=== PATIENT | female | born 1955 | race Caucasian/White ===

== ENCOUNTER → 2021-05-09 13:26 | Outpatient (BNVA) | payer OTHER, SELFPAY | PROVIDERS: Visit Provider Orthopaedic Surgery | DX: M21.169 Varus deformity, not elsewhere classified, unspecified knee (principal); M17.12 Unilateral primary osteoarthritis, left knee | CPT/HCPCS: 99212 ==

== ENCOUNTER → 2021-07-07 12:44 | Outpatient (BNVA) | payer OTHER, SELFPAY | PROVIDERS: Visit Provider Orthopaedic Surgery ==

== ENCOUNTER 2021-07-07 13:41 | Outpatient (REF) | payer OTHER, SELFPAY ==
[2021-07-07 13:56] LABS: MANUAL DIFF FLAG NO
[2021-07-07 14:48] LABS: Basophils Absolute Auto 0.1 X10*3/uL (0.0-0.2); Basophils Percent Auto 0.7 % (0-2); Eosinophils Absolute Auto 0.2 X10*3/uL (0.0-0.4); Eosinophils Percent Auto 3.3 % (0-4); Hematocrit 36.6 % (37.0-47.0); Hemoglobin 11.9 g/dl (12.0-16.0); Imm Gran Abs Auto 0.04 X10*3/uL (0.00-0.03); Imm Gran Pct Auto 0.5 % (0.0-0.4); Lymphocytes Absolute Auto 1.7 X10*3/uL (1.2-4.9); Lymphocytes Percent Auto 23.1 % (20-40); Mean Corpuscular HGB Conc 32.5 g/dl (31.0-35.0); Mean Corpuscular Hemoglobin 30.1 pg (27.0-33.0); Mean Corpuscular Volume 92.7 fL (80.0-98.0); Monocytes Absolute Auto 0.6 X10*3/uL (0.1-1.2); Monocytes Percent Auto 8.4 % (2-11); Neutrophils Absolute Auto 4.7 x10*3/uL (2.0-8.3); Platelet Count 281 X10*3/uL (160-400); Red Blood Count 3.95 X10*6/uL (4.20-5.50); Red Cell Distribution Width 12.9 % (11.0-16.0); White Blood Count 7.4 X10*3/uL (4.8-10.8)
[2021-07-07 15:16] LABS: Anion Gap 10 (12-20); Blood Urea Nitrogen 21 mg/dL (9-16); Calcium 9.8 mg/dL (8.4-10.2); Carbon Dioxide 29 mmol/L (22-29); Chloride 105 mmol/L (96-108); Estimated Glomerular Filt Rate > 60; Glucose Random 88 mg/dL (60-115); Potassium 4.7 mmol/L (3.3-5.1); Sodium 139 mmol/L (135-145)
== END 2021-07-07 13:42 | disposition home or self-care (01) ==
LOC: HO.LAB 13:41
PROVIDERS: PCP Family Medicine; Visit Provider Orthopaedic Surgery
DX: Z01.812 Encounter for preprocedural laboratory examination (principal)
CPT/HCPCS: 36415; 80048; 85025

== ENCOUNTER 2021-08-04 06:10 | Outpatient (REF) | payer OTHER, SELFPAY ==
--- NOTE | ~2021-08-04 | XR_ITS ---
EXAMINATION: XR BOTH KNEES AP STANDING XR LEFT KNEE, 2 VIEWS CLINICAL INFORMATION: Pain. COMPARISON: Bilateral knee radiographs dated 03/28/2019. TECHNIQUE: Standing AP view of both knees and lateral and sunrise views of the left knee. FINDINGS: Right Knee: Zvya-xy-yohvykbc medial compartment joint space narrowing with tiny marginal osteophytes, unchanged. No lytic or blastic osseous lesion. No acute fracture or dislocation. Left Knee: Severe medial compartment joint space narrowing with a small amount of intra-articular gas. Marginal osteophytes. Small patellofemoral marginal osteophytes. No osseous erosion. No fracture or dislocation. Trace joint effusion. No abnormal soft tissue calcification. XR/XR knee standing BI IMPRESSION: RIGHT KNEE: Npyi-mx-digxzeqa medial compartment osteoarthritis, unchanged. LEFT KNEE: Severe medial as well as bjrj-bw-lwhfzgbw patellofemoral compartment osteoarthritis, unchanged. Trace joint effusion.
--- NOTE | ~2021-08-04 | XR_ITS ---
EXAMINATION: XR BOTH KNEES AP STANDING XR LEFT KNEE, 2 VIEWS CLINICAL INFORMATION: Pain. COMPARISON: Bilateral knee radiographs dated 03/28/2019. TECHNIQUE: Standing AP view of both knees and lateral and sunrise views of the left knee. FINDINGS: Right Knee: Ojxg-oi-aybccsmj medial compartment joint space narrowing with tiny marginal osteophytes, unchanged. No lytic or blastic osseous lesion. No acute fracture or dislocation. Left Knee: Severe medial compartment joint space narrowing with a small amount of intra-articular gas. Marginal osteophytes. Small patellofemoral marginal osteophytes. No osseous erosion. No fracture or dislocation. Trace joint effusion. No abnormal soft tissue calcification. XR/XR knee LT 2V IMPRESSION: RIGHT KNEE: Bnfk-ec-xvaxyktn medial compartment osteoarthritis, unchanged. LEFT KNEE: Severe medial as well as fvxs-pp-tjhxqwpe patellofemoral compartment osteoarthritis, unchanged. Trace joint effusion.
== END 2021-08-04 06:11 | disposition home or self-care (01) ==
LOC: HO.HOSX 06:10
PROVIDERS: Visit Provider Physician Assistant
DX: M17.12 Unilateral primary osteoarthritis, left knee (principal); M25.561 Pain in right knee
CPT/HCPCS: 73560; 73565; 99212

== ENCOUNTER 2021-08-09 07:45 | Inpatient (IN) | payer OTHER, SELFPAY ==
[2021-07-21 12:22] VITALS: BP 141/92; PULSE 60; RESP 16; O2SAT 96; BMI 25.1
--- NOTE | 2021-07-21 12:49 | P.CONAN_ITS ---
Documented by User: Phyllis Ren NP 08/08/21 10:58 HPI - Anesthesia Eval Consult details Narrative: 65yo F for Left Knee Replacement Total PCP cleared [facility] Active Problems Active Problems: All Active Problems (Updated 07/21/21 @ 12:46 by Margaret Funes, TAURUS) Varus deformity of knee (Acute) Osteoarthritis of left knee (Acute) Past Medical History Medical History Anxiety Bipolar 1 disorder Constipation GERD (gastroesophageal reflux disease) History of electroconvulsive therapy Hx of skin cancer, basal cell Hx of thyroid nodule Insomnia Murmur, cardiac Osteopenia Seasonal allergies Family History Family history of problems with anesthesia: No Surgical History Surgical History H/O elbow surgery History of back surgery Hx of colonoscopy History of Problems with Anesthesia: No Social History Social History (Updated 08/04/21 @ 10:03 by Severo Gates) Are you a primary family member caretaker to a significant other at home: No Do you presently have visiting nurse or other home services: Yes (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 Narrative Narrative: No recent illness NO CP/SOB with activity >4mets Meds Allergies Allergy/AdvReac Type Severity Reaction Status Date / Time bee pollen Allergy Severe Anaphylaxis Verified 08/04/21 10:04 levofloxacin [From Levaquin] Allergy Severe Itching Verified 08/04/21 10:04 Penicillins Allergy Unknown Unknown Verified 08/04/21 10:04 Home Medications Medication Instructions Recorded Confirmed Last Taken Type omeprazole 20 mg capsule,delayed 20 mg PO BID 05/09/21 07/21/21 08/09/21 History release Calcium Citrate + D 07/21/21 Unknown History biotin 5,000 mcg sublingual tablet 5,000 mcg SUBLINGUAL DAILY 07/21/21 07/21/21 Unknown History docusate sodium 100 mg capsule 1 cap PO BID 07/21/21 07/21/21 Unknown History fluticasone propionate 50 spray INTRANASAL 07/21/21 Unknown History mcg/actuation nasal spray,suspension gabapentin 400 mg capsule 3 cap PO BEDTIME 07/21/21 07/21/21 Unknown History loratadine 10 mg tablet (Claritin) 10 mg PO DAILY PRN 07/21/21 07/21/21 Unknown History melatonin 5 mg tablet 10 mg PO BEDTIME 07/21/21 07/21/21 08/09/21 History multivitamin 1 tab PO DAILY 07/21/21 07/21/21 Unknown History quetiapine 400 mg tablet 850 mg PO BEDTIME 07/21/21 07/21/21 Unknown History Exam Exam Date and Time: July 21, 2021 1249 Height,Weight and Vital Signs: Height 5 ft 6.5 in Weight 71.668 kg Last Vital Signs Pulse 60 07/21/21 12:22 Resp 16 07/21/21 12:22 BP 141/92 H 07/21/21 12:22 Pulse Ox 96 07/21/21 12:22 Pertinent Lab Results Pertinent Lab Results: Laboratory Tests 07/07/21 07/07/21 13:55 13:55 WBC 7.4 Hgb 11.9 L Hct 36.6 L Plt Count 281 Sodium 139 Potassium 4.7 Chloride 105 Carbon Dioxide 29 BUN 21 H Creatinine 0.85 Airway Mallampati Class: III TM Dist: >3cm Neck ROM: Full Partial: Upper and Lower Heart: RRR Lungs: CTAB Assessment and Plan Assessment Anesthesia Assessment: Anesthesia Plan Discussed and PAT Visit Final Anesthetic Review Family History of Problems with Anesthesia: No History of Problems with Anesthesia: No Documented by User: Manny Novak MD 08/09/21 10:07 REPLACED BY [facility] Past Medical History Medical History Anxiety Bipolar 1 disorder Constipation GERD (gastroesophageal reflux disease) History of electroconvulsive therapy Hx of skin cancer, basal cell Hx of thyroid nodule Insomnia Murmur, cardiac Osteopenia Seasonal allergies Surgical History Surgical History H/O elbow surgery History of back surgery Hx of colonoscopy Social History Social History (Updated 08/04/21 @ 10:03 by Severo Gates) Are you a primary family member caretaker to a significant other at home: No Do you presently have visiting nurse or other home services: Yes (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 Meds Allergies Allergy/AdvReac Type Severity Reaction Status Date / Time bee pollen Allergy Severe Anaphylaxis Verified 08/04/21 10:04 levofloxacin [From Levaquin] Allergy Severe Itching Verified 08/04/21 10:04 Penicillins Allergy Unknown Unknown Verified 08/04/21 10:04 Home Medications Medication Instructions Recorded Confirmed Last Taken Type omeprazole 20 mg capsule,delayed 20 mg PO BID 05/09/21 07/21/21 08/09/21 History release Calcium Citrate + D 07/21/21 Unknown History biotin 5,000 mcg sublingual tablet 5,000 mcg SUBLINGUAL DAILY 07/21/21 07/21/21 Unknown History docusate sodium 100 mg capsule 1 cap PO BID 07/21/21 07/21/21 Unknown History fluticasone propionate 50 spray INTRANASAL 07/21/21 Unknown History mcg/actuation nasal spray,suspension gabapentin 400 mg capsule 3 cap PO BEDTIME 07/21/21 07/21/21 Unknown History loratadine 10 mg tablet (Claritin) 10 mg PO DAILY PRN 07/21/21 07/21/21 Unknown History melatonin 5 mg tablet 10 mg PO BEDTIME 07/21/21 07/21/21 08/09/21 History multivitamin 1 tab PO DAILY 07/21/21 07/21/21 Unknown History quetiapine 400 mg tablet 850 mg PO BEDTIME 07/21/21 07/21/21 Unknown History Assessment and Plan Final Anesthetic Review NPO: Yes ASA Class: II Final Preanesthetic Review: No Changes in Pt Med Stat, Meds/Allgs Chart Reviewed, Consent Obtained/Reviewed and Anes Risks/Benef Reviewed Patient Risk: Low Procedure Risk: Intermediate Anesthetic Plan Anesthetic Plan: MAC:, Neuraxial Block: and Regional Block Disposition: Standard PACU
[2021-07-21 14:26] LABS: MRSA Nasal PCR NEGATIVE (Negative); SA Nasal PCR NEGATIVE (Negative)
[2021-08-09] VITALS (13 sets, daily range): BP systolic 103–154; BP diastolic 64–96; PULSE 55–80; RESP 16–20; TEMP 36.1–36.8; O2SAT 96–100
--- NOTE | ~2021-08-09 | XR_ITS ---
EXAMINATION: XR KNEE, LEFT CLINICAL INFORMATION: Left knee replacement COMPARISON: Previous x-ray from earlier this month TECHNIQUE: Two views of the left knee. FINDINGS: There is a new 3 component left knee replacement in satisfactory position. No fracture or dislocation is seen. There are postoperative changes to the soft tissues. XR/XR knee LT 2V IMPRESSION: Satisfactory appearance of left knee replacement.
[2021-08-09] MEDS: Lactated Ringers 1,000 ML 100 ML IVCONT (08:22)
[2021-08-09] MEDS: vancomycin HCL 1,000 MG in 0.9 % Sodium Chloride 250 ML 270 MG IV ×2 (08:32→21:35)
[2021-08-09 08:34] LABS: COVID-19 Test Negative (Negative); IDNOW Serial# 9DD0AD1C
--- NOTE | 2021-08-09 09:15 | P.BOP_ITS ---
Brief Operative Note Date of Service: 08/09/21 Pre-op diagnosis: right knee OA Post-op diagnosis: same Procedure: Right TKA Implants: Mary triathalon press fit cruciate retaining 09/01/10 Surgeon: Tyler Hudson MD Anesthesia: regional and spinal Was an Club Steward used for this Procedure?: Yes Club Steward: Imani Mendosa Estimated blood loss (mL): 100 IV fluids (mL): 1,000 Pathology: other Condition: stable Disposition: PACU
--- NOTE | 2021-08-09 09:15 | MHC.SHP ---
Pre-Procedural Eval Section A Date of Service: 08/09/21 The patient is an INPATIENT: No Changes since office visit: Yes Patient answered all questions; No Cold of Flu in the past 2 weeks, No New Medical Problems and No Changes in Medication The History & Physical has been completed within 30 days and I have reviewed it.: Yes Section B Chief Complaint: Lt TKA Allergies: Allergies Allergy/AdvReac Type Severity Reaction Status Date / Time bee pollen Allergy Severe Anaphylaxis Verified 08/04/21 10:04 levofloxacin [From Levaquin] Allergy Severe Itching Verified 08/04/21 10:04 Penicillins Allergy Unknown Unknown Verified 08/04/21 10:04 Plan I have reviewed the history and physical and performed a pertinent physical examination on my patient. No changes have occurred unless specified.
--- NOTE | 2021-08-09 11:14 | PM.OP ---
Brief Operative Note Date of Service: 08/09/21 Pre-op diagnosis: left knee OA Post-op diagnosis: same Procedure: Left TKA Implants: Coin triathalon press fir posterior stabilized 10/03/10 with 29s cemented patella Surgeon: Tyler Hudson MD Anesthesia: regional and spinal Was an Public Relations Analyst used for this Procedure?: Yes Public Relations Analyst: Imani Mendosa Estimated blood loss (mL): 200 IV fluids (mL): 1,000 Pathology: other Condition: stable Disposition: PACU
--- NOTE | 2021-08-09 11:17 | P.OP_ITS ---
Operative Note Operative Note Date of Service: 08/09/21 Narrative: [address] [address] Brief Operative Note Signed Patient: Steffi Robertson MR#: [id number] : 1955 Date of Service: 08/09/21 Pre-op diagnosis: left knee OA Post-op diagnosis: same Procedure: Left TKA Implants: Collins triathalon press fir posterior stabilized 10/03/10 with 29s cemented castañeda lla Surgeon: Tyler Hudson MD Anesthesia: regional and spinal Was an Pilot Captain used for this Procedure?: Yes Pilot Captain: Imani Mendosa Estimated blood loss (mL): 200 IV fluids (mL): 1,000 Pathology: other Condition: stable Disposition: PACU Procedure in detail: The patient was brought to the operating room and prepped and draped in standard sterile fashion. A time-out was called to identify proper site proper procedure proper surgeon and IV antibiotics were administered. 1 g of IV tranexamic acid was administered. I began by making a midline incision to the retinaculum and performed a medial parapatellar arthrotomy. The patella was translated laterally and the knee was flexed up. The medial compartment was eburnated. I performed a small medial peel and resected the infrapatellar fat pad. Yohannes's line was then used to drill my intramedullary femoral guide and my distal femur cut of 10 mm was made in 5 degrees of valgus while protecting the soft tissues. I then measured a # 4 femur and placed my cutting guide and made my anterior posterior and chamfer cuts protecting the soft tissues at all times. I then made my box but removing the PCL. Once I was satisfied with my cuts I turned my attention to the tibia. I removed the meniscus medially and laterally and , using an external cutting guide, in line with the tibial crest and the third ray, I made my distal tibial cut in patient's [place] slope while protecting the PCL, the posterior soft tissues at all times. An extension block was used to confirm appropriate amount of bony resection. I then sized a #4 tibia and once I was satisfied that there was complete tibial coverage I placed my trial and with the trial femur in place took the knee through range of motion. I was satisfied with the extension and flexion as well as the stability at 0, 30 and 90 degrees. I then turned my attention to the patella where I removed 1 cm from the undersurface of the patella and then trialed a 29s patellar button. Again the knee was taken through range of motion I was satisfied with the tracking. I then returned to the femur and drilled my femoral lug holes and prepared the tibia. A femoral bone plug was placed and the knee was irrigated copiously. I then press fit the tibia and femur in standard fashion and cemented in the patella. I trialed different inserts until I selected a #11 insert. The knee was stable at 0,30 and 90 deg with 0-130 deg of motion. The final insert was placed and a 3 minutes iodine soak with local TXA was performed. The knee was then closed with a running Quill suture, a 3 0 Vicryl and darlene on the skin. Patient was then placed in sterile dressing and brought to recovery room in stable condition there were no known complications.
[2021-08-09] MEDS: Dextrose 5 % and 0.45 % NaCl 1,000 ML 80 ML IVCONT ×2 (12:37→23:34)
[2021-08-09] MEDS: HYDROmorphone HCl 1 MG/ML SYRINGE 0.25 MG IVPUSH ×3 (16:03→23:18)
[2021-08-09] MEDS: 0.9 % Sodium Chloride Flush 3 ML SYRINGE IVFLUSH (16:04)
[2021-08-09] MEDS: oxyCODONE HCl Immed Release 5 MG TABLET PO (17:11)
[2021-08-09] MEDS: oxyCODONE HCl Immed Release 5 MG TABLET 10 MG PO ×2 (18:09→21:51)
[2021-08-09] MEDS: Melatonin 3 MG TABLET 9 MG PO (21:33)
[2021-08-09] MEDS: Docusate Sodium 100 MG CAPSULE PO (21:34)
[2021-08-09] MEDS: Gabapentin 400 MG CAPSULE 1200 MG PO (21:34)
[2021-08-09] MEDS: oxyCODONE HCl ER 10 MG TAB.ER.12H PO (21:35)
[2021-08-09] MEDS: Celecoxib 200 MG CAPSULE PO (21:35)
[2021-08-10] VITALS (7 sets, daily range): BP systolic 91–142; BP diastolic 60–67; PULSE 80–106; RESP 16–18; TEMP 36.4–36.8; O2SAT 95–100
[2021-08-10] MEDS: oxyCODONE HCl Immed Release 5 MG TABLET 10 MG PO ×4 (01:59→23:00)
[2021-08-10] MEDS: HYDROmorphone HCl 1 MG/ML SYRINGE 0.25 MG IVPUSH ×5 (03:35→19:50)
[2021-08-10 06:21] LABS: MANUAL DIFF FLAG NO
[2021-08-10] MEDS: Omeprazole 20 MG CAPSULE.DR PO ×2 (06:21→16:36)
[2021-08-10 06:31] LABS: Basophils Percent Auto 0.1 % (0-2); Eosinophils Percent Auto 0.3 % (0-4); Hematocrit 27.3 % (37.0-47.0); Imm Gran Abs Auto 0.02 X10*3/uL (0.00-0.03); Imm Gran Pct Auto 0.3 % (0.0-0.4); Lymphocytes Absolute Auto 1.6 X10*3/uL (1.2-4.9); Lymphocytes Percent Auto 22.1 % (20-40); Mean Platelet Volume 9.3 fL (9.4-12.3); Neutrophils Absolute Auto 4.6 x10*3/uL (2.0-8.3); Neutrophils Percent Auto 63.2 % (45-73); Platelet Count 194 X10*3/uL (160-400); Red Cell Distribution Width 13.1 % (11.0-16.0); White Blood Count 7.2 X10*3/uL (4.8-10.8)
--- NOTE | 2021-08-10 06:48 | HO.POSTANES ---
Post Anesthesia Evaluation Post Anesthesia Evaluation Vital Signs: Vital Signs Temp Pulse Resp BP Pulse Ox 08/10/21 04:00 97.7 F 80 18 112/67 96 08/09/21 23:20 98.3 F 80 18 121/79 97 08/09/21 20:00 97.9 F 74 18 134/80 99 Anesthesia: Spinal and Nerve Block Mental Status: Awake Pain Control: Satisfactory (pain was 7-8/10) Nausea/Vomiting: None Hydration: Adequate Anesthesia-Related Issues: No Anes. Related Issues
[2021-08-10 06:52] LABS: Anion Gap 10 (12-20); Blood Urea Nitrogen 20 mg/dL (9-16); Calcium 8.3 mg/dL (8.4-10.2); Carbon Dioxide 24 mmol/L (22-29); Chloride 104 mmol/L (96-108); Estimated Glomerular Filt Rate > 60; Glucose Fasting 153 mg/dL (60-99); Potassium 3.7 mmol/L (3.3-5.1); Sodium 134 mmol/L (135-145)
--- NOTE | 2021-08-10 08:55 | MHC.CM.PN ---
CM met with Patient at bedside and addressed IMM with her, providing her with the original and placing a copy on the chart. 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 CM spoke with PT who has indicated home with PT vs STR is the plan at this point. CM has initiated and will follow for dc planning. PCP is Dr. Theresa Nelson and Patient has received Moderna vax X3.Patient's Sister/Jennifer at [phone] is Patient's HCP.
--- NOTE | 2021-08-10 09:10 | PM.PNORT ---
Subjective Subjective Date of Service: 08/10/21 Interval history: POd 1 s/p LT TKA no overnight events pain is managable denies sob, cp, palpitations Physical Exam Vital Signs: Vital Signs: Last Vital Signs Temp 98.3 F 08/10/21 07:47 Pulse 94 08/10/21 07:47 Resp 18 08/10/21 07:47 BP 91/62 08/10/21 07:47 Pulse Ox 98 08/10/21 07:47 BMI result Body Mass Index 25.1 Const: General: cooperative, healthy appearing and no acute distress Resp: Effort & Inspection: normal respiratory effort and able to speak in complete sentences Cardio: Rate: regular rate Peripheral pulses: Peripheral pulses 2+ throughout GI: Palpation (GI): Soft to palpation Skin: General skin exam: no rashes or lesions noted Extrem: Other: bandage intact. No erythema or joint effusion. Calf supple nontender. Neurovascularly intact. Procedures Date of Service Date of Service: 08/10/21 Progress Note: A&P Assessment and plan (1) Status post total knee replacement, left: Status: Acute Assessment and Plan: Continue pain mgmnt Begin Aspirin for dvt ppx begin PT for LT TKA Dispo planning-Pending PT eval, pain mgmnt Fall Risk Details Current Medications: Current Medications Acetaminophen (Acetaminophen 325 Mg Tablet) 650 mg PO Q6H PRN PRN Reason: Pain, Mild (Pain Scale 1-3) Aspirin (Aspirin 325 Mg Tablet) 325 mg PO BID [facility] Celecoxib (Celecoxib 200 Mg Capsule) 200 mg PO BID [facility] Last Admin: 08/09/21 21:35 Dose: 200 mg Documented by: Docusate Sodium (Docusate Sodium 100 Mg Capsule) 100 mg PO BID [facility] Last Admin: 08/09/21 21:34 Dose: 100 mg Documented by: Gabapentin (Gabapentin 400 Mg Capsule) 1,200 mg PO BEDTIME [facility] Last Admin: 08/09/21 21:34 Dose: 1,200 mg Documented by: Hydromorphone HCl (Hydromorphone Hcl 1 Mg/Ml Syringe) 0.25 mg IVPUSH Q3H PRN; Protocol PRN Reason: Pain, Severe (Pain Scale 7-10) Last Admin: 08/10/21 03:35 Dose: 0.25 mg Documented by: Dextrose/Sodium Chloride (D51/2ns) 1,000 mls @ 80 mls/hr IVCONT .[id number] [facility] Last Admin: 08/09/21 23:34 Dose: 80 mls/hr Documented by: Loratadine (Loratadine 10 Mg Tablet) 10 mg PO DAILY PRN PRN Reason: Allergy Symptoms Melatonin (Melatonin 3 Mg Tablet) 9 mg PO BEDTIME [facility] Last Admin: 08/09/21 21:33 Dose: 9 mg Documented by: Omeprazole (Omeprazole 20 Mg Capsule.Dr) 20 mg PO BID@0630,1630 [facility] Last Admin: 08/10/21 06:21 Dose: 20 mg Documented by: Ondansetron HCl (Ondansetron Hcl 4 Mg/2 Ml Vial) 4 mg IVPUSH Q8H PRN PRN Reason: Nausea and Vomiting Oxycodone HCl (Oxycodone Hcl Er 10 Mg Tab.Er.12h) 10 mg PO BID [facility] Last Admin: 08/09/21 21:35 Dose: 10 mg Documented by: Oxycodone HCl (Oxycodone Hcl Immed Release 5 Mg Tablet) 10 mg PO Q4H PRN PRN Reason: Pain, Moderate (Pain Scale 4-6 Last Admin: 08/10/21 06:21 Dose: 10 mg Documented by: Quetiapine Fumarate 800 mg/ (Quetiapine Fumarate 50 mg) 850 mg PO BEDTIME [facility] Last Admin: 08/09/21 21:33 Dose: 850 mg Documented by: Sodium Chloride (0.9 % Sodium Chloride Flush 3 Ml Syringe) 3 ml IVFLUSH QSHIFT [facility] Last Admin: 08/10/21 00:54 Dose: Not Given Documented by: Time Spent With Patient Time: Total time spent is greater than 50% in coordination of care (as documented) at patient's floor/unit and/or counseling patient: Time with patient: less than 15 minutes Quality Stroke Does the patient have a stroke diagnosis?: No VTE Prior VTE?: No VTE Risk Level:: Surgical - very high VTE Device Contraindication: N/A - Device Ordered VTE Drug Contraindication: N/A - Med Ordered
[2021-08-10] MEDS: Aspirin 325 MG TABLET PO ×2 (09:11→19:49)
[2021-08-10] MEDS: oxyCODONE HCl ER 10 MG TAB.ER.12H PO ×2 (09:11→19:49)
[2021-08-10] MEDS: Docusate Sodium 100 MG CAPSULE PO ×2 (09:11→19:50)
[2021-08-10] MEDS: Celecoxib 200 MG CAPSULE PO ×2 (09:11→19:50)
[2021-08-10] MEDS: Dextrose 5 % and 0.45 % NaCl 1,000 ML 80 ML IVCONT ×2 (12:34→22:58)
--- NOTE | 2021-08-10 13:35 | MHC.CM.PN ---
PATIENT ACCEPTS [facility] BED OFFER. SHE IS AWARE THAT [facility] CHO[facility]) IS CURRENTLY CLOSEDTO ADMISSIONS. [facility] STARTING AUTH PROCESS. LOR Corona. AWARE
--- NOTE | 2021-08-10 14:30 | MHC.CM.PN ---
PER CONVERSATION WITH PATIENT, SHE OCCASIONALLY SMOKES MARIJUANA SHE DENIES ANY ILLEGAL SUBSTANCE USE, ALTHOUGH NOT ASKED ABOUT THIS. ECT WAS APPROXIMATELY 13 YEARS AGO. INFORMATION RELAYED TO [facility]IA[facility] FOR [facility] LEVELING PURPOSES (PER REQUEST)
[2021-08-10] MEDS: Melatonin 3 MG TABLET 9 MG PO (19:49)
[2021-08-10] MEDS: Gabapentin 400 MG CAPSULE 1200 MG PO (19:50)
[2021-08-11] VITALS (7 sets, daily range): BP systolic 98–126; BP diastolic 56–67; PULSE 92–123; RESP 17–22; TEMP 36.4–37.4; O2SAT 95–98
[2021-08-11] MEDS: HYDROmorphone HCl 1 MG/ML SYRINGE 0.25 MG IVPUSH ×5 (03:21→21:25)
[2021-08-11] MEDS: oxyCODONE HCl Immed Release 5 MG TABLET 10 MG PO ×2 (04:18→19:44)
[2021-08-11] MEDS: Omeprazole 20 MG CAPSULE.DR PO ×2 (05:54→16:11)
[2021-08-11 06:28] LABS: MANUAL DIFF FLAG NO
[2021-08-11 06:37] LABS: Basophils Percent Auto 0.4 % (0-2); Eosinophils Percent Auto 0.4 % (0-4); Hematocrit 27.3 % (37.0-47.0); Imm Gran Abs Auto 0.06 X10*3/uL (0.00-0.03); Imm Gran Pct Auto 0.7 % (0.0-0.4); Lymphocytes Absolute Auto 1.5 X10*3/uL (1.2-4.9); Lymphocytes Percent Auto 17.4 % (20-40); Mean Corpuscular Hemoglobin 30.8 pg (27.0-33.0); Mean Corpuscular Volume 93.5 fL (80.0-98.0); Mean Platelet Volume 9.3 fL (9.4-12.3); Monocytes Percent Auto 11.7 % (2-11); Neutrophils Absolute Auto 5.8 x10*3/uL (2.0-8.3); Neutrophils Percent Auto 69.4 % (45-73); Platelet Count 176 X10*3/uL (160-400); Red Blood Count 2.92 X10*6/uL (4.20-5.50); Red Cell Distribution Width 13.4 % (11.0-16.0); White Blood Count 8.4 X10*3/uL (4.8-10.8)
[2021-08-11 07:16] LABS: Anion Gap 12 (12-20); Blood Urea Nitrogen 16 mg/dL (9-16); Calcium 8.5 mg/dL (8.4-10.2); Carbon Dioxide 25 mmol/L (22-29); Chloride 104 mmol/L (96-108); Estimated Glomerular Filt Rate > 60; Glucose Fasting 129 mg/dL (60-99); Potassium 4.5 mmol/L (3.3-5.1); Sodium 136 mmol/L (135-145)
[2021-08-11] MEDS: Aspirin 325 MG TABLET PO ×2 (08:58→20:37)
[2021-08-11] MEDS: Celecoxib 200 MG CAPSULE PO ×2 (08:58→20:38)
[2021-08-11] MEDS: oxyCODONE HCl ER 10 MG TAB.ER.12H PO ×2 (08:58→20:38)
[2021-08-11] MEDS: Docusate Sodium 100 MG CAPSULE PO ×2 (08:59→20:38)
[2021-08-11] MEDS: 0.9 % Sodium Chloride Flush 3 ML SYRINGE IVFLUSH (09:01)
--- NOTE | 2021-08-11 09:11 | PM.PNORT ---
Subjective Subjective Date of Service: 08/11/21 Interval history: POD 2 s/p LT TKA no overnight events has been working with PT and using bathroom-has diff time due to pain denies cp, sob, palpitations Physical Exam Vital Signs: Vital Signs: Last Vital Signs Temp 97.7 F 08/11/21 08:00 Pulse 123 H 08/11/21 08:00 Resp 22 H 08/11/21 08:00 BP 105/65 08/11/21 03:45 Pulse Ox 95 08/11/21 08:00 BMI result Body Mass Index 25.1 Const: General: cooperative, healthy appearing and no acute distress Resp: Effort & Inspection: normal respiratory effort and able to speak in complete sentences Cardio: Rate: regular rate Peripheral pulses: Peripheral pulses 2+ throughout GI: Palpation (GI): Soft to palpation Skin: General skin exam: no rashes or lesions noted Extrem: Other: incision clean dry and intact. [place] intact. No erythema or joint effusion. Calf supple nontender. Neurovascularly intact. Procedures Date of Service Date of Service: 08/11/21 Progress Note: A&P Assessment and plan (1) Status post total knee replacement, left: Status: Acute Assessment and Plan: Continue pain mgmnt Aspirin for dvt ppx PT for LT TKA Dispo planning-Pending placement Fall Risk Details Current Medications: Current Medications Acetaminophen (Acetaminophen 325 Mg Tablet) 650 mg PO Q6H PRN PRN Reason: Pain, Mild (Pain Scale 1-3) Aspirin (Aspirin 325 Mg Tablet) 325 mg PO BID [facility] Last Admin: 08/11/21 08:58 Dose: 325 mg Documented by: Celecoxib (Celecoxib 200 Mg Capsule) 200 mg PO BID [facility] Last Admin: 08/11/21 08:58 Dose: 200 mg Documented by: Docusate Sodium (Docusate Sodium 100 Mg Capsule) 100 mg PO BID [facility] Last Admin: 08/11/21 08:59 Dose: 100 mg Documented by: Gabapentin (Gabapentin 400 Mg Capsule) 1,200 mg PO BEDTIME [facility] Last Admin: 08/10/21 19:50 Dose: 1,200 mg Documented by: Hydromorphone HCl (Hydromorphone Hcl 1 Mg/Ml Syringe) 0.25 mg IVPUSH Q3H PRN; Protocol PRN Reason: Pain, Severe (Pain Scale 7-10) Last Admin: 08/11/21 08:59 Dose: 0.25 mg Documented by: Dextrose/Sodium Chloride (D51/2ns) 1,000 mls @ 80 mls/hr IVCONT .[id number] [facility] Last Admin: 08/10/21 22:58 Dose: 80 mls/hr Documented by: Loratadine (Loratadine 10 Mg Tablet) 10 mg PO DAILY PRN PRN Reason: Allergy Symptoms Melatonin (Melatonin 3 Mg Tablet) 9 mg PO BEDTIME [facility] Last Admin: 08/10/21 19:49 Dose: 9 mg Documented by: Omeprazole (Omeprazole 20 Mg Capsule.) 20 mg PO BID@0630,1630 [facility] Last Admin: 08/11/21 05:54 Dose: 20 mg Documented by: Ondansetron HCl (Ondansetron Hcl 4 Mg/2 Ml Vial) 4 mg IVPUSH Q8H PRN PRN Reason: Nausea and Vomiting Oxycodone HCl (Oxycodone Hcl Er 10 Mg Tab.Er.12h) 10 mg PO BID [facility] Last Admin: 08/11/21 08:58 Dose: 10 mg Documented by: Oxycodone HCl (Oxycodone Hcl Immed Release 5 Mg Tablet) 10 mg PO Q4H PRN PRN Reason: Pain, Moderate (Pain Scale 4-6 Last Admin: 08/11/21 04:18 Dose: 10 mg Documented by: Quetiapine Fumarate 800 mg/ (Quetiapine Fumarate 50 mg) 850 mg PO BEDTIME [facility] Last Admin: 08/10/21 19:48 Dose: 850 mg Documented by: Sodium Chloride (0.9 % Sodium Chloride Flush 3 Ml Syringe) 3 ml IVFLUSH QSHIFT [facility] Last Admin: 08/11/21 09:01 Dose: 3 ml Documented by: Time Spent With Patient Time: Total time spent is greater than 50% in coordination of care (as documented) at patient's floor/unit and/or counseling patient: Time with patient: less than 15 minutes Quality Stroke Does the patient have a stroke diagnosis?: No VTE Prior VTE?: No VTE Risk Level:: Surgical - very high VTE Device Contraindication: N/A - Device Ordered VTE Drug Contraindication: N/A - Med Ordered
[2021-08-11] MEDS: Dextrose 5 % and 0.45 % NaCl 1,000 ML 80 ML IVCONT ×2 (11:00→22:30)
--- NOTE | 2021-08-11 15:35 | MHC.CM.PN ---
PATIENT DC HELD YESTERDAY AND TODAY PER ORTHO. [facility] REFERRALS UPDATED AND REQUESTED TO PLEASE CONTINUE TO FOLLOW CASE MANAGEMENT CONTINUING TO FOLLOW
[2021-08-11] MEDS: Melatonin 3 MG TABLET 9 MG PO (20:38)
[2021-08-11] MEDS: Gabapentin 400 MG CAPSULE 1200 MG PO (20:38)
[2021-08-12] VITALS (16 sets, daily range): BP systolic 99–126; BP diastolic 59–76; PULSE 74–113; RESP 17–20; TEMP 36–37.2; O2SAT 94–98
[2021-08-12] MEDS: HYDROmorphone HCl 1 MG/ML SYRINGE 0.25 MG IVPUSH ×4 (00:26→20:39)
[2021-08-12] MEDS: Omeprazole 20 MG CAPSULE.DR PO ×2 (06:02→17:18)
[2021-08-12] MEDS: oxyCODONE HCl Immed Release 5 MG TABLET 10 MG PO ×3 (06:20→17:17)
[2021-08-12 06:24] LABS: MANUAL DIFF FLAG NO
[2021-08-12 06:28] LABS: Basophils Percent Auto 0.3 % (0-2); Eosinophils Absolute Auto 0.1 X10*3/uL (0.0-0.4); Eosinophils Percent Auto 1.5 % (0-4); Hematocrit 21.5 % (37.0-47.0); Hemoglobin 7.1 g/dl (12.0-16.0); Imm Gran Abs Auto 0.05 X10*3/uL (0.00-0.03); Imm Gran Pct Auto 0.8 % (0.0-0.4); Lymphocytes Absolute Auto 1.2 X10*3/uL (1.2-4.9); Lymphocytes Percent Auto 19.5 % (20-40); Mean Corpuscular Hemoglobin 30.6 pg (27.0-33.0); Mean Corpuscular Volume 92.7 fL (80.0-98.0); Mean Platelet Volume 8.9 fL (9.4-12.3); Monocytes Absolute Auto 0.7 X10*3/uL (0.1-1.2); Neutrophils Absolute Auto 3.9 x10*3/uL (2.0-8.3); Neutrophils Percent Auto 65.9 % (45-73); Platelet Count 149 X10*3/uL (160-400); Red Blood Count 2.32 X10*6/uL (4.20-5.50); Red Cell Distribution Width 13.4 % (11.0-16.0)
[2021-08-12 06:54] LABS: Anion Gap 8 (12-20); Blood Urea Nitrogen 13 mg/dL (9-16); Calcium 8.1 mg/dL (8.4-10.2); Carbon Dioxide 26 mmol/L (22-29); Chloride 107 mmol/L (96-108); Creatinine Clr Calc Pharmacy 89.8; Estimated Glomerular Filt Rate > 60; Glucose Fasting 131 mg/dL (60-99); Potassium 3.9 mmol/L (3.3-5.1); Sodium 137 mmol/L (135-145)
[2021-08-12] MEDS: Celecoxib 200 MG CAPSULE PO ×2 (08:50→20:29)
[2021-08-12] MEDS: oxyCODONE HCl ER 10 MG TAB.ER.12H PO ×2 (08:51→20:28)
[2021-08-12] MEDS: Aspirin 325 MG TABLET PO ×2 (08:51→20:28)
[2021-08-12] MEDS: Docusate Sodium 100 MG CAPSULE PO ×2 (08:51→20:28)
--- NOTE | 2021-08-12 15:56 | MHC.CM.PN ---
[facility] HAS AUTH TO ADMIT. THEY ARE ASKING FOR AN 1100 TRANSFER IF POSSIBLE (FOR Sunday08/13/21) LOR DÍAZ MADE AWARE. IMM 08/12 IN CHART.
[2021-08-12] MEDS: Gabapentin 400 MG CAPSULE 1200 MG PO (20:28)
[2021-08-12] MEDS: Melatonin 3 MG TABLET 9 MG PO (20:28)
[2021-08-12] MEDS: 0.9 % Sodium Chloride Flush 3 ML SYRINGE IVFLUSH (20:29)
[2021-08-13 03:34] VITALS: BP 114/66; PULSE 99; RESP 17; TEMP 36.5; O2SAT 95
[2021-08-13] MEDS: Omeprazole 20 MG CAPSULE.DR PO (05:45)
[2021-08-13] MEDS: HYDROmorphone HCl 1 MG/ML SYRINGE 0.25 MG IVPUSH ×2 (06:24→09:51)
[2021-08-13] MEDS: Aspirin 325 MG TABLET PO (07:52)
[2021-08-13] MEDS: Celecoxib 200 MG CAPSULE PO (07:52)
[2021-08-13] MEDS: oxyCODONE HCl ER 10 MG TAB.ER.12H PO (07:52)
[2021-08-13] MEDS: 0.9 % Sodium Chloride Flush 3 ML SYRINGE IVFLUSH (07:53)
[2021-08-13] MEDS: Docusate Sodium 100 MG CAPSULE PO (07:53)
[2021-08-13] MEDS: oxyCODONE HCl Immed Release 5 MG TABLET 10 MG PO ×2 (07:53→12:13)
[2021-08-13 08:00] VITALS: BP 133/69; PULSE 76; RESP 20; TEMP 36.7; O2SAT 100
--- NOTE | 2021-08-13 08:42 | PM.EVENT ---
Event Note Date of Service: 08/12/21 Event Note: d/c held due to 2units PRBCs will recheck on 08/13 for anticipated d/c
--- NOTE | 2021-08-13 09:15 | P.DS_ITS ---
DS: Providers Provider Date of Service: 08/13/21 Date of admission: 08/09/21 07:45 Primary care physician: Theresa Nelson MD DS: Diagnosis Discharge Diagnosis (1) Status post total knee replacement, left: Status: Acute DS: Summary Hospital Course Hospital Course: The patient underwent a successful left total knee arthroplasty, was transferred to PACU and then to the floor to recover. During their stay, their vitals were stable, afebrile at 97.7. POD 3 h/h dropped from 9.0/27.3 to 7.1/21.5. She was given 2units of PRBCs and on d/c her Labs were unremarkable, H/H 9.6/28.5. POD 1 she was started on Aspirin twice a day for DVT ppx, she also received PT and OT services twice a day. Prior to discharge, the dressing was changed, incision clean dry and intact, new Aquacel dressing applied and the plan was to be discharged to [facility]. Time Spent with Patient Time attestation: Total time spent providing and/or coordinating discharge services: Discharge coordination time: Less than 30 minutes Quality: Stroke Does the patient have a stroke diagnosis?: No Physical Exam Vital Signs: Vital Signs: Last Vital Signs Temp 97.7 F 08/13/21 03:34 Pulse 99 08/13/21 03:34 Resp 17 08/13/21 03:34 BP 114/66 08/13/21 03:34 Pulse Ox 95 08/13/21 03:34 BMI result Body Mass Index 25.1 Const: General: cooperative, healthy appearing and no acute distress Resp: Effort & Inspection: normal respiratory effort and able to speak in complete sentences Cardio: Rate: regular rate Peripheral pulses: Peripheral pulses 2+ throughout GI: Palpation (GI): Soft to palpation Skin: General skin exam: no rashes or lesions noted Extrem: Other: incision clean dry and intact. Armando intact. No erythema or joint effusion. Calf supple nontender. Neurovascularly intact. 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] - 2 Weeks (08/25/21 12:45 [facility] [place] [facility] Imani Mendosa PA-C) Discharge Medications: New oxycodone 10 mg tablet 10 mg PO Q4H PRN (Reason: Pain, Moderate (Pain Scale 4-6) 7 Days Qty: 42 0RF acetaminophen 325 mg Tablet 650 mg PO Q6H PRN (Reason: Pain, Mild (Pain Scale 1-3)) 30 Days Qty: 240 0RF aspirin 325 mg Tablet 325 mg PO BID 42 Days Qty: 84 0RF Continued quetiapine 400 mg tablet 850 mg PO BEDTIME 0RF melatonin 5 mg tablet 10 mg PO BEDTIME 0RF gabapentin 400 mg capsule 3 cap PO BEDTIME 0RF docusate sodium 100 mg capsule 1 cap PO BID 0RF multivitamin Tablet 1 tab PO DAILY 0RF biotin 5,000 mcg Tablet, Sublingual 5,000 mcg SUBLINGUAL DAILY 0RF Calcium Citrate + D 0RF loratadine [Claritin] 10 mg Tablet 10 mg PO DAILY PRN (Reason: Allergy Symptoms) 0RF fluticasone propionate 50 mcg/actuation spray,suspension 1 spray intranasal DAILY PRN (Reason: Allergy Symptoms) 0RF omeprazole 20 mg capsule,delayed release(DR/EC) 20 mg PO BID 0RF Discharge Orders: Discharge Order (Routine); Ordered 08/13/21 Ordered By: Imani Mendosa Diet: regular diet Activity on Discharge: Use cane or walker Stand Alone Forms: Patient Portal Discharge page Care Plan Goals: Restore function of joint Health Concerns: Keep dressing clean, dry and intact. Any concerns-Please call our office [facility] Plan of Treatment: Physical Therapy Pain management DVT prophylaxis Assessment: * Physical Therapy for Total knee arthroplasty: gait training, ROM 0-12, quad strength * Limit stair climbing * No showering, no tub bath-keep dressing clean, dry and intact * No driving x6 weeks * Continue Aspirin twice a day x weeks * Follow up with [facility] [place] [facility] in 2 weeks * ---08/25/2211:45[facility] [place] [facility] SurgeonsImani Mendosa PA-C
[2021-08-13 09:57] LABS: Hematocrit 28.5 % (37.0-47.0); Hemoglobin 9.6 g/dl (12.0-16.0)
[2021-08-13 10:18] LABS: COVID-19 Test Negative (Negative)
== END 2021-08-13 13:12 | disposition skilled nursing facility (03) | DRG 470 ==
LOC: HO.SSSA 07:49 → HO.S3 12:09
PROVIDERS: Physician Assistant; Admitting Provider Orthopaedic Surgery; PCP Family Medicine; Visit Provider Orthopaedic Surgery
PROC: 0SRD0J9 Replacement of Left Knee Joint with Synthetic Substitute, Cemented, Open Approach (ICD-10-PCS; CPT 27447; principal; 2021-08-09 09:30)
DX: M17.12 Unilateral primary osteoarthritis, left knee (principal); K21.9 Gastro-esophageal reflux disease without esophagitis; Z20.822 Contact with and (suspected) exposure to COVID-19; Z87.891 Personal history of nicotine dependence; Z88.0 Allergy status to penicillin; Z79.82 Long term (current) use of aspirin; Z79.51 Long term (current) use of inhaled steroids; Z79.899 Other long term (current) drug therapy
CPT/HCPCS: 36415; 73560; 80048; 85014; 85018; 85025; 86850; 86900; 86901; 86923; 87635; 87640; 87641; 88305; 88311; 97110; 97116; 97162; 97530; C1713; C1776; J1100; J1170; J2250; J3370; P9016

== ENCOUNTER 2021-08-25 11:52 | Outpatient (RCR) | payer OTHER, SELFPAY ==
--- NOTE | 2021-08-25 15:26 | MHC.PT.EP ---
[facility] [place] Office [place] Office [place] Office [address] [phone] F: [phone] F: [phone] F: [phone] F: [phone] Physical Therapy Plan of Care Date of Evaluation: Date of Surgery: 08/09/21 Diagnosis: LEFT TKA (08/09/21) Assessment: KYLIE IS A PLEASANT 65 YO FEMALE WHO PRESENTS FOR LEFT TKA POST-OP VISIT. UPON EXAM TODAY SHE PRESENTS WITH THE EXPECTED IMPAIRMENTS INCLUDING DECREASED ROM AND STRENGTH, INCREASED EDEMA AND PAIN, ALTERED GAIT AND PAIN. FUNCTIONAL LIMITATIONS INCLUDE DECREASED ABILITY TO PERFORM WALKING WITHOUT ASSISTIVE DEVICE, DECREASED ABILITY TO PERFORM HOMEMAKING AND SELF CARE TASKS, DECREASED ABILITY TO PERFORM STAIR NEGOTIATION, DECREASED ABILITY TO PARTICIPATE IN COMMUNITY AND RECREATIONAL ACTIVITIES. A PT IS A GOOD CANDIDATE FOR SKILLED PT DUE TO AGE, POTENTIAL REMEDIATION OF IMPAIRMENTS, TYPICAL DISEASE/CONDITION PROGRESSION AND PROGNOSIS, COMORBIDITIES, AND MOTIVATION. PT WOULD BENEFIT FROM TAILORED PROGRAM OF THERAPEUTIC ACTIVITIES, FUNCTIONAL TRAINING, GAIT TRAINING, POSTURAL EDUCATION, NEUROMUSCULAR RE-EDUCATION, AND MODALITIES NEEDED. Frequency and Duration: The patient will be seen 2 X WEEK FOR 8 WEEKS Short Term Goals: INITIATE HEP AND PROMOTE SELF MANAGEMENT OF SYMPTOMS Belt Knife Feeder Goals: IN 8 WEEKS: TO DEMONSTRATE FULL KNEE ROM, EQUAL SHREYA TO DEMONSTRATE FULL LE STRENGTH, EQUAL SHREYA TO ASCEND AND DESCEND STAIRS WITHOUT PAIN GREATER THAN 2/10 TO AMBULATE AD MARK ON LEVEL AND UNEVEN SURFACES FOR FITNESS WITHOUT PAIN GREATER THAN 2/10 TO PERFORM ALL HOMEMAKING AND SELF CARE TASKS WITH INDEPENDENCE Treatment Plan: Modalities to reduce pain, spasms and effusion. Manual therapy to restore motion and function. Therapeutic exercise to improve strength and flexibility. Neuromuscular re-education for posture and balance. Therapeutic activities to return to functional activities of daily living. Electronically signed by: VICKY RAYMUNDO PT, DPT Please sign and return to therapist. Thank you for your referral.
== END 2021-12-09 09:04 | disposition home or self-care (01) ==
LOC: HO.PT 11:52
PROVIDERS: Visit Provider Physician Assistant
DX: Z96.652 Presence of left artificial knee joint (principal)
CPT/HCPCS: 97110; 97161

== ENCOUNTER → 2021-08-25 12:35 | Outpatient (BNVA) | payer OTHER, SELFPAY | PROVIDERS: PCP Family Medicine; Visit Provider Physician Assistant | DX: Z47.1 Aftercare following joint replacement surgery (principal); Z96.652 Presence of left artificial knee joint | CPT/HCPCS: 99212 ==

== ENCOUNTER 2021-09-05 13:08 | Emergency (ER) | payer OTHER, SELFPAY ==
--- NOTE | ~2021-09-05 | XR_ITS ---
EXAMINATION: XR KNEE, LEFT CLINICAL INFORMATION: Knee pain COMPARISON: 08/09/2021 TECHNIQUE: Four views of the left knee. FINDINGS: Prosthetic components of the left total knee arthroplasty are appropriately aligned without periprosthetic fracture or abnormal lucency. No component migration. Small joint effusion. XR/XR knee LT 4V IMPRESSION: Appropriate alignment of the left total knee arthroplasty without evidence of complications. Small joint effusion.
--- NOTE | ~2021-09-05 | US_ITS ---
EXAMINATION: US VENOUS ULTRASOUND WITH DOPPLER LOWER EXTREMITY, LEFT CLINICAL INFORMATION: Pain status post knee surgery. Question DVT versus abscess. COMPARISON: None TECHNIQUE: Ultrasound of the deep veins is performed from the hip to the calf with compression sonography and color and pulse Doppler assessment. Spectral analysis with color-flow imaging is performed. FINDINGS: The posterior tibial vein is expanded, noncompressible, and lacks color-flow in the mid calf. This is consistent with an acute DVT. The common femoral vein, femoral vein, profunda femoral vein, popliteal vein, and peroneal vein are patent, compressible, and have normal color flow and augmentation. US/US venous duplex LE IMPRESSION: Acute DVT in the left posterior tibial vein. This critical result was discussed with BRE Singh at 1500 on 09/05/2021 and it was ascertained that the content and urgency of the report was understood at the time of direct communication.
[2021-09-05 13:16] VITALS: BP 142/86; PULSE 100; O2SAT 98
[2021-09-05 13:25] VITALS: PULSE 77; RESP 16; TEMP 37.3; O2SAT 95; BMI 25.4
--- NOTE | 2021-09-05 14:01 | ED.EXTPRO ---
HPI - Extremity Problem General Chief complaint: Extremity Injury, Lower <BRE Singh - Last Filed: 09/05/21 18:23> Stated complaint: L KNEE PAIN,SURG 1 MONTH AGO PER EMS <BRE Singh Last Filed: 09/05/21 18:23> Time Seen by Provider: 09/05/21 13:52 <BRE Singh Last Filed: 09/05/21 18:23> Source: patient and EMS <BRE Singh Last Filed: 09/05/21 18:23> Mode of arrival: EMS <BRE Singh Last Filed: 09/05/21 18:23> Limitations: no limitations <BRE Singh Last Filed: 09/05/21 18:23> History of Present Illness HPI Narrative: 65-year-old female with a PMHX of Anxiety, bipolar 1 disorder who has had ECT therapy in the past, GERD, insomnia, osteopenia /osteoarthritis, cardiac murmur who recently underwent a successful left total knee arthroplasty on 08/09/[address] Hudson was sent to rehab and discharge home and was recently seen on 08/25/2021 by the orthopedic PA Imani who took off her stitches and placed Steri-Strips presenting to the ED via EMS with complaints of persistent pain since the surgery on 08/09/2021. She believes that her pain is not controlled with the pain meds that she has at home she reports she is currently on 5 mg of oxycodone. Reports she is taking as prescribed. She reports that she is currently on a 325 mg aspirin otherwise not on any other blood thinners. She denies any fevers, chills, dizziness, headaches, neck pain /stiffness, trouble swallowing or breathing, chest pain or shortness of breath, dyspnea on exertion, orthopnea, palpitations, lower extremity edema or calf tenderness or any other symptoms complaints or concerns at this time. <BRE Singh Last Filed: 09/05/21 18:23> MD Complaint: other ( Joint pain to the left knee since surgery on 08/09/2021 has been persistent unchanged) <BRE Singh Last Filed: 09/05/21 18:23> Onset (ago): month(s) (1) <BRE Singh - Last Filed: 09/05/21 18:23> Pain Consistency: constant <BRE Singh - Last Filed: 09/05/21 18:23> Location: left and knee <BRE Singh - Last Filed: 09/05/21 18:23> Severity scale (1-10): >10 <BRE Singh - Last Filed: 09/05/21 18:23> Quality: aching and constant <BRE Singh - Last Filed: 09/05/21 18:23> Radiation: none <BRE Singh - Last Filed: 09/05/21 18:23> Relieving factors: nothing <BRE Singh - Last Filed: 09/05/21 18:23> Exacerbating factors: range of motion, weight bearing, walking and palpation <BRE Singh - Last Filed: 09/05/21 18:23> Associated symptoms: denies other symptoms <BRE Singh - Last Filed: 09/05/21 18:23> Context: recent surgery/procedure ( see above) <BRE Singh - Last Filed: 09/05/21 18:23> Related Data Home medications: Home Medications Medication Instructions Recorded Confirmed omeprazole 20 mg capsule,delayed 20 mg PO BID 05/09/21 09/05/21 release biotin 5,000 mcg sublingual tablet 5,000 mcg SUBLINGUAL DAILY 07/21/21 09/05/21 calcium carbonate 600 mg-vitamin 1 tab PO DAILY #0 07/21/21 09/05/21 D3 5 mcg (200 unit) tablet docusate sodium 100 mg capsule 1 cap PO BID 07/21/21 09/05/21 fluticasone propionate 50 1 spray INTRANASAL DAILY PRN 07/21/21 09/05/21 mcg/actuation nasal spray,suspension gabapentin 400 mg capsule 800 mg PO BEDTIME 07/21/21 09/05/21 loratadine 10 mg tablet (Claritin) 10 mg PO DAILY PRN 07/21/21 09/05/21 melatonin 5 mg tablet 10 mg PO BEDTIME 07/21/21 09/05/21 multivitamin 1 tab PO DAILY 07/21/21 09/05/21 quetiapine 400 mg tablet 800 mg PO BEDTIME 07/21/21 09/05/21 lactulose 10 gram/15 mL oral 15 ml PO BID PRN 09/05/21 09/05/21 solution lorazepam 0.5 mg tablet 1 tab PO BEDTIME PRN 09/05/21 09/05/21 quetiapine 100 mg tablet 50 - 100 mg PO BEDTIME PRN 09/05/21 09/05/21 Previous Rx's Medication Instructions Recorded oxycodone 10 mg tablet 10 mg PO Q4H PRN 7 Days #42 tab 08/23/21 <BRE Singh - Last Filed: 09/05/21 18:23> Allergies/Adverse reactions: Allergies Allergy/AdvReac Type Severity Reaction Status Date / Time bee pollen Allergy Severe Anaphylaxis Verified 08/25/21 12:46 levofloxacin [From Levaquin] Allergy Severe Itching Verified 08/25/21 12:46 Penicillins Allergy Unknown Unknown Verified 08/25/21 12:46 <BRE Singh - Last Filed: 09/05/21 18:23> Review of Systems Review of Systems: Constitutional : No Weight loss, No Fever, No Chills, No Night Sweats, No Fatigue, No Malaise ENT/Mouth : No Hearing loss, No Ear Pain, No Nasal Congestion, No Sinus Pain, No Hoarseness, No sore throat, No Rhinorrhea, No Swallowing Difficulty Eyes: No Eye Pain, No Swelling, No Redness, No Foreign Body, No Discharge, No Vision Changes Cardiovascular : No Chest Pain, No SOB, No Dyspnea on Exertion, No Orthopnea, No Edema, No Palpitations Respiratory : No Cough, No Sputum, No Wheezing, No Smoke Exposure, No Dyspnea Gastrointestinal : No Nausea, No Vomiting, No Diarrhea, No Constipation, No abdominal Pain, No Hematochezia, No Melena Genitourinary : no irregular bleeding, No Dysuria, No Urinary Frequency, No Hematuria, No Urinary Incontinence, No Urgency, No Flank Pain, No Urinary Flow Changes, No Hesitancy Musculoskeletal : + left knee joint pain, No Myalgias, No Joint Swelling Skin : No Skin Lesions, No rash Neuro : No Weakness, No Numbness, No Paresthesias, No Loss of Consciousness, No Dizziness, No Headache Psych : No Anxiety/Panic, No Depression, No SI/HI/AH/VH, No Social Issues, Heme/Lymph: No Bruising, No Bleeding,No Lymphadenopathy Endocrine : No Polyuria, No Polydipsia, No Temperature Intolerance <BRE Singh - Last Filed: 09/05/21 18:23> Yes all other systems are reviewed and are negative <BRE Singh - Last Filed: 09/05/21 18:23> [facility] Past Medical History Attestation statement: The following information was validated with the patient. <BRE Singh - Last Filed: 09/05/21 18:23> Medical History: Medical History Anxiety Bipolar 1 disorder Constipation GERD (gastroesophageal reflux disease) History of electroconvulsive therapy Hx of skin cancer, basal cell Hx of thyroid nodule Insomnia Murmur, cardiac Osteopenia Seasonal allergies <BRE Singh - Last Filed: 09/05/21 18:23> Surgical History: Surgical History H/O elbow surgery History of back surgery Hx of colonoscopy <BRE Singh - Last Filed: 09/05/21 18:23> Social History Social History: Social History Are you a primary health care facilities inspector to a significant other at home: No Do you presently have visiting nurse or other home services: Yes ([employer] 3 hours once a week) Patient Tobacco Use Status: Former Tobacco user Quit Date: 06/20/2021 cigarettes Tobacco use type: Cigarette Years Smoked: 30+, now vapes Advance Directives: No Advance Directives Information Provided: Yes Patient : No service: No Current occupational status: unemployed and retired 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 <BRE Singh - Last Filed: 09/05/21 18:23> Physical Exam Vital Signs: Vital Signs: Last Vital Signs Temp 97.4 F 09/06/21 01:58 Pulse 102 H 09/06/21 07:44 Resp 16 09/06/21 01:58 BP 116/75 09/06/21 07:44 Pulse Ox 97 09/06/21 07:44 BMI result Body Mass Index 25.4 vital signs have been reviewed as normal and appeared to be correct. Blood pressure normal. Heart rate normal. Respiration rate normal. Temperature normal. Oxygen saturation normal. <BRE Singh - Last Filed: 09/05/21 18:23> Vital Signs: Last Vital Signs Temp 97.4 F 09/06/21 01:58 Pulse 102 H 09/06/21 07:44 Resp 16 09/06/21 01:58 BP 116/75 09/06/21 07:44 Pulse Ox 97 09/06/21 07:44 BMI result Body Mass Index 25.4 <BRE Smart - Last Filed: 09/06/21 08:52> Appearance: Alert. Oriented X3. No acute distress. Head: Normal external exam. Normocephalic. Atraumatic. Eyes: PERRLA. EOMI. Conjunctiva and sclera normal. Eyelids normal. ENT: Pharynx normal. Uvula midline. Moist mucous membranes. Normal voice. Neck: Normal inspection. Neck supple. FROM. No adenopathy. Thyroid Normal. No meningeal signs. No neck mass noted. CVS: Normal heart rate and rhythm. Heart sound normal. Pulses normal throughout. No murmurs/rales/gallops. Respiratory: No respiratory distress. Painless inspiration. Breath sounds normal. No wheezes/rales/rhonchi noted. Chest nontender. No crepitus is noted. No signs of trauma noted. No accessory muscle usage noted or decreased air movement noted. No signs of trauma. Back: Full range of motion noted.Patient neuro intact bilaterally and distally on all 4 extremities. Patient's reflexes intact bilaterally and distally on all 4 extremities. No rashes/lesion/induration/fluctuance or signs of infection noted. Skin: Skin warm and dry. Normal skin color. Normal skin turgor. No rashes/lesions/lacerations noted. Extremities: To the left knee patient has full range of motion there is a scar that appears well healing no signs of infection. No drainage. No fluctuance noted. No streaking. No induration noted. No foreign bodies noted. No obvious ligamentous or tendon injury. Otherwise no lower extremity edema or calf tenderness noted. Otherwise all other Extremities exhibit normal range of motion and nontender. Neuro: Oriented X 3. No motor deficit. No sensory deficit. Reflexes normal. Normal steady gait. No focal neuro deficits noted. CN's II-XII intact bilaterally? Vascular: + radial pulses/+ 2 distal pedal pulses/+2 dorsalis pedis b/l. Normal cap refill. No cyanosis noted to upper extremity nails and lower extremity toes nails. <BRE Singh - Last Filed: 09/05/21 18:23> Course Course Course Narrative: 2pm - 65-year-old female with a PMHX of Anxiety, bipolar 1 disorder who has had ECT therapy in the past, GERD, insomnia, osteopenia /osteoarthritis, cardiac murmur who recently underwent a successful left total knee arthroplasty on 08/09/[address] Hudson was sent to rehab and discharge home and was recently seen on 08/25/2021 by the orthopedic PA Imani who took off her stitches and placed Steri-Strips presenting to the ED via EMS with complaints of persistent pain since the surgery on 08/09/2021. She believes that her pain is not controlled with the pain meds that she has at home she reports she is currently on 5 mg of oxycodone. Reports she is taking as prescribed. She reports that she is currently on a 325 mg aspirin otherwise not on any other blood thinners. She denies any fevers, chills, dizziness, headaches, neck pain /stiffness, trouble swallowing or breathing, chest pain or shortness of breath, dyspnea on exertion, orthopnea, palpitations, lower extremity edema or calf tenderness or any other symptoms complaints or concerns at this time. On exam she has full range of motion. She did not have any tenderness on my exam. There is no erythema. There is no drainage. There is no fluctuance. There is no streaking. There is no lower extremity edema or calf tenderness. Therefore at this time will obtain an x-ray and an ultrasound to rule out any abnormalities then re-evaluate. <BRE Singh - Last Filed: 09/05/21 18:23> Reevaluation(s) Reevaluation #1: - ultrasound positive for acute DVT in the left posterior tibial vein. Therefore I discussed this with the patient and she reported that she does not feel like she can go home due to she is not ready and cannot take care of herself therefore she is requesting to go to a short-term rehab. I explained to her that we will get basic labs and we will start her on Eliquis and we will keep her here for a physical therapy evaluation for possible short-term rehab placement with case management. - I also consulted with Dr. Basurto the vascular surgeon he reported that the patient can be started on Eliquis. - Therefore patient will be started on Eliquis and she will be awaiting PT / case management consult. Will continue to monitor. <BRE Singh - Last Filed: 09/05/21 18:23> Time: 15:15 <BRE Singh - Last Filed: 09/05/21 18:23> Reevaluation #2: - Labs reviewed and patient's alkaline phosphate 128. Otherwise all other labs are within normal limits. Patient negative for COVID. - Therefore patient placed in physician observation because the patient needs more time to be evaluated by Physical therapy to evaluate the possible need for short-term rehab placement with case management. At this time patient remains alert and oriented x3. No focal neural deficits are noted. Lungs clear to auscultation. CV RRR. Abdomen is soft nontender. - I placed a order for the patient's oxycodone every 6 hours. I also placed the patient on Eliquis 10 mg b.i.d. for 7 days. Then I placed an order for Eliquis 5 mg b.i.d. after the 7 days depending on how long the patient will be here. <BRE Singh - Last Filed: 09/05/21 18:23> Time: 17:09 <BRE Singh - Last Filed: 09/05/21 18:23> Reevaluation #3: Patient not in any distress. patient is awaiting pt management for possible placement. physician observation continueud <BRE Smart - Last Filed: 09/06/21 08:52> Time: 20:48 <BRE Smart - Last Filed: 09/06/21 08:52> MDM - Extremity (Nontraumatic) Medical Records Attestation: I reviewed the patient's medical records. <BRE Singh - Last Filed: 09/05/21 18:23> Lab Data Attestation: I reviewed the patient's lab results. <BRE Singh - Last Filed: 09/05/21 18:23> Result diagrams: : 09/05/21 15:46 09/05/21 15:46 <BRE Singh - Last Filed: 09/05/21 18:23> Labs: Lab Results 09/05/21 09/05/21 09/05/21 Range/Units 15:46 15:46 16:34 WBC 7.2 (4.8-10.8) X10*3/uL RBC 4.13 L D (4.20-5.50) X10*6/uL Hgb 12.5 D (12.0-16.0) g/dl Hct 36.9 L D (37.0-47.0) % MCV 89.3 (80.0-98.0) fL MCH 30.3 (27.0-33.0) pg MCHC 33.9 (31.0-35.0) g/dl RDW 13.0 (11.0-16.0) % Plt Count 257 D (160-400) X10*3/uL MPV 8.7 L (9.4-12.3) fL Immature Gran % (Auto) 0.4 (0.0-0.4) % Neut % (Auto) 70.7 (45-73) % Lymph % (Auto) 20.5 (20-40) % Robeson % (Auto) 7.4 (2-11) % Eos % (Auto) 0.6 (0-4) % Baso % (Auto) 0.4 (0-2) % Lymph # (Auto) 1.5 (1.2-4.9) X10*3/uL Robeson # (Auto) 0.5 (0.1-1.2) X10*3/uL Eos # (Auto) 0.0 (0.0-0.4) X10*3/uL Baso # (Auto) 0.0 (0.0-0.2) X10*3/uL Abs Immat Gran (auto) 0.03 (0.00-0.03) X10*3/uL Absolute Neuts (auto) 5.1 (2.0-8.3) x10*3/uL Absolute Nucleated RBC 0.000 (0.0-0.012) X10*3/uL Nucleated RBC % (auto) 0.0 (0.0-0.2) /100WBC PT INR Sodium 138 (135-145) mmol/L Potassium 3.9 (3.3-5.1) mmol/L Chloride 107 (96-108) mmol/L Carbon Dioxide 25 (22-29) mmol/L Anion Gap 10 L (12-20) BUN 16 (9-16) mg/dL Creatinine 0.72 (0.5-1.4) mg/dL Estim Creat Clear Calc 81.1 Estimated GFR > 60 Random Glucose 113 (60-115) mg/dL Calcium 9.5 D (8.4-10.2) mg/dL Total Bilirubin 0.3 (0.0-1.0) mg/dL AST 18 (5-31) U/L ALT 10 (0-31) U/L Alkaline Phosphatase 128 H (39-117) U/L Total Protein 7.1 (6.5-8.0) g/dL Albumin 4.0 (3.5-5.0) g/dL COVID-19 ([facility]ANNE) Negative (Negative) COVID-19 Clin Com See Note 09/05/21 Range/Units Unknown WBC (4.8-10.8) X10*3/uL RBC (4.20-5.50) X10*6/uL Hgb (12.0-16.0) g/dl Hct (37.0-47.0) % MCV (80.0-98.0) fL MCH (27.0-33.0) pg MCHC (31.0-35.0) g/dl RDW (11.0-16.0) % Plt Count (160-400) X10*3/uL MPV (9.4-12.3) fL Immature Gran % (Auto) (0.0-0.4) % Neut % (Auto) (45-73) % Lymph % (Auto) (20-40) % Robeson % (Auto) (2-11) % Eos % (Auto) (0-4) % Baso % (Auto) (0-2) % Lymph # (Auto) (1.2-4.9) X10*3/uL Robeson # (Auto) (0.1-1.2) X10*3/uL Eos # (Auto) (0.0-0.4) X10*3/uL Baso # (Auto) (0.0-0.2) X10*3/uL Abs Immat Gran (auto) (0.00-0.03) X10*3/uL Absolute Neuts (auto) (2.0-8.3) x10*3/uL Absolute Nucleated RBC (0.0-0.012) X10*3/uL Nucleated RBC % (auto) (0.0-0.2) /100WBC PT Cancelled INR Cancelled Sodium (135-145) mmol/L Potassium (3.3-5.1) mmol/L Chloride (96-108) mmol/L Carbon Dioxide (22-29) mmol/L Anion Gap (12-20) BUN (9-16) mg/dL Creatinine (0.5-1.4) mg/dL Estim Creat Clear Calc Estimated GFR Random Glucose (60-115) mg/dL Calcium (8.4-10.2) mg/dL Total Bilirubin (0.0-1.0) mg/dL AST (5-31) U/L ALT (0-31) U/L Alkaline Phosphatase (39-117) U/L Total Protein (6.5-8.0) g/dL Albumin (3.5-5.0) g/dL COVID-19 ([facility]ANNE) (Negative) COVID-19 Clin Com <BRE Singh - Last Filed: 09/05/21 18:23> Lab Results 09/05/21 09/05/21 09/05/21 Range/Units 15:46 15:46 16:34 WBC 7.2 (4.8-10.8) X10*3/uL RBC 4.13 L D (4.20-5.50) X10*6/uL Hgb 12.5 D (12.0-16.0) g/dl Hct 36.9 L D (37.0-47.0) % MCV 89.3 (80.0-98.0) fL MCH 30.3 (27.0-33.0) pg MCHC 33.9 (31.0-35.0) g/dl RDW 13.0 (11.0-16.0) % Plt Count 257 D (160-400) X10*3/uL MPV 8.7 L (9.4-12.3) fL Immature Gran % (Auto) 0.4 (0.0-0.4) % Neut % (Auto) 70.7 (45-73) % Lymph % (Auto) 20.5 (20-40) % Robeson % (Auto) 7.4 (2-11) % Eos % (Auto) 0.6 (0-4) % Baso % (Auto) 0.4 (0-2) % Lymph # (Auto) 1.5 (1.2-4.9) X10*3/uL Robeson # (Auto) 0.5 (0.1-1.2) X10*3/uL Eos # (Auto) 0.0 (0.0-0.4) X10*3/uL Baso # (Auto) 0.0 (0.0-0.2) X10*3/uL Abs Immat Gran (auto) 0.03 (0.00-0.03) X10*3/uL Absolute Neuts (auto) 5.1 (2.0-8.3) x10*3/uL Absolute Nucleated RBC 0.000 (0.0-0.012) X10*3/uL Nucleated RBC % (auto) 0.0 (0.0-0.2) /100WBC PT INR Sodium 138 (135-145) mmol/L Potassium 3.9 (3.3-5.1) mmol/L Chloride 107 (96-108) mmol/L Carbon Dioxide 25 (22-29) mmol/L Anion Gap 10 L (12-20) BUN 16 (9-16) mg/dL Creatinine 0.72 (0.5-1.4) mg/dL Estim Creat Clear Calc 81.1 Estimated GFR > 60 Random Glucose 113 (60-115) mg/dL Calcium 9.5 D (8.4-10.2) mg/dL Total Bilirubin 0.3 (0.0-1.0) mg/dL AST 18 (5-31) U/L ALT 10 (0-31) U/L Alkaline Phosphatase 128 H (39-117) U/L Total Protein 7.1 (6.5-8.0) g/dL Albumin 4.0 (3.5-5.0) g/dL COVID-19 ([facility]ANNE) Negative (Negative) COVID-19 Clin Com See Note 09/05/21 Range/Units Unknown WBC (4.8-10.8) X10*3/uL RBC (4.20-5.50) X10*6/uL Hgb (12.0-16.0) g/dl Hct (37.0-47.0) % MCV (80.0-98.0) fL MCH (27.0-33.0) pg MCHC (31.0-35.0) g/dl RDW (11.0-16.0) % Plt Count (160-400) X10*3/uL MPV (9.4-12.3) fL Immature Gran % (Auto) (0.0-0.4) % Neut % (Auto) (45-73) % Lymph % (Auto) (20-40) % Robeson % (Auto) (2-11) % Eos % (Auto) (0-4) % Baso % (Auto) (0-2) % Lymph # (Auto) (1.2-4.9) X10*3/uL Robeson # (Auto) (0.1-1.2) X10*3/uL Eos # (Auto) (0.0-0.4) X10*3/uL Baso # (Auto) (0.0-0.2) X10*3/uL Abs Immat Gran (auto) (0.00-0.03) X10*3/uL Absolute Neuts (auto) (2.0-8.3) x10*3/uL Absolute Nucleated RBC (0.0-0.012) X10*3/uL Nucleated RBC % (auto) (0.0-0.2) /100WBC PT Cancelled INR Cancelled Sodium (135-145) mmol/L Potassium (3.3-5.1) mmol/L Chloride (96-108) mmol/L Carbon Dioxide (22-29) mmol/L Anion Gap (12-20) BUN (9-16) mg/dL Creatinine (0.5-1.4) mg/dL Estim Creat Clear Calc Estimated GFR Random Glucose (60-115) mg/dL Calcium (8.4-10.2) mg/dL Total Bilirubin (0.0-1.0) mg/dL AST (5-31) U/L ALT (0-31) U/L Alkaline Phosphatase (39-117) U/L Total Protein (6.5-8.0) g/dL Albumin (3.5-5.0) g/dL COVID-19 ([facility]ANNE) (Negative) COVID-19 Clin Com <BRE Smart - Last Filed: 09/06/21 08:52> Imaging Data left knee x-ray: Attestation: I personally reviewed and interpreted this imaging study as follows: <BRE Singh - Last Filed: 09/05/21 18:23> Radiologist's impression: FINDINGS: Prosthetic components of the left total knee arthroplasty are appropriately aligned without periprosthetic fracture or abnormal lucency. No component migration. Small joint effusion.? XR/XR knee LT 4V IMPRESSION: Appropriate alignment of the left total knee arthroplasty without evidence of complications. Small joint effusion. <BRE Singh - Last Filed: 09/05/21 18:23> Venous duplex ultrasound of left lower extremity: Attestation: I personally reviewed and interpreted this imaging study as follows: <BRE Singh - Last Filed: 09/05/21 18:23> Radiologist's impression: FINDINGS: The posterior tibial vein is expanded, noncompressible, and lacks color-flow in the mid calf. This is consistent with an acute DVT. The common femoral vein, femoral vein, profunda femoral vein, popliteal vein, and peroneal vein are patent, compressible, and have normal color flow and augmentation. US/US venous duplex LE LT IMPRESSION: Acute DVT in the left posterior tibial vein. ? This critical result was discussed with BRE Singh at 1500 on 09/05/2021 and it was ascertained that the content and urgency of the report was understood at the time of direct communication. ? <BRE Singh Last Filed: 09/05/21 18:23> Critical Care Time Critical Care Time Critical Care Time: Yes <BRE Singh Last Filed: 09/05/21 18:23> Total Critical Care Time: 60 <BRE Singh - Last Filed: 09/05/21 18:23> Attestation: I personally attest to this time spent taking care of the patient <BRE Signh - Last Filed: 09/05/21 18:23> Discharge Plan Discharge Clinical Impression: Acute deep vein thrombosis (DVT) of left tibial vein <BRE Singh - Last Filed: 09/05/21 18:23> Patient Disposition: Still a Patient <BRE Singh - Last Filed: 09/05/21 18:23> Prescriptions: No Action oxycodone 10 mg tablet 10 mg PO Q4H PRN (Reason: Pain, Moderate (Pain Scale 4-6) 7 Days Qty: 42 0RF quetiapine 400 mg tablet 800 mg PO BEDTIME 0RF melatonin 5 mg tablet 10 mg PO BEDTIME 0RF gabapentin 400 mg capsule 800 mg PO BEDTIME 0RF docusate sodium 100 mg capsule 1 cap PO BID 0RF multivitamin Tablet 1 tab PO DAILY 0RF calcium carbonate-vitamin D3 [Calcium + D] 600 mg-5 mcg (200 unit) Tablet 1 tab PO DAILY Qty: 0 0RF biotin 5,000 mcg Tablet, Sublingual 5,000 mcg SUBLINGUAL DAILY 0RF loratadine [Claritin] 10 mg Tablet 10 mg PO DAILY PRN (Reason: Allergy Symptoms) 0RF fluticasone propionate 50 mcg/actuation spray,suspension 1 spray intranasal DAILY PRN (Reason: Allergy Symptoms) 0RF quetiapine 100 mg tablet 50 - 100 mg PO BEDTIME PRN (Reason: Insomnia) 0RF Rx Instructions: IN ADDITION TO 800MG BEDTIME DOSE lorazepam 0.5 mg tablet 1 tab PO BEDTIME PRN (Reason: insomnia) 0RF lactulose 10 gram/15 mL solution 15 ml PO BID PRN (Reason: constipation) 0RF omeprazole 20 mg capsule,delayed release(DR/EC) 20 mg PO BID 0RF <BRE Singh Last Filed: 09/05/21 18:23>
[2021-09-05 15:53] LABS: MANUAL DIFF FLAG NO
[2021-09-05 15:57] LABS: Basophils Percent Auto 0.4 % (0-2); Eosinophils Percent Auto 0.6 % (0-4); Hematocrit 36.9 % (37.0-47.0); Hemoglobin 12.5 g/dl (12.0-16.0); Imm Gran Abs Auto 0.03 X10*3/uL (0.00-0.03); Imm Gran Pct Auto 0.4 % (0.0-0.4); Lymphocytes Absolute Auto 1.5 X10*3/uL (1.2-4.9); Lymphocytes Percent Auto 20.5 % (20-40); Mean Corpuscular HGB Conc 33.9 g/dl (31.0-35.0); Mean Corpuscular Hemoglobin 30.3 pg (27.0-33.0); Mean Corpuscular Volume 89.3 fL (80.0-98.0); Mean Platelet Volume 8.7 fL (9.4-12.3); Monocytes Absolute Auto 0.5 X10*3/uL (0.1-1.2); Monocytes Percent Auto 7.4 % (2-11); Neutrophils Absolute Auto 5.1 x10*3/uL (2.0-8.3); Neutrophils Percent Auto 70.7 % (45-73); Platelet Count 257 X10*3/uL (160-400); Red Blood Count 4.13 X10*6/uL (4.20-5.50); White Blood Count 7.2 X10*3/uL (4.8-10.8)
[2021-09-05] MEDS: oxyCODONE HCl Immed Release 5 MG TABLET PO ×3 (16:05→22:35)
[2021-09-05 16:12] LABS: Alanine Aminotransferase 10 U/L (0-31); Alkaline Phosphatase 128 U/L (39-117); Anion Gap 10 (12-20); Aspartate Amino Transferase 18 U/L (5-31); Bilirubin Total 0.3 mg/dL (0.0-1.0); Blood Urea Nitrogen 16 mg/dL (9-16); Calcium 9.5 mg/dL (8.4-10.2); Carbon Dioxide 25 mmol/L (22-29); Chloride 107 mmol/L (96-108); Creatinine Clr Calc Pharmacy 81.1; Estimated Glomerular Filt Rate > 60; Glucose Random 113 mg/dL (60-115); Potassium 3.9 mmol/L (3.3-5.1); Sodium 138 mmol/L (135-145); Total Protein 7.1 g/dL (6.5-8.0)
[2021-09-05 16:55] LABS: COVID-19 Test Negative (Negative); IDNOW Serial# 55D5AD1C
--- NOTE | 2021-09-05 16:59 | PC.NURSE ---
Pt received: Pt AOX4 and seems very overwhelmed and depressed, due to recent L knee surgery and hx of bipolar. Heart sounds normal and lungs diminished. Pt abd soft and non-tender. L knee and lower L leg edema but with palpable pulses.
[2021-09-05] MEDS: Apixaban 5 MG TABLET 10 MG PO (17:06)
--- NOTE | 2021-09-05 19:41 | MHC.CM.ED ---
CM met with patient. Pt very concerned about knee pain and that she is bipolar. Keeps saying it's too much to have both . Pt lives alone. Has a walker, but states she cannot go from her couch to the bathroom without pain. Cannot care for herself. Pt does not use the walker at home. Pt states she doesn't have any services. With further questioning, pt tells CM she has a therapist from [facility], [place]. Pt denies having any home services. Pt has [facility] insurance. CM will need to contact [facility] in the am. Pt requests to return to [facility] for rehab. PT assessment pending. Referral placed at [facility]. CM to follow for d/c needs.
[2021-09-05 20:20] VITALS: BP 131/86; PULSE 94; RESP 18; TEMP 37.2; O2SAT 94
--- NOTE | 2021-09-05 20:27 | PC.NURSE ---
This RN to bedside to medicate pt with eliquis per MAR. Pt aaox4 with directed communication, but digresses from conversation multiple times to report unrelenting L knee pain about [phone]. This RN informs pt that this RN has eliquis for pt, pt states yeah, the blood thinner, but that doesn't help at all with the pain. I gotta be honest- it isn't helping. Pt's concerns acknowledged and this RN provides reassurance, then returns to conversation about eliquis. Pt states I'm sorry, it's hard to deal with both. Upon further clarification, pt reports she has a dx of bipolar disorder and now also struggling with L knee pain. This RN notes that pt rec'd eliquis at 1706; this RN clarifies order for additional dose at this time with juana pastry decorator who states that pt is not to receive tonight's 2100 dose. Instead, pt to begin BID scheduling of meds in AM per AUG. This RN held med, documented against it, and notified pt's primary RN Esther. This RN also relaying pt's concerns regarding ineffective pain control to Juana ALEJANDRE.
--- NOTE | 2021-09-05 21:27 | PHA.MEDREC ---
Pharmacy Consult ? Medication Reconciliation Pharmacy has completed the medication reconciliation.
[2021-09-05] MEDS: QUEtiapine Fumarate 400 MG TABLET 800 MG PO (22:35)
[2021-09-05] MEDS: Melatonin 3 MG TABLET 9 MG PO (22:35)
[2021-09-05] MEDS: Gabapentin 400 MG CAPSULE 800 MG PO (22:36)
[2021-09-05] MEDS: Docusate Sodium 100 MG CAPSULE PO (22:37)
[2021-09-06 01:58] VITALS: BP 116/75; PULSE 102; RESP 16; TEMP 36.3; O2SAT 97
[2021-09-06] MEDS: Omeprazole 20 MG CAPSULE.DR PO (06:35)
[2021-09-06 07:44] VITALS: BP 116/75; PULSE 102; O2SAT 97
--- NOTE | 2021-09-06 08:47 | MHC.CM.ED ---
Patient remains in ER. Physical therapy eval completed. Short term rehab is recommended. Patient received 3 Moderna vaccines. Last ECT was approximately 13 years ago. Patient does not receive any home behavioral services. [facility] is first choice. Clinical updates sent via [employer]. Continue to monitor for d/c needs.
--- NOTE | 2021-09-06 09:39 | MHC.CM.ED ---
Patient remains in ER. Physical therapy eval completed. Short term rehab is recommended. Clinical updates sent via [employer] to [facility] G Frank [facility]. Maria G Frank is in the process of obtaining ins auth. Continue to monitor for d/c needs.
[2021-09-06] MEDS: oxyCODONE HCl ER 10 MG TAB.ER.12H PO (11:12)
[2021-09-06] MEDS: Docusate Sodium 100 MG CAPSULE PO (11:12)
[2021-09-06] MEDS: Multivitamin TABLET 1 TAB PO (11:13)
[2021-09-06] MEDS: Calcium + Vitamin D 250 MG TABLET 500 MG PO (11:13)
[2021-09-06] MEDS: Apixaban 5 MG TABLET 10 MG PO (11:14)
[2021-09-06] MEDS: oxyCODONE HCl Immed Release 5 MG TABLET PO (13:50)
[2021-09-06 13:55] VITALS: BP 147/88; PULSE 107; RESP 16
--- NOTE | 2021-09-06 14:13 | MHC.CM.ED ---
Insurance auth has been obtained by Maria G Fernandes. Patient can leave at 330pm. Action BLS booked. Med nec with chart. Patient, Pankaj CONDON and Arvind DÍAZ aware. Continue to monitor for d/c needs.
== END 2021-09-06 15:45 | disposition skilled nursing facility (03) ==
PROVIDERS: Physician Assistant Medical; Emergency Provider Emergency Medicine; PCP Family Medicine
DX: I82.442 Acute embolism and thrombosis of left tibial vein (principal); M25.562 Pain in left knee; Z96.652 Presence of left artificial knee joint; Z20.822 Contact with and (suspected) exposure to COVID-19
CPT/HCPCS: 36415; 73564; 80053; 85025; 87635; 93971; 97162; 99284; 99285; 99291

== ENCOUNTER 2021-09-08 12:00 | Inpatient (IN) | payer OTHER, SELFPAY ==
--- NOTE | ~2021-09-08 | CT_ITS ---
EXAMINATION: CT HEAD WITHOUT CONTRAST CLINICAL INFORMATION: Altered mental status COMPARISON: None TECHNIQUE: Contiguous axial imaging was performed from the skull base to vertex without intravenous administration of contrast. This CT examination was performed using dose optimization techniques as appropriate, variously including the following: *Automated exposure control *Adjustment of mA and/or kV according to patient size (this includes techniques or standardized protocols for targeted exams where dose is matched to indication/reason for exam; i.e. extremities or head) *Use of iterative reconstruction technique DLP: 674 mGy-cm FINDINGS: There is no evidence of acute intracranial hemorrhage or territorial infarction. No abnormal mass effect or midline shift is seen. Blunt to white matter differentiation is well preserved. No extra-axial fluid collections are identified. The ventricles are normal in size. There is no abnormal attenuation within the brain parenchyma. The osseous structures and soft tissues are normal. There is a high right jugular bulb. The mastoid air cells and visualized portions of the paranasal sinuses are well aerated. CT/CT head/brain wo con IMPRESSION: No acute intracranial findings.
--- NOTE | ~2021-09-08 | NM_ITS ---
Exercise Myocardial perfusion study Indication: Chest tightness to evaluate for myocardial ischemia Technique: The patient was brought in for an exercise perfusion study on 10/21/2021. Patient performed exercise as per Apolinar protocol and was injected 25 mCi of sestamibi was given intravenously one target HR was achieved. Images were obtained using the SPECT gamma camera interlaced with the gating device. Images were obtained in supine position. Resting perfusion study was performed on 10/20/2021. Patient was administered 25 mCi of sestamibi intravenously at rest. Images were then obtained in supine position. Images were obtained with and without CT attenuation. Total DLP 89 mGy-cm. Images were processed with the software and compared side to side in short axis, horizontal long axis and vertical long axis views. Findings: The stress perfusion study showed non attenuated images show small area of mildly reduced uptake in the apex of the LV myocardium. Attenuation corrected images also show mildly reduced uptake in the apex of the LV myocardium.. The gated study shows normal LV systolic function with calculated LVEF of 68%. LV cavity is normal in size. The gated study shows normal systolic wall thickening and contraction of all segments. There is no transient ischemic dilation. Resting study shows both attenuated as well as non attenuated images show improved uptake in the apex of the LV myocardium. Gating at rest reveals normal systolic wall motion with ejection fraction at 74%. The findings are consistent with small area of mild intensity reversible defect of the apex. NM/NM arianna perf SPECT rest & str Impression: 1. Small area of mild intensity apical ischemia 2. Gated LVEF is 68% 3. Transient ischemic dilatation not present Stress EKG is negative for ischemia
[2021-09-08 12:09] VITALS: BP 148/88; PULSE 104; O2SAT 97
--- NOTE | 2021-09-08 12:31 | ED.PSYCH ---
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 Patient tells me she was discharged yesterday from a fdc facility however patient arrives from [facility] with EMS She believe she may not have been getting all of her psychiatric medications at their normal dosage while she has been there for the last week. She tells me today she got into a verbal altercation with her brother which caused further flashbacks and racing thoughts. Ambulance was called and she was transferred here. Patient is quite vague and it is difficult to obtain much of a history from her. She does report she feels anxious, depressed, poor appetite and not sleeping well with racing thoughts and flashbacks. Patient denies suicidal thoughts. No homicidal ideations. States I just don't feel right and need to talk to someone. Related Data Home Medications Medication Instructions Recorded Confirmed omeprazole 20 mg capsule,delayed 20 mg PO BID 05/09/21 09/08/21 release biotin 5,000 mcg sublingual tablet 5,000 mcg SUBLINGUAL DAILY 07/21/21 09/08/21 calcium carbonate 600 mg-vitamin 1 tab PO DAILY #0 07/21/21 09/08/21 D3 5 mcg (200 unit) tablet docusate sodium 100 mg capsule 1 cap PO BID 07/21/21 09/08/21 fluticasone propionate 50 1 spray INTRANASAL DAILY PRN 07/21/21 09/08/21 mcg/actuation nasal spray,suspension gabapentin 400 mg capsule 800 mg PO BEDTIME 07/21/21 09/08/21 loratadine 10 mg tablet (Claritin) 10 mg PO DAILY PRN 07/21/21 09/08/21 melatonin 5 mg tablet 10 mg PO BEDTIME 07/21/21 09/08/21 multivitamin 1 tab PO DAILY 07/21/21 09/08/21 quetiapine 400 mg tablet 800 mg PO BEDTIME 07/21/21 09/08/21 lactulose 10 gram/15 mL oral 15 ml PO BID PRN 09/05/21 09/08/21 solution lorazepam 0.5 mg tablet 1 tab PO BEDTIME PRN 09/05/21 09/08/21 quetiapine 100 mg tablet 100 mg PO BEDTIME PRN 09/05/21 09/08/21 acetaminophen 325 mg tablet 650 mg PO Q6H PRN 09/08/21 09/08/21 apixaban 5 mg (74 tabs) tablets in 10 mg PO BID 09/08/21 09/08/21 a dose pack (Eliquis DVT-PE Treat 30D Start) apixaban 5 mg tablet 5 mg PO BID 09/08/21 09/08/21 lorazepam 0.5 mg tablet (Ativan) 0.5 mg PO Q6H PRN 09/08/21 09/08/21 oxycodone 10 mg tablet,crush 10 mg PO Q12H 09/08/21 09/08/21 resistant,extended release 12 hr (OxyContin) oxycodone 5 mg tablet 5 mg PO Q4H PRN 09/08/21 09/08/21 Allergies Allergy/AdvReac Type Severity Reaction Status Date / Time bee pollen Allergy Severe Anaphylaxis Verified 08/25/21 12:46 levofloxacin [From Levaquin] Allergy Severe Itching Verified 08/25/21 12:46 Penicillins Allergy Unknown Unknown Verified 08/25/21 12:46 Review of Systems Review of Systems: Yes all other systems are reviewed and are negative Constitutional: Constitutional: Reports no additional constitutional complaints, Denies body ache(s), Denies chills, Reports difficulty sleeping, Denies fever(s), Denies headache(s), Reports poor appetite and Denies weakness Eyes: Eyes: Reports no additional eye complaints and Denies change in vision ENT: Reports system reviewed and no additional complaints, except as documented, Denies dizziness, Denies headache(s), Denies nasal congestion, Denies nasal discharge and Denies neck pain Cardiovascular: Cardiovascular: Reports no additional cardiovascular complaints, Denies chest pain, Denies leg edema and Denies dyspnea Respiratory: Respiratory: Reports no additional respiratory complaints, Denies cough and Denies dyspnea Gastrointestinal: Gastrointestinal: Reports no additional gastrointestinal complaints, Denies abdominal pain, Denies diarrhea, Denies nausea and Denies vomiting Genitourinary: Genitourinary: Reports no additional female genitourinary complaints and Denies urinary incontinence Musculoskeletal: Musculoskeletal: Reports no additional musculoskeletal complaints, Denies back pain, Denies arthralgias, Denies joint swelling, Denies neck pain, Denies numbness and Denies tingling Integumentary/Breasts: Skin/Breast: Reports system reviewed and no additional complaints, except as docu and Denies rash Neurologic: Reports system reviewed and no additional complaints, except as documented, Denies Abnormal speech present, Denies dizziness, Denies headache(s), Denies numbness, Denies tingling and Denies weakness Psychiatric: Psychiatric: Reports anxiety, Reports depression, Denies visual hallucinations, Denies hallucinations, Denies homicidal ideation and Denies suicidal ideation [facility] Past Medical History Attestation statement: The following information was validated with the patient. Source: old records reviewed and nursing notes reviewed Medical History Anxiety Bipolar 1 disorder Constipation GERD (gastroesophageal reflux disease) History of electroconvulsive therapy Hx of skin cancer, basal cell Hx of thyroid nodule Insomnia Murmur, cardiac Osteopenia Seasonal allergies Surgical History H/O elbow surgery History of back surgery Hx of colonoscopy Social History Social History Are you a primary youth care specialist to a significant other at home: No Do you presently have visiting nurse or other home services: Yes ([employer] 3 hours once a week) Patient Tobacco Use Status: Former Tobacco user Quit Date: 06/20/2021 cigarettes Tobacco use type: Cigarette Years Smoked: 30+, now vapes Advance Directives: No Advance Directives Information Provided: Yes Healthcare Proxy: No Guardian: No service: No Current occupational status: unemployed and retired 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 Physical Exam Vital Signs: Vital Signs: Last Vital Signs Temp 98.8 F 09/08/21 14:00 Pulse 104 H 09/08/21 14:00 Resp 16 09/08/21 14:00 BP 143/94 H 09/08/21 14:00 Pulse Ox 97 09/08/21 14:00 BMI result Body Mass Index 25.4 Const: General: cooperative, healthy appearing, comfortable and no acute distress Orientation/consciousness: patient oriented x3 Limitations: no limitations HENMT: Head: Yes normal to inspection Ears: hearing grossly normal bilaterally and TM's normal bilaterally General nose exam: Normal external nose present Face and sinus: Yes normal facial exam Mouth: Normal oral and palatal mucosa present Throat: Yes posterior oropharynx normal, Yes tonsils normal and Yes uvula midline Eyes: General: appearance normal, both eyes and all related structures Pupils: Equal, round and reactive pupils present Neck: Neck: Yes normal visual inspection, Yes full ROM, Yes no lymphadenopathy and Yes no meningeal signs Chest: Chest palpation & inspection: normal inspection of the chest Resp: Effort & Inspection: normal respiratory effort Auscultation: clear to auscultation bilaterally Cardio: Rate: regular rate Rhythm: regular rhythm Peripheral pulses: Peripheral pulses 2+ throughout GI: Inspection: Yes normal to inspection Palpation (GI): Soft to palpation and nontender Auscultation: normal bowel sounds Back/Spine/Pelvis: Thoracic/Lumbar Spine: thoracic and lumbar spine normal to inspection Skin: General skin exam: no rashes or lesions noted Neuro: General: patient oriented x3, no meningeal signs, no focal motor deficits and normal sensation to monofilament Cranial nerves: Yes CN's II-XII intact bilaterally and Yes Equal, round and reactive pupils present Cognition (Neuro): normal cognition Speech: No Abnormal speech present Gait exam (Neuro): Normal gait present Motor exam (neuro): 5/5 motor strength present throughout Extrem: Other: Mild tenderness the left posterior calf with no appreciable swelling, warmth or redness General: Yes normal to inspection and Yes no pedal edema Course Course Course Narrative: 65-year-old female with a known history of bipolar disease coming from a fdc facility with reports of decreased sleeping, poor appetite, anxiety, depression, racing thoughts. No suicidal or homicidal ideation. Will need labs including toxicology screen, COVID screen. Patient has no physical complaints with the exception of some mild left calf pain with a known DVT on Eliquis. Once medically cleared will need crisis evaluation 1430-reviewed labs, drug screen. No concern for acute ingestion or trauma. Plan for crisis evaluation 2000-medications reconciled. Patient placed in physician observation pending disposition 2100-sign out to the night team pending disposition MDM - Psych Medical Records Attestation: I reviewed the patient's medical records. Lab Data Attestation: I reviewed the patient's lab results. Result diagrams: 09/08/21 12:52 09/08/21 12:52 Labs: Lab Results 09/08/21 09/08/21 09/08/21 Range/Units 12:52 12:52 12:52 WBC 8.9 (4.8-10.8) X10*3/uL RBC 4.18 L (4.20-5.50) X10*6/uL Hgb 12.5 (12.0-16.0) g/dl Hct 38.3 (37.0-47.0) % MCV 91.6 (80.0-98.0) fL MCH 29.9 (27.0-33.0) pg MCHC 32.6 (31.0-35.0) g/dl RDW 12.9 (11.0-16.0) % Plt Count 249 (160-400) X10*3/uL MPV 8.7 L (9.4-12.3) fL Immature Gran % (Auto) 0.5 H (0.0-0.4) % Neut % (Auto) 70.4 (45-73) % Lymph % (Auto) 17.2 L (20-40) % Motley % (Auto) 10.7 (2-11) % Eos % (Auto) 0.6 (0-4) % Baso % (Auto) 0.6 (0-2) % Lymph # (Auto) 1.5 (1.2-4.9) X10*3/uL Motley # (Auto) 1.0 (0.1-1.2) X10*3/uL Eos # (Auto) 0.1 (0.0-0.4) X10*3/uL Baso # (Auto) 0.1 (0.0-0.2) X10*3/uL Abs Immat Gran (auto) 0.04 H (0.00-0.03) X10*3/uL Absolute Neuts (auto) 6.3 (2.0-8.3) x10*3/uL Absolute Nucleated RBC 0.000 (0.0-0.012) X10*3/uL Nucleated RBC % (auto) 0.0 (0.0-0.2) /100WBC Sodium 136 (135-145) mmol/L Potassium 3.7 (3.3-5.1) mmol/L Chloride 103 (96-108) mmol/L Carbon Dioxide 23 (22-29) mmol/L Anion Gap 14 (12-20) BUN 16 (9-16) mg/dL Creatinine 0.77 (0.5-1.4) mg/dL Estim Creat Clear Calc 75.8 Estimated GFR > 60 Random Glucose 112 (60-115) mg/dL Calcium 9.5 (8.4-10.2) mg/dL Total Bilirubin 0.4 (0.0-1.0) mg/dL Direct Bilirubin < 0.2 (0.0-0.5) mg/dL AST 18 (5-31) U/L ALT 11 (0-31) U/L Alkaline Phosphatase 134 H (39-117) U/L Total Protein 7.2 (6.5-8.0) g/dL Albumin 4.0 (3.5-5.0) g/dL Urine Color Urine Appearance Urine pH (5.0-8.0) Ur Specific Hardwick (1.005-1.025) Urine Protein (NEG-TRACE) MG/DL Urine Glucose (UA) (NEG) MG/DL Urine Ketones (NEG) MG/DL Urine Blood (NEG) Urine Nitrite (NEG) Ur Leukocyte Esterase (NEG) Ethyl Alcohol < 10 mg/dL COVID-19 (LUANNE) (Negative) COVID-19 Clin Com 09/08/21 09/08/21 Range/Units 12:53 20:44 WBC (4.8-10.8) X10*3/uL RBC (4.20-5.50) X10*6/uL Hgb (12.0-16.0) g/dl Hct (37.0-47.0) % MCV (80.0-98.0) fL MCH (27.0-33.0) pg MCHC (31.0-35.0) g/dl RDW (11.0-16.0) % Plt Count (160-400) X10*3/uL MPV (9.4-12.3) fL Immature Gran % (Auto) (0.0-0.4) % Neut % (Auto) (45-73) % Lymph % (Auto) (20-40) % Motley % (Auto) (2-11) % Eos % (Auto) (0-4) % Baso % (Auto) (0-2) % Lymph # (Auto) (1.2-4.9) X10*3/uL Motley # (Auto) (0.1-1.2) X10*3/uL Eos # (Auto) (0.0-0.4) X10*3/uL Baso # (Auto) (0.0-0.2) X10*3/uL Abs Immat Gran (auto) (0.00-0.03) X10*3/uL Absolute Neuts (auto) (2.0-8.3) x10*3/uL Absolute Nucleated RBC (0.0-0.012) X10*3/uL Nucleated RBC % (auto) (0.0-0.2) /100WBC Sodium (135-145) mmol/L Potassium (3.3-5.1) mmol/L Chloride (96-108) mmol/L Carbon Dioxide (22-29) mmol/L Anion Gap (12-20) BUN (9-16) mg/dL Creatinine (0.5-1.4) mg/dL Estim Creat Clear Calc Estimated GFR Random Glucose (60-115) mg/dL Calcium (8.4-10.2) mg/dL Total Bilirubin (0.0-1.0) mg/dL Direct Bilirubin (0.0-0.5) mg/dL AST (5-31) U/L ALT (0-31) U/L Alkaline Phosphatase (39-117) U/L Total Protein (6.5-8.0) g/dL Albumin (3.5-5.0) g/dL Urine Color YELLOW Urine Appearance HAZY Urine pH 5.5 (5.0-8.0) Ur Specific Hardwick >= 1.030 H (1.005-1.025) Urine Protein NEG (NEG-TRACE) MG/DL Urine Glucose (UA) NEG (NEG) MG/DL Urine Ketones 5 (NEG) MG/DL Urine Blood 1+ H (NEG) Urine Nitrite NEG (NEG) Ur Leukocyte Esterase NEG (NEG) Ethyl Alcohol mg/dL COVID-19 (LUANNE) Negative (Negative) COVID-19 Clin Com See Note Discharge Plan Discharge Clinical Impression: Bipolar 1 disorder Patient Disposition: Still a Patient Prescriptions: No Action acetaminophen 325 mg Tablet 650 mg PO Q6H PRN (Reason: Fever Or Pain) 0RF oxycodone 5 mg Tablet 5 mg PO Q4H PRN (Reason: Pain) 0RF apixaban 5 mg Tablet 5 mg PO BID 0RF Rx Instructions: start on 09/14 oxycodone [OxyContin] 10 mg Tablet,Oral Only,Ext.Rel.12 Hr 10 mg PO Q12H 0RF lorazepam [Ativan] 0.5 mg tablet 0.5 mg PO Q6H PRN (Reason: Anxiety) 0RF Rx Instructions: x 48 hrs Eliquis DVT-PE Treat 30D Start 5 mg (74 tabs) tablets,dose pack 10 mg PO BID 0RF Rx Instructions: 10 mg twice daily for 7 days followed by 5 mg daily. Medication is for 30 days. quetiapine 400 mg tablet 800 mg PO BEDTIME 0RF melatonin 5 mg tablet 10 mg PO BEDTIME 0RF gabapentin 400 mg capsule 800 mg PO BEDTIME 0RF docusate sodium 100 mg capsule 1 cap PO BID 0RF multivitamin Tablet 1 tab PO DAILY 0RF calcium carbonate-vitamin D3 [Calcium + D] 600 mg-5 mcg (200 unit) Tablet 1 tab PO DAILY Qty: 0 0RF biotin 5,000 mcg Tablet, Sublingual 5,000 mcg SUBLINGUAL DAILY 0RF loratadine [Claritin] 10 mg Tablet 10 mg PO DAILY PRN (Reason: Allergy Symptoms) 0RF fluticasone propionate 50 mcg/actuation spray,suspension 1 spray intranasal DAILY PRN (Reason: Allergy Symptoms) 0RF quetiapine 100 mg tablet 100 mg PO BEDTIME PRN (Reason: Insomnia) 0RF Rx Instructions: IN ADDITION TO 800MG BEDTIME DOSE lorazepam 0.5 mg tablet 1 tab PO BEDTIME PRN (Reason: Anxiety) 0RF lactulose 10 gram/15 mL solution 15 ml PO BID PRN (Reason: constipation) 0RF omeprazole 20 mg capsule,delayed release(DR/EC) 20 mg PO BID 0RF
[2021-09-08 12:32] VITALS: BP 130/83; PULSE 106; RESP 18; TEMP 36.4; O2SAT 96; BMI 25.4
[2021-09-08 12:49] VITALS: BP 143/89; PULSE 104; RESP 18; TEMP 37.4; O2SAT 98
[2021-09-08 12:56] LABS: MANUAL DIFF FLAG NO
[2021-09-08 12:59] LABS: Basophils Absolute Auto 0.1 X10*3/uL (0.0-0.2); Basophils Percent Auto 0.6 % (0-2); Eosinophils Absolute Auto 0.1 X10*3/uL (0.0-0.4); Eosinophils Percent Auto 0.6 % (0-4); Hematocrit 38.3 % (37.0-47.0); Hemoglobin 12.5 g/dl (12.0-16.0); Imm Gran Abs Auto 0.04 X10*3/uL (0.00-0.03); Imm Gran Pct Auto 0.5 % (0.0-0.4); Lymphocytes Absolute Auto 1.5 X10*3/uL (1.2-4.9); Lymphocytes Percent Auto 17.2 % (20-40); Mean Corpuscular HGB Conc 32.6 g/dl (31.0-35.0); Mean Corpuscular Hemoglobin 29.9 pg (27.0-33.0); Mean Corpuscular Volume 91.6 fL (80.0-98.0); Mean Platelet Volume 8.7 fL (9.4-12.3); Monocytes Percent Auto 10.7 % (2-11); Neutrophils Absolute Auto 6.3 x10*3/uL (2.0-8.3); Neutrophils Percent Auto 70.4 % (45-73); Platelet Count 249 X10*3/uL (160-400); Red Blood Count 4.18 X10*6/uL (4.20-5.50); Red Cell Distribution Width 12.9 % (11.0-16.0); White Blood Count 8.9 X10*3/uL (4.8-10.8)
[2021-09-08 13:13] LABS: COVID-19 Test Negative (Negative); IDNOW Serial# 16C4AD1C
[2021-09-08 13:15] LABS: Ethanol < 10 mg/dL
[2021-09-08 13:18] LABS: Alanine Aminotransferase 11 U/L (0-31); Alkaline Phosphatase 134 U/L (39-117); Anion Gap 14 (12-20); Aspartate Amino Transferase 18 U/L (5-31); Bilirubin Direct < 0.2 mg/dL (0.0-0.5); Bilirubin Total 0.4 mg/dL (0.0-1.0); Blood Urea Nitrogen 16 mg/dL (9-16); Calcium 9.5 mg/dL (8.4-10.2); Carbon Dioxide 23 mmol/L (22-29); Chloride 103 mmol/L (96-108); Creatinine Clr Calc Pharmacy 75.8; Estimated Glomerular Filt Rate > 60; Glucose Random 112 mg/dL (60-115); Potassium 3.7 mmol/L (3.3-5.1); Sodium 136 mmol/L (135-145); Total Protein 7.2 g/dL (6.5-8.0)
[2021-09-08 14:00] VITALS: BP 143/94; PULSE 104; RESP 16; TEMP 37.1; O2SAT 97
--- NOTE | 2021-09-08 14:26 | PC.NURSE ---
rn to rn given to sara, pt aware of plan of care for transfer to pod.
--- NOTE | 2021-09-08 19:32 | PHA.MEDREC ---
Pharmacy Consult ? Medication Reconciliation Pharmacy has completed the medication reconciliation based [facility]. Mica WhiteD
[2021-09-08 20:58] LABS: Appearance Urine HAZY; Color Urine YELLOW; Glucose Urine UA NEG (NEG); Leukocyte Esterase Urine NEG (NEG); Nitrite Urine NEG (NEG); PH 5.5 (5.0-8.0); Specific Gravity - Urine >= 1.030 (1.005-1.025); UACC Culture Trigger NO; Urine Blood 1+ (NEG); Urine Ketones 5 MG/DL (NEG); Urine Protein NEG (NEG-TRACE)
[2021-09-08 21:05] LABS: Squamous Epithelial Cell Urine TRACE /LPF
[2021-09-08 21:06] LABS: Bacteria Urine 4+ /LPF
[2021-09-08 21:07] LABS: RBC Urine 0-2 /HPF (0)
[2021-09-08 21:16] LABS: Amphetamine Screen Urine Not Detected (Not Detect); Barbiturates, Urine Not Detected (Not Detect); Benzodiazepines Screen Urine Not Detected (Not Detect); Cannabinoid Screen Urine Not Detected (Not Detect); Cocaine Screen Urine Not Detected (Not Detect); Fentanyl, urine Not Detected (Not Detect); Opiate Screen Urine POSITIVE (Not Detect); Phencyclidine Screen Urine Not Detected (Not Detect)
[2021-09-08] MEDS: QUEtiapine Fumarate 400 MG TABLET 800 MG PO (21:18)
[2021-09-08] MEDS: Apixaban 5 MG TABLET 10 MG PO (21:18)
[2021-09-08] MEDS: Gabapentin 400 MG CAPSULE 800 MG PO (21:18)
[2021-09-08] MEDS: Docusate Sodium 100 MG CAPSULE PO (21:21)
[2021-09-08] MEDS: oxyCODONE HCl ER 10 MG TAB.ER.12H PO (21:22)
[2021-09-08] MEDS: Melatonin 3 MG TABLET 9 MG PO (21:22)
[2021-09-09] VITALS (8 sets, daily range): BP systolic 107–158; BP diastolic 64–98; PULSE 99–112; RESP 16–18; TEMP 36.2–37.1; O2SAT 94–98
--- NOTE | 2021-09-09 | ECG_ITS ---
Test Reason : MED CLEARANCE Blood Pressure : / mmHG Vent. Rate : 092 BPM Atrial Rate : 092 BPM P-R Int : 122 ms QRS Dur : 074 ms QT Int : 358 ms P-R-T Axes : -05 038 008 degrees QTc Int : 442 ms Normal sinus rhythm Possible Inferior infarct , age undetermined Abnormal ECG No previous ECGs available Referred By: Jenny Woodard Electronically Signed By:CHARU SCHULER MD
--- NOTE | 2021-09-09 00:24 | MHC.CARE ---
Pt is an inpatient bedsearch at this time.
[2021-09-09] MEDS: Omeprazole 20 MG CAPSULE.DR PO (06:29)
--- NOTE | 2021-09-09 06:35 | PC.NURSE ---
Patient slept intermittently for only 2 hours whole night, calm and quiet, watching TV most of the time, thought process disorganized, patient refused her medication, vss, patient was assessed by care team, disposition is section 12 inpatient bed search, will continue to monitor.
[2021-09-09] MEDS: Calcium + Vitamin D 250 MG TABLET PO (08:04)
[2021-09-09] MEDS: Apixaban 5 MG TABLET 10 MG PO (08:04)
[2021-09-09] MEDS: Multivitamin TABLET 1 TAB PO (08:04)
[2021-09-09] MEDS: Docusate Sodium 100 MG CAPSULE PO (08:04)
[2021-09-09] MEDS: oxyCODONE HCl ER 10 MG TAB.ER.12H PO (08:04)
[2021-09-09 09:53] LABS: COVID-19 Test Negative (Negative); IDNOW Serial# 16C4AD1C
--- NOTE | 2021-09-09 14:12 | PC.NURSE ---
Nurse to nurse given to m3 RN Allie.
--- NOTE | 2021-09-09 16:04 | PC.NURSE ---
Patient alert and cooperative escorted to m3 via wheelchair with belongings, staff and security.
--- NOTE | 2021-09-09 17:09 | PC.ADMIT ---
Patient is a 65 year old female with a history of bipolar disorder, admitted from [facility] ED Pod to M3 on a 12b. She was sent to the ED from [facility] for disruptive delusional behavior s/p total left knee replacement. There is some question re: whether she was receiving her psychiatric medications as previously prescribed. Patient has medical history which includes: GERD, osteopenia, constipation, cardiac murmur, total left hip replacement, left tibial DVT for which she takes Eliquis. While at [facility], patient became 'disruptive, delusional, perseveration on and dying, hopeless, Per CARE team report, patient is at baseline cooperative, pleasant, and lived independently at home. Patient has had a past hx of multiple inpatient hospitalizations at [facility], but has been doing well for the past 7 years. On arrival to the unit patient required prompting and assistance in following direction. She remained silent, staring at times, throughout admission assessment. Patient unable to complete releases, or other documents at the time of admission. She was brought to her room, attempted to toilet patient- patient unwilling, and then assisted to bed, which she accepted. Patient was offered lorazepam per provider request which she pushed away several times. Provider notified. Patient maintained her silence throughout. Per pod RN, patient has not had anything to eat or drink whilele in her care, and declined water when offered. Unable to assess SI/HI or VH/AH due to patient's current mental status.
--- NOTE | 2021-09-09 17:24 | HO.PSYADMNOT ---
HPI Date of Service: 09/09/21 Chief Complaint: Psychosis Sources of Information: patient interviewed, chart reviewed and crisis/core team assessment reviewed HPI Subjective Notes: Gambino Warning and Section 12B Healthcare Proxy: No Guardianship: No Medical Problems Affecting Mental Status: No Narrative: Steffi is a 65 y.o. female who carries a dx of VTIO, bipolar I disorder, and has hx of ECT treatment. She recently underwent a successful left total knee arthroplasty on 08/09/[address] Hudson. She presented to [facility] ED on 09/08/21 due to increased anxiety, depression, racing thoughts, poor sleep, and flashbacks. She arrived from [facility] via EMS after having been readmitted there 2 days ago and presented as disruptive, delusional, perseverative on . Per [facility] RN, pt was at the facility 2 weeks ago and this is not her baseline, as she had never displayed these symptoms. She required a 1:1 during her most recent admission and had decreased sleep, poor appetite. Pt?s sister also reported that pt was doing very well prior to her knee surgery, able to care for herself independently at home. Per CARE team eval, precipitating factors include possible med non-adherence and pt reported she had a verbal altercation with her brother.? Pt denied SI/SIB/HI. Stated I just don't feel right and need to talk to someone. Per CARE team clinician, pt was disorganized, self dialoguing, unable to provide history, and became increasingly confused and catatonic. In the ED she was refusing all care, non-adherent with PO meds, and unable to provide RN with a urine sample. She eventually required a straight cath and urinalysis was negative.? I attempted to interview pt, however she presented as catatonic, i.e. she was not responding to questions, would stare blankly. Pt would not get out of bed, refused interventions. Pt not taking anything PO, i.e. not taking in fluids or medication. Past Psychiatric History: -Psych provider is [facility] in [place] -Per sister, pt has had depression since her early 20s and has suffered from unspecified chronic pain, surgeries. -Hx of multiple psych admissions to [facility] Medical Evaluation Reviewed: Yes [facility] Medical History Anxiety Bipolar 1 disorder Constipation GERD (gastroesophageal reflux disease) History of electroconvulsive therapy Hx of skin cancer, basal cell Hx of thyroid nodule Insomnia Murmur, cardiac Osteopenia Seasonal allergies Narrative: -Pt was recently admitted to [facility] on 08/09/21-08/13/2021 due to successful left total knee arthroplasty, she was to be discharged to [facility] for STR. On 09/05/21 pt was seen at [facility] ED due to complaint of persistent pain since surgery. An ultrasound was positive for acute DVT in the left posterior tibial vein. Pt was started on eliquis. She was then readmitted to [facility] for STR, PT.? Surgical History H/O elbow surgery History of back surgery Hx of colonoscopy Family History: -Depression. In 1998 her great grandfather hung himself. Social History: -Pt has never been , no children. One dog -Pt's mother (age 88), sister, and brother are involved with pt's care. -She graduated h.s. And has bachelors in psychology. She worked at [employer]. Substance History: -Utox positive for Opiates, pt is prescribed oxycontin Diagnostics Vital Signs (24Hr): Vital Signs - 24 hr 09/09/21 06:24 09/09/21 15:22 09/09/21 16:40 Temperature 97.6 F 97.1 F 98.2 F Pulse Rate 105 H 99 106 H Respiratory Rate 16 16 18 Blood Pressure 150/79 H 144/93 H 158/98 H Pulse Oximetry 98 97 97 BMI result Body Mass Index 25.4 Labs Results: 09/09/21 21:12 09/08/21 12:52 Labs: Laboratory Results - last 48 hr 09/08/21 09/08/21 09/08/21 12:52 12:52 12:52 WBC 8.9 RBC 4.18 L Hgb 12.5 Hct 38.3 MCV 91.6 MCH 29.9 MCHC 32.6 RDW 12.9 Plt Count 249 MPV 8.7 L Immature Gran % (Auto) 0.5 H Neut % (Auto) 70.4 Lymph % (Auto) 17.2 L [place] % (Auto) 10.7 Eos % (Auto) 0.6 Baso % (Auto) 0.6 Lymph # (Auto) 1.5 [place] # (Auto) 1.0 Eos # (Auto) 0.1 Baso # (Auto) 0.1 Abs Immat Gran (auto) 0.04 H Absolute Neuts (auto) 6.3 Absolute Nucleated RBC 0.000 Nucleated RBC % (auto) 0.0 Sodium 136 Potassium 3.7 Chloride 103 Carbon Dioxide 23 Anion Gap 14 BUN 16 Creatinine 0.77 Estim Creat Clear Calc 75.8 Estimated GFR > 60 Random Glucose 112 Calcium 9.5 Total Bilirubin 0.4 Direct Bilirubin < 0.2 AST 18 ALT 11 Alkaline Phosphatase 134 H Total Protein 7.2 Albumin 4.0 Urine Color Urine Appearance Urine pH Ur Specific [place] Urine Protein Urine Glucose (UA) Urine Ketones Urine Blood Urine Nitrite Ur Leukocyte Esterase Urine RBC Urine WBC Ur Squamous Epith Cells Urine Bacteria Urine Opiates Screen Urine Fentanyl Screen Ur Barbiturates Screen Ur Phencyclidine Scrn Ur Amphetamines Screen U Benzodiazepines Scrn Urine Cocaine Screen U Marijuana (THC) Screen Ethyl Alcohol < 10 COVID-19 (LUANNE) COVID-19 Clin Com 09/08/21 09/08/21 09/08/21 12:53 20:44 20:44 WBC RBC Hgb Hct MCV MCH MCHC RDW Plt Count MPV Immature Gran % (Auto) Neut % (Auto) Lymph % (Auto) [place] % (Auto) Eos % (Auto) Baso % (Auto) Lymph # (Auto) [place] # (Auto) Eos # (Auto) Baso # (Auto) Abs Immat Gran (auto) Absolute Neuts (auto) Absolute Nucleated RBC Nucleated RBC % (auto) Sodium Potassium Chloride Carbon Dioxide Anion Gap BUN Creatinine Estim Creat Clear Calc Estimated GFR Random Glucose Calcium Total Bilirubin Direct Bilirubin AST ALT Alkaline Phosphatase Total Protein Albumin Urine Color YELLOW Urine Appearance HAZY Urine pH 5.5 Ur Specific [place] >= 1.030 H Urine Protein NEG Urine Glucose (UA) NEG Urine Ketones 5 Urine Blood 1+ H Urine Nitrite NEG Ur Leukocyte Esterase NEG Urine RBC 0-2 Urine WBC 1-4 Ur Squamous Epith Cells TRACE Urine Bacteria 4+ Urine Opiates Screen POSITIVE H Urine Fentanyl Screen Not Detected Ur Barbiturates Screen Not Detected Ur Phencyclidine Scrn Not Detected Ur Amphetamines Screen Not Detected U Benzodiazepines Scrn Not Detected Urine Cocaine Screen Not Detected U Marijuana (THC) Screen Not Detected Ethyl Alcohol COVID-19 (LUANNE) Negative COVID-19 Clin Com See Note 09/09/21 09:23 WBC RBC Hgb Hct MCV MCH MCHC RDW Plt Count MPV Immature Gran % (Auto) Neut % (Auto) Lymph % (Auto) [place] % (Auto) Eos % (Auto) Baso % (Auto) Lymph # (Auto) [place] # (Auto) Eos # (Auto) Baso # (Auto) Abs Immat Gran (auto) Absolute Neuts (auto) Absolute Nucleated RBC Nucleated RBC % (auto) Sodium Potassium Chloride Carbon Dioxide Anion Gap BUN Creatinine Estim Creat Clear Calc Estimated GFR Random Glucose Calcium Total Bilirubin Direct Bilirubin AST ALT Alkaline Phosphatase Total Protein Albumin Urine Color Urine Appearance Urine pH Ur Specific [place] Urine Protein Urine Glucose (UA) Urine Ketones Urine Blood Urine Nitrite Ur Leukocyte Esterase Urine RBC Urine WBC Ur Squamous Epith Cells Urine Bacteria Urine Opiates Screen Urine Fentanyl Screen Ur Barbiturates Screen Ur Phencyclidine Scrn Ur Amphetamines Screen U Benzodiazepines Scrn Urine Cocaine Screen U Marijuana (THC) Screen Ethyl Alcohol COVID-19 (LUANNE) Negative COVID-19 Clin Com See Note Meds/Allergies Meds Home Medications Acetaminophen (Acetaminophen 325 Mg Tablet) 650 mg PO Q6H PRN PRN Reason: Fever Or Pain Al Hydroxide/Mg Hydroxide (Magnesium Hydrox/Alum Hydrox 30 Ml Oral.Susp) 30 ml PO Q6H PRN PRN Reason: Heartburn/Nausea Apixaban (Apixaban 5 Mg Tablet) 5 mg PO BID [facility] Apixaban (Apixaban 5 Mg Tablet) 10 mg PO BID [facility] Stop: 09/13/21 22:00 Last Admin: 09/09/21 08:04 Dose: 10 mg Documented by: Calcium Carbonate/Cholecalciferol (Calcium + Vitamin D 250 Mg Tablet) 250 mg PO DAILY [facility] Last Admin: 09/09/21 08:04 Dose: 250 mg Documented by: Docusate Sodium (Docusate Sodium 100 Mg Capsule) 100 mg PO BID [facility] Last Admin: 09/09/21 22:19 Dose: Not Given Documented by: Enoxaparin Sodium (Enoxaparin Sodium 80 Mg/0.8 Ml Syringe) 70 mg SUBCUT Q12H [facility] Last Admin: 09/09/21 22:33 Dose: 70 mg Documented by: Fluticasone Propionate (Fluticasone Propionate Nasal 16 Gm [place]) 1 spray NOSTRIL-B DAILY PRN PRN Reason: Allergy Symptoms Gabapentin (Gabapentin 400 Mg Capsule) 800 mg PO BEDTIME [facility] Last Admin: 09/09/21 22:19 Dose: Not Given Documented by: Lactulose (Lactulose 20 Gm/30 Ml Solution) 10 gm PO BID PRN PRN Reason: constipation Loratadine (Loratadine 10 Mg Tablet) 10 mg PO DAILY PRN PRN Reason: Allergy Symptoms Lorazepam (Lorazepam 1 Mg Tablet) 1 mg PO Q6H PRN PRN Reason: catatonic Magnesium Hydroxide (Milk Of Magnesia 30 Ml Oral.Susp) 30 ml PO DAILY PRN PRN Reason: Constipation Melatonin (Melatonin 3 Mg Tablet) 9 mg PO BEDTIME [facility] Last Admin: 09/09/21 22:19 Dose: Not Given Documented by: Multivitamins/Vitamin C (Multivitamin Tablet) 1 tab PO DAILY [facility] Last Admin: 09/09/21 08:04 Dose: 1 tab Documented by: Omeprazole (Omeprazole 20 Mg Capsule.Dr) 20 mg PO BID@0630,1630 [facility] Last Admin: 09/09/21 18:08 Dose: Not Given Documented by: Oxycodone HCl (Oxycodone Hcl Er 10 Mg Tab.Er.12h) 10 mg PO Q12H [facility] Last Admin: 09/09/21 22:19 Dose: Not Given Documented by: Oxycodone HCl (Oxycodone Hcl Immed Release 5 Mg Tablet) 5 mg PO Q6H PRN PRN Reason: Pain, Mild (Pain Scale 1-3) Quetiapine Fumarate (Quetiapine Fumarate 100 Mg Tablet) 100 mg PO BEDTIME PRN PRN Reason: Insomnia Quetiapine Fumarate (Quetiapine Fumarate 400 Mg Tablet) 800 mg PO BEDTIME [facility] Last Admin: 09/09/21 22:19 Dose: Not Given Documented by: Trazodone HCl (Trazodone Hcl 50 Mg Tablet) 50 mg PO BEDTIME PRN PRN Reason: Insomnia Allergies Allergies Allergy/AdvReac Type Severity Reaction Status Date / Time bee pollen Allergy Severe Anaphylaxis Verified 08/25/21 12:46 levofloxacin [From Levaquin] Allergy Severe Itching Verified 08/25/21 12:46 Penicillins Allergy Unknown Unknown Verified 08/25/21 12:46 Mental Status Exam Mental Status Exam Narrative: Pt is alert, however she is not oriented to situation, place, time. She is in hospital attire, under blanket, staring off. Poor eye contact, inattentive. No Tics or Tremors. No abnormal involuntary movements. Pt not responding verbally. She is presenting with s/s of catatonia. Assessment & Plan Assessment & Plan (1) Bipolar 1 disorder: Status: Acute Code(s): F31.9 - Bipolar disorder, unspecified (2) VITO (generalized anxiety disorder): Status: Acute Code(s): F41.1 - Generalized anxiety disorder Plan Steffi is a 65 y.o. female who carries a dx of VITO, bipolar I disorder, and has hx of ECT treatment. She recently underwent a successful left total knee arthroplasty on 08/09/[address] Hudson. She presented to [facility] ED on 09/08/21 from [facility] via EMS due to presenting as delusional, disorganized, confused, and self dialoguing. Prior to her knee surgery, pt was able to care for herself independently at home. There is a questions of med non-adherence. In the ED pt was refusing all care, non-adherent with PO meds, and unable to provide RN with a urine sample. She eventually required a straight cath and urinalysis was negative.? Plan: Will administer Ativan 1 mg IM for s/s of catatonia, monitor for benefit. Pt is not taking PO medication. Will start lovenox and hold eliquis. Ordered head CT due to altered mental status. Consulted with Dr. Rangel on treatment plan. 1:1 safety checks, 12b Monitor response to medications. Monitor for safety in the milieu. Discharge on stabilization. Patient seen. Chart reviewed. Discussed with team. Obtain collateral contact info?as needed Patient educated on: other Informed Consent: does not understand Reason for continued inpatient stay Substantial Risk for: inability to function, rapid decompensation and med/psych decompensation
[2021-09-09] MEDS: LORazepam 2 MG/ML VIAL 1 MG IM (20:50)
[2021-09-09 21:25] LABS: Hematocrit 39.1 % (37.0-47.0); Mean Corpuscular HGB Conc 33.2 g/dl (31.0-35.0); Mean Corpuscular Volume 90.3 fL (80.0-98.0); Mean Platelet Volume 8.8 fL (9.4-12.3); Platelet Count 261 X10*3/uL (160-400); Red Blood Count 4.33 X10*6/uL (4.20-5.50); Red Cell Distribution Width 12.5 % (11.0-16.0); White Blood Count 9.2 X10*3/uL (4.8-10.8)
[2021-09-09 21:35] LABS: INTERNATIONAL NORM RATIO 1.2 (0.9-1.1); Prothrombin Time 13.8 SEC (9.9-13.0)
[2021-09-09 21:37] LABS: Partial Thromboplastin Time 36.9 SEC (24.1-38.0)
--- NOTE | 2021-09-09 22:11 | HO.PSYCHPN ---
Subjective Subjective Reason For Visit: Psychosis Diagnostics Vital Signs (24Hr): Vital Signs - 24 hr 09/09/21 06:24 09/09/21 15:22 09/09/21 16:40 Temperature 97.6 F 97.1 F 98.2 F Pulse Rate 105 H 99 106 H Respiratory Rate 16 16 18 Blood Pressure 150/79 H 144/93 H 158/98 H Pulse Oximetry 98 97 97 09/09/21 21:49 Temperature 97.3 F Pulse Rate 105 H Respiratory Rate Blood Pressure 107/73 Pulse Oximetry 98 BMI result Body Mass Index 25.4 Labs Results: 09/09/21 21:12 09/08/21 12:52 Labs: Laboratory Results - last 48 hr 09/08/21 09/08/21 09/08/21 12:52 12:52 12:52 WBC 8.9 RBC 4.18 L Hgb 12.5 Hct 38.3 MCV 91.6 MCH 29.9 MCHC 32.6 RDW 12.9 Plt Count 249 MPV 8.7 L Immature Gran % (Auto) 0.5 H Neut % (Auto) 70.4 Lymph % (Auto) 17.2 L [place] % (Auto) 10.7 Eos % (Auto) 0.6 Baso % (Auto) 0.6 Lymph # (Auto) 1.5 [place] # (Auto) 1.0 Eos # (Auto) 0.1 Baso # (Auto) 0.1 Abs Immat Gran (auto) 0.04 H Absolute Neuts (auto) 6.3 Absolute Nucleated RBC 0.000 Nucleated RBC % (auto) 0.0 PT INR APTT Sodium 136 Potassium 3.7 Chloride 103 Carbon Dioxide 23 Anion Gap 14 BUN 16 Creatinine 0.77 Estim Creat Clear Calc 75.8 Estimated GFR > 60 Random Glucose 112 Calcium 9.5 Total Bilirubin 0.4 Direct Bilirubin < 0.2 AST 18 ALT 11 Alkaline Phosphatase 134 H Total Protein 7.2 Albumin 4.0 Urine Color Urine Appearance Urine pH Ur Specific [place] Urine Protein Urine Glucose (UA) Urine Ketones Urine Blood Urine Nitrite Ur Leukocyte Esterase Urine RBC Urine WBC Ur Squamous Epith Cells Urine Bacteria Urine Opiates Screen Urine Fentanyl Screen Ur Barbiturates Screen Ur Phencyclidine Scrn Ur Amphetamines Screen U Benzodiazepines Scrn Urine Cocaine Screen U Marijuana (THC) Screen Ethyl Alcohol < 10 COVID-19 (LUANNE) COVID-19 Clin Com 09/08/21 09/08/21 09/08/21 12:53 20:44 20:44 WBC RBC Hgb Hct MCV MCH MCHC RDW Plt Count MPV Immature Gran % (Auto) Neut % (Auto) Lymph % (Auto) [place] % (Auto) Eos % (Auto) Baso % (Auto) Lymph # (Auto) [place] # (Auto) Eos # (Auto) Baso # (Auto) Abs Immat Gran (auto) Absolute Neuts (auto) Absolute Nucleated RBC Nucleated RBC % (auto) PT INR APTT Sodium Potassium Chloride Carbon Dioxide Anion Gap BUN Creatinine Estim Creat Clear Calc Estimated GFR Random Glucose Calcium Total Bilirubin Direct Bilirubin AST ALT Alkaline Phosphatase Total Protein Albumin Urine Color YELLOW Urine Appearance HAZY Urine pH 5.5 Ur Specific [place] >= 1.030 H Urine Protein NEG Urine Glucose (UA) NEG Urine Ketones 5 Urine Blood 1+ H Urine Nitrite NEG Ur Leukocyte Esterase NEG Urine RBC 0-2 Urine WBC 1-4 Ur Squamous Epith Cells TRACE Urine Bacteria 4+ Urine Opiates Screen POSITIVE H Urine Fentanyl Screen Not Detected Ur Barbiturates Screen Not Detected Ur Phencyclidine Scrn Not Detected Ur Amphetamines Screen Not Detected U Benzodiazepines Scrn Not Detected Urine Cocaine Screen Not Detected U Marijuana (THC) Screen Not Detected Ethyl Alcohol COVID-19 (LUANNE) Negative COVID-19 Clin Com See Note 09/09/21 09/09/21 09/09/21 09:23 21:12 21:12 WBC 9.2 RBC 4.33 Hgb 13.0 Hct 39.1 MCV 90.3 MCH 30.0 MCHC 33.2 RDW 12.5 Plt Count 261 MPV 8.8 L Immature Gran % (Auto) Neut % (Auto) Lymph % (Auto) [place] % (Auto) Eos % (Auto) Baso % (Auto) Lymph # (Auto) [place] # (Auto) Eos # (Auto) Baso # (Auto) Abs Immat Gran (auto) Absolute Neuts (auto) Absolute Nucleated RBC 0.000 Nucleated RBC % (auto) 0.0 PT 13.8 H INR 1.2 H APTT 36.9 Sodium Potassium Chloride Carbon Dioxide Anion Gap BUN Creatinine Estim Creat Clear Calc Estimated GFR Random Glucose Calcium Total Bilirubin Direct Bilirubin AST ALT Alkaline Phosphatase Total Protein Albumin Urine Color Urine Appearance Urine pH Ur Specific [place] Urine Protein Urine Glucose (UA) Urine Ketones Urine Blood Urine Nitrite Ur Leukocyte Esterase Urine RBC Urine WBC Ur Squamous Epith Cells Urine Bacteria Urine Opiates Screen Urine Fentanyl Screen Ur Barbiturates Screen Ur Phencyclidine Scrn Ur Amphetamines Screen U Benzodiazepines Scrn Urine Cocaine Screen U Marijuana (THC) Screen Ethyl Alcohol COVID-19 (LUANNE) Negative COVID-19 Clin Com See Note Medications Medications Current Medications Acetaminophen (Acetaminophen 325 Mg Tablet) 650 mg PO Q6H PRN PRN Reason: Fever Or Pain Al Hydroxide/Mg Hydroxide (Magnesium Hydrox/Alum Hydrox 30 Ml Oral.Susp) 30 ml PO Q6H PRN PRN Reason: Heartburn/Nausea Apixaban (Apixaban 5 Mg Tablet) 5 mg PO BID [facility] Apixaban (Apixaban 5 Mg Tablet) 10 mg PO BID [facility] Stop: 09/13/21 22:00 Last Admin: 09/09/21 08:04 Dose: 10 mg Documented by: Calcium Carbonate/Cholecalciferol (Calcium + Vitamin D 250 Mg Tablet) 250 mg PO DAILY [facility] Last Admin: 09/09/21 08:04 Dose: 250 mg Documented by: Docusate Sodium (Docusate Sodium 100 Mg Capsule) 100 mg PO BID [facility] Last Admin: 09/09/21 08:04 Dose: 100 mg Documented by: Enoxaparin Sodium (Enoxaparin Sodium 80 Mg/0.8 Ml Syringe) 70 mg SUBCUT Q12H [facility] Fluticasone Propionate (Fluticasone Propionate Nasal 16 Gm [place]) 1 spray NOSTRIL-B DAILY PRN PRN Reason: Allergy Symptoms Gabapentin (Gabapentin 400 Mg Capsule) 800 mg PO BEDTIME [facility] Last Admin: 09/08/21 21:18 Dose: 800 mg Documented by: Lactulose (Lactulose 20 Gm/30 Ml Solution) 10 gm PO BID PRN PRN Reason: constipation Loratadine (Loratadine 10 Mg Tablet) 10 mg PO DAILY PRN PRN Reason: Allergy Symptoms Lorazepam (Lorazepam 1 Mg Tablet) 1 mg PO Q6H PRN PRN Reason: catatonic Magnesium Hydroxide (Milk Of Magnesia 30 Ml Oral.Susp) 30 ml PO DAILY PRN PRN Reason: Constipation Melatonin (Melatonin 3 Mg Tablet) 9 mg PO BEDTIME [facility] Last Admin: 09/08/21 21:22 Dose: 9 mg Documented by: Multivitamins/Vitamin C (Multivitamin Tablet) 1 tab PO DAILY [facility] Last Admin: 09/09/21 08:04 Dose: 1 tab Documented by: Omeprazole (Omeprazole 20 Mg Capsule.Dr) 20 mg PO BID@0630,1630 [facility] Last Admin: 09/09/21 18:08 Dose: Not Given Documented by: Oxycodone HCl (Oxycodone Hcl Er 10 Mg Tab.Er.12h) 10 mg PO Q12H [facility] Last Admin: 09/09/21 08:04 Dose: 10 mg Documented by: Oxycodone HCl (Oxycodone Hcl Immed Release 5 Mg Tablet) 5 mg PO Q6H PRN PRN Reason: Pain, Mild (Pain Scale 1-3) Quetiapine Fumarate (Quetiapine Fumarate 100 Mg Tablet) 100 mg PO BEDTIME PRN PRN Reason: Insomnia Quetiapine Fumarate (Quetiapine Fumarate 400 Mg Tablet) 800 mg PO BEDTIME [facility] Last Admin: 09/08/21 21:18 Dose: 800 mg Documented by: Trazodone HCl (Trazodone Hcl 50 Mg Tablet) 50 mg PO BEDTIME PRN PRN Reason: Insomnia Allergies Allergies Allergy/AdvReac Type Severity Reaction Status Date / Time bee pollen Allergy Severe Anaphylaxis Verified 08/25/21 12:46 levofloxacin [From Levaquin] Allergy Severe Itching Verified 08/25/21 12:46 Penicillins Allergy Unknown Unknown Verified 08/25/21 12:46 Assessment & Plan I spent minutes with the patient and/or on the patient floor today, greater than?50% of which was spent counseling/coordinating care.
--- NOTE | 2021-09-09 22:22 | PC.NURSE ---
refusing all po medications. refusing all oral interventions including water or foods.
[2021-09-09] MEDS: Enoxaparin Sodium 80 MG/0.8 ML SYRINGE 70 MG SUBCUT (22:33)
--- NOTE | 2021-09-10 09:49 | HO.PSYCHPN ---
Subjective Subjective Date of Service: 09/10/21 Reason For Visit: Psychosis Subjective Notes: Section 12B Interim History: Pt continues to be disoriented, confused, preoccupied with internal stimuli, psychotic, combative at times. Refusing care. Medication Compliance: No Side effects from medications: No Attending Groups: No Review of Systems left tibial DVT Medical Review of Systems: unchanged Review of Systems Review of Systems Pt medically cleared in the ED Yes all other systems are reviewed and are negative Constitutional: Reports no additional constitutional complaints, Denies body ache(s), Denies chills, Reports difficulty sleeping, Denies fever(s), Denies headache(s), Reports poor appetite and Denies weakness Eyes: Reports no additional eye complaints and Denies change in vision Reports system reviewed and no additional complaints, except as documented, Denies dizziness, Denies headache(s), Denies nasal congestion, Denies nasal discharge and Denies neck pain Cardiovascular: Reports no additional cardiovascular complaints, Denies chest pain, Denies leg edema and Denies dyspnea Respiratory: Reports no additional respiratory complaints, Denies cough and Denies dyspnea Gastrointestinal: Reports no additional gastrointestinal complaints, Denies abdominal pain, Denies diarrhea, Denies nausea and Denies vomiting Musculoskeletal: Reports no additional musculoskeletal complaints, Denies back pain, Denies arthralgias, Denies joint swelling, Denies neck pain, Denies numbness and Denies tingling Skin/Breast: Reports system reviewed and no additional complaints, except as docu and Denies rash Reports system reviewed and no additional complaints, except as documented, Denies Abnormal speech present, Denies dizziness, Denies headache(s), Denies numbness, Denies tingling and Denies weakness Psychiatric: Reports anxiety, Reports depression, Denies visual hallucinations, Denies hallucinations, Denies homicidal ideation and Denies suicidal ideation Comments: no bruising noted Mental Status Exam Mental Status Exam Narrative: Pt is alert, however she is not oriented to situation, place, time. She is in hospital attire, up walking on unit, staring blankly, disorganized, refsing care, poor eye contact, inattentive. stating she is going to be shot, stating she is in [facility], fearful, uncooperative, difficult to calm, No Tics or Tremors. No abnormal involuntary movements.. Patient Appearance: Disheveled Diagnostics Vital Signs (24Hr): Vital Signs - 24 hr 09/09/21 15:22 09/09/21 16:40 09/09/21 21:00 Temperature 97.1 F 98.2 F 98.8 F Pulse Rate 99 106 H 103 H Respiratory Rate 16 18 Blood Pressure 144/93 H 158/98 H 149/76 H Pulse Oximetry 97 97 96 09/09/21 21:15 09/09/21 21:35 09/09/21 21:49 Temperature 98.4 F 98.2 F 97.3 F Pulse Rate 105 H 103 H 105 H Respiratory Rate Blood Pressure 116/64 130/70 107/73 Pulse Oximetry 94 94 98 09/09/21 21:50 Temperature 97.8 F Pulse Rate 112 H Respiratory Rate Blood Pressure 132/73 Pulse Oximetry 94 BMI result Body Mass Index 25.4 Labs Results: 09/10/21 15:18 09/10/21 15:18 Labs: Laboratory Results - last 48 hr 09/08/21 09/08/21 09/08/21 12:52 12:52 12:52 WBC 8.9 RBC 4.18 L Hgb 12.5 Hct 38.3 MCV 91.6 MCH 29.9 MCHC 32.6 RDW 12.9 Plt Count 249 MPV 8.7 L Immature Gran % (Auto) 0.5 H Neut % (Auto) 70.4 Lymph % (Auto) 17.2 L Logan % (Auto) 10.7 Eos % (Auto) 0.6 Baso % (Auto) 0.6 Lymph # (Auto) 1.5 Logan # (Auto) 1.0 Eos # (Auto) 0.1 Baso # (Auto) 0.1 Abs Immat Gran (auto) 0.04 H Absolute Neuts (auto) 6.3 Absolute Nucleated RBC 0.000 Nucleated RBC % (auto) 0.0 PT INR APTT Sodium 136 Potassium 3.7 Chloride 103 Carbon Dioxide 23 Anion Gap 14 BUN 16 Creatinine 0.77 Estim Creat Clear Calc 75.8 Estimated GFR > 60 Random Glucose 112 Calcium 9.5 Total Bilirubin 0.4 Direct Bilirubin < 0.2 AST 18 ALT 11 Alkaline Phosphatase 134 H Total Protein 7.2 Albumin 4.0 Urine Color Urine Appearance Urine pH Ur Specific [place] Urine Protein Urine Glucose (UA) Urine Ketones Urine Blood Urine Nitrite Ur Leukocyte Esterase Urine RBC Urine WBC Ur Squamous Epith Cells Urine Bacteria Urine Opiates Screen Urine Fentanyl Screen Ur Barbiturates Screen Ur Phencyclidine Scrn Ur Amphetamines Screen U Benzodiazepines Scrn Urine Cocaine Screen U Marijuana (THC) Screen Ethyl Alcohol < 10 COVID-19 ([facility]NE) COVID-19 [employer] 09/08/21 09/08/21 09/08/21 12:53 20:44 20:44 WBC RBC Hgb Hct MCV MCH MCHC RDW Plt Count MPV Immature Gran % (Auto) Neut % (Auto) Lymph % (Auto) Logan % (Auto) Eos % (Auto) Baso % (Auto) Lymph # (Auto) Logan # (Auto) Eos # (Auto) Baso # (Auto) Abs Immat Gran (auto) Absolute Neuts (auto) Absolute Nucleated RBC Nucleated RBC % (auto) PT INR APTT Sodium Potassium Chloride Carbon Dioxide Anion Gap BUN Creatinine Estim Creat Clear Calc Estimated GFR Random Glucose Calcium Total Bilirubin Direct Bilirubin AST ALT Alkaline Phosphatase Total Protein Albumin Urine Color YELLOW Urine Appearance HAZY Urine pH 5.5 Ur Specific [place] >= 1.030 H Urine Protein NEG Urine Glucose (UA) NEG Urine Ketones 5 Urine Blood 1+ H Urine Nitrite NEG Ur Leukocyte Esterase NEG Urine RBC 0-2 Urine WBC 1-4 Ur Squamous Epith Cells TRACE Urine Bacteria 4+ Urine Opiates Screen POSITIVE H Urine Fentanyl Screen Not Detected Ur Barbiturates Screen Not Detected Ur Phencyclidine Scrn Not Detected Ur Amphetamines Screen Not Detected U Benzodiazepines Scrn Not Detected Urine Cocaine Screen Not Detected U Marijuana (THC) Screen Not Detected Ethyl Alcohol COVID-19 (LUANNE) Negative COVID-19 [employer] See Note 09/09/21 09/09/21 09/09/21 09:23 21:12 21:12 WBC 9.2 RBC 4.33 Hgb 13.0 Hct 39.1 MCV 90.3 MCH 30.0 MCHC 33.2 RDW 12.5 Plt Count 261 MPV 8.8 L Immature Gran % (Auto) Neut % (Auto) Lymph % (Auto) Logan % (Auto) Eos % (Auto) Baso % (Auto) Lymph # (Auto) Logan # (Auto) Eos # (Auto) Baso # (Auto) Abs Immat Gran (auto) Absolute Neuts (auto) Absolute Nucleated RBC 0.000 Nucleated RBC % (auto) 0.0 PT 13.8 H INR 1.2 H APTT 36.9 Sodium Potassium Chloride Carbon Dioxide Anion Gap BUN Creatinine Estim Creat Clear Calc Estimated GFR Random Glucose Calcium Total Bilirubin Direct Bilirubin AST ALT Alkaline Phosphatase Total Protein Albumin Urine Color Urine Appearance Urine pH Ur Specific [place] Urine Protein Urine Glucose (UA) Urine Ketones Urine Blood Urine Nitrite Ur Leukocyte Esterase Urine RBC Urine WBC Ur Squamous Epith Cells Urine Bacteria Urine Opiates Screen Urine Fentanyl Screen Ur Barbiturates Screen Ur Phencyclidine Scrn Ur Amphetamines Screen U Benzodiazepines Scrn Urine Cocaine Screen U Marijuana (THC) Screen Ethyl Alcohol COVID-19 ([facility]NE) Negative COVID-19 Clin Com See Note Medications Medications Current Medications Acetaminophen (Acetaminophen 325 Mg Tablet) 650 mg PO Q6H PRN PRN Reason: Fever Or Pain Al Hydroxide/Mg Hydroxide (Magnesium Hydrox/Alum Hydrox 30 Ml Oral.Susp) 30 ml PO Q6H PRN PRN Reason: Heartburn/Nausea Apixaban (Apixaban 5 Mg Tablet) 5 mg PO BID [facility] Apixaban (Apixaban 5 Mg Tablet) 10 mg PO BID [facility] Stop: 09/13/21 22:00 Last Admin: 09/09/21 08:04 Dose: 10 mg Documented by: Calcium Carbonate/Cholecalciferol (Calcium + Vitamin D 250 Mg Tablet) 250 mg PO DAILY [facility] Last Admin: 09/09/21 08:04 Dose: 250 mg Documented by: Docusate Sodium (Docusate Sodium 100 Mg Capsule) 100 mg PO BID [facility] Last Admin: 09/09/21 22:19 Dose: Not Given Documented by: Enoxaparin Sodium (Enoxaparin Sodium 80 Mg/0.8 Ml Syringe) 70 mg SUBCUT Q12H [facility] Last Admin: 09/09/21 22:33 Dose: 70 mg Documented by: Fluticasone Propionate (Fluticasone Propionate Nasal 16 Gm [place]) 1 spray NOSTRIL-B DAILY PRN PRN Reason: Allergy Symptoms Gabapentin (Gabapentin 400 Mg Capsule) 800 mg PO BEDTIME [facility] Last Admin: 09/09/21 22:19 Dose: Not Given Documented by: Lactulose (Lactulose 20 Gm/30 Ml Solution) 10 gm PO BID PRN PRN Reason: constipation Loratadine (Loratadine 10 Mg Tablet) 10 mg PO DAILY PRN PRN Reason: Allergy Symptoms Lorazepam (Lorazepam 1 Mg Tablet) 1 mg PO Q6H PRN PRN Reason: catatonic Magnesium Hydroxide (Milk Of Magnesia 30 Ml Oral.Susp) 30 ml PO DAILY PRN PRN Reason: Constipation Melatonin (Melatonin 3 Mg Tablet) 9 mg PO BEDTIME [facility] Last Admin: 09/09/21 22:19 Dose: Not Given Documented by: Multivitamins/Vitamin C (Multivitamin Tablet) 1 tab PO DAILY [facility] Last Admin: 09/09/21 08:04 Dose: 1 tab Documented by: Omeprazole (Omeprazole 20 Mg Capsule.) 20 mg PO BID@0630,1630 [facility] Last Admin: 09/10/21 09:37 Dose: Not Given Documented by: Oxycodone HCl (Oxycodone Hcl Er 10 Mg Tab.Er.12h) 10 mg PO Q12H [facility] Last Admin: 09/10/21 09:38 Dose: Not Given Documented by: Oxycodone HCl (Oxycodone Hcl Immed Release 5 Mg Tablet) 5 mg PO Q6H PRN PRN Reason: Pain, Mild (Pain Scale 1-3) Quetiapine Fumarate (Quetiapine Fumarate 100 Mg Tablet) 100 mg PO BEDTIME PRN PRN Reason: Insomnia Quetiapine Fumarate (Quetiapine Fumarate 400 Mg Tablet) 800 mg PO BEDTIME [facility] Last Admin: 09/09/21 22:19 Dose: Not Given Documented by: Trazodone HCl (Trazodone Hcl 50 Mg Tablet) 50 mg PO BEDTIME PRN PRN Reason: Insomnia Allergies Allergies Allergy/AdvReac Type Severity Reaction Status Date / Time bee pollen Allergy Severe Anaphylaxis Verified 08/25/21 12:46 levofloxacin [From Levaquin] Allergy Severe Itching Verified 08/25/21 12:46 Penicillins Allergy Unknown Unknown Verified 08/25/21 12:46 Assessment & Plan Assessment & Plan (1) Bipolar 1 disorder: Status: Acute Code(s): F31.9 - Bipolar disorder, unspecified (2) VITO (generalized anxiety disorder): Status: Acute Code(s): F41.1 - Generalized anxiety disorder Plan Steffi is a 65 y.o. female who carries a dx of VITO, bipolar I disorder, and has hx of ECT treatment. She recently underwent a successful left total knee arthroplasty on 08/09/[address] Hudson. She [place] [facility] [place] from [facility] via EMS due to presenting as delusional, disorganized, confused, and self dialoguing. Prior to her knee surgery, pt was able to care for herself independently at home. There is a questions of med non-adherence. In the ED pt was refusing all care, non-adherent with PO meds, and unable to provide RN with a urine sample. She eventually required a straight cath and urinalysis was negative.? Plan: 1:1 safety checks, 12b Monitor response to medications. Monitor for safety in the milieu. Discharge upon stabilization. Patient seen. Chart reviewed. Discussed with team. awaiting CT scan results seroquel HS dose reduced as pt not consistently taking Ativan 1 mg IM ordered due to psychosis, combative, and resistant to medically necessary care( luvenox sc) I spent ___30___ minutes with the patient and/or on the patient floor today, greater than?50% of which was spent counseling/coordinating care. Patient educated on: medication risk/benefits, therapeutic strategies and medical condition Informed Consent: does not understand Reason for contiued inpatient stay Substantial Risk for: harm to self, inability to function, rapid decompensation and med/psych decompensation
[2021-09-10] MEDS: LORazepam 2 MG/ML VIAL 1 MG IM (10:49)
[2021-09-10] MEDS: Enoxaparin Sodium 80 MG/0.8 ML SYRINGE 70 MG SUBCUT ×2 (10:50→22:29)
--- NOTE | 2021-09-10 11:38 | PC.NURSE ---
Addendum entered by Verenice Cordoba RN 09/10/21 11:46: Time of Ativan administration: 1049, pt maintained on 1:1 supervision. Sqe notified of medication restraint. Original Note: Pt floridly psychotic refusing oral medication after multiple attempts. Ativan IM 1mg administered secondary to refusal of medically necessary medication.
[2021-09-10 15:31] LABS: Hematocrit 40.8 % (37.0-47.0); Hemoglobin 13.5 g/dl (12.0-16.0); Mean Corpuscular HGB Conc 33.1 g/dl (31.0-35.0); Mean Corpuscular Hemoglobin 30.1 pg (27.0-33.0); Mean Corpuscular Volume 91.1 fL (80.0-98.0); Mean Platelet Volume 8.9 fL (9.4-12.3); Platelet Count 277 X10*3/uL (160-400); Red Blood Count 4.48 X10*6/uL (4.20-5.50); Red Cell Distribution Width 12.8 % (11.0-16.0); White Blood Count 7.8 X10*3/uL (4.8-10.8)
[2021-09-10 15:45] LABS: INTERNATIONAL NORM RATIO 1.3 (0.9-1.1); Prothrombin Time 14.3 SEC (9.9-13.0)
[2021-09-10 15:52] LABS: Alanine Aminotransferase 13 U/L (0-31); Albumin Level 4.3 g/dL (3.5-5.0); Alkaline Phosphatase 144 U/L (39-117); Anion Gap 14 (12-20); Aspartate Amino Transferase 22 U/L (5-31); Bilirubin Total 0.5 mg/dL (0.0-1.0); Blood Urea Nitrogen 31 mg/dL (9-16); Calcium 10.2 mg/dL (8.4-10.2); Carbon Dioxide 24 mmol/L (22-29); Chloride 105 mmol/L (96-108); Creatinine Clr Calc Pharmacy 75.8; Estimated Glomerular Filt Rate > 60; Glucose Random 98 mg/dL (60-115); Potassium 4.1 mmol/L (3.3-5.1); Sodium 139 mmol/L (135-145); Total Protein 7.8 g/dL (6.5-8.0)
[2021-09-10 21:44] VITALS: BP 162/92; PULSE 96; TEMP 36.8; O2SAT 97
[2021-09-11 06:00] VITALS: BP 152/88; PULSE 98; RESP 16; TEMP 36.7; O2SAT 97
--- NOTE | 2021-09-11 10:45 | HO.PSYCHPN ---
Subjective Subjective Date of Service: 09/11/21 Reason For Visit: Psychosis Subjective Notes: Section 8 Interim History: Pt continues to be disoriented, confused, preoccupied with internal stimuli, psychotic, combative at times. accepted luvenox SC but refused PO meds. making statements that she is fearful, afraid someone will shoot her, stating she is in snf Medication Compliance: Intermittent Side effects from medications: No Attending Groups: No Review of Systems Acute medical concerns: Yes left tibial DVT Medical Review of Systems: unchanged Review of Systems Review of Systems Pt medically cleared in the ED; left tibial DVT Yes all other systems are reviewed and are negative Constitutional: Reports no additional constitutional complaints, Denies body ache(s), Denies chills, Reports difficulty sleeping, Denies fever(s), Denies headache(s), Reports poor appetite and Denies weakness Eyes: Reports no additional eye complaints and Denies change in vision Reports system reviewed and no additional complaints, except as documented, Denies dizziness, Denies headache(s), Denies nasal congestion, Denies nasal discharge and Denies neck pain Cardiovascular: Reports no additional cardiovascular complaints, Denies chest pain, Denies leg edema and Denies dyspnea Respiratory: Reports no additional respiratory complaints, Denies cough and Denies dyspnea Gastrointestinal: Reports no additional gastrointestinal complaints, Denies abdominal pain, Denies diarrhea, Denies nausea and Denies vomiting Musculoskeletal: Reports no additional musculoskeletal complaints, Denies back pain, Denies arthralgias, Denies joint swelling, Denies neck pain, Denies numbness and Denies tingling Skin/Breast: Reports system reviewed and no additional complaints, except as docu and Denies rash Reports system reviewed and no additional complaints, except as documented, Denies Abnormal speech present, Denies dizziness, Denies headache(s), Denies numbness, Denies tingling and Denies weakness Psychiatric: Reports anxiety, Reports depression, Denies visual hallucinations, Denies hallucinations, Denies homicidal ideation and Denies suicidal ideation Mental Status Exam Mental Status Exam Narrative: Pt is alert, however she is not oriented to situation, place, time. She is in hospital attire, up walking on unit, staring blankly, disorganized, refsing care, poor eye contact, inattentive. stating she is going to be shot, stating she is in snf, fearful, uncooperative, difficult to calm, No Tics or Tremors. No abnormal involuntary movements.. Patient Appearance: Disheveled Diagnostics Vital Signs (24Hr): Vital Signs - 24 hr 09/10/21 21:44 09/11/21 06:00 Temperature 98.2 F 98.1 F Pulse Rate 96 98 Respiratory Rate 16 Blood Pressure 162/92 H 152/88 H Pulse Oximetry 97 97 BMI result Body Mass Index 25.4 Labs Results: 09/10/21 15:18 09/10/21 15:18 Labs: Laboratory Results - last 48 hr 09/09/21 09/09/21 09/09/21 09:23 21:12 21:12 WBC 9.2 RBC 4.33 Hgb 13.0 Hct 39.1 MCV 90.3 MCH 30.0 MCHC 33.2 RDW 12.5 Plt Count 261 MPV 8.8 L Absolute Nucleated RBC 0.000 Nucleated RBC % (auto) 0.0 PT 13.8 H INR 1.2 H APTT 36.9 Sodium Potassium Chloride Carbon Dioxide Anion Gap BUN Creatinine Estim Creat Clear Calc Estimated GFR Random Glucose Calcium Total Bilirubin AST ALT Alkaline Phosphatase Total Protein Albumin COVID-19 ([facility]ANNE) Negative COVID-19 Clin Com See Note 09/10/21 09/10/21 09/10/21 15:18 15:18 15:18 WBC 7.8 RBC 4.48 Hgb 13.5 Hct 40.8 MCV 91.1 MCH 30.1 MCHC 33.1 RDW 12.8 Plt Count 277 MPV 8.9 L Absolute Nucleated RBC 0.000 Nucleated RBC % (auto) 0.0 PT 14.3 H INR 1.3 H APTT Sodium 139 Potassium 4.1 Chloride 105 Carbon Dioxide 24 Anion Gap 14 BUN 31 H D Creatinine 0.77 Estim Creat Clear Calc 75.8 Estimated GFR > 60 Random Glucose 98 Calcium 10.2 D Total Bilirubin 0.5 AST 22 ALT 13 Alkaline Phosphatase 144 H Total Protein 7.8 Albumin 4.3 COVID-19 ([facility]NE) COVID-19 Clin Com Medications Medications Current Medications Acetaminophen (Acetaminophen 325 Mg Tablet) 650 mg PO Q6H PRN PRN Reason: Fever Or Pain Al Hydroxide/Mg Hydroxide (Magnesium Hydrox/Alum Hydrox 30 Ml Oral.Susp) 30 ml PO Q6H PRN PRN Reason: Heartburn/Nausea Apixaban (Apixaban 5 Mg Tablet) 5 mg PO BID [facility] Apixaban (Apixaban 5 Mg Tablet) 10 mg PO BID [facility] Stop: 09/13/21 22:00 Last Admin: 09/09/21 08:04 Dose: 10 mg Documented by: Calcium Carbonate/Cholecalciferol (Calcium + Vitamin D 250 Mg Tablet) 250 mg PO DAILY [facility] Last Admin: 09/11/21 10:31 Dose: Not Given Documented by: Docusate Sodium (Docusate Sodium 100 Mg Capsule) 100 mg PO BID [facility] Last Admin: 09/11/21 10:31 Dose: Not Given Documented by: Enoxaparin Sodium (Enoxaparin Sodium 80 Mg/0.8 Ml Syringe) 70 mg SUBCUT Q12H [facility] Last Admin: 09/10/21 22:29 Dose: 70 mg Documented by: Fluticasone Propionate (Fluticasone Propionate Nasal 16 Gm [place]) 1 spray NOSTRIL-B DAILY PRN PRN Reason: Allergy Symptoms Gabapentin (Gabapentin 400 Mg Capsule) 800 mg PO BEDTIME [facility] Last Admin: 09/10/21 21:25 Dose: Not Given Documented by: Lactulose (Lactulose 20 Gm/30 Ml Solution) 10 gm PO BID PRN PRN Reason: constipation Loratadine (Loratadine 10 Mg Tablet) 10 mg PO DAILY PRN PRN Reason: Allergy Symptoms Lorazepam (Lorazepam 1 Mg Tablet) 1 mg PO Q6H PRN PRN Reason: catatonic Magnesium Hydroxide (Milk Of Magnesia 30 Ml Oral.Susp) 30 ml PO DAILY PRN PRN Reason: Constipation Melatonin (Melatonin 3 Mg Tablet) 9 mg PO BEDTIME [facility] Last Admin: 09/10/21 21:26 Dose: Not Given Documented by: Multivitamins/Vitamin C (Multivitamin Tablet) 1 tab PO DAILY [facility] Last Admin: 09/11/21 10:31 Dose: Not Given Documented by: Omeprazole (Omeprazole 20 Mg Capsule.Dr) 20 mg PO BID@0630,1630 [facility] Last Admin: 09/11/21 08:55 Dose: Not Given Documented by: Oxycodone HCl (Oxycodone Hcl Er 10 Mg Tab.Er.12h) 10 mg PO Q12H [facility] Last Admin: 09/11/21 08:55 Dose: Not Given Documented by: Oxycodone HCl (Oxycodone Hcl Immed Release 5 Mg Tablet) 5 mg PO Q6H PRN PRN Reason: Pain, Mild (Pain Scale 1-3) Quetiapine Fumarate (Quetiapine Fumarate 100 Mg Tablet) 100 mg PO BEDTIME PRN PRN Reason: Insomnia Quetiapine Fumarate (Quetiapine Fumarate 400 Mg Tablet) 400 mg PO BEDTIME [facility] Last Admin: 09/10/21 22:34 Dose: Not Given Documented by: Trazodone HCl (Trazodone Hcl 50 Mg Tablet) 50 mg PO BEDTIME PRN PRN Reason: Insomnia Allergies Allergies Allergy/AdvReac Type Severity Reaction Status Date / Time bee pollen Allergy Severe Anaphylaxis Verified 08/25/21 12:46 levofloxacin [From Levaquin] Allergy Severe Itching Verified 08/25/21 12:46 Penicillins Allergy Unknown Unknown Verified 08/25/21 12:46 Assessment & Plan Assessment & Plan (1) Bipolar 1 disorder: Status: Acute Code(s): F31.9 - Bipolar disorder, unspecified (2) VITO (generalized anxiety disorder): Status: Acute Code(s): F41.1 - Generalized anxiety disorder Plan Steffi is a 65 y.o. female who carries a dx of VITO, bipolar I disorder, and has hx of ECT treatment. She recently underwent a successful left total knee arthroplasty on 08/09/[address] Hudson. She presented to [facility] on 09/08/21 from [facility] via EMS due to presenting as delusional, disorganized, confused, and self dialoguing. Prior to her knee surgery, pt was able to care for herself independently at home. There is a questions of med non-adherence. In the ED pt was refusing all care, non-adherent with PO meds, and unable to provide RN with a urine sample. She eventually required a straight cath and urinalysis was negative.? Plan: 1:1 safety checks, 12b Monitor response to medications. Monitor for safety in the milieu. Discharge upon stabilization. Patient seen. Chart reviewed. Discussed with team. awaiting CT scan results seroquel HS dose reduced as pt not consistently taking Encourage PO Ativan and Po meds I spent ___15___ minutes with the patient and/or on the patient floor today, greater than?50% of which was spent counseling/coordinating care. Patient educated on: medication risk/benefits and therapeutic strategies Informed Consent: does not understand Reason for contiued inpatient stay Substantial Risk for: harm to self, inability to function, rapid decompensation and med/psych decompensation
[2021-09-11] MEDS: Enoxaparin Sodium 80 MG/0.8 ML SYRINGE 70 MG SUBCUT (10:52)
[2021-09-11 18:00] VITALS: BP 134/82; PULSE 102; RESP 18; TEMP 36.7; O2SAT 96
[2021-09-11 20:00] VITALS: BP 140/90; PULSE 101; RESP 16; TEMP 36.8; O2SAT 98
[2021-09-11] MEDS: diphenhydrAMINE HCl 12.5 MG/5 ML LIQUID 50 MG PO (22:51)
[2021-09-12] VITALS: RESP 16
[2021-09-12 04:00] VITALS: RESP 18
--- NOTE | 2021-09-12 06:37 | PC.NURSE ---
Patient has red, slightly raised, small bumps on bilateral arms and chest. Similar in appearance to hives, or urticaria. MD notified. Patient has been placed on vitals Q4, with visual inspection of rash. Patient was also given 50mg diphehydramine with mild to moderate effect.
[2021-09-12 07:50] VITALS: BP 131/90; PULSE 105; RESP 18; TEMP 36.2; O2SAT 97
--- NOTE | 2021-09-12 11:01 | PC.NURSE ---
Late entry: Patient w/ rash red, raised over arms, legs, and neck. No swelling noted of mouth or tongue; no resp distress noted or reported.Dr abdi notified- attempted to give Benadryl Po per order several times w/ two different providers- patient declined. Dr Abdi notified. Patient continues to have eccentric responses- states without being asked 'I was born in [place]... and repeated sighs, states 'I can't when offered medications PO. Patient seen by hospitalist.
[2021-09-12] MEDS: diphenhydrAMINE HCL 50 MG/ML VIAL 25 MG IM (11:14)
[2021-09-12] MEDS: LORazepam 2 MG/ML VIAL IM (11:14)
--- NOTE | 2021-09-12 11:29 | PM.IMCN ---
History of Present Illness Data of Consult Service Date: 09/12/21 Primary Care Provider: Unknown Physician HPI Reason for consult: Rash while on lovenox This is a 65 year old female with a recently diagnosed DVT of the LLE (on 09/05/20) who is admitted to the inpatient psychatric unit. Medical consult is requested after she developed a rash. Chart reviewed. It appears that the patient had an elective L TKR in Aug 23 and was discharged to SNF on 08/13/21. She was discharged on ASA for DVT pptx. She had a f/u with the ortho clinic on 08/25/21 where the darlene were removed and she was to f/u in 4 weeks. She presented to [facility] ED again on 09/05/20 for LLE pain and was diagnosed with a L tibial DVT. She was transferred to SNF after that ED visit. She was sent on Eliquis. She presented back to [facility] ED on 09/08/21 with psychiatric symptoms and was admitted to the inpatient psych unit. She initially took her PO eliquis but at some point, she refused and was started on Lovenox. First dose appears to be given on the evening of 09/09/21 evening. It appears that over the last 24 hours (starting 09/11/21 AM) she began developing a rash on the torso and bilateral UE, hence the reason for his consult. Patient is seen and examined on M3, exam room. medical staff credentialing coordinator on the floor is in the room. The patient reports that she knows that she has a blood clot in the LLE and thinks she will lose her leg / require surgery. She asks if the clot will be able to be treated. She otherwise appears to be fearful / paranoid. Review of Systems Review of Systems: unable to complete fully due to the patients psychiatric decompensation [facility] Medical History Anxiety Bipolar 1 disorder Constipation GERD (gastroesophageal reflux disease) History of electroconvulsive therapy Hx of skin cancer, basal cell Hx of thyroid nodule Insomnia Murmur, cardiac Osteopenia Seasonal allergies Pertinent family history: unable to obtain family history due to patients psychiatric decompensation Surgical History H/O elbow surgery History of back surgery Hx of colonoscopy Social History Housing: Assisted Living Facility Are you a primary critical care registered nurse to a significant other at home: No Do you presently have visiting nurse or other home services: Yes ([employer] 3 hours once a week) Unable to assess alcohol history related to: Unable to respond Patient Tobacco Use Status: Former Tobacco user Quit Date: 06/20/2021 cigarettes Tobacco use type: Cigarette Years Smoked: 30+, now vapes Use of substances other than those prescribed or required for medical reasons: Unknown Currently Displaying Signs/Symptoms of Drug Intoxication Withdrawal: No Spiritual Healthcare Practices: Unclear. Patient remained silent, unable to participate in assessment. Gnosticist Healthcare Practices: Unclear. Patient remained silent, unable to participate in assessment. Cultural Healthcare Practices: Unclear. Patient remained silent, unable to participate in assessment. 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 presenting disorganized behavior when being interviewed. Meds Allergies Allergy/AdvReac Type Severity Reaction Status Date / Time bee pollen Allergy Severe Anaphylaxis Verified 08/25/21 12:46 levofloxacin [From Levaquin] Allergy Severe Itching Verified 08/25/21 12:46 Penicillins Allergy Unknown Unknown Verified 08/25/21 12:46 Active Medications: Current Medications Acetaminophen (Acetaminophen 325 Mg Tablet) 650 mg PO Q6H PRN PRN Reason: Fever Or Pain Al Hydroxide/Mg Hydroxide (Magnesium Hydrox/Alum Hydrox 30 Ml Oral.Susp) 30 ml PO Q6H PRN PRN Reason: Heartburn/Nausea Apixaban (Apixaban 5 Mg Tablet) 5 mg PO BID [facility] Apixaban (Apixaban 5 Mg Tablet) 10 mg PO BID [facility] Stop: 09/13/21 22:00 Last Admin: 09/09/21 08:04 Dose: 10 mg Documented by: Calcium Carbonate/Cholecalciferol (Calcium + Vitamin D 250 Mg Tablet) 250 mg PO DAILY [facility] Last Admin: 09/11/21 10:31 Dose: Not Given Documented by: Docusate Sodium (Docusate Sodium 100 Mg Capsule) 100 mg PO BID [facility] Last Admin: 09/11/21 23:05 Dose: Not Given Documented by: Fluticasone Propionate (Fluticasone Propionate Nasal 16 Gm [place]) 1 spray NOSTRIL-B DAILY PRN PRN Reason: Allergy Symptoms Gabapentin (Gabapentin 400 Mg Capsule) 800 mg PO BEDTIME [facility] Last Admin: 09/11/21 23:06 Dose: Not Given Documented by: Lactulose (Lactulose 20 Gm/30 Ml Solution) 10 gm PO BID PRN PRN Reason: constipation Loratadine (Loratadine 10 Mg Tablet) 10 mg PO DAILY PRN PRN Reason: Allergy Symptoms Lorazepam (Lorazepam 1 Mg Tablet) 1 mg PO Q6H PRN PRN Reason: catatonic Magnesium Hydroxide (Milk Of Magnesia 30 Ml Oral.Susp) 30 ml PO DAILY PRN PRN Reason: Constipation Melatonin (Melatonin 3 Mg Tablet) 9 mg PO BEDTIME [facility] Last Admin: 09/11/21 23:06 Dose: Not Given Documented by: Multivitamins/Vitamin C (Multivitamin Tablet) 1 tab PO DAILY [facility] Last Admin: 09/11/21 10:31 Dose: Not Given Documented by: Omeprazole (Omeprazole 20 Mg Capsule.Dr) 20 mg PO BID@0630,1630 [facility] Last Admin: 09/11/21 17:33 Dose: Not Given Documented by: Oxycodone HCl (Oxycodone Hcl Er 10 Mg Tab.Er.12h) 10 mg PO Q12H [facility] Last Admin: 09/11/21 23:05 Dose: Not Given Documented by: Oxycodone HCl (Oxycodone Hcl Immed Release 5 Mg Tablet) 5 mg PO Q6H PRN PRN Reason: Pain, Mild (Pain Scale 1-3) Quetiapine Fumarate (Quetiapine Fumarate 100 Mg Tablet) 100 mg PO BEDTIME PRN PRN Reason: Insomnia Quetiapine Fumarate (Quetiapine Fumarate 400 Mg Tablet) 400 mg PO BEDTIME [facility] Last Admin: 09/11/21 23:06 Dose: Not Given Documented by: Trazodone HCl (Trazodone Hcl 50 Mg Tablet) 50 mg PO BEDTIME PRN PRN Reason: Insomnia Home Medications Medication Instructions Recorded Confirmed Last Taken Type omeprazole 20 mg capsule,delayed 20 mg PO BID 05/09/21 09/08/21 08/09/21 History release biotin 5,000 mcg sublingual tablet 5,000 mcg SUBLINGUAL DAILY 07/21/21 09/08/21 Unknown History calcium carbonate 600 mg-vitamin 1 tab PO DAILY #0 07/21/21 09/08/21 Unknown History D3 5 mcg (200 unit) tablet docusate sodium 100 mg capsule 1 cap PO BID 07/21/21 09/08/21 Unknown History fluticasone propionate 50 1 spray INTRANASAL DAILY PRN 07/21/21 09/08/21 Unknown History mcg/actuation nasal spray,suspension gabapentin 400 mg capsule 800 mg PO BEDTIME 07/21/21 09/08/21 Unknown History loratadine 10 mg tablet (Claritin) 10 mg PO DAILY PRN 07/21/21 09/08/21 Unknown History melatonin 5 mg tablet 10 mg PO BEDTIME 07/21/21 09/08/21 08/09/21 History multivitamin 1 tab PO DAILY 07/21/21 09/08/21 Unknown History quetiapine 400 mg tablet 800 mg PO BEDTIME 07/21/21 09/08/21 Unknown History lactulose 10 gram/15 mL oral 15 ml PO BID PRN 09/05/21 09/08/21 Unknown History solution lorazepam 0.5 mg tablet 1 tab PO BEDTIME PRN 09/05/21 09/08/21 Unknown History quetiapine 100 mg tablet 100 mg PO BEDTIME PRN 09/05/21 09/08/21 Unknown History acetaminophen 325 mg tablet 650 mg PO Q6H PRN 09/08/21 09/08/21 Unknown History apixaban 5 mg (74 tabs) tablets in 10 mg PO BID 09/08/21 09/08/21 Unknown History a dose pack (Eliquis DVT-PE Treat 30D Start) apixaban 5 mg tablet 5 mg PO BID 09/08/21 09/08/21 Unknown History lorazepam 0.5 mg tablet (Ativan) 0.5 mg PO Q6H PRN 09/08/21 09/08/21 Unknown History oxycodone 10 mg tablet,crush 10 mg PO Q12H 09/08/21 09/08/21 Unknown History resistant,extended release 12 hr (OxyContin) oxycodone 5 mg tablet 5 mg PO Q4H PRN 09/08/21 09/08/21 Unknown History Physical Exam Vital Signs and Narrative: Vital Signs: Last Vital Signs Temp 97.2 F 09/12/21 07:50 Pulse 105 H 09/12/21 07:50 Resp 18 09/12/21 07:50 BP 131/90 H 09/12/21 07:50 Pulse Ox 97 09/12/21 07:50 BMI result Body Mass Index 25.4 Const: Other: General - awake and alert, talking and ambulating on the floor; insight seems poor CVS - S1S2 Lungs - clear, no wheezing, no respiratory distress Skin -- diffuse b/l UE and torso rash, expanding to the back region; does not appear infected Psych -- poor insight Results Labs CBC and Chem 7: 09/10/21 15:18 09/10/21 15:18 Assessment and Plan (1) Diffuse papular rash: Status: Acute Plan This is a 65 yo F with a L TKA last month who developed a LLE DVT, diagnosed about 1 week ago. She was treated with Eliquis initially but once she refused PO intake, she was switched to Lovenox and has gone on to develop a rash, hence the rason for this consult. 1. Diffuse Rash Primarily on the torso, back and b/l UE suspected secondary to Lovenox -- discontinued 1 dose of prednisone + pepcid will check ESR, CR, cbc and bmp 2. Acute DVT, diagnosed 1 week ago Eliquis -- hopefully the patient can be convinced to take her Eliquis -- limited options given on suspected rash on body may need hematology consult for possible alternatives if she continues to not take PO Will Follow along with you
[2021-09-12] MEDS: Apixaban 5 MG TABLET 10 MG PO ×2 (12:15→22:23)
[2021-09-12] MEDS: predniSONE 20 MG TABLET 40 MG PO (12:18)
[2021-09-12] MEDS: Famotidine 20 MG TABLET PO (12:18)
[2021-09-12 12:31] LABS: MANUAL DIFF FLAG NO
[2021-09-12 12:35] LABS: Basophils Percent Auto 0.1 % (0-2); Eosinophils Percent Auto 0.4 % (0-4); Hemoglobin 15.4 g/dl (12.0-16.0); Imm Gran Abs Auto 0.03 X10*3/uL (0.00-0.03); Imm Gran Pct Auto 0.3 % (0.0-0.4); Lymphocytes Absolute Auto 0.8 X10*3/uL (1.2-4.9); Lymphocytes Percent Auto 8.2 % (20-40); Mean Corpuscular HGB Conc 32.8 g/dl (31.0-35.0); Mean Corpuscular Hemoglobin 30.4 pg (27.0-33.0); Mean Corpuscular Volume 92.9 fL (80.0-98.0); Mean Platelet Volume 9.2 fL (9.4-12.3); Monocytes Absolute Auto 0.5 X10*3/uL (0.1-1.2); Monocytes Percent Auto 4.9 % (2-11); Neutrophils Absolute Auto 8.7 x10*3/uL (2.0-8.3); Neutrophils Percent Auto 86.1 % (45-73); Platelet Count 315 X10*3/uL (160-400); Red Blood Count 5.06 X10*6/uL (4.20-5.50); Red Cell Distribution Width 13.2 % (11.0-16.0); White Blood Count 10.1 X10*3/uL (4.8-10.8)
[2021-09-12] MEDS: QUEtiapine Fumarate 100 MG TABLET PO (12:35)
[2021-09-12 12:56] LABS: Anion Gap 20 (12-20); Blood Urea Nitrogen 55 mg/dL (9-16); C Reactive Protein 0.81 mg/dL (< or = 0.50); Calcium 10.9 mg/dL (8.4-10.2); Carbon Dioxide 21 mmol/L (22-29); Chloride 110 mmol/L (96-108); Creatinine Clr Calc Pharmacy 53.6; Estimated Glomerular Filt Rate 51; Glucose Random 145 mg/dL (60-115); Potassium 4.2 mmol/L (3.3-5.1); Sodium 147 mmol/L (135-145)
--- NOTE | 2021-09-12 13:03 | PC.NURSE ---
Late entry: After receiving IM injection of Benadryl for rash, and Lorazepam for catatonia, patient became much less guarded, appeared brighter. Patient allowed staff to toilet her for large amount of urine, and drank approx 20 oz water. She also accepted PO eliquis, pepcid, and prednisone. Patient continues to be disorganized, speech clear but content random, disconnected. Patient states he sister is mocking her, as are two male acquaintances. Patient reassured, redirected. Reviewed w/ Dr. Meredith. Seroquel 100 mg given as ordered. Patient accepted medication, but chewed on tablet.
--- NOTE | 2021-09-12 13:05 | HO.PSYCHPN ---
Subjective Subjective Date of Service: 09/12/21 Reason For Visit: Psychosis Interim History: pt somewhat interactive this morning, but does reliably become frozen mid-sentence repeatedly throughout interaction. c/o her thoughts racing. indicates she is unable to take medication by mouth but appears to accept it IM. she was given 50 mg benadryl IM and 2 mg ativan IM this morning with good effect, per nursing staff, who were able to give her the rest of her medications by mouth an hour or so after she got the IMs. per staff, section 12b matures sunday. slept 8 hours last night, on 1:1 for fall risk. disorganized, catatonic. got ativan 1 mg IM x2 sunday and then ativan 1 mg IM x1 sunday. last ate or drank any substantial amount on sunday. lovenox seems to have caused a rash and so was DCed and replaced with eliquis. rash was noted last evening around [address] scan pending. Mental Status Exam Mental Status Exam Narrative: Pt is alert, intermittently. also periods of frozen behavior. She is in hospital attire, up walking on unit with assistance, staring blankly, disorganized, unable to collaborate in her care, fair eye contact, variably attentive. calm. no requests or complaints. on being asked to take PO medications she replies that she cannot; she is unable to explain the reason. MD informs her we will give her the medication IM, to which she responds, you gotta do what you gotta do. Patient Appearance: Disheveled Diagnostics Vital Signs (24Hr): Vital Signs - 24 hr 09/11/21 18:00 09/11/21 20:00 09/12/21 00:00 Temperature 98.0 F 98.2 F Pulse Rate 102 H 101 H Respiratory Rate 18 16 16 Blood Pressure 134/82 140/90 H Pulse Oximetry 96 98 09/12/21 04:00 09/12/21 07:50 Temperature 97.2 F Pulse Rate 105 H Respiratory Rate 18 18 Blood Pressure 131/90 H Pulse Oximetry 97 BMI result Body Mass Index 25.4 Labs Results: 09/12/21 12:24 09/12/21 12:24 Labs: Laboratory Results - last 48 hr 09/10/21 09/10/21 09/10/21 15:18 15:18 15:18 WBC 7.8 RBC 4.48 Hgb 13.5 Hct 40.8 MCV 91.1 MCH 30.1 MCHC 33.1 RDW 12.8 Plt Count 277 MPV 8.9 L Immature Gran % (Auto) Neut % (Auto) Lymph % (Auto) [place] % (Auto) Eos % (Auto) Baso % (Auto) Lymph # (Auto) [place] # (Auto) Eos # (Auto) Baso # (Auto) Abs Immat Gran (auto) Absolute Neuts (auto) Absolute Nucleated RBC 0.000 Nucleated RBC % (auto) 0.0 PT 14.3 H INR 1.3 H Sodium 139 Potassium 4.1 Chloride 105 Carbon Dioxide 24 Anion Gap 14 BUN 31 H D Creatinine 0.77 Estim Creat Clear Calc 75.8 Estimated GFR > 60 Random Glucose 98 Calcium 10.2 D Total Bilirubin 0.5 AST 22 ALT 13 Alkaline Phosphatase 144 H C-Reactive Protein Total Protein 7.8 Albumin 4.3 09/12/21 09/12/21 12:24 12:24 WBC 10.1 RBC 5.06 Hgb 15.4 Hct 47.0 MCV 92.9 MCH 30.4 MCHC 32.8 RDW 13.2 Plt Count 315 MPV 9.2 L Immature Gran % (Auto) 0.3 Neut % (Auto) 86.1 H Lymph % (Auto) 8.2 L [place] % (Auto) 4.9 Eos % (Auto) 0.4 Baso % (Auto) 0.1 Lymph # (Auto) 0.8 L [place] # (Auto) 0.5 Eos # (Auto) 0.0 Baso # (Auto) 0.0 Abs Immat Gran (auto) 0.03 Absolute Neuts (auto) 8.7 H Absolute Nucleated RBC 0.000 Nucleated RBC % (auto) 0.0 PT INR Sodium 147 H Potassium 4.2 Chloride 110 H Carbon Dioxide 21 L Anion Gap 20 BUN 55 H D Creatinine 1.09 Estim Creat Clear Calc 53.6 Estimated GFR 51 Random Glucose 145 H Calcium 10.9 H D Total Bilirubin AST ALT Alkaline Phosphatase C-Reactive Protein 0.81 H Total Protein Albumin Medications Medications Current Medications Acetaminophen (Acetaminophen 325 Mg Tablet) 650 mg PO Q6H PRN PRN Reason: Fever Or Pain Al Hydroxide/Mg Hydroxide (Magnesium Hydrox/Alum Hydrox 30 Ml Oral.Susp) 30 ml PO Q6H PRN PRN Reason: Heartburn/Nausea Apixaban (Apixaban 5 Mg Tablet) 5 mg PO BID [facility] Apixaban (Apixaban 5 Mg Tablet) 10 mg PO BID [facility] Stop: 09/13/21 21:00 Last Admin: 09/12/21 12:15 Dose: 10 mg Documented by: Calcium Carbonate/Cholecalciferol (Calcium + Vitamin D 250 Mg Tablet) 250 mg PO DAILY [facility] Last Admin: 09/12/21 11:38 Dose: Not Given Documented by: Docusate Sodium (Docusate Sodium 100 Mg Capsule) 100 mg PO BID [facility] Last Admin: 09/12/21 11:38 Dose: Not Given Documented by: Fluticasone Propionate (Fluticasone Propionate Nasal 16 Gm [place]) 1 spray NOSTRIL-B DAILY PRN PRN Reason: Allergy Symptoms Gabapentin (Gabapentin 400 Mg Capsule) 800 mg PO BEDTIME [facility] Last Admin: 09/11/21 23:06 Dose: Not Given Documented by: Lactulose (Lactulose 20 Gm/30 Ml Solution) 10 gm PO BID PRN PRN Reason: constipation Loratadine (Loratadine 10 Mg Tablet) 10 mg PO DAILY PRN PRN Reason: Allergy Symptoms Lorazepam (Lorazepam 1 Mg Tablet) 1 mg PO Q6H PRN PRN Reason: catatonic Lorazepam (Lorazepam 1 Mg Tablet) 2 mg PO TID [facility] Magnesium Hydroxide (Milk Of Magnesia 30 Ml Oral.Susp) 30 ml PO DAILY PRN PRN Reason: Constipation Melatonin (Melatonin 3 Mg Tablet) 9 mg PO BEDTIME [facility] Last Admin: 09/11/21 23:06 Dose: Not Given Documented by: Multivitamins/Vitamin C (Multivitamin Tablet) 1 tab PO DAILY [facility] Last Admin: 09/12/21 11:39 Dose: Not Given Documented by: Omeprazole (Omeprazole 20 Mg Capsule.Dr) 20 mg PO BID@0630,1630 [facility] Last Admin: 09/12/21 11:36 Dose: Not Given Documented by: Oxycodone HCl (Oxycodone Hcl Er 10 Mg Tab.Er.12h) 10 mg PO Q12H [facility] Last Admin: 09/12/21 11:37 Dose: Not Given Documented by: Oxycodone HCl (Oxycodone Hcl Immed Release 5 Mg Tablet) 5 mg PO Q6H PRN PRN Reason: Pain, Mild (Pain Scale 1-3) Quetiapine Fumarate (Quetiapine Fumarate 100 Mg Tablet) 100 mg PO BEDTIME PRN PRN Reason: Insomnia Quetiapine Fumarate (Quetiapine Fumarate 400 Mg Tablet) 400 mg PO BEDTIME [facility] Last Admin: 09/11/21 23:06 Dose: Not Given Documented by: Trazodone HCl (Trazodone Hcl 50 Mg Tablet) 50 mg PO BEDTIME PRN PRN Reason: Insomnia Allergies Allergies Allergy/AdvReac Type Severity Reaction Status Date / Time bee pollen Allergy Severe Anaphylaxis Verified 08/25/21 12:46 levofloxacin [From Levaquin] Allergy Severe Itching Verified 08/25/21 12:46 Penicillins Allergy Unknown Unknown Verified 08/25/21 12:46 Assessment & Plan Assessment & Plan (1) Diffuse papular rash: Status: Acute Code(s): R21 - Rash and other nonspecific skin eruption Assessment and Plan: This is a 65 yo F with a L TKA last month who developed a LLE DVT, diagnosed about 1 week ago. She was treated with Eliquis initially but once she refused PO intake, she was switched to Lovenox and has gone on to develop a rash, hence the rason for this consult. 1. Diffuse Rash Primarily on the torso, back and b/l UE suspected secondary to Lovenox -- discontinued 1 dose of prednisone + pepcid will check ESR, CR, cbc and bmp 2. Acute DVT, diagnosed 1 week ago Eliquis -- hopefully the patient can be convinced to take her Eliquis -- limited options given on suspected rash on body may need hematology consult for possible alternatives if she continues to not take PO Will Follow along with you (2) Acute deep vein thrombosis (DVT) of left tibial vein: Status: Acute Code(s): I82.442 - Acute embolism and thrombosis of left tibial vein (3) Bipolar 1 disorder: Status: Acute Code(s): F31.9 - Bipolar disorder, unspecified Assessment and Plan: catatonia Plan ativan 2 mg TID for catatonia give usual home meds in addition if able. eliquis for DVT, as indicated above. pt appears to have improved enough this morning to take PO meds after having received a 2 mg ativan IM. continue ativan to allow pt to clear enough to take PO meds. if she is unable to for a prolonged period may have to investigate other options for anti-coagulation. I spent ___35___ minutes with the patient and/or on the patient floor today, greater than?50% of which was spent counseling/coordinating care. Reason for contiued inpatient stay Substantial Risk for: harm to self and inability to function
[2021-09-12 13:21] LABS: Erythrocyte Sedimentation Rate 23 MM/HR (0-20)
[2021-09-12] MEDS: LORazepam 1 MG TABLET 2 MG PO ×2 (14:52→22:25)
--- NOTE | 2021-09-12 15:07 | PC.NURSE ---
Patient resting, easily awakened, drank 16 oz water and accepted PO ativan as ordered. Patient ambulated w/ 2 assist to the bathroom, voided large amount. Patient appears slightly less disorganized and anxious.
[2021-09-12 15:15] VITALS: BP 125/70; PULSE 95; RESP 18; TEMP 36.8; O2SAT 98
--- NOTE | 2021-09-12 19:14 | PC.NURSE ---
Patient ate full meal, drank 2 containers of orange juice. Patient increasingly able to respond appropriately, able to state that she is at [facility]. Ambulated to bathroom, voided x1.
[2021-09-12 20:00] VITALS: BP 123/70; PULSE 100; RESP 18; TEMP 36.6; O2SAT 98
[2021-09-12] MEDS: Gabapentin 400 MG CAPSULE 800 MG PO (22:22)
[2021-09-12] MEDS: oxyCODONE HCl ER 10 MG TAB.ER.12H PO (22:23)
[2021-09-12] MEDS: Docusate Sodium 100 MG CAPSULE PO (22:24)
[2021-09-12] MEDS: QUEtiapine Fumarate 400 MG TABLET PO (22:24)
[2021-09-12] MEDS: Melatonin 3 MG TABLET 9 MG PO (22:24)
[2021-09-13] VITALS: RESP 16
[2021-09-13 04:00] VITALS: RESP 16
[2021-09-13 08:00] VITALS: BP 116/78; PULSE 76; RESP 18; TEMP 36.3; O2SAT 100
[2021-09-13] MEDS: LORazepam 1 MG TABLET 2 MG PO ×3 (11:26→20:40)
[2021-09-13] MEDS: Apixaban 5 MG TABLET 10 MG PO (11:27)
--- NOTE | 2021-09-13 12:56 | PC.NURSE ---
Late entry: On arrival, patient was sedated, difficult to rouse, unable to accept any medications. resp unlabored. Dr Meredith notified that patient was too sedated to receive medications initially. By mid morning, patient became slightly more alert, speech continues to be garbled at times, patient appears to be paranoid 'I don't want to be poisoned,' and appears to have VH of her family in the room, to whom she was speaking. Patient oriented to year, but not to place 'I'm in a senior care...in [place],' and responds to her name when called. Patient accepted the Eliquis and Lorazepam, declined everything else. Patient frequently encouraged to drink fluids, and eat, but drinking sips only. Patient did agree to CT scan, and returned w/o incident. Patient unable to process offer of flu vaccination at this time but did state ' you have a needle' and appeared concerned. Will postpone flu vaccination at this time.
[2021-09-13 15:06] VITALS: BP 118/64; PULSE 85; RESP 18; O2SAT 99
--- NOTE | 2021-09-13 15:39 | P.PNPSI_ITS ---
Subjective Subjective Date of Service: 09/13/21 Reason For Visit: Psychosis Interim History: pt seated on bed, uttering non sequiturs and tangents. rash appears mildly improved compared to yesterday. irritable, declining to be fed by 1:1, declining to drink saying the water smells bad. per labs review, kidneys at risk per Cr level. sedated this morning, will back off of seroquel at HS. will continue ativan 2 TID for now for catatonia. hospitalist will see her again today. per staff, prednisone and pepcid given yesterday for rash. BUN 55. drinking and eating yesterday. took all PO meds last night. drowsy after medication, appeared to be sedated from medication this morning. Mental Status Exam Mental Status Exam Narrative: Pt is alert. She is in hospital attire, disorganized, unable to collaborate in her care, fair eye contact, variably attentive. calm. no requests or complaints. disorganized thoughts. affect constricted, irritable. no SI/HI/AVH expressed. Patient Appearance: Disheveled Diagnostics Vital Signs (24Hr): Vital Signs - 24 hr 09/12/21 20:00 09/13/21 00:00 09/13/21 04:00 Temperature 97.8 F Pulse Rate 100 Respiratory Rate 18 16 16 Blood Pressure 123/70 Pulse Oximetry 98 09/13/21 08:00 09/13/21 15:06 Temperature 97.4 F Pulse Rate 76 85 Respiratory Rate 18 18 Blood Pressure 116/78 118/64 Pulse Oximetry 100 99 BMI result Body Mass Index 25.4 Labs Results: 09/12/21 12:24 09/12/21 12:24 Labs: Laboratory Results - last 48 hr 09/12/21 09/12/21 09/12/21 12:24 12:24 12:24 WBC 10.1 RBC 5.06 Hgb 15.4 Hct 47.0 MCV 92.9 MCH 30.4 MCHC 32.8 RDW 13.2 Plt Count 315 MPV 9.2 L Immature Gran % (Auto) 0.3 Neut % (Auto) 86.1 H Lymph % (Auto) 8.2 L [place] % (Auto) 4.9 Eos % (Auto) 0.4 Baso % (Auto) 0.1 Lymph # (Auto) 0.8 L [place] # (Auto) 0.5 Eos # (Auto) 0.0 Baso # (Auto) 0.0 Abs Immat Gran (auto) 0.03 Absolute Neuts (auto) 8.7 H Absolute Nucleated RBC 0.000 Nucleated RBC % (auto) 0.0 ESR 23 H Sodium 147 H Potassium 4.2 Chloride 110 H Carbon Dioxide 21 L Anion Gap 20 BUN 55 H D Creatinine 1.09 Estim Creat Clear Calc 53.6 Estimated GFR 51 Random Glucose 145 H Calcium 10.9 H D C-Reactive Protein 0.81 H Imaging Radiology Impressions: ITS Impressions Head CT 09/13/21 12:37 IMPRESSION: No acute intracranial findings. Medications Medications Current Medications Acetaminophen (Acetaminophen 325 Mg Tablet) 650 mg PO Q6H PRN PRN Reason: Fever Or Pain Al Hydroxide/Mg Hydroxide (Magnesium Hydrox/Alum Hydrox 30 Ml Oral.Susp) 30 ml PO Q6H PRN PRN Reason: Heartburn/Nausea Apixaban (Apixaban 5 Mg Tablet) 5 mg PO BID [facility] Apixaban (Apixaban 5 Mg Tablet) 10 mg PO BID [facility] Stop: 09/13/21 21:00 Last Admin: 09/13/21 11:27 Dose: 10 mg Documented by: Betamethasone Dipropion Augmented (Betamethasone Dip Aug 0.05% Cr 15 Gm Tube) 1 appl TOPICAL BID [facility]; Protocol Stop: 09/20/21 15:18 Last Admin: 09/13/21 11:35 Dose: Not Given Documented by: Calcium Carbonate/Cholecalciferol (Calcium + Vitamin D 250 Mg Tablet) 250 mg PO DAILY [facility] Last Admin: 09/13/21 11:35 Dose: Not Given Documented by: Docusate Sodium (Docusate Sodium 100 Mg Capsule) 100 mg PO BID [facility] Last Admin: 09/13/21 11:36 Dose: Not Given Documented by: Fluticasone Propionate (Fluticasone Propionate Nasal 16 Gm [place]) 1 spray NOSTRIL-B DAILY PRN PRN Reason: Allergy Symptoms Gabapentin (Gabapentin 400 Mg Capsule) 800 mg PO BEDTIME [facility] Last Admin: 09/12/21 22:22 Dose: 800 mg Documented by: Hydrocortisone (Hydrocortisone 1 % Cream 28.35 Gm Tube) 1 appl TOPICAL BID PRN PRN Reason: rash Lactulose (Lactulose 20 Gm/30 Ml Solution) 10 gm PO BID PRN PRN Reason: constipation Loratadine (Loratadine 10 Mg Tablet) 10 mg PO DAILY PRN PRN Reason: Allergy Symptoms Lorazepam (Lorazepam 1 Mg Tablet) 1 mg PO Q6H PRN PRN Reason: catatonic Lorazepam (Lorazepam 1 Mg Tablet) 2 mg PO TID [facility] Last Admin: 09/13/21 14:51 Dose: 2 mg Documented by: Magnesium Hydroxide (Milk Of Magnesia 30 Ml Oral.Susp) 30 ml PO DAILY PRN PRN Reason: Constipation Melatonin (Melatonin 3 Mg Tablet) 9 mg PO BEDTIME [facility] Last Admin: 09/12/21 22:24 Dose: 9 mg Documented by: Multivitamins/Vitamin C (Multivitamin Tablet) 1 tab PO DAILY [facility] Last Admin: 09/13/21 11:36 Dose: Not Given Documented by: Omeprazole (Omeprazole 20 Mg Capsule.Dr) 20 mg PO BID@0630,1630 [facility] Last Admin: 09/13/21 11:35 Dose: Not Given Documented by: Oxycodone HCl (Oxycodone Hcl Er 10 Mg Tab.Er.12h) 10 mg PO Q12H [facility] Last Admin: 09/13/21 11:35 Dose: Not Given Documented by: Oxycodone HCl (Oxycodone Hcl Immed Release 5 Mg Tablet) 5 mg PO Q6H PRN PRN Reason: Pain, Mild (Pain Scale 1-3) Quetiapine Fumarate (Quetiapine Fumarate 100 Mg Tablet) 100 mg PO BEDTIME PRN PRN Reason: Insomnia Quetiapine Fumarate (Quetiapine Fumarate 200 Mg Tablet) 200 mg PO BEDTIME [facility] Trazodone HCl (Trazodone Hcl 50 Mg Tablet) 50 mg PO BEDTIME PRN PRN Reason: Insomnia Allergies Allergies Allergy/AdvReac Type Severity Reaction Status Date / Time bee pollen Allergy Severe Anaphylaxis Verified 08/25/21 12:46 levofloxacin [From Levaquin] Allergy Severe Itching Verified 08/25/21 12:46 enoxaparin [From Lovenox] Allergy Intermediate Rash Verified 09/12/21 13:58 Penicillins Allergy Unknown Unknown Verified 08/25/21 12:46 Assessment & Plan Assessment & Plan (1) Diffuse papular rash: Status: Acute Code(s): R21 - Rash and other nonspecific skin eruption Assessment and Plan: 1. Diffuse Rash Primarily on the torso, back and b/l UE suspected secondary to Lovenox -- discontinued 1 dose of prednisone + pepcid will check ESR, CR, cbc and bmp (2) Acute deep vein thrombosis (DVT) of left tibial vein: Status: Acute Code(s): I82.442 - Acute embolism and thrombosis of left tibial vein Assessment and Plan: 2. Acute DVT, diagnosed 1 week ago Eliquis -- hopefully the patient can be convinced to take her Eliquis -- limited options given on suspected rash on body may need hematology consult for possible alternatives if she continues to not take PO (3) Bipolar 1 disorder: Status: Acute Code(s): F31.9 - Bipolar disorder, unspecified Assessment and Plan: catatonic psychosis Plan ativan 2 mg TID for catatonia give usual home meds in addition with decrease in seroquel at HS from 400 mg to 200 mg and hold oxycontin for now. eliquis for DVT, as indicated above.? pt appeared to have improved enough yesterday morning to take PO meds after having received a 2 mg ativan IM.? continue ativan to allow pt to clear enough to take PO meds.? if she is unable to for a prolonged period may have to investigate other options for anti- coagulation. pt is less able to take in fluids and nutrition today than she was yesterday. hospitalist to review medical circumstance today. I spent __45____ minutes with the patient and/or on the patient floor today, greater than?50% of which was spent counseling/coordinating care. Reason for contiued inpatient stay Substantial Risk for: inability to function and rapid decompensation
--- NOTE | 2021-09-13 16:10 | HO.PM.IMPN ---
Subjective Subjective Date of Service: 09/21/21 Interval History: patient was seen and evaluated this afternoon Laying in her bed, not interested in talking much Reports she is in the hospital for psychiatric reason She had some lunch and drank some motor She just does not want to be bothered Review of Systems No fever, chills or weakness No chest pain, palpitation No shortness of breath or coughing No abdominal pain, nausea or vomiting No urinary symptoms reporting the rash has been the same and still itchy Physical Exam Vital Signs: Vital Signs: Last Vital Signs Temp 97.4 F 09/13/21 08:00 Pulse 85 09/13/21 15:06 Resp 18 09/13/21 15:06 BP 118/64 09/13/21 15:06 Pulse Ox 99 09/13/21 15:06 BMI result Body Mass Index 25.4 Const: Other: Constitutional : sleeping in bed, answers to questions, not in distress Neck : Normal inspection, Supple Cardiovascular : RRR, no lower extremity edema Respiratory : no crackles, wheezes or rhonchi Gastrointestinal: soft, lax, Normal bowel sounds, Non tender Skin : Warm, Dry, diffuse b/l UE and torso rash, expanding to the back region Neurological : Alert with vocal stimulation & oriented about self and place, No focal deficit Objective Data Active Medications Acetaminophen (Acetaminophen 325 Mg Tablet) 650 mg PO Q6H PRN PRN Reason: Fever Or Pain Al Hydroxide/Mg Hydroxide (Magnesium Hydrox/Alum Hydrox 30 Ml Oral.Susp) 30 ml PO Q6H PRN PRN Reason: Heartburn/Nausea Apixaban (Apixaban 5 Mg Tablet) 5 mg PO BID [facility] Apixaban (Apixaban 5 Mg Tablet) 10 mg PO BID [facility] Stop: 09/13/21 21:00 Last Admin: 09/13/21 11:27 Dose: 10 mg Documented by: KOBY Betamethasone Dipropion Augmented (Betamethasone Dip Aug 0.05% Cr 15 Gm Tube) 1 appl TOPICAL BID [facility]; Protocol Stop: 09/20/21 15:18 Last Admin: 09/13/21 11:35 Dose: Not Given Documented by: KOBY Non-Admin Reason: Patient Refused Calcium Carbonate/Cholecalciferol (Calcium + Vitamin D 250 Mg Tablet) 250 mg PO DAILY [facility] Last Admin: 09/13/21 11:35 Dose: Not Given Documented by: KOBY Non-Admin Reason: Patient Refused Docusate Sodium (Docusate Sodium 100 Mg Capsule) 100 mg PO BID [facility] Last Admin: 09/13/21 11:36 Dose: Not Given Documented by: KOBY Non-Admin Reason: Patient Refused Fluticasone Propionate (Fluticasone Propionate Nasal 16 Gm [place]) 1 spray NOSTRIL-B DAILY PRN PRN Reason: Allergy Symptoms Gabapentin (Gabapentin 400 Mg Capsule) 800 mg PO BEDTIME [facility] Last Admin: 09/12/21 22:22 Dose: 800 mg Documented by: RAFY Hydrocortisone (Hydrocortisone 1 % Cream 28.35 Gm Tube) 1 appl TOPICAL BID PRN PRN Reason: rash Lactulose (Lactulose 20 Gm/30 Ml Solution) 10 gm PO BID PRN PRN Reason: constipation Loratadine (Loratadine 10 Mg Tablet) 10 mg PO DAILY PRN PRN Reason: Allergy Symptoms Lorazepam (Lorazepam 1 Mg Tablet) 1 mg PO Q6H PRN PRN Reason: catatonic Lorazepam (Lorazepam 1 Mg Tablet) 2 mg PO TID [facility] Last Admin: 09/13/21 14:51 Dose: 2 mg Documented by: KOBY Magnesium Hydroxide (Milk Of Magnesia 30 Ml Oral.Susp) 30 ml PO DAILY PRN PRN Reason: Constipation Melatonin (Melatonin 3 Mg Tablet) 9 mg PO BEDTIME [facility] Last Admin: 09/12/21 22:24 Dose: 9 mg Documented by: RAFY Multivitamins/Vitamin C (Multivitamin Tablet) 1 tab PO DAILY [facility] Last Admin: 09/13/21 11:36 Dose: Not Given Documented by: KOBY Non-Admin Reason: Patient Refused Omeprazole (Omeprazole 20 Mg Capsule.) 20 mg PO BID@0630,1630 [facility] Last Admin: 09/13/21 11:35 Dose: Not Given Documented by: KOBY Non-Admin Reason: Patient Refused Oxycodone HCl (Oxycodone Hcl Er 10 Mg Tab.Er.12h) 10 mg PO Q12H [facility] Last Admin: 09/13/21 11:35 Dose: Not Given Documented by: KOBY Non-Admin Reason: Physician Held Med Oxycodone HCl (Oxycodone Hcl Immed Release 5 Mg Tablet) 5 mg PO Q6H PRN PRN Reason: Pain, Mild (Pain Scale 1-3) Quetiapine Fumarate (Quetiapine Fumarate 100 Mg Tablet) 100 mg PO BEDTIME PRN PRN Reason: Insomnia Quetiapine Fumarate (Quetiapine Fumarate 200 Mg Tablet) 200 mg PO BEDTIME [facility] Trazodone HCl (Trazodone Hcl 50 Mg Tablet) 50 mg PO BEDTIME PRN PRN Reason: Insomnia Labs CBC & Chem 7: 09/14/21 07:24 09/19/21 09:08 Assessment and Plan (1) Hypernatremia: Status: Acute (2) Hypercalcemia: Status: Acute Plan This is a 65 yo F with a L TKA last month who developed a LLE DVT, diagnosed about 1 week ago. She was treated with Eliquis initially but once she refused PO intake, she was switched to Lovenox and has gone on to develop a rash, hence the rason for this consult. Hypernatremia Sodium of 147 last check yesterday Encouraged to increase water intake to recheck BMP Diffuse Rash Primarily on the torso, back and b/l UE suspected secondary to Lovenox - discontinued start prednisone and loratadine hypercalcemia corrected calcium of 10.7 mildly elevated with no specific intervention needed Patient on prednisone which should help bringing it down, to repeat BMP tomorrow morning Acute DVT diagnosed 1 week ago continue [place] Will Follow along with you Quality Stroke Does the patient have a stroke diagnosis?: No VTE Prior VTE?: No VTE Risk Level:: Medical - low VTE Device Contraindication: Patient Refused VTE Drug Contraindication: Patient Refused
[2021-09-13] MEDS: Dextrose 5 % and 0.45 % NaCl 1,000 ML 125 ML IVCONT (18:19)
--- NOTE | 2021-09-13 18:22 | PC.NURSE ---
Patient increasingly alert, talkative, speech clearer, content tangential- patient continues to be irritable, paranoid 'do you all enjoy torturing me? frequently declining PO medications. IV started by Jia Garcia RN mixing supervisor, patient cooperative w/ IV start. IV site clean, no edema, fluids running as ordered. Patient ate ice cream, but declined supper. Offered patient opportunity to ambulate to toilet- patient declined.
--- NOTE | 2021-09-13 18:41 | PC.NURSE ---
Chemistry called re: lab work. Per chemistry dept, patient refused labs this afternoon. Attempted to reach phlebotomy to retry.
[2021-09-13 20:00] VITALS: BP 108/67; PULSE 78; RESP 16; TEMP 36.6; O2SAT 98
[2021-09-13 20:02] LABS: Anion Gap 13 (12-20); Blood Urea Nitrogen 30 mg/dL (9-16); Calcium 9.3 mg/dL (8.4-10.2); Carbon Dioxide 25 mmol/L (22-29); Chloride 105 mmol/L (96-108); Creatinine Clr Calc Pharmacy 81.1; Estimated Glomerular Filt Rate > 60; Glucose Random 107 mg/dL (60-115); Potassium 3.7 mmol/L (3.3-5.1); Sodium 139 mmol/L (135-145)
[2021-09-13] MEDS: QUEtiapine Fumarate 200 MG TABLET PO (20:43)
[2021-09-13] MEDS: Melatonin 3 MG TABLET 9 MG PO ×2 (20:51→23:50)
--- NOTE | 2021-09-14 03:41 | PC.NURSE ---
PT IV dislodged at 0335, IV fluids received as ordered, IV removed at 0350 intact no issues.
[2021-09-14 07:53] LABS: Anion Gap 11 (12-20); Blood Urea Nitrogen 24 mg/dL (9-16); Calcium 9.3 mg/dL (8.4-10.2); Carbon Dioxide 26 mmol/L (22-29); Chloride 106 mmol/L (96-108); Creatinine Clr Calc Pharmacy 88.5; Estimated Glomerular Filt Rate > 60; Glucose Random 107 mg/dL (60-115); Potassium 3.8 mmol/L (3.3-5.1); Sodium 139 mmol/L (135-145)
[2021-09-14 08:01] LABS: Hematocrit 37.3 % (37.0-47.0); Hemoglobin 12.1 g/dl (12.0-16.0); Mean Corpuscular HGB Conc 32.4 g/dl (31.0-35.0); Mean Corpuscular Hemoglobin 29.7 pg (27.0-33.0); Mean Corpuscular Volume 91.6 fL (80.0-98.0); Mean Platelet Volume 9.1 fL (9.4-12.3); Platelet Count 211 X10*3/uL (160-400); Red Blood Count 4.07 X10*6/uL (4.20-5.50); Red Cell Distribution Width 12.7 % (11.0-16.0); White Blood Count 8.1 X10*3/uL (4.8-10.8)
[2021-09-14 09:26] VITALS: BP 111/76; PULSE 96; RESP 17; TEMP 36.7; O2SAT 97
--- NOTE | 2021-09-14 10:58 | PC.NURSE ---
PT declining flu vaccine
[2021-09-14 12:09] VITALS: BP 114/56; PULSE 88; RESP 16; TEMP 36.6; O2SAT 97
[2021-09-14] MEDS: LORazepam 1 MG TABLET 2 MG PO (14:56)
--- NOTE | 2021-09-14 15:01 | PC.NURSE ---
Pt offered her scheduled ativan, with much encouragement pt attempted to take the medication, pt spit out and then attempted to eat the medication several times. Medication dissolved, unclear how much PT took. Provider and director aware.
[2021-09-14 16:32] VITALS: BP 137/81; PULSE 86; RESP 17; TEMP 36.7; O2SAT 98
--- NOTE | 2021-09-14 20:22 | HO.PSYCHPN ---
Subjective Subjective Date of Service: 09/14/21 Reason For Visit: Psychosis Interim History: pt seen in her bed, two staff present trying to grt her to take some medication and food. pt was very hesitant and finally resistant to the efforts. she was irritable and accused this inspector automatic typewriter of having attempted to harm her in some way. encouraged her to take medications and fluids. per staff, pt was quite paranoid yesterday. having difficulty eating or taking medications, claiming the medications are poison. refused meds this morning. urine dark and cloudy. asked for sleeping pills at 0500 this morning and received HS meds at that time. received IV fluids yesterday evening. commitment paperwork filed. Mental Status Exam Mental Status Exam Narrative: Pt is alert. She is in hospital attire, disorganized, unable to collaborate in her care, fair eye contact, variably attentive. disorganized thoughts. paranoid delusions. affect constricted, irritable. no SI/HI/AVH expressed. Patient Appearance: Disheveled Diagnostics Vital Signs (24Hr): Vital Signs - 24 hr 09/14/21 09:26 09/14/21 12:09 09/14/21 16:32 Temperature 98.1 F 97.9 F 98.1 F Pulse Rate 96 88 86 Respiratory Rate 17 16 17 Blood Pressure 111/76 114/56 L 137/81 Pulse Oximetry 97 97 98 BMI result Body Mass Index 25.4 Labs Results: 09/14/21 07:24 09/14/21 07:24 Labs: Laboratory Results - last 48 hr 09/13/21 09/14/21 09/14/21 19:14 07:24 07:24 WBC 8.1 RBC 4.07 L Hgb 12.1 D Hct 37.3 D MCV 91.6 MCH 29.7 MCHC 32.4 RDW 12.7 Plt Count 211 D MPV 9.1 L Absolute Nucleated RBC 0.000 Nucleated RBC % (auto) 0.0 Sodium 139 139 Potassium 3.7 3.8 Chloride 105 106 Carbon Dioxide 25 26 Anion Gap 13 11 L BUN 30 H 24 H Creatinine 0.72 0.66 Estim Creat Clear Calc 81.1 88.5 Estimated GFR > 60 > 60 Random Glucose 107 107 Calcium 9.3 D 9.3 Imaging Radiology Impressions: ITS Impressions Head CT 09/13/21 12:37 IMPRESSION: No acute intracranial findings. Medications Medications Current Medications Acetaminophen (Acetaminophen 325 Mg Tablet) 650 mg PO Q6H PRN PRN Reason: Fever Or Pain Al Hydroxide/Mg Hydroxide (Magnesium Hydrox/Alum Hydrox 30 Ml Oral.Susp) 30 ml PO Q6H PRN PRN Reason: Heartburn/Nausea Apixaban (Apixaban 5 Mg Tablet) 5 mg PO BID [facility] Last Admin: 09/14/21 08:55 Dose: Not Given Documented by: Betamethasone Dipropion Augmented (Betamethasone Dip Aug 0.05% Cr 15 Gm Tube) 1 appl TOPICAL BID [facility]; Protocol Stop: 09/20/21 15:18 Last Admin: 09/14/21 08:55 Dose: Not Given Documented by: Calcium Carbonate/Cholecalciferol (Calcium + Vitamin D 250 Mg Tablet) 250 mg PO DAILY [facility] Last Admin: 09/14/21 08:55 Dose: Not Given Documented by: Docusate Sodium (Docusate Sodium 100 Mg Capsule) 100 mg PO BID [facility] Last Admin: 09/14/21 08:55 Dose: Not Given Documented by: Fluticasone Propionate (Fluticasone Propionate Nasal 16 Gm [place]) 1 spray NOSTRIL-B DAILY PRN PRN Reason: Allergy Symptoms Gabapentin (Gabapentin 400 Mg Capsule) 800 mg PO BEDTIME [facility] Last Admin: 09/13/21 20:45 Dose: Not Given Documented by: Hydrocortisone (Hydrocortisone 1 % Cream 28.35 Gm Tube) 1 appl TOPICAL BID PRN PRN Reason: rash Lactulose (Lactulose 20 Gm/30 Ml Solution) 10 gm PO BID PRN PRN Reason: constipation Loratadine (Loratadine 10 Mg Tablet) 10 mg PO DAILY [facility] Last Admin: 09/14/21 08:55 Dose: Not Given Documented by: Lorazepam (Lorazepam 1 Mg Tablet) 1 mg PO Q6H PRN PRN Reason: catatonic Lorazepam (Lorazepam 1 Mg Tablet) 2 mg PO TID [facility] Last Admin: 09/14/21 14:56 Dose: 2 mg Documented by: Magnesium Hydroxide (Milk Of Magnesia 30 Ml Oral.Susp) 30 ml PO DAILY PRN PRN Reason: Constipation Melatonin (Melatonin 3 Mg Tablet) 9 mg PO BEDTIME [facility] Last Admin: 09/13/21 23:50 Dose: 9 mg Documented by: Multivitamins/Vitamin C (Multivitamin Tablet) 1 tab PO DAILY [facility] Last Admin: 09/14/21 08:55 Dose: Not Given Documented by: Omeprazole (Omeprazole 20 Mg Capsule.Dr) 20 mg PO BID@0630,1630 [facility] Last Admin: 09/14/21 16:37 Dose: Not Given Documented by: Oxycodone HCl (Oxycodone Hcl Er 10 Mg Tab.Er.12h) 10 mg PO Q12H [facility] Last Admin: 09/13/21 11:35 Dose: Not Given Documented by: Oxycodone HCl (Oxycodone Hcl Immed Release 5 Mg Tablet) 5 mg PO Q6H PRN PRN Reason: Pain, Mild (Pain Scale 1-3) Prednisone (Prednisone 20 Mg Tablet) 40 mg PO DAILY [facility] Stop: 09/17/21 16:14 Last Admin: 09/14/21 08:56 Dose: Not Given Documented by: Quetiapine Fumarate (Quetiapine Fumarate 100 Mg Tablet) 100 mg PO BEDTIME PRN PRN Reason: Insomnia Quetiapine Fumarate (Quetiapine Fumarate 400 Mg Tablet) 400 mg PO BEDTIME [facility] Trazodone HCl (Trazodone Hcl 50 Mg Tablet) 50 mg PO BEDTIME PRN PRN Reason: Insomnia Allergies Allergies Allergy/AdvReac Type Severity Reaction Status Date / Time bee pollen Allergy Severe Anaphylaxis Verified 08/25/21 12:46 levofloxacin [From Levaquin] Allergy Severe Itching Verified 08/25/21 12:46 enoxaparin [From Lovenox] Allergy Intermediate Rash Verified 09/12/21 13:58 Penicillins Allergy Unknown Unknown Verified 08/25/21 12:46 Assessment & Plan Assessment & Plan (1) Bipolar 1 disorder: Status: Acute Code(s): F31.9 - Bipolar disorder, unspecified (2) Acute deep vein thrombosis (DVT) of left tibial vein: Status: Acute Code(s): I82.442 - Acute embolism and thrombosis of left tibial vein (3) Diffuse papular rash: Status: Acute Code(s): R21 - Rash and other nonspecific skin eruption (4) Hypernatremia: Status: Acute Code(s): E87.0 - Hyperosmolality and hypernatremia Assessment and Plan: This is a 65 yo F with a L TKA last month who developed a LLE DVT, diagnosed about 1 week ago. She was treated with Eliquis initially but once she refused PO intake, she was switched to Lovenox and has gone on to develop a rash, hence the reason for this consult. Hypernatremia Sodium of 147 last check yesterday Encouraged to increase water intake to recheck BMP Diffuse Rash Primarily on the torso, back and b/l UE suspected secondary to Lovenox - discontinued start prednisone and loratadine hypercalcemia corrected calcium of 10.7 mildly elevated with no specific intervention needed Patient on prednisone which should help bringing it down, to repeat BMP tomorrow morning Acute DVT diagnosed 1 week ago continue Eliquis Will Follow along with you (5) Hypercalcemia: Status: Acute Code(s): E83.52 - Hypercalcemia Plan ativan 2 mg TID for catatonia, which has now resolved. continue the medication to reduce anxiety/paranoia/mixed lucrecia for now. give usual home meds except for the following: hold oxycontin for now. eliquis for DVT, as indicated above.? if she is unable to accept PO medication for a prolonged period may have to investigate other options for anti-coagulation. hospitalist to review medical circumstance daily. hospitalist input and involvement appreciated. I spent ___45___ minutes with the patient and/or on the patient floor today, greater than?50% of which was spent counseling/coordinating care. Reason for contiued inpatient stay Substantial Risk for: harm to self and inability to function
[2021-09-14 21:51] VITALS: BP 104/63; PULSE 87; TEMP 36.6; O2SAT 98
[2021-09-15] VITALS (8 sets, daily range): BP systolic 115–144; BP diastolic 65–72; PULSE 82–95; RESP 12–17; TEMP 36.2–37.2; O2SAT 95–99; BMI 22.1
--- NOTE | 2021-09-15 14:13 | P.PNPSI_ITS ---
Subjective Subjective Date of Service: 09/15/21 Reason For Visit: Psychosis Interim History: attempted to interview pt but she was not rousable to loud voice. per staff, she continues to refuse all PO intake - food, fluids, medications. c/o leg pain in vicinity of DVT. rash continues. last NOC asked for medications and when presented with them she refused to take them. showered yesterday. Mental Status Exam Mental Status Exam Narrative: pt not rousable to loud voice, sleeping in her bed. Diagnostics Vital Signs (24Hr): Vital Signs - 24 hr 09/14/21 16:32 09/14/21 21:51 09/15/21 00:00 Temperature 98.1 F 97.8 F Pulse Rate 86 87 Respiratory Rate 17 14 Blood Pressure 137/81 104/63 Pulse Oximetry 98 98 09/15/21 04:00 09/15/21 05:30 09/15/21 09:16 Temperature 97.2 F 97.2 F Pulse Rate 82 95 Respiratory Rate 14 14 17 Blood Pressure 129/67 144/72 H Pulse Oximetry 97 99 BMI result Body Mass Index 22.1 Labs Results: 09/14/21 07:24 09/14/21 07:24 Labs: Laboratory Results - last 48 hr 09/13/21 09/14/21 09/14/21 19:14 07:24 07:24 WBC 8.1 RBC 4.07 L Hgb 12.1 D Hct 37.3 D MCV 91.6 MCH 29.7 MCHC 32.4 RDW 12.7 Plt Count 211 D MPV 9.1 L Absolute Nucleated RBC 0.000 Nucleated RBC % (auto) 0.0 Sodium 139 139 Potassium 3.7 3.8 Chloride 105 106 Carbon Dioxide 25 26 Anion Gap 13 11 L BUN 30 H 24 H Creatinine 0.72 0.66 Estim Creat Clear Calc 81.1 88.5 Estimated GFR > 60 > 60 Random Glucose 107 107 Calcium 9.3 D 9.3 Imaging Radiology Impressions: ITS Impressions Head CT 09/13/21 12:37 IMPRESSION: No acute intracranial findings. Medications Medications Current Medications Acetaminophen (Acetaminophen 325 Mg Tablet) 650 mg PO Q6H PRN PRN Reason: Fever Or Pain Al Hydroxide/Mg Hydroxide (Magnesium Hydrox/Alum Hydrox 30 Ml Oral.Susp) 30 ml PO Q6H PRN PRN Reason: Heartburn/Nausea Apixaban (Apixaban 5 Mg Tablet) 5 mg PO BID [facility] Last Admin: 09/15/21 10:22 Dose: Not Given Documented by: Betamethasone Dipropion Augmented (Betamethasone Dip Aug 0.05% Cr 15 Gm Tube) 1 appl TOPICAL BID [facility]; Protocol Stop: 09/20/21 15:18 Last Admin: 09/15/21 10:22 Dose: Not Given Documented by: Calcium Carbonate/Cholecalciferol (Calcium + Vitamin D 250 Mg Tablet) 250 mg PO DAILY [facility] Last Admin: 09/15/21 10:22 Dose: Not Given Documented by: Docusate Sodium (Docusate Sodium 100 Mg Capsule) 100 mg PO BID [facility] Last Admin: 09/15/21 10:22 Dose: Not Given Documented by: Fluticasone Propionate (Fluticasone Propionate Nasal 16 Gm [place]) 1 spray NOSTRIL-B DAILY PRN PRN Reason: Allergy Symptoms Gabapentin (Gabapentin 400 Mg Capsule) 800 mg PO BEDTIME [facility] Last Admin: 09/15/21 01:07 Dose: Not Given Documented by: Hydrocortisone (Hydrocortisone 1 % Cream 28.35 Gm Tube) 1 appl TOPICAL BID PRN PRN Reason: rash Lactulose (Lactulose 20 Gm/30 Ml Solution) 10 gm PO BID PRN PRN Reason: constipation Loratadine (Loratadine 10 Mg Tablet) 10 mg PO DAILY [facility] Last Admin: 09/15/21 10:22 Dose: Not Given Documented by: Lorazepam (Lorazepam 1 Mg Tablet) 2 mg PO TID [facility] Last Admin: 09/15/21 10:22 Dose: Not Given Documented by: Magnesium Hydroxide (Milk Of Magnesia 30 Ml Oral.Susp) 30 ml PO DAILY PRN PRN Reason: Constipation Melatonin (Melatonin 3 Mg Tablet) 9 mg PO BEDTIME [facility] Last Admin: 09/13/21 23:50 Dose: 9 mg Documented by: Multivitamins/Vitamin C (Multivitamin Tablet) 1 tab PO DAILY [facility] Last Admin: 09/15/21 10:23 Dose: Not Given Documented by: Omeprazole (Omeprazole 20 Mg Capsule.Dr) 20 mg PO BID@0630,1630 [facility] Last Admin: 09/15/21 10:22 Dose: Not Given Documented by: Oxycodone HCl (Oxycodone Hcl Er 10 Mg Tab.Er.12h) 10 mg PO Q12H [facility] Last Admin: 09/13/21 11:35 Dose: Not Given Documented by: Oxycodone HCl (Oxycodone Hcl Immed Release 5 Mg Tablet) 5 mg PO Q6H PRN PRN Reason: Pain, Mild (Pain Scale 1-3) Prednisone (Prednisone 20 Mg Tablet) 40 mg PO DAILY [facility] Stop: 09/17/21 16:14 Last Admin: 09/15/21 10:23 Dose: Not Given Documented by: Quetiapine Fumarate (Quetiapine Fumarate 100 Mg Tablet) 100 mg PO BEDTIME PRN PRN Reason: Insomnia Quetiapine Fumarate (Quetiapine Fumarate 400 Mg Tablet) 400 mg PO BEDTIME [facility] Last Admin: 09/15/21 01:08 Dose: Not Given Documented by: Trazodone HCl (Trazodone Hcl 50 Mg Tablet) 50 mg PO BEDTIME PRN PRN Reason: Insomnia Allergies Allergies Allergy/AdvReac Type Severity Reaction Status Date / Time bee pollen Allergy Severe Anaphylaxis Verified 08/25/21 12:46 levofloxacin [From Levaquin] Allergy Severe Itching Verified 08/25/21 12:46 enoxaparin [From Lovenox] Allergy Intermediate Rash Verified 09/12/21 13:58 Penicillins Allergy Unknown Unknown Verified 08/25/21 12:46 Assessment & Plan Assessment & Plan (1) Bipolar 1 disorder: Status: Acute Code(s): F31.9 - Bipolar disorder, unspecified (2) Acute deep vein thrombosis (DVT) of left tibial vein: Status: Acute Code(s): I82.442 - Acute embolism and thrombosis of left tibial vein (3) Diffuse papular rash: Status: Acute Code(s): R21 - Rash and other nonspecific skin eruption (4) Hypernatremia: Status: Acute Code(s): E87.0 - Hyperosmolality and hypernatremia Assessment and Plan: This is a 65 yo F with a L TKA last month who developed a LLE DVT, diagnosed about 1 week ago. She was treated with Eliquis initially but once she refused PO intake, she was switched to Lovenox and has gone on to develop a rash, hence the reason for this consult. Hypernatremia Sodium of 147 last check yesterday Encouraged to increase water intake to recheck BMP Diffuse Rash Primarily on the torso, back and b/l UE suspected secondary to Lovenox - discontinued start prednisone and loratadine hypercalcemia corrected calcium of 10.7 mildly elevated with no specific intervention needed Patient on prednisone which should help bringing it down, to repeat BMP tomorrow morning Acute DVT diagnosed 1 week ago continue Eliquis Will Follow along with you (5) Hypercalcemia: Status: Acute Code(s): E83.52 - Hypercalcemia Plan ativan 2 mg TID for catatonia, which has now resolved. continue the medication to reduce anxiety/paranoia/mixed lucrecia for now. give usual home meds except for the following: hold oxycontin for now. eliquis for DVT, as indicated above.? if she is unable to accept PO medication for a prolonged period may have to investigate other options for anti- coagulation. hospitalist to review medical circumstance daily. hospitalist input and involvement appreciated. call placed to hospital halfway house counselor for advice on allowable interventions. I spent __25____ minutes with the patient and/or on the patient floor today, greater than?50% of which was spent counseling/coordinating care. Reason for contiued inpatient stay Substantial Risk for: harm to self and inability to function
--- NOTE | 2021-09-15 17:16 | HO.PM.IMPN ---
Subjective Subjective Date of Service: 09/15/21 Interval History: Rash attributed to Lovenox improved but still itchy. Despite being worried about her LLE DVT and c/o some discomfort in the L leg, she continues to refuse medications. Not taking any food or liquids either. Very limited history. Denies dyspnea. Review of Systems Review of Systems: Yes all other systems are reviewed and are negative Physical Exam Vital Signs: Vital Signs: Last Vital Signs Temp 98.9 F 09/15/21 15:19 Pulse 88 09/15/21 15:19 Resp 17 09/15/21 15:19 BP 138/65 09/15/21 15:19 Pulse Ox 98 09/15/21 15:19 BMI result Body Mass Index 22.1 Gen: in no acute distress HEENT: sclera anicteric, moist mucus membranes Neck: supple Lungs: clear to auscultation bilaterally Heart: regular rate and rhythm, no murmurs Abd: soft, non-tender, non-distended Ext: no edema Skin: scattered mildly erythematous eczematous macules and patches on arms, torso, and back Neuro: no focal findings Psych: restricted affect Objective Data Active Medications Acetaminophen (Acetaminophen 325 Mg Tablet) 650 mg PO Q6H PRN PRN Reason: Fever Or Pain Al Hydroxide/Mg Hydroxide (Magnesium Hydrox/Alum Hydrox 30 Ml Oral.Susp) 30 ml PO Q6H PRN PRN Reason: Heartburn/Nausea Apixaban (Apixaban 5 Mg Tablet) 5 mg PO BID [facility] Last Admin: 09/15/21 10:22 Dose: Not Given Documented by: JAZMÍN Non-Admin Reason: Patient Refused Betamethasone Dipropion Augmented (Betamethasone Dip Aug 0.05% Cr 15 Gm Tube) 1 appl TOPICAL BID [facility]; Protocol Stop: 09/20/21 15:18 Last Admin: 09/15/21 10:22 Dose: Not Given Documented by: JAZMÍN Non-Admin Reason: Patient Refused Calcium Carbonate/Cholecalciferol (Calcium + Vitamin D 250 Mg Tablet) 250 mg PO DAILY [facility] Last Admin: 09/15/21 10:22 Dose: Not Given Documented by: JAZMÍN Non-Admin Reason: Patient Refused Docusate Sodium (Docusate Sodium 100 Mg Capsule) 100 mg PO BID [facility] Last Admin: 09/15/21 10:22 Dose: Not Given Documented by: JAZMÍN Non-Admin Reason: Patient Refused Fluticasone Propionate (Fluticasone Propionate Nasal 16 Gm [place]) 1 spray NOSTRIL-B DAILY PRN PRN Reason: Allergy Symptoms Gabapentin (Gabapentin 400 Mg Capsule) 800 mg PO BEDTIME [facility] Last Admin: 09/15/21 01:07 Dose: Not Given Documented by: STANTON Non-Admin Reason: Patient Refused Hydrocortisone (Hydrocortisone 1 % Cream 28.35 Gm Tube) 1 appl TOPICAL BID PRN PRN Reason: rash Lactulose (Lactulose 20 Gm/30 Ml Solution) 10 gm PO BID PRN PRN Reason: constipation Loratadine (Loratadine 10 Mg Tablet) 10 mg PO DAILY [facility] Last Admin: 09/15/21 10:22 Dose: Not Given Documented by: JAZMÍN Non-Admin Reason: Patient Refused Lorazepam (Lorazepam 1 Mg Tablet) 2 mg PO TID [facility] Last Admin: 09/15/21 14:50 Dose: Not Given Documented by: AJZMÍN Non-Admin Reason: Patient Refused Magnesium Hydroxide (Milk Of Magnesia 30 Ml Oral.Susp) 30 ml PO DAILY PRN PRN Reason: Constipation Melatonin (Melatonin 3 Mg Tablet) 9 mg PO BEDTIME [facility] Last Admin: 09/13/21 20:51 Dose: 9 mg Documented by: SURAJ Multivitamins/Vitamin C (Multivitamin Tablet) 1 tab PO DAILY [facility] Last Admin: 09/15/21 10:23 Dose: Not Given Documented by: JAZMÍN Non-Admin Reason: Patient Refused Omeprazole (Omeprazole 20 Mg Jose Juan.) 20 mg PO BID@0630,1630 [facility] Last Admin: 09/15/21 14:51 Dose: Not Given Documented by: JAZMÍN Non-Admin Reason: Patient Refused Oxycodone HCl (Oxycodone Hcl Er 10 Mg Tab.Er.12h) 10 mg PO Q12H [facility] Last Admin: 09/13/21 11:35 Dose: Not Given Documented by: KOBY Non-Admin Reason: Physician Held Med Oxycodone HCl (Oxycodone Hcl Immed Release 5 Mg Tablet) 5 mg PO Q6H PRN PRN Reason: Pain, Mild (Pain Scale 1-3) Prednisone (Prednisone 20 Mg Tablet) 40 mg PO DAILY [facility] Stop: 09/17/21 16:14 Last Admin: 09/15/21 10:23 Dose: Not Given Documented by: JAZMÍN Non-Admin Reason: Patient Refused Quetiapine Fumarate (Quetiapine Fumarate 100 Mg Tablet) 100 mg PO BEDTIME PRN PRN Reason: Insomnia Quetiapine Fumarate (Quetiapine Fumarate 400 Mg Tablet) 400 mg PO BEDTIME [facility] Last Admin: 09/15/21 01:08 Dose: Not Given Documented by: STANTON Non-Admin Reason: Patient Refused Trazodone HCl (Trazodone Hcl 50 Mg Tablet) 50 mg PO BEDTIME PRN PRN Reason: Insomnia Labs CBC & Chem 7: 09/14/21 07:24 09/14/21 07:24 Assessment and Plan (1) Hypernatremia: Status: Acute (2) Hypercalcemia: Status: Acute Plan 65yo F with a L TKA last month who developed a LLE DVT, diagnosed about 1 week ago, treated with apixaban initially but once she refused PO intake from catatonia, she was switched to enoxaparin but then developed a rash # LLE DVT - consult Heme/Onc to see if fondaparinux is an option # rash - suspect due to enoxaprain- discontinued - prescribed steroid + antihistmamine but not taking POs - improving # inadequate PO intake - would start D5 1/2NS at maintenance 100 mL/hr as long as not taking POs - check electrolytes in am # hyperNa - resolved # catatonia - management as per psychiatry Quality Stroke Does the patient have a stroke diagnosis?: No VTE Prior VTE?: No VTE Risk Level:: Medical - moderate - high VTE Device Contraindication: N/A - Device Ordered VTE Drug Contraindication: N/A - Med Ordered
[2021-09-16] VITALS (7 sets, daily range): BP systolic 113–144; BP diastolic 64–86; PULSE 84–104; RESP 14–16; TEMP 36.2–36.8; O2SAT 92–97
[2021-09-16 09:11] LABS: Anion Gap 16 (12-20); Blood Urea Nitrogen 24 mg/dL (9-16); Calcium 9.8 mg/dL (8.4-10.2); Carbon Dioxide 23 mmol/L (22-29); Chloride 106 mmol/L (96-108); Creatinine Clr Calc Pharmacy 79.2; Estimated Glomerular Filt Rate > 60; Glucose Random 97 mg/dL (60-115); Magnesium 2.3 mg/dL (1.6-2.6); Potassium 4.2 mmol/L (3.3-5.1); Sodium 141 mmol/L (135-145)
--- NOTE | 2021-09-16 09:45 | P.PNIM_ITS ---
Subjective Subjective Date of Service: 09/16/21 Interval History: Still refusing to eat or drink. Not talking to me. Review of Systems Review of Systems: Yes Unobtainable due to mental status Physical Exam Vital Signs: Vital Signs: Last Vital Signs Temp 97.2 F 09/16/21 08:20 Pulse 84 09/16/21 08:20 Resp 16 09/16/21 08:20 BP 140/73 H 09/16/21 08:20 Pulse Ox 96 09/16/21 08:20 BMI result Body Mass Index 22.1 Gen: catatonic Lungs: clear to auscultation bilaterally Heart: regular rate and rhythm, no murmurs Abd: soft, non-tender, non-distended Ext: LLE calf swollen Skin: improving eczematous macules and patches on arms, torso, and back Psych: catatonic Objective Data Active Medications Acetaminophen (Acetaminophen 325 Mg Tablet) 650 mg PO Q6H PRN PRN Reason: Fever Or Pain Al Hydroxide/Mg Hydroxide (Magnesium Hydrox/Alum Hydrox 30 Ml Oral.Susp) 30 ml PO Q6H PRN PRN Reason: Heartburn/Nausea Apixaban (Apixaban 5 Mg Tablet) 5 mg PO BID [facility] Last Admin: 09/15/21 23:06 Dose: Not Given Documented by: STANTON Non-Admin Reason: Patient Refused Betamethasone Dipropion Augmented (Betamethasone Dip Aug 0.05% Cr 15 Gm Tube) 1 appl TOPICAL BID [facility]; Protocol Stop: 09/20/21 15:18 Last Admin: 09/15/21 21:42 Dose: Not Given Documented by: STANTON Non-Admin Reason: Patient Refused Calcium Carbonate/Cholecalciferol (Calcium + Vitamin D 250 Mg Tablet) 250 mg PO DAILY [facility] Last Admin: 09/15/21 10:22 Dose: Not Given Documented by: JAZMÍN Non-Admin Reason: Patient Refused Docusate Sodium (Docusate Sodium 100 Mg Capsule) 100 mg PO BID [facility] Last Admin: 09/15/21 21:42 Dose: Not Given Documented by: STANTON Non-Admin Reason: Patient Refused Fluticasone Propionate (Fluticasone Propionate Nasal 16 Gm [place]) 1 spray NOSTRIL-B DAILY PRN PRN Reason: Allergy Symptoms Fondaparinux (Fondaparinux Sodium 7.5 Mg/0.6 Ml Syringe) 7.5 mg SUBCUT Q24H [facility] Gabapentin (Gabapentin 400 Mg Capsule) 800 mg PO BEDTIME [facility] Last Admin: 09/15/21 21:43 Dose: Not Given Documented by: STANTON Non-Admin Reason: Patient Refused Hydrocortisone (Hydrocortisone 1 % Cream 28.35 Gm Tube) 1 appl TOPICAL BID PRN PRN Reason: rash Lactulose (Lactulose 20 Gm/30 Ml Solution) 10 gm PO BID PRN PRN Reason: constipation Loratadine (Loratadine 10 Mg Tablet) 10 mg PO DAILY [facility] Last Admin: 09/15/21 10:22 Dose: Not Given Documented by: JAZMÍN Non-Admin Reason: Patient Refused Lorazepam (Lorazepam 1 Mg Tablet) 2 mg PO TID [facility] Last Admin: 09/15/21 21:42 Dose: Not Given Documented by: STANTON Non-Admin Reason: Patient Refused Magnesium Hydroxide (Milk Of Magnesia 30 Ml Oral.Susp) 30 ml PO DAILY PRN PRN Reason: Constipation Melatonin (Melatonin 3 Mg Tablet) 9 mg PO BEDTIME [facility] Last Admin: 09/15/21 21:42 Dose: Not Given Documented by: STANTON Non-Admin Reason: Patient Refused Multivitamins/Vitamin C (Multivitamin Tablet) 1 tab PO DAILY [facility] Last Admin: 09/15/21 10:23 Dose: Not Given Documented by: JAZMÍN Non-Admin Reason: Patient Refused Omeprazole (Omeprazole 20 Mg Capsule.) 20 mg PO BID@0630,1630 [facility] Last Admin: 09/15/21 14:51 Dose: Not Given Documented by: JAZMÍN Non-Admin Reason: Patient Refused Oxycodone HCl (Oxycodone Hcl Er 10 Mg Tab.Er.12h) 10 mg PO Q12H [facility] Last Admin: 09/13/21 11:35 Dose: Not Given Documented by: KOBY Non-Admin Reason: Physician Held Med Oxycodone HCl (Oxycodone Hcl Immed Release 5 Mg Tablet) 5 mg PO Q6H PRN PRN Reason: Pain, Mild (Pain Scale 1-3) Prednisone (Prednisone 20 Mg Tablet) 40 mg PO DAILY [facility] Stop: 09/17/21 16:14 Last Admin: 09/15/21 10:23 Dose: Not Given Documented by: JAZMÍN Non-Admin Reason: Patient Refused Quetiapine Fumarate (Quetiapine Fumarate 100 Mg Tablet) 100 mg PO BEDTIME PRN PRN Reason: Insomnia Quetiapine Fumarate (Quetiapine Fumarate 400 Mg Tablet) 400 mg PO BEDTIME [facility] Last Admin: 09/15/21 21:42 Dose: Not Given Documented by: STANTON Non-Admin Reason: Patient Refused Trazodone HCl (Trazodone Hcl 50 Mg Tablet) 50 mg PO BEDTIME PRN PRN Reason: Insomnia Labs CBC & Chem 7: 09/14/21 07:24 09/16/21 08:46 Labs: Laboratory Results - last 24 hr 09/16/21 08:46 Anion Gap 16 Estim Creat Clear Calc 79.2 Estimated GFR > 60 Random Glucose 97 Calcium 9.8 Magnesium 2.3 Assessment and Plan (1) Hypernatremia: Status: Acute (2) Hypercalcemia: Status: Acute Plan 65yo F with a L TKA last month who developed a LLE DVT, diagnosed about 1 week ago, treated with apixaban initially but once she refused PO intake from catatonia, she was switched to enoxaparin but then developed a rash. Hospitalists consulted for management of DVT + dehydration. # LLE DVT # rash to enoxaparin - while not taking POs, will anticoagulate with fondaparinux 7.5 mg SQ daily # inadequate PO intake - D5 1/2NS at maintenance 100 mL/hr as long as not taking POs - electrolytes WNL # hyperNa - resolved # catatonia - management as per psychiatry Quality Stroke Does the patient have a stroke diagnosis?: No VTE Prior VTE?: No VTE Risk Level:: Medical - moderate - high VTE Device Contraindication: N/A - Device Ordered VTE Drug Contraindication: N/A - Med Ordered
--- NOTE | 2021-09-16 09:50 | P.CNHO_ITS ---
Subjective - Subjective Chief complaint: None Patient: new to practice Consult date: 09/16/21 Requesting Physician: Dr. Calvillo Primary Care Provider: Unknown Physician HPI - Consult Narrative Reason for consult: Left leg DVT Narrative: Steffi Robertson is a 65 year old female who has been admitted to [facility] psychiatric lee since 09/08/2021. She underwent elective left total knee replacement in August 2021 and was discharged to SNF on 08/13/2021. She was discharged on ASA for DVT prophylaxis. She presented to [facility] ED on 09/05/20 for LLE pain and was diagnosed with a L tibial DVT. She was put on Eliquis. Unfortunately since onset of acute psychiatric problems, she has refused oral medications. She was started on Lovenox on 09/09/2021. From 09/11/2021 she developed a rash on torso and bilateral upper extremities. This was felt to be related to Lovenox as this is only new medication she has been on. This has been discontinued and there is some improvement in rash. However she continues to refuse oral anticoagulants. She offers no complaints other than nodding yes when asked if she has a rash and has pain in her leg. Review of Systems - Neurologic Reports no additional neurologic complaints, Denies abnormal speech, Denies dizziness, Denies headache(s), Denies numbness, Denies tingling, Denies weakness PMFSH Medical History: Medical History (Last Reviewed 09/14/21 @ 09:10 by Audrey Nguyen, PT) Anxiety Bipolar 1 disorder Constipation GERD (gastroesophageal reflux disease) History of electroconvulsive therapy Hx of skin cancer, basal cell Hx of thyroid nodule Insomnia Murmur, cardiac Osteopenia Seasonal allergies Surgical History: Surgical History (Last Reviewed 09/14/21 @ 09:10 by Audrey Nguyen, PT) H/O elbow surgery History of back surgery Hx of colonoscopy Social History: Social History (Last Reviewed 09/12/21 @ 11:46 by Panda Botello MD) Living Situation History: Housing: Assisted Living Facility Are you a primary healthcare prof to a significant other at home: No Do you presently have visiting nurse or other home services: Yes Do you presently have visiting nurse or other home services comment: [employer] 3 hours once a week Alcohol History: Unable to assess alcohol history related to: Unable to respond Alcohol History Details: Currently Displaying Signs/Symptoms of Alcohol Withdrawal: No Tobacco History: Patient Tobacco Use Status: Former Tobacco user Tobacco use type: Cigarette Years Smoked: 30+, now vapes Smoke Quit Date: 06/20/2021 cigarettes Additional Comments: Unclear. Patient remained silent, unable to participate in assessment. Substance Use History: Use of substances other than those prescribed or required for medical reasons : Unknown Currently Displaying Signs/Symptoms of Drug Intoxication Withdrawal: No Healthcare Practices: Spiritual Healthcare Practices: Unclear. Patient remained silent, unable to participate in assessment. Worship Healthcare Practices: Unclear. Patient remained silent, unable to participate in assessment. Cultural Healthcare Practices: Unclear. Patient remained silent, unable to participate in assessment. Advance Directives: Advance Directives: No Advance Directives Information Provided: Yes Healthcare Proxy: No Guardian: No Homicidal Assessment: Do you have thoughts of harming others: None Do you have a plan to hurt others: No Plan Nutrition Assessment: Recently lost weight without trying: Unsure Occupation Assessmet: service: No Current occupational status: unemployed Current occupational status: retired 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 Sex/Gender Assessment: Sexual orientation: Px. presenting disorganized behavior when being int erviewed. Home Medications and Allergies Current Medications: Current Medications Acetaminophen (Acetaminophen 325 Mg Tablet) 650 mg PO Q6H PRN PRN Reason: Fever Or Pain Al Hydroxide/Mg Hydroxide (Magnesium Hydrox/Alum Hydrox 30 Ml Oral.Susp) 30 ml PO Q6H PRN PRN Reason: Heartburn/Nausea Betamethasone Dipropion Augmented (Betamethasone Dip Aug 0.05% Cr 15 Gm Tube) 1 appl TOPICAL BID [facility]; Protocol Stop: 09/20/21 15:18 Last Admin: 09/15/21 21:42 Dose: Not Given Documented by: Calcium Carbonate/Cholecalciferol (Calcium + Vitamin D 250 Mg Tablet) 250 mg PO DAILY [facility] Last Admin: 09/15/21 10:22 Dose: Not Given Documented by: Docusate Sodium (Docusate Sodium 100 Mg Capsule) 100 mg PO BID [facility] Last Admin: 09/15/21 21:42 Dose: Not Given Documented by: Fluticasone Propionate (Fluticasone Propionate Nasal 16 Gm [place]) 1 spray NOSTRIL-B DAILY PRN PRN Reason: Allergy Symptoms Fondaparinux (Fondaparinux Sodium 7.5 Mg/0.6 Ml Syringe) 7.5 mg SUBCUT Q24H [facility] Gabapentin (Gabapentin 400 Mg Capsule) 800 mg PO BEDTIME [facility] Last Admin: 09/15/21 21:43 Dose: Not Given Documented by: Hydrocortisone (Hydrocortisone 1 % Cream 28.35 Gm Tube) 1 appl TOPICAL BID PRN PRN Reason: rash Lactulose (Lactulose 20 Gm/30 Ml Solution) 10 gm PO BID PRN PRN Reason: constipation Loratadine (Loratadine 10 Mg Tablet) 10 mg PO DAILY [facility] Last Admin: 09/15/21 10:22 Dose: Not Given Documented by: Lorazepam (Lorazepam 1 Mg Tablet) 2 mg PO TID [facility] Last Admin: 09/15/21 21:42 Dose: Not Given Documented by: Magnesium Hydroxide (Milk Of Magnesia 30 Ml Oral.Susp) 30 ml PO DAILY PRN PRN Reason: Constipation Melatonin (Melatonin 3 Mg Tablet) 9 mg PO BEDTIME [facility] Last Admin: 09/15/21 21:42 Dose: Not Given Documented by: Multivitamins/Vitamin C (Multivitamin Tablet) 1 tab PO DAILY [facility] Last Admin: 09/15/21 10:23 Dose: Not Given Documented by: Omeprazole (Omeprazole 20 Mg Capsule.Dr) 20 mg PO BID@0630,1630 [facility] Last Admin: 09/15/21 14:51 Dose: Not Given Documented by: Oxycodone HCl (Oxycodone Hcl Er 10 Mg Tab.Er.12h) 10 mg PO Q12H [facility] Last Admin: 09/13/21 11:35 Dose: Not Given Documented by: Oxycodone HCl (Oxycodone Hcl Immed Release 5 Mg Tablet) 5 mg PO Q6H PRN PRN Reason: Pain, Mild (Pain Scale 1-3) Prednisone (Prednisone 20 Mg Tablet) 40 mg PO DAILY [facility] Stop: 09/17/21 16:14 Last Admin: 09/15/21 10:23 Dose: Not Given Documented by: Quetiapine Fumarate (Quetiapine Fumarate 100 Mg Tablet) 100 mg PO BEDTIME PRN PRN Reason: Insomnia Quetiapine Fumarate (Quetiapine Fumarate 400 Mg Tablet) 400 mg PO BEDTIME [facility] Last Admin: 09/15/21 21:42 Dose: Not Given Documented by: Trazodone HCl (Trazodone Hcl 50 Mg Tablet) 50 mg PO BEDTIME PRN PRN Reason: Insomnia Home Medications Medication Instructions Recorded Confirmed Type omeprazole 20 mg capsule,delayed 20 mg PO BID 11/08/21 03/10/22 History release biotin 5,000 mcg sublingual tablet 5,000 mcg SUBLINGUAL DAILY 07/21/21 09/08/21 History calcium carbonate 600 mg-vitamin 1 tab PO DAILY #0 07/21/21 09/08/21 History D3 5 mcg (200 unit) tablet docusate sodium 100 mg capsule 1 cap PO BID 07/21/21 09/08/21 History fluticasone propionate 50 1 spray INTRANASAL DAILY PRN 07/21/21 09/08/21 History mcg/actuation nasal spray,suspension gabapentin 400 mg capsule 800 mg PO BEDTIME 07/21/21 09/08/21 History loratadine 10 mg tablet (Claritin) 10 mg PO DAILY PRN 07/21/21 09/08/21 History melatonin 5 mg tablet 10 mg PO BEDTIME 07/21/21 09/08/21 History multivitamin 1 tab PO DAILY 07/21/21 09/08/21 History quetiapine 400 mg tablet 800 mg PO BEDTIME 07/21/21 09/08/21 History lactulose 10 gram/15 mL oral 15 ml PO BID PRN 09/05/21 09/08/21 History solution lorazepam 0.5 mg tablet 1 tab PO BEDTIME PRN 09/05/21 09/08/21 History quetiapine 100 mg tablet 100 mg PO BEDTIME PRN 09/05/21 09/08/21 History acetaminophen 325 mg tablet 650 mg PO Q6H PRN 09/08/21 09/08/21 History apixaban 5 mg (74 tabs) tablets in 10 mg PO BID 09/08/21 09/08/21 History a dose pack (Eliquis DVT-PE Treat 30D Start) apixaban 5 mg tablet 5 mg PO BID 09/08/21 09/08/21 History lorazepam 0.5 mg tablet (Ativan) 0.5 mg PO Q6H PRN 09/08/21 09/08/21 History oxycodone 10 mg tablet,crush 10 mg PO Q12H 09/08/21 09/08/21 History resistant,extended release 12 hr (OxyContin) oxycodone 5 mg tablet 5 mg PO Q4H PRN 09/08/21 09/08/21 History Allergies Allergy/AdvReac Type Severity Reaction Status Date / Time bee pollen Allergy Severe Anaphylaxis Verified 08/25/21 12:46 levofloxacin [From Levaquin] Allergy Severe Itching Verified 08/25/21 12:46 enoxaparin [From Lovenox] Allergy Intermediate Rash Verified 09/12/21 13:58 Penicillins Allergy Unknown Unknown Verified 08/25/21 12:46 Physical Exam Vital signs: Vital Signs Temp 97.2 F 09/16/21 08:20 Pulse 84 09/16/21 08:20 Resp 16 09/16/21 08:20 BP 140/73 H 09/16/21 08:20 Pulse Ox 96 09/16/21 08:20 Intake & Output 09/15/21 09/16/21 09/16/21 18:59 06:59 18:59 Other: Weight 62.142 kg [place] Weight in Grams 83651.154 Weight 62.142 kg - Constitutional Present: no acute distress - Routine HEENT Exam Head: Present: normal inspection - Routine Neck Exam Absent: lymphadenopathy - Routine Respiratory Exam Absent: accessory muscle use - Routine Cardiovascular Exam Cardiovascular: Present: S1, S2 - Routine Extremities Exam Present: joint swelling Comments: Slight swelling of left leg, healed scar over left knee joint. - Routine Neurological Exam Present: altered mental status Hem/Onc Consult Result - Labs CBC & Chem 7: 09/14/21 07:24 09/16/21 08:46 Labs: BMP 09/16/21 08:46 Sodium 141 Potassium 4.2 Chloride 106 Carbon Dioxide 23 BUN 24 H Creatinine 0.68 Calcium 9.8 Assessment and Plan Patient Active problem list reviewed?: Yes (1) Acute deep vein thrombosis (DVT) of left tibial vein Status: Acute Assessment and plan: 1. This is a 65-year-old woman with left lower extremity DVT after surgery, left total knee replacement in August 2021. Unfortunately, because of her psychiatric issues, she is not willing to take oral anticoagulants. She appears to have developed a rash with Lovenox which is rare but possible. One option is to try fondaparinux or Arixtra as an alternative. If she develops recurrent rash with this then she will have to be switched to argatroban. Duration of anticoagulation is 3 months. I thank you for this consultation. - Time Spent With Patient Time Spent with Patient (in minutes): 15
--- NOTE | 2021-09-16 12:02 | HO.PSYCHPN ---
Subjective Subjective Date of Service: 09/16/21 Reason For Visit: Psychosis Interim History: pt seen in her room, sleeping initially. rousable to voice. labile, disorganized, appearing paranoid. unable to consent to treatment. per staff, no food in the past 2 days. dark urine. delusional, self-dialoguing. sleeping on and off. upper left leg swollen and painful, declining pain meds. refused morning meds today. Mental Status Exam Mental Status Exam Narrative: Pt is rousable and then quite alert. She is in hospital attire, disorganized, unable to collaborate in her care, fair eye contact, variably attentive. disorganized thoughts. paranoid/mistrustful. affect constricted, irritable. expresses SI. no HI/AVH expressed. Patient Appearance: Disheveled Diagnostics Vital Signs (24Hr): Vital Signs - 24 hr 09/15/21 15:19 09/15/21 20:00 09/15/21 23:59 Temperature 98.9 F 98.1 F 98.1 F Pulse Rate 88 85 84 Respiratory Rate 17 16 12 Blood Pressure 138/65 143/68 H 125/66 Pulse Oximetry 98 95 97 09/16/21 05:27 09/16/21 08:20 Temperature 97.9 F 97.2 F Pulse Rate 85 84 Respiratory Rate 15 16 Blood Pressure 144/75 H 140/73 H Pulse Oximetry 97 96 BMI result Body Mass Index 22.1 Labs Results: 09/14/21 07:24 09/16/21 08:46 Labs: Laboratory Results - last 48 hr 09/16/21 08:46 Sodium 141 Potassium 4.2 Chloride 106 Carbon Dioxide 23 Anion Gap 16 BUN 24 H Creatinine 0.68 Estim Creat Clear Calc 79.2 Estimated GFR > 60 Random Glucose 97 Calcium 9.8 Magnesium 2.3 Imaging Radiology Impressions: ITS Impressions Head CT 09/13/21 12:37 IMPRESSION: No acute intracranial findings. Medications Medications Current Medications Acetaminophen (Acetaminophen 325 Mg Tablet) 650 mg PO Q6H PRN PRN Reason: Fever Or Pain Al Hydroxide/Mg Hydroxide (Magnesium Hydrox/Alum Hydrox 30 Ml Oral.Susp) 30 ml PO Q6H PRN PRN Reason: Heartburn/Nausea Betamethasone Dipropion Augmented (Betamethasone Dip Aug 0.05% Cr 15 Gm Tube) 1 appl TOPICAL BID [facility]; Protocol Stop: 09/20/21 15:18 Last Admin: 09/16/21 10:17 Dose: Not Given Documented by: Calcium Carbonate/Cholecalciferol (Calcium + Vitamin D 250 Mg Tablet) 250 mg PO DAILY [facility] Last Admin: 09/16/21 10:17 Dose: Not Given Documented by: Docusate Sodium (Docusate Sodium 100 Mg Capsule) 100 mg PO BID [facility] Last Admin: 09/16/21 10:17 Dose: Not Given Documented by: Fluticasone Propionate (Fluticasone Propionate Nasal 16 Gm [place]) 1 spray NOSTRIL-B DAILY PRN PRN Reason: Allergy Symptoms Fondaparinux (Fondaparinux Sodium 7.5 Mg/0.6 Ml Syringe) 7.5 mg SUBCUT Q24H [facility] Gabapentin (Gabapentin 400 Mg Capsule) 800 mg PO BEDTIME [facility] Last Admin: 09/15/21 21:43 Dose: Not Given Documented by: Hydrocortisone (Hydrocortisone 1 % Cream 28.35 Gm Tube) 1 appl TOPICAL BID PRN PRN Reason: rash Lactulose (Lactulose 20 Gm/30 Ml Solution) 10 gm PO BID PRN PRN Reason: constipation Loratadine (Loratadine 10 Mg Tablet) 10 mg PO DAILY [facility] Last Admin: 09/16/21 10:17 Dose: Not Given Documented by: Lorazepam (Lorazepam 1 Mg Tablet) 2 mg PO TID [facility] Last Admin: 09/16/21 10:17 Dose: Not Given Documented by: Magnesium Hydroxide (Milk Of Magnesia 30 Ml Oral.Susp) 30 ml PO DAILY PRN PRN Reason: Constipation Melatonin (Melatonin 3 Mg Tablet) 9 mg PO BEDTIME [facility] Last Admin: 09/15/21 21:42 Dose: Not Given Documented by: Multivitamins/Vitamin C (Multivitamin Tablet) 1 tab PO DAILY [facility] Last Admin: 09/16/21 10:18 Dose: Not Given Documented by: Omeprazole (Omeprazole 20 Mg Capsule.Dr) 20 mg PO BID@0630,1630 [facility] Last Admin: 09/16/21 10:17 Dose: Not Given Documented by: Oxycodone HCl (Oxycodone Hcl Er 10 Mg Tab.Er.12h) 10 mg PO Q12H [facility] Last Admin: 09/13/21 11:35 Dose: Not Given Documented by: Oxycodone HCl (Oxycodone Hcl Immed Release 5 Mg Tablet) 5 mg PO Q6H PRN PRN Reason: Pain, Mild (Pain Scale 1-3) Prednisone (Prednisone 20 Mg Tablet) 40 mg PO DAILY [facility] Stop: 09/17/21 16:14 Last Admin: 09/16/21 10:18 Dose: Not Given Documented by: Quetiapine Fumarate (Quetiapine Fumarate 100 Mg Tablet) 100 mg PO BEDTIME PRN PRN Reason: Insomnia Quetiapine Fumarate (Quetiapine Fumarate 400 Mg Tablet) 400 mg PO BEDTIME [facility] Last Admin: 09/15/21 21:42 Dose: Not Given Documented by: Trazodone HCl (Trazodone Hcl 50 Mg Tablet) 50 mg PO BEDTIME PRN PRN Reason: Insomnia Allergies Allergies Allergy/AdvReac Type Severity Reaction Status Date / Time bee pollen Allergy Severe Anaphylaxis Verified 08/25/21 12:46 levofloxacin [From Levaquin] Allergy Severe Itching Verified 08/25/21 12:46 enoxaparin [From Lovenox] Allergy Intermediate Rash Verified 09/12/21 13:58 Penicillins Allergy Unknown Unknown Verified 08/25/21 12:46 Assessment & Plan Assessment & Plan (1) Bipolar 1 disorder: Status: Acute Code(s): F31.9 - Bipolar disorder, unspecified (2) Acute deep vein thrombosis (DVT) of left tibial vein: Status: Acute Code(s): I82.442 - Acute embolism and thrombosis of left tibial vein Assessment and Plan: 65yo F with a L TKA last month who developed a LLE DVT, diagnosed about 1 week ago, treated with apixaban initially but once she refused PO intake from catatonia, she was switched to enoxaparin but then developed a rash. Hospitalists consulted for management of DVT + dehydration. # LLE DVT # rash to enoxaparin - while not taking POs, will anticoagulate with fondaparinux 7.5 mg SQ daily # inadequate PO intake - IV fluids PRN per Dr. Calvillo - electrolytes WNL # hyperNa - resolved Plan ativan 2 mg TID for catatonia, which has now resolved.? continue the medication to reduce anxiety/paranoia/mixed lucrecia for now. give usual home meds except for the following: hold oxycontin for now. fondaparinux 7.5 mg SQ daily for clot prophylaxis. hospitalist to review medical circumstance daily.? hospitalist input and involvement appreciated. call placed to hospital insurance counselor for advice on allowable interventions; cannot involuntarily treat medical illnesses on psych unit, would have to be transferred to medicine should that be necessary. court next sunday. I spent ___45___ minutes with the patient and/or on the patient floor today, greater than?50% of which was spent counseling/coordinating care. Reason for contiued inpatient stay Substantial Risk for: inability to function and rapid decompensation
[2021-09-16] MEDS: Fondaparinux Sodium 7.5 MG/0.6 ML SYRINGE SUBCUT (12:40)
--- NOTE | 2021-09-16 18:16 | PC.NURSE ---
Patient encouraged to take PO meds, foods, and fluids but refused all throughout shift. In later morning patient was observed with an unsteady gait. Gait belt was placed on patient and was escorted to room to sit down. Patient remains on 1:1 for safety d/t fall risk.
[2021-09-17] VITALS: RESP 15
[2021-09-17 05:35] VITALS: RESP 15
[2021-09-17 08:49] VITALS: BP 134/81; PULSE 109; RESP 18; TEMP 36.7; O2SAT 97
--- NOTE | 2021-09-17 10:01 | PC.NURSE ---
Jia Garcia in to initiate IV. Patient educated, and multiple approaches attempted without success- patient becamne increasingly anxious, declined to have IV inserted. Dr Calvillo notified.
--- NOTE | 2021-09-17 10:36 | HO.PM.IMPN ---
Subjective Subjective Date of Service: 09/17/21 Interval History: Refusing POs Review of Systems Review of Systems: Yes Unobtainable due to mental status Physical Exam Vital Signs: Vital Signs: Last Vital Signs Temp 98.1 F 09/17/21 08:49 Pulse 109 H 09/17/21 08:49 Resp 18 09/17/21 08:49 BP 134/81 09/17/21 08:49 Pulse Ox 97 09/17/21 08:49 BMI result Body Mass Index 22.1 Gen: catatonic HEENT: dry MM Lungs: clear to auscultation bilaterally Heart: regular rate and rhythm, no murmurs Abd: soft, non-tender, non-distended Ext: LLE calf swollen Skin: faint eczematous macules and patches on arms, torso, and back Psych: catatonic Objective Data Active Medications Acetaminophen (Acetaminophen 325 Mg Tablet) 650 mg PO Q6H PRN PRN Reason: Fever Or Pain Al Hydroxide/Mg Hydroxide (Magnesium Hydrox/Alum Hydrox 30 Ml Oral.Susp) 30 ml PO Q6H PRN PRN Reason: Heartburn/Nausea Betamethasone Dipropion Augmented (Betamethasone Dip Aug 0.05% Cr 15 Gm Tube) 1 appl TOPICAL BID [facility]; Protocol Stop: 09/20/21 15:18 Last Admin: 09/17/21 01:12 Dose: Not Given Documented by: DORA Non-Admin Reason: Patient Refused Calcium Carbonate/Cholecalciferol (Calcium + Vitamin D 250 Mg Tablet) 250 mg PO DAILY [facility] Last Admin: 09/16/21 10:17 Dose: Not Given Documented by: RUTH ANN Non-Admin Reason: Patient Refused Docusate Sodium (Docusate Sodium 100 Mg Capsule) 100 mg PO BID [facility] Last Admin: 09/16/21 22:27 Dose: Not Given Documented by: DORA Non-Admin Reason: Patient Refused Fluticasone Propionate (Fluticasone Propionate Nasal 16 Gm [place]) 1 spray NOSTRIL-B DAILY PRN PRN Reason: Allergy Symptoms Fondaparinux (Fondaparinux Sodium 7.5 Mg/0.6 Ml Syringe) 7.5 mg SUBCUT Q24H [facility] Last Admin: 09/16/21 12:40 Dose: 7.5 mg Documented by: SAGAR Gabapentin (Gabapentin 400 Mg Capsule) 800 mg PO BEDTIME [facility] Last Admin: 09/16/21 22:30 Dose: Not Given Documented by: DORA Non-Admin Reason: Patient Refused Hydrocortisone (Hydrocortisone 1 % Cream 28.35 Gm Tube) 1 appl TOPICAL BID PRN PRN Reason: rash Dextrose/Sodium Chloride (D51/2ns) 1,000 mls @ 100 mls/hr IVCONT .Q10H [facility] Stop: 09/18/21 04:44 Lactulose (Lactulose 20 Gm/30 Ml Solution) 10 gm PO BID PRN PRN Reason: constipation Loratadine (Loratadine 10 Mg Tablet) 10 mg PO DAILY [facility] Last Admin: 09/16/21 10:17 Dose: Not Given Documented by: RUTH ANN Non-Admin Reason: Patient Refused Lorazepam (Lorazepam 1 Mg Tablet) 2 mg PO TID [facility] Last Admin: 09/16/21 22:31 Dose: Not Given Documented by: DORA Non-Admin Reason: Patient Refused Magnesium Hydroxide (Milk Of Magnesia 30 Ml Oral.Susp) 30 ml PO DAILY PRN PRN Reason: Constipation Melatonin (Melatonin 3 Mg Tablet) 9 mg PO BEDTIME [facility] Last Admin: 09/16/21 22:31 Dose: Not Given Documented by: DORA Non-Admin Reason: Patient Refused Multivitamins/Vitamin C (Multivitamin Tablet) 1 tab PO DAILY [facility] Last Admin: 09/16/21 10:18 Dose: Not Given Documented by: RUTH ANN Non-Admin Reason: Patient Refused Omeprazole (Omeprazole 20 Mg Capsule.) 20 mg PO BID@0630,1630 [facility] Last Admin: 09/16/21 17:54 Dose: Not Given Documented by: RUTH ANN Non-Admin Reason: Patient Refused Oxycodone HCl (Oxycodone Hcl Er 10 Mg Tab.Er.12h) 10 mg PO Q12H [facility] Last Admin: 09/13/21 11:35 Dose: Not Given Documented by: KOBY Non-Admin Reason: Physician Held Med Oxycodone HCl (Oxycodone Hcl Immed Release 5 Mg Tablet) 5 mg PO Q6H PRN PRN Reason: Pain, Mild (Pain Scale 1-3) Prednisone (Prednisone 20 Mg Tablet) 40 mg PO DAILY [facility] Stop: 09/17/21 16:14 Last Admin: 09/16/21 10:18 Dose: Not Given Documented by: RUTH ANN Non-Admin Reason: Patient Refused Quetiapine Fumarate (Quetiapine Fumarate 100 Mg Tablet) 100 mg PO BEDTIME PRN PRN Reason: Insomnia Quetiapine Fumarate (Quetiapine Fumarate 400 Mg Tablet) 400 mg PO BEDTIME [facility] Last Admin: 09/16/21 22:31 Dose: Not Given Documented by: DORA Non-Admin Reason: Patient Refused Trazodone HCl (Trazodone Hcl 50 Mg Tablet) 50 mg PO BEDTIME PRN PRN Reason: Insomnia Labs CBC & Chem 7: 09/14/21 07:24 09/16/21 08:46 Assessment and Plan (1) Hypernatremia: Status: Acute (2) Hypercalcemia: Status: Acute Plan 65yo F s/p L TKA 08/09/21 who developed a LLE DVT diagnosed 09/05/21 treated with apixaban initially, but then refused PO intake from catatonia; switched to enoxaparin but then developed a rash. Hospitalists consulted for management of DVT + dehydration. # LLE DVT # rash to enoxaparin - while not taking POs, will anticoagulate with fondaparinux 7.5 mg SQ daily. apixaban 5 mg bid once taking POs. # inadequate PO intake - check electrolytes in AM, give 2L of matin[place] D5 1/2NS # hyperNa - resolved # catatonia - management as per psychiatry Quality Stroke Does the patient have a stroke diagnosis?: No VTE Prior VTE?: No VTE Risk Level:: Medical - moderate - high VTE Device Contraindication: N/A - Device Ordered VTE Drug Contraindication: N/A - Med Ordered
--- NOTE | 2021-09-17 10:46 | P.PNPSI_ITS ---
Subjective Subjective Date of Service: 09/17/21 Reason For Visit: Psychosis Medical Problems Affecting Mental Status: Yes (DVT) Interim History: Patient was seen and discussed in rounds today. She continues to decline medications, care. Very little food and water. She refused IV treatment that was ordered for her today. She continues to be very disorganized and paranoid and delusional. Sleeping has been spotty and erratic. Both nursing and I tried very hard to encouraged her to take her medication but she was very paranoid and refused. Vital signs have been stable Medication Compliance: No Review of Systems Review of Systems Yes unobtainable due to endotracheal tube Mental Status Exam Mental Status Exam Narrative: In today's visit she is alert. Speech is scant and unable to answer appropriately questions asked. Minimal to no eye contact. Affect is irritable. Moderate anxiety present. There are indications of psychotic symptoms in delusions. Could not assess suicidality. Judgment is impaired. Continue to encourage compliance Diagnostics Vital Signs (24Hr): Vital Signs - 24 hr 09/16/21 13:00 09/16/21 13:15 09/16/21 13:30 Temperature 98.3 F 97.8 F 97.9 F Pulse Rate 97 99 104 H Respiratory Rate 16 16 15 Blood Pressure 130/84 129/81 132/86 Pulse Oximetry 97 96 97 09/16/21 17:37 09/16/21 20:36 09/17/21 00:00 Temperature 98.1 F 98.3 F Pulse Rate 96 92 Respiratory Rate 16 14 15 Blood Pressure 113/64 119/75 Pulse Oximetry 92 95 09/17/21 05:35 09/17/21 08:49 Temperature 98.1 F Pulse Rate 109 H Respiratory Rate 15 18 Blood Pressure 134/81 Pulse Oximetry 97 BMI result Body Mass Index 22.1 Labs Results: 09/14/21 07:24 09/16/21 08:46 Labs: Laboratory Results - last 48 hr 09/16/21 08:46 Sodium 141 Potassium 4.2 Chloride 106 Carbon Dioxide 23 Anion Gap 16 BUN 24 H Creatinine 0.68 Estim Creat Clear Calc 79.2 Estimated GFR > 60 Random Glucose 97 Calcium 9.8 Magnesium 2.3 Imaging Radiology Impressions: ITS Impressions Head CT 09/13/21 12:37 IMPRESSION: No acute intracranial findings. Medications Medications Current Medications Acetaminophen (Acetaminophen 325 Mg Tablet) 650 mg PO Q6H PRN PRN Reason: Fever Or Pain Al Hydroxide/Mg Hydroxide (Magnesium Hydrox/Alum Hydrox 30 Ml Oral.Susp) 30 ml PO Q6H PRN PRN Reason: Heartburn/Nausea Betamethasone Dipropion Augmented (Betamethasone Dip Aug 0.05% Cr 15 Gm Tube) 1 appl TOPICAL BID [facility]; Protocol Stop: 09/20/21 15:18 Last Admin: 09/17/21 01:12 Dose: Not Given Documented by: Calcium Carbonate/Cholecalciferol (Calcium + Vitamin D 250 Mg Tablet) 250 mg PO DAILY [facility] Last Admin: 09/16/21 10:17 Dose: Not Given Documented by: Docusate Sodium (Docusate Sodium 100 Mg Capsule) 100 mg PO BID [facility] Last Admin: 09/16/21 22:27 Dose: Not Given Documented by: Fluticasone Propionate (Fluticasone Propionate Nasal 16 Gm [place]) 1 spray NOSTRIL-B DAILY PRN PRN Reason: Allergy Symptoms Fondaparinux (Fondaparinux Sodium 7.5 Mg/0.6 Ml Syringe) 7.5 mg SUBCUT Q24H [facility] Last Admin: 09/16/21 12:40 Dose: 7.5 mg Documented by: Gabapentin (Gabapentin 400 Mg Capsule) 800 mg PO BEDTIME [facility] Last Admin: 09/16/21 22:30 Dose: Not Given Documented by: Hydrocortisone (Hydrocortisone 1 % Cream 28.35 Gm Tube) 1 appl TOPICAL BID PRN PRN Reason: rash Dextrose/Sodium Chloride (D51/2ns) 1,000 mls @ 100 mls/hr IVCONT .Q10H [facility] Stop: 09/18/21 04:44 Lactulose (Lactulose 20 Gm/30 Ml Solution) 10 gm PO BID PRN PRN Reason: constipation Loratadine (Loratadine 10 Mg Tablet) 10 mg PO DAILY [facility] Last Admin: 09/16/21 10:17 Dose: Not Given Documented by: Lorazepam (Lorazepam 1 Mg Tablet) 2 mg PO TID [facility] Last Admin: 09/16/21 22:31 Dose: Not Given Documented by: Magnesium Hydroxide (Milk Of Magnesia 30 Ml Oral.Susp) 30 ml PO DAILY PRN PRN Reason: Constipation Melatonin (Melatonin 3 Mg Tablet) 9 mg PO BEDTIME [facility] Last Admin: 09/16/21 22:31 Dose: Not Given Documented by: Multivitamins/Vitamin C (Multivitamin Tablet) 1 tab PO DAILY [facility] Last Admin: 09/16/21 10:18 Dose: Not Given Documented by: Omeprazole (Omeprazole 20 Mg Capsule.Dr) 20 mg PO BID@0630,1630 [facility] Last Admin: 09/16/21 17:54 Dose: Not Given Documented by: Oxycodone HCl (Oxycodone Hcl Er 10 Mg Tab.Er.12h) 10 mg PO Q12H [facility] Last Admin: 09/13/21 11:35 Dose: Not Given Documented by: Oxycodone HCl (Oxycodone Hcl Immed Release 5 Mg Tablet) 5 mg PO Q6H PRN PRN Reason: Pain, Mild (Pain Scale 1-3) Prednisone (Prednisone 20 Mg Tablet) 40 mg PO DAILY [facility] Stop: 09/17/21 16:14 Last Admin: 09/16/21 10:18 Dose: Not Given Documented by: Quetiapine Fumarate (Quetiapine Fumarate 100 Mg Tablet) 100 mg PO BEDTIME PRN PRN Reason: Insomnia Quetiapine Fumarate (Quetiapine Fumarate 400 Mg Tablet) 400 mg PO BEDTIME [facility] Last Admin: 09/16/21 22:31 Dose: Not Given Documented by: Trazodone HCl (Trazodone Hcl 50 Mg Tablet) 50 mg PO BEDTIME PRN PRN Reason: Insomnia Allergies Allergies Allergy/AdvReac Type Severity Reaction Status Date / Time bee pollen Allergy Severe Anaphylaxis Verified 08/25/21 12:46 levofloxacin [From Levaquin] Allergy Severe Itching Verified 08/25/21 12:46 enoxaparin [From Lovenox] Allergy Intermediate Rash Verified 09/12/21 13:58 Penicillins Allergy Unknown Unknown Verified 08/25/21 12:46 Assessment & Plan Assessment & Plan (1) Hypernatremia: Status: Acute Code(s): E87.0 - Hyperosmolality and hypernatremia (2) Hypercalcemia: Status: Acute Code(s): E83.52 - Hypercalcemia Plan 65yo F s/p L TKA 08/09/21 who developed a LLE DVT diagnosed 09/05/21 treated with apixaban initially, but then refused PO intake from catatonia; switched to enoxaparin but then developed a rash. Hospitalists consulted for management of DVT + dehydration. # LLE DVT # rash to enoxaparin - while not taking POs, will anticoagulate with fondaparinux 7.5 mg SQ daily. apixaban 5 mg bid once taking POs. # inadequate PO intake - check electrolytes in AM, give 2L of matinenance D5 1/2NS # hyperNa - resolved # catatonia - management as per psychiatry 09/17/2021: Continue to encourage to be compliant with care and medications. No changes were implemented today I spent minutes with the patient and/or on the patient floor today, greater than?50% of which was spent counseling/coordinating care. Reason for contiued inpatient stay Substantial Risk for: med/psych decompensation
--- NOTE | 2021-09-17 11:55 | PC.NURSE ---
Patient declined all medications. Patient is anxious, restless, disorganized. Dr. Hopkins notified.
[2021-09-17 12:00] VITALS: BP 149/78; PULSE 101; RESP 18; O2SAT 97
[2021-09-17] MEDS: Fondaparinux Sodium 7.5 MG/0.6 ML SYRINGE SUBCUT (13:47)
[2021-09-17 20:00] VITALS: RESP 15
[2021-09-18] VITALS: RESP 16
[2021-09-18 04:00] VITALS: RESP 15
--- NOTE | 2021-09-18 10:19 | P.PNPSI_ITS ---
Subjective Subjective Date of Service: 09/18/21 Reason For Visit: Psychosis Interim History: Patient was seen and discussed in rounds today. Records were reviewed. She continues to be quite psychotic but a little more redirectable. She has not been eating or drinking and has been refusing any care or medications. No behavioral problems. She does focus on other patients and gets involved than interactive with them. In today's visit she would not acknowledge my presence or respond to my questions. No dangerous behaviors other than her food and water intake. No changes were made Review of Systems Review of Systems Yes unobtainable due to endotracheal tube Diagnostics Vital Signs (24Hr): Vital Signs - 24 hr 09/17/21 12:00 09/17/21 20:00 09/18/21 00:00 Pulse Rate 101 H Respiratory Rate 18 15 16 Blood Pressure 149/78 H Pulse Oximetry 97 09/18/21 04:00 Pulse Rate Respiratory Rate 15 Blood Pressure Pulse Oximetry BMI result Body Mass Index 22.1 Labs Results: 09/14/21 07:24 09/16/21 08:46 Imaging Radiology Impressions: ITS Impressions Head CT 09/13/21 12:37 IMPRESSION: No acute intracranial findings. Medications Medications Current Medications Acetaminophen (Acetaminophen 325 Mg Tablet) 650 mg PO Q6H PRN PRN Reason: Fever Or Pain Al Hydroxide/Mg Hydroxide (Magnesium Hydrox/Alum Hydrox 30 Ml Oral.Susp) 30 ml PO Q6H PRN PRN Reason: Heartburn/Nausea Betamethasone Dipropion Augmented (Betamethasone Dip Aug 0.05% Cr 15 Gm Tube) 1 appl TOPICAL BID [facility]; Protocol Stop: 09/20/21 15:18 Last Admin: 09/18/21 09:19 Dose: Not Given Documented by: Calcium Carbonate/Cholecalciferol (Calcium + Vitamin D 250 Mg Tablet) 250 mg PO DAILY [facility] Last Admin: 09/18/21 09:19 Dose: Not Given Documented by: Docusate Sodium (Docusate Sodium 100 Mg Capsule) 100 mg PO BID [facility] Last Admin: 09/18/21 09:20 Dose: Not Given Documented by: Fluticasone Propionate (Fluticasone Propionate Nasal 16 Gm [place]) 1 spray NOSTRIL-B DAILY PRN PRN Reason: Allergy Symptoms Fondaparinux (Fondaparinux Sodium 7.5 Mg/0.6 Ml Syringe) 7.5 mg SUBCUT Q24H [facility] Last Admin: 09/17/21 13:47 Dose: 7.5 mg Documented by: Gabapentin (Gabapentin 400 Mg Capsule) 800 mg PO BEDTIME [facility] Last Admin: 09/17/21 21:08 Dose: Not Given Documented by: Hydrocortisone (Hydrocortisone 1 % Cream 28.35 Gm Tube) 1 appl TOPICAL BID PRN PRN Reason: rash Dextrose/Sodium Chloride (D51/2ns) 1,000 mls @ 100 mls/hr IVCONT .Q10H [facility] Stop: 09/19/21 03:29 Lactulose (Lactulose 20 Gm/30 Ml Solution) 10 gm PO BID PRN PRN Reason: constipation Loratadine (Loratadine 10 Mg Tablet) 10 mg PO DAILY [facility] Last Admin: 09/18/21 09:20 Dose: Not Given Documented by: Magnesium Hydroxide (Milk Of Magnesia 30 Ml Oral.Susp) 30 ml PO DAILY PRN PRN Reason: Constipation Melatonin (Melatonin 3 Mg Tablet) 9 mg PO BEDTIME [facility] Last Admin: 09/17/21 21:09 Dose: Not Given Documented by: Multivitamins/Vitamin C (Multivitamin Tablet) 1 tab PO DAILY [facility] Last Admin: 09/18/21 09:20 Dose: Not Given Documented by: Omeprazole (Omeprazole 20 Mg Capsule.Dr) 20 mg PO BID@0630,1630 [facility] Last Admin: 09/17/21 17:59 Dose: Not Given Documented by: Oxycodone HCl (Oxycodone Hcl Er 10 Mg Tab.Er.12h) 10 mg PO Q12H [facility] Last Admin: 09/13/21 11:35 Dose: Not Given Documented by: Quetiapine Fumarate (Quetiapine Fumarate 100 Mg Tablet) 100 mg PO BEDTIME PRN PRN Reason: Insomnia Quetiapine Fumarate (Quetiapine Fumarate 400 Mg Tablet) 400 mg PO BEDTIME [facility] Last Admin: 09/17/21 21:09 Dose: Not Given Documented by: Trazodone HCl (Trazodone Hcl 50 Mg Tablet) 50 mg PO BEDTIME PRN PRN Reason: Insomnia Allergies Allergies Allergy/AdvReac Type Severity Reaction Status Date / Time bee pollen Allergy Severe Anaphylaxis Verified 08/25/21 12:46 levofloxacin [From Levaquin] Allergy Severe Itching Verified 08/25/21 12:46 enoxaparin [From Lovenox] Allergy Intermediate Rash Verified 09/12/21 13:58 Penicillins Allergy Unknown Unknown Verified 08/25/21 12:46 Assessment & Plan Assessment & Plan (1) Hypernatremia: Status: Acute Code(s): E87.0 - Hyperosmolality and hypernatremia (2) Hypercalcemia: Status: Acute Code(s): E83.52 - Hypercalcemia Plan 65yo F s/p L TKA 08/09/21 who developed a LLE DVT diagnosed 09/05/21 treated with apixaban initially, but then refused PO intake from catatonia; switched to e noxaparin but then developed a rash. Hospitalists consulted for management of DVT + dehydration. # LLE DVT # rash to enoxaparin - while not taking POs, will anticoagulate with fondaparinux 7.5 mg SQ daily. apixaban 5 mg bid once taking POs. # inadequate PO intake - check electrolytes in AM, give 2L of matinenance D5 1/2NS # hyperNa - resolved # catatonia - management as per psychiatry 09/17/2021: Continue to encourage to be compliant with care and medications. No changes were implemented today 09/18/2021: Continue current plan and encouraged to take food and water and medications. I spent minutes with the patient and/or on the patient floor today, greater than?50% of which was spent counseling/coordinating care. Reason for contiued inpatient stay Substantial Risk for: med/psych decompensation
--- NOTE | 2021-09-18 10:41 | P.PNIM_ITS ---
Subjective Subjective Date of Service: 09/18/21 Interval History: Still refusing POs Appears to be responding to internal stimuli- ?hallucinating Review of Systems Review of Systems: Yes Unobtainable due to mental status Physical Exam Vital Signs: Vital Signs: Last Vital Signs Temp 98.1 F 09/17/21 08:49 Pulse 101 H 09/17/21 12:00 Resp 15 09/18/21 04:00 BP 149/78 H 09/17/21 12:00 Pulse Ox 97 09/17/21 12:00 BMI result Body Mass Index 22.1 Gen: disoriented HEENT: dry MM Lungs: clear to auscultation bilaterally Heart: regular rate and rhythm, no murmurs Abd: soft, non-tender, non-distended Ext: LLE calf swollen Skin: refused exam Psych: impaired insight Objective Data Active Medications Acetaminophen (Acetaminophen 325 Mg Tablet) 650 mg PO Q6H PRN PRN Reason: Fever Or Pain Al Hydroxide/Mg Hydroxide (Magnesium Hydrox/Alum Hydrox 30 Ml Oral.Susp) 30 ml PO Q6H PRN PRN Reason: Heartburn/Nausea Betamethasone Dipropion Augmented (Betamethasone Dip Aug 0.05% Cr 15 Gm Tube) 1 appl TOPICAL BID [facility]; Protocol Stop: 09/20/21 15:18 Last Admin: 09/18/21 09:19 Dose: Not Given Documented by: ALBERT Non-Admin Reason: Patient Refused Calcium Carbonate/Cholecalciferol (Calcium + Vitamin D 250 Mg Tablet) 250 mg PO DAILY [facility] Last Admin: 09/18/21 09:19 Dose: Not Given Documented by: ALBERT Non-Admin Reason: Patient Refused Docusate Sodium (Docusate Sodium 100 Mg Capsule) 100 mg PO BID [facility] Last Admin: 09/18/21 09:20 Dose: Not Given Documented by: ALBERT Non-Admin Reason: Patient Refused Fluticasone Propionate (Fluticasone Propionate Nasal 16 Gm [place]) 1 spray NOSTRIL-B DAILY PRN PRN Reason: Allergy Symptoms Fondaparinux (Fondaparinux Sodium 7.5 Mg/0.6 Ml Syringe) 7.5 mg SUBCUT Q24H [facility] Last Admin: 09/17/21 13:47 Dose: 7.5 mg Documented by: KOBY Gabapentin (Gabapentin 400 Mg Capsule) 800 mg PO BEDTIME [facility] Last Admin: 09/17/21 21:08 Dose: Not Given Documented by: DORA Non-Admin Reason: Patient Refused Hydrocortisone (Hydrocortisone 1 % Cream 28.35 Gm Tube) 1 appl TOPICAL BID PRN PRN Reason: rash Dextrose/Sodium Chloride (D51/2ns) 1,000 mls @ 100 mls/hr IVCONT .Q10H [facility] Stop: 09/19/21 03:29 Lactulose (Lactulose 20 Gm/30 Ml Solution) 10 gm PO BID PRN PRN Reason: constipation Loratadine (Loratadine 10 Mg Tablet) 10 mg PO DAILY [facility] Last Admin: 09/18/21 09:20 Dose: Not Given Documented by: ALBERT Non-Admin Reason: Patient Refused Magnesium Hydroxide (Milk Of Magnesia 30 Ml Oral.Susp) 30 ml PO DAILY PRN PRN Reason: Constipation Melatonin (Melatonin 3 Mg Tablet) 9 mg PO BEDTIME [facility] Last Admin: 09/17/21 21:09 Dose: Not Given Documented by: DORA Non-Admin Reason: Patient Refused Multivitamins/Vitamin C (Multivitamin Tablet) 1 tab PO DAILY [facility] Last Admin: 09/18/21 09:20 Dose: Not Given Documented by: ALBERT Non-Admin Reason: Patient Refused Omeprazole (Omeprazole 20 Mg [place].) 20 mg PO BID@0630,1630 [facility] Last Admin: 09/17/21 17:59 Dose: Not Given Documented by: KOBY Non-Admin Reason: Patient Refused Oxycodone HCl (Oxycodone Hcl Er 10 Mg Tab.Er.12h) 10 mg PO Q12H [facility] Last Admin: 09/13/21 11:35 Dose: Not Given Documented by: KOBY Non-Admin Reason: Physician Held Med Quetiapine Fumarate (Quetiapine Fumarate 100 Mg Tablet) 100 mg PO BEDTIME PRN PRN Reason: Insomnia Quetiapine Fumarate (Quetiapine Fumarate 400 Mg Tablet) 400 mg PO BEDTIME [facility] Last Admin: 09/17/21 21:09 Dose: Not Given Documented by: DORA Non-Admin Reason: Patient Refused Trazodone HCl (Trazodone Hcl 50 Mg Tablet) 50 mg PO BEDTIME PRN PRN Reason: Insomnia Labs CBC & Chem 7: 09/14/21 07:24 09/16/21 08:46 Assessment and Plan (1) Hypernatremia: Status: Acute (2) Hypercalcemia: Status: Acute Plan 65yo F admitted to inpatient psychiatry s/p L TKA 08/09/21 who developed a LLE DVT diagnosed 09/05/21 treated with apixaban initially, but then refused PO intake switched to enoxaparin but then developed a rash hospitalists consulted for management of DVT + dehydration. # LLE DVT # rash to enoxaparin - while not taking POs, continue fondaparinux 7.5 mg SQ daily. apixaban 5 mg bid once taking POs. # inadequate PO intake - draw BMP today. will give 2L of matinenance D5 1/2NS # hyperNa - resolved # catatonia - management as per psychiatry Quality Stroke Does the patient have a stroke diagnosis?: No VTE Prior VTE?: No VTE Risk Level:: Medical - moderate - high VTE Device Contraindication: N/A - Device Ordered VTE Drug Contraindication: N/A - Med Ordered
[2021-09-18 20:00] VITALS: BP 123/78; PULSE 104; RESP 18; TEMP 36.9; O2SAT 97
[2021-09-19] VITALS: RESP 18
[2021-09-19 04:00] VITALS: RESP 16
--- NOTE | 2021-09-19 06:00 | PC.NURSE ---
Patient had bed linens changed. patient had soiled bed.
[2021-09-19 09:21] VITALS: BP 127/68; PULSE 101; RESP 17; TEMP 36.8; O2SAT 96
[2021-09-19 09:34] LABS: Anion Gap 16 (12-20); Blood Urea Nitrogen 28 mg/dL (9-16); Calcium 9.3 mg/dL (8.4-10.2); Carbon Dioxide 21 mmol/L (22-29); Chloride 103 mmol/L (96-108); Creatinine Clr Calc Pharmacy 74.8; Estimated Glomerular Filt Rate > 60; Glucose Random 113 mg/dL (60-115); Potassium 3.8 mmol/L (3.3-5.1); Sodium 136 mmol/L (135-145)
[2021-09-19] MEDS: Fondaparinux Sodium 7.5 MG/0.6 ML SYRINGE SUBCUT (10:11)
--- NOTE | 2021-09-19 11:13 | P.PNIM_ITS ---
Subjective Subjective Date of Service: 09/19/21 Interval History: Reportedly had a small amount of PO liquids yesterday. Not talking. Had blood draw this AM. Review of Systems Review of Systems: Yes Unobtainable due to mental status Physical Exam Vital Signs: Vital Signs: Last Vital Signs Temp 98.3 F 09/19/21 09:21 Pulse 101 H 09/19/21 09:21 Resp 17 09/19/21 09:21 BP 127/68 09/19/21 09:21 Pulse Ox 96 09/19/21 09:21 BMI result Body Mass Index 22.1 Gen: catatonic Lungs: clear to auscultation bilaterally Heart: regular rate and rhythm, no murmurs Abd: soft, non-tender, non-distended Ext: LLE calf swollen Skin: rash resolved Objective Data Active Medications Acetaminophen (Acetaminophen 325 Mg Tablet) 650 mg PO Q6H PRN PRN Reason: Fever Or Pain Al Hydroxide/Mg Hydroxide (Magnesium Hydrox/Alum Hydrox 30 Ml Oral.Susp) 30 ml PO Q6H PRN PRN Reason: Heartburn/Nausea Betamethasone Dipropion Augmented (Betamethasone Dip Aug 0.05% Cr 15 Gm Tube) 1 appl TOPICAL BID [facility]; Protocol Stop: 09/20/21 15:18 Last Admin: 09/18/21 21:00 Dose: Not Given Documented by: RAFY Non-Admin Reason: Patient Refused Calcium Carbonate/Cholecalciferol (Calcium + Vitamin D 250 Mg Tablet) 250 mg PO DAILY [facility] Last Admin: 09/18/21 09:19 Dose: Not Given Documented by: ALBERT Non-Admin Reason: Patient Refused Docusate Sodium (Docusate Sodium 100 Mg Capsule) 100 mg PO BID [facility] Last Admin: 09/19/21 01:22 Dose: Not Given Documented by: RAFY Non-Admin Reason: Patient Refused Fluticasone Propionate (Fluticasone Propionate Nasal 16 Gm [place]) 1 spray NOSTRIL-B DAILY PRN PRN Reason: Allergy Symptoms Fondaparinux (Fondaparinux Sodium 7.5 Mg/0.6 Ml Syringe) 7.5 mg SUBCUT Q24H [facility] Last Admin: 09/19/21 10:11 Dose: 7.5 mg Documented by: RUTH ANN Gabapentin (Gabapentin 400 Mg Capsule) 800 mg PO BEDTIME [facility] Last Admin: 09/18/21 21:02 Dose: Not Given Documented by: RAFY Non-Admin Reason: Patient Refused Hydrocortisone (Hydrocortisone 1 % Cream 28.35 Gm Tube) 1 appl TOPICAL BID PRN PRN Reason: rash Lactated Ringer's (Lr) 1,000 mls @ 125 mls/hr IVCONT .Q8H [facility] Stop: 09/20/21 00:59 Lactulose (Lactulose 20 Gm/30 Ml Solution) 10 gm PO BID PRN PRN Reason: constipation Loratadine (Loratadine 10 Mg Tablet) 10 mg PO DAILY [facility] Last Admin: 09/18/21 09:20 Dose: Not Given Documented by: ALBERT Non-Admin Reason: Patient Refused Magnesium Hydroxide (Milk Of Magnesia 30 Ml Oral.Susp) 30 ml PO DAILY PRN PRN Reason: Constipation Melatonin (Melatonin 3 Mg Tablet) 9 mg PO BEDTIME [facility] Last Admin: 09/18/21 21:00 Dose: Not Given Documented by: RAFY Non-Admin Reason: Patient Refused Multivitamins/Vitamin C (Multivitamin Tablet) 1 tab PO DAILY [facility] Last Admin: 09/18/21 09:20 Dose: Not Given Documented by: ALBERT Non-Admin Reason: Patient Refused Omeprazole (Omeprazole 20 Mg Capsule.) 20 mg PO BID@0630,1630 [facility] Last Admin: 09/18/21 17:52 Dose: Not Given Documented by: ALBERT Non-Admin Reason: Patient Refused Oxycodone HCl (Oxycodone Hcl Er 10 Mg Tab.Er.12h) 10 mg PO Q12H [facility] Last Admin: 09/13/21 11:35 Dose: Not Given Documented by: KOBY Non-Admin Reason: Physician Held Med Quetiapine Fumarate (Quetiapine Fumarate 100 Mg Tablet) 100 mg PO BEDTIME PRN PRN Reason: Insomnia Quetiapine Fumarate (Quetiapine Fumarate 400 Mg Tablet) 400 mg PO BEDTIME [facility] Last Admin: 09/18/21 21:02 Dose: Not Given Documented by: RAFY Non-Admin Reason: Patient Refused Trazodone HCl (Trazodone Hcl 50 Mg Tablet) 50 mg PO BEDTIME PRN PRN Reason: Insomnia Labs CBC & Chem 7: 09/14/21 07:24 09/19/21 09:08 Labs: Laboratory Results - last 24 hr 09/19/21 09:08 Anion Gap 16 Estim Creat Clear Calc 74.8 Estimated GFR > 60 Random Glucose 113 Calcium 9.3 Assessment and Plan (1) Hypernatremia: Status: Acute (2) Hypercalcemia: Status: Acute Plan 65yo F admitted to inpatient psychiatry s/p L TKA 08/09/21 who developed a LLE DVT diagnosed 09/05/21 treated with apixaban initially, but then refused PO intake switched to enoxaparin but then developed a rash hospitalists consulted for management of DVT + concern for dehydration # LLE DVT # rash to enoxaparin - while not taking POs, continue fondaparinux 7.5 mg SQ daily [started 09/16, refused yesterday but took today]. resume apixaban 5 mg bid once taking POs. # inadequate PO intake - give 2L IV LR today. psych to address catatonia # hyperNa - resolved # catatonia - management as per psychiatry Quality Stroke Does the patient have a stroke diagnosis?: No VTE Prior VTE?: No VTE Risk Level:: Medical - moderate - high VTE Device Contraindication: N/A - Device Ordered VTE Drug Contraindication: N/A - Med Ordered
--- NOTE | 2021-09-19 13:26 | P.PNPSI_ITS ---
Subjective Subjective Date of Service: 09/19/21 Reason For Visit: Psychosis Interim History: pt seen in her room, lying in bed mid-morning, easily rousable. poor eye contact, asking for water, provided with two small bottles by 1:1 staff. she drank both. in response to questions about how her mood is and how she is feeling generally speaking, she answers repeatedly that she want water. MD notifies her of hearing tomorrow, which she acknowledges as if without a care. per staff, unable to engage in contacts with staff or attend groups. disorganized. drank 2 orange juices and 5 chloé ales as well as a small davidson sunday. sporadically accepting SC anti-coagulant. declined IV fluids yesterday. no labs since 09/14 until today. agitated, intrusive with RN as RN was attempting to provide care for other patients. refusing help with self- care, such as toileting. now appears to be urinating on herself and her bedding. Mental Status Exam Mental Status Exam Narrative: Pt is rousable. She is in hospital attire, disorganized, unable to collaborate in her care, poor eye contact, variably attentive. disorganized thoughts. less mistrustful. affect constricted, less irritable. no SI/HI/AVH expressed. Patient Appearance: Disheveled Diagnostics Vital Signs (24Hr): Vital Signs - 24 hr 09/18/21 20:00 09/19/21 00:00 09/19/21 04:00 Temperature 98.5 F Pulse Rate 104 H Respiratory Rate 18 18 16 Blood Pressure 123/78 Pulse Oximetry 97 09/19/21 09:21 Temperature 98.3 F Pulse Rate 101 H Respiratory Rate 17 Blood Pressure 127/68 Pulse Oximetry 96 BMI result Body Mass Index 22.1 Labs Results: 09/14/21 07:24 09/19/21 09:08 Labs: Laboratory Results - last 48 hr 09/19/21 09:08 Sodium 136 Potassium 3.8 Chloride 103 Carbon Dioxide 21 L Anion Gap 16 BUN 28 H Creatinine 0.72 Estim Creat Clear Calc 74.8 Estimated GFR > 60 Random Glucose 113 Calcium 9.3 Imaging Radiology Impressions: ITS Impressions Head CT 09/13/21 12:37 IMPRESSION: No acute intracranial findings. Medications Medications Current Medications Acetaminophen (Acetaminophen 325 Mg Tablet) 650 mg PO Q6H PRN PRN Reason: Fever Or Pain Al Hydroxide/Mg Hydroxide (Magnesium Hydrox/Alum Hydrox 30 Ml Oral.Susp) 30 ml PO Q6H PRN PRN Reason: Heartburn/Nausea Betamethasone Dipropion Augmented (Betamethasone Dip Aug 0.05% Cr 15 Gm Tube) 1 appl TOPICAL BID GRECIA; Protocol Stop: 09/20/21 15:18 Last Admin: 09/19/21 11:14 Dose: Not Given Documented by: Calcium Carbonate/Cholecalciferol (Calcium + Vitamin D 250 Mg Tablet) 250 mg PO DAILY [facility] Last Admin: 09/19/21 11:14 Dose: Not Given Documented by: Docusate Sodium (Docusate Sodium 100 Mg Capsule) 100 mg PO BID [facility] Last Admin: 09/19/21 11:14 Dose: Not Given Documented by: Fluticasone Propionate (Fluticasone Propionate Nasal 16 Gm [place]) 1 spray NOSTRIL-B DAILY PRN PRN Reason: Allergy Symptoms Fondaparinux (Fondaparinux Sodium 7.5 Mg/0.6 Ml Syringe) 7.5 mg SUBCUT Q24H [facility] Last Admin: 09/19/21 10:11 Dose: 7.5 mg Documented by: Gabapentin (Gabapentin 400 Mg Capsule) 800 mg PO BEDTIME [facility] Last Admin: 09/18/21 21:02 Dose: Not Given Documented by: Hydrocortisone (Hydrocortisone 1 % Cream 28.35 Gm Tube) 1 appl TOPICAL BID PRN PRN Reason: rash Lactated Ringer's (Lr) 1,000 mls @ 125 mls/hr IVCONT .Q8H [facility] Stop: 09/20/21 00:59 Last Admin: 09/19/21 13:06 Dose: Not Given Documented by: Lactulose (Lactulose 20 Gm/30 Ml Solution) 10 gm PO BID PRN PRN Reason: constipation Loratadine (Loratadine 10 Mg Tablet) 10 mg PO DAILY [facility] Last Admin: 09/19/21 11:14 Dose: Not Given Documented by: Magnesium Hydroxide (Milk Of Magnesia 30 Ml Oral.Susp) 30 ml PO DAILY PRN PRN Reason: Constipation Melatonin (Melatonin 3 Mg Tablet) 9 mg PO BEDTIME [facility] Last Admin: 09/18/21 21:00 Dose: Not Given Documented by: Multivitamins/Vitamin C (Multivitamin Tablet) 1 tab PO DAILY [facility] Last Admin: 09/19/21 11:14 Dose: Not Given Documented by: Omeprazole (Omeprazole 20 Mg Capsule.Dr) 20 mg PO BID@0630,1630 [facility] Last Admin: 09/19/21 11:13 Dose: Not Given Documented by: Oxycodone HCl (Oxycodone Hcl Er 10 Mg Tab.Er.12h) 10 mg PO Q12H [facility] Last Admin: 09/13/21 11:35 Dose: Not Given Documented by: Quetiapine Fumarate (Quetiapine Fumarate 100 Mg Tablet) 100 mg PO BEDTIME PRN PRN Reason: Insomnia Quetiapine Fumarate (Quetiapine Fumarate 400 Mg Tablet) 400 mg PO BEDTIME [facility] Last Admin: 09/18/21 21:02 Dose: Not Given Documented by: Trazodone HCl (Trazodone Hcl 50 Mg Tablet) 50 mg PO BEDTIME PRN PRN Reason: Insomnia Allergies Allergies Allergy/AdvReac Type Severity Reaction Status Date / Time bee pollen Allergy Severe Anaphylaxis Verified 08/25/21 12:46 levofloxacin [From Levaquin] Allergy Severe Itching Verified 08/25/21 12:46 enoxaparin [From Lovenox] Allergy Intermediate Rash Verified 09/12/21 13:58 Penicillins Allergy Unknown Unknown Verified 08/25/21 12:46 Assessment & Plan Assessment & Plan (1) Bipolar 1 disorder: Status: Acute Code(s): F31.9 - Bipolar disorder, unspecified (2) Acute deep vein thrombosis (DVT) of left tibial vein: Status: Acute Code(s): I82.442 - Acute embolism and thrombosis of left tibial vein (3) Hypernatremia: Status: Acute Code(s): E87.0 - Hyperosmolality and hypernatremia Assessment and Plan: 65yo F admitted to inpatient psychiatry s/p L TKA 08/09/21 who developed a LLE DVT diagnosed 09/05/21 treated with apixaban initially, but then refused PO intake switched to enoxaparin but then developed a rash hospitalists consulted for management of DVT + concern for dehydration # LLE DVT # rash to enoxaparin - while not taking POs, continue fondaparinux 7.5 mg SQ daily.. resume apixaban 5 mg bid once taking POs. # inadequate PO intake - fluids PO # hyperNa - resolved (4) Hypercalcemia: Status: Acute Code(s): E83.52 - Hypercalcemia Plan ativan 2 mg TID for catatonia, which has now resolved.? continue the medication to reduce anxiety/paranoia/mixed lucrecia for now. give usual home meds except for the following: hold oxycontin for now. fondaparinux 7.5 mg SQ daily for clot prophylaxis. hospitalist to review medical circumstance daily.? hospitalist input and involvement appreciated. call placed to hospital direct care counselor for advice on allowable interventions; cannot involuntarily treat medical illnesses on psych unit, would have to be transferred to medicine should that be necessary. court 09/20. I spent ___20___ minutes with the patient and/or on the patient floor today, greater than?50% of which was spent counseling/coordinating care. Reason for contiued inpatient stay Substantial Risk for: harm to self, inability to function and rapid decompensation
[2021-09-19 13:30] VITALS: BP 131/82; PULSE 110; RESP 18; TEMP 36.5
--- NOTE | 2021-09-19 15:44 | MHC.CLN ---
F/U PATIENT APPEARS TO HAVE POOR INTAKE AT MEALS. ACCEPTS FLUIDS. ADDING ENSURE TID TO PROVIDE ADDITIONAL 1050 KCAL, 60 G PROTEIN. SHOWS WEIGHT LOSS X ONE WEEK OF 21#, 13%. SUDDEN, SIGNIFICANT WEIGHT LOSS UNLIKELY. CONTINUE TO FOLLOW WEIGHTS AND INTAKE.
[2021-09-19 16:00] VITALS: BP 154/90; PULSE 90; RESP 18; TEMP 36.6; O2SAT 97
[2021-09-19 20:00] VITALS: RESP 16
[2021-09-20] VITALS: RESP 16
[2021-09-20 04:00] VITALS: RESP 16
[2021-09-20 09:01] VITALS: BP 117/75; PULSE 87; RESP 17; TEMP 36.5; O2SAT 96
[2021-09-20 13:36] VITALS: BP 136/83; PULSE 96; RESP 17; TEMP 36.6; O2SAT 99
[2021-09-20] MEDS: Fondaparinux Sodium 7.5 MG/0.6 ML SYRINGE SUBCUT (14:08)
--- NOTE | 2021-09-20 17:10 | HO.PSYCHPN ---
Subjective Subjective Date of Service: 09/20/21 Reason For Visit: Psychosis Interim History: pt seen ambulating in the [place]. unable to engage in discussion with MD gusman medications, repeating only, i want to leave the hospital. court held, pt committed and medications ordered. per staff, slept 8 hours. refused a.m. meds. drinking water throughout the day yesterday. irritable, self-dialoguing. asking for discharge. no meals/meds aside from the sub Q injection. checking urine for signs of infection. Mental Status Exam Mental Status Exam Narrative: pt walking the halls. She is in hospital attire, disorganized, unable to collaborate in her care, poor eye contact, variably attentive. disorganized thoughts. affect constricted, less irritable. no SI/HI/AVH expressed. Patient Appearance: Disheveled Diagnostics Vital Signs (24Hr): Vital Signs - 24 hr 09/19/21 20:00 09/20/21 00:00 09/20/21 04:00 Temperature Pulse Rate Respiratory Rate 16 16 16 Blood Pressure Pulse Oximetry 09/20/21 09:01 09/20/21 13:36 Temperature 97.7 F 97.8 F Pulse Rate 87 96 Respiratory Rate 17 17 Blood Pressure 117/75 136/83 Pulse Oximetry 96 99 BMI result Body Mass Index 22.1 Labs Results: 09/14/21 07:24 09/19/21 09:08 Labs: Laboratory Results - last 48 hr 09/19/21 09:08 Sodium 136 Potassium 3.8 Chloride 103 Carbon Dioxide 21 L Anion Gap 16 BUN 28 H Creatinine 0.72 Estim Creat Clear Calc 74.8 Estimated GFR > 60 Random Glucose 113 Calcium 9.3 Imaging Radiology Impressions: ITS Impressions Head CT 09/13/21 12:37 IMPRESSION: No acute intracranial findings. Medications Medications Current Medications Acetaminophen (Acetaminophen 325 Mg Tablet) 650 mg PO Q6H PRN PRN Reason: Fever Or Pain Al Hydroxide/Mg Hydroxide (Magnesium Hydrox/Alum Hydrox 30 Ml Oral.Susp) 30 ml PO Q6H PRN PRN Reason: Heartburn/Nausea Calcium Carbonate/Cholecalciferol (Calcium + Vitamin D 250 Mg Tablet) 250 mg PO DAILY [facility] Last Admin: 09/20/21 11:02 Dose: Not Given Documented by: Docusate Sodium (Docusate Sodium 100 Mg Capsule) 100 mg PO BID [facility] Last Admin: 09/20/21 11:03 Dose: Not Given Documented by: Fluticasone Propionate (Fluticasone Propionate Nasal 16 Gm [place]) 1 spray NOSTRIL-B DAILY PRN PRN Reason: Allergy Symptoms Fondaparinux (Fondaparinux Sodium 7.5 Mg/0.6 Ml Syringe) 7.5 mg SUBCUT Q24H [facility] Last Admin: 09/20/21 14:08 Dose: 7.5 mg Documented by: Gabapentin (Gabapentin 400 Mg Capsule) 800 mg PO BEDTIME [facility] Last Admin: 09/20/21 03:31 Dose: Not Given Documented by: Hydrocortisone (Hydrocortisone 1 % Cream 28.35 Gm Tube) 1 appl TOPICAL BID PRN PRN Reason: rash Lactulose (Lactulose 20 Gm/30 Ml Solution) 10 gm PO BID PRN PRN Reason: constipation Loratadine (Loratadine 10 Mg Tablet) 10 mg PO DAILY [facility] Last Admin: 09/20/21 11:03 Dose: Not Given Documented by: Magnesium Hydroxide (Milk Of Magnesia 30 Ml Oral.Susp) 30 ml PO DAILY PRN PRN Reason: Constipation Melatonin (Melatonin 3 Mg Tablet) 9 mg PO BEDTIME [facility] Last Admin: 09/20/21 03:31 Dose: Not Given Documented by: Multivitamins/Vitamin C (Multivitamin Tablet) 1 tab PO DAILY [facility] Last Admin: 09/20/21 11:03 Dose: Not Given Documented by: Omeprazole (Omeprazole 20 Mg Capsule.Dr) 20 mg PO BID@0630,1630 [facility] Last Admin: 09/20/21 11:02 Dose: Not Given Documented by: Oxycodone HCl (Oxycodone Hcl Er 10 Mg Tab.Er.12h) 10 mg PO Q12H [facility] Last Admin: 09/13/21 11:35 Dose: Not Given Documented by: Quetiapine Fumarate (Quetiapine Fumarate 100 Mg Tablet) 100 mg PO BEDTIME PRN PRN Reason: Insomnia Quetiapine Fumarate (Quetiapine Fumarate 400 Mg Tablet) 400 mg PO BEDTIME [facility] Last Admin: 09/20/21 03:31 Dose: Not Given Documented by: Quetiapine Fumarate (Quetiapine Fumarate 50 Mg Tablet) 50 mg PO Q4H PRN PRN Reason: anxiety Trazodone HCl (Trazodone Hcl 50 Mg Tablet) 50 mg PO BEDTIME PRN PRN Reason: Insomnia Allergies Allergies Allergy/AdvReac Type Severity Reaction Status Date / Time bee pollen Allergy Severe Anaphylaxis Verified 08/25/21 12:46 levofloxacin [From Levaquin] Allergy Severe Itching Verified 08/25/21 12:46 enoxaparin [From Lovenox] Allergy Intermediate Rash Verified 09/12/21 13:58 Penicillins Allergy Unknown Unknown Verified 08/25/21 12:46 Assessment & Plan Assessment & Plan (1) Bipolar 1 disorder: Status: Acute Code(s): F31.9 - Bipolar disorder, unspecified (2) Acute deep vein thrombosis (DVT) of left tibial vein: Status: Acute Code(s): I82.442 - Acute embolism and thrombosis of left tibial vein (3) Hypernatremia: Status: Acute Code(s): E87.0 - Hyperosmolality and hypernatremia Assessment and Plan: 65yo F admitted to inpatient psychiatry s/p L TKA 08/09/21 who developed a LLE DVT diagnosed 09/05/21 treated with apixaban initially, but then refused PO intake switched to enoxaparin but then developed a rash hospitalists consulted for management of DVT + concern for dehydration # LLE DVT # rash to enoxaparin - while not taking POs, continue fondaparinux 7.5 mg SQ daily.. resume apixaban 5 mg bid once taking POs. # inadequate PO intake - fluids PO # hyperNa - resolved (4) Hypercalcemia: Status: Acute Code(s): E83.52 - Hypercalcemia Plan ativan 2 mg TID for catatonia, which has now resolved.? continue the medication to reduce anxiety/paranoia/mixed lucrecia for now. give usual home meds except for the following: hold oxycontin for now. fondaparinux 7.5 mg SQ daily for clot prophylaxis. hospitalist to review medical circumstance daily.? hospitalist input and involvement appreciated. call placed to hospital diet counselor for advice on allowable interventions; cannot involuntarily treat medical illnesses on psych unit, would have to be transferred to medicine should that be necessary. committed and medications ordered by court 09/20. I spent ___35___ minutes with the patient and/or on the patient floor today, greater than?50% of which was spent counseling/coordinating care. Reason for contiued inpatient stay Substantial Risk for: harm to self, inability to function and rapid decompensation
--- NOTE | 2021-09-20 17:33 | HO.PM.IMPN ---
Subjective Subjective Date of Service: 09/20/21 Interval History: alert and interactive today. Agree to injection this a.m. Review of Systems unable to obtain Physical Exam Vital Signs: Vital Signs: Last Vital Signs Temp 97.8 F 09/20/21 13:36 Pulse 96 09/20/21 13:36 Resp 17 09/20/21 13:36 BP 136/83 09/20/21 13:36 Pulse Ox 99 09/20/21 13:36 BMI result Body Mass Index 22.1 Const: Other: no acute distress Resp: Other: clear to auscultation bilaterally no rales rhonchi wheezes Cardio: Other: no S4; positive S1-S2; no S3 murmurs or gallops GI: Other: soft nontender nondistended normoactive bowel sounds x4 quadrants Neuro: Other: cranial nerves 2-12 grossly intact as observed. Not cooperating with exam. Moving all extremities with equal power Extrem: Other: no edema Objective Data Active Medications Acetaminophen (Acetaminophen 325 Mg Tablet) 650 mg PO Q6H PRN PRN Reason: Fever Or Pain Al Hydroxide/Mg Hydroxide (Magnesium Hydrox/Alum Hydrox 30 Ml Oral.Susp) 30 ml PO Q6H PRN PRN Reason: Heartburn/Nausea Calcium Carbonate/Cholecalciferol (Calcium + Vitamin D 250 Mg Tablet) 250 mg PO DAILY [facility] Last Admin: 09/20/21 11:02 Dose: Not Given Documented by: RUTH ANN Non-Admin Reason: Patient Refused Docusate Sodium (Docusate Sodium 100 Mg Capsule) 100 mg PO BID [facility] Last Admin: 09/20/21 11:03 Dose: Not Given Documented by: RUTH ANN Non-Admin Reason: Patient Refused Fluticasone Propionate (Fluticasone Propionate Nasal 16 Gm [place]) 1 spray NOSTRIL-B DAILY PRN PRN Reason: Allergy Symptoms Fondaparinux (Fondaparinux Sodium 7.5 Mg/0.6 Ml Syringe) 7.5 mg SUBCUT Q24H [facility] Last Admin: 09/20/21 14:08 Dose: 7.5 mg Documented by: RUTH ANN Gabapentin (Gabapentin 400 Mg Capsule) 800 mg PO BEDTIME [facility] Last Admin: 09/20/21 03:31 Dose: Not Given Documented by: RAFY Non-Admin Reason: Patient Refused Hydrocortisone (Hydrocortisone 1 % Cream 28.35 Gm Tube) 1 appl TOPICAL BID PRN PRN Reason: rash Lactulose (Lactulose 20 Gm/30 Ml Solution) 10 gm PO BID PRN PRN Reason: constipation Loratadine (Loratadine 10 Mg Tablet) 10 mg PO DAILY [facility] Last Admin: 09/20/21 11:03 Dose: Not Given Documented by: RUTH ANN Non-Admin Reason: Patient Refused Magnesium Hydroxide (Milk Of Magnesia 30 Ml Oral.Susp) 30 ml PO DAILY PRN PRN Reason: Constipation Melatonin (Melatonin 3 Mg Tablet) 9 mg PO BEDTIME [facility] Last Admin: 09/20/21 03:31 Dose: Not Given Documented by: RAFY Non-Admin Reason: Patient Refused Multivitamins/Vitamin C (Multivitamin Tablet) 1 tab PO DAILY [facility] Last Admin: 09/20/21 11:03 Dose: Not Given Documented by: RUTH ANN Non-Admin Reason: Patient Refused Omeprazole (Omeprazole 20 Mg Capsule.) 20 mg PO BID@0630,1630 [facility] Last Admin: 09/20/21 11:02 Dose: Not Given Documented by: RUTH ANN Non-Admin Reason: Patient Refused Oxycodone HCl (Oxycodone Hcl Er 10 Mg Tab.Er.12h) 10 mg PO Q12H [facility] Last Admin: 09/13/21 11:35 Dose: Not Given Documented by: KOBY Non-Admin Reason: Physician Held Med Quetiapine Fumarate (Quetiapine Fumarate 100 Mg Tablet) 100 mg PO BEDTIME PRN PRN Reason: Insomnia Quetiapine Fumarate (Quetiapine Fumarate 400 Mg Tablet) 400 mg PO BEDTIME [facility] Last Admin: 09/20/21 03:31 Dose: Not Given Documented by: RAFY Non-Admin Reason: Patient Refused Quetiapine Fumarate (Quetiapine Fumarate 50 Mg Tablet) 50 mg PO Q4H PRN PRN Reason: anxiety Trazodone HCl (Trazodone Hcl 50 Mg Tablet) 50 mg PO BEDTIME PRN PRN Reason: Insomnia Labs CBC & Chem 7: 09/14/21 07:24 09/19/21 09:08 Assessment and Plan (1) Acute deep vein thrombosis (DVT) of left tibial vein: Status: Acute (2) Bipolar 1 disorder: Status: Acute Plan 65yo F admitted to inpatient psychiatry;s/p L TKA 08/09/21 who developed a LLE DVT diagnosed 09/05/21 treated with apixaban initially, but then refused PO intake switched to enoxaparin but then developed a rash;hospitalists consulted for management of DVT + concern for dehydration; drinking liquids today 1 LLE DVT - fondaparinux 7.5 mg SQ daily [started 09/16;taken today]. - resume apixaban 5 mg bid once taking POs. 2. Bipolar disorder - as per Psychiatry Quality Stroke Does the patient have a stroke diagnosis?: No VTE Prior VTE?: No VTE Risk Level:: Medical - moderate - high VTE Device Contraindication: N/A - Device Ordered VTE Drug Contraindication: N/A - Med Ordered
--- NOTE | 2021-09-20 18:04 | PC.NURSE ---
Patient refused PO meds, PO fluids, PO food throughout the shift. Patient requested seroquel, PRN order was obtained by this RN from the MD. Patient later refused seroquel despite multiple attempts. Patient repeatedly stating it is not seroquel, it smells funny . Patient also stating That is not water, why is it green . MD notified. Patient was exit seeking and observed pushing on exit doors during shift.
[2021-09-20 18:28] VITALS: BP 130/80; PULSE 96; RESP 17; TEMP 36.2; O2SAT 96
[2021-09-20 20:00] VITALS: BP 142/80; PULSE 90; RESP 14; TEMP 36.8; O2SAT 98
[2021-09-21] VITALS: RESP 14
[2021-09-21 04:00] VITALS: RESP 14
[2021-09-21 11:00] VITALS: BP 130/71; PULSE 76; RESP 14; TEMP 36.6; O2SAT 96
[2021-09-21] MEDS: Fondaparinux Sodium 7.5 MG/0.6 ML SYRINGE SUBCUT (11:08)
[2021-09-21] MEDS: LORazepam 2 MG/ML VIAL IM (11:38)
[2021-09-21 12:00] VITALS: BP 136/77; PULSE 76; RESP 16; TEMP 36.4; O2SAT 99
--- NOTE | 2021-09-21 15:39 | MHC.CLN ---
F/U PATIENT 1:1 IN ROOM. STAFF REPORTS THAT USUAL INTAKE IS POOR BUT TODAY ATE A LARGE AMOUNT OF FOOD AT LUNCH. LIKES CRUNCH OF CEREAL. ACCEPTS FLUIDS AND ENSURE SUPPLEMENT. ENSURE TID PROVIDES ADDITIONAL 1050 KCAL, 60 G PROTEIN. CONTINUE TO FOLLOW WEIGHTS AND INTAKE.
--- NOTE | 2021-09-21 16:46 | HO.PSYCHPN ---
Subjective Subjective Date of Service: 09/21/21 Reason For Visit: Psychosis Interim History: pt seen twice in her room in the morning. not rousable to voice, then rousable to sternal rub at second visit. she appeared very drowsy. she was provided with ativan 2 mg IM and was later more up and about, eating and drinking today. she declined mid-afternoon meds. per staff, showered yesterday. refused to take anything by mouth, refused sub Q injection of anti-coagulant. Mental Status Exam Mental Status Exam Narrative: Pt is rousable. She is in hospital attire, disorganized, unable to collaborate in her care, poor eye contact, variably attentive. disorganized thoughts. mistrustful. affect constricted, less irritable. no SI/HI/AVH expressed. Patient Appearance: Disheveled Diagnostics Vital Signs (24Hr): Vital Signs - 24 hr 09/20/21 18:28 09/20/21 20:00 09/21/21 00:00 Temperature 97.2 F 98.2 F Pulse Rate 96 90 Respiratory Rate 17 14 14 Blood Pressure 130/80 142/80 H Pulse Oximetry 96 98 09/21/21 04:00 09/21/21 11:00 09/21/21 12:00 Temperature 97.9 F 97.6 F Pulse Rate 76 76 Respiratory Rate 14 14 16 Blood Pressure 130/71 136/77 Pulse Oximetry 96 99 BMI result Body Mass Index 22.1 Labs Results: 09/14/21 07:24 09/19/21 09:08 Imaging Radiology Impressions: ITS Impressions Head CT 09/13/21 12:37 IMPRESSION: No acute intracranial findings. Medications Medications Current Medications Acetaminophen (Acetaminophen 325 Mg Tablet) 650 mg PO Q6H PRN PRN Reason: Fever Or Pain Al Hydroxide/Mg Hydroxide (Magnesium Hydrox/Alum Hydrox 30 Ml Oral.Susp) 30 ml PO Q6H PRN PRN Reason: Heartburn/Nausea Calcium Carbonate/Cholecalciferol (Calcium + Vitamin D 250 Mg Tablet) 250 mg PO DAILY [facility] Last Admin: 09/21/21 11:29 Dose: Not Given Documented by: Docusate Sodium (Docusate Sodium 100 Mg Capsule) 100 mg PO BID [facility] Last Admin: 09/21/21 11:29 Dose: Not Given Documented by: Fluticasone Propionate (Fluticasone Propionate Nasal 16 Gm [place]) 1 spray NOSTRIL-B DAILY PRN PRN Reason: Allergy Symptoms Fondaparinux (Fondaparinux Sodium 7.5 Mg/0.6 Ml Syringe) 7.5 mg SUBCUT Q24H [facility] Last Admin: 09/21/21 11:08 Dose: 7.5 mg Documented by: Gabapentin (Gabapentin 100 Mg Capsule) 200 mg PO TID [facility] Last Admin: 09/21/21 16:17 Dose: Not Given Documented by: Hydrocortisone (Hydrocortisone 1 % Cream 28.35 Gm Tube) 1 appl TOPICAL BID PRN PRN Reason: rash Lactulose (Lactulose 20 Gm/30 Ml Solution) 10 gm PO BID PRN PRN Reason: constipation Loratadine (Loratadine 10 Mg Tablet) 10 mg PO DAILY [facility] Last Admin: 09/21/21 11:30 Dose: Not Given Documented by: Lorazepam (Lorazepam 1 Mg Tablet) 1 mg PO TID [facility] Last Admin: 09/21/21 16:17 Dose: Not Given Documented by: Magnesium Hydroxide (Milk Of Magnesia 30 Ml Oral.Susp) 30 ml PO DAILY PRN PRN Reason: Constipation Melatonin (Melatonin 3 Mg Tablet) 9 mg PO BEDTIME [facility] Last Admin: 09/21/21 00:24 Dose: Not Given Documented by: Multivitamins/Vitamin C (Multivitamin Tablet) 1 tab PO DAILY [facility] Last Admin: 09/21/21 11:30 Dose: Not Given Documented by: Omeprazole (Omeprazole 20 Mg Capsule.Dr) 20 mg PO BID@0630,1630 [facility] Last Admin: 09/21/21 11:29 Dose: Not Given Documented by: Oxycodone HCl (Oxycodone Hcl Er 10 Mg Tab.Er.12h) 10 mg PO Q12H [facility] Last Admin: 09/13/21 11:35 Dose: Not Given Documented by: Quetiapine Fumarate (Quetiapine Fumarate 100 Mg Tablet) 100 mg PO BEDTIME PRN PRN Reason: Insomnia Quetiapine Fumarate (Quetiapine Fumarate 50 Mg Tablet) 50 mg PO Q4H PRN PRN Reason: anxiety Quetiapine Fumarate (Quetiapine Fumarate 200 Mg Tablet) 200 mg PO TID [facility] Last Admin: 09/21/21 16:17 Dose: Not Given Documented by: Trazodone HCl (Trazodone Hcl 50 Mg Tablet) 50 mg PO BEDTIME PRN PRN Reason: Insomnia Allergies Allergies Allergy/AdvReac Type Severity Reaction Status Date / Time bee pollen Allergy Severe Anaphylaxis Verified 08/25/21 12:46 levofloxacin [From Levaquin] Allergy Severe Itching Verified 08/25/21 12:46 enoxaparin [From Lovenox] Allergy Intermediate Rash Verified 09/12/21 13:58 Penicillins Allergy Unknown Unknown Verified 08/25/21 12:46 Assessment & Plan Assessment & Plan (1) Hypernatremia: Status: Acute Code(s): E87.0 - Hyperosmolality and hypernatremia (2) Hypercalcemia: Status: Acute Code(s): E83.52 - Hypercalcemia (3) Bipolar 1 disorder: Status: Acute Code(s): F31.9 - Bipolar disorder, unspecified Plan ativan 1 mg TID for recent catatonia.? continue the medication to reduce anxiety/paranoia/mixed lucrecia for now. give usual home meds except for the following: hold oxycontin for now. fondaparinux 7.5 mg SQ daily for clot prophylaxis. hospitalist to review medical circumstance daily.? hospitalist input and involvement appreciated. committed and medications ordered by court 09/20. olanzapine IM back-up for med refusal. I spent ___25___ minutes with the patient and/or on the patient floor today, greater than?50% of which was spent counseling/coordinating care. Reason for contiued inpatient stay Substantial Risk for: harm to self, inability to function and rapid decompensation
[2021-09-21 20:00] VITALS: BP 117/69; PULSE 90; RESP 14; TEMP 36.6; O2SAT 97
[2021-09-21] MEDS: OLANZapine 10 MG VIAL 5 MG IM (21:53)
[2021-09-22] VITALS: RESP 14
[2021-09-22 04:00] VITALS: RESP 14
[2021-09-22 09:00] VITALS: BP 132/84; PULSE 92; RESP 17; TEMP 36.6; O2SAT 99
[2021-09-22] MEDS: Fondaparinux Sodium 7.5 MG/0.6 ML SYRINGE SUBCUT (10:21)
[2021-09-22] MEDS: OLANZapine 10 MG VIAL 5 MG IM (11:13)
[2021-09-22] MEDS: LORazepam 2 MG/ML VIAL IM (11:13)
--- NOTE | 2021-09-22 14:02 | P.PNPSI_ITS ---
Subjective Subjective Date of Service: 09/22/21 Reason For Visit: Psychosis Interim History: pt seen in her room, appearing psychomotorically retarded, staring, incr latency of response, decr eye blink. calling MD toney, not able to integrate information MD providing her about his identity. per staff, yulissao n 1:1. after getting ativan 2 mg IM yesteryda morning got up and ate lunch, dinner, took in lots of fluids. irritable, reactive, labile, paranoid. showered with the help of two staff. ate 2 dinners. up at 0200. yelling in milieu, you're trying to cut my head off! got IM zyprexa at [facility]. Mental Status Exam Mental Status Exam Narrative: Pt is awake and alert. She is in hospital attire, disorganized, unable to collaborate in her care, excessive eye contact. disorganized thoughts. mistrustful, delusional. affect constricted, less irritable. no SI/HI/AVH expressed. Patient Appearance: Disheveled Diagnostics Vital Signs (24Hr): Vital Signs - 24 hr 09/21/21 20:00 09/22/21 00:00 09/22/21 04:00 Temperature 97.8 F Pulse Rate 90 Respiratory Rate 14 14 14 Blood Pressure 117/69 Pulse Oximetry 97 BMI result Body Mass Index 22.1 Labs Results: 09/14/21 07:24 09/19/21 09:08 Imaging Radiology Impressions: ITS Impressions Head CT 09/13/21 12:37 IMPRESSION: No acute intracranial findings. Medications Medications Current Medications Acetaminophen (Acetaminophen 325 Mg Tablet) 650 mg PO Q6H PRN PRN Reason: Fever Or Pain Al Hydroxide/Mg Hydroxide (Magnesium Hydrox/Alum Hydrox 30 Ml Oral.Susp) 30 ml PO Q6H PRN PRN Reason: Heartburn/Nausea Calcium Carbonate/Cholecalciferol (Calcium + Vitamin D 250 Mg Tablet) 250 mg PO DAILY [facility] Last Admin: 09/22/21 10:39 Dose: Not Given Documented by: Docusate Sodium (Docusate Sodium 100 Mg Capsule) 100 mg PO BID [facility] Last Admin: 09/22/21 10:42 Dose: Not Given Documented by: Fluticasone Propionate (Fluticasone Propionate Nasal 16 Gm [place]) 1 spray NOSTRIL-B DAILY PRN PRN Reason: Allergy Symptoms Fondaparinux (Fondaparinux Sodium 7.5 Mg/0.6 Ml Syringe) 7.5 mg SUBCUT Q24H [facility] Last Admin: 09/22/21 10:21 Dose: 7.5 mg Documented by: Gabapentin (Gabapentin 100 Mg Capsule) 200 mg PO TID [facility] Last Admin: 09/22/21 10:40 Dose: Not Given Documented by: Hydrocortisone (Hydrocortisone 1 % Cream 28.35 Gm Tube) 1 appl TOPICAL BID PRN PRN Reason: rash Lactulose (Lactulose 20 Gm/30 Ml Solution) 10 gm PO BID PRN PRN Reason: constipation Loratadine (Loratadine 10 Mg Tablet) 10 mg PO DAILY [facility] Last Admin: 09/22/21 10:39 Dose: Not Given Documented by: Lorazepam (Lorazepam 1 Mg Tablet) 1 mg PO TID [facility] Last Admin: 09/22/21 10:41 Dose: Not Given Documented by: Lorazepam (Lorazepam 2 Mg/Ml Vial) 2 mg IM BID PRN PRN Reason: refusal of PO ativan Last Admin: 09/22/21 11:13 Dose: 2 mg Documented by: Magnesium Hydroxide (Milk Of Magnesia 30 Ml Oral.Susp) 30 ml PO DAILY PRN PRN Reason: Constipation Melatonin (Melatonin 3 Mg Tablet) 9 mg PO BEDTIME [facility] Last Admin: 09/21/21 21:34 Dose: Not Given Documented by: Multivitamins/Vitamin C (Multivitamin Tablet) 1 tab PO DAILY [facility] Last Admin: 09/22/21 10:39 Dose: Not Given Documented by: Omeprazole (Omeprazole 20 Mg Capsule.Dr) 20 mg PO BID@0630,1630 [facility] Last Admin: 09/22/21 10:39 Dose: Not Given Documented by: Oxycodone HCl (Oxycodone Hcl Er 10 Mg Tab.Er.12h) 10 mg PO Q12H [facility] Last Admin: 09/13/21 11:35 Dose: Not Given Documented by: Quetiapine Fumarate (Quetiapine Fumarate 100 Mg Tablet) 100 mg PO BEDTIME PRN PRN Reason: Insomnia Quetiapine Fumarate (Quetiapine Fumarate 50 Mg Tablet) 50 mg PO Q4H PRN PRN Reason: anxiety Quetiapine Fumarate (Quetiapine Fumarate 200 Mg Tablet) 200 mg PO TID [facility] Last Admin: 09/22/21 10:41 Dose: Not Given Documented by: Trazodone HCl (Trazodone Hcl 50 Mg Tablet) 50 mg PO BEDTIME PRN PRN Reason: Insomnia Allergies Allergies Allergy/AdvReac Type Severity Reaction Status Date / Time bee pollen Allergy Severe Anaphylaxis Verified 08/25/21 12:46 levofloxacin [From Levaquin] Allergy Severe Itching Verified 08/25/21 12:46 enoxaparin [From Lovenox] Allergy Intermediate Rash Verified 09/12/21 13:58 Penicillins Allergy Unknown Unknown Verified 08/25/21 12:46 Assessment & Plan Assessment & Plan (1) Hypernatremia: Status: Acute Code(s): E87.0 - Hyperosmolality and hypernatremia (2) Hypercalcemia: Status: Acute Code(s): E83.52 - Hypercalcemia (3) Bipolar 1 disorder: Status: Acute Code(s): F31.9 - Bipolar disorder, unspecified Plan ativan 1 mg TID for recent catatonia.? continue the medication to reduce anxiety/paranoia/mixed lucrecia for now. give usual home meds except for the following: hold oxycontin for now. fondaparinux 7.5 mg SQ daily for clot prophylaxis. hospitalist to review medical circumstance daily.? hospitalist input and involvement appreciated. committed and medications ordered by court 09/20. haldol and ativan IM back-up for med refusal. I spent ___35___ minutes with the patient and/or on the patient floor today, greater than?50% of which was spent counseling/coordinating care. Reason for contiued inpatient stay Substantial Risk for: inability to function and rapid decompensation
[2021-09-22 20:00] VITALS: BP 130/78; PULSE 90; RESP 16; TEMP 36.7; O2SAT 98
[2021-09-23] MEDS: LORazepam 2 MG/ML VIAL IM ×2 (00:59→10:39)
[2021-09-23] MEDS: OLANZapine 10 MG VIAL 5 MG IM (00:59)
[2021-09-23] MEDS: Haloperidol Lactate 5 MG/ML VIAL IM ×3 (01:01→20:31)
--- NOTE | 2021-09-23 02:39 | PC.NURSE ---
Pt refused PO meds 3 times. Stated she was not taking as they had rat poison in them. Has a Salomon order. Security called and pt was given IM Haldol 5mg/Ativan 2mg and a 2nd IM of Zyprexa 5mg.
--- NOTE | 2021-09-23 08:14 | PM.EVENT ---
Event Note Date of Service: 09/23/21 Event Note: Patient followed daily for med complains with anticoagulants. Of recent has been and acccepting IM Fondaparinux. Given IM antipsychotics over the last 48 hours ... Await response. Will follow, when taking orals on a regular basis will switch to Eliquis.
[2021-09-23 09:50] VITALS: BP 119/70; PULSE 75; RESP 17; TEMP 36.8; O2SAT 98
[2021-09-23] MEDS: Fondaparinux Sodium 7.5 MG/0.6 ML SYRINGE SUBCUT (10:24)
--- NOTE | 2021-09-23 11:32 | PC.NURSE ---
Patient refused PO Ativan and Seroquel. Per Salomon order patient received IM Haldol and Ativan.
[2021-09-23 13:42] VITALS: BP 113/62; PULSE 75; RESP 14; TEMP 36.5; O2SAT 98
--- NOTE | 2021-09-23 14:10 | P.PNPSI_ITS ---
Subjective Subjective Date of Service: 09/23/21 Reason For Visit: Psychosis Interim History: pt seen in her room, 1:1 staff at bedside. pt was asleep and remained so during the interview. per report from 1:1 she had gone to sleep about 15 minutes prior but had been awake until then, spontaneously speaking in an non-cogent fashion. 1:1 staff reported pt had refused morning medications and had instead recceived IM medication. per RN report, pt has been irritable, disorganized, and not compliant with medication over the past 24H. she has maintained poor PO compliance. Mental Status Exam Mental Status Exam Narrative: pt not rousable to loud voice, sleeping in her bed. Diagnostics Vital Signs (24Hr): Vital Signs - 24 hr 09/22/21 20:00 09/23/21 09:50 09/23/21 13:42 Temperature 98.0 F 98.3 F 97.7 F Pulse Rate 90 75 75 Respiratory Rate 16 17 14 Blood Pressure 130/78 119/70 113/62 Pulse Oximetry 98 98 98 BMI result Body Mass Index 22.1 Labs Results: 09/14/21 07:24 09/19/21 09:08 Imaging Radiology Impressions: ITS Impressions Head CT 09/13/21 12:37 IMPRESSION: No acute intracranial findings. Medications Medications Current Medications Acetaminophen (Acetaminophen 325 Mg Tablet) 650 mg PO Q6H PRN PRN Reason: Fever Or Pain Al Hydroxide/Mg Hydroxide (Magnesium Hydrox/Alum Hydrox 30 Ml Oral.Susp) 30 ml PO Q6H PRN PRN Reason: Heartburn/Nausea Calcium Carbonate/Cholecalciferol (Calcium + Vitamin D 250 Mg Tablet) 250 mg PO DAILY [facility] Last Admin: 09/23/21 11:04 Dose: Not Given Documented by: Docusate Sodium (Docusate Sodium 100 Mg Capsule) 100 mg PO BID [facility] Last Admin: 09/23/21 11:04 Dose: Not Given Documented by: Fluticasone Propionate (Fluticasone Propionate Nasal 16 Gm [place]) 1 spray NOSTRIL-B DAILY PRN PRN Reason: Allergy Symptoms Fondaparinux (Fondaparinux Sodium 7.5 Mg/0.6 Ml Syringe) 7.5 mg SUBCUT Q24H [facility] Last Admin: 09/23/21 10:24 Dose: 7.5 mg Documented by: Gabapentin (Gabapentin 100 Mg Capsule) 200 mg PO TID [facility] Last Admin: 09/23/21 11:04 Dose: Not Given Documented by: Haloperidol Lactate (Haloperidol Lactate 5 Mg/Ml Vial) 5 mg IM BID PRN PRN Reason: refusal of PO Seroquel Last Admin: 09/23/21 10:28 Dose: 5 mg Documented by: Hydrocortisone (Hydrocortisone 1 % Cream 28.35 Gm Tube) 1 appl TOPICAL BID PRN PRN Reason: rash Lactulose (Lactulose 20 Gm/30 Ml Solution) 10 gm PO BID PRN PRN Reason: constipation Loratadine (Loratadine 10 Mg Tablet) 10 mg PO DAILY [facility] Last Admin: 09/23/21 11:04 Dose: Not Given Documented by: Lorazepam (Lorazepam 1 Mg Tablet) 1 mg PO TID [facility] Last Admin: 09/23/21 11:04 Dose: Not Given Documented by: Lorazepam (Lorazepam 2 Mg/Ml Vial) 2 mg IM BID PRN PRN Reason: refusal of PO ativan Last Admin: 09/23/21 10:39 Dose: 2 mg Documented by: Magnesium Hydroxide (Milk Of Magnesia 30 Ml Oral.Susp) 30 ml PO DAILY PRN PRN Reason: Constipation Melatonin (Melatonin 3 Mg Tablet) 9 mg PO BEDTIME [facility] Last Admin: 09/22/21 21:46 Dose: Not Given Documented by: Multivitamins/Vitamin C (Multivitamin Tablet) 1 tab PO DAILY [facility] Last Admin: 09/23/21 11:05 Dose: Not Given Documented by: Olanzapine (Olanzapine 10 Mg Vial) 5 mg IM BID PRN PRN Reason: agitation, anxiety Last Admin: 09/23/21 00:59 Dose: 5 mg Documented by: Omeprazole (Omeprazole 20 Mg Capsule.Dr) 20 mg PO BID@0630,1630 [facility] Last Admin: 09/23/21 11:03 Dose: Not Given Documented by: Oxycodone HCl (Oxycodone Hcl Er 10 Mg Tab.Er.12h) 10 mg PO Q12H [facility] Last Admin: 09/13/21 11:35 Dose: Not Given Documented by: Quetiapine Fumarate (Quetiapine Fumarate 100 Mg Tablet) 100 mg PO BEDTIME PRN PRN Reason: Insomnia Quetiapine Fumarate (Quetiapine Fumarate 50 Mg Tablet) 50 mg PO Q4H PRN PRN Reason: anxiety Quetiapine Fumarate (Quetiapine Fumarate 200 Mg Tablet) 200 mg PO TID [facility] Last Admin: 09/23/21 11:05 Dose: Not Given Documented by: Trazodone HCl (Trazodone Hcl 50 Mg Tablet) 50 mg PO BEDTIME PRN PRN Reason: Insomnia Allergies Allergies Allergy/AdvReac Type Severity Reaction Status Date / Time bee pollen Allergy Severe Anaphylaxis Verified 08/25/21 12:46 levofloxacin [From Levaquin] Allergy Severe Itching Verified 08/25/21 12:46 enoxaparin [From Lovenox] Allergy Intermediate Rash Verified 09/12/21 13:58 Penicillins Allergy Unknown Unknown Verified 08/25/21 12:46 Assessment & Plan Assessment & Plan (1) Hypernatremia: Status: Acute Code(s): E87.0 - Hyperosmolality and hypernatremia (2) Hypercalcemia: Status: Acute Code(s): E83.52 - Hypercalcemia (3) Bipolar 1 disorder: Status: Acute Code(s): F31.9 - Bipolar disorder, unspecified Plan ativan 1 mg TID for recent catatonia.? continue the medication to reduce anxiety/paranoia/mixed lucrecia for now. give usual home meds except for the following: hold oxycontin for now. fondaparinux 7.5 mg SQ daily for clot prophylaxis. hospitalist to review medical circumstance daily.? hospitalist input and involvement appreciated. committed and medications ordered by court 09/20. haldol and ativan IM back-up for med refusal. I spent ___25___ minutes with the patient and/or on the patient floor today, greater than?50% of which was spent counseling/coordinating care. Reason for contiued inpatient stay Substantial Risk for: harm to self, inability to function and rapid decompensation
[2021-09-23 20:00] VITALS: PULSE 91; RESP 14; TEMP 36.6; O2SAT 97
[2021-09-24] VITALS: RESP 14
[2021-09-24] MEDS: LORazepam 2 MG/ML VIAL IM ×3 (02:08→22:57)
[2021-09-24 04:00] VITALS: RESP 14
[2021-09-24 08:00] VITALS: BP 119/78; PULSE 81; RESP 16; TEMP 36.5
[2021-09-24] MEDS: Fondaparinux Sodium 7.5 MG/0.6 ML SYRINGE SUBCUT (11:00)
[2021-09-24] MEDS: Haloperidol Lactate 5 MG/ML VIAL IM ×2 (12:00→22:56)
--- NOTE | 2021-09-24 16:02 | HO.PSYCHPN ---
Subjective Subjective Date of Service: 09/24/21 Reason For Visit: Psychosis Subjective Notes: Section 8 Medical Problems Affecting Mental Status: No Interim History: chart reviewed. Discussed with Nursing. On one-to-one for falls risk. Refusing oral medications and therefore receiving IM medications as per Salomon order. Limited fluid intake. Is being followed by hospitalists regarding history of DVT and anticoagulation. In room. Very limited engagement with content writer. She is actively hallucinating. Stating that there was somebody in a wheelchair targeting her and telling her to stay still and nighttime and therefore she is not sleeping. Reports she is not taking medications Orally because they are not ones that help her and that Seroquel has been helpful in the past. Medication Compliance: No (Aime IM) Side effects from medications: No Attending Groups: No Review of Systems As per hospitalist note on 09/23/2021: Patient followed daily for med complains with anticoagulants.? Of recent has been and acccepting IM Fondaparinux.? Given IM antipsychotics over the last 48 hours ...? Await response.? Will follow, when taking orals on a regular basis will switch to Eliquis. Medical Review of Systems: unchanged Review of Systems Review of Systems Unremarkable Mental Status Exam Mental Status Exam Narrative: in bed. Poor self-care. Alert and oriented. Internally preoccupied and actively hallucinating. No evidence of SI. Insight and judgment poor Diagnostics Vital Signs (24Hr): Vital Signs - 24 hr 09/23/21 20:00 09/24/21 00:00 09/24/21 04:00 Temperature 97.8 F Pulse Rate 91 Respiratory Rate 14 14 14 Blood Pressure Pulse Oximetry 97 09/24/21 08:00 Temperature 97.7 F Pulse Rate 81 Respiratory Rate 16 Blood Pressure 119/78 Pulse Oximetry BMI result Body Mass Index 22.1 Labs Results: 09/14/21 07:24 09/19/21 09:08 Imaging Radiology Impressions: ITS Impressions Head CT 09/13/21 12:37 IMPRESSION: No acute intracranial findings. Medications Medications Current Medications Acetaminophen (Acetaminophen 325 Mg Tablet) 650 mg PO Q6H PRN PRN Reason: Fever Or Pain Al Hydroxide/Mg Hydroxide (Magnesium Hydrox/Alum Hydrox 30 Ml Oral.Susp) 30 ml PO Q6H PRN PRN Reason: Heartburn/Nausea Calcium Carbonate/Cholecalciferol (Calcium + Vitamin D 250 Mg Tablet) 250 mg PO DAILY [facility] Last Admin: 09/24/21 11:10 Dose: Not Given Documented by: Docusate Sodium (Docusate Sodium 100 Mg Capsule) 100 mg PO BID [facility] Last Admin: 09/24/21 11:10 Dose: Not Given Documented by: Fluticasone Propionate (Fluticasone Propionate Nasal 16 Gm [place]) 1 spray NOSTRIL-B DAILY PRN PRN Reason: Allergy Symptoms Fondaparinux (Fondaparinux Sodium 7.5 Mg/0.6 Ml Syringe) 7.5 mg SUBCUT Q24H [facility] Last Admin: 09/24/21 11:00 Dose: 7.5 mg Documented by: Gabapentin (Gabapentin 100 Mg Capsule) 200 mg PO TID [facility] Last Admin: 09/24/21 11:10 Dose: Not Given Documented by: Haloperidol Lactate (Haloperidol Lactate 5 Mg/Ml Vial) 5 mg IM BID PRN PRN Reason: refusal of PO Seroquel Last Admin: 09/24/21 12:00 Dose: 5 mg Documented by: Hydrocortisone (Hydrocortisone 1 % Cream 28.35 Gm Tube) 1 appl TOPICAL BID PRN PRN Reason: rash Lactulose (Lactulose 20 Gm/30 Ml Solution) 10 gm PO BID PRN PRN Reason: constipation Loratadine (Loratadine 10 Mg Tablet) 10 mg PO DAILY [facility] Last Admin: 09/24/21 11:10 Dose: Not Given Documented by: Lorazepam (Lorazepam 1 Mg Tablet) 1 mg PO TID [facility] Last Admin: 09/24/21 11:11 Dose: Not Given Documented by: Lorazepam (Lorazepam 2 Mg/Ml Vial) 2 mg IM BID PRN PRN Reason: refusal of PO ativan Last Admin: 09/24/21 12:00 Dose: 2 mg Documented by: Magnesium Hydroxide (Milk Of Magnesia 30 Ml Oral.Susp) 30 ml PO DAILY PRN PRN Reason: Constipation Melatonin (Melatonin 3 Mg Tablet) 9 mg PO BEDTIME [facility] Last Admin: 09/23/21 20:21 Dose: Not Given Documented by: Multivitamins/Vitamin C (Multivitamin Tablet) 1 tab PO DAILY [facility] Last Admin: 09/24/21 11:11 Dose: Not Given Documented by: Omeprazole (Omeprazole 20 Mg Capsule.Dr) 20 mg PO BID@0630,1630 [facility] Last Admin: 09/24/21 11:10 Dose: Not Given Documented by: Oxycodone HCl (Oxycodone Hcl Er 10 Mg Tab.Er.12h) 10 mg PO Q12H [facility] Last Admin: 09/13/21 11:35 Dose: Not Given Documented by: Quetiapine Fumarate (Quetiapine Fumarate 100 Mg Tablet) 100 mg PO BEDTIME PRN PRN Reason: Insomnia Quetiapine Fumarate (Quetiapine Fumarate 50 Mg Tablet) 50 mg PO Q4H PRN PRN Reason: anxiety Quetiapine Fumarate (Quetiapine Fumarate 200 Mg Tablet) 200 mg PO TID [facility] Last Admin: 09/24/21 11:11 Dose: Not Given Documented by: Trazodone HCl (Trazodone Hcl 50 Mg Tablet) 50 mg PO BEDTIME PRN PRN Reason: Insomnia Allergies Allergies Allergy/AdvReac Type Severity Reaction Status Date / Time bee pollen Allergy Severe Anaphylaxis Verified 08/25/21 12:46 levofloxacin [From Levaquin] Allergy Severe Itching Verified 08/25/21 12:46 enoxaparin [From Lovenox] Allergy Intermediate Rash Verified 09/12/21 13:58 Penicillins Allergy Unknown Unknown Verified 08/25/21 12:46 Assessment & Plan Assessment & Plan (1) Hypernatremia: Status: Acute Code(s): E87.0 - Hyperosmolality and hypernatremia (2) Hypercalcemia: Status: Acute Code(s): E83.52 - Hypercalcemia (3) Bipolar 1 disorder: Status: Acute Code(s): F31.9 - Bipolar disorder, unspecified Plan ativan 1 mg TID for recent catatonia.? continue the medication to reduce anxiety/paranoia/mixed lucrecia for now. give usual home meds except for the following: hold oxycontin for now. fondaparinux 7.5 mg SQ daily for clot prophylaxis. hospitalist to review medical circumstance daily.? hospitalist input and involvement appreciated. committed and medications ordered by court 09/20. haldol and ativan IM back-up for med refusal. 09/24/2021: No changes to teams primary treatment plan. patient does report considering Seroquel. Will review court Aime paperwork I spent minutes with the patient and/or on the patient floor today, greater than?50% of which was spent counseling/coordinating care. Patient educated on: medication risk/benefits Reason for contiued inpatient stay Substantial Risk for: inability to function
[2021-09-24 20:00] VITALS: BP 131/98; PULSE 88; RESP 14; TEMP 36.4; O2SAT 94
[2021-09-25] VITALS: RESP 14
[2021-09-25 04:00] VITALS: RESP 14
--- NOTE | 2021-09-25 08:13 | PM.EVENT ---
Event Note Date of Service: 09/25/21 Event Note: Continues to refuse p.o. meds however is excepting Fondaparinux.
[2021-09-25] MEDS: Fondaparinux Sodium 7.5 MG/0.6 ML SYRINGE SUBCUT (11:49)
[2021-09-25] MEDS: LORazepam 2 MG/ML VIAL IM ×2 (12:23→22:29)
[2021-09-25] MEDS: Haloperidol Lactate 5 MG/ML VIAL IM ×2 (12:23→22:28)
--- NOTE | 2021-09-25 13:47 | P.PNPSI_ITS ---
Subjective Subjective Date of Service: 09/25/21 Reason For Visit: Psychosis Subjective Notes: Section 8 Interim History: Chart reviewed. Discussed with Nursing. On one-to-one for falls risk. Refusing oral medications and therefore receiving IM medications as per Salomon order. Better intake today- apple sauce and 2 x chloé priti cups. In room. Appears paranoid and hallucinating and tortured- reports wanting seroquel by mouth but also not taking same despite significant encouragement due to direction and paranoia ref staff and hospital. Medication Compliance: No (lauren) Side effects from medications: No Attending Groups: No Review of Systems Acute medical concerns: No encouraging po intake Review of Systems Review of Systems Unremarkable Mental Status Exam Mental Status Exam Narrative: in bed. Poor self-care. Alert and oriented. Internally preoccupied and actively hallucinating. No evidence of SI. Insight and judgment poor Diagnostics Vital Signs (24Hr): Vital Signs - 24 hr 09/24/21 20:00 09/25/21 00:00 09/25/21 04:00 Temperature 97.6 F Pulse Rate 88 Respiratory Rate 14 14 14 Blood Pressure 131/98 H Pulse Oximetry 94 BMI result Body Mass Index 22.1 Labs Results: 09/14/21 07:24 09/19/21 09:08 Imaging Radiology Impressions: ITS Impressions Head CT 09/13/21 12:37 IMPRESSION: No acute intracranial findings. Medications Medications Current Medications Acetaminophen (Acetaminophen 325 Mg Tablet) 650 mg PO Q6H PRN PRN Reason: Fever Or Pain Al Hydroxide/Mg Hydroxide (Magnesium Hydrox/Alum Hydrox 30 Ml Oral.Susp) 30 ml PO Q6H PRN PRN Reason: Heartburn/Nausea Calcium Carbonate/Cholecalciferol (Calcium + Vitamin D 250 Mg Tablet) 250 mg PO DAILY [facility] Last Admin: 09/25/21 12:45 Dose: Not Given Documented by: Docusate Sodium (Docusate Sodium 100 Mg Capsule) 100 mg PO BID [facility] Last Admin: 09/25/21 12:45 Dose: Not Given Documented by: Fluticasone Propionate (Fluticasone Propionate Nasal 16 G[address] [place]) 1 spray NOSTRIL-B DAILY PRN PRN Reason: Allergy Symptoms Fondaparinux (Fondaparinux Sodium 7.5 Mg/0.6 Ml Syringe) 7.5 mg SUBCUT Q24H [facility] Last Admin: 09/25/21 11:49 Dose: 7.5 mg Documented by: Gabapentin (Gabapentin 100 Mg Capsule) 200 mg PO TID [facility] Last Admin: 09/25/21 12:45 Dose: Not Given Documented by: Haloperidol Lactate (Haloperidol Lactate 5 Mg/Ml Vial) 5 mg IM BID PRN PRN Reason: refusal of PO Seroquel Last Admin: 09/25/21 12:23 Dose: 5 mg Documented by: Hydrocortisone (Hydrocortisone 1 % Cream 28.35 Gm Tube) 1 appl TOPICAL BID PRN PRN Reason: rash Lactulose (Lactulose 20 Gm/30 Ml Solution) 10 gm PO BID PRN PRN Reason: constipation Loratadine (Loratadine 10 Mg Tablet) 10 mg PO DAILY [facility] Last Admin: 09/25/21 12:45 Dose: Not Given Documented by: Lorazepam (Lorazepam 1 Mg Tablet) 1 mg PO TID [facility] Last Admin: 09/25/21 12:45 Dose: Not Given Documented by: Lorazepam (Lorazepam 2 Mg/Ml Vial) 2 mg IM BID PRN PRN Reason: refusal of PO ativan Last Admin: 09/25/21 12:23 Dose: 2 mg Documented by: Magnesium Hydroxide (Milk Of Magnesia 30 Ml Oral.Susp) 30 ml PO DAILY PRN PRN Reason: Constipation Melatonin (Melatonin 3 Mg Tablet) 9 mg PO BEDTIME [facility] Last Admin: 09/24/21 21:51 Dose: Not Given Documented by: Multivitamins/Vitamin C (Multivitamin Tablet) 1 tab PO DAILY [facility] Last Admin: 09/25/21 12:45 Dose: Not Given Documented by: Omeprazole (Omeprazole 20 Mg Capsule.Dr) 20 mg PO BID@0630,1630 [facility] Last Admin: 09/25/21 12:45 Dose: Not Given Documented by: Oxycodone HCl (Oxycodone Hcl Er 10 Mg Tab.Er.12h) 10 mg PO Q12H [facility] Last Admin: 09/13/21 11:35 Dose: Not Given Documented by: Quetiapine Fumarate (Quetiapine Fumarate 100 Mg Tablet) 100 mg PO BEDTIME PRN PRN Reason: Insomnia Quetiapine Fumarate (Quetiapine Fumarate 50 Mg Tablet) 50 mg PO Q4H PRN PRN Reason: anxiety Quetiapine Fumarate (Quetiapine Fumarate 200 Mg Tablet) 200 mg PO TID [facility] Last Admin: 09/25/21 12:46 Dose: Not Given Documented by: Trazodone HCl (Trazodone Hcl 50 Mg Tablet) 50 mg PO BEDTIME PRN PRN Reason: Insomnia Allergies Allergies Allergy/AdvReac Type Severity Reaction Status Date / Time bee pollen Allergy Severe Anaphylaxis Verified 08/25/21 12:46 levofloxacin [From Levaquin] Allergy Severe Itching Verified 08/25/21 12:46 enoxaparin [From Lovenox] Allergy Intermediate Rash Verified 09/12/21 13:58 Penicillins Allergy Unknown Unknown Verified 08/25/21 12:46 Assessment & Plan Assessment & Plan (1) Hypernatremia: Status: Acute Code(s): E87.0 - Hyperosmolality and hypernatremia (2) Hypercalcemia: Status: Acute Code(s): E83.52 - Hypercalcemia (3) Bipolar 1 disorder: Status: Acute Code(s): F31.9 - Bipolar disorder, unspecified Plan ativan 1 mg TID for recent catatonia.? continue the medication to reduce anxiety/paranoia/mixed lucrecia for now. give usual home meds except for the following: hold oxycontin for now. fondaparinux 7.5 mg SQ daily for clot prophylaxis. hospitalist to review medical circumstance daily.? hospitalist input and involvement appreciated. committed and medications ordered by court 09/20. haldol and ativan IM back-up for med refusal. 09/25/2021: No changes to teams primary treatment plan. patient continue to be ambivalent ref seroquel v IM medications as per Lauren Ongoing encouragement. I spent minutes with the patient and/or on the patient floor today, greater than?50% of which was spent counseling/coordinating care. Reason for contiued inpatient stay Substantial Risk for: inability to function
[2021-09-25 20:30] VITALS: RESP 14
[2021-09-26 00:20] VITALS: RESP 14
[2021-09-26 04:05] VITALS: RESP 16
[2021-09-26 09:15] VITALS: BP 110/73; PULSE 88; RESP 20; TEMP 36.1; O2SAT 97
[2021-09-26] MEDS: LORazepam 1 MG TABLET PO (10:05)
[2021-09-26] MEDS: QUEtiapine Fumarate 200 MG TABLET PO (10:05)
[2021-09-26] MEDS: Fondaparinux Sodium 7.5 MG/0.6 ML SYRINGE SUBCUT (11:59)
--- NOTE | 2021-09-26 12:36 | HO.PSYCHPN ---
Subjective Subjective Date of Service: 09/26/21 Reason For Visit: Psychosis Interim History: pt seen in her room, lying in her bed asleep. 1:1 staff at bedside reports pt had PO medications this morning and ambulated to the bathroom with his help and urinated. states she refused her breakfast. MD declined to awaken pt, having the opinion that rest would be more therapeutic than the likely interaction that would be had. per staff, flat, withdrawn, isolative. paranoid, some slurred and non-sensical speech. had chloé priti and apple sauce in the past day. appears to be RIS. slept through the night. Mental Status Exam Mental Status Exam Narrative: pt not rousable to conversational voice, sleeping in her bed. Diagnostics Vital Signs (24Hr): Vital Signs - 24 hr 09/25/21 20:30 09/26/21 00:20 09/26/21 04:05 Temperature Pulse Rate Respiratory Rate 14 14 16 Blood Pressure Pulse Oximetry 09/26/21 09:15 Temperature 97.0 F Pulse Rate 88 Respiratory Rate 20 Blood Pressure 110/73 Pulse Oximetry 97 BMI result Body Mass Index 22.1 Labs Results: 09/14/21 07:24 09/19/21 09:08 Imaging Radiology Impressions: ITS Impressions Head CT 09/13/21 12:37 IMPRESSION: No acute intracranial findings. Medications Medications Current Medications Acetaminophen (Acetaminophen 325 Mg Tablet) 650 mg PO Q6H PRN PRN Reason: Fever Or Pain Al Hydroxide/Mg Hydroxide (Magnesium Hydrox/Alum Hydrox 30 Ml Oral.Susp) 30 ml PO Q6H PRN PRN Reason: Heartburn/Nausea Calcium Carbonate/Cholecalciferol (Calcium + Vitamin D 250 Mg Tablet) 250 mg PO DAILY [facility] Last Admin: 09/26/21 10:10 Dose: Not Given Documented by: Docusate Sodium (Docusate Sodium 100 Mg Capsule) 100 mg PO BID [facility] Last Admin: 09/26/21 10:10 Dose: Not Given Documented by: Fluticasone Propionate (Fluticasone Propionate Nasal 16 Gm [place]) 1 spray NOSTRIL-B DAILY PRN PRN Reason: Allergy Symptoms Fondaparinux (Fondaparinux Sodium 7.5 Mg/0.6 Ml Syringe) 7.5 mg SUBCUT Q24H [facility] Last Admin: 09/26/21 11:59 Dose: 7.5 mg Documented by: Gabapentin (Gabapentin 100 Mg Capsule) 200 mg PO TID [facility] Last Admin: 09/26/21 10:11 Dose: Not Given Documented by: Haloperidol Lactate (Haloperidol Lactate 5 Mg/Ml Vial) 5 mg IM BID PRN PRN Reason: refusal of PO Seroquel Last Admin: 09/25/21 22:28 Dose: 5 mg Documented by: Hydrocortisone (Hydrocortisone 1 % Cream 28.35 Gm Tube) 1 appl TOPICAL BID PRN PRN Reason: rash Lactulose (Lactulose 20 Gm/30 Ml Solution) 10 gm PO BID PRN PRN Reason: constipation Loratadine (Loratadine 10 Mg Tablet) 10 mg PO DAILY [facility] Last Admin: 09/26/21 10:11 Dose: Not Given Documented by: Lorazepam (Lorazepam 1 Mg Tablet) 1 mg PO TID [facility] Last Admin: 09/26/21 10:05 Dose: 1 mg Documented by: Lorazepam (Lorazepam 2 Mg/Ml Vial) 2 mg IM BID PRN PRN Reason: refusal of PO ativan Last Admin: 09/25/21 22:29 Dose: 2 mg Documented by: Magnesium Hydroxide (Milk Of Magnesia 30 Ml Oral.Susp) 30 ml PO DAILY PRN PRN Reason: Constipation Melatonin (Melatonin 3 Mg Tablet) 9 mg PO BEDTIME [facility] Last Admin: 09/25/21 22:15 Dose: Not Given Documented by: Multivitamins/Vitamin C (Multivitamin Tablet) 1 tab PO DAILY [facility] Last Admin: 09/26/21 10:24 Dose: Not Given Documented by: Omeprazole (Omeprazole 20 Mg Capsule.Dr) 20 mg PO BID@0630,1630 [facility] Last Admin: 09/26/21 10:10 Dose: Not Given Documented by: Oxycodone HCl (Oxycodone Hcl Er 10 Mg Tab.Er.12h) 10 mg PO Q12H [facility] Last Admin: 09/13/21 11:35 Dose: Not Given Documented by: Quetiapine Fumarate (Quetiapine Fumarate 100 Mg Tablet) 100 mg PO BEDTIME PRN PRN Reason: Insomnia Quetiapine Fumarate (Quetiapine Fumarate 50 Mg Tablet) 50 mg PO Q4H PRN PRN Reason: anxiety Quetiapine Fumarate (Quetiapine Fumarate 200 Mg Tablet) 200 mg PO TID [facility] Last Admin: 09/26/21 10:05 Dose: 200 mg Documented by: Trazodone HCl (Trazodone Hcl 50 Mg Tablet) 50 mg PO BEDTIME PRN PRN Reason: Insomnia Allergies Allergies Allergy/AdvReac Type Severity Reaction Status Date / Time bee pollen Allergy Severe Anaphylaxis Verified 08/25/21 12:46 levofloxacin [From Levaquin] Allergy Severe Itching Verified 08/25/21 12:46 enoxaparin [From Lovenox] Allergy Intermediate Rash Verified 09/12/21 13:58 Penicillins Allergy Unknown Unknown Verified 08/25/21 12:46 Assessment & Plan Assessment & Plan (1) Hypernatremia: Status: Acute Code(s): E87.0 - Hyperosmolality and hypernatremia (2) Hypercalcemia: Status: Acute Code(s): E83.52 - Hypercalcemia (3) Bipolar 1 disorder: Status: Acute Code(s): F31.9 - Bipolar disorder, unspecified Plan ativan 1 mg TID for recent catatonia.? continue the medication to reduce anxiety/paranoia/mixed lucrecia for now. give usual home meds except for the following: hold oxycontin for now. fondaparinux 7.5 mg SQ daily for clot prophylaxis. hospitalist to review medical circumstance regularly.? hospitalist input and involvement appreciated. committed and medications ordered by court 09/20. haldol and ativan IM back-up for med refusal. I spent ___25___ minutes with the patient and/or on the patient floor today, greater than?50% of which was spent counseling/coordinating care. Reason for contiued inpatient stay Substantial Risk for: harm to self and inability to function
--- NOTE | 2021-09-26 13:15 | PM.EVENT ---
Event Note Date of Service: 09/26/21 Event Note: Continues to accept Fondaparinux. Declining orals. Continue with same and call when accepting oral medications
--- NOTE | 2021-09-26 17:13 | PC.NURSE ---
Patient accepted AM lorazepam and seroquel, declined all other medications. Patient encouraged to drink, and to eat- accepted strawberry shortcake but declined all other food or drink. With encouragement, patient agreed to walk to dining area w/ staff. Patient appears sedated, afternoon dosage of seroquel held per Dr. Meredith. Reviewed PO food and fluid intake w/ MD.
[2021-09-26 20:42] VITALS: RESP 16
[2021-09-26] MEDS: Haloperidol Lactate 5 MG/ML VIAL IM (23:18)
[2021-09-26] MEDS: LORazepam 2 MG/ML VIAL 1 MG IM (23:18)
[2021-09-27] VITALS (10 sets, daily range): BP systolic 114–142; BP diastolic 79–91; PULSE 78–117; RESP 14–18; TEMP 36.1–36.8; O2SAT 96–99
[2021-09-27] MEDS: Haloperidol Lactate 5 MG/ML VIAL IM ×2 (08:26→21:52)
[2021-09-27] MEDS: LORazepam 2 MG/ML VIAL 1 MG IM ×2 (08:28→21:51)
--- NOTE | 2021-09-27 10:34 | HO.PSYCHPN ---
Subjective Subjective Date of Service: 09/27/21 Reason For Visit: Psychosis Interim History: pt seen in her room, lying in bed resting, easily rousable to voice. identifies MD as dawna. says she feels terrible, MD asks her to say top 3 things bothering her. she says legs are falling off. MD notess DVT and need to take SC injection daily. pt then states she doesn't have any eyes left while making firm eye contact with MD, who reflects this observation to pt. she says, well, it feels like i don't have any eyes left. attempts to solicit third issue of complaint, and after a long pause pot replies, you killed all those people. MD informs pt that to the best of his knowledge he has not killed anyone. then encourages PO fluids and after the exchange of a few more pleasantries, the interview is ended. per staff, received IMs both last night and this morning after having refused PO medication. yesterday irritable, sad, tearful. disorganized, paranoid. had some water yesterday. walked on her own to dining area this morning. BP 120/80. Mental Status Exam Mental Status Exam Narrative: Pt is easily rousable and then awake and alert. She is in hospital attire, disorganized, unable to collaborate in her care, excessive eye contact. disorganized thoughts. mistrustful, delusional. affect constricted, less irritable. no SI/HI/AVH expressed. Patient Appearance: Disheveled Diagnostics Vital Signs (24Hr): Vital Signs - 24 hr 09/26/21 20:42 09/27/21 00:55 09/27/21 04:25 Temperature Respiratory Rate 16 16 14 Blood Pressure 09/27/21 07:47 Temperature 97.0 F Respiratory Rate Blood Pressure 120/80 BMI result Body Mass Index 22.1 Labs Results: 09/14/21 07:24 09/19/21 09:08 Imaging Radiology Impressions: ITS Impressions Head CT 09/13/21 12:37 IMPRESSION: No acute intracranial findings. Medications Medications Current Medications Acetaminophen (Acetaminophen 325 Mg Tablet) 650 mg PO Q6H PRN PRN Reason: Fever Or Pain Al Hydroxide/Mg Hydroxide (Magnesium Hydrox/Alum Hydrox 30 Ml Oral.Susp) 30 ml PO Q6H PRN PRN Reason: Heartburn/Nausea Calcium Carbonate/Cholecalciferol (Calcium + Vitamin D 250 Mg Tablet) 250 mg PO DAILY [facility] Last Admin: 09/27/21 08:33 Dose: Not Given Documented by: Docusate Sodium (Docusate Sodium 100 Mg Capsule) 100 mg PO BID [facility] Last Admin: 09/27/21 08:33 Dose: Not Given Documented by: Fluticasone Propionate (Fluticasone Propionate Nasal 16 Gm [place]) 1 spray NOSTRIL-B DAILY PRN PRN Reason: Allergy Symptoms Fondaparinux (Fondaparinux Sodium 7.5 Mg/0.6 Ml Syringe) 7.5 mg SUBCUT Q24H [facility] Last Admin: 09/26/21 11:59 Dose: 7.5 mg Documented by: Gabapentin (Gabapentin 100 Mg Capsule) 200 mg PO TID [facility] Last Admin: 09/26/21 22:50 Dose: Not Given Documented by: Haloperidol Lactate (Haloperidol Lactate 5 Mg/Ml Vial) 5 mg IM BID PRN PRN Reason: refusal of PO Seroquel Last Admin: 09/27/21 08:26 Dose: 5 mg Documented by: Hydrocortisone (Hydrocortisone 1 % Cream 28.35 Gm Tube) 1 appl TOPICAL BID PRN PRN Reason: rash Lactulose (Lactulose 20 Gm/30 Ml Solution) 10 gm PO BID PRN PRN Reason: constipation Loratadine (Loratadine 10 Mg Tablet) 10 mg PO DAILY [facility] Last Admin: 09/26/21 10:11 Dose: Not Given Documented by: Lorazepam (Lorazepam 2 Mg/Ml Vial) 1 mg IM BID PRN PRN Reason: refusal of PO seroquel Last Admin: 09/27/21 08:28 Dose: 1 mg Documented by: Lorazepam (Lorazepam 1 Mg Tablet) 1 mg PO TID [facility] Lorazepam (Lorazepam 2 Mg/Ml Vial) 1 mg IM BID PRN PRN Reason: Refusal Of PO Ativan Last Admin: 09/26/21 23:18 Dose: 1 mg Documented by: Magnesium Hydroxide (Milk Of Magnesia 30 Ml Oral.Susp) 30 ml PO DAILY PRN PRN Reason: Constipation Melatonin (Melatonin 3 Mg Tablet) 9 mg PO BEDTIME [facility] Last Admin: 09/26/21 22:50 Dose: Not Given Documented by: Multivitamins/Vitamin C (Multivitamin Tablet) 1 tab PO DAILY [facility] Last Admin: 09/26/21 10:24 Dose: Not Given Documented by: Omeprazole (Omeprazole 20 Mg Capsule.) 20 mg PO BID@0630,7120 [facility] Last Admin: 09/27/21 08:33 Dose: Not Given Documented by: Oxycodone HCl (Oxycodone Hcl Er 10 Mg Tab.Er.12h) 10 mg PO Q12H [facility] Last Admin: 09/13/21 11:35 Dose: Not Given Documented by: Quetiapine Fumarate (Quetiapine Fumarate 100 Mg Tablet) 100 mg PO BEDTIME PRN PRN Reason: Insomnia Quetiapine Fumarate (Quetiapine Fumarate 50 Mg Tablet) 50 mg PO Q4H PRN PRN Reason: anxiety Quetiapine Fumarate (Quetiapine Fumarate 200 Mg Tablet) 200 mg PO TID [facility] Last Admin: 09/26/21 22:51 Dose: Not Given Documented by: Trazodone HCl (Trazodone Hcl 50 Mg Tablet) 50 mg PO BEDTIME PRN PRN Reason: Insomnia Allergies Allergies Allergy/AdvReac Type Severity Reaction Status Date / Time bee pollen Allergy Severe Anaphylaxis Verified 08/25/21 12:46 levofloxacin [From Levaquin] Allergy Severe Itching Verified 08/25/21 12:46 enoxaparin [From Lovenox] Allergy Intermediate Rash Verified 09/12/21 13:58 Penicillins Allergy Unknown Unknown Verified 08/25/21 12:46 Assessment & Plan Assessment & Plan (1) Hypernatremia: Status: Acute Code(s): E87.0 - Hyperosmolality and hypernatremia (2) Hypercalcemia: Status: Acute Code(s): E83.52 - Hypercalcemia (3) Bipolar 1 disorder: Status: Acute Code(s): F31.9 - Bipolar disorder, unspecified Plan ativan 1 mg TID for recent catatonia.? continue the medication to reduce anxiety/paranoia/mixed lucrecia for now. give usual home meds except for the following: hold oxycontin for now. fondaparinux 7.5 mg SQ daily for clot prophylaxis. hospitalist to review medical circumstance regularly.? hospitalist input and involvement appreciated. committed and medications ordered by court 09/20. haldol and ativan IM back-up for med refusal. continues to require regular IMs as of 09/27 due to refusing PO. I spent ___25___ minutes with the patient and/or on the patient floor today, greater than?50% of which was spent counseling/coordinating care. Reason for contiued inpatient stay Substantial Risk for: harm to self, inability to function and rapid decompensation
[2021-09-27] MEDS: Fondaparinux Sodium 7.5 MG/0.6 ML SYRINGE SUBCUT (11:15)
[2021-09-27 11:58] LABS: Anion Gap 14 (12-20); Blood Urea Nitrogen 13 mg/dL (9-16); Calcium 9.3 mg/dL (8.4-10.2); Carbon Dioxide 24 mmol/L (22-29); Chloride 102 mmol/L (96-108); Creatinine Clr Calc Pharmacy 76.9; Estimated Glomerular Filt Rate > 60; Glucose Random 105 mg/dL (60-115); Potassium 4.1 mmol/L (3.3-5.1); Sodium 136 mmol/L (135-145)
--- NOTE | 2021-09-27 15:27 | PC.NURSE ---
Patient, per 1:1 staff, got up, tripped and fell to floor- 1:1 staff was able to lower patient to the floor. Per staff, patient did not strike head. Patient able to move all extremities. Dr Meredith called, notified of fall. Patient assisted to sitting position- no report of pain. Patient assisted to standing position- bearing weight. Confirmed ROM of all extremities. No injury noted.
--- NOTE | 2021-09-27 16:07 | PC.NURSE ---
PATIENT AWAKE, OUT ON UNIT, SITTING AT TABLE WITH 1:1. nO NEW PAIN REPORTED, PATIENT HISTORICALLY ANSWERS THAT SHE ACHES ALL OVER WHEN EVALUATED. PATIENT BEARING WEIGHT, MOVING ALL EXTREMITIES WITHOUT DIFFICULTY. CONTINUES TO BE IRRITABLE, ANSWERS ONLKY OCCASIONALLY AND ANSWERS CONTINUE TO BE NONSENSICAL AT TIMES.
--- NOTE | 2021-09-27 16:13 | PC.NURSE ---
Following patient fall I contacted Dr Meredith to inform at 3:20pm. He advised that it was appropriate to assist patient to standing since there was no apparent injury and Suellen, her 1:1 staff, noted no head strike and Suellen had caught her fall partially and lowered pt to the floor..
--- NOTE | 2021-09-27 16:38 | PC.NURSE ---
Patient sitting up in bed, no new concerns reported, moving all extremities, 1:1 at bedside. Unable to complete full neuro check as patient is declining to answer many questions.
--- NOTE | 2021-09-27 17:47 | PC.NURSE ---
Patient awake, alert. Ambulating w/ 1:1 at side. No bruising noted on upper extremities.
[2021-09-28 08:00] VITALS: BP 117/84; PULSE 99; RESP 16; TEMP 36.7; O2SAT 98
[2021-09-28 08:55] LABS: Anion Gap 14 (12-20); Blood Urea Nitrogen 13 mg/dL (9-16); Calcium 9.5 mg/dL (8.4-10.2); Carbon Dioxide 24 mmol/L (22-29); Chloride 101 mmol/L (96-108); Creatinine Clr Calc Pharmacy 80.4; Estimated Glomerular Filt Rate > 60; Glucose Random 99 mg/dL (60-115); Potassium 3.8 mmol/L (3.3-5.1); Sodium 135 mmol/L (135-145)
--- NOTE | 2021-09-28 09:53 | HO.PM.IMPN ---
Subjective Subjective Date of Service: 09/28/21 Interval History: Limited interview. Pt guarded, paranoid. States she is doing horrible but does not offer further details. Still barely eating/drinking Review of Systems Review of Systems: Yes Unobtainable due to mental status Physical Exam Vital Signs: Vital Signs: Last Vital Signs Temp 98.0 F 09/28/21 08:00 Pulse 99 09/28/21 08:00 Resp 16 09/28/21 08:00 BP 117/84 09/28/21 08:00 Pulse Ox 98 09/28/21 08:00 BMI result Body Mass Index 22.1 Gen: restricted affect Lungs: clear to auscultation bilaterally Heart: regular rate and rhythm, no murmurs Abd: soft, non-tender, non-distended Ext: no swelling in legs Skin: no rash Objective Data Active Medications Acetaminophen (Acetaminophen 325 Mg Tablet) 650 mg PO Q6H PRN PRN Reason: Fever Or Pain Al Hydroxide/Mg Hydroxide (Magnesium Hydrox/Alum Hydrox 30 Ml Oral.Susp) 30 ml PO Q6H PRN PRN Reason: Heartburn/Nausea Calcium Carbonate/Cholecalciferol (Calcium + Vitamin D 250 Mg Tablet) 250 mg PO DAILY [facility] Last Admin: 09/27/21 08:33 Dose: Not Given Documented by: KOBY Non-Admin Reason: Patient Refused Docusate Sodium (Docusate Sodium 100 Mg Capsule) 100 mg PO BID [facility] Last Admin: 09/27/21 22:05 Dose: Not Given Documented by: ELÍAS Non-Admin Reason: Patient Refused Fluticasone Propionate (Fluticasone Propionate Nasal 16 Gm [place]) 1 spray NOSTRIL-B DAILY PRN PRN Reason: Allergy Symptoms Fondaparinux (Fondaparinux Sodium 7.5 Mg/0.6 Ml Syringe) 7.5 mg SUBCUT Q24H [facility] Last Admin: 09/27/21 11:15 Dose: 7.5 mg Documented by: KOBY Gabapentin (Gabapentin 100 Mg Capsule) 200 mg PO TID [facility] Last Admin: 09/27/21 22:05 Dose: Not Given Documented by: ELÍAS Non-Admin Reason: Patient Refused Haloperidol Lactate (Haloperidol Lactate 5 Mg/Ml Vial) 5 mg IM BID PRN PRN Reason: refusal of PO Seroquel Last Admin: 09/27/21 21:52 Dose: 5 mg Documented by: ELÍAS Hydrocortisone (Hydrocortisone 1 % Cream 28.35 Gm Tube) 1 appl TOPICAL BID PRN PRN Reason: rash Lactulose (Lactulose 20 Gm/30 Ml Solution) 10 gm PO BID PRN PRN Reason: constipation Loratadine (Loratadine 10 Mg Tablet) 10 mg PO DAILY [facility] Last Admin: 09/27/21 11:12 Dose: Not Given Documented by: KOBY Non-Admin Reason: Patient Refused Lorazepam (Lorazepam 2 Mg/Ml Vial) 1 mg IM BID PRN PRN Reason: refusal of PO seroquel Last Admin: 09/27/21 21:51 Dose: 1 mg Documented by: ELÍAS Lorazepam (Lorazepam 1 Mg Tablet) 1 mg PO TID [facility] Last Admin: 09/27/21 22:05 Dose: Not Given Documented by: ELÍAS Non-Admin Reason: Patient Refused Lorazepam (Lorazepam 2 Mg/Ml Vial) 1 mg IM BID PRN PRN Reason: Refusal Of PO Ativan Last Admin: 09/26/21 23:18 Dose: 1 mg Documented by: WILMER Magnesium Hydroxide (Milk Of Magnesia 30 Ml Oral.Susp) 30 ml PO DAILY PRN PRN Reason: Constipation Melatonin (Melatonin 3 Mg Tablet) 9 mg PO BEDTIME [facility] Last Admin: 09/27/21 22:05 Dose: Not Given Documented by: ELÍAS Non-Admin Reason: Patient Refused Multivitamins/Vitamin C (Multivitamin Tablet) 1 tab PO DAILY [facility] Last Admin: 09/27/21 11:12 Dose: Not Given Documented by: KOBY Non-Admin Reason: Patient Refused Omeprazole (Omeprazole 20 Mg Capsule.) 20 mg PO BID@0630,1630 [facility] Last Admin: 09/27/21 18:11 Dose: Not Given Documented by: KOBY Non-Admin Reason: Patient Refused Oxycodone HCl (Oxycodone Hcl Er 10 Mg Tab.Er.12h) 10 mg PO Q12H [facility] Last Admin: 09/13/21 11:35 Dose: Not Given Documented by: KOBY Non-Admin Reason: Physician Held Med Quetiapine Fumarate (Quetiapine Fumarate 100 Mg Tablet) 100 mg PO BEDTIME PRN PRN Reason: Insomnia Quetiapine Fumarate (Quetiapine Fumarate 50 Mg Tablet) 50 mg PO Q4H PRN PRN Reason: anxiety Quetiapine Fumarate (Quetiapine Fumarate 200 Mg Tablet) 200 mg PO TID [facility] Last Admin: 09/27/21 22:05 Dose: Not Given Documented by: ELÍAS Non-Admin Reason: Patient Refused Trazodone HCl (Trazodone Hcl 50 Mg Tablet) 50 mg PO BEDTIME PRN PRN Reason: Insomnia Labs CBC & Chem 7: 09/14/21 07:24 09/28/21 08:29 Labs: Laboratory Results - last 24 hr 09/27/21 09/28/21 11:31 08:29 Anion Gap 14 14 Estim Creat Clear Calc 76.9 80.4 Estimated GFR > 60 > 60 Random Glucose 105 99 Calcium 9.3 9.5 Assessment and Plan (1) Acute deep vein thrombosis (DVT) of left tibial vein: Status: Acute (2) Bipolar 1 disorder: Status: Acute Plan 65yo F admitted to inpatient psychiatry;s/p L TKA 08/09/21 who developed a LLE DVT diagnosed 09/05/21 treated with apixaban initially, but then refused PO intake switched to enoxaparin but then developed a rash;hospitalists consulted for management of DVT + concern for dehydration # LLE DVT - fondaparinux 7.5 mg SQ daily started 09/16/21; change to apixaban 5 mg bid once taking PO # poor PO intake - monitor labs + physical exam periodically for signs of dehydration # catatonia - management as per Psychiatry Quality Stroke Does the patient have a stroke diagnosis?: No VTE Prior VTE?: No VTE Risk Level:: Medical - low VTE Device Contraindication: Patient Refused VTE Drug Contraindication: Patient Refused
[2021-09-28] MEDS: Haloperidol Lactate 5 MG/ML VIAL IM (09:58)
[2021-09-28] MEDS: LORazepam 2 MG/ML VIAL 1 MG IM ×2 (09:58→22:05)
[2021-09-28] MEDS: Fondaparinux Sodium 7.5 MG/0.6 ML SYRINGE SUBCUT (11:20)
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
--- NOTE | 2021-09-28 15:44 | MHC.CLN ---
F/U PATIENT 1:1 IN ROOM. STAFF REPORTS THAT TOOK ONLY WATER AND ICE CHIPS TODAY. REFUSED ALL OTHER FOOD/SUPPLEMENT. OVERALL INTAKE APPEARS POOR. DOES ACCEPT FLUIDS AND ENSURE SUPPLEMENT AT TIMES. ENSURE TID PROVIDES ADDITIONAL 1050 KCAL, 60 G PROTEIN. SIGNIFICANT WEIGHT LOSS: X 2 MONTHS -13.3%; X 4 MONTHS -11.6%. PATIENT AWAKE, BUT DID NOT REPLY TO ME. CONTINUE TO FOLLOW WEIGHTS, LABS, AND INTAKE.
[2021-09-28 15:53] VITALS: BMI 22.1
[2021-09-28 16:00] VITALS: BP 130/86; PULSE 102; RESP 16; TEMP 37; O2SAT 97
[2021-09-28] MEDS: Haloperidol Lactate 5 MG/ML VIAL 7.5 MG IM (22:04)
[2021-09-28 22:07] VITALS: BP 132/82; PULSE 100; RESP 14; TEMP 36.8; O2SAT 96
[2021-09-29] VITALS (7 sets, daily range): BP systolic 101–140; BP diastolic 76–86; PULSE 94–100; RESP 14–16; TEMP 36.2–36.7; O2SAT 96–97; BMI 20.9
[2021-09-29] MEDS: Haloperidol Lactate 5 MG/ML VIAL 7.5 MG IM ×2 (10:12→21:28)
[2021-09-29] MEDS: LORazepam 2 MG/ML VIAL 1 MG IM ×2 (10:13→21:29)
--- NOTE | 2021-09-29 10:21 | HO.PM.IMPN ---
Subjective Subjective Date of Service: 09/29/21 Interval History: Drank some fluids, not eating or taking PO meds Uncooperative with interview + exam Review of Systems Review of Systems: Yes Unobtainable due to mental status Physical Exam Vital Signs: Vital Signs: Last Vital Signs Temp 98.2 F 09/28/21 22:07 Pulse 100 09/28/21 22:07 Resp 14 09/29/21 04:00 BP 132/82 09/28/21 22:07 Pulse Ox 96 09/28/21 22:07 BMI result Body Mass Index 22.1 Gen: restricted affect Lungs: clear to auscultation bilaterally Heart: regular rate and rhythm, no murmurs Abd: soft, non-tender, non-distended Ext: no swelling in legs Skin: no rash Objective Data Active Medications Acetaminophen (Acetaminophen 325 Mg Tablet) 650 mg PO Q6H PRN PRN Reason: Fever Or Pain Al Hydroxide/Mg Hydroxide (Magnesium Hydrox/Alum Hydrox 30 Ml Oral.Susp) 30 ml PO Q6H PRN PRN Reason: Heartburn/Nausea Calcium Carbonate/Cholecalciferol (Calcium + Vitamin D 250 Mg Tablet) 250 mg PO DAILY [facility] Last Admin: 09/28/21 10:02 Dose: Not Given Documented by: NELSON Non-Admin Reason: Patient Refused Docusate Sodium (Docusate Sodium 100 Mg Capsule) 100 mg PO BID [facility] Last Admin: 09/28/21 21:36 Dose: Not Given Documented by: STANTON Non-Admin Reason: Patient Refused Fluticasone Propionate (Fluticasone Propionate Nasal 16 Gm [place]) 1 spray NOSTRIL-B DAILY PRN PRN Reason: Allergy Symptoms Fondaparinux (Fondaparinux Sodium 7.5 Mg/0.6 Ml Syringe) 7.5 mg SUBCUT Q24H [facility] Last Admin: 09/28/21 11:20 Dose: 7.5 mg Documented by: NELSON Gabapentin (Gabapentin 100 Mg Capsule) 200 mg PO TID [facility] Last Admin: 09/28/21 21:36 Dose: Not Given Documented by: STANTON Non-Admin Reason: Patient Refused Haloperidol Lactate (Haloperidol Lactate 5 Mg/Ml Vial) 7.5 mg IM BID PRN PRN Reason: refusal of PO Seroquel Last Admin: 09/28/21 22:04 Dose: 7.5 mg Documented by: STANTON Hydrocortisone (Hydrocortisone 1 % Cream 28.35 Gm Tube) 1 appl TOPICAL BID PRN PRN Reason: rash Lactulose (Lactulose 20 Gm/30 Ml Solution) 10 gm PO BID PRN PRN Reason: constipation Loratadine (Loratadine 10 Mg Tablet) 10 mg PO DAILY [facility] Last Admin: 09/28/21 10:03 Dose: Not Given Documented by: IESHATALChristen Non-Admin Reason: Patient Refused Lorazepam (Lorazepam 2 Mg/Ml Vial) 1 mg IM BID PRN PRN Reason: refusal of PO seroquel Last Admin: 09/28/21 09:58 Dose: 1 mg Documented by: NELSON Lorazepam (Lorazepam 1 Mg Tablet) 1 mg PO TID [facility] Last Admin: 09/28/21 21:37 Dose: Not Given Documented by: STANTON Non-Admin Reason: Patient Refused Lorazepam (Lorazepam 2 Mg/Ml Vial) 1 mg IM BID PRN PRN Reason: Refusal Of PO Ativan Last Admin: 09/28/21 22:05 Dose: 1 mg Documented by: STANTON Magnesium Hydroxide (Milk Of Magnesia 30 Ml Oral.Susp) 30 ml PO DAILY PRN PRN Reason: Constipation Melatonin (Melatonin 3 Mg Tablet) 9 mg PO BEDTIME [facility] Last Admin: 09/28/21 21:37 Dose: Not Given Documented by: STANTON Non-Admin Reason: Patient Refused Multivitamins/Vitamin C (Multivitamin Tablet) 1 tab PO DAILY [facility] Last Admin: 09/28/21 10:03 Dose: Not Given Documented by: NELSON Non-Admin Reason: Patient Refused Omeprazole (Omeprazole 20 Mg Capsule.Dr) 20 mg PO BID@0630,1630 [facility] Last Admin: 09/29/21 07:33 Dose: Not Given Documented by: STANTON Non-Admin Reason: Patient Refused Oxycodone HCl (Oxycodone Hcl Er 10 Mg Tab.Er.12h) 10 mg PO Q12H [facility] Last Admin: 09/13/21 11:35 Dose: Not Given Documented by: KOBY Non-Admin Reason: Physician Held Med Quetiapine Fumarate (Quetiapine Fumarate 100 Mg Tablet) 100 mg PO BEDTIME PRN PRN Reason: Insomnia Quetiapine Fumarate (Quetiapine Fumarate 50 Mg Tablet) 50 mg PO Q4H PRN PRN Reason: anxiety Quetiapine Fumarate (Quetiapine Fumarate 200 Mg Tablet) 200 mg PO TID [facility] Last Admin: 09/28/21 21:37 Dose: Not Given Documented by: STANTON Non-Admin Reason: Patient Refused Trazodone HCl (Trazodone Hcl 50 Mg Tablet) 50 mg PO BEDTIME PRN PRN Reason: Insomnia Labs CBC & Chem 7: 09/14/21 07:24 09/28/21 08:29 Assessment and Plan (1) Acute deep vein thrombosis (DVT) of left tibial vein: Status: Acute (2) Bipolar 1 disorder: Status: Acute Plan 65yo F admitted to inpatient psychiatry;s/p L TKA 08/09/21 who developed a LLE DVT diagnosed 09/05/21 treated with apixaban initially, but then refused PO intake switched to enoxaparin but then developed a rash;hospitalists consulted for management of DVT + concern for dehydration # LLE DVT - fondaparinux 7.5 mg SQ daily started 09/16/21; change to apixaban 5 mg bid once taking PO # poor PO intake - monitor electrolytes + physical exam periodically for signs of dehydration; at this point, there are none # catatonia - management as per Psychiatry Quality Stroke Does the patient have a stroke diagnosis?: No VTE Prior VTE?: No VTE Risk Level:: Medical - low VTE Device Contraindication: Patient Refused VTE Drug Contraindication: Patient Refused
[2021-09-29] MEDS: Fondaparinux Sodium 7.5 MG/0.6 ML SYRINGE SUBCUT (11:50)
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
[2021-09-30] VITALS: RESP 14
[2021-09-30 04:00] VITALS: RESP 14
[2021-09-30 08:00] VITALS: BP 133/79; PULSE 90; RESP 14; TEMP 36.6; O2SAT 98
--- NOTE | 2021-09-30 09:20 | HO.PM.IMPN ---
Subjective Subjective Date of Service: 09/30/21 Interval History: eating ice cream this morning very guarded, unable to obtain ROS Review of Systems Review of Systems: Yes Unobtainable due to mental status Physical Exam Vital Signs: Vital Signs: Last Vital Signs Temp 97.8 F 09/30/21 08:00 Pulse 90 09/30/21 08:00 Resp 14 09/30/21 08:00 BP 133/79 09/30/21 08:00 Pulse Ox 98 09/30/21 08:00 BMI result Body Mass Index 20.9 Gen: restricted affect Lungs: clear to auscultation bilaterally Heart: regular rate and rhythm, no murmurs Abd: soft, non-tender, non-distended Ext: no swelling in legs Skin: no rash Objective Data Active Medications Acetaminophen (Acetaminophen 325 Mg Tablet) 650 mg PO Q6H PRN PRN Reason: Fever Or Pain Al Hydroxide/Mg Hydroxide (Magnesium Hydrox/Alum Hydrox 30 Ml Oral.Susp) 30 ml PO Q6H PRN PRN Reason: Heartburn/Nausea Calcium Carbonate/Cholecalciferol (Calcium + Vitamin D 250 Mg Tablet) 250 mg PO DAILY [facility] Last Admin: 09/29/21 10:37 Dose: Not Given Documented by: DOSTALD Non-Admin Reason: Patient Refused Docusate Sodium (Docusate Sodium 100 Mg Capsule) 100 mg PO BID [facility] Last Admin: 09/29/21 21:35 Dose: Not Given Documented by: IESHATALD Non-Admin Reason: Patient Refused Fluticasone Propionate (Fluticasone Propionate Nasal 16 Gm [place]) 1 spray NOSTRIL-B DAILY PRN PRN Reason: Allergy Symptoms Fondaparinux (Fondaparinux Sodium 7.5 Mg/0.6 Ml Syringe) 7.5 mg SUBCUT Q24H [facility] Last Admin: 09/29/21 11:50 Dose: 7.5 mg Documented by: DOSTALD Gabapentin (Gabapentin 100 Mg Capsule) 200 mg PO TID [facility] Last Admin: 09/29/21 21:35 Dose: Not Given Documented by: DOSTALD Non-Admin Reason: Patient Refused Haloperidol Lactate (Haloperidol Lactate 5 Mg/Ml Vial) 7.5 mg IM BID PRN PRN Reason: refusal of PO Seroquel Last Admin: 09/29/21 21:28 Dose: 7.5 mg Documented by: DOSTALD Hydrocortisone (Hydrocortisone 1 % Cream 28.35 Gm Tube) 1 appl TOPICAL BID PRN PRN Reason: rash Lactulose (Lactulose 20 Gm/30 Ml Solution) 10 gm PO BID PRN PRN Reason: constipation Loratadine (Loratadine 10 Mg Tablet) 10 mg PO DAILY [facility] Last Admin: 09/29/21 10:37 Dose: Not Given Documented by: DOSTALD Non-Admin Reason: Patient Refused Lorazepam (Lorazepam 1 Mg Tablet) 1 mg PO TID [facility] Last Admin: 09/29/21 21:35 Dose: Not Given Documented by: DOSTALD Non-Admin Reason: Patient Refused Lorazepam (Lorazepam 2 Mg/Ml Vial) 1 mg IM BID PRN PRN Reason: Refusal Of PO Ativan Last Admin: 09/29/21 21:29 Dose: 1 mg Documented by: DOSTALD Magnesium Hydroxide (Milk Of Magnesia 30 Ml Oral.Susp) 30 ml PO DAILY PRN PRN Reason: Constipation Melatonin (Melatonin 3 Mg Tablet) 9 mg PO BEDTIME [facility] Last Admin: 09/29/21 21:36 Dose: Not Given Documented by: DOSTALD Non-Admin Reason: Patient Refused Multivitamins/Vitamin C (Multivitamin Tablet) 1 tab PO DAILY [facility] Last Admin: 09/29/21 10:37 Dose: Not Given Documented by: DOSTALD Non-Admin Reason: Patient Refused Nicotine Polacrilex (Nicotine Polacrilex Lozenge 2 Mg Lozenge) 2 mg BUCCAL Q1H PRN PRN Reason: Nicotine Cravings Omeprazole (Omeprazole 20 Mg Capsule.Dr) 20 mg PO BID@0630,1630 [facility] Last Admin: 09/29/21 16:02 Dose: Not Given Documented by: DOSTALD Non-Admin Reason: Patient Refused Oxycodone HCl (Oxycodone Hcl Er 10 Mg Tab.Er.12h) 5 mg PO Q12H PRN PRN Reason: right foot/leg pain Quetiapine Fumarate (Quetiapine Fumarate 100 Mg Tablet) 100 mg PO BEDTIME PRN PRN Reason: Insomnia Quetiapine Fumarate (Quetiapine Fumarate 50 Mg Tablet) 50 mg PO Q4H PRN PRN Reason: anxiety Quetiapine Fumarate (Quetiapine Fumarate 200 Mg Tablet) 200 mg PO TID [facility] Last Admin: 09/29/21 21:35 Dose: Not Given Documented by: NELSON Non-Admin Reason: Patient Refused Trazodone HCl (Trazodone Hcl 50 Mg Tablet) 50 mg PO BEDTIME PRN PRN Reason: Insomnia Labs CBC & Chem 7: 09/14/21 07:24 09/28/21 08:29 Assessment and Plan (1) Acute deep vein thrombosis (DVT) of left tibial vein: Status: Acute (2) Bipolar 1 disorder: Status: Acute Plan 65yo F admitted to inpatient psychiatry;s/p L TKA 08/09/21 who developed a LLE DVT diagnosed 09/05/21 treated with apixaban initially, but then refused PO intake switched to enoxaparin but then developed a rash;hospitalists consulted for management of DVT + concern for dehydration # LLE DVT - fondaparinux 7.5 mg SQ daily started 09/16/21; change to apixaban 5 mg bid once taking PO # poor PO intake - monitor electrolytes + physical exam periodically for signs of dehydration; at this point, there are none and she is eating ice cream - will check labs tomorrow # catatonia - management as per Psychiatry Quality Stroke Does the patient have a stroke diagnosis?: No VTE Prior VTE?: No VTE Risk Level:: Medical - low VTE Device Contraindication: Patient Refused VTE Drug Contraindication: Patient Refused
[2021-09-30] MEDS: Haloperidol Lactate 5 MG/ML VIAL 7.5 MG IM ×2 (10:34→21:55)
[2021-09-30] MEDS: LORazepam 2 MG/ML VIAL 1 MG IM ×2 (10:35→21:55)
--- NOTE | 2021-09-30 11:22 | HO.PSYCHPN ---
Subjective Subjective Date of Service: 09/30/21 Reason For Visit: Psychosis Interim History: pt seen in her room. sitting up on her bed, awake and alert. greets MD as dawna, unable to be convinced by multiple staff present that this investment underwriter is not dawna. accuses this investment underwriter of having harmed someone she named (female name), also apparently delusional. pt asked MD to leave. MD encouraged her to take PO medication and nutrition. per staff, remains on 1:1. isolative, ambivalent. ate 25% of breakfast and lunch. refusing PO meds, getting IMs instead. overheasrd to have said, i want to kill myself, and, i want to leave. drank 1/2 cup tea and some water later in the day, ate come ice cream and a brownie. slept through the night. Mental Status Exam Mental Status Exam Narrative: Pt awake and alert. She is in hospital attire, disorganized, unable to collaborate in her care, excessive eye contact. disorganized thoughts. mistrustful, delusional. affect constricted, not irritable or labile. no SI/HI/AVH expressed. Patient Appearance: Disheveled Diagnostics Vital Signs (24Hr): Vital Signs - 24 hr 09/29/21 11:35 09/29/21 12:00 09/29/21 16:00 Temperature 98.1 F 97.7 F Pulse Rate 100 96 97 Respiratory Rate 16 16 Blood Pressure 132/82 105/78 113/78 Pulse Oximetry 96 97 97 09/29/21 21:00 09/30/21 00:00 09/30/21 04:00 Temperature 97.2 F Pulse Rate 94 Respiratory Rate 16 14 14 Blood Pressure 140/86 H Pulse Oximetry 97 09/30/21 08:00 Temperature 97.8 F Pulse Rate 90 Respiratory Rate 14 Blood Pressure 133/79 Pulse Oximetry 98 BMI result Body Mass Index 20.9 Labs Results: 09/14/21 07:24 09/28/21 08:29 Imaging Radiology Impressions: [facility] Impressions Head CT 09/13/21 12:37 IMPRESSION: No acute intracranial findings. Medications Medications Current Medications Acetaminophen (Acetaminophen 325 Mg Tablet) 650 mg PO Q6H PRN PRN Reason: Fever Or Pain Al Hydroxide/Mg Hydroxide (Magnesium Hydrox/Alum Hydrox 30 Ml Oral.Susp) 30 ml PO Q6H PRN PRN Reason: Heartburn/Nausea Calcium Carbonate/Cholecalciferol (Calcium + Vitamin D 250 Mg Tablet) 250 mg PO DAILY [facility] Last Admin: 09/30/21 10:53 Dose: Not Given Documented by: Docusate Sodium (Docusate Sodium 100 Mg Capsule) 100 mg PO BID [facility] [place] Last Admin: 09/30/21 10:53 Dose: Not Given Documented by: Fluticasone Propionate (Fluticasone Propionate Nasal 16 Gm [place]) 1 spray NOSTRIL-B DAILY PRN PRN Reason: Allergy Symptoms Fondaparinux (Fondaparinux Sodium 7.5 Mg/0.6 Ml Syringe) 7.5 mg SUBCUT Q24H [facility] [place] Last Admin: 09/29/21 11:50 Dose: 7.5 mg Documented by: Gabapentin (Gabapentin 100 Mg Capsule) 200 mg PO TID [facility] [place] Last Admin: 09/30/21 10:53 Dose: Not Given Documented by: Haloperidol Lactate (Haloperidol Lactate 5 Mg/Ml Vial) 7.5 mg IM BID PRN PRN Reason: refusal of PO Seroquel Last Admin: 09/30/21 10:34 Dose: 7.5 mg Documented by: Hydrocortisone (Hydrocortisone 1 % Cream 28.35 Gm Tube) 1 appl TOPICAL BID PRN PRN Reason: rash Lactulose (Lactulose 20 Gm/30 Ml Solution) 10 gm PO BID PRN PRN Reason: constipation Loratadine (Loratadine 10 Mg Tablet) 10 mg PO DAILY [facility] [place] Last Admin: 09/30/21 10:54 Dose: Not Given Documented by: Lorazepam (Lorazepam 1 Mg Tablet) 1 mg PO TID [facility] [place] Last Admin: 09/30/21 10:54 Dose: Not Given Documented by: Lorazepam (Lorazepam 2 Mg/Ml Vial) 1 mg IM BID PRN PRN Reason: Refusal Of PO Ativan Last Admin: 09/30/21 10:35 Dose: 1 mg Documented by: Magnesium Hydroxide (Milk Of Magnesia 30 Ml Oral.Susp) 30 ml PO DAILY PRN PRN Reason: Constipation Melatonin (Melatonin 3 Mg Tablet) 9 mg PO BEDTIME [facility] [place] Last Admin: 09/29/21 21:36 Dose: Not Given Documented by: Multivitamins/Vitamin C (Multivitamin Tablet) 1 tab PO DAILY [facility] [place] Last Admin: 09/30/21 10:54 Dose: Not Given Documented by: Nicotine Polacrilex (Nicotine Polacrilex Lozenge 2 Mg Lozenge) 2 mg BUCCAL Q1H PRN PRN Reason: Nicotine Cravings Omeprazole (Omeprazole 20 Mg Capsule.Dr) 20 mg PO BID@0630,1630 [facility] [place] Last Admin: 09/30/21 10:53 Dose: Not Given Documented by: Oxycodone HCl (Oxycodone Hcl Er 10 Mg Tab.Er.12h) 5 mg PO Q12H PRN PRN Reason: right foot/leg pain Quetiapine Fumarate (Quetiapine Fumarate 100 Mg Tablet) 100 mg PO BEDTIME PRN PRN Reason: Insomnia Quetiapine Fumarate (Quetiapine Fumarate 50 Mg Tablet) 50 mg PO Q4H PRN PRN Reason: anxiety Quetiapine Fumarate (Quetiapine Fumarate 200 Mg Tablet) 200 mg PO TID [facility] [place] Last Admin: 09/30/21 10:54 Dose: Not Given Documented by: Trazodone HCl (Trazodone Hcl 50 Mg Tablet) 50 mg PO BEDTIME PRN PRN Reason: Insomnia Allergies Allergies Allergy/AdvReac Type Severity Reaction Status Date / Time bee pollen Allergy Severe Anaphylaxis Verified 08/25/21 12:46 levofloxacin [From Levaquin] Allergy Severe Itching Verified 08/25/21 12:46 enoxaparin [From Lovenox] Allergy Intermediate Rash Verified 09/12/21 13:58 Penicillins Allergy Unknown Unknown Verified 08/25/21 12:46 Assessment & Plan Assessment & Plan (1) Acute deep vein thrombosis (DVT) of left tibial vein: Status: Acute Code(s): I82.442 - Acute embolism and thrombosis of left tibial vein Assessment and Plan: 65yo F admitted to inpatient psychiatry;s/p L TKA 08/09/21 who developed a LLE DVT diagnosed 09/05/21 treated with apixaban initially, but then refused PO intake switched to enoxaparin but then developed a rash;hospitalists consulted for management of DVT + concern for dehydration # LLE DVT - fondaparinux 7.5 mg SQ daily started 09/16/21; change to apixaban 5 mg bid once taking PO # poor PO intake - monitor electrolytes + physical exam periodically for signs of dehydration; at this point, there are none and she is eating ice cream - will check labs tomorrow # catatonia - management as per Psychiatry (2) Bipolar 1 disorder: Status: Acute Code(s): F31.9 - Bipolar disorder, unspecified Plan ativan 1 mg TID for recent catatonia.? continue the medication to reduce anxiety/paranoia/mixed lucrecia for now. give usual home meds except for the following: decrease oxycontin to 5 mg each and make PRN. fondaparinux 7.5 mg SQ daily for clot prophylaxis. hospitalist to review medical circumstance regularly.? hospitalist input and involvement appreciated. committed and medications ordered by court 09/20. haldol and ativan IM back-up for med refusal. continues to require regular IMs as of 09/30 due to refusing PO medications. haldol IM back-up increased from 5 mg BID PRN to 7.5 mg BID PRN as of 09/28. labs 09/28 reassuring re kidney fxn. I spent ___25___ minutes with the patient and/or on the patient floor today, greater than?50% of which was spent counseling/coordinating care. Reason for contiued inpatient stay Substantial Risk for: harm to self, inability to function, rapid decompensation and med/psych decompensation
[2021-09-30] MEDS: Fondaparinux Sodium 7.5 MG/0.6 ML SYRINGE SUBCUT (12:07)
[2021-09-30 16:00] VITALS: BP 135/81; PULSE 96; RESP 17; TEMP 36.6; O2SAT 99
--- NOTE | 2021-09-30 16:14 | MHC.CLN ---
F/U INTAKE AT [employer]. ACCEPTING SOME SNACK FOODS. CONTINUE TO PROVIDES SUPPLEMENT AND FOLLOW INTAKE AND LABS.
[2021-09-30 21:10] VITALS: RESP 16
[2021-10-01 01:22] VITALS: RESP 16
[2021-10-01 04:44] VITALS: RESP 14
[2021-10-01 08:25] VITALS: BP 109/78; PULSE 123; RESP 18; TEMP 36.6
--- NOTE | 2021-10-01 09:26 | HO.PM.IMPN ---
Subjective Subjective Date of Service: 10/01/21 Interval History: Very guarded. States she feels horrible but not any more specific. Ambulating. Refusing to eat. Review of Systems Review of Systems: Yes Unobtainable due to mental status Physical Exam Vital Signs: Vital Signs: Last Vital Signs Temp 97.9 F 10/01/21 08:25 Pulse 123 H 10/01/21 08:25 Resp 18 10/01/21 08:25 BP 109/78 10/01/21 08:25 Pulse Ox 99 09/30/21 16:00 BMI result Body Mass Index 20.9 Gen: restricted affect Lungs: clear to auscultation bilaterally Heart: regular rate and rhythm, no murmurs Abd: soft, non-tender, non-distended Ext: no swelling in legs Skin: no rash Objective Data Active Medications Acetaminophen (Acetaminophen 325 Mg Tablet) 650 mg PO Q6H PRN PRN Reason: Fever Or Pain Al Hydroxide/Mg Hydroxide (Magnesium Hydrox/Alum Hydrox 30 Ml Oral.Susp) 30 ml PO Q6H PRN PRN Reason: Heartburn/Nausea Calcium Carbonate/Cholecalciferol (Calcium + Vitamin D 250 Mg Tablet) 250 mg PO DAILY [facility] Last Admin: 09/30/21 10:53 Dose: Not Given Documented by: MICHOACANO Non-Admin Reason: Patient Refused Docusate Sodium (Docusate Sodium 100 Mg Capsule) 100 mg PO BID [facility] Last Admin: 09/30/21 21:30 Dose: Not Given Documented by: WILMER Non-Admin Reason: Patient Refused Fluticasone Propionate (Fluticasone Propionate Nasal 16 Gm [place]) 1 spray NOSTRIL-B DAILY PRN PRN Reason: Allergy Symptoms Fondaparinux (Fondaparinux Sodium 7.5 Mg/0.6 Ml Syringe) 7.5 mg SUBCUT Q24H [facility] Last Admin: 09/30/21 12:07 Dose: 7.5 mg Documented by: MICHOACANO Gabapentin (Gabapentin 100 Mg Capsule) 200 mg PO TID [facility] Last Admin: 09/30/21 21:30 Dose: Not Given Documented by: WILMER Non-Admin Reason: Patient Refused Haloperidol Lactate (Haloperidol Lactate 5 Mg/Ml Vial) 7.5 mg IM BID PRN PRN Reason: refusal of PO Seroquel Last Admin: 09/30/21 21:55 Dose: 7.5 mg Documented by: WILMER Hydrocortisone (Hydrocortisone 1 % Cream 28.35 Gm Tube) 1 appl TOPICAL BID PRN PRN Reason: rash Lactulose (Lactulose 20 Gm/30 Ml Solution) 10 gm PO BID PRN PRN Reason: constipation Loratadine (Loratadine 10 Mg Tablet) 10 mg PO DAILY [facility] Last Admin: 09/30/21 10:54 Dose: Not Given Documented by: MICHOACANO Non-Admin Reason: Patient Refused Lorazepam (Lorazepam 1 Mg Tablet) 1 mg PO TID [facility] Last Admin: 09/30/21 21:30 Dose: Not Given Documented by: WILMER Non-Admin Reason: Patient Refused Lorazepam (Lorazepam 2 Mg/Ml Vial) 1 mg IM BID PRN PRN Reason: Refusal Of PO Ativan Last Admin: 09/30/21 21:55 Dose: 1 mg Documented by: WILMER Magnesium Hydroxide (Milk Of Magnesia 30 Ml Oral.Susp) 30 ml PO DAILY PRN PRN Reason: Constipation Melatonin (Melatonin 3 Mg Tablet) 9 mg PO BEDTIME [facility] Last Admin: 09/30/21 21:30 Dose: Not Given Documented by: WILMER Non-Admin Reason: Patient Refused Multivitamins/Vitamin C (Multivitamin Tablet) 1 tab PO DAILY [facility] Last Admin: 09/30/21 10:54 Dose: Not Given Documented by: MICHOACANO Non-Admin Reason: Patient Refused Nicotine Polacrilex (Nicotine Polacrilex Lozenge 2 Mg Lozenge) 2 mg BUCCAL Q1H PRN PRN Reason: Nicotine Cravings Omeprazole (Omeprazole 20 Mg Capsule.) 20 mg PO BID@0630,1630 [facility] Last Admin: 09/30/21 17:51 Dose: Not Given Documented by: MICHOACANO Non-Admin Reason: Patient Refused Oxycodone HCl (Oxycodone Hcl Er 10 Mg Tab.Er.12h) 5 mg PO Q12H PRN PRN Reason: right foot/leg pain Quetiapine Fumarate (Quetiapine Fumarate 100 Mg Tablet) 100 mg PO BEDTIME PRN PRN Reason: Insomnia Quetiapine Fumarate (Quetiapine Fumarate 50 Mg Tablet) 50 mg PO Q4H PRN PRN Reason: anxiety Quetiapine Fumarate (Quetiapine Fumarate 200 Mg Tablet) 200 mg PO TID [facility] Last Admin: 09/30/21 21:30 Dose: Not Given Documented by: WILMER Non-Admin Reason: Patient Refused Trazodone HCl (Trazodone Hcl 50 Mg Tablet) 50 mg PO BEDTIME PRN PRN Reason: Insomnia Labs CBC & Chem 7: 09/14/21 07:24 09/28/21 08:29 Assessment and Plan (1) Acute deep vein thrombosis (DVT) of left tibial vein: Status: Acute (2) Bipolar 1 disorder: Status: Acute Plan 65yo F admitted to inpatient psychiatry;s/p L TKA 08/09/21 who developed a LLE DVT diagnosed 09/05/21 treated with apixaban initially, but then refused PO intake switched to enoxaparin but then developed a rash;hospitalists consulted for management of DVT + concern for dehydration # LLE DVT - fondaparinux 7.5 mg SQ daily started 09/16/21; change to apixaban 5 mg bid once taking PO # poor PO intake - monitor electrolytes + physical exam periodically for signs of dehydration; at this point, there are none and she is eating ice cream - labs ordered for today # catatonia - management as per Psychiatry Quality Stroke Does the patient have a stroke diagnosis?: No VTE Prior VTE?: No VTE Risk Level:: Medical - low VTE Device Contraindication: Patient Refused VTE Drug Contraindication: Patient Refused
[2021-10-01] MEDS: LORazepam 2 MG/ML VIAL 1 MG IM (10:19)
[2021-10-01] MEDS: Haloperidol Lactate 5 MG/ML VIAL 7.5 MG IM ×2 (10:19→22:16)
[2021-10-01] MEDS: Fondaparinux Sodium 7.5 MG/0.6 ML SYRINGE SUBCUT (10:48)
[2021-10-01 12:00] VITALS: BP 132/83; PULSE 93; RESP 18; O2SAT 98
[2021-10-01 12:50] LABS: Anion Gap 14 (12-20); Blood Urea Nitrogen 9 mg/dL (9-16); Calcium 9.6 mg/dL (8.4-10.2); Carbon Dioxide 27 mmol/L (22-29); Chloride 98 mmol/L (96-108); Creatinine Clr Calc Pharmacy 68.3; Estimated Glomerular Filt Rate > 60; Glucose Random 129 mg/dL (60-115); Phosphorus 3.1 mg/dL (2.7-4.5); Potassium 3.8 mmol/L (3.3-5.1); Sodium 135 mmol/L (135-145)
[2021-10-01 16:00] VITALS: BP 134/87; PULSE 104; RESP 18; O2SAT 98
--- NOTE | 2021-10-01 18:40 | HO.PSYCHPN ---
Subjective Subjective Date of Service: 10/01/21 Reason For Visit: Psychosis Interim History: pt found lying in bed in her room, awake. refers to MD as dawna, despite MD once again identifying himself as a psychiatrist, Dr. Meredith, her attending. MD encouraged PO fluids and medications. pt became irritable and said, go away, dawna. per staff, restless and pacing yesterday. refusing meds. still getting IMs. not sleeping very well. Mental Status Exam Mental Status Exam Narrative: Pt awake and alert. She is in hospital attire, disorganized, unable to collaborate in her care, excessive eye contact. disorganized thoughts. mistrustful, delusional. affect constricted, irritable and non-labile. no SI/HI/AVH expressed. Patient Appearance: Disheveled Diagnostics Vital Signs (24Hr): Vital Signs - 24 hr 09/30/21 21:10 10/01/21 01:22 10/01/21 04:44 Temperature Pulse Rate Respiratory Rate 16 16 14 Blood Pressure Pulse Oximetry 10/01/21 08:25 10/01/21 12:00 10/01/21 16:00 Temperature 97.9 F Pulse Rate 123 H 93 104 H Respiratory Rate 18 18 18 Blood Pressure 109/78 132/83 134/87 Pulse Oximetry 98 98 BMI result Body Mass Index 20.9 Labs Results: 09/14/21 07:24 10/01/21 12:25 Labs: Laboratory Results - last 48 hr 10/01/21 12:25 Sodium 135 Potassium 3.8 Chloride 98 Carbon Dioxide 27 Anion Gap 14 BUN 9 Creatinine 0.77 Estim Creat Clear Calc 68.3 Estimated GFR > 60 Random Glucose 129 H Calcium 9.6 Phosphorus 3.1 Magnesium 2.0 Imaging Radiology Impressions: ITS Impressions Head CT 09/13/21 12:37 IMPRESSION: No acute intracranial findings. Medications Medications Current Medications Acetaminophen (Acetaminophen 325 Mg Tablet) 650 mg PO Q6H PRN PRN Reason: Fever Or Pain Al Hydroxide/Mg Hydroxide (Magnesium Hydrox/Alum Hydrox 30 Ml Oral.Susp) 30 ml PO Q6H PRN PRN Reason: Heartburn/Nausea Calcium Carbonate/Cholecalciferol (Calcium + Vitamin D 250 Mg Tablet) 250 mg PO DAILY [facility] Last Admin: 10/01/21 10:46 Dose: Not Given Documented by: Docusate Sodium (Docusate Sodium 100 Mg Capsule) 100 mg PO BID [facility] Last Admin: 10/01/21 10:46 Dose: Not Given Documented by: Fluticasone Propionate (Fluticasone Propionate Nasal 16 Gm [place]) 1 spray NOSTRIL-B DAILY PRN PRN Reason: Allergy Symptoms Fondaparinux (Fondaparinux Sodium 7.5 Mg/0.6 Ml Syringe) 7.5 mg SUBCUT Q24H [facility] Last Admin: 10/01/21 10:48 Dose: 7.5 mg Documented by: Gabapentin (Gabapentin 100 Mg Capsule) 200 mg PO TID [facility] Last Admin: 10/01/21 17:52 Dose: Not Given Documented by: Haloperidol Lactate (Haloperidol Lactate 5 Mg/Ml Vial) 7.5 mg IM BID PRN PRN Reason: refusal of PO Seroquel Last Admin: 10/01/21 10:19 Dose: 7.5 mg Documented by: Hydrocortisone (Hydrocortisone 1 % Cream 28.35 Gm Tube) 1 appl TOPICAL BID PRN PRN Reason: rash Lactulose (Lactulose 20 Gm/30 Ml Solution) 10 gm PO BID PRN PRN Reason: constipation Loratadine (Loratadine 10 Mg Tablet) 10 mg PO DAILY [facility] Last Admin: 10/01/21 10:46 Dose: Not Given Documented by: Lorazepam (Lorazepam 1 Mg Tablet) 1 mg PO TID [facility] Last Admin: 10/01/21 17:52 Dose: Not Given Documented by: Lorazepam (Lorazepam 2 Mg/Ml Vial) 1 mg IM BID PRN PRN Reason: Refusal Of PO Ativan Last Admin: 10/01/21 10:19 Dose: 1 mg Documented by: Magnesium Hydroxide (Milk Of Magnesia 30 Ml Oral.Susp) 30 ml PO DAILY PRN PRN Reason: Constipation Melatonin (Melatonin 3 Mg Tablet) 9 mg PO BEDTIME [facility] Last Admin: 09/30/21 21:30 Dose: Not Given Documented by: Multivitamins/Vitamin C (Multivitamin Tablet) 1 tab PO DAILY [facility] Last Admin: 10/01/21 10:46 Dose: Not Given Documented by: Nicotine Polacrilex (Nicotine Polacrilex Lozenge 2 Mg Lozenge) 2 mg BUCCAL Q1H PRN PRN Reason: Nicotine Cravings Omeprazole (Omeprazole 20 Mg Capsule.Dr) 20 mg PO BID@0630,1630 [facility] Last Admin: 10/01/21 17:52 Dose: Not Given Documented by: Oxycodone HCl (Oxycodone Hcl Er 10 Mg Tab.Er.12h) 5 mg PO Q12H PRN PRN Reason: right foot/leg pain Quetiapine Fumarate (Quetiapine Fumarate 100 Mg Tablet) 100 mg PO BEDTIME PRN PRN Reason: Insomnia Quetiapine Fumarate (Quetiapine Fumarate 50 Mg Tablet) 50 mg PO Q4H PRN PRN Reason: anxiety Quetiapine Fumarate (Quetiapine Fumarate 200 Mg Tablet) 200 mg PO TID [facility] Last Admin: 10/01/21 17:52 Dose: Not Given Documented by: Trazodone HCl (Trazodone Hcl 50 Mg Tablet) 50 mg PO BEDTIME PRN PRN Reason: Insomnia Allergies Allergies Allergy/AdvReac Type Severity Reaction Status Date / Time bee pollen Allergy Severe Anaphylaxis Verified 08/25/21 12:46 levofloxacin [From Levaquin] Allergy Severe Itching Verified 08/25/21 12:46 enoxaparin [From Lovenox] Allergy Intermediate Rash Verified 09/12/21 13:58 Penicillins Allergy Unknown Unknown Verified 08/25/21 12:46 Assessment & Plan Assessment & Plan (1) Acute deep vein thrombosis (DVT) of left tibial vein: Status: Acute Code(s): I82.442 - Acute embolism and thrombosis of left tibial vein Assessment and Plan: 65yo F admitted to inpatient psychiatry;s/p L TKA 08/09/21 who developed a LLE DVT diagnosed 09/05/21 treated with apixaban initially, but then refused PO intake switched to enoxaparin but then developed a rash;hospitalists consulted for management of DVT + concern for dehydration # LLE DVT - fondaparinux 7.5 mg SQ daily started 09/16/21; change to apixaban 5 mg bid once taking PO # poor PO intake - monitor electrolytes + physical exam periodically for signs of dehydration; at this point, there are none and she is eating ice cream - labs ordered for today # catatonia - management as per Psychiatry (2) Bipolar 1 disorder: Status: Acute Code(s): F31.9 - Bipolar disorder, unspecified Plan ativan 1 mg TID for recent catatonia.? continue the medication to reduce anxiety/paranoia/mixed lucrecia for now. give usual home meds except for the following: decrease oxycontin to 5 mg each and make PRN. fondaparinux 7.5 mg SQ daily for clot prophylaxis. hospitalist to review medical circumstance regularly.? hospitalist input and involvement appreciated. committed and medications ordered by court 09/20. haldol and ativan IM back-up for med refusal. continues to require regular IMs as of 09/30 due to refusing PO medications. haldol IM back-up increased from 5 mg BID PRN to 7.5 mg BID PRN as of 09/28. labs 09/28 reassuring re kidney fxn. I spent __20____ minutes with the patient and/or on the patient floor today, greater than?50% of which was spent counseling/coordinating care. Reason for contiued inpatient stay Substantial Risk for: harm to self, inability to function and rapid decompensation
[2021-10-01 21:59] VITALS: BP 131/63; PULSE 93; RESP 14; TEMP 35.9
[2021-10-01] MEDS: LORazepam 2 MG/ML VIAL IM (22:16)
[2021-10-02 01:36] VITALS: RESP 14
[2021-10-02 04:10] VITALS: RESP 14
[2021-10-02 09:00] VITALS: BP 113/62; PULSE 93; RESP 20; TEMP 36.6; O2SAT 95
--- NOTE | 2021-10-02 09:07 | P.PNIM_ITS ---
Subjective Subjective Date of Service: 10/02/21 Interval History: Drinking a little water. Refusing PO meds. Review of Systems Review of Systems: Yes Unobtainable due to mental status Physical Exam Vital Signs: Vital Signs: Last Vital Signs Temp 96.7 F L 10/01/21 21:59 Pulse 93 10/01/21 21:59 Resp 14 10/02/21 04:10 BP 131/63 10/01/21 21:59 Pulse Ox 98 10/01/21 16:00 BMI result Body Mass Index 20.9 Gen: restricted affect Lungs: clear to auscultation bilaterally Heart: regular rate and rhythm, no murmurs Abd: soft, non-tender, non-distended Ext: no swelling in legs Skin: no rash Objective Data Active Medications Acetaminophen (Acetaminophen 325 Mg Tablet) 650 mg PO Q6H PRN PRN Reason: Fever Or Pain Al Hydroxide/Mg Hydroxide (Magnesium Hydrox/Alum Hydrox 30 Ml Oral.Susp) 30 ml PO Q6H PRN PRN Reason: Heartburn/Nausea Calcium Carbonate/Cholecalciferol (Calcium + Vitamin D 250 Mg Tablet) 250 mg PO DAILY [facility] Last Admin: 10/01/21 10:46 Dose: Not Given Documented by: KOBY Non-Admin Reason: Patient Refused Docusate Sodium (Docusate Sodium 100 Mg Capsule) 100 mg PO BID [facility] Last Admin: 10/01/21 22:10 Dose: Not Given Documented by: WILMER Non-Admin Reason: Patient Refused Fluticasone Propionate (Fluticasone Propionate Nasal 16 Gm [place]) 1 spray NOSTRIL-B DAILY PRN PRN Reason: Allergy Symptoms Fondaparinux (Fondaparinux Sodium 7.5 Mg/0.6 Ml Syringe) 7.5 mg SUBCUT Q24H [facility] Last Admin: 10/01/21 10:48 Dose: 7.5 mg Documented by: KOBY Gabapentin (Gabapentin 100 Mg Capsule) 200 mg PO TID [facility] Last Admin: 10/01/21 22:10 Dose: Not Given Documented by: WILMER Non-Admin Reason: Patient Refused Haloperidol Lactate (Haloperidol Lactate 5 Mg/Ml Vial) 7.5 mg IM BID PRN PRN Reason: refusal of PO Seroquel Last Admin: 10/01/21 22:16 Dose: 7.5 mg Documented by: WILMER Hydrocortisone (Hydrocortisone 1 % Cream 28.35 Gm Tube) 1 appl TOPICAL BID PRN PRN Reason: rash Lactulose (Lactulose 20 Gm/30 Ml Solution) 10 gm PO BID PRN PRN Reason: constipation Loratadine (Loratadine 10 Mg Tablet) 10 mg PO DAILY [facility] Last Admin: 10/01/21 10:46 Dose: Not Given Documented by: KOBY Non-Admin Reason: Patient Refused Lorazepam (Lorazepam 2 Mg/Ml Vial) 2 mg IM BID PRN PRN Reason: Refusal Of PO Ativan Last Admin: 10/01/21 22:16 Dose: 2 mg Documented by: WILMER Magnesium Hydroxide (Milk Of Magnesia 30 Ml Oral.Susp) 30 ml PO DAILY PRN PRN Reason: Constipation Melatonin (Melatonin 3 Mg Tablet) 9 mg PO BEDTIME [facility] Last Admin: 10/01/21 22:11 Dose: Not Given Documented by: WILMER Non-Admin Reason: Patient Refused Multivitamins/Vitamin C (Multivitamin Tablet) 1 tab PO DAILY [facility] Last Admin: 10/01/21 10:46 Dose: Not Given Documented by: KOBY Non-Admin Reason: Patient Refused Nicotine Polacrilex (Nicotine Polacrilex Lozenge 2 Mg Lozenge) 2 mg BUCCAL Q1H PRN PRN Reason: Nicotine Cravings Omeprazole (Omeprazole 20 Mg Capsule.Dr) 20 mg PO BID@0630,1630 [facility] Last Admin: 10/01/21 17:52 Dose: Not Given Documented by: KOBY Non-Admin Reason: Patient Refused Oxycodone HCl (Oxycodone Hcl Er 10 Mg Tab.Er.12h) 5 mg PO Q12H PRN PRN Reason: right foot/leg pain Quetiapine Fumarate (Quetiapine Fumarate 100 Mg Tablet) 100 mg PO BEDTIME PRN PRN Reason: Insomnia Quetiapine Fumarate (Quetiapine Fumarate 50 Mg Tablet) 50 mg PO Q4H PRN PRN Reason: anxiety Quetiapine Fumarate (Quetiapine Fumarate 200 Mg Tablet) 200 mg PO TID [facility] Last Admin: 10/01/21 22:11 Dose: Not Given Documented by: WIMLER Non-Admin Reason: Patient Refused Trazodone HCl (Trazodone Hcl 50 Mg Tablet) 50 mg PO BEDTIME PRN PRN Reason: Insomnia Labs CBC & Chem 7: 09/14/21 07:24 10/01/21 12:25 Labs: Laboratory Results - last 24 hr 10/01/21 12:25 Anion Gap 14 Estim Creat Clear Calc 68.3 Estimated GFR > 60 Random Glucose 129 H Calcium 9.6 Phosphorus 3.1 Magnesium 2.0 Assessment and Plan (1) Acute deep vein thrombosis (DVT) of left tibial vein: Status: Acute (2) Bipolar 1 disorder: Status: Acute Plan 65yo F admitted to inpatient psychiatry;s/p L TKA 08/09/21 who developed a LLE DVT diagnosed 09/05/21 treated with apixaban initially, but then refused PO intake switched to enoxaparin but then developed a rash;hospitalists consulted for management of DVT + concern for dehydration # LLE DVT - fondaparinux 7.5 mg SQ daily started 09/16/21; change to apixaban 5 mg bid once taking PO # poor PO intake - monitor electrolytes + physical exam periodically for signs of dehydration; at this point, there are none and she is eating ice cream # catatonia - management as per Psychiatry Quality Stroke Does the patient have a stroke diagnosis?: No VTE Prior VTE?: No VTE Risk Level:: Medical - low VTE Device Contraindication: Patient Refused VTE Drug Contraindication: Patient Refused
[2021-10-02] MEDS: Haloperidol Lactate 5 MG/ML VIAL 7.5 MG IM ×2 (10:28→22:05)
[2021-10-02] MEDS: LORazepam 2 MG/ML VIAL IM ×2 (10:29→20:48)
[2021-10-02] MEDS: Fondaparinux Sodium 7.5 MG/0.6 ML SYRINGE SUBCUT (11:40)
--- NOTE | 2021-10-02 14:52 | PC.NURSE ---
Patient ate full lunch, drank 120 oz fluids.
[2021-10-02 16:00] VITALS: BP 111/81; PULSE 118; RESP 18; O2SAT 96
--- NOTE | 2021-10-02 16:53 | HO.PSYCHPN ---
Subjective Subjective Date of Service: 10/02/21 Reason For Visit: Psychosis Interim History: pt found lying in her bed, easily rousable. addresses MD as dawna, despite his informing her of his identity and relationship to her. she tells MD to go away. MD does, but not before encouraging PO nutrition and medication. per staff, continues to refuse PO medication, getting IMs. ate some pudding yesterday. VS WNL. Mental Status Exam Mental Status Exam Narrative: Pt awake and alert. She is in hospital attire, unable to collaborate in her care, excessive eye contact. disorganized thoughts. mistrustful, delusional. affect constricted, irritable and non-labile. no SI/HI/AVH expressed. Diagnostics Vital Signs (24Hr): Vital Signs - 24 hr 10/01/21 21:59 10/02/21 01:36 10/02/21 04:10 Temperature 96.7 F L Pulse Rate 93 Respiratory Rate 14 14 14 Blood Pressure 131/63 Pulse Oximetry 10/02/21 09:00 Temperature 97.8 F Pulse Rate 93 Respiratory Rate 20 Blood Pressure 113/62 Pulse Oximetry 95 BMI result Body Mass Index 20.9 Labs Results: 09/14/21 07:24 10/01/21 12:25 Labs: Laboratory Results - last 48 hr 10/01/21 12:25 Sodium 135 Potassium 3.8 Chloride 98 Carbon Dioxide 27 Anion Gap 14 BUN 9 Creatinine 0.77 Estim Creat Clear Calc 68.3 Estimated GFR > 60 Random Glucose 129 H Calcium 9.6 Phosphorus 3.1 Magnesium 2.0 Imaging Radiology Impressions: [facility] Impressions Head CT 09/13/21 12:37 IMPRESSION: No acute intracranial findings. Medications Medications Current Medications Acetaminophen (Acetaminophen 325 Mg Tablet) 650 mg PO Q6H PRN PRN Reason: Fever Or Pain Al Hydroxide/Mg Hydroxide (Magnesium Hydrox/Alum Hydrox 30 Ml Oral.Susp) 30 ml PO Q6H PRN PRN Reason: Heartburn/Nausea Calcium Carbonate/Cholecalciferol (Calcium + Vitamin D 250 Mg Tablet) 250 mg PO DAILY [facility] Last Admin: 10/02/21 09:08 Dose: Not Given Documented by: Docusate Sodium (Docusate Sodium 100 Mg Capsule) 100 mg PO BID [facility] Last Admin: 10/02/21 09:08 Dose: Not Given Documented by: Fluticasone Propionate (Fluticasone Propionate Nasal 16 Gm [place]) 1 spray NOSTRIL-B DAILY PRN PRN Reason: Allergy Symptoms Fondaparinux (Fondaparinux Sodium 7.5 Mg/0.6 Ml Syringe) 7.5 mg SUBCUT Q24H [facility] Last Admin: 10/02/21 11:40 Dose: 7.5 mg Documented by: Gabapentin (Gabapentin 100 Mg Capsule) 200 mg PO TID [facility] Last Admin: 10/02/21 15:44 Dose: Not Given Documented by: Haloperidol Lactate (Haloperidol Lactate 5 Mg/Ml Vial) 7.5 mg IM BID PRN PRN Reason: refusal of PO Seroquel Last Admin: 10/02/21 10:28 Dose: 7.5 mg Documented by: Hydrocortisone (Hydrocortisone 1 % Cream 28.35 Gm Tube) 1 appl TOPICAL BID PRN PRN Reason: rash Lactulose (Lactulose 20 Gm/30 Ml Solution) 10 gm PO BID PRN PRN Reason: constipation Loratadine (Loratadine 10 Mg Tablet) 10 mg PO DAILY [facility] Last Admin: 10/02/21 09:08 Dose: Not Given Documented by: Lorazepam (Lorazepam 2 Mg/Ml Vial) 2 mg IM BID PRN PRN Reason: Refusal Of PO Ativan Last Admin: 10/02/21 10:29 Dose: 2 mg Documented by: Lorazepam (Lorazepam 1 Mg Tablet) 1 mg PO TID [facility] Last Admin: 10/02/21 15:44 Dose: Not Given Documented by: Magnesium Hydroxide (Milk Of Magnesia 30 Ml Oral.Susp) 30 ml PO DAILY PRN PRN Reason: Constipation Melatonin (Melatonin 3 Mg Tablet) 9 mg PO BEDTIME [facility] Last Admin: 10/01/21 22:11 Dose: Not Given Documented by: Multivitamins/Vitamin C (Multivitamin Tablet) 1 tab PO DAILY [facility] Last Admin: 10/02/21 09:28 Dose: Not Given Documented by: Nicotine Polacrilex (Nicotine Polacrilex Lozenge 2 Mg Loz[place]) 2 mg BUCCAL Q1H PRN PRN Reason: Nicotine Cravings Omeprazole (Omeprazole 20 Mg Capsule.Dr) 20 mg PO BID@0630,1630 [facility] Last Admin: 10/02/21 09:08 Dose: Not Given Documented by: Oxycodone HCl (Oxycodone Hcl Er 10 Mg Tab.Er.12h) 5 mg PO Q12H PRN PRN Reason: right foot/leg pain Quetiapine Fumarate (Quetiapine Fumarate 100 Mg Tablet) 100 mg PO BEDTIME PRN PRN Reason: Insomnia Quetiapine Fumarate (Quetiapine Fumarate 50 Mg Tablet) 50 mg PO Q4H PRN PRN Reason: anxiety Quetiapine Fumarate (Quetiapine Fumarate 200 Mg Tablet) 200 mg PO TID [facility] Last Admin: 10/02/21 15:44 Dose: Not Given Documented by: Trazodone HCl (Trazodone Hcl 50 Mg Tablet) 50 mg PO BEDTIME PRN PRN Reason: Insomnia Allergies Allergies Allergy/AdvReac Type Severity Reaction Status Date / Time bee pollen Allergy Severe Anaphylaxis Verified 08/25/21 12:46 levofloxacin [From Levaquin] Allergy Severe Itching Verified 08/25/21 12:46 enoxaparin [From Lovenox] Allergy Intermediate Rash Verified 09/12/21 13:58 Penicillins Allergy Unknown Unknown Verified 08/25/21 12:46 Assessment & Plan Assessment & Plan (1) Acute deep vein thrombosis (DVT) of left tibial vein: Status: Acute Code(s): I82.442 - Acute embolism and thrombosis of left tibial vein Assessment and Plan: 65yo F admitted to inpatient psychiatry;s/p L TKA 08/09/21 who developed a LLE DVT diagnosed 09/05/21 treated with apixaban initially, but then refused PO intake switched to enoxaparin but then developed a rash;hospitalists consulted for management of DVT + concern for dehydration # LLE DVT - fondaparinux 7.5 mg SQ daily started 09/16/21; change to apixaban 5 mg bid once taking PO # poor PO intake - monitor electrolytes + physical exam periodically for signs of dehydration; at this point, there are none and she is eating ice cream # catatonia - management as per Psychiatry (2) Bipolar 1 disorder: Status: Acute Code(s): F31.9 - Bipolar disorder, unspecified Assessment and Plan: ativan 1 mg TID for recent catatonia.? continue the medication to reduce anxiety/paranoia/mixed lucrecia for now. give usual home meds except for the following: decrease oxycontin to 5 mg each and make PRN. fondaparinux 7.5 mg SQ daily for clot prophylaxis. hospitalist to review medical circumstance regularly.? hospitalist input and involvement appreciated. committed and medications ordered by court 09/20. haldol and ativan IM back-up for med refusal. continues to require regular IMs as of 09/30 due to refusing PO medications. haldol IM back-up increased from 5 mg BID PRN to 7.5 mg BID PRN as of 09/28. ativan back-up increased from 1 mg to 2 mg 09/30. labs 09/28 reassuring re kidney fxn. I spent ___15___ minutes with the patient and/or on the patient floor today, greater than?50% of which was spent counseling/coordinating care. Reason for contiued inpatient stay Substantial Risk for: harm to self, inability to function and rapid decompensation
--- NOTE | 2021-10-02 18:23 | PC.NURSE ---
Patient offered shower, but she declined this shift.
[2021-10-02 20:00] VITALS: BP 124/80; PULSE 103; RESP 18; TEMP 36.6; O2SAT 96
[2021-10-02] MEDS: Docusate Sodium 100 MG CAPSULE PO (20:36)
[2021-10-02] MEDS: LORazepam 1 MG TABLET PO (20:36)
[2021-10-03] VITALS: RESP 16
[2021-10-03 04:00] VITALS: RESP 16
[2021-10-03 08:00] VITALS: BP 116/58; PULSE 92; RESP 16; TEMP 36.6; O2SAT 96
--- NOTE | 2021-10-03 09:56 | HO.PM.IMPN ---
Subjective Subjective Date of Service: 10/03/21 Interval History: Still very withdrawn. The only thing she says to me is Horrible in response to all of my inquiries. Taking some liquids PO. Refusing pills still. Review of Systems Review of Systems: Yes Unobtainable due to mental status Physical Exam Vital Signs: Vital Signs: Last Vital Signs Temp 97.9 F 10/02/21 20:00 Pulse 103 H 10/02/21 20:00 Resp 16 10/03/21 04:00 BP 124/80 10/02/21 20:00 Pulse Ox 96 10/02/21 20:00 BMI result Body Mass Index 20.9 Gen: restricted affect Lungs: clear to auscultation bilaterally Heart: regular rate and rhythm, no murmurs Abd: soft, non-tender, non-distended Ext: no swelling in legs Skin: no rash Psych: guarded Objective Data Active Medications Acetaminophen (Acetaminophen 325 Mg Tablet) 650 mg PO Q6H PRN PRN Reason: Fever Or Pain Al Hydroxide/Mg Hydroxide (Magnesium Hydrox/Alum Hydrox 30 Ml Oral.Susp) 30 ml PO Q6H PRN PRN Reason: Heartburn/Nausea Calcium Carbonate/Cholecalciferol (Calcium + Vitamin D 250 Mg Tablet) 250 mg PO DAILY [facility] Last Admin: 10/02/21 09:08 Dose: Not Given Documented by: KOBY Non-Admin Reason: Patient Refused Docusate Sodium (Docusate Sodium 100 Mg Capsule) 100 mg PO BID [facility] Last Admin: 10/02/21 20:36 Dose: 100 mg Documented by: RAFY Fluticasone Propionate (Fluticasone Propionate Nasal 16 Gm [place]) 1 spray NOSTRIL-B DAILY PRN PRN Reason: Allergy Symptoms Fondaparinux (Fondaparinux Sodium 7.5 Mg/0.6 Ml Syringe) 7.5 mg SUBCUT Q24H [facility] Last Admin: 10/02/21 11:40 Dose: 7.5 mg Documented by: KOBY Gabapentin (Gabapentin 100 Mg Capsule) 200 mg PO TID [facility] Last Admin: 10/02/21 20:52 Dose: Not Given Documented by: RAFY Non-Admin Reason: Patient Refused Haloperidol Lactate (Haloperidol Lactate 5 Mg/Ml Vial) 7.5 mg IM BID PRN PRN Reason: refusal of PO Seroquel Last Admin: 10/02/21 22:05 Dose: 7.5 mg Documented by: RAFY Hydrocortisone (Hydrocortisone 1 % Cream 28.35 Gm Tube) 1 appl TOPICAL BID PRN PRN Reason: rash Lactulose (Lactulose 20 Gm/30 Ml Solution) 10 gm PO BID PRN PRN Reason: constipation Loratadine (Loratadine 10 Mg Tablet) 10 mg PO DAILY [facility] Last Admin: 10/02/21 09:08 Dose: Not Given Documented by: KOBY Non-Admin Reason: Patient Refused Lorazepam (Lorazepam 2 Mg/Ml Vial) 2 mg IM BID PRN PRN Reason: Refusal Of PO Ativan Last Admin: 10/02/21 20:48 Dose: 2 mg Documented by: RAFY Lorazepam (Lorazepam 1 Mg Tablet) 1 mg PO TID [facility] Last Admin: 10/02/21 20:36 Dose: 1 mg Documented by: RAFY Magnesium Hydroxide (Milk Of Magnesia 30 Ml Oral.Susp) 30 ml PO DAILY PRN PRN Reason: Constipation Melatonin (Melatonin 3 Mg Tablet) 9 mg PO BEDTIME [facility] Last Admin: 10/02/21 20:52 Dose: Not Given Documented by: RAFY Non-Admin Reason: Patient Refused Multivitamins/Vitamin C (Multivitamin Tablet) 1 tab PO DAILY [facility] Last Admin: 10/02/21 09:28 Dose: Not Given Documented by: KOBY Non-Admin Reason: Patient Refused Nicotine Polacrilex (Nicotine Polacrilex Lozenge 2 Mg Lozenge) 2 mg BUCCAL Q1H PRN PRN Reason: Nicotine Cravings Omeprazole (Omeprazole 20 Mg Capsule.Dr) 20 mg PO BID@0630,1630 [facility] Last Admin: 10/02/21 17:50 Dose: Not Given Documented by: KOBY Non-Admin Reason: Patient Refused Oxycodone HCl (Oxycodone Hcl Er 10 Mg Tab.Er.12h) 5 mg PO Q12H PRN PRN Reason: right foot/leg pain Quetiapine Fumarate (Quetiapine Fumarate 100 Mg Tablet) 100 mg PO BEDTIME PRN PRN Reason: Insomnia Quetiapine Fumarate (Quetiapine Fumarate 50 Mg Tablet) 50 mg PO Q4H PRN PRN Reason: anxiety Quetiapine Fumarate (Quetiapine Fumarate 200 Mg Tablet) 200 mg PO TID [facility] Last Admin: 10/02/21 20:52 Dose: Not Given Documented by: RAYF Non-Admin Reason: Patient Refused Trazodone HCl (Trazodone Hcl 50 Mg Tablet) 50 mg PO BEDTIME PRN PRN Reason: Insomnia Labs CBC & Chem 7: 09/14/21 07:24 10/01/21 12:25 Assessment and Plan (1) Acute deep vein thrombosis (DVT) of left tibial vein: Status: Acute (2) Bipolar 1 disorder: Status: Acute Plan 65yo F admitted to inpatient psychiatry;s/p L TKA 08/09/21 who developed a LLE DVT diagnosed 09/05/21 treated with apixaban initially, but then refused PO intake switched to enoxaparin but then developed a rash;hospitalists consulted for management of DVT + concern for dehydration # LLE DVT - fondaparinux 7.5 mg SQ daily started 09/16/21; change to apixaban 5 mg bid once taking PO # poor PO intake - monitor electrolytes + physical exam periodically for signs of dehydration; at this point, there are none # catatonia - management as per Psychiatry Quality Stroke Does the patient have a stroke diagnosis?: No VTE Prior VTE?: No VTE Risk Level:: Medical - low VTE Device Contraindication: Patient Refused VTE Drug Contraindication: Patient Refused
[2021-10-03] MEDS: Fondaparinux Sodium 7.5 MG/0.6 ML SYRINGE SUBCUT (10:27)
[2021-10-03] MEDS: QUEtiapine Fumarate 200 MG TABLET PO ×2 (12:16→21:30)
[2021-10-03] MEDS: LORazepam 1 MG TABLET PO ×2 (12:16→21:30)
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
--- NOTE | 2021-10-03 15:22 | MHC.CLN ---
F/U 1:1 AID PROVIDED INFORMATION ABOUT INTAKE. APPEARS TO BE EATING A LITTLE BETTER, DRINKS WATER/TAKE ICE CHIPS. FEEDS SELF. HAS NOT BEEN TAKING ENSURE SUPPLEMENT. DISCONTINUE ENSURE TID. DIET CONSISTENCY CHANGED 09/30 TO NDD3 FROM REGULAR CONSISTENCY. CONTINUE TO FOLLOW LABS AND INTAKE.
[2021-10-03 20:00] VITALS: BP 106/60; PULSE 90; RESP 16; TEMP 36.2; O2SAT 95
[2021-10-03] MEDS: Gabapentin 100 MG CAPSULE 200 MG PO (21:29)
[2021-10-03] MEDS: Melatonin 3 MG TABLET 9 MG PO (21:29)
[2021-10-03] MEDS: Docusate Sodium 100 MG CAPSULE PO (21:30)
[2021-10-04] VITALS: RESP 16
[2021-10-04 04:00] VITALS: RESP 16
--- NOTE | 2021-10-04 07:31 | P.PNIM_ITS ---
Subjective Subjective Date of Service: 10/04/21 Interval History: guarded, minimally cooperative with histoy/exam Review of Systems Review of Systems: Yes Unobtainable due to mental status Physical Exam Vital Signs: Vital Signs: Last Vital Signs Temp 97.2 F 10/03/21 20:00 Pulse 90 10/03/21 20:00 Resp 16 10/04/21 04:00 BP 106/60 10/03/21 20:00 Pulse Ox 95 10/03/21 20:00 BMI result Body Mass Index 20.9 Gen: restricted affect Lungs: clear to auscultation bilaterally Heart: regular rate and rhythm, no murmurs Abd: soft, non-tender, non-distended Ext: no swelling in legs Skin: no rash Psych: guarded Objective Data Active Medications Acetaminophen (Acetaminophen 325 Mg Tablet) 650 mg PO Q6H PRN PRN Reason: Fever Or Pain Al Hydroxide/Mg Hydroxide (Magnesium Hydrox/Alum Hydrox 30 Ml Oral.Susp) 30 ml PO Q6H PRN PRN Reason: Heartburn/Nausea Calcium Carbonate/Cholecalciferol (Calcium + Vitamin D 250 Mg Tablet) 250 mg PO DAILY [facility] Last Admin: 10/03/21 11:14 Dose: Not Given Documented by: MICHOACANO Non-Admin Reason: Patient Refused Docusate Sodium (Docusate Sodium 100 Mg Capsule) 100 mg PO BID [facility] Last Admin: 10/03/21 21:30 Dose: 100 mg Documented by: RAFY Fluticasone Propionate (Fluticasone Propionate Nasal 16 Gm [place]) 1 spray NOSTRIL-B DAILY PRN PRN Reason: Allergy Symptoms Fondaparinux (Fondaparinux Sodium 7.5 Mg/0.6 Ml Syringe) 7.5 mg SUBCUT Q24H [facility] Last Admin: 10/03/21 10:27 Dose: 7.5 mg Documented by: MICHOACANO Gabapentin (Gabapentin 100 Mg Capsule) 200 mg PO TID [facility] Last Admin: 10/03/21 21:29 Dose: 200 mg Documented by: RAFY Haloperidol Lactate (Haloperidol Lactate 5 Mg/Ml Vial) 7.5 mg IM BID PRN PRN Reason: refusal of PO Seroquel Last Admin: 10/02/21 22:05 Dose: 7.5 mg Documented by: RAFY Hydrocortisone (Hydrocortisone 1 % Cream 28.35 Gm Tube) 1 appl TOPICAL BID PRN PRN Reason: rash Lactulose (Lactulose 20 Gm/30 Ml Solution) 10 gm PO BID PRN PRN Reason: constipation Loratadine (Loratadine 10 Mg Tablet) 10 mg PO DAILY [facility] Last Admin: 10/03/21 11:14 Dose: Not Given Documented by: MICHOACANO Non-Admin Reason: Patient Refused Lorazepam (Lorazepam 2 Mg/Ml Vial) 2 mg IM BID PRN PRN Reason: Refusal Of PO Ativan Last Admin: 10/02/21 20:48 Dose: 2 mg Documented by: RAFY Lorazepam (Lorazepam 1 Mg Tablet) 1 mg PO TID [facility] Last Admin: 10/03/21 21:30 Dose: 1 mg Documented by: RAFY Magnesium Hydroxide (Milk Of Magnesia 30 Ml Oral.Susp) 30 ml PO DAILY PRN PRN Reason: Constipation Melatonin (Melatonin 3 Mg Tablet) 9 mg PO BEDTIME [facility] Last Admin: 10/03/21 21:29 Dose: 9 mg Documented by: RAFY Multivitamins/Vitamin C (Multivitamin Tablet) 1 tab PO DAILY [facility] Last Admin: 10/03/21 11:14 Dose: Not Given Documented by: MICHOACANO Non-Admin Reason: Patient Refused Nicotine Polacrilex (Nicotine Polacrilex Lozenge 2 Mg Lozenge) 2 mg BUCCAL Q1H PRN PRN Reason: Nicotine Cravings Omeprazole (Omeprazole 20 Mg Capsule.Dr) 20 mg PO BID@0630,1630 [facility] Last Admin: 10/03/21 18:08 Dose: Not Given Documented by: MICHOACANO Non-Admin Reason: Patient Refused Oxycodone HCl (Oxycodone Hcl Er 10 Mg Tab.Er.12h) 5 mg PO Q12H PRN PRN Reason: right foot/leg pain Quetiapine Fumarate (Quetiapine Fumarate 100 Mg Tablet) 100 mg PO BEDTIME PRN PRN Reason: Insomnia Quetiapine Fumarate (Quetiapine Fumarate 50 Mg Tablet) 50 mg PO Q4H PRN PRN Reason: anxiety Quetiapine Fumarate (Quetiapine Fumarate 200 Mg Tablet) 200 mg PO TID [facility] Last Admin: 10/03/21 21:30 Dose: 200 mg Documented by: RAFY Trazodone HCl (Trazodone Hcl 50 Mg Tablet) 50 mg PO BEDTIME PRN PRN Reason: Insomnia Labs CBC & Chem 7: 09/14/21 07:24 10/01/21 12:25 Assessment and Plan (1) Acute deep vein thrombosis (DVT) of left tibial vein: Status: Acute (2) Bipolar 1 disorder: Status: Acute Plan 65yo F admitted to inpatient psychiatry;s/p L TKA 08/09/21 who developed a LLE DVT diagnosed 09/05/21 treated with apixaban initially, but then refused PO intake switched to enoxaparin but then developed a rash;hospitalists consulted for management of DVT + concern for dehydration # LLE DVT - fondaparinux 7.5 mg SQ daily started 09/16/21; change to apixaban 5 mg bid once taking PO # poor PO intake - monitor electrolytes + physical exam periodically for signs of dehydration; at this point, there are none; will check electrolytes tomorrow am # catatonia - management as per Psychiatry Quality Stroke Does the patient have a stroke diagnosis?: No VTE Prior VTE?: No VTE Risk Level:: Medical - low VTE Device Contraindication: Patient Refused VTE Drug Contraindication: Patient Refused
[2021-10-04] MEDS: LORazepam 2 MG/ML VIAL IM ×2 (11:17→21:56)
[2021-10-04] MEDS: Haloperidol Lactate 5 MG/ML VIAL 7.5 MG IM ×2 (11:19→21:55)
[2021-10-04] MEDS: Fondaparinux Sodium 7.5 MG/0.6 ML SYRINGE SUBCUT (11:22)
--- NOTE | 2021-10-04 11:30 | PC.NURSE ---
Patient refused oral medication. IM medication administered per Salomon order.
[2021-10-04 11:50] VITALS: BP 117/63; PULSE 98; RESP 16; TEMP 36.9; O2SAT 98
[2021-10-04 12:38] VITALS: BP 119/79; PULSE 120; RESP 17; TEMP 36.7; O2SAT 96
--- NOTE | 2021-10-04 12:51 | P.PNPSI_ITS ---
Subjective Subjective Date of Service: 10/04/21 Reason For Visit: Psychosis Interim History: pt found lying in her bed, awake, staring forward. MD asks how she is doing, and she responds, fine. MD attempts further interaction, and pt's only response is, get out of my sight, dawna, which she repeats a couple of times. MD excuses himself from the room. per staff, isolative, ate 50% of breakfast and lunch. c/o depression. said to staff, i don't wanna be knifed, like you. took both AM and HS meds by mouth yesterday. slept through the night. Mental Status Exam Mental Status Exam Narrative: Pt awake and alert. She is in hospital attire, unable to collaborate in her care, blank staring and reduced eye contact. disorganized thoughts. mistrustful, delusional. affect constricted, not irritable and non-labile. no SI/HI/AVH expressed. Diagnostics Vital Signs (24Hr): Vital Signs - 24 hr 10/03/21 20:00 10/04/21 00:00 10/04/21 04:00 Temperature 97.2 F Pulse Rate 90 Respiratory Rate 16 16 16 Blood Pressure 106/60 Pulse Oximetry 95 10/04/21 11:50 10/04/21 12:38 Temperature 98.4 F 98.1 F Pulse Rate 98 120 H Respiratory Rate 16 17 Blood Pressure 117/63 119/79 Pulse Oximetry 98 96 BMI result Body Mass Index 20.9 Labs Results: 09/14/21 07:24 10/01/21 12:25 Imaging Radiology Impressions: ITS Impressions Head CT 09/13/21 12:37 IMPRESSION: No acute intracranial findings. Medications Medications Current Medications Acetaminophen (Acetaminophen 325 Mg Tablet) 650 mg PO Q6H PRN PRN Reason: Fever Or Pain Al Hydroxide/Mg Hydroxide (Magnesium Hydrox/Alum Hydrox 30 Ml Oral.Susp) 30 ml PO Q6H PRN PRN Reason: Heartburn/Nausea Calcium Carbonate/Cholecalciferol (Calcium + Vitamin D 250 Mg Tablet) 250 mg PO DAILY [facility] Last Admin: 10/04/21 10:26 Dose: Not Given Documented by: Docusate Sodium (Docusate Sodium 100 Mg Capsule) 100 mg PO BID [facility] Last Admin: 10/04/21 10:26 Dose: Not Given Documented by: Fluticasone Propionate (Fluticasone Propionate Nasal 16 Gm [place]) 1 spray NOSTRIL-B DAILY PRN PRN Reason: Allergy Symptoms Fondaparinux (Fondaparinux Sodium 7.5 Mg/0.6 Ml Syringe) 7.5 mg SUBCUT Q24H [facility] Last Admin: 10/04/21 11:22 Dose: 7.5 mg Documented by: Gabapentin (Gabapentin 100 Mg Capsule) 200 mg PO TID [facility] Last Admin: 10/04/21 10:26 Dose: Not Given Documented by: Haloperidol Lactate (Haloperidol Lactate 5 Mg/Ml Vial) 7.5 mg IM BID PRN PRN Reason: refusal of PO Seroquel Last Admin: 10/04/21 11:19 Dose: 7.5 mg Documented by: Hydrocortisone (Hydrocortisone 1 % Cream 28.35 Gm Tube) 1 appl TOPICAL BID PRN PRN Reason: rash Lactulose (Lactulose 20 Gm/30 Ml Solution) 10 gm PO BID PRN PRN Reason: constipation Loratadine (Loratadine 10 Mg Tablet) 10 mg PO DAILY [facility] Last Admin: 10/04/21 10:26 Dose: Not Given Documented by: Lorazepam (Lorazepam 2 Mg/Ml Vial) 2 mg IM BID PRN PRN Reason: Refusal Of PO Ativan Last Admin: 10/04/21 11:17 Dose: 2 mg Documented by: Lorazepam (Lorazepam 1 Mg Tablet) 1 mg PO TID [facility] Last Admin: 10/04/21 11:29 Dose: Not Given Documented by: Magnesium Hydroxide (Milk Of Magnesia 30 Ml Oral.Susp) 30 ml PO DAILY PRN PRN Reason: Constipation Melatonin (Melatonin 3 Mg Tablet) 9 mg PO BEDTIME [facility] Last Admin: 10/03/21 21:29 Dose: 9 mg Documented by: Multivitamins/Vitamin C (Multivitamin Tablet) 1 tab PO DAILY [facility] Last Admin: 10/04/21 10:26 Dose: Not Given Documented by: Nicotine Polacrilex (Nicotine Polacrilex Lozenge 2 Mg Lozenge) 2 mg BUCCAL Q1H PRN PRN Reason: Nicotine Cravings Omeprazole (Omeprazole 20 Mg Capsule.Dr) 20 mg PO BID@0630,1630 [facility] Last Admin: 10/04/21 10:25 Dose: Not Given Documented by: Quetiapine Fumarate (Quetiapine Fumarate 100 Mg Tablet) 100 mg PO BEDTIME PRN PRN Reason: Insomnia Quetiapine Fumarate (Quetiapine Fumarate 50 Mg Tablet) 50 mg PO Q4H PRN PRN Reason: anxiety Quetiapine Fumarate (Quetiapine Fumarate 200 Mg Tablet) 200 mg PO TID [facility] Last Admin: 10/04/21 11:29 Dose: Not Given Documented by: Trazodone HCl (Trazodone Hcl 50 Mg Tablet) 50 mg PO BEDTIME PRN PRN Reason: Insomnia Allergies Allergies Allergy/AdvReac Type Severity Reaction Status Date / Time bee pollen Allergy Severe Anaphylaxis Verified 08/25/21 12:46 levofloxacin [From Levaquin] Allergy Severe Itching Verified 08/25/21 12:46 enoxaparin [From Lovenox] Allergy Intermediate Rash Verified 09/12/21 13:58 Penicillins Allergy Unknown Unknown Verified 08/25/21 12:46 Assessment & Plan Assessment & Plan (1) Acute deep vein thrombosis (DVT) of left tibial vein: Status: Acute Code(s): I82.442 - Acute embolism and thrombosis of left tibial vein Assessment and Plan: 65yo F admitted to inpatient psychiatry;s/p L TKA 08/09/21 who developed a LLE DVT diagnosed 09/05/21 treated with apixaban initially, but then refused PO intake switched to enoxaparin but then developed a rash;hospitalists consulted for management of DVT + concern for dehydration # LLE DVT - fondaparinux 7.5 mg SQ daily started 09/16/21; change to apixaban 5 mg bid once taking PO # poor PO intake - monitor electrolytes + physical exam periodically for signs of dehydration; at this point, there are none; will check electrolytes tomorrow am # catatonia - management as per Psychiatry (2) Bipolar 1 disorder: Status: Acute Code(s): F31.9 - Bipolar disorder, unspecified Plan ativan 1 mg TID for recent catatonia.? continue the medication to reduce anxiety/paranoia/mixed lucrecia for now. give usual home meds except for the following: decrease oxycontin to 5 mg each and make PRN. fondaparinux 7.5 mg SQ daily for clot prophylaxis. hospitalist to review medical circumstance regularly.? hospitalist input and involvement appreciated. committed and medications ordered by court 09/20. haldol and ativan IM back-up for med refusal. continues to require regular IMs as of 10/03 due to refusing PO medications. haldol IM back-up increased from 5 mg BID PRN to 7.5 mg BID PRN as of 09/28. ativan back-up increased from 1 mg to 2 mg 09/30. labs 09/28 reassuring re kidney fxn. I spent ___15___ minutes with the patient and/or on the patient floor today, greater than?50% of which was spent counseling/coordinating care. Reason for contiued inpatient stay Substantial Risk for: inability to function and rapid decompensation
[2021-10-04 16:00] VITALS: BP 108/74; PULSE 103; RESP 16; TEMP 36.4; O2SAT 97
[2021-10-04 21:58] VITALS: BP 112/79; PULSE 103; TEMP 36.4; O2SAT 97
[2021-10-05] VITALS: RESP 14
[2021-10-05 04:00] VITALS: RESP 14
[2021-10-05 08:00] VITALS: BP 117/72; PULSE 116; RESP 16; TEMP 36.7; O2SAT 97
[2021-10-05 09:26] LABS: Blood Urea Nitrogen 9 mg/dL (9-16); Estimated Glomerular Filt Rate > 60; Glucose Random 85 mg/dL (60-115); Magnesium 1.9 mg/dL (1.6-2.6); Phosphorus 2.1 mg/dL (2.7-4.5)
[2021-10-05 09:40] LABS: Anion Gap 13 (12-20); Calcium 8.9 mg/dL (8.4-10.2); Carbon Dioxide 27 mmol/L (22-29); Chloride 98 mmol/L (96-108); Potassium 3.8 mmol/L (3.3-5.1); Sodium 134 mmol/L (135-145)
[2021-10-05] MEDS: Haloperidol Lactate 5 MG/ML VIAL 7.5 MG IM (10:34)
[2021-10-05] MEDS: LORazepam 2 MG/ML VIAL IM (10:34)
[2021-10-05] MEDS: Fondaparinux Sodium 7.5 MG/0.6 ML SYRINGE SUBCUT (10:40)
[2021-10-05] MEDS: QUEtiapine Fumarate 200 MG TABLET PO ×2 (14:04→21:30)
[2021-10-05] MEDS: LORazepam 1 MG TABLET PO ×2 (14:04→21:30)
--- NOTE | 2021-10-05 14:08 | PC.NURSE ---
Patient approached [facility] stating she was there to take her meds. Accepted Seroquel and Ativan PO. Refused Gabapentin PO.
--- NOTE | 2021-10-05 15:58 | MHC.CLN ---
F/U PATIENT ASLEEP AT VISIT. 1:1 AID REPORTS THAT PATIENT WILL EAT ICE CREAM AND GINGERALE. ADDING A MAGIC CUP ON EACH MEAL TRAY. PROVIDES ADDITIONAL 870 KCAL, 27 G PROTEIN. WEIGHT ON 09/08=71.668 KG. WEIGHT ON 09/30=58.693 KG. SHOWS SIGNIFICANT WEIGHT LOSS 18% X LESS THAN ONE MONTH. FOLLOW FOR INTAKE/ACCEPTANCE AND WEIGHTS.
--- NOTE | 2021-10-05 20:55 | HO.PSYCHPN ---
Subjective Subjective Date of Service: 10/05/21 Reason For Visit: Psychosis Interim History: Patient seen and discussed with team. I attempted to evaluate pt this afternoon, however she was found to be asleep with 1:1 in her room. At this time, sleep deemed more therapeutic. Per staff, pt remains unchanged, continues to refuse PO medication and require IM intervention. Pt continues to present as disorganized. Review of Systems Acute medical concerns: No Medical Review of Systems: unchanged Mental Status Exam Mental Status Exam Narrative: Pt is asleep.? She is in hospital attire, per staff pt continues to be unable to collaborate in her care, blank staring and reduced eye contact.? disorganized thoughts.? mistrustful, delusional.? affect constricted, not irritable and non-labile.? no SI/HI/AVH expressed. Diagnostics Vital Signs (24Hr): Vital Signs - 24 hr 10/05/21 08:00 10/05/21 21:34 10/06/21 00:00 Temperature 98.1 F 97.8 F Pulse Rate 116 H 86 Respiratory Rate 16 14 14 Blood Pressure 117/72 142/76 H Pulse Oximetry 97 94 BMI result Body Mass Index 20.9 Labs Results: 09/14/21 07:24 10/05/21 08:23 Labs: Laboratory Results - last 48 hr 10/05/21 08:23 Sodium 134 L Potassium 3.8 Chloride 98 Carbon Dioxide 27 Anion Gap 13 BUN 9 Creatinine 0.65 Estim Creat Clear Calc 81.0 Estimated GFR > 60 Random Glucose 85 Calcium 8.9 D Phosphorus 2.1 L Magnesium 1.9 Imaging Radiology Impressions: ITS Impressions Head CT 09/13/21 12:37 IMPRESSION: No acute intracranial findings. Medications Medications Current Medications Acetaminophen (Acetaminophen 325 Mg Tablet) 650 mg PO Q6H PRN PRN Reason: Fever Or Pain Al Hydroxide/Mg Hydroxide (Magnesium Hydrox/Alum Hydrox 30 Ml Oral.Susp) 30 ml PO Q6H PRN PRN Reason: Heartburn/Nausea Calcium Carbonate/Cholecalciferol (Calcium + Vitamin D 250 Mg Tablet) 250 mg PO DAILY [facility] Last Admin: 10/05/21 10:28 Dose: Not Given Documented by: Docusate Sodium (Docusate Sodium 100 Mg Capsule) 100 mg PO BID [facility] Last Admin: 10/05/21 21:36 Dose: Not Given Documented by: Fluticasone Propionate (Fluticasone Propionate Nasal 16 Gm [place]) 1 spray NOSTRIL-B DAILY PRN PRN Reason: Allergy Symptoms Fondaparinux (Fondaparinux Sodium 7.5 Mg/0.6 Ml Syringe) 7.5 mg SUBCUT Q24H [facility] Last Admin: 10/05/21 10:40 Dose: 7.5 mg Documented by: Gabapentin (Gabapentin 100 Mg Capsule) 200 mg PO TID [facility] Last Admin: 10/05/21 21:32 Dose: 200 mg Documented by: Haloperidol Lactate (Haloperidol Lactate 5 Mg/Ml Vial) 7.5 mg IM BID PRN PRN Reason: refusal of PO Seroquel Last Admin: 10/05/21 10:34 Dose: 7.5 mg Documented by: Hydrocortisone (Hydrocortisone 1 % Cream 28.35 Gm Tube) 1 appl TOPICAL BID PRN PRN Reason: rash Lactulose (Lactulose 20 Gm/30 Ml Solution) 10 gm PO BID PRN PRN Reason: constipation Loratadine (Loratadine 10 Mg Tablet) 10 mg PO DAILY [facility] Last Admin: 10/05/21 10:28 Dose: Not Given Documented by: Lorazepam (Lorazepam 2 Mg/Ml Vial) 2 mg IM BID PRN PRN Reason: Refusal Of PO Ativan Last Admin: 10/05/21 10:34 Dose: 2 mg Documented by: Lorazepam (Lorazepam 1 Mg Tablet) 1 mg PO TID [facility] Last Admin: 10/05/21 21:30 Dose: 1 mg Documented by: Magnesium Hydroxide (Milk Of Magnesia 30 Ml Oral.Susp) 30 ml PO DAILY PRN PRN Reason: Constipation Melatonin (Melatonin 3 Mg Tablet) 9 mg PO BEDTIME [facility] Last Admin: 10/05/21 21:36 Dose: Not Given Documented by: Multivitamins/Vitamin C (Multivitamin Tablet) 1 tab PO DAILY [facility] Last Admin: 10/05/21 10:29 Dose: Not Given Documented by: Nicotine Polacrilex (Nicotine Polacrilex Lozenge 2 Mg Lozenge) 2 mg BUCCAL Q1H PRN PRN Reason: Nicotine Cravings Omeprazole (Omeprazole 20 Mg Capsule.Dr) 20 mg PO BID@0630,1630 [facility] Last Admin: 10/05/21 16:47 Dose: Not Given Documented by: Quetiapine Fumarate (Quetiapine Fumarate 100 Mg Tablet) 100 mg PO BEDTIME PRN PRN Reason: Insomnia Quetiapine Fumarate (Quetiapine Fumarate 50 Mg Tablet) 50 mg PO Q4H PRN PRN Reason: anxiety Quetiapine Fumarate (Quetiapine Fumarate 200 Mg Tablet) 200 mg PO TID [facility] Last Admin: 10/05/21 21:30 Dose: 200 mg Documented by: Trazodone HCl (Trazodone Hcl 50 Mg Tablet) 50 mg PO BEDTIME PRN PRN Reason: Insomnia Allergies Allergies Allergy/AdvReac Type Severity Reaction Status Date / Time bee pollen Allergy Severe Anaphylaxis Verified 08/25/21 12:46 levofloxacin [From Levaquin] Allergy Severe Itching Verified 08/25/21 12:46 enoxaparin [From Lovenox] Allergy Intermediate Rash Verified 09/12/21 13:58 Penicillins Allergy Unknown Unknown Verified 08/25/21 12:46 Assessment & Plan Assessment & Plan (1) Acute deep vein thrombosis (DVT) of left tibial vein: Status: Acute Code(s): I82.442 - Acute embolism and thrombosis of left tibial vein Assessment and Plan: 65yo F admitted to inpatient psychiatry;s/p L TKA 08/09/21 who developed a LLE DVT diagnosed 09/05/21 treated with apixaban initially, but then refused PO intake switched to enoxaparin but then developed a rash;hospitalists consulted for management of DVT + concern for dehydration # LLE DVT - fondaparinux 7.5 mg SQ daily started 09/16/21; change to apixaban 5 mg bid once taking PO # poor PO intake - monitor electrolytes + physical exam periodically for signs of dehydration; at this point, there are none; will check electrolytes tomorrow am # catatonia - management as per Psychiatry (2) Bipolar 1 disorder: Status: Acute Code(s): F31.9 - Bipolar disorder, unspecified Plan ativan 1 mg TID for recent catatonia.? continue the medication to reduce anxiety/paranoia/mixed lucrecia for now. give usual home meds except for the following: decrease oxycontin to 5 mg each and make PRN. fondaparinux 7.5 mg SQ daily for clot prophylaxis. hospitalist to review medical circumstance regularly.? hospitalist input and involvement appreciated. committed and medications ordered by court 09/20. haldol and ativan IM back-up for med refusal. continues to require regular IMs as of 10/03 due to refusing PO medications. haldol IM back-up increased from 5 mg BID PRN to 7.5 mg BID PRN as of 09/28. ativan back-up increased from 1 mg to 2 mg 09/30. labs 09/28 reassuring re kidney fxn. I spent minutes with the patient and/or on the patient floor today, greater than?50% of which was spent counseling/coordinating care. Reason for contiued inpatient stay Substantial Risk for: inability to function, rapid decompensation and med/psych decompensation
[2021-10-05] MEDS: Gabapentin 100 MG CAPSULE 200 MG PO (21:32)
[2021-10-05 21:34] VITALS: BP 142/76; PULSE 86; RESP 14; TEMP 36.6; O2SAT 94
[2021-10-06] VITALS: RESP 14
[2021-10-06 09:24] VITALS: BP 109/71; PULSE 94; RESP 17; TEMP 36.7; O2SAT 96
[2021-10-06] MEDS: LORazepam 1 MG TABLET PO ×2 (09:52→18:57)
[2021-10-06] MEDS: QUEtiapine Fumarate 200 MG TABLET PO ×2 (09:52→18:56)
[2021-10-06 12:00] VITALS: RESP 17
--- NOTE | 2021-10-06 12:03 | P.PNPSI_ITS ---
Subjective Subjective Date of Service: 10/06/21 Reason For Visit: Psychosis Subjective Notes: Section 8 Interim History: Patient seen and discussed with team. Pt in bed, reports feeling tired and just wanting to sleep a little bit longer. MInimally cooperative, superficial, reports otherwise, she is doing fine. She denies SI/HI. Per nursing, increase intake, continues to report that she hears firing of guns on the unit. Medication Compliance: Yes Review of Systems Review of Systems Unremarkable Yes all other systems are reviewed and are negative, unobtainable due to endotracheal tube and Unobtainable due to mental status Constitutional: Reports no additional constitutional complaints, Denies body ache(s), Denies chills, Reports difficulty sleeping, Denies fever(s), Denies headache(s), Reports poor appetite and Denies weakness Eyes: Reports no additional eye complaints and Denies change in vision Reports system reviewed and no additional complaints, except as documented, Denies dizziness, Denies headache(s), Denies nasal congestion, Denies nasal discharge and Denies neck pain Cardiovascular: Reports no additional cardiovascular complaints, Denies chest pain, Denies leg edema and Denies dyspnea Respiratory: Reports no additional respiratory complaints, Denies cough and Denies dyspnea Gastrointestinal: Reports no additional gastrointestinal complaints, Denies abdominal pain, Denies diarrhea, Denies nausea and Denies vomiting Musculoskeletal: Reports no additional musculoskeletal complaints, Denies back pain, Denies arthralgias, Denies joint swelling, Denies neck pain, Denies numbn ess and Denies tingling Skin/Breast: Reports system reviewed and no additional complaints, except as docu and Denies rash Reports system reviewed and no additional complaints, except as documented, Denies Abnormal speech present, Denies dizziness, Denies headache(s), Denies n umbness, Denies tingling and Denies weakness Psychiatric: Reports anxiety, Reports depression, Denies visual hallucinations, Denies hallucinations, Denies homicidal ideation and Denies suicidal ideation Mental Status Exam Mental Status Exam Narrative: Pt is alert, but minimally engaging, poor eye contact.? She is in hospital attire, per staff pt continues to be unable to collaborate in her care, blank staring and reduced eye contact.? disorganized thoughts.? mistrustful, delusional.? affect constricted, not irritable and non-labile.? no SI/HI/AVH expressed. Patient Appearance: Disheveled Diagnostics Vital Signs (24Hr): Vital Signs - 24 hr 10/05/21 21:34 10/06/21 00:00 10/06/21 09:24 Temperature 97.8 F 98.1 F Pulse Rate 86 94 Respiratory Rate 14 14 17 Blood Pressure 142/76 H 109/71 Pulse Oximetry 94 96 BMI result Body Mass Index 20.9 Labs Results: 09/14/21 07:24 10/05/21 08:23 Labs: Laboratory Results - last 48 hr 10/05/21 08:23 Sodium 134 L Potassium 3.8 Chloride 98 Carbon Dioxide 27 Anion Gap 13 BUN 9 Creatinine 0.65 Estim Creat Clear Calc 81.0 Estimated GFR > 60 Random Glucose 85 Calcium 8.9 D Phosphorus 2.1 L Magnesium 1.9 Imaging Radiology Impressions: ITS Impressions Head CT 09/13/21 12:37 IMPRESSION: No acute intracranial findings. Medications Medications Current Medications Acetaminophen (Acetaminophen 325 Mg Tablet) 650 mg PO Q6H PRN PRN Reason: Fever Or Pain Al Hydroxide/Mg Hydroxide (Magnesium Hydrox/Alum Hydrox 30 Ml Oral.Susp) 30 ml PO Q6H PRN PRN Reason: Heartburn/Nausea Calcium Carbonate/Cholecalciferol (Calcium + Vitamin D 250 Mg Tablet) 250 mg PO DAILY [facility] Last Admin: 10/06/21 09:55 Dose: Not Given Documented by: Docusate Sodium (Docusate Sodium 100 Mg Capsule) 100 mg PO BID [facility] Last Admin: 10/06/21 10:11 Dose: Not Given Documented by: Fluticasone Propionate (Fluticasone Propionate Nasal 16 Gm [place]) 1 spray NOSTRIL-B DAILY PRN PRN Reason: Allergy Symptoms Fondaparinux (Fondaparinux Sodium 7.5 Mg/0.6 Ml Syringe) 7.5 mg SUBCUT Q24H [facility] Last Admin: 10/05/21 10:40 Dose: 7.5 mg Documented by: Gabapentin (Gabapentin 100 Mg Capsule) 200 mg PO TID [facility] Last Admin: 10/06/21 10:11 Dose: Not Given Documented by: Haloperidol Lactate (Haloperidol Lactate 5 Mg/Ml Vial) 7.5 mg IM BID PRN PRN Reason: refusal of PO Seroquel Last Admin: 10/05/21 10:34 Dose: 7.5 mg Documented by: Hydrocortisone (Hydrocortisone 1 % Cream 28.35 Gm Tube) 1 appl TOPICAL BID PRN PRN Reason: rash Lactulose (Lactulose 20 Gm/30 Ml Solution) 10 gm PO BID PRN PRN Reason: constipation Loratadine (Loratadine 10 Mg Tablet) 10 mg PO DAILY [facility] Last Admin: 10/06/21 10:12 Dose: Not Given Documented by: Lorazepam (Lorazepam 2 Mg/Ml Vial) 2 mg IM BID PRN PRN Reason[facility] Last Admin: 10/05/21 10:34 Dose: 2 mg Documented by: Lorazepam (Lorazepam 1 Mg Tablet) 1 mg PO TID [facility] Last Admin: 10/06/21 09:52 Dose: 1 mg Documented by: Magnesium Hydroxide (Milk Of Magnesia 30 Ml Oral.Susp) 30 ml PO DAILY PRN PRN Reason: Constipation Melatonin (Melatonin 3 Mg Tablet) 9 mg PO BEDTIME [facility] Last Admin: 10/05/21 21:36 Dose: Not Given Documented by: Multivitamins/Vitamin C (Multivitamin Tablet) 1 tab PO DAILY [facility] Last Admin: 10/06/21 10:12 Dose: Not Given Documented by: Nicotine Polacrilex (Nicotine Polacrilex Lozenge 2 Mg Lozenge) 2 mg BUCCAL Q1H PRN PRN Reason: Nicotine Cravings Omeprazole (Omeprazole 20 Mg Capsule.Dr) 20 mg PO BID@0630,1630 [facility] Last Admin: 10/06/21 09:55 Dose: Not Given Documented by: Quetiapine Fumarate (Quetiapine Fumarate 100 Mg Tablet) 100 mg PO BEDTIME PRN PRN Reason: Insomnia Quetiapine Fumarate (Quetiapine Fumarate 50 Mg Tablet) 50 mg PO Q4H PRN PRN Reason: anxiety Quetiapine Fumarate (Quetiapine Fumarate 200 Mg Tablet) 200 mg PO TID [facility] Last Admin: 10/06/21 09:52 Dose: 200 mg Documented by: Trazodone HCl (Trazodone Hcl 50 Mg Tablet) 50 mg PO BEDTIME PRN PRN Reason: Insomnia Allergies Allergies Allergy/AdvReac Type Severity Reaction Status Date / Time bee pollen Allergy Severe Anaphylaxis Verified 08/25/21 12:46 levofloxacin [From Levaquin] Allergy Severe Itching Verified 08/25/21 12:46 enoxaparin [From Lovenox] Allergy Intermediate Rash Verified 09/12/21 13:58 Penicillins Allergy Unknown Unknown Verified 08/25/21 12:46 Assessment & Plan Assessment & Plan (1) Acute deep vein thrombosis (DVT) of left tibial vein: Status: Acute Code(s): I82.442 - Acute embolism and thrombosis of left tibial vein Assessment and Plan: 65yo F admitted to inpatient psychiatry;s/p L TKA 08/09/21 who developed a LLE DVT diagnosed 09/05/21 treated with apixaban initially, but then refused PO intake switched to enoxaparin but then developed a rash;hospitalists consulted for management of DVT + concern for dehydration # LLE DVT - fondaparinux 7.5 mg SQ daily started 09/16/21; change to apixaban 5 mg bid once taking PO # poor PO intake - monitor electrolytes + physical exam periodically for signs of dehydration; at this point, there are none; will check electrolytes tomorrow am # catatonia - management as per Psychiatry (2) Bipolar 1 disorder: Status: Acute Code(s): F31.9 - Bipolar disorder, unspecified Plan ativan 1 mg TID for recent catatonia.? continue the medication to reduce anxiety/paranoia/mixed lucrecia for now. give usual home meds except for the following: decrease oxycontin to 5 mg each and make PRN. fondaparinux 7.5 mg SQ daily for clot prophylaxis. hospitalist to review medical circumstance regularly.? hospitalist input and involvement appreciated. committed and medications ordered by court 09/20. haldol and ativan IM back-up for med refusal. continues to require regular IMs as of 10/03 due to refusing PO medications. haldol IM back-up increased from 5 mg BID PRN to 7.5 mg BID PRN as of 09/28. ativan back-up increased from 1 mg to 2 mg 09/30. labs 09/28 reassuring re kidney fxn. 10/06- continue current medications. I spent ___25___ minutes with the patient and/or on the patient floor today, greater than?50% of which was spent counseling/coordinating care. Reason for contiued inpatient stay Substantial Risk for: inability to function
[2021-10-06] MEDS: Fondaparinux Sodium 7.5 MG/0.6 ML SYRINGE SUBCUT (12:31)
[2021-10-06 16:00] VITALS: PULSE 93; RESP 18; O2SAT 96
[2021-10-06 18:03] VITALS: BMI 21.8
[2021-10-06] MEDS: Docusate Sodium 100 MG CAPSULE PO (18:57)
[2021-10-06] MEDS: Gabapentin 100 MG CAPSULE 200 MG PO (18:57)
--- NOTE | 2021-10-06 18:59 | PC.NURSE ---
[facility] Seroquel, Ativan, Gabapentin and Collace administered early with provider permission per PT's request
[2021-10-06 19:02] VITALS: BP 103/76; PULSE 106; RESP 17; O2SAT 96
[2021-10-06 20:00] VITALS: RESP 16
[2021-10-07 00:20] VITALS: RESP 16
[2021-10-07 08:27] VITALS: BP 108/70; PULSE 97; RESP 16; TEMP 36.7; O2SAT 97
[2021-10-07] MEDS: Gabapentin 100 MG CAPSULE 200 MG PO (08:36)
[2021-10-07] MEDS: QUEtiapine Fumarate 200 MG TABLET PO ×2 (08:36→14:47)
[2021-10-07] MEDS: LORazepam 1 MG TABLET PO (08:36)
[2021-10-07 08:57] LABS: Alanine Aminotransferase 26 U/L (0-31); Albumin Level 2.9 g/dL (3.5-5.0); Alkaline Phosphatase 91 U/L (39-117); Anion Gap 11 (12-20); Aspartate Amino Transferase 25 U/L (5-31); Bilirubin Total 0.2 mg/dL (0.0-1.0); Blood Urea Nitrogen 9 mg/dL (9-16); Calcium 8.6 mg/dL (8.4-10.2); Carbon Dioxide 26 mmol/L (22-29); Chloride 102 mmol/L (96-108); Creatinine Clr Calc Pharmacy 88.7; Estimated Glomerular Filt Rate > 60; Glucose Random 96 mg/dL (60-115); Potassium 3.7 mmol/L (3.3-5.1); Sodium 135 mmol/L (135-145); Total Protein 4.9 g/dL (6.5-8.0)
--- NOTE | 2021-10-07 11:58 | P.PNPSI_ITS ---
Subjective Subjective Date of Service: 10/07/21 Reason For Visit: Psychosis Subjective Notes: Section 8 Interim History: Patient seen and discussed with team. Pt in bed, but more talkative and engaged today. Pt reports she continues to hear voices of different males telling her that her brother (and others) are trying to hurt her/kill her. When asked how she thinks her brother will hurt her, she states I don't know. Pt reports voices are less but continues to be distressing to the point that when asked if life is worth living, pt responds not hearing voices like this. Pt tearful talking about her dog. She hopes to go back home soon with her dog. She also reports she would be open to going to nursing facility. She denies any plan or intent to hurt herself while on the unit. Per nursing, eating more and more consistently. Medication Compliance: Yes Side effects from medications: No Review of Systems Review of Systems Unremarkable Yes all other systems are reviewed and are negative, unobtainable due to endotra cheal tube and Unobtainable due to mental status Constitutional: Reports no additional constitutional complaints, Denies body ache(s), Denies chills, Reports difficulty sleeping, Denies fever(s), Denies headache(s), Reports poor appetite and Denies weakness Eyes: Reports no additional eye complaints and Denies change in vision Reports system reviewed and no additional complaints, except as documented, Denies dizziness, Denies headache(s), Denies nasal congestion, Denies nasal discharge and Denies neck pain Cardiovascular: Reports no additional cardiovascular complaints, Denies chest pain, Denies leg edema and Denies dyspnea Respiratory: Reports no additional respiratory complaints, Denies cough and Denies dyspnea Gastrointestinal: Reports no additional gastrointestinal complaints, Denies abdominal pain, Denies diarrhea, Denies nausea and Denies vomiting Musculoskeletal: Reports no additional musculoskeletal complaints, Denies back pain, Denies arthralgias, Denies joint swelling, Denies neck pain, Denies numbness and Denies tingling Skin/Breast: Reports system reviewed and no additional complaints, except as docu and Denies rash Reports system reviewed and no additional complaints, except as documented, Denies Abnormal speech present, Denies dizziness, Denies headache(s), Denies numbness, Denies tingling and Denies weakness Psychiatric: Reports anxiety, Reports depression, Denies visual hallucinations, Denies hallucinations, Denies homicidal ideation and Denies suicidal ideation Mental Status Exam Mental Status Exam Narrative: Appearance: wearing hospital gown with causal sweater, improved hygiene, in NAD Behavior: fairly cooperative Psychomotor: no agitation or retardation noted Speech: clear, normal rate/rhythm, volume, spontaneous TP: mostly linear TC: hearing voices, worried that brother is trying to hurt her AH/VH: + AH of males telling her that brother trying to hurt her Delusions: persecutory/paranoia delusions Insight/judgment: some improvement, poor x 2. Memory/cog: alert, oriented x 3. grossly intact to conversational testing but not formally tested. Diagnostics Vital Signs (24Hr): Vital Signs - 24 hr 10/06/21 12:00 10/06/21 16:00 10/06/21 19:02 Temperature Pulse Rate 93 106 H Respiratory Rate 17 18 17 Blood Pressure 103/76 Pulse Oximetry 96 96 10/06/21 20:00 10/07/21 00:20 10/07/21 08:27 Temperature 98.1 F Pulse Rate 97 Respiratory Rate 16 16 16 Blood Pressure 108/70 Pulse Oximetry 97 BMI result Body Mass Index 21.8 Labs Results: 09/14/21 07:24 10/07/21 08:17 Labs: Laboratory Results - last 48 hr 10/07/21 08:17 Sodium 135 Potassium 3.7 Chloride 102 Carbon Dioxide 26 Anion Gap 11 L BUN 9 Creatinine 0.60 Estim Creat Clear Calc 88.7 Estimated GFR > 60 Random Glucose 96 Calcium 8.6 Total Bilirubin 0.2 AST 25 ALT 26 Alkaline Phosphatase 91 D Total Protein 4.9 L D Albumin 2.9 L D Imaging Radiology Impressions: ITS Impressions Head CT 09/13/21 12:37 IMPRESSION: No acute intracranial findings. Medications Medications Current Medications Acetaminophen (Acetaminophen 325 Mg Tablet) 650 mg PO Q6H PRN PRN Reason: Fever Or Pain Al Hydroxide/Mg Hydroxide (Magnesium Hydrox/Alum Hydrox 30 Ml Oral.Susp) 30 ml PO Q6H PRN PRN Reason: Heartburn/Nausea Calcium Carbonate/Cholecalciferol (Calcium + Vitamin D 250 Mg Tablet) 250 mg PO DAILY [facility] Last Admin: 10/07/21 08:40 Dose: Not Given Documented by: Docusate Sodium (Docusate Sodium 100 Mg Capsule) 100 mg PO BID [facility] Last Admin: 10/07/21 08:40 Dose: Not Given Documented by: Fluticasone Propionate (Fluticasone Propionate Nasal 16 Gm [place]) 1 spray NOSTRIL-B DAILY PRN PRN Reason: Allergy Symptoms Fondaparinux (Fondaparinux Sodium 7.5 Mg/0.6 Ml Syringe) 7.5 mg SUBCUT Q24H [facility] Last Admin: 10/06/21 12:31 Dose: 7.5 mg Documented by: Gabapentin (Gabapentin 100 Mg Capsule) 200 mg PO TID [facility] Last Admin: 10/07/21 08:36 Dose: 200 mg Documented by: Haloperidol Lactate (Haloperidol Lactate 5 Mg/Ml Vial) 7.5 mg IM BID PRN PRN Reason: refusal of PO Seroquel Last Admin: 10/05/21 10:34 Dose: 7.5 mg Documented by: Hydrocortisone (Hydrocortisone 1 % Cream 28.35 Gm Tube) 1 appl TOPICAL BID PRN PRN Reason: rash Lactulose (Lactulose 20 Gm/30 Ml Solution) 10 gm PO BID PRN PRN Reason: constipation Loratadine (Loratadine 10 Mg Tablet) 10 mg PO DAILY [facility] Last Admin: 10/07/21 08:40 Dose: Not Given Documented by: Lorazepam (Lorazepam 2 Mg/Ml Vial) 2 mg IM BID PRN PRN Reason: Refusal Of PO Ativan Last Admin: 10/05/21 10:34 Dose: 2 mg Documented by: Magnesium Hydroxide (Milk Of Magnesia 30 Ml Oral.Susp) 30 ml PO DAILY PRN PRN Reason: Constipation Melatonin (Melatonin 3 Mg Tablet) 9 mg PO BEDTIME [facility] Last Admin: 10/06/21 22:06 Dose: Not Given Documented by: Multivitamins/Vitamin C (Multivitamin Tablet) 1 tab PO DAILY [facility] Last Admin: 10/07/21 08:40 Dose: Not Given Documented by: Nicotine Polacrilex (Nicotine Polacrilex Lozenge 2 Mg Lozenge) 2 mg BUCCAL Q1H PRN PRN Reason: Nicotine Cravings Omeprazole (Omeprazole 20 Mg Capsule.) 20 mg PO BID@0630,1630 [facility] Last Admin: 10/07/21 08:40 Dose: Not Given Documented by: Quetiapine Fumarate (Quetiapine Fumarate 100 Mg Tablet) 100 mg PO BEDTIME PRN PRN Reason: Insomnia Quetiapine Fumarate (Quetiapine Fumarate 50 Mg Tablet) 50 mg PO Q4H PRN PRN Reason: anxiety Quetiapine Fumarate (Quetiapine Fumarate 200 Mg Tablet) 200 mg PO TID [facility] Last Admin: 10/07/21 08:36 Dose: 200 mg Documented by: Trazodone HCl (Trazodone Hcl 50 Mg Tablet) 50 mg PO BEDTIME PRN PRN Reason: Insomnia Allergies Allergies Allergy/AdvReac Type Severity Reaction Status Date / Time bee pollen Allergy Severe Anaphylaxis Verified 08/25/21 12:46 levofloxacin [From Levaquin] Allergy Severe Itching Verified 08/25/21 12:46 enoxaparin [From Lovenox] Allergy Intermediate Rash Verified 09/12/21 13:58 Penicillins Allergy Unknown Unknown Verified 08/25/21 12:46 Assessment & Plan Assessment & Plan (1) Acute deep vein thrombosis (DVT) of left tibial vein: Status: Acute Code(s): I82.442 - Acute embolism and thrombosis of left tibial vein Assessment and Plan: 65yo F admitted to inpatient psychiatry;s/p L TKA 08/09/21 who developed a LLE DVT diagnosed 09/05/21 treated with apixaban initially, but then refused PO intake switched to enoxaparin but then developed a rash;hospitalists consulted for m anagement of DVT + concern for dehydration # LLE DVT - fondaparinux 7.5 mg SQ daily started 09/16/21; change to apixaban 5 mg bid once taking PO # poor PO intake - monitor electrolytes + physical exam periodically for signs of dehydration; at this point, there are none; will check electrolytes tomorrow am # catatonia - management as per Psychiatry (2) Bipolar 1 disorder: Status: Acute Code(s): F31.9 - Bipolar disorder, unspecified Plan ativan 1 mg TID for recent catatonia.? continue the medication to reduce anxiety/paranoia/mixed lucrecia for now. give usual home meds except for the following: decrease oxycontin to 5 mg each and make PRN. fondaparinux 7.5 mg SQ daily for clot prophylaxis. hospitalist to review medical circumstance regularly.? hospitalist input and involvement appreciated. committed and medications ordered by court 09/20. haldol and ativan IM back-up for med refusal. continues to require regular IMs as of 10/03 due to refusing PO medications. haldol IM back-up increased from 5 mg BID PRN to 7.5 mg BID PRN as of 09/28. ativan back-up increased from 1 mg to 2 mg 09/30. labs 09/28 reassuring re kidney fxn. 10/06- continue current medications. 10/07 continue current medications. I spent minutes with the patient and/or on the patient floor today, greater than?50% of which was spent counseling/coordinating care. Reason for contiued inpatient stay Substantial Risk for: inability to function
[2021-10-07 12:00] VITALS: BP 94/57; PULSE 99; RESP 16; TEMP 36.3; O2SAT 94
--- NOTE | 2021-10-07 12:36 | P.PNIM_ITS ---
Subjective Subjective Date of Service: 10/07/21 Interval History: No acute issues overnight. Staff say taking small amounts of liquid. Review of Systems Will not comply with review of systems Physical Exam Vital Signs: Vital Signs: Last Vital Signs Temp 98.1 F 10/07/21 08:27 Pulse 97 10/07/21 08:27 Resp 16 10/07/21 08:27 BP 108/70 10/07/21 08:27 Pulse Ox 97 10/07/21 08:27 BMI result Body Mass Index 21.8 Const: Other: no acute distress HEENT: Other: Membranes moist Resp: Other: clear to auscultation bilaterally no rales rhonchi wheezes Cardio: Other: no S4; positive S1-S2; no S3 murmurs or gallops GI: Other: soft nontender nondistended normoactive bowel sounds x4 quadrants Neuro: Other: cranial nerves 2-12 grossly intact as observed. Not cooperating with exam. Moving all extremities with equal power Extrem: Other: no edema Objective Data Active Medications Acetaminophen (Acetaminophen 325 Mg Tablet) 650 mg PO Q6H PRN PRN Reason: Fever Or Pain Al Hydroxide/Mg Hydroxide (Magnesium Hydrox/Alum Hydrox 30 Ml Oral.Susp) 30 ml PO Q6H PRN PRN Reason: Heartburn/Nausea Calcium Carbonate/Cholecalciferol (Calcium + Vitamin D 250 Mg Tablet) 250 mg PO DAILY [facility] Last Admin: 10/07/21 08:40 Dose: Not Given Documented by: RUTH ANN Non-Admin Reason: Patient Refused Docusate Sodium (Docusate Sodium 100 Mg Capsule) 100 mg PO BID [facility] Last Admin: 10/07/21 08:40 Dose: Not Given Documented by: RUTH ANN Non-Admin Reason: Patient Refused Fluticasone Propionate (Fluticasone Propionate Nasal 16 Gm [place]) 1 spray NOSTRIL-B DAILY PRN PRN Reason: Allergy Symptoms Fondaparinux (Fondaparinux Sodium 7.5 Mg/0.6 Ml Syringe) 7.5 mg SUBCUT Q24H [facility] Last Admin: 10/06/21 12:31 Dose: 7.5 mg Documented by: JAZMÍN Gabapentin (Gabapentin 100 Mg Capsule) 200 mg PO TID [facility] Last Admin: 10/07/21 08:36 Dose: 200 mg Documented by: RUTH ANN Haloperidol (Haloperidol 5 Mg Tablet) 5 mg PO BEDTIME [facility] Haloperidol Lactate (Haloperidol Lactate 5 Mg/Ml Vial) 7.5 mg IM BID PRN PRN Reason: refusal of PO Seroquel Last Admin: 10/05/21 10:34 Dose: 7.5 mg Documented by: IESHATALChristen Hydrocortisone (Hydrocortisone 1 % Cream 28.35 Gm Tube) 1 appl TOPICAL BID PRN PRN Reason: rash Lactulose (Lactulose 20 Gm/30 Ml Solution) 10 gm PO BID PRN PRN Reason: constipation Loratadine (Loratadine 10 Mg Tablet) 10 mg PO DAILY [facility] Last Admin: 10/07/21 08:40 Dose: Not Given Documented by: RUTH ANN Non-Admin Reason: Patient Refused Lorazepam (Lorazepam 2 Mg/Ml Vial) 2 mg IM BID PRN PRN Reason: Refusal Of PO Ativan Last Admin: 10/05/21 10:34 Dose: 2 mg Documented by: IESHATALChristen Magnesium Hydroxide (Milk Of Magnesia 30 Ml Oral.Susp) 30 ml PO DAILY PRN PRN Reason: Constipation Melatonin (Melatonin 3 Mg Tablet) 9 mg PO BEDTIME [facility] Last Admin: 10/06/21 22:06 Dose: Not Given Documented by: JAZMÍN Non-Admin Reason: Patient Asleep Multivitamins/Vitamin C (Multivitamin Tablet) 1 tab PO DAILY [facility] Last Admin: 10/07/21 08:40 Dose: Not Given Documented by: RUTH ANN Non-Admin Reason: Patient Refused Nicotine Polacrilex (Nicotine Polacrilex Lozenge 2 Mg Lozenge) 2 mg BUCCAL Q1H PRN PRN Reason: Nicotine Cravings Omeprazole (Omeprazole 20 Mg Capsule.Dr) 20 mg PO BID@0630,1630 [facility] Last Admin: 10/07/21 08:40 Dose: Not Given Documented by: RUTH ANN Non-Admin Reason: Patient Refused Quetiapine Fumarate (Quetiapine Fumarate 100 Mg Tablet) 100 mg PO BEDTIME PRN PRN Reason: Insomnia Quetiapine Fumarate (Quetiapine Fumarate 50 Mg Tablet) 50 mg PO Q4H PRN PRN Reason: anxiety Quetiapine Fumarate (Quetiapine Fumarate 200 Mg Tablet) 200 mg PO TID [facility] Last Admin: 10/07/21 08:36 Dose: 200 mg Documented by: HO.SHEAKEL Trazodone HCl (Trazodone Hcl 50 Mg Tablet) 50 mg PO BEDTIME PRN PRN Reason: Insomnia Labs CBC & Chem 7: 09/14/21 07:24 10/07/21 08:17 Labs: Laboratory Results - last 24 hr 10/07/21 08:17 Anion Gap 11 L Estim Creat Clear Calc 88.7 Estimated GFR > 60 Random Glucose 96 Calcium 8.6 Total Bilirubin 0.2 AST 25 ALT 26 Alkaline Phosphatase 91 D Total Protein 4.9 L D Albumin 2.9 L D Assessment and Plan (1) Acute deep vein thrombosis (DVT) of left tibial vein: Status: Acute (2) Bipolar 1 disorder: Status: Acute Plan 65yo F admitted to inpatient psychiatry;s/p L TKA 08/09/21 who developed a LLE DVT diagnosed 09/05/21 treated with apixaban initially, but then refused PO intake switched to enoxaparin but then developed a rash;hospitalists consulted for management of DVT + concern for dehydration; drinking liquids today. Starting to take some oral medication. Previous electrolytes essentially unremarkable 1 LLE DVT - fondaparinux 7.5 mg SQ daily [started 09/16;taken daily ]. - resume apixaban 5 mg bid once taking POs. -beginning to except some oral medication; 1 stable pattern of oral medication can start apixaban 2. Bipolar disorder - as per Psychiatry Quality Stroke Does the patient have a stroke diagnosis?: No VTE Prior VTE?: No VTE Risk Level:: Medical - low VTE Device Contraindication: Patient Refused VTE Drug Contraindication: Patient Refused
[2021-10-07] MEDS: Fondaparinux Sodium 7.5 MG/0.6 ML SYRINGE SUBCUT (13:03)
[2021-10-07 14:42] VITALS: BMI 21.8
--- NOTE | 2021-10-07 14:54 | MHC.CLN ---
F/U REGULAR DIET, NDD3 CONSISTENCY. DISLIKES ENSURE SUPPLEMENT. LIKES ICE CREAM AND WILL EAT MULTIPLE SERVINGS PER DAY. ADDEDD MAGIC CUP TO EACH MEAL TRAY TO PROVIDE ADDITIONAL 870 KCALS, 27 G PROTEIN. NUTRITION DX MODERATE MALNUTRITION IN THE CONTEXT OF CHRONIC ILLNESS. SIGNIFICANT WEIGHT LOSS X 30 DAYS, -14.4%. RD TO FOLLOW INTAKE, WEIGHTS, AND LABS.
[2021-10-07 20:53] VITALS: BP 106/56; PULSE 97; TEMP 36.6; O2SAT 95
[2021-10-07] MEDS: Haloperidol Lactate 5 MG/ML VIAL 7.5 MG IM (21:05)
[2021-10-07] MEDS: LORazepam 2 MG/ML VIAL IM (21:05)
[2021-10-07 21:58] VITALS: RESP 14
[2021-10-08] VITALS: RESP 14
[2021-10-08] MEDS: Magnesium Hydrox/Alum Hydrox 30 ML ORAL.SUSP PO (05:35)
[2021-10-08] MEDS: Omeprazole 20 MG CAPSULE.DR PO (05:35)
[2021-10-08 05:40] VITALS: RESP 16
[2021-10-08 08:00] VITALS: BP 114/67; PULSE 93; RESP 16; TEMP 36.7; O2SAT 96
[2021-10-08] MEDS: QUEtiapine Fumarate 200 MG TABLET PO ×3 (08:49→20:39)
--- NOTE | 2021-10-08 11:41 | HO.PSYCHPN ---
Subjective Subjective Date of Service: 10/08/21 Reason For Visit: Psychosis Interim History: No acute issues reported. Staff report pt eating nd drinkingi fluids more easily. Review of Systems Review of Systems did not participate in review of systems- no changes Yes all other systems are reviewed and are negative, unobtainable due to endotracheal tube and Unobtainable due to mental status Constitutional: Reports no additional constitutional complaints, Denies body ache(s), Denies chills, Reports difficulty sleeping, Denies fever(s), Denies headache(s), Reports poor appetite and Denies weakness Eyes: Reports no additional eye complaints and Denies change in vision Reports system reviewed and no additional complaints, except as documented, Denies dizziness, Denies headache(s), Denies nasal congestion, Denies nasal discharge and Denies neck pain Cardiovascular: Reports no additional cardiovascular complaints, Denies chest pain, Denies leg edema and Denies dyspnea Respiratory: Reports no additional respiratory complaints, Denies cough and Denies dyspnea Gastrointestinal: Reports no additional gastrointestinal complaints, Denies abdominal pain, Denies diarrhea, Denies nausea and Denies vomiting Musculoskeletal: Reports no additional musculoskeletal complaints, Denies back pain, Denies arthralgias, Denies joint swelling, Denies neck pain, Denies numbness and Denies tingling Skin/Breast: Reports system reviewed and no additional complaints, except as docu and Denies rash Reports system reviewed and no additional complaints, except as documented, Denies Abnormal speech present, Denies dizziness, Denies headache(s), Denies numbness, Denies tingling and Denies weakness Psychiatric: Reports anxiety, Reports depression, Denies visual hallucinations, Denies hallucinations, Denies homicidal ideation and Denies suicidal ideation Mental Status Exam Mental Status Exam Narrative: Appearance: wearing hospital gown, in bed, resting, in NAD Behavior: fairly cooperative Psychomotor: no agitation or retardation noted Speech: clear, normal rate/rhythm, volume, spontaneous TP: mostly linear TC: hearing voices, worried that brother is trying to hurt her AH/VH: + AH of males telling her that brother trying to hurt her Delusions: persecutory/paranoia delusions Insight/judgment: some improvement, poor x 2. Memory/cog: alert, oriented x 3. grossly intact to conversational testing but not formally tested. judgment and insight: fair-poor Patient Appearance: Disheveled Diagnostics Vital Signs (24Hr): Vital Signs - 24 hr 10/07/21 12:00 10/07/21 20:53 10/07/21 21:58 Temperature 97.4 F 97.8 F Pulse Rate 99 97 Respiratory Rate 16 14 Blood Pressure 94/57 L 106/56 L Pulse Oximetry 94 95 10/08/21 00:00 10/08/21 05:40 10/08/21 08:00 Temperature 98.0 F Pulse Rate 93 Respiratory Rate 14 16 16 Blood Pressure 114/67 Pulse Oximetry 96 BMI result Body Mass Index 21.8 Labs Results: 09/14/21 07:24 10/07/21 08:17 Labs: Laboratory Results - last 48 hr 10/07/21 08:17 Sodium 135 Potassium 3.7 Chloride 102 Carbon Dioxide 26 Anion Gap 11 L BUN 9 Creatinine 0.60 Estim Creat Clear Calc 88.7 Estimated GFR > 60 Random Glucose 96 Calcium 8.6 Total Bilirubin 0.2 AST 25 ALT 26 Alkaline Phosphatase 91 D Total Protein 4.9 L D Albumin 2.9 L D Imaging Radiology Impressions: ITS Impressions Head CT 09/13/21 12:37 IMPRESSION: No acute intracranial findings. Medications Medications Current Medications Acetaminophen (Acetaminophen 325 Mg Tablet) 650 mg PO Q6H PRN PRN Reason: Fever Or Pain Al Hydroxide/Mg Hydroxide (Magnesium Hydrox/Alum Hydrox 30 Ml Oral.Susp) 30 ml PO Q6H PRN PRN Reason: Heartburn/Nausea Last Admin: 10/08/21 05:35 Dose: 30 ml Documented by: Calcium Carbonate/Cholecalciferol (Calcium + Vitamin D 250 Mg Tablet) 250 mg PO DAILY [facility] Last Admin: 10/08/21 10:22 Dose: Not Given Documented by: Docusate Sodium (Docusate Sodium 100 Mg Capsule) 100 mg PO BID [facility] Last Admin: 10/08/21 10:22 Dose: Not Given Documented by: Fluticasone Propionate (Fluticasone Propionate Nasal 16 Gm [place]) 1 spray NOSTRIL-B DAILY PRN PRN Reason: Allergy Symptoms Fondaparinux (Fondaparinux Sodium 7.5 Mg/0.6 Ml Syringe) 7.5 mg SUBCUT Q24H [facility] Last Admin: 10/07/21 13:03 Dose: 7.5 mg Documented by: Gabapentin (Gabapentin 100 Mg Capsule) 200 mg PO TID [facility] Last Admin: 10/08/21 10:22 Dose: Not Given Documented by: Haloperidol (Haloperidol 5 Mg Tablet) 5 mg PO BEDTIME [facility] Last Admin: 10/07/21 21:06 Dose: Not Given Documented by: Haloperidol Lactate (Haloperidol Lactate 5 Mg/Ml Vial) 7.5 mg IM BID PRN PRN Reason: refusal of PO Seroquel Last Admin: 10/07/21 21:05 Dose: 7.5 mg Documented by: Hydrocortisone (Hydrocortisone 1 % Cream 28.35 Gm Tube) 1 appl TOPICAL BID PRN PRN Reason: rash Lactulose (Lactulose 20 Gm/30 Ml Solution) 10 gm PO BID PRN PRN Reason: constipation Loratadine (Loratadine 10 Mg Tablet) 10 mg PO DAILY [facility] Last Admin: 10/08/21 10:23 Dose: Not Given Documented by: Lorazepam (Lorazepam 2 Mg/Ml Vial) 2 mg IM BID PRN PRN Reason: Refusal Of PO Ativan Last Admin: 10/07/21 21:05 Dose: 2 mg Documented by: Lorazepam (Lorazepam 1 Mg Tablet) 1 mg PO TID [facility] Magnesium Hydroxide (Milk Of Magnesia 30 Ml Oral.Susp) 30 ml PO DAILY PRN PRN Reason: Constipation Melatonin (Melatonin 3 Mg Tablet) 9 mg PO BEDTIME [facility] Last Admin: 10/07/21 21:06 Dose: Not Given Documented by: Multivitamins/Vitamin C (Multivitamin Tablet) 1 tab PO DAILY [facility] Last Admin: 10/08/21 10:23 Dose: Not Given Documented by: Nicotine Polacrilex (Nicotine Polacrilex Lozenge 2 Mg Lozenge) 2 mg BUCCAL Q1H PRN PRN Reason: Nicotine Cravings Omeprazole (Omeprazole 20 Mg Capsule.Dr) 20 mg PO BID@0630,1630 [facility] Last Admin: 10/08/21 05:35 Dose: 20 mg Documented by: Quetiapine Fumarate (Quetiapine Fumarate 100 Mg Tablet) 100 mg PO BEDTIME PRN PRN Reason: Insomnia Quetiapine Fumarate (Quetiapine Fumarate 50 Mg Tablet) 50 mg PO Q4H PRN PRN Reason: anxiety Quetiapine Fumarate (Quetiapine Fumarate 200 Mg Tablet) 200 mg PO TID [facility] Last Admin: 10/08/21 08:49 Dose: 200 mg Documented by: Trazodone HCl (Trazodone Hcl 50 Mg Tablet) 50 mg PO BEDTIME PRN PRN Reason: Insomnia Allergies Allergies Allergy/AdvReac Type Severity Reaction Status Date / Time bee pollen Allergy Severe Anaphylaxis Verified 08/25/21 12:46 levofloxacin [From Levaquin] Allergy Severe Itching Verified 08/25/21 12:46 enoxaparin [From Lovenox] Allergy Intermediate Rash Verified 09/12/21 13:58 Penicillins Allergy Unknown Unknown Verified 08/25/21 12:46 Assessment & Plan Assessment & Plan (1) Acute deep vein thrombosis (DVT) of left tibial vein: Status: Acute Code(s): I82.442 - Acute embolism and thrombosis of left tibial vein (2) Bipolar 1 disorder: Status: Acute Code(s): F31.9 - Bipolar disorder, unspecified Plan 65yo F admitted to inpatient psychiatry;s/p L TKA 08/09/21 who developed a LLE DVT diagnosed 09/05/21 treated with apixaban initially, but then refused PO intake switched to enoxaparin but then developed a rash;hospitalists consulted for management of DVT + concern for dehydration; drinking liquids today. Starting to take some oral medication. Previous electrolytes essentially unremarkable 1 LLE DVT - fondaparinux 7.5 mg SQ daily [started 09/16;taken daily ]. - resume apixaban 5 mg bid once taking POs. -beginning to except some oral medication; 1 stable pattern of oral medication can start apixaban 2. Bipolar disorder - as per Psychiatry ativan renewed continue with current treatment plan I spent 15_ minutes with the patient and/or on the patient floor today, greater than?50% of which was spent counseling/coordinating care. Reason for contiued inpatient stay Substantial Risk for: inability to function and med/psych decompensation
--- NOTE | 2021-10-08 11:45 | PM.EVENT ---
Event Note Date of Service: 10/08/21 Event Note: Still issues with noncompliance however p.o. complains improving. Excepting fondaparinux daily without issue. Would continue same until adequate compliance that achieved. Will follow periodically
[2021-10-08] MEDS: Fondaparinux Sodium 7.5 MG/0.6 ML SYRINGE SUBCUT (11:54)
[2021-10-08] MEDS: LORazepam 1 MG TABLET PO ×3 (11:56→20:39)
[2021-10-08 12:00] VITALS: BP 125/79; PULSE 109; RESP 20; TEMP 36.9; O2SAT 100
[2021-10-08] MEDS: Gabapentin 100 MG CAPSULE 200 MG PO ×2 (14:25→20:39)
[2021-10-08 16:09] VITALS: BP 119/79; PULSE 112; RESP 20; TEMP 36.6; O2SAT 99
[2021-10-08 20:30] VITALS: BP 110/64; PULSE 95; RESP 14; TEMP 36.3; O2SAT 96
[2021-10-08] MEDS: HaloperidoL 5 MG TABLET PO (20:39)
[2021-10-09] VITALS: RESP 14
[2021-10-09 08:00] VITALS: BP 108/66; PULSE 91; RESP 18; TEMP 36.6; O2SAT 97
[2021-10-09] MEDS: LORazepam 1 MG TABLET PO ×3 (10:19→22:16)
[2021-10-09] MEDS: Loratadine 10 MG TABLET PO (10:20)
[2021-10-09] MEDS: QUEtiapine Fumarate 200 MG TABLET PO ×3 (10:21→22:16)
[2021-10-09] MEDS: Calcium + Vitamin D 250 MG TABLET PO (10:22)
[2021-10-09] MEDS: Gabapentin 100 MG CAPSULE 200 MG PO ×3 (10:22→22:16)
[2021-10-09] MEDS: Fondaparinux Sodium 7.5 MG/0.6 ML SYRINGE SUBCUT (11:33)
[2021-10-09] MEDS: Docusate Sodium 100 MG CAPSULE PO (11:35)
[2021-10-09] MEDS: Multivitamin TABLET 1 TAB PO (11:36)
[2021-10-09 12:00] VITALS: BP 140/70; PULSE 102; O2SAT 98
--- NOTE | 2021-10-09 15:44 | P.PNPSI_ITS ---
Subjective Subjective Date of Service: 10/09/21 Reason For Visit: Psychosis Subjective Notes: Conditional Voluntary Interim History: Pt used phone today to call police for them to help her get out of hospital. other [place] no behavioral concerns, She is taking PO meds. Staff report pt eating and drinking fluids more easily. Medication Compliance: Yes Side effects from medications: No Attending Groups: No Review of Systems Acute medical concerns: No Medical Review of Systems: unchanged Review of Systems Review of Systems did not participate in review of systems- no changes Yes all other systems are reviewed and are negative, unobtainable due to endotracheal tube and Unobtainable due to mental status Constitutional: Reports no additional constitutional complaints, Denies body ache(s), Denies chills, Reports difficulty sleeping, Denies fever(s), Denies headache(s), Reports poor appetite and Denies weakness Eyes: Reports no additional eye complaints and Denies change in vision Reports system reviewed and no additional complaints, except as documented, Denies dizziness, Denies headache(s), Denies nasal congestion, Denies nasal discharge and Denies neck pain Cardiovascular: Reports no additional cardiovascular complaints, Denies chest pain, Denies leg edema and Denies dyspnea Respiratory: Reports no additional respiratory complaints, Denies cough and Denies dyspnea Gastrointestinal: Reports no additional gastrointestinal complaints, Denies abdominal pain, Denies diarrhea, Denies nausea and Denies vomiting Musculoskeletal: Reports no additional musculoskeletal complaints, Denies back pain, Denies arthralgias, Denies joint swelling, Denies neck pain, Denies numbness and Denies tingling Skin/Breast: Reports system reviewed and no additional complaints, except as docu and Denies rash Reports system reviewed and no additional complaints, except as documented, Denies Abnormal speech present, Denies dizziness, Denies headache(s), Denies numbness, Denies tingling and Denies weakness Psychiatric: Reports anxiety, Reports depression, Denies visual hallucinations, Denies hallucinations, Denies homicidal ideation and Denies suicidal ideation Mental Status Exam Mental Status Exam Narrative: Appearance: wearing hospital gown, in bed, resting, in NAD Behavior: fairly cooperative Psychomotor: no agitation or retardation noted Speech: clear, normal rate/rhythm, volume, spontaneous TP: mostly linear TC: hearing voices, worried that brother is trying to hurt her AH/VH: + AH of males telling her that brother trying to hurt her Delusions: persecutory/paranoia delusions Insight/judgment: some improvement, poor x 2. Memory/cog: alert, oriented x 3. grossly intact to conversational testing but not formally tested. judgment and insight: fair-poor Patient Appearance: Disheveled Diagnostics Vital Signs (24Hr): Vital Signs - 24 hr 10/08/21 16:09 10/08/21 20:30 10/09/21 00:00 Temperature 97.8 F 97.4 F Pulse Rate 112 H 95 Respiratory Rate 20 14 14 Blood Pressure 119/79 110/64 Pulse Oximetry 99 96 10/09/21 08:00 10/09/21 12:00 Temperature 97.9 F Pulse Rate 91 102 H Respiratory Rate 18 Blood Pressure 108/66 140/70 H Pulse Oximetry 97 98 BMI result Body Mass Index 21.8 Labs Results: 09/14/21 07:24 10/07/21 08:17 Imaging Radiology Impressions: ITS Impressions Head CT 09/13/21 12:37 IMPRESSION: No acute intracranial findings. Medications Medications Current Medications Acetaminophen (Acetaminophen 325 Mg Tablet) 650 mg PO Q6H PRN PRN Reason: Fever Or Pain Al Hydroxide/Mg Hydroxide (Magnesium Hydrox/Alum Hydrox 30 Ml Oral.Susp) 30 ml PO Q6H PRN PRN Reason: Heartburn/Nausea Last Admin: 10/08/21 05:35 Dose: 30 ml Documented by: Calcium Carbonate/Cholecalciferol (Calcium + Vitamin D 250 Mg Tablet) 250 mg PO DAILY REPLACED BY [facility] Last Admin: 10/09/21 10:22 Dose: 250 mg Documented by: Docusate Sodium (Docusate Sodium 100 Mg Capsule) 100 mg PO BID REPLACED BY [facility] Last Admin: 10/09/21 11:35 Dose: 100 mg Documented by: Fluticasone Propionate (Fluticasone Propionate Nasal 16 Gm [place]) 1 spray NOSTRIL-B DAILY PRN PRN Reason: Allergy Symptoms Fondaparinux (Fondaparinux Sodium 7.5 Mg/0.6 Ml Syringe) 7.5 mg SUBCUT Q24H REPLACED BY [facility] Last Admin: 10/09/21 11:33 Dose: 7.5 mg Documented by: Gabapentin (Gabapentin 100 Mg Capsule) 200 mg PO TID REPLACED BY [facility] Last Admin: 10/09/21 15:30 Dose: 200 mg Documented by: Haloperidol (Haloperidol 5 Mg Tablet) 5 mg PO BEDTIME REPLACED BY [facility] Last Admin: 10/08/21 20:39 Dose: 5 mg Documented by: Haloperidol Lactate (Haloperidol Lactate 5 Mg/Ml Vial) 7.5 mg IM BID PRN PRN Reason: refusal of PO Seroquel Last Admin: 10/07/21 21:05 Dose: 7.5 mg Documented by: Hydrocortisone (Hydrocortisone 1 % Cream 28.35 Gm Tube) 1 appl TOPICAL BID PRN PRN Reason: rash Lactulose (Lactulose 20 Gm/30 Ml Solution) 10 gm PO BID PRN PRN Reason: constipation Loratadine (Loratadine 10 Mg Tablet) 10 mg PO DAILY REPLACED BY [facility] Last Admin: 10/09/21 10:20 Dose: 10 mg Documented by: Lorazepam (Lorazepam 2 Mg/Ml Vial) 2 mg IM BID PRN PRN Reason: Refusal Of PO Ativan Last Admin: 10/07/21 21:05 Dose: 2 mg Documented by: Lorazepam (Lorazepam 1 Mg Tablet) 1 mg PO TID REPLACED BY [facility] Last Admin: 10/09/21 14:21 Dose: 1 mg Documented by: Magnesium Hydroxide (Milk Of Magnesia 30 Ml Oral.Susp) 30 ml PO DAILY PRN PRN Reason: Constipation Melatonin (Melatonin 3 Mg Tablet) 9 mg PO BEDTIME REPLACED BY [facility] Last Admin: 10/08/21 20:57 Dose: Not Given Documented by: Multivitamins/Vitamin C (Multivitamin Tablet) 1 tab PO DAILY REPLACED BY [facility] Last Admin: 10/09/21 11:36 Dose: 1 tab Documented by: Nicotine Polacrilex (Nicotine Polacrilex Lozenge 2 Mg Lozenge) 2 mg BUCCAL Q1H PRN PRN Reason: Nicotine Cravings Omeprazole (Omeprazole 20 Mg Capsule.Dr) 20 mg PO BID@0630,1630 REPLACED BY [facility] Last Admin: 10/09/21 10:23 Dose: Not Given Documented by: Quetiapine Fumarate (Quetiapine Fumarate 100 Mg Tablet) 100 mg PO BEDTIME PRN PRN Reason: Insomnia Quetiapine Fumarate (Quetiapine Fumarate 50 Mg Tablet) 50 mg PO Q4H PRN PRN Reason: anxiety Quetiapine Fumarate (Quetiapine Fumarate 200 Mg Tablet) 200 mg PO TID REPLACED BY [facility] Last Admin: 10/09/21 14:21 Dose: 200 mg Documented by: Trazodone HCl (Trazodone Hcl 50 Mg Tablet) 50 mg PO BEDTIME PRN PRN Reason: Insomnia Allergies Allergies Allergy/AdvReac Type Severity Reaction Status Date / Time bee pollen Allergy Severe Anaphylaxis Verified 08/25/21 12:46 levofloxacin [From Levaquin] Allergy Severe Itching Verified 08/25/21 12:46 enoxaparin [From Lovenox] Allergy Intermediate Rash Verified 09/12/21 13:58 Penicillins Allergy Unknown Unknown Verified 08/25/21 12:46 Assessment & Plan Assessment & Plan (1) Acute deep vein thrombosis (DVT) of left tibial vein: Status: Acute Code(s): I82.442 - Acute embolism and thrombosis of left tibial vein (2) Bipolar 1 disorder: Status: Acute Code(s): F31.9 - Bipolar disorder, unspecified Plan 65yo F admitted to inpatient psychiatry;s/p L TKA 08/09/21 who developed a LLE DVT diagnosed 09/05/21 treated with apixaban initially, but then refused PO intake switched to enoxaparin but then developed a rash;hospitalists consulted for management of DVT + concern for dehydration; drinking liquids today. Starting to take some oral medication. Previous electrolytes essentially unremarkable 1 LLE DVT - fondaparinux 7.5 mg SQ daily [started 09/16;taken daily ]. - resume apixaban 5 mg bid once taking POs. -beginning to except some oral medication; 1 stable pattern of oral medication can start apixaban 2. Bipolar disorder - as per Psychiatry 10/09/21 ativan renewed continue with current treatment plan I spent minutes with the patient and/or on the patient floor today, greater than?50% of which was spent counseling/coordinating care. Reason for contiued inpatient stay Substantial Risk for: harm to self, inability to function, rapid decompensation and med/psych decompensation
[2021-10-09 21:50] VITALS: RESP 16
[2021-10-09] MEDS: HaloperidoL 5 MG TABLET PO (22:16)
[2021-10-09] MEDS: Melatonin 3 MG TABLET 9 MG PO (22:17)
--- NOTE | 2021-10-10 | ECG_ITS ---
Test Reason : ECT CLEARENCE Blood Pressure : / mmHG Vent. Rate : 102 BPM Atrial Rate : 102 BPM P-R Int : 122 ms QRS Dur : 066 ms QT Int : 338 ms P-R-T Axes : 017 040 037 degrees QTc Int : 440 ms Sinus tachycardia Otherwise normal ECG When compared with ECG of 09-SEP-2021 09:44, No significant change was found Referred By: Daryn Meredith Electronically Signed By:Arturo Tomlinson
[2021-10-10 01:06] VITALS: RESP 14
[2021-10-10 04:15] VITALS: RESP 14
[2021-10-10 08:05] VITALS: BP 118/65; PULSE 106; RESP 16; TEMP 36.8; O2SAT 97
[2021-10-10] MEDS: Gabapentin 100 MG CAPSULE 200 MG PO ×3 (08:31→20:37)
[2021-10-10] MEDS: QUEtiapine Fumarate 200 MG TABLET PO (08:31)
[2021-10-10] MEDS: LORazepam 1 MG TABLET PO (08:31)
[2021-10-10 12:00] VITALS: BP 106/62; PULSE 72; RESP 16; TEMP 37.1; O2SAT 95
--- NOTE | 2021-10-10 13:52 | P.PNPSI_ITS ---
Subjective Subjective Date of Service: 10/10/21 Reason For Visit: Psychosis Interim History: pt seen in her room, jose NAYAK as doctor. states she is feeling so much better. she is interested in ECT. we discuss her previous regimen, which she reports was 1200 mg seroquel at HS. MD informs her he will investigate moving her medications back in the direction of her previous outpt regimen. MD informs her he will take actions to have her referred to and cleared for ECT, per her request. per staff, taking PO meds now for about the past week. ate ice cream yesterday. states she's doing good. nevertheless presents with blank stare and with disorganized thoughts. slept well overnight. haldol 5 at HS was added sunday. Mental Status Exam Mental Status Exam Narrative: Pt awake and alert. She is in hospital attire, able to collaborate in her care, no blank staring and normal eye contact. more organized thoughts, jose NAYAK as doctor rather than dawna. trustful, not delusional. affect more flexible, not irritable and min-labile. no SI/HI/AVH expressed. Diagnostics Vital Signs (24Hr): Vital Signs - 24 hr 10/09/21 21:50 10/10/21 01:06 10/10/21 04:15 Temperature Pulse Rate Respiratory Rate 16 14 14 Blood Pressure Pulse Oximetry 10/10/21 08:05 Temperature 98.2 F Pulse Rate 106 H Respiratory Rate 16 Blood Pressure 118/65 Pulse Oximetry 97 BMI result Body Mass Index 21.8 Labs Results: 09/14/21 07:24 10/07/21 08:17 Imaging Radiology Impressions: ITS Impressions Head CT 09/13/21 12:37 IMPRESSION: No acute intracranial findings. Medications Medications Current Medications Acetaminophen (Acetaminophen 325 Mg Tablet) 650 mg PO Q6H PRN PRN Reason: Fever Or Pain Al Hydroxide/Mg Hydroxide (Magnesium Hydrox/Alum Hydrox 30 Ml Oral.Susp) 30 ml PO Q6H PRN PRN Reason: Heartburn/Nausea Last Admin: 10/08/21 05:35 Dose: 30 ml Documented by: Apixaban (Apixaban 5 Mg Tablet) 5 mg PO BID [facility] Calcium Carbonate/Cholecalciferol (Calcium + Vitamin D 250 Mg Tablet) 250 mg PO DAILY [facility] Last Admin: 10/10/21 10:09 Dose: Not Given Documented by: Docusate Sodium (Docusate Sodium 100 Mg Capsule) 100 mg PO BID [facility] Last Admin: 10/10/21 10:09 Dose: Not Given Documented by: Fluticasone Propionate (Fluticasone Propionate Nasal 16 Gm [place]) 1 spray NOSTRIL-B DAILY PRN PRN Reason: Allergy Symptoms Gabapentin (Gabapentin 100 Mg Capsule) 200 mg PO TID [facility] Last Admin: 10/10/21 08:31 Dose: 200 mg Documented by: Hydrocortisone (Hydrocortisone 1 % Cream 28.35 Gm Tube) 1 appl TOPICAL BID PRN PRN Reason: rash Lactulose (Lactulose 20 Gm/30 Ml Solution) 10 gm PO BID PRN PRN Reason: constipation Loratadine (Loratadine 10 Mg Tablet) 10 mg PO DAILY [facility] Last Admin: 10/10/21 10:09 Dose: Not Given Documented by: Lorazepam (Lorazepam 0.5 Mg Tablet) 0.5 mg PO TID [facility] Magnesium Hydroxide (Milk Of Magnesia 30 Ml Oral.Susp) 30 ml PO DAILY PRN PRN Reason: Constipation Melatonin (Melatonin 3 Mg Tablet) 9 mg PO BEDTIME [facility] Last Admin: 10/09/21 22:17 Dose: 9 mg Documented by: Multivitamins/Vitamin C (Multivitamin Tablet) 1 tab PO DAILY [facility] Last Admin: 10/10/21 10:09 Dose: Not Given Documented by: Nicotine Polacrilex (Nicotine Polacrilex Lozenge 2 Mg Lozenge) 2 mg BUCCAL Q1H PRN PRN Reason: Nicotine Cravings Omeprazole (Omeprazole 20 Mg Capsule.Dr) 20 mg PO BID@0630,1630 [facility] Last Admin: 10/10/21 08:34 Dose: Not Given Documented by: Quetiapine Fumarate (Quetiapine Fumarate 100 Mg Tablet) 100 mg PO BEDTIME PRN PRN Reason: Insomnia Quetiapine Fumarate (Quetiapine Fumarate 50 Mg Tablet) 50 mg PO Q4H PRN PRN Reason: anxiety Quetiapine Fumarate (Quetiapine Fumarate 300 Mg Tablet) 600 mg PO BEDTIME [facility] Allergies Allergies Allergy/AdvReac Type Severity Reaction Status Date / Time bee pollen Allergy Severe Anaphylaxis Verified 08/25/21 12:46 levofloxacin [From Levaquin] Allergy Severe Itching Verified 08/25/21 12:46 enoxaparin [From Lovenox] Allergy Intermediate Rash Verified 09/12/21 13:58 Penicillins Allergy Unknown Unknown Verified 08/25/21 12:46 Assessment & Plan Assessment & Plan (1) Acute deep vein thrombosis (DVT) of left tibial vein: Status: Acute Code(s): I82.442 - Acute embolism and thrombosis of left tibial vein Assessment and Plan: 65yo F admitted to inpatient psychiatry;s/p L TKA 08/09/21 who developed a LLE DVT diagnosed 09/05/21 treated with apixaban initially, but then refused PO intake switched to enoxaparin but then developed a rash;hospitalists consulted for management of DVT + concern for dehydration; drinking liquids today. Starting to take some oral medication. Previous electrolytes essentially unremarkable 1 LLE DVT - fondaparinux 7.5 mg SQ daily [started 09/16;taken daily ]. - resume apixaban 5 mg bid once taking POs. -beginning to except some oral medication; 1 stable pattern of oral medication can start apixaban 2. Bipolar disorder - as per Psychiatry (2) Bipolar 1 disorder: Status: Acute Code(s): F31.9 - Bipolar disorder, unspecified Plan ativan 1 mg TID for recent catatonia decreased to 0.5 TID as of 10/10 as pt has recently improved substantially. taper off. oxycontin DCed. fondaparinux 7.5 mg SQ daily for clot prophylaxis DCed 10/10 in favor of eliquis PO 5 BID. committed and medications ordered by court 09/20. haldol and ativan IM back-up for med refusal. continues to require regular IMs as of 10/03 due to refusing PO medications. by 10/10 taking meds all PO. haldol IM back-up increased from 5 mg BID PRN to 7.5 mg BID PRN as of 09/28. ativan back-up increased from 1 mg to 2 mg 09/30. labs 10/07 reassuring re kidney fxn. work toward restoring home psych med regimen. seroquel changed from 200 TID to 600 QHS as of 10/10. requesting ECT. referred to [facility] med clearance consult placed I spent __25____ minutes with the patient and/or on the patient floor today, greater than?50% of which was spent counseling/coordinating care. Reason for contiued inpatient stay Substantial Risk for: inability to function and rapid decompensation
[2021-10-10] MEDS: Apixaban 5 MG TABLET PO (15:35)
--- NOTE | 2021-10-10 15:35 | MHC.CLN ---
Addendum entered by Angelica Cam RD 10/10/21 15:38: RD TO FOLLOW WEEKLY. Original Note: F/U REGULAR DIET, NDD3 CONSISTENCY. DISLIKES ENSURE SUPPLEMENT. LIKES ICE CREAM AND WILL EAT MULTIPLE SERVINGS PER DAY. ADDED MAGIC CUP TO EACH MEAL TRAY TO PROVIDE ADDITIONAL 870 KCALS, 27 G PROTEIN. PATIENT EATING IN COMMON AREA. STAFF REPORTS THAT PATIENT IS DOING MUCH BETTER WITH EATING. RD TO FOLLOW INTAKE, WEIGHTS, AND LABS.
[2021-10-10] MEDS: Omeprazole 20 MG CAPSULE.DR PO (15:36)
[2021-10-10] MEDS: LORazepam 0.5 MG TABLET PO ×2 (15:36→20:37)
[2021-10-10] MEDS: Acetaminophen 325 MG TABLET 650 MG PO (16:47)
[2021-10-10 20:28] VITALS: RESP 16
[2021-10-10] MEDS: Melatonin 3 MG TABLET 9 MG PO (20:37)
[2021-10-10] MEDS: QUEtiapine Fumarate 300 MG TABLET 600 MG PO (20:37)
--- NOTE | 2021-10-10 22:39 | PC.NURSE ---
Pt started on Eliquis 5 mg PO BID today, received first dose at 1535. Pt requested to take meds and go to sleep around 2030. Pharmacy contacted to inquire if it was too soon to receive bedtime dose. It was recommended that this dose be given around midnight or held until the morning. Provider space operations officer, Dr. Mccabe, contacted for further instruction; bedtime dose to be held.
[2021-10-11 01:16] VITALS: RESP 16
[2021-10-11 04:29] VITALS: RESP 14
--- NOTE | 2021-10-11 07:48 | HO.PM.IMPN ---
Subjective Subjective Date of Service: 10/11/21 Interval History: Marked improvement she in affect. Engaging; asking pertinent questions. More compliant with therapies; now taking Eliquis Review of Systems Denies chest pain Denies shortness of breath Denies nausea vomiting diarrhea Denies fever chills Physical Exam Vital Signs: Vital Signs: Last Vital Signs Temp 98.7 F 10/10/21 12:00 Pulse 72 10/10/21 12:00 Resp 14 10/11/21 04:29 BP 106/62 10/10/21 12:00 Pulse Ox 95 10/10/21 12:00 BMI result Body Mass Index 21.8 Const: Other: no acute distress HEENT: Other: Membranes moist Resp: Other: clear to auscultation bilaterally no rales rhonchi wheezes Cardio: Other: no S4; positive S1-S2; no S3 murmurs or gallops GI: Other: soft nontender nondistended normoactive bowel sounds x4 quadrants Neuro: Other: cranial nerves 2-12 grossly intact as observed. Not cooperating with exam. Moving all extremities with equal power Extrem: Other: no edema Objective Data Active Medications Acetaminophen (Acetaminophen 325 Mg Tablet) 650 mg PO Q6H PRN PRN Reason: Fever Or Pain Last Admin: 10/10/21 16:47 Dose: 650 mg Documented by: RUTH ANN Al Hydroxide/Mg Hydroxide (Magnesium Hydrox/Alum Hydrox 30 Ml Oral.Susp) 30 ml PO Q6H PRN PRN Reason: Heartburn/Nausea Last Admin: 10/08/21 05:35 Dose: 30 ml Documented by: ST[place]ON Apixaban (Apixaban 5 Mg Tablet) 5 mg PO BID [facility] Last Admin: 10/10/21 20:39 Dose: Not Given Documented by: WIMLER Non-Admin Reason: held per MD, see nursing note Calcium Carbonate/Cholecalciferol (Calcium + Vitamin D 250 Mg Tablet) 250 mg PO DAILY [facility] Last Admin: 10/10/21 10:09 Dose: Not Given Documented by: RUTH ANN Non-Admin Reason: Patient Refused Docusate Sodium (Docusate Sodium 100 Mg Capsule) 100 mg PO BID [facility] Last Admin: 10/10/21 20:45 Dose: Not Given Documented by: WILMER Non-Admin Reason: Patient Refused Fluticasone Propionate (Fluticasone Propionate Nasal 16 Gm [place]) 1 spray NOSTRIL-B DAILY PRN PRN Reason: Allergy Symptoms Gabapentin (Gabapentin 100 Mg Capsule) 200 mg PO TID [facility] Last Admin: 10/10/21 20:37 Dose: 200 mg Documented by: WILMER Hydrocortisone (Hydrocortisone 1 % Cream 28.35 Gm Tube) 1 appl TOPICAL BID PRN PRN Reason: rash Lactulose (Lactulose 20 Gm/30 Ml Solution) 10 gm PO BID PRN PRN Reason: constipation Loratadine (Loratadine 10 Mg Tablet) 10 mg PO DAILY [facility] Last Admin: 10/10/21 10:09 Dose: Not Given Documented by: RUTH ANN Non-Admin Reason: Patient Refused Lorazepam (Lorazepam 0.5 Mg Tablet) 0.5 mg PO TID [facility] Last Admin: 10/10/21 20:37 Dose: 0.5 mg Documented by: WILMER Magnesium Hydroxide (Milk Of Magnesia 30 Ml Oral.Susp) 30 ml PO DAILY PRN PRN Reason: Constipation Melatonin (Melatonin 3 Mg Tablet) 9 mg PO BEDTIME [facility] Last Admin: 10/10/21 20:37 Dose: 9 mg Documented by: WILMER Multivitamins/Vitamin C (Multivitamin Tablet) 1 tab PO DAILY [facility] Last Admin: 10/10/21 10:09 Dose: Not Given Documented by: RUTH ANN Non-Admin Reason: Patient Refused Nicotine Polacrilex (Nicotine Polacrilex Lozenge 2 Mg Lozenge) 2 mg BUCCAL Q1H PRN PRN Reason: Nicotine Cravings Omeprazole (Omeprazole 20 Mg Jose Juan.) 20 mg PO BID@0630,1630 [facility] Last Admin: 10/10/21 15:36 Dose: 20 mg Documented by: RUTH ANN Quetiapine Fumarate (Quetiapine Fumarate 100 Mg Tablet) 100 mg PO BEDTIME PRN PRN Reason: Insomnia Quetiapine Fumarate (Quetiapine Fumarate 50 Mg Tablet) 50 mg PO Q4H PRN PRN Reason: anxiety Quetiapine Fumarate (Quetiapine Fumarate 300 Mg Tablet) 600 mg PO BEDTIME [facility] Last Admin: 10/10/21 20:37 Dose: 600 mg Documented by: WILMER Labs CBC & Chem 7: 09/14/21 07:24 10/07/21 08:17 ECG Interpretation: Sinus tachycardia at 102. Normal intervals normal axis. No acute ST-T changes. No changes since ECG of 09/09/2021 Assessment and Plan (1) Acute deep vein thrombosis (DVT) of left tibial vein: Status: Acute (2) Bipolar 1 disorder: Status: Acute Plan 65yo F admitted to inpatient psychiatry;s/p L TKA 08/09/21 who developed a LLE DVT diagnosed 09/05/21 treated with apixaban initially, but then refused PO intake;switched to enoxaparin but then developed a rash;hospitalists consulted for management of DVT; started on Fondaparinux secondary to noncompliance with oral therapies. Now taking orals without incident. Switched to Eliquis. Requested clearance for ECT 1 LLE DVT -excepting Eliquis -will need 3 months of therapy then repeat ultrasound to document clearance -should complaints change can restartFondaparinux 7.5mg SC daily 2. Bipolar disorder - patient is a moderate but acceptable risk for ECT and can proceed as per Dr. Meredith Please call if further assistance needed. Thanks as per Psychiatry Quality Stroke Does the patient have a stroke diagnosis?: No VTE Prior VTE?: No VTE Risk Level:: Medical - low VTE Device Contraindication: Patient Refused VTE Drug Contraindication: Patient Refused
[2021-10-11 08:00] VITALS: BP 119/77; PULSE 103; RESP 16; TEMP 36.9; O2SAT 95
[2021-10-11] MEDS: Multivitamin TABLET 1 TAB PO (08:25)
[2021-10-11] MEDS: Gabapentin 100 MG CAPSULE 200 MG PO ×3 (08:25→20:16)
[2021-10-11] MEDS: LORazepam 0.5 MG TABLET PO (08:26)
[2021-10-11] MEDS: Apixaban 5 MG TABLET PO ×2 (08:26→20:16)
[2021-10-11] MEDS: Loratadine 10 MG TABLET PO (08:26)
[2021-10-11] MEDS: Omeprazole 20 MG CAPSULE.DR PO ×2 (08:27→15:34)
[2021-10-11] MEDS: Calcium + Vitamin D 250 MG TABLET PO (08:27)
[2021-10-11] MEDS: Docusate Sodium 100 MG CAPSULE PO ×2 (08:37→20:16)
--- NOTE | 2021-10-11 14:47 | P.PNPSI_ITS ---
Subjective Subjective Date of Service: 10/11/21 Reason For Visit: Psychosis Interim History: pt found in the milieu, calm, pleasant, cooperative. asking for ECT. agreeable to discuss with her substance abuse services director. states she continues to feel better, bit not great. asking for DC of chopped diet. no other complaints or requests. per staff, said RN killed her dog yesterday. took PO meds. wants gabapentin increase. seen by medicine for clearance. Mental Status Exam Mental Status Exam Narrative: Pt awake and alert. She is in street clothes, able to collaborate in her care, no blank staring and normal eye contact. more organized thoughts, greets as doctor rather than dawna. trustful, not delusional. affect more flexible, not irritable and min-labile. no SI/HI/AVH expressed. Diagnostics Vital Signs (24Hr): Vital Signs - 24 hr 10/10/21 20:28 10/11/21 01:16 10/11/21 04:29 Temperature Pulse Rate Respiratory Rate 16 16 14 Blood Pressure Pulse Oximetry 10/11/21 08:00 Temperature 98.5 F Pulse Rate 103 H Respiratory Rate 16 Blood Pressure 119/77 Pulse Oximetry 95 BMI result Body Mass Index 21.8 Labs Results: 09/14/21 07:24 10/07/21 08:17 Imaging Radiology Impressions: ITS Impressions Head CT 09/13/21 12:37 IMPRESSION: No acute intracranial findings. Medications Medications Current Medications Acetaminophen (Acetaminophen 325 Mg Tablet) 650 mg PO Q6H PRN PRN Reason: Fever Or Pain Last Admin: 10/10/21 16:47 Dose: 650 mg Documented by: Al Hydroxide/Mg Hydroxide (Magnesium Hydrox/Alum Hydrox 30 Ml Oral.Susp) 30 ml PO Q6H PRN PRN Reason: Heartburn/Nausea Last Admin: 10/08/21 05:35 Dose: 30 ml Documented by: Apixaban (Apixaban 5 Mg Tablet) 5 mg PO BID ON LICENSE OF [facility] Last Admin: 10/11/21 08:26 Dose: 5 mg Documented by: Calcium Carbonate/Cholecalciferol (Calcium + Vitamin D 250 Mg Tablet) 250 mg PO DAILY ON LICENSE OF [facility] Last Admin: 10/11/21 08:27 Dose: 250 mg Documented by: Docusate Sodium (Docusate Sodium 100 Mg Capsule) 100 mg PO BID ON LICENSE OF [facility] Last Admin: 10/11/21 08:37 Dose: 100 mg Documented by: Fluticasone Propionate (Fluticasone Propionate Nasal 16 Gm [place]) 1 spray NOSTRIL-B DAILY PRN PRN Reason: Allergy Symptoms Gabapentin (Gabapentin 100 Mg Capsule) 200 mg PO TID ON LICENSE OF [facility] Last Admin: 10/11/21 14:29 Dose: 200 mg Documented by: Hydrocortisone (Hydrocortisone 1 % Cream 28.35 Gm Tube) 1 appl TOPICAL BID PRN PRN Reason: rash Lactulose (Lactulose 20 Gm/30 Ml Solution) 10 gm PO BID PRN PRN Reason: constipation Loratadine (Loratadine 10 Mg Tablet) 10 mg PO DAILY ON LICENSE OF [facility] Last Admin: 10/11/21 08:26 Dose: 10 mg Documented by: Magnesium Hydroxide (Milk Of Magnesia 30 Ml Oral.Susp) 30 ml PO DAILY PRN PRN Reason: Constipation Melatonin (Melatonin 3 Mg Tablet) 9 mg PO BEDTIME ON LICENSE OF [facility] Last Admin: 10/10/21 20:37 Dose: 9 mg Documented by: Multivitamins/Vitamin C (Multivitamin Tablet) 1 tab PO DAILY ON LICENSE OF [facility] Last Admin: 10/11/21 08:25 Dose: 1 tab Documented by: Nicotine Polacrilex (Nicotine Polacrilex Lozenge 2 Mg Lozenge) 2 mg BUCCAL Q1H PRN PRN Reason: Nicotine Cravings Omeprazole (Omeprazole 20 Mg Capsule.Dr) 20 mg PO BID@0630,1630 ON LICENSE OF [facility] Last Admin: 10/11/21 08:27 Dose: 20 mg Documented by: Quetiapine Fumarate (Quetiapine Fumarate 100 Mg Tablet) 100 mg PO BEDTIME PRN PRN Reason: Insomnia Quetiapine Fumarate (Quetiapine Fumarate 50 Mg Tablet) 50 mg PO Q4H PRN PRN Reason: anxiety Quetiapine Fumarate (Quetiapine Fumarate 400 Mg Tablet) 800 mg PO BEDTIME ON LICENSE OF [facility] Allergies Allergies Allergy/AdvReac Type Severity Reaction Status Date / Time bee pollen Allergy Severe Anaphylaxis Verified 08/25/21 12:46 levofloxacin [From Levaquin] Allergy Severe Itching Verified 08/25/21 12:46 enoxaparin [From Lovenox] Allergy Intermediate Rash Verified 09/12/21 13:58 Penicillins Allergy Unknown Unknown Verified 08/25/21 12:46 Assessment & Plan Assessment & Plan (1) Acute deep vein thrombosis (DVT) of left tibial vein: Status: Acute Code(s): I82.442 - Acute embolism and thrombosis of left tibial vein Assessment and Plan: 65yo F admitted to inpatient psychiatry;s/p L TKA 08/09/21 who developed a LLE DVT diagnosed 09/05/21 treated with apixaban initially, but then refused PO intake;switched to enoxaparin but then developed a rash;hospitalists consulted for management of DVT; started on Fondaparinux secondary to noncompliance with oral therapies. Now taking orals without incident. Switched to Eliquis. Requested clearance for ECT 1 LLE DVT -excepting Eliquis -will need 3 months of therapy then repeat ultrasound to document clearance -should complaints change can restartFondaparinux 7.5mg SC daily 2. Bipolar disorder - patient is a moderate but acceptable risk for ECT and can proceed as per Dr. Meredith (2) Bipolar 1 disorder: Status: Acute Code(s): F31.9 - Bipolar disorder, unspecified Plan ativan 1 mg TID for recent catatonia decreased to 0.5 TID as of 10/10 as pt has recently improved substantially.? taper off. oxycontin DCed. fondaparinux 7.5 mg SQ daily for clot prophylaxis DCed 10/10 in favor of eliquis PO 5 BID. committed and medications ordered by court 09/20. haldol and ativan IM back-up for med refusal. continues to require regular IMs as of 10/03 due to refusing PO medications.? by 10/10 taking meds all PO. haldol IM back-up increased from 5 mg BID PRN to 7.5 mg BID PRN as of 09/28. ativan back-up increased from 1 mg to 2 mg 09/30. labs 10/07 reassuring re kidney fxn. work toward restoring home psych med regimen.? seroquel changed from 200 TID to 600 QHS as of 10/10. requesting ECT.? referred to [facility] med clearance completed. will need to get ECT added to court order in order to proceed, however. seroquel increased to 800 QHS as of 10/11. I spent ___35___ minutes with the patient and/or on the patient floor today, greater than?50% of which was spent counseling/coordinating care. Reason for contiued inpatient stay Substantial Risk for: harm to self, inability to function and rapid decompensation
[2021-10-11] MEDS: QUEtiapine Fumarate 50 MG TABLET PO (15:34)
[2021-10-11] MEDS: Acetaminophen 325 MG TABLET 650 MG PO (17:12)
[2021-10-11] MEDS: LORazepam 1 MG TABLET PO (19:29)
[2021-10-11 20:00] VITALS: BP 120/73; PULSE 103; RESP 16; TEMP 36.7; O2SAT 96
[2021-10-11] MEDS: Melatonin 3 MG TABLET 9 MG PO (20:15)
[2021-10-11] MEDS: QUEtiapine Fumarate 400 MG TABLET 800 MG PO (20:16)
[2021-10-12 08:15] VITALS: BP 114/75; PULSE 100; RESP 16; TEMP 36.6; O2SAT 96
[2021-10-12] MEDS: Gabapentin 100 MG CAPSULE 200 MG PO ×3 (08:17→20:43)
[2021-10-12] MEDS: Omeprazole 20 MG CAPSULE.DR PO ×2 (08:17→16:28)
[2021-10-12] MEDS: Multivitamin TABLET 1 TAB PO (08:17)
[2021-10-12] MEDS: Apixaban 5 MG TABLET PO ×2 (08:17→20:43)
[2021-10-12] MEDS: Calcium + Vitamin D 250 MG TABLET PO (08:17)
[2021-10-12] MEDS: Docusate Sodium 100 MG CAPSULE PO (08:17)
[2021-10-12] MEDS: Loratadine 10 MG TABLET PO (08:17)
[2021-10-12] MEDS: QUEtiapine Fumarate 50 MG TABLET PO (10:09)
[2021-10-12] MEDS: Acetaminophen 325 MG TABLET 650 MG PO (10:09)
[2021-10-12] MEDS: QUEtiapine Fumarate 100 MG TABLET PO ×2 (12:12→16:28)
--- NOTE | 2021-10-12 13:23 | P.PNPSI_ITS ---
Subjective Subjective Date of Service: 10/12/21 Reason For Visit: Psychosis Interim History: pt found lying in bed, awake and alert. addresses MD as doctor. states she has a depressed mood and is interested in ECT. MD informs her he will work with compliance attorney to have ECT added to the Tx plan. pt otherwise has no complaints or requests. she is informed of additional doses of seroquel and ativan during the day. per staff, was talking about guns and bodies on the unit yesterday. Mental Status Exam Mental Status Exam Narrative: Pt awake and alert. She is in street clothes, able to collaborate in her care, no blank staring and normal eye contact. more organized thoughts, greets MD as doctor rather than dawna. trustful, not delusional. affect more flexible, not irritable and non-labile. no SI/HI/AVH expressed. Diagnostics Vital Signs (24Hr): Vital Signs - 24 hr 10/11/21 20:00 Temperature 98.0 F Pulse Rate 103 H Respiratory Rate 16 Blood Pressure 120/73 Pulse Oximetry 96 BMI result Body Mass Index 21.8 Labs Results: 09/14/21 07:24 10/07/21 08:17 Imaging Radiology Impressions: ITS Impressions Head CT 09/13/21 12:37 IMPRESSION: No acute intracranial findings. Medications Medications Current Medications Acetaminophen (Acetaminophen 325 Mg Tablet) 650 mg PO Q6H PRN PRN Reason: Fever Or Pain Last Admin: 10/12/21 10:09 Dose: 650 mg Documented by: Al Hydroxide/Mg Hydroxide (Magnesium Hydrox/Alum Hydrox 30 Ml Oral.Susp) 30 ml PO Q6H PRN PRN Reason: Heartburn/Nausea Last Admin: 10/08/21 05:35 Dose: 30 ml Documented by: Apixaban (Apixaban 5 Mg Tablet) 5 mg PO BID [facility] Last Admin: 10/12/21 08:17 Dose: 5 mg Documented by: Calcium Carbonate/Cholecalciferol (Calcium + Vitamin D 250 Mg Tablet) 250 mg PO DAILY [facility] Last Admin: 10/12/21 08:17 Dose: 250 mg Documented by: Docusate Sodium (Docusate Sodium 100 Mg Capsule) 100 mg PO BID [facility] Last Admin: 10/12/21 08:17 Dose: 100 mg Documented by: Fluticasone Propionate (Fluticasone Propionate Nasal 16 Gm [place]) 1 spray NOSTRIL-B DAILY PRN PRN Reason: Allergy Symptoms Gabapentin (Gabapentin 100 Mg Capsule) 200 mg PO TID [facility] Last Admin: 10/12/21 08:17 Dose: 200 mg Documented by: Hydrocortisone (Hydrocortisone 1 % Cream 28.35 Gm Tube) 1 appl TOPICAL BID PRN PRN Reason: rash Lactulose (Lactulose 20 Gm/30 Ml Solution) 10 gm PO BID PRN PRN Reason: constipation Loratadine (Loratadine 10 Mg Tablet) 10 mg PO DAILY [facility] Last Admin: 10/12/21 08:17 Dose: 10 mg Documented by: Lorazepam (Lorazepam 0.5 Mg Tablet) 0.5 mg PO TID [facility] Magnesium Hydroxide (Milk Of Magnesia 30 Ml Oral.Susp) 30 ml PO DAILY PRN PRN Reason: Constipation Melatonin (Melatonin 3 Mg Tablet) 9 mg PO BEDTIME [facility] Last Admin: 10/11/21 20:15 Dose: 9 mg Documented by: Multivitamins/Vitamin C (Multivitamin Tablet) 1 tab PO DAILY [facility] Last Admin: 10/12/21 08:17 Dose: 1 tab Documented by: Nicotine Polacrilex (Nicotine Polacrilex Lozenge 2 Mg Lozenge) 2 mg BUCCAL Q1H PRN PRN Reason: Nicotine Cravings Omeprazole (Omeprazole 20 Mg Capsule.Dr) 20 mg PO BID@0630,1630 [facility] Last Admin: 10/12/21 08:17 Dose: 20 mg Documented by: Quetiapine Fumarate (Quetiapine Fumarate 100 Mg Tablet) 100 mg PO BEDTIME PRN PRN Reason: Insomnia Quetiapine Fumarate (Quetiapine Fumarate 50 Mg Tablet) 50 mg PO Q4H PRN PRN Reason: anxiety Last Admin: 10/12/21 10:09 Dose: 50 mg Documented by: Quetiapine Fumarate (Quetiapine Fumarate 400 Mg Tablet) 800 mg PO BEDTIME [facility] Last Admin: 10/11/21 20:16 Dose: 800 mg Documented by: Quetiapine Fumarate (Quetiapine Fumarate 100 Mg Tablet) 100 mg PO BID@0900,1500 [facility] Last Admin: 10/12/21 12:12 Dose: 100 mg Documented by: Allergies Allergies Allergy/AdvReac Type Severity Reaction Status Date / Time bee pollen Allergy Severe Anaphylaxis Verified 08/25/21 12:46 levofloxacin [From Levaquin] Allergy Severe Itching Verified 08/25/21 12:46 enoxaparin [From Lovenox] Allergy Intermediate Rash Verified 09/12/21 13:58 Penicillins Allergy Unknown Unknown Verified 08/25/21 12:46 Assessment & Plan Assessment & Plan (1) Acute deep vein thrombosis (DVT) of left tibial vein: Status: Acute Code(s): I82.442 - Acute embolism and thrombosis of left tibial vein Assessment and Plan: 65yo F admitted to inpatient psychiatry;s/p L TKA 08/09/21 who developed a LLE DVT diagnosed 09/05/21 treated with apixaban initially, but then refused PO intake;switched to enoxaparin but then developed a rash;hospitalists consulted for management of DVT; started on Fondaparinux secondary to noncompliance with oral therapies. Now taking orals without incident. Switched to Eliquis. Requested clearance for ECT 1 LLE DVT -excepting Eliquis -will need 3 months of therapy then repeat ultrasound to document clearance -should complaints change can restartFondaparinux 7.5mg SC daily 2. Bipolar disorder - patient is a moderate but acceptable risk for ECT and can proceed as per Dr. Meredith (2) Bipolar 1 disorder: Status: Acute Code(s): F31.9 - Bipolar disorder, unspecified Plan ativan 1 mg TID for recent catatonia decreased to 0.5 TID as of 10/10 as pt has recently improved substantially.? taper off. oxycontin DCed. fondaparinux 7.5 mg SQ daily for clot prophylaxis DCed 10/10 in favor of eliquis PO 5 BID. committed and medications ordered by court 09/20. haldol and ativan IM back-up for med refusal. continues to require regular IMs as of 10/03 due to refusing PO medications.? by 10/10 taking meds all PO. haldol IM back-up increased from 5 mg BID PRN to 7.5 mg BID PRN as of 09/28. ativan back-up increased from 1 mg to 2 mg 09/30. labs 10/07 reassuring re kidney fxn. work toward restoring home psych med regimen.? seroquel changed from 200 TID to 600 QHS as of 10/10. requesting ECT.? referred to [facility] med clearance completed. will need to get ECT added to court order in order to proceed, however. seroquel increased to 800 QHS as of 10/11. seroquel 100 QAM and Q3pm added 10/12 due to ongoing delusions and agitation. ativan 0.5 mg TID reinstated as well 10/12. communicated with inside account representative 10/12 to have ECT added to Tx plan. I spent ___35___ minutes with the patient and/or on the patient floor today, greater than?50% of which was spent counseling/coordinating care. Reason for contiued inpatient stay Substantial Risk for: harm to self, inability to function and rapid decompensation
[2021-10-12] MEDS: LORazepam 1 MG TABLET PO (13:45)
--- NOTE | 2021-10-12 16:04 | MHC.CLN ---
F/U ALERTED BY DINING SERVICES THAT PATIENT DOES NOT WANT MAGIC CUP. OK TO DISCONTINUE SENDING. DIET=REGULAR. UPGRADED FROM NDD3 ON 10/11. REGULAR DIET, NDD3 CONSISTENCY. DISLIKES ENSURE SUPPLEMENT. LIKES ICE CREAM AND WILL EAT MULTIPLE SERVINGS PER DAY. ADDED MAGIC CUP TO PATIENT WITH OVERALL IMPROVEMENT AND TAKING MEDICATIONS. RD TO FOLLOW INTAKE, WEIGHTS, AND LABS.
[2021-10-12] MEDS: QUEtiapine Fumarate 400 MG TABLET 800 MG PO (20:43)
[2021-10-12] MEDS: LORazepam 0.5 MG TABLET PO (20:44)
[2021-10-12] MEDS: Melatonin 3 MG TABLET 9 MG PO (20:44)
[2021-10-12 20:47] VITALS: BP 108/65; PULSE 101; RESP 14; TEMP 36.4; O2SAT 95
[2021-10-13 07:00] VITALS: BMI 22.7
[2021-10-13] MEDS: Gabapentin 100 MG CAPSULE 200 MG PO ×3 (08:11→20:12)
[2021-10-13] MEDS: Multivitamin TABLET 1 TAB PO (08:11)
[2021-10-13] MEDS: Apixaban 5 MG TABLET PO ×2 (08:11→20:12)
[2021-10-13] MEDS: QUEtiapine Fumarate 100 MG TABLET PO ×4 (08:12→23:35)
[2021-10-13] MEDS: Docusate Sodium 100 MG CAPSULE PO ×2 (08:12→20:12)
[2021-10-13] MEDS: LORazepam 0.5 MG TABLET PO ×3 (08:12→20:12)
[2021-10-13] MEDS: Calcium + Vitamin D 250 MG TABLET PO (08:13)
[2021-10-13] MEDS: Loratadine 10 MG TABLET PO (08:13)
[2021-10-13] MEDS: Omeprazole 20 MG CAPSULE.DR PO ×2 (08:13→17:47)
[2021-10-13 08:16] VITALS: BP 103/75; PULSE 100; RESP 16; TEMP 36.6; O2SAT 96
[2021-10-13] MEDS: QUEtiapine Fumarate 50 MG TABLET PO (12:48)
--- NOTE | 2021-10-13 13:39 | HO.PSYCHPN ---
Subjective Subjective Date of Service: 10/13/21 Reason For Visit: Psychosis Interim History: pt observed seated in the milieu, but interview took place in her room. she was lying down but sat up when MD entered the room and addressed MD as doctor and inquired quite appropriately about the status of her request for ECT. MD updated her and informed her there is an agreement which seems to be getting arranged with her men's furnishings salesperson. she appeared anxious and needing reassurance that she would be able to get ECT. per staff, spending more time in milieu, talking with others. tearful at times yesterday. dep 10/09. said she is tired of people laughing at her (there is no perception by staff that anyone is laughing at her). asking for ECT. good PO intake, taking meds PO. somewhat suspicious of peers and staff. Mental Status Exam Mental Status Exam Narrative: Pt awake and alert. She is in street clothes, able to collaborate in her care, no blank staring and normal eye contact. more organized thoughts, greets MD as doctor rather than dawna. trustful, not delusional. affect more flexible, not irritable and non-labile. no SI/HI/AVH expressed. Diagnostics Vital Signs (24Hr): Vital Signs - 24 hr 10/12/21 20:47 10/13/21 08:16 Temperature 97.6 F 98 F Pulse Rate 101 H 100 Respiratory Rate 14 16 Blood Pressure 108/65 103/75 Pulse Oximetry 95 96 BMI result Body Mass Index 22.7 Labs Results: 09/14/21 07:24 10/07/21 08:17 Imaging Radiology Impressions: ITS Impressions Head CT 09/13/21 12:37 IMPRESSION: No acute intracranial findings. Medications Medications Current Medications Acetaminophen (Acetaminophen 325 Mg Tablet) 650 mg PO Q6H PRN PRN Reason: Fever Or Pain Last Admin: 10/12/21 10:09 Dose: 650 mg Documented by: Al Hydroxide/Mg Hydroxide (Magnesium Hydrox/Alum Hydrox 30 Ml Oral.Susp) 30 ml PO Q6H PRN PRN Reason: Heartburn/Nausea Last Admin: 10/08/21 05:35 Dose: 30 ml Documented by: Apixaban (Apixaban 5 Mg Tablet) 5 mg PO BID [facility] Last Admin: 10/13/21 08:11 Dose: 5 mg Documented by: Calcium Carbonate/Cholecalciferol (Calcium + Vitamin D 250 Mg Tablet) 250 mg PO DAILY [facility] Last Admin: 10/13/21 08:13 Dose: 250 mg Documented by: Docusate Sodium (Docusate Sodium 100 Mg Capsule) 100 mg PO BID [facility] Last Admin: 10/13/21 08:12 Dose: 100 mg Documented by: Fluticasone Propionate (Fluticasone Propionate Nasal 16 Gm [place]) 1 spray NOSTRIL-B DAILY PRN PRN Reason: Allergy Symptoms Gabapentin (Gabapentin 100 Mg Capsule) 200 mg PO TID [facility] Last Admin: 10/13/21 08:11 Dose: 200 mg Documented by: Hydrocortisone (Hydrocortisone 1 % Cream 28.35 Gm Tube) 1 appl TOPICAL BID PRN PRN Reason: rash Lactulose (Lactulose 20 Gm/30 Ml Solution) 10 gm PO BID PRN PRN Reason: constipation Loratadine (Loratadine 10 Mg Tablet) 10 mg PO DAILY [facility] Last Admin: 10/13/21 08:13 Dose: 10 mg Documented by: Lorazepam (Lorazepam 0.5 Mg Tablet) 0.5 mg PO TID [facility] Last Admin: 10/13/21 08:12 Dose: 0.5 mg Documented by: Magnesium Hydroxide (Milk Of Magnesia 30 Ml Oral.Susp) 30 ml PO DAILY PRN PRN Reason: Constipation Melatonin (Melatonin 3 Mg Tablet) 9 mg PO BEDTIME [facility] Last Admin: 10/12/21 20:44 Dose: 9 mg Documented by: Multivitamins/Vitamin C (Multivitamin Tablet) 1 tab PO DAILY [facility] Last Admin: 10/13/21 08:11 Dose: 1 tab Documented by: Nicotine Polacrilex (Nicotine Polacrilex Lozenge 2 Mg Lozenge) 2 mg BUCCAL Q1H PRN PRN Reason: Nicotine Cravings Omeprazole (Omeprazole 20 Mg Capsule.Dr) 20 mg PO BID@0630,1630 [facility] Last Admin: 10/13/21 08:13 Dose: 20 mg Documented by: Quetiapine Fumarate (Quetiapine Fumarate 100 Mg Tablet) 100 mg PO BEDTIME PRN PRN Reason: Insomnia Quetiapine Fumarate (Quetiapine Fumarate 50 Mg Tablet) 50 mg PO Q4H PRN PRN Reason: anxiety Last Admin: 10/13/21 12:48 Dose: 50 mg Documented by: Quetiapine Fumarate (Quetiapine Fumarate 400 Mg Tablet) 800 mg PO BEDTIME [facility] Last Admin: 10/12/21 20:43 Dose: 800 mg Documented by: Quetiapine Fumarate (Quetiapine Fumarate 100 Mg Tablet) 100 mg PO BID@0900,1500 [facility] Last Admin: 10/13/21 08:12 Dose: 100 mg Documented by: Allergies Allergies Allergy/AdvReac Type Severity Reaction Status Date / Time bee pollen Allergy Severe Anaphylaxis Verified 08/25/21 12:46 levofloxacin [From Levaquin] Allergy Severe Itching Verified 08/25/21 12:46 enoxaparin [From Lovenox] Allergy Intermediate Rash Verified 09/12/21 13:58 Penicillins Allergy Unknown Unknown Verified 08/25/21 12:46 Assessment & Plan Assessment & Plan (1) Acute deep vein thrombosis (DVT) of left tibial vein: Status: Acute Code(s): I82.442 - Acute embolism and thrombosis of left tibial vein Assessment and Plan: 65yo F admitted to inpatient psychiatry;s/p L TKA 08/09/21 who developed a LLE DVT diagnosed 09/05/21 treated with apixaban initially, but then refused PO intake;switched to enoxaparin but then developed a rash;hospitalists consulted for management of DVT; started on Fondaparinux secondary to noncompliance with oral therapies. Now taking orals without incident. Switched to Eliquis. Requested clearance for ECT 1 LLE DVT -excepting Eliquis -will need 3 months of therapy then repeat ultrasound to document clearance -should complaints change can restartFondaparinux 7.5mg SC daily 2. Bipolar disorder - patient is a moderate but acceptable risk for ECT and can proceed as per Dr. Meredith (2) Bipolar 1 disorder: Status: Acute Code(s): F31.9 - Bipolar disorder, unspecified Plan ativan 1 mg TID for recent catatonia decreased to 0.5 TID as of 10/10 as pt has recently improved substantially.? taper off. oxycontin DCed. fondaparinux 7.5 mg SQ daily for clot prophylaxis DCed 10/10 in favor of eliquis PO 5 BID. committed and medications ordered by court 09/20. haldol and ativan IM back-up for med refusal. continues to require regular IMs as of 10/03 due to refusing PO medications.? by 10/10 taking meds all PO. haldol IM back-up increased from 5 mg BID PRN to 7.5 mg BID PRN as of 09/28. ativan back-up increased from 1 mg to 2 mg 09/30. labs 10/07 reassuring re kidney fxn. work toward restoring home psych med regimen.? seroquel changed from 200 TID to 600 QHS as of 10/10. requesting ECT.? referred to [facility] nicole clearance completed. will need to get ECT added to court order in order to proceed, however. seroquel increased to 800 QHS as of 10/11. seroquel 100 QAM and Q3pm added 10/12 due to ongoing delusions and agitation. ativan 0.5 mg TID reinstated as well 10/12. communicated with men's furnishings salesperson 10/12 to have ECT added to Tx plan. I spent __25____ minutes with the patient and/or on the patient floor today, greater than?50% of which was spent counseling/coordinating care. Reason for contiued inpatient stay Substantial Risk for: inability to function and rapid decompensation
[2021-10-13] MEDS: QUEtiapine Fumarate 400 MG TABLET 800 MG PO (20:12)
[2021-10-13] MEDS: Melatonin 3 MG TABLET 9 MG PO (20:12)
[2021-10-13 20:16] VITALS: BP 128/71; PULSE 103; TEMP 36.3; O2SAT 96
[2021-10-13] MEDS: Acetaminophen 325 MG TABLET 650 MG PO (23:58)
[2021-10-14] MEDS: Omeprazole 20 MG CAPSULE.DR PO (08:34)
[2021-10-14] MEDS: Gabapentin 100 MG CAPSULE 200 MG PO ×3 (08:34→19:56)
[2021-10-14] MEDS: LORazepam 0.5 MG TABLET PO ×3 (08:34→19:59)
[2021-10-14] MEDS: Multivitamin TABLET 1 TAB PO (08:34)
[2021-10-14] MEDS: Calcium + Vitamin D 250 MG TABLET PO (08:34)
[2021-10-14] MEDS: Loratadine 10 MG TABLET PO (08:34)
[2021-10-14] MEDS: QUEtiapine Fumarate 100 MG TABLET PO ×3 (08:34→19:57)
[2021-10-14] MEDS: Docusate Sodium 100 MG CAPSULE PO ×2 (08:34→19:58)
[2021-10-14] MEDS: Apixaban 5 MG TABLET PO ×2 (08:34→19:59)
[2021-10-14 08:50] VITALS: BP 116/79; PULSE 93; RESP 17; TEMP 36.2; O2SAT 98
[2021-10-14 09:25] VITALS: BP 106/80; PULSE 104; RESP 16; TEMP 36.1; O2SAT 97
--- NOTE | 2021-10-14 09:25 | PC.NURSE ---
Per 1:1 staff pt tripped while walking outside to fresh air break, per staff PT fell on her bottom and got up on her own. Pt assessed, vital signs assessed, provider notified.
--- NOTE | 2021-10-14 11:38 | P.PNPSI_ITS ---
Subjective Subjective Date of Service: 10/14/21 Reason For Visit: Psychosis Interim History: pt seen coming out of group shortly after the start of it, agreeable to interview. anxious, concerned ECT won't happen. states she spoke with her breaster this morning and he told her she might start ECT on sunday. clarified ECT would not start until at the earliest due to sunday holiday. pt expressed understanding. some paranoia that we are not helping her and she will never have ECT, MD reassures her. discussed neurontin and plan to NOT increase dose back to prior outpatient regimen of 800 TID as pt is planning to start ECT soon and neurontin is an AED. pt denies any pains from her fall yesterdaym denies having hit her head. no other questions or complaints. per staff, e asily distracted. paranoid and delusional: they [staff] are going to let me . eating, sleeping OK. no SI/HI. denies AVH but appears to RIS per staff. suspicious. c/o extreme anxiety. wants ECT. Mental Status Exam Mental Status Exam Narrative: Pt awake and alert. She is in street clothes, able to collaborate in her care, no blank staring and normal eye contact. more organized thoughts, greets as doctor. paranoid and possibly delusional. affect constricted, not irritable and non-labile. no SI/HI/AVH expressed. Diagnostics Vital Signs (24Hr): Vital Signs - 24 hr 10/13/21 20:16 10/14/21 08:50 10/14/21 09:25 Temperature 97.4 F 97.2 F 96.9 F Pulse Rate 103 H 93 104 H Respiratory Rate 17 16 Blood Pressure 128/71 116/79 106/80 Pulse Oximetry 96 98 97 BMI result Body Mass Index 22.7 Labs Results: 09/14/21 07:24 10/07/21 08:17 Imaging Radiology Impressions: ITS Impressions Head CT 09/13/21 12:37 IMPRESSION: No acute intracranial findings. Medications Medications Current Medications Acetaminophen (Acetaminophen 325 Mg Tablet) 650 mg PO Q6H PRN PRN Reason: Fever Or Pain Last Admin: 10/13/21 23:58 Dose: 650 mg Documented by: Al Hydroxide/Mg Hydroxide (Magnesium Hydrox/Alum Hydrox 30 Ml Oral.Susp) 30 ml PO Q6H PRN PRN Reason: Heartburn/Nausea Last Admin: 10/08/21 05:35 Dose: 30 ml Documented by: Apixaban (Apixaban 5 Mg Tablet) 5 mg PO BID [facility] Last Admin: 10/14/21 08:34 Dose: 5 mg Documented by: Calcium Carbonate/Cholecalciferol (Calcium + Vitamin D 250 Mg Tablet) 250 mg PO DAILY [facility] Last Admin: 10/14/21 08:34 Dose: 250 mg Documented by: Docusate Sodium (Docusate Sodium 100 Mg Capsule) 100 mg PO BID [facility] Last Admin: 10/14/21 08:34 Dose: 100 mg Documented by: Fluticasone Propionate (Fluticasone Propionate Nasal 16 Gm Switchback) 1 spray NOSTRIL-B DAILY PRN PRN Reason: Allergy Symptoms Gabapentin (Gabapentin 100 Mg Capsule) 200 mg PO TID [facility] Last Admin: 10/14/21 08:34 Dose: 200 mg Documented by: Hydrocortisone (Hydrocortisone 1 % Cream 28.35 Gm Tube) 1 appl TOPICAL BID PRN PRN Reason: rash Lactulose (Lactulose 20 Gm/30 Ml Solution) 10 gm PO BID PRN PRN Reason: constipation Loratadine (Loratadine 10 Mg Tablet) 10 mg PO DAILY [facility] Last Admin: 10/14/21 08:34 Dose: 10 mg Documented by: Lorazepam (Lorazepam 0.5 Mg Tablet) 0.5 mg PO TID [facility] Last Admin: 10/14/21 08:34 Dose: 0.5 mg Documented by: Magnesium Hydroxide (Milk Of Magnesia 30 Ml Oral.Susp) 30 ml PO DAILY PRN PRN Reason: Constipation Melatonin (Melatonin 3 Mg Tablet) 9 mg PO BEDTIME [facility] Last Admin: 10/13/21 20:12 Dose: 9 mg Documented by: Multivitamins/Vitamin C (Multivitamin Tablet) 1 tab PO DAILY [facility] Last Admin: 10/14/21 08:34 Dose: 1 tab Documented by: Nicotine Polacrilex (Nicotine Polacrilex Lozenge 2 Mg Lozenge) 2 mg BUCCAL Q1H PRN PRN Reason: Nicotine Cravings Omeprazole (Omeprazole 20 Mg Capsule.Dr) 20 mg PO BID@0630,1630 [facility] Last Admin: 10/14/21 08:34 Dose: 20 mg Documented by: Quetiapine Fumarate (Quetiapine Fumarate 100 Mg Tablet) 100 mg PO BEDTIME PRN PRN Reason: Insomnia Last Admin: 10/13/21 23:35 Dose: 100 mg Documented by: Quetiapine Fumarate (Quetiapine Fumarate 50 Mg Tablet) 50 mg PO Q4H PRN PRN Reason: anxiety Last Admin: 10/13/21 12:48 Dose: 50 mg Documented by: Quetiapine Fumarate (Quetiapine Fumarate 400 Mg Tablet) 800 mg PO BEDTIME [facility] Last Admin: 10/13/21 20:12 Dose: 800 mg Documented by: Quetiapine Fumarate (Quetiapine Fumarate 100 Mg Tablet) 100 mg PO BID@0900,1500 [facility] Last Admin: 10/14/21 08:34 Dose: 100 mg Documented by: Allergies Allergies Allergy/AdvReac Type Severity Reaction Status Date / Time bee pollen Allergy Severe Anaphylaxis Verified 08/25/21 12:46 levofloxacin [From Levaquin] Allergy Severe Itching Verified 08/25/21 12:46 enoxaparin [From Lovenox] Allergy Intermediate Rash Verified 09/12/21 13:58 Penicillins Allergy Unknown Unknown Verified 08/25/21 12:46 Assessment & Plan Assessment & Plan (1) Acute deep vein thrombosis (DVT) of left tibial vein: Status: Acute Code(s): I82.442 - Acute embolism and thrombosis of left tibial vein Assessment and Plan: 65yo F admitted to inpatient psychiatry;s/p L TKA 08/09/21 who developed a LLE DVT diagnosed 09/05/21 treated with apixaban initially, but then refused PO intake;switched to enoxaparin but then developed a rash;hospitalists consulted for management of DVT; started on Fondaparinux secondary to noncompliance with oral therapies. Now taking orals without incident. Switched to Eliquis. Requested clearance for ECT 1 LLE DVT -excepting Eliquis -will need 3 months of therapy then repeat ultrasound to document clearance -should complaints change can restartFondaparinux 7.5mg SC daily 2. Bipolar disorder - patient is a moderate but acceptable risk for ECT and can proceed as per Dr. Meredith (2) Bipolar 1 disorder: Status: Acute Code(s): F31.9 - Bipolar disorder, unspecified Plan ativan 1 mg TID for recent catatonia decreased to 0.5 TID as of 10/10 as pt has recently improved substantially.? taper off. oxycontin DCed. fondaparinux 7.5 mg SQ daily for clot prophylaxis DCed 10/10 in favor of eliquis PO 5 BID. committed and medications ordered by court 09/20. haldol and ativan IM back-up for med refusal. continues to require regular IMs as of 10/03 due to refusing PO medications.? by 10/10 taking meds all PO. haldol IM back-up increased from 5 mg BID PRN to 7.5 mg BID PRN as of 09/28. ativan back-up increased from 1 mg to 2 mg 09/30. labs 10/07 reassuring re kidney fxn. work toward restoring home psych med regimen.? seroquel changed from 200 TID to 600 QHS as of 10/10. requesting ECT.? referred to mandy nicole clearance completed. will need to get ECT added to court order in order to proceed, however. seroquel increased to 800 QHS as of 10/11. seroquel 100 QAM and Q3pm added 10/12 due to ongoing delusions and agitation. ativan 0.5 mg TID reinstated as well 10/12. communicated with breaster 10/12 to have ECT added to Tx plan. I spent ___25___ minutes with the patient and/or on the patient floor today, greater than?50% of which was spent counseling/coordinating care. Reason for contiued inpatient stay Substantial Risk for: harm to self, inability to function and rapid decompensation
[2021-10-14] MEDS: QUEtiapine Fumarate 50 MG TABLET PO (18:46)
[2021-10-14] MEDS: QUEtiapine Fumarate 400 MG TABLET 800 MG PO (19:57)
[2021-10-14] MEDS: Acetaminophen 325 MG TABLET 650 MG PO (19:58)
[2021-10-14] MEDS: Melatonin 3 MG TABLET 9 MG PO (19:58)
[2021-10-14 20:45] VITALS: BP 124/66; PULSE 92; RESP 18; TEMP 36.6; O2SAT 97
[2021-10-15] MEDS: QUEtiapine Fumarate 50 MG TABLET PO ×2 (03:52→09:28)
[2021-10-15] MEDS: Acetaminophen 325 MG TABLET 650 MG PO (06:31)
[2021-10-15] MEDS: Magnesium Hydrox/Alum Hydrox 30 ML ORAL.SUSP PO (06:31)
[2021-10-15] MEDS: Omeprazole 20 MG CAPSULE.DR PO ×2 (06:32→17:35)
--- NOTE | 2021-10-15 06:44 | ECG_ITS ---
Test Reason : cp Blood Pressure : / mmHG Vent. Rate : 100 BPM Atrial Rate : 100 BPM P-R Int : 134 ms QRS Dur : 074 ms QT Int : 354 ms P-R-T Axes : 000 145 173 degrees QTc Int : 456 ms Normal sinus rhythm Left posterior fascicular block Inferior infarct , age undetermined Abnormal ECG When compared with ECG of 10-OCT-2021 15:46, Left posterior fascicular block is now Present Inferior infarct is now Present T wave inversion now evident in Inferior leads T wave inversion now evident in Lateral leads Referred By: Inocencia Morrison Electronically Signed By:CHARU SCHULER MD
--- NOTE | 2021-10-15 08:02 | PC.NURSE ---
On arrival, patient reports she feels 'terrible emotionally, physically, and mentally.' Patient denies chest pain but states she feels 'racy.'
[2021-10-15 08:03] VITALS: BP 127/74; PULSE 98; RESP 18; TEMP 36.4; O2SAT 98
[2021-10-15] MEDS: Loratadine 10 MG TABLET PO (08:05)
[2021-10-15] MEDS: Calcium + Vitamin D 250 MG TABLET PO (08:05)
[2021-10-15] MEDS: Multivitamin TABLET 1 TAB PO (08:05)
[2021-10-15] MEDS: LORazepam 0.5 MG TABLET PO ×3 (08:06→20:34)
[2021-10-15] MEDS: Apixaban 5 MG TABLET PO ×2 (08:06→20:34)
[2021-10-15] MEDS: Docusate Sodium 100 MG CAPSULE PO ×2 (08:06→20:34)
[2021-10-15] MEDS: QUEtiapine Fumarate 100 MG TABLET PO ×2 (08:06→14:21)
[2021-10-15] MEDS: Gabapentin 100 MG CAPSULE 200 MG PO ×3 (08:07→20:34)
--- NOTE | 2021-10-15 09:39 | HO.PSYCHPN ---
Subjective Subjective Date of Service: 10/15/21 Reason For Visit: Psychosis Subjective Notes: Conditional Voluntary Healthcare Proxy: No Guardianship: No Interim History: Patient was seen and discussed in rounds today. Records and plans were reviewed. She continues to be on one-to-one observation. She has been tearful at times. She did have a fall yesterday with no injuries. Sleeping adequately and eating okay. She also had some chest pain with no other symptoms yesterday. She had a panic attack this morning and Seroquel was given with pending affect. She does have some Ativan ordered also in case that proves to be ineffective. No other complaints. No changes Review of Systems Review of Systems did not participate in review of systems- no changes Yes all other systems are reviewed and are negative, unobtainable due to endotracheal tube and Unobtainable due to mental status Constitutional: Reports no additional constitutional complaints, Denies body ache(s), Denies chills, Reports difficulty sleeping, Denies fever(s), Denies headache(s), Reports poor appetite and Denies weakness Eyes: Reports no additional eye complaints and Denies change in vision Reports system reviewed and no additional complaints, except as documented, Denies dizziness, Denies headache(s), Denies nasal congestion, Denies nasal discharge and Denies neck pain Cardiovascular: Reports no additional cardiovascular complaints, Denies chest pain, Denies leg edema and Denies dyspnea Respiratory: Reports no additional respiratory complaints, Denies cough and Denies dyspnea Gastrointestinal: Reports no additional gastrointestinal complaints, Denies abdominal pain, Denies diarrhea, Denies nausea and Denies vomiting Musculoskeletal: Reports no additional musculoskeletal complaints, Denies back pain, Denies arthralgias, Denies joint swelling, Denies neck pain, Denies numbness and Denies tingling Skin/Breast: Reports system reviewed and no additional complaints, except as docu and Denies rash Reports system reviewed and no additional complaints, except as documented, Denies Abnormal speech present, Denies dizziness, Denies headache(s), Denies numbness, Denies tingling and Denies weakness Psychiatric: Reports anxiety, Reports depression, Denies visual hallucinations, Denies hallucinations, Denies homicidal ideation and Denies suicidal ideation Mental Status Exam Mental Status Exam Narrative: In today's visit she is alert, pleasant and minimally interactive. Speech is normal. No eye contact. No signs of psychosis. Affect is subdued and constricted no SI. Judgment is unknown Diagnostics Vital Signs (24Hr): Vital Signs - 24 hr 10/14/21 20:45 10/15/21 08:03 Temperature 97.9 F 97.6 F Pulse Rate 92 98 Respiratory Rate 18 18 Blood Pressure 124/66 127/74 Pulse Oximetry 97 98 BMI result Body Mass Index 22.7 Labs Results: 09/14/21 07:24 10/07/21 08:17 Imaging Radiology Impressions: ITS Impressions Head CT 09/13/21 12:37 IMPRESSION: No acute intracranial findings. Medications Medications Current Medications Acetaminophen (Acetaminophen 325 Mg Tablet) 650 mg PO Q6H PRN PRN Reason: Fever Or Pain Last Admin: 10/15/21 06:31 Dose: 650 mg Documented by: Al Hydroxide/Mg Hydroxide (Magnesium Hydrox/Alum Hydrox 30 Ml Oral.Susp) 30 ml PO Q6H PRN PRN Reason: Heartburn/Nausea Last Admin: 10/15/21 06:31 Dose: 30 ml Documented by: Apixaban (Apixaban 5 Mg Tablet) 5 mg PO BID [facility] Last Admin: 10/15/21 08:06 Dose: 5 mg Documented by: Calcium Carbonate/Cholecalciferol (Calcium + Vitamin D 250 Mg Tablet) 250 mg PO DAILY [facility] Last Admin: 10/15/21 08:05 Dose: 250 mg Documented by: Docusate Sodium (Docusate Sodium 100 Mg Capsule) 100 mg PO BID [facility] Last Admin: 10/15/21 08:06 Dose: 100 mg Documented by: Fluticasone Propionate (Fluticasone Propionate Nasal 16 Gm [place]) 1 spray NOSTRIL-B DAILY PRN PRN Reason: Allergy Symptoms Gabapentin (Gabapentin 100 Mg Capsule) 200 mg PO TID [facility] Last Admin: 10/15/21 08:07 Dose: 200 mg Documented by: Hydrocortisone (Hydrocortisone 1 % Cream 28.35 Gm Tube) 1 appl TOPICAL BID PRN PRN Reason: rash Lactulose (Lactulose 20 Gm/30 Ml Solution) 10 gm PO BID PRN PRN Reason: constipation Loratadine (Loratadine 10 Mg Tablet) 10 mg PO DAILY [facility] Last Admin: 10/15/21 08:05 Dose: 10 mg Documented by: Lorazepam (Lorazepam 0.5 Mg Tablet) 0.5 mg PO TID [facility] Last Admin: 10/15/21 08:06 Dose: 0.5 mg Documented by: Magnesium Hydroxide (Milk Of Magnesia 30 Ml Oral.Susp) 30 ml PO DAILY PRN PRN Reason: Constipation Melatonin (Melatonin 3 Mg Tablet) 9 mg PO BEDTIME [facility] Last Admin: 10/14/21 19:58 Dose: 9 mg Documented by: Multivitamins/Vitamin C (Multivitamin Tablet) 1 tab PO DAILY [facility] Last Admin: 10/15/21 08:05 Dose: 1 tab Documented by: Nicotine Polacrilex (Nicotine Polacrilex Lozenge 2 Mg Lozenge) 2 mg BUCCAL Q1H PRN PRN Reason: Nicotine Cravings Omeprazole (Omeprazole 20 Mg Capsule.Dr) 20 mg PO BID@0630,1630 [facility] Last Admin: 10/15/21 06:32 Dose: 20 mg Documented by: Quetiapine Fumarate (Quetiapine Fumarate 100 Mg Tablet) 100 mg PO BEDTIME PRN PRN Reason: Insomnia Last Admin: 10/14/21 19:57 Dose: 100 mg Documented by: Quetiapine Fumarate (Quetiapine Fumarate 50 Mg Tablet) 50 mg PO Q4H PRN PRN Reason: anxiety Last Admin: 10/15/21 09:28 Dose: 50 mg Documented by: Quetiapine Fumarate (Quetiapine Fumarate 400 Mg Tablet) 800 mg PO BEDTIME [facility] Last Admin: 10/14/21 19:57 Dose: 800 mg Documented by: Quetiapine Fumarate (Quetiapine Fumarate 100 Mg Tablet) 100 mg PO BID@0900,1500 [facility] Last Admin: 10/15/21 08:06 Dose: 100 mg Documented by: Allergies Allergies Allergy/AdvReac Type Severity Reaction Status Date / Time bee pollen Allergy Severe Anaphylaxis Verified 08/25/21 12:46 levofloxacin [From Levaquin] Allergy Severe Itching Verified 08/25/21 12:46 enoxaparin [From Lovenox] Allergy Intermediate Rash Verified 09/12/21 13:58 Penicillins Allergy Unknown Unknown Verified 08/25/21 12:46 Assessment & Plan Assessment & Plan (1) Acute deep vein thrombosis (DVT) of left tibial vein: Status: Acute Code(s): I82.442 - Acute embolism and thrombosis of left tibial vein Assessment and Plan: 65yo F admitted to inpatient psychiatry;s/p L TKA 08/09/21 who developed a LLE DVT diagnosed 09/05/21 treated with apixaban initially, but then refused PO intake;switched to enoxaparin but then developed a rash;hospitalists consulted for management of DVT; started on Fondaparinux secondary to noncompliance with oral therapies. Now taking orals without incident. Switched to Eliquis. Requested clearance for ECT 1 LLE DVT -excepting Eliquis -will need 3 months of therapy then repeat ultrasound to document clearance -should complaints change can restartFondaparinux 7.5mg SC daily 2. Bipolar disorder - patient is a moderate but acceptable risk for ECT and can proceed as per Dr. Meredith (2) Bipolar 1 disorder: Status: Acute Code(s): F31.9 - Bipolar disorder, unspecified Plan ativan 1 mg TID for recent catatonia decreased to 0.5 TID as of 10/10 as pt has recently improved substantially.? taper off. oxycontin DCed. fondaparinux 7.5 mg SQ daily for clot prophylaxis DCed 10/10 in favor of eliquis PO 5 BID. committed and medications ordered by court 09/20. haldol and ativan IM back-up for med refusal. continues to require regular IMs as of 10/03 due to refusing PO medications.? by 10/10 taking meds all PO. haldol IM back-up increased from 5 mg BID PRN to 7.5 mg BID PRN as of 09/28. ativan back-up increased from 1 mg to 2 mg 09/30. labs 10/07 reassuring re kidney fxn. work toward restoring home psych med regimen.? seroquel changed from 200 TID to 600 QHS as of 10/10. requesting ECT.? referred to [facility] med clearance completed. will need to get ECT added to court order in order to proceed, however. seroquel increased to 800 QHS as of 10/11. seroquel 100 QAM and Q3pm added 10/12 due to ongoing delusions and agitation. ativan 0.5 mg TID reinstated as well 10/12. communicated with gluing machine operator 10/12 to have ECT added to Tx plan. 10/15: Continue current regimen and plans with no changes made today I spent minutes with the patient and/or on the patient floor today, greater than?50% of which was spent counseling/coordinating care. Reason for contiued inpatient stay Substantial Risk for: med/psych decompensation
--- NOTE | 2021-10-15 09:45 | PC.NURSE ---
Awaiting EKG, bead supervisor aware, pt denies chest pain or discomfort at this time.
--- NOTE | 2021-10-15 11:01 | PC.NURSE ---
EKG completed and sent to Dr Hopkins via [employer] system.
[2021-10-15] MEDS: LORazepam 1 MG TABLET PO ×2 (11:29→18:09)
--- NOTE | 2021-10-15 18:46 | PC.NURSE ---
Late entry: Patient declined gait belt throughout the sift.
[2021-10-15 20:32] VITALS: BP 102/61; PULSE 90; RESP 16; TEMP 36.4; O2SAT 96
[2021-10-15] MEDS: QUEtiapine Fumarate 400 MG TABLET 800 MG PO (20:34)
[2021-10-15] MEDS: Melatonin 3 MG TABLET 9 MG PO (20:34)
[2021-10-16] MEDS: Calcium + Vitamin D 250 MG TABLET PO (07:53)
[2021-10-16] MEDS: Apixaban 5 MG TABLET PO ×2 (07:53→20:34)
[2021-10-16] MEDS: Loratadine 10 MG TABLET PO (07:53)
[2021-10-16] MEDS: Docusate Sodium 100 MG CAPSULE PO ×2 (07:54→20:34)
[2021-10-16] MEDS: LORazepam 0.5 MG TABLET PO ×3 (07:54→20:34)
[2021-10-16] MEDS: Multivitamin TABLET 1 TAB PO (07:54)
[2021-10-16] MEDS: Gabapentin 100 MG CAPSULE 200 MG PO (07:55)
[2021-10-16] MEDS: Omeprazole 20 MG CAPSULE.DR PO ×2 (07:55→17:54)
[2021-10-16] MEDS: QUEtiapine Fumarate 100 MG TABLET PO ×2 (08:04→15:26)
[2021-10-16 08:07] VITALS: BP 125/71; PULSE 100; RESP 20; TEMP 35.9; O2SAT 97
--- NOTE | 2021-10-16 10:01 | P.PNPSI_ITS ---
Subjective Subjective Date of Service: 10/16/21 Reason For Visit: Psychosis Subjective Notes: Section 8 Interim History: Patient was seen and discussed in rounds today. She continues to be anxious and paranoid. She has been med compliant but states that at home she took her gabapentin 900 mg all at night and was able to sleep much better. I changed it to that regimen. No other complaints or side effects. She continues on one-to-one observation. Review of Systems Review of Systems Sleep Yes all other systems are reviewed and are negative Mental Status Exam Mental Status Exam Narrative: In today's visit she is alert, oriented and more interactive. Speech is normal. Moderate eye contact. Affect is appropriate and constricted. Moderate anxiety present. Paranoia and suspiciousness present. No SI. Cognitively intact. Judgment is marginal Diagnostics Vital Signs (24Hr): Vital Signs - 24 hr 10/15/21 20:32 10/16/21 08:07 Temperature 97.6 F 96.6 F L Pulse Rate 90 100 Respiratory Rate 16 20 Blood Pressure 102/61 125/71 Pulse Oximetry 96 97 BMI result Body Mass Index 22.7 Labs Results: 09/14/21 07:24 10/07/21 08:17 Imaging Radiology Impressions: ITS Impressions Head CT 09/13/21 12:37 IMPRESSION: No acute intracranial findings. Medications Medications Current Medications Acetaminophen (Acetaminophen 325 Mg Tablet) 650 mg PO Q6H PRN PRN Reason: Fever Or Pain Last Admin: 10/15/21 06:31 Dose: 650 mg Documented by: Al Hydroxide/Mg Hydroxide (Magnesium Hydrox/Alum Hydrox 30 Ml Oral.Susp) 30 ml PO Q6H PRN PRN Reason: Heartburn/Nausea Last Admin: 10/15/21 06:31 Dose: 30 ml Documented by: Apixaban (Apixaban 5 Mg Tablet) 5 mg PO BID [facility] Last Admin: 10/16/21 07:53 Dose: 5 mg Documented by: Calcium Carbonate/Cholecalciferol (Calcium + Vitamin D 250 Mg Tablet) 250 mg PO DAILY [facility] Last Admin: 10/16/21 07:53 Dose: 250 mg Documented by: Docusate Sodium (Docusate Sodium 100 Mg Capsule) 100 mg PO BID [facility] Last Admin: 10/16/21 07:54 Dose: 100 mg Documented by: Fluticasone Propionate (Fluticasone Propionate Nasal 16 Gm [place]) 1 spray NOSTRIL-B DAILY PRN PRN Reason: Allergy Symptoms Gabapentin (Gabapentin 100 Mg Capsule) 200 mg PO TID [facility] Last Admin: 10/16/21 07:55 Dose: 200 mg Documented by: Hydrocortisone (Hydrocortisone 1 % Cream 28.35 Gm Tube) 1 appl TOPICAL BID PRN PRN Reason: rash Lactulose (Lactulose 20 Gm/30 Ml Solution) 10 gm PO BID PRN PRN Reason: constipation Loratadine (Loratadine 10 Mg Tablet) 10 mg PO DAILY [facility] Last Admin: 10/16/21 07:53 Dose: 10 mg Documented by: Lorazepam (Lorazepam 0.5 Mg Tablet) 0.5 mg PO TID [facility] Last Admin: 10/16/21 07:54 Dose: 0.5 mg Documented by: Lorazepam (Lorazepam 1 Mg Tablet) 1 mg PO BID PRN PRN Reason: Severe anxiety Last Admin: 10/15/21 18:09 Dose: 1 mg Documented by: Magnesium Hydroxide (Milk Of Magnesia 30 Ml Oral.Susp) 30 ml PO DAILY PRN PRN Reason: Constipation Melatonin (Melatonin 3 Mg Tablet) 9 mg PO BEDTIME [facility] Last Admin: 10/15/21 20:34 Dose: 9 mg Documented by: Multivitamins/Vitamin C (Multivitamin Tablet) 1 tab PO DAILY [facility] Last Admin: 10/16/21 07:54 Dose: 1 tab Documented by: Nicotine Polacrilex (Nicotine Polacrilex Lozenge 2 Mg Lozenge) 2 mg BUCCAL Q1H PRN PRN Reason: Nicotine Cravings Omeprazole (Omeprazole 20 Mg Capsule.Dr) 20 mg PO BID@0630,1630 [facility] Last Admin: 10/16/21 07:55 Dose: 20 mg Documented by: Quetiapine Fumarate (Quetiapine Fumarate 100 Mg Tablet) 100 mg PO BEDTIME PRN PRN Reason: Insomnia Last Admin: 10/14/21 19:57 Dose: 100 mg Documented by: Quetiapine Fumarate (Quetiapine Fumarate 50 Mg Tablet) 50 mg PO Q4H PRN PRN Reason: anxiety Last Admin: 10/15/21 09:28 Dose: 50 mg Documented by: Quetiapine Fumarate (Quetiapine Fumarate 400 Mg Tablet) 800 mg PO BEDTIME [facility] Last Admin: 10/15/21 20:34 Dose: 800 mg Documented by: Quetiapine Fumarate (Quetiapine Fumarate 100 Mg Tablet) 100 mg PO BID@0900,1500 [facility] Last Admin: 10/16/21 08:04 Dose: 100 mg Documented by: Allergies Allergies Allergy/AdvReac Type Severity Reaction Status Date / Time bee pollen Allergy Severe Anaphylaxis Verified 08/25/21 12:46 levofloxacin [From Levaquin] Allergy Severe Itching Verified 08/25/21 12:46 enoxaparin [From Lovenox] Allergy Intermediate Rash Verified 09/12/21 13:58 Penicillins Allergy Unknown Unknown Verified 08/25/21 12:46 Assessment & Plan Assessment & Plan (1) Acute deep vein thrombosis (DVT) of left tibial vein: Status: Acute Code(s): I82.442 - Acute embolism and thrombosis of left tibial vein Assessment and Plan: 65yo F admitted to inpatient psychiatry;s/p L TKA 08/09/21 who developed a LLE DVT diagnosed 09/05/21 treated with apixaban initially, but then refused PO intake;switched to enoxaparin but then developed a rash;hospitalists consulted for management of DVT; started on Fondaparinux secondary to noncompliance with oral therapies. Now taking orals without incident. Switched to Eliquis. Requested clearance for ECT 1 LLE DVT -excepting Eliquis -will need 3 months of therapy then repeat ultrasound to document clearance -should complaints change can restartFondaparinux 7.5mg SC daily 2. Bipolar disorder - patient is a moderate but acceptable risk for ECT and can proceed as per Dr. Meredith (2) Bipolar 1 disorder: Status: Acute Code(s): F31.9 - Bipolar disorder, unspecified Plan ativan 1 mg TID for recent catatonia decreased to 0.5 TID as of 10/10 as pt has recently improved substantially.? taper off. oxycontin DCed. fondaparinux 7.5 mg SQ daily for clot prophylaxis DCed 10/10 in favor of eliquis PO 5 BID. committed and medications ordered by court 09/20. haldol and ativan IM back-up for med refusal. continues to require regular IMs as of 10/03 due to refusing PO medications.? by 10/10 taking meds all PO. haldol IM back-up increased from 5 mg BID PRN to 7.5 mg BID PRN as of 09/28. ativan back-up increased from 1 mg to 2 mg 09/30. labs 10/07 reassuring re kidney fxn. work toward restoring home psych med regimen.? seroquel changed from 200 TID to 600 QHS as of 10/10. requesting ECT.? referred to bonnie, med clearance completed. will need to get ECT added to court order in order to proceed, however. seroquel increased to 800 QHS as of 10/11. seroquel 100 QAM and Q3pm added 10/12 due to ongoing delusions and agitation. ativan 0.5 mg TID reinstated as well 10/12. communicated with farm operations manager 10/12 to have ECT added to Tx plan. 10/15: Continue current regimen and plans with no changes made today 10/16: Continue current plans and regimen with change of gabapentin to 900 mg at night I spent minutes with the patient and/or on the patient floor today, greater than?50% of which was spent counseling/coordinating care. Patient educated on: medication risk/benefits Reason for contiued inpatient stay Substantial Risk for: med/psych decompensation
[2021-10-16] MEDS: QUEtiapine Fumarate 50 MG TABLET PO ×2 (11:25→15:57)
[2021-10-16] MEDS: LORazepam 1 MG TABLET PO (13:30)
[2021-10-16] MEDS: chlorproMAZINE HCl 25 MG TABLET PO (17:54)
[2021-10-16 20:28] VITALS: BP 112/67; PULSE 95; RESP 16; TEMP 36.3; O2SAT 95
[2021-10-16] MEDS: Gabapentin 300 MG CAPSULE 900 MG PO (20:34)
[2021-10-16] MEDS: QUEtiapine Fumarate 400 MG TABLET 800 MG PO (20:34)
[2021-10-16] MEDS: Melatonin 3 MG TABLET 9 MG PO (20:34)
[2021-10-17] MEDS: Loratadine 10 MG TABLET PO (08:14)
[2021-10-17] MEDS: Calcium + Vitamin D 250 MG TABLET PO (08:14)
[2021-10-17] MEDS: Apixaban 5 MG TABLET PO ×2 (08:15→20:33)
[2021-10-17] MEDS: Omeprazole 20 MG CAPSULE.DR PO ×2 (08:15→18:00)
[2021-10-17] MEDS: LORazepam 0.5 MG TABLET PO ×3 (08:15→20:33)
[2021-10-17] MEDS: QUEtiapine Fumarate 100 MG TABLET PO ×2 (08:15→15:51)
[2021-10-17] MEDS: Multivitamin TABLET 1 TAB PO (08:16)
[2021-10-17] MEDS: Docusate Sodium 100 MG CAPSULE PO ×2 (08:16→20:33)
[2021-10-17 08:27] VITALS: BP 110/76; PULSE 94; RESP 18; TEMP 36.6; O2SAT 96
[2021-10-17] MEDS: chlorproMAZINE HCl 25 MG TABLET PO (10:22)
--- NOTE | 2021-10-17 12:10 | P.PNPSI_ITS ---
Subjective Subjective Date of Service: 10/17/21 Reason For Visit: Psychosis Interim History: Patient reports that she does feel more relaxed however continues to have auditory hallucinations which make comments about other patients saying this one has to go into holding; AH also says bad things though she does not elaborate. Patient said she had ECT 7 years ago and wants it again now. She was on Thorazine 25 mg but that did not relieve auditory hallucinations and agreed to a trial of Haldol as a prn instead. Mental Status Exam Mental Status Exam Narrative: Pt is alert and oriented; behavior is cooperative and calm; dressed in casual attire with adequate hygiene; mood is described as more relaxed but affect anxious; eye contact appropriate; Speech is normal rate, volume and prosody and not pressured; no psychomotor agitation/retardation present; thought process is organized and goal directed; Thought content is on tx, dealing with AH; otherwise pertinent to relevant topics and without any delusional content, paranoid ideations or grandiosity; denies any SI/HI. Bothersome AH; Patients insight and judgment are impaired. Diagnostics Vital Signs (24Hr): Vital Signs - 24 hr 10/16/21 20:28 10/17/21 08:27 Temperature 97.4 F 97.8 F Pulse Rate 95 94 Respiratory Rate 16 18 Blood Pressure 112/67 110/76 Pulse Oximetry 95 96 BMI result Body Mass Index 22.7 Labs Results: 09/14/21 07:24 10/07/21 08:17 Imaging Radiology Impressions: ITS Impressions Head CT 09/13/21 12:37 IMPRESSION: No acute intracranial findings. Medications Medications Current Medications Acetaminophen (Acetaminophen 325 Mg Tablet) 650 mg PO Q6H PRN PRN Reason: Fever Or Pain Last Admin: 10/15/21 06:31 Dose: 650 mg Documented by: Al Hydroxide/Mg Hydroxide (Magnesium Hydrox/Alum Hydrox 30 Ml Oral.Susp) 30 ml PO Q6H PRN PRN Reason: Heartburn/Nausea Last Admin: 10/15/21 06:31 Dose: 30 ml Documented by: Apixaban (Apixaban 5 Mg Tablet) 5 mg PO BID [facility] Last Admin: 10/17/21 08:15 Dose: 5 mg Documented by: Calcium Carbonate/Cholecalciferol (Calcium + Vitamin D 250 Mg Tablet) 250 mg PO DAILY [facility] Last Admin: 10/17/21 08:14 Dose: 250 mg Documented by: Chlorpromazine HCl (Chlorpromazine Hcl 25 Mg Tablet) 25 mg PO Q4H PRN PRN Reason: Hallucinations Last Admin: 10/17/21 10:22 Dose: 25 mg Documented by: Docusate Sodium (Docusate Sodium 100 Mg Capsule) 100 mg PO BID [facility] Last Admin: 10/17/21 08:16 Dose: 100 mg Documented by: Fluticasone Propionate (Fluticasone Propionate Nasal 16 Gm [place]) 1 spray NOSTRIL-B DAILY PRN PRN Reason: Allergy Symptoms Gabapentin (Gabapentin 300 Mg Capsule) 900 mg PO BEDTIME [facility] Last Admin: 10/16/21 20:34 Dose: 900 mg Documented by: Hydrocortisone (Hydrocortisone 1 % Cream 28.35 Gm Tube) 1 appl TOPICAL BID PRN PRN Reason: rash Lactulose (Lactulose 20 Gm/30 Ml Solution) 10 gm PO BID PRN PRN Reason: constipation Loratadine (Loratadine 10 Mg Tablet) 10 mg PO DAILY [facility] Last Admin: 10/17/21 08:14 Dose: 10 mg Documented by: Lorazepam (Lorazepam 0.5 Mg Tablet) 0.5 mg PO TID [facility] Last Admin: 10/17/21 08:15 Dose: 0.5 mg Documented by: Lorazepam (Lorazepam 1 Mg Tablet) 1 mg PO BID PRN PRN Reason: Severe anxiety Last Admin: 10/16/21 13:30 Dose: 1 mg Documented by: Magnesium Hydroxide (Milk Of Magnesia 30 Ml Oral.Susp) 30 ml PO DAILY PRN PRN Reason: Constipation Melatonin (Melatonin 3 Mg Tablet) 9 mg PO BEDTIME [facility] Last Admin: 10/16/21 20:34 Dose: 9 mg Documented by: Multivitamins/Vitamin C (Multivitamin Tablet) 1 tab PO DAILY [facility] Last Admin: 10/17/21 08:16 Dose: 1 tab Documented by: Nicotine Polacrilex (Nicotine Polacrilex Lozenge 2 Mg Lozenge) 2 mg BUCCAL Q1H PRN PRN Reason: Nicotine Cravings Omeprazole (Omeprazole 20 Mg Capsule.Dr) 20 mg PO BID@0630,1630 [facility] Last Admin: 10/17/21 08:15 Dose: 20 mg Documented by: Quetiapine Fumarate (Quetiapine Fumarate 100 Mg Tablet) 100 mg PO BEDTIME PRN PRN Reason: Insomnia Last Admin: 10/14/21 19:57 Dose: 100 mg Documented by: Quetiapine Fumarate (Quetiapine Fumarate 400 Mg Tablet) 800 mg PO BEDTIME [facility] Last Admin: 10/16/21 20:34 Dose: 800 mg Documented by: Quetiapine Fumarate (Quetiapine Fumarate 100 Mg Tablet) 100 mg PO BID@0900,1500 [facility] Last Admin: 10/17/21 08:15 Dose: 100 mg Documented by: Allergies Allergies Allergy/AdvReac Type Severity Reaction Status Date / Time bee pollen Allergy Severe Anaphylaxis Verified 08/25/21 12:46 levofloxacin [From Levaquin] Allergy Severe Itching Verified 08/25/21 12:46 enoxaparin [From Lovenox] Allergy Intermediate Rash Verified 09/12/21 13:58 Penicillins Allergy Unknown Unknown Verified 08/25/21 12:46 Assessment & Plan Assessment & Plan (1) Acute deep vein thrombosis (DVT) of left tibial vein: Status: Acute Code(s): I82.442 - Acute embolism and thrombosis of left tibial vein Assessment and Plan: 65yo F admitted to inpatient psychiatry;s/p L TKA 08/09/21 who developed a LLE DVT diagnosed 09/05/21 treated with apixaban initially, but then refused PO intake;switched to enoxaparin but then developed a rash;hospitalists consulted for management of DVT; started on Fondaparinux secondary to noncompliance with oral therapies. Now taking orals without incident. Switched to Eliquis. Req uested clearance for ECT 1 LLE DVT -excepting Eliquis -will need 3 months of therapy then repeat ultrasound to document clearance -should complaints change can restartFondaparinux 7.5mg SC daily 2. Bipolar disorder - patient is a moderate but acceptable risk for ECT and can proceed as per Dr. Meredith (2) Bipolar 1 disorder: Status: Acute Code(s): F31.9 - Bipolar disorder, unspecified Plan ativan 1 mg TID for recent catatonia decreased to 0.5 TID as of 10/10 as pt has recently improved substantially.? taper off. oxycontin DCed. fondaparinux 7.5 mg SQ daily for clot prophylaxis DCed 10/10 in favor of eliquis PO 5 BID. committed and medications ordered by court 09/20. haldol and ativan IM back-up for med refusal. continues to require regular IMs as of 10/03 due to refusing PO medications.? by 10/10 taking meds all PO. haldol IM back-up increased from 5 mg BID PRN to 7.5 mg BID PRN as of 09/28. ativan back-up increased from 1 mg to 2 mg 09/30. labs 10/07 reassuring re kidney fxn. work toward restoring home psych med regimen.? seroquel changed from 200 TID to 600 QHS as of 10/10. requesting ECT.? referred to mandy nicole clearance completed. will need to get ECT added to court order in order to proceed, however. seroquel increased to 800 QHS as of 10/11. seroquel 100 QAM and Q3pm added 10/12 due to ongoing delusions and agitation. ativan 0.5 mg TID reinstated as well 10/12. communicated with yield improvement engineer 10/12 to have ECT added to Tx plan. 10/15: Continue current regimen and plans with no changes made today 10/16: Continue current plans and regimen with change of gabapentin to 900 mg at night 10/17 Continues to complain of auditory hallucinations which are bothersome discontinued Thorazine p.r.n. since not effective Will start Haldol 5 mg p.r.n. to see if can help with AH; patient already on low potency antipsychotic Seroquel; will try a higher potency medication to see if more effective as a prn I spent minutes with the patient and/or on the patient floor today, greater than?50% of which was spent counseling/coordinating care. Patient educated on: medication risk/benefits Informed Consent: understands Reason for contiued inpatient stay Substantial Risk for: rapid decompensation
[2021-10-17] MEDS: HaloperidoL 1 MG TABLET 2 MG PO ×2 (12:38→14:17)
--- NOTE | 2021-10-17 12:41 | PC.NURSE ---
Patient continues to report AH, fears of people talking about her, fears that people are going to harm her. Patient is able to approach staff to let them know what she is experiencing. Gait steady, patient continues to eat and drink without problem. Reviewed w/ Dr. Garza. PRN changed to Haldol, which patient immediately requested and was given. Gait steady, 1:1 for fall prevention discontinued.
[2021-10-17] MEDS: LORazepam 1 MG TABLET PO (13:35)
[2021-10-17] MEDS: Gabapentin 300 MG CAPSULE 900 MG PO (20:32)
[2021-10-17] MEDS: Melatonin 3 MG TABLET 9 MG PO (20:32)
[2021-10-17] MEDS: QUEtiapine Fumarate 400 MG TABLET 800 MG PO (20:33)
[2021-10-17 20:38] VITALS: BP 113/63; PULSE 106; RESP 12; TEMP 36.8; O2SAT 94
[2021-10-17] MEDS: HaloperidoL 5 MG TABLET PO (20:42)
[2021-10-18] MEDS: Omeprazole 20 MG CAPSULE.DR PO ×2 (06:18→16:28)
[2021-10-18] MEDS: LORazepam 1 MG TABLET PO (06:18)
[2021-10-18] MEDS: HaloperidoL 5 MG TABLET PO ×2 (06:18→20:12)
[2021-10-18 08:00] VITALS: BP 111/72; PULSE 98; RESP 18; TEMP 36.7; O2SAT 96
[2021-10-18] MEDS: Docusate Sodium 100 MG CAPSULE PO ×2 (08:21→20:13)
[2021-10-18] MEDS: Multivitamin TABLET 1 TAB PO (08:22)
[2021-10-18] MEDS: LORazepam 0.5 MG TABLET PO ×2 (08:22→14:09)
[2021-10-18] MEDS: QUEtiapine Fumarate 100 MG TABLET PO ×2 (08:22→14:09)
[2021-10-18] MEDS: Calcium + Vitamin D 250 MG TABLET PO (08:23)
[2021-10-18] MEDS: Apixaban 5 MG TABLET PO ×2 (08:23→20:13)
[2021-10-18] MEDS: Loratadine 10 MG TABLET PO (08:23)
--- NOTE | 2021-10-18 17:40 | HO.PSYCHPN ---
Subjective Subjective Date of Service: 10/18/21 Reason For Visit: Psychosis Interim History: pt found sitting on her bed in her room. calm, cooperative, pleasant. states she has depressed mood and very much wants ECT. anxious that it will not happen for her. apparently ECT scheduled for tomorrow. per staff, haldol more helpful than thorazine. off of 1:1. steady gait. pleasant. Mental Status Exam Mental Status Exam Narrative: Pt is alert and oriented; behavior is cooperative and calm; dressed in casual attire with adequate hygiene; affect anxious; eye contact appropriate; Speech is normal rate, volume and prosody and not pressured; no psychomotor agitation/retardation present; thought process is organized and goal directed; Thought content is on tx, dealing with AH; otherwise pertinent to relevant topics and without any delusional content, paranoid ideations or grandiosity; denies any SI/HI. Bothersome AH; Patients insight and judgment are impaired. Diagnostics Vital Signs (24Hr): Vital Signs - 24 hr 10/17/21 20:38 10/18/21 08:00 Temperature 98.3 F 98.1 F Pulse Rate 106 H 98 Respiratory Rate 12 18 Blood Pressure 113/63 111/72 Pulse Oximetry 94 96 BMI result Body Mass Index 22.7 Labs Results: 09/14/21 07:24 10/07/21 08:17 Imaging Radiology Impressions: ITS Impressions Head CT 09/13/21 12:37 IMPRESSION: No acute intracranial findings. Medications Medications Current Medications Acetaminophen (Acetaminophen 325 Mg Tablet) 650 mg PO Q6H PRN PRN Reason: Fever Or Pain Last Admin: 10/15/21 06:31 Dose: 650 mg Documented by: Al Hydroxide/Mg Hydroxide (Magnesium Hydrox/Alum Hydrox 30 Ml Oral.Susp) 30 ml PO Q6H PRN PRN Reason: Heartburn/Nausea Last Admin: 10/15/21 06:31 Dose: 30 ml Documented by: Apixaban (Apixaban 5 Mg Tablet) 5 mg PO BID [facility] Last Admin: 10/18/21 08:23 Dose: 5 mg Documented by: Calcium Carbonate/Cholecalciferol (Calcium + Vitamin D 250 Mg Tablet) 250 mg PO DAILY [facility] Last Admin: 10/18/21 08:23 Dose: 250 mg Documented by: Docusate Sodium (Docusate Sodium 100 Mg Capsule) 100 mg PO BID [facility] Last Admin: 10/18/21 08:21 Dose: 100 mg Documented by: Fluticasone Propionate (Fluticasone Propionate Nasal 16 Gm [place]) 1 spray NOSTRIL-B DAILY PRN PRN Reason: Allergy Symptoms Gabapentin (Gabapentin 300 Mg Capsule) 900 mg PO BEDTIME [facility] Last Admin: 10/17/21 20:32 Dose: 900 mg Documented by: Haloperidol (Haloperidol 5 Mg Tablet) 5 mg PO Q6H PRN PRN Reason: AH Last Admin: 10/18/21 06:18 Dose: 5 mg Documented by: Hydrocortisone (Hydrocortisone 1 % Cream 28.35 Gm Tube) 1 appl TOPICAL BID PRN PRN Reason: rash Lactulose (Lactulose 20 Gm/30 Ml Solution) 10 gm PO BID PRN PRN Reason: constipation Loratadine (Loratadine 10 Mg Tablet) 10 mg PO DAILY [facility] Last Admin: 10/18/21 08:23 Dose: 10 mg Documented by: Lorazepam (Lorazepam 0.5 Mg Tablet) 0.5 mg PO TID [facility] Last Admin: 10/18/21 14:09 Dose: 0.5 mg Documented by: Lorazepam (Lorazepam 1 Mg Tablet) 1 mg PO BID PRN PRN Reason: Severe anxiety Last Admin: 10/18/21 06:18 Dose: 1 mg Documented by: Magnesium Hydroxide (Milk Of Magnesia 30 Ml Oral.Susp) 30 ml PO DAILY PRN PRN Reason: Constipation Melatonin (Melatonin 3 Mg Tablet) 9 mg PO BEDTIME [facility] Last Admin: 10/17/21 20:32 Dose: 9 mg Documented by: Multivitamins/Vitamin C (Multivitamin Tablet) 1 tab PO DAILY [facility] Last Admin: 10/18/21 08:22 Dose: 1 tab Documented by: Nicotine Polacrilex (Nicotine Polacrilex Lozenge 2 Mg Lozenge) 2 mg BUCCAL Q1H PRN PRN Reason: Nicotine Cravings Omeprazole (Omeprazole 20 Mg Capsule.Dr) 20 mg PO BID@0630,1630 [facility] Last Admin: 10/18/21 16:28 Dose: 20 mg Documented by: Quetiapine Fumarate (Quetiapine Fumarate 100 Mg Tablet) 100 mg PO BEDTIME PRN PRN Reason: Insomnia Last Admin: 10/14/21 19:57 Dose: 100 mg Documented by: Quetiapine Fumarate (Quetiapine Fumarate 400 Mg Tablet) 800 mg PO BEDTIME [facility] Last Admin: 10/17/21 20:33 Dose: 800 mg Documented by: Quetiapine Fumarate (Quetiapine Fumarate 100 Mg Tablet) 100 mg PO BID@0900,1500 [facility] Last Admin: 10/18/21 14:09 Dose: 100 mg Documented by: Allergies Allergies Allergy/AdvReac Type Severity Reaction Status Date / Time bee pollen Allergy Severe Anaphylaxis Verified 08/25/21 12:46 levofloxacin [From Levaquin] Allergy Severe Itching Verified 08/25/21 12:46 enoxaparin [From Lovenox] Allergy Intermediate Rash Verified 09/12/21 13:58 Penicillins Allergy Unknown Unknown Verified 08/25/21 12:46 Assessment & Plan Assessment & Plan (1) Acute deep vein thrombosis (DVT) of left tibial vein: Status: Acute Code(s): I82.442 - Acute embolism and thrombosis of left tibial vein Assessment and Plan: 65yo F admitted to inpatient psychiatry;s/p L TKA 08/09/21 who developed a LLE DVT diagnosed 09/05/21 treated with apixaban initially, but then refused PO intake;switched to enoxaparin but then developed a rash;hospitalists consulted for management of DVT; started on Fondaparinux secondary to noncompliance with oral therapies. Now taking orals without incident. Switched to Eliquis. Requested clearance for ECT 1 LLE DVT -excepting Eliquis -will need 3 months of therapy then repeat ultrasound to document clearance -should complaints change can restartFondaparinux 7.5mg SC daily 2. Bipolar disorder - patient is a moderate but acceptable risk for ECT and can proceed as per Dr. Meredith (2) Bipolar 1 disorder: Status: Acute Code(s): F31.9 - Bipolar disorder, unspecified Plan ativan 1 mg TID for recent catatonia decreased to 0.5 TID as of 10/10 as pt has recently improved substantially.? taper off. oxycontin DCed. fondaparinux 7.5 mg SQ daily for clot prophylaxis DCed 10/10 in favor of eliquis PO 5 BID. committed and medications ordered by court 09/20. haldol and ativan IM back-up for med refusal. continues to require regular IMs as of 10/03 due to refusing PO medications.? by 10/10 taking meds all PO. haldol IM back-up increased from 5 mg BID PRN to 7.5 mg BID PRN as of 09/28. ativan back-up increased from 1 mg to 2 mg 09/30. labs 10/07 reassuring re kidney fxn. work toward restoring home psych med regimen.? seroquel changed from 200 TID to 600 QHS as of 10/10. requesting ECT.? referred to mandy nicole clearance completed. will need to get ECT added to court order in order to proceed, however. seroquel increased to 800 QHS as of 10/11. seroquel 100 QAM and Q3pm added 10/12 due to ongoing delusions and agitation. ativan 0.5 mg TID reinstated as well 10/12. communicated with acid maker 10/12 to have ECT added to Tx plan. 10/15: Continue current regimen and plans with no changes made today 10/16: Continue current plans and regimen with change of gabapentin to 900 mg at night 10/17 Continues to complain of auditory hallucinations which are bothersome discontinued Thorazine p.r.n. since not effective Will start Haldol 5 mg p.r.n. to see if can help with AH; patient already on low potency antipsychotic Seroquel; will try a higher potency medication to see if more effective as a prn 10/18: ECT to start tomorrow. NPO after MN. I spent ___35___ minutes with the patient and/or on the patient floor today, greater than?50% of which was spent counseling/coordinating care. Reason for contiued inpatient stay Substantial Risk for: inability to function and rapid decompensation
[2021-10-18 18:00] VITALS: BP 112/62; PULSE 94; RESP 16; TEMP 36.7; O2SAT 96
[2021-10-18] MEDS: Melatonin 3 MG TABLET 9 MG PO (20:12)
[2021-10-18] MEDS: Gabapentin 300 MG CAPSULE 900 MG PO (20:12)
[2021-10-18] MEDS: QUEtiapine Fumarate 400 MG TABLET 800 MG PO (20:12)
[2021-10-18 20:22] VITALS: BP 109/57; PULSE 98; RESP 14; TEMP 36.7; O2SAT 96
[2021-10-19] VITALS (11 sets, daily range): BP systolic 100–167; BP diastolic 62–94; PULSE 88–109; RESP 14–20; TEMP 36.2–37.5; O2SAT 93–96
--- NOTE | 2021-10-19 | ECG_ITS ---
Test Reason : chest pain Blood Pressure : / mmHG Vent. Rate : 097 BPM Atrial Rate : 097 BPM P-R Int : 134 ms QRS Dur : 072 ms QT Int : 360 ms P-R-T Axes : 048 043 055 degrees QTc Int : 457 ms Normal sinus rhythm Normal ECG When compared with ECG of 15-OCT-2021 10:46, Left posterior fascicular block is no longer Present Criteria for Inferior infarct are no longer Present T wave inversion no longer evident in Inferior leads T wave inversion no longer evident in Lateral leads Referred By: Inocencia Morrison Electronically Signed By:CHARU SCHULER MD
[2021-10-19] MEDS: QUEtiapine Fumarate 100 MG TABLET PO ×3 (10:37→14:56)
--- NOTE | 2021-10-19 12:11 | MHC.CLN ---
F/U DIET=REGULAR. NO SUPPLEMENTS PER PATIENT PREFERENCE. DID NOT LIKE ENSURE OR MAGIC CUP. INTAKE/APPETITE APPEAR TO BE IMPROVED. WEIGHT=64 KG, SHOWING FAVORABLE WEIGHT GAIN SINCE . STARTING ECT TODAY. MONITOR INTAKE, WEIGHTS, AND LABS. RD TO FOLLOW WEEKLY.
--- NOTE | 2021-10-19 12:41 | HO.ANESPROP2 ---
HPI - Anesthesia Eval Consult details Narrative: Bipolar 1, VITO PMFSH Active Problems Active Problems: All Active Problems (Updated 09/16/21 @ 10:21 by Carmen Pineda MD) Hypercalcemia (Acute) Hypernatremia (Acute) Diffuse papular rash (Acute) VITO (generalized anxiety disorder) (Acute) Osteopenia (Acute) Murmur, cardiac (Acute) Insomnia (Acute) GERD (gastroesophageal reflux disease) (Acute) Bipolar 1 disorder (Acute) Anxiety (Acute) Acute deep vein thrombosis (DVT) of left tibial vein (Acute) Status post total knee replacement, left (Acute) Varus deformity of knee (Acute) Osteoarthritis of left knee (Acute) Past Medical History Medical History Anxiety Bipolar 1 disorder Constipation GERD (gastroesophageal reflux disease) History of electroconvulsive therapy Hx of skin cancer, basal cell Hx of thyroid nodule Insomnia Murmur, cardiac Osteopenia Seasonal allergies Family History Family history of problems with anesthesia: No Surgical History Surgical History H/O elbow surgery History of back surgery Hx of colonoscopy History of Problems with Anesthesia: No Social History Social History Housing: Assisted Living Facility Are you a primary home care associate to a significant other at home: No Do you presently have visiting nurse or other home services: Yes ([employer] 3 hours once a week) Unable to assess alcohol history related to: Unable to respond Patient Tobacco Use Status: Former Tobacco user Quit Date: 06/20/2021 cigarettes Tobacco use type: Cigarette Years Smoked: 30+, now vapes Use of substances other than those prescribed or required for medical reasons: Unknown Currently Displaying Signs/Symptoms of Drug Intoxication Withdrawal: No Spiritual Healthcare Practices: Unclear. Patient remained silent, unable to participate in assessment. Moravian Healthcare Practices: Unclear. Patient remained silent, unable to participate in assessment. Cultural Healthcare Practices: Unclear. Patient remained silent, unable to participate in assessment. 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 presenting disorganized behavior when being interviewed. Meds Allergies Allergy/AdvReac Type Severity Reaction Status Date / Time bee pollen Allergy Severe Anaphylaxis Verified 08/25/21 12:46 levofloxacin [From Levaquin] Allergy Severe Itching Verified 08/25/21 12:46 enoxaparin [From Lovenox] Allergy Intermediate Rash Verified 09/12/21 13:58 Penicillins Allergy Unknown Unknown Verified 08/25/21 12:46 Active Medications: Current Medications Acetaminophen (Acetaminophen 325 Mg Tablet) 650 mg PO Q6H PRN PRN Reason: Fever Or Pain Last Admin: 10/15/21 06:31 Dose: 650 mg Documented by: Al Hydroxide/Mg Hydroxide (Magnesium Hydrox/Alum Hydrox 30 Ml Oral.Susp) 30 ml PO Q6H PRN PRN Reason: Heartburn/Nausea Last Admin: 10/15/21 06:31 Dose: 30 ml Documented by: Apixaban (Apixaban 5 Mg Tablet) 5 mg PO BID [facility] Last Admin: 10/18/21 20:13 Dose: 5 mg Documented by: Calcium Carbonate/Cholecalciferol (Calcium + Vitamin D 250 Mg Tablet) 250 mg PO DAILY [facility] Last Admin: 10/18/21 08:23 Dose: 250 mg Documented by: Docusate Sodium (Docusate Sodium 100 Mg Capsule) 100 mg PO BID [facility] Last Admin: 10/18/21 20:13 Dose: 100 mg Documented by: Fluticasone Propionate (Fluticasone Propionate Nasal 16 Gm Braman) 1 spray NOSTRIL-B DAILY PRN PRN Reason: Allergy Symptoms Gabapentin (Gabapentin 300 Mg Capsule) 900 mg PO BEDTIME [facility] Last Admin: 10/18/21 20:12 Dose: 900 mg Documented by: Haloperidol (Haloperidol 5 Mg Tablet) 5 mg PO Q6H PRN PRN Reason: AH Last Admin: 10/18/21 20:12 Dose: 5 mg Documented by: Hydrocortisone (Hydrocortisone 1 % Cream 28.35 Gm Tube) 1 appl TOPICAL BID PRN PRN Reason: rash Lactulose (Lactulose 20 Gm/30 Ml Solution) 10 gm PO BID PRN PRN Reason: constipation Loratadine (Loratadine 10 Mg Tablet) 10 mg PO DAILY [facility] Last Admin: 10/18/21 08:23 Dose: 10 mg Documented by: Lorazepam (Lorazepam 1 Mg Tablet) 1 mg PO BID PRN PRN Reason: Severe anxiety Last Admin: 10/18/21 06:18 Dose: 1 mg Documented by: Magnesium Hydroxide (Milk Of Magnesia 30 Ml Oral.Susp) 30 ml PO DAILY PRN PRN Reason: Constipation Melatonin (Melatonin 3 Mg Tablet) 9 mg PO BEDTIME [facility] Last Admin: 10/18/21 20:12 Dose: 9 mg Documented by: Multivitamins/Vitamin C (Multivitamin Tablet) 1 tab PO DAILY [facility] Last Admin: 10/18/21 08:22 Dose: 1 tab Documented by: Nicotine Polacrilex (Nicotine Polacrilex Lozenge 2 Mg Lozenge) 2 mg BUCCAL Q1H PRN PRN Reason: Nicotine Cravings Omeprazole (Omeprazole 20 Mg Capsule.Dr) 20 mg PO BID@0630,1630 [facility] Last Admin: 10/18/21 16:28 Dose: 20 mg Documented by: Quetiapine Fumarate (Quetiapine Fumarate 100 Mg Tablet) 100 mg PO BEDTIME PRN PRN Reason: Insomnia Last Admin: 10/14/21 19:57 Dose: 100 mg Documented by: Quetiapine Fumarate (Quetiapine Fumarate 400 Mg Tablet) 800 mg PO BEDTIME [facility] Last Admin: 10/18/21 20:12 Dose: 800 mg Documented by: Quetiapine Fumarate (Quetiapine Fumarate 100 Mg Tablet) 100 mg PO BID@0900,1500 [facility] Last Admin: 10/19/21 10:37 Dose: 100 mg Documented by: Home Medications Medication Instructions Recorded Confirmed Last Taken Type omeprazole 20 mg capsule,delayed 20 mg PO BID 05/09/21 09/08/21 08/09/21 History release biotin 5,000 mcg sublingual tablet 5,000 mcg SUBLINGUAL DAILY 07/21/21 09/08/21 Unknown History calcium carbonate 600 mg-vitamin 1 tab PO DAILY #0 07/21/21 09/08/21 Unknown History D3 5 mcg (200 unit) tablet docusate sodium 100 mg capsule 1 cap PO BID 07/21/21 09/08/21 Unknown History fluticasone propionate 50 1 spray INTRANASAL DAILY PRN 07/21/21 09/08/21 Unknown History mcg/actuation nasal spray,suspension gabapentin 400 mg capsule 800 mg PO BEDTIME 07/21/21 09/08/21 Unknown History loratadine 10 mg tablet (Claritin) 10 mg PO DAILY PRN 07/21/21 09/08/21 Unknown History melatonin 5 mg tablet 10 mg PO BEDTIME 07/21/21 09/08/21 08/09/21 History multivitamin 1 tab PO DAILY 07/21/21 09/08/21 Unknown History quetiapine 400 mg tablet 800 mg PO BEDTIME 07/21/21 09/08/21 Unknown History lactulose 10 gram/15 mL oral 15 ml PO BID PRN 09/05/21 09/08/21 Unknown History solution lorazepam 0.5 mg tablet 1 tab PO BEDTIME PRN 09/05/21 09/08/21 Unknown History quetiapine 100 mg tablet 100 mg PO BEDTIME PRN 09/05/21 09/08/21 Unknown History acetaminophen 325 mg tablet 650 mg PO Q6H PRN 09/08/21 09/08/21 Unknown History apixaban 5 mg (74 tabs) tablets in 10 mg PO BID 09/08/21 09/08/21 Unknown History a dose pack ([employer] DVT-PE Treat 30D Start) apixaban 5 mg tablet 5 mg PO BID 09/08/21 09/08/21 Unknown History lorazepam 0.5 mg tablet (Ativan) 0.5 mg PO Q6H PRN 09/08/21 09/08/21 Unknown History oxycodone 10 mg tablet,crush 10 mg PO Q12H 09/08/21 09/08/21 Unknown History resistant,extended release 12 hr (OxyContin) oxycodone 5 mg tablet 5 mg PO Q4H PRN 09/08/21 09/08/21 Unknown History Exam Exam Date and Time: October 19, 2021 1241 Height,Weight and Vital Signs: Height 5 ft 6 in Weight 64 kg Last Vital Signs Temp 98 F 10/19/21 12:21 Pulse 96 10/19/21 12:21 Resp 20 10/19/21 12:21 BP 116/70 10/19/21 12:21 Pulse Ox 95 10/19/21 12:21 Pertinent Lab Results Pertinent Lab Results: Laboratory Tests 09/08/21 09/08/21 09/08/21 12:52 12:52 12:52 WBC 8.9 RBC 4.18 L Hgb 12.5 Hct 38.3 MCV 91.6 MCH 29.9 MCHC 32.6 RDW 12.9 Plt Count 249 MPV 8.7 L Immature Gran % (Auto) 0.5 H Neut % (Auto) 70.4 Lymph % (Auto) 17.2 L [place] % (Auto) 10.7 Eos % (Auto) 0.6 Baso % (Auto) 0.6 Lymph # (Auto) 1.5 [place] # (Auto) 1.0 Eos # (Auto) 0.1 Baso # (Auto) 0.1 Abs Immat Gran (auto) 0.04 H Absolute Neuts (auto) 6.3 Absolute Nucleated RBC 0.000 Nucleated RBC % (auto) 0.0 ESR PT INR APTT Sodium 136 Potassium 3.7 Chloride 103 Carbon Dioxide 23 Anion Gap 14 BUN 16 Creatinine 0.77 Estim Creat Clear Calc 75.8 Estimated GFR > 60 Random Glucose 112 Calcium 9.5 Phosphorus Magnesium Total Bilirubin 0.4 Direct Bilirubin < 0.2 AST 18 ALT 11 Alkaline Phosphatase 134 H C-Reactive Protein Total Protein 7.2 Albumin 4.0 Urine Color Urine Appearance Urine pH Ur Specific [place] Urine Protein Urine Glucose (UA) Urine Ketones Urine Blood Urine Nitrite Ur Leukocyte Esterase Urine RBC Urine WBC Ur Squamous Epith Cells Urine Bacteria Urine Opiates Screen Urine Fentanyl Screen Ur Barbiturates Screen Ur Phencyclidine Scrn Ur Amphetamines Screen U Benzodiazepines Scrn Urine Cocaine Screen U Marijuana (THC) Screen Ethyl Alcohol < 10 COVID-19 ([facility]) COVID-19 Clin Com 09/08/21 09/08/21 09/08/21 12:53 20:44 20:44 WBC RBC Hgb Hct MCV MCH MCHC RDW Plt Count MPV Immature Gran % (Auto) Neut % (Auto) Lymph % (Auto) [place] % (Auto) Eos % (Auto) Baso % (Auto) Lymph # (Auto) [place] # (Auto) Eos # (Auto) Baso # (Auto) Abs Immat Gran (auto) Absolute Neuts (auto) Absolute Nucleated RBC Nucleated RBC % (auto) ESR PT INR APTT Sodium Potassium Chloride Carbon Dioxide Anion Gap BUN Creatinine Estim Creat Clear Calc Estimated GFR Random Glucose Calcium Phosphorus Magnesium Total Bilirubin Direct Bilirubin AST ALT Alkaline Phosphatase C-Reactive Protein Total Protein Albumin Urine Color YELLOW Urine Appearance HAZY Urine pH 5.5 Ur Specific [place] >= 1.030 H Urine Protein NEG Urine Glucose (UA) NEG Urine Ketones 5 Urine Blood 1+ H Urine Nitrite NEG Ur Leukocyte Esterase NEG Urine RBC 0-2 Urine WBC 1-4 Ur Squamous Epith Cells TRACE Urine Bacteria 4+ Urine Opiates Screen POSITIVE H Urine Fentanyl Screen Not Detected Ur Barbiturates Screen Not Detected Ur Phencyclidine Scrn Not Detected Ur Amphetamines Screen Not Detected U Benzodiazepines Scrn Not Detected Urine Cocaine Screen Not Detected U Marijuana (THC) Screen Not Detected Ethyl Alcohol COVID-19 ([facility]) Negative COVID-19 Clin Com See Note 09/09/21 09/09/21 09/09/21 09:23 21:12 21:12 WBC 9.2 RBC 4.33 Hgb 13.0 Hct 39.1 MCV 90.3 MCH 30.0 MCHC 33.2 RDW 12.5 Plt Count 261 MPV 8.8 L Immature Gran % (Auto) Neut % (Auto) Lymph % (Auto) [place] % (Auto) Eos % (Auto) Baso % (Auto) Lymph # (Auto) [place] # (Auto) Eos # (Auto) Baso # (Auto) Abs Immat Gran (auto) Absolute Neuts (auto) Absolute Nucleated RBC 0.000 Nucleated RBC % (auto) 0.0 ESR PT 13.8 H INR 1.2 H APTT 36.9 Sodium Potassium Chloride Carbon Dioxide Anion Gap BUN Creatinine Estim Creat Clear Calc Estimated GFR Random Glucose Calcium Phosphorus Magnesium Total Bilirubin Direct Bilirubin AST ALT Alkaline Phosphatase C-Reactive Protein Total Protein Albumin Urine Color Urine Appearance Urine pH Ur Specific [place] Urine Protein Urine Glucose (UA) Urine Ketones Urine Blood Urine Nitrite Ur Leukocyte Esterase Urine RBC Urine WBC Ur Squamous Epith Cells Urine Bacteria Urine Opiates Screen Urine Fentanyl Screen Ur Barbiturates Screen Ur Phencyclidine Scrn Ur Amphetamines Screen U Benzodiazepines Scrn Urine Cocaine Screen U Marijuana (THC) Screen Ethyl Alcohol COVID-19 ([facility]) Negative COVID-19 Clin Com See Note 09/10/21 09/10/21 09/10/21 15:18 15:18 15:18 WBC 7.8 RBC 4.48 Hgb 13.5 Hct 40.8 MCV 91.1 MCH 30.1 MCHC 33.1 RDW 12.8 Plt Count 277 MPV 8.9 L Immature Gran % (Auto) Neut % (Auto) Lymph % (Auto) [place] % (Auto) Eos % (Auto) Baso % (Auto) Lymph # (Auto) [place] # (Auto) Eos # (Auto) Baso # (Auto) Abs Immat Gran (auto) Absolute Neuts (auto) Absolute Nucleated RBC 0.000 Nucleated RBC % (auto) 0.0 ESR PT 14.3 H INR 1.3 H APTT Sodium 139 Potassium 4.1 Chloride 105 Carbon Dioxide 24 Anion Gap 14 BUN 31 H D Creatinine 0.77 Estim Creat Clear Calc 75.8 Estimated GFR > 60 Random Glucose 98 Calcium 10.2 D Phosphorus Magnesium Total Bilirubin 0.5 Direct Bilirubin AST 22 ALT 13 Alkaline Phosphatase 144 H C-Reactive Protein Total Protein 7.8 Albumin 4.3 Urine Color Urine Appearance Urine pH Ur Specific [place] Urine Protein Urine Glucose (UA) Urine Ketones Urine Blood Urine Nitrite Ur Leukocyte Esterase Urine RBC Urine WBC Ur Squamous Epith Cells Urine Bacteria Urine Opiates Screen Urine Fentanyl Screen Ur Barbiturates Screen Ur Phencyclidine Scrn Ur Amphetamines Screen U Benzodiazepines Scrn Urine Cocaine Screen U Marijuana (THC) Screen Ethyl Alcohol COVID-19 ([facility]) COVID-19 [employer] Com 09/12/21 09/12/21 09/12/21 12:24 12:24 12:24 WBC 10.1 RBC 5.06 Hgb 15.4 Hct 47.0 MCV 92.9 MCH 30.4 MCHC 32.8 RDW 13.2 Plt Count 315 MPV 9.2 L Immature Gran % (Auto) 0.3 Neut % (Auto) 86.1 H Lymph % (Auto) 8.2 L [place] % (Auto) 4.9 Eos % (Auto) 0.4 Baso % (Auto) 0.1 Lymph # (Auto) 0.8 L [place] # (Auto) 0.5 Eos # (Auto) 0.0 Baso # (Auto) 0.0 Abs Immat Gran (auto) 0.03 Absolute Neuts (auto) 8.7 H Absolute Nucleated RBC 0.000 Nucleated RBC % (auto) 0.0 ESR 23 H PT INR APTT Sodium 147 H Potassium 4.2 Chloride 110 H Carbon Dioxide 21 L Anion Gap 20 BUN 55 H D Creatinine 1.09 Estim Creat Clear Calc 53.6 Estimated GFR 51 Random Glucose 145 H Calcium 10.9 H D Phosphorus Magnesium Total Bilirubin Direct Bilirubin AST ALT Alkaline Phosphatase C-Reactive Protein 0.81 H Total Protein Albumin Urine Color Urine Appearance Urine pH Ur Specific [place] Urine Protein Urine Glucose (UA) Urine Ketones Urine Blood Urine Nitrite Ur Leukocyte Esterase Urine RBC Urine WBC Ur Squamous Epith Cells Urine Bacteria Urine Opiates Screen Urine Fentanyl Screen Ur Barbiturates Screen Ur Phencyclidine Scrn Ur Amphetamines Screen U Benzodiazepines Scrn Urine Cocaine Screen U Marijuana (THC) Screen Ethyl Alcohol COVID-19 ([facility]) COVID-19 [employer] Com 09/13/21 09/14/21 09/14/21 19:14 07:24 07:24 WBC 8.1 RBC 4.07 L Hgb 12.1 D Hct 37.3 D MCV 91.6 MCH 29.7 MCHC 32.4 RDW 12.7 Plt Count 211 D MPV 9.1 L Immature Gran % (Auto) Neut % (Auto) Lymph % (Auto) [place] % (Auto) Eos % (Auto) Baso % (Auto) Lymph # (Auto) [place] # (Auto) Eos # (Auto) Baso # (Auto) Abs Immat Gran (auto) Absolute Neuts (auto) Absolute Nucleated RBC 0.000 Nucleated RBC % (auto) 0.0 ESR PT INR APTT Sodium 139 139 Potassium 3.7 3.8 Chloride 105 106 Carbon Dioxide 25 26 Anion Gap 13 11 L BUN 30 H 24 H Creatinine 0.72 0.66 Estim Creat Clear Calc 81.1 88.5 Estimated GFR > 60 > 60 Random Glucose 107 107 Calcium 9.3 D 9.3 Phosphorus Magnesium Total Bilirubin Direct Bilirubin AST ALT Alkaline Phosphatase C-Reactive Protein Total Protein Albumin Urine Color Urine Appearance Urine pH Ur Specific [place] Urine Protein Urine Glucose (UA) Urine Ketones Urine Blood Urine Nitrite Ur Leukocyte Esterase Urine RBC Urine WBC Ur Squamous Epith Cells Urine Bacteria Urine Opiates Screen Urine Fentanyl Screen Ur Barbiturates Screen Ur Phencyclidine Scrn Ur Amphetamines Screen U Benzodiazepines Scrn Urine Cocaine Screen U Marijuana (THC) Screen Ethyl Alcohol COVID-19 ([facility]) COVID-19 [employer] Com 09/16/21 09/19/21 09/27/21 08:46 09:08 11:31 WBC RBC Hgb Hct MCV MCH MCHC RDW Plt Count MPV Immature Gran % (Auto) Neut % (Auto) Lymph % (Auto) [place] % (Auto) Eos % (Auto) Baso % (Auto) Lymph # (Auto) [place] # (Auto) Eos # (Auto) Baso # (Auto) Abs Immat Gran (auto) Absolute Neuts (auto) Absolute Nucleated RBC Nucleated RBC % (auto) ESR PT INR APTT Sodium 141 136 136 Potassium 4.2 3.8 4.1 Chloride 106 103 102 Carbon Dioxide 23 21 L 24 Anion Gap 16 16 14 BUN 24 H 28 H 13 D Creatinine 0.68 0.72 0.70 Estim Creat Clear Calc 79.2 74.8 76.9 Estimated GFR > 60 > 60 > 60 Random Glucose 97 113 105 Calcium 9.8 9.3 9.3 Phosphorus Magnesium 2.3 Total Bilirubin Direct Bilirubin AST ALT Alkaline Phosphatase C-Reactive Protein Total Protein Albumin Urine Color Urine Appearance Urine pH Ur Specific [place] Urine Protein Urine Glucose (UA) Urine Ketones Urine Blood Urine Nitrite Ur Leukocyte Esterase Urine RBC Urine WBC Ur Squamous Epith Cells Urine Bacteria Urine Opiates Screen Urine Fentanyl Screen Ur Barbiturates Screen Ur Phencyclidine Scrn Ur Amphetamines Screen U Benzodiazepines Scrn Urine Cocaine Screen U Marijuana (THC) Screen Ethyl Alcohol COVID-19 ([facility]) [employer] 09/28/21 10/01/21 10/05/21 08:29 12:25 08:23 WBC RBC Hgb Hct MCV MCH MCHC RDW Plt Count MPV Immature Gran % (Auto) Neut % (Auto) Lymph % (Auto) [place] % (Auto) Eos % (Auto) Baso % (Auto) Lymph # (Auto) [place] # (Auto) Eos # (Auto) Baso # (Auto) Abs Immat Gran (auto) Absolute Neuts (auto) Absolute Nucleated RBC Nucleated RBC % (auto) ESR PT INR APTT Sodium 135 135 134 L Potassium 3.8 3.8 3.8 Chloride 101 98 98 Carbon Dioxide 24 27 27 Anion Gap 14 14 13 BUN 13 9 9 Creatinine 0.67 0.77 0.65 Estim Creat Clear Calc 80.4 68.3 81.0 Estimated GFR > 60 > 60 > 60 Random Glucose 99 129 H 85 Calcium 9.5 9.6 8.9 D Phosphorus 3.1 2.1 L Magnesium 2.0 1.9 Total Bilirubin Direct Bilirubin AST ALT Alkaline Phosphatase C-Reactive Protein Total Protein Albumin Urine Color Urine Appearance Urine pH Ur Specific [place] Urine Protein Urine Glucose (UA) Urine Ketones Urine Blood Urine Nitrite Ur Leukocyte Esterase Urine RBC Urine WBC Ur Squamous Epith Cells Urine Bacteria Urine Opiates Screen Urine Fentanyl Screen Ur Barbiturates Screen Ur Phencyclidine Scrn Ur Amphetamines Screen U Benzodiazepines Scrn Urine Cocaine Screen U Marijuana (THC) Screen Ethyl Alcohol COVID-19 ([facility]) [employer] 10/07/21 08:17 WBC RBC Hgb Hct MCV MCH MCHC RDW Plt Count MPV Immature Gran % (Auto) Neut % (Auto) Lymph % (Auto) [place] % (Auto) Eos % (Auto) Baso % (Auto) Lymph # (Auto) [place] # (Auto) Eos # (Auto) Baso # (Auto) Abs Immat Gran (auto) Absolute Neuts (auto) Absolute Nucleated RBC Nucleated RBC % (auto) ESR PT INR APTT Sodium 135 Potassium 3.7 Chloride 102 Carbon Dioxide 26 Anion Gap 11 L BUN 9 Creatinine 0.60 Estim Creat Clear Calc 88.7 Estimated GFR > 60 Random Glucose 96 Calcium 8.6 Phosphorus Magnesium Total Bilirubin 0.2 Direct Bilirubin AST 25 ALT 26 Alkaline Phosphatase 91 D C-Reactive Protein Total Protein 4.9 L D Albumin 2.9 L D Urine Color Urine Appearance Urine pH Ur Specific [place] Urine Protein Urine Glucose (UA) Urine Ketones Urine Blood Urine Nitrite Ur Leukocyte Esterase Urine RBC Urine WBC Ur Squamous Epith Cells Urine Bacteria Urine Opiates Screen Urine Fentanyl Screen Ur Barbiturates Screen Ur Phencyclidine Scrn Ur Amphetamines Screen U Benzodiazepines Scrn Urine Cocaine Screen U Marijuana (THC) Screen Ethyl Alcohol COVID-19 ([facility]) COVID-19 Clin Com Airway Mallampati Class: II TM Dist: >3cm Neck ROM: Full Partial: Upper and Lower Loose/Missing/Broken Teeth: Yes Heart: [id number] Lungs: cta b/l Assessment and Plan Final Anesthetic Review Family History of Problems with Anesthesia: No History of Problems with Anesthesia: No NPO: Yes ASA Class: III Final Preanesthetic Review: No Changes in Pt Med Stat, Meds/Allgs Chart Reviewed, Consent Obtained/Reviewed and Anes Risks/Benef Reviewed Patient Risk: Intermediate Procedure Risk: Intermediate Assessment/Block/Sedation in SS: Assess/Block/Sedation-SS Anesthetic Plan Anesthetic Plan: GA and Agree w/ Assess. and Plan Disposition: Standard PACU
--- NOTE | 2021-10-19 13:21 | MHC.SHP ---
Pre-Procedural Eval Section A Date of Service: 10/19/21 Changes since office visit: Yes Changes in Medication and Yes Patient answered all questions; No Cold of Flu in the past 2 weeks and No New Medical Problems The History & Physical has been completed within 30 days and I have reviewed it.: Yes Section B Chief Complaint: Psychosis Allergies: Allergies Allergy/AdvReac Type Severity Reaction Status Date / Time bee pollen Allergy Severe Anaphylaxis Verified 08/25/21 12:46 levofloxacin [From Levaquin] Allergy Severe Itching Verified 08/25/21 12:46 enoxaparin [From Lovenox] Allergy Intermediate Rash Verified 09/12/21 13:58 Penicillins Allergy Unknown Unknown Verified 08/25/21 12:46 Plan I have reviewed the history and physical and performed a pertinent physical examination on my patient. No changes have occurred unless specified.
--- NOTE | 2021-10-19 13:32 | HO.ECTPROC ---
ECT Procedure Note Diagnosis/Treatment Date of Service: 10/19/21 Diagnosis: Bipolar disorder Current Treatment Number: 1 Treatment: Series Interval Clinical Notes: PT HAD ANXIETY PARANOIA PRE ECT HAS BEEN ASKING FOR TX PRIOR RECORDS REVIEWED ECT Settings Device: THYMATRON DGx Electrode Placement: Bifrontal Program/Pulse Width: 0.50 Energy Percent: 100 Seizure Duration By EEG (in seconds): 41 Medications Administration General Anesthetic: Etomidate (15) Muscle Relaxant: Succinylcholine (100) Ancillary Medications Miscillaneous Medications: Propofol (30 MG) Airway Management Airway Management: Bag Mask Ventilation Treatment Recommendations No Changes Recommended: No change
--- NOTE | 2021-10-19 14:38 | P.PNPSI_ITS ---
Subjective Subjective Date of Service: 10/19/21 Reason For Visit: Psychosis Interim History: pt seen in the milieu and in her room. reports she is quite anxious about ECT. it is hard for her to wait until the afternoon. she is afraid someone is going to kill her on the unit, references continuing to hear people talking about it (AH) on the unit. reports sleeping OK, having bad dreams. per staff, ECT scheduled for today. dep/anx 11/08. why are they talking about me? - experiencing AH, about which she has poor insight. paranoid and delusional. Mental Status Exam Mental Status Exam Narrative: Pt is alert and oriented; behavior is cooperative and calm; dressed in casual attire with adequate hygiene; affect anxious; eye contact appropriate; Speech is normal rate, volume and prosody and not pressured; no psychomotor agitation/retardation present; thought process is organized and goal directed; Thought content is on tx, paranoid delusions she will be killed on M3; denies any SI/HI. Bothersome AH; Patients insight and judgment are impaired. Diagnostics Vital Signs (24Hr): Vital Signs - 24 hr 10/18/21 18:00 10/18/21 20:22 10/19/21 06:55 Temperature 98.1 F 98.1 F 97.8 F Pulse Rate 94 98 94 Respiratory Rate 16 14 14 Blood Pressure 112/62 109/57 L 119/72 Pulse Oximetry 96 96 94 10/19/21 08:30 10/19/21 12:21 10/19/21 13:32 Temperature 97.8 F 98 F 98.2 F Pulse Rate 93 96 88 Respiratory Rate 16 20 16 Blood Pressure 101/66 116/70 160/90 H Pulse Oximetry 95 95 96 10/19/21 13:37 10/19/21 13:42 10/19/21 13:47 Temperature 99.5 F Pulse Rate 109 H 104 H 104 H Respiratory Rate 16 16 16 Blood Pressure 167/94 H 146/79 H Pulse Oximetry 93 93 94 10/19/21 14:07 Temperature 99.4 F Pulse Rate 88 Respiratory Rate 16 Blood Pressure 160/90 H Pulse Oximetry 96 BMI result Body Mass Index 22.7 Labs Results: 09/14/21 07:24 10/07/21 08:17 Imaging Radiology Impressions: ITS Impressions Head CT 09/13/21 12:37 IMPRESSION: No acute intracranial findings. Medications Medications Current Medications Acetaminophen (Acetaminophen 325 Mg Tablet) 650 mg PO Q6H PRN PRN Reason: Fever Or Pain Last Admin: 10/15/21 06:31 Dose: 650 mg Documented by: Al Hydroxide/Mg Hydroxide (Magnesium Hydrox/Alum Hydrox 30 Ml Oral.Susp) 30 ml PO Q6H PRN PRN Reason: Heartburn/Nausea Last Admin: 10/15/21 06:31 Dose: 30 ml Documented by: Apixaban (Apixaban 5 Mg Tablet) 5 mg PO BID [facility] Last Admin: 10/18/21 20:13 Dose: 5 mg Documented by: Calcium Carbonate/Cholecalciferol (Calcium + Vitamin D 250 Mg Tablet) 250 mg PO DAILY [facility] Last Admin: 10/18/21 08:23 Dose: 250 mg Documented by: Docusate Sodium (Docusate Sodium 100 Mg Capsule) 100 mg PO BID [facility] Last Admin: 10/18/21 20:13 Dose: 100 mg Documented by: Fluticasone Propionate (Fluticasone Propionate Nasal 16 Gm [place]) 1 spray NOSTRIL-B DAILY PRN PRN Reason: Allergy Symptoms Gabapentin (Gabapentin 300 Mg Capsule) 900 mg PO BEDTIME [facility] Last Admin: 10/18/21 20:12 Dose: 900 mg Documented by: Haloperidol (Haloperidol 5 Mg Tablet) 5 mg PO Q6H PRN PRN Reason: AH Last Admin: 10/18/21 20:12 Dose: 5 mg Documented by: Hydrocortisone (Hydrocortisone 1 % Cream 28.35 Gm Tube) 1 appl TOPICAL BID PRN PRN Reason: rash Lactulose (Lactulose 20 Gm/30 Ml Solution) 10 gm PO BID PRN PRN Reason: constipation Loratadine (Loratadine 10 Mg Tablet) 10 mg PO DAILY [facility] Last Admin: 10/18/21 08:23 Dose: 10 mg Documented by: Lorazepam (Lorazepam 1 Mg Tablet) 1 mg PO BID PRN PRN Reason: Severe anxiety Last Admin: 10/18/21 06:18 Dose: 1 mg Documented by: Magnesium Hydroxide (Milk Of Magnesia 30 Ml Oral.Susp) 30 ml PO DAILY PRN PRN Reason: Constipation Melatonin (Melatonin 3 Mg Tablet) 9 mg PO BEDTIME [facility] Last Admin: 10/18/21 20:12 Dose: 9 mg Documented by: Multivitamins/Vitamin C (Multivitamin Tablet) 1 tab PO DAILY [facility] Last Admin: 10/18/21 08:22 Dose: 1 tab Documented by: Nicotine Polacrilex (Nicotine Polacrilex Lozenge 2 Mg Lozenge) 2 mg BUCCAL Q1H PRN PRN Reason: Nicotine Cravings Omeprazole (Omeprazole 20 Mg Capsule.) 20 mg PO BID@0630,1630 [facility] Last Admin: 10/18/21 16:28 Dose: 20 mg Documented by: Quetiapine Fumarate (Quetiapine Fumarate 100 Mg Tablet) 100 mg PO BEDTIME PRN PRN Reason: Insomnia Last Admin: 10/14/21 19:57 Dose: 100 mg Documented by: Quetiapine Fumarate (Quetiapine Fumarate 400 Mg Tablet) 800 mg PO BEDTIME [facility] Last Admin: 10/18/21 20:12 Dose: 800 mg Documented by: Quetiapine Fumarate (Quetiapine Fumarate 100 Mg Tablet) 100 mg PO BID@0900,1500 [facility] Last Admin: 10/19/21 10:37 Dose: 100 mg Documented by: Allergies Allergies Allergy/AdvReac Type Severity Reaction Status Date / Time bee pollen Allergy Severe Anaphylaxis Verified 08/25/21 12:46 levofloxacin [From Levaquin] Allergy Severe Itching Verified 08/25/21 12:46 enoxaparin [From Lovenox] Allergy Intermediate Rash Verified 09/12/21 13:58 Penicillins Allergy Unknown Unknown Verified 08/25/21 12:46 Assessment & Plan Assessment & Plan (1) Acute deep vein thrombosis (DVT) of left tibial vein: Status: Acute Code(s): I82.442 - Acute embolism and thrombosis of left tibial vein Assessment and Plan: 65yo F admitted to inpatient psychiatry;s/p L TKA 08/09/21 who developed a LLE DVT diagnosed 09/05/21 treated with apixaban initially, but then refused PO intake;switched to enoxaparin but then developed a rash;hospitalists consulted for management of DVT; started on Fondaparinux secondary to noncompliance with oral therapies. Now taking orals without incident. Switched to Eliquis. Requested clearance for ECT 1 LLE DVT -excepting Eliquis -will need 3 months of therapy then repeat ultrasound to document clearance -should complaints change can restartFondaparinux 7.5mg SC daily 2. Bipolar disorder - patient is a moderate but acceptable risk for ECT and can proceed as per Dr. Meredith (2) Bipolar 1 disorder: Status: Acute Code(s): F31.9 - Bipolar disorder, unspecified Plan ativan 1 mg TID for recent catatonia decreased to 0.5 TID as of 10/10 as pt has recently improved substantially.? taper off. oxycontin DCed. fondaparinux 7.5 mg SQ daily for clot prophylaxis DCed 10/10 in favor of eliquis PO 5 BID. committed and medications ordered by court 09/20. haldol and ativan IM back-up for med refusal. continues to require regular IMs as of 10/03 due to refusing PO medications.? by 10/10 taking meds all PO. haldol IM back-up increased from 5 mg BID PRN to 7.5 mg BID PRN as of 09/28. ativan back-up increased from 1 mg to 2 mg 09/30. labs 10/07 reassuring re kidney fxn. work toward restoring home psych med regimen.? seroquel changed from 200 TID to 600 QHS as of 10/10. requesting ECT.? referred to mandy nicole clearance completed. will need to get ECT added to court order in order to proceed, however. seroquel increased to 800 QHS as of 10/11. seroquel 100 QAM and Q3pm added 10/12 due to ongoing delusions and agitation. ativan 0.5 mg TID reinstated as well 10/12. communicated with family lawyer 10/12 to have ECT added to Tx plan. 10/15: Continue current regimen and plans with no changes made today 10/16: Continue current plans and regimen with change of gabapentin to 900 mg at night 10/17 Continues to complain of auditory hallucinations which are bothersome discontinued Thorazine p.r.n. since not effective Will start Haldol 5 mg p.r.n. to see if can help with AH; patient already on low potency antipsychotic Seroquel; will try a higher potency medication to see if more effective as a prn 10/18: ECT to start tomorrow. NPO after MN. 10/19: paranoid and delusional I spent ___25___ minutes with the patient and/or on the patient floor today, greater than?50% of which was spent counseling/coordinating care. Reason for contiued inpatient stay Substantial Risk for: inability to function and rapid decompensation
[2021-10-19] MEDS: Multivitamin TABLET 1 TAB PO ×2 (14:56)
[2021-10-19] MEDS: Calcium + Vitamin D 250 MG TABLET PO ×2 (14:56)
[2021-10-19] MEDS: Loratadine 10 MG TABLET PO ×2 (14:56)
[2021-10-19] MEDS: Apixaban 5 MG TABLET PO ×3 (14:57→20:24)
[2021-10-19] MEDS: Docusate Sodium 100 MG CAPSULE PO ×3 (15:00→20:25)
[2021-10-19] MEDS: Omeprazole 20 MG CAPSULE.DR PO (15:59)
--- NOTE | 2021-10-19 17:21 | PC.NURSE ---
Patient received 1st ECT treatment today. VSS upon return. AM medication administered following return to unit per Dr. Rangel/Dr. Meredith authorization. Patient reports feeling better I don't feel depressed, I am less confused, more mellow. Reports feeling more alert. Denies confusion, denies irritability. Ate lunch, fluids encouraged.
[2021-10-19] MEDS: LORazepam 1 MG TABLET PO ×2 (18:47→20:26)
[2021-10-19] MEDS: QUEtiapine Fumarate 400 MG TABLET 800 MG PO (20:24)
[2021-10-19] MEDS: Melatonin 3 MG TABLET 9 MG PO (20:25)
[2021-10-19] MEDS: Gabapentin 300 MG CAPSULE 900 MG PO (20:26)
--- NOTE | 2021-10-19 20:34 | PC.NURSE ---
Addendum entered by Mee Renee RN 10/19/21 22:41: C/O #6 CP. Original Note: Patient made c/o #^ CP to counselor. VSS 123/73, 96 HR, 96% RA, 18RR. 97.2 T. No reported diaphoresis, no radiation. Roosevelt Zelaya APRN notified, EKG ordered, labs ordered. Patient endorses high anxiety. HS medication administered, Ativan 1x dose ordered. Patient compliant with interventions.
[2021-10-19 20:46] LABS: Troponin-I High Sensitivity 88.4 ng/L (<3.5-17.0)
--- NOTE | 2021-10-19 22:25 | P.CNHOSGPS_ITS ---
History of Present Illness Data of Consult Service Date: 10/19/21 Primary Care Provider: Unknown Physician [facility] Medical History Anxiety Bipolar 1 disorder Constipation GERD (gastroesophageal reflux disease) History of electroconvulsive therapy Hx of skin cancer, basal cell Hx of thyroid nodule Insomnia Murmur, cardiac Osteopenia Seasonal allergies Surgical History H/O elbow surgery History of back surgery Hx of colonoscopy Social History Housing: Assisted Living Facility Are you a primary home care aide to a significant other at home: No Do you presently have visiting nurse or other home services: Yes ([employer] 3 hours once a week) Unable to assess alcohol history related to: Unable to respond Patient Tobacco Use Status: Former Tobacco user Quit Date: 06/20/2021 cigarettes Tobacco use type: Cigarette Years Smoked: 30+, now vapes Use of substances other than those prescribed or required for medical reasons: Unknown Currently Displaying Signs/Symptoms of Drug Intoxication Withdrawal: No Spiritual Healthcare Practices: Unclear. Patient remained silent, unable to participate in assessment. Confucianist Healthcare Practices: Unclear. Patient remained silent, unable to participate in assessment. Cultural Healthcare Practices: Unclear. Patient remained silent, unable to participate in assessment. 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 presenting disorganized behavior when being interviewed. Meds Allergies Allergy/AdvReac Type Severity Reaction Status Date / Time bee pollen Allergy Severe Anaphylaxis Verified 08/25/21 12:46 levofloxacin [From Levaquin] Allergy Severe Itching Verified 08/25/21 12:46 enoxaparin [From Lovenox] Allergy Intermediate Rash Verified 09/12/21 13:58 Penicillins Allergy Unknown Unknown Verified 08/25/21 12:46 Active Medications: Current Medications Acetaminophen (Acetaminophen 325 Mg Tablet) 650 mg PO Q6H PRN PRN Reason: Fever Or Pain Last Admin: 10/15/21 06:31 Dose: 650 mg Documented by: Al Hydroxide/Mg Hydroxide (Magnesium Hydrox/Alum Hydrox 30 Ml Oral.Susp) 30 ml PO Q6H PRN PRN Reason: Heartburn/Nausea Last Admin: 10/15/21 06:31 Dose: 30 ml Documented by: Apixaban (Apixaban 5 Mg Tablet) 5 mg PO BID [facility] Last Admin: 10/19/21 20:24 Dose: 5 mg Documented by: Calcium Carbonate/Cholecalciferol (Calcium + Vitamin D 250 Mg Tablet) 250 mg PO DAILY [facility] Last Admin: 10/19/21 14:56 Dose: 250 mg Documented by: Docusate Sodium (Docusate Sodium 100 Mg Capsule) 100 mg PO BID [facility] Last Admin: 10/19/21 20:25 Dose: 100 mg Documented by: Fluticasone Propionate (Fluticasone Propionate Nasal 16 Gm [place]) 1 spray NOSTRIL-B DAILY PRN PRN Reason: Allergy Symptoms Gabapentin (Gabapentin 300 Mg Capsule) 900 mg PO BEDTIME [facility] Last Admin: 10/19/21 20:26 Dose: 900 mg Documented by: Haloperidol (Haloperidol 5 Mg Tablet) 5 mg PO Q6H PRN PRN Reason: AH Last Admin: 10/18/21 20:12 Dose: 5 mg Documented by: Hydrocortisone (Hydrocortisone 1 % Cream 28.35 Gm Tube) 1 appl TOPICAL BID PRN PRN Reason: rash Lactulose (Lactulose 20 Gm/30 Ml Solution) 10 gm PO BID PRN PRN Reason: constipation Loratadine (Loratadine 10 Mg Tablet) 10 mg PO DAILY [facility] Last Admin: 10/19/21 14:56 Dose: 10 mg Documented by: Lorazepam (Lorazepam 1 Mg Tablet) 1 mg PO BID PRN PRN Reason: Severe anxiety Last Admin: 10/19/21 18:47 Dose: 1 mg Documented by: Magnesium Hydroxide (Milk Of Magnesia 30 Ml Oral.Susp) 30 ml PO DAILY PRN PRN Reason: Constipation Melatonin (Melatonin 3 Mg Tablet) 9 mg PO BEDTIME [facility] Last Admin: 10/19/21 20:25 Dose: 9 mg Documented by: Multivitamins/Vitamin C (Multivitamin Tablet) 1 tab PO DAILY [facility] Last Admin: 10/19/21 14:56 Dose: 1 tab Documented by: Nicotine Polacrilex (Nicotine Polacrilex Lozenge 2 Mg Lozenge) 2 mg BUCCAL Q1H PRN PRN Reason: Nicotine Cravings Omeprazole (Omeprazole 20 Mg Capsule.) 20 mg PO BID@0630,1630 [facility] Last Admin: 10/19/21 15:59 Dose: 20 mg Documented by: Quetiapine Fumarate (Quetiapine Fumarate 100 Mg Tablet) 100 mg PO BEDTIME PRN PRN Reason: Insomnia Last Admin: 10/14/21 19:57 Dose: 100 mg Documented by: Quetiapine Fumarate (Quetiapine Fumarate 400 Mg Tablet) 800 mg PO BEDTIME [facility] Last Admin: 10/19/21 20:24 Dose: 800 mg Documented by: Quetiapine Fumarate (Quetiapine Fumarate 100 Mg Tablet) 100 mg PO BID@0900,1500 [facility] Last Admin: 10/19/21 16:00 Dose: Not Given Documented by: Home Medications Medication Instructions Recorded Confirmed Last Taken Type omeprazole 20 mg capsule,delayed 20 mg PO BID 05/09/21 09/08/21 08/09/21 History release biotin 5,000 mcg sublingual tablet 5,000 mcg SUBLINGUAL DAILY 07/21/21 09/08/21 Unknown History calcium carbonate 600 mg-vitamin 1 tab PO DAILY #0 07/21/21 09/08/21 Unknown History D3 5 mcg (200 unit) tablet docusate sodium 100 mg capsule 1 cap PO BID 07/21/21 09/08/21 Unknown History fluticasone propionate 50 1 spray INTRANASAL DAILY PRN 07/21/21 09/08/21 Unknown History mcg/actuation nasal spray,suspension gabapentin 400 mg capsule 800 mg PO BEDTIME 07/21/21 09/08/21 Unknown History loratadine 10 mg tablet (Claritin) 10 mg PO DAILY PRN 07/21/21 09/08/21 Unknown History melatonin 5 mg tablet 10 mg PO BEDTIME 07/21/21 09/08/21 08/09/21 History multivitamin 1 tab PO DAILY 07/21/21 09/08/21 Unknown History quetiapine 400 mg tablet 800 mg PO BEDTIME 07/21/21 09/08/21 Unknown History lactulose 10 gram/15 mL oral 15 ml PO BID PRN 09/05/21 09/08/21 Unknown History solution lorazepam 0.5 mg tablet 1 tab PO BEDTIME PRN 09/05/21 09/08/21 Unknown History quetiapine 100 mg tablet 100 mg PO BEDTIME PRN 09/05/21 09/08/21 Unknown History acetaminophen 325 mg tablet 650 mg PO Q6H PRN 09/08/21 09/08/21 Unknown History apixaban 5 mg (74 tabs) tablets in 10 mg PO BID 09/08/21 09/08/21 Unknown History a dose pack (Eliquis DVT-PE Treat 30D Start) apixaban 5 mg tablet 5 mg PO BID 09/08/21 09/08/21 Unknown History lorazepam 0.5 mg tablet (Ativan) 0.5 mg PO Q6H PRN 09/08/21 09/08/21 Unknown History oxycodone 10 mg tablet,crush 10 mg PO Q12H 09/08/21 09/08/21 Unknown History resistant,extended release 12 hr (OxyContin) oxycodone 5 mg tablet 5 mg PO Q4H PRN 09/08/21 09/08/21 Unknown History Results Labs CBC and Chem 7: 09/14/21 07:24 10/07/21 08:17 Labs: Laboratory Results - last 24 hr 10/19/21 10/19/21 20:05 20:05 Total Creatine Kinase 57 Troponin I High Sens 88.4 H* Physical Exam Vital Signs: Last Vital Signs Temp 97.2 F 10/19/21 20:38 Pulse 96 10/19/21 20:38 Resp 18 10/19/21 20:38 BP 123/73 10/19/21 20:38 Pulse Ox 96 10/19/21 20:38 BMI result Body Mass Index 22.7
--- NOTE | 2021-10-19 22:42 | PC.NURSE ---
Critical Troponin reported to Roosevelt Zelaya APRN. Hospitalist to see patient.
--- NOTE | 2021-10-19 22:54 | PC.NURSE ---
Patient refused repeat lab draw for troponin. Roosevelt Zelaya made aware, Dr. Zendejas made aware,. came to talk with patient who is now agreeable. Multiple calls to lab with no response.
--- NOTE | 2021-10-19 22:57 | PC.NURSE ---
Truck Mechanic notified of inability to reach lab, is going to attempt to reach lab stating he has different phone number. Truck Mechanic returned call provided new lab number. emergency veterinary technician is aware will return to floor for lab draw.
--- NOTE | 2021-10-19 23:42 | PC.NURSE ---
Lab called with a critical Troponin of 93.0, Dr Gee and Dr Domingo notified. No new orders. PT is resting quietly with eyes closed at this time. RN will monitor PT overnight.
--- NOTE | 2021-10-20 | CA_ITS ---
Acquisition Time: 2021-10-21 08:19:18 Total Exercise Time: 00:04:03 Test Indications: Abnormal Treadmill Test Medications: SEE EMAR Protocol: WILIAN Max HR: 142 BPM 91% of Pred: 156 BPM Max BP: 142/078 mmHG Max Work Load: 5.8 METS Chest pain positive. EKG negative for ischemia. Nuclear images pending. Referred By: Charu Ivy Overread By: CHARU IVY MD
[2021-10-20] MEDS: Omeprazole 20 MG CAPSULE.DR PO ×2 (06:33→16:18)
[2021-10-20 07:00] VITALS: BMI 23.4
--- NOTE | 2021-10-20 07:22 | P.EN_ITS ---
Event Note Date of Service: 10/20/21 Event Note: We were consulted in a stat consult as patient was complaining of chest pain. Troponin was obtained by LOGISTICS TEAM LEAD showed an elevated troponin of 88, on my exam patient was very uncooperative, he kept saying that she was asleep, she has no chest pain at this time, when I probed her more she reported that she had midsternal pressure-like chest pain that was 3/10, nonradiating, resolved after she received Ativan. Patient did not want to answer any of further of question s. EKG was done which showed normal sinus rhythm with no evidence of ACS. No ST T wave abnormalities. Troponin was repeated which was 93. At this time will consult Cardiology given the elevated troponin. I do not believe that this is a type 1, and will monitor at [facility]
[2021-10-20 09:02] VITALS: BP 112/67; PULSE 64; RESP 16; TEMP 36.6; O2SAT 93
[2021-10-20] MEDS: QUEtiapine Fumarate 100 MG TABLET PO ×2 (09:39→16:18)
[2021-10-20] MEDS: Multivitamin TABLET 1 TAB PO (09:39)
[2021-10-20] MEDS: Docusate Sodium 100 MG CAPSULE PO ×2 (09:39→20:01)
[2021-10-20] MEDS: Loratadine 10 MG TABLET PO (09:40)
[2021-10-20] MEDS: Calcium + Vitamin D 250 MG TABLET PO (09:40)
[2021-10-20] MEDS: Apixaban 5 MG TABLET PO ×2 (09:40→20:01)
--- NOTE | 2021-10-20 10:39 | CA_ITS ---
Transthoracic Echocardiogram Patient (Last, First, Middle): Steffi Robertson K Gender: Female Date of : 1955 Age: 66 Procedure Date: 10/20/2021 Procedure Type: Transthoracic Echocardiogram Location: S3W Height: 167.64 cm Weight: 65.77 kg BSA: 1.74 m2 Heart Rate: bpm BP: 112 / 67 mmHg Aircraft Worker: YR/TO Referring MD: Kraig Iyv MD Folder And Notcher: Kraig Iyv MD Symptoms: Chest pain elevated troponin Study Quality: Fair ECG Rhythm: Sinus Conclusions: - 1. Normal LV systolic function with impaired relaxation filling pattern 2. Normal cardiac valvular Doppler 3. Normal RV systolic pressure 4. No pericardial effusion Findings Left Ventricle Normal left ventricular size, thickness, and systolic function. The visually estimated ejection fraction is between 55-60%. There is no evidence of regional wall motion abnormalities. Spectral Doppler is indicative of an impaired relaxation filling pattern. E/E prime ratio is between 8 and 15 consistent with indeterminate filling pressures. Right Ventricle Normal right ventricular cavity size and systolic function. Atria The left atrium is likely dilated. There is lipomatous hypertrophy of the interatrial septum. There is no evidence of interatrial shunt. The right atrium is normal in size. Aortic Valve Normal aortic valve structure and function. There is no aortic valve stenosis. There is no aortic valve regurgitation. Mitral Valve Normal mitral valve structure and function. There is trace mitral valve regurgitation. There is no mitral valve stenosis. Pulmonic Valve The pulmonic valve was not well visualized. Tricuspid Valve Likely normal tricuspid valve structure and function. There is trace tricuspid valve regurgitation. The right ventricular systolic pressure is normal. The right ventricular systolic pressure is 21 mmHg. Normal right atrial pressure. There is no evidence of pulmonary hypertension. Great Vessels All visible segments of the aorta are normal in size. The pulmonary artery was not well visualized. Venous The inferior vena cava is normal in size and collapses greater than 50% with inspiration. Pericardium/Pleural There is no evidence of pericardial effusion. Prior Study Comparison No prior study available for comparison. Measurements 2D Linear Measurements IVSd: 0.92 0.6-0.9/0.6-1.0 cm LVIDd: 4.66 3.9-5.3/4.2-5.9 cm LVIDd Index: 2.68 2.4-3.2/2.2-3.1 cm/m2 LVIDs: 3.04 2.0-3.6 cm LVPWd: 0.92 0.7-1.1 cm LA Diam: 3.60 2.7-3.8/3.0-4.0 cm LAIDs Index: 2.07 1.5-2.3 cm/m2 LV Mass: 179.45 67-162/88-224 g LV Mass Index: 103.13 43-95/49-115 g/m2 LVOT Diam: 2.10 3.0+(-)1.3 cm 2D Systolic Function EF 4C: 55.00 >55% EF 2C: 58.10 >55% EF BiP: 57.10 >55% Mitral Valve MV Pk E: 0.71 MV PK A: 1.09 MV Decel Time: 211.00 E/A: 0.70 E'Lateral: 6.31 E'Medial: 5.00 E/E' Med: 14.20 E/E' Lat: 11.30 PHT: 62.00 MVA PHT: 3.55 Decel Howell: 3.37 LVOT LVOT Diam: 2.10 LVOT Area: 3.46 Diastolic Function MV Pk E: 0.71 MV Pk A: 1.09 E/A: 0.70 E'Medial: 5.00 E/E' Med: 14.20 E' Laterial: 6.31 E/E' Lat: 11.30 Right Ventricle TAPSE (mm): 27.70 TVS' Chris: 19.00 Tricuspid Valve TR Pk Chris: 2.14 TR Pk Grad: 18.00 RA Press: 3.00 RVSP: 21.00 Great Vessels Aorta Sinus of Valsalva: 3.40 2.0-3.[address] [place]: 2.86 1.7-3.4 cm Ao Asc: 3.40 2.1-3.4 cm Updated in Other Vendor System with Status of Final Kraig Ivy MD electronically signed on 10/20/2021 4:24:54 PM with status of Final
--- NOTE | 2021-10-20 11:59 | PM.CNCAR ---
History of Present Illness History of Present Illness Date of Service: 10/20/21 Requesting physician: Daryn Meredith Consult reason: chest pain Chief complaint: Psychosis Narrative: I was requested to see and in cardiology consultation today as she developed chest tightness yesterday after receiving ECT therapy. Troponin is were done and these will mildly elevated 90 but flat. EKG did not show any ischemic changes. Patient says she had ECT yesterday and did well after that. In the evening developed retrosternal chest tightness which lasted for about 15 minutes. She has not had symptoms like this in the past. She said they did EKG and then subsequently blood work and the symptoms resolved. Since then she has had no recurrent symptoms. She has had no recent symptoms with exertion. She is admitted for psychiatric issues with psychosis and is planned to undergo ECT therapy again in the future. Cardiology consultation was sort because of the chest pain as well as abnormal troponin and ECT clearance. Review of Systems Review of Systems: Yes all other systems are reviewed and are negative Constitutional: Constitutional: Reports no additional constitutional complaints Eyes: Eyes: Reports no additional eye complaints ENT: Reports system reviewed and no additional complaints, except as documented Cardiovascular: Cardiovascular: Reports no additional cardiovascular complaints Respiratory: Respiratory: Reports no additional respiratory complaints Gastrointestinal: Gastrointestinal: Reports no additional gastrointestinal complaints Musculoskeletal: Musculoskeletal: Reports no additional musculoskeletal complaints Neurologic: Reports system reviewed and no additional complaints, except as documented [facility] Past Medical History Medical History Anxiety Bipolar 1 disorder Constipation GERD (gastroesophageal reflux disease) History of electroconvulsive therapy Hx of skin cancer, basal cell Hx of thyroid nodule Insomnia Murmur, cardiac Osteopenia Seasonal allergies Surgical History Surgical History H/O elbow surgery History of back surgery Hx of colonoscopy Social History Social History Housing: Assisted Living Facility Are you a primary care director to a significant other at home: No Do you presently have visiting nurse or other home services: Yes ([employer] 3 hours once a week) Unable to assess alcohol history related to: Unable to respond Patient Tobacco Use Status: Former Tobacco user Quit Date: 06/20/2021 cigarettes Tobacco use type: Cigarette Years Smoked: 30+, now vapes Use of substances other than those prescribed or required for medical reasons: Unknown Currently Displaying Signs/Symptoms of Drug Intoxication Withdrawal: No Spiritual Healthcare Practices: Unclear. Patient remained silent, unable to participate in assessment. [facility] Healthcare Practices: Unclear. Patient remained silent, unable to participate in assessment. Cultural Healthcare Practices: Unclear. Patient remained silent, unable to participate in assessment. 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 presenting disorganized behavior when being interviewed. Meds Allergies Allergy/AdvReac Type Severity Reaction Status Date / Time bee pollen Allergy Severe Anaphylaxis Verified 08/25/21 12:46 levofloxacin [From Levaquin] Allergy Severe Itching Verified 08/25/21 12:46 enoxaparin [From Lovenox] Allergy Intermediate Rash Verified 09/12/21 13:58 Penicillins Allergy Unknown Unknown Verified 08/25/21 12:46 Active Medications: Current Medications Acetaminophen (Acetaminophen 325 Mg Tablet) 650 mg PO Q6H PRN PRN Reason: Fever Or Pain Last Admin: 10/15/21 06:31 Dose: 650 mg Documented by: Al Hydroxide/Mg Hydroxide (Magnesium Hydrox/Alum Hydrox 30 Ml Oral.Susp) 30 ml PO Q6H PRN PRN Reason: Heartburn/Nausea Last Admin: 10/15/21 06:31 Dose: 30 ml Documented by: Apixaban (Apixaban 5 Mg Tablet) 5 mg PO BID [facility] Last Admin: 10/20/21 09:40 Dose: 5 mg Documented by: Calcium Carbonate/Cholecalciferol (Calcium + Vitamin D 250 Mg Tablet) 250 mg PO DAILY [facility] Last Admin: 10/20/21 09:40 Dose: 250 mg Documented by: Docusate Sodium (Docusate Sodium 100 Mg Capsule) 100 mg PO BID [facility] Last Admin: 10/20/21 09:39 Dose: 100 mg Documented by: Fluticasone Propionate (Fluticasone Propionate Nasal 16 Gm [place]) 1 spray NOSTRIL-B DAILY PRN PRN Reason: Allergy Symptoms Gabapentin (Gabapentin 300 Mg Capsule) 900 mg PO BEDTIME [facility] Last Admin: 10/19/21 20:26 Dose: 900 mg Documented by: Haloperidol (Haloperidol 5 Mg Tablet) 5 mg PO Q6H PRN PRN Reason: AH Last Admin: 10/18/21 20:12 Dose: 5 mg Documented by: Hydrocortisone (Hydrocortisone 1 % Cream 28.35 Gm Tube) 1 appl TOPICAL BID PRN PRN Reason: rash Lactulose (Lactulose 20 Gm/30 Ml Solution) 10 gm PO BID PRN PRN Reason: constipation Loratadine (Loratadine 10 Mg Tablet) 10 mg PO DAILY [facility] Last Admin: 10/20/21 09:40 Dose: 10 mg Documented by: Lorazepam (Lorazepam 1 Mg Tablet) 1 mg PO BID PRN PRN Reason: Severe anxiety Last Admin: 10/19/21 18:47 Dose: 1 mg Documented by: Magnesium Hydroxide (Milk Of Magnesia 30 Ml Oral.Susp) 30 ml PO DAILY PRN PRN Reason: Constipation Melatonin (Melatonin 3 Mg Tablet) 9 mg PO BEDTIME [facility] Last Admin: 10/19/21 20:25 Dose: 9 mg Documented by: Multivitamins/Vitamin C (Multivitamin Tablet) 1 tab PO DAILY [facility] Last Admin: 10/20/21 09:39 Dose: 1 tab Documented by: Nicotine Polacrilex (Nicotine Polacrilex Lozenge 2 Mg Lozenge) 2 mg BUCCAL Q1H PRN PRN Reason: Nicotine Cravings Omeprazole (Omeprazole 20 Mg Capsule.) 20 mg PO BID@0630,1630 [facility] Last Admin: 10/20/21 06:33 Dose: 20 mg Documented by: Quetiapine Fumarate (Quetiapine Fumarate 100 Mg Tablet) 100 mg PO BEDTIME PRN PRN Reason: Insomnia Last Admin: 10/14/21 19:57 Dose: 100 mg Documented by: Quetiapine Fumarate (Quetiapine Fumarate 400 Mg Tablet) 800 mg PO BEDTIME [facility] Last Admin: 10/19/21 20:24 Dose: 800 mg Documented by: Quetiapine Fumarate (Quetiapine Fumarate 100 Mg Tablet) 100 mg PO BID@0900,1500 [facility] Last Admin: 10/20/21 09:39 Dose: 100 mg Documented by: Home Medications Medication Instructions Recorded Confirmed Last Taken Type omeprazole 20 mg capsule,delayed 20 mg PO BID 05/09/21 09/08/21 08/09/21 History release biotin 5,000 mcg sublingual tablet 5,000 mcg SUBLINGUAL DAILY 07/21/21 09/08/21 Unknown History calcium carbonate 600 mg-vitamin 1 tab PO DAILY #0 07/21/21 09/08/21 Unknown History D3 5 mcg (200 unit) tablet docusate sodium 100 mg capsule 1 cap PO BID 07/21/21 09/08/21 Unknown History fluticasone propionate 50 1 spray INTRANASAL DAILY PRN 07/21/21 09/08/21 Unknown History mcg/actuation nasal spray,suspension gabapentin 400 mg capsule 800 mg PO BEDTIME 07/21/21 09/08/21 Unknown History loratadine 10 mg tablet (Claritin) 10 mg PO DAILY PRN 07/21/21 09/08/21 Unknown History melatonin 5 mg tablet 10 mg PO BEDTIME 07/21/21 09/08/21 08/09/21 History multivitamin 1 tab PO DAILY 07/21/21 09/08/21 Unknown History quetiapine 400 mg tablet 800 mg PO BEDTIME 07/21/21 09/08/21 Unknown History lactulose 10 gram/15 mL oral 15 ml PO BID PRN 09/05/21 09/08/21 Unknown History solution lorazepam 0.5 mg tablet 1 tab PO BEDTIME PRN 09/05/21 09/08/21 Unknown History quetiapine 100 mg tablet 100 mg PO BEDTIME PRN 09/05/21 09/08/21 Unknown History acetaminophen 325 mg tablet 650 mg PO Q6H PRN 09/08/21 09/08/21 Unknown History apixaban 5 mg (74 tabs) tablets in 10 mg PO BID 09/08/21 09/08/21 Unknown History a dose pack (Eliquis DVT-PE Treat 30D Start) apixaban 5 mg tablet 5 mg PO BID 09/08/21 09/08/21 Unknown History lorazepam 0.5 mg tablet (Ativan) 0.5 mg PO Q6H PRN 09/08/21 09/08/21 Unknown History oxycodone 10 mg tablet,crush 10 mg PO Q12H 09/08/21 09/08/21 Unknown History resistant,extended release 12 hr (OxyContin) oxycodone 5 mg tablet 5 mg PO Q4H PRN 09/08/21 09/08/21 Unknown History Physical Exam Vital Signs: Vital Signs: Last Vital Signs Temp 97.9 F 10/20/21 09:02 Pulse 64 10/20/21 09:02 Resp 16 10/20/21 09:02 BP 112/67 10/20/21 09:02 Pulse Ox 93 10/20/21 09:02 BMI result Body Mass Index 23.4 Const: General: cooperative, comfortable, no acute distress, alert and awake Nutritional Appearance: average body habitus Orientation/consciousness: patient oriented x3 Limitations: no limitations HEENT: Head: Yes normocephalic and Yes atraumatic Neck: Neck: Yes trachea midline, Yes supple and Yes no JVD Chest: Chest palpation & inspection: normal inspection of the chest Cardio: Jugular venous distension: no JVD Palpation: normal PMI Rate: regular rate Rhythm: regular rhythm Heart sounds: S1 normal heart sound present and S2 normal heart sound present GI: Auscultation: normal bowel sounds Skin: General skin exam: no rashes or lesions noted Neuro: General: patient oriented x3 and no focal motor deficits Extrem: General: Yes no clubbing, cyanosis or edema Objective Labs and Meds Result diagrams: 09/14/21 07:24 10/07/21 08:17 Lab results: Laboratory Results - last 24 hr 10/19/21 10/19/21 10/19/21 20:05 20:05 23:08 Total Creatine Kinase 57 Troponin I High Sens 88.4 H* 93.0 H* Assessment and Plan (1) Chest pain: Status: Acute Sudden-onset self-limiting chest tightness in elderly woman which could represent myocardial ischemia. Troponins are mildly elevated but flat. This could be related to ECT therapy. Requires further evaluation for chest tightness given her risk factors. Will obtain echocardiogram given her prior history of DVT to evaluate for RV systolic function and size and pulmonary hypertension as well as to evaluate LV systolic and diastolic function and regional wall motion abnormality. If this is within acceptable limits would suggest a exercise myocardial perfusion imaging to assess for myocardial ischemia. If this is negative, she would be optimized to undergo further ECT therapy as required from psychiatric perspective. This was discussed with her in details and she is agreeable to this management plan. Will continue to follow with you Procedures Date of Service Date of Service: 10/20/21
[2021-10-20 19:55] VITALS: BP 118/64; PULSE 98; RESP 18; TEMP 35.6; O2SAT 95
[2021-10-20] MEDS: Gabapentin 300 MG CAPSULE 900 MG PO (20:01)
[2021-10-20] MEDS: QUEtiapine Fumarate 400 MG TABLET 800 MG PO (20:01)
[2021-10-20] MEDS: Melatonin 3 MG TABLET 9 MG PO (20:01)
[2021-10-20] MEDS: HaloperidoL 5 MG TABLET PO (20:05)
--- NOTE | 2021-10-21 08:11 | PC.NURSE ---
Patient to stress lab. Alert, awake, oriented. Denies chest pain, is aware that she will be having stress test, transported to stress lab w/ staff.
[2021-10-21 08:13] VITALS: BP 100/72; PULSE 101; RESP 18; TEMP 36.3; O2SAT 95
[2021-10-21] MEDS: Docusate Sodium 100 MG CAPSULE PO ×2 (09:33→20:19)
[2021-10-21] MEDS: Apixaban 5 MG TABLET PO ×2 (09:33→20:19)
[2021-10-21] MEDS: QUEtiapine Fumarate 100 MG TABLET PO ×2 (09:33→14:24)
[2021-10-21] MEDS: Omeprazole 20 MG CAPSULE.DR PO ×2 (09:34→16:48)
[2021-10-21] MEDS: Calcium + Vitamin D 250 MG TABLET PO (09:34)
[2021-10-21] MEDS: Multivitamin TABLET 1 TAB PO (09:34)
[2021-10-21 09:37] VITALS: BP 135/81; PULSE 111; RESP 18; TEMP 36.6; O2SAT 96
--- NOTE | 2021-10-21 09:38 | PC.NURSE ---
Patient back from stress lab- reports she had an episode of home pain while in the stress lab but denies any chest pain or discomfort at this time. Patient alert, resp unlabored, eating breakfast.
[2021-10-21] MEDS: Loratadine 10 MG TABLET PO (09:40)
[2021-10-21] MEDS: HaloperidoL 5 MG TABLET PO ×2 (10:03→15:37)
--- NOTE | 2021-10-21 13:29 | P.PNCA_ITS ---
Subjective Subjective Date of Service: 10/21/21 Principal diagnosis: Chest pain Interval history: Patient underwent stress test today and on the treadmill she had some chest pain. EKG was negative ischemia. However nuclear imaging shows small area of mild intensity apical ischemia. Patient has no recurrent symptoms at rest. Scheduled to undergo ECT Review of Systems Review of Systems Yes all other systems are reviewed and are negative Physical Exam Vital Signs: Last Vital Signs Temp 97.8 F 10/21/21 09:37 Pulse 111 H 10/21/21 09:37 Resp 18 10/21/21 09:37 BP 135/81 10/21/21 09:37 Pulse Ox 96 10/21/21 09:37 BMI result Body Mass Index 23.4 Const General: cooperative, comfortable, no acute distress, alert and awake Nutritional Appearance: average body habitus Orientation/consciousness: patient oriented x3 Neck Neck: Yes trachea midline, Yes supple and Yes no JVD Resp Effort & Inspection: normal respiratory effort Auscultation: clear to auscultation bilaterally Cardio Jugular venous distension: no JVD Palpation: normal PMI Rate: regular rate Rhythm: regular rhythm Heart sounds: S1 normal heart sound present, S2 normal heart sound present, no click, no gallops and no murmurs Skin General skin exam: no rashes or lesions noted Neuro General: patient oriented x3 Extrem General: Yes no clubbing, cyanosis or edema Objective Labs and Meds Result diagrams: 09/14/21 07:24 10/07/21 08:17 Imaging Radiologist's impression: Impressions Myocardial Perfusion Scan Nuc Med 10/21/21 09:25 Impression: 1. Small area of mild intensity apical ischemia 2. Gated LVEF is 68% 3. Transient ischemic dilatation not present Stress EKG is negative for ischemia Progress Note: A&P Assessment and plan (1) Chest pain: Status: Acute Assessment and Plan: Patient with chest tightness with abnormal troponin but no rise and fall consistent with acute myocardial infarction. Nuclear imaging shows small area of mild intensity apical ischemia suggestive of distal LAD territory ischemia. Low risk overall. Will start on medical therapy with metoprolol 25 mg b.i.d. and low-dose aspirin therapy. Also consider statin therapy with Lipitor 40 mg daily. Maximize metoprolol. Over the weekend will maximize her medication as long as she tolerates it. After that she will be optimized to undergo ECT therapy. Will continue to follow with you Fall Risk Details Current Medications: Current Medications Acetaminophen (Acetaminophen 325 Mg Tablet) 650 mg PO Q6H PRN PRN Reason: Fever Or Pain Last Admin: 10/15/21 06:31 Dose: 650 mg Documented by: Al Hydroxide/Mg Hydroxide (Magnesium Hydrox/Alum Hydrox 30 Ml Oral.Susp) 30 ml PO Q6H PRN PRN Reason: Heartburn/Nausea Last Admin: 10/15/21 06:31 Dose: 30 ml Documented by: Apixaban (Apixaban 5 Mg Tablet) 5 mg PO BID [facility] Last Admin: 10/21/21 09:33 Dose: 5 mg Documented by: Calcium Carbonate/Cholecalciferol (Calcium + Vitamin D 250 Mg Tablet) 250 mg PO DAILY [facility] Last Admin: 10/21/21 09:34 Dose: 250 mg Documented by: Docusate Sodium (Docusate Sodium 100 Mg Capsule) 100 mg PO BID [facility] Last Admin: 10/21/21 09:33 Dose: 100 mg Documented by: Fluticasone Propionate (Fluticasone Propionate Nasal 16 Gm [place]) 1 spray NOSTRIL-B DAILY PRN PRN Reason: Allergy Symptoms Gabapentin (Gabapentin 300 Mg Capsule) 900 mg PO BEDTIME [facility] Last Admin: 10/20/21 20:01 Dose: 900 mg Documented by: Haloperidol (Haloperidol 5 Mg Tablet) 5 mg PO Q6H PRN PRN Reason: AH Last Admin: 10/21/21 10:03 Dose: 5 mg Documented by: Hydrocortisone (Hydrocortisone 1 % Cream 28.35 Gm Tube) 1 appl TOPICAL BID PRN PRN Reason: rash Lactulose (Lactulose 20 Gm/30 Ml Solution) 10 gm PO BID PRN PRN Reason: constipation Loratadine (Loratadine 10 Mg Tablet) 10 mg PO DAILY [facility] Last Admin: 10/20/21 09:40 Dose: 10 mg Documented by: Lorazepam (Lorazepam 1 Mg Tablet) 1 mg PO BID PRN PRN Reason: Severe anxiety Last Admin: 10/19/21 18:47 Dose: 1 mg Documented by: Magnesium Hydroxide (Milk Of Magnesia 30 Ml Oral.Susp) 30 ml PO DAILY PRN PRN Reason: Constipation Melatonin (Melatonin 3 Mg Tablet) 9 mg PO BEDTIME [facility] Last Admin: 10/20/21 20:01 Dose: 9 mg Documented by: Metoprolol Tartrate (Metoprolol Tartrate 25 Mg Tablet) 25 mg PO BID [facility]; Protocol Multivitamins/Vitamin C (Multivitamin Tablet) 1 tab PO DAILY [facility] Last Admin: 10/21/21 09:34 Dose: 1 tab Documented by: Nicotine Polacrilex (Nicotine Polacrilex Lozenge 2 Mg Lozenge) 2 mg BUCCAL Q1H PRN PRN Reason: Nicotine Cravings Omeprazole (Omeprazole 20 Mg Capsule.Dr) 20 mg PO BID@0630,1630 [facility] Last Admin: 10/21/21 09:34 Dose: 20 mg Documented by: Quetiapine Fumarate (Quetiapine Fumarate 100 Mg Tablet) 100 mg PO BEDTIME PRN PRN Reason: Insomnia Last Admin: 10/14/21 19:57 Dose: 100 mg Documented by: Quetiapine Fumarate (Quetiapine Fumarate 400 Mg Tablet) 800 mg PO BEDTIME [facility] Last Admin: 10/20/21 20:01 Dose: 800 mg Documented by: Quetiapine Fumarate (Quetiapine Fumarate 100 Mg Tablet) 100 mg PO BID@0900,1500 [facility] Last Admin: 10/21/21 09:33 Dose: 100 mg Documented by: Time Spent With Patient Time: Total time spent is greater than 50% in coordination of care (as documented) at patient's floor/unit and/or counseling patient: Progress Note: Quality Stroke Does the patient have a stroke diagnosis?: No Procedures Date of Service Date of Service: 10/21/21
[2021-10-21 14:15] VITALS: BP 135/88; PULSE 100; RESP 20; TEMP 36.3; O2SAT 98
[2021-10-21] MEDS: Metoprolol Tartrate 25 MG TABLET PO ×2 (14:24→20:19)
[2021-10-21] MEDS: Atorvastatin Calcium 40 MG TABLET PO (14:24)
[2021-10-21] MEDS: Aspirin Enteric Coated 81 MG TABLET.DR PO (14:24)
--- NOTE | 2021-10-21 14:28 | P.PNPSI_ITS ---
Subjective Subjective Date of Service: 10/21/21 Reason For Visit: Psychosis Interim History: pt reports her thoughts have slowed down since admission and she states she was and is no longer catatonic. she is hopeful to be able to do several ECT treatments here and then return home to complete the series. awaiting clearance from cardiology to restart ECT was discussed, hoping for clarity today. per staff, visible, attending groups. somewhat isolative. anxious and depressed, suspicious at times. perseverative. delusional that people are making fun of her. asked for haldol last night for AH. Mental Status Exam Mental Status Exam Narrative: Pt is alert and oriented; behavior is cooperative and calm; dressed in casual attire with adequate hygiene; affect anxious; eye contact appropriate; Speech is normal rate, volume and prosody and not pressured; no psychomotor agitation /retardation present; thought process is organized and goal directed; Thought content is on tx, no paranoia or delusions expressed; no SI/HI/AVH expressed; Patients insight and judgment are improving. Diagnostics Vital Signs (24Hr): Vital Signs - 24 hr 10/20/21 19:55 10/21/21 08:13 10/21/21 09:37 Temperature 96.0 F L 97.4 F 97.8 F Pulse Rate 98 101 H 111 H Respiratory Rate 18 18 18 Blood Pressure 118/64 100/72 135/81 Pulse Oximetry 95 95 96 BMI result Body Mass Index 23.4 Labs Results: 09/14/21 07:24 10/07/21 08:17 Labs: Laboratory Results - last 48 hr 10/19/21 10/19/21 10/19/21 20:05 20:05 23:08 Total Creatine Kinase 57 Troponin I High Sens 88.4 H* 93.0 H* Imaging Radiology Impressions: ITS Impressions Head CT 09/13/21 12:37 IMPRESSION: No acute intracranial findings. Myocardial Perfusion Scan Nuc Med 10/21/21 09:25 Impression: 1. Small area of mild intensity apical ischemia 2. Gated LVEF is 68% 3. Transient ischemic dilatation not present Stress EKG is negative for ischemia Medications Medications Current Medications Acetaminophen (Acetaminophen 325 Mg Tablet) 650 mg PO Q6H PRN PRN Reason: Fever Or Pain Last Admin: 10/15/21 06:31 Dose: 650 mg Documented by: Al Hydroxide/Mg Hydroxide (Magnesium Hydrox/Alum Hydrox 30 Ml Oral.Susp) 30 ml PO Q6H PRN PRN Reason: Heartburn/Nausea Last Admin: 10/15/21 06:31 Dose: 30 ml Documented by: Apixaban (Apixaban 5 Mg Tablet) 5 mg PO BID [facility] Last Admin: 10/21/21 09:33 Dose: 5 mg Documented by: Aspirin (Aspirin Enteric Coated 81 Mg Tablet.) 81 mg PO DAILY [facility] Last Admin: 10/21/21 14:24 Dose: 81 mg Documented by: Atorvastatin Calcium (Atorvastatin Calcium 40 Mg Tablet) 40 mg PO DAILY [facility] Last Admin: 10/21/21 14:24 Dose: 40 mg Documented by: Calcium Carbonate/Cholecalciferol (Calcium + Vitamin D 250 Mg Tablet) 250 mg PO DAILY [facility] Last Admin: 10/21/21 09:34 Dose: 250 mg Documented by: Docusate Sodium (Docusate Sodium 100 Mg Capsule) 100 mg PO BID [facility] Last Admin: 10/21/21 09:33 Dose: 100 mg Documented by: Fluticasone Propionate (Fluticasone Propionate Nasal 16 Gm [place]) 1 spray NOSTRIL-B DAILY PRN PRN Reason: Allergy Symptoms Gabapentin (Gabapentin 300 Mg Capsule) 900 mg PO BEDTIME [facility] Last Admin: 10/20/21 20:01 Dose: 900 mg Documented by: Haloperidol (Haloperidol 5 Mg Tablet) 5 mg PO Q6H PRN PRN Reason: AH Last Admin: 10/21/21 10:03 Dose: 5 mg Documented by: Hydrocortisone (Hydrocortisone 1 % Cream 28.35 Gm Tube) 1 appl TOPICAL BID PRN PRN Reason: rash Lactulose (Lactulose 20 Gm/30 Ml Solution) 10 gm PO BID PRN PRN Reason: constipation Loratadine (Loratadine 10 Mg Tablet) 10 mg PO DAILY [facility] Last Admin: 10/20/21 09:40 Dose: 10 mg Documented by: Lorazepam (Lorazepam 1 Mg Tablet) 1 mg PO BID PRN PRN Reason: Severe anxiety Last Admin: 10/19/21 18:47 Dose: 1 mg Documented by: Magnesium Hydroxide (Milk Of Magnesia 30 Ml Oral.Susp) 30 ml PO DAILY PRN PRN Reason: Constipation Melatonin (Melatonin 3 Mg Tablet) 9 mg PO BEDTIME [facility] Last Admin: 10/20/21 20:01 Dose: 9 mg Documented by: Metoprolol Tartrate (Metoprolol Tartrate 25 Mg Tablet) 25 mg PO BID [facility]; Protocol Last Admin: 10/21/21 14:24 Dose: 25 mg Documented by: Multivitamins/Vitamin C (Multivitamin Tablet) 1 tab PO DAILY [facility] Last Admin: 10/21/21 09:34 Dose: 1 tab Documented by: Nicotine Polacrilex (Nicotine Polacrilex Lozenge 2 Mg Lozenge) 2 mg BUCCAL Q1H PRN PRN Reason: Nicotine Cravings Omeprazole (Omeprazole 20 Mg Capsule.) 20 mg PO BID@0630,1630 [facility] Last Admin: 10/21/21 09:34 Dose: 20 mg Documented by: Quetiapine Fumarate (Quetiapine Fumarate 100 Mg Tablet) 100 mg PO BEDTIME PRN PRN Reason: Insomnia Last Admin: 10/14/21 19:57 Dose: 100 mg Documented by: Quetiapine Fumarate (Quetiapine Fumarate 400 Mg Tablet) 800 mg PO BEDTIME [facility] Last Admin: 10/20/21 20:01 Dose: 800 mg Documented by: Quetiapine Fumarate (Quetiapine Fumarate 100 Mg Tablet) 100 mg PO BID@0900,1500 [facility] Last Admin: 10/21/21 14:24 Dose: 100 mg Documented by: Allergies Allergies Allergy/AdvReac Type Severity Reaction Status Date / Time bee pollen Allergy Severe Anaphylaxis Verified 08/25/21 12:46 levofloxacin [From Levaquin] Allergy Severe Itching Verified 08/25/21 12:46 enoxaparin [From Lovenox] Allergy Intermediate Rash Verified 09/12/21 13:58 Penicillins Allergy Unknown Unknown Verified 08/25/21 12:46 Assessment & Plan Assessment & Plan (1) Chest pain: Status: Acute Code(s): R07.9 - Chest pain, unspecified Assessment and Plan: Patient with chest tightness with abnormal troponin but no rise and fall consistent with acute myocardial infarction. Nuclear imaging shows small area of mild intensity apical ischemia suggestive of distal LAD territory ischemia. Low risk overall. Will start on medical therapy with metoprolol 25 mg b.i.d. and low-dose aspirin therapy. Also consider statin therapy with Lipitor 40 mg daily. Maximize metoprolol. Over the weekend will maximize her medication as long as she tolerates it. After that she will be optimized to undergo ECT therapy. Will continue to follow with you (2) Bipolar 1 disorder: Status: Acute Code(s): F31.9 - Bipolar disorder, unspecified Plan 65yo F admitted to inpatient psychiatry;s/p L TKA 08/09/21 who developed a LLE DVT diagnosed 09/05/21 treated with apixaban initially, but then refused PO intake;switched to enoxaparin but then developed a rash;hospitalists consulted for management of DVT; started on Fondaparinux secondary to noncompliance with oral therapies.? Now taking orals without incident.? Switched to Eliquis.? Requested clearance for ECT 1 LLE DVT -excepting Eliquis -will need 3 months of therapy then repeat ultrasound to document clearance -should complaints change can restartFondaparinux 7.5mg SC daily 2. Bipolar disorder - patient is a moderate but acceptable risk for ECT and can proceed as per Dr. Meredith (2) Bipolar 1 disorder: ?Status:?Acute ?Code(s): F31.9 - Bipolar disorder, unspecified Plan ativan 1 mg TID for recent catatonia decreased to 0.5 TID as of 10/10 as pt has recently improved substantially.? taper off. oxycontin DCed. fondaparinux 7.5 mg SQ daily for clot prophylaxis DCed 10/10 in favor of eliquis PO 5 BID. committed and medications ordered by court 09/20. haldol and ativan IM back-up for med refusal. continues to require regular IMs as of 10/03 due to refusing PO medications.? by 10/10 taking meds all PO. haldol IM back-up increased from 5 mg BID PRN to 7.5 mg BID PRN as of 09/28. ativan back-up increased from 1 mg to 2 mg 09/30. labs 10/07 reassuring re kidney fxn. work toward restoring home psych med regimen.? seroquel changed from 200 TID to 600 QHS as of 10/10. requesting ECT.? referred to mandy nicole clearance completed. will need to get ECT added to court order in order to proceed, however. seroquel increased to 800 QHS as of 10/11. seroquel 100 QAM and Q3pm added 10/12 due to ongoing delusions and agitation. ativan 0.5 mg TID reinstated as well 10/12. communicated with buffet attendant 10/12 to have ECT added to Tx plan. 10/15:? Continue current regimen and plans with no changes made today 10/16: Continue current plans and regimen with change of gabapentin to 900 mg at night 10/17 Continues to complain of auditory hallucinations which are bothersome discontinued Thorazine p.r.n. since not effective Will start Haldol 5 mg p.r.n. to see if can help with AH; patient already on low potency antipsychotic Seroquel; will try a higher potency medication to see if more effective as a prn 10/18: ECT to start tomorrow.? NPO after MN. 10/19: paranoid and delusional 10/21: less paranoid and delusional. cleared by cardiology for ECT sunday. ant i-hypertensives being added by cards and titrated over w/e. I spent ___35___ minutes with the patient and/or on the patient floor today, greater than?50% of which was spent counseling/coordinating care. Patient educated on: ECT and therapeutic strategies Reason for contiued inpatient stay Substantial Risk for: inability to function and rapid decompensation
[2021-10-21 20:16] VITALS: BP 106/60; PULSE 92; RESP 12; TEMP 37.1; O2SAT 95
[2021-10-21] MEDS: Melatonin 3 MG TABLET 9 MG PO (20:19)
[2021-10-21] MEDS: Gabapentin 300 MG CAPSULE 900 MG PO (20:19)
[2021-10-21] MEDS: QUEtiapine Fumarate 400 MG TABLET 800 MG PO (20:19)
[2021-10-22] MEDS: Atorvastatin Calcium 40 MG TABLET PO (08:27)
[2021-10-22] MEDS: Loratadine 10 MG TABLET PO (08:27)
[2021-10-22] MEDS: Aspirin Enteric Coated 81 MG TABLET.DR PO (08:28)
[2021-10-22] MEDS: Metoprolol Tartrate 25 MG TABLET PO (08:28)
[2021-10-22] MEDS: Apixaban 5 MG TABLET PO ×2 (08:28→20:23)
[2021-10-22] MEDS: Docusate Sodium 100 MG CAPSULE PO ×2 (08:28→20:22)
[2021-10-22] MEDS: Calcium + Vitamin D 250 MG TABLET PO (08:28)
[2021-10-22] MEDS: QUEtiapine Fumarate 100 MG TABLET PO ×2 (08:28→14:53)
[2021-10-22] MEDS: Omeprazole 20 MG CAPSULE.DR PO ×2 (08:28→16:28)
[2021-10-22] MEDS: Multivitamin TABLET 1 TAB PO (08:28)
[2021-10-22 08:35] VITALS: BP 110/68; PULSE 87; RESP 18; TEMP 36.6; O2SAT 97
--- NOTE | 2021-10-22 13:16 | P.PNCA_ITS ---
Subjective Subjective Date of Service: 10/22/21 Principal diagnosis: Chest pain Interval history: Patient with no recurrent chest tightness. Tolerating metoprolol aspirin and atorvastatin. Review of Systems Review of Systems Yes all other systems are reviewed and are negative Physical Exam Vital Signs: Last Vital Signs Temp 97.8 F 10/22/21 08:35 Pulse 87 10/22/21 08:35 Resp 18 10/22/21 08:35 BP 110/68 10/22/21 08:35 Pulse Ox 97 10/22/21 08:35 BMI result Body Mass Index 23.4 Const General: cooperative, comfortable, no acute distress, alert and awake Nutritional Appearance: average body habitus Orientation/consciousness: patient oriented x3 Neck Neck: Yes trachea midline, Yes supple and Yes no JVD Cardio Jugular venous distension: no JVD Palpation: normal PMI Rate: regular rate Rhythm: regular rhythm Heart sounds: S1 normal heart sound present, S2 normal heart sound present, no click, no gallops and no murmurs GI Auscultation: normal bowel sounds Skin General skin exam: no rashes or lesions noted Neuro General: patient oriented x3 and no focal motor deficits Extrem General: Yes no clubbing, cyanosis or edema Objective Labs and Meds Result diagrams: 09/14/21 07:24 10/07/21 08:17 Imaging Radiologist's impression: Impressions Myocardial Perfusion Scan Nuc Med 10/21/21 09:25 Impression: 1. Small area of mild intensity apical ischemia 2. Gated LVEF is 68% 3. Transient ischemic dilatation not present Stress EKG is negative for ischemia Progress Note: A&P Assessment and plan (1) Chest pain: Status: Acute Assessment and Plan: Patient chest tightness with mildly abnormal low risk myocardial perfusion imaging suggestive possibly distal LAD stenosis. Will maximize metoprolol to 50 mg b.i.d.. Continue monitor blood pressure with every shift. Continue aspirin statin therapy. As long as patient has no recurrent chest discomfort, optimized to undergo ECT on Sunday for her underlying psychiatric issues. She develops recurrent chest tightness may require further invasive evaluation. This was discussed with the patient. She understands agrees. Will continue follow-up Fall Risk Details Current Medications: Current Medications Acetaminophen (Acetaminophen 325 Mg Tablet) 650 mg PO Q6H PRN PRN Reason: Fever Or Pain Last Admin: 10/15/21 06:31 Dose: 650 mg Documented by: Al Hydroxide/Mg Hydroxide (Magnesium Hydrox/Alum Hydrox 30 Ml Oral.Susp) 30 ml PO Q6H PRN PRN Reason: Heartburn/Nausea Last Admin: 10/15/21 06:31 Dose: 30 ml Documented by: Apixaban (Apixaban 5 Mg Tablet) 5 mg PO BID [facility] Last Admin: 10/22/21 08:28 Dose: 5 mg Documented by: Aspirin (Aspirin Enteric Coated 81 Mg Tablet.) 81 mg PO DAILY [facility] Last Admin: 10/22/21 08:28 Dose: 81 mg Documented by: Atorvastatin Calcium (Atorvastatin Calcium 40 Mg Tablet) 40 mg PO DAILY [facility] Last Admin: 10/22/21 08:27 Dose: 40 mg Documented by: Calcium Carbonate/Cholecalciferol (Calcium + Vitamin D 250 Mg Tablet) 250 mg PO DAILY [facility] Last Admin: 10/22/21 08:28 Dose: 250 mg Documented by: Docusate Sodium (Docusate Sodium 100 Mg Capsule) 100 mg PO BID [facility] Last Admin: 10/22/21 08:28 Dose: 100 mg Documented by: Fluticasone Propionate (Fluticasone Propionate Nasal 16 Gm [place]) 1 spray NOSTRIL-B DAILY PRN PRN Reason: Allergy Symptoms Gabapentin (Gabapentin 300 Mg Capsule) 900 mg PO BEDTIME [facility] Last Admin: 10/21/21 20:19 Dose: 900 mg Documented by: Haloperidol (Haloperidol 5 Mg Tablet) 5 mg PO Q6H PRN PRN Reason: AH Last Admin: 10/21/21 15:37 Dose: 5 mg Documented by: Hydrocortisone (Hydrocortisone 1 % Cream 28.35 Gm Tube) 1 appl TOPICAL BID PRN PRN Reason: rash Lactulose (Lactulose 20 Gm/30 Ml Solution) 10 gm PO BID PRN PRN Reason: constipation Loratadine (Loratadine 10 Mg Tablet) 10 mg PO DAILY [facility] Last Admin: 10/22/21 08:27 Dose: 10 mg Documented by: Lorazepam (Lorazepam 1 Mg Tablet) 1 mg PO BID PRN PRN Reason: Severe anxiety Last Admin: 10/19/21 18:47 Dose: 1 mg Documented by: Magnesium Hydroxide (Milk Of Magnesia 30 Ml Oral.Susp) 30 ml PO DAILY PRN PRN Reason: Constipation Melatonin (Melatonin 3 Mg Tablet) 9 mg PO BEDTIME [facility] Last Admin: 10/21/21 20:19 Dose: 9 mg Documented by: Metoprolol Tartrate (Metoprolol Tartrate 50 Mg Tablet) 50 mg PO BID [facility]; Protocol Multivitamins/Vitamin C (Multivitamin Tablet) 1 tab PO DAILY [facility] Last Admin: 10/22/21 08:28 Dose: 1 tab Documented by: Nicotine Polacrilex (Nicotine Polacrilex Lozenge 2 Mg Lozenge) 2 mg BUCCAL Q1H PRN PRN Reason: Nicotine Cravings Omeprazole (Omeprazole 20 Mg Capsule.Dr) 20 mg PO BID@0630,1630 [facility] Last Admin: 10/22/21 08:28 Dose: 20 mg Documented by: Quetiapine Fumarate (Quetiapine Fumarate 100 Mg Tablet) 100 mg PO BEDTIME PRN PRN Reason: Insomnia Last Admin: 10/14/21 19:57 Dose: 100 mg Documented by: Quetiapine Fumarate (Quetiapine Fumarate 400 Mg Tablet) 800 mg PO BEDTIME [facility] Last Admin: 10/21/21 20:19 Dose: 800 mg Documented by: Quetiapine Fumarate (Quetiapine Fumarate 100 Mg Tablet) 100 mg PO BID@0900,1500 [facility] Last Admin: 10/22/21 08:28 Dose: 100 mg Documented by: Time Spent With Patient Time: Total time spent is greater than 50% in coordination of care (as documented) at patient's floor/unit and/or counseling patient: Progress Note: Quality Stroke Does the patient have a stroke diagnosis?: No Procedures Date of Service Date of Service: 10/22/21
--- NOTE | 2021-10-22 15:54 | P.PNPSI_ITS ---
Subjective Subjective Date of Service: 10/22/21 Reason For Visit: Psychosis Interim History: 10/21:pt reports her thoughts have slowed down since admission and she states she was and is no longer catatonic. she is hopeful to be able to do several ECT treatments here and then return home to complete the series. awaiting clearance from cardiology to restart ECT was discussed, hoping for clarity today. per staff, visible, attending groups. somewhat isolative. anxious and depressed, suspicious at times. perseverative. delusional that people are making fun of her. asked for haldol last night for AH. 10/22: Pleasant, presents self in good light. No CP. S/B Cardiology Dr Ivy. Metoprolol increased. OK for Mon ECT. Pt aware. Asks about DC.Agrees to continued stay and ECT. AH + but better Review of Systems Acute medical concerns: Yes See Cardiology note and F/U Review of Systems Review of Systems Yes all other systems are reviewed and are negative, unobtainable due to endotracheal tube and Unobtainable due to mental status Constitutional: Reports no additional constitutional complaints, Denies body ache(s), Denies chills, Reports difficulty sleeping, Denies fever(s), Denies headache(s), Reports poor appetite and Denies weakness Eyes: Reports no additional eye complaints and Denies change in vision Reports system reviewed and no additional complaints, except as documented, Denies dizziness, Denies headache(s), Denies nasal congestion, Denies nasal discharge and Denies neck pain Cardiovascular: Reports no additional cardiovascular complaints, Denies chest pain, Denies leg edema and Denies dyspnea Respiratory: Reports no additional respiratory complaints, Denies cough and Denies dyspnea Gastrointestinal: Reports no additional gastrointestinal complaints, Denies abdominal pain, Denies diarrhea, Denies nausea and Denies vomiting Musculoskeletal: Reports no additional musculoskeletal complaints, Denies back pain, Denies arthralgias, Denies joint swelling, Denies neck pain, Denies numbness and Denies tingling Skin/Breast: Reports system reviewed and no additional complaints, except as docu and Denies rash Reports system reviewed and no additional complaints, except as documented, Denies Abnormal speech present, Denies dizziness, Denies headache(s), Denies numbness, Denies tingling and Denies weakness Psychiatric: Reports anxiety, Reports depression, Denies visual hallucinations, Denies hallucinations, Denies homicidal ideation and Denies suicidal ideation Mental Status Exam Mental Status Exam Narrative: Pt is alert and oriented; behavior is cooperative and calm; dressed in casual attire with adequate hygiene; affect anxious; eye contact appropriate; Speech is normal rate, volume and prosody and not pressured; no psychomotor agita tion/retardation present; thought process is organized and goal directed; Thought content is on tx, no paranoia or delusions expressed; no SI/HI/AVH expressed; Patients insight and judgment are improving. Patient Appearance: Disheveled Diagnostics Vital Signs (24Hr): Vital Signs - 24 hr 10/21/21 20:16 10/22/21 08:35 Temperature 98.7 F 97.8 F Pulse Rate 92 87 Respiratory Rate 12 18 Blood Pressure 106/60 110/68 Pulse Oximetry 95 97 BMI result Body Mass Index 23.4 Labs Results: 09/14/21 07:24 10/07/21 08:17 Imaging Radiology Impressions: ITS Impressions Head CT 09/13/21 12:37 IMPRESSION: No acute intracranial findings. Myocardial Perfusion Scan Nuc Med 10/21/21 09:25 Impression: 1. Small area of mild intensity apical ischemia 2. Gated LVEF is 68% 3. Transient ischemic dilatation not present Stress EKG is negative for ischemia Medications Medications Current Medications Acetaminophen (Acetaminophen 325 Mg Tablet) 650 mg PO Q6H PRN PRN Reason: Fever Or Pain Last Admin: 10/15/21 06:31 Dose: 650 mg Documented by: Al Hydroxide/Mg Hydroxide (Magnesium Hydrox/Alum Hydrox 30 Ml Oral.Susp) 30 ml PO Q6H PRN PRN Reason: Heartburn/Nausea Last Admin: 10/15/21 06:31 Dose: 30 ml Documented by: Apixaban (Apixaban 5 Mg Tablet) 5 mg PO BID [facility] Last Admin: 10/22/21 08:28 Dose: 5 mg Documented by: Aspirin (Aspirin Enteric Coated 81 Mg Tablet.) 81 mg PO DAILY [facility] Last Admin: 10/22/21 08:28 Dose: 81 mg Documented by: Atorvastatin Calcium (Atorvastatin Calcium 40 Mg Tablet) 40 mg PO DAILY [facility] Last Admin: 10/22/21 08:27 Dose: 40 mg Documented by: Calcium Carbonate/Cholecalciferol (Calcium + Vitamin D 250 Mg Tablet) 250 mg PO DAILY [facility] Last Admin: 10/22/21 08:28 Dose: 250 mg Documented by: Docusate Sodium (Docusate Sodium 100 Mg Capsule) 100 mg PO BID [facility] Last Admin: 10/22/21 08:28 Dose: 100 mg Documented by: Fluticasone Propionate (Fluticasone Propionate Nasal 16 Gm [place]) 1 spray NOSTRIL-B DAILY PRN PRN Reason: Allergy Symptoms Gabapentin (Gabapentin 300 Mg Capsule) 900 mg PO BEDTIME [facility] Last Admin: 10/21/21 20:19 Dose: 900 mg Documented by: Haloperidol (Haloperidol 5 Mg Tablet) 5 mg PO Q6H PRN PRN Reason: AH Last Admin: 10/21/21 15:37 Dose: 5 mg Documented by: Hydrocortisone (Hydrocortisone 1 % Cream 28.35 Gm Tube) 1 appl TOPICAL BID PRN PRN Reason: rash Lactulose (Lactulose 20 Gm/30 Ml Solution) 10 gm PO BID PRN PRN Reason: constipation Loratadine (Loratadine 10 Mg Tablet) 10 mg PO DAILY [facility] Last Admin: 10/22/21 08:27 Dose: 10 mg Documented by: Lorazepam (Lorazepam 1 Mg Tablet) 1 mg PO BID PRN PRN Reason: Severe anxiety Last Admin: 10/19/21 18:47 Dose: 1 mg Documented by: Magnesium Hydroxide (Milk Of Magnesia 30 Ml Oral.Susp) 30 ml PO DAILY PRN PRN Reason: Constipation Melatonin (Melatonin 3 Mg Tablet) 9 mg PO BEDTIME [facility] Last Admin: 10/21/21 20:19 Dose: 9 mg Documented by: Metoprolol Tartrate (Metoprolol Tartrate 50 Mg Tablet) 50 mg PO BID [facility]; Protocol Multivitamins/Vitamin C (Multivitamin Tablet) 1 tab PO DAILY [facility] Last Admin: 10/22/21 08:28 Dose: 1 tab Documented by: Nicotine Polacrilex (Nicotine Polacrilex Lozenge 2 Mg Lozenge) 2 mg BUCCAL Q1H PRN PRN Reason: Nicotine Cravings Omeprazole (Omeprazole 20 Mg Capsule.Dr) 20 mg PO BID@0630,1630 [facility] Last Admin: 10/22/21 08:28 Dose: 20 mg Documented by: Quetiapine Fumarate (Quetiapine Fumarate 100 Mg Tablet) 100 mg PO BEDTIME PRN PRN Reason: Insomnia Last Admin: 10/14/21 19:57 Dose: 100 mg Documented by: Quetiapine Fumarate (Quetiapine Fumarate 400 Mg Tablet) 800 mg PO BEDTIME [facility] Last Admin: 10/21/21 20:19 Dose: 800 mg Documented by: Quetiapine Fumarate (Quetiapine Fumarate 100 Mg Tablet) 100 mg PO BID@0900,1500 [facility] Last Admin: 10/22/21 14:53 Dose: 100 mg Documented by: Allergies Allergies Allergy/AdvReac Type Severity Reaction Status Date / Time bee pollen Allergy Severe Anaphylaxis Verified 08/25/21 12:46 levofloxacin [From Levaquin] Allergy Severe Itching Verified 08/25/21 12:46 enoxaparin [From Lovenox] Allergy Intermediate Rash Verified 09/12/21 13:58 Penicillins Allergy Unknown Unknown Verified 08/25/21 12:46 Assessment & Plan Assessment & Plan (1) Chest pain: Status: Acute Code(s): R07.9 - Chest pain, unspecified Assessment and Plan: Patient chest tightness with mildly abnormal low risk myocardial perfusion imaging suggestive possibly distal LAD stenosis. Will maximize metoprolol to 50 mg b.i.d.. Continue monitor blood pressure with every shift. Continue aspirin statin therapy. As long as patient has no recurrent chest discomfort, optimized to undergo ECT on Sunday for her underlying psychiatric issues. She develops recurrent chest tightness may require further invasive evaluation. This was discussed with the patient. She understands agrees. Will continue follow-up 10/22: Ct with current meds and Plan for ECT on Sun. Metoprolol increased . Monitor VS I spent minutes with the patient and/or on the patient floor today, greater than?50% of which was spent counseling/coordinating care. Reason for contiued inpatient stay Substantial Risk for: inability to function, rapid decompensation and med/psych decompensation
[2021-10-22] MEDS: Acetaminophen 325 MG TABLET 650 MG PO (18:08)
[2021-10-22 20:20] VITALS: BP 134/92; PULSE 85; RESP 14; TEMP 36.4; O2SAT 97
[2021-10-22] MEDS: Gabapentin 300 MG CAPSULE 900 MG PO (20:22)
[2021-10-22] MEDS: Melatonin 3 MG TABLET 9 MG PO (20:23)
[2021-10-22] MEDS: Metoprolol Tartrate 50 MG TABLET PO (20:23)
[2021-10-22] MEDS: QUEtiapine Fumarate 400 MG TABLET 800 MG PO (20:23)
[2021-10-22] MEDS: LORazepam 1 MG TABLET PO (22:00)
[2021-10-23 08:35] VITALS: BP 111/66; PULSE 87; RESP 18; TEMP 36.6; O2SAT 96
[2021-10-23] MEDS: Calcium + Vitamin D 250 MG TABLET PO (08:41)
[2021-10-23] MEDS: Atorvastatin Calcium 40 MG TABLET PO (08:41)
[2021-10-23] MEDS: Omeprazole 20 MG CAPSULE.DR PO ×2 (08:41→17:20)
[2021-10-23] MEDS: Metoprolol Tartrate 50 MG TABLET PO ×2 (08:41→20:22)
[2021-10-23] MEDS: Aspirin Enteric Coated 81 MG TABLET.DR PO (08:42)
[2021-10-23] MEDS: Docusate Sodium 100 MG CAPSULE PO ×2 (08:42→20:22)
[2021-10-23] MEDS: QUEtiapine Fumarate 100 MG TABLET PO ×2 (08:42→15:13)
[2021-10-23] MEDS: Apixaban 5 MG TABLET PO ×2 (08:42→20:21)
[2021-10-23] MEDS: Multivitamin TABLET 1 TAB PO (08:42)
[2021-10-23] MEDS: Loratadine 10 MG TABLET PO (08:44)
[2021-10-23] MEDS: Acetaminophen 325 MG TABLET 650 MG PO ×2 (10:10→20:21)
--- NOTE | 2021-10-23 12:46 | PM.PNCARD ---
Subjective Subjective Date of Service: 10/23/21 Principal diagnosis: Chest pain Interval history: No recurrent chest pain on current regimen. Blood pressure is optimal on higher metoprolol dose. Remains active and walks around the unit without any chest discomfort. Review of Systems Review of Systems Yes all other systems are reviewed and are negative Physical Exam Vital Signs: Last Vital Signs Temp 97.8 F 10/23/21 08:35 Pulse 87 10/23/21 08:35 Resp 18 10/23/21 08:35 BP 111/66 10/23/21 08:35 Pulse Ox 96 10/23/21 08:35 BMI result Body Mass Index 23.4 Const General: cooperative, comfortable, alert and awake Nutritional Appearance: average body habitus Orientation/consciousness: patient oriented x3 Neck Neck: Yes trachea midline, Yes supple and Yes no JVD Resp Effort & Inspection: normal respiratory effort Auscultation: clear to auscultation bilaterally Cardio Jugular venous distension: no JVD Palpation: normal PMI Rate: regular rate Rhythm: regular rhythm Heart sounds: S1 normal heart sound present, S2 normal heart sound present, no click, no gallops and no murmurs GI Auscultation: normal bowel sounds Skin General skin exam: no rashes or lesions noted Neuro General: patient oriented x3 Objective Labs and Meds Result diagrams: 09/14/21 07:24 10/07/21 08:17 Progress Note: A&P Assessment and plan (1) Chest pain: Status: Acute Assessment and Plan: Chest pain with low risk myocardial perfusion imaging with no recurrent symptoms angina on medical therapy. Continue metoprolol 50 mg b.i.d. along with aspirin statins. Patient tolerating his medical regimen well. Currently optimized to undergo ECT tomorrow with low to intermediate risk. If she develops recurrent symptoms post ECT may require further invasive options. Will sign of the case and will follow up with her as outpatient. Fall Risk Details Current Medications: Current Medications Acetaminophen (Acetaminophen 325 Mg Tablet) 650 mg PO Q6H PRN PRN Reason: Fever Or Pain Last Admin: 10/23/21 10:10 Dose: 650 mg Documented by: Al Hydroxide/Mg Hydroxide (Magnesium Hydrox/Alum Hydrox 30 Ml Oral.Susp) 30 ml PO Q6H PRN PRN Reason: Heartburn/Nausea Last Admin: 10/15/21 06:31 Dose: 30 ml Documented by: Apixaban (Apixaban 5 Mg Tablet) 5 mg PO BID [facility] Last Admin: 10/23/21 08:42 Dose: 5 mg Documented by: Aspirin (Aspirin Enteric Coated 81 Mg Tablet.) 81 mg PO DAILY [facility] Last Admin: 10/23/21 08:42 Dose: 81 mg Documented by: Atorvastatin Calcium (Atorvastatin Calcium 40 Mg Tablet) 40 mg PO DAILY [facility] Last Admin: 10/23/21 08:41 Dose: 40 mg Documented by: Calcium Carbonate/Cholecalciferol (Calcium + Vitamin D 250 Mg Tablet) 250 mg PO DAILY [facility] Last Admin: 10/23/21 08:41 Dose: 250 mg Documented by: Docusate Sodium (Docusate Sodium 100 Mg Capsule) 100 mg PO BID [facility] Last Admin: 10/23/21 08:42 Dose: 100 mg Documented by: Fluticasone Propionate (Fluticasone Propionate Nasal 16 Gm [place]) 1 spray NOSTRIL-B DAILY PRN PRN Reason: Allergy Symptoms Gabapentin (Gabapentin 300 Mg Capsule) 900 mg PO BEDTIME [facility] Last Admin: 10/22/21 20:22 Dose: 900 mg Documented by: Haloperidol (Haloperidol 5 Mg Tablet) 5 mg PO Q6H PRN PRN Reason: AH Last Admin: 10/21/21 15:37 Dose: 5 mg Documented by: Hydrocortisone (Hydrocortisone 1 % Cream 28.35 Gm Tube) 1 appl TOPICAL BID PRN PRN Reason: rash Lactulose (Lactulose 20 Gm/30 Ml Solution) 10 gm PO BID PRN PRN Reason: constipation Loratadine (Loratadine 10 Mg Tablet) 10 mg PO DAILY [facility] Last Admin: 10/23/21 08:44 Dose: 10 mg Documented by: Lorazepam (Lorazepam 1 Mg Tablet) 1 mg PO BID PRN PRN Reason: Severe anxiety Last Admin: 10/22/21 22:00 Dose: 1 mg Documented by: Magnesium Hydroxide (Milk Of Magnesia 30 Ml Oral.Susp) 30 ml PO DAILY PRN PRN Reason: Constipation Melatonin (Melatonin 3 Mg Tablet) 9 mg PO BEDTIME [facility] Last Admin: 10/22/21 20:23 Dose: 9 mg Documented by: Metoprolol Tartrate (Metoprolol Tartrate 50 Mg Tablet) 50 mg PO BID [facility]; Protocol Last Admin: 10/23/21 08:41 Dose: 50 mg Documented by: Multivitamins/Vitamin C (Multivitamin Tablet) 1 tab PO DAILY [facility] Last Admin: 10/23/21 08:42 Dose: 1 tab Documented by: Nicotine Polacrilex (Nicotine Polacrilex Lozenge 2 Mg Lozenge) 2 mg BUCCAL Q1H PRN PRN Reason: Nicotine Cravings Omeprazole (Omeprazole 20 Mg Capsule.) 20 mg PO BID@0630,1630 [facility] Last Admin: 10/23/21 08:41 Dose: 20 mg Documented by: Quetiapine Fumarate (Quetiapine Fumarate 100 Mg Tablet) 100 mg PO BEDTIME PRN PRN Reason: Insomnia Last Admin: 10/14/21 19:57 Dose: 100 mg Documented by: Quetiapine Fumarate (Quetiapine Fumarate 400 Mg Tablet) 800 mg PO BEDTIME [facility] Last Admin: 10/22/21 20:23 Dose: 800 mg Documented by: Quetiapine Fumarate (Quetiapine Fumarate 100 Mg Tablet) 100 mg PO BID@0900,1500 [facility] Last Admin: 10/23/21 08:42 Dose: 100 mg Documented by: Time Spent With Patient Time: Total time spent is greater than 50% in coordination of care (as documented) at patient's floor/unit and/or counseling patient: Progress Note: Quality Stroke Does the patient have a stroke diagnosis?: No Procedures Date of Service Date of Service: 10/23/21
--- NOTE | 2021-10-23 14:37 | P.PNPSI_ITS ---
Subjective Subjective Date of Service: 10/23/21 Reason For Visit: Psychosis Subjective Notes: Conditional Voluntary Interim History: 10/21:pt reports her thoughts have slowed down since admission and she states she was and is no longer catatonic. she is hopeful to be able to do several ECT treatments here and then return home to complete the series. awaiting clearance from cardiology to restart ECT was discussed, hoping for clarity today. per staff, visible, attending groups. somewhat isolative. anxious and depressed, suspicious at times. perseverative. delusional that people are making fun of her. asked for haldol last night for AH. 10/22: Pleasant, presents self in good light. No CP. S/B Cardiology Dr Ivy. Metoprolol increased. OK for Mon ECT. Pt aware. Asks about DC.Agrees to continued stay and ECT. AH + but better 10/23: AH are better. No further CP/SOB. VS stable. Ready for ECT tomorrow. Used prn Ativan Medication Compliance: Yes Attending Groups: Yes Review of Systems See Cardiology note Review of Systems Review of Systems Yes all other systems are reviewed and are negative, unobtainable due to endotracheal tube and Unobtainable due to mental status Constitutional: Reports no additional constitutional complaints, Denies body ache(s), Denies chills, Reports difficulty sleeping, Denies fever(s), Denies headache(s), Reports poor appetite and Denies weakness Eyes: Reports no additional eye complaints and Denies change in vision Reports system reviewed and no additional complaints, except as documented, Denies dizziness, Denies headache(s), Denies nasal congestion, Denies nasal discharge and Denies neck pain Cardiovascular: Reports no additional cardiovascular complaints, Denies chest pain, Denies leg edema and Denies dyspnea Respiratory: Reports no additional respiratory complaints, Denies cough and Denies dyspnea Gastrointestinal: Reports no additional gastrointestinal complaints, Denies abdominal pain, Denies diarrhea, Denies nausea and Denies vomiting Musculoskeletal: Reports no additional musculoskeletal complaints, Denies back pain, Denies arthralgias, Denies joint swelling, Denies neck pain, Denies numbne ss and Denies tingling Skin/Breast: Reports system reviewed and no additional complaints, except as docu and Denies rash Reports system reviewed and no additional complaints, except as documented, Denies Abnormal speech present, Denies dizziness, Denies headache(s), Denies nu mbness, Denies tingling and Denies weakness Psychiatric: Reports anxiety, Reports depression, Denies visual hallucinations, Denies hallucinations, Denies homicidal ideation and Denies suicidal ideation Mental Status Exam Mental Status Exam Narrative: Pt is alert and oriented; behavior is cooperative and calm; dressed in casual attire with adequate hygiene; affect anxious; eye contact appropriate; Speech is normal rate, volume and prosody and not pressured; no psychomotor agitation/re tardation present; thought process is organized and goal directed; Thought content is on tx, no paranoia or delusions expressed; no SI/HI/AVH expressed; Patients insight and judgment are improving. Patient Appearance: Disheveled Diagnostics Vital Signs (24Hr): Vital Signs - 24 hr 10/22/21 20:20 10/23/21 08:35 Temperature 97.6 F 97.8 F Pulse Rate 85 87 Respiratory Rate 14 18 Blood Pressure 134/92 H 111/66 Pulse Oximetry 97 96 BMI result Body Mass Index 23.4 Labs Results: 09/14/21 07:24 10/07/21 08:17 Imaging Radiology Impressions: ITS Impressions Head CT 09/13/21 12:37 IMPRESSION: No acute intracranial findings. Myocardial Perfusion Scan Nuc Med 10/21/21 09:25 Impression: 1. Small area of mild intensity apical ischemia 2. Gated LVEF is 68% 3. Transient ischemic dilatation not present Stress EKG is negative for ischemia Medications Medications Current Medications Acetaminophen (Acetaminophen 325 Mg Tablet) 650 mg PO Q6H PRN PRN Reason: Fever Or Pain Last Admin: 10/23/21 10:10 Dose: 650 mg Documented by: Al Hydroxide/Mg Hydroxide (Magnesium Hydrox/Alum Hydrox 30 Ml Oral.Susp) 30 ml PO Q6H PRN PRN Reason: Heartburn/Nausea Last Admin: 10/15/21 06:31 Dose: 30 ml Documented by: Apixaban (Apixaban 5 Mg Tablet) 5 mg PO BID [facility] Last Admin: 10/23/21 08:42 Dose: 5 mg Documented by: Aspirin (Aspirin Enteric Coated 81 Mg Tablet.) 81 mg PO DAILY [facility] Last Admin: 10/23/21 08:42 Dose: 81 mg Documented by: Atorvastatin Calcium (Atorvastatin Calcium 40 Mg Tablet) 40 mg PO DAILY [facility] Last Admin: 10/23/21 08:41 Dose: 40 mg Documented by: Calcium Carbonate/Cholecalciferol (Calcium + Vitamin D 250 Mg Tablet) 250 mg PO DAILY [facility] Last Admin: 10/23/21 08:41 Dose: 250 mg Documented by: Docusate Sodium (Docusate Sodium 100 Mg Capsule) 100 mg PO BID [facility] Last Admin: 10/23/21 08:42 Dose: 100 mg Documented by: Fluticasone Propionate (Fluticasone Propionate Nasal 16 Gm [place]) 1 spray NOSTRIL-B DAILY PRN PRN Reason: Allergy Symptoms Gabapentin (Gabapentin 300 Mg Capsule) 900 mg PO BEDTIME [facility] Last Admin: 10/22/21 20:22 Dose: 900 mg Documented by: Haloperidol (Haloperidol 5 Mg Tablet) 5 mg PO Q6H PRN PRN Reason: AH Last Admin: 10/21/21 15:37 Dose: 5 mg Documented by: Hydrocortisone (Hydrocortisone 1 % Cream 28.35 Gm Tube) 1 appl TOPICAL BID PRN PRN Reason: rash Lactulose (Lactulose 20 Gm/30 Ml Solution) 10 gm PO BID PRN PRN Reason: constipation Loratadine (Loratadine 10 Mg Tablet) 10 mg PO DAILY [facility] Last Admin: 10/23/21 08:44 Dose: 10 mg Documented by: Lorazepam (Lorazepam 1 Mg Tablet) 1 mg PO BID PRN PRN Reason: Severe anxiety Last Admin: 10/22/21 22:00 Dose: 1 mg Documented by: Magnesium Hydroxide (Milk Of Magnesia 30 Ml Oral.Susp) 30 ml PO DAILY PRN PRN Reason: Constipation Melatonin (Melatonin 3 Mg Tablet) 9 mg PO BEDTIME [facility] Last Admin: 10/22/21 20:23 Dose: 9 mg Documented by: Metoprolol Tartrate (Metoprolol Tartrate 50 Mg Tablet) 50 mg PO BID [facility]; Protocol Last Admin: 10/23/21 08:41 Dose: 50 mg Documented by: Multivitamins/Vitamin C (Multivitamin Tablet) 1 tab PO DAILY [facility] Last Admin: 10/23/21 08:42 Dose: 1 tab Documented by: Nicotine Polacrilex (Nicotine Polacrilex Lozenge 2 Mg Lozenge) 2 mg BUCCAL Q1H PRN PRN Reason: Nicotine Cravings Omeprazole (Omeprazole 20 Mg Capsule.Dr) 20 mg PO BID@0630,1630 [facility] Last Admin: 10/23/21 08:41 Dose: 20 mg Documented by: Quetiapine Fumarate (Quetiapine Fumarate 100 Mg Tablet) 100 mg PO BEDTIME PRN PRN Reason: Insomnia Last Admin: 10/14/21 19:57 Dose: 100 mg Documented by: Quetiapine Fumarate (Quetiapine Fumarate 400 Mg Tablet) 800 mg PO BEDTIME [facility] Last Admin: 10/22/21 20:23 Dose: 800 mg Documented by: Quetiapine Fumarate (Quetiapine Fumarate 100 Mg Tablet) 100 mg PO BID@0900,1500 [facility] Last Admin: 10/23/21 08:42 Dose: 100 mg Documented by: Allergies Allergies Allergy/AdvReac Type Severity Reaction Status Date / Time bee pollen Allergy Severe Anaphylaxis Verified 08/25/21 12:46 levofloxacin [From Levaquin] Allergy Severe Itching Verified 08/25/21 12:46 enoxaparin [From Lovenox] Allergy Intermediate Rash Verified 09/12/21 13:58 Penicillins Allergy Unknown Unknown Verified 08/25/21 12:46 Assessment & Plan Assessment & Plan (1) Chest pain: Status: Acute Code(s): R07.9 - Chest pain, unspecified Assessment and Plan: Chest pain with low risk myocardial perfusion imaging with no recurrent symptoms angina on medical therapy. Continue metoprolol 50 mg b.i.d. along with aspirin statins. Patient tolerating his medical regimen well. Currently optimized to undergo ECT tomorrow with low to intermediate risk. If she develops recurrent symptoms post ECT may require further invasive options. Will sign of the case and will follow up with her as outpatient. Plan Appreciate Cardiology consult. Ct Rx plan, Med compliant I spent minutes with the patient and/or on the patient floor today, greater than?50% of which was spent counseling/coordinating care. Patient educated on: diagnosis and ECT Informed Consent: understands Reason for contiued inpatient stay Substantial Risk for: inability to function and med/psych decompensation
[2021-10-23 18:00] VITALS: BP 108/64; PULSE 88; RESP 18; TEMP 36.6; O2SAT 97
[2021-10-23] MEDS: HaloperidoL 5 MG TABLET PO (18:43)
[2021-10-23] MEDS: QUEtiapine Fumarate 400 MG TABLET 800 MG PO (20:21)
[2021-10-23] MEDS: Gabapentin 300 MG CAPSULE 900 MG PO (20:22)
[2021-10-23] MEDS: Melatonin 3 MG TABLET 9 MG PO (20:22)
[2021-10-24] VITALS (13 sets, daily range): BP systolic 114–195; BP diastolic 66–93; PULSE 66–88; RESP 18–20; TEMP 36.3–36.9; O2SAT 94–97
--- NOTE | 2021-10-24 06:06 | PC.NURSE ---
Metoprolol 50mg given early per MD request for ECT.
[2021-10-24] MEDS: Metoprolol Tartrate 50 MG TABLET PO ×2 (06:07→20:22)
--- NOTE | 2021-10-24 07:43 | MHC.SHP ---
Pre-Procedural Eval Section A Date of Service: 10/24/21 The patient is an INPATIENT: Yes Changes since office visit: Yes New Medical Problems, Yes Changes in Medication and Yes Patient answered all questions; No Cold of Flu in the past 2 weeks The History & Physical has been completed within 30 days and I have reviewed it.: Yes Section B Chief Complaint: Psychosis Allergies: Allergies Allergy/AdvReac Type Severity Reaction Status Date / Time bee pollen Allergy Severe Anaphylaxis Verified 08/25/21 12:46 levofloxacin [From Levaquin] Allergy Severe Itching Verified 08/25/21 12:46 enoxaparin [From Lovenox] Allergy Intermediate Rash Verified 09/12/21 13:58 Penicillins Allergy Unknown Unknown Verified 08/25/21 12:46 Plan I have reviewed the history and physical and performed a pertinent physical examination on my patient. No changes have occurred unless specified. see cardiology notes from dr falk now on metoprolol no further CP
--- NOTE | 2021-10-24 07:47 | HO.ECTPROC ---
ECT Procedure Note Diagnosis/Treatment Date of Service: 10/24/21 Diagnosis: Bipolar disorder Previous ECT Date: 10/19/21 Current Treatment Number: 2 Treatment: Series Interval Clinical Notes: see cardiology consult now on b adrián mood improroved no c/o CP ECT Settings Device: THYMATRON DGx Electrode Placement: Bifrontal Program/Pulse Width: 0.50 Energy Percent: 100 Seizure Duration By EEG (in seconds): 16 Medications Administration General Anesthetic: Etomidate (15) Muscle Relaxant: Succinylcholine (100) Ancillary Medications Anti-emetics: Zofran - Pre ECT Airway Management Airway Management: Bag Mask Ventilation Treatment Recommendations Notes: Change to rtlf lower etomidate at [facility] had bitemporal previously HOLD GABAPENTIN NIGHT PRIOR TO ECT Pt Tolerated Procedure w/o Issue: Yes
--- NOTE | 2021-10-24 07:55 | P.CONAN_ITS ---
[facility] Active Problems Active Problems: All Active Problems (Updated 10/20/21 @ 12:06 by Kraig Ivy MD) Chest pain (Acute) Hypercalcemia (Acute) Hypernatremia (Acute) Diffuse papular rash (Acute) VITO (generalized anxiety disorder) (Acute) Osteopenia (Acute) Murmur, cardiac (Acute) Insomnia (Acute) GERD (gastroesophageal reflux disease) (Acute) Bipolar 1 disorder (Acute) Anxiety (Acute) Acute deep vein thrombosis (DVT) of left tibial vein (Acute) Status post total knee replacement, left (Acute) Varus deformity of knee (Acute) Osteoarthritis of left knee (Acute) Past Medical History Medical History Anxiety Bipolar 1 disorder Constipation GERD (gastroesophageal reflux disease) History of electroconvulsive therapy Hx of skin cancer, basal cell Hx of thyroid nodule Insomnia Murmur, cardiac Osteopenia Seasonal allergies Family History Family history of problems with anesthesia: No Surgical History Surgical History H/O elbow surgery History of back surgery Hx of colonoscopy History of Problems with Anesthesia: No Social History Social History Housing: Assisted Living Facility Are you a primary child care aide to a significant other at home: No Do you presently have visiting nurse or other home services: Yes ([employer] 3 hours once a week) Unable to assess alcohol history related to: Unable to respond Patient Tobacco Use Status: Former Tobacco user Quit Date: 06/20/2021 cigarettes Tobacco use type: Cigarette Years Smoked: 30+, now vapes Use of substances other than those prescribed or required for medical reasons: Unknown Currently Displaying Signs/Symptoms of Drug Intoxication Withdrawal: No Spiritual Healthcare Practices: Unclear. Patient remained silent, unable to participate in assessment. Yarsanism Healthcare Practices: Unclear. Patient remained silent, unable to participate in assessment. Cultural Healthcare Practices: Unclear. Patient remained silent, unable to participate in assessment. 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 presenting disorganized behavior when being interviewed. Meds Allergies Allergy/AdvReac Type Severity Reaction Status Date / Time bee pollen Allergy Severe Anaphylaxis Verified 08/25/21 12:46 levofloxacin [From Levaquin] Allergy Severe Itching Verified 08/25/21 12:46 enoxaparin [From Lovenox] Allergy Intermediate Rash Verified 09/12/21 13:58 Penicillins Allergy Unknown Unknown Verified 08/25/21 12:46 Active Medications: Current Medications Acetaminophen (Acetaminophen 325 Mg Tablet) 650 mg PO Q6H PRN PRN Reason: Fever Or Pain Last Admin: 10/23/21 20:21 Dose: 650 mg Documented by: Al Hydroxide/Mg Hydroxide (Magnesium Hydrox/Alum Hydrox 30 Ml Oral.Susp) 30 ml PO Q6H PRN PRN Reason: Heartburn/Nausea Last Admin: 10/15/21 06:31 Dose: 30 ml Documented by: Apixaban (Apixaban 5 Mg Tablet) 5 mg PO BID [facility] Last Admin: 10/23/21 20:21 Dose: 5 mg Documented by: Aspirin (Aspirin Enteric Coated 81 Mg Tablet.) 81 mg PO DAILY [facility] Last Admin: 10/23/21 08:42 Dose: 81 mg Documented by: Atorvastatin Calcium (Atorvastatin Calcium 40 Mg Tablet) 40 mg PO DAILY [facility] Last Admin: 10/23/21 08:41 Dose: 40 mg Documented by: Calcium Carbonate/Cholecalciferol (Calcium + Vitamin D 250 Mg Tablet) 250 mg PO DAILY [facility] Last Admin: 10/23/21 08:41 Dose: 250 mg Documented by: Docusate Sodium (Docusate Sodium 100 Mg Capsule) 100 mg PO BID [facility] Last Admin: 10/23/21 20:22 Dose: 100 mg Documented by: Fluticasone Propionate (Fluticasone Propionate Nasal 16 Gm [place]) 1 spray NOSTRIL-B DAILY PRN PRN Reason: Allergy Symptoms Gabapentin (Gabapentin 300 Mg Capsule) 900 mg PO BEDTIME [facility] Last Admin: 10/23/21 20:22 Dose: 900 mg Documented by: Haloperidol (Haloperidol 5 Mg Tablet) 5 mg PO Q6H PRN PRN Reason: AH Last Admin: 10/23/21 18:43 Dose: 5 mg Documented by: Hydrocortisone (Hydrocortisone 1 % Cream 28.35 Gm Tube) 1 appl TOPICAL BID PRN PRN Reason: rash Lactulose (Lactulose 20 Gm/30 Ml Solution) 10 gm PO BID PRN PRN Reason: constipation Loratadine (Loratadine 10 Mg Tablet) 10 mg PO DAILY [facility] Last Admin: 10/23/21 08:44 Dose: 10 mg Documented by: Lorazepam (Lorazepam 1 Mg Tablet) 1 mg PO BID PRN PRN Reason: Severe anxiety Last Admin: 10/22/21 22:00 Dose: 1 mg Documented by: Magnesium Hydroxide (Milk Of Magnesia 30 Ml Oral.Susp) 30 ml PO DAILY PRN PRN Reason: Constipation Melatonin (Melatonin 3 Mg Tablet) 9 mg PO BEDTIME [facility] Last Admin: 10/23/21 20:22 Dose: 9 mg Documented by: Metoprolol Tartrate (Metoprolol Tartrate 50 Mg Tablet) 50 mg PO BID [facility]; Protocol Last Admin: 10/24/21 06:07 Dose: 50 mg Documented by: Multivitamins/Vitamin C (Multivitamin Tablet) 1 tab PO DAILY [facility] Last Admin: 10/23/21 08:42 Dose: 1 tab Documented by: Nicotine Polacrilex (Nicotine Polacrilex Lozenge 2 Mg Lozenge) 2 mg BUCCAL Q1H PRN PRN Reason: Nicotine Cravings Omeprazole (Omeprazole 20 Mg Capsule.) 20 mg PO BID@0630,1630 [facility] Last Admin: 10/23/21 17:20 Dose: 20 mg Documented by: Quetiapine Fumarate (Quetiapine Fumarate 100 Mg Tablet) 100 mg PO BEDTIME PRN PRN Reason: Insomnia Last Admin: 10/14/21 19:57 Dose: 100 mg Documented by: Quetiapine Fumarate (Quetiapine Fumarate 400 Mg Tablet) 800 mg PO BEDTIME [facility] Last Admin: 10/23/21 20:21 Dose: 800 mg Documented by: Quetiapine Fumarate (Quetiapine Fumarate 100 Mg Tablet) 100 mg PO BID@0900,1500 [facility] Last Admin: 10/23/21 15:13 Dose: 100 mg Documented by: Home Medications Medication Instructions Recorded Confirmed Last Taken Type omeprazole 20 mg capsule,delayed 20 mg PO BID 05/09/21 09/08/21 08/09/21 History release biotin 5,000 mcg sublingual tablet 5,000 mcg SUBLINGUAL DAILY 07/21/21 09/08/21 Unknown History calcium carbonate 600 mg-vitamin 1 tab PO DAILY #0 07/21/21 09/08/21 Unknown History D3 5 mcg (200 unit) tablet docusate sodium 100 mg capsule 1 cap PO BID 07/21/21 09/08/21 Unknown History fluticasone propionate 50 1 spray INTRANASAL DAILY PRN 07/21/21 09/08/21 Unknown History mcg/actuation nasal spray,suspension gabapentin 400 mg capsule 800 mg PO BEDTIME 07/21/21 09/08/21 Unknown History loratadine 10 mg tablet (Claritin) 10 mg PO DAILY PRN 07/21/21 09/08/21 Unknown History melatonin 5 mg tablet 10 mg PO BEDTIME 07/21/21 09/08/21 08/09/21 History multivitamin 1 tab PO DAILY 07/21/21 09/08/21 Unknown History quetiapine 400 mg tablet 800 mg PO BEDTIME 07/21/21 09/08/21 Unknown History lactulose 10 gram/15 mL oral 15 ml PO BID PRN 09/05/21 09/08/21 Unknown History solution lorazepam 0.5 mg tablet 1 tab PO BEDTIME PRN 09/05/21 09/08/21 Unknown History quetiapine 100 mg tablet 100 mg PO BEDTIME PRN 09/05/21 09/08/21 Unknown History acetaminophen 325 mg tablet 650 mg PO Q6H PRN 09/08/21 09/08/21 Unknown History apixaban 5 mg (74 tabs) tablets in 10 mg PO BID 09/08/21 09/08/21 Unknown History a dose pack (Eliquis DVT-PE Treat 30D Start) apixaban 5 mg tablet 5 mg PO BID 09/08/21 09/08/21 Unknown History lorazepam 0.5 mg tablet (Ativan) 0.5 mg PO Q6H PRN 09/08/21 09/08/21 Unknown History oxycodone 10 mg tablet,crush 10 mg PO Q12H 09/08/21 09/08/21 Unknown History resistant,extended release 12 hr (OxyContin) oxycodone 5 mg tablet 5 mg PO Q4H PRN 09/08/21 09/08/21 Unknown History Exam Exam Date and Time: October 24, 2021 0755 Height,Weight and Vital Signs: Height 5 ft 6 in Weight 65.9 kg Last Vital Signs Temp 97.3 F 10/24/21 06:36 Pulse 74 10/24/21 06:36 Resp 18 10/24/21 06:36 BP 114/73 10/24/21 06:36 Pulse Ox 97 10/24/21 06:36 Pertinent Lab Results Pertinent Lab Results: Laboratory Tests 09/08/21 09/08/21 09/08/21 12:52 12:52 12:52 WBC 8.9 RBC 4.18 L Hgb 12.5 Hct 38.3 MCV 91.6 MCH 29.9 MCHC 32.6 RDW 12.9 Plt Count 249 MPV 8.7 L Immature Gran % (Auto) 0.5 H Neut % (Auto) 70.4 Lymph % (Auto) 17.2 L [place] % (Auto) 10.7 Eos % (Auto) 0.6 Baso % (Auto) 0.6 Lymph # (Auto) 1.5 [place] # (Auto) 1.0 Eos # (Auto) 0.1 Baso # (Auto) 0.1 Abs Immat Gran (auto) 0.04 H Absolute Neuts (auto) 6.3 Absolute Nucleated RBC 0.000 Nucleated RBC % (auto) 0.0 ESR PT INR APTT Sodium 136 Potassium 3.7 Chloride 103 Carbon Dioxide 23 Anion Gap 14 BUN 16 Creatinine 0.77 Estim Creat Clear Calc 75.8 Estimated GFR > 60 Random Glucose 112 Calcium 9.5 Phosphorus Magnesium Total Bilirubin 0.4 Direct Bilirubin < 0.2 AST 18 ALT 11 Alkaline Phosphatase 134 H Total Creatine Kinase Troponin I High Sens C-Reactive Protein Total Protein 7.2 Albumin 4.0 Urine Color Urine Appearance Urine pH Ur Specific [place] Urine Protein Urine Glucose (UA) Urine Ketones Urine Blood Urine Nitrite Ur Leukocyte Esterase Urine RBC Urine WBC Ur Squamous Epith Cells Urine Bacteria Urine Opiates Screen Urine Fentanyl Screen Ur Barbiturates Screen Ur Phencyclidine Scrn Ur Amphetamines Screen U Benzodiazepines Scrn Urine Cocaine Screen U Marijuana (THC) Screen Ethyl Alcohol < 10 COVID-19 ([facility]) COVID-19 Clin Com 09/08/21 09/08/21 09/08/21 12:53 20:44 20:44 WBC RBC Hgb Hct MCV MCH MCHC RDW Plt Count MPV Immature Gran % (Auto) Neut % (Auto) Lymph % (Auto) [place] % (Auto) Eos % (Auto) Baso % (Auto) Lymph # (Auto) [place] # (Auto) Eos # (Auto) Baso # (Auto) Abs Immat Gran (auto) Absolute Neuts (auto) Absolute Nucleated RBC Nucleated RBC % (auto) ESR PT INR APTT Sodium Potassium Chloride Carbon Dioxide Anion Gap BUN Creatinine Estim Creat Clear Calc Estimated GFR Random Glucose Calcium Phosphorus Magnesium Total Bilirubin Direct Bilirubin AST ALT Alkaline Phosphatase Total Creatine Kinase Troponin I High Sens C-Reactive Protein Total Protein Albumin Urine Color YELLOW Urine Appearance HAZY Urine pH 5.5 Ur Specific [place] >= 1.030 H Urine Protein NEG Urine Glucose (UA) NEG Urine Ketones 5 Urine Blood 1+ H Urine Nitrite NEG Ur Leukocyte Esterase NEG Urine RBC 0-2 Urine WBC 1-4 Ur Squamous Epith Cells TRACE Urine Bacteria 4+ Urine Opiates Screen POSITIVE H Urine Fentanyl Screen Not Detected Ur Barbiturates Screen Not Detected Ur Phencyclidine Scrn Not Detected Ur Amphetamines Screen Not Detected U Benzodiazepines Scrn Not Detected Urine Cocaine Screen Not Detected U Marijuana (THC) Screen Not Detected Ethyl Alcohol COVID-19 ([facility]) Negative [facility] See Note 09/09/21 09/09/21 09/09/21 09:23 21:12 21:12 WBC 9.2 RBC 4.33 Hgb 13.0 Hct 39.1 MCV 90.3 MCH 30.0 MCHC 33.2 RDW 12.5 Plt Count 261 MPV 8.8 L Immature Gran % (Auto) Neut % (Auto) Lymph % (Auto) [place] % (Auto) Eos % (Auto) Baso % (Auto) Lymph # (Auto) [place] # (Auto) Eos # (Auto) Baso # (Auto) Abs Immat Gran (auto) Absolute Neuts (auto) Absolute Nucleated RBC 0.000 Nucleated RBC % (auto) 0.0 ESR PT 13.8 H INR 1.2 H APTT 36.9 Sodium Potassium Chloride Carbon Dioxide Anion Gap BUN Creatinine Estim Creat Clear Calc Estimated GFR Random Glucose Calcium Phosphorus Magnesium Total Bilirubin Direct Bilirubin AST ALT Alkaline Phosphatase Total Creatine Kinase Troponin I High Sens C-Reactive Protein Total Protein Albumin Urine Color Urine Appearance Urine pH Ur Specific [place] Urine Protein Urine Glucose (UA) Urine Ketones Urine Blood Urine Nitrite Ur Leukocyte Esterase Urine RBC Urine WBC Ur Squamous Epith Cells Urine Bacteria Urine Opiates Screen Urine Fentanyl Screen Ur Barbiturates Screen Ur Phencyclidine Scrn Ur Amphetamines Screen U Benzodiazepines Scrn Urine Cocaine Screen U Marijuana (THC) Screen Ethyl Alcohol COVID-19 ([facility]) Negative [facility] See Note 09/10/21 09/10/2109/10/22 15:18 15:18 15:18 WBC 7.8 RBC 4.48 Hgb 13.5 Hct 40.8 MCV 91.1 MCH 30.1 MCHC 33.1 RDW 12.8 Plt Count 277 MPV 8.9 L Immature Gran % (Auto) Neut % (Auto) Lymph % (Auto) [place] % (Auto) Eos % (Auto) Baso % (Auto) Lymph # (Auto) [place] # (Auto) Eos # (Auto) Baso # (Auto) Abs Immat Gran (auto) Absolute Neuts (auto) Absolute Nucleated RBC 0.000 Nucleated RBC % (auto) 0.0 ESR PT 14.3 H INR 1.3 H APTT Sodium 139 Potassium 4.1 Chloride 105 Carbon Dioxide 24 Anion Gap 14 BUN 31 H D Creatinine 0.77 Estim Creat Clear Calc 75.8 Estimated GFR > 60 Random Glucose 98 Calcium 10.2 D Phosphorus Magnesium Total Bilirubin 0.5 Direct Bilirubin AST 22 ALT 13 Alkaline Phosphatase 144 H Total Creatine Kinase Troponin I High Sens C-Reactive Protein Total Protein 7.8 Albumin 4.3 Urine Color Urine Appearance Urine pH Ur Specific [place] Urine Protein Urine Glucose (UA) Urine Ketones Urine Blood Urine Nitrite Ur Leukocyte Esterase Urine RBC Urine WBC Ur Squamous Epith Cells Urine Bacteria Urine Opiates Screen Urine Fentanyl Screen Ur Barbiturates Screen Ur Phencyclidine Scrn Ur Amphetamines Screen U Benzodiazepines Scrn Urine Cocaine Screen U Marijuana (THC) Screen Ethyl Alcohol COVID-19 ([facility]) COVID-19 Clin Com 09/12/21 09/12/21 09/12/21 12:24 12:24 12:24 WBC 10.1 RBC 5.06 Hgb 15.4 Hct 47.0 MCV 92.9 MCH 30.4 MCHC 32.8 RDW 13.2 Plt Count 315 MPV 9.2 L Immature Gran % (Auto) 0.3 Neut % (Auto) 86.1 H Lymph % (Auto) 8.2 L [place] % (Auto) 4.9 Eos % (Auto) 0.4 Baso % (Auto) 0.1 Lymph # (Auto) 0.8 L [place] # (Auto) 0.5 Eos # (Auto) 0.0 Baso # (Auto) 0.0 Abs Immat Gran (auto) 0.03 Absolute Neuts (auto) 8.7 H Absolute Nucleated RBC 0.000 Nucleated RBC % (auto) 0.0 ESR 23 H PT INR APTT Sodium 147 H Potassium 4.2 Chloride 110 H Carbon Dioxide 21 L Anion Gap 20 BUN 55 H D Creatinine 1.09 Estim Creat Clear Calc 53.6 Estimated GFR 51 Random Glucose 145 H Calcium 10.9 H D Phosphorus Magnesium Total Bilirubin Direct Bilirubin AST ALT Alkaline Phosphatase Total Creatine Kinase Troponin I High Sens C-Reactive Protein 0.81 H Total Protein Albumin Urine Color Urine Appearance Urine pH Ur Specific [place] Urine Protein Urine Glucose (UA) Urine Ketones Urine Blood Urine Nitrite Ur Leukocyte Esterase Urine RBC Urine WBC Ur Squamous Epith Cells Urine Bacteria Urine Opiates Screen Urine Fentanyl Screen Ur Barbiturates Screen Ur Phencyclidine Scrn Ur Amphetamines Screen U Benzodiazepines Scrn Urine Cocaine Screen U Marijuana (THC) Screen Ethyl Alcohol COVID-19 ([facility]) COVID-19 [employer] Com 09/13/21 09/14/21 09/14/21 19:14 07:24 07:24 WBC 8.1 RBC 4.07 L Hgb 12.1 D Hct 37.3 D MCV 91.6 MCH 29.7 MCHC 32.4 RDW 12.7 Plt Count 211 D MPV 9.1 L Immature Gran % (Auto) Neut % (Auto) Lymph % (Auto) [place] % (Auto) Eos % (Auto) Baso % (Auto) Lymph # (Auto) [place] # (Auto) Eos # (Auto) Baso # (Auto) Abs Immat Gran (auto) Absolute Neuts (auto) Absolute Nucleated RBC 0.000 Nucleated RBC % (auto) 0.0 ESR PT INR APTT Sodium 139 139 Potassium 3.7 3.8 Chloride 105 106 Carbon Dioxide 25 26 Anion Gap 13 11 L BUN 30 H 24 H Creatinine 0.72 0.66 Estim Creat Clear Calc 81.1 88.5 Estimated GFR > 60 > 60 Random Glucose 107 107 Calcium 9.3 D 9.3 Phosphorus Magnesium Total Bilirubin Direct Bilirubin AST ALT Alkaline Phosphatase Total Creatine Kinase Troponin I High Sens C-Reactive Protein Total Protein Albumin Urine Color Urine Appearance Urine pH Ur Specific [place] Urine Protein Urine Glucose (UA) Urine Ketones Urine Blood Urine Nitrite Ur Leukocyte Esterase Urine RBC Urine WBC Ur Squamous Epith Cells Urine Bacteria Urine Opiates Screen Urine Fentanyl Screen Ur Barbiturates Screen Ur Phencyclidine Scrn Ur Amphetamines Screen U Benzodiazepines Scrn Urine Cocaine Screen U Marijuana (THC) Screen Ethyl Alcohol COVID-19 ([facility]) COVID-19 Clin Com 09/16/21 09/19/21 09/27/21 08:46 09:08 11:31 WBC RBC Hgb Hct MCV MCH MCHC RDW Plt Count MPV Immature Gran % (Auto) Neut % (Auto) Lymph % (Auto) [place] % (Auto) Eos % (Auto) Baso % (Auto) Lymph # (Auto) [place] # (Auto) Eos # (Auto) Baso # (Auto) Abs Immat Gran (auto) Absolute Neuts (auto) Absolute Nucleated RBC Nucleated RBC % (auto) ESR PT INR APTT Sodium 141 136 136 Potassium 4.2 3.8 4.1 Chloride 106 103 102 Carbon Dioxide 23 21 L 24 Anion Gap 16 16 14 BUN 24 H 28 H 13 D Creatinine 0.68 0.72 0.70 Estim Creat Clear Calc 79.2 74.8 76.9 Estimated GFR > 60 > 60 > 60 Random Glucose 97 113 105 Calcium 9.8 9.3 9.3 Phosphorus Magnesium 2.3 Total Bilirubin Direct Bilirubin AST ALT Alkaline Phosphatase Total Creatine Kinase Troponin I High Sens C-Reactive Protein Total Protein Albumin Urine Color Urine Appearance Urine pH Ur Specific [place] Urine Protein Urine Glucose (UA) Urine Ketones Urine Blood Urine Nitrite Ur Leukocyte Esterase Urine RBC Urine WBC Ur Squamous Epith Cells Urine Bacteria Urine Opiates Screen Urine Fentanyl Screen Ur Barbiturates Screen Ur Phencyclidine Scrn Ur Amphetamines Screen U Benzodiazepines Scrn Urine Cocaine Screen U Marijuana (THC) Screen Ethyl Alcohol COVID-19 ([facility]) COVID-19 Clin Com 09/28/21 10/01/21 10/05/21 08:29 12:25 08:23 WBC RBC Hgb Hct MCV MCH MCHC RDW Plt Count MPV Immature Gran % (Auto) Neut % (Auto) Lymph % (Auto) [place] % (Auto) Eos % (Auto) Baso % (Auto) Lymph # (Auto) [place] # (Auto) Eos # (Auto) Baso # (Auto) Abs Immat Gran (auto) Absolute Neuts (auto) Absolute Nucleated RBC Nucleated RBC % (auto) ESR PT INR APTT Sodium 135 135 134 L Potassium 3.8 3.8 3.8 Chloride 101 98 98 Carbon Dioxide 24 27 27 Anion Gap 14 14 13 BUN 13 9 9 Creatinine 0.67 0.77 0.65 Estim Creat Clear Calc 80.4 68.3 81.0 Estimated GFR > 60 > 60 > 60 Random Glucose 99 129 H 85 Calcium 9.5 9.6 8.9 D Phosphorus 3.1 2.1 L Magnesium 2.0 1.9 Total Bilirubin Direct Bilirubin AST ALT Alkaline Phosphatase Total Creatine Kinase Troponin I High Sens C-Reactive Protein Total Protein Albumin Urine Color Urine Appearance Urine pH Ur Specific [place] Urine Protein Urine Glucose (UA) Urine Ketones Urine Blood Urine Nitrite Ur Leukocyte Esterase Urine RBC Urine WBC Ur Squamous Epith Cells Urine Bacteria Urine Opiates Screen Urine Fentanyl Screen Ur Barbiturates Screen Ur Phencyclidine Scrn Ur Amphetamines Screen U Benzodiazepines Scrn Urine Cocaine Screen U Marijuana (THC) Screen Ethyl Alcohol COVID-19 ([facility]) [facility] 10/07/21 10/19/21 10/19/21 08:17 20:05 20:05 WBC RBC Hgb Hct MCV MCH MCHC RDW Plt Count MPV Immature Gran % (Auto) Neut % (Auto) Lymph % (Auto) [place] % (Auto) Eos % (Auto) Baso % (Auto) Lymph # (Auto) [place] # (Auto) Eos # (Auto) Baso # (Auto) Abs Immat Gran (auto) Absolute Neuts (auto) Absolute Nucleated RBC Nucleated RBC % (auto) ESR PT INR APTT Sodium 135 Potassium 3.7 Chloride 102 Carbon Dioxide 26 Anion Gap 11 L BUN 9 Creatinine 0.60 Estim Creat Clear Calc 88.7 Estimated GFR > 60 Random Glucose 96 Calcium 8.6 Phosphorus Magnesium Total Bilirubin 0.2 Direct Bilirubin AST 25 ALT 26 Alkaline Phosphatase 91 D Total Creatine Kinase 57 Troponin I High Sens 88.4 H* C-Reactive Protein Total Protein 4.9 L D Albumin 2.9 L D Urine Color Urine Appearance Urine pH Ur Specific [place] Urine Protein Urine Glucose (UA) Urine Ketones Urine Blood Urine Nitrite Ur Leukocyte Esterase Urine RBC Urine WBC Ur Squamous Epith Cells Urine Bacteria Urine Opiates Screen Urine Fentanyl Screen Ur Barbiturates Screen Ur Phencyclidine Scrn Ur Amphetamines Screen U Benzodiazepines Scrn Urine Cocaine Screen U Marijuana (THC) Screen Ethyl Alcohol COVID-19 ([facility]) [facility]Xi 10/19/21 23:08 WBC RBC Hgb Hct MCV MCH MCHC RDW Plt Count MPV Immature Gran % (Auto) Neut % (Auto) Lymph % (Auto) [place] % (Auto) Eos % (Auto) Baso % (Auto) Lymph # (Auto) [place] # (Auto) Eos # (Auto) Baso # (Auto) Abs Immat Gran (auto) Absolute Neuts (auto) Absolute Nucleated RBC Nucleated RBC % (auto) ESR PT INR APTT Sodium Potassium Chloride Carbon Dioxide Anion Gap BUN Creatinine Estim Creat Clear Calc Estimated GFR Random Glucose Calcium Phosphorus Magnesium Total Bilirubin Direct Bilirubin AST ALT Alkaline Phosphatase Total Creatine Kinase Troponin I High Sens 93.0 H* C-Reactive Protein Total Protein Albumin Urine Color Urine Appearance Urine pH Ur Specific [place] Urine Protein Urine Glucose (UA) Urine Ketones Urine Blood Urine Nitrite Ur Leukocyte Esterase Urine RBC Urine WBC Ur Squamous Epith Cells Urine Bacteria Urine Opiates Screen Urine Fentanyl Screen Ur Barbiturates Screen Ur Phencyclidine Scrn Ur Amphetamines Screen U Benzodiazepines Scrn Urine Cocaine Screen U Marijuana (THC) Screen Ethyl Alcohol COVID-19 ([facility]) COVID-19 Clin Com Airway Loose/Missing/Broken Teeth: Yes, Upper and Lower Heart: RRR Lungs: CTA Assessment and Plan Assessment Anesthesia Assessment: Anesthesia Plan Discussed and Chart Reviewed Final Anesthetic Review Family History of Problems with Anesthesia: No History of Problems with Anesthesia: No NPO: Yes ASA Class: III Final Preanesthetic Review: Meds/Allgs Chart Reviewed, Consent Obtained/Reviewed and Anes Risks/Benef Reviewed Patient Risk: Intermediate Procedure Risk: Intermediate Anesthetic Plan Anesthetic Plan: GA Disposition: Standard PACU
--- NOTE | 2021-10-24 08:39 | ECG_ITS ---
Test Reason : CHEST PAIN Blood Pressure : / mmHG Vent. Rate : 070 BPM Atrial Rate : 070 BPM P-R Int : 134 ms QRS Dur : 074 ms QT Int : 396 ms P-R-T Axes : 004 022 054 degrees QTc Int : 427 ms Normal sinus rhythm Normal ECG When compared with ECG of 19-OCT-2021 20:29, No significant change was found Referred By: Phillip Rangel Electronically Signed By:MARI ROTHMAN
[2021-10-24 09:25] LABS: Troponin-I High Sensitivity < 3.5 ng/L (<3.5-17.0)
--- NOTE | 2021-10-24 09:27 | PC.NURSE ---
Patient returned from ECT, alert, oriented x3, denies dizziness, denies headache, denies chest pain, gait steady.
--- NOTE | 2021-10-24 09:38 | PM.PNCARD ---
Subjective Subjective Date of Service: 10/24/21 Principal diagnosis: Chest pain Interval history: Asked to see the patient urgently by Dr. Rangel. Apparently patient had ECT therapy and then complained of chest pain after that. However, this time, she states that she is doing good. No further chest pains. In fact she cannot remember the fact that she had chest pain. However the nurse was with her states that immediately after the ECT, she had stated that she was not feeling well and when she questioned her as to what was wrong, she had mentioned about chest pain. At this time when I am evaluating her, she denies any cardiac complaints whatsoever. Review of Systems Review of Systems Yes all other systems are reviewed and are negative Constitutional: Reports as per HPI Eyes: Reports as per HPI Reports as per HPI Cardiovascular: Reports as per HPI, Denies acrocyanosis, Denies cool extremities, Denies chest pain, Denies leg edema, Denies lightheadedness, Denies palpitations and Denies dyspnea Respiratory: Reports as per HPI, Reports no additional respiratory complaints and Denies dyspnea Gastrointestinal: Reports as per HPI and Reports no additional gastrointestinal complaints Genitourinary: Reports as per HPI Musculoskeletal: Reports no additional musculoskeletal complaints and Reports as per HPI Skin/Breast: Reports system reviewed and no additional complaints, except as docu Reports system reviewed and no additional complaints, except as documented and Reports as per HPI Psychiatric: Reports no additional psychiatric complaints and Reports as per HPI Endocrine: Reports no additional endocrine complaints, Reports as per HPI and Denies palpitations Hematologic/Lymphatic: Reports no additional hematologic/lymphatic complaints and Reports as per HPI Allergic/Immunologic: Reports no additional allergic/immunologic complaints and Reports as per HPI Physical Exam Vital Signs: Last Vital Signs Temp 97.8 F 10/24/21 09:22 Pulse 69 10/24/21 09:22 Resp 20 10/24/21 09:22 BP 124/74 10/24/21 09:22 Pulse Ox 97 10/24/21 09:22 BMI result Body Mass Index 23.4 Const General: comfortable and no acute distress Orientation/consciousness: patient oriented x3 HEENT Other: Unremarkable Head: Yes normal to inspection Neck Neck: Yes normal visual inspection Chest Chest palpation & inspection: normal inspection of the chest Resp Auscultation: clear to auscultation bilaterally Cardio Palpation: normal PMI Heart sounds: S1 normal heart sound present, S2 normal heart sound present, no gallops, no murmurs and no rubs GI Palpation (GI): Soft to palpation Back/Spine/Pelvis Other: unremarkable Skin General skin exam: no rashes or lesions noted Neuro General: patient oriented x3 Extrem General: Yes normal to inspection Psych Mental Status: mental status grossly normal Objective Labs and Meds Result diagrams: 09/14/21 07:24 10/07/21 08:17 Lab results: Laboratory Results - last 24 hr 10/24/21 08:49 Troponin I High Sens < 3.5 D Progress Note: A&P Assessment and plan (1) Chest pain: Status: Acute (2) Elevated troponin I level: Status: Acute (3) Atherosclerotic cardiovascular disease: Status: Acute Plan Cardiac studies reviewed. Static EKG performed after ECT when she complained of chest pain does not show any ischemic findings. Echocardiogram with preserved LVEF, 55-60% and no significant valvular pathology or other abnormalities. In the perfusion imaging, there was a small area of mild intensity apical ischemia with gated LVEF of 68%. High sensitivity troponins are 88, 93 and less than 3.5. Overall, recurrent chest pains after ECT therapy. Mildly abnormal stress test. EKG today nonischemic. She is also chest pain free. At this time, continue beta-blockers. She is also on Eliquis for DVT. Likely requires a diagnostic cardiac catheterization for further delineation of coronary anatomy. Timing to be decided. As she is completely symptom free at this time, may be done as an outpatient. Will follow up with you. Discussed with Dr. Rangel. Fall Risk Details Current Medications: Current Medications Acetaminophen (Acetaminophen 325 Mg Tablet) 650 mg PO Q6H PRN PRN Reason: Fever Or Pain Last Admin: 10/23/21 20:21 Dose: 650 mg Documented by: Al Hydroxide/Mg Hydroxide (Magnesium Hydrox/Alum Hydrox 30 Ml Oral.Susp) 30 ml PO Q6H PRN PRN Reason: Heartburn/Nausea Last Admin: 10/15/21 06:31 Dose: 30 ml Documented by: Apixaban (Apixaban 5 Mg Tablet) 5 mg PO BID [facility] Last Admin: 10/23/21 20:21 Dose: 5 mg Documented by: Aspirin (Aspirin Enteric Coated 81 Mg Tablet.) 81 mg PO DAILY [facility] Last Admin: 10/23/21 08:42 Dose: 81 mg Documented by: Atorvastatin Calcium (Atorvastatin Calcium 40 Mg Tablet) 40 mg PO DAILY [facility] Last Admin: 10/23/21 08:41 Dose: 40 mg Documented by: Calcium Carbonate/Cholecalciferol (Calcium + Vitamin D 250 Mg Tablet) 250 mg PO DAILY [facility] Last Admin: 10/23/21 08:41 Dose: 250 mg Documented by: Docusate Sodium (Docusate Sodium 100 Mg Capsule) 100 mg PO BID [facility] Last Admin: 10/23/21 20:22 Dose: 100 mg Documented by: Fluticasone Propionate (Fluticasone Propionate Nasal [address] [place]) 1 spray NOSTRIL-B DAILY PRN PRN Reason: Allergy Symptoms Gabapentin (Gabapentin 300 Mg Capsule) 900 mg PO BEDTIME [facility] Last Admin: 10/23/21 20:22 Dose: 900 mg Documented by: Haloperidol (Haloperidol 5 Mg Tablet) 5 mg PO Q6H PRN PRN Reason: AH Last Admin: 10/23/21 18:43 Dose: 5 mg Documented by: Hydrocortisone (Hydrocortisone 1 % Cream 28.35 Gm Tube) 1 appl TOPICAL BID PRN PRN Reason: rash Lactulose (Lactulose 20 Gm/30 Ml Solution) 10 gm PO BID PRN PRN Reason: constipation Loratadine (Loratadine 10 Mg Tablet) 10 mg PO DAILY [facility] Last Admin: 10/23/21 08:44 Dose: 10 mg Documented by: Lorazepam (Lorazepam 1 Mg Tablet) 1 mg PO BID PRN PRN Reason: Severe anxiety Last Admin: 10/22/21 22:00 Dose: 1 mg Documented by: Magnesium Hydroxide (Milk Of Magnesia 30 Ml Oral.Susp) 30 ml PO DAILY PRN PRN Reason: Constipation Melatonin (Melatonin 3 Mg Tablet) 9 mg PO BEDTIME [facility] Last Admin: 10/23/21 20:22 Dose: 9 mg Documented by: Metoprolol Tartrate (Metoprolol Tartrate 50 Mg Tablet) 50 mg PO BID [facility]; Protocol Last Admin: 10/24/21 06:07 Dose: 50 mg Documented by: Multivitamins/Vitamin C (Multivitamin Tablet) 1 tab PO DAILY [facility] Last Admin: 10/23/21 08:42 Dose: 1 tab Documented by: Nicotine Polacrilex (Nicotine Polacrilex Lozenge 2 Mg Lozenge) 2 mg BUCCAL Q1H PRN PRN Reason: Nicotine Cravings Omeprazole (Omeprazole 20 Mg Capsule.Dr) 20 mg PO BID@0630,1630 [facility] Last Admin: 10/23/21 17:20 Dose: 20 mg Documented by: Quetiapine Fumarate (Quetiapine Fumarate 100 Mg Tablet) 100 mg PO BEDTIME PRN PRN Reason: Insomnia Last Admin: 10/14/21 19:57 Dose: 100 mg Documented by: Quetiapine Fumarate (Quetiapine Fumarate 400 Mg Tablet) 800 mg PO BEDTIME [facility] Last Admin: 10/23/21 20:21 Dose: 800 mg Documented by: Quetiapine Fumarate (Quetiapine Fumarate 100 Mg Tablet) 100 mg PO BID@0900,1500 [facility] Last Admin: 10/23/21 15:13 Dose: 100 mg Documented by: Time Spent With Patient Time: Total time spent is greater than 50% in coordination of care (as documented) at patient's floor/unit and/or counseling patient: 35 Progress Note: Quality Stroke Does the patient have a stroke diagnosis?: No Procedures Date of Service Date of Service: 10/24/21
[2021-10-24] MEDS: Calcium + Vitamin D 250 MG TABLET PO (09:52)
[2021-10-24] MEDS: Atorvastatin Calcium 40 MG TABLET PO (09:52)
[2021-10-24] MEDS: Docusate Sodium 100 MG CAPSULE PO ×2 (09:53→20:22)
[2021-10-24] MEDS: Apixaban 5 MG TABLET PO ×2 (09:53→20:22)
[2021-10-24] MEDS: Omeprazole 20 MG CAPSULE.DR PO ×2 (09:53→16:49)
[2021-10-24] MEDS: Aspirin Enteric Coated 81 MG TABLET.DR PO (09:54)
[2021-10-24] MEDS: Multivitamin TABLET 1 TAB PO (09:54)
[2021-10-24] MEDS: QUEtiapine Fumarate 100 MG TABLET PO ×3 (09:54→20:22)
[2021-10-24] MEDS: Loratadine 10 MG TABLET PO (09:55)
[2021-10-24] MEDS: Acetaminophen 325 MG TABLET 650 MG PO ×2 (10:42→20:21)
[2021-10-24 12:43] LABS: Troponin-I High Sensitivity 6.2 ng/L (<3.5-17.0)
--- NOTE | 2021-10-24 15:02 | HO.PSYCHPN ---
Subjective Subjective Date of Service: 10/24/21 Reason For Visit: Psychosis Interim History: i feel a lot more relaxed. grounded. calm. was feeling overwhelmed last night, haldol helped. planning for weds discharge. laughing today, excited to discharge and see her dog. per staff, c/o anx/dep. wants to DC to see her dog. slept through the night. no SI/HI/AVH. eves asking to discharge. asked for and got haldol 5 mg at 1845 for weird thoughts. Mental Status Exam Mental Status Exam Narrative: Pt is alert and oriented; behavior is cooperative and calm; dressed in casual attire with adequate hygiene; affect full range; eye contact appropriate; Speech is normal rate, volume and prosody; no psychomotor agitation/retardation present; thought process is organized and goal directed; Thought content is on tx, no paranoia or delusions expressed; no SI/HI/AVH expressed; Patients insight and judgment are improving. Diagnostics Vital Signs (24Hr): Vital Signs - 24 hr 10/23/21 18:00 10/24/21 05:56 10/24/21 06:00 Temperature 97.9 F 98.4 F 98.4 F Pulse Rate 88 75 75 Respiratory Rate 18 18 18 Blood Pressure 108/64 114/75 114/75 Pulse Oximetry 97 97 97 10/24/21 06:36 10/24/21 08:20 10/24/21 08:25 Temperature 97.3 F 98.1 F Pulse Rate 74 66 72 Respiratory Rate 18 20 20 Blood Pressure 114/73 195/92 H 157/93 H Pulse Oximetry 97 95 94 10/24/21 08:30 10/24/21 08:35 10/24/21 08:50 Temperature 98.4 F Pulse Rate 70 70 69 Respiratory Rate 18 19 18 Blood Pressure 132/80 121/79 121/73 Pulse Oximetry 94 94 96 10/24/21 09:05 10/24/21 09:22 Temperature 97.8 F Pulse Rate 69 69 Respiratory Rate 19 20 Blood Pressure 114/75 124/74 Pulse Oximetry 96 97 BMI result Body Mass Index 23.4 Labs Results: 09/14/21 07:24 10/07/21 08:17 Labs: Laboratory Results - last 48 hr 10/24/21 10/24/21 08:49 12:14 Troponin I High Sens < 3.5 D 6.2 D Imaging Radiology Impressions: ITS Impressions Head CT 09/13/21 12:37 IMPRESSION: No acute intracranial findings. Myocardial Perfusion Scan Nuc Med 10/21/21 09:25 Impression: 1. Small area of mild intensity apical ischemia 2. Gated LVEF is 68% 3. Transient ischemic dilatation not present Stress EKG is negative for ischemia Medications Medications Current Medications Acetaminophen (Acetaminophen 325 Mg Tablet) 650 mg PO Q6H PRN PRN Reason: Fever Or Pain Last Admin: 10/24/21 10:42 Dose: 650 mg Documented by: Al Hydroxide/Mg Hydroxide (Magnesium Hydrox/Alum Hydrox 30 Ml Oral.Susp) 30 ml PO Q6H PRN PRN Reason: Heartburn/Nausea Last Admin: 10/15/21 06:31 Dose: 30 ml Documented by: Apixaban (Apixaban 5 Mg Tablet) 5 mg PO BID [facility] Last Admin: 10/24/21 09:53 Dose: 5 mg Documented by: Aspirin (Aspirin Enteric Coated 81 Mg Tablet.) 81 mg PO DAILY [facility] Last Admin: 10/24/21 09:54 Dose: 81 mg Documented by: Atorvastatin Calcium (Atorvastatin Calcium 40 Mg Tablet) 40 mg PO DAILY [facility] Last Admin: 10/24/21 09:52 Dose: 40 mg Documented by: Calcium Carbonate/Cholecalciferol (Calcium + Vitamin D 250 Mg Tablet) 250 mg PO DAILY [facility] Last Admin: 10/24/21 09:52 Dose: 250 mg Documented by: Docusate Sodium (Docusate Sodium 100 Mg Capsule) 100 mg PO BID [facility] Last Admin: 10/24/21 09:53 Dose: 100 mg Documented by: Fluticasone Propionate (Fluticasone Propionate Nasal 16 [address] [place]) 1 spray NOSTRIL-B DAILY PRN PRN Reason: Allergy Symptoms Gabapentin (Gabapentin 300 Mg Capsule) 900 mg PO BEDTIME [facility] Last Admin: 10/23/21 20:22 Dose: 900 mg Documented by: Haloperidol (Haloperidol 5 Mg Tablet) 5 mg PO Q6H PRN PRN Reason: Last Admin: 10/23/21 18:43 Dose: 5 mg Documented by: Hydrocortisone (Hydrocortisone 1 % Cream 28.35 Gm Tube) 1 appl TOPICAL BID PRN PRN Reason: rash Lactulose (Lactulose 20 Gm/30 Ml Solution) 10 gm PO BID PRN PRN Reason: constipation Loratadine (Loratadine 10 Mg Tablet) 10 mg PO DAILY [facility] Last Admin: 10/24/21 09:55 Dose: 10 mg Documented by: Lorazepam (Lorazepam 1 Mg Tablet) 1 mg PO BID PRN PRN Reason: Severe anxiety Last Admin: 10/22/21 22:00 Dose: 1 mg Documented by: Magnesium Hydroxide (Milk Of Magnesia 30 Ml Oral.Susp) 30 ml PO DAILY PRN PRN Reason: Constipation Melatonin (Melatonin 3 Mg Tablet) 9 mg PO BEDTIME [facility] Last Admin: 10/23/21 20:22 Dose: 9 mg Documented by: Metoprolol Tartrate (Metoprolol Tartrate 50 Mg Tablet) 50 mg PO BID [facility]; Protocol Last Admin: 10/24/21 06:07 Dose: 50 mg Documented by: Multivitamins/Vitamin C (Multivitamin Tablet) 1 tab PO DAILY [facility] Last Admin: 10/24/21 09:54 Dose: 1 tab Documented by: Omeprazole (Omeprazole 20 Mg Capsule.Dr) 20 mg PO BID@0630,1630 [facility] Last Admin: 10/24/21 09:53 Dose: 20 mg Documented by: Quetiapine Fumarate (Quetiapine Fumarate 100 Mg Tablet) 100 mg PO BEDTIME PRN PRN Reason: Insomnia Last Admin: 10/14/21 19:57 Dose: 100 mg Documented by: Quetiapine Fumarate (Quetiapine Fumarate 400 Mg Tablet) 800 mg PO BEDTIME [facility] Last Admin: 10/23/21 20:21 Dose: 800 mg Documented by: Quetiapine Fumarate (Quetiapine Fumarate 100 Mg Tablet) 100 mg PO BID@0900,1500 [facility] Last Admin: 10/24/21 09:54 Dose: 100 mg Documented by: Allergies Allergies Allergy/AdvReac Type Severity Reaction Status Date / Time bee pollen Allergy Severe Anaphylaxis Verified 08/25/21 12:46 levofloxacin [From Levaquin] Allergy Severe Itching Verified 08/25/21 12:46 enoxaparin [From Lovenox] Allergy Intermediate Rash Verified 09/12/21 13:58 Penicillins Allergy Unknown Unknown Verified 08/25/21 12:46 Assessment & Plan Assessment & Plan (1) Chest pain: Status: Acute Code(s): R07.9 - Chest pain, unspecified (2) Elevated troponin I level: Status: Acute Code(s): R77.8 - Other specified abnormalities of plasma proteins (3) Atherosclerotic cardiovascular disease: Status: Acute Code(s): I25.10 - Atherosclerotic heart disease of [place] coronary artery without angina pectoris Assessment and Plan: Cardiac studies reviewed. Static EKG performed after ECT when she complained of chest pain does not show any ischemic findings. Echocardiogram with preserved LVEF, 55-60% and no significant valvular pathology or other abnormalities. In the perfusion imaging, there was a small area of mild intensity apical ischemia with gated LVEF of 68%. High sensitivity troponins are 88, 93 and less than 3.5. Overall, recurrent chest pains after ECT therapy. Mildly abnormal stress test. EKG today nonischemic. She is also chest pain free. At this time, continue beta-blockers. She is also on Eliquis for DVT. Likely requires a diagnostic cardiac catheterization for further delineation of coronary anatomy. Timing to be decided. As she is completely symptom free at this time, may be done as an outpatient. Will follow up with you. Discussed with Dr. Rangel. (4) Bipolar 1 disorder: Status: Acute Code(s): F31.9 - Bipolar disorder, unspecified Plan 65yo F admitted to inpatient psychiatry;s/p L TKA 08/09/21 who developed a LLE DVT diagnosed 09/05/21 treated with apixaban initially, but then refused PO intake;switched to enoxaparin but then developed a rash;hospitalists consulted for management of DVT; started on Fondaparinux secondary to noncompliance with oral therapies.? Now taking orals without incident.? Switched to Eliquis.? Requested clearance for ECT 1 LLE DVT -excepting Eliquis -will need 3 months of therapy then repeat ultrasound to document clearance -should complaints change can restartFondaparinux 7.5mg SC daily 2. Bipolar disorder - patient is a moderate but acceptable risk for ECT and can proceed as per Dr. Meredith (2) Bipolar 1 disorder: ?Status:?Acute ?Code(s): F31.9 - Bipolar disorder, unspecified Plan ativan 1 mg TID for recent catatonia decreased to 0.5 TID as of 10/10 as pt has recently improved substantially.? taper off. oxycontin DCed. fondaparinux 7.5 mg SQ daily for clot prophylaxis DCed 10/10 in favor of eliquis PO 5 BID. committed and medications ordered by court 09/20. haldol and ativan IM back-up for med refusal. continues to require regular IMs as of 10/03 due to refusing PO medications.? by 10/10 taking meds all PO. haldol IM back-up increased from 5 mg BID PRN to 7.5 mg BID PRN as of 09/28. ativan back-up increased from 1 mg to 2 mg 09/30. labs 10/07 reassuring re kidney fxn. work toward restoring home psych med regimen.? seroquel changed from 200 TID to 600 QHS as of 10/10. requesting ECT.? referred to [facility] med clearance completed. will need to get ECT added to court order in order to proceed, however. seroquel increased to 800 QHS as of 10/11. seroquel 100 QAM and Q3pm added 10/12 due to ongoing delusions and agitation. ativan 0.5 mg TID reinstated as well 10/12. communicated with counter server 10/12 to have ECT added to Tx plan. 10/15:? Continue current regimen and plans with no changes made today 10/16: Continue current plans and regimen with change of gabapentin to 900 mg at night 10/17 Continues to complain of auditory hallucinations which are bothersome discontinued Thorazine p.r.n. since not effective Will start Haldol 5 mg p.r.n. to see if can help with AH; patient already on low potency antipsychotic Seroquel; will try a higher potency medication to see if more effective as a prn 10/18: ECT to start tomorrow.? NPO after MN. 10/19: paranoid and delusional 10/21: less paranoid and delusional.? cleared by cardiology for ECT sunday.? anti-hypertensives being added by cards and titrated over w/e. 10/24: had CP after ECT sunday. will hold on ECT until outpatient angiogram is completed. discharge . I spent __25____ minutes with the patient and/or on the patient floor today, greater than?50% of which was spent counseling/coordinating care. Reason for contiued inpatient stay Substantial Risk for: inability to function and rapid decompensation
--- NOTE | 2021-10-24 15:04 | MHC.CLN ---
F/U PO INTAKE GOOD PER NSG DIET RX:REGULAR-APPROPRIATE NO SUPPLEMENTS PER PATIENT PREFERENCE. DID NOT LIKE ENSURE OR MAGIC CUP. WEIGHT=65.9 KG, CONTINUES SHOWING FAVORABLE WEIGHT GAIN CONTINUE TO MONITOR INTAKE, WEIGHTS, AND LABS. RD FOLLOWS WEEKLY.
--- NOTE | 2021-10-24 17:43 | PC.NURSE ---
Patient reporting chest pain, left sided. MD notified.
--- NOTE | 2021-10-24 17:44 | ECG_ITS ---
Test Reason : cp Blood Pressure : / mmHG Vent. Rate : 075 BPM Atrial Rate : 075 BPM P-R Int : 146 ms QRS Dur : 072 ms QT Int : 402 ms P-R-T Axes : 040 043 056 degrees QTc Int : 448 ms Normal sinus rhythm Normal ECG When compared with ECG of 24-OCT-2021 08:38, No significant change was found Referred By: Javier Mccabe Electronically Signed By:
--- NOTE | 2021-10-24 17:52 | PC.NURSE ---
STAT EKG ordered, supervisor winding department notified. Patient denies chest pain at this time.
--- NOTE | 2021-10-24 18:40 | PC.NURSE ---
Late entry: EKG completed, sent to Dr. Mccabe for evaluation. No further orders, patient denies any further chest pain.
[2021-10-24] MEDS: LORazepam 1 MG TABLET 2 MG PO (19:02)
--- NOTE | 2021-10-24 19:13 | PC.NURSE ---
Late entry: patient reported chest pain returned, sharp, more intense, denies nausea, denies SOB, no diaphoresis, no radiation. Dr. Arias notified, stat labs ordered and completed, patient medicated as ordered. Patient now reports the pain has passed. denies any chest pain at this time.
[2021-10-24 19:23] LABS: C Reactive Protein 0.24 mg/dL (< or = 0.50)
[2021-10-24 19:28] LABS: Troponin-I High Sensitivity 5.8 ng/L (<3.5-17.0)
[2021-10-24] MEDS: Gabapentin 300 MG CAPSULE 900 MG PO (20:21)
[2021-10-24] MEDS: QUEtiapine Fumarate 400 MG TABLET 800 MG PO (20:22)
[2021-10-24] MEDS: Melatonin 3 MG TABLET 9 MG PO (20:22)
[2021-10-25 05:02] LABS: Troponin-I High Sensitivity 4.3 ng/L (<3.5-17.0)
[2021-10-25 08:41] VITALS: BP 102/57; PULSE 99; RESP 18; TEMP 35.5; O2SAT 97
[2021-10-25] MEDS: Acetaminophen 325 MG TABLET 650 MG PO (08:47)
[2021-10-25] MEDS: Docusate Sodium 100 MG CAPSULE PO ×2 (08:47→20:09)
[2021-10-25] MEDS: Aspirin Enteric Coated 81 MG TABLET.DR PO (08:47)
[2021-10-25] MEDS: Multivitamin TABLET 1 TAB PO (08:48)
[2021-10-25] MEDS: Calcium + Vitamin D 250 MG TABLET PO (08:48)
[2021-10-25] MEDS: Apixaban 5 MG TABLET PO ×2 (08:48→20:10)
[2021-10-25] MEDS: QUEtiapine Fumarate 100 MG TABLET PO ×2 (08:48→15:08)
[2021-10-25] MEDS: Loratadine 10 MG TABLET PO (08:49)
[2021-10-25] MEDS: Atorvastatin Calcium 40 MG TABLET PO (08:49)
[2021-10-25] MEDS: Metoprolol Tartrate 50 MG TABLET PO ×2 (08:49→20:09)
[2021-10-25] MEDS: Omeprazole 20 MG CAPSULE.DR PO ×2 (08:57→17:54)
--- NOTE | 2021-10-25 09:15 | PC.NURSE ---
On assessment, patient denies chest pain, no other discomfort reported. Cardiology in to evaluate.
--- NOTE | 2021-10-25 09:27 | PM.PNCARD ---
Subjective Subjective Date of Service: 10/25/21 Principal diagnosis: Chest pain Interval history: She states that she is feeling okay. No specific complaints. Has not had any chest pain or other cardiac issues the last 24 hours. Review of Systems Review of Systems Yes all other systems are reviewed and are negative Constitutional: Reports as per HPI Eyes: Reports as per HPI Reports as per HPI Cardiovascular: Reports as per HPI, Denies acrocyanosis, Denies cool extremities, Denies chest pain, Denies leg edema, Denies lightheadedness, Denies palpitations and Denies dyspnea Respiratory: Reports as per HPI, Reports no additional respiratory complaints and Denies dyspnea Gastrointestinal: Reports as per HPI and Reports no additional gastrointestinal complaints Genitourinary: Reports as per HPI Musculoskeletal: Reports no additional musculoskeletal complaints and Reports as per HPI Skin/Breast: Reports system reviewed and no additional complaints, except as docu Reports system reviewed and no additional complaints, except as documented and Reports as per HPI Psychiatric: Reports no additional psychiatric complaints and Reports as per HPI Endocrine: Reports no additional endocrine complaints, Reports as per HPI and Denies palpitations Hematologic/Lymphatic: Reports no additional hematologic/lymphatic complaints and Reports as per HPI Allergic/Immunologic: Reports no additional allergic/immunologic complaints and Reports as per HPI Physical Exam Vital Signs: Last Vital Signs Temp 95.9 F L 10/25/21 08:41 Pulse 99 10/25/21 08:41 Resp 18 10/25/21 08:41 BP 102/57 L 10/25/21 08:41 Pulse Ox 97 10/25/21 08:41 BMI result Body Mass Index 23.4 Const General: comfortable and no acute distress Orientation/consciousness: patient oriented x3 HEENT Other: Unremarkable Head: Yes normal to inspection Neck Neck: Yes normal visual inspection Chest Chest palpation & inspection: normal inspection of the chest Resp Auscultation: clear to auscultation bilaterally Cardio Palpation: normal PMI Heart sounds: S1 normal heart sound present, S2 normal heart sound present, no gallops, no murmurs and no rubs GI Palpation (GI): Soft to palpation Back/Spine/Pelvis Other: unremarkable Skin General skin exam: no rashes or lesions noted Neuro General: patient oriented x3 Extrem General: Yes normal to inspection Psych Mental Status: mental status grossly normal Objective Labs and Meds Result diagrams: 09/14/21 07:24 10/07/21 08:17 Lab results: Laboratory Results - last 24 hr 10/24/21 10/24/21 10/24/21 12:14 19:02 19:02 Total Creatine Kinase 54 Troponin I High Sens 6.2 D 5.8 C-Reactive Protein 0.24 10/25/21 04:33 Total Creatine Kinase Troponin I High Sens 4.3 C-Reactive Protein Progress Note: A&P Assessment and plan (1) Chest pain: Status: Acute (2) Elevated troponin I level: Status: Acute (3) Atherosclerotic cardiovascular disease: Status: Acute Plan As detailed as today's note, recent echocardiogram with preserved LVEF but no wall motion abnormalities. However stress perfusion imaging had shown small area of mild intensity apical ischemia. Slightly elevated high sensitivity troponins initially but as today's repeat checks were within normal limits. Overall, due to complaints of chest pain after ECT therapy, elevated troponins, abnormal stress test, reasonable to pursue cardiac catheterization for definitive diagnosis to evaluate for any hemodynamically significant CAD. Discussed about procedure in details with the patient and she is agreeable with the same. Hence we can arrange as an outpatient. At this time, she may remain on beta-blockers. She is also on Eliquis for DVT. On statins. Time Spent With Patient Time: Total time spent is greater than 50% in coordination of care (as documented) at patient's floor/unit and/or counseling patient:37min. Progress Note: Quality Stroke Does the patient have a stroke diagnosis?: No Procedures Date of Service Date of Service: 10/25/21
--- NOTE | 2021-10-25 13:26 | P.PNPSI_ITS ---
Subjective Subjective Date of Service: 10/25/21 Reason For Visit: Psychosis Interim History: pt remains transformed. full range of affect, pleasant, future-oriented, cogent. denies any Weird thoughts in the past 24H. did not require any haldol in the past 24H. preparing for discharge tomorrow. i feel good. i feel normal. per staff, alert, oriented, pleasant, cheerful. D/C tomorrow. Mental Status Exam Mental Status Exam Narrative: Pt is alert and oriented; behavior is cooperative and calm; dressed in casual attire with adequate hygiene; affect full range; eye contact appropriate; Speech is normal rate, volume and prosody; no psychomotor agitation/retardation present; thought process is organized and goal directed; Thought content is on tx, no paranoia or delusions expressed; no SI/HI/AVH expressed; Patients insight and judgment are improving. Diagnostics Vital Signs (24Hr): Vital Signs - 24 hr 10/24/21 17:47 10/24/21 19:18 10/24/21 20:15 Temperature 98.2 F Pulse Rate 88 86 88 Respiratory Rate 18 18 18 Blood Pressure 115/66 139/75 114/66 Pulse Oximetry 97 97 97 10/25/21 08:41 Temperature 95.9 F L Pulse Rate 99 Respiratory Rate 18 Blood Pressure 102/57 L Pulse Oximetry 97 BMI result Body Mass Index 23.4 Labs Results: 09/14/21 07:24 10/07/21 08:17 Labs: Laboratory Results - last 48 hr 10/24/21 10/24/21 10/24/21 08:49 12:14 19:02 Total Creatine Kinase 54 Troponin I High Sens < 3.5 D 6.2 D C-Reactive Protein 0.24 10/24/21 10/25/21 19:02 04:33 Total Creatine Kinase Troponin I High Sens 5.8 4.3 C-Reactive Protein Imaging Radiology Impressions: ITS Impressions Head CT 09/13/21 12:37 IMPRESSION: No acute intracranial findings. Myocardial Perfusion Scan Nuc Med 10/21/21 09:25 Impression: 1. Small area of mild intensity apical ischemia 2. Gated LVEF is 68% 3. Transient ischemic dilatation not present Stress EKG is negative for ischemia Medications Medications Current Medications Acetaminophen (Acetaminophen 325 Mg Tablet) 650 mg PO Q6H PRN PRN Reason: Fever Or Pain Last Admin: 10/25/21 08:47 Dose: 650 mg Documented by: Al Hydroxide/Mg Hydroxide (Magnesium Hydrox/Alum Hydrox 30 Ml Oral.Susp) 30 ml PO Q6H PRN PRN Reason: Heartburn/Nausea Last Admin: 10/15/21 06:31 Dose: 30 ml Documented by: Apixaban (Apixaban 5 Mg Tablet) 5 mg PO BID [facility] Last Admin: 10/25/21 08:48 Dose: 5 mg Documented by: Aspirin (Aspirin Enteric Coated 81 Mg Tablet.) 81 mg PO DAILY [facility] Last Admin: 10/25/21 08:47 Dose: 81 mg Documented by: Atorvastatin Calcium (Atorvastatin Calcium 40 Mg Tablet) 40 mg PO DAILY [facility] Last Admin: 10/25/21 08:49 Dose: 40 mg Documented by: Calcium Carbonate/Cholecalciferol (Calcium + Vitamin D 250 Mg Tablet) 250 mg PO DAILY [facility] Last Admin: 10/25/21 08:48 Dose: 250 mg Documented by: Docusate Sodium (Docusate Sodium 100 Mg Capsule) 100 mg PO BID [facility] Last Admin: 10/25/21 08:47 Dose: 100 mg Documented by: Fluticasone Propionate (Fluticasone Propionate Nasal 16 Gm Bostic) 1 spray NOSTRIL-B DAILY PRN PRN Reason: Allergy Symptoms Gabapentin (Gabapentin 300 Mg Capsule) 900 mg PO BEDTIME [facility] Last Admin: 10/24/21 20:21 Dose: 900 mg Documented by: Haloperidol (Haloperidol 5 Mg Tablet) 5 mg PO Q6H PRN PRN Reason: AH Last Admin: 10/23/21 18:43 Dose: 5 mg Documented by: Hydrocortisone (Hydrocortisone 1 % Cream 28.35 Gm Tube) 1 appl TOPICAL BID PRN PRN Reason: rash Lactulose (Lactulose 20 Gm/30 Ml Solution) 10 gm PO BID PRN PRN Reason: constipation Loratadine (Loratadine 10 Mg Tablet) 10 mg PO DAILY [facility] Last Admin: 10/25/21 08:49 Dose: 10 mg Documented by: Magnesium Hydroxide (Milk Of Magnesia 30 Ml Oral.Susp) 30 ml PO DAILY PRN PRN Reason: Constipation Melatonin (Melatonin 3 Mg Tablet) 9 mg PO BEDTIME [facility] Last Admin: 10/24/21 20:22 Dose: 9 mg Documented by: Metoprolol Tartrate (Metoprolol Tartrate 50 Mg Tablet) 50 mg PO BID [facility]; Protocol Last Admin: 10/25/21 08:49 Dose: 50 mg Documented by: Multivitamins/Vitamin C (Multivitamin Tablet) 1 tab PO DAILY [facility] Last Admin: 10/25/21 08:48 Dose: 1 tab Documented by: Omeprazole (Omeprazole 20 Mg Capsule.) 20 mg PO BID@0630,1630 [facility] Last Admin: 10/25/21 08:57 Dose: 20 mg Documented by: Quetiapine Fumarate (Quetiapine Fumarate 100 Mg Tablet) 100 mg PO BEDTIME PRN PRN Reason: Insomnia Last Admin: 10/24/21 20:22 Dose: 100 mg Documented by: Quetiapine Fumarate (Quetiapine Fumarate 400 Mg Tablet) 800 mg PO BEDTIME [facility] Last Admin: 10/24/21 20:22 Dose: 800 mg Documented by: Quetiapine Fumarate (Quetiapine Fumarate 100 Mg Tablet) 100 mg PO BID@0900,1500 [facility] Last Admin: 10/25/21 08:48 Dose: 100 mg Documented by: Allergies Allergies Allergy/AdvReac Type Severity Reaction Status Date / Time bee pollen Allergy Severe Anaphylaxis Verified 08/25/21 12:46 levofloxacin [From Levaquin] Allergy Severe Itching Verified 08/25/21 12:46 enoxaparin [From Lovenox] Allergy Intermediate Rash Verified 09/12/21 13:58 Penicillins Allergy Unknown Unknown Verified 08/25/21 12:46 Assessment & Plan Assessment & Plan (1) Chest pain: Status: Acute Code(s): R07.9 - Chest pain, unspecified (2) Elevated troponin I level: Status: Acute Code(s): R77.8 - Other specified abnormalities of plasma proteins (3) Atherosclerotic cardiovascular disease: Status: Acute Code(s): I25.10 - Atherosclerotic heart disease of k[place] coronary artery without angina pectoris Assessment and Plan: As detailed as today's note, recent echocardiogram with preserved LVEF but no wall motion abnormalities. However stress perfusion imaging had shown small area of mild intensity apical ischemia. Slightly elevated high sensitivity troponins initially but as today's repeat checks were within normal limits. Overall, due to complaints of chest pain after ECT therapy, elevated troponins, abnormal stress test, reasonable to pursue cardiac catheterization for definitive diagnosis to evaluate for any hemodynamically significant CAD. Discussed about procedure in details with the patient and she is agreeable with the same. Hence we can arrange as an outpatient. At this time, she may remain on beta-blockers. She is also on Eliquis for DVT. On statins. (4) Bipolar 1 disorder: Status: Acute Code(s): F31.9 - Bipolar disorder, unspecified Plan 65yo F admitted to inpatient psychiatry;s/p L TKA 08/09/21 who developed a LLE DVT diagnosed 09/05/21 treated with apixaban initially, but then refused PO intake;switched to enoxaparin but then developed a rash;hospitalists consulted for management of DVT; started on Fondaparinux secondary to noncompliance with oral therapies.? Now taking orals without incident.? Switched to Eliquis.? Requested clearance for ECT 1 LLE DVT -excepting Eliquis -will need 3 months of therapy then repeat ultrasound to document clearance -should complaints change can restartFondaparinux 7.5mg SC daily 2. Bipolar disorder - patient is a moderate but acceptable risk for ECT and can proceed as per Dr. Meredith (2) Bipolar 1 disorder: ?Status:?Acute ?Code(s): F31.9 - Bipolar disorder, unspecified Plan ativan 1 mg TID for recent catatonia decreased to 0.5 TID as of 10/10 as pt has recently improved substantially.? taper off. oxycontin DCed. fondaparinux 7.5 mg SQ daily for clot prophylaxis DCed 10/10 in favor of eliquis PO 5 BID. committed and medications ordered by court 09/20. haldol and ativan IM back-up for med refusal. continues to require regular IMs as of 10/03 due to refusing PO medications.? by 10/10 taking meds all PO. haldol IM back-up increased from 5 mg BID PRN to 7.5 mg BID PRN as of 09/28. ativan back-up increased from 1 mg to 2 mg 09/30. labs 10/07 reassuring re kidney fxn. work toward restoring home psych med regimen.? seroquel changed from 200 TID to 600 QHS as of 10/10. requesting ECT.? referred to bonnie, med clearance completed. will need to get ECT added to court order in order to proceed, however. seroquel increased to 800 QHS as of 10/11. seroquel 100 QAM and Q3pm added 10/12 due to ongoing delusions and agitation. ativan 0.5 mg TID reinstated as well 10/12. communicated with veterinary milk specialist 10/12 to have ECT added to Tx plan. 10/15:? Continue current regimen and plans with no changes made today 10/16: Continue current plans and regimen with change of gabapentin to 900 mg at night 10/17 Continues to complain of auditory hallucinations which are bothersome discontinued Thorazine p.r.n. since not effective Will start Haldol 5 mg p.r.n. to see if can help with AH; patient already on low potency antipsychotic Seroquel; will try a higher potency medication to see if more effective as a prn 10/18: ECT to start tomorrow.? NPO after MN. 10/19: paranoid and delusional 10/21: less paranoid and delusional.? cleared by cardiology for ECT sunday.? anti-hypertensives being added by cards and titrated over w/e. 10/24: had CP after ECT sunday.? will hold on ECT until outpatient angiogram is completed.? discharge . 10/25: stable. discussed angiogram scheduling with cards. DC tomorrow. I spent ___25___ minutes with the patient and/or on the patient floor today, greater than?50% of which was spent counseling/coordinating care. Reason for contiued inpatient stay Substantial Risk for: inability to function and rapid decompensation
[2021-10-25 13:27] LABS: Troponin-I High Sensitivity < 3.5 ng/L (<3.5-17.0)
[2021-10-25] MEDS: QUEtiapine Fumarate 400 MG TABLET 800 MG PO (20:08)
[2021-10-25] MEDS: Melatonin 3 MG TABLET 9 MG PO (20:09)
[2021-10-25] MEDS: Gabapentin 300 MG CAPSULE 900 MG PO (20:10)
[2021-10-25] MEDS: HaloperidoL 5 MG TABLET PO (20:10)
[2021-10-25 20:40] VITALS: BP 114/64; PULSE 96; RESP 18; TEMP 36.7; O2SAT 95
[2021-10-26] MEDS: Omeprazole 20 MG CAPSULE.DR PO (06:31)
[2021-10-26] MEDS: Aspirin Enteric Coated 81 MG TABLET.DR PO (08:20)
[2021-10-26] MEDS: Atorvastatin Calcium 40 MG TABLET PO (08:20)
[2021-10-26] MEDS: QUEtiapine Fumarate 100 MG TABLET PO (08:20)
[2021-10-26] MEDS: Metoprolol Tartrate 50 MG TABLET PO (08:20)
[2021-10-26] MEDS: Loratadine 10 MG TABLET PO (08:20)
[2021-10-26] MEDS: Apixaban 5 MG TABLET PO (08:20)
[2021-10-26] MEDS: Calcium + Vitamin D 250 MG TABLET PO (08:20)
[2021-10-26] MEDS: Docusate Sodium 100 MG CAPSULE PO (08:21)
[2021-10-26] MEDS: Multivitamin TABLET 1 TAB PO (08:21)
[2021-10-26 08:23] VITALS: BP 114/74; PULSE 81; RESP 18; TEMP 36.4; O2SAT 97
--- NOTE | 2021-10-26 10:08 | P.DS_ITS ---
DS: Providers Provider Date of Service: 10/26/21 Date of admission: 09/09/21 15:26 Primary care physician: Unknown Physician Consults: 09/12/21 09:37 Consult to Hospitalist Routine Consulting Provider: Hospitalist Reason For Exam: rash spread across trunk and extremeties in 14 hrs 09/15/21 17:20 Consult to Hematology / Oncology Routine Consulting Provider: [facility] Oncology/Hematology Reason for consultation: DVT. Refusing all POs. Rash with Lovenox. ?Use Arixtra 10/10/21 13:51 Consult to Hospitalist Routine Consulting Provider: Hospitalist Reason For Exam: ECT clearance 10/19/21 20:50 Consult to Hospitalist Stat Consulting Provider: Hospitalist Reason For Exam: chest pain with high troponin levels. ECT today. 10/20/21 07:03 Consult to Cardiology Routine Consulting Provider: Kraig Ivy Reason for consultation: chest pain, elevated troponin ? ok to cont ect Has provider been notified: No 10/20/21 09:59 Consult to Cardiology Routine Consulting Provider: Kraig Ivy Reason for consultation: chest pain and troponin bump last robby Has provider been notified: Yes DS: Diagnosis Discharge Diagnosis (1) Chest pain: Status: Resolved (2) Elevated troponin I level: Status: Resolved (3) Atherosclerotic cardiovascular disease: Status: Acute (4) Bipolar 1 disorder: Status: Acute DS: Medications Discharge Medications Home Medications: Home Medications Medication Instructions Recorded Confirmed omeprazole 20 mg capsule,delayed 20 mg PO BID 05/09/21 09/08/21 release biotin 5,000 mcg sublingual tablet 5,000 mcg SUBLINGUAL DAILY 07/21/21 09/08/21 calcium carbonate 600 mg-vitamin 1 tab PO DAILY #0 07/21/21 09/08/21 D3 5 mcg (200 unit) tablet docusate sodium 100 mg capsule 1 cap PO BID 07/21/21 09/08/21 fluticasone propionate 50 1 spray INTRANASAL DAILY PRN 07/21/21 09/08/21 mcg/actuation nasal spray,suspension loratadine 10 mg tablet (Claritin) 10 mg PO DAILY PRN 07/21/21 09/08/21 melatonin 5 mg tablet 10 mg PO BEDTIME 07/21/21 09/08/21 multivitamin 1 tab PO DAILY 07/21/21 09/08/21 quetiapine 400 mg tablet 800 mg PO BEDTIME 07/21/21 09/08/21 lactulose 10 gram/15 mL oral 15 ml PO BID PRN 09/05/21 09/08/21 solution lorazepam 0.5 mg tablet 1 tab PO BEDTIME PRN 09/05/21 09/08/21 quetiapine 100 mg tablet 100 mg PO BEDTIME PRN 09/05/21 09/08/21 acetaminophen 325 mg tablet 650 mg PO Q6H PRN 09/08/21 09/08/21 lorazepam 0.5 mg tablet (Ativan) 0.5 mg PO Q6H PRN 09/08/21 09/08/21 Previous Rx's Medication Instructions Recorded apixaban 5 mg tablet 5 mg PO BID 30 Days #60 tab 10/26/21 aspirin 81 mg tablet,delayed 81 mg PO DAILY 30 Days #30 tab 10/26/21 release atorvastatin 40 mg tablet 40 mg PO DAILY 30 Days #30 tab 10/26/21 gabapentin 300 mg capsule 900 mg PO BEDTIME 30 Days #90 cap 10/26/21 metoprolol tartrate 50 mg tablet 50 mg PO BID 30 Days #60 tab 10/26/21 Mental Status Exam Mental Status Exam Narrative: Pt is alert and oriented; behavior is cooperative and calm; dressed in casual attire with adequate hygiene; affect full range; eye contact appropriate; Speech is normal rate, volume and prosody; no psychomotor agitation/retardation present; thought process is organized and goal directed; Thought content is on tx, no paranoia or delusions expressed; no SI/HI/AVH; Patients insight and judgment are improving. Data Data Completed and Pending Completed studies during hospitalization [Text1]: 10/19/21 10/19/21 10/19/21 20:05 20:05 23:08 Total Creatine Kinase 57 Troponin I High Sens 88.4 H* 93.0 H* C-Reactive Protein 10/24/21 10/24/21 10/24/21 08:49 12:14 19:02 Total Creatine Kinase 54 Troponin I High Sens < 3.5 D 6.2 D C-Reactive Protein 0.24 10/24/21 10/25/21 10/25/21 19:02 04:33 12:50 Total Creatine Kinase Troponin I High Sens 5.8 4.3 < 3.5 C-Reactive Protein Imaging Diagnostic Imaging Impressions Head CT 09/13/21 12:37 IMPRESSION: No acute intracranial findings. Myocardial Perfusion Scan Nuc Med 10/21/21 09:25 Impression: 1. Small area of mild intensity apical ischemia 2. Gated LVEF is 68% 3. Transient ischemic dilatation not present Stress EKG is negative for ischemia DS: Summary Hospital Course Hospital Course: per 09/09 admission note: Steffi is a 65 y.o. female who carries a dx of VITO, bipolar I disorder, and has hx of ECT treatment. She recently underwent a successful left total knee arthroplasty on 08/09/[address] Hudson. She presented to [facility] ED on 09/08/21 due to increased anxiety, depression, racing thoughts, poor sleep, and flashbacks. She arrived from [facility] via EMS after having been readmitted there 2 days ago and presented as disruptive, delusional, perseverative on . Per [facility] RN, pt was at the facility 2 weeks ago and this is not her baseline, as she had never displayed these symptoms. She required a 1:1 during her most recent admission and had decreased sleep, poor appetite. Pt?s sister also reported that pt was doing very well prior to her knee surgery, able to care for herself independently at home. Per CARE team eval, precipitating factors include possible med non-adherence and pt reported she had a verbal altercation with her brother.? Pt denied SI/SIB/HI. Stated I just don't feel right and need to talk to someone. Per CARE team clinician, pt was disorganized, self dialoguing, unable to provide history, and became increasingly confused and catatonic. In the ED she was refusing all care, non- adherent with PO meds, and unable to provide RN with a urine sample. She eventually required a straight cath and urinalysis was negative.? I attempted to interview pt, however she presented as catatonic, i.e. she was not responding to questions, would stare blankly. Pt would not get out of bed, refused interventions. Pt not taking anything PO, i.e. not taking in fluids or medication. Past Psychiatric History: -Psych provider is [facility] Sanchez in [place] -Per sister, pt has had depression since her early 20s and has suffered from unspecified chronic pain, surgeries.? -Hx of multiple psych admissions to [facility] Medical Evaluation Reviewed: Yes PMFSH Medical History? Anxiety Bipolar 1 disorder Constipation GERD (gastroesophageal reflux disease) History of electroconvulsive therapy Hx of skin cancer, basal cell Hx of thyroid nodule Insomnia Murmur, cardiac Osteopenia Seasonal allergies Narrative: -Pt was recently admitted to [facility] on 08/09/21-08/13/2021 due to successful left total knee arthroplasty, she was to be discharged to [facility] for STR. On 09/05/21 pt was seen at [facility] ED due to complaint of persistent pain since surgery. An ultrasound was positive for acute DVT in the left posterior tibial vein. Pt was started on eliquis. She was then readmitted to [facility] for STR, PT.? Surgical History? H/O elbow surgery History of back surgery Hx of colonoscopy Family History: -Depression. In 1998 her great grandfather hung himself. Social History: -Pt has never been , no children. One dog -Pt's mother (age 88), sister, and brother are involved with pt's care.? -She graduated h.s. And has bachelors in psychology. She worked at [facility]. Substance History: -Utox positive for Opiates, pt is prescribed oxycontin Precis: ativan 1 mg TID for recent catatonia decreased to 0.5 TID as of 10/10 as pt has recently improved substantially.? taper off. oxycontin DCed. fondaparinux 7.5 mg SQ daily for clot prophylaxis DCed 10/10 in favor of eliquis PO 5 BID. committed and medications ordered by court 09/20. haldol and ativan IM back-up for med refusal. continued to require regular IMs as of 10/03 due to refusing PO medications.? by 10/10 taking meds all PO. haldol IM back-up increased from 5 mg BID PRN to 7.5 mg BID PRN as of 09/28. ativan back-up increased from 1 mg to 2 mg 09/30. labs 10/07 reassuring re kidney fxn. work toward restoring home psych med regimen.? seroquel changed from 200 TID to 600 QHS as of 10/10. requesting ECT.? referred to mandy nicole clearance completed. will need to get ECT added to court order in order to proceed, however. seroquel increased to 800 QHS as of 10/11. seroquel 100 QAM and Q3pm added 10/12 due to ongoing delusions and agitation. ativan 0.5 mg TID reinstated as well 10/12. communicated with wood craftsman 10/12 to have ECT added to Tx plan. 10/15:? Continued current regimen and plans with no changes made today 10/16: Continued current plans and regimen with change of gabapentin to 900 mg at night 10/17 Continues to complain of auditory hallucinations which are bothersome discontinued Thorazine p.r.n. since not effective Will start Haldol 5 mg p.r.n. to see if can help with AH; patient already on low potency antipsychotic Seroquel; will try a higher potency medication to see if more effective as a prn 10/18: ECT to start tomorrow.? NPO after MN. 10/19: paranoid and delusional 10/21: less paranoid and delusional.? cleared by cardiology for ECT sunday.? anti-hypertensives being added by cards and titrated over w/e. 10/24: had CP after ECT sunday.? will hold on ECT until outpatient angiogram is completed.? discharge . 10/25: stable.? discussed angiogram scheduling with cards.? DC tomorrow. 10/26: discharged to outpt F/U. Time Spent with Patient Time attestation: Total time spent providing and/or coordinating discharge services: Discharge Plan Discharge Patient Disposition: Home, Self-Care Discharge Diagnosis: Bipolar I Disorder, MRE mixed Referrals: GERTRUDE SANCHEZ APRN [Other] - 11/08/21 3:00 pm (IN PERSON) Dr. Jairon Márquez [Other] - 1 Week Ana Polk (therapists @ [facility]) [Other] - 10/28/21 3:00 pm (Appt scheduled for 10/28/21 @ 3 PM In-OFFICE visit.) [place] [Physician] - 1 Week Discharge Medications: New metoprolol tartrate 50 mg Tablet 50 mg PO BID 30 Days Qty: 60 0RF Protocol: Hold for SBP/HR < HOLD for SBP < : 90 HOLD for HR < : 60 gabapentin 300 mg Capsule 900 mg PO BEDTIME 30 Days Qty: 90 0RF Continued acetaminophen 325 mg Tablet 650 mg PO Q6H PRN (Reason: Fever Or Pain) apixaban 5 mg Tablet 5 mg PO BID 30 Days Qty: 60 0RF Rx Instructions: start on 09/14 quetiapine 400 mg tablet 800 mg PO BEDTIME melatonin 5 mg tablet 10 mg PO BEDTIME docusate sodium 100 mg capsule 1 cap PO BID multivitamin Tablet 1 tab PO DAILY calcium carbonate-vitamin D3 600 mg-5 mcg (200 unit) Tablet 1 tab PO DAILY Qty: 0 biotin 5,000 mcg Tablet, Sublingual 5,000 mcg SUBLINGUAL DAILY loratadine [Claritin] 10 mg Tablet 10 mg PO DAILY PRN (Reason: Allergy Symptoms) fluticasone propionate 50 mcg/actuation spray,suspension 1 spray intranasal DAILY PRN (Reason: Allergy Symptoms) lorazepam 0.5 mg tablet 1 tab PO BEDTIME PRN (Reason: Anxiety) lactulose 10 gram/15 mL solution 15 ml PO BID PRN (Reason: constipation) omeprazole 20 mg capsule,delayed release(DR/EC) 20 mg PO BID Discontinued oxycodone 5 mg Tablet 5 mg PO Q4H PRN (Reason: Pain) oxycodone [OxyContin] 10 mg Tablet,Oral Only,Ext.Rel.12 Hr 10 mg PO Q12H Eliquis DVT-PE Treat 30D Start 5 mg (74 tabs) tablets,dose pack 10 mg PO BID Rx Instructions: 10 mg twice daily for 7 days followed by 5 mg BID. Medication is for 30 days. gabapentin 400 mg capsule 800 mg PO BEDTIME Discharge Orders: Discharge Order (Routine); Ordered 10/26/21 Ordered By: Daryn Meredith Activity on Discharge: As tolerated Stand Alone Forms: Patient Portal Discharge page, Community Support Care Plan Goals: remain safe and stable in outpatient treatment setting Health Concerns: DVT atherosclerotic disease Plan of Treatment: continue medications as prescribed, attend appointments as scheduled Assessment: not at imminent risk of harm to self or others Discharge Date/Time: 10/26/21 11:00
== END 2021-10-26 11:00 | disposition home or self-care (01) | DRG 885 ==
LOC: HO.ED 19:58 → HO.PM5 09-09 15:32 → HO.PADLT16 09-09 15:53
PROVIDERS: Clinical Nurse Specialist Psychiatric/Mental Health; Clinical Nurse Specialist Psychiatric/Mental Health, Adult; Family Medicine; Internal Medicine; Nurse Practitioner Family; Psychiatry & Neurology Psychiatry; Registered Nurse; Social Worker; Student in an Organized Health Care Education/Training Program; Admitting Provider Psychiatry & Neurology Psychiatry; Emergency Provider Emergency Medicine; Visit Provider Psychiatry & Neurology Psychiatry
PROC: GZB4ZZZ Other Electroconvulsive Therapy (ICD-10-PCS; CPT 90870; principal; 2021-10-19 13:30)
DX: F31.9 Bipolar disorder, unspecified (principal); E87.0 Hyperosmolality and hypernatremia; K21.9 Gastro-esophageal reflux disease without esophagitis; F06.1 Catatonic disorder due to known physiological condition; F41.1 Generalized anxiety disorder; R07.9 Chest pain, unspecified; L27.0 Generalized skin eruption due to drugs and medicaments taken internally; T45.515A Adverse effect of anticoagulants, initial encounter; I25.10 Atherosclerotic heart disease of native coronary artery without angina pectoris; E83.52 Hypercalcemia; Z96.652 Presence of left artificial knee joint; Z85.828 Personal history of other malignant neoplasm of skin; Z20.822 Contact with and (suspected) exposure to COVID-19; Z86.718 Personal history of other venous thrombosis and embolism; Z87.891 Personal history of nicotine dependence; Z88.0 Allergy status to penicillin; Z79.01 Long term (current) use of anticoagulants; Z79.51 Long term (current) use of inhaled steroids; Z79.82 Long term (current) use of aspirin; Z79.899 Other long term (current) drug therapy
CPT/HCPCS: 36415; 70450; 78452; 80048; 80053; 80076; 80307; 81001; 82077; 82550; 83735; 84100; 84484; 85025; 85027; 85610; 85652; 85730; 86140; 87635; 90870; 93005; 93017; 93306; 97162; 99284; 99285; A9500; J0330; J1200; J1650; J1652; J2060; J2405

== ENCOUNTER 2021-11-14 08:45 | Outpatient (REF) | payer OTHER, SELFPAY ==
[2021-11-14 09:18] LABS: Hematocrit 36.2 % (37.0-47.0); Hemoglobin 11.7 g/dl (12.0-16.0); Mean Corpuscular HGB Conc 32.3 g/dl (31.0-35.0); Mean Corpuscular Hemoglobin 30.2 pg (27.0-33.0); Mean Corpuscular Volume 93.3 fL (80.0-98.0); Mean Platelet Volume 8.8 fL (9.4-12.3); Platelet Count 243 X10*3/uL (160-400); Red Blood Count 3.88 X10*6/uL (4.20-5.50); Red Cell Distribution Width 15.9 % (11.0-16.0); White Blood Count 6.4 X10*3/uL (4.8-10.8)
[2021-11-14 09:23] LABS: INTERNATIONAL NORM RATIO 1.4 (0.9-1.1); Prothrombin Time 15.6 SEC (9.9-13.0)
[2021-11-14 09:43] LABS: Anion Gap 9 (12-20); Blood Urea Nitrogen 15 mg/dL (9-16); Calcium 9.9 mg/dL (8.4-10.2); Carbon Dioxide 31 mmol/L (22-29); Chloride 105 mmol/L (96-108); Estimated Glomerular Filt Rate > 60; Glucose Random 91 mg/dL (60-115); Potassium 4.8 mmol/L (3.3-5.1); Sodium 140 mmol/L (135-145)
== END 2021-11-14 08:46 | disposition home or self-care (01) ==
LOC: HO.LAB 08:45
PROVIDERS: Visit Provider Internal Medicine
DX: R07.9 Chest pain, unspecified (principal); I25.10 Atherosclerotic heart disease of native coronary artery without angina pectoris
CPT/HCPCS: 36415; 80048; 85027; 85610

== ENCOUNTER 2021-12-05 11:55 | Outpatient (REF) | payer OTHER, SELFPAY ==
--- NOTE | ~2021-12-05 | XR_ITS ---
EXAMINATION: X-RAY LEFT KNEE X-RAY BILATERAL KNEES STANDING VIEW CLINICAL INFORMATION: Pain. COMPARISON: Radiograph of the left knee dated from 09/05/2021. Standing view of both knees 08/04/2021. TECHNIQUE: [place] and lateral views of the left knee. AP and standing view of both knees. FINDINGS: Total left knee arthroplasty without evidence of hardware failure. No acute fracture or subluxation. Moderate joint space narrowing of the medial compartment of the right knee, not significantly changed when compared to 08/04/2021. No erosions or chondrocalcinosis. No joint effusion in the left knee. There is however soft tissue swelling in the anterior surface of the left knee. XR/XR knee LT 2V IMPRESSION: 1. Total left knee arthroplasty without evidence of hardware failure or complication. 2. No acute fracture or malalignment. 3. Moderate degenerative changes in the medial compartment of the right knee, stable since 08/04/2021. 4. Nonspecific soft tissue swelling in the anterior compartment of the left knee.
--- NOTE | ~2021-12-05 | XR_ITS ---
EXAMINATION: X-RAY LEFT KNEE X-RAY BILATERAL KNEES STANDING VIEW CLINICAL INFORMATION: Pain. COMPARISON: Radiograph of the left knee dated from 09/05/2021. Standing view of both knees 08/04/2021. TECHNIQUE: [place] and lateral views of the left knee. AP and standing view of both knees. FINDINGS: Total left knee arthroplasty without evidence of hardware failure. No acute fracture or subluxation. Moderate joint space narrowing of the medial compartment of the right knee, not significantly changed when compared to 08/04/2021. No erosions or chondrocalcinosis. No joint effusion in the left knee. There is however soft tissue swelling in the anterior surface of the left knee. XR/XR knee standing BI IMPRESSION: 1. Total left knee arthroplasty without evidence of hardware failure or complication. 2. No acute fracture or malalignment. 3. Moderate degenerative changes in the medial compartment of the right knee, stable since 08/04/2021. 4. Nonspecific soft tissue swelling in the anterior compartment of the left knee.
== END 2021-12-05 11:56 | disposition home or self-care (01) ==
LOC: HO.HOSX 11:55
PROVIDERS: Visit Provider Orthopaedic Surgery
DX: Z47.1 Aftercare following joint replacement surgery (principal); Z96.652 Presence of left artificial knee joint
CPT/HCPCS: 73560; 73565

== ENCOUNTER → 2022-01-25 14:45 | Outpatient (BNVA) | payer OTHER, SELFPAY | PROVIDERS: PCP Family Medicine; Visit Provider Nurse Practitioner Family | DX: R07.89 Other chest pain (principal); R77.8 Other specified abnormalities of plasma proteins; Z98.890 Other specified postprocedural states | CPT/HCPCS: 93005; 99212 ==

== ENCOUNTER 2023-10-29 08:05 | Outpatient (REF) | payer OTHER, SELFPAY | END 2023-10-29 08:06 | disposition home or self-care (01) | LOC: HO.HOSX 08:05 | PROVIDERS: Visit Provider Orthopaedic Surgery | DX: Z13.89 Encounter for screening for other disorder (principal) ==

== ENCOUNTER 2023-11-01 15:07 | Inpatient (IN) | payer OTHER, SELFPAY ==
--- OUTSIDE RECORDS SUMMARY | 2023-11-01 15:17 | XMS_ITS | Continuity of Care Document ---
Author Organization [facility] Address [address] [place] [address]- Care Team Providers Care Substation Designer Name Role Phone Devin NAYAK, Theresa Velásquez Primary Care Physic osei Encounter [facility] Date(s): 07/07/22 - 08/06/22 [facility] [address] [place] [address]- Encounter Diagnosis Seborrheic dermatitis(Discharge Diagnosis) - 07/07/22 Allergies, Adverse Reactions, Alerts Substance Reaction Severity Status Effexor constipation Active Other Environmental Allergy Active penicillins Active Lovenox Active Levaquin H/O: penicillin allergy Acti ve Bee Stings Active Immunizations Given and Recorded Vaccine Date Status Refusal Reason SARS-CoV-2 (COVID-19) mRNA-1273 vaccine 1 04/27/22 Given SARS-CoV-2 (COVID-19) mRNA-1273 vaccine 11/29/21 R ecorded SARS-CoV-2 (COVID-19) mRNA-1273 vaccine 2 07/14/21 Given SARS-CoV-2 (COVID-19) mRNA-1273 vaccine 10/22/20 R ecorded SARS-CoV-2 (COVID-19) mRNA-1273 vaccine 09/24/20 R ecorded influenza virus vaccine, inactivated 3 04/27/22 Gi dominik influenza virus vaccine, inactivated 04/08/20 Dharmesh rded influenza virus vaccine, inactivated 02/26/19 Dharmesh rded influenza virus vaccine, inactivated 4 05/01/18 Gi dominik influenza virus vaccine, inactivated 5 05/23/17 Gi dominik influenza virus vaccine, inactivated 04/11/16 Give n influenza virus vaccine, inactivated 06/17/15 Give n influenza virus vaccine, inactivated 06/19/14 Give n tetanus/diphtheria/pertussis, acel(Tdap) 12/29/15 Given pneumococcal 23-valent vaccine 07/13/09 Given 1Result Comment: [facility]: 66004-475-82 Bivalent Booster 2Result Comment: [facility]: [address]-66 3Result Comment: [facility]: 76896-647-72 4Result Comment: [05/01/2018] [facility]# 85728-185-80 5Result Comment: [05/23/2017] [facility] 55517-155-32 Medications calcium carbonate 600 mg oral tablet 2 tablet = 1,200 mg, By Mouth, Daily, 0 Refills, Maintenance, 10/01/17 10:10:25 EDT Start Date: 10/01/17 Status: Ordered Claritin 10 mg oral tablet 10 mg, 1, tablet, By Mouth, Daily, # 90 tablet, Refills 1, Tot. Refills 1, Maintenance, 06/23/20 8:51:00 EST, Route to Pharmacy Electronically, [facility]/pharmacy #[id number], 167, cm, 05/05/20 10:33:00 EST, Height, 78.3, kg, 01/02/20 10:47:00 EDT, Dry Weight Start Date: 06/23/20 Status: Ordered cyclobenzaprine 10 mg oral tablet 10 mg, 1, tablet, By Mouth, 3 times a day, PRN, # 30 tablet, Refills 0, Tot. Refills 0, Maintenance, for spasm, 08/04/22 11:56:00 EST, Route to Pharmacy Electronically, [facility]/pharmacy #[id number], Partial fill upon patient request if the prescription is for a... Start Date: 08/04/22 Status: Ordered Doculase 100 mg oral capsule 1 capsule = 100 mg, By Mouth, 2 times a day, PRN constipation, SOFT GELS. Take with water. Stop taking if loose stools/diarrhea., # 60 capsule, 1 Refills, Soft Stop, 09/28/20 8:49:00 EDT, Capsule, [facility]/pharmacy #[id number], 167, cm, 09/09/20 11:32:00 EST, He... Start Date: 07/28/09 Stop Date: 09/23/21 Status: Ordered docusate sodium 100 mg oral capsule 1 capsule = 100 mg, By Mouth, 2 times a day, PRN for constipation, SOFT GELS. Take with water. Stoptaking if loose stools/diarrhea., # 60 capsule, 5 Refills, Maintenance, 07/19/22 15:25:00 EST, Capsule, [facility]/pharmacy #[id number], Partial fill upon patient r... Start Date: 07/19/22 Status: Ordered Flonase 50 mcg/inh nasal spray 2 sprays, Nares, Both, Daily, in each nostril, # 16 Gm, 5 Refills, Maintenance, 01/20/22 10:37:00 EDT, [facility]/pharmacy #[id number], 2 sprays Nares, Both Daily,x30 days,Instr:in each nostril, 168, cm, :17:00 EDT, Height, 69.5, kg, 12/06/21 8:17:00 EDT... Start Date: 01/20/22 Stop Date: 07/19/22 Status: Ordered gabapentin 400 mg oral capsule 400 mg, 1, capsule, By Mouth, 3 times a day, Abida Salazar NP (prescriber), Refills 0, Maintenance,02/25/18 16:37:52 EDT Start Date: 02/25/18 Status: Ordered ibuprofen 600 mg oral tablet 600 mg, 1, tablet, By Mouth, 3 times a day, PRN, # 30 tablet, Refills 0, Tot. Refills 0, Maintenance, Pain , Moderate, 08/04/22 11:57:00 EST, Route to Pharmacy Electronically, [facility]/pharmacy #[id number], Partial fill upon patient request if the prescription i... Start Date: 08/04/22 Status: Ordered lactulose 10 gm/15 ml oral syrup 15 mL, By Mouth, 2 times a day, PRN NEEDED FOR CONSTIPATION, # 900 mL, 0 Refills, [facility] STORE [id number], 30, TAKE 15 ML BY MOUTH 2 TIMES A DAY, NEEDED FOR CONSTIPATION, 167, cm, 07/14/21 8:11:00 EST,Height, 78.3, kg, 01/02/20 10:47:00 EDT, Dry Weight Start Date: 09/16/21 Status: Ordered melatonin 5 mg oral tablet 1 tablet = 5 mg, By Mouth, Daily at bedtime, PRN for insomnia, OTC, 0 Refills, Maintenance, 02/25/18 16:35:44 EDT, Tablet Start Date: 02/25/18 Status: Ordered metoprolol 50 mg oral tablet 50 mg, 1, tablet, By Mouth, 2 times a day, # 60 tablet, Refills 0, Tot. Refills 0, Maintenance, 11/25/21 17:44:00 EDT, Do Not Route, Partial fill upon patient request if the prescription is for a schedule II opioid drug. Start Date: 11/25/21 Status: Ordered Multivitamin By Mouth, Daily, 0 Refills, Maintenance, 12/19/13 10:45:45 Start Date: 12/19/13 Status: Ordered Seroquel 800 mg, By Mouth, Daily at bedtime, Refills 0, Maintenance, 05/01/18 10:26:02 EDT Start Date: 05/01/18 Status: Ordered Problem List Condition Confirmation Course Effective Dates Status H ealth Status Informant Alcoholism in recovery Confirmed Active Atrophic vaginitis Confirmed Active Basal cell cancer Confirmed Active Bicornuate uterus Confirmed Active Bipolar disorder Confirmed Active Cellulitis of left wrist Confirmed Active Depression, major, recurrent, moderate Confirmed Active Acid reflux Confirmed Active History of diverticulitis of colon Confirmed Active ASCUS with positive high risk HPV cervical Confirmed Active Mole of skin 1 Confirmed Active Urinary incontinence, mixed Confirmed Active Wrist pain, left Confirmed Active 1On right breast, 9:30 position Diagnosis Diagnosis Type Effective Dates Health Status Clinical Service Informant Seborrheic dermatitis Discharge Diagnosis 07/07/22 Non-Specified Social History Social History Type Response Smoking Status Former smoker; Tobac co user in household: No; Type: Cigarettes; Other: 30 years, half a pack to less, quit 9 years ago; entered on: 10/01/17 Sex Patient Care team information Care Team Personnel Name: Devin NAYAK, Theresa Velásquez Position: [facility] Primary Care Physician Member Role: PCP Address: Address: [address] [place] [address]- Name: Margie Fink NP Position: Reference Physician Member Role: Primary Care Nurse Address: Address: [address] [place] [address] [address] Clinical & [place] [address]- Care Team Related Persons Name: ECTOR MORFIN Name: CHLOE MORFIN Address: home [address] [place] [address]
--- OUTSIDE RECORDS SUMMARY | 2023-11-01 15:17 | XMS_ITS | Continuity of Care Document ---
Author Organization [facility] Address [address] [place] [address]- Care Team Providers Care Retort Furnace Helper Name Role Phone Devin NAYAK, Theresa Velásquez Primary Care Physic osei En[place] [facility] [place] Date(s): 10/16/22 - 11/17/22 [facility] [address] [place] [address]- Attending Physician: Nahomi ALEJANDRE, Laney Cohen Allergies, Adverse Reactions, Alerts Substance Reaction Severity Status penicillins Active Lovenox Active Effexor constipation Active Levaquin H/O: penicillin allergy Acti ve Bee Stings Active Other Environmental Allergy Active Immunizations Given and Recorded Vaccine Date [...] 02/26/19 Dharmesh rded influenza virus vaccine, inactivated 05/01/18 Gi dominik influenza virus vaccine, inactivated 5 05/23/17 Gi dominik influenza virus vaccine, inactivated 04/11/16 Give n influenza virus vaccine, inactivated 06/17/15 Give n influenza virus vaccine, inactivated 06/19/14 Give n tetanus/diphtheria/pertussis, acel(Tdap) 12/29/15 Given pneumococcal 23-valent vaccine 07/13/09 Given 1Result Comment: [facility]: [id number] Bivalent Booster 2Result Comment: [facility]: [id number] 3Result Comment: [facility]: 11713-172-27 4Result Comment: [05/01/2018] [facility]# [id number] 5Result Comment: [05/23/2017] [facility] [id number] Medications calcium carbonate 600 mg oral tablet 2 tablet = 1,200 mg, By Mouth, Daily, 0 Refills, Maintenance, 10/01/17 10:10:25 EDT Start Date: 10/01/17 Status: Ordered Claritin 10 mg oral tablet 10 mg, 1, tablet, By Mouth, Daily, # 90 tablet, Refills 1, Tot. Refills 1, Maintenance, 06/23/20 8:51:00 EST, Route to Pharmacy Electronically, [facility]/pharmacy #[id number], 167, cm, 05/05/20 10:33:00 EST, Height, 78.3, kg, 01/02/20 10:47:00 EDT, Dry Weight Start Date: 06/23/20 Status: Ordered cyclobenzaprine 10 mg oral tablet 10 mg, 1, tablet, By Mouth, 3 times a day, PRN, # 30 tablet, Refills 1, Tot. Refills 1, Maintenance, for spasm, 10/10/22 16:02:00 EDT, Route to Pharmacy Electronically, [facility]/pharmacy #[id number], Partial fill upon patient request if the prescription is for a... Start Date: 10/10/22 Status: Ordered Doculase 100 mg oral capsule 1 capsule = 100 mg, By Mouth, 2 times a day, PRN constipation, SOFT GELS. Take with water. Stop taking if loose stools/diarrhea., # 60 capsule, 1 Refills, Soft Stop, 09/28/20 8:49:00 EDT, Capsule, [facility]/pharmacy #[id number], 167, cm, 09/09/20 11:32:00 EST, He... Start Date: 07/28/09 Stop Date: 09/23/21 Status: Ordered docusate sodium 100 mg oral capsule 1 capsule = 100 mg, By Mouth, 2 times a day, PRN for constipation, SOFT GELS. Take with water. Stoptaking if loose stools/diarrhea., # 60 capsule, 5 Refills, Maintenance, 07/19/22 15:25:00 EST, Capsule, [facility]/pharmacy #[id number], Partial fill upon patient r... Start Date: 07/19/22 Status: Ordered fluticasone 50 mcg/inh nasal spray 2 sprays, Nares, Both, 2 times a day, # 16 Gm, 3 Refills, Maintenance, 10/20/22 9:23:00 EDT, [place],[facility]/pharmacy #[id number], Partial fill upon patient request if the prescription is for a schedule II opioid drug., 2 sprays Nares, Both 2 times a day, 168, c... Start Date: 10/20/22 Status: Ordered gabapentin 400 mg oral capsule 400 mg, 1, capsule, By Mouth, 3 times a day, Abida Salazar NP (prescriber), Refills 0, Maintenance,02/25/18 16:37:52 EDT Start Date: 02/25/18 Status: Ordered ibuprofen 600 mg oral tablet 600 mg, 1, tablet, By Mouth, 3 times a day, PRN, # 30 tablet, Refills 1, Tot. Refills 1, Maintenance, Pain , Moderate, 11/15/22 8:47:00 EDT, Route to Pharmacy Electronically, [facility]/pharmacy #[id number], Partial fill upon patient request if the prescription is... Start Date: 11/15/22 Status: Ordered lactulose 10 gm/15 ml oral syrup 15 mL, By Mouth, 2 times a day, PRN NEEDED FOR CONSTIPATION, # 900 mL, 0 Refills, [facility]ORE [id number], 30, TAKE 15 ML BY MOUTH 2 TIMES A DAY, NEEDED FOR CONSTIPATION, 167, cm, 07/14/21 8:11:00 EST,Height, 78.3, kg, 01/02/20 10:47:00 EDT, Dry Weight Start Date: 09/16/21 Status: Ordered loratadine 10 mg oral tablet 10 mg, 1, tablet, By Mouth, Daily, # 90 tablet, Refills 1, Tot. Refills 1, Maintenance, 10/20/22 9:15:00 EDT, Route to Pharmacy Electronically, [facility]/pharmacy #[id number], Partial fill upon patient request if the prescription is for a schedule II opioid drug.... Start Date: 10/20/22 Status: Ordered melatonin 5 mg oral tablet [...] 12/19/13 10:45:45 Start Date: 12/19/13 Status: Ordered Nicotine 7 mg/24 hour patch 1 patch, Topically, Daily, apply to skin and rotate site every 24 hours, # 30 patch, 1 Refills, Acute 12/29/22 23:00:00 EDT, 10/20/22 9:26:00 EDT, Patch, [facility]/pharmacy #[id number], Partial fill upon patientrequest if the prescription is for a schedule II op... Start Date: 10/20/22 Stop Date: 12/29/22 Status: Ordered omeprazole 20 mg oral enteric coated capsule 1 capsule = 20 mg, By Mouth, 2 times a day, # 180 capsule, 0 Refills, Soft Stop, 11/15/22 15:37:00 EDT, [facility]/pharmacy #[id number], 168, cm, 11/07/22 13:21:00 EDT, Height, 73.2, kg, 03/28/22 9:43:00 EDT, DryWeight Start Date: 11/15/22 Stop Date: 02/13/23 Status: Ordered Seroquel 800 mg, By Mouth, [...] Confirmed Active 1On right breast, 9:30 position Social History Social History Type Response Smoking Status Former smoker; Tobac co user in household: No; Type: Cigarettes; Other: 30 years, half a pack to less, quit 9 years ago; entered on: 10/01/17 Sex Patient Care team information Care Team Personnel Name: Devin NAYAK, Theresa Velásquez Position: [facility] Primary Care Physician Member Role: PCP Address: Address: [address] [place] [id number]- Name: Margie Fink NP Position: Reference Physician Member Role: Primary Care Nurse Address: Address: [address] [place] [address] [address] Clinical & [place] [address]- [place] Care Team Related Persons Name: ECTOR MORFIN Name: CHLOE MORFIN Address: home [address] [place] [id number]
--- OUTSIDE RECORDS SUMMARY | 2023-11-01 15:17 | XMS_ITS | Continuity of Care Document ---
Author Organization [facility] Address [address] [facility] [place] [address]- Care Team Providers Care Cleat Thrower Name Role Phone Devin NAYAK, Theresa Velásquez Primary Care Physic osei Encounter 04/06/22 - 04/13/22 [facility] [address] [facility], [address] [place] [address]- Attending Physician: Theresa Beltran MD Admitting Physician: Theresa Beltran MD Referring Physician: Theresa Beltran MD Allergies, Adverse Reactions, Alerts Substance Reaction Severity Status Other Environmental Allergy Active penicillins Active Lovenox Active Effexor constipation Active Levaquin H/O: penicillin allergy Acti ve Bee Stings Active Immunizations Given and Recorded Vaccine Date Status Refusal Reason SARS-CoV-2 (COVID-19) mRNA-1273 vaccine 11/29/21 R ecorded SARS-CoV-2 (COVID-19) mRNA-1273 vaccine 1 07/14/21 Given SARS-CoV-2 (COVID-19) mRNA-1273 vaccine 10/22/20 R ecorded SARS-CoV-2 (COVID-19) mRNA-1273 vaccine 09/24/20 R ecorded influenza virus vaccine, inactivated 04/08/20 Dharmesh rded influenza virus vaccine, inactivated 02/26/19 Dharmesh rded influenza virus vaccine, inactivated 2 05/01/18 Gi dominik influenza virus vaccine, inactivated 3 05/23/17 Gi dominik influenza virus vaccine, inactivated 04/11/16 Give n influenza virus vaccine, inactivated 06/17/15 Give n influenza virus vaccine, inactivated 06/19/14 Give n tetanus/diphtheria/pertussis, acel(Tdap) 12/29/15 Given pneumococcal 23-valent vaccine 1/12/10 Given 1Result Comment: [facility]: [address]-23 2Result Comment: [05/01/2018] [facility]# [id number] 3Result Comment: [05/23/2017] [facility] [id number] Medications aspirin 81 mg oral delayed release tablet 81 mg, 1, tablet, By Mouth, Daily, # 30 tablet, Refills 1, Tot. Refills 1, Maintenance, 12/02/21 15:56:00 EDT, Route to Pharmacy Electronically, [facility]/pharmacy #[id number], Partial fill upon patient request if the prescription is for a schedule II opioid drug... Start Date: 12/02/21 Stop Date: 01/31/22 Status: Ordered atorvastatin 40 mg oral tablet 1 tablet = 40 mg, By Mouth, Daily, # 90 tablet, 0 Refills, Maintenance, 11/25/21 17:35:00 EDT, Tablet, [facility]/pharmacy #[id number], Partial fill upon patient request if the prescription is for a schedule II opioid drug., 167, cm, 11/07/21 9:50:00 EDT, Height,... Start Date: 11/25/21 Status: Ordered Biotin By Mouth, Daily, 0 Refills, Maintenance, 01/01/20 15:41:00 EDT Start Date: 01/01/20 Status: Ordered calcium carbonate 600 mg oral tablet 2 tablet = 1,200 mg, By Mouth, Daily, 0 Refills, Maintenance, 10/01/17 10:10:25 EDT Start Date: 10/01/17 Status: Ordered Claritin 10 mg oral tablet 10 mg, 1, tablet, By Mouth, Daily, # 90 tablet, Refills 1, Tot. Refills 1, Maintenance, 06/23/20 8:51:00 EST, Route to Pharmacy Electronically, [facility]/pharmacy #[id number], 167, cm, 05/05/20 10:33:00 EST, Height, 78.3, kg, 01/02/20 10:47:00 EDT, Dry Weight Start Date: 06/23/20 Status: Ordered diclofenac sodium 75 mg oral delayed release tablet 1 tablet = 75 mg, By Mouth, Daily, # 30 tablet, 1 Refills, Maintenance, 05/23/21 17:56:00 EST, EC Tablet, [facility]/pharmacy #[id number], 167, cm, 03/17/21 8:09:00 EDT, Height, 78.3, kg, 01/02/20 10:47:00 EDT, Dry Weight Start Date: 05/23/21 Status: Ordered Doculase 100 mg oral capsule 1 capsule = 100 mg, By Mouth, 2 times a day, PRN constipation, SOFT GELS. Take with water. Stop taking if loose stools/diarrhea., # 60 capsule, 1 Refills, Soft Stop, 09/28/20 8:49:00 EDT, Capsule, [facility]/pharmacy #[id number], 167, cm, 09/09/20 11:32:00 EST, He... Start Date: 07/28/09 Stop Date: 09/23/21 Status: Ordered docusate sodium 100 mg oral capsule 1 capsule = 100 mg, By Mouth, 2 times a day, PRN for constipation, SOFT GELS. Take with water. Stoptaking if loose stools/diarrhea., # 60 capsule, 5 Refills, Maintenance, 12/07/21 10:34:00 EDT, Capsule, [facility]/pharmacy [id number], Partial fill upon patient r... Start Date: 12/07/21 Status: Ordered Eliquis 5 mg oral tablet 1 tablet = 5 mg, By Mouth, 2 times a day, # 60 tablet, 1 Refills, Maintenance, 11/29/21 11:57:00 EDT, Tablet, [id number], Partial fill upon patient request if the prescription is for a schedule II opioid drug., 167, cm, 11/07/21 9:50:00 EDT, H... Start Date: 11/29/21 Status: Ordered Flonase 50 mcg/inh nasal spray 2 sprays, Nares, Both, Daily, in each nostril, # 16 Gm, 5 Refills, Maintenance, 01/20/22 10:37:00 EDT, [id number], 2 sprays Nares, Both Daily,x30 days,Instr:in each nostril, 168, cm, 228:17:00 EDT, Height, 69.5, kg, 12/06/21 8:17:00 EDT... Start Date: 01/20/22 Stop Date: 07/19/22 Status: Ordered gabapentin 400 mg oral capsule 400 mg, 1, capsule, By Mouth, 3 times a day, Abida Salazar NP (prescriber), Refills 0, Maintenance,02/25/18 16:37:52 EDT Start Date: 02/25/18 Status: Ordered lactulose 10 gm/15 ml oral syrup 15 mL, By Mouth, 2 times a day, PRN NEEDED FOR CONSTIPATION, # 900 mL, 0 Refills, [id number], 30, TAKE 15 ML BY MOUTH 2 [...] 12/19/13 10:45:45 Start Date: 12/19/13 Status: Ordered omeprazole 20 mg oral enteric coated capsule 1 capsule = 20 mg, By Mouth, 2 times a day, # 180 capsule, 0 Refills, Soft Stop, 12/30/21 13:55:00 EDT, [facility]/pharmacy #[id number], 168, cm, 12/06/21 8:17:00 EDT, Height, 69.5, kg, 12/06/21 8:17:00 EDT, Dry Weight Start Date: 12/30/21 Stop Date: 03/30/22 Status: Ordered Seroquel 800 mg, By Mouth, Daily at bedtime, Refills 0, Maintenance, 05/01/18 10:26:02 EDT Start Date: 05/01/18 Status: Ordered simethicone 125 mg oral capsule 1 capsule = 125 mg, By Mouth, 3 times a day, # 42 capsule, 0 Refills, Maintenance, 03/21/21 13:47:00 EDT, Capsule, [facility]/pharmacy #[id number], Partial fill upon patient request if the prescription is for a schedule II opioid drug., 167, cm, 03/17/21 8:09:00 E... Start Date: 03/21/21 Status: Ordered Vitamin D3 = 1,000 International_Units, By Mouth, 0 Refills, Maintenance, 12/19/13 10:43:40 EDT Start Date: 12/19/13 Status: Ordered Problem List Condition Confirmation Course Effective Dates Status H ealth Status Informant Alcoholism in recovery Confirmed Active Atrophic vaginitis Confirmed Active Basal cell cancer Confirmed Active Bicornuate uterus Confirmed Active Bipolar disorder Confirmed Active Depression, major, recurrent, moderate Confirmed [...] on: 10/01/17 Sex Patient Care team information Personnel Name: Devin NAYAK, Theresa Velásquez Address: Address: [address] [place] [address]
--- OUTSIDE RECORDS SUMMARY | 2023-11-01 15:17 | XMS_ITS | Continuity of Care Document ---
Author Organization [facility] Address [address] [facility], [address] [place] [address]- Care Team Providers Care Supplier Development Manager Name Role Phone Devin NAYAK, Theresa Velásquez Primary Care Physic osei Encounter 02/09/22 - 04/09/22 [facility] [place] [address] [facility], [address] [place] [address]- Attending Physician: Theresa Beltran MD Admitting Physician: Theresa Beltran MD Referring Physician: Theresa Beltran MD Allergies, Adverse Reactions, Alerts Substance Reaction Severity Status Lovenox Active Effexor constipation Active Other Environmental Allergy Active penicillins Active Levaquin H/O: penicillin allergy Acti ve [...] 23-valent vaccine 1/12/10 Given 1Result Comment: [facility]: [id number] 2Result Comment: [05/01/2018] [facility]# [id number] 3Result Comment: [05/23/2017] [facility] 94658-445-99 Medications aspirin 81 mg oral delayed release tablet 81 mg, 1, tablet, By Mouth, Daily, # 30 tablet, Refills 1, Tot. Refills 1, Maintenance, 12/02/21 15:56:00 EDT, Route to Pharmacy Electronically, [facility]/pharmacy #[id number], Partial fill upon patient request if the prescription is for a schedule II opioid drug... Start Date: 12/02/21 Stop Date: 01/31/22 Status: Ordered atorvastatin 40 mg oral tablet 1 tablet = 40 mg, By Mouth, Daily, # 90 tablet, 0 Refills, Maintenance, 11/25/21 17:35:00 EDT, Tablet, [facility]/pharmacy #[id number], Partial fill upon patient request [...] 06/23/20 8:51:00 EST, Route to Pharmacy Electronically, [facility]/pharmacy #[id number], 167, cm, 05/05/20 10:33:00 EST, Height, 78.3, kg, 01/02/20 10:47:00 EDT, Dry Weight Start Date: 06/23/20 Status: Ordered diclofenac sodium 75 mg oral delayed release tablet 1 tablet = 75 mg, By Mouth, Daily, # 30 tablet, 1 Refills, Maintenance, 05/23/21 17:56:00 EST, EC Tablet, [facility]/pharmacy #[id number], 167, cm, 03/17/21 8:09:00 EDT, Height, 78.3, kg, 01/02/20 10:47:00 EDT, Dry Weight Start Date: 05/23/21 Status: Ordered Doculase 100 mg oral capsule 1 capsule = 100 mg, By Mouth, 2 times a day, PRN constipation, SOFT GELS. Take with water. Stop taking if loose stools/diarrhea., # 60 capsule, 1 Refills, Soft Stop, 09/28/20 8:49:00 EDT, Capsule, [facility]/pharmacy #[id number], 167, cm, 09/09/20 11:32:00 EST, [...] FOR CONSTIPATION, # 900 mL, 0 Refills, [facility] STORE [id number], 30, TAKE 15 ML BY MOUTH 2 [...] 0 Refills, Soft Stop, 12/30/21 13:55:00 EDT, [facility]/pharmacy #[id number], 168, cm, 12/06/21 8:17:00 EDT, Height, [...] 0 Refills, Maintenance, 03/21/21 13:47:00 EDT, Capsule, [facility]/pharmacy #[id number], Partial fill upon patient request if the [...] Name: Devin NAYAK, Theresa Velásquez Address: Address: [address] [place] [address]
--- OUTSIDE RECORDS SUMMARY | 2023-11-01 15:17 | XMS_ITS | Continuity of Care Document ---
Author Organization [facility] Address [address] [place] [address]- Care Team Providers Care Tap Builder Name Role Phone Devin NAYAK, Theresa Velásquez Primary Care Physic osei [facility]counter [facility] Date(s): 09/18[facility]23 - 10/18/23 [facility] [address] [place], [place] [address] Allergies, Adverse Reactions, Alerts Substance Reaction Severity Status penicillins ? reaction Active Effexor constipation Active Other Environmental Allergy pet hair, trees, grass, po llen Active Lovenox itching Active Levaquin H/O: penicillin allergy Acti ve Bee Stings swelling Active Immunizations Given and Recorded Vaccine Date Status Refusal Reason pneumococcal 20-valent conjugate vaccine 01/17/23 Given pneumococcal 20-valent conjugate vaccine 10/12/22 Recorded SARS-CoV-2 (COVID-19) mRNA-1273 vaccine 1 04/27/22 Given [...] pneumococcal 23-valent vaccine 07/13/09 Given 1Result Comment: [facility]: 52688-325-60 Bivalent Booster 2Result Comment: [facility]: [address]-90 3Result Comment: [facility]: 11979-828-75 4Result Comment: [05/01/2018] [facility]# 52485-036-53 5Result Comment: [05/23/2017] [facility] 61733-940-53 Medications calcium carbonate 600 mg oral tablet 2 tablet = 1,200 mg, By Mouth, Daily, 0 Refills, Maintenance, 10/01/17 10:10:25 EDT Start Date: 10/01/17 Status: Ordered cyclobenzaprine 10 mg oral tablet 10 mg, 1, tablet, By Mouth, 3 times a day, PRN, # 30 tablet, Refills 1, Tot. Refills 1, Maintenance, for spasm, 02/21/23 8:21:00 EDT, Route to Pharmacy Electronically, [facility]/pharmacy #[id number], Partial fill upon patient request if the prescription is for a... Start Date: 02/21/23 Status: Ordered Doculase 100 mg oral capsule 1 capsule = 100 mg, By Mouth, 2 times a day, PRN constipation, SOFT GELS. Take with water. Stop taking if loose stools/diarrhea., # 180 capsule, 1 Refills, Soft Stop, 09/18/23 11:23:00 EDT, Capsule, [facility]/pharmacy #[id number], 169, cm, 09/14/23 9:14:00 EDT, H... Start Date: 07/28/09 Status: Ordered EpiPen 2-Shade 0.3 mg injectable kit = 0.3 mg, Intramuscular, Once, # 1 pack/packet, 1 Refills, Soft Stop, 06/11/23 17:25:00 EST, [facility]/pharmacy #[id number], Partial fill upon patient request if the prescription is for a schedule II opioid drug., 168, cm, 01/17/23 10:21:00 EDT, Height, 73.2, kg,... Start Date: 06/11/23 Status: Ordered eszopiclone 3 mg oral tablet TAKE 1 TABLET BY MOUTH ONCE A DAY AT BEDTIME Start Date: 09/04/23 Status: Ordered Fish Oil 1000 mg oral capsule 1 capsule = 1,000 mg, By Mouth, Daily, 0 Refills, Maintenance, 09/12/23 11:01:00 EDT, Partial fill upon patient request if the prescription is for a schedule II opioid drug. Start Date: 09/12/23 Status: Ordered fluticasone 50 mcg/inh nasal spray 2 sprays, Nares, Both, Daily, # 16 Gm, 3 Refills, Maintenance, 07/20/23 15:17:00 EST, [place], [facility]/pharmacy #[id number], Partial fill upon patient request if the prescription is for a schedule II opioid drug., 2 sprays Nares, Both Daily, 168, cm, 01/17/23 10:... Start Date: 07/20/23 Status: Ordered gabapentin 400 mg oral capsule 400 mg, 1, capsule, By Mouth, Daily at bedtime, Abida Salazar NP (prescriber), Refills 0, Maintenance, 02/25/18 16:37:52 EDT Start Date: 02/25/18 Status: Ordered ibuprofen 600 mg oral tablet 600 mg, 1, tablet, By Mouth, 4 times a day, # 120 tablet, Refills 0, Tot. Refills 0, Maintenance, 09/18/23 11:24:00 EDT, Route to Pharmacy Electronically, [facility]/pharmacy #[id number], Partial fill upon patient request if the prescription is for a schedule II o... Start Date: 09/18/23 Status: Ordered lactulose 10 gm/15 ml oral syrup 15 mL, By Mouth, 2 times a day, PRN NEEDED FOR CONSTIPATION, # 900 mL, 0 Refills, [id number], 30, TAKE 15 ML BY MOUTH 2 TIMES A DAY, NEEDED FOR CONSTIPATION, 167, cm, 07/14/21 8:11:00 EST,Height, 78.3, kg, 01/02/20 10:47:00 EDT, Dry Weight Start Date: 09/16/21 Status: Ordered loratadine 10 mg oral tablet 1, tablet, By Mouth, Daily, # 90 tablet, Refills 1, Tot. Refills 1, Maintenance, 04/17/23 21:12:00 EDT, Route to Pharmacy Electronically, [facility]/pharmacy #[id number], 168, cm, 01/17/23 10:21:00 EDT, Height, 73.2, kg, 03/28/22 9:43:00 EDT, Dry Weight Start Date: 04/17/23 Status: Ordered Misc Rx Refills 0, Maintenance, Hair, skin , nails 1 tab daily, 09/12/23 11:02:00 EDT, Supply Start Date: 09/12/23 Status: Ordered Multivitamin By Mouth, Daily, 0 Refills, Maintenance, 12/19/13 10:45:45 Start Date: 12/19/13 Status: Ordered Seroquel 800 mg, By Mouth, Daily at bedtime, Refills 0, Maintenance, 05/01/18 10:26:02 EDT Start Date: 05/01/18 Status: Ordered simethicone 125 mg oral capsule 1 capsule = 125 mg, By Mouth, 3 times a day, # 42 capsule, 0 Refills, Maintenance, 01/26/23 17:56:00 EDT, Capsule, [facility]/pharmacy #[id number], Partial fill upon patient request if the prescription is for a schedule II opioid drug., 168, cm, 01/17/23 10:21:00... Start Date: 01/26/23 Status: Ordered Vitamin E 1 tablet, By Mouth, Daily, 0 Refills, Maintenance, 09/12/23 11:00:00 EDT, Partial fill upon patientrequest if the prescription is for a schedule II opioid drug. Start Date: 09/12/23 Status: Ordered Problem List Condition Confirmation Course Effective Dates Status H ealth Status Informant Alcoholism in recovery Confirmed Active Atrophic vaginitis Confirmed Active Basal cell cancer Confirmed Active Bicornuate uterus Confirmed Active Bipolar disorder Confirmed Active Chronic constipation Confirmed Active Chronic insomnia Confirmed Active Depression, major, recurrent, moderate Confirmed Active Acid reflux Confirmed Active History of diverticulitis of colon Confirmed Active ASCUS with positive high risk HPV cervical Confirmed Active Mole of skin 1 Confirmed Active Mixed hyperlipidemia Confirmed Active Urinary incontinence, mixed Confirmed Active Wrist pain, left Confirmed Active Knee pain, right Confirmed Active 1On right breast, 9:30 position Social History Social History Type Response Smoking Status Former smoker; Tobac co user in household: No; Type: Cigarettes; Other: 30 years, half a pack to less, quit 9 years ago; entered on: 10/01/17 Sex Patient Care team information Care Team Personnel Name: Devin NAYAK, Theresa Velásquez Position: S Physician - Primary Care Member Role: PCP Address: Address: [address] [place] [id number]- Name: Margie Fink NP Position: Reference Physician Member Role: Primary Care Nurse Address: Address: [address] [place] [address] [address] Clinical & [place] [address]- Care Team Related Persons Name: ECTOR MORFIN Name: CHLOE MORIFN Address: home [address] [place] [address]
--- OUTSIDE RECORDS SUMMARY | 2023-11-01 15:17 | XMS_ITS | Continuity of Care Document ---
Author Organization [facility] Address [address] [facility] [place] [address]- Care Team Providers Care Cupola Liner Helper Name Role Phone Devin NAYAK, Theresa Velásquez Primary Care Physic osei Encounter 04/07/22 - 05/18/22 [facility] [address] [facility], [address] [place] [address]- Attending Physician: Theresa Beltran MD Admitting Physician: Theresa Beltran MD Referring Physician: Theresa Beltran MD Allergies, Adverse Reactions, Alerts Substance Reaction Severity Status penicillins Active Lovenox Active Effexor constipation Active Bee Stings Active Other Environmental Allergy Active Levaquin H/O: penicillin allergy Acti ve Immunizations Given and Recorded Vaccine Date Status [...] pneumococcal 23-valent vaccine 07/13/09 Given 1Result Comment: [facility]: 73631-565-24 Bivalent Booster 2Result Comment: [facility]: [address]-71 3Result Comment: [facility]: 06815-949-80 4Result Comment: [05/01/2018] [facility]# 54860-920-65 5Result Comment: [05/23/2017] [facility] 70030-095-73 Medications aspirin 81 mg oral delayed release tablet 81 mg, 1, tablet, By Mouth, Daily, # 30 tablet, Refills 1, Tot. Refills 1, Maintenance, 12/02/21 15:56:00 EDT, Route to Pharmacy Electronically, [facility]/pharmacy #[id number], Partial fill upon patient request if the prescription is for a schedule II opioid drug... Start Date: 12/02/21 Stop Date: 01/31/22 Status: Ordered atorvastatin 40 mg oral tablet 1 tablet = 40 mg, By Mouth, Daily, # 90 tablet, 0 Refills, Maintenance, 11/25/21 17:35:00 EDT, Tablet, [facility]/pharmacy #[id number], Partial fill upon patient [...] 10:10:25 EDT Start Date: 10/01/17 Status: Ordered cephalexin monohydrate 500 mg oral capsule TAKE 1 CAPSULE BY MOUTH FOUR TIMES A DAY Start Date: 04/27/22 Status: Ordered Claritin 10 mg oral tablet 10 mg, 1, tablet, By Mouth, Daily, # 90 tablet, Refills 1, Tot. Refills 1, Maintenance, 06/23/20 8:51:00 EST, Route to Pharmacy Electronically, [facility]/pharmacy #[id number], 167, cm, 05/05/20 10:33:00 EST, Height, 78.3, kg, 01/02/20 10:47:00 EDT, Dry Weight Start Date: 06/23/20 Status: Ordered diclofenac sodium 75 mg oral delayed release tablet 1 tablet = 75 mg, By Mouth, Daily, # 30 tablet, 1 Refills, Maintenance, 05/23/21 17:56:00 EST, EC Tablet, [id number], 167, cm, 03/17/21 8:09:00 EDT, Height, 78.3, kg, 01/02/20 10:47:00 EDT, Dry Weight Start Date: 05/23/21 Status: Ordered Doculase 100 mg oral capsule 1 capsule = 100 mg, By Mouth, 2 times a day, PRN constipation, SOFT GELS. Take with water. Stop taking if loose stools/diarrhea., # 60 capsule, 1 Refills, Soft Stop, 09/28/20 8:49:00 EDT, Capsule, [id number], 167, cm, 09/09/20 11:32:00 EST, He... [...] FOR CONSTIPATION, # 900 mL, 0 Refills, [facility] [id number], 30, TAKE 15 ML BY MOUTH 2 [...] # 180 capsule, 0 Refills, Soft Stop, 04/21/22 10:42:00 EDT, [facility]/pharmacy #[id number], 168, cm, 04/17/22 13:06:00 EDT, Height, 73.2, kg, 03/28/22 9:43:00 EDT, DryWeight Start Date: 04/21/22 Stop Date: 07/20/22 Status: Ordered Seroquel 800 mg, By Mouth, Daily at bedtime, Refills 0, Maintenance, 05/01/18 10:26:02 EDT Start Date: 05/01/18 Status: Ordered simethicone 125 mg oral capsule 1 capsule = 125 mg, By Mouth, 3 times a day, # 42 capsule, 0 Refills, Maintenance, 03/21/21 13:47:00 EDT, Capsule, [id number], Partial fill upon patient request [...] Name: Devin NAYAK, Theresa Velásquez Position: S Primary Care Physician Member Role: PCP Address: Address: [address] [place] [address]- Name: Margie Fink NP Position: Reference Physician Member Role: Primary Care Nurse Address: Address: [address] [place] [address] [address] Clinical & [place] [address]- Care Team Related Persons Name: ECTOR MORFIN Name: CHLOE MORFIN Address: home [address] [place] [address]
--- OUTSIDE RECORDS SUMMARY | 2023-11-01 15:17 | XMS_ITS | Continuity of Care Document ---
Author Organization [facility] Address [address] [facility], [address] [place] [address]- Care Team Providers Care Facility Examiner Name Role Phone Devin NAYAK, Theresa Velásquez Primary Care Physic osei Encounter 03/09/21 - 03/16/21 [facility] [address] [facility], [address] [place] [address]- Attending Physician: Theresa Beltran MD Admitting Physician: Theresa Beltran MD Referring Physician: Theresa Beltran MD Allergies, Adverse Reactions, Alerts Substance Reaction Severity Status levofloxacin pruritus Active penicillins Active Effexor constipation Active Levaquin H/O: penicillin allergy Acti ve Other Environmental Allergy Active Immunizations Given and Recorded Vaccine Date Status Refusal Reason influenza virus vaccine, inactivated 1 05/01/18 Gi dominik influenza virus vaccine, inactivated 2 05/23/17 Gi dominik influenza virus vaccine, inactivated 04/11/16 Give n influenza virus vaccine, inactivated 06/17/15 Give n influenza virus vaccine, inactivated 06/19/14 Give n tetanus/diphtheria/pertussis, acel(Tdap) 12/29/15 Given pneumococcal 23-valent vaccine 07/13/09 Given 1Result Comment: [05/01/2018] [facility]# 61620-558-37 2Result Comment: [05/23/2017] [facility] 60641-693-29 Medications Biotin By Mouth, Daily, 0 Refills, Maintenance, 01/01/20 15:41:00 EDT Start Date: 01/01/20 Status: Ordered calcium carbonate 600 mg oral tablet 2 tablet = 1,200 mg, By Mouth, Daily, 0 Refills, Maintenance, 10/01/17 10:10:25 EDT Start Date: 10/01/17 Status: Ordered Claritin 10 mg oral tablet 10 mg, 1, tablet, By Mouth, Daily, # 30 tablet, Refills 5, Tot. Refills 5, Maintenance, 02/06/19 14:33:11 EDT, Route to Pharmacy Electronically, [id number], [facility]/pharmacy #[id number] Start Date: 02/06/19 Status: Ordered Claritin 10 mg oral tablet 10 mg, 1, tablet, By Mouth, Daily, # 90 tablet, Refills 1, Tot. Refills 1, Maintenance, 06/23/20 8:51:00 EST, Route to Pharmacy Electronically, [facility]/pharmacy #[id number], 167, cm, 05/05/20 10:33:00 EST, Height, 78.3, kg, 01/02/20 10:47:00 EDT, Dry Weight Start Date: 06/23/20 Status: Ordered diclofenac sodium 75 mg oral delayed release tablet 1 tablet = 75 mg, By Mouth, Daily, # 30 tablet, 1 Refills, Maintenance, 04/23/20 13:21:00 EDT, EC Tablet, [facility]/pharmacy #[id number], 167, cm, 01/02/20 10:47:00 EDT, Height, 78.3, kg, 01/02/20 10:47:00 EDT, Dry Weight Start Date: 04/23/20 Status: Ordered Doculase 100 mg oral capsule 1 capsule = 100 mg, By Mouth, 2 times a day, PRN constipation, SOFT GELS. Take with water. Stop taking if loose stools/diarrhea., # 60 capsule, 1 Refills, Soft Stop, 09/28/20 8:49:00 EDT, Capsule, [facility]/pharmacy #[id number], 167, cm, 09/09/20 11:32:00 EST, He... Start Date: 07/28/09 Stop Date: 09/23/21 Status: Ordered docusate sodium 100 mg oral capsule 1 capsule = 100 mg, By Mouth, 2 times a day, PRN for constipation, SOFT GELS. Take with water. Stoptaking if loose stools/diarrhea., # 60 capsule, 5 Refills, Maintenance, 12/21/20 10:19:00 EDT, Capsule, [facility]/pharmacy #[id number], Partial fill upon patient r... Start Date: 12/21/20 Status: Ordered Fish Oil By Mouth, 0 Refills, Maintenance, 01/01/20 15:41:00 EDT Start Date: 01/01/20 Status: Ordered Flonase 50 mcg/inh nasal spray 2 sprays, Nares, Both, Daily, in each nostril, # 16 Gm, 5 Refills, Maintenance, 10/28/20 12:19:00 EDT, [facility]/pharmacy #[id number], 2 sprays Nares, Both Daily,x30 days,Instr:in each nostril, 167, cm, 09/09/2110:32:00 EST, Height, 78.3, kg, 01/02/20 10:47:00 E... Start Date: 10/28/20 Stop Date: 04/26/21 Status: Ordered gabapentin 400 mg oral capsule 400 mg, 1, capsule, By Mouth, 3 times a day, Abida Salazar NP (prescriber), Refills 0, Maintenance,02/25/18 16:37:52 EDT Start Date: 02/25/18 Status: Ordered lactulose 10 gm/15 ml oral syrup See Instructions, # 946 mL, Refills 1 Tot. Refills 1, TAKE 15 ML BY MOUTH 2 TIMES A DAY, [facility]/pharmacy #[id number] Start Date: 05/01/19 Status: Ordered melatonin 5 mg oral tablet 1 tablet = 5 mg, By Mouth, Daily at bedtime, PRN for insomnia, OTC, 0 Refills, Maintenance, 02/25/18 16:35:44 EDT, Tablet Start Date: 02/25/18 Status: Ordered Multivitamin By Mouth, Daily, 0 Refills, Maintenance, 12/19/13 10:45:45 Start Date: 12/19/13 Status: Ordered omeprazole 20 mg oral enteric coated capsule 1 capsule = 20 mg, By Mouth, 2 times a day, # 180 capsule, 0 Refills, Soft Stop, 03/11/21 18:08:00 EDT, [facility]/pharmacy #[id number], 167, cm, 09/09/20 11:32:00 EST, Height, 78.3, kg, 01/02/20 10:47:00 EDT, Dry Weight Start Date: 03/11/21 Stop Date: 06/09/21 Status: Ordered Seroquel 800 mg, By Mouth, Daily at bedtime, Refills 0, Maintenance, 05/01/18 10:26:02 EDT Start Date: 05/01/18 Status: Ordered Vitamin D3 = 1,000 International_Units, By Mouth, 0 Refills, Maintenance, 12/19/13 10:43:40 EDT Start Date: 12/19/13 Status: Ordered Problem List Condition Effective Dates Status Health Status Inform ant Alcoholism in recovery(Confirmed) Active Atrophic vaginitis(Confirmed) Active Basal cell cancer(Confirmed) Active Bicornuate uterus(Confirmed) Active Bipolar disorder(Confirmed) Active Depression, major, recurrent , moderate(Confirmed) Active Acid reflux(Confirmed) Active History of diverticulitis of colon(Confirmed) Active ASCUS with positive high ris k HPV cervical(Confirmed) Active Mole of skin(Confirmed) 1 Active Urinary incontinence, mixed(Confirmed) Active Wrist pain, left(Confirmed) Active 1On right breast, 9:30 position Social History Social History Type Response Smoking Status Former smoker; Tobac co user in household: No; Type: Cigarettes; Other: 30 years, half a pack to less, quit 9 years ago; entered on: 10/01/17 Sex
--- OUTSIDE RECORDS SUMMARY | 2023-11-01 15:17 | XMS_ITS | Continuity of Care Document ---
Author Organization [facility] Address [address] [place] [address]- Care Team Providers Care Casing Cooker Name Role Phone Devin NAYAK, Theresa Velásquez Primary Care Physic osei [facility] Date[facility]): 07/09[facility]23 - 08/08/23 [facility] [address] [place], [place] [address] Allergies, Adverse Reactions, Alerts Substance Reaction Severity [...] 23-valent vaccine 07/13/09 Given 1Result Comment: [facility]: [id number] Bivalent Booster 2Result Comment: [facility]: [id number] 3Result Comment: [facility]: [id number] 4Result Comment: [05/01/2018] [facility]# [id number] 5Result Comment: [05/23/2017] [facility] [id number] Medications calcium carbonate 600 mg oral tablet 2 tablet = 1,200 mg, By Mouth, Daily, 0 Refills, Maintenance, 10/01/17 10:10:25 EDT Start Date: 10/01/17 Status: Ordered cyclobenzaprine 10 mg oral tablet 10 mg, 1, tablet, By Mouth, 3 times a day, PRN, # 30 tablet, Refills 1, Tot. Refills 1, Maintenance, for spasm, 02/21/23 8:21:00 EDT, Route to Pharmacy Electronically, [facility]/pharmacy #[id number], Partial fill upon patient request if the prescription is for a... Start Date: 02/21/23 Status: Ordered Doculase 100 mg oral capsule 1 capsule = 100 mg, By Mouth, 2 times a day, PRN constipation, SOFT GELS. Take with water. Stop taking if loose stools/diarrhea., # 60 capsule, 1 Refills, Soft Stop, 09/28/20 8:49:00 EDT, Capsule, [facility]/pharmacy #[id number], 167, cm, 09/09/20 11:32:00 EST, He... Start Date: 07/28/09 Stop Date: 09/23/21 Status: Ordered docusate sodium 100 mg oral capsule 1 capsule = 100 mg, By Mouth, 2 times a day, PRN for constipation, SOFT GELS. Take with water. Stoptaking if loose stools/diarrhea., # 60 capsule, 5 Refills, Maintenance, 03/06/23 11:48:00 EDT, Capsule, [facility]/pharmacy #[id number], Partial fill upon patient r... Start Date: 03/06/23 Status: Ordered EpiPen 2-Shade 0.3 mg injectable kit = 0.3 mg, Intramuscular, Once, # 1 pack/packet, 1 Refills, Soft Stop, 06/11/23 17:25:00 EST, [facility]/pharmacy #[id number], Partial fill upon patient request if the prescription is for a schedule II opioid drug., 168, cm, 01/17/23 10:21:00 EDT, Height, 73.2, kg,... Start Date: 06/11/23 Status: Ordered fluticasone 50 mcg/inh nasal spray 2 sprays, Nares, Both, Daily, # 16 Gm, 3 Refills, Maintenance, 07/20/23 15:17:00 EST, [place], [facility]/pharmacy #[id number], Partial fill upon patient request [...] 11/15/22 8:47:00 EDT, Route to Pharmacy Electronically, [facility]/pharmacy #[id number], Partial fill upon patient request if the prescription is... Start Date: 11/15/22 Status: Ordered ibuprofen 600 mg oral tablet 600 mg, 1, tablet, By Mouth, 3 times a day, PRN, # 30 tablet, Refills 1, Tot. Refills 1, Maintenance, Pain , Moderate, 02/21/23 8:21:00 EDT, Route to Pharmacy Electronically, [facility]/pharmacy #[id number], Partial fill upon patient request if the prescription is... Start Date: 02/21/23 Status: Ordered lactulose 10 gm/15 ml oral syrup 15 mL, By Mouth, 2 times a day, PRN NEEDED FOR CONSTIPATION, # 900 mL, 0 Refills, [facility], 30, TAKE 15 ML BY MOUTH 2 TIMES A DAY, NEEDED FOR CONSTIPATION, 167, cm, 07/14/21 8:11:00 EST,Height, 78.3, kg, 01/02/20 10:47:00 EDT, Dry Weight Start Date: 09/16/21 Status: Ordered loratadine 10 mg oral tablet 1, tablet, By Mouth, Daily, # 90 tablet, Refills 1, Tot. Refills 1, Maintenance, 04/17/23 21:12:00 EDT, Route to Pharmacy Electronically, [facility]/pharmacy #[id number], 168, cm, 01/17/23 10:21:00 EDT, Height, 73.2, kg, 03/28/22 9:43:00 EDT, Dry Weight Start Date: 04/17/23 Status: Ordered melatonin 5 mg oral tablet [...] mg, By Mouth, 2 times a day, for 90 days, # 180 capsule, 0 Refills, Hard Stop 09/27/23 13:02:00 EDT, 06/29/23 13:02:00 EST, [facility]/pharmacy #[id number], 168, cm, 01/17/23 10:21:00 EDT, Height, 73.2, kg, 03/28/22 9:43:00 EDT, Dry Weight Start Date: 06/29/23 Stop Date: 09/27/23 Status: Ordered omeprazole 20 mg oral enteric coated capsule 1 capsule = 20 mg, By Mouth, 2 times a day, # 180 capsule, 0 Refills, Soft Stop, 09/27/23 13:02:00 EDT, [facility]/pharmacy #[id number], 168, cm, 01/17/23 10:21:00 EDT, Height, 73.2, kg, 03/28/22 9:43:00 EDT, DryWeight Start Date: 09/27/23 Stop Date: 12/26/23 Status: Ordered Seroquel 800 mg, By Mouth, Daily at bedtime, Refills 0, Maintenance, 05/01/18 10:26:02 EDT Start Date: 05/01/18 Status: Ordered simethicone 125 mg oral capsule 1 capsule = 125 mg, By Mouth, 3 times a day, # 42 capsule, 0 Refills, Maintenance, 01/26/23 17:56:00 EDT, Capsule, [id number], Partial fill upon patient request if the prescription is for a schedule II opioid drug., 168, cm, 01/17/23 10:21:00... Start Date: 01/26/23 Status: Ordered Problem List Condition Confirmation Course Effective Dates Status H ealth Status Informant Alcoholism in recovery Confirmed Active Atrophic vaginitis Confirmed Active Basal cell cancer Confirmed Active Bicornuate uterus Confirmed Active Bipolar disorder Confirmed Active Cellulitis of left wrist Confirmed Active Chronic constipation Confirmed Active Chronic [...] Primary Care Member Role: PCP Address: Address: [address] [place] [id number]- Name: Margie Fink NP Position: Reference Physician Member Role: Primary Care Nurse Address: Address: [address] [place] [address] [address] Clinical & [place] [address]- Care Team Related Persons Name: ECTOR MORFIN Name: CHLOE MORFIN Address: home [address] [place] [address]
--- OUTSIDE RECORDS SUMMARY | 2023-11-01 15:17 | XMS_ITS | Continuity of Care Document ---
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 Name Role Phone Devin NAYAK, Theresa Velásquez Primary Care Physic osei Encounter [facility] Date(s): 01/17/23 - 01/24/23 [facility] [address] [place] [address]- Encounter Diagnosis Bipolar disorder(Discharge Diagnosis) - 01/17/23 Chronic insomnia(Discharge Diagnosis) - 01/17/23 Chronic constipation(Discharge Diagnosis) - 01/17/23 Alcoholism in recovery(Discharge Diagnosis) - 01/17/23 Attending Physician: Theresa Beltran MD Allergies, Adverse Reactions, Alerts Substance Reaction Severity Status Other Environmental Allergy Active penicillins Active Lovenox Active Effexor constipation Active Levaquin H/O: penicillin allergy Acti ve Bee Stings Active Immunizations Given and Recorded Vaccine Date Status Refusal Reason pneumococcal 20-valent conjugate vaccine 01/17/23 Given SARS-CoV-2 (COVID-19) mRNA-1273 vaccine 1 04/27/22 Given [...] Given 1Result Comment: [facility]: 18169-957-53 Bivalent Booster 2Result Comment: [facility]: [address]-08 3Result Comment: [facility]: 48096-866-01 4Result Comment: [05/01/2018] [facility]# 36464-970-90 5Result Comment: [05/23/2017] [facility] 32650-967-72 Medications calcium carbonate 600 mg oral tablet 2 tablet = 1,200 mg, By Mouth, Daily, 0 Refills, Maintenance, 10/01/17 10:10:25 EDT Start Date: 10/01/17 Status: Ordered Claritin 10 mg oral tablet 10 mg, 1, tablet, By Mouth, Daily, # 90 tablet, Refills 1, Tot. Refills 1, Maintenance, 06/23/20 8:51:00 EST, Route to Pharmacy Electronically, [facility]/pharmacy #[id number], 167, cm, 05/05/20 10:33:00 EST, Height, 78.3, kg, 01/02/20 10:47:00 EDT, Dry Weight Start Date: 06/23/20 Status: Ordered Doculase 100 mg oral capsule 1 capsule = 100 mg, By Mouth, 2 times a day, PRN constipation, SOFT GELS. Take with water. Stop taking if loose stools/diarrhea., # 60 capsule, 1 Refills, Soft Stop, 09/28/20 8:49:00 EDT, Capsule, [facility]/pharmacy #[id number], 167, cm, 09/09/20 11:32:00 EST, He... Start Date: 07/28/09 Stop Date: 09/23/21 Status: Ordered docusate sodium 100 mg oral capsule 1 capsule = 100 mg, By Mouth, 2 times a day, PRN for constipation, SOFT GELS. Take with water. Stoptaking if loose stools/diarrhea., # 60 capsule, 5 Refills, Maintenance, 07/19/22 15:25:00 EST, Capsule, [facility]/pharmacy #[id number], Partial fill upon patient r... Start Date: 07/19/22 Status: Ordered fluticasone 50 mcg/inh nasal spray 2 sprays, Nares, Both, 2 times a day, # 16 Gm, 3 Refills, Maintenance, 10/20/22 9:23:00 EDT, [place],[facility]/pharmacy #[id number], Partial fill upon patient request [...] 11/15/22 8:47:00 EDT, Route to Pharmacy Electronically, [facility]/pharmacy #[id number], Partial fill upon patient request if the prescription is... Start Date: 11/15/22 Status: Ordered lactulose 10 gm/15 ml oral syrup 15 mL, By Mouth, 2 times a day, PRN NEEDED FOR CONSTIPATION, # 900 mL, 0 Refills, [facility] STORE 27366, 30, TAKE 15 ML BY MOUTH 2 TIMES A DAY, NEEDED FOR CONSTIPATION, 167, cm, 07/14/21 8:11:00 EST,Height, 78.3, kg, 01/02/20 10:47:00 EDT, Dry Weight Start Date: 09/16/21 Status: Ordered loratadine 10 mg oral tablet 10 mg, 1, tablet, By Mouth, Daily, # 90 tablet, Refills 1, Tot. Refills 1, Maintenance, 10/20/22 9:15:00 EDT, Route to Pharmacy Electronically, [facility]/pharmacy #[id number], Partial fill upon patient request [...] Condition Confirmation Course Effective Dates Status H ealt Status Informant Alcoholism in recovery Confirmed Active [...] Effective Dates Health Status Clinical Service Informant Bipolar disorder Discharge Diagnosis 01/17/23 Chronic insomnia Discharge Diagnosis 01/17/23 Chronic constipation Discharge Diagnosis 01/17/23 Alcoholism in recovery Discharge Diagnosis 01/17/23 Vital Signs Most recent to oldest [Reference Range]: 1 2 Height 168 cm (01/17/23 10:21 AM) 168 cm (01/17/23 10:11 AM) Weight 69.2 kg (01/17/23 10:11 AM) Oxygen Saturation [94-100 %] 98 % (01/17/23 10:11 AM) Pulse Rate [55-90 bpm] 80 bpm (01/17/23 10:11 AM) Body Mass Index [18.5-24.99 kg/m2] 24.52 kg/m2 (01/17/23 10:11 AM) Blood Pressure [90-138/55-84 mm Hg] 130/ 81mm Hg (01/17/23 10:21 AM) 140/93mm Hg *H* (01/17/23 10:11 AM) Mode of Delivery (Oxygen) Room air (01/17/23 10:11 AM) Blood pressure sites Arm, left (01/17/23 10:21 AM) Arm, left (01/17/23 10:11 AM) Weight Obtained Via Standing scale (01/17/23 10:11 AM) Social History Social History Type Response Smoking Status Former smoker; Tobac co user in household: No; Type: Cigarettes; Other: 30 years, half a pack to less, quit 9 years ago; entered on: 10/01/17 Sex Note * Padmini Villegas: PERFORM, SIGN, VERIFY Event Display: Patient Education/Instruction Authored Date: [id number] [facility] Clinical Summary Name KYLIE MORFIN Age 67 Years 1955 PCP Devin NAYAK, Theresa Velásquez PCP Visit Date 01/17/2023 09:49:00 Additional Instructions: Scheduled Appointments?? Future Appointments ?No Future Appointments Scheduled Follow-Up Instructions ?? Diagnosis Bipolar disorder, unspecified; Insomnia, unspecified; Psychophysiologic insomnia; Alcohol dependence, uncomplicated; Other constipation; Alcohol dependence, in remission Medications: Please continue your medications until treatment is completed or stopped by your provider. Discuss any questions related to medications with your provider. Medications to Continue with No Changes These medications were not printed or sent to your pharmacy Calcium Carbonate (calcium carbonate 600 mg oral tablet) 2 tab(s) Oral Daily. Next Dose: Docusate (Doculase 100 mg oral capsule) 1 capsule Oral twice a day as needed constipation. SOFT GELS. Take with water. Stop taking if loose stools/diarrhea.. Refills: 1. Next Dose: Docusate (docusate sodium 100 mg oral capsule) 1 capsule Oral twice a day as needed for constipation. SOFT GELS. Take with water. Stop taking if loose stools/diarrhea.. Refills: 5. Next Dose: Fluticasone Nasal (fluticasone 50 mcg/inh nasal spray) 2 spray(s) Nares, Both twice a day. Refills:3. Next Dose: Gabapentin (gabapentin 400 mg oral capsule) 1 capsule Oral 3 times a day. Abida Salazar NP (prescriber). Next Dose: Ibuprofen (ibuprofen 600 mg oral tablet) 1 tab(s) Oral 3 times a day as needed Pain , Moderate. Refills: 1. Next Dose: Lactulose (lactulose 10 gm/15 ml oral syrup) 15 Milliliter Oral twice a day as needed NEEDED FORCONSTIPATION. Refills: 0. Next Dose: Loratadine (Claritin 10 mg oral tablet) 1 tab(s) Oral Daily. Refills: 1. Next Dose: Loratadine (loratadine 10 mg oral tablet) 1 tab(s) Oral Daily. Refills: 1. Next Dose: Melatonin (melatonin 5 mg oral tablet) 1 tab(s) Oral Daily at Bedtime as needed for insomnia. OTC. Next Dose: Multivitamin Oral Daily. Next Dose: Omeprazole (omeprazole 20 mg oral enteric coated capsule) 1 capsule Oral twice a day for 90 Days. Refills: 0. Next Dose: Quetiapine (Seroquel) 800 Milligram Oral Daily at Bedtime. Next Dose: No Longer Take the Following Medications Cyclobenzaprine (cyclobenzaprine 10 mg oral tablet) 1 tab(s) Oral 3 times a day as needed for spasm. Refills: 1. Metoprolol (metoprolol 50 mg oral tablet) 1 tab(s) Oral twice a day. Refills: 0. Allergy Info:?? Other Environmental Allergy; Bee Stings; Levaquin; Effexor; Lovenox; penicillins Medications Given This Visit Medication Dose Route pneumococcal 20-valent conjugate vaccine (pneumococcal 20-valent vacc) 0.5 mL Intramuscular Future Orders ?No future orders Vital Signs Height 168 cm Weight 69.2 kg BMI 24.52 kg/m2 Blood Pressure 130 mm Hg/81 mm Hg Temperature Pulse Rate 80 bpm Respiratory Rate 02 Sat Mode of Delivery 98 %/Room air You can now view a summary of your hospital visit from the comfort of your home through a free online portal called [facility]. [facility] [facility] is a website that allows you to securely view your medical information including discharge summary, medications and follow-up visits. ??You can alsosend a secure electronic message to your doctor???s office to request appointments, renew medications or just ask a question. You can enroll at [email or web address] or register during your next office visit. Disclaimer:?? The information provided is of a general nature and is intended to be used in conjunction with the recommendations and advice of your health care practitioner. ??Every effort has been made to ensure that the information provided is accurate and complete at the time it is provided to you however, as your needs change, or, as new ??information becomes available, different or additional instructions may be required. If you have questions, please consult with your primary care provider or pharmacist, as appropriate. ??This information is not intended to serve as substitution for assessment and evaluation by a qualified health care provider. If you do not have a primary care provider, you may find a [facility] provider by calling [facility] [employer] at [phone]. For information about the plan of care including goals and instructions for your diagnosis, please see the patient education orders section of this document. Patient Education Materials?? The content of this educational material or handout may have been modified, supplemented, or adapted from its original content and format to support your individualized medical care. Patient Care team information Care Team Personnel Name: Devin NAYAK, Theresa Velásquez Position: S Physician - Primary Care Member Role: PCP Address: Address: [address] [place] [id number]- Name: Margie Fink NP Position: Reference Physician Member Role: Primary Care Nurse Address: Address: [address] [place] [address] [address] Clinical & [place] [address]- Care Team Related Persons Name: ECTOR MORFIN Name: CHLOE MORFIN Address: [address] [address]
--- OUTSIDE RECORDS SUMMARY | 2023-11-01 15:17 | XMS_ITS | Continuity of Care Document ---
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 Name Role Phone Devin NAYAK, Theresa Velásquez Primary Care Physic osei [facility]counter [facility] Date(s): 09/03/20 - 10/03/20 [facility] [address] [place], [place] [address] Allergies, Adverse Reactions, Alerts Substance Reaction Severity Status Other Environmental Allergy Active levofloxacin pruritus Active penicillins Active Effexor constipation [...] 23-valent vaccine 07/13/09 Given 1Result Comment: [05/01/2018] [facility]# 78570-472-80 2Result Comment: [05/23/2017] [facility] 11982-781-35 Medications Biotin By Mouth, Daily, 0 Refills, [...] 02/06/19 14:33:11 EDT, Route to Pharmacy Electronically, [id number], [facility]/pharmacy #[id number] Start Date: 02/06/19 Status: Ordered Claritin 10 mg oral tablet 10 mg, 1, tablet, By Mouth, Daily, # 90 tablet, Refills 1, Tot. Refills 1, Maintenance, 06/23/20 8:51:00 EST, Route to Pharmacy Electronically, [facility]/pharmacy #[id number], 167, cm, 05/05/20 10:33:00 EST, Height, 78.3, kg, 01/02/20 10:47:00 EDT, Dry Weight Start Date: 06/23/20 Status: Ordered diclofenac sodium 75 mg oral delayed release tablet 1 tablet = 75 mg, By Mouth, Daily, # 30 tablet, 1 Refills, Maintenance, 04/23/20 13:21:00 EDT, EC Tablet, [facility]/pharmacy #[id number], 167, cm, 01/02/20 10:47:00 EDT, Height, 78.3, kg, 01/02/20 10:47:00 EDT, Dry Weight Start Date: 04/23/20 Status: Ordered Doculase 100 mg oral capsule 1 capsule = 100 mg, By Mouth, 2 times a day, PRN constipation, SOFT GELS. Take with water. Stop taking if loose stools/diarrhea., # 60 capsule, 1 Refills, Soft Stop, 09/28/20 8:49:00 EDT, Capsule, [facility]/pharmacy #[id number], 167, cm, 09/09/20 11:32:00 EST, He... Start Date: 07/28/09 Stop Date: 09/23/21 Status: Ordered docusate sodium 100 mg oral capsule 1 capsule = 100 mg, By Mouth, 2 times a day, PRN for constipation, SOFT GELS. Take with water. Stoptaking if loose stools/diarrhea., # 60 capsule, 1 Refills, Maintenance, 09/28/20 11:55:00 EDT, Capsule, [facility]/pharmacy #[id number], Partial fill upon patient r... Start Date: 09/28/20 Status: Ordered Fish Oil By Mouth, 0 Refills, Maintenance, 01/01/20 15:41:00 EDT Start Date: 01/01/20 Status: Ordered Flonase 50 mcg/inh nasal spray 2 sprays, Nares, Both, Daily, in each nostril, # 16 Gm, 5 Refills, Maintenance, 06/12/19 12:16:33 EST, 2 sprays Nares, Both Daily,x30 days,Instr:in each nostril, 167, cm, 02/20/19 13:00:32 EDT, Height, 72.7, kg, 02/20/19 13:00:32 EDT, Dry Weight Start Date: 06/12/19 Stop Date: 12/09/19 Status: Ordered gabapentin 400 mg oral capsule 400 mg, 1, capsule, By Mouth, 3 times a day, Abida Salazar NP (prescriber), Refills 0, Maintenance,02/25/18 16:37:52 EDT Start Date: 02/25/18 Status: Ordered lactulose 10 gm/15 ml oral syrup See Instructions, # 946 mL, Refills 1 Tot. Refills 1, TAKE 15 ML BY MOUTH 2 TIMES A DAY, [facility]/pharmacy #[id number] Start Date: 05/01/19 Status: Ordered melatonin [...] # 180 capsule, 0 Refills, Soft Stop, 07/22/20 10:09:00 EST, [facility]/pharmacy #[id number], 167, cm, 05/05/20 10:33:00 EST, Height, 78.3, kg, 01/02/20 10:47:00 EDT, Dry Weight Start Date: 07/22/20 Stop Date: 10/20/20 Status: Ordered Seroquel 800 mg, By Mouth, [...]
--- OUTSIDE RECORDS SUMMARY | 2023-11-01 15:17 | XMS_ITS | Continuity of Care Document ---
Author Organization [facility] Address [address] [place] [address]- Care Team Providers Care Manufacturing Intern Name Role Phone Devin NAYAK, Theresa Velásquez Primary Care Physic osei Encounter [facility] Date(s): 10/20/22 - 11/19/22 [facility] [address] [place] [address]- Attending Physician: Admtr, Ar8 Admitting Physician: Admtr, Ar8 Referring Physician: Admtr, Ar8 Allergies, Adverse Reactions, Alerts Substance Reaction Severity [...] pneumococcal 23-valent vaccine 07/13/09 Given 1Result Comment: [facility]: 33116-292-48 Bivalent Booster 2Result Comment: [facility]: [address]-33 3Result Comment: [facility]: [id number] 4Result Comment: [05/01/2018] [facility]# 15938-865-47 5Result Comment: [05/23/2017] [facility] 29254-839-55 Medications calcium carbonate 600 mg oral tablet 2 tablet = 1,200 mg, By Mouth, Daily, 0 Refills, Maintenance, 10/01/17 10:10:25 EDT Start Date: 10/01/17 Status: Ordered Claritin 10 mg oral tablet 10 mg, 1, tablet, By Mouth, Daily, # 90 tablet, Refills 1, Tot. Refills 1, Maintenance, 06/23/20 8:51:00 EST, Route to Pharmacy Electronically, [facility]/pharmacy #[id number], 167, cm, 05/05/20 10:33:00 EST, Height, 78.3, kg, 01/02/20 10:47:00 EDT, Dry Weight Start Date: 06/23/20 Status: Ordered cyclobenzaprine 10 mg oral tablet 10 mg, 1, tablet, By Mouth, 3 times a day, PRN, # 30 tablet, Refills 1, Tot. Refills 1, Maintenance, for spasm, 10/10/22 16:02:00 EDT, Route to Pharmacy Electronically, [facility]/pharmacy #[id number], Partial fill upon patient request if the prescription is for a... Start Date: 10/10/22 Status: Ordered Doculase 100 mg oral capsule 1 capsule = 100 mg, By Mouth, 2 times a day, PRN constipation, SOFT GELS. Take with water. Stop taking if loose stools/diarrhea., # 60 capsule, 1 Refills, Soft Stop, 09/28/20 8:49:00 EDT, Capsule, [facility]/pharmacy #[id number], 167, cm, 09/09/20 11:32:00 EST, He... Start Date: 07/28/09 Stop Date: 09/23/21 Status: Ordered docusate sodium 100 mg oral capsule 1 capsule = 100 mg, By Mouth, 2 times a day, PRN for constipation, SOFT GELS. Take with water. Stoptaking if loose stools/diarrhea., # 60 capsule, 5 Refills, Maintenance, 07/19/22 15:25:00 EST, Capsule, [facility]/pharmacy #[id number], Partial fill upon patient r... Start Date: 07/19/22 Status: Ordered fluticasone 50 mcg/inh nasal spray 2 sprays, Nares, Both, 2 times a day, # 16 Gm, 3 Refills, Maintenance, 10/20/22 9:23:00 EDT, [place],[facility]/pharmacy #[id number], Partial fill upon patient [...] 11/15/22 8:47:00 EDT, Route to Pharmacy Electronically, [facility]/pharmacy #[id number], Partial fill upon patient request if the prescription is... Start Date: 11/15/22 Status: Ordered lactulose 10 gm/15 ml oral syrup 15 mL, By Mouth, 2 times a day, PRN NEEDED FOR CONSTIPATION, # 900 mL, 0 Refills, [facility] STORE 78358, 30, TAKE 15 ML BY MOUTH 2 TIMES A DAY, NEEDED FOR CONSTIPATION, 167, cm, 07/14/21 8:11:00 EST,Height, 78.3, kg, 01/02/20 10:47:00 EDT, Dry Weight Start Date: 09/16/21 Status: Ordered loratadine 10 mg oral tablet 10 mg, 1, tablet, By Mouth, Daily, # 90 tablet, Refills 1, Tot. Refills 1, Maintenance, 10/20/22 9:15:00 EDT, Route to Pharmacy Electronically, [facility]/pharmacy #[id number], Partial fill upon patient [...] 12/29/22 23:00:00 EDT, 10/20/22 9:26:00 EDT, Patch, [facility]/pharmacy #[id number], Partial fill upon patientrequest if the [...] 9 years ago; entered on: 10/01/17 Sex Laboratory * Event Display: Non BH Lab Results Authored Date: * Event Display: Laboratory Result Scanned Authored Date: * Event Display: Laboratory Result Scanned Authored Date: Note * Event Display: Cardiology Office Note, Non-BH Authored Date: MG Breast Views * Event Display: MM Mammogram Authored Date: Radiology * Event Display: IR Special Procedures Authored Date: * Event Display: Radiology Result Scanned Authored Date: * Theresa Nelson MD October Christen: REVIEW Event Display: Radiology Result Scanned Authored Date: * Theresa Nelson MD: REVIEW Event Display: Radiology Result Scanned Authored Date: Patient Care team information Care Team Personnel Name: Theresa Beltran MD Position: [facility] Primary Care Physician Member Role: PCP Address: Address: [address] [place] [id number]- [place] Name: Margie Fink NP Position: Reference Physician Member Role: Primary Care Nurse Address: Address: [address] [place] [address] [address] Clinical & [place] [address]- [place] Care Team Related Persons Name: ECTOR MORFIN Name: CHLOE MORFIN Address: home [address] [place] [address]
--- OUTSIDE RECORDS SUMMARY | 2023-11-01 15:17 | XMS_ITS | Continuity of Care Document ---
Author Organization [facility] Address [address] [place] [address]- Care Team Providers Care Hogshead Liner Name Role Phone Devin NAYAK, Theresa Velásquez Primary Care Physic osei [facility]counter [facility] Date[facility]s): 11/25/21 - 12/25/21 [facility] [address] [place], [place] [address] Allergies, Adverse Reactions, Alerts Substance Reaction Severity Status penicillins Active Lovenox Active Effexor constipation Active Levaquin H/O: penicillin allergy Acti ve Bee Stings Active Other Environmental Allergy Active Immunizations Given and Recorded Vaccine Date Status Refusal Reason SARS-CoV-2 (COVID-19) mRNA-1273 vaccine 1 07/14/21 Given SARS-CoV-2 (COVID-19) mRNA-1273 vaccine 10/22/20 R ecorded SARS-CoV-2 (COVID-19) mRNA-1273 vaccine 09/24/20 R ecorded influenza virus vaccine, inactivated 2 05/01/18 Gi dominik influenza virus vaccine, inactivated 3 05/23/17 Gi dominik influenza virus vaccine, inactivated 04/11/16 Give n influenza virus vaccine, inactivated 06/17/15 Give n influenza virus vaccine, inactivated 06/19/14 Give n tetanus/diphtheria/pertussis, acel(Tdap) 12/29/15 Given pneumococcal 23-valent vaccine 07/13/09 Given 1Result Comment: [facility]: [id number] 2Result Comment: [05/01/2018] [facility]# [id number] 3Result Comment: [05/23/2017] [facility] 46351-515-85 Medications aspirin 81 mg oral delayed release tablet 81 mg, 1, tablet, By Mouth, Daily, # 30 tablet, Refills 1, Tot. Refills 1, Maintenance, 12/02/21 15:56:00 EDT, Route to Pharmacy Electronically, [facility]/pharmacy #[id number], Partial fill upon patient request if the prescription is for a schedule II opioid drug... Start Date: 12/02/21 Stop Date: 01/31/22 Status: Ordered atorvastatin 40 mg oral tablet 1 tablet = 40 mg, By Mouth, Daily, # 90 tablet, 0 Refills, Maintenance, 11/25/21 17:35:00 EDT, Tablet, [facility]/pharmacy #[id number], Partial fill upon patient request if [...] 06/23/20 8:51:00 EST, Route to Pharmacy Electronically, [facility]/pharmacy #[id number], 167, cm, 05/05/20 10:33:00 EST, Height, 78.3, kg, 01/02/20 10:47:00 EDT, Dry Weight Start Date: 06/23/20 Status: Ordered diclofenac sodium 75 mg oral delayed release tablet 1 tablet = 75 mg, By Mouth, Daily, # 30 tablet, 1 Refills, Maintenance, 05/23/21 17:56:00 EST, EC Tablet, [facility]/pharmacy #[id number], 167, cm, 03/17/21 8:09:00 EDT, Height, 78.3, kg, 01/02/20 10:47:00 EDT, Dry Weight Start Date: 05/23/21 Status: Ordered Doculase 100 mg oral capsule 1 capsule = 100 mg, By Mouth, 2 times a day, PRN constipation, SOFT GELS. Take with water. Stop taking if loose stools/diarrhea., # 60 capsule, 1 Refills, Soft Stop, 09/28/20 8:49:00 EDT, Capsule, [facility]/pharmacy #1893, 167, cm, 09/09/20 11:32:00 EST, He... Start Date: 07/28/09 Stop Date: 09/23/21 Status: Ordered docusate sodium 100 mg oral capsule 1 capsule = 100 mg, By Mouth, 2 times a day, PRN for constipation, SOFT GELS. Take with water. Stoptaking if loose stools/diarrhea., # 60 capsule, 5 Refills, Maintenance, 12/07/21 10:34:00 EDT, Capsule, [facility]/pharmacy #1893, Partial fill upon patient r... Start Date: 12/07/21 Status: Ordered Eliquis 5 mg oral tablet 1 tablet = 5 mg, By Mouth, 2 times a day, # 60 tablet, 1 Refills, Maintenance, 11/29/21 11:57:00 EDT, Tablet, [facility]/pharmacy #1893, Partial fill upon patient request if the prescription is for a schedule II opioid drug., 167, cm, 11/07/21 9:50:00 EDT, H... Start Date: 11/29/21 Status: Ordered Flonase 50 mcg/inh nasal spray 2 sprays, Nares, Both, Daily, in each nostril, # 16 Gm, 5 Refills, Maintenance, 10/28/20 12:19:00 EDT, [facility]/pharmacy #1893, 2 sprays Nares, Both [...] FOR CONSTIPATION, # 900 mL, 0 Refills, [facility] STORE [id number], 30, TAKE 15 ML BY MOUTH 2 [...] # 180 capsule, 0 Refills, Soft Stop, 07/21/21 8:42:00 EST, [facility]/pharmacy #1893, 167, cm, 07/14/21 8:11:00 EST, Height, 78.3, kg, 01/02/20 10:47:00 EDT, Dry Weight Start Date: 07/21/21 Stop Date: 10/19/21 Status: Ordered Seroquel 800 mg, By Mouth, Daily at bedtime, Refills 0, Maintenance, 05/01/18 10:26:02 EDT Start Date: 05/01/18 Status: Ordered simethicone 125 mg oral capsule 1 capsule = 125 mg, By Mouth, 3 times a day, # 42 capsule, 0 Refills, Maintenance, 03/21/21 13:47:00 EDT, Capsule, [facility]/pharmacy #1893, Partial fill upon patient request if [...]
--- OUTSIDE RECORDS SUMMARY | 2023-11-01 15:17 | XMS_ITS | Continuity of Care Document ---
Author Organization [facility] Address [address] [place] [address]- Care Team Providers Care Hand Scraper Name Role Phone Devin NAYAK, Theresa Velásquez Primary Care Physic osei [facility] 08[facility] - 09/17/22 [facility] [address] [place] [address]- Allergies, Adverse Reactions, Alerts Substance Reaction Severity [...] 05/01/18 Gi dominik influenza virus vaccine, inactivated 05/23/17 Gi dominik influenza virus vaccine, inactivated 04/11/16 Give n influenza virus vaccine, inactivated 06/17/15 Give n influenza virus vaccine, inactivated 06/19/14 Give n tetanus/diphtheria/pertussis, acel(Tdap) 12/29/15 Given pneumococcal 23-valent vaccine 07/13/09 Given 1Result Comment: [facility]: [id number] Bivalent Booster 2Result Comment: [facility]: [id number] 3Result Comment: [facility]: [id number] 4Result Comment: [05/01/2018] [facility]# [id number] 5Result Comment: [05/23/2017] [facility] [id number] Medications calcium carbonate 600 mg oral tablet 2 tablet = 1,200 mg, By Mouth, Daily, 0 Refills, Maintenance, 10/01/17 10:10:25 EDT Start Date: 10/01/17 Status: Ordered Claritin 10 mg oral tablet 10 mg, 1, tablet, By Mouth, Daily, # 90 tablet, Refills 1, Tot. Refills 1, Maintenance, 06/23/20 8:51:00 EST, Route to Pharmacy Electronically, [facility]/pharmacy #[id number], 167, cm, 05/05/20 10:33:00 EST, Height, 78.3, kg, 01/02/20 10:47:00 EDT, Dry Weight Start Date: 06/23/20 Status: Ordered cyclobenzaprine 10 mg oral tablet 10 mg, 1, tablet, By Mouth, 3 times a day, PRN, # 30 tablet, Refills 1, Tot. Refills 1, Maintenance, for spasm, 09/15/22 19:54:00 EDT, Route to Pharmacy Electronically, [facility]/pharmacy #[id number], Partial fill upon patient request if the prescription is for a... Start Date: 09/15/22 Status: Ordered Doculase 100 mg oral capsule 1 capsule = 100 mg, By Mouth, 2 times a day, PRN constipation, SOFT GELS. Take with water. Stop taking if loose stools/diarrhea., # 60 capsule, 1 Refills, Soft Stop, 09/28/20 8:49:00 EDT, Capsule, [facility]/pharmacy #[id number], 167, cm, 09/09/20 11:32:00 EST, He... Start Date: 07/28/09 Stop Date: 09/23/21 Status: Ordered docusate sodium 100 mg oral capsule 1 capsule = 100 mg, By Mouth, 2 times a day, PRN for constipation, SOFT GELS. Take with water. Stoptaking if loose stools/diarrhea., # 60 capsule, 5 Refills, Maintenance, 07/19/22 15:25:00 EST, Capsule, [facility]/pharmacy #[id number], Partial fill upon patient r... Start Date: 07/19/22 Status: Ordered Flonase 50 mcg/inh nasal spray 2 sprays, Nares, Both, Daily, in each nostril, # 16 Gm, 5 Refills, Maintenance, 01/20/22 10:37:00 EDT, [facility]/pharmacy #[id number], 2 sprays Nares, Both Daily,x30 days,Instr:in [...] Tot. Refills 1, Maintenance, Pain , Moderate, 08/21/22 18:00:00 EST, Route to Pharmacy Electronically, [facility]/pharmacy #[id number], Partial fill upon patient request if the prescription i... Start Date: 08/21/22 Status: Ordered lactulose 10 gm/15 ml oral syrup 15 mL, By Mouth, 2 times a day, PRN NEEDED FOR CONSTIPATION, # 900 mL, 0 Refills, [facility] STORE [id number], 30, TAKE 15 ML BY MOUTH 2 [...] # 180 capsule, 0 Refills, Soft Stop, 08/11/22 19:18:00 EST, [id number], 168, cm, 08/04/22 11:16:00 EST, Height, 73.2, kg, 03/28/22 9:43:00 EDT, DryWeight Start Date: 08/11/22 Stop Date: 11/09/22 Status: Ordered Seroquel 800 mg, By Mouth, [...] Care Physician Member Role: PCP Address: Address: [address] [place] [id number] Name: Margie Fink NP Position: Reference Physician Member Role: Primary Care Nurse Address: Address: [address] [place] [address] [address] Clinical & [place] [address]- Care Team Related Persons Name: ECTOR MORFIN Name: CHLOE MORFIN Address: [address] [address]
--- OUTSIDE RECORDS SUMMARY | 2023-11-01 15:17 | XMS_ITS | Continuity of Care Document ---
Author Organization [facility] Address [address], [address] [place] [address]- Care Team Providers Care Security Incident Response Engineer Name Role Phone Devin NAYAK, Theresa Velásquez Primary Care Physic osei Encounter 02/17/21 - 03/25/21 [facility] [address], [address] [place] [address]- Attending Physician: Theresa Beltran MD Admitting Physician: Theresa Beltran MD Referring Physician: Theresa Beltran MD Allergies, Adverse Reactions, Alerts Substance Reaction Severity Status levofloxacin pruritus Active penicillins Active Effexor constipation Active Levaquin H/O: penicillin allergy Acti ve Other Environmental Allergy Active Immunizations Given and Recorded Vaccine Date Status Refusal Reason SARS-CoV-2 (COVID-19) mRNA-1273 vaccine 10/22/20 R ecorded SARS-CoV-2 (COVID-19) mRNA-1273 vaccine 09/24/20 R ecorded influenza virus vaccine, inactivated 1 05/01/18 Gi dominik influenza virus vaccine, inactivated 2 05/23/17 Gi dominik influenza virus vaccine, inactivated 04/11/16 Give n influenza virus vaccine, inactivated 06/17/15 Give n influenza virus vaccine, inactivated 06/19/14 Give n tetanus/diphtheria/pertussis, acel(Tdap) 12/29/15 Given pneumococcal 23-valent vaccine 07/13/09 Given 1Result Comment: [05/01/2018] [facility]# [id number] 2Result Comment: [05/23/2017] [facility] [id number] Medications Biotin By Mouth, Daily, 0 Refills, [...] 02/06/19 14:33:11 EDT, Route to Pharmacy Electronically, [id number], [facility]/pharmacy #[id number] Start Date: 02/06/19 Status: Ordered Claritin 10 mg oral tablet 10 mg, 1, tablet, By Mouth, Daily, # 90 tablet, Refills 1, Tot. Refills 1, Maintenance, 06/23/20 8:51:00 EST, Route to Pharmacy Electronically, [facility]/pharmacy #[id number], 167, cm, 05/05/20 10:33:00 EST, Height, 78.3, kg, 01/02/20 10:47:00 EDT, Dry Weight Start Date: 06/23/20 Status: Ordered diclofenac sodium 75 mg oral delayed release tablet 1 tablet = 75 mg, By Mouth, Daily, # 30 tablet, 1 Refills, Maintenance, 04/23/20 13:21:00 EDT, EC Tablet, [facility]/pharmacy #[id number], 167, cm, 01/02/20 10:47:00 EDT, Height, 78.3, kg, 01/02/20 10:47:00 EDT, Dry Weight Start Date: 04/23/20 Status: Ordered Doculase 100 mg oral capsule 1 capsule = 100 mg, By Mouth, 2 times a day, PRN constipation, SOFT GELS. Take with water. Stop taking if loose stools/diarrhea., # 60 capsule, 1 Refills, Soft Stop, 09/28/20 8:49:00 EDT, Capsule, [facility]/pharmacy #[id number], 167, cm, 09/09/20 11:32:00 EST, He... Start Date: 07/28/09 Stop Date: 09/23/21 Status: Ordered docusate sodium 100 mg oral capsule 1 capsule = 100 mg, By Mouth, 2 times a day, PRN for constipation, SOFT GELS. Take with water. Stoptaking if loose stools/diarrhea., # 60 capsule, 5 Refills, Maintenance, 12/21/20 10:19:00 EDT, Capsule, [facility]/pharmacy #[id number], Partial fill upon patient r... Start Date: 12/21/20 Status: Ordered Fish Oil By Mouth, 0 Refills, Maintenance, 01/01/20 15:41:00 EDT Start Date: 01/01/20 Status: Ordered Flonase 50 mcg/inh nasal spray 2 sprays, Nares, Both, Daily, in each nostril, # 16 Gm, 5 Refills, Maintenance, 10/28/20 12:19:00 EDT, [facility]/pharmacy #[id number], 2 sprays Nares, Both Daily,x30 [...] ML BY MOUTH 2 TIMES A DAY, [facility]/pharmacy #[id number] Start Date: 05/01/19 Status: Ordered [...] 0 Refills, Soft Stop, 03/11/21 18:08:00 EDT, [facility]/pharmacy #[id number], 167, cm, 09/09/20 11:32:00 EST, Height, 78.3, kg, 01/02/20 10:47:00 EDT, Dry Weight Start Date: 03/11/21 Stop Date: 06/09/21 Status: Ordered predniSONE 10 mg oral tablet 1 tablet = 10 mg, By Mouth, Daily, 3 tab x 3 days then 2 tabs x 3 days then 1 tab x 3 days, # 18 tablet, 0 Refills, Maintenance, 03/17/21 8:18:00 EDT, [facility]/pharmacy #[id number], Partial fill upon patient request if the prescription is for a schedule II opioi... Start Date: 03/17/21 Stop Date: 03/26/21 Status: Ordered Seroquel 800 mg, By Mouth, Daily at bedtime, Refills 0, Maintenance, 05/01/18 10:26:02 EDT Start Date: 05/01/18 Status: Ordered simethicone 125 mg oral capsule 1 capsule = 125 mg, By Mouth, 3 times a day, # 42 capsule, 0 Refills, Maintenance, 03/21/21 13:47:00 EDT, Capsule, [facility]/pharmacy #[id number], Partial fill upon patient [...]
--- OUTSIDE RECORDS SUMMARY | 2023-11-01 15:17 | XMS_ITS | Continuity of Care Document ---
Author Organization [facility] Address [address] [place] [address]- Care Team Providers Care Cleaning Manager Name Role Phone Devin NAYAK, Theresa Velásquez Primary Care Physic osei [facility] Date[facility]): 08/[facility]23 - 09/26/23 [facility] [address] [place], [place] [address] Allergies, Adverse Reactions, Alerts Substance Reaction Severity Status penicillins ? reaction Active Levaquin H/O: penicillin allergy Acti ve Bee Stings swelling Active Other Environmental Allergy pet hair, trees, grass, po llen Active Lovenox itching Active Effexor constipation Active Immunizations Given and Recorded Vaccine Date [...] Comment: [facility]: 23294-871-32 Bivalent Booster 2Result Comment: [facility]: [address]-42 3Result Comment: [facility]: [id number] 4Result Comment: [05/01/2018] [facility]# [id number] 5Result Comment: [05/23/2017] [facility] 58607-249-67 Medications calcium carbonate 600 mg oral tablet 2 tablet = 1,200 mg, By Mouth, Daily, 0 Refills, Maintenance, 10/01/17 10:10:25 EDT Start Date: 10/01/17 Status: Ordered cyclobenzaprine 10 mg oral tablet 10 mg, 1, tablet, By Mouth, 3 times a day, PRN, # 30 tablet, Refills 1, Tot. Refills 1, Maintenance, for spasm, 02/21/23 8:21:00 EDT, Route to Pharmacy Electronically, [facility]/pharmacy #[id number], Partial fill upon patient request if the prescription is for a... Start Date: 02/21/23 Status: Ordered Doculase 100 mg oral capsule 1 capsule = 100 mg, By Mouth, 2 times a day, PRN constipation, SOFT GELS. Take with water. Stop taking if loose stools/diarrhea., # 180 capsule, 1 Refills, Soft Stop, 09/18/23 11:23:00 EDT, Capsule, [facility]/pharmacy #[id number], 169, cm, 09/14/23 9:14:00 EDT, H... Start Date: 07/28/09 Status: Ordered EpiPen 2-Shade 0.3 mg injectable kit = 0.3 mg, Intramuscular, Once, # 1 pack/packet, 1 Refills, Soft Stop, 06/11/23 17:25:00 EST, [facility]/pharmacy #[id number], Partial fill upon patient request if [...] Gm, 3 Refills, Maintenance, 07/20/23 15:17:00 EST, [place], [facility]/pharmacy #1893, Partial fill upon patient request if [...] 09/18/23 11:24:00 EDT, Route to Pharmacy Electronically, [facility]/pharmacy #[id number], Partial fill upon patient request if the prescription is for a schedule II o... Start Date: 09/18/23 Status: Ordered lactulose 10 gm/15 ml oral syrup 15 mL, By Mouth, 2 times a day, PRN NEEDED FOR CONSTIPATION, # 900 mL, 0 Refills, [facility] 112[facility], 30, TAKE 15 ML BY MOUTH 2 TIMES A DAY, NEEDED FOR CONSTIPATION, 167, cm, 07/14/21 8:11:00 EST,Height, 78.3, kg, 01/02/20 10:47:00 EDT, Dry Weight Start Date: 09/16/21 Status: Ordered loratadine 10 mg oral tablet 1, tablet, By Mouth, Daily, # 90 tablet, Refills 1, Tot. Refills 1, Maintenance, 04/17/23 21:12:00 EDT, Route to Pharmacy Electronically, [facility]/pharmacy #[id number], 168, cm, 01/17/23 10:21:00 EDT, Height, [...] Stop 09/27/23 13:02:00 EDT, 06/29/23 13:02:00 EST, [facility]/pharmacy #1893, 168, cm, 01/17/23 10:21:00 EDT, Height, 73.2, kg, 03/28/22 9:43:00 EDT, Dry Weight Start Date: 06/29/23 Stop Date: 09/27/23 Status: Ordered Seroquel 800 mg, By Mouth, Daily at bedtime, Refills 0, Maintenance, 05/01/18 10:26:02 EDT Start Date: 05/01/18 Status: Ordered simethicone 125 mg oral capsule 1 capsule = 125 mg, By Mouth, 3 times a day, # 42 capsule, 0 Refills, Maintenance, 01/26/23 17:56:00 EDT, Capsule, [facility]/pharmacy #[id number], Partial fill upon patient request if [...] Personnel Name: Devin NAYAK, Theresa Velásquez Position: [facility] Physician - Primary Care Member Role: PCP Address: Address: [address] [place] [address]- Name: Margie Fink NP Position: Reference Physician Member Role: Primary Care Nurse Address: Address: [address] [place] [address] [address] Clinical & [place] [address]- Care Team Related Persons Name: ECTOR MORFIN Name: CHLOE MORFIN Address: home [address] [place] [address]
--- OUTSIDE RECORDS SUMMARY | 2023-11-01 15:17 | XMS_ITS | Continuity of Care Document ---
Author Organization [facility] Address [address] [place] [address]- Care Team Providers Care Trim Setter Name Role Phone Devin NAYAK, Theresa Velásquez Primary Care Physic osei [facility] Date[facility]): 01/01/20 - 01/08/20 [facility] [address] [place] [address]- [facility] Attending Physician: Theresa Beltran MD Allergies, Adverse [...] 23-valent vaccine 07/13/09 Given 1Result Comment: [05/01/2018] [facility]# [id number] 2Result Comment: [05/23/2017] [facility] 29037-353-98 Medications Biotin By Mouth, Daily, 0 Refills, [...] 02/06/19 14:33:11 EDT, Route to Pharmacy Electronically, [id number], [facility]/pharmacy #[id number] Start Date: 02/06/19 Status: Ordered Claritin 10 mg oral tablet 10 mg, 1, tablet, By Mouth, Daily, # 30 tablet, Refills 5, Tot. Refills 5, Maintenance, 10/02/19 11:18:00 EDT, Route to Pharmacy Electronically, [facility]/pharmacy #[id number], 167, cm, 02/20/19 13:00:00 EDT, Height, 72.7, kg, 02/20/19 13:00:00 EDT, Dry Weight Start Date: 10/02/19 Status: Ordered diclofenac sodium 75 mg oral delayed release tablet 1 tablet = 75 mg, By Mouth, Daily, # 30 tablet, 0 Refills, Maintenance, 08/03/19 9:32:00 EST, EC Tablet, [facility]/pharmacy #[id number], 167, cm, 02/20/19 13:00:00 EDT, Height, 72.7, kg, 02/20/19 13:00:00 EDT, Dry Weight Start Date: 08/03/19 Status: Ordered Diflucan 150 mg oral tablet 1 tablet = 150 mg, By Mouth, Once, # 1 tablet, 0 Refills, Soft Stop, 01/08/20 14:33:00 EDT, Tablet,[facility]/pharmacy #1893, 167, cm, 01/02/20 10:47:00 EDT, Height, 78.3, kg, 01/02/20 10:47:00 EDT, Dry Weight Start Date: 01/08/20 Status: Ordered Doculase 100 mg oral capsule 1 capsule = 100 mg, By Mouth, 2 times a day, PRN constipation, SOFT GELS. Take with water. Stop taking if loose stools/diarrhea., # 60 capsule, 11 Refills, Soft Stop, 08/19/19 9:43:00 EST, Capsule, [facility]/pharmacy #1893, 167, cm, 02/20/19 13:00:00 EDT, H... Start Date: 07/28/09 Stop Date: 08/13/20 Status: Ordered Fish Oil By Mouth, 0 [...] 16:37:52 EDT Start Date: 02/25/18 Status: Ordered hydrALAZINE 0 Refills, Maintenance, 01/02/20 10:53:00 EDT Start Date: 01/02/20 Status: Ordered HydrOXYzine 0 Refills, Maintenance, 01/01/20 15:41:00 EDT Start Date: 01/01/20 Status: Ordered lactulose 10 gm/15 ml oral syrup See Instructions, # 946 mL, Refills 1 Tot. Refills 1, TAKE 15 ML BY MOUTH 2 TIMES A DAY, [id number] Start Date: 05/01/19 Status: Ordered melatonin 5 mg oral tablet 1 tablet = 5 mg, By Mouth, Daily at bedtime, PRN for insomnia, OTC, 0 Refills, Maintenance, 02/25/18 16:35:44 EDT, Tablet Start Date: 02/25/18 Status: Ordered Multivitamin By Mouth, Daily, 0 Refills, Maintenance, 12/19/13 10:45:45 Start Date: 12/19/13 Status: Ordered omeprazole 20 mg oral enteric coated capsule See Instructions, TAKE ONE CAPSULE BY MOUTH TWICE A DAY, # 180 capsule, 0 Refills, Soft Stop, 12/03/19 12:28:00 EDT, [id number], 167, cm, 02/20/19 13:00:00 EDT, Height, 72.7, kg, 02/20/19 13:00:00 EDT, Dry Weight Start Date: 12/03/19 Status: Ordered Seroquel 800 mg, By Mouth, Daily at bedtime, Refills 0, Maintenance, 05/01/18 10:26:02 EDT Start Date: 05/01/18 Status: Ordered traZODone 50 mg oral tablet 25 mg, 0.5, tablet, By Mouth, Daily at bedtime, PRN, Refills 0, Maintenance, Insomnia, 02/25/18 16:39:44 EDT Start Date: 02/25/18 Status: Ordered Vitamin D3 = 1,000 International_Units, [...] left(Confirmed) Active 1On right breast, 9:30 position Vital Signs Most recent to oldest [Reference Range]: 1 Height 167 cm (01/01/20 3:39 PM) Social History Social History Type Response Smoking Status Former smoker; Tobac co user in household: No; Type: Cigarettes; Other: 30 years, half a pack to less, quit 9 years ago; entered on: 10/01/17 Sex
--- OUTSIDE RECORDS SUMMARY | 2023-11-01 15:17 | XMS_ITS | Continuity of Care Document ---
Author Organization [facility] Address [address] [place] [address]- Care Team Providers Care Site Safety Coordinator Name Role Phone Devin NAYAK, Theresa Velásquez Primary Care Physic osei [facility] Date[facility]): 09[facility]03[facility]20 - 10/03/20 [facility] [address] [place] [address]- Attending Physician: Kellen Andrews Admitting Physician: AdmKellen garner Referring Physician: AdmtrKellen Allergies, Adverse Reactions, Alerts Substance Reaction Severity [...] 23-valent vaccine 07/13/09 Given 1Result Comment: [05/01/2018] [facility]# [id number] 2Result Comment: [05/23/2017] [facility] 71617-168-94 Medications Biotin By Mouth, Daily, 0 Refills, [...] 02/06/19 14:33:11 EDT, Route to Pharmacy Electronically, [id number], [facility]/pharmacy #[id number] Start Date: 02/06/19 Status: Ordered Claritin 10 mg oral tablet 10 mg, 1, tablet, By Mouth, Daily, # 90 tablet, Refills 1, Tot. Refills 1, Maintenance, 06/23/20 8:51:00 EST, Route to Pharmacy Electronically, [facility]/pharmacy #[id number], 167, cm, 05/05/20 10:33:00 EST, Height, 78.3, kg, 01/02/20 10:47:00 EDT, Dry Weight Start Date: 06/23/20 Status: Ordered diclofenac sodium 75 mg oral delayed release tablet 1 tablet = 75 mg, By Mouth, Daily, # 30 tablet, 1 Refills, Maintenance, 04/23/20 13:21:00 EDT, EC Tablet, [facility]/pharmacy #1893, 167, cm, 01/02/20 10:47:00 EDT, Height, 78.3, kg, 01/02/20 10:47:00 EDT, Dry Weight Start Date: 04/23/20 Status: Ordered Doculase 100 mg oral capsule 1 capsule = 100 mg, By Mouth, 2 times a day, PRN constipation, SOFT GELS. Take with water. Stop taking if loose stools/diarrhea., # 60 capsule, 1 Refills, Soft Stop, 09/28/20 8:49:00 EDT, Capsule, [facility]/pharmacy #[id number], 167, cm, 09/09/20 11:32:00 EST, He... Start Date: 07/28/09 Stop Date: 09/23/21 Status: Ordered docusate sodium 100 mg oral capsule 1 capsule = 100 mg, By Mouth, 2 times a day, PRN for constipation, SOFT GELS. Take with water. Stoptaking if loose stools/diarrhea., # 60 capsule, 1 Refills, Maintenance, 09/28/20 11:55:00 EDT, Capsule, [facility]/pharmacy #[id number], Partial fill upon patient [...] ML BY MOUTH 2 TIMES A DAY, [facility]/pharmacy #[id number] Start Date: 05/01/19 Status: [...] 0 Refills, Soft Stop, 07/22/20 10:09:00 EST, [facility]/pharmacy #[id number], 167, cm, 05/05/20 10:33:00 [...]
--- OUTSIDE RECORDS SUMMARY | 2023-11-01 15:17 | XMS_ITS | Continuity of Care Document ---
Author Organization [facility] Address [address] [place] [address]- Care Team Providers Care Collections Rep Name Role Phone Devin NAYAK, Theresa Velásquez Primary Care Physic osei [facility] Date[facility]s): 11/15/22 - 12/15/22 [facility] [address] [place] [address]- Allergies, Adverse Reactions, Alerts Substance Reaction Severity [...] 23-valent vaccine 07/13/09 Given 1Result Comment: [facility]: 09483-221-69 Bivalent Booster 2Result Comment: [facility]: [id number] 3Result Comment: [facility]: 25519-913-81 4Result Comment: [05/01/2018] [facility]# [id number] 5Result Comment: [05/23/2017] [facility] 65633-174-87 Medications calcium carbonate 600 mg oral tablet 2 tablet = 1,200 mg, By Mouth, Daily, 0 Refills, Maintenance, 10/01/17 10:10:25 EDT Start Date: 10/01/17 Status: Ordered Claritin 10 mg oral tablet 10 mg, 1, tablet, By Mouth, Daily, # 90 tablet, Refills 1, Tot. Refills 1, Maintenance, 06/23/20 8:51:00 EST, Route to Pharmacy Electronically, [facility]/pharmacy #[id number], 167, cm, 05/05/20 10:33:00 EST, Height, 78.3, kg, 01/02/20 10:47:00 EDT, Dry Weight Start Date: 06/23/20 Status: Ordered cyclobenzaprine 10 mg oral tablet 10 mg, 1, tablet, By Mouth, 3 times a day, PRN, # 30 tablet, Refills 1, Tot. Refills 1, Maintenance, for spasm, 11/22/22 14:00:00 EDT, Route to Pharmacy Electronically, [facility]/pharmacy #[id number], Partial fill upon patient request if the prescription is for a... Start Date: 11/22/22 Status: Ordered Doculase 100 mg oral capsule 1 capsule = 100 mg, By Mouth, 2 times a day, PRN constipation, SOFT GELS. Take with water. Stop taking if loose stools/diarrhea., # 60 capsule, 1 Refills, Soft Stop, 09/28/20 8:49:00 EDT, Capsule, [facility]/pharmacy #1893, 167, cm, 09/09/20 11:32:00 EST, He... Start Date: 07/28/09 Stop Date: 09/23/21 Status: Ordered docusate sodium 100 mg oral capsule 1 capsule = 100 mg, By Mouth, 2 times a day, PRN for constipation, SOFT GELS. Take with water. Stoptaking if loose stools/diarrhea., # 60 capsule, 5 Refills, Maintenance, 07/19/22 15:25:00 EST, Capsule, [facility]/pharmacy #1893, Partial fill upon patient r... Start Date: 07/19/22 Status: Ordered fluticasone 50 mcg/inh nasal spray 2 sprays, Nares, Both, 2 times a day, # 16 Gm, 3 Refills, Maintenance, 10/20/22 9:23:00 EDT, [place],[facility]/pharmacy #1893, Partial fill upon patient request if [...] 11/15/22 8:47:00 EDT, Route to Pharmacy Electronically, [facility]/pharmacy #1893, Partial fill upon patient request if the prescription is... Start Date: 11/15/22 Status: Ordered lactulose 10 gm/15 ml oral syrup 15 mL, By Mouth, 2 times a day, PRN NEEDED FOR CONSTIPATION, # 900 mL, 0 Refills, [id number], 30, TAKE 15 ML BY MOUTH 2 TIMES A DAY, NEEDED FOR CONSTIPATION, 167, cm, 07/14/21 8:11:00 EST,Height, 78.3, kg, 01/02/20 10:47:00 EDT, Dry Weight Start Date: 09/16/21 Status: Ordered loratadine 10 mg oral tablet 10 mg, 1, tablet, By Mouth, Daily, # 90 tablet, Refills 1, Tot. Refills 1, Maintenance, 10/20/22 9:15:00 EDT, Route to Pharmacy Electronically, [facility]/pharmacy #1893, Partial fill upon patient request if [...] 12/29/22 23:00:00 EDT, 10/20/22 9:26:00 EDT, [place], [facility]/pharmacy #1893, Partial fill upon patientrequest if the [...] Personnel Name: Devin NAYAK, Theresa Velásquez Position: [facility] Physician - Primary Care Member Role: PCP Address: Address: [address] [place] [id number]- Name: Aleks ALEJANDRE, Margie Position: Reference Physician Member Role: Primary Care Nurse Address: Address: [address] [place] [address] [address] Clinical & [place] [address]- Care Team Related Persons Name: ECTOR MORFIN Name: CHLOE MORFIN Address: home [address] [place] [address]
--- OUTSIDE RECORDS SUMMARY | 2023-11-01 15:17 | XMS_ITS | Continuity of Care Document ---
Author Organization [facility] Address [address] [place] [address]- Care Team Providers Care Auto Air Conditioning Installer Name Role Phone Devin NAYAK, Theresa Velásquez Primary Care Physic osei [facility] Date[facility]): 03[facility]21 - 04/20/21 [facility] [address] [place], [place] [address] Allergies, Adverse Reactions, Alerts Substance Reaction [...] 23-valent vaccine 07/13/09 Given 1Result Comment: [05/01/2018] [facility]# [id number] 2Result Comment: [05/23/2017] [facility] 34033-438-84 Medications Biotin By Mouth, Daily, 0 Refills, [...] 02/06/19 14:33:11 EDT, Route to Pharmacy Electronically, [id number], [facility]/pharmacy #[id number] Start Date: 02/06/19 Status: Ordered Claritin 10 mg oral tablet 10 mg, 1, tablet, By Mouth, Daily, # 90 tablet, Refills 1, Tot. Refills 1, Maintenance, 06/23/20 8:51:00 EST, Route to Pharmacy Electronically, [facility]/pharmacy #[id number], 167, cm, 05/05/20 10:33:00 EST, Height, 78.3, kg, 01/02/20 10:47:00 EDT, Dry Weight Start Date: 06/23/20 Status: Ordered diclofenac sodium 75 mg oral delayed release tablet 1 tablet = 75 mg, By Mouth, Daily, # 30 tablet, 1 Refills, Maintenance, 04/23/20 13:21:00 EDT, EC Tablet, [facility]/pharmacy #[id number], 167, cm, 01/02/20 10:47:00 EDT, Height, 78.3, kg, 01/02/20 10:47:00 EDT, Dry Weight Start Date: 04/23/20 Status: Ordered Doculase 100 mg oral capsule 1 capsule = 100 mg, By Mouth, 2 times a day, PRN constipation, SOFT GELS. Take with water. Stop taking if loose stools/diarrhea., # 60 capsule, 1 Refills, Soft Stop, 09/28/20 8:49:00 EDT, Capsule, [facility]/pharmacy #[id number], 167, cm, 09/09/20 11:32:00 EST, He... Start Date: 07/28/09 Stop Date: 09/23/21 Status: Ordered docusate sodium 100 mg oral capsule 1 capsule = 100 mg, By Mouth, 2 times a day, PRN for constipation, SOFT GELS. Take with water. Stoptaking if loose stools/diarrhea., # 60 capsule, 5 Refills, Maintenance, 12/21/20 10:19:00 EDT, Capsule, [facility]/pharmacy #[id number], Partial fill upon patient r... Start Date: 12/21/20 Status: Ordered Fish Oil By Mouth, 0 Refills, Maintenance, 01/01/20 15:41:00 EDT Start Date: 01/01/20 Status: Ordered Flonase 50 mcg/inh nasal spray 2 sprays, Nares, Both, Daily, in each nostril, # 16 Gm, 5 Refills, Maintenance, 10/28/20 12:19:00 EDT, [facility]/pharmacy #[id number], 2 sprays Nares, Both Daily,x30 days,Instr:in [...] ML BY MOUTH 2 TIMES A DAY, [facility]/pharmacy #[id number] Start Date: 05/01/19 Status: Ordered melatonin [...] 0 Refills, Soft Stop, 03/11/21 18:08:00 EDT, [facility]/pharmacy #[id number], 167, cm, 09/09/20 11:32:00 EST, Height, 78.3, kg, 01/02/20 10:47:00 EDT, Dry Weight Start Date: 03/11/21 Stop Date: 06/09/21 Status: Ordered predniSONE 10 mg oral tablet 1 tablet = 10 mg, By Mouth, Daily, 3 tab x 3 days then 2 tabs x 3 days then 1 tab x 3 days, # 18 tablet, 0 Refills, Maintenance, 03/17/21 8:18:00 EDT, [facility]acy [facility][id number], Partial fill upon patient request [...]
--- OUTSIDE RECORDS SUMMARY | 2023-11-01 15:17 | XMS_ITS | Continuity of Care Document ---
Author Organization [facility] Address [address] [place] [address]- Care Team Providers Care Human Projectile Name Role Phone Devin NAYAK, Theresa Velásquez Primary Care Physic osei [facility] Date[facility]s): 03/15/21 - 04/14/21 [facility] [address] [place], [place] [address] Allergies, Adverse Reactions, Alerts Substance Reaction Severity Status levofloxacin pruritus Active penicillins Active Levaquin H/O: penicillin allergy Acti ve Other Environmental Allergy Active Effexor constipation Active Immunizations Given and [...] Comment: [05/01/2018] [facility]# [id number] 2Result Comment: [05/23/2017] [facility] 20120-559-61 Medications Biotin By Mouth, Daily, 0 Refills, [...] 02/06/19 14:33:11 EDT, Route to Pharmacy Electronically, [id number], [facility]/pharmacy #[id number] Start Date: 02/06/19 Status: Ordered Claritin 10 mg oral tablet 10 mg, 1, tablet, By Mouth, Daily, # 90 tablet, Refills 1, Tot. Refills 1, Maintenance, 06/23/20 8:51:00 EST, Route to Pharmacy Electronically, [facility]/pharmacy #[id number], 167, cm, 05/05/20 10:33:00 EST, Height, 78.3, kg, 01/02/20 10:47:00 EDT, Dry Weight Start Date: 06/23/20 Status: Ordered diclofenac sodium 75 mg oral delayed release tablet 1 tablet = 75 mg, By Mouth, Daily, # 30 tablet, 1 Refills, Maintenance, 04/23/20 13:21:00 EDT, EC Tablet, [facility]/pharmacy #[id number], 167, cm, 01/02/20 10:47:00 EDT, Height, 78.3, kg, 01/02/20 10:47:00 EDT, Dry Weight Start Date: 04/23/20 Status: Ordered Doculase 100 mg oral capsule 1 capsule = 100 mg, By Mouth, 2 times a day, PRN constipation, SOFT GELS. Take with water. Stop taking if loose stools/diarrhea., # 60 capsule, 1 Refills, Soft Stop, 09/28/20 8:49:00 EDT, Capsule, [facility]/pharmacy #[id number], 167, cm, 09/09/20 11:32:00 EST, He... Start Date: 07/28/09 Stop Date: 09/23/21 Status: Ordered docusate sodium 100 mg oral capsule 1 capsule = 100 mg, By Mouth, 2 times a day, PRN for constipation, SOFT GELS. Take with water. Stoptaking if loose stools/diarrhea., # 60 capsule, 5 Refills, Maintenance, 12/21/20 10:19:00 EDT, Capsule, [facility]/pharmacy #[id number], Partial fill upon patient r... Start Date: 12/21/20 Status: Ordered Fish Oil By Mouth, 0 Refills, Maintenance, 01/01/20 15:41:00 EDT Start Date: 01/01/20 Status: Ordered Flonase 50 mcg/inh nasal spray 2 sprays, Nares, Both, Daily, in each nostril, # 16 Gm, 5 Refills, Maintenance, 10/28/20 12:19:00 EDT, [facility]/pharmacy #[id number], 2 sprays Nares, Both Daily,x30 [...] ML BY MOUTH 2 TIMES A DAY, [facility]/pharmacy #[id number] Start Date: 05/01/19 Status: Ordered melatonin [...] 0 Refills, Soft Stop, 03/11/21 18:08:00 EDT, [facility]/pharmacy #[id number], 167, cm, 09/09/20 11:32:00 EST, Height, [...]
--- OUTSIDE RECORDS SUMMARY | 2023-11-01 15:17 | XMS_ITS | Continuity of Care Document ---
Author Organization [facility] em Address Unknown Care Team Providers Care Flush Tester Name Role Phone Devin NAYAK, Theresa Velásquez Primary Care Physic osei Encounter [facility] Date(s): 11/07/22 - 12/07/22 [facility] Attending Physician: Kellen Andrews Admitting Physician: Kellen Andrews Referring Physician: AdmKellen garner Allergies, Adverse Reactions, Alerts Substance Reaction Severity [...] Comment: [facility]: [id number] Bivalent Booster 2Result Comment: [facility]: [id number] 3Result Comment: [facility]: [id number] 4Result Comment: [05/01/2018] [facility]# [id number] 5Result Comment: [05/23/2017] [facility] 14938-482-72 Medications calcium carbonate 600 mg oral tablet 2 tablet = 1,200 mg, By Mouth, Daily, 0 Refills, Maintenance, 10/01/17 10:10:25 EDT Start Date: 10/01/17 Status: Ordered Claritin 10 mg oral tablet 10 mg, 1, tablet, By Mouth, Daily, # 90 tablet, Refills 1, Tot. Refills 1, Maintenance, 06/23/20 8:51:00 EST, Route to Pharmacy Electronically, [facility]/pharmacy #[id number], 167, cm, 05/05/20 10:33:00 EST, Height, 78.3, kg, 01/02/20 10:47:00 EDT, Dry Weight Start Date: 06/23/20 Status: Ordered cyclobenzaprine 10 mg oral tablet 10 mg, 1, tablet, By Mouth, 3 times a day, PRN, # 30 tablet, Refills 1, Tot. Refills 1, Maintenance, for spasm, 11/22/22 14:00:00 EDT, Route to Pharmacy Electronically, [facility]/pharmacy #[id number], Partial fill upon patient request if the prescription is for a... Start Date: 11/22/22 Status: Ordered Doculase 100 mg oral capsule 1 capsule = 100 mg, By Mouth, 2 times a day, PRN constipation, SOFT GELS. Take with water. Stop taking if loose stools/diarrhea., # 60 capsule, 1 Refills, Soft Stop, 09/28/20 8:49:00 EDT, Capsule, [facility]/pharmacy #[id number], 167, cm, 09/09/20 11:32:00 EST, He... Start Date: 07/28/09 Stop Date: 09/23/21 Status: Ordered docusate sodium 100 mg oral capsule 1 capsule = 100 mg, By Mouth, 2 times a day, PRN for constipation, SOFT GELS. Take with water. Stoptaking if loose stools/diarrhea., # 60 capsule, 5 Refills, Maintenance, 07/19/22 15:25:00 EST, Capsule, [facility]/pharmacy #[id number], Partial fill upon patient r... Start Date: 07/19/22 Status: Ordered fluticasone 50 mcg/inh nasal spray 2 sprays, Nares, Both, 2 times a day, # 16 Gm, 3 Refills, Maintenance, 10/20/22 9:23:00 EDT, [place],[facility]/pharmacy #1893, Partial fill upon patient request [...] 11/15/22 8:47:00 EDT, Route to Pharmacy Electronically, [facility]/pharmacy #[id number], Partial fill upon patient request if the prescription is... Start Date: 11/15/22 Status: Ordered lactulose 10 gm/15 ml oral syrup 15 mL, By Mouth, 2 times a day, PRN NEEDED FOR CONSTIPATION, # 900 mL, 0 Refills, [id number], 30, TAKE 15 ML BY MOUTH 2 TIMES A DAY, NEEDED FOR CONSTIPATION, 167, cm, 07/14/21 8:11:00 EST,Height, 78.3, kg, 01/02/20 10:47:00 EDT, Dry Weight Start Date: 09/16/21 Status: Ordered loratadine 10 mg oral tablet 10 mg, 1, tablet, By Mouth, Daily, # 90 tablet, Refills 1, Tot. Refills 1, Maintenance, 10/20/22 9:15:00 EDT, Route to Pharmacy Electronically, [facility]/pharmacy #[id number], Partial fill upon patient request [...] 12/29/22 23:00:00 EDT, 10/20/22 9:26:00 EDT, [place], [facility]/pharmacy #[id number], Partial fill upon patientrequest if [...] Personnel Name: Devin NAYAK, Theresa Velásquez Position: [facility] Physician - Primary Care Member Role: PCP Address: Address: [address] [place] [id number]- Name: Margie Fink NP Position: Reference Physician Member Role: Primary Care Nurse Address: Address: [address] [place] [address] [address] Clinical & [place] [address]- Care Team Related Persons Name: ECTOR MORFIN Name: CHLOE MORFIN Address: home [address] [place] [id number]
--- OUTSIDE RECORDS SUMMARY | 2023-11-01 15:17 | XMS_ITS | Continuity of Care Document ---
Author Organization [facility] Address [address] [place] [address]- Care Team Providers Care Search Engine Marketing Manager Name Role Phone Devin NAYAK, Theresa Velásquez Primary Care Physic osei [facility] Date(s): 09/28/20 - 10/28/20 [facility] [address] [place], [place] [address] Allergies, Adverse Reactions, Alerts Substance [...] 23-valent vaccine 07/13/09 Given 1Result Comment: [05/01/2018] [facility]# [id number] 2Result Comment: [05/23/2017] [facility] 35072-809-75 Medications Biotin By Mouth, Daily, 0 Refills, [...] 02/06/19 14:33:11 EDT, Route to Pharmacy Electronically, [id number], [facility]/pharmacy #[id number] Start Date: 02/06/19 Status: Ordered Claritin 10 mg oral tablet 10 mg, 1, tablet, By Mouth, Daily, # 90 tablet, Refills 1, Tot. Refills 1, Maintenance, 06/23/20 8:51:00 EST, Route to Pharmacy Electronically, [facility]/pharmacy #[id number], 167, cm, 05/05/20 10:33:00 EST, Height, 78.3, kg, 01/02/20 10:47:00 EDT, Dry Weight Start Date: 06/23/20 Status: Ordered diclofenac sodium 75 mg oral delayed release tablet 1 tablet = 75 mg, By Mouth, Daily, # 30 tablet, 1 Refills, Maintenance, 04/23/20 13:21:00 EDT, EC Tablet, [facility]/pharmacy #[id number], 167, cm, 01/02/20 10:47:00 EDT, Height, 78.3, kg, 01/02/20 10:47:00 EDT, Dry Weight Start Date: 04/23/20 Status: Ordered Doculase 100 mg oral capsule 1 capsule = 100 mg, By Mouth, 2 times a day, PRN constipation, SOFT GELS. Take with water. Stop taking if loose stools/diarrhea., # 60 capsule, 1 Refills, Soft Stop, 09/28/20 8:49:00 EDT, Capsule, [facility]/pharmacy #1893, 167, cm, 09/09/20 11:32:00 EST, He... Start Date: 07/28/09 Stop Date: 09/23/21 Status: Ordered docusate sodium 100 mg oral capsule 1 capsule = 100 mg, By Mouth, 2 times a day, PRN for constipation, SOFT GELS. Take with water. Stoptaking if loose stools/diarrhea., # 60 capsule, 1 Refills, Maintenance, 09/28/20 11:55:00 EDT, Capsule, [facility]/pharmacy #[id number], Partial fill upon patient r... Start Date: 09/28/20 Status: Ordered Fish Oil By Mouth, 0 Refills, Maintenance, 01/01/20 15:41:00 EDT Start Date: 01/01/20 Status: Ordered Flonase 50 mcg/inh nasal spray 2 sprays, Nares, Both, Daily, in each nostril, # 16 Gm, 5 Refills, Maintenance, 10/28/20 12:19:00 EDT, [facility]/pharmacy #[id number], 2 sprays Nares, Both Daily,x30 days,Instr:in [...] ML BY MOUTH 2 TIMES A DAY, [facility]/pharmacy #1893 Start Date: 05/01/19 Status: Ordered melatonin [...] # 180 capsule, 0 Refills, Soft Stop, 10/25/20 16:07:00 EDT, [facility]/pharmacy #1893, 167, cm, 09/09/20 11:32:00 EST, Height, 78.3, kg, 01/02/20 10:47:00 EDT, Dry Weight Start Date: 10/25/20 Stop Date: 01/23/21 Status: Ordered Seroquel 800 mg, By Mouth, [...]
--- OUTSIDE RECORDS SUMMARY | 2023-11-01 15:18 | XMS_ITS | Continuity of Care Document ---
Author Organization [facility] Address [address] [place] [address]- Care Team Providers Care Tool And Cutter Grinder Name Role Phone Devin NAYAK, Theresa Velásquez Primary Care Physic osei Encounter 01/11/21 - 02/25/21 [facility] [address], [address] [place] [address]- Attending Physician: Theresa Beltran MD Admitting Physician: Theresa Beltran MD Referring Physician: Theresa Beltran MD Allergies, Adverse Reactions, Alerts Substance Reaction Severity Status levofloxacin pruritus Active Levaquin H/O: penicillin allergy Acti ve Other Environmental Allergy Active penicillins Active Effexor constipation Active Immunizations Given and Recorded Vaccine Date Status Refusal Reason influenza virus vaccine, inactivated 1 05/01/18 Gi dominik influenza virus vaccine, inactivated 2 05/23/17 Gi dominik influenza virus vaccine, inactivated 04/11/16 Give n influenza virus vaccine, inactivated 06/17/15 Give n influenza virus vaccine, inactivated 06/19/14 Give n tetanus/diphtheria/pertussis, acel(Tdap) 12/29/15 Given pneumococcal 23-valent vaccine 07/13/09 Given 1Result Comment: [05/01/2018] [facility]# [id number] 2Result Comment: [05/23/2017] [facility] 31890-352-45 Medications Biotin By Mouth, Daily, 0 Refills, [...] 02/06/19 14:33:11 EDT, Route to Pharmacy Electronically, [id number], [facility]/pharmacy #[id number] Start Date: 02/06/19 Status: Ordered Claritin 10 mg oral tablet 10 mg, 1, tablet, By Mouth, Daily, # 90 tablet, Refills 1, Tot. Refills 1, Maintenance, 06/23/20 8:51:00 EST, Route to Pharmacy Electronically, [facility]/pharmacy #[id number], 167, cm, 05/05/20 10:33:00 EST, Height, 78.3, kg, 01/02/20 10:47:00 EDT, Dry Weight Start Date: 06/23/20 Status: Ordered diclofenac sodium 75 mg oral delayed release tablet 1 tablet = 75 mg, By Mouth, Daily, # 30 tablet, 1 Refills, Maintenance, 04/23/20 13:21:00 EDT, EC Tablet, [facility]/pharmacy #[id number], 167, cm, 01/02/20 10:47:00 EDT, Height, 78.3, kg, 01/02/20 10:47:00 EDT, Dry Weight Start Date: 04/23/20 Status: Ordered Doculase 100 mg oral capsule 1 capsule = 100 mg, By Mouth, 2 times a day, PRN constipation, SOFT GELS. Take with water. Stop taking if loose stools/diarrhea., # 60 capsule, 1 Refills, Soft Stop, 09/28/20 8:49:00 EDT, Capsule, [facility]/pharmacy #1893, 167, cm, 09/09/20 11:32:00 EST, He... Start Date: 07/28/09 Stop Date: 09/23/21 Status: Ordered docusate sodium 100 mg oral capsule 1 capsule = 100 mg, By Mouth, 2 times a day, PRN for constipation, SOFT GELS. Take with water. Stoptaking if loose stools/diarrhea., # 60 capsule, 5 Refills, Maintenance, 12/21/20 10:19:00 EDT, Capsule, [facility]/pharmacy #1893, Partial fill upon patient r... Start Date: 12/21/20 Status: Ordered Fish Oil By Mouth, 0 Refills, Maintenance, 01/01/20 15:41:00 EDT Start Date: 01/01/20 Status: Ordered Flonase 50 mcg/inh nasal spray 2 sprays, Nares, Both, Daily, in each nostril, # 16 Gm, 5 Refills, Maintenance, 10/28/20 12:19:00 EDT, [facility]/pharmacy #[id number], 2 sprays Nares, Both [...] ML BY MOUTH 2 TIMES A DAY, [facility]/pharmacy #1893 Start Date: 05/01/19 Status: [...] 0 Refills, Soft Stop, 10/25/20 16:07:00 EDT, [facility]/pharmacy #[id number], 167, cm, 09/09/20 [...]
--- OUTSIDE RECORDS SUMMARY | 2023-11-01 15:18 | XMS_ITS | Continuity of Care Document ---
Author Organization [facility] Address [address] [place] [address]- Care Team Providers Care Supplier Engineer Name Role Phone Devin NAYAK, Theresa Velásquez Primary Care Physic osei [facility] Date[facility]s): 08/08/22 - 09/07/22 [facility] [address] [place] [address]- Allergies, Adverse Reactions, Alerts Substance Reaction Severity [...] 23-valent vaccine 07/13/09 Given 1Result Comment: [facility]: 59896-391-05 Bivalent Booster 2Result Comment: [facility]: [address]-94 3Result Comment: [facility]: [id number] 4Result Comment: [05/01/2018] [facility]# [id number] 5Result Comment: [05/23/2017] [facility] 35000-319-34 Medications calcium carbonate 600 mg oral tablet 2 tablet = 1,200 mg, By Mouth, Daily, 0 Refills, Maintenance, 10/01/17 10:10:25 EDT Start Date: 10/01/17 Status: Ordered Claritin 10 mg oral tablet 10 mg, 1, tablet, By Mouth, Daily, # 90 tablet, Refills 1, Tot. Refills 1, Maintenance, 06/23/20 8:51:00 EST, Route to Pharmacy Electronically, [facility]/pharmacy #[id number], 167, cm, 05/05/20 10:33:00 EST, Height, 78.3, kg, 01/02/20 10:47:00 EDT, Dry Weight Start Date: 06/23/20 Status: Ordered cyclobenzaprine 10 mg oral tablet 10 mg, 1, tablet, By Mouth, 3 times a day, PRN, # 30 tablet, Refills 1, Tot. Refills 1, Maintenance, for spasm, 08/21/22 18:00:00 EST, Route to Pharmacy Electronically, [facility]/pharmacy #[id number], Partial fill upon patient request if the prescription is for a... Start Date: 08/21/22 Status: Ordered Doculase 100 mg oral capsule 1 capsule = 100 mg, By Mouth, 2 times a day, PRN constipation, SOFT GELS. Take with water. Stop taking if loose stools/diarrhea., # 60 capsule, 1 Refills, Soft Stop, 09/28/20 8:49:00 EDT, Capsule, [facility]/pharmacy #[id number], 167, cm, 09/09/20 11:32:00 EST, He... Start Date: 07/28/09 Stop Date: 09/23/21 Status: Ordered docusate sodium 100 mg oral capsule 1 capsule = 100 mg, By Mouth, 2 times a day, PRN for constipation, SOFT GELS. Take with water. Stoptaking if loose stools/diarrhea., # 60 capsule, 5 Refills, Maintenance, 07/19/22 15:25:00 EST, Capsule, [facility]/pharmacy #1893, Partial fill upon patient r... Start Date: 07/19/22 Status: Ordered Flonase 50 mcg/inh nasal spray 2 sprays, Nares, Both, Daily, in each nostril, # 16 Gm, 5 Refills, Maintenance, 01/20/22 10:37:00 EDT, [facility]/pharmacy #[id number], 2 sprays Nares, [...] 08/21/22 18:00:00 EST, Route to Pharmacy Electronically, [facility]/pharmacy #1893, Partial fill upon patient request if the prescription i... Start Date: 08/21/22 Status: Ordered lactulose 10 gm/15 ml oral syrup 15 mL, By Mouth, 2 times a day, PRN NEEDED FOR CONSTIPATION, # 900 mL, 0 Refills, [facility], 30, TAKE 15 ML BY MOUTH 2 [...] Care Physician Member Role: PCP Address: Address: [address] [place] [id number] Name: Margie Fink NP Position: Reference Physician Member Role: Primary Care Nurse Address: Address: [address] [place] [address] [address] Clinical & [place] [address]- Care Team Related Persons Name: ECTOR MORFIN Name: CHLOE MORFIN Address: [address] [address]
--- OUTSIDE RECORDS SUMMARY | 2023-11-01 15:18 | XMS_ITS | Continuity of Care Document ---
Author Organization [facility] Address [address] [place] [address] [address] [place] [address]- Care Team Providers Care Dock Operations Supervisor Name Role Phone Devin NAYAK, Theresa Velásquez Primary Care Physic osei [facility]counter [facility] Date[facility]s): 04/17/22 - 04/24/22 [facility] [address] [place] [address]- Attending Physician: Tim Cutler MD Referring Physician: Theresa Beltran MD Allergies, Adverse Reactions, Alerts Substance Reaction Severity Status Lovenox Active Other Environmental Allergy Active penicillins Active Effexor constipation Active Levaquin [...] pneumococcal 23-valent vaccine 07/13/09 Given 1Result Comment: [facility]: [id number] 2Result Comment: [05/01/2018] [facility]# [id number] 3Result Comment: [05/23/2017] [facility] 18104-967-81 Medications aspirin 81 mg oral delayed release tablet 81 mg, 1, tablet, By Mouth, Daily, # 30 tablet, Refills 1, Tot. Refills 1, Maintenance, 12/02/21 15:56:00 EDT, Route to Pharmacy Electronically, [facility]/pharmacy #[id number], Partial fill upon patient request if the prescription is for a schedule II opioid drug... Start Date: 12/02/21 Stop Date: 01/31/22 Status: Ordered atorvastatin 40 mg oral tablet 1 tablet = 40 mg, By Mouth, Daily, # 90 tablet, 0 Refills, Maintenance, 11/25/21 17:35:00 EDT, Tablet, [facility]/pharmacy #[id number], Partial fill upon patient request [...] 06/23/20 8:51:00 EST, Route to Pharmacy Electronically, [facility]/pharmacy #[id number], 167, cm, 05/05/20 10:33:00 EST, Height, 78.3, kg, 01/02/20 10:47:00 EDT, Dry Weight Start Date: 06/23/20 Status: Ordered diclofenac sodium 75 mg oral delayed release tablet 1 tablet = 75 mg, By Mouth, Daily, # 30 tablet, 1 Refills, Maintenance, 05/23/21 17:56:00 EST, EC Tablet, [facility]/pharmacy #[id number], 167, cm, 03/17/21 8:09:00 EDT, [...] FOR CONSTIPATION, # 900 mL, 0 Refills, [facility], 30, TAKE 15 ML BY MOUTH 2 [...] 0 Refills, Soft Stop, 04/21/22 10:42:00 EDT, [facility]/pharmacy #1893, 168, cm, 04/17/22 13:06:00 EDT, Height, [...] Confirmed Active 1On right breast, 9:30 position Vital Signs Most recent to oldest [Reference Range]: 1 Height 168 cm (04/17/22 1:06 PM) Social History Social History Type Response Smoking Status Former smoker; Tobac co user in household: No; Type: Cigarettes; Other: 30 years, half a pack to less, quit 9 years ago; entered on: 10/01/17 Sex Patient Care team information Personnel Name: Devin NAYAK, Theresa Velásquez Address: Address: [address] [place] [address]
--- OUTSIDE RECORDS SUMMARY | 2023-11-01 15:18 | XMS_ITS | Continuity of Care Document ---
Author Organization [facility] Address [address] [place] [address]- Care Team Providers Care Plunger Shovel Operator Name Role Phone Devin NAYAK, Theresa Velásquez Primary Care Physic osei Encounter [facility] Date(s): 04/27/22 - 05/04/22 [facility] [address] [place] [address]- Attending Physician: Theresa Beltran MD Allergies, Adverse [...] pneumococcal 23-valent vaccine 07/13/09 Given 1Result Comment: [facility]: 53759-580-73 Bivalent Booster 2Result Comment: [facility]: [id number] 3Result Comment: [facility]: 55745-147-32 4Result Comment: [05/01/2018] [facility]# 70541-248-62 5Result Comment: [05/23/2017] [facility] 39774-137-79 Medications aspirin 81 mg oral delayed release tablet 81 mg, 1, tablet, By Mouth, Daily, # 30 tablet, Refills 1, Tot. Refills 1, Maintenance, 12/02/21 15:56:00 EDT, Route to Pharmacy Electronically, [facility]/pharmacy #[id number], Partial fill upon patient request if the prescription is for a schedule II opioid drug... Start Date: 12/02/21 Stop Date: 01/31/22 Status: Ordered atorvastatin 40 mg oral tablet 1 tablet = 40 mg, By Mouth, Daily, # 90 tablet, 0 Refills, Maintenance, 11/25/21 17:35:00 EDT, Tablet, [facility]/pharmacy #[id number], Partial fill upon patient [...] EST, Route to Pharmacy Electronically, [facility]/pharmacy #[id number], 167, cm, 05/05/20 10:33:00 EST, Height, 78.3, kg, 01/02/20 10:47:00 EDT, Dry Weight Start Date: 06/23/20 Status: Ordered diclofenac sodium 75 mg oral delayed release tablet 1 tablet = 75 mg, By Mouth, Daily, # 30 tablet, 1 Refills, Maintenance, 05/23/21 17:56:00 EST, EC Tablet, [facility]/pharmacy #[id number], 167, cm, 03/17/21 8:09:00 EDT, Height, 78.3, kg, 01/02/20 10:47:00 EDT, Dry Weight Start Date: 05/23/21 Status: Ordered Doculase 100 mg oral capsule 1 capsule = 100 mg, By Mouth, 2 times a day, PRN constipation, SOFT GELS. Take with water. Stop taking if loose stools/diarrhea., # 60 capsule, 1 Refills, Soft Stop, 09/28/20 8:49:00 EDT, Capsule, [facility]/pharmacy #[id number], 167, cm, 09/09/20 11:32:00 EST, He... Start Date: 07/28/09 Stop Date: 09/23/21 Status: Ordered docusate sodium 100 mg oral capsule 1 capsule = 100 mg, By Mouth, 2 times a day, PRN for constipation, SOFT GELS. Take with water. Stoptaking if loose stools/diarrhea., # 60 capsule, 5 Refills, Maintenance, 12/07/21 10:34:00 EDT, Capsule, [facility]/pharmacy #1893, Partial fill upon patient [...] FOR CONSTIPATION, # 900 mL, 0 Refills, [facility] STORE 85289, 30, TAKE 15 ML BY MOUTH 2 [...] 0 Refills, Soft Stop, 04/21/22 10:42:00 EDT, [facility]/pharmacy #[id number], 168, cm, 04/17/22 13:06:00 [...] oldest [Reference Range]: 1 Height 168 cm (04/27/22 11:13 AM) Weight 71.36 kg (04/27/22 11:13 AM) Oxygen Saturation [94-100 %] 95 % (04/27/22 11:13 AM) Pulse Rate [55-90 bpm] 95 bpm *H* (04/27/22 11:13 AM) Body Mass Index [18.5-24.99 kg/m2] 25.28 kg/m2 *H* (04/27/22 11:13 AM) Blood Pressure [90-138/55-84 mm Hg] 104/ 64mm Hg (04/27/22 11:13 AM) Blood pressure sites Arm, right (04/27/22 11:13 AM) Social History Social History Type Response Smoking Status Former smoker; Tobac co user in household: No; Type: Cigarettes; Other: 30 years, half a pack to less, quit 9 years ago; entered on: 10/01/17 Sex Patient Care team information Personnel Name: Devin NAYAK, Theresa Velásquez Address: Address: [address] [place] [id number]
--- OUTSIDE RECORDS SUMMARY | 2023-11-01 15:18 | XMS_ITS | Continuity of Care Document ---
Author Organization [facility] Address [address] [place] [address]- Care Team Providers Care Ocularist Name Role Phone Devin NAYAK, Theresa Velásquez Primary Care Physic osei [facility] Date[facility]): 09[facility]20 - 09/16/20 [facility] [address] [place] [address]- [place] Encounter Diagnosis RUQ abdominal pain(Discharge Diagnosis) - 09/09/20 Attending Physician: Devin NAYAK, Theresa Velásquez Allergies, Adverse Reactions, Alerts Substance Reaction Severity [...] vaccine 07/13/09 Given 1Result Comment: [05/01/2018] [facility]# 29167-734-93 2Result Comment: [05/23/2017] [facility] 20718-029-88 Medications Biotin By Mouth, Daily, 0 Refills, [...] 02/06/19 14:33:11 EDT, Route to Pharmacy Electronically, [id number], [facility]/pharmacy #[id number] Start Date: 02/06/19 Status: Ordered Claritin 10 mg oral tablet 10 mg, 1, tablet, By Mouth, Daily, # 90 tablet, Refills 1, Tot. Refills 1, Maintenance, 06/23/20 8:51:00 EST, [id number], cm, 05/05/20 10:33:00 EST, Height, 78.3, kg, 01/02/20 10:47:00 EDT, Dry Weight Start Date: 06/23/20 Status: Ordered diclofenac sodium 75 mg oral delayed release tablet 1 tablet = 75 mg, By Mouth, Daily, # 30 tablet, 1 Refills, Maintenance, 04/23/20 13:21:00 EDT, EC Tablet, [facility]/pharmacy #1893, 167, cm, 01/02/20 10:47:00 EDT, Height, 78.3, kg, 01/02/20 10:47:00 EDT, Dry Weight Start Date: 04/23/20 Status: Ordered Doculase 100 mg oral capsule 1 capsule = 100 mg, By Mouth, 2 times a day, PRN constipation, SOFT GELS. Take with water. Stop taking if loose stools/diarrhea., # 60 capsule, 11 Refills, Soft Stop, 08/19/19 9:43:00 EST, Capsule, [facility]/pharmacy #[id number], 167, cm, 02/20/19 13:00:00 EDT, H... [...] ML BY MOUTH 2 TIMES A DAY, [facility]/pharmacy #1893 Start Date: 05/01/19 Status: Ordered [...] 0 Refills, Soft Stop, 07/22/20 10:09:00 EST, [facility]/pharmacy #[id number], 167, cm, 05/05/20 10:33:00 EST, [...] left(Confirmed) Active 1On right breast, 9:30 position Diagnosis Diagnosis Type Effective Dates Health Status Cl inical Service Informant RUQ abdominal pain Discharge Diagnosis 09/09/20 Vital Signs Most recent to oldest [Reference Range]: 1 2 Height 167 cm (09/09/20 11:32 AM) 167 cm (09/09/20 11:20 AM) Weight 72.4 kg (09/09/20 11:20 AM) Pulse Rate [55-90 bpm] 83 bpm (09/09/20 11:20 AM) Body Mass Index [18.5-24.99] 25.96 *H* (09/09/20 11:20 AM) Blood Pressure [90-138/55-84 mm Hg] 135/ 81mm Hg (09/09/20 11:32 AM) 148/84mm Hg *H* (09/09/20 11:20 AM) Blood pressure sites Arm, left (09/09/20 11:32 AM) Arm, left (09/09/20 11:20 AM) Weight Obtained Via Standing scale (09/09/20 11:20 AM) Social History Social History Type Response Smoking Status Former smoker; Tobac co user in household: No; Type: Cigarettes; Other: 30 years, half a pack to less, quit 9 years ago; entered on: 10/01/17 Sex
--- OUTSIDE RECORDS SUMMARY | 2023-11-01 15:18 | XMS_ITS | Continuity of Care Document ---
Author Organization [facility] Address [address] [place] [address]- Care Team Providers Care Anatomy And Physiology Instructor Name Role Phone Devin NAYAK, Theresa Velásquez Primary Care Physic osei Encounter [facility] Date(s): 08/26/20 - 09/02/20 [facility] [address] [place] [address]- [place] Encounter Diagnosis RUQ abdominal pain(Discharge Diagnosis) - 08/26/20 Attending Physician: Devin NAYAK, Theresa Velásquez Allergies, [...] 23-valent vaccine 07/13/09 Given 1Result Comment: [05/01/2018] [facility]# [id number] 2Result Comment: [05/23/2017] [facility] 22248-577-68 Medications Biotin By Mouth, Daily, 0 Refills, [...] 02/06/19 14:33:11 EDT, Route to Pharmacy Electronically, [id number], [facility]/pharmacy #[id number] Start Date: 02/06/19 Status: Ordered Claritin 10 mg oral tablet 10 mg, 1, tablet, By Mouth, Daily, # 90 tablet, Refills 1, Tot. Refills 1, Maintenance, 06/23/20 8:51:00 EST, [facility], cm, 05/05/20 10:33:00 EST, Height, 78.3, kg, 01/02/20 10:47:00 EDT, Dry Weight Start Date: 06/23/20 Status: Ordered diclofenac sodium 75 mg oral delayed release tablet 1 tablet = 75 mg, By Mouth, Daily, # 30 tablet, 1 Refills, Maintenance, 04/23/20 13:21:00 EDT, EC Tablet, [facility]/pharmacy #1893, 167, cm, 01/02/20 10:47:00 EDT, Height, 78.3, kg, 01/02/20 10:47:00 EDT, Dry Weight Start Date: 04/23/20 Status: Ordered Doculase 100 mg oral capsule 1 capsule = 100 mg, By Mouth, 2 times a day, PRN constipation, SOFT GELS. Take with water. Stop taking if loose stools/diarrhea., # 60 capsule, 11 Refills, Soft Stop, 08/19/19 9:43:00 EST, Capsule, [facility]/pharmacy #1893, 167, cm, 02/20/19 13:00:00 EDT, [...] ML BY MOUTH 2 TIMES A DAY, [facility]/pharmacy #1893 Start Date: 05/01/19 Status: Ordered [...] 0 Refills, Soft Stop, 07/22/20 10:09:00 EST, [facility]/pharmacy #1893, 167, cm, 05/05/20 10:33:00 EST, [...] Service Informant RUQ abdominal pain Discharge Diagnosis 08/26/20 Vital Signs Most recent to oldest [Reference Range]: 1 Height 167 cm (08/26/20 10:00 AM) Social History Social History Type Response Smoking Status Former smoker; Tobac co user in household: No; Type: Cigarettes; Other: 30 years, half a pack to less, quit 9 years ago; entered on: 10/01/17 Sex
--- OUTSIDE RECORDS SUMMARY | 2023-11-01 15:18 | XMS_ITS | Continuity of Care Document ---
Author Organization [facility] Address Unknown Care Team Providers Care Transfusion Aide Name Role Phone Devin NAYAK, Theresa Velásquez Primary Care Physic osei [place] [facility] [place] 10/25/22 - 11/01/22 [facility] Attending Physician: Margarita Guerrero MD Admitting Physician: Margarita Guerrero MD Referring Physician: Theresa Beltran MD Allergies, [...] Given 1Result Comment: [facility]: 23221-147-44 Bivalent Booster 2Result Comment: [facility]: [address]-87 3Result Comment: [facility]: 55523-332-97 4Result Comment: [05/01/2018] [facility]# 18261-191-04 5Result Comment: [05/23/2017] [facility] 97844-797-20 Medications calcium carbonate 600 mg oral tablet 2 tablet = 1,200 mg, By Mouth, Daily, 0 Refills, Maintenance, 10/01/17 10:10:25 EDT Start Date: 10/01/17 Status: Ordered Claritin 10 mg oral tablet 10 mg, 1, tablet, By Mouth, Daily, # 90 tablet, Refills 1, Tot. Refills 1, Maintenance, 06/23/20 8:51:00 EST, Route to Pharmacy Electronically, [facility]/pharmacy #[id number], 167, cm, 05/05/20 10:33:00 EST, Height, 78.3, kg, 01/02/20 10:47:00 EDT, Dry Weight Start Date: 06/23/20 Status: Ordered cyclobenzaprine 10 mg oral tablet 10 mg, 1, tablet, By Mouth, 3 times a day, PRN, # 30 tablet, Refills 1, Tot. Refills 1, Maintenance, for spasm, 10/10/22 16:02:00 EDT, Route to Pharmacy Electronically, [facility]/pharmacy #[id number], Partial fill upon patient request if the prescription is for a... Start Date: 10/10/22 Status: Ordered Doculase 100 mg oral capsule 1 capsule = 100 mg, By Mouth, 2 times a day, PRN constipation, SOFT GELS. Take with water. Stop taking if loose stools/diarrhea., # 60 capsule, 1 Refills, Soft Stop, 09/28/20 8:49:00 EDT, Capsule, [facility]/pharmacy #[id number], 167, cm, 09/09/20 11:32:00 EST, He... Start Date: 07/28/09 Stop Date: 09/23/21 Status: Ordered docusate sodium 100 mg oral capsule 1 capsule = 100 mg, By Mouth, 2 times a day, PRN for constipation, SOFT GELS. Take with water. Stoptaking if loose stools/diarrhea., # 60 capsule, 5 Refills, Maintenance, 07/19/22 15:25:00 EST, Capsule, [facility]/pharmacy #1893, Partial fill upon patient r... Start Date: 07/19/22 Status: Ordered fluticasone 50 mcg/inh nasal spray 2 sprays, Nares, Both, 2 times a day, # 16 Gm, 3 Refills, Maintenance, 10/20/22 9:23:00 EDT, [place],[facility]/pharmacy #[id number], Partial fill upon patient request [...] 08/21/22 18:00:00 EST, Route to Pharmacy Electronically, [facility]/pharmacy #[id number], Partial fill upon patient request if the prescription i... Start Date: 08/21/22 Status: Ordered lactulose 10 gm/15 ml oral syrup 15 mL, By Mouth, 2 times a day, PRN NEEDED FOR CONSTIPATION, # 900 mL, 0 Refills, [facility] STORE 27351, 30, TAKE 15 ML BY MOUTH 2 TIMES A DAY, NEEDED FOR CONSTIPATION, 167, cm, 07/14/21 8:11:00 EST,Height, 78.3, kg, 01/02/20 10:47:00 EDT, Dry Weight Start Date: 09/16/21 Status: Ordered loratadine 10 mg oral tablet 10 mg, 1, tablet, By Mouth, Daily, # 90 tablet, Refills 1, Tot. Refills 1, Maintenance, 10/20/22 9:15:00 EDT, Route to Pharmacy Electronically, [facility]/pharmacy #[id number], Partial fill upon patient request [...] 23:00:00 EDT, 10/20/22 9:26:00 EDT, [place], [facility]/pharmacy #1893, Partial fill upon patientrequest if the [...] ago; entered on: 10/01/17 Sex Note * Omayra Abraham: PERFORM, SIGN, VERIFY Event Display: Patient Education/Instruction Authored Date: [id number] [facility] [facility] Clinical Summary Name KYLIE MORFIN Age 67 Years 1955 PCP Devin NAYAK, Theresa Velásquez PCP Visit Date 10/25/2022 10:04:00 Additional Instructions: Scheduled Appointments?? Future Appointments ?*[facility] ?[address]??[place],??[place],??[address] ?Phone:??--?Fax:??-- ?Appt. Date:??10/31/2022?1:00 PM ?Scheduled Provider:??Margarita Guerrero MD ?*[facility] ?[address]??[place],??[place],??[address] ?Phone:??--?Fax:??-- ?Appt. Date:??12/04/2022?10:20 AM ?Scheduled Provider:??Omar NAYAK , Theresa Velásquez Follow-Up Instructions ?? With: Address: When: Margarita Guerrero [address] [place] [id number] [facility] (5) [address] [place] [address] 10/31/2022 1:00 PM Diagnosis Medications: Please continue your medications until treatment is completed or stopped by your provider. Discuss any questions related to medications with your provider. Medications to Continue with No Changes These medications were not printed or sent to your pharmacy Calcium Carbonate (calcium carbonate 600 mg oral tablet) 2 tab(s) Oral Daily. Next Dose: Cyclobenzaprine (cyclobenzaprine 10 mg oral tablet) 1 tab(s) Oral 3 times a day as needed for spasm. Refills: 1. Next Dose: Docusate (Doculase 100 mg oral [...] as needed for insomnia. OTC. Next Dose: Metoprolol (metoprolol 50 mg oral tablet) 1 tab(s) Oral twice a day. Refills: 0. Next Dose: Multivitamin Oral Daily. Next Dose: Nicotine (Nicotine 7 mg/24 hour patch) 1 patch(es) Topically Daily. apply to skin and rotate site every 24 hours. Refills: 1. Next Dose: Omeprazole (omeprazole 20 mg oral enteric coated capsule) 1 capsule Oral twice a day for 90 Days. Refills: 0. Next Dose: Quetiapine (Seroquel) 800 Milligram Oral Daily at Bedtime. Next Dose: Allergy Info:?? Other Environmental Allergy; Bee Stings; Levaquin; Effexor; Lovenox; penicillins Medications Given This Visit Future Orders ?No future orders Vital Signs Height Weight BMI Blood Pressure / Temperature Pulse Rate Respiratory Rate 02 Sat Mode of Delivery / You can now view a summary of your hospital visit from the comfort of your home through a free online portal called [employer]. [employer] is a website that allows you to securely view your medical information including discharge summary, medications and follow-up visits. ??You can alsosend a secure electronic message to your doctor???s office to request appointments, renew medications or just ask a question. You can enroll at [email or web address] or register during your next office visit. [...] primary care provider, you may find a [facility] provider by calling [facility] [employer] at [phone]. For information about the plan of care [...] Physician Member Role: PCP Address: Address: [address] [place] [address]- Name: Margie Fink NP Position: Reference Physician Member Role: Primary Care Nurse Address: Address: [address] [place] [address] [address] Clinical & [place] [address]- Care Team Related Persons Name: ECTOR MORFIN Name: CHLOE MORFIN Address: home [address] [place] [address]
--- OUTSIDE RECORDS SUMMARY | 2023-11-01 15:18 | XMS_ITS | Continuity of Care Document ---
Author Organization [facility] Address [address] [place] [address]- Care Team Providers Care Commercial Mortgage Broker Name Role Phone Devin NAYAK, Theresa Velásquez Primary Care Physic osei [facility] Date[facility]s): 09/09/20 - 10/09/20 [facility] [address] [place] [address]- Attending Physician: Kellen Andrews Admitting Physician: AdmKellen [...] 23-valent vaccine 07/13/09 Given 1Result Comment: [05/01/2018] [facility]# [id number] 2Result Comment: [05/23/2017] [facility] 77445-106-40 Medications Biotin By Mouth, Daily, 0 Refills, [...] 02/06/19 14:33:11 EDT, Route to Pharmacy Electronically, [id number], [facility]/pharmacy #1893 Start Date: 02/06/19 Status: Ordered Claritin 10 mg oral tablet 10 mg, 1, tablet, By Mouth, Daily, # 90 tablet, Refills 1, Tot. Refills 1, Maintenance, 06/23/20 8:51:00 EST, Route to Pharmacy Electronically, [facility]/pharmacy #1893, 167, cm, 05/05/20 10:33:00 EST, Height, 78.3, kg, 01/02/20 10:47:00 EDT, Dry Weight Start Date: 06/23/20 Status: Ordered diclofenac sodium 75 mg oral delayed release tablet 1 tablet = 75 mg, By Mouth, Daily, # 30 tablet, 1 Refills, Maintenance, 04/23/20 13:21:00 EDT, EC Tablet, [facility]/pharmacy #1893, 167, cm, 01/02/20 10:47:00 EDT, Height, 78.3, kg, 01/02/20 10:47:00 EDT, Dry Weight Start Date: 04/23/20 Status: Ordered Doculase 100 mg oral capsule 1 capsule = 100 mg, By Mouth, 2 times a day, PRN constipation, SOFT GELS. Take with water. Stop taking if loose stools/diarrhea., # 60 capsule, 1 Refills, Soft Stop, 09/28/20 8:49:00 EDT, Capsule, [facility]/pharmacy #1893, 167, cm, 09/09/20 11:32:00 EST, He... Start Date: 07/28/09 Stop Date: 09/23/21 Status: Ordered docusate sodium 100 mg oral capsule 1 capsule = 100 mg, By Mouth, 2 times a day, PRN for constipation, SOFT GELS. Take with water. Stoptaking if loose stools/diarrhea., # 60 capsule, 1 Refills, Maintenance, 09/28/20 11:55:00 EDT, Capsule, [facility]/pharmacy #1893, Partial fill upon patient r... Start [...] ML BY MOUTH 2 TIMES A DAY, [facility]/pharmacy #1893 Start Date: 05/01/19 Status: Ordered melatonin [...] 0 Refills, Soft Stop, 07/22/20 10:09:00 EST, [facility]/pharmacy #1893, 167, cm, 05/05/20 10:33:00 EST, Height, [...]
--- OUTSIDE RECORDS SUMMARY | 2023-11-01 15:18 | XMS_ITS | Continuity of Care Document ---
Author Organization [facility] Address [address] [place] [address]- Care Team Providers Care Natural Resource Technician Name Role Phone Devin NAYAK, Theresa Velásquez Primary Care Physic osei [facility] - [facility]23 [facility] [address] [place], [place] [address] Attending Physician: Juliana, Kellen Admitting Physician: AdmtrKellen Referring Physician: Admtr, Ar8 Allergies, Adverse Reactions, Alerts Substance Reaction Severity Status penicillins ? reaction Active Lovenox itching Active Effexor constipation Active Levaquin H/O: penicillin allergy Acti ve Bee Stings swelling Active Other Environmental Allergy pet hair, trees, grass, po llen Active Immunizations Given and Recorded Vaccine Date [...] pneumococcal 23-valent vaccine 07/13/09 Given 1Result Comment: [facility]: 44513-578-60 Bivalent Booster 2Result Comment: [facility]: [id number] 3Result Comment: [facility]: 16856-747-43 4Result Comment: [05/01/2018] [facility]# [id number] 5Result Comment: [05/23/2017] [facility] [id number] Medications calcium carbonate 600 mg oral tablet 2 tablet = 1,200 mg, By Mouth, Daily, 0 Refills, Maintenance, 10/01/17 10:10:25 EDT Start Date: 10/01/17 Status: Ordered cyclobenzaprine 10 mg oral tablet 10 mg, 1, tablet, By Mouth, 3 times a day, PRN, # 30 tablet, Refills 1, Tot. Refills 1, Maintenance, for spasm, 02/21/23 8:21:00 EDT, [facility] Pharmacy Electron[facility], [facility] [...] Refills, Soft Stop, 09/18/23 11:23:00 EDT, Capsule, [facility]/pharmacy #1893, 169, cm, 09/14/23 9:14:00 EDT, H... Start Date: 07/28/09 Status: Ordered EpiPen 2-Shade 0.3 mg injectable kit = 0.3 mg, Intramuscular, Once, # 1 pack/packet, 1 Refills, Soft Stop, 06/11/23 17:25:00 EST, [facility]/pharmacy #1893, Partial fill upon [...] Gm, 3 Refills, Maintenance, 07/20/23 15:17:00 EST, [place], [facility]/pharmacy #1893, Partial fill upon [...] 09/18/23 11:24:00 EDT, Route to Pharmacy Electronically, [facility]/pharmacy #1893, Partial fill upon patient request if the prescription is for a schedule II o... Start Date: 09/18/23 Status: Ordered lactulose 10 gm/15 ml oral syrup 15 mL, By Mouth, 2 times a day, PRN NEEDED FOR CONSTIPATION, # 900 mL, 0 Refills, [facility] STORE 99596, 30, TAKE 15 ML BY MOUTH 2 TIMES A DAY, NEEDED FOR CONSTIPATION, 167, cm, 07/14/21 8:11:00 EST,Height, 78.3, kg, 01/02/20 10:47:00 EDT, Dry Weight Start Date: 09/16/21 Status: Ordered loratadine 10 mg oral tablet 1, tablet, By Mouth, Daily, # 90 tablet, Refills 1, Tot. Refills 1, Maintenance, 04/17/23 21:12:00 EDT, Route to Pharmacy Electronically, [facility]/pharmacy #1893, 168, cm, 01/17/23 10:21:00 EDT, [...] 0 Refills, Maintenance, 01/26/23 17:56:00 EDT, Capsule, [facility]/pharmacy #1893, Partial fill [...] Event Display: Laboratory Result Scanned Authored Date: Cardiology * Event Display: Cardiology Office Note, Non-BH Authored Date: MG Breast Views * Event Display: MM Mammogram Authored Date: Radiology * Event Display: IR Special Procedures Authored Date: * Event Display: Radiology Result Scanned Authored Date: * Theresa Nelson MD October Christen: REVIEW Event Display: Radiology Result Scanned Authored Date: * Theresa Nelson MD October D: REVIEW Event Display: Radiology Result Scanned Authored Date: Patient Care team information Care Team Personnel Name: Theresa Beltran MD Position: [facility] Physician - Primary Care Member Role: PCP Address: Address: [address] [place] [address]- [place] Name: Margie Fink NP Position: Reference Physician Member Role: Primary Care Nurse Address: Address: [address] [place] [address] [address] Clinical & [place] [address]- [place] Care Team Related Persons Name: ECTOR MORFIN Name: CHLOE MORFIN Address: home [address] [place] [address]
--- OUTSIDE RECORDS SUMMARY | 2023-11-01 15:18 | XMS_ITS | Continuity of Care Document ---
Author Organization [facility] Address [address] [place] [address]- Care Team Providers Care Road Cleaner Name Role Phone Devin NAYAK, Theresa Velásquez Primary Care Physic osei [facility]20 [facility] [address] [place], [place] [address] Allergies, Adverse Reactions, Alerts [...] 23-valent vaccine 07/13/09 Given 1Result Comment: [05/01/2018] [facility]# [id number] 2Result Comment: [05/23/2017] [facility] [id number] Medications Biotin By Mouth, Daily, 0 Refills, [...] 02/06/19 14:33:11 EDT, Route to Pharmacy Electronically, [id number], [facility]/pharmacy #[id number] Start Date: 02/06/19 Status: Ordered Claritin 10 mg oral tablet 10 mg, 1, tablet, By Mouth, Daily, # 90 tablet, Refills 1, Tot. Refills 1, Maintenance, 06/23/20 8:51:00 EST, Route to Pharmacy Electronically, [facility]/pharmacy #[id number], 167, cm, 05/05/20 10:33:00 EST, Height, 78.3, kg, 01/02/20 10:47:00 EDT, Dry Weight Start Date: 06/23/20 Status: Ordered diclofenac sodium 75 mg oral delayed release tablet 1 tablet = 75 mg, By Mouth, Daily, # 30 tablet, 1 Refills, Maintenance, 04/23/20 13:21:00 EDT, EC Tablet, [facility]/pharmacy #[id number], 167, cm, 01/02/20 10:47:00 EDT, Height, 78.3, kg, 01/02/20 10:47:00 EDT, Dry Weight Start Date: 04/23/20 Status: Ordered Doculase 100 mg oral capsule 1 capsule = 100 mg, By Mouth, 2 times a day, PRN constipation, SOFT GELS. Take with water. Stop taking if loose stools/diarrhea., # 60 capsule, 1 Refills, Soft Stop, 09/28/20 8:49:00 EDT, Capsule, [facility]/pharmacy #[id number], 167, cm, 09/09/20 11:32:00 EST, He... Start Date: 07/28/09 Stop Date: 09/23/21 Status: Ordered docusate sodium 100 mg oral capsule 1 capsule = 100 mg, By Mouth, 2 times a day, PRN for constipation, SOFT GELS. Take with water. Stoptaking if loose stools/diarrhea., # 60 capsule, 1 Refills, Maintenance, 09/28/20 11:55:00 EDT, Capsule, [facility]/pharmacy #[id number], Partial fill upon patient r... Start [...] ML BY MOUTH 2 TIMES A DAY, [facility]/pharmacy #[id number] Start Date: 05/01/19 Status: Ordered melatonin [...] 0 Refills, Soft Stop, 07/22/20 10:09:00 EST, [facility]/pharmacy #[id number], 167, cm, 05/05/20 10:33:00 EST, Height, [...]
--- OUTSIDE RECORDS SUMMARY | 2023-11-01 15:18 | XMS_ITS | Continuity of Care Document ---
Author Organization [facility] Address [address] [place] [address]- Care Team Providers Care Legal Mediator Name Role Phone Devin NAYAK, Theresa Velásquez Primary Care Physic osei [facility] 10[facility]22 - 11/08/22 [facility] [address] [place] [address]- Allergies, Adverse Reactions, Alerts Substance Reaction Severity [...] 23-valent vaccine 07/13/09 Given 1Result Comment: [facility]: 11745-262-05 Bivalent Booster 2Result Comment: [facility]: [id number] 3Result Comment: [facility]: [id number] 4Result Comment: [05/01/2018] [facility]# [id number] 5Result Comment: [05/23/2017] [facility] [id number] Medications calcium carbonate 600 mg oral tablet 2 tablet = 1,200 mg, By Mouth, Daily, 0 Refills, Maintenance, 10/01/17 10:10:25 EDT Start Date: 10/01/17 Status: Ordered Claritin 10 mg oral tablet 10 mg, 1, tablet, By Mouth, Daily, # 90 tablet, Refills 1, Tot. Refills 1, Maintenance, 06/23/20 8:51:00 EST, Route to Pharmacy Electronically, [facility]/pharmacy #[id number], 167, cm, 05/05/20 10:33:00 EST, Height, 78.3, kg, 01/02/20 10:47:00 EDT, Dry Weight Start Date: 06/23/20 Status: Ordered cyclobenzaprine 10 mg oral tablet 10 mg, 1, tablet, By Mouth, 3 times a day, PRN, # 30 tablet, Refills 1, Tot. Refills 1, Maintenance, for spasm, 10/10/22 16:02:00 EDT, Route to Pharmacy Electronically, [facility]/pharmacy #[id number], Partial fill upon patient request if the prescription is for a... Start Date: 10/10/22 Status: Ordered Doculase 100 mg oral capsule 1 capsule = 100 mg, By Mouth, 2 times a day, PRN constipation, SOFT GELS. Take with water. Stop taking if loose stools/diarrhea., # 60 capsule, 1 Refills, Soft Stop, 09/28/20 8:49:00 EDT, Capsule, [facility]/pharmacy #[id number], 167, cm, 09/09/20 11:32:00 EST, He... Start Date: 07/28/09 Stop Date: 09/23/21 Status: Ordered docusate sodium 100 mg oral capsule 1 capsule = 100 mg, By Mouth, 2 times a day, PRN for constipation, SOFT GELS. Take with water. Stoptaking if loose stools/diarrhea., # 60 capsule, 5 Refills, Maintenance, 07/19/22 15:25:00 EST, Capsule, [facility]/pharmacy #[id number], Partial fill upon patient r... Start Date: 07/19/22 Status: Ordered fluticasone 50 mcg/inh nasal spray 2 sprays, Nares, Both, 2 times a day, # 16 Gm, 3 Refills, Maintenance, 10/20/22 9:23:00 EDT, [place],[facility]/pharmacy #[id number], Partial fill upon patient [...] 08/21/22 18:00:00 EST, Route to Pharmacy Electronically, [facility]/pharmacy #[id number], Partial fill upon patient request if the prescription i... Start Date: 08/21/22 Status: Ordered lactulose 10 gm/15 ml oral syrup 15 mL, By Mouth, 2 times a day, PRN NEEDED FOR CONSTIPATION, # 900 mL, 0 Refills, [facility] STORE 74315, 30, TAKE 15 ML BY MOUTH 2 TIMES A DAY, NEEDED FOR CONSTIPATION, 167, cm, 07/14/21 8:11:00 EST,Height, 78.3, kg, 01/02/20 10:47:00 EDT, Dry Weight Start Date: 09/16/21 Status: Ordered loratadine 10 mg oral tablet 10 mg, 1, tablet, By Mouth, Daily, # 90 tablet, Refills 1, Tot. Refills 1, Maintenance, 10/20/22 9:15:00 EDT, Route to Pharmacy Electronically, [facility]/pharmacy #[id number], Partial fill upon patient [...] 12/29/22 23:00:00 EDT, 10/20/22 9:26:00 EDT, [place], [facility]/pharmacy #[id number], Partial fill upon patientrequest if [...] Personnel Name: Devin NAYAK, Theresa Velásquez Position: [facility] Primary Care Physician Member Role: PCP Address: Address: [address] [place] [address]- Name: Margie Fink NP Position: Reference Physician Member Role: Primary Care Nurse Address: Address: [address] [place] [address] [address] Clinical & [place] [address]- Care Team Related Persons Name: ECTOR MORFIN Name: CHLOE MORFIN Address: home [address] [place] [address]
--- OUTSIDE RECORDS SUMMARY | 2023-11-01 15:18 | XMS_ITS | Continuity of Care Document ---
Author Organization [facility] Address [address] [place] [address]- Care Team Providers Care Fire Lookout Name Role Phone Devin NAYAK, Theresa Velásquez Primary Care Physic osei [facility] 08[facility]21 - 09/18/21 [facility] [address] [place], [place] [address] Allergies, Adverse Reactions, Alerts Substance [...] pneumococcal 23-valent vaccine 07/13/09 Given 1Result Comment: [facility]: [id number] 2Result Comment: [05/01/2018] [facility]# [id number] 3Result Comment: [05/23/2017] [facility] [id number] Medications Biotin By Mouth, Daily, 0 Refills, [...] 06/23/20 8:51:00 EST, Route to Pharmacy Electronically, [facility]/pharmacy #[id number], 167, cm, 05/05/20 10:33:00 EST, Height, 78.3, kg, 01/02/20 10:47:00 EDT, Dry Weight Start Date: 06/23/20 Status: Ordered diclofenac sodium 75 mg oral delayed release tablet 1 tablet = 75 mg, By Mouth, Daily, # 30 tablet, 1 Refills, Maintenance, 05/23/21 17:56:00 EST, EC Tablet, [facility]/pharmacy #[id number], 167, cm, 03/17/21 8:09:00 EDT, Height, 78.3, kg, 01/02/20 10:47:00 EDT, Dry Weight Start Date: 05/23/21 Status: Ordered Doculase 100 mg oral capsule 1 capsule = 100 mg, By Mouth, 2 times a day, PRN constipation, SOFT GELS. Take with water. Stop taking if loose stools/diarrhea., # 60 capsule, 1 Refills, Soft Stop, 09/28/20 8:49:00 EDT, Capsule, [facility]/pharmacy #1893, 167, cm, 09/09/20 11:32:00 EST, He... Start Date: 07/28/09 Stop Date: 09/23/21 Status: Ordered docusate sodium 100 mg oral capsule 1 capsule = 100 mg, By Mouth, 2 times a day, PRN for hard stool, SOFT GELS. Take with water. Stop taking if loose stools/diarrhea., # 20 capsule, 0 Refills, Maintenance, 08/23/21 16:43:00 EST, Capsule, [facility]/pharmacy #[id number], Partial fill upon patient req... Start Date: 08/23/21 Stop Date: 09/22/21 Status: Ordered Flonase 50 mcg/inh nasal spray 2 sprays, Nares, Both, Daily, in each nostril, # 16 Gm, 5 Refills, Maintenance, 10/28/20 12:19:00 EDT, [facility]/pharmacy #1893, 2 sprays Nares, Both Daily,x30 days,Instr:in [...] FOR CONSTIPATION, # 900 mL, 0 Refills, [facility] STORE 69936, 30, TAKE 15 ML BY MOUTH 2 [...] 0 Refills, Soft Stop, 07/21/21 8:42:00 EST, [facility]/pharmacy #1893, 167, cm, 07/14/21 8:11:00 EST, Height, [...] Refills, Maintenance, 03/21/21 13:47:00 EDT, Capsule, [facility]/pharmacy #[id number], Partial fill upon patient request if the [...]
--- OUTSIDE RECORDS SUMMARY | 2023-11-01 15:18 | XMS_ITS | Continuity of Care Document ---
Author Organization [facility] Address [address] [place] [address]- Care Team Providers Care Gumming Machine Operator Name Role Phone Devin NAYAK, Theresa Velásquez Primary Care Physic osei [facility]): 09/06/23 - 10/06/23 [facility] [address] [place], [place] [address] Allergies, Adverse Reactions, Alerts Substance Reaction Severity [...] pneumococcal 23-valent vaccine 07/13/09 Given 1Result Comment: [facility]: 11283-384-88 Bivalent Booster 2Result Comment: [facility]: [id number] 3Result Comment: [facility]: [id number] 4Result Comment: [05/01/2018] [facility]# [id number] 5Result Comment: [05/23/2017] [facility] [id number] Medications calcium carbonate 600 mg oral tablet 2 tablet = 1,200 mg, By Mouth, Daily, 0 Refills, Maintenance, 10/01/17 10:10:25 EDT Start Date: 10/01/17 Status: Ordered cyclobenzaprine 10 mg oral tablet 10 mg, 1, tablet, By Mouth, 3 times a day, PRN, # 30 tablet, Refills 1, Tot. Refills 1, Maintenance, for spasm, 02/21/23 8:21:00 EDT, Route to Pharmacy Electronically, [facility]/pharmacy #[id number], Partial fill upon patient request if the prescription is for a... Start Date: 02/21/23 Status: Ordered Doculase 100 mg oral capsule 1 capsule = 100 mg, By Mouth, 2 times a day, PRN constipation, SOFT GELS. Take with water. Stop taking if loose stools/diarrhea., # 180 capsule, 1 Refills, Soft Stop, 09/18/23 11:23:00 EDT, Capsule, [facility]/pharmacy #[id number], 169, cm, 09/14/23 9:14:00 EDT, H... Start Date: 07/28/09 Status: Ordered EpiPen 2-Shade 0.3 mg injectable kit = 0.3 mg, Intramuscular, Once, # 1 pack/packet, 1 Refills, Soft Stop, 06/11/23 17:25:00 EST, [facility]/pharmacy #[id number], Partial fill upon patient request if [...] Gm, 3 Refills, Maintenance, 07/20/23 15:17:00 EST, [place], [facility]/pharmacy #1893, Partial fill upon patient request if [...] 09/18/23 11:24:00 EDT, Route to Pharmacy Electronically, [facility]/pharmacy #[id number], Partial fill upon patient request if the prescription is for a schedule II o... Start Date: 09/18/23 Status: Ordered lactulose 10 gm/15 ml oral syrup 15 mL, By Mouth, 2 times a day, PRN NEEDED FOR CONSTIPATION, # 900 mL, 0 Refills, [facility] STORE 27832, 30, TAKE 15 ML BY MOUTH 2 TIMES A DAY, NEEDED FOR CONSTIPATION, 167, cm, 07/14/21 8:11:00 EST,Height, 78.3, kg, 01/02/20 10:47:00 EDT, Dry Weight Start Date: 09/16/21 Status: Ordered loratadine 10 mg oral tablet 1, tablet, By Mouth, Daily, # 90 tablet, Refills 1, Tot. Refills 1, Maintenance, 04/17/23 21:12:00 EDT, Route to Pharmacy Electronically, [facility]/pharmacy #[id number], 168, cm, 01/17/23 10:21:00 EDT, Height, [...] 0 Refills, Maintenance, 01/26/23 17:56:00 EDT, Capsule, [facility]/pharmacy #1893, Partial fill upon patient request if [...] Primary Care Member Role: PCP Address: Address: [address] [place] [id number]- Name: Margie Fink NP Position: Reference Physician Member Role: Primary Care Nurse Address: Address: [address] [place] [address] [address] Clinical & [place] [address]- Care Team Related Persons Name: ECTOR MORFIN Name: CHLOE MORFIN Address: home [address] [place] [address]
--- OUTSIDE RECORDS SUMMARY | 2023-11-01 15:18 | XMS_ITS | Continuity of Care Document ---
Author Organization [facility] Address [address] [place] [address]- Care Team Providers Care Citrus Fruit Colorer Name Role Phone Devin NAYAK, Theresa Velásquez Primary Care Physic osei [facility]): 08/24/23 - 09/23/23 [facility] [address] [place], [place] [address] Allergies, Adverse Reactions, Alerts Substance Reaction Severity Status penicillins ? reaction Active Lovenox itching Active Other Environmental Allergy pet hair, trees, grass, po llen Active Effexor constipation Active Levaquin H/O: penicillin [...] pneumococcal 23-valent vaccine 07/13/09 Given 1Result Comment: [facility]: 58776-525-02 Bivalent Booster 2Result Comment: [facility]: [id number] 3Result Comment: [facility]: [id number] 4Result Comment: [05/01/2018] [facility]# [id number] 5Result Comment: [05/23/2017] [facility] [id number] Medications calcium carbonate 600 mg oral tablet 2 tablet = 1,200 mg, By Mouth, Daily, 0 Refills, Maintenance, 10/01/17 10:10:25 EDT Start Date: 10/01/17 Status: Ordered cyclobenzaprine 10 mg oral tablet 10 mg, 1, tablet, By Mouth, 3 times a day, PRN, # 30 tablet, Refills 1, Tot. Refills 1, Maintenance, for spasm, 02/21/23 8:21:00 EDT, Route to Pharmacy Electronically, [facility]/pharmacy #[id number], Partial fill upon patient request if the prescription is for a... Start Date: 02/21/23 Status: Ordered Doculase 100 mg oral capsule 1 capsule = 100 mg, By Mouth, 2 times a day, PRN constipation, SOFT GELS. Take with water. Stop taking if loose stools/diarrhea., # 180 capsule, 1 Refills, Soft Stop, 09/18/23 11:23:00 EDT, Capsule, [facility]/pharmacy #1893, 169, cm, 09/14/23 9:14:00 EDT, H... Start Date: 07/28/09 Status: Ordered EpiPen 2-Shade 0.3 mg injectable kit = 0.3 mg, Intramuscular, Once, # 1 pack/packet, 1 Refills, Soft Stop, 06/11/23 17:25:00 EST, [facility]/pharmacy #[id number], Partial fill upon patient request [...] Gm, 3 Refills, Maintenance, 07/20/23 15:17:00 EST, [place], [facility]/pharmacy #1893, Partial fill upon patient request [...] 09/18/23 11:24:00 EDT, Route to Pharmacy Electronically, [facility]/pharmacy #1893, Partial fill upon patient request if the prescription is for a schedule II o... Start Date: 09/18/23 Status: Ordered lactulose 10 gm/15 ml oral syrup 15 mL, By Mouth, 2 times a day, PRN NEEDED FOR CONSTIPATION, # 900 mL, 0 Refills, [facility] STORE 39151, 30, TAKE 15 ML BY MOUTH 2 TIMES A DAY, NEEDED FOR CONSTIPATION, 167, cm, 07/14/21 8:11:00 EST,Height, 78.3, kg, 01/02/20 10:47:00 EDT, Dry Weight Start Date: 09/16/21 Status: Ordered loratadine 10 mg oral tablet 1, tablet, By Mouth, Daily, # 90 tablet, Refills 1, Tot. Refills 1, Maintenance, 04/17/23 21:12:00 EDT, Route to Pharmacy Electronically, [facility]/pharmacy #[id number], 168, cm, 01/17/23 10:21:00 EDT, [...] Stop 09/27/23 13:02:00 EDT, 06/29/23 13:02:00 EST, [facility]/pharmacy #1893, 168, cm, 01/17/23 10:21:00 EDT, [...] 0 Refills, Maintenance, 01/26/23 17:56:00 EDT, Capsule, [facility]/pharmacy #1893, Partial fill upon patient request [...] Personnel Name: Devin NAYAK, Theresa Velásquez Position: [facility] Physician - Primary Care Member Role: PCP Address: Address: [address] [place] [id number]- Name: Margie Fink NP Position: Reference Physician Member Role: Primary Care Nurse Address: Address: [address] [place] [address] [address] Clinical & [place] [address]- Care Team Related Persons Name: ECTOR MORFIN Name: CHLOE MORFIN Address: home [address] [place] [address]
--- OUTSIDE RECORDS SUMMARY | 2023-11-01 15:18 | XMS_ITS | Continuity of Care Document ---
Author Organization [facility] Address [address] [place] [address]- Care Team Providers Care Credit Associate Name Role Phone Devin NAYAK, Theresa Velásquez Primary Care Physic osei [facility] 09[facility]20 - 10/15/20 [facility] [address] [place], [place] [address] Allergies, Adverse Reactions, Alerts Substance Reaction [...] vaccine 07/13/09 Given 1Result Comment: [05/01/2018] [facility]# [id number] 2Result Comment: [05/23/2017] [facility] [id number] Medications Biotin By Mouth, Daily, 0 Refills, [...] 02/06/19 14:33:11 EDT, Route to Pharmacy Electronically, [id number], [facility]/pharmacy #[id number] Start Date: 02/06/19 Status: Ordered Claritin 10 mg oral tablet 10 mg, 1, tablet, By Mouth, Daily, # 90 tablet, Refills 1, Tot. Refills 1, Maintenance, 06/23/20 8:51:00 EST, Route to Pharmacy Electronically, [facility]/pharmacy #[id number], 167, cm, 05/05/20 10:33:00 EST, Height, 78.3, kg, 01/02/20 10:47:00 EDT, Dry Weight Start Date: 06/23/20 Status: Ordered diclofenac sodium 75 mg oral delayed release tablet 1 tablet = 75 mg, By Mouth, Daily, # 30 tablet, 1 Refills, Maintenance, 04/23/20 13:21:00 EDT, EC Tablet, [facility]/pharmacy #[id number], 167, cm, 01/02/20 10:47:00 EDT, Height, 78.3, kg, 01/02/20 10:47:00 EDT, Dry Weight Start Date: 04/23/20 Status: Ordered Doculase 100 mg oral capsule 1 capsule = 100 mg, By Mouth, 2 times a day, PRN constipation, SOFT GELS. Take with water. Stop taking if loose stools/diarrhea., # 60 capsule, 1 Refills, Soft Stop, 09/28/20 8:49:00 EDT, Capsule, [facility]/pharmacy #1893, 167, cm, 09/09/20 11:32:00 EST, He... Start Date: 07/28/09 Stop Date: 09/23/21 Status: Ordered docusate sodium 100 mg oral capsule 1 capsule = 100 mg, By Mouth, 2 times a day, PRN for constipation, SOFT GELS. Take with water. Stoptaking if loose stools/diarrhea., # 60 capsule, 1 Refills, Maintenance, 09/28/20 11:55:00 EDT, Capsule, [facility]/pharmacy #1893, Partial fill upon patient [...] ML BY MOUTH 2 TIMES A DAY, [facility]/pharmacy #1893 Start Date: 05/01/19 Status: Ordered [...] 0 Refills, Soft Stop, 07/22/20 10:09:00 EST, [facility]/pharmacy #1893, 167, cm, 05/05/20 10:33:00 [...]
--- OUTSIDE RECORDS SUMMARY | 2023-11-01 15:18 | XMS_ITS | Continuity of Care Document ---
Author Organization [facility] Address [address] [place] [address]- Care Team Providers Care Is Analyst Name Role Phone Devin NAYAK, Theresa Velásquez Primary Care Physic osei Encounter [facility] Date(s): 08/02/22 - 09/02/22 [facility] [address] [place] [address]- Attending Physician: Theresa Beltran MD Allergies, Adverse [...] pneumococcal 23-valent vaccine 07/13/09 Given 1Result Comment: [facility]: [id number] Bivalent Booster 2Result Comment: [facility]: [id number] 3Result Comment: [facility]: [id number] 4Result Comment: [05/01/2018] [facility]# [id number] 5Result Comment: [05/23/2017] [facility] [id number] Medications calcium carbonate 600 mg oral tablet 2 tablet = 1,200 mg, By Mouth, Daily, 0 Refills, Maintenance, 10/01/17 10:10:25 EDT Start Date: 10/01/17 Status: Ordered Claritin 10 mg oral tablet 10 mg, 1, tablet, By Mouth, Daily, # 90 tablet, Refills 1, Tot. Refills 1, Maintenance, 06/23/20 8:51:00 EST, Route to Pharmacy Electronically, [facility]/pharmacy #[id number], 167, cm, 05/05/20 10:33:00 EST, Height, 78.3, kg, 01/02/20 10:47:00 EDT, Dry Weight Start Date: 06/23/20 Status: Ordered cyclobenzaprine 10 mg oral tablet 10 mg, 1, tablet, By Mouth, 3 times a day, PRN, # 30 tablet, Refills 1, Tot. Refills 1, Maintenance, for spasm, 08/21/22 18:00:00 EST, Route to Pharmacy Electronically, [facility]/pharmacy #1893, Partial fill upon patient request if the prescription is for a... Start Date: 08/21/22 Status: Ordered Doculase 100 mg oral capsule 1 capsule = 100 mg, By Mouth, 2 times a day, PRN constipation, SOFT GELS. Take with water. Stop taking if loose stools/diarrhea., # 60 capsule, 1 Refills, Soft Stop, 09/28/20 8:49:00 EDT, Capsule, [facility]/pharmacy #1893, 167, cm, 09/09/20 11:32:00 EST, He... Start Date: 07/28/09 Stop Date: 09/23/21 Status: Ordered docusate sodium 100 mg oral capsule 1 capsule = 100 mg, By Mouth, 2 times a day, PRN for constipation, SOFT GELS. Take with water. Stoptaking if loose stools/diarrhea., # 60 capsule, 5 Refills, Maintenance, 07/19/22 15:25:00 EST, Capsule, [facility]/pharmacy #1893, Partial fill upon patient r... Start Date: 07/19/22 Status: Ordered Flonase 50 mcg/inh nasal spray 2 sprays, Nares, Both, Daily, in each nostril, # 16 Gm, 5 Refills, Maintenance, 01/20/22 10:37:00 EDT, [facility]/pharmacy #1893, 2 sprays Nares, Both Daily,x30 [...] 18:00:00 EST, Route to Pharmacy Electronically, [facility]/pharmacy #1893, Partial fill upon patient request if the prescription i... Start Date: 08/21/22 Status: Ordered lactulose 10 gm/15 ml oral syrup 15 mL, By Mouth, 2 times a day, PRN NEEDED FOR CONSTIPATION, # 900 mL, 0 Refills, [facility] STORE [facility]013, 30, TAKE 15 ML BY MOUTH 2 [...] 0 Refills, Soft Stop, 08/11/22 19:18:00 EST, [facility]/pharmacy #1893, 168, cm, 08/04/22 11:16:00 EST, Height, [...] Care Physician Member Role: PCP Address: Address: [address] [place] [id number] Name: Margie Fink NP Position: Reference Physician Member Role: Primary Care Nurse Address: Address: [address] [place] [address] [address] Clinical & [place] [address]- Care Team Related Persons Name: ECTOR MORFIN Name: CHLOE MORFIN Address: [address] [address]
--- OUTSIDE RECORDS SUMMARY | 2023-11-01 15:18 | XMS_ITS | Continuity of Care Document ---
Author Organization [facility] Address [address] [place] [address]- Care Team Providers Care Senior Cobol Developer Name Role Phone Devin NAYAK, Theresa Velásquez Primary Care Physic osei Encounter [facility] Date(s): 01/23/22 - 01/30/22 [facility] [address] [place] [address]- Encounter Diagnosis Ganglion of left wrist(Discharge Diagnosis) - 01/23/22 Dry scalp(Discharge Diagnosis) - 01/23/22 Attending Physician: Debra Quick NP Allergies, Adverse Reactions, Alerts Substance Reaction Severity [...] 23-valent vaccine 07/13/09 Given 1Result Comment: [facility]: [address]-76 2Result Comment: [05/01/2018] [facility]# 95744-098-11 3Result Comment: [05/23/2017] [facility] 64273-762-58 Medications aspirin 81 mg oral delayed release tablet 81 mg, 1, tablet, By Mouth, Daily, # 30 tablet, Refills 1, Tot. Refills 1, Maintenance, 12/02/21 15:56:00 EDT, Route to Pharmacy Electronically, [facility]/pharmacy #[id number], Partial fill upon patient request if the prescription is for a schedule II opioid drug... Start Date: 12/02/21 Stop Date: 01/31/22 Status: Ordered atorvastatin 40 mg oral tablet 1 tablet = 40 mg, By Mouth, Daily, # 90 tablet, 0 Refills, Maintenance, 11/25/21 17:35:00 EDT, Tablet, [facility]/pharmacy #[id number], Partial fill upon [...] 06/23/20 8:51:00 EST, Route to Pharmacy Electronically, [facility]/pharmacy #[id number], 167, cm, 05/05/20 10:33:00 EST, Height, 78.3, kg, 01/02/20 10:47:00 EDT, Dry Weight Start Date: 06/23/20 Status: Ordered diclofenac sodium 75 mg oral delayed release tablet 1 tablet = 75 mg, By Mouth, Daily, # 30 tablet, 1 Refills, Maintenance, 05/23/21 17:56:00 EST, EC Tablet, [facility]/pharmacy #[id number], 167, cm, 03/17/21 8:09:00 EDT, Height, 78.3, kg, 01/02/20 10:47:00 EDT, Dry Weight Start Date: 05/23/21 Status: Ordered Doculase 100 mg oral capsule 1 capsule = 100 mg, By Mouth, 2 times a day, PRN constipation, SOFT GELS. Take with water. Stop taking if loose stools/diarrhea., # 60 capsule, 1 Refills, Soft Stop, 09/28/20 8:49:00 EDT, Capsule, [facility]/pharmacy #[id number], 167, cm, 09/09/20 11:32:00 EST, He... Start Date: 07/28/09 Stop Date: 09/23/21 Status: Ordered docusate sodium 100 mg oral capsule 1 capsule = 100 mg, By Mouth, 2 times a day, PRN for constipation, SOFT GELS. Take with water. Stoptaking if loose stools/diarrhea., # 60 capsule, 5 Refills, Maintenance, 12/07/21 10:34:00 EDT, Capsule, [facility]/pharmacy #[id number], Partial fill upon [...] FOR CONSTIPATION, # 900 mL, 0 Refills, [facility] STORE [id number], 30, TAKE 15 ML BY MOUTH 2 [...] 0 Refills, Soft Stop, 12/30/21 13:55:00 EDT, [facility]/pharmacy #[id number], 168, cm, 12/06/21 [...] Refills, Maintenance, 03/21/21 13:47:00 EDT, Capsule, [id number], Partial fill upon patient request if the [...] Dates Health Status Cl inical Service Informant Ganglion of left wrist Discharge Diagnosis 01/23/22 Dry scalp Discharge Diagnosis 01/23/22 Vital Signs Most recent to oldest [Reference Range]: 1 Height 168 cm (01/23/22 2:29 PM) Weight 70.6 kg (01/23/22 2:29 PM) Oxygen Saturation [94-100 %] 98 % (01/23/22 2:29 PM) Pulse Rate [55-90 bpm] 65 bpm (01/23/22 2:29 PM) Body Mass Index [18.5-24.99] 25.01 *H* (01/23/22 2:29 PM) Blood Pressure [90-138/55-84 mm Hg] 119/ 81mm Hg (01/23/22 2:29 PM) Blood pressure sites Arm, right (01/23/22 2:29 PM) Weight Obtained Via Standing scale (01/23/22 2:29 PM) Social History Social History Type Response Smoking Status Former smoker; Tobac co user in household: No; Type: Cigarettes; Other: 30 years, half a pack to less, quit 9 years ago; entered on: 10/01/17 Sex
--- OUTSIDE RECORDS SUMMARY | 2023-11-01 15:18 | XMS_ITS | Continuity of Care Document ---
Author Organization [facility] Address [address] [place] [address]- Care Team Providers Care Pigment Weigher Name Role Phone Devin NAYAK, Theresa Velásquez Primary Care Physic osei Encounter [facility] Date(s): 02/20/23 - 03/22/23 [facility] [address] [place] [address]- Allergies, Adverse Reactions, Alerts Substance Reaction Severity [...] pneumococcal 23-valent vaccine 07/13/09 Given 1Result Comment: [facility]: 31045-276-86 Bivalent Booster 2Result Comment: [facility]: [address]-58 3Result Comment: [facility]: 29774-503-45 4Result Comment: [05/01/2018] [facility]# 69022-591-27 5Result Comment: [05/23/2017] [facility] 15114-368-28 Medications calcium carbonate 600 mg oral tablet 2 tablet = 1,200 mg, By Mouth, Daily, 0 Refills, Maintenance, 10/01/17 10:10:25 EDT Start Date: 10/01/17 Status: Ordered Claritin 10 mg oral tablet 10 mg, 1, tablet, By Mouth, Daily, # 90 tablet, Refills 1, Tot. Refills 1, Maintenance, 06/23/20 8:51:00 EST, Route to Pharmacy Electronically, [facility]/pharmacy #[id number], 167, cm, 05/05/20 10:33:00 EST, Height, 78.3, kg, 01/02/20 10:47:00 EDT, Dry Weight Start Date: 06/23/20 Status: Ordered cyclobenzaprine 10 mg oral tablet 10 mg, 1, tablet, By Mouth, 3 times a day, PRN, # 30 tablet, Refills 1, Tot. Refills 1, Maintenance, for spasm, 02/21/23 8:21:00 EDT, Route to Pharmacy Electronically, [facility]/pharmacy #[id number], Partial fill upon patient request if the prescription is for a... Start Date: 02/21/23 Status: Ordered Doculase 100 mg oral capsule 1 capsule = 100 mg, By Mouth, 2 times a day, PRN constipation, SOFT GELS. Take with water. Stop taking if loose stools/diarrhea., # 60 capsule, 1 Refills, Soft Stop, 09/28/20 8:49:00 EDT, Capsule, [facility]/pharmacy #[id number], 167, cm, 09/09/20 11:32:00 EST, He... Start Date: 07/28/09 Stop Date: 09/23/21 Status: Ordered docusate sodium 100 mg oral capsule 1 capsule = 100 mg, By Mouth, 2 times a day, PRN for constipation, SOFT GELS. Take with water. Stoptaking if loose stools/diarrhea., # 60 capsule, 5 Refills, Maintenance, 03/06/23 11:48:00 EDT, Capsule, [facility]/pharmacy #[id number], Partial fill upon patient r... Start Date: 03/06/23 Status: Ordered fluticasone 50 mcg/inh nasal spray 2 sprays, Nares, Both, 2 times a day, # 16 Gm, 3 Refills, Maintenance, 10/20/22 9:23:00 EDT, Felt,[facility]/pharmacy #[id number], Partial fill upon patient request [...] 11/15/22 8:47:00 EDT, Route to Pharmacy Electronically, [facility]/pharmacy #[id number], Partial fill upon patient request if the prescription is... Start Date: 11/15/22 Status: Ordered ibuprofen 600 mg oral tablet 600 mg, 1, tablet, By Mouth, 3 times a day, PRN, # 30 tablet, Refills 1, Tot. Refills 1, Maintenance, Pain , Moderate, 02/21/23 8:21:00 EDT, Route to Pharmacy Electronically, [facility]/pharmacy #[id number], Partial fill upon patient request if the prescription is... Start Date: 02/21/23 Status: Ordered lactulose 10 gm/15 ml oral syrup 15 mL, By Mouth, 2 times a day, PRN NEEDED FOR CONSTIPATION, # 900 mL, 0 Refills, [facility] STORE 11557, 30, TAKE 15 ML BY MOUTH 2 TIMES A DAY, NEEDED FOR CONSTIPATION, 167, cm, 07/14/21 8:11:00 EST,Height, 78.3, kg, 07/03/20 10:47:00 EDT, Dry Weight Start Date: 09/16/21 Status: Ordered loratadine 10 mg oral tablet 10 mg, 1, tablet, By Mouth, Daily, # 90 tablet, Refills 1, Tot. Refills 1, Maintenance, 10/20/22 9:15:00 EDT, Route to Pharmacy Electronically, [facility]/pharmacy #[id number], Partial fill upon patient request [...] # 180 capsule, 0 Refills, Soft Stop, 03/06/23 11:48:00 EDT, [id number], 168, cm, 01/17/23 10:21:00 EDT, Height, 73.2, kg, 03/28/22 9:43:00 EDT, DryWeight Start Date: 03/06/23 Stop Date: 06/04/23 Status: Ordered Seroquel 800 mg, By Mouth, Daily at bedtime, Refills 0, Maintenance, 05/01/18 10:26:02 EDT Start Date: 05/01/18 Status: Ordered simethicone 125 mg oral capsule 1 capsule = 125 mg, By Mouth, 3 times a day, # 42 capsule, 0 Refills, Maintenance, 01/26/23 17:56:00 EDT, Capsule, [id number], Partial fill upon [...] Personnel Name: Devin NAYAK, Theresa Velásquez Position: [facility] Physician - Primary Care Member Role: PCP Address: Address: [address] [place] [id number]- Name: Margie Fink NP Position: Reference Physician Member Role: Primary Care Nurse Address: Address: [address] [place] [address] [address] [facility] [place] [address]- Care Team Related Persons Name: ECTOR MORFIN Name: CHLOE MORFIN Address: home [address] [place] [id number]
--- OUTSIDE RECORDS SUMMARY | 2023-11-01 15:18 | XMS_ITS | Continuity of Care Document ---
Author Organization [facility] Address [address] [place] [address]- Care Team Providers Care Window/Distribution Clerk Name Role Phone Devin NAYAK, Theresa Velásquez Primary Care Physic osei Encounter [facility] Date(s): 01/02/20 - 01/09/20 [facility] [address] [place] [address]- [facility] Attending Physician: Alessia Arias MD Referring Physician: Devin NAYAK, Theresa Velásquez Allergies, Adverse [...] vaccine 07/13/09 Given 1Result Comment: [05/01/2018] [facility]# [id number] 2Result Comment: [05/23/2017] [facility] 01600-263-81 Medications Biotin By Mouth, Daily, 0 Refills, Maintenance, 01/01/20 15:41:00 EDT Start Date: 01/01/20 Status: Ordered calcium carbonate 600 mg oral tablet 2 tablet = 1,200 mg, By Mouth, Daily, 0 Refills, Maintenance, 10/01/17 10:10:25 EDT Start Date: 4/2/18 Status: Ordered Claritin 10 mg oral tablet 10 mg, 1, tablet, By Mouth, Daily, # 30 tablet, Refills 5, Tot. Refills 5, Maintenance, 02/06/19 14:33:11 EDT, Route to Pharmacy Electronically, [id number], [facility]/pharmacy #[id number] Start Date: 02/06/19 Status: Ordered Claritin 10 mg oral tablet 10 mg, 1, tablet, By Mouth, Daily, # 30 tablet, Refills 5, Tot. Refills 5, Maintenance, 10/02/19 11:18:00 EDT, Route to Pharmacy Electronically, [facility]/pharmacy #[id number], 167, cm, 02/20/19 13:00:00 EDT, Height, 72.7, kg, 02/20/19 13:00:00 EDT, Dry Weight Start Date: 10/02/19 Status: Ordered diclofenac sodium 75 mg oral delayed release tablet 1 tablet = 75 mg, By Mouth, Daily, # 30 tablet, 0 Refills, Maintenance, 08/03/19 9:32:00 EST, EC Tablet, [facility]/pharmacy #[id number], 167, cm, 02/20/19 13:00:00 EDT, Height, 72.7, kg, 02/20/19 13:00:00 EDT, Dry Weight Start Date: 08/03/19 Status: Ordered Diflucan 150 mg oral tablet 1 tablet = 150 mg, By Mouth, Once, # 1 tablet, 0 Refills, Soft Stop, 01/08/20 14:33:00 EDT, Tablet,[facility]/pharmacy #[id number], 167, cm, 01/02/20 10:47:00 EDT, Height, 78.3, kg, 01/02/20 10:47:00 EDT, Dry Weight Start Date: 01/08/20 Status: Ordered Doculase 100 mg oral capsule 1 capsule = 100 mg, By Mouth, 2 times a day, PRN constipation, SOFT GELS. Take with water. Stop taking if loose stools/diarrhea., # 60 capsule, 11 Refills, Soft Stop, 08/19/19 9:43:00 EST, Capsule, [facility]/pharmacy #[id number], 167, cm, 02/20/19 13:00:00 EDT, [...] ML BY MOUTH 2 TIMES A DAY, [facility]/pharmacy #[id number] Start Date: 05/01/19 Status: Ordered [...] 0 Refills, Soft Stop, 12/03/19 12:28:00 EDT, [facility]/pharmacy #[id number], 167, cm, 02/20/19 13:00:00 EDT, Height, [...] oldest [Reference Range]: 1 Height 167 cm (01/02/20 10:47 AM) Oxygen Saturation [94-100 %] 100 % (01/02/20 10:47 AM) Pulse Rate [55-90 bpm] 79 bpm (01/02/20 10:47 AM) Blood Pressure [90-138/55-84 mm Hg] 128/ 91mm Hg (01/02/20 10:47 AM) Respiratory Rate [16-30 br/min] 20 br/mi n (01/02/20 10:47 AM) Temperature [96.8-100.4 DegF] 97.8 DegF (01/02/20 10:47 AM) Mode of Delivery (Oxygen) Room air (01/02/20 10:47 AM) Blood pressure sites Arm, left (01/02/20 10:47 AM) Temperature Route Temporal (01/02/20 10:47 AM) Dry Weight 78.3 kg (01/02/20 10:47 AM) Weight Obtained Via Standing scale (01/02/20 10:47 AM) Social History Social History Type Response Smoking Status Former smoker; Tobac co user in household: No; Type: Cigarettes; Other: 30 years, half a pack to less, quit 9 years ago; entered on: 10/01/17 Sex
--- OUTSIDE RECORDS SUMMARY | 2023-11-01 15:18 | XMS_ITS | Continuity of Care Document ---
Author Organization [facility] Address [address] [place] [address]- Care Team Providers Care Tile Layer Supervisor Name Role Phone Devin NAYAK, Theresa Velásquez Primary Care Physic osei [place] [facility] [place] 12/02[place]21 - 12/09/21 [facility] [address] [place] [address]- Encounter Diagnosis Seborrheic dermatitis(Discharge Diagnosis) - 12/02/21 Deep venous thrombosis(Discharge Diagnosis) - 12/02/21 Attending Physician: Debra Quick NP Allergies, Adverse [...] influenza virus vaccine, inactivated 2 05/01/18 Gi doimnik influenza virus vaccine, inactivated 3 05/23/17 Gi dominik influenza virus vaccine, inactivated 04/11/16 Give n influenza virus vaccine, inactivated 06/17/15 Give n influenza virus vaccine, inactivated 06/19/14 Give n tetanus/diphtheria/pertussis, acel(Tdap) 12/29/15 Given pneumococcal 23-valent vaccine 07/13/09 Given 1Result Comment: [facility]: [address]-19 2Result Comment: [05/01/2018] [facility]# 24038-067-94 3Result Comment: [05/23/2017] [facility] 42296-870-27 Medications aspirin 81 mg oral delayed release tablet 81 mg, 1, tablet, By Mouth, Daily, # 30 tablet, Refills 1, Tot. Refills 1, Maintenance, 12/02/21 15:56:00 EDT, Route to Pharmacy Electronically, [facility]/pharmacy #[id number], Partial fill upon patient request if the prescription is for a schedule II opioid drug... Start Date: 12/02/21 Stop Date: 01/31/22 Status: Ordered atorvastatin 40 mg oral tablet 1 tablet = 40 mg, By Mouth, Daily, # 90 tablet, 0 Refills, Maintenance, 11/25/21 17:35:00 EDT, Tablet, [id number], Partial fill upon [...] 06/23/20 8:51:00 EST, Route to Pharmacy Electronically, [id number], 167, cm, 05/05/20 10:33:00 EST, Height, 78.3, kg, 01/02/20 10:47:00 EDT, Dry Weight Start Date: 06/23/20 Status: Ordered clotrimazole 1% topical cream 1 application, Topically, 2 times a day, for 7 days, # 30 Gm, 1 Refills, Acute 12/16/21 15:56:00 EDT, 12/02/21 15:56:00 EDT, Cream, [id number], Partial fill upon patient request if the prescription is for a schedule II opioid drug., 1 applicat... Start Date: 12/02/21 Stop Date: 12/16/21 Status: Ordered diclofenac sodium 75 mg oral delayed release tablet 1 tablet = 75 mg, By Mouth, Daily, # 30 tablet, 1 Refills, Maintenance, 05/23/21 17:56:00 EST, EC Tablet, [facility]/pharmacy #[id number], 167, cm, 03/17/21 8:09:00 EDT, Height, 78.3, kg, 01/02/20 10:47:00 EDT, Dry Weight Start Date: 05/23/21 Status: Ordered Doculase 100 mg oral capsule 1 capsule = 100 mg, By Mouth, 2 times a day, PRN constipation, SOFT GELS. Take with water. Stop taking if loose stools/diarrhea., # 60 capsule, 1 Refills, Soft Stop, 09/28/20 8:49:00 EDT, Capsule, [facility]/pharmacy #[id number], 167, cm, 09/09/20 11:32:00 EST, He... Start Date: 07/28/09 Stop Date: 09/23/21 Status: Ordered docusate sodium 100 mg oral capsule 1 capsule = 100 mg, By Mouth, 2 times a day, PRN for constipation, SOFT GELS. Take with water. Stoptaking if loose stools/diarrhea., # 60 capsule, 5 Refills, Maintenance, 12/07/21 10:34:00 EDT, Capsule, [facility]/pharmacy #[id number], Partial fill upon patient r... Start Date: 12/07/21 Status: Ordered Eliquis 5 mg oral tablet 1 tablet = 5 mg, By Mouth, 2 times a day, # 60 tablet, 1 Refills, Maintenance, 11/29/21 11:57:00 EDT, Tablet, [facility]/pharmacy #[id number], Partial fill upon [...] FOR CONSTIPATION, # 900 mL, 0 Refills, [facility] STORE 99421, 30, TAKE 15 ML BY MOUTH 2 [...] 0 Refills, Soft Stop, 07/21/21 8:42:00 EST, [facility]/pharmacy #[id number], 167, cm, 07/14/21 8:11:00 EST, Height, [...] Clinical Service Informant Seborrheic dermatitis Discharge Diagnosis 12/02/21 Deep venous thrombosis Discharge Diagnosis 12/02/21 Vital Signs Most recent to oldest [Reference Range]: 1 Height 167 cm (12/02/21 3:30 PM) Weight 68.5 kg (12/02/21 3:30 PM) Oxygen Saturation [94-100 %] 99 % (12/02/21 3:30 PM) Pulse Rate [55-90 bpm] 80 bpm (12/02/21 3:30 PM) Body Mass Index [18.5-24.99] 24.56 (12/02/21 3:30 PM) Blood Pressure [90-138/55-84 mm Hg] 115/ 77mm Hg (12/02/21 3:30 PM) Respiratory Rate [16-30 br/min] 18 br/mi n (12/02/21 3:30 PM) Blood pressure sites Arm, left (12/02/21 3:30 PM) Weight Obtained Via Standing scale (12/02/21 3:30 PM) Social History Social History Type Response Smoking Status Former smoker; Tobac co user in household: No; Type: Cigarettes; Other: 30 years, half a pack to less, quit 9 years ago; entered on: 10/01/17 Sex
--- OUTSIDE RECORDS SUMMARY | 2023-11-01 15:18 | XMS_ITS | Continuity of Care Document ---
Author Organization [facility] Address [address] [place] [address]- Care Team Providers Care Sales Engineering Manager Name Role Phone Devin NAYAK, Theresa Velásquez Primary Care Physic osei [facility] Date[facility]s): 11/11/21 - 12/11/21 [facility] [address] [place], [place] [address] Allergies, Adverse Reactions, Alerts Substance Reaction [...] 23-valent vaccine 07/13/09 Given 1Result Comment: [facility]: [address]-48 2Result Comment: [05/01/2018] [facility]# 01717-764-91 3Result Comment: [05/23/2017] [facility] 45704-168-14 Medications aspirin 81 mg oral delayed release tablet 81 mg, 1, tablet, By Mouth, Daily, # 30 tablet, Refills 1, Tot. Refills 1, Maintenance, 12/02/21 15:56:00 EDT, Route to Pharmacy Electronically, [facility]/pharmacy #[id number], Partial fill upon patient [...] 8:51:00 EST, Route to Pharmacy Electronically, [facility]/pharmacy #[id number], 167, cm, 05/05/20 10:33:00 EST, Height, 78.3, kg, 01/02/20 10:47:00 EDT, Dry Weight Start Date: 06/23/20 Status: Ordered clotrimazole 1% topical cream 1 application, Topically, 2 times a day, for 7 days, # 30 Gm, 1 Refills, Acute 12/16/21 15:56:00 EDT, 12/02/21 15:56:00 EDT, Cream, [facility]/pharmacy #[id number], Partial fill upon patient request if the prescription is for a schedule II opioid drug., 1 applicat... Start Date: 12/02/21 Stop Date: 12/16/21 Status: Ordered diclofenac sodium 75 mg oral delayed release tablet 1 tablet = 75 mg, By Mouth, Daily, # 30 tablet, 1 Refills, Maintenance, 05/23/21 17:56:00 EST, EC Tablet, [facility]/pharmacy #[id number], 167, cm, 03/17/21 8:09:00 EDT, Height, 78.3, kg, 01/02/20 10:47:00 EDT, Dry Weight Start Date: 05/23/21 Status: Ordered Doculase 100 mg oral capsule 1 capsule = 100 mg, By Mouth, 2 times a day, PRN constipation, SOFT GELS. Take with water. Stop taking if loose stools/diarrhea., # 60 capsule, 1 Refills, Soft Stop, 09/28/20 8:49:00 EDT, Capsule, [facility]/pharmacy #[id number], 167, cm, 09/09/20 11:32:00 EST, He... Start Date: 07/28/09 Stop Date: 09/23/21 Status: Ordered docusate sodium 100 mg oral capsule 1 capsule = 100 mg, By Mouth, 2 times a day, PRN for constipation, SOFT GELS. Take with water. Stoptaking if loose stools/diarrhea., # 60 capsule, 5 Refills, Maintenance, 12/07/21 10:34:00 EDT, Capsule, [facility]/pharmacy #[id number], Partial fill upon patient r... Start Date: 12/07/21 Status: Ordered Eliquis 5 mg oral tablet 1 tablet = 5 mg, By Mouth, 2 times a day, # 60 tablet, 1 Refills, Maintenance, 11/29/21 11:57:00 EDT, Tablet, [facility]/pharmacy #[id number], Partial fill upon patient [...] CONSTIPATION, # 900 mL, 0 Refills, [facility] STORE [id number], 30, TAKE 15 ML BY MOUTH 2 [...] 0 Refills, Soft Stop, 07/21/21 8:42:00 EST, [facility]/pharmacy #1893, 167, cm, 07/14/21 8:11:00 [...] Refills, Maintenance, 03/21/21 13:47:00 EDT, Capsule, [id number], Partial fill upon patient request if the [...]
--- OUTSIDE RECORDS SUMMARY | 2023-11-01 15:18 | XMS_ITS | Continuity of Care Document ---
Author Organization [facility] Address [address] [place] [address]- Care Team Providers Care Milieu Coordinator Name Role Phone Devin NAYAK, Theresa Velásquez Primary Care Physic osei [facility] Date[facility]s): 12/07/21 - 01/06/22 [facility] [address] [place], [place] [address] Allergies, Adverse Reactions, Alerts Substance Reaction [...] vaccine 07/13/09 Given 1Result Comment: [facility]: [address]-87 2Result Comment: [05/01/2018] [facility]# 39120-461-85 3Result Comment: [05/23/2017] [facility] 16497-570-01 Medications aspirin 81 mg oral delayed release tablet 81 mg, 1, tablet, By Mouth, Daily, # 30 tablet, Refills 1, Tot. Refills 1, Maintenance, 12/02/21 15:56:00 EDT, Route to Pharmacy Electronically, [facility]/pharmacy #[id number], Partial fill upon patient request if the prescription is for a schedule II opioid drug... Start Date: 12/02/21 Stop Date: 01/31/22 Status: Ordered atorvastatin 40 mg oral tablet 1 tablet = 40 mg, By Mouth, Daily, # 90 tablet, 0 Refills, Maintenance, 11/25/21 17:35:00 EDT, Tablet, [facility]/pharmacy #[id number], Partial fill upon patient request [...] 06/23/20 8:51:00 EST, Route to Pharmacy Electronically, [facility]/pharmacy #[id number], 167, cm, 05/05/20 10:33:00 EST, Height, 78.3, kg, 01/02/20 10:47:00 EDT, Dry Weight Start Date: 06/23/20 Status: Ordered diclofenac sodium 75 mg oral delayed release tablet 1 tablet = 75 mg, By Mouth, Daily, # 30 tablet, 1 Refills, Maintenance, 05/23/21 17:56:00 EST, EC Tablet, [facility]/pharmacy #1893, 167, cm, 03/17/21 8:09:00 EDT, Height, 78.3, kg, 01/02/20 10:47:00 EDT, Dry Weight Start Date: 05/23/21 Status: Ordered Doculase 100 mg oral capsule 1 capsule = 100 mg, By Mouth, 2 times a day, PRN constipation, SOFT GELS. Take with water. Stop taking if loose stools/diarrhea., # 60 capsule, 1 Refills, Soft Stop, 09/28/20 8:49:00 EDT, Capsule, [facility]/pharmacy #1893, 167, cm, 09/09/20 11:32:00 EST, He... Start Date: 07/28/09 Stop Date: 09/23/21 Status: Ordered docusate sodium 100 mg oral capsule 1 capsule = 100 mg, By Mouth, 2 times a day, PRN for constipation, SOFT GELS. Take with water. Stoptaking if loose stools/diarrhea., # 60 capsule, 5 Refills, Maintenance, 12/07/21 10:34:00 EDT, Capsule, [facility]/pharmacy #1893, Partial fill upon patient r... Start Date: 12/07/21 Status: Ordered Eliquis 5 mg oral tablet 1 tablet = 5 mg, By Mouth, 2 times a day, # 60 tablet, 1 Refills, Maintenance, 11/29/21 11:57:00 EDT, Tablet, [facility]/pharmacy #[id number], Partial fill upon patient request [...] FOR CONSTIPATION, # 900 mL, 0 Refills, [facility] ST[id number], 30, TAKE 15 ML BY MOUTH 2 [...] 0 Refills, Soft Stop, 12/30/21 13:55:00 EDT, [facility]/pharmacy #1893, 168, cm, 12/06/21 8:17:00 EDT, [...] 0 Refills, Maintenance, 03/21/21 13:47:00 EDT, Capsule, [facility]/pharmacy #1893, Partial fill upon patient request [...]
--- OUTSIDE RECORDS SUMMARY | 2023-11-01 15:19 | XMS_ITS | Continuity of Care Document ---
Author Organization [facility] ter Address [address] [place] [id number]- Care Team Providers Care Boarding Machine Operator Name Role Phone Devin NAYAK, Theresa October Christen Primary Care Physic osei [facility]counter [facility] Date[facility]): 11/15/21 - 11/15/[address] [address]- Discharge Disposition: A-D/C Home Attending Physician: Arturo Tomlinson MD Admitting Physician: Arturo Tomlinson MD Referring Physician: George Márquez MD Allergies, Adverse Reactions, Alerts Substance Reaction Severity Status penicillins Active Other Environmental Allergy Active levofloxacin pruritus Active Effexor constipation Active Levaquin H/O: penicillin [...] pneumococcal 23-valent vaccine 07/13/09 Given 1Result Comment: [facility]: [id number] 2Result Comment: [05/01/2018] [facility]# [id number] 3Result Comment: [05/23/2017] [facility] [id number] Medications Biotin By Mouth, Daily, 0 Refills, [...] 06/23/20 8:51:00 EST, Route to Pharmacy Electronically, [facility]/pharmacy #[id number], 167, cm, 05/05/20 10:33:00 EST, Height, 78.3, kg, 01/02/20 10:47:00 EDT, Dry Weight Start Date: 06/23/20 Status: Ordered diclofenac sodium 75 mg oral delayed release tablet 1 tablet = 75 mg, By Mouth, Daily, # 30 tablet, 1 Refills, Maintenance, 05/23/21 17:56:00 EST, EC Tablet, [facility]/pharmacy #[id number], 167, cm, 03/17/21 8:09:00 EDT, Height, 78.3, kg, 01/02/20 10:47:00 EDT, Dry Weight Start Date: 05/23/21 Status: Ordered Doculase 100 mg oral capsule 1 capsule = 100 mg, By Mouth, 2 times a day, PRN constipation, SOFT GELS. Take with water. Stop taking if loose stools/diarrhea., # 60 capsule, 1 Refills, Soft Stop, 09/28/20 8:49:00 EDT, Capsule, [facility]/pharmacy #[id number], 167, cm, 09/09/20 11:32:00 EST, He... Start Date: 07/28/09 Stop Date: 09/23/21 Status: Ordered docusate sodium 100 mg oral capsule 1 capsule = 100 mg, By Mouth, 2 times a day, PRN for hard stool, SOFT GELS. Take with water. Stop taking if loose stools/diarrhea., # 20 capsule, 0 Refills, Maintenance, 08/23/21 16:43:00 EST, Capsule, [facility]/pharmacy #[id number], Partial fill upon patient req... Start Date: 08/23/21 Stop Date: 09/22/21 Status: Ordered docusate sodium 100 mg oral capsule See Instructions, TAKE 1 CAPSULE BY MOUTH 2 TIMES A DAY NEEDED FOR HARD STOOLS. TAKE WITH WATER.STOP TAKING IF LOOSE STOOLS/DIARRHEA, # 20 capsule, 0 Refills, 11/11/21 13:03:00 EDT[id number], cm, 11/07/21 9:50:00 EDT, Height, 78.3,... Start Date: 11/11/21 Status: Ordered Flonase 50 mcg/inh nasal spray 2 sprays, Nares, Both, Daily, in each nostril, # 16 Gm, 5 Refills, Maintenance, 10/28/20 12:19:00 EDT, [facility] 2 sprays Nares, Both Daily,x30 days,Instr:in [...] FOR CONSTIPATION, # 900 mL, 0 Refills, [facility], 30, TAKE 15 ML BY MOUTH 2 [...] 0 Refills, Soft Stop, 07/21/21 8:42:00 EST, [id number], 167, cm, 07/14/21 8:11:00 EST, Height, [...]
--- OUTSIDE RECORDS SUMMARY | 2023-11-01 15:19 | XMS_ITS | Continuity of Care Document ---
Author Organization [facility] Address [address] [place] [address]- Care Team Providers Care Population Geneticist Name Role Phone Devin NAYAK, Theresa Velásquez Primary Care Physic osei [facility] Date[facility]s): 08/31/20 - 10/16/20 [facility] [address] [place] [address]- Attending Physician: Theresa Beltran MD Allergies, Adverse Reactions, Alerts Substance Reaction Severity Status levofloxacin pruritus Active Other Environmental Allergy Active penicillins Active [...] 23-valent vaccine 07/13/09 Given 1Result Comment: [05/01/2018] [facility]# [id number] 2Result Comment: [05/23/2017] [facility] [id number] Medications Biotin By Mouth, Daily, 0 Refills, [...] 02/06/19 14:33:11 EDT, Route to Pharmacy Electronically, [id number], [facility]/pharmacy #[id number] Start Date: 02/06/19 Status: Ordered Claritin 10 mg oral tablet 10 mg, 1, tablet, By Mouth, Daily, # 90 tablet, Refills 1, Tot. Refills 1, Maintenance, 06/23/20 8:51:00 EST, [id number], cm, 05/05/20 10:33:00 EST, Height, 78.3, kg, 01/02/20 10:47:00 EDT, Dry Weight Start Date: 06/23/20 Status: Ordered diclofenac sodium 75 mg oral delayed release tablet 1 tablet = 75 mg, By Mouth, Daily, # 30 tablet, 1 Refills, Maintenance, 04/23/20 13:21:00 EDT, EC Tablet, [facility]/pharmacy #[id number], 167, cm, 01/02/20 10:47:00 [...] 1 Refills, Maintenance, 09/28/20 11:55:00 EDT, Capsule, [facility]/pharmacy [...] ML BY MOUTH 2 TIMES A DAY, [facility]/pharmacy #[id number] Start Date: 05/01/19 Status: [...] 0 Refills, Soft Stop, 07/22/20 10:09:00 EST, [facility]/pharmacy #[id number], 167, cm, 05/05/20 10:33:00 [...]
--- OUTSIDE RECORDS SUMMARY | 2023-11-01 15:19 | XMS_ITS | Continuity of Care Document ---
Author Organization [facility] em Address Unknown Care Team Providers Care Appraisal Analyst Name Role Phone Devin NAYAK, Theresa Velásquez Primary Care Physic osei Encounter [facility] Date(s): 10/25/22 - 11/24/22 [facility] Attending Physician: Kellen Andrews Admitting Physician: Kellen Andrews Referring Physician: Kellen Andrews Allergies, Adverse Reactions, Alerts Substance Reaction Severity [...] 07/13/09 Given 1Result Comment: [facility]: [id number] Bivalent Booster 2Result Comment: [facility]: [id number] 3Result Comment: [facility]: [id number] 4Result Comment: [05/01/2018] [facility]# [id number] 5Result Comment: [05/23/2017] [facility] [id number] Medications calcium carbonate 600 mg oral tablet 2 tablet = 1,200 mg, By Mouth, Daily, 0 Refills, Maintenance, 10/01/17 10:10:25 EDT Start Date: 10/01/17 Status: Ordered Claritin 10 mg oral tablet 10 mg, 1, tablet, By Mouth, Daily, # 90 tablet, Refills 1, Tot. Refills 1, Maintenance, 06/23/20 8:51:00 EST, Route to Pharmacy Electronically, [facility]/pharmacy #[id number], 167, cm, 05/05/20 10:33:00 EST, Height, 78.3, kg, 01/02/20 10:47:00 EDT, Dry Weight Start Date: 06/23/20 Status: Ordered cyclobenzaprine 10 mg oral tablet 10 mg, 1, tablet, By Mouth, 3 times a day, PRN, # 30 tablet, Refills 1, Tot. Refills 1, Maintenance, for spasm, 11/22/22 14:00:00 EDT, Route to Pharmacy Electronically, [facility]/pharmacy #[id number], Partial fill upon patient request if the prescription is for a... Start Date: 11/22/22 Status: Ordered Doculase 100 mg oral capsule 1 capsule = 100 mg, By Mouth, 2 times a day, PRN constipation, SOFT GELS. Take with water. Stop taking if loose stools/diarrhea., # 60 capsule, 1 Refills, Soft Stop, 09/28/20 8:49:00 EDT, Capsule, [facility]/pharmacy #[id number], 167, cm, 09/09/20 11:32:00 EST, He... Start Date: 07/28/09 Stop Date: 09/23/21 Status: Ordered docusate sodium 100 mg oral capsule 1 capsule = 100 mg, By Mouth, 2 times a day, PRN for constipation, SOFT GELS. Take with water. Stoptaking if loose stools/diarrhea., # 60 capsule, 5 Refills, Maintenance, 07/19/22 15:25:00 EST, Capsule, [facility]/pharmacy #1893, Partial fill upon patient r... Start Date: 07/19/22 Status: Ordered fluticasone 50 mcg/inh nasal spray 2 sprays, Nares, Both, 2 times a day, # 16 Gm, 3 Refills, Maintenance, 10/20/22 9:23:00 EDT, [place],[facility]/pharmacy #1893, Partial fill upon patient request [...] 11/15/22 8:47:00 EDT, Route to Pharmacy Electronically, [facility]/pharmacy #1893, Partial fill upon patient request if the prescription is... Start Date: 11/15/22 Status: Ordered lactulose 10 gm/15 ml oral syrup 15 mL, By Mouth, 2 times a day, PRN NEEDED FOR CONSTIPATION, # 900 mL, 0 Refills, [facility] STORE 66645, 30, TAKE 15 ML BY MOUTH 2 TIMES A DAY, NEEDED FOR CONSTIPATION, 167, cm, 07/14/21 8:11:00 EST,Height, 78.3, kg, 01/02/20 10:47:00 EDT, Dry Weight Start Date: 09/16/21 Status: Ordered loratadine 10 mg oral tablet 10 mg, 1, tablet, By Mouth, Daily, # 90 tablet, Refills 1, Tot. Refills 1, Maintenance, 10/20/22 9:15:00 EDT, Route to Pharmacy Electronically, [facility]/pharmacy #[id number], Partial fill upon patient request [...] 12/29/22 23:00:00 EDT, 10/20/22 9:26:00 EDT, [place], [facility]/pharmacy #1893, Partial fill upon patientrequest if [...] Personnel Name: Devin NAYAK, Theresa Velásquez Position: [facility] Physician - Primary Care Member Role: PCP Address: Address: [address] [place] [address]- Name: Margie Fink NP Position: Reference Physician Member Role: Primary Care Nurse Address: Address: [address] [place] [address] [address] Clinical & [place] [address]- Care Team Related Persons Name: ECTOR MORFNI Name: CHLOE MORFIN Address: [address] [address]
--- OUTSIDE RECORDS SUMMARY | 2023-11-01 15:19 | XMS_ITS | Continuity of Care Document ---
Author Organization [facility] Address [address] [place] [address]- Care Team Providers Care Normalizer Name Role Phone Devin NAYAK, Theresa Velásquez Primary Care Physic osei Encounter [facility] Date(s): 09/04/23 - 09/11/23 [facility] [address] [place] [address]- [place] Encounter Diagnosis Knee pain, right(Discharge Diagnosis) - 09/04/23 Mixed hyperlipidemia(Discharge Diagnosis) - 09/04/23 Alcoholism in recovery(Discharge Diagnosis) - 09/04/23 Bipolar disorder(Discharge Diagnosis) - 09/04/23 Attending Physician: Devin NAYAK, Theresa Velásquez Allergies, [...] Given 1Result Comment: [facility]: [id number] Bivalent Booster 2Result Comment: [facility]: [id number] 3Result Comment: [facility]: [id number] 4Result Comment: [05/01/2018] [facility]# [id number] 5Result Comment: [05/23/2017] [facility] 14975-455-41 Medications calcium carbonate 600 mg oral tablet 2 tablet = 1,200 mg, By Mouth, Daily, 0 Refills, Maintenance, 10/01/17 10:10:25 EDT Start Date: 10/01/17 Status: Ordered cyclobenzaprine 10 mg oral tablet 10 mg, 1, tablet, By Mouth, 3 times a day, PRN, # 30 tablet, Refills 1, Tot. Refills 1, Maintenance, for spasm, 02/21/23 8:21:00 EDT, Route to Pharmacy Electronically, [facility]/pharmacy #[id number], Partial fill upon patient request if the prescription is for a... Start Date: 02/21/23 Status: Ordered Doculase 100 mg oral capsule 1 capsule = 100 mg, By Mouth, 2 times a day, PRN constipation, SOFT GELS. Take with water. Stop taking if loose stools/diarrhea., # 60 capsule, 1 Refills, Soft Stop, 09/28/20 8:49:00 EDT, Capsule, [facility]/pharmacy #[id number], 167, cm, 09/09/20 11:32:00 EST, He... Start Date: 07/28/09 Stop Date: 09/23/21 Status: Ordered EpiPen 2-Shade 0.3 mg injectable kit = 0.3 mg, Intramuscular, Once, # 1 pack/packet, 1 Refills, Soft Stop, 06/11/23 17:25:00 EST, [facility]/pharmacy #[id number], Partial fill upon patient request if the prescription is for a schedule II opioid drug., 168, cm, 01/17/23 10:21:00 EDT, Height, 73.2, kg,... Start Date: 06/11/23 Status: Ordered eszopiclone 3 mg oral tablet TAKE 1 TABLET BY MOUTH ONCE A DAY AT BEDTIME Start Date: 09/04/23 Status: Ordered fluticasone 50 mcg/inh nasal spray 2 sprays, Nares, Both, Daily, # 16 Gm, 3 Refills, Maintenance, 07/20/23 15:17:00 EST, [place], [facility]/pharmacy #1893, Partial fill upon patient request if [...] 8:47:00 EDT, Route to Pharmacy Electronically, [facility]/pharmacy #1893, Partial fill upon patient request if the prescription is... Start Date: 11/15/22 Status: Ordered lactulose 10 gm/15 ml oral syrup 15 mL, By Mouth, 2 times a day, PRN NEEDED FOR CONSTIPATION, # 900 mL, 0 Refills, [facility], 30, TAKE 15 ML BY MOUTH 2 TIMES A DAY, NEEDED FOR CONSTIPATION, 167, cm, 07/14/21 8:11:00 EST,Height, 78.3, kg, 01/02/20 10:47:00 EDT, Dry Weight Start Date: 09/16/21 Status: Ordered loratadine 10 mg oral tablet 1, tablet, By Mouth, Daily, # 90 tablet, Refills 1, Tot. Refills 1, Maintenance, 04/17/23 21:12:00 EDT, Route to Pharmacy Electronically, [facility]/pharmacy #[id number], 168, cm, 01/17/23 10:21:00 EDT, Height, 73.2, kg, 03/28/22 9:43:00 EDT, Dry Weight Start Date: 04/17/23 Status: Ordered Multivitamin By Mouth, Daily, 0 Refills, Maintenance, 12/19/13 10:45:45 Start Date: 12/19/13 Status: Ordered omeprazole 20 mg oral enteric coated capsule 1 capsule = 20 mg, By Mouth, 2 times a day, for 90 days, # 180 capsule, 0 Refills, Hard Stop 09/27/23 13:02:00 EDT, 06/29/23 13:02:00 EST, [facility]/pharmacy #[id number], 168, cm, 01/17/23 10:21:00 EDT, Height, [...] 0 Refills, Maintenance, 01/26/23 17:56:00 EDT, Capsule, [facility]/pharmacy #1893, Partial fill upon patient request if [...] Effective Dates Health Status Clinical Service Informant Knee pain, right Discharge Diagnosis 09/04/23 Mixed hyperlipidemia Discharge Diagnosis 09/04/23 Alcoholism in recovery Discharge Diagnosis 09/04/23 Bipolar disorder Discharge Diagnosis 09/04/23 Vital Signs Most recent to oldest [Reference Range]: 1 2 Height 166.6 cm (09/04/23 1:03 PM) 166.6 cm (09/04/23 12:55 PM) Weight 69.3 kg (09/04/23 12:55 PM) Oxygen Saturation [94-100 %] 97 % (09/04/23 12:55 PM) Pulse Rate [55-90 bpm] 86 bpm (09/04/23 12:55 PM) Body Mass Index [18.5-24.99 kg/m2] 24.97 kg/m2 (09/04/23 12:55 PM) Blood Pressure [90-138/55-84 mm Hg] 130/ 79mm Hg (09/04/23 1:03 PM) 143/83mm Hg *H* (09/04/23 12:55 PM) Mode of Delivery (Oxygen) Room air (09/04/23 12:55 PM) Blood pressure sites Arm, left (09/04/23 1:03 PM) Arm, left (09/04/23 12:55 PM) Weight Obtained Via Standing scale (09/04/23 12:55 PM) Social History Social History Type Response Smoking Status Former smoker; Tobac co user in household: No; Type: Cigarettes; Other: 30 years, half a pack to less, quit 9 years ago; entered on: 10/01/17 Sex Patient Care team information Care Team Personnel Name: Devin NAYAK, Theresa Velásquez Position: [facility] Physician - Primary Care Member Role: PCP Address: Address: [address] [place] [id number]- Name: Margie Fink NP Position: Reference Physician Member Role: Primary Care Nurse Address: Address: [address] [place] [address] [address] Clinical & [place] [address]- Care Team Related Persons Name: ECTOR MORFIN Name: CHLOE MORFIN Address: home [address] [place] [address]
--- OUTSIDE RECORDS SUMMARY | 2023-11-01 15:19 | XMS_ITS | Continuity of Care Document ---
Author Organization [facility] Address [address] [place] [address]- Care Team Providers Care Director Government Name Role Phone Devin NAYAK, Theresa Velásquez Primary Care Physic osei [facility]): 12[facility]21 - 12/31/21 [facility] [address] [place], [place] [address] Allergies, Adverse Reactions, Alerts Substance [...] 07/13/09 Given 1Result Comment: [facility]: [id number] 2Result Comment: [05/01/2018] [facility]# [id number] 3Result Comment: [05/23/2017] [facility] [id number] Medications aspirin 81 mg oral delayed release [...] Refills, Maintenance, 05/23/21 17:56:00 EST, EC Tablet, [facility]/pharmacy #[id number], 167, cm, 03/17/21 8:09:00 EDT, Height, 78.3, kg, 01/02/20 10:47:00 EDT, Dry Weight Start Date: 05/23/21 Status: Ordered Doculase 100 mg oral capsule 1 capsule = 100 mg, By Mouth, 2 times a day, PRN constipation, SOFT GELS. Take with water. Stop taking if loose stools/diarrhea., # 60 capsule, 1 Refills, Soft Stop, 09/28/20 8:49:00 EDT, Capsule, [facility]/pharmacy #1893, 167, cm, 09/09/20 11:32:00 EST, He... Start Date: 07/28/09 Stop Date: 09/23/21 Status: Ordered docusate sodium 100 mg oral capsule 1 capsule = 100 mg, By Mouth, 2 times a day, PRN for constipation, SOFT GELS. Take with water. Stoptaking if loose stools/diarrhea., # 60 capsule, 5 Refills, Maintenance, 12/07/21 10:34:00 EDT, Capsule, [facility]/pharmacy #1893, Partial fill upon patient r... Start Date: 12/07/21 Status: Ordered Eliquis 5 mg oral tablet 1 tablet = 5 mg, By Mouth, 2 times a day, # 60 tablet, 1 Refills, Maintenance, 11/29/21 11:57:00 EDT, Tablet, [facility]/pharmacy #1893, Partial [...] mL, 0 Refills, [facility]15, 30, TAKE 15 ML BY MOUTH 2 [...] 0 Refills, Soft Stop, 12/30/21 13:55:00 EDT, [facility]/pharmacy #1893, 168, cm, 12/06/21 8:17:00 [...] 0 Refills, Maintenance, 03/21/21 13:47:00 EDT, Capsule, [facility]/pharmacy #1893, Partial fill upon [...]
--- OUTSIDE RECORDS SUMMARY | 2023-11-01 15:19 | XMS_ITS | Continuity of Care Document ---
Author Organization [facility] Address [address] [place] [address]- Care Team Providers Care Uniformer Name Role Phone Devin NAYAK, Theresa Velásquez Primary Care Physic osei [facility] 04[facility] - 05/27/22 [facility] [address] [place] [address]- Attending Physician: Admtr, [id number] Admitting Physician: Admtr, [...] pneumococcal 23-valent vaccine 07/13/09 Given 1Result Comment: [facility]: 71613-990-24 Bivalent Booster 2Result Comment: [facility]: [id number] 3Result Comment: [facility]: [id number] 4Result Comment: [05/01/2018] [facility]# [id number] 5Result Comment: [05/23/2017] [facility] 78691-067-03 Medications aspirin 81 mg oral delayed release tablet 81 mg, 1, tablet, By Mouth, Daily, # 30 tablet, Refills 1, Tot. Refills 1, Maintenance, 12/02/21 15:56:00 EDT, Route to Pharmacy Electronically, [facility]/pharmacy #1893, Partial fill upon patient request if the prescription is for a schedule II opioid drug... Start Date: 12/02/21 Stop Date: 01/31/22 Status: Ordered atorvastatin 40 mg oral tablet 1 tablet = 40 mg, By Mouth, Daily, # 90 tablet, 0 Refills, Maintenance, 11/25/21 17:35:00 EDT, Tablet, [facility]/pharmacy #1893, Partial fill upon [...] 06/23/20 8:51:00 EST, Route to Pharmacy Electronically, [facility]/pharmacy #1893, 167, cm, 05/05/20 10:33:00 EST, Height, 78.3, kg, 01/02/20 10:47:00 EDT, Dry Weight Start Date: 06/23/20 Status: Ordered diclofenac sodium 75 mg oral delayed release tablet 1 tablet = 75 mg, By Mouth, Daily, # 30 tablet, 1 Refills, Maintenance, 05/23/21 17:56:00 EST, EC Tablet, [facility]/pharmacy #1893, 167, cm, 03/17/21 8:09:00 EDT, Height, 78.3, kg, 01/02/20 10:47:00 EDT, Dry Weight Start Date: 05/23/21 Status: Ordered Doculase 100 mg oral capsule 1 capsule = 100 mg, By Mouth, 2 times a day, PRN constipation, SOFT GELS. Take with water. Stop taking if loose stools/diarrhea., # 60 capsule, 1 Refills, Soft Stop, 09/28/20 8:49:00 EDT, Capsule, [facility]/pharmacy #1893, 167, cm, 09/09/20 [...] FOR CONSTIPATION, # 900 mL, 0 Refills, [facility] 550[facility], 30, TAKE 15 ML BY MOUTH 2 [...] 0 Refills, Soft Stop, 04/21/22 10:42:00 EDT, [facility]/pharmacy #1893, 168, cm, 04/17/22 13:06:00 [...] ago; entered on: 10/01/17 Sex Note * Event Display: Non BH Lab Results Authored Date: * Event Display: Cardiology Office Note, Non-BH Authored Date: * Event Display: Laboratory Result Scanned Authored Date: * Event Display: Laboratory Result Scanned Authored Date: * Event Display: IR Special Procedures Authored Date: * Event Display: Radiology Result Scanned Authored Date: * Omar NAYAK , Theresa Figueroa D: REVIEW Event Display: Radiology Result Scanned Authored Date: * Theresa Nelson MD October D: REVIEW Event Display: Radiology Result Scanned Authored Date: * Event Display: MM Mammogram Authored Date: Patient Care team information Care Team Personnel Name: Theresa Beltran MD Position: [facility] Primary Care Physician Member Role: PCP Address: Address: [address] [place] [address]- Name: Margie Fink NP Position: Reference Physician Member Role: Primary Care Nurse Address: Address: [address] [place] [address] [address] Clinical & [place] [address]- Care Team Related Persons Name: ECTOR MORFIN Name: CHLOE MORFIN Address: home [address] [place] [address]
--- OUTSIDE RECORDS SUMMARY | 2023-11-01 15:19 | XMS_ITS | Continuity of Care Document ---
Author Organization [facility] Address [address], [address] [place] [address]- Care Team Providers Care Parachute Cushion Installer Name Role Phone Devin NAYAK, Theresa Velásquez Primary Care Physic osei Encounter 09/10/20 - 09/17/20 [facility] [address], [address] [place] [address]- Attending Physician: Gerda Perez NP Admitting Physician: Gerda Perez NP Referring Physician: Chris WHEELCHAIR DRIVERGerda Allergies, Adverse Reactions, Alerts Substance Reaction Severity [...] 23-valent vaccine 07/13/09 Given 1Result Comment: [05/01/2018] [facility]# [id number] 2Result Comment: [05/23/2017] [facility] [id number] Medications Biotin By Mouth, Daily, 0 Refills, [...] 02/06/19 14:33:11 EDT, Route to Pharmacy Electronically, [id number], [facility]/pharmacy #1893 Start Date: 02/06/19 Status: Ordered Claritin 10 mg oral tablet 10 mg, 1, tablet, By Mouth, Daily, # 90 tablet, Refills 1, Tot. Refills 1, Maintenance, 06/23/20 8:51:00 EST, Route to Pharmacy Electronically, [facility]/pharmacy #1893, 167, cm, 05/05/20 10:33:00 EST, Height, 78.3, kg, 01/02/20 10:47:00 EDT, Dry Weight Start Date: 06/23/20 Status: Ordered diclofenac sodium 75 mg oral delayed release tablet 1 tablet = 75 mg, By Mouth, Daily, # 30 tablet, 1 Refills, Maintenance, 04/23/20 13:21:00 EDT, EC Tablet, [facility]/pharmacy #1893, 167, cm, 01/02/20 10:47:00 EDT, Height, 78.3, kg, 01/02/20 10:47:00 EDT, Dry Weight Start Date: 04/23/20 Status: Ordered Doculase 100 mg oral capsule 1 capsule = 100 mg, By Mouth, 2 times a day, PRN constipation, SOFT GELS. Take with water. Stop taking if loose stools/diarrhea., # 60 capsule, 11 Refills, Soft Stop, 08/19/19 9:43:00 EST, Capsule, [facility]/pharmacy #1893, 167, cm, 02/20/19 13:00:00 EDT, H... [...] ML BY MOUTH 2 TIMES A DAY, [facility]/pharmacy #1893 Start Date: 05/01/19 Status: Ordered melatonin [...] 0 Refills, Soft Stop, 07/22/20 10:09:00 EST, [facility]/pharmacy #1893, 167, cm, 05/05/20 10:33:00 EST, Height, [...]
--- OUTSIDE RECORDS SUMMARY | 2023-11-01 15:19 | XMS_ITS | Continuity of Care Document ---
Author Organization [facility] Address [address] [place] [address]- Care Team Providers Care Gun Fitter Name Role Phone Devin NAYAK, Theresa Velásquez Primary Care Physic osei [facility]21 [facility] [address] [place], [place] [address] Allergies, Adverse Reactions, Alerts Substance Reaction Severity [...] 07/13/09 Given 1Result Comment: [05/01/2018] [facility]# [id number] 2Result Comment: [05/23/2017] [facility] 40786-541-09 Medications Biotin By Mouth, Daily, 0 Refills, [...] 02/06/19 14:33:11 EDT, Route to Pharmacy Electronically, [id number], [facility]/pharmacy #[id number] Start Date: 02/06/19 Status: Ordered Claritin 10 mg oral tablet 10 mg, 1, tablet, By Mouth, Daily, # 90 tablet, Refills 1, Tot. Refills 1, Maintenance, 06/23/20 8:51:00 EST, Route to Pharmacy Electronically, [facility]/pharmacy #[id number], 167, cm, 05/05/20 10:33:00 EST, Height, 78.3, kg, 01/02/20 10:47:00 EDT, Dry Weight Start Date: 06/23/20 Status: Ordered diclofenac sodium 75 mg oral delayed release tablet 1 tablet = 75 mg, By Mouth, Daily, # 30 tablet, 1 Refills, Maintenance, 05/23/21 17:56:00 EST, EC Tablet, [facility]/pharmacy #[id number], 167, cm, 03/17/21 8:09:00 EDT, Height, 78.3, kg, 01/02/20 10:47:00 EDT, Dry Weight Start Date: 05/23/21 Status: Ordered Doculase 100 mg oral capsule 1 capsule = 100 mg, By Mouth, 2 times a day, PRN constipation, SOFT GELS. Take with water. Stop taking if loose stools/diarrhea., # 60 capsule, 1 Refills, Soft Stop, 09/28/20 8:49:00 EDT, Capsule, [facility]/pharmacy #[id number], 167, cm, 09/09/20 11:32:00 EST, He... Start Date: 07/28/09 Stop Date: 09/23/21 Status: Ordered docusate sodium 100 mg oral capsule 1 capsule = 100 mg, By Mouth, 2 times a day, PRN for constipation, SOFT GELS. Take with water. Stoptaking if loose stools/diarrhea., # 60 capsule, 5 Refills, Maintenance, 12/21/20 10:19:00 EDT, Capsule, [facility]/pharmacy #[id number], Partial fill upon patient r... Start Date: 12/21/20 Status: Ordered Fish Oil By Mouth, 0 Refills, Maintenance, 01/01/20 15:41:00 EDT Start Date: 01/01/20 Status: Ordered Flonase 50 mcg/inh nasal spray 2 sprays, Nares, Both, Daily, in each nostril, # 16 Gm, 5 Refills, Maintenance, 10/28/20 12:19:00 EDT, [facility]/pharmacy #[id number], 2 sprays Nares, Both Daily,x30 [...] ML BY MOUTH 2 TIMES A DAY, [facility]/pharmacy #[id number] Start Date: 05/01/19 Status: Ordered [...] 0 Refills, Soft Stop, 03/11/21 18:08:00 EDT, [facility]/pharmacy #[id number], 167, cm, 09/09/20 11:32:00 EST, [...]
--- OUTSIDE RECORDS SUMMARY | 2023-11-01 15:19 | XMS_ITS | Continuity of Care Document ---
Author Organization [facility] Address [address] [place] [address]- Care Team Providers Care Tobacco Packer Name Role Phone Devin NAYAK, Theresa Velásquez Primary Care Physic osei [facility] - [facility]/21 [facility] [address] [place] [address]- Attending Physician: Theresa Beltran MD Allergies, Adverse [...] 07/13/09 Given 1Result Comment: [facility]: [address]-76 2Result Comment: [05/01/2018] [facility]# [id number] 3Result Comment: [05/23/2017] [facility] 18542-986-46 Medications atorvastatin 40 mg oral tablet 1 tablet = 40 mg, By Mouth, Daily, # 90 tablet, 0 Refills, Maintenance, 11/25/21 17:35:00 EDT, Tablet, [facility]/pharmacy #1893, Partial fill upon patient request if [...] EST, Route to Pharmacy Electronically, [facility]/pharmacy #[id number], 167, cm, 05/05/20 10:33:00 EST, Height, 78.3, kg, 01/02/20 10:47:00 EDT, Dry Weight Start Date: 06/23/20 Status: Ordered diclofenac sodium 75 mg oral delayed release tablet 1 tablet = 75 mg, By Mouth, Daily, # 30 tablet, 1 Refills, Maintenance, 05/23/21 17:56:00 EST, EC Tablet, [facility]/pharmacy #[id number], 167, cm, 03/17/21 8:09:00 EDT, Height, 78.3, kg, 01/02/20 10:47:00 EDT, Dry Weight Start Date: 05/23/21 Status: Ordered Doculase 100 mg oral capsule 1 capsule = 100 mg, By Mouth, 2 times a day, PRN constipation, SOFT GELS. Take with water. Stop taking if loose stools/diarrhea., # 60 capsule, 1 Refills, Soft Stop, 09/28/20 8:49:00 EDT, Capsule, [facility]/pharmacy #1893, 167, cm, 09/09/20 11:32:00 EST, He... Start Date: 07/28/09 Stop Date: 09/23/21 Status: Ordered docusate sodium 100 mg oral capsule 1 capsule = 100 mg, By Mouth, 2 times a day, PRN for hard stool, SOFT GELS. Take with water. Stop taking if loose stools/diarrhea., # 20 capsule, 0 Refills, Maintenance, 08/23/21 16:43:00 EST, Capsule, [facility]/pharmacy #1893, Partial fill upon patient req... Start Date: 08/23/21 Stop Date: 09/22/21 Status: Ordered docusate sodium 100 mg oral capsule See Instructions, TAKE 1 CAPSULE BY MOUTH 2 TIMES A DAY NEEDED FOR HARD STOOLS. TAKE WITH WATER.STOP TAKING IF LOOSE STOOLS/DIARRHEA, # 20 capsule, 0 Refills, 11/23/21 19:05:00 EDT, [facility]/pharmacy #[id number], 167, cm, 11/07/21 9:50:00 EDT, Height, 78.3,... Start Date: 11/23/21 Status: Ordered Eliquis 5 mg oral tablet 1 tablet = 5 mg, By Mouth, 2 times a day, # 60 tablet, 1 Refills, Maintenance, 11/29/21 11:57:00 EDT, Tablet, [facility]/pharmacy #1893, Partial fill upon patient request if the prescription is for a schedule II opioid drug., 167, cm, 11/07/21 9:50:00 EDT, H... Start Date: 11/29/21 Status: Ordered Flonase 50 mcg/inh nasal spray 2 sprays, Nares, Both, Daily, in each nostril, # 16 Gm, 5 Refills, Maintenance, 10/28/20 12:19:00 EDT, [facility]/pharmacy #1893, 2 sprays Nares, Both Daily,x30 days,Instr:in [...] # 900 mL, 0 Refills, [facility] STORE 82665, 30, TAKE 15 ML BY MOUTH 2 [...] Refills, Soft Stop, 07/21/21 8:42:00 EST, [facility]/pharmacy #1893, 167, cm, 07/14/21 8:11:00 EST, Height, [...] 0 Refills, Maintenance, 03/21/21 13:47:00 EDT, Capsule, [facility]/pharmacy #1893, Partial fill upon patient request if [...]
--- OUTSIDE RECORDS SUMMARY | 2023-11-01 15:19 | XMS_ITS | Continuity of Care Document ---
Author Organization [facility] Address [address] [place] [address]- Care Team Providers Care Retoucher Photoengraving Name Role Phone Devin NAYAK, Theresa Velásquez Primary Care Physic osei [facility] - 11/15/22 [facility] [address] [place] [address]- Allergies, Adverse Reactions, Alerts Substance Reaction Severity [...] 23-valent vaccine 07/13/09 Given 1Result Comment: [facility]: 86234-491-99 Bivalent Booster 2Result Comment: [facility]: [address]-52 3Result Comment: [facility]: 54780-023-72 4Result Comment: [05/01/2018] [facility]# 14350-220-91 5Result Comment: [05/23/2017] [facility] 45040-818-02 Medications calcium carbonate 600 mg oral tablet 2 tablet = 1,200 mg, By Mouth, Daily, 0 Refills, Maintenance, 10/01/17 10:10:25 EDT Start Date: 10/01/17 Status: Ordered Claritin 10 mg oral tablet 10 mg, 1, tablet, By Mouth, Daily, # 90 tablet, Refills 1, Tot. Refills 1, Maintenance, 06/23/20 8:51:00 EST, Route to Pharmacy Electronically, [facility]/pharmacy #[id number], 167, cm, 05/05/20 10:33:00 EST, Height, 78.3, kg, 01/02/20 10:47:00 EDT, Dry Weight Start Date: 06/23/20 Status: Ordered cyclobenzaprine 10 mg oral tablet 10 mg, 1, tablet, By Mouth, 3 times a day, PRN, # 30 tablet, Refills 1, Tot. Refills 1, Maintenance, for spasm, 10/10/22 16:02:00 EDT, Route to Pharmacy Electronically, [facility]/pharmacy #[id number], Partial fill upon patient request if the prescription is for a... Start Date: 10/10/22 Status: Ordered Doculase 100 mg oral capsule 1 capsule = 100 mg, By Mouth, 2 times a day, PRN constipation, SOFT GELS. Take with water. Stop taking if loose stools/diarrhea., # 60 capsule, 1 Refills, Soft Stop, 09/28/20 8:49:00 EDT, Capsule, [facility]/pharmacy #1893, 167, cm, 09/09/20 11:32:00 EST, He... Start Date: 07/28/09 Stop Date: 09/23/21 Status: Ordered docusate sodium 100 mg oral capsule 1 capsule = 100 mg, By Mouth, 2 times a day, PRN for constipation, SOFT GELS. Take with water. Stoptaking if loose stools/diarrhea., # 60 capsule, 5 Refills, Maintenance, 07/19/22 15:25:00 EST, Capsule, [facility]/pharmacy #1893, Partial fill upon patient r... Start Date: 07/19/22 Status: Ordered fluticasone 50 mcg/inh nasal spray 2 sprays, Nares, Both, 2 times a day, # 16 Gm, 3 Refills, Maintenance, 10/20/22 9:23:00 EDT, Page,[facility]/pharmacy #1893, Partial fill upon patient [...] 11/15/22 8:47:00 EDT, Route to Pharmacy Electronically, [facility]/pharmacy #1893, Partial fill upon patient request if the prescription is... Start Date: 11/15/22 Status: Ordered lactulose 10 gm/15 ml oral syrup 15 mL, By Mouth, 2 times a day, PRN NEEDED FOR CONSTIPATION, # 900 mL, 0 Refills, [facility] STORE 67810, 30, TAKE 15 ML BY MOUTH 2 TIMES A DAY, NEEDED FOR CONSTIPATION, 167, cm, 07/14/21 8:11:00 EST,Height, 78.3, kg, 01/02/20 10:47:00 EDT, Dry Weight Start Date: 09/16/21 Status: Ordered loratadine 10 mg oral tablet 10 mg, 1, tablet, By Mouth, Daily, # 90 tablet, Refills 1, Tot. Refills 1, Maintenance, 10/20/22 9:15:00 EDT, Route to Pharmacy Electronically, [facility]/pharmacy #[id number], Partial fill upon patient [...] 12/29/22 23:00:00 EDT, 10/20/22 9:26:00 EDT, Patch, [facility]/pharmacy #1893, Partial fill upon patientrequest [...] Name: Devin NAYAK, Theresa Velásquez Position: [facility] Primary Care Physician Member Role: PCP Address: Address: [address] [place] [address]- Name: Aleks ALEJANDRE, Margie Position: Reference Physician Member Role: Primary Care Nurse Address: Address: [address] [place] [address] [address] Clinical & [place] [address]- Care Team Related Persons Name: ECTOR MORFIN Name: CHLOE MORFIN Address: home [address] [place] [address]
--- OUTSIDE RECORDS SUMMARY | 2023-11-01 15:19 | XMS_ITS | Continuity of Care Document ---
Author Organization [facility] Address [address] [place] [address]- Care Team Providers Care Color Adviser Name Role Phone Devin NAYAK, Theresa Velásquez Primary Care Physic osei [facility] - 08/22/20 [facility] [address] [place] [address]- Attending Physician: Kellen Andrews Admitting Physician: AdmKellen [...] 1Result Comment: [05/01/2018] [facility]# 26523-467-31 2Result Comment: [05/23/2017] [facility] 45856-575-56 Medications Biotin By Mouth, Daily, 0 Refills, [...] 02/06/19 14:33:11 EDT, Route to Pharmacy Electronically, [id number], [facility]/pharmacy #[id number] Start Date: 02/06/19 Status: Ordered Claritin 10 mg oral tablet 10 mg, 1, tablet, By Mouth, Daily, # 90 tablet, Refills 1, Tot. Refills 1, Maintenance, 06/23/20 8:51:00 EST, [id number], 167, cm, 05/05/20 10:33:00 EST, Height, 78.3, kg, 01/02/20 10:47:00 EDT, Dry Weight Start Date: 06/23/20 Status: Ordered diclofenac sodium 75 mg oral delayed release tablet 1 tablet = 75 mg, By Mouth, Daily, # 30 tablet, 1 Refills, Maintenance, 04/23/20 13:21:00 EDT, EC Tablet, [facility]/pharmacy #1893, 167, cm, 01/02/20 10:47:00 EDT, Height, 78.3, kg, 01/02/20 10:47:00 EDT, Dry Weight Start Date: 04/23/20 Status: Ordered Doculase 100 mg oral capsule 1 capsule = 100 mg, By Mouth, 2 times a day, PRN constipation, SOFT GELS. Take with water. Stop taking if loose stools/diarrhea., # 60 capsule, 11 Refills, Soft Stop, 08/19/19 9:43:00 EST, Capsule, [facility]/pharmacy #1893, 167, cm, 02/20/19 13:00:00 EDT, [...] ML BY MOUTH 2 TIMES A DAY, [facility]/pharmacy #1893 Start Date: 05/01/19 Status: Ordered [...] 0 Refills, Soft Stop, 07/22/20 10:09:00 EST, [facility]/pharmacy #1893, 167, cm, 05/05/20 10:33:00 [...]
--- OUTSIDE RECORDS SUMMARY | 2023-11-01 15:19 | XMS_ITS | Continuity of Care Document ---
Author Organization [facility] Address [address] [place] [address]- Care Team Providers Care Surfacer Name Role Phone Devin NAYAK, Theresa Velásquez Primary Care Physic osei [facility] - 02[facility]01/20 [facility] [address] [place] [address]- [facility] Attending Physician: Kellen Andrews Admitting Physician: AdmKellen [...] 23-valent vaccine 07/13/09 Given 1Result Comment: [05/01/2018] [facility]# [id number] 2Result Comment: [05/23/2017] [facility] 04908-259-37 Medications Biotin By Mouth, Daily, 0 Refills, [...] 02/06/19 14:33:11 EDT, Route to Pharmacy Electronically, [id number], [facility]/pharmacy #[id number] Start Date: 02/06/19 [...] ML BY MOUTH 2 TIMES A DAY, [facility]/pharmacy #[id number] Start Date: 05/01/19 Status: [...] 0 Refills, Soft Stop, 12/03/19 12:28:00 EDT, [facility]/pharmacy #1893, 167, cm, 02/20/19 [...]
--- OUTSIDE RECORDS SUMMARY | 2023-11-01 15:19 | XMS_ITS | Continuity of Care Document ---
Author Organization [facility] Address [address] [place] [address]- Care Team Providers Care Operator Maintainer Name Role Phone Devin NAYAK, Theresa Velásquez Primary Care Physic osei [facility]22 - 05/13/22 [facility] [address] [place] [address]- Allergies, Adverse Reactions, Alerts Substance Reaction Severity [...] 23-valent vaccine 07/13/09 Given 1Result Comment: [facility]: 37078-826-31 Bivalent Booster 2Result Comment: [facility]: [address]-67 3Result Comment: [facility]: 73808-837-88 4Result Comment: [05/01/2018] [facility]# [id number] 5Result Comment: [05/23/2017] [facility] 23219-885-94 Medications aspirin 81 mg oral delayed release tablet 81 mg, 1, tablet, By Mouth, Daily, # 30 tablet, Refills 1, Tot. Refills 1, Maintenance, 12/02/21 15:56:00 EDT, Route to Pharmacy Electronically, [facility]/pharmacy #1893, Partial fill upon patient request if the prescription is for a schedule II opioid drug... Start Date: 12/02/21 Stop Date: 01/31/22 Status: Ordered atorvastatin 40 mg oral tablet 1 tablet = 40 mg, By Mouth, Daily, # 90 tablet, 0 Refills, Maintenance, 11/25/21 17:35:00 EDT, Tablet, [facility]/pharmacy #1893, Partial fill upon patient request [...] 06/23/20 8:51:00 EST, Route to Pharmacy Electronically, [facility]/pharmacy #[id number], 167, cm, 05/05/20 10:33:00 EST, Height, 78.3, kg, 01/02/20 10:47:00 EDT, Dry Weight Start Date: 06/23/20 Status: Ordered diclofenac sodium 75 mg oral delayed release tablet 1 tablet = 75 mg, By Mouth, Daily, # 30 tablet, 1 Refills, Maintenance, 05/23/21 17:56:00 EST, EC Tablet, [facility]/pharmacy #1893, 167, cm, 03/17/21 8:09:00 EDT, Height, 78.3, kg, 01/02/20 10:47:00 EDT, Dry Weight Start Date: 05/23/21 Status: Ordered Doculase 100 mg oral capsule 1 capsule = 100 mg, By Mouth, 2 times a day, PRN constipation, SOFT GELS. Take with water. Stop taking if loose stools/diarrhea., # 60 capsule, 1 Refills, Soft Stop, 09/28/20 8:49:00 EDT, Capsule, [facility]/pharmacy #1893, 167, cm, 09/09/20 11:32:00 EST, He... Start Date: 07/28/09 Stop Date: 09/23/21 Status: Ordered docusate sodium 100 mg oral capsule 1 capsule = 100 mg, By Mouth, 2 times a day, PRN for constipation, SOFT GELS. Take with water. Stoptaking if loose stools/diarrhea., # 60 capsule, 5 Refills, Maintenance, 12/07/21 10:34:00 EDT, Capsule, [facility]/pharmacy #1893, Partial fill upon patient r... Start Date: 12/07/21 Status: Ordered Eliquis 5 mg oral tablet 1 tablet = 5 mg, By Mouth, 2 times a day, # 60 tablet, 1 Refills, Maintenance, 11/29/21 11:57:00 EDT, Tablet, [facility]/pharmacy #1893, Partial fill upon patient request [...] capsule, By Mouth, 3 times a day, bAida Salazar NP (prescriber), Refills 0, Maintenance,02/25/18 16:37:52 EDT Start Date: 02/25/18 Status: Ordered lactulose 10 gm/15 ml oral syrup 15 mL, By Mouth, 2 times a day, PRN NEEDED FOR CONSTIPATION, # 900 mL, 0 Refills, [facility] STORE 63108, 30, TAKE 15 ML BY MOUTH 2 [...] 0 Refills, Soft Stop, 04/21/22 10:42:00 EDT, [facility]/pharmacy #1893, 168, cm, 04/17/22 13:06:00 EDT, Height, 73.2, kg, 03/28/22 9:43:00 EDT, DryWeight Start Date: 10/21/22 Stop Date: 07/20/22 Status: Ordered Seroquel 800 [...] Personnel Name: Devin NAYAK, Theresa Velásquez Position: [facility] Primary Care Physician Member Role: PCP Address: Address: [address] [place] [address]- Name: Margie Fink NP Position: Reference Physician Member Role: Primary Care Nurse Address: Address: [address] [facility] [address] Clinical & [place] [address]- Care Team Related Persons Name: ECTOR MORFIN Name: CHLOE MORFIN Address: home [address] [place] [address]
--- OUTSIDE RECORDS SUMMARY | 2023-11-01 15:19 | XMS_ITS | Continuity of Care Document ---
Author Organization [facility] Address [address] [place] [address]- Care Team Providers Care Director Of Loss Prevention Name Role Phone Devin NAYAK, Theresa Velásquez Primary Care Physic osei [facility] - 05/25/22 [facility] [address] [place] [address]- Allergies, Adverse Reactions, Alerts Substance Reaction Severity Status Lovenox Active Bee Stings Active Other Environmental Allergy Active penicillins Active [...] 23-valent vaccine 07/13/09 Given 1Result Comment: [facility]: 51455-226-10 Bivalent Booster 2Result Comment: [facility]: [address]-89 3Result Comment: [facility]: 20880-492-09 4Result Comment: [05/01/2018] [facility]# 45729-024-85 5Result Comment: [05/23/2017] [facility] 61697-786-35 Medications aspirin 81 mg oral delayed release tablet 81 mg, 1, tablet, By Mouth, Daily, # 30 tablet, Refills 1, Tot. Refills 1, Maintenance, 12/02/21 15:56:00 EDT, Route to Pharmacy Electronically, [facility]/pharmacy #1893, Partial fill upon patient request if the prescription is for a schedule II opioid drug... Start Date: 12/02/21 Stop Date: 01/31/22 Status: Ordered atorvastatin 40 mg oral tablet 1 tablet = 40 mg, By Mouth, Daily, # 90 tablet, 0 Refills, Maintenance, 11/25/21 17:35:00 EDT, Tablet, [facility]/pharmacy #1893, Partial fill [...] 06/23/20 8:51:00 EST, Route to Pharmacy Electronically, [facility]/pharmacy #1893, 167, cm, 05/05/20 10:33:00 EST, Height, 78.3, kg, 01/02/20 10:47:00 EDT, Dry Weight Start Date: 06/23/20 Status: Ordered diclofenac sodium 75 mg oral delayed release tablet 1 tablet = 75 mg, By Mouth, Daily, # 30 tablet, 1 Refills, Maintenance, 05/23/21 17:56:00 EST, EC Tablet, [facility]/pharmacy #1893, 167, cm, 03/17/21 8:09:00 EDT, Height, [...] 5 Refills, Maintenance, 12/07/21 10:34:00 EDT, Capsule, [facility]/pharmacy #1893, Partial fill upon patient r... Start Date: 12/07/21 Status: Ordered Eliquis 5 mg oral tablet 1 tablet = 5 mg, By Mouth, 2 times a day, # 60 tablet, 1 Refills, Maintenance, 11/29/21 11:57:00 EDT, Tablet, [facility]/pharmacy #1893, Partial fill [...] 0 Refills, [facility] STORE [address]6023, 30, TAKE 15 ML BY MOUTH 2 [...] 0 Refills, Soft Stop, 04/21/22 10:42:00 EDT, [facility]/pharmacy #1893, 168, cm, 04/17/22 13:06:00 EDT, Height, [...] Personnel Name: Devin NAYAK, Theresa Velásquez Position: [facility] Primary Care Physician Member Role: PCP Address: Address: [address] [place] [address]- Name: Margie Fink NP Position: Reference Physician Member Role: Primary Care Nurse Address: Address: [address] [facility] [address] Clinical & [place] [address]- Care Team Related Persons Name: ECTOR MORFIN Name: CHLOE MORFIN Address: home [address] [place] [address]
--- OUTSIDE RECORDS SUMMARY | 2023-11-01 15:19 | XMS_ITS | Continuity of Care Document ---
Author Organization [facility] Address [address] [place] [address]- Care Team Providers Care Precast Worker Name Role Phone Devin NAYAK, Theresa Velásquez Primary Care Physic osei [facility] 01[facility]23 - 02/24/23 [facility] [address] [place] [address]- Allergies, Adverse Reactions, Alerts Substance Reaction Severity [...] 23-valent vaccine 07/13/09 Given 1Result Comment: [facility]: 82361-569-53 Bivalent Booster 2Result Comment: [facility]: [address]-97 3Result Comment: [facility]: 38185-125-03 4Result Comment: [05/01/2018] [facility]# 69324-723-27 5Result Comment: [05/23/2017] [facility] 13890-159-34 Medications calcium carbonate 600 mg oral tablet 2 tablet = 1,200 mg, By Mouth, Daily, 0 Refills, Maintenance, 10/01/17 10:10:25 EDT Start Date: 10/01/17 Status: Ordered Claritin 10 mg oral tablet 10 mg, 1, tablet, By Mouth, Daily, # 90 tablet, Refills 1, Tot. Refills 1, Maintenance, 06/23/20 8:51:00 EST, Route to Pharmacy Electronically, [facility]/pharmacy #6133, 167, cm, 05/05/20 10:33:00 EST, Height, 78.3, kg, 01/02/20 10:47:00 EDT, Dry Weight Start Date: 06/23/20 Status: Ordered cyclobenzaprine 10 mg oral tablet 10 mg, 1, tablet, By Mouth, 3 times a day, PRN, # 30 tablet, Refills 1, Tot. Refills 1, Maintenance, for spasm, 02/21/23 8:21:00 EDT, [facility], 3 Refills, Maintenance, 10/20/22 9:23:00 EDT, [place],[facility]/pharmacy #1893, Partial fill [...] 02/21/23 8:21:00 EDT, Route to Pharmacy Electronically, [facility]/pharmacy #1893, Partial fill upon patient request if the prescription is... Start Date: 02/21/23 Status: Ordered lactulose 10 gm/15 ml oral syrup 15 mL, By Mouth, 2 times a day, PRN NEEDED FOR CONSTIPATION, # 900 mL, 0 Refills, [facility] STORE [address]33, 30, TAKE 15 ML BY MOUTH 2 [...] 0 Refills, Soft Stop, 11/15/22 15:37:00 EDT, [facility]/pharmacy #[id number], 168, cm, 11/07/22 13:21:00 EDT, Height, [...] Theresa Velásquez Position: [facility] Physician - Primary Care Member Role: PCP Address: Address: [address] [place] [id number]- Name: Margie Fink NP Position: Reference Physician Member Role: Primary Care Nurse Address: Address: [address] [place] [address] [phone] Clinical & [place] [address]- Care Team Related Persons Name: ECTOR MORFIN Name: CHLOE MORFIN Address: home [address] [place] [id number]
--- OUTSIDE RECORDS SUMMARY | 2023-11-01 15:19 | XMS_ITS | Continuity of Care Document ---
Author Organization [facility] Address [address] [place] [address]- Care Team Providers Care Cushion Padder Name Role Phone Devin NAYAK, Theresa Velásquez Primary Care Physic osei [facility] 10[facility]/20 [facility] [address] [place], [place] [address] Allergies, Adverse Reactions, Alerts Substance Reaction Severity [...] 23-valent vaccine 07/13/09 Given 1Result Comment: [05/01/2018] [facility]# [id number] 2Result Comment: [05/23/2017] [facility] [id number] Medications Biotin By Mouth, Daily, 0 Refills, [...] 02/06/19 14:33:11 EDT, Route to Pharmacy Electronically, [id number], [facility]/pharmacy #[id number] Start Date: 02/06/19 Status: [...] Refills, Maintenance, 04/23/20 13:21:00 EDT, EC Tablet, [facility]/pharmacy #[id number], 167, cm, 01/02/20 10:47:00 [...] 1 Refills, Maintenance, 09/28/20 11:55:00 EDT, Capsule, [facility]/pharmacy #1893, [...] ML BY MOUTH 2 TIMES A DAY, [facility]/pharmacy #[id number] Start Date: 05/01/19 Status: [...] 0 Refills, Soft Stop, 07/22/20 10:09:00 EST, [facility]/pharmacy #[id number], 167, [...]
--- OUTSIDE RECORDS SUMMARY | 2023-11-01 15:19 | XMS_ITS | Continuity of Care Document ---
Author Organization [facility] Address [address] [place] [address]- Care Team Providers Care Piano Maker Name Role Phone Devin NAYAK, Theresa Velásquez Primary Care Physic osei [facility]20 - 10/06/20 [facility] [address] [place], [place] [address] Allergies, Adverse Reactions, Alerts Substance [...] 23-valent vaccine 07/13/09 Given 1Result Comment: [05/01/2018] [facility]# [id number] 2Result Comment: [05/23/2017] [facility] [id number] Medications Biotin By Mouth, Daily, 0 Refills, [...] 02/06/19 14:33:11 EDT, Route to Pharmacy Electronically, [id number], [facility]/pharmacy #[id number] Start Date: 02/06/19 Status: Ordered Claritin 10 mg oral tablet 10 mg, 1, tablet, By Mouth, Daily, # 90 tablet, Refills 1, Tot. Refills 1, Maintenance, 06/23/20 8:51:00 EST, [id number], cm, 05/05/20 10:33:00 EST, Height, 78.3, kg, 01/02/20 10:47:00 EDT, Dry Weight Start Date: 06/23/20 Status: Ordered diclofenac sodium 75 mg oral delayed release tablet 1 tablet = 75 mg, By Mouth, Daily, # 30 tablet, 1 Refills, Maintenance, 04/23/20 13:21:00 EDT, EC Tablet, [facility]/pharmacy #[id number], 167, cm, 01/02/20 10:47:00 EDT, Height, 78.3, kg, 01/02/20 10:47:00 EDT, Dry Weight Start Date: 04/23/20 Status: Ordered Doculase 100 mg oral capsule 1 capsule = 100 mg, By Mouth, 2 times a day, PRN constipation, SOFT GELS. Take with water. Stop taking if loose stools/diarrhea., # 60 capsule, 1 Refills, Soft Stop, 09/28/20 8:49:00 EDT, Capsule, [facility]/pharmacy #[id number], 167, cm, 09/09/20 11:32:00 EST, He... Start Date: 07/28/09 Stop Date: 09/23/21 Status: Ordered docusate sodium 100 mg oral capsule 1 capsule = 100 mg, By Mouth, 2 times a day, PRN for constipation, SOFT GELS. Take with water. Stoptaking if loose stools/diarrhea., # 60 capsule, 1 Refills, Maintenance, 09/28/20 11:55:00 EDT, Capsule, [facility]/pharmacy #[id number], Partial fill upon [...] 0 Refills, Soft Stop, 07/22/20 10:09:00 EST, [facility]pharmacy [facility][id number], 167, cm, 05/05/20 10:33:00 EST, [...]
--- OUTSIDE RECORDS SUMMARY | 2023-11-01 15:19 | XMS_ITS | Continuity of Care Document ---
Author Organization [facility] Address [address] [place] [address]- Care Team Providers Care Configuration Engineer Name Role Phone Devin NAYAK, Theresa Velásquez Primary Care Physic osei [place] [facility] [place] 02/16/23 [facility] [address] [place] [address]- Attending Physician: Admtr, [id number] Admitting Physician: Admtr, [id number] Referring Physician: Admtr, [...] 04/11/16 Give n influenza virus vaccine, inactivated 12/17/15 Give n influenza virus vaccine, inactivated 06/19/14 Give n tetanus/diphtheria/pertussis, acel(Tdap) 12/29/15 Given pneumococcal 23-valent vaccine 07/13/09 Given 1Result Comment: [facility]: [id number] Bivalent Booster 2Result Comment: [facility]: [id number] 3Result Comment: [facility]: [id number] 4Result Comment: [05/01/2018] [facility]# [id number] 5Result Comment: [05/23/2017] [facility] [id number] Medications calcium carbonate 600 mg oral tablet 2 tablet = 1,200 mg, By Mouth, Daily, 0 Refills, Maintenance, 10/01/17 10:10:25 EDT Start Date: 10/01/17 Status: Ordered Claritin 10 mg oral tablet 10 mg, 1, tablet, By Mouth, Daily, # 90 tablet, Refills 1, Tot. Refills 1, Maintenance, 06/23/20 8:51:00 EST, Route to Pharmacy Electronically, [facility]/pharmacy #[id number], 167, cm, 05/05/20 10:33:00 EST, Height, 78.3, kg, 01/02/20 10:47:00 EDT, Dry Weight Start Date: 06/23/20 Status: Ordered Doculase 100 mg oral capsule 1 capsule = 100 mg, By Mouth, 2 times a day, PRN constipation, SOFT GELS. Take with water. Stop taking if loose stools/diarrhea., # 60 capsule, 1 Refills, Soft Stop, 09/28/20 8:49:00 EDT, Capsule, [facility]/pharmacy #[id number], 167, cm, 09/09/20 11:32:00 EST, He... Start Date: 07/28/09 Stop Date: 09/23/21 Status: Ordered docusate sodium 100 mg oral capsule 1 capsule = 100 mg, By Mouth, 2 times a day, PRN for constipation, SOFT GELS. Take with water. Stoptaking if loose stools/diarrhea., # 60 capsule, 5 Refills, Maintenance, 07/19/22 15:25:00 EST, Capsule, [facility]/pharmacy #[id number], Partial fill upon patient r... Start Date: 07/19/22 Status: Ordered fluticasone 50 mcg/inh nasal spray 2 sprays, Nares, Both, 2 times a day, # 16 Gm, 3 Refills, Maintenance, 10/20/22 9:23:00 EDT, [place],[facility]/pharmacy #1893, Partial fill upon patient request [...] 11/15/22 8:47:00 EDT, Route to Pharmacy Electronically, [facility]/pharmacy #[id number], Partial fill upon patient request if the prescription is... Start Date: 11/15/22 Status: Ordered lactulose 10 gm/15 ml oral syrup 15 mL, By Mouth, 2 times a day, PRN NEEDED FOR CONSTIPATION, # 900 mL, 0 Refills, [facility] STORE [facility], 30, TAKE 15 ML BY MOUTH 2 TIMES A DAY, NEEDED FOR CONSTIPATION, 167, cm, 07/14/21 8:11:00 EST,Height, 78.3, kg, 01/02/20 10:47:00 EDT, Dry Weight Start Date: 09/16/21 Status: Ordered loratadine 10 mg oral tablet 10 mg, 1, tablet, By Mouth, Daily, # 90 tablet, Refills 1, Tot. Refills 1, Maintenance, 10/20/22 9:15:00 EDT, Route to Pharmacy Electronically, [facility]/pharmacy #[id number], Partial fill upon patient request [...] Team Personnel Name: Theresa Beltran MD Position: S Physician - Primary Care Member Role: PCP Address: Address: [address] [place] [address]- [place] Name: Margie Fink NP Position: Reference Physician Member Role: Primary Care Nurse Address: Address: [address] [place] [address] [address] Clinical [facility] [place] [address]- [place] Care Team Related Persons Name: ECTOR MORFIN Name: CHLOE MORFIN Address: [address] [address]
--- OUTSIDE RECORDS SUMMARY | 2023-11-01 15:19 | XMS_ITS | Continuity of Care Document ---
Author Organization [facility] Address [address] [place] [address]- Care Team Providers Care Wind Farm Electrical Systems Designer Name Role Phone Devin NAYAK, Theresa Velásquez Primary Care Physic osei [facility]): [facility]20 - 09/14/20 [facility] [address] [place] [address]- Encounter Diagnosis RUQ pain(Discharge Diagnosis) - 09/07/20 Attending Physician: Chris VAMP WETTER, Gerda Velásquez Allergies, Adverse Reactions, Alerts Substance Reaction [...] vaccine 07/13/09 Given 1Result Comment: [05/01/2018] [facility]# [id number] 2Result Comment: [05/23/2017] [facility] 58494-861-83 Medications Biotin By Mouth, Daily, 0 Refills, [...] 02/06/19 14:33:11 EDT, Route to Pharmacy Electronically, [id number], [facility]/pharmacy #[id number] Start Date: 02/06/19 Status: Ordered Claritin 10 mg oral tablet 10 mg, 1, tablet, By Mouth, Daily, # 90 tablet, Refills 1, Tot. Refills 1, Maintenance, 06/23/20 8:51:00 EST, [id number] 167, cm, 05/05/20 10:33:00 EST, Height, 78.3, kg, 01/02/20 10:47:00 EDT, Dry Weight Start Date: 06/23/20 Status: Ordered diclofenac sodium 75 mg oral delayed release tablet 1 tablet = 75 mg, By Mouth, Daily, # 30 tablet, 1 Refills, Maintenance, 04/23/20 13:21:00 EDT, EC Tablet, [facility]/pharmacy #[id number], 167, cm, 01/02/20 10:47:00 EDT, Height, 78.3, kg, 01/02/20 10:47:00 EDT, Dry Weight Start Date: 04/23/20 Status: Ordered Doculase 100 mg oral capsule 1 capsule = 100 mg, By Mouth, 2 times a day, PRN constipation, SOFT GELS. Take with water. Stop taking if loose stools/diarrhea., # 60 capsule, 11 Refills, Soft Stop, 08/19/19 9:43:00 EST, Capsule, [facility]/pharmacy #[id number], 167, cm, 02/20/19 13:00:00 [...] ML BY MOUTH 2 TIMES A DAY, [facility]/pharmacy #[id number] Start Date: 05/01/19 Status: [...] 0 Refills, Soft Stop, 07/22/20 10:09:00 EST, [facility]/pharmacy #[id number], 167, cm, 05/05/20 [...] Diagnosis Diagnosis Type Effective Dates Health Status Clini reba Service Informant RUQ pain Discharge Diagnosis 09/07/20 Vital Signs Most recent to oldest [Reference Range]: 1 Height 167 cm (09/07/20 10:53 AM) Weight 73.6 kg (09/07/20 10:53 AM) Oxygen Saturation [94-100 %] 96 % (09/07/20 10:53 AM) Pulse Rate [55-90 bpm] 87 bpm (09/07/20 10:53 AM) Body Mass Index [18.5-24.99] 26.39 *H* (09/07/20 10:53 AM) Blood Pressure [90-138/55-84 mm Hg] 128/ 88mm Hg (09/07/20 10:53 AM) Respiratory Rate [16-30 br/min] 18 br/mi n (09/07/20 10:53 AM) Blood pressure sites Arm, right (09/07/20 10:53 AM) Social History Social History Type Response Smoking Status Former smoker; Tobac co user in household: No; Type: Cigarettes; Other: 30 years, half a pack to less, quit 9 years ago; entered on: 10/01/17 Sex
--- OUTSIDE RECORDS SUMMARY | 2023-11-01 15:19 | XMS_ITS | Continuity of Care Document ---
Author Organization [facility] Address [address] [place] [address]- Care Team Providers Care Bi Data Modeler Name Role Phone Devin NAYAK, Theresa Velásquez Primary Care Physic osei [facility] 09[facility]23 - 10/06/23 [facility] [address] [place], [place] [address] Allergies, Adverse Reactions, Alerts Substance Reaction Severity [...] pneumococcal 23-valent vaccine 07/13/09 Given 1Result Comment: [facility]: [id number] Bivalent Booster 2Result Comment: [facility]: [id number] 3Result Comment: [facility]: [id number] 4Result Comment: [05/01/2018] [facility]# [id number] 5Result Comment: [05/23/2017] [facility] [id number] Medications calcium carbonate 600 mg oral tablet 2 tablet = 1,200 mg, By Mouth, Daily, 0 Refills, Maintenance, 10/01/17 10:10:25 EDT Start Date: 10/01/17 Status: Ordered cyclobenzaprine 10 mg oral tablet 10 mg, 1, tablet, By Mouth, 3 times a day, PRN, # 30 tablet, Refills 1, Tot. Refills 1, Maintenance, for spasm, 02/21/23 8:21:00 EDT, Route to Pharmacy Electronically, [facility]/pharmacy #[id number], Partial fill upon patient request if the prescription is for a... Start Date: 02/21/23 Status: Ordered Doculase 100 mg oral capsule 1 capsule = 100 mg, By Mouth, 2 times a day, PRN constipation, SOFT GELS. Take with water. Stop taking if loose stools/diarrhea., # 180 capsule, 1 Refills, Soft Stop, 09/18/23 11:23:00 EDT, Capsule, [facility]/pharmacy #[id number], 169, cm, 09/14/23 9:14:00 EDT, H... Start Date: 07/28/09 Status: Ordered EpiPen 2-Shade 0.3 mg injectable kit = 0.3 mg, Intramuscular, Once, # 1 pack/packet, 1 Refills, Soft Stop, 06/11/23 17:25:00 EST, [facility]/pharmacy #[id number], Partial fill upon [...] Gm, 3 Refills, Maintenance, 07/20/23 15:17:00 EST, [place], [facility]/pharmacy #1893, Partial fill upon [...] 09/18/23 11:24:00 EDT, Route to Pharmacy Electronically, [facility]/pharmacy #[id number], Partial fill upon patient request if the prescription is for a schedule II o... Start Date: 09/18/23 Status: Ordered lactulose 10 gm/15 ml oral syrup 15 mL, By Mouth, 2 times a day, PRN NEEDED FOR CONSTIPATION, # 900 mL, 0 Refills, [facility], 30, TAKE 15 ML BY MOUTH 2 TIMES A DAY, NEEDED FOR CONSTIPATION, 167, cm, 07/14/21 8:11:00 EST,Height, 78.3, kg, 01/02/20 10:47:00 EDT, Dry Weight Start Date: 09/16/21 Status: Ordered loratadine 10 mg oral tablet 1, tablet, By Mouth, Daily, # 90 tablet, Refills 1, Tot. Refills 1, Maintenance, 04/17/23 21:12:00 EDT, Route to Pharmacy Electronically, [facility]/pharmacy #[id number], 168, cm, 01/17/23 10:21:00 EDT, [...] 0 Refills, Maintenance, 01/26/23 17:56:00 EDT, Capsule, [facility]/pharmacy #1893, Partial fill [...] Primary Care Member Role: PCP Address: Address: [address] [place] [address]- Name: Margie Fink NP Position: Reference Physician Member Role: Primary Care Nurse Address: Address: [address] [place] [address] [address] Clinical & [place] [address]- Care Team Related Persons Name: ECTOR MORFIN Name: CHLOE MORFIN Address: home [address] [place] [address]
--- OUTSIDE RECORDS SUMMARY | 2023-11-01 15:19 | XMS_ITS | Continuity of Care Document ---
Author Organization [facility] Address [address] [place] [address]- Care Team Providers Care Fabrication Department Supervisor Name Role Phone Devin NAYAK, Theresa Velásquez Primary Care Physic osei [facility]s): 01[facility]20 - 01/31/20 [facility] [address] [place] [address]- [facility] Attending Physician: Kellen Andrews Admitting Physician: AdmKellen [...] 23-valent vaccine 07/13/09 Given 1Result Comment: [05/01/2018] [facility]# [id number] 2Result Comment: [05/23/2017] [facility] 35793-072-91 Medications Biotin By Mouth, Daily, 0 Refills, [...] 02/06/19 14:33:11 EDT, Route to Pharmacy Electronically, [id number], [facility]/pharmacy #[id number] Start Date: 02/06/19 Status: Ordered Claritin 10 mg oral tablet 10 mg, 1, tablet, By Mouth, Daily, # 30 tablet, Refills 5, Tot. Refills 5, Maintenance, 10/02/19 11:18:00 EDT, Route to Pharmacy Electronically, [facility]/pharmacy #[id number], 167, cm, 02/20/19 13:00:00 EDT, Height, 72.7, kg, 02/20/19 13:00:00 EDT, Dry Weight Start Date: 10/02/19 Status: Ordered diclofenac sodium 75 mg oral delayed release tablet 1 tablet = 75 mg, By Mouth, Daily, # 30 tablet, 0 Refills, Maintenance, 08/03/19 9:32:00 EST, EC Tablet, [facility]/pharmacy #[id number], 167, cm, 02/20/19 13:00:00 EDT, Height, 72.7, kg, 02/20/19 13:00:00 EDT, Dry Weight Start Date: 08/03/19 Status: Ordered Diflucan 150 mg oral tablet 1 tablet = 150 mg, By Mouth, Once, # 1 tablet, 0 Refills, Soft Stop, 01/08/20 14:33:00 EDT, Tablet,[facility]/pharmacy #1893, 167, cm, 01/02/20 10:47:00 EDT, Height, 78.3, kg, 01/02/20 10:47:00 EDT, Dry Weight Start Date: 01/08/20 Status: Ordered Doculase 100 mg oral capsule 1 capsule = 100 mg, By Mouth, 2 times a day, PRN constipation, SOFT GELS. Take with water. Stop taking if loose stools/diarrhea., # 60 capsule, 11 Refills, Soft Stop, 08/19/19 9:43:00 EST, Capsule, [facility]/pharmacy #1893, 167, cm, 02/20/19 13:00:00 [...] ML BY MOUTH 2 TIMES A DAY, [facility]/pharmacy #[id number] Start Date: 05/01/19 Status: Ordered melatonin 5 [...]
--- OUTSIDE RECORDS SUMMARY | 2023-11-01 15:19 | XMS_ITS | Continuity of Care Document ---
Author Organization [facility] Address [address] [place] [address]- Care Team Providers Care Counter Intelligence Agent Name Role Phone Devin NAYAK, Theresa Velásquez Primary Care Physic osei [facility] - 05/06/20 [facility] [address] [place], [place] [address] Allergies, Adverse Reactions, Alerts [...] vaccine 07/13/09 Given 1Result Comment: [05/01/2018] [facility]# [id number] 2Result Comment: [05/23/2017] [facility] 39800-120-94 Medications Biotin By Mouth, Daily, 0 Refills, [...] 02/06/19 14:33:11 EDT, Route to Pharmacy Electronically, [id number], [facility]/pharmacy #1893 Start Date: 02/06/19 Status: Ordered Claritin 10 mg oral tablet 10 mg, 1, tablet, By Mouth, Daily, # 90 tablet, Refills 0, Tot. Refills 0, Maintenance, 04/06/20 11:46:00 EDT, [id number], cm, 01/02/20 10:47:00 EDT, Height, 78.3, kg, 01/02/20 10:47:00 EDT, Dry Weight Start Date: 04/06/20 Status: Ordered diclofenac sodium 75 mg oral delayed release tablet 1 tablet = 75 mg, By Mouth, Daily, # 30 tablet, 1 Refills, Maintenance, 04/23/20 13:21:00 EDT, EC Tablet, [facility] 167, cm, 01/02/20 10:47:00 EDT, Height, 78.3, kg, 01/02/20 10:47:00 EDT, Dry Weight Start Date: 04/23/20 Status: Ordered Doculase 100 mg oral capsule 1 capsule = 100 mg, By Mouth, 2 times a day, PRN constipation, SOFT GELS. Take with water. Stop taking if loose stools/diarrhea., # 60 capsule, 11 Refills, Soft Stop, 08/19/19 9:43:00 EST, Capsule, [facility]/pharmacy #1893, 167, cm, 02/20/19 13:00:00 EDT, [...] # 180 capsule, 0 Refills, Soft Stop, 04/07/20 11:05:00 EDT, [facility]acy #[facility]93, 167, cm, 01/02/20 10:47:00 EDT, Height, 78.3, kg, 01/02/20 10:47:00 EDT, Dry Weight Start Date: 04/07/20 Stop Date: 07/06/20 Status: Ordered Seroquel 800 mg, By Mouth, Daily at bedtime, Refills 0, Maintenance, 05/01/18 10:26:02 EDT Start Date: 05/01/18 Status: Ordered simethicone 125 mg oral tablet 1 tablet = 125 mg, By Mouth, 3 times a day after meals and bedtime, PRN for gas, for 14 days, # 42 tablet, 0 Refills, Acute 05/07/20 14:05:00 EST, 04/23/20 14:05:00 EDT, Tablet, [id number], 167, cm, 01/02/20 10:47:00 EDT, Height, 78.3, kg, ... Start Date: 04/23/20 Stop Date: 05/07/20 Status: Ordered Vitamin D3 = 1,000 International_Units, [...]
--- OUTSIDE RECORDS SUMMARY | 2023-11-01 15:19 | XMS_ITS | Continuity of Care Document ---
Author Organization [facility] Address [address] [place] [address]- Care Team Providers Care Electrician Radio Name Role Phone Devin NAYAK, Theresa Velásquez Primary Care Physic osei Encounter 05/01/23 - 05/08/23 [facility] [address], [address] [place] [address]- Attending Physician: Theresa Beltran MD Admitting Physician: [...] 1Result Comment: [facility]: 50894-321-63 Bivalent Booster 2Result Comment: [facility]: [address]-52 3Result Comment: [facility]: 90590-193-56 4Result Comment: [05/01/2018] [facility]# 25065-082-84 5Result Comment: [05/23/2017] [facility] 28239-434-80 Medications calcium carbonate 600 mg oral tablet 2 tablet = 1,200 mg, By Mouth, Daily, 0 Refills, Maintenance, 10/01/17 10:10:25 EDT Start Date: 10/01/17 Status: Ordered cyclobenzaprine 10 mg oral tablet 10 mg, 1, tablet, By Mouth, 3 times a day, PRN, # 30 tablet, Refills 1, Tot. Refills 1, Maintenance, for spasm, 02/21/23 8:21:00 EDT, Route to Pharmacy Electronically, [facility]/pharmacy #[id number], Partial fill upon patient request [...] 5 Refills, Maintenance, 03/06/23 11:48:00 EDT, Capsule, [facility]/pharmacy #[id number], Partial fill upon patient r... Start Date: 03/06/23 Status: Ordered fluticasone 50 mcg/inh nasal spray 2 sprays, Nares, Both, 2 times a day, # 16 Gm, 3 Refills, Maintenance, 10/20/22 9:23:00 EDT, [place],[facility]/pharmacy #[id number], Partial fill upon patient request [...] 11/15/22 8:47:00 EDT, [facility] Partial fill upon patient request if the prescription is... Start Date: 11/15/22 Status: Ordered ibuprofen 600 mg oral tablet 600 mg, 1, tablet, By Mouth, 3 times a day, PRN, # 30 tablet, Refills 1, Tot. Refills 1, Maintenance, Pain , Moderate, 02/21/23 8:21:00 EDT, Route to Pharmacy Electronically, [facility]/pharmacy #[id number], Partial fill upon patient request if the prescription is... Start Date: 02/21/23 Status: Ordered lactulose 10 gm/15 ml oral syrup 15 mL, By Mouth, 2 times a day, PRN NEEDED FOR CONSTIPATION, # 900 mL, 0 Refills, [facility] STORE 98410, 30, TAKE 15 ML BY MOUTH 2 TIMES A DAY, NEEDED FOR CONSTIPATION, 167, cm, 07/14/21 8:11:00 EST,Height, 78.3, kg, 01/02/20 10:47:00 EDT, Dry Weight Start Date: 09/16/21 Status: Ordered loratadine 10 mg oral tablet 1, tablet, By Mouth, Daily, # 90 tablet, Refills 1, Tot. Refills 1, Maintenance, 04/17/23 21:12:00 EDT, Route to Pharmacy Electronically, [facility]/pharmacy #[id number], 168, cm, 01/17/23 10:21:00 EDT, [...] 0 Refills, Soft Stop, 03/06/23 11:48:00 EDT, [facility]/pharmacy #[id number], 168, cm, 01/17/23 10:21:00 EDT, [...] 0 Refills, Maintenance, 01/26/23 17:56:00 EDT, Capsule, [facility]/pharmacy #[id number], Partial fill upon patient request [...] Confirmed Active 1On right breast, 9:30 position Results Radiology Reports * Exam Date Time Procedure Performing Provider Status 05/01/23 4:02 PM MM Digital Mammo Screening Gerda Guerra; Didier (Verified) Notes: (MM Digital Mammo Screening) Reason For Exam: Z12.31 ROUTINE SCREENING RESULT: MM Digital Mammo Screening PROCEDURE: MM Digital Mammo Screening INDICATION: Screening for breast cancer. No known palpable abnormalities. Benign right punch biopsyin 2014. COMPARISON: 04/13/2022 and multiple prior studies. TECHNIQUE: Full-field digital CC and MLO 3D tomosynthesis images of both breasts were acquired. Computer-aided detection (CAD) was utilized in the interpretation of this study. DENSITY: The breast tissue contains scattered areas of fibroglandular density. FINDINGS: No suspicious masses, suspicious microcalcifications, or areas of architectural distortion are seen in either breast to suggest malignancy. IMPRESSION: No mammographic evidence of malignancy. RECOMMENDATION: Annual mammographic screening BI-RADS: 1 (Negative) Lay letter mailed to patient WSN: [id number] Ordering Physician: Theresa Beltran Dictated By: Diana Zaarte MD Dictated Date/Time: 05/01/23 5:03 pm Reviewed By: Diana Zarate MD Signed By: Diana Zarate MD Signed Date/Time: 05/01/23 5:03 pm Transcribed By: JUNIOR Entry Level Paralegal Date/Time: 05/01/23 5:01 pm Birads: Social History Social History Type Response Smoking Status Former smoker; Tobac co user in household: No; Type: Cigarettes; Other: 30 years, half a pack to less, quit 9 years ago; entered on: 10/01/17 Sex Patient Care team information Care Team Personnel Name: Theresa Beltran MD Position: S Physician - Primary Care Member Role: PCP Address: [facility] [place] [address]- Name: Margie Fink NP Position: Reference Physician Member Role: Primary Care Nurse Address: Address: [address] [place] [address] [address] Clinical [facility] [place] [address]- Care Team Related Persons Name: ECTOR MORFIN Name: CHLOE MORFIN Address: home [address] [place] [address]
--- OUTSIDE RECORDS SUMMARY | 2023-11-01 15:19 | XMS_ITS | Continuity of Care Document ---
Author Organization [facility] Address [address] [place] [address]- Care Team Providers Care Interior Block Wirer Name Role Phone Devin NAYAK, Theresa Velásquez Primary Care Physic osei [facility] Date[facility]): 01/23[facility]22 - 02/22/22 [facility] [address] [place] [address]- Attending Physician: Admtr, [id number] Admitting Physician: Admtr, [...] 07/13/09 Given 1Result Comment: [facility]: [id number] 2Result Comment: [05/01/2018] [facility]# [id number] 3Result Comment: [05/23/2017] [facility] 64787-392-49 Medications aspirin 81 mg oral delayed release tablet 81 mg, 1, tablet, By Mouth, Daily, # 30 tablet, Refills 1, Tot. Refills 1, Maintenance, 12/02/21 15:56:00 EDT, Route to Pharmacy Electronically, [facility]/pharmacy #[id number], Partial fill upon patient request if the prescription is for a schedule II opioid drug... Start Date: 12/02/21 Stop Date: 01/31/22 Status: Ordered atorvastatin 40 mg oral tablet 1 tablet = 40 mg, By Mouth, Daily, # 90 tablet, 0 Refills, Maintenance, 11/25/21 17:35:00 EDT, Tablet, [facility]/pharmacy #[id number], Partial fill upon patient request [...] 8:51:00 EST, Route to Pharmacy Electronically, [facility]/pharmacy #[id number], 167, cm, 05/05/20 10:33:00 EST, Height, 78.3, kg, 01/02/20 10:47:00 EDT, Dry Weight Start Date: 06/23/20 Status: Ordered diclofenac sodium 75 mg oral delayed release tablet 1 tablet = 75 mg, By Mouth, Daily, # 30 tablet, 1 Refills, Maintenance, 05/23/21 17:56:00 EST, EC Tablet, [facility]/pharmacy #1893, 167, cm, 03/17/21 8:09:00 EDT, Height, 78.3, kg, 01/02/20 10:47:00 EDT, Dry Weight Start Date: 05/23/21 Status: Ordered Doculase 100 mg oral capsule 1 capsule = 100 mg, By Mouth, 2 times a day, PRN constipation, SOFT GELS. Take with water. Stop taking if loose stools/diarrhea., # 60 capsule, 1 Refills, Soft Stop, 09/28/20 8:49:00 EDT, Capsule, [facility]/pharmacy #[id number], 167, cm, 09/09/20 11:32:00 EST, [...] CONSTIPATION, # 900 mL, 0 Refills, [facility] STORE 05668, 30, TAKE 15 ML BY MOUTH 2 [...] 0 Refills, Soft Stop, 12/30/21 13:55:00 EDT, [facility]/pharmacy #[id number], 168, cm, 12/06/21 8:17:00 EDT, [...] Refills, Maintenance, 03/21/21 13:47:00 EDT, Capsule, [facility], Partial fill upon patient request if the [...]
--- OUTSIDE RECORDS SUMMARY | 2023-11-01 15:20 | XMS_ITS | Continuity of Care Document ---
Author Organization [facility] Address [address] [place] [address]- Care Team Providers Care Reel Repairer Name Role Phone Devin NAYAK, Theresa Velásquez Primary Care Physic osei [facility] Date[facility]s): 03/17/21 - 04/16/21 [facility] [address] [place] [address]- Attending Physician: Kellen Andrews Admitting Physician: AdmKellen [...] 23-valent vaccine 07/13/09 Given 1Result Comment: [05/01/2018] [facility]# [id number] 2Result Comment: [05/23/2017] [facility] [id number] Medications Biotin By Mouth, Daily, 0 Refills, [...] 02/06/19 14:33:11 EDT, Route to Pharmacy Electronically, [id number], [facility]/pharmacy #[id number] Start Date: 02/06/19 Status: Ordered Claritin 10 mg oral tablet 10 mg, 1, tablet, By Mouth, Daily, # 90 tablet, Refills 1, Tot. Refills 1, Maintenance, 06/23/20 8:51:00 EST, Route to Pharmacy Electronically, [facility]/pharmacy #1893, 167, cm, 05/05/20 10:33:00 EST, Height, 78.3, kg, 01/02/20 10:47:00 EDT, Dry Weight Start Date: 06/23/20 Status: Ordered diclofenac sodium 75 mg oral delayed release tablet 1 tablet = 75 mg, By Mouth, Daily, # 30 tablet, 1 Refills, Maintenance, 04/23/20 13:21:00 EDT, EC Tablet, [facility]/pharmacy #1893, 167, cm, 01/02/20 10:47:00 EDT, Height, 78.3, kg, 01/02/20 10:47:00 EDT, Dry Weight Start Date: 04/23/20 Status: Ordered Doculase 100 mg oral capsule 1 capsule = 100 mg, By Mouth, 2 times a day, PRN constipation, SOFT GELS. Take with water. Stop taking if loose stools/diarrhea., # 60 capsule, 1 Refills, Soft Stop, 09/28/20 8:49:00 EDT, Capsule, [facility]/pharmacy #1893, 167, cm, 09/09/20 11:32:00 EST, He... Start Date: 07/28/09 Stop Date: 09/23/21 Status: Ordered docusate sodium 100 mg oral capsule 1 capsule = 100 mg, By Mouth, 2 times a day, PRN for constipation, SOFT GELS. Take with water. Stoptaking if loose stools/diarrhea., # 60 capsule, 5 Refills, Maintenance, 12/21/20 10:19:00 EDT, Capsule, [facility]/pharmacy #1893, Partial fill upon patient [...] 0 Refills, Soft Stop, 03/11/21 18:08:00 EDT, [facility], 167, cm, 09/09/20 11:32:00 EST, Height, 78.3, kg, 01/02/20 10:47:00 EDT, Dry Weight Start Date: 03/11/21 Stop Date: 06/09/21 Status: Ordered predniSONE 10 mg oral tablet 1 tablet = 10 mg, By Mouth, Daily, 3 tab x 3 days then 2 tabs x 3 days then 1 tab x 3 days, # 18 tablet, 0 Refills, Maintenance, 03/17/21 8:18:00 EDT, [facility]/pharmacy #1893, Partial fill upon patient [...] 0 Refills, Maintenance, 03/21/21 13:47:00 EDT, Capsule, [facility]/pharmacy #1893, Partial fill upon patient [...]
--- OUTSIDE RECORDS SUMMARY | 2023-11-01 15:20 | XMS_ITS | Continuity of Care Document ---
Author Organization [facility] Address [address] [place] [address]- Care Team Providers Care Director Of Logistics Name Role Phone Devin NAYAK, Theresa Velásquez Primary Care Physic osei Encounter 01/07/20 - 01/14/20 [facility] [address], [address] [place] [address]- [phone] Attending Physician: Theresa Beltran MD Admitting Physician: [...] 23-valent vaccine 07/13/09 Given 1Result Comment: [05/01/2018] [facility]# [id number] 2Result Comment: [05/23/2017] [facility] 93433-118-99 Medications Biotin By Mouth, Daily, 0 Refills, [...] 02/06/19 14:33:11 EDT, Route to Pharmacy Electronically, [id number], [facility]/pharmacy #1893 Start Date: 02/06/19 Status: Ordered Claritin 10 mg oral tablet 10 mg, 1, tablet, By Mouth, Daily, # 30 tablet, Refills 5, Tot. Refills 5, Maintenance, 10/02/19 11:18:00 EDT, Route to Pharmacy Electronically, [facility]/pharmacy #1893, 167, cm, 02/20/19 13:00:00 EDT, Height, 72.7, kg, 02/20/19 13:00:00 EDT, Dry Weight Start Date: 10/02/19 Status: Ordered diclofenac sodium 75 mg oral delayed release tablet 1 tablet = 75 mg, By Mouth, Daily, # 30 tablet, 0 Refills, Maintenance, 08/03/19 9:32:00 EST, EC Tablet, [facility]/pharmacy #1893, 167, cm, 02/20/19 13:00:00 EDT, Height, 72.7, kg, 02/20/19 13:00:00 EDT, Dry Weight Start Date: 08/03/19 Status: Ordered Diflucan 150 mg oral tablet 1 tablet = 150 mg, By Mouth, Once, # 1 tablet, 0 Refills, Soft Stop, 01/08/20 14:33:00 EDT, Tablet,[facility]/pharmacy #1893, 167, cm, 01/02/20 10:47:00 EDT, [...] MOUTH 2 TIMES A DAY, [facility]/pharmacy #0454 Start Date: 05/01/19 Status: Ordered melatonin 5 [...] 0 Refills, Soft Stop, 12/03/19 12:28:00 EDT, [facility]/pharmacy #1893, 167, cm, 02/20/19 13:00:00 [...]
--- OUTSIDE RECORDS SUMMARY | 2023-11-01 15:20 | XMS_ITS | Continuity of Care Document ---
Author Organization [facility] Alex srikanth Address [address] [place] [address] [address] [place] [address]- Care Team Providers Care Print Shop Helper Name Role Phone Devin NAYAK, Theresa Velásquez Primary Care Physic osei [facility]counter [facility] Date(s): 05/02/22 - 06/01/22 [facility] [address] [place] [address]- Attending Physician: Admtr, [id number] Admitting Physician: Admtr, [...] 23-valent vaccine 07/13/09 Given 1Result Comment: [facility]: 08261-864-26 Bivalent Booster 2Result Comment: [facility]: [address]-42 3Result Comment: [facility]: 70541-959-93 4Result Comment: [05/01/2018] [facility]# 82120-555-42 5Result Comment: [05/23/2017] [facility] 67500-977-90 Medications aspirin 81 mg oral delayed release tablet 81 mg, 1, tablet, By Mouth, Daily, # 30 tablet, Refills 1, Tot. Refills 1, Maintenance, 12/02/21 15:56:00 EDT, Route to Pharmacy Electronically, [facility]/pharmacy #[id number], Partial fill upon patient request if the prescription is for a schedule II opioid drug... Start Date: 12/02/21 Stop Date: 01/31/22 Status: Ordered atorvastatin 40 mg oral tablet 1 tablet = 40 mg, By Mouth, Daily, # 90 tablet, 0 Refills, Maintenance, 11/25/21 17:35:00 EDT, Tablet, [facility]/pharmacy #1893, Partial fill upon patient request [...] 06/23/20 8:51:00 EST, Route to Pharmacy Electronically, [facility]/pharmacy #1893, 167, cm, 05/05/20 10:33:00 EST, Height, 78.3, kg, 01/02/20 10:47:00 EDT, Dry Weight Start Date: 06/23/20 Status: Ordered diclofenac sodium 75 mg oral delayed release tablet 1 tablet = 75 mg, By Mouth, Daily, # 30 tablet, 1 Refills, Maintenance, 05/23/21 17:56:00 EST, EC Tablet, [facility]/pharmacy #1893, 167, cm, 03/17/21 8:09:00 EDT, [...] FOR CONSTIPATION, # 900 mL, 0 Refills, [facility] STORE 31668, 30, TAKE 15 ML BY MOUTH 2 [...] 0 Refills, Soft Stop, 04/21/22 10:42:00 EDT, [facility]/pharmacy #1893, 168, cm, 04/17/22 13:06:00 EDT, [...] Physician Member Role: PCP Address: Address: [address] [place] [address]- Name: Margie Fink NP Position: Reference Physician Member Role: Primary Care Nurse Address: Address: [address] [place] [address] [address] Clinical & [place] [address]- Care Team Related Persons Name: ECTOR MORFIN Name: CHLOE MORFIN Address: home [address] [place] [id number]
--- OUTSIDE RECORDS SUMMARY | 2023-11-01 15:20 | XMS_ITS | Continuity of Care Document ---
Author Organization [facility] Address [address] [place] [address]- Care Team Providers Care Precision Layout Worker Name Role Phone Devin NAYAK, Threesa Velásquez Primary Care Physic osei Encounter [facility] Date(s): 07/23/20 - 07/30/20 [facility] [address] [place] [address]- Encounter Diagnosis Acute sinusitis(Discharge Diagnosis) - 07/23/20 Attending Physician: Theresa Beltran MD Allergies, Adverse [...] 23-valent vaccine 07/13/09 Given 1Result Comment: [05/01/2018] [facility]# [id number] 2Result Comment: [05/23/2017] [facility] 84063-035-81 Medications Biotin By Mouth, Daily, 0 Refills, [...] 02/06/19 14:33:11 EDT, Route to Pharmacy Electronically, [id number], [facility]/pharmacy #[id number] Start Date: 02/06/19 Status: Ordered Claritin 10 mg oral tablet 10 mg, 1, tablet, By Mouth, Daily, # 90 tablet, Refills 1, Tot. Refills 1, Maintenance, 06/23/20 8:51:00 EST, [facility], cm, 05/05/20 10:33:00 EST, Height, 78.3, kg, 01/02/20 10:47:00 EDT, Dry Weight Start Date: 06/23/20 Status: Ordered diclofenac sodium 75 mg oral delayed release tablet 1 tablet = 75 mg, By Mouth, Daily, # 30 tablet, 1 Refills, Maintenance, 04/23/20 13:21:00 EDT, EC Tablet, [facility]/pharmacy #1893, 167, cm, 01/02/20 10:47:00 EDT, Height, 78.3, kg, 01/02/20 10:47:00 EDT, Dry Weight Start Date: 04/23/20 Status: Ordered Doculase 100 mg oral capsule 1 capsule = 100 mg, By Mouth, 2 times a day, PRN constipation, SOFT GELS. Take with water. Stop taking if loose stools/diarrhea., # 60 capsule, 11 Refills, Soft Stop, 08/19/19 9:43:00 EST, Capsule, [facility]/pharmacy #1893, 167, cm, 02/20/19 13:00:00 EDT, [...] ML BY MOUTH 2 TIMES A DAY, [facility]/pharmacy #1893 Start Date: 05/01/19 Status: Ordered [...] 0 Refills, Soft Stop, 07/22/20 10:09:00 EST, [facility]/pharmacy #1893, 167, cm, 05/05/20 10:33:00 EST, [...] Dates Health Status Cl inical Service Informant Acute sinusitis Discharge Diagnosis 07/23/20 Vital Signs Most recent to oldest [Reference Range]: 1 Height 167 cm (07/23/20 10:34 AM) Social History Social History Type Response Smoking Status Former smoker; Tobac co user in household: No; Type: Cigarettes; Other: 30 years, half a pack to less, quit 9 years ago; entered on: 10/01/17 Sex
--- OUTSIDE RECORDS SUMMARY | 2023-11-01 15:20 | XMS_ITS | Continuity of Care Document ---
Author Organization [facility] Address [address] [place] [address]- Care Team Providers Care Drop Hammer Mechanic Name Role Phone Devin NAYAK, Theresa Velásquez Primary Care Physic osei [facility] Date(s): 03/01/22 - 03/31/22 [facility] [address] [place] [address]- Allergies, Adverse Reactions, Alerts Substance Reaction Severity [...] influenza virus vaccine, inactivated 2 05/01/18 Gi dominki influenza virus vaccine, inactivated 3 05/23/17 Gi dominik influenza virus vaccine, inactivated 04/11/16 Give n influenza virus vaccine, inactivated 06/17/15 Give n influenza virus vaccine, inactivated 06/19/14 Give n tetanus/diphtheria/pertussis, acel(Tdap) 12/29/15 Given pneumococcal 23-valent vaccine 07/13/09 Given 1Result Comment: [facility]: [id number] 2Result Comment: [05/01/2018] [facility]# 37589-023-73 3Result Comment: [05/23/2017] [facility] 35170-525-03 Medications aspirin 81 mg oral delayed release tablet 81 mg, 1, tablet, By Mouth, Daily, # 30 tablet, Refills 1, Tot. Refills 1, Maintenance, 12/02/21 15:56:00 EDT, Route to Pharmacy Electronically, [facility]/pharmacy #[id number], Partial fill upon patient request if the prescription is for a schedule II opioid drug... Start Date: 12/02/21 Stop Date: 01/31/22 Status: Ordered atorvastatin 40 mg oral tablet 1 tablet = 40 mg, By Mouth, Daily, # 90 tablet, 0 Refills, Maintenance, 11/25/21 17:35:00 EDT, Tablet, [facility]/pharmacy #1893, Partial fill upon patient request [...] 06/23/20 8:51:00 EST, Route to Pharmacy Electronically, [facility]/pharmacy #1893, 167, cm, 05/05/20 10:33:00 EST, Height, 78.3, kg, 01/02/20 10:47:00 EDT, Dry Weight Start Date: 06/23/20 Status: Ordered diclofenac sodium 75 mg oral delayed release tablet 1 tablet = 75 mg, By Mouth, Daily, # 30 tablet, 1 Refills, Maintenance, 05/23/21 17:56:00 EST, EC Tablet, [facility]/pharmacy #1893, 167, cm, 03/17/21 8:09:00 EDT, Height, 78.3, kg, 01/02/20 10:47:00 EDT, Dry Weight Start Date: 05/23/21 Status: Ordered Doculase 100 mg oral capsule 1 capsule = 100 mg, By Mouth, 2 times a day, PRN constipation, SOFT GELS. Take with water. Stop taking if loose stools/diarrhea., # 60 capsule, 1 Refills, Soft Stop, 09/28/20 8:49:00 EDT, Capsule, [facility]/pharmacy #1893, 167, cm, 09/09/20 11:32:00 EST, [...] FOR CONSTIPATION, # 900 mL, 0 Refills, [facility] STORE 92131, 30, TAKE 15 ML BY MOUTH 2 [...] 0 Refills, Soft Stop, 12/30/21 13:55:00 EDT, [facility]/pharmacy #1893, 168, cm, 12/06/21 8:17:00 EDT, [...] Refills, Maintenance, 03/21/21 13:47:00 EDT, Capsule, [facility], Partial fill upon patient request if the [...] Name: Devin NAYAK, Theresa Velásquez Address: Address: [address] [place] [address]
--- OUTSIDE RECORDS SUMMARY | 2023-11-01 15:20 | XMS_ITS | Continuity of Care Document ---
Author Organization [facility] Address [address] [place] [address]- Care Team Providers Care Field Care Coordinator Name Role Phone Devin NAYAK, Theresa Velásquez Primary Care Physic osei [facility] Date(s): 09/15/21 - 10/15/21 [facility] [address] [place], [place] [address] Allergies, Adverse Reactions, Alerts Substance Reaction Severity Status Bee Stings Active Other Environmental Allergy Active levofloxacin pruritus [...] pneumococcal 23-valent vaccine 07/13/09 Given 1Result Comment: [facility]: [address]-10 2Result Comment: [05/01/2018] [facility]# 30728-124-61 3Result Comment: [05/23/2017] [facility] 74874-287-73 Medications Biotin By Mouth, Daily, 0 Refills, [...] Refills, Maintenance, 05/23/21 17:56:00 EST, EC Tablet, [facility]/pharmacy #1893, 167, cm, 03/17/21 [...] 0 Refills, Maintenance, 08/23/21 16:43:00 EST, Capsule, [facility]/pharmacy #1893, Partial fill upon patient req... Start Date: 08/23/21 Stop Date: 09/22/21 Status: Ordered Flonase 50 mcg/inh nasal spray 2 sprays, Nares, Both, Daily, in each nostril, # 16 Gm, 5 Refills, Maintenance, 10/28/20 12:19:00 EDT, [facility]/pharmacy #1893, 2 sprays Nares, Both [...] Refills, [facility] STORE 56460, 30, TAKE 15 ML BY MOUTH 2 [...] 0 Refills, Soft Stop, 07/21/21 8:42:00 EST, [facility]/pharmacy #1893, 167, cm, 07/14/21 8:11:00 EST, Height, [...]
--- OUTSIDE RECORDS SUMMARY | 2023-11-01 15:20 | XMS_ITS | Continuity of Care Document ---
Author Organization [facility] Address [address] [place] [address]- Care Team Providers Care Director Medical Safety Name Role Phone Devin NAYAK, Theresa Velásquez Primary Care Physic osei [facility] - 07/28/23 [facility] [address] [place], [place] [address] Allergies, Adverse Reactions, Alerts Substance Reaction Severity [...] Comment: [facility]: 17764-030-30 Bivalent Booster 2Result Comment: [facility]: [address]-03 3Result Comment: [facility]: 02537-300-19 4Result Comment: [05/01/2018] [facility]# 81806-425-35 5Result Comment: [05/23/2017] [facility] 78998-513-24 Medications calcium carbonate 600 mg oral tablet 2 tablet = 1,200 mg, By Mouth, Daily, 0 Refills, Maintenance, 10/01/17 10:10:25 EDT Start Date: 10/01/17 Status: Ordered cyclobenzaprine 10 mg oral tablet 10 mg, 1, tablet, By Mouth, 3 times a day, PRN, # 30 tablet, Refills 1, Tot. Refills 1, Maintenance, for spasm, 02/21/23 8:21:00 EDT, Route to Pharmacy Electronically, [facility]/pharmacy #[id number], Partial fill upon patient request if the prescription is for a... Start Date: 02/21/23 Status: Ordered Doculase 100 mg oral capsule 1 capsule = 100 mg, By Mouth, 2 times a day, PRN constipation, SOFT GELS. Take with water. Stop taking if loose stools/diarrhea., # 60 capsule, 1 Refills, Soft Stop, 09/28/20 8:49:00 EDT, Capsule, [facility]/pharmacy #[id number], 167, cm, 09/09/20 11:32:00 EST, He... Start Date: 07/28/09 Stop Date: 09/23/21 Status: Ordered docusate sodium 100 mg oral capsule 1 capsule = 100 mg, By Mouth, 2 times a day, PRN for constipation, SOFT GELS. Take with water. Stoptaking if loose stools/diarrhea., # 60 capsule, 5 Refills, Maintenance, 03/06/23 11:48:00 EDT, Capsule, [facility]/pharmacy #[id number], Partial fill upon patient r... Start Date: 03/06/23 Status: Ordered EpiPen 2-Shade 0.3 mg injectable kit = 0.3 mg, Intramuscular, Once, # 1 pack/packet, 1 Refills, Soft Stop, 06/11/23 17:25:00 EST, [facility]/pharmacy #[id number], Partial fill upon patient request if the prescription is for a schedule II opioid drug., 168, cm, 01/17/23 10:21:00 EDT, Height, 73.2, kg,... Start Date: 06/11/23 Status: Ordered fluticasone 50 mcg/inh nasal spray 2 sprays, Nares, Both, Daily, # 16 Gm, 3 Refills, Maintenance, 07/20/23 15:17:00 EST, [place], [facility]/pharmacy #[id number], Partial fill upon patient [...] 11/15/22 8:47:00 EDT, Route to Pharmacy Electronically, [facility]/pharmacy #[id number], Partial fill upon patient request if the prescription is... Start Date: 11/15/22 Status: Ordered ibuprofen 600 mg oral tablet 600 mg, 1, tablet, By Mouth, 3 times a day, PRN, # 30 tablet, Refills 1, Tot. Refills 1, Maintenance, Pain , Moderate, 02/21/23 8:21:00 EDT, Route to Pharmacy Electronically, [facility]/pharmacy #[id number], Partial fill upon patient request if the prescription is... Start Date: 02/21/23 Status: Ordered lactulose 10 gm/15 ml oral syrup 15 mL, By Mouth, 2 times a day, PRN NEEDED FOR CONSTIPATION, # 900 mL, 0 Refills, [facility] STORE [facility], 30, TAKE 15 ML BY MOUTH 2 TIMES A DAY, NEEDED FOR CONSTIPATION, 167, cm, 07/14/21 8:11:00 EST,Height, 78.3, kg, 01/02/20 10:47:00 EDT, Dry Weight Start Date: 09/16/21 Status: Ordered loratadine 10 mg oral tablet 1, tablet, By Mouth, Daily, # 90 tablet, Refills 1, Tot. Refills 1, Maintenance, 04/17/23 21:12:00 EDT, Route to Pharmacy Electronically, [facility]/pharmacy #[id number], 168, cm, 01/17/23 10:21:00 [...] Stop 09/27/23 13:02:00 EDT, 06/29/23 13:02:00 EST, [facility]/pharmacy #[id number], 168, cm, 01/17/23 10:21:00 EDT, Height, 73.2, kg, 03/28/22 9:43:00 EDT, Dry Weight Start Date: 06/29/23 Stop Date: 09/27/23 Status: Ordered omeprazole 20 mg oral enteric coated capsule 1 capsule = 20 mg, By Mouth, 2 times a day, # 180 capsule, 0 Refills, Soft Stop, 09/27/23 13:02:00 EDT, [facility]/pharmacy #[id number], 168, cm, 01/17/23 10:21:00 [...] Refills, Maintenance, 01/26/23 17:56:00 EDT, Capsule, [id number], Partial fill upon patient request if the [...] Primary Care Member Role: PCP Address: Address: [address] [place] [address]- Name: Margie Fink NP Position: Reference Physician Member Role: Primary Care Nurse Address: Address: [address] [place] [address] [address] Clinical & [place] [address]- Care Team Related Persons Name: ECTOR MORFIN Name: CHLOE MORFIN Address: home [address] [place] [address]
--- OUTSIDE RECORDS SUMMARY | 2023-11-01 15:20 | XMS_ITS | Continuity of Care Document ---
Author Organization [facility] Address [address] [place] [address]- Care Team Providers Care Supervisor Shuttle Fitting Name Role Phone Devin NAYAK, Theresa Velásquez Primary Care Physic osei [facility] - 02/07/20 [facility] [address] [place] [address]- [facility] Allergies, Adverse Reactions, Alerts Substance Reaction Severity [...] Given 1Result Comment: [05/01/2018] [facility]# 19735-090-57 2Result Comment: [05/23/2017] [facility] 46916-779-44 Medications Biotin By Mouth, Daily, 0 Refills, [...] 02/06/19 14:33:11 EDT, Route to Pharmacy Electronically, [id number], [facility]/pharmacy #[id number] Start Date: 02/06/19 Status: Ordered Claritin 10 mg oral tablet 10 mg, 1, tablet, By Mouth, Daily, # 30 tablet, Refills 5, Tot. Refills 5, Maintenance, 10/02/19 11:18:00 EDT, Route to Pharmacy Electronically, [facility]/pharmacy #[id number], 167, cm, 02/20/19 13:00:00 EDT, Height, 72.7, kg, 02/20/19 13:00:00 EDT, Dry Weight Start Date: 10/02/19 Status: Ordered diclofenac sodium 75 mg oral delayed release tablet 1 tablet = 75 mg, By Mouth, Daily, # 30 tablet, 0 Refills, Maintenance, 02/06/20 17:30:00 EDT, EC Tablet, [facility]/pharmacy #[id number], 167, cm, 01/02/20 10:47:00 EDT, Height, 78.3, kg, 01/02/20 10:47:00 EDT, Dry Weight Start Date: 02/06/20 Status: Ordered Diflucan 150 mg oral tablet 1 tablet = 150 mg, By Mouth, Once, # 1 tablet, 0 Refills, Soft Stop, 01/08/20 14:33:00 EDT, Tablet,[facility]/pharmacy #[id number], 167, cm, 01/02/20 10:47:00 EDT, Height, 78.3, kg, 01/02/20 10:47:00 EDT, Dry Weight Start Date: 01/08/20 Status: Ordered Doculase 100 mg oral capsule 1 capsule = 100 mg, By Mouth, 2 times a day, PRN constipation, SOFT GELS. Take with water. Stop taking if loose stools/diarrhea., # 60 capsule, 11 Refills, Soft Stop, 08/19/19 9:43:00 EST, Capsule, [facility]/pharmacy #[id number], 167, cm, 02/20/19 13:00:00 EDT, H... Start Date: 07/28/09 Stop Date: 2/12/21 Status: Ordered Fish Oil By Mouth, 0 [...] ML BY MOUTH 2 TIMES A DAY, [facility]/pharmacy #[id number] Start Date: 05/01/19 Status: Ordered [...] 0 Refills, Soft Stop, 12/03/19 12:28:00 EDT, [facility]/pharmacy #[id number], 167, cm, 02/20/19 13:00:00 EDT, [...]
--- OUTSIDE RECORDS SUMMARY | 2023-11-01 15:20 | XMS_ITS | Continuity of Care Document ---
Author Organization [facility] Address [address] [place] [address]- Care Team Providers Care Upholsterer Apprentice Name Role Phone Devin NAYAK, Theresa Velásquez Primary Care Physic osei Encounter 04/05/23 - 05/25/23 [facility] [address], [address] [place] [address]- Attending Physician: Theresa Beltran MD Admitting Physician: [...] Given 1Result Comment: [facility]: 74053-172-78 Bivalent Booster 2Result Comment: [facility]: [address]-22 3Result Comment: [facility]: 92965-402-46 4Result Comment: [05/01/2018] [facility]# 85149-732-76 5Result Comment: [05/23/2017] [facility] 43794-765-82 Medications calcium carbonate 600 mg oral tablet 2 tablet = 1,200 mg, By Mouth, Daily, 0 Refills, Maintenance, 10/01/17 10:10:25 EDT Start Date: 10/01/17 Status: Ordered cyclobenzaprine 10 mg oral tablet 10 mg, 1, tablet, By Mouth, 3 times a day, PRN, # 30 tablet, Refills 1, Tot. Refills 1, Maintenance, for spasm, 02/21/23 8:21:00 EDT, Route to Pharmacy Electronically, [facility]/pharmacy #[id number], Partial fill upon patient request if the prescription is for a... Start Date: 02/21/23 Status: Ordered Doculase 100 mg oral capsule 1 capsule = 100 mg, By Mouth, 2 times a day, PRN constipation, SOFT GELS. Take with water. Stop taking if loose stools/diarrhea., # 60 capsule, 1 Refills, Soft Stop, 09/28/20 8:49:00 EDT, Capsule, [facility]/pharmacy #[id number], 167, cm, 09/09/20 11:32:00 EST, He... Start Date: 07/28/09 Stop Date: 09/23/21 Status: Ordered docusate sodium 100 mg oral capsule 1 capsule = 100 mg, By Mouth, 2 times a day, PRN for constipation, SOFT GELS. Take with water. Stoptaking if loose stools/diarrhea., # 60 capsule, 5 Refills, Maintenance, 03/06/23 11:48:00 EDT, Capsule, [facility]/pharmacy #[id number], Partial fill upon patient r... Start Date: 03/06/23 Status: Ordered fluticasone 50 mcg/inh nasal spray 2 sprays, Nares, Both, 2 times a day, # 16 Gm, 3 Refills, Maintenance, 10/20/22 9:23:00 EDT, [place],[facility]/pharmacy #1893, Partial fill upon patient request if [...] 11/15/22 8:47:00 EDT, [facility] Partial fill upon patient request if the prescription is... Start Date: 11/15/22 Status: Ordered ibuprofen 600 mg oral tablet 600 mg, 1, tablet, By Mouth, 3 times a day, PRN, # 30 tablet, Refills 1, Tot. Refills 1, Maintenance, Pain , Moderate, 02/21/23 8:21:00 EDT, Route to Pharmacy Electronically, [facility]/pharmacy #[id number], Partial fill upon patient request if the prescription is... Start Date: 02/21/23 Status: Ordered lactulose 10 gm/15 ml oral syrup 15 mL, By Mouth, 2 times a day, PRN NEEDED FOR CONSTIPATION, # 900 mL, 0 Refills, [facility] STORE [facility], 30, TAKE 15 ML BY MOUTH 2 TIMES A DAY, NEEDED FOR CONSTIPATION, 167, cm, 07/14/21 8:11:00 EST,Height, 78.3, kg, 01/02/20 10:47:00 EDT, Dry Weight Start Date: 09/16/21 Status: Ordered loratadine 10 mg oral tablet 1, tablet, By Mouth, Daily, # 90 tablet, Refills 1, Tot. Refills 1, Maintenance, 04/17/23 21:12:00 EDT, Route to Pharmacy Electronically, [facility]/pharmacy #[id number], 168, cm, 01/17/23 10:21:00 EDT, Height, [...] 0 Refills, Soft Stop, 03/06/23 11:48:00 EDT, [facility]/pharmacy #1893, 168, cm, 01/17/23 10:21:00 EDT, Height, [...] 0 Refills, Maintenance, 01/26/23 17:56:00 EDT, Capsule, [facility]/pharmacy #1893, Partial fill upon patient request if [...] Primary Care Member Role: PCP Address: Address: [address] [place] [address]- Name: Aleks ALEJANDRE, Margie Position: Reference Physician Member Role: Primary Care Nurse Address: Address: [address] [place] [address] [address] Clinical & [place] [address]- Care Team Related Persons Name: ECTOR MORFIN Name: CHLOE MORFIN Address: home [address] [place] [address]
--- OUTSIDE RECORDS SUMMARY | 2023-11-01 15:20 | XMS_ITS | Continuity of Care Document ---
Author Organization [facility] Address [address] [place] [address]- Care Team Providers Care Wet Crown Blocking Operator Name Role Phone Devin NAYAK, Theresa Velásquez Primary Care Physic osei [facility]20 - 01/20/21 [facility] [address] [place], [place] [address] Allergies, Adverse Reactions, Alerts [...] [facility]# 25314-213-61 2Result Comment: [05/23/2017] [facility] 24583-165-89 Medications Biotin By Mouth, Daily, 0 Refills, [...] 02/06/19 14:33:11 EDT, Route to Pharmacy Electronically, [id number], [facility]/pharmacy #[id number] Start Date: 02/06/19 Status: Ordered Claritin 10 mg oral tablet 10 mg, 1, tablet, By Mouth, Daily, # 90 tablet, Refills 1, Tot. Refills 1, Maintenance, 06/23/20 8:51:00 EST, Route to Pharmacy Electronically, [facility]/pharmacy #[id number], 167, cm, 05/05/20 10:33:00 EST, Height, 78.3, kg, 01/02/20 10:47:00 EDT, Dry Weight Start Date: 06/23/20 Status: Ordered diclofenac sodium 75 mg oral delayed release tablet 1 tablet = 75 mg, By Mouth, Daily, # 30 tablet, 1 Refills, Maintenance, 04/23/20 13:21:00 EDT, EC Tablet, [facility]/pharmacy #[id number], 167, cm, 01/02/20 10:47:00 EDT, Height, 78.3, kg, 01/02/20 10:47:00 EDT, Dry Weight Start Date: 04/23/20 Status: Ordered Doculase 100 mg oral capsule 1 capsule = 100 mg, By Mouth, 2 times a day, PRN constipation, SOFT GELS. Take with water. Stop taking if loose stools/diarrhea., # 60 capsule, 1 Refills, Soft Stop, 09/28/20 8:49:00 EDT, Capsule, [facility]/pharmacy #1893, 167, cm, 09/09/20 11:32:00 EST, He... Start Date: 07/28/09 Stop Date: 09/23/21 Status: Ordered docusate sodium 100 mg oral capsule 1 capsule = 100 mg, By Mouth, 2 times a day, PRN for constipation, SOFT GELS. Take with water. Stoptaking if loose stools/diarrhea., # 60 capsule, 5 Refills, Maintenance, 12/21/20 10:19:00 EDT, Capsule, [facility]/pharmacy #1893, Partial fill upon patient r... Start Date: 12/21/20 Status: Ordered Fish Oil By Mouth, 0 Refills, Maintenance, 01/01/20 15:41:00 EDT Start Date: 01/01/20 Status: Ordered Flonase 50 mcg/inh nasal spray 2 sprays, Nares, Both, Daily, in each nostril, # 16 Gm, 5 Refills, Maintenance, 10/28/20 12:19:00 EDT, [facility]/pharmacy #1893, 2 sprays Nares, Both Daily,x30 [...] ML BY MOUTH 2 TIMES A DAY, [facility]/pharmacy #1893 Start Date: 05/01/19 Status: Ordered [...] 0 Refills, Soft Stop, 10/25/20 16:07:00 EDT, [facility]/pharmacy #1893, 167, cm, 09/09/20 11:32:00 EST, [...]
--- OUTSIDE RECORDS SUMMARY | 2023-11-01 15:20 | XMS_ITS | Continuity of Care Document ---
Author Organization [facility] Address [address] [place] [address]- Care Team Providers Care Wireless Network Engineer Name Role Phone Devin NAYAK, Theresa Velásquez Primary Care Physic osei [facility] - 06/12/21 [facility] [address] [place] [address]- Allergies, Adverse Reactions, Alerts Substance Reaction Severity [...] 23-valent vaccine 07/13/09 Given 1Result Comment: [05/01/2018] [facility]# 28039-177-80 2Result Comment: [05/23/2017] [facility] 74946-364-22 Medications Biotin By Mouth, Daily, 0 Refills, [...] 02/06/19 14:33:11 EDT, Route to Pharmacy Electronically, [id number], [facility]/pharmacy #1893 Start Date: 02/06/19 Status: Ordered Claritin 10 mg oral tablet 10 mg, 1, tablet, By Mouth, Daily, # 90 tablet, Refills 1, Tot. Refills 1, Maintenance, 06/23/20 8:51:00 EST, Route to Pharmacy Electronically, [facility]/pharmacy #[id number], 167, cm, 05/05/20 10:33:00 EST, Height, 78.3, kg, 01/02/20 10:47:00 EDT, Dry Weight Start Date: 06/23/20 Status: Ordered diclofenac sodium 75 mg oral delayed release tablet 1 tablet = 75 mg, By Mouth, Daily, # 30 tablet, 1 Refills, Maintenance, 05/23/21 17:56:00 EST, EC Tablet, [facility]/pharmacy #1893, 167, cm, 03/17/21 8:09:00 EDT, Height, 78.3, kg, 01/02/20 10:47:00 EDT, Dry Weight Start Date: 05/23/21 Status: Ordered Doculase 100 mg oral capsule 1 capsule = 100 mg, By Mouth, 2 times a day, PRN constipation, SOFT GELS. Take with water. Stop taking if loose stools/diarrhea., # 60 capsule, 1 Refills, Soft Stop, 09/28/20 8:49:00 EDT, Capsule, [facility]/pharmacy #1893, 167, cm, 09/09/20 11:32:00 EST, He... Start Date: 07/28/09 Stop Date: 09/23/21 Status: Ordered docusate sodium 100 mg oral capsule 1 capsule = 100 mg, By Mouth, 2 times a day, PRN for constipation, SOFT GELS. Take with water. Stoptaking if loose stools/diarrhea., # 60 capsule, 5 Refills, Maintenance, 12/21/20 10:19:00 EDT, Capsule, [facility]/pharmacy #1893, Partial fill upon patient r... Start Date: 12/21/20 Status: Ordered Fish Oil By Mouth, 0 Refills, Maintenance, 01/01/20 15:41:00 EDT Start Date: 01/01/20 Status: Ordered Flonase 50 mcg/inh nasal spray 2 sprays, Nares, Both, Daily, in each nostril, # 16 Gm, 5 Refills, Maintenance, 10/28/20 12:19:00 EDT, [facility]/pharmacy #1893, 2 sprays Nares, Both Daily,x30 days,Instr:in [...] ML BY MOUTH 2 TIMES A DAY, [facility]/pharmacy #1893 Start Date: 05/01/19 Status: Ordered melatonin [...] 0 Refills, Soft Stop, 03/11/21 18:08:00 EDT, [facility]/pharmacy #1893, 167, cm, 09/09/20 11:32:00 EST, Height, [...]
--- OUTSIDE RECORDS SUMMARY | 2023-11-01 15:20 | XMS_ITS | Continuity of Care Document ---
Author Organization [facility] srik[facility] Address [address] [place] [address] [address] [place] [address]- Care Team Providers Care Electronics Tech Name Role Phone Devin NAYAK, Theresa Velásquez Primary Care Physic osei [facility]): 04/04[facility]22 - 06/01/22 [facility] [address] [place] [address]- Attending Physician: Tim Cutler MD Referring Physician: [...] 1Result Comment: [facility]: 56351-190-83 Bivalent Booster 2Result Comment: [facility]: [address]-25 3Result Comment: [facility]: 63926-672-43 4Result Comment: [05/01/2018] [facility]# 35641-201-91 5Result Comment: [05/23/2017] [facility] 23182-541-05 Medications aspirin 81 mg oral delayed release tablet 81 mg, 1, tablet, By Mouth, Daily, # 30 tablet, Refills 1, Tot. Refills 1, Maintenance, 12/02/21 15:56:00 EDT, Route to Pharmacy Electronically, [facility]/pharmacy #1893, Partial fill upon patient request if the prescription is for a schedule II opioid drug... Start Date: 12/02/21 Stop Date: 01/31/22 Status: Ordered atorvastatin 40 mg oral tablet 1 tablet = 40 mg, By Mouth, Daily, # 90 tablet, 0 Refills, Maintenance, 11/25/21 17:35:00 EDT, Tablet, [facility]/pharmacy #1893, Partial fill upon patient [...] 06/23/20 8:51:00 EST, Route to Pharmacy Electronically, [facility]/pharmacy #[id number], 167, cm, 05/05/20 10:33:00 EST, Height, 78.3, kg, 01/02/20 10:47:00 EDT, Dry Weight Start Date: 06/23/20 Status: Ordered diclofenac sodium 75 mg oral delayed release tablet 1 tablet = 75 mg, By Mouth, Daily, # 30 tablet, 1 Refills, Maintenance, 05/23/21 17:56:00 EST, EC Tablet, [facility]/pharmacy #1893, 167, cm, 03/17/21 8:09:00 EDT, Height, 78.3, kg, 01/02/20 10:47:00 EDT, Dry Weight Start Date: 05/23/21 Status: Ordered Doculase 100 mg oral capsule 1 capsule = 100 mg, By Mouth, 2 times a day, PRN constipation, SOFT GELS. Take with water. Stop taking if loose stools/diarrhea., # 60 capsule, 1 Refills, Soft Stop, 09/28/20 8:49:00 EDT, Capsule, [facility]/pharmacy #1893, 167, cm, 09/09/20 11:32:00 [...] FOR CONSTIPATION, # 900 mL, 0 Refills, [facility] STORE 93250, 30, TAKE 15 ML BY MOUTH 2 [...] 0 Refills, Soft Stop, 04/21/22 10:42:00 EDT, [id number], 168, cm, 04/17/22 13:06:00 EDT, Height, [...] Personnel Name: Devin NAYAK, Theresa Velásquez Position: [facility] Primary Care Physician Member Role: PCP Address: Address: [address] [place] [address]- Name: Margie Fink NP Position: Reference Physician Member Role: Primary Care Nurse Address: Address: [address] Clinical & [place] [address]- Care Team Related Persons Name: ECTOR MORFIN Name: CHLOE MORFIN Address: home [address] [place] [id number]
--- OUTSIDE RECORDS SUMMARY | 2023-11-01 15:20 | XMS_ITS | Continuity of Care Document ---
Author Organization [facility] Address [address] [place] [address]- Care Team Providers Care Weapons Mechanic Name Role Phone Devin NAYAK, Theresa Velásquez Primary Care Physic osei [facility] - [facility]20 [facility] [address] [place], [place] [address] Allergies, Adverse Reactions, Alerts Substance [...] 23-valent vaccine 07/13/09 Given 1Result Comment: [05/01/2018] [facility]# [id number] 2Result Comment: [05/23/2017] [facility] 10091-681-82 Medications Biotin By Mouth, Daily, 0 Refills, [...] 02/06/19 14:33:11 EDT, Route to Pharmacy Electronically, [id number], [facility]/pharmacy #1893 Start Date: 02/06/19 Status: Ordered Claritin 10 mg oral tablet 10 mg, 1, tablet, By Mouth, Daily, # 90 tablet, Refills 1, Tot. Refills 1, Maintenance, 06/23/20 8:51:00 EST, Route to Pharmacy Electronically, [facility]/pharmacy #1893, 167, cm, 05/05/20 10:33:00 EST, Height, 78.3, kg, 01/02/20 10:47:00 EDT, Dry Weight Start Date: 06/23/20 Status: Ordered diclofenac sodium 75 mg oral delayed release tablet 1 tablet = 75 mg, By Mouth, Daily, # 30 tablet, 1 Refills, Maintenance, 04/23/20 13:21:00 EDT, EC Tablet, [facility]/pharmacy #1893, 167, cm, 01/02/20 10:47:00 EDT, Height, 78.3, kg, 01/02/20 10:47:00 EDT, Dry Weight Start Date: 04/23/20 Status: Ordered Doculase 100 mg oral capsule 1 capsule = 100 mg, By Mouth, 2 times a day, PRN constipation, SOFT GELS. Take with water. Stop taking if loose stools/diarrhea., # 60 capsule, 1 Refills, Soft Stop, 09/28/20 8:49:00 EDT, Capsule, [facility]/pharmacy #1893, 167, cm, 09/09/20 11:32:00 EST, He... Start Date: 07/28/09 Stop Date: 09/23/21 Status: Ordered docusate sodium 100 mg oral capsule 1 capsule = 100 mg, By Mouth, 2 times a day, PRN for constipation, SOFT GELS. Take with water. Stoptaking if loose stools/diarrhea., # 60 capsule, 1 Refills, Maintenance, 09/28/20 11:55:00 EDT, Capsule, [facility]/pharmacy #1893, Partial fill upon patient r... Start Date: 09/28/20 Status: Ordered Fish Oil By Mouth, 0 Refills, Maintenance, 01/01/20 15:41:00 EDT Start Date: 01/01/20 Status: Ordered Flonase 50 mcg/inh nasal spray 2 sprays, Nares, Both, Daily, in each nostril, # 16 Gm, 5 Refills, Maintenance, 10/28/20 12:19:00 EDT, [facility]/pharmacy #1893, 2 sprays Nares, Both Daily,x30 [...] MOUTH 2 TIMES A DAY, [facility]/pharmacy #1893 Start Date: 05/01/19 Status: Ordered [...] 0 Refills, Soft Stop, 10/25/20 16:07:00 EDT, [facility]/pharmacy #1893, 167, cm, 09/09/20 11:32:00 EST, [...]
--- OUTSIDE RECORDS SUMMARY | 2023-11-01 15:20 | XMS_ITS | Continuity of Care Document ---
Author Organization [facility] Address [address] [place] [address]- Care Team Providers Care Pcb Design Engineer Name Role Phone Devin NAYAK, Theresa Velásquez Primary Care Physic osei Encounter [facility] Date(s): 09/03/20 - 09/10/20 [facility] [address] [place] [address]- [place] Encounter Diagnosis RUQ abdominal pain(Discharge Diagnosis) - 09/03/20 Attending Physician: Mitra Hummel Referring Physician: Devin NAYAK, Theresa Velásquez Allergies, [...] 23-valent vaccine 07/13/09 Given 1Result Comment: [05/01/2018] [facility] [id number] 2Result Comment: [05/23/2017] [facility] [id number] Medications Biotin By Mouth, Daily, 0 Refills, [...] 02/06/19 14:33:11 EDT, Route to Pharmacy Electronically, [id number], [facility]/pharmacy #[id number] Start Date: 02/06/19 Status: [...] 04/23/20 13:21:00 EDT, EC Tablet, [facility]/pharmacy #[id number], 167, cm, 01/02/20 10:47:00 EDT, Height, 78.3, kg, 01/02/20 10:47:00 EDT, Dry Weight Start Date: 04/23/20 Status: Ordered Doculase 100 mg oral capsule 1 capsule = 100 mg, By Mouth, 2 times a day, PRN constipation, SOFT GELS. Take with water. Stop taking if loose stools/diarrhea., # 60 capsule, 11 Refills, Soft Stop, 08/19/19 9:43:00 EST, Capsule, [facility]/pharmacy #[id number], 167, cm, 02/20/19 13:00:00 [...] MOUTH 2 TIMES A DAY, [facility]/pharmacy #[id number] Start Date: 05/01/19 Status: [...] 0 Refills, Soft Stop, 07/22/20 10:09:00 EST, [facility]/pharmacy #[id number], 167, cm, [...] Service Informant RUQ abdominal pain Discharge Diagnosis 09/03/20 Vital Signs Most recent to oldest [Reference Range]: 1 Height 167 cm (09/03/20 1:36 PM) Oxygen Saturation [94-100 %] 97 % (09/03/20 1:36 PM) Pulse Rate [55-90 bpm] 99 bpm *H* (09/03/20 1:36 PM) Blood Pressure [90-138/55-84 mm Hg] 133/ 90mm Hg (09/03/20 1:36 PM) Respiratory Rate [16-30 br/min] 16 br/mi n (09/03/20 1:36 PM) Temperature [96.8-100.4 DegF] 98.9 DegF (09/03/20 1:36 PM) Mode of Delivery (Oxygen) Room air (09/03/20 1:36 PM) Blood pressure sites Arm, right (09/03/20 1:36 PM) Temperature Route Temporal (09/03/20 1:36 PM) Social History Social History Type Response Smoking Status Former smoker; Tobac co user in household: No; Type: Cigarettes; Other: 30 years, half a pack to less, quit 9 years ago; entered on: 10/01/17 Sex
--- OUTSIDE RECORDS SUMMARY | 2023-11-01 15:20 | XMS_ITS | Continuity of Care Document ---
Author Organization [facility] Address [address] [place] [address]- Care Team Providers Care Assembler Name Role Phone Devin NAYAK, Theresa Velásquez Primary Care Physic osei Encounter [facility] Date(s): 08/04/22 - 09/03/22 [facility] [address] [place] [address]- Attending Physician: Admtr, [id number] Admitting Physician: Admtr, [...] 1Result Comment: [facility]: [id number] Bivalent Booster 2Result Comment: [facility]: [id number] 3Result Comment: [facility]: [id number] 4Result Comment: [05/01/2018] [facility]# [id number] 5Result Comment: [05/23/2017] [facility] [id number] Medications calcium carbonate 600 mg oral tablet 2 tablet = 1,200 mg, By Mouth, Daily, 0 Refills, Maintenance, 10/01/17 10:10:25 EDT Start Date: 10/01/17 Status: Ordered Claritin 10 mg oral tablet 10 mg, 1, tablet, By Mouth, Daily, # 90 tablet, Refills 1, Tot. Refills 1, Maintenance, 06/23/20 8:51:00 EST, Route to Pharmacy Electronically, [facility]/pharmacy #[id number], 167, cm, 05/05/20 10:33:00 EST, Height, 78.3, kg, 01/02/20 10:47:00 EDT, Dry Weight Start Date: 06/23/20 Status: Ordered cyclobenzaprine 10 mg oral tablet 10 mg, 1, tablet, By Mouth, 3 times a day, PRN, # 30 tablet, Refills 1, Tot. Refills 1, Maintenance, for spasm, 08/21/22 18:00:00 EST, Route to Pharmacy Electronically, [facility]/pharmacy #[id number], Partial fill upon patient request if the prescription is for a... Start Date: 08/21/22 Status: Ordered Doculase 100 mg oral capsule 1 capsule = 100 mg, By Mouth, 2 times a day, PRN constipation, SOFT GELS. Take with water. Stop taking if loose stools/diarrhea., # 60 capsule, 1 Refills, Soft Stop, 09/28/20 8:49:00 EDT, Capsule, [facility]/pharmacy #[id number], 167, cm, 09/09/20 11:32:00 EST, He... Start Date: 07/28/09 Stop Date: 09/23/21 Status: Ordered docusate sodium 100 mg oral capsule 1 capsule = 100 mg, By Mouth, 2 times a day, PRN for constipation, SOFT GELS. Take with water. Stoptaking if loose stools/diarrhea., # 60 capsule, 5 Refills, Maintenance, 07/19/22 15:25:00 EST, Capsule, [facility]/pharmacy #[id number], Partial fill upon patient r... Start Date: 07/19/22 Status: Ordered Flonase 50 mcg/inh nasal spray 2 sprays, Nares, Both, Daily, in each nostril, # 16 Gm, 5 Refills, Maintenance, 01/20/22 10:37:00 EDT, [facility]/pharmacy #[id number], 2 sprays Nares, Both Daily,x30 [...] 08/21/22 18:00:00 EST, [id number] fill upon patient request if the prescription i... Start Date: 08/21/22 Status: Ordered lactulose 10 gm/15 ml oral syrup 15 mL, By Mouth, 2 times a day, PRN NEEDED FOR CONSTIPATION, # 900 mL, 0 Refills, [id number], 30, TAKE 15 ML BY MOUTH 2 [...] 0 Refills, Soft Stop, 08/11/22 19:18:00 EST, [facility]/pharmacy #[id number], 168, cm, 08/04/22 11:16:00 EST, [...] 10/01/17 Sex Note * Event Display: Non Lab Results Authored Date: * Event Display: [...] Care Team Personnel Name: Theresa Beltran MD October Christen Position: [facility] Primary Care Physician Member Role: PCP Address: Address: [address] [place] [id number]- Name: Margie Fink NP Position: Reference Physician Member Role: Primary Care Nurse Address: Address: [address] [place] [address] [address] Clinical [facility] [place] [address]- Care Team Related Persons Name: ECTOR MORFIN Name: CHLOE MORFIN Address: home [address] [place] [address]
--- OUTSIDE RECORDS SUMMARY | 2023-11-01 15:20 | XMS_ITS | Continuity of Care Document ---
Author Organization [facility] ter Address [address] [place] [id number]- Care Team Providers Care Strip Machine Tender Name Role Phone Devin NAYAK, Theresa Velásquez Primary Care Physic osei Encounter [facility] Date(s): 09/14/23 - 09/14/[address] [id number] Discharge Disposition: A-D/C Home Attending Physician: Марина Nguyen MD Admitting Physician: Марина Nguyen MD Referring Physician: Марина Nguyen MD Allergies, Adverse Reactions, Alerts Substance Reaction [...] Given 1Result Comment: [facility]: [id number] Bivalent Booster 2Result Comment: [facility]: [id number] 3Result Comment: [facility]: [id number] 4Result Comment: [05/01/2018] [facility]# [id number] 5Result Comment: [05/23/2017] [facility] [id number] Medications calcium carbonate 600 mg oral tablet 2 tablet = 1,200 mg, By Mouth, Daily, 0 Refills, Maintenance, 10/01/17 10:10:25 EDT Start Date: 10/01/17 Status: Ordered cyclobenzaprine 10 mg oral tablet 10 mg, 1, tablet, By Mouth, 3 times a day, PRN, # 30 tablet, Refills 1, Tot. Refills 1, Maintenance, for spasm, 02/21/23 8:21:00 EDT, Route to Pharmacy Electronically, [facility] #[id number], Partial fill upon patient request if the prescription is for a... Start Date: 02/21/23 Status: Ordered Doculase 100 mg oral capsule 1 capsule = 100 mg, By Mouth, 2 times a day, PRN constipation, SOFT GELS. Take with water. Stop taking if loose stools/diarrhea., # 60 capsule, 1 Refills, Soft Stop, 09/28/20 8:49:00 EDT, Capsule, [facility] #[id number], 167, cm, 09/09/20 11:32:00 EST, He... Start Date: 07/28/09 Stop Date: 09/23/21 Status: Ordered EpiPen 2-Shade 0.3 mg injectable kit = 0.3 mg, Intramuscular, Once, # 1 pack/packet, 1 Refills, Soft Stop, 06/11/23 17:25:00 EST, [facility] #[id number], Partial fill upon patient request if [...] Gm, 3 Refills, Maintenance, 07/20/23 15:17:00 EST, [place], [facility] #[id number], Partial fill upon patient request if [...] CONSTIPATION, # 900 mL, 0 Refills, [id number], 30, TAKE 15 ML BY MOUTH 2 TIMES A DAY, NEEDED FOR CONSTIPATION, 167, cm, 07/14/21 8:11:00 EST,Height, 78.3, kg, 01/02/20 10:47:00 EDT, Dry Weight Start Date: 09/16/21 Status: Ordered loratadine 10 mg oral tablet 1, tablet, By Mouth, Daily, # 90 tablet, Refills 1, Tot. Refills 1, Maintenance, 04/17/23 21:12:00 EDT, Route to Pharmacy Electronically, [facility] #[id number], 168, cm, 01/17/23 10:21:00 EDT, Height, 73.2, kg, 03/28/22 9:43:00 EDT, Dry Weight Start Date: 04/17/23 Status: [facility] Ref[facility] 0, Maintenance, Hair, skin , [...] Stop 09/27/23 13:02:00 EDT, 06/29/23 13:02:00 EST, [facility] #[id number], 168, cm, 01/17/23 10:21:00 EDT, Height, 73.2, kg, 03/28/22 9:43:00 EDT, Dry Weight Start Date: 06/29/23 Stop Date: 09/27/23 Status: Ordered oxyCODONE 5 mg oral tablet 5 mg, 1, tablet, By Mouth, Every 6 hours, PRN, # 20 tablet, Refills 0, Tot. Refills 0, Acute 09/16/23 8:45:00 EDT, as needed for pain, 09/14/23 8:35:00 EDT, Route to Pharmacy Electronically, [id number], Partial fill upon patient request if the... Start Date: 09/14/23 Stop Date: 09/16/23 Status: Ordered Seroquel 800 mg, By Mouth, [...] recent to oldest [Reference Range]: 1 2 3 Height 169 cm (09/14/23 9:14 AM) 169 cm (09/12/23 11:21 AM) Weight 69.1 kg (09/14/23 9:14 AM) 72.7 kg (09/12/23 11:21 AM) Oxygen Saturation [94-100 %] 97 % (09/14/23 3:33 PM) 100 % (09/14/23 11:45 AM) 100 % (09/14/23 11:30 AM) Pulse Rate [55-90 bpm] 72 bpm (09/14/23 9:14 AM) Body Mass Index [18.5-24.99 kg/m2] 24.19 kg/m2 (09/14/23 9:14 AM) 25.45 kg/m2 *H* (09/12/23 11:21 AM) Blood Pressure [90-138/55-84 mm Hg] 136/85mm Hg (09/14/23 3:33 PM) 151/81mm Hg *H* (09/14/23 11:45 AM) 162/74mm Hg *H* (09/14/23 11:30 AM) Respiratory Rate [16-30 br/min] 16 br/min (09/14/23 3:33 PM) 21 br/min (09/14/23 11:45 AM) 22 br/min (09/14/23 11:30 AM) Temperature [96.8-100.4 DegF] 97.2 DegF (09/14/23 11:45 AM) 97.3 DegF (09/14/23 11:00 AM) 98.2 DegF (09/14/23 9:14 AM) Liters per Minute 6 L/min (09/14/23 11:00 AM) Mode of Delivery (Oxygen) Room air (09/14/23 3:52 PM) Room air (09/14/23 3:30 PM) Room air (09/14/23 3:00 PM) Blood pressure sites Leg, left (09/14/23 11:45 AM) Leg, left (09/14/23 11:30 AM) Leg, left (09/14/23 11:15 AM) Temperature Route Temporal (09/14/23 11:00 AM) Temporal (09/14/23 9:14 AM) Dry Weight 69.1 kg (09/14/23 9:14 AM) 72.7 kg (09/12/23 11:21 AM) Weight Obtained Via Standing scale (09/14/23 9:14 AM) Patient/family stated (09/12/23 11:21 AM) Dry Weight Obtained Via Standing scale (09/14/23 9:14 AM) Patient/family stated (09/12/23 11:21 AM) Social History Social History Type Response Smoking Status Former smoker; Tobac co user in household: No; Type: Cigarettes; Other: 30 years, half a pack to less, quit 9 years ago; entered on: 10/01/17 Sex History and physical note * Patrick NAYAK, Марина: PERFORM Event Display: History and Physical Hospital Authored Date: CHIEF COMPLAINT: Right distal radius fracture HISTORY OF PRESENT ILLNESS: The patient is a 67 year-old female with right distal radius fracture. PAST MEDICAL HISTORY: Bipolar, arthritis, GERD, diabetes, skin cancer PAST SURGICAL HISTORY: TKA, back MEDICATIONS: See List. ALLERGIES: Levaquin, Lovenox, penicillin, Effexor SOCIAL HISTORY: Vape FAMILY HISTORY: Noncontributory. REVIEW OF SYSTEMS: Denies fevers, chills, unexplained weight loss or gain, night sweats, chest pain, shortness of breath, palpitations, nausea or vomiting. Has otherwise been healthy. PHYSICAL EXAMINATION: General: Pleasant, communicative and answering questions appropriately. HEENT: Head is normocephalic and atraumatic. Heart: Normal. Chest: Lungs are normal. Respirations were unlabored. Abdomen: Benign. Neurologic: Gait is normal. Extremities: Wrist evaluation demonstrates digital range of motion, exam limited by splint ASSESSMENT: Right distal radius fracture anticipating ORIF PLAN: Surgical consents have been obtained reflecting discussion of risks, benefits and alternatives of the proposed procedures. Risks discussed include but are not limited to: infection, bleeding, damage to normal tissues, need for future surgeries. Benefits are found to outweigh the risks and appropriate preoperative consents have been obtained. The patient will be seen next on the date of surgery. Note * Yeni Oseguera RN: PERFORM Event Display: Discharge/Transfer Note Hospital Authored Date: [id number] Nursing Discharge Note Entered On: 09/14/2023 15:53 EDT Performed On: 09/14/2023 15:52 EDT by Yeni Oseguera RN Nursing Discharge Note 2 Discharge Time : 09/14/2023 15:52 EDT Discharge Level of Care at Discharge : Home/Long-Term/Foster Care Patient Left Unit Via : Wheelchair Patient Accompanied Off Unit with : Responsible adult DC Instructions Provided & Signed by Pt : Yes Patient Understands D/C Instructions : Yes Verbalized Understanding of D/C Plan By : Patient Patient Instructions Discharge Signed : Yes Did Pt have Specialty Bed or Wound Vac : No Yeni Oseguera RN - 09/14/2023 15:52 EDT * Shawna Garcia RN: PERFORM Event Display: Patient Education/Instruction Authored Date: [id number] Inpatient Adult Discharge Instructions. [address] [address] Name: KYLIE ROBERTSON : 1955?? Visit: 09/14/2023 07:08?? Current Date: 09/14/2023 12:14 ?? Account: [id number]?? Inpatient Adult Discharge Instructions We would like to thank you for allowing us to assist you with your healthcare needs. The following includes patient education materials and information regarding your injury/illness. Our entire staffstrives to provide an excellent experience for our patients and their families. PLEASE ENSURE YOU FOLLOW-UP PER THE INSTRUCTIONS BELOW! ?? YOUR OPINION IS IMPORTANT TO US! Please complete the survey you may receive by mail or email. Your feedback will be used to make improvements to the healthcare experiences of our patients and their families. Surveys are administered by [employer] ?? If further treatment with your primary care physician or another doctor is recommended, it is important for you to keep the appointment. Call your primary care physician or return to the Emergency Department immediately if your condition worsens, fails to improve, or new symptoms develop. If you need to find a doctor, you can call [facility] [employer] for a referral at [phone] or toll free at [phone]) or log in to [email or web address].. ?? [facility], in keeping with [facility] guidance, no longer requires face masks for staff, patientsor visitors in most situations. Similiar to time spent indoors at other locations, there is the chance that you were exposed to repiratory viruses during your time with us (such as flu or COVID-19). If you develop symptoms concerning for a viral respiratory infection, please seek testing (and treatment if indicated) from your medical provider or home test kit. ?? You can view and manage your care through the patient portal or by using a health care katelin of your choosing. [employer] is a website that allows you to securely view your medical information including your hospital discharge summary, office visit summaries, medications and follow-up visits. You can also request appointments, renew medications, and request access to your medical information using a health care katelin of your choosing, or just ask a question. You can enroll at [email or web address] or register during your next office visit. You have been discharged from [facility], Patient Care Unit: [facility]??. If you have any questions regarding these instructions, including results of studies pending, afteryou leave, please call us and we will be happy to assist you 22/01. [facility] Nursing Unit Direct Phone Number, for 22/01 contact and results of studies pending [facility] [address] [place] [address] Your Care Team Attending Physician Марина Nguyen MD?? Consulting Providers Марина Nguyen MD?? Discharging Providers Марина Nguyen MD Tests Performed Below is a partial list of the tests performed during your hospitalization. You may have had other tests and procedures not included in this list. Please discuss all test results with your provider. No tests performed during this visit.?? Primary Care Provider Devin NAYAK, Theresa Velásquez? Advance Directive Health Care Proxy on File Yes - Health Care Proxy Yes - MOLST Discharge Vitals Temperature: 97.2 DegF Height: 169 cm Pulse Rate: 72 bpm Weight: 69.1 kg Respiratory Rate: 21 br/min Body Mass Index: 24.19 kg/m2 Systolic Blood Pressure:??151 mm Hg??High Body surface area: 1.8 Diastolic Blood Pressure: 81 mm Hg ?? Oxygen Saturation: 100 % ?? Studies Pending All studies ordered during this hospital stay have been completed unless listed below. Please discuss all pending results with your provider listed above in these instructions. ?? No incomplete studies found?? What to do next Instructions From Your Doctor ?? Orders?? evaluation by surgeon, ??09/14/23 8:34:00 EDT?? Prescriptions??, ??09/14/23 8:34:00 EDT?? Instructions from your Care Team -Scripts sent to pharmacy -May apply ice to hand - 20 minutes on, 40 minutes off -Keep hand elevated with purple pillow, or other pillows -Use sling until block wears off You Need to Schedule the Following Appointments Follow Up with??Марина Nguyen Why: Call office with any questions Where: [address] [place] [address] [address] [facility] [place] [address]- [facility] (1) Follow Up with??Theresa Beltran When:??In 0 days Discharge Medications KYLIE ROBERTSON :1955 Visit Date:09/14/2023 Medications: Please continue your medications until treatment is completed or stopped by your provider. Medications not listed below should be discontinued. Discuss any questions related to medications with your provider. What How Much When Why Instructions Next Dose New Oxycodone (oxyCODONE 5 mg oral tablet) 1 tab(s) Oral Every 6 hours as needed for as needed for pain Pickup at [facility]pharm[facility] #[id number] Always take with food Unchanged Calcium Carbonate (calcium carbonate 600 mg oral tablet) 2 tab(s) Oral Daily Unchanged Cyclobenzaprine (cyclobenzaprine 10 mg oral tablet) 1 tab(s) Oral 3 times a day as needed for for spasm Unchanged Docusate (Doculase 100 mg oral capsule) 1 capsule Oral Twice a day as needed for constipation SOFT GELS. Take with water. Stop taking if loose stools/ diarrhea. ?? Unchanged EPINEPHrine (EpiPen 2-Shade 0.3 mg injectable kit) 0.3 Milligram Intramuscular Once Unchanged Eszopiclone (eszopiclone 3 mg oral tablet) TAKE 1 TABLET BY MOUTH ONCE A DAY AT BEDTIME ?? Unchanged Fluticasone Nasal (fluticasone 50 mcg/ inh nasal spray) 2 spray(s) Nares, Both Daily Seasonal allergic rhinitis due to pollen Unchanged Gabapentin (gabapentin 400 mg oral capsule) 1 capsule Oral Daily at Bedtime Abida Salazar NP (prescriber) ?? Unchanged Lactulose (lactulose 10 gm/ 15 ml oral syrup) 15 Milliliter Oral Twice a day as needed for NEEDED FOR CONSTIPATION Unchanged Loratadine (loratadine 10 mg oral tablet) 1 tab(s) Oral Daily Unchanged Miscellaneous Rx (Misc Rx) Hair, skin , nails 1 tab daily ?? Unchanged Multivitamin Oral Daily Unchanged [place]-3 Polyunsaturated Fatty Acids (Fish Oil 1000 mg oral capsule) 1 capsule Oral Daily Unchanged Omeprazole (omeprazole 20 mg oral enteric coated capsule) 1 capsule Oral Twice a day Duration: 90 Days Unchanged Quetiapine (Seroquel) 800 Milligram Oral Daily at Bedtime Unchanged Simethicone (simethicone 125 mg oral capsule) 1 capsule Oral 3 times a day Unchanged Vitamin E 1 tab(s) Oral Daily Pharmacy Information [facility]/pharm[facility] #[id number]: [address] [place], [place] [phone] Prescription Given During Visit Oxycodone (oxyCODONE 5 mg oral tablet) - 1 tablet = 5 mg, By Mouth, Every 6 hours, # 20 tablet, 0 Refills, [facility]pharm[facility] #[id number], [address] [place] [phone]?? Laboratory Results Below is a partial list of the most recent Laboratory test results done prior to this discharge. You may have had other tests and procedures not included in this list. Please discuss all test resultswith your provider. Allergies (NKA means No Known Allergies) Bee Stings??(swelling) Effexor??(constipation) Levaquin??(H/O: penicillin allergy) Lovenox??(itching) Other Environmental Allergy??(pet hair, trees, grass, pollen) penicillins??(? reaction) Problems Active Problems??(20) Acid reflux?? Alcoholism in recovery?? ASCUS with positive high risk HPV cervical?? Atrophic vaginitis?? Basal cell cancer?? Bicornuate uterus?? Bipolar disorder?? Chronic constipation?? Chronic insomnia?? Constipation (severe)?? Depression, major, recurrent, moderate?? GERD?? History of diverticulitis of colon?? hx bladder suspension?? Knee pain, right?? Mixed hyperlipidemia?? Mole of skin?? Sleep apnea?? Urinary incontinence, mixed?? Wrist pain, left?? Education Materials Below is the list of Educational Leaflet Providered with your Discharge Instructions. [employer] Patient Education - Surgery Medical Daystay Surgical Overnight Discharge Instructions?? Valuables and Belongings I fully understand and agree that [facility] accepts no responsibility for all my personal property including clothing, toilet articles, radios, jewelry, dentures, hearing aids, rings, money, or any other property that is in my possession or is brought to me after admission. I understand certain valuables may be placed in a hospital safe for a short period of time. I understand that the hospital is not liable for loss or damage due to accident, fire, or other natural occurrence while said property is in the safe. I accept full responsibility for any personal property that I keep with me, and will not hold the hospital responsible in case of loss or disappearance. I acknowledge that i have been encouraged to send valuables and belongings home. ?? Review of Valuable and Belonging List: With patient Date for Pt to Sign Valuables/Belongings: 09/14/23 09:14:00 ?? Valuables & Belongings ?? Clothes Electronic devices Jewelry Monetary Items Personal devices Miscellaneous Medications (Valuables) Valuables at Bedside Jacket, Pants, Shirt, Shoes, Undergarments Cell phone ?? Other: purse Glasses, Other: wrist brace ? Valuables Sent Home ? Valuables Sent to Security ? Other Discharge Information ? Pulmonary Rehab Status?? Pulmonary Rehab Discharge Status?? Respiratory Rate: 21 br/min ? Common Emergency Awareness Tips IS IT A STROKE? Act FAST and Check for these signs: FACE Does the face look uneven? ARM Does one arm drift down? SPEECH Does their speech sound strange? TIME Call at any sign of stroke ?? Heart Attack Signs Chest discomfort: Most heart attacks involve discomfort in the center of the chest and lasts more than a few minutes, or goes away and comes back. It can feel like uncomfortable pressure, squeezing, fullness or pain. Discomfort in upper body: Symptoms can include pain or discomfort in one or both arms, back, neck, jaw or stomach. Shortness of breath: With or without discomfort. Other signs: Breaking out in a cold sweat, nausea, or lightheaded. Remember, MINUTES DO MATTER. If you experience any of these heart attack warning signs, call to get immediate medical attention! ?? Smoking can increase your chances of developing chronic health problems and can cause harmful effects to other family members in your house. If you smoke, you are strongly encouraged to quit. Please call [facility] [employer] [facility] at [phone] or [phone] ([phone]) or log in to [email or web address] for referrals to smoking cessation programs. ?? 780 Suicide & Crisis Lifeline is available 22/01 if you or someone you know needs to find a reason to keep living. By calling 727 you'll be connected to a skilled, trained counselor at a crisis center in your area. INPATIENT DISCHARGE INSTRUCTIONS SIGNATURE PAGE KYLIE ROBERTSON Location:[facility] Registration Date and Time:09/14/2023 07:08 EDT Primary Care Physician: Devin NAYAK, Theresa Velásquez, Attending Physician: Patrick NAYAK, Марина, I KYLIE ROBERTSON, have received the above patient education materials/instructions and have verbalized understanding. If ambulance or transport services are being used I further acknowledge being given a choice of service. ?? If you need to contact me, please call me at this number: __[phone] . Patient/Mail Caller Name:____Kylie Robertson Patient/Mail Caller Signature: Relationship to Patient: Self Witness Name/Signature: Date: 09/14/2023 * Shawna Garcia RN: PERFORM, SIGN, VERIFY Event Display: Patient Education Handout Authored Date: [id number] * Shawna Garcia RN: PERFORM Event Display: Patient Education Leaflets Authored Date: [id number] Surgery Medical Daystay Surgical Overnight Discharge Instructions ?? 295 Medical Daystay/Surgical Overnight Discharge Instructions ? Since your coordination and judgment may be altered by medication and/or anesthesia, a responsible adult must drive you home from the hospital. ? If you have received medication for pain or sedation while under our care, you should not drive, operate machinery, drink alcohol, or sign any legal documents for 24 hours.?? You should have someone with you at home tonight. ? Remain at home the day of discharge.?? You may be up and about unless otherwise instructed by your physician. ? You may resume your daily prescription medication schedule.?? Any depressant medication should be avoided for 24 hours unless otherwise instructed by your surgeon or anesthesiologist. ? Call your physician for a follow-up appointment.? If you experience unusual or severe pain not relied by your pain medication, excessive bleedingor drainage, persistent nausea and vomiting, excessive swelling or redness, foul odor from incisionsite or fever over 100.6F, you need to call your physician. ? A follow-up phone call by a nurse will be made the day after your procedure.?? If you have stayed with us over night, you will not be receiving a follow-up phone call. ? Nausea and vomiting are a common side effect of prescription pain medication.?? We recommend that pills are not taken on an empty stomach.?? While taking any prescription pain medication you should not drive or drink alcohol. ? Patient Care team information Care Team Personnel Name: Devin NAYAK, Theresa Velásquez Position: S Physician - Primary Care Member Role: PCP Address: Address: [address] [place] [address]- [place] Name: Margie Fink NP Position: Reference Physician Member Role: Primary Care Nurse Address: Address: [address] Clinical [facility] [place] [address]- Care Team Related Persons Name: ECTOR ROBERTSON Name: CHLOE ROBERTSON Address: home [address] [place] [address]
--- OUTSIDE RECORDS SUMMARY | 2023-11-01 15:20 | XMS_ITS | Continuity of Care Document ---
Author Organization [facility] Address [address] [place] [address]- Care Team Providers Care Molding Line Assistant Name Role Phone Devin NAYAK, Theresa Velásquez Primary Care Physic osei [facility]23 [facility] [address] [place] [address]- Allergies, Adverse Reactions, Alerts Substance Reaction Severity [...] influenza virus vaccine, inactivated 4 05/01/18 Gi doimnik influenza virus vaccine, inactivated 5 05/23/17 Gi dominik influenza virus vaccine, inactivated 04/11/16 Give n influenza virus vaccine, inactivated 06/17/15 Give n influenza virus vaccine, inactivated 06/19/14 Give n tetanus/diphtheria/pertussis, acel(Tdap) 12/29/15 Given pneumococcal 23-valent vaccine 07/13/09 Given 1Result Comment: [facility]: 30507-007-48 Bivalent Booster 2Result Comment: [facility]: [address]-47 3Result Comment: [facility]: 36030-204-73 4Result Comment: [05/01/2018] [facility]# 87523-702-09 5Result Comment: [05/23/2017] [facility] 93104-545-18 Medications calcium carbonate 600 mg oral tablet 2 tablet = 1,200 mg, By Mouth, Daily, 0 Refills, Maintenance, 10/01/17 10:10:25 EDT Start Date: 10/01/17 Status: Ordered Claritin 10 mg oral tablet 10 mg, 1, tablet, By Mouth, Daily, # 90 tablet, Refills 1, Tot. Refills 1, Maintenance, 06/23/20 8:51:00 EST, Route to Pharmacy Electronically, [facility]/pharmacy #[id number], 167, cm, 05/05/20 10:33:00 EST, Height, 78.3, kg, 01/02/20 10:47:00 EDT, Dry Weight Start Date: 06/23/20 Status: Ordered Doculase 100 mg oral capsule 1 capsule = 100 mg, By Mouth, 2 times a day, PRN constipation, SOFT GELS. Take with water. Stop taking if loose stools/diarrhea., # 60 capsule, 1 Refills, Soft Stop, 09/28/20 8:49:00 EDT, Capsule, [facility]/pharmacy #[id number], 167, cm, 09/09/20 11:32:00 EST, He... Start Date: 07/28/09 Stop Date: 09/23/21 Status: Ordered docusate sodium 100 mg oral capsule 1 capsule = 100 mg, By Mouth, 2 times a day, PRN for constipation, SOFT GELS. Take with water. Stoptaking if loose stools/diarrhea., # 60 capsule, 5 Refills, Maintenance, 07/19/22 15:25:00 EST, Capsule, [facility]/pharmacy #[id number], Partial fill upon patient r... Start Date: 07/19/22 Status: Ordered fluticasone 50 mcg/inh nasal spray 2 sprays, Nares, Both, 2 times a day, # 16 Gm, 3 Refills, Maintenance, 10/20/22 9:23:00 EDT, [place],[facility]/pharmacy #[id number], Partial fill upon patient [...] 11/15/22 8:47:00 EDT, Route to Pharmacy Electronically, [facility]/pharmacy #[id number], Partial fill upon patient request if the prescription is... Start Date: 11/15/22 Status: Ordered lactulose 10 gm/15 ml oral syrup 15 mL, By Mouth, 2 times a day, PRN NEEDED FOR CONSTIPATION, # 900 mL, 0 Refills, [facility], 30, TAKE 15 ML BY MOUTH 2 TIMES A DAY, NEEDED FOR CONSTIPATION, 167, cm, 07/14/21 8:11:00 EST,Height, 78.3, kg, 01/02/20 10:47:00 EDT, Dry Weight Start Date: 09/16/21 Status: Ordered loratadine 10 mg oral tablet 10 mg, 1, tablet, By Mouth, Daily, # 90 tablet, Refills 1, Tot. Refills 1, Maintenance, 10/20/22 9:15:00 EDT, Route to Pharmacy Electronically, [facility]/pharmacy #[id number], Partial fill upon patient [...] Care Member Role: PCP Address: Address: [address] [place] [address] Name: Aleks ALEJANDRE, Margie Position: Reference Physician Member Role: Primary Care Nurse Address: Address: [address] [place] [address] [address] Clinical & [place] [address]- Care Team Related Persons Name: ECTOR MORFIN Name: CHLOE MORFIN Address: home [address] [place] [address]
--- OUTSIDE RECORDS SUMMARY | 2023-11-01 15:20 | XMS_ITS | Continuity of Care Document ---
Author Organization [facility] Address [address] [place] [address]- Care Team Providers Care Mortgage Loan Specialist Name Role Phone Devin NAYAK, Theresa Velásquez Primary Care Physic osei [facility] - 07/21/21 [facility] [address] [place] [address]- Attending Physician: Devin NAYAK, Theresa Velásquez Referring Physician: Tyler Hudson MD Allergies, Adverse Reactions, Alerts Substance Reaction [...] 07/13/09 Given 1Result Comment: [facility]: [address]-13 2Result Comment: [05/01/2018] [facility]# 20509-881-69 3Result Comment: [05/23/2017] [facility] 72285-678-56 Medications Biotin By Mouth, Daily, 0 Refills, [...] Refills, Maintenance, 05/23/21 17:56:00 EST, EC Tablet, [facility]/pharmacy #[id number], 167, cm, 03/17/21 8:09:00 EDT, [...] Date: 07/28/09 Stop Date: 09/23/21 Status: Ordered Flonase 50 mcg/inh nasal spray [...] oldest [Reference Range]: 1 Height 167 cm (07/14/21 8:11 AM) Weight 71.9 kg (07/14/21 8:11 AM) Body Mass Index [18.5-24.99] 25.78 *H* (07/14/21 8:11 AM) Blood Pressure [90-138/55-84 mm Hg] 108/ 74mm Hg (07/14/21 8:11 AM) Blood pressure sites Arm, right (07/14/21 8:11 AM) Weight Obtained Via Standing scale (07/14/21 8:11 AM) Social History Social History Type Response Smoking Status Former smoker; Tobac co user in household: No; Type: Cigarettes; Other: 30 years, half a pack to less, quit 9 years ago; entered on: 10/01/17 Sex
--- OUTSIDE RECORDS SUMMARY | 2023-11-01 15:20 | XMS_ITS | Continuity of Care Document ---
Author Organization [facility] Address [address] [place] [address]- Care Team Providers Care Quality Assurance Supervisor Body Name Role Phone Devin NAYAK, Theresa Velásquez Primary Care Physic osei [facility]): 10/09/22 - 11/08/22 [facility] [address] [place] [address]- Allergies, Adverse Reactions, Alerts Substance Reaction Severity [...] 23-valent vaccine 07/13/09 Given 1Result Comment: [facility]: 14712-474-61 Bivalent Booster 2Result Comment: [facility]: [address]-36 3Result Comment: [facility]: 62882-829-72 4Result Comment: [05/01/2018] [facility]# 47774-008-87 5Result Comment: [05/23/2017] [facility] 85984-241-94 Medications calcium carbonate 600 mg oral tablet 2 tablet = 1,200 mg, By Mouth, Daily, 0 Refills, Maintenance, 10/01/17 10:10:25 EDT Start Date: 10/01/17 Status: Ordered Claritin 10 mg oral tablet 10 mg, 1, tablet, By Mouth, Daily, # 90 tablet, Refills 1, Tot. Refills 1, Maintenance, 06/23/20 8:51:00 EST, Route to Pharmacy Electronically, [facility]/pharmacy #[id number], 167, cm, 05/05/20 10:33:00 EST, Height, 78.3, kg, 01/02/20 10:47:00 EDT, Dry Weight Start Date: 06/23/20 Status: Ordered cyclobenzaprine 10 mg oral tablet 10 mg, 1, tablet, By Mouth, 3 times a day, PRN, # 30 tablet, Refills 1, Tot. Refills 1, Maintenance, for spasm, 10/10/22 16:02:00 EDT, Route to Pharmacy Electronically, [facility]/pharmacy #[id number], Partial fill upon patient request if the prescription is for a... Start Date: 10/10/22 Status: Ordered Doculase 100 mg oral capsule 1 capsule = 100 mg, By Mouth, 2 times a day, PRN constipation, SOFT GELS. Take with water. Stop taking if loose stools/diarrhea., # 60 capsule, 1 Refills, Soft Stop, 09/28/20 8:49:00 EDT, Capsule, [facility]/pharmacy #[id number], 167, cm, 09/09/20 11:32:00 EST, He... Start Date: 07/28/09 Stop Date: 09/23/21 Status: Ordered docusate sodium 100 mg oral capsule 1 capsule = 100 mg, By Mouth, 2 times a day, PRN for constipation, SOFT GELS. Take with water. Stoptaking if loose stools/diarrhea., # 60 capsule, 5 Refills, Maintenance, 07/19/22 15:25:00 EST, Capsule, [facility]/pharmacy #[id number], Partial fill upon patient r... Start Date: 07/19/22 Status: Ordered fluticasone 50 mcg/inh nasal spray 2 sprays, Nares, Both, 2 times a day, # 16 Gm, 3 Refills, Maintenance, 10/20/22 9:23:00 EDT, [place],[facility]/pharmacy #[id number], Partial fill upon patient request [...] 08/21/22 18:00:00 EST, Route to Pharmacy Electronically, [facility]/pharmacy #[id number], Partial fill upon patient request if the prescription i... Start Date: 08/21/22 Status: Ordered lactulose 10 gm/15 ml oral syrup 15 mL, By Mouth, 2 times a day, PRN NEEDED FOR CONSTIPATION, # 900 mL, 0 Refills, [facility], 30, TAKE 15 ML BY MOUTH 2 TIMES A DAY, NEEDED FOR CONSTIPATION, 167, cm, 07/14/21 8:11:00 EST,Height, 78.3, kg, 01/02/20 10:47:00 EDT, Dry Weight Start Date: 09/16/21 Status: Ordered loratadine 10 mg oral tablet 10 mg, 1, tablet, By Mouth, Daily, # 90 tablet, Refills 1, Tot. Refills 1, Maintenance, 10/20/22 9:15:00 EDT, Route to Pharmacy Electronically, [facility]/pharmacy #[id number], Partial fill upon patient request [...] 12/29/22 23:00:00 EDT, 10/20/22 9:26:00 EDT, [place], [facility]/pharmacy #[id number], Partial fill upon patientrequest if [...] Personnel Name: Devin NAYAK, Theresa Velásquez Position: [facility] Primary Care Physician Member Role: PCP Address: Address: [address] [place] [address]- Name: Margie Fink NP Position: Reference Physician Member Role: Primary Care Nurse Address: Address: [address] [place] [address] [address] Clinical & [place] [address]- Care Team Related Persons Name: ECTOR MORFIN Name: CHLOE MORFIN Address: home [address] [place] [address]
--- OUTSIDE RECORDS SUMMARY | 2023-11-01 15:20 | XMS_ITS | Continuity of Care Document ---
Author Organization [facility] Address [address] [place] [address]- Care Team Providers Care Improvement Intern Name Role Phone Devin NAYAK, Theresa Velásquez Primary Care Physic osei [facility] 04[facility]22 - 05/17/22 [facility] [address] [place] [address]- Allergies, Adverse Reactions, Alerts Substance Reaction Severity [...] 23-valent vaccine 07/13/09 Given 1Result Comment: [facility]: 12094-455-49 Bivalent Booster 2Result Comment: [facility]: [address]-71 3Result Comment: [facility]: 56656-112-71 4Result Comment: [05/01/2018] [facility]# 52989-970-29 5Result Comment: [05/23/2017] [facility] 20543-369-46 Medications aspirin 81 mg oral delayed release tablet 81 mg, 1, tablet, By Mouth, Daily, # 30 tablet, Refills 1, Tot. Refills 1, Maintenance, 12/02/21 15:56:00 EDT, Route to Pharmacy Electronically, [facility]/pharmacy #[id number], Partial fill upon patient request if the prescription is for a schedule II opioid drug... Start Date: 12/02/21 Stop Date: 01/31/22 Status: Ordered atorvastatin 40 mg oral tablet 1 tablet = 40 mg, By Mouth, Daily, # 90 tablet, 0 Refills, Maintenance, 11/25/21 17:35:00 EDT, Tablet, [facility]/pharmacy #[id number], Partial fill [...] Refills, Maintenance, 05/23/21 17:56:00 EST, EC Tablet, [facility]/pharmacy #[id number], 167, cm, 03/17/21 [...] 5 Refills, Maintenance, 12/07/21 10:34:00 EDT, Capsule, [facility]/pharmacy #1893, Partial fill upon patient r... Start Date: 12/07/21 Status: Ordered Eliquis 5 mg oral tablet 1 tablet = 5 mg, By Mouth, 2 times a day, # 60 tablet, 1 Refills, Maintenance, 11/29/21 11:57:00 EDT, Tablet, [facility]/pharmacy #1893, Partial fill [...] 0 Refills, [facility]65, 30, TAKE 15 ML BY MOUTH 2 [...] 0 Refills, Soft Stop, 04/21/22 10:42:00 EDT, [facility]/pharmacy #[id number], 168, cm, 04/17/22 13:06:00 EDT, [...] Personnel Name: Devin NAYAK, Theresa Velásquez Position: [facility] Primary Care Physician Member Role: PCP Address: Address: [address] [place] [address]- Name: Margie Fink NP Position: Reference Physician Member Role: Primary Care Nurse Address: Address: [address] [facility] [address] Clinical & [place] [address]- Care Team Related Persons Name: ECTOR MORFIN Name: CHLOE MORFIN Address: home [address] [place] [address]
--- OUTSIDE RECORDS SUMMARY | 2023-11-01 15:20 | XMS_ITS | Continuity of Care Document ---
Author Organization [facility] Address [address] [place] [address]- Care Team Providers Care Offbearer Name Role Phone Devin NAAYK, Theresa Velásquez Primary Care Physic osei Encounter [facility] Date(s): 11/07/21 - 11/14/21 [facility] [address] [place] [address]- Encounter Diagnosis Depression, major, recurrent, moderate(Discharge Diagnosis) - 11/07/21 Coronary artery disease(Discharge Diagnosis) - 11/07/21 Attending Physician: Theresa Beltran MD Allergies, Adverse Reactions, Alerts Substance Reaction Severity Status levofloxacin pruritus Active Effexor constipation Active Levaquin H/O: penicillin allergy Acti ve Bee Stings Active Other Environmental Allergy Active penicillins Active Immunizations Given and Recorded Vaccine Date [...] 07/13/09 Given 1Result Comment: [facility]: [address]-58 2Result Comment: [05/01/2018] [facility]# 82554-322-83 3Result Comment: [05/23/2017] [facility] 83272-227-84 Medications Biotin By Mouth, Daily, 0 Refills, [...] 8:51:00 EST, Route to Pharmacy Electronically, [facility]/pharmacy #[id number], 167, cm, 05/05/20 10:33:00 EST, Height, 78.3, kg, 01/02/20 10:47:00 EDT, Dry Weight Start Date: 06/23/20 Status: Ordered diclofenac sodium 75 mg oral delayed release tablet 1 tablet = 75 mg, By Mouth, Daily, # 30 tablet, 1 Refills, Maintenance, 05/23/21 17:56:00 EST, EC Tablet, [facility]/pharmacy #[id number], 167, cm, 03/17/21 8:09:00 EDT, Height, 78.3, kg, 01/02/20 10:47:00 EDT, Dry Weight Start Date: 05/23/21 Status: Ordered Doculase 100 mg oral capsule 1 capsule = 100 mg, By Mouth, 2 times a day, PRN constipation, SOFT GELS. Take with water. Stop taking if loose stools/diarrhea., # 60 capsule, 1 Refills, Soft Stop, 09/28/20 8:49:00 EDT, Capsule, [facility]/pharmacy #[id number], 167, cm, 09/09/20 11:32:00 EST, He... Start Date: 07/28/09 Stop Date: 09/23/21 Status: Ordered docusate sodium 100 mg oral capsule 1 capsule = 100 mg, By Mouth, 2 times a day, PRN for hard stool, SOFT GELS. Take with water. Stop taking if loose stools/diarrhea., # 20 capsule, 0 Refills, Maintenance, 08/23/21 16:43:00 EST, Capsule, [facility]/pharmacy #[id number], Partial fill upon patient req... Start Date: 08/23/21 Stop Date: 09/22/21 Status: Ordered docusate sodium 100 mg oral capsule See Instructions, TAKE 1 CAPSULE BY MOUTH 2 TIMES A DAY NEEDED FOR HARD STOOLS. TAKE WITH WATER.STOP TAKING IF LOOSE STOOLS/DIARRHEA, # 20 capsule, 0 Refills, 11/11/21 13:03:00 EDT, [facility]/pharmacy #[id number], 167, cm, 11/07/21 9:50:00 EDT, Height, 78.3,... Start Date: 11/11/21 Status: Ordered Flonase 50 mcg/inh nasal spray 2 sprays, Nares, Both, Daily, in each nostril, # 16 Gm, 5 Refills, Maintenance, 10/28/20 12:19:00 EDT, [facility]/pharmacy #[id number], 2 sprays Nares, Both [...] CONSTIPATION, # 900 mL, 0 Refills, [facility] 16263, 30, TAKE 15 ML BY MOUTH 2 [...] Dates Health Status Cl inical Service Informant Depression, major, recurrent, moderate Discharge Diagnosis 11/07/21 Coronary artery disease Discharge Diagnosis 11/07/21 Vital Signs Most recent to oldest [Reference Range]: 1 Height 167 cm (11/07/21 9:50 AM) Weight 70.2 kg (11/07/21 9:50 AM) Pulse Rate [55-90 bpm] 79 bpm (11/07/21 9:50 AM) Body Mass Index [18.5-24.99] 25.17 *H* (11/07/21 9:50 AM) Blood Pressure [90-138/55-84 mm Hg] 111/ 75mm Hg (11/07/21 9:50 AM) Weight Obtained Via Standing scale (11/07/21 9:50 AM) Social History Social History Type Response Smoking Status Former smoker; Tobac co user in household: No; Type: Cigarettes; Other: 30 years, half a pack to less, quit 9 years ago; entered on: 10/01/17 Sex
--- OUTSIDE RECORDS SUMMARY | 2023-11-01 15:20 | XMS_ITS | Continuity of Care Document ---
Author Organization [facility] Address [address] [place] [address]- Care Team Providers Care Tack Driller Name Role Phone Devin NAYAK, Theresa Velásquez Primary Care Physic osei [facility] 07[facility] - 08/13/21 [facility] [address] [place] [address]- Attending Physician: Kellen Andrews Admitting Physician: AdmKellen garner Referring Physician: Admtr ArGurjit Allergies, Adverse Reactions, Alerts Substance Reaction Severity [...] Given 1Result Comment: [facility]: [address]-53 2Result Comment: [05/01/2018] [facility]# 96935-415-35 3Result Comment: [05/23/2017] [facility] 56606-590-24 Medications Biotin By Mouth, Daily, 0 Refills, [...] 06/23/20 8:51:00 EST, Route to Pharmacy Electronically, [facility]/pharmacy #[id number], 167, cm, 05/05/20 10:33:00 EST, Height, 78.3, kg, 01/02/20 10:47:00 EDT, Dry Weight Start Date: 06/23/20 Status: Ordered diclofenac sodium 75 mg oral delayed release tablet 1 tablet = 75 mg, By Mouth, Daily, # 30 tablet, 1 Refills, Maintenance, 05/23/21 17:56:00 EST, EC Tablet, [facility]/pharmacy #1893, 167, cm, 03/17/21 8:09:00 EDT, Height, 78.3, kg, 01/02/20 10:47:00 EDT, Dry Weight Start Date: 05/23/21 Status: Ordered Doculase 100 mg oral capsule 1 capsule = 100 mg, By Mouth, 2 times a day, PRN constipation, SOFT GELS. Take with water. Stop taking if loose stools/diarrhea., # 60 capsule, 1 Refills, Soft Stop, 09/28/20 8:49:00 EDT, Capsule, [facility]/pharmacy #1893, 167, cm, 09/09/20 11:32:00 EST, He... Start Date: 07/28/09 Stop Date: 09/23/21 Status: Ordered Flonase 50 mcg/inh nasal spray 2 sprays, Nares, Both, Daily, in each nostril, # 16 Gm, 5 Refills, Maintenance, 10/28/20 12:19:00 EDT, [facility]/pharmacy #1893, 2 sprays Nares, Both Daily,x30 days,Instr:in [...] a schedule II opioid drug., 167, cm, 09/16/21 8:09:00 E... Start Date: 03/21/21 Status: Ordered [...]
--- OUTSIDE RECORDS SUMMARY | 2023-11-01 15:21 | XMS_ITS | Continuity of Care Document ---
Author Organization [facility] Address [address] [place] [address]- Care Team Providers Care Mill Machinist Name Role Phone Devin NAYAK, Theresa Velásquez Primary Care Physic osei [facility] 06[facility] - 07/15/22 [facility] [address] [place] [address]- Allergies, Adverse Reactions, Alerts Substance Reaction Severity [...] 23-valent vaccine 07/13/09 Given 1Result Comment: [facility]: 51185-094-00 Bivalent Booster 2Result Comment: [facility]: [address]-58 3Result Comment: [facility]: 23167-055-46 4Result Comment: [05/01/2018] [facility]# 23400-411-80 5Result Comment: [05/23/2017] [facility] 62616-448-97 Medications aspirin 81 mg oral delayed release tablet 81 mg, 1, tablet, By Mouth, Daily, # 30 tablet, Refills 1, Tot. Refills 1, Maintenance, 12/02/21 15:56:00 EDT, Route to Pharmacy Electronically, [facility]/pharmacy #[id number], Partial fill upon patient request if the prescription is for a schedule II opioid drug... Start Date: 12/02/21 Stop Date: 01/31/22 Status: Ordered atorvastatin 40 mg oral tablet 1 tablet = 40 mg, By Mouth, Daily, # 90 tablet, 0 Refills, Maintenance, 11/25/21 17:35:00 EDT, Tablet, [facility]/pharmacy #1893, Partial fill upon [...] days, # 30 Gm, 1 Refills, Acute 07/21/22 10:56:00 EST, 07/07/22 10:56:00 EST, [place], [facility]/pharmacy #1893, Partial fill upon patient request if the prescription is for a schedule II opioid drug., 1 applicat... Start Date: 07/07/22 Stop Date: 07/21/22 Status: Ordered diclofenac sodium 75 mg oral delayed release tablet 1 tablet = 75 mg, By Mouth, Daily, # 30 tablet, 1 Refills, Maintenance, 05/23/21 17:56:00 EST, EC Tablet, [facility]/pharmacy #1893, 167, cm, 03/17/21 8:09:00 EDT, [...] 1 Refills, Maintenance, 11/29/21 11:57:00 EDT, Tablet, [facility]/pharmacy #1893, Partial fill upon [...] mL, 0 Refills, [facility], 30, TAKE 15 ML BY MOUTH 2 [...] Care Physician Member Role: PCP [facility]: [facility] [place] [address]- Name: Aleks ALEJANDRE, Margie Position: Reference Physician Member Role: Primary Care Nurse Address: Address: [address] [place] [address] [address] Clinical & [place] [address]- Care Team Related Persons Name: ECTOR MORFIN Name: CHLOE MORFIN Address: home [address] [place] [address]
--- OUTSIDE RECORDS SUMMARY | 2023-11-01 15:21 | XMS_ITS | Continuity of Care Document ---
Author Organization [facility] Address [address] [place] [address]- Care Team Providers Care Contract Paralegal Name Role Phone Devin NAYAK, Theresa Velásquez Primary Care Physic osei Encounter [facility] Date(s): 09/05/22 - 01/11/23 [facility] [address] [place] [address]- Attending Physician: Theresa Beltran MD Allergies, Adverse [...] pneumococcal 23-valent vaccine 07/13/09 Given 1Result Comment: [facility]: 12557-007-40 Bivalent Booster 2Result Comment: [facility]: [address]-91 3Result Comment: [facility]: 06318-306-01 4Result Comment: [05/01/2018] [facility]# 38793-070-40 5Result Comment: [05/23/2017] [facility] 60206-217-59 Medications calcium carbonate 600 mg oral tablet 2 tablet = 1,200 mg, By Mouth, Daily, 0 Refills, Maintenance, 10/01/17 10:10:25 EDT Start Date: 10/01/17 Status: Ordered Claritin 10 mg oral tablet 10 mg, 1, tablet, By Mouth, Daily, # 90 tablet, Refills 1, Tot. Refills 1, Maintenance, 06/23/20 8:51:00 EST, Route to Pharmacy Electronically, [facility]/pharmacy #1893, 167, cm, 05/05/20 10:33:00 EST, Height, 78.3, kg, 01/02/20 10:47:00 EDT, Dry Weight Start Date: 06/23/20 Status: Ordered cyclobenzaprine 10 mg oral tablet 10 mg, 1, tablet, By Mouth, 3 times a day, PRN, # 30 tablet, Refills 1, Tot. Refills 1, Maintenance, for spasm, 11/22/22 14:00:00 EDT, Route to Pharmacy Electronically, [facility]/pharmacy #1893, Partial fill [...] 5 Refills, Maintenance, 07/19/22 15:25:00 EST, Capsule, [facility]/pharmacy #1893, Partial fill upon patient r... Start Date: 07/19/22 Status: Ordered fluticasone 50 mcg/inh nasal spray 2 sprays, Nares, Both, 2 times a day, # 16 Gm, 3 Refills, Maintenance, 10/20/22 9:23:00 EDT, [place],[facility]/pharmacy #1893, Partial fill upon [...] 11/15/22 8:47:00 EDT, Route to Pharmacy Electronically, [facility]/pharmacy #1893, Partial fill upon patient request if the prescription is... Start Date: 11/15/22 Status: Ordered lactulose 10 gm/15 ml oral syrup 15 mL, By Mouth, 2 times a day, PRN NEEDED FOR CONSTIPATION, # 900 mL, 0 Refills, [facility] [address], 30, TAKE 15 ML BY MOUTH 2 TIMES A DAY, NEEDED FOR CONSTIPATION, 167, cm, 07/14/21 8:11:00 EST,Height, 78.3, kg, 01/02/20 10:47:00 EDT, Dry Weight Start Date: 09/16/21 Status: Ordered loratadine 10 mg oral tablet 10 mg, 1, tablet, By Mouth, Daily, # 90 tablet, Refills 1, Tot. Refills 1, Maintenance, 10/20/22 9:15:00 EDT, Route to Pharmacy Electronically, [facility]/pharmacy #1893, Partial fill [...] 0 Refills, Soft Stop, 11/15/22 15:37:00 EDT, [facility]/pharmacy #1893, 168, cm, 11/07/22 13:21:00 EDT, Height, [...] Primary Care Member Role: PCP Address: Address: [address] [place] [address]- Name: Margie Fink NP Position: Reference Physician Member Role: Primary Care Nurse Address: Address: [address] [place] [address] [address] Clinical & [place] [address]- Care Team Related Persons Name: ECTOR MORFIN Name: CHLOE MORFIN Address: home [address] [place] [address]
--- OUTSIDE RECORDS SUMMARY | 2023-11-01 15:21 | XMS_ITS | Continuity of Care Document ---
Author Organization [facility] Address [address] [place] [address]- Care Team Providers Care Cpc Coder Name Role Phone Devin NAYAK, Theresa Velásquez Primary Care Physic osei [facility] Date[facility]): 02[facility] - 03/07/20 [facility] [address] [place] [address]- [facility] Allergies, Adverse Reactions, Alerts Substance Reaction Severity [...] 1Result Comment: [05/01/2018] [facility]# 86257-976-41 2Result Comment: [05/23/2017] [facility] 45896-615-07 Medications Biotin By Mouth, Daily, 0 Refills, [...] 02/06/19 14:33:11 EDT, Route to Pharmacy Electronically, [id number], [facility]/pharmacy #[id number] Start Date: 02/06/19 Status: Ordered Claritin 10 mg oral tablet 10 mg, 1, tablet, By Mouth, Daily, # 30 tablet, Refills 5, Tot. Refills 5, Maintenance, 10/02/19 11:18:00 EDT, Route to Pharmacy Electronically, [facility]/pharmacy #[id number], 167, cm, 02/20/19 13:00:00 EDT, Height, 72.7, kg, 02/20/19 13:00:00 EDT, Dry Weight Start Date: 10/02/19 Status: Ordered diclofenac sodium 75 mg oral delayed release tablet 1 tablet = 75 mg, By Mouth, Daily, # 30 tablet, 0 Refills, Maintenance, 02/06/20 17:30:00 EDT, EC Tablet, [facility]/pharmacy #[id number], 167, cm, 01/02/20 10:47:00 EDT, Height, 78.3, kg, 01/02/20 10:47:00 EDT, Dry Weight Start Date: 02/06/20 Status: Ordered Diflucan 150 mg oral tablet 1 tablet = 150 mg, By Mouth, Once, # 1 tablet, 0 Refills, Soft Stop, 01/08/20 14:33:00 EDT, Tablet,[facility]/pharmacy #[id number], 167, cm, 01/02/20 10:47:00 EDT, Height, 78.3, kg, 01/02/20 10:47:00 EDT, Dry Weight Start Date: 01/08/20 Status: Ordered Doculase 100 mg oral capsule 1 capsule = 100 mg, By Mouth, 2 times a day, PRN constipation, SOFT GELS. Take with water. Stop taking if loose stools/diarrhea., # 60 capsule, 11 Refills, Soft Stop, 08/19/19 9:43:00 EST, Capsule, [facility]/pharmacy #[id number], 167, cm, 02/20/19 13:00:00 [...] MOUTH 2 TIMES A DAY, [facility]/pharmacy #[id number] Start Date: 05/01/19 Status: [...] 0 Refills, Soft Stop, 12/03/19 12:28:00 EDT, [facility]/pharmacy #[id number], 167, cm, 02/20/19 13:00:00 [...]
--- OUTSIDE RECORDS SUMMARY | 2023-11-01 15:21 | XMS_ITS | Continuity of Care Document ---
Author Organization [facility] Alex srikanth Address [address] [place] [address] [address] [place] [address]- Care Team Providers Care Information Systems Specialist Name Role Phone Devin NAYAK, Theresa Velásquez Primary Care Physic osei Encounter [facility] Date(s): 03/28/22 - 04/04/22 [facility] [address] [place] [address]- Attending Physician: Tim Cutler MD Referring Physician: [...] pneumococcal 23-valent vaccine 07/13/09 Given 1Result Comment: [facility]: [id number] 2Result Comment: [05/01/2018] [facility]# [id number] 3Result Comment: [05/23/2017] [facility] [id number] Medications aspirin 81 mg oral delayed release tablet 81 mg, 1, tablet, By Mouth, Daily, # 30 tablet, Refills 1, Tot. Refills 1, Maintenance, 12/02/21 15:56:00 EDT, Route to Pharmacy Electronically, [facility]/pharmacy #[id number], Partial fill upon patient request if the prescription is for a schedule II opioid drug... Start Date: 12/02/21 Stop Date: 01/31/22 Status: Ordered atorvastatin 40 mg oral tablet 1 tablet = 40 mg, By Mouth, Daily, # 90 tablet, 0 Refills, Maintenance, 11/25/21 17:35:00 EDT, Tablet, [facility]/pharmacy #[id number], Partial fill upon [...] 8:51:00 EST, Route to Pharmacy Electronically, [facility]/pharmacy #[id number], 167, cm, 05/05/20 10:33:00 EST, Height, 78.3, kg, 01/02/20 10:47:00 EDT, Dry Weight Start Date: 06/23/20 Status: Ordered diclofenac sodium 75 mg oral delayed release tablet 1 tablet = 75 mg, By Mouth, Daily, # 30 tablet, 1 Refills, Maintenance, 05/23/21 17:56:00 EST, EC Tablet, [facility]/pharmacy #[id number], 167, cm, 03/17/21 8:09:00 EDT, [...] mL, 0 Refills, [facility] STORE [id number], 30, TAKE 15 ML BY MOUTH 2 [...] 0 Refills, Soft Stop, 12/30/21 13:55:00 EDT, [facility]/pharmacy #[id number], 168, cm, 12/06/21 8:17:00 EDT, [...] oldest [Reference Range]: 1 Height 168 cm (03/28/22 9:43 AM) Weight 73.2 kg (03/28/22 9:43 AM) Body Mass Index [18.5-24.99 kg/m2] 25.94 kg/m2 *H* (03/28/22 9:43 AM) Dry Weight 73.2 kg (03/28/22 9:43 AM) Weight Obtained Via Standing scale (03/28/22 9:43 AM) Dry Weight Obtained Via Standing scale (03/28/22 9:43 AM) Social History Social History Type Response Smoking Status Former smoker; Tobac co user in household: No; Type: Cigarettes; Other: 30 years, half a pack to less, quit 9 years ago; entered on: 10/01/17 Sex Patient Care team information Personnel Name: Devin NAYAK, Theresa Velásquez Address: Address: [address] [place] [address]
--- OUTSIDE RECORDS SUMMARY | 2023-11-01 15:21 | XMS_ITS | Continuity of Care Document ---
Author Organization [facility] Address [address] [place] [address]- Care Team Providers Care Booster Pump Oiler Name Role Phone Devin NAYAK, Theresa Velásquez Primary Care Physic osei [facility] Date[facility]s): 11/25/21 - 12/25/21 [facility] [address] [place], [place] [address] Allergies, Adverse Reactions, Alerts [...] 23-valent vaccine 07/13/09 Given 1Result Comment: [facility]: [id number] 2Result Comment: [05/01/2018] [facility]# [id number] 3Result Comment: [05/23/2017] [facility] [id number] Medications aspirin 81 mg oral delayed release tablet 81 mg, 1, tablet, By Mouth, Daily, # 30 tablet, Refills 1, Tot. Refills 1, Maintenance, 12/02/21 15:56:00 EDT, Route to Pharmacy Electronically, [facility]/pharmacy #[id number], Partial fill upon patient request if the prescription is for a schedule II opioid drug... Start Date: 12/02/21 Stop Date: 01/31/22 Status: Ordered atorvastatin 40 mg oral tablet 1 tablet = 40 mg, By Mouth, Daily, # 90 tablet, 0 Refills, Maintenance, 11/25/21 17:35:00 EDT, Tablet, [facility]/pharmacy #[id number], Partial fill upon patient request [...] 8:51:00 EST, Route to Pharmacy Electronically, [facility]/pharmacy #[id number], 167, cm, 05/05/20 10:33:00 EST, Height, 78.3, kg, 01/02/20 10:47:00 EDT, Dry Weight Start Date: 06/23/20 Status: Ordered diclofenac sodium 75 mg oral delayed release tablet 1 tablet = 75 mg, By Mouth, Daily, # 30 tablet, 1 Refills, Maintenance, 05/23/21 17:56:00 EST, EC Tablet, [facility]/pharmacy #[id number], 167, cm, 03/17/21 8:09:00 EDT, Height, 78.3, kg, 01/02/20 10:47:00 EDT, Dry Weight Start Date: 05/23/21 Status: Ordered Doculase 100 mg oral capsule 1 capsule = 100 mg, By Mouth, 2 times a day, PRN constipation, SOFT GELS. Take with water. Stop taking if loose stools/diarrhea., # 60 capsule, 1 Refills, Soft Stop, 09/28/20 8:49:00 EDT, Capsule, [facility]/pharmacy #1893, 167, cm, 09/09/20 11:32:00 EST, He... Start Date: 07/28/09 Stop Date: 09/23/21 Status: Ordered docusate sodium 100 mg oral capsule 1 capsule = 100 mg, By Mouth, 2 times a day, PRN for constipation, SOFT GELS. Take with water. Stoptaking if loose stools/diarrhea., # 60 capsule, 5 Refills, Maintenance, 12/07/21 10:34:00 EDT, Capsule, [facility]/pharmacy #1893, Partial fill upon patient r... Start Date: 12/07/21 Status: Ordered Eliquis 5 mg oral tablet 1 tablet = 5 mg, By Mouth, 2 times a day, # 60 tablet, 1 Refills, Maintenance, 11/29/21 11:57:00 EDT, Tablet, [facility]/pharmacy #[id number], Partial fill upon patient request [...] CONSTIPATION, # 900 mL, 0 Refills, [facility] 27593, 30, TAKE 15 ML BY MOUTH 2 [...] 0 Refills, Soft Stop, 07/21/21 8:42:00 EST, [facility]/pharmacy #[id number], 167, cm, 07/14/21 8:11:00 EST, [...] 0 Refills, Maintenance, 03/21/21 13:47:00 EDT, Capsule, [facility]/pharmacy #1893, Partial fill upon patient request [...]
--- OUTSIDE RECORDS SUMMARY | 2023-11-01 15:21 | XMS_ITS | Continuity of Care Document ---
Author Organization [facility] Address [address] [place] [address]- Care Team Providers Care Commission Specialist Name Role Phone Devin NAYAK, Theresa Velásquez Primary Care Physic osei [facility] Date(s): 11/22/22 - 12/22/22 [facility] [address] [place] [address]- Allergies, Adverse Reactions, Alerts Substance Reaction Severity [...] 23-valent vaccine 07/13/09 Given 1Result Comment: [facility]: 93738-833-36 Bivalent Booster 2Result Comment: [facility]: [address]-94 3Result Comment: [facility]: [id number] 4Result Comment: [05/01/2018] [facility]# [id number] 5Result Comment: [05/23/2017] [facility] 16027-568-03 Medications calcium carbonate 600 mg oral tablet 2 tablet = 1,200 mg, By Mouth, Daily, 0 Refills, Maintenance, 10/01/17 10:10:25 EDT Start Date: 10/01/17 Status: Ordered Claritin 10 mg oral tablet 10 mg, 1, tablet, By Mouth, Daily, # 90 tablet, Refills 1, Tot. Refills 1, Maintenance, 06/23/20 8:51:00 EST, Route to Pharmacy Electronically, [facility]/pharmacy #[id number], 167, cm, 05/05/20 10:33:00 EST, Height, 78.3, kg, 01/02/20 10:47:00 EDT, Dry Weight Start Date: 06/23/20 Status: Ordered cyclobenzaprine 10 mg oral tablet 10 mg, 1, tablet, By Mouth, 3 times a day, PRN, # 30 tablet, Refills 1, Tot. Refills 1, Maintenance, for spasm, 11/22/22 14:00:00 EDT, Route to Pharmacy Electronically, [facility]/pharmacy #[id number], Partial fill upon patient request if the prescription is for a... Start Date: 11/22/22 Status: Ordered Doculase 100 mg oral capsule 1 capsule = 100 mg, By Mouth, 2 times a day, PRN constipation, SOFT GELS. Take with water. Stop taking if loose stools/diarrhea., # 60 capsule, 1 Refills, Soft Stop, 09/28/20 8:49:00 EDT, Capsule, [facility]/pharmacy #[id number], 167, cm, 09/09/20 11:32:00 EST, He... Start Date: 07/28/09 Stop Date: 09/23/21 Status: Ordered docusate sodium 100 mg oral capsule 1 capsule = 100 mg, By Mouth, 2 times a day, PRN for constipation, SOFT GELS. Take with water. Stoptaking if loose stools/diarrhea., # 60 capsule, 5 Refills, Maintenance, 07/19/22 15:25:00 EST, Capsule, [facility]/pharmacy #[id number], Partial fill upon patient r... Start Date: 07/19/22 Status: Ordered fluticasone 50 mcg/inh nasal spray 2 sprays, Nares, Both, 2 times a day, # 16 Gm, 3 Refills, Maintenance, 10/20/22 9:23:00 EDT, [place],[facility]/pharmacy #1893, Partial fill upon patient request [...] 11/15/22 8:47:00 EDT, Route to Pharmacy Electronically, [facility]/pharmacy #[id number], Partial fill upon patient request if the prescription is... Start Date: 11/15/22 Status: Ordered lactulose 10 gm/15 ml oral syrup 15 mL, By Mouth, 2 times a day, PRN NEEDED FOR CONSTIPATION, # 900 mL, 0 Refills, [facility] ST[facility] 14442, 30, TAKE 15 ML BY MOUTH 2 TIMES A DAY, NEEDED FOR CONSTIPATION, 167, cm, 07/14/21 8:11:00 EST,Height, 78.3, kg, 01/02/20 10:47:00 EDT, Dry Weight Start Date: 09/16/21 Status: Ordered loratadine 10 mg oral tablet 10 mg, 1, tablet, By Mouth, Daily, # 90 tablet, Refills 1, Tot. Refills 1, Maintenance, 10/20/22 9:15:00 EDT, Route to Pharmacy Electronically, [facility]/pharmacy #[id number], Partial fill upon patient request [...] 12/29/22 23:00:00 EDT, 10/20/22 9:26:00 EDT, [place], [facility]/pharmacy #[id number], Partial fill upon patientrequest if [...] Personnel Name: Devin NAYAK, Theresa Velásquez Position: [facility] Physician - Primary Care Member Role: PCP Address: Address: [address] [place] [address]- Name: Aleks ALEJANDRE, Margie Position: Reference Physician Member Role: Primary Care Nurse Address: Address: [address] [place] [address] [address] Clinical & [place] [address]- Care Team Related Persons Name: ECTOR MORFIN Name: CHLOE MORFIN Address: home [address] [place] [address]
--- OUTSIDE RECORDS SUMMARY | 2023-11-01 15:21 | XMS_ITS | Continuity of Care Document ---
Author Organization [facility] Address [address] [place] [address]- Care Team Providers Care Straw Hat Washer Operator Name Role Phone Devin NAYAK, Theresa Velásquez Primary Care Physic osei [facility] Date[facility]s): 12/02/21 - 01/01/22 [facility] [address] [place] [address]- Attending Physician: Admtr, Kellen Admitting Physician: Admtr, [id number] Referring Physician: Admtr, [...] Comment: [facility]: [id number] 2Result Comment: [05/01/2018] [facility]# [id number] 3Result Comment: [05/23/2017] [facility] [id number] Medications aspirin 81 mg oral delayed release [...] 5 Refills, Maintenance, 12/07/21 10:34:00 EDT, Capsule, [facility]/pharmacy #[id number], Partial fill upon patient r... Start Date: 12/07/21 Status: Ordered Eliquis 5 mg oral tablet 1 tablet = 5 mg, By Mouth, 2 times a day, # 60 tablet, 1 Refills, Maintenance, 11/29/21 11:57:00 EDT, Tablet, [facility]/pharmacy #[id number], Partial fill [...] 900 mL, 0 Refills, [facility] [address]90, 30, TAKE 15 ML BY MOUTH 2 [...] 0 Refills, Maintenance, 03/21/21 13:47:00 EDT, Capsule, [facility]/pharmacy #1893, Partial fill upon patient [...]
--- OUTSIDE RECORDS SUMMARY | 2023-11-01 15:21 | XMS_ITS | Continuity of Care Document ---
Author Organization [facility] Address [address] [place] [address]- Care Team Providers Care Port Drier Name Role Phone Devin NAYAK, Theresa Velásquez Primary Care Physic osei Encounter [facility] Date(s): 08/17/23 - 08/24/23 [facility] [address] [place] [address]- Encounter Diagnosis Right wrist pain(Discharge Diagnosis) - 08/17/23 Fracture of right ulnar styloid(Discharge Diagnosis) - 08/17/23 Unspecified fracture of the lower end of right radius, initial encounter for closed fracture(Discharge Diagnosis) - 08/17/23 Attending Physician: Ulisses ALEJANDRE, Hemalatha Gonsalves Allergies, Adverse Reactions, Alerts Substance Reaction Severity [...] Given 1Result Comment: [facility]: 28083-344-21 Bivalent Booster 2Result Comment: [facility]: [address]-32 3Result Comment: [facility]: 59206-899-56 4Result Comment: [05/01/2018] [facility]# 88193-397-20 5Result Comment: [05/23/2017] [facility] 94576-424-69 Medications calcium carbonate 600 mg oral tablet [...] 1 Refills, Soft Stop, 06/11/23 17:25:00 EST, [facility]pharmacy #[id number], Partial fill upon patient request if the prescription is for a schedule II opioid drug., 168, cm, 01/17/23 10:21:00 EDT, Height, 73.2, kg,... Start Date: 06/11/23 Status: Ordered fluticasone 50 mcg/inh nasal spray 2 sprays, Nares, Both, Daily, # 16 Gm, 3 Refills, Maintenance, 07/20/23 15:17:00 EST, [place], [facility]/pharmacy #[id number], Partial fill upon [...] 11/15/22 8:47:00 EDT, Route to Pharmacy Electronically, [id number], [...] mL, 0 Refills, [facility] 24832, 30, TAKE 15 ML BY MOUTH 2 [...] Effective Dates Health Status Clinical Service Informant Right wrist pain Discharge Diagnosis 08/17/23 Unspecified fracture of the lower end of right radius, initial encounter for closed fracture Discharge Diagnosis 08/17/23 Fracture of right ulnar styloid Discharge Diagnosis 08/17/23 Vital Signs Most recent to oldest [Reference Range]: 1 2 Height 168 cm (08/17/23 9:55 AM) 168 cm (08/17/23 9:50 AM) Oxygen Saturation [94-100 %] 98 % (08/17/23 9:50 AM) Pulse Rate [55-90 bpm] 71 bpm (08/17/23 9:50 AM) Blood Pressure [90-138/55-84 mm Hg] 148/ 87mm Hg *H* (08/17/23 9:55 AM) 148/85mm Hg *H* (08/17/23 9:50 AM) Mode of Delivery (Oxygen) Room air (08/17/23 9:50 AM) Blood pressure sites Arm, left (08/17/23 9:55 AM) Arm, left (08/17/23 9:50 AM) Social History Social History Type Response Smoking Status Former smoker; Tobac co user in household: No; Type: Cigarettes; Other: 30 years, half a pack to less, quit 9 years ago; entered on: 10/01/17 Sex Patient Care team information Care Team Personnel Name: Devin NAYAK, Theresa Velásquez Position: [facility] Physician - Primary Care Member Role: PCP Address: Address: [address] [place] [id number]- Name: Margie Fink NP Position: Reference Physician Member Role: Primary Care Nurse Address: Address: [address] [place] [address] [address] Clinical & [place] [address]- Care Team Related Persons Name: ECTOR MORFIN Name: CHLOE MORFIN Address: home [address] [place] [address]
--- OUTSIDE RECORDS SUMMARY | 2023-11-01 15:21 | XMS_ITS | Continuity of Care Document ---
Author Organization [facility] ter Address [address] [place] [address]- Care Team Providers Care Patient Representative Name Role Phone Devin NAYAK, Theresa Velásquez Primary Care Physic osei [facility]counter [facility] Date(s): 12/06/21 - 12/06/[address] [address]- Discharge Disposition: A-D/C Home Attending Physician: Arturo [...] pneumococcal 23-valent vaccine 07/13/09 Given 1Result Comment: [facility]: [address]-67 2Result Comment: [05/01/2018] [facility]# [id number] 3Result Comment: [05/23/2017] [facility] 50122-660-64 Medications aspirin 81 mg oral delayed release tablet 81 mg, 1, tablet, By Mouth, Daily, # 30 tablet, Refills 1, Tot. Refills 1, Maintenance, 12/02/21 15:56:00 EDT, Route to Pharmacy Electronically, [facility]/pharmacy #[id number], Partial fill upon patient request if [...] Route to Pharmacy Electronically, [facility]/pharmacy #1893, 167, cm, 05/05/20 10:33:00 EST, Height, 78.3, kg, 01/02/20 10:47:00 EDT, Dry Weight Start Date: 06/23/20 Status: Ordered clotrimazole 1% topical cream 1 application, Topically, 2 times a day, for 7 days, # 30 Gm, 1 Refills, Acute 12/16/21 15:56:00 EDT, 12/02/21 15:56:00 EDT, Cream, [facility]/pharmacy #1893, Partial fill upon patient request if the prescription is for a schedule II opioid drug., 1 applicat... Start Date: 12/02/21 Stop Date: 12/16/21 Status: Ordered diclofenac sodium 75 mg oral delayed release tablet 1 tablet = 75 mg, By Mouth, Daily, # 30 tablet, 1 Refills, Maintenance, 05/23/21 17:56:00 EST, EC Tablet, [facility]/pharmacy #1893, 167, cm, 03/17/21 8:09:00 EDT, Height, 78.3, kg, 01/02/20 10:47:00 EDT, Dry Weight Start Date: 05/23/21 Status: Ordered Doculase 100 mg oral capsule 1 capsule = 100 mg, By Mouth, 2 times a day, PRN constipation, SOFT GELS. Take with water. Stop taking if loose stools/diarrhea., # 60 capsule, 1 Refills, Soft Stop, 09/28/20 8:49:00 EDT, Capsule, [facility]/pharmacy #1893, 167, cm, 09/09/20 11:32:00 EST, He... Start Date: 07/28/09 Stop Date: 09/23/21 Status: Ordered Eliquis 5 mg oral tablet 1 tablet = 5 mg, By Mouth, 2 times a day, # 60 tablet, 1 Refills, Maintenance, 11/29/21 11:57:00 EDT, Tablet, [facility]/pharmacy #1893, Partial fill upon patient request if the prescription is for a schedule II opioid drug., 167, cm, 11/07/21 9:50:00 EDT, H... Start Date: 11/29/21 Status: Ordered Flonase 50 mcg/inh nasal spray 2 sprays, Nares, Both, Daily, in each nostril, # 16 Gm, 5 Refills, Maintenance, 10/28/20 12:19:00 EDT, [facility]/pharmacy #1893, 2 sprays Nares, Both Daily,x30 days,Instr:in [...] 900 mL, 0 Refills, [facility] [address]2338, 30, TAKE 15 ML BY MOUTH 2 [...] Stop, 07/21/21 8:42:00 EST, [facility]/pharmacy #1893, 167, cm, 07/14/21 8:11:00 EST, Height, [...] Refills, Maintenance, 03/21/21 13:47:00 EDT, Capsule, [id number], Partial fill upon patient request if the [...] oldest [Reference Range]: 1 2 3 Height 168 cm (12/06/21 7:33 AM) 168 cm (12/06/21 7:33 AM) Weight 69.5 kg (12/06/21 7: AM) 69.5 kg (12/06/21 7: AM) Oxygen Saturation [94-100 %] 98 % (12/06/21 2:00 PM) 87 % *L* (12/06/21 1:30 PM) 98 % (12/06/21 1:00 PM) Pulse Rate [55-90 bpm] 56 bpm (12/06/21 7:33 AM) Body Mass Index [18.5-24.99] 24.62 (12/06/21 7:33 AM) Blood Pressure [90-138/55-84 mm Hg] 121/71mm Hg (12/06/21 2:00 PM) 115/75mm Hg (12/06/21 1:30 PM) 125/72mm Hg (12/06/21 1:00 PM) Respiratory Rate [16-30 br/min] 14 br/min *L* (12/06/21 2:00 PM) 11 br/min *L* (12/06/21 1:30 PM) 11 br/min *L* (12/06/21 1:00 PM) Temperature [96.8-100.4 DegF] 97.3 DegF (12/06/21 11:00 AM) 97.1 DegF (12/06/21 7:33 AM) Mode of Delivery (Oxygen) Room air (12/06/21 2:00 PM) Room air (12/06/21 1:30 PM) Room air (12/06/21 1:00 PM) Blood pressure sites Arm, left (12/06/21 2:00 PM) Arm, left (12/06/21 1:30 PM) Arm, left (12/06/21 1:00 PM) Temperature Route Temporal (12/06/21 11:00 AM) Temporal (12/06/21 7:33 AM) Dry Weight 69.5 kg (12/06/21 7:33 AM) 69.5 kg (12/06/21 7:33 AM) Weight Obtained Via Standing scale (12/06/21 7:33 AM) Standing scale (12/06/21 7:33 AM) Dry Weight Obtained Via Standing scale (12/06/21 7:33 AM) Standing scale (12/06/21 7:33 AM) Social History Social History Type Response Smoking Status Former smoker; Tobac co user in household: No; Type: Cigarettes; Other: 30 years, half a pack to less, quit 9 years ago; entered on: 10/01/17 Sex
--- OUTSIDE RECORDS SUMMARY | 2023-11-01 15:21 | XMS_ITS | Continuity of Care Document ---
Author Organization [facility] Address [address] [place] [address]- Care Team Providers Care Piano Mechanic Name Role Phone Devin NAYAK, Theresa Velásquez Primary Care Physic osei Encounter [facility] Date(s): 03/17/21 - 03/24/21 [facility] [address] [place] [address]- [place] Encounter Diagnosis Bee sting reaction(Discharge Diagnosis) - 03/17/21 Localized osteoarthritis of left knee(Discharge Diagnosis) - 03/17/21 Attending Physician: Devin NAYAK, Theresa Velásquez Allergies, [...] 23-valent vaccine 07/13/09 Given 1Result Comment: [05/01/2018] [facility][NOTE 3]# [id number] 2Result Comment: [05/23/2017] [facility][NOTE 3] [id number] Medications Biotin By Mouth, Daily, 0 Refills, [...] 02/06/19 14:33:11 EDT, Route to Pharmacy Electronically, [id number], [facility]/pharmacy #[id number] Start Date: 02/06/19 Status: Ordered Claritin 10 mg oral tablet 10 mg, 1, tablet, By Mouth, Daily, # 90 tablet, Refills 1, Tot. Refills 1, Maintenance, 06/23/20 8:51:00 EST, Route to Pharmacy Electronically, [facility]/pharmacy #[id number], 167, cm, 05/05/20 10:33:00 EST, Height, 78.3, kg, 01/02/20 10:47:00 EDT, Dry Weight Start Date: 06/23/20 Status: Ordered diclofenac sodium 75 mg oral delayed release tablet 1 tablet = 75 mg, By Mouth, Daily, # 30 tablet, 1 Refills, Maintenance, 04/23/20 13:21:00 EDT, EC Tablet, [facility]/pharmacy #[id number], 167, cm, 01/02/20 10:47:00 EDT, Height, 78.3, kg, 01/02/20 10:47:00 EDT, Dry Weight Start Date: 04/23/20 Status: Ordered Doculase 100 mg oral capsule 1 capsule = 100 mg, By Mouth, 2 times a day, PRN constipation, SOFT GELS. Take with water. Stop taking if loose stools/diarrhea., # 60 capsule, 1 Refills, Soft Stop, 09/28/20 8:49:00 EDT, Capsule, [facility]/pharmacy #[id number], 167, cm, 09/09/20 11:32:00 EST, He... Start Date: 07/28/09 Stop Date: 09/23/21 Status: Ordered docusate sodium 100 mg oral capsule 1 capsule = 100 mg, By Mouth, 2 times a day, PRN for constipation, SOFT GELS. Take with water. Stoptaking if loose stools/diarrhea., # 60 capsule, 5 Refills, Maintenance, 12/21/20 10:19:00 EDT, Capsule, [facility]/pharmacy #[id number], Partial fill upon patient r... Start Date: 12/21/20 Status: Ordered Fish Oil By Mouth, 0 Refills, Maintenance, 01/01/20 15:41:00 EDT Start Date: 01/01/20 Status: Ordered Flonase 50 mcg/inh nasal spray 2 sprays, Nares, Both, Daily, in each nostril, # 16 Gm, 5 Refills, Maintenance, 10/28/20 12:19:00 EDT, [facility]/pharmacy #[id number], 2 sprays Nares, [...] ML BY MOUTH 2 TIMES A DAY, [facility]/pharmacy #[id number] Start Date: 05/01/19 [...] Effective Dates Health Status Clinical Service Informant Bee sting reaction Discharge Diagnosis 9/16/21 Localized osteoarthritis of left knee Discharge Diagnosis 03/17/21 Vital Signs Most recent to oldest [Reference Range]: 1 2 Height 167 cm (03/17/21 8:09 AM) 167 cm (03/17/21 7:52 AM) Pulse Rate [55-90 bpm] 80 bpm (03/17/21 7:52 AM) Blood Pressure [90-138/55-84 mm Hg] 130/ 88mm Hg (03/17/21 8:09 AM) 140/82mm Hg *H* (03/17/21 7:52 AM) Blood pressure sites Arm, right (03/17/21 7:52 AM) Social History Social History Type Response Smoking Status Former smoker; Tobac co user in household: No; Type: Cigarettes; Other: 30 years, half a pack to less, quit 9 years ago; entered on: 10/01/17 Sex
[2023-11-01 15:47] VITALS: BMI 21.9
[2023-11-01 15:58] VITALS: BP 128/78; PULSE 100; RESP 16; TEMP 36.5; O2SAT 97
--- NOTE | 2023-11-01 17:06 | PC.NURSE ---
Addendum entered by Brittani Newman RN 11/01/23 17:44: Patient presenting at this time as pleasantly confused. Alert and oriented x2. Making statements that she had just finished dancing and wanted to go home. Patient taken to her room where she asked, where will I be sleeping tonight. what am I here for anyhow? Original Note: Patient arrived on unit via stretcher at 1520 having signed CV. Transfer from [facility] where she had been admitted on 10/09/23 with depression and suicidal ideation. Patient endorsed experiencing low mood, anxiety, suicidal thoughts and auditory hallucinations. Symptoms increased in weeks prior to admission as a result of R arm fracture/surgery. While at [facility] patient reportedly was experiencing psychotic delusions, confusion, paranoia and auditory hallucinations. Patient presents as alert and oriented to person, place and time.Patient presented as calm and cooperative. Attired in [facility]. Neatly groomed. Wearing glasses. Able to participate adequately in admission process. During admission interview patient noted to be experiencing auditory hallucinations asking TW Why did you just tell me to fuck off. VSS. Height and weight obtained. Oriented to unit. Ambulating independently. Reports she feels safe on unit.
[2023-11-01 20:00] VITALS: BP 134/69; PULSE 94; RESP 16; TEMP 36.4; O2SAT 95
--- NOTE | 2023-11-02 08:00 | ECG_ITS ---
Test Reason : preop, hx chest pain Blood Pressure : / mmHG Vent. Rate : 079 BPM Atrial Rate : 079 BPM P-R Int : 112 ms QRS Dur : 068 ms QT Int : 378 ms P-R-T Axes : 052 -08 -06 degrees QTc Int : 433 ms Normal sinus rhythm Normal ECG When compared with ECG of 24-OCT-2021 18:16, Non-specific change in ST segment in Inferior leads Nonspecific T wave abnormality now evident in Inferior leads Referred By: Phillip Rangel Electronically Signed By:MARI ROTHMAN
[2023-11-02 09:20] VITALS: BP 122/72; PULSE 82; RESP 17; TEMP 36.6; O2SAT 100
--- NOTE | 2023-11-02 09:27 | P.HPPS_ITS ---
HPI Date of Service: 11/02/23 Chief Complaint: Bipolar disorder depressed with psychotic features Sources of Information: patient interviewed and chart reviewed Additional Sources of Information: Case reviewed with Dr. Vazquez and Dr. Hopkins [facility] records reviewed from [facility] Patient seen and evaluated 10:00 HPI Subjective Notes: Gambino Warning and Conditional Voluntary Healthcare Proxy: Yes Narrative: The patient is a 68-year-old female with a history of recurrent depression reportedly responsive to ECT in the past. She was admitted to [facility] he has become progressively more depressed with intrusive hallucinations at times feeling like she deserves to . She did not respond to treatment with citalopram which was discontinued and Cymbalta caused increased agitation and psychosis. Patient became more withdrawn and was started on lorazepam catatonia. A cardiology consult was obtained prior to tra nsfer with the expectation of ECT because of chest pain post ECT during the patient's last hospitalization at [facility] in 2021. The patient's hospital television rental clerk Dr. Peguero did not feel that there was a contraindication. The patient had been continued on gabapentin for restless legs she has chronically been on Seroquel but has broken through that now on a few occasions the patient's sister is her healthcare proxy and has been involved in her care Prior to admission [facility] patient was taking 850 mg of Seroquel Flexeril 10 mg 3 times a day as needed Lunesta 1 mg at bedtime gabapentin 1200 mg at bedtime ibuprofen 600 mg 4 times a day the patient was tried on Pristiq duloxetine citalopram Please see extensive records from [facility] Past Psychiatric History: Patient does have a history of suicide attempt by overdose in the past. She was treated here in 2021 did develop catatonia with paranoia she was treated ECT which was eventually held because of chest pain although there were no acute findings -Psych provider is Abida Salazar in [place] -Per sister, pt has had depression since her early 20s and has suffered from unspecified chronic pain, surgeries. -Hx of multiple psych admissions to [facility] Medical Evaluation Reviewed: Yes [facility] Medical History (Updated 11/02/23 @ 22:02 by Phillip Rangel MD) History of skin cancer Hx of bladder problems VITO (generalized anxiety disorder) Murmur, cardiac Hx of thyroid nodule Osteopenia Hx of skin cancer, basal cell Seasonal allergies Insomnia Constipation GERD (gastroesophageal reflux disease) Anxiety History of electroconvulsive therapy Bipolar 1 disorder Surgical History (Updated 01/27/22 @ 08:00 by PING Bowie) Hx of colonoscopy H/O elbow surgery History of back surgery Family History: -Depression. In 1998 her great grandfather hung himself. Social History: -Pt has never been , no children. One dog -Pt's mother (age 88), sister, and brother are involved with pt's care. -She graduated h.s. And has bachelors in psychology. She worked at [employer]. Diagnostics Vital Signs (24Hr): Vital Signs - 24 hr 11/01/23 15:58 11/01/23 20:00 11/02/23 09:20 Temperature 97.7 F 97.6 F 98 F Pulse Rate 100 94 82 Respiratory Rate 16 16 17 Blood Pressure 128/78 134/69 122/72 Pulse Oximetry 97 95 100 Oxygen Delivery Method Room Air Room Air Room Air BMI result Body Mass Index 21.9 Meds/Allergies Meds Home Medications ?Medication ?Instructions ?Recorded ?Confirmed ?Type omeprazole 20 mg capsule,delayed 20 mg PO BID 05/09/21 11/01/23 History release docusate sodium 100 mg capsule 1 cap PO BID 07/21/21 11/01/23 History loratadine 10 mg tablet (Claritin) 10 mg PO DAILY PRN Allergy Symptoms 07/21/21 11/01/23 History acetaminophen 325 mg tablet 650 mg PO Q6H PRN Fever Or Pain 09/08/21 11/01/23 History gabapentin 400 mg capsule 1,200 mg PO BEDTIME 01/25/22 11/01/23 History citalopram 20 mg tablet 20 mg PO DAILY 11/01/23 11/01/23 History cyclobenzaprine 10 mg tablet 10 mg PO TID PRN muscle spasm 11/01/23 11/01/23 History eszopiclone 3 mg tablet 3 mg PO BEDTIME 11/01/23 11/01/23 History ibuprofen 600 mg tablet 600 mg PO TID 11/01/23 11/01/23 History lorazepam 2 mg tablet 2 mg PO TID 11/01/23 11/01/23 History oxycodone 5 mg capsule 2.5 mg PO Q8H PRN Severe Pain 11/01/23 11/01/23 History (Scale Score 7-10) quetiapine 400 mg tablet 800 mg PO BEDTIME 11/01/23 11/01/23 History Allergies Allergies Allergy/AdvReac Type Severity Reaction Status Date / Time bee pollen Allergy Severe Anaphylaxis Verified 01/25/22 15:16 levofloxacin [From Levaquin] Allergy Severe Itching Verified 01/25/22 15:16 enoxaparin [From Lovenox] Allergy Intermediate Rash Verified 01/25/22 15:16 Penicillins Allergy Unknown Unknown Verified 01/25/22 15:16 Seasonal Allergies Allergy Runny Nose Verified 01/25/22 15:16 venlafaxine [From Effexor] Allergy Constipatio Verified 01/25/22 15:16 n Mental Status Exam Mental Status Exam Narrative: Appearance: wearing hospital gown, in bed, anxious Behavior: fairly cooperative Psychomotor: Retarded Speech: clear, normal rate/rhythm, volume Mood anxious and dysphoric TP: mostly linear thought blocking TC: hearing voices, that people are that she is that somehow she smells AH/VH: Delusions: persecutory/paranoia delusions Insight/judgment: some improvement, poor x 2. Memory/cog: alert, oriented x 2. grossly intact to conversational testing but not formally tested. judgment and insight: fair-poor Thought she would be better off denies active plan Assessment & Plan Assessment & Plan (1) Bipolar 1 disorder, depressed, severe: Status: Acute Code(s): F31.4 - Bipolar disorder, current episode depressed, severe, without psychotic features Plan Patient does have a healthcare proxy she did accept needing treatment reminded her that she had consented and asked for ECT treatment knew she was in a hospital thought blocking noted would lower gabapentin in case causing confusion continue lorazepam would most likely benefit from alternative antipsychotic was admitted transferred from [facility] for ECT. She did have some chest pain after her last ECT cardiac workup appeared negative was seen by cardiology [facility] who felt that ECT was not contraindicated they did have records from [facility] will get Cardiology input from [facility] Cardiology Patient educated on: diagnosis, medication risk/benefits and ECT Informed Consent: further education needed Reason for continued inpatient stay Substantial Risk for: harm to self and rapid decompensation Statement Statement: I have reviewed the history and physical and performed a pertinent examination on my patient. No changes have occurred unless specified. If the History and Physical was not performed prior to admission, the Hospitalist's service will be consulted for completing the admission physical. Time Spent With Patient Time: Total time managing care of this patient today ____ minutes.
--- NOTE | 2023-11-02 14:55 | HO.PM.IMCN ---
History of Present Illness Data of Consult Service Date: 11/02/23 Primary Care Provider: Theresa Nelson MD HPI Reason for consult: Admission H&P and ECT clearance Pt is a 68-year-old female with a PMH significant for LLE DVT in 2021, GERD, restless leg syndrome, hx of catatonia, and bipolar disorder with psychotic features?who is admitted to [facility] for increased depression with intrusive hallucinations and SI. Medical consult for admission H&P and preop ECT clearance. Pt appears actively psychotic with paranoia at time of interview and examination. Pt willingly and appropriately answers some questions, but appears briefly catatonic when asked others. At other times will answer inappropriately, such as saying Steffi said that froylan oneal was making kielbasa when asked whether she was experiencing chest pain, or worrying she was going somewhere that would make my brain go crazy or paranoid the police were trying to burn down her house with other ROS queries. Pt denies any medical complaints, but reliability of this claim questionable given her psychological state. As for ECT clearance, pt previously underwent ECT in 09/2021 where she complained about chest pain and had mildly elevated flat serial troponins in the 90s. Additional cardiac workup included negative EKG and echocardiogram with preserved LVEF and no wall motion abdnormalities, but stress perfusion imaging that showed small area of mild intensity apical ischemia. Was started on metoprolol to good effect. Underwent cardiac cath at [facility] in 11/2021 for definitive diagnosis that was negative for CAD. Record review does not indicate any non-cardiac issue that would preclude ECT. Review of Systems Review of Systems: Pt does not report any medical complaints, but reliability of this claim questionable given her psychological state. [facility] Medical History History of skin cancer Hx of bladder problems VITO (generalized anxiety disorder) Murmur, cardiac Hx of thyroid nodule Osteopenia Hx of skin cancer, basal cell Seasonal allergies Insomnia Constipation GERD (gastroesophageal reflux disease) Anxiety History of electroconvulsive therapy Bipolar 1 disorder Family History Mother Basal cell carcinoma (BCC) in situ of skin Osteoporosis Hyperlipidemia Father CAD (coronary artery disease) Alcoholism Sister Osteoporosis Depression Brother Cancer of tongue Cancer of skin Surgical History Hx of colonoscopy H/O elbow surgery History of back surgery Social History Household Members: None Housing: Apartment Are you a primary before and after school daycare worker to a significant other at home: No Do you presently have visiting nurse or other home services: Yes Unable to assess alcohol history related to: Unable to respond Comment: 1:1 staffing Patient Tobacco Use Status: Former Tobacco user Quit Date: 06/20/2021 cigarettes Tobacco use type: Cigarette Years Smoked: 30+, now vapes Smoked in Last 30 Days: No e-Cigarette/Vaping Use: Former Use Patient Interested in Nicotine Replacement: Yes Patient Given Instructions on How to Stop Smoking: Yes Date Education Initiated: 11/01/23 Second Hand Smoke Exposure: No Use of substances other than those prescribed or required for medical reasons: Yes Substance Use Type: Crack/Cocaine Last Used Substance: Unknown Currently Displaying Signs/Symptoms of Drug Intoxication Withdrawal: No Any prior treatment program specific to substance use: No Have you been hit, kicked, punched, or otherwise hurt by someone within the past year? If so, by whom?: No Do you feel safe in your current relationship?: Yes Is there a partner from a previous relationship who is making you feel unsafe now?: No Are you made to feel afraid or neglected: No [facility] Practices: cheondoism Advance Directives: No Advance Directives Information Provided: No Do you have thoughts of harming others: None Do you have a plan to hurt others: No Plan Recently lost weight without trying: Yes How much weight loss: 14-23 pounds Eating poorly because of decreased appetite: Yes Nutrition screen score: 5 Nutrition Risks: Dental problems and Poor intake 0-25% >4 days Patient : No : No Poor oral hygiene: No service: No Current occupational status: unemployed and retired 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 presenting disorganized behavior when being interviewed. Meds Allergies Allergy/AdvReac Type Severity Reaction Status Date / Time bee pollen Allergy Severe Anaphylaxis Verified 01/25/22 15:16 levofloxacin [From Levaquin] Allergy Severe Itching Verified 01/25/22 15:16 enoxaparin [From Lovenox] Allergy Intermediate Rash Verified 01/25/22 15:16 Penicillins Allergy Unknown Unknown Verified 01/25/22 15:16 Seasonal Allergies Allergy Runny Nose Verified 01/25/22 15:16 venlafaxine [From Effexor] Allergy Constipatio Verified 01/25/22 15:16 n Active Medications: Current Medications Acetaminophen (Acetaminophen 325 Mg Tablet) 650 mg PO Q6H PRN PRN Reason: Headache/Pain Mild Scale (1-3) Acetaminophen (Acetaminophen 325 Mg Tablet) 650 mg PO Q6H PRN PRN Reason: Fever Or Pain Al Hydroxide/Mg Hydroxide (Magnesium Hydrox/Alum Hydrox 30 Ml Oral.Susp) 30 ml PO Q6H PRN PRN Reason: Heartburn/Nausea Cyclobenzaprine HCl (Cyclobenzaprine Hcl 10 Mg Tablet) 10 mg PO TID PRN PRN Reason: muscle spasm Docusate Sodium (Docusate Sodium 100 Mg Capsule) 100 mg PO BID [facility] Last Admin: 11/02/23 09:44 Dose: Not Given Gabapentin (Gabapentin 400 Mg Capsule) 1,200 mg PO BEDTIME [facility] Last Admin: 11/01/23 20:47 Dose: Not Given Hydroxyzine HCl (Hydroxyzine Hcl 25 Mg Tablet) 25 mg PO Q6H PRN PRN Reason: Anxiety Ibuprofen (Ibuprofen 400 Mg Tablet) 400 mg PO TID [facility] Loratadine (Loratadine 10 Mg Tablet) 10 mg PO DAILY PRN PRN Reason: Allergy Symptoms Lorazepam (Lorazepam 1 Mg Tablet) 1 mg PO TID [facility] Last Admin: 11/02/23 09:44 Dose: Not Given Magnesium Hydroxide (Milk Of Magnesia 30 Ml Oral.Susp) 30 ml PO DAILY PRN PRN Reason: Constipation Omeprazole (Omeprazole 20 Mg Capsule.Dr) 20 mg PO BID@0630,1630 [facility] Last Admin: 11/02/23 05:36 Dose: Not Given Oxycodone HCl (Oxycodone Hcl Immed Release 5 Mg Tablet) 2.5 mg PO Q8H PRN PRN Reason: Severe Pain (Scale Score 7-10) Quetiapine Fumarate (Quetiapine Fumarate 300 Mg Tablet) 600 mg PO BEDTIME [facility] Last Admin: 11/01/23 20:47 Dose: Not Given Thiamine HCl (Thiamine Hcl 100 Mg Tablet) 100 mg PO BID [facility] Trazodone HCl (Trazodone Hcl 50 Mg Tablet) 50 mg PO BEDTIME MRX1 PRN PRN Reason: Insomnia Home Medications ?Medication ?Instructions ?Recorded ?Confirmed ?Last Taken ?Type omeprazole 20 mg capsule,delayed 20 mg PO BID 05/09/21 11/01/23 08/09/21 History release docusate sodium 100 mg capsule 1 cap PO BID 07/21/21 11/01/23 Unknown History loratadine 10 mg tablet (Claritin) 10 mg PO DAILY PRN Allergy Symptoms 07/21/21 11/01/23 Unknown History acetaminophen 325 mg tablet 650 mg PO Q6H PRN Fever Or Pain 09/08/21 11/01/23 10/29/23 14:05 History gabapentin 400 mg capsule 1,200 mg PO BEDTIME 01/25/22 11/01/23 10/31/23 19:37 History citalopram 20 mg tablet 20 mg PO DAILY 11/01/23 11/01/23 Unknown History cyclobenzaprine 10 mg tablet 10 mg PO TID PRN muscle spasm 11/01/23 11/01/23 Unknown History eszopiclone 3 mg tablet 3 mg PO BEDTIME 11/01/23 11/01/23 Unknown History ibuprofen 600 mg tablet 600 mg PO TID 11/01/23 11/01/23 10/31/23 14:26 History lorazepam 2 mg tablet 2 mg PO TID 11/01/23 11/01/23 11/01/23 14:00 History oxycodone 5 mg capsule 2.5 mg PO Q8H PRN Severe Pain 11/01/23 11/01/23 Unknown History (Scale Score 7-10) quetiapine 400 mg tablet 800 mg PO BEDTIME 11/01/23 11/01/23 Unknown History Physical Exam Vital Signs and Narrative: Vital Signs: Last Vital Signs Temp 98 F 11/02/23 09:20 Pulse 82 11/02/23 09:20 Resp 17 11/02/23 09:20 BP 122/72 11/02/23 09:20 Pulse Ox 100 11/02/23 09:20 O2 Del Method Room Air 11/02/23 09:20 BMI result Body Mass Index 21.9 General: Pt agitated at times but largely redirectable, no acute distress Resp: CTA bilaterally CVS: S1, S2, RRR GI: +BS, NT, no distention Skin: Warm, dry Neuro: Cranial nerves II-XII grossly intact bilaterally. Motor grossly intact bilaterally Extremities: No edema Psych: Actively psychotic and paranoid, occasionally answering inappropriately Assessment and Plan (1) Medical clearance for psychiatric admission: Status: Acute (2) Pre-op evaluation: Status: Acute Plan Pt is a 68-year-old female with a PMH significant for LLE DVT in 2021, GERD, restless leg syndrome, hx of catatonia, and bipolar disorder with psychotic features?who is admitted to [facility] for increased depression with intrusive hallucinations and SI. Medical consult for admission H&P and preop ECT clearance. Mood disorder Plan as per psychiatry At this time, no medical non-cardiac contraindication exists that would preclude patient from undergoing ECT treatment based on chart review and pt exam Will defer to cardiology for cardiac clearance given previous ECT history Hx of DVT Continue Eliquis Restless leg syndrome Continue gabapentin GERD PPI Thank you for allowing us to participate in the care of this patient. Signing off at this time. Please re-consult if any acute complaints or issues arise.
[2023-11-02 20:00] VITALS: BP 136/77; PULSE 84; RESP 18; TEMP 36.4; O2SAT 97
--- NOTE | 2023-11-03 06:31 | PC.NURSE ---
Patient isolative to room, did not engage with this RN when approached, remained inexpressive and staring blankly. Refused all meds despite multiple attempts.
[2023-11-03 08:00] VITALS: BP 145/68; PULSE 91; RESP 18; TEMP 36.5; O2SAT 95
--- NOTE | 2023-11-03 09:54 | P.PNPSI_ITS ---
Subjective Subjective Date of Service: 11/03/23 Reason For Visit: Bipolar disorder depressed with psychotic features Subjective Notes: Conditional Voluntary Interim History: The nursing staff reported the patient had been very paranoid, she has refused medications isolative in her room nonsensical at times very delusional. On interview the patient had a blank stare refused her medications and she refused to engage in conversation . She looks internally preoccupied like responding to internal stimuli. Mental Status Exam Mental Status Exam Patient Appearance: Appropriate Patient Orientation: Person Level of Consciousness: Awake Patient Behavior: Guarded, Passive and Suspicious Mood Description: Withdrawn Affect Description: Blunted Patient Cognition Impaired: Yes Ability to Follow Directions: Good Speech Pattern: Clear Hallucinations: None Delusions: Paranoid Ideation and Ideas of Reference Thought Process: Illogical and Slowed Thinking Thought Content: positive for [place] and positive for Thought Blocking Judgement: Poor Diagnostics Vital Signs (24Hr): Vital Signs - 24 hr 11/02/23 20:00 11/03/23 08:00 Temperature 97.5 F 97.7 F Pulse Rate 84 91 Respiratory Rate 18 18 Blood Pressure 136/77 145/68 H Pulse Oximetry 97 95 Oxygen Delivery Method Room Air Room Air BMI result Body Mass Index 21.9 Medications Medications Current Medications Acetaminophen (Acetaminophen 325 Mg Tablet) 650 mg PO Q6H PRN PRN Reason: Headache/Pain Mild Scale (1-3) Acetaminophen (Acetaminophen 325 Mg Tablet) 650 mg PO Q6H PRN PRN Reason: Fever Or Pain Al Hydroxide/Mg Hydroxide (Magnesium Hydrox/Alum Hydrox 30 Ml Oral.Susp) 30 ml PO Q6H PRN PRN Reason: Heartburn/Nausea Cyclobenzaprine HCl (Cyclobenzaprine Hcl 10 Mg Tablet) 10 mg PO TID PRN PRN Reason: muscle spasm Docusate Sodium (Docusate Sodium 100 Mg Capsule) 100 mg PO BID [facility] Last Admin: 11/03/23 09:19 Dose: Not Given Gabapentin (Gabapentin 400 Mg Capsule) 1,200 mg PO BEDTIME [facility] Last Admin: 11/02/23 21:53 Dose: Not Given Hydroxyzine HCl (Hydroxyzine Hcl 25 Mg Tablet) 25 mg PO Q6H PRN PRN Reason: Anxiety Ibuprofen (Ibuprofen 400 Mg Tablet) 400 mg PO TID [facility] Last Admin: 11/03/23 09:19 Dose: Not Given Loratadine (Loratadine 10 Mg Tablet) 10 mg PO DAILY PRN PRN Reason: Allergy Symptoms Lorazepam (Lorazepam 1 Mg Tablet) 1 mg PO TID [facility] Last Admin: 11/03/23 09:19 Dose: Not Given Magnesium Hydroxide (Milk Of Magnesia 30 Ml Oral.Susp) 30 ml PO DAILY PRN PRN Reason: Constipation Omeprazole (Omeprazole 20 Mg Capsule.Dr) 20 mg PO BID@0630,1630 [facility] Last Admin: 11/03/23 06:13 Dose: Not Given Oxycodone HCl (Oxycodone Hcl Immed Release 5 Mg Tablet) 2.5 mg PO Q8H PRN PRN Reason: Severe Pain (Scale Score 7-10) Quetiapine Fumarate (Quetiapine Fumarate 300 Mg Tablet) 600 mg PO BEDTIME [facility] Last Admin: 11/02/23 21:54 Dose: Not Given Thiamine HCl (Thiamine Hcl 100 Mg Tablet) 100 mg PO BID [facility] Last Admin: 11/03/23 09:19 Dose: Not Given Trazodone HCl (Trazodone Hcl 50 Mg Tablet) 50 mg PO BEDTIME MRX1 PRN PRN Reason: Insomnia Allergies Allergies Allergy/AdvReac Type Severity Reaction Status Date / Time bee pollen Allergy Severe Anaphylaxis Verified 01/25/22 15:16 levofloxacin [From Levaquin] Allergy Severe Itching Verified 01/25/22 15:16 enoxaparin [From Lovenox] Allergy Intermediate Rash Verified 01/25/22 15:16 Penicillins Allergy Unknown Unknown Verified 01/25/22 15:16 Seasonal Allergies Allergy Runny Nose Verified 01/25/22 15:16 venlafaxine [From Effexor] Allergy Constipatio Verified 01/25/22 15:16 n Assessment & Plan Assessment & Plan (1) Medical clearance for psychiatric admission: Status: Acute Code(s): Z00.8 - Encounter for other general examination (2) Pre-op evaluation: Status: Acute Code(s): Z01.818 - Encounter for other preprocedural examination Plan Pt is a 68-year-old female with a PMH significant for LLE DVT in 2021, GERD, restless leg syndrome, hx of catatonia, and bipolar disorder with psychotic features?who is admitted to [facility] for increased depression with intrusive hallucinations and SI. Medical consult for admission H&P and preop ECT clearance. Mood disorder Plan as per psychiatry At this time, no medical non-cardiac contraindication exists that would preclude patient from undergoing ECT treatment based on chart review and pt exam Will defer to cardiology for cardiac clearance given previous ECT history Hx of DVT Continue Eliquis Restless leg syndrome Continue gabapentin GERD PPI Plan 1. Gather collateral information. 2. Continue with antipsychotics. 3. At this moment the patient is so psychotic internally preoccupied, nearly catatonic. Most likely she will benefit of ECT. Reason for continued inpatient stay Substantial Risk for: inability to function, rapid decompensation and med/psych decompensation Time Spent With Patient Time: Total time managing care of this patient today __20__ minutes.
--- NOTE | 2023-11-03 10:01 | PC.NURSE ---
Patient allowed am vital signs. Refused am medications and is noncommunicative. declined breakfast.
--- NOTE | 2023-11-03 15:11 | PC.NURSE ---
Patient declined lunch and medication at 1500. Continues to be nonverbal staring angrily at TW.
--- NOTE | 2023-11-03 16:53 | PC.NURSE ---
Steffi declined dinner. Continues to be nonverbal and blankly stare.
[2023-11-03 20:00] VITALS: BP 149/79; PULSE 82; RESP 18; TEMP 36.8; O2SAT 96
[2023-11-04 07:52] VITALS: BP 158/82; PULSE 62; RESP 16; TEMP 36.4; O2SAT 95
--- NOTE | 2023-11-04 09:44 | P.CONCA_ITS ---
History of Present Illness History of Present Illness Date of Service: 11/04/23 Chief complaint: Bipolar disorder depressed with psychotic features Narrative: This is a cardiology consultation regarding preoperative evaluation for ECT therapy. Patient herself is nonverbal not able to give information. Chart reviewed. In the past, it seems that she had chest pain after ECT therapy. Had some elevation in troponins. Subsequently, underwent diagnostic catheterization but there was no significant disease. Review of Systems Review of Systems: Unable to obtain as patient is not talking. [facility] Past Medical History Medical History History of skin cancer Hx of bladder problems VITO (generalized anxiety disorder) Murmur, cardiac Hx of thyroid nodule Osteopenia Hx of skin cancer, basal cell Seasonal allergies Insomnia Constipation GERD (gastroesophageal reflux disease) Anxiety History of electroconvulsive therapy Bipolar 1 disorder Family History Family History Mother Basal cell carcinoma (BCC) in situ of skin Osteoporosis Hyperlipidemia Father CAD (coronary artery disease) Alcoholism Sister Osteoporosis Depression Brother Cancer of tongue Cancer of skin Surgical History Surgical History Hx of colonoscopy H/O elbow surgery History of back surgery Social History Social History Household Members: None Housing: Apartment Are you a primary resident care manager rn to a significant other at home: No Do you presently have visiting nurse or other home services: Yes Unable to assess alcohol history related to: Unable to respond Comment: 1:1 staffing Patient Tobacco Use Status: Former Tobacco user Quit Date: 06/20/2021 cigarettes Tobacco use type: Cigarette Years Smoked: 30+, now vapes Smoked in Last 30 Days: No e-Cigarette/Vaping Use: Former Use Patient Interested in Nicotine Replacement: Yes Patient Given Instructions on How to Stop Smoking: Yes Date Education Initiated: 11/01/23 Second Hand Smoke Exposure: No Use of substances other than those prescribed or required for medical reasons: Yes Substance Use Type: Crack/Cocaine Last Used Substance: Unknown Currently Displaying Signs/Symptoms of Drug Intoxication Withdrawal: No Any prior treatment program specific to substance use: No Have you been hit, kicked, punched, or otherwise hurt by someone within the past year? If so, by whom?: No Do you feel safe in your current relationship?: Yes Is there a partner from a previous relationship who is making you feel unsafe now?: No Are you made to feel afraid or neglected: No Hoahaoism Healthcare Practices: christian Advance Directives: No Advance Directives Information Provided: No Do you have thoughts of harming others: None Do you have a plan to hurt others: No Plan Recently lost weight without trying: Yes How much weight loss: 14-23 pounds Eating poorly because of decreased appetite: Yes Nutrition screen score: 5 Nutrition Risks: Dental problems and Poor intake 0-25% >4 days Patient : No : No Poor oral hygiene: No service: No Current occupational status: unemployed and retired 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 presenting disorganized behavior when being interviewed. Meds Allergies Allergy/AdvReac Type Severity Reaction Status Date / Time bee pollen Allergy Severe Anaphylaxis Verified 01/25/22 15:16 levofloxacin [From Levaquin] Allergy Severe Itching Verified 01/25/22 15:16 enoxaparin [From Lovenox] Allergy Intermediate Rash Verified 01/25/22 15:16 Penicillins Allergy Unknown Unknown Verified 01/25/22 15:16 Seasonal Allergies Allergy Runny Nose Verified 01/25/22 15:16 venlafaxine [From Effexor] Allergy Constipatio Verified 01/25/22 15:16 n Active Medications: Current Medications Acetaminophen (Acetaminophen 325 Mg Tablet) 650 mg PO Q6H PRN PRN Reason: Headache/Pain Mild Scale (1-3) Acetaminophen (Acetaminophen 325 Mg Tablet) 650 mg PO Q6H PRN PRN Reason: Fever Or Pain Al Hydroxide/Mg Hydroxide (Magnesium Hydrox/Alum Hydrox 30 Ml Oral.Susp) 30 ml PO Q6H PRN PRN Reason: Heartburn/Nausea Cyclobenzaprine HCl (Cyclobenzaprine Hcl 10 Mg Tablet) 10 mg PO TID PRN PRN Reason: muscle spasm Docusate Sodium (Docusate Sodium 100 Mg Capsule) 100 mg PO BID [facility] Last Admin: 11/03/23 21:25 Dose: Not Given Gabapentin (Gabapentin 400 Mg Capsule) 1,200 mg PO BEDTIME [facility] Last Admin: 11/03/23 21:25 Dose: Not Given Hydroxyzine HCl (Hydroxyzine Hcl 25 Mg Tablet) 25 mg PO Q6H PRN PRN Reason: Anxiety Ibuprofen (Ibuprofen 400 Mg Tablet) 400 mg PO TID [facility] Last Admin: 11/03/23 21:25 Dose: Not Given Loratadine (Loratadine 10 Mg Tablet) 10 mg PO DAILY PRN PRN Reason: Allergy Symptoms Lorazepam (Lorazepam 1 Mg Tablet) 1 mg PO TID [facility] Last Admin: 11/03/23 21:25 Dose: Not Given Magnesium Hydroxide (Milk Of Magnesia 30 Ml Oral.Susp) 30 ml PO DAILY PRN PRN Reason: Constipation Omeprazole (Omeprazole 20 Mg Capsule.Dr) 20 mg PO BID@0630,1630 [facility] Last Admin: 11/04/23 05:53 Dose: Not Given Oxycodone HCl (Oxycodone Hcl Immed Release 5 Mg Tablet) 2.5 mg PO Q8H PRN PRN Reason: Severe Pain (Scale Score 7-10) Quetiapine Fumarate (Quetiapine Fumarate 300 Mg Tablet) 600 mg PO BEDTIME [facility] Last Admin: 11/03/23 21:25 Dose: Not Given Thiamine HCl (Thiamine Hcl 100 Mg Tablet) 100 mg PO BID [facility] Last Admin: 11/03/23 21:25 Dose: Not Given Trazodone HCl (Trazodone Hcl 50 Mg Tablet) 50 mg PO BEDTIME MRX1 PRN PRN Reason: Insomnia Home Medications ?Medication ?Instructions ?Recorded ?Confirmed ?Last Taken ?Type omeprazole 20 mg capsule,delayed 20 mg PO BID 05/09/21 11/01/23 08/09/21 History release docusate sodium 100 mg capsule 1 cap PO BID 07/21/21 11/01/23 Unknown History loratadine 10 mg tablet (Claritin) 10 mg PO DAILY PRN Allergy Symptoms 07/21/21 11/01/23 Unknown History acetaminophen 325 mg tablet 650 mg PO Q6H PRN Fever Or Pain 09/08/21 11/01/23 10/29/23 14:05 History gabapentin 400 mg capsule 1,200 mg PO BEDTIME 01/25/22 11/01/23 10/31/23 19:37 History citalopram 20 mg tablet 20 mg PO DAILY 11/01/23 11/01/23 Unknown History cyclobenzaprine 10 mg tablet 10 mg PO TID PRN muscle spasm 11/01/23 11/01/23 Unknown History eszopiclone 3 mg tablet 3 mg PO BEDTIME 11/01/23 11/01/23 Unknown History ibuprofen 600 mg tablet 600 mg PO TID 11/01/23 11/01/23 10/31/23 14:26 History lorazepam 2 mg tablet 2 mg PO TID 11/01/23 11/01/23 11/01/23 14:00 History oxycodone 5 mg capsule 2.5 mg PO Q8H PRN Severe Pain 11/01/23 11/01/23 Unknown History (Scale Score 7-10) quetiapine 400 mg tablet 800 mg PO BEDTIME 11/01/23 11/01/23 Unknown History Physical Exam Vital Signs: Vital Signs: Last Vital Signs Temp 97.6 F 11/04/23 07:52 Pulse 62 11/04/23 07:52 Resp 16 11/04/23 07:52 BP 158/82 H 11/04/23 07:52 Pulse Ox 95 11/04/23 07:52 O2 Del Method Room Air 11/04/23 07:52 BMI result Body Mass Index 21.9 Const: General: comfortable and no acute distress Orientation /consciousness: No patient oriented x3 HEENT: Other: Unremarkable Head: Yes normal to inspection Neck: Neck: Yes normal visual inspection Chest: Chest palpation & inspection: normal inspection of the chest Resp: Auscultation: clear to auscultation bilaterally Cardio: Palpation: normal PMI Heart sounds: S1 normal heart sound present, S2 normal heart sound present, no gallops, no murmurs and no rubs GI: Palpation (GI): Soft to palpation Back/Spine/Pelvis: Other: unremarkable Skin: General skin exam: no rashes or lesions noted Neuro: General: No patient oriented x3 Extrem: General: Yes normal to inspection Psych: Mental Status: mental status grossly abnormal Objective ECG Interpretation: Sinus rhythm with no significant ST-T changes; normal VT and corrected QT. Assessment and Plan (1) Preoperative cardiovascular examination: Status: Acute Plan Cardiac studies reviewed. Prior echocardiogram with LVEF 55-60% with no wall motion abnormalities and otherwise unremarkable. Myocardial perfusion imaging study shows a small area of mild intensity apical ischemia. Cardiac catheterization 2021 shows normal coronary arteries. Overall, no cardiac contraindications to proceed with ECT therapy. No clear explanation as to why she had a small troponin leak in the past after ECT. Possible coronary vasospasm from ECT? Cannot predict recurrence either. If clinically indicated, may pursue ECT therapy considering the above. Procedures Date of Service Date of Service: 11/04/23
--- NOTE | 2023-11-04 09:52 | HO.PSYCHPN ---
Subjective Subjective Date of Service: 11/04/23 Reason For Visit: Bipolar disorder depressed with psychotic features Subjective Notes: Conditional Voluntary Interim History: The nursing staff reported the patient had been staring blankly, she refused her medications. She looks catatonic like at times. She refused fluids and she had minimal speech she slept 8 hours and she had been ambulatory to the bathroom. On interview the patient was with blunted stare, she was in the common area stating that she was doing fine. So far her vital signs are stable. Mental Status Exam Mental Status Exam Patient Appearance: Appropriate Patient Orientation: Person Level of Consciousness: Awake Patient Behavior: Guarded and Passive Mood Description: Blunted Affect Description: Blunted Patient Cognition Impaired: Yes Ability to Follow Directions: Fair Speech Pattern: No Speech Hallucinations: None Delusions: Paranoid Ideation and Ideas of Reference Thought Process: Incoherent and Slowed Thinking Thought Content: positive for [place] and positive for Thought Blocking Judgement: Poor Diagnostics Vital Signs (24Hr): Vital Signs - 24 hr 11/03/23 20:00 11/04/23 07:52 Temperature 98.2 F 97.6 F Pulse Rate 82 62 Respiratory Rate 18 16 Blood Pressure 149/79 H 158/82 H Pulse Oximetry 96 95 Oxygen Delivery Method Room Air Room Air BMI result Body Mass Index 21.9 Medications Medications Current Medications Acetaminophen (Acetaminophen 325 Mg Tablet) 650 mg PO Q6H PRN PRN Reason: Headache/Pain Mild Scale (1-3) Acetaminophen (Acetaminophen 325 Mg Tablet) 650 mg PO Q6H PRN PRN Reason: Fever Or Pain Al Hydroxide/Mg Hydroxide (Magnesium Hydrox/Alum Hydrox 30 Ml Oral.Susp) 30 ml PO Q6H PRN PRN Reason: Heartburn/Nausea Cyclobenzaprine HCl (Cyclobenzaprine Hcl 10 Mg Tablet) 10 mg PO TID PRN PRN Reason: muscle spasm Docusate Sodium (Docusate Sodium 100 Mg Capsule) 100 mg PO BID [facility] Last Admin: 11/03/23 21:25 Dose: Not Given Gabapentin (Gabapentin 400 Mg Capsule) 1,200 mg PO BEDTIME [facility] Last Admin: 11/03/23 21:25 Dose: Not Given Hydroxyzine HCl (Hydroxyzine Hcl 25 Mg Tablet) 25 mg PO Q6H PRN PRN Reason: Anxiety Ibuprofen (Ibuprofen 400 Mg Tablet) 400 mg PO TID [facility] Last Admin: 05/04/24 21:25 Dose: Not Given Loratadine (Loratadine 10 Mg Tablet) 10 mg PO DAILY PRN PRN Reason: Allergy Symptoms Lorazepam (Lorazepam 1 Mg Tablet) 1 mg PO TID [facility] Last Admin: 11/03/23 21:25 Dose: Not Given Magnesium Hydroxide (Milk Of Magnesia 30 Ml Oral.Susp) 30 ml PO DAILY PRN PRN Reason: Constipation Omeprazole (Omeprazole 20 Mg Capsule.Dr) 20 mg PO BID@0630,1630 [facility] Last Admin: 11/04/23 05:53 Dose: Not Given Oxycodone HCl (Oxycodone Hcl Immed Release 5 Mg Tablet) 2.5 mg PO Q8H PRN PRN Reason: Severe Pain (Scale Score 7-10) Quetiapine Fumarate (Quetiapine Fumarate 300 Mg Tablet) 600 mg PO BEDTIME [facility] Last Admin: 11/03/23 21:25 Dose: Not Given Thiamine HCl (Thiamine Hcl 100 Mg Tablet) 100 mg PO BID [facility] Last Admin: 11/03/23 21:25 Dose: Not Given Trazodone HCl (Trazodone Hcl 50 Mg Tablet) 50 mg PO BEDTIME MRX1 PRN PRN Reason: Insomnia Allergies Allergies Allergy/AdvReac Type Severity Reaction Status Date / Time bee pollen Allergy Severe Anaphylaxis Verified 01/25/22 15:16 levofloxacin [From Levaquin] Allergy Severe Itching Verified 01/25/22 15:16 enoxaparin [From Lovenox] Allergy Intermediate Rash Verified 01/25/22 15:16 Penicillins Allergy Unknown Unknown Verified 01/25/22 15:16 Seasonal Allergies Allergy Runny Nose Verified 01/25/22 15:16 venlafaxine [From Effexor] Allergy Constipatio Verified 01/25/22 15:16 n Assessment & Plan Assessment & Plan (1) Preoperative cardiovascular examination: Status: Acute Code(s): Z01.810 - Encounter for preprocedural cardiovascular examination Plan Cardiac studies reviewed. Prior echocardiogram with LVEF 55-60% with no wall motion abnormalities and otherwise unremarkable. Myocardial perfusion imaging study shows a small area of mild intensity apical ischemia. Cardiac catheterization 2021 shows normal coronary arteries. Overall, no cardiac contraindications to proceed with ECT therapy. No clear explanation as to why she had a small troponin leak in the past after ECT. Possible coronary vasospasm from ECT? Cannot predict recurrence either. If clinically indicated, may pursue ECT therapy considering the above. At this moment the patient has enough criteria for ECT. Reason for continued inpatient stay Substantial Risk for: inability to function, rapid decompensation and med/psych decompensation Time Spent With Patient Time: Total time managing care of this patient today __20__ minutes.
--- NOTE | 2023-11-04 18:44 | PC.NURSE ---
Patient OOB for lunch. [facility]. Continue to refuse meds. Did not speak at all until after dinner. Patient perseverating on someone she refers to as John Vega and an experience that was obviously painful and frightening for Steffi. Patient reported, Jesusaleksandra Vega did it to me. He [place] like a [place]. Patient went on to state, I'm scared and was easily startled. Patient was offered hydroxyzine for anxiety and refused. Patient c/o back pain. Was offered Oxycodone prn and again refused. Will continue to monitor.
[2023-11-04 20:00] VITALS: BP 138/88; PULSE 109; RESP 18; TEMP 36.4; O2SAT 97
[2023-11-05 08:40] VITALS: BP 119/80; PULSE 100; RESP 16; TEMP 36.3; O2SAT 96
[2023-11-05] MEDS: LORazepam 2 MG/ML VIAL IM ×2 (10:30→17:55)
[2023-11-05] MEDS: OLANZapine 10 MG VIAL IM (10:30)
--- NOTE | 2023-11-05 12:49 | PC.NURSE ---
This morning patient was seen out in the milieu yelling, crying and responding to internal stimuli. Patient refused her scheduled medications and also refused PRN's when offered to her for agitation/anxiety. Patient then began disrobing and urinating out in the milieu, it was also noted that she had taken off the hard cast that was on her right forearm. When encouraging Steffi to go to her room for some quiet time, she refused and began yelling No, no, no! at staff. Patient was eventually escorted to her room in a wheelchair and security was called for assistance. IM orders were placed and patient began doing arm stretches at the end of her bed (as these help to de-escalate her) while Lorazepam 2mg and olanzapine 10mg were given IM in patient's left ventrogluteal. Patient was held by security during the injection and let go of as soon as it was finished. The first set of vitals were refused by the patient and afterwards were taken Q15 minutes, vitals stable.
--- NOTE | 2023-11-05 15:33 | HO.PSYCHPN ---
Subjective Subjective Date of Service: 11/05/23 Reason For Visit: Bipolar disorder depressed with psychotic features Subjective Notes: Conditional Voluntary Interim History: The nursing staff reported the patient had been internally preoccupied, nearly catatonic at times. Yesterday she went out and she was self dialogue in responding to internal stimuli stating that the voices were threatening to punching in the mouth. Today in the morning she was responding to internal stimuli she was grossly disorganized. She refused p.o. and she was very disruptive in the common areas we needed to call for a code and medicate her with Zyprexa and Ativan IM. The patient only slept 1 or 2 hours and then she was disruptive in the unit. Difficult to deescalate. On interview the patient was oppositional and disorganized stating that she is doing fine. Mental Status Exam Mental Status Exam Patient Appearance: Unkempt Patient Orientation: Person Level of Consciousness: Restless and Inappropriate Patient Behavior: Guarded and Posturing Mood Description: Withdrawn Affect Description: Labile and Blunted Patient Cognition Impaired: Yes Ability to Follow Directions: Poor Speech Pattern: Impoverished and Monotone Hallucinations: None Delusions: Paranoid Ideation, Grandiose and Ideas of Reference Thought Process: Incoherent, Racing, Illogical and Distracted Thought Content: positive for [place] and positive for Circumstantial Judgement: Poor Diagnostics Vital Signs (24Hr): Vital Signs - 24 hr 11/04/23 20:00 11/05/23 08:40 Temperature 97.6 F 97.4 F Pulse Rate 109 H 100 Respiratory Rate 18 16 Blood Pressure 138/88 119/80 Pulse Oximetry 97 96 Oxygen Delivery Method Room Air Room Air BMI result Body Mass Index 21.9 Medications Medications Current Medications Acetaminophen (Acetaminophen 325 Mg Tablet) 650 mg PO Q6H PRN PRN Reason: Headache/Pain Mild Scale (1-3) Acetaminophen (Acetaminophen 325 Mg Tablet) 650 mg PO Q6H PRN PRN Reason: Fever Or Pain Al Hydroxide/Mg Hydroxide (Magnesium Hydrox/Alum Hydrox 30 Ml Oral.Susp) 30 ml PO Q6H PRN PRN Reason: Heartburn/Nausea Cyclobenzaprine HCl (Cyclobenzaprine Hcl 10 Mg Tablet) 10 mg PO TID PRN PRN Reason: muscle spasm Docusate Sodium (Docusate Sodium 100 Mg Capsule) 100 mg PO BID [facility] Last Admin: 11/05/23 08:52 Dose: Not Given Gabapentin (Gabapentin 400 Mg Capsule) 1,200 mg PO BEDTIME [facility] Last Admin: 11/04/23 20:13 Dose: Not Given Hydroxyzine HCl (Hydroxyzine Hcl 25 Mg Tablet) 25 mg PO Q6H PRN PRN Reason: Anxiety Ibuprofen (Ibuprofen 400 Mg Tablet) 400 mg PO TID [facility] Last Admin: 11/05/23 08:52 Dose: Not Given Loratadine (Loratadine 10 Mg Tablet) 10 mg PO DAILY PRN PRN Reason: Allergy Symptoms Lorazepam (Lorazepam 1 Mg Tablet) 1 mg PO TID [facility] Last Admin: 11/05/23 08:52 Dose: Not Given Magnesium Hydroxide (Milk Of Magnesia 30 Ml Oral.Susp) 30 ml PO DAILY PRN PRN Reason: Constipation Omeprazole (Omeprazole 20 Mg Capsule.Dr) 20 mg PO BID@0630,1630 [facility] Last Admin: 11/05/23 05:25 Dose: Not Given Oxycodone HCl (Oxycodone Hcl Immed Release 5 Mg Tablet) 2.5 mg PO Q8H PRN PRN Reason: Severe Pain (Scale Score 7-10) Quetiapine Fumarate (Quetiapine Fumarate 300 Mg Tablet) 600 mg PO BEDTIME [facility] Last Admin: 11/04/23 20:14 Dose: Not Given Thiamine HCl (Thiamine Hcl 100 Mg Tablet) 100 mg PO BID [facility] Last Admin: 11/05/23 08:52 Dose: Not Given Trazodone HCl (Trazodone Hcl 50 Mg Tablet) 50 mg PO BEDTIME MRX1 PRN PRN Reason: Insomnia Allergies Allergies Allergy/AdvReac Type Severity Reaction Status Date / Time bee pollen Allergy Severe Anaphylaxis Verified 01/25/22 15:16 levofloxacin [From Levaquin] Allergy Severe Itching Verified 01/25/22 15:16 enoxaparin [From Lovenox] Allergy Intermediate Rash Verified 01/25/22 15:16 Penicillins Allergy Unknown Unknown Verified 01/25/22 15:16 Seasonal Allergies Allergy Runny Nose Verified 01/25/22 15:16 venlafaxine [From Effexor] Allergy Constipatio Verified 01/25/22 15:16 n Assessment & Plan Assessment & Plan (1) Preoperative cardiovascular examination: Status: Acute Code(s): Z01.810 - Encounter for preprocedural cardiovascular examination Plan Cardiac studies reviewed. Prior echocardiogram with LVEF 55-60% with no wall motion abnormalities and otherwise unremarkable. Myocardial perfusion imaging study shows a small area of mild intensity apical ischemia. Cardiac catheterization 2021 shows normal coronary arteries. Overall, no cardiac contraindications to proceed with ECT therapy. No clear explanation as to why she had a small troponin leak in the past after ECT. Possible coronary vasospasm from ECT? Cannot predict recurrence either. If clinically indicated, may pursue ECT therapy considering the above. At this moment the patient has enough criteria for ECT. Probably will need to revoke her CV and filed for Section 7 and 8 since the patient is not compliant with medication grossly psychotic. Reason for continued inpatient stay Substantial Risk for: inability to function, rapid decompensation and med/psych decompensation Time Spent With Patient Time: Total time managing care of this patient today __20__ minutes.
[2023-11-05] MEDS: Omeprazole 20 MG CAPSULE.DR PO (16:28)
--- NOTE | 2023-11-05 17:51 | PM.EVENT ---
Event Note Date of Service: 11/05/23 Event Note: Pt agitated, threatening and swinging at RN. Pt not able to be redirected, continued to go after staff posturing and swinging at them. Ordered Haldol 5mg IM, ativan 2mg IM. Also needs physical restraint- in chair. awaiting effect of medications. Time Spent With Patient Time: Total time managing care of this patient today ____ minutes.
[2023-11-05] MEDS: Haloperidol Lactate 5 MG/ML VIAL IM (17:55)
--- NOTE | 2023-11-05 18:22 | PC.NURSE ---
Patient became agitated this evening after dinner. She began pacing up and down the halls yelling Why did you do this to me? Call the ED, they're trying to poison me! . She began banging into exit doors with her arms and attempting to go into other patients rooms. Patient was offered medications which she refused, she was also brought outside on the patio to get some fresh air and was encouraged to sit in her room for some time to help relax (she refused all interventions offered). When this nurse attempted to speak calmly with the patient, she grabbed this nurses arms, dug her nails into them and began making threats as she shook aggressively. Orders were placed for Haldol and Ativan IM which were given in the patient's room at 1755 in her right deltoid. Security held down the patient's extremities as she attempted to kick and swing during the med administration. Staff attempted to retrieve vitals from the patient Q15 minutes but patient becomes more aggressive and began throwing items at staff when getting close to her.
[2023-11-05 20:00] VITALS: BP 102/59; PULSE 88; RESP 18; TEMP 36.1; O2SAT 94
[2023-11-06] MEDS: Omeprazole 20 MG CAPSULE.DR PO (05:40)
[2023-11-06] MEDS: hydrOXYzine HCL 25 MG TABLET PO (05:40)
[2023-11-06] MEDS: Thiamine HCL 100 MG TABLET PO (05:40)
[2023-11-06] MEDS: Ibuprofen 400 MG TABLET PO (05:40)
[2023-11-06] MEDS: LORazepam 1 MG TABLET PO (05:41)
[2023-11-06] MEDS: Docusate Sodium 100 MG CAPSULE PO (05:41)
--- NOTE | 2023-11-06 05:50 | PC.NURSE ---
Patient awake at 0530, alert and oriented x 3. Patient recalling events from yesterday, appearing tearful and anxious. Repeatedly asking Why did you do this to me? Patient reassured and attempted to debrief with patient. Patient continues to have flight of ideas and responding to internal stimuli. Patient becoming slightly irritable at times. Patient accepting of morning omeprazole. This RN notified fermentation scientist provider to administer AM medications early. Medication education provided to patient, and she was able to take all scheduled morning medications as well as PRN atarax. Patient pacing milieu at this time with 1:1 observer.
[2023-11-06 08:15] VITALS: BP 183/85; PULSE 109; RESP 18; TEMP 36.4; O2SAT 96
--- NOTE | 2023-11-06 11:48 | PC.NURSE ---
Filed paperwork for Sect 7&8
--- NOTE | 2023-11-06 12:50 | P.PNPSI_ITS ---
Subjective Subjective Date of Service: 11/06/23 Reason For Visit: Bipolar disorder depressed with psychotic features Subjective Notes: Conditional Voluntary Interim History: The nursing staff reported that yesterday had to be medicated IM twice she had been agitated but took medications today. She was transferred from [facility] with the hopes of having ECT but so far she is grossly psychotic internally preoccupied selectively mute refusing medications. Today I informed her that we will affirm her healthcare proxy. The patient remains grossly psychotic Mental Status Exam Mental Status Exam Patient Appearance: Appropriate Patient Orientation: Person Level of Consciousness: Restless Patient Behavior: Guarded and Passive Mood Description: Withdrawn Affect Description: Blunted Ability to Follow Directions: Fair Speech Pattern: Impoverished Hallucinations: Auditory Delusions: Paranoid Ideation and Ideas of Reference Thought Process: Incoherent, Distracted and Slowed Thinking Thought Content: positive for Persever[place], positive for Poverty of Content and positive for Thought Blocking Judgement: Poor Diagnostics Vital Signs (24Hr): Vital Signs - 24 hr 11/05/23 20:00 11/06/23 08:15 Temperature 96.9 F 97.5 F Pulse Rate 88 109 H Respiratory Rate 18 18 Blood Pressure 102/59 L 183/85 H Pulse Oximetry 94 96 Oxygen Delivery Method Room Air Room Air BMI result Body Mass Index 21.9 Medications Medications Current Medications Acetaminophen (Acetaminophen 325 Mg Tablet) 650 mg PO Q6H PRN PRN Reason: Headache/Pain Mild Scale (1-3) Acetaminophen (Acetaminophen 325 Mg Tablet) 650 mg PO Q6H PRN PRN Reason: Fever Or Pain Al Hydroxide/Mg Hydroxide (Magnesium Hydrox/Alum Hydrox 30 Ml Oral.Susp) 30 ml PO Q6H PRN PRN Reason: Heartburn/Nausea Cyclobenzaprine HCl (Cyclobenzaprine Hcl 10 Mg Tablet) 10 mg PO TID PRN PRN Reason: muscle spasm Docusate Sodium (Docusate Sodium 100 Mg Capsule) 100 mg PO BID [facility] Last Admin: 11/06/23 05:41 Dose: 100 mg Gabapentin (Gabapentin 400 Mg Capsule) 1,200 mg PO BEDTIME [facility] Last Admin: 11/05/23 22:36 Dose: Not Given Hydroxyzine HCl (Hydroxyzine Hcl 25 Mg Tablet) 25 mg PO Q6H PRN PRN Reason: Anxiety Last Admin: 11/06/23 05:40 Dose: 25 mg Ibuprofen (Ibuprofen 400 Mg Tablet) 400 mg PO TID [facility] Last Admin: 11/06/23 05:40 Dose: 400 mg Loratadine (Loratadine 10 Mg Tablet) 10 mg PO DAILY PRN PRN Reason: Allergy Symptoms Lorazepam (Lorazepam 1 Mg Tablet) 1 mg PO TID [facility] Last Admin: 11/06/23 05:41 Dose: 1 mg Magnesium Hydroxide (Milk Of Magnesia 30 Ml Oral.Susp) 30 ml PO DAILY PRN PRN Reason: Constipation Omeprazole (Omeprazole 20 Mg Capsule.Dr) 20 mg PO BID@0630,1630 [facility] Last Admin: 11/06/23 05:40 Dose: 20 mg Oxycodone HCl (Oxycodone Hcl Immed Release 5 Mg Tablet) 2.5 mg PO Q8H PRN PRN Reason: Severe Pain (Scale Score 7-10) Quetiapine Fumarate (Quetiapine Fumarate 300 Mg Tablet) 600 mg PO BEDTIME [facility] Last Admin: 11/05/23 22:36 Dose: Not Given Thiamine HCl (Thiamine Hcl 100 Mg Tablet) 100 mg PO BID [facility] Last Admin: 11/06/23 05:40 Dose: 100 mg Trazodone HCl (Trazodone Hcl 50 Mg Tablet) 50 mg PO BEDTIME MRX1 PRN PRN Reason: Insomnia Allergies Allergies Allergy/AdvReac Type Severity Reaction Status Date / Time bee pollen Allergy Severe Anaphylaxis Verified 01/25/22 15:16 levofloxacin [From Levaquin] Allergy Severe Itching Verified 01/25/22 15:16 enoxaparin [From Lovenox] Allergy Intermediate Rash Verified 01/25/22 15:16 Penicillins Allergy Unknown Unknown Verified 01/25/22 15:16 Seasonal Allergies Allergy Runny Nose Verified 01/25/22 15:16 venlafaxine [From Effexor] Allergy Constipatio Verified 01/25/22 15:16 n Assessment & Plan Assessment & Plan (1) Preoperative cardiovascular examination: Status: Acute Code(s): Z01.810 - Encounter for preprocedural cardiovascular examination Plan Cardiac studies reviewed. Prior echocardiogram with LVEF 55-60% with no wall motion abnormalities and otherwise unremarkable. Myocardial perfusion imaging study shows a small area of mild intensity apical ischemia. Cardiac catheterization 2021 shows normal coronary arteries. Overall, no cardiac contraindications to proceed with ECT therapy. No clear explanation as to why she had a small troponin leak in the past after ECT. Possible coronary vasospasm from ECT? Cannot predict recurrence either. If clinically indicated, may pursue ECT therapy considering the above. At this moment the patient has enough criteria for ECT. Probably will need to revoke her CV and filed for Section 7 and 8 since the patient is not compliant with medication grossly psychotic. November 05 we are doing the paperwork to affirmed healthcare proxy. Reason for continued inpatient stay Substantial Risk for: inability to function, rapid decompensation and med/psych decompensation Time Spent With Patient Time: Total time managing care of this patient today __20__ minutes.
[2023-11-06 20:00] VITALS: BP 127/84; PULSE 84; RESP 18; TEMP 36.4; O2SAT 99
[2023-11-07 08:00] VITALS: BP 125/84; PULSE 95; RESP 18; TEMP 36; O2SAT 99
--- NOTE | 2023-11-07 10:53 | P.PNPSI_ITS ---
Subjective Subjective Date of Service: 11/07/23 Reason For Visit: Bipolar disorder depressed with psychotic features Interim History: The nursing staff reported the patient had been flat withdrawn. She denies auditory hallucinations but she was seen responding to internal stimuli. She r efused her medications in the afternoon and in the evening. She was watch TV and she did not sleep last night. The social work coordinator contact the healthcare proxy and explained the legal situation. Apparently she has [employer] services. We discussed the case with the legal team and we are going to affirm her healthcare proxy so we can do treatment on her. On assessment, the patient remains internally preoccupied, psychotic angry at times. Mental Status Exam Mental Status Exam Patient Appearance: Appropriate Patient Orientation: Person and Situation Level of Consciousness: Awake and Appropriate Patient Behavior: Guarded and Passive Mood Description: Withdrawn Affect Description: Constricted Patient Cognition Impaired: Yes Ability to Follow Directions: Good Speech Pattern: Clear Hallucinations: Auditory Delusions: Paranoid Ideation and Ideas of Reference Thought Process: Incoherent, Illogical and Distracted Thought Content: positive for [place] and positive for Thought Blocking Judgement: Poor Diagnostics Vital Signs (24Hr): Vital Signs - 24 hr 11/06/23 20:00 11/07/23 08:00 Temperature 97.5 F 96.8 F Pulse Rate 84 95 Respiratory Rate 18 18 Blood Pressure 127/84 125/84 Pulse Oximetry 99 99 Oxygen Delivery Method Room Air Room Air BMI result Body Mass Index 21.9 Medications Medications Current Medications Acetaminophen (Acetaminophen 325 Mg Tablet) 650 mg PO Q6H PRN PRN Reason: Headache/Pain Mild Scale (1-3) Acetaminophen (Acetaminophen 325 Mg Tablet) 650 mg PO Q6H PRN PRN Reason: Fever Or Pain Al Hydroxide/Mg Hydroxide (Magnesium Hydrox/Alum Hydrox 30 Ml Oral.Susp) 30 ml PO Q6H PRN PRN Reason: Heartburn/Nausea Cyclobenzaprine HCl (Cyclobenzaprine Hcl 10 Mg Tablet) 10 mg PO TID PRN PRN Reason: muscle spasm Docusate Sodium (Docusate Sodium 100 Mg Capsule) 100 mg PO BID [facility] Last Admin: 11/06/23 21:11 Dose: Not Given Gabapentin (Gabapentin 400 Mg Capsule) 1,200 mg PO BEDTIME [facility] Last Admin: 11/06/23 21:11 Dose: Not Given Hydroxyzine HCl (Hydroxyzine Hcl 25 Mg Tablet) 25 mg PO Q6H PRN PRN Reason: Anxiety Last Admin: 11/06/23 05:40 Dose: 25 mg Ibuprofen (Ibuprofen 400 Mg Tablet) 400 mg PO TID [facility] Last Admin: 11/06/23 21:11 Dose: Not Given Loratadine (Loratadine 10 Mg Tablet) 10 mg PO DAILY PRN PRN Reason: Allergy Symptoms Lorazepam (Lorazepam 1 Mg Tablet) 1 mg PO TID [facility] Last Admin: 11/06/23 21:12 Dose: Not Given Magnesium Hydroxide (Milk Of Magnesia 30 Ml Oral.Susp) 30 ml PO DAILY PRN PRN Reason: Constipation Omeprazole (Omeprazole 20 Mg Capsule.Dr) 20 mg PO BID@0630,1630 [facility] Last Admin: 11/07/23 05:53 Dose: Not Given Oxycodone HCl (Oxycodone Hcl Immed Release 5 Mg Tablet) 2.5 mg PO Q8H PRN PRN Reason: Severe Pain (Scale Score 7-10) Quetiapine Fumarate (Quetiapine Fumarate 300 Mg Tablet) 600 mg PO BEDTIME [facility] Last Admin: 11/06/23 21:12 Dose: Not Given Thiamine HCl (Thiamine Hcl 100 Mg Tablet) 100 mg PO BID [facility] Last Admin: 11/06/23 21:12 Dose: Not Given Trazodone HCl (Trazodone Hcl 50 Mg Tablet) 50 mg PO BEDTIME [facility]X1 PRN PRN Reason: Insomnia Allergies Allergies Allergy/AdvReac Type Severity Reaction Status Date / Time bee pollen Allergy Severe Anaphylaxis Verified 01/25/22 15:16 levofloxacin [From Levaquin] Allergy Severe Itching Verified 01/25/22 15:16 enoxaparin [From Lovenox] Allergy Intermediate Rash Verified 01/25/22 15:16 Penicillins Allergy Unknown Unknown Verified 01/25/22 15:16 Seasonal Allergies Allergy Runny Nose Verified 01/25/22 15:16 venlafaxine [From Effexor] Allergy Constipatio Verified 01/25/22 15:16 n Assessment & Plan Assessment & Plan (1) Preoperative cardiovascular examination: Status: Acute Code(s): Z01.810 - Encounter for preprocedural cardiovascular examination Plan Cardiac studies reviewed. Prior echocardiogram with LVEF 55-60% with no wall motion abnormalities and otherwise unremarkable. Myocardial perfusion imaging study shows a small area of mild intensity apical ischemia. Cardiac catheterization 2021 shows normal coronary arteries. Overall, no cardiac contraindications to proceed with ECT therapy. No clear explanation as to why she had a small troponin leak in the past after ECT. Possible coronary vasospasm from ECT? Cannot predict recurrence either. If clinically indicated, may pursue ECT therapy considering the above. At this moment the patient has enough criteria for ECT. Probably will need to revoke her CV and filed for Section 7 and 8 since the patient is not compliant with medication grossly psychotic. But after discussing the case with her healthcare proxy legal team, on November 05 we are doing the paperwork to affirmed healthcare proxy. Reason for continued inpatient stay Substantial Risk for: inability to function, rapid decompensation and med/psych decompensation Time Spent With Patient Time: Total time managing care of this patient today __20__ minutes.
--- NOTE | 2023-11-07 13:54 | MHC.CLN ---
NUTRITION DIET=REGULAR. INTAKE USUALLY POOR. ADDING ENSURE BID TO INCREASE NUTRITIONAL INTAKE. SUPPLEMENT PROVIDES 700 KCALS, [address] TO FOLLOW UP WEEKLY.
--- NOTE | 2023-11-07 17:27 | PC.NURSE ---
Patient refused all PO medication, several attempts made. Patient remains on 1:1. Quiet today, no behaviors.
[2023-11-07 20:00] VITALS: BP 133/76; PULSE 81; RESP 16; TEMP 36.2; O2SAT 99
[2023-11-08 07:00] VITALS: BMI 21.5
[2023-11-08 08:00] VITALS: BP 131/79; PULSE 81; RESP 18; TEMP 36.1; O2SAT 98
--- NOTE | 2023-11-08 08:15 | HO.PSYCHPN ---
Subjective Subjective Date of Service: 11/08/23 Reason For Visit: Bipolar disorder depressed with psychotic features Subjective Notes: Conditional Voluntary Healthcare Proxy: Yes Interim History: The nursing staff reported the patient had been inconsistent with the compliance of her treatment. She looks internally preoccupied, it seems that she is responding to internal stimuli. The social service assistant reported that she follows treatment in the community at [facility] in her [place]. We will try to gather more collateral information. On interview the patient reported that she is not feeling fine, she looks responding to internal stimuli. I encouraged her compliance. We have filed for information of healthcare proxy to start giving him antipsychotics and possible ECT. Mental Status Exam Mental Status Exam Patient Appearance: Appropriate Patient Orientation: Person and Situation Level of Consciousness: Awake Patient Behavior: Guarded and Passive Mood Description: Withdrawn Affect Description: Blunted Patient Cognition Impaired: Yes Ability to Follow Directions: Fair Speech Pattern: Clear Hallucinations: Auditory Delusions: Paranoid Ideation and Ideas of Reference Thought Process: Illogical, Distracted and Slowed Thinking Thought Content: positive for [place], positive for Loose Associations and positive for Thought Blocking Judgement: Poor Diagnostics Vital Signs (24Hr): Vital Signs - 24 hr 11/07/23 20:00 Temperature 97.1 F Pulse Rate 81 Respiratory Rate 16 Blood Pressure 133/76 Pulse Oximetry 99 Oxygen Delivery Method Room Air BMI result Body Mass Index 21.9 Medications Medications Current Medications Acetaminophen (Acetaminophen 325 Mg Tablet) 650 mg PO Q6H PRN PRN Reason: Headache/Pain Mild Scale (1-3) Acetaminophen (Acetaminophen 325 Mg Tablet) 650 mg PO Q6H PRN PRN Reason: Fever Or Pain Al Hydroxide/Mg Hydroxide (Magnesium Hydrox/Alum Hydrox 30 Ml Oral.Susp) 30 ml PO Q6H PRN PRN Reason: Heartburn/Nausea Cyclobenzaprine HCl (Cyclobenzaprine Hcl 10 Mg Tablet) 10 mg PO TID PRN PRN Reason: muscle spasm Docusate Sodium (Docusate Sodium 100 Mg Capsule) 100 mg PO BID [facility] Last Admin: 11/07/23 21:44 Dose: Not Given Gabapentin (Gabapentin 400 Mg Capsule) 1,200 mg PO BEDTIME [facility] Last Admin: 11/07/23 21:44 Dose: Not Given Hydroxyzine HCl (Hydroxyzine Hcl 25 Mg Tablet) 25 mg PO Q6H PRN PRN Reason: Anxiety Last Admin: 11/06/23 05:40 Dose: 25 mg Ibuprofen (Ibuprofen 400 Mg Tablet) 400 mg PO TID [facility] Last Admin: 11/07/23 21:44 Dose: Not Given Loratadine (Loratadine 10 Mg Tablet) 10 mg PO DAILY PRN PRN Reason: Allergy Symptoms Lorazepam (Lorazepam 1 Mg Tablet) 1 mg PO TID [facility] Last Admin: 11/07/23 21:44 Dose: Not Given Magnesium Hydroxide (Milk Of Magnesia 30 Ml Oral.Susp) 30 ml PO DAILY PRN PRN Reason: Constipation Omeprazole (Omeprazole 20 Mg Capsule.Dr) 20 mg PO BID@0630,1630 [facility] Last Admin: 11/08/23 05:41 Dose: Not Given Oxycodone HCl (Oxycodone Hcl Immed Release 5 Mg Tablet) 2.5 mg PO Q8H PRN PRN Reason: Severe Pain (Scale Score 7-10) Quetiapine Fumarate (Quetiapine Fumarate 300 Mg Tablet) 600 mg PO BEDTIME [facility] Last Admin: 11/07/23 21:44 Dose: Not Given Thiamine HCl (Thiamine Hcl 100 Mg Tablet) 100 mg PO BID [facility] Last Admin: 11/07/23 21:45 Dose: Not Given Trazodone HCl (Trazodone Hcl 50 Mg Tablet) 50 mg PO BEDTIME MRX1 PRN PRN Reason: Insomnia Allergies Allergies Allergy/AdvReac Type Severity Reaction Status Date / Time bee pollen Allergy Severe Anaphylaxis Verified 01/25/22 15:16 levofloxacin [From Levaquin] Allergy Severe Itching Verified 01/25/22 15:16 enoxaparin [From Lovenox] Allergy Intermediate Rash Verified 01/25/22 15:16 Penicillins Allergy Unknown Unknown Verified 01/25/22 15:16 Seasonal Allergies Allergy Runny Nose Verified 01/25/22 15:16 venlafaxine [From Effexor] Allergy Constipatio Verified 01/25/22 15:16 n Assessment & Plan Assessment & Plan (1) Preoperative cardiovascular examination: Status: Acute Code(s): Z01.810 - Encounter for preprocedural cardiovascular examination Plan Cardiac studies reviewed. Prior echocardiogram with LVEF 55-60% with no wall motion abnormalities and otherwise unremarkable. Myocardial perfusion imaging study shows a small area of mild intensity apical ischemia. Cardiac catheterization 2021 shows normal coronary arteries. Overall, no cardiac contraindications to proceed with ECT therapy. No clear explanation as to why she had a small troponin leak in the past after ECT. Possible coronary vasospasm from ECT? Cannot predict recurrence either. If clinically indicated, may pursue ECT therapy considering the above. At this moment the patient has enough criteria for ECT. Probably will need to revoke her CV and filed for Section 7 and 8 since the patient is not compliant with medication grossly psychotic. But after discussing the case with her healthcare proxy and the legal team, on November 05 we are doing the paperwork to affirmed healthcare proxy. Reason for continued inpatient stay Substantial Risk for: inability to function, rapid decompensation and med/psych decompensation Time Spent With Patient Time: Total time managing care of this patient today __20__ minutes.
--- NOTE | 2023-11-08 11:12 | PC.NURSE ---
Patient refused meds x multiple attempts. Refused breakfast. VSS, denies pain. Calm, in a milieu watching TV. Remains on 1:[address] Javier uribe. Will continue to monitor.
[2023-11-08 20:00] VITALS: BP 134/81; PULSE 84; RESP 17; TEMP 36.6; O2SAT 97
[2023-11-09 07:44] VITALS: BP 134/80; PULSE 80; RESP 18; TEMP 36.3; O2SAT 99
--- NOTE | 2023-11-09 08:49 | P.HPPS_ITS ---
HPI Chief Complaint: Bipolar disorder depressed with psychotic features HPI Past Psychiatric History: Patient does have a history of suicide attempt by overdose in the past. She was treated here in 2021 did develop catatonia with paranoia she was treated ECT which was eventually held because of chest pain although there were no acute findings -Psych provider is Abida Salazar in [place] -Per sister, pt has had depression since her early 20s and has suffered from unspecified chronic pain, surgeries. -Hx of multiple psych admissions to [facility] Medical History History of skin cancer Hx of bladder problems VITO (generalized anxiety disorder) Murmur, cardiac Hx of thyroid nodule Osteopenia Hx of skin cancer, basal cell Seasonal allergies Insomnia Constipation GERD (gastroesophageal reflux disease) Anxiety History of electroconvulsive therapy Bipolar 1 disorder Surgical History Hx of colonoscopy H/O elbow surgery History of back surgery Family History: -Depression. In 1998 her great grandfather hung himself. Social History: -Pt has never been , no children. One dog -Pt's mother (age 88), sister, and brother are involved with pt's care. -She graduated h.s. And has bachelors in psychology. She worked at [employer]. Diagnostics Vital Signs (24Hr): Vital Signs - 24 hr 11/08/23 20:00 Temperature 97.9 F Pulse Rate 84 Respiratory Rate 17 Blood Pressure 134/81 Pulse Oximetry 97 Oxygen Delivery Method Room Air BMI result Body Mass Index 21.5 Meds/Allergies Meds Home Medications ?Medication ?Instructions ?Recorded ?Confirmed ?Type omeprazole 20 mg capsule,delayed 20 mg PO BID 05/09/21 11/01/23 History release docusate sodium 100 mg capsule 1 cap PO BID 07/21/21 11/01/23 History loratadine 10 mg tablet (Claritin) 10 mg PO DAILY PRN Allergy Symptoms 07/21/21 11/01/23 History acetaminophen 325 mg tablet 650 mg PO Q6H PRN Fever Or Pain 09/08/21 11/01/23 History gabapentin 400 mg capsule 1,200 mg PO BEDTIME 01/25/22 11/01/23 History citalopram 20 mg tablet 20 mg PO DAILY 11/01/23 11/01/23 History cyclobenzaprine 10 mg tablet 10 mg PO TID PRN muscle spasm 11/01/23 11/01/23 History eszopiclone 3 mg tablet 3 mg PO BEDTIME 11/01/23 11/01/23 History ibuprofen 600 mg tablet 600 mg PO TID 11/01/23 11/01/23 History lorazepam 2 mg tablet 2 mg PO TID 11/01/23 11/01/23 History oxycodone 5 mg capsule 2.5 mg PO Q8H PRN Severe Pain 11/01/23 11/01/23 History (Scale Score 7-10) quetiapine 400 mg tablet 800 mg PO BEDTIME 11/01/23 11/01/23 History Allergies Allergies Allergy/AdvReac Type Severity Reaction Status Date / Time bee pollen Allergy Severe Anaphylaxis Verified 01/25/22 15:16 levofloxacin [From Levaquin] Allergy Severe Itching Verified 01/25/22 15:16 enoxaparin [From Lovenox] Allergy Intermediate Rash Verified 01/25/22 15:16 Penicillins Allergy Unknown Unknown Verified 01/25/22 15:16 Seasonal Allergies Allergy Runny Nose Verified 01/25/22 15:16 venlafaxine [From Effexor] Allergy Constipatio Verified 01/25/22 15:16 n Assessment & Plan Statement Statement: I have reviewed the history and physical and performed a pertinent examination on my patient. No changes have occurred unless specified. If the History and Physical was not performed prior to admission, the Hospitalist's service will be consulted for completing the admission physical. Time Spent With Patient Time: Total time managing care of this patient today ____ minutes.
--- NOTE | 2023-11-09 10:00 | PC.NURSE ---
Attempted to administer Steffi meds x 3 but she refused despite education. Dr. Rangel notified.
[2023-11-09 20:00] VITALS: BP 140/84; PULSE 85; RESP 16; TEMP 36.3; O2SAT 94
--- NOTE | 2023-11-09 20:54 | HO.PSYCHPN ---
Subjective Subjective Date of Service: 11/09/23 Reason For Visit: Bipolar disorder depressed with psychotic features Subjective Notes: Conditional Voluntary Healthcare Proxy: Yes Interim History: Patient seen psychiatric follow-up. Patient somewhat anxious blunted staring. Ambulation has been okay Medication Compliance: No Mental Status Exam Mental Status Exam Patient Appearance: Appropriate Patient Orientation: Person and Situation Level of Consciousness: Awake Patient Behavior: Guarded and Passive Mood Description: Withdrawn Affect Description: Blunted Patient Cognition Impaired: Yes Ability to Follow Directions: Fair Speech Pattern: Clear Hallucinations: Auditory Delusions: Paranoid Ideation and Ideas of Reference Thought Process: Illogical, Distracted and Slowed Thinking Thought Content: positive for [place], positive for Loose Associations and positive for Thought Blocking Judgement: Poor Diagnostics Vital Signs (24Hr): Vital Signs - 24 hr 11/09/23 07:44 Temperature 97.3 F Pulse Rate 80 Respiratory Rate 18 Blood Pressure 134/80 Pulse Oximetry 99 Oxygen Delivery Method Room Air BMI result Body Mass Index 21.5 Medications Medications Current Medications Acetaminophen (Acetaminophen 325 Mg Tablet) 650 mg PO Q6H PRN PRN Reason: Headache/Pain Mild Scale (1-3) Acetaminophen (Acetaminophen 325 Mg Tablet) 650 mg PO Q6H PRN PRN Reason: Fever Or Pain Al Hydroxide/Mg Hydroxide (Magnesium Hydrox/Alum Hydrox 30 Ml Oral.Susp) 30 ml PO Q6H PRN PRN Reason: Heartburn/Nausea Cyclobenzaprine HCl (Cyclobenzaprine Hcl 10 Mg Tablet) 10 mg PO TID PRN PRN Reason: muscle spasm Docusate Sodium (Docusate Sodium 100 Mg Capsule) 100 mg PO BID [facility] Last Admin: 11/09/23 08:52 Dose: Not Given Gabapentin (Gabapentin 400 Mg Capsule) 1,200 mg PO BEDTIME [facility] Last Admin: 11/08/23 20:05 Dose: Not Given Hydroxyzine HCl (Hydroxyzine Hcl 25 Mg Tablet) 25 mg PO Q6H PRN PRN Reason: Anxiety Last Admin: 11/06/23 05:40 Dose: 25 mg Ibuprofen (Ibuprofen 400 Mg Tablet) 400 mg PO TID [facility] Last Admin: 11/09/23 15:00 Dose: Not Given Loratadine (Loratadine 10 Mg Tablet) 10 mg PO DAILY PRN PRN Reason: Allergy Symptoms Lorazepam (Lorazepam 1 Mg Tablet) 1 mg PO TID [facility] Last Admin: 11/09/23 15:00 Dose: Not Given Magnesium Hydroxide (Milk Of Magnesia 30 Ml Oral.Susp) 30 ml PO DAILY PRN PRN Reason: Constipation Omeprazole (Omeprazole 20 Mg Capsule.Dr) 20 mg PO BID@0630,1630 [facility] Last Admin: 11/09/23 15:00 Dose: Not Given Oxycodone HCl (Oxycodone Hcl Immed Release 5 Mg Tablet) 2.5 mg PO Q8H PRN PRN Reason: Severe Pain (Scale Score 7-10) Quetiapine Fumarate (Quetiapine Fumarate 300 Mg Tablet) 600 mg PO BEDTIME [facility] Last Admin: 11/08/23 20:06 Dose: Not Given Thiamine HCl (Thiamine Hcl 100 Mg Tablet) 100 mg PO BID [facility] Last Admin: 11/09/23 08:52 Dose: Not Given Trazodone HCl (Trazodone Hcl 50 Mg Tablet) 50 mg PO BEDTIME MRX1 PRN PRN Reason: Insomnia Allergies Allergies Allergy/AdvReac Type Severity Reaction Status Date / Time bee pollen Allergy Severe Anaphylaxis Verified 01/25/22 15:16 levofloxacin [From Levaquin] Allergy Severe Itching Verified 01/25/22 15:16 enoxaparin [From Lovenox] Allergy Intermediate Rash Verified 01/25/22 15:16 Penicillins Allergy Unknown Unknown Verified 01/25/22 15:16 Seasonal Allergies Allergy Runny Nose Verified 01/25/22 15:16 venlafaxine [From Effexor] Allergy Constipatio Verified 01/25/22 15:16 n Assessment & Plan Assessment & Plan (1) Preoperative cardiovascular examination: Status: Acute Code(s): Z01.810 - Encounter for preprocedural cardiovascular examination Plan Cardiac studies reviewed. Prior echocardiogram with LVEF 55-60% with no wall motion abnormalities and otherwise unremarkable. Myocardial perfusion imaging study shows a small area of mild intensity apical ischemia. Cardiac catheterization 2021 shows normal coronary arteries. Overall, no cardiac contraindications to proceed with ECT therapy. No clear explanation as to why she had a small troponin leak in the past after ECT. Possible coronary vasospasm from ECT? Cannot predict recurrence either. If clinically indicated, may pursue ECT therapy considering the above. At this moment the patient has enough criteria for ECT. Probably will need to revoke her CV and filed for Section 7 and 8 since the patient is not compliant with medication grossly psychotic. But after discussing the case with her healthcare proxy and the legal team, on November 05 we are doing the paperwork to affirmed healthcare proxy. 11/09/2023 Changed 5 minute checks may need CV affirmed Reason for continued inpatient stay Substantial Risk for: inability to function and rapid decompensation Time Spent With Patient Time: Total time managing care of this patient today ____ minutes.
[2023-11-10 08:55] VITALS: BP 142/82; PULSE 91; RESP 18; TEMP 36.3; O2SAT 98
--- NOTE | 2023-11-10 14:35 | HO.PSYCHPN ---
Subjective Subjective Date of Service: 11/10/23 Reason For Visit: Bipolar disorder depressed with psychotic features Subjective Notes: Conditional Voluntary Healthcare Proxy: Yes Interim History: Patient seen psychiatric follow-up. Patient somewhat anxious blunted staring. Ambulation has been okay continues to refuse medication Medication Compliance: No Mental Status Exam Mental Status Exam Patient Appearance: Appropriate Patient Orientation: Person and Situation Level of Consciousness: Awake Patient Behavior: Guarded and Passive Mood Description: Withdrawn Affect Description: Blunted Patient Cognition Impaired: Yes Ability to Follow Directions: Fair Speech Pattern: Clear Hallucinations: Auditory Delusions: Paranoid Ideation and Ideas of Reference Thought Process: Illogical, Distracted and Slowed Thinking Thought Content: positive for [place], positive for Loose Associations and positive for Thought Blocking Judgement: Poor Diagnostics Vital Signs (24Hr): Vital Signs - 24 hr 11/09/23 20:00 11/10/23 08:55 Temperature 97.4 F 97.4 F Pulse Rate 85 91 Respiratory Rate 16 18 Blood Pressure 140/84 H 142/82 H Pulse Oximetry 94 98 Oxygen Delivery Method Room Air Room Air BMI result Body Mass Index 21.5 Medications Medications Current Medications Acetaminophen (Acetaminophen 325 Mg Tablet) 650 mg PO Q6H PRN PRN Reason: Headache/Pain Mild Scale (1-3) Acetaminophen (Acetaminophen 325 Mg Tablet) 650 mg PO Q6H PRN PRN Reason: Fever Or Pain Al Hydroxide/Mg Hydroxide (Magnesium Hydrox/Alum Hydrox 30 Ml Oral.Susp) 30 ml PO Q6H PRN PRN Reason: Heartburn/Nausea Cyclobenzaprine HCl (Cyclobenzaprine Hcl 10 Mg Tablet) 10 mg PO TID PRN PRN Reason: muscle spasm Docusate Sodium (Docusate Sodium 100 Mg Capsule) 100 mg PO BID [facility] Last Admin: 11/10/23 09:18 Dose: Not Given Gabapentin (Gabapentin 300 Mg Capsule) 600 mg PO BEDTIME [facility] Hydroxyzine HCl (Hydroxyzine Hcl 25 Mg Tablet) 25 mg PO Q6H PRN PRN Reason: Anxiety Last Admin: 11/06/23 05:40 Dose: 25 mg Ibuprofen (Ibuprofen 400 Mg Tablet) 400 mg PO TID [facility] Last Admin: 11/10/23 09:18 Dose: Not Given Loratadine (Loratadine 10 Mg Tablet) 10 mg PO DAILY PRN PRN Reason: Allergy Symptoms Lorazepam (Lorazepam 1 Mg Tablet) 1 mg PO TID [facility] Last Admin: 11/10/23 09:18 Dose: Not Given Magnesium Hydroxide (Milk Of Magnesia 30 Ml Oral.Susp) 30 ml PO DAILY PRN PRN Reason: Constipation Omeprazole (Omeprazole 20 Mg Capsule.Dr) 20 mg PO BID@0630,1630 [facility] Last Admin: 11/10/23 06:04 Dose: Not Given Oxycodone HCl (Oxycodone Hcl Immed Release 5 Mg Tablet) 2.5 mg PO Q8H PRN PRN Reason: Severe Pain (Scale Score 7-10) Quetiapine Fumarate (Quetiapine Fumarate 200 Mg Tablet) 200 mg PO BEDTIME [facility] Thiamine HCl (Thiamine Hcl 100 Mg Tablet) 100 mg PO BID [facility] Last Admin: 11/10/23 09:18 Dose: Not Given Trazodone HCl (Trazodone Hcl 50 Mg Tablet) 50 mg PO BEDTIME MRX1 PRN PRN Reason: Insomnia Allergies Allergies Allergy/AdvReac Type Severity Reaction Status Date / Time bee pollen Allergy Severe Anaphylaxis Verified 01/25/22 15:16 levofloxacin [From Levaquin] Allergy Severe Itching Verified 01/25/22 15:16 enoxaparin [From Lovenox] Allergy Intermediate Rash Verified 01/25/22 15:16 Penicillins Allergy Unknown Unknown Verified 01/25/22 15:16 Seasonal Allergies Allergy Runny Nose Verified 01/25/22 15:16 venlafaxine [From Effexor] Allergy Constipatio Verified 01/25/22 15:16 n Assessment & Plan Assessment & Plan (1) Preoperative cardiovascular examination: Status: Acute Code(s): Z01.810 - Encounter for preprocedural cardiovascular examination Plan Cardiac studies reviewed. Prior echocardiogram with LVEF 55-60% with no wall motion abnormalities and otherwise unremarkable. Myocardial perfusion imaging study shows a small area of mild intensity apical ischemia. Cardiac catheterization 2021 shows normal coronary arteries. Overall, no cardiac contraindications to proceed with ECT therapy. No clear explanation as to why she had a small troponin leak in the past after ECT. Possible coronary vasospasm from ECT? Cannot predict recurrence either. If clinically indicated, may pursue ECT therapy considering the above. At this moment the patient has enough criteria for ECT. Probably will need to revoke her CV and filed for Section 7 and 8 since the patient is not compliant with medication grossly psychotic. But after discussing the case with her healthcare proxy and the legal team, on November 05 we are doing the paperwork to affirmed healthcare proxy. 11/09/2023 Changed 5 minute checks may need CV affirmed 11/10/2023 Continue plan of care Reason for continued inpatient stay Substantial Risk for: harm to self, rapid decompensation and med/psych decompensation Time Spent With Patient Time: Total time managing care of this patient today ____ minutes.
[2023-11-10 20:00] VITALS: BP 150/92; PULSE 92; RESP 16; TEMP 36.3; O2SAT 99
[2023-11-10 23:00] VITALS: BP 133/85
--- NOTE | 2023-11-11 02:46 | PC.NURSE ---
Patient had refused HS medications, snacks and to engage with this engineering writer. Another staff member was successful in getting patient to speak about her sister being the eldest child, herself as the middle child and her youngest brother Andrei whom she said she loved. Steffi spoke of her dog a Malina named Max and how much she missed him. Patient briefly brightened was engaged and expansive before returning to intently staring @ staff. Patient was offered PRNs for sleep and anxiety and initially said she would take them but once pulled and handed the medications she adamantly refused. Patient did eventually retire to bed and is sleeping @ present.
[2023-11-11 08:10] VITALS: BP 118/73; PULSE 144; RESP 20; TEMP 36.2; O2SAT 97
[2023-11-11] MEDS: LORazepam 1 MG TABLET PO ×3 (08:26→18:35)
--- NOTE | 2023-11-11 10:24 | HO.PSYCHPN ---
Subjective Subjective Date of Service: 11/11/23 Reason For Visit: Bipolar disorder depressed with psychotic features Subjective Notes: Conditional Voluntary Healthcare Proxy: Yes Interim History: Patient markedly more psychotically agitated intrusive hallucinations constantly thinking people are her brother is she going to be has been refusing medication was eating and drinking this morning Medication Compliance: No Mental Status Exam Mental Status Exam Patient Appearance: Appropriate Patient Orientation: Person and Situation Level of Consciousness: Awake Patient Behavior: Talkative and Wandering Mood Description: Suspicious, Fearful and Apprehensive Affect Description: Hostile and Anxious Patient Cognition Impaired: Yes Ability to Follow Directions: Fair Speech Pattern: Clear, Animated and Pressured Hallucinations: Auditory Delusions: Paranoid Ideation and Ideas of Reference Thought Process: Illogical, Distracted and Slowed Thinking Thought Content: positive for Flight [place] Ideas, positive for Loose Associations and positive for Thought Blocking Judgement: Poor Diagnostics Vital Signs (24Hr): Vital Signs - 24 hr 11/10/23 20:00 11/10/23 23:00 11/11/23 08:10 Temperature 97.3 F 97.2 F Pulse Rate 92 144 H Respiratory Rate 16 20 Blood Pressure 150/92 H 133/85 118/73 Pulse Oximetry 99 97 Oxygen Delivery Method Room Air Room Air BMI result Body Mass Index 21.5 Labs 11/11/23 15:25 11/11/23 15:25 Medications Medications Current Medications Acetaminophen (Acetaminophen 325 Mg Tablet) 650 mg PO Q6H PRN PRN Reason: Headache/Pain Mild Scale (1-3) Acetaminophen (Acetaminophen 325 Mg Tablet) 650 mg PO Q6H PRN PRN Reason: Fever Or Pain Al Hydroxide/Mg Hydroxide (Magnesium Hydrox/Alum Hydrox 30 Ml Oral.Susp) 30 ml PO Q6H PRN PRN Reason: Heartburn/Nausea Cyclobenzaprine HCl (Cyclobenzaprine Hcl 10 Mg Tablet) 10 mg PO TID PRN PRN Reason: muscle spasm Docusate Sodium (Docusate Sodium 100 Mg Capsule) 100 mg PO BID [facility] Last Admin: 11/11/23 09:01 Dose: Not Given Gabapentin (Gabapentin 300 Mg Capsule) 600 mg PO BEDTIME [facility] Last Admin: 11/10/23 21:11 Dose: Not Given Hydroxyzine HCl (Hydroxyzine Hcl 25 Mg Tablet) 25 mg PO Q6H PRN PRN Reason: Anxiety Last Admin: 05/07/24 05:40 Dose: 25 mg Ibuprofen (Ibuprofen 400 Mg Tablet) 400 mg PO TID [facility] Last Admin: 11/11/23 08:39 Dose: Not Given Loratadine (Loratadine 10 Mg Tablet) 10 mg PO DAILY PRN PRN Reason: Allergy Symptoms Lorazepam (Lorazepam 1 Mg Tablet) 1 mg PO TID [facility] Last Admin: 11/11/23 08:26 Dose: 1 mg Magnesium Hydroxide (Milk Of Magnesia 30 Ml Oral.Susp) 30 ml PO DAILY PRN PRN Reason: Constipation Omeprazole (Omeprazole 20 Mg Capsule.Dr) 20 mg PO BID@0630,1630 [facility] Last Admin: 11/11/23 06:48 Dose: Not Given Oxycodone HCl (Oxycodone Hcl Immed Release 5 Mg Tablet) 2.5 mg PO Q8H PRN PRN Reason: Severe Pain (Scale Score 7-10) Quetiapine Fumarate (Quetiapine Fumarate 200 Mg Tablet) 200 mg PO BEDTIME [facility] Last Admin: 11/10/23 21:11 Dose: Not Given Thiamine HCl (Thiamine Hcl 100 Mg Tablet) 100 mg PO BID [facility] Last Admin: 11/11/23 09:01 Dose: Not Given Trazodone HCl (Trazodone Hcl 50 Mg Tablet) 50 mg PO BEDTIME MRX1 PRN PRN Reason: Insomnia Allergies Allergies Allergy/AdvReac Type Severity Reaction Status Date / Time bee pollen Allergy Severe Anaphylaxis Verified 01/25/22 15:16 levofloxacin [From Levaquin] Allergy Severe Itching Verified 01/25/22 15:16 enoxaparin [From Lovenox] Allergy Intermediate Rash Verified 01/25/22 15:16 Penicillins Allergy Unknown Unknown Verified 01/25/22 15:16 Seasonal Allergies Allergy Runny Nose Verified 01/25/22 15:16 venlafaxine [From Effexor] Allergy Constipatio Verified 01/25/22 15:16 n Assessment & Plan Assessment & Plan (1) Bipolar 1 disorder, depressed, severe: Status: Acute Code(s): F31.4 - Bipolar disorder, current episode depressed, severe, without psychotic features Plan Cardiac studies reviewed. Prior echocardiogram with LVEF 55-60% with no wall motion abnormalities and otherwise unremarkable. Myocardial perfusion imaging study shows a small area of mild intensity apical ischemia. Cardiac catheterization 2021 shows normal coronary arteries. Overall, no cardiac contraindications to proceed with ECT therapy. No clear explanation as to why she had a small troponin leak in the past after ECT. Possible coronary vasospasm from ECT? Cannot predict recurrence either. If clinically indicated, may pursue ECT therapy considering the above. At this moment the patient has enough criteria for ECT. Probably will need to rev paz her CV and filed for Section 7 and 8 since the patient is not compliant with medication grossly psychotic. But after discussing the case with her healthcare proxy and the legal team, on November 05 we are doing the paperwork to affirmed healthcare proxy. 11/09/2023 Changed 5 minute checks may need CV affirmed 11/10/2023 Continue plan of care 11/11/2023 Start Risperdal has been refusing Seroquel quite psychotic appears somewhat manic markedly disorganized auditory hallucination would benefit from hospital-based treatment plan or affirmed healthcare proxy Reason for continued inpatient stay Substantial Risk for: inability to function, rapid decompensation and med/psych decompensation Time Spent With Patient Time: Total time managing care of this patient today ____ minutes.
[2023-11-11 10:30] VITALS: PULSE 118
[2023-11-11] MEDS: risperiDONE 1 MG TABLET PO ×2 (11:04→18:36)
[2023-11-11 14:43] VITALS: PULSE 101; O2SAT 94
[2023-11-11] MEDS: Ibuprofen 400 MG TABLET PO (14:43)
[2023-11-11 15:47] LABS: Alanine Aminotransferase 29 U/L (0-31); Albumin Level 3.8 g/dL (3.5-5.0); Alkaline Phosphatase 106 U/L (39-117); Anion Gap 17 (12-20); Aspartate Amino Transferase 23 U/L (5-31); Bilirubin Total 0.2 mg/dL (0.0-1.0); Blood Urea Nitrogen 27 mg/dL (9-16); Calcium 9.5 mg/dL (8.4-10.2); Carbon Dioxide 22 mmol/L (22-29); Chloride 105 mmol/L (96-108); Creatinine Clr Calc Pharmacy 67.2; Estimated Glomerular Filt Rate > 60; Glucose Random 65 mg/dL (60-115); Potassium 3.4 mmol/L (3.3-5.1); Sodium 141 mmol/L (135-145); Total Protein 6.5 g/dL (6.5-8.0)
[2023-11-11 15:51] LABS: Basophils Percent Auto 0.3 % (0-2); Eosinophils Percent Auto 0.3 % (0-4); Hemoglobin 12.4 g/dl (12.0-16.0); Imm Gran Abs Auto 0.08 X10*3/uL (0.00-0.03); Imm Gran Pct Auto 0.6 % (0.0-0.4); Lymphocytes Absolute Auto 1.6 X10*3/uL (1.2-4.9); Lymphocytes Percent Auto 13.2 % (20-40); MANUAL DIFF FLAG SCAN; Mean Corpuscular HGB Conc 34.4 g/dl (31.0-35.0); Mean Corpuscular Hemoglobin 30.7 pg (27.0-33.0); Mean Corpuscular Volume 89.1 fL (80.0-98.0); Mean Platelet Volume 9.1 fL (9.4-12.3); Monocytes Absolute Auto 1.7 X10*3/uL (0.1-1.2); Neutrophils Absolute Auto 8.9 x10*3/uL (2.0-8.3); Neutrophils Percent Auto 71.6 % (45-73); Platelet Count 249 X10*3/uL (160-400); Red Blood Count 4.04 X10*6/uL (4.20-5.50); Red Cell Distribution Width 12.8 % (11.0-16.0); SCAN SMEAR FLAG 1; White Blood Count 12.4 X10*3/uL (4.8-10.8)
[2023-11-11 16:13] LABS: SLIDE REVIEW VERIFIED
--- NOTE | 2023-11-11 18:41 | PC.NURSE ---
Patient had a shower after lunch and then slept until supper. When she woke up she starting asking why we chopped off her head yesterday and why we gave her Thorazine. I tried to clarify several times that she did not get Thorazine but she took Ativan and Risperdal, which did help her. She was confronting us, pacing and approaching peers and repeatedly asking why we gave her Thorazine. Puja Amado MD updated and new orders were obtained for Ativan 1mg PO and Risperdal 1 mg PO which were given at 1835 today. Effect is pending. The patient did eat most of her supper and drank two bottles of water. She is now in the sensory room with her 1:1 eating a cookie.
[2023-11-11 20:00] VITALS: BP 108/64; PULSE 87; RESP 18; TEMP 36.6; O2SAT 99
[2023-11-12] MEDS: risperiDONE 1 MG TABLET PO (05:02)
[2023-11-12] MEDS: LORazepam 1 MG TABLET PO (05:03)
[2023-11-12] MEDS: Omeprazole 20 MG CAPSULE.DR PO (05:03)
--- NOTE | 2023-11-12 05:14 | PC.NURSE ---
patient awake and cooperative last night for V/S and check-in, then sound asleep at HS med pass, patient had received extra PRNs on day shift d/t aggression, patient up at 0430, confused, restless, DOC approved giving missed Ativan and Risperdol, patient took medications after some reassurance
[2023-11-12 07:39] VITALS: BP 121/72; PULSE 94; RESP 16; TEMP 35.8; O2SAT 98
--- NOTE | 2023-11-12 09:15 | PC.NURSE ---
Refused meds x [address] Mccabe notified.
--- NOTE | 2023-11-12 14:09 | P.PNPSI_ITS ---
Subjective Subjective Date of Service: 11/12/23 Reason For Visit: Bipolar disorder depressed with psychotic features Subjective Notes: Conditional Voluntary Interim History: The nursing staff reported the patient had been anxious, psychotic responding to internal stimuli. She has refused her medication. The occupational therapist reported that on groups she was very disorganized unable to participate in groups. On interview the patient had delayed response and she stated that she has not feeling fine, she admitted that she is noncompliant with medication unable to provide an answer why she does not like her medication. Mental Status Exam Mental Status Exam Patient Appearance: Appropriate Patient Orientation: Person and Situation Level of Consciousness: Awake Patient Behavior: Guarded Mood Description: Withdrawn Affect Description: Blunted Patient Cognition Impaired: Yes Ability to Follow Directions: Good Speech Pattern: Clear Hallucinations: Auditory Delusions: Paranoid Ideation and Ideas of Reference Thought Process: Distracted and Slowed Thinking Thought Content: positive for [place] and positive for Poverty of Content Judgement: Fair Diagnostics Vital Signs (24Hr): Vital Signs - 24 hr 11/11/23 14:43 11/11/23 20:00 11/12/23 07:39 Temperature 97.9 F 96.5 F L Pulse Rate 101 H 87 94 Respiratory Rate 18 16 Blood Pressure 108/64 121/72 Pulse Oximetry 94 99 98 Oxygen Delivery Method Room Air Room Air Room Air BMI result Body Mass Index 21.5 Labs 11/11/23 15:25 11/11/23 15:25 Labs: Laboratory Results - last 48 hr 11/11/23 15:25 WBC 12.4 H RBC 4.04 L Hgb 12.4 Hct 36.0 L MCV 89.1 MCH 30.7 MCHC 34.4 RDW 12.8 Plt Count 249 MPV 9.1 L Immature Gran % (Auto) 0.6 H Neut % (Auto) 71.6 Lymph % (Auto) 13.2 L [place] % (Auto) 14.0 H Eos % (Auto) 0.3 Baso % (Auto) 0.3 Lymph # (Auto) 1.6 [place] # (Auto) 1.7 H Eos # (Auto) 0.0 Baso # (Auto) 0.0 Abs Immat Gran (auto) 0.08 H Absolute Neuts (auto) 8.9 H Absolute Nucleated RBC 0.000 Nucleated RBC % (auto) 0.0 Smear Tech's Comments VERIFIED Sodium 141 Potassium 3.4 Chloride 105 Carbon Dioxide 22 Anion Gap 17 BUN 27 H Creatinine 0.77 Estim Creat Clear Calc 67.2 Estimated GFR > 60 Random Glucose 65 Calcium 9.5 Total Bilirubin 0.2 AST 23 ALT 29 Alkaline Phosphatase 106 Total Protein 6.5 Albumin 3.8 Medications Medications Current Medications Acetaminophen (Acetaminophen 325 Mg Tablet) 650 mg PO Q6H PRN PRN Reason: Headache/Pain Mild Scale (1-3) Acetaminophen (Acetaminophen 325 Mg Tablet) 650 mg PO Q6H PRN PRN Reason: Fever Or Pain Al Hydroxide/Mg Hydroxide (Magnesium Hydrox/Alum Hydrox 30 Ml Oral.Susp) 30 ml PO Q6H PRN PRN Reason: Heartburn/Nausea Cyclobenzaprine HCl (Cyclobenzaprine Hcl 10 Mg Tablet) 10 mg PO TID PRN PRN Reason: muscle spasm Docusate Sodium (Docusate Sodium 100 Mg Capsule) 100 mg PO BID [facility] Last Admin: 11/12/23 08:36 Dose: Not Given Gabapentin (Gabapentin 300 Mg Capsule) 600 mg PO BEDTIME [facility] Last Admin: 11/11/23 22:21 Dose: Not Given Hydroxyzine HCl (Hydroxyzine Hcl 25 Mg Tablet) 25 mg PO Q6H PRN PRN Reason: Anxiety Last Admin: 11/06/23 05:40 Dose: 25 mg Ibuprofen (Ibuprofen 400 Mg Tablet) 400 mg PO TID [facility] Last Admin: 11/12/23 08:36 Dose: Not Given Loratadine (Loratadine 10 Mg Tablet) 10 mg PO DAILY PRN PRN Reason: Allergy Symptoms Lorazepam (Lorazepam 1 Mg Tablet) 1 mg PO TID [facility] Last Admin: 11/12/23 08:36 Dose: Not Given Magnesium Hydroxide (Milk Of Magnesia 30 Ml Oral.Susp) 30 ml PO DAILY PRN PRN Reason: Constipation Omeprazole (Omeprazole 20 Mg Capsule.Dr) 20 mg PO BID@0630,1630 [facility] Last Admin: 11/12/23 05:03 Dose: 20 mg Oxycodone HCl (Oxycodone Hcl Immed Release 5 Mg Tablet) 2.5 mg PO Q8H PRN PRN Reason: Severe Pain (Scale Score 7-10) Risperidone (Risperidone 1 Mg Tablet) 1 mg PO BID [facility] Last Admin: 11/12/23 08:36 Dose: Not Given Thiamine HCl (Thiamine Hcl 100 Mg Tablet) 100 mg PO BID [facility] Last Admin: 11/12/23 08:36 Dose: Not Given Trazodone HCl (Trazodone Hcl 50 Mg Tablet) 50 mg PO BEDTIME MRX1 PRN PRN Reason: Insomnia Allergies Allergies Allergy/AdvReac Type Severity Reaction Status Date / Time bee pollen Allergy Severe Anaphylaxis Verified 01/25/22 15:16 levofloxacin [From Levaquin] Allergy Severe Itching Verified 01/25/22 15:16 enoxaparin [From Lovenox] Allergy Intermediate Rash Verified 01/25/22 15:16 Penicillins Allergy Unknown Unknown Verified 01/25/22 15:16 Seasonal Allergies Allergy Runny Nose Verified 01/25/22 15:16 venlafaxine [From Effexor] Allergy Constipatio Verified 01/25/22 15:16 n Assessment & Plan Assessment & Plan (1) Bipolar 1 disorder, depressed, severe: Status: Acute Code(s): F31.4 - Bipolar disorder, current episode depressed, severe, without psychotic features Plan Cardiac studies reviewed. Prior echocardiogram with LVEF 55-60% with no wall motion abnormalities and otherwise unremarkable. Myocardial perfusion imaging study shows a small area of mild intensity apical ischemia. Cardiac catheterization 2021 shows normal coronary arteries. Overall, no cardiac contraindications to proceed with ECT therapy. No clear explanation as to why she had a small troponin leak in the past after ECT. Possible coronary vasospasm from ECT? Cannot predict recurrence either. If clinically indicated, may pursue ECT therapy considering the above. At this moment the patient has enough criteria for ECT. Probably will need to rev paz her CV and filed for Section 7 and 8 since the patient is not compliant with medication grossly psychotic. But after discussing the case with her healthcare proxy and the legal team, on November 05 we are doing the paperwork to affirmed healthcare proxy. Encourage compliance with medication. Reason for continued inpatient stay Substantial Risk for: inability to function, rapid decompensation and med/psych decompensation Time Spent With Patient Time: Total time managing care of this patient today __20__ minutes.
[2023-11-12 20:00] VITALS: BP 132/68; PULSE 87; RESP 16; TEMP 36.7; O2SAT 98
[2023-11-13] MEDS: LORazepam 1 MG TABLET PO ×2 (07:59→16:34)
[2023-11-13] MEDS: risperiDONE 1 MG TABLET PO (07:59)
[2023-11-13 08:10] VITALS: BP 126/77; PULSE 102; RESP 20; TEMP 36.5; O2SAT 93
--- NOTE | 2023-11-13 12:31 | HO.PSYCHPN ---
Subjective Subjective Date of Service: 11/13/23 Reason For Visit: Bipolar disorder depressed with psychotic features Subjective Notes: Conditional Voluntary Healthcare Proxy: Yes Interim History: The nursing staff reported non compliance with her antipsychotics and mood stabilizers. She was seen in the unit grossly psychotic, disorganized. On interview, she was internally preoccupied, labile. Waiting for the affirmation of the HCP. Mental Status Exam Mental Status Exam Patient Appearance: Unkempt Patient Orientation: Person and Situation Level of Consciousness: Awake and Appropriate Patient Behavior: Guarded and Passive Mood Description: Suspicious Affect Description: Labile Patient Cognition Impaired: Yes Ability to Follow Directions: Good Speech Pattern: Clear Hallucinations: Auditory and Visual Delusions: Paranoid Ideation and Ideas of Reference Thought Process: Distracted and Evasive Thought Content: positive for [place] and positive for Thought Blocking Judgement: Poor Diagnostics Vital Signs (24Hr): Vital Signs - 24 hr 11/12/23 20:00 11/13/23 08:10 Temperature 98.1 F 97.7 F Pulse Rate 87 102 H Respiratory Rate 16 20 Blood Pressure 132/68 126/77 Pulse Oximetry 98 93 Oxygen Delivery Method Room Air Room Air BMI result Body Mass Index 21.5 Labs 11/11/23 15:25 11/11/23 15:25 Labs: Laboratory Results - last 48 hr 11/11/23 15:25 WBC 12.4 H RBC 4.04 L Hgb 12.4 Hct 36.0 L MCV 89.1 MCH 30.7 MCHC 34.4 RDW 12.8 Plt Count 249 MPV 9.1 L Immature Gran % (Auto) 0.6 H Neut % (Auto) 71.6 Lymph % (Auto) 13.2 L [place] % (Auto) 14.0 H Eos % (Auto) 0.3 Baso % (Auto) 0.3 Lymph # (Auto) 1.6 [place] # (Auto) 1.7 H Eos # (Auto) 0.0 Baso # (Auto) 0.0 Abs Immat Gran (auto) 0.08 H Absolute Neuts (auto) 8.9 H Absolute Nucleated RBC 0.000 Nucleated RBC % (auto) 0.0 Smear Tech's Comments VERIFIED Sodium 141 Potassium 3.4 Chloride 105 Carbon Dioxide 22 Anion Gap 17 BUN 27 H Creatinine 0.77 Estim Creat Clear Calc 67.2 Estimated GFR > 60 Random Glucose 65 Calcium 9.5 Total Bilirubin 0.2 AST 23 ALT 29 Alkaline Phosphatase 106 Total Protein 6.5 Albumin 3.8 Medications Medications Current Medications Acetaminophen (Acetaminophen 325 Mg Tablet) 650 mg PO Q6H PRN PRN Reason: Headache/Pain Mild Scale (1-3) Acetaminophen (Acetaminophen 325 Mg Tablet) 650 mg PO Q6H PRN PRN Reason: Fever Or Pain Al Hydroxide/Mg Hydroxide (Magnesium Hydrox/Alum Hydrox 30 Ml Oral.Susp) 30 ml PO Q6H PRN PRN Reason: Heartburn/Nausea Cyclobenzaprine HCl (Cyclobenzaprine Hcl 10 Mg Tablet) 10 mg PO TID PRN PRN Reason: muscle spasm Docusate Sodium (Docusate Sodium 100 Mg Capsule) 100 mg PO BID [facility] Last Admin: 11/13/23 08:06 Dose: Not Given Gabapentin (Gabapentin 300 Mg Capsule) 600 mg PO BEDTIME [facility] Last Admin: 11/12/23 22:04 Dose: Not Given Hydroxyzine HCl (Hydroxyzine Hcl 25 Mg Tablet) 25 mg PO Q6H PRN PRN Reason: Anxiety Last Admin: 11/06/23 05:40 Dose: 25 mg Ibuprofen (Ibuprofen 400 Mg Tablet) 400 mg PO TID [facility] Last Admin: 11/13/23 08:06 Dose: Not Given Loratadine (Loratadine 10 Mg Tablet) 10 mg PO DAILY PRN PRN Reason: Allergy Symptoms Lorazepam (Lorazepam 1 Mg Tablet) 1 mg PO TID [facility] Last Admin: 11/13/23 07:59 Dose: 1 mg Magnesium Hydroxide (Milk Of Magnesia 30 Ml Oral.Susp) 30 ml PO DAILY PRN PRN Reason: Constipation Omeprazole (Omeprazole 20 Mg Capsule.Dr) 20 mg PO BID@0630,1630 [facility] Last Admin: 11/13/23 05:48 Dose: Not Given Oxycodone HCl (Oxycodone Hcl Immed Release 5 Mg Tablet) 2.5 mg PO Q8H PRN PRN Reason: Severe Pain (Scale Score 7-10) Risperidone (Risperidone 1 Mg Tablet) 1 mg PO BID [facility] Last Admin: 11/13/23 07:59 Dose: 1 mg Thiamine HCl (Thiamine Hcl 100 Mg Tablet) 100 mg PO BID [facility] Last Admin: 11/13/23 08:07 Dose: Not Given Trazodone HCl (Trazodone Hcl 50 Mg Tablet) 50 mg PO BEDTIME MRX1 PRN PRN Reason: Insomnia Allergies Allergies Allergy/AdvReac Type Severity Reaction Status Date / Time bee pollen Allergy Severe Anaphylaxis Verified 01/25/22 15:16 levofloxacin [From Levaquin] Allergy Severe Itching Verified 01/25/22 15:16 enoxaparin [From Lovenox] Allergy Intermediate Rash Verified 01/25/22 15:16 Penicillins Allergy Unknown Unknown Verified 01/25/22 15:16 Seasonal Allergies Allergy Runny Nose Verified 01/25/22 15:16 venlafaxine [From Effexor] Allergy Constipatio Verified 01/25/22 15:16 n Assessment & Plan Assessment & Plan (1) Bipolar 1 disorder, depressed, severe: Status: Acute Code(s): F31.4 - Bipolar disorder, current episode depressed, severe, without psychotic features Plan Cardiac studies reviewed. Prior echocardiogram with LVEF 55-60% with no wall motion abnormalities and otherwise unremarkable. Myocardial perfusion imaging study shows a small area of mild intensity apical ischemia. Cardiac catheterization 2021 shows normal coronary arteries. Overall, no cardiac contraindications to proceed with ECT therapy. No clear explanation as to why she had a small troponin leak in the past after ECT. Possible coronary vasospasm from ECT? Cannot predict recurrence either. If clinically indicated, may pursue ECT therapy considering the above. At this moment the patient has enough criteria for ECT. Probably will need to rev paz her CV and filed for Section 7 and 8 since the patient is not compliant with medication grossly psychotic. But after discussing the case with her healthcare proxy and the legal team, on November 05 we are doing the paperwork to affirmed healthcare proxy. Encourage compliance with medication. Reason for continued inpatient stay Substantial Risk for: inability to function, rapid decompensation and med/psych decompensation Time Spent With Patient Time: Total time managing care of this patient today __20__ minutes.
[2023-11-14] MEDS: Omeprazole 20 MG CAPSULE.DR PO (05:45)
[2023-11-14 08:00] VITALS: BP 157/58; PULSE 108; RESP 20; TEMP 36.4; O2SAT 99
[2023-11-14] MEDS: risperiDONE 1 MG TABLET PO (08:02)
[2023-11-14] MEDS: LORazepam 1 MG TABLET PO ×3 (08:02→21:29)
[2023-11-14] MEDS: Paliperidone Palmitate 234 MG/1.5 ML SYRINGE IM (10:00)
--- NOTE | 2023-11-14 12:06 | MHC.CLN ---
F/U DIET=REGULAR. ADDING ENSURE BID TO INCREASE NUTRITIONAL INTAKE. SUPPLEMENT PROVIDES 700 KCALS, 40 G PROTEIN. INTAKE USUALLY POOR BUT WILL EAT AT TIMES. REFUSED LUNCH TODAY. HX REFUSING MEDS. FOLLOW FOR TREATMENT PLAN AND INTAKE OF MEALS. RD TO FOLLOW UP WEEKLY.
--- NOTE | 2023-11-14 12:27 | P.PNPSI_ITS ---
Subjective Subjective Date of Service: 11/14/23 Reason For Visit: Bipolar disorder depressed with psychotic features Subjective Notes: Conditional Voluntary Healthcare Proxy: Yes (Affirmed healthcare proxy by court) Interim History: The nursing staff reported the patient took medications only yesterday in the morning and later on he refused in the evening and today in the morning. Affect has been labile he slept in the morning yesterday he had been paranoid refusing medications. She slept all night long. Today in the morning she was stating that she is going to leave today and she was posturing grossly psychotic. The social work instructor reported the permission of the healthcare proxy was done and now weekend in forced it. At this moment we are going to start antipsychotics as per information of healthcare proxy. Mental Status Exam Mental Status Exam Patient Appearance: Appropriate Patient Orientation: Person and Situation Level of Consciousness: Awake and Restless Patient Behavior: Guarded and Passive Mood Description: Withdrawn and Angry Affect Description: Labile Patient Cognition Impaired: Yes Ability to Follow Directions: Fair Speech Pattern: Impoverished and Rambling Hallucinations: Auditory Delusions: Paranoid Ideation, Grandiose and Ideas of Reference Thought Process: Distracted and Slowed Thinking Thought Content: positive for Poverty of Content, positive for Thought Blocking, positive for Tangential and positive for Disorganized Judgement: Poor Diagnostics Vital Signs (24Hr): Vital Signs - 24 hr 11/14/23 08:00 Temperature 97.5 F Pulse Rate 108 H Respiratory Rate 20 Blood Pressure 157/58 H Pulse Oximetry 99 Oxygen Delivery Method Room Air BMI result Body Mass Index 21.5 Labs 11/11/23 15:25 11/11/23 15:25 Medications Medications Current Medications Acetaminophen (Acetaminophen 325 Mg Tablet) 650 mg PO Q6H PRN PRN Reason: Headache/Pain Mild Scale (1-3) Acetaminophen (Acetaminophen 325 Mg Tablet) 650 mg PO Q6H PRN PRN Reason: Fever Or Pain Al Hydroxide/Mg Hydroxide (Magnesium Hydrox/Alum Hydrox 30 Ml Oral.Susp) 30 ml PO Q6H PRN PRN Reason: Heartburn/Nausea Cyclobenzaprine HCl (Cyclobenzaprine Hcl 10 Mg Tablet) 10 mg PO TID PRN PRN Reason: muscle spasm Docusate Sodium (Docusate Sodium 100 Mg Capsule) 100 mg PO BID [facility] Last Admin: 11/14/23 08:07 Dose: Not Given Gabapentin (Gabapentin 300 Mg Capsule) 600 mg PO BEDTIME [facility] Last Admin: 11/13/23 22:07 Dose: Not Given Hydroxyzine HCl (Hydroxyzine Hcl 25 Mg Tablet) 25 mg PO Q6H PRN PRN Reason: Anxiety Last Admin: 11/06/23 05:40 Dose: 25 mg Ibuprofen (Ibuprofen 400 Mg Tablet) 400 mg PO TID [facility] Last Admin: 11/14/23 08:07 Dose: Not Given Loratadine (Loratadine 10 Mg Tablet) 10 mg PO DAILY PRN PRN Reason: Allergy Symptoms Lorazepam (Lorazepam 1 Mg Tablet) 1 mg PO TID [facility] Last Admin: 11/14/23 08:02 Dose: 1 mg Magnesium Hydroxide (Milk Of Magnesia 30 Ml Oral.Susp) 30 ml PO DAILY PRN PRN Reason: Constipation Omeprazole (Omeprazole 20 Mg Capsule.Dr) 20 mg PO BID@0630,1630 [facility] Last Admin: 11/14/23 05:45 Dose: 20 mg Oxycodone HCl (Oxycodone Hcl Immed Release 5 Mg Tablet) 2.5 mg PO Q8H PRN PRN Reason: Severe Pain (Scale Score 7-10) Thiamine HCl (Thiamine Hcl 100 Mg Tablet) 100 mg PO BID [facility] Last Admin: 11/14/23 08:08 Dose: Not Given Trazodone HCl (Trazodone Hcl 50 Mg Tablet) 50 mg PO BEDTIME MRX1 PRN PRN Reason: Insomnia Allergies Allergies Allergy/AdvReac Type Severity Reaction Status Date / Time bee pollen Allergy Severe Anaphylaxis Verified 01/25/22 15:16 levofloxacin [From Levaquin] Allergy Severe Itching Verified 01/25/22 15:16 enoxaparin [From Lovenox] Allergy Intermediate Rash Verified 01/25/22 15:16 Penicillins Allergy Unknown Unknown Verified 01/25/22 15:16 Seasonal Allergies Allergy Runny Nose Verified 01/25/22 15:16 venlafaxine [From Effexor] Allergy Constipatio Verified 01/25/22 15:16 n Assessment & Plan Assessment & Plan (1) Bipolar 1 disorder, depressed, severe: Status: Acute Code(s): F31.4 - Bipolar disorder, current episode depressed, severe, without psychotic features Plan Cardiac studies reviewed. Prior echocardiogram with LVEF 55-60% with no wall motion abnormalities and otherwise unremarkable. Myocardial perfusion imaging study shows a small area of mild intensity apical ischemia. Cardiac catheterization 2021 shows normal coronary arteries. Overall, no cardiac contraindications to proceed with ECT therapy. No clear explanation as to why she had a small troponin leak in the past after ECT. Possible coronary vasospasm from ECT? Cannot predict recurrence either. If clinically indicated, may pursue ECT therapy considering the above. At this moment the patient has enough criteria for ECT. Probably will need to rev paz her CV and filed for Section 7 and 8 since the patient is not compliant with medication grossly psychotic. But after discussing the case with her healthcare proxy and the legal team, on November 05 we are doing the paperwork to affirmed healthcare proxy. Encourage compliance with medication. On November 13 we got the information of the healthcare proxy we are going to start Invega Sustenna and discontinue Risperdal p.o. Reason for continued inpatient stay Substantial Risk for: inability to function, rapid decompensation and med/psych decompensation Time Spent With Patient Time: Total time managing care of this patient today __20__ minutes.
[2023-11-14 20:00] VITALS: BP 145/71; PULSE 95; RESP 18; TEMP 36.6; O2SAT 100
[2023-11-15] MEDS: hydrOXYzine HCL 25 MG TABLET PO (05:57)
[2023-11-15] MEDS: Omeprazole 20 MG CAPSULE.DR PO (05:57)
[2023-11-15 07:00] VITALS: BMI 20.9
[2023-11-15 08:42] VITALS: BP 107/77; PULSE 120; RESP 20; TEMP 36.3; O2SAT 99
--- NOTE | 2023-11-15 13:24 | HO.PSYCHPN ---
Subjective Subjective Date of Service: 11/15/23 Reason For Visit: Bipolar disorder depressed with psychotic features Subjective Notes: Conditional Voluntary (By affirmed healthcare proxy) Healthcare Proxy: Yes Interim History: The patient had been on compliant with all her medications. She refused antipsychotics. She showered yesterday. On interview the patient looks internally preoccupied grossly psychotic. Today we are going to have a family meeting with her sister and explained the treatment plan and goals of treatment. Mental Status Exam Mental Status Exam Patient Appearance: Appropriate Patient Orientation: Person and Situation Level of Consciousness: Awake and Appropriate Patient Behavior: Guarded and Passive Mood Description: Withdrawn Affect Description: Constricted Patient Cognition Impaired: Yes Ability to Follow Directions: Poor Speech Pattern: Clear and Impoverished Hallucinations: Auditory Delusions: Paranoid Ideation, Grandiose and Ideas of Reference Thought Process: Illogical, Distracted and Evasive Thought Content: positive for [place]ose [place], positive for Thought Blocking and positive for Tangential Judgement: Poor Diagnostics Vital Signs (24Hr): Vital Signs - 24 hr 11/14/23 20:00 11/15/23 08:42 Temperature 97.9 F 97.4 F Pulse Rate 95 120 H Respiratory Rate 18 20 Blood Pressure 145/71 H 107/77 Pulse Oximetry 100 99 Oxygen Delivery Method Room Air Room Air BMI result Body Mass Index 20.9 Labs 11/11/23 15:25 11/11/23 15:25 Medications Medications Current Medications Acetaminophen (Acetaminophen 325 Mg Tablet) 650 mg PO Q6H PRN PRN Reason: Headache/Pain Mild Scale (1-3) Acetaminophen (Acetaminophen 325 Mg Tablet) 650 mg PO Q6H PRN PRN Reason: Fever Or Pain Al Hydroxide/Mg Hydroxide (Magnesium Hydrox/Alum Hydrox 30 Ml Oral.Susp) 30 ml PO Q6H PRN PRN Reason: Heartburn/Nausea Cyclobenzaprine HCl (Cyclobenzaprine Hcl 10 Mg Tablet) 10 mg PO TID PRN PRN Reason: muscle spasm Docusate Sodium (Docusate Sodium 100 Mg Capsule) 100 mg PO BID [facility] Last Admin: 11/15/23 08:59 Dose: Not Given Gabapentin (Gabapentin 300 Mg Capsule) 600 mg PO BEDTIME [facility] Last Admin: 11/14/23 22:24 Dose: Not Given Hydroxyzine HCl (Hydroxyzine Hcl 25 Mg Tablet) 25 mg PO Q6H PRN PRN Reason: Anxiety Last Admin: 11/15/23 05:57 Dose: 25 mg Ibuprofen (Ibuprofen 400 Mg Tablet) 400 mg PO TID [facility] Last Admin: 11/15/23 08:59 Dose: Not Given Loratadine (Loratadine 10 Mg Tablet) 10 mg PO DAILY PRN PRN Reason: Allergy Symptoms Magnesium Hydroxide (Milk Of Magnesia 30 Ml Oral.Susp) 30 ml PO DAILY PRN PRN Reason: Constipation Omeprazole (Omeprazole 20 Mg Capsule.Dr) 20 mg PO BID@0630,1630 [facility] Last Admin: 11/15/23 05:57 Dose: 20 mg Thiamine HCl (Thiamine Hcl 100 Mg Tablet) 100 mg PO BID [facility] Last Admin: 11/15/23 09:00 Dose: Not Given Trazodone HCl (Trazodone Hcl 50 Mg Tablet) 50 mg PO BEDTIME MRX1 PRN PRN Reason: Insomnia Allergies Allergies Allergy/AdvReac Type Severity Reaction Status Date / Time bee pollen Allergy Severe Anaphylaxis Verified 01/25/22 15:16 levofloxacin [From Levaquin] Allergy Severe Itching Verified 01/25/22 15:16 enoxaparin [From Lovenox] Allergy Intermediate Rash Verified 01/25/22 15:16 Penicillins Allergy Unknown Unknown Verified 01/25/22 15:16 Seasonal Allergies Allergy Runny Nose Verified 01/25/22 15:16 venlafaxine [From Effexor] Allergy Constipatio Verified 01/25/22 15:16 n Assessment & Plan Assessment & Plan (1) Bipolar 1 disorder, depressed, severe: Status: Acute Code(s): F31.4 - Bipolar disorder, current episode depressed, severe, without psychotic features Plan Cardiac studies reviewed. Prior echocardiogram with LVEF 55-60% with no wall motion abnormalities and otherwise unremarkable. Myocardial perfusion imaging study shows a small area of mild intensity apical ischemia. Cardiac catheterization 2021 shows normal coronary arteries. Overall, no cardiac contraindications to proceed with ECT therapy. No clear explanation as to why she had a small troponin leak in the past after ECT. Possible coronary vasospasm from ECT? Cannot predict recurrence either. If clinically indicated, may pursue ECT therapy considering the above. At this moment the patient has enough criteria for ECT. Probably will need to rev paz her CV and filed for Section 7 and 8 since the patient is not compliant with medication grossly psychotic. But after discussing the case with her healthcare proxy and the legal team, on November 05 we are doing the paperwork to affirmed healthcare proxy. Encourage compliance with medication. On November 13 we got the information of the healthcare proxy we are going to start Invega Sustenna and discontinue Risperdal p.o. Reason for continued inpatient stay Substantial Risk for: inability to function, rapid decompensation and med/psych decompensation Time Spent With Patient Time: Total time managing care of this patient today __20__ minutes.
[2023-11-15 20:00] VITALS: BP 127/79; PULSE 109; RESP 16; TEMP 36.3; O2SAT 100
[2023-11-16 08:00] VITALS: BP 133/71; PULSE 20; RESP 100; TEMP 37; O2SAT 99
--- NOTE | 2023-11-16 13:53 | P.PNPSI_ITS ---
Subjective Subjective Date of Service: 11/16/23 Reason For Visit: Bipolar disorder depressed with psychotic features Subjective Notes: Conditional Voluntary Interim History: The nursing staff reported the patient had been noncompliant with medications she has been psychotic with poor appetite paranoid on one-to-one for safety. On interview the patient was illogical, staring responding to internal stimuli. She already has received her 1st dose of Invega. Mental Status Exam Mental Status Exam Patient Appearance: Appropriate Patient Orientation: Person and Situation Level of Consciousness: Awake and Appropriate Patient Behavior: Guarded and Passive Mood Description: Withdrawn Affect Description: Labile Patient Cognition Impaired: Yes Ability to Follow Directions: Poor Speech Pattern: Clear Hallucinations: Auditory Delusions: Paranoid Ideation and Ideas of Reference Thought Process: Incoherent and Illogical Thought Content: positive for Perseveration, positive for Loose Associations and positive for Thought Blocking Judgement: Poor Diagnostics Vital Signs (24Hr): Vital Signs - 24 hr 11/15/23 20:00 11/16/23 08:00 Temperature 97.3 F 98.6 F Pulse Rate 109 H 20 L Respiratory Rate 16 100 H Blood Pressure 127/79 133/71 Pulse Oximetry 100 99 Oxygen Delivery Method Room Air Room Air BMI result Body Mass Index 20.9 Labs 11/11/23 15:25 11/11/23 15:25 Medications Medications Current Medications Acetaminophen (Acetaminophen 325 Mg Tablet) 650 mg PO Q6H PRN PRN Reason: Headache/Pain Mild Scale (1-3) Acetaminophen (Acetaminophen 325 Mg Tablet) 650 mg PO Q6H PRN PRN Reason: Fever Or Pain Al Hydroxide/Mg Hydroxide (Magnesium Hydrox/Alum Hydrox 30 Ml Oral.Susp) 30 ml PO Q6H PRN PRN Reason: Heartburn/Nausea Cyclobenzaprine HCl (Cyclobenzaprine Hcl 10 Mg Tablet) 10 mg PO TID PRN PRN Reason: muscle spasm Docusate Sodium (Docusate Sodium 100 Mg Capsule) 100 mg PO BID [facility] Last Admin: 11/16/23 08:34 Dose: Not Given Gabapentin (Gabapentin 300 Mg Capsule) 600 mg PO BEDTIME [facility] Last Admin: 11/15/23 21:41 Dose: Not Given Hydroxyzine HCl (Hydroxyzine Hcl 25 Mg Tablet) 25 mg PO Q6H PRN PRN Reason: Anxiety Last Admin: 11/15/23 05:57 Dose: 25 mg Ibuprofen (Ibuprofen 400 Mg Tablet) 400 mg PO TID [facility] Last Admin: 11/16/23 08:34 Dose: Not Given Loratadine (Loratadine 10 Mg Tablet) 10 mg PO DAILY PRN PRN Reason: Allergy Symptoms Magnesium Hydroxide (Milk Of Magnesia 30 Ml Oral.Susp) 30 ml PO DAILY PRN PRN Reason: Constipation Omeprazole (Omeprazole 20 Mg Capsule.Dr) 20 mg PO BID@0630,1630 [facility] Last Admin: 11/16/23 05:04 Dose: Not Given Thiamine HCl (Thiamine Hcl 100 Mg Tablet) 100 mg PO BID [facility] Last Admin: 11/16/23 08:35 Dose: Not Given Trazodone HCl (Trazodone Hcl 50 Mg Tablet) 50 mg PO BEDTIME MRX1 PRN PRN Reason: Insomnia Allergies Allergies Allergy/AdvReac Type Severity Reaction Status Date / Time bee pollen Allergy Severe Anaphylaxis Verified 01/25/22 15:16 levofloxacin [From Levaquin] Allergy Severe Itching Verified 01/25/22 15:16 enoxaparin [From Lovenox] Allergy Intermediate Rash Verified 01/25/22 15:16 Penicillins Allergy Unknown Unknown Verified 01/25/22 15:16 Seasonal Allergies Allergy Runny Nose Verified 01/25/22 15:16 venlafaxine [From Effexor] Allergy Constipatio Verified 01/25/22 15:16 n Assessment & Plan Assessment & Plan (1) Bipolar 1 disorder, depressed, severe: Status: Acute Code(s): F31.4 - Bipolar disorder, current episode depressed, severe, without psychotic features Plan Cardiac studies reviewed. Prior echocardiogram with LVEF 55-60% with no wall motion abnormalities and otherwise unremarkable. Myocardial perfusion imaging study shows a small area of mild intensity apical ischemia. Cardiac catheterization 2021 shows normal coronary arteries. Overall, no cardiac contraindications to proceed with ECT therapy. No clear explanation as to why she had a small troponin leak in the past after ECT. Possible coronary vasospasm from ECT? Cannot predict recurrence either. If clinically indicated, may pursue ECT therapy considering the above. At this moment the patient has enough criteria for ECT. Probably will need to rev paz her CV and filed for Section 7 and 8 since the patient is not compliant with medication grossly psychotic. But after discussing the case with her healthcare proxy and the legal team, on November 05 we are doing the paperwork to affirmed healthcare proxy. Encourage compliance with medication. On November 13 we got the information of the healthcare proxy we are going to start Invega Sustenna and discontinue Risperdal p.o. Reason for continued inpatient stay Substantial Risk for: inability to function, rapid decompensation and med/psych decompensation Time Spent With Patient Time: Total time managing care of this patient today __20__ minutes.
[2023-11-16 14:04] VITALS: BMI 20.9
--- NOTE | 2023-11-16 14:16 | MHC.CLN ---
F/U DIET=REGULAR. CONTINUE TO OFFER ENSURE BID (700 KCALS, 40 G PROTEIN). PATIENT WITH USUALLY POOR PO X >5 DAYS. WEIGHT LOSS X 2 WEEKS OF 6#, 4.7%. APPEARS THIN BUT NOT ASSESSED MALNOURISHED. AT RISK OF DEHYDRATION AND MALNUTRITION DUE TO USUALLY POOR INTAKE. MAY BENEFIT FROM ALTERNATE HYDRATION/NUTRITION. MED CHANGE NOTED 11/13. STARTING INVEGA SUSTENNA. CONITNUE TO FOLLOW FOR INTAKE. SEE CLINICAL NUTRITION ASSESSMENT 11/16/23.
[2023-11-16 20:00] VITALS: BP 181/75; PULSE 86; RESP 18; TEMP 36.1; O2SAT 97
--- NOTE | 2023-11-17 06:41 | PC.NURSE ---
Patient on bedrest all night, 1:[address] Briefly out in milieu this morning, refused scheduled omeprazole, drank one ensure and went back to bed.
[2023-11-17 09:23] VITALS: BP 99/58; PULSE 79; RESP 16; TEMP 36.8; O2SAT 96
--- NOTE | 2023-11-17 19:00 | P.PNPSI_ITS ---
Subjective Subjective Date of Service: 11/17/23 Reason For Visit: Bipolar disorder depressed with psychotic features Interim History: Met with patient; discussed with team; reviewed chart Patient disorganized speech and behavior. Patient unable/unwilling to engage with resume writer. Staff reports not eating; did drink about 480 cc of fluids; not taking medications Mental Status Exam Mental Status Exam Patient Appearance: Appropriate Patient Orientation: Person Level of Consciousness: Awake and Alert Patient Behavior: Guarded, Resistive to Care, Uncooperative and Poor Eye Contact Mood Description: Constricted and Labile Affect Description: Labile Patient Cognition Impaired: Yes Ability to Follow Directions: Poor Speech Pattern: Clear Hallucinations: Auditory Delusions: Paranoid Ideation and Ideas of Reference Thought Process: Incoherent and Illogical Thought Content: positive for Perseveration, positive for Loose Associations and positive for Thought Blocking Judgement: Poor Judgement and Insight: Impaired Diagnostics Vital Signs (24Hr): Vital Signs - 24 hr 11/16/23 20:00 11/17/23 09:23 Temperature 97 F 98.3 F Pulse Rate 86 79 Respiratory Rate 18 16 Blood Pressure 181/75 H 99/58 L Pulse Oximetry 97 96 Oxygen Delivery Method Room Air Room Air BMI result Body Mass Index 20.9 Labs 11/11/23 15:25 11/17/23 19:20 Medications Medications Current Medications Acetaminophen (Acetaminophen 325 Mg Tablet) 650 mg PO Q6H PRN PRN Reason: Headache/Pain Mild Scale (1-3) Acetaminophen (Acetaminophen 325 Mg Tablet) 650 mg PO Q6H PRN PRN Reason: Fever Or Pain Al Hydroxide/Mg Hydroxide (Magnesium Hydrox/Alum Hydrox 30 Ml Oral.Susp) 30 ml PO Q6H PRN PRN Reason: Heartburn/Nausea Cyclobenzaprine HCl (Cyclobenzaprine Hcl 10 Mg Tablet) 10 mg PO TID PRN PRN Reason: muscle spasm Docusate Sodium (Docusate Sodium 100 Mg Capsule) 100 mg PO BID [facility] Last Admin: 11/17/23 10:16 Dose: Not Given Gabapentin (Gabapentin 300 Mg Capsule) 600 mg PO BEDTIME [facility] Last Admin: 11/16/23 22:59 Dose: Not Given Hydroxyzine HCl (Hydroxyzine Hcl 25 Mg Tablet) 25 mg PO Q6H PRN PRN Reason: Anxiety Last Admin: 11/15/23 05:57 Dose: 25 mg Ibuprofen (Ibuprofen 400 Mg Tablet) 400 mg PO TID [facility] Last Admin: 11/17/23 14:59 Dose: Not Given Loratadine (Loratadine 10 Mg Tablet) 10 mg PO DAILY PRN PRN Reason: Allergy Symptoms Magnesium Hydroxide (Milk Of Magnesia 30 Ml Oral.Susp) 30 ml PO DAILY PRN PRN Reason: Constipation Omeprazole (Omeprazole 20 Mg Capsule.Dr) 20 mg PO BID@0630,1630 [facility] Last Admin: 11/17/23 15:11 Dose: Not Given Thiamine HCl (Thiamine Hcl 100 Mg Tablet) 100 mg PO BID [facility] Last Admin: 11/17/23 10:16 Dose: Not Given Trazodone HCl (Trazodone Hcl 50 Mg Tablet) 50 mg PO BEDTIME MRX1 PRN PRN Reason: Insomnia Allergies Allergies Allergy/AdvReac Type Severity Reaction Status Date / Time bee pollen Allergy Severe Anaphylaxis Verified 01/25/22 15:16 levofloxacin [From Levaquin] Allergy Severe Itching Verified 01/25/22 15:16 enoxaparin [From Lovenox] Allergy Intermediate Rash Verified 01/25/22 15:16 Penicillins Allergy Unknown Unknown Verified 01/25/22 15:16 Seasonal Allergies Allergy Runny Nose Verified 01/25/22 15:16 venlafaxine [From Effexor] Allergy Constipatio Verified 01/25/22 15:16 n Assessment & Plan Assessment & Plan (1) Bipolar 1 disorder, depressed, severe: Status: Acute Code(s): F31.4 - Bipolar disorder, current episode depressed, severe, without psychotic features Plan Cardiac studies reviewed. Prior echocardiogram with LVEF 55-60% with no wall motion abnormalities and otherwise unremarkable. Myocardial perfusion imaging study shows a small area of mild intensity apical ischemia. Cardiac catheterization 2021 shows normal coronary arteries. Overall, no cardiac contraindications to proceed with ECT therapy. No clear explanation as to why she had a small troponin leak in the past after ECT. Possible coronary vasospasm from ECT? Cannot predict recurrence either. If clinically indicated, may pursue ECT therapy considering the above. At this moment the patient has enough criteria for ECT. Probably will need to rev paz her CV and filed for Section 7 and 8 since the patient is not compliant with medication grossly psychotic. But after discussing the case with her healthcare proxy and the legal team, on November 05 we are doing the paperwork to affirmed healthcare proxy. Encourage compliance with medication. On November 13 we got the information of the healthcare proxy we are going to start Invega Sustenna and discontinue Risperdal p.o. 11/16 Patient disorganized speech and behavior. Patient unable/unwilling to engage with resume writer. Staff reports not eating; did drink about 480 cc of fluids; not taking medications -since has had very poor p.o. intake, will get some baseline labs if patient willing Patient educated on: diagnosis Informed Consent: does not understand Reason for continued inpatient stay Substantial Risk for: inability to function Time Spent With Patient Time: Total time managing care of this patient today ____ minutes.
[2023-11-17 19:44] LABS: Alanine Aminotransferase 24 U/L (0-31); Albumin Level 4.2 g/dL (3.5-5.0); Alkaline Phosphatase 104 U/L (39-117); Anion Gap 14 (12-20); Aspartate Amino Transferase 22 U/L (5-31); Bilirubin Total 0.3 mg/dL (0.0-1.0); Blood Urea Nitrogen 22 mg/dL (9-16); Calcium 9.6 mg/dL (8.4-10.2); Carbon Dioxide 22 mmol/L (22-29); Chloride 103 mmol/L (96-108); Creatinine Clr Calc Pharmacy 61.1; Estimated Glomerular Filt Rate > 60; Glucose Random 166 mg/dL (60-115); Potassium 3.4 mmol/L (3.3-5.1); Sodium 136 mmol/L (135-145); Total Protein 7.1 g/dL (6.5-8.0)
[2023-11-17 20:00] VITALS: BP 142/89; PULSE 102; RESP 18; TEMP 36.4; O2SAT 98
[2023-11-18] MEDS: Omeprazole 20 MG CAPSULE.DR PO (06:18)
[2023-11-18 09:36] VITALS: BP 111/72; PULSE 78; RESP 16; TEMP 36.6; O2SAT 97
--- NOTE | 2023-11-18 16:10 | HO.PSYCHPN ---
Subjective Subjective Date of Service: 11/18/23 Reason For Visit: Bipolar disorder depressed with psychotic features Interim History: Briefly Met with patient; discussed with team Patient had just fallen asleep when content writer arrived and content writer decided it was in patient's best interest to remain sleeping as she remains too disorganized to engage and sleep is likely therapeutic; also she is on a one-to-one and staff able to provide information. Staff reports that patient did a little better today regarding that she drank about 700 cc of fluid and ate half a sandwich. She said to staff person that she wanted to and go to on [facility]. Reviewed labs which are WNL. Mental Status Exam Mental Status Exam Patient Appearance: Appropriate Patient Orientation: Person Level of Consciousness: Drowsy Patient Behavior: Guarded, Resistive to Care, Uncooperative and Poor Eye Contact Mood Description: Constricted and Labile Affect Description: Labile Patient Cognition Impaired: Yes Ability to Follow Directions: Poor Speech Pattern: Clear Hallucinations: Auditory Delusions: Paranoid Ideation and Ideas of Reference Thought Process: Incoherent and Illogical Thought Content: positive for Perseveration, positive for Loose Associations and positive for Thought Blocking Judgement: Poor Judgement and Insight: Impaired Diagnostics Vital Signs (24Hr): Vital Signs - 24 hr 11/17/23 20:00 11/18/23 09:36 Temperature 97.5 F 97.9 F Pulse Rate 102 H 78 Respiratory Rate 18 16 Blood Pressure 142/89 H 111/72 Pulse Oximetry 98 97 Oxygen Delivery Method Room Air Room Air BMI result Body Mass Index 20.9 Labs 11/11/23 15:25 11/17/23 19:20 Labs: Laboratory Results - last 48 hr 11/17/23 19:20 Sodium 136 Potassium 3.4 Chloride 103 Carbon Dioxide 22 Anion Gap 14 BUN 22 H Creatinine 0.84 Estim Creat Clear Calc 61.1 Estimated GFR > 60 Random Glucose 166 H Calcium 9.6 Total Bilirubin 0.3 AST 22 ALT 24 Alkaline Phosphatase 104 Total Protein 7.1 Albumin 4.2 Medications Medications Current Medications Acetaminophen (Acetaminophen 325 Mg Tablet) 650 mg PO Q6H PRN PRN Reason: Headache/Pain Mild Scale (1-3) Acetaminophen (Acetaminophen 325 Mg Tablet) 650 mg PO Q6H PRN PRN Reason: Fever Or Pain Al Hydroxide/Mg Hydroxide (Magnesium Hydrox/Alum Hydrox 30 Ml Oral.Susp) 30 ml PO Q6H PRN PRN Reason: Heartburn/Nausea Cyclobenzaprine HCl (Cyclobenzaprine Hcl 10 Mg Tablet) 10 mg PO TID PRN PRN Reason: muscle spasm Docusate Sodium (Docusate Sodium 100 Mg Capsule) 100 mg PO BID [facility] Last Admin: 11/18/23 09:51 Dose: Not Given Gabapentin (Gabapentin 300 Mg Capsule) 600 mg PO BEDTIME [facility] Last Admin: 11/17/23 20:31 Dose: Not Given Hydroxyzine HCl (Hydroxyzine Hcl 25 Mg Tablet) 25 mg PO Q6H PRN PRN Reason: Anxiety Last Admin: 11/15/23 05:57 Dose: 25 mg Ibuprofen (Ibuprofen 400 Mg Tablet) 400 mg PO TID [facility] Last Admin: 11/18/23 15:31 Dose: Not Given Loratadine (Loratadine 10 Mg Tablet) 10 mg PO DAILY PRN PRN Reason: Allergy Symptoms Magnesium Hydroxide (Milk Of Magnesia 30 Ml Oral.Susp) 30 ml PO DAILY PRN PRN Reason: Constipation Omeprazole (Omeprazole 20 Mg Capsule.Dr) 20 mg PO BID@0630,1630 [facility] Last Admin: 11/18/23 06:18 Dose: 20 mg Thiamine HCl (Thiamine Hcl 100 Mg Tablet) 100 mg PO BID [facility] Last Admin: 11/18/23 09:51 Dose: Not Given Trazodone HCl (Trazodone Hcl 50 Mg Tablet) 50 mg PO BEDTIME MRX1 PRN PRN Reason: Insomnia Allergies Allergies Allergy/AdvReac Type Severity Reaction Status Date / Time bee pollen Allergy Severe Anaphylaxis Verified 01/25/22 15:16 levofloxacin [From Levaquin] Allergy Severe Itching Verified 01/25/22 15:16 enoxaparin [From Lovenox] Allergy Intermediate Rash Verified 01/25/22 15:16 Penicillins Allergy Unknown Unknown Verified 01/25/22 15:16 Seasonal Allergies Allergy Runny Nose Verified 01/25/22 15:16 venlafaxine [From Effexor] Allergy Constipatio Verified 01/25/22 15:16 n Assessment & Plan Assessment & Plan (1) Bipolar 1 disorder, depressed, severe: Status: Acute Code(s): F31.4 - Bipolar disorder, current episode depressed, severe, without psychotic features Plan Cardiac studies reviewed. Prior echocardiogram with LVEF 55-60% with no wall motion abnormalities and otherwise unremarkable. Myocardial perfusion imaging study shows a small area of mild intensity apical ischemia. Cardiac catheterization 2021 shows normal coronary arteries. Overall, no cardiac contraindications to proceed with ECT therapy. No clear explanation as to why she had a small troponin leak in the past after ECT. Possible coronary vasospasm from ECT? Cannot predict recurrence either. If clinically indicated, may pursue ECT therapy considering the above. At this moment the patient has enough criteria for ECT. Probably will need to rev paz her CV and filed for Section 7 and 8 since the patient is not compliant with medication grossly psychotic. But after discussing the case with her healthcare proxy and the legal team, on November 05 we are doing the paperwork to affirmed healthcare proxy. Encourage compliance with medication. On November 13 we got the information of the healthcare proxy we are going to start Invega Sustenna and discontinue Risperdal p.o. 11/16 Patient disorganized speech and behavior. Patient unable/unwilling to engage with content writer. Staff reports not eating; did drink about 480 cc of fluids; not taking medications -since has had very poor p.o. intake, will get some baseline labs if patient willing 11/17 Patient had just fallen asleep when content writer arrived and content writer decided it was in patient's best interest to remain sleeping as she remains too disorganized to engage and sleep is likely therapeutic; also she is on a one-to-one and staff able to provide information. Staff reports that patient did a little better today regarding that she drank about 700 cc of fluid and ate half a sandwich. She said to staff person that she wanted to and go to [facility]. Reviewed labs: Mildly elevated white count Lytes WNL BUN/creatinine grossly WNL LFTs WNL Reason for continued inpatient stay Substantial Risk for: inability to function Time Spent With Patient Time: Total time managing care of this patient today ____ minutes.
[2023-11-18 20:00] VITALS: BP 144/70; PULSE 88; TEMP 36.3; O2SAT 88
--- NOTE | 2023-11-19 06:16 | PC.NURSE ---
Patient slept intermittently with total 31/2 hours, patient is still preoccupied religiously, she kneel down few time on the floor for prayers, requested to see , refused her medication, VSS, 1:1 for safety check due to paranoia, appetite poor, will continue to monitor
[2023-11-19 08:20] VITALS: BP 115/74; PULSE 110; RESP 18; TEMP 36.2; O2SAT 97
--- NOTE | 2023-11-19 12:26 | P.PNPSI_ITS ---
Subjective Subjective Date of Service: 11/19/23 Reason For Visit: Bipolar disorder depressed with psychotic features Subjective Notes: Conditional Voluntary (By healthcare proxy) Healthcare Proxy: Yes Interim History: The nursing staff reported the patient has refused all her medications she ate 50% of a sandwich. She had been grossly psychotic religiously preoccupied labile at times. She slept only 3 hours. On interview the patient was grossly psychotic. We are going to add a 2nd dose of Invega Sustenna tomorrow. Mental Status Exam Mental Status Exam Patient Appearance: Appropriate Patient Orientation: Person and Situation Level of Consciousness: Awake and Appropriate Patient Behavior: Guarded and Passive Mood Description: Withdrawn Affect Description: Constricted Patient Cognition Impaired: Yes Ability to Follow Directions: Fair Speech Pattern: Clear Hallucinations: Auditory Delusions: Paranoid Ideation and Ideas of Reference Thought Process: Incoherent and Distracted Thought Content: positive for Loose Associations, positive for Thought Blocking and positive for Incoherent Judgement: Poor Diagnostics Vital Signs (24Hr): Vital Signs - 24 hr 11/18/23 20:00 11/19/23 08:20 Temperature 97.3 F 97.2 F Pulse Rate 88 110 H Respiratory Rate 18 Blood Pressure 144/70 H 115/74 Pulse Oximetry 88 L 97 Oxygen Delivery Method Room Air Room Air BMI result Body Mass Index 20.9 Labs 11/11/23 15:25 11/17/23 19:20 Labs: Laboratory Results - last 48 hr 11/17/23 19:20 Sodium 136 Potassium 3.4 Chloride 103 Carbon Dioxide 22 Anion Gap 14 BUN 22 H Creatinine 0.84 Estim Creat Clear Calc 61.1 Estimated GFR > 60 Random Glucose 166 H Calcium 9.6 Total Bilirubin 0.3 AST 22 ALT 24 Alkaline Phosphatase 104 Total Protein 7.1 Albumin 4.2 Medications Medications Current Medications Acetaminophen (Acetaminophen 325 Mg Tablet) 650 mg PO Q6H PRN PRN Reason: Headache/Pain Mild Scale (1-3) Acetaminophen (Acetaminophen 325 Mg Tablet) 650 mg PO Q6H PRN PRN Reason: Fever Or Pain Al Hydroxide/Mg Hydroxide (Magnesium Hydrox/Alum Hydrox 30 Ml Oral.Susp) 30 ml PO Q6H PRN PRN Reason: Heartburn/Nausea Cyclobenzaprine HCl (Cyclobenzaprine Hcl 10 Mg Tablet) 10 mg PO TID PRN PRN Reason: muscle spasm Docusate Sodium (Docusate Sodium 100 Mg Capsule) 100 mg PO BID [facility] Last Admin: 11/19/23 09:13 Dose: Not Given Gabapentin (Gabapentin 300 Mg Capsule) 600 mg PO BEDTIME [facility] Last Admin: 11/18/23 20:49 Dose: Not Given Hydroxyzine HCl (Hydroxyzine Hcl 25 Mg Tablet) 25 mg PO Q6H PRN PRN Reason: Anxiety Last Admin: 11/15/23 05:57 Dose: 25 mg Ibuprofen (Ibuprofen 400 Mg Tablet) 400 mg PO TID [facility] Last Admin: 11/19/23 09:13 Dose: Not Given Loratadine (Loratadine 10 Mg Tablet) 10 mg PO DAILY PRN PRN Reason: Allergy Symptoms Magnesium Hydroxide (Milk Of Magnesia 30 Ml Oral.Susp) 30 ml PO DAILY PRN PRN Reason: Constipation Omeprazole (Omeprazole 20 Mg Capsule.Dr) 20 mg PO BID@0630,1630 [facility] Last Admin: 11/19/23 05:40 Dose: Not Given Thiamine HCl (Thiamine Hcl 100 Mg Tablet) 100 mg PO BID [facility] Last Admin: 11/19/23 09:14 Dose: Not Given Trazodone HCl (Trazodone Hcl 50 Mg Tablet) 50 mg PO BEDTIME MRX1 PRN PRN Reason: Insomnia Allergies Allergies Allergy/AdvReac Type Severity Reaction Status Date / Time bee pollen Allergy Severe Anaphylaxis Verified 01/25/22 15:16 levofloxacin [From Levaquin] Allergy Severe Itching Verified 01/25/22 15:16 enoxaparin [From Lovenox] Allergy Intermediate Rash Verified 01/25/22 15:16 Penicillins Allergy Unknown Unknown Verified 01/25/22 15:16 Seasonal Allergies Allergy Runny Nose Verified 01/25/22 15:16 venlafaxine [From Effexor] Allergy Constipatio Verified 01/25/22 15:16 n Assessment & Plan Assessment & Plan (1) Bipolar 1 disorder, depressed, severe: Status: Acute Code(s): F31.4 - Bipolar disorder, current episode depressed, severe, without psychotic features Plan Cardiac studies reviewed. Prior echocardiogram with LVEF 55-60% with no wall motion abnormalities and otherwise unremarkable. Myocardial perfusion imaging study shows a small area of mild intensity apical ischemia. Cardiac catheterization 2021 shows normal coronary arteries. Overall, no cardiac contraindications to proceed with ECT therapy. No clear explanation as to why she had a small troponin leak in the past after ECT. Possible coronary vasospasm from ECT? Cannot predict recurrence either. If clinically indicated, may pursue ECT therapy considering the above. At this moment the patient has enough criteria for ECT. Probably will need to rev paz her CV and filed for Section 7 and 8 since the patient is not compliant with medication grossly psychotic. But after discussing the case with her healthcare proxy and the legal team, on November 05 we are doing the paperwork to affirmed healthcare proxy. Encourage compliance with medication. On November 13 we got the information of the healthcare proxy we are going to start Invega Sustenna and discontinue Risperdal p.o. 11/16 Patient disorganized speech and behavior. Patient unable/unwilling to engage with consumer loan underwriter. Staff reports not eating; did drink about 480 cc of fluids; not taking medications -since has had very poor p.o. intake, will get some baseline labs if patient willing 11/17 Patient had just fallen asleep when consumer loan underwriter arrived and consumer loan underwriter decided it was in patient's best interest to remain sleeping as she remains too disorganized to engage and sleep is likely therapeutic; also she is on a one-to-one and staff able to provide information. Staff reports that patient did a little better today regarding that she drank about 700 cc of fluid and ate half a sandwich. She said to staff person that [facility] Reviewed labs: Mildly elevated white count Lytes WNL BUN/creatinine grossly WNL LFTs WNL Plan 1. Continue with Invega Sustenna as per plan. 2. We will consider ECT if she fails to Invega. Reason for continued inpatient stay Substantial Risk for: inability to function, rapid decompensation and med/psych decompensation Time Spent With Patient Time: Total time managing care of this patient today __20__ minutes.
--- NOTE | 2023-11-19 12:57 | MHC.CLN ---
F/U DIET=REGULAR. CONTINUE TO PROVIDE ENSURE BID (700 KCALS, 40 G PROTEIN). STAFF MAY PROVIDE AND ENCOURAGE ADDITIONAL SNACKS AND SUPPLEMENTS FROM UNIT KITCHEN. PATIENT WITH USUALLY POOR PO X >5 DAYS. AT RISK OF DEHYDRATION AND MALNUTRITION DUE TO USUALLY POOR INTAKE. MAY BENEFIT FROM ALTERNATE HYDRATION/NUTRITION. MED CHANGE NOTED 11/13. STARTING INVEGA SUSTENNA. CONSIDERING ECT NEEDED. CONTINUE TO FOLLOW FOR INTAKE.
--- NOTE | 2023-11-20 12:51 | P.PNPSI_ITS ---
Subjective Subjective Date of Service: 11/20/23 Reason For Visit: Bipolar disorder depressed with psychotic features Subjective Notes: Conditional Voluntary Interim History: The nursing staff reported the patient had been florid psychotic, responding to internal stimuli. She had been seen chanting in the common areas staring in the void. She slept 5 hours. On interview the patient remains internally preoccupied unable to answer questions with full answers. Today we are going to give her 2nd shot of Invega Sustenna. Mental Status Exam Mental Status Exam Patient Appearance: Appropriate Patient Orientation: Person and Situation Level of Consciousness: Awake and Appropriate Patient Behavior: Guarded and Passive Mood Description: Withdrawn and Labile Affect Description: Blunted Patient Cognition Impaired: Yes Ability to Follow Directions: Fair Speech Pattern: Impoverished Hallucinations: Auditory Delusions: Paranoid Ideation and Ideas of Reference Thought Process: Incoherent and Illogical Thought Content: positive for Thought Blocking and positive for Disorganized Judgement: Poor Diagnostics Vital Signs (24Hr): BMI result Body Mass Index 20.9 Labs 11/11/23 15:25 11/17/23 19:20 Medications Medications Current Medications Acetaminophen (Acetaminophen 325 Mg Tablet) 650 mg PO Q6H PRN PRN Reason: Headache/Pain Mild Scale (1-3) Acetaminophen (Acetaminophen 325 Mg Tablet) 650 mg PO Q6H PRN PRN Reason: Fever Or Pain Al Hydroxide/Mg Hydroxide (Magnesium Hydrox/Alum Hydrox 30 Ml Oral.Susp) 30 ml PO Q6H PRN PRN Reason: Heartburn/Nausea Cyclobenzaprine HCl (Cyclobenzaprine Hcl 10 Mg Tablet) 10 mg PO TID PRN PRN Reason: muscle spasm Docusate Sodium (Docusate Sodium 100 Mg Capsule) 100 mg PO BID [facility] Last Admin: 11/20/23 09:21 Dose: Not Given Gabapentin (Gabapentin 300 Mg Capsule) 600 mg PO BEDTIME [facility] Last Admin: 11/19/23 21:37 Dose: Not Given Hydroxyzine HCl (Hydroxyzine Hcl 25 Mg Tablet) 25 mg PO Q6H PRN PRN Reason: Anxiety Last Admin: 11/15/23 05:57 Dose: 25 mg Ibuprofen (Ibuprofen 400 Mg Tablet) 400 mg PO TID [facility] Last Admin: 11/20/23 09:22 Dose: Not Given Loratadine (Loratadine 10 Mg Tablet) 10 mg PO DAILY PRN PRN Reason: Allergy Symptoms Magnesium Hydroxide (Milk Of Magnesia 30 Ml Oral.Susp) 30 ml PO DAILY PRN PRN Reason: Constipation Omeprazole (Omeprazole 20 Mg Capsule.Dr) 20 mg PO BID@0630,1630 [facility] Last Admin: 11/20/23 07:35 Dose: Not Given Paliperidone Palmitate (Paliperidone Palmitate 234 Mg/1.5 Ml Syringe) 234 mg IM Q30D [facility] Thiamine HCl (Thiamine Hcl 100 Mg Tablet) 100 mg PO BID [facility] Last Admin: 11/20/23 09:22 Dose: Not Given Trazodone HCl (Trazodone Hcl 50 Mg Tablet) 50 mg PO BEDTIME MRX1 PRN PRN Reason: Insomnia Allergies Allergies Allergy/AdvReac Type Severity Reaction Status Date / Time bee pollen Allergy Severe Anaphylaxis Verified 01/25/22 15:16 levofloxacin [From Levaquin] Allergy Severe Itching Verified 01/25/22 15:16 enoxaparin [From Lovenox] Allergy Intermediate Rash Verified 01/25/22 15:16 Penicillins Allergy Unknown Unknown Verified 01/25/22 15:16 Seasonal Allergies Allergy Runny Nose Verified 01/25/22 15:16 venlafaxine [From Effexor] Allergy Constipatio Verified 01/25/22 15:16 n Assessment & Plan Assessment & Plan (1) Bipolar 1 disorder, depressed, severe: Status: Acute Code(s): F31.4 - Bipolar disorder, current episode depressed, severe, without psychotic features Plan Cardiac studies reviewed. Prior echocardiogram with LVEF 55-60% with no wall motion abnormalities and otherwise unremarkable. Myocardial perfusion imaging study shows a small area of mild intensity apical ischemia. Cardiac catheterization 2021 shows normal coronary arteries. Overall, no cardiac contraindications to proceed with ECT therapy. No clear explanation as to why she had a small troponin leak in the past after ECT. Possible coronary vasospasm from ECT? Cannot predict recurrence either. If clinically indicated, may pursue ECT therapy considering the above. At this moment the patient has enough criteria for ECT. Probably will need to rev paz her CV and filed for Section 7 and 8 since the patient is not compliant with medication grossly psychotic. But after discussing the case with her healthcare proxy and the legal team, on November 05 we are doing the paperwork to affirmed healthcare proxy. Encourage compliance with medication. On November 13 we got the information of the healthcare proxy we are going to start Invega Sustenna and discontinue Risperdal p.o. 11/16 Patient disorganized speech and behavior. Patient unable/unwilling to engage with comic book writer. Staff reports not eating; did drink about 480 cc of fluids; not taking medications -since has had very poor p.o. intake, will get some baseline labs if patient willing 11/17 Patient had just fallen asleep when comic book writer arrived and comic book writer decided it was in patient's best interest to remain sleeping as she remains too disorganized to engage and sleep is likely therapeutic; also she is on a one-to-one and staff able to provide information. Staff reports that patient did a little better today regarding that she drank about 700 cc of fluid and ate half a sandwich. She said to staff person that she wanted to and go to [facility]. Reviewed labs: Mildly elevated white count Lytes WNL BUN/creatinine grossly WNL LFTs WNL Plan 1. Continue with Invega Sustenna as per plan. 2. We will consider ECT if she fails to Invega. Invega Sustenna 234 mg IM 2nd shot on November 19. Reason for continued inpatient stay Substantial Risk for: inability to function, rapid decompensation and med/psych decompensation Time Spent With Patient Time: Total time managing care of this patient today _20___ minutes.
[2023-11-20 20:00] VITALS: BP 110/61; PULSE 97; TEMP 36.2; O2SAT 97
--- NOTE | 2023-11-20 22:13 | PC.NURSE ---
Per [facility] Invega Britni is due for today but order reads every 30 day and patient got her Invega shot on 11/14/23. For order clarification called pharmacy and after they reach out to abalone diver provider pharmacy notified this mortgage or loan underwriter that per abalone diver provider the matter needs to be discussed with attending provider in the morning. Invega order is currently placed on pending order in the [facility].
[2023-11-21 08:00] VITALS: BP 102/60; PULSE 104; RESP 18; TEMP 36.2; O2SAT 97
--- NOTE | 2023-11-21 10:48 | PC.NURSE ---
Paliperidone Palmitate IM not available at this time, pharmacy notified. Awaiting delivery. Provider notified.
--- NOTE | 2023-11-21 11:44 | MHC.CLN ---
F/U DIET=REGULAR. CONTINUE TO PROVIDE ENSURE BID (700 KCALS, 40 G PROTEIN). STAFF MAY PROVIDE AND ENCOURAGE ADDITIONAL SNACKS AND SUPPLEMENTS FROM UNIT KITCHEN. PATIENT WITH USUALLY POOR PO AND IS AT RISK OF DEHYDRATION AND MALNUTRITION. MAY BENEFIT FROM ALTERNATE HYDRATION/NUTRITION. RECEIVED INVEGA SUSTENNA. CONTINUE TO FOLLOW FOR INTAKE.
[2023-11-21] MEDS: Paliperidone Palmitate 234 MG/1.5 ML SYRINGE IM (12:10)
--- NOTE | 2023-11-21 12:19 | PC.NURSE ---
Paliperidone Palmitate IM given to left deltoid without issues. Pt was cooperative.
--- NOTE | 2023-11-21 15:35 | HO.PSYCHPN ---
Subjective Subjective Date of Service: 11/21/23 Reason For Visit: Bipolar disorder depressed with psychotic features Subjective Notes: Conditional Voluntary (By affirmed healthcare proxy) Healthcare Proxy: Yes Interim History: The patient remains grossly psychotic, disorganized, one-to-one due to unable to have a logical conversation or organized behavior. Today we had her 2nd dose of Invega Sustenna 234. On interview the patient is grossly psychotic. Mental Status Exam Mental Status Exam Patient Appearance: Unkempt Patient Orientation: Person and Situation Level of Consciousness: Awake Patient Behavior: Guarded and Passive Mood Description: Withdrawn Affect Description: Labile Patient Cognition Impaired: Yes Ability to Follow Directions: Poor Speech Pattern: Impoverished Hallucinations: Auditory Delusions: Paranoid Ideation Thought Process: Incoherent and Illogical Thought Content: positive for [place] and positive for Circumstantial Judgement: Poor Diagnostics Vital Signs (24Hr): Vital Signs - 24 hr 11/20/23 20:00 11/21/23 08:00 Temperature 97.1 F 97.1 F Pulse Rate 97 104 H Respiratory Rate 18 Blood Pressure 110/61 102/60 Pulse Oximetry 97 97 Oxygen Delivery Method Room Air Room Air BMI result Body Mass Index 20.9 Labs 11/11/23 15:25 11/17/23 19:20 Medications Medications Current Medications Acetaminophen (Acetaminophen 325 Mg Tablet) 650 mg PO Q6H PRN PRN Reason: Headache/Pain Mild Scale (1-3) Acetaminophen (Acetaminophen 325 Mg Tablet) 650 mg PO Q6H PRN PRN Reason: Fever Or Pain Al Hydroxide/Mg Hydroxide (Magnesium Hydrox/Alum Hydrox 30 Ml Oral.Susp) 30 ml PO Q6H PRN PRN Reason: Heartburn/Nausea Cyclobenzaprine HCl (Cyclobenzaprine Hcl 10 Mg Tablet) 10 mg PO TID PRN PRN Reason: muscle spasm Docusate Sodium (Docusate Sodium 100 Mg Capsule) 100 mg PO BID [facility] Last Admin: 11/21/23 09:39 Dose: Not Given Gabapentin (Gabapentin 300 Mg Capsule) 600 mg PO BEDTIME [facility] Last Admin: 11/20/23 21:04 Dose: Not Given Hydroxyzine HCl (Hydroxyzine Hcl 25 Mg Tablet) 25 mg PO Q6H PRN PRN Reason: Anxiety Last Admin: 11/15/23 05:57 Dose: 25 mg Ibuprofen (Ibuprofen 400 Mg Tablet) 400 mg PO TID [facility] Last Admin: 11/21/23 09:39 Dose: Not Given Loratadine (Loratadine 10 Mg Tablet) 10 mg PO DAILY PRN PRN Reason: Allergy Symptoms Magnesium Hydroxide (Milk Of Magnesia 30 Ml Oral.Susp) 30 ml PO DAILY PRN PRN Reason: Constipation Omeprazole (Omeprazole 20 Mg Capsule.Dr) 20 mg PO BID@0630,1630 [facility] Last Admin: 11/21/23 07:20 Dose: Not Given Thiamine HCl (Thiamine Hcl 100 Mg Tablet) 100 mg PO BID [facility] Last Admin: 11/21/23 09:40 Dose: Not Given Trazodone HCl (Trazodone Hcl 50 Mg Tablet) 50 mg PO BEDTIME MRX1 PRN PRN Reason: Insomnia Allergies Allergies Allergy/AdvReac Type Severity Reaction Status Date / Time bee pollen Allergy Severe Anaphylaxis Verified 01/25/22 15:16 levofloxacin [From Levaquin] Allergy Severe Itching Verified 01/25/22 15:16 enoxaparin [From Lovenox] Allergy Intermediate Rash Verified 01/25/22 15:16 Penicillins Allergy Unknown Unknown Verified 01/25/22 15:16 Seasonal Allergies Allergy Runny Nose Verified 01/25/22 15:16 venlafaxine [From Effexor] Allergy Constipatio Verified 01/25/22 15:16 n Assessment & Plan Assessment & Plan (1) Bipolar 1 disorder, depressed, severe: Status: Acute Code(s): F31.4 - Bipolar disorder, current episode depressed, severe, without psychotic features Plan Cardiac studies reviewed. Prior echocardiogram with LVEF 55-60% with no wall motion abnormalities and otherwise unremarkable. Myocardial perfusion imaging study shows a small area of mild intensity apical ischemia. Cardiac catheterization 2021 shows normal coronary arteries. Overall, no cardiac contraindications to proceed with ECT therapy. No clear explanation as to why she had a small troponin leak in the past after ECT. Possible coronary vasospasm from ECT? Cannot predict recurrence either. If clinically indicated, may pursue ECT therapy considering the above. At this moment the patient has enough criteria for ECT. Probably will need to rev paz her CV and filed for Section 7 and 8 since the patient is not compliant with medication grossly psychotic. But after discussing the case with her healthcare proxy and the legal team, on November 05 we are doing the paperwork to affirmed healthcare proxy. Encourage compliance with medication. On November 13 we got the information of the healthcare proxy we are going to start Invega Sustenna and discontinue Risperdal p.o. 11/16 Patient disorganized speech and behavior. Patient unable/unwilling to engage with va underwriter. Staff reports not eating; did drink about 480 cc of fluids; not taking medications -since has had very poor p.o. intake, will get some baseline labs if patient willing 11/17 Patient had just fallen asleep when va underwriter arrived and va underwriter decided it was in patient's best interest to remain sleeping as she remains too disorganized to engage and sleep is likely therapeutic; also she is on a one-to-one and staff able to provide information. Staff reports that patient did a little better today regarding that she drank about 700 cc of fluid and ate half a sandwich. She said to staff person that she wanted to and go to [facility]. Reviewed labs: Mildly elevated white count Lytes WNL BUN/creatinine grossly WNL LFTs WNL Plan 1. Continue with Invega Sustenna as per plan. 2. We will consider ECT if she fails to Invega. Invega Sustenna 234 mg IM 2nd shot on November 20. Reason for continued inpatient stay Substantial Risk for: inability to function, rapid decompensation and med/psych decompensation Time Spent With Patient Time: Total time managing care of this patient today __20__ minutes.
[2023-11-21 20:00] VITALS: BP 146/93; PULSE 84; TEMP 36.6; O2SAT 96
[2023-11-22] MEDS: Docusate Sodium 100 MG CAPSULE PO ×2 (08:15→20:52)
[2023-11-22] MEDS: Thiamine HCL 100 MG TABLET PO (08:15)
[2023-11-22 08:19] VITALS: BP 146/71; PULSE 94; RESP 20; TEMP 36.5
[2023-11-22 09:39] VITALS: BMI 20.7
--- NOTE | 2023-11-22 13:55 | P.PNPSI_ITS ---
Subjective Subjective Date of Service: 11/22/23 Reason For Visit: Bipolar disorder depressed with psychotic features Subjective Notes: Conditional Voluntary (By healthcare proxy.) Interim History: The nursing staff reported the patient slept 8 hours, she was seen wandering the unit confused on one-to-one. The social security assessor reported that his sister is concerned about the lack of improvement, we are still monitoring her improvement now that she Risperdal 2nd shot of Invega. On interview the patient is confused, grossly disorganized still psychotic. She was lying on bed, resting. Mental Status Exam Mental Status Exam Patient Appearance: Appropriate Patient Orientation: Person Level of Consciousness: Awake Patient Behavior: Guarded and Passive Mood Description: Withdrawn Affect Description: Labile Patient Cognition Impaired: Yes Ability to Follow Directions: Poor Speech Pattern: Impoverished Hallucinations: Auditory Delusions: Paranoid Ideation and Ideas of Reference Thought Process: Disoriented, Incoherent and Distracted Thought Content: positive for [place] of Content Judgement: Poor Diagnostics Vital Signs (24Hr): Vital Signs - 24 hr 11/21/23 20:00 11/22/23 08:19 Temperature 97.9 F 97.7 F Pulse Rate 84 94 Respiratory Rate 20 Blood Pressure 146/93 H 146/71 H Pulse Oximetry 96 Oxygen Delivery Method Room Air BMI result Body Mass Index 20.7 Labs 11/11/23 15:25 11/17/23 19:20 Medications Medications Current Medications Acetaminophen (Acetaminophen 325 Mg Tablet) 650 mg PO Q6H PRN PRN Reason: Headache/Pain Mild Scale (1-3) Acetaminophen (Acetaminophen 325 Mg Tablet) 650 mg PO Q6H PRN PRN Reason: Fever Or Pain Al Hydroxide/Mg Hydroxide (Magnesium Hydrox/Alum Hydrox 30 Ml Oral.Susp) 30 ml PO Q6H PRN PRN Reason: Heartburn/Nausea Cyclobenzaprine HCl (Cyclobenzaprine Hcl 10 Mg Tablet) 10 mg PO TID PRN PRN Reason: muscle spasm Docusate Sodium (Docusate Sodium 100 Mg Capsule) 100 mg PO BID [facility] Last Admin: 11/22/23 08:15 Dose: 100 mg Gabapentin (Gabapentin 300 Mg Capsule) 600 mg PO BEDTIME [facility] Last Admin: 11/21/23 21:32 Dose: Not Given Hydroxyzine HCl (Hydroxyzine Hcl 25 Mg Tablet) 25 mg PO Q6H PRN PRN Reason: Anxiety Last Admin: 11/15/23 05:57 Dose: 25 mg Ibuprofen (Ibuprofen 400 Mg Tablet) 400 mg PO TID [facility] Last Admin: 11/22/23 08:18 Dose: Not Given Loratadine (Loratadine 10 Mg Tablet) 10 mg PO DAILY PRN PRN Reason: Allergy Symptoms Magnesium Hydroxide (Milk Of Magnesia 30 Ml Oral.Susp) 30 ml PO DAILY PRN PRN Reason: Constipation Omeprazole (Omeprazole 20 Mg Capsule.Dr) 20 mg PO BID@0630,1630 [facility] Last Admin: 11/22/23 05:34 Dose: Not Given Thiamine HCl (Thiamine Hcl 100 Mg Tablet) 100 mg PO BID [facility] Last Admin: 11/22/23 08:15 Dose: 100 mg Trazodone HCl (Trazodone Hcl 50 Mg Tablet) 50 mg PO BEDTIME MRX1 PRN PRN Reason: Insomnia Allergies Allergies Allergy/AdvReac Type Severity Reaction Status Date / Time bee pollen Allergy Severe Anaphylaxis Verified 01/25/22 15:16 levofloxacin [From Levaquin] Allergy Severe Itching Verified 01/25/22 15:16 enoxaparin [From Lovenox] Allergy Intermediate Rash Verified 01/25/22 15:16 Penicillins Allergy Unknown Unknown Verified 01/25/22 15:16 Seasonal Allergies Allergy Runny Nose Verified 01/25/22 15:16 venlafaxine [From Effexor] Allergy Constipatio Verified 01/25/22 15:16 n Assessment & Plan Assessment & Plan (1) Bipolar 1 disorder, depressed, severe: Status: Acute Code(s): F31.4 - Bipolar disorder, current episode depressed, severe, without psychotic features Plan Cardiac studies reviewed. Prior echocardiogram with LVEF 55-60% with no wall motion abnormalities and otherwise unremarkable. Myocardial perfusion imaging study shows a small area of mild intensity apical ischemia. Cardiac catheterization 2021 shows normal coronary arteries. Overall, no cardiac contraindications to proceed with ECT therapy. No clear explanation as to why she had a small troponin leak in the past after ECT. Possible coronary vasospasm from ECT? Cannot predict recurrence either. If clinically indicated, may pursue ECT therapy considering the above. At this moment the patient has enough criteria for ECT. Probably will need to rev paz her CV and filed for Section 7 and 8 since the patient is not compliant with medication grossly psychotic. But after discussing the case with her healthcare proxy and the legal team, on November 05 we are doing the paperwork to affirmed healthcare proxy. Encourage compliance with medication. On November 13 we got the information of the healthcare proxy we are going to start Invega Sustenna and discontinue Risperdal p.o. 11/16 Patient disorganized speech and behavior. Patient unable/unwilling to engage with sign writer hand. Staff reports not eating; did drink about 480 cc of fluids; not taking medications -since has had very poor p.o. intake, will get some baseline labs if patient willing 11/17 Patient had just fallen asleep when sign writer hand arrived and sign writer hand decided it was in patient's best interest to remain sleeping as she remains too disorganized to engage and sleep is likely therapeutic; also she is on a one-to-one and staff able to provide information. Staff reports that patient did a little better today regarding that she drank about 700 cc of fluid and ate half a sandwich. She said to staff person that she wanted to and go to [facility]. Reviewed labs: Mildly elevated white count Lytes WNL BUN/creatinine grossly WNL LFTs WNL Plan 1. Continue with Invega Sustenna as per plan. 2. We will consider ECT if she fails to Invega. Invega Sustenna 234 mg IM 2nd shot on November 20. Reason for continued inpatient stay Substantial Risk for: inability to function, rapid decompensation and med/psych decompensation Time Spent With Patient Time: Total time managing care of this patient today __20__ minutes.
[2023-11-22 20:00] VITALS: BP 141/56; PULSE 98; RESP 16; TEMP 36.1; O2SAT 97
[2023-11-22] MEDS: Gabapentin 300 MG CAPSULE 600 MG PO (20:52)
[2023-11-23] MEDS: Thiamine HCL 100 MG TABLET PO (09:54)
[2023-11-23] MEDS: Ibuprofen 400 MG TABLET PO (09:54)
[2023-11-23] MEDS: Docusate Sodium 100 MG CAPSULE PO (09:55)
[2023-11-23 09:57] VITALS: BP 139/66; PULSE 99; RESP 20; TEMP 36.3; O2SAT 97
--- NOTE | 2023-11-23 11:34 | MHC.CLN ---
F/U DIET=REGULAR. CONTINUE TO PROVIDE ENSURE BID (700 KCALS, 40 G PROTEIN). STAFF MAY PROVIDE AND ENCOURAGE ADDITIONAL SNACKS AND SUPPLEMENTS FROM UNIT KITCHEN. CONTINUES WITH USUALLY POOR PO. WILL ACCEPT BITES TO 25% AT TIMES. SIGNIFICANT WEIGHT LOSS SINCE ADMISSION -5.5%. WEIGHT STABLE X ONE WEEK. MAY BENEFIT FROM ALTERNATE HYDRATION/NUTRITION IF PO DOES NOT IMPROVE. CONTINUE TO FOLLOW FOR INTAKE AND WEIGHT.
--- NOTE | 2023-11-23 15:01 | P.PNPSI_ITS ---
Subjective Subjective Date of Service: 11/23/23 Reason For Visit: Bipolar disorder depressed with psychotic features Subjective Notes: Conditional Voluntary Interim History: The nursing staff reported the patient remains disorganized currently now off one-to-one but a little more organized at times. Still responding to internal stimuli and posturing but less than before. On interview the patient remains internally preoccupied still psychotic. She complained of mild dizziness. On physical exam there is slight cogwheeling. We are going to add a low dose of Cogentin. Mental Status Exam Mental Status Exam Patient Appearance: Inappropriate and Unkempt Patient Orientation: Person Level of Consciousness: Awake Patient Behavior: Guarded Mood Description: Withdrawn Affect Description: Blunted Patient Cognition Impaired: Yes Ability to Follow Directions: Fair Speech Pattern: Clear Hallucinations: Auditory Delusions: Paranoid Ideation and Ideas of Reference Thought Process: Incoherent and Distracted Thought Content: positive for Poverty of Content Judgement: Poor Diagnostics Vital Signs (24Hr): Vital Signs - 24 hr 11/22/23 20:00 11/23/23 09:57 Temperature 97 F 97.3 F Pulse Rate 98 99 Respiratory Rate 16 20 Blood Pressure 141/56 H 139/66 Pulse Oximetry 97 97 Oxygen Delivery Method Room Air Room Air BMI result Body Mass Index 20.7 Labs 11/11/23 15:25 11/17/23 19:20 Medications Medications Current Medications Acetaminophen (Acetaminophen 325 Mg Tablet) 650 mg PO Q6H PRN PRN Reason: Headache/Pain Mild Scale (1-3) Acetaminophen (Acetaminophen 325 Mg Tablet) 650 mg PO Q6H PRN PRN Reason: Fever Or Pain Al Hydroxide/Mg Hydroxide (Magnesium Hydrox/Alum Hydrox 30 Ml Oral.Susp) 30 ml PO Q6H PRN PRN Reason: Heartburn/Nausea Cyclobenzaprine HCl (Cyclobenzaprine Hcl 10 Mg Tablet) 10 mg PO TID PRN PRN Reason: muscle spasm Docusate Sodium (Docusate Sodium 100 Mg Capsule) 100 mg PO BID [facility] Last Admin: 11/23/23 09:55 Dose: 100 mg Gabapentin (Gabapentin 300 Mg Capsule) 600 mg PO BEDTIME [facility] Last Admin: 11/22/23 20:52 Dose: 600 mg Hydroxyzine HCl (Hydroxyzine Hcl 25 Mg Tablet) 25 mg PO Q6H PRN PRN Reason: Anxiety Last Admin: 11/15/23 05:57 Dose: 25 mg Ibuprofen (Ibuprofen 400 Mg Tablet) 400 mg PO TID [facility] Last Admin: 11/23/23 09:54 Dose: 400 mg Loratadine (Loratadine 10 Mg Tablet) 10 mg PO DAILY PRN PRN Reason: Allergy Symptoms Magnesium Hydroxide (Milk Of Magnesia 30 Ml Oral.Susp) 30 ml PO DAILY PRN PRN Reason: Constipation Omeprazole (Omeprazole 20 Mg Capsule.Dr) 20 mg PO BID@0630,1630 [facility] Last Admin: 11/23/23 05:55 Dose: Not Given Thiamine HCl (Thiamine Hcl 100 Mg Tablet) 100 mg PO BID [facility] Last Admin: 11/23/23 09:54 Dose: 100 mg Trazodone HCl (Trazodone Hcl 50 Mg Tablet) 50 mg PO BEDTIME MRX1 PRN PRN Reason: Insomnia Allergies Allergies Allergy/AdvReac Type Severity Reaction Status Date / Time bee pollen Allergy Severe Anaphylaxis Verified 01/25/22 15:16 levofloxacin [From Levaquin] Allergy Severe Itching Verified 01/25/22 15:16 enoxaparin [From Lovenox] Allergy Intermediate Rash Verified 01/25/22 15:16 Penicillins Allergy Unknown Unknown Verified 01/25/22 15:16 Seasonal Allergies Allergy Runny Nose Verified 01/25/22 15:16 venlafaxine [From Effexor] Allergy Constipatio Verified 01/25/22 15:16 n Assessment & Plan Assessment & Plan (1) Bipolar 1 disorder, depressed, severe: Status: Acute Code(s): F31.4 - Bipolar disorder, current episode depressed, severe, without psychotic features Plan Cardiac studies reviewed. Prior echocardiogram with LVEF 55-60% with no wall motion abnormalities and otherwise unremarkable. Myocardial perfusion imaging study shows a small area of mild intensity apical ischemia. Cardiac catheterization 2021 shows normal coronary arteries. Overall, no cardiac contraindications to proceed with ECT therapy. No clear explanation as to why she had a small troponin leak in the past after ECT. Possible coronary vasospasm from ECT? Cannot predict recurrence either. If clinically indicated, may pursue ECT therapy considering the above. At this moment the patient has enough criteria for ECT. Probably will need to rev paz her CV and filed for Section 7 and 8 since the patient is not compliant with medication grossly psychotic. But after discussing the case with her healthcare proxy and the legal team, on November 05 we are doing the paperwork to affirmed healthcare proxy. Encourage compliance with medication. On November 13 we got the information of the healthcare proxy we are going to start Invega Sustenna and discontinue Risperdal p.o. 11/16 Patient disorganized speech and behavior. Patient unable/unwilling to engage with telegraphic typewriter repairer. Staff reports not eating; did drink about 480 cc of fluids; not taking medications -since has had very poor p.o. intake, will get some baseline labs if patient willing 11/17 Patient had just fallen asleep when telegraphic typewriter repairer arrived and telegraphic typewriter repairer decided it was in patient's best interest to remain sleeping as she remains too disorganized to engage and sleep is likely therapeutic; also she is on a one-to-one and staff able to provide information. Staff reports that patient did a little better today regarding that she drank about 700 cc of fluid and ate half a sandwich. She said to staff person that she wanted to and go to [facility]. Reviewed labs: Mildly elevated white count Lytes WNL BUN/creatinine grossly WNL LFTs WNL Plan 1. Continue with Invega Sustenna as per plan. 2. We will consider ECT if she fails to Invega. Invega Sustenna 234 mg IM 2nd shot on November 20. 3. Cogentin 0.25 mg p.o. b.i.d. to target EPS Reason for continued inpatient stay Substantial Risk for: inability to function, rapid decompensation and med/psych decompensation Time Spent With Patient Time: Total time managing care of this patient today __20__ minutes.
[2023-11-23 20:00] VITALS: BP 112/68; PULSE 66; RESP 16; TEMP 36.3; O2SAT 96
[2023-11-24 08:00] VITALS: BP 135/79; PULSE 81; RESP 18; TEMP 36.9; O2SAT 98
--- NOTE | 2023-11-24 12:40 | P.PNPSI_ITS ---
Subjective Subjective Date of Service: 11/24/23 Reason For Visit: Bipolar disorder depressed with psychotic features Interim History: patient remains disorganized currently now off one-to-one- a little more organized at times. Still responding to internal stimuli and posturing but less than before. intrusive at times; On interview the patient remains internally preoccupied still psychotic. Medication Compliance: Yes Side effects from medications: No Review of Systems Review of Systems Unable to obtain as patient is not talking. Mental Status Exam Mental Status Exam Narrative: Appearance: wearing hospital gown, in bed, anxious Behavior: fairly cooperative Psychomotor: Retarded Speech: clear, normal rate/rhythm, volume Mood anxious and dysphoric TP: mostly linear thought blocking TC: hearing voices, that people are that she is that somehow she smells AH/VH: Delusions: persecutory/paranoia delusions Insight/judgment: some improvement, poor x 2. Memory/cog: alert, oriented x 2. grossly intact to conversational testing but not formally tested. judgment and insight: fair-poor Thought she would be better off denies active plan Patient Appearance: Inappropriate and Unkempt Patient Orientation: Person Level of Consciousness: Awake Patient Behavior: Guarded Mood Description: Withdrawn Affect Description: Blunted Patient Cognition Impaired: Yes Ability to Follow Directions: Fair Speech Pattern: Clear Diagnostics Vital Signs (24Hr): Vital Signs - 24 hr 11/23/23 20:00 11/24/23 08:00 Temperature 97.3 F 98.4 F Pulse Rate 66 81 Respiratory Rate 16 18 Blood Pressure 112/68 135/79 Pulse Oximetry 96 98 Oxygen Delivery Method Room Air Room Air BMI result Body Mass Index 20.7 Labs 11/11/23 15:25 11/17/23 19:20 Medications Medications Current Medications Acetaminophen (Acetaminophen 325 Mg Tablet) 650 mg PO Q6H PRN PRN Reason: Headache/Pain Mild Scale (1-3) Acetaminophen (Acetaminophen 325 Mg Tablet) 650 mg PO Q6H PRN PRN Reason: Fever Or Pain Al Hydroxide/Mg Hydroxide (Magnesium Hydrox/Alum Hydrox 30 Ml Oral.Susp) 30 ml PO Q6H PRN PRN Reason: Heartburn/Nausea Benztropine Mesylate (Benztropine Mesylate 0.5 Mg Tablet) 0.25 mg PO BID [facility] Last Admin: 11/24/23 08:16 Dose: Not Given Cyclobenzaprine HCl (Cyclobenzaprine Hcl 10 Mg Tablet) 10 mg PO TID PRN PRN Reason: muscle spasm Docusate Sodium (Docusate Sodium 100 Mg Capsule) 100 mg PO BID [facility] Last Admin: 11/24/23 08:17 Dose: Not Given Gabapentin (Gabapentin 300 Mg Capsule) 600 mg PO BEDTIME [facility] Last Admin: 11/23/23 20:35 Dose: Not Given Hydroxyzine HCl (Hydroxyzine Hcl 25 Mg Tablet) 25 mg PO Q6H PRN PRN Reason: Anxiety Last Admin: 11/15/23 05:57 Dose: 25 mg Ibuprofen (Ibuprofen 400 Mg Tablet) 400 mg PO TID [facility] Last Admin: 11/24/23 08:17 Dose: Not Given Loratadine (Loratadine 10 Mg Tablet) 10 mg PO DAILY PRN PRN Reason: Allergy Symptoms Magnesium Hydroxide (Milk Of Magnesia 30 Ml Oral.Susp) 30 ml PO DAILY PRN PRN Reason: Constipation Omeprazole (Omeprazole 20 Mg Capsule.Dr) 20 mg PO BID@0630,1630 [facility] Last Admin: 11/24/23 06:16 Dose: Not Given Thiamine HCl (Thiamine Hcl 100 Mg Tablet) 100 mg PO BID [facility] Last Admin: 11/24/23 08:17 Dose: Not Given Trazodone HCl (Trazodone Hcl 50 Mg Tablet) 50 mg PO BEDTIME MRX1 PRN PRN Reason: Insomnia Allergies Allergies Allergy/AdvReac Type Severity Reaction Status Date / Time bee pollen Allergy Severe Anaphylaxis Verified 01/25/22 15:16 levofloxacin [From Levaquin] Allergy Severe Itching Verified 01/25/22 15:16 enoxaparin [From Lovenox] Allergy Intermediate Rash Verified 01/25/22 15:16 Penicillins Allergy Unknown Unknown Verified 01/25/22 15:16 Seasonal Allergies Allergy Runny Nose Verified 01/25/22 15:16 venlafaxine [From Effexor] Allergy Constipatio Verified 01/25/22 15:16 n Assessment & Plan Assessment & Plan (1) Bipolar 1 disorder, depressed, severe: Status: Acute Code(s): F31.4 - Bipolar disorder, current episode depressed, severe, without psychotic features Plan Cardiac studies reviewed. Prior echocardiogram with LVEF 55-60% with no wall motion abnormalities and otherwise unremarkable. Myocardial perfusion imaging study shows a small area of mild intensity apical ischemia. Cardiac catheterization 2021 shows normal coronary arteries. Overall, no cardiac contraindications to proceed with ECT therapy. No clear explanation as to why she had a small troponin leak in the past after ECT. Possible coronary vasospasm from ECT? Cannot predict recurrence either. If clinically indicated, may pursue ECT therapy considering the above. At this moment the patient has enough criteria for ECT. Probably will need to rev paz her CV and filed for Section 7 and 8 since the patient is not compliant with medication grossly psychotic. But after discussing the case with her healthcare proxy and the legal team, on November 05 we are doing the paperwork to affirmed healthcare proxy. Encourage compliance with medication. On November 13 we got the information of the healthcare proxy we are going to start Invega Sustenna and discontinue Risperdal p.o. 11/16 Patient disorganized speech and behavior. Patient unable/unwilling to engage with flex o writer operator. Staff reports not eating; did drink about 480 cc of fluids; not taking medications -since has had very poor p.o. intake, will get some baseline labs if patient willing 11/17 Patient had just fallen asleep when flex o writer operator arrived and flex o writer operator decided it was in patient's best interest to remain sleeping as she remains too disorganized to engage and sleep is likely therapeutic; also she is on a one-to-one and staff able to provide information. Staff reports that patient did a little better today regarding that she drank about 700 cc of fluid and ate half a sandwich. She said to staff person that she wanted to and go to [facility]. Reviewed labs: Mildly elevated white count Lytes WNL BUN/creatinine grossly WNL LFTs WNL Plan 1. Continue with Invega Sustenna as per plan. 2. We will consider ECT if she fails to Invega. Invega Sustenna 234 mg IM 2nd shot on November 20. 3. Cogentin 0.25 mg p.o. b.i.d. to target EPS 11/23 continue tx Reason for continued inpatient stay Substantial Risk for: harm to self and inability to function Time Spent With Patient Time: Total time managing care of this patient today ____ minutes.
[2023-11-24 20:00] VITALS: RESP 16
--- NOTE | 2023-11-25 19:36 | P.PNPSI_ITS ---
Subjective Subjective Date of Service: 11/25/23 Reason For Visit: Bipolar disorder depressed with psychotic features Interim History: patient remains disorganized currently now off one-to-one- less anxious; Still responding to internal stimuli and posturing but less than before. intrusive at times but redirectible Review of Systems Review of Systems Unable to obtain as patient is not talking. Mental Status Exam Mental Status Exam Narrative: Appearance: wearing hospital gown, in bed, anxious Behavior: fairly cooperative Psychomotor: Retarded Speech: clear, normal rate/rhythm, volume Mood anxious and dysphoric TP: mostly linear thought blocking TC: hearing voices, that people are that she is that somehow she smells AH/VH: Delusions: persecutory/paranoia delusions Insight/judgment: some improvement, poor x 2. Memory/cog: alert, oriented x 2. grossly intact to conversational testing but not formally tested. judgment and insight: fair-poor Thought she would be better off denies active plan Patient Appearance: Inappropriate and Unkempt Patient Orientation: Person Level of Consciousness: Awake Patient Behavior: Guarded Mood Description: Withdrawn Affect Description: Blunted Patient Cognition Impaired: Yes Ability to Follow Directions: Fair Speech Pattern: Clear Diagnostics Vital Signs (24Hr): Vital Signs - 24 hr 11/24/23 20:00 Respiratory Rate 16 BMI result Body Mass Index 20.7 Labs 11/11/23 15:25 11/17/23 19:20 Medications Medications Current Medications Acetaminophen (Acetaminophen 325 Mg Tablet) 650 mg PO Q6H PRN PRN Reason: Headache/Pain Mild Scale (1-3) Acetaminophen (Acetaminophen 325 Mg Tablet) 650 mg PO Q6H PRN PRN Reason: Fever Or Pain Al Hydroxide/Mg Hydroxide (Magnesium Hydrox/Alum Hydrox 30 Ml Oral.Susp) 30 ml PO Q6H PRN PRN Reason: Heartburn/Nausea Benztropine Mesylate (Benztropine Mesylate 0.5 Mg Tablet) 0.25 mg PO BID [facility] Last Admin: 11/25/23 08:03 Dose: Not Given Cyclobenzaprine HCl (Cyclobenzaprine Hcl 10 Mg Tablet) 10 mg PO TID PRN PRN Reason: muscle spasm Docusate Sodium (Docusate Sodium 100 Mg Capsule) 100 mg PO BID [facility] Last Admin: 11/25/23 08:03 Dose: Not Given Gabapentin (Gabapentin 300 Mg Capsule) 600 mg PO BEDTIME [facility] Last Admin: 11/24/23 20:31 Dose: Not Given Hydroxyzine HCl (Hydroxyzine Hcl 25 Mg Tablet) 25 mg PO Q6H PRN PRN Reason: Anxiety Last Admin: 11/15/23 05:57 Dose: 25 mg Ibuprofen (Ibuprofen 400 Mg Tablet) 400 mg PO TID [facility] Last Admin: 11/25/23 14:30 Dose: Not Given Loratadine (Loratadine 10 Mg Tablet) 10 mg PO DAILY PRN PRN Reason: Allergy Symptoms Magnesium Hydroxide (Milk Of Magnesia 30 Ml Oral.Susp) 30 ml PO DAILY PRN PRN Reason: Constipation Omeprazole (Omeprazole 20 Mg Capsule.Dr) 20 mg PO BID@0630,1630 [facility] Last Admin: 11/25/23 16:18 Dose: Not Given Thiamine HCl (Thiamine Hcl 100 Mg Tablet) 100 mg PO BID [facility] Last Admin: 11/25/23 08:04 Dose: Not Given Trazodone HCl (Trazodone Hcl 50 Mg Tablet) 50 mg PO BEDTIME MRX1 PRN PRN Reason: Insomnia Allergies Allergies Allergy/AdvReac Type Severity Reaction Status Date / Time bee pollen Allergy Severe Anaphylaxis Verified 01/25/22 15:16 levofloxacin [From Levaquin] Allergy Severe Itching Verified 01/25/22 15:16 enoxaparin [From Lovenox] Allergy Intermediate Rash Verified 01/25/22 15:16 Penicillins Allergy Unknown Unknown Verified 01/25/22 15:16 Seasonal Allergies Allergy Runny Nose Verified 01/25/22 15:16 venlafaxine [From Effexor] Allergy Constipatio Verified 01/25/22 15:16 n Assessment & Plan Assessment & Plan (1) Bipolar 1 disorder, depressed, severe: Status: Acute Code(s): F31.4 - Bipolar disorder, current episode depressed, severe, without psychotic features Plan Cardiac studies reviewed. Prior echocardiogram with LVEF 55-60% with no wall motion abnormalities and otherwise unremarkable. Myocardial perfusion imaging study shows a small area of mild intensity apical ischemia. Cardiac catheterization 2021 shows normal coronary arteries. Overall, no cardiac contraindications to proceed with ECT therapy. No clear explanation as to why she had a small troponin leak in the past after ECT. Possible coronary vasospasm from ECT? Cannot predict recurrence either. If clinically indicated, may pursue ECT therapy considering the above. At this moment the patient has enough criteria for ECT. Probably will need to rev paz her CV and filed for Section 7 and 8 since the patient is not compliant with medication grossly psychotic. But after discussing the case with her healthcare proxy and the legal team, on November 05 we are doing the paperwork to affirmed healthcare proxy. Encourage compliance with medication. On November 13 we got the information of the healthcare proxy we are going to start Invega Sustenna and discontinue Risperdal p.o. 11/16 Patient disorganized speech and behavior. Patient unable/unwilling to engage with chart writer. Staff reports not eating; did drink about 480 cc of fluids; not taking medications -since has had very poor p.o. intake, will get some baseline labs if patient willing 11/17 Patient had just fallen asleep when chart writer arrived and chart writer decided it was in patient's best interest to remain sleeping as she remains too disorganized to engage and sleep is likely therapeutic; also she is on a one-to-one and staff able to provide information. Staff reports that patient did a little better today regarding that she drank about 700 cc of fluid and ate half a sandwich. She said to staff person that she wanted to and go to [facility]. Reviewed labs: Mildly elevated white count Lytes WNL BUN/creatinine grossly WNL LFTs WNL Plan 1. Continue with Invega Sustenna as per plan. 2. We will consider ECT if she fails to Invega. Invega Sustenna 234 mg IM 2nd shot on November 20. 3. Cogentin 0.25 mg p.o. b.i.d. to target EPS 11/23 continue tx 11/24 continue tx plan Reason for continued inpatient stay Substantial Risk for: inability to function Time Spent With Patient Time: Total time managing care of this patient today ____ minutes.
[2023-11-26 08:00] VITALS: BP 126/74; PULSE 94; RESP 18; TEMP 36.5; O2SAT 98
--- NOTE | 2023-11-26 09:59 | HO.PSYCHPN ---
Subjective Subjective Date of Service: 11/26/23 Reason For Visit: Bipolar disorder depressed with psychotic features Interim History: patient remains disorganized . less anxious; pleasant but confused. Still responding to internal stimuli and posturing but less than before. intrusive at times but redirectible Medication Compliance: Yes Side effects from medications: No Review of Systems Review of Systems Unable to obtain as patient is not talking. Mental Status Exam Mental Status Exam Narrative: Appearance: wearing hospital gown, in bed, anxious Behavior: fairly cooperative Psychomotor: Retarded Speech: clear, normal rate/rhythm, volume Mood anxious and dysphoric TP: mostly linear thought blocking TC: hearing voices, that people are that she is that somehow she smells AH/VH: Delusions: persecutory/paranoia delusions Insight/judgment: some improvement, poor x 2. Memory/cog: alert, oriented x 2. grossly intact to conversational testing but not formally tested. judgment and insight: fair-poor Thought she would be better off denies active plan Patient Appearance: Inappropriate and Unkempt Patient Orientation: Person Level of Consciousness: Awake Patient Behavior: Guarded Mood Description: Withdrawn Affect Description: Blunted Patient Cognition Impaired: Yes Ability to Follow Directions: Fair Speech Pattern: Clear Judgement: Fair Diagnostics Vital Signs (24Hr): Vital Signs - 24 hr 11/26/23 08:00 Temperature 97.7 F Pulse Rate 94 Respiratory Rate 18 Blood Pressure 126/74 Pulse Oximetry 98 Oxygen Delivery Method Room Air BMI result Body Mass Index 20.7 Labs 11/11/23 15:25 11/17/23 19:20 Medications Medications Current Medications Acetaminophen (Acetaminophen 325 Mg Tablet) 650 mg PO Q6H PRN PRN Reason: Headache/Pain Mild Scale (1-3) Acetaminophen (Acetaminophen 325 Mg Tablet) 650 mg PO Q6H PRN PRN Reason: Fever Or Pain Al Hydroxide/Mg Hydroxide (Magnesium Hydrox/Alum Hydrox 30 Ml Oral.Susp) 30 ml PO Q6H PRN PRN Reason: Heartburn/Nausea Benztropine Mesylate (Benztropine Mesylate 0.5 Mg Tablet) 0.25 mg PO BID [facility] Admin: 11/25/23 20:13 Dose: Not Given Cyclobenzaprine HCl (Cyclobenzaprine Hcl 10 Mg Tablet) 10 mg PO TID PRN PRN Reason: muscle spasm Docusate Sodium (Docusate Sodium 100 Mg Capsule) 100 mg PO BID [facility] Last Admin: 11/25/23 20:13 Dose: Not Given Gabapentin (Gabapentin 300 Mg Capsule) 600 mg PO BEDTIME [facility] Last Admin: 11/25/23 20:14 Dose: Not Given Hydroxyzine HCl (Hydroxyzine Hcl 25 Mg Tablet) 25 mg PO Q6H PRN PRN Reason: Anxiety Last Admin: 11/15/23 05:57 Dose: 25 mg Ibuprofen (Ibuprofen 400 Mg Tablet) 400 mg PO TID [facility] Last Admin: 11/25/23 20:30 Dose: Not Given Loratadine (Loratadine 10 Mg Tablet) 10 mg PO DAILY PRN PRN Reason: Allergy Symptoms Magnesium Hydroxide (Milk Of Magnesia 30 Ml Oral.Susp) 30 ml PO DAILY PRN PRN Reason: Constipation Omeprazole (Omeprazole 20 Mg Capsule.Dr) 20 mg PO BID@0630,1630 [facility] Last Admin: 11/26/23 06:00 Dose: Not Given Thiamine HCl (Thiamine Hcl 100 Mg Tablet) 100 mg PO BID [facility] Last Admin: 11/25/23 20:14 Dose: Not Given Trazodone HCl (Trazodone Hcl 50 Mg Tablet) 50 mg PO BEDTIME MRX1 PRN PRN Reason: Insomnia Allergies Allergies Allergy/AdvReac Type Severity Reaction Status Date / Time bee pollen Allergy Severe Anaphylaxis Verified 01/25/22 15:16 levofloxacin [From Levaquin] Allergy Severe Itching Verified 01/25/22 15:16 enoxaparin [From Lovenox] Allergy Intermediate Rash Verified 01/25/22 15:16 Penicillins Allergy Unknown Unknown Verified 01/25/22 15:16 Seasonal Allergies Allergy Runny Nose Verified 01/25/22 15:16 venlafaxine [From Effexor] Allergy Constipatio Verified 01/25/22 15:16 n Assessment & Plan Assessment & Plan (1) Bipolar 1 disorder, depressed, severe: Status: Acute Code(s): F31.4 - Bipolar disorder, current episode depressed, severe, without psychotic features Plan Cardiac studies reviewed. Prior echocardiogram with LVEF 55-60% with no wall motion abnormalities and otherwise unremarkable. Myocardial perfusion imaging study shows a small area of mild intensity apical ischemia. Cardiac catheterization 2021 shows normal coronary arteries. Overall, no cardiac contraindications to proceed with ECT therapy. No clear explanation as to why she had a small troponin leak in the past after ECT. Possible coronary vasospasm from ECT? Cannot predict recurrence either. If clinically indicated, may pursue ECT therapy considering the above. At this moment the patient has enough criteria for ECT. Probably will need to rev paz her CV and filed for Section 7 and 8 since the patient is not compliant with medication grossly psychotic. But after discussing the case with her healthcare proxy and the legal team, on November 05 we are doing the paperwork to affirmed healthcare proxy. Encourage compliance with medication. On November 13 we got the information of the healthcare proxy we are going to start Invega Sustenna and discontinue Risperdal p.o. 11/16 Patient disorganized speech and behavior. Patient unable/unwilling to engage with director underwriter sales. Staff reports not eating; did drink about 480 cc of fluids; not taking medications -since has had very poor p.o. intake, will get some baseline labs if patient willing 11/17 Patient had just fallen asleep when director underwriter sales arrived and director underwriter sales decided it was in patient's best interest to remain sleeping as she remains too disorganized to engage and sleep is likely therapeutic; also she is on a one-to-one and staff able to provide information. Staff reports that patient did a little better today regarding that she drank about 700 cc of fluid and ate half a sandwich. She said to staff person that she wanted to and go to [facility]. Reviewed labs: Mildly elevated white count Lytes WNL BUN/creatinine grossly WNL LFTs WNL Plan 1. Continue with Invega Sustenna as per plan. 2. We will consider ECT if she fails to Invega. Invega Sustenna 234 mg IM 2nd shot on November 20. 3. Cogentin 0.25 mg p.o. b.i.d. to target EPS 11/23 continue tx 11/24 continue tx plan 11/25 continue tx Reason for continued inpatient stay Substantial Risk for: inability to function Time Spent With Patient Time: Total time managing care of this patient today ____ minutes.
[2023-11-26 20:00] VITALS: RESP 18
[2023-11-27 08:49] VITALS: BP 114/61; PULSE 83; RESP 16; TEMP 36.6; O2SAT 99
--- NOTE | 2023-11-27 12:21 | P.PNPSI_ITS ---
Subjective Subjective Date of Service: 11/27/23 Reason For Visit: Bipolar disorder depressed with psychotic features Subjective Notes: Conditional Voluntary (By affirmed healthcare proxy) Interim History: The nursing staff reported the patient had being refusing her medications by mouth. She also refused vital signs. She slept well last night. On interview the patient denies new symptoms she looks internally preoccupied, not responding to Invega Sustenna. Mental Status Exam Mental Status Exam Patient Appearance: Unkempt Patient Orientation: Person Level of Consciousness: Disoriented and Inappropriate Patient Behavior: Guarded Mood Description: Withdrawn Affect Description: Constricted Patient Cognition Impaired: Yes Ability to Follow Directions: Good Speech Pattern: Clear Hallucinations: Auditory Delusions: Paranoid Ideation and Ideas of Reference Thought Process: Distracted Thought Content: positive for [place] and positive for Poverty of Content Judgement: Poor Diagnostics Vital Signs (24Hr): Vital Signs - 24 hr 11/26/23 20:00 11/27/23 08:49 Temperature 97.8 F Pulse Rate 83 Respiratory Rate 18 16 Blood Pressure 114/61 Pulse Oximetry 99 Oxygen Delivery Method Room Air BMI result Body Mass Index 20.7 Labs 11/11/23 15:25 11/17/23 19:20 Medications Medications Current Medications Acetaminophen (Acetaminophen 325 Mg Tablet) 650 mg PO Q6H PRN PRN Reason: Headache/Pain Mild Scale (1-3) Acetaminophen (Acetaminophen 325 Mg Tablet) 650 mg PO Q6H PRN PRN Reason: Fever Or Pain Al Hydroxide/Mg Hydroxide (Magnesium Hydrox/Alum Hydrox 30 Ml Oral.Susp) 30 ml PO Q6H PRN PRN Reason: Heartburn/Nausea Benztropine Mesylate (Benztropine Mesylate 0.5 Mg Tablet) 0.25 mg PO BID [facility] Last Admin: 11/27/23 08:55 Dose: Not Given Cyclobenzaprine HCl (Cyclobenzaprine Hcl 10 Mg Tablet) 10 mg PO TID PRN PRN Reason: muscle spasm Docusate Sodium (Docusate Sodium 100 Mg Capsule) 100 mg PO BID [facility] Last Admin: 11/27/23 08:55 Dose: Not Given Gabapentin (Gabapentin 300 Mg Capsule) 600 mg PO BEDTIME [facility] Last Admin: 11/26/23 21:08 Dose: Not Given Hydroxyzine HCl (Hydroxyzine Hcl 25 Mg Tablet) 25 mg PO Q6H PRN PRN Reason: Anxiety Last Admin: 11/15/23 05:57 Dose: 25 mg Ibuprofen (Ibuprofen 400 Mg Tablet) 400 mg PO TID [facility] Last Admin: 11/27/23 08:55 Dose: Not Given Loratadine (Loratadine 10 Mg Tablet) 10 mg PO DAILY PRN PRN Reason: Allergy Symptoms Magnesium Hydroxide (Milk Of Magnesia 30 Ml Oral.Susp) 30 ml PO DAILY PRN PRN Reason: Constipation Omeprazole (Omeprazole 20 Mg Capsule.Dr) 20 mg PO BID@0630,1630 [facility] Last Admin: 11/27/23 06:41 Dose: Not Given Thiamine HCl (Thiamine Hcl 100 Mg Tablet) 100 mg PO BID [facility] Last Admin: 11/27/23 08:55 Dose: Not Given Trazodone HCl (Trazodone Hcl 50 Mg Tablet) 50 mg PO BEDTIME MRX1 PRN PRN Reason: Insomnia Allergies Allergies Allergy/AdvReac Type Severity Reaction Status Date / Time bee pollen Allergy Severe Anaphylaxis Verified 01/25/22 15:16 levofloxacin [From Levaquin] Allergy Severe Itching Verified 01/25/22 15:16 enoxaparin [From Lovenox] Allergy Intermediate Rash Verified 01/25/22 15:16 Penicillins Allergy Unknown Unknown Verified 01/25/22 15:16 Seasonal Allergies Allergy Runny Nose Verified 01/25/22 15:16 venlafaxine [From Effexor] Allergy Constipatio Verified 01/25/22 15:16 n Assessment & Plan Assessment & Plan (1) Bipolar 1 disorder, depressed, severe: Status: Acute Code(s): F31.4 - Bipolar disorder, current episode depressed, severe, without psychotic features Plan Cardiac studies reviewed. Prior echocardiogram with LVEF 55-60% with no wall motion abnormalities and otherwise unremarkable. Myocardial perfusion imaging study shows a small area of mild intensity apical ischemia. Cardiac catheterization 2021 shows normal coronary arteries. Overall, no cardiac contraindications to proceed with ECT therapy. No clear explanation as to why she had a small troponin leak in the past after ECT. Possible coronary vasospasm from ECT? Cannot predict recurrence either. If clinically indicated, may pursue ECT therapy considering the above. At this moment the patient has enough criteria for ECT. Probably will need to rev paz her CV and filed for Section 7 and 8 since the patient is not compliant with medication grossly psychotic. But after discussing the case with her healthcare proxy and the legal team, on November 05 we are doing the paperwork to affirmed healthcare proxy. Encourage compliance with medication. On November 13 we got the information of the healthcare proxy we are going to start Invega Sustenna and discontinue Risperdal p.o. 11/16 Patient disorganized speech and behavior. Patient unable/unwilling to engage with development writer. Staff reports not eating; did drink about 480 cc of fluids; not taking medications -since has had very poor p.o. intake, will get some baseline labs if patient willing 11/17 Patient had just fallen asleep when development writer arrived and development writer decided it was in patient's best interest to remain sleeping as she remains too disorganized to engage and sleep is likely therapeutic; also she is on a one-to-one and staff able to provide information. Staff reports that patient did a little better today regarding that she drank about 700 cc of fluid and ate half a sandwich. She said to staff person that she wanted to and go to [facility]. Reviewed labs: Mildly elevated white count Lytes WNL BUN/creatinine grossly WNL LFTs WNL Plan 1. Continue with Invega Sustenna as per plan. 2. We will consider ECT if she fails to Invega. Invega Sustenna 234 mg IM 2nd shot on November 20. 3. Cogentin 0.25 mg p.o. b.i.d. to target EPS 4. We will contact the affirmed healthcare proxy to start ECT. Reason for continued inpatient stay Substantial Risk for: inability to function, rapid decompensation and med/psych decompensation Time Spent With Patient Time: Total time managing care of this patient today ____ minutes.
--- NOTE | 2023-11-28 13:21 | HO.PSYCHPN ---
Subjective Subjective Date of Service: 11/28/23 Reason For Visit: Bipolar disorder depressed with psychotic features Subjective Notes: Conditional Voluntary (By healthcare proxy affirm in court) Interim History: The nursing staff reported the patient has refused her medications she looks less religiously preoccupied. She slept 7 hours. On interview the patient denies new symptoms she looks internally preoccupied still psychotic. Hypoactive. She told me that she wants to have ECT. We are going to discuss with the healthcare proxy to start ECT next week. Mental Status Exam Mental Status Exam Patient Appearance: Unkempt Patient Orientation: Person Level of Consciousness: Awake Patient Behavior: Guarded Mood Description: Withdrawn Affect Description: Blunted Patient Cognition Impaired: Yes Ability to Follow Directions: Good Speech Pattern: Clear Hallucinations: Auditory Delusions: Paranoid Ideation and Grandiose Thought Process: Incoherent and Distracted Thought Content: positive for [place], positive for [place], positive for Poverty of Content and positive for Thought Blocking Judgement: Poor Diagnostics Vital Signs (24Hr): BMI result Body Mass Index 20.7 Labs 11/11/23 15:25 11/17/23 19:20 Medications Medications Current Medications Acetaminophen (Acetaminophen 325 Mg Tablet) 650 mg PO Q6H PRN PRN Reason: Headache/Pain Mild Scale (1-3) Acetaminophen (Acetaminophen 325 Mg Tablet) 650 mg PO Q6H PRN PRN Reason: Fever Or Pain Al Hydroxide/Mg Hydroxide (Magnesium Hydrox/Alum Hydrox 30 Ml Oral.Susp) 30 ml PO Q6H PRN PRN Reason: Heartburn/Nausea Benztropine Mesylate (Benztropine Mesylate 0.5 Mg Tablet) 0.25 mg PO BID [facility] Last Admin: 11/28/23 08:50 Dose: Not Given Cyclobenzaprine HCl (Cyclobenzaprine Hcl 10 Mg Tablet) 10 mg PO TID PRN PRN Reason: muscle spasm Docusate Sodium (Docusate Sodium 100 Mg Capsule) 100 mg PO BID [facility] Last Admin: 11/28/23 08:50 Dose: Not Given Gabapentin (Gabapentin 300 Mg Capsule) 600 mg PO BEDTIME [facility] Last Admin: 11/27/23 19:54 Dose: Not Given Hydroxyzine HCl (Hydroxyzine Hcl 25 Mg Tablet) 25 mg PO Q6H PRN PRN Reason: Anxiety Last Admin: 11/15/23 05:57 Dose: 25 mg Ibuprofen (Ibuprofen 400 Mg Tablet) 400 mg PO TID [facility] Last Admin: 11/28/23 08:50 Dose: Not Given Loratadine (Loratadine 10 Mg Tablet) 10 mg PO DAILY PRN PRN Reason: Allergy Symptoms Magnesium Hydroxide (Milk Of Magnesia 30 Ml Oral.Susp) 30 ml PO DAILY PRN PRN Reason: Constipation Omeprazole (Omeprazole 20 Mg Capsule.Dr) 20 mg PO BID@0630,1630 [facility] Last Admin: 11/28/23 06:15 Dose: Not Given Thiamine HCl (Thiamine Hcl 100 Mg Tablet) 100 mg PO BID [facility] Last Admin: 11/28/23 08:51 Dose: Not Given Trazodone HCl (Trazodone Hcl 50 Mg Tablet) 50 mg PO BEDTIME MRX1 PRN PRN Reason: Insomnia Allergies Allergies Allergy/AdvReac Type Severity Reaction Status Date / Time bee pollen Allergy Severe Anaphylaxis Verified 01/25/22 15:16 levofloxacin [From Levaquin] Allergy Severe Itching Verified 01/25/22 15:16 enoxaparin [From Lovenox] Allergy Intermediate Rash Verified 01/25/22 15:16 Penicillins Allergy Unknown Unknown Verified 01/25/22 15:16 Seasonal Allergies Allergy Runny Nose Verified 01/25/22 15:16 venlafaxine [From Effexor] Allergy Constipatio Verified 01/25/22 15:16 n Assessment & Plan Assessment & Plan (1) Bipolar 1 disorder, depressed, severe: Status: Acute Code(s): F31.4 - Bipolar disorder, current episode depressed, severe, without psychotic features Plan Cardiac studies reviewed. Prior echocardiogram with LVEF 55-60% with no wall motion abnormalities and otherwise unremarkable. Myocardial perfusion imaging study shows a small area of mild intensity apical ischemia. Cardiac catheterization 2021 shows normal coronary arteries. Overall, no cardiac contraindications to proceed with ECT therapy. No clear explanation as to why she had a small troponin leak in the past after ECT. Possible coronary vasospasm from ECT? Cannot predict recurrence either. If clinically indicated, may pursue ECT therapy considering the above. At this moment the patient has enough criteria for ECT. Probably will need to rev paz her CV and filed for Section 7 and 8 since the patient is not compliant with medication grossly psychotic. But after discussing the case with her healthcare proxy and the legal team, on November 05 we are doing the paperwork to affirmed healthcare proxy. Encourage compliance with medication. On November 13 we got the information of the healthcare proxy we are going to start Invega Sustenna and discontinue Risperdal p.o. 11/16 Patient disorganized speech and behavior. Patient unable/unwilling to engage with narrative writer. Staff reports not eating; did drink about 480 cc of fluids; not taking medications -since has had very poor p.o. intake, will get some baseline labs if patient willing 11/17 Patient had just fallen asleep when narrative writer arrived and narrative writer decided it was in patient's best interest to remain sleeping as she remains too disorganized to engage and sleep is likely therapeutic; also she is on a one-to-one and staff able to provide information. Staff reports that patient did a little better today regarding that she drank about 700 cc of fluid and ate half a sandwich. She said to staff person that she wanted to and go to [facility]. Reviewed labs: Mildly elevated white count Lytes WNL BUN/creatinine grossly WNL LFTs WNL Plan 1. Continue with Invega Sustenna as per plan. 2. We will consider ECT if she fails to Invega. Invega Sustenna 234 mg IM 2nd shot on November 20. 3. Cogentin 0.25 mg p.o. b.i.d. to target EPS 4. We will contact the affirmed healthcare proxy to start ECT. Reason for continued inpatient stay Substantial Risk for: inability to function, rapid decompensation and med/psych decompensation Time Spent With Patient Time: Total time managing care of this patient today ___20_ minutes.
--- NOTE | 2023-11-28 15:18 | MHC.CLN ---
F/U DIET=REGULAR. CONTINUE TO PROVIDE ENSURE BID (700 KCALS, 40 G PROTEIN). STAFF MAY PROVIDE AND ENCOURAGE ADDITIONAL SNACKS AND SUPPLEMENTS FROM UNIT KITCHEN. PO INTAKE VARIABLE. WILL ACCEPT MEALS AT TIMES. PER DOC, EXCELLENT INTAKE 11/24 WITH 2 MEALS X 100%, 1 MEAL X 50%. FOLLOW WITH TEAM FOR PLAN OF CARE. RD TO FOLLOW WEEKLY.
[2023-11-28 20:00] VITALS: RESP 16
[2023-11-29 07:00] VITALS: BMI 22.0
[2023-11-29 08:10] VITALS: BP 162/76; PULSE 74; RESP 18; TEMP 36.8; O2SAT 98
--- NOTE | 2023-11-29 08:24 | P.PNPSI_ITS ---
Subjective Subjective Date of Service: 11/29/23 Reason For Visit: Bipolar disorder depressed with psychotic features Subjective Notes: Conditional Voluntary Interim History: The nursing staff reported the patient has refused medications, she remains psychotic and disorganized at times. On interview the patient reported she has not feeling fine and she is willing to have ECT. Mental Status Exam Mental Status Exam Patient Appearance: Appropriate Patient Orientation: Person and Situation Level of Consciousness: Awake Patient Behavior: Guarded Mood Description: Withdrawn Affect Description: Blunted Patient Cognition Impaired: Yes Ability to Follow Directions: Good Speech Pattern: Clear Hallucinations: None Delusions: Paranoid Ideation Thought Process: Distracted and Slowed Thinking Thought Content: positive for [place] and positive for Poverty of Content Judgement: Poor Diagnostics Vital Signs (24Hr): Vital Signs - 24 hr 11/28/23 20:00 Respiratory Rate 16 BMI result Body Mass Index 20.7 Labs 11/11/23 15:25 11/17/23 19:20 Medications Medications Current Medications Acetaminophen (Acetaminophen 325 Mg Tablet) 650 mg PO Q6H PRN PRN Reason: Headache/Pain Mild Scale (1-3) Acetaminophen (Acetaminophen 325 Mg Tablet) 650 mg PO Q6H PRN PRN Reason: Fever Or Pain Al Hydroxide/Mg Hydroxide (Magnesium Hydrox/Alum Hydrox 30 Ml Oral.Susp) 30 ml PO Q6H PRN PRN Reason: Heartburn/Nausea Benztropine Mesylate (Benztropine Mesylate 0.5 Mg Tablet) 0.25 mg PO BID [facility] Last Admin: 11/28/23 23:58 Dose: Not Given Cyclobenzaprine HCl (Cyclobenzaprine Hcl 10 Mg Tablet) 10 mg PO TID PRN PRN Reason: muscle spasm Docusate Sodium (Docusate Sodium 100 Mg Capsule) 100 mg PO BID [facility] Last Admin: 11/28/23 23:58 Dose: Not Given Gabapentin (Gabapentin 300 Mg Capsule) 600 mg PO BEDTIME [facility] Last Admin: 11/28/23 23:58 Dose: Not Given Hydroxyzine HCl (Hydroxyzine Hcl 25 Mg Tablet) 25 mg PO Q6H PRN PRN Reason: Anxiety Last Admin: 11/15/23 05:57 Dose: 25 mg Ibuprofen (Ibuprofen 400 Mg Tablet) 400 mg PO TID [facility] Last Admin: 11/28/23 23:59 Dose: Not Given Loratadine (Loratadine 10 Mg Tablet) 10 mg PO DAILY PRN PRN Reason: Allergy Symptoms Magnesium Hydroxide (Milk Of Magnesia 30 Ml Oral.Susp) 30 ml PO DAILY PRN PRN Reason: Constipation Omeprazole (Omeprazole 20 Mg Capsule.Dr) 20 mg PO BID@0630,1630 [facility] Last Admin: 11/29/23 06:14 Dose: Not Given Thiamine HCl (Thiamine Hcl 100 Mg Tablet) 100 mg PO BID [facility] Last Admin: 11/28/23 23:59 Dose: Not Given Trazodone HCl (Trazodone Hcl 50 Mg Tablet) 50 mg PO BEDTIME MRX1 PRN PRN Reason: Insomnia Allergies Allergies Allergy/AdvReac Type Severity Reaction Status Date / Time bee pollen Allergy Severe Anaphylaxis Verified 01/25/22 15:16 levofloxacin [From Levaquin] Allergy Severe Itching Verified 01/25/22 15:16 enoxaparin [From Lovenox] Allergy Intermediate Rash Verified 01/25/22 15:16 Penicillins Allergy Unknown Unknown Verified 01/25/22 15:16 Seasonal Allergies Allergy Runny Nose Verified 01/25/22 15:16 venlafaxine [From Effexor] Allergy Constipatio Verified 01/25/22 15:16 n Assessment & Plan Assessment & Plan (1) Bipolar 1 disorder, depressed, severe: Status: Acute Code(s): F31.4 - Bipolar disorder, current episode depressed, severe, without psychotic features Plan Cardiac studies reviewed. Prior echocardiogram with LVEF 55-60% with no wall motion abnormalities and otherwise unremarkable. Myocardial perfusion imaging study shows a small area of mild intensity apical ischemia. Cardiac catheterization 2021 shows normal coronary arteries. Overall, no cardiac contraindications to proceed with ECT therapy. No clear explanation as to why she had a small troponin leak in the past after ECT. Possible coronary vasospasm from ECT? Cannot predict recurrence either. If clinically indicated, may pursue ECT therapy considering the above. At this moment the patient has enough criteria for ECT. Probably will need to rev paz her CV and filed for Section 7 and 8 since the patient is not compliant with medication grossly psychotic. But after discussing the case with her healthcare proxy and the legal team, on November 05 we are doing the paperwork to affirmed healthcare proxy. Encourage compliance with medication. On November 13 we got the information of the healthcare proxy we are going to start Invega Sustenna and discontinue Risperdal p.o. 11/16 Patient disorganized speech and behavior. Patient unable/unwilling to engage with comic writer. Staff reports not eating; did drink about 480 cc of fluids; not taking medications -since has had very poor p.o. intake, will get some baseline labs if patient willing 11/17 Patient had just fallen asleep when comic writer arrived and comic writer decided it was in patient's best interest to remain sleeping as she remains too disorganized to engage and sleep is likely therapeutic; also she is on a one-to-one and staff able to provide information. Staff reports that patient did a little better today regarding that she drank about 700 cc of fluid and ate half a sandwich. She said to staff person that she wanted to and go to [facility]. Reviewed labs: Mildly elevated white count Lytes WNL BUN/creatinine grossly WNL LFTs WNL Plan 1. Continue with Invega Sustenna as per plan. 2. We will consider ECT if she fails to Invega. Invega Sustenna 234 mg IM 2nd shot on November 20. 3. Cogentin 0.25 mg p.o. b.i.d. to target EPS 4. We will contact the affirmed healthcare proxy to start ECT. Reason for continued inpatient stay Substantial Risk for: inability to function, rapid decompensation and med/psych decompensation Time Spent With Patient Time: Total time managing care of this patient today __20__ minutes.
[2023-11-29 20:00] VITALS: RESP 18
--- NOTE | 2023-11-30 15:06 | P.PNPSI_ITS ---
Subjective Subjective Date of Service: 11/30/23 Reason For Visit: Bipolar disorder depressed with psychotic features Subjective Notes: Conditional Voluntary (By affirmed healthcare proxy) Healthcare Proxy: Yes Interim History: The nursing staff reported the patient had been seen psychotic wandering in the hallways she had been eating her snacks. The vp digital marketing social media and crm reported that we have a meeting with her sister who is the affirmed healthcare proxy, we explained about the procedure from [facility] and she agreed. On interview the patient reported that she has not feeling well she wants to have ECT. She is scheduled for next Sunday. Mental Status Exam Mental Status Exam Patient Appearance: Inappropriate and Unkempt Patient Orientation: Person and Situation Level of Consciousness: Restless Patient Behavior: Guarded and Passive Mood Description: Withdrawn Affect Description: Constricted Patient Cognition Impaired: Yes Ability to Follow Directions: Good Speech Pattern: Clear Hallucinations: None Delusions: Paranoid Ideation and Ideas of Reference Thought Process: Distracted and Slowed Thinking Thought Content: positive for [place] and positive for Poverty of Content Judgement: Poor Diagnostics Vital Signs (24Hr): Vital Signs - 24 hr 11/29/23 20:00 Respiratory Rate 18 BMI result Body Mass Index 22.0 Labs 11/11/23 15:25 11/17/23 19:20 Medications Medications Current Medications Acetaminophen (Acetaminophen 325 Mg Tablet) 650 mg PO Q6H PRN PRN Reason: Headache/Pain Mild Scale (1-3) Acetaminophen (Acetaminophen 325 Mg Tablet) 650 mg PO Q6H PRN PRN Reason: Fever Or Pain Al Hydroxide/Mg Hydroxide (Magnesium Hydrox/Alum Hydrox 30 Ml Oral.Susp) 30 ml PO Q6H PRN PRN Reason: Heartburn/Nausea Benztropine Mesylate (Benztropine Mesylate 0.5 Mg Tablet) 0.25 mg PO BID [facility] Last Admin: 11/30/23 09:04 Dose: Not Given Cyclobenzaprine HCl (Cyclobenzaprine Hcl 10 Mg Tablet) 10 mg PO TID PRN PRN Reason: muscle spasm Docusate Sodium (Docusate Sodium 100 Mg Capsule) 100 mg PO BID [facility] Last Admin: 11/30/23 09:13 Dose: Not Given Gabapentin (Gabapentin 300 Mg Capsule) 600 mg PO BEDTIME [facility] Last Admin: 11/29/23 21:12 Dose: Not Given Hydroxyzine HCl (Hydroxyzine Hcl 25 Mg Tablet) 25 mg PO Q6H PRN PRN Reason: Anxiety Last Admin: 11/15/23 05:57 Dose: 25 mg Ibuprofen (Ibuprofen 400 Mg Tablet) 400 mg PO TID [facility] Last Admin: 11/30/23 14:58 Dose: Not Given Loratadine (Loratadine 10 Mg Tablet) 10 mg PO DAILY PRN PRN Reason: Allergy Symptoms Magnesium Hydroxide (Milk Of Magnesia 30 Ml Oral.Susp) 30 ml PO DAILY PRN PRN Reason: Constipation Omeprazole (Omeprazole 20 Mg Capsule.Dr) 20 mg PO BID@0630,1630 [facility] Last Admin: 11/30/23 06:04 Dose: Not Given Thiamine HCl (Thiamine Hcl 100 Mg Tablet) 100 mg PO BID [facility] Last Admin: 11/30/23 09:15 Dose: Not Given Trazodone HCl (Trazodone Hcl 50 Mg Tablet) 50 mg PO BEDTIME MRX1 PRN PRN Reason: Insomnia Allergies Allergies Allergy/AdvReac Type Severity Reaction Status Date / Time bee pollen Allergy Severe Anaphylaxis Verified 01/25/22 15:16 levofloxacin [From Levaquin] Allergy Severe Itching Verified 01/25/22 15:16 enoxaparin [From Lovenox] Allergy Intermediate Rash Verified 01/25/22 15:16 Penicillins Allergy Unknown Unknown Verified 01/25/22 15:16 Seasonal Allergies Allergy Runny Nose Verified 01/25/22 15:16 venlafaxine [From Effexor] Allergy Constipatio Verified 01/25/22 15:16 n Assessment & Plan Assessment & Plan (1) Bipolar 1 disorder, depressed, severe: Status: Acute Code(s): F31.4 - Bipolar disorder, current episode depressed, severe, without psychotic features Plan Cardiac studies reviewed. Prior echocardiogram with LVEF 55-60% with no wall motion abnormalities and otherwise unremarkable. Myocardial perfusion imaging study shows a small area of mild intensity apical ischemia. Cardiac catheterization 2021 shows normal coronary arteries. Overall, no cardiac contraindications to proceed with ECT therapy. No clear explanation as to why she had a small troponin leak in the past after ECT. Possible coronary vasospasm from ECT? Cannot predict recurrence either. If clinically indicated, may pursue ECT therapy considering the above. At this moment the patient has enough criteria for ECT. Probably will need to rev paz her CV and filed for Section 7 and 8 since the patient is not compliant with medication grossly psychotic. But after discussing the case with her healthcare proxy and the legal team, on November 05 we are doing the paperwork to affirmed healthcare proxy. Encourage compliance with medication. On November 13 we got the information of the healthcare proxy we are going to start Invega Sustenna and discontinue Risperdal p.o. 11/16 Patient disorganized speech and behavior. Patient unable/unwilling to engage with copywriter. Staff reports not eating; did drink about 480 cc of fluids; not taking medications -since has had very poor p.o. intake, will get some baseline labs if patient willing 11/17 Patient had just fallen asleep when copywriter arrived and copywriter decided it was in patient's best interest to remain sleeping as she remains too disorganized to engage and sleep is likely therapeutic; also she is on a one-to-one and staff able to provide information. Staff reports that patient did a little better today regarding that she drank about 700 cc of fluid and ate half a sandwich. She said to staff person that she wanted to and go to [facility]. Reviewed labs: Mildly elevated white count Lytes WNL BUN/creatinine grossly WNL LFTs WNL Plan 1. Continue with Invega Sustenna as per plan. 2. We will consider ECT if she fails to Invega. Invega Sustenna 234 mg IM 2nd shot on November 20. 3. Cogentin 0.25 mg p.o. b.i.d. to target EPS 4. We will contact the affirmed healthcare proxy to start ECT. ECT had been scheduled for next Sunday Reason for continued inpatient stay Substantial Risk for: inability to function, rapid decompensation and med/psych decompensation Time Spent With Patient Time: Total time managing care of this patient today __20__ minutes.
[2023-11-30 20:00] VITALS: BP 132/70; PULSE 76; RESP 18; TEMP 36.6; O2SAT 97
[2023-12-01 09:02] VITALS: BP 165/78; PULSE 78; RESP 18; TEMP 36.8; O2SAT 98
--- NOTE | 2023-12-01 18:25 | HO.PSYCHPN ---
Subjective Subjective Date of Service: 12/01/23 Reason For Visit: Bipolar disorder depressed with psychotic features Interim History: Visable in milieu, napping as well, eating as well. Pt has initiated a course of ECT and is talking with the team about having it again at times. No symptoms of distress noted today. Medication Compliance: Yes Review of Systems Medical Review of Systems: unchanged Review of Systems Review of Systems Yes all other systems are reviewed and are negative Mental Status Exam Mental Status Exam Patient Appearance: Appropriate Patient Orientation: Person and Situation Level of Consciousness: Restless Patient Behavior: Guarded and Passive Mood Description: Withdrawn Affect Description: Constricted Patient Cognition Impaired: Yes Ability to Follow Directions: Good Speech Pattern: Clear Hallucinations: None Delusions: Paranoid Ideation and Ideas of Reference Thought Process: Distracted and Slowed Thinking Thought Content: positive for [place] and positive for Poverty of Content Judgement: Poor Diagnostics Vital Signs (24Hr): Vital Signs - 24 hr 11/30/23 20:00 12/01/23 09:02 Temperature 97.9 F 98.2 F Pulse Rate 76 78 Respiratory Rate 18 18 Blood Pressure 132/70 165/78 H Pulse Oximetry 97 98 Oxygen Delivery Method Room Air Room Air BMI result Body Mass Index 22.0 Labs 11/11/23 15:25 11/17/23 19:20 Medications Medications Current Medications Acetaminophen (Acetaminophen 325 Mg Tablet) 650 mg PO Q6H PRN PRN Reason: Headache/Pain Mild Scale (1-3) Acetaminophen (Acetaminophen 325 Mg Tablet) 650 mg PO Q6H PRN PRN Reason: Fever Or Pain Al Hydroxide/Mg Hydroxide (Magnesium Hydrox/Alum Hydrox 30 Ml Oral.Susp) 30 ml PO Q6H PRN PRN Reason: Heartburn/Nausea Benztropine Mesylate (Benztropine Mesylate 0.5 Mg Tablet) 0.25 mg PO BID [facility] Last Admin: 12/01/23 10:05 Dose: Not Given Cyclobenzaprine HCl (Cyclobenzaprine Hcl 10 Mg Tablet) 10 mg PO TID PRN PRN Reason: muscle spasm Docusate Sodium (Docusate Sodium 100 Mg Capsule) 100 mg PO BID [facility] Last Admin: 12/01/23 10:06 Dose: Not Given Gabapentin (Gabapentin 300 Mg Capsule) 600 mg PO BEDTIME [facility] Last Admin: 11/30/23 21:05 Dose: Not Given Hydroxyzine HCl (Hydroxyzine Hcl 25 Mg Tablet) 25 mg PO Q6H PRN PRN Reason: Anxiety Last Admin: 11/15/23 05:57 Dose: 25 mg Ibuprofen (Ibuprofen 400 Mg Tablet) 400 mg PO TID [facility] Last Admin: 12/01/23 17:14 Dose: Not Given Loratadine (Loratadine 10 Mg Tablet) 10 mg PO DAILY PRN PRN Reason: Allergy Symptoms Magnesium Hydroxide (Milk Of Magnesia 30 Ml Oral.Susp) 30 ml PO DAILY PRN PRN Reason: Constipation Omeprazole (Omeprazole 20 Mg Capsule.Dr) 20 mg PO BID@0630,1630 [facility] Last Admin: 12/01/23 17:15 Dose: Not Given Thiamine HCl (Thiamine Hcl 100 Mg Tablet) 100 mg PO BID [facility] Last Admin: 12/01/23 10:06 Dose: Not Given Trazodone HCl (Trazodone Hcl 50 Mg Tablet) 50 mg PO BEDTIME MRX1 PRN PRN Reason: Insomnia Allergies Allergies Allergy/AdvReac Type Severity Reaction Status Date / Time bee pollen Allergy Severe Anaphylaxis Verified 01/25/22 15:16 levofloxacin [From Levaquin] Allergy Severe Itching Verified 01/25/22 15:16 enoxaparin [From Lovenox] Allergy Intermediate Rash Verified 01/25/22 15:16 Penicillins Allergy Unknown Unknown Verified 01/25/22 15:16 Seasonal Allergies Allergy Runny Nose Verified 01/25/22 15:16 venlafaxine [From Effexor] Allergy Constipatio Verified 01/25/22 15:16 n Assessment & Plan Assessment & Plan (1) Bipolar 1 disorder, depressed, severe: Status: Acute Code(s): F31.4 - Bipolar disorder, current episode depressed, severe, without psychotic features Plan Cardiac studies reviewed. Prior echocardiogram with LVEF 55-60% with no wall motion abnormalities and otherwise unremarkable. Myocardial perfusion imaging study shows a small area of mild intensity apical ischemia. Cardiac catheterization 2021 shows normal coronary arteries. Overall, no cardiac contraindications to proceed with ECT therapy. No clear explanation as to why she had a small troponin leak in the past after ECT. Possible coronary vasospasm from ECT? Cannot predict recurrence either. If clinically indicated, may pursue ECT therapy considering the above. At this moment the patient has enough criteria for ECT. Probably will need to rev paz her CV and filed for Section 7 and 8 since the patient is not compliant with medication grossly psychotic. But after discussing the case with her healthcare proxy and the legal team, on November 05 we are doing the paperwork to affirmed healthcare proxy. Encourage compliance with medication. On November 13 we got the information of the healthcare proxy we are going to start Invega Sustenna and discontinue Risperdal p.o. 11/16 Patient disorganized speech and behavior. Patient unable/unwilling to engage with director underwriter sales. Staff reports not eating; did drink about 480 cc of fluids; not taking medications -since has had very poor p.o. intake, will get some baseline labs if patient willing 11/17 Patient had just fallen asleep when director underwriter sales arrived and director underwriter sales decided it was in patient's best interest to remain sleeping as she remains too disorganized to engage and sleep is likely therapeutic; also she is on a one-to-one and staff able to provide information. Staff reports that patient did a little better today regarding that she drank about 700 cc of fluid and ate half a sandwich. She said to staff person that she wanted to and go to [facility]. Reviewed labs: Mildly elevated white count Lytes WNL BUN/creatinine grossly WNL LFTs WNL Plan 1. Continue with Invega Sustenna as per plan. 2. We will consider ECT if she fails to Invega. Invega Sustenna 234 mg IM 2nd shot on November 20. 3. Cogentin 0.25 mg p.o. b.i.d. to target EPS 4. We will contact the affirmed healthcare proxy to start ECT. ECT had been scheduled for next Sunday Reason for continued inpatient stay Substantial Risk for: rapid decompensation Time Spent With Patient Time: Total time managing care of this patient today ____ minutes.
[2023-12-01 20:00] VITALS: BP 128/77; PULSE 94; RESP 18; TEMP 36.9; O2SAT 97
--- NOTE | 2023-12-02 10:55 | HO.PSYCHPN ---
Subjective Subjective Date of Service: 12/02/23 Reason For Visit: Bipolar disorder depressed with psychotic features Interim History: Pt seen, discussed with the team. No behavioral issues of concern reported. Team report she was able to call her brother independently on 11/30. ECT will continue. Pt is known for increased intake during the night, team requests 1:1 to assist in maintaining NPO and for support during the procedure until her return to [facility]. This was entered in her safety checks order. Today, calm, resting in bed, awake, spontaneous smile and greeting. Medication Compliance: Yes Side effects from medications: No Attending Groups: Intermittent Review of Systems Acute medical concerns: No Medical Review of Systems: unchanged Review of Systems Review of Systems Yes all other systems are reviewed and are negative Mental Status Exam Mental Status Exam Patient Appearance: Appropriate Patient Orientation: Person and Situation Level of Consciousness: Restless Patient Behavior: Guarded and Passive Mood Description: Withdrawn Affect Description: Constricted Patient Cognition Impaired: Yes Ability to Follow Directions: Good Speech Pattern: Clear Hallucinations: None Delusions: Paranoid Ideation and Ideas of Reference Thought Process: Distracted and Slowed Thinking Thought Content: positive for [place] and positive for Poverty of Content Judgement: Poor Diagnostics Vital Signs (24Hr): Vital Signs - 24 hr 12/01/23 20:00 Temperature 98.4 F Pulse Rate 94 Respiratory Rate 18 Blood Pressure 128/77 Pulse Oximetry 97 Oxygen Delivery Method Room Air BMI result Body Mass Index 22.0 Labs 11/11/23 15:25 11/17/23 19:20 Medications Medications Current Medications Acetaminophen (Acetaminophen 325 Mg Tablet) 650 mg PO Q6H PRN PRN Reason: Headache/Pain Mild Scale (1-3) Acetaminophen (Acetaminophen 325 Mg Tablet) 650 mg PO Q6H PRN PRN Reason: Fever Or Pain Al Hydroxide/Mg Hydroxide (Magnesium Hydrox/Alum Hydrox 30 Ml Oral.Susp) 30 ml PO Q6H PRN PRN Reason: Heartburn/Nausea Benztropine Mesylate (Benztropine Mesylate 0.5 Mg Tablet) 0.25 mg PO BID [facility] Last Admin: 12/02/23 10:04 Dose: Not Given Cyclobenzaprine HCl (Cyclobenzaprine Hcl 10 Mg Tablet) 10 mg PO TID PRN PRN Reason: muscle spasm Docusate Sodium (Docusate Sodium 100 Mg Capsule) 100 mg PO BID [facility] Last Admin: 12/02/23 10:05 Dose: Not Given Gabapentin (Gabapentin 300 Mg Capsule) 600 mg PO BEDTIME [facility] Last Admin: 12/01/23 20:23 Dose: Not Given Hydroxyzine HCl (Hydroxyzine Hcl 25 Mg Tablet) 25 mg PO Q6H PRN PRN Reason: Anxiety Last Admin: 11/15/23 05:57 Dose: 25 mg Ibuprofen (Ibuprofen 400 Mg Tablet) 400 mg PO TID [facility] Last Admin: 12/02/23 10:05 Dose: Not Given Loratadine (Loratadine 10 Mg Tablet) 10 mg PO DAILY PRN PRN Reason: Allergy Symptoms Magnesium Hydroxide (Milk Of Magnesia 30 Ml Oral.Susp) 30 ml PO DAILY PRN PRN Reason: Constipation Omeprazole (Omeprazole 20 Mg Capsule.Dr) 20 mg PO BID@0630,1630 [facility] Last Admin: 12/02/23 06:19 Dose: Not Given Thiamine HCl (Thiamine Hcl 100 Mg Tablet) 100 mg PO BID [facility] Last Admin: 12/02/23 10:05 Dose: Not Given Trazodone HCl (Trazodone Hcl 50 Mg Tablet) 50 mg PO BEDTIME MRX1 PRN PRN Reason: Insomnia Allergies Allergies Allergy/AdvReac Type Severity Reaction Status Date / Time bee pollen Allergy Severe Anaphylaxis Verified 01/25/22 15:16 levofloxacin [From Levaquin] Allergy Severe Itching Verified 01/25/22 15:16 enoxaparin [From Lovenox] Allergy Intermediate Rash Verified 01/25/22 15:16 Penicillins Allergy Unknown Unknown Verified 01/25/22 15:16 Seasonal Allergies Allergy Runny Nose Verified 01/25/22 15:16 venlafaxine [From Effexor] Allergy Constipatio Verified 01/25/22 15:16 n Assessment & Plan Assessment & Plan (1) Bipolar 1 disorder, depressed, severe: Status: Acute Code(s): F31.4 - Bipolar disorder, current episode depressed, severe, without psychotic features Assessment and Plan: 12/01: ECT to continue. One to one ordered for NPO times until after the treatment for added support and compliance. Plan Cardiac studies reviewed. Prior echocardiogram with LVEF 55-60% with no wall motion abnormalities and otherwise unremarkable. Myocardial perfusion imaging study shows a small area of mild intensity apical ischemia. Cardiac catheterization 2021 shows normal coronary arteries. Overall, no cardiac contraindications to proceed with ECT therapy. No clear explanation as to why she had a small troponin leak in the past after ECT. Possible coronary vasospasm from ECT? Cannot predict recurrence either. If clinically indicated, may pursue ECT therapy considering the above. At this moment the patient has enough criteria for ECT. Probably will need to rev paz her CV and filed for Section 7 and 8 since the patient is not compliant with medication grossly psychotic. But after discussing the case with her healthcare proxy and the legal team, on November 05 we are doing the paperwork to affirmed healthcare proxy. Encourage compliance with medication. On November 13 we got the information of the healthcare proxy we are going to start Invega Sustenna and discontinue Risperdal p.o. 11/16 Patient disorganized speech and behavior. Patient unable/unwilling to engage with typewriter mechanic. Staff reports not eating; did drink about 480 cc of fluids; not taking medications -since has had very poor p.o. intake, will get some baseline labs if patient willing 11/17 Patient had just fallen asleep when typewriter mechanic arrived and typewriter mechanic decided it was in patient's best interest to remain sleeping as she remains too disorganized to engage and sleep is likely therapeutic; also she is on a one-to-one and staff able to provide information. Staff reports that patient did a little better today regarding that she drank about 700 cc of fluid and ate half a sandwich. She said to staff person that she wanted to and go to [facility]. Reviewed labs: Mildly elevated white count Lytes WNL BUN/creatinine grossly WNL LFTs WNL Plan 1. Continue with Invega Sustenna as per plan. 2. We will consider ECT if she fails to Invega. Invega Sustenna 234 mg IM 2nd shot on November 20. 3. Cogentin 0.25 mg p.o. b.i.d. to target EPS 4. We will contact the affirmed healthcare proxy to start ECT. ECT had been scheduled for next Sunday Reason for continued inpatient stay Substantial Risk for: rapid decompensation Time Spent With Patient Time: Total time managing care of this patient today ____ minutes.
[2023-12-03] VITALS (10 sets, daily range): BP systolic 118–169; BP diastolic 55–98; PULSE 83–104; RESP 14–21; TEMP 36.3–36.9; O2SAT 94–98
--- NOTE | 2023-12-03 06:38 | PC.NURSE ---
Addendum entered by Amrik Unger RN 12/03/23 07:00: Patient was transferred once again back to PACU, psych attendant with patient, observed on 1:1 for safety, Original Note: Patient got transferred to PACU for her ECT, patient was placed on 1:1 to make sure she stays NPO, she got sent back due to her inability stay calm in PACU, currently wandering in hallway, will continue to monitor
--- NOTE | 2023-12-03 06:52 | HO.ANESPROP2 ---
[facility] Active Problems Active Problems: All Active Problems Preoperative cardiovascular examination (Acute) Pre-op evaluation (Acute) Medical clearance for psychiatric admission (Acute) Bipolar 1 disorder, depressed, severe (Acute) Elevated troponin (Acute) Chest discomfort (Acute) S/P cardiac catheterization (Acute) Bipolar 1 disorder (Acute) Varus deformity of knee (Acute) Osteoarthritis of left knee (Acute) Anxiety (Acute) GERD (gastroesophageal reflux disease) (Acute) Insomnia (Acute) Osteopenia (Acute) Murmur, cardiac (Acute) Status post total knee replacement, left (Acute) Acute deep vein thrombosis (DVT) of left tibial vein (Chronic) Past Medical History Medical History History of skin cancer Hx of bladder problems VIOT (generalized anxiety disorder) Murmur, cardiac Hx of thyroid nodule Osteopenia Hx of skin cancer, basal cell Seasonal allergies Insomnia Constipation GERD (gastroesophageal reflux disease) Anxiety History of electroconvulsive therapy Bipolar 1 disorder Family History Family History Mother Basal cell carcinoma (BCC) in situ of skin Osteoporosis Hyperlipidemia Father CAD (coronary artery disease) Alcoholism Sister Osteoporosis Depression Brother Cancer of tongue Cancer of skin Family history of problems with anesthesia: No Surgical History Surgical History Hx of colonoscopy H/O elbow surgery History of back surgery History of Problems with Anesthesia: No Social History Social History Household Members: None Housing: Apartment Are you a primary medical care manager to a significant other at home: No Do you presently have visiting nurse or other home services: Yes Unable to assess alcohol history related to: Unable to respond Comment: 1:1 suoervision Patient Tobacco Use Status: Former Tobacco user Tobacco use type: Cigarette Years Smoked: 30+, now vapes Smoked in Last 30 Days: No e-Cigarette/Vaping Use: Former Use Patient Interested in Nicotine Replacement: Yes Patient Given Instructions on How to Stop Smoking: Yes Date Education Initiated: 11/01/23 Second Hand Smoke Exposure: No Use of substances other than those prescribed or required for medical reasons: Yes Substance Use Type: Crack/Cocaine Last Used Substance: Unknown Currently Displaying Signs/Symptoms of Drug Intoxication Withdrawal: No Any prior treatment program specific to substance use: No Have you been hit, kicked, punched, or otherwise hurt by someone within the past year? If so, by whom?: No Do you feel safe in your current relationship?: Yes Is there a partner from a previous relationship who is making you feel unsafe now?: No Are you made to feel afraid or neglected: No [facility] Healthcare Practices: bahai Advance Directives: No Advance Directives Information Provided: No Do you have thoughts of harming others: None Do you have a plan to hurt others: No Plan Recently lost weight without trying: Yes How much weight loss: 14-23 pounds Eating poorly because of decreased appetite: Yes Nutrition screen score: 5 Nutrition Risks: Dental problems and Poor intake 0-25% >4 days Patient : No : No Poor oral hygiene: No service: No Current occupational status: unemployed and retired 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 presenting disorganized behavior when being interviewed. Meds Allergies Allergy/AdvReac Type Severity Reaction Status Date / Time bee pollen Allergy Severe Anaphylaxis Verified 01/25/22 15:16 levofloxacin [From Levaquin] Allergy Severe Itching Verified 01/25/22 15:16 enoxaparin [From Lovenox] Allergy Intermediate Rash Verified 01/25/22 15:16 Penicillins Allergy Unknown Unknown Verified 01/25/22 15:16 Seasonal Allergies Allergy Runny Nose Verified 01/25/22 15:16 venlafaxine [From Effexor] Allergy Constipatio Verified 01/25/22 15:16 n Active Medications: Current Medications Acetaminophen (Acetaminophen 325 Mg Tablet) 650 mg PO Q6H PRN PRN Reason: Headache/Pain Mild Scale (1-3) Acetaminophen (Acetaminophen 325 Mg Tablet) 650 mg PO Q6H PRN PRN Reason: Fever Or Pain Al Hydroxide/Mg Hydroxide (Magnesium Hydrox/Alum Hydrox 30 Ml Oral.Susp) 30 ml PO Q6H PRN PRN Reason: Heartburn/Nausea Benztropine Mesylate (Benztropine Mesylate 0.5 Mg Tablet) 0.25 mg PO BID [facility] Last Admin: 12/02/23 20:10 Dose: Not Given Cyclobenzaprine HCl (Cyclobenzaprine Hcl 10 Mg Tablet) 10 mg PO TID PRN PRN Reason: muscle spasm Docusate Sodium (Docusate Sodium 100 Mg Capsule) 100 mg PO BID [facility] Last Admin: 12/02/23 20:10 Dose: Not Given Gabapentin (Gabapentin 300 Mg Capsule) 600 mg PO BEDTIME [facility] Last Admin: 12/02/23 20:10 Dose: Not Given Hydroxyzine HCl (Hydroxyzine Hcl 25 Mg Tablet) 25 mg PO Q6H PRN PRN Reason: Anxiety Last Admin: 11/15/23 05:57 Dose: 25 mg Lactated Ringer's (Lr) 1,000 mls @ 50 mls/hr IVCONT .Q20H [facility] Ibuprofen (Ibuprofen 400 Mg Tablet) 400 mg PO TID [facility] Last Admin: 12/02/23 20:10 Dose: Not Given Loratadine (Loratadine 10 Mg Tablet) 10 mg PO DAILY PRN PRN Reason: Allergy Symptoms Magnesium Hydroxide (Milk Of Magnesia 30 Ml Oral.Susp) 30 ml PO DAILY PRN PRN Reason: Constipation Omeprazole (Omeprazole 20 Mg Capsule.Dr) 20 mg PO BID@0630,1630 [facility] Last Admin: 12/03/23 05:53 Dose: Not Given Thiamine HCl (Thiamine Hcl 100 Mg Tablet) 100 mg PO BID [facility] Last Admin: 12/02/23 20:10 Dose: Not Given Trazodone HCl (Trazodone Hcl 50 Mg Tablet) 50 mg PO BEDTIME MRX1 PRN PRN Reason: Insomnia Home Medications ?Medication ?Instructions ?Recorded ?Confirmed ?Last Taken ?Type omeprazole 20 mg capsule,delayed 20 mg PO BID 05/09/21 11/01/23 08/09/21 History release docusate sodium 100 mg capsule 1 cap PO BID 07/21/21 11/01/23 Unknown History loratadine 10 mg tablet (Claritin) 10 mg PO DAILY PRN Allergy Symptoms 07/21/21 11/01/23 Unknown History acetaminophen 325 mg tablet 650 mg PO Q6H PRN Fever Or Pain 09/08/21 11/01/23 10/29/23 14:05 History gabapentin 400 mg capsule 1,200 mg PO BEDTIME 01/25/22 11/01/23 10/31/23 19:37 History citalopram 20 mg tablet 20 mg PO DAILY 11/01/23 11/01/23 Unknown History cyclobenzaprine 10 mg tablet 10 mg PO TID PRN muscle spasm 11/01/23 11/01/23 Unknown History eszopiclone 3 mg tablet 3 mg PO BEDTIME 11/01/23 11/01/23 Unknown History ibuprofen 600 mg tablet 600 mg PO TID 11/01/23 11/01/23 10/31/23 14:26 History lorazepam 2 mg tablet 2 mg PO TID 11/01/23 11/01/23 11/01/23 14:00 History oxycodone 5 mg capsule 2.5 mg PO Q8H PRN Severe Pain 11/01/23 11/01/23 Unknown History (Scale Score 7-10) quetiapine 400 mg tablet 800 mg PO BEDTIME 11/01/23 11/01/23 Unknown History Exam Height,Weight and Vital Signs: Height 5 ft 6 in Weight 61.8 kg Last Vital Signs Temp 97.4 F 12/03/23 05:44 Pulse 94 12/01/23 20:00 Resp 17 12/03/23 05:44 BP 128/77 12/01/23 20:00 Pulse Ox 97 12/01/23 20:00 O2 Del Method Room Air 12/01/23 20:00 Pertinent Lab Results Pertinent Lab Results: Laboratory Tests 11/11/23 11/17/23 15:25 19:20 WBC 12.4 H RBC 4.04 L Hgb 12.4 Hct 36.0 L MCV 89.1 MCH 30.7 MCHC 34.4 RDW 12.8 Plt Count 249 MPV 9.1 L Immature Gran % (Auto) 0.6 H Neut % (Auto) 71.6 Lymph % (Auto) 13.2 L Floyd % (Auto) 14.0 H Eos % (Auto) 0.3 Baso % (Auto) 0.3 Lymph # (Auto) 1.6 Floyd # (Auto) 1.7 H Eos # (Auto) 0.0 Baso # (Auto) 0.0 Abs Immat Gran (auto) 0.08 H Absolute Neuts (auto) 8.9 H Absolute Nucleated RBC 0.000 Nucleated RBC % (auto) 0.0 Smear Tech's Comments VERIFIED Sodium 141 136 Potassium 3.4 3.4 Chloride 105 103 Carbon Dioxide 22 22 Anion Gap 17 14 BUN 27 H 22 H Creatinine 0.77 0.84 Estim Creat Clear Calc 67.2 61.1 Estimated GFR > 60 > 60 Random Glucose 65 166 H Calcium 9.5 9.6 Total Bilirubin 0.2 0.3 AST 23 22 ALT 29 24 Alkaline Phosphatase 106 104 Total Protein 6.5 7.1 Albumin 3.8 4.2 Airway Mallampati Class: II TM Dist: >3cm Neck ROM: Full Heart: rrr Lungs: cta Assessment and Plan Assessment Anesthesia Assessment: Anesthesia Plan Discussed and Chart Reviewed Final Anesthetic Review Family History of Problems with Anesthesia: No History of Problems with Anesthesia: No NPO: Yes ASA Class: III Final Preanesthetic Review: No Changes in Pt Med Stat, Meds/Allgs Chart Reviewed and Consent Obtained/Reviewed Patient Risk: Intermediate Procedure Risk: Intermediate Anesthetic Plan Anesthetic Plan: GA Disposition: Standard PACU
--- NOTE | 2023-12-03 06:59 | MHC.SHP ---
Pre-Procedural Eval Section A - 24 Hr Update-Section A only Date of Service: 12/03/23 The patient is an INPATIENT: Yes Changes since office visit: No Cold of Flu in the past 2 weeks, No New Medical Problems, No Changes in Medication and No Patient answered all questions The patient has been examined within 24 hours of the surgical procedure. The History & Physical has been completed within 30 days and I have reviewed it.: Yes Section B - Complete if H&P > 30 days Chief Complaint: Bipolar disorder depressed with psychotic features Details of Present Illness: Catatonic, transferred from [facility] for ECT, later became grossly psychotic since she was refusing medications, now catatonic. Relevant Family History (Specify if Yes): No Relevant Social History: None Present Medications: see Short Stay Collaborative assessment Medical History: No relevant PMH History of Previous Operations: Relevant previous surgery/procedure and date(s) Allergies: Allergies Allergy/AdvReac Type Severity Reaction Status Date / Time bee pollen Allergy Severe Anaphylaxis Verified 01/25/22 15:16 levofloxacin [From Levaquin] Allergy Severe Itching Verified 01/25/22 15:16 enoxaparin [From Lovenox] Allergy Intermediate Rash Verified 01/25/22 15:16 Penicillins Allergy Unknown Unknown Verified 01/25/22 15:16 Seasonal Allergies Allergy Runny Nose Verified 01/25/22 15:16 venlafaxine [From Effexor] Allergy Constipatio Verified 01/25/22 15:16 n Review of Systems Sugical H&P ROS: Negative: Constitution, Cardiovascular, Respiratory, Neurological, Psychiatric, Hem-Onc, Allergic/Immunologic, Gastrointestinal, Genitourinary, Musculoskeletal, Integumentary, Endocrine and Eyes/Ears/Nose/Throat Exam Surgical H&P Exam: Normal: HEENT, Normal: Heart, Normal: Lungs, Normal: Extremities, Normal: Abdomen, Normal: Skin and Normal: Neurological Plan Diagnosis/Plan: Unchanged I have reviewed the history and physical and performed a pertinent physical examination on my patient. No changes have occurred unless specified. Time Spent With Patient Time: Total time managing care of this patient today _20___ minutes.
--- NOTE | 2023-12-03 08:17 | HO.ECTPROC ---
ECT Procedure Note Diagnosis/Treatment Date of Service: 12/03/23 Diagnosis: Bipolar disorder and Catatonia Current Treatment Number: 1 Treatment: Series Interval Clinical Notes: The patient remains grossly psychotic, disorganized with catatonic like features. She agreed initially to go to ECT. We called her affirmed healthcare proxy by court and her sister agreed on the procedure. The patient cooperate with the IV and the treatment. ECT done as before, no complications, seizure resolved by itself after 41 seconds. We added Ativan 1 mg IV push after the procedure since the patient is catatonic. She woke up well. Time: Total time managing care of this patient today __30__ minutes. ECT Settings Device: THYMATRON DGx Electrode Placement: Bifrontal Program/Pulse Width: 0.50 Energy Percent: 100 Seizure Duration By EEG (in seconds): 41 By Motor Observation (in seconds): 30 Medications Administration General Anesthetic: Etomidate (16) Muscle Relaxant: Succinylcholine (80) Ancillary Medications Miscillaneous Medications: Other (Ativan 1 mg IV push after the procedure due to catatonia) Airway Management Airway Management: Bag Mask Ventilation Treatment Recommendations No Changes Recommended: No change Pt Tolerated Procedure w/o Issue: Yes
[2023-12-03] MEDS: LORazepam 2 MG/ML VIAL 1 MG IVPUSH (08:21)
[2023-12-03] MEDS: Benztropine Mesylate 0.5 MG TABLET 0.25 MG PO (09:55)
[2023-12-03] MEDS: Omeprazole 20 MG CAPSULE.DR PO (10:11)
[2023-12-03] MEDS: Ibuprofen 400 MG TABLET PO (10:11)
[2023-12-03] MEDS: Thiamine HCL 100 MG TABLET PO (10:12)
[2023-12-03] MEDS: Docusate Sodium 100 MG CAPSULE PO (10:12)
--- NOTE | 2023-12-03 15:42 | HO.PSYCHPN ---
Subjective Subjective Date of Service: 12/03/23 Reason For Visit: Bipolar disorder depressed with psychotic features Subjective Notes: Conditional Voluntary (By healthcare proxy) Interim History: The patient refused medications yesterday. Today she had ECT and when she came back she was awake and alert, cooperative pleasant more alert and oriented. On interview the patient denies new symptoms she feels much better. She has responded with ECT right away. Mental Status Exam Mental Status Exam Patient Appearance: Appropriate Patient Orientation: Person and Situation Level of Consciousness: Awake and Appropriate Patient Behavior: Guarded and Passive Mood Description: Withdrawn Affect Description: Constricted Patient Cognition Impaired: Yes Ability to Follow Directions: Good Speech Pattern: Clear Hallucinations: None Delusions: Not Present Thought Process: Distracted and Slowed Thinking Thought Content: positive for [place] and positive for Circumstantial Judgement: Fair Diagnostics Vital Signs (24Hr): Vital Signs - 24 hr 12/03/23 05:44 12/03/23 07:02 12/03/23 08:18 Temperature 97.4 F 97.4 F 98.5 F Pulse Rate 83 91 Respiratory Rate 17 18 21 H Blood Pressure 128/77 122/70 Pulse Oximetry 97 94 Oxygen Delivery Method Room Air Nasal Cannula with ETCO2 Oxygen Flow Rate 2 12/03/23 08:23 12/03/23 08:28 12/03/23 08:33 Temperature Pulse Rate 104 H 97 102 H Respiratory Rate 20 20 16 Blood Pressure 169/98 H 148/81 H 157/85 H Pulse Oximetry 96 95 96 Oxygen Delivery Method Nasal Cannula with ETCO2 Nasal Cannula with ETCO2 Nasal Cannula with ETCO2 Oxygen Flow Rate 2 2 2 12/03/23 08:48 12/03/23 09:00 12/03/23 09:03 Temperature 98 F 98.2 F 98 F Pulse Rate 86 95 87 Respiratory Rate 16 18 16 Blood Pressure 136/73 123/60 136/76 Pulse Oximetry 96 98 96 Oxygen Delivery Method Room Air Room Air Room Air Oxygen Flow Rate BMI result Body Mass Index 22.0 Labs 11/11/23 15:25 11/17/23 19:20 Medications Medications Current Medications Acetaminophen (Acetaminophen 325 Mg Tablet) 650 mg PO Q6H PRN PRN Reason: Headache/Pain Mild Scale (1-3) Acetaminophen (Acetaminophen 325 Mg Tablet) 650 mg PO Q6H PRN PRN Reason: Fever Or Pain Al Hydroxide/Mg Hydroxide (Magnesium Hydrox/Alum Hydrox 30 Ml Oral.Susp) 30 ml PO Q6H PRN PRN Reason: Heartburn/Nausea Benztropine Mesylate (Benztropine Mesylate 0.5 Mg Tablet) 0.25 mg PO BID [facility] Last Admin: 12/03/23 09:55 Dose: 0.25 mg Cyclobenzaprine HCl (Cyclobenzaprine Hcl 10 Mg Tablet) 10 mg PO TID PRN PRN Reason: muscle spasm Docusate Sodium (Docusate Sodium 100 Mg Capsule) 100 mg PO BID [facility] Last Admin: 12/03/23 10:12 Dose: 100 mg Gabapentin (Gabapentin 300 Mg Capsule) 600 mg PO BEDTIME [facility] Last Admin: 12/02/23 20:10 Dose: Not Given Hydroxyzine HCl (Hydroxyzine Hcl 25 Mg Tablet) 25 mg PO Q6H PRN PRN Reason: Anxiety Last Admin: 11/15/23 05:57 Dose: 25 mg Ibuprofen (Ibuprofen 400 Mg Tablet) 400 mg PO TID [facility] Last Admin: 12/03/23 14:08 Dose: Not Given Loratadine (Loratadine 10 Mg Tablet) 10 mg PO DAILY PRN PRN Reason: Allergy Symptoms Magnesium Hydroxide (Milk Of Magnesia 30 Ml Oral.Susp) 30 ml PO DAILY PRN PRN Reason: Constipation Omeprazole (Omeprazole 20 Mg Capsule.Dr) 20 mg PO BID@0630,1630 [facility] Last Admin: 12/03/23 10:11 Dose: 20 mg Thiamine HCl (Thiamine Hcl 100 Mg Tablet) 100 mg PO BID [facility] Last Admin: 12/03/23 10:12 Dose: 100 mg Trazodone HCl (Trazodone Hcl 50 Mg Tablet) 50 mg PO BEDTIME MRX1 PRN PRN Reason: Insomnia Allergies Allergies Allergy/AdvReac Type Severity Reaction Status Date / Time bee pollen Allergy Severe Anaphylaxis Verified 01/25/22 15:16 levofloxacin [From Levaquin] Allergy Severe Itching Verified 01/25/22 15:16 enoxaparin [From Lovenox] Allergy Intermediate Rash Verified 01/25/22 15:16 Penicillins Allergy Unknown Unknown Verified 01/25/22 15:16 Seasonal Allergies Allergy Runny Nose Verified 01/25/22 15:16 venlafaxine [From Effexor] Allergy Constipatio Verified 01/25/22 15:16 n Assessment & Plan Assessment & Plan (1) Bipolar 1 disorder, depressed, severe: Status: Acute Code(s): F31.4 - Bipolar disorder, current episode depressed, severe, without psychotic features Assessment and Plan: 12/01: ECT to continue. One to one ordered for NPO times until after the treatment for added support and compliance. Plan Cardiac studies reviewed. Prior echocardiogram with LVEF 55-60% with no wall motion abnormalities and otherwise unremarkable. Myocardial perfusion imaging study shows a small area of mild intensity apical ischemia. Cardiac catheterization 2021 shows normal coronary arteries. Overall, no cardiac contraindications to proceed with ECT therapy. No clear explanation as to why she had a small troponin leak in the past after ECT. Possible coronary vasospasm from ECT? Cannot predict recurrence either. If clinically indicated, may pursue ECT therapy considering the above. At this moment the patient has enough criteria for ECT. Probably will need to rev paz her CV and filed for Section 7 and 8 since the patient is not compliant with medication grossly psychotic. But after discussing the case with her healthcare proxy and the legal team, on November 05 we are doing the paperwork to affirmed healthcare proxy. Encourage compliance with medication. On November 13 we got the information of the healthcare proxy we are going to start Invega Sustenna and discontinue Risperdal p.o. 11/16 Patient disorganized speech and behavior. Patient unable/unwilling to engage with contract technical writer. Staff reports not eating; did drink about 480 cc of fluids; not taking medications -since has had very poor p.o. intake, will get some baseline labs if patient willing 11/17 Patient had just fallen asleep when contract technical writer arrived and contract technical writer decided it was in patient's best interest to remain sleeping as she remains too disorganized to engage and sleep is likely therapeutic; also she is on a one-to-one and staff able to provide information. Staff reports that patient did a little better today regarding that she drank about 700 cc of fluid and ate half a sandwich. She said to staff person that she wanted to and go to [facility]. Reviewed labs: Mildly elevated white count Lytes WNL BUN/creatinine grossly WNL LFTs WNL Plan 1. Continue with Invega Sustenna as per plan. 2. We will consider ECT if she fails to Invega. Invega Sustenna 234 mg IM 2nd shot on November 20. 3. Cogentin 0.25 mg p.o. b.i.d. to target EPS 4. We will contact the affirmed healthcare proxy to start ECT. ECT has improved her mental status. Reason for continued inpatient stay Substantial Risk for: inability to function, rapid decompensation and med/psych decompensation Time Spent With Patient Time: Total time managing care of this patient today __20__ minutes.
[2023-12-04] MEDS: Acetaminophen 325 MG TABLET 650 MG PO (06:43)
[2023-12-04] MEDS: Benztropine Mesylate 0.5 MG TABLET 0.25 MG PO (07:59)
[2023-12-04] MEDS: Docusate Sodium 100 MG CAPSULE PO (07:59)
[2023-12-04] MEDS: Ibuprofen 400 MG TABLET PO (07:59)
[2023-12-04] MEDS: Thiamine HCL 100 MG TABLET PO (07:59)
[2023-12-04 08:00] VITALS: BP 118/62; PULSE 86; RESP 16; TEMP 36.6; O2SAT 99
--- NOTE | 2023-12-04 11:42 | P.PNPSI_ITS ---
Subjective Subjective Date of Service: 12/04/23 Reason For Visit: Bipolar disorder depressed with psychotic features Subjective Notes: Conditional Voluntary (By affirmed healthcare proxy) Interim History: The nursing staff reported the patient was doing well yesterday after ECT but today she reports that she has not feeling well she is hypoactive. On interview the patient reports that she wants to have ECT tomorrow and she has not feeling as well as before. She has refused medications at night yesterday. Mental Status Exam Mental Status Exam Patient Appearance: Appropriate and Unkempt Patient Orientation: Person and Situation Level of Consciousness: Awake and Appropriate Patient Behavior: Guarded and Passive Mood Description: Withdrawn Affect Description: Constricted Patient Cognition Impaired: Yes Ability to Follow Directions: Fair Speech Pattern: Clear Hallucinations: None Delusions: Not Present Thought Process: Distracted and Slowed Thinking Thought Content: positive for [place] and positive for [place] of Content Judgement: Poor Diagnostics Vital Signs (24Hr): Vital Signs - 24 hr 12/03/23 20:00 12/04/23 08:00 Temperature 98 F 98 F Pulse Rate 90 86 Respiratory Rate 14 16 Blood Pressure 118/55 L 118/62 Pulse Oximetry 98 99 Oxygen Delivery Method Room Air Room Air BMI result Body Mass Index 22.0 Labs 11/11/23 15:25 11/17/23 19:20 Medications Medications Current Medications Acetaminophen (Acetaminophen 325 Mg Tablet) 650 mg PO Q6H PRN PRN Reason: Headache/Pain Mild Scale (1-3) Last Admin: 12/04/23 06:43 Dose: 650 mg Acetaminophen (Acetaminophen 325 Mg Tablet) 650 mg PO Q6H PRN PRN Reason: Fever Or Pain Al Hydroxide/Mg Hydroxide (Magnesium Hydrox/Alum Hydrox 30 Ml Oral.Susp) 30 ml PO Q6H PRN PRN Reason: Heartburn/Nausea Benztropine Mesylate (Benztropine Mesylate 0.5 Mg Tablet) 0.25 mg PO BID [facility] Last Admin: 12/04/23 07:59 Dose: 0.25 mg Cyclobenzaprine HCl (Cyclobenzaprine Hcl 10 Mg Tablet) 10 mg PO TID PRN PRN Reason: muscle spasm Docusate Sodium (Docusate Sodium 100 Mg Capsule) 100 mg PO BID [facility] Last Admin: 12/04/23 07:59 Dose: 100 mg Gabapentin (Gabapentin 300 Mg Capsule) 600 mg PO BEDTIME [facility] Last Admin: 12/03/23 20:55 Dose: Not Given Hydroxyzine HCl (Hydroxyzine Hcl 25 Mg Tablet) 25 mg PO Q6H PRN PRN Reason: Anxiety Last Admin: 11/15/23 05:57 Dose: 25 mg Ibuprofen (Ibuprofen 400 Mg Tablet) 400 mg PO TID [facility] Last Admin: 12/04/23 07:59 Dose: 400 mg Loratadine (Loratadine 10 Mg Tablet) 10 mg PO DAILY PRN PRN Reason: Allergy Symptoms Magnesium Hydroxide (Milk Of Magnesia 30 Ml Oral.Susp) 30 ml PO DAILY PRN PRN Reason: Constipation Omeprazole (Omeprazole 20 Mg Capsule.Dr) 20 mg PO BID@0630,1630 [facility] Last Admin: 12/04/23 06:00 Dose: Not Given Thiamine HCl (Thiamine Hcl 100 Mg Tablet) 100 mg PO BID [facility] Last Admin: 12/04/23 07:59 Dose: 100 mg Trazodone HCl (Trazodone Hcl 50 Mg Tablet) 50 mg PO BEDTIME MRX1 PRN PRN Reason: Insomnia Allergies Allergies Allergy/AdvReac Type Severity Reaction Status Date / Time bee pollen Allergy Severe Anaphylaxis Verified 01/25/22 15:16 levofloxacin [From Levaquin] Allergy Severe Itching Verified 01/25/22 15:16 enoxaparin [From Lovenox] Allergy Intermediate Rash Verified 01/25/22 15:16 Penicillins Allergy Unknown Unknown Verified 01/25/22 15:16 Seasonal Allergies Allergy Runny Nose Verified 01/25/22 15:16 venlafaxine [From Effexor] Allergy Constipatio Verified 01/25/22 15:16 n Assessment & Plan Assessment & Plan (1) Bipolar 1 disorder, depressed, severe: Status: Acute Code(s): F31.4 - Bipolar disorder, current episode depressed, severe, without psychotic features Assessment and Plan: 12/01: ECT to continue. One to one ordered for NPO times until after the treatment for added support and compliance. Plan Cardiac studies reviewed. Prior echocardiogram with LVEF 55-60% with no wall motion abnormalities and otherwise unremarkable. Myocardial perfusion imaging study shows a small area of mild intensity apical ischemia. Cardiac catheterization 2021 shows normal coronary arteries. Overall, no cardiac contraindications to proceed with ECT therapy. No clear explanation as to why she had a small troponin leak in the past after ECT. Possible coronary vasospasm from ECT? Cannot predict recurrence either. If clinically indicated, may pursue ECT therapy considering the above. At this moment the patient has enough criteria for ECT. Probably will need to rev paz her CV and filed for Section 7 and 8 since the patient is not compliant with medication grossly psychotic. But after discussing the case with her healthcare proxy and the legal team, on November 05 we are doing the paperwork to affirmed healthcare proxy. Encourage compliance with medication. On November 13 we got the information of the healthcare proxy we are going to start Invega Sustenna and discontinue Risperdal p.o. 11/16 Patient disorganized speech and behavior. Patient unable/unwilling to engage with justowriter operator. Staff reports not eating; did drink about 480 cc of fluids; not taking medications -since has had very poor p.o. intake, will get some baseline labs if patient willing 11/17 Patient had just fallen asleep when justowriter operator arrived and justowriter operator decided it was in patient's best interest to remain sleeping as she remains too disorganized to engage and sleep is likely therapeutic; also she is on a one-to-one and staff able to provide information. Staff reports that patient did a little better today regarding that she drank about 700 cc of fluid and ate half a sandwich. She said to staff person that she wanted to and go to [facility]. Reviewed labs: Mildly elevated white count Lytes WNL BUN/creatinine grossly WNL LFTs WNL Plan 1. Continue with Invega Sustenna as per plan. 2. We will consider ECT if she fails to Invega. Invega Sustenna 234 mg IM 2nd shot on November 20. 3. Cogentin 0.25 mg p.o. b.i.d. to target EPS 4. We will contact the affirmed healthcare proxy to start ECT. ECT has improved her mental status. Reason for continued inpatient stay Substantial Risk for: inability to function, rapid decompensation and med/psych decompensation Time Spent With Patient Time: Total time managing care of this patient today __20__ minutes.
[2023-12-05] VITALS (9 sets, daily range): BP systolic 110–170; BP diastolic 64–96; PULSE 67–100; RESP 16–25; TEMP 35.8–36.7; O2SAT 92–98
--- NOTE | 2023-12-05 00:42 | PC.NURSE ---
at 0001 pt is placed under npo status in anticipation of ECT. 1 to [address] in [address] to monitor for any attempts by pt for po.
--- NOTE | 2023-12-05 06:45 | P.CONAN_ITS ---
[facility] Active Problems Active Problems: All Active Problems Preoperative cardiovascular examination (Acute) Pre-op evaluation (Acute) Medical clearance for psychiatric admission (Acute) Bipolar 1 disorder, depressed, severe (Acute) Elevated troponin (Acute) Chest discomfort (Acute) S/P cardiac catheterization (Acute) Bipolar 1 disorder (Acute) Varus deformity of knee (Acute) Osteoarthritis of left knee (Acute) Anxiety (Acute) GERD (gastroesophageal reflux disease) (Acute) Insomnia (Acute) Osteopenia (Acute) Murmur, cardiac (Acute) Status post total knee replacement, left (Acute) Acute deep vein thrombosis (DVT) of left tibial vein (Chronic) Past Medical History Medical History History of skin cancer Hx of bladder problems VITO (generalized anxiety disorder) Murmur, cardiac Hx of thyroid nodule Osteopenia Hx of skin cancer, basal cell Seasonal allergies Insomnia Constipation GERD (gastroesophageal reflux disease) Anxiety History of electroconvulsive therapy Bipolar 1 disorder Family History Family History Mother Basal cell carcinoma (BCC) in situ of skin Osteoporosis Hyperlipidemia Father CAD (coronary artery disease) Alcoholism Sister Osteoporosis Depression Brother Cancer of tongue Cancer of skin Family history of problems with anesthesia: No Surgical History Surgical History Hx of colonoscopy H/O elbow surgery History of back surgery History of Problems with Anesthesia: No Social History Social History Household Members: None Housing: Apartment Are you a primary health care manager to a significant other at home: No Do you presently have visiting nurse or other home services: Yes Unable to assess alcohol history related to: Unable to respond Comment: 1:1 suoervision Patient Tobacco Use Status: Former Tobacco user Tobacco use type: Cigarette Years Smoked: 30+, now vapes Smoked in Last 30 Days: No e-Cigarette/Vaping Use: Former Use Patient Interested in Nicotine Replacement: Yes Patient Given Instructions on How to Stop Smoking: Yes Date Education Initiated: 11/01/23 Second Hand Smoke Exposure: No Use of substances other than those prescribed or required for medical reasons: Yes Substance Use Type: Crack/Cocaine Last Used Substance: Unknown Currently Displaying Signs/Symptoms of Drug Intoxication Withdrawal: No Any prior treatment program specific to substance use: No Have you been hit, kicked, punched, or otherwise hurt by someone within the past year? If so, by whom?: No Do you feel safe in your current relationship?: Yes Is there a partner from a previous relationship who is making you feel unsafe now?: No Are you made to feel afraid or neglected: No [facility] Healthcare Practices: lutheran Advance Directives: No Advance Directives Information Provided: No Do you have thoughts of harming others: None Do you have a plan to hurt others: No Plan Recently lost weight without trying: Yes How much weight loss: 14-23 pounds Eating poorly because of decreased appetite: Yes Nutrition screen score: 5 Nutrition Risks: Dental problems and Poor intake 0-25% >4 days Patient : No : No Poor oral hygiene: No service: No Current occupational status: unemployed and retired 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 presenting disorganized behavior when being interviewed. Meds Allergies Allergy/AdvReac Type Severity Reaction Status Date / Time bee pollen Allergy Severe Anaphylaxis Verified 01/25/22 15:16 levofloxacin [From Levaquin] Allergy Severe Itching Verified 01/25/22 15:16 enoxaparin [From Lovenox] Allergy Intermediate Rash Verified 01/25/22 15:16 Penicillins Allergy Unknown Unknown Verified 01/25/22 15:16 Seasonal Allergies Allergy Runny Nose Verified 01/25/22 15:16 venlafaxine [From Effexor] Allergy Constipatio Verified 01/25/22 15:16 n Active Medications: Current Medications Acetaminophen (Acetaminophen 325 Mg Tablet) 650 mg PO Q6H PRN PRN Reason: Headache/Pain Mild Scale (1-3) Last Admin: 12/04/23 06:43 Dose: 650 mg Acetaminophen (Acetaminophen 325 Mg Tablet) 650 mg PO Q6H PRN PRN Reason: Fever Or Pain Al Hydroxide/Mg Hydroxide (Magnesium Hydrox/Alum Hydrox 30 Ml Oral.Susp) 30 ml PO Q6H PRN PRN Reason: Heartburn/Nausea Benztropine Mesylate (Benztropine Mesylate 0.5 Mg Tablet) 0.25 mg PO BID [facility] Last Admin: 12/04/23 20:51 Dose: Not Given Cyclobenzaprine HCl (Cyclobenzaprine Hcl 10 Mg Tablet) 10 mg PO TID PRN PRN Reason: muscle spasm Docusate Sodium (Docusate Sodium 100 Mg Capsule) 100 mg PO BID [facility] Last Admin: 12/04/23 20:52 Dose: Not Given Gabapentin (Gabapentin 300 Mg Capsule) 600 mg PO BEDTIME [facility] Last Admin: 12/04/23 20:52 Dose: Not Given Hydroxyzine HCl (Hydroxyzine Hcl 25 Mg Tablet) 25 mg PO Q6H PRN PRN Reason: Anxiety Last Admin: 11/15/23 05:57 Dose: 25 mg Ibuprofen (Ibuprofen 400 Mg Tablet) 400 mg PO TID [facility] Last Admin: 12/04/23 20:52 Dose: Not Given Loratadine (Loratadine 10 Mg Tablet) 10 mg PO DAILY PRN PRN Reason: Allergy Symptoms Magnesium Hydroxide (Milk Of Magnesia 30 Ml Oral.Susp) 30 ml PO DAILY PRN PRN Reason: Constipation Omeprazole (Omeprazole 20 Mg Capsule.Dr) 20 mg PO BID@0630,1630 [facility] Last Admin: 12/05/23 05:43 Dose: Not Given Thiamine HCl (Thiamine Hcl 100 Mg Tablet) 100 mg PO BID [facility] Last Admin: 12/04/23 21:15 Dose: Not Given Trazodone HCl (Trazodone Hcl 50 Mg Tablet) 50 mg PO BEDTIME MRX1 PRN PRN Reason: Insomnia Home Medications ?Medication ?Instructions ?Recorded ?Confirmed ?Last Taken ?Type omeprazole 20 mg capsule,delayed 20 mg PO BID 05/09/21 11/01/23 08/09/21 History release docusate sodium 100 mg capsule 1 cap PO BID 07/21/21 11/01/23 Unknown History loratadine 10 mg tablet (Claritin) 10 mg PO DAILY PRN Allergy Symptoms 07/21/21 11/01/23 Unknown History acetaminophen 325 mg tablet 650 mg PO Q6H PRN Fever Or Pain 09/08/21 11/01/23 10/29/23 14:05 History gabapentin 400 mg capsule 1,200 mg PO BEDTIME 01/25/22 11/01/23 10/31/23 19:37 History citalopram 20 mg tablet 20 mg PO DAILY 11/01/23 11/01/23 Unknown History cyclobenzaprine 10 mg tablet 10 mg PO TID PRN muscle spasm 11/01/23 11/01/23 Unknown History eszopiclone 3 mg tablet 3 mg PO BEDTIME 11/01/23 11/01/23 Unknown History ibuprofen 600 mg tablet 600 mg PO TID 11/01/23 11/01/23 10/31/23 14:26 History lorazepam 2 mg tablet 2 mg PO TID 11/01/23 11/01/23 11/01/23 14:00 History oxycodone 5 mg capsule 2.5 mg PO Q8H PRN Severe Pain 11/01/23 11/01/23 Unknown History (Scale Score 7-10) quetiapine 400 mg tablet 800 mg PO BEDTIME 11/01/23 11/01/23 Unknown History Exam Height,Weight and Vital Signs: Height 5 ft 6 in Weight 61.8 kg Last Vital Signs Temp 97.2 F 12/05/23 06:37 Pulse 67 12/05/23 06:37 Resp 20 12/05/23 06:37 BP 124/66 12/05/23 06:37 Pulse Ox 96 12/05/23 06:37 O2 Del Method Room Air 12/05/23 06:37 O2 Flow Rate 2 12/03/23 08:33 Pertinent Lab Results Pertinent Lab Results: Laboratory Tests 11/11/23 11/17/23 15:25 19:20 WBC 12.4 H RBC 4.04 L Hgb 12.4 Hct 36.0 L MCV 89.1 MCH 30.7 MCHC 34.4 RDW 12.8 Plt Count 249 MPV 9.1 L Immature Gran % (Auto) 0.6 H Neut % (Auto) 71.6 Lymph % (Auto) 13.2 L [place] % (Auto) 14.0 H Eos % (Auto) 0.3 Baso % (Auto) 0.3 Lymph # (Auto) 1.6 [place] # (Auto) 1.7 H Eos # (Auto) 0.0 Baso # (Auto) 0.0 Abs Immat Gran (auto) 0.08 H Absolute Neuts (auto) 8.9 H Absolute Nucleated RBC 0.000 Nucleated RBC % (auto) 0.0 Smear Tech's Comments VERIFIED Sodium 141 136 Potassium 3.4 3.4 Chloride 105 103 Carbon Dioxide 22 22 Anion Gap 17 14 BUN 27 H 22 H Creatinine 0.77 0.84 Estim Creat Clear Calc 67.2 61.1 Estimated GFR > 60 > 60 Random Glucose 65 166 H Calcium 9.5 9.6 Total Bilirubin 0.2 0.3 AST 23 22 ALT 29 24 Alkaline Phosphatase 106 104 Total Protein 6.5 7.1 Albumin 3.8 4.2 Airway Mallampati Class: II TM Dist: >3cm Neck ROM: Full Denture: Upper Heart: rrr Lungs: cta Assessment and Plan Assessment Anesthesia Assessment: Anesthesia Plan Discussed and Chart Reviewed Final Anesthetic Review Family History of Problems with Anesthesia: No History of Problems with Anesthesia: No NPO: Yes ASA Class: III Final Preanesthetic Review: No Changes in Pt Med Stat, Meds/Allgs Chart Reviewed and Consent Obtained/Reviewed Patient Risk: Intermediate Procedure Risk: Intermediate Anesthetic Plan Anesthetic Plan: GA Disposition: Standard PACU
[2023-12-05] MEDS: Lactated Ringers 1,000 ML 50 ML IVCONT (07:12)
--- NOTE | 2023-12-05 07:26 | MHC.SHP ---
Pre-Procedural Eval Section A - 24 Hr Update-Section A only Date of Service: 12/05/23 The patient is an INPATIENT: Yes Changes since office visit: No Cold of Flu in the past 2 weeks, No New Medical Problems, No Changes in Medication and No Patient answered all questions The patient has been examined within 24 hours of the surgical procedure. The History & Physical has been completed within 30 days and I have reviewed it.: Yes Section B - Complete if H&P > 30 days Chief Complaint: Bipolar disorder depressed with psychotic features Allergies: Allergies Allergy/AdvReac Type Severity Reaction Status Date / Time bee pollen Allergy Severe Anaphylaxis Verified 01/25/22 15:16 levofloxacin [From Levaquin] Allergy Severe Itching Verified 01/25/22 15:16 enoxaparin [From Lovenox] Allergy Intermediate Rash Verified 01/25/22 15:16 Penicillins Allergy Unknown Unknown Verified 01/25/22 15:16 Seasonal Allergies Allergy Runny Nose Verified 01/25/22 15:16 venlafaxine [From Effexor] Allergy Constipatio Verified 01/25/22 15:16 n Plan I have reviewed the history and physical and performed a pertinent physical examination on my patient. No changes have occurred unless specified. Time Spent With Patient Time: Total time managing care of this patient today ____ minutes.
--- NOTE | 2023-12-05 07:36 | HO.ECTPROC ---
ECT Procedure Note Diagnosis/Treatment Date of Service: 12/05/23 Diagnosis: Bipolar disorder and Catatonia Previous ECT Date: 12/03/23 Current Treatment Number: 2 Treatment: Series Interval Clinical Notes: The patient responded very well to the first ECT but she became psychotic and confused after 24h. She denies side effects with the previous ECT. ECT done with no changes on parameters, no complications. We gave her again Ativan 1 mg IVP for catatonia after the procedure. Time: Total time managing care of this patient today __30__ minutes. ECT Settings Device: THYMATRON DGx Electrode Placement: Bifrontal Program/Pulse Width: 0.50 Energy Percent: 100 Seizure Duration By EEG (in seconds): 38 By Motor Observation (in seconds): 31 Medications Administration General Anesthetic: Etomidate (15) Muscle Relaxant: Succinylcholine (100) Ancillary Medications Analgesics: Torodol - Pre ECT Anti-emetics: Zofran - Pre ECT Miscillaneous Medications: Other (Ativan 1 mg IVP after the procedure) Airway Management Airway Management: Bag Mask Ventilation Treatment Recommendations No Changes Recommended: No change Pt Tolerated Procedure w/o Issue: Yes
[2023-12-05] MEDS: LORazepam 2 MG/ML VIAL 1 MG IVPUSH ×2 (07:42→08:04)
[2023-12-05] MEDS: Ibuprofen 400 MG TABLET PO (08:34)
[2023-12-05] MEDS: Docusate Sodium 100 MG CAPSULE PO (08:34)
[2023-12-05] MEDS: Omeprazole 20 MG CAPSULE.DR PO (08:34)
[2023-12-05] MEDS: Thiamine HCL 100 MG TABLET PO (08:34)
[2023-12-05] MEDS: Benztropine Mesylate 0.5 MG TABLET 0.25 MG PO (08:35)
--- NOTE | 2023-12-05 14:52 | MHC.CLN ---
F/U DIET=REGULAR. CONTINUE TO PROVIDE ENSURE BID (700 KCALS, 40 G PROTEIN). STAFF MAY PROVIDE AND ENCOURAGE ADDITIONAL SNACKS AND SUPPLEMENTS FROM UNIT KITCHEN. PO INTAKE VARIABLE AND OVERALL APPEARS IMPROVED. FOLLOW WITH TEAM FOR PLAN OF CARE. RD TO FOLLOW WEEKLY.
--- NOTE | 2023-12-05 15:45 | HO.PSYCHPN ---
Subjective Subjective Date of Service: 12/05/23 Reason For Visit: Bipolar disorder depressed with psychotic features Subjective Notes: Conditional Voluntary Interim History: The nursing staff reported the patient was restless pacing in the hallway, very disorganized. The improvement of her mental status improved after ECT on Sunday but it did not last. Today she had ECT and today she was alert awake, pleasant cooperative stating that she wants to get better. We will try to contact her sister reported improvement. Mental Status Exam Mental Status Exam Patient Appearance: Appropriate Patient Orientation: Person and Situation Level of Consciousness: Awake and Appropriate Patient Behavior: Guarded Mood Description: Calm Affect Description: Labile Patient Cognition Impaired: Yes Ability to Follow Directions: Good Speech Pattern: Clear Hallucinations: None Delusions: Ideas of Reference Thought Process: Distracted and Slowed Thinking Thought Content: positive for [place] and positive for Perseveration Judgement: Fair Diagnostics Vital Signs (24Hr): Vital Signs - 24 hr 12/05/23 05:43 12/05/23 06:37 12/05/23 07:46 Temperature 97.5 F 97.2 F 98.1 F Pulse Rate 80 67 87 Respiratory Rate 16 20 16 Blood Pressure 131/74 124/66 156/93 H Pulse Oximetry 97 96 93 Oxygen Delivery Method Room Air Room Air 12/05/23 07:51 12/05/23 07:56 12/05/23 08:01 Temperature Pulse Rate 100 91 88 Respiratory Rate 18 25 H 18 Blood Pressure 170/89 H 148/96 H 136/79 Pulse Oximetry 94 92 94 Oxygen Delivery Method Room Air Room Air Room Air 12/05/23 08:16 12/05/23 08:45 Temperature 98.1 F 97.6 F Pulse Rate 78 70 Respiratory Rate 16 18 Blood Pressure 122/70 118/64 Pulse Oximetry 95 98 Oxygen Delivery Method Room Air Room Air BMI result Body Mass Index 22.0 Labs 11/11/23 15:25 11/17/23 19:20 Medications Medications Current Medications Acetaminophen (Acetaminophen 325 Mg Tablet) 650 mg PO Q6H PRN PRN Reason: Headache/Pain Mild Scale (1-3) Last Admin: 12/04/23 06:43 Dose: 650 mg Acetaminophen (Acetaminophen 325 Mg Tablet) 650 mg PO Q6H PRN PRN Reason: Fever Or Pain Al Hydroxide/Mg Hydroxide (Magnesium Hydrox/Alum Hydrox 30 Ml Oral.Susp) 30 ml PO Q6H PRN PRN Reason: Heartburn/Nausea Benztropine Mesylate (Benztropine Mesylate 0.5 Mg Tablet) 0.25 mg PO BID [facility] Last Admin: 12/05/23 08:35 Dose: 0.25 mg Cyclobenzaprine HCl (Cyclobenzaprine Hcl 10 Mg Tablet) 10 mg PO TID PRN PRN Reason: muscle spasm Docusate Sodium (Docusate Sodium 100 Mg Capsule) 100 mg PO BID [facility] Last Admin: 12/05/23 08:34 Dose: 100 mg Gabapentin (Gabapentin 300 Mg Capsule) 600 mg PO BEDTIME [facility] Last Admin: 12/04/23 20:52 Dose: Not Given Hydroxyzine HCl (Hydroxyzine Hcl 25 Mg Tablet) 25 mg PO Q6H PRN PRN Reason: Anxiety Last Admin: 11/15/23 05:57 Dose: 25 mg Ibuprofen (Ibuprofen 400 Mg Tablet) 400 mg PO TID [facility] Last Admin: 12/05/23 14:02 Dose: Not Given Loratadine (Loratadine 10 Mg Tablet) 10 mg PO DAILY PRN PRN Reason: Allergy Symptoms Magnesium Hydroxide (Milk Of Magnesia 30 Ml Oral.Susp) 30 ml PO DAILY PRN PRN Reason: Constipation Omeprazole (Omeprazole 20 Mg Capsule.Dr) 20 mg PO BID@0630,1630 [facility] Last Admin: 12/05/23 08:34 Dose: 20 mg Thiamine HCl (Thiamine Hcl 100 Mg Tablet) 100 mg PO BID [facility] Last Admin: 12/05/23 08:34 Dose: 100 mg Trazodone HCl (Trazodone Hcl 50 Mg Tablet) 50 mg PO BEDTIME MRX1 PRN PRN Reason: Insomnia Allergies Allergies Allergy/AdvReac Type Severity Reaction Status Date / Time bee pollen Allergy Severe Anaphylaxis Verified 01/25/22 15:16 levofloxacin [From Levaquin] Allergy Severe Itching Verified 01/25/22 15:16 enoxaparin [From Lovenox] Allergy Intermediate Rash Verified 01/25/22 15:16 Penicillins Allergy Unknown Unknown Verified 01/25/22 15:16 Seasonal Allergies Allergy Runny Nose Verified 01/25/22 15:16 venlafaxine [From Effexor] Allergy Constipatio Verified 01/25/22 15:16 n Assessment & Plan Assessment & Plan (1) Bipolar 1 disorder, depressed, severe: Status: Acute Code(s): F31.4 - Bipolar disorder, current episode depressed, severe, without psychotic features Assessment and Plan: 12/01: ECT to continue. One to one ordered for NPO times until after the treatment for added support and compliance. Plan Cardiac studies reviewed. Prior echocardiogram with LVEF 55-60% with no wall motion abnormalities and otherwise unremarkable. Myocardial perfusion imaging study shows a small area of mild intensity apical ischemia. Cardiac catheterization 2021 shows normal coronary arteries. Overall, no cardiac contraindications to proceed with ECT therapy. No clear explanation as to why she had a small troponin leak in the past after ECT. Possible coronary vasospasm from ECT? Cannot predict recurrence either. If clinically indicated, may pursue ECT therapy considering the above. At this moment the patient has enough criteria for ECT. Probably will need to rev paz her CV and filed for Section 7 and 8 since the patient is not compliant with medication grossly psychotic. But after discussing the case with her healthcare proxy and the legal team, on November 05 we are doing the paperwork to affirmed healthcare proxy. Encourage compliance with medication. On November 13 we got the information of the healthcare proxy we are going to start Invega Sustenna and discontinue Risperdal p.o. 11/16 Patient disorganized speech and behavior. Patient unable/unwilling to engage with tag writer. Staff reports not eating; did drink about 480 cc of fluids; not taking medications -since has had very poor p.o. intake, will get some baseline labs if patient willing 11/17 Patient had just fallen asleep when tag writer arrived and tag writer decided it was in patient's best interest to remain sleeping as she remains too disorganized to engage and sleep is likely therapeutic; also she is on a one-to-one and staff able to provide information. Staff reports that patient did a little better today regarding that she drank about 700 cc of fluid and ate half a sandwich. She said to staff person that she wanted to and go to [facility]. Reviewed labs: Mildly elevated white count Lytes WNL BUN/creatinine grossly WNL LFTs WNL Plan 1. Continue with Invega Sustenna as per plan. 2. We will consider ECT if she fails to Invega. Invega Sustenna 234 mg IM 2nd shot on November 20. 3. Cogentin 0.25 mg p.o. b.i.d. to target EPS 4. We will contact the affirmed healthcare proxy to start ECT. ECT has improved her mental status. Reason for continued inpatient stay Substantial Risk for: inability to function, rapid decompensation and med/psych decompensation Time Spent With Patient Time: Total time managing care of this patient today __20__ minutes.
[2023-12-06 08:00] VITALS: BP 106/68; PULSE 80; RESP 18; TEMP 36.5; O2SAT 96
--- NOTE | 2023-12-06 09:09 | HO.POSTANES ---
Post Anesthesia Evaluation Post Anesthesia Evaluation Date of Service: 12/06/23 Anesthesia: General Mental Status: Awake Pain Control: Satisfactory Nausea/Vomiting: None Hydration: Adequate Anesthesia-Related Issues: No Anes. Related Issues
[2023-12-06 13:11] VITALS: BMI 22.3
--- NOTE | 2023-12-06 13:40 | P.PNPSI_ITS ---
Subjective Subjective Date of Service: 12/06/23 Reason For Visit: Bipolar disorder depressed with psychotic features Subjective Notes: Conditional Voluntary Interim History: The nursing staff reported the patient had being brighter in the morning but later on she became more internally preoccupied. Today in the morning she refused her medications. She stated she has not feeling well. She agreed to have ECT tomorrow morning. Mental Status Exam Mental Status Exam Patient Appearance: Unkempt Patient Orientation: Person and Situation Level of Consciousness: Awake and Appropriate Patient Behavior: Guarded and Passive Mood Description: Withdrawn Affect Description: Constricted Patient Cognition Impaired: Yes Ability to Follow Directions: Good Speech Pattern: Clear Hallucinations: None Delusions: Paranoid Ideation and Ideas of Reference Thought Process: Distracted and Slowed Thinking Thought Content: positive for [place], positive for Poverty of Content and positive for Thought Blocking Judgement: Poor Diagnostics Vital Signs (24Hr): Vital Signs - 24 hr 12/05/23 20:00 12/06/23 08:00 Temperature 96.5 F L 97.7 F Pulse Rate 81 80 Respiratory Rate 18 18 Blood Pressure 110/66 106/68 Pulse Oximetry 96 96 Oxygen Delivery Method Room Air Room Air BMI result Body Mass Index 22.3 Labs 11/11/23 15:25 11/17/23 19:20 Medications Medications Current Medications Acetaminophen (Acetaminophen 325 Mg Tablet) 650 mg PO Q6H PRN PRN Reason: Headache/Pain Mild Scale (1-3) Last Admin: 12/04/23 06:43 Dose: 650 mg Acetaminophen (Acetaminophen 325 Mg Tablet) 650 mg PO Q6H PRN PRN Reason: Fever Or Pain Al Hydroxide/Mg Hydroxide (Magnesium Hydrox/Alum Hydrox 30 Ml Oral.Susp) 30 ml PO Q6H PRN PRN Reason: Heartburn/Nausea Benztropine Mesylate (Benztropine Mesylate 0.5 Mg Tablet) 0.25 mg PO BID [facility] Last Admin: 12/06/23 09:46 Dose: Not Given Cyclobenzaprine HCl (Cyclobenzaprine Hcl 10 Mg Tablet) 10 mg PO TID PRN PRN Reason: muscle spasm Docusate Sodium (Docusate Sodium 100 Mg Capsule) 100 mg PO BID [facility] Last Admin: 12/06/23 09:46 Dose: Not Given Gabapentin (Gabapentin 300 Mg Capsule) 600 mg PO BEDTIME [facility] Last Admin: 12/05/23 21:30 Dose: Not Given Hydroxyzine HCl (Hydroxyzine Hcl 25 Mg Tablet) 25 mg PO Q6H PRN PRN Reason: Anxiety Last Admin: 11/15/23 05:57 Dose: 25 mg Ibuprofen (Ibuprofen 400 Mg Tablet) 400 mg PO TID [facility] Last Admin: 12/06/23 09:46 Dose: Not Given Loratadine (Loratadine 10 Mg Tablet) 10 mg PO DAILY PRN PRN Reason: Allergy Symptoms Magnesium Hydroxide (Milk Of Magnesia 30 Ml Oral.Susp) 30 ml PO DAILY PRN PRN Reason: Constipation Omeprazole (Omeprazole 20 Mg Capsule.Dr) 20 mg PO BID@0630,1630 [facility] Last Admin: 12/06/23 08:56 Dose: Not Given Thiamine HCl (Thiamine Hcl 100 Mg Tablet) 100 mg PO BID [facility] Last Admin: 12/06/23 09:47 Dose: Not Given Trazodone HCl (Trazodone Hcl 50 Mg Tablet) 50 mg PO BEDTIME MRX1 PRN PRN Reason: Insomnia Allergies Allergies Allergy/AdvReac Type Severity Reaction Status Date / Time bee pollen Allergy Severe Anaphylaxis Verified 01/25/22 15:16 levofloxacin [From Levaquin] Allergy Severe Itching Verified 01/25/22 15:16 enoxaparin [From Lovenox] Allergy Intermediate Rash Verified 01/25/22 15:16 Penicillins Allergy Unknown Unknown Verified 01/25/22 15:16 Seasonal Allergies Allergy Runny Nose Verified 01/25/22 15:16 venlafaxine [From Effexor] Allergy Constipatio Verified 01/25/22 15:16 n Assessment & Plan Assessment & Plan (1) Bipolar 1 disorder, depressed, severe: Status: Acute Code(s): F31.4 - Bipolar disorder, current episode depressed, severe, without psychotic features Assessment and Plan: 12/01: ECT to continue. One to one ordered for NPO times until after the treatment for added support and compliance. Plan Cardiac studies reviewed. Prior echocardiogram with LVEF 55-60% with no wall motion abnormalities and otherwise unremarkable. Myocardial perfusion imaging study shows a small area of mild intensity apical ischemia. Cardiac catheterization 2021 shows normal coronary arteries. Overall, no cardiac contraindications to proceed with ECT therapy. No clear explanation as to why she had a small troponin leak in the past after ECT. Possible coronary vasospasm from ECT? Cannot predict recurrence either. If clinically indicated, may pursue ECT therapy considering the above. At this moment the patient has enough criteria for ECT. Probably will need to rev paz her CV and filed for Section 7 and 8 since the patient is not compliant with medication grossly psychotic. But after discussing the case with her healthcare proxy and the legal team, on November 05 we are doing the paperwork to affirmed healthcare proxy. Encourage compliance with medication. On November 13 we got the information of the healthcare proxy we are going to start Invega Sustenna and discontinue Risperdal p.o. 11/16 Patient disorganized speech and behavior. Patient unable/unwilling to engage with software writer. Staff reports not eating; did drink about 480 cc of fluids; not taking medications -since has had very poor p.o. intake, will get some baseline labs if patient willing 11/17 Patient had just fallen asleep when software writer arrived and software writer decided it was in patient's best interest to remain sleeping as she remains too disorganized to engage and sleep is likely therapeutic; also she is on a one-to-one and staff able to provide information. Staff reports that patient did a little better today regarding that she drank about 700 cc of fluid and ate half a sandwich. She said to staff person that she wanted to and go to [facility]. Reviewed labs: Mildly elevated white count Lytes WNL BUN/creatinine grossly WNL LFTs WNL Plan 1. Continue with Invega Sustenna as per plan. 2. We will consider ECT if she fails to Invega. Invega Sustenna 234 mg IM 2nd shot on November 20. 3. Cogentin 0.25 mg p.o. b.i.d. to target EPS 4. We will contact the affirmed healthcare proxy to start ECT. ECT has improved her mental status. Reason for continued inpatient stay Substantial Risk for: inability to function, rapid decompensation and med/psych decompensation Time Spent With Patient Time: Total time managing care of this patient today __20__ minutes.
[2023-12-06 19:59] VITALS: BP 117/58; PULSE 72; RESP 18; TEMP 37.1; O2SAT 97
[2023-12-06 20:00] VITALS: BP 117/58; PULSE 72; RESP 18; TEMP 37.1; O2SAT 97
[2023-12-06] MEDS: traZODone HCL 50 MG TABLET PO (21:48)
[2023-12-06] MEDS: hydrOXYzine HCL 25 MG TABLET PO (21:48)
[2023-12-07] VITALS (12 sets, daily range): BP systolic 99–171; BP diastolic 51–89; PULSE 69–134; RESP 16–74; TEMP 36.3–36.8; O2SAT 95–99
--- NOTE | 2023-12-07 06:55 | PC.NURSE ---
Patient NPO at 12 am for scheduled ECT procedure, 1:[address] through the night for compliance. Left for PACU at 6 am via w/c.
--- NOTE | 2023-12-07 07:09 | P.CONAN_ITS ---
[facility] Active Problems Active Problems: All Active Problems Preoperative cardiovascular examination (Acute) Pre-op evaluation (Acute) Medical clearance for psychiatric admission (Acute) Bipolar 1 disorder, depressed, severe (Acute) Elevated troponin (Acute) Chest discomfort (Acute) S/P cardiac catheterization (Acute) Bipolar 1 disorder (Acute) Varus deformity of knee (Acute) Osteoarthritis of left knee (Acute) Anxiety (Acute) GERD (gastroesophageal reflux disease) (Acute) Insomnia (Acute) Osteopenia (Acute) Murmur, cardiac (Acute) Status post total knee replacement, left (Acute) Acute deep vein thrombosis (DVT) of left tibial vein (Chronic) Past Medical History Medical History History of skin cancer Hx of bladder problems VITO (generalized anxiety disorder) Murmur, cardiac Hx of thyroid nodule Osteopenia Hx of skin cancer, basal cell Seasonal allergies Insomnia Constipation GERD (gastroesophageal reflux disease) Anxiety History of electroconvulsive therapy Bipolar 1 disorder Family History Family History Mother Basal cell carcinoma (BCC) in situ of skin Osteoporosis Hyperlipidemia Father CAD (coronary artery disease) Alcoholism Sister Osteoporosis Depression Brother Cancer of tongue Cancer of skin Family history of problems with anesthesia: No Surgical History Surgical History Hx of colonoscopy H/O elbow surgery History of back surgery History of Problems with Anesthesia: No Social History Social History Household Members: None Housing: Apartment Are you a primary anesthesiologist and critical care to a significant other at home: No Do you presently have visiting nurse or other home services: Yes Unable to assess alcohol history related to: Unable to respond Comment: 1:1 suoervision Patient Tobacco Use Status: Former Tobacco user Tobacco use type: Cigarette Years Smoked: 30+, now vapes Smoked in Last 30 Days: No e-Cigarette/Vaping Use: Former Use Patient Interested in Nicotine Replacement: Yes Patient Given Instructions on How to Stop Smoking: Yes Date Education Initiated: 11/01/23 Second Hand Smoke Exposure: No Use of substances other than those prescribed or required for medical reasons: Yes Substance Use Type: Crack/Cocaine Last Used Substance: Unknown Currently Displaying Signs/Symptoms of Drug Intoxication Withdrawal: No Any prior treatment program specific to substance use: No Have you been hit, kicked, punched, or otherwise hurt by someone within the past year? If so, by whom?: No Do you feel safe in your current relationship?: Yes Is there a partner from a previous relationship who is making you feel unsafe now?: No Are you made to feel afraid or neglected: No Sikh Healthcare Practices: mandaen Advance Directives: No Advance Directives Information Provided: No Do you have thoughts of harming others: None Do you have a plan to hurt others: No Plan Recently lost weight without trying: Yes How much weight loss: 14-23 pounds Eating poorly because of decreased appetite: Yes Nutrition screen score: 5 Nutrition Risks: Dental problems and Poor intake 0-25% >4 days Patient : No : No Poor oral hygiene: No service: No Current occupational status: unemployed and retired 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 presenting disorganized behavior when being interviewed. Meds Allergies Allergy/AdvReac Type Severity Reaction Status Date / Time bee pollen Allergy Severe Anaphylaxis Verified 01/25/22 15:16 levofloxacin [From Levaquin] Allergy Severe Itching Verified 01/25/22 15:16 enoxaparin [From Lovenox] Allergy Intermediate Rash Verified 01/25/22 15:16 Penicillins Allergy Unknown Unknown Verified 01/25/22 15:16 Seasonal Allergies Allergy Runny Nose Verified 01/25/22 15:16 venlafaxine [From Effexor] Allergy Constipatio Verified 01/25/22 15:16 n Active Medications: Current Medications Acetaminophen (Acetaminophen 325 Mg Tablet) 650 mg PO Q6H PRN PRN Reason: Headache/Pain Mild Scale (1-3) Last Admin: 12/04/23 06:43 Dose: 650 mg Acetaminophen (Acetaminophen 325 Mg Tablet) 650 mg PO Q6H PRN PRN Reason: Fever Or Pain Al Hydroxide/Mg Hydroxide (Magnesium Hydrox/Alum Hydrox 30 Ml Oral.Susp) 30 ml PO Q6H PRN PRN Reason: Heartburn/Nausea Benztropine Mesylate (Benztropine Mesylate 0.5 Mg Tablet) 0.25 mg PO BID [facility] Last Admin: 12/06/23 21:53 Dose: Not Given Cyclobenzaprine HCl (Cyclobenzaprine Hcl 10 Mg Tablet) 10 mg PO TID PRN PRN Reason: muscle spasm Docusate Sodium (Docusate Sodium 100 Mg Capsule) 100 mg PO BID [facility] Last Admin: 12/06/23 21:53 Dose: Not Given Gabapentin (Gabapentin 300 Mg Capsule) 600 mg PO BEDTIME [facility] Last Admin: 12/06/23 21:53 Dose: Not Given Hydroxyzine HCl (Hydroxyzine Hcl 25 Mg Tablet) 25 mg PO Q6H PRN PRN Reason: Anxiety Last Admin: 12/06/23 21:48 Dose: 25 mg Ibuprofen (Ibuprofen 400 Mg Tablet) 400 mg PO TID [facility] Last Admin: 12/06/23 21:54 Dose: Not Given Loratadine (Loratadine 10 Mg Tablet) 10 mg PO DAILY PRN PRN Reason: Allergy Symptoms Magnesium Hydroxide (Milk Of Magnesia 30 Ml Oral.Susp) 30 ml PO DAILY PRN PRN Reason: Constipation Omeprazole (Omeprazole 20 Mg Capsule.Dr) 20 mg PO BID@0630,1630 [facility] Last Admin: 12/07/23 06:45 Dose: Not Given Thiamine HCl (Thiamine Hcl 100 Mg Tablet) 100 mg PO BID [facility] Last Admin: 12/06/23 21:54 Dose: Not Given Trazodone HCl (Trazodone Hcl 50 Mg Tablet) 50 mg PO BEDTIME MRX1 PRN PRN Reason: Insomnia Last Admin: 12/06/23 21:48 Dose: 50 mg Home Medications ?Medication ?Instructions ?Recorded ?Confirmed ?Last Taken ?Type omeprazole 20 mg capsule,delayed 20 mg PO BID 05/09/21 11/01/23 08/09/21 History release docusate sodium 100 mg capsule 1 cap PO BID 07/21/21 11/01/23 Unknown History loratadine 10 mg tablet (Claritin) 10 mg PO DAILY PRN Allergy Symptoms 07/21/21 11/01/23 Unknown History acetaminophen 325 mg tablet 650 mg PO Q6H PRN Fever Or Pain 09/08/21 11/01/23 10/29/23 14:05 History gabapentin 400 mg capsule 1,200 mg PO BEDTIME 01/25/22 11/01/23 10/31/23 19:37 History citalopram 20 mg tablet 20 mg PO DAILY 11/01/23 11/01/23 Unknown History cyclobenzaprine 10 mg tablet 10 mg PO TID PRN muscle spasm 11/01/23 11/01/23 Unknown History eszopiclone 3 mg tablet 3 mg PO BEDTIME 11/01/23 11/01/23 Unknown History ibuprofen 600 mg tablet 600 mg PO TID 11/01/23 11/01/23 10/31/23 14:26 History lorazepam 2 mg tablet 2 mg PO TID 11/01/23 11/01/23 11/01/23 14:00 History oxycodone 5 mg capsule 2.5 mg PO Q8H PRN Severe Pain 11/01/23 11/01/23 Unknown History (Scale Score 7-10) quetiapine 400 mg tablet 800 mg PO BEDTIME 11/01/23 11/01/23 Unknown History Exam Height,Weight and Vital Signs: Height 5 ft 6 in Weight 62.652 kg Last Vital Signs Temp 98 F 12/07/23 06:29 Pulse 69 12/07/23 06:29 Resp 18 12/07/23 06:29 BP 123/77 12/07/23 06:29 Pulse Ox 97 12/07/23 06:29 O2 Del Method Room Air 12/07/23 06:29 O2 Flow Rate 2 12/03/23 08:33 Pertinent Lab Results Pertinent Lab Results: Laboratory Tests 11/11/23 11/17/23 15:25 19:20 WBC 12.4 H RBC 4.04 L Hgb 12.4 Hct 36.0 L MCV 89.1 MCH 30.7 MCHC 34.4 RDW 12.8 Plt Count 249 MPV 9.1 L Immature Gran % (Auto) 0.6 H Neut % (Auto) 71.6 Lymph % (Auto) 13.2 L [place] % (Auto) 14.0 H Eos % (Auto) 0.3 Baso % (Auto) 0.3 Lymph # (Auto) 1.6 [place] # (Auto) 1.7 H Eos # (Auto) 0.0 Baso # (Auto) 0.0 Abs Immat Gran (auto) 0.08 H Absolute Neuts (auto) 8.9 H Absolute Nucleated RBC 0.000 Nucleated RBC % (auto) 0.0 Smear Tech's Comments VERIFIED Sodium 141 136 Potassium 3.4 3.4 Chloride 105 103 Carbon Dioxide 22 22 Anion Gap 17 14 BUN 27 H 22 H Creatinine 0.77 0.84 Estim Creat Clear Calc 67.2 61.1 Estimated GFR > 60 > 60 Random Glucose 65 166 H Calcium 9.5 9.6 Total Bilirubin 0.2 0.3 AST 23 22 ALT 29 24 Alkaline Phosphatase 106 104 Total Protein 6.5 7.1 Albumin 3.8 4.2 Airway Mallampati Class: II TM Dist: >3cm Neck ROM: Full Loose/Missing/Broken Teeth: No Heart: RRR Lungs: CTA Assessment and Plan Assessment Anesthesia Assessment: Anesthesia Plan Discussed and Chart Reviewed Final Anesthetic Review Family History of Problems with Anesthesia: No History of Problems with Anesthesia: No NPO: Yes ASA Class: II Final Preanesthetic Review: Meds/Allgs Chart Reviewed, Consent Obtained/Reviewed and Anes Risks/Benef Reviewed Patient Risk: Low Procedure Risk: Intermediate Anesthetic Plan Anesthetic Plan: GA Disposition: Standard PACU
--- NOTE | 2023-12-07 07:30 | MHC.SHP ---
Pre-Procedural Eval Section A - 24 Hr Update-Section A only Date of Service: 12/07/23 The patient is an INPATIENT: Yes Changes since office visit: Yes Changes in Medication and Yes Patient answered all questions; No Cold of Flu in the past 2 weeks and No New Medical Problems The patient has been examined within 24 hours of the surgical procedure. The History & Physical has been completed within 30 days and I have reviewed it.: Yes Section B - Complete if H&P > 30 days Chief Complaint: Bipolar disorder depressed with psychotic features Allergies: Allergies Allergy/AdvReac Type Severity Reaction Status Date / Time bee pollen Allergy Severe Anaphylaxis Verified 01/25/22 15:16 levofloxacin [From Levaquin] Allergy Severe Itching Verified 01/25/22 15:16 enoxaparin [From Lovenox] Allergy Intermediate Rash Verified 01/25/22 15:16 Penicillins Allergy Unknown Unknown Verified 01/25/22 15:16 Seasonal Allergies Allergy Runny Nose Verified 01/25/22 15:16 venlafaxine [From Effexor] Allergy Constipatio Verified 01/25/22 15:16 n Plan I have reviewed the history and physical and performed a pertinent physical examination on my patient. No changes have occurred unless specified. Time Spent With Patient Time: Total time managing care of this patient today ____ minutes.
--- NOTE | 2023-12-07 07:43 | HO.ECTPROC ---
ECT Procedure Note Diagnosis/Treatment Date of Service: 12/07/23 Diagnosis: Bipolar disorder Previous ECT Date: 12/05/23 Current Treatment Number: 3 Treatment: Series Interval Clinical Notes: pt with periods of confusion some response to ect tx less manic remains confused tx as per last tx post op agiation given ativan 1 mg not helpful then [id number] more effective monitor for post op delerium consider 2 x wk Time: Total time managing care of this patient today ____ minutes. ECT Settings Device: THYMATRON DGx Electrode Placement: Bifrontal Program/Pulse Width: 0.50 Energy Percent: 100 Medications Administration General Anesthetic: Etomidate (15) Muscle Relaxant: Succinylcholine (100) Ancillary Medications Analgesics: Torodol - Pre ECT Anti-emetics: Zofran - Pre ECT Miscillaneous Medications: Propofol and Haldol Airway Management Airway Management: Bag Mask Ventilation Treatment Recommendations Notes: consider change to rul if delerium no cardiac issues noted
[2023-12-07] MEDS: Haloperidol Lactate 5 MG/ML VIAL 2.5 MG IVPUSH (07:58)
[2023-12-07] MEDS: LORazepam 2 MG/ML VIAL IVPUSH (08:22)
[2023-12-07] MEDS: Benztropine Mesylate 0.5 MG TABLET 0.25 MG PO ×2 (09:13→21:01)
[2023-12-07] MEDS: Docusate Sodium 100 MG CAPSULE PO ×2 (09:13→21:02)
[2023-12-07] MEDS: Ibuprofen 400 MG TABLET PO ×2 (09:13→21:03)
[2023-12-07] MEDS: Thiamine HCL 100 MG TABLET PO ×2 (09:14→21:00)
--- NOTE | 2023-12-07 09:33 | PC.NURSE ---
Patient transferred back to the unit around 9am in a stable condition. Alert and oriented to person and place. Denies pain, denies nausea, some dizziness. Provided education on safety. VS: 98.2-71, 137/66, 97% on RA. Will continue to monitor.
--- NOTE | 2023-12-07 14:32 | P.PNPSI_ITS ---
Subjective Subjective Date of Service: 12/07/23 Reason For Visit: Bipolar disorder depressed with psychotic features Subjective Notes: Conditional Voluntary Interim History: The nursing staff reported the patient was refusing medications, internally preoccupied and psychotic and today she went to ECT early in the morning. In the morning after ECT she was slightly sedated but later awake and alert. She states that she has feeling a little better. She is aware that she will have ECT Sunday. Mental Status Exam Mental Status Exam Patient Appearance: Well Grooomed Patient Orientation: Person and Situation Level of Consciousness: Awake Patient Behavior: Appropriate and Cooperative Mood Description: Calm Affect Description: Constricted Patient Cognition Impaired: Yes Ability to Follow Directions: Good Speech Pattern: Clear Hallucinations: Auditory Delusions: Ideas of Reference Thought Process: Distracted and Slowed Thinking Thought Content: positive for [place] and positive for Poverty of Content Judgement: Poor Diagnostics Vital Signs (24Hr): Vital Signs - 24 hr 12/06/23 19:59 12/06/23 20:00 12/07/23 05:41 Temperature 98.7 F 98.7 F 97.3 F Pulse Rate 72 72 78 Respiratory Rate 18 18 16 Blood Pressure 117/58 L 117/58 L 136/81 Pulse Oximetry 97 97 96 Oxygen Delivery Method Room Air Room Air Room Air Oxygen Flow Rate 12/07/23 05:45 12/07/23 06:29 12/07/23 07:45 Temperature 97.3 F 98 F 97.6 F Pulse Rate 78 69 134 H Respiratory Rate 16 18 16 Blood Pressure 136/81 123/77 171/89 H Pulse Oximetry 96 97 95 Oxygen Delivery Method Room Air Nasal Cannula Oxygen Flow Rate 2 12/07/23 07:50 12/07/23 07:55 12/07/23 08:00 Temperature Pulse Rate 92 89 89 Respiratory Rate 20 20 20 Blood Pressure 142/79 H 137/75 135/77 Pulse Oximetry 96 96 96 Oxygen Delivery Method Nasal Cannula Nasal Cannula Nasal Cannula Oxygen Flow Rate 2 2 2 12/07/23 08:15 12/07/23 08:30 12/07/23 09:00 Temperature 97.6 F 98.2 F Pulse Rate 81 71 71 Respiratory Rate 16 16 18 Blood Pressure 130/69 118/75 137/66 Pulse Oximetry 97 99 97 Oxygen Delivery Method Nasal Cannula Room Air Room Air Oxygen Flow Rate 2 12/07/23 09:24 Temperature 98.2 F Pulse Rate 71 Respiratory Rate 18 Blood Pressure 137/66 Pulse Oximetry 97 Oxygen Delivery Method Oxygen Flow Rate BMI result Body Mass Index 22.3 Labs 11/11/23 15:25 11/17/23 19:20 Medications Medications Current Medications Acetaminophen (Acetaminophen 325 Mg Tablet) 650 mg PO Q6H PRN PRN Reason: Headache/Pain Mild Scale (1-3) Last Admin: 12/04/23 06:43 Dose: 650 mg Al Hydroxide/Mg Hydroxide (Magnesium Hydrox/Alum Hydrox 30 Ml Oral.Susp) 30 ml PO Q6H PRN PRN Reason: Heartburn/Nausea Benztropine Mesylate (Benztropine Mesylate 0.5 Mg Tablet) 0.25 mg PO BID [facility] Last Admin: 12/07/23 09:13 Dose: 0.25 mg Cyclobenzaprine HCl (Cyclobenzaprine Hcl 10 Mg Tablet) 10 mg PO TID PRN PRN Reason: muscle spasm Docusate Sodium (Docusate Sodium 100 Mg Capsule) 100 mg PO BID [facility] Last Admin: 12/07/23 09:13 Dose: 100 mg Gabapentin (Gabapentin 300 Mg Capsule) 600 mg PO BEDTIME [facility] Last Admin: 12/06/23 21:53 Dose: Not Given Hydroxyzine HCl (Hydroxyzine Hcl 25 Mg Tablet) 25 mg PO Q6H PRN PRN Reason: Anxiety Last Admin: 12/06/23 21:48 Dose: 25 mg Ibuprofen (Ibuprofen 400 Mg Tablet) 400 mg PO TID [facility] Last Admin: 12/07/23 09:13 Dose: 400 mg Loratadine (Loratadine 10 Mg Tablet) 10 mg PO DAILY PRN PRN Reason: Allergy Symptoms Magnesium Hydroxide (Milk Of Magnesia 30 Ml Oral.Susp) 30 ml PO DAILY PRN PRN Reason: Constipation Omeprazole (Omeprazole 20 Mg Capsule.Dr) 20 mg PO BID@0630,1630 [facility] Last Admin: 12/07/23 06:45 Dose: Not Given Thiamine HCl (Thiamine Hcl 100 Mg Tablet) 100 mg PO BID [facility] Last Admin: 12/07/23 09:14 Dose: 100 mg Trazodone HCl (Trazodone Hcl 50 Mg Tablet) 50 mg PO BEDTIME MRX1 PRN PRN Reason: Insomnia Last Admin: 12/06/23 21:48 Dose: 50 mg Allergies Allergies Allergy/AdvReac Type Severity Reaction Status Date / Time bee pollen Allergy Severe Anaphylaxis Verified 01/25/22 15:16 levofloxacin [From Levaquin] Allergy Severe Itching Verified 01/25/22 15:16 enoxaparin [From Lovenox] Allergy Intermediate Rash Verified 01/25/22 15:16 Penicillins Allergy Unknown Unknown Verified 01/25/22 15:16 Seasonal Allergies Allergy Runny Nose Verified 01/25/22 15:16 venlafaxine [From Effexor] Allergy Constipatio Verified 01/25/22 15:16 n Assessment & Plan Assessment & Plan (1) Bipolar 1 disorder, depressed, severe: Status: Acute Code(s): F31.4 - Bipolar disorder, current episode depressed, severe, without psychotic features Assessment and Plan: 12/01: ECT to continue. One to one ordered for NPO times until after the treatment for added support and compliance. Plan Cardiac studies reviewed. Prior echocardiogram with LVEF 55-60% with no wall motion abnormalities and otherwise unremarkable. Myocardial perfusion imaging study shows a small area of mild intensity apical ischemia. Cardiac catheterization 2021 shows normal coronary arteries. Overall, no cardiac contraindications to proceed with ECT therapy. No clear explanation as to why she had a small troponin leak in the past after ECT. Possible coronary vasospasm from ECT? Cannot predict recurrence either. If clinically indicated, may pursue ECT therapy considering the above. At this moment the patient has enough criteria for ECT. Probably will need to rev paz her CV and filed for Section 7 and 8 since the patient is not compliant with medication grossly psychotic. But after discussing the case with her healthcare proxy and the legal team, on November 05 we are doing the paperwork to affirmed healthcare proxy. Encourage compliance with medication. On November 13 we got the information of the healthcare proxy we are going to start Invega Sustenna and discontinue Risperdal p.o. 11/16 Patient disorganized speech and behavior. Patient unable/unwilling to engage with keno writer/runner. Staff reports not eating; did drink about 480 cc of fluids; not taking medications -since has had very poor p.o. intake, will get some baseline labs if patient willing 11/17 Patient had just fallen asleep when keno writer/runner arrived and keno writer/runner decided it was in patient's best interest to remain sleeping as she remains too disorganized to engage and sleep is likely therapeutic; also she is on a one-to-one and staff able to provide information. Staff reports that patient did a little better today regarding that she drank about 700 cc of fluid and ate half a sandwich. She said to staff person that she wanted to and go to [facility]. Reviewed labs: Mildly elevated white count Lytes WNL BUN/creatinine grossly WNL LFTs WNL Plan 1. Continue with Invega Sustenna as per plan. 2. We will consider ECT if she fails to Invega. Invega Sustenna 234 mg IM 2nd shot on November 20. 3. Cogentin 0.25 mg p.o. b.i.d. to target EPS 4. We will contact the affirmed healthcare proxy to start ECT. ECT has improved her mental status. Reason for continued inpatient stay Substantial Risk for: inability to function, rapid decompensation and med/psych decompensation Time Spent With Patient Time: Total time managing care of this patient today __20__ minutes.
[2023-12-07] MEDS: Omeprazole 20 MG CAPSULE.DR PO (15:32)
[2023-12-07] MEDS: traZODone HCL 50 MG TABLET PO (21:01)
[2023-12-07] MEDS: Gabapentin 300 MG CAPSULE 600 MG PO (21:01)
--- NOTE | 2023-12-08 10:52 | P.PNPSI_ITS ---
Subjective Subjective Date of Service: 12/08/23 Reason For Visit: Bipolar disorder depressed with psychotic features Interim History: sleeping, rousable to loud voice. calm, cooperative, pleasant. requests she be given her medications, no other requests or complaints. per staff, when they went in to offer pt her meds after pt spoke with this script writer, pt then refused her medications. sleeping late this morning, benefiting from ECT. Mental Status Exam Mental Status Exam Patient Appearance: Well Grooomed Patient Orientation: Person and Situation Level of Consciousness: Awake Patient Behavior: Appropriate and Cooperative Mood Description: Calm Affect Description: Constricted Patient Cognition Impaired: Yes Ability to Follow Directions: Good Speech Pattern: Clear Hallucinations: Auditory Delusions: Ideas of Reference Thought Process: Distracted and Slowed Thinking Thought Content: positive for [place] and positive for Poverty of Content Judgement: Poor Diagnostics Vital Signs (24Hr): Vital Signs - 24 hr 12/07/23 20:00 Temperature 97.5 F Pulse Rate 74 Respiratory Rate 74 H Blood Pressure 99/51 L Pulse Oximetry 95 Oxygen Delivery Method Room Air BMI result Body Mass Index 22.3 Labs 11/11/23 15:25 11/17/23 19:20 Medications Medications Current Medications Acetaminophen (Acetaminophen 325 Mg Tablet) 650 mg PO Q6H PRN PRN Reason: Headache/Pain Mild Scale (1-3) Last Admin: 12/04/23 06:43 Dose: 650 mg Al Hydroxide/Mg Hydroxide (Magnesium Hydrox/Alum Hydrox 30 Ml Oral.Susp) 30 ml PO Q6H PRN PRN Reason: Heartburn/Nausea Benztropine Mesylate (Benztropine Mesylate 0.5 Mg Tablet) 0.25 mg PO BID [facility] Last Admin: 12/08/23 10:28 Dose: Not Given Cyclobenzaprine HCl (Cyclobenzaprine Hcl 10 Mg Tablet) 10 mg PO TID PRN PRN Reason: muscle spasm Docusate Sodium (Docusate Sodium 100 Mg Capsule) 100 mg PO BID [facility] Last Admin: 12/08/23 10:28 Dose: Not Given Gabapentin (Gabapentin 300 Mg Capsule) 600 mg PO BEDTIME [facility] Last Admin: 12/07/23 21:01 Dose: 600 mg Hydroxyzine HCl (Hydroxyzine Hcl 25 Mg Tablet) 25 mg PO Q6H PRN PRN Reason: Anxiety Last Admin: 12/06/23 21:48 Dose: 25 mg Ibuprofen (Ibuprofen 400 Mg Tablet) 400 mg PO TID [facility] Last Admin: 12/08/23 10:28 Dose: Not Given Loratadine (Loratadine 10 Mg Tablet) 10 mg PO DAILY PRN PRN Reason: Allergy Symptoms Magnesium Hydroxide (Milk Of Magnesia 30 Ml Oral.Susp) 30 ml PO DAILY PRN PRN Reason: Constipation Omeprazole (Omeprazole 20 Mg Capsule.Dr) 20 mg PO BID@0630,1630 [facility] Last Admin: 12/08/23 06:42 Dose: Not Given Thiamine HCl (Thiamine Hcl 100 Mg Tablet) 100 mg PO BID [facility] Last Admin: 12/08/23 10:28 Dose: Not Given Trazodone HCl (Trazodone Hcl 50 Mg Tablet) 50 mg PO BEDTIME MRX1 PRN PRN Reason: Insomnia Last Admin: 12/07/23 21:01 Dose: 50 mg Allergies Allergies Allergy/AdvReac Type Severity Reaction Status Date / Time bee pollen Allergy Severe Anaphylaxis Verified 01/25/22 15:16 levofloxacin [From Levaquin] Allergy Severe Itching Verified 01/25/22 15:16 enoxaparin [From Lovenox] Allergy Intermediate Rash Verified 01/25/22 15:16 Penicillins Allergy Unknown Unknown Verified 01/25/22 15:16 Seasonal Allergies Allergy Runny Nose Verified 01/25/22 15:16 venlafaxine [From Effexor] Allergy Constipatio Verified 01/25/22 15:16 n Assessment & Plan Assessment & Plan (1) Bipolar 1 disorder, depressed, severe: Status: Acute Code(s): F31.4 - Bipolar disorder, current episode depressed, severe, without psychotic features Assessment and Plan: 12/01: ECT to continue. One to one ordered for NPO times until after the treatment for added support and compliance. Plan Cardiac studies reviewed. Prior echocardiogram with LVEF 55-60% with no wall motion abnormalities and otherwise unremarkable. Myocardial perfusion imaging study shows a small area of mild intensity apical ischemia. Cardiac catheterization 2021 shows normal coronary arteries. Overall, no cardiac contraindications to proceed with ECT therapy. No clear explanation as to why she had a small troponin leak in the past after ECT. Possible coronary vasospasm from ECT? Cannot predict recurrence either. If clinically indicated, may pursue ECT therapy considering the above. At this moment the patient has enough criteria for ECT. Probably will need to rev paz her CV and filed for Section 7 and 8 since the patient is not compliant with medication grossly psychotic. But after discussing the case with her healthcare proxy and the legal team, on November 05 we are doing the paperwork to affirmed healthcare proxy. Encourage compliance with medication. On November 13 we got the information of the healthcare proxy we are going to start Invega Sustenna and discontinue Risperdal p.o. 11/16 Patient disorganized speech and behavior. Patient unable/unwilling to engage with script writer. Staff reports not eating; did drink about 480 cc of fluids; not taking medications -since has had very poor p.o. intake, will get some baseline labs if patient willing 11/17 Patient had just fallen asleep when script writer arrived and script writer decided it was in patient's best interest to remain sleeping as she remains too disorganized to engage and sleep is likely therapeutic; also she is on a one-to-one and staff able to provide information. Staff reports that patient did a little better today regarding that she drank about 700 cc of fluid and ate half a sandwich. She said to staff person that she wanted to and go to [facility]. Reviewed labs: Mildly elevated white count Lytes WNL BUN/creatinine grossly WNL LFTs WNL Plan 1. Continue with Invega Sustenna as per plan. 2. We will consider ECT if she fails to Invega. Invega Sustenna 234 mg IM 2nd shot on November 20. 3. Cogentin 0.25 mg p.o. b.i.d. to target EPS 4. We will contact the affirmed healthcare proxy to start ECT. ECT has improved her mental status. Reason for continued inpatient stay Substantial Risk for: inability to function and rapid decompensation Time Spent With Patient Time: Total time managing care of this patient today ____ minutes.
[2023-12-08] MEDS: LORazepam 1 MG TABLET PO (15:09)
[2023-12-08] MEDS: Omeprazole 20 MG CAPSULE.DR PO (16:29)
[2023-12-08 20:00] VITALS: BP 110/60; PULSE 84; RESP 16; TEMP 37; O2SAT 96
[2023-12-08] MEDS: Ibuprofen 400 MG TABLET PO (20:14)
[2023-12-08] MEDS: Benztropine Mesylate 0.5 MG TABLET 0.25 MG PO (20:15)
[2023-12-08] MEDS: Thiamine HCL 100 MG TABLET PO (20:15)
[2023-12-08] MEDS: Gabapentin 300 MG CAPSULE 600 MG PO (20:15)
[2023-12-08] MEDS: Docusate Sodium 100 MG CAPSULE PO (20:16)
[2023-12-09] MEDS: Omeprazole 20 MG CAPSULE.DR PO ×2 (05:51→16:29)
[2023-12-09 08:00] VITALS: BP 115/69; PULSE 79; RESP 18; TEMP 36.8; O2SAT 97
[2023-12-09] MEDS: Benztropine Mesylate 0.5 MG TABLET 0.25 MG PO ×2 (08:41→20:10)
[2023-12-09] MEDS: Docusate Sodium 100 MG CAPSULE PO (08:41)
--- NOTE | 2023-12-09 12:06 | P.PNPSI_ITS ---
Subjective Subjective Date of Service: 12/09/23 Reason For Visit: Bipolar disorder depressed with psychotic features Interim History: calm, cooperative. asking about discharge. no change in presentation. per staff, no behavioral concerns. Mental Status Exam Mental Status Exam Patient Appearance: Well Grooomed Patient Orientation: Person and Situation Level of Consciousness: Awake Patient Behavior: Appropriate and Cooperative Mood Description: Calm Affect Description: Constricted Patient Cognition Impaired: Yes Ability to Follow Directions: Good Speech Pattern: Clear Hallucinations: Auditory Delusions: Ideas of Reference Thought Process: Distracted and Slowed Thinking Thought Content: positive for [place] and positive for Poverty of Content Judgement: Poor Diagnostics Vital Signs (24Hr): Vital Signs - 24 hr 12/08/23 20:00 12/09/23 08:00 Temperature 98.6 F 98.2 F Pulse Rate 84 79 Respiratory Rate 16 18 Blood Pressure 110/60 115/69 Pulse Oximetry 96 97 Oxygen Delivery Method Room Air Room Air BMI result Body Mass Index 22.3 Labs 11/11/23 15:25 11/17/23 19:20 Medications Medications Current Medications Acetaminophen (Acetaminophen 325 Mg Tablet) 650 mg PO Q6H PRN PRN Reason: Headache/Pain Mild Scale (1-3) Last Admin: 12/04/23 06:43 Dose: 650 mg Al Hydroxide/Mg Hydroxide (Magnesium Hydrox/Alum Hydrox 30 Ml Oral.Susp) 30 ml PO Q6H PRN PRN Reason: Heartburn/Nausea Benztropine Mesylate (Benztropine Mesylate 0.5 Mg Tablet) 0.25 mg PO BID [facility] Last Admin: 12/09/23 08:41 Dose: 0.25 mg Cyclobenzaprine HCl (Cyclobenzaprine Hcl 10 Mg Tablet) 10 mg PO TID PRN PRN Reason: muscle spasm Docusate Sodium (Docusate Sodium 100 Mg Capsule) 100 mg PO BID [facility] Last Admin: 12/09/23 08:41 Dose: 100 mg Gabapentin (Gabapentin 300 Mg Capsule) 600 mg PO BEDTIME [facility] Last Admin: 12/08/23 20:15 Dose: 600 mg Hydroxyzine HCl (Hydroxyzine Hcl 25 Mg Tablet) 25 mg PO Q6H PRN PRN Reason: Anxiety Last Admin: 12/06/23 21:48 Dose: 25 mg Ibuprofen (Ibuprofen 400 Mg Tablet) 400 mg PO TID [facility] Last Admin: 12/09/23 08:43 Dose: Not Given Loratadine (Loratadine 10 Mg Tablet) 10 mg PO DAILY PRN PRN Reason: Allergy Symptoms Lorazepam (Lorazepam 1 Mg Tablet) 1 mg PO DAILY PRN PRN Reason: severe anxiety Magnesium Hydroxide (Milk Of Magnesia 30 Ml Oral.Susp) 30 ml PO DAILY PRN PRN Reason: Constipation Omeprazole (Omeprazole 20 Mg Capsule.Dr) 20 mg PO BID@0630,1630 [facility] Last Admin: 12/09/23 05:51 Dose: 20 mg Thiamine HCl (Thiamine Hcl 100 Mg Tablet) 100 mg PO BID [facility] Last Admin: 12/09/23 08:43 Dose: Not Given Trazodone HCl (Trazodone Hcl 50 Mg Tablet) 50 mg PO BEDTIME MRX1 PRN PRN Reason: Insomnia Last Admin: 12/07/23 21:01 Dose: 50 mg Allergies Allergies Allergy/AdvReac Type Severity Reaction Status Date / Time bee pollen Allergy Severe Anaphylaxis Verified 01/25/22 15:16 levofloxacin [From Levaquin] Allergy Severe Itching Verified 01/25/22 15:16 enoxaparin [From Lovenox] Allergy Intermediate Rash Verified 01/25/22 15:16 Penicillins Allergy Unknown Unknown Verified 01/25/22 15:16 Seasonal Allergies Allergy Runny Nose Verified 01/25/22 15:16 venlafaxine [From Effexor] Allergy Constipatio Verified 01/25/22 15:16 n Assessment & Plan Assessment & Plan (1) Bipolar 1 disorder, depressed, severe: Status: Acute Code(s): F31.4 - Bipolar disorder, current episode depressed, severe, without psychotic features Assessment and Plan: 12/01: ECT to continue. One to one ordered for NPO times until after the treatment for added support and compliance. Plan Cardiac studies reviewed. Prior echocardiogram with LVEF 55-60% with no wall motion abnormalities and otherwise unremarkable. Myocardial perfusion imaging study shows a small area of mild intensity apical ischemia. Cardiac catheterization 2021 shows normal coronary arteries. Overall, no cardiac contraindications to proceed with ECT therapy. No clear explanation as to why she had a small troponin leak in the past after ECT. Possible coronary vasospasm from ECT? Cannot predict recurrence either. If clinically indicated, may pursue ECT therapy considering the above. At this moment the patient has enough criteria for ECT. Probably will need to rev paz her CV and filed for Section 7 and 8 since the patient is not compliant with medication grossly psychotic. But after discussing the case with her healthcare proxy and the legal team, on November 05 we are doing the paperwork to affirmed healthcare proxy. Encourage compliance with medication. On November 13 we got the information of the healthcare proxy we are going to start Invega Sustenna and discontinue Risperdal p.o. 11/16 Patient disorganized speech and behavior. Patient unable/unwilling to engage with real estate underwriter. Staff reports not eating; did drink about 480 cc of fluids; not taking medications -since has had very poor p.o. intake, will get some baseline labs if patient willing 11/17 Patient had just fallen asleep when real estate underwriter arrived and real estate underwriter decided it was in patient's best interest to remain sleeping as she remains too disorganized to engage and sleep is likely therapeutic; also she is on a one-to-one and staff able to provide information. Staff reports that patient did a little better today regarding that she drank about 700 cc of fluid and ate half a sandwich. She said to staff person that she wanted to and go to [facility]. Reviewed labs: Mildly elevated white count Lytes WNL BUN/creatinine grossly WNL LFTs WNL Plan 1. Continue with Invega Sustenna as per plan. 2. We will consider ECT if she fails to Invega. Invega Sustenna 234 mg IM 2nd shot on November 20. 3. Cogentin 0.25 mg p.o. b.i.d. to target EPS 4. We will contact the affirmed healthcare proxy to start ECT. ECT has improved her mental status. Reason for continued inpatient stay Substantial Risk for: inability to function Time Spent With Patient Time: Total time managing care of this patient today ____ minutes.
[2023-12-09 20:00] VITALS: RESP 16
[2023-12-09] MEDS: Gabapentin 300 MG CAPSULE 600 MG PO (20:09)
[2023-12-09] MEDS: traZODone HCL 50 MG TABLET PO ×2 (20:11→22:30)
[2023-12-09] MEDS: hydrOXYzine HCL 25 MG TABLET PO (22:30)
[2023-12-10] VITALS (11 sets, daily range): BP systolic 109–162; BP diastolic 63–90; PULSE 67–90; RESP 14–20; TEMP 36.3–37; O2SAT 94–97
--- NOTE | 2023-12-10 06:55 | MHC.SHP ---
Pre-Procedural Eval Section A - 24 Hr Update-Section A only Date of Service: 12/10/23 The patient is an INPATIENT: Yes Changes since office visit: No Cold of Flu in the past 2 weeks, No New Medical Problems, No Changes in Medication and No Patient answered all questions The patient has been examined within 24 hours of the surgical procedure. The History & Physical has been completed within 30 days and I have reviewed it.: Yes Section B - Complete if H&P > 30 days Chief Complaint: Bipolar disorder depressed with psychotic features Allergies: Allergies Allergy/AdvReac Type Severity Reaction Status Date / Time bee pollen Allergy Severe Anaphylaxis Verified 01/25/22 15:16 levofloxacin [From Levaquin] Allergy Severe Itching Verified 01/25/22 15:16 enoxaparin [From Lovenox] Allergy Intermediate Rash Verified 01/25/22 15:16 Penicillins Allergy Unknown Unknown Verified 01/25/22 15:16 Seasonal Allergies Allergy Runny Nose Verified 01/25/22 15:16 venlafaxine [From Effexor] Allergy Constipatio Verified 01/25/22 15:16 n Plan I have reviewed the history and physical and performed a pertinent physical examination on my patient. No changes have occurred unless specified. Time Spent With Patient Time: Total time managing care of this patient today ____ minutes.
--- NOTE | 2023-12-10 06:57 | P.CONAN_ITS ---
[facility] Active Problems Active Problems: All Active Problems Preoperative cardiovascular examination (Acute) Pre-op evaluation (Acute) Medical clearance for psychiatric admission (Acute) Bipolar 1 disorder, depressed, severe (Acute) Elevated troponin (Acute) Chest discomfort (Acute) S/P cardiac catheterization (Acute) Bipolar 1 disorder (Acute) Varus deformity of knee (Acute) Osteoarthritis of left knee (Acute) Anxiety (Acute) GERD (gastroesophageal reflux disease) (Acute) Insomnia (Acute) Osteopenia (Acute) Murmur, cardiac (Acute) Status post total knee replacement, left (Acute) Acute deep vein thrombosis (DVT) of left tibial vein (Chronic) Past Medical History Medical History History of skin cancer Hx of bladder problems VITO (generalized anxiety disorder) Murmur, cardiac Hx of thyroid nodule Osteopenia Hx of skin cancer, basal cell Seasonal allergies Insomnia Constipation GERD (gastroesophageal reflux disease) Anxiety History of electroconvulsive therapy Bipolar 1 disorder Family History Family History Mother Basal cell carcinoma (BCC) in situ of skin Osteoporosis Hyperlipidemia Father CAD (coronary artery disease) Alcoholism Sister Osteoporosis Depression Brother Cancer of tongue Cancer of skin Family history of problems with anesthesia: No Surgical History Surgical History Hx of colonoscopy H/O elbow surgery History of back surgery History of Problems with Anesthesia: No Social History Social History Household Members: None Housing: Apartment Are you a primary family day care provider to a significant other at home: No Do you presently have visiting nurse or other home services: Yes Unable to assess alcohol history related to: Unable to respond Comment: 1:1 suoervision Patient Tobacco Use Status: Former Tobacco user Tobacco use type: Cigarette Years Smoked: 30+, now vapes Smoked in Last 30 Days: No e-Cigarette/Vaping Use: Former Use Patient Interested in Nicotine Replacement: Yes Patient Given Instructions on How to Stop Smoking: Yes Date Education Initiated: 11/01/23 Second Hand Smoke Exposure: No Use of substances other than those prescribed or required for medical reasons: Yes Substance Use Type: Crack/Cocaine Last Used Substance: Unknown Currently Displaying Signs/Symptoms of Drug Intoxication Withdrawal: No Any prior treatment program specific to substance use: No Have you been hit, kicked, punched, or otherwise hurt by someone within the past year? 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 presenting disorganized behavior when being interviewed. Meds Allergies Allergy/AdvReac Type Severity Reaction Status Date / Time bee pollen Allergy Severe Anaphylaxis Verified 01/25/22 15:16 levofloxacin [From Levaquin] Allergy Severe Itching Verified 01/25/22 15:16 enoxaparin [From Lovenox] Allergy Intermediate Rash Verified 01/25/22 15:16 Penicillins Allergy Unknown Unknown Verified 01/25/22 15:16 Seasonal Allergies Allergy Runny Nose Verified 01/25/22 15:16 venlafaxine [From Effexor] Allergy Constipatio Verified 01/25/22 15:16 n Active Medications: Current Medications Acetaminophen (Acetaminophen 325 Mg Tablet) 650 mg PO Q6H PRN PRN Reason: Headache/Pain Mild Scale (1-3) Last Admin: 12/04/23 06:43 Dose: 650 mg Al Hydroxide/Mg Hydroxide (Magnesium Hydrox/Alum Hydrox 30 Ml Oral.Susp) 30 ml PO Q6H PRN PRN Reason: Heartburn/Nausea Benztropine Mesylate (Benztropine Mesylate 0.5 Mg Tablet) 0.25 mg PO BID [facility] Last Admin: 12/09/23 20:10 Dose: 0.25 mg Cyclobenzaprine HCl (Cyclobenzaprine Hcl 10 Mg Tablet) 10 mg PO TID PRN PRN Reason: muscle spasm Docusate Sodium (Docusate Sodium 100 Mg Capsule) 100 mg PO BID [facility] Last Admin: 12/10/23 00:30 Dose: Not Given Gabapentin (Gabapentin 300 Mg Capsule) 600 mg PO BEDTIME [facility] Last Admin: 12/09/23 20:09 Dose: 600 mg Hydroxyzine HCl (Hydroxyzine Hcl 25 Mg Tablet) 25 mg PO Q6H PRN PRN Reason: Anxiety Last Admin: 12/09/23 22:30 Dose: 25 mg Ibuprofen (Ibuprofen 400 Mg Tablet) 400 mg PO TID [facility] Last Admin: 12/09/23 20:14 Dose: Not Given Loratadine (Loratadine 10 Mg Tablet) 10 mg PO DAILY PRN PRN Reason: Allergy Symptoms Lorazepam (Lorazepam 1 Mg Tablet) 1 mg PO DAILY PRN PRN Reason: severe anxiety Magnesium Hydroxide (Milk Of Magnesia 30 Ml Oral.Susp) 30 ml PO DAILY PRN PRN Reason: Constipation Omeprazole (Omeprazole 20 Mg Capsule.Dr) 20 mg PO BID@0630,1630 [facility] Last Admin: 12/10/23 04:43 Dose: Not Given Thiamine HCl (Thiamine Hcl 100 Mg Tablet) 100 mg PO BID [facility] Last Admin: 12/09/23 20:14 Dose: Not Given Trazodone HCl (Trazodone Hcl 50 Mg Tablet) 50 mg PO BEDTIME MRX1 PRN PRN Reason: Insomnia Last Admin: 12/09/23 22:30 Dose: 50 mg Home Medications ?Medication ?Instructions ?Recorded ?Confirmed ?Last Taken ?Type omeprazole 20 mg capsule,delayed 20 mg PO BID 05/09/21 11/01/23 08/09/21 History release docusate sodium 100 mg capsule 1 cap PO BID 07/21/21 11/01/23 Unknown History loratadine 10 mg tablet (Claritin) 10 mg PO DAILY PRN Allergy Symptoms 07/21/21 11/01/23 Unknown History acetaminophen 325 mg tablet 650 mg PO Q6H PRN Fever Or Pain 09/08/21 11/01/23 10/29/23 14:05 History gabapentin 400 mg capsule 1,200 mg PO BEDTIME 01/25/22 11/01/23 10/31/23 19:37 History citalopram 20 mg tablet 20 mg PO DAILY 11/01/23 11/01/23 Unknown History cyclobenzaprine 10 mg tablet 10 mg PO TID PRN muscle spasm 05/02/24 05/02/24 Unknown History eszopiclone 3 mg tablet 3 mg PO BEDTIME 11/01/23 11/01/23 Unknown History ibuprofen 600 mg tablet 600 mg PO TID 11/01/23 11/01/23 10/31/23 14:26 History lorazepam 2 mg tablet 2 mg PO TID 11/01/23 11/01/23 11/01/23 14:00 History oxycodone 5 mg capsule 2.5 mg PO Q8H PRN Severe Pain 11/01/23 11/01/23 Unknown History (Scale Score 7-10) quetiapine 400 mg tablet 800 mg PO BEDTIME 11/01/23 11/01/23 Unknown History Exam Height,Weight and Vital Signs: Height 5 ft 6 in Weight 62.652 kg Last Vital Signs Temp 97.4 F 12/10/23 06:42 Pulse 67 12/10/23 06:42 Resp 16 12/10/23 06:42 BP 109/71 12/10/23 06:42 Pulse Ox 97 12/10/23 06:42 O2 Del Method Room Air 12/10/23 06:42 O2 Flow Rate 2 12/07/23 08:15 Pertinent Lab Results Pertinent Lab Results: Laboratory Tests 11/11/23 11/17/23 15:25 19:20 WBC 12.4 H RBC 4.04 L Hgb 12.4 Hct 36.0 L MCV 89.1 MCH 30.7 MCHC 34.4 RDW 12.8 Plt Count 249 MPV 9.1 L Immature Gran % (Auto) 0.6 H Neut % (Auto) 71.6 Lymph % (Auto) 13.2 L [place] % (Auto) 14.0 H Eos % (Auto) 0.3 Baso % (Auto) 0.3 Lymph # (Auto) 1.6 [place] # (Auto) 1.7 H Eos # (Auto) 0.0 Baso # (Auto) 0.0 Abs Immat Gran (auto) 0.08 H Absolute Neuts (auto) 8.9 H Absolute Nucleated RBC 0.000 Nucleated RBC % (auto) 0.0 Smear Tech's Comments VERIFIED Sodium 141 136 Potassium 3.4 3.4 Chloride 105 103 Carbon Dioxide 22 22 Anion Gap 17 14 BUN 27 H 22 H Creatinine 0.77 0.84 Estim Creat Clear Calc 67.2 61.1 Estimated GFR > 60 > 60 Random Glucose 65 166 H Calcium 9.5 9.6 Total Bilirubin 0.2 0.3 AST 23 22 ALT 29 24 Alkaline Phosphatase 106 104 Total Protein 6.5 7.1 Albumin 3.8 4.2 Airway Mallampati Class: II TM Dist: >3cm Neck ROM: Full Heart: rrr Lungs: cta Assessment and Plan Final Anesthetic Review Family History of Problems with Anesthesia: No History of Problems with Anesthesia: No NPO: Yes ASA Class: III Final Preanesthetic Review: No Changes in Pt Med Stat, Meds/Allgs Chart Reviewed, Consent Obtained/Reviewed and Anes Risks/Benef Reviewed Patient Risk: Intermediate Procedure Risk: Intermediate Anesthetic Plan Anesthetic Plan: GA Disposition: Standard PACU
[2023-12-10] MEDS: Lactated Ringers 1,000 ML 50 ML IVCONT (07:00)
--- NOTE | 2023-12-10 07:50 | HO.ECTPROC ---
ECT Procedure Note Diagnosis/Treatment Date of Service: 12/10/23 Diagnosis: Bipolar disorder and Catatonia Previous ECT Date: 12/07/23 Current Treatment Number: 4 Treatment: Series Interval Clinical Notes: The patient was more awake, talkative with some dysphoria but resolution of catatonia. She denies side effects with the previous ECT but she was agitated that requiered Haldol and Ativan. ECT done without complications, we used Propofol after the procedure to avoid agitation post ECT. She got a little agitated and we ordered Haldol 2.5 mg and Ativan 2 IVP with resolution of the agitation. Later, woke up well. Time: Total time managing care of this patient today _30___ minutes. ECT Settings Device: THYMATRON DGx Electrode Placement: Bifrontal Program/Pulse Width: 0.50 Energy Percent: 100 Seizure Duration By EEG (in seconds): 36 By Motor Observation (in seconds): 21 Medications Administration General Anesthetic: Etomidate (15) Muscle Relaxant: Succinylcholine (100) Ancillary Medications Analgesics: Torodol - Pre ECT Anti-emetics: Zofran - Pre ECT Miscillaneous Medications: Propofol (30) Airway Management Airway Management: Bag Mask Ventilation Treatment Recommendations No Changes Recommended: No change Pt Tolerated Procedure w/o Issue: Yes
[2023-12-10] MEDS: Haloperidol Lactate 5 MG/ML VIAL 2 MG IVPUSH (08:02)
[2023-12-10] MEDS: Benztropine Mesylate 0.5 MG TABLET 0.25 MG PO (09:31)
[2023-12-10] MEDS: Docusate Sodium 100 MG CAPSULE PO ×2 (09:32→19:57)
[2023-12-10] MEDS: Thiamine HCL 100 MG TABLET PO ×2 (09:32→19:57)
[2023-12-10 10:09] LABS: Creatinine Clr Calc Pharmacy 72.9; Estimated Glomerular Filt Rate > 60
--- NOTE | 2023-12-10 13:13 | HO.PSYCHPN ---
Subjective Subjective Date of Service: 12/10/23 Reason For Visit: Bipolar disorder depressed with psychotic features Subjective Notes: Conditional Voluntary (By affirmed healthcare proxy) Healthcare Proxy: Yes Interim History: The nursing staff reported the patient had a brighter affect pleasant social but during the interview today at ECT she stated that she was not feeling very well. Even though her affect is brighter and more expansive. On interview the patient reports that she is feeling tired after ECT but overall, she is doing much better, she was asking for D/C plan. Mental Status Exam Mental Status Exam Patient Appearance: Appropriate Patient Orientation: Person and Situation Level of Consciousness: Awake and Appropriate Patient Behavior: Guarded and Passive Mood Description: Withdrawn Affect Description: Constricted Patient Cognition Impaired: Yes Ability to Follow Directions: Good Speech Pattern: Clear Hallucinations: None Delusions: Ideas of Reference Thought Process: Distracted and Slowed Thinking Thought Content: positive for [place] and positive for Poverty of Content Judgement: Fair Diagnostics Vital Signs (24Hr): Vital Signs - 24 hr 12/09/23 20:00 12/10/23 05:18 12/10/23 05:19 Temperature 98 F 98 F Pulse Rate 74 74 Respiratory Rate 16 16 14 Blood Pressure 129/78 129/78 Pulse Oximetry 96 96 Oxygen Delivery Method Room Air Oxygen Flow Rate 12/10/23 06:42 12/10/23 07:53 12/10/23 07:58 Temperature 97.4 F 98.6 F Pulse Rate 67 87 84 Respiratory Rate 16 20 19 Blood Pressure 109/71 162/90 H 141/79 H Pulse Oximetry 97 94 94 Oxygen Delivery Method Room Air Nasal Cannula with ETCO2 Nasal Cannula with ETCO2 Oxygen Flow Rate 2 2 12/10/23 08:03 12/10/23 08:08 12/10/23 08:23 Temperature 98.6 F Pulse Rate 90 83 76 Respiratory Rate 20 20 20 Blood Pressure 121/84 127/76 119/78 Pulse Oximetry 94 96 95 Oxygen Delivery Method Nasal Cannula with ETCO2 Nasal Cannula with ETCO2 Room Air Oxygen Flow Rate 2 2 12/10/23 08:57 12/10/23 09:00 Temperature 98.3 F 98.3 F Pulse Rate 69 69 Respiratory Rate 18 18 Blood Pressure 129/80 129/80 Pulse Oximetry 96 96 Oxygen Delivery Method Room Air Room Air Oxygen Flow Rate BMI result Body Mass Index 22.3 Labs 11/11/23 15:25 12/10/23 09:53 Labs: Laboratory Results - last 48 hr 12/10/23 09:53 Creatinine 0.71 Estim Creat Clear Calc 72.9 Estimated GFR > 60 Medications Medications Current Medications Acetaminophen (Acetaminophen 325 Mg Tablet) 650 mg PO Q6H PRN PRN Reason: Headache/Pain Mild Scale (1-3) Last Admin: 12/04/23 06:43 Dose: 650 mg Al Hydroxide/Mg Hydroxide (Magnesium Hydrox/Alum Hydrox 30 Ml Oral.Susp) 30 ml PO Q6H PRN PRN Reason: Heartburn/Nausea Benztropine Mesylate (Benztropine Mesylate 0.5 Mg Tablet) 0.25 mg PO BID [facility] Last Admin: 12/10/23 09:31 Dose: 0.25 mg Cyclobenzaprine HCl (Cyclobenzaprine Hcl 10 Mg Tablet) 10 mg PO TID PRN PRN Reason: muscle spasm Docusate Sodium (Docusate Sodium 100 Mg Capsule) 100 mg PO BID [facility] Last Admin: 12/10/23 09:32 Dose: 100 mg Gabapentin (Gabapentin 300 Mg Capsule) 600 mg PO BEDTIME [facility] Last Admin: 12/09/23 20:09 Dose: 600 mg Hydroxyzine HCl (Hydroxyzine Hcl 25 Mg Tablet) 25 mg PO Q6H PRN PRN Reason: Anxiety Last Admin: 12/09/23 22:30 Dose: 25 mg Ibuprofen (Ibuprofen 400 Mg Tablet) 400 mg PO TID [facility] Last Admin: 12/10/23 09:50 Dose: Not Given Loratadine (Loratadine 10 Mg Tablet) 10 mg PO DAILY PRN PRN Reason: Allergy Symptoms Lorazepam (Lorazepam 1 Mg Tablet) 1 mg PO DAILY PRN PRN Reason: severe anxiety Magnesium Hydroxide (Milk Of Magnesia 30 Ml Oral.Susp) 30 ml PO DAILY PRN PRN Reason: Constipation Omeprazole (Omeprazole 20 Mg Capsule.Dr) 20 mg PO BID@0630,1630 [facility] Last Admin: 12/10/23 04:43 Dose: Not Given Paliperidone Palmitate (Paliperidone Palmitate 234 Mg/1.5 Ml Syringe) 234 mg IM Q30D [facility] Thiamine HCl (Thiamine Hcl 100 Mg Tablet) 100 mg PO BID [facility] Last Admin: 12/10/23 09:32 Dose: 100 mg Trazodone HCl (Trazodone Hcl 50 Mg Tablet) 50 mg PO BEDTIME MRX1 PRN PRN Reason: Insomnia Last Admin: 12/09/23 22:30 Dose: 50 mg Allergies Allergies Allergy/AdvReac Type Severity Reaction Status Date / Time bee pollen Allergy Severe Anaphylaxis Verified 01/25/22 15:16 levofloxacin [From Levaquin] Allergy Severe Itching Verified 01/25/22 15:16 enoxaparin [From Lovenox] Allergy Intermediate Rash Verified 01/25/22 15:16 Penicillins Allergy Unknown Unknown Verified 01/25/22 15:16 Seasonal Allergies Allergy Runny Nose Verified 01/25/22 15:16 venlafaxine [From Effexor] Allergy Constipatio Verified 01/25/22 15:16 n Assessment & Plan Assessment & Plan (1) Bipolar 1 disorder, depressed, severe: Status: Acute Code(s): F31.4 - Bipolar disorder, current episode depressed, severe, without psychotic features Assessment and Plan: 12/01: ECT to continue. One to one ordered for NPO times until after the treatment for added support and compliance. Plan Cardiac studies reviewed. Prior echocardiogram with LVEF 55-60% with no wall motion abnormalities and otherwise unremarkable. Myocardial perfusion imaging study shows a small area of mild intensity apical ischemia. Cardiac catheterization 2021 shows normal coronary arteries. Overall, no cardiac contraindications to proceed with ECT therapy. No clear explanation as to why she had a small troponin leak in the past after ECT. Possible coronary vasospasm from ECT? Cannot predict recurrence either. If clinically indicated, may pursue ECT therapy considering the above. At this moment the patient has enough criteria for ECT. Probably will need to rev paz her CV and filed for Section 7 and 8 since the patient is not compliant with medication grossly psychotic. But after discussing the case with her healthcare proxy and the legal team, on November 05 we are doing the paperwork to affirmed healthcare proxy. Encourage compliance with medication. On November 13 we got the information of the healthcare proxy we are going to start Invega Sustenna and discontinue Risperdal p.o. 11/16 Patient disorganized speech and behavior. Patient unable/unwilling to engage with writer producer. Staff reports not eating; did drink about 480 cc of fluids; not taking medications -since has had very poor p.o. intake, will get some baseline labs if patient willing 11/17 Patient had just fallen asleep when writer producer arrived and writer producer decided it was in patient's best interest to remain sleeping as she remains too disorganized to engage and sleep is likely therapeutic; also she is on a one-to-one and staff able to provide information. Staff reports that patient did a little better today regarding that she drank about 700 cc of fluid and ate half a sandwich. She said to staff person that she wanted to and go to [facility]. Reviewed labs: Mildly elevated white count Lytes WNL BUN/creatinine grossly WNL LFTs WNL Plan 1. Continue with Invega Sustenna as per plan. 2. We will consider ECT if she fails to Invega. Invega Sustenna 234 mg IM 2nd shot on November 20. 3. Cogentin 0.25 mg p.o. b.i.d. to target EPS 4. We will contact the affirmed healthcare proxy to start ECT. ECT has improved her mental status. Reason for continued inpatient stay Substantial Risk for: inability to function, rapid decompensation and med/psych decompensation Time Spent With Patient Time: Total time managing care of this patient today __20__ minutes.
--- NOTE | 2023-12-10 13:40 | PC.NURSE ---
Back to the unit from ECT at 8:55 am. Alert, oriented to self and place. Denies headache, denies any pain. Some dizziness and nausea. Feeling hungry. VS: T 98.3, P 69, BP 129/80, R 18, O2sat 96% on RA. Pt consumed 100% for breakfast. Denied dizziness and nausea after. Will continue to monitor.
[2023-12-10] MEDS: Omeprazole 20 MG CAPSULE.DR PO (15:32)
[2023-12-10] MEDS: Gabapentin 300 MG CAPSULE 600 MG PO (19:56)
[2023-12-11] MEDS: Omeprazole 20 MG CAPSULE.DR PO ×2 (05:31→15:42)
[2023-12-11 08:00] VITALS: BP 120/70; PULSE 87; RESP 18; TEMP 36.8; O2SAT 99
[2023-12-11] MEDS: Benztropine Mesylate 0.5 MG TABLET 0.25 MG PO ×2 (08:01→20:54)
[2023-12-11] MEDS: Docusate Sodium 100 MG CAPSULE PO (08:01)
[2023-12-11] MEDS: Thiamine HCL 100 MG TABLET PO (08:01)
--- NOTE | 2023-12-11 12:32 | HO.PSYCHPN ---
Subjective Subjective Date of Service: 12/11/23 Reason For Visit: Bipolar disorder depressed with psychotic features Subjective Notes: Conditional Voluntary (By affirmed healthcare proxy) Healthcare Proxy: Yes Interim History: The nursing staff reported the patient had been more cooperative, she has refused Motrin but she has taken all her medications. She slept 7 hours. The manager social responsibility reported that her sister is worried about relapse since the patient wants to be discharged soon. On interview we discussed treatment options she agreed to continue ECT and probably discharge early next week. Mental Status Exam Mental Status Exam Patient Appearance: Appropriate Patient Orientation: Person and Situation Level of Consciousness: Awake and Appropriate Patient Behavior: Cooperative and Passive Mood Description: Calm Affect Description: Blunted Patient Cognition Impaired: Yes Ability to Follow Directions: Fair Speech Pattern: Clear Hallucinations: None Delusions: Ideas of Reference Thought Process: Distracted and Slowed Thinking Thought Content: positive for Triplett, positive for Perseveration and positive for Poverty of Content Judgement: Fair Diagnostics Vital Signs (24Hr): Vital Signs - 24 hr 12/10/23 20:00 12/11/23 08:00 Temperature 97.3 F 98.2 F Pulse Rate 85 87 Respiratory Rate 18 Blood Pressure 111/63 120/70 Pulse Oximetry 96 99 Oxygen Delivery Method Room Air Room Air BMI result Body Mass Index 22.3 Labs 11/11/23 15:25 12/10/23 09:53 Labs: Laboratory Results - last 48 hr 12/10/23 09:53 Creatinine 0.71 Estim Creat Clear Calc 72.9 Estimated GFR > 60 Medications Medications Current Medications Acetaminophen (Acetaminophen 325 Mg Tablet) 650 mg PO Q6H PRN PRN Reason: Headache/Pain Mild Scale (1-3) Last Admin: 12/04/23 06:43 Dose: 650 mg Al Hydroxide/Mg Hydroxide (Magnesium Hydrox/Alum Hydrox 30 Ml Oral.Susp) 30 ml PO Q6H PRN PRN Reason: Heartburn/Nausea Benztropine Mesylate (Benztropine Mesylate 0.5 Mg Tablet) 0.25 mg PO BID [facility] Last Admin: 12/11/23 08:01 Dose: 0.25 mg Cyclobenzaprine HCl (Cyclobenzaprine Hcl 10 Mg Tablet) 10 mg PO TID PRN PRN Reason: muscle spasm Docusate Sodium (Docusate Sodium 100 Mg Capsule) 100 mg PO BID [facility] Last Admin: 06/11/24 08:01 Dose: 100 mg Gabapentin (Gabapentin 300 Mg Capsule) 600 mg PO BEDTIME [facility] Last Admin: 12/10/23 19:56 Dose: 600 mg Hydroxyzine HCl (Hydroxyzine Hcl 25 Mg Tablet) 25 mg PO Q6H PRN PRN Reason: Anxiety Last Admin: 12/09/23 22:30 Dose: 25 mg Loratadine (Loratadine 10 Mg Tablet) 10 mg PO DAILY PRN PRN Reason: Allergy Symptoms Lorazepam (Lorazepam 1 Mg Tablet) 1 mg PO DAILY PRN PRN Reason: severe anxiety Magnesium Hydroxide (Milk Of Magnesia 30 Ml Oral.Susp) 30 ml PO DAILY PRN PRN Reason: Constipation Omeprazole (Omeprazole 20 Mg Capsule.Dr) 20 mg PO BID@0630,1630 [facility] Last Admin: 12/11/23 05:31 Dose: 20 mg Paliperidone Palmitate (Paliperidone Palmitate 234 Mg/1.5 Ml Syringe) 234 mg IM Q30D [facility] Thiamine HCl (Thiamine Hcl 100 Mg Tablet) 100 mg PO BID [facility] Last Admin: 12/11/23 08:01 Dose: 100 mg Trazodone HCl (Trazodone Hcl 50 Mg Tablet) 50 mg PO BEDTIME MRX1 PRN PRN Reason: Insomnia Last Admin: 12/09/23 22:30 Dose: 50 mg Allergies Allergies Allergy/AdvReac Type Severity Reaction Status Date / Time bee pollen Allergy Severe Anaphylaxis Verified 01/25/22 15:16 levofloxacin [From Levaquin] Allergy Severe Itching Verified 01/25/22 15:16 enoxaparin [From Lovenox] Allergy Intermediate Rash Verified 01/25/22 15:16 Penicillins Allergy Unknown Unknown Verified 01/25/22 15:16 Seasonal Allergies Allergy Runny Nose Verified 01/25/22 15:16 venlafaxine [From Effexor] Allergy Constipatio Verified 01/25/22 15:16 n Assessment & Plan Assessment & Plan (1) Bipolar 1 disorder, depressed, severe: Status: Acute Code(s): F31.4 - Bipolar disorder, current episode depressed, severe, without psychotic features Assessment and Plan: 12/01: ECT to continue. One to one ordered for NPO times until after the treatment for added support and compliance. Plan Cardiac studies reviewed. Prior echocardiogram with LVEF 55-60% with no wall motion abnormalities and otherwise unremarkable. Myocardial perfusion imaging study shows a small area of mild intensity apical ischemia. Cardiac catheterization 2021 shows normal coronary arteries. Overall, no cardiac contraindications to proceed with ECT therapy. No clear explanation as to why she had a small troponin leak in the past after ECT. Possible coronary vasospasm from ECT? Cannot predict recurrence either. If clinically indicated, may pursue ECT therapy considering the above. At this moment the patient has enough criteria for ECT. Probably will need to rev paz her CV and filed for Section 7 and 8 since the patient is not compliant with medication grossly psychotic. But after discussing the case with her healthcare proxy and the legal team, on November 05 we are doing the paperwork to affirmed healthcare proxy. Encourage compliance with medication. On November 13 we got the information of the healthcare proxy we are going to start Invega Sustenna and discontinue Risperdal p.o. 11/16 Patient disorganized speech and behavior. Patient unable/unwilling to engage with loan underwriter. Staff reports not eating; did drink about 480 cc of fluids; not taking medications -since has had very poor p.o. intake, will get some baseline labs if patient willing 11/17 Patient had just fallen asleep when loan underwriter arrived and loan underwriter decided it was in patient's best interest to remain sleeping as she remains too disorganized to engage and sleep is likely therapeutic; also she is on a one-to-one and staff able to provide information. Staff reports that patient did a little better today regarding that she drank about 700 cc of fluid and ate half a sandwich. She said to staff person that she wanted to and go to [facility]. Reviewed labs: Mildly elevated white count Lytes WNL BUN/creatinine grossly WNL LFTs WNL Plan 1. Continue with Invega Sustenna as per plan. 2. We will consider ECT if she fails to Invega. Invega Sustenna 234 mg IM 2nd shot on November 20. 3. Cogentin 0.25 mg p.o. b.i.d. to target EPS 4. We will contact the affirmed healthcare proxy to start ECT. ECT has improved her mental status. Reason for continued inpatient stay Substantial Risk for: inability to function, rapid decompensation and med/psych decompensation Time Spent With Patient Time: Total time managing care of this patient today __20__ minutes.
[2023-12-11 20:00] VITALS: BP 122/64; PULSE 76; RESP 18; TEMP 36.4; O2SAT 96
[2023-12-11] MEDS: hydrOXYzine HCL 25 MG TABLET PO (20:53)
[2023-12-11] MEDS: traZODone HCL 50 MG TABLET PO ×2 (20:53→22:23)
[2023-12-11] MEDS: Gabapentin 300 MG CAPSULE 600 MG PO (20:54)
[2023-12-12] VITALS (11 sets, daily range): BP systolic 106–185; BP diastolic 55–80; PULSE 64–81; RESP 16–95; TEMP 36.2–36.8; O2SAT 94–100
--- NOTE | 2023-12-12 06:57 | HO.ANESPROP2 ---
[facility] Active Problems Active Problems: All Active Problems Preoperative cardiovascular examination (Acute) Pre-op evaluation (Acute) Medical clearance for psychiatric admission (Acute) Bipolar 1 disorder, depressed, severe (Acute) Elevated troponin (Acute) Chest discomfort (Acute) S/P cardiac catheterization (Acute) Bipolar 1 disorder (Acute) Varus deformity of knee (Acute) Osteoarthritis of left knee (Acute) Anxiety (Acute) GERD (gastroesophageal reflux disease) (Acute) Insomnia (Acute) Osteopenia (Acute) Murmur, cardiac (Acute) Status post total knee replacement, left (Acute) Acute deep vein thrombosis (DVT) of left tibial vein (Chronic) Past Medical History Medical History History of skin cancer Hx of bladder problems VITO (generalized anxiety disorder) Murmur, cardiac Hx of thyroid nodule Osteopenia Hx of skin cancer, basal cell Seasonal allergies Insomnia Constipation GERD (gastroesophageal reflux disease) Anxiety History of electroconvulsive therapy Bipolar 1 disorder Family History Family History Mother Basal cell carcinoma (BCC) in situ of skin Osteoporosis Hyperlipidemia Father CAD (coronary artery disease) Alcoholism Sister Osteoporosis Depression Brother Cancer of tongue Cancer of skin Family history of problems with anesthesia: No Surgical History Surgical History Hx of colonoscopy H/O elbow surgery History of back surgery History of Problems with Anesthesia: No Social History Social History Household Members: None Housing: Apartment Are you a primary skin care consultant to a significant other at home: No Do you presently have visiting nurse or other home services: Yes Unable to assess alcohol history related to: Unable to respond Comment: 1:1 suoervision Patient Tobacco Use Status: Former Tobacco user Tobacco use type: Cigarette Years Smoked: 30+, now vapes Smoked in Last 30 Days: No e-Cigarette/Vaping Use: Former Use Patient Interested in Nicotine Replacement: Yes Patient Given Instructions on How to Stop Smoking: Yes Date Education Initiated: 11/01/23 Second Hand Smoke Exposure: No Use of substances other than those prescribed or required for medical reasons: Yes Substance Use Type: Crack/Cocaine Last Used Substance: Unknown Currently Displaying Signs/Symptoms of Drug Intoxication Withdrawal: No Any prior treatment program specific to substance use: No Have you been hit, kicked, punched, or otherwise hurt by someone within the past year? If so, by whom?: No Do you feel safe in your current relationship?: Yes Is there a partner from a previous relationship who is making you feel unsafe now?: No Are you made to feel afraid or neglected: No [facility] Pract[facility]: [facility] Advance Directives: No Advance Directives Information Provided: No Do you have thoughts of harming others: None Do you have a plan to hurt others: No Plan Recently lost weight without trying: Yes How much weight loss: 14-23 pounds Eating poorly because of decreased appetite: Yes Nutrition screen score: 5 Nutrition Risks: Dental problems and Poor intake 0-25% >4 days Patient : No : No Poor oral hygiene: No service: No Current occupational status: unemployed and retired 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 presenting disorganized behavior when being interviewed. Meds Allergies Allergy/AdvReac Type Severity Reaction Status Date / Time bee pollen Allergy Severe Anaphylaxis Verified 01/25/22 15:16 levofloxacin [From Levaquin] Allergy Severe Itching Verified 01/25/22 15:16 enoxaparin [From Lovenox] Allergy Intermediate Rash Verified 01/25/22 15:16 Penicillins Allergy Unknown Unknown Verified 01/25/22 15:16 Seasonal Allergies Allergy Runny Nose Verified 01/25/22 15:16 venlafaxine [From Effexor] Allergy Constipatio Verified 01/25/22 15:16 n Active Medications: Current Medications Acetaminophen (Acetaminophen 325 Mg Tablet) 650 mg PO Q6H PRN PRN Reason: Headache/Pain Mild Scale (1-3) Last Admin: 12/04/23 06:43 Dose: 650 mg Al Hydroxide/Mg Hydroxide (Magnesium Hydrox/Alum Hydrox 30 Ml Oral.Susp) 30 ml PO Q6H PRN PRN Reason: Heartburn/Nausea Benztropine Mesylate (Benztropine Mesylate 0.5 Mg Tablet) 0.25 mg PO BID [facility] Last Admin: 12/11/23 20:54 Dose: 0.25 mg Cyclobenzaprine HCl (Cyclobenzaprine Hcl 10 Mg Tablet) 10 mg PO TID PRN PRN Reason: muscle spasm Docusate Sodium (Docusate Sodium 100 Mg Capsule) 100 mg PO BID [facility] Last Admin: 12/11/23 21:00 Dose: Not Given Gabapentin (Gabapentin 300 Mg Capsule) 600 mg PO BEDTIME [facility] Last Admin: 12/11/23 20:54 Dose: 600 mg Hydroxyzine HCl (Hydroxyzine Hcl 25 Mg Tablet) 25 mg PO Q6H PRN PRN Reason: Anxiety Last Admin: 12/11/23 20:53 Dose: 25 mg Loratadine (Loratadine 10 Mg Tablet) 10 mg PO DAILY PRN PRN Reason: Allergy Symptoms Lorazepam (Lorazepam 1 Mg Tablet) 1 mg PO DAILY PRN PRN Reason: severe anxiety Magnesium Hydroxide (Milk Of Magnesia 30 Ml Oral.Susp) 30 ml PO DAILY PRN PRN Reason: Constipation Omeprazole (Omeprazole 20 Mg Capsule.Dr) 20 mg PO BID@0630,1630 [facility] Last Admin: 12/12/23 06:19 Dose: Not Given Paliperidone Palmitate (Paliperidone Palmitate 234 Mg/1.5 Ml Syringe) 234 mg IM Q30D [facility] Thiamine HCl (Thiamine Hcl 100 Mg Tablet) 100 mg PO BID [facility] Last Admin: 12/11/23 21:00 Dose: Not Given Trazodone HCl (Trazodone Hcl 50 Mg Tablet) 50 mg PO BEDTIME MRX1 PRN PRN Reason: Insomnia Last Admin: 12/11/23 22:23 Dose: 50 mg Home Medications ?Medication ?Instructions ?Recorded ?Confirmed ?Last Taken ?Type omeprazole 20 mg capsule,delayed 20 mg PO BID 05/09/21 11/01/23 08/09/21 History release docusate sodium 100 mg capsule 1 cap PO BID 07/21/21 11/01/23 Unknown History loratadine 10 mg tablet (Claritin) 10 mg PO DAILY PRN Allergy Symptoms 07/21/21 11/01/23 Unknown History acetaminophen 325 mg tablet 650 mg PO Q6H PRN Fever Or Pain 09/08/21 11/01/23 10/29/23 14:05 History gabapentin 400 mg capsule 1,200 mg PO BEDTIME 01/25/22 11/01/23 10/31/23 19:37 History citalopram 20 mg tablet 20 mg PO DAILY 11/01/23 11/01/23 Unknown History cyclobenzaprine 10 mg tablet 10 mg PO TID PRN muscle spasm 11/01/23 11/01/23 Unknown History eszopiclone 3 mg tablet 3 mg PO BEDTIME 11/01/23 11/01/23 Unknown History ibuprofen 600 mg tablet 600 mg PO TID 11/01/23 11/01/23 10/31/23 14:26 History lorazepam 2 mg tablet 2 mg PO TID 11/01/23 11/01/23 11/01/23 14:00 History oxycodone 5 mg capsule 2.5 mg PO Q8H PRN Severe Pain 11/01/23 11/01/23 Unknown History (Scale Score 7-10) quetiapine 400 mg tablet 800 mg PO BEDTIME 11/01/23 11/01/23 Unknown History Exam Height,Weight and Vital Signs: Height 5 ft 6 in Weight 62.652 kg Last Vital Signs Temp 97.2 F 12/12/23 06:23 Pulse 72 12/12/23 06:23 Resp 16 12/12/23 06:23 BP 106/63 12/12/23 06:23 Pulse Ox 97 12/12/23 06:23 O2 Del Method Room Air 12/12/23 06:23 O2 Flow Rate 2 12/10/23 08:08 Pertinent Lab Results Pertinent Lab Results: Laboratory Tests 11/11/23 11/17/23 12/10/23 15:25 19:20 09:53 WBC 12.4 H RBC 4.04 L Hgb 12.4 Hct 36.0 L MCV 89.1 MCH 30.7 MCHC 34.4 RDW 12.8 Plt Count 249 MPV 9.1 L Immature Gran % (Auto) 0.6 H Neut % (Auto) 71.6 Lymph % (Auto) 13.2 L Castro % (Auto) 14.0 H Eos % (Auto) 0.3 Baso % (Auto) 0.3 Lymph # (Auto) 1.6 Castro # (Auto) 1.7 H Eos # (Auto) 0.0 Baso # (Auto) 0.0 Abs Immat Gran (auto) 0.08 H Absolute Neuts (auto) 8.9 H Absolute Nucleated RBC 0.000 Nucleated RBC % (auto) 0.0 Smear Tech's Comments VERIFIED Sodium 141 136 Potassium 3.4 3.4 Chloride 105 103 Carbon Dioxide 22 22 Anion Gap 17 14 BUN 27 H 22 H Creatinine 0.77 0.84 0.71 Estim Creat Clear Calc 67.2 61.1 72.9 Estimated GFR > 60 > 60 > 60 Random Glucose 65 166 H Calcium 9.5 9.6 Total Bilirubin 0.2 0.3 AST 23 22 ALT 29 24 Alkaline Phosphatase 106 104 Total Protein 6.5 7.1 Albumin 3.8 4.2 Airway Mallampati Class: II TM Dist: >3cm Neck ROM: Full Partial: Upper Heart: rrr Lungs: cta Assessment and Plan Assessment Anesthesia Assessment: Anesthesia Plan Discussed and Chart Reviewed Final Anesthetic Review Family History of Problems with Anesthesia: No History of Problems with Anesthesia: No NPO: Yes ASA Class: III Final Preanesthetic Review: No Changes in Pt Med Stat, Meds/Allgs Chart Reviewed and Consent Obtained/Reviewed Patient Risk: Intermediate Procedure Risk: Intermediate Anesthetic Plan Anesthetic Plan: GA Disposition: Standard PACU
--- NOTE | 2023-12-12 07:24 | MHC.SHP ---
Pre-Procedural Eval Section A - 24 Hr Update-Section A only Date of Service: 12/12/23 The patient is an INPATIENT: Yes Changes since office visit: Yes Patient answered all questions; No Cold of Flu in the past 2 weeks, No New Medical Problems and No Changes in Medication The patient has been examined within 24 hours of the surgical procedure. The History & Physical has been completed within 30 days and I have reviewed it.: Yes Section B - Complete if H&P > 30 days Chief Complaint: Bipolar disorder depressed with psychotic features Allergies: Allergies Allergy/AdvReac Type Severity Reaction Status Date / Time bee pollen Allergy Severe Anaphylaxis Verified 01/25/22 15:16 levofloxacin [From Levaquin] Allergy Severe Itching Verified 01/25/22 15:16 enoxaparin [From Lovenox] Allergy Intermediate Rash Verified 01/25/22 15:16 Penicillins Allergy Unknown Unknown Verified 01/25/22 15:16 Seasonal Allergies Allergy Runny Nose Verified 01/25/22 15:16 venlafaxine [From Effexor] Allergy Constipatio Verified 01/25/22 15:16 n Plan I have reviewed the history and physical and performed a pertinent physical examination on my patient. No changes have occurred unless specified. Time Spent With Patient Time: Total time managing care of this patient today ____ minutes.
[2023-12-12] MEDS: Haloperidol Lactate 5 MG/ML VIAL 2.5 MG IVPUSH (08:15)
[2023-12-12] MEDS: Docusate Sodium 100 MG CAPSULE PO ×2 (09:57→20:22)
[2023-12-12] MEDS: Benztropine Mesylate 0.5 MG TABLET 0.25 MG PO ×2 (09:57→20:22)
[2023-12-12] MEDS: Thiamine HCL 100 MG TABLET PO ×2 (09:57→20:22)
[2023-12-12] MEDS: Omeprazole 20 MG CAPSULE.DR PO ×2 (09:57→16:21)
--- NOTE | 2023-12-12 10:14 | PC.NURSE ---
Patient transferred back to the unit around 8:45am in a stable condition. Alert and oriented to person and place. Denies pain, denies nausea, Provided education on safety. VS: 98.2-71, 130/68, 97% on RA. Will continue to monitor.
--- NOTE | 2023-12-12 11:20 | HO.ECTPROC ---
ECT Procedure Note Diagnosis/Treatment Date of Service: 12/12/23 Diagnosis: Bipolar disorder Previous ECT Date: 12/10/23 Current Treatment Number: 5 Treatment: Series Interval Clinical Notes: The patient was significantly clear future oriented more organized in thought no psychosis when seen prior to treatment. Did well with Haldol 2.5 IV and Versed post. Appears to be approaching toward a better baseline Time: Total time managing care of this patient today ____ minutes. ECT Settings Device: THYMATRON DGx Electrode Placement: Bifrontal Program/Pulse Width: 0.50 Energy Percent: 100 Seizure Duration By EEG (in seconds): 19 Medications Administration General Anesthetic: Etomidate (15) Muscle Relaxant: Succinylcholine (100) and Other (haldol 2.5 iv) Ancillary Medications Anti-emetics: Zofran - Pre ECT Miscillaneous Medications: Midazolam and Haldol Airway Management Airway Management: Bag Mask Ventilation Treatment Recommendations Notes: lower etomidate to 12 mg Pt Tolerated Procedure w/o Issue: Yes
--- NOTE | 2023-12-12 12:13 | MHC.CLN ---
F/U DIET=REGULAR. CONTINUE TO PROVIDE ENSURE BID (700 KCALS, 40 G PROTEIN). RECEIVING ECT. PO INTAKE IMPROVED WITH MANY MEALS 100%. FAVORABLE SIGNIFICANT WEIGHT GAIN X 3 WEEKS, +6.6%. RD TO FOLLOW WEEKLY.
--- NOTE | 2023-12-12 15:07 | P.PNPSI_ITS ---
Subjective Subjective Date of Service: 12/12/23 Reason For Visit: Bipolar disorder depressed with psychotic features Subjective Notes: Conditional Voluntary Interim History: The nursing staff reported the patient has doing much better after ECT even though she remains with blunted affect. The occupational therapist reported that she looks a little more functional. The older adult social work specialist reported that we will have a meeting with her sister for discharge planning. She was visited by her sister yesterday. On interview the patient wants to be discharged as soon as possible she is aware of aftercare and a family meeting she agreed to be in the hospital to finished ECT treatment, up to 8 treatments Mental Status Exam Mental Status Exam Patient Appearance: Appropriate and Unkempt Patient Orientation: Person and Situation Level of Consciousness: Awake and Appropriate Patient Behavior: Guarded and Passive Mood Description: Withdrawn Affect Description: Constricted Patient Cognition Impaired: Yes Ability to Follow Directions: Good Speech Pattern: Clear Hallucinations: None Delusions: Not Present Thought Process: Distracted and Slowed Thinking Thought Content: positive for [place], positive for Poverty of Content and positive for Thought Blocking Judgement: Fair Diagnostics Vital Signs (24Hr): Vital Signs - 24 hr 12/11/23 20:00 12/12/23 06:01 12/12/23 06:23 Temperature 97.5 F 97.6 F 97.2 F Pulse Rate 76 78 72 Respiratory Rate 18 95 H 16 Blood Pressure 122/64 110/56 L 106/63 Pulse Oximetry 96 97 Oxygen Delivery Method Room Air Room Air Oxygen Flow Rate 12/12/23 07:45 12/12/23 07:50 12/12/23 07:55 Temperature 98 F Pulse Rate 74 78 81 Respiratory Rate 20 18 16 Blood Pressure 185/80 H 111/67 117/66 Pulse Oximetry 94 94 97 Oxygen Delivery Method Nasal Cannula Nasal Cannula Nasal Cannula Oxygen Flow Rate 2 2 2 12/12/23 08:00 12/12/23 08:05 12/12/23 08:15 Temperature 98.2 F Pulse Rate 78 71 70 Respiratory Rate 16 18 17 Blood Pressure 112/62 130/68 131/69 Pulse Oximetry 99 97 100 Oxygen Delivery Method Nasal Cannula Room Air Nasal Cannula with ETCO2 Oxygen Flow Rate 2 2 12/12/23 08:30 12/12/23 08:47 Temperature 98.1 F Pulse Rate 64 66 Respiratory Rate 16 18 Blood Pressure 131/69 126/69 Pulse Oximetry 99 99 Oxygen Delivery Method Room Air Oxygen Flow Rate BMI result Body Mass Index 22.3 Labs 11/11/23 15:25 12/10/23 09:53 Medications Medications Current Medications Acetaminophen (Acetaminophen 325 Mg Tablet) 650 mg PO Q6H PRN PRN Reason: Headache/Pain Mild Scale (1-3) Last Admin: 12/04/23 06:43 Dose: 650 mg Al Hydroxide/Mg Hydroxide (Magnesium Hydrox/Alum Hydrox 30 Ml Oral.Susp) 30 ml PO Q6H PRN PRN Reason: Heartburn/Nausea Benztropine Mesylate (Benztropine Mesylate 0.5 Mg Tablet) 0.25 mg PO BID [facility] Last Admin: 12/12/23 09:57 Dose: 0.25 mg Cyclobenzaprine HCl (Cyclobenzaprine Hcl 10 Mg Tablet) 10 mg PO TID PRN PRN Reason: muscle spasm Docusate Sodium (Docusate Sodium 100 Mg Capsule) 100 mg PO BID [facility] Last Admin: 12/12/23 09:57 Dose: 100 mg Gabapentin (Gabapentin 300 Mg Capsule) 600 mg PO BEDTIME [facility] Last Admin: 12/11/23 20:54 Dose: 600 mg Hydroxyzine HCl (Hydroxyzine Hcl 25 Mg Tablet) 25 mg PO Q6H PRN PRN Reason: Anxiety Last Admin: 12/11/23 20:53 Dose: 25 mg Lactated Ringer's (Lr) 1,000 mls @ 50 mls/hr IVCONT .Q20H [facility] Last Admin: 12/12/23 13:23 Dose: Not Given Loratadine (Loratadine 10 Mg Tablet) 10 mg PO DAILY PRN PRN Reason: Allergy Symptoms Lorazepam (Lorazepam 1 Mg Tablet) 1 mg PO DAILY PRN PRN Reason: severe anxiety Magnesium Hydroxide (Milk Of Magnesia 30 Ml Oral.Susp) 30 ml PO DAILY PRN PRN Reason: Constipation Omeprazole (Omeprazole 20 Mg Capsule.Dr) 20 mg PO BID@0630,1630 [facility] Last Admin: 12/12/23 09:57 Dose: 20 mg Paliperidone Palmitate (Paliperidone Palmitate 234 Mg/1.5 Ml Syringe) 234 mg IM Q30D [facility] Thiamine HCl (Thiamine Hcl 100 Mg Tablet) 100 mg PO BID [facility] Last Admin: 12/12/23 09:57 Dose: 100 mg Trazodone HCl (Trazodone Hcl 50 Mg Tablet) 50 mg PO BEDTIME MRX1 PRN PRN Reason: Insomnia Last Admin: 12/11/23 22:23 Dose: 50 mg Allergies Allergies Allergy/AdvReac Type Severity Reaction Status Date / Time bee pollen Allergy Severe Anaphylaxis Verified 01/25/22 15:16 levofloxacin [From Levaquin] Allergy Severe Itching Verified 01/25/22 15:16 enoxaparin [From Lovenox] Allergy Intermediate Rash Verified 01/25/22 15:16 Penicillins Allergy Unknown Unknown Verified 01/25/22 15:16 Seasonal Allergies Allergy Runny Nose Verified 01/25/22 15:16 venlafaxine [From Effexor] Allergy Constipatio Verified 01/25/22 15:16 n Assessment & Plan Assessment & Plan (1) Bipolar 1 disorder, depressed, severe: Status: Acute Code(s): F31.4 - Bipolar disorder, current episode depressed, severe, without psychotic features Assessment and Plan: 12/01: ECT to continue. One to one ordered for NPO times until after the treatment for added support and compliance. Plan Cardiac studies reviewed. Prior echocardiogram with LVEF 55-60% with no wall motion abnormalities and otherwise unremarkable. Myocardial perfusion imaging study shows a small area of mild intensity apical ischemia. Cardiac catheterization 2021 shows normal coronary arteries. Overall, no cardiac contraindications to proceed with ECT therapy. No clear explanation as to why she had a small troponin leak in the past after ECT. Possible coronary vasospasm from ECT? Cannot predict recurrence either. If clinically indicated, may pursue ECT therapy considering the above. At this moment the patient has enough criteria for ECT. Probably will need to rev paz her CV and filed for Section 7 and 8 since the patient is not compliant with medication grossly psychotic. But after discussing the case with her healthcare proxy and the legal team, on November 05 we are doing the paperwork to affirmed healthcare proxy. Encourage compliance with medication. On November 13 we got the information of the healthcare proxy we are going to start Invega Sustenna and discontinue Risperdal p.o. 11/16 Patient disorganized speech and behavior. Patient unable/unwilling to engage with advertising copywriter. Staff reports not eating; did drink about 480 cc of fluids; not taking medications -since has had very poor p.o. intake, will get some baseline labs if patient willing 11/17 Patient had just fallen asleep when advertising copywriter arrived and advertising copywriter decided it was in patient's best interest to remain sleeping as she remains too disorganized to engage and sleep is likely therapeutic; also she is on a one-to-one and staff able to provide information. Staff reports that patient did a little better today regarding that she drank about 700 cc of fluid and ate half a sandwich. She said to staff person that she wanted to and go to [facility]. Reviewed labs: Mildly elevated white count Lytes WNL BUN/creatinine grossly WNL LFTs WNL Plan 1. Continue with Invega Sustenna as per plan. 2. We will consider ECT if she fails to Invega. Invega Sustenna 234 mg IM 2nd shot on November 20. 3. Cogentin 0.25 mg p.o. b.i.d. to target EPS 4. We will contact the affirmed healthcare proxy to start ECT. ECT has improved her mental status. 5. Family meeting soon Reason for continued inpatient stay Substantial Risk for: inability to function, rapid decompensation and med/psych decompensation Time Spent With Patient Time: Total time managing care of this patient today ___20_ minutes.
[2023-12-12] MEDS: traZODone HCL 50 MG TABLET PO ×2 (20:22→21:30)
[2023-12-12] MEDS: Gabapentin 300 MG CAPSULE 600 MG PO (20:22)
[2023-12-13] MEDS: Omeprazole 20 MG CAPSULE.DR PO ×2 (06:27→15:58)
[2023-12-13 07:00] VITALS: BMI 23.9
[2023-12-13 08:00] VITALS: BP 138/77; PULSE 89; RESP 16; TEMP 36.5; O2SAT 96
[2023-12-13] MEDS: Benztropine Mesylate 0.5 MG TABLET 0.25 MG PO ×2 (08:27→20:05)
[2023-12-13] MEDS: Docusate Sodium 100 MG CAPSULE PO ×2 (08:28→20:04)
[2023-12-13] MEDS: Thiamine HCL 100 MG TABLET PO ×2 (08:28→20:05)
--- NOTE | 2023-12-13 12:12 | HO.PSYCHPN ---
Subjective Subjective Date of Service: 12/13/23 Reason For Visit: Bipolar disorder depressed with psychotic features Subjective Notes: Conditional Voluntary (By affirmed healthcare proxy) Interim History: The nursing staff reported the patient's affect is brighter, she has been pleasant cooperative medication compliant. She wants to take melatonin instead of trazodone. The occupational therapist reported that she is much clear in groups directable. The social worker masters reported that we are going to arrange a meeting next Sunday at 13:00 with her sister who is affirmed healthcare proxy. One of the problems for discharge chief compliance for ECT as an outpatient. On interview the patient denies new symptoms she feels better. Still some limited insight into her condition. Mental Status Exam Mental Status Exam Patient Appearance: Appropriate Patient Orientation: Person and Situation Level of Consciousness: Awake and Appropriate Patient Behavior: Guarded and Passive Mood Description: Withdrawn Affect Description: Constricted Patient Cognition Impaired: Yes Ability to Follow Directions: Good Speech Pattern: Clear Hallucinations: None Delusions: Not Present Thought Process: Distracted and Slowed Thinking Thought Content: positive for Poverty of Content and positive for Thought Blocking Judgement: Fair Diagnostics Vital Signs (24Hr): Vital Signs - 24 hr 12/12/23 20:00 12/13/23 08:00 Temperature 97.6 F 97.7 F Pulse Rate 81 89 Respiratory Rate 18 16 Blood Pressure 111/55 L 138/77 Pulse Oximetry 97 96 Oxygen Delivery Method Room Air Room Air BMI result Body Mass Index 23.9 Labs 11/11/23 15:25 12/10/23 09:53 Medications Medications Current Medications Acetaminophen (Acetaminophen 325 Mg Tablet) 650 mg PO Q6H PRN PRN Reason: Headache/Pain Mild Scale (1-3) Last Admin: 12/04/23 06:43 Dose: 650 mg Al Hydroxide/Mg Hydroxide (Magnesium Hydrox/Alum Hydrox 30 Ml Oral.Susp) 30 ml PO Q6H PRN PRN Reason: Heartburn/Nausea Benztropine Mesylate (Benztropine Mesylate 0.5 Mg Tablet) 0.25 mg PO BID [facility] Last Admin: 12/13/23 08:27 Dose: 0.25 mg Cyclobenzaprine HCl (Cyclobenzaprine Hcl 10 Mg Tablet) 10 mg PO TID PRN PRN Reason: muscle spasm Docusate Sodium (Docusate Sodium 100 Mg Capsule) 100 mg PO BID [facility] Last Admin: 12/13/23 08:28 Dose: 100 mg Gabapentin (Gabapentin 300 Mg Capsule) 600 mg PO BEDTIME [facility] Last Admin: 12/12/23 20:22 Dose: 600 mg Hydroxyzine HCl (Hydroxyzine Hcl 25 Mg Tablet) 25 mg PO Q6H PRN PRN Reason: Anxiety Last Admin: 12/11/23 20:53 Dose: 25 mg Lactated Ringer's (Lr) 1,000 mls @ 50 mls/hr IVCONT .Q20H [facility] Last Admin: 12/13/23 05:31 Dose: Not Given Loratadine (Loratadine 10 Mg Tablet) 10 mg PO DAILY PRN PRN Reason: Allergy Symptoms Lorazepam (Lorazepam 1 Mg Tablet) 1 mg PO DAILY PRN PRN Reason: severe anxiety Magnesium Hydroxide (Milk Of Magnesia 30 Ml Oral.Susp) 30 ml PO DAILY PRN PRN Reason: Constipation Omeprazole (Omeprazole 20 Mg Capsule.Dr) 20 mg PO BID@0630,1630 [facility] Last Admin: 12/13/23 06:27 Dose: 20 mg Paliperidone Palmitate (Paliperidone Palmitate 234 Mg/1.5 Ml Syringe) 234 mg IM Q30D [facility] Thiamine HCl (Thiamine Hcl 100 Mg Tablet) 100 mg PO BID [facility] Last Admin: 12/13/23 08:28 Dose: 100 mg Trazodone HCl (Trazodone Hcl 50 Mg Tablet) 50 mg PO BEDTIME MRX1 PRN PRN Reason: Insomnia Last Admin: 12/12/23 21:30 Dose: 50 mg Allergies Allergies Allergy/AdvReac Type Severity Reaction Status Date / Time bee pollen Allergy Severe Anaphylaxis Verified 01/25/22 15:16 levofloxacin [From Levaquin] Allergy Severe Itching Verified 01/25/22 15:16 enoxaparin [From Lovenox] Allergy Intermediate Rash Verified 01/25/22 15:16 Penicillins Allergy Unknown Unknown Verified 01/25/22 15:16 Seasonal Allergies Allergy Runny Nose Verified 01/25/22 15:16 venlafaxine [From Effexor] Allergy Constipatio Verified 01/25/22 15:16 n Assessment & Plan Assessment & Plan (1) Bipolar 1 disorder, depressed, severe: Status: Acute Code(s): F31.4 - Bipolar disorder, current episode depressed, severe, without psychotic features Assessment and Plan: 12/01: ECT to continue. One to one ordered for NPO times until after the treatment for added support and compliance. Plan Cardiac studies reviewed. Prior echocardiogram with LVEF 55-60% with no wall motion abnormalities and otherwise unremarkable. Myocardial perfusion imaging study shows a small area of mild intensity apical ischemia. Cardiac catheterization 2021 shows normal coronary arteries. Overall, no cardiac contraindications to proceed with ECT therapy. No clear explanation as to why she had a small troponin leak in the past after ECT. Possible coronary vasospasm from ECT? Cannot predict recurrence either. If clinically indicated, may pursue ECT therapy considering the above. At this moment the patient has enough criteria for ECT. Probably will need to rev paz her CV and filed for Section 7 and 8 since the patient is not compliant with medication grossly psychotic. But after discussing the case with her healthcare proxy and the legal team, on November 05 we are doing the paperwork to affirmed healthcare proxy. Encourage compliance with medication. On November 13 we got the information of the healthcare proxy we are going to start Invega Sustenna and discontinue Risperdal p.o. 11/16 Patient disorganized speech and behavior. Patient unable/unwilling to engage with scientific technical writer. Staff reports not eating; did drink about 480 cc of fluids; not taking medications -since has had very poor p.o. intake, will get some baseline labs if patient willing 11/17 Patient had just fallen asleep when scientific technical writer arrived and scientific technical writer decided it was in patient's best interest to remain sleeping as she remains too disorganized to engage and sleep is likely therapeutic; also she is on a one-to-one and staff able to provide information. Staff reports that patient did a little better today regarding that she drank about 700 cc of fluid and ate half a sandwich. She said to staff person that she wanted to and go to [facility]. Reviewed labs: Mildly elevated white count Lytes WNL BUN/creatinine grossly WNL LFTs WNL Plan 1. Continue with Invega Sustenna as per plan. 2. We will consider ECT if she fails to Invega. Invega Sustenna 234 mg IM 2nd shot on November 20. 3. Cogentin 0.25 mg p.o. b.i.d. to target EPS 4. We will contact the affirmed healthcare proxy to start ECT. ECT has improved her mental status. 5. Family meeting for next Sunday Reason for continued inpatient stay Substantial Risk for: inability to function, rapid decompensation and med/psych decompensation Time Spent With Patient Time: Total time managing care of this patient today __20__ minutes.
[2023-12-13 20:00] VITALS: BP 138/67; PULSE 73; RESP 18; TEMP 36.2; O2SAT 98
[2023-12-13] MEDS: Gabapentin 300 MG CAPSULE 600 MG PO (20:04)
[2023-12-14] VITALS (11 sets, daily range): BP systolic 99–143; BP diastolic 58–72; PULSE 67–92; RESP 15–21; TEMP 35.8–36.5; O2SAT 92–98
--- NOTE | 2023-12-14 06:48 | P.CONAN_ITS ---
[facility] Active Problems Active Problems: All Active Problems Preoperative cardiovascular examination (Acute) Pre-op evaluation (Acute) Medical clearance for psychiatric admission (Acute) Bipolar 1 disorder, depressed, severe (Acute) Elevated troponin (Acute) Chest discomfort (Acute) S/P cardiac catheterization (Acute) Bipolar 1 disorder (Acute) Varus deformity of knee (Acute) Osteoarthritis of left knee (Acute) Anxiety (Acute) GERD (gastroesophageal reflux disease) (Acute) Insomnia (Acute) Osteopenia (Acute) Murmur, cardiac (Acute) Status post total knee replacement, left (Acute) Acute deep vein thrombosis (DVT) of left tibial vein (Chronic) Past Medical History Medical History History of skin cancer Hx of bladder problems VITO (generalized anxiety disorder) Murmur, cardiac Hx of thyroid nodule Osteopenia Hx of skin cancer, basal cell Seasonal allergies Insomnia Constipation GERD (gastroesophageal reflux disease) Anxiety History of electroconvulsive therapy Bipolar 1 disorder Family History Family History Mother Basal cell carcinoma (BCC) in situ of skin Osteoporosis Hyperlipidemia Father CAD (coronary artery disease) Alcoholism Sister Osteoporosis Depression Brother Cancer of tongue Cancer of skin Family history of problems with anesthesia: No Surgical History Surgical History Hx of colonoscopy H/O elbow surgery History of back surgery History of Problems with Anesthesia: No Social History Social History Household Members: None Housing: Apartment Are you a primary complex care nurse practitioner to a significant other at home: No Do you presently have visiting nurse or other home services: Yes Unable to assess alcohol history related to: Unable to respond Comment: 1:1 suoervision Patient Tobacco Use Status: Former Tobacco user Tobacco use type: Cigarette Years Smoked: 30+, now vapes Smoked in Last 30 Days: No e-Cigarette/Vaping Use: Former Use Patient Interested in Nicotine Replacement: Yes Patient Given Instructions on How to Stop Smoking: Yes Date Education Initiated: 11/01/23 Second Hand Smoke Exposure: No Use of substances other than those prescribed or required for medical reasons: Yes Substance Use Type: Crack/Cocaine Last Used Substance: Unknown Currently Displaying Signs/Symptoms of Drug Intoxication Withdrawal: No Any prior treatment program specific to substance use: No Have you been hit, kicked, punched, or otherwise hurt by someone within the past year? If so, by whom?: No Do you feel safe in your current relationship?: Yes Is there a partner from a previous relationship who is making you feel unsafe now?: No Are you made to feel afraid or neglected: No [employer] Healthcare Practices: sikh Advance Directives: No Advance Directives Information Provided: No Do you have thoughts of harming others: None Do you have a plan to hurt others: No Plan Recently lost weight without trying: Yes How much weight loss: 14-23 pounds Eating poorly because of decreased appetite: Yes Nutrition screen score: 5 Nutrition Risks: Dental problems and Poor intake 0-25% >4 days Patient : No : No Poor oral hygiene: No service: No Current occupational status: unemployed and retired 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 presenting disorganized behavior when being interviewed. Meds Allergies Allergy/AdvReac Type Severity Reaction Status Date / Time bee pollen Allergy Severe Anaphylaxis Verified 01/25/22 15:16 levofloxacin [From Levaquin] Allergy Severe Itching Verified 01/25/22 15:16 enoxaparin [From Lovenox] Allergy Intermediate Rash Verified 01/25/22 15:16 Penicillins Allergy Unknown Unknown Verified 01/25/22 15:16 Seasonal Allergies Allergy Runny Nose Verified 01/25/22 15:16 venlafaxine [From Effexor] Allergy Constipatio Verified 01/25/22 15:16 n Active Medications: Current Medications Acetaminophen (Acetaminophen 325 Mg Tablet) 650 mg PO Q6H PRN PRN Reason: Headache/Pain Mild Scale (1-3) Last Admin: 12/04/23 06:43 Dose: 650 mg Al Hydroxide/Mg Hydroxide (Magnesium Hydrox/Alum Hydrox 30 Ml Oral.Susp) 30 ml PO Q6H PRN PRN Reason: Heartburn/Nausea Benztropine Mesylate (Benztropine Mesylate 0.5 Mg Tablet) 0.25 mg PO BID [facility] Last Admin: 12/13/23 20:05 Dose: 0.25 mg Cyclobenzaprine HCl (Cyclobenzaprine Hcl 10 Mg Tablet) 10 mg PO TID PRN PRN Reason: muscle spasm Docusate Sodium (Docusate Sodium 100 Mg Capsule) 100 mg PO BID [facility] Last Admin: 12/13/23 20:04 Dose: 100 mg Gabapentin (Gabapentin 300 Mg Capsule) 600 mg PO BEDTIME [facility] Last Admin: 12/13/23 20:04 Dose: 600 mg Hydroxyzine HCl (Hydroxyzine Hcl 25 Mg Tablet) 25 mg PO Q6H PRN PRN Reason: Anxiety Last Admin: 12/11/23 20:53 Dose: 25 mg Lactated Ringer's (Lr) 1,000 mls @ 50 mls/hr IVCONT .Q20H [facility] Last Admin: 12/13/23 20:06 Dose: Not Given Loratadine (Loratadine 10 Mg Tablet) 10 mg PO DAILY PRN PRN Reason: Allergy Symptoms Lorazepam (Lorazepam 1 Mg Tablet) 1 mg PO DAILY PRN PRN Reason: severe anxiety Magnesium Hydroxide (Milk Of Magnesia 30 Ml Oral.Susp) 30 ml PO DAILY PRN PRN Reason: Constipation Omeprazole (Omeprazole 20 Mg Capsule.Dr) 20 mg PO BID@0630,1630 [facility] Last Admin: 12/14/23 05:14 Dose: Not Given Paliperidone Palmitate (Paliperidone Palmitate 234 Mg/1.5 Ml Syringe) 234 mg IM Q30D [facility] Thiamine HCl (Thiamine Hcl 100 Mg Tablet) 100 mg PO BID [facility] Last Admin: 12/13/23 20:05 Dose: 100 mg Trazodone HCl (Trazodone Hcl 50 Mg Tablet) 50 mg PO BEDTIME MRX1 PRN PRN Reason: Insomnia Last Admin: 12/12/23 21:30 Dose: 50 mg Home Medications ?Medication ?Instructions ?Recorded ?Confirmed ?Last Taken ?Type omeprazole 20 mg capsule,delayed 20 mg PO BID 05/09/21 11/01/23 08/09/21 History release docusate sodium 100 mg capsule 1 cap PO BID 07/21/21 11/01/23 Unknown History loratadine 10 mg tablet (Claritin) 10 mg PO DAILY PRN Allergy Symptoms 07/21/21 11/01/23 Unknown History acetaminophen 325 mg tablet 650 mg PO Q6H PRN Fever Or Pain 09/08/21 11/01/23 10/29/23 14:05 History gabapentin 400 mg capsule 1,200 mg PO BEDTIME 01/25/22 11/01/23 10/31/23 19:37 History citalopram 20 mg tablet 20 mg PO DAILY 11/01/23 11/01/23 Unknown History cyclobenzaprine 10 mg tablet 10 mg PO TID PRN muscle spasm 11/01/23 11/01/23 Unknown History eszopiclone 3 mg tablet 3 mg PO BEDTIME 11/01/23 11/01/23 Unknown History ibuprofen 600 mg tablet 600 mg PO TID 11/01/23 11/01/23 10/31/23 14:26 History lorazepam 2 mg tablet 2 mg PO TID 11/01/23 11/01/23 11/01/23 14:00 History oxycodone 5 mg capsule 2.5 mg PO Q8H PRN Severe Pain 11/01/23 11/01/23 Unknown History (Scale Score 7-10) quetiapine 400 mg tablet 800 mg PO BEDTIME 11/01/23 11/01/23 Unknown History Exam Height,Weight and Vital Signs: Height 5 ft 6 in Weight 67.041 kg Last Vital Signs Temp 97.7 F 12/14/23 06:34 Pulse 67 12/14/23 06:34 Resp 16 12/14/23 06:34 BP 104/67 12/14/23 06:34 Pulse Ox 98 12/14/23 06:34 O2 Del Method Room Air 12/14/23 06:34 O2 Flow Rate 2 12/12/23 08:15 Pertinent Lab Results Pertinent Lab Results: Laboratory Tests 11/11/23 11/17/23 12/10/23 15:25 19:20 09:53 WBC 12.4 H RBC 4.04 L Hgb 12.4 Hct 36.0 L MCV 89.1 MCH 30.7 MCHC 34.4 RDW 12.8 Plt Count 249 MPV 9.1 L Immature Gran % (Auto) 0.6 H Neut % (Auto) 71.6 Lymph % (Auto) 13.2 L [place] % (Auto) 14.0 H Eos % (Auto) 0.3 Baso % (Auto) 0.3 Lymph # (Auto) 1.6 [place] # (Auto) 1.7 H Eos # (Auto) 0.0 Baso # (Auto) 0.0 Abs Immat Gran (auto) 0.08 H Absolute Neuts (auto) 8.9 H Absolute Nucleated RBC 0.000 Nucleated RBC % (auto) 0.0 Smear Tech's Comments VERIFIED Sodium 141 136 Potassium 3.4 3.4 Chloride 105 103 Carbon Dioxide 22 22 Anion Gap 17 14 BUN 27 H 22 H Creatinine 0.77 0.84 0.71 Estim Creat Clear Calc 67.2 61.1 72.9 Estimated GFR > 60 > 60 > 60 Random Glucose 65 166 H Calcium 9.5 9.6 Total Bilirubin 0.2 0.3 AST 23 22 ALT 29 24 Alkaline Phosphatase 106 104 Total Protein 6.5 7.1 Albumin 3.8 4.2 Airway Mallampati Class: II TM Dist: >3cm Neck ROM: Full Partial: Upper Heart: rrr Lungs: cta Assessment and Plan Assessment Anesthesia Assessment: Anesthesia Plan Discussed and Chart Reviewed Final Anesthetic Review Family History of Problems with Anesthesia: No History of Problems with Anesthesia: No NPO: Yes ASA Class: III Final Preanesthetic Review: No Changes in Pt Med Stat, Meds/Allgs Chart Reviewed and Consent Obtained/Reviewed Patient Risk: Intermediate Procedure Risk: Intermediate Anesthetic Plan Anesthetic Plan: GA Disposition: Standard PACU
--- NOTE | 2023-12-14 07:32 | MHC.SHP ---
Pre-Procedural Eval Section A - 24 Hr Update-Section A only Date of Service: 12/14/23 The patient is an INPATIENT: Yes Changes since office visit: Yes Changes in Medication and Yes Patient answered all questions; No Cold of Flu in the past 2 weeks and No New Medical Problems The patient has been examined within 24 hours of the surgical procedure. The History & Physical has been completed within 30 days and I have reviewed it.: Yes Section B - Complete if H&P > 30 days Chief Complaint: Bipolar disorder depressed with psychotic features Allergies: Allergies Allergy/AdvReac Type Severity Reaction Status Date / Time bee pollen Allergy Severe Anaphylaxis Verified 01/25/22 15:16 levofloxacin [From Levaquin] Allergy Severe Itching Verified 01/25/22 15:16 enoxaparin [From Lovenox] Allergy Intermediate Rash Verified 01/25/22 15:16 Penicillins Allergy Unknown Unknown Verified 01/25/22 15:16 Seasonal Allergies Allergy Runny Nose Verified 01/25/22 15:16 venlafaxine [From Effexor] Allergy Constipatio Verified 01/25/22 15:16 n Plan I have reviewed the history and physical and performed a pertinent physical examination on my patient. No changes have occurred unless specified. Time Spent With Patient Time: Total time managing care of this patient today ____ minutes.
--- NOTE | 2023-12-14 07:50 | HO.ECTPROC ---
ECT Procedure Note Diagnosis/Treatment Date of Service: 12/14/23 Diagnosis: Bipolar disorder Previous ECT Date: 12/12/23 Current Treatment Number: 6 Treatment: Series Interval Clinical Notes: pt much improved responding to ect haldol 2.5 iv versed 2 mg would dec to 1 mg post etom dec to 12 mg Time: Total time managing care of this patient today ____ minutes. ECT Settings Device: THYMATRON DGx Electrode Placement: Bifrontal Medications Administration General Anesthetic: Etomidate (12) Muscle Relaxant: Succinylcholine (100) Ancillary Medications Anti-emetics: Zofran - Pre ECT Airway Management Airway Management: Bag Mask Ventilation Treatment Recommendations No Changes Recommended: No change Electrode Placement: Bifrontal
[2023-12-14] MEDS: Docusate Sodium 100 MG CAPSULE PO ×2 (09:29→20:46)
[2023-12-14] MEDS: Thiamine HCL 100 MG TABLET PO ×2 (09:29→20:46)
[2023-12-14] MEDS: Benztropine Mesylate 0.5 MG TABLET 0.25 MG PO ×2 (09:29→20:46)
--- NOTE | 2023-12-14 10:01 | P.PNPSI_ITS ---
Subjective Subjective Date of Service: 12/14/23 Reason For Visit: Bipolar disorder depressed with psychotic features Healthcare Proxy: Yes Review of Systems Patient much improved not psychotic future oriented significant benefit with electroconvulsive therapy ECT treatment completed today Mental Status Exam Mental Status Exam Narrative: Pt is alert and oriented; behavior is cooperative, friendly and calm; patient is not in distress; dressed in casual attire with adequate hygiene; mood is described as good and affect congruent; eye contact appropriate; Speech is normal rate, volume and prosody and not pressured; no psychomotor agitation/retardation present; thought process is organized and goal directed; Thought content is on tx; otherwise pertinent to relevant topics and without any delusional content, paranoid ideations or grandiosity; denies any SI/HI. There is no evidence of perceptual disturbance. Patients insight and judgment appear intact. Diagnostics Vital Signs (24Hr): Vital Signs - 24 hr 12/13/23 20:00 12/14/23 06:34 12/14/23 07:51 Temperature 97.2 F 97.7 F 97.7 F Pulse Rate 73 67 75 Respiratory Rate 18 16 21 H Blood Pressure 138/67 104/67 133/67 Pulse Oximetry 98 98 93 Oxygen Delivery Method Room Air Room Air Nasal Cannula with ETCO2 Oxygen Flow Rate 2 12/14/23 07:56 12/14/23 08:01 12/14/23 08:06 Temperature Pulse Rate 73 73 73 Respiratory Rate 17 17 17 Blood Pressure 105/58 L 109/61 100/58 L Pulse Oximetry 92 92 92 Oxygen Delivery Method Nasal Cannula with ETCO2 Nasal Cannula with ETCO2 Nasal Cannula with ETCO2 Oxygen Flow Rate 2 2 2 12/14/23 08:21 12/14/23 08:36 12/14/23 08:51 Temperature Pulse Rate 73 92 70 Respiratory Rate 15 17 16 Blood Pressure 103/60 99/61 130/71 Pulse Oximetry 93 98 95 Oxygen Delivery Method Nasal Cannula with ETCO2 Nasal Cannula with ETCO2 Room Air Oxygen Flow Rate 2 2 12/14/23 09:14 12/14/23 09:26 Temperature 97.6 F 96.8 F Pulse Rate 71 68 Respiratory Rate 17 18 Blood Pressure 124/72 143/72 H Pulse Oximetry 96 98 Oxygen Delivery Method Room Air Room Air Oxygen Flow Rate BMI result Body Mass Index 23.9 Labs 11/11/23 15:25 12/10/23 09:53 Medications Medications Current Medications Acetaminophen (Acetaminophen 325 Mg Tablet) 650 mg PO Q6H PRN PRN Reason: Headache/Pain Mild Scale (1-3) Last Admin: 12/04/23 06:43 Dose: 650 mg Al Hydroxide/Mg Hydroxide (Magnesium Hydrox/Alum Hydrox 30 Ml Oral.Susp) 30 ml PO Q6H PRN PRN Reason: Heartburn/Nausea Benztropine Mesylate (Benztropine Mesylate 0.5 Mg Tablet) 0.25 mg PO BID [facility] Last Admin: 12/14/23 09:29 Dose: 0.25 mg Cyclobenzaprine HCl (Cyclobenzaprine Hcl 10 Mg Tablet) 10 mg PO TID PRN PRN Reason: muscle spasm Docusate Sodium (Docusate Sodium 100 Mg Capsule) 100 mg PO BID [facility] Last Admin: 12/14/23 09:29 Dose: 100 mg Gabapentin (Gabapentin 300 Mg Capsule) 600 mg PO BEDTIME [facility] Last Admin: 12/13/23 20:04 Dose: 600 mg Hydroxyzine HCl (Hydroxyzine Hcl 25 Mg Tablet) 25 mg PO Q6H PRN PRN Reason: Anxiety Last Admin: 12/11/23 20:53 Dose: 25 mg Loratadine (Loratadine 10 Mg Tablet) 10 mg PO DAILY PRN PRN Reason: Allergy Symptoms Lorazepam (Lorazepam 1 Mg Tablet) 1 mg PO DAILY PRN PRN Reason: severe anxiety Magnesium Hydroxide (Milk Of Magnesia 30 Ml Oral.Susp) 30 ml PO DAILY PRN PRN Reason: Constipation Omeprazole (Omeprazole 20 Mg Capsule.Dr) 20 mg PO BID@0630,1630 [facility] Last Admin: 12/14/23 05:14 Dose: Not Given Paliperidone Palmitate (Paliperidone Palmitate 234 Mg/1.5 Ml Syringe) 234 mg IM Q30D [facility] Thiamine HCl (Thiamine Hcl 100 Mg Tablet) 100 mg PO BID [facility] Last Admin: 12/14/23 09:29 Dose: 100 mg Trazodone HCl (Trazodone Hcl 50 Mg Tablet) 50 mg PO BEDTIME MRX1 PRN PRN Reason: Insomnia Last Admin: 12/12/23 21:30 Dose: 50 mg Allergies Allergies Allergy/AdvReac Type Severity Reaction Status Date / Time bee pollen Allergy Severe Anaphylaxis Verified 01/25/22 15:16 levofloxacin [From Levaquin] Allergy Severe Itching Verified 01/25/22 15:16 enoxaparin [From Lovenox] Allergy Intermediate Rash Verified 01/25/22 15:16 Penicillins Allergy Unknown Unknown Verified 01/25/22 15:16 Seasonal Allergies Allergy Runny Nose Verified 01/25/22 15:16 venlafaxine [From Effexor] Allergy Constipatio Verified 01/25/22 15:16 n Assessment & Plan Assessment & Plan (1) Bipolar 1 disorder, depressed, severe: Status: Acute Code(s): F31.4 - Bipolar disorder, current episode depressed, severe, without psychotic features Assessment and Plan: 12/01: ECT to continue. One to one ordered for NPO times until after the treatment for added support and compliance. Plan Cardiac studies reviewed. Prior echocardiogram with LVEF 55-60% with no wall motion abnormalities and otherwise unremarkable. Myocardial perfusion imaging study shows a small area of mild intensity apical ischemia. Cardiac catheterization 2021 shows normal coronary arteries. Overall, no cardiac contraindications to proceed with ECT therapy. No clear explanation as to why she had a small troponin leak in the past after ECT. Possible coronary vasospasm from ECT? Cannot predict recurrence either. If clinically indicated, may pursue ECT therapy considering the above. At this moment the patient has enough criteria for ECT. Probably will need to rev paz her CV and filed for Section 7 and 8 since the patient is not compliant with medication grossly psychotic. But after discussing the case with her healthcare proxy and the legal team, on November 05 we are doing the paperwork to affirmed healthcare proxy. Encourage compliance with medication. On November 13 we got the information of the healthcare proxy we are going to start Invega Sustenna and discontinue Risperdal p.o. 11/16 Patient disorganized speech and behavior. Patient unable/unwilling to engage with race and sports book writer. Staff reports not eating; did drink about 480 cc of fluids; not taking medications -since has had very poor p.o. intake, will get some baseline labs if patient willing 11/17 Patient had just fallen asleep when race and sports book writer arrived and race and sports book writer decided it was in patient's best interest to remain sleeping as she remains too disorganized to engage and sleep is likely therapeutic; also she is on a one-to-one and staff able to provide information. Staff reports that patient did a little better today regarding that she drank about 700 cc of fluid and ate half a sandwich. She said to staff person that she wanted to and go to [facility]. Reviewed labs: Mildly elevated white count Lytes WNL BUN/creatinine grossly WNL LFTs WNL Plan 1. Continue with Invega Sustenna as per plan. 2. We will consider ECT if she fails to Invega. Invega Sustenna 234 mg IM 2nd shot on November 20. 3. Cogentin 0.25 mg p.o. b.i.d. to target EPS 4. We will contact the affirmed healthcare proxy to start ECT. ECT has improved her mental status. 5. Family meeting for next Sunday12/14/2023 ECT tolerated without difficulty continue plan of care will see if patient is able to do maintenance treatment Patient educated on: diagnosis Informed Consent: understands Reason for continued inpatient stay Substantial Risk for: inability to function, rapid decompensation and med/psych decompensation Time Spent With Patient Time: Total time managing care of this patient today ____ minutes.
[2023-12-14] MEDS: Omeprazole 20 MG CAPSULE.DR PO (16:09)
[2023-12-14] MEDS: Gabapentin 300 MG CAPSULE 600 MG PO (20:45)
[2023-12-14] MEDS: hydrOXYzine HCL 25 MG TABLET PO (20:46)
[2023-12-14] MEDS: traZODone HCL 50 MG TABLET PO (20:46)
[2023-12-15] MEDS: Omeprazole 20 MG CAPSULE.DR PO ×2 (06:26→16:40)
[2023-12-15 08:00] VITALS: BP 124/63; PULSE 77; RESP 16; TEMP 36.3; O2SAT 96
[2023-12-15] MEDS: Benztropine Mesylate 0.5 MG TABLET 0.25 MG PO ×2 (08:27→20:10)
[2023-12-15] MEDS: Docusate Sodium 100 MG CAPSULE PO ×2 (08:28→20:10)
[2023-12-15] MEDS: Thiamine HCL 100 MG TABLET PO ×2 (08:28→20:10)
--- NOTE | 2023-12-15 18:04 | P.PNPSI_ITS ---
Subjective Subjective Date of Service: 12/15/23 Reason For Visit: Bipolar disorder depressed with psychotic features Interim History: Met with patient; discussed with team Patient says she is good and that she is feeling much better. She says ECT has helped. Discussed process and she seems to be at treatment 5. Patient wondered whether not she should continue ECT or go home and how long ECT normally takes; senior grant writer discussed that it can sometimes go to 12 treatments but it depends for each patient. She agreed to continue with plan and discuss with primary team on Sunday. Otherwise no complaints, no requests. Mental Status Exam Mental Status Exam Narrative: Pt is alert and oriented; behavior is cooperative, friendly and calm; patient is not in distress; dressed in casual attire with adequate hygiene; mood is described as good and affect congruent; eye contact appropriate; Speech is normal rate, volume and prosody and not pressured; no psychomotor agitation/retardation present; thought process is organized and goal directed; Thought content is on tx; otherwise pertinent to relevant topics and without any delusional content, paranoid ideations or grandiosity; denies any SI/HI. There is no evidence of perceptual disturbance. Patients insight and judgment appear intact. Diagnostics Vital Signs (24Hr): Vital Signs - 24 hr 12/14/23 18:55 12/15/23 08:00 Temperature 96.4 F L 97.3 F Pulse Rate 78 77 Respiratory Rate 18 16 Blood Pressure 123/68 124/63 Pulse Oximetry 96 96 Oxygen Delivery Method Room Air Room Air BMI result Body Mass Index 23.9 Labs 11/11/23 15:25 12/10/23 09:53 Medications Medications Current Medications Acetaminophen (Acetaminophen 325 Mg Tablet) 650 mg PO Q6H PRN PRN Reason: Headache/Pain Mild Scale (1-3) Last Admin: 12/04/23 06:43 Dose: 650 mg Al Hydroxide/Mg Hydroxide (Magnesium Hydrox/Alum Hydrox 30 Ml Oral.Susp) 30 ml PO Q6H PRN PRN Reason: Heartburn/Nausea Benztropine Mesylate (Benztropine Mesylate 0.5 Mg Tablet) 0.25 mg PO BID [facility] Last Admin: 12/15/23 08:27 Dose: 0.25 mg Cyclobenzaprine HCl (Cyclobenzaprine Hcl 10 Mg Tablet) 10 mg PO TID PRN PRN Reason: muscle spasm Docusate Sodium (Docusate Sodium 100 Mg Capsule) 100 mg PO BID [facility] Last Admin: 12/15/23 08:28 Dose: 100 mg Gabapentin (Gabapentin 300 Mg Capsule) 600 mg PO BEDTIME [facility] Last Admin: 12/14/23 20:45 Dose: 600 mg Hydroxyzine HCl (Hydroxyzine Hcl 25 Mg Tablet) 25 mg PO Q6H PRN PRN Reason: Anxiety Last Admin: 12/14/23 20:46 Dose: 25 mg Loratadine (Loratadine 10 Mg Tablet) 10 mg PO DAILY PRN PRN Reason: Allergy Symptoms Magnesium Hydroxide (Milk Of Magnesia 30 Ml Oral.Susp) 30 ml PO DAILY PRN PRN Reason: Constipation Omeprazole (Omeprazole 20 Mg Capsule.Dr) 20 mg PO BID@0630,1630 [facility] Last Admin: 12/15/23 16:40 Dose: 20 mg Paliperidone Palmitate (Paliperidone Palmitate 234 Mg/1.5 Ml Syringe) 234 mg IM Q30D [facility] Thiamine HCl (Thiamine Hcl 100 Mg Tablet) 100 mg PO BID [facility] Last Admin: 12/15/23 08:28 Dose: 100 mg Trazodone HCl (Trazodone Hcl 50 Mg Tablet) 50 mg PO BEDTIME MRX1 PRN PRN Reason: Insomnia Last Admin: 12/14/23 20:46 Dose: 50 mg Allergies Allergies Allergy/AdvReac Type Severity Reaction Status Date / Time bee pollen Allergy Severe Anaphylaxis Verified 01/25/22 15:16 levofloxacin [From Levaquin] Allergy Severe Itching Verified 01/25/22 15:16 enoxaparin [From Lovenox] Allergy Intermediate Rash Verified 01/25/22 15:16 Penicillins Allergy Unknown Unknown Verified 01/25/22 15:16 Seasonal Allergies Allergy Runny Nose Verified 01/25/22 15:16 venlafaxine [From Effexor] Allergy Constipatio Verified 01/25/22 15:16 n Assessment & Plan Assessment & Plan (1) Bipolar 1 disorder, depressed, severe: Status: Acute Code(s): F31.4 - Bipolar disorder, current episode depressed, severe, without psychotic features Assessment and Plan: 12/01: ECT to continue. One to one ordered for NPO times until after the treatment for added support and compliance. Plan Cardiac studies reviewed. Prior echocardiogram with LVEF 55-60% with no wall motion abnormalities and otherwise unremarkable. Myocardial perfusion imaging study shows a small area of mild intensity apical ischemia. Cardiac catheterization 2021 shows normal coronary arteries. Overall, no cardiac contraindications to proceed with ECT therapy. No clear explanation as to why she had a small troponin leak in the past after ECT. Possible coronary vasospasm from ECT? Cannot predict recurrence either. If clinically indicated, may pursue ECT therapy considering the above. At this moment the patient has enough criteria for ECT. Probably will need to rev paz her CV and filed for Section 7 and 8 since the patient is not compliant with medication grossly psychotic. But after discussing the case with her healthcare proxy and the legal team, on November 05 we are doing the paperwork to affirmed healthcare proxy. Encourage compliance with medication. On November 13 we got the information of the healthcare proxy we are going to start Invega Sustenna and discontinue Risperdal p.o. 11/16 Patient disorganized speech and behavior. Patient unable/unwilling to engage with senior grant writer. Staff reports not eating; did drink about 480 cc of fluids; not taking medications -since has had very poor p.o. intake, will get some baseline labs if patient willing 11/17 Patient had just fallen asleep when senior grant writer arrived and senior grant writer decided it was in patient's best interest to remain sleeping as she remains too disorganized to engage and sleep is likely therapeutic; also she is on a one-to-one and staff able to provide information. Staff reports that patient did a little better today regarding that she drank about 700 cc of fluid and ate half a sandwich. She said to staff person that she wanted to and go to [facility]. Reviewed labs: Mildly elevated white count Lytes WNL BUN/creatinine grossly WNL LFTs WNL 12/14 patient reports good mood; ECT is helped. She is wondering how much longer to get ECT but will discuss further with primary team when they return Plan 1. Continue with Invega Sustenna as per plan. 2. We will consider ECT if she fails to Invega. Invega Sustenna 234 mg IM 2nd shot on November 20. 3. Cogentin 0.25 mg p.o. b.i.d. to target EPS 4. We will contact the affirmed healthcare proxy to start ECT. ECT has improved her mental status. 5. Family meeting for next Sunday Patient educated on: diagnosis and ECT Informed Consent: does not understand Reason for continued inpatient stay Substantial Risk for: med/psych decompensation Time Spent With Patient Time: Total time managing care of this patient today ____ minutes.
[2023-12-15 20:00] VITALS: BP 148/70; PULSE 81; TEMP 36.2; O2SAT 96
[2023-12-15] MEDS: Gabapentin 300 MG CAPSULE 600 MG PO (20:11)
[2023-12-16] MEDS: Omeprazole 20 MG CAPSULE.DR PO ×2 (05:36→15:58)
[2023-12-16] MEDS: Benztropine Mesylate 0.5 MG TABLET 0.25 MG PO ×2 (08:12→19:48)
[2023-12-16] MEDS: Thiamine HCL 100 MG TABLET PO ×2 (08:12→19:48)
[2023-12-16] MEDS: Docusate Sodium 100 MG CAPSULE PO ×2 (08:12→19:49)
[2023-12-16 08:19] VITALS: BP 113/67; PULSE 80; RESP 18; TEMP 36.9; O2SAT 96
--- NOTE | 2023-12-16 16:01 | HO.PSYCHPN ---
Subjective Subjective Date of Service: 12/16/23 Reason For Visit: Bipolar disorder depressed with psychotic features Interim History: Met with patient; discussed with team says's she's good and again discussed ECT willing to continue treatment. Intermittent irritability being on unit. Mental Status Exam Mental Status Exam Narrative: Pt is alert and oriented; behavior is cooperative, friendly and calm; patient is not in distress; dressed in casual attire with adequate hygiene; mood is described as good and affect congruent; eye contact appropriate; Speech is normal rate, volume and prosody and not pressured; no psychomotor agitation/retardation present; thought process is organized and goal directed; Thought content is on tx; otherwise pertinent to relevant topics and without any delusional content, paranoid ideations or grandiosity; denies any SI/HI. There is no evidence of perceptual disturbance. Patients insight and judgment appear intact. Diagnostics Vital Signs (24Hr): Vital Signs - 24 hr 12/15/23 20:00 12/16/23 08:19 Temperature 97.1 F 98.4 F Pulse Rate 81 80 Respiratory Rate 18 Blood Pressure 148/70 H 113/67 Pulse Oximetry 96 96 Oxygen Delivery Method Room Air Room Air BMI result Body Mass Index 23.9 Labs 11/11/23 15:25 12/10/23 09:53 Medications Medications Current Medications Acetaminophen (Acetaminophen 325 Mg Tablet) 650 mg PO Q6H PRN PRN Reason: Headache/Pain Mild Scale (1-3) Last Admin: 12/04/23 06:43 Dose: 650 mg Al Hydroxide/Mg Hydroxide (Magnesium Hydrox/Alum Hydrox 30 Ml Oral.Susp) 30 ml PO Q6H PRN PRN Reason: Heartburn/Nausea Benztropine Mesylate (Benztropine Mesylate 0.5 Mg Tablet) 0.25 mg PO BID [facility] Last Admin: 12/16/23 08:12 Dose: 0.25 mg Cyclobenzaprine HCl (Cyclobenzaprine Hcl 10 Mg Tablet) 10 mg PO TID PRN PRN Reason: muscle spasm Docusate Sodium (Docusate Sodium 100 Mg Capsule) 100 mg PO BID [facility] Last Admin: 12/16/23 08:12 Dose: 100 mg Gabapentin (Gabapentin 300 Mg Capsule) 600 mg PO BEDTIME [facility] Last Admin: 12/15/23 20:11 Dose: 600 mg Hydroxyzine HCl (Hydroxyzine Hcl 25 Mg Tablet) 25 mg PO Q6H PRN PRN Reason: Anxiety Last Admin: 12/14/23 20:46 Dose: 25 mg Loratadine (Loratadine 10 Mg Tablet) 10 mg PO DAILY PRN PRN Reason: Allergy Symptoms Magnesium Hydroxide (Milk Of Magnesia 30 Ml Oral.Susp) 30 ml PO DAILY PRN PRN Reason: Constipation Omeprazole (Omeprazole 20 Mg Capsule.Dr) 20 mg PO BID@0630,1630 [facility] Last Admin: 12/16/23 15:58 Dose: 20 mg Paliperidone Palmitate (Paliperidone Palmitate 234 Mg/1.5 Ml Syringe) 234 mg IM Q30D [facility] Thiamine HCl (Thiamine Hcl 100 Mg Tablet) 100 mg PO BID [facility] Last Admin: 12/16/23 08:12 Dose: 100 mg Trazodone HCl (Trazodone Hcl 50 Mg Tablet) 50 mg PO BEDTIME MRX1 PRN PRN Reason: Insomnia Last Admin: 12/14/23 20:46 Dose: 50 mg Allergies Allergies Allergy/AdvReac Type Severity Reaction Status Date / Time bee pollen Allergy Severe Anaphylaxis Verified 01/25/22 15:16 levofloxacin [From Levaquin] Allergy Severe Itching Verified 01/25/22 15:16 enoxaparin [From Lovenox] Allergy Intermediate Rash Verified 01/25/22 15:16 Penicillins Allergy Unknown Unknown Verified 01/25/22 15:16 Seasonal Allergies Allergy Runny Nose Verified 01/25/22 15:16 venlafaxine [From Effexor] Allergy Constipatio Verified 01/25/22 15:16 n Assessment & Plan Assessment & Plan (1) Bipolar 1 disorder, depressed, severe: Status: Acute Code(s): F31.4 - Bipolar disorder, current episode depressed, severe, without psychotic features Assessment and Plan: 12/01: ECT to continue. One to one ordered for NPO times until after the treatment for added support and compliance. Plan Cardiac studies reviewed. Prior echocardiogram with LVEF 55-60% with no wall motion abnormalities and otherwise unremarkable. Myocardial perfusion imaging study shows a small area of mild intensity apical ischemia. Cardiac catheterization 2021 shows normal coronary arteries. Overall, no cardiac contraindications to proceed with ECT therapy. No clear explanation as to why she had a small troponin leak in the past after ECT. Possible coronary vasospasm from ECT? Cannot predict recurrence either. If clinically indicated, may pursue ECT therapy considering the above. At this moment the patient has enough criteria for ECT. Probably will need to rev paz her CV and filed for Section 7 and 8 since the patient is not compliant with medication grossly psychotic. But after discussing the case with her healthcare proxy and the legal team, on November 05 we are doing the paperwork to affirmed healthcare proxy. Encourage compliance with medication. On November 13 we got the information of the healthcare proxy we are going to start Invega Sustenna and discontinue Risperdal p.o. 11/16 Patient disorganized speech and behavior. Patient unable/unwilling to engage with residential mortgage underwriter. Staff reports not eating; did drink about 480 cc of fluids; not taking medications -since has had very poor p.o. intake, will get some baseline labs if patient willing 11/17 Patient had just fallen asleep when residential mortgage underwriter arrived and residential mortgage underwriter decided it was in patient's best interest to remain sleeping as she remains too disorganized to engage and sleep is likely therapeutic; also she is on a one-to-one and staff able to provide information. Staff reports that patient did a little better today regarding that she drank about 700 cc of fluid and ate half a sandwich. She said to staff person that she wanted to and go to [facility]. Reviewed labs: Mildly elevated white count Lytes WNL BUN/creatinine grossly WNL LFTs WNL 12/14 patient reports good mood; ECT is helped. She is wondering how much longer to get ECT but will discuss further with primary team when they return 12/15 continue tx; ECT tomorrow Plan 1. Continue with Invega Sustenna as per plan. 2. We will consider ECT if she fails to Invega. Invega Sustenna 234 mg IM 2nd shot on November 20. 3. Cogentin 0.25 mg p.o. b.i.d. to target EPS 4. We will contact the affirmed healthcare proxy to start ECT. ECT has improved her mental status. 5. Family meeting for next Sunday Patient educated on: diagnosis and ECT Informed Consent: understands Reason for continued inpatient stay Substantial Risk for: rapid decompensation Time Spent With Patient Time: Total time managing care of this patient today ____ minutes.
[2023-12-16] MEDS: Gabapentin 300 MG CAPSULE 600 MG PO (19:48)
[2023-12-16 19:54] VITALS: BP 127/78; PULSE 73; RESP 16; TEMP 36.6; O2SAT 97
[2023-12-16] MEDS: traZODone HCL 50 MG TABLET PO (23:09)
[2023-12-17] VITALS (8 sets, daily range): BP systolic 112–145; BP diastolic 65–85; PULSE 76–94; RESP 14–16; TEMP 36.6–37.1; O2SAT 93–97
--- NOTE | 2023-12-17 06:39 | P.CONAN_ITS ---
[facility] Active Problems Active Problems: All Active Problems Preoperative cardiovascular examination (Acute) Pre-op evaluation (Acute) Medical clearance for psychiatric admission (Acute) Bipolar 1 disorder, depressed, severe (Acute) Elevated troponin (Acute) Chest discomfort (Acute) S/P cardiac catheterization (Acute) Bipolar 1 disorder (Acute) Varus deformity of knee (Acute) Osteoarthritis of left knee (Acute) Anxiety (Acute) GERD (gastroesophageal reflux disease) (Acute) Insomnia (Acute) Osteopenia (Acute) Murmur, cardiac (Acute) Status post total knee replacement, left (Acute) Acute deep vein thrombosis (DVT) of left tibial vein (Chronic) Past Medical History Medical History History of skin cancer Hx of bladder problems VITO (generalized anxiety disorder) Murmur, cardiac Hx of thyroid nodule Osteopenia Hx of skin cancer, basal cell Seasonal allergies Insomnia Constipation GERD (gastroesophageal reflux disease) Anxiety History of electroconvulsive therapy Bipolar 1 disorder Family History Family History Mother Basal cell carcinoma (BCC) in situ of skin Osteoporosis Hyperlipidemia Father CAD (coronary artery disease) Alcoholism Sister Osteoporosis Depression Brother Cancer of tongue Cancer of skin Family history of problems with anesthesia: No Surgical History Surgical History Hx of colonoscopy H/O elbow surgery History of back surgery History of Problems with Anesthesia: No Social History Social History Household Members: None Housing: Apartment Are you a primary home care coordinator to a significant other at home: No Do you presently have visiting nurse or other home services: Yes Unable to assess alcohol history related to: Unable to respond Comment: 1:1 suoervision Patient Tobacco Use Status: Former Tobacco user Tobacco use type: Cigarette Years Smoked: 30+, now vapes Smoked in Last 30 Days: No e-Cigarette/Vaping Use: Former Use Patient Interested in Nicotine Replacement: Yes Patient Given Instructions on How to Stop Smoking: Yes Date Education Initiated: 11/01/23 Second Hand Smoke Exposure: No Use of substances other than those prescribed or required for medical reasons: Yes Substance Use Type: Crack/Cocaine Last Used Substance: Unknown Currently Displaying Signs/Symptoms of Drug Intoxication Withdrawal: No Any prior treatment program specific to substance use: No Have you been hit, kicked, punched, or otherwise hurt by someone within the past year? If so, by whom?: No Do you feel safe in your current relationship?: Yes Is there a partner from a previous relationship who is making you feel unsafe now?: No Are you made to feel afraid or neglected: No Worship Healthcare Practices: mormon Advance Directives: No Advance Directives Information Provided: No Do you have thoughts of harming others: None Do you have a plan to hurt others: No Plan Recently lost weight without trying: Yes How much weight loss: 14-23 pounds Eating poorly because of decreased appetite: Yes Nutrition screen score: 5 Nutrition Risks: Dental problems and Poor intake 0-25% >4 days Patient : No : No Poor oral hygiene: No service: No Current occupational status: unemployed and retired 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 presenting disorganized behavior when being interviewed. Meds Allergies Allergy/AdvReac Type Severity Reaction Status Date / Time bee pollen Allergy Severe Anaphylaxis Verified 01/25/22 15:16 levofloxacin [From Levaquin] Allergy Severe Itching Verified 01/25/22 15:16 enoxaparin [From Lovenox] Allergy Intermediate Rash Verified 01/25/22 15:16 Penicillins Allergy Unknown Unknown Verified 01/25/22 15:16 Seasonal Allergies Allergy Runny Nose Verified 01/25/22 15:16 venlafaxine [From Effexor] Allergy Constipatio Verified 01/25/22 15:16 n Active Medications: Current Medications Acetaminophen (Acetaminophen 325 Mg Tablet) 650 mg PO Q6H PRN PRN Reason: Headache/Pain Mild Scale (1-3) Last Admin: 12/04/23 06:43 Dose: 650 mg Al Hydroxide/Mg Hydroxide (Magnesium Hydrox/Alum Hydrox 30 Ml Oral.Susp) 30 ml PO Q6H PRN PRN Reason: Heartburn/Nausea Benztropine Mesylate (Benztropine Mesylate 0.5 Mg Tablet) 0.25 mg PO BID [facility] Last Admin: 12/16/23 19:48 Dose: 0.25 mg Cyclobenzaprine HCl (Cyclobenzaprine Hcl 10 Mg Tablet) 10 mg PO TID PRN PRN Reason: muscle spasm Docusate Sodium (Docusate Sodium 100 Mg Capsule) 100 mg PO BID [facility] Last Admin: 12/16/23 19:49 Dose: 100 mg Gabapentin (Gabapentin 300 Mg Capsule) 600 mg PO BEDTIME [facility] Last Admin: 12/16/23 19:48 Dose: 600 mg Hydroxyzine HCl (Hydroxyzine Hcl 25 Mg Tablet) 25 mg PO Q6H PRN PRN Reason: Anxiety Last Admin: 12/14/23 20:46 Dose: 25 mg Loratadine (Loratadine 10 Mg Tablet) 10 mg PO DAILY PRN PRN Reason: Allergy Symptoms Magnesium Hydroxide (Milk Of Magnesia 30 Ml Oral.Susp) 30 ml PO DAILY PRN PRN Reason: Constipation Omeprazole (Omeprazole 20 Mg Capsule.Dr) 20 mg PO BID@0630,1630 [facility] Last Admin: 12/17/23 05:25 Dose: Not Given Paliperidone Palmitate (Paliperidone Palmitate 234 Mg/1.5 Ml Syringe) 234 mg IM Q30D [facility] Thiamine HCl (Thiamine Hcl 100 Mg Tablet) 100 mg PO BID [facility] Last Admin: 12/16/23 19:48 Dose: 100 mg Trazodone HCl (Trazodone Hcl 50 Mg Tablet) 50 mg PO BEDTIME MRX1 PRN PRN Reason: Insomnia Last Admin: 12/16/23 23:09 Dose: 50 mg Home Medications ?Medication ?Instructions ?Recorded ?Confirmed ?Last Taken ?Type omeprazole 20 mg capsule,delayed 20 mg PO BID 05/09/21 11/01/23 08/09/21 History release docusate sodium 100 mg capsule 1 cap PO BID 07/21/21 11/01/23 Unknown History loratadine 10 mg tablet (Claritin) 10 mg PO DAILY PRN Allergy Symptoms 07/21/21 11/01/23 Unknown History acetaminophen 325 mg tablet 650 mg PO Q6H PRN Fever Or Pain 09/08/21 11/01/23 10/29/23 14:05 History gabapentin 400 mg capsule 1,200 mg PO BEDTIME 01/25/22 11/01/23 10/31/23 19:37 History citalopram 20 mg tablet 20 mg PO DAILY 11/01/23 11/01/23 Unknown History cyclobenzaprine 10 mg tablet 10 mg PO TID PRN muscle spasm 11/01/23 11/01/23 Unknown History eszopiclone 3 mg tablet 3 mg PO BEDTIME 11/01/23 11/01/23 Unknown History ibuprofen 600 mg tablet 600 mg PO TID 11/01/23 11/01/23 10/31/23 14:26 History lorazepam 2 mg tablet 2 mg PO TID 11/01/23 11/01/23 11/01/23 14:00 History oxycodone 5 mg capsule 2.5 mg PO Q8H PRN Severe Pain 11/01/23 11/01/23 Unknown History (Scale Score 7-10) quetiapine 400 mg tablet 800 mg PO BEDTIME 11/01/23 11/01/23 Unknown History Exam Height,Weight and Vital Signs: Height 5 ft 6 in Weight 67.041 kg Last Vital Signs Temp 98.8 F 12/17/23 06:25 Pulse 76 12/17/23 06:25 Resp 16 12/17/23 06:25 BP 115/70 12/17/23 06:25 Pulse Ox 96 12/17/23 06:25 O2 Del Method Room Air 12/17/23 06:25 O2 Flow Rate 2 12/14/23 08:36 Pertinent Lab Results Pertinent Lab Results: Laboratory Tests 11/11/23 11/17/23 12/10/23 15:25 19:20 09:53 WBC 12.4 H RBC 4.04 L Hgb 12.4 Hct 36.0 L MCV 89.1 MCH 30.7 MCHC 34.4 RDW 12.8 Plt Count 249 MPV 9.1 L Immature Gran % (Auto) 0.6 H Neut % (Auto) 71.6 Lymph % (Auto) 13.2 L [place] % (Auto) 14.0 H Eos % (Auto) 0.3 Baso % (Auto) 0.3 Lymph # (Auto) 1.6 [place] # (Auto) 1.7 H Eos # (Auto) 0.0 Baso # (Auto) 0.0 Abs Immat Gran (auto) 0.08 H Absolute Neuts (auto) 8.9 H Absolute Nucleated RBC 0.000 Nucleated RBC % (auto) 0.0 Smear Tech's Comments VERIFIED Sodium 141 136 Potassium 3.4 3.4 Chloride 105 103 Carbon Dioxide 22 22 Anion Gap 17 14 BUN 27 H 22 H Creatinine 0.77 0.84 0.71 Estim Creat Clear Calc 67.2 61.1 72.9 Estimated GFR > 60 > 60 > 60 Random Glucose 65 166 H Calcium 9.5 9.6 Total Bilirubin 0.2 0.3 AST 23 22 ALT 29 24 Alkaline Phosphatase 106 104 Total Protein 6.5 7.1 Albumin 3.8 4.2 Airway Mallampati Class: II TM Dist: >3cm Neck ROM: Full Partial: Upper and Lower Heart: rrr Lungs: cta Assessment and Plan Assessment Anesthesia Assessment: Anesthesia Plan Discussed and Chart Reviewed Final Anesthetic Review Family History of Problems with Anesthesia: No History of Problems with Anesthesia: No NPO: Yes ASA Class: III Final Preanesthetic Review: No Changes in Pt Med Stat, Meds/Allgs Chart Reviewed and Consent Obtained/Reviewed Patient Risk: Intermediate Procedure Risk: Intermediate Anesthetic Plan Anesthetic Plan: GA Disposition: Standard PACU
[2023-12-17] MEDS: Lactated Ringers 1,000 ML 50 ML IVCONT (06:41)
--- NOTE | 2023-12-17 06:51 | MHC.SHP ---
Pre-Procedural Eval Section A - 24 Hr Update-Section A only Date of Service: 12/17/23 The patient is an INPATIENT: Yes Changes since office visit: No Cold of Flu in the past 2 weeks, No New Medical Problems, No Changes in Medication and No Patient answered all questions The patient has been examined within 24 hours of the surgical procedure. The History & Physical has been completed within 30 days and I have reviewed it.: Yes Section B - Complete if H&P > 30 days Chief Complaint: Bipolar disorder depressed with psychotic features Allergies: Allergies Allergy/AdvReac Type Severity Reaction Status Date / Time bee pollen Allergy Severe Anaphylaxis Verified 01/25/22 15:16 levofloxacin [From Levaquin] Allergy Severe Itching Verified 01/25/22 15:16 enoxaparin [From Lovenox] Allergy Intermediate Rash Verified 01/25/22 15:16 Penicillins Allergy Unknown Unknown Verified 01/25/22 15:16 Seasonal Allergies Allergy Runny Nose Verified 01/25/22 15:16 venlafaxine [From Effexor] Allergy Constipatio Verified 01/25/22 15:16 n Plan I have reviewed the history and physical and performed a pertinent physical examination on my patient. No changes have occurred unless specified. Time Spent With Patient Time: Total time managing care of this patient today ____ minutes.
[2023-12-17] MEDS: Haloperidol Lactate 5 MG/ML VIAL 2.5 MG IVPUSH (07:09)
--- NOTE | 2023-12-17 07:11 | HO.ECTPROC ---
ECT Procedure Note Diagnosis/Treatment Date of Service: 12/17/23 Diagnosis: Bipolar disorder and Catatonia Previous ECT Date: 12/14/23 Current Treatment Number: 7 Treatment: Series Interval Clinical Notes: The patient reported feeling much better, no evidence of catatonia. No side effects with the previous ECT. ECT done as usual, no complications. We ordered Haldol 2.5 mg IVP and Versed 2 as per protocol. Time: Total time managing care of this patient today __30__ minutes. ECT Settings Device: THYMATRON DGx Electrode Placement: Bifrontal Program/Pulse Width: 0.50 Energy Percent: 100 Seizure Duration By EEG (in seconds): 38 By Motor Observation (in seconds): 21 Medications Administration General Anesthetic: Etomidate (12) Muscle Relaxant: Succinylcholine (100) Ancillary Medications Analgesics: Torodol - Pre ECT Anti-emetics: Zofran - Pre ECT Miscillaneous Medications: Midazolam and Haldol (2.5 mg IVP) Airway Management Airway Management: Bag Mask Ventilation Treatment Recommendations No Changes Recommended: No change Pt Tolerated Procedure w/o Issue: Yes
[2023-12-17] MEDS: Omeprazole 20 MG CAPSULE.DR PO ×2 (08:47→16:29)
[2023-12-17] MEDS: Docusate Sodium 100 MG CAPSULE PO ×2 (08:47→20:01)
[2023-12-17] MEDS: Thiamine HCL 100 MG TABLET PO ×2 (08:48→20:02)
[2023-12-17] MEDS: Benztropine Mesylate 0.5 MG TABLET 0.25 MG PO ×2 (08:48→20:01)
--- NOTE | 2023-12-17 12:39 | HO.PSYCHPN ---
Subjective Subjective Date of Service: 12/17/23 Reason For Visit: Bipolar disorder depressed with psychotic features Subjective Notes: Conditional Voluntary Interim History: The nursing staff reported the patient denies anxiety or depression she had been eating well been medication compliant. Today we had ECT without any problems. Today we had a family meeting 13:00 with the certified social workers in health care and her sister regarding disposition and discharge planning. The family is very worried about relapse and poor functionality of the patient. The occupational therapist did a Elberta test and she scored 15/30 and an Darren test over 4.2. 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 On interview the patient denies new symptoms she feels ready to be discharged. Mental Status Exam Mental Status Exam Patient Appearance: Appropriate Patient Orientation: Person and Situation Level of Consciousness: Awake and Appropriate Patient Behavior: Guarded and Passive Mood Description: Withdrawn Affect Description: Constricted Patient Cognition Impaired: Yes Ability to Follow Directions: Good Speech Pattern: Clear Hallucinations: None Delusions: Not Present Thought Process: Slowed Thinking Thought Content: positive for [place] and positive for Circumstantial Judgement: Fair Diagnostics Vital Signs (24Hr): Vital Signs - 24 hr 12/16/23 19:54 12/17/23 05:41 12/17/23 06:25 Temperature 98 F 98.7 F 98.8 F Pulse Rate 73 79 76 Respiratory Rate 16 14 16 Blood Pressure 127/78 112/65 115/70 Pulse Oximetry 97 96 Oxygen Delivery Method Room Air Room Air Oxygen Flow Rate 12/17/23 07:11 12/17/23 07:16 12/17/23 07:20 Temperature 98.2 F Pulse Rate 79 94 92 Respiratory Rate 14 16 16 Blood Pressure 129/76 145/85 H 136/80 Pulse Oximetry 93 96 96 Oxygen Delivery Method Nasal Cannula with ETCO2 Nasal Cannula with ETCO2 Nasal Cannula with ETCO2 Oxygen Flow Rate 2 2 2 12/17/23 07:25 12/17/23 07:40 Temperature 98.5 F Pulse Rate 91 76 Respiratory Rate 16 16 Blood Pressure 122/76 129/68 Pulse Oximetry 94 95 Oxygen Delivery Method Room Air Nasal Cannula with ETCO2 Room Air Oxygen Flow Rate BMI result Body Mass Index 23.9 Labs 11/11/23 15:25 12/10/23 09:53 Medications Medications Current Medications Acetaminophen (Acetaminophen 325 Mg Tablet) 650 mg PO Q6H PRN PRN Reason: Headache/Pain Mild Scale (1-3) Last Admin: 12/04/23 06:43 Dose: 650 mg Al Hydroxide/Mg Hydroxide (Magnesium Hydrox/Alum Hydrox 30 Ml Oral.Susp) 30 ml PO Q6H PRN PRN Reason: Heartburn/Nausea Benztropine Mesylate (Benztropine Mesylate 0.5 Mg Tablet) 0.25 mg PO BID [facility] Last Admin: 12/17/23 08:48 Dose: 0.25 mg Cyclobenzaprine HCl (Cyclobenzaprine Hcl 10 Mg Tablet) 10 mg PO TID PRN PRN Reason: muscle spasm Docusate Sodium (Docusate Sodium 100 Mg Capsule) 100 mg PO BID [facility] Last Admin: 12/17/23 08:47 Dose: 100 mg Gabapentin (Gabapentin 300 Mg Capsule) 600 mg PO BEDTIME [facility] Last Admin: 12/16/23 19:48 Dose: 600 mg Hydroxyzine HCl (Hydroxyzine Hcl 25 Mg Tablet) 25 mg PO Q6H PRN PRN Reason: Anxiety Last Admin: 12/14/23 20:46 Dose: 25 mg Loratadine (Loratadine 10 Mg Tablet) 10 mg PO DAILY PRN PRN Reason: Allergy Symptoms Magnesium Hydroxide (Milk Of Magnesia 30 Ml Oral.Susp) 30 ml PO DAILY PRN PRN Reason: Constipation Omeprazole (Omeprazole 20 Mg Capsule.Dr) 20 mg PO BID@0630,1630 [facility] Last Admin: 12/17/23 08:47 Dose: 20 mg Paliperidone Palmitate (Paliperidone Palmitate 234 Mg/1.5 Ml Syringe) 234 mg IM Q30D [facility] Thiamine HCl (Thiamine Hcl 100 Mg Tablet) 100 mg PO BID [facility] Last Admin: 12/17/23 08:48 Dose: 100 mg Trazodone HCl (Trazodone Hcl 50 Mg Tablet) 50 mg PO BEDTIME MRX1 PRN PRN Reason: Insomnia Last Admin: 12/16/23 23:09 Dose: 50 mg Allergies Allergies Allergy/AdvReac Type Severity Reaction Status Date / Time bee pollen Allergy Severe Anaphylaxis Verified 01/25/22 15:16 levofloxacin [From Levaquin] Allergy Severe Itching Verified 01/25/22 15:16 enoxaparin [From Lovenox] Allergy Intermediate Rash Verified 01/25/22 15:16 Penicillins Allergy Unknown Unknown Verified 01/25/22 15:16 Seasonal Allergies Allergy Runny Nose Verified 01/25/22 15:16 venlafaxine [From Effexor] Allergy Constipatio Verified 01/25/22 15:16 n Assessment & Plan Assessment & Plan (1) Bipolar 1 disorder, depressed, severe: Status: Acute Code(s): F31.4 - Bipolar disorder, current episode depressed, severe, without psychotic features Assessment and Plan: 12/01: ECT to continue. One to one ordered for NPO times until after the treatment for added support and compliance. Plan Cardiac studies reviewed. Prior echocardiogram with LVEF 55-60% with no wall motion abnormalities and otherwise unremarkable. Myocardial perfusion imaging study shows a small area of mild intensity apical ischemia. Cardiac catheterization 2021 shows normal coronary arteries. Overall, no cardiac contraindications to proceed with ECT therapy. No clear explanation as to why she had a small troponin leak in the past after ECT. Possible coronary vasospasm from ECT? Cannot predict recurrence either. If clinically indicated, may pursue ECT therapy considering the above. At this moment the patient has enough criteria for ECT. Probably will need to rev paz her CV and filed for Section 7 and 8 since the patient is not compliant with medication grossly psychotic. But after discussing the case with her healthcare proxy and the legal team, on November 05 we are doing the paperwork to affirmed healthcare proxy. Encourage compliance with medication. On November 13 we got the information of the healthcare proxy we are going to start Invega Sustenna and discontinue Risperdal p.o. 11/16 Patient disorganized speech and behavior. Patient unable/unwilling to engage with travel writer. Staff reports not eating; did drink about 480 cc of fluids; not taking medications -since has had very poor p.o. intake, will get some baseline labs if patient willing 11/17 Patient had just fallen asleep when travel writer arrived and travel writer decided it was in patient's best interest to remain sleeping as she remains too disorganized to engage and sleep is likely therapeutic; also she is on a one-to-one and staff able to provide information. Staff reports that patient did a little better today regarding that she drank about 700 cc of fluid and ate half a sandwich. She said to staff person that she wanted to and go to [facility]. Reviewed labs: Mildly elevated white count Lytes WNL BUN/creatinine grossly WNL LFTs WNL 12/14 patient reports good mood; ECT is helped. She is wondering how much longer to get ECT but will discuss further with primary team when they return 12/15 continue tx; ECT tomorrow Plan 1. Continue with Invega Sustenna as per plan. 2. We will consider ECT if she fails to Invega. Invega Sustenna 234 mg IM 2nd shot on November 20. 3. Cogentin 0.25 mg p.o. b.i.d. to target EPS 4. We will contact the affirmed healthcare proxy to start ECT. ECT has improved her mental status. 5. Family meeting for today with her sister who is the affirmed healthcare proxy. Reason for continued inpatient stay Substantial Risk for: inability to function, rapid decompensation and med/psych decompensation Time Spent With Patient Time: Total time managing care of this patient today __20__ minutes.
[2023-12-17] MEDS: Gabapentin 300 MG CAPSULE 600 MG PO (20:02)
[2023-12-17] MEDS: traZODone HCL 50 MG TABLET PO (22:14)
[2023-12-18] MEDS: Omeprazole 20 MG CAPSULE.DR PO ×2 (05:32→16:58)
[2023-12-18 08:00] VITALS: BP 124/72; PULSE 74; RESP 18; TEMP 36.4; O2SAT 98
[2023-12-18] MEDS: Benztropine Mesylate 0.5 MG TABLET 0.25 MG PO ×2 (08:25→19:59)
[2023-12-18] MEDS: Docusate Sodium 100 MG CAPSULE PO ×2 (08:26→19:59)
[2023-12-18] MEDS: Thiamine HCL 100 MG TABLET PO ×2 (08:26→19:59)
--- NOTE | 2023-12-18 08:41 | HO.POSTANES ---
Post Anesthesia Evaluation Post Anesthesia Evaluation Date of Service: 12/19/23 Vital Signs: Vital Signs Temp Pulse Resp BP Pulse Ox O2 Del Method 12/18/23 08:00 97.6 F 74 18 124/72 98 Room Air Anesthesia: General Mental Status: Awake Pain Control: Satisfactory Nausea/Vomiting: None Hydration: Adequate Anesthesia-Related Issues: No Anes. Related Issues
--- NOTE | 2023-12-18 12:44 | P.PNPSI_ITS ---
Subjective Subjective Date of Service: 12/18/23 Reason For Visit: Bipolar disorder depressed with psychotic features Subjective Notes: Conditional Voluntary Interim History: The nursing staff reported the patient showered yesterday she had been eating well. The social contact worker reported the meeting with her siblings went well they are very overwhelmed and exhausted due to the noncompliance of the patient. Apparently [facility] could offer the services transportation for ECT in the community but we will figure it out. On interview the patient denies new symptoms she looks disinhibited at times but much better. Mental Status Exam Mental Status Exam Patient Appearance: Appropriate Patient Orientation: Person and Situation Level of Consciousness: Awake and Appropriate Patient Behavior: Guarded and Passive Mood Description: Cheerful Affect Description: Labile Patient Cognition Impaired: Yes Ability to Follow Directions: Good Speech Pattern: Clear Hallucinations: None Delusions: Not Present Thought Process: Distracted and Evasive Thought Content: positive for Circumstantial Judgement: Fair Diagnostics Vital Signs (24Hr): Vital Signs - 24 hr 12/17/23 20:00 12/18/23 08:00 Temperature 97.8 F 97.6 F Pulse Rate 81 74 Respiratory Rate 14 18 Blood Pressure 140/76 H 124/72 Pulse Oximetry 97 98 Oxygen Delivery Method Room Air Room Air BMI result Body Mass Index 23.9 Labs 11/11/23 15:25 12/10/23 09:53 Medications Medications Current Medications Acetaminophen (Acetaminophen 325 Mg Tablet) 650 mg PO Q6H PRN PRN Reason: Headache/Pain Mild Scale (1-3) Last Admin: 12/04/23 06:43 Dose: 650 mg Al Hydroxide/Mg Hydroxide (Magnesium Hydrox/Alum Hydrox 30 Ml Oral.Susp) 30 ml PO Q6H PRN PRN Reason: Heartburn/Nausea Benztropine Mesylate (Benztropine Mesylate 0.5 Mg Tablet) 0.25 mg PO BID [facility] Last Admin: 12/18/23 08:25 Dose: 0.25 mg Cyclobenzaprine HCl (Cyclobenzaprine Hcl 10 Mg Tablet) 10 mg PO TID PRN PRN Reason: muscle spasm Docusate Sodium (Docusate Sodium 100 Mg Capsule) 100 mg PO BID [facility] Last Admin: 12/18/23 08:26 Dose: 100 mg Gabapentin (Gabapentin 300 Mg Capsule) 600 mg PO BEDTIME [facility] Last Admin: 12/17/23 20:02 Dose: 600 mg Hydroxyzine HCl (Hydroxyzine Hcl 25 Mg Tablet) 25 mg PO Q6H PRN PRN Reason: Anxiety Last Admin: 12/14/23 20:46 Dose: 25 mg Loratadine (Loratadine 10 Mg Tablet) 10 mg PO DAILY PRN PRN Reason: Allergy Symptoms Magnesium Hydroxide (Milk Of Magnesia 30 Ml Oral.Susp) 30 ml PO DAILY PRN PRN Reason: Constipation Omeprazole (Omeprazole 20 Mg Capsule.Dr) 20 mg PO BID@0630,1630 [facility] Last Admin: 12/18/23 05:32 Dose: 20 mg Paliperidone Palmitate (Paliperidone Palmitate 234 Mg/1.5 Ml Syringe) 234 mg IM Q30D [facility] Thiamine HCl (Thiamine Hcl 100 Mg Tablet) 100 mg PO BID [facility] Last Admin: 12/18/23 08:26 Dose: 100 mg Trazodone HCl (Trazodone Hcl 50 Mg Tablet) 50 mg PO BEDTIME MRX1 PRN PRN Reason: Insomnia Last Admin: 12/17/23 22:14 Dose: 50 mg Allergies Allergies Allergy/AdvReac Type Severity Reaction Status Date / Time bee pollen Allergy Severe Anaphylaxis Verified 01/25/22 15:16 levofloxacin [From Levaquin] Allergy Severe Itching Verified 01/25/22 15:16 enoxaparin [From Lovenox] Allergy Intermediate Rash Verified 01/25/22 15:16 Penicillins Allergy Unknown Unknown Verified 01/25/22 15:16 Seasonal Allergies Allergy Runny Nose Verified 01/25/22 15:16 venlafaxine [From Effexor] Allergy Constipatio Verified 01/25/22 15:16 n Assessment & Plan Assessment & Plan (1) Bipolar 1 disorder, depressed, severe: Status: Acute Code(s): F31.4 - Bipolar disorder, current episode depressed, severe, without psychotic features Assessment and Plan: 12/01: ECT to continue. One to one ordered for NPO times until after the treatment for added support and compliance. Plan Cardiac studies reviewed. Prior echocardiogram with LVEF 55-60% with no wall motion abnormalities and otherwise unremarkable. Myocardial perfusion imaging study shows a small area of mild intensity apical ischemia. Cardiac catheterization 2021 shows normal coronary arteries. Overall, no cardiac contraindications to proceed with ECT therapy. No clear explanation as to why she had a small troponin leak in the past after ECT. Possible coronary vasospasm from ECT? Cannot predict recurrence either. If clinically indicated, may pursue ECT therapy considering the above. At this moment the patient has enough criteria for ECT. Probably will need to rev paz her CV and filed for Section 7 and 8 since the patient is not compliant with medication grossly psychotic. But after discussing the case with her healthcare proxy and the legal team, on November 05 we are doing the paperwork to affirmed healthcare proxy. Encourage compliance with medication. On November 13 we got the information of the healthcare proxy we are going to start Invega Sustenna and discontinue Risperdal p.o. 11/16 Patient disorganized speech and behavior. Patient unable/unwilling to engage with senior medical writer. Staff reports not eating; did drink about 480 cc of fluids; not taking medications -since has had very poor p.o. intake, will get some baseline labs if patient willing 11/17 Patient had just fallen asleep when senior medical writer arrived and senior medical writer decided it was in patient's best interest to remain sleeping as she remains too disorganized to engage and sleep is likely therapeutic; also she is on a one-to-one and staff able to provide information. Staff reports that patient did a little better today regarding that she drank about 700 cc of fluid and ate half a sandwich. She said to staff person that she wanted to and go to [facility]. Reviewed labs: Mildly elevated white count Lytes WNL BUN/creatinine grossly WNL LFTs WNL 12/14 patient reports good mood; ECT is helped. She is wondering how much longer to get ECT but will discuss further with primary team when they return 12/15 continue tx; ECT tomorrow Plan 1. Continue with Invega Sustenna as per plan. 2. We will consider ECT if she fails to Invega. Invega Sustenna 234 mg IM 2nd shot on November 20. 3. Cogentin 0.25 mg p.o. b.i.d. to target EPS 4. We will contact the affirmed healthcare proxy to start ECT. ECT has improved her mental status. 5. Family meeting for today with her sister who is the affirmed healthcare proxy. Reason for continued inpatient stay Substantial Risk for: inability to function, rapid decompensation and med/psych decompensation Time Spent With Patient Time: Total time managing care of this patient today __20__ minutes.
[2023-12-18] MEDS: Gabapentin 300 MG CAPSULE 600 MG PO (19:59)
[2023-12-18] MEDS: traZODone HCL 50 MG TABLET PO (19:59)
[2023-12-18 20:00] VITALS: BP 107/54; PULSE 74; RESP 18; TEMP 36.1; O2SAT 96
[2023-12-19] VITALS (11 sets, daily range): BP systolic 100–145; BP diastolic 55–77; PULSE 66–76; RESP 15–19; TEMP 36.4–36.7; O2SAT 92–100
--- NOTE | 2023-12-19 07:23 | MHC.SHP ---
Pre-Procedural Eval Section A - 24 Hr Update-Section A only Date of Service: 12/19/23 The patient is an INPATIENT: Yes Changes since office visit: Yes Patient answered all questions; No Cold of Flu in the past 2 weeks, No New Medical Problems and No Changes in Medication The patient has been examined within 24 hours of the surgical procedure. The History & Physical has been completed within 30 days and I have reviewed it.: Yes Section B - Complete if H&P > 30 days Chief Complaint: Bipolar disorder depressed with psychotic features Allergies: Allergies Allergy/AdvReac Type Severity Reaction Status Date / Time bee pollen Allergy Severe Anaphylaxis Verified 01/25/22 15:16 levofloxacin [From Levaquin] Allergy Severe Itching Verified 01/25/22 15:16 enoxaparin [From Lovenox] Allergy Intermediate Rash Verified 01/25/22 15:16 Penicillins Allergy Unknown Unknown Verified 01/25/22 15:16 Seasonal Allergies Allergy Runny Nose Verified 01/25/22 15:16 venlafaxine [From Effexor] Allergy Constipatio Verified 01/25/22 15:16 n Plan I have reviewed the history and physical and performed a pertinent physical examination on my patient. No changes have occurred unless specified. Time Spent With Patient Time: Total time managing care of this patient today ____ minutes.
--- NOTE | 2023-12-19 07:24 | P.CONAN_ITS ---
[facility] Active Problems Active Problems: All Active Problems Preoperative cardiovascular examination (Acute) Pre-op evaluation (Acute) Medical clearance for psychiatric admission (Acute) Bipolar 1 disorder, depressed, severe (Acute) Elevated troponin (Acute) Chest discomfort (Acute) S/P cardiac catheterization (Acute) Bipolar 1 disorder (Acute) Varus deformity of knee (Acute) Osteoarthritis of left knee (Acute) Anxiety (Acute) GERD (gastroesophageal reflux disease) (Acute) Insomnia (Acute) Osteopenia (Acute) Murmur, cardiac (Acute) Status post total knee replacement, left (Acute) Acute deep vein thrombosis (DVT) of left tibial vein (Chronic) Past Medical History Medical History History of skin cancer Hx of bladder problems VITO (generalized anxiety disorder) Murmur, cardiac Hx of thyroid nodule Osteopenia Hx of skin cancer, basal cell Seasonal allergies Insomnia Constipation GERD (gastroesophageal reflux disease) Anxiety History of electroconvulsive therapy Bipolar 1 disorder Family History Family History Mother Basal cell carcinoma (BCC) in situ of skin Osteoporosis Hyperlipidemia Father CAD (coronary artery disease) Alcoholism Sister Osteoporosis Depression Brother Cancer of tongue Cancer of skin Family history of problems with anesthesia: No Surgical History Surgical History Hx of colonoscopy H/O elbow surgery History of back surgery History of Problems with Anesthesia: No Social History Social History Household Members: None Housing: Apartment Are you a primary health care marketing manager to a significant other at home: No Do you presently have visiting nurse or other home services: Yes Unable to assess alcohol history related to: Unable to respond Comment: 1:1 suoervision Patient Tobacco Use Status: Former Tobacco user Tobacco use type: Cigarette Years Smoked: 30+, now vapes Smoked in Last 30 Days: No e-Cigarette/Vaping Use: Former Use Patient Interested in Nicotine Replacement: Yes Patient Given Instructions on How to Stop Smoking: Yes Date Education Initiated: 11/01/23 Second Hand Smoke Exposure: No Use of substances other than those prescribed or required for medical reasons: Yes Substance Use Type: Crack/Cocaine Last Used Substance: Unknown Currently Displaying Signs/Symptoms of Drug Intoxication Withdrawal: No Any prior treatment program specific to substance use: No Have you been hit, kicked, punched, or otherwise hurt by someone within the past year? If so, by whom?: No Do you feel safe in your current relationship?: Yes Is there a partner from a previous relationship who is making you feel unsafe now?: No Are you made to feel afraid or neglected: No Baptism Healthcare Practices: baptism Advance Directives: No Advance Directives Information Provided: No Do you have thoughts of harming others: None Do you have a plan to hurt others: No Plan Recently lost weight without trying: Yes How much weight loss: 14-23 pounds Eating poorly because of decreased appetite: Yes Nutrition screen score: 5 Nutrition Risks: Dental problems and Poor intake 0-25% >4 days Patient : No : No Poor oral hygiene: No service: No Current occupational status: unemployed and retired 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 presenting disorganized behavior when being interviewed. Meds Allergies Allergy/AdvReac Type Severity Reaction Status Date / Time bee pollen Allergy Severe Anaphylaxis Verified 01/25/22 15:16 levofloxacin [From Levaquin] Allergy Severe Itching Verified 01/25/22 15:16 enoxaparin [From Lovenox] Allergy Intermediate Rash Verified 01/25/22 15:16 Penicillins Allergy Unknown Unknown Verified 01/25/22 15:16 Seasonal Allergies Allergy Runny Nose Verified 01/25/22 15:16 venlafaxine [From Effexor] Allergy Constipatio Verified 01/25/22 15:16 n Active Medications: Current Medications Acetaminophen (Acetaminophen 325 Mg Tablet) 650 mg PO Q6H PRN PRN Reason: Headache/Pain Mild Scale (1-3) Last Admin: 12/04/23 06:43 Dose: 650 mg Al Hydroxide/Mg Hydroxide (Magnesium Hydrox/Alum Hydrox 30 Ml Oral.Susp) 30 ml PO Q6H PRN PRN Reason: Heartburn/Nausea Benztropine Mesylate (Benztropine Mesylate 0.5 Mg Tablet) 0.25 mg PO BID [facility] Last Admin: 12/18/23 19:59 Dose: 0.25 mg Cyclobenzaprine HCl (Cyclobenzaprine Hcl 10 Mg Tablet) 10 mg PO TID PRN PRN Reason: muscle spasm Docusate Sodium (Docusate Sodium 100 Mg Capsule) 100 mg PO BID [facility] Last Admin: 12/18/23 19:59 Dose: 100 mg Gabapentin (Gabapentin 300 Mg Capsule) 600 mg PO BEDTIME [facility] Last Admin: 12/18/23 19:59 Dose: 600 mg Hydroxyzine HCl (Hydroxyzine Hcl 25 Mg Tablet) 25 mg PO Q6H PRN PRN Reason: Anxiety Last Admin: 12/14/23 20:46 Dose: 25 mg Loratadine (Loratadine 10 Mg Tablet) 10 mg PO DAILY PRN PRN Reason: Allergy Symptoms Magnesium Hydroxide (Milk Of Magnesia 30 Ml Oral.Susp) 30 ml PO DAILY PRN PRN Reason: Constipation Omeprazole (Omeprazole 20 Mg Capsule.Dr) 20 mg PO BID@0630,1630 [facility] Last Admin: 12/18/23 23:50 Dose: Not Given Paliperidone Palmitate (Paliperidone Palmitate 234 Mg/1.5 Ml Syringe) 234 mg IM Q30D [facility] Thiamine HCl (Thiamine Hcl 100 Mg Tablet) 100 mg PO BID [facility] Last Admin: 12/18/23 19:59 Dose: 100 mg Trazodone HCl (Trazodone Hcl 50 Mg Tablet) 50 mg PO BEDTIME MRX1 PRN PRN Reason: Insomnia Last Admin: 12/18/23 19:59 Dose: 50 mg Home Medications ?Medication ?Instructions ?Recorded ?Confirmed ?Last Taken ?Type omeprazole 20 mg capsule,delayed 20 mg PO BID 05/09/21 11/01/23 08/09/21 History release docusate sodium 100 mg capsule 1 cap PO BID 07/21/21 11/01/23 Unknown History loratadine 10 mg tablet (Claritin) 10 mg PO DAILY PRN Allergy Symptoms 07/21/21 11/01/23 Unknown History acetaminophen 325 mg tablet 650 mg PO Q6H PRN Fever Or Pain 09/08/21 11/01/23 10/29/23 14:05 History gabapentin 400 mg capsule 1,200 mg PO BEDTIME 01/25/22 11/01/23 10/31/23 19:37 History citalopram 20 mg tablet 20 mg PO DAILY 11/01/23 11/01/23 Unknown History cyclobenzaprine 10 mg tablet 10 mg PO TID PRN muscle spasm 11/01/23 11/01/23 Unknown History eszopiclone 3 mg tablet 3 mg PO BEDTIME 11/01/23 11/01/23 Unknown History ibuprofen 600 mg tablet 600 mg PO TID 11/01/23 11/01/23 10/31/23 14:26 History lorazepam 2 mg tablet 2 mg PO TID 11/01/23 11/01/23 11/01/23 14:00 History oxycodone 5 mg capsule 2.5 mg PO Q8H PRN Severe Pain 11/01/23 11/01/23 Unknown History (Scale Score 7-10) quetiapine 400 mg tablet 800 mg PO BEDTIME 11/01/23 11/01/23 Unknown History Exam Height,Weight and Vital Signs: Height 5 ft 6 in Weight 67.041 kg Last Vital Signs Temp 97.6 F 12/19/23 06:28 Pulse 70 12/19/23 06:28 Resp 17 12/19/23 06:28 BP 113/69 12/19/23 06:28 Pulse Ox 97 12/19/23 06:28 O2 Del Method Room Air 12/19/23 06:28 O2 Flow Rate 2 12/17/23 07:20 Pertinent Lab Results Pertinent Lab Results: Laboratory Tests 11/11/23 11/17/23 12/10/23 15:25 19:20 09:53 WBC 12.4 H RBC 4.04 L Hgb 12.4 Hct 36.0 L MCV 89.1 MCH 30.7 MCHC 34.4 RDW 12.8 Plt Count 249 MPV 9.1 L Immature Gran % (Auto) 0.6 H Neut % (Auto) 71.6 Lymph % (Auto) 13.2 L [place]arton % (Auto) 14.0 H Eos % (Auto) 0.3 Baso % (Auto) 0.3 Lymph # (Auto) 1.6 [place] # (Auto) 1.7 H Eos # (Auto) 0.0 Baso # (Auto) 0.0 Abs Immat Gran (auto) 0.08 H Absolute Neuts (auto) 8.9 H Absolute Nucleated RBC 0.000 Nucleated RBC % (auto) 0.0 Smear Tech's Comments VERIFIED Sodium 141 136 Potassium 3.4 3.4 Chloride 105 103 Carbon Dioxide 22 22 Anion Gap 17 14 BUN 27 H 22 H Creatinine 0.77 0.84 0.71 Estim Creat Clear Calc 67.2 61.1 72.9 Estimated GFR > 60 > 60 > 60 Random Glucose 65 166 H Calcium 9.5 9.6 Total Bilirubin 0.2 0.3 AST 23 22 ALT 29 24 Alkaline Phosphatase 106 104 Total Protein 6.5 7.1 Albumin 3.8 4.2 Airway Mallampati Class: III TM Dist: >3cm Neck ROM: Full Denture: Upper and Lower Loose/Missing/Broken Teeth: Yes, Upper and Lower Heart: RRR Lungs: CTA Assessment and Plan Assessment Anesthesia Assessment: Anesthesia Plan Discussed and Chart Reviewed Final Anesthetic Review Family History of Problems with Anesthesia: No History of Problems with Anesthesia: No NPO: Yes ASA Class: II Final Preanesthetic Review: Meds/Allgs Chart Reviewed, Consent Obtained/Reviewed and Anes Risks/Benef Reviewed Patient Risk: Low Procedure Risk: Intermediate Anesthetic Plan Anesthetic Plan: GA Disposition: Standard PACU
--- NOTE | 2023-12-19 07:24 | HO.ECTPROC ---
ECT Procedure Note Diagnosis/Treatment Date of Service: 12/19/23 Diagnosis: Bipolar disorder and Catatonia Previous ECT Date: 12/17/23 Current Treatment Number: 8 Treatment: Series Interval Clinical Notes: The patient reported feeling much better, no evidence of catatonia. No side effects with the previous ECT. ECT done as usual, no complications. We ordered Haldol 2.5 mg IVP and Versed 2 as per protocol which was helpful Time: Total time managing care of this patient today ____ minutes. ECT Settings Device: THYMATRON DGx Electrode Placement: Bifrontal Program/Pulse Width: 0.50 Energy Percent: 100 Seizure Duration By EEG (in seconds): 29 Medications Administration General Anesthetic: Etomidate (12) Muscle Relaxant: Succinylcholine (100) Ancillary Medications Analgesics: Torodol - Pre ECT Anti-emetics: Zofran - Pre ECT Miscillaneous Medications: Midazolam and Haldol (2.5 mg IVP) Airway Management Airway Management: Bag Mask Ventilation Treatment Recommendations No Changes Recommended: No change Notes: last inpt tx will change to outpt Pt Tolerated Procedure w/o Issue: Yes
[2023-12-19] MEDS: Haloperidol Lactate 5 MG/ML VIAL 2.5 MG IVPUSH (07:40)
[2023-12-19] MEDS: Thiamine HCL 100 MG TABLET PO ×2 (09:34→20:11)
[2023-12-19] MEDS: Docusate Sodium 100 MG CAPSULE PO ×2 (09:34→20:12)
[2023-12-19] MEDS: Benztropine Mesylate 0.5 MG TABLET 0.25 MG PO ×2 (09:34→20:11)
--- NOTE | 2023-12-19 14:23 | HO.PSYCHPN ---
Subjective Subjective Date of Service: 12/19/23 Reason For Visit: Bipolar disorder depressed with psychotic features Subjective Notes: Conditional Voluntary Interim History: The nursing staff reported the patient had been cooperative pleasant she went to ECT without any problems. On interview the patient denies new symptoms she is aware that she is going to be discharged next Sunday. We are arranging ECT for outpatient. Mental Status Exam Mental Status Exam Patient Appearance: Appropriate Patient Orientation: Person and Situation Level of Consciousness: Awake Patient Behavior: Appropriate and Cooperative Mood Description: Constricted Affect Description: Labile Patient Cognition Impaired: Yes Ability to Follow Directions: Good Speech Pattern: Clear Hallucinations: None Delusions: Not Present Thought Process: Distracted and Slowed Thinking Thought Content: positive for [place] and positive for Poverty of Content Judgement: Poor Diagnostics Vital Signs (24Hr): Vital Signs - 24 hr 12/18/23 20:00 12/19/23 05:45 12/19/23 06:28 Temperature 97.0 F 97.6 F 97.6 F Pulse Rate 74 76 70 Respiratory Rate 18 16 17 Blood Pressure 107/54 L 112/60 113/69 Pulse Oximetry 96 97 97 Oxygen Delivery Method Room Air Room Air Room Air Oxygen Flow Rate 12/19/23 07:40 12/19/23 07:45 12/19/23 07:50 Temperature 98.1 F Pulse Rate 71 66 67 Respiratory Rate 18 19 17 Blood Pressure 145/77 H 113/64 107/65 Pulse Oximetry 100 93 92 Oxygen Delivery Method Nasal Cannula with ETCO2 Nasal Cannula with ETCO2 Nasal Cannula with ETCO2 Oxygen Flow Rate 2 2 2 12/19/23 07:55 12/19/23 08:10 12/19/23 08:25 Temperature Pulse Rate 67 75 66 Respiratory Rate 17 17 18 Blood Pressure 109/62 126/72 127/71 Pulse Oximetry 92 94 94 Oxygen Delivery Method Nasal Cannula with ETCO2 Room Air Room Air Oxygen Flow Rate 2 12/19/23 08:40 12/19/23 08:55 Temperature 98.1 F Pulse Rate 69 69 Respiratory Rate 18 18 Blood Pressure 121/76 117/69 Pulse Oximetry 96 97 Oxygen Delivery Method Room Air Room Air Oxygen Flow Rate BMI result Body Mass Index 23.9 Labs 11/11/23 15:25 12/10/23 09:53 Medications Medications Current Medications Acetaminophen (Acetaminophen 325 Mg Tablet) 650 mg PO Q6H PRN PRN Reason: Headache/Pain Mild Scale (1-3) Last Admin: 12/04/23 06:43 Dose: 650 mg Al Hydroxide/Mg Hydroxide (Magnesium Hydrox/Alum Hydrox 30 Ml Oral.Susp) 30 ml PO Q6H PRN PRN Reason: Heartburn/Nausea Benztropine Mesylate (Benztropine Mesylate 0.5 Mg Tablet) 0.25 mg PO BID [facility] Last Admin: 12/19/23 09:34 Dose: 0.25 mg Cyclobenzaprine HCl (Cyclobenzaprine Hcl 10 Mg Tablet) 10 mg PO TID PRN PRN Reason: muscle spasm Docusate Sodium (Docusate Sodium 100 Mg Capsule) 100 mg PO BID [facility] Last Admin: 12/19/23 09:34 Dose: 100 mg Gabapentin (Gabapentin 300 Mg Capsule) 600 mg PO BEDTIME [facility] Last Admin: 12/18/23 19:59 Dose: 600 mg Hydroxyzine HCl (Hydroxyzine Hcl 25 Mg Tablet) 25 mg PO Q6H PRN PRN Reason: Anxiety Last Admin: 12/14/23 20:46 Dose: 25 mg Loratadine (Loratadine 10 Mg Tablet) 10 mg PO DAILY PRN PRN Reason: Allergy Symptoms Magnesium Hydroxide (Milk Of Magnesia 30 Ml Oral.Susp) 30 ml PO DAILY PRN PRN Reason: Constipation Omeprazole (Omeprazole 20 Mg Capsule.Dr) 20 mg PO BID@0630,1630 [facility] Last Admin: 12/18/23 23:50 Dose: Not Given Paliperidone Palmitate (Paliperidone Palmitate 234 Mg/1.5 Ml Syringe) 234 mg IM Q30D [facility] Thiamine HCl (Thiamine Hcl 100 Mg Tablet) 100 mg PO BID [facility] Last Admin: 12/19/23 09:34 Dose: 100 mg Trazodone HCl (Trazodone Hcl 50 Mg Tablet) 50 mg PO BEDTIME MRX1 PRN PRN Reason: Insomnia Last Admin: 12/18/23 19:59 Dose: 50 mg Allergies Allergies Allergy/AdvReac Type Severity Reaction Status Date / Time bee pollen Allergy Severe Anaphylaxis Verified 01/25/22 15:16 levofloxacin [From Levaquin] Allergy Severe Itching Verified 01/25/22 15:16 enoxaparin [From Lovenox] Allergy Intermediate Rash Verified 01/25/22 15:16 Penicillins Allergy Unknown Unknown Verified 01/25/22 15:16 Seasonal Allergies Allergy Runny Nose Verified 01/25/22 15:16 venlafaxine [From Effexor] Allergy Constipatio Verified 01/25/22 15:16 n Assessment & Plan Assessment & Plan (1) Bipolar 1 disorder, depressed, severe: Status: Acute Code(s): F31.4 - Bipolar disorder, current episode depressed, severe, without psychotic features Assessment and Plan: 12/01: ECT to continue. One to one ordered for NPO times until after the treatment for added support and compliance. Plan Cardiac studies reviewed. Prior echocardiogram with LVEF 55-60% with no wall motion abnormalities and otherwise unremarkable. Myocardial perfusion imaging study shows a small area of mild intensity apical ischemia. Cardiac catheterization 2021 shows normal coronary arteries. Overall, no cardiac contraindications to proceed with ECT therapy. No clear explanation as to why she had a small troponin leak in the past after ECT. Possible coronary vasospasm from ECT? Cannot predict recurrence either. If clinically indicated, may pursue ECT therapy considering the above. At this moment the patient has enough criteria for ECT. Probably will need to rev paz her CV and filed for Section 7 and 8 since the patient is not compliant with medication grossly psychotic. But after discussing the case with her healthcare proxy and the legal team, on November 05 we are doing the paperwork to affirmed healthcare proxy. Encourage compliance with medication. On November 13 we got the information of the healthcare proxy we are going to start Invega Sustenna and discontinue Risperdal p.o. 11/16 Patient disorganized speech and behavior. Patient unable/unwilling to engage with fha underwriter. Staff reports not eating; did drink about 480 cc of fluids; not taking medications -since has had very poor p.o. intake, will get some baseline labs if patient willing 11/17 Patient had just fallen asleep when fha underwriter arrived and fha underwriter decided it was in patient's best interest to remain sleeping as she remains too disorganized to engage and sleep is likely therapeutic; also she is on a one-to-one and staff able to provide information. Staff reports that patient did a little better today regarding that she drank about 700 cc of fluid and ate half a sandwich. She said to staff person that she wanted to and [facility]. Reviewed labs: Mildly elevated white count Lytes WNL BUN/creatinine grossly WNL LFTs WNL 12/14 patient reports good mood; ECT is helped. She is wondering how much longer to get ECT but will discuss further with primary team when they return 12/15 continue tx; ECT tomorrow Plan 1. Continue with Invega Sustenna as per plan. 2. We will consider ECT if she fails to Invega. Invega Sustenna 234 mg IM 2nd shot on November 20. 3. Cogentin 0.25 mg p.o. b.i.d. to target EPS 4. We will contact the affirmed healthcare proxy to start ECT. ECT has improved her mental status. 5. Family meeting for today with her sister who is the affirmed healthcare proxy. Reason for continued inpatient stay Substantial Risk for: inability to function, rapid decompensation and med/psych decompensation Time Spent With Patient Time: Total time managing care of this patient today __20__ minutes.
--- NOTE | 2023-12-19 14:37 | MHC.CLN ---
F/U DIET=REGULAR. INTAKE AT MEALS USUALLY 100%. ENSURE SUPPLEMENT DISCONTINUED DUE TO GOOD/EXCELLENT PO. FAVORABLE 14% WEIGHT GAIN SINCE ADMISSION. PATENT NOW QUALIFIES LOW NUTRITIONAL RISK.
[2023-12-19] MEDS: Omeprazole 20 MG CAPSULE.DR PO (16:43)
[2023-12-19] MEDS: Gabapentin 300 MG CAPSULE 600 MG PO (20:12)
[2023-12-19] MEDS: traZODone HCL 50 MG TABLET PO (20:12)
[2023-12-20] MEDS: Omeprazole 20 MG CAPSULE.DR PO ×2 (05:30→17:00)
[2023-12-20 08:00] VITALS: BP 111/55; PULSE 93; RESP 18; TEMP 36.4; O2SAT 95
[2023-12-20] MEDS: Benztropine Mesylate 0.5 MG TABLET 0.25 MG PO ×2 (08:33→20:44)
[2023-12-20] MEDS: Docusate Sodium 100 MG CAPSULE PO ×2 (08:33→20:45)
[2023-12-20] MEDS: Thiamine HCL 100 MG TABLET PO ×2 (08:33→20:45)
[2023-12-20 08:36] LABS: Anion Gap 12 (12-20); Blood Urea Nitrogen 23 mg/dL (9-16); Calcium 9.6 mg/dL (8.4-10.2); Carbon Dioxide 25 mmol/L (22-29); Chloride 106 mmol/L (96-108); Creatinine Clr Calc Pharmacy 65.5; Estimated Glomerular Filt Rate > 60; Glucose Random 153 mg/dL (60-115); Potassium 4.1 mmol/L (3.3-5.1); Sodium 139 mmol/L (135-145)
--- NOTE | 2023-12-20 11:25 | HO.POSTANES ---
Post Anesthesia Evaluation Post Anesthesia Evaluation Date of Service: 12/19/23 Anesthesia: General Mental Status: Awake Pain Control: Satisfactory Nausea/Vomiting: None Hydration: Adequate Anesthesia-Related Issues: No Anes. Related Issues
[2023-12-20 13:39] VITALS: BMI 24.3
--- NOTE | 2023-12-20 14:00 | P.PNPSI_ITS ---
Subjective Subjective Date of Service: 12/20/23 Reason For Visit: Bipolar disorder depressed with psychotic features Subjective Notes: Conditional Voluntary Interim History: The nursing staff reported that patient had been compliant, cheerful at times. She is ready to go as per her report. On interview the patient denies new symptoms discharge for tomorrow. Mental Status Exam Mental Status Exam Patient Appearance: Appropriate Patient Orientation: Person and Situation Level of Consciousness: Awake and Appropriate Patient Behavior: Guarded and Passive Mood Description: Withdrawn Affect Description: Constricted Patient Cognition Impaired: Yes Ability to Follow Directions: Good Speech Pattern: Clear Hallucinations: None Delusions: Not Present Thought Process: Distracted and Evasive Thought Content: positive for [place] and positive for Poverty of Content Judgement: Poor Diagnostics Vital Signs (24Hr): Vital Signs - 24 hr 12/19/23 20:00 12/20/23 08:00 Temperature 97.9 F 97.5 F Pulse Rate 74 93 Respiratory Rate 15 18 Blood Pressure 100/55 L 111/55 L Pulse Oximetry 95 95 Oxygen Delivery Method Room Air Room Air BMI result Body Mass Index 24.3 Labs 11/11/23 15:25 12/20/23 08:05 Labs: Laboratory Results - last 48 hr 12/20/23 08:05 Sodium 139 Potassium 4.1 D Chloride 106 Carbon Dioxide 25 Anion Gap 12 BUN 23 H Creatinine 0.79 Estim Creat Clear Calc 65.5 Estimated GFR > 60 Random Glucose 153 H Calcium 9.6 Medications Medications Current Medications Acetaminophen (Acetaminophen 325 Mg Tablet) 650 mg PO Q6H PRN PRN Reason: Headache/Pain Mild Scale (1-3) Last Admin: 12/04/23 06:43 Dose: 650 mg Al Hydroxide/Mg Hydroxide (Magnesium Hydrox/Alum Hydrox 30 Ml Oral.Susp) 30 ml PO Q6H PRN PRN Reason: Heartburn/Nausea Benztropine Mesylate (Benztropine Mesylate 0.5 Mg Tablet) 0.25 mg PO BID [facility] Last Admin: 12/20/23 08:33 Dose: 0.25 mg Cyclobenzaprine HCl (Cyclobenzaprine Hcl 10 Mg Tablet) 10 mg PO TID PRN PRN Reason: muscle spasm Docusate Sodium (Docusate Sodium 100 Mg Capsule) 100 mg PO BID [facility] Last Admin: 12/20/23 08:33 Dose: 100 mg Gabapentin (Gabapentin 300 Mg Capsule) 600 mg PO BEDTIME [facility] Last Admin: 12/19/23 20:12 Dose: 600 mg Hydroxyzine HCl (Hydroxyzine Hcl 25 Mg Tablet) 25 mg PO Q6H PRN PRN Reason: Anxiety Last Admin: 12/14/23 20:46 Dose: 25 mg Loratadine (Loratadine 10 Mg Tablet) 10 mg PO DAILY PRN PRN Reason: Allergy Symptoms Magnesium Hydroxide (Milk Of Magnesia 30 Ml Oral.Susp) 30 ml PO DAILY PRN PRN Reason: Constipation Omeprazole (Omeprazole 20 Mg Capsule.Dr) 20 mg PO BID@0630,1630 [facility] Last Admin: 12/20/23 05:30 Dose: 20 mg Paliperidone Palmitate (Paliperidone Palmitate 234 Mg/1.5 Ml Syringe) 234 mg IM Q30D [facility] Thiamine HCl (Thiamine Hcl 100 Mg Tablet) 100 mg PO BID [facility] Last Admin: 12/20/23 08:33 Dose: 100 mg Trazodone HCl (Trazodone Hcl 50 Mg Tablet) 50 mg PO BEDTIME MRX1 PRN PRN Reason: Insomnia Last Admin: 12/19/23 20:12 Dose: 50 mg Allergies Allergies Allergy/AdvReac Type Severity Reaction Status Date / Time bee pollen Allergy Severe Anaphylaxis Verified 01/25/22 15:16 levofloxacin [From Levaquin] Allergy Severe Itching Verified 01/25/22 15:16 enoxaparin [From Lovenox] Allergy Intermediate Rash Verified 01/25/22 15:16 Penicillins Allergy Unknown Unknown Verified 01/25/22 15:16 Seasonal Allergies Allergy Runny Nose Verified 01/25/22 15:16 venlafaxine [From Effexor] Allergy Constipatio Verified 01/25/22 15:16 n Assessment & Plan Assessment & Plan (1) Bipolar 1 disorder, depressed, severe: Status: Acute Code(s): F31.4 - Bipolar disorder, current episode depressed, severe, without psychotic features Assessment and Plan: 12/01: ECT to continue. One to one ordered for NPO times until after the treatment for added support and compliance. Plan Cardiac studies reviewed. Prior echocardiogram with LVEF 55-60% with no wall motion abnormalities and otherwise unremarkable. Myocardial perfusion imaging study shows a small area of mild intensity apical ischemia. Cardiac catheterization 2021 shows normal coronary arteries. Overall, no cardiac contraindications to proceed with ECT therapy. No clear explanation as to why she had a small troponin leak in the past after ECT. Possible coronary vasospasm from ECT? Cannot predict recurrence either. If clinically indicated, may pursue ECT therapy considering the above. At this moment the patient has enough criteria for ECT. Probably will need to rev paz her CV and filed for Section 7 and 8 since the patient is not compliant with medication grossly psychotic. But after discussing the case with her healthcare proxy and the legal team, on November 05 we are doing the paperwork to affirmed healthcare proxy. Encourage compliance with medication. On November 13 we got the information of the healthcare proxy we are going to start Invega Sustenna and discontinue Risperdal p.o. 11/16 Patient disorganized speech and behavior. Patient unable/unwilling to engage with telegraphic typewriter installer. Staff reports not eating; did drink about 480 cc of fluids; not taking medications -since has had very poor p.o. intake, will get some baseline labs if patient willing 11/17 Patient had just fallen asleep when telegraphic typewriter installer arrived and telegraphic typewriter installer decided it was in patient's best interest to remain sleeping as she remains too disorganized to engage and sleep is likely therapeutic; also she is on a one-to-one and staff able to provide information. Staff reports that patient did a little better today regarding that she drank about 700 cc of fluid and ate half a sandwich. She said to staff person that she wanted to and go to [facility]. Reviewed labs: Mildly elevated white count Lytes WNL BUN/creatinine grossly WNL LFTs WNL 12/14 patient reports good mood; ECT is helped. She is wondering how much longer to get ECT but will discuss further with primary team when they return 12/15 continue tx; ECT tomorrow Plan 1. Continue with Invega Sustenna as per plan. 2. We will consider ECT if she fails to Invega. Invega Sustenna 234 mg IM 2nd shot on November 20. 3. Cogentin 0.25 mg p.o. b.i.d. to target EPS 4. We will contact the affirmed healthcare proxy to start ECT. ECT has improved her mental status. 5. Family meeting for today with her sister who is the affirmed healthcare proxy. Reason for continued inpatient stay Substantial Risk for: inability to function, rapid decompensation and med/psych decompensation Time Spent With Patient Time: Total time managing care of this patient today __20__ minutes.
[2023-12-20 20:00] VITALS: BP 112/67; PULSE 76; RESP 18; TEMP 36.7; O2SAT 97
[2023-12-20] MEDS: Gabapentin 300 MG CAPSULE 600 MG PO (20:44)
[2023-12-20] MEDS: traZODone HCL 50 MG TABLET PO (20:45)
[2023-12-20] MEDS: hydrOXYzine HCL 25 MG TABLET PO (20:45)
[2023-12-21 05:57] VITALS: BP 109/66; PULSE 65; RESP 16; TEMP 35.9; O2SAT 96
[2023-12-21 07:50] VITALS: BP 127/65; PULSE 72; RESP 18; TEMP 36.3; O2SAT 99
[2023-12-21] MEDS: Benztropine Mesylate 0.5 MG TABLET 0.25 MG PO (08:03)
[2023-12-21] MEDS: Docusate Sodium 100 MG CAPSULE PO (08:04)
[2023-12-21] MEDS: Omeprazole 20 MG CAPSULE.DR PO (08:04)
[2023-12-21] MEDS: Thiamine HCL 100 MG TABLET PO (08:04)
--- NOTE | 2023-12-21 08:14 | PM.PSYDC ---
DS: Providers Provider Date of Service: 12/21/23 Date of admission: 11/01/23 15:07 Date of discharge: 12/21/23 Primary care physician: Theresa Nelson MD Attending physician on admission: Javier Mccabe Consults: 11/01/23 17:17 Consult to Hospitalist Routine Comment: Consulting Provider: Hospitalist Reason For Exam: adm phy preop ect 11/02/23 15:23 Consult to Cardiology Routine Consulting Provider: [facility] Reason for consultation: see past notes pre op ect eval Has provider been notified: No Discharging clinician: Javier Mccabe DS: Diagnosis Discharge Diagnosis (1) Bipolar 1 disorder, depressed, severe: Status: Acute DS: Medications Discharge Medications Home Medications: Home Medications ?Medication ?Instructions ?Recorded ?Confirmed omeprazole 20 mg capsule,delayed 20 mg PO BID 05/09/21 11/01/23 release docusate sodium 100 mg capsule 1 cap PO BID 07/21/21 11/01/23 loratadine 10 mg tablet (Claritin) 10 mg PO DAILY PRN Allergy Symptoms 07/21/21 11/01/23 acetaminophen 325 mg tablet 650 mg PO Q6H PRN Fever Or Pain 09/08/21 11/01/23 gabapentin 400 mg capsule 1,200 mg PO BEDTIME 01/25/22 11/01/23 citalopram 20 mg tablet 20 mg PO DAILY 11/01/23 11/01/23 cyclobenzaprine 10 mg tablet 10 mg PO TID PRN muscle spasm 11/01/23 11/01/23 eszopiclone 3 mg tablet 3 mg PO BEDTIME 11/01/23 11/01/23 ibuprofen 600 mg tablet 600 mg PO TID 11/01/23 11/01/23 lorazepam 2 mg tablet 2 mg PO TID 11/01/23 11/01/23 oxycodone 5 mg capsule 2.5 mg PO Q8H PRN Severe Pain 11/01/23 11/01/23 (Scale Score 7-10) quetiapine 400 mg tablet 800 mg PO BEDTIME 11/01/23 11/01/23 Mental Status Exam Mental Status Exam Patient Appearance: Well Grooomed and Appropriate Patient Orientation: Person and Situation Level of Consciousness: Awake and Appropriate Patient Behavior: Cooperative and Passive Mood Description: Calm Affect Description: Labile Patient Cognition Impaired: Yes Ability to Follow Directions: Good Speech Pattern: Clear Hallucinations: None Delusions: Not Present Thought Process: Distracted and Slowed Thinking Thought Content: positive for Circumstantial and positive for Poverty of Content Judgement: Fair Data Data Completed and Pending Completed studies during hospitalization [Text1]: 12/20/23 08:05 Sodium 139 Potassium 4.1 D Chloride 106 Carbon Dioxide 25 Anion Gap 12 BUN 23 H Creatinine 0.79 Estim Creat Clear Calc 65.5 Estimated GFR > 60 Random Glucose 153 H Calcium 9.6 DS: Summary Hospital Course Hospital Course: The patient is a 68-year-old female with a past history of bipolar disorder who was transferred from [facility] for ECT. The patient had been disorganized with psychotic features and worsening of depression and historically, she responded fairly well to ECT. She was transferred here for this treatment. On admission, the patient was severely dysphoric, she refused her medications consistently and she worsened to the point that she was nearly catatonic. She had a healthcare proxy, her sister, that we eventually went to court and affirmed so she can take decisions for her. Since the patient was noncompliant with mood stabilizers and antipsychotics, we started with Invega Sustenna titrated up to 254 mg IM with no side effects. The patient's psychosis improved slightly but she was still grossly disorganized and catatonic. We discussed at length risks, benefits, side-effects and alternatives and her sister approved ECT. ECT was started and the patient woke up and responded fairly well with the 1st ECT but later on she relapsed on her catatonic symptoms by session 4. She was much better, alert awake pleasant and compliant with medications. We decided to do 8 sessions and since the patient was back at baseline discharge planning was discussed. We had several family meetings and her siblings were very worried about her condition and compliance. Historically, the patient had been chronically noncompliant and relapsed on her symptoms. Now the patient isn't a long-acting injectable and she agreed to continue ECT as an outpatient. Since there were no safety concerns discharge planning was discussed. Time spent discussing smoking cessation with patient: 3 to 10 minutes Status at Discharge Cognitive/behavioral status at discharge: Impaired at baseline, she scored low on the Thomas an Darren test even though, she is able to do her own ADL less in the community. Functional status at discharge: independent ambulation Overall status at discharge: patient is back to baseline Time Spent with Patient Time attestation: Total time managing care of this patient today _30_ minutes. Time spent: Less than 30 minutes Discharge Plan Discharge Anticipated Discharge Date/Time: 12/21/23 10:00 Patient Disposition: Home, Self-Care Discharge Diagnosis: Bipolar disorder type 1 most recent episode depressed with catatonia and psychosis. Cognitive impairment. Referrals: RONALDO Olivier [Other] - 12/27/23 2:00 pm (Your next therapy appointment with Ana is on 12/27/23 at 2PM. ) [facility] [Other] - 12/21/23 (Your Property Claims Adjuster Maame Browning and behavioral health clinician Clara at [facility] will contact you following discharge. ) Chino Gibson NP Clinical and Support Options [Other] - 12/28/23 3:00 pm (Your first appointment with Chino Veras research psychologist at [facility] is scheduled for 12/28/23 at 3PM. ) [facility] [Other] - 12/21/23 (You are authorized for 8.5 hours of homemaking services, laundry services once a week and data communications software consultant services to accompany you to outpatient ECT appointments. Your case packer and sealer Leigh Young will contact you following discharge. Her number is [phone] if you need to contact her. Services will resume at the time of discharge. ) [facility] Outpatient ECT [Other] - 12/26/23 6:00 am (You are scheduled for maintenance ECT sessions. Your first is scheduled for 12/26/23 at 6am. Your next sessions are scheduled as follows: 01/01, 01/08, 01/15 Please arrive to Same Day Surgery check in on the second floor of [facility] for 6am. You are scheduled with [facility] transportation for fruit picker machine operator on 12/26/23 at 5:45am. The [facility] van will pick ypu outside your residence at 5:45 and then pick you up at front of hospital to transport home at 9:30am. Please call [phone] if you need to make changes and for scheduling follow up rides for your additional appointments. Your confirmation number for the ride with [facility] transportation services on 12/26/23 is [phone].) [facility] [Other] - 12/22/23 ([facility] to begin 12/22/23 for medication management services. ) Theresa Nelson MD [Primary Care Provider] - 01/01/24 10:00 am (Your next appointment with Dr Nelson is 01/01/24 at 10AM. ) Discharge Medications: New acetaminophen 325 mg Tablet 650 mg PO Q6H PRN (Reason: Headache/Pain Mild Scale (1-3)) 30 Days Qty: 60 0RF benztropine 0.5 mg Tablet 0.25 mg PO BID 30 Days Qty: 30 0RF trazodone 50 mg Tablet 50 mg PO BEDTIME MRX1 PRN (Reason: Insomnia) 30 Days Qty: 60 0RF gabapentin 300 mg Capsule 600 mg PO BEDTIME 30 Days Qty: 60 0RF hydroxyzine HCl 25 mg Tablet 25 mg PO Q6H PRN (Reason: Anxiety) 30 Days Qty: 60 0RF Invega Sustenna 234 mg/1.5 mL Syringe 234 mg IM Q30D 30 Days Qty: 1.5 0RF thiamine mononitrate (vit B1) 100 mg Tablet 100 mg PO BID 30 Days Qty: 60 0RF Continued cyclobenzaprine 10 mg tablet 10 mg PO TID PRN (Reason: muscle spasm) 30 Days Qty: 60 1RF docusate sodium 100 mg capsule 1 cap PO BID 30 Days Qty: 60 0RF omeprazole 20 mg capsule,delayed release(DR/EC) 20 mg PO BID 30 Days Qty: 60 0RF loratadine [Claritin] 10 mg Tablet 10 mg PO DAILY PRN (Reason: Allergy Symptoms) 30 Days Qty: 30 1RF Discontinued acetaminophen 325 mg Tablet 650 mg PO Q6H PRN (Reason: Fever Or Pain) citalopram 20 mg Tablet 20 mg PO DAILY lorazepam 2 mg Tablet 2 mg PO TID oxycodone 5 mg Capsule 2.5 mg PO Q8H PRN (Reason: Severe Pain (Scale Score 7-10)) ibuprofen 600 mg Tablet 600 mg PO TID eszopiclone 3 mg tablet 3 mg PO BEDTIME quetiapine 400 mg tablet 800 mg PO BEDTIME gabapentin 400 mg capsule 1,200 mg PO BEDTIME Discharge Orders: Discharge Order (Routine); Ordered 12/21/23 Ordered By: Javier Mccabe Diet: Advance to usual diet Activity on Discharge: As tolerated Stand Alone Forms: Patient Portal Discharge page Print Language: Mozambican Care Plan Goals: Care plan goals achieved in this admission. Health Concerns: Continue treatment with primary care physician and outpatient providers. Plan of Treatment: Continue outpatient psychiatric treatment. Continue ECT once a week for 4 weeks and reassess. Assessment: Middle-aged female with a past history of bipolar disorder who was transferred to this facility to do ECT since the patient decompensated with catatonic symptoms. The patient responded fairly well to ECT and we started Invega Sustenna as a long-acting injectable since the patient has chronic history of noncompliance. At this moment the patient is ready to go back to the community no acute safety concerns.
[2023-12-21] MEDS: Paliperidone Palmitate 234 MG/1.5 ML SYRINGE IM (08:24)
== END 2023-12-21 11:30 | disposition home or self-care (01) | DRG 885 ==
PROVIDERS: Psychiatry & Neurology Psychiatry; Admitting Provider Psychiatry & Neurology Psychiatry; PCP Family Medicine; Visit Provider Psychiatry & Neurology Psychiatry
PROC: GZB4ZZZ Other Electroconvulsive Therapy (ICD-10-PCS; CPT 90870; principal; 2023-12-03 08:30)
DX: F31.4 Bipolar disorder, current episode depressed, severe, without psychotic features (principal); F06.1 Catatonic disorder due to known physiological condition; G25.81 Restless legs syndrome; K21.9 Gastro-esophageal reflux disease without esophagitis; Z91.148 Patient's other noncompliance with medication regimen for other reason; Z86.718 Personal history of other venous thrombosis and embolism; Z87.891 Personal history of nicotine dependence; Z79.899 Other long term (current) drug therapy
CPT/HCPCS: 36415; 80048; 80053; 82565; 85025; 90870; 93005; J0330; J1630; J1885; J2060; J2250; J2359; J2405; J2426; J2704; J7120

== ENCOUNTER 2023-11-01 15:07 | Outpatient (BNV) | payer OTHER, SELFPAY | END 2023-11-02 08:00 | PROVIDERS: Admitting Provider Psychiatry & Neurology Psychiatry; PCP Family Medicine; Visit Provider Internal Medicine | DX: R07.9 Chest pain, unspecified (principal); Z01.810 Encounter for preprocedural cardiovascular examination | CPT/HCPCS: 93010 ==

== ENCOUNTER → 2023-11-01 15:07 | Outpatient (BNV) | payer OTHER, SELFPAY | PROVIDERS: Admitting Provider Psychiatry & Neurology Psychiatry; PCP Family Medicine; Visit Provider Internal Medicine | DX: Z01.810 Encounter for preprocedural cardiovascular examination (principal) | CPT/HCPCS: 99221 ==

== ENCOUNTER → 2023-11-01 15:07 | Outpatient (BNV) | payer OTHER, SELFPAY | PROVIDERS: Admitting Provider Psychiatry & Neurology Psychiatry; PCP Family Medicine; Visit Provider Student in an Organized Health Care Education/Training Program | DX: Z02.2 Encounter for examination for admission to residential institution (principal) | CPT/HCPCS: 99429 ==

== ENCOUNTER → 2023-11-01 15:07 | Outpatient (BNV) | payer OTHER, SELFPAY | PROVIDERS: Admitting Provider Psychiatry & Neurology Psychiatry; PCP Family Medicine; Visit Provider Psychiatry & Neurology Psychiatry | DX: F31.4 Bipolar disorder, current episode depressed, severe, without psychotic features (principal) | CPT/HCPCS: 90870; 99231; 99232; 99238; 99499 ==

== ENCOUNTER → 2023-11-01 15:07 | Outpatient (BNV) | payer OTHER, SELFPAY | PROVIDERS: Admitting Provider Psychiatry & Neurology Psychiatry; PCP Family Medicine; Visit Provider Psychiatry & Neurology Psychiatry | DX: F31.4 Bipolar disorder, current episode depressed, severe, without psychotic features (principal) | CPT/HCPCS: 90792; 90870; 99231; 99232 ==

== ENCOUNTER 2024-01-02 06:03 | Day surgery (SDC) | payer OTHER, SELFPAY ==
[2024-01-02] VITALS (11 sets, daily range): BP systolic 103–144; BP diastolic 67–84; PULSE 70–88; RESP 16–20; TEMP 36.2–36.8; O2SAT 92–100; BMI 24.4
--- NOTE | 2024-01-02 06:45 | HO.ANESPROP2 ---
[facility] Active Problems Active Problems: All Active Problems Bipolar 1 disorder, depressed, severe (Acute) Elevated troponin (Acute) Chest discomfort (Acute) S/P cardiac catheterization (Acute) Bipolar 1 disorder (Acute) Varus deformity of knee (Acute) Osteoarthritis of left knee (Acute) Anxiety (Acute) GERD (gastroesophageal reflux disease) (Acute) Insomnia (Acute) Osteopenia (Acute) Murmur, cardiac (Acute) Status post total knee replacement, left (Acute) Acute deep vein thrombosis (DVT) of left tibial vein (Chronic) Past Medical History Medical History History of skin cancer Hx of bladder problems VITO (generalized anxiety disorder) Murmur, cardiac Hx of thyroid nodule Osteopenia Hx of skin cancer, basal cell Seasonal allergies Insomnia Constipation GERD (gastroesophageal reflux disease) Anxiety History of electroconvulsive therapy Bipolar 1 disorder Family History Family History Mother Basal cell carcinoma (BCC) in situ of skin Osteoporosis Hyperlipidemia Father CAD (coronary artery disease) Alcoholism Sister Osteoporosis Depression Brother Cancer of tongue Cancer of skin Family history of problems with anesthesia: No Surgical History Surgical History Hx of colonoscopy H/O elbow surgery History of back surgery History of Problems with Anesthesia: No Social History Social History Household Members: None Housing: Apartment Are you a primary school child care attendant to a significant other at home: No Do you presently have visiting nurse or other home services: Yes Unable to assess alcohol history related to: Unable to respond Comment: 1:1 suoervision Patient Tobacco Use Status: Current everyday Tobacco user Tobacco use type: Cigarette Years Smoked: 30+, now vapes Smoked in Last 30 Days: Yes e-Cigarette/Vaping Use: Former Use Patient Interested in Nicotine Replacement: No Second Hand Smoke Exposure: No Substance Use Type: Crack/Cocaine Substance Use Frequency: Daily Are you DNR?: No Advance Directives: No Advance Directives Information Provided: Yes Nutrition Risks: No Nutritional Risk service: No Current occupational status: unemployed and retired 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 presenting disorganized behavior when being interviewed. Meds Allergies Allergy/AdvReac Type Severity Reaction Status Date / Time bee pollen Allergy Severe Anaphylaxis Verified 01/25/22 15:16 levofloxacin [From Levaquin] Allergy Severe Itching Verified 01/25/22 15:16 enoxaparin [From Lovenox] Allergy Intermediate Rash Verified 01/25/22 15:16 Penicillins Allergy Unknown Unknown Verified 01/25/22 15:16 Seasonal Allergies Allergy Runny Nose Verified 01/25/22 15:16 venlafaxine [From Effexor] Allergy Constipatio Verified 01/25/22 15:16 n Exam Height,Weight and Vital Signs: Height 5 ft 6 in Weight 68.492 kg Last Vital Signs Temp 98.3 F 01/02/24 06:30 Pulse 78 01/02/24 06:30 Resp 18 01/02/24 06:30 BP 103/77 01/02/24 06:30 Pulse Ox 99 01/02/24 06:30 O2 Del Method Room Air 01/02/24 06:30 Airway Mallampati Class: II TM Dist: >3cm Neck ROM: Full Partial: Upper and Lower Heart: rrr Lungs: cta Assessment and Plan Assessment Anesthesia Assessment: Anesthesia Plan Discussed and Chart Reviewed Final Anesthetic Review Family History of Problems with Anesthesia: No History of Problems with Anesthesia: No NPO: Yes ASA Class: III Final Preanesthetic Review: No Changes in Pt Med Stat, Meds/Allgs Chart Reviewed and Consent Obtained/Reviewed Patient Risk: Intermediate Procedure Risk: Intermediate Anesthetic Plan Anesthetic Plan: GA Disposition: Standard PACU
[2024-01-02] MEDS: Lactated Ringers 1,000 ML 50 ML IVCONT (06:58)
--- NOTE | 2024-01-02 07:02 | MHC.SHP ---
Pre-Procedural Eval Section A - 24 Hr Update-Section A only Date of Service: 01/02/24 The patient is an INPATIENT: No Changes since office visit: No Cold of Flu in the past 2 weeks, No New Medical Problems, No Changes in Medication and No Patient answered all questions The patient has been examined within 24 hours of the surgical procedure. The History & Physical has been completed within 30 days and I have reviewed it.: Yes Section B - Complete if H&P > 30 days Chief Complaint: Major depressive disorder, recurrent, severe with Allergies: Allergies Allergy/AdvReac Type Severity Reaction Status Date / Time bee pollen Allergy Severe Anaphylaxis Verified 01/25/22 15:16 levofloxacin [From Levaquin] Allergy Severe Itching Verified 01/25/22 15:16 enoxaparin [From Lovenox] Allergy Intermediate Rash Verified 01/25/22 15:16 Penicillins Allergy Unknown Unknown Verified 01/25/22 15:16 Seasonal Allergies Allergy Runny Nose Verified 01/25/22 15:16 venlafaxine [From Effexor] Allergy Constipatio Verified 01/25/22 15:16 n Plan I have reviewed the history and physical and performed a pertinent physical examination on my patient. No changes have occurred unless specified. Time Spent With Patient Time: Total time managing care of this patient today ____ minutes.
--- NOTE | 2024-01-02 07:28 | HO.ECTPROC ---
ECT Procedure Note Diagnosis/Treatment Date of Service: 01/02/24 Diagnosis: Bipolar disorder Previous ECT Date: 12/19/23 Treatment: Maintenance Interval Clinical Notes: The patient reports euthymia, no side effects with the previous ECT. ECT done as bifrontal no complications. We gave her Midazolam 2 mg IVP after ECT since she usually wakes up slightly agitated. Time: Total time managing care of this patient today __30__ minutes. ECT Settings Device: THYMATRON DGx Electrode Placement: Bifrontal Program/Pulse Width: 0.50 Energy Percent: 100 Seizure Duration By EEG (in seconds): 36 By Motor Observation (in seconds): 26 Medications Administration General Anesthetic: Etomidate (12) Muscle Relaxant: Succinylcholine (100) Ancillary Medications Analgesics: Torodol - Pre ECT Anti-emetics: Zofran - Pre ECT Miscillaneous Medications: Midazolam (2 mg IVP after ECT) Airway Management Airway Management: Bag Mask Ventilation Treatment Recommendations No Changes Recommended: No change Pt Tolerated Procedure w/o Issue: Yes
== END 2024-01-02 09:46 | disposition home or self-care (01) ==
PROVIDERS: PCP Family Medicine; Visit Provider Psychiatry & Neurology Psychiatry
PROC: (CPT 90870; principal; 2024-01-02 07:30)
DX: F31.9 Bipolar disorder, unspecified (principal); F34.9 Persistent mood [affective] disorder, unspecified; Z79.899 Other long term (current) drug therapy; Z79.1 Long term (current) use of non-steroidal anti-inflammatories (NSAID); Z87.891 Personal history of nicotine dependence
CPT/HCPCS: 90870; J0330; J1885; J2250; J2405

== ENCOUNTER → 2024-01-02 06:03 | Outpatient (BNV) | payer OTHER, SELFPAY | PROVIDERS: PCP Family Medicine; Visit Provider Psychiatry & Neurology Psychiatry | DX: F33.3 Major depressive disorder, recurrent, severe with psychotic symptoms (principal) | CPT/HCPCS: 90870 ==

== ENCOUNTER → 2024-01-09 06:01 | Day surgery (SDC) | payer OTHER, SELFPAY | LOC: HO.SSS 06:05 | PROVIDERS: PCP Family Medicine; Visit Provider Psychiatry & Neurology Psychiatry | DX: F33.3 Major depressive disorder, recurrent, severe with psychotic symptoms (principal); Z53.9 Procedure and treatment not carried out, unspecified reason ==

== ENCOUNTER 2024-01-09 14:05 | Inpatient (IN) | payer OTHER, SELFPAY ==
--- NOTE | 2024-01-09 14:15 | ED.PSYCH ---
HPI - Psych General Chief Complaint: Psychiatric Symptoms Stated Complaint: depression Time Seen by Provider: 01/09/24 15:04 Source: patient and old records reviewed Mode of arrival: ambulatory Limitations: no limitations History of Present Illness ED Provider: EVA WALLIS Narrative: 68 yo female with PMH of GERD, bipolar disease, anxiety, arthritis, DVT who was just seen here and admitted to inpatient psych for ECT after transfer from [facility] - she was discharged on 12/20 she presents today with c/o worsening depression and she is not eating or sleeping. She was told to come in for more treatment by Dr. Rangel. complaint: feels depressed Onset (ago): month(s) Duration: getting worse History of same: Yes Relieving factors: none Exacerbating factors: other Associated psychiatric symptoms: depression Associated symptoms: denies other symptoms Treatments prior to arrival: none Related Data Previous Rx's ?Medication ?Instructions ?Recorded acetaminophen 325 mg tablet 650 mg (2 x 325 mg) PO Q6H PRN 12/21/23 Headache/Pain Mild Scale (1-3) 30 days #60 tabs benztropine 0.5 mg tablet 0.25 mg (1/2 x 0.5 mg) PO BID 30 12/21/23 days #30 tabs cyclobenzaprine 10 mg tablet 10 mg PO TID PRN muscle spasm 30 12/21/23 days #60 tabs docusate sodium 100 mg capsule 1 cap PO BID 30 days #60 caps 12/21/23 gabapentin 300 mg capsule 600 mg (2 x 300 mg) PO BEDTIME 30 12/21/23 days #60 caps hydroxyzine HCl 25 mg tablet 25 mg PO Q6H PRN Anxiety 30 days 12/21/23 #60 tabs loratadine 10 mg tablet (Claritin) 10 mg PO DAILY PRN Allergy 12/21/23 Symptoms 30 days #30 tabs omeprazole 20 mg capsule,delayed 20 mg PO BID 30 days #60 caps 12/21/23 release paliperidone palmitate 234 mg/1.5 234 mg (1.5 mL) IM Q30D 30 days 12/21/23 mL intramuscular syringe (Invega #1.5 mL Sustenna) thiamine mononitrate (vit B1) 100 100 mg PO BID 30 days #60 tabs 12/21/23 mg tablet trazodone 50 mg tablet 50 mg PO BEDTIME MRX1 PRN Insomnia 12/21/23 30 days #60 tabs eszopiclone 3 mg tablet (Lunesta) 3 mg PO BEDTIME #30 tabs 01/02/24 Allergies Allergy/AdvReac Type Severity Reaction Status Date / Time bee pollen Allergy Severe Anaphylaxis Verified 01/25/22 15:16 levofloxacin [From Levaquin] Allergy Severe Itching Verified 01/25/22 15:16 enoxaparin [From Lovenox] Allergy Intermediate Rash Verified 01/25/22 15:16 Seasonal Allergies Allergy Mild Runny Nose Verified 01/09/24 14:19 venlafaxine [From Effexor] Allergy Mild Constipatio Verified 01/09/24 14:19 n Penicillins Allergy Unknown Unknown Verified 01/25/22 15:16 Review of Systems Review of Systems: Constitutional : No Fever, No Chills ENT/Mouth : No Ear Pain, No Nasal Congestion, No sore throat Eyes: No Eye Pain, No Swelling, No Redness Cardiovascular : No Chest Pain, No SOB Respiratory : No Cough, No Sputum, No Dyspnea Gastrointestinal : No Nausea, No Vomiting, No Diarrhea, No Hematochezia, No Melena Genitourinary : No Dysuria, No Urinary Frequency, No Hematuria Musculoskeletal : No Myalgias Skin : No Skin Lesions, No rash Neuro : No Weakness, No Numbness, No Paresthesias, No Dizziness, No Headache Psych : positive Anxiety, positive Depression, no SI/HI All other systems reviewed and are negative PMFSH Past Medical History Attestation statement: The following information was validated with the patient. Source: old records reviewed Medical History History of skin cancer Hx of bladder problems VITO (generalized anxiety disorder) Murmur, cardiac Hx of thyroid nodule Osteopenia Hx of skin cancer, basal cell Seasonal allergies Insomnia Constipation GERD (gastroesophageal reflux disease) Anxiety History of electroconvulsive therapy Bipolar 1 disorder Surgical History Hx of colonoscopy H/O elbow surgery History of back surgery Family History Family History Mother Basal cell carcinoma (BCC) in situ of skin Osteoporosis Hyperlipidemia Father CAD (coronary artery disease) Alcoholism Sister Osteoporosis Depression Brother Cancer of tongue Cancer of skin Social History Social History Household Members: None Housing: Apartment Are you a primary home visit field care manager to a significant other at home: No Do you presently have visiting nurse or other home services: Yes Unable to assess alcohol history related to: Unable to respond Comment: 1:1 suoervision Patient Tobacco Use Status: Current everyday Tobacco user Tobacco use type: Cigarette Years Smoked: 30+, now vapes e-Cigarette/Vaping Use: Former Use Second Hand Smoke Exposure: No Substance Use Type: Crack/Cocaine Advance Directives: No Advance Directives Information Provided: No Do you have a plan to hurt others: No Plan service: No Current occupational status: unemployed and retired 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 presenting disorganized behavior when being interviewed. Physical Exam Vital Signs: Vital Signs: Last Vital Signs Temp 97.6 F 01/09/24 14:16 Pulse 87 01/09/24 14:16 Resp 16 01/09/24 14:16 BP 146/81 H 01/09/24 14:16 Pulse Ox 97 01/09/24 14:16 O2 Del Method Room Air 01/09/24 14:16 BMI result Body Mass Index 23.8 Appearance: Alert. Oriented X3. No acute distress. Eyes: Pupils equal, round and reactive to light. ENT: Pharynx normal. Neck: Normal inspection. Neck supple. CVS: Normal heart rate and rhythm. Pulses normal. Respiratory: No respiratory distress. Breath sounds normal. Abdomen: Soft and non-tender. Skin: Skin warm and dry. Normal skin color. Normal skin turgor. Extremities: No lower extremity edema. Neuro: Oriented X 3. No motor deficit. No sensory deficit. CN2-12 intact Course Course Course Narrative: This is an RME: Additional HPI, ROS, PE not included below will be deferred to primary provider. RME assessment and note performed by: Ashley Singh PA-C This is a [id number], with a hx of bipolar disorder, anxiety, who presents to the ER with complaints of depression and insomnia. Pt states that she is feeling very depressed. She state that she has been struggling since her discharge on 12/20. She was admitted psychiatrically on 10/31 and discharged on 12/20. No AH or VH. No SI or HI. Plan: Labs, UA, care team Reevaluation(s) Reevaluation #1: signed out to Liu pending labs and CARE team consult 4pm Medical Decision Making Medical Decision Making MDM Narrative: 68 yo female with PMH of GERD, bipolar disease, anxiety, arthritis, DVT here with c/o worsening depression told to come in by her psychiatrist for further treatment she denies any medical complaints or issues. At this time labs and CARE team consult ordered. Differential Diagnosis Differential Diagnoses: The differential diagnosis associated with the presentation includes depression Admission/Observation Consideration of admission/observation: Escalation of care including admission/observation considered physician observation started at 315pm pending CARE team Consult Healthcare Provider Management of the patient was discussed with: Behavioral Health Provider Lab Data [facility] Lab Attestation statement: I reviewed the patient's lab results. 01/09/24 15:36 01/09/24 15:36 Labs: Lab Results 01/09/24 Range/Units 15:25 Urine Color Yellow Urine Appearance Clear Urine pH 6.0 (5.0-9.0) Ur Specific [place] >= 1.030 H (1.005-1.025) Urine Protein Negative (Neg-Trace) mg/dL Urine Glucose (UA) Negative (Negative) mg/dL Urine Ketones Negative (Negative) mg/dL Urine Blood Negative (Negative) Urine Nitrite Negative (Negative) Ur Leukocyte Esterase Trace H (Negative) Urine Opiates Screen Not Detected (Not Detect) Ur Buprenorphine Scrn Not Detected (Not Detect) ng/mL Ur Oxycodone Screen Not Detected (Not Detect) ng/mL Urine Methadone Screen Not Detected (Not Detect) ng/mL Urine Fentanyl Screen Not Detected (Not Detect) Ur Barbiturates Screen Not Detected (Not Detect) Ur Phencyclidine Scrn Not Detected (Not Detect) Ur Amphetamines Screen Not Detected (Not Detect) U Benzodiazepines Scrn Not Detected (Not Detect) Urine Cocaine Screen Not Detected (Not Detect) U Marijuana (THC) Screen POSITIVE H (Not Detect) External Record Review External record reviewed: Inpatient record Discharge Plan Discharge Clinical Impression: Depression Qualifiers: Depression Type: unspecified Qualified Code(s): F32.A - Depression, unspecified Patient Disposition: Still a Patient Prescriptions: No Action eszopiclone [Lunesta] 3 mg tablet 3 mg PO BEDTIME Qty: 30 0RF acetaminophen 325 mg Tablet 650 mg PO Q6H PRN (Reason: Headache/Pain Mild Scale (1-3)) 30 Days Qty: 60 0RF benztropine 0.5 mg Tablet 0.25 mg PO BID 30 Days Qty: 30 0RF trazodone 50 mg Tablet 50 mg PO BEDTIME MRX1 PRN (Reason: Insomnia) 30 Days Qty: 60 0RF gabapentin 300 mg Capsule 600 mg PO BEDTIME 30 Days Qty: 60 0RF hydroxyzine HCl 25 mg Tablet 25 mg PO Q6H PRN (Reason: Anxiety) 30 Days Qty: 60 0RF Invega Sustenna 234 mg/1.5 mL Syringe 234 mg IM Q30D 30 Days Qty: 1.5 0RF thiamine mononitrate (vit B1) 100 mg Tablet 100 mg PO BID 30 Days Qty: 60 0RF cyclobenzaprine 10 mg tablet 10 mg PO TID PRN (Reason: muscle spasm) 30 Days Qty: 60 1RF docusate sodium 100 mg capsule 1 cap PO BID 30 Days Qty: 60 0RF omeprazole 20 mg capsule,delayed release(DR/EC) 20 mg PO BID 30 Days Qty: 60 0RF loratadine [Claritin] 10 mg Tablet 10 mg PO DAILY PRN (Reason: Allergy Symptoms) 30 Days Qty: 30 1RF Interventions: Erving-Suicide Risk Severity Scale Last Done: 01/09/24 15:45 Print Language: Turkish
[2024-01-09 14:16] VITALS: BP 146/81; PULSE 87; RESP 16; TEMP 36.4; O2SAT 97; BMI 23.8
[2024-01-09 15:31] LABS: Appearance Urine Clear; Color Urine Yellow; Glucose Urine UA Negative (Negative); Leukocyte Esterase Urine Trace (Negative); Nitrite Urine Negative (Negative); Specific Gravity - Urine >= 1.030 (1.005-1.025); UMIC TRIGGER UACC YES; Urine Blood Negative (Negative); Urine Ketones Negative (Negative); Urine Protein Negative (Neg-Trace)
[2024-01-09 15:40] LABS: MANUAL DIFF FLAG NO
[2024-01-09 15:43] LABS: Amphetamine Screen Urine Not Detected (Not Detect); Barbiturates, Urine Not Detected (Not Detect); Benzodiazepines Screen Urine Not Detected (Not Detect); Buprenorphine Scr Not Detected (Not Detect); Cannabinoid Screen Urine POSITIVE (Not Detect); Cocaine Screen Urine Not Detected (Not Detect); Fentanyl, urine Not Detected (Not Detect); Methadone Screen, Urine Not Detected (Not Detect); Opiate Screen Urine Not Detected (Not Detect); Oxycodone Screen Urine Not Detected (Not Detect); Phencyclidine Screen Urine Not Detected (Not Detect)
[2024-01-09 15:46] VITALS: RESP 16
[2024-01-09 15:47] LABS: Bacteria Urine None Seen (None Seen); Hyaline Casts Urine 0-2 /LPF (0-2); RBC Urine 0-2 /HPF (0-2); Squamous Epithelial Cell Urine 0-2 /HPF (0-2); WBC Urine 0-5 /HPF (0-5)
[2024-01-09 15:47] LABS: Basophils Percent Auto 0.5 % (0-2); Eosinophils Percent Auto 0.5 % (0-4); Hematocrit 35.3 % (37.0-47.0); Hemoglobin 11.9 g/dl (12.0-16.0); Imm Gran Abs Auto 0.02 X10*3/uL (0.00-0.03); Imm Gran Pct Auto 0.3 % (0.0-0.4); Lymphocytes Absolute Auto 1.7 X10*3/uL (1.2-4.9); Lymphocytes Percent Auto 27.8 % (20-40); Mean Corpuscular HGB Conc 33.7 g/dl (31.0-35.0); Mean Corpuscular Hemoglobin 31.2 pg (27.0-33.0); Mean Corpuscular Volume 92.4 fL (80.0-98.0); Mean Platelet Volume 8.5 fL (9.4-12.3); Monocytes Absolute Auto 0.5 X10*3/uL (0.1-1.2); Monocytes Percent Auto 8.5 % (2-11); Neutrophils Absolute Auto 3.7 x10*3/uL (2.0-8.3); Neutrophils Percent Auto 62.4 % (45-73); Platelet Count 247 X10*3/uL (160-400); Red Blood Count 3.82 X10*6/uL (4.20-5.50); Red Cell Distribution Width 14.5 % (11.0-16.0)
[2024-01-09 15:58] LABS: Alanine Aminotransferase 15 U/L (0-31); Albumin Level 4.2 g/dL (3.5-5.0); Alkaline Phosphatase 104 U/L (39-117); Anion Gap 11 (12-20); Aspartate Amino Transferase 18 U/L (5-31); Bilirubin Direct < 0.2 mg/dL (0.0-0.5); Bilirubin Total 0.2 mg/dL (0.0-1.0); Blood Urea Nitrogen 16 mg/dL (9-16); Calcium 9.3 mg/dL (8.4-10.2); Carbon Dioxide 24 mmol/L (22-29); Chloride 108 mmol/L (96-108); Creatinine Clr Calc Pharmacy 68.1; Estimated Glomerular Filt Rate > 60; Ethanol < 10 mg/dL; Glucose Random 125 mg/dL (60-115); Potassium 3.7 mmol/L (3.3-5.1); Sodium 139 mmol/L (135-145)
[2024-01-09] MEDS: Benztropine Mesylate 0.5 MG TABLET 0.25 MG PO (20:08)
[2024-01-09] MEDS: Thiamine HCL 100 MG TABLET PO (20:08)
[2024-01-09] MEDS: Docusate Sodium 100 MG CAPSULE PO (20:08)
[2024-01-09] MEDS: Gabapentin 300 MG CAPSULE 600 MG PO (20:09)
[2024-01-09] MEDS: hydrOXYzine HCL 25 MG TABLET PO (20:58)
[2024-01-09] MEDS: traZODone HCL 50 MG TABLET PO (20:58)
[2024-01-09 21:20] VITALS: BP 138/73; PULSE 77; RESP 16; TEMP 36.8; O2SAT 96
--- NOTE | 2024-01-10 00:48 | PC.NURSE ---
Admission Note Steffi Byersvasylharpreet,? a 68 year-old female herself, presented to our ED seeking help due to her worsening depression, high anxiety, and feeling unsafe at home. She was recently discharged from [facility]. She arrived in 190,? on CV, with an admitting diagnosis of Unspecified Depressive Disorder.?Patient is Alert & Oriented times four, thought content clear, thought process coherent and linear, and was able to contract for safety. Denied SI/HI/AVH. Endorses depression /10 and anxiety /10. Mood pleasant and affects congruent to mood. She ambulates independently. Skin checked/no issues observed. VSS. Labs results are unremarkable. Med rec completed in ED/MAR active/patient compliant with her HS medication. Patient compliant with the admission process. Unit orientation completed. Safety tool and treatment plan completed/signed/filed. Patient is placed on a 5 minute check by the provider/maintained as ordered.?
[2024-01-10] MEDS: Omeprazole 20 MG CAPSULE.DR PO ×2 (05:42→17:05)
[2024-01-10 05:47] VITALS: BMI 23.7
[2024-01-10 07:00] VITALS: BMI 24.0
[2024-01-10 08:00] VITALS: BP 116/63; PULSE 85; RESP 18; TEMP 36.3; O2SAT 97
[2024-01-10] MEDS: Benztropine Mesylate 0.5 MG TABLET 0.25 MG PO ×2 (08:31→20:56)
[2024-01-10] MEDS: Docusate Sodium 100 MG CAPSULE PO ×2 (08:31→20:55)
[2024-01-10] MEDS: Thiamine HCL 100 MG TABLET PO ×2 (08:31→20:55)
[2024-01-10 08:54] LABS: Estimated Average Glucose 97 mg/dL
[2024-01-10 09:09] LABS: Cholesterol 231 mg/dL (<200); HDL Cholesterol 70 mg/dL (>40); LDL Cholesterol Calculated 130 mg/dL (<100); Triglycerides 159 mg/dL (<150)
[2024-01-10 09:25] LABS: Free T4 (Free Thyroxine) 0.89 ng/dL (0.71-1.85); Thyroid Stimulating Hormone 0.53 uIU/mL (0.32-4.0)
[2024-01-10 09:42] LABS: Folate 5.7 ng/mL (> or = 4.0); Vitamin B12 401 pg/mL (200-900)
--- NOTE | 2024-01-10 13:59 | HO.PSYADMNOT ---
HPI Date of Service: 01/10/24 Chief Complaint: Bipolar Disorder Sources of Information: patient interviewed, chart reviewed and crisis/core team assessment reviewed HPI Subjective Notes: Gambino Warning and Conditional Voluntary Narrative: The patient is a 68-year-old female, single, with good social support, living independently with a past history of bipolar disorder who was admitted into this facility transferred from [facility] for ECT. The patient was discharged from this facility over a week ago after being successful with ECT and resolving catatonia. While she was doing outpatient ECT, the patient called several times asking for scripts of Lunesta and apparently, she went to ECT s and she was assessed by Dr. Rangel. The patient presented to the hospital with labile mood, depressed, disorganized unable to take care of herself. She was assessed by crisis and transferred back to the unit for continuation of treatment. On the intake interview, the patient looks confused, she stated that she was feeling very depressed with depressed mood, anhedonia, lack of energy and feelings of hopelessness. She stated that she does not have any new stressors that could have triggered this depressive episode. She was able to contract for safety and she was fully compliant with treatment. While she was in the emergency room, her U tox came back positive to cannabis. She adamantly denies use of alcohol. The patient was able to contract for safety and she wants to continue having ECT. The adoption social worker contact her family and apparently the patient had been more disorganized and the family is exhausted, it is clear that the patient at this moment is unsafe and needs to be in patient level of care. Past Psychiatric History: -Psych provider is [facility] in [place] -Per sister, pt has had depression since her early 20s and has suffered from unspecified chronic pain, surgeries. -Hx of multiple psych admissions to [facility] Medical Evaluation Reviewed: Yes [facility] Medical History History of skin cancer Hx of bladder problems VITO (generalized anxiety disorder) Murmur, cardiac Hx of thyroid nodule Osteopenia Hx of skin cancer, basal cell Seasonal allergies Insomnia Constipation GERD (gastroesophageal reflux disease) Anxiety History of electroconvulsive therapy Bipolar 1 disorder Surgical History Hx of colonoscopy H/O elbow surgery History of back surgery Family History: -Depression. In 1998 her great grandfather hung himself. Social History: -Pt has never been , no children. One dog -Pt's mother (age 88), sister, and brother are involved with pt's care. -She graduated h.s. And has bachelors in psychology. She worked at [facility]. Diagnostics Vital Signs (24Hr): Vital Signs - 24 hr 01/09/24 14:16 01/09/24 15:46 01/09/24 21:20 Temperature 97.6 F 98.3 F Pulse Rate 87 77 Respiratory Rate 16 16 16 Blood Pressure 146/81 H 138/73 Pulse Oximetry 97 96 Oxygen Delivery Method Room Air Room Air 01/10/24 08:00 Temperature 97.3 F Pulse Rate 85 Respiratory Rate 18 Blood Pressure 116/63 Pulse Oximetry 97 Oxygen Delivery Method Room Air BMI result Body Mass Index 24.0 Labs 01/09/24 15:36 01/09/24 15:36 Labs: Laboratory Results - last 48 hr 01/09/24 01/09/24 01/10/24 15:25 15:36 08:40 WBC 6.0 RBC 3.82 L Hgb 11.9 L Hct 35.3 L MCV 92.4 MCH 31.2 MCHC 33.7 RDW 14.5 Plt Count 247 MPV 8.5 L Immature Gran % (Auto) 0.3 Neut % (Auto) 62.4 Lymph % (Auto) 27.8 [place] % (Auto) 8.5 Eos % (Auto) 0.5 Baso % (Auto) 0.5 Lymph # (Auto) 1.7 [place] # (Auto) 0.5 Eos # (Auto) 0.0 Baso # (Auto) 0.0 Abs Immat Gran (auto) 0.02 Absolute Neuts (auto) 3.7 Absolute Nucleated RBC 0.000 Nucleated RBC % (auto) 0.0 Sodium 139 Potassium 3.7 Chloride 108 Carbon Dioxide 24 Anion Gap 11 L BUN 16 Creatinine 0.76 Estim Creat Clear Calc 68.1 Estimated GFR > 60 Random Glucose 125 H Estimat Average Glucose 97 Hemoglobin A1c % 5.0 Calcium 9.3 Magnesium 2.0 Total Bilirubin 0.2 Direct Bilirubin < 0.2 AST 18 ALT 15 Alkaline Phosphatase 104 Total Protein 7.0 Albumin 4.2 Triglycerides 159 H Cholesterol 231 H LDL Cholesterol, Calc 130 H HDL Cholesterol 70 Vitamin B12 401 Folate 5.7 TSH 0.53 Free T4 0.89 Urine Color Yellow Urine Appearance Clear Urine pH 6.0 Ur Specific [place] >= 1.030 H Urine Protein Negative Urine Glucose (UA) Negative Urine Ketones Negative Urine Blood Negative Urine Nitrite Negative Ur Leukocyte Esterase Trace H Urine RBC 0-2 Urine WBC 0-5 Ur Squamous Epith Cells 0-2 Urine Bacteria None Seen Hyaline Casts 0-2 Urine Opiates Screen Not Detected Ur Buprenorphine Scrn Not Detected Ur Oxycodone Screen Not Detected Urine Methadone Screen Not Detected Urine Fentanyl Screen Not Detected Ur Barbiturates Screen Not Detected Ur Phencyclidine Scrn Not Detected Ur Amphetamines Screen Not Detected U Benzodiazepines Scrn Not Detected Urine Cocaine Screen Not Detected U Marijuana (THC) Screen POSITIVE H Ethyl Alcohol < 10 Meds/Allergies Allergies Allergies Allergy/AdvReac Type Severity Reaction Status Date / Time bee pollen Allergy Severe Anaphylaxis Verified 01/25/22 15:16 levofloxacin [From Levaquin] Allergy Severe Itching Verified 01/25/22 15:16 enoxaparin [From Lovenox] Allergy Intermediate Rash Verified 01/25/22 15:16 Seasonal Allergies Allergy Mild Runny Nose Verified 01/09/24 14:19 venlafaxine [From Effexor] Allergy Mild Constipatio Verified 01/09/24 14:19 n Penicillins Allergy Unknown Unknown Verified 01/25/22 15:16 Mental Status Exam Mental Status Exam Patient Appearance: Appropriate and Unkempt Patient Orientation: Person and Situation Level of Consciousness: Awake Patient Behavior: Guarded and Passive Mood Description: Withdrawn Affect Description: Labile Patient Cognition Impaired: Yes Ability to Follow Directions: Fair Speech Pattern: Clear Hallucinations: None Delusions: Ideas of Reference Thought Process: Illogical, Distracted and Slowed Thinking Thought Content: positive for [place] and positive for Poverty of Content Judgement: Poor Assessment & Plan Assessment & Plan (1) Bipolar 1 disorder, depressed, severe: Status: Acute Code(s): F31.4 - Bipolar disorder, current episode depressed, severe, without psychotic features Plan The patient is an adult female with a past history of bipolar disorder and catatonia who was transferred a few months ago to this facility for ECT. The patient had a successful course of ECT with resolution of her catatonia and was discharged to the community. While she was in the community, having ECT as an outpatient the patient decompensated. She was reassessed by crisis and transfer here for continuation of care. Plan 1. Gather collateral information. 2. The patient is able to contract for safety so we are changing to 50 minute checks. 3. We will continue with her Invega Sustenna and other neuroleptics as a mood stabilizer. 4. We will need to have a new medical assessment for continuation of treatment with ECT. The patient is willing to continue having ECT treatment. Patient educated on: therapeutic strategies Reason for continued inpatient stay Substantial Risk for: inability to function, rapid decompensation and med/psych decompensation Statement Statement: I have reviewed the history and physical and performed a pertinent examination on my patient. No changes have occurred unless specified. If the History and Physical was not performed prior to admission, the Hospitalist's service will be consulted for completing the admission physical. Time Spent With Patient Time: Total time managing care of this patient today __45__ minutes.
[2024-01-10 20:00] VITALS: BP 141/81; PULSE 82; RESP 18; TEMP 36.3; O2SAT 97
[2024-01-10] MEDS: Gabapentin 300 MG CAPSULE 600 MG PO (20:54)
[2024-01-10] MEDS: hydrOXYzine HCL 25 MG TABLET PO (20:55)
[2024-01-10] MEDS: traZODone HCL 50 MG TABLET PO (20:55)
[2024-01-11] MEDS: Omeprazole 20 MG CAPSULE.DR PO ×2 (06:20→16:34)
[2024-01-11 07:55] VITALS: BP 135/76; PULSE 80; RESP 16; TEMP 35.8; O2SAT 96
[2024-01-11] MEDS: Docusate Sodium 100 MG CAPSULE PO ×2 (08:33→20:50)
[2024-01-11] MEDS: Benztropine Mesylate 0.5 MG TABLET 0.25 MG PO ×2 (08:33→20:49)
[2024-01-11] MEDS: Thiamine HCL 100 MG TABLET PO ×2 (08:33→20:50)
[2024-01-11] MEDS: hydrOXYzine HCL 25 MG TABLET PO ×2 (10:21→20:53)
--- NOTE | 2024-01-11 13:44 | HO.PM.IMCN ---
History of Present Illness Data of Consult Service Date: 01/11/24 Primary Care Provider: Theresa Nelson MD [facility] Reason for consult: ECT clearance Pt is a 68-year-old female with a PMH significant for LLE DVT in 2021, GERD, restless leg syndrome, hx of catatonia, and bipolar disorder with psychotic features?who is admitted to [facility] for [facility] Medical History History of skin cancer Hx of bladder problems VITO (generalized anxiety disorder) Murmur, cardiac Hx of thyroid nodule Osteopenia Hx of skin cancer, basal cell Seasonal allergies Insomnia Constipation GERD (gastroesophageal reflux disease) Anxiety History of electroconvulsive therapy Bipolar 1 disorder Family History Mother Basal cell carcinoma (BCC) in situ of skin Osteoporosis Hyperlipidemia Father CAD (coronary artery disease) Alcoholism Sister Osteoporosis Depression Brother Cancer of tongue Cancer of skin Surgical History Hx of colonoscopy H/O elbow surgery History of back surgery Social History Household Members: None Housing: Apartment Are you a primary day care director to a significant other at home: No Do you presently have visiting nurse or other home services: No Unable to assess alcohol history related to: Unable to respond Comment: 1:1 suoervision Patient Tobacco Use Status: Never used Tobacco Tobacco use type: Cigarette Years Smoked: 30+, now vapes e-Cigarette/Vaping Use: Currently Using Second Hand Smoke Exposure: No Substance Use Type: Crack/Cocaine service: No Current occupational status: unemployed and retired 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 Sexual orientation: Straight/Heterosexual Meds Allergies Allergy/AdvReac Type Severity Reaction Status Date / Time bee pollen Allergy Severe Anaphylaxis Verified 01/25/22 15:16 levofloxacin [From Levaquin] Allergy Severe Itching Verified 01/25/22 15:16 enoxaparin [From Lovenox] Allergy Intermediate Rash Verified 01/25/22 15:16 Seasonal Allergies Allergy Mild Runny Nose Verified 01/09/24 14:19 venlafaxine [From Effexor] Allergy Mild Constipatio Verified 01/09/24 14:19 n Penicillins Allergy Unknown Unknown Verified 01/25/22 15:16 Active Medications: Current Medications Acetaminophen (Acetaminophen 325 Mg Tablet) 650 mg PO Q6H PRN PRN Reason: Headache/Pain Mild Scale (1-3) Al Hydroxide/Mg Hydroxide (Magnesium Hydrox/Alum Hydrox 30 Ml Oral.Susp) 30 ml PO Q6H PRN PRN Reason: Heartburn/Nausea Benztropine Mesylate (Benztropine Mesylate 0.5 Mg Tablet) 0.25 mg PO BID [facility] Last Admin: 01/11/24 08:33 Dose: 0.25 mg Cyclobenzaprine HCl (Cyclobenzaprine Hcl 10 Mg Tablet) 10 mg PO TID PRN PRN Reason: muscle spasm Docusate Sodium (Docusate Sodium 100 Mg Capsule) 100 mg PO BID [facility] Last Admin: 01/11/24 08:33 Dose: 100 mg Gabapentin (Gabapentin 300 Mg Capsule) 600 mg PO BEDTIME [facility] Last Admin: 01/10/24 20:54 Dose: 600 mg Hydroxyzine HCl (Hydroxyzine Hcl 25 Mg Tablet) 25 mg PO Q6H PRN PRN Reason: Anxiety Last Admin: 01/11/24 10:21 Dose: 25 mg Loratadine (Loratadine 10 Mg Tablet) 10 mg PO DAILY PRN PRN Reason: Allergy Symptoms Magnesium Hydroxide (Milk Of Magnesia 30 Ml Oral.Susp) 30 ml PO DAILY PRN PRN Reason: Constipation Mirtazapine (Mirtazapine 7.5 Mg Tablet) 7.5 mg PO BEDTIME [facility] Non-Formulary Medication (Eszopiclone [Lunesta]) 3 mg PO BEDTIME [facility] Omeprazole (Omeprazole 20 Mg Capsule.Dr) 20 mg PO BID@0630,1630 [facility] Last Admin: 01/11/24 06:20 Dose: 20 mg Paliperidone Palmitate (Paliperidone Palmitate 234 Mg/1.5 Ml Syringe) 234 mg IM Q30D [facility] Thiamine HCl (Thiamine Hcl 100 Mg Tablet) 100 mg PO BID [facility] Last Admin: 01/11/24 08:33 Dose: 100 mg Trazodone HCl (Trazodone Hcl 50 Mg Tablet) 50 mg PO BEDTIME MRX1 PRN PRN Reason: Insomnia Last Admin: 01/10/24 20:55 Dose: 50 mg Physical Exam Vital Signs and Narrative: Vital Signs: Last Vital Signs Temp 96.4 F L 01/11/24 07:55 Pulse 80 01/11/24 07:55 Resp 16 01/11/24 07:55 BP 135/76 01/11/24 07:55 Pulse Ox 96 01/11/24 07:55 O2 Del Method Room Air 01/11/24 07:55 BMI result Body Mass Index 24.0 Results Labs 01/09/24 15:36 01/09/24 15:36
--- NOTE | 2024-01-11 14:02 | HO.PSYCHPN ---
Subjective Subjective Date of Service: 01/11/24 Reason For Visit: Bipolar Disorder Subjective Notes: Conditional Voluntary Interim History: The nursing staff reported the patient had been common cooperative, she reported feeling depressed. She slept 8 hours. The social media designer reported the family was contacted her brother was very angry. [facility] was contacted and apparently the patient refused services. The patient does not want to go to a facility even though that her family wants. On interview the patient reports depression she agreed to start a low dose of Remeron tonight. Mental Status Exam Mental Status Exam Patient Appearance: Appropriate Patient Orientation: Person and Situation Level of Consciousness: Awake and Appropriate Patient Behavior: Cooperative and Passive Mood Description: Calm Affect Description: Constricted Patient Cognition Impaired: Yes Ability to Follow Directions: Good Speech Pattern: Clear Hallucinations: None Delusions: Not Present Thought Process: Distracted and Slowed Thinking Thought Content: positive for [place] and positive for Poverty of Content Judgement: Fair Diagnostics Vital Signs (24Hr): Vital Signs - 24 hr 01/10/24 20:00 01/11/24 07:55 Temperature 97.4 F 96.4 F L Pulse Rate 82 80 Respiratory Rate 18 16 Blood Pressure 141/81 H 135/76 Pulse Oximetry 97 96 Oxygen Delivery Method Room Air Room Air BMI result Body Mass Index 24.0 Labs 01/09/24 15:36 01/09/24 15:36 Labs: Laboratory Results - last 48 hr 01/09/24 01/09/24 01/10/24 15:25 15:36 08:40 WBC 6.0 RBC 3.82 L Hgb 11.9 L Hct 35.3 L MCV 92.4 MCH 31.2 MCHC 33.7 RDW 14.5 Plt Count 247 MPV 8.5 L Immature Gran % (Auto) 0.3 Neut % (Auto) 62.4 Lymph % (Auto) 27.8 Hall % (Auto) 8.5 Eos % (Auto) 0.5 Baso % (Auto) 0.5 Lymph # (Auto) 1.7 Hall # (Auto) 0.5 Eos # (Auto) 0.0 Baso # (Auto) 0.0 Abs Immat Gran (auto) 0.02 Absolute Neuts (auto) 3.7 Absolute Nucleated RBC 0.000 Nucleated RBC % (auto) 0.0 Sodium 139 Potassium 3.7 Chloride 108 Carbon Dioxide 24 Anion Gap 11 L BUN 16 Creatinine 0.76 Estim Creat Clear Calc 68.1 Estimated GFR > 60 Random Glucose 125 H Estimat Average Glucose 97 Hemoglobin A1c % 5.0 Calcium 9.3 Magnesium 2.0 Total Bilirubin 0.2 Direct Bilirubin < 0.2 AST 18 ALT 15 Alkaline Phosphatase 104 Total Protein 7.0 Albumin 4.2 Triglycerides 159 H Cholesterol 231 H LDL Cholesterol, Calc 130 H HDL Cholesterol 70 Vitamin B12 401 Folate 5.7 TSH 0.53 Free T4 0.89 Urine Color Yellow Urine Appearance Clear Urine pH 6.0 Ur Specific [place] >= 1.030 H Urine Protein Negative Urine Glucose (UA) Negative Urine Ketones Negative Urine Blood Negative Urine Nitrite Negative Ur Leukocyte Esterase Trace H Urine RBC 0-2 Urine WBC 0-5 Ur Squamous Epith Cells 0-2 Urine Bacteria None Seen Hyaline Casts 0-2 Urine Opiates Screen Not Detected Ur Buprenorphine Scrn Not Detected Ur Oxycodone Screen Not Detected Urine Methadone Screen Not Detected Urine Fentanyl Screen Not Detected Ur Barbiturates Screen Not Detected Ur Phencyclidine Scrn Not Detected Ur Amphetamines Screen Not Detected U Benzodiazepines Scrn Not Detected Urine Cocaine Screen Not Detected U Marijuana (THC) Screen POSITIVE H Ethyl Alcohol < 10 Medications Medications Current Medications Acetaminophen (Acetaminophen 325 Mg Tablet) 650 mg PO Q6H PRN PRN Reason: Headache/Pain Mild Scale (1-3) Al Hydroxide/Mg Hydroxide (Magnesium Hydrox/Alum Hydrox 30 Ml Oral.Susp) 30 ml PO Q6H PRN PRN Reason: Heartburn/Nausea Benztropine Mesylate (Benztropine Mesylate 0.5 Mg Tablet) 0.25 mg PO BID [facility]S [facility]CLUDE 234 BEDS AT [facility] Last Admin: 01/11/24 08:33 Dose: 0.25 mg Cyclobenzaprine HCl (Cyclobenzaprine Hcl 10 Mg Tablet) 10 mg PO TID PRN PRN Reason: muscle spasm Docusate Sodium (Docusate Sodium 100 Mg Capsule) 100 mg PO BID COUNTS INCLUDE 234 BEDS AT THE [facility] Last Admin: 01/11/24 08:33 Dose: 100 mg Gabapentin (Gabapentin 300 Mg Capsule) 600 mg PO BEDTIME COUNTS INCLUDE 234 BEDS AT THE [facility] Last Admin: 01/10/24 20:54 Dose: 600 mg Hydroxyzine HCl (Hydroxyzine Hcl 25 Mg Tablet) 25 mg PO Q6H PRN PRN Reason: Anxiety Last Admin: 01/11/24 10:21 Dose: 25 mg Loratadine (Loratadine 10 Mg Tablet) 10 mg PO DAILY PRN PRN Reason: Allergy Symptoms Magnesium Hydroxide (Milk Of Magnesia 30 Ml Oral.Susp) 30 ml PO DAILY PRN PRN Reason: Constipation Mirtazapine (Mirtazapine 7.5 Mg Tablet) 7.5 mg PO BEDTIME [facility] Non-Formulary Medication (Eszopiclone [Lunesta]) 3 mg PO BEDTIME [facility] Omeprazole (Omeprazole 20 Mg Capsule.Dr) 20 mg PO BID@0630,1630 [facility] Last Admin: 01/11/24 06:20 Dose: 20 mg Paliperidone Palmitate (Paliperidone Palmitate 234 Mg/1.5 Ml Syringe) 234 mg IM Q30D [facility] Thiamine HCl (Thiamine Hcl 100 Mg Tablet) 100 mg PO BID [facility] Last Admin: 01/11/24 08:33 Dose: 100 mg Trazodone HCl (Trazodone Hcl 50 Mg Tablet) 50 mg PO BEDTIME MRX1 PRN PRN Reason: Insomnia Last Admin: 01/10/24 20:55 Dose: 50 mg Allergies Allergies Allergy/AdvReac Type Severity Reaction Status Date / Time bee pollen Allergy Severe Anaphylaxis Verified 01/25/22 15:16 levofloxacin [From Levaquin] Allergy Severe Itching Verified 01/25/22 15:16 enoxaparin [From Lovenox] Allergy Intermediate Rash Verified 01/25/22 15:16 Seasonal Allergies Allergy Mild Runny Nose Verified 01/09/24 14:19 venlafaxine [From Effexor] Allergy Mild Constipatio Verified 01/09/24 14:19 n Penicillins Allergy Unknown Unknown Verified 01/25/22 15:16 Assessment & Plan Assessment & Plan (1) Bipolar 1 disorder, depressed, severe: Status: Acute Code(s): F31.4 - Bipolar disorder, current episode depressed, severe, without psychotic features Plan The patient is an adult female with a past history of bipolar disorder and catatonia who was transferred a few months ago to this facility for ECT. The patient had a successful course of ECT with resolution of her catatonia and was discharged to the community. While she was in the community, having ECT as an outpatient the patient decompensated. She was reassessed by crisis and transfer here for continuation of care. Plan 1. Gather collateral information. 2. The patient is able to contract for safety so we are changing to 50 minute checks. 3. We will continue with her Invega Sustenna and other neuroleptics as a mood stabilizer. 4. We will need to have a new medical assessment for continuation of treatment with ECT. The patient is willing to continue having ECT treatment. She is scheduled for next Sunday. 5. Start Remeron 7.5 mg p.o. q.h.s. to target depression Reason for continued inpatient stay Substantial Risk for: inability to function, rapid decompensation and med/psych decompensation Time Spent With Patient Time: Total time managing care of this patient today __20__ minutes.
--- NOTE | 2024-01-11 15:58 | P.EN_ITS ---
Event Note Date of Service: 01/11/24 Event Note: Pt is a 68-year-old female with a PMH significant for LLE DVT in 2021, GERD, restless leg syndrome, hx of catatonia, and bipolar disorder with psychotic features?who is admitted to [facility] unit for increased depression. Hospitalist consult for ECT clearance. Patient recently admitted to [facility] for a prolonged hospitalization from 11/01-12/20/2023 where she initially presented with psychosis, paranoia, and intermittent catatonia. Underwent ECT therapy to good effect with last session on 12/20/2023. Patient had a past history of chest pain and elevated troponins after ECT. Subsequently underwent significant cardiac workup that was negative: Echocardiogram with LVEF of 55-60% with no wall motion abnormalities; myocardial perfusion imaging study showed a small area of mild intensity apical ischemia, the cardiac catheterization in 2021 showed normal coronary arteries. Seen by cardiology on 11/04/2023 and cleared to proceed with ECT therapy. The patient is seen and evaluated on the unit where she is sitting comfortably in a chair. Denies history of cerebral hemorrhage or ischemic stroke, space-occupying intracranial lesion, TBI, or history of seizure. No CAD, bleeding disorders, unstable vascular aneurysm, or severe pulmonary conditions. No reported difficulty with anesthesia. EKG has been ordered and will be reviewed once completed. Currently, exam and medical history review indicate no contraindication to planned procedure. Patient c urrently without chest pain or pressure, no palpitations. Patient previously cleared by cardiology and no indication for repeat Cardiology consult at this time. Time Spent With Patient Time: Total time managing care of this patient today ____ minutes.
[2024-01-11 20:00] VITALS: BP 133/69; PULSE 80; RESP 18; TEMP 37.1; O2SAT 96
[2024-01-11] MEDS: traZODone HCL 50 MG TABLET PO (20:48)
[2024-01-11] MEDS: Mirtazapine 7.5 MG TABLET PO (20:48)
[2024-01-11] MEDS: Gabapentin 300 MG CAPSULE 600 MG PO (20:49)
[2024-01-12] MEDS: Omeprazole 20 MG CAPSULE.DR PO ×2 (05:49→16:36)
[2024-01-12 08:00] VITALS: BP 139/72; PULSE 80; RESP 18; TEMP 36.4; O2SAT 97
[2024-01-12] MEDS: Benztropine Mesylate 0.5 MG TABLET 0.25 MG PO ×2 (08:37→20:50)
[2024-01-12] MEDS: Thiamine HCL 100 MG TABLET PO ×2 (08:37→20:52)
[2024-01-12] MEDS: Docusate Sodium 100 MG CAPSULE PO ×2 (08:38→20:50)
[2024-01-12] MEDS: Cariprazine HCl 1.5 MG CAPSULE PO (13:40)
[2024-01-12] MEDS: Nicotine Polacrilex 2 MG GUM BUCCAL (13:40)
[2024-01-12 20:00] VITALS: BP 139/80; PULSE 84; RESP 18; TEMP 36.7; O2SAT 97
[2024-01-12] MEDS: Mirtazapine 7.5 MG TABLET PO (20:50)
[2024-01-12] MEDS: Gabapentin 300 MG CAPSULE 600 MG PO (20:50)
[2024-01-12] MEDS: hydrOXYzine HCL 25 MG TABLET PO (20:51)
--- NOTE | 2024-01-12 23:08 | P.PNPSI_ITS ---
Subjective Subjective Date of Service: 01/12/24 Reason For Visit: Bipolar Disorder Subjective Notes: Conditional Voluntary Interim History: The nursing staff reported the patient had been common cooperative, she reported feeling depressed. She slept 8 hours. The social service manager reported the family was contacted her brother was very angry. [facility] was contacted and apparently the patient refused services. The patient does not want to go to a facility even though that her family wants. On interview the patient reports depression she agreed to start a low dose of Remeron tonight. 01/12/2024 ECT scheduled Vraylar started 1.5 mg Medication Compliance: Yes Review of Systems Acute medical concerns: No Mental Status Exam Mental Status Exam Patient Appearance: Appropriate Patient Orientation: Person and Situation Level of Consciousness: Awake and Appropriate Patient Behavior: Cooperative and Passive Mood Description: Calm Affect Description: Constricted Patient Cognition Impaired: Yes Ability to Follow Directions: Good Speech Pattern: Clear Hallucinations: None Delusions: Not Present Thought Process: Distracted and Slowed Thinking Thought Content: positive for [place] and positive for Poverty of Content Judgement: Fair Diagnostics Vital Signs (24Hr): Vital Signs - 24 hr 01/12/24 08:00 01/12/24 20:00 Temperature 97.6 F 98.1 F Pulse Rate 80 84 Respiratory Rate 18 18 Blood Pressure 139/72 139/80 Pulse Oximetry 97 97 Oxygen Delivery Method Room Air Room Air BMI result Body Mass Index 24.0 Labs 01/09/24 15:36 01/09/24 15:36 Medications Medications Current Medications Acetaminophen (Acetaminophen 325 Mg Tablet) 650 mg PO Q6H PRN PRN Reason: Headache/Pain Mild Scale (1-3) Al Hydroxide/Mg Hydroxide (Magnesium Hydrox/Alum Hydrox 30 Ml Oral.Susp) 30 ml PO Q6H PRN PRN Reason: Heartburn/Nausea Benztropine Mesylate (Benztropine Mesylate 0.5 Mg Tablet) 0.25 mg PO BID [facility] Last Admin: 01/12/24 20:50 Dose: 0.25 mg Cariprazine (Cariprazine Hcl 1.5 Mg Capsule) 1.5 mg PO DAILY [facility] Last Admin: 01/12/24 13:40 Dose: 1.5 mg Cyclobenzaprine HCl (Cyclobenzaprine Hcl 10 Mg Tablet) 10 mg PO TID PRN PRN Reason: muscle spasm Docusate Sodium (Docusate Sodium 100 Mg Capsule) 100 mg PO BID [facility] Last Admin: 01/12/24 20:50 Dose: 100 mg Gabapentin (Gabapentin 300 Mg Capsule) 600 mg PO BEDTIME [facility] Last Admin: 01/12/24 20:50 Dose: 600 mg Hydroxyzine HCl (Hydroxyzine Hcl 25 Mg Tablet) 25 mg PO Q6H PRN PRN Reason: Anxiety Last Admin: 01/12/24 20:51 Dose: 25 mg Loratadine (Loratadine 10 Mg Tablet) 10 mg PO DAILY PRN PRN Reason: Allergy Symptoms Magnesium Hydroxide (Milk Of Magnesia 30 Ml Oral.Susp) 30 ml PO DAILY PRN PRN Reason: Constipation Mirtazapine (Mirtazapine 7.5 Mg Tablet) 7.5 mg PO BEDTIME [facility] Last Admin: 01/12/24 20:50 Dose: 7.5 mg Nicotine Polacrilex (Nicotine Polacrilex 2 Mg Gum) 2 mg [facility] Q2H PRN PRN Reason: Nicotine Cravings Last Admin: 01/12/24 13:40 Dose: 2 mg Non-Formulary Medication (Eszopiclone [Lunesta]) 3 mg PO BEDTIME [facility] Omeprazole (Omeprazole 20 Mg Capsule.Dr) 20 mg PO BID@0630,1630 [facility] Last Admin: 01/12/24 16:36 Dose: 20 mg Paliperidone Palmitate (Paliperidone Palmitate 234 Mg/1.5 Ml Syringe) 234 mg IM Q30D [facility] Thiamine HCl (Thiamine Hcl 100 Mg Tablet) 100 mg PO BID [facility] Last Admin: 01/12/24 20:52 Dose: 100 mg Trazodone HCl (Trazodone Hcl 50 Mg Tablet) 50 mg PO BEDTIME MRX1 PRN PRN Reason: Insomnia Last Admin: 01/11/24 20:48 Dose: 50 mg Allergies Allergies Allergy/AdvReac Type Severity Reaction Status Date / Time bee pollen Allergy Severe Anaphylaxis Verified 01/25/22 15:16 levofloxacin [From Levaquin] Allergy Severe Itching Verified 01/25/22 15:16 enoxaparin [From Lovenox] Allergy Intermediate Rash Verified 01/25/22 15:16 Seasonal Allergies Allergy Mild Runny Nose Verified 01/09/24 14:19 venlafaxine [From Effexor] Allergy Mild Constipatio Verified 01/09/24 14:19 n Penicillins Allergy Unknown Unknown Verified 01/25/22 15:16 Assessment & Plan Assessment & Plan (1) Bipolar 1 disorder, depressed, severe: Status: Acute Code(s): F31.4 - Bipolar disorder, current episode depressed, severe, without psychotic features Plan The patient is an adult female with a past history of bipolar disorder and catatonia who was transferred a few months ago to this facility for ECT. The patient had a successful course of ECT with resolution of her catatonia and was discharged to the community. While she was in the community, having ECT as an outpatient the patient decompensated. She was reassessed by crisis and transfer here for continuation of care. Plan 1. Gather collateral information. 2. The patient is able to contract for safety so we are changing to 50 minute checks. 3. We will continue with her Invega Sustenna and other neuroleptics as a mood stabilizer. 4. We will need to have a new medical assessment for continuation of treatment with ECT. The patient is willing to continue having ECT treatment. She is scheduled for next Sunday. 5. Start Remeron 7.5 mg p.o. q.h.s. to target depression 01/12/2024 Vraylar ECT scheduled Patient educated on: diagnosis, medication risk/benefits and ECT Informed Consent: further education needed Reason for continued inpatient stay Substantial Risk for: harm to self and inability to function Time Spent With Patient Time: Total time managing care of this patient today ____ minutes.
[2024-01-13] MEDS: Omeprazole 20 MG CAPSULE.DR PO ×2 (06:23→16:16)
[2024-01-13 07:45] VITALS: BP 107/64; PULSE 79; RESP 18; TEMP 36.2; O2SAT 97
[2024-01-13] MEDS: Benztropine Mesylate 0.5 MG TABLET 0.25 MG PO ×2 (07:48→21:01)
[2024-01-13] MEDS: Thiamine HCL 100 MG TABLET PO ×2 (07:48→21:00)
[2024-01-13] MEDS: Cariprazine HCl 1.5 MG CAPSULE PO (07:48)
[2024-01-13] MEDS: Nicotine Polacrilex 2 MG GUM BUCCAL (07:48)
[2024-01-13] MEDS: Docusate Sodium 100 MG CAPSULE PO ×2 (07:48→21:01)
--- NOTE | 2024-01-13 13:02 | HO.PSYCHPN ---
Subjective Subjective Date of Service: 01/13/24 Reason For Visit: Bipolar Disorder Subjective Notes: Conditional Voluntary Interim History: Patient started on Vraylar 1.5 mg not due for next Invega injection for a week re-evaluate ECT in 4 days monitor response to Vraylar unclear if patient can be stabilized in current environment Mental Status Exam Mental Status Exam Patient Appearance: Appropriate Patient Orientation: Person and Situation Level of Consciousness: Awake and Appropriate Patient Behavior: Cooperative and Passive Mood Description: Calm Affect Description: Constricted Patient Cognition Impaired: Yes Ability to Follow Directions: Good Speech Pattern: Clear Hallucinations: None Delusions: Not Present Thought Process: Distracted and Slowed Thinking Thought Content: positive for [place] and positive for Poverty of Content Judgement: Fair Diagnostics Vital Signs (24Hr): Vital Signs - 24 hr 01/12/24 20:00 01/13/24 07:45 Temperature 98.1 F 97.2 F Pulse Rate 84 79 Respiratory Rate 18 18 Blood Pressure 139/80 107/64 Pulse Oximetry 97 97 Oxygen Delivery Method Room Air Room Air BMI result Body Mass Index 24.0 Labs 01/09/24 15:36 01/09/24 15:36 Medications Medications Current Medications Acetaminophen (Acetaminophen 325 Mg Tablet) 650 mg PO Q6H PRN PRN Reason: Headache/Pain Mild Scale (1-3) Al Hydroxide/Mg Hydroxide (Magnesium Hydrox/Alum Hydrox 30 Ml Oral.Susp) 30 ml PO Q6H PRN PRN Reason: Heartburn/Nausea Benztropine Mesylate (Benztropine Mesylate 0.5 Mg Tablet) 0.25 mg PO BID [facility] Last Admin: 01/13/24 07:48 Dose: 0.25 mg Cariprazine (Cariprazine Hcl 1.5 Mg Capsule) 1.5 mg PO DAILY [facility] Last Admin: 01/13/24 07:48 Dose: 1.5 mg Cyclobenzaprine HCl (Cyclobenzaprine Hcl 10 Mg Tablet) 10 mg PO TID PRN PRN Reason: muscle spasm Docusate Sodium (Docusate Sodium 100 Mg Capsule) 100 mg PO BID [facility] Last Admin: 01/13/24 07:48 Dose: 100 mg Gabapentin (Gabapentin 300 Mg Capsule) 600 mg PO BEDTIME [facility] Last Admin: 01/12/24 20:50 Dose: 600 mg Hydroxyzine HCl (Hydroxyzine Hcl 25 Mg Tablet) 25 mg PO Q6H PRN PRN Reason: Anxiety Last Admin: 01/12/24 20:51 Dose: 25 mg Loratadine (Loratadine 10 Mg Tablet) 10 mg PO DAILY PRN PRN Reason: Allergy Symptoms Magnesium Hydroxide (Milk Of Magnesia 30 Ml Oral.Susp) 30 ml PO DAILY PRN PRN Reason: Constipation Mirtazapine (Mirtazapine 7.5 Mg Tablet) 7.5 mg PO BEDTIME [facility] Last Admin: 01/12/24 20:50 Dose: 7.5 mg Nicotine Polacrilex (Nicotine Polacrilex 2 Mg Gum) 2 mg [facility] Q2H PRN PRN Reason: Nicotine Cravings Last Admin: 01/13/24 07:48 Dose: 2 mg Non-Formulary Medication (Eszopiclone [Lunesta]) 3 mg PO BEDTIME [facility] Omeprazole (Omeprazole 20 Mg Capsule.Dr) 20 mg PO BID@0630,1630 [facility] Last Admin: 01/13/24 06:23 Dose: 20 mg Paliperidone Palmitate (Paliperidone Palmitate 234 Mg/1.5 Ml Syringe) 234 mg IM Q30D [facility] Thiamine HCl (Thiamine Hcl 100 Mg Tablet) 100 mg PO BID [facility] Last Admin: 01/13/24 07:48 Dose: 100 mg Trazodone HCl (Trazodone Hcl 50 Mg Tablet) 50 mg PO BEDTIME MRX1 PRN PRN Reason: Insomnia Last Admin: 01/11/24 20:48 Dose: 50 mg Allergies Allergies Allergy/AdvReac Type Severity Reaction Status Date / Time bee pollen Allergy Severe Anaphylaxis Verified 01/25/22 15:16 levofloxacin [From Levaquin] Allergy Severe Itching Verified 01/25/22 15:16 enoxaparin [From Lovenox] Allergy Intermediate Rash Verified 01/25/22 15:16 Seasonal Allergies Allergy Mild Runny Nose Verified 01/09/24 14:19 venlafaxine [From Effexor] Allergy Mild Constipatio Verified 01/09/24 14:19 n Penicillins Allergy Unknown Unknown Verified 01/25/22 15:16 Assessment & Plan Assessment & Plan (1) Bipolar 1 disorder, depressed, severe: Status: Acute Code(s): F31.4 - Bipolar disorder, current episode depressed, severe, without psychotic features Plan The patient is an adult female with a past history of bipolar disorder and catatonia who was transferred a few months ago to this facility for ECT. The patient had a successful course of ECT with resolution of her catatonia and was discharged to the community. While she was in the community, having ECT as an outpatient the patient decompensated. She was reassessed by crisis and transfer here for continuation of care. Plan 1. Gather collateral information. 2. The patient is able to contract for safety so we are changing to 50 minute checks. 3. We will continue with her Invega Sustenna and other neuroleptics as a mood stabilizer. 4. We will need to have a new medical assessment for continuation of treatment with ECT. The patient is willing to continue having ECT treatment. She is scheduled for next Sunday. 5. Start Remeron 7.5 mg p.o. q.h.s. to target depression 01/12/2024 Vraylar ECT scheduled 01/13/2024 ECT scheduled for 4 days monitor response to Vraylar 1.5 mg Patient educated on: medication risk/benefits Informed Consent: further education needed Reason for continued inpatient stay Substantial Risk for: harm to self, inability to function and med/psych decompensation Time Spent With Patient Time: Total time managing care of this patient today ____ minutes.
[2024-01-13 19:13] VITALS: BP 115/78; PULSE 73; TEMP 36.3; O2SAT 97
[2024-01-13] MEDS: Gabapentin 300 MG CAPSULE 600 MG PO (21:00)
[2024-01-13] MEDS: Mirtazapine 7.5 MG TABLET PO (21:01)
[2024-01-13] MEDS: traZODone HCL 50 MG TABLET PO (21:12)
[2024-01-13] MEDS: hydrOXYzine HCL 25 MG TABLET PO (21:12)
--- NOTE | 2024-01-14 | ECG_ITS ---
Test Reason : ECT prep Blood Pressure : / mmHG Vent. Rate : 072 BPM Atrial Rate : 072 BPM P-R Int : 140 ms QRS Dur : 070 ms QT Int : 390 ms P-R-T Axes : 012 032 028 degrees QTc Int : 427 ms Normal sinus rhythm Low voltage QRS Cannot rule out Anterior infarct , age undetermined Abnormal ECG When compared with ECG of 02-NOV-2023 09:24, T wave amplitude has decreased in Anterior leads Referred By: Daryn Meredith Electronically Signed By:CHARU SCHULER MD
[2024-01-14] MEDS: Omeprazole 20 MG CAPSULE.DR PO ×2 (06:08→16:29)
[2024-01-14 08:10] VITALS: BP 141/85; PULSE 97; RESP 18; TEMP 36.3; O2SAT 97
[2024-01-14] MEDS: Benztropine Mesylate 0.5 MG TABLET 0.25 MG PO ×2 (09:25→20:20)
[2024-01-14] MEDS: Thiamine HCL 100 MG TABLET PO ×2 (09:25→20:21)
[2024-01-14] MEDS: Docusate Sodium 100 MG CAPSULE PO ×2 (09:25→20:19)
[2024-01-14] MEDS: Cariprazine HCl 1.5 MG CAPSULE PO (09:25)
--- NOTE | 2024-01-14 17:55 | P.PNPSI_ITS ---
Subjective Subjective Date of Service: 01/14/24 Reason For Visit: Bipolar Disorder Interim History: calm, cooperative, pleasant. depressed, looking forward to ECT Weds. per staff, very depressed. slept about 9 hours. Mental Status Exam Mental Status Exam Patient Appearance: Appropriate Patient Orientation: Person and Situation Level of Consciousness: Awake and Appropriate Patient Behavior: Cooperative and Passive Mood Description: Calm Affect Description: Constricted Patient Cognition Impaired: Yes Ability to Follow Directions: Good Speech Pattern: Clear Hallucinations: None Delusions: Not Present Thought Process: Distracted and Slowed Thinking Thought Content: positive for [place] and positive for Poverty of Content Judgement: Fair Diagnostics Vital Signs (24Hr): Vital Signs - 24 hr 01/13/24 19:13 01/14/24 08:10 Temperature 97.3 F 97.3 F Pulse Rate 73 97 Respiratory Rate 18 Blood Pressure 115/78 141/85 H Pulse Oximetry 97 97 Oxygen Delivery Method Room Air Room Air BMI result Body Mass Index 24.0 Labs 01/09/24 15:36 01/09/24 15:36 Medications Medications Current Medications Acetaminophen (Acetaminophen 325 Mg Tablet) 650 mg PO Q6H PRN PRN Reason: Headache/Pain Mild Scale (1-3) Al Hydroxide/Mg Hydroxide (Magnesium Hydrox/Alum Hydrox 30 Ml Oral.Susp) 30 ml PO Q6H PRN PRN Reason: Heartburn/Nausea Benztropine Mesylate (Benztropine Mesylate 0.5 Mg Tablet) 0.25 mg PO BID [facility] Last Admin: 01/14/24 09:25 Dose: 0.25 mg Cariprazine (Cariprazine Hcl 1.5 Mg Capsule) 1.5 mg PO DAILY [facility] Last Admin: 01/14/24 09:25 Dose: 1.5 mg Cyclobenzaprine HCl (Cyclobenzaprine Hcl 10 Mg Tablet) 10 mg PO TID PRN PRN Reason: muscle spasm Docusate Sodium (Docusate Sodium 100 Mg Capsule) 100 mg PO BID [facility] Last Admin: 01/14/24 09:25 Dose: 100 mg Gabapentin (Gabapentin 300 Mg Capsule) 600 mg PO BEDTIME [facility] Last Admin: 01/13/24 21:00 Dose: 600 mg Hydroxyzine HCl (Hydroxyzine Hcl 25 Mg Tablet) 25 mg PO Q6H PRN PRN Reason: Anxiety Last Admin: 01/13/24 21:12 Dose: 25 mg Loratadine (Loratadine 10 Mg Tablet) 10 mg PO DAILY PRN PRN Reason: Allergy Symptoms Magnesium Hydroxide (Milk Of Magnesia 30 Ml Oral.Susp) 30 ml PO DAILY PRN PRN Reason: Constipation Mirtazapine (Mirtazapine 7.5 Mg Tablet) 7.5 mg PO BEDTIME [facility] Last Admin: 01/13/24 21:01 Dose: 7.5 mg Nicotine Polacrilex (Nicotine Polacrilex 2 Mg Gum) 2 mg BUCCAL Q2H PRN PRN Reason: Nicotine Cravings Last Admin: 01/13/24 07:48 Dose: 2 mg Non-Formulary Medication (Eszopiclone [Lunesta]) 3 mg PO BEDTIME [facility] Omeprazole (Omeprazole 20 Mg Capsule.Dr) 20 mg PO BID@0630,1630 [facility] Last Admin: 01/14/24 16:29 Dose: 20 mg Paliperidone Palmitate (Paliperidone Palmitate 234 Mg/1.5 Ml Syringe) 234 mg IM Q30D [facility] Thiamine HCl (Thiamine Hcl 100 Mg Tablet) 100 mg PO BID [facility] Last Admin: 01/14/24 09:25 Dose: 100 mg Trazodone HCl (Trazodone Hcl 50 Mg Tablet) 50 mg PO BEDTIME MRX1 PRN PRN Reason: Insomnia Last Admin: 01/13/24 21:12 Dose: 50 mg Allergies Allergies Allergy/AdvReac Type Severity Reaction Status Date / Time bee pollen Allergy Severe Anaphylaxis Verified 01/25/22 15:16 levofloxacin [From Levaquin] Allergy Severe Itching Verified 01/25/22 15:16 enoxaparin [From Lovenox] Allergy Intermediate Rash Verified 01/25/22 15:16 Seasonal Allergies Allergy Mild Runny Nose Verified 01/09/24 14:19 venlafaxine [From Effexor] Allergy Mild Constipatio Verified 01/09/24 14:19 n Penicillins Allergy Unknown Unknown Verified 01/25/22 15:16 Assessment & Plan Assessment & Plan (1) Bipolar 1 disorder, depressed, severe: Status: Acute Code(s): F31.4 - Bipolar disorder, current episode depressed, severe, without psychotic features Plan The patient is an adult female with a past history of bipolar disorder and catatonia who was transferred a few months ago to this facility for ECT. The patient had a successful course of ECT with resolution of her catatonia and was discharged to the community. While she was in the community, having ECT as an outpatient the patient decompensated. She was reassessed by crisis and transfer here for continuation of care. Plan 1. Gather collateral information. 2. The patient is able to contract for safety so we are changing to 50 minute checks. 3. We will continue with her Invega Sustenna and other neuroleptics as a mood stabilizer. 4. We will need to have a new medical assessment for continuation of treatment with ECT. The patient is willing to continue having ECT treatment. She is scheduled for next Sunday. 5. Start Remeron 7.5 mg p.o. q.h.s. to target depression 01/12/2024 Vraylar ECT scheduled 01/13/2024 ECT scheduled for 4 days monitor response to Vraylar 1.5 mg 01/13: depressed. awaiting ECT Weds. continue current mgmt in the meantime. Reason for continued inpatient stay Substantial Risk for: harm to self and inability to function Time Spent With Patient Time: Total time managing care of this patient today ____ minutes.
[2024-01-14 20:00] VITALS: BP 122/59; PULSE 78; RESP 18; TEMP 36.7; O2SAT 97
[2024-01-14] MEDS: Gabapentin 300 MG CAPSULE 600 MG PO (20:19)
[2024-01-14] MEDS: traZODone HCL 50 MG TABLET PO (20:20)
[2024-01-14] MEDS: Mirtazapine 7.5 MG TABLET PO (20:22)
[2024-01-14] MEDS: hydrOXYzine HCL 25 MG TABLET PO (20:22)
[2024-01-15] MEDS: Omeprazole 20 MG CAPSULE.DR PO ×2 (05:43→16:36)
[2024-01-15 07:55] VITALS: BP 133/77; PULSE 77; RESP 18; TEMP 36.3; O2SAT 97
[2024-01-15] MEDS: Thiamine HCL 100 MG TABLET PO ×2 (08:24→20:26)
[2024-01-15] MEDS: Benztropine Mesylate 0.5 MG TABLET 0.25 MG PO ×2 (08:24→20:25)
[2024-01-15] MEDS: Docusate Sodium 100 MG CAPSULE PO ×2 (08:24→20:26)
[2024-01-15] MEDS: Cariprazine HCl 1.5 MG CAPSULE PO (08:24)
--- NOTE | 2024-01-15 14:18 | HO.PM.IMCN ---
History of Present Illness Data of Consult Service Date: 01/15/24 Requesting physician: Phillip Rangel Primary Care Provider: Theresa Nelson MD [facility] Reason for consult: ect risk stratification 68-year-old female with a PMH significant for LLE DVT in 2021, GERD, restless leg syndrome, hx of catatonia, and bipolar disorder with psychotic features?who is [facility] with consult placed to hospitalist service for ect risk stratification. THe patient has undergone ECT previously in september 2021 and complained of chest pain post-procedure with elevated, but flat troponins of 88-->93. Underwent diagnostic catheterization wtihout evidence of significant disease Has subsequently undergone ECT without similar symptoms/lab findings. Prior to last round of ECT was evaluated by cardiology on 10/2023 recommending procedure continue as planned. She has no complaints at this time. No cp, sob, palptiations, [place], hx of seizures. Review of Systems Review of Systems: General: No fevers, malaise, unintentional weight loss HEENT: No blurred vision, diplopia. No sore throat, nasal congestion, rhinorrhea, sinus pain, ear pain Cardiovascular: No chest pain, palpitations, or leg edema Respiratory: No shortness of breath, wheezing, cough GI: No abdominal pain, nausea, vomiting, diarrhea, constipation, melena, hematochezia : No dysuria, hematuria, increased urinary frequency, decreased urinary output MSK: No myalgia, back pain Neuro: No headaches, weakness, paresthesias Skin: No rashes or lesions [facility] Medical History History of skin cancer Hx of bladder problems VITO (generalized anxiety disorder) Murmur, cardiac Hx of thyroid nodule Osteopenia Hx of skin cancer, basal cell Seasonal allergies Insomnia Constipation GERD (gastroesophageal reflux disease) Anxiety History of electroconvulsive therapy Bipolar 1 disorder Family History Mother Basal cell carcinoma (BCC) in situ of skin Osteoporosis Hyperlipidemia Father CAD (coronary artery disease) Alcoholism Sister Osteoporosis Depression Brother Cancer of tongue Cancer of skin Surgical History Hx of colonoscopy H/O elbow surgery History of back surgery Social History Household Members: None Housing: Apartment Are you a primary career coordinator to a significant other at home: No Do you presently have visiting nurse or other home services: No Unable to assess alcohol history related to: Unable to respond Comment: 1:1 suoervision Patient Tobacco Use Status: Never used Tobacco Tobacco use type: Cigarette Years Smoked: 30+, now vapes e-Cigarette/Vaping Use: Currently Using Second Hand Smoke Exposure: No Substance Use Type: Crack/Cocaine service: No Current occupational status: unemployed and retired 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 Sexual orientation: Straight/Heterosexual Meds Allergies Allergy/AdvReac Type Severity Reaction Status Date / Time bee pollen Allergy Severe Anaphylaxis Verified 01/25/22 15:16 levofloxacin [From Levaquin] Allergy Severe Itching Verified 01/25/22 15:16 enoxaparin [From Lovenox] Allergy Intermediate Rash Verified 01/25/22 15:16 Seasonal Allergies Allergy Mild Runny Nose Verified 01/09/24 14:19 venlafaxine [From Effexor] Allergy Mild Constipatio Verified 01/09/24 14:19 n Penicillins Allergy Unknown Unknown Verified 01/25/22 15:16 Active Medications: Current Medications Acetaminophen (Acetaminophen 325 Mg Tablet) 650 mg PO Q6H PRN PRN Reason: Headache/Pain Mild Scale (1-3) Al Hydroxide/Mg Hydroxide (Magnesium Hydrox/Alum Hydrox 30 Ml Oral.Susp) 30 ml PO Q6H PRN PRN Reason: Heartburn/Nausea Benztropine Mesylate (Benztropine Mesylate 0.5 Mg Tablet) 0.25 mg PO BID [facility] Last Admin: 01/15/24 08:24 Dose: 0.25 mg Cariprazine (Cariprazine Hcl 1.5 Mg Capsule) 1.5 mg PO DAILY [facility] Last Admin: 01/15/24 08:24 Dose: 1.5 mg Cyclobenzaprine HCl (Cyclobenzaprine Hcl 10 Mg Tablet) 10 mg PO TID PRN PRN Reason: muscle spasm Docusate Sodium (Docusate Sodium 100 Mg Capsule) 100 mg PO BID [facility] Last Admin: 01/15/24 08:24 Dose: 100 mg Gabapentin (Gabapentin 300 Mg Capsule) 600 mg PO BEDTIME [facility] Last Admin: 01/14/24 20:19 Dose: 600 mg Hydroxyzine HCl (Hydroxyzine Hcl 25 Mg Tablet) 25 mg PO Q6H PRN PRN Reason: Anxiety Last Admin: 01/14/24 20:22 Dose: 25 mg Loratadine (Loratadine 10 Mg Tablet) 10 mg PO DAILY PRN PRN Reason: Allergy Symptoms Magnesium Hydroxide (Milk Of Magnesia 30 Ml Oral.Susp) 30 ml PO DAILY PRN PRN Reason: Constipation Mirtazapine (Mirtazapine 7.5 Mg Tablet) 7.5 mg PO BEDTIME [facility] Last Admin: 01/14/24 20:22 Dose: 7.5 mg Nicotine Polacrilex (Nicotine Polacrilex 2 Mg Gum) 2 mg BUCCAL Q2H PRN PRN Reason: Nicotine Cravings Last Admin: 01/13/24 07:48 Dose: 2 mg Non-Formulary Medication (Eszopiclone [Lunesta]) 3 mg PO BEDTIME [facility] Omeprazole (Omeprazole 20 Mg Capsule.Dr) 20 mg PO BID@0630,1630 [facility] Last Admin: 01/15/24 05:43 Dose: 20 mg Paliperidone Palmitate (Paliperidone Palmitate 234 Mg/1.5 Ml Syringe) 234 mg IM Q30D [facility] Thiamine HCl (Thiamine Hcl 100 Mg Tablet) 100 mg PO BID [facility] Last Admin: 01/15/24 08:24 Dose: 100 mg Trazodone HCl (Trazodone Hcl 50 Mg Tablet) 50 mg PO BEDTIME MRX1 PRN PRN Reason: Insomnia Last Admin: 01/14/24 20:20 Dose: 50 mg Physical Exam Vital Signs and Narrative: Vital Signs: Last Vital Signs Temp 97.4 F 01/15/24 07:55 Pulse 77 01/15/24 07:55 Resp 18 01/15/24 07:55 BP 133/77 01/15/24 07:55 Pulse Ox 97 01/15/24 07:55 O2 Del Method Room Air 01/15/24 07:55 BMI result Body Mass Index 24.0 Constitutional - Awake and Alert, No apparent distress Eyes - PERRLA, EOMI Cardiovascular - S1S2, RRR, No edema Respiratory - Normal lung expansion, Normal respiratory effort, No respiratory distress, CTA bilaterally Gastrointestinal - NT / ND; +BS; No rebound or guarding Extremities - no calf tenderness bilaterally, no swelling Skin - Warm/Dry Neurological - A&Ox3, CN II-XII intact Results Labs 01/09/24 15:36 01/09/24 15:36 Assessment and Plan (1) Routine medical exam: Status: Acute Plan 68-year-old female with a PMH significant for LLE DVT in 2021, GERD, restless leg syndrome, hx of catatonia, and bipolar disorder with psychotic features?who is [facility] with consult placed to hospitalist service for ect risk stratification. #Mood disorder/catatonia -plan per psychiatry -EKG reviewed. No significant changes compared to priors. Reviewed cardiology consult from 11/03: Cardiac studies reviewed. Prior echocardiogram with LVEF 55-60% with no wall motion abnormalities and otherwise unremarkable. Myocardial perfusion imaging study shows a small area of mild intensity apical ischemia. Cardiac catheterization 2021 shows normal coronary arteries. Overall, no cardiac contraindications to proceed with ECT therapy. No clear explanation as to why she had a small troponin leak in the past after ECT. Possible coronary vasospasm from ECT? Cannot predict recurrence either. If clinically indicated, may pursue ECT therapy considering the above. -at this time, no medical contraindication exists that should preclude patient from undergoing ect. Thank you for allowing me to participate in this consult. Signing off at this time. Please do not hesitate to call for further questions or for any acute medical issues.
--- NOTE | 2024-01-15 16:32 | HO.PSYCHPN ---
Subjective Subjective Date of Service: 01/15/24 Reason For Visit: Bipolar Disorder Subjective Notes: Conditional Voluntary Healthcare Proxy: Yes Interim History: Patient seen psychiatric follow-up the patient's mood depressed flat hopeful regarding ECT Medication Compliance: Yes Mental Status Exam Mental Status Exam Patient Appearance: Appropriate Patient Orientation: Person and Situation Level of Consciousness: Awake and Appropriate Patient Behavior: Cooperative and Passive Mood Description: Calm Affect Description: Constricted Patient Cognition Impaired: Yes Ability to Follow Directions: Good Speech Pattern: Clear Hallucinations: None Delusions: Not Present Thought Process: Distracted and Slowed Thinking Thought Content: positive for [place] and positive for Poverty of Content Judgement: Fair Diagnostics Vital Signs (24Hr): Vital Signs - 24 hr 01/14/24 20:00 01/15/24 07:55 Temperature 98.0 F 97.4 F Pulse Rate 78 77 Respiratory Rate 18 18 Blood Pressure 122/59 L 133/77 Pulse Oximetry 97 97 Oxygen Delivery Method Room Air Room Air BMI result Body Mass Index 24.0 Labs 01/09/24 15:36 01/09/24 15:36 Medications Medications Current Medications Acetaminophen (Acetaminophen 325 Mg Tablet) 650 mg PO Q6H PRN PRN Reason: Headache/Pain Mild Scale (1-3) Al Hydroxide/Mg Hydroxide (Magnesium Hydrox/Alum Hydrox 30 Ml Oral.Susp) 30 ml PO Q6H PRN PRN Reason: Heartburn/Nausea Benztropine Mesylate (Benztropine Mesylate 0.5 Mg Tablet) 0.25 mg PO BID [facility] Last Admin: 01/15/24 08:24 Dose: 0.25 mg Cariprazine (Cariprazine Hcl 1.5 Mg Capsule) 1.5 mg PO DAILY [facility] Last Admin: 01/15/24 08:24 Dose: 1.5 mg Cyclobenzaprine HCl (Cyclobenzaprine Hcl 10 Mg Tablet) 10 mg PO TID PRN PRN Reason: muscle spasm Docusate Sodium (Docusate Sodium 100 Mg Capsule) 100 mg PO BID [facility] Last Admin: 01/15/24 08:24 Dose: 100 mg Gabapentin (Gabapentin 300 Mg Capsule) 600 mg PO BEDTIME [facility] Last Admin: 01/14/24 20:19 Dose: 600 mg Hydroxyzine HCl (Hydroxyzine Hcl 25 Mg Tablet) 25 mg PO Q6H PRN PRN Reason: Anxiety Last Admin: 01/14/24 20:22 Dose: 25 mg Loratadine (Loratadine 10 Mg Tablet) 10 mg PO DAILY PRN PRN Reason: Allergy Symptoms Magnesium Hydroxide (Milk Of Magnesia 30 Ml Oral.Susp) 30 ml PO DAILY PRN PRN Reason: Constipation Mirtazapine (Mirtazapine 7.5 Mg Tablet) 7.5 mg PO BEDTIME [facility] Last Admin: 01/14/24 20:22 Dose: 7.5 mg Nicotine Polacrilex (Nicotine Polacrilex 2 Mg Gum) 2 mg BUCCAL Q2H PRN PRN Reason: Nicotine Cravings Last Admin: 01/13/24 07:48 Dose: 2 mg Non-Formulary Medication (Eszopiclone [Lunesta]) 3 mg PO BEDTIME [facility] Omeprazole (Omeprazole 20 Mg Capsule.Dr) 20 mg PO BID@0630,1630 [facility] Last Admin: 01/15/24 05:43 Dose: 20 mg Paliperidone Palmitate (Paliperidone Palmitate 234 Mg/1.5 Ml Syringe) 234 mg IM Q30D [facility] Thiamine HCl (Thiamine Hcl 100 Mg Tablet) 100 mg PO BID [facility] Last Admin: 01/15/24 08:24 Dose: 100 mg Trazodone HCl (Trazodone Hcl 50 Mg Tablet) 50 mg PO BEDTIME MRX1 PRN PRN Reason: Insomnia Last Admin: 01/14/24 20:20 Dose: 50 mg Allergies Allergies Allergy/AdvReac Type Severity Reaction Status Date / Time bee pollen Allergy Severe Anaphylaxis Verified 01/25/22 15:16 levofloxacin [From Levaquin] Allergy Severe Itching Verified 01/25/22 15:16 enoxaparin [From Lovenox] Allergy Intermediate Rash Verified 01/25/22 15:16 Seasonal Allergies Allergy Mild Runny Nose Verified 01/09/24 14:19 venlafaxine [From Effexor] Allergy Mild Constipatio Verified 01/09/24 14:19 n Penicillins Allergy Unknown Unknown Verified 01/25/22 15:16 Assessment & Plan Assessment & Plan (1) Bipolar 1 disorder, depressed, severe: Status: Acute Code(s): F31.4 - Bipolar disorder, current episode depressed, severe, without psychotic features Plan 68-year-old female with a PMH significant for LLE DVT in 2021, GERD, restless leg syndrome, hx of catatonia, and bipolar disorder with psychotic features?who is [facility] with consult placed to hospitalist service for ect risk stratification. #Mood disorder/catatonia -plan per psychiatry -EKG reviewed. No significant changes compared to priors. Reviewed cardiology consult from 11/03: Cardiac studies reviewed. Prior echocardiogram with LVEF 55-60% with no wall motion abnormalities and otherwise unremarkable. Myocardial perfusion imaging study shows a small area of mild intensity apical ischemia. Cardiac catheterization 2021 shows normal coronary arteries. Overall, no cardiac contraindications to proceed with ECT therapy. No clear explanation as to why she had a small troponin leak in the past after ECT. Possible coronary vasospasm from ECT? Cannot predict recurrence either. If clinically indicated, may pursue ECT therapy considering the above. -at this time, no medical contraindication exists that should preclude patient from undergoing ect. Thank you for allowing me to participate in this consult. Signing off at this time. Please do not hesitate to call for further questions or for any acute medical issues. 01/15/2024 Patient scheduled for ECT in the morning above note reviewed does not seem to understand the patient has had a series a recent ECT without difficulty patient had last week missed an outpatient ECT canceled and had relapsed. Difficulty following through with outpatient structure Vraylar started 1.5 increased to 3 mg for bipolar depression Reason for continued inpatient stay Substantial Risk for: harm to self, inability to function and rapid decompensation Time Spent With Patient Time: Total time managing care of this patient today ____ minutes.
[2024-01-15 20:00] VITALS: BP 118/59; PULSE 69; RESP 17; TEMP 36.7; O2SAT 97
[2024-01-15] MEDS: traZODone HCL 50 MG TABLET PO (20:25)
[2024-01-15] MEDS: hydrOXYzine HCL 25 MG TABLET PO (20:26)
[2024-01-15] MEDS: Gabapentin 300 MG CAPSULE 600 MG PO (20:26)
[2024-01-15] MEDS: Mirtazapine 7.5 MG TABLET PO (20:26)
--- NOTE | 2024-01-15 21:45 | P.PNPSI_ITS ---
Subjective Subjective Date of Service: 01/15/24 Reason For Visit: Bipolar Disorder Interim History: no issues. awaiting ECT. states she is not pacing anymore, which is an improvement. sleeping better, too. remains depressed, however. Mental Status Exam Mental Status Exam Patient Appearance: Appropriate Patient Orientation: Person and Situation Level of Consciousness: Awake and Appropriate Patient Behavior: Cooperative and Passive Mood Description: Calm Affect Description: Constricted Patient Cognition Impaired: Yes Ability to Follow Directions: Good Speech Pattern: Clear Hallucinations: None Delusions: Not Present Thought Process: Distracted and Slowed Thinking Thought Content: positive for [place] and positive for Poverty of Content Judgement: Fair Diagnostics Vital Signs (24Hr): Vital Signs - 24 hr 01/15/24 07:55 Temperature 97.4 F Pulse Rate 77 Respiratory Rate 18 Blood Pressure 133/77 Pulse Oximetry 97 Oxygen Delivery Method Room Air BMI result Body Mass Index 24.0 Labs 01/09/24 15:36 01/09/24 15:36 Medications Medications Current Medications Acetaminophen (Acetaminophen 325 Mg Tablet) 650 mg PO Q6H PRN PRN Reason: Headache/Pain Mild Scale (1-3) Al Hydroxide/Mg Hydroxide (Magnesium Hydrox/Alum Hydrox 30 Ml Oral.Susp) 30 ml PO Q6H PRN PRN Reason: Heartburn/Nausea Benztropine Mesylate (Benztropine Mesylate 0.5 Mg Tablet) 0.25 mg PO BID [facility] Last Admin: 01/15/24 20:25 Dose: 0.25 mg Cariprazine (Cariprazine Hcl 3 Mg Capsule) 3 mg PO DAILY [facility] Cyclobenzaprine HCl (Cyclobenzaprine Hcl 10 Mg Tablet) 10 mg PO TID PRN PRN Reason: muscle spasm Docusate Sodium (Docusate Sodium 100 Mg Capsule) 100 mg PO BID [facility] Last Admin: 01/15/24 20:26 Dose: 100 mg Gabapentin (Gabapentin 300 Mg Capsule) 600 mg PO BEDTIME [facility] Last Admin: 01/15/24 20:26 Dose: 600 mg Hydroxyzine HCl (Hydroxyzine Hcl 25 Mg Tablet) 25 mg PO Q6H PRN PRN Reason: Anxiety Last Admin: 01/15/24 20:26 Dose: 25 mg Loratadine (Loratadine 10 Mg Tablet) 10 mg PO DAILY PRN PRN Reason: Allergy Symptoms Magnesium Hydroxide (Milk Of Magnesia 30 Ml Oral.Susp) 30 ml PO DAILY PRN PRN Reason: Constipation Mirtazapine (Mirtazapine 7.5 Mg Tablet) 7.5 mg PO BEDTIME [facility] Last Admin: 01/15/24 20:26 Dose: 7.5 mg Nicotine Polacrilex (Nicotine Polacrilex 2 Mg Gum) 2 mg [facility] Q2H PRN PRN Reason: Nicotine Cravings Last Admin: 01/13/24 07:48 Dose: 2 mg Non-Formulary Medication (Eszopiclone [Lunesta]) 3 mg PO BEDTIME [facility] Omeprazole (Omeprazole 20 Mg Capsule.Dr) 20 mg PO BID@0630,1630 [facility] Last Admin: 01/15/24 16:36 Dose: 20 mg Paliperidone Palmitate (Paliperidone Palmitate 234 Mg/1.5 Ml Syringe) 234 mg IM Q30D [facility] Thiamine HCl (Thiamine Hcl 100 Mg Tablet) 100 mg PO BID [facility] Last Admin: 01/15/24 20:26 Dose: 100 mg Trazodone HCl (Trazodone Hcl 50 Mg Tablet) 50 mg PO BEDTIME MRX1 PRN PRN Reason: Insomnia Last Admin: 01/15/24 20:25 Dose: 50 mg Allergies Allergies Allergy/AdvReac Type Severity Reaction Status Date / Time bee pollen Allergy Severe Anaphylaxis Verified 01/25/22 15:16 levofloxacin [From Levaquin] Allergy Severe Itching Verified 01/25/22 15:16 enoxaparin [From Lovenox] Allergy Intermediate Rash Verified 01/25/22 15:16 Seasonal Allergies Allergy Mild Runny Nose Verified 01/09/24 14:19 venlafaxine [From Effexor] Allergy Mild Constipatio Verified 01/09/24 14:19 n Penicillins Allergy Unknown Unknown Verified 01/25/22 15:16 Assessment & Plan Assessment & Plan (1) Bipolar 1 disorder, depressed, severe: Status: Acute Code(s): F31.4 - Bipolar disorder, current episode depressed, severe, without psychotic features Plan The patient is an adult female with a past history of bipolar disorder and catatonia who was transferred a few months ago to this facility for ECT. The patient had a successful course of ECT with resolution of her catatonia and was discharged to the community. While she was in the community, having ECT as an outpatient the patient decompensated. She was reassessed by crisis and transfer here for continuation of care. Plan 1. Gather collateral information. 2. The patient is able to contract for safety so we are changing to 50 minute checks. 3. We will continue with her Invega Sustenna and other neuroleptics as a mood stabilizer. 4. We will need to have a new medical assessment for continuation of treatment with ECT. The patient is willing to continue having ECT treatment. She is scheduled for next Sunday. 5. Start Remeron 7.5 mg p.o. q.h.s. to target depression 01/12/2024 Vraylar ECT scheduled 01/13/2024 ECT scheduled for 4 days monitor response to Vraylar 1.5 mg 01/13: depressed. awaiting ECT Weds. continue current mgmt in the meantime. 01/14: cleared for ECT. planning to start tomorrow. sleeping better, no longer pacing. remains depressed. Reason for continued inpatient stay Substantial Risk for: inability to function and rapid decompensation Time Spent With Patient Time: Total time managing care of this patient today __25__ minutes.
[2024-01-16] VITALS (8 sets, daily range): BP systolic 113–149; BP diastolic 63–91; PULSE 66–94; RESP 16–21; TEMP 36.2–36.7; O2SAT 96–98
--- NOTE | 2024-01-16 06:53 | P.CONAN_ITS ---
[facility] Active Problems Active Problems: All Active Problems Routine medical exam (Acute) Depression (Acute) Bipolar 1 disorder, depressed, severe (Acute) Elevated troponin (Acute) Chest discomfort (Acute) S/P cardiac catheterization (Acute) Bipolar 1 disorder (Acute) Varus deformity of knee (Acute) Osteoarthritis of left knee (Acute) Anxiety (Acute) GERD (gastroesophageal reflux disease) (Acute) Insomnia (Acute) Osteopenia (Acute) Murmur, cardiac (Acute) Status post total knee replacement, left (Acute) Acute deep vein thrombosis (DVT) of left tibial vein (Chronic) Past Medical History Medical History History of skin cancer Hx of bladder problems VITO (generalized anxiety disorder) Murmur, cardiac Hx of thyroid nodule Osteopenia Hx of skin cancer, basal cell Seasonal allergies Insomnia Constipation GERD (gastroesophageal reflux disease) Anxiety History of electroconvulsive therapy Bipolar 1 disorder Functional capacity: independent ambulation Family History Family History Mother Basal cell carcinoma (BCC) in situ of skin Osteoporosis Hyperlipidemia Father CAD (coronary artery disease) Alcoholism Sister Osteoporosis Depression Brother Cancer of tongue Cancer of skin Family history of problems with anesthesia: No Surgical History Surgical History Hx of colonoscopy H/O elbow surgery History of back surgery History of Problems with Anesthesia: No Social History Social History Household Members: None Housing: Apartment Are you a primary care transitions nurse to a significant other at home: No Do you presently have visiting nurse or other home services: No Unable to assess alcohol history related to: Unable to respond Comment: 1:1 suoervision Patient Tobacco Use Status: Never used Tobacco Tobacco use type: Cigarette Years Smoked: 30+, now vapes e-Cigarette/Vaping Use: Currently Using Second Hand Smoke Exposure: No Substance Use Type: Crack/Cocaine service: No Current occupational status: unemployed and retired 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 Sexual orientation: Straight/Heterosexual Meds Allergies Allergy/AdvReac Type Severity Reaction Status Date / Time bee pollen Allergy Severe Anaphylaxis Verified 01/25/22 15:16 levofloxacin [From Levaquin] Allergy Severe Itching Verified 01/25/22 15:16 enoxaparin [From Lovenox] Allergy Intermediate Rash Verified 01/25/22 15:16 Seasonal Allergies Allergy Mild Runny Nose Verified 01/09/24 14:19 venlafaxine [From Effexor] Allergy Mild Constipatio Verified 01/09/24 14:19 n Penicillins Allergy Unknown Unknown Verified 01/25/22 15:16 Active Medications: Current Medications Acetaminophen (Acetaminophen 325 Mg Tablet) 650 mg PO Q6H PRN PRN Reason: Headache/Pain Mild Scale (1-3) Al Hydroxide/Mg Hydroxide (Magnesium Hydrox/Alum Hydrox 30 Ml Oral.Susp) 30 ml PO Q6H PRN PRN Reason: Heartburn/Nausea Benztropine Mesylate (Benztropine Mesylate 0.5 Mg Tablet) 0.25 mg PO BID [facility] Last Admin: 01/15/24 20:25 Dose: 0.25 mg Cariprazine (Cariprazine Hcl 3 Mg Capsule) 3 mg PO DAILY [facility] Cyclobenzaprine HCl (Cyclobenzaprine Hcl 10 Mg Tablet) 10 mg PO TID PRN PRN Reason: muscle spasm Docusate Sodium (Docusate Sodium 100 Mg Capsule) 100 mg PO BID [facility] Last Admin: 01/15/24 20:26 Dose: 100 mg Gabapentin (Gabapentin 300 Mg Capsule) 600 mg PO BEDTIME [facility] Last Admin: 01/15/24 20:26 Dose: 600 mg Hydroxyzine HCl (Hydroxyzine Hcl 25 Mg Tablet) 25 mg PO Q6H PRN PRN Reason: Anxiety Last Admin: 01/15/24 20:26 Dose: 25 mg Loratadine (Loratadine 10 Mg Tablet) 10 mg PO DAILY PRN PRN Reason: Allergy Symptoms Magnesium Hydroxide (Milk Of Magnesia 30 Ml Oral.Susp) 30 ml PO DAILY PRN PRN Reason: Constipation Mirtazapine (Mirtazapine 7.5 Mg Tablet) 7.5 mg PO BEDTIME [facility] Last Admin: 01/15/24 20:26 Dose: 7.5 mg Nicotine Polacrilex (Nicotine Polacrilex 2 Mg Gum) 2 mg BUCCAL Q2H PRN PRN Reason: Nicotine Cravings Last Admin: 01/13/24 07:48 Dose: 2 mg Omeprazole (Omeprazole 20 Mg Capsule.Dr) 20 mg PO BID@0630,1630 [facility] Last Admin: 01/16/24 06:11 Dose: Not Given Paliperidone Palmitate (Paliperidone Palmitate 234 Mg/1.5 Ml Syringe) 234 mg IM Q30D [facility] Thiamine HCl (Thiamine Hcl 100 Mg Tablet) 100 mg PO BID [facility] Last Admin: 01/15/24 20:26 Dose: 100 mg Trazodone HCl (Trazodone Hcl 50 Mg Tablet) 50 mg PO BEDTIME MRX1 PRN PRN Reason: Insomnia Last Admin: 01/15/24 20:25 Dose: 50 mg Exam Height,Weight and Vital Signs: Height 5 ft 6 in Weight 67.4 kg Last Vital Signs Temp 97.5 F 01/16/24 06:21 Pulse 66 01/16/24 06:21 Resp 19 01/16/24 06:21 BP 113/67 01/16/24 06:21 Pulse Ox 98 01/16/24 06:21 O2 Del Method Room Air 01/16/24 06:21 Pertinent Lab Results Pertinent Lab Results: Laboratory Tests 01/09/24 01/09/24 01/10/24 15:25 15:36 08:40 WBC 6.0 RBC 3.82 L Hgb 11.9 L Hct 35.3 L MCV 92.4 MCH 31.2 MCHC 33.7 RDW 14.5 Plt Count 247 MPV 8.5 L Immature Gran % (Auto) 0.3 Neut % (Auto) 62.4 Lymph % (Auto) 27.8 [place] % (Auto) 8.5 Eos % (Auto) 0.5 Baso % (Auto) 0.5 Lymph # (Auto) 1.7 [place] # (Auto) 0.5 Eos # (Auto) 0.0 Baso # (Auto) 0.0 Abs Immat Gran (auto) 0.02 Absolute Neuts (auto) 3.7 Absolute Nucleated RBC 0.000 Nucleated RBC % (auto) 0.0 Sodium 139 Potassium 3.7 Chloride 108 Carbon Dioxide 24 Anion Gap 11 L BUN 16 Creatinine 0.76 Estim Creat Clear Calc 68.1 Estimated GFR > 60 Random Glucose 125 H Estimat Average Glucose 97 Hemoglobin A1c % 5.0 Calcium 9.3 Magnesium 2.0 Total Bilirubin 0.2 Direct Bilirubin < 0.2 AST 18 ALT 15 Alkaline Phosphatase 104 Total Protein 7.0 Albumin 4.2 Triglycerides 159 H Cholesterol 231 H LDL Cholesterol, Calc 130 H HDL Cholesterol 70 Vitamin B12 401 Folate 5.7 TSH 0.53 Free T4 0.89 Urine Color Yellow Urine Appearance Clear Urine pH 6.0 Ur Specific [place] >= 1.030 H Urine Protein Negative Urine Glucose (UA) Negative Urine Ketones Negative Urine Blood Negative Urine Nitrite Negative Ur Leukocyte Esterase Trace H Urine RBC 0-2 Urine WBC 0-5 Ur Squamous Epith Cells 0-2 Urine Bacteria None Seen Hyaline Casts 0-2 Urine Opiates Screen Not Detected Ur Buprenorphine Scrn Not Detected Ur Oxycodone Screen Not Detected Urine Methadone Screen Not Detected Urine Fentanyl Screen Not Detected Ur Barbiturates Screen Not Detected Ur Phencyclidine Scrn Not Detected Ur Amphetamines Screen Not Detected U Benzodiazepines Scrn Not Detected Urine Cocaine Screen Not Detected U Marijuana (THC) Screen POSITIVE H Ethyl Alcohol < 10 Airway Mallampati Class: II TM Dist: >3cm Neck ROM: Full Heart: RRR Lungs: CTA Assessment and Plan Assessment Anesthesia Assessment: Anesthesia Plan Discussed Final Anesthetic Review Family History of Problems with Anesthesia: No History of Problems with Anesthesia: No NPO: Yes ASA Class: III Final Preanesthetic Review: Meds/Allgs Chart Reviewed, Consent Obtained/Reviewed and Anes Risks/Benef Reviewed Patient Risk: Low Procedure Risk: Low Anesthetic Plan Anesthetic Plan: GA Disposition: Standard PACU
--- NOTE | 2024-01-16 07:07 | MHC.SHP ---
Pre-Procedural Eval Section A - 24 Hr Update-Section A only Date of Service: 01/16/24 The patient is an INPATIENT: Yes Changes since office visit: Yes Changes in Medication and Yes Patient answered all questions; No Cold of Flu in the past 2 weeks and No New Medical Problems The patient has been examined within 24 hours of the surgical procedure. The History & Physical has been completed within 30 days and I have reviewed it.: Yes Section B - Complete if H&P > 30 days Chief Complaint: Bipolar Disorder Allergies: Allergies Allergy/AdvReac Type Severity Reaction Status Date / Time bee pollen Allergy Severe Anaphylaxis Verified 01/25/22 15:16 levofloxacin [From Levaquin] Allergy Severe Itching Verified 01/25/22 15:16 enoxaparin [From Lovenox] Allergy Intermediate Rash Verified 01/25/22 15:16 Seasonal Allergies Allergy Mild Runny Nose Verified 01/09/24 14:19 venlafaxine [From Effexor] Allergy Mild Constipatio Verified 01/09/24 14:19 n Penicillins Allergy Unknown Unknown Verified 01/25/22 15:16 Plan I have reviewed the history and physical and performed a pertinent physical examination on my patient. No changes have occurred unless specified. Time Spent With Patient Time: Total time managing care of this patient today ____ minutes.
--- NOTE | 2024-01-16 07:07 | HO.ECTPROC ---
ECT Procedure Note Diagnosis/Treatment Date of Service: 01/16/24 Diagnosis: Bipolar disorder Previous ECT Date: 01/02/24 Treatment: Maintenance Interval Clinical Notes: Patient missed her last ECT as an outpatient and became hospitalized psychiatrically. She did respond well to ECT treatment but was not totally stabilized. The patient was treated bifrontally does have some postop agitation was given Versed and Haldol 2.5 mg post. Re-evaluate after treatment question need for a mini series patient also on Vraylar for bipolar depression not psychotic Was also given glycopyrrolate 0.1 mg pretreatment Time: Total time managing care of this patient today ____ minutes. ECT Settings Device: THYMATRON DGx Electrode Placement: Bifrontal Program/Pulse Width: 0.50 Energy Percent: 100 Seizure Duration By EEG (in seconds): 36 Medications Administration General Anesthetic: Etomidate (12) Muscle Relaxant: Succinylcholine (100) Ancillary Medications Analgesics: Torodol - Pre ECT Anti-emetics: Zofran - Pre ECT Miscillaneous Medications: Midazolam (2 mg IVP after ECT) and Haldol (2,5) Airway Management Airway Management: Bag Mask Ventilation Treatment Recommendations No Changes Recommended: No change Notes: did well with haldol post for agitation Pt Tolerated Procedure w/o Issue: Yes
[2024-01-16] MEDS: Haloperidol Lactate 5 MG/ML VIAL 2.5 MG IVPUSH (07:59)
--- NOTE | 2024-01-16 08:42 | HO.POSTANES ---
Post Anesthesia Evaluation Post Anesthesia Evaluation Date of Service: 01/16/24 Vital Signs: Vital Signs Temp Pulse Resp BP Pulse Ox O2 Del Method O2 Flow Rate 01/16/24 07:58 72 16 140/76 H 97 Room Air 01/16/24 07:43 87 18 141/86 H 97 Room Air 01/16/24 07:38 94 21 H 147/91 H 98 Nasal Cannula with ETCO2 2 01/16/24 07:33 94 20 122/85 98 Nasal Cannula with ETCO2 2 01/16/24 07:28 98.1 F 83 16 149/77 H 96 Nasal Cannula with ETCO2 2 01/16/24 06:21 97.5 F 66 19 113/67 98 Room Air Anesthesia: General Mental Status: Awake Pain Control: Satisfactory Nausea/Vomiting: None Hydration: Adequate Anesthesia-Related Issues: No Anes. Related Issues
[2024-01-16] MEDS: Thiamine HCL 100 MG TABLET PO ×2 (09:16→20:31)
[2024-01-16] MEDS: Cariprazine HCl 3 MG CAPSULE PO (09:16)
[2024-01-16] MEDS: Docusate Sodium 100 MG CAPSULE PO ×2 (09:16→20:31)
[2024-01-16] MEDS: Benztropine Mesylate 0.5 MG TABLET 0.25 MG PO ×2 (09:17→20:31)
--- NOTE | 2024-01-16 10:00 | PC.NURSE ---
Pt s/p ECT, back to the unit about 8:30am. Denies pain, denies headache, denies dizziness and nausea. Feeling tired . Consumed breakfast and went to rest in bed. VS: T 97.3 P 67, BP 130/66, O2sat 97% on RA. Will continue to monitor.
[2024-01-16] MEDS: Omeprazole 20 MG CAPSULE.DR PO (16:38)
[2024-01-16] MEDS: Mirtazapine 7.5 MG TABLET PO (20:31)
[2024-01-16] MEDS: Gabapentin 300 MG CAPSULE 600 MG PO (20:31)
[2024-01-16] MEDS: traZODone HCL 50 MG TABLET PO ×2 (20:50→23:31)
[2024-01-16] MEDS: hydrOXYzine HCL 25 MG TABLET PO (20:50)
--- NOTE | 2024-01-16 20:59 | P.PNPSI_ITS ---
Subjective Subjective Date of Service: 01/16/24 Reason For Visit: Bipolar Disorder Subjective Notes: Conditional Voluntary Interim History: pt seen in f/u anxious dysphoric ect completed without difficulty Mental Status Exam Mental Status Exam Patient Appearance: Appropriate Patient Orientation: Person and Situation Level of Consciousness: Awake and Appropriate Patient Behavior: Cooperative and Passive Mood Description: Calm Affect Description: Constricted Patient Cognition Impaired: Yes Ability to Follow Directions: Good Speech Pattern: Clear Hallucinations: None Delusions: Not Present Thought Process: Distracted and Slowed Thinking Thought Content: positive for [place] and positive for Poverty of Content Judgement: Fair Diagnostics Vital Signs (24Hr): Vital Signs - 24 hr 01/16/24 06:21 01/16/24 07:28 01/16/24 07:33 Temperature 97.5 F 98.1 F Pulse Rate 66 83 94 Respiratory Rate 19 16 20 Blood Pressure 113/67 149/77 H 122/85 Pulse Oximetry 98 96 98 Oxygen Delivery Method Room Air Nasal Cannula with ETCO2 Nasal Cannula with ETCO2 Oxygen Flow Rate 2 2 01/16/24 07:38 01/16/24 07:43 01/16/24 07:58 Temperature Pulse Rate 94 87 72 Respiratory Rate 21 H 18 16 Blood Pressure 147/91 H 141/86 H 140/76 H Pulse Oximetry 98 97 97 Oxygen Delivery Method Nasal Cannula with ETCO2 Room Air Room Air Oxygen Flow Rate 2 01/16/24 08:30 Temperature 97.3 F Pulse Rate 67 Respiratory Rate 18 Blood Pressure 130/66 Pulse Oximetry 97 Oxygen Delivery Method Room Air Oxygen Flow Rate BMI result Body Mass Index 24.0 Labs 01/09/24 15:36 01/09/24 15:36 Medications Medications Current Medications Acetaminophen (Acetaminophen 325 Mg Tablet) 650 mg PO Q6H PRN PRN Reason: Headache/Pain Mild Scale (1-3) Al Hydroxide/Mg Hydroxide (Magnesium Hydrox/Alum Hydrox 30 Ml Oral.Susp) 30 ml PO Q6H PRN PRN Reason: Heartburn/Nausea Benztropine Mesylate (Benztropine Mesylate 0.5 Mg Tablet) 0.25 mg PO BID [facility] Last Admin: 01/16/24 20:31 Dose: 0.25 mg Cariprazine (Cariprazine Hcl 3 Mg Capsule) 3 mg PO DAILY [facility] Last Admin: 01/16/24 09:16 Dose: 3 mg Cyclobenzaprine HCl (Cyclobenzaprine Hcl 10 Mg Tablet) 10 mg PO TID PRN PRN Reason: muscle spasm Docusate Sodium (Docusate Sodium 100 Mg Capsule) 100 mg PO BID [facility] Last Admin: 01/16/24 20:31 Dose: 100 mg Gabapentin (Gabapentin 300 Mg Capsule) 600 mg PO BEDTIME [facility] Last Admin: 01/16/24 20:31 Dose: 600 mg Hydroxyzine HCl (Hydroxyzine Hcl 25 Mg Tablet) 25 mg PO Q6H PRN PRN Reason: Anxiety Last Admin: 01/16/24 20:50 Dose: 25 mg Loratadine (Loratadine 10 Mg Tablet) 10 mg PO DAILY PRN PRN Reason: Allergy Symptoms Magnesium Hydroxide (Milk Of Magnesia 30 Ml Oral.Susp) 30 ml PO DAILY PRN PRN Reason: Constipation Mirtazapine (Mirtazapine 7.5 Mg Tablet) 7.5 mg PO BEDTIME [facility] Last Admin: 01/16/24 20:31 Dose: 7.5 mg Nicotine Polacrilex (Nicotine Polacrilex 2 Mg Gum) 2 mg BUCCAL Q2H PRN PRN Reason: Nicotine Cravings Last Admin: 01/13/24 07:48 Dose: 2 mg Omeprazole (Omeprazole 20 Mg Capsule.Dr) 20 mg PO BID@0630,1630 [facility] Last Admin: 01/16/24 16:38 Dose: 20 mg Paliperidone Palmitate (Paliperidone Palmitate 234 Mg/1.5 Ml Syringe) 234 mg IM Q30D [facility] Thiamine HCl (Thiamine Hcl 100 Mg Tablet) 100 mg PO BID [facility] Last Admin: 01/16/24 20:31 Dose: 100 mg Trazodone HCl (Trazodone Hcl 50 Mg Tablet) 50 mg PO BEDTIME MRX1 PRN PRN Reason: Insomnia Last Admin: 01/16/24 20:50 Dose: 50 mg Allergies Allergies Allergy/AdvReac Type Severity Reaction Status Date / Time bee pollen Allergy Severe Anaphylaxis Verified 01/25/22 15:16 levofloxacin [From Levaquin] Allergy Severe Itching Verified 01/25/22 15:16 enoxaparin [From Lovenox] Allergy Intermediate Rash Verified 01/25/22 15:16 Seasonal Allergies Allergy Mild Runny Nose Verified 01/09/24 14:19 venlafaxine [From Effexor] Allergy Mild Constipatio Verified 01/09/24 14:19 n Penicillins Allergy Unknown Unknown Verified 01/25/22 15:16 Assessment & Plan Assessment & Plan (1) Bipolar 1 disorder, depressed, severe: Status: Acute Code(s): F31.4 - Bipolar disorder, current episode depressed, severe, without psychotic features Plan The patient is an adult female with a past history of bipolar disorder and catatonia who was transferred a few months ago to this facility for ECT. The patient had a successful course of ECT with resolution of her catatonia and was discharged to the community. While she was in the community, having ECT as an outpatient the patient decompensated. She was reassessed by crisis and transfer here for continuation of care. Plan 1. Gather collateral information. 2. The patient is able to contract for safety so we are changing to 50 minute checks. 3. We will continue with her Invega Sustenna and other neuroleptics as a mood stabilizer. 4. We will need to have a new medical assessment for continuation of treatment with ECT. The patient is willing to continue having ECT treatment. She is scheduled for next Sunday. 5. Start Remeron 7.5 mg p.o. q.h.s. to target depression 01/12/2024 Vraylar ECT scheduled 01/13/2024 ECT scheduled for 4 days monitor response to Vraylar 1.5 mg 01/13: depressed. awaiting ECT Weds. continue current mgmt in the meantime. 01/14: cleared for ECT. planning to start tomorrow. sleeping better, no longer pacing. remains depressed. 01/16/24 Ect completed reevaluate in am vraylar 3 mg Reason for continued inpatient stay Substantial Risk for: harm to self and rapid decompensation Time Spent With Patient Time: Total time managing care of this patient today ____ minutes.
[2024-01-17] MEDS: Omeprazole 20 MG CAPSULE.DR PO ×2 (06:30→16:18)
[2024-01-17 07:00] VITALS: BMI 24.9
[2024-01-17 08:00] VITALS: BP 140/76; PULSE 70; RESP 18; TEMP 36.4; O2SAT 98
[2024-01-17] MEDS: Thiamine HCL 100 MG TABLET PO ×2 (08:05→20:28)
[2024-01-17] MEDS: Benztropine Mesylate 0.5 MG TABLET 0.25 MG PO ×2 (08:05→20:28)
[2024-01-17] MEDS: Cariprazine HCl 3 MG CAPSULE PO (08:06)
[2024-01-17] MEDS: Docusate Sodium 100 MG CAPSULE PO ×2 (08:06→20:28)
--- NOTE | 2024-01-17 08:06 | HO.POSTANES ---
Post Anesthesia Evaluation Post Anesthesia Evaluation Date of Service: 01/16/24 Anesthesia: General Mental Status: Awake Pain Control: Satisfactory Nausea/Vomiting: None Hydration: Adequate Anesthesia-Related Issues: No Anes. Related Issues
--- NOTE | 2024-01-17 18:20 | HO.PSYCHPN ---
Subjective Subjective Date of Service: 01/17/24 Reason For Visit: Bipolar Disorder Subjective Notes: Conditional Voluntary Interim History: Patient seen psychiatric follow-up some improved ment from the 1st ECT tolerating Vraylar 3 mg no psychosis or lucrecia demoralized from depression and lack of stability. Patient states she has not drunk alcohol in an extended period of time states that normally she enjoyed her life in [place] Mental Status Exam Mental Status Exam Patient Appearance: Appropriate Patient Orientation: Person, Place and Situation Level of Consciousness: Awake and Appropriate Patient Behavior: Cooperative and Passive Mood Description: Depressed and Blunted Affect Description: Constricted Patient Cognition Impaired: No Ability to Follow Directions: Good Speech Pattern: Clear Hallucinations: None Delusions: Not Present Thought Process: Distracted and Slowed Thinking Thought Content: positive for [place] and positive for Poverty of Content Judgement: Fair Judgement and Insight: No hallucination delusional material no thoughts of harm to self or others somewhat blunted feeling not quite herself Diagnostics Vital Signs (24Hr): Vital Signs - 24 hr 01/16/24 20:00 01/17/24 08:00 Temperature 97.1 F 97.5 F Pulse Rate 76 70 Respiratory Rate 18 18 Blood Pressure 129/63 140/76 H Pulse Oximetry 96 98 Oxygen Delivery Method Room Air Room Air BMI result Body Mass Index 24.9 Labs 01/09/24 15:36 01/09/24 15:36 Medications Medications Current Medications Acetaminophen (Acetaminophen 325 Mg Tablet) 650 mg PO Q6H PRN PRN Reason: Headache/Pain Mild Scale (1-3) Al Hydroxide/Mg Hydroxide (Magnesium Hydrox/Alum Hydrox 30 Ml Oral.Susp) 30 ml PO Q6H PRN PRN Reason: Heartburn/Nausea Benztropine Mesylate (Benztropine Mesylate 0.5 Mg Tablet) 0.25 mg PO BID REPLACED BY [facility] Last Admin: 01/17/24 08:05 Dose: 0.25 mg Cariprazine (Cariprazine Hcl 3 Mg Capsule) 3 mg PO DAILY [facility] Last Admin: 01/17/24 08:06 Dose: 3 mg Cyclobenzaprine HCl (Cyclobenzaprine Hcl 10 Mg Tablet) 10 mg PO TID PRN PRN Reason: muscle spasm Docusate Sodium (Docusate Sodium 100 Mg Capsule) 100 mg PO BID [facility]PL[facility] Last Admin: 01/17/24 08:06 Dose: 100 mg Gabapentin (Gabapentin 300 Mg Capsule) 600 mg PO BEDTIME REPLACED BY [facility] Last Admin: 01/16/24 20:31 Dose: 600 mg Hydroxyzine HCl (Hydroxyzine Hcl 25 Mg Tablet) 25 mg PO Q6H PRN PRN Reason: Anxiety Last Admin: 01/16/24 20:50 Dose: 25 mg Loratadine (Loratadine 10 Mg Tablet) 10 mg PO DAILY PRN PRN Reason: Allergy Symptoms Magnesium Hydroxide (Milk Of Magnesia 30 Ml Oral.Susp) 30 ml PO DAILY PRN PRN Reason: Constipation Mirtazapine (Mirtazapine 7.5 Mg Tablet) 7.5 mg PO BEDTIME [facility] Last Admin: 01/16/24 20:31 Dose: 7.5 mg Nicotine Polacrilex (Nicotine Polacrilex 2 Mg Gum) 2 mg BUCCAL Q2H PRN PRN Reason: Nicotine Cravings Last Admin: 01/13/24 07:48 Dose: 2 mg Omeprazole (Omeprazole 20 Mg Capsule.Dr) 20 mg PO BID@0630,1630 [facility]PL[facility] Last Admin: 01/17/24 16:18 Dose: 20 mg Paliperidone Palmitate (Paliperidone Palmitate 234 Mg/1.5 Ml Syringe) 234 mg IM Q30D REPLACED BY [facility] Thiamine HCl (Thiamine Hcl 100 Mg Tablet) 100 mg PO BID REPLACED BY [facility] Last Admin: 01/17/24 08:05 Dose: 100 mg Trazodone HCl (Trazodone Hcl 50 Mg Tablet) 50 mg PO BEDTIME MRX1 PRN PRN Reason: Insomnia Last Admin: 01/16/24 23:31 Dose: 50 mg Allergies Allergies Allergy/AdvReac Type Severity Reaction Status Date / Time bee pollen Allergy Severe Anaphylaxis Verified 01/25/22 15:16 levofloxacin [From Levaquin] Allergy Severe Itching Verified 01/25/22 15:16 enoxaparin [From Lovenox] Allergy Intermediate Rash Verified 01/25/22 15:16 Seasonal Allergies Allergy Mild Runny Nose Verified 01/09/24 14:19 venlafaxine [From Effexor] Allergy Mild Constipatio Verified 01/09/24 14:19 n Penicillins Allergy Unknown Unknown Verified 01/25/22 15:16 Assessment & Plan Assessment & Plan (1) Bipolar 1 disorder, depressed, severe: Status: Acute Code(s): F31.4 - Bipolar disorder, current episode depressed, severe, without psychotic features Plan The patient is an adult female with a past history of bipolar disorder and catatonia who was transferred a few months ago to this facility for ECT. The patient had a successful course of ECT with resolution of her catatonia and was discharged to the community. While she was in the community, having ECT as an outpatient the patient decompensated. She was reassessed by crisis and transfer here for continuation of care. Plan 1. Gather collateral information. 2. The patient is able to contract for safety so we are changing to 50 minute checks. 3. We will continue with her Invega Sustenna and other neuroleptics as a mood stabilizer. 4. We will need to have a new medical assessment for continuation of treatment with ECT. The patient is willing to continue having ECT treatment. She is scheduled for next Sunday. 5. Start Remeron 7.5 mg p.o. q.h.s. to target depression 01/12/2024 Vraylar ECT scheduled 01/13/2024 ECT scheduled for 4 days monitor response to Vraylar 1.5 mg 01/13: depressed. awaiting ECT . continue current mgmt in the meantime. 01/14: cleared for ECT. planning to start tomorrow. sleeping better, no longer pacing. remains depressed. 01/16/24 Ect completed reevaluate in am vraylar 3 mg 01/17/2024 Continue Vraylar continue ECT Reason for continued inpatient stay Substantial Risk for: inability to function and rapid decompensation Time Spent With Patient Time: Total time managing care of this patient today ____ minutes.
[2024-01-17] MEDS: Mirtazapine 7.5 MG TABLET PO (20:28)
[2024-01-17] MEDS: Gabapentin 300 MG CAPSULE 600 MG PO (20:28)
[2024-01-17] MEDS: traZODone HCL 50 MG TABLET PO (20:58)
[2024-01-17 21:13] VITALS: BP 135/73; PULSE 68; RESP 16; TEMP 36.3; O2SAT 97
[2024-01-18] VITALS (9 sets, daily range): BP systolic 109–171; BP diastolic 56–85; PULSE 65–83; RESP 15–18; TEMP 36.1–36.7; O2SAT 93–99
--- NOTE | 2024-01-18 09:04 | PC.NURSE ---
IVF order requested from anesimeon at [id number]
--- NOTE | 2024-01-18 09:50 | MHC.SHP ---
Pre-Procedural Eval Section A - 24 Hr Update-Section A only Date of Service: 01/18/24 The patient is an INPATIENT: Yes Changes since office visit: Yes Changes in Medication and Yes Patient answered all questions; No Cold of Flu in the past 2 weeks and No New Medical Problems The patient has been examined within 24 hours of the surgical procedure. The History & Physical has been completed within 30 days and I have reviewed it.: Yes Section B - Complete if H&P > 30 days Chief Complaint: Bipolar Disorder Allergies: Allergies Allergy/AdvReac Type Severity Reaction Status Date / Time bee pollen Allergy Severe Anaphylaxis Verified 01/25/22 15:16 levofloxacin [From Levaquin] Allergy Severe Itching Verified 01/25/22 15:16 enoxaparin [From Lovenox] Allergy Intermediate Rash Verified 01/25/22 15:16 Seasonal Allergies Allergy Mild Runny Nose Verified 01/09/24 14:19 venlafaxine [From Effexor] Allergy Mild Constipatio Verified 01/09/24 14:19 n Penicillins Allergy Unknown Unknown Verified 01/25/22 15:16 Plan I have reviewed the history and physical and performed a pertinent physical examination on my patient. No changes have occurred unless specified. Time Spent With Patient Time: Total time managing care of this patient today ____ minutes.
--- NOTE | 2024-01-18 09:50 | HO.ECTPROC ---
ECT Procedure Note Diagnosis/Treatment Date of Service: 01/18/24 Diagnosis: Bipolar disorder Previous ECT Date: 01/16/24 Current Treatment Number: 2 Treatment: Maintenance Interval Clinical Notes: pt doing somewhat better less anxious and preoccupied on vraylar 3 mg invega sustena did not hold her this is ect number 2 short continuation series Time: Total time managing care of this patient today _30___ minutes. ECT Settings Device: THYMATRON DGx Electrode Placement: Bifrontal Program/Pulse Width: 0.50 Energy Percent: 100 Seizure Duration By EEG (in seconds): 48 Medications Administration General Anesthetic: Etomidate (12) Muscle Relaxant: Succinylcholine (100) Ancillary Medications Cardiovascular Medications: Glycopyrrolate (0.1) Miscillaneous Medications: Midazolam (2 mg IVP after ECT) Airway Management Airway Management: Bag Mask Ventilation Treatment Recommendations No Changes Recommended: No change Notes: some postr op agaitation can get haldol if needed post op Pt Tolerated Procedure w/o Issue: Yes
--- NOTE | 2024-01-18 10:27 | HO.ANESPROP2 ---
[facility] Active Problems Active Problems: All Active Problems Routine medical exam (Acute) Depression (Acute) Bipolar 1 disorder, depressed, severe (Acute) Elevated troponin (Acute) Chest discomfort (Acute) S/P cardiac catheterization (Acute) Bipolar 1 disorder (Acute) Varus deformity of knee (Acute) Osteoarthritis of left knee (Acute) Anxiety (Acute) GERD (gastroesophageal reflux disease) (Acute) Insomnia (Acute) Osteopenia (Acute) Murmur, cardiac (Acute) Status post total knee replacement, left (Acute) Acute deep vein thrombosis (DVT) of left tibial vein (Chronic) Past Medical History Medical History History of skin cancer Hx of bladder problems VITO (generalized anxiety disorder) Murmur, cardiac Hx of thyroid nodule Osteopenia Hx of skin cancer, basal cell Seasonal allergies Insomnia Constipation GERD (gastroesophageal reflux disease) Anxiety History of electroconvulsive therapy Bipolar 1 disorder Functional capacity: independent ambulation Patient : No Family History Family History Mother Basal cell carcinoma (BCC) in situ of skin Osteoporosis Hyperlipidemia Father CAD (coronary artery disease) Alcoholism Sister Osteoporosis Depression Brother Cancer of tongue Cancer of skin Family history of problems with anesthesia: No Surgical History Surgical History Hx of colonoscopy H/O elbow surgery History of back surgery History of Problems with Anesthesia: No Social History Social History Household Members: None Housing: Apartment Are you a primary rn patient care to a significant other at home: No Do you presently have visiting nurse or other home services: No Unable to assess alcohol history related to: Unable to respond Comment: 1:1 suoervision Patient Tobacco Use Status: Never used Tobacco Tobacco use type: Cigarette Years Smoked: 30+, now vapes e-Cigarette/Vaping Use: Currently Using Second Hand Smoke Exposure: No Substance Use Type: Crack/Cocaine service: No Current occupational status: unemployed and retired 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 Sexual orientation: Straight/Heterosexual Meds Allergies Allergy/AdvReac Type Severity Reaction Status Date / Time bee pollen Allergy Severe Anaphylaxis Verified 01/25/22 15:16 levofloxacin [From Levaquin] Allergy Severe Itching Verified 01/25/22 15:16 enoxaparin [From Lovenox] Allergy Intermediate Rash Verified 01/25/22 15:16 Seasonal Allergies Allergy Mild Runny Nose Verified 01/09/24 14:19 venlafaxine [From Effexor] Allergy Mild Constipatio Verified 01/09/24 14:19 n Penicillins Allergy Unknown Unknown Verified 01/25/22 15:16 Active Medications: Current Medications Acetaminophen (Acetaminophen 325 Mg Tablet) 650 mg PO Q6H PRN PRN Reason: Headache/Pain Mild Scale (1-3) Al Hydroxide/Mg Hydroxide (Magnesium Hydrox/Alum Hydrox 30 Ml Oral.Susp) 30 ml PO Q6H PRN PRN Reason: Heartburn/Nausea Benztropine Mesylate (Benztropine Mesylate 0.5 Mg Tablet) 0.25 mg PO BID REPLACED BY [facility] Last Admin: 01/17/24 20:28 Dose: 0.25 mg Cariprazine (Cariprazine Hcl 3 Mg Capsule) 3 mg PO DAILY REPLACED BY [facility] Last Admin: 01/17/24 08:06 Dose: 3 mg Cyclobenzaprine HCl (Cyclobenzaprine Hcl 10 Mg Tablet) 10 mg PO TID PRN PRN Reason: muscle spasm Docusate Sodium (Docusate Sodium 100 Mg Capsule) 100 mg PO BID REPLACED BY [facility] Last Admin: 01/17/24 20:28 Dose: 100 mg Gabapentin (Gabapentin 300 Mg Capsule) 600 mg PO BEDTIME REPLACED BY [facility] Last Admin: 01/17/24 20:28 Dose: 600 mg Hydroxyzine HCl (Hydroxyzine Hcl 25 Mg Tablet) 25 mg PO Q6H PRN PRN Reason: Anxiety Last Admin: 01/16/24 20:50 Dose: 25 mg Loratadine (Loratadine 10 Mg Tablet) 10 mg PO DAILY PRN PRN Reason: Allergy Symptoms Magnesium Hydroxide (Milk Of Magnesia 30 Ml Oral.Susp) 30 ml PO DAILY PRN PRN Reason: Constipation Mirtazapine (Mirtazapine 7.5 Mg Tablet) 7.5 mg PO BEDTIME REPLACED BY [facility] Last Admin: 01/17/24 20:28 Dose: 7.5 mg Nicotine Polacrilex (Nicotine Polacrilex 2 Mg Gum) 2 mg BUCCAL Q2H PRN PRN Reason: Nicotine Cravings Last Admin: 01/13/24 07:48 Dose: 2 mg Omeprazole (Omeprazole 20 Mg Capsule.) 20 mg PO BID@0630,1630 REPLACED BY [facility] Last Admin: 01/18/24 06:18 Dose: Not Given Paliperidone Palmitate (Paliperidone Palmitate 234 Mg/1.5 Ml Syringe) 234 mg IM Q30D REPLACED BY [facility] Thiamine HCl (Thiamine Hcl 100 Mg Tablet) 100 mg PO BID REPLACED BY [facility] Last Admin: 01/17/24 20:28 Dose: 100 mg Trazodone HCl (Trazodone Hcl 50 Mg Tablet) 50 mg PO BEDTIME MRX1 PRN PRN Reason: Insomnia Last Admin: 01/17/24 20:58 Dose: 50 mg Exam Height,Weight and Vital Signs: Height 5 ft 6 in Weight 69.91 kg Last Vital Signs Temp 98.0 F 01/18/24 10:15 Pulse 83 01/18/24 10:20 Resp 15 01/18/24 10:20 BP 147/83 H 01/18/24 10:20 Pulse Ox 98 01/18/24 10:20 O2 Del Method Nasal Cannula with Capnography 01/18/24 10:20 O2 Flow Rate 2 01/18/24 10:20 Pertinent Lab Results Pertinent Lab Results: Laboratory Tests 01/09/24 01/09/24 01/10/24 15:25 15:36 08:40 WBC 6.0 RBC 3.82 L Hgb 11.9 L Hct 35.3 L MCV 92.4 MCH 31.2 MCHC 33.7 RDW 14.5 Plt Count 247 MPV 8.5 L Immature Gran % (Auto) 0.3 Neut % (Auto) 62.4 Lymph % (Auto) 27.8 Mitchell % (Auto) 8.5 Eos % (Auto) 0.5 Baso % (Auto) 0.5 Lymph # (Auto) 1.7 Mitchell # (Auto) 0.5 Eos # (Auto) 0.0 Baso # (Auto) 0.0 Abs Immat Gran (auto) 0.02 Absolute Neuts (auto) 3.7 Absolute Nucleated RBC 0.000 Nucleated RBC % (auto) 0.0 Sodium 139 Potassium 3.7 Chloride 108 Carbon Dioxide 24 Anion Gap 11 L BUN 16 Creatinine 0.76 Estim Creat Clear Calc 68.1 Estimated GFR > 60 Random Glucose 125 H Estimat Average Glucose 97 Hemoglobin A1c % 5.0 Calcium 9.3 Magnesium 2.0 Total Bilirubin 0.2 Direct Bilirubin < 0.2 AST 18 ALT 15 Alkaline Phosphatase 104 Total Protein 7.0 Albumin 4.2 Triglycerides 159 H Cholesterol 231 H LDL Cholesterol, Calc 130 H HDL Cholesterol 70 Vitamin B12 401 Folate 5.7 TSH 0.53 Free T4 0.89 Urine Color Yellow Urine Appearance Clear Urine pH 6.0 Ur Specific [place] >= 1.030 H Urine Protein Negative Urine Glucose (UA) Negative Urine Ketones Negative Urine Blood Negative Urine Nitrite Negative Ur Leukocyte Esterase Trace H Urine RBC 0-2 Urine WBC 0-5 Ur Squamous Epith Cells 0-2 Urine Bacteria None Seen Hyaline Casts 0-2 Urine Opiates Screen Not Detected Ur Buprenorphine Scrn Not Detected Ur Oxycodone Screen Not Detected Urine Methadone Screen Not Detected Urine Fentanyl Screen Not Detected Ur Barbiturates Screen Not Detected Ur Phencyclidine Scrn Not Detected Ur Amphetamines Screen Not Detected U Benzodiazepines Scrn Not Detected Urine Cocaine Screen Not Detected U Marijuana (THC) Screen POSITIVE H Ethyl Alcohol < 10 Airway Mallampati Class: II Neck ROM: Full Denture: Upper Heart: RRR Lungs: CTA Assessment and Plan Assessment Anesthesia Assessment: Anesthesia Plan Discussed Final Anesthetic Review Family History of Problems with Anesthesia: No History of Problems with Anesthesia: No NPO: Yes ASA Class: III Final Preanesthetic Review: Meds/Allgs Chart Reviewed, Consent Obtained/Reviewed and Anes Risks/Benef Reviewed Patient Risk: Low Procedure Risk: Low Anesthetic Plan Anesthetic Plan: GA Disposition: Standard PACU
[2024-01-18] MEDS: Docusate Sodium 100 MG CAPSULE PO ×2 (13:38→21:03)
[2024-01-18] MEDS: Benztropine Mesylate 0.5 MG TABLET 0.25 MG PO ×2 (13:38→21:05)
[2024-01-18] MEDS: Thiamine HCL 100 MG TABLET PO ×2 (13:41→21:04)
[2024-01-18] MEDS: Cariprazine HCl 3 MG CAPSULE PO (13:42)
--- NOTE | 2024-01-18 13:42 | P.PNPSI_ITS ---
Subjective Subjective Date of Service: 01/18/24 Reason For Visit: Bipolar Disorder Subjective Notes: Conditional Voluntary Interim History: improving mood ect completed better insight Medication Compliance: Yes Mental Status Exam Mental Status Exam Patient Appearance: Appropriate Patient Orientation: Person and Situation Level of Consciousness: Awake and Appropriate Patient Behavior: Guarded and Passive Mood Description: Withdrawn Affect Description: Constricted Patient Cognition Impaired: Yes Ability to Follow Directions: Good Speech Pattern: Clear Hallucinations: None Delusions: Not Present Thought Process: Distracted and Slowed Thinking Thought Content: positive for [place] and positive for Poverty of Content Judgement: Poor Diagnostics Vital Signs (24Hr): Vital Signs - 24 hr 01/17/24 21:13 01/18/24 05:43 01/18/24 07:48 Temperature 97.3 F 97.5 F 96.9 F Pulse Rate 68 70 65 Respiratory Rate 16 16 16 Blood Pressure 135/73 131/71 137/67 Pulse Oximetry 97 97 Oxygen Delivery Method Room Air Room Air Oxygen Flow Rate 01/18/24 10:15 01/18/24 10:20 01/18/24 10:25 Temperature 98.0 F Pulse Rate 78 83 77 Respiratory Rate 16 15 18 Blood Pressure 159/85 H 147/83 H 161/80 H Pulse Oximetry 99 98 97 Oxygen Delivery Method Nasal Cannula with ETCO2 Nasal Cannula with ETCO2 Room Air Oxygen Flow Rate 2 2 01/18/24 10:30 01/18/24 10:46 01/18/24 10:55 Temperature 97.7 F 97.5 F Pulse Rate 77 68 65 Respiratory Rate 18 18 16 Blood Pressure 135/83 138/79 171/84 H Pulse Oximetry 97 97 97 Oxygen Delivery Method Room Air Room Air Oxygen Flow Rate BMI result Body Mass Index 24.9 Labs 01/09/24 15:36 01/09/24 15:36 Medications Medications Current Medications Acetaminophen (Acetaminophen 325 Mg Tablet) 650 mg PO Q6H PRN PRN Reason: Headache/Pain Mild Scale (1-3) Al Hydroxide/Mg Hydroxide (Magnesium Hydrox/Alum Hydrox 30 Ml Oral.Susp) 30 ml PO Q6H PRN PRN Reason: Heartburn/Nausea Benztropine Mesylate (Benztropine Mesylate 0.5 Mg Tablet) 0.25 mg PO BID [facility] Last Admin: 01/17/24 20:28 Dose: 0.25 mg Cariprazine (Cariprazine Hcl 3 Mg Capsule) 3 mg PO DAILY [facility] Last Admin: 01/18/24 12:26 Dose: Not Given Cyclobenzaprine HCl (Cyclobenzaprine Hcl 10 Mg Tablet) 10 mg PO TID PRN PRN Reason: muscle spasm Docusate Sodium (Docusate Sodium 100 Mg Capsule) 100 mg PO BID [facility] Last Admin: 01/17/24 20:28 Dose: 100 mg Gabapentin (Gabapentin 300 Mg Capsule) 600 mg PO BEDTIME [facility] Last Admin: 01/17/24 20:28 Dose: 600 mg Hydroxyzine HCl (Hydroxyzine Hcl 25 Mg Tablet) 25 mg PO Q6H PRN PRN Reason: Anxiety Last Admin: 01/16/24 20:50 Dose: 25 mg Loratadine (Loratadine 10 Mg Tablet) 10 mg PO DAILY PRN PRN Reason: Allergy Symptoms Magnesium Hydroxide (Milk Of Magnesia 30 Ml Oral.Susp) 30 ml PO DAILY PRN PRN Reason: Constipation Mirtazapine (Mirtazapine 7.5 Mg Tablet) 7.5 mg PO BEDTIME [facility] Last Admin: 01/17/24 20:28 Dose: 7.5 mg Nicotine Polacrilex (Nicotine Polacrilex 2 Mg Gum) 2 mg BUCCAL Q2H PRN PRN Reason: Nicotine Cravings Last Admin: 01/13/24 07:48 Dose: 2 mg Omeprazole (Omeprazole 20 Mg Capsule.Dr) 20 mg PO BID@0630,1630 [facility] Last Admin: 01/17/24 16:18 Dose: 20 mg Paliperidone Palmitate (Paliperidone Palmitate 234 Mg/1.5 Ml Syringe) 234 mg IM Q30D [facility] Thiamine HCl (Thiamine Hcl 100 Mg Tablet) 100 mg PO BID [facility] Last Admin: 01/18/24 12:26 Dose: Not Given Trazodone HCl (Trazodone Hcl 50 Mg Tablet) 50 mg PO BEDTIME MRX1 PRN PRN Reason: Insomnia Last Admin: 01/17/24 20:58 Dose: 50 mg Allergies Allergies Allergy/AdvReac Type Severity Reaction Status Date / Time bee pollen Allergy Severe Anaphylaxis Verified 01/25/22 15:16 levofloxacin [From Levaquin] Allergy Severe Itching Verified 01/25/22 15:16 enoxaparin [From Lovenox] Allergy Intermediate Rash Verified 01/25/22 15:16 Seasonal Allergies Allergy Mild Runny Nose Verified 01/09/24 14:19 venlafaxine [From Effexor] Allergy Mild Constipatio Verified 01/09/24 14:19 n Penicillins Allergy Unknown Unknown Verified 01/25/22 15:16 Assessment & Plan Assessment & Plan (1) Bipolar 1 disorder, depressed, severe: Status: Acute Code(s): F31.4 - Bipolar disorder, current episode depressed, severe, without psychotic features Plan The patient is an adult female with a past history of bipolar disorder and catatonia who was transferred a few months ago to this facility for ECT. The patient had a successful course of ECT with resolution of her catatonia and was discharged to the community. While she was in the community, having ECT as an outpatient the patient decompensated. She was reassessed by crisis and transfer here for continuation of care. Plan 1. Gather collateral information. 2. The patient is able to contract for safety so we are changing to 50 minute checks. 3. We will continue with her Invega Sustenna and other neuroleptics as a mood stabilizer. 4. We will need to have a new medical assessment for continuation of treatment with ECT. The patient is willing to continue having ECT treatment. She is scheduled for next Sunday. 5. Start Remeron 7.5 mg p.o. q.h.s. to target depression 01/12/2024 Vraylar ECT scheduled 01/13/2024 ECT scheduled for 4 days monitor response to Vraylar 1.5 mg 01/13: depressed. awaiting ECT Weds. continue current mgmt in the meantime. 01/14: cleared for ECT. planning to start tomorrow. sleeping better, no longer pacing. remains depressed. 01/16/24 Ect completed reevaluate in am vraylar 3 mg 01/17/2024 Continue Vraylar continue ECT 01/17 see ect not e cont vraylar Reason for continued inpatient stay Substantial Risk for: inability to function and rapid decompensation Time Spent With Patient Time: Total time managing care of this patient today ____ minutes.
[2024-01-18] MEDS: Omeprazole 20 MG CAPSULE.DR PO (16:38)
[2024-01-18] MEDS: hydrOXYzine HCL 25 MG TABLET PO (17:23)
[2024-01-18] MEDS: Gabapentin 300 MG CAPSULE 600 MG PO (21:02)
[2024-01-18] MEDS: traZODone HCL 50 MG TABLET PO (21:03)
[2024-01-18] MEDS: Mirtazapine 7.5 MG TABLET PO (21:04)
[2024-01-19] MEDS: Omeprazole 20 MG CAPSULE.DR PO ×2 (06:08→15:32)
[2024-01-19 08:00] VITALS: BP 130/72; PULSE 70; RESP 18; TEMP 36.3; O2SAT 98
--- NOTE | 2024-01-19 08:11 | P.PNPSI_ITS ---
Subjective Subjective Date of Service: 01/19/24 Reason For Visit: Bipolar Disorder Interim History: met with patient. Discussed with Nursing. Overall feels that ECT is helpful. Better self-care And mood much brighter. Reports looking forward to discharge planning, being able to socialize more, seeing her dog and travel by bus. Sleep good. No med concerns. Review of Systems Review of Systems Yes all other systems are reviewed and are negative Mental Status Exam Mental Status Exam Patient Appearance: Appropriate Patient Orientation: Person, Place and Situation Level of Consciousness: Awake and Appropriate Patient Behavior: Cooperative and Passive Mood Description: Depressed ( much less) and Blunted Affect Description: Constricted Patient Cognition Impaired: No Ability to Follow Directions: Good Speech Pattern: Clear Diagnostics Vital Signs (24Hr): Vital Signs - 24 hr 01/18/24 10:15 01/18/24 10:20 01/18/24 10:25 Temperature 98.0 F Pulse Rate 78 83 77 Respiratory Rate 16 15 18 Blood Pressure 159/85 H 147/83 H 161/80 H Pulse Oximetry 99 98 97 Oxygen Delivery Method Nasal Cannula with ETCO2 Nasal Cannula with ETCO2 Room Air Oxygen Flow Rate 2 2 01/18/24 10:30 01/18/24 10:46 01/18/24 10:55 Temperature 97.7 F 97.5 F Pulse Rate 77 68 65 Respiratory Rate 18 18 16 Blood Pressure 135/83 138/79 171/84 H Pulse Oximetry 97 97 97 Oxygen Delivery Method Room Air Room Air Oxygen Flow Rate 01/18/24 20:00 Temperature 97.7 F Pulse Rate 69 Respiratory Rate 16 Blood Pressure 109/56 L Pulse Oximetry 93 Oxygen Delivery Method Room Air Oxygen Flow Rate BMI result Body Mass Index 24.9 Labs 01/09/24 15:36 01/09/24 15:36 Medications Medications Current Medications Acetaminophen (Acetaminophen 325 Mg Tablet) 650 mg PO Q6H PRN PRN Reason: Headache/Pain Mild Scale (1-3) Al Hydroxide/Mg Hydroxide (Magnesium Hydrox/Alum Hydrox 30 Ml Oral.Susp) 30 ml PO Q6H PRN PRN Reason: Heartburn/Nausea Benztropine Mesylate (Benztropine Mesylate 0.5 Mg Tablet) 0.25 mg PO BID [facility] Last Admin: 01/18/24 21:05 Dose: 0.25 mg Cariprazine (Cariprazine Hcl 3 Mg Capsule) 3 mg PO DAILY [facility] Last Admin: 01/18/24 13:43 Dose: Not Given Cyclobenzaprine HCl (Cyclobenzaprine Hcl 10 Mg Tablet) 10 mg PO TID PRN PRN Reason: muscle spasm Docusate Sodium (Docusate Sodium 100 Mg Capsule) 100 mg PO BID [facility] Last Admin: 01/18/24 21:03 Dose: 100 mg Gabapentin (Gabapentin 300 Mg Capsule) 600 mg PO BEDTIME [facility] Last Admin: 01/18/24 21:02 Dose: 600 mg Hydroxyzine HCl (Hydroxyzine Hcl 25 Mg Tablet) 25 mg PO Q6H PRN PRN Reason: Anxiety Last Admin: 01/18/24 17:23 Dose: 25 mg Loratadine (Loratadine 10 Mg Tablet) 10 mg PO DAILY PRN PRN Reason: Allergy Symptoms Magnesium Hydroxide (Milk Of Magnesia 30 Ml Oral.Susp) 30 ml PO DAILY PRN PRN Reason: Constipation Mirtazapine (Mirtazapine 7.5 Mg Tablet) 7.5 mg PO BEDTIME [facility] Last Admin: 01/18/24 21:04 Dose: 7.5 mg Nicotine Polacrilex (Nicotine Polacrilex 2 Mg Gum) 2 mg BUCCAL Q2H PRN PRN Reason: Nicotine Cravings Last Admin: 01/13/24 07:48 Dose: 2 mg Omeprazole (Omeprazole 20 Mg Capsule.Dr) 20 mg PO BID@0630,1630 [facility] Last Admin: 01/19/24 06:08 Dose: 20 mg Paliperidone Palmitate (Paliperidone Palmitate 234 Mg/1.5 Ml Syringe) 234 mg IM Q30D [facility] Thiamine HCl (Thiamine Hcl 100 Mg Tablet) 100 mg PO BID [facility] Last Admin: 01/18/24 21:04 Dose: 100 mg Trazodone HCl (Trazodone Hcl 50 Mg Tablet) 50 mg PO BEDTIME MRX1 PRN PRN Reason: Insomnia Last Admin: 01/18/24 21:03 Dose: 50 mg Allergies Allergies Allergy/AdvReac Type Severity Reaction Status Date / Time bee pollen Allergy Severe Anaphylaxis Verified 01/25/22 15:16 levofloxacin [From Levaquin] Allergy Severe Itching Verified 01/25/22 15:16 enoxaparin [From Lovenox] Allergy Intermediate Rash Verified 01/25/22 15:16 Seasonal Allergies Allergy Mild Runny Nose Verified 01/09/24 14:19 venlafaxine [From Effexor] Allergy Mild Constipatio Verified 01/09/24 14:19 n Penicillins Allergy Unknown Unknown Verified 01/25/22 15:16 Assessment & Plan Assessment & Plan (1) Bipolar 1 disorder, depressed, severe: Status: Acute Code(s): F31.4 - Bipolar disorder, current episode depressed, severe, without psychotic features Plan The patient is an adult female with a past history of bipolar disorder and catatonia who was transferred a few months ago to this facility for ECT. The patient had a successful course of ECT with resolution of her catatonia and was discharged to the community. While she was in the community, having ECT as an outpatient the patient decompensated. She was reassessed by crisis and transfer here for continuation of care. Plan 1. Gather collateral information. 2. The patient is able to contract for safety so we are changing to 50 minute checks. 3. We will continue with her Invega Sustenna and other neuroleptics as a mood stabilizer. 4. We will need to have a new medical assessment for continuation of treatment with ECT. The patient is willing to continue having ECT treatment. She is scheduled for next Sunday. 5. Start Remeron 7.5 mg p.o. q.h.s. to target depression 01/12/2024 Vraylar ECT scheduled 01/13/2024 ECT scheduled for 4 days monitor response to Vraylar 1.5 mg 01/13: depressed. awaiting ECT Weds. continue current mgmt in the meantime. 01/14: cleared for ECT. planning to start tomorrow. sleeping better, no longer pacing. remains depressed. 01/16/24 Ect completed reevaluate in am vraylar 3 mg 01/17/2024 Continue Vraylar continue ECT 01/19/2024: No changes to current plan. ECT 01/21/24 Reason for continued inpatient stay Substantial Risk for: rapid decompensation Time Spent With Patient Time: Total time managing care of this patient today ____ minutes.
[2024-01-19] MEDS: Cariprazine HCl 3 MG CAPSULE PO (08:57)
[2024-01-19] MEDS: Docusate Sodium 100 MG CAPSULE PO ×2 (08:57→19:46)
[2024-01-19] MEDS: Benztropine Mesylate 0.5 MG TABLET 0.25 MG PO ×2 (08:57→19:50)
[2024-01-19] MEDS: Thiamine HCL 100 MG TABLET PO ×2 (08:57→21:00)
[2024-01-19] MEDS: Gabapentin 300 MG CAPSULE 600 MG PO (19:45)
[2024-01-19] MEDS: Mirtazapine 7.5 MG TABLET PO (19:47)
[2024-01-19] MEDS: traZODone HCL 50 MG TABLET PO (19:48)
[2024-01-19 20:00] VITALS: BP 112/54; PULSE 66; RESP 18; TEMP 36.3; O2SAT 96
[2024-01-20] MEDS: Omeprazole 20 MG CAPSULE.DR PO ×2 (06:14→16:01)
[2024-01-20] MEDS: Benztropine Mesylate 0.5 MG TABLET 0.25 MG PO ×2 (08:22→20:30)
[2024-01-20] MEDS: Cariprazine HCl 3 MG CAPSULE PO (08:22)
[2024-01-20] MEDS: Thiamine HCL 100 MG TABLET PO ×2 (08:22→20:31)
[2024-01-20] MEDS: Docusate Sodium 100 MG CAPSULE PO ×2 (08:22→20:31)
[2024-01-20 08:24] VITALS: BP 110/62; PULSE 77; RESP 18; TEMP 36.1; O2SAT 98
--- NOTE | 2024-01-20 10:26 | HO.PSYCHPN ---
Subjective Subjective Date of Service: 01/20/24 Reason For Visit: Bipolar Disorder Diagnostics Vital Signs (24Hr): Vital Signs - 24 hr 01/19/24 20:00 01/20/24 08:24 Temperature 97.4 F 96.9 F Pulse Rate 66 77 Respiratory Rate 18 18 Blood Pressure 112/54 L 110/62 Pulse Oximetry 96 98 Oxygen Delivery Method Room Air Room Air BMI result Body Mass Index 24.9 Labs 01/09/24 15:36 01/09/24 15:36 Medications Medications Current Medications Acetaminophen (Acetaminophen 325 Mg Tablet) 650 mg PO Q6H PRN PRN Reason: Headache/Pain Mild Scale (1-3) Al Hydroxide/Mg Hydroxide (Magnesium Hydrox/Alum Hydrox 30 Ml Oral.Susp) 30 ml PO Q6H PRN PRN Reason: Heartburn/Nausea Benztropine Mesylate (Benztropine Mesylate 0.5 Mg Tablet) 0.25 mg PO BID [facility] Last Admin: 01/20/24 08:22 Dose: 0.25 mg Cariprazine (Cariprazine Hcl 3 Mg Capsule) 3 mg PO DAILY [facility] Last Admin: 01/20/24 08:22 Dose: 3 mg Cyclobenzaprine HCl (Cyclobenzaprine Hcl 10 Mg Tablet) 10 mg PO TID PRN PRN Reason: muscle spasm Docusate Sodium (Docusate Sodium 100 Mg Capsule) 100 mg PO BID [facility] Last Admin: 01/20/24 08:22 Dose: 100 mg Gabapentin (Gabapentin 300 Mg Capsule) 600 mg PO BEDTIME [facility] Last Admin: 01/19/24 19:45 Dose: 600 mg Hydroxyzine HCl (Hydroxyzine Hcl 25 Mg Tablet) 25 mg PO Q6H PRN PRN Reason: Anxiety Last Admin: 01/18/24 17:23 Dose: 25 mg Loratadine (Loratadine 10 Mg Tablet) 10 mg PO DAILY PRN PRN Reason: Allergy Symptoms Magnesium Hydroxide (Milk Of Magnesia 30 Ml Oral.Susp) 30 ml PO DAILY PRN PRN Reason: Constipation Mirtazapine (Mirtazapine 7.5 Mg Tablet) 7.5 mg PO BEDTIME [facility] Last Admin: 01/19/24 19:47 Dose: 7.5 mg Nicotine Polacrilex (Nicotine Polacrilex 2 Mg Gum) 2 mg BUCCAL Q2H PRN PRN Reason: Nicotine Cravings Last Admin: 01/13/24 07:48 Dose: 2 mg Omeprazole (Omeprazole 20 Mg Capsule.) 20 mg PO BID@0630,1630 [facility] Last Admin: 01/20/24 06:14 Dose: 20 mg Paliperidone Palmitate (Paliperidone Palmitate 234 Mg/1.5 Ml Syringe) 234 mg IM Q30D [facility] Thiamine HCl (Thiamine Hcl 100 Mg Tablet) 100 mg PO BID [facility] Last Admin: 01/20/24 08:22 Dose: 100 mg Trazodone HCl (Trazodone Hcl 50 Mg Tablet) 50 mg PO BEDTIME MRX1 PRN PRN Reason: Insomnia Last Admin: 01/19/24 19:48 Dose: 50 mg Allergies Allergies Allergy/AdvReac Type Severity Reaction Status Date / Time bee pollen Allergy Severe Anaphylaxis Verified 01/25/22 15:16 levofloxacin [From Levaquin] Allergy Severe Itching Verified 01/25/22 15:16 enoxaparin [From Lovenox] Allergy Intermediate Rash Verified 01/25/22 15:16 Seasonal Allergies Allergy Mild Runny Nose Verified 01/09/24 14:19 venlafaxine [From Effexor] Allergy Mild Constipatio Verified 01/09/24 14:19 n Penicillins Allergy Unknown Unknown Verified 01/25/22 15:16 Assessment & Plan Assessment & Plan (1) Bipolar 1 disorder, depressed, severe: Status: Acute Code(s): F31.4 - Bipolar disorder, current episode depressed, severe, without psychotic features Plan The patient is an adult female with a past history of bipolar disorder and catatonia who was transferred a few months ago to this facility for ECT. The patient had a successful course of ECT with resolution of her catatonia and was discharged to the community. While she was in the community, having ECT as an outpatient the patient decompensated. She was reassessed by crisis and transfer here for continuation of care. Plan 1. Gather collateral information. 2. The patient is able to contract for safety so we are changing to 50 minute checks. 3. We will continue with her Invega Sustenna and other neuroleptics as a mood stabilizer. 4. We will need to have a new medical assessment for continuation of treatment with ECT. The patient is willing to continue having ECT treatment. She is scheduled for next Sunday. 5. Start Remeron 7.5 mg p.o. q.h.s. to target depression 01/12/2024 Vraylar ECT scheduled 01/13/2024 ECT scheduled for 4 days monitor response to Vraylar 1.5 mg 01/13: depressed. awaiting ECT Weds. continue current mgmt in the meantime. 01/14: cleared for ECT. planning to start tomorrow. sleeping better, no longer pacing. remains depressed. 01/16/24 Ect completed reevaluate in am vraylar 3 mg 01/17/2024 Continue Vraylar continue ECT 01/19/2024: No changes to current plan. ECT 01/21/24 Time Spent With Patient Time: Total time managing care of this patient today ____ minutes.
[2024-01-20] MEDS: hydrOXYzine HCL 25 MG TABLET PO (17:45)
--- NOTE | 2024-01-20 17:45 | PC.NURSE ---
Patient with increased anxiety, requested medication. Atarax 25mg PO given at 1746, effect pending.
[2024-01-20 20:00] VITALS: BP 115/76; PULSE 77; RESP 16; TEMP 35.9; O2SAT 97
[2024-01-20] MEDS: Mirtazapine 7.5 MG TABLET PO (20:30)
[2024-01-20] MEDS: Gabapentin 300 MG CAPSULE 600 MG PO (20:32)
[2024-01-20] MEDS: traZODone HCL 50 MG TABLET PO ×2 (20:32→22:25)
[2024-01-21] VITALS (10 sets, daily range): BP systolic 88–155; BP diastolic 51–88; PULSE 66–96; RESP 16–18; TEMP 36.1–36.4; O2SAT 92–97
--- NOTE | 2024-01-21 06:54 | HO.ANESPROP2 ---
[facility] Active Problems Active Problems: All Active Problems Routine medical exam (Acute) Depression (Acute) Bipolar 1 disorder, depressed, severe (Acute) Elevated troponin (Acute) Chest discomfort (Acute) S/P cardiac catheterization (Acute) Bipolar 1 disorder (Acute) Varus deformity of knee (Acute) Osteoarthritis of left knee (Acute) Anxiety (Acute) GERD (gastroesophageal reflux disease) (Acute) Insomnia (Acute) Osteopenia (Acute) Murmur, cardiac (Acute) Status post total knee replacement, left (Acute) Acute deep vein thrombosis (DVT) of left tibial vein (Chronic) Past Medical History Medical History History of skin cancer Hx of bladder problems VITO (generalized anxiety disorder) Murmur, cardiac Hx of thyroid nodule Osteopenia Hx of skin cancer, basal cell Seasonal allergies Insomnia Constipation GERD (gastroesophageal reflux disease) Anxiety History of electroconvulsive therapy Bipolar 1 disorder Functional capacity: independent ambulation Family History Family History Mother Basal cell carcinoma (BCC) in situ of skin Osteoporosis Hyperlipidemia Father CAD (coronary artery disease) Alcoholism Sister Osteoporosis Depression Brother Cancer of tongue Cancer of skin Family history of problems with anesthesia: No Surgical History Surgical History Hx of colonoscopy H/O elbow surgery History of back surgery History of Problems with Anesthesia: No Social History Social History Household Members: None Housing: Apartment Are you a primary career technology teacher to a significant other at home: No Do you presently have visiting nurse or other home services: No Unable to assess alcohol history related to: Unable to respond Comment: 1:1 suoervision Patient Tobacco Use Status: Never used Tobacco Tobacco use type: Cigarette Years Smoked: 30+, now vapes e-Cigarette/Vaping Use: Currently Using Second Hand Smoke Exposure: No Substance Use Type: Crack/Cocaine service: No Current occupational status: unemployed and retired 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 Sexual orientation: Straight/Heterosexual Meds Allergies Allergy/AdvReac Type Severity Reaction Status Date / Time bee pollen Allergy Severe Anaphylaxis Verified 01/25/22 15:16 levofloxacin [From Levaquin] Allergy Severe Itching Verified 01/25/22 15:16 enoxaparin [From Lovenox] Allergy Intermediate Rash Verified 01/25/22 15:16 Seasonal Allergies Allergy Mild Runny Nose Verified 01/09/24 14:19 venlafaxine [From Effexor] Allergy Mild Constipatio Verified 01/09/24 14:19 n Penicillins Allergy Unknown Unknown Verified 01/25/22 15:16 Active Medications: Current Medications Acetaminophen (Acetaminophen 325 Mg Tablet) 650 mg PO Q6H PRN PRN Reason: Headache/Pain Mild Scale (1-3) Al Hydroxide/Mg Hydroxide (Magnesium Hydrox/Alum Hydrox 30 Ml Oral.Susp) 30 ml PO Q6H PRN PRN Reason: Heartburn/Nausea Benztropine Mesylate (Benztropine Mesylate 0.5 Mg Tablet) 0.25 mg PO BID [facility] Last Admin: 01/20/24 20:30 Dose: 0.25 mg Cariprazine (Cariprazine Hcl 3 Mg Capsule) 3 mg PO DAILY [facility] Last Admin: 01/20/24 08:22 Dose: 3 mg Cyclobenzaprine HCl (Cyclobenzaprine Hcl 10 Mg Tablet) 10 mg PO TID PRN PRN Reason: muscle spasm Docusate Sodium (Docusate Sodium 100 Mg Capsule) 100 mg PO BID [facility] Last Admin: 01/20/24 20:31 Dose: 100 mg Gabapentin (Gabapentin 300 Mg Capsule) 600 mg PO BEDTIME [facility] Last Admin: 01/20/24 20:32 Dose: 600 mg Hydroxyzine HCl (Hydroxyzine Hcl 25 Mg Tablet) 25 mg PO Q6H PRN PRN Reason: Anxiety Last Admin: 01/20/24 17:45 Dose: 25 mg Loratadine (Loratadine 10 Mg Tablet) 10 mg PO DAILY PRN PRN Reason: Allergy Symptoms Magnesium Hydroxide (Milk Of Magnesia 30 Ml Oral.Susp) 30 ml PO DAILY PRN PRN Reason: Constipation Mirtazapine (Mirtazapine 7.5 Mg Tablet) 7.5 mg PO BEDTIME [facility] Last Admin: 01/20/24 20:30 Dose: 7.5 mg Nicotine Polacrilex (Nicotine Polacrilex 2 Mg Gum) 2 mg BUCCAL Q2H PRN PRN Reason: Nicotine Cravings Last Admin: 01/13/24 07:48 Dose: 2 mg Omeprazole (Omeprazole 20 Mg Capsule.Dr) 20 mg PO BID@0630,1630 [facility] Last Admin: 01/20/24 16:01 Dose: 20 mg Paliperidone Palmitate (Paliperidone Palmitate 234 Mg/1.5 Ml Syringe) 234 mg IM Q30D [facility] Thiamine HCl (Thiamine Hcl 100 Mg Tablet) 100 mg PO BID [facility] Last Admin: 01/20/24 20:31 Dose: 100 mg Trazodone HCl (Trazodone Hcl 50 Mg Tablet) 50 mg PO BEDTIME MRX1 PRN PRN Reason: Insomnia Last Admin: 01/20/24 22:25 Dose: 50 mg Exam Height,Weight and Vital Signs: Height 5 ft 6 in Weight 69.91 kg Last Vital Signs Temp 97 F 01/21/24 06:39 Pulse 70 01/21/24 06:39 Resp 18 01/21/24 06:39 BP 127/64 01/21/24 06:39 Pulse Ox 96 01/21/24 06:39 O2 Del Method Room Air 01/21/24 06:39 O2 Flow Rate 2 01/18/24 10:20 Pertinent Lab Results Pertinent Lab Results: Laboratory Tests 01/09/24 01/09/24 01/10/24 15:25 15:36 08:40 WBC 6.0 RBC 3.82 L Hgb 11.9 L Hct 35.3 L MCV 92.4 MCH 31.2 MCHC 33.7 RDW 14.5 Plt Count 247 MPV 8.5 L Immature Gran % (Auto) 0.3 Neut % (Auto) 62.4 Lymph % (Auto) 27.8 [place] % (Auto) 8.5 Eos % (Auto) 0.5 Baso % (Auto) 0.5 Lymph # (Auto) 1.7 [place] # (Auto) 0.5 Eos # (Auto) 0.0 Baso # (Auto) 0.0 Abs Immat Gran (auto) 0.02 Absolute Neuts (auto) 3.7 Absolute Nucleated RBC 0.000 Nucleated RBC % (auto) 0.0 Sodium 139 Potassium 3.7 Chloride 108 Carbon Dioxide 24 Anion Gap 11 L BUN 16 Creatinine 0.76 Estim Creat Clear Calc 68.1 Estimated GFR > 60 Random Glucose 125 H Estimat Average Glucose 97 Hemoglobin A1c % 5.0 Calcium 9.3 Magnesium 2.0 Total Bilirubin 0.2 Direct Bilirubin < 0.2 AST 18 ALT 15 Alkaline Phosphatase 104 Total Protein 7.0 Albumin 4.2 Triglycerides 159 H Cholesterol 231 H LDL Cholesterol, Calc 130 H HDL Cholesterol 70 Vitamin B12 401 Folate 5.7 TSH 0.53 Free T4 0.89 Urine Color Yellow Urine Appearance Clear Urine pH 6.0 Ur Specific [place] >= 1.030 H Urine Protein Negative Urine Glucose (UA) Negative Urine Ketones Negative Urine Blood Negative Urine Nitrite Negative Ur Leukocyte Esterase Trace H Urine RBC 0-2 Urine WBC 0-5 Ur Squamous Epith Cells 0-2 Urine Bacteria None Seen Hyaline Casts 0-2 Urine Opiates Screen Not Detected Ur Buprenorphine Scrn Not Detected Ur Oxycodone Screen Not Detected Urine Methadone Screen Not Detected Urine Fentanyl Screen Not Detected Ur Barbiturates Screen Not Detected Ur Phencyclidine Scrn Not Detected Ur Amphetamines Screen Not Detected U Benzodiazepines Scrn Not Detected Urine Cocaine Screen Not Detected U Marijuana (THC) Screen POSITIVE H Ethyl Alcohol < 10 Airway Mallampati Class: II (top edentulous) TM Dist: >3cm Neck ROM: Full Partial: Lower Heart: rrr Lungs: cta Assessment and Plan Assessment Anesthesia Assessment: Anesthesia Plan Discussed and Chart Reviewed Final Anesthetic Review Family History of Problems with Anesthesia: No History of Problems with Anesthesia: No NPO: Yes ASA Class: III Final Preanesthetic Review: No Changes in Pt Med Stat, Meds/Allgs Chart Reviewed and Consent Obtained/Reviewed Patient Risk: Intermediate Procedure Risk: Intermediate Anesthetic Plan Anesthetic Plan: GA Disposition: Standard PACU
--- NOTE | 2024-01-21 07:07 | MHC.SHP ---
Pre-Procedural Eval Section A - 24 Hr Update-Section A only Date of Service: 01/21/24 The patient is an INPATIENT: Yes Changes since office visit: No Cold of Flu in the past 2 weeks, No New Medical Problems, No Changes in Medication and No Patient answered all questions The patient has been examined within 24 hours of the surgical procedure. The History & Physical has been completed within 30 days and I have reviewed it.: Yes Section B - Complete if H&P > 30 days Chief Complaint: Bipolar Disorder Allergies: Allergies Allergy/AdvReac Type Severity Reaction Status Date / Time bee pollen Allergy Severe Anaphylaxis Verified 01/25/22 15:16 levofloxacin [From Levaquin] Allergy Severe Itching Verified 01/25/22 15:16 enoxaparin [From Lovenox] Allergy Intermediate Rash Verified 01/25/22 15:16 Seasonal Allergies Allergy Mild Runny Nose Verified 01/09/24 14:19 venlafaxine [From Effexor] Allergy Mild Constipatio Verified 01/09/24 14:19 n Penicillins Allergy Unknown Unknown Verified 01/25/22 15:16 Plan I have reviewed the history and physical and performed a pertinent physical examination on my patient. No changes have occurred unless specified. Time Spent With Patient Time: Total time managing care of this patient today ____ minutes.
[2024-01-21] MEDS: Lactated Ringers 1,000 ML 50 ML IVCONT (07:08)
--- NOTE | 2024-01-21 08:04 | HO.ECTPROC ---
ECT Procedure Note Diagnosis/Treatment Date of Service: 01/21/24 Diagnosis: Bipolar disorder Previous ECT Date: 01/18/24 Current Treatment Number: 3 Treatment: Series Interval Clinical Notes: The patient reported improvement of her mood, she states that Vraylar helps her better than Seroquel. Her mood is euthymic. No side effects with the previous ECT. ECT done as bifrontal as usual, no complications, woke up well. Time: Total time managing care of this patient today ____ minutes. ECT Settings Device: THYMATRON DGx Electrode Placement: Bifrontal Program/Pulse Width: 0.50 Energy Percent: 100 Seizure Duration By EEG (in seconds): 40 By Motor Observation (in seconds): 16 Medications Administration General Anesthetic: Etomidate (12) Muscle Relaxant: Succinylcholine (100) Ancillary Medications Analgesics: Torodol - Pre ECT Anti-emetics: Zofran - Pre ECT Cardiovascular Medications: Glycopyrrolate (0.1) Miscillaneous Medications: Midazolam (2mg) Airway Management Airway Management: Bag Mask Ventilation Treatment Recommendations No Changes Recommended: No change Pt Tolerated Procedure w/o Issue: Yes
[2024-01-21] MEDS: Omeprazole 20 MG CAPSULE.DR PO ×2 (09:31→15:57)
[2024-01-21] MEDS: Cariprazine HCl 3 MG CAPSULE PO (09:31)
[2024-01-21] MEDS: Docusate Sodium 100 MG CAPSULE PO ×2 (09:31→20:39)
[2024-01-21] MEDS: Thiamine HCL 100 MG TABLET PO ×2 (09:31→20:39)
[2024-01-21] MEDS: Benztropine Mesylate 0.5 MG TABLET 0.25 MG PO ×2 (09:32→20:40)
--- NOTE | 2024-01-21 14:03 | HO.PSYCHPN ---
Subjective Subjective Date of Service: 01/21/24 Reason For Visit: Bipolar Disorder Subjective Notes: Conditional Voluntary Interim History: The nursing staff reported that the patient had been compliant with treatment, no evidence of exacerbation of depression. Today we had ECT and the patient reports no signs or symptoms of depression she feels much better. The psych social worker reported that she spoke with her sister and we will probably discharge her next Sunday. Mental Status Exam Mental Status Exam Patient Appearance: Appropriate Patient Orientation: Person and Situation Level of Consciousness: Awake and Appropriate Patient Behavior: Guarded and Passive Mood Description: Withdrawn Affect Description: Constricted Patient Cognition Impaired: Yes Ability to Follow Directions: Good Speech Pattern: Clear Hallucinations: None Delusions: Not Present Thought Process: Distracted and Slowed Thinking Thought Content: positive for [place] and positive for Poverty of Content Judgement: Fair Diagnostics Vital Signs (24Hr): Vital Signs - 24 hr 01/20/24 20:00 01/21/24 05:56 01/21/24 06:39 Temperature 96.6 F L 97.6 F 97 F Pulse Rate 77 66 70 Respiratory Rate 16 16 18 Blood Pressure 115/76 120/72 127/64 Pulse Oximetry 97 97 96 Oxygen Delivery Method Room Air Room Air Oxygen Flow Rate 01/21/24 08:10 01/21/24 08:15 01/21/24 08:20 Temperature 97.6 F Pulse Rate 84 96 96 Respiratory Rate 16 16 16 Blood Pressure 144/75 H 148/87 H 149/83 H Pulse Oximetry 95 92 94 Oxygen Delivery Method Nasal Cannula with ETCO2 Room Air Room Air Oxygen Flow Rate 2 01/21/24 08:25 01/21/24 08:40 01/21/24 09:00 Temperature 97.6 F Pulse Rate 93 80 77 Respiratory Rate 16 16 16 Blood Pressure 151/88 H 155/88 H 140/65 H Pulse Oximetry 96 96 97 Oxygen Delivery Method Room Air Room Air Room Air Oxygen Flow Rate 01/21/24 09:15 Temperature 97.5 F Pulse Rate 77 Respiratory Rate Blood Pressure 140/65 H Pulse Oximetry 97 Oxygen Delivery Method Oxygen Flow Rate BMI result Body Mass Index 24.9 Labs 01/09/24 15:36 01/09/24 15:36 Medications Medications Current Medications Acetaminophen (Acetaminophen 325 Mg Tablet) 650 mg PO Q6H PRN PRN Reason: Headache/Pain Mild Scale (1-3) Al Hydroxide/Mg Hydroxide (Magnesium Hydrox/Alum Hydrox 30 Ml Oral.Susp) 30 ml PO Q6H PRN PRN Reason: Heartburn/Nausea Benztropine Mesylate (Benztropine Mesylate 0.5 Mg Tablet) 0.25 mg PO BID [facility] Last Admin: 01/21/24 09:32 Dose: 0.25 mg Cariprazine (Cariprazine Hcl 3 Mg Capsule) 3 mg PO DAILY [facility] Last Admin: 01/21/24 09:31 Dose: 3 mg Cyclobenzaprine HCl (Cyclobenzaprine Hcl 10 Mg Tablet) 10 mg PO TID PRN PRN Reason: muscle spasm Docusate Sodium (Docusate Sodium 100 Mg Capsule) 100 mg PO BID [facility] Last Admin: 01/21/24 09:31 Dose: 100 mg Gabapentin (Gabapentin 300 Mg Capsule) 600 mg PO BEDTIME [facility] Last Admin: 01/20/24 20:32 Dose: 600 mg Hydroxyzine HCl (Hydroxyzine Hcl 25 Mg Tablet) 25 mg PO Q6H PRN PRN Reason: Anxiety Last Admin: 01/20/24 17:45 Dose: 25 mg Loratadine (Loratadine 10 Mg Tablet) 10 mg PO DAILY PRN PRN Reason: Allergy Symptoms Magnesium Hydroxide (Milk Of Magnesia 30 Ml Oral.Susp) 30 ml PO DAILY PRN PRN Reason: Constipation Mirtazapine (Mirtazapine 7.5 Mg Tablet) 7.5 mg PO BEDTIME [facility] Last Admin: 01/20/24 20:30 Dose: 7.5 mg Nicotine Polacrilex (Nicotine Polacrilex 2 Mg Gum) 2 mg BUCCAL Q2H PRN PRN Reason: Nicotine Cravings Last Admin: 01/13/24 07:48 Dose: 2 mg Omeprazole (Omeprazole 20 Mg Capsule.Dr) 20 mg PO BID@0630,1630 [facility] Last Admin: 01/21/24 09:31 Dose: 20 mg Paliperidone Palmitate (Paliperidone Palmitate 234 Mg/1.5 Ml Syringe) 234 mg IM Q30D [facility] Thiamine HCl (Thiamine Hcl 100 Mg Tablet) 100 mg PO BID [facility] Last Admin: 01/21/24 09:31 Dose: 100 mg Trazodone HCl (Trazodone Hcl 50 Mg Tablet) 50 mg PO BEDTIME MRX1 PRN PRN Reason: Insomnia Last Admin: 01/20/24 22:25 Dose: 50 mg Allergies Allergies Allergy/AdvReac Type Severity Reaction Status Date / Time bee pollen Allergy Severe Anaphylaxis Verified 01/25/22 15:16 levofloxacin [From Levaquin] Allergy Severe Itching Verified 01/25/22 15:16 enoxaparin [From Lovenox] Allergy Intermediate Rash Verified 01/25/22 15:16 Seasonal Allergies Allergy Mild Runny Nose Verified 01/09/24 14:19 venlafaxine [From Effexor] Allergy Mild Constipatio Verified 01/09/24 14:19 n Penicillins Allergy Unknown Unknown Verified 01/25/22 15:16 Assessment & Plan Assessment & Plan (1) Bipolar 1 disorder, depressed, severe: Status: Acute Code(s): F31.4 - Bipolar disorder, current episode depressed, severe, without psychotic features Plan The patient is an adult female with a past history of bipolar disorder and catatonia who was transferred a few months ago to this facility for ECT. The patient had a successful course of ECT with resolution of her catatonia and was discharged to the community. While she was in the community, having ECT as an outpatient the patient decompensated. She was reassessed by crisis and transfer here for continuation of care. Plan 1. Gather collateral information. 2. The patient is able to contract for safety so we are changing to 50 minute checks. 3. We will continue with her Invega Sustenna and other neuroleptics as a mood stabilizer. 4. We will need to have a new medical assessment for continuation of treatment with ECT. The patient is willing to continue having ECT treatment. She is scheduled for next Sunday. 5. Start Remeron 7.5 mg p.o. q.h.s. to target depression 6. She was started on Vraylar. 7. Continue with ECT. Reason for continued inpatient stay Substantial Risk for: inability to function, rapid decompensation and med/psych decompensation Time Spent With Patient Time: Total time managing care of this patient today __20__ minutes.
[2024-01-21] MEDS: Mirtazapine 7.5 MG TABLET PO (20:39)
[2024-01-21] MEDS: hydrOXYzine HCL 25 MG TABLET PO (20:39)
[2024-01-21] MEDS: traZODone HCL 50 MG TABLET PO (20:40)
[2024-01-21] MEDS: Gabapentin 300 MG CAPSULE 600 MG PO (23:25)
[2024-01-22] MEDS: Omeprazole 20 MG CAPSULE.DR PO ×2 (06:18→16:26)
[2024-01-22 08:00] VITALS: BP 141/76; PULSE 86; RESP 18; TEMP 36.5; O2SAT 96
[2024-01-22] MEDS: Docusate Sodium 100 MG CAPSULE PO ×2 (08:56→20:58)
[2024-01-22] MEDS: Cariprazine HCl 3 MG CAPSULE PO (08:56)
[2024-01-22] MEDS: Thiamine HCL 100 MG TABLET PO ×2 (08:56→20:50)
[2024-01-22] MEDS: Benztropine Mesylate 0.5 MG TABLET 0.25 MG PO ×2 (08:57→20:50)
[2024-01-22 20:00] VITALS: BP 140/84; PULSE 68; RESP 18; TEMP 36.6; O2SAT 97
[2024-01-22] MEDS: Mirtazapine 7.5 MG TABLET PO (20:50)
[2024-01-22] MEDS: Gabapentin 300 MG CAPSULE 600 MG PO (20:50)
[2024-01-22] MEDS: hydrOXYzine HCL 25 MG TABLET PO (20:50)
[2024-01-22] MEDS: traZODone HCL 50 MG TABLET PO (20:50)
[2024-01-23] MEDS: traZODone HCL 50 MG TABLET PO ×3 (00:14→22:31)
[2024-01-23 06:04] VITALS: BP 121/80; PULSE 93; RESP 18; TEMP 35.9; O2SAT 100
[2024-01-23] MEDS: Omeprazole 20 MG CAPSULE.DR PO ×2 (06:17→16:16)
[2024-01-23 08:38] VITALS: BP 122/67; PULSE 80; RESP 16; TEMP 36.3; O2SAT 95
[2024-01-23] MEDS: Benztropine Mesylate 0.5 MG TABLET 0.25 MG PO ×2 (08:39→20:55)
[2024-01-23] MEDS: Thiamine HCL 100 MG TABLET PO ×2 (08:41→20:55)
[2024-01-23] MEDS: Docusate Sodium 100 MG CAPSULE PO ×2 (08:42→20:55)
[2024-01-23] MEDS: Cariprazine HCl 3 MG CAPSULE PO (08:42)
[2024-01-23] MEDS: Acetaminophen 325 MG TABLET 650 MG PO (09:15)
[2024-01-23] MEDS: Paliperidone Palmitate 234 MG/1.5 ML SYRINGE IM (11:15)
--- NOTE | 2024-01-23 14:52 | HO.PSYCHPN ---
Subjective Subjective Date of Service: 01/23/24 Reason For Visit: Bipolar Disorder Subjective Notes: Conditional Voluntary Interim History: The nursing staff reported the patient had been compliant with treatment pleasant no changes in her mental status fully compliant with treatment. On interview the patient denies new symptoms no evidence of extrapyramidal symptoms. Mental Status Exam Mental Status Exam Patient Appearance: Appropriate Patient Orientation: Person and Situation Level of Consciousness: Awake and Appropriate Patient Behavior: Guarded and Passive Mood Description: Withdrawn Affect Description: Constricted Patient Cognition Impaired: Yes Ability to Follow Directions: Good Speech Pattern: Clear Hallucinations: None Delusions: Not Present Thought Process: Distracted and Slowed Thinking Thought Content: positive for [place] and positive for Poverty of Content Judgement: Poor Diagnostics Vital Signs (24Hr): Vital Signs - 24 hr 01/22/24 20:00 01/23/24 06:04 01/23/24 08:38 Temperature 97.9 F 96.7 F L 97.3 F Pulse Rate 68 93 80 Respiratory Rate 18 18 16 Blood Pressure 140/84 H 121/80 122/67 Pulse Oximetry 97 100 95 Oxygen Delivery Method Room Air Room Air BMI result Body Mass Index 24.9 Labs 01/09/24 15:36 01/09/24 15:36 Medications Medications Current Medications Acetaminophen (Acetaminophen 325 Mg Tablet) 650 mg PO Q6H PRN PRN Reason: Headache/Pain Mild Scale (1-3) Last Admin: 01/23/24 09:15 Dose: 650 mg Al Hydroxide/Mg Hydroxide (Magnesium Hydrox/Alum Hydrox 30 Ml Oral.Susp) 30 ml PO Q6H PRN PRN Reason: Heartburn/Nausea Benztropine Mesylate (Benztropine Mesylate 0.5 Mg Tablet) 0.25 mg PO BID [facility] Last Admin: 01/23/24 08:39 Dose: 0.25 mg Cariprazine (Cariprazine Hcl 3 Mg Capsule) 3 mg PO DAILY [facility] Last Admin: 01/23/24 08:42 Dose: 3 mg Cyclobenzaprine HCl (Cyclobenzaprine Hcl 10 Mg Tablet) 10 mg PO TID PRN PRN Reason: muscle spasm Docusate Sodium (Docusate Sodium 100 Mg Capsule) 100 mg PO BID [facility] Last Admin: 01/23/24 08:42 Dose: 100 mg Gabapentin (Gabapentin 300 Mg Capsule) 600 mg PO BEDTIME [facility] Last Admin: 01/22/24 20:50 Dose: 600 mg Hydroxyzine HCl (Hydroxyzine Hcl 25 Mg Tablet) 25 mg PO Q6H PRN PRN Reason: Anxiety Last Admin: 01/22/24 20:50 Dose: 25 mg Loratadine (Loratadine 10 Mg Tablet) 10 mg PO DAILY PRN PRN Reason: Allergy Symptoms Magnesium Hydroxide (Milk Of Magnesia 30 Ml Oral.Susp) 30 ml PO DAILY PRN PRN Reason: Constipation Mirtazapine (Mirtazapine 7.5 Mg Tablet) 7.5 mg PO BEDTIME [facility] Last Admin: 01/22/24 20:50 Dose: 7.5 mg Nicotine Polacrilex (Nicotine Polacrilex 2 Mg Gum) 2 mg BUCCAL Q2H PRN PRN Reason: Nicotine Cravings Last Admin: 01/13/24 07:48 Dose: 2 mg Omeprazole (Omeprazole 20 Mg Capsule.Dr) 20 mg PO BID@0630,1630 [facility] Last Admin: 01/23/24 06:17 Dose: 20 mg Paliperidone Palmitate (Paliperidone Palmitate 234 Mg/1.5 Ml Syringe) 234 mg IM Q30D [facility] Last Admin: 01/23/24 11:15 Dose: 234 mg Thiamine HCl (Thiamine Hcl 100 Mg Tablet) 100 mg PO BID [facility] Last Admin: 01/23/24 08:41 Dose: 100 mg Trazodone HCl (Trazodone Hcl 50 Mg Tablet) 50 mg PO BEDTIME MRX1 PRN PRN Reason: Insomnia Last Admin: 01/23/24 00:14 Dose: 50 mg Allergies Allergies Allergy/AdvReac Type Severity Reaction Status Date / Time bee pollen Allergy Severe Anaphylaxis Verified 01/25/22 15:16 levofloxacin [From Levaquin] Allergy Severe Itching Verified 01/25/22 15:16 enoxaparin [From Lovenox] Allergy Intermediate Rash Verified 01/25/22 15:16 Seasonal Allergies Allergy Mild Runny Nose Verified 01/09/24 14:19 venlafaxine [From Effexor] Allergy Mild Constipatio Verified 01/09/24 14:19 n Penicillins Allergy Unknown Unknown Verified 01/25/22 15:16 Assessment & Plan Assessment & Plan (1) Bipolar 1 disorder, depressed, severe: Status: Acute Code(s): F31.4 - Bipolar disorder, current episode depressed, severe, without psychotic features Plan The patient is an adult female with a past history of bipolar disorder and catatonia who was transferred a few months ago to this facility for ECT. The patient had a successful course of ECT with resolution of her catatonia and was discharged to the community. While she was in the community, having ECT as an outpatient the patient decompensated. She was reassessed by crisis and transfer here for continuation of care. Plan 1. Gather collateral information. 2. The patient is able to contract for safety so we are changing to 50 minute checks. 3. We will continue with her Invega Sustenna and other neuroleptics as a mood stabilizer. 4. We will need to have a new medical assessment for continuation of treatment with ECT. The patient is willing to continue having ECT treatment. 5. Start Remeron 7.5 mg p.o. q.h.s. to target depression 6. She was started on Vraylar. 7. ECT finished Reason for continued inpatient stay Substantial Risk for: inability to function, rapid decompensation and med/psych decompensation Time Spent With Patient Time: Total time managing care of this patient today __20__ minutes.
[2024-01-23 20:00] VITALS: BP 126/58; PULSE 79; RESP 18; TEMP 36.7; O2SAT 95
[2024-01-23] MEDS: Gabapentin 300 MG CAPSULE 600 MG PO (20:55)
[2024-01-23] MEDS: Mirtazapine 7.5 MG TABLET PO (20:55)
[2024-01-24] MEDS: Omeprazole 20 MG CAPSULE.DR PO ×2 (06:02→16:22)
[2024-01-24 07:00] VITALS: BMI 24.4
[2024-01-24 08:00] VITALS: BP 122/80; PULSE 85; RESP 18; TEMP 36.4; O2SAT 98
[2024-01-24] MEDS: Benztropine Mesylate 0.5 MG TABLET 0.25 MG PO ×2 (08:23→20:40)
[2024-01-24] MEDS: Docusate Sodium 100 MG CAPSULE PO ×2 (08:23→20:41)
[2024-01-24] MEDS: Thiamine HCL 100 MG TABLET PO ×2 (08:23→20:41)
[2024-01-24] MEDS: Cariprazine HCl 3 MG CAPSULE PO (08:23)
--- NOTE | 2024-01-24 17:56 | HO.PSYCHPN ---
Subjective Subjective Date of Service: 01/24/24 Reason For Visit: Bipolar Disorder Interim History: met with patient; discussed with team pt says she feels good...great and is glad she came in; feels ECT very helpful and will continue maintenance as outpt; feels ready to dc tomorrow as planned staff reports doing well, good behavioral/impulse control Mental Status Exam Mental Status Exam Patient Appearance: Well Grooomed and Appropriate Patient Orientation: Person, Place and Situation Level of Consciousness: Awake and Appropriate Patient Behavior: Appropriate Mood Description: Calm, Happy and Relaxed Affect Description: Calm and Appropriate Patient Cognition Impaired: Yes Ability to Follow Directions: Good Speech Pattern: Clear Hallucinations: None Delusions: Not Present Thought Process: Goal Oriented Thought Content: positive for [place] and positive for [place] Judgement: Fair Diagnostics Vital Signs (24Hr): Vital Signs - 24 hr 01/23/24 20:00 01/24/24 08:00 Temperature 98.1 F 97.5 F Pulse Rate 79 85 Respiratory Rate 18 18 Blood Pressure 126/58 L 122/80 Pulse Oximetry 95 98 Oxygen Delivery Method Room Air Room Air BMI result Body Mass Index 24.4 Labs 01/09/24 15:36 01/09/24 15:36 Medications Medications Current Medications Acetaminophen (Acetaminophen 325 Mg Tablet) 650 mg PO Q6H PRN PRN Reason: Headache/Pain Mild Scale (1-3) Last Admin: 01/23/24 09:15 Dose: 650 mg Al Hydroxide/Mg Hydroxide (Magnesium Hydrox/Alum Hydrox 30 Ml Oral.Susp) 30 ml PO Q6H PRN PRN Reason: Heartburn/Nausea Benztropine Mesylate (Benztropine Mesylate 0.5 Mg Tablet) 0.25 mg PO BID [facility] Last Admin: 01/24/24 08:23 Dose: 0.25 mg Cariprazine (Cariprazine Hcl 3 Mg Capsule) 3 mg PO DAILY [facility] Last Admin: 01/24/24 08:23 Dose: 3 mg Cyclobenzaprine HCl (Cyclobenzaprine Hcl 10 Mg Tablet) 10 mg PO TID PRN PRN Reason: muscle spasm Docusate Sodium (Docusate Sodium 100 Mg Capsule) 100 mg PO BID [facility] Last Admin: 01/24/24 08:23 Dose: 100 mg Gabapentin (Gabapentin 300 Mg Capsule) 600 mg PO BEDTIME [facility] Last Admin: 01/23/24 20:55 Dose: 600 mg Hydroxyzine HCl (Hydroxyzine Hcl 25 Mg Tablet) 25 mg PO Q6H PRN PRN Reason: Anxiety Last Admin: 01/22/24 20:50 Dose: 25 mg Loratadine (Loratadine 10 Mg Tablet) 10 mg PO DAILY PRN PRN Reason: Allergy Symptoms Magnesium Hydroxide (Milk Of Magnesia 30 Ml Oral.Susp) 30 ml PO DAILY PRN PRN Reason: Constipation Mirtazapine (Mirtazapine 7.5 Mg Tablet) 7.5 mg PO BEDTIME [facility] Last Admin: 01/23/24 20:55 Dose: 7.5 mg Nicotine Polacrilex (Nicotine Polacrilex 2 Mg Gum) 2 mg BUCCAL Q2H PRN PRN Reason: Nicotine Cravings Last Admin: 01/13/24 07:48 Dose: 2 mg Omeprazole (Omeprazole 20 Mg Capsule.Dr) 20 mg PO BID@0630,1630 [facility] Last Admin: 01/24/24 16:22 Dose: 20 mg Paliperidone Palmitate (Paliperidone Palmitate 234 Mg/1.5 Ml Syringe) 234 mg IM Q30D [facility] Last Admin: 01/23/24 11:15 Dose: 234 mg Thiamine HCl (Thiamine Hcl 100 Mg Tablet) 100 mg PO BID [facility] Last Admin: 01/24/24 08:23 Dose: 100 mg Trazodone HCl (Trazodone Hcl 50 Mg Tablet) 50 mg PO BEDTIME MRX1 PRN PRN Reason: Insomnia Last Admin: 01/23/24 22:31 Dose: 50 mg Allergies Allergies Allergy/AdvReac Type Severity Reaction Status Date / Time bee pollen Allergy Severe Anaphylaxis Verified 01/25/22 15:16 levofloxacin [From Levaquin] Allergy Severe Itching Verified 01/25/22 15:16 enoxaparin [From Lovenox] Allergy Intermediate Rash Verified 01/25/22 15:16 Seasonal Allergies Allergy Mild Runny Nose Verified 01/09/24 14:19 venlafaxine [From Effexor] Allergy Mild Constipatio Verified 01/09/24 14:19 n Penicillins Allergy Unknown Unknown Verified 01/25/22 15:16 Assessment & Plan Assessment & Plan (1) Bipolar 1 disorder, depressed, severe: Status: Acute Code(s): F31.4 - Bipolar disorder, current episode depressed, severe, without psychotic features Plan The patient is an adult female with a past history of bipolar disorder and catatonia who was transferred a few months ago to this facility for ECT. The patient had a successful course of ECT with resolution of her catatonia and was discharged to the community. While she was in the community, having ECT as an outpatient the patient decompensated. She was reassessed by crisis and transfer here for continuation of care. Plan 1. Gather collateral information. 2. The patient is able to contract for safety so we are changing to 50 minute checks. 3. We will continue with her Invega Sustenna and other neuroleptics as a mood stabilizer. 4. We will need to have a new medical assessment for continuation of treatment with ECT. The patient is willing to continue having ECT treatment. 5. Start Remeron 7.5 mg p.o. q.h.s. to target depression 6. She was started on Vraylar. 7. ECT finished Patient educated on: diagnosis and ECT Informed Consent: understands Reason for continued inpatient stay Substantial Risk for: stable for discharge Time Spent With Patient Time: Total time managing care of this patient today ____ minutes.
[2024-01-24 20:00] VITALS: BP 126/90; PULSE 88; RESP 18; TEMP 36.7; O2SAT 95
[2024-01-24] MEDS: Gabapentin 300 MG CAPSULE 600 MG PO (20:41)
[2024-01-24] MEDS: Mirtazapine 7.5 MG TABLET PO (20:41)
[2024-01-24] MEDS: traZODone HCL 50 MG TABLET PO ×2 (20:41→21:58)
[2024-01-24] MEDS: hydrOXYzine HCL 25 MG TABLET PO (20:45)
--- NOTE | 2024-01-24 22:21 | HO.PSYCHPN ---
Subjective Subjective Date of Service: 01/18/24 Reason For Visit: Bipolar Disorder Subjective Notes: Conditional Voluntary Interim History: improved mood future oriented better insight seems stable for d/c Mental Status Exam Mental Status Exam Patient Appearance: Appropriate Patient Orientation: Person, Place and Situation Level of Consciousness: Awake and Appropriate Patient Behavior: Guarded and Passive Mood Description: Withdrawn Affect Description: Constricted Patient Cognition Impaired: Yes Ability to Follow Directions: Good Speech Pattern: Clear Hallucinations: None Delusions: Not Present Thought Process: Distracted and Slowed Thinking Thought Content: positive for [place] and positive for Poverty of Content Judgement: Poor Diagnostics Vital Signs (24Hr): Vital Signs - 24 hr 01/24/24 08:00 01/24/24 20:00 Temperature 97.5 F 98.1 F Pulse Rate 85 88 Respiratory Rate 18 18 Blood Pressure 122/80 126/90 H Pulse Oximetry 98 95 Oxygen Delivery Method Room Air Room Air BMI result Body Mass Index 24.4 Labs 01/09/24 15:36 01/09/24 15:36 Medications Medications Current Medications Acetaminophen (Acetaminophen 325 Mg Tablet) 650 mg PO Q6H PRN PRN Reason: Headache/Pain Mild Scale (1-3) Last Admin: 01/23/24 09:15 Dose: 650 mg Al Hydroxide/Mg Hydroxide (Magnesium Hydrox/Alum Hydrox 30 Ml Oral.Susp) 30 ml PO Q6H PRN PRN Reason: Heartburn/Nausea Benztropine Mesylate (Benztropine Mesylate 0.5 Mg Tablet) 0.25 mg PO BID [facility] Last Admin: 01/24/24 20:40 Dose: 0.25 mg Cariprazine (Cariprazine Hcl 3 Mg Capsule) 3 mg PO DAILY [facility] Last Admin: 01/24/24 08:23 Dose: 3 mg Cyclobenzaprine HCl (Cyclobenzaprine Hcl 10 Mg Tablet) 10 mg PO TID PRN PRN Reason: muscle spasm Docusate Sodium (Docusate Sodium 100 Mg Capsule) 100 mg PO BID [facility] Last Admin: 01/24/24 20:41 Dose: 100 mg Gabapentin (Gabapentin 300 Mg Capsule) 600 mg PO BEDTIME [facility] Last Admin: 01/24/24 20:41 Dose: 600 mg Hydroxyzine HCl (Hydroxyzine Hcl 25 Mg Tablet) 25 mg PO Q6H PRN PRN Reason: Anxiety Last Admin: 01/24/24 20:45 Dose: 25 mg Loratadine (Loratadine 10 Mg Tablet) 10 mg PO DAILY PRN PRN Reason: Allergy Symptoms Magnesium Hydroxide (Milk Of Magnesia 30 Ml Oral.Susp) 30 ml PO DAILY PRN PRN Reason: Constipation Mirtazapine (Mirtazapine 7.5 Mg Tablet) 7.5 mg PO BEDTIME [facility] Last Admin: 01/24/24 20:41 Dose: 7.5 mg Nicotine Polacrilex (Nicotine Polacrilex 2 Mg Gum) 2 mg BUCCAL Q2H PRN PRN Reason: Nicotine Cravings Last Admin: 01/13/24 07:48 Dose: 2 mg Omeprazole (Omeprazole 20 Mg Capsule.Dr) 20 mg PO BID@0630,1630 [facility] Last Admin: 01/24/24 16:22 Dose: 20 mg Paliperidone Palmitate (Paliperidone Palmitate 234 Mg/1.5 Ml Syringe) 234 mg IM Q30D [facility] Last Admin: 01/23/24 11:15 Dose: 234 mg Thiamine HCl (Thiamine Hcl 100 Mg Tablet) 100 mg PO BID [facility] Last Admin: 01/24/24 20:41 Dose: 100 mg Trazodone HCl (Trazodone Hcl 50 Mg Tablet) 50 mg PO BEDTIME MRX1 PRN PRN Reason: Insomnia Last Admin: 01/24/24 21:58 Dose: 50 mg Allergies Allergies Allergy/AdvReac Type Severity Reaction Status Date / Time bee pollen Allergy Severe Anaphylaxis Verified 01/25/22 15:16 levofloxacin [From Levaquin] Allergy Severe Itching Verified 01/25/22 15:16 enoxaparin [From Lovenox] Allergy Intermediate Rash Verified 01/25/22 15:16 Seasonal Allergies Allergy Mild Runny Nose Verified 01/09/24 14:19 venlafaxine [From Effexor] Allergy Mild Constipatio Verified 01/09/24 14:19 n Penicillins Allergy Unknown Unknown Verified 01/25/22 15:16 Assessment & Plan Assessment & Plan (1) Bipolar 1 disorder, depressed, severe: Status: Acute Code(s): F31.4 - Bipolar disorder, current episode depressed, severe, without psychotic features Plan The patient is an adult female with a past history of bipolar disorder and catatonia who was transferred a few months ago to this facility for ECT. The patient had a successful course of ECT with resolution of her catatonia and was discharged to the community. While she was in the community, having ECT as an outpatient the patient decompensated. She was reassessed by crisis and transfer here for continuation of care. Plan 1. Gather collateral information. 2. The patient is able to contract for safety so we are changing to 50 minute checks. 3. We will continue with her Invega Sustenna and other neuroleptics as a mood stabilizer. 4. We will need to have a new medical assessment for continuation of treatment with ECT. The patient is willing to continue having ECT treatment. She is scheduled for next Sunday. 5. Start Remeron 7.5 mg p.o. q.h.s. to target depression 01/12/2024 Vraylar ECT scheduled 01/13/2024 ECT scheduled for 4 days monitor response to Vraylar 1.5 mg 01/13: depressed. awaiting ECT Weds. continue current mgmt in the meantime. 01/14: cleared for ECT. planning to start tomorrow. sleeping better, no longer pacing. remains depressed. 01/16/24 Ect completed reevaluate in am vraylar 3 mg 01/17/2024 Continue Vraylar continue ECT 01/17 see ect not e cont vraylar 01/24/24 d/c tomm much improved Reason for continued inpatient stay Substantial Risk for: rapid decompensation Time Spent With Patient Time: Total time managing care of this patient today ____ minutes.
[2024-01-25] MEDS: Omeprazole 20 MG CAPSULE.DR PO (05:36)
[2024-01-25 08:00] VITALS: BP 106/79; PULSE 85; RESP 15; TEMP 36.7; O2SAT 97
[2024-01-25] MEDS: Benztropine Mesylate 0.5 MG TABLET 0.25 MG PO (08:11)
[2024-01-25] MEDS: Cariprazine HCl 3 MG CAPSULE PO (08:11)
[2024-01-25] MEDS: Docusate Sodium 100 MG CAPSULE PO (08:12)
[2024-01-25] MEDS: Thiamine HCL 100 MG TABLET PO (08:12)
--- NOTE | 2024-01-25 10:36 | PM.PSYDC ---
DS: Providers Provider Date of Service: 01/25/24 Date of admission: 01/09/24 18:18 Date of discharge: 01/25/24 Primary care physician: Theresa Nelson MD Consults: 01/11/24 09:00 Consult to Hospitalist Routine Comment: Consulting Provider: Hospitalist Reason For Exam: on ECT, needs new clearance, schedule for 01/15 DS: Diagnosis Discharge Diagnosis (1) Bipolar 1 disorder, depressed, severe: Status: Acute DS: Medications Discharge Medications Home Medications: Previous Rx's ?Medication ?Instructions ?Recorded benztropine 0.5 mg tablet 0.25 mg (1/2 x 0.5 mg) PO BID 30 12/21/23 days #30 tabs cyclobenzaprine 10 mg tablet 10 mg PO TID PRN muscle spasm 30 12/21/23 days #60 tabs docusate sodium 100 mg capsule 1 cap PO BID 30 days #60 caps 12/21/23 gabapentin 300 mg capsule 600 mg (2 x 300 mg) PO BEDTIME 30 12/21/23 days #60 caps hydroxyzine HCl 25 mg tablet 25 mg PO Q6H PRN Anxiety 30 days 12/21/23 #60 tabs loratadine 10 mg tablet (Claritin) 10 mg PO DAILY PRN Allergy 12/21/23 Symptoms 30 days #30 tabs omeprazole 20 mg capsule,delayed 20 mg PO BID 30 days #60 caps 12/21/23 release paliperidone palmitate 234 mg/1.5 234 mg (1.5 mL) IM Q30D 30 days 12/21/23 mL intramuscular syringe (Invega #1.5 mL Sustenna) thiamine mononitrate (vit B1) 100 100 mg PO BID 30 days #60 tabs 12/21/23 mg tablet trazodone 50 mg tablet 50 mg PO BEDTIME MRX1 PRN Insomnia 12/21/23 30 days #60 tabs eszopiclone 3 mg tablet (Lunesta) 3 mg PO BEDTIME #30 tabs 01/02/24 Mental Status Exam Mental Status Exam Patient Appearance: Well Grooomed and Appropriate Patient Orientation: Person and Situation Level of Consciousness: Awake and Appropriate Patient Behavior: Appropriate and Passive Mood Description: Calm Affect Description: Constricted Patient Cognition Impaired: Yes Ability to Follow Directions: Good Speech Pattern: Clear Hallucinations: None Delusions: Not Present Thought Process: Distracted and Slowed Thinking Thought Content: positive for [place] and positive for Poverty of Content Judgement: Fair DS: Summary Hospital Course Hospital Course: The patient is a 68-year-old female with a past history of bipolar disorder who was discharged from this facility a few days before of the readmission. The patient initially was transferred from [facility] for catatonia, she received ECT and she improved and discharged to the community. Unfortunately, she decompensated and when she came for her ECT she was grossly depressed, psychotic and confused, transferred to the emergency room, assessed by crisis and transferring to this facility for psychiatric stabilization. On admission the patient reported depression so a low dose of Remeron was added. Later on, Vraylar was started with for tolerability. The patient finished her course of ECT, she was future oriented. Several family meetings were held, her siblings were exhausted since the patient has a chronic history of noncompliance. The patient's mood improved, she was able to contract for safety and since there were no safety concerns discharge planning was discussed. Several ancillary services were arranged in the community so the patient could be successful. Time spent discussing smoking cessation with patient: 3 to 10 minutes Status at Discharge Cognitive/behavioral status at discharge: At baseline Functional status at discharge: independent ambulation Overall status at discharge: patient is back to baseline Time Spent with Patient Time attestation: Total time managing care of this patient today _30___ minutes. Time spent: Less than 30 minutes Discharge Plan Discharge Anticipated Discharge Date/Time: 01/25/24 11:00 Patient Disposition: Home, Self-Care Discharge Diagnosis: Bipolar disorder most recent episode depressed Referrals: Chino Gibson NP [Other] - 01/25/24 1:30 pm (Your next appointment with Chino Gibson for psychiatry is scheduled for Sunday01/25/24 at 1:30PM. This appointment is in person. ) Jojo CORTEZ [Other] - 01/26/24 ([place] to provide nursing service for daily medication management and monthly Invega Sustenna injections. [facility] will provide home visit following discharge to start your services. Your services are due to start on Sunday01/26/24. Please be home and available to receive their phone call to schedule home visit and to receive home visit on Sunday. ) [facility] [Other] - 01/25/24 (Your case manager specialist Leigh has requested increase in your homemaking hours through [facility] and is requesting a tree thinner service. Leigh and Neal Krishna will follow up with you following discharge. Please be available by phone for call to schedule home visit for restart of services. Services through [facility] to resume at date of discharge. Your hours will be increased from 8.5 to 13.5 homemaking hours and also a tree thinner service for 4 hours weekly. Your case manager specialist Leigh will call you today 01/24 to review your services and answer any questions you may have. Her phone number is: [phone] The schedule of new hours is as follows starting 01/28/24. Mondays: 4hrs HM 8:45am-12:45pm Tuesdays: 2hrs COMP 11:30am-1:30pm : 4.5hrs HM 8:15am-12:45pm Fridays 2hrs COMP 11:30am-1:30pm ) [facility] [Other] - 01/25/24 5:00 pm (Your next therapy appointment with Ana Polk is scheduled for 01/25/24 via telehealth/phone at 5PM.) [facility] [Other] - 3-5 Days (Your caretaker Maame Mares will contact you by phone to follow up and please be available for call and home visit from [facility] Clara Ma at ext [phone]. For rides to appointments and errands please contact the [facility] transportation line at [phone] and give at least 3 days in advance notice.) Theresa Nelson MD [Primary Care Provider] - 01/31/24 3:20 pm (Your follow up appointment has been scheduled for 01/31/24 at 3:20pm. ) Discharge Medications: New mirtazapine 7.5 mg Tablet 7.5 mg PO BEDTIME 30 Days Qty: 30 0RF Vraylar 3 mg Capsule 3 mg PO DAILY 30 Days Qty: 30 0RF Continued eszopiclone [Lunesta] 3 mg tablet 3 mg PO BEDTIME Qty: 30 0RF benztropine 0.5 mg Tablet 0.25 mg PO BID 30 Days Qty: 30 0RF trazodone 50 mg Tablet 50 mg PO BEDTIME MRX1 PRN (Reason: Insomnia) 30 Days Qty: 60 0RF gabapentin 300 mg Capsule 600 mg PO BEDTIME 30 Days Qty: 60 0RF hydroxyzine HCl 25 mg Tablet 25 mg PO Q6H PRN (Reason: Anxiety) 30 Days Qty: 60 0RF Invega Sustenna 234 mg/1.5 mL Syringe 234 mg IM Q30D 30 Days Qty: 1.5 0RF thiamine mononitrate (vit B1) 100 mg Tablet 100 mg PO BID 30 Days Qty: 60 0RF cyclobenzaprine 10 mg tablet 10 mg PO TID PRN (Reason: muscle spasm) 30 Days Qty: 60 1RF docusate sodium 100 mg capsule 1 cap PO BID 30 Days Qty: 60 0RF omeprazole 20 mg capsule,delayed release(DR/EC) 20 mg PO BID 30 Days Qty: 60 0RF loratadine [Claritin] 10 mg Tablet 10 mg PO DAILY PRN (Reason: Allergy Symptoms) 30 Days Qty: 30 1RF Discharge Orders: Discharge Order (Routine); Ordered 01/25/24 Ordered By: Javier Mccabe Activity on Discharge: As tolerated Stand Alone Forms: Patient Portal Discharge page Print Language: Greenlandic Care Plan Goals: Care plan goals achieved in this admission Health Concerns: Continue treatment with primary care physician as an outpatient Plan of Treatment: Continue psychiatric treatment as an outpatient Assessment: Elderly female with a past history of bipolar who was readmitted after she was depressed and psychotic. Medications were adjusted and she finished her course of ECT. At this moment safe to be discharged into the community.
== END 2024-01-25 11:53 | disposition home or self-care (01) | DRG 885 ==
LOC: HO.ED 15:16 → HO.PGERI 18:45
PROVIDERS: Physician Assistant Medical; Psychiatry & Neurology Psychiatry; Admitting Provider Clinical Nurse Specialist Psychiatric/Mental Health, Adult; Emergency Provider Emergency Medicine; PCP Family Medicine; Visit Provider Clinical Nurse Specialist Psychiatric/Mental Health, Adult
PROC: GZB4ZZZ Other Electroconvulsive Therapy (ICD-10-PCS; CPT 90870; principal; 2024-01-16 07:00)
DX: F31.4 Bipolar disorder, current episode depressed, severe, without psychotic features (principal); K21.9 Gastro-esophageal reflux disease without esophagitis; F17.210 Nicotine dependence, cigarettes, uncomplicated; Z71.6 Tobacco abuse counseling; G25.81 Restless legs syndrome; Z86.718 Personal history of other venous thrombosis and embolism; Z79.899 Other long term (current) drug therapy
CPT/HCPCS: 36415; 80048; 80061; 80076; 80307; 81001; 82607; 82746; 83036; 83735; 84439; 84443; 85025; 90870; 93005; 99285; J0330; J1596; J1630; J1805; J1885; J2250; J2405; J2426; J2704; J7120; S9485

== ENCOUNTER 2024-01-09 18:18 | Outpatient (BNV) | payer OTHER, SELFPAY | END 2024-01-14 | PROVIDERS: Admitting Provider Clinical Nurse Specialist Psychiatric/Mental Health, Adult; Emergency Provider Emergency Medicine; PCP Family Medicine; Visit Provider Internal Medicine Cardiovascular Disease | DX: R94.31 Abnormal electrocardiogram [ECG] [EKG] (principal) | CPT/HCPCS: 93010 ==

== ENCOUNTER → 2024-01-09 18:18 | Outpatient (BNV) | payer OTHER, SELFPAY | PROVIDERS: Admitting Provider Clinical Nurse Specialist Psychiatric/Mental Health, Adult; Emergency Provider Emergency Medicine; PCP Family Medicine; Visit Provider Psychiatry & Neurology Psychiatry | DX: F31.4 Bipolar disorder, current episode depressed, severe, without psychotic features (principal) | CPT/HCPCS: 90870; 99231; 99232 ==

== ENCOUNTER → 2024-01-09 18:18 | Outpatient (BNV) | payer OTHER, SELFPAY | PROVIDERS: Admitting Provider Clinical Nurse Specialist Psychiatric/Mental Health, Adult; Emergency Provider Emergency Medicine; PCP Family Medicine; Visit Provider Student in an Organized Health Care Education/Training Program | DX: Z02.2 Encounter for examination for admission to residential institution (principal) | CPT/HCPCS: 99429; 99499 ==

== ENCOUNTER → 2024-01-09 18:18 | Outpatient (BNV) | payer OTHER, SELFPAY | PROVIDERS: Admitting Provider Clinical Nurse Specialist Psychiatric/Mental Health, Adult; Emergency Provider Emergency Medicine; PCP Family Medicine; Visit Provider Psychiatry & Neurology Psychiatry | DX: F31.4 Bipolar disorder, current episode depressed, severe, without psychotic features (principal) | CPT/HCPCS: 90792; 90870; 99231; 99232; 99238; 99499 ==

== ENCOUNTER 2024-03-14 10:04 | Outpatient (AMB) | payer OTHER, SELFPAY ==
--- NOTE | 2024-03-14 10:09 | A.OFFVIS_ITS ---
Vital Signs 03/14/24 10:10 Height 5 ft 6.5 in Weight 144 lb BMI 22.9 Intake Visit Reasons: OV-B/L knee pain-had LT TKA on 08/09/21 Allergies bee pollen Allergy (Severe, Verified 01/25/22 15:16) Anaphylaxis levofloxacin [From Levaquin] Allergy (Severe, Verified 01/25/22 15:16) Itching enoxaparin [From Lovenox] Allergy (Intermediate, Verified 01/25/22 15:16) Rash Seasonal Allergies Allergy (Mild, Verified 01/09/24 14:19) Runny Nose venlafaxine [From Effexor] Allergy (Mild, Verified 01/09/24 14:19) Constipation Penicillins Allergy (Unknown, Verified 01/25/22 15:16) Unknown HPI HPI OV-B/L knee pain-had LT TKA on 08/09/21: Details: Steffi is a 68 year old female who presents today for a follow up of her bilateral knee pain, she is s/p Left TKA 08/09/21. Patient reports that the left knee is still painful since surgery, she describes achiness that makes it difficult to get up from a seated position. She utilizes icy hot and warm baths which provides temporary relief. She reports ongoing history or right knee pain, she has no previous therapies for the right knee. [facility] Medical History History of skin cancer Hx of bladder problems VITO (generalized anxiety disorder) Murmur, cardiac Hx of thyroid nodule Osteopenia Hx of skin cancer, basal cell Seasonal allergies Insomnia Constipation GERD (gastroesophageal reflux disease) Anxiety History of electroconvulsive therapy Bipolar 1 disorder Surgical History Hx of colonoscopy H/O elbow surgery History of back surgery Family History Mother Basal cell carcinoma (BCC) in situ of skin Osteoporosis Hyperlipidemia Father CAD (coronary artery disease) Alcoholism Sister Osteoporosis Depression Brother Cancer of tongue Cancer of skin Social History Household Members: None Housing: Apartment Are you a primary gericare aide to a significant other at home: No Do you presently have visiting nurse or other home services: No Unable to assess alcohol history related to: Unable to respond Comment: 1:1 suoervision Patient Tobacco Use Status: Never used Tobacco Tobacco use type: Cigarette Years Smoked: 30+, now vapes e-Cigarette/Vaping Use: Currently Using Second Hand Smoke Exposure: No Substance Use Type: Crack/Cocaine service: No Current occupational status: unemployed and retired 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 Sexual orientation: Straight/Heterosexual Physical Exam Vital Signs: BMI result Body Mass Index 22.9 Extrem Other: well-healed left knee incision with 0-125 deg of motion and no effusion. Stable arc of motion with stable ligamentous exam. anatomic alignment Right knee with ttp medial joint line with 5 deg flexion contracture. Moderate varus deformity. Office Procedures Joint Injection/Aspiration Joint Injection/Aspiration Details: Injected 1 mL of Decadron and 3 mL 1% lidocaine and 3 mL of 0.25% Marcaine. Site was prepped using aseptic technique. Patient tolerated the procedure well. Primary Site: right knee Approach Used: anterolateral Coding - Large joint Procedure code (CPT) selection complete Assessment & Plan Assessment & Plan (1) Status post total knee replacement, left: Code(s): Z96.652 - Presence of left artificial knee joint Category: Surgical Plan: No complications. Alignment and motion excellent. (2) Varus deformity of knee: Code(s): M21.169 - Varus deformity, not elsewhere classified, unspecified knee Category: Medical Plan: right knee varus alignement (3) Arthritis of right knee: Code(s): M17.11 - Unilateral primary osteoarthritis, right knee Category: Medical Plan: Injected right knee. She doesn't want surgery at this time but I did discuss the goals and benefits of correcting her painful varus. She will let me know if injections are not sufficiently helpful. Coding Level of Care Code Est Pt Level 4 (98803) Diagnoses Status post total knee replacement, left Z96.652 Varus deformity of knee M21.169 Arthritis of right knee M17.11 CPT Codes Coding - Large joint: 27399 - Large joint ([id number])
[2024-03-14 10:10] VITALS: BMI 22.9
== END 2024-03-14 10:42 | disposition home or self-care (01) ==
PROVIDERS: PCP Family Medicine; Visit Provider Orthopaedic Surgery
DX: M17.11 Unilateral primary osteoarthritis, right knee (principal); M21.161 Varus deformity, not elsewhere classified, right knee; Z96.652 Presence of left artificial knee joint
CPT/HCPCS: 20610; 99214

== ENCOUNTER → 2024-03-14 10:04 | Outpatient (BNVA) | payer OTHER, SELFPAY | PROVIDERS: PCP Family Medicine; Visit Provider Orthopaedic Surgery | DX: M21.169 Varus deformity, not elsewhere classified, unspecified knee (principal); M17.11 Unilateral primary osteoarthritis, right knee; M25.562 Pain in left knee; Z96.652 Presence of left artificial knee joint | CPT/HCPCS: 20610; 99212; J0665; J1100 ==

== ENCOUNTER 2024-04-03 14:35 | Emergency (ER) | payer OTHER, SELFPAY ==
--- NOTE | 2024-04-03 15:12 | ED_ITS ---
HPI - Psych General Chief Complaint: Psychiatric Symptoms Stated Complaint: crisis Time Seen by Provider: 04/03/24 16:09 Source: patient Mode of arrival: ambulatory Limitations: no limitations History of Present Illness ED Provider: Arvind Martinez HPI Narrative: 68-year-old female history of depression, bipolar, GERD, anxiety, insomnia, DVT presents to the ED for severe depression and vague SI thoughts. Patient has no plan. Patient states vague suicidal thoughts because her dog is diabetic. Patient states sleeping but not really eating. Patient denies any physical complaints. Patient denies any SI attempt Related Data Previous Rx's ?Medication ?Instructions ?Recorded benztropine 0.5 mg tablet 0.25 mg (1/2 x 0.5 mg) PO BID 30 12/21/23 days #30 tabs cyclobenzaprine 10 mg tablet 10 mg PO TID PRN muscle spasm 30 12/21/23 days #60 tabs docusate sodium 100 mg capsule 1 cap PO BID 30 days #60 caps 12/21/23 gabapentin 300 mg capsule 600 mg (2 x 300 mg) PO BEDTIME 30 12/21/23 days #60 caps hydroxyzine HCl 25 mg tablet 25 mg PO Q6H PRN Anxiety 30 days 12/21/23 #60 tabs loratadine 10 mg tablet (Claritin) 10 mg PO DAILY PRN Allergy 12/21/23 Symptoms 30 days #30 tabs omeprazole 20 mg capsule,delayed 20 mg PO BID 30 days #60 caps 12/21/23 release paliperidone palmitate 234 mg/1.5 234 mg (1.5 mL) IM Q30D 30 days 12/21/23 mL intramuscular syringe (Invega #1.5 mL Sustenna) thiamine mononitrate (vit B1) 100 100 mg PO BID 30 days #60 tabs 12/21/23 mg tablet eszopiclone 3 mg tablet (Lunesta) 3 mg PO BEDTIME #30 tabs 01/02/24 cariprazine 3 mg capsule (Vraylar) 3 mg PO DAILY 30 days #30 caps 01/25/24 mirtazapine 7.5 mg tablet 7.5 mg PO BEDTIME 30 days #30 tabs 01/25/24 Allergies Allergy/AdvReac Type Severity Reaction Status Date / Time bee pollen Allergy Severe Anaphylaxis Verified 04/03/24 15:14 levofloxacin [From Levaquin] Allergy Severe Itching Verified 04/03/24 15:14 enoxaparin [From Lovenox] Allergy Intermediate Rash Verified 04/03/24 15:14 Seasonal Allergies Allergy Mild Runny Nose Verified 04/03/24 15:14 venlafaxine [From Effexor] Allergy Mild Constipatio Verified 04/03/24 15:14 n Penicillins Allergy Unknown Unknown Verified 04/03/24 15:14 Review of Systems 2 Review of Systems: Suicidal statement. Severe depression Yes all other systems are reviewed and are negative PMFSH Past Medical History Medical History History of skin cancer Hx of bladder problems VITO (generalized anxiety disorder) Murmur, cardiac Hx of thyroid nodule Osteopenia Hx of skin cancer, basal cell Seasonal allergies Insomnia Constipation GERD (gastroesophageal reflux disease) Anxiety History of electroconvulsive therapy Bipolar 1 disorder Surgical History Hx of colonoscopy H/O elbow surgery History of back surgery Family History Family History Mother Basal cell carcinoma (BCC) in situ of skin Osteoporosis Hyperlipidemia Father CAD (coronary artery disease) Alcoholism Sister Osteoporosis Depression Brother Cancer of tongue Cancer of skin Social History Social History Household Members: None Housing: Apartment Are you a primary care mgr to a significant other at home: No Do you presently have visiting nurse or other home services: No Unable to assess alcohol history related to: Unable to respond Comment: 1:1 suoervision Patient Tobacco Use Status: Never used Tobacco Tobacco use type: Cigarette Years Smoked: 30+, now vapes Smoked in Last 30 Days: No e-Cigarette/Vaping Use: Currently Using Second Hand Smoke Exposure: No Use of substances other than those prescribed or required for medical reasons: No Substance Use Type: Crack/Cocaine Advance Directives: No Advance Directives Information Provided: No Do you have a plan to hurt others: No Plan service: No Current occupational status: unemployed and retired 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 Sexual orientation: Straight/Heterosexual Physical Exam 2 Vital Signs: Vital Signs: Last Vital Signs Temp 97.5 F 04/03/24 20:27 Pulse 75 04/03/24 20:27 Resp 16 04/03/24 20:27 BP 137/81 04/03/24 20:27 Pulse Ox 96 04/03/24 20:27 O2 Del Method Room Air 04/03/24 20:27 BMI result Body Mass Index 23.1 Const: General: cooperative, healthy appearing, comfortable, no acute distress, well developed, alert, awake and Physically active O rientation/consciousness: patient oriented x3 HEENT: Head: Yes normal to inspection, Yes No palpable skull fracture present, Yes normocephalic, Yes atraumatic and No abrasion Eyes: General: appearance normal, both eyes and all related structures Neck: Neck: Yes normal visual inspection, Yes full ROM, Yes no lymphadenopathy, Yes no meningeal signs, Yes trachea midline, Yes supple, No anterior neck swelling and No tender Chest: Chest palpation & inspection: normal inspection of the chest and normal palpation of entire chest wall Resp: Effort & Inspection: normal respiratory effort and able to speak in complete sentences Auscultation: clear to auscultation bilaterally Cardio: Jugular venous distension: no JVD Heart sounds: S1 normal heart sound present and S2 normal heart sound present GI: Inspection: Yes normal to inspection Palpation (GI): Soft to palpation, not firm, nontender, no guarding and not rigid : General: No CVA tenderness and Yes no CVA tenderness Back/Spine/Pelvis: Back: no CVA tenderness, No CVA tenderness and No back tenderness Skin: General skin exam: no rashes or lesions noted, elasticity normal and turgor normal Neuro: General: patient oriented x3, gait normal, tone normal, moves all extremities, Normal light touch and pain sensation, no meningeal signs, no focal motor deficits, CN's II-XI intact bilaterally and normal sensation to monofilament Extrem: General: Yes normal to inspection, Yes full ROM and Yes capillary refill normal Psych: Appearance: grossly normal, well kempt and not disheveled Course Course Course Narrative: This is a Rapid Medical Examination (RME) performed by Francisco Chun PA-C in triage. Full HPI, ROS, assessment and treatment plan per primary provider in the Main ED. 68 yo female with history of bipolar disorder, anxiety, GERD, who presents to the ER for evaluation of severe depression. no SI but she is afraid she is going to get to that point. had ECT a couple of months ago and did well with that. med compliant. no drugs or etoh. feels like she would benefit from psych admission. Plan: medical clearance, care team evaluation Medical Decision Making Medical Decision Making [facility] Narrative: 58-year-old female history of severe depression presents to ED for being depressed due to dog being diabetic. Patient states she is sleeping, but not eating. Patient had a sandwich today in the ED visits. Patient denies any auditory/visual hallucinations. Patient has no plan but states SI. Labs care team consult placed 7: 58pm Care team crm consultant Carito evaluated patient and states patient does not need to be admitted. Patient denies any suicidal or homicidal ideation and has follow-up with therapist. 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 Patient agreeable with plan and is safe for discharge Differential Diagnosis Differential Diagnoses: The differential diagnosis associated with the presentation includes (Depression, SI,) Admission/Observation Consideration of admission/observation: Escalation of care including admission/observation considered Consult Healthcare Provider Management of the patient was discussed with: Coal Gasification Technician (Care team Carito) Lab Data [facility] Lab Attestation statement: I reviewed the patient's lab results. 04/03/24 16:07 04/03/24 16:07 Labs: Lab Results 04/03/24 Range/Units 16:07 WBC 6.1 (4.8-10.8) X10*3/uL RBC 4.51 (4.20-5.50) X10*6/uL Hgb 13.5 (12.0-16.0) g/dl Hct 39.9 (37.0-47.0) % MCV 88.5 (80.0-98.0) fL MCH 29.9 (27.0-33.0) pg MCHC 33.8 (31.0-35.0) g/dl RDW 12.5 (11.0-16.0) % Plt Count 237 (160-400) X10*3/uL MPV 8.4 L (9.4-12.3) fL Immature Gran % (Auto) 0.5 H (0.0-0.4) % Neut % (Auto) 57.7 (45-73) % Lymph % (Auto) 32.7 (20-40) % [place] % (Auto) 7.6 (2-11) % Eos % (Auto) 1.0 (0-4) % Baso % (Auto) 0.5 (0-2) % Lymph # (Auto) 2.0 (1.2-4.9) X10*3/uL [place] # (Auto) 0.5 (0.1-1.2) X10*3/uL Eos # (Auto) 0.1 (0.0-0.4) X10*3/uL Baso # (Auto) 0.0 (0.0-0.2) X10*3/uL Abs Immat Gran (auto) 0.03 (0.00-0.03) X10*3/uL Absolute Neuts (auto) 3.5 (2.0-8.3) x10*3/uL Absolute Nucleated RBC 0.000 (0.0-0.012) X10*3/uL Nucleated RBC % (auto) 0.0 (0.0-0.2) /100WBC Sodium 141 (135-145) mmol/L Potassium 3.8 (3.3-5.1) mmol/L Chloride 109 H (96-108) mmol/L Carbon Dioxide 25 (22-29) mmol/L Anion Gap 13 (12-20) BUN 14 (9-16) mg/dL Creatinine 0.70 (0.5-1.4) mg/dL Estim Creat Clear Calc 74.0 Estimated GFR > 60 Random Glucose 89 (60-115) mg/dL Calcium 9.8 (8.4-10.2) mg/dL Magnesium 2.1 (1.6-2.6) mg/dL Total Bilirubin 0.2 (0.0-1.0) mg/dL Direct Bilirubin < 0.2 (0.0-0.5) mg/dL AST 20 (5-31) U/L ALT 13 (0-31) U/L Alkaline Phosphatase 95 (39-117) U/L Total Protein 7.1 (6.5-8.0) g/dL Albumin 4.2 (3.5-5.0) g/dL TSH 0.50 (0.32-4.0) uIU/mL Urine Color Yellow Urine Appearance Clear Urine pH 7.0 (5.0-9.0) Ur Specific [place] 1.020 (1.005-1.025) Urine Protein Negative (Neg-Trace) mg/dL Urine Glucose (UA) Negative (Negative) mg/dL Urine Ketones Negative (Negative) mg/dL Urine Blood Negative (Negative) Urine Nitrite Negative (Negative) Ur Leukocyte Esterase Large (3+) H (Negative) Urine RBC 0-2 (0-2) /HPF Urine WBC 11-20 (0-5) /HPF Ur Squamous Epith Cells 6-10 (0-2) /HPF Urine Bacteria None Seen (None Seen) Hyaline Casts 0-2 (0-2) /LPF Urine Opiates Screen Not Detected (Not Detect) Ur Buprenorphine Scrn Not Detected (Not Detect) ng/mL Ur Oxycodone Screen Not Detected (Not Detect) ng/mL Urine Methadone Screen Not Detected (Not Detect) ng/mL Urine Fentanyl Screen Not Detected (Not Detect) Ur Barbiturates Screen Not Detected (Not Detect) Ur Phencyclidine Scrn Not Detected (Not Detect) Ur Amphetamines Screen Not Detected (Not Detect) U Benzodiazepines Scrn Not Detected (Not Detect) Urine Cocaine Screen Not Detected (Not Detect) U Marijuana (THC) Screen Not Detected (Not Detect) Ethyl Alcohol < 10 mg/dL Independent Historian Clinical information obtained from an independent historian. History obtained from or confirmed by: Other (Patient) External Record Review External record reviewed: Other (Prior visits) Discharge Plan Discharge Clinical Impression: Bipolar 1 disorder, depressed, severe Patient Disposition: Home, Self-Care Instructions: Bipolar Disorder (ED), Depression (ED) Additional Instructions: Return to the ED immediately for any suicidal/homicidal ideation, depression, auditory/visual hallucinations, any physical complaints, or any other concerning symptoms. Recommend follow-up with primary care provider and therapist. Prescriptions: No Action eszopiclone [Lunesta] 3 mg tablet 3 mg PO BEDTIME Qty: 30 0RF benztropine 0.5 mg Tablet 0.25 mg PO BID 30 Days Qty: 30 0RF gabapentin 300 mg Capsule 600 mg PO BEDTIME 30 Days Qty: 60 0RF hydroxyzine HCl 25 mg Tablet 25 mg PO Q6H PRN (Reason: Anxiety) 30 Days Qty: 60 0RF Invega Sustenna 234 mg/1.5 mL Syringe 234 mg IM Q30D 30 Days Qty: 1.5 0RF thiamine mononitrate (vit B1) 100 mg Tablet 100 mg PO BID 30 Days Qty: 60 0RF cyclobenzaprine 10 mg tablet 10 mg PO TID PRN (Reason: muscle spasm) 30 Days Qty: 60 1RF docusate sodium 100 mg capsule 1 cap PO BID 30 Days Qty: 60 0RF omeprazole 20 mg capsule,delayed release(DR/EC) 20 mg PO BID 30 Days Qty: 60 0RF loratadine [Claritin] 10 mg Tablet 10 mg PO DAILY PRN (Reason: Allergy Symptoms) 30 Days Qty: 30 1RF mirtazapine 7.5 mg Tablet 7.5 mg PO BEDTIME 30 Days Qty: 30 0RF Vraylar 3 mg Capsule 3 mg PO DAILY 30 Days Qty: 30 0RF Interventions: [place]-Suicide Risk Severity Scale Last Done: 04/03/24 20:03 ED Discharge Assessment Last Done: 04/03/24 20:27 Discharge Date/Time: 04/03/24 20:27 Print Language: [place]an
[2024-04-03 15:13] VITALS: BP 150/88; PULSE 81; RESP 16; TEMP 36.3; O2SAT 96; BMI 23.1
--- NOTE | 2024-04-03 15:37 | PC.NURSE ---
patient from external triage with cc of increasing depression, denies SI states i want to get help before it gets to that point patient denies SI/HI, denies AH/VH. states she got ECT and it helped when she was inpatient last time but feels as if she needs more and would like to come in inpatient again. patient denies any medical complaints, denies chest pain, shortness of breath, nausea vomiting or diarrhea. patient is alert and orientedx4 and calm and cooperative with this RN. answers questions appropriately, appears well groomed, and is agreeable to plan of care at this time.
[2024-04-03 16:14] LABS: MANUAL DIFF FLAG NO
[2024-04-03 16:20] LABS: Appearance Urine Clear; Basophils Percent Auto 0.5 % (0-2); Color Urine Yellow; Eosinophils Absolute Auto 0.1 X10*3/uL (0.0-0.4); Glucose Urine UA Negative (Negative); Hematocrit 39.9 % (37.0-47.0); Hemoglobin 13.5 g/dl (12.0-16.0); Imm Gran Abs Auto 0.03 X10*3/uL (0.00-0.03); Imm Gran Pct Auto 0.5 % (0.0-0.4); Leukocyte Esterase Urine Large (3+) (Negative); Lymphocytes Percent Auto 32.7 % (20-40); Mean Corpuscular HGB Conc 33.8 g/dl (31.0-35.0); Mean Corpuscular Hemoglobin 29.9 pg (27.0-33.0); Mean Corpuscular Volume 88.5 fL (80.0-98.0); Mean Platelet Volume 8.4 fL (9.4-12.3); Monocytes Absolute Auto 0.5 X10*3/uL (0.1-1.2); Monocytes Percent Auto 7.6 % (2-11); Neutrophils Absolute Auto 3.5 x10*3/uL (2.0-8.3); Neutrophils Percent Auto 57.7 % (45-73); Nitrite Urine Negative (Negative); Platelet Count 237 X10*3/uL (160-400); Red Blood Count 4.51 X10*6/uL (4.20-5.50); Red Cell Distribution Width 12.5 % (11.0-16.0); UMIC TRIGGER UACC YES; Urine Blood Negative (Negative); Urine Ketones Negative (Negative); Urine Protein Negative (Neg-Trace); White Blood Count 6.1 X10*3/uL (4.8-10.8)
[2024-04-03 16:32] LABS: Bacteria Urine None Seen (None Seen); Hyaline Casts Urine 0-2 /LPF (0-2); RBC Urine 0-2 /HPF (0-2); UACC Culture Trigger YES
[2024-04-03 16:33] VITALS: BP 135/83; PULSE 76; RESP 16; TEMP 36.4; O2SAT 97
[2024-04-03 16:33] LABS: Amphetamine Screen Urine Not Detected (Not Detect); Barbiturates, Urine Not Detected (Not Detect); Benzodiazepines Screen Urine Not Detected (Not Detect); Buprenorphine Scr Not Detected (Not Detect); Cannabinoid Screen Urine Not Detected (Not Detect); Cocaine Screen Urine Not Detected (Not Detect); Fentanyl, urine Not Detected (Not Detect); Methadone Screen, Urine Not Detected (Not Detect); Opiate Screen Urine Not Detected (Not Detect); Oxycodone Screen Urine Not Detected (Not Detect); Phencyclidine Screen Urine Not Detected (Not Detect)
[2024-04-03 16:42] LABS: Alanine Aminotransferase 13 U/L (0-31); Albumin Level 4.2 g/dL (3.5-5.0); Alkaline Phosphatase 95 U/L (39-117); Aspartate Amino Transferase 20 U/L (5-31); Bilirubin Direct < 0.2 mg/dL (0.0-0.5); Bilirubin Total 0.2 mg/dL (0.0-1.0); Blood Urea Nitrogen 14 mg/dL (9-16); Calcium 9.8 mg/dL (8.4-10.2); Carbon Dioxide 25 mmol/L (22-29); Chloride 109 mmol/L (96-108); Estimated Glomerular Filt Rate > 60; Ethanol < 10 mg/dL; Glucose Random 89 mg/dL (60-115); Magnesium 2.1 mg/dL (1.6-2.6); Potassium 3.8 mmol/L (3.3-5.1); Sodium 141 mmol/L (135-145); Total Protein 7.1 g/dL (6.5-8.0)
[2024-04-03 16:57] LABS: Anion Gap 13 (12-20)
--- NOTE | 2024-04-03 17:24 | PC.NURSE ---
patient stating she wants to go home, denies SI to this RN, Arvind DÍAZ made aware, states he will come talk to patient
[2024-04-03 18:10] VITALS: BP 137/81; PULSE 75; RESP 16; TEMP 36.4; O2SAT 96
--- NOTE | 2024-04-03 18:40 | PC.NURSE ---
patient provided with dinner tray
--- NOTE | 2024-04-03 19:45 | MHC.CARE ---
pt cleared by CARE team. Ready to discharge back to community to continue working with current providers
--- NOTE | 2024-04-03 20:25 | PC.NURSE ---
pt denies si/hi per care team pt d/c home sister called and came to pick up driver patient Jennifer.
[2024-04-03 20:27] VITALS: BP 137/81; PULSE 75; RESP 16; TEMP 36.4; O2SAT 96
== END 2024-04-03 20:27 | disposition home or self-care (01) ==
PROVIDERS: Physician Assistant; Emergency Provider Emergency Medicine; PCP Family Medicine
DX: F33.3 Major depressive disorder, recurrent, severe with psychotic symptoms (principal); R45.851 Suicidal ideations; Z79.899 Other long term (current) drug therapy; Z51.81 Encounter for therapeutic drug level monitoring
CPT/HCPCS: 36415; 80048; 80076; 80307; 81001; 83735; 84443; 85025; 87086; 99284; S9485

== ENCOUNTER 2024-04-24 14:39 | Inpatient (IN) | payer OTHER, SELFPAY ==
[2024-04-24 15:01] VITALS: BP 124/88; PULSE 91; RESP 16; TEMP 36.8; O2SAT 96; BMI 21.6
--- NOTE | 2024-04-24 15:01 | ED_ITS ---
HPI - General Adult General Chief complaint: Psychiatric Symptoms Stated complaint: Behavioral Time Seen by Provider: 04/24/24 16:00 Source: patient Mode of arrival: ambulatory Limitations: no limitations History of Present Illness ED Provider: Dr. eJnny Woodard HPI narrative: patient comes to the emergency room complaining of worsening depression for about a month. Patient denies SI or HI but stated that she would like to go to sleep and never wake up again. Patient states that about a month ago her dog got diagnosed with diabetes, and is making her feel sad that she needs to inject the dog every day. According to the patient's nurse, the patient states that she has a visiting nurse that helps her with the medication but it is not very helpful. Patient states that she takes her medication every day but does not know what she takes. Patient states that a few months ago she was hospitalized in inpatient level of care was beneficial for her Related Data Home Medications ?Medication ?Instructions ?Recorded ?Confirmed mirtazapine 30 mg tablet 30 mg PO BEDTIME 04/24/24 04/24/24 Previous Rx's ?Medication ?Instructions ?Recorded benztropine 0.5 mg tablet 0.25 mg (1/2 x 0.5 mg) PO BID 30 12/21/23 days #30 tabs docusate sodium 100 mg capsule 1 cap PO BID 30 days #60 caps 12/21/23 gabapentin 300 mg capsule 600 mg (2 x 300 mg) PO BEDTIME 30 12/21/23 days #60 caps omeprazole 20 mg capsule,delayed 20 mg PO BID 30 days #60 caps 12/21/23 release paliperidone palmitate 234 mg/1.5 234 mg (1.5 mL) IM Q30D 30 days 12/21/23 mL intramuscular syringe (Invega #1.5 mL Sustenna) eszopiclone 3 mg tablet (Lunesta) 3 mg PO BEDTIME #30 tabs 01/02/24 cariprazine 3 mg capsule (Vraylar) 3 mg PO DAILY 30 days #30 caps 01/25/24 Allergies Allergy/AdvReac Type Severity Reaction Status Date / Time bee pollen Allergy Severe Anaphylaxis Verified 04/24/24 15:03 levofloxacin [From Levaquin] Allergy Severe Itching Verified 04/24/24 15:03 enoxaparin [From Lovenox] Allergy Intermediate Rash Verified 04/24/24 15:03 Seasonal Allergies Allergy Mild Runny Nose Verified 04/24/24 15:03 venlafaxine [From Effexor] Allergy Mild Constipatio Verified 04/24/24 15:03 n Penicillins Allergy Unknown Unknown Verified 04/24/24 15:03 Review of Systems 2 Review of Systems: Constitutional : No Weight loss, No Fever, No Chills, No Night Sweats, No Fatigue, No Malaise ENT/Mouth : No Hearing loss, No Ear Pain, No Nasal Congestion, No Sinus Pain, No Hoarseness, No sore throat, No Rhinorrhea, No Swallowing Difficulty Eyes: No Eye Pain, No Swelling, No Redness, No Foreign Body, No Discharge, No Vision Changes Cardiovascular : No Chest Pain, No SOB, No Dyspnea on Exertion, No Orthopnea, No Edema, No Palpitations Respiratory : No Cough, No Sputum, No Wheezing, No Smoke Exposure, No Dyspnea Gastrointestinal : No Nausea, No Vomiting, No Diarrhea, No Constipation, No abdominal Pain, No Hematochezia, No Melena Genitourinary : no irregular bleeding, No Dysuria, No Urinary Frequency, No Hematuria, No Urinary Incontinence, No Urgency, No Flank Pain, No Urinary Flow Changes, No Hesitancy Musculoskeletal : No joint pain, No Myalgias, No Joint Swelling Skin : No Skin Lesions, No rash Neuro : No Weakness, No Numbness, No Paresthesias, No Loss of Consciousness, No Dizziness, No Headache Psych : No Anxiety/Panic, complaining of depression, states she does not want to wake up again. Denies any plans for SI or HI Heme/Lymph: No Bruising, No Bleeding,No Lymphadenopathy Endocrine : No Polyuria, No Polydipsia, No Temperature Intolerance PMFSH Past Medical History Medical History History of skin cancer Hx of bladder problems VITO (generalized anxiety disorder) Murmur, cardiac Hx of thyroid nodule Osteopenia Hx of skin cancer, basal cell Seasonal allergies Insomnia Constipation GERD (gastroesophageal reflux disease) Anxiety History of electroconvulsive therapy Bipolar 1 disorder Surgical History Hx of colonoscopy H/O elbow surgery History of back surgery Family History Family History Mother Basal cell carcinoma (BCC) in situ of skin Osteoporosis Hyperlipidemia Father CAD (coronary artery disease) Alcoholism Sister Osteoporosis Depression Brother Cancer of tongue Cancer of skin Social History Social History Household Members: None Housing: Apartment Are you a primary career services representative to a significant other at home: No Do you presently have visiting nurse or other home services: No Unable to assess alcohol history related to: Unable to respond Comment: 1:1 suoervision Patient Tobacco Use Status: Never used Tobacco Tobacco use type: Cigarette Years Smoked: 30+, now vapes Smoked in Last 30 Days: No e-Cigarette/Vaping Use: Currently Using Second Hand Smoke Exposure: No Use of substances other than those prescribed or required for medical reasons: No Substance Use Type: Crack/Cocaine Advance Directives: No Advance Directives Information Provided: Yes service: No Current occupational status: unemployed and retired 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 Sexual orientation: Straight/Heterosexual Physical Exam ED Vital Signs: Vital Signs - 24 hr 04/24/24 15:01 04/24/24 20:23 04/25/24 10:00 Temperature 98.3 F 98.1 F 98.2 F Pulse Rate 91 86 80 Respiratory Rate 16 17 16 Blood Pressure 124/88 117/81 128/73 Pulse Oximetry 96 95 95 Oxygen Delivery Method Room Air Room Air Room Air BMI result Body Mass Index 21.6 Const Other: Appearance: Alert. Oriented X3. No acute distress. Eyes: Pupils equal, round and reactive to light. ENT: Pharynx normal. Neck: Normal inspection. Neck supple. No lymph nodes noted. No crepitus CVS: Normal heart rate and rhythm. Pulses normal. Normal S1 and S2 Respiratory: No respiratory distress. Breath sounds normal. No Wheezing. No rales Abdomen: Soft and nontender. No rigidity. No distention. Skin: Skin warm and dry. Normal skin color. Normal skin turgor. Extremities: No lower extremity edema. No Lacerations. No Rash Neuro: Oriented X 3. No motor deficit. No sensory deficit. Moving all extremities. No slurred speech. CN 2 through 12 grossly intact Psych: calm, cooperative, normal affect Course Course Course Narrative: RME, this is a rapid medical exam performed by Sharad Sloan please refer to primary provider for complete H&P- 68 year old female presents for evaluation of depression with passive suicidal ideation. She does not wish to harm, herself, but would like to go to sleep and not wake up. She has been following outpatient with [facility] but per her brother has not had any improvement. She has been severely depressed for months and not getting out of bed. Plan for medical clearance and care team evaluation Medications Administered Generic Name Dose Route Start Last Admin Trade Name Freq PRN Reason Stop Dose Admin Benztropine Mesylate 0.25 mg 04/24/24 21:00 04/25/24 08:43 Benztropine Mesylate 0.5 Mg Tablet PO 0.25 mg BID GRECIA Administration Cariprazine 3 mg 04/25/24 09:00 04/25/24 08:43 Cariprazine Hcl 3 Mg Capsule PO 3 mg DAILY GRECIA Administration Docusate Sodium 100 mg 04/24/24 21:00 04/25/24 08:44 Docusate Sodium 100 Mg Capsule PO 100 mg BID GRECIA Administration Gabapentin 600 mg 04/24/24 21:00 04/24/24 20:18 Gabapentin 300 Mg Capsule PO 600 mg BEDTIME GRECIA Administration Mirtazapine 30 mg 04/24/24 21:00 04/24/24 20:18 Mirtazapine 30 Mg Tablet PO 30 mg BEDTIME GRECIA Administration Omeprazole 20 mg 04/24/24 21:00 04/25/24 08:43 Omeprazole 20 Mg Capsule. PO 20 mg BID GRECIA Administration Discontinued Medications Generic Name Dose Route Start Last Admin Trade Name Freq PRN Reason Stop Dose Admin Zolpidem Tartrate 5 mg 04/24/24 20:09 04/24/24 20:18 Zolpidem Tartrate 5 Mg Tablet PO 04/24/24 20:10 5 mg ONCE ONE Administration Medical Decision Making Medical Decision Making MDM Narrative: - all of patient's labs pending - care team consult pending - patient is here voluntarily, denies SI or HI, section 12 is not indicated at this time - physician observation started at 16:20 04/25/2024 at 11:32 hours,Dr. South Mejia's note: End physician observation on 04/24/2024 at 11:33 hours 68-year-old female who presents emergency department for evaluation of increased depression over 1 month. Patient was on a Section 12. Patient was seen by the care team and has been accepted on to the geriatric psychiatric unit for further treatment. Observation care revealed the the patient does meet medical necessity for hospitalization. Exam at time of disposition revealed the patient was awake, alert , oriented to person place, was not in any distress. ? Final disposition discussed with the patient by care team. Patient started observation time on 04/24/2024 at 16:21 hours Patient completed observation care on 04/24/2024 11:33 hours Total time spent in observation care was 30 hours and 12 minutes. Differential Diagnosis Differential Diagnoses: The differential diagnosis associated with the presentation includes ( anxiety, depression, bipolar disorder) Lab Data 04/24/24 16:11 04/24/24 16:11 Labs: Lab Results 04/24/24 04/24/24 Range/Units 16:11 19:56 WBC 5.8 (4.8-10.8) X10*3/uL RBC 4.34 (4.20-5.50) X10*6/uL Hgb 13.2 (12.0-16.0) g/dl Hct 37.6 (37.0-47.0) % MCV 86.6 (80.0-98.0) fL MCH 30.4 (27.0-33.0) pg MCHC 35.1 H (31.0-35.0) g/dl RDW 13.1 (11.0-16.0) % Plt Count 210 (160-400) X10*3/uL MPV 8.3 L (9.4-12.3) fL Immature Gran % (Auto) 0.3 (0.0-0.4) % Neut % (Auto) 57.0 (45-73) % Lymph % (Auto) 32.2 (20-40) % [place] % (Auto) 9.0 (2-11) % Eos % (Auto) 1.0 (0-4) % Baso % (Auto) 0.5 (0-2) % Lymph # (Auto) 1.9 (1.2-4.9) X10*3/uL [place] # (Auto) 0.5 (0.1-1.2) X10*3/uL Eos # (Auto) 0.1 (0.0-0.4) X10*3/uL Baso # (Auto) 0.0 (0.0-0.2) X10*3/uL Abs Immat Gran (auto) 0.02 (0.00-0.03) X10*3/uL Absolute Neuts (auto) 3.3 (2.0-8.3) x10*3/uL Absolute Nucleated RBC 0.000 (0.0-0.012) X10*3/uL Nucleated RBC % (auto) 0.0 (0.0-0.2) /100WBC Sodium 139 (135-145) mmol/L Potassium 4.0 (3.3-5.1) mmol/L Chloride 106 (96-108) mmol/L Carbon Dioxide 26 (22-29) mmol/L Anion Gap 11 L (12-20) BUN 15 (9-16) mg/dL Creatinine 0.81 (0.5-1.4) mg/dL Estim Creat Clear Calc 66.4 Estimated GFR > 60 Random Glucose 101 (60-115) mg/dL Calcium 9.6 (8.4-10.2) mg/dL Total Bilirubin 0.2 (0.0-1.0) mg/dL AST 21 (5-31) U/L ALT 11 (0-31) U/L Alkaline Phosphatase 91 (39-117) U/L Total Protein 6.8 (6.5-8.0) g/dL Albumin 4.1 (3.5-5.0) g/dL Urine Color Yellow Urine Appearance Clear Urine pH 6.5 (5.0-9.0) Ur Specific Lillian 1.020 (1.005-1.025) Urine Protein Negative (Neg-Trace) mg/dL Urine Glucose (UA) Negative (Negative) mg/dL Urine Ketones Negative (Negative) mg/dL Urine Blood Negative (Negative) Urine Nitrite Negative (Negative) Ur Leukocyte Esterase Small (1+) H (Negative) Urine RBC 0-2 (0-2) /HPF Urine WBC 6-10 H (0-5) /HPF Ur Squamous Epith Cells 0-2 (0-2) /HPF Urine Bacteria None Seen (None Seen) Hyaline Casts 0-2 (0-2) /LPF Salicylates < 5.0 L (15-30) mg/dL Urine Opiates Screen Not Detected (Not Detect) Ur Buprenorphine Scrn Not Detected (Not Detect) ng/mL Ur Oxycodone Screen Not Detected (Not Detect) ng/mL Urine Methadone Screen Not Detected (Not Detect) ng/mL Urine Fentanyl Screen Not Detected (Not Detect) Acetaminophen < 3 (<30) mcg/mL Ur Barbiturates Screen Not Detected (Not Detect) Ur Phencyclidine Scrn Not Detected (Not Detect) Ur Amphetamines Screen Not Detected (Not Detect) U Benzodiazepines Scrn Not Detected (Not Detect) Urine Cocaine Screen Not Detected (Not Detect) U Marijuana (THC) Screen Not Detected (Not Detect) Ethyl Alcohol < 10 mg/dL Discharge Plan Discharge Clinical Impression: Depression Patient Disposition: Still a Patient Prescriptions: No Action eszopiclone [Lunesta] 3 mg tablet 3 mg PO BEDTIME Qty: 30 0RF mirtazapine 30 mg tablet 30 mg PO BEDTIME benztropine 0.5 mg Tablet 0.25 mg PO BID 30 Days Qty: 30 0RF gabapentin 300 mg Capsule 600 mg PO BEDTIME 30 Days Qty: 60 0RF Invega Sustenna 234 mg/1.5 mL Syringe 234 mg IM Q30D 30 Days Qty: 1.5 0RF docusate sodium 100 mg capsule 1 cap PO BID 30 Days Qty: 60 0RF omeprazole 20 mg capsule,delayed release(DR/EC) 20 mg PO BID 30 Days Qty: 60 0RF Vraylar 3 mg Capsule 3 mg PO DAILY 30 Days Qty: 30 0RF Interventions: Ida-Suicide Risk Severity Scale Last Done: 04/24/24 15:04 Print Language: Occitan
[2024-04-24 16:21] LABS: MANUAL DIFF FLAG NO
[2024-04-24 16:23] LABS: Basophils Percent Auto 0.5 % (0-2); Eosinophils Absolute Auto 0.1 X10*3/uL (0.0-0.4); Hematocrit 37.6 % (37.0-47.0); Hemoglobin 13.2 g/dl (12.0-16.0); Imm Gran Abs Auto 0.02 X10*3/uL (0.00-0.03); Imm Gran Pct Auto 0.3 % (0.0-0.4); Lymphocytes Absolute Auto 1.9 X10*3/uL (1.2-4.9); Lymphocytes Percent Auto 32.2 % (20-40); Mean Corpuscular HGB Conc 35.1 g/dl (31.0-35.0); Mean Corpuscular Hemoglobin 30.4 pg (27.0-33.0); Mean Corpuscular Volume 86.6 fL (80.0-98.0); Mean Platelet Volume 8.3 fL (9.4-12.3); Monocytes Absolute Auto 0.5 X10*3/uL (0.1-1.2); Neutrophils Absolute Auto 3.3 x10*3/uL (2.0-8.3); Platelet Count 210 X10*3/uL (160-400); Red Blood Count 4.34 X10*6/uL (4.20-5.50); Red Cell Distribution Width 13.1 % (11.0-16.0); White Blood Count 5.8 X10*3/uL (4.8-10.8)
--- NOTE | 2024-04-24 16:34 | PC.NURSE ---
med rec complete with pharmacy fill records and confirmation with pt. Pt sates that her Mirtazipine dose was recently increased to 30mg which is confirmed with the pharmacy fill. Pts last invega injection was on 03/28
[2024-04-24 16:40] LABS: Alanine Aminotransferase 11 U/L (0-31); Albumin Level 4.1 g/dL (3.5-5.0); Alkaline Phosphatase 91 U/L (39-117); Anion Gap 11 (12-20); Aspartate Amino Transferase 21 U/L (5-31); Bilirubin Total 0.2 mg/dL (0.0-1.0); Blood Urea Nitrogen 15 mg/dL (9-16); Calcium 9.6 mg/dL (8.4-10.2); Carbon Dioxide 26 mmol/L (22-29); Chloride 106 mmol/L (96-108); Creatinine Clr Calc Pharmacy 66.4; Estimated Glomerular Filt Rate > 60; Ethanol < 10 mg/dL; Glucose Random 101 mg/dL (60-115); Sodium 139 mmol/L (135-145); Total Protein 6.8 g/dL (6.5-8.0)
[2024-04-24 16:44] LABS: Acetaminophen LAB < 3 mcg/mL (<30); Salicylate < 5.0 mg/dL (15-30)
[2024-04-24 20:07] LABS: Appearance Urine Clear; Color Urine Yellow; Glucose Urine UA Negative (Negative); Leukocyte Esterase Urine Small (1+) (Negative); Nitrite Urine Negative (Negative); PH 6.5 (5.0-9.0); UMIC TRIGGER UA YES; Urine Blood Negative (Negative); Urine Ketones Negative (Negative); Urine Protein Negative (Neg-Trace)
[2024-04-24] MEDS: Benztropine Mesylate 0.5 MG TABLET 0.25 MG PO (20:18)
[2024-04-24] MEDS: Zolpidem Tartrate 5 MG TABLET PO (20:18)
[2024-04-24] MEDS: Omeprazole 20 MG CAPSULE.DR PO (20:18)
[2024-04-24] MEDS: Mirtazapine 30 MG TABLET PO (20:18)
[2024-04-24] MEDS: Docusate Sodium 100 MG CAPSULE PO (20:18)
[2024-04-24] MEDS: Gabapentin 300 MG CAPSULE 600 MG PO (20:18)
[2024-04-24 20:22] LABS: Amphetamine Screen Urine Not Detected (Not Detect); Barbiturates, Urine Not Detected (Not Detect); Benzodiazepines Screen Urine Not Detected (Not Detect); Buprenorphine Scr Not Detected (Not Detect); Cannabinoid Screen Urine Not Detected (Not Detect); Cocaine Screen Urine Not Detected (Not Detect); Fentanyl, urine Not Detected (Not Detect); Methadone Screen, Urine Not Detected (Not Detect); Opiate Screen Urine Not Detected (Not Detect); Oxycodone Screen Urine Not Detected (Not Detect); Phencyclidine Screen Urine Not Detected (Not Detect)
[2024-04-24 20:23] VITALS: BP 117/81; PULSE 86; RESP 17; TEMP 36.7; O2SAT 95
[2024-04-24 20:25] LABS: Bacteria Urine None Seen (None Seen); Hyaline Casts Urine 0-2 /LPF (0-2); RBC Urine 0-2 /HPF (0-2); Squamous Epithelial Cell Urine 0-2 /HPF (0-2)
--- NOTE | 2024-04-24 23:08 | MHC.CARE ---
Pt evaluated by the CARE Team and is a bedsearch. ED provider and POD RN aware. On a section 12A for safety. [facility] was faxed notice of admit and evaluation.
--- NOTE | 2024-04-25 | ECG_ITS ---
Test Reason : QTC Blood Pressure : / mmHG Vent. Rate : 070 BPM Atrial Rate : 070 BPM P-R Int : 140 ms QRS Dur : 072 ms QT Int : 408 ms P-R-T Axes : 010 051 039 degrees QTc Int : 440 ms Normal sinus rhythm Normal ECG When compared with ECG of 13-JAN-2024 11:11, No significant change was found Referred By: Jenny Woodard Electronically Signed By:Arturo Tomlinson
--- NOTE | 2024-04-25 05:22 | PC.NURSE ---
Patient slept through the night, no distress observed/reported, compliant with meds, disposition per care team is section 12 inpatient bed search, will continue to monitor
[2024-04-25] MEDS: Omeprazole 20 MG CAPSULE.DR PO ×2 (08:43→21:08)
[2024-04-25] MEDS: Cariprazine HCl 3 MG CAPSULE PO (08:43)
[2024-04-25] MEDS: Benztropine Mesylate 0.5 MG TABLET 0.25 MG PO ×2 (08:43→21:08)
[2024-04-25] MEDS: Docusate Sodium 100 MG CAPSULE PO ×2 (08:44→21:08)
[2024-04-25 10:00] VITALS: BP 128/73; PULSE 80; RESP 16; TEMP 36.8; O2SAT 95
--- NOTE | 2024-04-25 11:33 | PC.NURSE ---
RN-to-RN report given to TAURUS Lebron. Pt. is going to S1 room 181, bed 1.
--- NOTE | 2024-04-25 12:13 | PHA.MEDREC ---
Addendum entered by Claire Jones RPh 04/25/24 12:17: Reviewed by [facility]. Original Note: Pharmacy Consult ? Medication Reconciliation Pharmacy reviewed Med Rec done by nursing. Everything on list matched claims. Vitamin B-1 100mg 1 BID was not accounted for and that was filled 04/19/24 for a 90 day supply, I called the ED and they spoke withthe patient and she confirmed she is still taking it.
[2024-04-25 13:02] VITALS: BP 119/81; PULSE 91; RESP 18; TEMP 36.3; O2SAT 98
[2024-04-25 13:03] VITALS: BMI 21.5
--- NOTE | 2024-04-25 15:07 | PC.ADMIT ---
Steffi Robertson was admitted to unit [id number] from [facility], for treatment of Bipolar disorder unspecified. Per assessment Steffi was assessed by the care team at [facility] after being dropped off by her brother due to concerns of increased depression for a month. Per Steffi she reported inability to cope after her dog was diagnosed with diabetes a month ago. Upon approach Steffi is A&O X4, She appears depressed and anxious when asked how she felt stated Not that good. She then stated Nothing is going to help, She appears sad, hopeless,withdrawn stated My dog has diabetes, she reports her dog is a happy dog. Staff support offered, responded well to staff support. Steffi reports endorsing depression, she denied feeling anxious. When asked if she had any thoughts of wanting to hurt self or others stated No verbalized to look for staff if thoughts occur. Steffi reports poor sleep and appetite. She is currently on five minutes check.
--- NOTE | 2024-04-25 16:03 | P.HPPS_ITS ---
HPI Date of Service: 04/25/24 Chief Complaint: SI Sources of Information: patient interviewed, chart reviewed and crisis/core team assessment reviewed HPI Subjective Notes: Gambino Warning and Conditional Voluntary Narrative: Pt is a 68 yo female with hx of bipolar/bipolar depression, hx of ECT who presents for worsening depression. Pt says she was doing well following ECT, on medications. Last month her dog got diabetes and pt had to give dog insulin 2x a day; she started realizing her dog would eventually and depression set in. She stopped going out, stopped exercising (normally goes to gym 3x week), not eating, hard to sleep, not bathing or attending ADL's; Vraylar was increased but to no effect so lowered back to 3 mg. Pt started wishing she were , no wanting to live any more, though no intent or plan. Her brother insisted she come to hospital Past Psychiatric History: -Psych provider is [facility] in [place] -Per sister, pt has had depression since her early 20s and has suffered from unspecified chronic pain, surgeries. -Hx of multiple psych admissions to [facility] Medical Evaluation Reviewed: Yes [facility] Medical History History of skin cancer Hx of bladder problems VITO (generalized anxiety disorder) Murmur, cardiac Hx of thyroid nodule Osteopenia Hx of skin cancer, basal cell Seasonal allergies Insomnia Constipation GERD (gastroesophageal reflux disease) Anxiety History of electroconvulsive therapy Bipolar 1 disorder Surgical History Hx of colonoscopy H/O elbow surgery History of back surgery Family History: -Depression. In 1998 her great grandfather hung himself. Social History: -Pt has never been , no children. One dog -Pt's mother (age 88), sister, and brother are involved with pt's care. -She graduated h.s. And has bachelors in psychology. She worked at [facility]. Substance History: deferred Trauma History: deferred Diagnostics Vital Signs (24Hr): Vital Signs - 24 hr 04/24/24 20:23 04/25/24 10:00 04/25/24 13:02 Temperature 98.1 F 98.2 F 97.3 F Pulse Rate 86 80 91 Respiratory Rate 17 16 18 Blood Pressure 117/81 128/73 119/81 Pulse Oximetry 95 95 98 Oxygen Delivery Method Room Air Room Air Room Air BMI result Body Mass Index 21.5 Labs 04/24/24 16:11 04/26/24 07:26 Labs: Laboratory Results - last 48 hr 04/24/24 04/24/24 16:11 19:56 WBC 5.8 RBC 4.34 Hgb 13.2 Hct 37.6 MCV 86.6 MCH 30.4 MCHC 35.1 H RDW 13.1 Plt Count 210 MPV 8.3 L Immature Gran % (Auto) 0.3 Neut % (Auto) 57.0 Lymph % (Auto) 32.2 [place] % (Auto) 9.0 Eos % (Auto) 1.0 Baso % (Auto) 0.5 Lymph # (Auto) 1.9 [place] # (Auto) 0.5 Eos # (Auto) 0.1 Baso # (Auto) 0.0 Abs Immat Gran (auto) 0.02 Absolute Neuts (auto) 3.3 Absolute Nucleated RBC 0.000 Nucleated RBC % (auto) 0.0 Sodium 139 Potassium 4.0 Chloride 106 Carbon Dioxide 26 Anion Gap 11 L BUN 15 Creatinine 0.81 Estim Creat Clear Calc 66.4 Estimated GFR > 60 Random Glucose 101 Calcium 9.6 Total Bilirubin 0.2 AST 21 ALT 11 Alkaline Phosphatase 91 Total Protein 6.8 Albumin 4.1 Urine Color Yellow Urine Appearance Clear Urine pH 6.5 Ur Specific [place] 1.020 Urine Protein Negative Urine Glucose (UA) Negative Urine Ketones Negative Urine Blood Negative Urine Nitrite Negative Ur Leukocyte Esterase Small (1+) H Urine RBC 0-2 Urine WBC 6-10 H Ur Squamous Epith Cells 0-2 Urine Bacteria None Seen Hyaline Casts 0-2 Salicylates < 5.0 L Urine Opiates Screen Not Detected Ur Buprenorphine Scrn Not Detected Ur Oxycodone Screen Not Detected Urine Methadone Screen Not Detected Urine Fentanyl Screen Not Detected Acetaminophen < 3 Ur Barbiturates Screen Not Detected Ur Phencyclidine Scrn Not Detected Ur Amphetamines Screen Not Detected U Benzodiazepines Scrn Not Detected Urine Cocaine Screen Not Detected U Marijuana (THC) Screen Not Detected Ethyl Alcohol < 10 Meds/Allergies Meds Home Medications ?Medication ?Instructions ?Recorded ?Confirmed ?Type mirtazapine 30 mg tablet 30 mg PO BEDTIME 04/24/24 04/24/24 History omeprazole 20 mg capsule,delayed 20 mg PO DAILY@0630 04/25/24 04/25/24 History release thiamine HCl (vitamin B1) 100 mg 100 mg PO BID 04/25/24 04/25/24 History tablet (Vitamin B-1) Allergies Allergies Allergy/AdvReac Type Severity Reaction Status Date / Time bee pollen Allergy Severe Anaphylaxis Verified 04/24/24 15:03 levofloxacin [From Levaquin] Allergy Severe Itching Verified 04/24/24 15:03 enoxaparin [From Lovenox] Allergy Intermediate Rash Verified 04/24/24 15:03 Seasonal Allergies Allergy Mild Runny Nose Verified 04/24/24 15:03 venlafaxine [From Effexor] Allergy Mild Constipatio Verified 04/24/24 15:03 n Penicillins Allergy Unknown Unknown Verified 04/24/24 15:03 Mental Status Exam Mental Status Exam Narrative: Pt is alert and oriented; behavior is cooperative, quiet, calm, isolate; patient is not in distress; dressed in hospital attire with unkempt hair; mood is described as depressed and affect congruent, downcast; eye contact appropriate; Speech is slowed, soft, monotone; psychomotor retardation present; thought process is organized and goal directed; Thought content is on hopelessness, likely not get better, passive SI; otherwise pertinent to relevant topics and without any delusional content, paranoid ideations or grandiosity; passive SI; no intention/plans; no HI; There is no evidence of perceptual disturbance. Patients insight and judgment impaired. Assessment & Plan Assessment & Plan (1) Bipolar 1 disorder, depressed, severe: Status: Acute Code(s): F31.4 - Bipolar disorder, current episode depressed, severe, without psychotic features Plan Pt is a 68 yo female with hx of bipolar/bipolar depression, hx of ECT who presents for worsening depression. Pt says she was doing well following ECT, on medications. Last month her dog got diabetes and pt had to give dog insulin 2x a day; she started realizing her dog would eventually and depression set in. She stopped going out, stopped exercising (normally goes to gym 3x week), not eating, hard to sleep, not bathing or attending ADL's; Vraylar was increased but to no effect so lowered back to 3 mg. Pt started wishing she were , no wanting to live any more, though no intent or plan. Her brother insisted she come to hospital -continue home meds; strongly consider switching to Latuda (and discontinuing Vraylar); discussed ECT which has worked in past and is an option Plan: CV [id number] continue home meds Hospitalist for ECT clearance Patient educated on: diagnosis, medication risk/benefits and ECT Informed Consent: understands Reason for continued inpatient stay Substantial Risk for: inability to function and rapid decompensation Statement Statement: I have reviewed the history and physical and performed a pertinent examination on my patient. No changes have occurred unless specified. If the History and Physical was not performed prior to admission, the Hospitalist's service will be consulted for completing the admission physical. Time Spent With Patient Time: Total time managing care of this patient today ____ minutes.
[2024-04-25 20:00] VITALS: BP 116/75; PULSE 90; RESP 16; TEMP 36.6; O2SAT 97
[2024-04-25] MEDS: Mirtazapine 30 MG TABLET PO (21:08)
[2024-04-25] MEDS: Gabapentin 300 MG CAPSULE 600 MG PO (21:09)
[2024-04-25] MEDS: Zolpidem Tartrate 5 MG TABLET PO (21:30)
[2024-04-26 08:00] VITALS: BP 119/72; PULSE 88; RESP 16; TEMP 36.3; O2SAT 94
[2024-04-26 08:00] LABS: Estimated Average Glucose 117 mg/dL; Hemoglobin A1C 131.8197 umol/L; Hemoglobin A1c % 5.7 % (<6.0); Total Hemoglobin (HGBA1C) 3441.9033 umol/L
[2024-04-26 08:17] LABS: Alanine Aminotransferase 12 U/L (0-31); Alkaline Phosphatase 90 U/L (39-117); Anion Gap 11 (12-20); Aspartate Amino Transferase 18 U/L (5-31); Bilirubin Total 0.3 mg/dL (0.0-1.0); Blood Urea Nitrogen 21 mg/dL (9-16); Calcium 9.7 mg/dL (8.4-10.2); Carbon Dioxide 25 mmol/L (22-29); Chloride 107 mmol/L (96-108); Cholesterol 232 mg/dL (<200); Creatinine Clr Calc Pharmacy 68.1; Estimated Glomerular Filt Rate > 60; Glucose Fasting 102 mg/dL (60-99); HDL Cholesterol 59 mg/dL (>40); LDL Cholesterol Calculated 157 mg/dL (<100); Potassium 4.2 mmol/L (3.3-5.1); Sodium 139 mmol/L (135-145); Total Protein 6.7 g/dL (6.5-8.0); Triglycerides 83 mg/dL (<150)
[2024-04-26 08:33] LABS: Thyroid Stimulating Hormone 0.43 uIU/mL (0.32-4.0)
[2024-04-26 08:41] LABS: Vitamin B12 383 pg/mL (200-900)
[2024-04-26] MEDS: Cariprazine HCl 3 MG CAPSULE PO (09:44)
[2024-04-26] MEDS: Omeprazole 20 MG CAPSULE.DR PO ×2 (09:45→20:19)
[2024-04-26] MEDS: Benztropine Mesylate 0.5 MG TABLET 0.25 MG PO ×2 (09:45→20:18)
[2024-04-26] MEDS: Docusate Sodium 100 MG CAPSULE PO ×2 (09:45→20:19)
[2024-04-26 20:00] VITALS: BP 140/81; PULSE 87; RESP 16; TEMP 36.3; O2SAT 97
--- NOTE | 2024-04-26 20:09 | HO.PSYCHPN ---
Subjective Subjective Date of Service: 04/26/24 Reason For Visit: SI Subjective Notes: Conditional Voluntary Interim History: Pt slept all night. She continues to report feeling very depressed, no plan or intent to harm self but feels like nothing will help. pending ECT clearance. Review of Systems Review of Systems Constitutional : No Weight loss, No Fever, No Chills, No Night Sweats, No Fatigue, No Malaise ENT/Mouth : No Hearing loss, No Ear Pain, No Nasal Congestion, No Sinus Pain, No Hoarseness, No sore throat, No Rhinorrhea, No Swallowing Difficulty Eyes: No Eye Pain, No Swelling, No Redness, No Foreign Body, No Discharge, No Vision Changes Cardiovascular : No Chest Pain, No SOB, No Dyspnea on Exertion, No Orthopnea, No Edema, No Palpitations Respiratory : No Cough, No Sputum, No Wheezing, No Smoke Exposure, No Dyspnea Gastrointestinal : No Nausea, No Vomiting, No Diarrhea, No Constipation, No abdominal Pain, No Hematochezia, No Melena Genitourinary : no irregular bleeding, No Dysuria, No Urinary Frequency, No Hematuria, No Urinary Incontinence, No Urgency, No Flank Pain, No Urinary Flow Changes, No Hesitancy Musculoskeletal : No joint pain, No Myalgias, No Joint Swelling Skin : No Skin Lesions, No rash Neuro : No Weakness, No Numbness, No Paresthesias, No Loss of Consciousness, No Dizziness, No Headache Psych : No Anxiety/Panic, complaining of depression, states she does not want to wake up again. Denies any plans for SI or HI Heme/Lymph: No Bruising, No Bleeding,No Lymphadenopathy Endocrine : No Polyuria, No Polydipsia, No Temperature Intolerance Constitutional: Denies chills, Denies fatigue, Denies fever(s) and Denies headache(s) Eyes: Denies change in vision Denies dizziness, Denies headache(s), Denies nasal congestion and Denies nasal discharge Cardiovascular: Denies chest pain, Denies lightheadedness and Denies dyspnea Respiratory: Denies cough and Denies dyspnea Gastrointestinal: Denies constipation, Denies diarrhea, Denies nausea and Denies vomiting Musculoskeletal: Denies arthralgias and Denies muscle weakness Skin/Breast: Denies rash Denies confusion, Denies dizziness and Denies headache(s) Psychiatric: Reports as per HPI and Denies confusion Endocrine: Denies fatigue Hematologic/Lymphatic: Denies easy bleeding and Denies easy bruising Allergic/Immunologic: Denies urticaria Mental Status Exam Mental Status Exam Narrative: Pt is alert and oriented; behavior is cooperative, quiet, calm, isolate; patient is not in distress; dressed in hospital attire with unkempt hair; mood is described as depressed and affect congruent, downcast; eye contact appropriate; Speech is slowed, soft, monotone; psychomotor retardation present; thought process is organized and goal directed; Thought content is on hopelessness, likely not get better, passive SI; otherwise pertinent to relevant topics and without any delusional content, paranoid ideations or grandiosity; passive SI; no intention/plans; no HI; There is no evidence of perceptual disturbance. Patients insight and judgment impaired. Diagnostics Vital Signs (24Hr): Vital Signs - 24 hr 04/26/24 08:00 Temperature 97.3 F Pulse Rate 88 Respiratory Rate 16 Blood Pressure 119/72 Pulse Oximetry 94 Oxygen Delivery Method Room Air BMI result Body Mass Index 21.5 Labs 04/24/24 16:11 04/26/24 07:26 Labs: Laboratory Results - last 48 hr 04/24/24 04/26/24 19:56 07:26 Sodium 139 Potassium 4.2 Chloride 107 Carbon Dioxide 25 Anion Gap 11 L BUN 21 H Creatinine 0.79 Estim Creat Clear Calc 68.1 Estimated GFR > 60 Fasting Glucose 102 H Estimat Average Glucose 117 Hemoglobin A1c % 5.7 Calcium 9.7 Total Bilirubin 0.3 AST 18 ALT 12 Alkaline Phosphatase 90 Total Protein 6.7 Albumin 4.0 Triglycerides 83 Cholesterol 232 H LDL Cholesterol, Calc 157 H HDL Cholesterol 59 Vitamin B12 383 TSH 0.43 Urine Color Yellow Urine Appearance Clear Urine pH 6.5 Ur Specific [place] 1.020 Urine Protein Negative Urine Glucose (UA) Negative Urine Ketones Negative Urine Blood Negative Urine Nitrite Negative Ur Leukocyte Esterase Small (1+) H Urine RBC 0-2 Urine WBC 6-10 H Ur Squamous Epith Cells 0-2 Urine Bacteria None Seen Hyaline Casts 0-2 Urine Opiates Screen Not Detected Ur Buprenorphine Scrn Not Detected Ur Oxycodone Screen Not Detected Urine Methadone Screen Not Detected Urine Fentanyl Screen Not Detected Ur Barbiturates Screen Not Detected Ur Phencyclidine Scrn Not Detected Ur Amphetamines Screen Not Detected U Benzodiazepines Scrn Not Detected Urine Cocaine Screen Not Detected U Marijuana (THC) Screen Not Detected Medications Medications Current Medications Acetaminophen (Acetaminophen 325 Mg Tablet) 650 mg PO Q6H PRN PRN Reason: Headache/Pain Mild Scale (1-3) Al Hydroxide/Mg Hydroxide (Magnesium Hydrox/Alum Hydrox 30 Ml Oral.Susp) 30 ml PO Q6H PRN PRN Reason: Heartburn/Nausea Benztropine Mesylate (Benztropine Mesylate 0.5 Mg Tablet) 0.25 mg PO BID [facility] Last Admin: 04/26/24 09:45 Dose: 0.25 mg Cariprazine (Cariprazine Hcl 3 Mg Capsule) 3 mg PO DAILY [facility] Last Admin: 04/26/24 09:44 Dose: 3 mg Docusate Sodium (Docusate Sodium 100 Mg Capsule) 100 mg PO BID [facility] Last Admin: 04/26/24 09:45 Dose: 100 mg Gabapentin (Gabapentin 300 Mg Capsule) 600 mg PO BEDTIME [facility] Last Admin: 04/25/24 21:09 Dose: 600 mg Hydroxyzine HCl (Hydroxyzine Hcl 25 Mg Tablet) 25 mg PO Q6H PRN PRN Reason: Anxiety Magnesium Hydroxide (Milk Of Magnesia 30 Ml Oral.Susp) 30 ml PO DAILY PRN PRN Reason: Constipation Mirtazapine (Mirtazapine 30 Mg Tablet) 30 mg PO BEDTIME [facility] Last Admin: 04/25/24 21:08 Dose: 30 mg Non-Formulary Medication (Eszopiclone [Lunesta]) 3 mg PO BEDTIME [facility] Omeprazole (Omeprazole 20 Mg Capsule.Dr) 20 mg PO BID [facility] Last Admin: 04/26/24 09:45 Dose: 20 mg Trazodone HCl (Trazodone Hcl 50 Mg Tablet) 50 mg PO BEDTIME MRX1 PRN PRN Reason: Insomnia Zolpidem Tartrate (Zolpidem Tartrate 5 Mg Tablet) 5 mg PO BEDTIME [facility] Last Admin: 04/25/24 21:30 Dose: 5 mg Allergies Allergies Allergy/AdvReac Type Severity Reaction Status Date / Time bee pollen Allergy Severe Anaphylaxis Verified 04/24/24 15:03 levofloxacin [From Levaquin] Allergy Severe Itching Verified 04/24/24 15:03 enoxaparin [From Lovenox] Allergy Intermediate Rash Verified 04/24/24 15:03 Seasonal Allergies Allergy Mild Runny Nose Verified 04/24/24 15:03 venlafaxine [From Effexor] Allergy Mild Constipatio Verified 04/24/24 15:03 n Penicillins Allergy Unknown Unknown Verified 04/24/24 15:03 Assessment & Plan Assessment & Plan (1) Bipolar 1 disorder, depressed, severe: Status: Acute Code(s): F31.4 - Bipolar disorder, current episode depressed, severe, without psychotic features Plan continue current plan Reason for continued inpatient stay Substantial Risk for: inability to function Time Spent With Patient Time: Total time managing care of this patient today ____ minutes.
[2024-04-26] MEDS: Gabapentin 300 MG CAPSULE 600 MG PO (20:18)
[2024-04-26] MEDS: Zolpidem Tartrate 5 MG TABLET PO (20:19)
[2024-04-26] MEDS: Mirtazapine 30 MG TABLET PO (20:20)
[2024-04-27] MEDS: hydrOXYzine HCL 25 MG TABLET PO ×2 (00:26→20:37)
[2024-04-27] MEDS: traZODone HCL 50 MG TABLET PO ×2 (00:27→20:38)
[2024-04-27 08:41] VITALS: BP 112/71; PULSE 93; RESP 16; TEMP 36.6; O2SAT 97
[2024-04-27] MEDS: Cariprazine HCl 3 MG CAPSULE PO (08:42)
[2024-04-27] MEDS: Docusate Sodium 100 MG CAPSULE PO ×2 (08:42→20:39)
[2024-04-27] MEDS: Omeprazole 20 MG CAPSULE.DR PO ×2 (08:42→20:37)
[2024-04-27] MEDS: Benztropine Mesylate 0.5 MG TABLET 0.25 MG PO ×2 (08:43→20:38)
--- NOTE | 2024-04-27 16:00 | HO.PSYCHPN ---
Subjective Subjective Date of Service: 04/27/24 Reason For Visit: SI Subjective Notes: Conditional Voluntary Interim History: Pt slept most of the night. She continues to present as hopeless, does not think anything or anyone can help her. ruminative about her dog having DM. No behavioral concerns. No plan or intent to harm self. Review of Systems Review of Systems Constitutional : No Weight loss, No Fever, No Chills, No Night Sweats, No Fatigue, No Malaise ENT/Mouth : No Hearing loss, No Ear Pain, No Nasal Congestion, No Sinus Pain, No Hoarseness, No sore throat, No Rhinorrhea, No Swallowing Difficulty Eyes: No Eye Pain, No Swelling, No Redness, No Foreign Body, No Discharge, No Vision Changes Cardiovascular : No Chest Pain, No SOB, No Dyspnea on Exertion, No Orthopnea, No Edema, No Palpitations Respiratory : No Cough, No Sputum, No Wheezing, No Smoke Exposure, No Dyspnea Gastrointestinal : No Nausea, No Vomiting, No Diarrhea, No Constipation, No abdominal Pain, No Hematochezia, No Melena Genitourinary : no irregular bleeding, No Dysuria, No Urinary Frequency, No Hematuria, No Urinary Incontinence, No Urgency, No Flank Pain, No Urinary Flow Changes, No Hesitancy Musculoskeletal : No joint pain, No Myalgias, No Joint Swelling Skin : No Skin Lesions, No rash Neuro : No Weakness, No Numbness, No Paresthesias, No Loss of Consciousness, No Dizziness, No Headache Psych : No Anxiety/Panic, complaining of depression, states she does not want to wake up again. Denies any plans for SI or HI Heme/Lymph: No Bruising, No Bleeding,No Lymphadenopathy Endocrine : No Polyuria, No Polydipsia, No Temperature Intolerance Constitutional: Denies chills, Denies fatigue, Denies fever(s) and Denies headache(s) Eyes: Denies change in vision Denies dizziness, Denies headache(s), Denies nasal congestion and Denies nasal discharge Cardiovascular: Denies chest pain, Denies lightheadedness and Denies dyspnea Respiratory: Denies cough and Denies dyspnea Gastrointestinal: Denies constipation, Denies diarrhea, Denies nausea and Denies vomiting Musculoskeletal: Denies arthralgias and Denies muscle weakness Skin/Breast: Denies rash Denies confusion, Denies dizziness and Denies headache(s) Psychiatric: Reports as per HPI and Denies confusion Endocrine: Denies fatigue Hematologic/Lymphatic: Denies easy bleeding and Denies easy bruising Allergic/Immunologic: Denies urticaria Mental Status Exam Mental Status Exam Narrative: Pt is alert and oriented; behavior is cooperative, quiet, calm, isolate; patient is not in distress; dressed in hospital attire with unkempt hair; mood is described as depressed and affect congruent, downcast; eye contact appropriate; Speech is slowed, soft, monotone; psychomotor retardation present; thought process is organized and goal directed; Thought content is on hopelessness, likely not get better, passive SI; otherwise pertinent to relevant topics and without any delusional content, paranoid ideations or grandiosity; passive SI; no intention/plans; no HI; There is no evidence of perceptual disturbance. Patients insight and judgment impaired. Diagnostics Vital Signs (24Hr): Vital Signs - 24 hr 04/26/24 20:00 04/27/24 08:41 Temperature 97.3 F 97.9 F Pulse Rate 87 93 Respiratory Rate 16 16 Blood Pressure 140/81 H 112/71 Pulse Oximetry 97 97 Oxygen Delivery Method Room Air Room Air BMI result Body Mass Index 21.5 Labs 04/24/24 16:11 04/26/24 07:26 Labs: Laboratory Results - last 48 hr 04/26/24 07:26 Sodium 139 Potassium 4.2 Chloride 107 Carbon Dioxide 25 Anion Gap 11 L BUN 21 H Creatinine 0.79 Estim Creat Clear Calc 68.1 Estimated GFR > 60 Fasting Glucose 102 H Estimat Average Glucose 117 Hemoglobin A1c % 5.7 Calcium 9.7 Total Bilirubin 0.3 AST 18 ALT 12 Alkaline Phosphatase 90 Total Protein 6.7 Albumin 4.0 Triglycerides 83 Cholesterol 232 H LDL Cholesterol, Calc 157 H HDL Cholesterol 59 Vitamin B12 383 TSH 0.43 Medications Medications Current Medications Acetaminophen (Acetaminophen 325 Mg Tablet) 650 mg PO Q6H PRN PRN Reason: Headache/Pain Mild Scale (1-3) Al Hydroxide/Mg Hydroxide (Magnesium Hydrox/Alum Hydrox 30 Ml Oral.Susp) 30 ml PO Q6H PRN PRN Reason: Heartburn/Nausea Benztropine Mesylate (Benztropine Mesylate 0.5 Mg Tablet) 0.25 mg PO BID [facility] Last Admin: 04/27/24 08:43 Dose: 0.25 mg Cariprazine (Cariprazine Hcl 3 Mg Capsule) 3 mg PO DAILY [facility] Last Admin: 04/27/24 08:42 Dose: 3 mg Docusate Sodium (Docusate Sodium 100 Mg Capsule) 100 mg PO BID [facility] Last Admin: 04/27/24 08:42 Dose: 100 mg Gabapentin (Gabapentin 300 Mg Capsule) 600 mg PO BEDTIME [facility] Last Admin: 04/26/24 20:18 Dose: 600 mg Hydroxyzine HCl (Hydroxyzine Hcl 25 Mg Tablet) 25 mg PO Q6H PRN PRN Reason: Anxiety Last Admin: 04/27/24 00:26 Dose: 25 mg Magnesium Hydroxide (Milk Of Magnesia 30 Ml Oral.Susp) 30 ml PO DAILY PRN PRN Reason: Constipation Mirtazapine (Mirtazapine 30 Mg Tablet) 30 mg PO BEDTIME [facility] Last Admin: 04/26/24 20:20 Dose: 30 mg Omeprazole (Omeprazole 20 Mg Capsule.Dr) 20 mg PO BID [facility] Last Admin: 04/27/24 08:42 Dose: 20 mg Trazodone HCl (Trazodone Hcl 50 Mg Tablet) 50 mg PO BEDTIME MRX1 PRN PRN Reason: Insomnia Last Admin: 04/27/24 00:27 Dose: 50 mg Zolpidem Tartrate (Zolpidem Tartrate 5 Mg Tablet) 5 mg PO BEDTIME [facility] Last Admin: 04/26/24 20:19 Dose: 5 mg Allergies Allergies Allergy/AdvReac Type Severity Reaction Status Date / Time bee pollen Allergy Severe Anaphylaxis Verified 04/24/24 15:03 levofloxacin [From Levaquin] Allergy Severe Itching Verified 04/24/24 15:03 enoxaparin [From Lovenox] Allergy Intermediate Rash Verified 04/24/24 15:03 Seasonal Allergies Allergy Mild Runny Nose Verified 04/24/24 15:03 venlafaxine [From Effexor] Allergy Mild Constipatio Verified 04/24/24 15:03 n Penicillins Allergy Unknown Unknown Verified 04/24/24 15:03 Assessment & Plan Assessment & Plan (1) Bipolar 1 disorder, depressed, severe: Status: Acute Code(s): F31.4 - Bipolar disorder, current episode depressed, severe, without psychotic features Plan continue tx. pending ECT clearance. Reason for continued inpatient stay Substantial Risk for: inability to function Time Spent With Patient Time: Total time managing care of this patient today ____ minutes.
[2024-04-27 20:00] VITALS: BP 108/58; PULSE 72; RESP 16; TEMP 36.8; O2SAT 96
[2024-04-27] MEDS: Gabapentin 300 MG CAPSULE 600 MG PO (20:37)
[2024-04-27] MEDS: Zolpidem Tartrate 5 MG TABLET PO (20:37)
[2024-04-27] MEDS: Mirtazapine 30 MG TABLET PO (20:38)
[2024-04-28 08:00] VITALS: BP 113/61; PULSE 87; RESP 18; TEMP 36.6; O2SAT 99
[2024-04-28] MEDS: Cariprazine HCl 3 MG CAPSULE PO (09:05)
[2024-04-28] MEDS: Docusate Sodium 100 MG CAPSULE PO ×2 (09:05→21:06)
[2024-04-28] MEDS: Benztropine Mesylate 0.5 MG TABLET 0.25 MG PO ×2 (09:05→21:07)
[2024-04-28] MEDS: Omeprazole 20 MG CAPSULE.DR PO ×2 (09:05→21:08)
--- NOTE | 2024-04-28 09:46 | P.CONHOSP_ITS ---
History of Present Illness Data of Consult Service Date: 04/28/24 Requesting physician: Isaac Garza Primary Care Provider: Theresa Nelson MD HPI Reason for consult: ECT risk stratification Patient is a 68-year-old female with a past medical history significant for bipolar 1, osteoarthritis, GERD, history DVT, cardiac murmur, who was recently admitted to Geriatric psych due to worsening depression for the past month. She denied SI or HI. Hospitalist consult for ECT risk stratification. Patient reports that she had ECT done with us multiple times back in December of this year, which she found to be helpful but she would like to restart. She has no medical history of COPD, asthma, obstructive sleep apnea, DC, CAD, cardiac arrhythmia, TBI, CVA, brain mass, bleeding disorder or any issues with anesthesia in the past. She denies any shortness of breath, chest pain, palpitations, dizziness, fever, chills, nausea, vomiting, abdominal pain, hematemesis, hematochezia or any known bleeding sources. Review of Systems 2 Constitutional: Constitutional: Denies chills, Denies fatigue, Denies fever(s) and Denies headache(s) Eyes: Eyes: Denies change in vision ENT: Denies dizziness, Denies headache(s), Denies nasal congestion and Denies nasal discharge Cardiovascular: Cardiovascular: Denies chest pain, Denies lightheadedness and Denies dyspnea Respiratory: Respiratory: Denies cough and Denies dyspnea Gastrointestinal: Gastrointestinal: Denies constipation, Denies diarrhea, Denies nausea and Denies vomiting Genitourinary: Genitourinary: Denies dysuria Musculoskeletal: Musculoskeletal: Denies arthralgias and Denies muscle weakness Integumentary/Breasts: Skin/Breast: Denies rash Neurologic: Denies confusion, Denies dizziness and Denies headache(s) Psychiatric: Psychiatric: Reports as per HPI and Denies confusion Endocrine: Endocrine: Denies fatigue Hematologic/Lymphatic: Hematologic/Lymphatic: Denies easy bleeding and Denies easy bruising Allergic/Immunologic: Allergic/Immunologic: Denies urticaria PMFSH Medical History History of skin cancer Hx of bladder problems VITO (generalized anxiety disorder) Murmur, cardiac Hx of thyroid nodule Osteopenia Hx of skin cancer, basal cell Seasonal allergies Insomnia Constipation GERD (gastroesophageal reflux disease) Anxiety History of electroconvulsive therapy Bipolar 1 disorder Functional capacity: independent ambulation Family History Mother Basal cell carcinoma (BCC) in situ of skin Osteoporosis Hyperlipidemia Father CAD (coronary artery disease) Alcoholism Sister Osteoporosis Depression Brother Cancer of tongue Cancer of skin Surgical History Hx of colonoscopy H/O elbow surgery History of back surgery Social History Household Members: Other Household Members Other:: Dog. Housing: Apartment Are you a primary director career to a significant other at home: No Do you presently have visiting nurse or other home services: Yes Unable to assess alcohol history related to: Unable to respond Comment: 1:1 suoervision Patient Tobacco Use Status: Never used Tobacco Tobacco use type: Cigarette Years Smoked: 30+, now vapes Smoked in Last 30 Days: Yes e-Cigarette/Vaping Use: Currently Using Frequency of e-Cigarette/Vaping Use: Not a lot. Patient Interested in Nicotine Replacement: No Patient Given Instructions on How to Stop Smoking: No Second Hand Smoke Exposure: No Use of substances other than those prescribed or required for medical reasons: No Substance Use Type: Crack/Cocaine Currently Displaying Signs/Symptoms of Drug Intoxication Withdrawal: No Any prior treatment program specific to substance use: No Have you been hit, kicked, punched, or otherwise hurt by someone within the past year? If so, by whom?: No Do you feel safe in your current relationship?: No Current Relationship Is there a partner from a previous relationship who is making you feel unsafe now?: No Are you made to feel afraid or neglected: No Advance Directives: No Advance Directives Information Provided: No Do you have thoughts of harming others: None Do you have a plan to hurt others: No Plan Recently lost weight without trying: Yes How much weight loss: 2-13 pounds Eating poorly because of decreased appetite: Yes Nutrition screen score: 4 Nutrition Risks: No Nutritional Risk Patient : No : No Poor oral hygiene: No service: No Current occupational status: unemployed and retired 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 Sexual orientation: Straight/Heterosexual Meds Allergies Allergy/AdvReac Type Severity Reaction Status Date / Time bee pollen Allergy Severe Anaphylaxis Verified 04/24/24 15:03 levofloxacin [From Levaquin] Allergy Severe Itching Verified 04/24/24 15:03 enoxaparin [From Lovenox] Allergy Intermediate Rash Verified 04/24/24 15:03 Seasonal Allergies Allergy Mild Runny Nose Verified 04/24/24 15:03 venlafaxine [From Effexor] Allergy Mild Constipatio Verified 04/24/24 15:03 n Penicillins Allergy Unknown Unknown Verified 04/24/24 15:03 Active Medications: Current Medications Acetaminophen (Acetaminophen 325 Mg Tablet) 650 mg PO Q6H PRN PRN Reason: Headache/Pain Mild Scale (1-3) Al Hydroxide/Mg Hydroxide (Magnesium Hydrox/Alum Hydrox 30 Ml Oral.Susp) 30 ml PO Q6H PRN PRN Reason: Heartburn/Nausea Benztropine Mesylate (Benztropine Mesylate 0.5 Mg Tablet) 0.25 mg PO BID [facility] Last Admin: 04/28/24 09:05 Dose: 0.25 mg Cariprazine (Cariprazine Hcl 3 Mg Capsule) 3 mg PO DAILY [facility] Last Admin: 04/28/24 09:05 Dose: 3 mg Docusate Sodium (Docusate Sodium 100 Mg Capsule) 100 mg PO BID [facility] Last Admin: 04/28/24 09:05 Dose: 100 mg Gabapentin (Gabapentin 300 Mg Capsule) 600 mg PO BEDTIME [facility] Last Admin: 04/27/24 20:37 Dose: 600 mg Hydroxyzine HCl (Hydroxyzine Hcl 25 Mg Tablet) 25 mg PO Q6H PRN PRN Reason: Anxiety Last Admin: 04/27/24 20:37 Dose: 25 mg Magnesium Hydroxide (Milk Of Magnesia 30 Ml Oral.Susp) 30 ml PO DAILY PRN PRN Reason: Constipation Mirtazapine (Mirtazapine 30 Mg Tablet) 30 mg PO BEDTIME [facility] Last Admin: 04/27/24 20:38 Dose: 30 mg Omeprazole (Omeprazole 20 Mg Capsule.Dr) 20 mg PO BID [facility] Last Admin: 04/28/24 09:05 Dose: 20 mg Trazodone HCl (Trazodone Hcl 50 Mg Tablet) 50 mg PO BEDTIME MRX1 PRN PRN Reason: Insomnia Last Admin: 04/27/24 20:38 Dose: 50 mg Zolpidem Tartrate (Zolpidem Tartrate 5 Mg Tablet) 5 mg PO BEDTIME [facility] Last Admin: 04/27/24 20:37 Dose: 5 mg Home Medications ?Medication ?Instructions ?Recorded ?Confirmed ?Last Taken ?Type mirtazapine 30 mg tablet 30 mg PO BEDTIME 04/24/24 04/24/24 04/23/24 History omeprazole 20 mg capsule,delayed 20 mg PO DAILY@0630 04/25/24 04/25/24 Unknown History release thiamine HCl (vitamin B1) 100 mg 100 mg PO BID 04/25/24 04/25/24 Unknown History tablet (Vitamin B-1) Physical Exam 2 Vital Signs and Narrative: Vital Signs: Last Vital Signs Temp 98 F 04/28/24 08:00 Pulse 87 04/28/24 08:00 Resp 18 04/28/24 08:00 BP 113/61 04/28/24 08:00 Pulse Ox 99 04/28/24 08:00 O2 Del Method Room Air 04/28/24 08:00 BMI result Body Mass Index 21.5 General: AOx3, no acute distress Resp: CTA bilaterally CVS: S1, S2, RRR GI: +BS, NT, no distention Skin: Warm, dry Neuro: Cranial nerves II-XII grossly intact bilaterally. Motor grossly intact bilaterally Extremities: No edema Psych: Appropriate affect Const: General: No confusion Orientation/consciousness: No confusion Neuro: General: No confusion Results Labs 04/24/24 16:11 04/26/24 07:26 ECG Interpretation: normal. no QTc prolongation Assessment and Plan (1) Pre-op evaluation: Status: Acute Plan Patient is a 68-year-old female with a past medical history significant for bipolar 1, osteoarthritis, GERD, history DVT, cardiac murmur, who was recently admitted to Geriatric psych due to worsening depression for the past month. Consult for ECT risk stratification. Based on stated past medical history and exam there are no apparent medical contraindications to the planned procedure. Patient without previous issues with anesthesia, has previously underwent ECT in 12/2023. RCRI class 1 No further treatment or workup indicated at this Total time managing care of this patient today: 15 minutes.
[2024-04-28] MEDS: Lurasidone HCl 20 MG TABLET PO (11:00)
--- NOTE | 2024-04-28 14:31 | HO.PSYCHPN ---
Subjective Subjective Date of Service: 04/28/24 Reason For Visit: SI Interim History: met with patient; discussed with team; reviewed chart remains depressed; isolating in room by self. reviewed triggers for recent depressive episode and pt continues to say dog w/ diabetes, even though dog diagnosed prior to even past admissions. Discussed Latuda again as well as ECT and pt ammenable to both Mental Status Exam Mental Status Exam Narrative: Pt is alert and oriented; behavior is cooperative, quiet, calm, isolate; patient is not in distress; dressed in hospital attire with unkempt hair; mood is described as depressed and affect congruent, downcast; eye contact appropriate; Speech is slowed, soft, monotone; psychomotor retardation present; thought process is organized and goal directed; Thought content is on hopelessness, likely not get better, passive SI; otherwise pertinent to relevant topics and without any delusional content, paranoid ideations or grandiosity; passive SI; no intention/plans; no HI; There is no evidence of perceptual disturbance. Patients insight and judgment impaired. Diagnostics Vital Signs (24Hr): Vital Signs - 24 hr 04/27/24 20:00 04/28/24 08:00 Temperature 98.2 F 98 F Pulse Rate 72 87 Respiratory Rate 16 18 Blood Pressure 108/58 L 113/61 Pulse Oximetry 96 99 Oxygen Delivery Method Room Air Room Air BMI result Body Mass Index 21.5 Labs 04/24/24 16:11 04/26/24 07:26 Medications Medications Current Medications Acetaminophen (Acetaminophen 325 Mg Tablet) 650 mg PO Q6H PRN PRN Reason: Headache/Pain Mild Scale (1-3) Al Hydroxide/Mg Hydroxide (Magnesium Hydrox/Alum Hydrox 30 Ml Oral.Susp) 30 ml PO Q6H PRN PRN Reason: Heartburn/Nausea Benztropine Mesylate (Benztropine Mesylate 0.5 Mg Tablet) 0.25 mg PO BID [facility] Last Admin: 04/28/24 09:05 Dose: 0.25 mg Cariprazine (Cariprazine Hcl 3 Mg Capsule) 3 mg PO DAILY [facility] Last Admin: 04/28/24 09:05 Dose: 3 mg Docusate Sodium (Docusate Sodium 100 Mg Capsule) 100 mg PO BID [facility] Last Admin: 04/28/24 09:05 Dose: 100 mg Gabapentin (Gabapentin 300 Mg Capsule) 600 mg PO BEDTIME [facility] Last Admin: 04/27/24 20:37 Dose: 600 mg Hydroxyzine HCl (Hydroxyzine Hcl 25 Mg Tablet) 25 mg PO Q6H PRN PRN Reason: Anxiety Last Admin: 04/27/24 20:37 Dose: 25 mg Lurasidone HCl (Lurasidone Hcl 20 Mg Tablet) 20 mg PO DAILY@1800 [facility] Magnesium Hydroxide (Milk Of Magnesia 30 Ml Oral.Susp) 30 ml PO DAILY PRN PRN Reason: Constipation Mirtazapine (Mirtazapine 30 Mg Tablet) 30 mg PO BEDTIME [facility] Last Admin: 04/27/24 20:38 Dose: 30 mg Omeprazole (Omeprazole 20 Mg Capsule.Dr) 20 mg PO BID [facility] Last Admin: 04/28/24 09:05 Dose: 20 mg Trazodone HCl (Trazodone Hcl 50 Mg Tablet) 50 mg PO BEDTIME MRX1 PRN PRN Reason: Insomnia Last Admin: 04/27/24 20:38 Dose: 50 mg Zolpidem Tartrate (Zolpidem Tartrate 5 Mg Tablet) 5 mg PO BEDTIME [facility] Last Admin: 04/27/24 20:37 Dose: 5 mg Allergies Allergies Allergy/AdvReac Type Severity Reaction Status Date / Time bee pollen Allergy Severe Anaphylaxis Verified 04/24/24 15:03 levofloxacin [From Levaquin] Allergy Severe Itching Verified 04/24/24 15:03 enoxaparin [From Lovenox] Allergy Intermediate Rash Verified 04/24/24 15:03 Seasonal Allergies Allergy Mild Runny Nose Verified 04/24/24 15:03 venlafaxine [From Effexor] Allergy Mild Constipatio Verified 04/24/24 15:03 n Penicillins Allergy Unknown Unknown Verified 04/24/24 15:03 Assessment & Plan Assessment & Plan (1) Bipolar 1 disorder, depressed, severe: Status: Acute Code(s): F31.4 - Bipolar disorder, current episode depressed, severe, without psychotic features Plan HPI: Pt is a 68 yo female with hx of bipolar/bipolar depression, hx of ECT who presents for worsening depression. Pt says she was doing well following ECT, on medications. Last month her dog got diabetes and pt had to give dog insulin 2x a day; she started realizing her dog would eventually and depression set in. She stopped going out, stopped exercising (normally goes to gym 3x week), not eating, hard to sleep, not bathing or attending ADL's; Vraylar was increased but to no effect so lowered back to 3 mg. Pt started wishing she were , no wanting to live any more, though no intent or plan. Her brother insisted she come to hospital -continue home meds; strongly consider switching to Latuda (and discontinuing Vraylar); discussed ECT which has worked in past and is an option Hospital course: 04/28 pt remains depressed, isolative. Agrees to having started Latuda and increasing dose. Pt medically cleared for eCT and pt says she is willing to get it Plan: CV q15mn continue home meds START Latuda 40mg daily; will titrate (if helpful will likedy dc Vraylar) Discussing ECT Patient educated on: diagnosis, medication risk/benefits and ECT Informed Consent: understands Patient educated on: diagnosis, medication risk/benefits, ECT and therapeutic strategies Informed Consent: understands Reason for continued inpatient stay Substantial Risk for: inability to function Time Spent With Patient Time: Total time managing care of this patient today ____ minutes.
[2024-04-28 20:00] VITALS: BP 118/67; PULSE 72; TEMP 36.8; O2SAT 95
[2024-04-28] MEDS: Zolpidem Tartrate 5 MG TABLET PO (21:06)
[2024-04-28] MEDS: traZODone HCL 50 MG TABLET PO (21:07)
[2024-04-28] MEDS: Gabapentin 300 MG CAPSULE 600 MG PO (21:08)
[2024-04-28] MEDS: Mirtazapine 30 MG TABLET PO (21:09)
[2024-04-28] MEDS: hydrOXYzine HCL 25 MG TABLET PO (21:12)
[2024-04-29 09:19] VITALS: BP 135/60; PULSE 80; RESP 18; TEMP 36.6; O2SAT 96
[2024-04-29] MEDS: Benztropine Mesylate 0.5 MG TABLET 0.25 MG PO ×2 (09:33→20:38)
[2024-04-29] MEDS: Omeprazole 20 MG CAPSULE.DR PO ×2 (09:34→20:38)
[2024-04-29] MEDS: Cariprazine HCl 3 MG CAPSULE PO (09:34)
[2024-04-29] MEDS: Docusate Sodium 100 MG CAPSULE PO ×2 (09:34→20:38)
--- NOTE | 2024-04-29 11:38 | P.PNPSI_ITS ---
Subjective Subjective Date of Service: 04/29/24 Reason For Visit: SI Interim History: met with patient; discussed with team pt remains depressed, hopeless, says nothing will help. Agrees with Latuda. Mostly in bed all day Mental Status Exam Mental Status Exam Narrative: Pt is alert and oriented; behavior is cooperative, quiet, calm, isolate; patient is not in distress; dressed in hospital attire with unkempt hair; mood is described as depressed and affect congruent, downcast; eye contact appropriate; Speech is slowed, soft, monotone; psychomotor retardation present; thought process is organized and goal directed; Thought content is on hopelessness, likely not get better, passive SI; otherwise pertinent to relevant topics and without any delusional content, paranoid ideations or grandiosity; passive SI; no intention/plans; no HI; There is no evidence of perceptual disturbance. Patients insight and judgment impaired. Diagnostics Vital Signs (24Hr): Vital Signs - 24 hr 04/28/24 20:00 04/29/24 09:19 Temperature 98.2 F 98 F Pulse Rate 72 80 Respiratory Rate 18 Blood Pressure 118/67 135/60 Pulse Oximetry 95 96 Oxygen Delivery Method Room Air Room Air BMI result Body Mass Index 21.5 Labs 04/24/24 16:11 04/26/24 07:26 Medications Medications Current Medications Acetaminophen (Acetaminophen 325 Mg Tablet) 650 mg PO Q6H PRN PRN Reason: Headache/Pain Mild Scale (1-3) Al Hydroxide/Mg Hydroxide (Magnesium Hydrox/Alum Hydrox 30 Ml Oral.Susp) 30 ml PO Q6H PRN PRN Reason: Heartburn/Nausea Benztropine Mesylate (Benztropine Mesylate 0.5 Mg Tablet) 0.25 mg PO BID [facility] Last Admin: 04/29/24 09:33 Dose: 0.25 mg Cariprazine (Cariprazine Hcl 3 Mg Capsule) 3 mg PO DAILY [facility] Last Admin: 04/29/24 09:34 Dose: 3 mg Docusate Sodium (Docusate Sodium 100 Mg Capsule) 100 mg PO BID [facility] Last Admin: 04/29/24 09:34 Dose: 100 mg Gabapentin (Gabapentin 300 Mg Capsule) 600 mg PO BEDTIME [facility] Last Admin: 04/28/24 21:08 Dose: 600 mg Hydroxyzine HCl (Hydroxyzine Hcl 25 Mg Tablet) 25 mg PO Q6H PRN PRN Reason: Anxiety Last Admin: 04/28/24 21:12 Dose: 25 mg Lurasidone HCl (Lurasidone Hcl 40 Mg Tablet) 40 mg PO DAILY@1800 [facility] Magnesium Hydroxide (Milk Of Magnesia 30 Ml Oral.Susp) 30 ml PO DAILY PRN PRN Reason: Constipation Mirtazapine (Mirtazapine 30 Mg Tablet) 30 mg PO BEDTIME [facility] Last Admin: 04/28/24 21:09 Dose: 30 mg Omeprazole (Omeprazole 20 Mg Capsule.Dr) 20 mg PO BID [facility] Last Admin: 04/29/24 09:34 Dose: 20 mg Trazodone HCl (Trazodone Hcl 50 Mg Tablet) 50 mg PO BEDTIME MRX1 PRN PRN Reason: Insomnia Last Admin: 04/28/24 21:07 Dose: 50 mg Zolpidem Tartrate (Zolpidem Tartrate 5 Mg Tablet) 5 mg PO BEDTIME [facility] Last Admin: 04/28/24 21:06 Dose: 5 mg Allergies Allergies Allergy/AdvReac Type Severity Reaction Status Date / Time bee pollen Allergy Severe Anaphylaxis Verified 04/24/24 15:03 levofloxacin [From Levaquin] Allergy Severe Itching Verified 04/24/24 15:03 enoxaparin [From Lovenox] Allergy Intermediate Rash Verified 04/24/24 15:03 Seasonal Allergies Allergy Mild Runny Nose Verified 04/24/24 15:03 venlafaxine [From Effexor] Allergy Mild Constipatio Verified 04/24/24 15:03 n Penicillins Allergy Unknown Unknown Verified 04/24/24 15:03 Assessment & Plan Assessment & Plan (1) Bipolar 1 disorder, depressed, severe: Status: Acute Code(s): F31.4 - Bipolar disorder, current episode depressed, severe, without psychotic features Plan HPI: Pt is a 68 yo female with hx of bipolar/bipolar depression, hx of ECT who presents for worsening depression. Pt says she was doing well following ECT, on medications. Last month her dog got diabetes and pt had to give dog insulin 2x a day; she started realizing her dog would eventually and depression set in. She stopped going out, stopped exercising (normally goes to gym 3x week), not eating, hard to sleep, not bathing or attending ADL's; Vraylar was increased but to no effect so lowered back to 3 mg. Pt started wishing she were , no wanting to live any more, though no intent or plan. Her brother insisted she come to hospital -continue home meds; strongly consider switching to Latuda (and discontinuing Vraylar); discussed ECT which has worked in past and is an option Hospital course: pt remain depressed, hopeless; starting latuda; if not helpful will start ECT. Discussed behavioral activation Plan: CV q15mn Start Latuda; continue home meds Hospitalist for ECT clearance Patient educated on: diagnosis, medication risk/benefits, ECT and therapeutic strategies Informed Consent: understands, does not understand and further education needed Reason for continued inpatient stay Substantial Risk for: inability to function Time Spent With Patient Time: Total time managing care of this patient today ____ minutes.
[2024-04-29] MEDS: Lurasidone HCl 20 MG TABLET 60 MG PO (18:40)
[2024-04-29 20:00] VITALS: BP 101/60; PULSE 82; RESP 17; TEMP 36.6; O2SAT 95
[2024-04-29] MEDS: traZODone HCL 50 MG TABLET PO (20:37)
[2024-04-29] MEDS: Gabapentin 300 MG CAPSULE 600 MG PO (20:37)
[2024-04-29] MEDS: Mirtazapine 30 MG TABLET PO (20:37)
[2024-04-29] MEDS: Zolpidem Tartrate 5 MG TABLET PO (20:39)
[2024-04-29] MEDS: hydrOXYzine HCL 25 MG TABLET PO (20:42)
[2024-04-30 08:24] VITALS: BP 118/70; PULSE 89; RESP 20; TEMP 36.4; O2SAT 97
[2024-04-30] MEDS: Docusate Sodium 100 MG CAPSULE PO ×2 (08:27→20:54)
[2024-04-30] MEDS: Benztropine Mesylate 0.5 MG TABLET 0.25 MG PO ×2 (08:27→20:55)
[2024-04-30] MEDS: Omeprazole 20 MG CAPSULE.DR PO ×2 (08:27→20:54)
[2024-04-30] MEDS: Cariprazine HCl 3 MG CAPSULE PO (08:27)
[2024-04-30] MEDS: Lurasidone HCl 20 MG TABLET 60 MG PO (18:34)
[2024-04-30 20:00] VITALS: BP 126/76; PULSE 71; RESP 16; TEMP 36; O2SAT 97
[2024-04-30] MEDS: Zolpidem Tartrate 5 MG TABLET PO (20:54)
[2024-04-30] MEDS: Mirtazapine 30 MG TABLET PO (20:54)
[2024-04-30] MEDS: Gabapentin 300 MG CAPSULE 600 MG PO (20:55)
[2024-04-30] MEDS: traZODone HCL 50 MG TABLET PO (21:43)
[2024-04-30] MEDS: hydrOXYzine HCL 25 MG TABLET PO (21:43)
--- NOTE | 2024-04-30 23:58 | P.PNPSI_ITS ---
Subjective Subjective Date of Service: 04/30/24 Reason For Visit: SI Interim History: met with patient; discussed with team no change, remains very depressed, says nothing will help Mental Status Exam Mental Status Exam Narrative: Pt is alert and oriented; behavior is isolative, quiet, calm, isolate; patient is not in distress; dressed in hospital attire with unkempt hair; mood is described as depressed and affect congruent, downcast; eye contact appropriate; Speech is slowed, soft, monotone; psychomotor retardation present; thought process is organized and goal directed; Thought content is on hopelessness, likely not get better, passive SI; otherwise pertinent to relevant topics and without any delusional content, paranoid ideations or grandiosity; passive SI; no intention/plans; no HI; There is no evidence of perceptual disturbance. Patients insight and judgment impaired. Diagnostics Vital Signs (24Hr): Vital Signs - 24 hr 04/30/24 08:24 04/30/24 20:00 Temperature 97.6 F 96.8 F Pulse Rate 89 71 Respiratory Rate 20 16 Blood Pressure 118/70 126/76 Pulse Oximetry 97 97 Oxygen Delivery Method Room Air Room Air BMI result Body Mass Index 21.5 Labs 04/24/24 16:11 04/26/24 07:26 Medications Medications Current Medications Acetaminophen (Acetaminophen 325 Mg Tablet) 650 mg PO Q6H PRN PRN Reason: Headache/Pain Mild Scale (1-3) Al Hydroxide/Mg Hydroxide (Magnesium Hydrox/Alum Hydrox 30 Ml Oral.Susp) 30 ml PO Q6H PRN PRN Reason: Heartburn/Nausea Benztropine Mesylate (Benztropine Mesylate 0.5 Mg Tablet) 0.25 mg PO BID [facility] Last Admin: 04/30/24 20:55 Dose: 0.25 mg Cariprazine (Cariprazine Hcl 3 Mg Capsule) 3 mg PO DAILY [facility] Last Admin: 04/30/24 08:27 Dose: 3 mg Docusate Sodium (Docusate Sodium 100 Mg Capsule) 100 mg PO BID [facility] Last Admin: 04/30/24 20:54 Dose: 100 mg Gabapentin (Gabapentin 300 Mg Capsule) 600 mg PO BEDTIME [facility] Last Admin: 04/30/24 20:55 Dose: 600 mg Hydroxyzine HCl (Hydroxyzine Hcl 25 Mg Tablet) 25 mg PO Q6H PRN PRN Reason: Anxiety Last Admin: 04/30/24 21:43 Dose: 25 mg Lurasidone HCl (Lurasidone Hcl 20 Mg Tablet) 60 mg PO DAILY@1800 [facility] Last Admin: 04/30/24 18:34 Dose: 60 mg Magnesium Hydroxide (Milk Of Magnesia 30 Ml Oral.Susp) 30 ml PO DAILY PRN PRN Reason: Constipation Mirtazapine (Mirtazapine 30 Mg Tablet) 30 mg PO BEDTIME [facility] Last Admin: 04/30/24 20:54 Dose: 30 mg Omeprazole (Omeprazole 20 Mg Capsule.Dr) 20 mg PO BID [facility] Last Admin: 04/30/24 20:54 Dose: 20 mg Trazodone HCl (Trazodone Hcl 50 Mg Tablet) 50 mg PO BEDTIME MRX1 PRN PRN Reason: Insomnia Last Admin: 04/30/24 21:43 Dose: 50 mg Zolpidem Tartrate (Zolpidem Tartrate 5 Mg Tablet) 5 mg PO BEDTIME [facility] Last Admin: 04/30/24 20:54 Dose: 5 mg Allergies Allergies Allergy/AdvReac Type Severity Reaction Status Date / Time bee pollen Allergy Severe Anaphylaxis Verified 04/24/24 15:03 levofloxacin [From Levaquin] Allergy Severe Itching Verified 04/24/24 15:03 enoxaparin [From Lovenox] Allergy Intermediate Rash Verified 04/24/24 15:03 Seasonal Allergies Allergy Mild Runny Nose Verified 04/24/24 15:03 venlafaxine [From Effexor] Allergy Mild Constipatio Verified 04/24/24 15:03 n Penicillins Allergy Unknown Unknown Verified 04/24/24 15:03 Assessment & Plan Assessment & Plan (1) Bipolar 1 disorder, depressed, severe: Status: Acute Code(s): F31.4 - Bipolar disorder, current episode depressed, severe, without psychotic features Plan HPI: Pt is a 68 yo female with hx of bipolar/bipolar depression, hx of ECT who presents for worsening depression. Pt says she was doing well following ECT, on medications. Last month her dog got diabetes and pt had to give dog insulin 2x a day; she started realizing her dog would eventually and depression set in. She stopped going out, stopped exercising (normally goes to gym 3x week), not eating, hard to sleep, not bathing or attending ADL's; Vraylar was increased but to no effect so lowered back to 3 mg. Pt started wishing she were , no wanting to live any more, though no intent or plan. Her brother insisted she come to hospital -continue home meds; strongly consider switching to Latuda (and discontinuing Vraylar); discussed ECT which has worked in past and is an option Hospital course: -pt remain depressed, hopeless; starting latuda; if not helpful will start ECT. Discussed behavioral activation 04/28 pt remains depressed, isolative. Agrees to having started Latuda and increasing dose. Pt medically cleared for eCT and pt says she is willing to get it 04/30 remains severely depressed; agrees to Latuda and to titrate; agrees to ECT Plan: CV q15mn continue home meds START Latuda 40mg daily; will titrate (if helpful will likedy dc Vraylar) Discussing ECT Patient educated on: diagnosis, medication risk/benefits, ECT and therapeutic strategies Informed Consent: understands, does not understand and further education needed Reason for continued inpatient stay Substantial Risk for: inability to function Time Spent With Patient Time: Total time managing care of this patient today ____ minutes.
[2024-05-01] MEDS: traZODone HCL 50 MG TABLET PO ×2 (00:19→20:50)
[2024-05-01 07:00] VITALS: BMI 22.4
[2024-05-01 07:58] VITALS: BP 126/78; PULSE 89; RESP 18; O2SAT 95
[2024-05-01] MEDS: Omeprazole 20 MG CAPSULE.DR PO ×2 (08:44→20:49)
[2024-05-01] MEDS: Cariprazine HCl 3 MG CAPSULE PO (08:44)
[2024-05-01] MEDS: Benztropine Mesylate 0.5 MG TABLET 0.25 MG PO ×2 (08:44→20:48)
[2024-05-01] MEDS: Docusate Sodium 100 MG CAPSULE PO ×2 (08:44→20:49)
--- NOTE | 2024-05-01 13:44 | P.PNPSI_ITS ---
Subjective Subjective Date of Service: 05/01/24 Reason For Visit: SI Diagnostics Vital Signs (24Hr): Vital Signs - 24 hr 04/30/24 20:00 05/01/24 07:58 Temperature 96.8 F Pulse Rate 71 89 Respiratory Rate 16 18 Blood Pressure 126/76 126/78 Pulse Oximetry 97 95 Oxygen Delivery Method Room Air Room Air BMI result Body Mass Index 21.5 Labs 04/24/24 16:11 04/26/24 07:26 Medications Medications Current Medications Acetaminophen (Acetaminophen 325 Mg Tablet) 650 mg PO Q6H PRN PRN Reason: Headache/Pain Mild Scale (1-3) Al Hydroxide/Mg Hydroxide (Magnesium Hydrox/Alum Hydrox 30 Ml Oral.Susp) 30 ml PO Q6H PRN PRN Reason: Heartburn/Nausea Benztropine Mesylate (Benztropine Mesylate 0.5 Mg Tablet) 0.25 mg PO BID [facility] Last Admin: 05/01/24 08:44 Dose: 0.25 mg Cariprazine (Cariprazine Hcl 3 Mg Capsule) 3 mg PO DAILY [facility] Last Admin: 05/01/24 08:44 Dose: 3 mg Docusate Sodium (Docusate Sodium 100 Mg Capsule) 100 mg PO BID [facility] Last Admin: 05/01/24 08:44 Dose: 100 mg Gabapentin (Gabapentin 300 Mg Capsule) 600 mg PO BEDTIME [facility] Last Admin: 04/30/24 20:55 Dose: 600 mg Hydroxyzine HCl (Hydroxyzine Hcl 25 Mg Tablet) 25 mg PO Q6H PRN PRN Reason: Anxiety Last Admin: 04/30/24 21:43 Dose: 25 mg Lurasidone HCl (Lurasidone Hcl 20 Mg Tablet) 60 mg PO DAILY@1800 [facility] Last Admin: 04/30/24 18:34 Dose: 60 mg Magnesium Hydroxide (Milk Of Magnesia 30 Ml Oral.Susp) 30 ml PO DAILY PRN PRN Reason: Constipation Mirtazapine (Mirtazapine 30 Mg Tablet) 30 mg PO BEDTIME [facility] Last Admin: 04/30/24 20:54 Dose: 30 mg Omeprazole (Omeprazole 20 Mg Capsule.Dr) 20 mg PO BID [facility] Last Admin: 05/01/24 08:44 Dose: 20 mg Trazodone HCl (Trazodone Hcl 50 Mg Tablet) 50 mg PO BEDTIME MRX1 PRN PRN Reason: Insomnia Last Admin: 05/01/24 00:19 Dose: 50 mg Zolpidem Tartrate (Zolpidem Tartrate 5 Mg Tablet) 5 mg PO BEDTIME [facility] Last Admin: 04/30/24 20:54 Dose: 5 mg Allergies Allergies Allergy/AdvReac Type Severity Reaction Status Date / Time bee pollen Allergy Severe Anaphylaxis Verified 04/24/24 15:03 levofloxacin [From Levaquin] Allergy Severe Itching Verified 04/24/24 15:03 enoxaparin [From Lovenox] Allergy Intermediate Rash Verified 04/24/24 15:03 Seasonal Allergies Allergy Mild Runny Nose Verified 04/24/24 15:03 venlafaxine [From Effexor] Allergy Mild Constipatio Verified 04/24/24 15:03 n Penicillins Allergy Unknown Unknown Verified 04/24/24 15:03 Assessment & Plan Assessment & Plan (1) Bipolar 1 disorder, depressed, severe: Status: Acute Code(s): F31.4 - Bipolar disorder, current episode depressed, severe, without psychotic features Plan HPI: Pt is a 68 yo female with hx of bipolar/bipolar depression, hx of ECT who presents for worsening depression. Pt says she was doing well following ECT, on medications. Last month her dog got diabetes and pt had to give dog insulin 2x a day; she started realizing her dog would eventually and depression set in. She stopped going out, stopped exercising (normally goes to gym 3x week), not eating, hard to sleep, not bathing or attending ADL's; Vraylar was increased but to no effect so lowered back to 3 mg. Pt started wishing she were , no wanting to live any more, though no intent or plan. Her brother insisted she come to hospital -continue home meds; strongly consider switching to Latuda (and discontinuing Vraylar); discussed ECT which has worked in past and is an option Hospital course: -pt remain depressed, hopeless; starting latuda; if not helpful will start ECT. Discussed behavioral activation 04/28 pt remains depressed, isolative. Agrees to having started Latuda and increasing dose. Pt medically cleared for eCT and pt says she is willing to get it 04/30 remains severely depressed; agrees to Latuda and to titrate; agrees to ECT Plan: CV q15mn continue home meds Increase Latuda 60mg daily; will titrate (if helpful will likedy dc Vraylar) Discussing ECT Patient educated on: diagnosis, medication risk/benefits and ECT Informed Consent: understands, does not understand and further education needed Reason for continued inpatient stay Substantial Risk for: inability to function Time Spent With Patient Time: Total time managing care of this patient today ____ minutes.
[2024-05-01] MEDS: Lurasidone HCl 20 MG TABLET 60 MG PO (18:01)
[2024-05-01 20:00] VITALS: RESP 17
[2024-05-01] MEDS: Mirtazapine 30 MG TABLET PO (20:49)
[2024-05-01] MEDS: Gabapentin 300 MG CAPSULE 600 MG PO (20:49)
[2024-05-01] MEDS: Zolpidem Tartrate 5 MG TABLET PO (20:50)
[2024-05-01] MEDS: hydrOXYzine HCL 25 MG TABLET PO (20:50)
[2024-05-02 08:00] VITALS: BP 127/61; PULSE 80; RESP 18; TEMP 36.7; O2SAT 95
[2024-05-02] MEDS: Benztropine Mesylate 0.5 MG TABLET 0.25 MG PO ×2 (09:11→20:56)
[2024-05-02] MEDS: Omeprazole 20 MG CAPSULE.DR PO ×2 (09:11→20:57)
[2024-05-02] MEDS: Cariprazine HCl 3 MG CAPSULE PO (09:11)
[2024-05-02] MEDS: Docusate Sodium 100 MG CAPSULE PO ×2 (09:11→20:57)
[2024-05-02] MEDS: Lurasidone HCl 20 MG TABLET 60 MG PO (18:45)
[2024-05-02 20:00] VITALS: BP 114/68; PULSE 70; RESP 16; TEMP 36.8; O2SAT 95
[2024-05-02] MEDS: hydrOXYzine HCL 25 MG TABLET PO (20:57)
[2024-05-02] MEDS: Gabapentin 300 MG CAPSULE 600 MG PO (20:57)
[2024-05-02] MEDS: Mirtazapine 30 MG TABLET PO (20:57)
[2024-05-02] MEDS: Zolpidem Tartrate 5 MG TABLET PO (20:57)
[2024-05-02] MEDS: traZODone HCL 50 MG TABLET PO (20:57)
--- NOTE | 2024-05-02 23:54 | HO.PSYCHPN ---
Subjective Subjective Date of Service: 05/02/24 Reason For Visit: SI Interim History: met with patient; discussed with team pt remains very depressed, hopeless; says nothing will help... agrees to ECT Diagnostics Vital Signs (24Hr): Vital Signs - 24 hr 05/02/24 08:00 05/02/24 20:00 Temperature 98.1 F 98.2 F Pulse Rate 80 70 Respiratory Rate 18 16 Blood Pressure 127/61 114/68 Pulse Oximetry 95 95 Oxygen Delivery Method Room Air Room Air BMI result Body Mass Index 22.4 Labs 04/24/24 16:11 04/26/24 07:26 Medications Medications Current Medications Acetaminophen (Acetaminophen 325 Mg Tablet) 650 mg PO Q6H PRN PRN Reason: Headache/Pain Mild Scale (1-3) Al Hydroxide/Mg Hydroxide (Magnesium Hydrox/Alum Hydrox 30 Ml Oral.Susp) 30 ml PO Q6H PRN PRN Reason: Heartburn/Nausea Benztropine Mesylate (Benztropine Mesylate 0.5 Mg Tablet) 0.25 mg PO BID [facility] Last Admin: 05/02/24 20:56 Dose: 0.25 mg Cariprazine (Cariprazine Hcl 3 Mg Capsule) 3 mg PO DAILY [facility] Last Admin: 05/02/24 09:11 Dose: 3 mg Docusate Sodium (Docusate Sodium 100 Mg Capsule) 100 mg PO BID [facility] Last Admin: 05/02/24 20:57 Dose: 100 mg Gabapentin (Gabapentin 300 Mg Capsule) 600 mg PO BEDTIME [facility] Last Admin: 05/02/24 20:57 Dose: 600 mg Hydroxyzine HCl (Hydroxyzine Hcl 25 Mg Tablet) 25 mg PO Q6H PRN PRN Reason: Anxiety Last Admin: 05/02/24 20:57 Dose: 25 mg Lurasidone HCl (Lurasidone Hcl 20 Mg Tablet) 60 mg PO DAILY@1800 [facility] Last Admin: 05/01/24 18:01 Dose: 60 mg Magnesium Hydroxide (Milk Of Magnesia 30 Ml Oral.Susp) 30 ml PO DAILY PRN PRN Reason: Constipation Mirtazapine (Mirtazapine 30 Mg Tablet) 30 mg PO BEDTIME [facility] Last Admin: 05/02/24 20:57 Dose: 30 mg Omeprazole (Omeprazole 20 Mg Capsule.Dr) 20 mg PO BID [facility] Last Admin: 05/02/24 20:57 Dose: 20 mg Trazodone HCl (Trazodone Hcl 50 Mg Tablet) 50 mg PO BEDTIME MRX1 PRN PRN Reason: Insomnia Last Admin: 05/02/24 20:57 Dose: 50 mg Zolpidem Tartrate (Zolpidem Tartrate 5 Mg Tablet) 5 mg PO BEDTIME [facility] Last Admin: 05/02/24 20:57 Dose: 5 mg Allergies Allergies Allergy/AdvReac Type Severity Reaction Status Date / Time bee pollen Allergy Severe Anaphylaxis Verified 04/24/24 15:03 levofloxacin [From Levaquin] Allergy Severe Itching Verified 04/24/24 15:03 enoxaparin [From Lovenox] Allergy Intermediate Rash Verified 04/24/24 15:03 Seasonal Allergies Allergy Mild Runny Nose Verified 04/24/24 15:03 venlafaxine [From Effexor] Allergy Mild Constipatio Verified 04/24/24 15:03 n Penicillins Allergy Unknown Unknown Verified 04/24/24 15:03 Assessment & Plan Assessment & Plan (1) Bipolar 1 disorder, depressed, severe: Status: Acute Code(s): F31.4 - Bipolar disorder, current episode depressed, severe, without psychotic features Plan HPI: Pt is a 68 yo female with hx of bipolar/bipolar depression, hx of ECT who presents for worsening depression. Pt says she was doing well following ECT, on medications. Last month her dog got diabetes and pt had to give dog insulin 2x a day; she started realizing her dog would eventually and depression set in. She stopped going out, stopped exercising (normally goes to gym 3x week), not eating, hard to sleep, not bathing or attending ADL's; Vraylar was increased but to no effect so lowered back to 3 mg. Pt started wishing she were , no wanting to live any more, though no intent or plan. Her brother insisted she come to hospital -continue home meds; strongly consider switching to Latuda (and discontinuing Vraylar); discussed ECT which has worked in past and is an option Hospital course: -pt remain depressed, hopeless; starting latuda; if not helpful will start ECT. Discussed behavioral activation 04/28 pt remains depressed, isolative. Agrees to having started Latuda and increasing dose. Pt medically cleared for eCT and pt says she is willing to get it 04/30 remains severely depressed; agrees to Latuda and to titrate; agrees to ECT 05/02 remains very depressed; agrees to ECT Plan: CV q15mn continue home meds Latuda 60mg daily; will titrate (if helpful will adilia Garcia) Discussing ECT Patient educated on: diagnosis, medication risk/benefits and ECT Informed Consent: understands, does not understand and further education needed Reason for continued inpatient stay Substantial Risk for: inability to function Time Spent With Patient Time: Total time managing care of this patient today ____ minutes.
[2024-05-03 08:00] VITALS: BP 128/63; PULSE 75; RESP 16; TEMP 37.4; O2SAT 95
[2024-05-03] MEDS: Omeprazole 20 MG CAPSULE.DR PO ×2 (08:04→20:50)
[2024-05-03] MEDS: Benztropine Mesylate 0.5 MG TABLET 0.25 MG PO ×2 (08:05→20:51)
[2024-05-03] MEDS: Docusate Sodium 100 MG CAPSULE PO ×2 (08:05→20:50)
[2024-05-03] MEDS: Cariprazine HCl 3 MG CAPSULE PO (08:05)
--- NOTE | 2024-05-03 08:06 | HO.PSYCHPN ---
Subjective Subjective Date of Service: 05/03/24 Reason For Visit: SI Diagnostics Vital Signs (24Hr): Vital Signs - 24 hr 05/02/24 20:00 Temperature 98.2 F Pulse Rate 70 Respiratory Rate 16 Blood Pressure 114/68 Pulse Oximetry 95 Oxygen Delivery Method Room Air BMI result Body Mass Index 22.4 Labs 04/24/24 16:11 04/26/24 07:26 Medications Medications Current Medications Acetaminophen (Acetaminophen 325 Mg Tablet) 650 mg PO Q6H PRN PRN Reason: Headache/Pain Mild Scale (1-3) Al Hydroxide/Mg Hydroxide (Magnesium Hydrox/Alum Hydrox 30 Ml Oral.Susp) 30 ml PO Q6H PRN PRN Reason: Heartburn/Nausea Benztropine Mesylate (Benztropine Mesylate 0.5 Mg Tablet) 0.25 mg PO BID [facility] Last Admin: 05/02/24 20:56 Dose: 0.25 mg Cariprazine (Cariprazine Hcl 3 Mg Capsule) 3 mg PO DAILY [facility] Last Admin: 05/02/24 09:11 Dose: 3 mg Docusate Sodium (Docusate Sodium 100 Mg Capsule) 100 mg PO BID [facility] Last Admin: 05/02/24 20:57 Dose: 100 mg Gabapentin (Gabapentin 300 Mg Capsule) 600 mg PO BEDTIME [facility] Last Admin: 05/02/24 20:57 Dose: 600 mg Hydroxyzine HCl (Hydroxyzine Hcl 25 Mg Tablet) 25 mg PO Q6H PRN PRN Reason: Anxiety Last Admin: 05/02/24 20:57 Dose: 25 mg Lurasidone HCl (Lurasidone Hcl 20 Mg Tablet) 60 mg PO DAILY@1800 [facility] Last Admin: 05/01/24 18:01 Dose: 60 mg Magnesium Hydroxide (Milk Of Magnesia 30 Ml Oral.Susp) 30 ml PO DAILY PRN PRN Reason: Constipation Mirtazapine (Mirtazapine 30 Mg Tablet) 30 mg PO BEDTIME [facility] Last Admin: 05/02/24 20:57 Dose: 30 mg Omeprazole (Omeprazole 20 Mg Capsule.Dr) 20 mg PO BID [facility] Last Admin: 05/02/24 20:57 Dose: 20 mg Trazodone HCl (Trazodone Hcl 50 Mg Tablet) 50 mg PO BEDTIME MRX1 PRN PRN Reason: Insomnia Last Admin: 05/02/24 20:57 Dose: 50 mg Zolpidem Tartrate (Zolpidem Tartrate 5 Mg Tablet) 5 mg PO BEDTIME [facility] Last Admin: 05/02/24 20:57 Dose: 5 mg Allergies Allergies Allergy/AdvReac Type Severity Reaction Status Date / Time bee pollen Allergy Severe Anaphylaxis Verified 04/24/24 15:03 levofloxacin [From Levaquin] Allergy Severe Itching Verified 04/24/24 15:03 enoxaparin [From Lovenox] Allergy Intermediate Rash Verified 04/24/24 15:03 Seasonal Allergies Allergy Mild Runny Nose Verified 04/24/24 15:03 venlafaxine [From Effexor] Allergy Mild Constipatio Verified 04/24/24 15:03 n Penicillins Allergy Unknown Unknown Verified 04/24/24 15:03 Assessment & Plan Assessment & Plan (1) Bipolar 1 disorder, depressed, severe: Status: Acute Code(s): F31.4 - Bipolar disorder, current episode depressed, severe, without psychotic features Plan HPI: Pt is a 68 yo female with hx of bipolar/bipolar depression, hx of ECT who presents for worsening depression. Pt says she was doing well following ECT, on medications. Last month her dog got diabetes and pt had to give dog insulin 2x a day; she started realizing her dog would eventually and depression set in. She stopped going out, stopped exercising (normally goes to gym 3x week), not eating, hard to sleep, not bathing or attending ADL's; Vraylar was increased but to no effect so lowered back to 3 mg. Pt started wishing she were , no wanting to live any more, though no intent or plan. Her brother insisted she come to hospital -continue home meds; strongly consider switching to Latuda (and discontinuing Vraylar); discussed ECT which has worked in past and is an option Hospital course: -pt remain depressed, hopeless; starting latuda; if not helpful will start ECT. Discussed behavioral activation 04/28 pt remains depressed, isolative. Agrees to having started Latuda and increasing dose. Pt medically cleared for eCT and pt says she is willing to get it 04/30 remains severely depressed; agrees to Latuda and to titrate; agrees to ECT 05/02 remains very depressed; agrees to ECT Plan: CV q15mn continue home meds Latuda 60mg daily; will titrate (if helpful will likedy dc Vraylar) Discussing ECT Time Spent With Patient Time: Total time managing care of this patient today ____ minutes.
--- NOTE | 2024-05-03 09:02 | HO.PSYCHPN ---
Subjective Subjective Date of Service: 05/03/24 Reason For Visit: SI Interim History: Met with patient; discussed with team Patient?reports?that?she?is the?same...??Depressed and?reiterates?that?nothing?will?work.??She?does?agree?to?increasing?Latuda?and?also?to?ECT?on?Sunday? Though?again?says?it?will?not?work.??However?music writer?provided?education?and?patient?seemed?to?accept?that? Perhaps?ECT?could?work.??Expresses?intermittent?passive?SI Mental Status Exam Mental Status Exam Narrative: Pt is alert and oriented; behavior is isolative, quiet, calm, isolate; patient is not in distress; dressed in hospital attire with unkempt hair; mood is described as depressed and affect congruent, downcast; eye contact appropriate; Speech is slowed, soft, monotone; psychomotor retardation present; thought process is organized and goal directed; Thought content is on hopelessness, likely not get better, passive SI; otherwise pertinent to relevant topics and without any delusional content, paranoid ideations or grandiosity; passive SI; no intention/plans; no HI; There is no evidence of perceptual disturbance. Patients insight and judgment impaired. Diagnostics Vital Signs (24Hr): Vital Signs - 24 hr 05/02/24 20:00 Temperature 98.2 F Pulse Rate 70 Respiratory Rate 16 Blood Pressure 114/68 Pulse Oximetry 95 Oxygen Delivery Method Room Air BMI result Body Mass Index 22.4 Labs 04/24/24 16:11 04/26/24 07:26 Medications Medications Current Medications Acetaminophen (Acetaminophen 325 Mg Tablet) 650 mg PO Q6H PRN PRN Reason: Headache/Pain Mild Scale (1-3) Al Hydroxide/Mg Hydroxide (Magnesium Hydrox/Alum Hydrox 30 Ml Oral.Susp) 30 ml PO Q6H PRN PRN Reason: Heartburn/Nausea Benztropine Mesylate (Benztropine Mesylate 0.5 Mg Tablet) 0.25 mg PO BID [facility] Last Admin: 05/03/24 08:05 Dose: 0.25 mg Cariprazine (Cariprazine Hcl 3 Mg Capsule) 3 mg PO DAILY [facility] Last Admin: 05/03/24 08:05 Dose: 3 mg Docusate Sodium (Docusate Sodium 100 Mg Capsule) 100 mg PO BID [facility] Last Admin: 05/03/24 08:05 Dose: 100 mg Gabapentin (Gabapentin 300 Mg Capsule) 600 mg PO BEDTIME [facility] Last Admin: 05/02/24 20:57 Dose: 600 mg Hydroxyzine HCl (Hydroxyzine Hcl 25 Mg Tablet) 25 mg PO Q6H PRN PRN Reason: Anxiety Last Admin: 05/02/24 20:57 Dose: 25 mg Lurasidone HCl (Lurasidone Hcl 20 Mg Tablet) 60 mg PO DAILY@1800 [facility] Last Admin: 05/01/24 18:01 Dose: 60 mg Magnesium Hydroxide (Milk Of Magnesia 30 Ml Oral.Susp) 30 ml PO DAILY PRN PRN Reason: Constipation Mirtazapine (Mirtazapine 30 Mg Tablet) 30 mg PO BEDTIME [facility] Last Admin: 05/02/24 20:57 Dose: 30 mg Omeprazole (Omeprazole 20 Mg Capsule.Dr) 20 mg PO BID [facility] Last Admin: 05/03/24 08:04 Dose: 20 mg Trazodone HCl (Trazodone Hcl 50 Mg Tablet) 50 mg PO BEDTIME MRX1 PRN PRN Reason: Insomnia Last Admin: 05/02/24 20:57 Dose: 50 mg Zolpidem Tartrate (Zolpidem Tartrate 5 Mg Tablet) 5 mg PO BEDTIME [facility] Last Admin: 05/02/24 20:57 Dose: 5 mg Allergies Allergies Allergy/AdvReac Type Severity Reaction Status Date / Time bee pollen Allergy Severe Anaphylaxis Verified 04/24/24 15:03 levofloxacin [From Levaquin] Allergy Severe Itching Verified 04/24/24 15:03 enoxaparin [From Lovenox] Allergy Intermediate Rash Verified 04/24/24 15:03 Seasonal Allergies Allergy Mild Runny Nose Verified 04/24/24 15:03 venlafaxine [From Effexor] Allergy Mild Constipatio Verified 04/24/24 15:03 n Penicillins Allergy Unknown Unknown Verified 04/24/24 15:03 Assessment & Plan Assessment & Plan (1) Bipolar 1 disorder, depressed, severe: Status: Acute Code(s): F31.4 - Bipolar disorder, current episode depressed, severe, without psychotic features Plan HPI: Pt is a 68 yo female with hx of bipolar/bipolar depression, hx of ECT who presents for worsening depression. Pt says she was doing well following ECT, on medications. Last month her dog got diabetes and pt had to give dog insulin 2x a day; she started realizing her dog would eventually and depression set in. She stopped going out, stopped exercising (normally goes to gym 3x week), not eating, hard to sleep, not bathing or attending ADL's; Vraylar was increased but to no effect so lowered back to 3 mg. Pt started wishing she were , no wanting to live any more, though no intent or plan. Her brother insisted she come to hospital -continue home meds; strongly consider switching to Latuda (and discontinuing Vraylar); discussed ECT which has worked in past and is an option Hospital course: -pt remain depressed, hopeless; starting latuda; if not helpful will start ECT. Discussed behavioral activation 04/28 pt remains depressed, isolative. Agrees to having started Latuda and increasing dose. Pt medically cleared for eCT and pt says she is willing to get it 04/30 remains severely depressed; agrees to Latuda and to titrate; agrees to ECT 05/02 remains very depressed; agrees to ECT 05/03 remains?very?depressed;?flat,?isolative,?hopeless;?agrees?to?ECT?and?titration?of?Latuda -discussed?behavioral?activation?to?which?patient?agrees?but?seems?to?find?it?difficult?to?fulfill Plan: CV q15mn continue home meds Increase?to?Latuda 80mg daily; will titrate Continue?Latuda;?started?last?admission?however?did?not?seem?helpful;?will?likely?taper?and?DC Will?proceed?with?ECT Patient educated on: diagnosis, medication risk/benefits, ECT and therapeutic strategies Informed Consent: understands, does not understand and further education needed Reason for continued inpatient stay Substantial Risk for: inability to function Time Spent With Patient Time: Total time managing care of this patient today ____ minutes.
[2024-05-03] MEDS: Lurasidone HCl 80 MG TABLET PO (18:12)
[2024-05-03 20:00] VITALS: BP 112/71; PULSE 69; RESP 18; TEMP 36.6; O2SAT 94
[2024-05-03] MEDS: Zolpidem Tartrate 5 MG TABLET PO (20:50)
[2024-05-03] MEDS: Gabapentin 300 MG CAPSULE 600 MG PO (20:50)
[2024-05-03] MEDS: Mirtazapine 30 MG TABLET PO (20:51)
[2024-05-03] MEDS: traZODone HCL 50 MG TABLET PO (20:51)
[2024-05-03] MEDS: hydrOXYzine HCL 25 MG TABLET PO (20:52)
[2024-05-03] MEDS: Mineral Oil/Petrolatum,White 106 GM Tube 1 APPL TOPICAL (20:54)
[2024-05-04 08:52] VITALS: BP 128/74; PULSE 89; RESP 15; TEMP 37.5; O2SAT 97
[2024-05-04] MEDS: Cariprazine HCl 3 MG CAPSULE PO (08:54)
[2024-05-04] MEDS: Docusate Sodium 100 MG CAPSULE PO ×2 (08:54→20:17)
[2024-05-04] MEDS: Benztropine Mesylate 0.5 MG TABLET 0.25 MG PO ×2 (08:54→20:17)
[2024-05-04] MEDS: Omeprazole 20 MG CAPSULE.DR PO ×2 (08:54→20:17)
[2024-05-04] MEDS: Mineral Oil/Petrolatum,White 106 GM Tube 1 APPL TOPICAL (15:49)
[2024-05-04] MEDS: Lurasidone HCl 80 MG TABLET PO (18:19)
--- NOTE | 2024-05-04 18:56 | HO.PSYCHPN ---
Subjective Subjective Date of Service: 05/04/24 Reason For Visit: SI Interim History: Met?with?patient;?discussed?with?team? Patient?remains?severely?depressed,?isolative,?hopeless;?continues?to?say?nothing?will?work?but?agrees?to Treatment Mental Status Exam Mental Status Exam Narrative: Pt is alert and oriented; behavior is isolative, quiet, calm, isolate; patient is not in distress; dressed in hospital attire with unkempt hair; mood is described as depressed and affect congruent, downcast; eye contact appropriate; Speech is slowed, soft, monotone; psychomotor retardation present; thought process is organized and goal directed; Thought content is on hopelessness, likely not get better, passive SI; otherwise pertinent to relevant topics and without any delusional content, paranoid ideations or grandiosity; passive SI; no intention/plans; no HI; There is no evidence of perceptual disturbance. Patients insight and judgment impaired. Diagnostics Vital Signs (24Hr): Vital Signs - 24 hr 05/03/24 20:00 05/04/24 08:52 Temperature 97.9 F 99.5 F Pulse Rate 69 89 Respiratory Rate 18 15 Blood Pressure 112/71 128/74 Pulse Oximetry 94 97 Oxygen Delivery Method Room Air Room Air BMI result Body Mass Index 22.4 Labs 04/24/24 16:11 04/26/24 07:26 Medications Medications Current Medications Acetaminophen (Acetaminophen 325 Mg Tablet) 650 mg PO Q6H PRN PRN Reason: Headache/Pain Mild Scale (1-3) Al Hydroxide/Mg Hydroxide (Magnesium Hydrox/Alum Hydrox 30 Ml Oral.Susp) 30 ml PO Q6H PRN PRN Reason: Heartburn/Nausea Benztropine Mesylate (Benztropine Mesylate 0.5 Mg Tablet) 0.25 mg PO BID [facility] Last Admin: 05/04/24 08:54 Dose: 0.25 mg Cariprazine (Cariprazine Hcl 3 Mg Capsule) 3 mg PO DAILY [facility] Last Admin: 05/04/24 08:54 Dose: 3 mg Docusate Sodium (Docusate Sodium 100 Mg Capsule) 100 mg PO BID [facility] Last Admin: 05/04/24 08:54 Dose: 100 mg Gabapentin (Gabapentin 300 Mg Capsule) 600 mg PO BEDTIME [facility] Last Admin: 05/03/24 20:50 Dose: 600 mg Hydroxyzine HCl (Hydroxyzine Hcl 25 Mg Tablet) 25 mg PO Q6H PRN PRN Reason: Anxiety Last Admin: 05/03/24 20:52 Dose: 25 mg Lurasidone HCl (Lurasidone Hcl 80 Mg Tablet) 80 mg PO DAILY@1800 [facility] Last Admin: 05/04/24 18:19 Dose: 80 mg Magnesium Hydroxide (Milk Of Magnesia 30 Ml Oral.Susp) 30 ml PO DAILY PRN PRN Reason: Constipation Mirtazapine (Mirtazapine 30 Mg Tablet) 30 mg PO BEDTIME [facility] Last Admin: 05/03/24 20:51 Dose: 30 mg Multi-Ingred Cream/Lotion/Oil/Oint (Mineral Oil/Petrolatum,White 106 Gm Tube) 1 appl TOPICAL BID [facility]; Protocol Last Admin: 05/04/24 15:49 Dose: 1 appl Omeprazole (Omeprazole 20 Mg Capsule.Dr) 20 mg PO BID [facility] Last Admin: 05/04/24 08:54 Dose: 20 mg Trazodone HCl (Trazodone Hcl 50 Mg Tablet) 50 mg PO BEDTIME MRX1 PRN PRN Reason: Insomnia Last Admin: 05/03/24 20:51 Dose: 50 mg Zolpidem Tartrate (Zolpidem Tartrate 5 Mg Tablet) 5 mg PO BEDTIME [facility] Last Admin: 05/03/24 20:50 Dose: 5 mg Allergies Allergies Allergy/AdvReac Type Severity Reaction Status Date / Time bee pollen Allergy Severe Anaphylaxis Verified 04/24/24 15:03 levofloxacin [From Levaquin] Allergy Severe Itching Verified 04/24/24 15:03 enoxaparin [From Lovenox] Allergy Intermediate Rash Verified 04/24/24 15:03 Seasonal Allergies Allergy Mild Runny Nose Verified 04/24/24 15:03 venlafaxine [From Effexor] Allergy Mild Constipatio Verified 04/24/24 15:03 n Penicillins Allergy Unknown Unknown Verified 04/24/24 15:03 Assessment & Plan Assessment & Plan (1) Bipolar 1 disorder, depressed, severe: Status: Acute Code(s): F31.4 - Bipolar disorder, current episode depressed, severe, without psychotic features Plan HPI: Pt is a 68 yo female with hx of bipolar/bipolar depression, hx of ECT who presents for worsening depression. Pt says she was doing well following ECT, on medications. Last month her dog got diabetes and pt had to give dog insulin 2x a day; she started realizing her dog would eventually and depression set in. She stopped going out, stopped exercising (normally goes to gym 3x week), not eating, hard to sleep, not bathing or attending ADL's; Vraylar was increased but to no effect so lowered back to 3 mg. Pt started wishing she were , no wanting to live any more, though no intent or plan. Her brother insisted she come to hospital -continue home meds; strongly consider switching to Latuda (and discontinuing Vraylar); discussed ECT which has worked in past and is an option Hospital course: -pt remain depressed, hopeless; starting latuda; if not helpful will start ECT. Discussed behavioral activation 04/28 pt remains depressed, isolative. Agrees to having started Latuda and increasing dose. Pt medically cleared for eCT and pt says she is willing to get it 04/30 remains severely depressed; agrees to Latuda and to titrate; agrees to ECT 05/02 remains very depressed; agrees to ECT 05/03 remains?very?depressed;?flat,?isolative,?hopeless;?agrees?to?ECT?and?titration?of?Latuda -discussed?behavioral?activation?to?which?patient?agrees?but?seems?to?find?it?difficult?to?fulfill Plan: CV q15mn continue home meds Increase?to?Latuda 80mg daily; will titrate Continue?Latuda;?started?last?admission?however?did?not?seem?helpful;?will?likely?taper?and?DC Will?proceed?with?ECT Patient educated on: diagnosis, medication risk/benefits and ECT Informed Consent: understands Reason for continued inpatient stay Substantial Risk for: inability to function Time Spent With Patient Time: Total time managing care of this patient today ____ minutes.
[2024-05-04 20:15] VITALS: BP 120/70; PULSE 81; TEMP 36.1; O2SAT 97
[2024-05-04] MEDS: Gabapentin 300 MG CAPSULE 600 MG PO (20:17)
[2024-05-04] MEDS: Zolpidem Tartrate 5 MG TABLET PO (20:17)
[2024-05-04] MEDS: Mirtazapine 30 MG TABLET PO (20:17)
[2024-05-04] MEDS: Acetaminophen 325 MG TABLET 650 MG PO (22:21)
[2024-05-04] MEDS: traZODone HCL 50 MG TABLET PO (22:21)
[2024-05-04] MEDS: hydrOXYzine HCL 25 MG TABLET PO (22:21)
[2024-05-05] VITALS (10 sets, daily range): BP systolic 110–158; BP diastolic 54–98; PULSE 56–89; RESP 16–20; TEMP 36.1–36.4; O2SAT 96–97
--- NOTE | 2024-05-05 06:56 | P.CONAN_ITS ---
[facility] Active Problems Active Problems: All Active Problems Pre-op evaluation (Acute) Depression (Acute) Arthritis of right knee (Acute) Bipolar 1 disorder, depressed, severe (Acute) Elevated troponin (Acute) Chest discomfort (Acute) S/P cardiac catheterization (Acute) Bipolar 1 disorder (Acute) Varus deformity of knee (Acute) Osteoarthritis of left knee (Acute) Anxiety (Acute) GERD (gastroesophageal reflux disease) (Acute) Insomnia (Acute) Osteopenia (Acute) Murmur, cardiac (Acute) Status post total knee replacement, left (Acute) Acute deep vein thrombosis (DVT) of left tibial vein (Chronic) Past Medical History Medical History History of skin cancer Hx of bladder problems VITO (generalized anxiety disorder) Murmur, cardiac Hx of thyroid nodule Osteopenia Hx of skin cancer, basal cell Seasonal allergies Insomnia Constipation GERD (gastroesophageal reflux disease) Anxiety History of electroconvulsive therapy Bipolar 1 disorder Functional capacity: independent ambulation Family History Family History Mother Basal cell carcinoma (BCC) in situ of skin Osteoporosis Hyperlipidemia Father CAD (coronary artery disease) Alcoholism Sister Osteoporosis Depression Brother Cancer of tongue Cancer of skin Family history of problems with anesthesia: No Surgical History Surgical History Hx of colonoscopy H/O elbow surgery History of back surgery History of Problems with Anesthesia: No Social History Social History Household Members: Other Household Members Other:: Dog. Housing: Apartment Are you a primary day care assistant to a significant other at home: No Do you presently have visiting nurse or other home services: Yes Unable to assess alcohol history related to: Unable to respond Comment: 1:1 suoervision Patient Tobacco Use Status: Never used Tobacco Tobacco use type: Cigarette Years Smoked: 30+, now vapes Smoked in Last 30 Days: Yes e-Cigarette/Vaping Use: Currently Using Frequency of e-Cigarette/Vaping Use: Not a lot. Patient Interested in Nicotine Replacement: No Patient Given Instructions on How to Stop Smoking: No Second Hand Smoke Exposure: No Use of substances other than those prescribed or required for medical reasons: No Substance Use Type: Crack/Cocaine Currently Displaying Signs/Symptoms of Drug Intoxication Withdrawal: No Any prior treatment program specific to substance use: No Have you been hit, kicked, punched, or otherwise hurt by someone within the past year? If so, by whom?: No Do you feel safe in your current relationship?: No Current Relationship Is there a partner from a previous relationship who is making you feel unsafe now?: No Are you made to feel afraid or neglected: No Advance Directives: No Advance Directives Information Provided: No Do you have thoughts of harming others: None Do you have a plan to hurt others: No Plan Recently lost weight without trying: Yes How much weight loss: 2-13 pounds Eating poorly because of decreased appetite: Yes Nutrition screen score: 4 Nutrition Risks: No Nutritional Risk Patient : No : No Poor oral hygiene: No service: No Current occupational status: unemployed and retired 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 Sexual orientation: Straight/Heterosexual Meds Allergies Allergy/AdvReac Type Severity Reaction Status Date / Time bee pollen Allergy Severe Anaphylaxis Verified 04/24/24 15:03 levofloxacin [From Levaquin] Allergy Severe Itching Verified 04/24/24 15:03 enoxaparin [From Lovenox] Allergy Intermediate Rash Verified 04/24/24 15:03 Seasonal Allergies Allergy Mild Runny Nose Verified 04/24/24 15:03 venlafaxine [From Effexor] Allergy Mild Constipatio Verified 04/24/24 15:03 n Penicillins Allergy Unknown Unknown Verified 04/24/24 15:03 Active Medications: Current Medications Acetaminophen (Acetaminophen 325 Mg Tablet) 650 mg PO Q6H PRN PRN Reason: Headache/Pain Mild Scale (1-3) Last Admin: 05/04/24 22:21 Dose: 650 mg Al Hydroxide/Mg Hydroxide (Magnesium Hydrox/Alum Hydrox 30 Ml Oral.Susp) 30 ml PO Q6H PRN PRN Reason: Heartburn/Nausea Benztropine Mesylate (Benztropine Mesylate 0.5 Mg Tablet) 0.25 mg PO BID [facility] Last Admin: 05/04/24 20:17 Dose: 0.25 mg Cariprazine (Cariprazine Hcl 3 Mg Capsule) 3 mg PO DAILY [facility] Last Admin: 05/04/24 08:54 Dose: 3 mg Docusate Sodium (Docusate Sodium 100 Mg Capsule) 100 mg PO BID [facility] Last Admin: 05/04/24 20:17 Dose: 100 mg Gabapentin (Gabapentin 300 Mg Capsule) 600 mg PO BEDTIME [facility] Last Admin: 05/04/24 20:17 Dose: 600 mg Hydroxyzine HCl (Hydroxyzine Hcl 25 Mg Tablet) 25 mg PO Q6H PRN PRN Reason: Anxiety Last Admin: 05/04/24 22:21 Dose: 25 mg Lactated Ringer's (Lr) 1,000 mls @ 50 mls/hr IVCONT .Q20H [facility] Lurasidone HCl (Lurasidone Hcl 80 Mg Tablet) 80 mg PO DAILY@1800 [facility] Last Admin: 05/04/24 18:19 Dose: 80 mg Magnesium Hydroxide (Milk Of Magnesia 30 Ml Oral.Susp) 30 ml PO DAILY PRN PRN Reason: Constipation Mirtazapine (Mirtazapine 30 Mg Tablet) 30 mg PO BEDTIME [facility] Last Admin: 05/04/24 20:17 Dose: 30 mg Multi-Ingred Cream/Lotion/Oil/Oint (Mineral Oil/Petrolatum,White 106 Gm Tube) 1 appl TOPICAL BID [facility]; Protocol Last Admin: 05/04/24 20:18 Dose: Not Given Naloxone HCl (Naloxone Hcl 0.4 Mg/Ml Vial) 0.04 mg IVPUSH Q5M PRN PRN Reason: Excessive sedation or RR < 8 Omeprazole (Omeprazole 20 Mg Capsule.Dr) 20 mg PO BID [facility] Last Admin: 05/04/24 20:17 Dose: 20 mg Trazodone HCl (Trazodone Hcl 50 Mg Tablet) 50 mg PO BEDTIME MRX1 PRN PRN Reason: Insomnia Last Admin: 05/04/24 22:21 Dose: 50 mg Zolpidem Tartrate (Zolpidem Tartrate 5 Mg Tablet) 5 mg PO BEDTIME [facility] Last Admin: 05/04/24 20:17 Dose: 5 mg Home Medications ?Medication ?Instructions ?Recorded ?Confirmed ?Last Taken ?Type mirtazapine 30 mg tablet 30 mg PO BEDTIME 04/24/24 04/24/24 04/23/24 History omeprazole 20 mg capsule,delayed 20 mg PO DAILY@0630 04/25/24 04/25/24 Unknown History release thiamine HCl (vitamin B1) 100 mg 100 mg PO BID 04/25/24 04/25/24 Unknown History tablet (Vitamin B-1) Exam Height,Weight and Vital Signs: Height 5 ft 7 in Weight 64.954 kg Last Vital Signs Temp 97.3 F 05/05/24 06:34 Pulse 70 05/05/24 06:34 Resp 16 05/05/24 06:34 BP 137/76 05/05/24 06:34 Pulse Ox 97 05/05/24 06:34 O2 Del Method Room Air 05/05/24 06:34 Pertinent Lab Results Pertinent Lab Results: Laboratory Tests 04/24/24 04/24/24 04/26/24 16:11 19:56 07:26 WBC 5.8 RBC 4.34 Hgb 13.2 Hct 37.6 MCV 86.6 MCH 30.4 MCHC 35.1 H RDW 13.1 Plt Count 210 MPV 8.3 L Immature Gran % (Auto) 0.3 Neut % (Auto) 57.0 Lymph % (Auto) 32.2 Mcintosh % (Auto) 9.0 Eos % (Auto) 1.0 Baso % (Auto) 0.5 Lymph # (Auto) 1.9 Mcintosh # (Auto) 0.5 Eos # (Auto) 0.1 Baso # (Auto) 0.0 Abs Immat Gran (auto) 0.02 Absolute Neuts (auto) 3.3 Absolute Nucleated RBC 0.000 Nucleated RBC % (auto) 0.0 Sodium 139 139 Potassium 4.0 4.2 Chloride 106 107 Carbon Dioxide 26 25 Anion Gap 11 L 11 L BUN 15 21 H Creatinine 0.81 0.79 Estim Creat Clear Calc 66.4 68.1 Estimated GFR > 60 > 60 Random Glucose 101 Fasting Glucose 102 H Estimat Average Glucose 117 Hemoglobin A1c % 5.7 Calcium 9.6 9.7 Total Bilirubin 0.2 0.3 AST 21 18 ALT 11 12 Alkaline Phosphatase 91 90 Total Protein 6.8 6.7 Albumin 4.1 4.0 Triglycerides 83 Cholesterol 232 H LDL Cholesterol, Calc 157 H HDL Cholesterol 59 Vitamin B12 383 TSH 0.43 Urine Color Yellow Urine Appearance Clear Urine pH 6.5 Ur Specific [place] 1.020 Urine Protein Negative Urine Glucose (UA) Negative Urine Ketones Negative Urine Blood Negative Urine Nitrite Negative Ur Leukocyte Esterase Small (1+) H Urine RBC 0-2 Urine WBC 6-10 H Ur Squamous Epith Cells 0-2 Urine Bacteria None Seen Hyaline Casts 0-2 Salicylates < 5.0 L Urine Opiates Screen Not Detected Ur Buprenorphine Scrn Not Detected Ur Oxycodone Screen Not Detected Urine Methadone Screen Not Detected Urine Fentanyl Screen Not Detected Acetaminophen < 3 Ur Barbiturates Screen Not Detected Ur Phencyclidine Scrn Not Detected Ur Amphetamines Screen Not Detected U Benzodiazepines Scrn Not Detected Urine Cocaine Screen Not Detected U Marijuana (THC) Screen Not Detected Ethyl Alcohol < 10 Airway Mallampati Class: II (edentulous) TM Dist: >3cm Neck ROM: Full Heart: rrr Lungs: cta Assessment and Plan Assessment Anesthesia Assessment: Anesthesia Plan Discussed and Chart Reviewed Final Anesthetic Review Family History of Problems with Anesthesia: No History of Problems with Anesthesia: No NPO: Yes ASA Class: III Final Preanesthetic Review: No Changes in Pt Med Stat, Meds/Allgs Chart Reviewed and Consent Obtained/Reviewed Patient Risk: Intermediate Procedure Risk: Intermediate Anesthetic Plan Anesthetic Plan: GA Disposition: Standard PACU
[2024-05-05] MEDS: Lactated Ringers 1,000 ML 50 ML IVCONT (07:05)
--- NOTE | 2024-05-05 07:07 | MHC.SHP ---
Pre-Procedural Eval Section A - 24 Hr Update-Section A only Date of Service: 05/05/24 The patient is an INPATIENT: Yes Changes since office visit: No Cold of Flu in the past 2 weeks, No New Medical Problems, No Changes in Medication and No Patient answered all questions The patient has been examined within 24 hours of the surgical procedure. The History & Physical has been completed within 30 days and I have reviewed it.: Yes Section B - Complete if H&P > 30 days Chief Complaint: SI Details of Present Illness: Long hx of bipolar disorder, N-[place] with ECT on December 2023, relapsed with depression, now inpatient. Relevant Family History (Specify if Yes): No Relevant Social History: Alcohol Use Present Medications: see Short Stay Collaborative assessment Medical History: No relevant PMH History of Previous Operations: No relevant previous surgery Allergies: Allergies Allergy/AdvReac Type Severity Reaction Status Date / Time bee pollen Allergy Severe Anaphylaxis Verified 04/24/24 15:03 levofloxacin [From Levaquin] Allergy Severe Itching Verified 04/24/24 15:03 enoxaparin [From Lovenox] Allergy Intermediate Rash Verified 04/24/24 15:03 Seasonal Allergies Allergy Mild Runny Nose Verified 04/24/24 15:03 venlafaxine [From Effexor] Allergy Mild Constipatio Verified 04/24/24 15:03 n Penicillins Allergy Unknown Unknown Verified 04/24/24 15:03 Review of Systems Sugical H&P ROS: Negative: Constitution, Cardiovascular, Respiratory, Neurological, Psychiatric, Hem-Onc, Allergic/Immunologic, Gastrointestinal, Genitourinary, Musculoskeletal, Integumentary, Endocrine and Eyes/Ears/Nose/Throat Exam Surgical H&P Exam: Normal: HEENT, Normal: Heart, Normal: Lungs, Normal: Extremities, Normal: Abdomen, Normal: Skin and Normal: Neurological Plan Diagnosis/Plan: Unchanged I have reviewed the history and physical and performed a pertinent physical examination on my patient. No changes have occurred unless specified. Time Spent With Patient Time: Total time managing care of this patient today __20__ minutes.
--- NOTE | 2024-05-05 07:43 | HO.ECTPROC ---
ECT Procedure Note Diagnosis/Treatment Date of Service: 05/05/24 Diagnosis: Bipolar disorder Current Treatment Number: 1 Treatment: Series Interval Clinical Notes: The patient is very well known by this team, she had ECT last December with iimprovement of her mood but didn't follow outpatient ECT, relapsed and she is now back incounts include [facility] beds [facility]. ECT done as usual, no complications, woke up well. Time: Total time managing care of this patient today ____ minutes. ECT Settings Device: THYMATRON DGx Electrode Placement: Bifrontal Program/Pulse Width: 0.50 Energy Percent: 100 Seizure Duration By EEG (in seconds): 35 By Motor Observation (in seconds): 29 Medications Administration General Anesthetic: Etomidate (12) Muscle Relaxant: Succinylcholine (100) Ancillary Medications Cardiovascular Medications: Glycopyrrolate Airway Management Airway Management: Bag Mask Ventilation Treatment Recommendations No Changes Recommended: No change Pt Tolerated Procedure w/o Issue: Yes
[2024-05-05] MEDS: Cariprazine HCl 3 MG CAPSULE PO (09:09)
[2024-05-05] MEDS: Docusate Sodium 100 MG CAPSULE PO ×2 (09:09→20:07)
[2024-05-05] MEDS: Benztropine Mesylate 0.5 MG TABLET 0.25 MG PO ×2 (09:10→20:07)
[2024-05-05] MEDS: Mineral Oil/Petrolatum,White 106 GM Tube 1 APPL TOPICAL ×2 (09:10→20:39)
[2024-05-05] MEDS: Omeprazole 20 MG CAPSULE.DR PO ×2 (09:10→20:07)
[2024-05-05] MEDS: Lurasidone HCl 80 MG TABLET PO (18:06)
[2024-05-05] MEDS: Mirtazapine 30 MG TABLET PO (20:07)
[2024-05-05] MEDS: Zolpidem Tartrate 5 MG TABLET PO (20:07)
[2024-05-05] MEDS: Gabapentin 300 MG CAPSULE 600 MG PO (20:07)
[2024-05-05] MEDS: Acetaminophen 325 MG TABLET 650 MG PO (20:55)
[2024-05-05] MEDS: traZODone HCL 50 MG TABLET PO (20:55)
[2024-05-05] MEDS: hydrOXYzine HCL 25 MG TABLET PO (20:56)
[2024-05-06 08:05] VITALS: BP 132/72; PULSE 79; RESP 18; TEMP 36.6; O2SAT 98
[2024-05-06] MEDS: Benztropine Mesylate 0.5 MG TABLET 0.25 MG PO ×2 (08:44→20:27)
[2024-05-06] MEDS: Omeprazole 20 MG CAPSULE.DR PO ×2 (08:44→20:27)
[2024-05-06] MEDS: Docusate Sodium 100 MG CAPSULE PO ×2 (08:45→20:27)
[2024-05-06] MEDS: Cariprazine HCl 3 MG CAPSULE PO (08:45)
--- NOTE | 2024-05-06 10:29 | P.PNPSI_ITS ---
Subjective Subjective Reason For Visit: SI Diagnostics Vital Signs (24Hr): Vital Signs - 24 hr 05/05/24 20:05 05/06/24 08:05 Temperature 97.6 F 97.9 F Pulse Rate 83 79 Respiratory Rate 16 18 Blood Pressure 110/73 132/72 Pulse Oximetry 97 98 Oxygen Delivery Method Room Air Room Air BMI result Body Mass Index 22.4 Labs 04/24/24 16:11 04/26/24 07:26 Medications Medications Current Medications Acetaminophen (Acetaminophen 325 Mg Tablet) 650 mg PO Q6H PRN PRN Reason: Headache/Pain Mild Scale (1-3) Last Admin: 05/05/24 20:55 Dose: 650 mg Al Hydroxide/Mg Hydroxide (Magnesium Hydrox/Alum Hydrox 30 Ml Oral.Susp) 30 ml PO Q6H PRN PRN Reason: Heartburn/Nausea Benztropine Mesylate (Benztropine Mesylate 0.5 Mg Tablet) 0.25 mg PO BID [facility] Last Admin: 05/06/24 08:44 Dose: 0.25 mg Cariprazine (Cariprazine Hcl 3 Mg Capsule) 3 mg PO DAILY [facility] Last Admin: 05/06/24 08:45 Dose: 3 mg Docusate Sodium (Docusate Sodium 100 Mg Capsule) 100 mg PO BID [facility] Last Admin: 05/06/24 08:45 Dose: 100 mg Gabapentin (Gabapentin 300 Mg Capsule) 600 mg PO BEDTIME [facility] Last Admin: 05/05/24 20:07 Dose: 600 mg Hydroxyzine HCl (Hydroxyzine Hcl 25 Mg Tablet) 25 mg PO Q6H PRN PRN Reason: Anxiety Last Admin: 05/05/24 20:56 Dose: 25 mg Lurasidone HCl (Lurasidone Hcl 80 Mg Tablet) 80 mg PO DAILY@1800 [facility] Last Admin: 05/05/24 18:06 Dose: 80 mg Magnesium Hydroxide (Milk Of Magnesia 30 Ml Oral.Susp) 30 ml PO DAILY PRN PRN Reason: Constipation Mirtazapine (Mirtazapine 30 Mg Tablet) 30 mg PO BEDTIME [facility] Last Admin: 05/05/24 20:07 Dose: 30 mg Multi-Ingred Cream/Lotion/Oil/Oint (Mineral Oil/Petrolatum,White 106 Gm Tube) 1 appl TOPICAL BID [facility]; Protocol Last Admin: 05/06/24 08:46 Dose: Not Given Omeprazole (Omeprazole 20 Mg Capsule.Dr) 20 mg PO BID [facility] Last Admin: 05/06/24 08:44 Dose: 20 mg Trazodone HCl (Trazodone Hcl 50 Mg Tablet) 50 mg PO BEDTIME MRX1 PRN PRN Reason: Insomnia Last Admin: 05/05/24 20:55 Dose: 50 mg Zolpidem Tartrate (Zolpidem Tartrate 5 Mg Tablet) 5 mg PO BEDTIME [facility] Last Admin: 05/05/24 20:07 Dose: 5 mg Allergies Allergies Allergy/AdvReac Type Severity Reaction Status Date / Time bee pollen Allergy Severe Anaphylaxis Verified 04/24/24 15:03 levofloxacin [From Levaquin] Allergy Severe Itching Verified 04/24/24 15:03 enoxaparin [From Lovenox] Allergy Intermediate Rash Verified 04/24/24 15:03 Seasonal Allergies Allergy Mild Runny Nose Verified 04/24/24 15:03 venlafaxine [From Effexor] Allergy Mild Constipatio Verified 04/24/24 15:03 n Penicillins Allergy Unknown Unknown Verified 04/24/24 15:03 Assessment & Plan Assessment & Plan (1) Bipolar 1 disorder, depressed, severe: Status: Acute Code(s): F31.4 - Bipolar disorder, current episode depressed, severe, without psychotic features Time Spent With Patient Time: Total time managing care of this patient today ____ minutes.
--- NOTE | 2024-05-06 10:56 | HO.POSTANES ---
Post Anesthesia Evaluation Post Anesthesia Evaluation Date of Service: 05/05/24 Vital Signs: Vital Signs Temp Pulse Resp BP Pulse Ox O2 Del Method 05/06/24 08:05 97.9 F 79 18 132/72 98 Room Air Anesthesia: General Mental Status: Awake Pain Control: Satisfactory Nausea/Vomiting: None Hydration: Adequate Anesthesia-Related Issues: No Anes. Related Issues
[2024-05-06] MEDS: Lurasidone HCl 80 MG TABLET PO (18:05)
[2024-05-06 20:00] VITALS: BP 131/62; PULSE 78; RESP 18; TEMP 36.4; O2SAT 96
[2024-05-06] MEDS: Gabapentin 300 MG CAPSULE 600 MG PO (20:27)
[2024-05-06] MEDS: hydrOXYzine HCL 25 MG TABLET PO (20:27)
[2024-05-06] MEDS: Mirtazapine 30 MG TABLET PO (20:27)
[2024-05-06] MEDS: Zolpidem Tartrate 5 MG TABLET PO (20:27)
[2024-05-06] MEDS: traZODone HCL 50 MG TABLET PO (20:27)
[2024-05-07] VITALS (8 sets, daily range): BP systolic 110–137; BP diastolic 63–91; PULSE 69–86; RESP 17–20; TEMP 36.2–36.7; O2SAT 95–96
--- NOTE | 2024-05-07 14:16 | P.CONAN_ITS ---
[facility] Active Problems Active Problems: All Active Problems Pre-op evaluation (Acute) Depression (Acute) Arthritis of right knee (Acute) Bipolar 1 disorder, depressed, severe (Acute) Elevated troponin (Acute) Chest discomfort (Acute) S/P cardiac catheterization (Acute) Bipolar 1 disorder (Acute) Varus deformity of knee (Acute) Osteoarthritis of left knee (Acute) Anxiety (Acute) GERD (gastroesophageal reflux disease) (Acute) Insomnia (Acute) Osteopenia (Acute) Murmur, cardiac (Acute) Status post total knee replacement, left (Acute) Acute deep vein thrombosis (DVT) of left tibial vein (Chronic) Past Medical History Medical History History of skin cancer Hx of bladder problems VITO (generalized anxiety disorder) Murmur, cardiac Hx of thyroid nodule Osteopenia Hx of skin cancer, basal cell Seasonal allergies Insomnia Constipation GERD (gastroesophageal reflux disease) Anxiety History of electroconvulsive therapy Bipolar 1 disorder Functional capacity: independent ambulation Family History Family History Mother Basal cell carcinoma (BCC) in situ of skin Osteoporosis Hyperlipidemia Father CAD (coronary artery disease) Alcoholism Sister Osteoporosis Depression Brother Cancer of tongue Cancer of skin Family history of problems with anesthesia: No Surgical History Surgical History Hx of colonoscopy H/O elbow surgery History of back surgery History of Problems with Anesthesia: No Social History Social History Household Members: Other Household Members Other:: Dog. Housing: Apartment Are you a primary healthcare educator to a significant other at home: No Do you presently have visiting nurse or other home services: Yes Unable to assess alcohol history related to: Unable to respond Comment: 1:1 suoervision Patient Tobacco Use Status: Never used Tobacco Tobacco use type: Cigarette Years Smoked: 30+, now vapes Smoked in Last 30 Days: Yes e-Cigarette/Vaping Use: Currently Using Frequency of e-Cigarette/Vaping Use: Not a lot. Patient Interested in Nicotine Replacement: No Patient Given Instructions on How to Stop Smoking: No Second Hand Smoke Exposure: No Use of substances other than those prescribed or required for medical reasons: No Substance Use Type: Crack/Cocaine Currently Displaying Signs/Symptoms of Drug Intoxication Withdrawal: No Any prior treatment program specific to substance use: No Have you been hit, kicked, punched, or otherwise hurt by someone within the past year? If so, by whom?: No Do you feel safe in your current relationship?: No Current Relationship Is there a partner from a previous relationship who is making you feel unsafe now?: No Are you made to feel afraid or neglected: No Advance Directives: No Advance Directives Information Provided: No Do you have thoughts of harming others: None Do you have a plan to hurt others: No Plan Recently lost weight without trying: Yes How much weight loss: 2-13 pounds Eating poorly because of decreased appetite: Yes Nutrition screen score: 4 Nutrition Risks: No Nutritional Risk Patient : No : No Poor oral hygiene: No service: No Current occupational status: unemployed and retired 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 Sexual orientation: Straight/Heterosexual Meds Allergies Allergy/AdvReac Type Severity Reaction Status Date / Time bee pollen Allergy Severe Anaphylaxis Verified 04/24/24 15:03 levofloxacin [From Levaquin] Allergy Severe Itching Verified 04/24/24 15:03 enoxaparin [From Lovenox] Allergy Intermediate Rash Verified 04/24/24 15:03 Seasonal Allergies Allergy Mild Runny Nose Verified 04/24/24 15:03 venlafaxine [From Effexor] Allergy Mild Constipatio Verified 04/24/24 15:03 n Penicillins Allergy Unknown Unknown Verified 04/24/24 15:03 Active Medications: Current Medications Acetaminophen (Acetaminophen 325 Mg Tablet) 650 mg PO Q6H PRN PRN Reason: Headache/Pain Mild Scale (1-3) Last Admin: 05/05/24 20:55 Dose: 650 mg Al Hydroxide/Mg Hydroxide (Magnesium Hydrox/Alum Hydrox 30 Ml Oral.Susp) 30 ml PO Q6H PRN PRN Reason: Heartburn/Nausea Benztropine Mesylate (Benztropine Mesylate 0.5 Mg Tablet) 0.25 mg PO BID [facility] Last Admin: 05/07/24 10:05 Dose: Not Given Cariprazine (Cariprazine Hcl 3 Mg Capsule) 3 mg PO DAILY [facility] Last Admin: 05/07/24 10:05 Dose: Not Given Docusate Sodium (Docusate Sodium 100 Mg Capsule) 100 mg PO BID [facility] Last Admin: 05/07/24 10:05 Dose: Not Given Gabapentin (Gabapentin 300 Mg Capsule) 600 mg PO BEDTIME [facility] Last Admin: 05/06/24 20:27 Dose: 600 mg Hydroxyzine HCl (Hydroxyzine Hcl 25 Mg Tablet) 25 mg PO Q6H PRN PRN Reason: Anxiety Last Admin: 05/06/24 20:27 Dose: 25 mg Lurasidone HCl (Lurasidone Hcl 80 Mg Tablet) 80 mg PO DAILY@1800 [facility] Last Admin: 05/06/24 18:05 Dose: 80 mg Magnesium Hydroxide (Milk Of Magnesia 30 Ml Oral.Susp) 30 ml PO DAILY PRN PRN Reason: Constipation Mirtazapine (Mirtazapine 30 Mg Tablet) 30 mg PO BEDTIME [facility] Last Admin: 05/06/24 20:27 Dose: 30 mg Multi-Ingred Cream/Lotion/Oil/Oint (Mineral Oil/Petrolatum,White 106 Gm Tube) 1 appl TOPICAL BID [facility]; Protocol Last Admin: 05/07/24 10:05 Dose: Not Given Omeprazole (Omeprazole 20 Mg Capsule.Dr) 20 mg PO BID [facility] Last Admin: 05/07/24 10:06 Dose: Not Given Trazodone HCl (Trazodone Hcl 50 Mg Tablet) 50 mg PO BEDTIME MRX1 PRN PRN Reason: Insomnia Last Admin: 05/06/24 20:27 Dose: 50 mg Zolpidem Tartrate (Zolpidem Tartrate 5 Mg Tablet) 5 mg PO BEDTIME [facility] Last Admin: 05/06/24 20:27 Dose: 5 mg Home Medications ?Medication ?Instructions ?Recorded ?Confirmed ?Last Taken ?Type mirtazapine 30 mg tablet 30 mg PO BEDTIME 04/24/24 04/24/24 04/23/24 History omeprazole 20 mg capsule,delayed 20 mg PO DAILY@0630 04/25/24 04/25/24 Unknown History release thiamine HCl (vitamin B1) 100 mg 100 mg PO BID 04/25/24 04/25/24 Unknown History tablet (Vitamin B-1) Exam Height,Weight and Vital Signs: Height 5 ft 7 in Weight 64.954 kg Last Vital Signs Temp 97.9 F 05/07/24 07:48 Pulse 74 05/07/24 07:48 Resp 17 05/07/24 07:48 BP 126/67 05/07/24 07:48 Pulse Ox 95 05/07/24 07:48 O2 Del Method Room Air 05/07/24 07:48 Pertinent Lab Results Pertinent Lab Results: Laboratory Tests 04/24/24 04/24/24 04/26/24 16:11 19:56 07:26 WBC 5.8 RBC 4.34 Hgb 13.2 Hct 37.6 MCV 86.6 MCH 30.4 MCHC 35.1 H RDW 13.1 Plt Count 210 MPV 8.3 L Immature Gran % (Auto) 0.3 Neut % (Auto) 57.0 Lymph % (Auto) 32.2 Haines % (Auto) 9.0 Eos % (Auto) 1.0 Baso % (Auto) 0.5 Lymph # (Auto) 1.9 [place]aines # (Auto) 0.5 Eos # (Auto) 0.1 Baso # (Auto) 0.0 Abs Immat Gran (auto) 0.02 Absolute Neuts (auto) 3.3 Absolute Nucleated RBC 0.000 Nucleated RBC % (auto) 0.0 Sodium 139 139 Potassium 4.0 4.2 Chloride 106 107 Carbon Dioxide 26 25 Anion Gap 11 L 11 L BUN 15 21 H Creatinine 0.81 0.79 Estim Creat Clear Calc 66.4 68.1 Estimated GFR > 60 > 60 Random Glucose 101 Fasting Glucose 102 H Estimat Average Glucose 117 Hemoglobin A1c % 5.7 Calcium 9.6 9.7 Total Bilirubin 0.2 0.3 AST 21 18 ALT 11 12 Alkaline Phosphatase 91 90 Total Protein 6.8 6.7 Albumin 4.1 4.0 Triglycerides 83 Cholesterol 232 H LDL Cholesterol, Calc 157 H HDL Cholesterol 59 Vitamin B12 383 TSH 0.43 Urine Color Yellow Urine Appearance Clear Urine pH 6.5 Ur Specific [place] 1.020 Urine Protein Negative Urine Glucose (UA) Negative Urine Ketones Negative Urine Blood Negative Urine Nitrite Negative Ur Leukocyte Esterase Small (1+) H Urine RBC 0-2 Urine WBC 6-10 H Ur Squamous Epith Cells 0-2 Urine Bacteria None Seen Hyaline Casts 0-2 Salicylates < 5.0 L Urine Opiates Screen Not Detected Ur Buprenorphine Scrn Not Detected Ur Oxycodone Screen Not Detected Urine Methadone Screen Not Detected Urine Fentanyl Screen Not Detected Acetaminophen < 3 Ur Barbiturates Screen Not Detected Ur Phencyclidine Scrn Not Detected Ur Amphetamines Screen Not Detected U Benzodiazepines Scrn Not Detected Urine Cocaine Screen Not Detected U Marijuana (THC) Screen Not Detected Ethyl Alcohol < 10 Airway Mallampati Class: III TM Dist: >3cm Neck ROM: Full Partial: Upper and Lower Assessment and Plan Assessment Anesthesia Assessment: Anesthesia Plan Discussed and Chart Reviewed Final Anesthetic Review Family History of Problems with Anesthesia: No History of Problems with Anesthesia: No NPO: Yes ASA Class: III Final Preanesthetic Review: No Changes in Pt Med Stat, Meds/Allgs Chart Reviewed, Consent Obtained/Reviewed and Anes Risks/Benef Reviewed Patient Risk: Intermediate Procedure Risk: Low Anesthetic Plan Anesthetic Plan: GA Disposition: Standard PACU
--- NOTE | 2024-05-07 14:25 | MHC.SHP ---
Pre-Procedural Eval Section A - 24 Hr Update-Section A only Date of Service: 05/07/24 The patient is an INPATIENT: Yes Changes since office visit: No Cold of Flu in the past 2 weeks, No New Medical Problems, No Changes in Medication and No Patient answered all questions The patient has been examined within 24 hours of the surgical procedure. The History & Physical has been completed within 30 days and I have reviewed it.: Yes Section B - Complete if H&P > 30 days Chief Complaint: SI Allergies: Allergies Allergy/AdvReac Type Severity Reaction Status Date / Time bee pollen Allergy Severe Anaphylaxis Verified 04/24/24 15:03 levofloxacin [From Levaquin] Allergy Severe Itching Verified 04/24/24 15:03 enoxaparin [From Lovenox] Allergy Intermediate Rash Verified 04/24/24 15:03 Seasonal Allergies Allergy Mild Runny Nose Verified 04/24/24 15:03 venlafaxine [From Effexor] Allergy Mild Constipatio Verified 04/24/24 15:03 n Penicillins Allergy Unknown Unknown Verified 04/24/24 15:03 Plan I have reviewed the history and physical and performed a pertinent physical examination on my patient. No changes have occurred unless specified. Time Spent With Patient Time: Total time managing care of this patient today ____ minutes.
--- NOTE | 2024-05-07 15:08 | HO.ECTPROC ---
ECT Procedure Note Diagnosis/Treatment Date of Service: 05/07/24 Diagnosis: Bipolar disorder Previous ECT Date: 05/05/24 Current Treatment Number: 2 Treatment: Series Interval Clinical Notes: The patient reported no improvement of her mood yet, still dysphoric. No side effects with preivuious ECT. ECT done as usula, no complications, woke up well Time: Total time managing care of this patient today __20__ minutes. ECT Settings Device: THYMATRON DGx Electrode Placement: Bifrontal Program/Pulse Width: 0.50 Energy Percent: 100 Seizure Duration By EEG (in seconds): 31 By Motor Observation (in seconds): 45 Medications Administration General Anesthetic: Etomidate (12) Muscle Relaxant: Succinylcholine (80) Ancillary Medications Miscillaneous Medications: Midazolam (2 mg after ECT) Airway Management Airway Management: Bag Mask Ventilation Treatment Recommendations No Changes Recommended: No change Pt Tolerated Procedure w/o Issue: Yes
--- NOTE | 2024-05-07 16:00 | P.PNPSI_ITS ---
Subjective Subjective Date of Service: 05/07/24 Reason For Visit: SI Subjective Notes: Conditional Voluntary Interim History: The nursing reported the patient had been dysphoric, no response with ECT yet. On interview the patient denies new symptoms still dysphoric. We had ECT today. Mental Status Exam Mental Status Exam Patient Appearance: Unkempt Patient Orientation: Person Level of Consciousness: Awake Patient Behavior: Appropriate and Passive Mood Description: Withdrawn Affect Description: Blunted Patient Cognition Impaired: Yes Ability to Follow Directions: Fair Speech Pattern: Clear Hallucinations: None Delusions: Ideas of Reference Thought Process: Distracted and Slowed Thinking Thought Content: positive for [place] and positive for Poverty of Content Judgement: Poor Diagnostics Vital Signs (24Hr): Vital Signs - 24 hr 05/06/24 20:00 05/07/24 07:48 05/07/24 14:45 Temperature 97.6 F 97.9 F 97.7 F Pulse Rate 78 74 69 Respiratory Rate 18 17 20 Blood Pressure 131/62 126/67 Pulse Oximetry 96 95 95 Oxygen Delivery Method Room Air Room Air Room Air 05/07/24 15:18 05/07/24 15:23 05/07/24 15:28 Temperature 97.2 F Pulse Rate 80 86 79 Respiratory Rate 20 20 20 Blood Pressure 137/81 110/79 115/91 H Pulse Oximetry 96 96 96 Oxygen Delivery Method Room Air Room Air Room Air 05/07/24 15:33 05/07/24 15:44 Temperature 97.1 F 97.3 F Pulse Rate 73 72 Respiratory Rate 20 20 Blood Pressure 118/81 135/81 Pulse Oximetry 96 96 Oxygen Delivery Method Room Air Room Air BMI result Body Mass Index 22.4 Labs 04/24/24 16:11 04/26/24 07:26 Medications Medications Current Medications Acetaminophen (Acetaminophen 325 Mg Tablet) 650 mg PO Q6H PRN PRN Reason: Headache/Pain Mild Scale (1-3) Last Admin: 05/05/24 20:55 Dose: 650 mg Al Hydroxide/Mg Hydroxide (Magnesium Hydrox/Alum Hydrox 30 Ml Oral.Susp) 30 ml PO Q6H PRN PRN Reason: Heartburn/Nausea Benztropine Mesylate (Benztropine Mesylate 0.5 Mg Tablet) 0.25 mg PO BID [facility] Last Admin: 05/07/24 10:05 Dose: Not Given Cariprazine (Cariprazine Hcl 3 Mg Capsule) 3 mg PO DAILY [facility] Last Admin: 05/07/24 10:05 Dose: Not Given Docusate Sodium (Docusate Sodium 100 Mg Capsule) 100 mg PO BID [facility] Last Admin: 05/07/24 10:05 Dose: Not Given Gabapentin (Gabapentin 300 Mg Capsule) 600 mg PO BEDTIME [facility] Last Admin: 05/06/24 20:27 Dose: 600 mg Hydroxyzine HCl (Hydroxyzine Hcl 25 Mg Tablet) 25 mg PO Q6H PRN PRN Reason: Anxiety Last Admin: 05/06/24 20:27 Dose: 25 mg Lurasidone HCl (Lurasidone Hcl 20 Mg Tablet) 100 mg PO DAILY@1800 [facility] Magnesium Hydroxide (Milk Of Magnesia 30 Ml Oral.Susp) 30 ml PO DAILY PRN PRN Reason: Constipation Mirtazapine (Mirtazapine 30 Mg Tablet) 30 mg PO BEDTIME [facility] Last Admin: 05/06/24 20:27 Dose: 30 mg Multi-Ingred Cream/Lotion/Oil/Oint (Mineral Oil/Petrolatum,White 106 Gm Tube) 1 appl TOPICAL BID [facility]; Protocol Last Admin: 05/07/24 10:05 Dose: Not Given Omeprazole (Omeprazole 20 Mg Capsule.Dr) 20 mg PO BID [facility] Last Admin: 05/07/24 10:06 Dose: Not Given Trazodone HCl (Trazodone Hcl 50 Mg Tablet) 50 mg PO BEDTIME MRX1 PRN PRN Reason: Insomnia Last Admin: 05/06/24 20:27 Dose: 50 mg Zolpidem Tartrate (Zolpidem Tartrate 5 Mg Tablet) 5 mg PO BEDTIME [facility] Last Admin: 05/06/24 20:27 Dose: 5 mg Allergies Allergies Allergy/AdvReac Type Severity Reaction Status Date / Time bee pollen Allergy Severe Anaphylaxis Verified 04/24/24 15:03 levofloxacin [From Levaquin] Allergy Severe Itching Verified 04/24/24 15:03 enoxaparin [From Lovenox] Allergy Intermediate Rash Verified 04/24/24 15:03 Seasonal Allergies Allergy Mild Runny Nose Verified 04/24/24 15:03 venlafaxine [From Effexor] Allergy Mild Constipatio Verified 04/24/24 15:03 n Penicillins Allergy Unknown Unknown Verified 04/24/24 15:03 Assessment & Plan Assessment & Plan (1) Bipolar 1 disorder, depressed, severe: Status: Acute Code(s): F31.4 - Bipolar disorder, current episode depressed, severe, without psychotic features Plan The patient is an elderly female with a past history of bipolar disorder and alcohol use disorder who was in this facility a few weeks ago the respond very well with ECT but she did not compliant with continuation of care. She relapsed and was readmitted. At this moment she is very depressed with suicidal ideation and severe psychomotor retardation. She agreed to restart ECT. Plan 1. Continue with ECT. 2. Continue with regular and other antipsychotics. 3. The patient is a far has not responded with the 1st ECT usually she responds fairly fast we will reassess after the 3rd or 4th ECT. Reason for continued inpatient stay Substantial Risk for: inability to function, rapid decompensation and med/psych decompensation Time Spent With Patient Time: Total time managing care of this patient today __20__ minutes.
[2024-05-07] MEDS: Lurasidone HCl 20 MG TABLET 100 MG PO (17:12)
[2024-05-07] MEDS: hydrOXYzine HCL 25 MG TABLET PO (18:01)
[2024-05-07] MEDS: Omeprazole 20 MG CAPSULE.DR PO (20:24)
[2024-05-07] MEDS: Gabapentin 300 MG CAPSULE 600 MG PO (20:24)
[2024-05-07] MEDS: Benztropine Mesylate 0.5 MG TABLET 0.25 MG PO (20:24)
[2024-05-07] MEDS: Acetaminophen 325 MG TABLET 650 MG PO (20:24)
[2024-05-07] MEDS: Docusate Sodium 100 MG CAPSULE PO (20:24)
[2024-05-07] MEDS: Zolpidem Tartrate 5 MG TABLET PO (20:25)
[2024-05-07] MEDS: Mirtazapine 30 MG TABLET PO (20:25)
[2024-05-08 08:00] VITALS: BP 97/58; PULSE 77; RESP 17; TEMP 36.6; O2SAT 95
--- NOTE | 2024-05-08 09:04 | HO.POSTANES ---
Post Anesthesia Evaluation Post Anesthesia Evaluation Date of Service: 05/07/24 Vital Signs: Vital Signs Temp Pulse Resp BP Pulse Ox O2 Del Method 05/08/24 08:00 97.9 F 77 17 97/58 L 95 Room Air Anesthesia: General Mental Status: Awake Pain Control: Satisfactory Nausea/Vomiting: None Hydration: Adequate Anesthesia-Related Issues: No Anes. Related Issues
[2024-05-08] MEDS: Omeprazole 20 MG CAPSULE.DR PO ×2 (09:20→20:20)
[2024-05-08] MEDS: Docusate Sodium 100 MG CAPSULE PO ×2 (09:20→20:20)
[2024-05-08] MEDS: Benztropine Mesylate 0.5 MG TABLET 0.25 MG PO ×2 (09:20→20:20)
[2024-05-08] MEDS: Cariprazine HCl 3 MG CAPSULE PO (09:21)
--- NOTE | 2024-05-08 13:01 | HO.PSYCHPN ---
Subjective Subjective Date of Service: 05/05/24 Reason For Visit: SI Interim History: Late?entry?note?for?patient?seen?on?for;?discussed?with?team Patient?had?ECT?today.??Denies?any?side?effects.??Says?ECT?did?not?work?and?remains?hopeless. Still?she?agrees?to?get?current?treatment?plan?and?will?continue?with?ECT?and?Latuda?titration Agrees?to?come?off?Vraylar?? Patient?said Mental Status Exam Mental Status Exam Narrative: Pt is alert and oriented; behavior is isolative, quiet, calm, isolate; patient is not in distress; dressed in hospital attire with unkempt hair; mood is described as depressed and affect congruent, downcast; eye contact appropriate; Speech is slowed, soft, monotone; psychomotor retardation present; thought process is organized and goal directed; Thought content is on hopelessness, likely not get better, passive SI; otherwise pertinent to relevant topics and without any delusional content, paranoid ideations or grandiosity; passive SI; no intention/plans; no HI; There is no evidence of perceptual disturbance. Patients insight and judgment impaired. Diagnostics Vital Signs (24Hr): Vital Signs - 24 hr 05/07/24 14:45 05/07/24 15:18 05/07/24 15:23 Temperature 97.7 F 97.2 F Pulse Rate 69 80 86 Respiratory Rate 20 20 20 Blood Pressure 137/81 110/79 Pulse Oximetry 95 96 96 Oxygen Delivery Method Room Air Room Air Room Air 05/07/24 15:28 05/07/24 15:33 05/07/24 15:44 Temperature 97.1 F 97.3 F Pulse Rate 79 73 72 Respiratory Rate 20 20 20 Blood Pressure 115/91 H 118/81 135/81 Pulse Oximetry 96 96 96 Oxygen Delivery Method Room Air Room Air Room Air 05/07/24 20:00 05/08/24 08:00 Temperature 98.1 F 97.9 F Pulse Rate 78 77 Respiratory Rate 18 17 Blood Pressure 113/63 97/58 L Pulse Oximetry 95 95 Oxygen Delivery Method Room Air Room Air BMI result Body Mass Index 22.4 Labs 04/24/24 16:11 04/26/24 07:26 Medications Medications Current Medications Acetaminophen (Acetaminophen 325 Mg Tablet) 650 mg PO Q6H PRN PRN Reason: Headache/Pain Mild Scale (1-3) Last Admin: 05/07/24 20:24 Dose: 650 mg Al Hydroxide/Mg Hydroxide (Magnesium Hydrox/Alum Hydrox 30 Ml Oral.Susp) 30 ml PO Q6H PRN PRN Reason: Heartburn/Nausea Benztropine Mesylate (Benztropine Mesylate 0.5 Mg Tablet) 0.25 mg PO BID [facility] Last Admin: 05/08/24 09:20 Dose: 0.25 mg Cariprazine (Cariprazine Hcl 3 Mg Capsule) 3 mg PO DAILY [facility] Last Admin: 05/08/24 09:21 Dose: 3 mg Docusate Sodium (Docusate Sodium 100 Mg Capsule) 100 mg PO BID [facility] Last Admin: 05/08/24 09:20 Dose: 100 mg Gabapentin (Gabapentin 300 Mg Capsule) 600 mg PO BEDTIME [facility] Last Admin: 05/07/24 20:24 Dose: 600 mg Hydroxyzine HCl (Hydroxyzine Hcl 25 Mg Tablet) 25 mg PO Q6H PRN PRN Reason: Anxiety Last Admin: 05/07/24 18:01 Dose: 25 mg Lurasidone HCl (Lurasidone Hcl 20 Mg Tablet) 100 mg PO DAILY@1800 [facility] Last Admin: 05/07/24 17:12 Dose: 100 mg Magnesium Hydroxide (Milk Of Magnesia 30 Ml Oral.Susp) 30 ml PO DAILY PRN PRN Reason: Constipation Mirtazapine (Mirtazapine 30 Mg Tablet) 30 mg PO BEDTIME [facility] Last Admin: 05/07/24 20:25 Dose: 30 mg Multi-Ingred Cream/Lotion/Oil/Oint (Mineral Oil/Petrolatum,White 106 Gm Tube) 1 appl TOPICAL BID [facility]; Protocol Last Admin: 05/08/24 09:22 Dose: Not Given Omeprazole (Omeprazole 20 Mg Capsule.Dr) 20 mg PO BID [facility] Last Admin: 05/08/24 09:20 Dose: 20 mg Trazodone HCl (Trazodone Hcl 50 Mg Tablet) 50 mg PO BEDTIME MRX1 PRN PRN Reason: Insomnia Last Admin: 05/06/24 20:27 Dose: 50 mg Zolpidem Tartrate (Zolpidem Tartrate 5 Mg Tablet) 5 mg PO BEDTIME [facility] Last Admin: 05/07/24 20:25 Dose: 5 mg Allergies Allergies Allergy/AdvReac Type Severity Reaction Status Date / Time bee pollen Allergy Severe Anaphylaxis Verified 04/24/24 15:03 levofloxacin [From Levaquin] Allergy Severe Itching Verified 04/24/24 15:03 enoxaparin [From Lovenox] Allergy Intermediate Rash Verified 04/24/24 15:03 Seasonal Allergies Allergy Mild Runny Nose Verified 04/24/24 15:03 venlafaxine [From Effexor] Allergy Mild Constipatio Verified 04/24/24 15:03 n Penicillins Allergy Unknown Unknown Verified 04/24/24 15:03 Assessment & Plan Assessment & Plan (1) Bipolar 1 disorder, depressed, severe: Status: Acute Code(s): F31.4 - Bipolar disorder, current episode depressed, severe, without psychotic features Plan HPI: Pt is a 68 yo female with hx of bipolar/bipolar depression, hx of ECT who presents for worsening depression. Pt says she was doing well following ECT, on medications. Last month her dog got diabetes and pt had to give dog insulin 2x a day; she started realizing her dog would eventually and depression set in. She stopped going out, stopped exercising (normally goes to gym 3x week), not eating, hard to sleep, not bathing or attending ADL's; Vraylar was increased but to no effect so lowered back to 3 mg. Pt started wishing she were , no wanting to live any more, though no intent or plan. Her brother insisted she come to hospital -continue home meds; strongly consider switching to Latuda (and discontinuing Vraylar); discussed ECT which has worked in past and is an option Hospital course: -pt remain depressed, hopeless; starting latuda; if not helpful will start ECT. Discussed behavioral activation 04/28 pt remains depressed, isolative. Agrees to having started Latuda and increasing dose. Pt medically cleared for eCT and pt says she is willing to get it 04/30 remains severely depressed; agrees to Latuda and to titrate; agrees to ECT 05/02 remains very depressed; agrees to ECT 05/03 remains?very?depressed;?flat,?isolative,?hopeless;?agrees?to?ECT?and?titration?of?Latuda -discussed?behavioral?activation?to?which?patient?agrees?but?seems?to?find?it?difficult?to?fulfill 05/05?received?ECT;?remains?depressed,?hopeless?but?agrees?to?continue?with?plan Plan: CV q15mn continue home meds ECT #2 pending 05/07 -npo Increased?to?Latuda 80mg daily; will titrate Continue Vraylar;?started?last?admission?however?did?not?seem?helpful;?will?likely?taper?and?DC Patient educated on: diagnosis, medication risk/benefits and ECT Informed Consent: understands, does not understand and further education needed Reason for continued inpatient stay Substantial Risk for: inability to function Time Spent With Patient Time: Total time managing care of this patient today ____ minutes.
--- NOTE | 2024-05-08 13:05 | HO.PSYCHPN ---
Subjective Subjective Date of Service: 05/06/24 Reason For Visit: SI Interim History: Late?entry?note?for?patient?seen?on?05/06;?discussed?with?team No?change?in?presentation;?depressed,?isolative?however?when?asked?how?she?is?doing,?she?says it?is?going Which?is?more?than?before.??She?Again?tells?press writer nothing?will?help.' Again?patient?willing?to?listen?to To?press writer's?explanation?and?agrees?to?continue?with?ECT?and?Latuda?titration Mental Status Exam Mental Status Exam Narrative: Pt is alert and oriented; behavior is isolative, quiet, calm, isolate; patient is not in distress; dressed in hospital attire with unkempt hair; mood is described as it's going and affect congruent, downcast; eye contact appropriate; Speech is slowed, soft, monotone; psychomotor retardation present; thought process is organized and goal directed; Thought content is on hopelessness, likely not get better, passive SI; otherwise pertinent to relevant topics and without any delusional content, paranoid ideations or grandiosity; passive SI; no intention/plans; no HI; There is no evidence of perceptual disturbance. Patients insight and judgment impaired. Diagnostics Vital Signs (24Hr): Vital Signs - 24 hr 05/07/24 14:45 05/07/24 15:18 05/07/24 15:23 Temperature 97.7 F 97.2 F Pulse Rate 69 80 86 Respiratory Rate 20 20 20 Blood Pressure 137/81 110/79 Pulse Oximetry 95 96 96 Oxygen Delivery Method Room Air Room Air Room Air 05/07/24 15:28 05/07/24 15:33 05/07/24 15:44 Temperature 97.1 F 97.3 F Pulse Rate 79 73 72 Respiratory Rate 20 20 20 Blood Pressure 115/91 H 118/81 135/81 Pulse Oximetry 96 96 96 Oxygen Delivery Method Room Air Room Air Room Air 05/07/24 20:00 05/08/24 08:00 Temperature 98.1 F 97.9 F Pulse Rate 78 77 Respiratory Rate 18 17 Blood Pressure 113/63 97/58 L Pulse Oximetry 95 95 Oxygen Delivery Method Room Air Room Air BMI result Body Mass Index 22.4 Labs 04/24/24 16:11 04/26/24 07:26 Medications Medications Current Medications Acetaminophen (Acetaminophen 325 Mg Tablet) 650 mg PO Q6H PRN PRN Reason: Headache/Pain Mild Scale (1-3) Last Admin: 05/07/24 20:24 Dose: 650 mg Al Hydroxide/Mg Hydroxide (Magnesium Hydrox/Alum Hydrox 30 Ml Oral.Susp) 30 ml PO Q6H PRN PRN Reason: Heartburn/Nausea Benztropine Mesylate (Benztropine Mesylate 0.5 Mg Tablet) 0.25 mg PO BID [facility] Last Admin: 05/08/24 09:20 Dose: 0.25 mg Cariprazine (Cariprazine Hcl 3 Mg Capsule) 3 mg PO DAILY [facility] Last Admin: 05/08/24 09:21 Dose: 3 mg Docusate Sodium (Docusate Sodium 100 Mg Capsule) 100 mg PO BID [facility] Last Admin: 05/08/24 09:20 Dose: 100 mg Gabapentin (Gabapentin 300 Mg Capsule) 600 mg PO BEDTIME [facility] Last Admin: 05/07/24 20:24 Dose: 600 mg Hydroxyzine HCl (Hydroxyzine Hcl 25 Mg Tablet) 25 mg PO Q6H PRN PRN Reason: Anxiety Last Admin: 05/07/24 18:01 Dose: 25 mg Lurasidone HCl (Lurasidone Hcl 20 Mg Tablet) 100 mg PO DAILY@1800 [facility] Last Admin: 05/07/24 17:12 Dose: 100 mg Magnesium Hydroxide (Milk Of Magnesia 30 Ml Oral.Susp) 30 ml PO DAILY PRN PRN Reason: Constipation Mirtazapine (Mirtazapine 30 Mg Tablet) 30 mg PO BEDTIME [facility] Last Admin: 05/07/24 20:25 Dose: 30 mg Multi-Ingred Cream/Lotion/Oil/Oint (Mineral Oil/Petrolatum,White 106 Gm Tube) 1 appl TOPICAL BID [facility]; Protocol Last Admin: 05/08/24 09:22 Dose: Not Given Omeprazole (Omeprazole 20 Mg Capsule.Dr) 20 mg PO BID [facility] Last Admin: 05/08/24 09:20 Dose: 20 mg Trazodone HCl (Trazodone Hcl 50 Mg Tablet) 50 mg PO BEDTIME MRX1 PRN PRN Reason: Insomnia Last Admin: 05/06/24 20:27 Dose: 50 mg Zolpidem Tartrate (Zolpidem Tartrate 5 Mg Tablet) 5 mg PO BEDTIME [facility] Last Admin: 05/07/24 20:25 Dose: 5 mg Allergies Allergies Allergy/AdvReac Type Severity Reaction Status Date / Time bee pollen Allergy Severe Anaphylaxis Verified 04/24/24 15:03 levofloxacin [From Levaquin] Allergy Severe Itching Verified 04/24/24 15:03 enoxaparin [From Lovenox] Allergy Intermediate Rash Verified 04/24/24 15:03 Seasonal Allergies Allergy Mild Runny Nose Verified 04/24/24 15:03 venlafaxine [From Effexor] Allergy Mild Constipatio Verified 04/24/24 15:03 n Penicillins Allergy Unknown Unknown Verified 04/24/24 15:03 Assessment & Plan Assessment & Plan (1) Bipolar 1 disorder, depressed, severe: Status: Acute Code(s): F31.4 - Bipolar disorder, current episode depressed, severe, without psychotic features Plan HPI: Pt is a 68 yo female with hx of bipolar/bipolar depression, hx of ECT who presents for worsening depression. Pt says she was doing well following ECT, on medications. Last month her dog got diabetes and pt had to give dog insulin 2x a day; she started realizing her dog would eventually and depression set in. She stopped going out, stopped exercising (normally goes to gym 3x week), not eating, hard to sleep, not bathing or attending ADL's; Vraylar was increased but to no effect so lowered back to 3 mg. Pt started wishing she were , no wanting to live any more, though no intent or plan. Her brother insisted she come to hospital -continue home meds; strongly consider switching to Latuda (and discontinuing Vraylar); discussed ECT which has worked in past and is an option Hospital course: -pt remain depressed, hopeless; starting latuda; if not helpful will start ECT. Discussed behavioral activation 04/28 pt remains depressed, isolative. Agrees to having started Latuda and increasing dose. Pt medically cleared for eCT and pt says she is willing to get it 04/30 remains severely depressed; agrees to Latuda and to titrate; agrees to ECT 05/02 remains very depressed; agrees to ECT 05/03 remains?very?depressed;?flat,?isolative,?hopeless;?agrees?to?ECT?and?titration?of?Latuda -discussed?behavioral?activation?to?which?patient?agrees?but?seems?to?find?it?difficult?to?fulfill 05/05?received?ECT;?remains?depressed,?hopeless?but?agrees?to?continue?with?plan 05/06?no?change?in?presentation;?remains?depressed?and?hopeless.??Agrees?to?continue?plan Plan: CV q15mn continue home meds ECT #2 pending 05/07 -npo Increased?to Latuda 80mg daily; will titrate Continue Vraylar;?started?last?admission?however?did?not?seem?helpful;?will?likely?taper?and?DC Patient educated on: diagnosis, medication risk/benefits and ECT Informed Consent: understands, does not understand and further education needed Reason for continued inpatient stay Substantial Risk for: inability to function Time Spent With Patient Time: Total time managing care of this patient today ____ minutes.
[2024-05-08 13:46] VITALS: BMI 22.7
--- NOTE | 2024-05-08 16:19 | P.PNPSI_ITS ---
Subjective Subjective Date of Service: 05/08/24 Reason For Visit: SI Subjective Notes: Conditional Voluntary Interim History: Pt slept through the night. Pt reports feeling depressed, hopeless. reports intermittent SI but denies any plan. still thinks ECt may not help her mood. upset about conversations about her needing more assistance at home and placement in rest home. Medication Compliance: Yes Review of Systems Review of Systems Constitutional : No Weight loss, No Fever, No Chills, No Night Sweats, No Fatigue, No Malaise ENT/Mouth : No Hearing loss, No Ear Pain, No Nasal Congestion, No Sinus Pain, No Hoarseness, No sore throat, No Rhinorrhea, No Swallowing Difficulty Eyes: No Eye Pain, No Swelling, No Redness, No Foreign Body, No Discharge, No Vision Changes Cardiovascular : No Chest Pain, No SOB, No Dyspnea on Exertion, No Orthopnea, No Edema, No Palpitations Respiratory : No Cough, No Sputum, No Wheezing, No Smoke Exposure, No Dyspnea Gastrointestinal : No Nausea, No Vomiting, No Diarrhea, No Constipation, No abdominal Pain, No Hematochezia, No Melena Genitourinary : no irregular bleeding, No Dysuria, No Urinary Frequency, No Hematuria, No Urinary Incontinence, No Urgency, No Flank Pain, No Urinary Flow Changes, No Hesitancy Musculoskeletal : No joint pain, No Myalgias, No Joint Swelling Skin : No Skin Lesions, No rash Neuro : No Weakness, No Numbness, No Paresthesias, No Loss of Consciousness, No Dizziness, No Headache Psych : No Anxiety/Panic, complaining of depression, states she does not want to wake up again. Denies any plans for SI or HI Heme/Lymph: No Bruising, No Bleeding,No Lymphadenopathy Endocrine : No Polyuria, No Polydipsia, No Temperature Intolerance Constitutional: Denies chills, Denies fatigue, Denies fever(s) and Denies headache(s) Eyes: Denies change in vision Denies dizziness, Denies headache(s), Denies nasal congestion and Denies nasal discharge Cardiovascular: Denies chest pain, Denies lightheadedness and Denies dyspnea Respiratory: Denies cough and Denies dyspnea Gastrointestinal: Denies constipation, Denies diarrhea, Denies nausea and Denies vomiting Musculoskeletal: Denies arthralgias and Denies muscle weakness Skin/Breast: Denies rash Denies confusion, Denies dizziness and Denies headache(s) Psychiatric: Reports as per HPI and Denies confusion Endocrine: Denies fatigue Hematologic/Lymphatic: Denies easy bleeding and Denies easy bruising Allergic/Immunologic: Denies urticaria Mental Status Exam Mental Status Exam Narrative: Pt is alert and oriented; behavior is isolative, quiet, calm, isolate; patient is not in distress; dressed in hospital attire with unkempt hair; mood is described as it's going and affect congruent, downcast; eye contact appropriate; Speech is slowed, soft, monotone; psychomotor retardation present; thought process is organized and goal directed; Thought content is on hopelessness, likely not get better, passive SI; otherwise pertinent to relevant topics and without any delusional content, paranoid ideations or grandiosity; passive SI; no intention/plans; no HI; There is no evidence of perceptual disturbance. Patients insight and judgment impaired. Diagnostics Vital Signs (24Hr): Vital Signs - 24 hr 05/07/24 20:00 05/08/24 08:00 Temperature 98.1 F 97.9 F Pulse Rate 78 77 Respiratory Rate 18 17 Blood Pressure 113/63 97/58 L Pulse Oximetry 95 95 Oxygen Delivery Method Room Air Room Air BMI result Body Mass Index 22.7 Labs 04/24/24 16:11 04/26/24 07:26 Medications Medications Current Medications Acetaminophen (Acetaminophen 325 Mg Tablet) 650 mg PO Q6H PRN PRN Reason: Headache/Pain Mild Scale (1-3) Last Admin: 05/07/24 20:24 Dose: 650 mg Al Hydroxide/Mg Hydroxide (Magnesium Hydrox/Alum Hydrox 30 Ml Oral.Susp) 30 ml PO Q6H PRN PRN Reason: Heartburn/Nausea Benztropine Mesylate (Benztropine Mesylate 0.5 Mg Tablet) 0.25 mg PO BID [facility] Last Admin: 05/08/24 09:20 Dose: 0.25 mg Cariprazine (Cariprazine Hcl 3 Mg Capsule) 3 mg PO DAILY [facility] Last Admin: 05/08/24 09:21 Dose: 3 mg Docusate Sodium (Docusate Sodium 100 Mg Capsule) 100 mg PO BID [facility] Last Admin: 05/08/24 09:20 Dose: 100 mg Gabapentin (Gabapentin 300 Mg Capsule) 600 mg PO BEDTIME [facility] Last Admin: 05/07/24 20:24 Dose: 600 mg Hydroxyzine HCl (Hydroxyzine Hcl 25 Mg Tablet) 25 mg PO Q6H PRN PRN Reason: Anxiety Last Admin: 05/07/24 18:01 Dose: 25 mg Lurasidone HCl (Lurasidone Hcl 20 Mg Tablet) 100 mg PO DAILY@1800 [facility] Last Admin: 05/07/24 17:12 Dose: 100 mg Magnesium Hydroxide (Milk Of Magnesia 30 Ml Oral.Susp) 30 ml PO DAILY PRN PRN Reason: Constipation Mirtazapine (Mirtazapine 30 Mg Tablet) 30 mg PO BEDTIME [facility] Last Admin: 05/07/24 20:25 Dose: 30 mg Multi-Ingred Cream/Lotion/Oil/Oint (Mineral Oil/Petrolatum,White 106 Gm Tube) 1 appl TOPICAL BID [facility]; Protocol Last Admin: 05/08/24 09:22 Dose: Not Given Omeprazole (Omeprazole 20 Mg Capsule.Dr) 20 mg PO BID [facility] Last Admin: 05/08/24 09:20 Dose: 20 mg Trazodone HCl (Trazodone Hcl 50 Mg Tablet) 50 mg PO BEDTIME MRX1 PRN PRN Reason: Insomnia Last Admin: 05/06/24 20:27 Dose: 50 mg Zolpidem Tartrate (Zolpidem Tartrate 5 Mg Tablet) 5 mg PO BEDTIME [facility] Last Admin: 05/07/24 20:25 Dose: 5 mg Allergies Allergies Allergy/AdvReac Type Severity Reaction Status Date / Time bee pollen Allergy Severe Anaphylaxis Verified 04/24/24 15:03 levofloxacin [From Levaquin] Allergy Severe Itching Verified 04/24/24 15:03 enoxaparin [From Lovenox] Allergy Intermediate Rash Verified 04/24/24 15:03 Seasonal Allergies Allergy Mild Runny Nose Verified 04/24/24 15:03 venlafaxine [From Effexor] Allergy Mild Constipatio Verified 04/24/24 15:03 n Penicillins Allergy Unknown Unknown Verified 04/24/24 15:03 Assessment & Plan Assessment & Plan (1) Bipolar 1 disorder, depressed, severe: Status: Acute Code(s): F31.4 - Bipolar disorder, current episode depressed, severe, without psychotic features Plan The patient is an elderly female with a past history of bipolar disorder and alcohol use disorder who was in this facility a few weeks ago the respond very well with ECT but she did not compliant with continuation of care. She relapsed and was readmitted. At this moment she is very depressed with suicidal ideation and severe psychomotor retardation. She agreed to restart ECT. Plan 05/08 continue tx. plan to d/c kenyattar and keep latuda. continue ECT Reason for continued inpatient stay Substantial Risk for: inability to function Time Spent With Patient Time: Total time managing care of this patient today ____ minutes.
[2024-05-08] MEDS: Lurasidone HCl 20 MG TABLET 100 MG PO (17:26)
[2024-05-08 19:57] VITALS: BP 100/62; PULSE 79; RESP 18; TEMP 36.6; O2SAT 97
[2024-05-08] MEDS: Gabapentin 300 MG CAPSULE 600 MG PO (20:20)
[2024-05-08] MEDS: Zolpidem Tartrate 5 MG TABLET PO (20:20)
[2024-05-08] MEDS: Acetaminophen 325 MG TABLET 650 MG PO (20:20)
[2024-05-08] MEDS: Mirtazapine 30 MG TABLET PO (20:20)
[2024-05-09] VITALS (10 sets, daily range): BP systolic 116–151; BP diastolic 61–83; PULSE 64–85; RESP 16–18; TEMP 36.1–36.6; O2SAT 95–97
[2024-05-09] MEDS: Lactated Ringers 1,000 ML 100 ML IVCONT (07:29)
--- NOTE | 2024-05-09 07:38 | HO.ANESPROP2 ---
HPI - Anesthesia Eval Consult details Narrative: 68yo female patient for ECT PMFSH Active Problems Active Problems: All Active Problems Pre-op evaluation (Acute) Depression (Acute) Arthritis of right knee (Acute) Bipolar 1 disorder, depressed, severe (Acute) Elevated troponin (Acute) Chest discomfort (Acute) S/P cardiac catheterization (Acute) Bipolar 1 disorder (Acute) Varus deformity of knee (Acute) Osteoarthritis of left knee (Acute) Anxiety (Acute) GERD (gastroesophageal reflux disease) (Acute) Insomnia (Acute) Osteopenia (Acute) Murmur, cardiac (Acute) Status post total knee replacement, left (Acute) Acute deep vein thrombosis (DVT) of left tibial vein (Chronic) Past Medical History Medical History History of skin cancer Hx of bladder problems VITO (generalized anxiety disorder) Murmur, cardiac Hx of thyroid nodule Osteopenia Hx of skin cancer, basal cell Seasonal allergies Insomnia Constipation GERD (gastroesophageal reflux disease) Anxiety History of electroconvulsive therapy Bipolar 1 disorder Functional capacity: independent ambulation Family History Family History Mother Basal cell carcinoma (BCC) in situ of skin Osteoporosis Hyperlipidemia Father CAD (coronary artery disease) Alcoholism Sister Osteoporosis Depression Brother Cancer of tongue Cancer of skin Family history of problems with anesthesia: No Surgical History Surgical History Hx of colonoscopy H/O elbow surgery History of back surgery History of Problems with Anesthesia: No Social History Social History Household Members: Other Household Members Other:: Dog. Housing: Apartment Are you a primary care asst to a significant other at home: No Do you presently have visiting nurse or other home services: Yes Unable to assess alcohol history related to: Unable to respond Patient Tobacco Use Status: Never used Tobacco Tobacco use type: Cigarette Years Smoked: 30+, now vapes Smoked in Last 30 Days: Yes e-Cigarette/Vaping Use: Currently Using Frequency of e-Cigarette/Vaping Use: Not a lot. Patient Interested in Nicotine Replacement: No Patient Given Instructions on How to Stop Smoking: No Second Hand Smoke Exposure: No Use of substances other than those prescribed or required for medical reasons: No Substance Use Type: Crack/Cocaine Currently Displaying Signs/Symptoms of Drug Intoxication Withdrawal: No Any prior treatment program specific to substance use: No Have you been hit, kicked, punched, or otherwise hurt by someone within the past year? If so, by whom?: No Do you feel safe in your current relationship?: No Current Relationship Is there a partner from a previous relationship who is making you feel unsafe now?: No Are you made to feel afraid or neglected: No Advance Directives: No Advance Directives Information Provided: No Do you have thoughts of harming others: None Do you have a plan to hurt others: No Plan Recently lost weight without trying: Yes How much weight loss: 2-13 pounds Eating poorly because of decreased appetite: Yes Nutrition screen score: 4 Nutrition Risks: No Nutritional Risk Patient : No : No Poor oral hygiene: No service: No Current occupational status: unemployed and retired 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 Sexual orientation: Straight/Heterosexual Meds Allergies Allergy/AdvReac Type Severity Reaction Status Date / Time bee pollen Allergy Severe Anaphylaxis Verified 04/24/24 15:03 levofloxacin [From Levaquin] Allergy Severe Itching Verified 04/24/24 15:03 enoxaparin [From Lovenox] Allergy Intermediate Rash Verified 04/24/24 15:03 Seasonal Allergies Allergy Mild Runny Nose Verified 04/24/24 15:03 venlafaxine [From Effexor] Allergy Mild Constipatio Verified 04/24/24 15:03 n Penicillins Allergy Unknown Unknown Verified 04/24/24 15:03 Active Medications: Current Medications Acetaminophen (Acetaminophen 325 Mg Tablet) 650 mg PO Q6H PRN PRN Reason: Headache/Pain Mild Scale (1-3) Last Admin: 05/08/24 20:20 Dose: 650 mg Al Hydroxide/Mg Hydroxide (Magnesium Hydrox/Alum Hydrox 30 Ml Oral.Susp) 30 ml PO Q6H PRN PRN Reason: Heartburn/Nausea Benztropine Mesylate (Benztropine Mesylate 0.5 Mg Tablet) 0.25 mg PO BID [facility] Last Admin: 05/08/24 20:20 Dose: 0.25 mg Docusate Sodium (Docusate Sodium 100 Mg Capsule) 100 mg PO BID [facility] Last Admin: 05/08/24 20:20 Dose: 100 mg Gabapentin (Gabapentin 300 Mg Capsule) 600 mg PO BEDTIME [facility] Last Admin: 05/08/24 20:20 Dose: 600 mg Hydroxyzine HCl (Hydroxyzine Hcl 25 Mg Tablet) 25 mg PO Q6H PRN PRN Reason: Anxiety Last Admin: 05/07/24 18:01 Dose: 25 mg Lactated Ringer's (Lr) 1,000 mls @ 100 mls/hr IVCONT .Q10H [facility] Last Admin: 05/09/24 07:29 Dose: 100 mls/hr Lurasidone HCl (Lurasidone Hcl 20 Mg Tablet) 100 mg PO DAILY@1800 [facility] Last Admin: 05/08/24 17:26 Dose: 100 mg Magnesium Hydroxide (Milk Of Magnesia 30 Ml Oral.Susp) 30 ml PO DAILY PRN PRN Reason: Constipation Mirtazapine (Mirtazapine 30 Mg Tablet) 30 mg PO BEDTIME [facility] Last Admin: 05/08/24 20:20 Dose: 30 mg Multi-Ingred Cream/Lotion/Oil/Oint (Mineral Oil/Petrolatum,White 106 Gm Tube) 1 appl TOPICAL BID [facility]; Protocol Last Admin: 05/08/24 20:53 Dose: Not Given Omeprazole (Omeprazole 20 Mg Capsule.Dr) 20 mg PO BID [facility] Last Admin: 05/08/24 20:20 Dose: 20 mg Trazodone HCl (Trazodone Hcl 50 Mg Tablet) 50 mg PO BEDTIME MRX1 PRN PRN Reason: Insomnia Last Admin: 05/06/24 20:27 Dose: 50 mg Zolpidem Tartrate (Zolpidem Tartrate 5 Mg Tablet) 5 mg PO BEDTIME [facility] Last Admin: 05/08/24 20:20 Dose: 5 mg Home Medications ?Medication ?Instructions ?Recorded ?Confirmed ?Last Taken ?Type mirtazapine 30 mg tablet 30 mg PO BEDTIME 04/24/24 04/24/24 04/23/24 History omeprazole 20 mg capsule,delayed 20 mg PO DAILY@0630 04/25/24 04/25/24 Unknown History release thiamine HCl (vitamin B1) 100 mg 100 mg PO BID 04/25/24 04/25/24 Unknown History tablet (Vitamin B-1) Exam Height,Weight and Vital Signs: Height 5 ft 7 in Weight 65.68 kg Last Vital Signs Temp 97.7 F 05/09/24 07:16 Pulse 64 05/09/24 07:16 Resp 16 05/09/24 07:16 BP 128/75 05/09/24 07:16 Pulse Ox 97 05/09/24 07:16 O2 Del Method Room Air 05/09/24 07:16 Pertinent Lab Results Pertinent Lab Results: Laboratory Tests 04/24/24 04/24/24 04/26/24 16:11 19:56 07:26 WBC 5.8 RBC 4.34 Hgb 13.2 Hct 37.6 MCV 86.6 MCH 30.4 MCHC 35.1 H RDW 13.1 Plt Count 210 MPV 8.3 L Immature Gran % (Auto) 0.3 Neut % (Auto) 57.0 Lymph % (Auto) 32.2 [place] % (Auto) 9.0 Eos % (Auto) 1.0 Baso % (Auto) 0.5 Lymph # (Auto) 1.9 [place] # (Auto) 0.5 Eos # (Auto) 0.1 Baso # (Auto) 0.0 Abs Immat Gran (auto) 0.02 Absolute Neuts (auto) 3.3 Absolute Nucleated RBC 0.000 Nucleated RBC % (auto) 0.0 Sodium 139 139 Potassium 4.0 4.2 Chloride 106 107 Carbon Dioxide 26 25 Anion Gap 11 L 11 L BUN 15 21 H Creatinine 0.81 0.79 Estim Creat Clear Calc 66.4 68.1 Estimated GFR > 60 > 60 Random Glucose 101 Fasting Glucose 102 H Estimat Average Glucose 117 Hemoglobin A1c % 5.7 Calcium 9.6 9.7 Total Bilirubin 0.2 0.3 AST 21 18 ALT 11 12 Alkaline Phosphatase 91 90 Total Protein 6.8 6.7 Albumin 4.1 4.0 Triglycerides 83 Cholesterol 232 H LDL Cholesterol, Calc 157 H HDL Cholesterol 59 Vitamin B12 383 TSH 0.43 Urine Color Yellow Urine Appearance Clear Urine pH 6.5 Ur Specific Dennis 1.020 Urine Protein Negative Urine Glucose (UA) Negative Urine Ketones Negative Urine Blood Negative Urine Nitrite Negative Ur Leukocyte Esterase Small (1+) H Urine RBC 0-2 Urine WBC 6-10 H Ur Squamous Epith Cells 0-2 Urine Bacteria None Seen Hyaline Casts 0-2 Salicylates < 5.0 L Urine Opiates Screen Not Detected Ur Buprenorphine Scrn Not Detected Ur Oxycodone Screen Not Detected Urine Methadone Screen Not Detected Urine Fentanyl Screen Not Detected Acetaminophen < 3 Ur Barbiturates Screen Not Detected Ur Phencyclidine Scrn Not Detected Ur Amphetamines Screen Not Detected U Benzodiazepines Scrn Not Detected Urine Cocaine Screen Not Detected U Marijuana (THC) Screen Not Detected Ethyl Alcohol < 10 Airway Mallampati Class: III TM Dist: >3cm Neck ROM: Full Partial: Upper and Lower Loose/Missing/Broken Teeth: Yes (Many teeth missing. Denies broken or loose teeth) Heart: RRR Lungs: CTAB Assessment and Plan Assessment Anesthesia Assessment: Anesthesia Plan Discussed and Chart Reviewed Final Anesthetic Review Family History of Problems with Anesthesia: No History of Problems with Anesthesia: No NPO: Yes ASA Class: III Final Preanesthetic Review: No Changes in Pt Med Stat, Meds/Allgs Chart Reviewed, Consent Obtained/Reviewed and Anes Risks/Benef Reviewed Patient Risk: Intermediate Procedure Risk: Intermediate Anesthetic Plan Anesthetic Plan: GA Disposition: Standard PACU
--- NOTE | 2024-05-09 08:12 | MHC.SHP ---
Pre-Procedural Eval Section A - 24 Hr Update-Section A only Date of Service: 05/09/24 The patient is an INPATIENT: Yes Changes since office visit: No Cold of Flu in the past 2 weeks, No New Medical Problems, No Changes in Medication and No Patient answered all questions The patient has been examined within 24 hours of the surgical procedure. The History & Physical has been completed within 30 days and I have reviewed it.: Yes Section B - Complete if H&P > 30 days Chief Complaint: SI Allergies: Allergies Allergy/AdvReac Type Severity Reaction Status Date / Time bee pollen Allergy Severe Anaphylaxis Verified 04/24/24 15:03 levofloxacin [From Levaquin] Allergy Severe Itching Verified 04/24/24 15:03 enoxaparin [From Lovenox] Allergy Intermediate Rash Verified 04/24/24 15:03 Seasonal Allergies Allergy Mild Runny Nose Verified 04/24/24 15:03 venlafaxine [From Effexor] Allergy Mild Constipatio Verified 04/24/24 15:03 n Penicillins Allergy Unknown Unknown Verified 04/24/24 15:03 Plan I have reviewed the history and physical and performed a pertinent physical examination on my patient. No changes have occurred unless specified. Time Spent With Patient Time: Total time managing care of this patient today ____ minutes.
--- NOTE | 2024-05-09 08:12 | HO.ECTPROC ---
ECT Procedure Note Diagnosis/Treatment Date of Service: 05/09/24 Diagnosis: Bipolar disorder Previous ECT Date: 05/07/24 Current Treatment Number: 3 Treatment: Series Interval Clinical Notes: The patient reported no improvement of her mood yet, still dysphoric. No side effects with preivuious ECT.Hopeless helpless ECT done bf no complications, woke up well Time: Total time managing care of this patient today ____ minutes. ECT Settings Device: THYMATRON DGx Electrode Placement: Bifrontal Program/Pulse Width: 0.50 Energy Percent: 100 Seizure Duration By EEG (in seconds): 51 Medications Administration General Anesthetic: Etomidate (12) Muscle Relaxant: Succinylcholine (80) Ancillary Medications Miscillaneous Medications: Midazolam (2 mg after ECT) Airway Management Airway Management: Bag Mask Ventilation Treatment Recommendations No Changes Recommended: No change Notes: pt remains quite depressed agreeable to ECT has helped previously Pt Tolerated Procedure w/o Issue: Yes
[2024-05-09] MEDS: Docusate Sodium 100 MG CAPSULE PO ×2 (09:15→20:27)
[2024-05-09] MEDS: Benztropine Mesylate 0.5 MG TABLET 0.25 MG PO ×2 (09:15→20:27)
[2024-05-09] MEDS: Omeprazole 20 MG CAPSULE.DR PO ×2 (09:15→20:26)
--- NOTE | 2024-05-09 18:49 | P.PNPSI_ITS ---
Subjective Subjective Date of Service: 05/10/24 Reason For Visit: SI Subjective Notes: Conditional Voluntary Healthcare Proxy: Yes Interim History: Pt slept through the night. She appeared with a slightly brighter affect, less repetitive about dog having DM. However, reports mood is depressed. No SI/HI. No plan or intent to harm herself. Review of Systems Review of Systems Constitutional : No Weight loss, No Fever, No Chills, No Night Sweats, No Fatigue, No Malaise ENT/Mouth : No Hearing loss, No Ear Pain, No Nasal Congestion, No Sinus Pain, No Hoarseness, No sore throat, No Rhinorrhea, No Swallowing Difficulty Eyes: No Eye Pain, No Swelling, No Redness, No Foreign Body, No Discharge, No Vision Changes Cardiovascular : No Chest Pain, No SOB, No Dyspnea on Exertion, No Orthopnea, No Edema, No Palpitations Respiratory : No Cough, No Sputum, No Wheezing, No Smoke Exposure, No Dyspnea Gastrointestinal : No Nausea, No Vomiting, No Diarrhea, No Constipation, No abdominal Pain, No Hematochezia, No Melena Genitourinary : no irregular bleeding, No Dysuria, No Urinary Frequency, No Hematuria, No Urinary Incontinence, No Urgency, No Flank Pain, No Urinary Flow Changes, No Hesitancy Musculoskeletal : No joint pain, No Myalgias, No Joint Swelling Skin : No Skin Lesions, No rash Neuro : No Weakness, No Numbness, No Paresthesias, No Loss of Consciousness, No Dizziness, No Headache Psych : No Anxiety/Panic, complaining of depression, states she does not want to wake up again. Denies any plans for SI or HI Heme/Lymph: No Bruising, No Bleeding,No Lymphadenopathy Endocrine : No Polyuria, No Polydipsia, No Temperature Intolerance Constitutional: Denies chills, Denies fatigue, Denies fever(s) and Denies headache(s) Eyes: Denies change in vision Denies dizziness, Denies headache(s), Denies nasal congestion and Denies nasal discharge Cardiovascular: Denies chest pain, Denies lightheadedness and Denies dyspnea Respiratory: Denies cough and Denies dyspnea Gastrointestinal: Denies constipation, Denies diarrhea, Denies nausea and Denies vomiting Musculoskeletal: Denies arthralgias and Denies muscle weakness Skin/Breast: Denies rash Denies confusion, Denies dizziness and Denies headache(s) Psychiatric: Reports as per HPI and Denies confusion Endocrine: Denies fatigue Hematologic/Lymphatic: Denies easy bleeding and Denies easy bruising Allergic/Immunologic: Denies urticaria Mental Status Exam Mental Status Exam Narrative: Pt is alert and oriented; behavior is isolative, quiet, calm, isolate; patient is not in distress; dressed in hospital attire with unkempt hair; mood is described as it's going and affect congruent, downcast; eye contact appropriate; Speech is slowed, soft, monotone; psychomotor retardation present; thought process is organized and goal directed; Thought content is on hopelessness, likely not get better, passive SI; otherwise pertinent to relevant topics and without any delusional content, paranoid ideations or grandiosity; passive SI; no intention/plans; no HI; There is no evidence of perceptual disturbance. Patients insight and judgment impaired. Patient Appearance: Unkempt Patient Orientation: Person Level of Consciousness: Awake Patient Behavior: Appropriate and Passive Mood Description: Withdrawn Affect Description: Blunted Patient Cognition Impaired: Yes Ability to Follow Directions: Fair Speech Pattern: Clear Diagnostics Vital Signs (24Hr): Vital Signs - 24 hr 05/08/24 19:57 05/09/24 06:25 05/09/24 07:16 Temperature 97.8 F 97.9 F 97.7 F Pulse Rate 79 67 64 Respiratory Rate 18 18 16 Blood Pressure 100/62 126/77 128/75 Pulse Oximetry 97 95 97 Oxygen Delivery Method Room Air Room Air 05/09/24 08:30 05/09/24 08:35 05/09/24 08:40 Temperature 97 F Pulse Rate 71 85 79 Respiratory Rate 16 16 16 Blood Pressure 137/79 116/67 Pulse Oximetry 95 96 96 Oxygen Delivery Method Room Air Room Air Room Air 05/09/24 08:46 05/09/24 09:01 Temperature 97 F Pulse Rate 70 67 Respiratory Rate 16 16 Blood Pressure 128/74 129/71 Pulse Oximetry 96 97 Oxygen Delivery Method Room Air Room Air BMI result Body Mass Index 22.7 Labs 04/24/24 16:11 04/26/24 07:26 Medications Medications Current Medications Acetaminophen (Acetaminophen 325 Mg Tablet) 650 mg PO Q6H PRN PRN Reason: Headache/Pain Mild Scale (1-3) Last Admin: 05/08/24 20:20 Dose: 650 mg Al Hydroxide/Mg Hydroxide (Magnesium Hydrox/Alum Hydrox 30 Ml Oral.Susp) 30 ml PO Q6H PRN PRN Reason: Heartburn/Nausea Benztropine Mesylate (Benztropine Mesylate 0.5 Mg Tablet) 0.25 mg PO BID [facility] Last Admin: 05/09/24 09:15 Dose: 0.25 mg Docusate Sodium (Docusate Sodium 100 Mg Capsule) 100 mg PO BID [facility] Last Admin: 05/09/24 09:15 Dose: 100 mg Gabapentin (Gabapentin 300 Mg Capsule) 600 mg PO BEDTIME [facility] Last Admin: 05/08/24 20:20 Dose: 600 mg Hydroxyzine HCl (Hydroxyzine Hcl 25 Mg Tablet) 25 mg PO Q6H PRN PRN Reason: Anxiety Last Admin: 05/07/24 18:01 Dose: 25 mg Lurasidone HCl (Lurasidone Hcl 20 Mg Tablet) 100 mg PO DAILY@1800 [facility] Last Admin: 05/08/24 17:26 Dose: 100 mg Magnesium Hydroxide (Milk Of Magnesia 30 Ml Oral.Susp) 30 ml PO DAILY PRN PRN Reason: Constipation Mirtazapine (Mirtazapine 30 Mg Tablet) 30 mg PO BEDTIME [facility] Last Admin: 05/08/24 20:20 Dose: 30 mg Multi-Ingred Cream/Lotion/Oil/Oint (Mineral Oil/Petrolatum,White 106 Gm Tube) 1 appl TOPICAL BID [facility]; Protocol Last Admin: 05/09/24 09:35 Dose: Not Given Omeprazole (Omeprazole 20 Mg Capsule.Dr) 20 mg PO BID [facility] Last Admin: 05/09/24 09:15 Dose: 20 mg Trazodone HCl (Trazodone Hcl 50 Mg Tablet) 50 mg PO BEDTIME MRX1 PRN PRN Reason: Insomnia Last Admin: 05/06/24 20:27 Dose: 50 mg Zolpidem Tartrate (Zolpidem Tartrate 5 Mg Tablet) 5 mg PO BEDTIME [facility] Last Admin: 05/08/24 20:20 Dose: 5 mg Allergies Allergies Allergy/AdvReac Type Severity Reaction Status Date / Time bee pollen Allergy Severe Anaphylaxis Verified 04/24/24 15:03 levofloxacin [From Levaquin] Allergy Severe Itching Verified 04/24/24 15:03 enoxaparin [From Lovenox] Allergy Intermediate Rash Verified 04/24/24 15:03 Seasonal Allergies Allergy Mild Runny Nose Verified 04/24/24 15:03 venlafaxine [From Effexor] Allergy Mild Constipatio Verified 04/24/24 15:03 n Penicillins Allergy Unknown Unknown Verified 04/24/24 15:03 Assessment & Plan Assessment & Plan (1) Bipolar 1 disorder, depressed, severe: Status: Acute Code(s): F31.4 - Bipolar disorder, current episode depressed, severe, without psychotic features Plan The patient is an elderly female with a past history of bipolar disorder and alcohol use disorder who was in this facility a few weeks ago the respond very well with ECT but she did not compliant with continuation of care. She relapsed and was readmitted. At this moment she is very depressed with suicidal ideation and severe psychomotor retardation. She agreed to restart ECT. Plan 05/08 continue tx. plan to d/c vraylar and keep latuda. continue ECT 05/10 continue tx. Reason for continued inpatient stay Substantial Risk for: inability to function Time Spent With Patient Time: Total time managing care of this patient today ____ minutes.
[2024-05-09] MEDS: Lurasidone HCl 20 MG TABLET 100 MG PO (19:11)
[2024-05-09] MEDS: Gabapentin 300 MG CAPSULE 600 MG PO (20:26)
[2024-05-09] MEDS: Mirtazapine 30 MG TABLET PO (20:27)
[2024-05-09] MEDS: traZODone HCL 50 MG TABLET PO (20:27)
[2024-05-09] MEDS: Zolpidem Tartrate 5 MG TABLET PO (20:27)
[2024-05-09] MEDS: Acetaminophen 325 MG TABLET 650 MG PO (20:31)
--- NOTE | 2024-05-09 22:11 | HO.ECTPROC ---
ECT Procedure Note Diagnosis/Treatment Date of Service: 05/11/24 Diagnosis: Bipolar disorder Time: Total time managing care of this patient today ____ minutes. ECT Settings Device: THYMATRON DGx
[2024-05-10 08:30] VITALS: BP 113/63; PULSE 72; RESP 17; TEMP 36; O2SAT 95
[2024-05-10] MEDS: Docusate Sodium 100 MG CAPSULE PO ×2 (08:49→21:24)
[2024-05-10] MEDS: Omeprazole 20 MG CAPSULE.DR PO ×2 (08:49→21:25)
[2024-05-10] MEDS: Benztropine Mesylate 0.5 MG TABLET 0.25 MG PO ×2 (08:49→21:25)
--- NOTE | 2024-05-10 08:49 | P.PNPSI_ITS ---
Subjective Subjective Date of Service: 05/10/24 Reason For Visit: SI Subjective Notes: Conditional Voluntary Interim History: Pt slept most of the night. Pt somewhat withdrawn, reports depressed mood. No SI/HI. appears internally preoccupied. taking medications. Review of Systems Review of Systems Constitutional : No Weight loss, No Fever, No Chills, No Night Sweats, No Fatigue, No Malaise ENT/Mouth : No Hearing loss, No Ear Pain, No Nasal Congestion, No Sinus Pain, No Hoarseness, No sore throat, No Rhinorrhea, No Swallowing Difficulty Eyes: No Eye Pain, No Swelling, No Redness, No Foreign Body, No Discharge, No Vision Changes Cardiovascular : No Chest Pain, No SOB, No Dyspnea on Exertion, No Orthopnea, No Edema, No Palpitations Respiratory : No Cough, No Sputum, No Wheezing, No Smoke Exposure, No Dyspnea Gastrointestinal : No Nausea, No Vomiting, No Diarrhea, No Constipation, No abdominal Pain, No Hematochezia, No Melena Genitourinary : no irregular bleeding, No Dysuria, No Urinary Frequency, No Hematuria, No Urinary Incontinence, No Urgency, No Flank Pain, No Urinary Flow Changes, No Hesitancy Musculoskeletal : No joint pain, No Myalgias, No Joint Swelling Skin : No Skin Lesions, No rash Neuro : No Weakness, No Numbness, No Paresthesias, No Loss of Consciousness, No Dizziness, No Headache Psych : No Anxiety/Panic, complaining of depression, states she does not want to wake up again. Denies any plans for SI or HI Heme/Lymph: No Bruising, No Bleeding,No Lymphadenopathy Endocrine : No Polyuria, No Polydipsia, No Temperature Intolerance Constitutional: Denies chills, Denies fatigue, Denies fever(s) and Denies headache(s) Eyes: Denies change in vision Denies dizziness, Denies headache(s), Denies nasal congestion and Denies nasal discharge Cardiovascular: Denies chest pain, Denies lightheadedness and Denies dyspnea Respiratory: Denies cough and Denies dyspnea Gastrointestinal: Denies constipation, Denies diarrhea, Denies nausea and Denies vomiting Musculoskeletal: Denies arthralgias and Denies muscle weakness Skin/Breast: Denies rash Denies confusion, Denies dizziness and Denies headache(s) Psychiatric: Reports as per HPI and Denies confusion Endocrine: Denies fatigue Hematologic/Lymphatic: Denies easy bleeding and Denies easy bruising Allergic/Immunologic: Denies urticaria Diagnostics Vital Signs (24Hr): Vital Signs - 24 hr 05/09/24 09:01 05/09/24 19:07 05/09/24 20:00 Temperature 97 F 97.5 F 97.6 F Pulse Rate 67 76 76 Respiratory Rate 16 18 18 Blood Pressure 129/71 151/83 H 124/61 Pulse Oximetry 97 96 96 Oxygen Delivery Method Room Air Room Air 05/10/24 08:30 Temperature 96.8 F Pulse Rate 72 Respiratory Rate 17 Blood Pressure 113/63 Pulse Oximetry 95 Oxygen Delivery Method Room Air BMI result Body Mass Index 22.7 Labs 04/24/24 16:11 04/26/24 07:26 Medications Medications Current Medications Acetaminophen (Acetaminophen 325 Mg Tablet) 650 mg PO Q6H PRN PRN Reason: Headache/Pain Mild Scale (1-3) Last Admin: 05/09/24 20:31 Dose: 650 mg Al Hydroxide/Mg Hydroxide (Magnesium Hydrox/Alum Hydrox 30 Ml Oral.Susp) 30 ml PO Q6H PRN PRN Reason: Heartburn/Nausea Benztropine Mesylate (Benztropine Mesylate 0.5 Mg Tablet) 0.25 mg PO BID [facility] Last Admin: 05/09/24 20:27 Dose: 0.25 mg Docusate Sodium (Docusate Sodium 100 Mg Capsule) 100 mg PO BID [facility] Last Admin: 05/09/24 20:27 Dose: 100 mg Gabapentin (Gabapentin 300 Mg Capsule) 600 mg PO BEDTIME [facility] Last Admin: 05/09/24 20:26 Dose: 600 mg Hydroxyzine HCl (Hydroxyzine Hcl 25 Mg Tablet) 25 mg PO Q6H PRN PRN Reason: Anxiety Last Admin: 05/07/24 18:01 Dose: 25 mg Lurasidone HCl (Lurasidone Hcl 20 Mg Tablet) 100 mg PO DAILY@1800 [facility] Last Admin: 05/09/24 19:11 Dose: 100 mg Magnesium Hydroxide (Milk Of Magnesia 30 Ml Oral.Susp) 30 ml PO DAILY PRN PRN Reason: Constipation Mirtazapine (Mirtazapine 30 Mg Tablet) 30 mg PO BEDTIME [facility] Last Admin: 05/09/24 20:27 Dose: 30 mg Multi-Ingred Cream/Lotion/Oil/Oint (Mineral Oil/Petrolatum,White 106 Gm Tube) 1 appl TOPICAL BID [facility]; Protocol Last Admin: 05/09/24 22:05 Dose: Not Given Omeprazole (Omeprazole 20 Mg Capsule.Dr) 20 mg PO BID [facility] Last Admin: 05/09/24 20:26 Dose: 20 mg Trazodone HCl (Trazodone Hcl 50 Mg Tablet) 50 mg PO BEDTIME MRX1 PRN PRN Reason: Insomnia Last Admin: 05/09/24 20:27 Dose: 50 mg Zolpidem Tartrate (Zolpidem Tartrate 5 Mg Tablet) 5 mg PO BEDTIME [facility] Last Admin: 05/09/24 20:27 Dose: 5 mg Allergies Allergies Allergy/AdvReac Type Severity Reaction Status Date / Time bee pollen Allergy Severe Anaphylaxis Verified 04/24/24 15:03 levofloxacin [From Levaquin] Allergy Severe Itching Verified 04/24/24 15:03 enoxaparin [From Lovenox] Allergy Intermediate Rash Verified 04/24/24 15:03 Seasonal Allergies Allergy Mild Runny Nose Verified 04/24/24 15:03 venlafaxine [From Effexor] Allergy Mild Constipatio Verified 04/24/24 15:03 n Penicillins Allergy Unknown Unknown Verified 04/24/24 15:03 Assessment & Plan Assessment & Plan (1) Bipolar 1 disorder, depressed, severe: Status: Acute Code(s): F31.4 - Bipolar disorder, current episode depressed, severe, without psychotic features Plan The patient is an elderly female with a past history of bipolar disorder and alcohol use disorder who was in this facility a few weeks ago the respond very well with ECT but she did not compliant with continuation of care. She relapsed and was readmitted. At this moment she is very depressed with suicidal ideation and severe psychomotor retardation. She agreed to restart ECT. Plan 05/08 continue tx. plan to d/c vraylar and keep latuda. continue ECT 05/09 continue tx 05/10 continue tx. Reason for continued inpatient stay Substantial Risk for: inability to function Time Spent With Patient Time: Total time managing care of this patient today ____ minutes.
[2024-05-10] MEDS: Lurasidone HCl 20 MG TABLET 100 MG PO (17:29)
[2024-05-10 20:00] VITALS: BP 120/78; PULSE 75; RESP 18; TEMP 36.1; O2SAT 97
[2024-05-10] MEDS: Acetaminophen 325 MG TABLET 650 MG PO (21:24)
[2024-05-10] MEDS: Gabapentin 300 MG CAPSULE 600 MG PO (21:24)
[2024-05-10] MEDS: Zolpidem Tartrate 5 MG TABLET PO (21:25)
[2024-05-10] MEDS: Mirtazapine 30 MG TABLET PO (21:25)
[2024-05-10] MEDS: traZODone HCL 50 MG TABLET PO (21:25)
[2024-05-11] MEDS: OLANZapine 10 MG VIAL IM (10:32)
[2024-05-11] MEDS: LORazepam 2 MG/ML VIAL IM (10:32)
--- NOTE | 2024-05-11 10:33 | PC.NURSE ---
Pt took food tray and was using it to slam the door trying to exit seek. Stealing food off other patients food trays. Unable to redirect. Received new orders from Shantel Bajwa for IM Zyprexa 10mg and Lorazepam 2mg. Pt was cooperative with Medication being administered without resistance. patient resting comfortably in her room
[2024-05-11] MEDS: OLANZapine ODT 10 MG TAB.RAPDIS TRANSLINGU (16:47)
[2024-05-11] MEDS: LORazepam 1 MG TABLET 2 MG PO (16:47)
--- NOTE | 2024-05-11 19:59 | P.PNPSI_ITS ---
Subjective Subjective Date of Service: 05/11/24 Reason For Visit: SI Subjective Notes: Conditional Voluntary Healthcare Proxy: Yes Interim History: Pt slept most of the night. She refused medications this morning. She presents as increasingly more accusatory and suspicious. Reports staff here is trying to harm her and someone is planning to kill her dog. She is exit seeking, running up and down the [place], suspicious. Given affirmed HCP- medication administer via IM olanzapine and ativan without issues. Review of Systems Review of Systems Constitutional : No Weight loss, No Fever, No Chills, No Night Sweats, No Fatigue, No Malaise ENT/Mouth : No Hearing loss, No Ear Pain, No Nasal Congestion, No Sinus Pain, No Hoarseness, No sore throat, No Rhinorrhea, No Swallowing Difficulty Eyes: No Eye Pain, No Swelling, No Redness, No Foreign Body, No Discharge, No Vision Changes Cardiovascular : No Chest Pain, No SOB, No Dyspnea on Exertion, No Orthopnea, No Edema, No Palpitations Respiratory : No Cough, No Sputum, No Wheezing, No Smoke Exposure, No Dyspnea Gastrointestinal : No Nausea, No Vomiting, No Diarrhea, No Constipation, No abdominal Pain, No Hematochezia, No Melena Genitourinary : no irregular bleeding, No Dysuria, No Urinary Frequency, No Hematuria, No Urinary Incontinence, No Urgency, No Flank Pain, No Urinary Flow Changes, No Hesitancy Musculoskeletal : No joint pain, No Myalgias, No Joint Swelling Skin : No Skin Lesions, No rash Neuro : No Weakness, No Numbness, No Paresthesias, No Loss of Consciousness, No Dizziness, No Headache Psych : No Anxiety/Panic, complaining of depression, states she does not want to wake up again. Denies any plans for SI or HI Heme/Lymph: No Bruising, No Bleeding,No Lymphadenopathy Endocrine : No Polyuria, No Polydipsia, No Temperature Intolerance Constitutional: Denies chills, Denies fatigue, Denies fever(s) and Denies headache(s) Eyes: Denies change in vision Denies dizziness, Denies headache(s), Denies nasal congestion and Denies nasal discharge Cardiovascular: Denies chest pain, Denies lightheadedness and Denies dyspnea Respiratory: Denies cough and Denies dyspnea Gastrointestinal: Denies constipation, Denies diarrhea, Denies nausea and Denies vomiting Musculoskeletal: Denies arthralgias and Denies muscle weakness Skin/Breast: Denies rash Denies confusion, Denies dizziness and Denies headache(s) Psychiatric: Reports as per HPI and Denies confusion Endocrine: Denies fatigue Hematologic/Lymphatic: Denies easy bleeding and Denies easy bruising Allergic/Immunologic: Denies urticaria Mental Status Exam Mental Status Exam Narrative: Pt is alert and oriented not to situation; behavior is agitated, exit seeking, running down the [place]; patient is not in distress; dressed in hospital attire with unkempt hair; affect is guarded, paranoid; eye contact appropriate; Speech is slowed, soft, monotone; psychomotor retardation present; thought process is organized and goal directed; Thought content is on hopelessness, likely not get better, passive SI; delusions: paranoid delusions thinking staff is trying to harm her and someone is trying to kill her dog; passive SI; no intention/plans; no HI; There is no evidence of perceptual disturbance. Patients insight and judgment impaired. Diagnostics Vital Signs (24Hr): Vital Signs - 24 hr 05/10/24 20:00 Temperature 96.9 F Pulse Rate 75 Respiratory Rate 18 Blood Pressure 120/78 Pulse Oximetry 97 Oxygen Delivery Method Room Air BMI result Body Mass Index 22.7 Labs 04/24/24 16:11 04/26/24 07:26 Medications Medications Current Medications Acetaminophen (Acetaminophen 325 Mg Tablet) 650 mg PO Q6H PRN PRN Reason: Headache/Pain Mild Scale (1-3) Last Admin: 05/10/24 21:24 Dose: 650 mg Al Hydroxide/Mg Hydroxide (Magnesium Hydrox/Alum Hydrox 30 Ml Oral.Susp) 30 ml PO Q6H PRN PRN Reason: Heartburn/Nausea Benztropine Mesylate (Benztropine Mesylate 0.5 Mg Tablet) 0.25 mg PO BID [facility] Last Admin: 05/11/24 09:35 Dose: Not Given Cariprazine (Cariprazine Hcl 3 Mg Capsule) 6 mg PO DAILY [facility] Last Admin: 05/11/24 10:25 Dose: Not Given Docusate Sodium (Docusate Sodium 100 Mg Capsule) 100 mg PO BID [facility] Last Admin: 05/11/24 09:35 Dose: Not Given Gabapentin (Gabapentin 300 Mg Capsule) 600 mg PO BEDTIME [facility] Last Admin: 05/10/24 21:24 Dose: 600 mg Hydroxyzine HCl (Hydroxyzine Hcl 25 Mg Tablet) 25 mg PO Q6H PRN PRN Reason: Anxiety Last Admin: 05/07/24 18:01 Dose: 25 mg Lurasidone HCl (Lurasidone Hcl 20 Mg Tablet) 100 mg PO DAILY@1700 [facility] Last Admin: 05/11/24 16:50 Dose: Not Given Magnesium Hydroxide (Milk Of Magnesia 30 Ml Oral.Susp) 30 ml PO DAILY PRN PRN Reason: Constipation Multi-Ingred Cream/Lotion/Oil/Oint (Mineral Oil/Petrolatum,White 106 Gm Tube) 1 appl TOPICAL BID [facility]; Protocol Last Admin: 05/11/24 09:35 Dose: Not Given Omeprazole (Omeprazole 20 Mg Capsule.Dr) 20 mg PO BID [facility] Last Admin: 05/11/24 09:35 Dose: Not Given Trazodone HCl (Trazodone Hcl 50 Mg Tablet) 50 mg PO BEDTIME MRX1 PRN PRN Reason: Insomnia Last Admin: 05/10/24 21:25 Dose: 50 mg Zolpidem Tartrate (Zolpidem Tartrate 5 Mg Tablet) 5 mg PO BEDTIME [facility] Last Admin: 05/10/24 21:25 Dose: 5 mg Allergies Allergies Allergy/AdvReac Type Severity Reaction Status Date / Time bee pollen Allergy Severe Anaphylaxis Verified 04/24/24 15:03 levofloxacin [From Levaquin] Allergy Severe Itching Verified 04/24/24 15:03 enoxaparin [From Lovenox] Allergy Intermediate Rash Verified 04/24/24 15:03 Seasonal Allergies Allergy Mild Runny Nose Verified 04/24/24 15:03 venlafaxine [From Effexor] Allergy Mild Constipatio Verified 04/24/24 15:03 n Penicillins Allergy Unknown Unknown Verified 04/24/24 15:03 Assessment & Plan Assessment & Plan (1) Bipolar 1 disorder, depressed, severe: Status: Acute Code(s): F31.4 - Bipolar disorder, current episode depressed, severe, without psychotic features Plan The patient is an elderly female with a past history of bipolar disorder and alcohol use disorder who was in this facility a few weeks ago the respond very well with ECT but she did not compliant with continuation of care. She relapsed and was readmitted. At this moment she is very depressed with suicidal ideation and severe psychomotor retardation. She agreed to restart ECT. Plan 05/08 continue tx. plan to d/c vraylar and keep latuda. continue ECT 05/09 continue tx 05/10 continue tx. 05/11 restart vraylar 6mg po daily, olanzapine prn, ect tomorrow Reason for continued inpatient stay Substantial Risk for: inability to function Time Spent With Patient Time: Total time managing care of this patient today ____ minutes.
[2024-05-11 20:00] VITALS: BP 91/60; PULSE 81; RESP 16; TEMP 37.1; O2SAT 93
[2024-05-12 05:44] VITALS: BP 122/76; PULSE 86; RESP 14; TEMP 36.1; O2SAT 96
--- NOTE | 2024-05-12 07:09 | PC.NURSE ---
This morning at around [address] to ECT, near elevator, she said she needs to go to bathroom, stood up, instead patient walked away in hallway saying she needs to go home, security called, doping supervisor notified, immediately, patient didn't leave the facility but was ushered to PACU for ECT, little later PACU called stating patient is refusing ECT, unit CC went to get patient, patient is now in her bed still saying she wants to go home.
--- NOTE | 2024-05-12 16:58 | HO.PSYCHPN ---
Subjective Subjective Date of Service: 05/12/24 Reason For Visit: SI Interim History: met with patient; discussed with team; reviewed chart pt has become manic, paranoid, telling staff that they are trying to poison her and refusing medication. Prior to this, patient consented to ECT. Today, however, she refused and tried to elope from PACU. Pt saying she does need or want ECT or medication...she says why are you doing this to me? but won't accept discussion of her depression and now lucrecia. pt later told customs entry writer she could not breath (pt sitting comfortably without any respiratory distress); refusing vitals but allowed customs entry writer to auscultate and lungs CTA b/l throughout; discussed anxiety but pt refused medication for this Mental Status Exam Mental Status Exam Narrative: Pt is alert and oriented not to situation; behavior is agitated, exit seeking, ran down guerrero to elope; patient is not in distress; dressed in hospital attire with unkempt hair; affect is guarded, paranoid; eye contact appropriate; Speech is latent and slowed, normal volume; both psychomotor agitation and retardation alternatively present; thought process is organized and goal directed; Thought content is vacuous or on paranoid delusional thinking; passive SI; no intention/plans; no HI; There is no evidence of perceptual disturbance. Patients insight and judgment impaired. Diagnostics Vital Signs (24Hr): Vital Signs - 24 hr 05/11/24 20:00 05/12/24 05:44 Temperature 98.8 F 96.9 F Pulse Rate 81 86 Respiratory Rate 16 14 Blood Pressure 91/60 122/76 Pulse Oximetry 93 96 Oxygen Delivery Method Room Air BMI result Body Mass Index 22.7 Labs 04/24/24 16:11 04/26/24 07:26 Medications Medications Current Medications Acetaminophen (Acetaminophen 325 Mg Tablet) 650 mg PO Q6H PRN PRN Reason: Headache/Pain Mild Scale (1-3) Last Admin: 05/10/24 21:24 Dose: 650 mg Al Hydroxide/Mg Hydroxide (Magnesium Hydrox/Alum Hydrox 30 Ml Oral.Susp) 30 ml PO Q6H PRN PRN Reason: Heartburn/Nausea Benztropine Mesylate (Benztropine Mesylate 0.5 Mg Tablet) 0.25 mg PO BID [facility] Last Admin: 05/12/24 09:57 Dose: Not Given Cariprazine (Cariprazine Hcl 3 Mg Capsule) 6 mg PO DAILY [facility] Last Admin: 05/12/24 09:57 Dose: Not Given Docusate Sodium (Docusate Sodium 100 Mg Capsule) 100 mg PO BID [facility] Last Admin: 05/12/24 09:57 Dose: Not Given Gabapentin (Gabapentin 300 Mg Capsule) 600 mg PO BEDTIME [facility] Last Admin: 05/11/24 20:31 Dose: Not Given Hydroxyzine HCl (Hydroxyzine Hcl 25 Mg Tablet) 25 mg PO Q6H PRN PRN Reason: Anxiety Last Admin: 05/07/24 18:01 Dose: 25 mg Lurasidone HCl (Lurasidone Hcl 20 Mg Tablet) 100 mg PO DAILY@1700 [facility] Last Admin: 05/11/24 16:50 Dose: Not Given Magnesium Hydroxide (Milk Of Magnesia 30 Ml Oral.Susp) 30 ml PO DAILY PRN PRN Reason: Constipation Multi-Ingred Cream/Lotion/Oil/Oint (Mineral Oil/Petrolatum,White 106 Gm Tube) 1 appl TOPICAL BID [facility]; Protocol Last Admin: 05/12/24 09:58 Dose: Not Given Omeprazole (Omeprazole 20 Mg Capsule.Dr) 20 mg PO BID [facility] Last Admin: 05/12/24 09:58 Dose: Not Given Trazodone HCl (Trazodone Hcl 50 Mg Tablet) 50 mg PO BEDTIME MRX1 PRN PRN Reason: Insomnia Last Admin: 05/10/24 21:25 Dose: 50 mg Zolpidem Tartrate (Zolpidem Tartrate 5 Mg Tablet) 5 mg PO BEDTIME [facility] Last Admin: 05/11/24 20:31 Dose: Not Given Allergies Allergies Allergy/AdvReac Type Severity Reaction Status Date / Time bee pollen Allergy Severe Anaphylaxis Verified 04/24/24 15:03 levofloxacin [From Levaquin] Allergy Severe Itching Verified 04/24/24 15:03 enoxaparin [From Lovenox] Allergy Intermediate Rash Verified 04/24/24 15:03 Seasonal Allergies Allergy Mild Runny Nose Verified 04/24/24 15:03 venlafaxine [From Effexor] Allergy Mild Constipatio Verified 04/24/24 15:03 n Penicillins Allergy Unknown Unknown Verified 04/24/24 15:03 Assessment & Plan Assessment & Plan (1) Bipolar 1 disorder, depressed, severe: Status: Acute Code(s): F31.4 - Bipolar disorder, current episode depressed, severe, without psychotic features Plan The patient is an elderly female with a past history of bipolar disorder and alcohol use disorder who was in this facility a few weeks ago the respond very well with ECT but she did not compliant with continuation of care. She relapsed and was readmitted. At this moment she is very depressed with suicidal ideation and severe psychomotor retardation. She agreed to restart ECT. Plan 05/08 continue tx. plan to d/c vraylar and keep latuda. continue ECT 05/09 continue tx 05/10 continue tx. 05/12 pt has become manic, paranoid, telling staff that they are trying to poison her and refusing medication.Paranoid thinking that staff is trying to harm her or someone is trying to kill her dog; Prior to this, patient consented to ECT. Today, however, she refused and tried to elope from PACU. Pt saying she does need or want ECT or medication...she says why are you doing this to me? but won't accept discussion of her depression and now lucrecia. patient has affirmed HCP, her sister Jennifer, affirmed by probate court. Will contact HCP to consent for ECT, medications Patient educated on: diagnosis, medication risk/benefits, ECT and therapeutic strategies Informed Consent: does not understand Reason for continued inpatient stay Substantial Risk for: inability to function Time Spent With Patient Time: Total time managing care of this patient today ____ minutes.
[2024-05-12 20:00] VITALS: BP 141/74; PULSE 96; RESP 18; TEMP 36.6; O2SAT 96
[2024-05-13 08:35] VITALS: BP 131/71; PULSE 97; RESP 16; TEMP 36.6; O2SAT 93
--- NOTE | 2024-05-13 09:21 | P.EN_ITS ---
Event Note Date of Service: 05/13/24 Event Note: on 05/13/24 teletypewriter operator and RN Luba Salomon together spoke on the phone with Jennifer Hernandezmiguel angelsantiago, patients sister and HCP, who consents to having patient receive ECT series of treatments, even if against her will; she also consents to administering mood stabilizing medications including antipsychotic medications and sedatives at providers discretion, including administering medications and antipsychotics via IM if patient refuses PO medication. Time Spent With Patient Time: Total time managing care of this patient today ____ minutes.
--- NOTE | 2024-05-13 10:03 | HO.PSYCHPN ---
Subjective Subjective Date of Service: 05/13/24 Reason For Visit: SI Interim History: met with patient; discussed with team pt remains disorganized; trying to elope; says she does not want ect or medication. Publication Designer contacted HCP with nurse present (Luba Salomon) who consents to ECT even if pt refuses; also consents to antipsychotic at writers disscretion including IM will star Invega Sustenna 234mg since she was on this last admission; will dc vraylar and lutuda as neither proved effective Mental Status Exam Mental Status Exam Narrative: Pt is alert and oriented not to situation; behavior is intermittentlyh agitated, exit seeking; patient is not in distress; dressed in hospital attire with unkempt hair; affect is guarded, paranoid; eye contact appropriate; Speech is latent and slowed, normal volume; both psychomotor agitation and retardation alternatively present; thought process is organized and goal directed; Thought content is vacuous or on paranoid delusional thinking; denies SI/HI; Patients insight and judgment impaired. Diagnostics Vital Signs (24Hr): Vital Signs - 24 hr 05/12/24 20:00 05/13/24 08:35 Temperature 97.8 F 97.9 F Pulse Rate 96 97 Respiratory Rate 18 16 Blood Pressure 141/74 H 131/71 Pulse Oximetry 96 93 Oxygen Delivery Method Room Air Room Air BMI result Body Mass Index 22.7 Labs 04/24/24 16:11 04/26/24 07:26 Medications Medications Current Medications Acetaminophen (Acetaminophen 325 Mg Tablet) 650 mg PO Q6H PRN PRN Reason: Headache/Pain Mild Scale (1-3) Last Admin: 05/10/24 21:24 Dose: 650 mg Al Hydroxide/Mg Hydroxide (Magnesium Hydrox/Alum Hydrox 30 Ml Oral.Susp) 30 ml PO Q6H PRN PRN Reason: Heartburn/Nausea Benztropine Mesylate (Benztropine Mesylate 0.5 Mg Tablet) 0.25 mg PO BID [facility] Last Admin: 05/12/24 20:26 Dose: Not Given Cariprazine (Cariprazine Hcl 3 Mg Capsule) 6 mg PO DAILY [facility] Last Admin: 05/12/24 09:57 Dose: Not Given Docusate Sodium (Docusate Sodium 100 Mg Capsule) 100 mg PO BID [facility] Last Admin: 05/12/24 20:26 Dose: Not Given Gabapentin (Gabapentin 300 Mg Capsule) 600 mg PO BEDTIME [facility] Last Admin: 05/12/24 20:26 Dose: Not Given Hydroxyzine HCl (Hydroxyzine Hcl 25 Mg Tablet) 25 mg PO Q6H PRN PRN Reason: Anxiety Last Admin: 05/07/24 18:01 Dose: 25 mg Lurasidone HCl (Lurasidone Hcl 20 Mg Tablet) 100 mg PO DAILY@1700 [facility] Last Admin: 05/12/24 18:26 Dose: Not Given Magnesium Hydroxide (Milk Of Magnesia 30 Ml Oral.Susp) 30 ml PO DAILY PRN PRN Reason: Constipation Multi-Ingred Cream/Lotion/Oil/Oint (Mineral Oil/Petrolatum,White 106 Gm Tube) 1 appl TOPICAL BID [facility]; Protocol Last Admin: 05/12/24 20:26 Dose: Not Given Omeprazole (Omeprazole 20 Mg Capsule.Dr) 20 mg PO BID [facility] Last Admin: 05/12/24 20:26 Dose: Not Given Trazodone HCl (Trazodone Hcl 50 Mg Tablet) 50 mg PO BEDTIME MRX1 PRN PRN Reason: Insomnia Last Admin: 05/10/24 21:25 Dose: 50 mg Zolpidem Tartrate (Zolpidem Tartrate 5 Mg Tablet) 5 mg PO BEDTIME [facility] Last Admin: 05/12/24 20:26 Dose: Not Given Allergies Allergies Allergy/AdvReac Type Severity Reaction Status Date / Time bee pollen Allergy Severe Anaphylaxis Verified 04/24/24 15:03 levofloxacin [From Levaquin] Allergy Severe Itching Verified 04/24/24 15:03 enoxaparin [From Lovenox] Allergy Intermediate Rash Verified 04/24/24 15:03 Seasonal Allergies Allergy Mild Runny Nose Verified 04/24/24 15:03 venlafaxine [From Effexor] Allergy Mild Constipatio Verified 04/24/24 15:03 n Penicillins Allergy Unknown Unknown Verified 04/24/24 15:03 Assessment & Plan Assessment & Plan (1) Bipolar 1 disorder, depressed, severe: Status: Acute Code(s): F31.4 - Bipolar disorder, current episode depressed, severe, without psychotic features Plan The patient is an elderly female with a past history of bipolar disorder and alcohol use disorder who was in this facility a few weeks ago the respond very well with ECT but she did not compliant with continuation of care. She relapsed and was readmitted. At this moment she is very depressed with suicidal ideation and severe psychomotor retardation. She agreed to restart ECT. Plan 05/08 continue tx. plan to d/c vraylar and keep latuda. continue ECT 05/09 continue tx 05/10 continue tx. 05/12 pt has become manic, paranoid, telling staff that they are trying to poison her and refusing medication.Paranoid thinking that staff is trying to harm her or someone is trying to kill her dog; Prior to this, patient consented to ECT. Today, however, she refused and tried to elope from PACU. Pt saying she does need or want ECT or medication...she says why are you doing this to me? but won't accept discussion of her depression and now lucrecia. 05/13 pt remains disorganized; trying to elope; says she does not want ect or medication. patient has affirmed HCP, her sister Jennifer, affirmed by probate court. Publication Designer contacted HCP with nurse present (Luba Salomon) who consents to ECT even if pt refuses; also consents to antipsychotic at writers disscretion including IM -will start Invega Sustenna 234mg since she was on this last admission; will dc vraylar and lutuda as neither proved effective Patient educated on: diagnosis and medication risk/benefits Informed Consent: understands, does not understand and further education needed Reason for continued inpatient stay Substantial Risk for: inability to function Time Spent With Patient Time: Total time managing care of this patient today ____ minutes.
[2024-05-13 20:00] VITALS: BP 137/79; PULSE 96; RESP 16; TEMP 36.6; O2SAT 97
[2024-05-13] MEDS: Omeprazole 20 MG CAPSULE.DR PO (21:07)
[2024-05-13] MEDS: Gabapentin 300 MG CAPSULE 600 MG PO (21:07)
[2024-05-13] MEDS: Zolpidem Tartrate 5 MG TABLET PO (21:07)
[2024-05-13] MEDS: Benztropine Mesylate 0.5 MG TABLET 0.25 MG PO (21:08)
[2024-05-13] MEDS: Docusate Sodium 100 MG CAPSULE PO (21:08)
[2024-05-13] MEDS: Paliperidone Palmitate 234 MG/1.5 ML SYRINGE IM (22:33)
[2024-05-14] VITALS (10 sets, daily range): BP systolic 98–135; BP diastolic 61–77; PULSE 81–125; RESP 14–18; TEMP 35.8–36.8; O2SAT 95–99
[2024-05-14] MEDS: Lactated Ringers 1,000 ML 100 ML IVCONT (06:52)
--- NOTE | 2024-05-14 07:23 | MHC.SHP ---
Pre-Procedural Eval Section A - 24 Hr Update-Section A only Date of Service: 05/14/24 The patient is an INPATIENT: Yes Changes since office visit: No Cold of Flu in the past 2 weeks, No New Medical Problems, No Changes in Medication and No Patient answered all questions The patient has been examined within 24 hours of the surgical procedure. The History & Physical has been completed within 30 days and I have reviewed it.: Yes Section B - Complete if H&P > 30 days Chief Complaint: SI Allergies: Allergies Allergy/AdvReac Type Severity Reaction Status Date / Time bee pollen Allergy Severe Anaphylaxis Verified 04/24/24 15:03 levofloxacin [From Levaquin] Allergy Severe Itching Verified 04/24/24 15:03 enoxaparin [From Lovenox] Allergy Intermediate Rash Verified 04/24/24 15:03 Seasonal Allergies Allergy Mild Runny Nose Verified 04/24/24 15:03 venlafaxine [From Effexor] Allergy Mild Constipatio Verified 04/24/24 15:03 n Penicillins Allergy Unknown Unknown Verified 04/24/24 15:03 Plan I have reviewed the history and physical and performed a pertinent physical examination on my patient. No changes have occurred unless specified. Time Spent With Patient Time: Total time managing care of this patient today ____ minutes.
--- NOTE | 2024-05-14 07:47 | P.PCN_ITS ---
ECT Procedure Note Diagnosis/Treatment Date of Service: 05/14/24 Diagnosis: Bipolar disorder Current Treatment Number: 4 Treatment: Series Interval Clinical Notes: The patient reported no improvement of her mood yet, still dysphoric. No side effects with preivuious ECT.Hopeless helpless belligerent refused last tx now affirmed hcp gave consent pt tacitly cooperated ECT done bf no complications, woke up well Time: Total time managing care of this patient today ____ minutes. ECT Settings Device: THYMATRON DGx Electrode Placement: Bifrontal Program/Pulse Width: 0.50 Energy Percent: 100 Seizure Duration By EEG (in seconds): 37 Medications Administration General Anesthetic: Etomidate (12) Muscle Relaxant: Succinylcholine (80) Ancillary Medications Miscillaneous Medications: Midazolam (2 mg after ECT) Airway Management Airway Management: Bag Mask Ventilation Treatment Recommendations No Changes Recommended: No change Notes: pt HCP HAD GIVEN CONSENTTO PROCEDURE Pt Tolerated Procedure w/o Issue: Yes
--- NOTE | 2024-05-14 08:08 | P.CONAN_ITS ---
[facility] Active Problems Active Problems: All Active Problems Pre-op evaluation (Acute) Depression (Acute) Arthritis of right knee (Acute) Bipolar 1 disorder, depressed, severe (Acute) Elevated troponin (Acute) Chest discomfort (Acute) S/P cardiac catheterization (Acute) Bipolar 1 disorder (Acute) Varus deformity of knee (Acute) Osteoarthritis of left knee (Acute) Anxiety (Acute) GERD (gastroesophageal reflux disease) (Acute) Insomnia (Acute) Osteopenia (Acute) Murmur, cardiac (Acute) Status post total knee replacement, left (Acute) Acute deep vein thrombosis (DVT) of left tibial vein (Chronic) Past Medical History Medical History History of skin cancer Hx of bladder problems VITO (generalized anxiety disorder) Murmur, cardiac Hx of thyroid nodule Osteopenia Hx of skin cancer, basal cell Seasonal allergies Insomnia Constipation GERD (gastroesophageal reflux disease) Anxiety History of electroconvulsive therapy Bipolar 1 disorder Functional capacity: independent ambulation Patient : No Family History Family History Mother Basal cell carcinoma (BCC) in situ of skin Osteoporosis Hyperlipidemia Father CAD (coronary artery disease) Alcoholism Sister Osteoporosis Depression Brother Cancer of tongue Cancer of skin Family history of problems with anesthesia: No Surgical History Surgical History Hx of colonoscopy H/O elbow surgery History of back surgery History of Problems with Anesthesia: No Social History Social History Household Members: Other Household Members Other:: Dog. Housing: Apartment Are you a primary healthcare administrative assistant to a significant other at home: No Do you presently have visiting nurse or other home services: Yes Unable to assess alcohol history related to: Unable to respond Patient Tobacco Use Status: Never used Tobacco Tobacco use type: Cigarette Years Smoked: 30+, now vapes Smoked in Last 30 Days: Yes e-Cigarette/Vaping Use: Currently Using Frequency of e-Cigarette/Vaping Use: Not a lot. Patient Interested in Nicotine Replacement: No Patient Given Instructions on How to Stop Smoking: No Second Hand Smoke Exposure: No Use of substances other than those prescribed or required for medical reasons: No Substance Use Type: Crack/Cocaine Currently Displaying Signs/Symptoms of Drug Intoxication Withdrawal: No Any prior treatment program specific to substance use: No Have you been hit, kicked, punched, or otherwise hurt by someone within the past year? If so, by whom?: No Do you feel safe in your current relationship?: No Current Relationship Is there a partner from a previous relationship who is making you feel unsafe now?: No Are you made to feel afraid or neglected: No Advance Directives: No Advance Directives Information Provided: No Do you have thoughts of harming others: None Do you have a plan to hurt others: No Plan Recently lost weight without trying: Yes How much weight loss: 2-13 pounds Eating poorly because of decreased appetite: Yes Nutrition screen score: 4 Nutrition Risks: No Nutritional Risk Patient : No : No Poor oral hygiene: No service: No Current occupational status: unemployed and retired 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 Sexual orientation: Straight/Heterosexual Meds Allergies Allergy/AdvReac Type Severity Reaction Status Date / Time bee pollen Allergy Severe Anaphylaxis Verified 04/24/24 15:03 levofloxacin [From Levaquin] Allergy Severe Itching Verified 04/24/24 15:03 enoxaparin [From Lovenox] Allergy Intermediate Rash Verified 04/24/24 15:03 Seasonal Allergies Allergy Mild Runny Nose Verified 04/24/24 15:03 venlafaxine [From Effexor] Allergy Mild Constipatio Verified 04/24/24 15:03 n Penicillins Allergy Unknown Unknown Verified 04/24/24 15:03 Active Medications: Current Medications Acetaminophen (Acetaminophen 325 Mg Tablet) 650 mg PO Q6H PRN PRN Reason: Headache/Pain Mild Scale (1-3) Last Admin: 05/10/24 21:24 Dose: 650 mg Al Hydroxide/Mg Hydroxide (Magnesium Hydrox/Alum Hydrox 30 Ml Oral.Susp) 30 ml PO Q6H PRN PRN Reason: Heartburn/Nausea Benztropine Mesylate (Benztropine Mesylate 0.5 Mg Tablet) 0.25 mg PO BID [facility] Last Admin: 05/13/24 21:08 Dose: 0.25 mg Docusate Sodium (Docusate Sodium 100 Mg Capsule) 100 mg PO BID [facility] Last Admin: 05/13/24 21:08 Dose: 100 mg Gabapentin (Gabapentin 300 Mg Capsule) 600 mg PO BEDTIME [facility] Last Admin: 11/12/24 21:07 Dose: 600 mg Hydroxyzine HCl (Hydroxyzine Hcl 25 Mg Tablet) 25 mg PO Q6H PRN PRN Reason: Anxiety Last Admin: 05/07/24 18:01 Dose: 25 mg Lactated Ringer's (Lr) 1,000 mls @ 100 mls/hr IVCONT .Q10H [facility] Last Admin: 05/14/24 06:52 Dose: 100 mls/hr Magnesium Hydroxide (Milk Of Magnesia 30 Ml Oral.Susp) 30 ml PO DAILY PRN PRN Reason: Constipation Multi-Ingred Cream/Lotion/Oil/Oint (Mineral Oil/Petrolatum,White 106 Gm Tube) 1 appl TOPICAL BID [facility]; Protocol Last Admin: 05/13/24 22:26 Dose: Not Given Omeprazole (Omeprazole 20 Mg Capsule.Dr) 20 mg PO BID [facility] Last Admin: 05/13/24 21:07 Dose: 20 mg Paliperidone (Paliperidone Er 6 Mg Tab.Er.24) 6 mg PO DAILY [facility] Trazodone HCl (Trazodone Hcl 50 Mg Tablet) 50 mg PO BEDTIME MRX1 PRN PRN Reason: Insomnia Last Admin: 05/10/24 21:25 Dose: 50 mg Zolpidem Tartrate (Zolpidem Tartrate 5 Mg Tablet) 5 mg PO BEDTIME [facility] Last Admin: 05/13/24 21:07 Dose: 5 mg Home Medications ?Medication ?Instructions ?Recorded ?Confirmed ?Last Taken ?Type mirtazapine 30 mg tablet 30 mg PO BEDTIME 04/24/24 04/24/24 04/23/24 History omeprazole 20 mg capsule,delayed 20 mg PO DAILY@0630 04/25/24 04/25/24 Unknown History release thiamine HCl (vitamin B1) 100 mg 100 mg PO BID 04/25/24 04/25/24 Unknown History tablet (Vitamin B-1) Exam Height,Weight and Vital Signs: Height 5 ft 7 in Weight 65.68 kg Last Vital Signs Temp 97.4 F 05/14/24 07:40 Pulse 84 05/14/24 07:55 Resp 16 05/14/24 07:55 BP 114/68 05/14/24 07:55 Pulse Ox 95 05/14/24 07:55 O2 Del Method Room Air 11/13/24 07:55 O2 Flow Rate 4 05/14/24 07:55 Pertinent Lab Results Pertinent Lab Results: Laboratory Tests 04/24/24 04/24/24 04/26/24 16:11 19:56 07:26 WBC 5.8 RBC 4.34 Hgb 13.2 Hct 37.6 MCV 86.6 MCH 30.4 MCHC 35.1 H RDW 13.1 Plt Count 210 MPV 8.3 L Immature Gran % (Auto) 0.3 Neut % (Auto) 57.0 Lymph % (Auto) 32.2 [place] % (Auto) 9.0 Eos % (Auto) 1.0 Baso % (Auto) 0.5 Lymph # (Auto) 1.9 [place] # (Auto) 0.5 Eos # (Auto) 0.1 Baso # (Auto) 0.0 Abs Immat Gran (auto) 0.02 Absolute Neuts (auto) 3.3 Absolute Nucleated RBC 0.000 Nucleated RBC % (auto) 0.0 Sodium 139 139 Potassium 4.0 4.2 Chloride 106 107 Carbon Dioxide 26 25 Anion Gap 11 L 11 L BUN 15 21 H Creatinine 0.81 0.79 Estim Creat Clear Calc 66.4 68.1 Estimated GFR > 60 > 60 Random Glucose 101 Fasting Glucose 102 H Estimat Average Glucose 117 Hemoglobin A1c % 5.7 Calcium 9.6 9.7 Total Bilirubin 0.2 0.3 AST 21 18 ALT 11 12 Alkaline Phosphatase 91 90 Total Protein 6.8 6.7 Albumin 4.1 4.0 Triglycerides 83 Cholesterol 232 H LDL Cholesterol, Calc 157 H HDL Cholesterol 59 Vitamin B12 383 TSH 0.43 Urine Color Yellow Urine Appearance Clear Urine pH 6.5 Ur Specific [place] 1.020 Urine Protein Negative Urine Glucose (UA) Negative Urine Ketones Negative Urine Blood Negative Urine Nitrite Negative Ur Leukocyte Esterase Small (1+) H Urine RBC 0-2 Urine WBC 6-10 H Ur Squamous Epith Cells 0-2 Urine Bacteria None Seen Hyaline Casts 0-2 Salicylates < 5.0 L Urine Opiates Screen Not Detected Ur Buprenorphine Scrn Not Detected Ur Oxycodone Screen Not Detected Urine Methadone Screen Not Detected Urine Fentanyl Screen Not Detected Acetaminophen < 3 Ur Barbiturates Screen Not Detected Ur Phencyclidine Scrn Not Detected Ur Amphetamines Screen Not Detected U Benzodiazepines Scrn Not Detected Urine Cocaine Screen Not Detected U Marijuana (THC) Screen Not Detected Ethyl Alcohol < 10 Airway Mallampati Class: II TM Dist: >3cm Neck ROM: Full Heart: RRR Lungs: CTA Assessment and Plan Assessment Anesthesia Assessment: Anesthesia Plan Discussed and Chart Reviewed Final Anesthetic Review Family History of Problems with Anesthesia: No History of Problems with Anesthesia: No NPO: Yes ASA Class: III Final Preanesthetic Review: Meds/Allgs Chart Reviewed, Consent Obtained/Reviewed and Anes Risks/Benef Reviewed Patient Risk: Intermediate Procedure Risk: Low Anesthetic Plan Anesthetic Plan: GA Disposition: Standard PACU
--- NOTE | 2024-05-14 08:12 | HO.POSTANES ---
Post Anesthesia Evaluation Post Anesthesia Evaluation Date of Service: 05/14/24 Vital Signs: Vital Signs Temp Pulse Resp BP Pulse Ox O2 Del Method O2 Flow Rate 05/14/24 07:55 84 16 114/68 95 Room Air 4 05/14/24 07:50 98 16 106/70 95 Room Air 05/14/24 07:45 98 16 102/70 99 Nasal Cannula 4 05/14/24 07:40 97.4 F 82 16 112/67 99 Nasal Cannula 4 05/14/24 06:41 96.5 F L 86 14 108/77 97 Room Air 05/14/24 06:26 97 F 81 16 102/77 96 Anesthesia: General Mental Status: Awake Pain Control: Satisfactory Nausea/Vomiting: None Hydration: Adequate Anesthesia-Related Issues: No Anes. Related Issues
[2024-05-14] MEDS: Benztropine Mesylate 0.5 MG TABLET 0.25 MG PO ×2 (09:24→20:56)
[2024-05-14] MEDS: Omeprazole 20 MG CAPSULE.DR PO ×2 (09:24→20:56)
[2024-05-14] MEDS: Docusate Sodium 100 MG CAPSULE PO ×2 (09:24→20:56)
[2024-05-14] MEDS: Paliperidone ER 6 MG TAB.ER.24 PO (09:25)
[2024-05-14] MEDS: Gabapentin 300 MG CAPSULE 600 MG PO (20:56)
[2024-05-14] MEDS: Zolpidem Tartrate 5 MG TABLET PO (20:58)
--- NOTE | 2024-05-14 21:45 | P.PNPSI_ITS ---
Subjective Subjective Date of Service: 05/14/24 Reason For Visit: SI Interim History: met with patient; discussed with team pt did received ECT today without incident; on unit, pt tried to elope; would not discuss with ticket writer Mental Status Exam Mental Status Exam Narrative: Pt is alert and oriented not to situation; behavior is intermittently agitated, exit seeking; patient is not in distress; dressed in hospital attire with unkempt hair; affect is guarded, paranoid; eye contact appropriate; Speech is latent and slowed, normal volume; both psychomotor agitation and retardation alternatively present; thought process is organized and goal directed; Thought content is vacuous or on paranoid delusional thinking; denies SI/HI; Patients insight and judgment impaired. Diagnostics Vital Signs (24Hr): Vital Signs - 24 hr 05/14/24 06:26 05/14/24 06:41 05/14/24 07:40 Temperature 97 F 96.5 F L 97.4 F Pulse Rate 81 86 82 Respiratory Rate 16 14 16 Blood Pressure 102/77 108/77 112/67 Pulse Oximetry 96 97 99 Oxygen Delivery Method Room Air Nasal Cannula Oxygen Flow Rate 4 05/14/24 07:45 05/14/24 07:50 05/14/24 07:55 Temperature Pulse Rate 98 98 84 Respiratory Rate 16 16 16 Blood Pressure 102/70 106/70 114/68 Pulse Oximetry 99 95 95 Oxygen Delivery Method Nasal Cannula Room Air Room Air Oxygen Flow Rate 4 4 05/14/24 08:10 05/14/24 09:02 05/14/24 17:52 Temperature 97.9 F 97.4 F Pulse Rate 84 90 125 H Respiratory Rate 16 16 18 Blood Pressure 114/68 135/72 98/68 Pulse Oximetry 95 96 98 Oxygen Delivery Method Room Air Room Air Room Air Oxygen Flow Rate 4 BMI result Body Mass Index 22.7 Labs 04/24/24 16:11 04/26/24 07:26 Medications Medications Current Medications Acetaminophen (Acetaminophen 325 Mg Tablet) 650 mg PO Q6H PRN PRN Reason: Headache/Pain Mild Scale (1-3) Last Admin: 05/10/24 21:24 Dose: 650 mg Al Hydroxide/Mg Hydroxide (Magnesium Hydrox/Alum Hydrox 30 Ml Oral.Susp) 30 ml PO Q6H PRN PRN Reason: Heartburn/Nausea Benztropine Mesylate (Benztropine Mesylate 0.5 Mg Tablet) 0.25 mg PO BID [facility] Last Admin: 05/14/24 20:56 Dose: 0.25 mg Docusate Sodium (Docusate Sodium 100 Mg Capsule) 100 mg PO BID [facility] Last Admin: 05/14/24 20:56 Dose: 100 mg Gabapentin (Gabapentin 300 Mg Capsule) 600 mg PO BEDTIME [facility] Last Admin: 05/14/24 20:56 Dose: 600 mg Hydroxyzine HCl (Hydroxyzine Hcl 25 Mg Tablet) 25 mg PO Q6H PRN PRN Reason: Anxiety Last Admin: 05/07/24 18:01 Dose: 25 mg Magnesium Hydroxide (Milk Of Magnesia 30 Ml Oral.Susp) 30 ml PO DAILY PRN PRN Reason: Constipation Multi-Ingred Cream/Lotion/Oil/Oint (Mineral Oil/Petrolatum,White 106 Gm Tube) 1 appl TOPICAL BID [facility]; Protocol Last Admin: 05/14/24 20:55 Dose: Not Given Omeprazole (Omeprazole 20 Mg Capsule.Dr) 20 mg PO BID [facility] Last Admin: 05/14/24 20:56 Dose: 20 mg Paliperidone (Paliperidone Er 6 Mg Tab.Er.24) 6 mg PO DAILY [facility] Last Admin: 05/14/24 09:25 Dose: 6 mg Trazodone HCl (Trazodone Hcl 50 Mg Tablet) 50 mg PO BEDTIME MRX1 PRN PRN Reason: Insomnia Last Admin: 05/10/24 21:25 Dose: 50 mg Zolpidem Tartrate (Zolpidem Tartrate 5 Mg Tablet) 5 mg PO BEDTIME [facility] Last Admin: 05/14/24 20:58 Dose: 5 mg Allergies Allergies Allergy/AdvReac Type Severity Reaction Status Date / Time bee pollen Allergy Severe Anaphylaxis Verified 04/24/24 15:03 levofloxacin [From Levaquin] Allergy Severe Itching Verified 04/24/24 15:03 enoxaparin [From Lovenox] Allergy Intermediate Rash Verified 04/24/24 15:03 Seasonal Allergies Allergy Mild Runny Nose Verified 04/24/24 15:03 venlafaxine [From Effexor] Allergy Mild Constipatio Verified 04/24/24 15:03 n Penicillins Allergy Unknown Unknown Verified 04/24/24 15:03 Assessment & Plan Assessment & Plan (1) Bipolar 1 disorder, depressed, severe: Status: Acute Code(s): F31.4 - Bipolar disorder, current episode depressed, severe, without psychotic features Plan The patient is an elderly female with a past history of bipolar disorder and alcohol use disorder who was in this facility a few weeks ago the respond very well with ECT but she did not compliant with continuation of care. She relapsed and was readmitted. At this moment she is very depressed with suicidal ideation and severe psychomotor retardation. She agreed to restart ECT. Plan 05/08 continue tx. plan to d/c vraylar and keep latuda. continue ECT 05/09 continue tx 05/10 continue tx. 05/12 pt has become manic, paranoid, telling staff that they are trying to poison her and refusing medication.Paranoid thinking that staff is trying to harm her or someone is trying to kill her dog; Prior to this, patient consented to ECT. Today, however, she refused and tried to elope from PACU. Pt saying she does need or want ECT or medication...she says why are you doing this to me? but won't accept discussion of her depression and now lucrecia. 05/13 pt remains disorganized; trying to elope; says she does not want ect or medication. patient has affirmed HCP, her sister Jennifer, affirmed by probate court. Generator Mechanic contacted HCP with nurse present (Luba Salomon) who consents to ECT even if pt refuses; also consents to antipsychotic at writers disscretion including IM -will start Invega Sustenna 234mg since she was on this last admission; will dc vraylar and lutuda as neither proved effective 05/14 pt did received ECT today without incident; on unit, pt tried to elope; would not discuss with ticket writer Patient educated on: diagnosis, medication risk/benefits and ECT Informed Consent: does not understand Reason for continued inpatient stay Substantial Risk for: inability to function Time Spent With Patient Time: Total time managing care of this patient today ____ minutes.
--- NOTE | 2024-05-15 08:16 | HO.POSTANES ---
Post Anesthesia Evaluation Post Anesthesia Evaluation Date of Service: 05/15/24 Anesthesia: General Mental Status: Awake Pain Control: Satisfactory Nausea/Vomiting: None Hydration: Adequate Anesthesia-Related Issues: No Anes. Related Issues
[2024-05-15] MEDS: Benztropine Mesylate 0.5 MG TABLET 0.25 MG PO ×2 (08:23→19:38)
[2024-05-15] MEDS: Paliperidone ER 6 MG TAB.ER.24 PO (08:23)
[2024-05-15] MEDS: Docusate Sodium 100 MG CAPSULE PO ×2 (08:23→19:39)
[2024-05-15] MEDS: Omeprazole 20 MG CAPSULE.DR PO ×2 (08:23→19:38)
[2024-05-15 08:25] VITALS: BP 116/72; PULSE 74; RESP 18; TEMP 36.3; O2SAT 97
[2024-05-15 15:25] VITALS: BMI 22.2
--- NOTE | 2024-05-15 15:59 | P.PNPSI_ITS ---
Subjective Subjective Date of Service: 05/15/24 Reason For Visit: SI Interim History: met with patient; discussed with team pt a little more calm today. Says she is ok to which typewriter ribbon winder shared that it seems ECT is helping. Pt asked if this was so and typewriter ribbon winder again affirmed. Mental Status Exam Mental Status Exam Narrative: Pt is alert and oriented not to situation; behavior is more calm; patient is not in distress; dressed in hospital attire with unkempt hair; affect is guarded, paranoid but maybe less so; eye contact appropriate; Speech is latent and slowed, normal volume; both psychomotor agitation and retardation alternatively present; thought process is organized and goal directed; Thought content is vacuous or on paranoid delusional thinking; denies SI/HI; Patients insight and judgment impaired. Diagnostics Vital Signs (24Hr): Vital Signs - 24 hr 05/14/24 17:52 05/14/24 20:00 05/15/24 08:25 Temperature 97.4 F 98.3 F 97.3 F Pulse Rate 125 H 89 74 Respiratory Rate 18 16 18 Blood Pressure 98/68 99/61 116/72 Pulse Oximetry 98 95 97 Oxygen Delivery Method Room Air Room Air Room Air BMI result Body Mass Index 22.2 Labs 04/24/24 16:11 04/26/24 07:26 Medications Medications Current Medications Acetaminophen (Acetaminophen 325 Mg Tablet) 650 mg PO Q6H PRN PRN Reason: Headache/Pain Mild Scale (1-3) Last Admin: 05/10/24 21:24 Dose: 650 mg Al Hydroxide/Mg Hydroxide (Magnesium Hydrox/Alum Hydrox 30 Ml Oral.Susp) 30 ml PO Q6H PRN PRN Reason: Heartburn/Nausea Benztropine Mesylate (Benztropine Mesylate 0.5 Mg Tablet) 0.25 mg PO BID [facility] Last Admin: 05/15/24 08:23 Dose: 0.25 mg Docusate Sodium (Docusate Sodium 100 Mg Capsule) 100 mg PO BID [facility] Last Admin: 05/15/24 08:23 Dose: 100 mg Gabapentin (Gabapentin 300 Mg Capsule) 600 mg PO BEDTIME [facility] Last Admin: 05/14/24 20:56 Dose: 600 mg Hydroxyzine HCl (Hydroxyzine Hcl 25 Mg Tablet) 25 mg PO Q6H PRN PRN Reason: Anxiety Last Admin: 05/07/24 18:01 Dose: 25 mg Magnesium Hydroxide (Milk Of Magnesia 30 Ml Oral.Susp) 30 ml PO DAILY PRN PRN Reason: Constipation Multi-Ingred Cream/Lotion/Oil/Oint (Mineral Oil/Petrolatum,White 106 Gm Tube) 1 appl TOPICAL BID [facility]; Protocol Last Admin: 05/15/24 08:25 Dose: Not Given Omeprazole (Omeprazole 20 Mg Capsule.Dr) 20 mg PO BID [facility] Last Admin: 05/15/24 08:23 Dose: 20 mg Paliperidone (Paliperidone Er 6 Mg Tab.Er.24) 6 mg PO DAILY [facility] Last Admin: 05/15/24 08:23 Dose: 6 mg Trazodone HCl (Trazodone Hcl 50 Mg Tablet) 50 mg PO BEDTIME MRX1 PRN PRN Reason: Insomnia Last Admin: 05/10/24 21:25 Dose: 50 mg Zolpidem Tartrate (Zolpidem Tartrate 5 Mg Tablet) 5 mg PO BEDTIME [facility] Last Admin: 05/14/24 20:58 Dose: 5 mg Allergies Allergies Allergy/AdvReac Type Severity Reaction Status Date / Time bee pollen Allergy Severe Anaphylaxis Verified 04/24/24 15:03 levofloxacin [From Levaquin] Allergy Severe Itching Verified 04/24/24 15:03 enoxaparin [From Lovenox] Allergy Intermediate Rash Verified 04/24/24 15:03 Seasonal Allergies Allergy Mild Runny Nose Verified 04/24/24 15:03 venlafaxine [From Effexor] Allergy Mild Constipatio Verified 04/24/24 15:03 n Penicillins Allergy Unknown Unknown Verified 04/24/24 15:03 Assessment & Plan Assessment & Plan (1) Bipolar 1 disorder, depressed, severe: Status: Acute Code(s): F31.4 - Bipolar disorder, current episode depressed, severe, without psychotic features Plan The patient is an elderly female with a past history of bipolar disorder and alcohol use disorder who was in this facility a few weeks ago the respond very well with ECT but she did not compliant with continuation of care. She relapsed and was readmitted. At this moment she is very depressed with suicidal ideation and severe psychomotor retardation. She agreed to restart ECT. Plan 05/08 continue tx. plan to d/c vraylar and keep latuda. continue ECT 05/09 continue tx 05/10 continue tx. 05/12 pt has become manic, paranoid, telling staff that they are trying to poison her and refusing medication.Paranoid thinking that staff is trying to harm her or someone is trying to kill her dog; Prior to this, patient consented to ECT. Today, however, she refused and tried to elope from PACU. Pt saying she does need or want ECT or medication...she says why are you doing this to me? but won't accept discussion of her depression and now lucrecia. 05/13 pt remains disorganized; trying to elope; says she does not want ect or medication. patient has affirmed HCP, her sister Jennifer, affirmed by probate court. Manager Digital contacted HCP with nurse present (Luba Salomon) who consents to ECT even if pt refuses; also consents to antipsychotic at writers disscretion including IM -Received Invega Sustenna 234mg; restarted since she was on this last admission; will dc vraylar and lutuda as neither proved effective (f/u loading dose to follow) 05/14 pt did received ECT today without incident; on unit, pt tried to elope; would not discuss with typewriter ribbon winder 05/15 pt a little more calm today. Says she is ok to which typewriter ribbon winder shared that it seems ECT is helping. Pt asked if this was so and typewriter ribbon winder again affirmed. Patient educated on: diagnosis, medication risk/benefits and ECT Informed Consent: understands, does not understand and further education needed Reason for continued inpatient stay Substantial Risk for: inability to function Time Spent With Patient Time: Total time managing care of this patient today ____ minutes.
[2024-05-15 19:36] VITALS: BP 123/82; PULSE 94; RESP 16; TEMP 36.9; O2SAT 96
[2024-05-15] MEDS: Gabapentin 300 MG CAPSULE 600 MG PO (19:38)
[2024-05-15] MEDS: OLANZapine 5 MG TABLET PO (19:38)
[2024-05-15] MEDS: Zolpidem Tartrate 5 MG TABLET PO (19:39)
[2024-05-15] MEDS: hydrOXYzine HCL 25 MG TABLET PO (20:47)
[2024-05-15] MEDS: traZODone HCL 50 MG TABLET PO (20:47)
[2024-05-16] VITALS (10 sets, daily range): BP systolic 110–141; BP diastolic 69–90; PULSE 73–89; RESP 16–20; TEMP 36.2–37.1; O2SAT 95–98
--- NOTE | 2024-05-16 08:47 | P.CONAN_ITS ---
[facility] Active Problems Active Problems: All Active Problems Pre-op evaluation (Acute) Depression (Acute) Arthritis of right knee (Acute) Bipolar 1 disorder, depressed, severe (Acute) Elevated troponin (Acute) Chest discomfort (Acute) S/P cardiac catheterization (Acute) Bipolar 1 disorder (Acute) Varus deformity of knee (Acute) Osteoarthritis of left knee (Acute) Anxiety (Acute) GERD (gastroesophageal reflux disease) (Acute) Insomnia (Acute) Osteopenia (Acute) Murmur, cardiac (Acute) Status post total knee replacement, left (Acute) Acute deep vein thrombosis (DVT) of left tibial vein (Chronic) Past Medical History Medical History History of skin cancer Hx of bladder problems VITO (generalized anxiety disorder) Murmur, cardiac Hx of thyroid nodule Osteopenia Hx of skin cancer, basal cell Seasonal allergies Insomnia Constipation GERD (gastroesophageal reflux disease) Anxiety History of electroconvulsive therapy Bipolar 1 disorder Functional capacity: independent ambulation Family History Family History Mother Basal cell carcinoma (BCC) in situ of skin Osteoporosis Hyperlipidemia Father CAD (coronary artery disease) Alcoholism Sister Osteoporosis Depression Brother Cancer of tongue Cancer of skin Family history of problems with anesthesia: No Surgical History Surgical History Hx of colonoscopy H/O elbow surgery History of back surgery History of Problems with Anesthesia: No Social History Social History Household Members: Other Household Members Other:: Dog. Housing: Apartment Are you a primary career development director to a significant other at home: No Do you presently have visiting nurse or other home services: Yes Unable to assess alcohol history related to: Unable to respond Patient Tobacco Use Status: Never used Tobacco Tobacco use type: Cigarette Years Smoked: 30+, now vapes Smoked in Last 30 Days: Yes e-Cigarette/Vaping Use: Currently Using Frequency of e-Cigarette/Vaping Use: Not a lot. Patient Interested in Nicotine Replacement: No Patient Given Instructions on How to Stop Smoking: No Second Hand Smoke Exposure: No Use of substances other than those prescribed or required for medical reasons: No Substance Use Type: Crack/Cocaine Currently Displaying Signs/Symptoms of Drug Intoxication Withdrawal: No Any prior treatment program specific to substance use: No Have you been hit, kicked, punched, or otherwise hurt by someone within the past year? If so, by whom?: No Do you feel safe in your current relationship?: No Current Relationship Is there a partner from a previous relationship who is making you feel unsafe now?: No Are you made to feel afraid or neglected: No Advance Directives: No Advance Directives Information Provided: No Do you have thoughts of harming others: None Do you have a plan to hurt others: No Plan Recently lost weight without trying: Yes How much weight loss: 2-13 pounds Eating poorly because of decreased appetite: Yes Nutrition screen score: 4 Nutrition Risks: No Nutritional Risk Patient : No : No Poor oral hygiene: No service: No Current occupational status: unemployed and retired 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 Sexual orientation: Straight/Heterosexual Meds Allergies Allergy/AdvReac Type Severity Reaction Status Date / Time bee pollen Allergy Severe Anaphylaxis Verified 04/24/24 15:03 levofloxacin [From Levaquin] Allergy Severe Itching Verified 04/24/24 15:03 enoxaparin [From Lovenox] Allergy Intermediate Rash Verified 04/24/24 15:03 Seasonal Allergies Allergy Mild Runny Nose Verified 04/24/24 15:03 venlafaxine [From Effexor] Allergy Mild Constipatio Verified 04/24/24 15:03 n Penicillins Allergy Unknown Unknown Verified 04/24/24 15:03 Active Medications: Current Medications Acetaminophen (Acetaminophen 325 Mg Tablet) 650 mg PO Q6H PRN PRN Reason: Headache/Pain Mild Scale (1-3) Last Admin: 05/10/24 21:24 Dose: 650 mg Al Hydroxide/Mg Hydroxide (Magnesium Hydrox/Alum Hydrox 30 Ml Oral.Susp) 30 ml PO Q6H PRN PRN Reason: Heartburn/Nausea Benztropine Mesylate (Benztropine Mesylate 0.5 Mg Tablet) 0.25 mg PO BID [facility] Last Admin: 05/15/24 19:38 Dose: 0.25 mg Docusate Sodium (Docusate Sodium 100 Mg Capsule) 100 mg PO BID [facility] Last Admin: 05/15/24 19:39 Dose: 100 mg Gabapentin (Gabapentin 300 Mg Capsule) 600 mg PO BEDTIME [facility] Last Admin: 05/15/24 19:38 Dose: 600 mg Hydroxyzine HCl (Hydroxyzine Hcl 25 Mg Tablet) 25 mg PO Q6H PRN PRN Reason: Anxiety Last Admin: 05/15/24 20:47 Dose: 25 mg Lactated Ringer's (Lr) 1,000 mls @ 100 mls/hr IVCONT .Q10H [facility] Magnesium Hydroxide (Milk Of Magnesia 30 Ml Oral.Susp) 30 ml PO DAILY PRN PRN Reason: Constipation Multi-Ingred Cream/Lotion/Oil/Oint (Mineral Oil/Petrolatum,White 106 Gm Tube) 1 appl TOPICAL BID [facility]; Protocol Last Admin: 05/15/24 19:41 Dose: Not Given Olanzapine (Olanzapine 5 Mg Tablet) 5 mg PO TID PRN PRN Reason: agitation Last Admin: 05/15/24 19:38 Dose: 5 mg Omeprazole (Omeprazole 20 Mg Capsule.Dr) 20 mg PO BID [facility] Last Admin: 05/15/24 19:38 Dose: 20 mg Paliperidone (Paliperidone Er 6 Mg Tab.Er.24) 6 mg PO DAILY [facility] Paliperidone Palmitate (Paliperidone Palmitate 156 Mg/Ml Syringe) 156 mg IM ONCE ONE Stop: 05/17/24 10:04 Paliperidone Palmitate (Paliperidone Palmitate 234 Mg/1.5 Ml Syringe) 234 mg IM Q30D [facility] Trazodone HCl (Trazodone Hcl 50 Mg Tablet) 50 mg PO BEDTIME MRX1 PRN PRN Reason: Insomnia Last Admin: 05/15/24 20:47 Dose: 50 mg Zolpidem Tartrate (Zolpidem Tartrate 5 Mg Tablet) 5 mg PO BEDTIME [facility] Last Admin: 05/15/24 19:39 Dose: 5 mg Home Medications ?Medication ?Instructions ?Recorded ?Confirmed ?Last Taken ?Type mirtazapine 30 mg tablet 30 mg PO BEDTIME 04/24/24 04/24/24 04/23/24 History omeprazole 20 mg capsule,delayed 20 mg PO DAILY@0630 04/25/24 04/25/24 Unknown History release thiamine HCl (vitamin B1) 100 mg 100 mg PO BID 04/25/24 04/25/24 Unknown History tablet (Vitamin B-1) Exam Height,Weight and Vital Signs: Height 5 ft 7 in Weight 64.319 kg Last Vital Signs Temp 98.7 F 05/16/24 08:24 Pulse 86 05/16/24 08:24 Resp 16 05/16/24 08:24 BP 126/80 05/16/24 08:24 Pulse Ox 96 05/16/24 08:24 O2 Del Method Room Air 05/16/24 08:24 O2 Flow Rate 4 05/14/24 08:10 Pertinent Lab Results Pertinent Lab Results: Laboratory Tests 04/24/24 04/24/24 04/26/24 16:11 19:56 07:26 WBC 5.8 RBC 4.34 Hgb 13.2 Hct 37.6 MCV 86.6 MCH 30.4 MCHC 35.1 H RDW 13.1 Plt Count 210 MPV 8.3 L Immature Gran % (Auto) 0.3 Neut % (Auto) 57.0 Lymph % (Auto) 32.2 Gall[place] % (Auto) 9.0 Eos % (Auto) 1.0 Baso % (Auto) 0.5 Lymph # (Auto) 1.9 [place] # (Auto) 0.5 Eos # (Auto) 0.1 Baso # (Auto) 0.0 Abs Immat Gran (auto) 0.02 Absolute Neuts (auto) 3.3 Absolute Nucleated RBC 0.000 Nucleated RBC % (auto) 0.0 Sodium 139 139 Potassium 4.0 4.2 Chloride 106 107 Carbon Dioxide 26 25 Anion Gap 11 L 11 L BUN 15 21 H Creatinine 0.81 0.79 Estim Creat Clear Calc 66.4 68.1 Estimated GFR > 60 > 60 Random Glucose 101 Fasting Glucose 102 H Estimat Average Glucose 117 Hemoglobin A1c % 5.7 Calcium 9.6 9.7 Total Bilirubin 0.2 0.3 AST 21 18 ALT 11 12 Alkaline Phosphatase 91 90 Total Protein 6.8 6.7 Albumin 4.1 4.0 Triglycerides 83 Cholesterol 232 H LDL Cholesterol, Calc 157 H HDL Cholesterol 59 Vitamin B12 383 TSH 0.43 Urine Color Yellow Urine Appearance Clear Urine pH 6.5 Ur Specific Wallace 1.020 Urine Protein Negative Urine Glucose (UA) Negative Urine Ketones Negative Urine Blood Negative Urine Nitrite Negative Ur Leukocyte Esterase Small (1+) H Urine RBC 0-2 Urine WBC 6-10 H Ur Squamous Epith Cells 0-2 Urine Bacteria None Seen Hyaline Casts 0-2 Salicylates < 5.0 L Urine Opiates Screen Not Detected Ur Buprenorphine Scrn Not Detected Ur Oxycodone Screen Not Detected Urine Methadone Screen Not Detected Urine Fentanyl Screen Not Detected Acetaminophen < 3 Ur Barbiturates Screen Not Detected Ur Phencyclidine Scrn Not Detected Ur Amphetamines Screen Not Detected U Benzodiazepines Scrn Not Detected Urine Cocaine Screen Not Detected U Marijuana (THC) Screen Not Detected Ethyl Alcohol < 10 Airway Mallampati Class: II TM Dist: >3cm Denture: Upper and Lower Loose/Missing/Broken Teeth: Yes, Upper and Lower Heart: RRR Lungs: CTA Assessment and Plan Assessment Anesthesia Assessment: Anesthesia Plan Discussed and Chart Reviewed Final Anesthetic Review Family History of Problems with Anesthesia: No History of Problems with Anesthesia: No NPO: Yes ASA Class: III Final Preanesthetic Review: Meds/Allgs Chart Reviewed, Consent Obtained/Reviewed and Anes Risks/Benef Reviewed Patient Risk: Intermediate Procedure Risk: Intermediate Anesthetic Plan Anesthetic Plan: GA Disposition: Standard PACU
--- NOTE | 2024-05-16 09:09 | MHC.SHP ---
Pre-Procedural Eval Section A - 24 Hr Update-Section A only Date of Service: 05/16/24 The patient is an INPATIENT: Yes Changes since office visit: Yes Changes in Medication; No Cold of Flu in the past 2 weeks, No New Medical Problems and No Patient answered all questions The patient has been examined within 24 hours of the surgical procedure. The History & Physical has been completed within 30 days and I have reviewed it.: Yes Section B - Complete if H&P > 30 days Chief Complaint: SI Allergies: Allergies Allergy/AdvReac Type Severity Reaction Status Date / Time bee pollen Allergy Severe Anaphylaxis Verified 04/24/24 15:03 levofloxacin [From Levaquin] Allergy Severe Itching Verified 04/24/24 15:03 enoxaparin [From Lovenox] Allergy Intermediate Rash Verified 04/24/24 15:03 Seasonal Allergies Allergy Mild Runny Nose Verified 04/24/24 15:03 venlafaxine [From Effexor] Allergy Mild Constipatio Verified 04/24/24 15:03 n Penicillins Allergy Unknown Unknown Verified 04/24/24 15:03 Plan I have reviewed the history and physical and performed a pertinent physical examination on my patient. No changes have occurred unless specified. Time Spent With Patient Time: Total time managing care of this patient today ____ minutes.
--- NOTE | 2024-05-16 09:10 | P.PCN_ITS ---
ECT Procedure Note Diagnosis/Treatment Date of Service: 05/16/24 Diagnosis: Bipolar disorder Previous ECT Date: 05/14/24 Current Treatment Number: 5 Treatment: Series Interval Clinical Notes: pt remains irritable dysphoric impulsive change to BT no noted side effects noted Time: Total time managing care of this patient today ____ minutes. ECT Settings Device: THYMATRON DGx Electrode Placement: Bitemporal Program/Pulse Width: 0.50 Energy Percent: 100 Seizure Duration By EEG (in seconds): 28 Medications Administration General Anesthetic: Etomidate (12) Muscle Relaxant: Succinylcholine (80) Ancillary Medications Miscillaneous Medications: Midazolam (2 mg after ECT) Airway Management Airway Management: Bag Mask Ventilation Treatment Recommendations No Changes Recommended: No change Electrode Placement: Bitemporal Notes: monitor response to bt hyperventilate before tx Pt Tolerated Procedure w/o Issue: Yes
[2024-05-16] MEDS: Docusate Sodium 100 MG CAPSULE PO ×2 (10:20→19:23)
[2024-05-16] MEDS: Benztropine Mesylate 0.5 MG TABLET 0.25 MG PO ×2 (10:21→19:22)
[2024-05-16] MEDS: Omeprazole 20 MG CAPSULE.DR PO ×2 (10:22→19:23)
[2024-05-16] MEDS: Mineral Oil/Petrolatum,White 106 GM Tube 1 APPL TOPICAL (10:23)
[2024-05-16] MEDS: Zolpidem Tartrate 5 MG TABLET PO (19:22)
[2024-05-16] MEDS: Gabapentin 300 MG CAPSULE 600 MG PO (19:22)
[2024-05-16] MEDS: traZODone HCL 50 MG TABLET PO (19:22)
[2024-05-16] MEDS: OLANZapine 5 MG TABLET PO (19:23)
[2024-05-17 08:47] VITALS: BP 122/62; PULSE 68; TEMP 36.3; O2SAT 99
[2024-05-17] MEDS: Docusate Sodium 100 MG CAPSULE PO ×2 (09:21→19:54)
[2024-05-17] MEDS: Omeprazole 20 MG CAPSULE.DR PO ×2 (09:21→19:54)
[2024-05-17] MEDS: Mineral Oil/Petrolatum,White 106 GM Tube 1 APPL TOPICAL (09:21)
[2024-05-17] MEDS: Benztropine Mesylate 0.5 MG TABLET 0.25 MG PO ×2 (09:22→19:53)
[2024-05-17] MEDS: OLANZapine 5 MG TABLET PO (10:17)
[2024-05-17] MEDS: Acetaminophen 325 MG TABLET 650 MG PO (10:17)
[2024-05-17] MEDS: Paliperidone Palmitate 156 MG/ML SYRINGE IM (11:21)
--- NOTE | 2024-05-17 12:28 | HO.PSYCHPN ---
Subjective Subjective Date of Service: 05/17/24 Reason For Visit: SI Subjective Notes: Conditional Voluntary Interim History: Patient was seen and discussed in rounds today. Records and plans were reviewed. She was doing a little better after the start of ECT but has gone downhill bed. She complains of some shortness of breath but her lungs are clear. P.o. 2s are 96-99%. She is verbal and interactive. Review of Systems Review of Systems Yes all other systems are reviewed and are negative Mental Status Exam Mental Status Exam Narrative: In today's visit she is alert, oriented to person and place. Speech is slowed. Moderate eye contact. Affect is constricted. No acute signs of psychosis or did overt delusions. Cognitively has slowed thought processes. No SI. Judgment is impaired Diagnostics Vital Signs (24Hr): Vital Signs - 24 hr 05/16/24 19:21 05/17/24 08:47 Temperature 98 F 97.4 F Pulse Rate 85 68 Respiratory Rate 16 Blood Pressure 110/69 122/62 Pulse Oximetry 95 99 Oxygen Delivery Method Room Air Room Air BMI result Body Mass Index 22.2 Labs 04/24/24 16:11 04/26/24 07:26 Medications Medications Current Medications Acetaminophen (Acetaminophen 325 Mg Tablet) 650 mg PO Q6H PRN PRN Reason: Headache/Pain Mild Scale (1-3) Last Admin: 05/17/24 10:17 Dose: 650 mg Al Hydroxide/Mg Hydroxide (Magnesium Hydrox/Alum Hydrox 30 Ml Oral.Susp) 30 ml PO Q6H PRN PRN Reason: Heartburn/Nausea Benztropine Mesylate (Benztropine Mesylate 0.5 Mg Tablet) 0.25 mg PO BID [facility] Last Admin: 05/17/24 09:22 Dose: 0.25 mg Docusate Sodium (Docusate Sodium 100 Mg Capsule) 100 mg PO BID [facility] Last Admin: 05/17/24 09:21 Dose: 100 mg Gabapentin (Gabapentin 300 Mg Capsule) 600 mg PO BEDTIME [facility] Last Admin: 05/16/24 19:22 Dose: 600 mg Hydroxyzine HCl (Hydroxyzine Hcl 25 Mg Tablet) 25 mg PO Q6H PRN PRN Reason: Anxiety Last Admin: 05/15/24 20:47 Dose: 25 mg Magnesium Hydroxide (Milk Of Magnesia 30 Ml Oral.Susp) 30 ml PO DAILY PRN PRN Reason: Constipation Multi-Ingred Cream/Lotion/Oil/Oint (Mineral Oil/Petrolatum,White 106 Gm Tube) 1 appl TOPICAL BID [facility]; Protocol Last Admin: 05/17/24 09:21 Dose: 1 appl Olanzapine (Olanzapine 5 Mg Tablet) 5 mg PO TID PRN PRN Reason: agitation Last Admin: 05/17/24 10:17 Dose: 5 mg Omeprazole (Omeprazole 20 Mg Capsule.Dr) 20 mg PO BID [facility] Last Admin: 05/17/24 09:21 Dose: 20 mg Paliperidone (Paliperidone Er 6 Mg Tab.Er.24) 6 mg PO DAILY [facility] Paliperidone Palmitate (Paliperidone Palmitate 234 Mg/1.5 Ml Syringe) 234 mg IM Q30D [facility] Trazodone HCl (Trazodone Hcl 50 Mg Tablet) 50 mg PO BEDTIME MRX1 PRN PRN Reason: Insomnia Last Admin: 05/16/24 19:22 Dose: 50 mg Zolpidem Tartrate (Zolpidem Tartrate 5 Mg Tablet) 5 mg PO BEDTIME [facility] Last Admin: 05/16/24 19:22 Dose: 5 mg Allergies Allergies Allergy/AdvReac Type Severity Reaction Status Date / Time bee pollen Allergy Severe Anaphylaxis Verified 04/24/24 15:03 levofloxacin [From Levaquin] Allergy Severe Itching Verified 04/24/24 15:03 enoxaparin [From Lovenox] Allergy Intermediate Rash Verified 04/24/24 15:03 Seasonal Allergies Allergy Mild Runny Nose Verified 04/24/24 15:03 venlafaxine [From Effexor] Allergy Mild Constipatio Verified 04/24/24 15:03 n Penicillins Allergy Unknown Unknown Verified 04/24/24 15:03 Assessment & Plan Assessment & Plan (1) Bipolar 1 disorder, depressed, severe: Status: Acute Code(s): F31.4 - Bipolar disorder, current episode depressed, severe, without psychotic features Plan The patient is an elderly female with a past history of bipolar disorder and alcohol use disorder who was in this facility a few weeks ago the respond very well with ECT but she did not compliant with continuation of care. She relapsed and was readmitted. At this moment she is very depressed with suicidal ideation and severe psychomotor retardation. She agreed to restart ECT. Plan 05/08 continue tx. plan to d/c vraylar and keep latuda. continue ECT 05/09 continue tx 05/10 continue tx. 05/12 pt has become manic, paranoid, telling staff that they are trying to poison her and refusing medication.Paranoid thinking that staff is trying to harm her or someone is trying to kill her dog; Prior to this, patient consented to ECT. Today, however, she refused and tried to elope from PACU. Pt saying she does need or want ECT or medication...she says why are you doing this to me? but won't accept discussion of her depression and now lucrecia. 05/17: Continue current regimen and plans for stabilization and medication management patient has affirmed HCP, her sister Jennifer, affirmed by probate court. Will contact HCP to consent for ECT, medications Reason for continued inpatient stay Substantial Risk for: med/psych decompensation Time Spent With Patient Time: Total time managing care of this patient today ____ minutes.
[2024-05-17] MEDS: Gabapentin 300 MG CAPSULE 600 MG PO (19:53)
[2024-05-17] MEDS: Zolpidem Tartrate 5 MG TABLET PO (19:54)
[2024-05-17 19:56] VITALS: BP 113/70; PULSE 86; RESP 16; TEMP 36.2; O2SAT 96
[2024-05-17] MEDS: Paliperidone ER 6 MG TAB.ER.24 PO (20:05)
[2024-05-18 08:47] VITALS: BP 146/67; PULSE 95; TEMP 36.4; O2SAT 96
[2024-05-18] MEDS: Mineral Oil/Petrolatum,White 106 GM Tube 1 APPL TOPICAL ×2 (08:49→19:58)
[2024-05-18] MEDS: Omeprazole 20 MG CAPSULE.DR PO ×2 (08:50→19:57)
[2024-05-18] MEDS: Docusate Sodium 100 MG CAPSULE PO ×2 (08:50→19:57)
[2024-05-18] MEDS: Benztropine Mesylate 0.5 MG TABLET 0.25 MG PO ×2 (08:50→19:57)
[2024-05-18] MEDS: Paliperidone ER 6 MG TAB.ER.24 PO (08:50)
--- NOTE | 2024-05-18 11:03 | P.PNPSI_ITS ---
Subjective Subjective Date of Service: 05/18/24 Reason For Visit: SI Subjective Notes: Conditional Voluntary Interim History: Patient was seen and discussed in rounds today. Records and plans were reviewed. She has been observed to be a little ?out of sorts? by the staff. They feel it is related to the ECT. She has been a little more irritable. No complaints. No changes were made today. No dangerous behaviors reported Review of Systems Review of Systems Yes Unobtainable due to mental status Mental Status Exam Mental Status Exam Narrative: In today's visit she is alert, oriented to person and place. Speech is slowed and minimal. Moderate eye contact. Affect is constricted. No acute signs of psychosis or any overt delusions. Cognitively she has slowed thought processes and marked paucity of thought. No SI. Judgment is impaired Diagnostics Vital Signs (24Hr): Vital Signs - 24 hr 05/17/24 19:56 05/18/24 08:47 Temperature 97.2 F 97.6 F Pulse Rate 86 95 Respiratory Rate 16 Blood Pressure 113/70 146/67 H Pulse Oximetry 96 96 Oxygen Delivery Method Room Air Room Air BMI result Body Mass Index 22.2 Labs 04/24/24 16:11 04/26/24 07:26 Medications Medications Current Medications Acetaminophen (Acetaminophen 325 Mg Tablet) 650 mg PO Q6H PRN PRN Reason: Headache/Pain Mild Scale (1-3) Last Admin: 05/17/24 10:17 Dose: 650 mg Al Hydroxide/Mg Hydroxide (Magnesium Hydrox/Alum Hydrox 30 Ml Oral.Susp) 30 ml PO Q6H PRN PRN Reason: Heartburn/Nausea Benztropine Mesylate (Benztropine Mesylate 0.5 Mg Tablet) 0.25 mg PO BID [facility] Last Admin: 05/18/24 08:50 Dose: 0.25 mg Docusate Sodium (Docusate Sodium 100 Mg Capsule) 100 mg PO BID [facility] Last Admin: 05/18/24 08:50 Dose: 100 mg Gabapentin (Gabapentin 300 Mg Capsule) 600 mg PO BEDTIME [facility]PLACED [facility] Last Admin: 05/17/24 19:53 Dose: 600 mg Hydroxyzine HCl (Hydroxyzine Hcl 25 Mg Tablet) 25 mg PO Q6H PRN PRN Reason: Anxiety Last Admin: 05/15/24 20:47 Dose: 25 mg Magnesium Hydroxide (Milk Of Magnesia 30 Ml Oral.Susp) 30 ml PO DAILY PRN PRN Reason: Constipation Multi-Ingred Cream/Lotion/Oil/Oint (Mineral Oil/Petrolatum,White 106 Gm Tube) 1 appl TOPICAL BID [facility]; Protocol Last Admin: 05/18/24 08:49 Dose: 1 appl Olanzapine (Olanzapine 5 Mg Tablet) 5 mg PO TID PRN PRN Reason: agitation Last Admin: 05/17/24 10:17 Dose: 5 mg Omeprazole (Omeprazole 20 Mg Capsule.Dr) 20 mg PO BID [facility] Last Admin: 05/18/24 08:50 Dose: 20 mg Paliperidone (Paliperidone Er 6 Mg Tab.Er.24) 6 mg PO DAILY [facility] Last Admin: 05/18/24 08:50 Dose: 6 mg Paliperidone Palmitate (Paliperidone Palmitate 234 Mg/1.5 Ml Syringe) 234 mg IM Q30D [facility]PLACED [facility] Trazodone HCl (Trazodone Hcl 50 Mg Tablet) 50 mg PO BEDTIME MRX1 PRN PRN Reason: Insomnia Last Admin: 05/16/24 19:22 Dose: 50 mg Zolpidem Tartrate (Zolpidem Tartrate 5 Mg Tablet) 5 mg PO BEDTIME [facility] Last Admin: 05/17/24 19:54 Dose: 5 mg Allergies Allergies Allergy/AdvReac Type Severity Reaction Status Date / Time bee pollen Allergy Severe Anaphylaxis Verified 04/24/24 15:03 levofloxacin [From Levaquin] Allergy Severe Itching Verified 04/24/24 15:03 enoxaparin [From Lovenox] Allergy Intermediate Rash Verified 04/24/24 15:03 Seasonal Allergies Allergy Mild Runny Nose Verified 04/24/24 15:03 venlafaxine [From Effexor] Allergy Mild Constipatio Verified 04/24/24 15:03 n Penicillins Allergy Unknown Unknown Verified 04/24/24 15:03 Assessment & Plan Assessment & Plan (1) Bipolar 1 disorder, depressed, severe: Status: Acute Code(s): F31.4 - Bipolar disorder, current episode depressed, severe, without psychotic features Plan The patient is an elderly female with a past history of bipolar disorder and alcohol use disorder who was in this facility a few weeks ago the respond very well with ECT but she did not compliant with continuation of care. She relapsed and was readmitted. At this moment she is very depressed with suicidal ideation and severe psychomotor retardation. She agreed to restart ECT. Plan 11/7 continue tx. plan to d/c vraylar and keep latuda. continue ECT 05/09 continue tx 05/10 continue tx. 05/12 pt has become manic, paranoid, telling staff that they are trying to poison her and refusing medication.Paranoid thinking that staff is trying to harm her or someone is trying to kill her dog; Prior to this, patient consented to ECT. Today, however, she refused and tried to elope from PACU. Pt saying she does need or want ECT or medication...she says why are you doing this to me? but won't accept discussion of her depression and now lucrecia. 05/17: Continue current regimen and plans for stabilization and medication management 05/18: Continue current regimen and plans for stabilization and medication management patient has affirmed HCP, her sister Jennifer, affirmed by probate court. Will contact HCP to consent for ECT, medications Reason for continued inpatient stay Substantial Risk for: inability to function Time Spent With Patient Time: Total time managing care of this patient today ____ minutes.
[2024-05-18 19:55] VITALS: BP 151/59; PULSE 74; RESP 16; TEMP 36.5; O2SAT 97
[2024-05-18] MEDS: Zolpidem Tartrate 5 MG TABLET PO (19:57)
[2024-05-18] MEDS: Gabapentin 300 MG CAPSULE 600 MG PO (19:57)
[2024-05-18] MEDS: traZODone HCL 50 MG TABLET PO (19:59)
[2024-05-18] MEDS: OLANZapine 5 MG TABLET PO (19:59)
--- NOTE | 2024-05-18 23:50 | HO.PSYCHPN ---
Subjective Subjective Date of Service: 05/16/24 Reason For Visit: SI Interim History: late entry note for patient seen on 05/16; discussed with team pt says she is feeling normal... and not depressed..in between. quality analyst/technical writer again affirmed that ECT seems to be helping and she did not disagree. Mental Status Exam Mental Status Exam Narrative: Pt is alert and oriented; behavior is more calm, not agitated or exit seeking; patient is not in distress; dressed in hospital attire with unkempt hair; mood is normal and affect more calm; less guarded; eye contact appropriate; Speech is normal rate, volume, prosody, not latent; no psychomotor agitation/retardation alternatively; thought process is organized and goal directed; Thought content is vacuous but no paranoid delusional thinking expressed; denies SI/HI; Patients insight and judgment impaired, a little improved. Diagnostics Vital Signs (24Hr): Vital Signs - 24 hr 05/18/24 08:47 05/18/24 19:55 Temperature 97.6 F 97.7 F Pulse Rate 95 74 Respiratory Rate 16 Blood Pressure 146/67 H 151/59 H Pulse Oximetry 96 97 Oxygen Delivery Method Room Air Room Air BMI result Body Mass Index 22.2 Labs 04/24/24 16:11 04/26/24 07:26 Medications Medications Current Medications Acetaminophen (Acetaminophen 325 Mg Tablet) 650 mg PO Q6H PRN PRN Reason: Headache/Pain Mild Scale (1-3) Last Admin: 05/17/24 10:17 Dose: 650 mg Al Hydroxide/Mg Hydroxide (Magnesium Hydrox/Alum Hydrox 30 Ml Oral.Susp) 30 ml PO Q6H PRN PRN Reason: Heartburn/Nausea Benztropine Mesylate (Benztropine Mesylate 0.5 Mg Tablet) 0.25 mg PO BID [facility] Last Admin: 05/18/24 19:57 Dose: 0.25 mg Docusate Sodium (Docusate Sodium 100 Mg Capsule) 100 mg PO BID [facility] Last Admin: 05/18/24 19:57 Dose: 100 mg Gabapentin (Gabapentin 300 Mg Capsule) 600 mg PO BEDTIME [facility] Last Admin: 05/18/24 19:57 Dose: 600 mg Hydroxyzine HCl (Hydroxyzine Hcl 25 Mg Tablet) 25 mg PO Q6H PRN PRN Reason: Anxiety Last Admin: 05/15/24 20:47 Dose: 25 mg Magnesium Hydroxide (Milk Of Magnesia 30 Ml Oral.Susp) 30 ml PO DAILY PRN PRN Reason: Constipation Multi-Ingred Cream/Lotion/Oil/Oint (Mineral Oil/Petrolatum,White 106 Gm Tube) 1 appl TOPICAL BID [facility]; Protocol Last Admin: 05/18/24 19:58 Dose: 1 appl Olanzapine (Olanzapine 5 Mg Tablet) 5 mg PO TID PRN PRN Reason: agitation Last Admin: 05/18/24 19:59 Dose: 5 mg Omeprazole (Omeprazole 20 Mg Capsule.Dr) 20 mg PO BID [facility] Last Admin: 05/18/24 19:57 Dose: 20 mg Paliperidone (Paliperidone Er 6 Mg Tab.Er.24) 6 mg PO DAILY [facility] Last Admin: 05/18/24 08:50 Dose: 6 mg Paliperidone Palmitate (Paliperidone Palmitate 234 Mg/1.5 Ml Syringe) 234 mg IM Q30D [facility] Trazodone HCl (Trazodone Hcl 50 Mg Tablet) 50 mg PO BEDTIME MRX1 PRN PRN Reason: Insomnia Last Admin: 05/18/24 19:59 Dose: 50 mg Zolpidem Tartrate (Zolpidem Tartrate 5 Mg Tablet) 5 mg PO BEDTIME [facility] Last Admin: 05/18/24 19:57 Dose: 5 mg Allergies Allergies Allergy/AdvReac Type Severity Reaction Status Date / Time bee pollen Allergy Severe Anaphylaxis Verified 04/24/24 15:03 levofloxacin [From Levaquin] Allergy Severe Itching Verified 04/24/24 15:03 enoxaparin [From Lovenox] Allergy Intermediate Rash Verified 04/24/24 15:03 Seasonal Allergies Allergy Mild Runny Nose Verified 04/24/24 15:03 venlafaxine [From Effexor] Allergy Mild Constipatio Verified 04/24/24 15:03 n Penicillins Allergy Unknown Unknown Verified 04/24/24 15:03 Assessment & Plan Assessment & Plan (1) Bipolar 1 disorder, depressed, severe: Status: Acute Code(s): F31.4 - Bipolar disorder, current episode depressed, severe, without psychotic features Plan The patient is an elderly female with a past history of bipolar disorder and alcohol use disorder who was in this facility a few weeks ago the respond very well with ECT but she did not compliant with continuation of care. She relapsed and was readmitted. At this moment she is very depressed with suicidal ideation and severe psychomotor retardation. She agreed to restart ECT. Plan 05/08 continue tx. plan to d/c vraylar and keep latuda. continue ECT 05/09 continue tx 05/10 continue tx. 05/12 pt has become manic, paranoid, telling staff that they are trying to poison her and refusing medication.Paranoid thinking that staff is trying to harm her or someone is trying to kill her dog; Prior to this, patient consented to ECT. Today, however, she refused and tried to elope from PACU. Pt saying she does need or want ECT or medication...she says why are you doing this to me? but won't accept discussion of her depression and now lucrecia. 05/13 pt remains disorganized; trying to elope; says she does not want ect or medication. patient has affirmed HCP, her sister Jennifer, affirmed by probate court. Spot Machine Operator contacted HCP with nurse present (Luba Salomon) who consents to ECT even if pt refuses; also consents to antipsychotic at writers disscretion including IM -Received Invega Sustenna 234mg; restarted since she was on this last admission; will dc vraylar and lutuda as neither proved effective (f/u loading dose to follow) 05/14 pt did received ECT today without incident; on unit, pt tried to elope; would not discuss with quality analyst/technical writer 05/15 pt a little more calm today. Says she is ok to which quality analyst/technical writer shared that it seems ECT is helping. Pt asked if this was so and quality analyst/technical writer again affirmed. 05/16 pt says she is feeling normal... and not depressed..in between. quality analyst/technical writer again affirmed that ECT seems to be helping and she did not disagree....still without much insight. Patient educated on: diagnosis, medication risk/benefits and ECT Informed Consent: understands, does not understand and further education needed Reason for continued inpatient stay Substantial Risk for: inability to function Time Spent With Patient Time: Total time managing care of this patient today ____ minutes.
[2024-05-19] VITALS (10 sets, daily range): BP systolic 107–145; BP diastolic 58–83; PULSE 65–97; RESP 16–18; TEMP 36–36.9; O2SAT 96–98
[2024-05-19] MEDS: Lactated Ringers 1,000 ML 100 ML IVCONT (06:55)
--- NOTE | 2024-05-19 07:03 | MHC.SHP ---
Pre-Procedural Eval Section A - 24 Hr Update-Section A only Date of Service: 05/19/24 The patient is an INPATIENT: Yes Changes since office visit: No Cold of Flu in the past 2 weeks, No New Medical Problems, No Changes in Medication and No Patient answered all questions The patient has been examined within 24 hours of the surgical procedure. The History & Physical has been completed within 30 days and I have reviewed it.: Yes Section B - Complete if H&P > 30 days Chief Complaint: SI Allergies: Allergies Allergy/AdvReac Type Severity Reaction Status Date / Time bee pollen Allergy Severe Anaphylaxis Verified 04/24/24 15:03 levofloxacin [From Levaquin] Allergy Severe Itching Verified 04/24/24 15:03 enoxaparin [From Lovenox] Allergy Intermediate Rash Verified 04/24/24 15:03 Seasonal Allergies Allergy Mild Runny Nose Verified 04/24/24 15:03 venlafaxine [From Effexor] Allergy Mild Constipatio Verified 04/24/24 15:03 n Penicillins Allergy Unknown Unknown Verified 04/24/24 15:03 Plan I have reviewed the history and physical and performed a pertinent physical examination on my patient. No changes have occurred unless specified. Time Spent With Patient Time: Total time managing care of this patient today ____ minutes.
--- NOTE | 2024-05-19 08:08 | HO.ECTPROC ---
ECT Procedure Note Diagnosis/Treatment Date of Service: 05/19/24 Diagnosis: Bipolar disorder Previous ECT Date: 05/16/24 Current Treatment Number: 6 Treatment: Series Interval Clinical Notes: The patient remains dysphoric, less depressed than before but still symptomatic. She denied side effects with the previous ECT. ECT done as usual bitemporal at 0.5 100%, normal seizure that resolved by itself, no complications, woke up well. Time: Total time managing care of this patient today ____ minutes. ECT Settings Device: THYMATRON DGx Electrode Placement: Bitemporal Program/Pulse Width: 0.50 Energy Percent: 100 Seizure Duration By EEG (in seconds): 38 By Motor Observation (in seconds): 25 Medications Administration General Anesthetic: Etomidate (12) Muscle Relaxant: Succinylcholine (80) Ancillary Medications Miscillaneous Medications: Midazolam (2 mg IVP after ECT) Airway Management Airway Management: Bag Mask Ventilation Treatment Recommendations No Changes Recommended: No change Pt Tolerated Procedure w/o Issue: Yes
--- NOTE | 2024-05-19 08:12 | P.CONAN_ITS ---
FORMERLY [facility] Active Problems Active Problems: All Active Problems Pre-op evaluation (Acute) Depression (Acute) Arthritis of right knee (Acute) Bipolar 1 disorder, depressed, severe (Acute) Elevated troponin (Acute) Chest discomfort (Acute) S/P cardiac catheterization (Acute) Bipolar 1 disorder (Acute) Varus deformity of knee (Acute) Osteoarthritis of left knee (Acute) Anxiety (Acute) GERD (gastroesophageal reflux disease) (Acute) Insomnia (Acute) Osteopenia (Acute) Murmur, cardiac (Acute) Status post total knee replacement, left (Acute) Acute deep vein thrombosis (DVT) of left tibial vein (Chronic) Past Medical History Medical History History of skin cancer Hx of bladder problems VITO (generalized anxiety disorder) Murmur, cardiac Hx of thyroid nodule Osteopenia Hx of skin cancer, basal cell Seasonal allergies Insomnia Constipation GERD (gastroesophageal reflux disease) Anxiety History of electroconvulsive therapy Bipolar 1 disorder Functional capacity: independent ambulation Family History Family History Mother Basal cell carcinoma (BCC) in situ of skin Osteoporosis Hyperlipidemia Father CAD (coronary artery disease) Alcoholism Sister Osteoporosis Depression Brother Cancer of tongue Cancer of skin Family history of problems with anesthesia: No Surgical History Surgical History Hx of colonoscopy H/O elbow surgery History of back surgery History of Problems with Anesthesia: No Social History Social History Household Members: Other Household Members Other:: Dog. Housing: Apartment Are you a primary healthcare prof to a significant other at home: No Do you presently have visiting nurse or other home services: Yes Unable to assess alcohol history related to: Unable to respond Patient Tobacco Use Status: Never used Tobacco Tobacco use type: Cigarette Years Smoked: 30+, now vapes Smoked in Last 30 Days: Yes e-Cigarette/Vaping Use: Currently Using Frequency of e-Cigarette/Vaping Use: Not a lot. Patient Interested in Nicotine Replacement: No Patient Given Instructions on How to Stop Smoking: No Second Hand Smoke Exposure: No Use of substances other than those prescribed or required for medical reasons: No Substance Use Type: Crack/Cocaine Currently Displaying Signs/Symptoms of Drug Intoxication Withdrawal: No Any prior treatment program specific to substance use: No Have you been hit, kicked, punched, or otherwise hurt by someone within the past year? If so, by whom?: No Do you feel safe in your current relationship?: No Current Relationship Is there a partner from a previous relationship who is making you feel unsafe now?: No Are you made to feel afraid or neglected: No Advance Directives: No Advance Directives Information Provided: No Do you have thoughts of harming others: None Do you have a plan to hurt others: No Plan Recently lost weight without trying: Yes How much weight loss: 2-13 pounds Eating poorly because of decreased appetite: Yes Nutrition screen score: 4 Nutrition Risks: No Nutritional Risk Patient : No : No Poor oral hygiene: No service: No Current occupational status: unemployed and retired 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 Sexual orientation: Straight/Heterosexual Meds Allergies Allergy/AdvReac Type Severity Reaction Status Date / Time bee pollen Allergy Severe Anaphylaxis Verified 04/24/24 15:03 levofloxacin [From Levaquin] Allergy Severe Itching Verified 04/24/24 15:03 enoxaparin [From Lovenox] Allergy Intermediate Rash Verified 04/24/24 15:03 Seasonal Allergies Allergy Mild Runny Nose Verified 04/24/24 15:03 venlafaxine [From Effexor] Allergy Mild Constipatio Verified 04/24/24 15:03 n Penicillins Allergy Unknown Unknown Verified 04/24/24 15:03 Active Medications: Current Medications Acetaminophen (Acetaminophen 325 Mg Tablet) 650 mg PO Q6H PRN PRN Reason: Headache/Pain Mild Scale (1-3) Last Admin: 05/17/24 10:17 Dose: 650 mg Al Hydroxide/Mg Hydroxide (Magnesium Hydrox/Alum Hydrox 30 Ml Oral.Susp) 30 ml PO Q6H PRN PRN Reason: Heartburn/Nausea Benztropine Mesylate (Benztropine Mesylate 0.5 Mg Tablet) 0.25 mg PO BID [facility] Last Admin: 05/18/24 19:57 Dose: 0.25 mg Docusate Sodium (Docusate Sodium 100 Mg Capsule) 100 mg PO BID [facility] Last Admin: 05/18/24 19:57 Dose: 100 mg Gabapentin (Gabapentin 300 Mg Capsule) 600 mg PO BEDTIME [facility] Last Admin: 05/18/24 19:57 Dose: 600 mg Hydroxyzine HCl (Hydroxyzine Hcl 25 Mg Tablet) 25 mg PO Q6H PRN PRN Reason: Anxiety Last Admin: 05/15/24 20:47 Dose: 25 mg Lactated Ringer's (Lr) 1,000 mls @ 100 mls/hr IVCONT .Q10H [facility] Last Admin: 05/19/24 06:55 Dose: 100 mls/hr Magnesium Hydroxide (Milk Of Magnesia 30 Ml Oral.Susp) 30 ml PO DAILY PRN PRN Reason: Constipation Multi-Ingred Cream/Lotion/Oil/Oint (Mineral Oil/Petrolatum,White 106 Gm Tube) 1 appl TOPICAL BID [facility]; Protocol Last Admin: 05/18/24 19:58 Dose: 1 appl Olanzapine (Olanzapine 5 Mg Tablet) 5 mg PO TID PRN PRN Reason: agitation Last Admin: 05/18/24 19:59 Dose: 5 mg Omeprazole (Omeprazole 20 Mg Capsule.Dr) 20 mg PO BID [facility] Last Admin: 05/18/24 19:57 Dose: 20 mg Paliperidone (Paliperidone Er 6 Mg Tab.Er.24) 6 mg PO DAILY [facility] Last Admin: 05/18/24 08:50 Dose: 6 mg Paliperidone Palmitate (Paliperidone Palmitate 234 Mg/1.5 Ml Syringe) 234 mg IM Q30D [facility] Trazodone HCl (Trazodone Hcl 50 Mg Tablet) 50 mg PO BEDTIME MRX1 PRN PRN Reason: Insomnia Last Admin: 05/18/24 19:59 Dose: 50 mg Zolpidem Tartrate (Zolpidem Tartrate 5 Mg Tablet) 5 mg PO BEDTIME [facility] Last Admin: 05/18/24 19:57 Dose: 5 mg Home Medications ?Medication ?Instructions ?Recorded ?Confirmed ?Last Taken ?Type mirtazapine 30 mg tablet 30 mg PO BEDTIME 04/24/24 04/24/24 04/23/24 History omeprazole 20 mg capsule,delayed 20 mg PO DAILY@0630 04/25/24 04/25/24 Unknown History release thiamine HCl (vitamin B1) 100 mg 100 mg PO BID 04/25/24 04/25/24 Unknown History tablet (Vitamin B-1) Exam Height,Weight and Vital Signs: Height 5 ft 7 in Weight 64.319 kg Last Vital Signs Temp 96.8 F 05/19/24 06:49 Pulse 67 05/19/24 06:49 Resp 16 05/19/24 06:49 BP 132/70 05/19/24 06:49 Pulse Ox 97 05/19/24 06:49 O2 Del Method Room Air 05/19/24 06:49 O2 Flow Rate 2 05/16/24 09:33 Pertinent Lab Results Pertinent Lab Results: Laboratory Tests 04/24/24 04/24/24 04/26/24 16:11 19:56 07:26 WBC 5.8 RBC 4.34 Hgb 13.2 Hct 37.6 MCV 86.6 MCH 30.4 MCHC 35.1 H RDW 13.1 Plt Count 210 MPV 8.3 L Immature Gran % (Auto) 0.3 Neut % (Auto) 57.0 Lymph % (Auto) 32.2 Brooks % (Auto) 9.0 Eos % (Auto) 1.0 Baso % (Auto) 0.5 Lymph # (Auto) 1.9 Brooks # (Auto) 0.5 Eos # (Auto) 0.1 Baso # (Auto) 0.0 Abs Immat Gran (auto) 0.02 Absolute Neuts (auto) 3.3 Absolute Nucleated RBC 0.000 Nucleated RBC % (auto) 0.0 Sodium 139 139 Potassium 4.0 4.2 Chloride 106 107 Carbon Dioxide 26 25 Anion Gap 11 L 11 L BUN 15 21 H Creatinine 0.81 0.79 Estim Creat Clear Calc 66.4 68.1 Estimated GFR > 60 > 60 Random Glucose 101 Fasting Glucose 102 H Estimat Average Glucose 117 Hemoglobin A1c % 5.7 Calcium 9.6 9.7 Total Bilirubin 0.2 0.3 AST 21 18 ALT 11 12 Alkaline Phosphatase 91 90 Total Protein 6.8 6.7 Albumin 4.1 4.0 Triglycerides 83 Cholesterol 232 H LDL Cholesterol, Calc 157 H HDL Cholesterol 59 Vitamin B12 383 TSH 0.43 Urine Color Yellow Urine Appearance Clear Urine pH 6.5 Ur Specific [place] 1.020 Urine Protein Negative Urine Glucose (UA) Negative Urine Ketones Negative Urine Blood Negative Urine Nitrite Negative Ur Leukocyte Esterase Small (1+) H Urine RBC 0-2 Urine WBC 6-10 H Ur Squamous Epith Cells 0-2 Urine Bacteria None Seen Hyaline Casts 0-2 Salicylates < 5.0 L Urine Opiates Screen Not Detected Ur Buprenorphine Scrn Not Detected Ur Oxycodone Screen Not Detected Urine Methadone Screen Not Detected Urine Fentanyl Screen Not Detected Acetaminophen < 3 Ur Barbiturates Screen Not Detected Ur Phencyclidine Scrn Not Detected Ur Amphetamines Screen Not Detected U Benzodiazepines Scrn Not Detected Urine Cocaine Screen Not Detected U Marijuana (THC) Screen Not Detected Ethyl Alcohol < 10 Airway Mallampati Class: III TM Dist: >3cm Neck ROM: Full Loose/Missing/Broken Teeth: Yes, Upper and Lower Assessment and Plan Assessment Anesthesia Assessment: Anesthesia Plan Discussed and Chart Reviewed Final Anesthetic Review Family History of Problems with Anesthesia: No History of Problems with Anesthesia: No NPO: Yes ASA Class: III Final Preanesthetic Review: No Changes in Pt Med Stat, Meds/Allgs Chart Reviewed, Consent Obtained/Reviewed and Anes Risks/Benef Reviewed Patient Risk: Intermediate Procedure Risk: Low Anesthetic Plan Anesthetic Plan: GA Disposition: Standard PACU
[2024-05-19] MEDS: Benztropine Mesylate 0.5 MG TABLET 0.25 MG PO ×2 (09:22→19:43)
[2024-05-19] MEDS: Paliperidone ER 6 MG TAB.ER.24 PO (09:22)
[2024-05-19] MEDS: Docusate Sodium 100 MG CAPSULE PO ×2 (09:22→19:43)
[2024-05-19] MEDS: Omeprazole 20 MG CAPSULE.DR PO ×2 (09:22→19:42)
--- NOTE | 2024-05-19 09:47 | P.PNPSI_ITS ---
Subjective Subjective Date of Service: 05/19/24 Reason For Visit: SI Subjective Notes: Conditional Voluntary Interim History: Pt slept most of the night. She had ECT this morning. She has been in sleeping since she returned from ECT. VS stable. Mostly in bed. Review of Systems Review of Systems Constitutional : No Weight loss, No Fever, No Chills, No Night Sweats, No Fatigue, No Malaise ENT/Mouth : No Hearing loss, No Ear Pain, No Nasal Congestion, No Sinus Pain, No Hoarseness, No sore throat, No Rhinorrhea, No Swallowing Difficulty Eyes: No Eye Pain, No Swelling, No Redness, No Foreign Body, No Discharge, No Vision Changes Cardiovascular : No Chest Pain, No SOB, No Dyspnea on Exertion, No Orthopnea, No Edema, No Palpitations Respiratory : No Cough, No Sputum, No Wheezing, No Smoke Exposure, No Dyspnea Gastrointestinal : No Nausea, No Vomiting, No Diarrhea, No Constipation, No abdominal Pain, No Hematochezia, No Melena Genitourinary : no irregular bleeding, No Dysuria, No Urinary Frequency, No Hematuria, No Urinary Incontinence, No Urgency, No Flank Pain, No Urinary Flow Changes, No Hesitancy Musculoskeletal : No joint pain, No Myalgias, No Joint Swelling Skin : No Skin Lesions, No rash Neuro : No Weakness, No Numbness, No Paresthesias, No Loss of Consciousness, No Dizziness, No Headache Psych : No Anxiety/Panic, complaining of depression, states she does not want to wake up again. Denies any plans for SI or HI Heme/Lymph: No Bruising, No Bleeding,No Lymphadenopathy Endocrine : No Polyuria, No Polydipsia, No Temperature Intolerance Yes all other systems are reviewed and are negative and Unobtainable due to mental status Constitutional: Denies chills, Denies fatigue, Denies fever(s) and Denies headache(s) Eyes: Denies change in vision Denies dizziness, Denies headache(s), Denies nasal congestion and Denies nasal discharge Cardiovascular: Denies chest pain, Denies lightheadedness and Denies dyspnea Respiratory: Denies cough and Denies dyspnea Gastrointestinal: Denies constipation, Denies diarrhea, Denies nausea and Denies vomiting Musculoskeletal: Denies arthralgias and Denies muscle weakness Skin/Breast: Denies rash Denies confusion, Denies dizziness and Denies headache(s) Psychiatric: Reports as per HPI and Denies confusion Endocrine: Denies fatigue Hematologic/Lymphatic: Denies easy bleeding and Denies easy bruising Allergic/Immunologic: Denies urticaria Mental Status Exam Mental Status Exam Narrative: Pt is alert and oriented; behavior is more calm, not agitated or exit seeking; patient is not in distress; dressed in hospital attire with unkempt hair; mood is normal and affect more calm; less guarded; eye contact appropriate; Speech is normal rate, volume, prosody, not latent; no psychomotor agitation/retardation alternatively; thought process is organized and goal directed; Thought content is vacuous but no paranoid delusional thinking expressed; denies SI/HI; Patients insight and judgment impaired, a little improved. Diagnostics Vital Signs (24Hr): Vital Signs - 24 hr 05/18/24 19:55 05/19/24 06:19 05/19/24 06:49 Temperature 97.7 F 96.8 F 96.8 F Pulse Rate 74 65 67 Respiratory Rate 16 16 16 Blood Pressure 151/59 H 107/58 L 132/70 Pulse Oximetry 97 96 97 Oxygen Delivery Method Room Air Room Air Oxygen Flow Rate 05/19/24 08:14 05/19/24 08:19 05/19/24 08:24 Temperature 97.7 F Pulse Rate 77 97 84 Respiratory Rate 17 16 16 Blood Pressure 126/68 135/80 138/78 Pulse Oximetry 98 97 96 Oxygen Delivery Method Nasal Cannula with ETCO2 Nasal Cannula Room Air Oxygen Flow Rate 2 2 05/19/24 08:29 05/19/24 08:44 05/19/24 08:59 Temperature 97.7 F Pulse Rate 85 80 77 Respiratory Rate 16 16 16 Blood Pressure 145/83 H 132/74 133/73 Pulse Oximetry 96 97 97 Oxygen Delivery Method Room Air Room Air Room Air Oxygen Flow Rate 05/19/24 09:21 Temperature 97.7 F Pulse Rate 79 Respiratory Rate 17 Blood Pressure 131/68 Pulse Oximetry 97 Oxygen Delivery Method Room Air Oxygen Flow Rate BMI result Body Mass Index 22.2 Labs 04/24/24 16:11 04/26/24 07:26 Medications Medications Current Medications Acetaminophen (Acetaminophen 325 Mg Tablet) 650 mg PO Q6H PRN PRN Reason: Headache/Pain Mild Scale (1-3) Last Admin: 05/17/24 10:17 Dose: 650 mg Al Hydroxide/Mg Hydroxide (Magnesium Hydrox/Alum Hydrox 30 Ml Oral.Susp) 30 ml PO Q6H PRN PRN Reason: Heartburn/Nausea Benztropine Mesylate (Benztropine Mesylate 0.5 Mg Tablet) 0.25 mg PO BID [facility] Last Admin: 05/19/24 09:22 Dose: 0.25 mg Docusate Sodium (Docusate Sodium 100 Mg Capsule) 100 mg PO BID [facility] Last Admin: 05/19/24 09:22 Dose: 100 mg Gabapentin (Gabapentin 300 Mg Capsule) 600 mg PO BEDTIME [facility] Last Admin: 05/18/24 19:57 Dose: 600 mg Hydroxyzine HCl (Hydroxyzine Hcl 25 Mg Tablet) 25 mg PO Q6H PRN PRN Reason: Anxiety Last Admin: 05/15/24 20:47 Dose: 25 mg Magnesium Hydroxide (Milk Of Magnesia 30 Ml Oral.Susp) 30 ml PO DAILY PRN PRN Reason: Constipation Multi-Ingred Cream/Lotion/Oil/Oint (Mineral Oil/Petrolatum,White 106 Gm Tube) 1 appl TOPICAL BID [facility]; Protocol Last Admin: 05/19/24 09:24 Dose: Not Given Naloxone HCl (Naloxone Hcl 0.4 Mg/Ml Vial) 0.04 mg IVPUSH Q5M PRN PRN Reason: Excessive sedation or RR < 8 Olanzapine (Olanzapine 5 Mg Tablet) 5 mg PO TID PRN PRN Reason: agitation Last Admin: 05/18/24 19:59 Dose: 5 mg Omeprazole (Omeprazole 20 Mg Capsule.Dr) 20 mg PO BID [facility] Last Admin: 05/19/24 09:22 Dose: 20 mg Paliperidone (Paliperidone Er 6 Mg Tab.Er.24) 6 mg PO DAILY [facility] Last Admin: 05/19/24 09:22 Dose: 6 mg Paliperidone Palmitate (Paliperidone Palmitate 234 Mg/1.5 Ml Syringe) 234 mg IM Q30D [facility] Trazodone HCl (Trazodone Hcl 50 Mg Tablet) 50 mg PO BEDTIME MRX1 PRN PRN Reason: Insomnia Last Admin: 05/18/24 19:59 Dose: 50 mg Zolpidem Tartrate (Zolpidem Tartrate 5 Mg Tablet) 5 mg PO BEDTIME [facility] Last Admin: 05/18/24 19:57 Dose: 5 mg Allergies Allergies Allergy/AdvReac Type Severity Reaction Status Date / Time bee pollen Allergy Severe Anaphylaxis Verified 04/24/24 15:03 levofloxacin [From Levaquin] Allergy Severe Itching Verified 04/24/24 15:03 enoxaparin [From Lovenox] Allergy Intermediate Rash Verified 04/24/24 15:03 Seasonal Allergies Allergy Mild Runny Nose Verified 04/24/24 15:03 venlafaxine [From Effexor] Allergy Mild Constipatio Verified 04/24/24 15:03 n Penicillins Allergy Unknown Unknown Verified 04/24/24 15:03 Assessment & Plan Assessment & Plan (1) Bipolar 1 disorder, depressed, severe: Status: Acute Code(s): F31.4 - Bipolar disorder, current episode depressed, severe, without psychotic features Plan The patient is an elderly female with a past history of bipolar disorder and alcohol use disorder who was in this facility a few weeks ago the respond very well with ECT but she did not compliant with continuation of care. She relapsed and was readmitted. At this moment she is very depressed with suicidal ideation and severe psychomotor retardation. She agreed to restart ECT. Plan 05/08 continue tx. plan to d/c vraylar and keep latuda. continue ECT 05/09 continue tx 05/10 continue tx. 05/12 pt has become manic, paranoid, telling staff that they are trying to poison her and refusing medication.Paranoid thinking that staff is trying to harm her or someone is trying to kill her dog; Prior to this, patient consented to ECT. Today, however, she refused and tried to elope from PACU. Pt saying she does need or want ECT or medication...she says why are you doing this to me? but won't accept discussion of her depression and now lucrecia. 05/13 pt remains disorganized; trying to elope; says she does not want ect or medication. patient has affirmed HCP, her sister Jennifer, affirmed by probate court. [employer] contacted HCP with nurse present (Luba Salomon) who consents to ECT even if pt refuses; also consents to antipsychotic at writers disscretion including IM -Received Invega Sustenna 234mg; restarted since she was on this last admission; will dc vraylar and lutuda as neither proved effective (f/u loading dose to follow) 05/14 pt did received ECT today without incident; on unit, pt tried to elope; would not discuss with casualty underwriter 05/15 pt a little more calm today. Says she is ok to which casualty underwriter shared that it seems ECT is helping. Pt asked if this was so and casualty underwriter again affirmed. 05/16 pt says she is feeling normal... and not depressed..in between. casualty underwriter again affirmed that ECT seems to be helping and she did not disagree....still without much insight. 05/19 continue ECT tx. She had ECT today. Reason for continued inpatient stay Substantial Risk for: inability to function Time Spent With Patient Time: Total time managing care of this patient today ____ minutes.
[2024-05-19] MEDS: traZODone HCL 50 MG TABLET PO (19:42)
[2024-05-19] MEDS: Gabapentin 300 MG CAPSULE 600 MG PO (19:43)
[2024-05-19] MEDS: Zolpidem Tartrate 5 MG TABLET PO (19:43)
[2024-05-19] MEDS: Mineral Oil/Petrolatum,White 106 GM Tube 1 APPL TOPICAL (19:43)
[2024-05-19] MEDS: OLANZapine 5 MG TABLET PO (19:43)
[2024-05-20 08:17] VITALS: BP 127/72; PULSE 75; RESP 14; TEMP 36.4; O2SAT 96
[2024-05-20] MEDS: Docusate Sodium 100 MG CAPSULE PO ×2 (08:18→20:51)
[2024-05-20] MEDS: Benztropine Mesylate 0.5 MG TABLET 0.25 MG PO ×2 (08:18→20:50)
[2024-05-20] MEDS: Paliperidone ER 6 MG TAB.ER.24 PO (08:18)
[2024-05-20] MEDS: Omeprazole 20 MG CAPSULE.DR PO ×2 (08:19→20:51)
--- NOTE | 2024-05-20 08:43 | HO.PSYCHPN ---
Subjective Subjective Date of Service: 05/20/24 Reason For Visit: SI Subjective Notes: Conditional Voluntary Interim History: Pt slept most of the night. She reports she is not doing well. She reports she has medical condition that was diagnosed here, which is not the case. She is persevering about not being well physically due to a new diagnosis. She denies any physical concerns. She denies SI/HI. Slightly more organized today, internally preoccupied. visible for meals. not social with peers. Review of Systems Review of Systems Constitutional : No Weight loss, No Fever, No Chills, No Night Sweats, No Fatigue, No Malaise ENT/Mouth : No Hearing loss, No Ear Pain, No Nasal Congestion, No Sinus Pain, No Hoarseness, No sore throat, No Rhinorrhea, No Swallowing Difficulty Eyes: No Eye Pain, No Swelling, No Redness, No Foreign Body, No Discharge, No Vision Changes Cardiovascular : No Chest Pain, No SOB, No Dyspnea on Exertion, No Orthopnea, No Edema, No Palpitations Respiratory : No Cough, No Sputum, No Wheezing, No Smoke Exposure, No Dyspnea Gastrointestinal : No Nausea, No Vomiting, No Diarrhea, No Constipation, No abdominal Pain, No Hematochezia, No Melena Genitourinary : no irregular bleeding, No Dysuria, No Urinary Frequency, No Hematuria, No Urinary Incontinence, No Urgency, No Flank Pain, No Urinary Flow Changes, No Hesitancy Musculoskeletal : No joint pain, No Myalgias, No Joint Swelling Skin : No Skin Lesions, No rash Neuro : No Weakness, No Numbness, No Paresthesias, No Loss of Consciousness, No Dizziness, No Headache Psych : No Anxiety/Panic, complaining of depression, states she does not want to wake up again. Denies any plans for SI or HI Heme/Lymph: No Bruising, No Bleeding,No Lymphadenopathy Endocrine : No Polyuria, No Polydipsia, No Temperature Intolerance Yes all other systems are reviewed and are negative and Unobtainable due to mental status Constitutional: Denies chills, Denies fatigue, Denies fever(s) and Denies headache(s) Eyes: Denies change in vision Denies dizziness, Denies headache(s), Denies nasal congestion and Denies nasal discharge Cardiovascular: Denies chest pain, Denies lightheadedness and Denies dyspnea Respiratory: Denies cough and Denies dyspnea Gastrointestinal: Denies constipation, Denies diarrhea, Denies nausea and Denies vomiting Musculoskeletal: Denies arthralgias and Denies muscle weakness Skin/Breast: Denies rash Denies confusion, Denies dizziness and Denies headache(s) Psychiatric: Reports as per HPI and Denies confusion Endocrine: Denies fatigue Hematologic/Lymphatic: Denies easy bleeding and Denies easy bruising Allergic/Immunologic: Denies urticaria Mental Status Exam Mental Status Exam Narrative: Pt is alert and oriented; behavior is more calm, not agitated or exit seeking; patient is not in distress; dressed in hospital attire with unkempt hair; mood is normal and affect more calm; less guarded; eye contact appropriate; Speech is normal rate, volume, prosody, not latent; no psychomotor agitation/retardation alternatively; thought process is organized and goal directed; Thought content is vacuous but no paranoid delusional thinking expressed; denies SI/HI; Patients insight and judgment impaired, a little improved. Diagnostics Vital Signs (24Hr): Vital Signs - 24 hr 05/19/24 08:44 05/19/24 08:59 05/19/24 09:21 Temperature 97.7 F 97.7 F Pulse Rate 80 77 79 Respiratory Rate 16 16 17 Blood Pressure 132/74 133/73 131/68 Pulse Oximetry 97 97 97 Oxygen Delivery Method Room Air Room Air Room Air 05/19/24 19:46 05/20/24 08:17 Temperature 98.4 F 97.5 F Pulse Rate 86 75 Respiratory Rate 18 14 Blood Pressure 114/64 127/72 Pulse Oximetry 96 96 Oxygen Delivery Method Room Air Room Air BMI result Body Mass Index 22.2 Labs 04/24/24 16:11 04/26/24 07:26 Medications Medications Current Medications Acetaminophen (Acetaminophen 325 Mg Tablet) 650 mg PO Q6H PRN PRN Reason: Headache/Pain Mild Scale (1-3) Last Admin: 05/17/24 10:17 Dose: 650 mg Al Hydroxide/Mg Hydroxide (Magnesium Hydrox/Alum Hydrox 30 Ml Oral.Susp) 30 ml PO Q6H PRN PRN Reason: Heartburn/Nausea Benztropine Mesylate (Benztropine Mesylate 0.5 Mg Tablet) 0.25 mg PO BID [facility] Last Admin: 05/20/24 08:18 Dose: 0.25 mg Docusate Sodium (Docusate Sodium 100 Mg Capsule) 100 mg PO BID [facility] Last Admin: 05/20/24 08:18 Dose: 100 mg Gabapentin (Gabapentin 300 Mg Capsule) 600 mg PO BEDTIME [facility] Last Admin: 05/19/24 19:43 Dose: 600 mg Hydroxyzine HCl (Hydroxyzine Hcl 25 Mg Tablet) 25 mg PO Q6H PRN PRN Reason: Anxiety Last Admin: 05/15/24 20:47 Dose: 25 mg Magnesium Hydroxide (Milk Of Magnesia 30 Ml Oral.Susp) 30 ml PO DAILY PRN PRN Reason: Constipation Multi-Ingred Cream/Lotion/Oil/Oint (Mineral Oil/Petrolatum,White 106 Gm Tube) 1 appl TOPICAL BID [facility]; Protocol Last Admin: 05/20/24 08:19 Dose: Not Given Naloxone HCl (Naloxone Hcl 0.4 Mg/Ml Vial) 0.04 mg IVPUSH Q5M PRN PRN Reason: Excessive sedation or RR < 8 Olanzapine (Olanzapine 5 Mg Tablet) 5 mg PO TID PRN PRN Reason: agitation Last Admin: 05/19/24 19:43 Dose: 5 mg Omeprazole (Omeprazole 20 Mg Capsule.Dr) 20 mg PO BID [facility] Last Admin: 05/20/24 08:19 Dose: 20 mg Paliperidone (Paliperidone Er 6 Mg Tab.Er.24) 6 mg PO DAILY [facility] Last Admin: 05/20/24 08:18 Dose: 6 mg Paliperidone Palmitate (Paliperidone Palmitate 234 Mg/1.5 Ml Syringe) 234 mg IM Q30D [facility] Trazodone HCl (Trazodone Hcl 50 Mg Tablet) 50 mg PO BEDTIME MRX1 PRN PRN Reason: Insomnia Last Admin: 05/19/24 19:42 Dose: 50 mg Zolpidem Tartrate (Zolpidem Tartrate 5 Mg Tablet) 5 mg PO BEDTIME [facility] Last Admin: 05/19/24 19:43 Dose: 5 mg Allergies Allergies Allergy/AdvReac Type Severity Reaction Status Date / Time bee pollen Allergy Severe Anaphylaxis Verified 04/24/24 15:03 levofloxacin [From Levaquin] Allergy Severe Itching Verified 04/24/24 15:03 enoxaparin [From Lovenox] Allergy Intermediate Rash Verified 04/24/24 15:03 Seasonal Allergies Allergy Mild Runny Nose Verified 04/24/24 15:03 venlafaxine [From Effexor] Allergy Mild Constipatio Verified 04/24/24 15:03 n Penicillins Allergy Unknown Unknown Verified 04/24/24 15:03 Assessment & Plan Assessment & Plan (1) Bipolar 1 disorder, depressed, severe: Status: Acute Code(s): F31.4 - Bipolar disorder, current episode depressed, severe, without psychotic features Plan The patient is an elderly female with a past history of bipolar disorder and alcohol use disorder who was in this facility a few weeks ago the respond very well with ECT but she did not compliant with continuation of care. She relapsed and was readmitted. At this moment she is very depressed with suicidal ideation and severe psychomotor retardation. She agreed to restart ECT. Plan 05/08 continue tx. plan to d/c vraylar and keep latuda. continue ECT 05/09 continue tx 05/10 continue tx. 05/12 pt has become manic, paranoid, telling staff that they are trying to poison her and refusing medication.Paranoid thinking that staff is trying to harm her or someone is trying to kill her dog; Prior to this, patient consented to ECT. Today, however, she refused and tried to elope from PACU. Pt saying she does need or want ECT or medication...she says why are you doing this to me? but won't accept discussion of her depression and now lucrecia. 05/13 pt remains disorganized; trying to elope; says she does not want ect or medication. patient has affirmed HCP, her sister Jennifer, affirmed by probate court. Front Office Developer contacted HCP with nurse present (Luba Salomon) who consents to ECT even if pt refuses; also consents to antipsychotic at writers disscretion including IM -Received Invega Sustenna 234mg; restarted since she was on this last admission; will dc vraylar and lutuda as neither proved effective (f/u loading dose to follow) 05/14 pt did received ECT today without incident; on unit, pt tried to elope; would not discuss with technical proposal writer 05/15 pt a little more calm today. Says she is ok to which technical proposal writer shared that it seems ECT is helping. Pt asked if this was so and technical proposal writer again affirmed. 05/16 pt says she is feeling normal... and not depressed..in between. technical proposal writer again affirmed that ECT seems to be helping and she did not disagree....still without much insight. 05/19 continue ECT tx. She had ECT today. 05/20 continue tx. Reason for continued inpatient stay Substantial Risk for: inability to function Time Spent With Patient Time: Total time managing care of this patient today ____ minutes.
[2024-05-20 20:00] VITALS: BP 127/69; PULSE 91; RESP 16; TEMP 36.4; O2SAT 97
[2024-05-20] MEDS: Gabapentin 300 MG CAPSULE 600 MG PO (20:50)
[2024-05-20] MEDS: Zolpidem Tartrate 5 MG TABLET PO (20:50)
[2024-05-20] MEDS: traZODone HCL 50 MG TABLET PO (20:51)
[2024-05-21] VITALS (11 sets, daily range): BP systolic 103–146; BP diastolic 68–89; PULSE 74–93; RESP 16–20; TEMP 36.1–36.6; O2SAT 95–97
--- NOTE | 2024-05-21 06:42 | HO.ANESPROP2 ---
[facility] Active Problems Active Problems: All Active Problems Pre-op evaluation (Acute) Depression (Acute) Arthritis of right knee (Acute) Bipolar 1 disorder, depressed, severe (Acute) Elevated troponin (Acute) Chest discomfort (Acute) S/P cardiac catheterization (Acute) Bipolar 1 disorder (Acute) Varus deformity of knee (Acute) Osteoarthritis of left knee (Acute) Anxiety (Acute) GERD (gastroesophageal reflux disease) (Acute) Insomnia (Acute) Osteopenia (Acute) Murmur, cardiac (Acute) Status post total knee replacement, left (Acute) Acute deep vein thrombosis (DVT) of left tibial vein (Chronic) Past Medical History Medical History History of skin cancer Hx of bladder problems VITO (generalized anxiety disorder) Murmur, cardiac Hx of thyroid nodule Osteopenia Hx of skin cancer, basal cell Seasonal allergies Insomnia Constipation GERD (gastroesophageal reflux disease) Anxiety History of electroconvulsive therapy Bipolar 1 disorder Functional capacity: independent ambulation Family History Family History Mother Basal cell carcinoma (BCC) in situ of skin Osteoporosis Hyperlipidemia Father CAD (coronary artery disease) Alcoholism Sister Osteoporosis Depression Brother Cancer of tongue Cancer of skin Family history of problems with anesthesia: No Surgical History Surgical History Hx of colonoscopy H/O elbow surgery History of back surgery History of Problems with Anesthesia: No Social History Social History Household Members: Other Household Members Other:: Dog. Housing: Apartment Are you a primary hospice patient care secretary to a significant other at home: No Do you presently have visiting nurse or other home services: Yes Unable to assess alcohol history related to: Unable to respond Patient Tobacco Use Status: Never used Tobacco Tobacco use type: Cigarette Years Smoked: 30+, now vapes Smoked in Last 30 Days: Yes e-Cigarette/Vaping Use: Currently Using Frequency of e-Cigarette/Vaping Use: Not a lot. Patient Interested in Nicotine Replacement: No Patient Given Instructions on How to Stop Smoking: No Second Hand Smoke Exposure: No Use of substances other than those prescribed or required for medical reasons: No Substance Use Type: Crack/Cocaine Currently Displaying Signs/Symptoms of Drug Intoxication Withdrawal: No Any prior treatment program specific to substance use: No Have you been hit, kicked, punched, or otherwise hurt by someone within the past year? If so, by whom?: No Do you feel safe in your current relationship?: No Current Relationship Is there a partner from a previous relationship who is making you feel unsafe now?: No Are you made to feel afraid or neglected: No Advance Directives: No Advance Directives Information Provided: No Do you have thoughts of harming others: None Do you have a plan to hurt others: No Plan Recently lost weight without trying: Yes How much weight loss: 2-13 pounds Eating poorly because of decreased appetite: Yes Nutrition screen score: 4 Nutrition Risks: No Nutritional Risk Patient : No : No Poor oral hygiene: No service: No Current occupational status: unemployed and retired 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 Sexual orientation: Straight/Heterosexual Meds Allergies Allergy/AdvReac Type Severity Reaction Status Date / Time bee pollen Allergy Severe Anaphylaxis Verified 04/24/24 15:03 levofloxacin [From Levaquin] Allergy Severe Itching Verified 04/24/24 15:03 enoxaparin [From Lovenox] Allergy Intermediate Rash Verified 04/24/24 15:03 Seasonal Allergies Allergy Mild Runny Nose Verified 04/24/24 15:03 venlafaxine [From Effexor] Allergy Mild Constipatio Verified 04/24/24 15:03 n Penicillins Allergy Unknown Unknown Verified 04/24/24 15:03 Active Medications: Current Medications Acetaminophen (Acetaminophen 325 Mg Tablet) 650 mg PO Q6H PRN PRN Reason: Headache/Pain Mild Scale (1-3) Last Admin: 05/17/24 10:17 Dose: 650 mg Al Hydroxide/Mg Hydroxide (Magnesium Hydrox/Alum Hydrox 30 Ml Oral.Susp) 30 ml PO Q6H PRN PRN Reason: Heartburn/Nausea Benztropine Mesylate (Benztropine Mesylate 0.5 Mg Tablet) 0.25 mg PO BID [facility] Last Admin: 05/20/24 20:50 Dose: 0.25 mg Docusate Sodium (Docusate Sodium 100 Mg Capsule) 100 mg PO BID [facility] [place] Last Admin: 05/20/24 20:51 Dose: 100 mg Gabapentin (Gabapentin 300 Mg Capsule) 600 mg PO BEDTIME [facility] Last Admin: 05/20/24 20:50 Dose: 600 mg Hydroxyzine HCl (Hydroxyzine Hcl 25 Mg Tablet) 25 mg PO Q6H PRN PRN Reason: Anxiety Last Admin: 05/15/24 20:47 Dose: 25 mg Lactated Ringer's (Lr) 1,000 mls @ 50 mls/hr IVCONT .Q20H [facility] Magnesium Hydroxide (Milk Of Magnesia 30 Ml Oral.Susp) 30 ml PO DAILY PRN PRN Reason: Constipation Multi-Ingred Cream/Lotion/Oil/Oint (Mineral Oil/Petrolatum,White 106 Gm Tube) 1 appl TOPICAL BID [facility]; Protocol Last Admin: 05/20/24 21:11 Dose: Not Given Naloxone HCl (Naloxone Hcl 0.4 Mg/Ml Vial) 0.04 mg IVPUSH Q5M PRN PRN Reason: Excessive sedation or RR < 8 Olanzapine (Olanzapine 5 Mg Tablet) 5 mg PO TID PRN PRN Reason: agitation Last Admin: 05/19/24 19:43 Dose: 5 mg Omeprazole (Omeprazole 20 Mg Capsule.Dr) 20 mg PO BID [facility] Last Admin: 05/20/24 20:51 Dose: 20 mg Paliperidone (Paliperidone Er 6 Mg Tab.Er.24) 6 mg PO DAILY [facility] Last Admin: 05/20/24 08:18 Dose: 6 mg Paliperidone Palmitate (Paliperidone Palmitate 234 Mg/1.5 Ml Syringe) 234 mg IM Q30D [facility] Trazodone HCl (Trazodone Hcl 50 Mg Tablet) 50 mg PO BEDTIME MRX1 PRN PRN Reason: Insomnia Last Admin: 05/20/24 20:51 Dose: 50 mg Zolpidem Tartrate (Zolpidem Tartrate 5 Mg Tablet) 5 mg PO BEDTIME [facility] Last Admin: 05/20/24 20:50 Dose: 5 mg Home Medications ?Medication ?Instructions ?Recorded ?Confirmed ?Last Taken ?Type mirtazapine 30 mg tablet 30 mg PO BEDTIME 04/24/24 04/24/24 04/23/24 History omeprazole 20 mg capsule,delayed 20 mg PO DAILY@0630 04/25/24 04/25/24 Unknown History release thiamine HCl (vitamin B1) 100 mg 100 mg PO BID 04/25/24 04/25/24 Unknown History tablet (Vitamin B-1) Exam Height,Weight and Vital Signs: Height 5 ft 7 in Weight 64.319 kg Last Vital Signs Temp 98 F 11/20/24 06:32 Pulse 88 05/21/24 06:32 Resp 16 05/21/24 06:32 BP 103/68 05/21/24 06:32 Pulse Ox 96 05/21/24 06:32 O2 Del Method Room Air 05/21/24 06:32 O2 Flow Rate 2 05/19/24 08:19 Pertinent Lab Results Pertinent Lab Results: Laboratory Tests 04/24/24 04/24/24 04/26/24 16:11 19:56 07:26 WBC 5.8 RBC 4.34 Hgb 13.2 Hct 37.6 MCV 86.6 MCH 30.4 MCHC 35.1 H RDW 13.1 Plt Count 210 MPV 8.3 L Immature Gran % (Auto) 0.3 Neut % (Auto) 57.0 Lymph % (Auto) 32.2 [place] % (Auto) 9.0 Eos % (Auto) 1.0 Baso % (Auto) 0.5 Lymph # (Auto) 1.9 [place] # (Auto) 0.5 Eos # (Auto) 0.1 Baso # (Auto) 0.0 Abs Immat Gran (auto) 0.02 Absolute Neuts (auto) 3.3 Absolute Nucleated RBC 0.000 Nucleated RBC % (auto) 0.0 Sodium 139 139 Potassium 4.0 4.2 Chloride 106 107 Carbon Dioxide 26 25 Anion Gap 11 L 11 L BUN 15 21 H Creatinine 0.81 0.79 Estim Creat Clear Calc 66.4 68.1 Estimated GFR > 60 > 60 Random Glucose 101 Fasting Glucose 102 H Estimat Average Glucose 117 Hemoglobin A1c % 5.7 Calcium 9.6 9.7 Total Bilirubin 0.2 0.3 AST 21 18 ALT 11 12 Alkaline Phosphatase 91 90 Total Protein 6.8 6.7 Albumin 4.1 4.0 Triglycerides 83 Cholesterol 232 H LDL Cholesterol, Calc 157 H HDL Cholesterol 59 Vitamin B12 383 TSH 0.43 Urine Color Yellow Urine Appearance Clear Urine pH 6.5 Ur Specific [place] 1.020 Urine Protein Negative Urine Glucose (UA) Negative Urine Ketones Negative Urine Blood Negative Urine Nitrite Negative Ur Leukocyte Esterase Small (1+) H Urine RBC 0-2 Urine WBC 6-10 H Ur Squamous Epith Cells 0-2 Urine Bacteria None Seen Hyaline Casts 0-2 Salicylates < 5.0 L Urine Opiates Screen Not Detected Ur Buprenorphine Scrn Not Detected Ur Oxycodone Screen Not Detected Urine Methadone Screen Not Detected Urine Fentanyl Screen Not Detected Acetaminophen < 3 Ur Barbiturates Screen Not Detected Ur Phencyclidine Scrn Not Detected Ur Amphetamines Screen Not Detected U Benzodiazepines Scrn Not Detected Urine Cocaine Screen Not Detected U Marijuana (THC) Screen Not Detected Ethyl Alcohol < 10 Airway Mallampati Class: II (edentuloys on top) TM Dist: >3cm Neck ROM: Full Heart: rrr Lungs: cta Assessment and Plan Assessment Anesthesia Assessment: Anesthesia Plan Discussed and Chart Reviewed Final Anesthetic Review Family History of Problems with Anesthesia: No History of Problems with Anesthesia: No NPO: Yes ASA Class: III Final Preanesthetic Review: No Changes in Pt Med Stat, Meds/Allgs Chart Reviewed and Consent Obtained/Reviewed Patient Risk: Low Procedure Risk: Intermediate Anesthetic Plan Anesthetic Plan: GA Disposition: Standard PACU
--- NOTE | 2024-05-21 07:03 | MHC.SHP ---
Pre-Procedural Eval Section A - 24 Hr Update-Section A only Date of Service: 05/21/24 The patient is an INPATIENT: Yes Changes since office visit: No Cold of Flu in the past 2 weeks, No New Medical Problems, No Changes in Medication and No Patient answered all questions The patient has been examined within 24 hours of the surgical procedure. The History & Physical has been completed within 30 days and I have reviewed it.: Yes Section B - Complete if H&P > 30 days Chief Complaint: SI Details of Present Illness: depression remains but a getting little better Relevant Family History (Specify if Yes): No Relevant Social History: None Medical History: Significant History (ECT effective in past) Allergies: Allergies Allergy/AdvReac Type Severity Reaction Status Date / Time bee pollen Allergy Severe Anaphylaxis Verified 04/24/24 15:03 levofloxacin [From Levaquin] Allergy Severe Itching Verified 04/24/24 15:03 enoxaparin [From Lovenox] Allergy Intermediate Rash Verified 04/24/24 15:03 Seasonal Allergies Allergy Mild Runny Nose Verified 04/24/24 15:03 venlafaxine [From Effexor] Allergy Mild Constipatio Verified 04/24/24 15:03 n Penicillins Allergy Unknown Unknown Verified 04/24/24 15:03 Review of Systems Sugical H&P ROS: Negative: Constitution, Cardiovascular, Respiratory and Neurological Exam Surgical H&P Exam: Normal: Heart and Normal: Lungs Plan Diagnosis/Plan: Unchanged I have reviewed the history and physical and performed a pertinent physical examination on my patient. No changes have occurred unless specified. Time Spent With Patient Time: Total time managing care of this patient today ____ minutes.
--- NOTE | 2024-05-21 07:08 | HO.ECTPROC ---
ECT Procedure Note Diagnosis/Treatment Date of Service: 05/21/24 Diagnosis: Bipolar disorder (currently depressed) Previous ECT Date: 05/19/24 Current Treatment Number: 7 Treatment: Series Interval Clinical Notes: patient remains depressed but says her mood is alright which is some improvement. Time: Total time managing care of this patient today ____ minutes. ECT Settings Device: THYMATRON DGx Electrode Placement: Bifrontal Program/Pulse Width: 0.50 Energy Percent: 100 Seizure Duration By EEG (in seconds): 28 By Motor Observation (in seconds): 14 Medications Administration General Anesthetic: Etomidate (12) Muscle Relaxant: Succinylcholine (80) Ancillary Medications Miscillaneous Medications: Midazolam (2) Airway Management Airway Management: Bag Mask Ventilation Treatment Recommendations Electrode Placement: Bitemporal Program/Pulse Width: 0.50 Energy Percent: 100 Notes: pt mood is improving; talking more, smiled continue ECT series No changes Pt Tolerated Procedure w/o Issue: Yes
[2024-05-21] MEDS: Lactated Ringers 1,000 ML 50 ML IVCONT (07:21)
[2024-05-21] MEDS: Paliperidone ER 6 MG TAB.ER.24 PO (09:24)
[2024-05-21] MEDS: Omeprazole 20 MG CAPSULE.DR PO ×2 (09:24→21:12)
[2024-05-21] MEDS: Benztropine Mesylate 0.5 MG TABLET 0.25 MG PO ×2 (09:24→21:13)
[2024-05-21] MEDS: Docusate Sodium 100 MG CAPSULE PO ×2 (09:24→21:13)
--- NOTE | 2024-05-21 15:50 | HO.PSYCHPN ---
Subjective Subjective Date of Service: 05/21/24 Reason For Visit: SI Subjective Notes: Conditional Voluntary Healthcare Proxy: Yes Interim History: Pt had ECT yesterday. She does present as brighter, but again with severe poverty of thought. Evident underlying cognitive impairments. She denies SI/HI. She is visible on the unit, not social with peers. She is suspicious of staff and tells this scientific writer she is not sure she can trust people here. No exit seeking behaviors, pending family meeting to discuss aftercare plan. Review of Systems Review of Systems Constitutional : No Weight loss, No Fever, No Chills, No Night Sweats, No Fatigue, No Malaise ENT/Mouth : No Hearing loss, No Ear Pain, No Nasal Congestion, No Sinus Pain, No Hoarseness, No sore throat, No Rhinorrhea, No Swallowing Difficulty Eyes: No Eye Pain, No Swelling, No Redness, No Foreign Body, No Discharge, No Vision Changes Cardiovascular : No Chest Pain, No SOB, No Dyspnea on Exertion, No Orthopnea, No Edema, No Palpitations Respiratory : No Cough, No Sputum, No Wheezing, No Smoke Exposure, No Dyspnea Gastrointestinal : No Nausea, No Vomiting, No Diarrhea, No Constipation, No abdominal Pain, No Hematochezia, No Melena Genitourinary : no irregular bleeding, No Dysuria, No Urinary Frequency, No Hematuria, No Urinary Incontinence, No Urgency, No Flank Pain, No Urinary Flow Changes, No Hesitancy Musculoskeletal : No joint pain, No Myalgias, No Joint Swelling Skin : No Skin Lesions, No rash Neuro : No Weakness, No Numbness, No Paresthesias, No Loss of Consciousness, No Dizziness, No Headache Psych : No Anxiety/Panic, complaining of depression, states she does not want to wake up again. Denies any plans for SI or HI Heme/Lymph: No Bruising, No Bleeding,No Lymphadenopathy Endocrine : No Polyuria, No Polydipsia, No Temperature Intolerance Yes all other systems are reviewed and are negative and Unobtainable due to mental status Constitutional: Denies chills, Denies fatigue, Denies fever(s) and Denies headache(s) Eyes: Denies change in vision Denies dizziness, Denies headache(s), Denies nasal congestion and Denies nasal discharge Cardiovascular: Denies chest pain, Denies lightheadedness and Denies dyspnea Respiratory: Denies cough and Denies dyspnea Gastrointestinal: Denies constipation, Denies diarrhea, Denies nausea and Denies vomiting Musculoskeletal: Denies arthralgias and Denies muscle weakness Skin/Breast: Denies rash Denies confusion, Denies dizziness and Denies headache(s) Psychiatric: Reports as per HPI and Denies confusion Endocrine: Denies fatigue Hematologic/Lymphatic: Denies easy bleeding and Denies easy bruising Allergic/Immunologic: Denies urticaria Diagnostics Vital Signs (24Hr): Vital Signs - 24 hr 05/20/24 20:00 05/21/24 06:05 05/21/24 06:32 Temperature 97.5 F 97.8 F 98 F Pulse Rate 91 77 88 Respiratory Rate 16 16 16 Blood Pressure 127/69 131/70 103/68 Pulse Oximetry 97 95 96 Oxygen Delivery Method Room Air Room Air Room Air Oxygen Flow Rate 05/21/24 07:36 05/21/24 07:40 05/21/24 07:40 Temperature 97.2 F Pulse Rate 81 93 91 Respiratory Rate 20 16 16 Blood Pressure 133/69 132/78 146/89 H Pulse Oximetry 95 96 96 Oxygen Delivery Method Nasal Cannula Nasal Cannula Room Air Oxygen Flow Rate 2 2 05/21/24 07:45 05/21/24 07:50 05/21/24 07:55 Temperature Pulse Rate 85 84 84 Respiratory Rate 16 16 16 Blood Pressure 133/74 146/89 H 138/74 Pulse Oximetry 97 97 97 Oxygen Delivery Method Room Air Room Air Room Air Oxygen Flow Rate 2 2 05/21/24 08:10 05/21/24 08:25 05/21/24 09:00 Temperature 97 F 97.5 F Pulse Rate 77 74 78 Respiratory Rate 16 16 18 Blood Pressure 132/79 130/80 128/74 Pulse Oximetry 97 97 95 Oxygen Delivery Method Room Air Room Air Room Air Oxygen Flow Rate 2 BMI result Body Mass Index 22.2 Labs 04/24/24 16:11 04/26/24 07:26 Medications Medications Current Medications Acetaminophen (Acetaminophen 325 Mg Tablet) 650 mg PO Q6H PRN PRN Reason: Headache/Pain Mild Scale (1-3) Last Admin: 05/17/24 10:17 Dose: 650 mg Al Hydroxide/Mg Hydroxide (Magnesium Hydrox/Alum Hydrox 30 Ml Oral.Susp) 30 ml PO Q6H PRN PRN Reason: Heartburn/Nausea Benztropine Mesylate (Benztropine Mesylate 0.5 Mg Tablet) 0.25 mg PO BID [facility] Last Admin: 05/21/24 09:24 Dose: 0.25 mg Docusate Sodium (Docusate Sodium 100 Mg Capsule) 100 mg PO BID [facility] Last Admin: 05/21/24 09:24 Dose: 100 mg Gabapentin (Gabapentin 300 Mg Capsule) 600 mg PO BEDTIME [facility] Last Admin: 05/20/24 20:50 Dose: 600 mg Hydroxyzine HCl (Hydroxyzine Hcl 25 Mg Tablet) 25 mg PO Q6H PRN PRN Reason: Anxiety Last Admin: 05/15/24 20:47 Dose: 25 mg Magnesium Hydroxide (Milk Of Magnesia 30 Ml Oral.Susp) 30 ml PO DAILY PRN PRN Reason: Constipation Multi-Ingred Cream/Lotion/Oil/Oint (Mineral Oil/Petrolatum,White 106 Gm Tube) 1 appl TOPICAL BID [facility]; Protocol Last Admin: 05/21/24 09:26 Dose: Not Given Olanzapine (Olanzapine 5 Mg Tablet) 5 mg PO TID PRN PRN Reason: agitation Last Admin: 05/19/24 19:43 Dose: 5 mg Omeprazole (Omeprazole 20 Mg Capsule.Dr) 20 mg PO BID [facility] Last Admin: 05/21/24 09:24 Dose: 20 mg Paliperidone (Paliperidone Er 6 Mg Tab.Er.24) 6 mg PO DAILY [facility] Last Admin: 05/21/24 09:24 Dose: 6 mg Paliperidone Palmitate (Paliperidone Palmitate 234 Mg/1.5 Ml Syringe) 234 mg IM Q30D [facility] Trazodone HCl (Trazodone Hcl 50 Mg Tablet) 50 mg PO BEDTIME MRX1 PRN PRN Reason: Insomnia Last Admin: 05/20/24 20:51 Dose: 50 mg Zolpidem Tartrate (Zolpidem Tartrate 5 Mg Tablet) 5 mg PO BEDTIME [facility] Last Admin: 05/20/24 20:50 Dose: 5 mg Allergies Allergies Allergy/AdvReac Type Severity Reaction Status Date / Time bee pollen Allergy Severe Anaphylaxis Verified 04/24/24 15:03 levofloxacin [From Levaquin] Allergy Severe Itching Verified 04/24/24 15:03 enoxaparin [From Lovenox] Allergy Intermediate Rash Verified 04/24/24 15:03 Seasonal Allergies Allergy Mild Runny Nose Verified 04/24/24 15:03 venlafaxine [From Effexor] Allergy Mild Constipatio Verified 04/24/24 15:03 n Penicillins Allergy Unknown Unknown Verified 04/24/24 15:03 Assessment & Plan Assessment & Plan (1) Bipolar 1 disorder, depressed, severe: Status: Acute Code(s): F31.4 - Bipolar disorder, current episode depressed, severe, without psychotic features Plan The patient is an elderly female with a past history of bipolar disorder and alcohol use disorder who was in this facility a few weeks ago the respond very well with ECT but she did not compliant with continuation of care. She relapsed and was readmitted. At this moment she is very depressed with suicidal ideation and severe psychomotor retardation. She agreed to restart ECT. Plan 05/08 continue tx. plan to d/c vraylar and keep latuda. continue ECT 05/09 continue tx 05/10 continue tx. 05/12 pt has become manic, paranoid, telling staff that they are trying to poison her and refusing medication.Paranoid thinking that staff is trying to harm her or someone is trying to kill her dog; Prior to this, patient consented to ECT. Today, however, she refused and tried to elope from PACU. Pt saying she does need or want ECT or medication...she says why are you doing this to me? but won't accept discussion of her depression and now lucrecia. 05/13 pt remains disorganized; trying to elope; says she does not want ect or medication. patient has affirmed HCP, her sister Jennifer, affirmed by probate court. Quill Machine Tender contacted HCP with nurse present (Luba Salomon) who consents to ECT even if pt refuses; also consents to antipsychotic at writers disscretion including IM -Received Invega Sustenna 234mg; restarted since she was on this last admission; will dc vraylar and lutuda as neither proved effective (f/u loading dose to follow) 05/14 pt did received ECT today without incident; on unit, pt tried to elope; would not discuss with scientific writer 05/15 pt a little more calm today. Says she is ok to which scientific writer shared that it seems ECT is helping. Pt asked if this was so and scientific writer again affirmed. 05/16 pt says she is feeling normal... and not depressed..in between. scientific writer again affirmed that ECT seems to be helping and she did not disagree....still without much insight. 05/19 continue ECT tx. She had ECT today. 05/20 continue tx. 05/21 continue tx Reason for continued inpatient stay Substantial Risk for: inability to function Time Spent With Patient Time: Total time managing care of this patient today ____ minutes.
[2024-05-21] MEDS: Gabapentin 300 MG CAPSULE 600 MG PO (21:12)
[2024-05-21] MEDS: Zolpidem Tartrate 5 MG TABLET PO (21:13)
[2024-05-21] MEDS: hydrOXYzine HCL 25 MG TABLET PO (21:13)
[2024-05-21] MEDS: traZODone HCL 50 MG TABLET PO (21:13)
[2024-05-22 08:00] VITALS: BP 136/75; PULSE 78; RESP 16; O2SAT 96
[2024-05-22] MEDS: Paliperidone ER 6 MG TAB.ER.24 PO (08:20)
[2024-05-22] MEDS: Docusate Sodium 100 MG CAPSULE PO ×2 (08:20→21:09)
[2024-05-22] MEDS: Benztropine Mesylate 0.5 MG TABLET 0.25 MG PO ×2 (08:20→21:09)
[2024-05-22] MEDS: Omeprazole 20 MG CAPSULE.DR PO ×2 (08:20→21:09)
[2024-05-22 09:05] VITALS: BMI 23.3
--- NOTE | 2024-05-22 16:44 | HO.PSYCHPN ---
Subjective Subjective Date of Service: 05/22/24 Reason For Visit: SI Interim History: Pt slept through the night. She is suspicious of staff and reports she does not know if she can trust anyone. She denies SI/HI. She does not think she needs treatment, doesn't think she needs supports to be able t care for herself. Family meeting held t discussed underlying cognitive impairments, along with negative symptoms of her illness, discuss dx seems to be more schizoaffective disorder. Review of Systems Review of Systems Constitutional : No Weight loss, No Fever, No Chills, No Night Sweats, No Fatigue, No Malaise ENT/Mouth : No Hearing loss, No Ear Pain, No Nasal Congestion, No Sinus Pain, No Hoarseness, No sore throat, No Rhinorrhea, No Swallowing Difficulty Eyes: No Eye Pain, No Swelling, No Redness, No Foreign Body, No Discharge, No Vision Changes Cardiovascular : No Chest Pain, No SOB, No Dyspnea on Exertion, No Orthopnea, No Edema, No Palpitations Respiratory : No Cough, No Sputum, No Wheezing, No Smoke Exposure, No Dyspnea Gastrointestinal : No Nausea, No Vomiting, No Diarrhea, No Constipation, No abdominal Pain, No Hematochezia, No Melena Genitourinary : no irregular bleeding, No Dysuria, No Urinary Frequency, No Hematuria, No Urinary Incontinence, No Urgency, No Flank Pain, No Urinary Flow Changes, No Hesitancy Musculoskeletal : No joint pain, No Myalgias, No Joint Swelling Skin : No Skin Lesions, No rash Neuro : No Weakness, No Numbness, No Paresthesias, No Loss of Consciousness, No Dizziness, No Headache Psych : No Anxiety/Panic, complaining of depression, states she does not want to wake up again. Denies any plans for SI or HI Heme/Lymph: No Bruising, No Bleeding,No Lymphadenopathy Endocrine : No Polyuria, No Polydipsia, No Temperature Intolerance Yes all other systems are reviewed and are negative and Unobtainable due to mental status Constitutional: Denies chills, Denies fatigue, Denies fever(s) and Denies headache(s) Eyes: Denies change in vision Denies dizziness, Denies headache(s), Denies nasal congestion and Denies nasal discharge Cardiovascular: Denies chest pain, Denies lightheadedness and Denies dyspnea Respiratory: Denies cough and Denies dyspnea Gastrointestinal: Denies constipation, Denies diarrhea, Denies nausea and Denies vomiting Musculoskeletal: Denies arthralgias and Denies muscle weakness Skin/Breast: Denies rash Denies confusion, Denies dizziness and Denies headache(s) Psychiatric: Reports as per HPI and Denies confusion Endocrine: Denies fatigue Hematologic/Lymphatic: Denies easy bleeding and Denies easy bruising Allergic/Immunologic: Denies urticaria Mental Status Exam Mental Status Exam Narrative: Pt is alert, not oriented to situation; behavior is more calm, not agitated or exit seeking; patient is not in distress; dressed in hospital attire with unkempt hair; mood is normal and affect is constricted; less guarded; eye contact intense at times, ; Speech is normal rate, volume, prosody, somewhat latent; no psychomotor agitation/retardation alternatively; thought process is severe poverty of thought;; denies SI/HI; Patients insight and judgment impaired- even at baseline. Diagnostics Vital Signs (24Hr): Vital Signs - 24 hr 05/21/24 20:00 05/22/24 08:00 Temperature 97.3 F Pulse Rate 79 78 Respiratory Rate 17 16 Blood Pressure 122/73 136/75 Pulse Oximetry 96 96 Oxygen Delivery Method Room Air BMI result Body Mass Index 23.3 Labs 04/24/24 16:11 04/26/24 07:26 Medications Medications Current Medications Acetaminophen (Acetaminophen 325 Mg Tablet) 650 mg PO Q6H PRN PRN Reason: Headache/Pain Mild Scale (1-3) Last Admin: 05/17/24 10:17 Dose: 650 mg Al Hydroxide/Mg Hydroxide (Magnesium Hydrox/Alum Hydrox 30 Ml Oral.Susp) 30 ml PO Q6H PRN PRN Reason: Heartburn/Nausea Benztropine Mesylate (Benztropine Mesylate 0.5 Mg Tablet) 0.25 mg PO BID [facility] Last Admin: 05/22/24 08:20 Dose: 0.25 mg Docusate Sodium (Docusate Sodium 100 Mg Capsule) 100 mg PO BID [facility] Last Admin: 05/22/24 08:20 Dose: 100 mg Gabapentin (Gabapentin 300 Mg Capsule) 600 mg PO BEDTIME [facility] Last Admin: 05/21/24 21:12 Dose: 600 mg Hydroxyzine HCl (Hydroxyzine Hcl 25 Mg Tablet) 25 mg PO Q6H PRN PRN Reason: Anxiety Last Admin: 05/21/24 21:13 Dose: 25 mg Magnesium Hydroxide (Milk Of Magnesia 30 Ml Oral.Susp) 30 ml PO DAILY PRN PRN Reason: Constipation Multi-Ingred Cream/Lotion/Oil/Oint (Mineral Oil/Petrolatum,White 106 Gm Tube) 1 appl TOPICAL BID [facility]; Protocol Last Admin: 05/22/24 08:21 Dose: Not Given Olanzapine (Olanzapine 5 Mg Tablet) 5 mg PO TID PRN PRN Reason: agitation Last Admin: 05/19/24 19:43 Dose: 5 mg Omeprazole (Omeprazole 20 Mg Capsule.Dr) 20 mg PO BID [facility] Last Admin: 05/22/24 08:20 Dose: 20 mg Paliperidone (Paliperidone Er 6 Mg Tab.Er.24) 6 mg PO DAILY [facility] Last Admin: 05/22/24 08:20 Dose: 6 mg Paliperidone Palmitate (Paliperidone Palmitate 234 Mg/1.5 Ml Syringe) 234 mg IM Q30D [facility] Trazodone HCl (Trazodone Hcl 50 Mg Tablet) 50 mg PO BEDTIME MRX1 PRN PRN Reason: Insomnia Last Admin: 05/21/24 21:13 Dose: 50 mg Zolpidem Tartrate (Zolpidem Tartrate 5 Mg Tablet) 5 mg PO BEDTIME [facility] Last Admin: 05/21/24 21:13 Dose: 5 mg Allergies Allergies Allergy/AdvReac Type Severity Reaction Status Date / Time bee pollen Allergy Severe Anaphylaxis Verified 04/24/24 15:03 levofloxacin [From Levaquin] Allergy Severe Itching Verified 04/24/24 15:03 enoxaparin [From Lovenox] Allergy Intermediate Rash Verified 04/24/24 15:03 Seasonal Allergies Allergy Mild Runny Nose Verified 04/24/24 15:03 venlafaxine [From Effexor] Allergy Mild Constipatio Verified 04/24/24 15:03 n Penicillins Allergy Unknown Unknown Verified 04/24/24 15:03 Assessment & Plan Assessment & Plan (1) Schizoaffective disorder: Status: Acute Code(s): F25.9 - Schizoaffective disorder, unspecified Plan The patient is an elderly female with a past history of bipolar disorder and alcohol use disorder who was in this facility a few weeks ago the respond very well with ECT but she did not compliant with continuation of care. She relapsed and was readmitted. At this moment she is very depressed with suicidal ideation and severe psychomotor retardation. She agreed to restart ECT. Plan 05/08 continue tx. plan to d/c vraylar and keep latuda. continue ECT 05/09 continue tx 05/10 continue tx. 05/12 pt has become manic, paranoid, telling staff that they are trying to poison her and refusing medication.Paranoid thinking that staff is trying to harm her or someone is trying to kill her dog; Prior to this, patient consented to ECT. Today, however, she refused and tried to elope from PACU. Pt saying she does need or want ECT or medication...she says why are you doing this to me? but won't accept discussion of her depression and now lucrecia. 05/13 pt remains disorganized; trying to elope; says she does not want ect or medication. patient has affirmed HCP, her sister Jennifer, affirmed by probate court. Under Water Assistant contacted HCP with nurse present (Luba Salomon) who consents to ECT even if pt refuses; also consents to antipsychotic at writers disscretion including IM -Received Invega Sustenna 234mg; restarted since she was on this last admission; will dc vraylar and lutuda as neither proved effective (f/u loading dose to follow) 05/14 pt did received ECT today without incident; on unit, pt tried to elope; would not discuss with financial underwriter 05/15 pt a little more calm today. Says she is ok to which financial underwriter shared that it seems ECT is helping. Pt asked if this was so and financial underwriter again affirmed. 05/16 pt says she is feeling normal... and not depressed..in between. financial underwriter again affirmed that ECT seems to be helping and she did not disagree....still without much insight. 05/19 continue ECT tx. She had ECT today. 05/20 continue tx. 05/22 continue tx Reason for continued inpatient stay Substantial Risk for: inability to function Time Spent With Patient Time: Total time managing care of this patient today ____ minutes.
[2024-05-22 20:00] VITALS: BP 118/62; PULSE 79; RESP 16; TEMP 36.4; O2SAT 98
[2024-05-22] MEDS: Zolpidem Tartrate 5 MG TABLET PO (21:09)
[2024-05-22] MEDS: Gabapentin 300 MG CAPSULE 600 MG PO (21:09)
[2024-05-23] VITALS (10 sets, daily range): BP systolic 113–154; BP diastolic 67–82; PULSE 73–91; RESP 15–23; TEMP 36–37.1; O2SAT 94–100
--- NOTE | 2024-05-23 06:44 | HO.ANESPROP2 ---
[facility] Active Problems Active Problems: All Active Problems Pre-op evaluation (Acute) Depression (Acute) Arthritis of right knee (Acute) Bipolar 1 disorder, depressed, severe (Acute) Elevated troponin (Acute) Chest discomfort (Acute) S/P cardiac catheterization (Acute) Bipolar 1 disorder (Acute) Varus deformity of knee (Acute) Osteoarthritis of left knee (Acute) Anxiety (Acute) GERD (gastroesophageal reflux disease) (Acute) Insomnia (Acute) Osteopenia (Acute) Murmur, cardiac (Acute) Status post total knee replacement, left (Acute) Acute deep vein thrombosis (DVT) of left tibial vein (Chronic) Past Medical History Medical History History of skin cancer Hx of bladder problems VITO (generalized anxiety disorder) Murmur, cardiac Hx of thyroid nodule Osteopenia Hx of skin cancer, basal cell Seasonal allergies Insomnia Constipation GERD (gastroesophageal reflux disease) Anxiety History of electroconvulsive therapy Bipolar 1 disorder Functional capacity: independent ambulation Family History Family History Mother Basal cell carcinoma (BCC) in situ of skin Osteoporosis Hyperlipidemia Father CAD (coronary artery disease) Alcoholism Sister Osteoporosis Depression Brother Cancer of tongue Cancer of skin Family history of problems with anesthesia: No Surgical History Surgical History Hx of colonoscopy H/O elbow surgery History of back surgery History of Problems with Anesthesia: No Social History Social History Household Members: Other Household Members Other:: Dog. Housing: Apartment Are you a primary caregivers homecare to a significant other at home: No Do you presently have visiting nurse or other home services: Yes Unable to assess alcohol history related to: Unable to respond Patient Tobacco Use Status: Never used Tobacco Tobacco use type: Cigarette Years Smoked: 30+, now vapes Smoked in Last 30 Days: Yes e-Cigarette/Vaping Use: Currently Using Frequency of e-Cigarette/Vaping Use: Not a lot. Patient Interested in Nicotine Replacement: No Patient Given Instructions on How to Stop Smoking: No Second Hand Smoke Exposure: No Use of substances other than those prescribed or required for medical reasons: No Substance Use Type: Crack/Cocaine Currently Displaying Signs/Symptoms of Drug Intoxication Withdrawal: No Any prior treatment program specific to substance use: No Have you been hit, kicked, punched, or otherwise hurt by someone within the past year? If so, by whom?: No Do you feel safe in your current relationship?: No Current Relationship Is there a partner from a previous relationship who is making you feel unsafe now?: No Are you made to feel afraid or neglected: No Advance Directives: No Advance Directives Information Provided: No Do you have thoughts of harming others: None Do you have a plan to hurt others: No Plan Recently lost weight without trying: Yes How much weight loss: 2-13 pounds Eating poorly because of decreased appetite: Yes Nutrition screen score: 4 Nutrition Risks: No Nutritional Risk Patient : No : No Poor oral hygiene: No service: No Current occupational status: unemployed and retired 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 Sexual orientation: Straight/Heterosexual Meds Allergies Allergy/AdvReac Type Severity Reaction Status Date / Time bee pollen Allergy Severe Anaphylaxis Verified 04/24/24 15:03 levofloxacin [From Levaquin] Allergy Severe Itching Verified 04/24/24 15:03 enoxaparin [From Lovenox] Allergy Intermediate Rash Verified 04/24/24 15:03 Seasonal Allergies Allergy Mild Runny Nose Verified 04/24/24 15:03 venlafaxine [From Effexor] Allergy Mild Constipatio Verified 04/24/24 15:03 n Penicillins Allergy Unknown Unknown Verified 04/24/24 15:03 Active Medications: Current Medications Acetaminophen (Acetaminophen 325 Mg Tablet) 650 mg PO Q6H PRN PRN Reason: Headache/Pain Mild Scale (1-3) Last Admin: 05/17/24 10:17 Dose: 650 mg Al Hydroxide/Mg Hydroxide (Magnesium Hydrox/Alum Hydrox 30 Ml Oral.Susp) 30 ml PO Q6H PRN PRN Reason: Heartburn/Nausea Benztropine Mesylate (Benztropine Mesylate 0.5 Mg Tablet) 0.25 mg PO BID REPLACED BY [facility] Last Admin: 05/22/24 21:09 Dose: 0.25 mg Docusate Sodium (Docusate Sodium 100 Mg Capsule) 100 mg PO BID REPLACED BY [facility] Last Admin: 05/22/24 21:09 Dose: 100 mg Gabapentin (Gabapentin 300 Mg Capsule) 600 mg PO BEDTIME REPLACED BY [facility] Last Admin: 05/22/24 21:09 Dose: 600 mg Hydroxyzine HCl (Hydroxyzine Hcl 25 Mg Tablet) 25 mg PO Q6H PRN PRN Reason: Anxiety Last Admin: 05/21/24 21:13 Dose: 25 mg Lactated Ringer's (Lr) 1,000 mls @ 50 mls/hr IVCONT .Q20H [facility] Magnesium Hydroxide (Milk Of Magnesia 30 Ml Oral.Susp) 30 ml PO DAILY PRN PRN Reason: Constipation Multi-Ingred Cream/Lotion/Oil/Oint (Mineral Oil/Petrolatum,White 106 Gm Tube) 1 appl TOPICAL BID [facility]; Protocol Last Admin: 05/22/24 21:12 Dose: Not Given Olanzapine (Olanzapine 5 Mg Tablet) 5 mg PO TID PRN PRN Reason: agitation Last Admin: 05/19/24 19:43 Dose: 5 mg Omeprazole (Omeprazole 20 Mg Capsule.Dr) 20 mg PO BID [facility] Last Admin: 05/22/24 21:09 Dose: 20 mg Paliperidone (Paliperidone Er 6 Mg Tab.Er.24) 6 mg PO DAILY REPLACED BY [facility] Last Admin: 05/22/24 08:20 Dose: 6 mg Paliperidone Palmitate (Paliperidone Palmitate 234 Mg/1.5 Ml Syringe) 234 mg IM Q30D REPLACED BY [facility] Trazodone HCl (Trazodone Hcl 50 Mg Tablet) 50 mg PO BEDTIME MRX1 PRN PRN Reason: Insomnia Last Admin: 05/21/24 21:13 Dose: 50 mg Zolpidem Tartrate (Zolpidem Tartrate 5 Mg Tablet) 5 mg PO BEDTIME [facility] Last Admin: 05/22/24 21:09 Dose: 5 mg Home Medications ?Medication ?Instructions ?Recorded ?Confirmed ?Last Taken ?Type mirtazapine 30 mg tablet 30 mg PO BEDTIME 04/24/24 04/24/24 04/23/24 History omeprazole 20 mg capsule,delayed 20 mg PO DAILY@0630 04/25/24 04/25/24 Unknown History release thiamine HCl (vitamin B1) 100 mg 100 mg PO BID 04/25/24 04/25/24 Unknown History tablet (Vitamin B-1) Exam Height,Weight and Vital Signs: Height 5 ft 7 in Weight 67.404 kg Last Vital Signs Temp 97.3 F 05/23/24 06:33 Pulse 75 05/23/24 06:33 Resp 19 11/22/24 06:33 BP 116/79 05/23/24 06:33 Pulse Ox 97 05/23/24 06:33 O2 Del Method Room Air 05/23/24 06:33 O2 Flow Rate 2 05/21/24 08:25 Pertinent Lab Results Pertinent Lab Results: Laboratory Tests 04/24/24 04/24/24 04/26/24 16:11 19:56 07:26 WBC 5.8 RBC 4.34 Hgb 13.2 Hct 37.6 MCV 86.6 MCH 30.4 MCHC 35.1 H RDW 13.1 Plt Count 210 MPV 8.3 L Immature Gran % (Auto) 0.3 Neut % (Auto) 57.0 Lymph % (Auto) 32.2 [place] % (Auto) 9.0 Eos % (Auto) 1.0 Baso % (Auto) 0.5 Lymph # (Auto) 1.9 [place] # (Auto) 0.5 Eos # (Auto) 0.1 Baso # (Auto) 0.0 Abs Immat Gran (auto) 0.02 Absolute Neuts (auto) 3.3 Absolute Nucleated RBC 0.000 Nucleated RBC % (auto) 0.0 Sodium 139 139 Potassium 4.0 4.2 Chloride 106 107 Carbon Dioxide 26 25 Anion Gap 11 L 11 L BUN 15 21 H Creatinine 0.81 0.79 Estim Creat Clear Calc 66.4 68.1 Estimated GFR > 60 > 60 Random Glucose 101 Fasting Glucose 102 H Estimat Average Glucose 117 Hemoglobin A1c % 5.7 Calcium 9.6 9.7 Total Bilirubin 0.2 0.3 AST 21 18 ALT 11 12 Alkaline Phosphatase 91 90 Total Protein 6.8 6.7 Albumin 4.1 4.0 Triglycerides 83 Cholesterol 232 H LDL Cholesterol, Calc 157 H HDL Cholesterol 59 Vitamin B12 383 TSH 0.43 Urine Color Yellow Urine Appearance Clear Urine pH 6.5 Ur Specific [place] 1.020 Urine Protein Negative Urine Glucose (UA) Negative Urine Ketones Negative Urine Blood Negative Urine Nitrite Negative Ur Leukocyte Esterase Small (1+) H Urine RBC 0-2 Urine WBC 6-10 H Ur Squamous Epith Cells 0-2 Urine Bacteria None Seen Hyaline Casts 0-2 Salicylates < 5.0 L Urine Opiates Screen Not Detected Ur Buprenorphine Scrn Not Detected Ur Oxycodone Screen Not Detected Urine Methadone Screen Not Detected Urine Fentanyl Screen Not Detected Acetaminophen < 3 Ur Barbiturates Screen Not Detected Ur Phencyclidine Scrn Not Detected Ur Amphetamines Screen Not Detected U Benzodiazepines Scrn Not Detected Urine Cocaine Screen Not Detected U Marijuana (THC) Screen Not Detected Ethyl Alcohol < 10 Airway Mallampati Class: II TM Dist: >3cm Neck ROM: Full Denture: Upper Heart: rrr Lungs: cta Assessment and Plan Assessment Anesthesia Assessment: Anesthesia Plan Discussed and Chart Reviewed Final Anesthetic Review Family History of Problems with Anesthesia: No History of Problems with Anesthesia: No NPO: Yes ASA Class: III Final Preanesthetic Review: No Changes in Pt Med Stat, Meds/Allgs Chart Reviewed and Consent Obtained/Reviewed Patient Risk: Intermediate Procedure Risk: Intermediate Anesthetic Plan Anesthetic Plan: GA Disposition: Standard PACU
[2024-05-23] MEDS: Lactated Ringers 1,000 ML 50 ML IVCONT (06:46)
--- NOTE | 2024-05-23 07:04 | MHC.SHP ---
Pre-Procedural Eval Section A - 24 Hr Update-Section A only Date of Service: 05/23/24 The patient is an INPATIENT: Yes Changes since office visit: No Cold of Flu in the past 2 weeks, No New Medical Problems, No Changes in Medication and No Patient answered all questions The patient has been examined within 24 hours of the surgical procedure. The History & Physical has been completed within 30 days and I have reviewed it.: Yes Section B - Complete if H&P > 30 days Chief Complaint: SI Allergies: Allergies Allergy/AdvReac Type Severity Reaction Status Date / Time bee pollen Allergy Severe Anaphylaxis Verified 04/24/24 15:03 levofloxacin [From Levaquin] Allergy Severe Itching Verified 04/24/24 15:03 enoxaparin [From Lovenox] Allergy Intermediate Rash Verified 04/24/24 15:03 Seasonal Allergies Allergy Mild Runny Nose Verified 04/24/24 15:03 venlafaxine [From Effexor] Allergy Mild Constipatio Verified 04/24/24 15:03 n Penicillins Allergy Unknown Unknown Verified 04/24/24 15:03 Plan I have reviewed the history and physical and performed a pertinent physical examination on my patient. No changes have occurred unless specified. Time Spent With Patient Time: Total time managing care of this patient today ____ minutes.
--- NOTE | 2024-05-23 07:55 | HO.ECTPROC ---
ECT Procedure Note Diagnosis/Treatment Date of Service: 05/23/24 Diagnosis: Bipolar disorder Previous ECT Date: 05/21/24 Treatment: Series Interval Clinical Notes: The patient reported no depression but she looks dysphoric, with a brighter affect than before. No side effects with previous ECT. ECT done as usual, she had a motro seizure evident for 24s but the computer didn't registered. On EEG, she had seizure activity for 41s. Woke up well, received Midazolam 2 mg as usual. No complications, woke up well. Time: Total time managing care of this patient today _30___ minutes. ECT Settings Device: THYMATRON DGx Electrode Placement: Bifrontal Program/Pulse Width: 0.50 Energy Percent: 100 Seizure Duration By EEG (in seconds): 0 (seizure activity noted until 41s but not registered by the computer) By Motor Observation (in seconds): 24 Medications Administration General Anesthetic: Etomidate (12) Muscle Relaxant: Succinylcholine (100) Airway Management Airway Management: Bag Mask Ventilation Treatment Recommendations No Changes Recommended: No change Pt Tolerated Procedure w/o Issue: Yes
[2024-05-23] MEDS: Benztropine Mesylate 0.5 MG TABLET 0.25 MG PO ×2 (09:16→20:50)
[2024-05-23] MEDS: Omeprazole 20 MG CAPSULE.DR PO ×2 (09:16→20:50)
[2024-05-23] MEDS: Docusate Sodium 100 MG CAPSULE PO ×2 (09:17→20:50)
[2024-05-23] MEDS: Paliperidone ER 6 MG TAB.ER.24 PO (09:17)
--- NOTE | 2024-05-23 13:03 | HO.PSYCHPN ---
Subjective Subjective Date of Service: 05/23/24 Reason For Visit: SI Subjective Notes: Conditional Voluntary Interim History: The nursing staff reported that she still depressed, she attended to ECT today with no complications. The school social worker reported they have a family meeting yesterday and apparently there were issues with the disposition. On interview the patient denies new symptoms she looks despondent but with slightly brighter affect. Still depressed. We will continue with ECT. Mental Status Exam Mental Status Exam Patient Appearance: Appropriate Patient Orientation: Person and Situation Level of Consciousness: Awake and Appropriate Patient Behavior: Guarded and Passive Mood Description: Withdrawn Affect Description: Constricted Patient Cognition Impaired: Yes Ability to Follow Directions: Good Speech Pattern: Clear Hallucinations: None Delusions: Not Present Thought Process: Distracted and Slowed Thinking Thought Content: positive for Poverty of Content Judgement: Poor Diagnostics Vital Signs (24Hr): Vital Signs - 24 hr 05/22/24 20:00 05/23/24 06:13 05/23/24 06:33 Temperature 97.6 F 96.8 F 97.3 F Pulse Rate 79 77 75 Respiratory Rate 16 16 19 Blood Pressure 118/62 134/81 116/79 Pulse Oximetry 98 97 97 Oxygen Delivery Method Room Air Room Air Oxygen Flow Rate 05/23/24 08:00 05/23/24 08:05 05/23/24 08:10 Temperature 97.6 F Pulse Rate 73 84 91 Respiratory Rate 16 23 H 20 Blood Pressure 117/67 139/80 154/82 H Pulse Oximetry 100 95 95 Oxygen Delivery Method Nasal Cannula with ETCO2 Nasal Cannula with ETCO2 Room Air Oxygen Flow Rate 2 2 05/23/24 08:15 05/23/24 08:30 05/23/24 08:40 Temperature 97.9 F Pulse Rate 87 76 76 Respiratory Rate 15 17 17 Blood Pressure 141/70 H 140/72 H 143/81 H Pulse Oximetry 94 94 96 Oxygen Delivery Method Nasal Cannula with ETCO2 Room Air Room Air Oxygen Flow Rate 2 05/23/24 09:12 Temperature 98.8 F Pulse Rate 78 Respiratory Rate 15 Blood Pressure 124/74 Pulse Oximetry 95 Oxygen Delivery Method Oxygen Flow Rate BMI result Body Mass Index 23.3 Labs 04/24/24 16:11 04/26/24 07:26 Medications Medications Current Medications Acetaminophen (Acetaminophen 325 Mg Tablet) 650 mg PO Q6H PRN PRN Reason: Headache/Pain Mild Scale (1-3) Last Admin: 11/16/24 10:17 Dose: 650 mg Al Hydroxide/Mg Hydroxide (Magnesium Hydrox/Alum Hydrox 30 Ml Oral.Susp) 30 ml PO Q6H PRN PRN Reason: Heartburn/Nausea Benztropine Mesylate (Benztropine Mesylate 0.5 Mg Tablet) 0.25 mg PO BID [facility] Last Admin: 05/23/24 09:16 Dose: 0.25 mg Docusate Sodium (Docusate Sodium 100 Mg Capsule) 100 mg PO BID [facility] Last Admin: 05/23/24 09:17 Dose: 100 mg Gabapentin (Gabapentin 300 Mg Capsule) 600 mg PO BEDTIME [facility] Last Admin: 05/22/24 21:09 Dose: 600 mg Hydroxyzine HCl (Hydroxyzine Hcl 25 Mg Tablet) 25 mg PO Q6H PRN PRN Reason: Anxiety Last Admin: 05/21/24 21:13 Dose: 25 mg Magnesium Hydroxide (Milk Of Magnesia 30 Ml Oral.Susp) 30 ml PO DAILY PRN PRN Reason: Constipation Multi-Ingred Cream/Lotion/Oil/Oint (Mineral Oil/Petrolatum,White 106 Gm Tube) 1 appl TOPICAL BID [facility]; Protocol Last Admin: 05/22/24 21:12 Dose: Not Given Olanzapine (Olanzapine 5 Mg Tablet) 5 mg PO TID PRN PRN Reason: agitation Last Admin: 05/19/24 19:43 Dose: 5 mg Omeprazole (Omeprazole 20 Mg Capsule.Dr) 20 mg PO BID [facility] Last Admin: 05/23/24 09:16 Dose: 20 mg Paliperidone (Paliperidone Er 6 Mg Tab.Er.24) 6 mg PO DAILY [facility] Last Admin: 05/23/24 09:17 Dose: 6 mg Paliperidone Palmitate (Paliperidone Palmitate 234 Mg/1.5 Ml Syringe) 234 mg IM Q30D [facility] Trazodone HCl (Trazodone Hcl 50 Mg Tablet) 50 mg PO BEDTIME MRX1 PRN PRN Reason: Insomnia Last Admin: 05/21/24 21:13 Dose: 50 mg Zolpidem Tartrate (Zolpidem Tartrate 5 Mg Tablet) 5 mg PO BEDTIME [facility] Last Admin: 05/22/24 21:09 Dose: 5 mg Allergies Allergies Allergy/AdvReac Type Severity Reaction Status Date / Time bee pollen Allergy Severe Anaphylaxis Verified 04/24/24 15:03 levofloxacin [From Levaquin] Allergy Severe Itching Verified 04/24/24 15:03 enoxaparin [From Lovenox] Allergy Intermediate Rash Verified 04/24/24 15:03 Seasonal Allergies Allergy Mild Runny Nose Verified 04/24/24 15:03 venlafaxine [From Effexor] Allergy Mild Constipatio Verified 04/24/24 15:03 n Penicillins Allergy Unknown Unknown Verified 04/24/24 15:03 Assessment & Plan Assessment & Plan (1) Schizoaffective disorder: Status: Acute Code(s): F25.9 - Schizoaffective disorder, unspecified Plan The patient is an elderly female with a past history of bipolar disorder and alcohol use disorder who was in this facility a few weeks ago the respond very well with ECT but she did not compliant with continuation of care. She relapsed and was readmitted. At this moment she is very depressed with suicidal ideation and severe psychomotor retardation. She agreed to restart ECT. Plan 05/08 continue tx. plan to d/c vraylar and keep latuda. continue ECT 05/09 continue tx 05/10 continue tx. 05/12 pt has become manic, paranoid, telling staff that they are trying to poison her and refusing medication.Paranoid thinking that staff is trying to harm her or someone is trying to kill her dog; Prior to this, patient consented to ECT. Today, however, she refused and tried to elope from PACU. Pt saying she does need or want ECT or medication...she says why are you doing this to me? but won't accept discussion of her depression and now lucrecia. 05/13 pt remains disorganized; trying to elope; says she does not want ect or medication. patient has affirmed HCP, her sister Jennifer, affirmed by probate court. Associate Professor Of Communication contacted HCP with nurse present (Luba Salomon) who consents to ECT even if pt refuses; also consents to antipsychotic at writers disscretion including IM -Received Invega Sustenna 234mg; restarted since she was on this last admission; will dc vraylar and lutuda as neither proved effective (f/u loading dose to follow) 05/14 pt did received ECT today without incident; on unit, pt tried to elope; would not discuss with investigative writer 05/15 pt a little more calm today. Says she is ok to which investigative writer shared that it seems ECT is helping. Pt asked if this was so and investigative writer again affirmed. 05/16 pt says she is feeling normal... and not depressed..in between. investigative writer again affirmed that ECT seems to be helping and she did not disagree....still without much insight. 05/19 continue ECT tx. She had ECT today. 05/20 continue tx. 05/22 continue tx 05/23 continue same treatment Reason for continued inpatient stay Substantial Risk for: inability to function, rapid decompensation and med/psych decompensation Time Spent With Patient Time: Total time managing care of this patient today _20___ minutes.
[2024-05-23] MEDS: Gabapentin 300 MG CAPSULE 600 MG PO (20:50)
[2024-05-23] MEDS: Zolpidem Tartrate 5 MG TABLET PO (20:50)
[2024-05-23] MEDS: Mineral Oil/Petrolatum,White 106 GM Tube 1 APPL TOPICAL (20:51)
[2024-05-24 08:00] VITALS: BP 112/73; PULSE 95; RESP 18; TEMP 36.7; O2SAT 97
[2024-05-24] MEDS: Paliperidone ER 6 MG TAB.ER.24 PO (09:06)
[2024-05-24] MEDS: Omeprazole 20 MG CAPSULE.DR PO ×2 (09:06→20:11)
[2024-05-24] MEDS: Docusate Sodium 100 MG CAPSULE PO ×2 (09:06→20:12)
[2024-05-24] MEDS: Benztropine Mesylate 0.5 MG TABLET 0.25 MG PO ×2 (09:06→20:11)
[2024-05-24] MEDS: Mineral Oil/Petrolatum,White 106 GM Tube 1 APPL TOPICAL (09:09)
--- NOTE | 2024-05-24 14:24 | P.PNPSI_ITS ---
Subjective Subjective Date of Service: 05/24/24 Reason For Visit: SI Subjective Notes: Conditional Voluntary Healthcare Proxy: No Guardianship: No Medical Problems Affecting Mental Status: No Interim History: 68 yo reports she is doing ok - started invega and done with ECt, nursing reports continues flat- but patient said not feeling depressed and looking toward dc- unsure when that will be- Denies si/or side effects of medications- though I agree with nursing patient appears flat affect- and ? forgetful while I was interviewing her roommate she came in looking for cards which were right at bedside- however.. she left without them - though may have been thrown off by interview going on in her room Medication Compliance: Yes Side effects from medications: No (?flat, some ? sweating ) Attending Groups: Intermittent Review of Systems Acute medical concerns: No Medical Review of Systems: unchanged Mental Status Exam Mental Status Exam Narrative: dresesd in [place]? maybe washing clothes Patient Appearance: Perspiring and Appropriate Patient Orientation: Person Level of Consciousness: Awake Patient Behavior: Appropriate Mood Description: Apathetic Affect Description: Blunted and Flat Patient Cognition Impaired: No Ability to Follow Directions: Fair Speech Pattern: Clear Thought Process: Goal Oriented Thought Content: positive for [place] Abnormal Motor Activity Signs and Symptoms: Muscle Rigidity Judgement: Fair Diagnostics Vital Signs (24Hr): Vital Signs - 24 hr 05/23/24 20:00 05/24/24 08:00 Temperature 97.9 F 98.1 F Pulse Rate 84 95 Respiratory Rate 16 18 Blood Pressure 113/73 112/73 Pulse Oximetry 95 97 Oxygen Delivery Method Room Air Room Air BMI result Body Mass Index 23.3 Labs 04/24/24 16:11 04/26/24 07:26 Medications Medications Current Medications Acetaminophen (Acetaminophen 325 Mg Tablet) 650 mg PO Q6H PRN PRN Reason: Headache/Pain Mild Scale (1-3) Last Admin: 05/17/24 10:17 Dose: 650 mg Al Hydroxide/Mg Hydroxide (Magnesium Hydrox/Alum Hydrox 30 Ml Oral.Susp) 30 ml PO Q6H PRN PRN Reason: Heartburn/Nausea Benztropine Mesylate (Benztropine Mesylate 0.5 Mg Tablet) 0.25 mg PO BID [facility] Last Admin: 05/24/24 09:06 Dose: 0.25 mg Docusate Sodium (Docusate Sodium 100 Mg Capsule) 100 mg PO BID [facility] Last Admin: 05/24/24 09:06 Dose: 100 mg Gabapentin (Gabapentin 300 Mg Capsule) 600 mg PO BEDTIME [facility] Last Admin: 05/23/24 20:50 Dose: 600 mg Hydroxyzine HCl (Hydroxyzine Hcl 25 Mg Tablet) 25 mg PO Q6H PRN PRN Reason: Anxiety Last Admin: 05/21/24 21:13 Dose: 25 mg Magnesium Hydroxide (Milk Of Magnesia 30 Ml Oral.Susp) 30 ml PO DAILY PRN PRN Reason: Constipation Multi-Ingred Cream/Lotion/Oil/Oint (Mineral Oil/Petrolatum,White 106 Gm Tube) 1 appl TOPICAL BID [facility]; Protocol Last Admin: 05/24/24 09:09 Dose: 1 appl Olanzapine (Olanzapine 5 Mg Tablet) 5 mg PO TID PRN PRN Reason: agitation Last Admin: 05/19/24 19:43 Dose: 5 mg Omeprazole (Omeprazole 20 Mg Capsule.Dr) 20 mg PO BID [facility] Last Admin: 05/24/24 09:06 Dose: 20 mg Paliperidone (Paliperidone Er 6 Mg Tab.Er.24) 6 mg PO DAILY [facility] Last Admin: 05/24/24 09:06 Dose: 6 mg Paliperidone Palmitate (Paliperidone Palmitate 234 Mg/1.5 Ml Syringe) 234 mg IM Q30D [facility] Trazodone HCl (Trazodone Hcl 50 Mg Tablet) 50 mg PO BEDTIME MRX1 PRN PRN Reason: Insomnia Last Admin: 05/21/24 21:13 Dose: 50 mg Zolpidem Tartrate (Zolpidem Tartrate 5 Mg Tablet) 5 mg PO BEDTIME [facility] Last Admin: 05/23/24 20:50 Dose: 5 mg Allergies Allergies Allergy/AdvReac Type Severity Reaction Status Date / Time bee pollen Allergy Severe Anaphylaxis Verified 04/24/24 15:03 levofloxacin [From Levaquin] Allergy Severe Itching Verified 04/24/24 15:03 enoxaparin [From Lovenox] Allergy Intermediate Rash Verified 04/24/24 15:03 Seasonal Allergies Allergy Mild Runny Nose Verified 04/24/24 15:03 venlafaxine [From Effexor] Allergy Mild Constipatio Verified 04/24/24 15:03 n Penicillins Allergy Unknown Unknown Verified 04/24/24 15:03 Assessment & Plan Assessment & Plan (1) Schizoaffective disorder: Status: Acute Code(s): F25.9 - Schizoaffective disorder, unspecified Plan The patient is an elderly female with a past history of bipolar disorder and alcohol use disorder who was in this facility a few weeks ago the respond very well with ECT but she did not compliant with continuation of care. She relapsed and was readmitted. At this moment she is very depressed with suicidal ideation and severe psychomotor retardation. She agreed to restart ECT. Plan 05/08 continue tx. plan to d/c vraylar and keep latuda. continue ECT 05/09 continue tx 05/10 continue tx. 05/12 pt has become manic, paranoid, telling staff that they are trying to poison her and refusing medication.Paranoid thinking that staff is trying to harm her or someone is trying to kill her dog; Prior to this, patient consented to ECT. Today, however, she refused and tried to elope from PACU. Pt saying she does need or want ECT or medication...she says why are you doing this to me? but won't accept discussion of her depression and now lucrecia. 05/13 pt remains disorganized; trying to elope; says she does not want ect or medication. patient has affirmed HCP, her sister Jennifer, affirmed by probate court. Medical Operations Supervisor contacted HCP with nurse present (Luba Salomon) who consents to ECT even if pt refuses; also consents to antipsychotic at writers disscretion including IM -Received Invega Sustenna 234mg; restarted since she was on this last admission; will dc vraylar and lutuda as neither proved effective (f/u loading dose to follow) 05/14 pt did received ECT today without incident; on unit, pt tried to elope; would not discuss with senior mortgage underwriter 05/15 pt a little more calm today. Says she is ok to which senior mortgage underwriter shared that it seems ECT is helping. Pt asked if this was so and senior mortgage underwriter again affirmed. 05/16 pt says she is feeling normal... and not depressed..in between. senior mortgage underwriter again affirmed that ECT seems to be helping and she did not disagree....still without much insight. 05/19 continue ECT tx. She had ECT today. 05/20 continue tx. 05/22 continue tx 05/23 continue same treatment 05/24/24- s/p ECT now getting initial trial of invega (new med) and will be working on discharge plan to prevent rapid decompensation on discharge- Patient educated on: medication risk/benefits and other Informed Consent: understands Reason for continued inpatient stay Substantial Risk for: rapid decompensation Time Spent With Patient Time: Total time managing care of this patient today ____ minutes.
[2024-05-24 20:00] VITALS: BP 109/74; PULSE 90; RESP 16; TEMP 36.1; O2SAT 96
[2024-05-24] MEDS: Zolpidem Tartrate 5 MG TABLET PO (20:12)
[2024-05-24] MEDS: Gabapentin 300 MG CAPSULE 600 MG PO (20:12)
[2024-05-25 07:53] VITALS: BP 142/62; PULSE 86; RESP 18; TEMP 36.3; O2SAT 95
[2024-05-25] MEDS: Omeprazole 20 MG CAPSULE.DR PO ×2 (08:03→20:10)
[2024-05-25] MEDS: Benztropine Mesylate 0.5 MG TABLET 0.25 MG PO ×2 (08:03→20:11)
[2024-05-25] MEDS: Paliperidone ER 6 MG TAB.ER.24 PO (08:03)
[2024-05-25] MEDS: Docusate Sodium 100 MG CAPSULE PO ×2 (08:03→20:12)
--- NOTE | 2024-05-25 15:32 | P.PNPSI_ITS ---
Subjective Subjective Date of Service: 05/25/24 Reason For Visit: SI Subjective Notes: Conditional Voluntary Healthcare Proxy: No Guardianship: No Medical Problems Affecting Mental Status: No Interim History: 68yo with no complaints, however nursing noticed same thing I did yesterday - some confusion- disoriented at time - not herself nursing reports pt talking about about a bag- but not clear what bag- looking for cards which nursing thought was food cards for diet...that I had thought was playing cards - today nursing reports clearer though she did say something odd about what pill another patient got - while nursing giving out pills. Pt herself is anxious about dc saing she has alot of books and papers but unclear if it is about gathering things to go home or going home to alot of things to do- Denies si/hi or side effects of meds ?If ECT residual confusion or other organic or side effect- or mci Medication Compliance: Yes Side effects from medications: No Attending Groups: Intermittent Review of Systems Acute medical concerns: Yes some mild confusion or cognitive dysfx Medical Review of Systems: unchanged Mental Status Exam Mental Status Exam Patient Appearance: Perspiring and Appropriate Patient Orientation: Person, Place and Situation Level of Consciousness: Awake Patient Behavior: Cooperative Mood Description: Flat Affect Description: Blunted Ability to Follow Directions: Fair Speech Pattern: Clear Hallucinations: None Delusions: Not Present Thought Process: Distracted Thought Content: positive for [place] Depressive Symptoms: Difficulty Concentrating Judgement: Fair Diagnostics Vital Signs (24Hr): Vital Signs - 24 hr 05/24/24 20:00 05/25/24 07:53 Temperature 97 F 97.3 F Pulse Rate 90 86 Respiratory Rate 16 18 Blood Pressure 109/74 142/62 H Pulse Oximetry 96 95 Oxygen Delivery Method Room Air Room Air BMI result Body Mass Index 23.3 Labs 04/24/24 16:11 04/26/24 07:26 Medications Medications Current Medications Acetaminophen (Acetaminophen 325 Mg Tablet) 650 mg PO Q6H PRN PRN Reason: Headache/Pain Mild Scale (1-3) Last Admin: 05/17/24 10:17 Dose: 650 mg Al Hydroxide/Mg Hydroxide (Magnesium Hydrox/Alum Hydrox 30 Ml Oral.Susp) 30 ml PO Q6H PRN PRN Reason: Heartburn/Nausea Benztropine Mesylate (Benztropine Mesylate 0.5 Mg Tablet) 0.25 mg PO BID [facility] Last Admin: 05/25/24 08:03 Dose: 0.25 mg Docusate Sodium (Docusate Sodium 100 Mg Capsule) 100 mg PO BID [facility] Last Admin: 05/25/24 08:03 Dose: 100 mg Gabapentin (Gabapentin 300 Mg Capsule) 600 mg PO BEDTIME [facility] Last Admin: 05/24/24 20:12 Dose: 600 mg Hydroxyzine HCl (Hydroxyzine Hcl 25 Mg Tablet) 25 mg PO Q6H PRN PRN Reason: Anxiety Last Admin: 05/21/24 21:13 Dose: 25 mg Magnesium Hydroxide (Milk Of Magnesia 30 Ml Oral.Susp) 30 ml PO DAILY PRN PRN Reason: Constipation Multi-Ingred Cream/Lotion/Oil/Oint (Mineral Oil/Petrolatum,White 106 Gm Tube) 1 appl TOPICAL BID [facility]; Protocol Last Admin: 05/25/24 08:04 Dose: Not Given Olanzapine (Olanzapine 5 Mg Tablet) 5 mg PO TID PRN PRN Reason: agitation Last Admin: 05/19/24 19:43 Dose: 5 mg Omeprazole (Omeprazole 20 Mg Capsule.Dr) 20 mg PO BID [facility] Last Admin: 05/25/24 08:03 Dose: 20 mg Paliperidone (Paliperidone Er 6 Mg Tab.Er.24) 6 mg PO DAILY [facility] Last Admin: 05/25/24 08:03 Dose: 6 mg Paliperidone Palmitate (Paliperidone Palmitate 234 Mg/1.5 Ml Syringe) 234 mg IM Q30D [facility] Trazodone HCl (Trazodone Hcl 50 Mg Tablet) 50 mg PO BEDTIME MRX1 PRN PRN Reason: Insomnia Last Admin: 05/21/24 21:13 Dose: 50 mg Zolpidem Tartrate (Zolpidem Tartrate 5 Mg Tablet) 5 mg PO BEDTIME [facility] Last Admin: 05/24/24 20:12 Dose: 5 mg Allergies Allergies Allergy/AdvReac Type Severity Reaction Status Date / Time bee pollen Allergy Severe Anaphylaxis Verified 04/24/24 15:03 levofloxacin [From Levaquin] Allergy Severe Itching Verified 04/24/24 15:03 enoxaparin [From Lovenox] Allergy Intermediate Rash Verified 04/24/24 15:03 Seasonal Allergies Allergy Mild Runny Nose Verified 04/24/24 15:03 venlafaxine [From Effexor] Allergy Mild Constipatio Verified 04/24/24 15:03 n Penicillins Allergy Unknown Unknown Verified 04/24/24 15:03 Assessment & Plan Assessment & Plan (1) Schizoaffective disorder: Status: Acute Code(s): F25.9 - Schizoaffective disorder, unspecified Plan The patient is an elderly female with a past history of bipolar disorder and alcohol use disorder who was in this facility a few weeks ago the respond very well with ECT but she did not compliant with continuation of care. She relapsed and was readmitted. At this moment she is very depressed with suicidal ideation and severe psychomotor retardation. She agreed to restart ECT. Plan 05/08 continue tx. plan to d/c vraylar and keep latuda. continue ECT 05/09 continue tx 05/10 continue tx. 05/12 pt has become manic, paranoid, telling staff that they are trying to poison her and refusing medication.Paranoid thinking that staff is trying to harm her or someone is trying to kill her dog; Prior to this, patient consented to ECT. Today, however, she refused and tried to elope from PACU. Pt saying she does need or want ECT or medication...she says why are you doing this to me? but won't accept discussion of her depression and now lucrecia. 05/13 pt remains disorganized; trying to elope; says she does not want ect or medication. patient has affirmed HCP, her sister Jennifer, affirmed by probate court. Cereal Miller contacted HCP with nurse present (Luba Salomon) who consents to ECT even if pt refuses; also consents to antipsychotic at writers disscretion including IM -Received Invega Sustenna 234mg; restarted since she was on this last admission; will dc vraylar and lutuda as neither proved effective (f/u loading dose to follow) 05/14 pt did received ECT today without incident; on unit, pt tried to elope; would not discuss with screenplay writer 05/15 pt a little more calm today. Says she is ok to which screenplay writer shared that it seems ECT is helping. Pt asked if this was so and screenplay writer again affirmed. 05/16 pt says she is feeling normal... and not depressed..in between. screenplay writer again affirmed that ECT seems to be helping and she did not disagree....still without much insight. 05/19 continue ECT tx. She had ECT today. 05/20 continue tx. 05/22 continue tx 05/23 continue same treatment 05/24/24- s/p ECT now getting initial trial of invega (new med) and will be working on discharge plan to prevent rapid decompensation on discharge- 05/25/24 continues discharge planning, suggest check cognition with OT before dc- Patient educated on: medication risk/benefits and medical condition Informed Consent: understands and further education needed Reason for continued inpatient stay Substantial Risk for: rapid decompensation Time Spent With Patient Time: Total time managing care of this patient today ____ minutes.
[2024-05-25 20:00] VITALS: BP 148/77; PULSE 80; RESP 16; TEMP 36.3; O2SAT 97
[2024-05-25] MEDS: Zolpidem Tartrate 5 MG TABLET PO (20:10)
[2024-05-25] MEDS: Gabapentin 300 MG CAPSULE 600 MG PO (20:11)
[2024-05-26] VITALS (12 sets, daily range): BP systolic 127–156; BP diastolic 63–79; PULSE 74–96; RESP 11–16; TEMP 36–36.8; O2SAT 95–99
--- NOTE | 2024-05-26 06:54 | P.CONAN_ITS ---
[facility] Active Problems Active Problems: All Active Problems Schizoaffective disorder (Acute) Pre-op evaluation (Acute) Depression (Acute) Arthritis of right knee (Acute) Bipolar 1 disorder, depressed, severe (Acute) Elevated troponin (Acute) Chest discomfort (Acute) S/P cardiac catheterization (Acute) Bipolar 1 disorder (Acute) Varus deformity of knee (Acute) Osteoarthritis of left knee (Acute) Anxiety (Acute) GERD (gastroesophageal reflux disease) (Acute) Insomnia (Acute) Osteopenia (Acute) Murmur, cardiac (Acute) Status post total knee replacement, left (Acute) Acute deep vein thrombosis (DVT) of left tibial vein (Chronic) Past Medical History Medical History History of skin cancer Hx of bladder problems VITO (generalized anxiety disorder) Murmur, cardiac Hx of thyroid nodule Osteopenia Hx of skin cancer, basal cell Seasonal allergies Insomnia Constipation GERD (gastroesophageal reflux disease) Anxiety History of electroconvulsive therapy Bipolar 1 disorder Functional capacity: independent ambulation Family History Family History Mother Basal cell carcinoma (BCC) in situ of skin Osteoporosis Hyperlipidemia Father CAD (coronary artery disease) Alcoholism Sister Osteoporosis Depression Brother Cancer of tongue Cancer of skin Family history of problems with anesthesia: No Surgical History Surgical History Hx of colonoscopy H/O elbow surgery History of back surgery History of Problems with Anesthesia: No Social History Social History Household Members: Other Household Members Other:: Dog. Housing: Apartment Are you a primary infant childcare provider to a significant other at home: No Do you presently have visiting nurse or other home services: Yes Unable to assess alcohol history related to: Unable to respond Patient Tobacco Use Status: Never used Tobacco Tobacco use type: Cigarette Years Smoked: 30+, now vapes Smoked in Last 30 Days: Yes e-Cigarette/Vaping Use: Currently Using Frequency of e-Cigarette/Vaping Use: Not a lot. Patient Interested in Nicotine Replacement: No Patient Given Instructions on How to Stop Smoking: No Second Hand Smoke Exposure: No Use of substances other than those prescribed or required for medical reasons: No Substance Use Type: Crack/Cocaine Currently Displaying Signs/Symptoms of Drug Intoxication Withdrawal: No Any prior treatment program specific to substance use: No Have you been hit, kicked, punched, or otherwise hurt by someone within the past year? If so, by whom?: No Do you feel safe in your current relationship?: No Current Relationship Is there a partner from a previous relationship who is making you feel unsafe now?: No Are you made to feel afraid or neglected: No Advance Directives: No Advance Directives Information Provided: No Do you have thoughts of harming others: None Do you have a plan to hurt others: No Plan Recently lost weight without trying: Yes How much weight loss: 2-13 pounds Eating poorly because of decreased appetite: Yes Nutrition screen score: 4 Nutrition Risks: No Nutritional Risk Patient : No : No Poor oral hygiene: No service: No Current occupational status: unemployed and retired 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 Sexual orientation: Straight/Heterosexual Meds Allergies Allergy/AdvReac Type Severity Reaction Status Date / Time bee pollen Allergy Severe Anaphylaxis Verified 04/24/24 15:03 levofloxacin [From Levaquin] Allergy Severe Itching Verified 04/24/24 15:03 enoxaparin [From Lovenox] Allergy Intermediate Rash Verified 04/24/24 15:03 Seasonal Allergies Allergy Mild Runny Nose Verified 04/24/24 15:03 venlafaxine [From Effexor] Allergy Mild Constipatio Verified 04/24/24 15:03 n Penicillins Allergy Unknown Unknown Verified 04/24/24 15:03 Active Medications: Current Medications Acetaminophen (Acetaminophen 325 Mg Tablet) 650 mg PO Q6H PRN PRN Reason: Headache/Pain Mild Scale (1-3) Last Admin: 05/17/24 10:17 Dose: 650 mg Al Hydroxide/Mg Hydroxide (Magnesium Hydrox/Alum Hydrox 30 Ml Oral.Susp) 30 ml PO Q6H PRN PRN Reason: Heartburn/Nausea Benztropine Mesylate (Benztropine Mesylate 0.5 Mg Tablet) 0.25 mg PO BID [facility] Last Admin: 05/25/24 20:11 Dose: 0.25 mg Docusate Sodium (Docusate Sodium 100 Mg Capsule) 100 mg PO BID [facility] Last Admin: 05/25/24 20:12 Dose: 100 mg Gabapentin (Gabapentin 300 Mg Capsule) 600 mg PO BEDTIME [facility] Last Admin: 05/25/24 20:11 Dose: 600 mg Hydroxyzine HCl (Hydroxyzine Hcl 25 Mg Tablet) 25 mg PO Q6H PRN PRN Reason: Anxiety Last Admin: 05/21/24 21:13 Dose: 25 mg Lactated Ringer's (Lr) 1,000 mls @ 50 mls/hr IVCONT .Q20H [facility] Magnesium Hydroxide (Milk Of Magnesia 30 Ml Oral.Susp) 30 ml PO DAILY PRN PRN Reason: Constipation Multi-Ingred Cream/Lotion/Oil/Oint (Mineral Oil/Petrolatum,White 106 Gm Tube) 1 appl TOPICAL BID [facility]; Protocol Last Admin: 05/25/24 20:13 Dose: Not Given Naloxone HCl (Naloxone Hcl 0.4 Mg/Ml Vial) 0.04 mg IVPUSH Q5M PRN PRN Reason: Excessive sedation or RR < 8 Olanzapine (Olanzapine 5 Mg Tablet) 5 mg PO TID PRN PRN Reason: agitation Last Admin: 05/19/24 19:43 Dose: 5 mg Omeprazole (Omeprazole 20 Mg Capsule.Dr) 20 mg PO BID [facility] Last Admin: 05/25/24 20:10 Dose: 20 mg Paliperidone (Paliperidone Er 6 Mg Tab.Er.24) 6 mg PO DAILY [facility] Last Admin: 05/25/24 08:03 Dose: 6 mg Paliperidone Palmitate (Paliperidone Palmitate 234 Mg/1.5 Ml Syringe) 234 mg IM Q30D [facility] Trazodone HCl (Trazodone Hcl 50 Mg Tablet) 50 mg PO BEDTIME MRX1 PRN PRN Reason: Insomnia Last Admin: 05/21/24 21:13 Dose: 50 mg Zolpidem Tartrate (Zolpidem Tartrate 5 Mg Tablet) 5 mg PO BEDTIME [facility] Last Admin: 05/25/24 20:10 Dose: 5 mg Home Medications ?Medication ?Instructions ?Recorded ?Confirmed ?Last Taken ?Type mirtazapine 30 mg tablet 30 mg PO BEDTIME 04/24/24 04/24/24 04/23/24 History omeprazole 20 mg capsule,delayed 20 mg PO DAILY@0630 04/25/24 04/25/24 Unknown History release thiamine HCl (vitamin B1) 100 mg 100 mg PO BID 04/25/24 04/25/24 Unknown History tablet (Vitamin B-1) Exam Height,Weight and Vital Signs: Height 5 ft 7 in Weight 67.404 kg Last Vital Signs Temp 96.8 F 05/26/24 06:47 Pulse 89 05/26/24 06:47 Resp 14 05/26/24 06:47 BP 136/78 05/26/24 06:47 Pulse Ox 97 05/26/24 06:47 O2 Del Method Room Air 05/26/24 06:47 O2 Flow Rate 2 05/23/24 08:15 Pertinent Lab Results Pertinent Lab Results: Laboratory Tests 04/24/24 04/24/24 04/26/24 16:11 19:56 07:26 WBC 5.8 RBC 4.34 Hgb 13.2 Hct 37.6 MCV 86.6 MCH 30.4 MCHC 35.1 H RDW 13.1 Plt Count 210 MPV 8.3 L Immature Gran % (Auto) 0.3 Neut % (Auto) 57.0 Lymph % (Auto) 32.2 Isabella % (Auto) 9.0 Eos % (Auto) 1.0 Baso % (Auto) 0.5 Lymph # (Auto) 1.9 Isabella # (Auto) 0.5 Eos # (Auto) 0.1 Baso # (Auto) 0.0 Abs Immat Gran (auto) 0.02 Absolute Neuts (auto) 3.3 Absolute Nucleated RBC 0.000 Nucleated RBC % (auto) 0.0 Sodium 139 139 Potassium 4.0 4.2 Chloride 106 107 Carbon Dioxide 26 25 Anion Gap 11 L 11 L BUN 15 21 H Creatinine 0.81 0.79 Estim Creat Clear Calc 66.4 68.1 Estimated GFR > 60 > 60 Random Glucose 101 Fasting Glucose 102 H Estimat Average Glucose 117 Hemoglobin A1c % 5.7 Calcium 9.6 9.7 Total Bilirubin 0.2 0.3 AST 21 18 ALT 11 12 Alkaline Phosphatase 91 90 Total Protein 6.8 6.7 Albumin 4.1 4.0 Triglycerides 83 Cholesterol 232 H LDL Cholesterol, Calc 157 H HDL Cholesterol 59 Vitamin B12 383 TSH 0.43 Urine Color Yellow Urine Appearance Clear Urine pH 6.5 Ur Specific [place] 1.020 Urine Protein Negative Urine Glucose (UA) Negative Urine Ketones Negative Urine Blood Negative Urine Nitrite Negative Ur Leukocyte Esterase Small (1+) H Urine RBC 0-2 Urine WBC 6-10 H Ur Squamous Epith Cells 0-2 Urine Bacteria None Seen Hyaline Casts 0-2 Salicylates < 5.0 L Urine Opiates Screen Not Detected Ur Buprenorphine Scrn Not Detected Ur Oxycodone Screen Not Detected Urine Methadone Screen Not Detected Urine Fentanyl Screen Not Detected Acetaminophen < 3 Ur Barbiturates Screen Not Detected Ur Phencyclidine Scrn Not Detected Ur Amphetamines Screen Not Detected U Benzodiazepines Scrn Not Detected Urine Cocaine Screen Not Detected U Marijuana (THC) Screen Not Detected Ethyl Alcohol < 10 Airway Mallampati Class: II (edentuloys on top) TM Dist: >3cm Neck ROM: Full Heart: rrr Lungs: cta Assessment and Plan Assessment Anesthesia Assessment: Anesthesia Plan Discussed and Chart Reviewed Final Anesthetic Review Family History of Problems with Anesthesia: No History of Problems with Anesthesia: No NPO: Yes ASA Class: III Final Preanesthetic Review: No Changes in Pt Med Stat, Meds/Allgs Chart Reviewed and Consent Obtained/Reviewed Patient Risk: Intermediate Procedure Risk: Intermediate Anesthetic Plan Anesthetic Plan: GA Disposition: Standard PACU
[2024-05-26] MEDS: Lactated Ringers 1,000 ML 50 ML IVCONT (07:05)
--- NOTE | 2024-05-26 07:05 | MHC.SHP ---
Pre-Procedural Eval Section A - 24 Hr Update-Section A only Date of Service: 05/26/24 The patient is an INPATIENT: Yes Changes since office visit: No Cold of Flu in the past 2 weeks, No New Medical Problems, No Changes in Medication and No Patient answered all questions The patient has been examined within 24 hours of the surgical procedure. The History & Physical has been completed within 30 days and I have reviewed it.: Yes Section B - Complete if H&P > 30 days Chief Complaint: SI Allergies: Allergies Allergy/AdvReac Type Severity Reaction Status Date / Time bee pollen Allergy Severe Anaphylaxis Verified 04/24/24 15:03 levofloxacin [From Levaquin] Allergy Severe Itching Verified 04/24/24 15:03 enoxaparin [From Lovenox] Allergy Intermediate Rash Verified 04/24/24 15:03 Seasonal Allergies Allergy Mild Runny Nose Verified 04/24/24 15:03 venlafaxine [From Effexor] Allergy Mild Constipatio Verified 04/24/24 15:03 n Penicillins Allergy Unknown Unknown Verified 04/24/24 15:03 Plan I have reviewed the history and physical and performed a pertinent physical examination on my patient. No changes have occurred unless specified. Time Spent With Patient Time: Total time managing care of this patient today ____ minutes.
--- NOTE | 2024-05-26 07:46 | HO.ECTPROC ---
ECT Procedure Note Diagnosis/Treatment Date of Service: 05/26/24 Diagnosis: Bipolar disorder Previous ECT Date: 05/23/24 Current Treatment Number: 4 Treatment: Series Interval Clinical Notes: The patient's mood looks more stable, less dysphoric but still with some blunted affect. No side effects with the previous ECT. ECT done as usual, no complications, the computer didn't registered seizure activity but she had an evident motor seizure for 17s. Woke up without any problems. Time: Total time managing care of this patient today _30___ minutes. ECT Settings Device: THYMATRON DGx Electrode Placement: Bifrontal Program/Pulse Width: 0.50 Energy Percent: 100 Seizure Duration By EEG (in seconds): 0 (computer didn't registered seizure but there was seizure activity for 35s) By Motor Observation (in seconds): 17 Medications Administration General Anesthetic: Etomidate (12) Muscle Relaxant: Succinylcholine (100) Ancillary Medications Miscillaneous Medications: Midazolam (2 mg) Airway Management Airway Management: Bag Mask Ventilation Treatment Recommendations No Changes Recommended: No change Pt Tolerated Procedure w/o Issue: Yes
[2024-05-26] MEDS: Omeprazole 20 MG CAPSULE.DR PO ×2 (09:08→19:58)
[2024-05-26] MEDS: Docusate Sodium 100 MG CAPSULE PO ×2 (09:09→19:58)
[2024-05-26] MEDS: Benztropine Mesylate 0.5 MG TABLET 0.25 MG PO ×2 (09:09→19:58)
[2024-05-26] MEDS: Paliperidone ER 6 MG TAB.ER.24 PO (09:10)
--- NOTE | 2024-05-26 13:47 | P.PNPSI_ITS ---
Subjective Subjective Date of Service: 05/26/24 Reason For Visit: SI Subjective Notes: Conditional Voluntary Healthcare Proxy: Yes Interim History: The nursing staff reported the patient slept 6 or 7 hours she had ECT. On interview the patient denies new symptoms she reports that she is less depressed. No side effects with ECT. Doing fairly well Mental Status Exam Mental Status Exam Patient Appearance: Appropriate Patient Orientation: Person and Situation Level of Consciousness: Awake and Appropriate Patient Behavior: Guarded and Passive Mood Description: Withdrawn Affect Description: Constricted Patient Cognition Impaired: Yes Ability to Follow Directions: Good Speech Pattern: Clear Hallucinations: None Delusions: Not Present Thought Process: Distracted and Slowed Thinking Thought Content: positive for [place] and positive for Poverty of Content Judgement: Fair Diagnostics Vital Signs (24Hr): Vital Signs - 24 hr 05/25/24 20:00 05/26/24 06:22 05/26/24 06:27 Temperature 97.4 F 97.3 F 97.3 F Pulse Rate 80 74 74 Respiratory Rate 16 16 16 Blood Pressure 148/77 H 127/63 127/63 Pulse Oximetry 97 98 98 Oxygen Delivery Method Room Air Room Air Oxygen Flow Rate 05/26/24 06:29 05/26/24 06:47 05/26/24 07:50 Temperature 97.3 F 96.8 F 98.3 F Pulse Rate 74 89 77 Respiratory Rate 16 14 11 L Blood Pressure 127/63 136/78 130/64 Pulse Oximetry 98 97 96 Oxygen Delivery Method Room Air Room Air Nasal Cannula Oxygen Flow Rate 2 05/26/24 07:55 05/26/24 08:00 05/26/24 08:05 Temperature 98.3 F 98.3 F 98.3 F Pulse Rate 89 96 90 Respiratory Rate 12 12 12 Blood Pressure 135/79 141/66 H 132/71 Pulse Oximetry 95 99 98 Oxygen Delivery Method Nasal Cannula Nasal Cannula Nasal Cannula Oxygen Flow Rate 2 2 2 05/26/24 08:20 05/26/24 09:00 05/26/24 09:01 Temperature 98.3 F 97.3 F 97.3 F Pulse Rate 80 74 74 Respiratory Rate 12 16 16 Blood Pressure 132/66 156/74 H 156/74 H Pulse Oximetry 95 98 98 Oxygen Delivery Method Room Air Room Air Oxygen Flow Rate BMI result Body Mass Index 23.3 Labs 04/24/24 16:11 04/26/24 07:26 Medications Medications Current Medications Acetaminophen (Acetaminophen 325 Mg Tablet) 650 mg PO Q6H PRN PRN Reason: Headache/Pain Mild Scale (1-3) Last Admin: 05/17/24 10:17 Dose: 650 mg Al Hydroxide/Mg Hydroxide (Magnesium Hydrox/Alum Hydrox 30 Ml Oral.Susp) 30 ml PO Q6H PRN PRN Reason: Heartburn/Nausea Benztropine Mesylate (Benztropine Mesylate 0.5 Mg Tablet) 0.25 mg PO BID [facility] Last Admin: 05/26/24 09:09 Dose: 0.25 mg Docusate Sodium (Docusate Sodium 100 Mg Capsule) 100 mg PO BID [facility] Last Admin: 05/26/24 09:09 Dose: 100 mg Gabapentin (Gabapentin 300 Mg Capsule) 600 mg PO BEDTIME [facility] Last Admin: 05/25/24 20:11 Dose: 600 mg Hydroxyzine HCl (Hydroxyzine Hcl 25 Mg Tablet) 25 mg PO Q6H PRN PRN Reason: Anxiety Last Admin: 05/21/24 21:13 Dose: 25 mg Magnesium Hydroxide (Milk Of Magnesia 30 Ml Oral.Susp) 30 ml PO DAILY PRN PRN Reason: Constipation Multi-Ingred Cream/Lotion/Oil/Oint (Mineral Oil/Petrolatum,White 106 Gm Tube) 1 appl TOPICAL BID [facility]; Protocol Last Admin: 05/25/24 20:13 Dose: Not Given Olanzapine (Olanzapine 5 Mg Tablet) 5 mg PO TID PRN PRN Reason: agitation Last Admin: 05/19/24 19:43 Dose: 5 mg Omeprazole (Omeprazole 20 Mg Capsule.Dr) 20 mg PO BID [facility] Last Admin: 05/26/24 09:08 Dose: 20 mg Paliperidone (Paliperidone Er 6 Mg Tab.Er.24) 6 mg PO DAILY [facility] Last Admin: 05/26/24 09:10 Dose: 6 mg Paliperidone Palmitate (Paliperidone Palmitate 234 Mg/1.5 Ml Syringe) 234 mg IM Q30D [facility] Trazodone HCl (Trazodone Hcl 50 Mg Tablet) 50 mg PO BEDTIME MRX1 PRN PRN Reason: Insomnia Last Admin: 05/21/24 21:13 Dose: 50 mg Zolpidem Tartrate (Zolpidem Tartrate 5 Mg Tablet) 5 mg PO BEDTIME [facility] Last Admin: 05/25/24 20:10 Dose: 5 mg Allergies Allergies Allergy/AdvReac Type Severity Reaction Status Date / Time bee pollen Allergy Severe Anaphylaxis Verified 04/24/24 15:03 levofloxacin [From Levaquin] Allergy Severe Itching Verified 04/24/24 15:03 enoxaparin [From Lovenox] Allergy Intermediate Rash Verified 04/24/24 15:03 Seasonal Allergies Allergy Mild Runny Nose Verified 04/24/24 15:03 venlafaxine [From Effexor] Allergy Mild Constipatio Verified 04/24/24 15:03 n Penicillins Allergy Unknown Unknown Verified 04/24/24 15:03 Assessment & Plan Assessment & Plan (1) Schizoaffective disorder: Status: Acute Code(s): F25.9 - Schizoaffective disorder, unspecified Plan The patient is an elderly female with a past history of bipolar disorder and alcohol use disorder who was in this facility a few weeks ago the respond very well with ECT but she did not compliant with continuation of care. She relapsed and was readmitted. At this moment she is very depressed with suicidal ideation and severe psychomotor retardation. She agreed to restart ECT. Plan 05/08 continue tx. plan to d/c vraylar and keep latuda. continue ECT 05/09 continue tx 05/10 continue tx. 05/12 pt has become manic, paranoid, telling staff that they are trying to poison her and refusing medication.Paranoid thinking that staff is trying to harm her or someone is trying to kill her dog; Prior to this, patient consented to ECT. Today, however, she refused and tried to elope from PACU. Pt saying she does need or want ECT or medication...she says why are you doing this to me? but won't accept discussion of her depression and now lucrecia. 05/13 pt remains disorganized; trying to elope; says she does not want ect or medication. patient has affirmed HCP, her sister Jennifer, affirmed by probate court. [employer] contacted HCP with nurse present (Luba Salomon) who consents to ECT even if pt refuses; also consents to antipsychotic at writers disscretion including IM -Received Invega Sustenna 234mg; restarted since she was on this last admission; will dc vraylar and lutuda as neither proved effective (f/u loading dose to follow) 05/14 pt did received ECT today without incident; on unit, pt tried to elope; would not discuss with production underwriter 05/15 pt a little more calm today. Says she is ok to which production underwriter shared that it seems ECT is helping. Pt asked if this was so and production underwriter again affirmed. 05/16 pt says she is feeling normal... and not depressed..in between. production underwriter again affirmed that ECT seems to be helping and she did not disagree....still without much insight. 05/19 continue ECT tx. She had ECT today. 05/20 continue tx. 05/22 continue tx 05/23 continue same treatment 05/24/24- s/p ECT now getting initial trial of invega (new med) and will be working on discharge plan to prevent rapid decompensation on discharge- 05/25/24 continues discharge planning, suggest check cognition with OT before dc- 05/26 continue same treatment Reason for continued inpatient stay Substantial Risk for: inability to function, rapid decompensation and med/psych decompensation Time Spent With Patient Time: Total time managing care of this patient today __20__ minutes.
[2024-05-26] MEDS: Mineral Oil/Petrolatum,White 106 GM Tube 1 APPL TOPICAL (19:58)
[2024-05-26] MEDS: Zolpidem Tartrate 5 MG TABLET PO (19:58)
[2024-05-26] MEDS: Gabapentin 300 MG CAPSULE 600 MG PO (19:58)
[2024-05-27 08:00] VITALS: BP 124/73; PULSE 79; RESP 16; TEMP 36.2; O2SAT 95
--- NOTE | 2024-05-27 08:32 | HO.PSYCHPN ---
Subjective Subjective Date of Service: 05/27/24 Reason For Visit: SI Subjective Notes: Conditional Voluntary Interim History: The nursing staff reported the patient was slightly confused post ECT, she had a good evening slept 7 hours. No behavioral issues as per nursing staff. On interview the patient denies new symptoms she states that she is doing fairly well but she looks with blunted affect. Mental Status Exam Mental Status Exam Patient Appearance: Appropriate Patient Orientation: Person and Situation Level of Consciousness: Awake and Appropriate Patient Behavior: Guarded and Passive Mood Description: Withdrawn Affect Description: Constricted Patient Cognition Impaired: Yes Ability to Follow Directions: Good Speech Pattern: Clear Hallucinations: None Delusions: Not Present Thought Process: Distracted and Slowed Thinking Thought Content: positive for [place] and positive for Poverty of Content Judgement: Fair Diagnostics Vital Signs (24Hr): Vital Signs - 24 hr 05/26/24 09:00 05/26/24 09:01 05/26/24 19:56 Temperature 97.3 F 97.3 F 97.6 F Pulse Rate 74 74 87 Respiratory Rate 16 16 16 Blood Pressure 156/74 H 156/74 H 135/75 Pulse Oximetry 98 98 97 Oxygen Delivery Method Room Air Room Air BMI result Body Mass Index 23.3 Labs 04/24/24 16:11 04/26/24 07:26 Medications Medications Current Medications Acetaminophen (Acetaminophen 325 Mg Tablet) 650 mg PO Q6H PRN PRN Reason: Headache/Pain Mild Scale (1-3) Last Admin: 05/17/24 10:17 Dose: 650 mg Al Hydroxide/Mg Hydroxide (Magnesium Hydrox/Alum Hydrox 30 Ml Oral.Susp) 30 ml PO Q6H PRN PRN Reason: Heartburn/Nausea Benztropine Mesylate (Benztropine Mesylate 0.5 Mg Tablet) 0.25 mg PO BID [facility] Last Admin: 05/26/24 19:58 Dose: 0.25 mg Docusate Sodium (Docusate Sodium 100 Mg Capsule) 100 mg PO BID [facility] Last Admin: 05/26/24 19:58 Dose: 100 mg Gabapentin (Gabapentin 300 Mg Capsule) 600 mg PO BEDTIME [facility] Last Admin: 05/26/24 19:58 Dose: 600 mg Hydroxyzine HCl (Hydroxyzine Hcl 25 Mg Tablet) 25 mg PO Q6H PRN PRN Reason: Anxiety Last Admin: 05/21/24 21:13 Dose: 25 mg Magnesium Hydroxide (Milk Of Magnesia 30 Ml Oral.Susp) 30 ml PO DAILY PRN PRN Reason: Constipation Multi-Ingred Cream/Lotion/Oil/Oint (Mineral Oil/Petrolatum,White 106 Gm Tube) 1 appl TOPICAL BID [facility]; Protocol Last Admin: 05/26/24 19:58 Dose: 1 appl Olanzapine (Olanzapine 5 Mg Tablet) 5 mg PO TID PRN PRN Reason: agitation Last Admin: 05/19/24 19:43 Dose: 5 mg Omeprazole (Omeprazole 20 Mg Capsule.Dr) 20 mg PO BID [facility] Last Admin: 05/26/24 19:58 Dose: 20 mg Paliperidone (Paliperidone Er 6 Mg Tab.Er.24) 6 mg PO DAILY [facility] Last Admin: 05/26/24 09:10 Dose: 6 mg Paliperidone Palmitate (Paliperidone Palmitate 234 Mg/1.5 Ml Syringe) 234 mg IM Q30D [facility] Trazodone HCl (Trazodone Hcl 50 Mg Tablet) 50 mg PO BEDTIME MRX1 PRN PRN Reason: Insomnia Last Admin: 05/21/24 21:13 Dose: 50 mg Zolpidem Tartrate (Zolpidem Tartrate 5 Mg Tablet) 5 mg PO BEDTIME [facility] Last Admin: 05/26/24 19:58 Dose: 5 mg Allergies Allergies Allergy/AdvReac Type Severity Reaction Status Date / Time bee pollen Allergy Severe Anaphylaxis Verified 04/24/24 15:03 levofloxacin [From Levaquin] Allergy Severe Itching Verified 04/24/24 15:03 enoxaparin [From Lovenox] Allergy Intermediate Rash Verified 04/24/24 15:03 Seasonal Allergies Allergy Mild Runny Nose Verified 04/24/24 15:03 venlafaxine [From Effexor] Allergy Mild Constipatio Verified 04/24/24 15:03 n Penicillins Allergy Unknown Unknown Verified 04/24/24 15:03 Assessment & Plan Assessment & Plan (1) Schizoaffective disorder: Status: Acute Code(s): F25.9 - Schizoaffective disorder, unspecified Plan The patient is an elderly female with a past history of bipolar disorder and alcohol use disorder who was in this facility a few weeks ago the respond very well with ECT but she did not compliant with continuation of care. She relapsed and was readmitted. At this moment she is very depressed with suicidal ideation and severe psychomotor retardation. She agreed to restart ECT. Plan 05/08 continue tx. plan to d/c vraylar and keep latuda. continue ECT 05/09 continue tx 05/10 continue tx. 05/12 pt has become manic, paranoid, telling staff that they are trying to poison her and refusing medication.Paranoid thinking that staff is trying to harm her or someone is trying to kill her dog; Prior to this, patient consented to ECT. Today, however, she refused and tried to elope from PACU. Pt saying she does need or want ECT or medication...she says why are you doing this to me? but won't accept discussion of her depression and now lucrecia. 05/13 pt remains disorganized; trying to elope; says she does not want ect or medication. patient has affirmed HCP, her sister Jennifer, affirmed by probate court. [employer] contacted HCP with nurse present (Luba Salomon) who consents to ECT even if pt refuses; also consents to antipsychotic at writers disscretion including IM -Received Invega Sustenna 234mg; restarted since she was on this last admission; will dc vraylar and lutuda as neither proved effective (f/u loading dose to follow) 05/14 pt did received ECT today without incident; on unit, pt tried to elope; would not discuss with travel writer 05/15 pt a little more calm today. Says she is ok to which travel writer shared that it seems ECT is helping. Pt asked if this was so and travel writer again affirmed. 05/16 pt says she is feeling normal... and not depressed..in between. travel writer again affirmed that ECT seems to be helping and she did not disagree....still without much insight. 05/19 continue ECT tx. She had ECT today. 05/20 continue tx. 05/22 continue tx 05/23 continue same treatment 05/24/24- s/p ECT now getting initial trial of invega (new med) and will be working on discharge plan to prevent rapid decompensation on discharge- 05/25/24 continues discharge planning, suggest check cognition with OT before dc- 05/26 continue same treatment 05/27 continue same treatment Reason for continued inpatient stay Substantial Risk for: inability to function, rapid decompensation and med/psych decompensation Time Spent With Patient Time: Total time managing care of this patient today __20__ minutes.
--- NOTE | 2024-05-27 08:36 | HO.POSTANES ---
Post Anesthesia Evaluation Post Anesthesia Evaluation Date of Service: 05/27/24 Anesthesia: General Mental Status: Awake Pain Control: Satisfactory Nausea/Vomiting: None Hydration: Adequate Anesthesia-Related Issues: No Anes. Related Issues
[2024-05-27] MEDS: Benztropine Mesylate 0.5 MG TABLET 0.25 MG PO ×2 (09:50→19:50)
[2024-05-27] MEDS: Docusate Sodium 100 MG CAPSULE PO ×2 (09:50→19:49)
[2024-05-27] MEDS: Paliperidone ER 6 MG TAB.ER.24 PO (09:50)
[2024-05-27] MEDS: Omeprazole 20 MG CAPSULE.DR PO ×2 (09:51→19:50)
[2024-05-27] MEDS: Mineral Oil/Petrolatum,White 106 GM Tube 1 APPL TOPICAL ×2 (18:19→19:51)
[2024-05-27 19:48] VITALS: BP 140/81; PULSE 78; RESP 16; TEMP 36.6; O2SAT 97
[2024-05-27] MEDS: Gabapentin 300 MG CAPSULE 600 MG PO (19:50)
[2024-05-27] MEDS: Zolpidem Tartrate 5 MG TABLET PO (19:51)
[2024-05-28] VITALS (9 sets, daily range): BP systolic 107–147; BP diastolic 57–87; PULSE 72–86; RESP 14–18; TEMP 36.2–36.6; O2SAT 93–98
[2024-05-28] MEDS: Lactated Ringers 1,000 ML 100 ML IVCONT (06:58)
--- NOTE | 2024-05-28 07:00 | HO.ANESPROP2 ---
[facility] Active Problems Active Problems: All Active Problems Schizoaffective disorder (Acute) Pre-op evaluation (Acute) Depression (Acute) Arthritis of right knee (Acute) Bipolar 1 disorder, depressed, severe (Acute) Elevated troponin (Acute) Chest discomfort (Acute) S/P cardiac catheterization (Acute) Bipolar 1 disorder (Acute) Varus deformity of knee (Acute) Osteoarthritis of left knee (Acute) Anxiety (Acute) GERD (gastroesophageal reflux disease) (Acute) Insomnia (Acute) Osteopenia (Acute) Murmur, cardiac (Acute) Status post total knee replacement, left (Acute) Acute deep vein thrombosis (DVT) of left tibial vein (Chronic) Past Medical History Medical History History of skin cancer Hx of bladder problems VITO (generalized anxiety disorder) Murmur, cardiac Hx of thyroid nodule Osteopenia Hx of skin cancer, basal cell Seasonal allergies Insomnia Constipation GERD (gastroesophageal reflux disease) Anxiety History of electroconvulsive therapy Bipolar 1 disorder Functional capacity: independent ambulation Family History Family History Mother Basal cell carcinoma (BCC) in situ of skin Osteoporosis Hyperlipidemia Father CAD (coronary artery disease) Alcoholism Sister Osteoporosis Depression Brother Cancer of tongue Cancer of skin Family history of problems with anesthesia: No Surgical History Surgical History Hx of colonoscopy H/O elbow surgery History of back surgery History of Problems with Anesthesia: No Social History Social History Household Members: Other Household Members Other:: Dog. Housing: Apartment Are you a primary cardiac care unit nurse to a significant other at home: No Do you presently have visiting nurse or other home services: Yes Unable to assess alcohol history related to: Unable to respond Patient Tobacco Use Status: Never used Tobacco Tobacco use type: Cigarette Years Smoked: 30+, now vapes Smoked in Last 30 Days: Yes e-Cigarette/Vaping Use: Currently Using Frequency of e-Cigarette/Vaping Use: Not a lot. Patient Interested in Nicotine Replacement: No Patient Given Instructions on How to Stop Smoking: No Second Hand Smoke Exposure: No Use of substances other than those prescribed or required for medical reasons: No Substance Use Type: Crack/Cocaine Currently Displaying Signs/Symptoms of Drug Intoxication Withdrawal: No Any prior treatment program specific to substance use: No Have you been hit, kicked, punched, or otherwise hurt by someone within the past year? If so, by whom?: No Do you feel safe in your current relationship?: No Current Relationship Is there a partner from a previous relationship who is making you feel unsafe now?: No Are you made to feel afraid or neglected: No Advance Directives: No Advance Directives Information Provided: No Do you have thoughts of harming others: None Do you have a plan to hurt others: No Plan Recently lost weight without trying: Yes How much weight loss: 2-13 pounds Eating poorly because of decreased appetite: Yes Nutrition screen score: 4 Nutrition Risks: No Nutritional Risk Patient : No : No Poor oral hygiene: No service: No Current occupational status: unemployed and retired 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 Sexual orientation: Straight/Heterosexual Meds Allergies Allergy/AdvReac Type Severity Reaction Status Date / Time bee pollen Allergy Severe Anaphylaxis Verified 04/24/24 15:03 levofloxacin [From Levaquin] Allergy Severe Itching Verified 04/24/24 15:03 enoxaparin [From Lovenox] Allergy Intermediate Rash Verified 04/24/24 15:03 Seasonal Allergies Allergy Mild Runny Nose Verified 04/24/24 15:03 venlafaxine [From Effexor] Allergy Mild Constipatio Verified 04/24/24 15:03 n Penicillins Allergy Unknown Unknown Verified 04/24/24 15:03 Active Medications: Current Medications Acetaminophen (Acetaminophen 325 Mg Tablet) 650 mg PO Q6H PRN PRN Reason: Headache/Pain Mild Scale (1-3) Last Admin: 05/17/24 10:17 Dose: 650 mg Al Hydroxide/Mg Hydroxide (Magnesium Hydrox/Alum Hydrox 30 Ml Oral.Susp) 30 ml PO Q6H PRN PRN Reason: Heartburn/Nausea Benztropine Mesylate (Benztropine Mesylate 0.5 Mg Tablet) 0.25 mg PO BID [facility] Last Admin: 05/27/24 19:50 Dose: 0.25 mg Docusate Sodium (Docusate Sodium 100 Mg Capsule) 100 mg PO BID [facility] Last Admin: 05/27/24 19:49 Dose: 100 mg Gabapentin (Gabapentin 300 Mg Capsule) 600 mg PO BEDTIME [facility] Last Admin: 05/27/24 19:50 Dose: 600 mg Hydroxyzine HCl (Hydroxyzine Hcl 25 Mg Tablet) 25 mg PO Q6H PRN PRN Reason: Anxiety Last Admin: 05/21/24 21:13 Dose: 25 mg Lactated Ringer's (Lr) 1,000 mls @ 100 mls/hr IVCONT .Q10H [facility] Last Admin: 05/28/24 06:58 Dose: 100 mls/hr Magnesium Hydroxide (Milk Of Magnesia 30 Ml Oral.Susp) 30 ml PO DAILY PRN PRN Reason: Constipation Multi-Ingred Cream/Lotion/Oil/Oint (Mineral Oil/Petrolatum,White 106 Gm Tube) 1 appl TOPICAL BID [facility]; Protocol Last Admin: 05/27/24 19:51 Dose: 1 appl Olanzapine (Olanzapine 5 Mg Tablet) 5 mg PO TID PRN PRN Reason: agitation Last Admin: 05/19/24 19:43 Dose: 5 mg Omeprazole (Omeprazole 20 Mg Capsule.Dr) 20 mg PO BID [facility] Last Admin: 05/27/24 19:50 Dose: 20 mg Paliperidone (Paliperidone Er 6 Mg Tab.Er.24) 6 mg PO DAILY [facility] Last Admin: 05/27/24 09:50 Dose: 6 mg Paliperidone Palmitate (Paliperidone Palmitate 234 Mg/1.5 Ml Syringe) 234 mg IM Q30D [facility] Trazodone HCl (Trazodone Hcl 50 Mg Tablet) 50 mg PO BEDTIME MRX1 PRN PRN Reason: Insomnia Last Admin: 05/21/24 21:13 Dose: 50 mg Zolpidem Tartrate (Zolpidem Tartrate 5 Mg Tablet) 5 mg PO BEDTIME [facility] Last Admin: 05/27/24 19:51 Dose: 5 mg Home Medications ?Medication ?Instructions ?Recorded ?Confirmed ?Last Taken ?Type mirtazapine 30 mg tablet 30 mg PO BEDTIME 04/24/24 04/24/24 04/23/24 History omeprazole 20 mg capsule,delayed 20 mg PO DAILY@0630 04/25/24 04/25/24 Unknown History release thiamine HCl (vitamin B1) 100 mg 100 mg PO BID 04/25/24 04/25/24 Unknown History tablet (Vitamin B-1) Exam Height,Weight and Vital Signs: Height 5 ft 7 in Weight 67.404 kg Last Vital Signs Temp 97.2 F 05/28/24 06:39 Pulse 77 05/28/24 06:39 Resp 16 05/28/24 06:39 BP 131/71 05/28/24 06:39 Pulse Ox 96 05/28/24 06:39 O2 Del Method Room Air 05/28/24 06:39 O2 Flow Rate 2 05/26/24 08:05 Pertinent Lab Results Pertinent Lab Results: Laboratory Tests 04/24/24 04/24/24 04/26/24 16:11 19:56 07:26 WBC 5.8 RBC 4.34 Hgb 13.2 Hct 37.6 MCV 86.6 MCH 30.4 MCHC 35.1 H RDW 13.1 Plt Count 210 MPV 8.3 L Immature Gran % (Auto) 0.3 Neut % (Auto) 57.0 Lymph % (Auto) 32.2 [place] % (Auto) 9.0 Eos % (Auto) 1.0 Baso % (Auto) 0.5 Lymph # (Auto) 1.9 [place] # (Auto) 0.5 Eos # (Auto) 0.1 Baso # (Auto) 0.0 Abs Immat Gran (auto) 0.02 Absolute Neuts (auto) 3.3 Absolute Nucleated RBC 0.000 Nucleated RBC % (auto) 0.0 Sodium 139 139 Potassium 4.0 4.2 Chloride 106 107 Carbon Dioxide 26 25 Anion Gap 11 L 11 L BUN 15 21 H Creatinine 0.81 0.79 Estim Creat Clear Calc 66.4 68.1 Estimated GFR > 60 > 60 Random Glucose 101 Fasting Glucose 102 H Estimat Average Glucose 117 Hemoglobin A1c % 5.7 Calcium 9.6 9.7 Total Bilirubin 0.2 0.3 AST 21 18 ALT 11 12 Alkaline Phosphatase 91 90 Total Protein 6.8 6.7 Albumin 4.1 4.0 Triglycerides 83 Cholesterol 232 H LDL Cholesterol, Calc 157 H HDL Cholesterol 59 Vitamin B12 383 TSH 0.43 Urine Color Yellow Urine Appearance Clear Urine pH 6.5 Ur Specific [place] 1.020 Urine Protein Negative Urine Glucose (UA) Negative Urine Ketones Negative Urine Blood Negative Urine Nitrite Negative Ur Leukocyte Esterase Small (1+) H Urine RBC 0-2 Urine WBC 6-10 H Ur Squamous Epith Cells 0-2 Urine Bacteria None Seen Hyaline Casts 0-2 Salicylates < 5.0 L Urine Opiates Screen Not Detected Ur Buprenorphine Scrn Not Detected Ur Oxycodone Screen Not Detected Urine Methadone Screen Not Detected Urine Fentanyl Screen Not Detected Acetaminophen < 3 Ur Barbiturates Screen Not Detected Ur Phencyclidine Scrn Not Detected Ur Amphetamines Screen Not Detected U Benzodiazepines Scrn Not Detected Urine Cocaine Screen Not Detected U Marijuana (THC) Screen Not Detected Ethyl Alcohol < 10 Airway Mallampati Class: II TM Dist: >3cm Neck ROM: Full Denture: Upper Heart: rrr Lungs: cta Assessment and Plan Assessment Anesthesia Assessment: Anesthesia Plan Discussed and Chart Reviewed Final Anesthetic Review Family History of Problems with Anesthesia: No History of Problems with Anesthesia: No NPO: Yes ASA Class: III Final Preanesthetic Review: No Changes in Pt Med Stat, Meds/Allgs Chart Reviewed and Consent Obtained/Reviewed Patient Risk: Intermediate Procedure Risk: Intermediate Anesthetic Plan Anesthetic Plan: GA Disposition: Standard PACU
--- NOTE | 2024-05-28 07:58 | MHC.SHP ---
Pre-Procedural Eval Section A - 24 Hr Update-Section A only Date of Service: 05/28/24 The patient is an INPATIENT: Yes Changes since office visit: Yes Changes in Medication and Yes Patient answered all questions; No Cold of Flu in the past 2 weeks and No New Medical Problems The patient has been examined within 24 hours of the surgical procedure. The History & Physical has been completed within 30 days and I have reviewed it.: Yes Section B - Complete if H&P > 30 days Chief Complaint: SI Allergies: Allergies Allergy/AdvReac Type Severity Reaction Status Date / Time bee pollen Allergy Severe Anaphylaxis Verified 04/24/24 15:03 levofloxacin [From Levaquin] Allergy Severe Itching Verified 04/24/24 15:03 enoxaparin [From Lovenox] Allergy Intermediate Rash Verified 04/24/24 15:03 Seasonal Allergies Allergy Mild Runny Nose Verified 04/24/24 15:03 venlafaxine [From Effexor] Allergy Mild Constipatio Verified 04/24/24 15:03 n Penicillins Allergy Unknown Unknown Verified 04/24/24 15:03 Plan I have reviewed the history and physical and performed a pertinent physical examination on my patient. No changes have occurred unless specified. Time Spent With Patient Time: Total time managing care of this patient today ____ minutes.
--- NOTE | 2024-05-28 08:10 | HO.ECTPROC ---
ECT Procedure Note Diagnosis/Treatment Date of Service: 05/28/24 Diagnosis: Bipolar disorder Previous ECT Date: 05/26/24 Current Treatment Number: 5 Treatment: Series Interval Clinical Notes: The patient's mood looks more stable, less dysphoric but still with some blunted affect. Cont tx per Dr Mccabe Time: Total time managing care of this patient today ____ minutes. ECT Settings Device: THYMATRON DGx Electrode Placement: Bifrontal Program/Pulse Width: 0.50 Energy Percent: 100 Seizure Duration By EEG (in seconds): 24 Medications Administration General Anesthetic: Etomidate (12) Muscle Relaxant: Succinylcholine (100) Ancillary Medications Miscillaneous Medications: Midazolam (2 mg) Airway Management Airway Management: Bag Mask Ventilation Treatment Recommendations No Changes Recommended: No change Notes: would hold ect reevaluate need and if retx would do 2 x week Pt Tolerated Procedure w/o Issue: Yes
[2024-05-28] MEDS: Docusate Sodium 100 MG CAPSULE PO ×2 (10:11→20:27)
[2024-05-28] MEDS: Omeprazole 20 MG CAPSULE.DR PO ×2 (10:11→20:27)
[2024-05-28] MEDS: Paliperidone ER 6 MG TAB.ER.24 PO (10:11)
[2024-05-28] MEDS: Benztropine Mesylate 0.5 MG TABLET 0.25 MG PO ×2 (10:11→20:27)
[2024-05-28 13:36] LABS: Appearance Urine Clear; Color Urine Yellow; Glucose Urine UA Negative (Negative); Leukocyte Esterase Urine Negative (Negative); Nitrite Urine Negative (Negative); PH 5.5 (5.0-9.0); Specific Gravity - Urine 1.025 (1.005-1.025); Urine Blood Negative (Negative); Urine Ketones Trace mg/dL (Negative); Urine Protein Negative (Neg-Trace)
[2024-05-28 14:02] LABS: Bacteria Urine None Seen (None Seen); Calcium Oxalate Crystals Urine Present; Hyaline Casts Urine 0-2 /LPF (0-2); RBC Urine 0-2 /HPF (0-2); Squamous Epithelial Cell Urine 0-2 /HPF (0-2); WBC Urine 0-5 /HPF (0-5)
--- NOTE | 2024-05-28 14:58 | HO.PSYCHPN ---
Subjective Subjective Date of Service: 05/28/24 Reason For Visit: SI Subjective Notes: Conditional Voluntary Interim History: The nursing staff reported the patient had been confused with slow responses. Today she had her ECT and after ECT she was with a brighter affect. She remains confused at times but with an improved mood. Mental Status Exam Mental Status Exam Patient Appearance: Well Grooomed Patient Orientation: Person and Situation Level of Consciousness: Awake and Appropriate Patient Behavior: Guarded and Passive Mood Description: Withdrawn Affect Description: Constricted Patient Cognition Impaired: Yes Ability to Follow Directions: Good Speech Pattern: Clear Hallucinations: None Delusions: Paranoid Ideation and Ideas of Reference Thought Process: Distracted and Slowed Thinking Thought Content: positive for [place] and positive for Poverty of Content Judgement: Fair Diagnostics Vital Signs (24Hr): Vital Signs - 24 hr 05/27/24 19:48 05/28/24 05:34 05/28/24 06:39 Temperature 97.8 F 97.4 F 97.2 F Pulse Rate 78 72 77 Respiratory Rate 16 16 16 Blood Pressure 140/81 H 109/57 L 131/71 Pulse Oximetry 97 95 96 Oxygen Delivery Method Room Air Room Air Oxygen Flow Rate 05/28/24 08:37 05/28/24 08:42 05/28/24 08:47 Temperature 97.8 F 97.8 F Pulse Rate 82 81 86 Respiratory Rate 14 14 14 Blood Pressure 133/69 131/75 147/87 H Pulse Oximetry 93 95 95 Oxygen Delivery Method Nasal Cannula Nasal Cannula Nasal Cannula Oxygen Flow Rate 4 4 4 05/28/24 08:52 05/28/24 09:20 05/28/24 09:48 Temperature 97.8 F 97.8 F Pulse Rate 86 76 85 Respiratory Rate 14 14 16 Blood Pressure 138/76 129/68 131/78 Pulse Oximetry 96 95 98 Oxygen Delivery Method Room Air Room Air Oxygen Flow Rate BMI result Body Mass Index 23.3 Labs 04/24/24 16:11 04/26/24 07:26 Labs: Laboratory Results - last 48 hr 05/28/24 13:15 Urine Color Yellow Urine Appearance Clear Urine pH 5.5 Ur Specific [place] 1.025 Urine Protein Negative Urine Glucose (UA) Negative Urine Ketones Trace Urine Blood Negative Urine Nitrite Negative Ur Leukocyte Esterase Negative Urine RBC 0-2 Urine WBC 0-5 Ur Squamous Epith Cells 0-2 Calcium Oxalate Crystal Present Urine Bacteria None Seen Hyaline Casts 0-2 Medications Medications Current Medications Acetaminophen (Acetaminophen 325 Mg Tablet) 650 mg PO Q6H PRN PRN Reason: Headache/Pain Mild Scale (1-3) Last Admin: 05/17/24 10:17 Dose: 650 mg Al Hydroxide/Mg Hydroxide (Magnesium Hydrox/Alum Hydrox 30 Ml Oral.Susp) 30 ml PO Q6H PRN PRN Reason: Heartburn/Nausea Benztropine Mesylate (Benztropine Mesylate 0.5 Mg Tablet) 0.25 mg PO BID [facility] Last Admin: 05/28/24 10:11 Dose: 0.25 mg Docusate Sodium (Docusate Sodium 100 Mg Capsule) 100 mg PO BID [facility] Last Admin: 05/28/24 10:11 Dose: 100 mg Gabapentin (Gabapentin 300 Mg Capsule) 600 mg PO BEDTIME [facility] Last Admin: 05/27/24 19:50 Dose: 600 mg Hydroxyzine HCl (Hydroxyzine Hcl 25 Mg Tablet) 25 mg PO Q6H PRN PRN Reason: Anxiety Last Admin: 05/21/24 21:13 Dose: 25 mg Magnesium Hydroxide (Milk Of Magnesia 30 Ml Oral.Susp) 30 ml PO DAILY PRN PRN Reason: Constipation Multi-Ingred Cream/Lotion/Oil/Oint (Mineral Oil/Petrolatum,White 106 Gm Tube) 1 appl TOPICAL BID [facility]; Protocol Last Admin: 05/28/24 10:14 Dose: Not Given Naloxone HCl (Naloxone Hcl 0.4 Mg/Ml Vial) 0.04 mg IVPUSH Q5M PRN PRN Reason: Excessive sedation or RR < 8 Olanzapine (Olanzapine 5 Mg Tablet) 5 mg PO TID PRN PRN Reason: agitation Last Admin: 05/19/24 19:43 Dose: 5 mg Omeprazole (Omeprazole 20 Mg Capsule.Dr) 20 mg PO BID [facility] Last Admin: 05/28/24 10:11 Dose: 20 mg Paliperidone (Paliperidone Er 6 Mg Tab.Er.24) 6 mg PO DAILY [facility] Last Admin: 05/28/24 10:11 Dose: 6 mg Paliperidone Palmitate (Paliperidone Palmitate 234 Mg/1.5 Ml Syringe) 234 mg IM Q30D [facility] Trazodone HCl (Trazodone Hcl 50 Mg Tablet) 50 mg PO BEDTIME MRX1 PRN PRN Reason: Insomnia Last Admin: 05/21/24 21:13 Dose: 50 mg Zolpidem Tartrate (Zolpidem Tartrate 5 Mg Tablet) 5 mg PO BEDTIME [facility] Last Admin: 05/27/24 19:51 Dose: 5 mg Allergies Allergies Allergy/AdvReac Type Severity Reaction Status Date / Time bee pollen Allergy Severe Anaphylaxis Verified 04/24/24 15:03 levofloxacin [From Levaquin] Allergy Severe Itching Verified 04/24/24 15:03 enoxaparin [From Lovenox] Allergy Intermediate Rash Verified 04/24/24 15:03 Seasonal Allergies Allergy Mild Runny Nose Verified 04/24/24 15:03 venlafaxine [From Effexor] Allergy Mild Constipatio Verified 04/24/24 15:03 n Penicillins Allergy Unknown Unknown Verified 04/24/24 15:03 Assessment & Plan Assessment & Plan (1) Schizoaffective disorder: Status: Acute Code(s): F25.9 - Schizoaffective disorder, unspecified Plan The patient is an elderly female with a past history of bipolar disorder and alcohol use disorder who was in this facility a few weeks ago the respond very well with ECT but she did not compliant with continuation of care. She relapsed and was readmitted. At this moment she is very depressed with suicidal ideation and severe psychomotor retardation. She agreed to restart ECT. Plan 05/08 continue tx. plan to d/c vraylar and keep latuda. continue ECT 05/09 continue tx 05/10 continue tx. 05/12 pt has become manic, paranoid, telling staff that they are trying to poison her and refusing medication.Paranoid thinking that staff is trying to harm her or someone is trying to kill her dog; Prior to this, patient consented to ECT. Today, however, she refused and tried to elope from PACU. Pt saying she does need or want ECT or medication...she says why are you doing this to me? but won't accept discussion of her depression and now lucrecia. 05/13 pt remains disorganized; trying to elope; says she does not want ect or medication. patient has affirmed HCP, her sister Jennifer, affirmed by probate court. [employer] contacted HCP with nurse present (Luba Salomon) who consents to ECT even if pt refuses; also consents to antipsychotic at writers disscretion including IM -Received Invega Sustenna 234mg; restarted since she was on this last admission; will dc vraylar and lutuda as neither proved effective (f/u loading dose to follow) 05/14 pt did received ECT today without incident; on unit, pt tried to elope; would not discuss with show card writer 05/15 pt a little more calm today. Says she is ok to which show card writer shared that it seems ECT is helping. Pt asked if this was so and show card writer again affirmed. 05/16 pt says she is feeling normal... and not depressed..in between. show card writer again affirmed that ECT seems to be helping and she did not disagree....still without much insight. 05/19 continue ECT tx. She had ECT today. 05/20 continue tx. 05/22 continue tx 05/23 continue same treatment 05/24/24- s/p ECT now getting initial trial of invega (new med) and will be working on discharge plan to prevent rapid decompensation on discharge- 05/25/24 continues discharge planning, suggest check cognition with OT before dc- 05/26 continue same treatment 05/27 continue same treatment 05/27 continue same treatment Reason for continued inpatient stay Substantial Risk for: inability to function, rapid decompensation and med/psych decompensation Time Spent With Patient Time: Total time managing care of this patient today __20__ minutes.
[2024-05-28] MEDS: Gabapentin 300 MG CAPSULE 600 MG PO (20:27)
[2024-05-28] MEDS: Zolpidem Tartrate 5 MG TABLET PO (20:30)
[2024-05-28] MEDS: traZODone HCL 50 MG TABLET PO (23:33)
[2024-05-28] MEDS: hydrOXYzine HCL 25 MG TABLET PO (23:33)
[2024-05-29 07:00] VITALS: BMI 23.8
[2024-05-29 07:50] LABS: MANUAL DIFF FLAG NO
[2024-05-29 08:11] LABS: Mean Platelet Volume 8.7 fL (9.4-12.3); PLT CLUMP 1; Red Blood Count 3.95 X10*6/uL (4.20-5.50); SCAN SMEAR FLAG 1
[2024-05-29 08:13] LABS: Basophils Percent Auto 0.7 % (0-2); Eosinophils Absolute Auto 0.1 X10*3/uL (0.0-0.4); Eosinophils Percent Auto 2.4 % (0-4); Hematocrit 35.1 % (37.0-47.0); Hemoglobin 12.3 g/dl (12.0-16.0); Imm Gran Abs Auto 0.02 X10*3/uL (0.00-0.03); Imm Gran Pct Auto 0.3 % (0.0-0.4); Lymphocytes Absolute Auto 1.8 X10*3/uL (1.2-4.9); Lymphocytes Percent Auto 30.3 % (20-40); Mean Corpuscular Hemoglobin 31.1 pg (27.0-33.0); Mean Corpuscular Volume 88.9 fL (80.0-98.0); Monocytes Absolute Auto 0.6 X10*3/uL (0.1-1.2); Monocytes Percent Auto 9.4 % (2-11); Neutrophils Absolute Auto 3.4 x10*3/uL (2.0-8.3); Neutrophils Percent Auto 56.9 % (45-73); Red Cell Distribution Width 14.7 % (11.0-16.0)
[2024-05-29 08:18] VITALS: BP 127/60; PULSE 78; RESP 17; TEMP 36; O2SAT 95
[2024-05-29] MEDS: Paliperidone ER 6 MG TAB.ER.24 PO (08:19)
[2024-05-29] MEDS: Docusate Sodium 100 MG CAPSULE PO ×2 (08:19→20:12)
[2024-05-29] MEDS: Benztropine Mesylate 0.5 MG TABLET 0.25 MG PO ×2 (08:19→20:12)
[2024-05-29] MEDS: Omeprazole 20 MG CAPSULE.DR PO ×2 (08:19→20:12)
[2024-05-29 08:31] LABS: Platelet Count 265 X10*3/uL (160-400)
[2024-05-29 08:41] LABS: Alanine Aminotransferase 18 U/L (0-31); Albumin Level 3.6 g/dL (3.5-5.0); Alkaline Phosphatase 81 U/L (39-117); Anion Gap 14 (12-20); Aspartate Amino Transferase 31 U/L (5-31); Bilirubin Total 0.4 mg/dL (0.0-1.0); Blood Urea Nitrogen 19 mg/dL (9-16); Calcium 9.3 mg/dL (8.4-10.2); Carbon Dioxide 21 mmol/L (22-29); Chloride 108 mmol/L (96-108); Creatinine Clr Calc Pharmacy 74.7; Estimated Glomerular Filt Rate > 60; Glucose Fasting 91 mg/dL (60-99); Potassium 4.3 mmol/L (3.3-5.1); Sodium 139 mmol/L (135-145); Total Protein 6.3 g/dL (6.5-8.0)
--- NOTE | 2024-05-29 12:40 | P.PNPSI_ITS ---
Subjective Subjective Date of Service: 05/29/24 Reason For Visit: SI Interim History: Patient flat somewhat detached cognitively somewhat slowed. Has been getting bifrontal ECT alert and oriented. Patient is out in the milieu participating Medication Compliance: Yes Mental Status Exam Mental Status Exam Patient Appearance: Appropriate Patient Orientation: Person and Situation Level of Consciousness: Awake and Appropriate Patient Behavior: Guarded and Passive Mood Description: Withdrawn Affect Description: Constricted Patient Cognition Impaired: Yes Ability to Follow Directions: Good Speech Pattern: Clear Hallucinations: None Delusions: Not Present Thought Process: Distracted and Slowed Thinking Thought Content: positive for [place] and positive for Poverty of Content Judgement: Poor Diagnostics Vital Signs (24Hr): Vital Signs - 24 hr 05/28/24 20:00 05/29/24 08:18 Temperature 97.8 F 96.8 F Pulse Rate 73 78 Respiratory Rate 18 17 Blood Pressure 107/57 L 127/60 Pulse Oximetry 96 95 Oxygen Delivery Method Room Air Room Air BMI result Body Mass Index 23.3 Labs 05/29/24 07:38 05/29/24 07:38 Labs: Laboratory Results - last 48 hr 05/28/24 05/29/24 13:15 07:38 WBC 6.0 RBC 3.95 L Hgb 12.3 Hct 35.1 L MCV 88.9 MCH 31.1 MCHC 35.0 RDW 14.7 Plt Count 265 D MPV 8.7 L Immature Gran % (Auto) 0.3 Neut % (Auto) 56.9 Lymph % (Auto) 30.3 [place] % (Auto) 9.4 Eos % (Auto) 2.4 Baso % (Auto) 0.7 Lymph # (Auto) 1.8 [place] # (Auto) 0.6 Eos # (Auto) 0.1 Baso # (Auto) 0.0 Abs Immat Gran (auto) 0.02 Absolute Neuts (auto) 3.4 Absolute Nucleated RBC 0.000 Nucleated RBC % (auto) 0.0 Sodium 139 Potassium 4.3 Chloride 108 Carbon Dioxide 21 L Anion Gap 14 BUN 19 H Creatinine 0.72 Estim Creat Clear Calc 74.7 Estimated GFR > 60 Fasting Glucose 91 Calcium 9.3 Total Bilirubin 0.4 AST 31 ALT 18 Alkaline Phosphatase 81 Total Protein 6.3 L Albumin 3.6 Urine Color Yellow Urine Appearance Clear Urine pH 5.5 Ur Specific [place] 1.025 Urine Protein Negative Urine Glucose (UA) Negative Urine Ketones Trace Urine Blood Negative Urine Nitrite Negative Ur Leukocyte Esterase Negative Urine RBC 0-2 Urine WBC 0-5 Ur Squamous Epith Cells 0-2 Calcium Oxalate Crystal Present Urine Bacteria None Seen Hyaline Casts 0-2 Medications Medications Current Medications Acetaminophen (Acetaminophen 325 Mg Tablet) 650 mg PO Q6H PRN PRN Reason: Headache/Pain Mild Scale (1-3) Last Admin: 05/17/24 10:17 Dose: 650 mg Al Hydroxide/Mg Hydroxide (Magnesium Hydrox/Alum Hydrox 30 Ml Oral.Susp) 30 ml PO Q6H PRN PRN Reason: Heartburn/Nausea Benztropine Mesylate (Benztropine Mesylate 0.5 Mg Tablet) 0.25 mg PO BID [facility] Last Admin: 05/29/24 08:19 Dose: 0.25 mg Docusate Sodium (Docusate Sodium 100 Mg Capsule) 100 mg PO BID [facility] Last Admin: 05/29/24 08:19 Dose: 100 mg Gabapentin (Gabapentin 300 Mg Capsule) 600 mg PO BEDTIME [facility] Last Admin: 05/28/24 20:27 Dose: 600 mg Hydroxyzine HCl (Hydroxyzine Hcl 25 Mg Tablet) 25 mg PO Q6H PRN PRN Reason: Anxiety Last Admin: 05/28/24 23:33 Dose: 25 mg Magnesium Hydroxide (Milk Of Magnesia 30 Ml Oral.Susp) 30 ml PO DAILY PRN PRN Reason: Constipation Multi-Ingred Cream/Lotion/Oil/Oint (Mineral Oil/Petrolatum,White 106 Gm Tube) 1 appl TOPICAL BID [facility]; Protocol Last Admin: 05/29/24 08:20 Dose: Not Given Naloxone HCl (Naloxone Hcl 0.4 Mg/Ml Vial) 0.04 mg IVPUSH Q5M PRN PRN Reason: Excessive sedation or RR < 8 Olanzapine (Olanzapine 5 Mg Tablet) 5 mg PO TID PRN PRN Reason: agitation Last Admin: 05/19/24 19:43 Dose: 5 mg Omeprazole (Omeprazole 20 Mg Capsule.Dr) 20 mg PO BID [facility] Last Admin: 05/29/24 08:19 Dose: 20 mg Paliperidone (Paliperidone Er 6 Mg Tab.Er.24) 6 mg PO DAILY [facility] Last Admin: 05/29/24 08:19 Dose: 6 mg Paliperidone Palmitate (Paliperidone Palmitate 234 Mg/1.5 Ml Syringe) 234 mg IM Q30D [facility] Trazodone HCl (Trazodone Hcl 50 Mg Tablet) 50 mg PO BEDTIME MRX1 PRN PRN Reason: Insomnia Last Admin: 05/28/24 23:33 Dose: 50 mg Zolpidem Tartrate (Zolpidem Tartrate 5 Mg Tablet) 5 mg PO BEDTIME [facility] Last Admin: 05/28/24 20:30 Dose: 5 mg Allergies Allergies Allergy/AdvReac Type Severity Reaction Status Date / Time bee pollen Allergy Severe Anaphylaxis Verified 04/24/24 15:03 levofloxacin [From Levaquin] Allergy Severe Itching Verified 04/24/24 15:03 enoxaparin [From Lovenox] Allergy Intermediate Rash Verified 04/24/24 15:03 Seasonal Allergies Allergy Mild Runny Nose Verified 04/24/24 15:03 venlafaxine [From Effexor] Allergy Mild Constipatio Verified 04/24/24 15:03 n Penicillins Allergy Unknown Unknown Verified 04/24/24 15:03 Assessment & Plan Assessment & Plan (1) Schizoaffective disorder: Status: Acute Code(s): F25.9 - Schizoaffective disorder, unspecified Plan The patient is an elderly female with a past history of bipolar disorder and alcohol use disorder who was in this facility a few weeks ago the respond very well with ECT but she did not compliant with continuation of care. She relapsed and was readmitted. At this moment she is very depressed with suicidal ideation and severe psychomotor retardation. She agreed to restart ECT. Plan 05/08 continue tx. plan to d/c vraylar and keep latuda. continue ECT 05/09 continue tx 05/10 continue tx. 05/12 pt has become manic, paranoid, telling staff that they are trying to poison her and refusing medication.Paranoid thinking that staff is trying to harm her or someone is trying to kill her dog; Prior to this, patient consented to ECT. Today, however, she refused and tried to elope from PACU. Pt saying she does need or want ECT or medication...she says why are you doing this to me? but won't accept discussion of her depression and now lucrecia. 05/13 pt remains disorganized; trying to elope; says she does not want ect or medication. patient has affirmed HCP, her sister Jennifer, affirmed by probate court. [employer] contacted HCP with nurse present (Luba Salomon) who consents to ECT even if pt refuses; also consents to antipsychotic at writers disscretion including IM -Received Invega Sustenna 234mg; restarted since she was on this last admission; will dc vraylar and lutuda as neither proved effective (f/u loading dose to follow) 05/14 pt did received ECT today without incident; on unit, pt tried to elope; would not discuss with fiction writer 05/15 pt a little more calm today. Says she is ok to which fiction writer shared that it seems ECT is helping. Pt asked if this was so and fiction writer again affirmed. 05/16 pt says she is feeling normal... and not depressed..in between. fiction writer again affirmed that ECT seems to be helping and she did not disagree....still without much insight. 05/19 continue ECT tx. She had ECT today. 05/20 continue tx. 05/22 continue tx 05/23 continue same treatment 05/24/24- s/p ECT now getting initial trial of invega (new med) and will be working on discharge plan to prevent rapid decompensation on discharge- 05/25/24 continues discharge planning, suggest check cognition with OT before dc- 05/26 continue same treatment 05/27 continue same treatment 05/27 continue same treatment 05/29/2024 Patient tolerating ECT does seem cognitively dulled will see how patient does without ECT over the next few days. Post ECT cognitive slowing versus residual symptoms. Continue plan of care Invega started Reason for continued inpatient stay Substantial Risk for: inability to function and rapid decompensation Time Spent With Patient Time: Total time managing care of this patient today ____ minutes.
[2024-05-29 20:09] VITALS: BP 104/60; PULSE 97; RESP 17; TEMP 36.3; O2SAT 96
[2024-05-29] MEDS: Zolpidem Tartrate 5 MG TABLET PO (20:12)
[2024-05-29] MEDS: Gabapentin 300 MG CAPSULE 600 MG PO (20:12)
[2024-05-29] MEDS: Mineral Oil/Petrolatum,White 106 GM Tube 1 APPL TOPICAL (20:13)
[2024-05-30 08:00] VITALS: BP 146/71; PULSE 85; RESP 19; TEMP 36.1; O2SAT 99
[2024-05-30] MEDS: Mineral Oil/Petrolatum,White 106 GM Tube 1 APPL TOPICAL (08:37)
[2024-05-30] MEDS: Benztropine Mesylate 0.5 MG TABLET 0.25 MG PO ×2 (08:38→20:06)
[2024-05-30] MEDS: Paliperidone ER 6 MG TAB.ER.24 PO (08:38)
[2024-05-30] MEDS: Docusate Sodium 100 MG CAPSULE PO ×2 (08:39→20:06)
[2024-05-30] MEDS: Omeprazole 20 MG CAPSULE.DR PO ×2 (08:39→20:06)
--- NOTE | 2024-05-30 11:20 | PC.NURSE ---
no ECT today as today is considered a holiday (day after gi).
--- NOTE | 2024-05-30 15:01 | HO.PSYCHPN ---
Subjective Subjective Date of Service: 05/30/24 Reason For Visit: SI Subjective Notes: Conditional Voluntary Interim History: The nursing staff reported the patient had been confused after ECT. The nursing staff also reported that she had been compliant with treatment. On interview the patient denies new symptoms looks with a brighter affect. Mental Status Exam Mental Status Exam Patient Appearance: Appropriate Patient Orientation: Person and Situation Level of Consciousness: Awake and Appropriate Patient Behavior: Guarded and Passive Mood Description: Withdrawn Affect Description: Constricted Patient Cognition Impaired: Yes Ability to Follow Directions: Good Speech Pattern: Clear Hallucinations: None Delusions: Not Present Thought Process: Distracted and Slowed Thinking Thought Content: positive for [place] and positive for Poverty of Content Judgement: Poor Diagnostics Vital Signs (24Hr): Vital Signs - 24 hr 05/29/24 20:09 05/30/24 08:00 Temperature 97.3 F 96.9 F Pulse Rate 97 85 Respiratory Rate 17 19 Blood Pressure 104/60 146/71 H Pulse Oximetry 96 99 Oxygen Delivery Method Room Air Room Air BMI result Body Mass Index 23.8 Labs 05/29/24 07:38 05/29/24 07:38 Labs: Laboratory Results - last 48 hr 05/29/24 07:38 WBC 6.0 RBC 3.95 L Hgb 12.3 Hct 35.1 L MCV 88.9 MCH 31.1 MCHC 35.0 RDW 14.7 Plt Count 265 D MPV 8.7 L Immature Gran % (Auto) 0.3 Neut % (Auto) 56.9 Lymph % (Auto) 30.3 [place] % (Auto) 9.4 Eos % (Auto) 2.4 Baso % (Auto) 0.7 Lymph # (Auto) 1.8 [place] # (Auto) 0.6 Eos # (Auto) 0.1 Baso # (Auto) 0.0 Abs Immat Gran (auto) 0.02 Absolute Neuts (auto) 3.4 Absolute Nucleated RBC 0.000 Nucleated RBC % (auto) 0.0 Sodium 139 Potassium 4.3 Chloride 108 Carbon Dioxide 21 L Anion Gap 14 BUN 19 H Creatinine 0.72 Estim Creat Clear Calc 74.7 Estimated GFR > 60 Fasting Glucose 91 Calcium 9.3 Total Bilirubin 0.4 AST 31 ALT 18 Alkaline Phosphatase 81 Total Protein 6.3 L Albumin 3.6 Medications Medications Current Medications Acetaminophen (Acetaminophen 325 Mg Tablet) 650 mg PO Q6H PRN PRN Reason: Headache/Pain Mild Scale (1-3) Last Admin: 05/17/24 10:17 Dose: 650 mg Al Hydroxide/Mg Hydroxide (Magnesium Hydrox/Alum Hydrox 30 Ml Oral.Susp) 30 ml PO Q6H PRN PRN Reason: Heartburn/Nausea Benztropine Mesylate (Benztropine Mesylate 0.5 Mg Tablet) 0.25 mg PO BID [facility] Last Admin: 05/30/24 08:38 Dose: 0.25 mg Docusate Sodium (Docusate Sodium 100 Mg Capsule) 100 mg PO BID [facility] Last Admin: 05/30/24 08:39 Dose: 100 mg Gabapentin (Gabapentin 300 Mg Capsule) 600 mg PO BEDTIME [facility] Last Admin: 05/29/24 20:12 Dose: 600 mg Hydroxyzine HCl (Hydroxyzine Hcl 25 Mg Tablet) 25 mg PO Q6H PRN PRN Reason: Anxiety Last Admin: 05/28/24 23:33 Dose: 25 mg Magnesium Hydroxide (Milk Of Magnesia 30 Ml Oral.Susp) 30 ml PO DAILY PRN PRN Reason: Constipation Multi-Ingred Cream/Lotion/Oil/Oint (Mineral Oil/Petrolatum,White 106 Gm Tube) 1 appl TOPICAL BID [facility]; Protocol Last Admin: 05/30/24 08:37 Dose: 1 appl Naloxone HCl (Naloxone Hcl 0.4 Mg/Ml Vial) 0.04 mg IVPUSH Q5M PRN PRN Reason: Excessive sedation or RR < 8 Olanzapine (Olanzapine 5 Mg Tablet) 5 mg PO TID PRN PRN Reason: agitation Last Admin: 05/19/24 19:43 Dose: 5 mg Omeprazole (Omeprazole 20 Mg Capsule.Dr) 20 mg PO BID [facility] Last Admin: 05/30/24 08:39 Dose: 20 mg Paliperidone (Paliperidone Er 6 Mg Tab.Er.24) 6 mg PO DAILY [facility] Last Admin: 05/30/24 08:38 Dose: 6 mg Paliperidone Palmitate (Paliperidone Palmitate 234 Mg/1.5 Ml Syringe) 234 mg IM Q30D [facility] Trazodone HCl (Trazodone Hcl 50 Mg Tablet) 50 mg PO BEDTIME MRX1 PRN PRN Reason: Insomnia Last Admin: 05/28/24 23:33 Dose: 50 mg Zolpidem Tartrate (Zolpidem Tartrate 5 Mg Tablet) 5 mg PO BEDTIME [facility] Last Admin: 05/29/24 20:12 Dose: 5 mg Allergies Allergies Allergy/AdvReac Type Severity Reaction Status Date / Time bee pollen Allergy Severe Anaphylaxis Verified 04/24/24 15:03 levofloxacin [From Levaquin] Allergy Severe Itching Verified 04/24/24 15:03 enoxaparin [From Lovenox] Allergy Intermediate Rash Verified 04/24/24 15:03 Seasonal Allergies Allergy Mild Runny Nose Verified 04/24/24 15:03 venlafaxine [From Effexor] Allergy Mild Constipatio Verified 04/24/24 15:03 n Penicillins Allergy Unknown Unknown Verified 04/24/24 15:03 Assessment & Plan Assessment & Plan (1) Schizoaffective disorder: Status: Acute Code(s): F25.9 - Schizoaffective disorder, unspecified Plan The patient is an elderly female with a past history of bipolar disorder and alcohol use disorder who was in this facility a few weeks ago the respond very well with ECT but she did not compliant with continuation of care. She relapsed and was readmitted. At this moment she is very depressed with suicidal ideation and severe psychomotor retardation. She agreed to restart ECT. Plan 05/08 continue tx. plan to d/c vraylar and keep latuda. continue ECT 05/09 continue tx 05/10 continue tx. 05/12 pt has become manic, paranoid, telling staff that they are trying to poison her and refusing medication.Paranoid thinking that staff is trying to harm her or someone is trying to kill her dog; Prior to this, patient consented to ECT. Today, however, she refused and tried to elope from PACU. Pt saying she does need or want ECT or medication...she says why are you doing this to me? but won't accept discussion of her depression and now lucrecia. 05/13 pt remains disorganized; trying to elope; says she does not want ect or medication. patient has affirmed HCP, her sister Jennifer, affirmed by probate court. Metal Mold Dresser contacted HCP with nurse present (Luba Salomon) who consents to ECT even if pt refuses; also consents to antipsychotic at writers disscretion including IM -Received Invega Sustenna 234mg; restarted since she was on this last admission; will dc vraylar and lutuda as neither proved effective (f/u loading dose to follow) 05/14 pt did received ECT today without incident; on unit, pt tried to elope; would not discuss with curriculum writer 05/15 pt a little more calm today. Says she is ok to which curriculum writer shared that it seems ECT is helping. Pt asked if this was so and curriculum writer again affirmed. 05/16 pt says she is feeling normal... and not depressed..in between. curriculum writer again affirmed that ECT seems to be helping and she did not disagree....still without much insight. 05/19 continue ECT tx. She had ECT today. 05/20 continue tx. 05/22 continue tx 05/23 continue same treatment 05/24/24- s/p ECT now getting initial trial of invega (new med) and will be working on discharge plan to prevent rapid decompensation on discharge- 05/25/24 continues discharge planning, suggest check cognition with OT before dc- 05/26 continue same treatment 05/27 continue same treatment 05/28 continue same treatment 05/30 continue same treatment Reason for continued inpatient stay Substantial Risk for: inability to function, rapid decompensation and med/psych decompensation Time Spent With Patient Time: Total time managing care of this patient today __20__ minutes.
[2024-05-30 20:00] VITALS: BP 144/79; PULSE 91; RESP 18; TEMP 36.7; O2SAT 97
[2024-05-30] MEDS: Zolpidem Tartrate 5 MG TABLET PO (20:06)
[2024-05-30] MEDS: Gabapentin 300 MG CAPSULE 600 MG PO (20:06)
[2024-05-30] MEDS: hydrOXYzine HCL 25 MG TABLET PO (20:06)
[2024-05-31 08:31] VITALS: BP 121/70; PULSE 84; RESP 15; TEMP 36.8; O2SAT 97
[2024-05-31] MEDS: Paliperidone ER 6 MG TAB.ER.24 PO (08:32)
[2024-05-31] MEDS: Omeprazole 20 MG CAPSULE.DR PO ×2 (08:32→19:50)
[2024-05-31] MEDS: Docusate Sodium 100 MG CAPSULE PO ×2 (08:32→19:50)
[2024-05-31] MEDS: Benztropine Mesylate 0.5 MG TABLET 0.25 MG PO ×2 (08:32→19:50)
[2024-05-31 19:46] VITALS: BP 145/84; PULSE 89; RESP 17; TEMP 36.2; O2SAT 95
[2024-05-31] MEDS: Mineral Oil/Petrolatum,White 106 GM Tube 1 APPL TOPICAL (19:50)
[2024-05-31] MEDS: Zolpidem Tartrate 5 MG TABLET PO (19:50)
[2024-05-31] MEDS: Gabapentin 300 MG CAPSULE 600 MG PO (19:50)
--- NOTE | 2024-05-31 23:11 | P.PNPSI_ITS ---
Subjective Subjective Date of Service: 05/31/24 Reason For Visit: SI Subjective Notes: Conditional Voluntary Interim History: The nursing staff reported the patient had been confused/blunted after ECT. ect on hold On interview the patient states she is in gemeral,better Medication Compliance: Yes Mental Status Exam Mental Status Exam Patient Appearance: Appropriate Patient Orientation: Person and Situation Level of Consciousness: Awake and Appropriate Patient Behavior: Guarded and Passive Mood Description: Withdrawn Affect Description: Constricted Patient Cognition Impaired: Yes Ability to Follow Directions: Good Speech Pattern: Clear Hallucinations: None Delusions: Ideas of Reference Thought Process: Intact, Goal Oriented and Slowed Thinking Thought Content: positive for [place] and positive for Poverty of Content Judgement: Fair Judgement and Insight: improved mood flat affect no psychosis Diagnostics Vital Signs (24Hr): Vital Signs - 24 hr 05/31/24 08:31 05/31/24 19:46 Temperature 98.2 F 97.2 F Pulse Rate 84 89 Respiratory Rate 15 17 Blood Pressure 121/70 145/84 H Pulse Oximetry 97 95 Oxygen Delivery Method Room Air Room Air BMI result Body Mass Index 23.8 Labs 05/29/24 07:38 05/29/24 07:38 Medications Medications Current Medications Acetaminophen (Acetaminophen 325 Mg Tablet) 650 mg PO Q6H PRN PRN Reason: Headache/Pain Mild Scale (1-3) Last Admin: 05/17/24 10:17 Dose: 650 mg Al Hydroxide/Mg Hydroxide (Magnesium Hydrox/Alum Hydrox 30 Ml Oral.Susp) 30 ml PO Q6H PRN PRN Reason: Heartburn/Nausea Benztropine Mesylate (Benztropine Mesylate 0.5 Mg Tablet) 0.25 mg PO BID [facility] Last Admin: 05/31/24 19:50 Dose: 0.25 mg Docusate Sodium (Docusate Sodium 100 Mg Capsule) 100 mg PO BID [facility] Last Admin: 05/31/24 19:50 Dose: 100 mg Gabapentin (Gabapentin 300 Mg Capsule) 600 mg PO BEDTIME [facility] Last Admin: 05/31/24 19:50 Dose: 600 mg Hydroxyzine HCl (Hydroxyzine Hcl 25 Mg Tablet) 25 mg PO Q6H PRN PRN Reason: Anxiety Last Admin: 05/30/24 20:06 Dose: 25 mg Magnesium Hydroxide (Milk Of Magnesia 30 Ml Oral.Susp) 30 ml PO DAILY PRN PRN Reason: Constipation Multi-Ingred Cream/Lotion/Oil/Oint (Mineral Oil/Petrolatum,White 106 Gm Tube) 1 appl TOPICAL BID [facility]; Protocol Last Admin: 05/31/24 19:50 Dose: 1 appl Naloxone HCl (Naloxone Hcl 0.4 Mg/Ml Vial) 0.04 mg IVPUSH Q5M PRN PRN Reason: Excessive sedation or RR < 8 Olanzapine (Olanzapine 5 Mg Tablet) 5 mg PO TID PRN PRN Reason: agitation Last Admin: 05/19/24 19:43 Dose: 5 mg Omeprazole (Omeprazole 20 Mg Capsule.Dr) 20 mg PO BID [facility] Last Admin: 05/31/24 19:50 Dose: 20 mg Paliperidone (Paliperidone Er 6 Mg Tab.Er.24) 6 mg PO DAILY [facility] Last Admin: 05/31/24 08:32 Dose: 6 mg Paliperidone Palmitate (Paliperidone Palmitate 234 Mg/1.5 Ml Syringe) 234 mg IM Q30D [facility] Trazodone HCl (Trazodone Hcl 50 Mg Tablet) 50 mg PO BEDTIME MRX1 PRN PRN Reason: Insomnia Last Admin: 05/28/24 23:33 Dose: 50 mg Zolpidem Tartrate (Zolpidem Tartrate 5 Mg Tablet) 5 mg PO BEDTIME [facility] Last Admin: 05/31/24 19:50 Dose: 5 mg Allergies Allergies Allergy/AdvReac Type Severity Reaction Status Date / Time bee pollen Allergy Severe Anaphylaxis Verified 04/24/24 15:03 levofloxacin [From Levaquin] Allergy Severe Itching Verified 04/24/24 15:03 enoxaparin [From Lovenox] Allergy Intermediate Rash Verified 04/24/24 15:03 Seasonal Allergies Allergy Mild Runny Nose Verified 04/24/24 15:03 venlafaxine [From Effexor] Allergy Mild Constipatio Verified 04/24/24 15:03 n Penicillins Allergy Unknown Unknown Verified 04/24/24 15:03 Assessment & Plan Assessment & Plan (1) Schizoaffective disorder: Status: Acute Code(s): F25.9 - Schizoaffective disorder, unspecified Plan The patient is an elderly female with a past history of bipolar disorder and alcohol use disorder who was in this facility a few weeks ago the respond very well with ECT but she did not compliant with continuation of care. She relapsed and was readmitted. At this moment she is very depressed with suicidal ideation and severe psychomotor retardation. She agreed to restart ECT. Plan 05/08 continue tx. plan to d/c vraylar and keep latuda. continue ECT 05/09 continue tx 05/10 continue tx. 05/12 pt has become manic, paranoid, telling staff that they are trying to poison her and refusing medication.Paranoid thinking that staff is trying to harm her or someone is trying to kill her dog; Prior to this, patient consented to ECT. Today, however, she refused and tried to elope from PACU. Pt saying she does need or want ECT or medication...she says why are you doing this to me? but won't accept discussion of her depression and now lucrecia. 05/13 pt remains disorganized; trying to elope; says she does not want ect or medication. patient has affirmed HCP, her sister Jennifer, affirmed by probate court. [employer] Technician contacted HCP with nurse present (Luba Salomon) who consents to ECT even if pt refuses; also consents to antipsychotic at writers disscretion including IM -Received Invega Sustenna 234mg; restarted since she was on this last admission; will dc vraylar and lutuda as neither proved effective (f/u loading dose to follow) 05/14 pt did received ECT today without incident; on unit, pt tried to elope; would not discuss with medical technical writer 05/15 pt a little more calm today. Says she is ok to which medical technical writer shared that it seems ECT is helping. Pt asked if this was so and medical technical writer again affirmed. 05/16 pt says she is feeling normal... and not depressed..in between. medical technical writer again affirmed that ECT seems to be helping and she did not disagree....still without much insight. 05/19 continue ECT tx. She had ECT today. 05/20 continue tx. 05/22 continue tx 05/23 continue same treatment 05/24/24- s/p ECT now getting initial trial of invega (new med) and will be working on discharge plan to prevent rapid decompensation on discharge- 05/25/24 continues discharge planning, suggest check cognition with OT before dc- 05/26 continue same treatment 05/27 continue same treatment 05/27 continue same treatment 05/29/2024 Patient tolerating ECT does seem cognitively dulled will see how patient does without ECT over the next few days. Post ECT cognitive slowing versus residual symptoms. Continue plan of care Invega started 05/31/24 reevaluate eed for further ect Reason for continued inpatient stay Substantial Risk for: harm to self, inability to function and rapid decompensation Time Spent With Patient Time: Total time managing care of this patient today ____ minutes.
[2024-06-01 08:00] VITALS: BP 114/64; PULSE 84; RESP 15; TEMP 36.7; O2SAT 96
[2024-06-01] MEDS: Paliperidone ER 6 MG TAB.ER.24 PO (08:02)
[2024-06-01] MEDS: Benztropine Mesylate 0.5 MG TABLET 0.25 MG PO ×2 (08:02→19:38)
[2024-06-01] MEDS: Omeprazole 20 MG CAPSULE.DR PO ×2 (08:02→19:37)
[2024-06-01] MEDS: Docusate Sodium 100 MG CAPSULE PO ×2 (08:03→19:38)
[2024-06-01] MEDS: hydrOXYzine HCL 25 MG TABLET PO (14:21)
[2024-06-01 19:36] VITALS: BP 123/69; PULSE 82; RESP 16; TEMP 36.8; O2SAT 96
[2024-06-01] MEDS: Zolpidem Tartrate 5 MG TABLET PO (19:37)
[2024-06-01] MEDS: Gabapentin 300 MG CAPSULE 600 MG PO (19:38)
[2024-06-02 08:00] VITALS: BP 115/69; PULSE 84; RESP 18; TEMP 36.1; O2SAT 97
[2024-06-02] MEDS: Paliperidone ER 6 MG TAB.ER.24 PO (09:10)
[2024-06-02] MEDS: Docusate Sodium 100 MG CAPSULE PO ×2 (09:11→20:18)
[2024-06-02] MEDS: Benztropine Mesylate 0.5 MG TABLET 0.25 MG PO ×2 (09:11→20:18)
[2024-06-02] MEDS: Omeprazole 20 MG CAPSULE.DR PO ×2 (09:11→20:18)
[2024-06-02] MEDS: Mineral Oil/Petrolatum,White 106 GM Tube 1 APPL TOPICAL (09:13)
--- NOTE | 2024-06-02 16:52 | HO.PSYCHPN ---
Subjective Subjective Date of Service: 06/02/24 Reason For Visit: SI Subjective Notes: Conditional Voluntary Interim History: The nursing staff reported that her affect is brighter, she had been more talkative and compliant with medications. On interview the patient denies new symptoms poor insight into her condition and discharge planning. Mental Status Exam Mental Status Exam Patient Appearance: Appropriate Patient Orientation: Person and Situation Level of Consciousness: Awake and Appropriate Patient Behavior: Guarded and Passive Mood Description: Withdrawn Affect Description: Constricted Patient Cognition Impaired: Yes Ability to Follow Directions: Good Speech Pattern: Clear Hallucinations: None Delusions: Not Present Thought Process: Distracted and Slowed Thinking Thought Content: positive for [place] and positive for Poverty of Content Judgement: Poor Diagnostics Vital Signs (24Hr): Vital Signs - 24 hr 06/01/24 19:36 06/02/24 08:00 Temperature 98.2 F 96.9 F Pulse Rate 82 84 Respiratory Rate 16 18 Blood Pressure 123/69 115/69 Pulse Oximetry 96 97 Oxygen Delivery Method Room Air Room Air BMI result Body Mass Index 23.8 Labs 05/29/24 07:38 05/29/24 07:38 Medications Medications Current Medications Acetaminophen (Acetaminophen 325 Mg Tablet) 650 mg PO Q6H PRN PRN Reason: Headache/Pain Mild Scale (1-3) Last Admin: 05/17/24 10:17 Dose: 650 mg Al Hydroxide/Mg Hydroxide (Magnesium Hydrox/Alum Hydrox 30 Ml Oral.Susp) 30 ml PO Q6H PRN PRN Reason: Heartburn/Nausea Benztropine Mesylate (Benztropine Mesylate 0.5 Mg Tablet) 0.25 mg PO BID [facility] Last Admin: 06/02/24 09:11 Dose: 0.25 mg Docusate Sodium (Docusate Sodium 100 Mg Capsule) 100 mg PO BID [facility] Last Admin: 06/02/24 09:11 Dose: 100 mg Gabapentin (Gabapentin 300 Mg Capsule) 600 mg PO BEDTIME [facility] Last Admin: 06/01/24 19:38 Dose: 600 mg Hydroxyzine HCl (Hydroxyzine Hcl 25 Mg Tablet) 25 mg PO Q6H PRN PRN Reason: Anxiety Last Admin: 06/01/24 14:21 Dose: 25 mg Magnesium Hydroxide (Milk Of Magnesia 30 Ml Oral.Susp) 30 ml PO DAILY PRN PRN Reason: Constipation Multi-Ingred Cream/Lotion/Oil/Oint (Mineral Oil/Petrolatum,White 106 Gm Tube) 1 appl TOPICAL BID [facility]; Protocol Last Admin: 06/02/24 09:13 Dose: 1 appl Naloxone HCl (Naloxone Hcl 0.4 Mg/Ml Vial) 0.04 mg IVPUSH Q5M PRN PRN Reason: Excessive sedation or RR < 8 Olanzapine (Olanzapine 5 Mg Tablet) 5 mg PO TID PRN PRN Reason: agitation Last Admin: 05/19/24 19:43 Dose: 5 mg Omeprazole (Omeprazole 20 Mg Capsule.Dr) 20 mg PO BID [facility] Last Admin: 06/02/24 09:11 Dose: 20 mg Paliperidone (Paliperidone Er 6 Mg Tab.Er.24) 6 mg PO DAILY [facility] Last Admin: 06/02/24 09:10 Dose: 6 mg Paliperidone Palmitate (Paliperidone Palmitate 234 Mg/1.5 Ml Syringe) 234 mg IM Q30D [facility] Trazodone HCl (Trazodone Hcl 50 Mg Tablet) 50 mg PO BEDTIME MRX1 PRN PRN Reason: Insomnia Last Admin: 05/28/24 23:33 Dose: 50 mg Zolpidem Tartrate (Zolpidem Tartrate 5 Mg Tablet) 5 mg PO BEDTIME [facility] Last Admin: 06/01/24 19:37 Dose: 5 mg Allergies Allergies Allergy/AdvReac Type Severity Reaction Status Date / Time bee pollen Allergy Severe Anaphylaxis Verified 04/24/24 15:03 levofloxacin [From Levaquin] Allergy Severe Itching Verified 04/24/24 15:03 enoxaparin [From Lovenox] Allergy Intermediate Rash Verified 04/24/24 15:03 Seasonal Allergies Allergy Mild Runny Nose Verified 04/24/24 15:03 venlafaxine [From Effexor] Allergy Mild Constipatio Verified 04/24/24 15:03 n Penicillins Allergy Unknown Unknown Verified 04/24/24 15:03 Assessment & Plan Assessment & Plan (1) Schizoaffective disorder: Status: Acute Code(s): F25.9 - Schizoaffective disorder, unspecified Plan The patient is an elderly female with a past history of bipolar disorder and alcohol use disorder who was in this facility a few weeks ago the respond very well with ECT but she did not compliant with continuation of care. She relapsed and was readmitted. At this moment she is very depressed with suicidal ideation and severe psychomotor retardation. She agreed to restart ECT. Plan 05/08 continue tx. plan to d/c vraylar and keep latuda. continue ECT 05/09 continue tx 05/10 continue tx. 05/12 pt has become manic, paranoid, telling staff that they are trying to poison her and refusing medication.Paranoid thinking that staff is trying to harm her or someone is trying to kill her dog; Prior to this, patient consented to ECT. Today, however, she refused and tried to elope from PACU. Pt saying she does need or want ECT or medication...she says why are you doing this to me? but won't accept discussion of her depression and now lucrecia. 05/13 pt remains disorganized; trying to elope; says she does not want ect or medication. patient has affirmed HCP, her sister Jennifer, affirmed by probate court. Quality Management Coordinator contacted HCP with nurse present (Luba Salomon) who consents to ECT even if pt refuses; also consents to antipsychotic at writers disscretion including IM -Received Invega Sustenna 234mg; restarted since she was on this last admission; will dc vraylar and lutuda as neither proved effective (f/u loading dose to follow) 05/14 pt did received ECT today without incident; on unit, pt tried to elope; would not discuss with freelance writer 05/15 pt a little more calm today. Says she is ok to which freelance writer shared that it seems ECT is helping. Pt asked if this was so and freelance writer again affirmed. 05/16 pt says she is feeling normal... and not depressed..in between. freelance writer again affirmed that ECT seems to be helping and she did not disagree....still without much insight. 05/19 continue ECT tx. She had ECT today. 05/20 continue tx. 05/22 continue tx 05/23 continue same treatment 05/24/24- s/p ECT now getting initial trial of invega (new med) and will be working on discharge plan to prevent rapid decompensation on discharge- 05/25/24 continues discharge planning, suggest check cognition with OT before dc- 05/26 continue same treatment 05/27 continue same treatment 05/27 continue same treatment 05/29/2024 Patient tolerating ECT does seem cognitively dulled will see how patient does without ECT over the next few days. Post ECT cognitive slowing versus residual symptoms. Continue plan of care Invega started Plan 1. Continue same treatment. 2. ECT hold for today we will reassess for Sunday Reason for continued inpatient stay Substantial Risk for: inability to function, rapid decompensation and med/psych decompensation Time Spent With Patient Time: Total time managing care of this patient today ___20_ minutes.
[2024-06-02 20:00] VITALS: BP 121/72; PULSE 92; RESP 18; TEMP 36.6; O2SAT 98
[2024-06-02] MEDS: hydrOXYzine HCL 25 MG TABLET PO (20:18)
[2024-06-02] MEDS: Zolpidem Tartrate 5 MG TABLET PO (20:18)
[2024-06-02] MEDS: Gabapentin 300 MG CAPSULE 600 MG PO (20:18)
[2024-06-02] MEDS: traZODone HCL 50 MG TABLET PO (22:22)
[2024-06-02] MEDS: OLANZapine 5 MG TABLET PO (22:23)
[2024-06-03 08:00] VITALS: BP 124/66; PULSE 87; RESP 18; TEMP 36.6; O2SAT 98
[2024-06-03] MEDS: Omeprazole 20 MG CAPSULE.DR PO ×2 (08:32→21:27)
[2024-06-03] MEDS: Docusate Sodium 100 MG CAPSULE PO ×2 (08:32→21:27)
[2024-06-03] MEDS: Paliperidone ER 6 MG TAB.ER.24 PO (08:33)
[2024-06-03] MEDS: Benztropine Mesylate 0.5 MG TABLET 0.25 MG PO ×2 (08:33→21:27)
--- NOTE | 2024-06-03 16:51 | P.PNPSI_ITS ---
Subjective Subjective Date of Service: 06/03/24 Reason For Visit: SI Subjective Notes: Conditional Voluntary Interim History: The nursing staff reported the patient had been compliant with treatment. She ready has finish her ECT course. The medical social worker reported that son looks is interested in her care. On interview the patient denies new symptoms, waiting for placement. Mental Status Exam Mental Status Exam Patient Appearance: Well Grooomed and Appropriate Patient Orientation: Person and Situation Level of Consciousness: Awake and Appropriate Patient Behavior: Guarded and Passive Mood Description: Withdrawn Affect Description: Constricted Patient Cognition Impaired: Yes Ability to Follow Directions: Good Speech Pattern: Clear Hallucinations: None Delusions: Paranoid Ideation and Ideas of Reference Thought Process: Distracted and Slowed Thinking Thought Content: positive for [place] and positive for Poverty of Content Judgement: Poor Diagnostics Vital Signs (24Hr): Vital Signs - 24 hr 06/02/24 20:00 06/03/24 08:00 Temperature 97.8 F 97.9 F Pulse Rate 92 87 Respiratory Rate 18 18 Blood Pressure 121/72 124/66 Pulse Oximetry 98 98 Oxygen Delivery Method Room Air Room Air BMI result Body Mass Index 23.8 Labs 05/29/24 07:38 05/29/24 07:38 Medications Medications Current Medications Acetaminophen (Acetaminophen 325 Mg Tablet) 650 mg PO Q6H PRN PRN Reason: Headache/Pain Mild Scale (1-3) Last Admin: 05/17/24 10:17 Dose: 650 mg Al Hydroxide/Mg Hydroxide (Magnesium Hydrox/Alum Hydrox 30 Ml Oral.Susp) 30 ml PO Q6H PRN PRN Reason: Heartburn/Nausea Benztropine Mesylate (Benztropine Mesylate 0.5 Mg Tablet) 0.25 mg PO BID [facility] Last Admin: 06/03/24 08:33 Dose: 0.25 mg Docusate Sodium (Docusate Sodium 100 Mg Capsule) 100 mg PO BID [facility] Last Admin: 06/03/24 08:32 Dose: 100 mg Gabapentin (Gabapentin 300 Mg Capsule) 600 mg PO BEDTIME [facility] Last Admin: 06/02/24 20:18 Dose: 600 mg Hydroxyzine HCl (Hydroxyzine Hcl 25 Mg Tablet) 25 mg PO Q6H PRN PRN Reason: Anxiety Last Admin: 06/02/24 20:18 Dose: 25 mg Magnesium Hydroxide (Milk Of Magnesia 30 Ml Oral.Susp) 30 ml PO DAILY PRN PRN Reason: Constipation Multi-Ingred Cream/Lotion/Oil/Oint (Mineral Oil/Petrolatum,White 106 Gm Tube) 1 appl TOPICAL BID [facility]; Protocol Last Admin: 06/03/24 08:44 Dose: Not Given Naloxone HCl (Naloxone Hcl 0.4 Mg/Ml Vial) 0.04 mg IVPUSH Q5M PRN PRN Reason: Excessive sedation or RR < 8 Olanzapine (Olanzapine 5 Mg Tablet) 5 mg PO TID PRN PRN Reason: agitation Last Admin: 06/02/24 22:23 Dose: 5 mg Omeprazole (Omeprazole 20 Mg Capsule.Dr) 20 mg PO BID [facility] Last Admin: 06/03/24 08:32 Dose: 20 mg Paliperidone (Paliperidone Er 6 Mg Tab.Er.24) 6 mg PO DAILY [facility] Last Admin: 06/03/24 08:33 Dose: 6 mg Paliperidone Palmitate (Paliperidone Palmitate 234 Mg/1.5 Ml Syringe) 234 mg IM Q30D [facility] Trazodone HCl (Trazodone Hcl 50 Mg Tablet) 50 mg PO BEDTIME MRX1 PRN PRN Reason: Insomnia Last Admin: 06/02/24 22:22 Dose: 50 mg Zolpidem Tartrate (Zolpidem Tartrate 5 Mg Tablet) 5 mg PO BEDTIME [facility] Last Admin: 06/02/24 20:18 Dose: 5 mg Allergies Allergies Allergy/AdvReac Type Severity Reaction Status Date / Time bee pollen Allergy Severe Anaphylaxis Verified 04/24/24 15:03 levofloxacin [From Levaquin] Allergy Severe Itching Verified 04/24/24 15:03 enoxaparin [From Lovenox] Allergy Intermediate Rash Verified 04/24/24 15:03 Seasonal Allergies Allergy Mild Runny Nose Verified 04/24/24 15:03 venlafaxine [From Effexor] Allergy Mild Constipatio Verified 04/24/24 15:03 n Penicillins Allergy Unknown Unknown Verified 04/24/24 15:03 Assessment & Plan Assessment & Plan (1) Schizoaffective disorder: Status: Acute Code(s): F25.9 - Schizoaffective disorder, unspecified Plan The patient is an elderly female with a past history of bipolar disorder and alcohol use disorder who was in this facility a few weeks ago the respond very well with ECT but she did not compliant with continuation of care. She relapsed and was readmitted. At this moment she is very depressed with suicidal ideation and severe psychomotor retardation. She agreed to restart ECT. Plan 05/08 continue tx. plan to d/c vraylar and keep latuda. continue ECT 05/09 continue tx 05/10 continue tx. 05/12 pt has become manic, paranoid, telling staff that they are trying to poison her and refusing medication.Paranoid thinking that staff is trying to harm her or someone is trying to kill her dog; Prior to this, patient consented to ECT. Today, however, she refused and tried to elope from PACU. Pt saying she does need or want ECT or medication...she says why are you doing this to me? but won't accept discussion of her depression and now lucrecia. 05/13 pt remains disorganized; trying to elope; says she does not want ect or medication. patient has affirmed HCP, her sister Jennifer, affirmed by probate court. Signals Collector/Analyst contacted HCP with nurse present (Luba Salomon) who consents to ECT even if pt refuses; also consents to antipsychotic at writers disscretion including IM -Received Invega Sustenna 234mg; restarted since she was on this last admission; will dc vraylar and lutuda as neither proved effective (f/u loading dose to follow) 05/14 pt did received ECT today without incident; on unit, pt tried to elope; would not discuss with senior technical writer 05/15 pt a little more calm today. Says she is ok to which senior technical writer shared that it seems ECT is helping. Pt asked if this was so and senior technical writer again affirmed. 05/16 pt says she is feeling normal... and not depressed..in between. senior technical writer again affirmed that ECT seems to be helping and she did not disagree....still without much insight. 05/19 continue ECT tx. She had ECT today. 05/20 continue tx. 05/22 continue tx 05/23 continue same treatment 05/24/24- s/p ECT now getting initial trial of invega (new med) and will be working on discharge plan to prevent rapid decompensation on discharge- 05/25/24 continues discharge planning, suggest check cognition with OT before dc- 05/26 continue same treatment 05/27 continue same treatment 05/27 continue same treatment 05/29/2024 Patient tolerating ECT does seem cognitively dulled will see how patient does without ECT over the next few days. Post ECT cognitive slowing versus residual symptoms. Continue plan of care Invega started Plan 1. Continue same treatment. 2. ECT hold for today we will reassess for Sunday. She already have 10 sessions and her mood has improved ECT treatment finished. Reason for continued inpatient stay Substantial Risk for: inability to function, rapid decompensation and med/psych decompensation Time Spent With Patient Time: Total time managing care of this patient today _20___ minutes.
[2024-06-03 20:00] VITALS: BP 112/55; PULSE 82; RESP 16; TEMP 36.9; O2SAT 97
[2024-06-03] MEDS: hydrOXYzine HCL 25 MG TABLET PO (21:27)
[2024-06-03] MEDS: Gabapentin 300 MG CAPSULE 600 MG PO (21:27)
[2024-06-03] MEDS: Zolpidem Tartrate 5 MG TABLET PO (21:27)
[2024-06-03] MEDS: traZODone HCL 50 MG TABLET PO (21:32)
[2024-06-04 08:00] VITALS: BP 132/82; PULSE 72; RESP 18; TEMP 36.7; O2SAT 99
[2024-06-04] MEDS: Benztropine Mesylate 0.5 MG TABLET 0.25 MG PO ×2 (08:11→20:23)
[2024-06-04] MEDS: Omeprazole 20 MG CAPSULE.DR PO ×2 (08:12→20:23)
[2024-06-04] MEDS: Docusate Sodium 100 MG CAPSULE PO ×2 (08:12→20:22)
[2024-06-04] MEDS: Paliperidone ER 6 MG TAB.ER.24 PO (08:12)
[2024-06-04] MEDS: Mineral Oil/Petrolatum,White 106 GM Tube 1 APPL TOPICAL (08:21)
--- NOTE | 2024-06-04 13:54 | HO.PSYCHPN ---
Subjective Subjective Date of Service: 06/04/24 Reason For Visit: SI Subjective Notes: Conditional Voluntary Interim History: The nursing staff reported the patient showed brighter affect, she had been more engageable and slept well last night. On interview the patient denies new symptoms she was asking for discharge. We discussed options and she agreed that not to continue ECT. Mental Status Exam Mental Status Exam Patient Appearance: Appropriate Patient Orientation: Person and Situation Level of Consciousness: Awake and Appropriate Patient Behavior: Guarded and Passive Mood Description: Withdrawn Affect Description: Constricted Patient Cognition Impaired: Yes Ability to Follow Directions: Good Speech Pattern: Clear Hallucinations: None Delusions: Ideas of Reference Thought Process: Distracted and Slowed Thinking Thought Content: positive for [place] and positive for Poverty of Content Judgement: Fair Diagnostics Vital Signs (24Hr): Vital Signs - 24 hr 06/03/24 20:00 06/04/24 08:00 Temperature 98.5 F 98.1 F Pulse Rate 82 72 Respiratory Rate 16 18 Blood Pressure 112/55 L 132/82 Pulse Oximetry 97 99 Oxygen Delivery Method Room Air Room Air BMI result Body Mass Index 23.8 Labs 05/29/24 07:38 05/29/24 07:38 Medications Medications Current Medications Acetaminophen (Acetaminophen 325 Mg Tablet) 650 mg PO Q6H PRN PRN Reason: Headache/Pain Mild Scale (1-3) Last Admin: 05/17/24 10:17 Dose: 650 mg Al Hydroxide/Mg Hydroxide (Magnesium Hydrox/Alum Hydrox 30 Ml Oral.Susp) 30 ml PO Q6H PRN PRN Reason: Heartburn/Nausea Benztropine Mesylate (Benztropine Mesylate 0.5 Mg Tablet) 0.25 mg PO BID [facility] Last Admin: 06/04/24 08:11 Dose: 0.25 mg Docusate Sodium (Docusate Sodium 100 Mg Capsule) 100 mg PO BID [facility] Last Admin: 06/04/24 08:12 Dose: 100 mg Gabapentin (Gabapentin 300 Mg Capsule) 600 mg PO BEDTIME [facility] Last Admin: 06/03/24 21:27 Dose: 600 mg Hydroxyzine HCl (Hydroxyzine Hcl 25 Mg Tablet) 25 mg PO Q6H PRN PRN Reason: Anxiety Last Admin: 06/03/24 21:27 Dose: 25 mg Magnesium Hydroxide (Milk Of Magnesia 30 Ml Oral.Susp) 30 ml PO DAILY PRN PRN Reason: Constipation Multi-Ingred Cream/Lotion/Oil/Oint (Mineral Oil/Petrolatum,White 106 Gm Tube) 1 appl TOPICAL BID [facility]; Protocol Last Admin: 06/04/24 08:21 Dose: 1 appl Naloxone HCl (Naloxone Hcl 0.4 Mg/Ml Vial) 0.04 mg IVPUSH Q5M PRN PRN Reason: Excessive sedation or RR < 8 Olanzapine (Olanzapine 5 Mg Tablet) 5 mg PO TID PRN PRN Reason: agitation Last Admin: 06/02/24 22:23 Dose: 5 mg Omeprazole (Omeprazole 20 Mg Capsule.Dr) 20 mg PO BID [facility] Last Admin: 06/04/24 08:12 Dose: 20 mg Paliperidone (Paliperidone Er 6 Mg Tab.Er.24) 6 mg PO DAILY [facility] Last Admin: 06/04/24 08:12 Dose: 6 mg Paliperidone Palmitate (Paliperidone Palmitate 234 Mg/1.5 Ml Syringe) 234 mg IM Q30D [facility] Trazodone HCl (Trazodone Hcl 50 Mg Tablet) 50 mg PO BEDTIME MRX1 PRN PRN Reason: Insomnia Last Admin: 06/03/24 21:32 Dose: 50 mg Zolpidem Tartrate (Zolpidem Tartrate 5 Mg Tablet) 5 mg PO BEDTIME [facility] Last Admin: 06/03/24 21:27 Dose: 5 mg Allergies Allergies Allergy/AdvReac Type Severity Reaction Status Date / Time bee pollen Allergy Severe Anaphylaxis Verified 04/24/24 15:03 levofloxacin [From Levaquin] Allergy Severe Itching Verified 04/24/24 15:03 enoxaparin [From Lovenox] Allergy Intermediate Rash Verified 04/24/24 15:03 Seasonal Allergies Allergy Mild Runny Nose Verified 04/24/24 15:03 venlafaxine [From Effexor] Allergy Mild Constipatio Verified 04/24/24 15:03 n Penicillins Allergy Unknown Unknown Verified 04/24/24 15:03 Assessment & Plan Assessment & Plan (1) Schizoaffective disorder: Status: Acute Code(s): F25.9 - Schizoaffective disorder, unspecified Plan The patient is an elderly female with a past history of bipolar disorder and alcohol use disorder who was in this facility a few weeks ago the respond very well with ECT but she did not compliant with continuation of care. She relapsed and was readmitted. At this moment she is very depressed with suicidal ideation and severe psychomotor retardation. She agreed to restart ECT. Plan 05/08 continue tx. plan to d/c vraylar and keep latuda. continue ECT 05/09 continue tx 05/10 continue tx. 05/12 pt has become manic, paranoid, telling staff that they are trying to poison her and refusing medication.Paranoid thinking that staff is trying to harm her or someone is trying to kill her dog; Prior to this, patient consented to ECT. Today, however, she refused and tried to elope from PACU. Pt saying she does need or want ECT or medication...she says why are you doing this to me? but won't accept discussion of her depression and now lucrecia. 05/13 pt remains disorganized; trying to elope; says she does not want ect or medication. patient has affirmed HCP, her sister Jennifer, affirmed by probate court. Applied Computer Science Professor contacted HCP with nurse present (Luba Salomon) who consents to ECT even if pt refuses; also consents to antipsychotic at writers disscretion including IM -Received Invega Sustenna 234mg; restarted since she was on this last admission; will dc vraylar and lutuda as neither proved effective (f/u loading dose to follow) 05/14 pt did received ECT today without incident; on unit, pt tried to elope; would not discuss with senior technical writer 05/15 pt a little more calm today. Says she is ok to which senior technical writer shared that it seems ECT is helping. Pt asked if this was so and senior technical writer again affirmed. 05/16 pt says she is feeling normal... and not depressed..in between. senior technical writer again affirmed that ECT seems to be helping and she did not disagree....still without much insight. 05/19 continue ECT tx. She had ECT today. 05/20 continue tx. 05/22 continue tx 05/23 continue same treatment 05/24/24- s/p ECT now getting initial trial of invega (new med) and will be working on discharge plan to prevent rapid decompensation on discharge- 05/25/24 continues discharge planning, suggest check cognition with OT before dc- 05/26 continue same treatment 05/27 continue same treatment 05/27 continue same treatment 05/29/2024 Patient tolerating ECT does seem cognitively dulled will see how patient does without ECT over the next few days. Post ECT cognitive slowing versus residual symptoms. Continue plan of care Invega started Plan 1. Continue same treatment. 2. ECT hold for today we will reassess for Sunday. She already have 10 sessions and her mood has improved ECT treatment finished. Reason for continued inpatient stay Substantial Risk for: inability to function, rapid decompensation and med/psych decompensation Time Spent With Patient Time: Total time managing care of this patient today __20__ minutes.
[2024-06-04] MEDS: hydrOXYzine HCL 25 MG TABLET PO (15:55)
[2024-06-04 20:00] VITALS: BP 127/74; PULSE 84; RESP 16; TEMP 36.3; O2SAT 94
[2024-06-04] MEDS: Zolpidem Tartrate 5 MG TABLET PO (20:22)
[2024-06-04] MEDS: Gabapentin 300 MG CAPSULE 600 MG PO (20:23)
[2024-06-04] MEDS: traZODone HCL 50 MG TABLET PO (20:44)
[2024-06-05 07:00] VITALS: BMI 24.2
[2024-06-05 08:00] VITALS: BP 113/58; PULSE 102; RESP 18; TEMP 36.8; O2SAT 95
[2024-06-05] MEDS: Omeprazole 20 MG CAPSULE.DR PO ×2 (08:29→20:35)
[2024-06-05] MEDS: Benztropine Mesylate 0.5 MG TABLET 0.25 MG PO ×2 (08:30→20:36)
[2024-06-05] MEDS: Paliperidone ER 6 MG TAB.ER.24 PO (08:30)
[2024-06-05] MEDS: Docusate Sodium 100 MG CAPSULE PO ×2 (08:30→20:35)
[2024-06-05] MEDS: hydrOXYzine HCL 25 MG TABLET PO (10:36)
--- NOTE | 2024-06-05 14:20 | P.PNPSI_ITS ---
Subjective Subjective Date of Service: 06/05/24 Reason For Visit: SI Subjective Notes: Conditional Voluntary Healthcare Proxy: Yes Interim History: The nursing staff reported the patient had being attending to groups tearful at times after she found out that she is going to assisted living facility that she does not want to go. On interview I explained her that her sister is the affirmed healthcare proxy she is taking decisions for her. No changes in mental status she already finished her ECT treatment. Mental Status Exam Mental Status Exam Patient Appearance: Appropriate Patient Orientation: Person and Situation Level of Consciousness: Awake and Appropriate Patient Behavior: Guarded and Passive Mood Description: Withdrawn Affect Description: Constricted Patient Cognition Impaired: Yes Ability to Follow Directions: Good Speech Pattern: Clear Hallucinations: None Delusions: Ideas of Reference Thought Process: Distracted and Slowed Thinking Thought Content: positive for [place] and positive for Poverty of Content Judgement: Fair Diagnostics Vital Signs (24Hr): Vital Signs - 24 hr 06/04/24 20:00 06/05/24 08:00 Temperature 97.4 F 98.3 F Pulse Rate 84 102 H Respiratory Rate 16 18 Blood Pressure 127/74 113/58 L Pulse Oximetry 94 95 Oxygen Delivery Method Room Air Room Air BMI result Body Mass Index 23.8 Labs 05/29/24 07:38 05/29/24 07:38 Medications Medications Current Medications Acetaminophen (Acetaminophen 325 Mg Tablet) 650 mg PO Q6H PRN PRN Reason: Headache/Pain Mild Scale (1-3) Last Admin: 05/17/24 10:17 Dose: 650 mg Al Hydroxide/Mg Hydroxide (Magnesium Hydrox/Alum Hydrox 30 Ml Oral.Susp) 30 ml PO Q6H PRN PRN Reason: Heartburn/Nausea Benztropine Mesylate (Benztropine Mesylate 0.5 Mg Tablet) 0.25 mg PO BID [facility] Last Admin: 06/05/24 08:30 Dose: 0.25 mg Docusate Sodium (Docusate Sodium 100 Mg Capsule) 100 mg PO BID [facility] Last Admin: 06/05/24 08:30 Dose: 100 mg Gabapentin (Gabapentin 300 Mg Capsule) 600 mg PO BEDTIME [facility] Last Admin: 06/04/24 20:23 Dose: 600 mg Hydroxyzine HCl (Hydroxyzine Hcl 25 Mg Tablet) 25 mg PO Q6H PRN PRN Reason: Anxiety Last Admin: 06/05/24 10:36 Dose: 25 mg Magnesium Hydroxide (Milk Of Magnesia 30 Ml Oral.Susp) 30 ml PO DAILY PRN PRN Reason: Constipation Multi-Ingred Cream/Lotion/Oil/Oint (Mineral Oil/Petrolatum,White 106 Gm Tube) 1 appl TOPICAL BID [facility]; Protocol Last Admin: 06/05/24 10:02 Dose: Not Given Naloxone HCl (Naloxone Hcl 0.4 Mg/Ml Vial) 0.04 mg IVPUSH Q5M PRN PRN Reason: Excessive sedation or RR < 8 Olanzapine (Olanzapine 5 Mg Tablet) 5 mg PO TID PRN PRN Reason: agitation Last Admin: 06/02/24 22:23 Dose: 5 mg Omeprazole (Omeprazole 20 Mg Capsule.Dr) 20 mg PO BID [facility] Last Admin: 06/05/24 08:29 Dose: 20 mg Paliperidone (Paliperidone Er 6 Mg Tab.Er.24) 6 mg PO DAILY [facility] Last Admin: 06/05/24 08:30 Dose: 6 mg Paliperidone Palmitate (Paliperidone Palmitate 234 Mg/1.5 Ml Syringe) 234 mg IM Q30D [facility] Trazodone HCl (Trazodone Hcl 50 Mg Tablet) 50 mg PO BEDTIME MRX1 PRN PRN Reason: Insomnia Last Admin: 06/04/24 20:44 Dose: 50 mg Zolpidem Tartrate (Zolpidem Tartrate 5 Mg Tablet) 5 mg PO BEDTIME [facility] Last Admin: 06/04/24 20:22 Dose: 5 mg Allergies Allergies Allergy/AdvReac Type Severity Reaction Status Date / Time bee pollen Allergy Severe Anaphylaxis Verified 04/24/24 15:03 levofloxacin [From Levaquin] Allergy Severe Itching Verified 04/24/24 15:03 enoxaparin [From Lovenox] Allergy Intermediate Rash Verified 04/24/24 15:03 Seasonal Allergies Allergy Mild Runny Nose Verified 04/24/24 15:03 venlafaxine [From Effexor] Allergy Mild Constipatio Verified 04/24/24 15:03 n Penicillins Allergy Unknown Unknown Verified 04/24/24 15:03 Assessment & Plan Assessment & Plan (1) Schizoaffective disorder: Status: Acute Code(s): F25.9 - Schizoaffective disorder, unspecified Plan The patient is an elderly female with a past history of bipolar disorder and alcohol use disorder who was in this facility a few weeks ago the respond very well with ECT but she did not compliant with continuation of care. She relapsed and was readmitted. At this moment she is very depressed with suicidal ideation and severe psychomotor retardation. She agreed to restart ECT. Plan 05/08 continue tx. plan to d/c vraylar and keep latuda. continue ECT 05/09 continue tx 05/10 continue tx. 05/12 pt has become manic, paranoid, telling staff that they are trying to poison her and refusing medication.Paranoid thinking that staff is trying to harm her or someone is trying to kill her dog; Prior to this, patient consented to ECT. Today, however, she refused and tried to elope from PACU. Pt saying she does need or want ECT or medication...she says why are you doing this to me? but won't accept discussion of her depression and now lucrecia. 05/13 pt remains disorganized; trying to elope; says she does not want ect or medication. patient has affirmed HCP, her sister Jennifer, affirmed by probate court. Lidder contacted HCP with nurse present (Luba Salomon) who consents to ECT even if pt refuses; also consents to antipsychotic at writers disscretion including IM -Received Invega Sustenna 234mg; restarted since she was on this last admission; will dc vraylar and lutuda as neither proved effective (f/u loading dose to follow) 05/14 pt did received ECT today without incident; on unit, pt tried to elope; would not discuss with ghost writer 05/15 pt a little more calm today. Says she is ok to which ghost writer shared that it seems ECT is helping. Pt asked if this was so and ghost writer again affirmed. 05/16 pt says she is feeling normal... and not depressed..in between. ghost writer again affirmed that ECT seems to be helping and she did not disagree....still without much insight. 05/19 continue ECT tx. She had ECT today. 05/20 continue tx. 05/22 continue tx 05/23 continue same treatment 05/24/24- s/p ECT now getting initial trial of invega (new med) and will be working on discharge plan to prevent rapid decompensation on discharge- 05/25/24 continues discharge planning, suggest check cognition with OT before dc- 05/26 continue same treatment 05/27 continue same treatment 05/27 continue same treatment 05/29/2024 Patient tolerating ECT does seem cognitively dulled will see how patient does without ECT over the next few days. Post ECT cognitive slowing versus residual symptoms. Continue plan of care Invega started Plan 1. Continue same treatment. 2. ECT hold for today we will reassess for Sunday. She already have 10 sessions and her mood has improved ECT treatment finished. 3. Start discharge planning Reason for continued inpatient stay Substantial Risk for: inability to function, rapid decompensation and med/psych decompensation Time Spent With Patient Time: Total time managing care of this patient today __20__ minutes.
[2024-06-05 20:00] VITALS: BP 131/60; PULSE 81; RESP 16; TEMP 36.1; O2SAT 96
[2024-06-05] MEDS: Gabapentin 300 MG CAPSULE 600 MG PO (20:35)
[2024-06-05] MEDS: Zolpidem Tartrate 5 MG TABLET PO (20:35)
[2024-06-06 07:53] VITALS: BP 124/70; PULSE 80; RESP 16; TEMP 36.4; O2SAT 97
[2024-06-06] MEDS: Docusate Sodium 100 MG CAPSULE PO ×2 (07:55→20:25)
[2024-06-06] MEDS: Omeprazole 20 MG CAPSULE.DR PO ×2 (07:55→20:25)
[2024-06-06] MEDS: Paliperidone ER 6 MG TAB.ER.24 PO (07:55)
[2024-06-06] MEDS: Mineral Oil/Petrolatum,White 106 GM Tube 1 APPL TOPICAL (07:56)
[2024-06-06] MEDS: Benztropine Mesylate 0.5 MG TABLET 0.25 MG PO ×2 (07:56→20:26)
--- NOTE | 2024-06-06 08:25 | P.PNPSI_ITS ---
Subjective Subjective Date of Service: 06/06/24 Reason For Visit: SI Subjective Notes: Conditional Voluntary Healthcare Proxy: Yes (Affirmed healthcare proxy) Interim History: The nursing staff reported the patient had been compliant with treatment, no evidence of changes in her mental status. On interview the patient was reluctant to be discharged to assisted living facility but I explained her that whenever she goes back to her apartment she ended up being readmitted. No insight into her alcohol use disorder or any other mental illness. So far, the patient improved with ECT, she completed the course of ECT Mental Status Exam Mental Status Exam Patient Appearance: Appropriate Patient Orientation: Person and Situation Level of Consciousness: Awake and Appropriate Patient Behavior: Guarded and Passive Mood Description: Withdrawn Affect Description: Constricted Patient Cognition Impaired: Yes Ability to Follow Directions: Good Speech Pattern: Clear Hallucinations: None Delusions: Not Present Thought Process: Distracted and Slowed Thinking Thought Content: positive for [place] and positive for Poverty of Content Judgement: Poor Diagnostics Vital Signs (24Hr): Vital Signs - 24 hr 06/05/24 20:00 06/06/24 07:53 Temperature 97 F 97.5 F Pulse Rate 81 80 Respiratory Rate 16 16 Blood Pressure 131/60 124/70 Pulse Oximetry 96 97 Oxygen Delivery Method Room Air Room Air BMI result Body Mass Index 24.2 Labs 05/29/24 07:38 05/29/24 07:38 Medications Medications Current Medications Acetaminophen (Acetaminophen 325 Mg Tablet) 650 mg PO Q6H PRN PRN Reason: Headache/Pain Mild Scale (1-3) Last Admin: 05/17/24 10:17 Dose: 650 mg Al Hydroxide/Mg Hydroxide (Magnesium Hydrox/Alum Hydrox 30 Ml Oral.Susp) 30 ml PO Q6H PRN PRN Reason: Heartburn/Nausea Benztropine Mesylate (Benztropine Mesylate 0.5 Mg Tablet) 0.25 mg PO BID [facility] Last Admin: 06/06/24 07:56 Dose: 0.25 mg Docusate Sodium (Docusate Sodium 100 Mg Capsule) 100 mg PO BID [facility] Last Admin: 06/06/24 07:55 Dose: 100 mg Gabapentin (Gabapentin 300 Mg Capsule) 600 mg PO BEDTIME [facility] Last Admin: 06/05/24 20:35 Dose: 600 mg Hydroxyzine HCl (Hydroxyzine Hcl 25 Mg Tablet) 25 mg PO Q6H PRN PRN Reason: Anxiety Last Admin: 06/05/24 10:36 Dose: 25 mg Magnesium Hydroxide (Milk Of Magnesia 30 Ml Oral.Susp) 30 ml PO DAILY PRN PRN Reason: Constipation Multi-Ingred Cream/Lotion/Oil/Oint (Mineral Oil/Petrolatum,White 106 Gm Tube) 1 appl TOPICAL BID [facility]; Protocol Last Admin: 06/06/24 07:56 Dose: 1 appl Naloxone HCl (Naloxone Hcl 0.4 Mg/Ml Vial) 0.04 mg IVPUSH Q5M PRN PRN Reason: Excessive sedation or RR < 8 Olanzapine (Olanzapine 5 Mg Tablet) 5 mg PO TID PRN PRN Reason: agitation Last Admin: 06/02/24 22:23 Dose: 5 mg Omeprazole (Omeprazole 20 Mg Capsule.Dr) 20 mg PO BID [facility] Last Admin: 06/06/24 07:55 Dose: 20 mg Paliperidone (Paliperidone Er 6 Mg Tab.Er.24) 6 mg PO DAILY [facility] Last Admin: 06/06/24 07:55 Dose: 6 mg Paliperidone Palmitate (Paliperidone Palmitate 234 Mg/1.5 Ml Syringe) 234 mg IM Q30D [facility] Trazodone HCl (Trazodone Hcl 50 Mg Tablet) 50 mg PO BEDTIME MRX1 PRN PRN Reason: Insomnia Last Admin: 06/04/24 20:44 Dose: 50 mg Zolpidem Tartrate (Zolpidem Tartrate 5 Mg Tablet) 5 mg PO BEDTIME [facility] Last Admin: 06/05/24 20:35 Dose: 5 mg Allergies Allergies Allergy/AdvReac Type Severity Reaction Status Date / Time bee pollen Allergy Severe Anaphylaxis Verified 04/24/24 15:03 levofloxacin [From Levaquin] Allergy Severe Itching Verified 04/24/24 15:03 enoxaparin [From Lovenox] Allergy Intermediate Rash Verified 04/24/24 15:03 Seasonal Allergies Allergy Mild Runny Nose Verified 04/24/24 15:03 venlafaxine [From Effexor] Allergy Mild Constipatio Verified 04/24/24 15:03 n Penicillins Allergy Unknown Unknown Verified 04/24/24 15:03 Assessment & Plan Assessment & Plan (1) Schizoaffective disorder: Status: Acute Code(s): F25.9 - Schizoaffective disorder, unspecified Plan The patient is an elderly female with a past history of bipolar disorder and alcohol use disorder who was in this facility a few weeks ago the respond very well with ECT but she did not compliant with continuation of care. She relapsed and was readmitted. At this moment she is very depressed with suicidal ideation and severe psychomotor retardation. She agreed to restart ECT. Plan 05/08 continue tx. plan to d/c vraylar and keep latuda. continue ECT 05/09 continue tx 05/10 continue tx. 05/12 pt has become manic, paranoid, telling staff that they are trying to poison her and refusing medication.Paranoid thinking that staff is trying to harm her or someone is trying to kill her dog; Prior to this, patient consented to ECT. Today, however, she refused and tried to elope from PACU. Pt saying she does need or want ECT or medication...she says why are you doing this to me? but won't accept discussion of her depression and now lucrecia. 05/13 pt remains disorganized; trying to elope; says she does not want ect or medication. patient has affirmed HCP, her sister Jennifer, affirmed by probate court. Fuel Cell Systems Engineer contacted HCP with nurse present (Luba Salomon) who consents to ECT even if pt refuses; also consents to antipsychotic at writers disscretion including IM -Received Invega Sustenna 234mg; restarted since she was on this last admission; will dc vraylar and lutuda as neither proved effective (f/u loading dose to follow) 05/14 pt did received ECT today without incident; on unit, pt tried to elope; would not discuss with keno writer/runner 05/15 pt a little more calm today. Says she is ok to which keno writer/runner shared that it seems ECT is helping. Pt asked if this was so and keno writer/runner again affirmed. 05/16 pt says she is feeling normal... and not depressed..in between. keno writer/runner again affirmed that ECT seems to be helping and she did not disagree....still without much insight. 05/19 continue ECT tx. She had ECT today. 05/20 continue tx. 05/22 continue tx 05/23 continue same treatment 05/24/24- s/p ECT now getting initial trial of invega (new med) and will be working on discharge plan to prevent rapid decompensation on discharge- 05/25/24 continues discharge planning, suggest check cognition with OT before dc- 05/26 continue same treatment 05/27 continue same treatment 05/27 continue same treatment 05/29/2024 Patient tolerating ECT does seem cognitively dulled will see how patient does without ECT over the next few days. Post ECT cognitive slowing versus residual symptoms. Continue plan of care Invega started Plan 1. Continue same treatment. 2. ECT hold for today we will reassess for Sunday. She already have 10 sessions and her mood has improved ECT treatment finished. 3. Start discharge planning Reason for continued inpatient stay Substantial Risk for: inability to function, rapid decompensation and med/psych decompensation Time Spent With Patient Time: Total time managing care of this patient today __20__ minutes.
[2024-06-06] MEDS: hydrOXYzine HCL 25 MG TABLET PO (13:57)
[2024-06-06] MEDS: OLANZapine 5 MG TABLET PO ×2 (14:41→18:36)
[2024-06-06 20:00] VITALS: BP 136/68; PULSE 81; RESP 6; TEMP 36.8; O2SAT 96
[2024-06-06] MEDS: Zolpidem Tartrate 5 MG TABLET PO (20:25)
[2024-06-06] MEDS: Gabapentin 300 MG CAPSULE 600 MG PO (20:25)
[2024-06-06] MEDS: traZODone HCL 50 MG TABLET PO (23:53)
[2024-06-07 08:00] VITALS: BP 127/72; PULSE 96; RESP 18; TEMP 36.6; O2SAT 96
--- NOTE | 2024-06-07 08:03 | HO.PSYCHPN ---
Subjective Subjective Date of Service: 06/07/24 Reason For Visit: SI Subjective Notes: Conditional Voluntary Healthcare Proxy: Yes Interim History: The nursing staff reported the patient had been compliant with treatment, no evidence of changes in her mental status. Is concerned about discharge planning and hopeful she could return home. Have noted healthcare proxy and exploring assisted living. Patient reports that she is doing well. Happy regarding current medication regimen. Sleep energy and appetite good. Medication Compliance: Yes Side effects from medications: No Attending Groups: Yes Review of Systems Acute medical concerns: No Mental Status Exam Mental Status Exam Patient Appearance: Appropriate Patient Orientation: Person and Situation Level of Consciousness: Awake and Appropriate Patient Behavior: Passive Mood Description: Appropriate Affect Description: Constricted Patient Cognition Impaired: Yes Ability to Follow Directions: Good Speech Pattern: Clear Diagnostics Vital Signs (24Hr): Vital Signs - 24 hr 06/06/24 20:00 Temperature 98.2 F Pulse Rate 81 Respiratory Rate 6 L Blood Pressure 136/68 Pulse Oximetry 96 Oxygen Delivery Method Room Air BMI result Body Mass Index 24.2 Labs 05/29/24 07:38 05/29/24 07:38 Medications Medications Current Medications Acetaminophen (Acetaminophen 325 Mg Tablet) 650 mg PO Q6H PRN PRN Reason: Headache/Pain Mild Scale (1-3) Last Admin: 05/17/24 10:17 Dose: 650 mg Al Hydroxide/Mg Hydroxide (Magnesium Hydrox/Alum Hydrox 30 Ml Oral.Susp) 30 ml PO Q6H PRN PRN Reason: Heartburn/Nausea Benztropine Mesylate (Benztropine Mesylate 0.5 Mg Tablet) 0.25 mg PO BID [facility] Last Admin: 06/06/24 20:26 Dose: 0.25 mg Docusate Sodium (Docusate Sodium 100 Mg Capsule) 100 mg PO BID [facility] Last Admin: 06/06/24 20:25 Dose: 100 mg Gabapentin (Gabapentin 300 Mg Capsule) 600 mg PO BEDTIME [facility] Last Admin: 06/06/24 20:25 Dose: 600 mg Hydroxyzine HCl (Hydroxyzine Hcl 25 Mg Tablet) 25 mg PO Q6H PRN PRN Reason: Anxiety Last Admin: 06/06/24 13:57 Dose: 25 mg Magnesium Hydroxide (Milk Of Magnesia 30 Ml Oral.Susp) 30 ml PO DAILY PRN PRN Reason: Constipation Multi-Ingred Cream/Lotion/Oil/Oint (Mineral Oil/Petrolatum,White 106 Gm Tube) 1 appl TOPICAL BID [facility]; Protocol Last Admin: 06/06/24 20:28 Dose: Not Given Naloxone HCl (Naloxone Hcl 0.4 Mg/Ml Vial) 0.04 mg IVPUSH Q5M PRN PRN Reason: Excessive sedation or RR < 8 Olanzapine (Olanzapine 5 Mg Tablet) 5 mg PO TID PRN PRN Reason: agitation Last Admin: 06/06/24 18:36 Dose: 5 mg Omeprazole (Omeprazole 20 Mg Capsule.Dr) 20 mg PO BID [facility] Last Admin: 06/06/24 20:25 Dose: 20 mg Paliperidone (Paliperidone Er 6 Mg Tab.Er.24) 6 mg PO DAILY [facility] Last Admin: 06/06/24 07:55 Dose: 6 mg Paliperidone Palmitate (Paliperidone Palmitate 234 Mg/1.5 Ml Syringe) 234 mg IM Q30D [facility] Trazodone HCl (Trazodone Hcl 50 Mg Tablet) 50 mg PO BEDTIME MRX1 PRN PRN Reason: Insomnia Last Admin: 06/06/24 23:53 Dose: 50 mg Zolpidem Tartrate (Zolpidem Tartrate 5 Mg Tablet) 5 mg PO BEDTIME [facility] Last Admin: 06/06/24 20:25 Dose: 5 mg Allergies Allergies Allergy/AdvReac Type Severity Reaction Status Date / Time bee pollen Allergy Severe Anaphylaxis Verified 04/24/24 15:03 levofloxacin [From Levaquin] Allergy Severe Itching Verified 04/24/24 15:03 enoxaparin [From Lovenox] Allergy Intermediate Rash Verified 04/24/24 15:03 Seasonal Allergies Allergy Mild Runny Nose Verified 04/24/24 15:03 venlafaxine [From Effexor] Allergy Mild Constipatio Verified 04/24/24 15:03 n Penicillins Allergy Unknown Unknown Verified 04/24/24 15:03 Assessment & Plan Assessment & Plan (1) Schizoaffective disorder: Status: Acute Code(s): F25.9 - Schizoaffective disorder, unspecified Plan The patient is an elderly female with a past history of bipolar disorder and alcohol use disorder who was in this facility a few weeks ago the respond very well with ECT but she did not compliant with continuation of care. She relapsed and was readmitted. At this moment she is very depressed with suicidal ideation and severe psychomotor retardation. She agreed to restart ECT. Plan 05/08 continue tx. plan to d/c vraylar and keep latuda. continue ECT 05/09 continue tx 05/10 continue tx. 05/12 pt has become manic, paranoid, telling staff that they are trying to poison her and refusing medication.Paranoid thinking that staff is trying to harm her or someone is trying to kill her dog; Prior to this, patient consented to ECT. Today, however, she refused and tried to elope from PACU. Pt saying she does need or want ECT or medication...she says why are you doing this to me? but won't accept discussion of her depression and now lucrecia. 05/13 pt remains disorganized; trying to elope; says she does not want ect or medication. patient has affirmed HCP, her sister Jennifer, affirmed by probate court. Upholstery Estimator contacted HCP with nurse present (Luba Salomon) who consents to ECT even if pt refuses; also consents to antipsychotic at writers disscretion including IM -Received Invega Sustenna 234mg; restarted since she was on this last admission; will dc vraylar and lutuda as neither proved effective (f/u loading dose to follow) 05/14 pt did received ECT today without incident; on unit, pt tried to elope; would not discuss with technical publications writer 05/15 pt a little more calm today. Says she is ok to which technical publications writer shared that it seems ECT is helping. Pt asked if this was so and technical publications writer again affirmed. 05/16 pt says she is feeling normal... and not depressed..in between. technical publications writer again affirmed that ECT seems to be helping and she did not disagree....still without much insight. 05/19 continue ECT tx. She had ECT today. 05/20 continue tx. 05/22 continue tx 05/23 continue same treatment 05/24/24- s/p ECT now getting initial trial of invega (new med) and will be working on discharge plan to prevent rapid decompensation on discharge- 05/25/24 continues discharge planning, suggest check cognition with OT before dc- 05/26 continue same treatment 05/27 continue same treatment 05/27 continue same treatment 05/29/2024 Patient tolerating ECT does seem cognitively dulled will see how patient does without ECT over the next few days. Post ECT cognitive slowing versus residual symptoms. Continue plan of care [place] started 06/07/2024: Overall stable. Disposition planning on going and patient would be unable to care for self without appropriate safe discharge plan as evidence by history. Plan 1. Continue same treatment. 2. ECT hold for today we will reassess for Sunday. She already have 10 sessions and her mood has improved ECT treatment finished. 3. Start discharge planning Reason for continued inpatient stay Substantial Risk for: rapid decompensation Time Spent With Patient Time: Total time managing care of this patient today ____ minutes.
[2024-06-07] MEDS: Docusate Sodium 100 MG CAPSULE PO ×2 (08:16→19:55)
[2024-06-07] MEDS: Omeprazole 20 MG CAPSULE.DR PO ×2 (08:16→19:55)
[2024-06-07] MEDS: Benztropine Mesylate 0.5 MG TABLET 0.25 MG PO ×2 (08:16→19:56)
[2024-06-07] MEDS: Paliperidone ER 6 MG TAB.ER.24 PO (08:17)
[2024-06-07] MEDS: hydrOXYzine HCL 25 MG TABLET PO ×2 (09:33→15:42)
[2024-06-07] MEDS: Gabapentin 300 MG CAPSULE 600 MG PO (19:55)
[2024-06-07] MEDS: Zolpidem Tartrate 5 MG TABLET PO (19:56)
[2024-06-07 20:00] VITALS: BP 149/75; PULSE 88; RESP 16; TEMP 36.4; O2SAT 97
[2024-06-07] MEDS: traZODone HCL 50 MG TABLET PO (20:52)
[2024-06-08 08:00] VITALS: BP 128/68; PULSE 93; RESP 20; TEMP 36.6; O2SAT 95
[2024-06-08] MEDS: Paliperidone ER 6 MG TAB.ER.24 PO (08:27)
[2024-06-08] MEDS: Docusate Sodium 100 MG CAPSULE PO ×2 (08:27→20:31)
[2024-06-08] MEDS: Omeprazole 20 MG CAPSULE.DR PO ×2 (08:27→20:30)
[2024-06-08] MEDS: Benztropine Mesylate 0.5 MG TABLET 0.25 MG PO ×2 (08:28→20:31)
[2024-06-08] MEDS: Mineral Oil/Petrolatum,White 106 GM Tube 1 APPL TOPICAL (08:29)
--- NOTE | 2024-06-08 10:12 | P.PNPSI_ITS ---
Subjective Subjective Date of Service: 06/08/24 Reason For Visit: SI Subjective Notes: Conditional Voluntary Healthcare Proxy: Yes Interim History: No management issues. Remains concerned about discharge planning and hopeful she could return home. Have noted healthcare proxy and exploring assisted living and patient might contest/challenge HCP. Patient reports that she is doing well, feeling supported, no med concerns. Sleep energy and appetite good. No SI or HI Medication Compliance: Yes Side effects from medications: No Attending Groups: Yes Review of Systems Acute medical concerns: No Review of Systems Review of Systems unremarkable Mental Status Exam Mental Status Exam Patient Appearance: Appropriate Patient Orientation: Person and Situation Level of Consciousness: Awake and Appropriate Patient Behavior: Passive Mood Description: Appropriate Affect Description: Constricted Patient Cognition Impaired: Yes Ability to Follow Directions: Good Speech Pattern: Clear Diagnostics Vital Signs (24Hr): Vital Signs - 24 hr 06/07/24 20:00 06/08/24 08:00 Temperature 97.5 F 97.9 F Pulse Rate 88 93 Respiratory Rate 16 20 Blood Pressure 149/75 H 128/68 Pulse Oximetry 97 95 Oxygen Delivery Method Room Air Room Air BMI result Body Mass Index 24.2 Labs 05/29/24 07:38 05/29/24 07:38 Medications Medications Current Medications Acetaminophen (Acetaminophen 325 Mg Tablet) 650 mg PO Q6H PRN PRN Reason: Headache/Pain Mild Scale (1-3) Last Admin: 05/17/24 10:17 Dose: 650 mg Al Hydroxide/Mg Hydroxide (Magnesium Hydrox/Alum Hydrox 30 Ml Oral.Susp) 30 ml PO Q6H PRN PRN Reason: Heartburn/Nausea Benztropine Mesylate (Benztropine Mesylate 0.5 Mg Tablet) 0.25 mg PO BID [facility] Last Admin: 06/08/24 08:28 Dose: 0.25 mg Docusate Sodium (Docusate Sodium 100 Mg Capsule) 100 mg PO BID [facility] Last Admin: 06/08/24 08:27 Dose: 100 mg Gabapentin (Gabapentin 300 Mg Capsule) 600 mg PO BEDTIME [facility] Last Admin: 06/07/24 19:55 Dose: 600 mg Hydroxyzine HCl (Hydroxyzine Hcl 25 Mg Tablet) 25 mg PO Q6H PRN PRN Reason: Anxiety Last Admin: 06/07/24 15:42 Dose: 25 mg Magnesium Hydroxide (Milk Of Magnesia 30 Ml Oral.Susp) 30 ml PO DAILY PRN PRN Reason: Constipation Multi-Ingred Cream/Lotion/Oil/Oint (Mineral Oil/Petrolatum,White 106 Gm Tube) 1 appl TOPICAL BID [facility]; Protocol Last Admin: 06/08/24 08:29 Dose: 1 appl Naloxone HCl (Naloxone Hcl 0.4 Mg/Ml Vial) 0.04 mg IVPUSH Q5M PRN PRN Reason: Excessive sedation or RR < 8 Olanzapine (Olanzapine 5 Mg Tablet) 5 mg PO TID PRN PRN Reason: agitation Last Admin: 06/06/24 18:36 Dose: 5 mg Omeprazole (Omeprazole 20 Mg Capsule.Dr) 20 mg PO BID [facility] Last Admin: 06/08/24 08:27 Dose: 20 mg Paliperidone (Paliperidone Er 6 Mg Tab.Er.24) 6 mg PO DAILY [facility] Last Admin: 06/08/24 08:27 Dose: 6 mg Paliperidone Palmitate (Paliperidone Palmitate 234 Mg/1.5 Ml Syringe) 234 mg IM Q30D [facility] Trazodone HCl (Trazodone Hcl 50 Mg Tablet) 50 mg PO BEDTIME MRX1 PRN PRN Reason: Insomnia Last Admin: 06/07/24 20:52 Dose: 50 mg Zolpidem Tartrate (Zolpidem Tartrate 5 Mg Tablet) 5 mg PO BEDTIME [facility] Last Admin: 06/07/24 19:56 Dose: 5 mg Allergies Allergies Allergy/AdvReac Type Severity Reaction Status Date / Time bee pollen Allergy Severe Anaphylaxis Verified 04/24/24 15:03 levofloxacin [From Levaquin] Allergy Severe Itching Verified 04/24/24 15:03 enoxaparin [From Lovenox] Allergy Intermediate Rash Verified 04/24/24 15:03 Seasonal Allergies Allergy Mild Runny Nose Verified 04/24/24 15:03 venlafaxine [From Effexor] Allergy Mild Constipatio Verified 04/24/24 15:03 n Penicillins Allergy Unknown Unknown Verified 04/24/24 15:03 Assessment & Plan Assessment & Plan (1) Schizoaffective disorder: Status: Acute Code(s): F25.9 - Schizoaffective disorder, unspecified Plan The patient is an elderly female with a past history of bipolar disorder and alcohol use disorder who was in this facility a few weeks ago the respond very well with ECT but she did not compliant with continuation of care. She relapsed and was readmitted. At this moment she is very depressed with suicidal ideation and severe psychomotor retardation. She agreed to restart ECT. Plan 05/08 continue tx. plan to d/c vraylar and keep latuda. continue ECT 05/09 continue tx 05/10 continue tx. 05/12 pt has become manic, paranoid, telling staff that they are trying to poison her and refusing medication.Paranoid thinking that staff is trying to harm her or someone is trying to kill her dog; Prior to this, patient consented to ECT. Today, however, she refused and tried to elope from PACU. Pt saying she does need or want ECT or medication...she says why are you doing this to me? but won't accept discussion of her depression and now lucrecia. 05/13 pt remains disorganized; trying to elope; says she does not want ect or medication. patient has affirmed HCP, her sister Jennifer, affirmed by probate court. Bankruptcy Manager contacted HCP with nurse present (Luba Salomon) who consents to ECT even if pt refuses; also consents to antipsychotic at writers disscretion including IM -Received Invega Sustenna 234mg; restarted since she was on this last admission; will dc vraylar and lutuda as neither proved effective (f/u loading dose to follow) 05/14 pt did received ECT today without incident; on unit, pt tried to elope; would not discuss with typewriter tester 05/15 pt a little more calm today. Says she is ok to which typewriter tester shared that it seems ECT is helping. Pt asked if this was so and typewriter tester again affirmed. 05/16 pt says she is feeling normal... and not depressed..in between. typewriter tester again affirmed that ECT seems to be helping and she did not disagree....still without much insight. 05/19 continue ECT tx. She had ECT today. 05/20 continue tx. 05/22 continue tx 05/23 continue same treatment 05/24/24- s/p ECT now getting initial trial of invega (new med) and will be working on discharge plan to prevent rapid decompensation on discharge- 05/25/24 continues discharge planning, suggest check cognition with OT before dc- 05/26 continue same treatment 05/27 continue same treatment 05/27 continue same treatment 05/29/2024 Patient tolerating ECT does seem cognitively dulled will see how patient does without ECT over the next few days. Post ECT cognitive slowing versus residual symptoms. Continue plan of care Invega started 06/08/2024: Overall stable. Disposition planning on going and patient would be unable to care for self without appropriate safe discharge plan as evidence by history. Plan 1. Continue same treatment. 2. ECT hold for today we will reassess for Sunday. She already have 10 sessions and her mood has improved ECT treatment finished. 3. Start discharge planning Reason for continued inpatient stay Substantial Risk for: rapid decompensation Time Spent With Patient Time: Total time managing care of this patient today ____ minutes.
[2024-06-08] MEDS: Loratadine 10 MG TABLET PO (11:34)
[2024-06-08] MEDS: hydrOXYzine HCL 25 MG TABLET PO (13:11)
[2024-06-08 20:00] VITALS: BP 136/78; PULSE 93; RESP 18; TEMP 36.4; O2SAT 96
[2024-06-08] MEDS: Gabapentin 300 MG CAPSULE 600 MG PO (20:30)
[2024-06-08] MEDS: Zolpidem Tartrate 5 MG TABLET PO (20:30)
[2024-06-08] MEDS: traZODone HCL 50 MG TABLET PO (20:30)
[2024-06-09 08:00] VITALS: BP 121/79; PULSE 89; RESP 18; TEMP 36.1; O2SAT 96
[2024-06-09] MEDS: Benztropine Mesylate 0.5 MG TABLET 0.25 MG PO ×2 (08:20→20:23)
[2024-06-09] MEDS: Docusate Sodium 100 MG CAPSULE PO ×2 (08:21→20:24)
[2024-06-09] MEDS: Loratadine 10 MG TABLET PO (08:21)
[2024-06-09] MEDS: Paliperidone ER 6 MG TAB.ER.24 PO (08:21)
[2024-06-09] MEDS: Omeprazole 20 MG CAPSULE.DR PO ×2 (08:21→20:23)
[2024-06-09] MEDS: Mineral Oil/Petrolatum,White 106 GM Tube 1 APPL TOPICAL (08:24)
--- NOTE | 2024-06-09 11:04 | HO.PSYCHPN ---
Subjective Subjective Date of Service: 06/09/24 Reason For Visit: SI Subjective Notes: Conditional Voluntary Healthcare Proxy: Yes Interim History: The nursing staff reported the patient slept 8 hours. The aids social worker reported that [facility] but she does not want to go there, she wants to go back home. Apparently her family was telling her that this will be temporary but it is not true. On interview the patient denies adamantly new symptoms she wants to go back home, we will have a family meeting and explained that the family either have to take her back to go back home or discharged to self. At this moment there is no inpatient level of care criteria Mental Status Exam Mental Status Exam Patient Appearance: Appropriate Patient Orientation: Person and Situation Level of Consciousness: Awake and Appropriate Patient Behavior: Guarded and Passive Mood Description: Withdrawn Affect Description: Constricted Patient Cognition Impaired: Yes Ability to Follow Directions: Good Speech Pattern: Clear Hallucinations: None Delusions: Ideas of Reference Thought Process: Distracted and Slowed Thinking Thought Content: positive for [place] and positive for Poverty of Content Judgement: Fair Diagnostics Vital Signs (24Hr): Vital Signs - 24 hr 06/08/24 20:00 06/09/24 08:00 Temperature 97.5 F 97.0 F Pulse Rate 93 89 Respiratory Rate 18 18 Blood Pressure 136/78 121/79 Pulse Oximetry 96 96 Oxygen Delivery Method Room Air Room Air BMI result Body Mass Index 24.2 Labs 05/29/24 07:38 05/29/24 07:38 Medications Medications Current Medications Acetaminophen (Acetaminophen 325 Mg Tablet) 650 mg PO Q6H PRN PRN Reason: Headache/Pain Mild Scale (1-3) Last Admin: 05/17/24 10:17 Dose: 650 mg Al Hydroxide/Mg Hydroxide (Magnesium Hydrox/Alum Hydrox 30 Ml Oral.Susp) 30 ml PO Q6H PRN PRN Reason: Heartburn/Nausea Benztropine Mesylate (Benztropine Mesylate 0.5 Mg Tablet) 0.25 mg PO BID [facility] Last Admin: 06/09/24 08:20 Dose: 0.25 mg Docusate Sodium (Docusate Sodium 100 Mg Capsule) 100 mg PO BID [facility] Last Admin: 06/09/24 08:21 Dose: 100 mg Gabapentin (Gabapentin 300 Mg Capsule) 600 mg PO BEDTIME [facility] Last Admin: 06/08/24 20:30 Dose: 600 mg Hydroxyzine HCl (Hydroxyzine Hcl 25 Mg Tablet) 25 mg PO Q6H PRN PRN Reason: Anxiety Last Admin: 06/08/24 13:11 Dose: 25 mg Loratadine (Loratadine 10 Mg Tablet) 10 mg PO DAILY [facility] Last Admin: 06/09/24 08:21 Dose: 10 mg Magnesium Hydroxide (Milk Of Magnesia 30 Ml Oral.Susp) 30 ml PO DAILY PRN PRN Reason: Constipation Multi-Ingred Cream/Lotion/Oil/Oint (Mineral Oil/Petrolatum,White 106 Gm Tube) 1 appl TOPICAL BID [facility]; Protocol Last Admin: 06/09/24 08:24 Dose: 1 appl Naloxone HCl (Naloxone Hcl 0.4 Mg/Ml Vial) 0.04 mg IVPUSH Q5M PRN PRN Reason: Excessive sedation or RR < 8 Olanzapine (Olanzapine 5 Mg Tablet) 5 mg PO TID PRN PRN Reason: agitation Last Admin: 06/06/24 18:36 Dose: 5 mg Omeprazole (Omeprazole 20 Mg Capsule.Dr) 20 mg PO BID [facility] Last Admin: 06/09/24 08:21 Dose: 20 mg Paliperidone (Paliperidone Er 6 Mg Tab.Er.24) 6 mg PO DAILY [facility] Last Admin: 06/09/24 08:21 Dose: 6 mg Paliperidone Palmitate (Paliperidone Palmitate 234 Mg/1.5 Ml Syringe) 234 mg IM Q30D [facility] Trazodone HCl (Trazodone Hcl 50 Mg Tablet) 50 mg PO BEDTIME MRX1 PRN PRN Reason: Insomnia Last Admin: 06/08/24 20:30 Dose: 50 mg Zolpidem Tartrate (Zolpidem Tartrate 5 Mg Tablet) 5 mg PO BEDTIME [facility] Last Admin: 06/08/24 20:30 Dose: 5 mg Allergies Allergies Allergy/AdvReac Type Severity Reaction Status Date / Time bee pollen Allergy Severe Anaphylaxis Verified 04/24/24 15:03 levofloxacin [From Levaquin] Allergy Severe Itching Verified 04/24/24 15:03 enoxaparin [From Lovenox] Allergy Intermediate Rash Verified 04/24/24 15:03 Seasonal Allergies Allergy Mild Runny Nose Verified 04/24/24 15:03 venlafaxine [From Effexor] Allergy Mild Constipatio Verified 04/24/24 15:03 n Penicillins Allergy Unknown Unknown Verified 04/24/24 15:03 Assessment & Plan Assessment & Plan (1) Schizoaffective disorder: Status: Acute Code(s): F25.9 - Schizoaffective disorder, unspecified Plan The patient is an elderly female with a past history of bipolar disorder and alcohol use disorder who was in this facility a few weeks ago the respond very well with ECT but she did not compliant with continuation of care. She relapsed and was readmitted. At this moment she is very depressed with suicidal ideation and severe psychomotor retardation. She agreed to restart ECT. Plan 05/08 continue tx. plan to d/c vraylar and keep latuda. continue ECT 05/09 continue tx 05/10 continue tx. 05/12 pt has become manic, paranoid, telling staff that they are trying to poison her and refusing medication.Paranoid thinking that staff is trying to harm her or someone is trying to kill her dog; Prior to this, patient consented to ECT. Today, however, she refused and tried to elope from PACU. Pt saying she does need or want ECT or medication...she says why are you doing this to me? but won't accept discussion of her depression and now lucrecia. 05/13 pt remains disorganized; trying to elope; says she does not want ect or medication. patient has affirmed HCP, her sister Jennifer, affirmed by probate court. Court Manager contacted HCP with nurse present (Luba Salomon) who consents to ECT even if pt refuses; also consents to antipsychotic at writers disscretion including IM -Received Invega Sustenna 234mg; restarted since she was on this last admission; will dc vraylar and lutuda as neither proved effective (f/u loading dose to follow) 05/14 pt did received ECT today without incident; on unit, pt tried to elope; would not discuss with personal lines underwriter 05/15 pt a little more calm today. Says she is ok to which personal lines underwriter shared that it seems ECT is helping. Pt asked if this was so and personal lines underwriter again affirmed. 05/16 pt says she is feeling normal... and not depressed..in between. personal lines underwriter again affirmed that ECT seems to be helping and she did not disagree....still without much insight. 05/19 continue ECT tx. She had ECT today. 05/20 continue tx. 05/22 continue tx 05/23 continue same treatment 05/24/24- s/p ECT now getting initial trial of invega (new med) and will be working on discharge plan to prevent rapid decompensation on discharge- 05/25/24 continues discharge planning, suggest check cognition with OT before dc- 05/26 continue same treatment 05/27 continue same treatment 05/27 continue same treatment 05/29/2024 Patient tolerating ECT does seem cognitively dulled will see how patient does without ECT over the next few days. Post ECT cognitive slowing versus residual symptoms. Continue plan of care Invega started 06/08/2024: Overall stable. Disposition planning on going and patient would be unable to care for self without appropriate safe discharge plan as evidence by history. Plan 1. Continue same treatment. 2. ECT hold for today we will reassess for Sunday. She already have 10 sessions and her mood has improved ECT treatment finished. 3. Start discharge planning Reason for continued inpatient stay Substantial Risk for: inability to function, rapid decompensation and med/psych decompensation Time Spent With Patient Time: Total time managing care of this patient today __20__ minutes.
[2024-06-09 20:00] VITALS: BP 160/74; PULSE 88; RESP 16; TEMP 36.1; O2SAT 97
[2024-06-09] MEDS: Zolpidem Tartrate 5 MG TABLET PO (20:22)
[2024-06-09] MEDS: Gabapentin 300 MG CAPSULE 600 MG PO (20:23)
[2024-06-09] MEDS: traZODone HCL 50 MG TABLET PO ×2 (20:24→23:12)
[2024-06-10 07:55] VITALS: BP 125/61; PULSE 86; RESP 18; TEMP 36.9; O2SAT 96
[2024-06-10] MEDS: Loratadine 10 MG TABLET PO (07:59)
[2024-06-10] MEDS: Benztropine Mesylate 0.5 MG TABLET 0.25 MG PO ×2 (07:59→19:46)
[2024-06-10] MEDS: Docusate Sodium 100 MG CAPSULE PO ×2 (07:59→19:47)
[2024-06-10] MEDS: Paliperidone ER 6 MG TAB.ER.24 PO (08:00)
[2024-06-10] MEDS: Omeprazole 20 MG CAPSULE.DR PO ×2 (08:00→19:46)
--- NOTE | 2024-06-10 16:03 | P.PNPSI_ITS ---
Subjective Subjective Date of Service: 06/10/24 Reason For Visit: SI Subjective Notes: Conditional Voluntary Interim History: The nursing staff reported that discharge planning will be back to her home. The family came into an agreement with the patient. On interview the patient denies new symptoms she is happy to go back home no evidence of psychosis lucrecia or safety concerns at this point. Discharge tomorrow. Mental Status Exam Mental Status Exam Patient Appearance: Appropriate Patient Orientation: Person and Situation Level of Consciousness: Awake and Appropriate Patient Behavior: Guarded and Passive Mood Description: Withdrawn Affect Description: Calm and Constricted Patient Cognition Impaired: Yes Ability to Follow Directions: Good Speech Pattern: Clear Hallucinations: None Delusions: Not Present Thought Content: positive for [place] and positive for Poverty of Content Judgement: Fair Diagnostics Vital Signs (24Hr): Vital Signs - 24 hr 06/09/24 20:00 06/10/24 07:55 Temperature 97.0 F 98.4 F Pulse Rate 88 86 Respiratory Rate 16 18 Blood Pressure 160/74 H 125/61 Pulse Oximetry 97 96 Oxygen Delivery Method Room Air Room Air BMI result Body Mass Index 24.2 Labs 05/29/24 07:38 05/29/24 07:38 Medications Medications Current Medications Acetaminophen (Acetaminophen 325 Mg Tablet) 650 mg PO Q6H PRN PRN Reason: Headache/Pain Mild Scale (1-3) Last Admin: 05/17/24 10:17 Dose: 650 mg Al Hydroxide/Mg Hydroxide (Magnesium Hydrox/Alum Hydrox 30 Ml Oral.Susp) 30 ml PO Q6H PRN PRN Reason: Heartburn/Nausea Benztropine Mesylate (Benztropine Mesylate 0.5 Mg Tablet) 0.25 mg PO BID [facility] Last Admin: 06/10/24 07:59 Dose: 0.25 mg Docusate Sodium (Docusate Sodium 100 Mg Capsule) 100 mg PO BID [facility] Last Admin: 06/10/24 07:59 Dose: 100 mg Gabapentin (Gabapentin 300 Mg Capsule) 600 mg PO BEDTIME [facility] Last Admin: 06/09/24 20:23 Dose: 600 mg Hydroxyzine HCl (Hydroxyzine Hcl 25 Mg Tablet) 25 mg PO Q6H PRN PRN Reason: Anxiety Last Admin: 06/08/24 13:11 Dose: 25 mg Loratadine (Loratadine 10 Mg Tablet) 10 mg PO DAILY [facility] Last Admin: 06/10/24 07:59 Dose: 10 mg Magnesium Hydroxide (Milk Of Magnesia 30 Ml Oral.Susp) 30 ml PO DAILY PRN PRN Reason: Constipation Multi-Ingred Cream/Lotion/Oil/Oint (Mineral Oil/Petrolatum,White 106 Gm Tube) 1 appl TOPICAL BID [facility]; Protocol Last Admin: 06/10/24 08:00 Dose: Not Given Naloxone HCl (Naloxone Hcl 0.4 Mg/Ml Vial) 0.04 mg IVPUSH Q5M PRN PRN Reason: Excessive sedation or RR < 8 Olanzapine (Olanzapine 5 Mg Tablet) 5 mg PO TID PRN PRN Reason: agitation Last Admin: 06/06/24 18:36 Dose: 5 mg Omeprazole (Omeprazole 20 Mg Capsule.Dr) 20 mg PO BID [facility] Last Admin: 06/10/24 08:00 Dose: 20 mg Paliperidone (Paliperidone Er 6 Mg Tab.Er.24) 6 mg PO DAILY [facility] Last Admin: 06/10/24 08:00 Dose: 6 mg Paliperidone Palmitate (Paliperidone Palmitate 234 Mg/1.5 Ml Syringe) 234 mg IM Q30D [facility] Trazodone HCl (Trazodone Hcl 50 Mg Tablet) 50 mg PO BEDTIME MRX1 PRN PRN Reason: Insomnia Last Admin: 06/09/24 23:12 Dose: 50 mg Allergies Allergies Allergy/AdvReac Type Severity Reaction Status Date / Time bee pollen Allergy Severe Anaphylaxis Verified 04/24/24 15:03 levofloxacin [From Levaquin] Allergy Severe Itching Verified 04/24/24 15:03 enoxaparin [From Lovenox] Allergy Intermediate Rash Verified 04/24/24 15:03 Seasonal Allergies Allergy Mild Runny Nose Verified 04/24/24 15:03 venlafaxine [From Effexor] Allergy Mild Constipatio Verified 04/24/24 15:03 n Penicillins Allergy Unknown Unknown Verified 04/24/24 15:03 Assessment & Plan Assessment & Plan (1) Schizoaffective disorder: Status: Acute Code(s): F25.9 - Schizoaffective disorder, unspecified Plan The patient is an elderly female with a past history of bipolar disorder and alcohol use disorder who was in this facility a few weeks ago the respond very well with ECT but she did not compliant with continuation of care. She relapsed and was readmitted. At this moment she is very depressed with suicidal ideation and severe psychomotor retardation. She agreed to restart ECT. Plan 05/08 continue tx. plan to d/c vraylar and keep latuda. continue ECT 05/09 continue tx 05/10 continue tx. 05/12 pt has become manic, paranoid, telling staff that they are trying to poison her and refusing medication.Paranoid thinking that staff is trying to harm her or someone is trying to kill her dog; Prior to this, patient consented to ECT. Today, however, she refused and tried to elope from PACU. Pt saying she does need or want ECT or medication...she says why are you doing this to me? but won't accept discussion of her depression and now lucrecia. 05/13 pt remains disorganized; trying to elope; says she does not want ect or medication. patient has affirmed HCP, her sister Jennifer, affirmed by probate court. Back Wedger contacted HCP with nurse present (Luba Salomon) who consents to ECT even if pt refuses; also consents to antipsychotic at writers disscretion including IM -Received Invega Sustenna 234mg; restarted since she was on this last admission; will dc vraylar and lutuda as neither proved effective (f/u loading dose to follow) 05/14 pt did received ECT today without incident; on unit, pt tried to elope; would not discuss with fiction and nonfiction writer prose 05/15 pt a little more calm today. Says she is ok to which fiction and nonfiction writer prose shared that it seems ECT is helping. Pt asked if this was so and fiction and nonfiction writer prose again affirmed. 05/16 pt says she is feeling normal... and not depressed..in between. fiction and nonfiction writer prose again affirmed that ECT seems to be helping and she did not disagree....still without much insight. 05/19 continue ECT tx. She had ECT today. 05/20 continue tx. 05/22 continue tx 05/23 continue same treatment 05/24/24- s/p ECT now getting initial trial of invega (new med) and will be working on discharge plan to prevent rapid decompensation on discharge- 05/25/24 continues discharge planning, suggest check cognition with OT before dc- 05/26 continue same treatment 05/27 continue same treatment 05/27 continue same treatment 05/29/2024 Patient tolerating ECT does seem cognitively dulled will see how patient does without ECT over the next few days. Post ECT cognitive slowing versus residual symptoms. Continue plan of care Invega started 06/08/2024: Overall stable. Disposition planning on going and patient would be unable to care for self without appropriate safe discharge plan as evidence by history. Plan 1. Continue same treatment. 2. ECT hold for today we will reassess for Sunday. She already have 10 sessions and her mood has improved ECT treatment finished. 3. Start discharge planning Reason for continued inpatient stay Substantial Risk for: inability to function, rapid decompensation and med/psych decompensation Time Spent With Patient Time: Total time managing care of this patient today _20___ minutes.
[2024-06-10] MEDS: hydrOXYzine HCL 25 MG TABLET PO (19:46)
[2024-06-10] MEDS: Gabapentin 300 MG CAPSULE 600 MG PO (19:47)
[2024-06-10 20:00] VITALS: PULSE 79; RESP 16; TEMP 36.9; O2SAT 97
[2024-06-10] MEDS: traZODone HCL 50 MG TABLET PO (21:05)
[2024-06-11 07:55] VITALS: BP 117/72; PULSE 89; RESP 18; TEMP 36.1; O2SAT 95
[2024-06-11] MEDS: Loratadine 10 MG TABLET PO (08:04)
[2024-06-11] MEDS: Paliperidone ER 6 MG TAB.ER.24 PO (08:04)
[2024-06-11] MEDS: Benztropine Mesylate 0.5 MG TABLET 0.25 MG PO (08:04)
[2024-06-11] MEDS: Omeprazole 20 MG CAPSULE.DR PO (08:04)
[2024-06-11] MEDS: Docusate Sodium 100 MG CAPSULE PO (08:05)
--- NOTE | 2024-06-11 08:20 | P.DS_ITS ---
DS: Providers Provider Date of Service: 06/11/24 Date of admission: 04/25/24 09:53 Date of discharge: 06/11/24 Primary care physician: Theresa Nelson MD Attending physician on discharge: Javier Mccabe DS: Diagnosis Discharge Diagnosis (1) Schizoaffective disorder: Status: Acute DS: Medications Discharge Medications Home Medications: Home Medications ?Medication ?Instructions ?Recorded ?Confirmed mirtazapine 30 mg tablet 30 mg PO BEDTIME 04/24/24 04/24/24 omeprazole 20 mg capsule,delayed 20 mg PO DAILY@0630 04/25/24 04/25/24 release Previous Rx's ?Medication ?Instructions ?Recorded benztropine 0.5 mg tablet 0.25 mg (1/2 x 0.5 mg) PO BID 30 12/21/23 days #30 tabs gabapentin 300 mg capsule 600 mg (2 x 300 mg) PO BEDTIME 30 12/21/23 days #60 caps paliperidone palmitate 234 mg/1.5 234 mg (1.5 mL) IM Q30D 30 days 12/21/23 mL intramuscular syringe (Invega #1.5 mL Sustenna) cariprazine 3 mg capsule (Vraylar) 3 mg PO DAILY 30 days #30 caps 01/25/24 benztropine 0.5 mg tablet 0.25 mg (1/2 x 0.5 mg) PO BID 30 06/10/24 days #30 tabs docusate sodium 100 mg capsule 1 cap PO BID 30 days #60 caps 06/10/24 eszopiclone 3 mg tablet (Lunesta) 3 mg PO BEDTIME 30 days #30 tabs 06/10/24 gabapentin 300 mg capsule 600 mg (2 x 300 mg) PO BEDTIME 30 06/10/24 days #60 caps hydroxyzine HCl 25 mg tablet 25 mg PO Q6H PRN Anxiety 30 days 06/10/24 #60 tabs loratadine 10 mg tablet 10 mg PO DAILY 30 days #30 tabs 06/10/24 omeprazole 20 mg capsule,delayed 20 mg PO BID 30 days #60 caps 06/10/24 release paliperidone palmitate 234 mg/1.5 234 mg (1.5 mL) IM Q30D 30 days 06/10/24 mL intramuscular syringe (Invega #1.5 mL Sustenna) thiamine HCl (vitamin B1) 100 mg 100 mg PO BID 30 days #60 tabs 06/10/24 tablet (Vitamin B-1) trazodone 50 mg tablet 50 mg PO BEDTIME MRX1 PRN Insomnia 06/10/24 30 days #60 tabs white petrolatum-mineral oil 1 appl topical BID 30 days #5 grams 06/10/24 topical cream (Dermacerin topical cream) Mental Status Exam Mental Status Exam Patient Appearance: Appropriate Patient Orientation: Person and Situation Level of Consciousness: Awake and Appropriate Patient Behavior: Guarded and Passive Mood Description: Withdrawn Affect Description: Constricted Patient Cognition Impaired: Yes Ability to Follow Directions: Good Speech Pattern: Clear Hallucinations: None Delusions: Not Present Thought Process: Distracted and Slowed Thinking Thought Content: positive for [place] and positive for Circumstantial Judgement: Fair DS: Summary Hospital Course Hospital Course: The patient is a 68-year-old female, living in the community by herself, with a long history of bipolar disorder, alcohol use disorder and other medical comorbidities. The patient is very well known by this team since she had been admitted before and treated with ECT when she was depressed and catatonic. The patient was brought to the emergency room by her family since she was unable to take care herself, noncompliant and grossly manic and disorganized. The patient was assessed by the care team and transferring to this facility for continuation of care. Please see the HPI of the admission note for further details. On admission the patient was psychotic with manic symptoms. We restarted her re gular medications but eventually the patient developed a major depressive episode. Historically the patient responded very well with ECT so we decided to do ECT 10 sessions that resolved her depression. In a previous admission, her healthcare proxy was affirmed in court and her affirmed healthcare proxy took the decisions about her care. Aftercare was discussed with the family, we had several family meetings and the initial plan was to transfer her to an assisted living facility or rest home but the patient refused. She advocated to go back to her apartment. Eventually, the family agreed to send her back to her home with aftercare and ancillary services. Since there were no safety concerns discharge planning was discussed. Time spent discussing smoking cessation with patient: 3 to 10 minutes Status at Discharge Cognitive/behavioral status at discharge: Impaired mildly at baseline Functional status at discharge: independent ambulation Overall status at discharge: patient is back to baseline Time Spent with Patient Time attestation: Total time managing care of this patient today _30___ minutes. Time spent: Less than 30 minutes Discharge Plan Discharge Anticipated Discharge Date/Time: 06/11/24 11:00 Patient Disposition: Home, Self-Care Discharge Diagnosis: Bipolar disorder type 1 most recent episode mixed. Mild cognitive impairment. Referrals: [facility] [Other] - 3-5 Days (Your Dipper Machine Operator Maame Browning and [facility] clinician Clara blanc [facility] will contact you following discharge. Please be free to answer there call/ home visit if needed) [facility] [Other] - 1 Week Ly ([facility] Psychiatrist) [Other] - 06/19/24 1:00 pm (Ly will see you in person at the office on 06/19 at 1:00pm. If you prefer she can see you via telehealth and just need to call her to change the medium for the appointment.) [facility] [Other] - 1 Week (You have 13 hours of homemaking, 4 hours of companionship along with weekly laundry services. If there are any questions or concerns please feel free to reach out to your Shrimp Header Leigh at [phone]. ) Theresa Nelson MD [Primary Care Provider] - 06/17/24 10:00 am ( will see you in person at her office on 06/17 at 10:00 AM. Please call the number shown if you need to reschedule it for any reason.) Discharge Medications: New benztropine 0.5 mg Tablet 0.25 mg PO BID 30 Days Qty: 30 0RF trazodone 50 mg Tablet 50 mg PO BEDTIME MRX1 PRN (Reason: Insomnia) 30 Days Qty: 60 0RF gabapentin 300 mg Capsule 600 mg PO BEDTIME 30 Days Qty: 60 0RF hydroxyzine HCl 25 mg Tablet 25 mg PO Q6H PRN (Reason: Anxiety) 30 Days Qty: 60 0RF loratadine 10 mg Tablet 10 mg PO DAILY 30 Days Qty: 30 0RF Invega Sustenna 234 mg/1.5 mL Syringe 234 mg IM Q30D 30 Days Qty: 1.5 0RF omeprazole 20 mg Capsule,Delayed Release(Dr/Ec) 20 mg PO BID 30 Days Qty: 60 0RF Dermacerin Cream 1 appl topical BID 30 Days Qty: 5 0RF Protocol: Apply to: Apply to: face paliperidone [Invega] 9 mg tablet extended release 24 hr 9 mg PO DAILY Qty: 30 0RF Continued thiamine HCl (vitamin B1) [Vitamin B-1] 100 mg tablet 100 mg PO BID 30 Days Qty: 60 0RF docusate sodium 100 mg capsule 1 cap PO BID 30 Days Qty: 60 0RF eszopiclone [Lunesta] 3 mg tablet 3 mg PO BEDTIME 30 Days Qty: 30 0RF Discontinued mirtazapine 30 mg tablet 30 mg PO BEDTIME omeprazole 20 mg capsule,delayed release(DR/EC) 20 mg PO DAILY@0630 benztropine 0.5 mg Tablet 0.25 mg PO BID 30 Days Qty: 30 0RF gabapentin 300 mg Capsule 600 mg PO BEDTIME 30 Days Qty: 60 0RF Invega Sustenna 234 mg/1.5 mL Syringe 234 mg IM Q30D 30 Days Qty: 1.5 0RF Vraylar 3 mg Capsule 3 mg PO DAILY 30 Days Qty: 30 0RF Discharge Orders: Discharge Order (Routine); Ordered 06/11/24 Ordered By: Javier Mccabe Diet: Advance to usual diet Activity on Discharge: As tolerated Stand Alone Forms: Patient Portal Discharge page Print Language: Khmer Care Plan Goals: Care plan goals achieved in this admission Health Concerns: Continue with outpatient providers such as PCP and other outpatient specialist. Plan of Treatment: Continue treatment as an outpatient. Continue with ancillary services in the community. Assessment: The patient is an elderly female with a history of bipolar disorder and alcohol use disorder with other several medical comorbidities admitted for noncompliance of medications and treatment who decompensate and was brought back. While she was in the unit she had major depressive episode the resolved with ECT. At this moment the patient is ready to go back to the community since she is at baseline and she adamantly denies safety concerns.
== END 2024-06-11 16:30 | disposition home or self-care (01) | DRG 885 ==
LOC: HO.ED 04-25 11:32 → HO.PGERI 04-25 12:01
PROVIDERS: Physician Assistant; Psychiatry & Neurology Psychiatry; Admitting Provider Social Worker; Emergency Provider Emergency Medicine Emergency Medical Services; PCP Family Medicine; Visit Provider Social Worker
PROC: GZB4ZZZ Other Electroconvulsive Therapy (ICD-10-PCS; CPT 90870; principal; 2024-05-05 07:30)
DX: F31.60 Bipolar disorder, current episode mixed, unspecified (principal); R45.851 Suicidal ideations; K21.9 Gastro-esophageal reflux disease without esophagitis; Z86.718 Personal history of other venous thrombosis and embolism; Z79.899 Other long term (current) drug therapy
CPT/HCPCS: 36415; 80053; 80061; 80143; 80179; 80307; 81001; 82607; 83036; 84443; 85025; 90870; 93005; 99285; J0330; J0665; J1596; J1644; J1805; J2003; J2060; J2250; J2359; J2426; J2704; J2919; J7120; S9485

== ENCOUNTER → 2024-04-25 08:10 | Outpatient (BNV) | payer OTHER, SELFPAY | PROVIDERS: Admitting Provider Social Worker; Emergency Provider Emergency Medicine Emergency Medical Services; PCP Family Medicine; Visit Provider Internal Medicine Cardiovascular Disease | DX: I45.81 Long QT syndrome (principal) | CPT/HCPCS: 93010 ==

== ENCOUNTER → 2024-04-25 09:53 | Outpatient (BNV) | payer OTHER, SELFPAY | PROVIDERS: Admitting Provider Social Worker; Emergency Provider Emergency Medicine Emergency Medical Services; PCP Family Medicine; Visit Provider Psychiatry & Neurology Psychiatry | DX: F25.0 Schizoaffective disorder, bipolar type (principal) | CPT/HCPCS: 90792; 90870; 99231; 99232; 99499 ==

== ENCOUNTER → 2024-04-25 09:53 | Outpatient (BNV) | payer OTHER, SELFPAY | PROVIDERS: Admitting Provider Social Worker; Emergency Provider Emergency Medicine Emergency Medical Services; PCP Family Medicine; Visit Provider Physician Assistant | DX: Z01.818 Encounter for other preprocedural examination (principal) | CPT/HCPCS: 99221 ==

== ENCOUNTER → 2024-04-25 09:53 | Outpatient (BNV) | payer OTHER, SELFPAY | PROVIDERS: Admitting Provider Social Worker; Emergency Provider Emergency Medicine Emergency Medical Services; PCP Family Medicine; Visit Provider Psychiatry & Neurology Psychiatry | DX: F25.0 Schizoaffective disorder, bipolar type (principal) | CPT/HCPCS: 90870; 99231 ==

== ENCOUNTER 2025-03-03 17:05 | Emergency (ER) | payer OTHER, SELFPAY ==
--- NOTE | ~2025-03-03 | CT_ITS ---
CLINICAL HISTORY: Status change CT head without contrast Comparison: None available Findings: No acute hemorrhage. No extra-axial fluid collection. No hydrocephalus, mass-effect or herniation. Blunt-white differentiation is maintained. There is patchy hypoattenuation of the periventricular and deep white matter, which is most likely the sequela of moderate chronic small vessel ischemic disease. No acute orbital pathology. No acute soft tissue abnormality. No fracture. The visualized paranasal sinuses are predominantly clear. The mastoid air cells are clear. Impression: No acute findings. This document has been electronically signed by: Rashida Montano MD on 03/03/2025 18:14:40
--- NOTE | ~2025-03-03 | XR_ITS ---
CLINICAL HISTORY: Mental status change Chest Radiograph Comparison: None available Findings: No cardiomegaly. Normal mediastinal contours. No pneumothorax. No opacity. No pleural effusion. Normal upper abdomen. No acute fracture. Status post vertebral body kyphoplasty. Impression: No acute findings. This document has been electronically signed by: Rashida Montano MD on 03/03/2025 18:30:34
[2025-03-03 17:14] VITALS: BP 118/86; PULSE 95; O2SAT 97
[2025-03-03 17:18] VITALS: BP 135/82; PULSE 92; RESP 16; TEMP 37.1; O2SAT 97; BMI 20.7
--- NOTE | 2025-03-03 17:18 | ED.PSYCH ---
HPI - Psych General Chief Complaint: Altered Mental Status Stated Complaint: AMS, FL to thrive, bed all day non verbal unsual Time Seen by Provider: 03/03/25 17:13 Source: patient, EMS and old records reviewed Mode of arrival: EMS Limitations: altered mental status History of Present Illness ED Provider: DR. Vega HPI Narrative: This is a 69-year-old female brought in from [facility] under section 21 for evaluation of a change mental status and patient becoming catatonic. Patient with significant history of bipolar 1, OA, GERD, DVT, MDD, [facility] Patient is unable to give history the moment due to her catatonic status, but appear comfortable with no distress. Related Data Previous Rx's ?Medication ?Instructions ?Recorded benztropine 0.5 mg tablet 0.25 mg (1/2 x 0.5 mg) PO BID 30 06/10/24 days #30 tabs docusate sodium 100 mg capsule 1 cap PO BID 30 days #60 caps 06/10/24 eszopiclone 3 mg tablet (Lunesta) 3 mg PO BEDTIME 30 days #30 tabs 06/10/24 gabapentin 300 mg capsule 600 mg (2 x 300 mg) PO BEDTIME 30 06/10/24 days #60 caps hydroxyzine HCl 25 mg tablet 25 mg PO Q6H PRN Anxiety 30 days 06/10/24 #60 tabs loratadine 10 mg tablet 10 mg PO DAILY 30 days #30 tabs 06/10/24 omeprazole 20 mg capsule,delayed 20 mg PO BID 30 days #60 caps 06/10/24 release paliperidone palmitate 234 mg/1.5 234 mg (1.5 mL) IM Q30D 30 days 06/10/24 mL intramuscular syringe (Invega #1.5 mL Sustenna) thiamine HCl (vitamin B1) 100 mg 100 mg PO BID 30 days #60 tabs 06/10/24 tablet (Vitamin B-1) trazodone 50 mg tablet 50 mg PO BEDTIME MRX1 PRN Insomnia 06/10/24 30 days #60 tabs white petrolatum-mineral oil 1 appl topical BID 30 days #5 grams 06/10/24 topical cream (Dermacerin (petrolatum-mineral oil) topical cream) paliperidone 9 mg tablet,extended 9 mg PO DAILY #30 tabs 06/11/24 release 24 hr (Invega) Allergies Allergy/AdvReac Type Severity Reaction Status Date / Time bee pollen Allergy Severe Anaphylaxis Verified 03/03/25 17:20 levofloxacin (From Levaquin) Allergy Severe Itching Verified 03/03/25 17:20 enoxaparin (From Lovenox) Allergy Intermediate Rash Verified 03/03/25 17:20 Seasonal Allergies Allergy Mild Runny Nose Verified 03/03/25 17:20 venlafaxine (From Effexor) Allergy Mild Constipatio Verified 03/03/25 17:20 n Penicillins Allergy Unknown Unknown Verified 03/03/25 17:20 Review of Systems Review of Systems: All other systems are reviewed and are negative Constitutional: Reports as per HPI and Reports no additional constitutional complaints Eyes: Reports as per HPI and Reports no additional eye complaints Reports system reviewed and no additional complaints, except as documented Cardiovascular: Reports as per HPI and Reports no additional cardiovascular complaints Respiratory: Reports as per HPI and Reports no additional respiratory complaints Gastrointestinal: Reports as per HPI and Reports no additional gastrointestinal complaints Genitourinary: Reports no additional female genitourinary complaints Musculoskeletal: Reports no additional musculoskeletal complaints Skin/Breast: Reports system reviewed and no additional complaints, except as docu Psychiatric: Reports no additional psychiatric complaints Endocrine: Reports no additional endocrine complaints Hematologic/Lymphatic: Reports no additional hematologic/lymphatic complaints Allergic/Immunologic: Reports no additional allergic/immunologic complaints Reports system reviewed and no additional complaints, except as documented and Reports Abnormal speech present PMFSH Past Medical History Medical History History of skin cancer Hx of bladder problems VITO (generalized anxiety disorder) Murmur, cardiac Hx of thyroid nodule Osteopenia Hx of skin cancer, basal cell Seasonal allergies Insomnia Constipation GERD (gastroesophageal reflux disease) Anxiety History of electroconvulsive therapy Bipolar 1 disorder Surgical History Hx of colonoscopy H/O elbow surgery History of back surgery Family History Family History Mother Basal cell carcinoma (BCC) in situ of skin Osteoporosis Hyperlipidemia Father CAD (coronary artery disease) Alcoholism Sister Osteoporosis Depression Brother Cancer of tongue Cancer of skin Social History Social History Household Members: Other Household Members Other:: Dog. Housing: Apartment Are you a primary personal carer to a significant other at home: No Do you presently have visiting nurse or other home services: Yes Unable to assess alcohol history related to: Unable to respond Patient Tobacco Use Status: Never used Tobacco Tobacco use type: Cigarette Years Smoked: 30+, now vapes e-Cigarette/Vaping Use: Currently Using Second Hand Smoke Exposure: No Substance Use Type: Crack/Cocaine Advance Directives: Yes Advance Directives on File: Yes Advance Directives Date on File: 06/12/24 Do you have a plan to hurt others: No Plan service: No Current occupational status: unemployed and retired 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 Sexual orientation: Straight/Heterosexual Physical Exam Vital Signs: Vital Signs: Last Vital Signs Temp 98.7 F 03/03/25 18:12 Pulse 90 03/03/25 19:29 Resp 18 03/03/25 19:29 BP 140/89 H 03/03/25 19:29 Pulse Ox 97 03/03/25 19:29 O2 Del Method Room Air 03/03/25 19:29 BMI result Body Mass Index 20.7 Vital signs have been reviewed and appear to be correct. Blood pressure elevated. Heart rate normal. Respiratory rate normal. Temperature normal. Oxygen saturation normal. Appearance: Alert. No acute distress. Head: Normal external exam. Normocephalic. Atraumatic. No Fisher signs noted. No raccoon eyes noted Eyes: PERRLA. EOMI. Conjunctiva and sclera normal. Eyelids normal. ENT: TM's Normal. Pharynx normal. Uvula midline. Moist mucous membranes. No trismus noted. No drooling noted. No muffled voice noted. Neck: Normal inspection. Neck supple. FROM. No adenopathy. Thyroid Normal. No meningeal signs. No neck mass noted. CVS: Normal heart rate and rhythm. Heart sound normal. No murmurs noted. Pulses normal throughout. Respiratory: No respiratory distress. Painless inspiration. Breath sounds normal. No wheezes/rales/rhonchi noted. Chest nontender. No accessory muscle usage noted or decreased air movement noted. Abdomen: Soft and nontender. Bowel sounds normal in all 4 quadrants. No distention noted. No organomegaly noted. No visible injury noted. Back: No CVA tenderness. Full range of motion noted. Skin: Skin warm and dry. Normal skin color. Normal skin turgor. No rashes/lesions/lacerations noted. Extremities: No lower extremity edema. Extremities exhibit normal range of motion. Extremities nontender. Neuro: Cranial nerve exam: II-XII are grossly intact No motor deficit. No sensory deficit. Reflexes normal. Course Reevaluation(s) Reevaluation #1: 69-year-old female with bipolar/catatonia presented from [facility] for further medical evaluation after patient started to be catatonic today. Patient is scheduled for ECT at [facility] according to [facility]'s report. No acute medical intervention is needed at this point patient can go back to [facility] patient is under section 21. Time: 20:17 Medical Decision Making Differential Diagnosis Differential Diagnoses: The differential diagnosis associated with the presentation includes (Acute psychosis, metabolic encephalopathy, intracranial pathology, electrolyte derangement, severe anemia, dehydration, UTI, pneumonia.) Admission/Observation Consideration of admission/observation: Escalation of care including admission/observation considered Lab Data MDM Lab Attestation statement: I reviewed the patient's lab results. 03/03/25 18:08 03/03/25 18:08 Labs: Lab Results 03/03/25 03/03/25 Range/Units 17:17 18:08 WBC 8.5 (4.8-10.8) X10*3/uL RBC 4.63 (4.20-5.50) X10*6/uL Hgb 14.4 (12.0-16.0) g/dl Hct 41.8 (37.0-47.0) % MCV 90.3 (80.0-98.0) fL MCH 31.1 (27.0-33.0) pg MCHC 34.4 (31.0-35.0) g/dl RDW 12.7 (11.0-16.0) % Plt Count 259 (160-400) X10*3/uL MPV 8.3 L (9.4-12.3) fL Immature Gran % (Auto) 0.6 H (0.0-0.4) % Neut % (Auto) 68.2 (45-73) % Lymph % (Auto) 22.4 (20-40) % Cataño % (Auto) 8.1 (2-11) % Eos % (Auto) 0.2 (0-4) % Baso % (Auto) 0.5 (0-2) % Lymph # (Auto) 1.9 (1.2-4.9) X10*3/uL Cataño # (Auto) 0.7 (0.1-1.2) X10*3/uL Eos # (Auto) 0.0 (0.0-0.4) X10*3/uL Baso # (Auto) 0.0 (0.0-0.2) X10*3/uL Abs Immat Gran (auto) 0.05 H (0.00-0.03) X10*3/uL Absolute Neuts (auto) 5.8 (2.0-8.3) x10*3/uL Absolute Nucleated RBC 0.000 (0.0-0.012) X10*3/uL Nucleated RBC % (auto) 0.0 (0.0-0.2) /100WBC Sodium 140 (135-145) mmol/L Potassium 4.4 (3.3-5.1) mmol/L Chloride 105 (96-108) mmol/L Carbon Dioxide 23 (22-29) mmol/L Anion Gap 16 (12-20) BUN 19 H (9-16) mg/dL Creatinine 0.71 (0.5-1.4) mg/dL Estim Creat Clear Calc 79.2 Estimated GFR > 60 POC Glucose 93 (60-115) mg/dL Random Glucose 85 (60-115) mg/dL Calcium 9.3 (8.4-10.2) mg/dL Total Bilirubin 0.3 (0.0-1.0) mg/dL Direct Bilirubin 0.1 (0.0-0.5) mg/dL AST 23 (5-31) U/L ALT 11 (0-31) U/L Alkaline Phosphatase 118 H (39-117) U/L Troponin I High Sens < 2.7 (<3.5-17.0) ng/L B-Natriuretic Peptide < 10 (<100) pg/mL Total Protein 7.1 (6.5-8.0) g/dL Albumin 4.3 (3.5-5.0) g/dL Lipase 30 (8-78) U/L Influenza Type A (PCR) NEGATIVE (Negative) Influenza Type B (PCR) NEGATIVE (Negative) RSV RNA Qual (PCR) NEGATIVE (Negative) SARS-CoV-2 RNA (RT-PCR) NEGATIVE (Negative) Independent Interpretation I performed an independent interpretation of an: Plain X-Ray (Chest: No acute pathology.) and CT Scan (Head: No acute intracranial pathology.) Radiology Impression Discussion of test interpretation with radiology: I have reviewed the radiologist's reading. Discharge Plan Discharge Clinical Impression: Bipolar I disorder with catatonia Patient Disposition: Xfer Psychiatric Hosp Instructions: Bipolar Disorder (ED) Prescriptions: No Action benztropine 0.5 mg Tablet 0.25 mg PO BID 30 Days Qty: 30 0RF trazodone 50 mg Tablet 50 mg PO BEDTIME MRX1 PRN (Reason: Insomnia) 30 Days Qty: 60 0RF gabapentin 300 mg Capsule 600 mg PO BEDTIME 30 Days Qty: 60 0RF hydroxyzine HCl 25 mg Tablet 25 mg PO Q6H PRN (Reason: Anxiety) 30 Days Qty: 60 0RF loratadine 10 mg Tablet 10 mg PO DAILY 30 Days Qty: 30 0RF Invega Sustenna 234 mg/1.5 mL Syringe 234 mg IM Q30D 30 Days Qty: 1.5 0RF omeprazole 20 mg Capsule,Delayed Release(Dr/Ec) 20 mg PO BID 30 Days Qty: 60 0RF Dermacerin(petrolatum-min.oil) Cream 1 appl topical BID 30 Days Qty: 5 0RF Protocol: Apply to: Apply to: face thiamine HCl (vitamin B1) [Vitamin B-1] 100 mg tablet 100 mg PO BID 30 Days Qty: 60 0RF docusate sodium 100 mg capsule 1 cap PO BID 30 Days Qty: 60 0RF eszopiclone [Lunesta] 3 mg tablet 3 mg PO BEDTIME 30 Days Qty: 30 0RF paliperidone [Invega] 9 mg tablet extended release 24 hr 9 mg PO DAILY Qty: 30 0RF Print Language: Belgian
--- NOTE | 2025-03-03 17:23 | ECG_ITS ---
Test Reason : MENTAL STATUS CHANGE Blood Pressure : */* mmHG Vent. Rate : 90 BPM Atrial Rate : 90 BPM P-R Int : 118 ms QRS Dur : 70 ms QT Int : 360 ms P-R-T Axes : 10 24 -6 degrees QTcB Int : 440 ms Normal sinus rhythm Poor data quality When compared with ECG of 25-Apr-2024 08:10, No significant changes seen Referred By: Augustine Vega Electronically Signed By: Arturo Tomlinson
[2025-03-03 17:29] LABS: Glucose, Whole Blood 93 mg/dL (60-115)
--- NOTE | 2025-03-03 17:52 | PC.NURSE ---
patient comes from [facility], patient presents for catatonic state, recieved 500cc fluid from EMS. patient does not answer any questions, but tracks staff with eyes. patient placed on tele monitor VSS. patient sister presented at bedside while mri ct tech was inventorying patient belongings from [facility], patient sister attempted to take patients personal belongings and yelled at this RN that she is getting no help with getting into patients apartment, informed patients sister that she must communicate with cherellehugo littlejohn about patients belongings as patient is here for ED visit. patients sister yelled at this RN stating she was the HCP. petal shaper hand made aware, security notified. patients sister left unit. patient is unable to communicate at this time just stares with eyes forward. patient belongings were placed in esmer port
[2025-03-03 18:11] LABS: MANUAL DIFF FLAG NO
[2025-03-03 18:12] VITALS: BP 154/88; PULSE 91; RESP 19; TEMP 37.1; O2SAT 97
[2025-03-03 18:12] LABS: Hematocrit 41.8 % (37.0-47.0); Hemoglobin 14.4 g/dl (12.0-16.0); Imm Gran Abs Auto 0.05 X10*3/uL (0.00-0.03); Imm Gran Pct Auto 0.6 % (0.0-0.4); Lymphocytes Absolute Auto 1.9 X10*3/uL (1.2-4.9); Mean Corpuscular HGB Conc 34.4 g/dl (31.0-35.0); Mean Corpuscular Hemoglobin 31.1 pg (27.0-33.0); Mean Corpuscular Volume 90.3 fL (80.0-98.0); NRBC Abs Auto 0.000 X10*3/uL (0.0-0.012); NRBC Pct Auto 0.0 /100WBC (0.0-0.2); Platelet Count 259 X10*3/uL (160-400); Red Blood Count 4.63 X10*6/uL (4.20-5.50); White Blood Count 8.5 X10*3/uL (4.8-10.8)
[2025-03-03 18:33] LABS: Alanine Aminotransferase 11 U/L (0-31); Albumin Level 4.3 g/dL (3.5-5.0); Alkaline Phosphatase 118 U/L (39-117); Anion Gap 16 (12-20); Aspartate Amino Transferase 23 U/L (5-31); Blood Urea Nitrogen 19 mg/dL (9-16); Calcium 9.3 mg/dL (8.4-10.2); Carbon Dioxide 23 mmol/L (22-29); Chloride 105 mmol/L (96-108); Creatinine Clr Calc Pharmacy 79.2; Estimated Glomerular Filt Rate > 60; Lipase 30 U/L (8-78); Potassium 4.4 mmol/L (3.3-5.1); Sodium 140 mmol/L (135-145); Total Protein 7.1 g/dL (6.5-8.0)
[2025-03-03 18:36] LABS: B Type Natriuretic Peptide < 10 pg/mL (<100)
[2025-03-03 18:38] LABS: Troponin-I High Sensitivity < 2.7 ng/L (<3.5-17.0)
[2025-03-03 18:54] LABS: Resp Syncy Virus RNA Qual PCR NEGATIVE (Negative); SARS COV2 PCR INHOUSE NEGATIVE (Negative)
--- OUTSIDE RECORDS SUMMARY | 2025-03-03 19:05 | XMS_ITS | Encounter Summary ---
Author Organization [facility] Address [address] [place] [id number] Phone Care Team Providers Care Vocal Artist Name Role Phone Theresa Nelson MD Primary Care Provider Encounter Details Date Type Department Care Team (Late st Contact Info) Description 02/16/2025 Procedure Pass [facility] [place], [facility] Scan - [facility] [address] [place] [address] Social History Tobacco Use Types Packs/Day Years Used Date Smoking Tobacco: Former Smokeless Tobacco: Never Comments:Pt reports occasion al vaping of nicotine Alcohol Use Standard Drinks/Week Comments Not Currently 0 (1 standard drink = 0.6 oz pur e alcohol) Education Answer Date Recorded Are you interested in more education? Not on kyrie e 10/27/2022 Are you concerned about learning? Not on file 10/27/2022 No 10/27/2022 No 10/27/2022 Food Answer Date Recorded Within the past 6 months we worried whether our food would run out before we got money to buy more. Unable to assess 025 Within the past 6 months the food we bought just didn't last and we didn't have enough money to get more. Unable to assess 02/17/2025 Residential Stability Answer Date Recor ded What is your housing situation today? Unable to assess 02/17/2025 How many times have you moved in the past 12 sun ths? Unable to assess 02/17/2025 Paying for Meds Answer Date Recorded Do you have trouble paying for medicines? Unable to assess 02/17/2025 Paying Utility Bills Answer Date Record ed Do you have trouble paying y our heating or electricity bill? Unable to assess 02/17/2025 Transportation Answer Date Recorded Has the lack of transportati on kept you from medical appointments or from getting medications? Unable to assess 02/17/2025 Digital Access Answer Date Recorded No 02/17/2025 No 02/17/2025 Do you have reliable internet access at home? Un able to assess 02/17/2025 Do you have a device (e.g., phone, tablet, computer) with a working camera? Unable to assess 02/17/2025 Intimate Partner Violence Answer Date R ecorded Are you denied basic needs s uch as food, clothing, or medical care? No 02/16/2025 In the past 12 months have y ou been in a relationship with a person who hurts, threatens, or tries to control you? No 02/16/2025 Are you denied basic needs s uch as food, clothing, or medical care? No 02/16/2025 In the past 12 months have y ou been in a relationship with a person who hurts, threatens, or tries to control you? No 02/16/2025 Comments No Sex and Gender Information Value Date Recorded Sex Assigned at Female 07/29/2017 1:36 PM EST Legal Sex Female 9:52 PM EDT Gender Identity Female 07/29/2017 1:36 PM EST Sexual Orientation Straight 07/29/2017 1: 36 PM EST documented as of this encounter Functional Status * Calculated C-SSRS Risk Score (Lifetime/Recent) Answer Date of Assessment Author No Risk Indicated 02/17/2025 10:56 AM Aleena Montano RN * [place] Suicide Severity Rating Scale (Screener/Recent Self-Report) Question Answer Date of Assessment Author 1. Wish to be (Past 1 Month) No 025 10:56 AM Aleena Montano RN 2. Non-Specific Active Suici tanner Thoughts (Past 1 Month) No 02/17/2025 10:56 AM Aleena Montano RN 6. Suicidal Behavior (Lifetime) No 10:56 AM Aleena Montano RN documented as of this encounter Plan of Treatment Not on file documented as of this encounter Visit Diagnoses Not on filedocumented in this encounter Care Teams Vocal Artist Relationship Specialty Start Date End Date Theresa Nelson MD [address] [place] [id number] [email or web address] PCP - General 07/05/17 documented as of this encounter Additional Source Comments The information contained in this document represents components of the legal health record. It is not the complete legal health record.[facility]
--- OUTSIDE RECORDS SUMMARY | 2025-03-03 19:05 | XMS_ITS | Encounter Summary ---
Author Organization [facility] Address [address] [place] [address] [place] [phone] Phone Care Team Providers Care Automobile Accessories Salesperson Name Role Phone Theresa Nelson MD Primary Care Provider Encounter Details Date Type Department Care Team (Late st Contact Info) Description 10/26/2023 Procedure [facility], [facility] [address] [place] [address] Social History Tobacco Use Types Packs/Day Years Used Date Smoking Tobacco: Former Smokeless Tobacco: Never Comments:Pt reports occasion al vaping of nicotine Alcohol Use Standard Drinks/Week Comments Yes 0 (1 standard drink = 0.6 oz pur e alcohol) Education Answer Date Recorded Are you interested in more education? Not on kyrie e 10/27/2022 Are you concerned about learning? Not on file 10/27/2022 No 10/27/2022 No 10/27/2022 Digital Access Answer Date Recorded No 11/25/2022 No 11/25/2022 Reliable internet access at home? Not on file 11/25/2022 Device with a working camera? Not on file Comments No Sex and Gender Information Value Date Recorded Sex Assigned at Female 07/29/2017 1:36 PM EST Legal Sex Female 9:52 PM EDT Gender Identity Female 07/29/2017 1:36 PM EST Sexual Orientation Straight 07/29/2017 1: 36 PM EST documented as of this encounter Plan of Treatment Not on file documented as of this encounter Visit Diagnoses Not on filedocumented in this encounter Care Teams Automobile Accessories Salesperson Relationship Specialty Start Date End Date Theresa Nelson MD [address] [place] [address] [email or web address] - General 07/05/17 documented as of this encounter Additional Source Comments The information contained in this document represents components of the legal health record. It is not the complete legal health record.[facility]
--- OUTSIDE RECORDS SUMMARY | 2025-03-03 19:05 | XMS_ITS | Clinical Summary ---
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 ibuprofen (ADVIL,MOTRIN) 600 MG tablet Take 1 tablet (600 mg total) by mouth 3 (three) times a day. 4 Active omeprazole (PRILOSEC) 20 MG capsule Take 1 capsule (20 mg total) by mouth 2 (two) times a day. 14 capsule 5 Active Additional Information Patient taking differently:20 mg OralDaily, Reported on 02/17/2025 docusate sodium (STOOL SOFTENER) 100 MG capsule Take 2 capsules (200 mg total) by mouth 2 (two) times a day. 28 capsule 5 Active Additional Information Patient taking differently:200 mg Oral2 times daily PRN, mild constipation, Reported on 02/17/2025 traZODone (DESYREL) 100 MG tablet Take 1 tablet (100 mg total) by mouth nightly at bedtime. 7 tablet Active Additional Information Patient not taking.Reported on 02/17/2025 doxylamine (UNISON) 25 mg tablet Take 1 tablet (25 mg total) by mouth nightly at bedtime. 7 tablet 5 Active Additional Information Patient not taking.Reported on 02/17/2025 loratadine (CLARITIN) 10 mg tablet Take 1 tablet (10 mg total) by mouth daily. 7 tablet Active QUEtiapine (SEROQUEL XR) 400 MG 24 hr tablet Take 1 tablet (400 mg total) by mouth nightly at bedtime. 7 tablet Active Additional Information Patient not taking.Reported on 02/18/2025 thiamine (VITAMIN B-1) 100 MG tablet Take 100 mg by mouth 2 (two) times a day. Active eszopiclone (LUNESTA) 3 mg tablet Take 3 mg by mouth nightly at bedtime. Take immediately before bedtime Active QUEtiapine (SEROQUEL) 400 MG tablet Take 400 mg by mouth nightly at bedtime. Active Active Problems Problem Noted Date Diagnosed Date Paranoid behavior 02/17/2025 Anxiety disorder, unspecified 09/09/2024 Anxiety 09/07/2024 Severe recurrent major depre ssion with psychotic features, mood-congruent 10/09/2023 Suicidal ideation 10/08/2023 Encounters Date Type Department Care Team Description 02/16/2025 7:44 PM EDT - 02/20/2025 11:23 AM EDT Emergency [facility] [address] [place] [id number] Hari Kaminski MD Kanter, Carolyn R, MD Brewer, Allison V, MD Andrade, Olyn Amanda, MD Savage, Justin G, DO Griffith, Andrew Thomas Liao, MD Devries, Miles Alaniz MD [facility]position: [facility] 02/16/2025 Procedure Pass [facility], Ct Scan - [address] [address] 02/16/2025 Procedure Pass [facility], Ct Scan - [address] [address] from Last 3 Months Immunizations Immunization Administration Dates Next Due Influenza High-Dose Trivalen t Preservative Free IM 10/03/2024(Deferred: Patient Refused) Family History Medical History Relation Comments CV disease Father 2 Relation Status Comments Father 1 Father 2 Social History Tobacco Use Types Packs/Day Years Used Date Smoking Tobacco: Former Smokeless Tobacco: Never Tobacco Cessation:Counseling Given: Not Answered Comments:Pt reports occasional vaping of nicotine Alcohol Use Standard Drinks/Week [...] have you moved in the past 12 mon ths? Unable to assess 02/17/2025 Paying for [...] Orientation Straight 07/29/2017 1: 36 PM EST Last Filed Vital Signs Vital Sign Reading Time Taken Comments Blood Pressure 127/77 02/20/2025 10:47 AM EDT Pulse 94 02/20/2025 10:47 AM EDT Temperature 36.5 C (97.7 F) 02/20/2025 10:47 AM EDT Respiratory Rate 16 02/20/2025 10:47 AM EDT Oxygen Saturation 99% 02/20/2025 10:47 AM EDT Inhaled Oxygen Concentration - - Weight 71.7 kg (158 lb) 02/17/2025 10:40 AM EDT Height 172.7 cm (5' 8 ) 02/17/2025 10:40 AM EDT Body Mass Index 24.02 02/17/2025 10:40 AM EDT Plan of Treatment Health Maintenance Due Date Last Done Comments DEPRESSION SCREENING 1969 SMOKING Hx and SMOKELESS TOBACCO SCREENING 1970 HEPATITIS C SCREENING 09/30/1975 MAMMOGRAM 1997 COLOGUARD 2002 COLONOSCOPY 2002 COLORECTAL CANCER SCREENING 2002 FIT TEST 2002 FOBT 2002 SIGMOIDOSCOPY 2002 VIRTUAL COLONOSCOPY 2002 ZOSTER VACCINES (1 of 2) 09/30/2007 OSTEOPOROSIS SCREENING INITIAL (ONE-TIME) 2022 INFLUENZA VACCINE (#1) 2025 , 04/08/2020, 02/26/2019, Additional history exists COVID-19 VACCINE ( season) 2025 04/27/2022, 11/29/2021, 07/14/2021, Additional history exists Adult Td,Tdap Booster 12/28/2025 12/29/2015 LIPID PANEL 10/13/2028 10/14/2023 RSV VACCINE (1 - 1-dose 75+ series) 2032 PNEUMOCOCCAL VACCINES (50+ years) Completed 01/17/2023, 10/12/2022, 07/13/2009 HEPATITIS A VACCINES Aged Out No long er eligible based on patient's age to complete this topic HIB VACCINES Aged Out No longer eligi ble based on patient's age to complete this topic MENINGOCOCCAL VACCINES (ACWY) Aged Out No longer eligible based on patient's age to complete this topic MENINGOCOCCAL VACCINES (B) Aged Out N o longer eligible based on patient's age to complete this topic Medical Devices Not on file Procedures Procedure Name Priority Date/Time Associated Diagnosis Comments ECG 12-LEAD Routine 02/18/2025 3:07 PM EDT TOXICOLOGY SCREEN, URINE STAT 02/16/2025 10:34 PM EDT URINALYSIS W/REFLEX URINE CULTURE STAT 02/16/2025 10:34 PM EDT XR WRIST 3 OR MORE VIEWS (RIGHT) Routine 02/16/2025 10:10 PM EDT TROPONIN STAT 02/16/2025 9:49 PM EDT ETHANOL, BLOOD STAT 02/16/2025 8:37 PM EDT TROPONIN STAT 02/16/2025 8:37 PM EDT PT-INR STAT 02/16/2025 8:37 PM EDT MAGNESIUM STAT 02/16/2025 8:37 PM EDT LFTS (HEPATIC PANEL) STAT 02/16/2025 8:37 PM EDT BASIC METABOLIC PANEL STAT 02/16/2025 8:37 PM EDT CBC AND DIFFERENTIAL STAT 02/16/2025 8:37 PM EDT XR CHEST PORTABLE Routine 02/16/2025 8:1 9 PM EDT ECG 12-LEAD STAT 02/16/2025 8:[address] ANGIO HEAD (CODE STROKE) W CONTRAST, CT ANGIO NECK W CONTRAST Routine 02/16/2025 8:[address] HEAD (CODE STROKE) WITHOUT CONTRAST Routine 02/16/2025 8:02 PM EDT LIPID PANEL Routine 10/14/2023 8:20 AM EDT from Last 3 Months or Most Recently Relevant to Health Maintenance Results * ECG 12-LEAD (02/18/2025 3:07 PM EDT) Only the most recent of2 resultswithin the time period is included. Ventricular Rate EKG/MIN 89 BPM [facility] Atrial Rate 89 BPM [facility] AL Interval 136 ms [facility] QRS Duration 70 ms [facility] QT Interval 374 ms [facility] QTC Interval 455 ms [facility] P [place] 48 degrees [facility] R Wave [place] 32 degrees [facility] T Wave [place] 16 degrees [facility] 02/18/2025 3:07 PM EDT 02/20/2025 11:34 PM EDT Narrative [facility] - 02/20/2025 11:34 PM EDT Normal sinus rhythm Low voltage QRS Borderline ECG When compared with ECG of 16-Feb-2025 20:13, No significant change was found Confirmed by Abdulkadir Dela Crzu ([id number]) on 02/20/2025 11:34:06 PM us Ariella Welch MD ECG ORDERABLES Final Res ult [facility] * (ABNORMAL) Urinalysis w/reflex Urine Culture (02/16/2025 10:34 PM EDT) COLOR Yellow Yellow [facility] CLARITY Clear [facility] GLUCOSE Negative Negative [facility] BILI Negative Negative [facility] KETONES 1+(A) Negative [facility] SPECIFIC GRAVITY 1.010 1.005 - 1.030 [facility] BLOOD Trace(A) Negative [facility] PH 8.0 5.0 - 8.0 [facility] Protein-UA Negative Negative [facility] NITRITE Negative Negative [facility] Leukocyte esterase, ur Negative Negative [facility] Urine (Urine) 02/16/2025 10: 34 PM EDT 02/16/2025 11:04 PM EDT us Hari Kaminski MD URINE ORDERABLES Final R esult [address] [address] * Toxicology screen, urine (02/16/2025 10:34 PM EDT) URINE CANNABINOIDS NONE DETECTED NONE DETECTED [facility] Comment:Cutoff: 50 ng/mL URINE COCAINE METAB NONE DETECTED NONE DETECTED [facility] Comment:Cutoff: 300 ng/mL URINE AMPHETAMINES NONE DETECTED NONE DETECTED [facility] Comment:Cutoff: 1000 ng/mL URINE METHADONE NONE DETECTED NONE DETECTED [facility] Comment:Cutoff: 300 ng/mL URINE OPIATES NONE DETECTED NONE DETECTED [facility] Comment:Cutoff: 300 ng/mL URINE PHENCYCLIDINE NONE DETECTED NONE DETECTED [facility] Comment:Cutoff: 25 ng/mL URINE OXYCODONE NONE DETECTED NONE DETECTED [facility] Comment:Cutoff: 300 ng/mL URINE BARBITURATES NONE DETECTED NONE DETECTED [facility] Comment:Cutoff: 200 ng/mL URINE BENZODIAZEPINE NONE DETECTED NONE DETECTED [facility] Comment:Cutoff: 200 ng/mL URINE BUPRENORPHINE NONE DETECTED NONE DETECTED [facility] Comment:Cutoff: 5 ng/mL Fentanyl, urine NONE DETECTED NONE DETECTED [facility] Comment: Cutoff: 5 ng/mL INTERPRETATION FOR TOXICOLOGY PANEL: These results are unconfirmed and should be used for Medical Treatment purposes only. Urine (Urine) 02/16/2025 10: 34 PM EDT 02/16/2025 11:04 PM EDT us Hari Kaminski MD URINE ORDERABLES Final R esult [facility] [address] [place] [address] * XR WRIST 3 OR MORE VIEWS (RIGHT) (02/16/2025 10:10 PM EDT) Anatomical Region Laterality Modality Wrist Right Computed Radiogr aphy 02/17/2025 12:1 4 AM EDT Impressions 02/17/2025 12:15 AM EDT FINDINGS/impression: No acute displaced fracture or dislocation. Prior orthopedic fixation of the distal radius with a volar plate and screw mechanism. The carpal arcs and carpal alignments are grossly maintained. Soft tissues are unremarkable. Narrative 02/17/2025 12:15 AM EDT XR WRIST 3 OR MORE VIEWS (RIGHT) Referring clinician's provided indication for this examination in [facility]: Pain; swelling and pain COMPARISON: Right forearm radiograph from October 24, 2023 Procedure Note Linwood Quinn MD - 02/17/2025 XR WRIST 3 OR MORE VIEWS (RIGHT) Referring clinician's provided indication for this examination in [facility]:Pain; swelling and pain COMPARISON: Right forearm radiograph from October 24, 2023 IMPRESSION: FINDINGS/impression: No acute displaced fracture or dislocation. Prior orthopedic fixation ofthe distal radius with a volar plate and screw mechanism. The carpal arcsand carpal alignments are grossly maintained. Soft tissues areunremarkable. Hari Kaminski MD IMG XR UPPER EXTREMITY F inal Result * Troponin (02/16/2025 9:49 PM EDT) Only the most recent of2 resultswithin the time period is included. Troponin-T, HS Gen5 <6 0 - 9 ng/L [facility] Blood 02/16/2025 9:49 PM EDT 02/16/2025 10:01 PM EDT us Hari Kaminski MD LAB BLOOD ORDERABLES Fin al Result Performing Organization Address City/[facility]/ZIP Co de Phone Number [address] [address] * Ethanol, blood (02/16/2025 8:37 PM EDT) ETHANOL <10 <10 mg/dL [facility] Blood 02/16/2025 8:37 PM EDT 02/16/2025 8:57 PM EDT us Hari Kaminski MD LAB BLOOD ORDERABLES Fin al Result Performing Organization Address [facility] Co de Phone Number [address] [address] * LFTs (hepatic panel) (02/16/2025 8:37 PM EDT) ALKALINE PHOSPHATASE 114 39 - 117 U/L [facility] TOTAL BILIRUBIN <0.2 0.0 - 1.2 mg/dL [facility] DIRECT BILIRUBIN <0.1 0.0 - 0.2 mg/dL [facility] Bilirubin (Indirect) NOT CALCULATED 0 - 1.5 mg/dL [facility] AST 17 0 - 37 U/L [facility] ALT 9 0 - 40 U/L [facility] TOTAL PROTEIN 7.3 6.5 - 8.0 g/dL [facility] ALBUMIN 4.4 3.9 - 4.8 g/dL [facility] GLOBULIN 2.9 1 - 4.8 g/dL [facility] A/G Ratio 1.52 1.00 - 4.80 RATIO [facility] Blood 02/16/2025 8:37 PM EDT 02/16/2025 8:57 PM EDT us Hari Kaminski MD LAB BLOOD ORDERABLES Fin al Result Performing Organization Address City/[facility]/ZIP Co de Phone Number [address] [address] * PT-INR (02/16/2025 8:37 PM EDT) PT 11.8 10.2 - 12.9 sec [facility] INR 1.0 0.9 - 1.1 [facility] Comment:Therapeutic range fo r oral Vitamin K antagonists: 2.0-3.5 Blood 02/16/2025 8:37 PM EDT 02/16/2025 8:57 PM EDT us Hari Kaminski MD LAB BLOOD ORDERABLES Fin al Result [facility] [address] [place] [address] * CBC and differential (02/16/2025 8:37 PM EDT) WBC 7.13 4.00 - 11.00 K/uL [facility] RBC 4.27 4.00 - 5.20 M/uL [facility] HGB 13.0 12.0 - 16.0 g/dL [facility] HCT 39.3 36.0 - 46.0 % [facility] PLT 287 150 - 450 K/uL [facility] MCV 92.0 80.0 - 100.0 fL [facility] MCH 30.4 27.0 - 31.0 pg [facility] MCHC 33.1 32.0 - 36.0 g/dL [facility] RDW 13.3 11.5 - 14.5 % [facility] MPV 8.5 8.4 - 12.0 fL [facility] NRBC 0.00 0.00 /100 WBCs [facility] ABSOLUTE NRBC 0.00 0.00 K/uL [facility] DIFF METHOD Auto [facility] NEUTS 65.2 48.0 - 76.0 % [facility] LYMPHS 25.8 18.0 - 41.0 % [facility] MONOS 7.6 4.0 - 11.0 % [facility] EOS 0.7 0.0 - 5.0 % [facility] BASOS 0.4 0.0 - 1.5 % [facility] Granulocytes, immature (%) 0.3 0.0 - 0.9 % [facility] ABSOLUTE NEUTS 4.65 1.92 - 7.60 K/uL [facility] ABSOLUTE LYMPHS 1.84 0.72 - 4.10 K/uL [facility] ABSOLUTE MONOS 0.54 0.16 - 1.10 K/uL [facility] ABSOLUTE EOS 0.05 0.00 - 0.50 K/uL [facility] ABSOLUTE BASOS 0.03 0.00 - 0.15 K/uL [facility] Granulocytes, immature 0.02 0.00 - 0.09 K/uL [facility] Blood 02/16/2025 8:37 PM EDT 02/16/2025 8:57 PM EDT us Hari Kaminski MD LAB BLOOD ORDERABLES Fin al Result Performing Organization Address [facility]/ZIP Co de Phone Number [address] [address] * Magnesium (02/16/2025 8:37 PM EDT) Pathologist [facility] MAGNESIUM 2.2 1.6 - 2.6 mg/dL [facility] Blood 02/16/2025 8:37 PM EDT 02/16/2025 8:57 PM EDT us Hari Kaminski MD LAB BLOOD ORDERABLES Fin al Result Performing Organization Address [facility]/ZIP Co de Phone Number [address] [address] * (ABNORMAL) Basic metabolic panel (02/16/2025 8:37 PM EDT) SODIUM 138 133 - 146 mmol/L [facility] CHLORIDE 103 96 - 108 mmol/L [facility] POTASSIUM 3.7 3.3 - 5.1 mmol/L [facility] CO2 23 21 - 35 mmol/L [facility] BUN 15 6 - 19 mg/dL [facility] CREATININE 0.70 0.5 - 1.5 mg/dL [facility] GLUCOSE 110(H) 70 - 99 mg/dL [facility] CALCIUM 9.9 8.4 - 10.3 mg/dL [facility] EGFR 95 >59 mL/min/1.7 3m2 [facility] Comment:Estimated glomerular filtration rate calculated using the CKD-EPI refit equation. ANION GAP 16 10 - 20 mmol/L [facility] Blood 02/16/2025 8:37 PM EDT 02/16/2025 8:57 PM EDT us Hari Kaminski MD LAB BLOOD ORDERABLES Fin al Result [facility] [address] [place] [address] * XR Chest Portable (02/16/2025 8:19 PM EDT) Anatomical Region Laterality Modality Chest Computed Radiogr aphy 02/16/2025 10:1 6 PM EDT Impressions 02/16/2025 10:20 PM EDT No acute abnormality. Narrative 02/16/2025 10:20 PM EDT XR CHEST PORTABLE Referring clinician's provided indication for this examination in Epic: Fatigue COMPARISON: None FINDINGS: Devices/Tubes/Lines: None. Lungs: No focal consolidation or pulmonary edema. Pleura: No pleural effusion or pneumothorax. Heart/Mediastinum: Normal heart and mediastinum. Bones/Soft Tissues: No significant abnormality. Procedure Note Aldo Alvarado MD - 02/16/2025 XR CHEST PORTABLE Referring clinician's provided indication for this examination in Epic:Fatigue COMPARISON: None FINDINGS: Devices/Tubes/Lines: None. Lungs: No focal consolidation or pulmonary edema. Pleura: No pleural effusion or pneumothorax. Heart/Mediastinum: Normal heart and mediastinum. Bones/Soft Tissues: No significant abnormality. IMPRESSION: No acute abnormality. us Hari Kaminski MD IMG XR CHEST Final Re sult * CT ANGIO HEAD (CODE STROKE) W CONTRAST, CT ANGIO NECK W CONTRAST (02/16/2025 8:02 PM EDT) MGB IMG PYTHON ARCHITECT COMMENT No intracranial hemorrhage. No large vessel occlusion. [facility] Anatomical Region Laterality Modality Neck Computed Tomogra phy 02/16/2025 8:04 PM EDT Impressions 02/16/2025 8:44 PM EDT 1. No acute intracranial abnormality. 2. No acute vascular abnormality. A clinically significant result was initiated on 02/16/2025 8:11 PM, Message ID [id number]. ATTESTATION: I, Layne Harper as teaching physician, have reviewed the images for this case and if necessary edited the report originally created by Eder Chavez. Narrative 02/16/2025 8:[address] HEAD (CODE STROKE) WITHOUT CONTRAST, CT ANGIO HEAD (CODE STROKE) W CONTRAST, CT ANGIO NECK W CONTRAST Referring clinician's provided indication for this examination in Epic: * Neuro deficit, acute, stroke suspected; slurred speech, R sided weakness. TECHNIQUE: * CTA of the head was performed before and after administration of intravenous contrast using tailored dose modulation techniques. Images were reconstructed in the axial, coronal, and sagittal planes, including angiographic image post-processing. 3D angiographic images with reformatting and post-processing reconstructions were performed and interpreted. * CTA of the neck was performed after administration of intravenous contrast using tailored dose modulation techniques. Images were reconstructed in the axial, coronal, and sagittal planes. 3D angiographic images with reformatting and post- processing reconstructions were performed and interpreted. COMPARISON: MRI BRAIN WITHOUT CONTRAST FINDINGS: CT HEAD: Brain Parenchyma: No midline shift, mass effect, parenchymal hemorrhage, or evidence of acute territorial infarct. Hypodensities in the periventricular white matter, likely a manifestation of chronic small vessel disease. Ventricular System and Extra-Axial Spaces: No extra-axial fluid collection. Basilar cisterns patent. Osseous and Extracranial Structures: No calvarial fracture. CTA HEAD: Intracranial internal carotid arteries: No occlusion or high grade stenosis. Intracranial internal carotid artery atherosclerotic calcifications. Anterior cerebral arteries: No occlusion or high grade stenosis. Middle cerebral arteries: No occlusion or high grade stenosis. Vertebrobasilar system: No occlusion or high grade stenosis. Posterior cerebral arteries: No occlusion or high grade stenosis. Venous: No dural sinus thrombosis. CTA NECK: Aortic Arch and Branch Vessel Origins: Normal branching anatomy. No high grade stenosis. Right Carotid Artery: No occlusion, high grade stenosis or dissection. Left Carotid Artery: Atherosclerotic calcifications at the carotid bifurcation causing mild narrowing. No occlusion, high grade stenosis or dissection. Right Vertebral Artery: No occlusion, high grade stenosis or dissection. Left Vertebral Artery: No occlusion, high grade stenosis or dissection. Venous structures: The jugular veins enhance normally. NON-VASCULAR FINDINGS: Lungs and Airways: No consolidation. Soft tissues: No prevertebral soft tissue swelling. Bones: Degenerative changes of the cervical spine. Procedure Note Layne Harper MD - 02/16/2025 CT HEAD (CODE STROKE) WITHOUT CONTRAST, CT ANGIO HEAD (CODE STROKE) WCONTRAST, CT ANGIO NECK W CONTRAST Referring clinician's provided indication for this examination in [facility]: *Neuro deficit, acute, stroke suspected; slurred speech, R sidedweakness. TECHNIQUE: * CTA of the head was performed before and after administration ofintravenous contrast using tailored dose modulation techniques. Imageswere reconstructed in the axial, coronal, and sagittal planes, includingangiographic image post- processing. 3D angiographic images withreformatting and post-processing reconstructions were performed andinterpreted. * CTA of the neck was performed after administration of intravenouscontrast using tailored dose modulation techniques. Images werereconstructed in the axial, coronal, and sagittal planes. 3D angiographicimages with reformatting and post-processing reconstructions wereperformed and interpreted. COMPARISON: MRI BRAIN WITHOUT CONTRAST FINDINGS: CT HEAD: Brain Parenchyma: No midline shift, mass effect, parenchymal hemorrhage,or evidence of acute territorial infarct. Hypodensities in theperiventricular white matter, likely a manifestation of chronic smallvessel disease. Ventricular System and Extra-Axial Spaces: No extra-axial fluidcollection. Basilar cisterns patent. Osseous and Extracranial Structures: No calvarial fracture. CTA HEAD: Intracranial internal carotid arteries: No occlusion or high gradestenosis. Intracranial internal carotid artery atheroscleroticcalcifications. Anterior cerebral arteries: No occlusion or high grade stenosis. Middle cerebral arteries: No occlusion or high grade stenosis. Vertebrobasilar system: No occlusion or high grade stenosis. Posterior cerebral arteries: No occlusion or high grade stenosis. Venous: No dural sinus thrombosis. CTA NECK: Aortic Arch and Branch Vessel Origins: Normal branching anatomy. No highgrade stenosis. Right Carotid Artery: No occlusion, high grade stenosis or dissection. Left Carotid Artery: Atherosclerotic calcifications at the carotidbifurcation causing mild narrowing. No occlusion, high grade stenosis ordissection. Right Vertebral Artery: No occlusion, high grade stenosis or dissection. Left Vertebral Artery: No occlusion, high grade stenosis or dissection. Venous structures: The jugular veins enhance normally. NON-VASCULAR FINDINGS: Lungs and Airways: No consolidation. Soft tissues: No prevertebral soft tissue swelling. Bones: Degenerative changes of the cervical spine. IMPRESSION: 1. No acute intracranial abnormality. 2. No acute vascular abnormality. A clinically significant result was initiated on 02/16/2025 8:11 PM,Message ID [id number]. ATTESTATION: Layne Leahy as teaching physician, have reviewed theimages for this case and if necessary edited the report originally createdby Eder Chavez. Hari Kaminski MD [facility] [place] HEAD/NECK Final R esult * CT HEAD (CODE STROKE) WITHOUT CONTRAST (02/16/2025 8:02 PM EDT) MGB IMG PYTHON ARCHITECT COMMENT No intracranial hemorrhage. No large vessel occlusion. [facility] Anatomical Region Laterality Modality Head Computed Tomogra phy 02/16/2025 8:04 PM EDT Impressions 02/16/2025 8:44 PM EDT 1. No acute intracranial abnormality. 2. No acute vascular abnormality. A clinically significant result was initiated on 02/16/2025 8:11 PM, Message ID [id number]. ATTESTATION: Layne Leahy as teaching physician, have reviewed the images for this case and if necessary edited the report originally created by Eder Chavez. Narrative 02/16/2025 8:[address] HEAD (CODE STROKE) WITHOUT CONTRAST, CT ANGIO HEAD (CODE STROKE) W CONTRAST, CT ANGIO NECK W CONTRAST Referring clinician's provided indication for this examination in [facility]: * Neuro deficit, acute, stroke suspected; slurred speech, R sided weakness. TECHNIQUE: * CTA of the head was performed before and after administration of intravenous contrast using tailored dose modulation techniques. Images were reconstructed in the axial, coronal, and sagittal planes, including angiographic image post-processing. 3D angiographic images with reformatting and post-processing reconstructions were performed and interpreted. * CTA of the neck was performed after administration of intravenous contrast using tailored dose modulation techniques. Images were reconstructed in the axial, coronal, and sagittal planes. 3D angiographic images with reformatting and post- processing reconstructions were performed and interpreted. COMPARISON: MRI BRAIN WITHOUT CONTRAST FINDINGS: CT HEAD: Brain Parenchyma: No midline shift, mass effect, parenchymal hemorrhage, or evidence of acute territorial infarct. Hypodensities in the periventricular white matter, likely a manifestation of chronic small vessel disease. Ventricular System and Extra-Axial Spaces: No extra-axial fluid collection. Basilar cisterns patent. Osseous and Extracranial Structures: No calvarial fracture. CTA HEAD: Intracranial internal carotid arteries: No occlusion or high grade stenosis. Intracranial internal carotid artery atherosclerotic calcifications. Anterior cerebral arteries: No occlusion or high grade stenosis. Middle cerebral arteries: No occlusion or high grade stenosis. Vertebrobasilar system: No occlusion or high grade stenosis. Posterior cerebral arteries: No occlusion or high grade stenosis. Venous: No dural sinus thrombosis. CTA NECK: Aortic Arch and Branch Vessel Origins: Normal branching anatomy. No high grade stenosis. Right Carotid Artery: No occlusion, high grade stenosis or dissection. Left Carotid Artery: Atherosclerotic calcifications at the carotid bifurcation causing mild narrowing. No occlusion, high grade stenosis or dissection. Right Vertebral Artery: No occlusion, high grade stenosis or dissection. Left Vertebral Artery: No occlusion, high grade stenosis or dissection. Venous structures: The jugular veins enhance normally. NON-VASCULAR FINDINGS: Lungs and Airways: No consolidation. Soft tissues: No prevertebral soft tissue swelling. Bones: Degenerative changes of the cervical spine. Procedure Note Layne Harper MD - 02/16/2025 CT HEAD (CODE STROKE) WITHOUT CONTRAST, CT ANGIO HEAD (CODE STROKE) WCONTRAST, CT ANGIO NECK W CONTRAST Referring clinician's provided indication for this examination in Epic: *Neuro deficit, acute, stroke suspected; slurred speech, R sidedweakness. TECHNIQUE: * CTA of the head was performed before and after administration ofintravenous contrast using tailored dose modulation techniques. Imageswere reconstructed in the axial, coronal, and sagittal planes, includingangiographic image post- processing. 3D angiographic images withreformatting and post-processing reconstructions were performed andinterpreted. * CTA of the neck was performed after administration of intravenouscontrast using tailored dose modulation techniques. Images werereconstructed in the axial, coronal, and sagittal planes. 3D angiographicimages with reformatting and post-processing reconstructions wereperformed and interpreted. COMPARISON: MRI BRAIN WITHOUT CONTRAST FINDINGS: CT HEAD: Brain Parenchyma: No midline shift, mass effect, parenchymal hemorrhage,or evidence of acute territorial infarct. Hypodensities in theperiventricular white matter, likely a manifestation of chronic smallvessel disease. Ventricular System and Extra-Axial Spaces: No extra-axial fluidcollection. Basilar cisterns patent. Osseous and Extracranial Structures: No calvarial fracture. CTA HEAD: Intracranial internal carotid arteries: No occlusion or high gradestenosis. Intracranial internal carotid artery atheroscleroticcalcifications. Anterior cerebral arteries: No occlusion or high grade stenosis. Middle cerebral arteries: No occlusion or high grade stenosis. Vertebrobasilar system: No occlusion or high grade stenosis. Posterior cerebral arteries: No occlusion or high grade stenosis. Venous: No dural sinus thrombosis. CTA NECK: Aortic Arch and Branch Vessel Origins: Normal branching anatomy. No highgrade stenosis. Right Carotid Artery: No occlusion, high grade stenosis or dissection. Left Carotid Artery: Atherosclerotic calcifications at the carotidbifurcation causing mild narrowing. No occlusion, high grade stenosis ordissection. Right Vertebral Artery: No occlusion, high grade stenosis or dissection. Left Vertebral Artery: No occlusion, high grade stenosis or dissection. Venous structures: The jugular veins enhance normally. NON-VASCULAR FINDINGS: Lungs and Airways: No consolidation. Soft tissues: No prevertebral soft tissue swelling. Bones: Degenerative changes of the cervical spine. IMPRESSION: 1. No acute intracranial abnormality. 2. No acute vascular abnormality. A clinically significant result was initiated on 02/16/2025 8:11 PM,Message ID [id number]. ATTESTATION: I, Layne Harper as teaching physician, have reviewed theimages for this case and if necessary edited the report originally createdby Eder Chavez. us Hari Kaminski MD IMG CT HEAD/NECK Final R esult * (ABNORMAL) Lipid panel (10/14/2023 8:20 AM EDT) HDL 60 mg/dL [facility] Comment: Interpretation <40 mg/dL: Low HDL cholesterol (major risk factor for CHD) Greater than or equal to 60 mg/dL: High HDL cholesterol ( negative risk factor for CHD) HDL - cholesterol is affected by a number of factors, e.g. smoking, excerise, hormones, sex and age. CHOLESTEROL 241(H) 0 - 240 mg/dL [facility] TRIGLYCERIDES 76 30 - 160 mg/dL [facility] LDL 166(H) 50 - 129 mg/dL [facility] Comment: LDL levels in terms of risk for coronary heart disease: <100 mg/dL: Optimal 100-129 mg/dL: Near or above optimal 130-159 mg/dL: Borderline high 160-189 mg/dL: High >190 mg/dL: Very High CARDIAC RISK RATIO 4.0 3.3 - 4.4 C [facility] Blood 10/14/2023 8:20 AM EDT 10/14/2023 8:30 AM EDT us Janet Vazquez MD LAB BLOOD ORDERABLES Final Re sult [facility] [address] [place] [address] from Last 3 Months or Most Recently Relevant to Health Maintenance [facility] MEDICARE REPLACEMENT [facility] MEDICARE REPLACEMENT [facility] MEDICARE REPLACEMENT [facility] MEDICARE REPLACEMENT [facility] MEDICARE REPLACEMENT [facility] MEDICARE REPLACEMENT [facility] MEDICARE REPLACEMENT Advance Directives For more information, please contact: [phone] (9AM - 5PM [facility], Sunday-Sunday) Documents on File Type Date Recorded 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 11/02/2023 1:33 PM * Full Code (Latest Code Status on File) Date Activated Date Inactivated Comments 10/09/2023 6:56 PM Question Answer Comments Code Status Confirmed With: Patient Healthcare Agents on File Name Relationship Healthcare Agent Relationshi p Communication Jennifer Ailyn Sister .Primary Health Care Agent (Proxy form on file) Care Teams Vault Service Mechanic Relationship Specialty Start Date End Date Theresa Nelson MD [address] [place] [address] [email or web address] PCP - General 07/05/17 Additional Source Comments The information contained in this document represents components of the legal health record. It is not the complete legal health record.[facility]
--- OUTSIDE RECORDS SUMMARY | 2025-03-03 19:05 | XMS_ITS | Encounter Summary ---
Author Organization [facility] Address [address] [place] [address] Phone Care Team Providers Care Automatic Paint Sprayer Operator Name Role Phone Theresa Nelson MD Primary Care Provider Encounter Details Date Type Department Care Team (Late st Contact Info) Description 02/16/2025 Procedure Pass [facility], Ct Scan - [facility] [address] [place] [address] Social History Tobacco Use Types Packs/Day Years [...] 02/17/2025 10:56 AM Aleena Montano RN * [place] Suicide Severity Rating Scale (Screener/Recent Self-Report) Question [...] on filedocumented in this encounter Care Teams Automatic Paint Sprayer Operator Relationship Specialty Start Date End Date Theresa Nelson MD [address] [place] [phone] [email or web address] PCP - General 07/05/17 documented as of this encounter Additional Source Comments The information contained in this document represents components of the legal health record. It is not the complete legal health record.[facility]
[2025-03-03 19:29] VITALS: BP 140/89; PULSE 90; RESP 18; O2SAT 97
[2025-03-03 20:23] VITALS: BP 143/90; PULSE 90; RESP 21; TEMP 36.4; O2SAT 97
[2025-03-03 20:49] LABS: Appearance Urine Clear; Glucose Urine UA Negative (Negative); PH 6.5 (5.0-9.0); Specific Gravity - Urine 1.020 (1.005-1.025); UMIC TRIGGER UACC YES
--- NOTE | 2025-03-03 21:15 | PC.NURSE ---
Addendum entered by Joyce Story RN 03/03/25 22:39: pts belongings noted to be left behind, called [facility], spoke with Jaylan who is on pts unit [address] [place] [address], stated he will let studio operations engineer in charge know the pts belongings are here and follow up when pts belongings will be picked up. Addendum entered by Joyce Story RN 03/03/25 21:39: [id number]-reattempt to call facility to give report no answer at this time. Original Note: attemptd to call nurse to nurse report at [facility] where pt resides, no answer. will reattempt.
[2025-03-03 22:26] VITALS: BP 143/90; PULSE 90; RESP 21; TEMP 36.4; O2SAT 97
== END 2025-03-03 22:31 ==
PROVIDERS: Emergency Provider Emergency Medicine; PCP Family Medicine
DX: R41.82 Altered mental status, unspecified (principal); F06.1 Catatonic disorder due to known physiological condition; F31.89 Other bipolar disorder; I82.409 Acute embolism and thrombosis of unspecified deep veins of unspecified lower extremity; Z03.818 Encounter for observation for suspected exposure to other biological agents ruled out
CPT/HCPCS: 51701; 70450; 71045; 80048; 80076; 81001; 82947; 83690; 83880; 84484; 85025; 87637; 93005; 99284; 99285

== ENCOUNTER → 2025-03-03 17:23 | Outpatient (BNV) | payer OTHER, SELFPAY | PROVIDERS: Emergency Provider Emergency Medicine; PCP Family Medicine; Visit Provider Radiology Diagnostic Radiology | DX: R90.82 White matter disease, unspecified (principal); R62.7 Adult failure to thrive | CPT/HCPCS: 70450; 71045 ==

== ENCOUNTER → 2025-03-03 17:23 | Outpatient (BNV) | payer OTHER, SELFPAY | PROVIDERS: Emergency Provider Emergency Medicine; PCP Family Medicine; Visit Provider Internal Medicine Cardiovascular Disease | DX: R41.82 Altered mental status, unspecified (principal) | CPT/HCPCS: 93010 ==

== ENCOUNTER 2025-03-15 23:12 | Emergency (ER) | payer OTHER, SELFPAY ==
[2025-03-15 23:20] VITALS: BP 118/56; PULSE 102
[2025-03-15 23:21] VITALS: BP 116/76; PULSE 81; RESP 17; TEMP 36.6; O2SAT 97; BMI 25.8
[2025-03-15 23:38] VITALS: BP 116/76; PULSE 81; RESP 16; TEMP 36.6; O2SAT 97
--- NOTE | 2025-03-15 23:47 | ED_ITS ---
HPI - General Adult General Chief complaint: Abdominal Pain Stated complaint: Failure to thrive Time Seen by Provider: 03/15/25 23:46 Source: patient Mode of arrival: ambulatory Limitations: no limitations History of Present Illness ED Provider: Eleuterio DÍAZ HPI narrative: The patient is a 69-year-old female with a history of MDD, bipolar disorder, anxiety, GERD, insomnia, and DVT, presenting to the ED via EMS from [facility] with staff reporting patient has been refusing to eat for the past 3-4 days and has not voided in the last 24 hours. The majority of HPI is obtained from EMS as the patient is largely noncompliant with providing HPI, stating she just wants to be left alone to sleep. Patient advised EMS and RN that she has abdominal pain but no chest pain, shortness of breath, or other symptoms. Upon this provider's interviewed the patient states she is experiencing ?pain everywhere?, reporting abdominal pain, back pain, and chest pain. Patient reports all these complaints are chronic over the past year. The patient denies any acute change in the symptoms. The patient states she admits not eating for the past few days, when asked why she simply states ?I do not want to?. Patient denies associated fever/chills, vomiting, or diarrhea. Patient arrives to the ED normotensive and afebrile, without tachycardia or hypoxia. Related Data Previous Rx's ?Medication ?Instructions ?Recorded benztropine 0.5 mg tablet 0.25 mg (1/2 x 0.5 mg) PO BI D 30 06/10/24 days #30 tabs docusate sodium 100 mg capsule 1 cap PO BID 30 days #6 0 caps 06/10/24 eszopiclone 3 mg tablet (Lunesta) 3 mg PO BEDTIME 30 d ays #30 tabs 06/10/24 gabapentin 300 mg capsule 600 mg (2 x 300 mg) PO BEDTI ME 30 06/10/24 days #60 caps hydroxyzine HCl 25 mg tablet 25 mg PO Q6H PRN Anxiety 30 days 06/10/24 #60 tabs loratadine 10 mg tablet 10 mg PO DAILY 30 days #30 t abs 06/10/24 omeprazole 20 mg capsule,delayed 20 mg PO BID 30 days #60 caps 06/10/24 release paliperidone palmitate 234 mg/1.5 234 mg (1.5 mL) IM Q 30D 30 days 06/10/24 mL intramuscular syringe (Invega #1.5 mL Sustenna) thiamine HCl (vitamin B1) 100 mg 100 mg PO BID 30 days #60 tabs 06/10/24 tablet (Vitamin B-1) trazodone 50 mg tablet 50 mg PO BEDTIME MRX1 PRN In somnia 06/10/24 30 days #60 tabs white petrolatum-mineral oil 1 appl topical BID 30 day s #5 grams 06/10/24 topical cream (Dermacerin (petrolatum-mineral oil) topical cream) paliperidone 9 mg tablet,extended 9 mg PO DAILY #30 ta bs 06/11/24 release 24 hr (Invega) Allergies Allergy/AdvReac Type Severity Reaction Status Date / Time bee pollen Allergy Severe Anaphylaxis Verified 03/15/25 23:32 levofloxacin (From Levaquin) Allergy Severe Itching Verified 03/15/25 23:32 enoxaparin (From Lovenox) Allergy Intermediate Rash Verified 03/15/25 23:32 Seasonal Allergies Allergy Mild Runny Nose Verified 03/15/25 23:32 venlafaxine (From Effexor) Allergy Mild Constipatio Verified 03/15/25 23:32 n Penicillins Allergy Unknown Unknown Verified 03/15/25 23:32 Review of Systems 2 Review of Systems: Yes all other systems are reviewed and are negative COUNT INCLUDES THE [facility] Past Medical History Medical History History of skin cancer Hx of bladder problems VITO (generalized anxiety disorder) Murmur, cardiac Hx of thyroid nodule Osteopenia Hx of skin cancer, basal cell Seasonal allergies Insomnia Constipation GERD (gastroesophageal reflux disease) Anxiety History of electroconvulsive therapy Bipolar 1 disorder Surgical History Hx of colonoscopy H/O elbow surgery History of back surgery Family History Family History Mother Basal cell carcinoma (BCC) in situ of skin Osteoporosis Hyperlipidemia Father CAD (coronary artery disease) Alcoholism Sister Osteoporosis Depression Brother Cancer of tongue Cancer of skin Social History Social History Household Members: Other Household Members Other:: Dog. Housing: Apartment Are you a primary geriatric care manager to a significant other at home: No Do you presently have visiting nurse or other home services: Yes Unable to assess alcohol history related to: Unable to respond Patient Tobacco Use Status: Never used Tobacco Tobacco use type: Cigarette Years Smoked: 30+, now vapes e-Cigarette/Vaping Use: Currently Using Second Hand Smoke Exposure: No Substance Use Type: Crack/Cocaine Advance Directives: Yes Advance Directives on File: Yes Advance Directives Date on File: 06/12/24 service: No Current occupational status: unemployed and retired 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 Sexual orientation: Straight/Heterosexual Physical Exam ED Vital Signs: Vital Signs - 24 hr 03/15/25 23:21 03/15/25 23:38 03/16/25 06:30 Temperature 97.9 F 97.9 F 97.4 F Pulse Rate 81 81 77 Respiratory Rate 17 16 20 Blood Pressure 116/76 116/76 119/75 Pulse Oximetry 97 97 96 Oxygen Delivery Method Room Air Room Air Room Air 03/16/25 07:30 Temperature Pulse Rate 73 Respiratory Rate 18 Blood Pressure 102/65 Pulse Oximetry 98 Oxygen Delivery Method BMI result Body Mass Index 25.8 CONSTITUTIONAL: The patient appears non-toxic, well nourished and in no acute distress. Vital signs as documented. HEAD: Atraumatic, normocephalic. EYES: EOMs grossly intact, pupils equal, conjunctiva clear, no exudate. ENT: Nares patent, no discharge. Airway patent, no audible stridor, visible mucosa is pink and moist without noted lesions. NECK: Trachea is midline, no obvious masses or gross abnormalities. CHEST: Symmetric movement, normal appearance. LUNGS: LS present and CTAB, no w/r/r. Non-labored work of breathing. CARDIAC: Regular Rhythm, S1/S2 appreciated, no murmurs, rubs or gallops. ABDOMEN: Abdomen soft and non-tender x4 quadrants, no palpable masses or organomegaly. : Deferred. EXTREMITIES: Normal tone, moves all extremities spontaneously without reported pain. No obvious acute injury or deformity noted. NEURO: Alert and oriented x3, CN II-XII appear grossly intact. Cerebellar Functioning grossly intact. No obvious sensory or motor deficits. Speech clear and appropriate. PSYCH: Agitated, oppositional affect, with poor eye contact, but otherwise fluid speech, with appropriate response to questioning. No reported suicidality or homicidality. Patient does not appear to be responding to internal stimuli. SKIN: Warm, dry, color appropriate, normal turgor. No rashes noted. Course Reevaluation(s) Reevaluation #1: 8:42 AM 03/16/2025 (Dr. Dario Ricks): Patient was medically cleared and was signed out to me pending crisis evaluation, however she has a section 21 she does not need crisis evaluation for evaluation to return to the facility, we will be discharging her Time: 08:42 Medical Decision Making Medical Decision Making MDM Narrative: 12:59 AM 03/16/2025 (Brandyn DÍAZ): Patient is a 69-year-old female presenting to the ED via EMS for evaluation of reported refusal to eat over the past 3-4 days while at [facility]. The patient was recently seen at this facility on 03/03/25 for evaluation of catatonia. The patient had established outpatient follow up for ECT at [facility], and was discharged back to [facility] at that time. The patient in the ED appears in no acute distress, vital signs are stable, exam is benign. The patient will be evaluated with laboratory evaluation and urinalysis. Pending unremarkable medical workup with patient will be ordered for care team consultation. Admission/Observation Consideration of admission/observation: Escalation of care including admission/observation considered Lab Data [facility] Lab Attestation statement: I reviewed the patient's lab results. 03/16/25 00:13 03/16/25 00:13 Labs: Lab Results 03/16/25 03/16/25 Range/Units 00:13 06:40 WBC 8.7 (4.8-10.8) X10*3/uL RBC 4.81 (4.20-5.50) X10*6/uL Hgb 14.8 (12.0-16.0) g/dl Hct 41.7 (37.0-47.0) % MCV 86.7 (80.0-98.0) fL MCH 30.8 (27.0-33.0) pg MCHC 35.5 H (31.0-35.0) g/dl RDW 12.8 (11.0-16.0) % Plt Count 259 (160-400) X10*3/uL MPV 8.7 L (9.4-12.3) fL Immature Gran % (Auto) 0.5 H (0.0-0.4) % Neut % (Auto) 67.5 (45-73) % Lymph % (Auto) 22.8 (20-40) % Clark % (Auto) 7.8 (2-11) % Eos % (Auto) 0.8 (0-4) % Baso % (Auto) 0.6 (0-2) % Lymph # (Auto) 2.0 (1.2-4.9) X10*3/uL Clark # (Auto) 0.7 (0.1-1.2) X10*3/uL Eos # (Auto) 0.1 (0.0-0.4) X10*3/uL Baso # (Auto) 0.1 (0.0-0.2) X10*3/uL Abs Immat Gran (auto) 0.04 H (0.00-0.03) X10*3/uL Absolute Neuts (auto) 5.9 (2.0-8.3) x10*3/uL Absolute Nucleated RBC 0.000 (0.0-0.012) X10*3/uL Nucleated RBC % (auto) 0.0 (0.0-0.2) /100WBC Sodium 139 (135-145) mmol/L Potassium 3.6 (3.3-5.1) mmol/L Chloride 105 (96-108) mmol/L Carbon Dioxide 21 L (22-29) mmol/L Anion Gap 17 (12-20) BUN 30 H (9-16) mg/dL Creatinine 0.76 (0.5-1.4) mg/dL Estim Creat Clear Calc 73.2 Estimated GFR > 60 Random Glucose 121 H (60-115) mg/dL Calcium 9.9 D (8.4-10.2) mg/dL Magnesium 2.0 (1.6-2.6) mg/dL Total Bilirubin 0.6 (0.0-1.0) mg/dL AST 30 (5-31) U/L ALT 11 (0-31) U/L Alkaline Phosphatase 109 (39-117) U/L Total Protein 7.0 (6.5-8.0) g/dL Albumin 4.1 (3.5-5.0) g/dL Urine Color Yellow Urine Appearance Cloudy Urine pH 6.0 (5.0-9.0) Ur Specific [place] >= 1.030 H (1.005-1.025) Urine Protein 30 (1+) H (Neg-Trace) mg/dL Urine Glucose (UA) Negative (Negative) mg/dL Urine Ketones >=80 (Negative) mg/dL Urine Blood Trace (Negative) Urine Nitrite Negative (Negative) Ur Leukocyte Esterase Small (1+) H (Negative) Urine RBC 0-2 (0-2) /HPF Urine WBC 11-20 (0-5) /HPF Ur Squamous Epith Cells 6-10 (0-2) /HPF Urine Bacteria 4+ (None Seen) Hyaline Casts 3-5 (0-2) /LPF External Record Review External record reviewed: Outpatient record Discharge Plan Discharge Clinical Impression: Decreased oral intake Patient Disposition: [facility] Additional Instructions: Patient's blood work urinalysis physical examination vital signs are reassuring, we will be discharged back to her facility without medical changes. There was no underlying medical evidence based on our evaluation for her refusing to eat. Continue to follow up with her providers. Prescriptions: No Action benztropine 0.5 mg Tablet 0.25 mg PO BID 30 Days Qty: 30 0RF trazodone 50 mg Tablet 50 mg PO BEDTIME MRX1 PRN (Reason: Insomnia) 30 Days Qty: 60 0RF gabapentin 300 mg Capsule 600 mg PO BEDTIME 30 Days Qty: 60 0RF hydroxyzine HCl 25 mg Tablet 25 mg PO Q6H PRN (Reason: Anxiety) 30 Days Qty: 60 0RF loratadine 10 mg Tablet 10 mg PO DAILY 30 Days Qty: 30 0RF Invega Sustenna 234 mg/1.5 mL Syringe 234 mg IM Q30D 30 Days Qty: 1.5 0RF omeprazole 20 mg Capsule,Delayed Release(Dr/Ec) 20 mg PO BID 30 Days Qty: 60 0RF Dermacerin(petrolatum-min.oil) Cream 1 appl topical BID 30 Days Qty: 5 0RF Protocol: Apply to: Apply to: face thiamine HCl (vitamin B1) [Vitamin B-1] 100 mg tablet 100 mg PO BID 30 Days Qty: 60 0RF docusate sodium 100 mg capsule 1 cap PO BID 30 Days Qty: 60 0RF eszopiclone [Lunesta] 3 mg tablet 3 mg PO BEDTIME 30 Days Qty: 30 0RF paliperidone [Invega] 9 mg tablet extended release 24 hr 9 mg PO DAILY Qty: 30 0RF Print Language: Estonian
--- OUTSIDE RECORDS SUMMARY | 2025-03-15 23:58 | XMS_ITS | Patient Health Record ---
Author Organization [facility] Address [address] [place] [address] Care Team Providers Care Paddock Judge Name Role Phone Omar Theresa Primary Care Provider Cesar Abebe Jr Unavailable [phone] Allergies Allergen (clinical drug ingredient) Drug/Non Drug Allergy documented on EMR Reaction Allergy Type Onset Date Status Penicillin Unknown Drug Allergy Active Levaquin rash Drug Allergy Active Reason For Referral No Information Medications Medication SIG (Take, Route, Frequency, Duration) Notes Start Date End Date Status Multi Vitamin/Minerals Orally Active Vitamin D Active Gabapentin Active Melatonin Active Famotidine 40 MG 1 tablet Orally Twic e a day Active Lactulose Active MiraLax (colon prep) 8.3 ounce ((238) grams mixed with Gatorade or Crystal Light orally begin at 5:00 p.m. the day before the procedure for 1 day 05/16/2019 Active SEROquel Active Docusate Sodium Acti ve Immunizations Vaccine Route Administration Date Status Comme nts Influenza Unknown 04/01/2019 Administered Problems Problem Type SNOMED Code ICD Code Onset Dates Problem Status W/U Status Risk Notes Problem 318215369 Esophageal reflu x (530.81) Active confirmed Problem 018943489 Colon cancer screening (Z12.11) Active confirmed Problem 316221463 Gastroesophageal reflux disease without esophagitis (K21.9) Active confirmed Problem 46718659 Drug-induced constipation (K59.03) Active confirmed Plan Of Treatment Future Test Test Name Order Date COLONOSCOPY 05/16/2019 Insurance Providers Payer Name Payer Address Payer Phone Subscriber Number Group Number Insured Name Patient Relationship to Insured Coverage Start Date Coverage End Date [facility] [address] [place] [address] [id number] KYLIE MORFIN Self - patient is the insured MEDICARE OF [place] [address] [place] [address] [id number] KYLIE MORFIN Self - patient is the insured MEDICAID OF [facility] [address] [place] [address] [id number] KYLIE MORFIN Self - patient is the insured Medical (General) History Medical History History ICD Code bipolar disorder 1 skin cancer esophageal reflux osteoarthritis constipation Surgical History Surgery Date(Month/Year) back surgery, kyphoplasty skin cancer removal on face
--- OUTSIDE RECORDS SUMMARY | 2025-03-15 23:59 | XMS_ITS | Clinical Summary ---
Author Organization [facility] Address [address] [place] [address] Phone Care Team Providers Care Planer Setup Operator Name Role Phone Theresa Nelson MD Primary Care Provider [phone] Allergies Active Allergy Reactions Criticality Noted Date [...] 02/20/2025 11:23 AM EDT Emergency [facility] [address] [place] [address] Hari Kaminski MD Kanter, Carolyn R, MD Brewer, Allison V, MD Andrade, Olyn Amanda, MD Savage, Justin G, DO Griffith, Andrew Thomas Liao, MD Devries, Miles Alaniz MD Discharge [facility]position: [facility] 02/16/2025 Procedure Pass [facility], Ct Scan - [address] [address] 02/16/2025 Procedure Pass [facility], Ct Scan - [address] [address] from Last 3 Months Immunizations Immunization Administration [...] BPM [facility] Atrial Rate 89 BPM [facility] MA Interval 136 ms [facility] QRS Duration 70 ms [facility] QT Interval 374 ms [facility] QTC Interval 455 ms [facility] P Mcdowell 48 degrees [facility] R Wave Mcdowell 32 degrees [facility] T Wave [place]cd[place] 16 degrees [facility] 02/18/2025 3:07 PM EDT 02/20/2025 11:34 PM EDT Narrative [facility] - 02/20/2025 11:34 PM EDT Normal sinus rhythm Low voltage QRS Borderline ECG When compared with ECG of 16-Feb-2025 20:13, No significant change was found Confirmed by Abdulkadir Dela Cruz ([id number]) on 02/20/2025 11:34:06 PM us Ariella Welch MD ECG ORDERABLES Final Res ult [facility] * (ABNORMAL) Urinalysis w/reflex Urine Culture (02/16/2025 10:34 PM EDT) COLOR Yellow Yellow [facility] CLARITY Clear [facility] GLUCOSE Negative Negative [facility] BILI Negative Negative [facility] KETONES 1+(A) Negative [facility] SPECIFIC GRAVITY 1.010 1.005 - 1.030 [facility] BLOOD Trace(A) Negative [facility] PH 8.0 5.0 - 8.0 [facility] Protein-UA Negative Negative [facility] NITRITE Negative Negative [facility] Leukocyte esterase, ur Negative Negative [facility] Urine (Urine) 02/16/2025 10: 34 PM EDT 02/16/2025 11:04 PM EDT us Hari Kaminski MD URINE ORDERABLES Final R esult [address] [address] * Toxicology screen, urine (02/16/2025 10:34 PM EDT) URINE CANNABINOIDS NONE DETECTED NONE DETECTED [facility] Comment:Cutoff: 50 ng/mL URINE COCAINE METAB NONE DETECTED NONE DETECTED [facility] Comment:Cutoff: 300 ng/mL URINE AMPHETAMINES NONE DETECTED NONE DETECTED [facility] Comment:Cutoff: 1000 ng/mL URINE METHADONE NONE DETECTED NONE DETECTED [facility] Comment:Cutoff: 300 ng/mL URINE OPIATES NONE DETECTED NONE DETECTED [facility] Comment:Cutoff: 300 ng/mL URINE PHENCYCLIDINE NONE DETECTED NONE DETECTED [facility] Comment:Cutoff: 25 ng/mL URINE OXYCODONE NONE DETECTED NONE DETECTED [facility] Comment:Cutoff: 300 ng/mL URINE BARBITURATES NONE DETECTED NONE DETECTED [facility] Comment:Cutoff: 200 ng/mL URINE BENZODIAZEPINE NONE DETECTED NONE DETECTED [facility] Comment:Cutoff: 200 ng/mL URINE BUPRENORPHINE NONE DETECTED NONE DETECTED [facility] Comment:Cutoff: 5 ng/mL Fentanyl, urine NONE DETECTED NONE DETECTED [facility] Comment: Cutoff: 5 ng/mL INTERPRETATION FOR TOXICOLOGY PANEL: These results are unconfirmed and should be used for Medical Treatment purposes only. Urine (Urine) 02/16/2025 10: 34 PM EDT 02/16/2025 11:04 PM EDT us Hari Kaminski MD URINE ORDERABLES Final R esult [facility] [address] [place] [address] * XR WRIST 3 OR MORE VIEWS [...] clinician's provided indication for this examination in [facility]: Pain; swelling and pain COMPARISON: Right forearm radiograph from October 24, 2023 Procedure Note Linwood Quinn MD - 02/17/2025 XR WRIST 3 OR MORE VIEWS (RIGHT) Referring clinician's provided indication for this examination in [facility]:Pain; swelling and pain COMPARISON: Right forearm radiograph [...] HS Gen5 <6 0 - 9 ng/L [facility] Blood 02/16/2025 9:49 PM EDT 02/16/2025 10:01 PM EDT us Hari Kaminski MD LAB BLOOD ORDERABLES Fin al Result Performing Organization Address City/[facility]/ZIP Co de Phone Number [address] [address] * Ethanol, blood (02/16/2025 8:37 PM EDT) ETHANOL <10 <10 mg/dL [facility] Blood 02/16/2025 8:37 PM EDT 02/16/2025 8:57 PM EDT us Hari Kaminski MD LAB BLOOD ORDERABLES Fin al Result Performing Organization Address [facility] Co de Phone Number [address] [address] * LFTs (hepatic panel) (02/16/2025 8:37 PM EDT) ALKALINE PHOSPHATASE 114 39 - 117 U/L [facility] TOTAL BILIRUBIN <0.2 0.0 - 1.2 mg/dL [facility] DIRECT BILIRUBIN <0.1 0.0 - 0.2 mg/dL [facility] Bilirubin (Indirect) NOT CALCULATED 0 - 1.5 mg/dL [facility] AST 17 0 - 37 U/L [facility] ALT 9 0 - 40 U/L [facility] TOTAL PROTEIN 7.3 6.5 - 8.0 g/dL [facility] ALBUMIN 4.4 3.9 - 4.8 g/dL [facility] GLOBULIN 2.9 1 - 4.8 g/dL [facility] A/G Ratio 1.52 1.00 - 4.80 RATIO [facility] Blood 02/16/2025 8:37 PM EDT 02/16/2025 8:57 PM EDT us Hari Kaminski MD LAB BLOOD ORDERABLES Fin al Result Performing Organization Address City/[facility]/ZIP Co de Phone Number [address] [address] * PT-INR (02/16/2025 8:37 PM EDT) PT 11.8 10.2 - 12.9 sec [facility] INR 1.0 0.9 - 1.1 [facility] Comment:Therapeutic range fo r oral Vitamin K antagonists: 2.0-3.5 Blood 02/16/2025 8:37 PM EDT 02/16/2025 8:57 PM EDT us Hari Kaminski MD LAB BLOOD ORDERABLES Fin al Result [facility] [address] [place] [address] * CBC and differential (02/16/2025 8:37 PM EDT) WBC 7.13 4.00 - 11.00 K/uL [facility] RBC 4.27 4.00 - 5.20 M/uL [facility] HGB 13.0 12.0 - 16.0 g/dL [facility] HCT 39.3 36.0 - 46.0 % [facility] PLT 287 150 - 450 K/uL [facility] MCV 92.0 80.0 - 100.0 fL [facility] MCH 30.4 27.0 - 31.0 pg [facility] MCHC 33.1 32.0 - 36.0 g/dL [facility] RDW 13.3 11.5 - 14.5 % [facility] MPV 8.5 8.4 - 12.0 fL [facility] NRBC 0.00 0.00 /100 WBCs [facility] ABSOLUTE NRBC 0.00 0.00 K/uL [facility] DIFF METHOD Auto [facility] NEUTS 65.2 48.0 - 76.0 % [facility] LYMPHS 25.8 18.0 - 41.0 % [facility] MONOS 7.6 4.0 - 11.0 % [facility] EOS 0.7 0.0 - 5.0 % [facility] BASOS 0.4 0.0 - 1.5 % [facility] Granulocytes, immature (%) 0.3 0.0 - 0.9 % [facility] ABSOLUTE NEUTS 4.65 1.92 - 7.60 K/uL [facility] ABSOLUTE LYMPHS 1.84 0.72 - 4.10 K/uL [facility] ABSOLUTE MONOS 0.54 0.16 - 1.10 K/uL [facility] ABSOLUTE EOS 0.05 0.00 - 0.50 K/uL [facility] ABSOLUTE BASOS 0.03 0.00 - 0.15 K/uL [facility] Granulocytes, immature 0.02 0.00 - 0.09 K/uL [facility] Blood 02/16/2025 8:37 PM EDT 02/16/2025 8:57 PM EDT us Hari Kaminski MD LAB BLOOD ORDERABLES Fin al Result Performing Organization Address [facility]/ZIP Co de Phone Number [address] [address] * Magnesium (02/16/2025 8:37 PM EDT) Pathologist [facility] MAGNESIUM 2.2 1.6 - 2.6 mg/dL [facility] Blood 02/16/2025 8:37 PM EDT 02/16/2025 8:57 PM EDT us Hari Kaminski MD LAB BLOOD ORDERABLES Fin al Result Performing Organization Address [facility]/ZIP Co de Phone Number [address] [address] * (ABNORMAL) Basic metabolic panel (02/16/2025 8:37 PM EDT) SODIUM 138 133 - 146 mmol/L [facility] CHLORIDE 103 96 - 108 mmol/L [facility] POTASSIUM 3.7 3.3 - 5.1 mmol/L [facility] CO2 23 21 - 35 mmol/L [facility] BUN 15 6 - 19 mg/dL [facility] CREATININE 0.70 0.5 - 1.5 mg/dL [facility] GLUCOSE 110(H) 70 - 99 mg/dL [facility] CALCIUM 9.9 8.4 - 10.3 mg/dL [facility] EGFR 95 >59 mL/min/1.7 3m2 [facility] Comment:Estimated glomerular filtration rate calculated using the CKD-EPI refit equation. ANION GAP 16 10 - 20 mmol/L [facility] Blood 02/16/2025 8:37 PM EDT 02/16/2025 8:57 PM EDT us Hari Kaminski MD LAB BLOOD ORDERABLES Fin al Result [facility] [address] [place] [address] * XR Chest Portable (02/16/2025 8:19 PM [...] CONTRAST (02/16/2025 8:02 PM EDT) MGB IMG BOTTOM HOOP DRIVER COMMENT No intracranial hemorrhage. No large vessel occlusion. [facility] Anatomical Region Laterality Modality Neck Computed Tomogra phy 02/16/2025 8:04 PM EDT Impressions 02/16/2025 8:44 PM EDT 1. No acute intracranial abnormality. 2. No acute vascular abnormality. A clinically significant result was initiated on 02/16/2025 8:11 PM, Message ID [id number]. ATTESTATION: I, Layne Harper as teaching physician, [...] clinician's provided indication for this examination in [facility]: *Neuro deficit, acute, stroke suspected; slurred speech, [...] was initiated on 02/16/2025 8:11 PM,Message ID [id number]. ATTESTATION: Layne Leahy as teaching physician, have reviewed theimages for this case and if necessary edited the report originally createdby Eder Chavez. Hari Kaminski MD [facility] CT HEAD/NECK Final R esult * CT HEAD (CODE STROKE) WITHOUT CONTRAST (02/16/2025 8:02 PM EDT) MGB IMG BOTTOM HOOP DRIVER COMMENT No intracranial hemorrhage. No large vessel occlusion. [facility] Anatomical Region Laterality Modality Head Computed Tomogra phy 02/16/2025 8:04 PM EDT Impressions 02/16/2025 8:44 PM EDT 1. No acute intracranial abnormality. 2. No acute vascular abnormality. A clinically significant result was initiated on 02/16/2025 8:11 PM, Message ID [id number]. ATTESTATION: Layne Leahy as teaching physician, have reviewed the images for this case and if necessary edited the report originally created by Eder Chavez. Narrative 02/16/2025 8:[address] HEAD (CODE STROKE) WITHOUT CONTRAST, CT ANGIO HEAD (CODE STROKE) W CONTRAST, CT ANGIO NECK W CONTRAST Referring clinician's provided indication for this examination in [facility]: * Neuro deficit, acute, stroke suspected; slurred [...] was initiated on 02/16/2025 8:11 PM,Message ID [id number]. ATTESTATION: I, Layne Harper as teaching physician, have reviewed theimages for this case and if necessary edited the report originally createdby Eder Chavez. us Hari Kaminski MD IMG CT HEAD/NECK Final R esult * (ABNORMAL) Lipid panel (10/14/2023 8:20 AM EDT) HDL 60 mg/dL [facility] Comment: Interpretation <40 mg/dL: Low HDL cholesterol (major risk factor for CHD) Greater than or equal to 60 mg/dL: High HDL cholesterol ( negative risk factor for CHD) HDL - cholesterol is affected by a number of factors, e.g. smoking, excerise, hormones, sex and age. CHOLESTEROL 241(H) 0 - 240 mg/dL [facility] TRIGLYCERIDES 76 30 - 160 mg/dL [facility] LDL 166(H) 50 - 129 mg/dL [facility] Comment: LDL levels in terms of risk for coronary heart disease: <100 mg/dL: Optimal 100-129 mg/dL: Near or above optimal 130-159 mg/dL: Borderline high 160-189 mg/dL: High >190 mg/dL: Very High CARDIAC RISK RATIO 4.0 3.3 - 4.4 [facility] Blood 10/14/2023 8:20 AM EDT 10/14/2023 8:30 AM EDT us Janet Vazquez MD LAB BLOOD ORDERABLES Final Re sult [facility] [address] [place] [address] from Last 3 Months or Most Recently Relevant to Health Maintenance Insurance [facility]EMENT [facility] MEDICARE [facility]PLACEMENT [facility] MEDICARE REPLACEMENT [facility] MEDICARE REPLACEMENT [facility] MEDIC[facility] MEDICARE REPLACEMENT [facility] MEDICARE REPLACEMENT [facility] MEDICARE REPLACEMENT Advance Directives For more information, please contact: [phone] (9AM - 5PM [facility], Sunday-Sunday) Documents on File Type Date Recorded Patient Inspector Outside [employer] Distribution Expl anation Healthcare Proxy 11/02/2023 1:33 PM * Full Code (Latest Code Status on File) Date Activated Date Inactivated Comments 10/09/2023 6:56 PM Question Answer Comments Code Status Confirmed With: Patient Healthcare Agents on File Name Relationship Healthcare Agent Relationshi p Communication Jennifer Ailyn Sister .Primary Health Care Agent (Proxy form on file) Care Teams Planer Setup Operator Relationship Specialty Start Date End Date Theresa Nelson MD [address] [place] [address] [email or web address] PCP - General 07/05/17 Additional Source Comments The information contained in this document represents components of the legal health record. It is not the complete legal health record.[facility]
--- OUTSIDE RECORDS SUMMARY | 2025-03-15 23:59 | XMS_ITS | Encounter Summary ---
Author Organization [facility] Address [address] [place] [address] [place] [address] Phone Care Team Providers Care Sales Engineer Account Manager Name Role Phone Theresa Nelson MD Primary Care Provider [phone] Encounter Details Date Type Department Care Team (Late st Contact Info) Description 10/26/2023 Procedure Pass [facility], [facility] [address] [place] [address] Social History Tobacco Use Types Packs/Day Years [...] on filedocumented in this encounter Care Teams Sales Engineer Account Manager Relationship Specialty Start Date End Date Theresa Nelson MD [address] [place] [address] [email or web address] PCP - General 07/05/17 documented as of this encounter Additional Source Comments The information contained in this document represents components of the legal health record. It is not the complete legal health record.[facility]
--- OUTSIDE RECORDS SUMMARY | 2025-03-15 23:59 | XMS_ITS | Encounter Summary ---
Author Organization [facility] Address [address] [facility] [address] [facility] [address] [place] [address] Phone Care Team Providers Care Desizing Machine Operator Name Role Phone Theresa Nelson MD Primary Care Provider Encounter Details Date Type Department Care Team (Late st Contact Info) Description 02/16/2025 Procedure Pass [facility], Ct Scan - [facility] [address] [place] [address] Social History Tobacco Use Types Packs/Day Years [...] 02/17/2025 10:56 AM Aleena Montano RN * [place] Suicide Severity Rating Scale (Screener/Recent Self-Report) Question [...] on filedocumented in this encounter Care Teams Desizing Machine Operator Relationship Specialty Start Date End Date Theresa Nelson MD [address] [place] [phone] [email or web address] PCP - General 07/05/17 documented as of this encounter Additional Source Comments The information contained in this document represents components of the legal health record. It is not the complete legal health record.[facility]
--- OUTSIDE RECORDS SUMMARY | 2025-03-15 23:59 | XMS_ITS | Encounter Summary ---
Author Organization [facility] Address [address] [facility] [address] [place] [address] Phone Care Team Providers Care Coffee Roaster Name Role Phone Theresa Nelson MD Primary Care Provider Encounter Details Date Type Department Care Team (Late st Contact Info) Description 02/16/2025 Procedure Pass [facility], Ct Scan - [facility] [address] [place] [address] Social History Tobacco Use Types Packs/Day Years [...] 02/17/2025 10:56 AM Aleena Montano RN * [place] Suicide Severity Rating Scale (Screener/Recent Self-Report) Question [...] on filedocumented in this encounter Care Teams Coffee Roaster Relationship Specialty Start Date End Date Theresa Nelson MD [address] [place] [phone] [email or web address] PCP - General 07/05/17 documented as of this encounter Additional Source Comments The information contained in this document represents components of the legal health record. It is not the complete legal health record.[facility]
[2025-03-16 00:17] LABS: MANUAL DIFF FLAG NO
[2025-03-16 00:19] LABS: Hematocrit 41.7 % (37.0-47.0); Hemoglobin 14.8 g/dl (12.0-16.0); Imm Gran Abs Auto 0.04 X10*3/uL (0.00-0.03); Imm Gran Pct Auto 0.5 % (0.0-0.4); Lymphocytes Absolute Auto 2.0 X10*3/uL (1.2-4.9); Mean Corpuscular HGB Conc 35.5 g/dl (31.0-35.0); Mean Corpuscular Hemoglobin 30.8 pg (27.0-33.0); Mean Corpuscular Volume 86.7 fL (80.0-98.0); NRBC Abs Auto 0.000 X10*3/uL (0.0-0.012); NRBC Pct Auto 0.0 /100WBC (0.0-0.2); Platelet Count 259 X10*3/uL (160-400); Red Blood Count 4.81 X10*6/uL (4.20-5.50); White Blood Count 8.7 X10*3/uL (4.8-10.8)
[2025-03-16 00:33] LABS: Alanine Aminotransferase 11 U/L (0-31); Albumin Level 4.1 g/dL (3.5-5.0); Alkaline Phosphatase 109 U/L (39-117); Anion Gap 17 (12-20); Aspartate Amino Transferase 30 U/L (5-31); Blood Urea Nitrogen 30 mg/dL (9-16); Calcium 9.9 mg/dL (8.4-10.2); Carbon Dioxide 21 mmol/L (22-29); Chloride 105 mmol/L (96-108); Creatinine Clr Calc Pharmacy 73.2; Estimated Glomerular Filt Rate > 60; Magnesium 2.0 mg/dL (1.6-2.6); Potassium 3.6 mmol/L (3.3-5.1); Sodium 139 mmol/L (135-145); Total Protein 7.0 g/dL (6.5-8.0)
--- NOTE | 2025-03-16 03:10 | PC.NURSE ---
pt is currently asleep, respirations even and unlabored spoke with Darrell cummins rn about the pt not having a one one assigned to her, pt is coming from [facility] on a [address], charge states that she spoke with someone at the [facility] and the pt is not one on one at the facility so charge states she does not feel like she requires a sitter
--- NOTE | 2025-03-16 06:01 | PC.NURSE ---
Sandy nurse number in case of questions [phone]
[2025-03-16 06:30] VITALS: BP 119/75; PULSE 77; RESP 20; TEMP 36.3; O2SAT 96
[2025-03-16 06:53] LABS: Appearance Urine Cloudy; Glucose Urine UA Negative (Negative); PH 6.0 (5.0-9.0); Specific Gravity - Urine >= 1.030 (1.005-1.025); UMIC TRIGGER UACC YES
--- NOTE | 2025-03-16 07:00 | PC.NURSE ---
pt is alert is able to state that its 2024 does not know the month, knows she is in [place], respirations even and unlabored, pt denies pain, did a bladder scan and >555 showed, pt did urinate on the commode after a little encouragement-voided 400ml of dark color urine, pr denies pain, pt keeps talking that she misses her dog Canelo and would like to go to [facility], when asked if she would like to said no, is sad because of her dog, pt changed over into the [facility] attire instead instead of the regular hospital attire
[2025-03-16 07:30] VITALS: BP 102/65; PULSE 73; RESP 18; O2SAT 98
--- NOTE | 2025-03-16 07:31 | PC.NURSE ---
Assumed care of patient. Pt is not talking to me, looking away. Pt sts she has pain but will not rate the pain or tell me where. RR even and unlabored, no visible s/s of distress.
--- NOTE | 2025-03-16 07:53 | PC.NURSE ---
attempted to get the pt to drink took one sip of apple juice then refused to drink more
--- NOTE | 2025-03-16 08:04 | PC.NURSE ---
spoke to kwame cummins rn for the day shift, about having a sitter for the pt, placido agrees that the pt is requiring a sitter since they are coming from [facility] on a [address], working on getting a sitter at this time
[2025-03-16 08:15] LABS: UACC Culture Trigger YES
--- NOTE | 2025-03-16 08:57 | PC.NURSE ---
report given to Mer[facility] torres at [facility]
[2025-03-16 10:36] VITALS: BP 118/81; PULSE 89; RESP 16; O2SAT 100
== END 2025-03-16 10:45 ==
PROVIDERS: Emergency Provider Emergency Medicine
DX: R62.7 Adult failure to thrive (principal); R10.2 Pelvic and perineal pain; Z79.899 Other long term (current) drug therapy
CPT/HCPCS: 36415; 80053; 81001; 83735; 85025; 87086; 87088; 99284

== ENCOUNTER 2025-03-20 11:57 | Emergency (ER) | payer OTHER, SELFPAY ==
--- NOTE | ~2025-03-20 | CT_ITS ---
EXAMINATION: CT HEAD WITHOUT CONTRAST CLINICAL INFORMATION: Fall with head strike COMPARISON: 03/03/2025 TECHNIQUE: Contiguous axial imaging was performed from the skull base to vertex without intravenous administration of contrast. This CT examination was performed using dose optimization techniques as appropriate, variously including the following: *Automated exposure control *Adjustment of mA and/or kV according to patient size (this includes techniques or standardized protocols for targeted exams where dose is matched to indication/reason for exam; i.e. extremities or head) *Use of iterative reconstruction technique FINDINGS: There is no acute ischemic change. Periventricular white matter hypodensities are similar to the prior examination. There is no intracranial hemorrhage. There is no mass-effect or midline shift. Basal cisterns and ventricles are within normal limits for age/cerebral volume. Orbits are symmetrical and unremarkable. Paranasal sinuses and mastoid air cells are pneumatized. There are no bony abnormalities. CT/CT head/brain wo IV con IMPRESSION: No acute intracranial abnormality. Chronic ischemic white matter changes. Electronically signed by: Raymond De Santiago MD 03/20/2025 02:03 PM EDT
--- NOTE | ~2025-03-20 | XR_ITS ---
EXAMINATION: XR CHEST CLINICAL INFORMATION: AMS COMPARISON: 03/03/2025 TECHNIQUE: 2 views of the chest were obtained. FINDINGS: Mildly coarse lung markings are noted in the left greater than right lung apex. On the lateral view, there is subtle increased density of the lung overlapping the lower thoracic spine not clearly identifiable on the frontal view Heart size is within normal limits. There is no pleural effusion. Chronic T12 fracture is present. L1 kyphoplasty is noted. XR/XR chest 2V IMPRESSION: Faint density in the posterior base on the lateral view could be related to a pneumonia or related to pulmonary vessels. Electronically signed by: Raymond De Santiago MD 03/20/2025 02:33 PM EDT RP
--- NOTE | ~2025-03-20 | XR_ITS ---
EXAMINATION: XR THORACIC SPINE CLINICAL INFORMATION: T1 fx on CT c spine COMPARISON: Same day CT C-spine TECHNIQUE: 3 views of the thoracic spine were obtained. FINDINGS: Again seen is mild wedge-shaped deformity of superior T1 endplate with endplate undulation anterosuperiorly. Mild to moderate superior endplate compression fracture is present at T3. Superior endplate compression fracture is evident at T12, only partially imaged on the lateral view There is methacrylate within L1 vertebral body. XR/XR thoracic spine 3V IMPRESSION: Age-indeterminate compression fractures at T1, T3, and T12. Chronic L1 compression fracture post kyphoplasty. Electronically signed by: Raymond De Santiago MD 03/20/2025 03:28 PM EDT
--- NOTE | ~2025-03-20 | CT_ITS ---
EXAMINATION: CT CERVICAL SPINE WITHOUT CONTRAST CLINICAL INFORMATION: Fall, head trauma COMPARISON: None available. TECHNIQUE: Axial imaging was performed from the base of the skull through T2 without IV contrast. Coronal and sagittal reformatted images were generated from the original axial data set. ALARA: The examination used one or more of the following radiation dose reduction techniques: Automated exposure control, iterative reconstruction, and/or adjustment of mA and/or KV. FINDINGS: There is no prevertebral soft tissue edema. C4-5 demonstrates moderate severe disc space narrowing with vacuum phenomenon and endplate ossified. C5-6 demonstrates moderate severe disc space narrowing with endplate irregularity and osteophytes. C6-7 demonstrates moderate disc space narrowing with vacuum phenomenon and endplate osteophytes. There are facet osteophytes at C7-T1 on the left. T1 has wedged appearance with irregularity of the anterosuperior endplate without visible fracture line but there is low bone mineral density. Lung apexes are clear. Soft tissues are unremarkable. CT/CT cervical spine wo IV con IMPRESSION: There is wedge-shaped deformity of T1. No visible fracture line is seen and no soft tissue swelling is noted favoring chronic. However, there is low bone mineral density and acute fracture is not entirely ruled out. Consider MRI for further evaluation if clinically indicated. Multilevel degenerative changes most intense at C4-5, C5-6, and C6-7. Electronically signed by: Raymond De Santiago MD 03/20/2025 01:59 PM EDT
[2025-03-20 12:09] VITALS: BP 101/73; BP 108/62; PULSE 102; PULSE 95; RESP 16; TEMP 36.8; O2SAT 96; O2SAT 98; BMI 22.5
--- NOTE | 2025-03-20 12:09 | ED_ITS ---
HPI - General Adult General Chief complaint: Altered Mental Status Stated complaint: AMS,FTT, FALL X 2,+COLLAR PER EMS Time Seen by Provider: 03/20/25 12:09 Source: patient, EMS, RN notes reviewed and old records reviewed Mode of arrival: EMS Limitations: altered mental status History of Present Illness ED Provider: Zan HPI narrative: Patient is a 69-year-old female with history of bipolar 1 disorder, GERD, status post cardiac catheterization, prior DVT of left leg presenting to the ED from [facility] for evaluation after two recent unwitnessed falls, increased confusion. She is at [facility] on a section 12, 10, 11, 21 for MDD, intrusive thoughts, auditory hallucinations. Patient unable to provide history, only stated her first name when assessed for orientation. Answers yes to physical complaints but unable to specify where. Arrives in c-collar from EMS. MD complaint: falls, AMS Related Data Previous Rx's ?Medication ?Instructions ?Recorded benztropine 0.5 mg tablet 0.25 mg (1/2 x 0.5 mg) PO BI D 30 06/10/24 days #30 tabs docusate sodium 100 mg capsule 1 cap PO BID 30 days #6 0 caps 06/10/24 eszopiclone 3 mg tablet (Lunesta) 3 mg PO BEDTIME 30 d ays #30 tabs 06/10/24 gabapentin 300 mg capsule 600 mg (2 x 300 mg) PO BEDTI ME 30 06/10/24 days #60 caps hydroxyzine HCl 25 mg tablet 25 mg PO Q6H PRN Anxiety 30 days 06/10/24 #60 tabs loratadine 10 mg tablet 10 mg PO DAILY 30 days #30 t abs 06/10/24 omeprazole 20 mg capsule,delayed 20 mg PO BID 30 days #60 caps 06/10/24 release paliperidone palmitate 234 mg/1.5 234 mg (1.5 mL) IM Q 30D 30 days 06/10/24 mL intramuscular syringe (Invega #1.5 mL Sustenna) thiamine HCl (vitamin B1) 100 mg 100 mg PO BID 30 days #60 tabs 06/10/24 tablet (Vitamin B-1) trazodone 50 mg tablet 50 mg PO BEDTIME MRX1 PRN In somnia 06/10/24 30 days #60 tabs white petrolatum-mineral oil 1 appl topical BID 30 day s #5 grams 06/10/24 topical cream (Dermacerin (petrolatum-mineral oil) topical cream) paliperidone 9 mg tablet,extended 9 mg PO DAILY #30 ta bs 06/11/24 release 24 hr (Invega) cefuroxime axetil 500 mg tablet 500 mg PO BID #14 tabs 03/20/25 Allergies Allergy/AdvReac Type Severity Reaction Status Date / Time bee pollen Allergy Severe Anaphylaxis Verified 03/20/25 12:13 levofloxacin (From Levaquin) Allergy Severe Itching Verified 03/20/25 12:13 enoxaparin (From Lovenox) Allergy Intermediate Rash Verified 03/20/25 12:13 Seasonal Allergies Allergy Mild Runny Nose Verified 03/20/25 12:13 venlafaxine (From Effexor) Allergy Mild Constipatio Verified 03/20/25 12:13 n Penicillins Allergy Unknown Unknown Verified 03/20/25 12:13 Review of Systems 2 Review of Systems: As per HPI Yes all other systems are reviewed and are negative Constitutional: Constitutional: Reports as per HPI Neurologic: Reports confusion Psychiatric: Psychiatric: Reports confusion [facility] Past Medical History Medical History History of skin cancer Hx of bladder problems VITO (generalized anxiety disorder) Murmur, cardiac Hx of thyroid nodule Osteopenia Hx of skin cancer, basal cell Seasonal allergies Insomnia Constipation GERD (gastroesophageal reflux disease) Anxiety History of electroconvulsive therapy Bipolar 1 disorder Surgical History Hx of colonoscopy H/O elbow surgery History of back surgery Family History Family History Mother Basal cell carcinoma (BCC) in situ of skin Osteoporosis Hyperlipidemia Father CAD (coronary artery disease) Alcoholism Sister Osteoporosis Depression Brother Cancer of tongue Cancer of skin Social History Social History Household Members: Other Household Members Other:: Dog. Housing: Apartment Are you a primary lead care manager to a significant other at home: No Do you presently have visiting nurse or other home services: Yes Unable to assess alcohol history related to: Unable to respond Patient Tobacco Use Status: Never used Tobacco Tobacco use type: Cigarette Years Smoked: 30+, now vapes Smoked in Last 30 Days: No e-Cigarette/Vaping Use: Currently Using Second Hand Smoke Exposure: No Use of substances other than those prescribed or required for medical reasons: No Substance Use Type: Crack/Cocaine Advance Directives: Yes Advance Directives on File: Yes Advance Directives Date on File: 06/12/24 Do you have a plan to hurt others: No Plan service: No Current occupational status: unemployed and retired 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 Sexual orientation: Straight/Heterosexual Physical Exam ED Vital Signs: Vital Signs - 24 hr 03/20/25 12:09 03/20/25 12:19 03/20/25 14:28 Temperature 98.2 F 98.2 F 97.3 F Pulse Rate 95 95 82 Respiratory Rate 16 16 16 Blood Pressure 101/73 101/73 136/86 Pulse Oximetry 96 96 100 Oxygen Delivery Method Room Air Room Air Room Air BMI result Body Mass Index 22.5 Vital signs have been reviewed and appear to be correct. Blood pressure normal. Heart rate normal. Respiratory rate normal. Temperature normal. Oxygen saturation normal. Const General: cooperative, no acute distress, alert, awake and confusion Nutritional Appearance: average body habitus Orientation/consciousness: oriented to person and confusion Limitations: altered mental status HENMT Head: Yes normocephalic and Yes atraumatic Ears: external ears normal General nose exam: Normal external nose present Face and sinus: Yes face symmetric Mouth: oropharynx normal and moist mucous membranes Throat: Yes uvula midline Eyes Pupils: Equal, round and reactive pupils present Neck Neck: Yes normal visual inspection, Yes no meningeal signs and Yes supple Resp Effort & Inspection: normal respiratory effort and able to speak in complete sentences Auscultation: clear to auscultation bilaterally Cardio Rate: regular rate Rhythm: regular rhythm Heart sounds: S1 normal heart sound present and S2 normal heart sound present GI Palpation (GI): Soft to palpation and nontender Auscultation: normoactive bowel sounds General: Yes no CVA tenderness Back/Spine/Pelvis Back: no CVA tenderness Cervical Spine: collar present Skin General skin exam: elasticity normal and turgor normal Neuro General: oriented to person, tone normal, moves all extremities, Normal light touch and pain sensation, no meningeal signs, no focal motor deficits, CN's II- XI intact bilaterally and confusion Cranial nerves: Yes Equal, round and reactive pupils present Cognition (Neuro): normal cognition Extrem General: Yes full ROM, Yes no pedal edema and Yes no calf tenderness Psych Mental Status: mental status grossly normal Affect: normal affect Thought process: Normal thought process present Medications Administered Discontinued Medications Generic Name Dose Route Start Last Admin Trade Name Crowq PRN Reason Stop Dose Admin Hydroxyzine HCl 25 mg 03/20/25 14:33 03/20/25 14:38 Hydroxyzine Hcl 25 Mg Tablet PO 03/20/25 14:34 25 mg ONCE ONE Administration Potassium Chloride 20 meq 03/20/25 15:11 03/20/25 15:22 Potassium Chloride Packet 20 Meq Packet PO 03/20/25 15:12 20 meq ONCE ONE Administration Medical Decision Making Medical Decision Making [facility] Narrative: Patient is a 69-year-old female with history of bipolar 1 disorder, GERD, status post cardiac catheterization, prior DVT of left leg presenting to the ED from [facility] for evaluation after two recent unwitnessed falls, increased confusion. On exam patient is awake, A+Ox3, VS WNL, afebrile, normal neurological exam without focal deficits, physical exam findings as above. Given reported symptoms and physical exam findings, initial differential includes but is not limited to ICH, skull or cervical vertebral fracture or subluxation, electrolyte abnormality, cardiac arrhythmia, drug or alcohol intoxication or withdrawal, metabolic encephalopathy. No focal deficits c/f CVA. Labs grossly within normal limits. CT head and c spine notable for no evidence of ICH, skull or cervical vertebral fracture, T1 deformity. Thoracic x-ray ordered My interpretation is in agreement with the radiologist's interpretation. Thoracic x-ray notable for age indeterminate compression fractures at T1, T3 and T12 as well as chronic L1 compression fracture post kyphoplasty. CXR notable for faint density in posterior base, do not suspect pneumonia as patient is without cough, fever, dyspnea. UA notable for 3+ leukocytes, 4+ bacteria, recent urine culture grew aerococcus urinae, which should be susceptible to a second generation cephalosprorin. Will discharge patient back to me or visit at this time. Differential Diagnosis Differential Diagnoses: The differential diagnosis associated with the presentation includes As per [facility] Admission/Observation Consideration of admission/observation: Escalation of care including admission/observation considered Patient would have been admitted to the hospital and transferred to appropriate facility had their clinical presentation warranted hospital admission. Consult Healthcare Provider Management of the patient was discussed with: Behavioral Health Provider Lab Data [facility] Lab Attestation statement: I reviewed the patient's lab results. As per [facility] 03/20/25 13:36 03/20/25 13:36 Labs: Lab Results 03/20/25 03/20/25 03/20/25 Range/Units 12:45 13:36 15:37 WBC 9.9 (4.8-10.8) X10*3/uL RBC 4.15 L (4.20-5.50) X10*6/uL Hgb 12.6 (12.0-16.0) g/dl Hct 35.5 L (37.0-47.0) % MCV 85.5 (80.0-98.0) fL MCH 30.4 (27.0-33.0) pg MCHC 35.5 H (31.0-35.0) g/dl RDW 13.1 (11.0-16.0) % Plt Count 232 (160-400) X10*3/uL MPV 9.3 L (9.4-12.3) fL Immature Gran % (Auto) 1.4 H (0.0-0.4) % Neut % (Auto) 76.2 H (45-73) % Lymph % (Auto) 11.7 L (20-40) % [place] % (Auto) 10.3 (2-11) % Eos % (Auto) 0.2 (0-4) % Baso % (Auto) 0.2 (0-2) % Lymph # (Auto) 1.2 (1.2-4.9) X10*3/uL [place] # (Auto) 1.0 (0.1-1.2) X10*3/uL Eos # (Auto) 0.0 (0.0-0.4) X10*3/uL Baso # (Auto) 0.0 (0.0-0.2) X10*3/uL Abs Immat Gran (auto) 0.14 H (0.00-0.03) X10*3/uL Absolute Neuts (auto) 7.5 (2.0-8.3) x10*3/uL Absolute Nucleated RBC 0.000 (0.0-0.012) X10*3/uL Nucleated RBC % (auto) 0.0 (0.0-0.2) /100WBC PT 11.9 (10.9-12.4) SEC INR 1.0 (0.9-1.1) Sodium 136 (135-145) mmol/L Potassium 3.2 L (3.3-5.1) mmol/L Chloride 104 (96-108) mmol/L Carbon Dioxide 21 L (22-29) mmol/L Anion Gap 14 (12-20) BUN 42 H (9-16) mg/dL Creatinine 1.01 (0.5-1.4) mg/dL Estim Creat Clear Calc 48.6 Estimated GFR 55 Random Glucose 105 (60-115) mg/dL Calcium 9.7 (8.4-10.2) mg/dL Magnesium 2.0 (1.6-2.6) mg/dL Total Bilirubin 0.6 (0.0-1.0) mg/dL AST 55 H (5-31) U/L ALT 18 (0-31) U/L Alkaline Phosphatase 104 (39-117) U/L Troponin I High Sens 6.2 D (<3.5-17.0) ng/L Total Protein 6.7 (6.5-8.0) g/dL Albumin 4.0 (3.5-5.0) g/dL Urine Color Yellow Urine Appearance Cloudy Urine pH 6.0 (5.0-9.0) Ur Specific [place] 1.015 (1.005-1.025) Urine Protein Trace (Neg-Trace) mg/dL Urine Glucose (UA) Negative (Negative) mg/dL Urine Ketones Trace (Negative) mg/dL Urine Blood Trace H (Negative) Urine Nitrite Negative (Negative) Ur Leukocyte Esterase Large (3+) H (Negative) Urine RBC 0-2 (0-2) /HPF Urine WBC 21-50 (0-5) /HPF Ur Squamous Epith Cells 3-5 (0-2) /HPF Other Crystals Present Urine Bacteria 4+ (None Seen) Hyaline Casts >20 (0-2) /LPF WBC Casts Present Urine Opiates Screen Not Detected (Not Detect) Ur Buprenorphine Scrn Not Detected (Not Detect) ng/mL Ur Oxycodone Screen Not Detected (Not Detect) ng/mL Urine Methadone Screen Not Detected (Not Detect) ng/mL Urine Fentanyl Screen Not Detected (Not Detect) Ur Barbiturates Screen Not Detected (Not Detect) Ur Phencyclidine Scrn Not Detected (Not Detect) Ur Amphetamines Screen Not Detected (Not Detect) U Benzodiazepines Scrn Not Detected (Not Detect) Urine Cocaine Screen Not Detected (Not Detect) U Marijuana (THC) Screen Not Detected (Not Detect) Ethyl Alcohol < 10 mg/dL COVID-19 (LUANNE) Negative (Negative) COVID-19 Clin Com See Note Influenza Type A (SHERIF) Negative (Negative) Influenza Type B (SHERIF) Negative (Negative) Influenza A & B Note See Note Independent Interpretation I performed an independent interpretation of an: EKG (sinus rhythm with PVCs, rate 94 bpm, inverted T waves in V3, V4, normal GA interval), Plain X-Ray and CT Scan Interpretation: CT head and c spine notable for no evidence of ICH, skull or cervical vertebral fracture, T1 deformity. Thoracic x-ray notable for age indeterminate compression fractures at T1, T3 and T12 as well as chronic L1 compression fracture post kyphoplasty. CXR notable for faint density in posterior base, do not suspect pneumonia as patient is without cough, fever, dyspnea. Radiology Impression Discussion of test interpretation with radiology: I have reviewed the radiologist's reading. Radiologist Impression: CT/CT cervical spine wo IV con IMPRESSION: There is wedge-shaped deformity of T1. No visible fracture line is seen and no soft tissue swelling is noted favoring chronic. However, there is low bone mineral density and acute fracture is not entirely ruled out. Consider MRI for further evaluation if clinically indicated. CT/CT head/brain wo IV con IMPRESSION: No acute intracranial abnormality. Chronic ischemic white matter changes. XR/XR chest 2V IMPRESSION: Faint density in the posterior base on the lateral view could be related to a pneumonia or related to pulmonary vessels. XR/XR thoracic spine 3V IMPRESSION: Age-indeterminate compression fractures at T1, T3, and T12. Chronic L1 compression fracture post kyphoplasty. Discharge Plan Discharge Clinical Impression: Urinary tract infection Patient Disposition: Xfer Inpatient Rehab Fac Transfer Details: return to [facility] Instructions: Urinary Tract Infection in Older Adults (ED) Additional Instructions: You have been evaluated in the emergency department today for a change in mental status. Your evaluation, including urinalysis, suggests that your symptoms are due to urinary tract infection. Please take your prescribed antibiotics for the full course of medication as directed. Please follow-up with your primary care provider within 2 days. Return to the emergency department if you experience fevers 100.4? F or greater, worsening or uncontrolled pain, vomiting, flank pain, or for any other concerning symptoms. Prescriptions: New cefuroxime axetil 500 mg tablet 500 mg PO BID Qty: 14 0RF No Action benztropine 0.5 mg Tablet 0.25 mg PO BID 30 Days Qty: 30 0RF trazodone 50 mg Tablet 50 mg PO BEDTIME MRX1 PRN (Reason: Insomnia) 30 Days Qty: 60 0RF gabapentin 300 mg Capsule 600 mg PO BEDTIME 30 Days Qty: 60 0RF hydroxyzine HCl 25 mg Tablet 25 mg PO Q6H PRN (Reason: Anxiety) 30 Days Qty: 60 0RF loratadine 10 mg Tablet 10 mg PO DAILY 30 Days Qty: 30 0RF Invega Sustenna 234 mg/1.5 mL Syringe 234 mg IM Q30D 30 Days Qty: 1.5 0RF omeprazole 20 mg Capsule,Delayed Release(Dr/Ec) 20 mg PO BID 30 Days Qty: 60 0RF Dermacerin(petrolatum-min.oil) Cream 1 appl topical BID 30 Days Qty: 5 0RF Protocol: Apply to: Apply to: face thiamine HCl (vitamin B1) [Vitamin B-1] 100 mg tablet 100 mg PO BID 30 Days Qty: 60 0RF docusate sodium 100 mg capsule 1 cap PO BID 30 Days Qty: 60 0RF eszopiclone [Lunesta] 3 mg tablet 3 mg PO BEDTIME 30 Days Qty: 30 0RF paliperidone [Invega] 9 mg tablet extended release 24 hr 9 mg PO DAILY Qty: 30 0RF Print Language: Luxembourgish
--- NOTE | 2025-03-20 12:10 | ECG_ITS ---
Test Reason : AMS Blood Pressure : */* mmHG Vent. Rate : 94 BPM Atrial Rate : 94 BPM P-R Int : 126 ms QRS Dur : 72 ms QT Int : 354 ms P-R-T Axes : 53 29 -24 degrees QTcB Int : 442 ms Sinus rhythm with Premature supraventricular complexes and with occasional Premature ventricular complexes Nonspecific T wave abnormality Abnormal ECG When compared with ECG of 03-Mar-2025 17:58, Premature ventricular complexes are now Present Premature supraventricular complexes are now Present Referred By: Kalpana Zuluaga Electronically Signed By: MARI ROTHMAN
[2025-03-20 12:19] VITALS: BP 101/73; PULSE 95; RESP 16; TEMP 36.8; O2SAT 96
--- OUTSIDE RECORDS SUMMARY | 2025-03-20 12:38 | XMS_ITS | Clinical Summary ---
Author Organization [facility] Address [address] [place] [address] Phone Care Team Providers Care Flask Fitter Name Role Phone Theresa Nelson MD Primary [...] 02/20/2025 11:23 AM EDT Emergency [facility] [address] [place] [address] Hari Kaminski MD Kanter, Carolyn R, MD Brewer, Allison V, MD Andrade, Olyn Amanda, MD Savage, Justin G, DO Griffith, Andrew Thomas Liao, MD Devries, Miles Alaniz MD [facility] 02/16/2025 Procedure Pass [facility], Ct Scan - [address] [address] 02/16/2025 Procedure Pass [facility], Ct Scan - [address] [address] from Last 3 Months Immunizations Immunization Administration [...] BPM [facility] Atrial Rate 89 BPM [facility] UT Interval 136 ms [facility] QRS Duration 70 ms [facility] QT Interval 374 ms [facility] QTC Interval 455 ms [facility] P [place] 48 degrees [facility] R Wave [place] 32 degrees [facility] T Wave [place] 16 degrees [facility] 02/18/2025 3:07 PM EDT [...] (02/16/2025 10:34 PM EDT) COLOR Yellow Yellow [facility] CLARITY Clear [facility] GLUCOSE Negative Negative [facility] BILI Negative Negative [facility] KETONES 1+(A) Negative [facility] SPECIFIC GRAVITY 1.010 1.005 - 1.030 [facility] BLOOD Trace(A) Negative [facility] PH 8.0 5.0 - 8.0 [facility] Protein-UA Negative Negative [facility] NITRITE Negative Negative [facility] Leukocyte esterase, ur Negative Negative [facility] Urine (Urine) 02/16/2025 10: 34 PM EDT 02/16/2025 11:04 PM EDT us Hari Kaminski MD URINE ORDERABLES Final R esult [address] [address] * Toxicology screen, urine (02/16/2025 10:34 PM EDT) URINE CANNABINOIDS NONE DETECTED NONE DETECTED [facility] Comment:Cutoff: 50 ng/mL URINE COCAINE METAB NONE DETECTED NONE DETECTED [facility] Comment:Cutoff: 300 ng/mL URINE AMPHETAMINES NONE DETECTED NONE DETECTED [facility] Comment:Cutoff: 1000 ng/mL URINE METHADONE NONE DETECTED NONE DETECTED [facility] Comment:Cutoff: 300 ng/mL URINE OPIATES NONE DETECTED NONE DETECTED [facility] Comment:Cutoff: 300 ng/mL URINE PHENCYCLIDINE NONE DETECTED NONE DETECTED [facility] Comment:Cutoff: 25 ng/mL URINE OXYCODONE NONE DETECTED NONE DETECTED [facility] Comment:Cutoff: 300 ng/mL URINE BARBITURATES NONE DETECTED NONE DETECTED [facility] Comment:Cutoff: 200 ng/mL URINE BENZODIAZEPINE NONE DETECTED NONE DETECTED [facility] Comment:Cutoff: 200 ng/mL URINE BUPRENORPHINE NONE DETECTED NONE DETECTED [facility] Comment:Cutoff: 5 ng/mL Fentanyl, urine NONE DETECTED NONE DETECTED [facility] Comment: Cutoff: 5 ng/mL INTERPRETATION FOR TOXICOLOGY PANEL: These results are unconfirmed and should be used for Medical Treatment purposes only. Urine (Urine) 02/16/2025 10: 34 PM EDT 02/16/2025 11:04 PM EDT us Hari Kaminski MD URINE ORDERABLES Final R esult [facility] [address] [place] [address] * XR WRIST 3 OR MORE VIEWS [...] provided indication for this examination in [facility]: Pain; swelling and pain COMPARISON: Right forearm radiograph from October 24, 2023 Procedure Note Linwood Quinn MD - 02/17/2025 XR WRIST 3 OR MORE VIEWS (RIGHT) Referring clinician's provided indication for this examination in [facility]:Pain; swelling and pain COMPARISON: Right forearm [...] HS Gen5 <6 0 - 9 ng/L [facility] Blood 02/16/2025 9:49 PM EDT 02/16/2025 10:01 PM EDT us Hari Kaminski MD LAB BLOOD ORDERABLES Fin al Result Performing Organization Address City/[facility]/ZIP Co de Phone Number [address] [address] * Ethanol, blood (02/16/2025 8:37 PM EDT) ETHANOL <10 <10 mg/dL [facility] Blood 02/16/2025 8:37 PM EDT 02/16/2025 8:57 PM EDT us Hari Kaminski MD LAB BLOOD ORDERABLES Fin al Result Performing Organization Address [facility] Co de Phone Number [address] [address] * LFTs (hepatic panel) (02/16/2025 8:37 PM EDT) ALKALINE PHOSPHATASE 114 39 - 117 U/L [facility] TOTAL BILIRUBIN <0.2 0.0 - 1.2 mg/dL [facility] DIRECT BILIRUBIN <0.1 0.0 - 0.2 mg/dL [facility] Bilirubin (Indirect) NOT CALCULATED 0 - 1.5 mg/dL [facility] AST 17 0 - 37 U/L [facility] ALT 9 0 - 40 U/L [facility] TOTAL PROTEIN 7.3 6.5 - 8.0 g/dL [facility] ALBUMIN 4.4 3.9 - 4.8 g/dL [facility] GLOBULIN 2.9 1 - 4.8 g/dL [facility] A/G Ratio 1.52 1.00 - 4.80 RATIO [facility] Blood 02/16/2025 8:37 PM EDT 02/16/2025 8:57 PM EDT us Hari Kaminski MD LAB BLOOD ORDERABLES Fin al Result Performing Organization Address City/[facility]/ZIP Co de Phone Number [address] [address] * PT-INR (02/16/2025 8:37 PM EDT) PT 11.8 10.2 - 12.9 sec [facility] INR 1.0 0.9 - 1.1 [facility] Comment:Therapeutic range fo r oral Vitamin K antagonists: 2.0-3.5 Blood 02/16/2025 8:37 PM EDT 02/16/2025 8:57 PM EDT us Hari Kaminski MD LAB BLOOD ORDERABLES Fin al Result [facility] [address] [place] [address] * CBC and differential (02/16/2025 8:37 PM EDT) WBC 7.13 4.00 - 11.00 K/uL [facility] RBC 4.27 4.00 - 5.20 M/uL [facility] HGB 13.0 12.0 - 16.0 g/dL [facility] HCT 39.3 36.0 - 46.0 % [facility] PLT 287 150 - 450 K/uL [facility] MCV 92.0 80.0 - 100.0 fL [facility] MCH 30.4 27.0 - 31.0 pg [facility] MCHC 33.1 32.0 - 36.0 g/dL [facility] RDW 13.3 11.5 - 14.5 % [facility] MPV 8.5 8.4 - 12.0 fL [facility] NRBC 0.00 0.00 /100 WBCs [facility] ABSOLUTE NRBC 0.00 0.00 K/uL [facility] DIFF METHOD Auto [facility] NEUTS 65.2 48.0 - 76.0 % [facility] LYMPHS 25.8 18.0 - 41.0 % [facility] MONOS 7.6 4.0 - 11.0 % [facility] EOS 0.7 0.0 - 5.0 % [facility] BASOS 0.4 0.0 - 1.5 % [facility] Granulocytes, immature (%) 0.3 0.0 - 0.9 % [facility] ABSOLUTE NEUTS 4.65 1.92 - 7.60 K/uL [facility] ABSOLUTE LYMPHS 1.84 0.72 - 4.10 K/uL [facility] ABSOLUTE MONOS 0.54 0.16 - 1.10 K/uL [facility] ABSOLUTE EOS 0.05 0.00 - 0.50 K/uL [facility] ABSOLUTE BASOS 0.03 0.00 - 0.15 K/uL [facility] Granulocytes, immature 0.02 0.00 - 0.09 K/uL [facility] Blood 02/16/2025 8:37 PM EDT 02/16/2025 8:57 PM EDT us Hari Kaminski MD LAB BLOOD ORDERABLES Fin al Result Performing Organization Address [facility]/ZIP Co de Phone Number [address] [address] * Magnesium (02/16/2025 8:37 PM EDT) Pathologist [facility] MAGNESIUM 2.2 1.6 - 2.6 mg/dL [facility] Blood 02/16/2025 8:37 PM EDT 02/16/2025 8:57 PM EDT us Hari Kaminski MD LAB BLOOD ORDERABLES Fin al Result Performing Organization Address [facility]/ZIP Co de Phone Number [address] [address] * (ABNORMAL) Basic metabolic panel (02/16/2025 8:37 PM EDT) SODIUM 138 133 - 146 mmol/L [facility] CHLORIDE 103 96 - 108 mmol/L [facility] POTASSIUM 3.7 3.3 - 5.1 mmol/L [facility] CO2 23 21 - 35 mmol/L [facility] BUN 15 6 - 19 mg/dL [facility] CREATININE 0.70 0.5 - 1.5 mg/dL [facility] GLUCOSE 110(H) 70 - 99 mg/dL [facility] CALCIUM 9.9 8.4 - 10.3 mg/dL [facility] EGFR 95 >59 mL/min/1.7 3m2 [facility] Comment:Estimated glomerular filtration rate calculated using the CKD-EPI refit equation. 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 No large vessel occlusion. [facility] Anatomical Region Laterality Modality Neck Computed Tomogra phy 02/16/2025 8:04 PM EDT Impressions 02/16/2025 8:44 PM EDT 1. No acute intracranial abnormality. 2. No acute vascular abnormality. A clinically significant result was initiated on 02/16/2025 8:11 PM, Message ID [id number]. ATTESTATION: I, Layne Harper as teaching physician, [...] provided indication for this examination in [facility]: *Neuro deficit, acute, stroke suspected; slurred [...] was initiated on 02/16/2025 8:11 PM,Message ID [id number]. ATTESTATION: Layne Leahy as teaching physician, have reviewed theimages for this case and if necessary edited the report originally createdby Eder Chavez. 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 No large vessel occlusion. [facility] Anatomical Region Laterality Modality Head Computed Tomogra phy 02/16/2025 8:04 PM EDT Impressions 02/16/2025 8:44 PM EDT 1. No acute intracranial abnormality. 2. No acute vascular abnormality. A clinically significant result was initiated on 02/16/2025 8:11 PM, Message ID [id number]. ATTESTATION: Layne Leahy as teaching physician, have reviewed the images for this case and if necessary edited the report originally created by Eder Chavez. Narrative 02/16/2025 8:[address] HEAD (CODE STROKE) WITHOUT CONTRAST, CT ANGIO HEAD (CODE STROKE) W CONTRAST, CT ANGIO NECK W CONTRAST Referring clinician's provided indication for this examination in [facility]: * Neuro deficit, acute, stroke suspected; [...] was initiated on 02/16/2025 8:11 PM,Message ID [id number]. ATTESTATION: I, Layne Harper as teaching physician, have reviewed theimages for this case and if necessary edited the report originally createdby Eder Chavez. us Hari Kaminski MD IMG CT HEAD/NECK Final R esult * (ABNORMAL) Lipid panel (10/14/2023 8:20 AM EDT) HDL 60 mg/dL [facility] Comment: Interpretation <40 mg/dL: Low HDL cholesterol (major risk factor for CHD) Greater than or equal to 60 mg/dL: High HDL cholesterol ( negative risk factor for CHD) HDL - cholesterol is affected by a number of factors, e.g. smoking, excerise, hormones, sex and age. CHOLESTEROL 241(H) 0 - 240 mg/dL [facility] TRIGLYCERIDES 76 30 - 160 mg/dL [facility] LDL 166(H) 50 - 129 mg/dL [facility] Comment: LDL levels in terms of risk for coronary heart disease: <100 mg/dL: Optimal 100-129 mg/dL: Near or above optimal 130-159 mg/dL: Borderline high 160-189 mg/dL: High >190 mg/dL: Very High CARDIAC RISK RATIO 4.0 3.3 - 4.4 [facility] Blood 10/14/2023 8:20 AM EDT 10/14/2023 8:30 AM EDT us Janet Vazquez MD LAB BLOOD ORDERABLES Final Re sult [facility] [address] [place] [address] from Last 3 Months or Most Recently Relevant to Health Maintenance [facility] MEDICARE REPLACEMENT [facility] MEDICARE REPLACEMENT [facility] MEDICARE [facility]PLACEMENT [facility] MEDICARE REPLACEMENT [facility] MEDICARE REPLACEMENT [facility] MEDICARE REPLACEMENT [facility] MEDICARE REPLACEMENT Advance Directives For more information, please contact: [phone] (9AM - 5PM [facility], Sunday-Sunday) Documents on File Type Date Recorded Patient Manager Distribution Expl anation Healthcare Proxy 11/02/2023 1:33 PM * Full Code (Latest Code Status on File) Date Activated Date Inactivated Comments 10/09/2023 6:56 PM Question Answer Comments Code Status Confirmed With: Patient Healthcare Agents on File Name Relationship Healthcare Agent Relationshi p Communication Jennifer Ailyn Sister .Primary Health Care Agent (Proxy form on file) Care Teams Flask Fitter Relationship Specialty Start Date End Date Theresa Nelson MD [address] [place] [address] [email or web address] PCP - General 07/05/17 Additional Source Comments The information contained in this document represents components of the legal health record. It is not the complete legal health record.[facility]
--- OUTSIDE RECORDS SUMMARY | 2025-03-20 12:38 | XMS_ITS | Encounter Summary ---
Author Organization [facility] Address [address] [place] [address] Phone Care Team Providers Care Business Center Attendant Name Role Phone Theresa Nelson MD Primary Care Provider Encounter Details Date Type Department Care Team (Late st Contact Info) Description 02/16/2025 Procedure Pass [facility], Ct Scan - [facility] [address] [place] [address] Social History Tobacco Use Types Packs/Day Years [...] 02/17/2025 10:56 AM Aleena Montano RN * [place] Suicide Severity Rating Scale (Screener/Recent Self-Report) Question [...] on filedocumented in this encounter Care Teams Business Center Attendant Relationship Specialty Start Date End Date Theresa Nelson MD [address] [place] [phone] [email or web address] PCP - General 07/05/17 documented as of this encounter Additional Source Comments The information contained in this document represents components of the legal health record. It is not the complete legal health record.[facility]
--- OUTSIDE RECORDS SUMMARY | 2025-03-20 12:39 | XMS_ITS | Encounter Summary ---
Author Organization [facility] Address [address] [place] [address] [place] [address] Phone Care Team Providers Care Bevel Operator Name Role Phone Theresa Nelson MD Primary Care Provider Encounter Details Date Type Department Care Team (Late st Contact Info) Description 10/26/2023 Procedure Pass [facility], [facility] [address] [place] [address] Social History Tobacco Use Types Packs/Day Years [...] on filedocumented in this encounter Care Teams Bevel Operator Relationship Specialty Start Date End Date Theresa Nelson MD [address] [place] [address] [email or web address] PCP - General 07/05/17 documented as of this encounter Additional Source Comments The information contained in this document represents components of the legal health record. It is not the complete legal health record.[facility]
--- OUTSIDE RECORDS SUMMARY | 2025-03-20 12:39 | XMS_ITS | Encounter Summary ---
Author Organization [facility] Address [address] [place] [address] Phone Care Team Providers Care Electrolog Operator Name Role Phone Theresa Nelson MD Primary Care Provider [phone] Encounter Details Date Type Department Care Team (Late st Contact Info) Description 02/16/2025 Procedure Pass [facility], Ct Scan - [facility] [address] [place] [address] Social History Tobacco Use Types Packs/Day Years [...] 02/17/2025 10:56 AM Aleena Montano RN * [place] Suicide Severity Rating Scale (Screener/Recent Self-Report) Question [...] on filedocumented in this encounter Care Teams Electrolog Operator Relationship Specialty Start Date End Date Theresa Nelson MD [address] [place] [phone] [email or web address] PCP - General 07/05/17 documented as of this encounter Additional Source Comments The information contained in this document represents components of the legal health record. It is not the complete legal health record.[facility]
[2025-03-20 13:12] LABS: COVID-19 Test Negative (Negative); IDNOW Serial# 55D5AD1C; IDNOW Serial# 58CA691E; Influenza B2 Negative (Negative)
[2025-03-20 13:18] LABS: Troponin-I High Sensitivity 6.2 ng/L (<3.5-17.0)
[2025-03-20 13:48] LABS: Hematocrit 35.5 % (37.0-47.0); Hemoglobin 12.6 g/dl (12.0-16.0); Imm Gran Abs Auto 0.14 X10*3/uL (0.00-0.03); Imm Gran Pct Auto 1.4 % (0.0-0.4); Lymphocytes Absolute Auto 1.2 X10*3/uL (1.2-4.9); Mean Corpuscular HGB Conc 35.5 g/dl (31.0-35.0); Mean Corpuscular Hemoglobin 30.4 pg (27.0-33.0); Mean Corpuscular Volume 85.5 fL (80.0-98.0); NRBC Abs Auto 0.000 X10*3/uL (0.0-0.012); NRBC Pct Auto 0.0 /100WBC (0.0-0.2); Platelet Count 232 X10*3/uL (160-400); Red Blood Count 4.15 X10*6/uL (4.20-5.50); White Blood Count 9.9 X10*3/uL (4.8-10.8)
[2025-03-20 14:00] LABS: Alanine Aminotransferase 18 U/L (0-31); Albumin Level 4.0 g/dL (3.5-5.0); Alkaline Phosphatase 104 U/L (39-117); Anion Gap 14 (12-20); Aspartate Amino Transferase 55 U/L (5-31); Blood Urea Nitrogen 42 mg/dL (9-16); Calcium 9.7 mg/dL (8.4-10.2); Carbon Dioxide 21 mmol/L (22-29); Chloride 104 mmol/L (96-108); Creatinine Clr Calc Pharmacy 48.6; Estimated Glomerular Filt Rate 55; Magnesium 2.0 mg/dL (1.6-2.6); Potassium 3.2 mmol/L (3.3-5.1); Sodium 136 mmol/L (135-145); Total Protein 6.7 g/dL (6.5-8.0)
[2025-03-20 14:09] LABS: INTERNATIONAL NORM RATIO 1.0 (0.9-1.1); Prothrombin Time 11.9 SEC (10.9-12.4)
[2025-03-20 14:28] VITALS: BP 136/86; PULSE 82; RESP 16; TEMP 36.3; O2SAT 100
[2025-03-20] MEDS: Potassium Chloride Packet 20 MEQ PACKET PO (15:22)
[2025-03-20 15:46] LABS: Appearance Urine Cloudy; Glucose Urine UA Negative (Negative); PH 6.0 (5.0-9.0); Specific Gravity - Urine 1.015 (1.005-1.025); UMIC TRIGGER UACC YES
[2025-03-20 15:54] LABS: Cannabinoid Screen Urine Not Detected (Not Detect)
[2025-03-20 16:24] LABS: Other Crystals Urine Present; UACC Culture Trigger YES
== END 2025-03-20 19:18 ==
PROVIDERS: Registered Nurse Emergency; Emergency Provider Emergency Medicine
DX: S09.90XA Unspecified injury of head, initial encounter (principal); N39.0 Urinary tract infection, site not specified; R41.82 Altered mental status, unspecified; R94.31 Abnormal electrocardiogram [ECG] [EKG]; F17.210 Nicotine dependence, cigarettes, uncomplicated; W19.XXXA Unspecified fall, initial encounter; Z91.81 History of falling; Y93.9 Activity, unspecified; Y92.9 Unspecified place or not applicable; Y99.8 Other external cause status; Z86.718 Personal history of other venous thrombosis and embolism; Z51.81 Encounter for therapeutic drug level monitoring; Z11.52 Encounter for screening for COVID-19
CPT/HCPCS: 70450; 71046; 72072; 72125; 80053; 80307; 81001; 83735; 84484; 85025; 85610; 87086; 87088; 87502; 87635; 93005; 99285

== ENCOUNTER → 2025-03-20 12:10 | Outpatient (BNV) | payer OTHER, SELFPAY | PROVIDERS: Emergency Provider Emergency Medicine; Visit Provider Internal Medicine | DX: I49.3 Ventricular premature depolarization (principal) | CPT/HCPCS: 93010 ==

== ENCOUNTER → 2025-03-20 12:10 | Outpatient (BNV) | payer OTHER, SELFPAY | PROVIDERS: Emergency Provider Emergency Medicine; Visit Provider Radiology Diagnostic Radiology | DX: Z04.3 Encounter for examination and observation following other accident (principal); M50.321 Other cervical disc degeneration at C4-C5 level; M50.322 Other cervical disc degeneration at C5-C6 level; M50.323 Other cervical disc degeneration at C6-C7 level; S09.90XA Unspecified injury of head, initial encounter; R90.82 White matter disease, unspecified; S32.019A Unspecified fracture of first lumbar vertebra, initial encounter for closed fracture; R91.8 Other nonspecific abnormal finding of lung field; W19.XXXA Unspecified fall, initial encounter | CPT/HCPCS: 70450; 71046; 72072; 72125 ==

== ENCOUNTER 2025-03-21 14:37 | Inpatient (IN) | payer OTHER, SELFPAY ==
--- NOTE | ~2025-03-21 | CT_ITS ---
CLINICAL HISTORY: altered mental status CT head without contrast Comparison: CT/REG/SR - CT HEAD WITHOUT IV CONTRAST - 03/20/25 13:[address]/REG/SR - CT HEAD/BRAIN WO IV CON - 03/03/25 17:34 EDT Findings: No acute intracranial hemorrhage, acute major vascular distribution infarct, intracranial mass, midline shift or hydrocephalus. No extra-axial fluid collection. Stable periventricular and subcortical white matter hypoattenuation, nonspecific, most frequently ascribed to chronic small vessel ischemic disease. Visualized orbits are within normal range. Visualized paranasal sinuses, and mastoid air cells are unremarkable. The cranium appears intact. Superficial soft tissue is unremarkable. Impression: Stable exam without acute intracranial finding. This document has been electronically signed by: Leanna Harper MD on 03/21/2025 16:36:57
--- NOTE | ~2025-03-21 | XR_ITS ---
CLINICAL HISTORY: sob 1 view chest x-ray Comparison: CR - XR CHEST 1V - 03/29/25 13:51 EDT Findings: Bibasilar discoid opacities/atelectasis, with improved aeration in the left lower lobe, overall improved prior. No significant pleural effusion or pneumothorax. Similar prominent/enlarged cardiac silhouette. Kyphoplasty cement noted in the lumbar vertebra. IMPRESSION: Improving exam from prior. This document has been electronically signed by: Landry Han MD on 04/03/2025 18:43:33
--- NOTE | ~2025-03-21 | XR_ITS ---
CLINICAL HISTORY: hypoxia 1 view chest x-ray Comparison: CR/DC/SR - XR CHEST 2 VIEWS - 03/20/25 14:18 EDT Findings: No pleural effusion. Mild opacity of the bilateral lung base. Normal size heart. No acute fracture. IMPRESSION: Mild atelectasis/infiltrate of the lung base. This document has been electronically signed by: Orestes Restrepo MD on 03/29/2025 15:07:12
[2025-03-21 14:43] VITALS: BP 130/92; PULSE 103; O2SAT 99
[2025-03-21 14:47] VITALS: BP 124/88; PULSE 92; RESP 15; TEMP 36.3; O2SAT 100; BMI 25.7
[2025-03-21 14:57] VITALS: BP 119/69; PULSE 98; RESP 18; TEMP 37.2; O2SAT 99
--- NOTE | 2025-03-21 15:00 | ECG_ITS ---
Test Reason : altered Blood Pressure : */* mmHG Vent. Rate : 96 BPM Atrial Rate : 96 BPM P-R Int : 104 ms QRS Dur : 74 ms QT Int : 326 ms P-R-T Axes : 9 48 10 degrees QTcB Int : 411 ms Sinus rhythm with short KS Nonspecific T wave abnormality Abnormal ECG When compared with ECG of 20-Mar-2025 12:34, Premature ventricular complexes are no longer Present Premature supraventricular complexes are no longer Present Referred By: Kathie Mcnair Electronically Signed By: MARI ROTHMAN
[2025-03-21 15:12] LABS: MANUAL DIFF FLAG NO
[2025-03-21 15:14] LABS: Hematocrit 36.9 % (37.0-47.0); Hemoglobin 13.2 g/dl (12.0-16.0); Imm Gran Abs Auto 0.09 X10*3/uL (0.00-0.03); Imm Gran Pct Auto 0.8 % (0.0-0.4); Lymphocytes Absolute Auto 1.3 X10*3/uL (1.2-4.9); Mean Corpuscular HGB Conc 35.8 g/dl (31.0-35.0); Mean Corpuscular Hemoglobin 30.8 pg (27.0-33.0); Mean Corpuscular Volume 86.2 fL (80.0-98.0); NRBC Abs Auto 0.000 X10*3/uL (0.0-0.012); NRBC Pct Auto 0.0 /100WBC (0.0-0.2); Platelet Count 269 X10*3/uL (160-400); Red Blood Count 4.28 X10*6/uL (4.20-5.50); White Blood Count 11.3 X10*3/uL (4.8-10.8)
--- OUTSIDE RECORDS SUMMARY | 2025-03-21 15:23 | XMS_ITS | Patient Health Record ---
Author Organization [facility] Address [address] [place] [address] Care Team Providers Care Computer Support Specialist Instructor Name Role Phone Omar Theresa Primary Care Provider Cesar Abebe Jr Unavailable Allergies Allergen (clinical drug ingredient) Drug/Non Drug [...] Problem Status W/U Status Risk Notes Problem 575956881 Esophageal reflu x (530.81) Active confirmed Problem 385710094 Colon cancer screening (Z12.11) Active confirmed Problem 793851665 Gastroesophageal reflux disease without esophagitis (K21.9) Active confirmed Problem 82748935 Drug-induced constipation (K59.03) Active confirmed Plan Of Treatment Future Test Test Name Order Date COLONOSCOPY 05/16/2019 Insurance Providers Payer Name Payer Address Payer Phone Subscriber Number Group Number Insured Name Patient Relationship to Insured Coverage Start Date Coverage End Date [facility] [address] [place], [place] [phone] [id number] KYLIE MORFIN Self - patient is the insured [place] [address] [place] [address] [phone] [id number] KYLIE MORFIN Self - patient is the insured MEDICAID OF [facility] [address] [place] [phone] [id number] KYLIE MORFIN Self - patient is the insured Medical (General) History Medical History History ICD Code bipolar disorder 1 skin cancer esophageal reflux osteoarthritis constipation Surgical History Surgery Date(Month/Year) back surgery, kyphoplasty skin cancer removal on face
--- OUTSIDE RECORDS SUMMARY | 2025-03-21 15:24 | XMS_ITS | Encounter Summary ---
Author Organization [facility] Address [address] [place] [address] [place] [phone] Phone Care Team Providers Care Sweater Operator Name Role Phone Theresa Nelson MD Primary Care Provider Encounter Details Date Type Department Care Team (Late st Contact Info) Description 10/26/2023 Procedure Pass [facility], [facility] [address] [place] [address] Social History Tobacco Use Types Packs/Day Years [...] on filedocumented in this encounter Care Teams Sweater Operator Relationship Specialty Start Date End Date Theresa Nelson MD [address] [place] [address] [email or web address] PCP - General 07/05/17 documented as of this encounter Additional Source Comments The information contained in this document represents components of the legal health record. It is not the complete legal health record.[facility]
--- OUTSIDE RECORDS SUMMARY | 2025-03-21 15:24 | XMS_ITS | Clinical Summary ---
Author Organization [facility] Address [address] [place] [address] Phone Care Team Providers Care Nitroglycerin Nitrator Operator Batch Name Role Phone Theresa Nelson MD Primary Care Provider [phone] Allergies Active Allergy Reactions Criticality Noted Date [...] 02/20/2025 11:23 AM EDT Emergency [facility] [address] [place] [address] Hari Kaminski MD Kanter, Carolyn R, MD Brewer, Allison V, MD Andrade, Olyn Amanda, MD Savage, Justin G, DO Griffith, Andrew Thomas Liao, MD Devries, Miles Alaniz MD Discharge Disposition: [facility] 02/16/2025 Procedure Pass [facility], Ct Scan - [address] [address] 02/16/2025 Procedure Pass [facility], Ct Scan - [address] [address] from Last 3 Months Immunizations Immunization Administration [...] BPM [facility] Atrial Rate 89 BPM [facility] WA Interval 136 ms [facility] QRS Duration 70 ms [facility] QT Interval 374 ms [facility] QTC Interval 455 ms [facility] P Carlos 48 degrees [facility] R Wave Carlos 32 degrees [facility] T Wave Carlos 16 degrees [facility] 02/18/2025 3:07 PM EDT [...] (02/16/2025 10:34 PM EDT) COLOR Yellow Yellow [facility] CLARITY Clear [facility] GLUCOSE Negative Negative [facility] BILI Negative Negative [facility] KETONES 1+(A) Negative [facility] SPECIFIC GRAVITY 1.010 1.005 - 1.030 [facility] BLOOD Trace(A) Negative [facility] PH 8.0 5.0 - 8.0 [facility] Protein-UA Negative Negative [facility] NITRITE Negative Negative [facility] Leukocyte esterase, ur Negative Negative [facility] Urine (Urine) 02/16/2025 10: 34 PM EDT 02/16/2025 11:04 PM EDT us Hari Kaminski MD URINE ORDERABLES Final R esult [address] [address] * Toxicology screen, urine (02/16/2025 10:34 PM EDT) URINE CANNABINOIDS NONE DETECTED NONE DETECTED [facility] Comment:Cutoff: 50 ng/mL URINE COCAINE METAB NONE DETECTED NONE DETECTED [facility] Comment:Cutoff: 300 ng/mL URINE AMPHETAMINES NONE DETECTED NONE DETECTED [facility] Comment:Cutoff: 1000 ng/mL URINE METHADONE NONE DETECTED NONE DETECTED [facility] Comment:Cutoff: 300 ng/mL URINE OPIATES NONE DETECTED NONE DETECTED [facility] Comment:Cutoff: 300 ng/mL URINE PHENCYCLIDINE NONE DETECTED NONE DETECTED [facility] Comment:Cutoff: 25 ng/mL URINE OXYCODONE NONE DETECTED NONE DETECTED [facility] Comment:Cutoff: 300 ng/mL URINE BARBITURATES NONE DETECTED NONE DETECTED [facility] Comment:Cutoff: 200 ng/mL URINE BENZODIAZEPINE NONE DETECTED NONE DETECTED [facility] Comment:Cutoff: 200 ng/mL URINE BUPRENORPHINE NONE DETECTED NONE DETECTED [facility] Comment:Cutoff: 5 ng/mL Fentanyl, urine NONE DETECTED NONE DETECTED [facility] Comment: Cutoff: 5 ng/mL INTERPRETATION FOR TOXICOLOGY PANEL: These results are unconfirmed and should be used for Medical Treatment purposes only. Urine (Urine) 02/16/2025 10: 34 PM EDT 02/16/2025 11:04 PM EDT us Hari Kaminski MD URINE ORDERABLES Final R esult [facility] [address] [place] [address] * XR WRIST 3 OR MORE VIEWS [...] HS Gen5 <6 0 - 9 ng/L [facility] Blood 02/16/2025 9:49 PM EDT 02/16/2025 10:01 PM EDT us Hari Kaminski MD LAB BLOOD ORDERABLES Fin al Result Performing Organization Address City/[facility]/ZIP Co de Phone Number [address] [address] * Ethanol, blood (02/16/2025 8:37 PM EDT) ETHANOL <10 <10 mg/dL [facility] Blood 02/16/2025 8:37 PM EDT 02/16/2025 8:57 PM EDT us Hari Kaminski MD LAB BLOOD ORDERABLES Fin al Result Performing Organization Address [facility] Co de Phone Number [address] [address] * LFTs (hepatic panel) (02/16/2025 8:37 PM EDT) ALKALINE PHOSPHATASE 114 39 - 117 U/L [facility] TOTAL BILIRUBIN <0.2 0.0 - 1.2 mg/dL [facility] DIRECT BILIRUBIN <0.1 0.0 - 0.2 mg/dL [facility] Bilirubin (Indirect) NOT CALCULATED 0 - 1.5 mg/dL [facility] AST 17 0 - 37 U/L [facility] ALT 9 0 - 40 U/L [facility] TOTAL PROTEIN 7.3 6.5 - 8.0 g/dL [facility] ALBUMIN 4.4 3.9 - 4.8 g/dL [facility] GLOBULIN 2.9 1 - 4.8 g/dL [facility] A/G Ratio 1.52 1.00 - 4.80 RATIO [facility] Blood 02/16/2025 8:37 PM EDT 02/16/2025 8:57 PM EDT us Hari Kaminski MD LAB BLOOD ORDERABLES Fin al Result Performing Organization Address City/[facility]/ZIP Co de Phone Number [address] [address] * PT-INR (02/16/2025 8:37 PM EDT) PT 11.8 10.2 - 12.9 sec [facility] INR 1.0 0.9 - 1.1 [facility] Comment:Therapeutic range fo r oral Vitamin K antagonists: 2.0-3.5 Blood 02/16/2025 8:37 PM EDT 02/16/2025 8:57 PM EDT us Hari Kaminski MD LAB BLOOD ORDERABLES Fin al Result [facility] [address] [place] [address] * CBC and differential (02/16/2025 8:37 PM EDT) WBC 7.13 4.00 - 11.00 K/uL [facility] RBC 4.27 4.00 - 5.20 M/uL [facility] HGB 13.0 12.0 - 16.0 g/dL [facility] HCT 39.3 36.0 - 46.0 % [facility] PLT 287 150 - 450 K/uL [facility] MCV 92.0 80.0 - 100.0 fL [facility] MCH 30.4 27.0 - 31.0 pg [facility] MCHC 33.1 32.0 - 36.0 g/dL [facility] RDW 13.3 11.5 - 14.5 % [facility] MPV 8.5 8.4 - 12.0 fL [facility] NRBC 0.00 0.00 /100 WBCs [facility] ABSOLUTE NRBC 0.00 0.00 K/uL [facility] DIFF METHOD Auto [facility] NEUTS 65.2 48.0 - 76.0 % [facility] LYMPHS 25.8 18.0 - 41.0 % [facility] MONOS 7.6 4.0 - 11.0 % [facility] EOS 0.7 0.0 - 5.0 % [facility] BASOS 0.4 0.0 - 1.5 % [facility] Granulocytes, immature (%) 0.3 0.0 - 0.9 % [facility] ABSOLUTE NEUTS 4.65 1.92 - 7.60 K/uL [facility] ABSOLUTE LYMPHS 1.84 0.72 - 4.10 K/uL [facility] ABSOLUTE MONOS 0.54 0.16 - 1.10 K/uL [facility] ABSOLUTE EOS 0.05 0.00 - 0.50 K/uL [facility] ABSOLUTE BASOS 0.03 0.00 - 0.15 K/uL [facility] Granulocytes, immature 0.02 0.00 - 0.09 K/uL [facility] Blood 02/16/2025 8:37 PM EDT 02/16/2025 8:57 PM EDT us Hari Kaminski MD LAB BLOOD ORDERABLES Fin al Result Performing Organization Address [facility]/ZIP Co de Phone Number [address] [address] * Magnesium (02/16/2025 8:37 PM EDT) Pathologist [facility] MAGNESIUM 2.2 1.6 - 2.6 mg/dL [facility] Blood 02/16/2025 8:37 PM EDT 02/16/2025 8:57 PM EDT us Hari Kaminski MD LAB BLOOD ORDERABLES Fin al Result Performing Organization Address [facility]/ZIP Co de Phone Number [address] [address] * (ABNORMAL) Basic metabolic panel (02/16/2025 8:37 PM EDT) SODIUM 138 133 - 146 mmol/L [facility] CHLORIDE 103 96 - 108 mmol/L [facility] POTASSIUM 3.7 3.3 - 5.1 mmol/L [facility] CO2 23 21 - 35 mmol/L [facility] BUN 15 6 - 19 mg/dL [facility] CREATININE 0.70 0.5 - 1.5 mg/dL [facility] GLUCOSE 110(H) 70 - 99 mg/dL [facility] CALCIUM 9.9 8.4 - 10.3 mg/dL [facility] EGFR 95 >59 mL/min/1.7 3m2 [facility] Comment:Estimated glomerular filtration rate calculated using the CKD-EPI refit equation. ANION GAP 16 10 - 20 mmol/L [facility] Blood 02/16/2025 8:37 PM EDT 02/16/2025 8:57 PM EDT us Hari Kaminski MD LAB BLOOD ORDERABLES Fin al Result [facility] [address] [place] [address] * XR Chest Portable (02/16/2025 8:19 PM [...] CONTRAST (02/16/2025 8:02 PM EDT) MGB IMG POULTRY PICKING MACHINE TENDER COMMENT No intracranial hemorrhage. No large vessel occlusion. [facility] Anatomical Region Laterality Modality Neck Computed Tomogra phy 02/16/2025 8:04 PM EDT Impressions 02/16/2025 8:44 PM EDT 1. No acute intracranial abnormality. 2. No acute vascular abnormality. A clinically significant result was initiated on 02/16/2025 8:11 PM, Message ID [id number]. ATTESTATION: I, Layne Harper as teaching physician, [...] was initiated on 02/16/2025 8:11 PM,Message ID [id number]. ATTESTATION: Layne Leahy as teaching physician, have reviewed theimages for this case and if necessary edited the report originally createdby Eder Chavez. Hari Kaminsik MD [facility] CT HEAD/NECK Final R esult * CT HEAD (CODE STROKE) WITHOUT CONTRAST (02/16/2025 8:02 PM EDT) MGB IMG POULTRY PICKING MACHINE TENDER COMMENT No intracranial hemorrhage. No large vessel occlusion. [facility] Anatomical Region Laterality Modality Head Computed Tomogra phy 02/16/2025 8:04 PM EDT Impressions 02/16/2025 8:44 PM EDT 1. No acute intracranial abnormality. 2. No acute vascular abnormality. A clinically significant result was initiated on 02/16/2025 8:11 PM, Message ID [id number]. ATTESTATION: Layne Leahy as teaching physician, have [...] was initiated on 02/16/2025 8:11 PM,Message ID [id number]. ATTESTATION: I, Layne Harper as teaching physician, have reviewed theimages for this case and if necessary edited the report originally createdby Eder Chavez. us Hari Kaminski MD IMG CT HEAD/NECK Final R esult * (ABNORMAL) Lipid panel (10/14/2023 8:20 AM EDT) HDL 60 mg/dL [facility] Comment: Interpretation <40 mg/dL: Low HDL cholesterol (major risk factor for CHD) Greater than or equal to 60 mg/dL: High HDL cholesterol ( negative risk factor for CHD) HDL - cholesterol is affected by a number of factors, e.g. smoking, excerise, hormones, sex and age. CHOLESTEROL 241(H) 0 - 240 mg/dL [facility] TRIGLYCERIDES 76 30 - 160 mg/dL [facility] LDL 166(H) 50 - 129 mg/dL [facility] Comment: LDL levels in terms of risk for coronary heart disease: <100 mg/dL: Optimal 100-129 mg/dL: Near or above optimal 130-159 mg/dL: Borderline high 160-189 mg/dL: High >190 mg/dL: Very High CARDIAC RISK RATIO 4.0 3.3 - 4.4 [facility] Blood 10/14/2023 8:20 AM EDT 10/14/2023 8:30 AM EDT us Janet Vazquez MD LAB BLOOD ORDERABLES Final Re sult [facility] [address] [place] [address] from Last 3 Months or Most Recently Relevant to Health Maintenance Insurance [facility] MED[facility]ARE REPLACEMENT [facility] MEDICARE [facility]PLACEMENT [facility] MEDICARE REPLACEMENT [facility] MEDICARE REPLACEMENT [facility] MEDICARE REPLACEMENT [facility] MEDICARE REPLACEMENT [facility] MEDICARE REPLACEMENT [facility] MEDICARE REPLACEMENT Advance Directives For more information, please contact: [phone] (9AM - 5PM [facility], Sunday-Sunday) Documents on File Type Date Recorded Patient Electroplater Helper Expl anation Healthcare Proxy 11/02/2023 1:33 PM * Full Code (Latest Code Status on File) Date Activated Date Inactivated Comments 10/09/2023 6:56 PM Question Answer Comments Code Status Confirmed With: Patient Healthcare Agents on File Name Relationship Healthcare Agent Relationshi p Communication Jennifer Ailyn Sister .Primary Health Care Agent (Proxy form on file) Care Teams Nitroglycerin Nitrator Operator Batch Relationship Specialty Start Date End Date Theresa Nelson MD [address] [place] [address] [email or web address] PCP - General 07/05/17 Additional Source Comments The information contained in this document represents components of the legal health record. It is not the complete legal health record.[facility]
--- OUTSIDE RECORDS SUMMARY | 2025-03-21 15:24 | XMS_ITS | Encounter Summary ---
Author Organization [facility] Address [address] [place] [address] Phone Care Team Providers Care Rf Design Engineer Name Role Phone Theresa Nelson MD Primary Care Provider Encounter Details Date Type Department Care Team (Late st Contact Info) Description 02/16/2025 Procedure Pass [facility], Ct Scan - [facility] [address] [place] [address] Social History Tobacco Use Types Packs/Day Years [...] 02/17/2025 10:56 AM Aleena Montano RN * [place] Suicide Severity Rating Scale (Screener/Recent Self-Report) Question [...] on filedocumented in this encounter Care Teams Rf Design Engineer Relationship Specialty Start Date End Date Theresa Nelson MD [address] [place] [phone] [email or web address] PCP - General 07/05/17 documented as of this encounter Additional Source Comments The information contained in this document represents components of the legal health record. It is not the complete legal health record.[facility]
--- OUTSIDE RECORDS SUMMARY | 2025-03-21 15:24 | XMS_ITS | Encounter Summary ---
Author Organization [facility] Address [address] [address] [place] [address] Phone Care Team Providers Care Contracts Advisor Name Role Phone Theresa Nelson MD Primary Care Provider [phone] Encounter Details Date Type Department Care Team (Late st Contact Info) Description 02/16/2025 Procedure Pass [facility], Ct Scan - [facility] [address] [place] [address] Social History Tobacco Use Types Packs/Day Years [...] 02/17/2025 10:56 AM Aleena Montano RN * [place] Suicide Severity Rating Scale (Screener/Recent Self-Report) Question [...] on filedocumented in this encounter Care Teams Contracts Advisor Relationship Specialty Start Date End Date Theresa Nelson MD [address] [place] [phone] [email or web address] PCP - General 07/05/17 documented as of this encounter Additional Source Comments The information contained in this document represents components of the legal health record. It is not the complete legal health record.[facility]
[2025-03-21 15:27] LABS: Alanine Aminotransferase 38 U/L (0-31); Albumin Level 4.3 g/dL (3.5-5.0); Alkaline Phosphatase 113 U/L (39-117); Anion Gap 16 (12-20); Aspartate Amino Transferase 107 U/L (5-31); Blood Urea Nitrogen 46 mg/dL (9-16); Calcium 9.9 mg/dL (8.4-10.2); Carbon Dioxide 20 mmol/L (22-29); Chloride 104 mmol/L (96-108); Creatinine Clr Calc Pharmacy 42.0; Estimated Glomerular Filt Rate 44; Magnesium 2.3 mg/dL (1.6-2.6); Potassium 4.3 mmol/L (3.3-5.1); Sodium 136 mmol/L (135-145); Total Protein 7.3 g/dL (6.5-8.0)
--- NOTE | 2025-03-21 15:32 | ED_ITS ---
HPI - General Adult General Chief complaint: General Medical Stated complaint: UTI,NOT TAKING MEDS,FEELS WARM FROM [facility] Time Seen by Provider: 03/21/25 14:54 Source: patient and EMS Mode of arrival: EMS Limitations: other (altered) History of Present Illness ED Provider: FABI CASTAÑEDA PA-C HPI narrative: 69-year-old female with past medical history significant for bipolar 1 disorder, GERD, s/p cardiac catheterization, prior DVT of LLE no longer on anticoagulation presents to the ED today via EMS from [facility] for evaluation of altered mental status. She is currently sectioned at [facility] for MDD, instrusive thoughts, and auditory hallucinations. Patient was evaluated in our ED yesterday status post recent unwitnessed falls with increased confusion. Her work up was essentially unremarkable, aside from a UTI. She appeared to be at her baseline and she was discharged back to [facility] on Ceftin. Patient reportedly returned to [facility] and has been refusing all medications, including her Ceftin. She has been refusing PO intake as well. Per nursing staff at facility, they state that patient is typically compliant with meds/ PO intake while at our facility and upon returning to [facility], refuses all treatment. They report concern as her infection is not being treated due to her refusals. There is no Fausto's order in place. On arrival, patient is following commands however largely nonpliant with providing HPI. Related Data Previous Rx's ?Medication ?Instructions ?Recorded benztropine 0.5 mg tablet 0.25 mg (1/2 x 0.5 mg) PO BI D 30 06/10/24 days #30 tabs docusate sodium 100 mg capsule 1 cap PO BID 30 days #6 0 caps 06/10/24 eszopiclone 3 mg tablet (Lunesta) 3 mg PO BEDTIME 30 d ays #30 tabs 06/10/24 gabapentin 300 mg capsule 600 mg (2 x 300 mg) PO BEDTI ME 30 06/10/24 days #60 caps hydroxyzine HCl 25 mg tablet 25 mg PO Q6H PRN Anxiety 30 days 06/10/24 #60 tabs loratadine 10 mg tablet 10 mg PO DAILY 30 days #30 t abs 06/10/24 omeprazole 20 mg capsule,delayed 20 mg PO BID 30 days #60 caps 06/10/24 release paliperidone palmitate 234 mg/1.5 234 mg (1.5 mL) IM Q 30D 30 days 06/10/24 mL intramuscular syringe (Invega #1.5 mL Sustenna) thiamine HCl (vitamin B1) 100 mg 100 mg PO BID 30 days #60 tabs 06/10/24 tablet (Vitamin B-1) trazodone 50 mg tablet 50 mg PO BEDTIME MRX1 PRN In somnia 06/10/24 30 days #60 tabs white petrolatum-mineral oil 1 appl topical BID 30 day s #5 grams 06/10/24 topical cream (Dermacerin (petrolatum-mineral oil) topical cream) paliperidone 9 mg tablet,extended 9 mg PO DAILY #30 ta bs 06/11/24 release 24 hr (Invega) cefuroxime axetil 500 mg tablet 500 mg PO BID #14 tabs 03/20/25 Allergies Allergy/AdvReac Type Severity Reaction Status Date / Time bee pollen Allergy Severe Anaphylaxis Verified 03/21/25 14:48 levofloxacin (From Levaquin) Allergy Severe Itching Verified 03/21/25 14:48 enoxaparin (From Lovenox) Allergy Intermediate Rash Verified 03/21/25 14:48 Seasonal Allergies Allergy Mild Runny Nose Verified 03/21/25 14:48 venlafaxine (From Effexor) Allergy Mild Constipatio Verified 03/21/25 14:48 n Penicillins Allergy Unknown Unknown Verified 03/21/25 14:48 Review of Systems 2 Review of Systems: Yes Unobtainable due to mental status PMFSH Past Medical History Attestation statement: The following information was validated with the patient. Source: old records reviewed and nursing notes reviewed Medical History History of skin cancer Hx of bladder problems VITO (generalized anxiety disorder) Murmur, cardiac Hx of thyroid nodule Osteopenia Hx of skin cancer, basal cell Seasonal allergies Insomnia Constipation GERD (gastroesophageal reflux disease) Anxiety History of electroconvulsive therapy Bipolar 1 disorder Surgical History Hx of colonoscopy H/O elbow surgery History of back surgery Family History Family History Mother Basal cell carcinoma (BCC) in situ of skin Osteoporosis Hyperlipidemia Father CAD (coronary artery disease) Alcoholism Sister Osteoporosis Depression Brother Cancer of tongue Cancer of skin Social History Social History Household Members: Other Household Members Other:: Dog. Housing: Apartment Are you a primary children's zoo caretaker to a significant other at home: No Do you presently have visiting nurse or other home services: Yes Unable to assess alcohol history related to: Unable to respond Patient Tobacco Use Status: Never used Tobacco Tobacco use type: Cigarette Years Smoked: 30+, now vapes Smoked in Last 30 Days: No e-Cigarette/Vaping Use: Currently Using Second Hand Smoke Exposure: No Use of substances other than those prescribed or required for medical reasons: No Substance Use Type: Crack/Cocaine Advance Directives: Yes Advance Directives on File: Yes Advance Directives Date on File: 06/12/24 Do you have a plan to hurt others: No Plan service: No Current occupational status: unemployed and retired 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 Sexual orientation: Straight/Heterosexual Physical Exam ED Vital Signs: Vital Signs - 24 hr 03/21/25 14:47 03/21/25 14:57 03/21/25 18:11 Temperature 97.3 F 99.0 F 98.3 F Pulse Rate 92 98 88 Respiratory Rate 15 18 18 Blood Pressure 124/88 119/69 141/82 H Pulse Oximetry 100 99 100 Oxygen Delivery Method Room Air Room Air Room Air BMI result Body Mass Index 25.7 Vital signs stable General: thin appearing Skin: Warm, dry, intact. No rashes or lesions. Head: Normocephalic, atraumatic. EENT: perrla. dry mucous membranes Cardiac: Chest wall symmetric. RRR Lungs: Normal respiratory effort without accessory muscle use. CTA bilaterally Abdomen: Soft, non-tender, non-distended. No rebound tenderness or guarding. Positive BS x4. Back: No midline spinous or paraspinal tenderness. No step off deformity. Ext: Upper and lower extremities atraumatic, without tenderness, deformity, swelling or erythema Neuro: follows commands, otherwise nonverbal, refusing to answer questions Course Course Course Narrative: Patient has a leukocytosis to 11.3. H&H stable. Chemistry without acute electrolyte abnormality requiring intervention. BUN is elevated to 46 with normal creatinine. urine is infected. ct head/brain without mass, bleed. > at this time, patient's presentation appears entirely psych related. I am not concerned about an acute change in mental status. she is following commands. She has a history of previous on chart review. > spoke with hospitalist dr. adkins who agrees with admission for IVF + IV antibiotics. Medications Administered Discontinued Medications Generic Name Dose Route Start Last Admin Trade Name Freq PRN Reason Stop Dose Admin Ceftriaxone Sodium 1 gm 03/21/25 17:19 03/21/25 18:15 Ceftriaxone Sodium 1 Gm Vial IVPUSH 03/21/25 17:20 1 gm ONCE ONE Administration Lactated Ringer's 1,000 mls @ 999 mls/hr 03/21/25 15:45 03/21/25 17:43 Lr IV 03/21/25 16:45 Infused .Q1H1M GRECIA Infusion Medical Decision Making Medical Decision Making [facility] Narrative: 69-year-old female with past medical history significant for bipolar 1 disorder, GERD, s/p cardiac catheterization, prior DVT of LLE no longer on anticoagulation presents to the ED today via EMS from [facility] for evaluation of altered mental status. vitals are stable. she is thin appearing. clinically dehydrated. PERRLA. no signs of trauma. Differential diagnosis includes anemia, electrolyte abnormality, dehydration, FTT, deconditioning, psychosis, UTI, metabolic encephalopathy Plan for labs, ekg, ct head, UA, re-evaluation. Differential Diagnosis Differential Diagnoses: The differential diagnosis associated with the presentation includes as above. Admission/Observation Consideration of admission/observation: Escalation of care including admission/observation considered patient will be admitted to medicine for treatment of dehydration and UTI with refusal to take PO abx. Consult Healthcare Provider Management of the patient was discussed with: Hospitalist (dr. adkins) Lab Data [facility] Lab Attestation statement: I reviewed the patient's lab results. as above. 03/21/25 15:09 03/21/25 15:09 Labs: Lab Results 03/21/25 03/21/25 Range/Units 15:09 16:46 WBC 11.3 H (4.8-10.8) X10*3/uL RBC 4.28 (4.20-5.50) X10*6/uL Hgb 13.2 (12.0-16.0) g/dl Hct 36.9 L (37.0-47.0) % MCV 86.2 (80.0-98.0) fL MCH 30.8 (27.0-33.0) pg MCHC 35.8 H (31.0-35.0) g/dl RDW 13.5 (11.0-16.0) % Plt Count 269 (160-400) X10*3/uL MPV 9.3 L (9.4-12.3) fL Immature Gran % (Auto) 0.8 H (0.0-0.4) % Neut % (Auto) 77.8 H (45-73) % Lymph % (Auto) 11.0 L (20-40) % Josephine % (Auto) 10.2 (2-11) % Eos % (Auto) 0.0 (0-4) % Baso % (Auto) 0.2 (0-2) % Lymph # (Auto) 1.3 (1.2-4.9) X10*3/uL Josephine # (Auto) 1.2 (0.1-1.2) X10*3/uL Eos # (Auto) 0.0 (0.0-0.4) X10*3/uL Baso # (Auto) 0.0 (0.0-0.2) X10*3/uL Abs Immat Gran (auto) 0.09 H (0.00-0.03) X10*3/uL Absolute Neuts (auto) 8.8 H (2.0-8.3) x10*3/uL Absolute Nucleated RBC 0.000 (0.0-0.012) X10*3/uL Nucleated RBC % (auto) 0.0 (0.0-0.2) /100WBC Sodium 136 (135-145) mmol/L Potassium 4.3 D (3.3-5.1) mmol/L Chloride 104 (96-108) mmol/L Carbon Dioxide 20 L (22-29) mmol/L Anion Gap 16 (12-20) BUN 46 H (9-16) mg/dL Creatinine 1.23 (0.5-1.4) mg/dL Estim Creat Clear Calc 42.0 Estimated GFR 44 Random Glucose 111 (60-115) mg/dL Calcium 9.9 (8.4-10.2) mg/dL Magnesium 2.3 (1.6-2.6) mg/dL Total Bilirubin 0.6 (0.0-1.0) mg/dL AST 107 H (5-31) U/L ALT 38 H (0-31) U/L Alkaline Phosphatase 113 (39-117) U/L Total Protein 7.3 (6.5-8.0) g/dL Albumin 4.3 (3.5-5.0) g/dL Urine Color Yellow Urine Appearance Cloudy Urine pH 5.5 (5.0-9.0) Ur Specific [place] 1.020 (1.005-1.025) Urine Protein 30 (1+) H (Neg-Trace) mg/dL Urine Glucose (UA) Negative (Negative) mg/dL Urine Ketones 15 (Negative) mg/dL Urine Blood Small (1+) H (Negative) Urine Nitrite Negative (Negative) Ur Leukocyte Esterase Small (1+) H (Negative) Urine RBC 3-5 H (0-2) /HPF Urine WBC 11-20 H (0-5) /HPF Ur Squamous Epith Cells 0-2 (0-2) /HPF Urine Bacteria 4+ (None Seen) Hyaline Casts 3-5 (0-2) /LPF Urine Opiates Screen Not Detected (Not Detect) Ur Buprenorphine Scrn Not Detected (Not Detect) ng/mL Ur Oxycodone Screen Not Detected (Not Detect) ng/mL Urine Methadone Screen Not Detected (Not Detect) ng/mL Urine Fentanyl Screen Not Detected (Not Detect) Ur Barbiturates Screen Not Detected (Not Detect) Ur Phencyclidine Scrn Not Detected (Not Detect) Ur Amphetamines Screen Not Detected (Not Detect) U Benzodiazepines Scrn Not Detected (Not Detect) Urine Cocaine Screen Not Detected (Not Detect) U Marijuana (THC) Screen Not Detected (Not Detect) Independent Interpretation I performed an independent interpretation of an: EKG and CT Scan Interpretation: ekg showing sinus rhythm, rate of 96 bpm, no acute ischemic changes or st elevations. ct head without bleed or mass Radiology Impression Discussion of test interpretation with radiology: I have reviewed the radiologist's reading. Radiologist Impression: Reason for Exam: altered mental status CLINICAL HISTORY: altered mental status CT head without contrast Comparison: CT/REG/SR - CT HEAD WITHOUT IV CONTRAST - 03/20/25 13:[address]/REG/SR - CT HEAD/BRAIN WO IV CON - 03/03/25 17:34 EDT Findings: No acute intracranial hemorrhage, acute major vascular distribution infarct, intracranial mass, midline shift or hydrocephalus. No extra-axial fluid collection. Stable periventricular and subcortical white matter hypoattenuation, nonspecific, most frequently ascribed to chronic small vessel ischemic disease. Visualized orbits are within normal range. Visualized paranasal sinuses, and mastoid air cells are unremarkable. The cranium appears intact. Superficial soft tissue is unremarkable. Impression: Stable exam without acute intracranial finding. This document has been electronically signed by: Leanna Harper MD on 03/21/2025 16:36:57 Independent Historian Clinical information obtained from an independent historian. History obtained from or confirmed by: EMS External Record Review External record reviewed: Inpatient record Prescription Management I considered prescription management with: Antibiotic Chronic Conditions Patient?s care impacted by: Other (bipolar disorder) Social Determinants Patient?s care significantly limited by Social Determinants of Health including: Other Social Determinant of Health Critical Care Time Critical Care Time Critical Care Time: Yes Total Critical Care Time: 37 Attestation: Critical care time in the amount of 37 minutes has been provided to the patient in terms of direct patient care, frequent reevaluation, consultation with hospitalist, review and interpretation of medical data and results, and management of potentially life-threatening conditions. This is all outside of any medical procedures. Discharge Plan Discharge Clinical Impression: Dehydration, UTI (urinary tract infection) Patient Disposition: Admitted As Inpatient Print Language: Chinese
[2025-03-21] MEDS: Lactated Ringers 1,000 ML 999 ML IV (16:02)
[2025-03-21 17:07] LABS: Appearance Urine Cloudy; Glucose Urine UA Negative (Negative); PH 5.5 (5.0-9.0); Specific Gravity - Urine 1.020 (1.005-1.025); UMIC TRIGGER UACC YES
[2025-03-21 17:37] LABS: Cannabinoid Screen Urine Not Detected (Not Detect)
[2025-03-21 18:04] LABS: UACC Culture Trigger YES
[2025-03-21 18:11] VITALS: BP 141/82; PULSE 88; RESP 18; TEMP 36.8; O2SAT 100
--- NOTE | 2025-03-21 19:10 | PM.IMHP ---
History of Present Illness Date of Service: 03/21/25 Attending physician on admission: Moreno Bledsoe Chief Complaint: UTI Pt is a 69 yo female currently nonverbal and unable to provide any HPI, PMH has been diagnosed with UTI in ED and request for admission has been made. 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 This aligner typewriter did speak to patient's, sister listed as primary contact Jennifer and patient has been at [facility] now for approximately 3 weeks. Patient originally seen in [facility] after patient called 911. Prior to that patient had a puppy but could no longer care for the puppy and the puppy was taken away. Patient appeared to have a breakdown and was calling sister incessantly regarding the puppy and apparently called 911 out of distress. Patient was transferred to [facility] on a section 12 from [facility] for MDD, intrusive thoughts and auditory hallucinations. [facility] on 03/16/2025 and was diagnosed with a UTI and was discharged back to [facility] on oral antibiotics. Initial concern was patient was not eating for 3-4 days prior to being seen in the ED. At that time, patient was verbal and was stating she had pain everywhere. Patient has refused oral antibiotics at [facility]. Patient then returned to the ED 03/20/2025 status post a fall with increased confusion. Workup in the ED was unremarkable aside from the known UTI. Patient was discharged back to [facility] and was started on Ceftin po and again patient refused antibiotics. Patient does not have a Salomon in place. Patient does not have a guardian. Patient is seen for admission and presents in a catatonic state. Patient is mute and appears to be in a state of stupor. Patient appears stiff lying on her back with minimal movement. Patient is making eye contact but does not respond appropriately. Patient appears to be able to protect her airway but risk for aspiration seems high. Patient has not received any benzodiazepines at this time. Per patient's sister Jennifer, patient had been on Seroquel and was doing very well for approximately 5 years until the recent incident with a puppy. At [facility], the psychiatrist had mentioned a new medication that they were considering but patient had not yet started because she was refusing oral medications. Patient currently has a one-to-one in place in the ED. Review of Systems Review of Systems: Yes Unobtainable due to mental status (Nonverbal appears to be in a catatonic state) PMFSH Medical History History of skin cancer Hx of bladder problems VITO (generalized anxiety disorder) Murmur, cardiac Hx of thyroid nodule Osteopenia Hx of skin cancer, basal cell Seasonal allergies Insomnia Constipation GERD (gastroesophageal reflux disease) Anxiety History of electroconvulsive therapy Bipolar 1 disorder Cognitive capacity: Nonverbal Functional capacity: bed bound Patient : No Family History Mother Basal cell carcinoma (BCC) in situ of skin Osteoporosis Hyperlipidemia Father CAD (coronary artery disease) Alcoholism Sister Osteoporosis Depression Brother Cancer of tongue Cancer of skin Surgical History Hx of colonoscopy H/O elbow surgery History of back surgery Social History Household Members: Other Household Members Other:: Dog. Housing: Apartment Are you a primary care management associate to a significant other at home: No Do you presently have visiting nurse or other home services: Yes Unable to assess alcohol history related to: Unable to respond Patient Tobacco Use Status: Never used Tobacco Tobacco use type: Cigarette Years Smoked: 30+, now vapes Smoked in Last 30 Days: No e-Cigarette/Vaping Use: Currently Using Second Hand Smoke Exposure: No Use of substances other than those prescribed or required for medical reasons: No Substance Use Type: Crack/Cocaine Advance Directives: Yes Advance Directives on File: Yes Advance Directives Date on File: 06/12/24 Do you have a plan to hurt others: No Plan Patient : No service: No Current occupational status: unemployed and retired 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 Sexual orientation: Straight/Heterosexual Ebola Risk: Travel/Contact With Anyone From Affected Area/s: No Has Patient Experienced Ebola Symptoms: No Meds Allergies Allergy/AdvReac Type Severity Reaction Status Date / Time bee pollen Allergy Severe Anaphylaxis Verified 03/21/25 14:48 levofloxacin (From Levaquin) Allergy Severe Itching Verified 03/21/25 14:48 enoxaparin (From Lovenox) Allergy Intermediate Rash Verified 03/21/25 14:48 Seasonal Allergies Allergy Mild Runny Nose Verified 03/21/25 14:48 venlafaxine (From Effexor) Allergy Mild Constipatio Verified 03/21/25 14:48 n Penicillins Allergy Unknown Unknown Verified 03/21/25 14:48 Physical Exam Vital Signs and Narrative: Vital Signs: Last Vital Signs Temp 98.3 F 03/21/25 18:11 Pulse 88 03/21/25 18:11 Resp 18 03/21/25 18:11 BP 141/82 H 03/21/25 18:11 Pulse Ox 100 03/21/25 18:11 O2 Del Method Room Air 03/21/25 18:11 BMI result Body Mass Index 25.7 Nonverbal in his state of stupor, body appears stiff lying supine position with no movement. Patient appears to be making direct eye contact with this aligner typewriter. Neuro: Unable to assess cranial nerves, unclear if patient can protect her airway EYES: PERRLA, sclerae nonicteric ENT: Lips are dry, ,oral mucosa dry , nares patent no epistaxis, dentition appeared to be in good repair Cardiac: S1 S2 RRR, no murmur, no JVD, no edema in Lower ext Pulmonary: lungs diminished bilaterally Abdominal: BS active in all 4 quadrants, no guarding, tenderness, rebounding MSK: Unable to assess strength : no CVA tenderness no bladder distension Extremities: no edema in lower extremities, PT and DP pulses palpable +2 Psych: mood flat, judgment and insight poor Skin: No new rashes or lesions Results Labs 03/21/25 15:09 03/21/25 15:09 Labs: Laboratory Results - last 24 hr 03/21/25 03/21/25 15:09 16:46 MCV 86.2 MCH 30.8 MCHC 35.8 H RDW 13.5 Plt Count 269 MPV 9.3 L Immature Gran % (Auto) 0.8 H Neut % (Auto) 77.8 H Lymph % (Auto) 11.0 L Arroyo % (Auto) 10.2 Eos % (Auto) 0.0 Baso % (Auto) 0.2 Lymph # (Auto) 1.3 [place]o # (Auto) 1.2 Eos # (Auto) 0.0 Baso # (Auto) 0.0 Abs Immat Gran (auto) 0.09 H Absolute Neuts (auto) 8.8 H Absolute Nucleated RBC 0.000 Nucleated RBC % (auto) 0.0 Anion Gap 16 Estim Creat Clear Calc 42.0 Estimated GFR 44 Random Glucose 111 Calcium 9.9 Magnesium 2.3 Total Bilirubin 0.6 AST 107 H ALT 38 H Alkaline Phosphatase 113 Total Protein 7.3 Albumin 4.3 Urine Color Yellow Urine Appearance Cloudy Urine pH 5.5 Ur Specific [place] 1.020 Urine Protein 30 (1+) H Urine Glucose (UA) Negative Urine Ketones 15 Urine Blood Small (1+) H Urine Nitrite Negative Ur Leukocyte Esterase Small (1+) H Urine RBC 3-5 H Urine WBC 11-20 H Ur Squamous Epith Cells 0-2 Urine Bacteria 4+ Hyaline Casts 3-5 Urine Opiates Screen Not Detected Ur Buprenorphine Scrn Not Detected Ur Oxycodone Screen Not Detected Urine Methadone Screen Not Detected Urine Fentanyl Screen Not Detected Ur Barbiturates Screen Not Detected Ur Phencyclidine Scrn Not Detected Ur Amphetamines Screen Not Detected U Benzodiazepines Scrn Not Detected Urine Cocaine Screen Not Detected U Marijuana (THC) Screen Not Detected ECG Attestation: I personally reviewed and interpreted this ECG as follows: (Sinus rhythm with a short TN 104, QTC 411) Prior ECG tracings: available for review Imaging Radiologist's Impressions: CT of the head Findings: No acute intracranial hemorrhage, acute major vascular distribution infarct, intracranial mass, midline shift or hydrocephalus. No extra-axial fluid collection. Stable periventricular and subcortical white matter hypoattenuation, nonspecific, most frequently ascribed to chronic small vessel ischemic disease. Visualized orbits are within normal range. Visualized paranasal sinuses, and mastoid air cells are unremarkable. The cranium appears intact. Superficial soft tissue is unremarkable. Impression: Stable exam without acute intracranial finding. Assessment and Plan (1) UTI (urinary tract infection): Qualifiers: Hematuria presence: without hematuria Urinary tract infection type: acute cystitis Qualified Code(s): N30.00 - Acute cystitis without hematuria Status: Acute Plan Pt is a 69 yo female currently nonverbal and unable to provide any HPI, PMH has been diagnosed with UTI in ED and request for admission has been made. After review of patient's medical chart patient has past medical history of UTI, bipolar 1 depression, osteoarthritis, status post cardiac catheterization, anxiety, GERD, insomnia, osteopenia, 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 Patient has been noncompliant with oral medications at [facility] and has been limited with oral intake nutritional strickland for over 1 week. Urinary tract infection Patient is started on ceftriaxone 1GM Q24H Urine culture pending Bladder scan 550, loving placed IV fluids with dextrose initiated as patient has been NPO for some time Tylenol for fever PRN, currently patient afebrile Altered mental status with hx of Bipolar 1 disorder LFTs mildly elevated we will check ammonia level but patient does not appear obtunded Concern for catatonia (stupor, mute, lying in same position stiff with minimal movement), psychiatry consulted and reached through tiger text - Per Dr. Lazcano, pt will be seen by Dr. Garza in the AM 1:[address] Decreased oral intake in regards to nutrition BMI stable at 25.7 Nutritional consultation requested Patient is started on D5 normal saline ST evaluation odered when appropriate History of DVT left lower extremity Patient is not on anticoagulation No evidence of DVT at this time Patient can not take Lovenox or heparin due to allergy/rash SCDs ordered GERD Protonix IV DVT prophylaxis: SCD, patient can not take heparin or Lovenox due to allergy/rash Med rec pending Full Code status Patient is currently under section 12 at [facility], does not have guardian in place or [facility] Stroke Does the patient have a stroke diagnosis?: No Reason for No Anti-thrombotic by Day Two: Drug declined by patient VTE Prior VTE?: No VTE Risk Level:: Medical - low VTE Device Contraindication: N/A - Device Ordered VTE Drug Contraindication: N/A - Med Ordered
[2025-03-21 19:33] VITALS: BP 135/83; PULSE 89; RESP 16; TEMP 37; O2SAT 100
--- NOTE | 2025-03-21 19:49 | PC.NURSE ---
Assumed care of pt from TAURUS Naqvi. Pt in bed alert not speaking or responding to t/w. Per Dianne that has been pt presentation all day. Rectal temp obtained., 98.6, vitals stable. Unsure of baseline at this time. Spoke with BRE Rosas who will order fluids and keep pt NPO at this time.
[2025-03-21 23:39] VITALS: BP 132/78; PULSE 82; RESP 16; TEMP 36.9; O2SAT 100
--- NOTE | 2025-03-21 23:45 | MHC.EDTECH ---
This tech took over care of pt at 2300, rounds and vitals completed, pt bladder scanned per hospitalist order, 599MLs in bladder, RN aware, pt is altered and unable to use the bathroom prior to scan, pt is high risk for falls, fall risk precautions placed. 1:1 sitter at bedside for safety
--- NOTE | 2025-03-22 01:47 | PC.NURSE ---
Pt had bladder scan 599ml, notified [place] [employer]INE[employer], order for loving catheter placed. 0145 loving cath #[id number] placed with the assist of tech and RN. Pt tolerated well. urine draining clear yellow urine.
--- NOTE | 2025-03-22 02:17 | PC.NURSE ---
This RN spoke with Adeline RN stewardess supervisor at [facility] to update on pt being medically admitted. Per Adeline pt has been at [facility] since February 20 for acute psychosis. She was sent to [facility] a couple of days ago for UTI and returned on a section 21 with PO abx. Pt refused to take PO abx at the facility and was sent yesterday for reports of AMS. Pt became verbally unresponsive and stopped talking which was not her baseline.
[2025-03-22 04:00] VITALS: BP 122/72; PULSE 79; RESP 16; TEMP 36.9; O2SAT 100
[2025-03-22 04:28] LABS: Ammonia 16 umol/L (13-55); MANUAL DIFF FLAG NO
[2025-03-22 04:30] LABS: Hematocrit 32.5 % (37.0-47.0); Hemoglobin 11.2 g/dl (12.0-16.0); Imm Gran Abs Auto 0.07 X10*3/uL (0.00-0.03); Imm Gran Pct Auto 0.9 % (0.0-0.4); Lymphocytes Absolute Auto 1.3 X10*3/uL (1.2-4.9); Mean Corpuscular HGB Conc 34.5 g/dl (31.0-35.0); Mean Corpuscular Hemoglobin 30.3 pg (27.0-33.0); Mean Corpuscular Volume 87.8 fL (80.0-98.0); NRBC Abs Auto 0.000 X10*3/uL (0.0-0.012); NRBC Pct Auto 0.0 /100WBC (0.0-0.2); Platelet Count 234 X10*3/uL (160-400); Red Blood Count 3.70 X10*6/uL (4.20-5.50); White Blood Count 7.6 X10*3/uL (4.8-10.8)
[2025-03-22 05:11] LABS: Alanine Aminotransferase 28 U/L (0-31); Albumin Level 3.4 g/dL (3.5-5.0); Alkaline Phosphatase 88 U/L (39-117); Anion Gap 13 (12-20); Aspartate Amino Transferase 80 U/L (5-31); Blood Urea Nitrogen 25 mg/dL (9-16); Calcium 8.3 mg/dL (8.4-10.2); Carbon Dioxide 22 mmol/L (22-29); Chloride 108 mmol/L (96-108); Creatinine Clr Calc Pharmacy 83.4; Estimated Glomerular Filt Rate > 60; Potassium 2.9 mmol/L (3.3-5.1); Sodium 140 mmol/L (135-145); Total Protein 5.7 g/dL (6.5-8.0)
--- NOTE | 2025-03-22 06:29 | PM.EVENT ---
Event Note Date of Service: 03/22/25 Event Note: K 2.9 with AM labs. Started IV supplementation and repeat K 1400. Pt is on telemetry. Pt also had retention 550 ccs and loving was placed. Time Spent With Patient Time: Total time managing care of this patient today ____ minutes.
[2025-03-22] MEDS: Potassium Chloride/H20 10 MEQ/100 ML PIGGYBACK 100 MEQ IV ×2 (06:38→07:45)
[2025-03-22] MEDS: 0.9 % Sodium Chloride Flush 3 ML SYRINGE IVFLUSH (06:39)
[2025-03-22 07:48] VITALS: BP 118/70; PULSE 72; RESP 15; O2SAT 100
[2025-03-22] MEDS: KCl 10 mEq in 5% Dex/0.45% Sod 10 MEQ/1,000 ML IV.SOLN 100 MEQ IVCONT ×2 (09:01→16:13)
--- NOTE | 2025-03-22 09:10 | P.PNIM_ITS ---
Subjective Subjective Date of Service: 03/22/25 Interval History: f/u on altered mental status, uti, bipolar disorder Physical Exam 2 Vital Signs: Vital Signs: Last Vital Signs Temp 98.5 F 03/22/25 04:00 Pulse 72 03/22/25 07:48 Resp 15 03/22/25 07:48 BP 118/70 03/22/25 07:48 Pulse Ox 100 03/22/25 07:48 O2 Del Method Room Air 03/22/25 07:48 BMI result Body Mass Index 25.7 Const: Other: alert,no distresss, constantly talking CVRRR lungs cta abd soft, nd, not ext no edema pysch:elevated mood, tangential Objective Data Active Medications Acetaminophen (Acetaminophen 325 Mg Tablet) 650 mg PO Q6H PRN PRN Reason: Pain, Mild 1-3,fever,headache Albuterol/Ipratropium (Albuterol/Iprat 2.5/0.5mg 3 Ml Ampul.Neb) 3 ml INHALE Q4H PRN PRN Reason: Shortness of Breath/Wheezing Calcium Carbonate (Calcium Carbonate 750 Mg Tab.Chew) 750 mg PO Q4H PRN PRN Reason: Heartburn Ceftriaxone Sodium (Ceftriaxone Sodium 1 Gm Vial) 1 gm IVPUSH Q24H [facility] Dextrose/Sodium Chloride (D5ns) 1,000 mls @ 100 mls/hr IVCONT .Q10H [facility] Last Admin: 03/22/25 06:39 Dose: Not Given Documented By: YAO Non-Admin Reason: Physician Held Med Potassium Chloride/Dextrose/Sod Cl (Kcl 10 Meq In 5% Dex/0.45% Sod) 10 meq in 1,000 mls @ 100 mls/hr IVCONT .Q10H [facility] Last Admin: 03/22/25 09:01 Dose: 100 mls/hr Documented By: JUDITH Magnesium Hydroxide (Milk Of Magnesia 30 Ml Oral.Susp) 30 ml PO DAILY PRN PRN Reason: Constipation Melatonin (Melatonin 3 Mg Tablet) 6 mg PO BEDTIME PRN PRN Reason: Insomnia Ondansetron HCl (Ondansetron Hcl 4 Mg/2 Ml Vial) 4 mg IVPUSH Q8H PRN PRN Reason: Nausea and Vomiting Pantoprazole Sodium (Pantoprazole Sodium 40 Mg/10 Ml Vial) 40 mg IVPUSH DAILY@0630 [facility] Last Admin: 03/22/25 06:38 Dose: 40 mg Documented By: YAO Polyethylene Glycol (Polyethylene Glycol 3350 17 Gm Powd.Pack) 17 gm PO DAILY PRN PRN Reason: Constipation Senna (Sennosides 8.6 Mg Tablet) 17.2 mg PO BEDTIME [facility] Last Admin: 03/21/25 21:25 Dose: Not Given Documented By: YAO Non-Admin Reason: NPO Sodium Chloride (0.9 % Sodium Chloride Flush 3 Ml Syringe) 3 ml IVFLUSH QSHIFT [facility] Last Admin: 03/22/25 07:48 Dose: Not Given Documented By: GABINO Non-Admin Reason: IV Running Labs 03/22/25 04:12 03/22/25 04:12 Labs: Laboratory Results - last 24 hr 03/21/25 03/21/25 03/22/25 15:09 16:46 04:12 MCV 86.2 87.8 MCH 30.8 30.3 MCHC 35.8 H 34.5 RDW 13.5 13.4 Plt Count 269 234 MPV 9.3 L 9.2 L Immature Gran % (Auto) 0.8 H 0.9 H Neut % (Auto) 77.8 H 67.9 Lymph % (Auto) 11.0 L 17.5 L Clay % (Auto) 10.2 12.4 H Eos % (Auto) 0.0 0.9 Baso % (Auto) 0.2 0.4 Lymph # (Auto) 1.3 1.3 Clay # (Auto) 1.2 0.9 Eos # (Auto) 0.0 0.1 Baso # (Auto) 0.0 0.0 Abs Immat Gran (auto) 0.09 H 0.07 H Absolute Neuts (auto) 8.8 H 5.2 Absolute Nucleated RBC 0.000 0.000 Nucleated RBC % (auto) 0.0 0.0 Anion Gap 16 13 Estim Creat Clear Calc 42.0 83.4 Estimated GFR 44 > 60 Random Glucose 111 121 H Calcium 9.9 8.3 L D Magnesium 2.3 Total Bilirubin 0.6 0.6 AST 107 H 80 H ALT 38 H 28 Alkaline Phosphatase 113 88 Ammonia 16 Total Protein 7.3 5.7 L Albumin 4.3 3.4 L Urine Color Yellow Urine Appearance Cloudy Urine pH 5.5 Ur Specific [place] 1.020 Urine Protein 30 (1+) H Urine Glucose (UA) Negative Urine Ketones 15 Urine Blood Small (1+) H Urine Nitrite Negative Ur Leukocyte Esterase Small (1+) H Urine RBC 3-5 H Urine WBC 11-20 H Ur Squamous Epith Cells 0-2 Urine Bacteria 4+ Hyaline Casts 3-5 Urine Opiates Screen Not Detected Ur Buprenorphine Scrn Not Detected Ur Oxycodone Screen Not Detected Urine Methadone Screen Not Detected Urine Fentanyl Screen Not Detected Ur Barbiturates Screen Not Detected Ur Phencyclidine Scrn Not Detected Ur Amphetamines Screen Not Detected U Benzodiazepines Scrn Not Detected Urine Cocaine Screen Not Detected U Marijuana (THC) Screen Not Detected Microbiology Microbiology Results: Microbiology 03/21/25 16:46 Urine Culture - Preliminary Urine clean catch - Clean Catch Midstream Culture in progress. Assessment and Plan (1) Bipolar 1 disorder: Status: Acute (2) Anxiety: Status: Acute (3) Bipolar 1 disorder, depressed, severe: Status: Acute Plan Pt is a 69 yo female currently nonverbal and unable to provide any HPI, PMH has been diagnosed with UTI in ED and request for admission has been made. After review of patient's medical chart patient has past medical history of UTI, bipolar 1 depression, osteoarthritis, status post cardiac catheterization, anxiety, GERD, insomnia, osteopenia, 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 Patient has been noncompliant with oral medications at [facility] and has been limited with oral intake nutritional strickland for over 1 week. Urinary tract infection continue ceftriaxone, follow cultures Decompensated Bipolar, with alter mental, very talkative, no evidence catanonia as documented elsewhere has been refusing meds Psych consult and likely need inpatient hospitalization mild malnutrition, nutritional consult Hypokalemia, replaced, recheck later History of DVT left lower extremity Patient is not on anticoagulation No evidence of DVT at this time Patient can not take Lovenox or heparin due to allergy/rash SCDs ordered GERD PPI DVT prophylaxis: SCD, patient can not take heparin or Lovenox due to allergy/rash Full Code status Patient is currently under section 12 at [facility], does not have guardian in place or [facility] Stroke Does the patient have a stroke diagnosis?: No Reason for No Anti-thrombotic by Day Two: Drug declined by patient VTE Prior VTE?: No VTE Risk Level:: Medical - low VTE Device Contraindication: N/A - Device Ordered VTE Drug Contraindication: N/A - Med Ordered
[2025-03-22 11:38] VITALS: BP 119/80; PULSE 76; RESP 14; TEMP 36.6; O2SAT 100
--- NOTE | 2025-03-22 12:32 | MHC.CM.PN ---
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
--- NOTE | 2025-03-22 13:15 | PHA.MEDREC ---
Pharmacy Consult ? Medication Reconciliation Pharmacy has completed the medication reconciliation. Called [facility] [phone] and spoke to [facility] Elle [phone] who gave patient's med list. She also confirmed pt is not taking invega sustena nor invega tablets. Called back again and spoke to nurse Gonzales (on 5-north floor) who confirmed the orders for quetiapine are 50 mg bid and 400 mg qhs so at night, pt would receive 450 mg. She also said patient has been refusing meds at the facility.
--- NOTE | 2025-03-22 13:25 | PC.NURSE ---
Pt does not answer questions when asked. Stares at you on occasion when speaking to her. When asked if she wanted to try a sip of water or ice chips, she replied no . NPO pending swallow eval. Ferguson draining yellow urine. Dentures brought in by [facility] Gonzalez and in room. Ofered to assist pt with dentures in her mouth but she did not respond. Sitter at bedside
[2025-03-22 13:56] LABS: Potassium 3.1 mmol/L (3.3-5.1)
[2025-03-22 15:27] VITALS: BP 137/78; PULSE 79; RESP 14; TEMP 36.8; O2SAT 98
--- NOTE | 2025-03-22 16:46 | PM.PSYCN ---
History of Present Illness Date of Service: 03/22/2025 Chief Complaint: UTI no to PO ABX Reason for Consult: Transfer from inpatient psychiatric hospital. Requesting physician: Gaurav Hernandez Sources of Information: patient interviewed and chart reviewed HPI Narrative: Patient is a 69 single female. She lives in [place]. Has a diagnosis of bipolar disorder. She has been at [facility] inpatient psychiatric unit since 02/20/25. She was transferred to [facility] yesterday due to worsening mental status and being non-communicative, refusing PO antibiotics and decreased PO in the setting of a recently diagnosed UTI. Per admission note from the hospitalist team yesterday, Pt is a 69 yo female currently nonverbal and unable to provide any HPI, PMH has been diagnosed with UTI in ED and request for admission has been made. After review of patient's medical chart patient has past medical history of UTI, bipolar 1 depression, osteoarthritis, status post cardiac catheterization, anxiety, GERD, insomnia, osteopenia, 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 Patient has been noncompliant with oral medications at [facility] and has been limited with oral intake nutritional strickland for over 1 week. Pt was taken to [facility] ED from [facility] on 03/16/2025 and was diagnosed with a UTI and was discharged back to [facility] on oral antibiotics. Initial concern was patient was not eating for 3-4 days prior to being seen in the ED. At that time, patient was verbal and was stating she had pain everywhere. Patient has refused oral antibiotics at [facility]. Patient then returned to the ED 03/20/2025 status post a fall with increased confusion. Workup in the ED was unremarkable aside from the known UTI. Patient was discharged back to [facility] and was started on Ceftin po and again patient refused antibiotics. Patient does not have a Salomon in place. Patient does not have a guardian. Patient is seen for admission and presents in a catatonic state. Patient is mute and appears to be in a state of stupor. Patient appears stiff lying on her back with minimal movement. Patient is making eye contact but does not respond appropriately. Patient appears to be able to protect her airway but risk for aspiration seems high. Patient has not received any benzodiazepines at this time. Per patient's sister Jennifer, patient had been on Seroquel and was doing very well for approximately 5 years until the recent incident with a puppy. At [facility], the psychiatrist had mentioned a new medication that they were considering but patient had not yet started because she was refusing oral medications. Patient currently has a one-to-one in place in the ED. This commercial insurance underwriter spoke with Dr. Hernandez who reports this morning when he rounded patient was conversant and even described as talkative but tangential. Later on in the day and when this commercial insurance underwriter went to see the patient in the afternoon, the patient has become almost non responsive as described in the admission note. Patient is laying in bed, she is staring forward, eyes open, looks at this commercial insurance underwriter then closes eyes, then opens them up again. When asked if she knows where she is she has significantly latent response, says yes . When asked can she tell this commercial insurance underwriter the name of this place and after latency she says no . She is disoriented to time. No response. Ryanter said he has tried to have her have some ice chips and she repeatedly refused. She is on IVF and IV Abx now for UTI. Past Psychiatric History: -Psych provider is [facility] Salazar in [place] -Per sister, pt has had depression since her early 20s and has suffered from unspecified chronic pain, surgeries. -Hx of multiple psych admissions to [facility] Medical Evaluation Reviewed: Yes [facility] Medical History History of skin cancer Hx of bladder problems VITO (generalized anxiety disorder) Murmur, cardiac Hx of thyroid nodule Osteopenia Hx of skin cancer, basal cell Seasonal allergies Insomnia Constipation GERD (gastroesophageal reflux disease) Anxiety History of electroconvulsive therapy Bipolar 1 disorder Surgical History Hx of colonoscopy H/O elbow surgery History of back surgery Family History: -Depression. In 1998 her great grandfather hung himself. Social History: -Pt has never been , no children. Dog recently . -Pt's mother (age 88), sister, and brother are involved with pt's care. -She graduated h.s. And has bachelors in psychology. She worked at [facility] [facility]. Trauma History: deferred Diagnostics Vital Signs (24Hr): Vital Signs - 24 hr 03/21/25 18:11 03/21/25 19:33 03/21/25 23:39 Temperature 98.3 F 98.6 F 98.4 F Pulse Rate 88 89 82 Respiratory Rate 18 16 16 Blood Pressure 141/82 H 135/83 132/78 Pulse Oximetry 100 100 100 Oxygen Delivery Method Room Air Room Air Room Air 03/22/25 04:00 03/22/25 07:48 03/22/25 11:38 Temperature 98.5 F 97.9 F Pulse Rate 79 72 76 Respiratory Rate 16 15 14 Blood Pressure 122/72 118/70 119/80 Pulse Oximetry 100 100 100 Oxygen Delivery Method Room Air Room Air Room Air 03/22/25 15:27 Temperature 98.2 F Pulse Rate 79 Respiratory Rate 14 Blood Pressure 137/78 Pulse Oximetry 98 Oxygen Delivery Method Room Air BMI result Body Mass Index 25.7 Labs 03/22/25 04:12 03/22/25 13:30 Labs: Laboratory Results - last 48 hr 03/21/25 03/21/25 03/22/25 15:09 16:46 04:12 WBC 11.3 H 7.6 RBC 4.28 3.70 L Hgb 13.2 11.2 L Hct 36.9 L 32.5 L MCV 86.2 87.8 MCH 30.8 30.3 MCHC 35.8 H 34.5 RDW 13.5 13.4 Plt Count 269 234 MPV 9.3 L 9.2 L Immature Gran % (Auto) 0.8 H 0.9 H Neut % (Auto) 77.8 H 67.9 Lymph % (Auto) 11.0 L 17.5 L [place] % (Auto) 10.2 12.4 H Eos % (Auto) 0.0 0.9 Baso % (Auto) 0.2 0.4 Lymph # (Auto) 1.3 1.3 Reagan # (Auto) 1.2 0.9 Eos # (Auto) 0.0 0.1 Baso # (Auto) 0.0 0.0 Abs Immat Gran (auto) 0.09 H 0.07 H Absolute Neuts (auto) 8.8 H 5.2 Absolute Nucleated RBC 0.000 0.000 Nucleated RBC % (auto) 0.0 0.0 Sodium 136 140 Potassium 4.3 D 2.9 L* D Chloride 104 108 Carbon Dioxide 20 L 22 Anion Gap 16 13 BUN 46 H 25 H Creatinine 1.23 0.62 Estim Creat Clear Calc 42.0 83.4 Estimated GFR 44 > 60 Random Glucose 111 121 H Calcium 9.9 8.3 L D Magnesium 2.3 Total Bilirubin 0.6 0.6 AST 107 H 80 H ALT 38 H 28 Alkaline Phosphatase 113 88 Ammonia 16 Total Protein 7.3 5.7 L Albumin 4.3 3.4 L Urine Color Yellow Urine Appearance Cloudy Urine pH 5.5 Ur Specific [place] 1.020 Urine Protein 30 (1+) H Urine Glucose (UA) Negative Urine Ketones 15 Urine Blood Small (1+) H Urine Nitrite Negative Ur Leukocyte Esterase Small (1+) H Urine RBC 3-5 H Urine WBC 11-20 H Ur Squamous Epith Cells 0-2 Urine Bacteria 4+ Hyaline Casts 3-5 Urine Opiates Screen Not Detected Ur Buprenorphine Scrn Not Detected Ur Oxycodone Screen Not Detected Urine Methadone Screen Not Detected Urine Fentanyl Screen Not Detected Ur Barbiturates Screen Not Detected Ur Phencyclidine Scrn Not Detected Ur Amphetamines Screen Not Detected U Benzodiazepines Scrn Not Detected Urine Cocaine Screen Not Detected U Marijuana (THC) Screen Not Detected 03/22/25 13:30 WBC RBC Hgb Hct MCV MCH MCHC RDW Plt Count MPV Immature Gran % (Auto) Neut % (Auto) Lymph % (Auto) [place] % (Auto) Eos % (Auto) Baso % (Auto) Lymph # (Auto) [place] # (Auto) Eos # (Auto) Baso # (Auto) Abs Immat Gran (auto) Absolute Neuts (auto) Absolute Nucleated RBC Nucleated RBC % (auto) Sodium Potassium 3.1 L Chloride Carbon Dioxide Anion Gap BUN Creatinine Estim Creat Clear Calc Estimated GFR Random Glucose Calcium Magnesium Total Bilirubin AST ALT Alkaline Phosphatase Ammonia Total Protein Albumin Urine Color Urine Appearance Urine pH Ur Specific [place] Urine Protein Urine Glucose (UA) Urine Ketones Urine Blood Urine Nitrite Ur Leukocyte Esterase Urine RBC Urine WBC Ur Squamous Epith Cells Urine Bacteria Hyaline Casts Urine Opiates Screen Ur Buprenorphine Scrn Ur Oxycodone Screen Urine Methadone Screen Urine Fentanyl Screen Ur Barbiturates Screen Ur Phencyclidine Scrn Ur Amphetamines Screen U Benzodiazepines Scrn Urine Cocaine Screen U Marijuana (THC) Screen Mental Status Exam Mental Status Exam Narrative: General appearance ospital gown. Thin. Laying in bed. Eyes open. Looks at examiner. Closes eyes then opens them up. Eye contact: WNL Musculoskeletal: No abnormal involuntary movements like tremors, EPS or dyskinesia. + psychomotor retardation. Manner/behavior: Uncooperative. Poorly responsive. Alert. Speech:? Almost mute. Very delayed latency and one word answer or utterations. Language: Can't assess Mood: Can't assess Affect: Flat, perplexed Thought process/associations: Blocked Thought content:?can't assess? Hallucinations: Appears internally preoccupied. Suicidality/self-destructive behavior: can't assess? ? Homicidally/violence: none.? Reliability: poor ? Judgment: poor.? ? Insight: poor Cognition: Alert disoriented Attention, concentration and fund of knowledge are impaired Level of Consciousness: Awake, Disoriented, Alert and Inappropriate Patient Behavior: Confused and Uncooperative Mood Description: Withdrawn, Anxious and Flat Affect Description: Withdrawn, Anxious and Flat Ability to Follow Directions: Poor Medications Medications Current Medications Acetaminophen (Acetaminophen 325 Mg Tablet) 650 mg PO Q6H PRN PRN Reason: Pain, Mild 1-3,fever,headache Albuterol/Ipratropium (Albuterol/Iprat 2.5/0.5mg 3 Ml Ampul.Neb) 3 ml INHALE Q4H PRN PRN Reason: Shortness of Breath/Wheezing Benztropine Mesylate (Benztropine Mesylate 0.5 Mg Tablet) 0.5 mg PO BID [facility] Last Admin: 03/22/25 11:02 Dose: Not Given Calcium Carbonate (Calcium Carbonate 750 Mg Tab.Chew) 750 mg PO Q4H PRN PRN Reason: Heartburn Ceftriaxone Sodium (Ceftriaxone Sodium 1 Gm Vial) 1 gm IVPUSH Q24H [facility] Docusate Sodium (Docusate Sodium 100 Mg Capsule) 100 mg PO BID PRN PRN Reason: Constipation Hydroxyzine HCl (Hydroxyzine Hcl 50 Mg Tablet) 50 mg PO Q4H PRN PRN Reason: Anxiety Potassium Chloride/Dextrose/Sod Cl (Kcl 10 Meq In 5% Dex/0.45% Sod) 10 meq in 1,000 mls @ 100 mls/hr IVCONT .Q10H [facility] Last Admin: 03/22/25 16:13 Dose: 100 mls/hr Loperamide HCl (Loperamide Hcl 2 Mg Capsule) 2 mg PO Q6H PRN PRN Reason: Diarrhea Loratadine (Loratadine 10 Mg Tablet) 10 mg PO DAILY [facility] Last Admin: 03/22/25 11:05 Dose: Not Given Lorazepam (Lorazepam 0.5 Mg Tablet) 0.5 mg PO TID [facility] Last Admin: 03/22/25 16:11 Dose: Not Given Magnesium Hydroxide (Milk Of Magnesia 30 Ml Oral.Susp) 30 ml PO DAILY PRN PRN Reason: Constipation Melatonin (Melatonin 3 Mg Tablet) 3 mg PO BEDTIME PRN PRN Reason: Sleep Mirtazapine (Mirtazapine 15 Mg Tablet) 15 mg PO BEDTIME [facility] Omeprazole (Omeprazole 20 Mg Capsule.Dr) 20 mg PO DAILY@0630 [facility] Ondansetron HCl (Ondansetron Hcl 4 Mg/2 Ml Vial) 4 mg IVPUSH Q8H PRN PRN Reason: Nausea and Vomiting Polyethylene Glycol (Polyethylene Glycol 3350 17 Gm Powd.Pack) 17 gm PO DAILY PRN PRN Reason: Constipation Quetiapine Fumarate (Quetiapine Fumarate 50 Mg Tablet) 50 mg PO BID [facility] Quetiapine Fumarate (Quetiapine Fumarate 400 Mg Tablet) 400 mg PO BEDTIME [facility] Senna (Sennosides 8.6 Mg Tablet) 17.2 mg PO BEDTIME [facility] Last Admin: 03/21/25 21:25 Dose: Not Given Sodium Chloride (0.9 % Sodium Chloride Flush 3 Ml Syringe) 3 ml IVFLUSH QSHIFT [facility] Last Admin: 03/22/25 16:16 Dose: Not Given Thiamine HCl (Thiamine Hcl 100 Mg Tablet) 100 mg PO BID [facility] Allergies Allergies Allergy/AdvReac Type Severity Reaction Status Date / Time bee pollen Allergy Severe Anaphylaxis Verified 03/21/25 14:48 levofloxacin (From Levaquin) Allergy Severe Itching Verified 03/21/25 14:48 enoxaparin (From Lovenox) Allergy Intermediate Rash Verified 03/21/25 14:48 Seasonal Allergies Allergy Mild Runny Nose Verified 03/21/25 14:48 venlafaxine (From Effexor) Allergy Mild Constipatio Verified 03/21/25 14:48 n Penicillins Allergy Unknown Unknown Verified 03/21/25 14:48 Assessment & Plan Assessment & Plan (1) Delirium due to another medical condition: Status: Acute Code(s): F05 - Delirium due to known physiological condition (2) Bipolar 1 disorder: Status: Acute Code(s): F31.9 - Bipolar disorder, unspecified Plan Patient 69 yo female with bipolar disorder transferred from [facility] inpatient psychiatric unit and admitted medically due to diagnosis of UTI and refusal of PO medications, non-responsiveness and decrease PO. Patient presents with waxing and waning mental status. Recommend: Continue treating medical causes of delirium including UTI. Replace and monitor electrolytes. Psych to follow. Once mental status clears, patient may need inpatient psychiatric admission at [facility] (adult v geriatric). For agitation, Olanzapine 5 mg PO or IM as needed. Total time managing care of this patient today ____ minutes.
[2025-03-22 19:22] VITALS: BP 137/72; PULSE 77; RESP 17; TEMP 36.6; O2SAT 98
--- NOTE | 2025-03-22 19:35 | PC.NURSE ---
1755- Pt continuously throwing legs over railing. When asked if pt wants to get OOB or has pain, pt only responds no or does not respond at all. Pt squeezing onto staff arms. Medicated with po hydroxizine with good effect. Sitter at bedside and states pt has not attempted to get OOB and is lying quietly. Dr Hernandez aware of repeat K 3.1
[2025-03-22 23:24] VITALS: BP 134/91; PULSE 112; RESP 19; TEMP 37; O2SAT 99
[2025-03-23] MEDS: KCl 10 mEq in 5% Dex/0.45% Sod 10 MEQ/1,000 ML IV.SOLN 100 MEQ IVCONT (01:52)
[2025-03-23 03:19] VITALS: BP 115/67; PULSE 78; RESP 15; TEMP 36.6; O2SAT 97
[2025-03-23 06:31] LABS: Anion Gap 8 (12-20); Blood Urea Nitrogen 6 mg/dL (9-16); Calcium 8.0 mg/dL (8.4-10.2); Carbon Dioxide 25 mmol/L (22-29); Chloride 109 mmol/L (96-108); Creatinine Clr Calc Pharmacy 107.8; Estimated Glomerular Filt Rate > 60; Potassium 2.7 mmol/L (3.3-5.1); Sodium 139 mmol/L (135-145)
[2025-03-23 07:19] VITALS: BP 102/60; PULSE 68; RESP 16; TEMP 36.4; O2SAT 99
[2025-03-23] MEDS: KCl 40 mEq in 5% Dex/0.9% Sod 40 MEQ/1,000 ML IV.SOLN 100 MEQ IVCONT ×2 (07:24→18:04)
--- NOTE | 2025-03-23 09:38 | P.PNIM_ITS ---
Subjective Subjective Date of Service: 03/23/25 Interval History: f/u on altered mental status, uti, bipolar disorder She is being having periods of agitation vs unresponsive state. Was fairly somnolent this morning, potassium noted to be low and being replaced with IV Physical Exam 2 Vital Signs: Vital Signs: Last Vital Signs Temp 97.6 F 03/23/25 07:19 Pulse 68 03/23/25 07:19 Resp 16 03/23/25 07:19 BP 102/60 03/23/25 07:19 Pulse Ox 99 03/23/25 07:19 O2 Del Method Room Air 03/23/25 07:19 BMI result Body Mass Index 25.7 Const: Other: alert,no distresss, constantly talking CVRRR lungs cta abd soft, nd, not ext no edema pysch:elevated mood, tangential Objective Data Active Medications Acetaminophen (Acetaminophen 325 Mg Tablet) 650 mg PO Q6H PRN PRN Reason: Pain, Mild 1-3,fever,headache Albuterol/Ipratropium (Albuterol/Iprat 2.5/0.5mg 3 Ml Ampul.Neb) 3 ml INHALE Q4H PRN PRN Reason: Shortness of Breath/Wheezing Benztropine Mesylate (Benztropine Mesylate 0.5 Mg Tablet) 0.5 mg PO BID [facility] Last Admin: 03/23/25 08:22 Dose: 0.5 mg Documented By: GIRISH Calcium Carbonate (Calcium Carbonate 750 Mg Tab.Chew) 750 mg PO Q4H PRN PRN Reason: Heartburn Ceftriaxone Sodium (Ceftriaxone Sodium 1 Gm Vial) 1 gm IVPUSH Q24H [facility] Last Admin: 03/22/25 17:49 Dose: 1 gm Documented By: JUDITH Docusate Sodium (Docusate Sodium 100 Mg Capsule) 100 mg PO BID PRN PRN Reason: Constipation Hydroxyzine HCl (Hydroxyzine Hcl 50 Mg Tablet) 50 mg PO Q4H PRN PRN Reason: Anxiety Last Admin: 03/22/25 17:58 Dose: 50 mg Documented By: JUDITH Potassium Chloride/Dextrose/Sod Cl (Kcl 40 Meq In 5% Dex/0.9% Sod) 40 meq in 1,000 mls @ 100 mls/hr IVCONT .Q10H [facility] Stop: 03/24/25 06:59 Last Admin: 03/23/25 07:24 Dose: 100 mls/hr Documented By: GIRISH Loperamide HCl (Loperamide Hcl 2 Mg Capsule) 2 mg PO Q6H PRN PRN Reason: Diarrhea Loratadine (Loratadine 10 Mg Tablet) 10 mg PO DAILY [facility] Last Admin: 03/23/25 08:25 Dose: Not Given Documented By: GIRISH Non-Admin Reason: Patient Refused Lorazepam (Lorazepam 0.5 Mg Tablet) 0.5 mg PO TID [facility] Last Admin: 03/23/25 08:22 Dose: 0.5 mg Documented By: GIRISH Magnesium Hydroxide (Milk Of Magnesia 30 Ml Oral.Susp) 30 ml PO DAILY PRN PRN Reason: Constipation Melatonin (Melatonin 3 Mg Tablet) 3 mg PO BEDTIME PRN PRN Reason: Sleep Mirtazapine (Mirtazapine 15 Mg Tablet) 15 mg PO BEDTIME [facility] Last Admin: 03/22/25 21:15 Dose: 15 mg Documented By: SHIRA Omeprazole (Omeprazole 20 Mg Capsule.Dr) 20 mg PO DAILY@0630 [facility] Last Admin: 03/23/25 06:28 Dose: Not Given Documented By: SHIRA Non-Admin Reason: pt too sleepy Ondansetron HCl (Ondansetron Hcl 4 Mg/2 Ml Vial) 4 mg IVPUSH Q8H PRN PRN Reason: Nausea and Vomiting Polyethylene Glycol (Polyethylene Glycol 3350 17 Gm Powd.Pack) 17 gm PO DAILY PRN PRN Reason: Constipation Potassium Chloride (Potassium Chloride Packet 20 Meq Packet) 20 meq PO BID [facility] Quetiapine Fumarate (Quetiapine Fumarate 50 Mg Tablet) 50 mg PO BID [facility] Last Admin: 03/23/25 08:22 Dose: 50 mg Documented By: GIRISH Quetiapine Fumarate (Quetiapine Fumarate 400 Mg Tablet) 400 mg PO BEDTIME [facility] Last Admin: 03/22/25 21:15 Dose: 400 mg Documented By: SHIRA Senna (Sennosides 8.6 Mg Tablet) 17.2 mg PO BEDTIME [facility] Last Admin: 03/22/25 21:23 Dose: Not Given Documented By: SHIRA Non-Admin Reason: Patient Refused Sodium Chloride (0.9 % Sodium Chloride Flush 3 Ml Syringe) 3 ml IVFLUSH QSHIFT [facility] Last Admin: 03/23/25 07:28 Dose: Not Given Documented By: GIRISH Non-Admin Reason: Previously Administered Thiamine HCl (Thiamine Hcl 100 Mg Tablet) 100 mg PO BID [facility] Last Admin: 03/23/25 08:25 Dose: Not Given Documented By: GIRISH Non-Admin Reason: Patient Refused Labs 03/22/25 04:12 03/23/25 05:44 Labs: Laboratory Results - last 24 hr 03/23/25 05:44 Hold Purple Top SEE NOTE Anion Gap 8 L Estim Creat Clear Calc 107.8 Estimated GFR > 60 Random Glucose 134 H Calcium 8.0 L Microbiology Microbiology Results: Microbiology 03/21/25 18:11 Blood Culture - Preliminary Blood - Venous No growth after 24 hours. 03/21/25 18:07 Blood Culture - Preliminary Blood - Venous No growth after 24 hours. 03/21/25 16:46 Urine Culture - Preliminary Urine clean catch - Clean Catch Midstream Culture in progress. Assessment and Plan (1) Bipolar 1 disorder: Status: Acute (2) Anxiety: Status: Acute (3) Bipolar 1 disorder, depressed, severe: Status: Acute Plan Pt is a 69 yo female currently nonverbal and unable to provide any HPI, PMH has been diagnosed with UTI in ED and request for admission has been made. After review of patient's medical chart patient has past medical history of UTI, bipolar 1 depression, osteoarthritis, status post cardiac catheterization, anxiety, GERD, insomnia, osteopenia, 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 Patient has been noncompliant with oral medications at [facility] and has been limited with oral intake nutritional strickland for over 1 week. Urinary tract infection continue ceftriaxone, follow cultures Decompensated Bipolar, with alter mental, this morning not responding ? raised about delirium has been refusing meds Psych consult and likely need inpatient hospitalization Psysch recommends For agitation, Olanzapine 5 mg PO or IM as needed. mild malnutrition, nutritional consult continue ivf for now HypOkalemia, replacing with IV K History of DVT left lower extremity Patient is not on anticoagulation No evidence of DVT at this time Patient can not take Lovenox or heparin due to allergy/rash SCDs ordered GERD PPI DVT prophylaxis: SCD, patient can not take heparin or Lovenox due to allergy/rash Full Code status Patient is currently under section 12 at [facility], does not have guardian in place or [facility] Stroke Does the patient have a stroke diagnosis?: No Reason for No Anti-thrombotic by Day Two: Drug declined by patient VTE Prior VTE?: No VTE Risk Level:: Medical - low VTE Device Contraindication: N/A - Device Ordered VTE Drug Contraindication: N/A - Med Ordered
[2025-03-23 10:42] LABS: Magnesium 1.5 mg/dL (1.6-2.6)
[2025-03-23 11:38] VITALS: BP 126/68; PULSE 83; RESP 18
[2025-03-23 11:47] LABS: Potassium 4.3 mmol/L (3.3-5.1)
[2025-03-23] MEDS: Magnesium Sulfate/H2O 2 GM/50 ML PIGGYBACK IV (11:54)
--- NOTE | 2025-03-23 13:36 | MHC.SL.SWA ---
Speech Pathologist Impression: Oropharyngeal coordination WNL but PO intake significantly reduced Risk of Aspiration Due to: Dysphasia Diet Status: Liquid Consistency and Strategies for Safe Swallow: Liquid Intake Recommendation: Thin Liquid Intake Strategies: Solid Food Consistency: Dietary Recommendations: Grnd/Mech Altered (NDD2) Additional Modifications to Solid Foods: Oral Medication Intake: Crushed with Puree Please contact the pharmacy regarding appropriate crushable or liquid drug formulations that are available whenever modified delivery is recommended. Compensatory Strategies and Precautions to be Taken for Safe Swallow: Supervision While Eating and Drinking for Safe Swallow: Total Assistance (1:1) Foods to Avoid: Swallowing Recommended Treatments: Recommendation for Speech: Inpatient Speech Therapy Comment: MD and RN consulted. Pt was on regular diet but downgraded to ground d/t poor alertness, limited PO intake. Pt awake and verbal during clinical bedside swallow evaluation, low facial affect and significant disorientation. Pt voicing absent of wetness but harsh. Pt verbal expression primarily abrupt with rushes of repetitive speech. Pt makes eye contact with others when spoken to, but response latency persists. Pt was repositioned more upright in bed, cueing provided to orient pt to task of eating. Pt picked up fork with R hand and ate a bite of mashed potatoes with gravy. Pt would not accept any further PO. Oropharyngeal coordination unremarkable, pt voicing is absent of wetness. Recc diet as ordered, ASSEMBLY MACHINE TENDER following. Frequency/Duration: Daily M-F Date Range for Service Req: Timeline to reassess: Director Insurance Clinican/Clinical Fellow: No Supervisory Statement: I have reviewed and agree with the student/clinical fellow's documentation: N/A Speech Language Pathologist: Ana Calle M.S., CCC-ASSEMBLY MACHINE TENDER
--- NOTE | 2025-03-23 14:23 | MHC.CLN ---
CONSULT CONSULT FOR REPORTED POOR PO INTAKE. PATIENT FROM [facility]. REVIEW OF WEIGHT HX SHOWS NO SIGNIFICANT WEIGHT CHANGE X 10 MONTHS. DIET RX GROUND WITH THIN LIQUIDS. ADDING ENSURE TID TO PROMOTE NUTRITIONAL INTAKE. SUPPLEMENT PROVIDES 10[address], [address] TO MONITOR WEEKLY.
--- NOTE | 2025-03-23 15:10 | PM.PSYCN ---
History of Present Illness Date of Service: 03/23/25 at 1258 Chief Complaint: UTI no to PO ABX Reason for Consult: FLU regarding delirium Discussed with referring provider: Yes Sources of Information: patient interviewed, chart reviewed and crisis/core team assessment reviewed HPI Narrative: Per Previous psychiatric consult note: Patient 69 yo female with bipolar disorder transferred from [facility] inpatient psychiatric unit and admitted medically due to diagnosis of UTI and refusal of PO medications, non-responsiveness and decrease PO. Patient presents with waxing and waning mental status. This provider met with patient in room 360 for FLU regarding any progress in term of mental status. Patient is engaging in conversation and able to answer some of questions but most of the do not make sense. Patient able to tell this provier her and knowing she is in the hosptial at [facility]. She has concerns about her voices but is not able to tell provider that is going on with her voice. She is able to give her sister name and mentioned something related to [place]ian. She also mentions someone name Shawn but not sure who is Shawn. Speech therapist also in the room to do swallow evaluation. Patient has the tray in front of her which she stops eating once this provider came in. Per speech therapist, she was ablt to have some bites of mash potato on the tray and some sips of juice. Patient appears to more alert and not in distress. She is able to talk more than she was when this provider saw her at [facility] over the weekends a couple weeks ago. Per record, patient taking all PO scheduled meds included Seroquel 400mg at HS and Ativan Scheduled. She also on IV antibioltic for UTI. It seems that she has made some progress but slowly. Able to vocal and able tolerate small portion of her tray at lunch. She appears to be paranoid as well as she asked why food look like it is poisoned. I also suspect some form of catatonic as well. She tolerates well with Ativan 0.5 TID PO. If she can tolerate well another day or two, I would like to have Ativan increase upt to 1mg TID PO to see if is helpful with catatonic. D/t her age, will cautious with BZD. I agree with previous provider plan and consideration for [facility] admission once she is medically clear. Continue treating medical causes of delirium including UTI. Replace and monitor electrolytes. Psych to follow. Once mental status clears, patient may need inpatient psychiatric admission at [facility] (adult v geriatric). For agitation, Olanzapine 5 mg PO or IM as needed. Past Psychiatric History: -Psych provider is [facility] in [place] -Per sister, pt has had depression since her early 20s and has suffered from unspecified chronic pain, surgeries. -Hx of multiple psych admissions to [facility] Medical Evaluation Reviewed: Yes Defer to medical team Review of Systems Review of Systems Continue with UTI treatment. no SOB or wheezing. No report of N/V. In bed during assessment time. [facility] Medical History (Updated 03/23/25 @ 20:19 by Pauly Box NP) Delirium due to another medical condition History of skin cancer Hx of bladder problems VITO (generalized anxiety disorder) Murmur, cardiac Hx of thyroid nodule Osteopenia Hx of skin cancer, basal cell Seasonal allergies Insomnia Constipation GERD (gastroesophageal reflux disease) Anxiety History of electroconvulsive therapy Bipolar 1 disorder Surgical History Hx of colonoscopy H/O elbow surgery History of back surgery Family History: -Depression. In 1998 her great grandfather hung himself. Social History: -Pt has never been , no children. Dog recently . -Pt's mother (age 88), sister, and brother are involved with pt's care. -She graduated h.s. And has bachelors in psychology. She worked at [facility]. Substance History: not discuss Trauma History: deferred Diagnostics Vital Signs (24Hr): Vital Signs - 24 hr 03/22/25 15:27 03/22/25 19:22 03/22/25 23:24 Temperature 98.2 F 97.9 F 98.6 F Pulse Rate 79 77 112 H Respiratory Rate 14 17 19 Blood Pressure 137/78 137/72 134/91 H Pulse Oximetry 98 98 99 Oxygen Delivery Method Room Air Room Air Room Air 03/23/25 03:19 03/23/25 07:19 03/23/25 11:38 Temperature 97.8 F 97.6 F Pulse Rate 78 68 83 Respiratory Rate 15 16 18 Blood Pressure 115/67 102/60 126/68 Pulse Oximetry 97 99 Oxygen Delivery Method Room Air Room Air BMI result Body Mass Index 25.7 Labs 03/22/25 04:12 03/23/25 17:01 Labs: Laboratory Results - last 48 hr 03/21/25 03/21/25 03/22/25 15:09 16:46 04:12 WBC 11.3 H 7.6 RBC 4.28 3.70 L Hgb 13.2 11.2 L Hct 36.9 L 32.5 L MCV 86.2 87.8 MCH 30.8 30.3 MCHC 35.8 H 34.5 RDW 13.5 13.4 Plt Count 269 234 MPV 9.3 L 9.2 L Immature Gran % (Auto) 0.8 H 0.9 H Neut % (Auto) 77.8 H 67.9 Lymph % (Auto) 11.0 L 17.5 L Screven % (Auto) 10.2 12.4 H Eos % (Auto) 0.0 0.9 Baso % (Auto) 0.2 0.4 Lymph # (Auto) 1.3 1.3 Screven # (Auto) 1.2 0.9 Eos # (Auto) 0.0 0.1 Baso # (Auto) 0.0 0.0 Abs Immat Gran (auto) 0.09 H 0.07 H Absolute Neuts (auto) 8.8 H 5.2 Absolute Nucleated RBC 0.000 0.000 Nucleated RBC % (auto) 0.0 0.0 Hold Purple Top Sodium 136 140 Potassium 4.3 D 2.9 L* D Chloride 104 108 Carbon Dioxide 20 L 22 Anion Gap 16 13 BUN 46 H 25 H Creatinine 1.23 0.62 Estim Creat Clear Calc 42.0 83.4 Estimated GFR 44 > 60 Random Glucose 111 121 H Calcium 9.9 8.3 L D Magnesium 2.3 Total Bilirubin 0.6 0.6 AST 107 H 80 H ALT 38 H 28 Alkaline Phosphatase 113 88 Ammonia 16 Total Protein 7.3 5.7 L Albumin 4.3 3.4 L Urine Color Yellow Urine Appearance Cloudy Urine pH 5.5 Ur Specific Mccamey 1.020 Urine Protein 30 (1+) H Urine Glucose (UA) Negative Urine Ketones 15 Urine Blood Small (1+) H Urine Nitrite Negative Ur Leukocyte Esterase Small (1+) H Urine RBC 3-5 H Urine WBC 11-20 H Ur Squamous Epith Cells 0-2 Urine Bacteria 4+ Hyaline Casts 3-5 Urine Opiates Screen Not Detected Ur Buprenorphine Scrn Not Detected Ur Oxycodone Screen Not Detected Urine Methadone Screen Not Detected Urine Fentanyl Screen Not Detected Ur Barbiturates Screen Not Detected Ur Phencyclidine Scrn Not Detected Ur Amphetamines Screen Not Detected U Benzodiazepines Scrn Not Detected Urine Cocaine Screen Not Detected U Marijuana (THC) Screen Not Detected 03/22/25 03/23/25 03/23/25 13:30 05:44 11:28 WBC RBC Hgb Hct MCV MCH MCHC RDW Plt Count MPV Immature Gran % (Auto) Neut % (Auto) Lymph % (Auto) Scre[place] % (Auto) Eos % (Auto) Baso % (Auto) Lymph # (Auto) Scre[place] # (Auto) Eos # (Auto) Baso # (Auto) Abs Immat Gran (auto) Absolute Neuts (auto) Absolute Nucleated RBC Nucleated RBC % (auto) Hold Purple Top SEE NOTE Sodium 139 Potassium 3.1 L 2.7 L* 4.3 D Chloride 109 H Carbon Dioxide 25 Anion Gap 8 L BUN 6 L Creatinine 0.48 L Estim Creat Clear Calc 107.8 Estimated GFR > 60 Random Glucose 134 H Calcium 8.0 L Magnesium 1.5 L Total Bilirubin AST ALT Alkaline Phosphatase Ammonia Total Protein Albumin Urine Color Urine Appearance Urine pH Ur Specific Mccamey Urine Protein Urine Glucose (UA) Urine Ketones Urine Blood Urine Nitrite Ur Leukocyte Esterase Urine RBC Urine WBC Ur Squamous Epith Cells Urine Bacteria Hyaline Casts Urine Opiates Screen Ur Buprenorphine Scrn Ur Oxycodone Screen Urine Methadone Screen Urine Fentanyl Screen Ur Barbiturates Screen Ur Phencyclidine Scrn Ur Amphetamines Screen U Benzodiazepines Scrn Urine Cocaine Screen U Marijuana (THC) Screen Mental Status Exam Mental Status Exam Narrative: Patient is A+O x2. She knows her , and the hospital where she is at now but not able to answer the question what brought her to the hospital. She wears hospital attite. Appear to be anxious but pleasant and cooperative. She is not aware of her surrounding. Do not appear to be distress. She appears to be paranoid but improved compared her self about 2-3 weeks ago. She is verbal but sometimes does not make sense. Better with PO intake and take meds PO. Do not express of SI/SIB/HI/AVH but made paranoia statement as she think food is poisoned. Impaired insight and judgment. Medications Medications Current Medications Acetaminophen (Acetaminophen 325 Mg Tablet) 650 mg PO Q6H PRN PRN Reason: Pain, Mild 1-3,fever,headache Albuterol/Ipratropium (Albuterol/Iprat 2.5/0.5mg 3 Ml Ampul.Neb) 3 ml INHALE Q4H PRN PRN Reason: Shortness of Breath/Wheezing Benztropine Mesylate (Benztropine Mesylate 0.5 Mg Tablet) 0.5 mg PO BID [facility] Last Admin: 03/23/25 08:22 Dose: 0.5 mg Calcium Carbonate (Calcium Carbonate 750 Mg Tab.Chew) 750 mg PO Q4H PRN PRN Reason: Heartburn Ceftriaxone Sodium (Ceftriaxone Sodium 1 Gm Vial) 1 gm IVPUSH Q24H [facility] Last Admin: 03/22/25 17:49 Dose: 1 gm Docusate Sodium (Docusate Sodium 100 Mg Capsule) 100 mg PO BID PRN PRN Reason: Constipation Hydroxyzine HCl (Hydroxyzine Hcl 50 Mg Tablet) 50 mg PO Q4H PRN PRN Reason: Anxiety Last Admin: 03/22/25 17:58 Dose: 50 mg Potassium Chloride/Dextrose/Sod Cl (Kcl 40 Meq In 5% Dex/0.9% Sod) 40 meq in 1,000 mls @ 100 mls/hr IVCONT .Q10H [facility] Stop: 03/24/25 06:59 Last Admin: 03/23/25 07:24 Dose: 100 mls/hr Loperamide HCl (Loperamide Hcl 2 Mg Capsule) 2 mg PO Q6H PRN PRN Reason: Diarrhea Loratadine (Loratadine 10 Mg Tablet) 10 mg PO DAILY [facility] Last Admin: 03/23/25 08:25 Dose: Not Given Lorazepam (Lorazepam 0.5 Mg Tablet) 0.5 mg PO TID [facility] Last Admin: 03/23/25 08:22 Dose: 0.5 mg Magnesium Hydroxide (Milk Of Magnesia 30 Ml Oral.Susp) 30 ml PO DAILY PRN PRN Reason: Constipation Melatonin (Melatonin 3 Mg Tablet) 3 mg PO BEDTIME PRN PRN Reason: Sleep Mirtazapine (Mirtazapine 15 Mg Tablet) 15 mg PO BEDTIME [facility] Last Admin: 03/22/25 21:15 Dose: 15 mg Omeprazole (Omeprazole 20 Mg Capsule.Dr) 20 mg PO DAILY@0630 [facility] Last Admin: 03/23/25 06:28 Dose: Not Given Ondansetron HCl (Ondansetron Hcl 4 Mg/2 Ml Vial) 4 mg IVPUSH Q8H PRN PRN Reason: Nausea and Vomiting Polyethylene Glycol (Polyethylene Glycol 3350 17 Gm Powd.Pack) 17 gm PO DAILY PRN PRN Reason: Constipation Potassium Chloride (Potassium Chloride Packet 20 Meq Packet) 20 meq PO BID [facility] Quetiapine Fumarate (Quetiapine Fumarate 50 Mg Tablet) 50 mg PO BID [facility] Last Admin: 03/23/25 08:22 Dose: 50 mg Quetiapine Fumarate (Quetiapine Fumarate 400 Mg Tablet) 400 mg PO BEDTIME [facility] Last Admin: 03/22/25 21:15 Dose: 400 mg Senna (Sennosides 8.6 Mg Tablet) 17.2 mg PO BEDTIME [facility] Last Admin: 03/22/25 21:23 Dose: Not Given Sodium Chloride (0.9 % Sodium Chloride Flush 3 Ml Syringe) 3 ml IVFLUSH QSHIFT [facility] Last Admin: 03/23/25 07:28 Dose: Not Given Thiamine HCl (Thiamine Hcl 100 Mg Tablet) 100 mg PO BID [facility] Last Admin: 03/23/25 08:25 Dose: Not Given Allergies Allergies Allergy/AdvReac Type Severity Reaction Status Date / Time bee pollen Allergy Severe Anaphylaxis Verified 03/21/25 14:48 levofloxacin (From Levaquin) Allergy Severe Itching Verified 03/21/25 14:48 enoxaparin (From Lovenox) Allergy Intermediate Rash Verified 03/21/25 14:48 Seasonal Allergies Allergy Mild Runny Nose Verified 03/21/25 14:48 venlafaxine (From Effexor) Allergy Mild Constipatio Verified 03/21/25 14:48 n Penicillins Allergy Unknown Unknown Verified 03/21/25 14:48 Assessment & Plan Assessment & Plan (1) Delirium due to another medical condition: Status: Acute Code(s): F05 - Delirium due to known physiological condition (2) UTI (urinary tract infection): Qualifiers: Hematuria presence: without hematuria Urinary tract infection type: acute cystitis Qualified Code(s): N30.00 - Acute cystitis without hematuria Status: Acute Code(s): N39.0 - Urinary tract infection, site not specified (3) Bipolar 1 disorder: Status: Acute Code(s): F31.9 - Bipolar disorder, unspecified Plan This provider met with patient in room 360 for FLU regarding any progress in term of mental status. Patient is engaging in conversation and able to answer some of questions but most of the do not make sense. Patient able to tell this provier her and knowing she is in the hosptial at [facility]. She has concerns about her voices but is not able to tell provider that is going on with her voice. She is able to give her sister name and mentioned something related to [place]. She also mentions someone name Shawn but not sure who is Shawn. Speech therapist also in the room to do swallow evaluation. Patient has the tray in front of her which she stops eating once this provider came in. Per speech therapist, she was ablt to have some bites of mash potato on the tray and some sips of juice. Patient appears to more alert and not in distress. She is able to talk more than she was when this provider saw her at [facility] over the weekends a couple weeks ago. Per record, patient taking all PO scheduled meds included Seroquel 400mg at HS and Ativan Scheduled. She also on IV antibioltic for UTI. It seems that she has made some progress but slowly. Able to vocal and able tolerate small portion of her tray at lunch. She appears to be paranoid as well as she asked why food look like it is poisoned. I also suspect some form of catatonic as well. She tolerates well with Ativan 0.5 TID PO. If she can tolerate well another day or two, I would like to have Ativan increase upt to 1mg TID PO to see if is helpful with catatonic. D/t her age, will cautious with BZD. I agree with previous provider plan and consideration for [facility] admission once she is medically clear. Continue treating medical causes of delirium including UTI. Replace and monitor electrolytes. Psych to follow. Once mental status clears, patient may need inpatient psychiatric admission at [facility] (adult v geriatric). For agitation, Olanzapine 5 mg PO or IM as needed Total time managing care of this patient today ____ minutes. Patient educated on: diagnosis, medication risk/benefits and therapeutic strategies Informed Consent: further education needed
[2025-03-23 16:00] VITALS: BP 174/80; PULSE 78; RESP 19; TEMP 36.2; O2SAT 98
[2025-03-23] MEDS: diazePAM 10 MG/2 ML CARTRIDGE 2.5 MG IVPUSH ×2 (16:33→18:44)
[2025-03-23 17:21] LABS: Anion Gap 9 (12-20); Carbon Dioxide 24 mmol/L (22-29); Chloride 110 mmol/L (96-108); Potassium 3.3 mmol/L (3.3-5.1); Sodium 140 mmol/L (135-145)
[2025-03-23 20:00] VITALS: BP 143/78; PULSE 79; RESP 19; TEMP 36.3; O2SAT 100
[2025-03-23 23:13] VITALS: BP 161/74; PULSE 75; RESP 14; TEMP 36.3; O2SAT 99
[2025-03-24] MEDS: KCl 40 mEq in 5% Dex/0.9% Sod 40 MEQ/1,000 ML IV.SOLN 100 MEQ IVCONT (03:05)
[2025-03-24 03:37] VITALS: BP 132/80; PULSE 82; RESP 14; TEMP 36; O2SAT 100
[2025-03-24 06:52] LABS: Calcium 8.1 mg/dL (8.4-10.2); Chloride 110 mmol/L (96-108); Potassium 3.5 mmol/L (3.3-5.1); Sodium 141 mmol/L (135-145)
[2025-03-24 07:48] VITALS: BP 152/90; PULSE 86; RESP 18; TEMP 36.1; O2SAT 97
--- NOTE | 2025-03-24 08:09 | HO.PM.IMPN ---
Subjective Subjective Date of Service: 03/24/25 Interval History: f/u on altered mental status, uti, bipolar disorder She is awake this morning, try to get out of bed and redirected by sitter She is not communicating, baseline unclear Physical Exam Vital Signs: Vital Signs: Last Vital Signs Temp 97.0 F 03/24/25 07:48 Pulse 86 03/24/25 07:48 Resp 18 03/24/25 07:48 BP 152/90 H 03/24/25 07:48 Pulse Ox 97 03/24/25 07:48 O2 Del Method Room Air 03/24/25 07:48 BMI result Body Mass Index 25.7 Const: Other: alert,no distresss, constantly talking CVRRR lungs cta abd soft, nd, not ext no edema pysch:elevated mood, tangential Objective Data Active Medications Acetaminophen (Acetaminophen 325 Mg Tablet) 650 mg PO Q6H PRN PRN Reason: Pain, Mild 1-3,fever,headache Albuterol/Ipratropium (Albuterol/Iprat 2.5/0.5mg 3 Ml Ampul.Neb) 3 ml INHALE Q4H PRN PRN Reason: Shortness of Breath/Wheezing Benztropine Mesylate (Benztropine Mesylate 0.5 Mg Tablet) 0.5 mg PO BID [facility] Last Admin: 03/23/25 21:02 Dose: Not Given Documented By: SHIRA Non-Admin Reason: Patient Refused Calcium Carbonate (Calcium Carbonate 750 Mg Tab.Chew) 750 mg PO Q4H PRN PRN Reason: Heartburn Ceftriaxone Sodium (Ceftriaxone Sodium 1 Gm Vial) 1 gm IVPUSH Q24H [facility] Last Admin: 03/23/25 17:29 Dose: 1 gm Documented By: GIRISH Docusate Sodium (Docusate Sodium 100 Mg Capsule) 100 mg PO BID PRN PRN Reason: Constipation Hydroxyzine HCl (Hydroxyzine Hcl 50 Mg Tablet) 50 mg PO Q4H PRN PRN Reason: Anxiety Last Admin: 03/22/25 17:58 Dose: 50 mg Loperamide HCl (Loperamide Hcl 2 Mg Capsule) 2 mg PO Q6H PRN PRN Reason: Diarrhea Loratadine (Loratadine 10 Mg Tablet) 10 mg PO DAILY [facility] Last Admin: 03/23/25 08:25 Dose: Not Given Documented By: HO.SWEITZM Non-Admin Reason: Patient Refused Lorazepam (Lorazepam 0.5 Mg Tablet) 0.5 mg PO TID [facility] Last Admin: 03/23/25 21:02 Dose: Not Given Documented By: SHIRA Non-Admin Reason: Patient Refused Magnesium Hydroxide (Milk Of Magnesia 30 Ml Oral.Susp) 30 ml PO DAILY PRN PRN Reason: Constipation Melatonin (Melatonin 3 Mg Tablet) 3 mg PO BEDTIME PRN PRN Reason: Sleep Mirtazapine (Mirtazapine 15 Mg Tablet) 15 mg PO BEDTIME [facility] Last Admin: 03/23/25 21:02 Dose: Not Given Documented By: SHIRA Non-Admin Reason: Patient Refused Omeprazole (Omeprazole 20 Mg Capsule.Dr) 20 mg PO DAILY@0630 [facility] Last Admin: 03/24/25 05:43 Dose: Not Given Documented By: SHIRA Non-Admin Reason: Patient Refused Ondansetron HCl (Ondansetron Hcl 4 Mg/2 Ml Vial) 4 mg IVPUSH Q8H PRN PRN Reason: Nausea and Vomiting Polyethylene Glycol (Polyethylene Glycol 3350 17 Gm Powd.Pack) 17 gm PO DAILY PRN PRN Reason: Constipation Potassium Chloride (Potassium Chloride Packet 20 Meq Packet) 20 meq PO BID [facility] Last Admin: 03/23/25 21:02 Dose: Not Given Documented By: SHIRA Non-Admin Reason: Patient Refused Quetiapine Fumarate (Quetiapine Fumarate 50 Mg Tablet) 50 mg PO BID [facility] Last Admin: 03/23/25 21:03 Dose: Not Given Documented By: SHIRA Non-Admin Reason: Patient Refused Quetiapine Fumarate (Quetiapine Fumarate 400 Mg Tablet) 400 mg PO BEDTIME [facility] Last Admin: 03/23/25 21:03 Dose: Not Given Documented By: SHIRA Non-Admin Reason: Patient Refused Senna (Sennosides 8.6 Mg Tablet) 17.2 mg PO BEDTIME [facility] Last Admin: 03/23/25 21:03 Dose: Not Given Documented By: SHIRA Non-Admin Reason: Patient Refused Sodium Chloride (0.9 % Sodium Chloride Flush 3 Ml Syringe) 3 ml IVFLUSH QSHIFT [facility] Last Admin: 03/23/25 23:42 Dose: Not Given Documented By: SHIRA Non-Admin Reason: IV Running Thiamine HCl (Thiamine Hcl 100 Mg Tablet) 100 mg PO BID [facility] Last Admin: 03/23/25 21:03 Dose: Not Given Documented By: SHIRA Non-Admin Reason: Patient Refused Labs 03/22/25 04:12 03/24/25 05:12 Labs: Laboratory Results - last 24 hr 03/23/25 03/23/25 03/24/25 05:44 17:01 05:12 Hold Purple Top SEE NOTE Anion Gap 9 L 10 L Estim Creat Clear Calc 105.6 Estimated GFR > 60 Random Glucose 122 H Calcium 8.1 L Magnesium 1.5 L Microbiology Microbiology Results: Microbiology 03/21/25 18:11 Blood Culture - Preliminary Blood - Venous No growth after 48 hours. 03/21/25 18:07 Blood Culture - Preliminary Blood - Venous No growth after 48 hours. 03/21/25 16:46 Urine Culture - Preliminary Urine clean catch - Clean Catch Midstream Gram positive cocci Assessment and Plan (1) Bipolar 1 disorder: Status: Acute (2) Anxiety: Status: Acute (3) Bipolar 1 disorder, depressed, severe: Status: Acute Plan Pt is a 69 yo female currently nonverbal and unable to provide any HPI, PMH has been diagnosed with UTI in ED and request for admission has been made. After review of patient's medical chart patient has past medical history of UTI, bipolar 1 depression, osteoarthritis, status post cardiac catheterization, anxiety, GERD, insomnia, osteopenia, 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 Patient has been noncompliant with oral medications at [facility] and has been limited with oral intake nutritional strickland for over 1 week. Urinary tract infection infection culture = Aerococcus urinae, no sensitivity done continue ceftriaxone, consider changing to oral Abx Decompensated Bipolar, with alter mental, this morning not responding ? raised about delirium has been refusing meds Psych consult and likely need inpatient hospitalization Psysch recommends For agitation, Olanzapine 5 mg PO or IM as needed. CARE consult mild malnutrition, nutritional consult continue ivf for now HypOkalemia, corrected History of DVT left lower extremity Patient is not on anticoagulation No evidence of DVT at this time Patient can not take Lovenox or heparin due to allergy/rash SCDs ordered GERD PPI DVT prophylaxis: SCD, patient can not take heparin or Lovenox due to allergy/rash Full Code status Patient is currently under section 12 at [facility], does not have guardian in place or [facility] Stroke Does the patient have a stroke diagnosis?: No Reason for No Anti-thrombotic by Day Two: Drug declined by patient VTE Prior VTE?: No VTE Risk Level:: Medical - low VTE Device Contraindication: N/A - Device Ordered VTE Drug Contraindication: N/A - Med Ordered
[2025-03-24] MEDS: Potassium Chloride Packet 20 MEQ PACKET PO (11:05)
[2025-03-24 12:00] VITALS: BP 157/96; PULSE 84; RESP 16; TEMP 36.2; O2SAT 99
--- NOTE | 2025-03-24 14:15 | MHC.CARE ---
Patient evaluated by the CARE Team, disposition inpatient psychiatric treatment. Provider, Dr Hernandez updated.
[2025-03-24] MEDS: 0.9 % Sodium Chloride Flush 3 ML SYRINGE IVFLUSH ×2 (15:10→20:22)
[2025-03-24 15:22] VITALS: BP 136/84; PULSE 81; RESP 18; TEMP 36.4; O2SAT 98
--- NOTE | 2025-03-24 16:05 | MHC.CM.PN ---
Careteam consult recommendation is IPLOC. Bed search in progress. Dp INLOC bed via BLS or WC if @ [facility] [place].
--- NOTE | 2025-03-24 17:38 | MHC.SL.SWA ---
Speech Pathologist Impression: Risk of Aspiration Due to: Dysphasia Diet Status: Recommend patient continue on current diet of Puree/Thin liquids pills crushed in puree. Patient should be monitored for intake, if patient persist with refusing food, patient may need alternative nutrition source. Liquid Consistency and Strategies for Safe Swallow: Liquid Intake Recommendation: Thin Liquid Intake Strategies: Solid Food Consistency: Dietary Recommendations: Puree (NDD1_ Additional Modifications to Solid Foods: Oral Medication Intake: Crushed with Puree Please contact the pharmacy regarding appropriate crushable or liquid drug formulations that are available whenever modified delivery is recommended. Compensatory Strategies and Precautions to be Taken for Safe Swallow: Sitting Upright (90 deg) Liquids from Cup Small Bites and Sips Alternate Liquids/Solids Supervision While Eating and Drinking for Safe Swallow: Total Assistance (1:1) Foods to Avoid: Swallowing Recommended Treatments: Compens. Strategy Educat. Recommendation for Speech: Inpatient Speech Therapy Comment: Attempted to assist patient at breakfast. Sitter was present in room. Patient was seated upright in bed, maintained a posture throughout of firmly closed mouth. Patient mostly did not make eye contact, did not respond, repeatedly grunted throughout without verbalizing, though occasionally made very direct eye contact with finishing area operator. On all attempts to provide food to patient, patient batted and pushed away OPHTHALMOLOGY ASSISTANT/spoon. OPHTHALMOLOGY ASSISTANT at one point managed to deposit some food on lips, to observe if patient initiated licking or clearing off lips, with patient giving no response, and OPHTHALMOLOGY ASSISTANT eventually wiping food from lips. OPHTHALMOLOGY ASSISTANT attempted hand over hand support of holding nutritional shake and inviting patient to initiate brining drink to mouth to sip, this persisted for a long period with patient giving no response, and resisting if finishing area operator attempted to initiate lifting container toward mouth. No food or drink was taken throughout this session with patient refusing. Recommend patient continue on current diet of Puree/Thin liquids pills crushed in puree. Patient should be monitored for intake, if patient persist with refusing food, patient may need alternative nutrition source. Frequency/Duration: Daily M-F Date Range for Service Req: Timeline to reassess: Flexo Press Operator Clinican/Clinical Fellow: No Supervisory Statement: I have reviewed and agree with the student/clinical fellow's documentation: N/A Speech Language Pathologist: Cami Gurrola M.A., CCC-OPHTHALMOLOGY ASSISTANT
[2025-03-24 19:50] VITALS: BP 146/84; PULSE 80; RESP 18; TEMP 36.3; O2SAT 97
--- NOTE | 2025-03-24 21:30 | PC.NURSE ---
pt refusing all medications calling them poison . 1:1 sitter in room.
[2025-03-24 23:15] VITALS: BP 137/90; PULSE 89; RESP 18; TEMP 36.3; O2SAT 97
[2025-03-25 04:00] VITALS: BP 146/94; PULSE 110; RESP 18; TEMP 36.3; O2SAT 98
[2025-03-25 06:13] LABS: Anion Gap 14 (12-20); Blood Urea Nitrogen 4 mg/dL (9-16); Calcium 9.5 mg/dL (8.4-10.2); Carbon Dioxide 22 mmol/L (22-29); Chloride 105 mmol/L (96-108); Creatinine Clr Calc Pharmacy 95.8; Estimated Glomerular Filt Rate > 60; Potassium 4.0 mmol/L (3.3-5.1); Sodium 137 mmol/L (135-145)
[2025-03-25 07:28] VITALS: BP 134/79; PULSE 90; RESP 18; TEMP 36.4; O2SAT 97
[2025-03-25] MEDS: 0.9 % Sodium Chloride Flush 3 ML SYRINGE IVFLUSH ×3 (07:58→20:03)
--- NOTE | 2025-03-25 08:13 | PC.NURSE ---
Patient refusing any PO medication at this time, attempted to crush medications in applesauce to administer but patient continuously yelling poison and not taking medication. Pt did allow me to flush IV with NS and auscultate lung sounds. Dr. Hernandez made aware.
--- NOTE | 2025-03-25 09:22 | HO.PM.IMPN ---
Subjective Subjective Date of Service: 03/25/25 Interval History: f/u on altered mental status, uti, bipolar disorder She is awake this morning, but not talking and has refused medications Physical Exam Vital Signs: Vital Signs: Last Vital Signs Temp 97.5 F 03/25/25 07:28 Pulse 90 03/25/25 07:28 Resp 18 03/25/25 07:28 BP 134/79 03/25/25 07:28 Pulse Ox 97 03/25/25 07:28 O2 Del Method Room Air 03/25/25 07:28 BMI result Body Mass Index 25.7 Const: Other: alert,no distresss, confused CVRRR lungs cta abd soft, nd, not ext no edema pysch:flat Objective Data Active Medications Acetaminophen (Acetaminophen 325 Mg Tablet) 650 mg PO Q6H PRN PRN Reason: Pain, Mild 1-3,fever,headache Albuterol/Ipratropium (Albuterol/Iprat 2.5/0.5mg 3 Ml Ampul.Neb) 3 ml INHALE Q4H PRN PRN Reason: Shortness of Breath/Wheezing Benztropine Mesylate (Benztropine Mesylate 0.5 Mg Tablet) 0.5 mg PO BID [facility] Last Admin: 03/25/25 08:16 Dose: Not Given Documented By: SANDRA Non-Admin Reason: Patient Refused Calcium Carbonate (Calcium Carbonate 750 Mg Tab.Chew) 750 mg PO Q4H PRN PRN Reason: Heartburn Ceftriaxone Sodium (Ceftriaxone Sodium 1 Gm Vial) 1 gm IVPUSH Q24H [facility] Last Admin: 03/24/25 17:41 Dose: 1 gm Documented By: OMAR Docusate Sodium (Docusate Sodium 100 Mg Capsule) 100 mg PO BID PRN PRN Reason: Constipation Hydroxyzine HCl (Hydroxyzine Hcl 50 Mg Tablet) 50 mg PO Q4H PRN PRN Reason: Anxiety Last Admin: 03/22/25 17:58 Dose: 50 mg Loperamide HCl (Loperamide Hcl 2 Mg Capsule) 2 mg PO Q6H PRN PRN Reason: Diarrhea Loratadine (Loratadine 10 Mg Tablet) 10 mg PO DAILY [facility] Last Admin: 03/25/25 08:16 Dose: Not Given Documented By: SANDRA Non-Admin Reason: Patient Refused Lorazepam (Lorazepam 0.5 Mg Tablet) 0.5 mg PO TID [facility] Last Admin: 03/25/25 08:16 Dose: Not Given Documented By: SANDRA Non-Admin Reason: Patient Refused Magnesium Hydroxide (Milk Of Magnesia 30 Ml Oral.Susp) 30 ml PO DAILY PRN PRN Reason: Constipation Melatonin (Melatonin 3 Mg Tablet) 3 mg PO BEDTIME PRN PRN Reason: Sleep Mirtazapine (Mirtazapine 15 Mg Tablet) 15 mg PO BEDTIME [facility] Last Admin: 03/24/25 21:02 Dose: Not Given Documented By: ADRIENNE Non-Admin Reason: Patient Refused Omeprazole (Omeprazole 20 Mg Capsule.Dr) 20 mg PO DAILY@0630 [facility] Last Admin: 03/25/25 06:28 Dose: Not Given Documented By: ADRIENNE Non-Admin Reason: Patient Asleep Ondansetron HCl (Ondansetron Hcl 4 Mg/2 Ml Vial) 4 mg IVPUSH Q8H PRN PRN Reason: Nausea and Vomiting Polyethylene Glycol (Polyethylene Glycol 3350 17 Gm Powd.Pack) 17 gm PO DAILY PRN PRN Reason: Constipation Potassium Chloride (Potassium Chloride Packet 20 Meq Packet) 20 meq PO BID [facility] Last Admin: 03/25/25 08:16 Dose: Not Given Documented By: SANDRA Non-Admin Reason: Patient Refused Quetiapine Fumarate (Quetiapine Fumarate 50 Mg Tablet) 50 mg PO BID [facility] Last Admin: 03/25/25 08:16 Dose: Not Given Documented By: SANDRA Non-Admin Reason: Patient Refused Quetiapine Fumarate (Quetiapine Fumarate 400 Mg Tablet) 400 mg PO BEDTIME [facility] Last Admin: 03/24/25 21:02 Dose: Not Given Documented By: ADRIENNE Non-Admin Reason: Patient Refused Senna (Sennosides 8.6 Mg Tablet) 17.2 mg PO BEDTIME [facility] Last Admin: 03/24/25 21:02 Dose: Not Given Documented By: ADRIENNE Non-Admin Reason: Patient Refused Sodium Chloride (0.9 % Sodium Chloride Flush 3 Ml Syringe) 3 ml IVFLUSH QSHIFT [facility] Last Admin: 03/25/25 07:58 Dose: 3 ml Documented By: SANDRA Thiamine HCl (Thiamine Hcl 100 Mg Tablet) 100 mg PO BID [facility] Last Admin: 03/25/25 08:16 Dose: Not Given Documented By: SANDRA Non-Admin Reason: Patient Refused Labs 03/22/25 04:12 03/25/25 05:36 Labs: Laboratory Results - last 24 hr 03/25/25 05:36 Anion Gap 14 Estim Creat Clear Calc 95.8 Estimated GFR > 60 Random Glucose 135 H Calcium 9.5 D Microbiology Microbiology Results: Microbiology 03/21/25 16:46 Urine Culture - Final Urine clean catch - Clean Catch Midstream Aerococcus urinae Assessment and Plan (1) Bipolar 1 disorder: Status: Acute (2) Anxiety: Status: Acute (3) Bipolar 1 disorder, depressed, severe: Status: Acute Plan Pt is a 69 yo female currently nonverbal and unable to provide any HPI, PMH has been diagnosed with UTI in ED and request for admission has been made. After review of patient's medical chart patient has past medical history of UTI, bipolar 1 depression, osteoarthritis, status post cardiac catheterization, anxiety, GERD, insomnia, osteopenia, 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 Patient has been noncompliant with oral medications at [facility] and has been limited with oral intake nutritional strickland for over 1 week. Urinary tract infection infection culture = Aerococcus urinae, no sensitivity routinely done continue ceftriaxone, consider changing to oral Abx Decompensated Bipolar, with alter mental, this morning not responding ? raised about delirium has been refusing meds Psych consult and likely need inpatient hospitalization Psysch recommends For agitation, Olanzapine 5 mg PO or IM as needed. CARE consult, and Psych admission pending mild malnutrition, nutritional consult continue ivf for now HypOkalemia, corrected History of DVT left lower extremity Patient is not on anticoagulation No evidence of DVT at this time Patient can not take Lovenox or heparin due to allergy/rash SCDs ordered GERD PPI DVT prophylaxis: SCD, patient can not take heparin or Lovenox due to allergy/rash, will add xarelto 10 mg daily Full Code status Quality Stroke Does the patient have a stroke diagnosis?: No Reason for No Anti-thrombotic by Day Two: Drug declined by patient VTE Prior VTE?: No VTE Risk Level:: Medical - low VTE Device Contraindication: N/A - Device Ordered VTE Drug Contraindication: N/A - Med Ordered
[2025-03-25 12:00] VITALS: BP 145/88; PULSE 108; RESP 16; TEMP 36.1
--- NOTE | 2025-03-25 13:09 | PC.NURSE ---
loving catheter removed by this RN at 1300, DTV by 1900, catheter intact at time of removal
--- NOTE | 2025-03-25 14:55 | MHC.SLORD ---
Speech Language Pathology Order Status: INDUSTRIAL CLEANING TECHNICIAN attempted dysphagia evaluation x2 today, pt currently on NDD1 with thins. Pt's functional communication is presently significantly impaired. Pt makes adequate eye contact and turns her head toward speakers upon hearing her name, but this is the only indication she is processing verbal language. Palilalia persists, pt is unable to answer simple yes/no questions. hydraulic elevator constructor and RN consulted, pt is not taking any PO. Question the need for alternative nutrition. INDUSTRIAL CLEANING TECHNICIAN continues to follow.
[2025-03-25 15:34] VITALS: BP 153/75; PULSE 109; RESP 14; TEMP 36.9
--- NOTE | 2025-03-25 15:55 | MHC.CM.PN ---
Patient medically cleared 03/24/25. Patient qualifies for IPLOC. The bed search continues. DP IPLOC via BLS vs [place] [facility]
--- NOTE | 2025-03-25 17:16 | PC.NURSE ---
Patient had 1 incontinent/unmeasured void after loving removal, bladder scan at 1700 shows only 39ml in bladder.
[2025-03-25 19:36] VITALS: BP 141/60; PULSE 98; RESP 16; TEMP 36.8; O2SAT 96
--- NOTE | 2025-03-25 22:58 | PC.NURSE ---
pt refusing all po meds. dr miller notified. sitter at bed side, will cont to monitor
[2025-03-26] VITALS (8 sets, daily range): BP systolic 122–186; BP diastolic 59–96; PULSE 68–118; RESP 14–18; TEMP 36.5–38; O2SAT 94–95
--- NOTE | 2025-03-26 03:56 | PC.NURSE ---
pt unable to void? pt uncooperative with care, refusing meds now refusing to speak at this time, unknown if pt needs to urinate, d/t pt uncooperative behavior and combative behavior pt given extra time to urinate with no result. 0230 with 3 staff holding pt, pt bladder scanned for over 340ml. dr miller notified - new order straight cath now - with 4 staff in room, pt straight cathed for 350 ml, will cont to monitor
--- NOTE | 2025-03-26 09:30 | HO.PM.IMPN ---
Subjective Subjective Date of Service: 03/26/25 Interval History: Patient has been refusing meds and food, agitated now BP and HR on high side Physical Exam Vital Signs: Vital Signs: Last Vital Signs Temp 98.8 F 03/26/25 07:23 Pulse 118 H 03/26/25 07:23 Resp 18 03/26/25 07:23 BP 186/96 H 03/26/25 07:23 Pulse Ox 95 03/26/25 04:00 O2 Del Method Room Air 03/26/25 07:23 BMI result Body Mass Index 25.7 Const: Other: alert,no distresss, confused CVRRR lungs cta abd soft, nd, not ext no edema pysch:flat Objective Data Active Medications Acetaminophen (Acetaminophen 325 Mg Tablet) 650 mg PO Q6H PRN PRN Reason: Pain, Mild 1-3,fever,headache Albuterol/Ipratropium (Albuterol/Iprat 2.5/0.5mg 3 Ml Ampul.Neb) 3 ml INHALE Q4H PRN PRN Reason: Shortness of Breath/Wheezing Benztropine Mesylate (Benztropine Mesylate 0.5 Mg Tablet) 0.5 mg PO BID COUNTS INCLUDE 234 BEDS AT THE [facility] Last Admin: 03/25/25 19:52 Dose: Not Given Documented By: BREANNA Non-Admin Reason: Patient Refused Calcium Carbonate (Calcium Carbonate 750 Mg Tab.Chew) 750 mg PO Q4H PRN PRN Reason: Heartburn Ceftriaxone Sodium (Ceftriaxone Sodium 1 Gm Vial) 1 gm IVPUSH Q24H COUNTS INCLUDE 234 BEDS AT THE [facility] Last Admin: 03/25/25 17:05 Dose: 1 gm Documented By: SANDRA Docusate Sodium (Docusate Sodium 100 Mg Capsule) 100 mg PO BID PRN PRN Reason: Constipation Hydroxyzine HCl (Hydroxyzine Hcl 50 Mg Tablet) 50 mg PO Q4H PRN PRN Reason: Anxiety Last Admin: 03/22/25 17:58 Dose: 50 mg Loperamide HCl (Loperamide Hcl 2 Mg Capsule) 2 mg PO Q6H PRN PRN Reason: Diarrhea Loratadine (Loratadine 10 Mg Tablet) 10 mg PO DAILY COUNTS INCLUDE 234 BEDS AT THE [facility] Last Admin: 03/25/25 08:16 Dose: Not Given Documented By: SANDRA Non-Admin Reason: Patient Refused Lorazepam (Lorazepam 1 Mg Tablet) 1 mg PO TID [facility] Magnesium Hydroxide (Milk Of Magnesia 30 Ml Oral.Susp) 30 ml PO DAILY PRN PRN Reason: Constipation Melatonin (Melatonin 3 Mg Tablet) 3 mg PO BEDTIME PRN PRN Reason: Sleep Mirtazapine (Mirtazapine 15 Mg Tablet) 15 mg PO BEDTIME COUNTS INCLUDE 234 BEDS AT THE [facility] Last Admin: 03/25/25 19:52 Dose: Not Given Documented By: BREANNA Non-Admin Reason: Patient Refused Omeprazole (Omeprazole 20 Mg Capsule.) 20 mg PO DAILY@0630 COUNTS INCLUDE 234 BEDS AT THE [facility] Last Admin: 03/26/25 05:08 Dose: Not Given Documented By: BREANNA Non-Admin Reason: Patient Refused Ondansetron HCl (Ondansetron Hcl 4 Mg/2 Ml Vial) 4 mg IVPUSH Q8H PRN PRN Reason: Nausea and Vomiting Polyethylene Glycol (Polyethylene Glycol 3350 17 Gm Powd.Pack) 17 gm PO DAILY PRN PRN Reason: Constipation Potassium Chloride (Potassium Chloride Packet 20 Meq Packet) 20 meq PO BID COUNTS INCLUDE 234 BEDS AT THE [facility] Last Admin: 03/25/25 19:52 Dose: Not Given Documented By: BREANNA Non-Admin Reason: Patient Refused Quetiapine Fumarate (Quetiapine Fumarate 50 Mg Tablet) 50 mg PO BID COUNTS INCLUDE 234 BEDS AT THE [facility] Last Admin: 03/25/25 19:52 Dose: Not Given Documented By: BREANNA Non-Admin Reason: Patient Refused Quetiapine Fumarate (Quetiapine Fumarate 400 Mg Tablet) 400 mg PO BEDTIME COUNTS INCLUDE 234 BEDS AT THE [facility] Last Admin: 03/25/25 19:52 Dose: Not Given Documented By: BREANNA Non-Admin Reason: Patient Refused Rivaroxaban (Rivaroxaban 10 Mg Tablet) 10 mg PO DAILY COUNTS INCLUDE 234 BEDS AT THE [facility] Last Admin: 03/25/25 12:44 Dose: Not Given Documented By: SANDRA Non-Admin Reason: Patient Refused Senna (Sennosides 8.6 Mg Tablet) 17.2 mg PO BEDTIME COUNTS INCLUDE 234 BEDS AT THE [facility] Last Admin: 03/25/25 19:53 Dose: Not Given Documented By: BREANNA Non-Admin Reason: Patient Refused Sodium Chloride (0.9 % Sodium Chloride Flush 3 Ml Syringe) 3 ml IVFLUSH QSHIFT COUNTS INCLUDE 234 BEDS AT THE [facility] Last Admin: 03/25/25 20:03 Dose: 3 ml Documented By: BREANNA Thiamine HCl (Thiamine Hcl 100 Mg Tablet) 100 mg PO BID COUNTS INCLUDE 234 BEDS AT THE [facility] Last Admin: 03/25/25 19:53 Dose: Not Given Documented By: BREANNA Non-Admin Reason: Patient Refused Labs 03/26/25 16:26 03/26/25 16:26 Labs: Laboratory Results - last 24 hr 03/25/25 05:36 Anion Gap 14 Estim Creat Clear Calc 95.8 Estimated GFR > 60 Random Glucose 135 H Calcium 9.5 D Microbiology Microbiology Results: Microbiology 03/21/25 16:46 Urine Culture - Final Urine clean catch - Clean Catch Midstream Aerococcus urinae Assessment and Plan (1) Bipolar 1 disorder: Status: Acute (2) Anxiety: Status: Acute (3) Bipolar 1 disorder, depressed, severe: Status: Acute Plan Pt is a 69 yo female currently nonverbal and unable to provide any HPI, PMH has been diagnosed with UTI in ED and request for admission has been made. After review of patient's medical chart patient has past medical history of UTI, bipolar 1 depression, osteoarthritis, status post cardiac catheterization, anxiety, GERD, insomnia, osteopenia, 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 Patient has been noncompliant with oral medications at [facility] and has been limited with oral intake nutritional strickland for over 1 week. Urinary tract infection infection culture = Aerococcus urinae, no sensitivity routinely done continue ceftriaxone, consider changing to oral Abx Decompensated Bipolar, with alter mental, this morning not responding much and appear catatonia she refusing meds, or not given IV ativan not available, first line catatonia, will try valium and reconsult Psych for close follow up Psysch recommends For agitation, Olanzapine 5 mg PO or IM as needed. CARE consult, and Psych admission pending mild malnutrition, nutritional consult continue ivf for now HypOkalemia, corrected History of DVT left lower extremity Patient is not on anticoagulation No evidence of DVT at this time Patient can not take Lovenox or heparin due to allergy/rash SCDs ordered GERD PPI DVT prophylaxis: SCD, patient can not take heparin or Lovenox due to allergy/rash, will add xarelto 10 mg daily Full Code status Quality Stroke Does the patient have a stroke diagnosis?: No Reason for No Anti-thrombotic by Day Two: Drug declined by patient VTE Prior VTE?: No VTE Risk Level:: Medical - low VTE Device Contraindication: N/A - Device Ordered VTE Drug Contraindication: N/A - Med Ordered
[2025-03-26] MEDS: 0.9 % Sodium Chloride Flush 3 ML SYRINGE IVFLUSH (09:31)
--- NOTE | 2025-03-26 10:14 | PC.NURSE ---
patient continues to refuse PO medications, pt is also not taking in any food and very minimal PO fluids. Dr. Hernandez aware, ordered maintenance IVF LR @125 and IVP 5mg valium
[2025-03-26] MEDS: Lactated Ringers 1,000 ML 125 ML IVCONT ×3 (10:23→23:13)
[2025-03-26] MEDS: diazePAM 10 MG/2 ML CARTRIDGE 5 MG IVPUSH (10:23)
--- NOTE | 2025-03-26 10:49 | MHC.SL.SWA ---
Speech Pathologist Impression: Risk of Aspiration Due to: Dysphasia Diet Status: Recommend patient continue on current diet of Puree/Thin liquids pills crushed in puree. Patient should be monitored for intake, if patient persist with refusing food, patient may need alternative nutrition source. Liquid Consistency and Strategies for Safe Swallow: Liquid Intake Recommendation: Thin Liquid Intake Strategies: Solid Food Consistency: Dietary Recommendations: Pureed (NDD1) Additional Modifications to Solid Foods: Oral Medication Intake: Crushed with Puree Please contact the pharmacy regarding appropriate crushable or liquid drug formulations that are available whenever modified delivery is recommended. Compensatory Strategies and Precautions to be Taken for Safe Swallow: Sitting Upright (90 deg) Liquids from Cup Small Bites and Sips Alternate Liquids/Solids Supervision While Eating and Drinking for Safe Swallow: Total Assistance (1:1) Foods to Avoid: Swallowing Recommended Treatments: Compens. Strategy Educat. Recommendation for Speech: Inpatient Speech Therapy Comment: Attempted to assist patient at breakfast. Sitter was present in room and had started to assist/attempt breakfast with patient. Patient had taken Ensure shake container in hand from sitter, squeezed it and it had squirted and covered patient and some of the bedding. Patient very red in the face this morning, has reddened eyes and lips crusted with dried skin. Patient not speaking during this session, was again grunting somewhat rhythmically. DEVELOPER ARCHITECT offered patient bite of oatmeal from tray, patient batted and pushed away spoon, therapists arm. DEVELOPER ARCHITECT then re-offered shake, patient eventually accepted straw in her mouth but made no effort to propel liquid. DEVELOPER ARCHITECT managed to get sip of shake from container into patient's mouth. Patient then noted to chew the liquid and hold it for a prolonged time in mouth. DEVELOPER ARCHITECT added additional sip, with patient doing similar behavior for a while then initiated swallow. Patient then reached for shake container, grabbed and squeezed the container hard sending the liquid spilling all over patient and bedding again. Patient was visibly shaking, apparently with anger, through this event, stopped after she had squeezed the container. DISPATCHER CHIEF OIL/RN were notified of the spill. Patient is behaviorally resisting being fed, or taking any food or liquid, and has had minimal PO over several days as a result. Will likely need supplemental nutrition, MD/RD contsulted by secure text, RN in person. Frequency/Duration: Daily M-F Date Range for Service Req: Timeline to reassess: Machine Ceramic Coater Clinican/Clinical Fellow: No Supervisory Statement: I have reviewed and agree with the student/clinical fellow's documentation: N/A Speech Language Pathologist: Cami Gurrola M.A., CCC-DEVELOPER ARCHITECT
--- NOTE | 2025-03-26 14:39 | PM.PSYCN ---
History of Present Illness Date of Service: 03/26/2025 Chief Complaint: UTI no to PO ABX Reason for Consult: catatonia Requesting physician: Gaurav Hernandez Discussed with referring provider: Yes Sources of Information: patient interviewed, chart reviewed and crisis/core team assessment reviewed HPI Narrative: Ms. Robertson is a 69 year-old woman who was brought via EMS from [facility] due to not eating, more confused. Pertinent labs completed in the ED include CBC with mildly elevated WBC (11.3), CMP with elevated BUN 46, Cr 1.23. UA with protein, blood, bacteria urine culture positive for Aerococcus urinae. Blood cultures were negative. She was afebrile. Pt seen in the room. She is awake, alert, follows this story writer when her gaze. She does not talk when questions asked. She is forcefully grabbing a doll. Attempts to hold her hands, she hold this story writer's arm with a strong gripped. On exam- some waxy flexibility noted. She is not eating. Noted to be sweating. She did have a low grade temp 104. Repeat cbc showed increase WBC 14. CMP with no electrolyte abnormality, renal function stable and improved from admission. Past Psychiatric History: Inpt: [facility] 09/09/2021 (catatonia), 11/03/2023; 12/24/23; 06/10/24. 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 -Per sister, pt has had depression since her early 20s and has suffered from unspecified chronic pain, surgeries. -Hx of multiple psych admissions to [facility] Past medication trials: seroquel, paliperidone, vraylar. Medical Evaluation Reviewed: Yes [facility] Medical History (Updated 03/26/25 @ 14:40 by Francisca Bajwa NP) Delirium due to another medical condition History of skin cancer Hx of bladder problems VITO (generalized anxiety disorder) Murmur, cardiac Hx of thyroid nodule Osteopenia Hx of skin cancer, basal cell Seasonal allergies Insomnia Constipation GERD (gastroesophageal reflux disease) Anxiety History of electroconvulsive therapy Bipolar 1 disorder Surgical History Hx of colonoscopy H/O elbow surgery History of back surgery Family History: -Depression. In 1998 her great grandfather hung himself. Social History: -Pt has never been , no children. Dog recently . -Pt's mother (age 88), sister, and brother are involved with pt's care. -She graduated h.s. And has bachelors in psychology. She worked at [facility]. Trauma History: deferred Diagnostics Vital Signs (24Hr): Vital Signs - 24 hr 03/25/25 15:34 03/25/25 19:36 03/26/25 04:00 Temperature 98.4 F 98.2 F 97.7 F Pulse Rate 109 H 98 100 Respiratory Rate 14 16 18 Blood Pressure 153/75 H 141/60 H 122/66 Pulse Oximetry 96 95 Oxygen Delivery Method Room Air Room Air 03/26/25 07:23 03/26/25 10:15 03/26/25 11:52 Temperature 98.8 F 98.5 F Pulse Rate 118 H 115 H 115 H Respiratory Rate 18 14 Blood Pressure 186/96 H 163/75 H 124/93 H Pulse Oximetry Oxygen Delivery Method Room Air BMI result Body Mass Index 25.7 Labs 03/27/25 09:19 03/27/25 09:19 Labs: Laboratory Results - last 48 hr 03/25/25 05:36 Sodium 137 Potassium 4.0 Chloride 105 Carbon Dioxide 22 Anion Gap 14 BUN 4 L Creatinine 0.54 Estim Creat Clear Calc 95.8 Estimated GFR > 60 Random Glucose 135 H Calcium 9.5 D Mental Status Exam Mental Status Exam Narrative: Appearance: wearing hospital gown, poor hygiene, disheveled, in NAD Behavior: follow this story writer with gaze, not verbal Psychomotor: waxy flexibility. motor retardation Speech: mute, staring. SI: unable to assess HI: unable to assess VH/AH: unable to assess Delusions: unable to assess Insight/judgment: impaired x 2. Medications Medications Current Medications Acetaminophen (Acetaminophen 325 Mg Tablet) 650 mg PO Q6H PRN PRN Reason: Pain, Mild 1-3,fever,headache Albuterol/Ipratropium (Albuterol/Iprat 2.5/0.5mg 3 Ml Ampul.Neb) 3 ml INHALE Q4H PRN PRN Reason: Shortness of Breath/Wheezing Benztropine Mesylate (Benztropine Mesylate 0.5 Mg Tablet) 0.5 mg PO BID [facility] Last Admin: 03/26/25 09:36 Dose: Not Given Calcium Carbonate (Calcium Carbonate 750 Mg Tab.Chew) 750 mg PO Q4H PRN PRN Reason: Heartburn Ceftriaxone Sodium (Ceftriaxone Sodium 1 Gm Vial) 1 gm IVPUSH Q24H [facility] Last Admin: 03/25/25 17:05 Dose: 1 gm Docusate Sodium (Docusate Sodium 100 Mg Capsule) 100 mg PO BID PRN PRN Reason: Constipation Hydroxyzine HCl (Hydroxyzine Hcl 50 Mg Tablet) 50 mg PO Q4H PRN PRN Reason: Anxiety Last Admin: 03/22/25 17:58 Dose: 50 mg Lactated Ringer's (Lr) 1,000 mls @ 125 mls/hr IVCONT .Q8H [facility] Last Admin: 03/26/25 10:23 Dose: 125 mls/hr Loperamide HCl (Loperamide Hcl 2 Mg Capsule) 2 mg PO Q6H PRN PRN Reason: Diarrhea Loratadine (Loratadine 10 Mg Tablet) 10 mg PO DAILY [facility] Last Admin: 03/26/25 09:36 Dose: Not Given Lorazepam (Lorazepam 1 Mg Tablet) 1 mg PO TID [facility] Magnesium Hydroxide (Milk Of Magnesia 30 Ml Oral.Susp) 30 ml PO DAILY PRN PRN Reason: Constipation Melatonin (Melatonin 3 Mg Tablet) 3 mg PO BEDTIME PRN PRN Reason: Sleep Mirtazapine (Mirtazapine 15 Mg Tablet) 15 mg PO BEDTIME [facility] Last Admin: 03/25/25 19:52 Dose: Not Given Omeprazole (Omeprazole 20 Mg Capsule.Dr) 20 mg PO DAILY@0630 [facility] Last Admin: 03/26/25 05:08 Dose: Not Given Ondansetron HCl (Ondansetron Hcl 4 Mg/2 Ml Vial) 4 mg IVPUSH Q8H PRN PRN Reason: Nausea and Vomiting Polyethylene Glycol (Polyethylene Glycol 3350 17 Gm Powd.Pack) 17 gm PO DAILY PRN PRN Reason: Constipation Potassium Chloride (Potassium Chloride Packet 20 Meq Packet) 20 meq PO BID [facility] Last Admin: 03/26/25 09:36 Dose: Not Given Quetiapine Fumarate (Quetiapine Fumarate 50 Mg Tablet) 50 mg PO BID [facility] Last Admin: 03/26/25 09:37 Dose: Not Given Quetiapine Fumarate (Quetiapine Fumarate 400 Mg Tablet) 400 mg PO BEDTIME [facility] Last Admin: 03/25/25 19:52 Dose: Not Given Rivaroxaban (Rivaroxaban 10 Mg Tablet) 10 mg PO DAILY [facility] Last Admin: 03/26/25 09:37 Dose: Not Given Senna (Sennosides 8.6 Mg Tablet) 17.2 mg PO BEDTIME [facility] Last Admin: 03/25/25 19:53 Dose: Not Given Sodium Chloride (0.9 % Sodium Chloride Flush 3 Ml Syringe) 3 ml IVFLUSH QSHIFT [facility] Last Admin: 03/26/25 09:31 Dose: 3 ml Thiamine HCl (Thiamine Hcl 100 Mg Tablet) 100 mg PO BID [facility] Last Admin: 03/26/25 09:37 Dose: Not Given Allergies Allergies Allergy/AdvReac Type Severity Reaction Status Date / Time bee pollen Allergy Severe Anaphylaxis Verified 03/21/25 14:48 levofloxacin (From Levaquin) Allergy Severe Itching Verified 03/21/25 14:48 enoxaparin (From Lovenox) Allergy Intermediate Rash Verified 03/21/25 14:48 Seasonal Allergies Allergy Mild Runny Nose Verified 03/21/25 14:48 venlafaxine (From Effexor) Allergy Mild Constipatio Verified 03/21/25 14:48 n Penicillins Allergy Unknown Unknown Verified 03/21/25 14:48 Assessment & Plan Assessment & Plan (1) Catatonia: Status: Acute Code(s): F06.1 - Catatonic disorder due to known physiological condition (2) Bipolar 1 disorder: Status: Acute Code(s): F31.9 - Bipolar disorder, unspecified Plan Ms. Robertson is a 69 year-old woman with hx of schizoaffective versus bipolar disorder who is know to [facility] ED previous admission with similar presentation. She usually presents with combination of excitatory catatonia/ catatonia. It may start with patient presenting more organized with paranoid and evangelical delusions, at times also somatic delusions, then progresses to excitatory catatonia or hypoactive catatonia. She currently presents with s/s hypoactive catatonia- mutism, staring, negative, waxy flexibility, strong plater helper. Very minimal oral intake, renal function improved with fluids but may need artificial nutrition if no oral intake. This story writer spoke with KSENIA Rodrgiuez ([phone]) to discuss treatment of catatonia including ECT. PLAN 1. Pt has an affirmed HCP- copy is in the chart. Pt does NOT have capacity to make medical decisions. 2. Trial of diazepam IV, while awaiting ECT. Discussed with Dr. Rangel ECT. 3. DVT prophylaxis 4. Monitor aspiration- today elevation in WBC, febrile but low grade. CKP less than 1000. Do not suspect at this point complications of catatonia at this time. 5. AVOID ANY HIGH POTENCY ANTIPSYCHOTICS as they will worsen catatonia including haldol, prolixin. DO NOT overuse ANTIPSYCHOTICS 6. Limited oral intake, although has been receiving IV hydration. If this continues MAY need to think about artificial nutrition. 7. EVEntually needs transfer to psych unit for further treatment, stabilization, safety and containment. Need to go to psych unit with ECT treatment. Total time managing care of this patient today ____ minutes.
[2025-03-26 16:30] LABS: MANUAL DIFF FLAG NO
[2025-03-26 16:38] LABS: Hematocrit 41.0 % (37.0-47.0); Hemoglobin 14.0 g/dl (12.0-16.0); Imm Gran Abs Auto 0.11 X10*3/uL (0.00-0.03); Imm Gran Pct Auto 0.8 % (0.0-0.4); Lymphocytes Absolute Auto 1.7 X10*3/uL (1.2-4.9); Mean Corpuscular HGB Conc 34.1 g/dl (31.0-35.0); Mean Corpuscular Hemoglobin 30.2 pg (27.0-33.0); Mean Corpuscular Volume 88.6 fL (80.0-98.0); NRBC Abs Auto 0.000 X10*3/uL (0.0-0.012); NRBC Pct Auto 0.0 /100WBC (0.0-0.2); Platelet Count 268 X10*3/uL (160-400); Red Blood Count 4.63 X10*6/uL (4.20-5.50); White Blood Count 14.6 X10*3/uL (4.8-10.8)
[2025-03-26 16:56] LABS: Alanine Aminotransferase 24 U/L (0-31); Albumin Level 3.7 g/dL (3.5-5.0); Alkaline Phosphatase 119 U/L (39-117); Anion Gap 19 (12-20); Aspartate Amino Transferase 36 U/L (5-31); Blood Urea Nitrogen 12 mg/dL (9-16); Calcium 9.4 mg/dL (8.4-10.2); Carbon Dioxide 19 mmol/L (22-29); Chloride 103 mmol/L (96-108); Creatinine Clr Calc Pharmacy 90.7; Estimated Glomerular Filt Rate > 60; Potassium 4.3 mmol/L (3.3-5.1); Sodium 137 mmol/L (135-145); Total Protein 6.8 g/dL (6.5-8.0)
[2025-03-26] MEDS: diazePAM 10 MG/2 ML CARTRIDGE IVPUSH (17:06)
[2025-03-26] MEDS: diazePAM 10 MG/2 ML CARTRIDGE 2.5 MG IVPUSH (22:58)
--- NOTE | 2025-03-26 23:21 | MHC.PIE ---
p; pt unable to void? pt confused, unable to follow orders. pt bladder scanned for over 500ml - note; took 4 staff to hold pt down for bladder scan, per previous rn, pt didn't urinate on previous shift. i; dr miller notified. new order loving cath now, iv valium now e; iv valium given, took 5 staff for safe loving insertion, will cont to monitor
[2025-03-27] VITALS (10 sets, daily range): BP systolic 88–161; BP diastolic 50–88; PULSE 67–104; RESP 12–20; TEMP 35.9–36.9; O2SAT 92–97
[2025-03-27] MEDS: OLANZapine 10 MG VIAL 5 MG IM ×2 (01:14→05:41)
--- NOTE | 2025-03-27 01:18 | MHC.PIE ---
p; pt pulled out iv even with sitter in room yelling she wants to be with god trying to pull out loving and trying to jump out of bed numerous times. note; took 4 staff to hold pt to place new iv site. i; dr miller notified. new order im zyprexa now e; will cont to monitor
[2025-03-27] MEDS: Lactated Ringers 1,000 ML 125 ML IVCONT ×3 (05:43→21:54)
--- NOTE | 2025-03-27 05:45 | MHC.PIE ---
p; pt agitated, anxious and restless once again, trying to jump out of bed and trying to pull out iv and loving numerous times with yelling for god and water . note; pt offered water numerous times by many different staff using cups, straws and water jugs but pt turns head and closes mouth tightly refusing to drink water but still cont to yell for water i; dr miller notified. new order im zyprexa now e; will cont to monitor
--- NOTE | 2025-03-27 09:21 | HO.PM.IMPN ---
Subjective Subjective Date of Service: 03/27/25 Interval History: Less agitated, and now talking Physical Exam Vital Signs: Vital Signs: Last Vital Signs Temp 98.2 F 03/27/25 07:55 Pulse 104 H 03/27/25 07:55 Resp 20 03/27/25 07:55 BP 137/83 03/27/25 07:55 Pulse Ox 92 03/27/25 07:55 O2 Del Method Room Air 03/27/25 07:55 BMI result Body Mass Index 25.7 Const: Other: alert, some agitation, talking today, confused CVRRR lungs cta abd soft, nd, not ext no edema pysch:flat Objective Data Active Medications Acetaminophen (Acetaminophen 325 Mg Tablet) 650 mg PO Q6H PRN On Hold: 03/26/25 15:06 PRN Reason: Pain, Mild 1-3,fever,headache Albuterol/Ipratropium (Albuterol/Iprat 2.5/0.5mg 3 Ml Ampul.Neb) 3 ml INHALE Q4H PRN PRN Reason: Shortness of Breath/Wheezing Benztropine Mesylate (Benztropine Mesylate 0.5 Mg Tablet) 0.5 mg PO BID [facility] Last Admin: 03/26/25 20:11 Dose: Not Given Documented By: BREANNA Non-Admin Reason: Patient Refused Calcium Carbonate (Calcium Carbonate 750 Mg Tab.Chew) 750 mg PO Q4H PRN PRN Reason: Heartburn Ceftriaxone Sodium (Ceftriaxone Sodium 1 Gm Vial) 1 gm IVPUSH Q24H [facility] Last Admin: 03/26/25 17:07 Dose: 1 gm Documented By: SANDRA Docusate Sodium (Docusate Sodium 100 Mg Capsule) 100 mg PO BID PRN PRN Reason: Constipation Fondaparinux (Fondaparinux Sodium 2.5 Mg/0.5 Ml Syringe) 2.5 mg SUBCUT Q24H [facility] Last Admin: 03/26/25 17:25 Dose: 2.5 mg Documented By: SANDRA Hydroxyzine HCl (Hydroxyzine Hcl 50 Mg Tablet) 50 mg PO Q4H PRN PRN Reason: Anxiety Last Admin: 03/22/25 17:58 Dose: 50 mg Lactated Ringer's (Lr) 1,000 mls @ 125 mls/hr IVCONT .Q8H [facility] Last Admin: 03/27/25 05:43 Dose: 125 mls/hr Documented By: BREANNA Acetaminophen (Ofirmev) 1,000 mg in 100 mls @ 400 mls/hr IV Q6H PRN PRN Reason: Fever >100.4 Stop: 03/27/25 10:14 Last Infusion: 03/26/25 16:28 Dose: Infused Documented By: SANDRA Loperamide HCl (Loperamide Hcl 2 Mg Capsule) 2 mg PO Q6H PRN PRN Reason: Diarrhea Loratadine (Loratadine 10 Mg Tablet) 10 mg PO DAILY [facility] Last Admin: 03/26/25 09:36 Dose: Not Given Documented By: SANDRA Non-Admin Reason: Patient Refused Lorazepam (Lorazepam 1 Mg Tablet) 1 mg PO TID [facility] Last Admin: 03/26/25 20:11 Dose: Not Given Documented By: BREANNA Non-Admin Reason: Patient Refused Magnesium Hydroxide (Milk Of Magnesia 30 Ml Oral.Susp) 30 ml PO DAILY PRN PRN Reason: Constipation Melatonin (Melatonin 3 Mg Tablet) 3 mg PO BEDTIME PRN PRN Reason: Sleep Mirtazapine (Mirtazapine 15 Mg Tablet) 15 mg PO BEDTIME [facility] Last Admin: 03/26/25 20:11 Dose: Not Given Documented By: BREANNA Non-Admin Reason: Patient Refused Omeprazole (Omeprazole 20 Mg Capsule.Dr) 20 mg PO DAILY@0630 [facility] Last Admin: 03/27/25 05:41 Dose: Not Given Documented By: BREANNA Non-Admin Reason: Patient Refused Ondansetron HCl (Ondansetron Hcl 4 Mg/2 Ml Vial) 4 mg IVPUSH Q8H PRN PRN Reason: Nausea and Vomiting Polyethylene Glycol (Polyethylene Glycol 3350 17 Gm Powd.Pack) 17 gm PO DAILY PRN PRN Reason: Constipation Potassium Chloride (Potassium Chloride Packet 20 Meq Packet) 20 meq PO BID [facility] Last Admin: 03/26/25 20:11 Dose: Not Given Documented By: BREANNA Non-Admin Reason: Patient Refused Quetiapine Fumarate (Quetiapine Fumarate 50 Mg Tablet) 50 mg PO BID [facility] Last Admin: 03/26/25 20:11 Dose: Not Given Documented By: BREANNA Non-Admin Reason: Patient Refused Quetiapine Fumarate (Quetiapine Fumarate 400 Mg Tablet) 400 mg PO BEDTIME [facility] Last Admin: 03/26/25 20:11 Dose: Not Given Documented By: BREANNA Non-Admin Reason: Patient Refused Senna (Sennosides 8.6 Mg Tablet) 17.2 mg PO BEDTIME [facility] Last Admin: 03/26/25 20:11 Dose: Not Given Documented By: BREANNA Non-Admin Reason: Patient Refused Sodium Chloride (0.9 % Sodium Chloride Flush 3 Ml Syringe) 3 ml IVFLUSH QSHIFT [facility] Last Admin: 03/26/25 20:12 Dose: Not Given Documented By: BREANNA Non-Admin Reason: IV Running Thiamine HCl (Thiamine Hcl 100 Mg Tablet) 100 mg PO BID [facility] Last Admin: 03/26/25 20:11 Dose: Not Given Documented By: BREANNA Non-Admin Reason: Patient Refused Labs 03/26/25 16:26 03/26/25 16:26 Labs: Laboratory Results - last 24 hr 03/26/25 16:26 MCV 88.6 MCH 30.2 MCHC 34.1 RDW 13.8 Plt Count 268 MPV 8.5 L Immature Gran % (Auto) 0.8 H Neut % (Auto) 77.9 H Lymph % (Auto) 11.4 L Haines % (Auto) 9.4 Eos % (Auto) 0.1 Baso % (Auto) 0.4 Lymph # (Auto) 1.7 Haines # (Auto) 1.4 H Eos # (Auto) 0.0 Baso # (Auto) 0.1 Abs Immat Gran (auto) 0.11 H Absolute Neuts (auto) 11.4 H Absolute Nucleated RBC 0.000 Nucleated RBC % (auto) 0.0 Anion Gap 19 Estim Creat Clear Calc 90.7 Estimated GFR > 60 Random Glucose 89 Calcium 9.4 Total Bilirubin 0.4 AST 36 H ALT 24 Alkaline Phosphatase 119 H Total Creatine Kinase 325 H Total Protein 6.8 Albumin 3.7 Microbiology Microbiology Results: Microbiology 03/21/25 18:11 Blood Culture - Final Blood - Venous No growth after 5 days. 03/21/25 18:07 Blood Culture - Final Blood - Venous No growth after 5 days. Assessment and Plan (1) Bipolar 1 disorder: Status: Acute (2) Anxiety: Status: Acute (3) Bipolar 1 disorder, depressed, severe: Status: Acute Plan The patient is a 69-year-old female, currently nonverbal and unable to provide a history. She was diagnosed with a urinary tract infection in the ED, and admission has been requested. Chart review reveals a past medical history significant for recurrent UTIs, bipolar I disorder with depression, osteoarthritis, status post cardiac catheterization, anxiety, GERD, insomnia, osteopenia, and a prior DVT of the left tibial vein (no longer on anticoagulation). At [facility], she has been noncompliant with oral medications and has had poor oral nutritional intake for over one week. Urinary Tract Infection Urine culture grew?Aerococcus urinae; sensitivities are not routinely performed. Continue ceftriaxone for now. Consider transition to oral antibiotics if the patient is clinically stable and able to tolerate oral intake. Catatonia. The patient presented with decompensated bipolar disorder, altered mental status, and catatonia, refusing medications, food, and interventions. She has shown significant improvement today following IV benzodiazepine (Valium) administration. If able to tolerate oral intake, we will transition to Ativan, which is preferred as first-line therapy for catatonia. Current treatment with Valium will be continued per Psychiatry recommendations. Given her history of positive response, ECT will ultimately be needed. Once medically stabilized, she will require psychiatric admission for further management. mild malnutrition, nutritional consult continue ivf for now HypOkalemia, corrected History of DVT left lower extremity Patient is not on anticoagulation No evidence of DVT at this time Patient can not take Lovenox or heparin due to allergy/rash SCDs ordered GERD PPI DVT prophylaxis: SCD, patient can not take heparin or Lovenox due to allergy/rash, will add xarelto 10 mg daily Full Code status Quality Stroke Does the patient have a stroke diagnosis?: No Reason for No Anti-thrombotic by Day Two: Drug declined by patient VTE Prior VTE?: No VTE Risk Level:: Medical - low VTE Device Contraindication: N/A - Device Ordered VTE Drug Contraindication: N/A - Med Ordered
[2025-03-27 09:56] LABS: Hematocrit 37.1 % (37.0-47.0); Hemoglobin 13.0 g/dl (12.0-16.0); Mean Corpuscular HGB Conc 35.0 g/dl (31.0-35.0); Mean Corpuscular Hemoglobin 30.3 pg (27.0-33.0); Mean Corpuscular Volume 86.5 fL (80.0-98.0); NRBC Abs Auto 0.000 X10*3/uL (0.0-0.012); NRBC Pct Auto 0.0 /100WBC (0.0-0.2); Platelet Count 255 X10*3/uL (160-400); Red Blood Count 4.29 X10*6/uL (4.20-5.50); White Blood Count 11.7 X10*3/uL (4.8-10.8)
[2025-03-27 10:11] LABS: Anion Gap 18 (12-20); Blood Urea Nitrogen 8 mg/dL (9-16); Calcium 9.1 mg/dL (8.4-10.2); Carbon Dioxide 22 mmol/L (22-29); Chloride 104 mmol/L (96-108); Creatinine Clr Calc Pharmacy 103.4; Estimated Glomerular Filt Rate > 60; Potassium 3.8 mmol/L (3.3-5.1); Sodium 140 mmol/L (135-145)
--- NOTE | 2025-03-27 10:42 | P.CNPS_ITS ---
History of Present Illness Date of Service: 03/27/2025 Chief Complaint: UTI no to PO ABX Reason for Consult: catatonia Requesting physician: Gaurav Hernandez Discussed with referring provider: Yes Sources of Information: patient interviewed, chart reviewed and crisis/core team assessment reviewed HPI Narrative: Interim Hx: Pt received 10mg IV of diazepam yesterday. She received additional dose later at night with low dose olanzapine. She is more verbal today although speech marked by echolalia and perseveration of speech such as saying things like sorry, sorry, sorry She continues with forced grasping,follows this insurance writer with gaze, opposition of movement by resisting passive movement of body with same pressure as applied (Gegenhalten). She did agree to take medications this morning. No oral intake however. Labs completed today- decrease of WBC to Past Psychiatric History: Inpt: [facility] [facility] 09/09/2021 (catatonia), 11/03/2023; 12/24/23; 06/10/24. 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 -Per sister, pt has had depression since her early 20s and has suffered from unspecified chronic pain, surgeries. -Hx of multiple psych admissions to [facility] Past medication trials: seroquel, paliperidone, vraylar. [facility] Medical History (Updated 03/26/25 @ 14:40 by Francisca Bajwa NP) Delirium due to another medical condition History of skin cancer Hx of bladder problems VITO (generalized anxiety disorder) Murmur, cardiac Hx of thyroid nodule Osteopenia Hx of skin cancer, basal cell Seasonal allergies Insomnia Constipation GERD (gastroesophageal reflux disease) Anxiety History of electroconvulsive therapy Bipolar 1 disorder Surgical History Hx of colonoscopy H/O elbow surgery History of back surgery Family History: -Depression. In 1998 her great grandfather hung himself. Social History: -Pt has never been , no children. Dog recently . -Pt's mother (age 88), sister, and brother are involved with pt's care. -She graduated h.s. And has bachelors in psychology. She worked at [facility]. Trauma History: deferred Diagnostics Vital Signs (24Hr): Vital Signs - 24 hr 03/26/25 11:52 03/26/25 14:52 03/26/25 15:15 Temperature 98.5 F 100.4 F Pulse Rate 115 H 108 H Respiratory Rate 14 14 Blood Pressure 124/93 H 157/69 H Pulse Oximetry 94 Oxygen Delivery Method Room Air 03/26/25 17:20 03/26/25 20:00 03/27/25 00:00 Temperature 100.3 F 99.8 F 96.6 F L Pulse Rate 68 77 Respiratory Rate 18 20 Blood Pressure 158/59 H 160/50 H Pulse Oximetry 95 97 Oxygen Delivery Method Room Air Room Air 03/27/25 03:34 03/27/25 04:00 03/27/25 07:55 Temperature 97.1 F 97.1 F 98.2 F Pulse Rate 99 104 H Respiratory Rate 18 20 Blood Pressure 161/70 H 137/83 Pulse Oximetry 97 92 Oxygen Delivery Method Room Air Room Air BMI result Body Mass Index 25.7 Labs 03/27/25 09:19 03/27/25 09:19 Labs: Laboratory Results - last 48 hr 03/26/25 03/27/25 16:26 09:19 WBC 14.6 H 11.7 H RBC 4.63 D 4.29 Hgb 14.0 D 13.0 Hct 41.0 D 37.1 MCV 88.6 86.5 MCH 30.2 30.3 MCHC 34.1 35.0 RDW 13.8 13.7 Plt Count 268 255 MPV 8.5 L 8.4 L Immature Gran % (Auto) 0.8 H Neut % (Auto) 77.9 H Lymph % (Auto) 11.4 L Navarro % (Auto) 9.4 Eos % (Auto) 0.1 Baso % (Auto) 0.4 Lymph # (Auto) 1.7 Navarro # (Auto) 1.4 H Eos # (Auto) 0.0 Baso # (Auto) 0.1 Abs Immat Gran (auto) 0.11 H Absolute Neuts (auto) 11.4 H Absolute Nucleated RBC 0.000 0.000 Nucleated RBC % (auto) 0.0 0.0 Sodium 137 140 Potassium 4.3 3.8 Chloride 103 104 Carbon Dioxide 19 L 22 Anion Gap 19 18 BUN 12 8 L Creatinine 0.57 0.50 Estim Creat Clear Calc 90.7 103.4 Estimated GFR > 60 > 60 Random Glucose 89 79 Calcium 9.4 9.1 Total Bilirubin 0.4 AST 36 H ALT 24 Alkaline Phosphatase 119 H Total Creatine Kinase 325 H Total Protein 6.8 Albumin 3.7 Mental Status Exam Mental Status Exam Narrative: Appearance: wearing hospital gown, poor hygiene, disheveled, in NAD Behavior: follow this insurance writer with gaze, more verbal but speech not relevant to conversation Psychomotor: waxy flexibility. less motor retardation Speech:more verbal but marked but perseveration of words/some echolalia Affect: constricted, expressionless SI: unable to assess HI: unable to assess VH/AH: unable to assess Delusions: unable to assess Insight/judgment: impaired x 2. Medications Medications Current Medications Acetaminophen (Acetaminophen 325 Mg Tablet) 650 mg PO Q6H PRN On Hold: 03/26/25 15:06 PRN Reason: Pain, Mild 1-3,fever,headache Albuterol/Ipratropium (Albuterol/Iprat 2.5/0.5mg 3 Ml Ampul.Neb) 3 ml INHALE Q4H PRN PRN Reason: Shortness of Breath/Wheezing Calcium Carbonate (Calcium Carbonate 750 Mg Tab.Chew) 750 mg PO Q4H PRN PRN Reason: Heartburn Ceftriaxone Sodium (Ceftriaxone Sodium 1 Gm Vial) 1 gm IVPUSH Q24H [facility] Last Admin: 03/26/25 17:07 Dose: 1 gm Diazepam (Diazepam 10 Mg/2 Ml Cartridge) 10 mg IVPUSH TID [facility] Docusate Sodium (Docusate Sodium 100 Mg Capsule) 100 mg PO BID PRN PRN Reason: Constipation Fondaparinux (Fondaparinux Sodium 2.5 Mg/0.5 Ml Syringe) 2.5 mg SUBCUT Q24H [facility] Last Admin: 03/26/25 17:25 Dose: 2.5 mg Lactated Ringer's (Lr) 1,000 mls @ 125 mls/hr IVCONT .Q8H [facility] Last Admin: 03/27/25 05:43 Dose: 125 mls/hr Loperamide HCl (Loperamide Hcl 2 Mg Capsule) 2 mg PO Q6H PRN PRN Reason: Diarrhea Magnesium Hydroxide (Milk Of Magnesia 30 Ml Oral.Susp) 30 ml PO DAILY PRN PRN Reason: Constipation Melatonin (Melatonin 3 Mg Tablet) 3 mg PO BEDTIME PRN PRN Reason: Sleep Mirtazapine (Mirtazapine 15 Mg Tablet) 15 mg PO BEDTIME [facility] Last Admin: 03/26/25 20:11 Dose: Not Given Omeprazole (Omeprazole 20 Mg Capsule.Dr) 20 mg PO DAILY@0630 [facility] Last Admin: 03/27/25 05:41 Dose: Not Given Ondansetron HCl (Ondansetron Hcl 4 Mg/2 Ml Vial) 4 mg IVPUSH Q8H PRN PRN Reason: Nausea and Vomiting Polyethylene Glycol (Polyethylene Glycol 3350 17 Gm Powd.Pack) 17 gm PO DAILY PRN PRN Reason: Constipation Potassium Chloride (Potassium Chloride Packet 20 Meq Packet) 20 meq PO BID [facility] Last Admin: 03/27/25 10:37 Dose: Not Given Senna (Sennosides 8.6 Mg Tablet) 17.2 mg PO BEDTIME [facility] Last Admin: 03/26/25 20:11 Dose: Not Given Sodium Chloride (0.9 % Sodium Chloride Flush 3 Ml Syringe) 3 ml IVFLUSH QSHIFT [facility] Last Admin: 03/27/25 10:21 Dose: Not Given Thiamine HCl (Thiamine Hcl 100 Mg Tablet) 100 mg PO BID [facility] Last Admin: 03/27/25 10:37 Dose: Not Given Allergies Allergies Allergy/AdvReac Type Severity Reaction Status Date / Time bee pollen Allergy Severe Anaphylaxis Verified 03/21/25 14:48 levofloxacin (From Levaquin) Allergy Severe Itching Verified 03/21/25 14:48 enoxaparin (From Lovenox) Allergy Intermediate Rash Verified 03/21/25 14:48 Seasonal Allergies Allergy Mild Runny Nose Verified 03/21/25 14:48 venlafaxine (From Effexor) Allergy Mild Constipatio Verified 03/21/25 14:48 n Penicillins Allergy Unknown Unknown Verified 03/21/25 14:48 Assessment & Plan Assessment & Plan (1) Catatonia: Status: Acute Code(s): F06.1 - Catatonic disorder due to known physiological condition (2) Bipolar 1 disorder: Status: Acute Code(s): F31.9 - Bipolar disorder, unspecified Plan Ms. Robertson is a 69 year-old woman with hx of schizoaffective versus bipolar disorder who is know to [facility] ED previous admission with similar presentation. She usually presents with combination of excitatory catatonia/ catatonia. It may start with patient presenting more organized with paranoid and yazidi delusions, at times also somatic delusions, then progresses to excitatory catatonia or hypoactive catatonia. She currently presents with s/s hypoactive catatonia- mutism, staring, negative, waxy flexibility, strong white sidewall tire buffer. Very minimal oral intake, renal function improved with fluids but may need artificial nutrition if no oral intake. This insurance writer spoke with HCP- Jennifer ([phone]) to discuss treatment of catatonia including ECT. PLAN 1. Pt has an affirmed HCP- copy is in the chart. Pt does NOT have capacity to make medical decisions. 2. Trial of diazepam IV, while awaiting ECT. Discussed with Dr. Rangel ECT. 3. DVT prophylaxis 4. Monitor aspiration- today elevation in WBC, febrile but low grade. CKP less than 1000. Do not suspect at this point complications of catatonia at this time. 5. AVOID ANY HIGH POTENCY ANTIPSYCHOTICS as they will worsen catatonia including haldol, prolixin. DO NOT overuse ANTIPSYCHOTICS 6. Limited oral intake, although has been receiving IV hydration. If this continues MAY need to think about artificial nutrition. 7. EVEntually needs transfer to psych unit for further treatment, stabilization, safety and containment. Need to go to psych unit with ECT treatment. 03/27- Pt received diazepam 10mg IV last evening, seem to present with some improvement in that she is more verbal and did accept oral medication this morning but no oral intake. She continues to present with s/s of catatonia including: forced grasping,follows this insurance writer with gaze, opposition of movement by resisting passive movement of body with same pressure as applied (Gegenhal[place]), some mild waxy flexibility, negativism, speech with perseveration and echolalia. Not febrile today, decrease in WBC. * While awaiting ECT- schedule diazepam 10mg IV TID. d/c seroquel, d/c manjinder. Will add low dose olanzapine 2.5mg IV/IM BID- higher doses may exacerbate catatonia. * continue to monitor oral intake and consider artificial nutrition if continues to have no oral intake. * remember that patient has an INVOKED and AFFIRMED HCP- Jennifer sister and copy is in the chart. She does not have capacity to make medication decisions. Total time managing care of this patient today __35__ minutes.
--- NOTE | 2025-03-27 10:42 | PC.NURSE ---
Attempted to medicate patient - used chocolate ice cream. When approaching patient with spoon, patient would turn head but when spoon was touched to lips patient voluntarily opened mouth and spoon was easily placed in mouth, patient closed lips, took and swallowed the chocolate ice cream. I was able to do this with the 2 medications administered per AUG, crushed in the ice cream. After second medication administration, patient began swatting nurse's hand away with spoon and was not receptive to taking the ice cream off the spoon. Attempted to give patient juice but patient would not open mouth to drink. 1:[address] for patient safety.
[2025-03-27] MEDS: diazePAM 10 MG/2 ML CARTRIDGE IVPUSH (11:02)
--- NOTE | 2025-03-27 12:21 | MHC.CM.PN ---
Per MD rounds if patient will accept PO medication, she will be medically cleared. See RN note. DP INPLOC via BLS vs wc if bed @ [facility].
--- NOTE | 2025-03-27 14:07 | MHC.SLORD ---
Speech Language Pathology Order Status: Attempted to see patient at lunch. RN had been successful in administering meds in chocolate ice cream earlier, Patient was medicated and sleeping soundly. No attempt to feed/observe given today by SUPERINTENDENT CIRCUS.
[2025-03-27] MEDS: 0.9 % Sodium Chloride Flush 3 ML SYRINGE IVFLUSH (14:33)
--- NOTE | 2025-03-27 16:20 | PC.NURSE ---
[facility] aware of vital signs and patient sleeping throughout shift after IV Valium administered, provider came to bedside and assessed patient, no new orders.
[2025-03-27] MEDS: diazePAM 10 MG/2 ML CARTRIDGE 2 MG IVPUSH (18:34)
--- NOTE | 2025-03-27 18:37 | PC.NURSE ---
Patient restless, attempting to pull out loving catheter, griping her baby doll and clenching jaw, patient repetitively stating I want to be with god . 1:[address], PIPED POCKET MACHINE OPERATOR also at bedside attempting to prevent patient from removing loving catheter and praying with and talking to patient to help relax patient. Brief placed on patient to prevent loving removal. Provider David messaged via [employer] regarding patient, provider ordered to give 21:00 Valium dose now.
[2025-03-27] MEDS: OLANZapine 10 MG VIAL 2.5 MG IM (21:55)
[2025-03-27] MEDS: Potassium Chloride Packet 20 MEQ PACKET PO (21:55)
[2025-03-28] MEDS: Lactated Ringers 1,000 ML 125 ML IVCONT (05:34)
--- NOTE | 2025-03-28 05:39 | PC.NURSE ---
Patient before falling asleep last night, took her medications crushed, ate a serving of chocolate ice cream, drank 2 cups of apple juice and requested and ate a chicken salad sandwich. Pt slept 8-10 hours overnight, self positioning self in bed. Patient did not make conversation but only speaking to make needs known for water or sandwich. Pt oriented to name only, and appeared suspicious as thought you put something in my water . VSS. Care ongoing and 1:[address] for patient and tube safety.
[2025-03-28 07:05] VITALS: BP 108/51; PULSE 81; RESP 18; TEMP 36.8; O2SAT 94
[2025-03-28] MEDS: Potassium Chloride Packet 20 MEQ PACKET PO (08:35)
[2025-03-28] MEDS: OLANZapine 10 MG VIAL 2.5 MG IM ×2 (08:36→21:52)
[2025-03-28] MEDS: diazePAM 10 MG/2 ML CARTRIDGE 2 MG IVPUSH ×2 (08:36→14:58)
[2025-03-28 09:58] LABS: Hematocrit 33.4 % (37.0-47.0); Hemoglobin 11.6 g/dl (12.0-16.0); Mean Corpuscular HGB Conc 34.7 g/dl (31.0-35.0); Mean Corpuscular Hemoglobin 30.7 pg (27.0-33.0); Mean Corpuscular Volume 88.4 fL (80.0-98.0); NRBC Abs Auto 0.000 X10*3/uL (0.0-0.012); NRBC Pct Auto 0.0 /100WBC (0.0-0.2); Platelet Count 228 X10*3/uL (160-400); Red Blood Count 3.78 X10*6/uL (4.20-5.50); White Blood Count 9.9 X10*3/uL (4.8-10.8)
--- NOTE | 2025-03-28 10:11 | P.PNIM_ITS ---
Subjective Subjective Date of Service: 03/28/25 Interval History: Eyes closed, not responding to verbal communications, has not been eating, wax and wane from being awake and sleeping, and agitation sitter remains in place Physical Exam 2 Exam: Exam: not talking, no agitation this morning, no focal neuro deficit, rest of exam unremarkable. Vital Signs: Vital Signs: Last Vital Signs Temp 98.2 F 03/28/25 07:05 Pulse 81 03/28/25 07:05 Resp 18 03/28/25 07:05 BP 108/51 L 03/28/25 07:05 Pulse Ox 94 03/28/25 07:05 O2 Del Method Room Air 03/28/25 07:05 BMI result Body Mass Index 25.7 Const: Other: alert, some agitation, talking today, confused CVRRR lungs cta abd soft, nd, not ext no edema pysch:flat Objective Data Active Medications Acetaminophen (Acetaminophen 325 Mg Tablet) 650 mg PO Q6H PRN On Hold: 03/26/25 15:06 PRN Reason: Pain, Mild 1-3,fever,headache Albuterol/Ipratropium (Albuterol/Iprat 2.5/0.5mg 3 Ml Ampul.Neb) 3 ml INHALE Q4H PRN PRN Reason: Shortness of Breath/Wheezing Calcium Carbonate (Calcium Carbonate 750 Mg Tab.Chew) 750 mg PO Q4H PRN PRN Reason: Heartburn Ceftriaxone Sodium (Ceftriaxone Sodium 1 Gm Vial) 1 gm IVPUSH Q24H [facility] Last Admin: 03/27/25 18:09 Dose: 1 gm Documented By: JEFFERY Diazepam (Diazepam 10 Mg/2 Ml Cartridge) 2 mg IVPUSH TID [facility] Last Admin: 03/28/25 08:36 Dose: 2 mg Documented By: LISA Docusate Sodium (Docusate Sodium 100 Mg Capsule) 100 mg PO BID PRN PRN Reason: Constipation Fondaparinux (Fondaparinux Sodium 2.5 Mg/0.5 Ml Syringe) 2.5 mg SUBCUT Q24H [facility] Last Admin: 03/27/25 18:09 Dose: 2.5 mg Documented By: JEFFERY Loperamide HCl (Loperamide Hcl 2 Mg Capsule) 2 mg PO Q6H PRN PRN Reason: Diarrhea Magnesium Hydroxide (Milk Of Magnesia 30 Ml Oral.Susp) 30 ml PO DAILY PRN PRN Reason: Constipation Melatonin (Melatonin 3 Mg Tablet) 3 mg PO BEDTIME PRN PRN Reason: Sleep Mirtazapine (Mirtazapine 15 Mg Tablet) 15 mg PO BEDTIME [facility] Last Admin: 03/27/25 21:54 Dose: 15 mg Documented By: JUSTINA Olanzapine (Olanzapine 10 Mg Vial) 2.5 mg IM BID [facility] Last Admin: 03/28/25 08:36 Dose: 2.5 mg Documented By: LISA Omeprazole (Omeprazole 20 Mg Capsule.Dr) 20 mg PO DAILY@0630 [facility] Last Admin: 03/28/25 05:35 Dose: Not Given Documented By: JUSTINA Non-Admin Reason: Patient Refused Ondansetron HCl (Ondansetron Hcl 4 Mg/2 Ml Vial) 4 mg IVPUSH Q8H PRN PRN Reason: Nausea and Vomiting Polyethylene Glycol (Polyethylene Glycol 3350 17 Gm Powd.Pack) 17 gm PO DAILY PRN PRN Reason: Constipation Potassium Chloride (Potassium Chloride Packet 20 Meq Packet) 20 meq PO BID [facility] Last Admin: 03/28/25 08:35 Dose: 20 meq Documented By: LISA Senna (Sennosides 8.6 Mg Tablet) 17.2 mg PO BEDTIME [facility] Last Admin: 03/27/25 21:54 Dose: 17.2 mg Documented By: JUSTINA Sodium Chloride (0.9 % Sodium Chloride Flush 3 Ml Syringe) 3 ml IVFLUSH QSHIFT [facility] Last Admin: 03/28/25 08:42 Dose: Not Given Documented By: LISA Non-Admin Reason: IV Running Thiamine HCl (Thiamine Hcl 100 Mg Tablet) 100 mg PO BID [facility] Last Admin: 03/28/25 08:36 Dose: 100 mg Documented By: LISA Labs 03/28/25 09:17 03/28/25 09:17 Labs: Laboratory Results - last 24 hr 03/27/25 03/28/25 09:19 09:17 MCV 88.4 MCH 30.7 MCHC 34.7 RDW 13.9 Plt Count 228 MPV 8.4 L Absolute Nucleated RBC 0.000 Nucleated RBC % (auto) 0.0 Anion Gap 18 Estim Creat Clear Calc 103.4 Estimated GFR > 60 Random Glucose 79 Calcium 9.1 Microbiology Microbiology Results: Microbiology 03/21/25 18:11 Blood Culture - Final Blood - Venous No growth after 5 days. 03/21/25 18:07 Blood Culture - Final Blood - Venous No growth after 5 days. Assessment and Plan (1) Bipolar 1 disorder: Status: Acute (2) Anxiety: Status: Acute (3) Bipolar 1 disorder, depressed, severe: Status: Acute Plan The patient is a 69-year-old female, currently nonverbal and unable to provide a history. She was diagnosed with a urinary tract infection in the ED, and admission has been requested. Chart review reveals a past medical history significant for recurrent UTIs, bipolar I disorder with depression, osteoarthritis, status post cardiac catheterization, anxiety, GERD, insomnia, osteopenia, and a prior DVT of the left tibial vein (no longer on anticoagulation). At [facility], she has been noncompliant with oral medications and has had poor oral nutritional intake for over one week. Urinary Tract Infection * Urine culture grew?Aerococcus urinae; sensitivities are not routinely performed. * Continue ceftriaxone for now, stop Ceftriaxone after today for 7 days of AB * Consider transition to oral antibiotics if the patient is clinically stable and able to tolerate oral intake. Catatonia. The patient presented with decompensated bipolar disorder, altered mental status, and catatonia, refusing medications, food, and interventions. She has shown improvement since started benzodiazepine (Valium) IV administration. If able to tolerate oral intake, we will transition to Ativan, which is preferred as first-line therapy for catatonia. Current treatment with Valium will be continued per Psychiatry recommendations, along with other recommendation per Psych (see Psych note). Given her history of positive response, ECT will ultimately be needed. Once medically stabilized, she will require psychiatric admission for further management--discussed with Psych team mild malnutrition, nutritional consult continue ivf for now Starting TPN today HypOkalemia, corrected History of DVT left lower extremity Patient is not on anticoagulation No evidence of DVT at this time Patient can not take Lovenox or heparin due to allergy/rash SCDs ordered, and added Arixtra GERD PPI DVT prophylaxis: SCD, Arixtra Full Code status Quality Stroke Does the patient have a stroke diagnosis?: No Reason for No Anti-thrombotic by Day Two: Drug declined by patient VTE Prior VTE?: No VTE Risk Level:: Medical - low VTE Device Contraindication: N/A - Device Ordered VTE Drug Contraindication: N/A - Med Ordered
[2025-03-28 10:17] LABS: Anion Gap 15 (12-20); Blood Urea Nitrogen 9 mg/dL (9-16); Calcium 8.5 mg/dL (8.4-10.2); Carbon Dioxide 23 mmol/L (22-29); Chloride 109 mmol/L (96-108); Creatinine Clr Calc Pharmacy 95.8; Estimated Glomerular Filt Rate > 60; Potassium 3.7 mmol/L (3.3-5.1); Sodium 143 mmol/L (135-145)
[2025-03-28 12:00] VITALS: BP 170/71; PULSE 87; RESP 18; TEMP 36.7; O2SAT 95
[2025-03-28] MEDS: Dextrose 5 % and Lactated Ring 1,000 ML 100 ML IVCONT ×2 (13:37→23:06)
--- NOTE | 2025-03-28 15:11 | PM.PSYCN ---
History of Present Illness Date of Service: 03/28/2025 Chief Complaint: UTI no to PO ABX Reason for Consult: catatonia HPI Narrative: catatonia see prior consult note for HPI. started on IV valium, per hospitalist note of today pt improved slightly. on exam today was engaging in repetitive chewing movements and staring blankly ahead. did not respond to verbal prompts. per sitter, was agitated trying to get out of bed until being played music. per contact with attending, no concerning behaviors or request for modification of mgmt. Past Psychiatric History: Inpt: [facility] [place]/09/[place] (catatonia), 11/03/2023; 12/24/23; 06/10/24. 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 -Per sister, pt has had depression since her early 20s and has suffered from unspecified chronic pain, surgeries. -Hx of multiple psych admissions to [facility] Past medication trials: seroquel, paliperidone, vraylar. [facility] Medical History (Updated 03/26/25 @ 14:40 by Francisca Bajwa NP) Delirium due to another medical condition History of skin cancer Hx of bladder problems VITO (generalized anxiety disorder) Murmur, cardiac Hx of thyroid nodule Osteopenia Hx of skin cancer, basal cell Seasonal allergies Insomnia Constipation GERD (gastroesophageal reflux disease) Anxiety History of electroconvulsive therapy Bipolar 1 disorder Surgical History Hx of colonoscopy H/O elbow surgery History of back surgery Family History: -Depression. In 1998 her great grandfather hung himself. Social History: -Pt has never been , no children. Dog recently . -Pt's mother (age 88), sister, and brother are involved with pt's care. -She graduated h.s. And has bachelors in psychology. She worked at [facility]. Trauma History: deferred Diagnostics Vital Signs (24Hr): Vital Signs - 24 hr 03/27/25 15:53 03/27/25 18:19 03/27/25 19:42 Temperature 98.1 F 97.8 F Pulse Rate 70 89 67 Respiratory Rate 12 18 18 Blood Pressure 95/53 L 140/76 H 136/88 Pulse Oximetry 97 92 Oxygen Delivery Method Room Air Room Air 03/27/25 23:38 03/28/25 07:05 03/28/25 12:00 Temperature 98.5 F 98.2 F 98.1 F Pulse Rate 76 81 87 Respiratory Rate 16 18 18 Blood Pressure 131/63 108/51 L 170/71 H Pulse Oximetry 97 94 95 Oxygen Delivery Method Room Air Room Air Room Air BMI result Body Mass Index 25.7 Labs 03/28/25 09:17 03/28/25 09:17 Labs: Laboratory Results - last 48 hr 03/26/25 03/27/25 03/28/25 16:26 09:19 09:17 WBC 14.6 H 11.7 H 9.9 RBC 4.63 D 4.29 3.78 L Hgb 14.0 D 13.0 11.6 L Hct 41.0 D 37.1 33.4 L MCV 88.6 86.5 88.4 MCH 30.2 30.3 30.7 MCHC 34.1 35.0 34.7 RDW 13.8 13.7 13.9 Plt Count 268 255 228 MPV 8.5 L 8.4 L 8.4 L Immature Gran % (Auto) 0.8 H Neut % (Auto) 77.9 H Lymph % (Auto) 11.4 L Meagher % (Auto) 9.4 Eos % (Auto) 0.1 Baso % (Auto) 0.4 Lymph # (Auto) 1.7 Meagher # (Auto) 1.4 H Eos # (Auto) 0.0 Baso # (Auto) 0.1 Abs Immat Gran (auto) 0.11 H Absolute Neuts (auto) 11.4 H Absolute Nucleated RBC 0.000 0.000 0.000 Nucleated RBC % (auto) 0.0 0.0 0.0 Sodium 137 140 143 Potassium 4.3 3.8 3.7 Chloride 103 104 109 H Carbon Dioxide 19 L 22 23 Anion Gap 19 18 15 BUN 12 8 L 9 Creatinine 0.57 0.50 0.54 Estim Creat Clear Calc 90.7 103.4 95.8 Estimated GFR > 60 > 60 > 60 Random Glucose 89 79 82 Calcium 9.4 9.1 8.5 D Total Bilirubin 0.4 AST 36 H ALT 24 Alkaline Phosphatase 119 H Total Creatine Kinase 325 H Total Protein 6.8 Albumin 3.7 Mental Status Exam Mental Status Exam Narrative: Appearance: wearing hospital gown, poor hygiene, disheveled, in NAD Behavior: staring straight ahead, non-verbal, constant chewing movements Psychomotor: motor retardation Speech: none Affect: constricted, expressionless SI: unable to assess HI: unable to assess VH/AH: unable to assess Delusions: unable to assess Insight/judgment: impaired x 2. Medications Medications Current Medications Acetaminophen (Acetaminophen 325 Mg Tablet) 650 mg PO Q6H PRN On Hold: 03/26/25 15:06 PRN Reason: Pain, Mild 1-3,fever,headache Albuterol/Ipratropium (Albuterol/Iprat 2.5/0.5mg 3 Ml Ampul.Neb) 3 ml INHALE Q4H PRN PRN Reason: Shortness of Breath/Wheezing Calcium Carbonate (Calcium Carbonate 750 Mg Tab.Chew) 750 mg PO Q4H PRN PRN Reason: Heartburn Ceftriaxone Sodium (Ceftriaxone Sodium 1 Gm Vial) 1 gm IVPUSH Q24H [facility] Last Admin: 03/27/25 18:09 Dose: 1 gm Diazepam (Diazepam 10 Mg/2 Ml Cartridge) 2 mg IVPUSH TID [facility] Last Admin: 03/28/25 14:58 Dose: 2 mg Docusate Sodium (Docusate Sodium 100 Mg Capsule) 100 mg PO BID PRN PRN Reason: Constipation Fondaparinux (Fondaparinux Sodium 2.5 Mg/0.5 Ml Syringe) 2.5 mg SUBCUT Q24H [facility] Last Admin: 03/27/25 18:09 Dose: 2.5 mg Dextrose/Lactated Ringer's (D5lr) 1,000 mls @ 100 mls/hr IVCONT .Q10H [facility] Last Admin: 03/28/25 13:37 Dose: 100 mls/hr Loperamide HCl (Loperamide Hcl 2 Mg Capsule) 2 mg PO Q6H PRN PRN Reason: Diarrhea Magnesium Hydroxide (Milk Of Magnesia 30 Ml Oral.Susp) 30 ml PO DAILY PRN PRN Reason: Constipation Melatonin (Melatonin 3 Mg Tablet) 3 mg PO BEDTIME PRN PRN Reason: Sleep Mirtazapine (Mirtazapine 15 Mg Tablet) 15 mg PO BEDTIME [facility] Last Admin: 03/27/25 21:54 Dose: 15 mg Olanzapine (Olanzapine 10 Mg Vial) 2.5 mg IM BID [facility] Last Admin: 03/28/25 08:36 Dose: 2.5 mg Omeprazole (Omeprazole 20 Mg Capsule.Dr) 20 mg PO DAILY@0630 [facility] Last Admin: 03/28/25 05:35 Dose: Not Given Ondansetron HCl (Ondansetron Hcl 4 Mg/2 Ml Vial) 4 mg IVPUSH Q8H PRN PRN Reason: Nausea and Vomiting Polyethylene Glycol (Polyethylene Glycol 3350 17 Gm Powd.Pack) 17 gm PO DAILY PRN PRN Reason: Constipation Potassium Chloride (Potassium Chloride Packet 20 Meq Packet) 20 meq PO BID [facility] Last Admin: 03/28/25 08:35 Dose: 20 meq Senna (Sennosides 8.6 Mg Tablet) 17.2 mg PO BEDTIME [facility] Last Admin: 03/27/25 21:54 Dose: 17.2 mg Sodium Chloride (0.9 % Sodium Chloride Flush 3 Ml Syringe) 3 ml IVFLUSH QSHIFT [facility] Last Admin: 03/28/25 14:59 Dose: Not Given Thiamine HCl (Thiamine Hcl 100 Mg Tablet) 100 mg PO BID [facility] Last Admin: 03/28/25 08:36 Dose: 100 mg Allergies Allergies Allergy/AdvReac Type Severity Reaction Status Date / Time bee pollen Allergy Severe Anaphylaxis Verified 03/21/25 14:48 levofloxacin (From Levaquin) Allergy Severe Itching Verified 03/21/25 14:48 enoxaparin (From Lovenox) Allergy Intermediate Rash Verified 03/21/25 14:48 Seasonal Allergies Allergy Mild Runny Nose Verified 03/21/25 14:48 venlafaxine (From Effexor) Allergy Mild Constipatio Verified 03/21/25 14:48 n Penicillins Allergy Unknown Unknown Verified 03/21/25 14:48 Assessment & Plan Assessment & Plan (1) Catatonia: Status: Acute Code(s): F06.1 - Catatonic disorder due to known physiological condition Plan appearing more catatonic than prior. would increase IV valium to 5 TID. Total time managing care of this patient today __25__ minutes.
[2025-03-28 16:00] VITALS: BP 139/63; PULSE 82; RESP 18; TEMP 36.2; O2SAT 95
[2025-03-28 19:57] VITALS: BP 127/76; RESP 18; TEMP 36.3
[2025-03-28] MEDS: 0.9 % Sodium Chloride Flush 3 ML SYRINGE IVFLUSH (23:07)
[2025-03-28 23:12] VITALS: BP 158/80; PULSE 80; RESP 16; TEMP 36.3; O2SAT 93
[2025-03-29] VITALS (7 sets, daily range): BP systolic 105–146; BP diastolic 62–87; PULSE 80–101; RESP 16–18; TEMP 36.5–38.2; O2SAT 90–96
[2025-03-29] MEDS: OLANZapine 10 MG VIAL 2.5 MG IM ×2 (08:18→20:56)
[2025-03-29] MEDS: diazePAM 10 MG/2 ML CARTRIDGE 5 MG IVPUSH (08:18)
[2025-03-29] MEDS: Dextrose 5 % and Lactated Ring 1,000 ML 100 ML IVCONT ×2 (08:40→19:22)
--- NOTE | 2025-03-29 11:07 | MHC.CLN ---
CONSULT MD REQUESTING PPN PO INTAKE 0% X4 DAYS PT WITH CATATONIA REVIEWED LABS-UNREMARKABLE DISCUSSED WITH PHARMACY RECOMMEND PPN AT 50ML/HR TO PROVIDE 612KCALS, 120G DEXTROSE, 51G PROTEIN CHECK TRIGS FOR LIPIDS TOMORROW REPLETE LYTES NEEDED FULL ASSESSMENT TO FOLLOW
--- NOTE | 2025-03-29 12:13 | P.CNPS_ITS ---
History of Present Illness Date of Service: 03/29/25 Chief Complaint: UTI no to PO ABX Reason for Consult: catatonia HPI Narrative: appears sedated this morning, eyes closed. that said, rousable and answers questions with LEE WNL. Past Psychiatric History: [place] [facility] [place] 11/03/2023; 12/24/23; 06/10/24. 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 -Per sister, pt has had depression since her early 20s and has suffered from unspecified chronic pain, surgeries. -Hx of multiple psych admissions to [facility] Past medication trials: seroquel, paliperidone, vraylar. [facility] Medical History (Updated 03/26/25 @ 14:40 by Francisca Bajwa NP) Delirium due to another medical condition History of skin cancer Hx of bladder problems VITO (generalized anxiety disorder) Murmur, cardiac Hx of thyroid nodule Osteopenia Hx of skin cancer, basal cell Seasonal allergies Insomnia Constipation GERD (gastroesophageal reflux disease) Anxiety History of electroconvulsive therapy Bipolar 1 disorder Surgical History Hx of colonoscopy H/O elbow surgery History of back surgery Family History: -Depression. In 1998 her great grandfather hung himself. Social History: -Pt has never been , no children. Dog recently . -Pt's mother (age 88), sister, and brother are involved with pt's care. -She graduated h.s. And has bachelors in psychology. She worked at [facility]. Trauma History: deferred Diagnostics Vital Signs (24Hr): Vital Signs - 24 hr 03/28/25 16:00 03/28/25 19:57 03/28/25 23:12 Temperature 97.1 F 97.3 F 97.4 F Pulse Rate 82 80 Respiratory Rate 18 18 16 Blood Pressure 139/63 127/76 158/80 H Pulse Oximetry 95 93 Oxygen Delivery Method Room Air Room Air 03/29/25 03:03 03/29/25 08:00 Temperature 97.7 F 98.1 F Pulse Rate 91 95 Respiratory Rate 16 16 Blood Pressure 146/87 H 143/78 H Pulse Oximetry 93 90 L Oxygen Delivery Method Room Air Room Air BMI result Body Mass Index 25.7 Labs 03/28/25 09:17 03/28/25 09:17 Labs: Laboratory Results - last 48 hr 03/28/25 09:17 WBC 9.9 RBC 3.78 L Hgb 11.6 L Hct 33.4 L MCV 88.4 MCH 30.7 MCHC 34.7 RDW 13.9 Plt Count 228 MPV 8.4 L Absolute Nucleated RBC 0.000 Nucleated RBC % (auto) 0.0 Sodium 143 Potassium 3.7 Chloride 109 H Carbon Dioxide 23 Anion Gap 15 BUN 9 Creatinine 0.54 Estim Creat Clear Calc 95.8 Estimated GFR > 60 Random Glucose 82 Calcium 8.5 D Mental Status Exam Mental Status Exam Narrative: Appearance: wearing hospital gown, poor hygiene, disheveled, in NAD Behavior: eyes closed, rousable, answers questions, no jaw movements Psychomotor: no waxy flexibility Speech: soft, nml LEE, terse Affect: constricted, expressionless SI: none voiced HI: none voiced VH/AH: none voiced Delusions: none voiced Insight/judgment: impaired x 2. Medications Medications Current Medications Acetaminophen (Acetaminophen 325 Mg Tablet) 650 mg PO Q6H PRN On Hold: 03/26/25 15:06 PRN Reason: Pain, Mild 1-3,fever,headache Calcium Carbonate (Calcium Carbonate 750 Mg Tab.Chew) 750 mg PO Q4H PRN PRN Reason: Heartburn Ceftriaxone Sodium (Ceftriaxone Sodium 1 Gm Vial) 1 gm IVPUSH Q24H [facility] Last Admin: 03/28/25 17:25 Dose: 1 gm Diazepam (Diazepam 10 Mg/2 Ml Cartridge) 5 mg IVPUSH TID [facility] Last Admin: 03/29/25 08:18 Dose: 5 mg Docusate Sodium (Docusate Sodium 100 Mg Capsule) 100 mg PO BID PRN PRN Reason: Constipation Fondaparinux (Fondaparinux Sodium 2.5 Mg/0.5 Ml Syringe) 2.5 mg SUBCUT Q24H [facility] Last Admin: 03/28/25 17:25 Dose: 2.5 mg Dextrose/Lactated Ringer's (D5lr) 1,000 mls @ 100 mls/hr IVCONT .Q10H [facility] Last Admin: 03/29/25 08:40 Dose: 100 mls/hr Nutrition (Parenteral) (Parenteral Nutrition) 1,200 mls @ 50 mls/hr IV .Q24H [facility]; Protocol Stop: 03/30/25 20:59 Loperamide HCl (Loperamide Hcl 2 Mg Capsule) 2 mg PO Q6H PRN PRN Reason: Diarrhea Magnesium Hydroxide (Milk Of Magnesia 30 Ml Oral.Susp) 30 ml PO DAILY PRN PRN Reason: Constipation Melatonin (Melatonin 3 Mg Tablet) 3 mg PO BEDTIME PRN PRN Reason: Sleep Mirtazapine (Mirtazapine 15 Mg Tablet) 15 mg PO BEDTIME [facility] Last Admin: 03/28/25 21:53 Dose: Not Given Olanzapine (Olanzapine 10 Mg Vial) 2.5 mg IM BID [facility] Last Admin: 03/29/25 08:18 Dose: 2.5 mg Omeprazole (Omeprazole 20 Mg Capsule.Dr) 20 mg PO DAILY@0630 [facility] Last Admin: 03/29/25 05:56 Dose: Not Given Ondansetron HCl (Ondansetron Hcl 4 Mg/2 Ml Vial) 4 mg IVPUSH Q8H PRN PRN Reason: Nausea and Vomiting Pharmacy Consult (Consult Rx Parenteral Nutrition Ordering) 1 each MISCELLANE DAILY PRN PRN Reason: Consult order Polyethylene Glycol (Polyethylene Glycol 3350 17 Gm Powd.Pack) 17 gm PO DAILY PRN PRN Reason: Constipation Potassium Chloride (Potassium Chloride Packet 20 Meq Packet) 20 meq PO BID [facility] Last Admin: 03/29/25 08:13 Dose: Not Given Senna (Sennosides 8.6 Mg Tablet) 17.2 mg PO BEDTIME [facility] Last Admin: 03/28/25 21:53 Dose: Not Given Sodium Chloride (0.9 % Sodium Chloride Flush 3 Ml Syringe) 3 ml IVFLUSH QSHIFT [facility] Last Admin: 03/29/25 08:13 Dose: Not Given Thiamine HCl (Thiamine Hcl 100 Mg Tablet) 100 mg PO BID [facility] Last Admin: 03/29/25 08:13 Dose: Not Given Allergies Allergies Allergy/AdvReac Type Severity Reaction Status Date / Time bee pollen Allergy Severe Anaphylaxis Verified 03/21/25 14:48 levofloxacin (From Levaquin) Allergy Severe Itching Verified 03/21/25 14:48 enoxaparin (From Lovenox) Allergy Intermediate Rash Verified 03/21/25 14:48 Seasonal Allergies Allergy Mild Runny Nose Verified 03/21/25 14:48 venlafaxine (From Effexor) Allergy Mild Constipatio Verified 03/21/25 14:48 n Penicillins Allergy Unknown Unknown Verified 03/21/25 14:48 Assessment & Plan Assessment & Plan (1) Catatonia: Status: Acute Code(s): F06.1 - Catatonic disorder due to known physiological condition [facility] all as per medical aside from the following: decrease valium dosing from 5 mg IV TID to 4 mg IV TID due to sedation. Total time managing care of this patient today _15___ minutes.
[2025-03-29 13:31] LABS: Hematocrit 35.1 % (37.0-47.0); Hemoglobin 12.2 g/dl (12.0-16.0); Mean Corpuscular HGB Conc 34.8 g/dl (31.0-35.0); Mean Corpuscular Hemoglobin 30.7 pg (27.0-33.0); Mean Corpuscular Volume 88.2 fL (80.0-98.0); NRBC Abs Auto 0.000 X10*3/uL (0.0-0.012); NRBC Pct Auto 0.0 /100WBC (0.0-0.2); Platelet Count 224 X10*3/uL (160-400); Red Blood Count 3.98 X10*6/uL (4.20-5.50); White Blood Count 11.0 X10*3/uL (4.8-10.8)
[2025-03-29 13:42] LABS: Anion Gap 12 (12-20); Blood Urea Nitrogen 4 mg/dL (9-16); Calcium 8.5 mg/dL (8.4-10.2); Carbon Dioxide 26 mmol/L (22-29); Chloride 103 mmol/L (96-108); Creatinine Clr Calc Pharmacy 112.5; Estimated Glomerular Filt Rate > 60; Potassium 3.4 mmol/L (3.3-5.1); Sodium 138 mmol/L (135-145)
[2025-03-29] MEDS: diazePAM 10 MG/2 ML CARTRIDGE 4 MG IVPUSH ×2 (14:48→20:55)
[2025-03-29] MEDS: Parenteral Nutrition 1,200 ML 50 ML IV (20:56)
[2025-03-30] VITALS (8 sets, daily range): BP systolic 82–140; BP diastolic 50–72; PULSE 71–88; RESP 16–18; TEMP 36.2–37; O2SAT 92–100; BMI 25.7
--- NOTE | 2025-03-30 | ECG_ITS ---
Test Reason : prior ect Blood Pressure : */* mmHG Vent. Rate : 72 BPM Atrial Rate : 72 BPM P-R Int : 122 ms QRS Dur : 84 ms QT Int : 414 ms P-R-T Axes : 16 21 12 degrees QTcB Int : 453 ms Normal sinus rhythm cannot exclude old Inferior infarct , age undetermined Abnormal ECG When compared with ECG of 21-Mar-2025 15:15, No significant change was found Referred By: [facility] Electronically Signed By: MARI ROTHMAN
[2025-03-30 06:40] LABS: Albumin Level 2.9 g/dL (3.5-5.0); Anion Gap 11 (12-20); Blood Urea Nitrogen 8 mg/dL (9-16); Calcium 9.0 mg/dL (8.4-10.2); Carbon Dioxide 28 mmol/L (22-29); Chloride 104 mmol/L (96-108); Cholesterol 132 mg/dL (<200); Creatinine Clr Calc Pharmacy 99.5; Estimated Glomerular Filt Rate > 60; HDL Cholesterol 35 mg/dL (>40); Magnesium 1.6 mg/dL (1.6-2.6); Potassium 3.3 mmol/L (3.3-5.1); Sodium 140 mmol/L (135-145); Triglycerides 72 mg/dL (<150)
--- NOTE | 2025-03-30 09:14 | HO.PM.IMPN ---
Subjective Subjective Date of Service: 03/30/25 Interval History: She is conversing this morning, but says no to pretty much everthing when ask if want breakfast, response I don't want anything, and leave me alone BP on low side but assymptomatic, getting PPN Physical Exam Exam: Exam: not talking, no agitation this morning, no focal neuro deficit, rest of exam unremarkable. Vital Signs: Vital Signs: Last Vital Signs Temp 97.2 F 03/30/25 07:50 Pulse 88 03/30/25 07:50 Resp 18 03/30/25 07:50 BP 94/53 L 03/30/25 07:50 Pulse Ox 92 03/30/25 07:50 O2 Del Method Nasal Cannula 03/30/25 07:50 O2 Flow Rate 2.5 03/30/25 07:50 BMI result Body Mass Index 25.7 Const: Other: Alert, answering question, no distress CV RRR lung CTA Abd, ext No edema Neuro NF Psych: catonia Objective Data Active Medications Acetaminophen (Acetaminophen 325 Mg Tablet) 650 mg PO Q6H PRN On Hold: 03/26/25 15:06 PRN Reason: Pain, Mild 1-3,fever,headache Calcium Carbonate (Calcium Carbonate 750 Mg Tab.Chew) 750 mg PO Q4H PRN PRN Reason: Heartburn Ceftriaxone Sodium (Ceftriaxone Sodium 1 Gm Vial) 1 gm IVPUSH Q24H [facility] Last Admin: 03/29/25 17:23 Dose: 1 gm Documented By: LISA Diazepam (Diazepam 10 Mg/2 Ml Cartridge) 4 mg IVPUSH TID [facility] Last Admin: 03/29/25 20:55 Dose: 4 mg Documented By: KAYLEN Docusate Sodium (Docusate Sodium 100 Mg Capsule) 100 mg PO BID PRN PRN Reason: Constipation Fondaparinux (Fondaparinux Sodium 2.5 Mg/0.5 Ml Syringe) 2.5 mg SUBCUT Q24H [facility] Last Admin: 03/29/25 17:23 Dose: 2.5 mg Documented By: LISA Nutrition (Parenteral) (Parenteral Nutrition) 1,200 mls @ 50 mls/hr IV .Q24H [facility]; Protocol Stop: 03/30/25 20:59 Last Admin: 03/29/25 20:56 Dose: 50 mls/hr Documented By: KAYLEN Loperamide HCl (Loperamide Hcl 2 Mg Capsule) 2 mg PO Q6H PRN PRN Reason: Diarrhea Magnesium Hydroxide (Milk Of Magnesia 30 Ml Oral.Susp) 30 ml PO DAILY PRN PRN Reason: Constipation Melatonin (Melatonin 3 Mg Tablet) 3 mg PO BEDTIME PRN PRN Reason: Sleep Meropenem (Meropenem 1 Gm Vial) 1 gm IVPUSH Q8H [facility] Last Admin: 03/30/25 04:29 Dose: 1 gm Documented By: KAYLEN Mirtazapine (Mirtazapine 15 Mg Tablet) 15 mg PO BEDTIME [facility] Last Admin: 03/29/25 20:56 Dose: Not Given Documented By: KAYLEN Non-Admin Reason: Patient Refused Olanzapine (Olanzapine 10 Mg Vial) 2.5 mg IM BID [facility] Last Admin: 03/29/25 20:56 Dose: 2.5 mg Documented By: KAYLEN Omeprazole (Omeprazole 20 Mg Capsule.Dr) 20 mg PO DAILY@0630 [facility] Last Admin: 03/30/25 06:02 Dose: Not Given Documented By: KAYLEN Non-Admin Reason: pt drowsy, sleeping Ondansetron HCl (Ondansetron Hcl 4 Mg/2 Ml Vial) 4 mg IVPUSH Q8H PRN PRN Reason: Nausea and Vomiting Pharmacy Consult (Consult Rx Parenteral Nutrition Ordering) 1 each MISCELLANE DAILY PRN PRN Reason: Consult order Polyethylene Glycol (Polyethylene Glycol 3350 17 Gm Powd.Pack) 17 gm PO DAILY PRN PRN Reason: Constipation Potassium Chloride (Potassium Chloride Packet 20 Meq Packet) 20 meq PO BID [facility] Last Admin: 03/29/25 20:57 Dose: Not Given Documented By: KAYLEN Non-Admin Reason: Patient Refused Senna (Sennosides 8.6 Mg Tablet) 17.2 mg PO BEDTIME [facility] Last Admin: 03/29/25 20:57 Dose: Not Given Documented By: KAYLEN Non-Admin Reason: Patient Refused Sodium Chloride (0.9 % Sodium Chloride Flush 3 Ml Syringe) 3 ml IVFLUSH QSHIFT [facility] Last Admin: 03/30/25 01:06 Dose: Not Given Documented By: KAYLEN Non-Admin Reason: IV Running Thiamine HCl (Thiamine Hcl 100 Mg Tablet) 100 mg PO BID [facility] Last Admin: 03/29/25 20:57 Dose: Not Given Documented By: KAYLEN Non-Admin Reason: Patient Refused Labs 03/29/25 13:17 03/30/25 06:07 Labs: Laboratory Results - last 24 hr 03/29/25 03/29/25 03/30/25 13:16 13:17 06:07 MCV 88.2 MCH 30.7 MCHC 34.8 RDW 13.8 Plt Count 224 MPV 8.5 L Absolute Nucleated RBC 0.000 Nucleated RBC % (auto) 0.0 Hold Purple Top SEE NOTE Anion Gap 12 11 L Estim Creat Clear Calc 112.5 99.5 Estimated GFR > 60 > 60 Random Glucose 156 H 140 H Lactic Acid 1.2 Calcium 8.5 9.0 Phosphorus 2.7 Magnesium 1.6 Albumin 2.9 L Triglycerides 72 Cholesterol 132 LDL Cholesterol, Calc 83 HDL Cholesterol 35 L Microbiology Microbiology Results: Microbiology 03/21/25 18:11 Blood Culture - Final Blood - Venous No growth after 5 days. 03/21/25 18:07 Blood Culture - Final Blood - Venous No growth after 5 days. Assessment and Plan (1) Bipolar 1 disorder: Status: Acute (2) Anxiety: Status: Acute (3) Bipolar 1 disorder, depressed, severe: Status: Acute Plan The patient is a 69-year-old female, currently nonverbal and unable to provide a history. She was diagnosed with a urinary tract infection in the ED, and admission has been requested. Chart review reveals a past medical history significant for recurrent UTIs, bipolar I disorder with depression, osteoarthritis, status post cardiac catheterization, anxiety, GERD, insomnia, osteopenia, and a prior DVT of the left tibial vein (no longer on anticoagulation). At [facility], she has been noncompliant with oral medications and has had poor oral nutritional intake for over one week. Urinary Tract Infection Urine culture grew?Aerococcus urinae; sensitivities are not routinely performed. Continue ceftriaxone for now, stop Ceftriaxone after today for 7 days of AB Consider transition to oral antibiotics if the patient is clinically stable and able to tolerate oral intake. Catatonia. The patient presented with decompensated bipolar disorder, altered mental status, and catatonia, refusing medications, food, and interventions. She has shown improvement since started benzodiazepine (Valium) IV administration. If able to tolerate oral intake, we will transition to Ativan, which is preferred as first-line therapy for catatonia. Current treatment with Valium will be continued per Psychiatry recommendations, along with other recommendation per Psych (see Psych note). Given her history of positive response, ECT will ultimately be needed. Once medically stabilized, she will require psychiatric admission for further management--discussed with Psych team.. Minimize sedation if too somnolent. She is medically optimized for ECT, no further tesing is indicated at this time, and will get a routine ECG Hypoxia with O2 sat of 90 on room air, likely from atelectasis and sedation Xray 03/29.. atelectatis,. Incentive spirometry use when awake enough Already on ceftriaxone mild malnutrition, nutritional consult continue ivf for now Started PPN 03/29 HypOkalemia, corrected History of DVT left lower extremity Patient is not on anticoagulation No evidence of DVT at this time Patient can not take Lovenox or heparin due to allergy/rash SCDs ordered, and added Arixtra GERD PPI DVT prophylaxis: SCD, Arixtra Full Code status Quality Stroke Does the patient have a stroke diagnosis?: No Reason for No Anti-thrombotic by Day Two: Drug declined by patient VTE Prior VTE?: No VTE Risk Level:: Medical - low VTE Device Contraindication: N/A - Device Ordered VTE Drug Contraindication: N/A - Med Ordered
[2025-03-30] MEDS: Lactated Ringers 1,000 ML 999 ML IV (09:23)
[2025-03-30] MEDS: 0.9 % Sodium Chloride Flush 3 ML SYRINGE IVFLUSH (09:27)
--- NOTE | 2025-03-30 09:30 | PC.NURSE ---
Addendum entered by La Nena Lizarraga RN 03/30/25 14:45: 1030- Bp 89/50 HR 76 after IVF bolus. Stat lactic drawn- 1.2, continuous IVF LR 150ml/hr ordered and started. Pt remains alert but nonverbal to questions at this time Original Note: BP 82/52 HR 85. O2 sat on 2L NC 92%. Pt with eyes open lying in bed. Pt able to tell me her name and but did not answer any other questions asked by this RN. Dr Hernandez notified. LR bolus infusing. Will continue to monitor
--- NOTE | 2025-03-30 10:27 | MHC.CLN ---
NUTRITION DIET=GROUND. DISCONTINUE ENSURE TID SINCE PATIENT NOT TAKING. PO INTAKE USUALLY VERY POOR X 6 DAYS. WILL TAKE PO AT TIMES. QUALIFIES MODERATELY MALNOURISHED IN THE CONTEXT OF CHRONIC ILLNESS. MILD DEPLETION OF BODY FAT AND MUSCLE MASS NOTED. HX POOR PO. NO SIGNIFICANT WEIGHT LOSS X ONE YEAR. STARTED PPN 03/29. RECOMMEND ADVANCE PPN TODAY TO MAX GOAL RATE: PPN AT 70 ML PER HOUR, ADD 65 G LIPIDS TO PROVIDE 71 G PROTEIN (1.2 G/KG CMW), 168 G DEXTROSE, 1507 TOTAL KCALS (26.1 KCALS/KG CMW). FOLLOW FOR PPN TOLERANCE AND PO INTAKE. SEE CLINICAL NUTRITION ASSESSMENT 03/30/25.
[2025-03-30] MEDS: Lactated Ringers 1,000 ML 150 ML IVCONT ×2 (10:50→17:00)
--- NOTE | 2025-03-30 14:00 | MHC.CM.PN ---
Psych eval determined patient meets IPLOC. Medication changes have been made. Patient is more alert today. DP INPLOC once medically cleared.
--- NOTE | 2025-03-30 15:22 | P.PNPSI_ITS ---
Subjective Subjective Date of Service: 03/30/25 Reason For Visit: Pulmonary periprocedural risk assessment Healthcare Proxy: Yes Interim History: Patient being followed on the medical floor case reviewed with Dr. Hernandez and with healthcare proxy patient's sister. Patient mostly mute echo going statements about a baby while she is holding a doll. Has required TPN generally not taking medication by mouth. Patient has a history of bipolar disorder with catatonia has responded well to ECT in the past and would benefit from a course of ECT has not responded to benzodiazepines Diagnostics Vital Signs (24Hr): Vital Signs - 24 hr 03/29/25 15:32 03/29/25 19:48 03/29/25 23:52 Temperature 100.7 F H 99.9 F 99.9 F Pulse Rate 80 101 H 84 Respiratory Rate 16 18 18 Blood Pressure 105/62 119/71 117/64 Pulse Oximetry 94 94 96 Oxygen Delivery Method Nasal Cannula Nasal Cannula Nasal Cannula Oxygen Flow Rate 2 0.5 0.5 03/30/25 04:00 03/30/25 07:50 03/30/25 09:09 Temperature 98.6 F 97.2 F Pulse Rate 75 88 85 Respiratory Rate 18 18 Blood Pressure 100/62 94/53 L 82/52 L Pulse Oximetry 96 92 92 Oxygen Delivery Method Nasal Cannula Nasal Cannula Nasal Cannula Oxygen Flow Rate 2 2.5 2 03/30/25 10:34 03/30/25 11:57 Temperature 97.3 F Pulse Rate 76 74 Respiratory Rate 16 Blood Pressure 89/50 L 100/60 Pulse Oximetry 98 99 Oxygen Delivery Method Nasal Cannula Nasal Cannula Oxygen Flow Rate 2 2 BMI result Body Mass Index 25.7 Labs 03/31/25 05:03 04/12/25 05:56 Labs: Laboratory Results - last 48 hr 03/29/25 03/29/25 03/30/25 13:16 13:17 06:07 WBC 11.0 H RBC 3.98 L Hgb 12.2 Hct 35.1 L MCV 88.2 MCH 30.7 MCHC 34.8 RDW 13.8 Plt Count 224 MPV 8.5 L Absolute Nucleated RBC 0.000 Nucleated RBC % (auto) 0.0 Hold Purple Top SEE NOTE Sodium 138 140 Potassium 3.4 3.3 Chloride 103 104 Carbon Dioxide 26 28 Anion Gap 12 11 L BUN 4 L 8 L Creatinine 0.46 L 0.52 Estim Creat Clear Calc 112.5 99.5 Estimated GFR > 60 > 60 Random Glucose 156 H 140 H Lactic Acid 1.2 Calcium 8.5 9.0 Phosphorus 2.7 Magnesium 1.6 Albumin 2.9 L Triglycerides 72 Cholesterol 132 LDL Cholesterol, Calc 83 HDL Cholesterol 35 L 03/30/25 10:57 WBC RBC Hgb Hct MCV MCH MCHC RDW Plt Count MPV Absolute Nucleated RBC Nucleated RBC % (auto) Hold Purple Top Sodium Potassium Chloride Carbon Dioxide Anion Gap BUN Creatinine Estim Creat Clear Calc Estimated GFR Random Glucose Lactic Acid 1.2 Calcium Phosphorus Magnesium Albumin Triglycerides Cholesterol LDL Cholesterol, Calc HDL Cholesterol Medications Medications Current Medications Acetaminophen (Acetaminophen 325 Mg Tablet) 650 mg PO Q6H PRN On Hold: 03/26/25 15:06 PRN Reason: Pain, Mild 1-3,fever,headache Calcium Carbonate (Calcium Carbonate 750 Mg Tab.Chew) 750 mg PO Q4H PRN PRN Reason: Heartburn Ceftriaxone Sodium (Ceftriaxone Sodium 1 Gm Vial) 1 gm IVPUSH Q24H [facility] Last Admin: 03/29/25 17:23 Dose: 1 gm Diazepam (Diazepam 10 Mg/2 Ml Cartridge) 4 mg IVPUSH TID [facility] Last Admin: 03/30/25 10:34 Dose: Not Given Docusate Sodium (Docusate Sodium 100 Mg Capsule) 100 mg PO BID PRN PRN Reason: Constipation Fondaparinux (Fondaparinux Sodium 2.5 Mg/0.5 Ml Syringe) 2.5 mg SUBCUT Q24H [facility] Last Admin: 03/29/25 17:23 Dose: 2.5 mg Nutrition (Parenteral) (Parenteral Nutrition) 1,200 mls @ 50 mls/hr IV .Q24H [facility]; Protocol Stop: 03/30/25 20:59 Last Admin: 03/29/25 20:56 Dose: 50 mls/hr Lactated Ringer's (Lr) 1,000 mls @ 150 mls/hr IVCONT .Q6H40M [facility] Last Admin: 03/30/25 10:50 Dose: 150 mls/hr Nutrition (Parenteral) (Parenteral Nutrition) 1,680 mls @ 70 mls/hr IV .Q24H [facility]; Protocol Stop: 03/31/25 20:59 Loperamide HCl (Loperamide Hcl 2 Mg Capsule) 2 mg PO Q6H PRN PRN Reason: Diarrhea Magnesium Hydroxide (Milk Of Magnesia 30 Ml Oral.Susp) 30 ml PO DAILY PRN PRN Reason: Constipation Melatonin (Melatonin 3 Mg Tablet) 3 mg PO BEDTIME PRN PRN Reason: Sleep Meropenem (Meropenem 1 Gm Vial) 1 gm IVPUSH Q8H [facility] Last Admin: 03/30/25 12:44 Dose: 1 gm Mirtazapine (Mirtazapine 15 Mg Tablet) 15 mg PO BEDTIME [facility] Last Admin: 03/29/25 20:56 Dose: Not Given Olanzapine (Olanzapine 10 Mg Vial) 2.5 mg IM BID [facility] Last Admin: 03/30/25 09:27 Dose: Not Given Omeprazole (Omeprazole 20 Mg Capsule.Dr) 20 mg PO DAILY@0630 [facility] Last Admin: 03/30/25 06:02 Dose: Not Given Ondansetron HCl (Ondansetron Hcl 4 Mg/2 Ml Vial) 4 mg IVPUSH Q8H PRN PRN Reason: Nausea and Vomiting Pharmacy Consult (Consult Rx Parenteral Nutrition Ordering) 1 each MISCELLANE DAILY PRN PRN Reason: Consult order Polyethylene Glycol (Polyethylene Glycol 3350 17 Gm Powd.Pack) 17 gm PO DAILY PRN PRN Reason: Constipation Potassium Chloride (Potassium Chloride Packet 20 Meq Packet) 20 meq PO BID [facility] Last Admin: 03/30/25 10:30 Dose: Not Given Senna (Sennosides 8.6 Mg Tablet) 17.2 mg PO BEDTIME [facility] Last Admin: 03/29/25 20:57 Dose: Not Given Sodium Chloride (0.9 % Sodium Chloride Flush 3 Ml Syringe) 3 ml IVFLUSH QSHIFT [facility] Last Admin: 03/30/25 09:27 Dose: 3 ml Thiamine HCl (Thiamine Hcl 100 Mg Tablet) 100 mg PO BID [facility] Last Admin: 03/30/25 10:30 Dose: Not Given Allergies Allergies Allergy/AdvReac Type Severity Reaction Status Date / Time bee pollen Allergy Severe Anaphylaxis Verified 03/21/25 14:48 levofloxacin (From Levaquin) Allergy Severe Itching Verified 03/21/25 14:48 enoxaparin (From Lovenox) Allergy Intermediate Rash Verified 03/21/25 14:48 Seasonal Allergies Allergy Mild Runny Nose Verified 03/21/25 14:48 venlafaxine (From Effexor) Allergy Mild Constipatio Verified 03/21/25 14:48 n Penicillins Allergy Unknown Unknown Verified 03/21/25 14:48 Assessment & Plan Assessment & Plan (1) Anxiety: Status: Acute Code(s): F41.9 - Anxiety disorder, unspecified (2) Bipolar 1 disorder, depressed, severe: Status: Acute Code(s): F31.4 - Bipolar disorder, current episode depressed, severe, without psychotic features (3) Catatonia: Status: Acute Code(s): F06.1 - Catatonic disorder due to known physiological condition Plan The patient is a 69-year-old female, currently nonverbal and unable to provide a history. She was diagnosed with a urinary tract infection in the ED, and admission has been requested. Chart review reveals a past medical history significant for recurrent UTIs, bipolar I disorder with depression, osteoarthritis, status post cardiac catheterization, anxiety, GERD, insomnia, osteopenia, and a prior DVT of the left tibial vein (no longer on anticoagulation). At [facility], she has been noncompliant with oral medications and has had poor oral nutritional intake for over one week. Urinary Tract Infection * Urine culture grew?Aerococcus urinae; sensitivities are not routinely performed. * Continue ceftriaxone for now, stop Ceftriaxone after today for 7 days of AB * Consider transition to oral antibiotics if the patient is clinically stable and able to tolerate oral intake. Catatonia. The patient presented with decompensated bipolar disorder, altered mental status, and catatonia, refusing medications, food, and interventions. She has shown improvement since started benzodiazepine (Valium) IV administration. If able to tolerate oral intake, we will transition to Ativan, which is preferred as first-line therapy for catatonia. Current treatment with Valium will be continued per Psychiatry recommendations, along with other recommendation per Psych (see Psych note). Given her history of positive response, ECT will ultimately be needed. Once medically stabilized, she will require psychiatric admission for further management--discussed with Psych team.. Minimize sedation if too somnolent. She is medically optimized for ECT, no further tesing is indicated at this time, and will get a routine ECG Hypoxia with O2 sat of 90 on room air, likely from atelectasis and sedation Xray 03/29.. atelectatis,. Incentive spirometry use when awake enough Already on ceftriaxone mild malnutrition, nutritional consult continue ivf for now Started PPN 03/29 HypOkalemia, corrected History of DVT left lower extremity Patient is not on anticoagulation No evidence of DVT at this time Patient can not take Lovenox or heparin due to allergy/rash SCDs ordered, and added Arixtra GERD PPI DVT prophylaxis: SCD, Arixtra Full Code status 03/30/2025 Patient lethargic generally not ambulating catatonia present not responding to benzodiazepines history of good response to ECT case reviewed with healthcare proxy who agrees with treatment plan ECT. Without treatment patient at risk of pulmonary embolism aspiration has had severe weight loss. Guardian/Caregiver educated on: ECT and medical condition Reason for continued inpatient stay Substantial Risk for: inability to function, rapid decompensation and med/psych decompensation Time Spent With Patient Time: Total time managing care of this patient today ____ minutes.
--- NOTE | 2025-03-30 15:25 | MHC.SLORD ---
Speech Language Pathology Order Status: RN and ramon consulted. Pt in more catatonic state, not responding verbally, only making occasional eye contact. Pt does feed herself small amounts of PO but intake remains significantly reduced. Pt has PPN at this time. REGISTERED NURSE CARDIOVASCULAR ICU continues to follow as indicated.
[2025-03-30] MEDS: diazePAM 10 MG/2 ML CARTRIDGE 4 MG IVPUSH ×2 (15:38→20:22)
--- NOTE | 2025-03-30 17:12 | PC.NURSE ---
Pt will feed herself if tray placed in front of her. 25% of meals today. This RN attempted to give pt nourishments such as water, juice, apple sauce and ice cream and meds but pt closes her lips and pushes my hand away. Still not answering questions when asked
--- NOTE | 2025-03-30 18:25 | PC.NURSE ---
Attempted to give pt dinner but pt closed her lips and kept turning her head away. Did not have any dinner
[2025-03-30] MEDS: Potassium Chloride Packet 20 MEQ PACKET PO (20:28)
[2025-03-30] MEDS: Parenteral Nutrition 1,680 ML 70 ML IV (21:06)
[2025-03-31] VITALS (7 sets, daily range): BP systolic 124–156; BP diastolic 60–82; PULSE 72–90; RESP 16–18; TEMP 36.6–37.7; O2SAT 93–99
[2025-03-31] MEDS: guaiFENesin 200 MG/10 ML 10 ML LIQUID PO (05:53)
[2025-03-31 06:44] LABS: Albumin Level 2.9 g/dL (3.5-5.0); Anion Gap 10 (12-20); Blood Urea Nitrogen 9 mg/dL (9-16); Calcium 9.1 mg/dL (8.4-10.2); Carbon Dioxide 28 mmol/L (22-29); Chloride 105 mmol/L (96-108); Creatinine Clr Calc Pharmacy 114.9; Estimated Glomerular Filt Rate > 60; Magnesium 2.0 mg/dL (1.6-2.6); Potassium 4.3 mmol/L (3.3-5.1); Sodium 139 mmol/L (135-145)
[2025-03-31 09:05] LABS: MANUAL DIFF FLAG NO
[2025-03-31 09:10] LABS: Hematocrit 32.2 % (37.0-47.0); Hemoglobin 10.9 g/dl (12.0-16.0); Imm Gran Abs Auto 0.04 X10*3/uL (0.00-0.03); Imm Gran Pct Auto 0.4 % (0.0-0.4); Lymphocytes Absolute Auto 1.3 X10*3/uL (1.2-4.9); Mean Corpuscular HGB Conc 33.9 g/dl (31.0-35.0); Mean Corpuscular Hemoglobin 30.4 pg (27.0-33.0); Mean Corpuscular Volume 89.9 fL (80.0-98.0); NRBC Abs Auto 0.000 X10*3/uL (0.0-0.012); NRBC Pct Auto 0.0 /100WBC (0.0-0.2); Platelet Count 209 X10*3/uL (160-400); Red Blood Count 3.58 X10*6/uL (4.20-5.50); White Blood Count 11.3 X10*3/uL (4.8-10.8)
[2025-03-31] MEDS: diazePAM 10 MG/2 ML CARTRIDGE 4 MG IVPUSH ×3 (09:23→20:48)
--- NOTE | 2025-03-31 11:03 | MHC.CLN ---
F/U QUALIFIES MODERATELY MALNOURISHED IN THE CONTEXT OF CHRONIC ILLNESS SEE FULL CLINICAL NUTRITION ASSESSMENT DATED 03/30/25 PO INTAKE 25% X2 MEALS HOWEVER PT REFUSED DINNER LAST EVENING PER NSG REVIEWED LABS DISCUSSED WITH PHARMACY CONTINUE PPN AT MAX GOAL RATE OF 70 ML/HR WITH 65 G LIPIDS PROVIDES 1507 TOTAL KCALS (26.1 KCALS/KG CMW), 71 G PROTEIN (1.2 G/KG CMW), 168 G DEXTROSE REPLETE LYTES NEEDED
--- NOTE | 2025-03-31 11:39 | P.PNIM_ITS ---
Subjective Subjective Date of Service: 03/31/25 Interval History: She is awake today, sounds congested, but no hypoxia, still refusing meds and food Physical Exam 2 Exam: Exam: not talking, no agitation this morning, no focal neuro deficit, rest of exam unremarkable. Vital Signs: Vital Signs: Last Vital Signs Temp 99.9 F 03/31/25 10:06 Pulse 85 03/31/25 07:19 Resp 16 03/31/25 07:19 BP 125/60 03/31/25 07:19 Pulse Ox 96 03/31/25 07:19 O2 Del Method Room Air 03/31/25 07:19 O2 Flow Rate 2 03/30/25 11:57 BMI result Body Mass Index 25.7 awake, non conversing sounds congest lungs no rales or wheezes Abd s, nd, nt, ext no edema neuro: NF Psych: catatonic Const: Other: Alert, answering question, no distress CV RRR lung CTA Abd, ext No edema Neuro NF Psych: catonia Objective Data Active Medications Acetaminophen (Acetaminophen 325 Mg Tablet) 650 mg PO Q6H PRN On Hold: 03/26/25 15:06 PRN Reason: Pain, Mild 1-3,fever,headache Calcium Carbonate (Calcium Carbonate 750 Mg Tab.Chew) 750 mg PO Q4H PRN PRN Reason: Heartburn Ceftriaxone Sodium (Ceftriaxone Sodium 1 Gm Vial) 1 gm IVPUSH Q24H [facility] Last Admin: 03/30/25 17:00 Dose: 1 gm Documented By: JUDITH Diazepam (Diazepam 10 Mg/2 Ml Cartridge) 4 mg IVPUSH TID [facility] Last Admin: 03/31/25 09:23 Dose: 4 mg Documented By: COLLIN Docusate Sodium (Docusate Sodium 100 Mg Capsule) 100 mg PO BID PRN PRN Reason: Constipation Fondaparinux (Fondaparinux Sodium 2.5 Mg/0.5 Ml Syringe) 2.5 mg SUBCUT Q24H [facility] Last Admin: 03/30/25 17:05 Dose: 2.5 mg Documented By: JUDITH Guaifenesin (Guaifenesin 200 Mg/10 Ml 10 Ml Liquid) 10 ml PO Q4H PRN PRN Reason: Cough Last Admin: 03/31/25 05:53 Dose: 10 ml Documented By: DAVID Lactated Ringer's (Lr) 1,000 mls @ 150 mls/hr IVCONT .Q6H40M [facility] On Hold: 03/30/25 23:09 Last Infusion: 03/30/25 23:55 Dose: Infused Documented By: DAVID Nutrition (Parenteral) (Parenteral Nutrition) 1,680 mls @ 70 mls/hr IV .Q24H [facility]; Protocol Stop: 03/31/25 20:59 Last Admin: 03/30/25 21:06 Dose: 70 mls/hr Documented By: DAVID Nutrition (Parenteral) (Parenteral Nutrition) 1,680 mls @ 70 mls/hr IV .Q24H [facility]; Protocol Stop: 04/01/25 20:59 Loperamide HCl (Loperamide Hcl 2 Mg Capsule) 2 mg PO Q6H PRN PRN Reason: Diarrhea Magnesium Hydroxide (Milk Of Magnesia 30 Ml Oral.Susp) 30 ml PO DAILY PRN PRN Reason: Constipation Melatonin (Melatonin 3 Mg Tablet) 3 mg PO BEDTIME PRN PRN Reason: Sleep Meropenem (Meropenem 1 Gm Vial) 1 gm IVPUSH Q8H [facility] Last Admin: 03/31/25 05:33 Dose: 1 gm Documented By: DAVID Mirtazapine (Mirtazapine 15 Mg Tablet) 15 mg PO BEDTIME [facility] Last Admin: 03/30/25 20:28 Dose: 15 mg Documented By: DAVID Olanzapine (Olanzapine 10 Mg Vial) 2.5 mg IM BID [facility] Last Admin: 03/31/25 09:18 Dose: Not Given Documented By: COLLIN Non-Admin Reason: pt calm Omeprazole (Omeprazole 20 Mg Capsule.) 20 mg PO DAILY@0630 [facility] Last Admin: 03/31/25 05:33 Dose: 20 mg Documented By: DAVID Ondansetron HCl (Ondansetron Hcl 4 Mg/2 Ml Vial) 4 mg IVPUSH Q8H PRN PRN Reason: Nausea and Vomiting Pharmacy Consult (Consult Rx Parenteral Nutrition Ordering) 1 each MISCELLANE DAILY PRN PRN Reason: Consult order Polyethylene Glycol (Polyethylene Glycol 3350 17 Gm Powd.Pack) 17 gm PO DAILY PRN PRN Reason: Constipation Potassium Chloride (Potassium Chloride Packet 20 Meq Packet) 20 meq PO BID [facility] Last Admin: 03/31/25 09:19 Dose: Not Given Documented By: COLLIN Non-Admin Reason: Patient Refused Senna (Sennosides 8.6 Mg Tablet) 17.2 mg PO BEDTIME [facility] Last Admin: 03/30/25 20:28 Dose: 17.2 mg Documented By: DAVID Sodium Chloride (0.9 % Sodium Chloride Flush 3 Ml Syringe) 3 ml IVFLUSH QSHIFT [facility] Last Admin: 03/31/25 07:31 Dose: Not Given Documented By: COLLIN Non-Admin Reason: Previously Administered Thiamine HCl (Thiamine Hcl 100 Mg Tablet) 100 mg PO BID [facility] Last Admin: 03/31/25 09:19 Dose: Not Given Documented By: COLLIN Non-Admin Reason: Patient Refused Labs 03/31/25 05:03 03/31/25 05:03 Labs: Laboratory Results - last 24 hr 03/31/25 05:03 MCV 89.9 MCH 30.4 MCHC 33.9 RDW 13.8 Plt Count 209 MPV 9.0 L Immature Gran % (Auto) 0.4 Neut % (Auto) 81.2 H Lymph % (Auto) 11.5 L [place] % (Auto) 6.3 Eos % (Auto) 0.3 Baso % (Auto) 0.3 Lymph # (Auto) 1.3 [place] # (Auto) 0.7 Eos # (Auto) 0.0 Baso # (Auto) 0.0 Abs Immat Gran (auto) 0.04 H Absolute Neuts (auto) 9.2 H Absolute Nucleated RBC 0.000 Nucleated RBC % (auto) 0.0 Hold Purple Top SEE NOTE Anion Gap 10 L Estim Creat Clear Calc 114.9 Estimated GFR > 60 Random Glucose 129 H Calcium 9.1 Phosphorus 2.3 L Magnesium 2.0 Albumin 2.9 L Microbiology Microbiology Results: Microbiology 03/29/25 13:16 Blood Culture - Preliminary Blood - Venous No growth after 24 hours. 03/29/25 13:16 Blood Culture - Preliminary Blood - Venous No growth after 24 hours. Assessment and Plan (1) Bipolar 1 disorder: Status: Acute (2) Anxiety: Status: Acute (3) Bipolar 1 disorder, depressed, severe: Status: Acute Plan The patient is a 69-year-old female, currently nonverbal and unable to provide a history. She was diagnosed with a urinary tract infection in the ED, and admission has been requested. Chart review reveals a past medical history significant for recurrent UTIs, bipolar I disorder with depression, osteoarthritis, status post cardiac catheterization, anxiety, GERD, insomnia, osteopenia, and a prior DVT of the left tibial vein (no longer on anticoagulation). At [facility], she has been noncompliant with oral medications and has had poor oral nutritional intake for over one week. Urinary Tract Infection * Urine culture grew?Aerococcus urinae; sensitivities are not routinely performed. * has completed 7 days of Ceftriaxone * Consider transition to oral antibiotics if the patient is clinically stable and able to tolerate oral intake. Catatonia. The patient presented with decompensated bipolar disorder, altered mental status, and catatonia, refusing medications, food, and interventions. She has shown improvement since started benzodiazepine (Valium) IV administration. If able to tolerate oral intake, we will transition to Ativan, which is preferred as first-line therapy for catatonia. Current treatment with Valium will be continued per Psychiatry recommendations, along with other recommendation per Psych (see Psych note). Given her history of positive response, ECT will ultimately be needed. Once medically stabilized, she will require psychiatric admission for further management--discussed with Psych team.. Minimize sedation if too somnolent. She is medically optimized for ECT, no further testing is indicated at this time, ECG reviewed no acute ischemic changes. Spoke to HCP sister Jennifer ok to proceed with ECT Hypoxia with O2 sat of 90 on room air, likely from atelectasis and sedation Xray 03/29.. atelectatis,. Incentive spirometry use when awake enough Already on ceftriaxone mild malnutrition, nutritional consult continue ivf for now Started PPN 03/29 HypOkalemia, corrected History of DVT left lower extremity, no longer on anticoagulation Patient can not take Lovenox d/t rash SCDs ordered, and added Arixtra GERD PPI DVT prophylaxis: SCD, Arixtra Full Code status Quality Stroke Does the patient have a stroke diagnosis?: No Reason for No Anti-thrombotic by Day Two: Drug declined by patient VTE Prior VTE?: No VTE Risk Level:: Medical - low VTE Device Contraindication: N/A - Device Ordered VTE Drug Contraindication: N/A - Med Ordered
--- NOTE | 2025-03-31 14:50 | HO.WOUND ---
Wound Consult: Initial 69yr old? female admitted to [facility] on 03/21/25 19:08- See progress notes and H&P for detailed history.? Wound consult placed for redness to buttock while on unit.? Patient has sitter present and is nonverbal at this time. ? Sacrum / Buttock Etiology: ?Redness Wound Bed: intact redness blanchable tissue Drainage / Odor: None Edges: ? irregular Annel wound: ?redness No Induration, Fluctuance or Warmth noted Goals of Treatment: ? off load pressure foam dressing applied Recommendations: 1. Turn and Reposition every 2 hours and as needed for patient comfort.? Use pillows or wedges to support off loading positions. 2. Off Load all bony prominences with use of pillows and heel boots if needed.? Apply Preventative foams where needed. ? 3. Monitor for incontinence and moisture control, use barrier creams when needed for prevention and treatment. 4. Provide adequate and supplemental nutrition.? 5. Continue low air loss mattress. 6. When applicable maintain blood glucose levels per Providers order. Buttock and Sacrum - Off Load Pressure with Q2 hr turns and use of pillows - Routine cleansing.? Apply skin prep allow to dry.? Cover with foam dressing to aid in off loading and protection from friction. Change every 3 days and PRN. Bilateral Heels? - Elevate heels off of bed surface with pillows.? Float heels off of pillows.? Apply skin prep allow to dry.? Apply heel foam dressings, peel back and assess Q shift and change every 5-7 days and PRN. Re-consult wound care Nurse for wound deterioration or wound changes.
[2025-03-31 20:46] LABS: NT Pro B Type Natriuretic Pept 86.7 pg/mL (<300)
[2025-03-31] MEDS: Potassium Chloride Packet 20 MEQ PACKET PO (20:47)
[2025-03-31] MEDS: Parenteral Nutrition 1,680 ML 70 ML IV (21:29)
[2025-03-31] MEDS: 0.9 % Sodium Chloride Flush 3 ML SYRINGE IVFLUSH (23:14)
[2025-04-01] VITALS (11 sets, daily range): BP systolic 106–145; BP diastolic 55–82; PULSE 78–120; RESP 16–20; TEMP 36.6–37.3; O2SAT 92–96
[2025-04-01] MEDS: diazePAM 10 MG/2 ML CARTRIDGE 4 MG IVPUSH ×3 (05:09→21:27)
[2025-04-01 06:52] LABS: Albumin Level 3.2 g/dL (3.5-5.0); Anion Gap 14 (12-20); Blood Urea Nitrogen 11 mg/dL (9-16); Calcium 9.5 mg/dL (8.4-10.2); Carbon Dioxide 25 mmol/L (22-29); Chloride 104 mmol/L (96-108); Creatinine Clr Calc Pharmacy 107.8; Estimated Glomerular Filt Rate > 60; Magnesium 2.3 mg/dL (1.6-2.6); Potassium 4.4 mmol/L (3.3-5.1); Sodium 139 mmol/L (135-145)
--- NOTE | 2025-04-01 06:53 | P.CONAN_ITS ---
[facility] Active Problems Active Problems: All Active Problems (Updated 03/26/25 @ 14:40 by Francisca Bajwa NP) Catatonia (Acute) Delirium due to another medical condition (Acute) Delirium (Acute) UTI (urinary tract infection) (Acute) Dehydration (Acute) Arthritis of right knee (Acute) Bipolar 1 disorder, depressed, severe (Acute) Elevated troponin (Acute) Chest discomfort (Acute) S/P cardiac catheterization (Acute) Bipolar 1 disorder (Acute) Varus deformity of knee (Acute) Osteoarthritis of left knee (Acute) Anxiety (Acute) GERD (gastroesophageal reflux disease) (Acute) Insomnia (Acute) Osteopenia (Acute) Murmur, cardiac (Acute) Status post total knee replacement, left (Acute) Acute deep vein thrombosis (DVT) of left tibial vein (Chronic) Past Medical History Medical History (Updated 03/26/25 @ 14:40 by Francisca Bajwa NP) Delirium due to another medical condition History of skin cancer Hx of bladder problems VITO (generalized anxiety disorder) Murmur, cardiac Hx of thyroid nodule Osteopenia Hx of skin cancer, basal cell Seasonal allergies Insomnia Constipation GERD (gastroesophageal reflux disease) Anxiety History of electroconvulsive therapy Bipolar 1 disorder Functional capacity: bed bound Family History Family History Mother Basal cell carcinoma (BCC) in situ of skin Osteoporosis Hyperlipidemia Father CAD (coronary artery disease) Alcoholism Sister Osteoporosis Depression Brother Cancer of tongue Cancer of skin Family history of problems with anesthesia: No Surgical History Surgical History Hx of colonoscopy H/O elbow surgery History of back surgery History of Problems with Anesthesia: No Social History Social History Household Members: Unknown / Unable to assess Household Members Other:: brought in from [facility] Housing: Unknown / Unable to assess Are you a primary home care nurse to a significant other at home: No Do you presently have visiting nurse or other home services: Yes Unable to assess alcohol history related to: Unable to respond Comment: 1-1 sitter Patient Tobacco Use Status: Tobacco use Unknown Tobacco use type: Cigarette Years Smoked: 30+, now vapes e-Cigarette/Vaping Use: Currently Using Second Hand Smoke Exposure: No Substance Use Type: Crack/Cocaine Advance Directives Date on File: 06/12/24 service: No Current occupational status: unemployed and retired 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 Sexual orientation: Straight/Heterosexual Meds Allergies Allergy/AdvReac Type Severity Reaction Status Date / Time bee pollen Allergy Severe Anaphylaxis Verified 03/21/25 14:48 levofloxacin (From Levaquin) Allergy Severe Itching Verified 03/21/25 14:48 enoxaparin (From Lovenox) Allergy Intermediate Rash Verified 03/21/25 14:48 Seasonal Allergies Allergy Mild Runny Nose Verified 03/21/25 14:48 venlafaxine (From Effexor) Allergy Mild Constipatio Verified 03/21/25 14:48 n Penicillins Allergy Unknown Unknown Verified 03/21/25 14:48 Active Medications: Current Medications Acetaminophen (Acetaminophen 325 Mg Tablet) 650 mg PO Q6H PRN On Hold: 03/26/25 15:06 PRN Reason: Pain, Mild 1-3,fever,headache Calcium Carbonate (Calcium Carbonate 750 Mg Tab.Chew) 750 mg PO Q4H PRN PRN Reason: Heartburn Ceftriaxone Sodium (Ceftriaxone Sodium 1 Gm Vial) 1 gm IVPUSH Q24H [facility] Last Admin: 03/31/25 17:28 Dose: 1 gm Diazepam (Diazepam 10 Mg/2 Ml Cartridge) 4 mg IVPUSH TID [facility] Last Admin: 04/01/25 05:09 Dose: 4 mg Docusate Sodium (Docusate Sodium 100 Mg Capsule) 100 mg PO BID PRN PRN Reason: Constipation Fondaparinux (Fondaparinux Sodium 2.5 Mg/0.5 Ml Syringe) 2.5 mg SUBCUT Q24H [facility] Last Admin: 03/31/25 16:09 Dose: 2.5 mg Guaifenesin (Guaifenesin 200 Mg/10 Ml 10 Ml Liquid) 10 ml PO Q4H PRN PRN Reason: Cough Last Admin: 03/31/25 05:53 Dose: 10 ml Lactated Ringer's (Lr) 1,000 mls @ 150 mls/hr IVCONT .Q6H40M [facility] On Hold: 03/30/25 23:09 Last Infusion: 03/30/25 23:55 Dose: Infused Nutrition (Parenteral) (Parenteral Nutrition) 1,680 mls @ 70 mls/hr IV .Q24H [facility]; Protocol Stop: 04/01/25 20:59 Last Admin: 03/31/25 21:29 Dose: 70 mls/hr Lactated Ringer's (Lr) 1,000 mls @ 50 mls/hr IVCONT .Q20H [facility] Loperamide HCl (Loperamide Hcl 2 Mg Capsule) 2 mg PO Q6H PRN PRN Reason: Diarrhea Magnesium Hydroxide (Milk Of Magnesia 30 Ml Oral.Susp) 30 ml PO DAILY PRN PRN Reason: Constipation Melatonin (Melatonin 3 Mg Tablet) 3 mg PO BEDTIME PRN PRN Reason: Sleep Meropenem (Meropenem 1 Gm Vial) 1 gm IVPUSH Q8H [facility] Last Admin: 04/01/25 04:22 Dose: 1 gm Mirtazapine (Mirtazapine 15 Mg Tablet) 15 mg PO BEDTIME [facility] Last Admin: 03/31/25 20:47 Dose: 15 mg Naloxone HCl (Naloxone Hcl 0.4 Mg/Ml Vial) 0.04 mg IVPUSH Q5M PRN PRN Reason: Excessive sedation or RR < 8 Olanzapine (Olanzapine 10 Mg Vial) 2.5 mg IM BID [facility] Last Admin: 03/31/25 20:32 Dose: Not Given Omeprazole (Omeprazole 20 Mg Capsule.Dr) 20 mg PO DAILY@0630 [facility] Last Admin: 04/01/25 05:21 Dose: Not Given Ondansetron HCl (Ondansetron Hcl 4 Mg/2 Ml Vial) 4 mg IVPUSH Q8H PRN PRN Reason: Nausea and Vomiting Pharmacy Consult (Consult Rx Parenteral Nutrition Ordering) 1 each MISCELLANE DAILY PRN PRN Reason: Consult order Polyethylene Glycol (Polyethylene Glycol 3350 17 Gm Powd.Pack) 17 gm PO DAILY PRN PRN Reason: Constipation Potassium Chloride (Potassium Chloride Packet 20 Meq Packet) 20 meq PO BID [facility] Last Admin: 03/31/25 20:47 Dose: 20 meq Senna (Sennosides 8.6 Mg Tablet) 17.2 mg PO BEDTIME [facility] Last Admin: 03/31/25 20:47 Dose: 17.2 mg Sodium Chloride (0.9 % Sodium Chloride Flush 3 Ml Syringe) 3 ml IVFLUSH QSHIFT [facility] Last Admin: 03/31/25 23:14 Dose: 3 ml Thiamine HCl (Thiamine Hcl 100 Mg Tablet) 100 mg PO BID [facility] Last Admin: 03/31/25 20:47 Dose: 100 mg Home Medications ?Medication ?Instructions ?Recorded ?Confirmed ?Last Taken ?Type benztropine 0.5 mg tablet 0.5 mg PO Q12H 03/22/25 09/2 07/26 Unknown History docusate sodium 100 mg capsule 1 cap PO BID PRN Consti pation 03/22/25 03/22/25 Unknown History hydroxyzine HCl 25 mg tablet 50 mg PO Q4H PRN Anxiety 03/22/25 03/22/25 Unknown History ibuprofen 400 mg tablet 400 mg PO Q8H PRN Pain 03/2203/22/25 Unknown History loperamide 2 mg tablet 2 mg PO Q6H PRN Diarrhea 03/22/25 Unknown History lorazepam 0.5 mg tablet 0.5 mg PO TID 03/22/2503/22 Unknown History melatonin 3 mg tablet 3 mg PO BEDTIME PRN Sleep 03/22/25 Unknown History mirtazapine 15 mg tablet 15 mg PO BEDTIME 03/22/25 Unknown History nitrofurantoin 100 mg PO BID 03/22/2503/22 Unknown History monohydrate/macrocrystals 100 mg capsule (Macrobid) ondansetron HCl 4 mg tablet 4 mg PO Q6H PRN Nausea And Vomiting 03/22/25 03/22/25 Unknown History pantoprazole 40 mg tablet,delayed 40 mg PO DAILY@0630 03/22/25 03/22/25 Unknown History release quetiapine 400 mg tablet 400 mg PO BEDTIME 03/22/25 0 03/22/25 Unknown History quetiapine 50 mg tablet 50 mg PO BID 03/22/25 Unknown History Exam Height,Weight and Vital Signs: Height 5 ft 4 in Weight 68.039 kg Last Vital Signs Temp 98.0 F 04/01/25 03:25 Pulse 120 H 04/01/25 03:25 Resp 20 04/01/25 03:25 BP 135/68 04/01/25 03:25 Pulse Ox 93 04/01/25 03:25 O2 Del Method Nasal Cannula 04/01/25 03:25 O2 Flow Rate 2 04/01/25 03:25 Pertinent Lab Results Pertinent Lab Results: Laboratory Tests 03/21/25 03/21/25 03/22/25 15:09 16:46 04:12 WBC 11.3 H 7.6 RBC 4.28 3.70 L Hgb 13.2 11.2 L Hct 36.9 L 32.5 L MCV 86.2 87.8 MCH 30.8 30.3 MCHC 35.8 H 34.5 RDW 13.5 13.4 Plt Count 269 234 MPV 9.3 L 9.2 L Immature Gran % (Auto) 0.8 H 0.9 H Neut % (Auto) 77.8 H 67.9 Lymph % (Auto) 11.0 L 17.5 L [place] % (Auto) 10.2 12.4 H Eos % (Auto) 0.0 0.9 Baso % (Auto) 0.2 0.4 Lymph # (Auto) 1.3 1.3 [place] # (Auto) 1.2 0.9 Eos # (Auto) 0.0 0.1 Baso # (Auto) 0.0 0.0 Abs Immat Gran (auto) 0.09 H 0.07 H Absolute Neuts (auto) 8.8 H 5.2 Absolute Nucleated RBC 0.000 0.000 Nucleated RBC % (auto) 0.0 0.0 Hold Purple Top Sodium 136 140 Potassium 4.3 D 2.9 L* D Chloride 104 108 Carbon Dioxide 20 L 22 Anion Gap 16 13 BUN 46 H 25 H Creatinine 1.23 0.62 Estim Creat Clear Calc 42.0 83.4 Estimated GFR 44 > 60 Random Glucose 111 121 H Lactic Acid Calcium 9.9 8.3 L D Phosphorus Magnesium 2.3 Total Bilirubin 0.6 0.6 AST 107 H 80 H ALT 38 H 28 Alkaline Phosphatase 113 88 Ammonia 16 Total Creatine Kinase NT-Pro-B Natriuret Pep Total Protein 7.3 5.7 L Albumin 4.3 3.4 L Triglycerides Cholesterol LDL Cholesterol, Calc HDL Cholesterol Urine Color Yellow Urine Appearance Cloudy Urine pH 5.5 Ur Specific [place] 1.020 Urine Protein 30 (1+) H Urine Glucose (UA) Negative Urine Ketones 15 Urine Blood Small (1+) H Urine Nitrite Negative Ur Leukocyte Esterase Small (1+) H Urine RBC 3-5 H Urine WBC 11-20 H Ur Squamous Epith Cells 0-2 Urine Bacteria 4+ Hyaline Casts 3-5 Urine Opiates Screen Not Detected Ur Buprenorphine Scrn Not Detected Ur Oxycodone Screen Not Detected Urine Methadone Screen Not Detected Urine Fentanyl Screen Not Detected Ur Barbiturates Screen Not Detected Ur Phencyclidine Scrn Not Detected Ur Amphetamines Screen Not Detected U Benzodiazepines Scrn Not Detected Urine Cocaine Screen Not Detected U Marijuana (THC) Screen Not Detected 03/22/25 03/23/25 03/23/25 13:30 05:44 11:28 WBC RBC Hgb Hct MCV MCH MCHC RDW Plt Count MPV Immature Gran % (Auto) Neut % (Auto) Lymph % (Auto) [place] % (Auto) Eos % (Auto) Baso % (Auto) Lymph # (Auto) [place] # (Auto) Eos # (Auto) Baso # (Auto) Abs Immat Gran (auto) Absolute Neuts (auto) Absolute Nucleated RBC Nucleated RBC % (auto) Hold Purple Top SEE NOTE Sodium 139 Potassium 3.1 L 2.7 L* 4.3 D Chloride 109 H Carbon Dioxide 25 Anion Gap 8 L BUN 6 L Creatinine 0.48 L Estim Creat Clear Calc 107.8 Estimated GFR > 60 Random Glucose 134 H Lactic Acid Calcium 8.0 L Phosphorus Magnesium 1.5 L Total Bilirubin AST ALT Alkaline Phosphatase Ammonia Total Creatine Kinase NT-Pro-B Natriuret Pep Total Protein Albumin Triglycerides Cholesterol LDL Cholesterol, Calc HDL Cholesterol Urine Color Urine Appearance Urine pH Ur Specific [place] Urine Protein Urine Glucose (UA) Urine Ketones Urine Blood Urine Nitrite Ur Leukocyte Esterase Urine RBC Urine WBC Ur Squamous Epith Cells Urine Bacteria Hyaline Casts Urine Opiates Screen Ur Buprenorphine Scrn Ur Oxycodone Screen Urine Methadone Screen Urine Fentanyl Screen Ur Barbiturates Screen Ur Phencyclidine Scrn Ur Amphetamines Screen U Benzodiazepines Scrn Urine Cocaine Screen U Marijuana (THC) Screen 03/23/25 03/24/25 03/25/25 17:01 05:12 05:36 WBC RBC Hgb Hct MCV MCH MCHC RDW Plt Count MPV Immature Gran % (Auto) Neut % (Auto) Lymph % (Auto) [place] % (Auto) Eos % (Auto) Baso % (Auto) Lymph # (Auto) [place] # (Auto) Eos # (Auto) Baso # (Auto) Abs Immat Gran (auto) Absolute Neuts (auto) Absolute Nucleated RBC Nucleated RBC % (auto) Hold Purple Top SEE NOTE Sodium 140 141 137 Potassium 3.3 D 3.5 4.0 Chloride 110 H 110 H 105 Carbon Dioxide 24 25 22 Anion Gap 9 L 10 L 14 BUN 3 L 4 L Creatinine 0.49 L 0.54 Estim Creat Clear Calc 105.6 95.8 Estimated GFR > 60 > 60 Random Glucose 122 H 135 H Lactic Acid Calcium 8.1 L 9.5 D Phosphorus Magnesium Total Bilirubin AST ALT Alkaline Phosphatase Ammonia Total Creatine Kinase NT-Pro-B Natriuret Pep Total Protein Albumin Triglycerides Cholesterol LDL Cholesterol, Calc HDL Cholesterol Urine Color Urine Appearance Urine pH Ur Specific [place] Urine Protein Urine Glucose (UA) Urine Ketones Urine Blood Urine Nitrite Ur Leukocyte Esterase Urine RBC Urine WBC Ur Squamous Epith Cells Urine Bacteria Hyaline Casts Urine Opiates Screen Ur Buprenorphine Scrn Ur Oxycodone Screen Urine Methadone Screen Urine Fentanyl Screen Ur Barbiturates Screen Ur Phencyclidine Scrn Ur Amphetamines Screen U Benzodiazepines Scrn Urine Cocaine Screen U Marijuana (THC) Screen 03/26/25 03/27/25 03/28/25 16:26 09:19 09:17 WBC 14.6 H 11.7 H 9.9 RBC 4.63 D 4.29 3.78 L Hgb 14.0 D 13.0 11.6 L Hct 41.0 D 37.1 33.4 L MCV 88.6 86.5 88.4 MCH 30.2 30.3 30.7 MCHC 34.1 35.0 34.7 RDW 13.8 13.7 13.9 Plt Count 268 255 228 MPV 8.5 L 8.4 L 8.4 L Immature Gran % (Auto) 0.8 H Neut % (Auto) 77.9 H Lymph % (Auto) 11.4 L [place] % (Auto) 9.4 Eos % (Auto) 0.1 Baso % (Auto) 0.4 Lymph # (Auto) 1.7 [place] # (Auto) 1.4 H Eos # (Auto) 0.0 Baso # (Auto) 0.1 Abs Immat Gran (auto) 0.11 H Absolute Neuts (auto) 11.4 H Absolute Nucleated RBC 0.000 0.000 0.000 Nucleated RBC % (auto) 0.0 0.0 0.0 Hold Purple Top Sodium 137 140 143 Potassium 4.3 3.8 3.7 Chloride 103 104 109 H Carbon Dioxide 19 L 22 23 Anion Gap 19 18 15 BUN 12 8 L 9 Creatinine 0.57 0.50 0.54 Estim Creat Clear Calc 90.7 103.4 95.8 Estimated GFR > 60 > 60 > 60 Random Glucose 89 79 82 Lactic Acid Calcium 9.4 9.1 8.5 D Phosphorus Magnesium Total Bilirubin 0.4 AST 36 H ALT 24 Alkaline Phosphatase 119 H Ammonia Total Creatine Kinase 325 H NT-Pro-B Natriuret Pep Total Protein 6.8 Albumin 3.7 Triglycerides Cholesterol LDL Cholesterol, Calc HDL Cholesterol Urine Color Urine Appearance Urine pH Ur Specific [place] Urine Protein Urine Glucose (UA) Urine Ketones Urine Blood Urine Nitrite Ur Leukocyte Esterase Urine RBC Urine WBC Ur Squamous Epith Cells Urine Bacteria Hyaline Casts Urine Opiates Screen Ur Buprenorphine Scrn Ur Oxycodone Screen Urine Methadone Screen Urine Fentanyl Screen Ur Barbiturates Screen Ur Phencyclidine Scrn Ur Amphetamines Screen U Benzodiazepines Scrn Urine Cocaine Screen U Marijuana (THC) Screen 03/29/25 03/29/25 03/30/25 13:16 13:17 06:07 WBC 11.0 H RBC 3.98 L Hgb 12.2 Hct 35.1 L MCV 88.2 MCH 30.7 MCHC 34.8 RDW 13.8 Plt Count 224 MPV 8.5 L Immature Gran % (Auto) Neut % (Auto) Lymph % (Auto) [place] % (Auto) Eos % (Auto) Baso % (Auto) Lymph # (Auto) [place] # (Auto) Eos # (Auto) Baso # (Auto) Abs Immat Gran (auto) Absolute Neuts (auto) Absolute Nucleated RBC 0.000 Nucleated RBC % (auto) 0.0 Hold Purple Top SEE NOTE Sodium 138 140 Potassium 3.4 3.3 Chloride 103 104 Carbon Dioxide 26 28 Anion Gap 12 11 L BUN 4 L 8 L Creatinine 0.46 L 0.52 Estim Creat Clear Calc 112.5 99.5 Estimated GFR > 60 > 60 Random Glucose 156 H 140 H Lactic Acid 1.2 Calcium 8.5 9.0 Phosphorus 2.7 Magnesium 1.6 Total Bilirubin AST ALT Alkaline Phosphatase Ammonia Total Creatine Kinase NT-Pro-B Natriuret Pep Total Protein Albumin 2.9 L Triglycerides 72 Cholesterol 132 LDL Cholesterol, Calc 83 HDL Cholesterol 35 L Urine Color Urine Appearance Urine pH Ur Specific [place] Urine Protein Urine Glucose (UA) Urine Ketones Urine Blood Urine Nitrite Ur Leukocyte Esterase Urine RBC Urine WBC Ur Squamous Epith Cells Urine Bacteria Hyaline Casts Urine Opiates Screen Ur Buprenorphine Scrn Ur Oxycodone Screen Urine Methadone Screen Urine Fentanyl Screen Ur Barbiturates Screen Ur Phencyclidine Scrn Ur Amphetamines Screen U Benzodiazepines Scrn Urine Cocaine Screen U Marijuana (THC) Screen 03/30/25 03/31/25 04/01/25 10:57 05:03 05:32 WBC 11.3 H RBC 3.58 L Hgb 10.9 L Hct 32.2 L MCV 89.9 MCH 30.4 MCHC 33.9 RDW 13.8 Plt Count 209 MPV 9.0 L Immature Gran % (Auto) 0.4 Neut % (Auto) 81.2 H Lymph % (Auto) 11.5 L [place] % (Auto) 6.3 Eos % (Auto) 0.3 Baso % (Auto) 0.3 Lymph # (Auto) 1.3 [place] # (Auto) 0.7 Eos # (Auto) 0.0 Baso # (Auto) 0.0 Abs Immat Gran (auto) 0.04 H Absolute Neuts (auto) 9.2 H Absolute Nucleated RBC 0.000 Nucleated RBC % (auto) 0.0 Hold Purple Top SEE NOTE SEE NOTE Sodium 139 139 Potassium 4.3 D 4.4 Chloride 105 104 Carbon Dioxide 28 25 Anion Gap 10 L 14 BUN 9 11 Creatinine 0.45 L 0.48 L Estim Creat Clear Calc 114.9 107.8 Estimated GFR > 60 > 60 Random Glucose 129 H 123 H Lactic Acid 1.2 Calcium 9.1 9.5 Phosphorus 2.3 L 2.8 Magnesium 2.0 2.3 Total Bilirubin AST ALT Alkaline Phosphatase Ammonia Total Creatine Kinase NT-Pro-B Natriuret Pep 86.7 Total Protein Albumin 2.9 L 3.2 L Triglycerides Cholesterol LDL Cholesterol, Calc HDL Cholesterol Urine Color Urine Appearance Urine pH Ur Specific [place] Urine Protein Urine Glucose (UA) Urine Ketones Urine Blood Urine Nitrite Ur Leukocyte Esterase Urine RBC Urine WBC Ur Squamous Epith Cells Urine Bacteria Hyaline Casts Urine Opiates Screen Ur Buprenorphine Scrn Ur Oxycodone Screen Urine Methadone Screen Urine Fentanyl Screen Ur Barbiturates Screen Ur Phencyclidine Scrn Ur Amphetamines Screen U Benzodiazepines Scrn Urine Cocaine Screen U Marijuana (THC) Screen Airway Heart: rrr Lungs: cta Other: patient uncooperative for airway exam Assessment and Plan Assessment Anesthesia Assessment: Anesthesia Plan Discussed and Chart Reviewed Final Anesthetic Review Family History of Problems with Anesthesia: No History of Problems with Anesthesia: No NPO: Yes ASA Class: III Final Preanesthetic Review: No Changes in Pt Med Stat, Meds/Allgs Chart Reviewed and Consent Obtained/Reviewed Patient Risk: Intermediate Procedure Risk: Intermediate Anesthetic Plan Anesthetic Plan: GA Disposition: Standard PACU
--- NOTE | 2025-04-01 07:56 | MHC.SHP ---
Pre-Procedural Eval Section A - 24 Hr Update-Section A only Date of Service: 04/01/25 The patient is an INPATIENT: Yes Changes since office visit: Yes New Medical Problems and Yes Changes in Medication; No Cold of Flu in the past 2 weeks and No Patient answered all questions The patient has been examined within 24 hours of the surgical procedure. The History & Physical has been completed within 30 days and I have reviewed it.: Yes Section B - Complete if H&P > 30 days Chief Complaint: UTI no to PO ABX Allergies: Allergies Allergy/AdvReac Type Severity Reaction Status Date / Time bee pollen Allergy Severe Anaphylaxis Verified 03/21/25 14:48 levofloxacin (From Levaquin) Allergy Severe Itching Verified 03/21/25 14:48 enoxaparin (From Lovenox) Allergy Intermediate Rash Verified 03/21/25 14:48 Seasonal Allergies Allergy Mild Runny Nose Verified 03/21/25 14:48 venlafaxine (From Effexor) Allergy Mild Constipatio Verified 03/21/25 14:48 n Penicillins Allergy Unknown Unknown Verified 03/21/25 14:48 Plan I have reviewed the history and physical and performed a pertinent physical examination on my patient. No changes have occurred unless specified. Time Spent With Patient Time: Total time managing care of this patient today ____ minutes.
[2025-04-01] MEDS: diazePAM 10 MG/2 ML CARTRIDGE 2.5 MG IVPUSH (08:46)
--- NOTE | 2025-04-01 09:51 | MHC.CM.PN ---
Patient is receiving ECT today. Once medically cleared, she will be assessed by psych to determine if she qualifies for an IPLOC.
--- NOTE | 2025-04-01 10:37 | MHC.CLN ---
F/U CONTINUES WITH USUALLY VERY POOR PO INTAKE STARTED ECT TREATMENT NPO FOR ECT REVIEWED LABS COMMUNICATED WITH PHARMACY CONTINUE PPN AT MAX GOAL RATE OF 70 ML/HR WITH 65 G LIPIDS PROVIDES 1507 TOTAL KCALS (26.1 KCALS/KG CMW), 71 G PROTEIN (1.2 G/KG CMW), 168 G DEXTROSE REPLETE LYTES NEEDED FOLLOW FOR PPN TOLERANCE AND PO INTAKE
[2025-04-01] MEDS: Potassium Chloride Packet 20 MEQ PACKET PO (11:07)
[2025-04-01] MEDS: OLANZapine 10 MG VIAL 2.5 MG IM ×2 (11:09→21:27)
[2025-04-01] MEDS: 0.9 % Sodium Chloride Flush 3 ML SYRINGE IVFLUSH ×3 (11:16→19:42)
--- NOTE | 2025-04-01 11:32 | MHC.SL.SWA ---
Speech Pathologist Impression: Oropharyngeal coordination WFL Risk of Aspiration Due to: Reduced awareness Weakness Deconditioning Dysphasia Diet Status: Recommend patient continue on current diet of NDD2 with Thin liquids, pills in puree. 1:1 assist for PO, encourage intake. RD following with supplemental nutrition in place. Liquid Consistency and Strategies for Safe Swallow: Liquid Intake Recommendation: Thin Liquid Intake Strategies: Solid Food Consistency: Dietary Recommendations: Grnd/Mech Altered (NDD2) Additional Modifications to Solid Foods: Oral Medication Intake: Crushed with Puree Please contact the pharmacy regarding appropriate crushable or liquid drug formulations that are available whenever modified delivery is recommended. Compensatory Strategies and Precautions to be Taken for Safe Swallow: Sitting Upright (90 deg) Liquids from Cup Small Bites and Sips Alternate Liquids/Solids Supervision While Eating and Drinking for Safe Swallow: Total Assistance (1:1) Foods to Avoid: Swallowing Recommended Treatments: Compens. Strategy Educat. Recommendation for Speech: Inpatient Speech Therapy Comment: Pt seen s/p ECT tx this morning, pt requesting water (repetitively). Sitter at bedside, RN consulted. Pt tolerated sips of thins by cup and tsps of chocolate pudding with full assist by sitter. Verbal cueing provided, pt showed efficient anticipatory posturing of lips to sip from cup. Straw attempted, pt rounded and protruded lips but unable to draw fluid up straw. Pt needed visual/tactile cues to initiate taking bolus of ice cream from spoon. Oropharyngeal coordination WFL. Pt eye contact shifted briefly from [employer] to sitter when spoken to, with consistent flat affect and absence of response to simple yes/no questions. RN administered medication in ice cream bolus. Diet order confirmed with MD. [employer]ENT continues to follow. Frequency/Duration: Daily M-F Date Range for Service Req: Timeline to reassess: [employer] Mach[employer] Lab Manager Clinican/Clinical Fellow: No Supervisory Statement: I have reviewed and agree with the student/clinical fellow's documentation: N/A Speech Language Pathologist: Ana Calle M.S., [facility]-[employer]
[2025-04-01] MEDS: guaiFENesin 200 MG/10 ML 10 ML LIQUID PO (12:07)
--- NOTE | 2025-04-01 12:49 | HO.WOUND ---
Wound Consult: Follow up 69yr old? female admitted to [facility] on 03/21/25 19:08- See progress notes and H&P for detailed history.? Wound consult placed for redness to buttock while on unit.? Patient has sitter present and is nonverbal at this time. ? re-eval today, improving, no new topical recommendations at this time, wound care will follow. Sacrum / Buttock 03/31/25 Sacrum/buttock 04/01/25 Etiology: ?Redness Wound Bed: intact redness blanchable tissue - improved slightly from previous assessment Drainage / Odor: None Edges: ? irregular Annel wound: ?redness No Induration, Fluctuance or Warmth noted Goals of Treatment: ? off load pressure foam dressing applied Recommendations: 1. Turn and Reposition every 2 hours and as needed for patient comfort.? Use pillows or wedges to support off loading positions. 2. Off Load all bony prominences with use of pillows and heel boots if needed.? Apply Preventative foams where needed. ? 3. Monitor for incontinence and moisture control, use barrier creams when needed for prevention and treatment. 4. Provide adequate and supplemental nutrition.? 5. Continue low air loss mattress. 6. When applicable maintain blood glucose levels per Providers order. Buttock and Sacrum - Off Load Pressure with Q2 hr turns and use of pillows - Routine cleansing.? Apply skin prep allow to dry.? Cover with foam dressing to aid in off loading and protection from friction. Change every 3 days and PRN. Bilateral Heels? - Elevate heels off of bed surface with pillows.? Float heels off of pillows.? Apply skin prep allow to dry.? Apply heel foam dressings, peel back and assess Q shift and change every 5-7 days and PRN. Re-consult wound care Nurse for wound deterioration or wound changes.
--- NOTE | 2025-04-01 17:19 | P.PNIM_ITS ---
Subjective Subjective Date of Service: 04/01/25 Interval History: Had ECT Review of Systems Seems more awake, when I asked her toys name she mumbled dmitry As per the staff she also ate ice cream today. Review of Systems: Yes all other systems are reviewed and are negative Physical Exam 2 Exam: Exam: awake, non conversing sounds congest lungs no rales or wheezes Abd s, nd, nt, ext no edema neuro: NF Psych: catatonic Vital Signs: Vital Signs: Last Vital Signs Temp 98.9 F 04/01/25 16:00 Pulse 96 04/01/25 16:00 Resp 20 04/01/25 16:00 BP 145/65 H 04/01/25 16:00 Pulse Ox 93 04/01/25 16:00 O2 Del Method Room Air 04/01/25 16:00 O2 Flow Rate 6 04/01/25 08:30 BMI result Body Mass Index 25.7 Objective Data Active Medications Acetaminophen (Acetaminophen 325 Mg Tablet) 650 mg PO Q6H PRN On Hold: 03/26/25 15:06 PRN Reason: Pain, Mild 1-3,fever,headache Calcium Carbonate (Calcium Carbonate 750 Mg Tab.Chew) 750 mg PO Q4H PRN PRN Reason: Heartburn Ceftriaxone Sodium (Ceftriaxone Sodium 1 Gm Vial) 1 gm IVPUSH Q24H [facility] Last Admin: 04/01/25 16:55 Dose: 1 gm Documented By: EMANI Diazepam (Diazepam 10 Mg/2 Ml Cartridge) 4 mg IVPUSH TID [facility] Last Admin: 04/01/25 14:54 Dose: 4 mg Documented By: EMANI Comments: Docusate Sodium (Docusate Sodium 100 Mg Capsule) 100 mg PO BID PRN PRN Reason: Constipation Fondaparinux (Fondaparinux Sodium 2.5 Mg/0.5 Ml Syringe) 2.5 mg SUBCUT Q24H [facility] Last Admin: 04/01/25 16:54 Dose: 2.5 mg Documented By: EMANI Guaifenesin (Guaifenesin 200 Mg/10 Ml 10 Ml Liquid) 10 ml PO Q4H PRN PRN Reason: Cough Last Admin: 04/01/25 12:07 Dose: 10 ml Documented By: EMANI Lactated Ringer's (Lr) 1,000 mls @ 75 mls/hr IVCONT .[id number] [facility] Last Admin: 04/01/25 12:09 Dose: Not Given Documented By: EMANI Non-Admin Reason: on tpn Nutrition (Parenteral) (Parenteral Nutrition) 1,680 mls @ 70 mls/hr IV .Q24H [facility]; Protocol Stop: 04/01/25 20:59 Last Admin: 03/31/25 21:29 Dose: 70 mls/hr Documented By: DAVID Nutrition (Parenteral) (Parenteral Nutrition) 1,680 mls @ 70 mls/hr IV .Q24H [facility]; Protocol Stop: 04/02/25 20:59 Loperamide HCl (Loperamide Hcl 2 Mg Capsule) 2 mg PO Q6H PRN PRN Reason: Diarrhea Magnesium Hydroxide (Milk Of Magnesia 30 Ml Oral.Susp) 30 ml PO DAILY PRN PRN Reason: Constipation Melatonin (Melatonin 3 Mg Tablet) 3 mg PO BEDTIME PRN PRN Reason: Sleep Meropenem (Meropenem 1 Gm Vial) 1 gm IVPUSH Q8H [facility] Last Admin: 04/01/25 11:09 Dose: 1 gm Documented By: EMANI Mirtazapine (Mirtazapine 15 Mg Tablet) 15 mg PO BEDTIME [facility] Last Admin: 03/31/25 20:47 Dose: 15 mg Documented By: STELLA Naloxone HCl (Naloxone Hcl 0.4 Mg/Ml Vial) 0.04 mg IVPUSH Q5M PRN PRN Reason: Excessive sedation or RR < 8 Olanzapine (Olanzapine 10 Mg Vial) 2.5 mg IM BID [facility] Last Admin: 04/01/25 11:09 Dose: 2.5 mg Documented By: EMANI Omeprazole (Omeprazole 20 Mg Capsule.) 20 mg PO DAILY@0630 [facility] Last Admin: 04/01/25 05:21 Dose: Not Given Documented By: STELLA Non-Admin Reason: Patient Refused Ondansetron HCl (Ondansetron Hcl 4 Mg/2 Ml Vial) 4 mg IVPUSH Q8H PRN PRN Reason: Nausea and Vomiting Pharmacy Consult (Consult Rx Parenteral Nutrition Ordering) 1 each MISCELLANE DAILY PRN PRN Reason: Consult order Polyethylene Glycol (Polyethylene Glycol 3350 17 Gm Powd.Pack) 17 gm PO DAILY PRN PRN Reason: Constipation Potassium Chloride (Potassium Chloride Packet 20 Meq Packet) 20 meq PO BID [facility] Last Admin: 04/01/25 11:07 Dose: 20 meq Documented By: EMANI Senna (Sennosides 8.6 Mg Tablet) 17.2 mg PO BEDTIME [facility] Last Admin: 03/31/25 20:47 Dose: 17.2 mg Documented By: STELLA Sodium Chloride (0.9 % Sodium Chloride Flush 3 Ml Syringe) 3 ml IVFLUSH QSHIFT [facility] Last Admin: 04/01/25 14:55 Dose: 3 ml Documented By: EMANI Thiamine HCl (Thiamine Hcl 100 Mg Tablet) 100 mg PO BID [facility] Last Admin: 04/01/25 11:07 Dose: 100 mg Documented By: EMANI Labs 03/31/25 05:03 04/01/25 05:32 Labs: Laboratory Results - last 24 hr 03/31/25 04/01/25 05:03 05:32 Hold Purple Top SEE NOTE Anion Gap 14 Estim Creat Clear Calc 107.8 Estimated GFR > 60 Random Glucose 123 H Calcium 9.5 Phosphorus 2.8 Magnesium 2.3 NT-Pro-B Natriuret Pep 86.7 Albumin 3.2 L Microbiology Microbiology Results: Microbiology 03/29/25 13:16 Blood Culture - Preliminary Blood - Venous No growth after 48 hours. 03/29/25 13:16 Blood Culture - Preliminary Blood - Venous No growth after 48 hours. Assessment and Plan (1) Bipolar 1 disorder: Status: Acute (2) Anxiety: Status: Acute (3) Bipolar 1 disorder, depressed, severe: Status: Acute Plan The patient is a 69-year-old female, currently nonverbal and unable to provide a history. She was diagnosed with a urinary tract infection in the ED, and admission has been requested. Chart review reveals a past medical history significant for recurrent UTIs, bipolar I disorder with depression, osteoarthritis, status post cardiac catheterization, anxiety, GERD, insomnia, osteopenia, and a prior DVT of the left tibial vein (no longer on anticoagulation). At [facility], she has been noncompliant with oral medications and has had poor oral nutritional intake for over one week. Urinary Tract Infection * Urine culture grew?Aerococcus urinae; sensitivities are not routinely performed. * has completed 7 days of Ceftriaxone * Consider transition to oral antibiotics if the patient is clinically stable and able to tolerate oral intake. Catatonia. The patient presented with decompensated bipolar disorder, altered mental status, and catatonia, refusing medications, food, and interventions. She has shown improvement since started benzodiazepine (Valium) IV administration. If able to tolerate oral intake, we will transition to Ativan, which is preferred as first-line therapy for catatonia. Current treatment with Valium will be continued per Psychiatry recommendations, along with other recommendation per Psych (see Psych note). Given her history of positive response, ECT will ultimately be needed. Once medically stabilized, she will require psychiatric admission for further management--discussed with Psych team.. Minimize sedation if too somnolent. s/p ect-minimal improving-spoke minimum , ate ice cream. Hypoxia with O2 sat of 90 on room air, likely from atelectasis and sedation Xray 03/29.. atelectatis,. Incentive spirometry use when awake enough Already on ceftriaxone mild malnutrition, nutritional consult continue ivf for now Started PPN 03/29 HypOkalemia, corrected History of DVT left lower extremity, no longer on anticoagulation Patient can not take Lovenox d/t rash SCDs ordered, and added Arixtra GERD PPI DVT prophylaxis: SCD, Arixtra Full Code status Quality Stroke Does the patient have a stroke diagnosis?: No Reason for No Anti-thrombotic by Day Two: Drug declined by patient VTE Prior VTE?: No VTE Risk Level:: Medical - low VTE Device Contraindication: N/A - Device Ordered VTE Drug Contraindication: N/A - Med Ordered
--- NOTE | 2025-04-01 18:24 | PC.NURSE ---
No Void since pt pulled out loving early this AM. Bladder scanned for 656cc. Order to straight cath x1 but upon entering room, pt found to be incontinent large amount urine. Bladder Scanned for PVR 191. Ok to hold off on straight cath at present per Dr. Tan.
[2025-04-01] MEDS: Lactated Ringers 1,000 ML 75 ML IVCONT (19:41)
[2025-04-01] MEDS: Parenteral Nutrition 1,680 ML 70 ML IV (22:38)
--- NOTE | 2025-04-01 23:11 | PC.NURSE ---
Pt refused PO night time meds. Multiple attempts were made to redirect pt, but pt swatted at this RN's hands, saying no. MD aware.
[2025-04-02 03:12] VITALS: BP 104/58; PULSE 75; RESP 16; TEMP 36.7; O2SAT 90
[2025-04-02 06:24] LABS: Albumin Level 2.8 g/dL (3.5-5.0); Anion Gap 8 (12-20); Blood Urea Nitrogen 10 mg/dL (9-16); Calcium 9.1 mg/dL (8.4-10.2); Carbon Dioxide 30 mmol/L (22-29); Chloride 105 mmol/L (96-108); Creatinine Clr Calc Pharmacy 114.9; Estimated Glomerular Filt Rate > 60; Magnesium 2.4 mg/dL (1.6-2.6); Potassium 4.3 mmol/L (3.3-5.1); Sodium 139 mmol/L (135-145)
[2025-04-02 07:50] VITALS: BP 105/53; PULSE 71; RESP 16; TEMP 36.1; O2SAT 92
[2025-04-02] MEDS: OLANZapine 10 MG VIAL 2.5 MG IM ×2 (09:47→20:32)
[2025-04-02] MEDS: 0.9 % Sodium Chloride Flush 3 ML SYRINGE IVFLUSH ×2 (09:48→20:31)
[2025-04-02] MEDS: diazePAM 10 MG/2 ML CARTRIDGE 4 MG IVPUSH ×3 (09:48→20:32)
[2025-04-02] MEDS: Lactated Ringers 1,000 ML 75 ML IVCONT ×2 (09:56→22:40)
--- NOTE | 2025-04-02 10:46 | MHC.CLN ---
F/U CONTINUES WITH VERY POOR PO INTAKE 0-<25% DIET RX: GROUND M/S DIET REVIEWED LABS COMMUNICATED WITH PHARMACY CONTINUE PPN AT MAX GOAL RATE OF 70 ML/HR WITH 65 G LIPIDS PROVIDES 1507 TOTAL KCALS (26.1 KCALS/KG CMW), 71 G PROTEIN (1.2 G/KG CMW), 168 G DEXTROSE REPLETE LYTES NEEDED MONITOR PO INTAKE CLOSELY
--- NOTE | 2025-04-02 10:49 | PC.NURSE ---
D/C Sitter per , Camera and Bed Tuan .
[2025-04-02 11:35] VITALS: BP 107/52; PULSE 76; RESP 16; TEMP 36.7; O2SAT 92
--- NOTE | 2025-04-02 12:17 | HO.WOUND ---
Wound Consult: Follow up 69yr old? female admitted to [facility] on 03/21/25 19:08- See progress notes and H&P for detailed history.? Wound consult placed for redness to buttock while on unit.? Patient no longer has sitter present and is nonverbal at this time. ? Re-eval today, improving, no new topical recommendations at this time, wound care will follow. ZEINA Mattress in use - Patient remains nutritionally compromised nutrition following patient appears cachectic and overall thin. She is noted to have psoriatric skin lesions on her face and arms. Sacrum / Buttock 03/31/25 Sacrum/buttock 04/01/25 04/02/25 Etiology: ?Redness Wound Bed: intact redness blanchable tissue - improved from previous assessment - dark areas are darker in appearance but irregular in texture firm abrasion like pimples not consistent with pressure injury at this time Drainage / Odor: None Edges: ? irregular Annel wound: improving ?redness No Induration, Fluctuance or Warmth noted Goals of Treatment: ? off load pressure foam dressing applied Recommendations: 1. Turn and Reposition every 2 hours and as needed for patient comfort.? Use pillows or wedges to support off loading positions. 2. Off Load all bony prominences with use of pillows and heel boots if needed.? Apply Preventative foams where needed. ? 3. Monitor for incontinence and moisture control, use barrier creams when needed for prevention and treatment. 4. Provide adequate and supplemental nutrition.? 5. Continue low air loss mattress. 6. When applicable maintain blood glucose levels per Providers order. Buttock and Sacrum - Off Load Pressure with Q2 hr turns and use of pillows - Routine cleansing.? Apply skin prep allow to dry.? Cover with foam dressing to aid in off loading and protection from friction. Change every 3 days and PRN. Bilateral Heels? - Elevate heels off of bed surface with pillows.? Float heels off of pillows.? Apply skin prep allow to dry.? Apply heel foam dressings, peel back and assess Q shift and change every 5-7 days and PRN. Re-consult wound care Nurse for wound deterioration or wound changes.
--- NOTE | 2025-04-02 15:56 | MHC.SLORD ---
Speech Language Pathology Order Status: Attempted to see patient in the p.m., patient refused water and po offered. Per RN has been refusing PO all day. [employer] will continue to follow.
[2025-04-02 16:00] VITALS: BP 151/65; PULSE 86; RESP 20; TEMP 36.7; O2SAT 93
--- NOTE | 2025-04-02 16:40 | P.PNIM_ITS ---
Subjective Subjective Date of Service: 04/02/25 Interval History: catatonia Review of Systems seems similar , unchanged. Review of Systems: Yes all other systems are reviewed and are negative Physical Exam 2 Exam: Exam: awake, non conversing sounds congest lungs no rales or wheezes Abd s, nd, nt, ext no edema neuro: NF Psych: catatonic Vital Signs: Vital Signs: Last Vital Signs Temp 98.1 F 04/02/25 16:00 Pulse 86 04/02/25 16:00 Resp 20 04/02/25 16:00 BP 151/65 H 04/02/25 16:00 Pulse Ox 93 04/02/25 16:00 O2 Del Method Room Air 04/02/25 16:00 O2 Flow Rate 6 04/01/25 08:30 BMI result Body Mass Index 25.7 Objective Data Active Medications Acetaminophen (Acetaminophen 325 Mg Tablet) 650 mg PO Q6H PRN On Hold: 03/26/25 15:06 PRN Reason: Pain, Mild 1-3,fever,headache Calcium Carbonate (Calcium Carbonate 750 Mg Tab.Chew) 750 mg PO Q4H PRN PRN Reason: Heartburn Ceftriaxone Sodium (Ceftriaxone Sodium 1 Gm Vial) 1 gm IVPUSH Q24H [facility] Last Admin: 04/01/25 16:55 Dose: 1 gm Documented By: EMANI Diazepam (Diazepam 10 Mg/2 Ml Cartridge) 4 mg IVPUSH TID [facility] Last Admin: 04/02/25 14:48 Dose: 4 mg Documented By: EMANI Docusate Sodium (Docusate Sodium 100 Mg Capsule) 100 mg PO BID PRN PRN Reason: Constipation Fondaparinux (Fondaparinux Sodium 2.5 Mg/0.5 Ml Syringe) 2.5 mg SUBCUT Q24H [facility] Last Admin: 04/01/25 16:54 Dose: 2.5 mg Documented By: EMANI Guaifenesin (Guaifenesin 200 Mg/10 Ml 10 Ml Liquid) 10 ml PO Q4H PRN PRN Reason: Cough Last Admin: 04/01/25 12:07 Dose: 10 ml Documented By: EMANI Lactated Ringer's (Lr) 1,000 mls @ 75 mls/hr IVCONT .[id number] [facility] Last Admin: 04/02/25 09:56 Dose: 75 mls/hr Documented By: EMANI Nutrition (Parenteral) (Parenteral Nutrition) 1,680 mls @ 70 mls/hr IV .Q24H [facility]; Protocol Stop: 04/02/25 20:59 Last Admin: 04/01/25 22:38 Dose: 70 mls/hr Documented By: CHIDI Nutrition (Parenteral) (Parenteral Nutrition) 1,680 mls @ 70 mls/hr IV .Q24H [facility]; Protocol Stop: 04/03/25 20:59 Loperamide HCl (Loperamide Hcl 2 Mg Capsule) 2 mg PO Q6H PRN PRN Reason: Diarrhea Magnesium Hydroxide (Milk Of Magnesia 30 Ml Oral.Susp) 30 ml PO DAILY PRN PRN Reason: Constipation Melatonin (Melatonin 3 Mg Tablet) 3 mg PO BEDTIME PRN PRN Reason: Sleep Meropenem (Meropenem 1 Gm Vial) 1 gm IVPUSH Q8H [facility] Last Admin: 04/02/25 13:36 Dose: 1 gm Documented By: EMANI Mirtazapine (Mirtazapine 15 Mg Tablet) 15 mg PO BEDTIME [facility] Last Admin: 04/01/25 21:44 Dose: Not Given Documented By: CHIDI Non-Admin Reason: Patient Refused Naloxone HCl (Naloxone Hcl 0.4 Mg/Ml Vial) 0.04 mg IVPUSH Q5M PRN PRN Reason: Excessive sedation or RR < 8 Olanzapine (Olanzapine 10 Mg Vial) 2.5 mg IM BID [facility] Last Admin: 04/02/25 09:47 Dose: 2.5 mg Documented By: EMANI Omeprazole (Omeprazole 20 Mg Capsule.) 20 mg PO DAILY@0630 [facility] Last Admin: 04/02/25 05:39 Dose: Not Given Documented By: CHIDI Non-Admin Reason: Patient Refused Ondansetron HCl (Ondansetron Hcl 4 Mg/2 Ml Vial) 4 mg IVPUSH Q8H PRN PRN Reason: Nausea and Vomiting Pharmacy Consult (Consult Rx Parenteral Nutrition Ordering) 1 each MISCELLANE DAILY PRN PRN Reason: Consult order Polyethylene Glycol (Polyethylene Glycol 3350 17 Gm Powd.Pack) 17 gm PO DAILY PRN PRN Reason: Constipation Potassium Chloride (Potassium Chloride Packet 20 Meq Packet) 20 meq PO BID [facility] Last Admin: 04/02/25 10:52 Dose: Not Given Documented By: EMANI Non-Admin Reason: Patient Refused Senna (Sennosides 8.6 Mg Tablet) 17.2 mg PO BEDTIME [facility] Last Admin: 04/01/25 21:52 Dose: Not Given Documented By: CHIDI Non-Admin Reason: Patient Refused Sodium Chloride (0.9 % Sodium Chloride Flush 3 Ml Syringe) 3 ml IVFLUSH QSHIFT [facility] Last Admin: 04/02/25 14:48 Dose: Not Given Documented By: EMANI Non-Admin Reason: IV Running Thiamine HCl (Thiamine Hcl 100 Mg Tablet) 100 mg PO BID [facility] Last Admin: 04/02/25 10:52 Dose: Not Given Documented By: EMANI Non-Admin Reason: Patient Refused Labs 03/31/25 05:03 04/02/25 05:30 Labs: Laboratory Results - last 24 hr 04/02/25 05:30 Anion Gap 8 L Estim Creat Clear Calc 114.9 Estimated GFR > 60 Random Glucose 124 H Calcium 9.1 Phosphorus 3.3 Magnesium 2.4 Albumin 2.8 L Assessment and Plan (1) Bipolar 1 disorder: Status: Acute (2) Anxiety: Status: Acute (3) Bipolar 1 disorder, depressed, severe: Status: Acute Plan The patient is a 69-year-old female, currently nonverbal and unable to provide a history. She was diagnosed with a urinary tract infection in the ED, and admission has been requested. Chart review reveals a past medical history significant for recurrent UTIs, bipolar I disorder with depression, osteoarthritis, status post cardiac catheterization, anxiety, GERD, insomnia, osteopenia, and a prior DVT of the left tibial vein (no longer on anticoagulation). At [facility], she has been noncompliant with oral medications and has had poor oral nutritional intake for over one week. Urinary Tract Infection * Urine culture grew?Aerococcus urinae; sensitivities are not routinely performed. * has completed 7 days of Ceftriaxone * Consider transition to oral antibiotics if the patient is clinically stable and able to tolerate oral intake. Catatonia. The patient presented with decompensated bipolar disorder, altered mental status, and catatonia, refusing medications, food, and interventions. She has shown improvement since started benzodiazepine (Valium) IV administration. If able to tolerate oral intake, we will transition to Ativan, which is preferred as first-line therapy for catatonia. Current treatment with Valium will be continued per Psychiatry recommendations, along with other recommendation per Psych (see Psych note). Given her history of positive response, ECT will ultimately be needed. Once medically stabilized, she will require psychiatric admission for further management--discussed with Psych team.. Minimize sedation if too somnolent. s/p ect-awake ,but does not say much today. Need psych follow-up. Hypoxia with O2 sat of 90 on room air, likely from atelectasis and sedation Xray 03/29.. atelectatis,. Incentive spirometry use when awake enough Already on ceftriaxone mild malnutrition, nutritional consult continue ivf for now Started PPN 03/29 HypOkalemia, corrected History of DVT left lower extremity, no longer on anticoagulation Patient can not take Lovenox d/t rash SCDs ordered, and added Arixtra GERD PPI DVT prophylaxis: SCD, Arixtra Full Code status ongoing need : Catatonia-currently on TPN and IV fluid: Monitor electrolytes, also need psych follow-up. Quality Stroke Does the patient have a stroke diagnosis?: No Reason for No Anti-thrombotic by Day Two: Drug declined by patient VTE Prior VTE?: No VTE Risk Level:: Medical - low VTE Device Contraindication: N/A - Device Ordered VTE Drug Contraindication: N/A - Med Ordered
[2025-04-02 20:00] VITALS: BP 132/64; PULSE 87; RESP 20; TEMP 36.7; O2SAT 96
[2025-04-02] MEDS: Parenteral Nutrition 1,680 ML 70 ML IV (20:48)
--- NOTE | 2025-04-02 20:50 | HO.ECTPROC ---
ECT Procedure Note Diagnosis/Treatment Date of Service: 04/05/25 Diagnosis: Bipolar disorder and Catatonia Previous ECT Date: 05/16/24 Current Treatment Number: 1 Treatment: Series Interval Clinical Notes: Patient's case reviewed extensively with hospitalist service. Informed consent obtained from patient's sister who is affirmed healthcare proxy. Patient was noted to have cough recent chest x-ray did show some atelectasis. Discussed with anesthesia patient's oxygen level went up as she was more alert. Patient quite cachectic has not been taking in much in the way food or nutrition and ECT has helped in the past, under similar circumstances. Patient treated bifrontally tolerated treatment did not require any special interventions. Did discuss case post with Dr. Hernandez and asked to see if patient needed any further pulmonary intervention that could help prior to next treatment for 04/03/2025 Time: Total time managing care of this patient today 40____ minutes. ECT Settings Device: THYMATRON DGx Electrode Placement: Bifrontal Energy Percent: 100 Seizure Duration By EEG (in seconds): 36 Medications Administration General Anesthetic: Etomidate (12) Muscle Relaxant: Succinylcholine (100) Ancillary Medications Miscillaneous Medications: Propofol (30) and Flumazenil (500) Airway Management Airway Management: Bag Mask Ventilation Treatment Recommendations No Changes Recommended: No change Notes: Patient given flumazenil pretreatment since she is on Valium intravenous for catatonia with minimal improvement Pt Tolerated Procedure w/o Issue: Yes
--- NOTE | 2025-04-02 21:13 | P.CNPS_ITS ---
History of Present Illness Date of Service: 04/02/25 @ 1846 Chief Complaint: UTI no to PO ABX Reason for Consult: Not improve after first ECT treatment- Catatonia Requesting physician: Mary Tan Discussed with referring provider: Yes Sources of Information: patient interviewed, chart reviewed and crisis/core team assessment reviewed HPI Narrative: See prior consult note for HPI. Past Psychiatric History: Inpt: [facility] 09/09/2021 (catatonia), 11/03/2023; 12/24/23; 06/10/24. 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 -Per sister, pt has had depression since her early 20s and has suffered from unspecified chronic pain, surgeries. -Hx of multiple psych admissions to [facility] Past medication trials: seroquel, paliperidone, vraylar. Defer to medical team Review of Systems Review of Systems Continue with UTI treatment. no SOB or wheezing. In bed during assessment time. Not talking, not engage in assessment. Cough x1 during time with patient [facility] Medical History (Updated 03/26/25 @ 14:40 by Francisca Bajwa NP) Delirium due to another medical condition History of skin cancer Hx of bladder problems VITO (generalized anxiety disorder) Murmur, cardiac Hx of thyroid nodule Osteopenia Hx of skin cancer, basal cell Seasonal allergies Insomnia Constipation GERD (gastroesophageal reflux disease) Anxiety History of electroconvulsive therapy Bipolar 1 disorder Surgical History Hx of colonoscopy H/O elbow surgery History of back surgery Family History: -Depression. In 1998 her great grandfather hung himself. Social History: -Pt has never been , no children. Dog recently . -Pt's mother (age 88), sister, and brother are involved with pt's care. -She graduated h.s. And has bachelors in psychology. She worked at [facility]. Trauma History: deferred Diagnostics Vital Signs (24Hr): Vital Signs - 24 hr 04/01/25 23:26 04/02/25 03:12 04/02/25 07:50 Temperature 98.7 F 98.1 F 96.9 F Pulse Rate 78 75 71 Respiratory Rate 17 16 16 Blood Pressure 111/55 L 104/58 L 105/53 L Pulse Oximetry 92 90 L 92 Oxygen Delivery Method Room Air Room Air Room Air 04/02/25 11:35 04/02/25 16:00 04/02/25 20:00 Temperature 98.0 F 98.1 F 98.0 F Pulse Rate 76 86 87 Respiratory Rate 16 20 20 Blood Pressure 107/52 L 151/65 H 132/64 Pulse Oximetry 92 93 96 Oxygen Delivery Method Room Air Room Air Room Air BMI result Body Mass Index 25.7 Labs 03/31/25 05:03 04/02/25 05:30 Labs: Laboratory Results - last 48 hr 04/01/25 04/02/25 05:32 05:30 Hold Purple Top SEE NOTE Sodium 139 139 Potassium 4.4 4.3 Chloride 104 105 Carbon Dioxide 25 30 H Anion Gap 14 8 L BUN 11 10 Creatinine 0.48 L 0.45 L Estim Creat Clear Calc 107.8 114.9 Estimated GFR > 60 > 60 Random Glucose 123 H 124 H Calcium 9.5 9.1 Phosphorus 2.8 3.3 Magnesium 2.3 2.4 Albumin 3.2 L 2.8 L Mental Status Exam Mental Status Exam Narrative: Patient is not engaged in assessment, limit language and verbal use, only answer x1 with yes or yeah , mostly mute, and stare at provider. Not express SI/SIB/HI/AVH. Appear restless. Impaired insight and judgment. Wearing hospital attire, holding the doll on her left arm, mostly focus on TV. Medications Medications Current Medications Acetaminophen (Acetaminophen 325 Mg Tablet) 650 mg PO Q6H PRN On Hold: 03/26/25 15:06 PRN Reason: Pain, Mild 1-3,fever,headache Calcium Carbonate (Calcium Carbonate 750 Mg Tab.Chew) 750 mg PO Q4H PRN PRN Reason: Heartburn Ceftriaxone Sodium (Ceftriaxone Sodium 1 Gm Vial) 1 gm IVPUSH Q24H [facility] Last Admin: 04/02/25 17:20 Dose: 1 gm Diazepam (Diazepam 10 Mg/2 Ml Cartridge) 4 mg IVPUSH TID [facility] Last Admin: 04/02/25 20:32 Dose: 4 mg Docusate Sodium (Docusate Sodium 100 Mg Capsule) 100 mg PO BID PRN PRN Reason: Constipation Fondaparinux (Fondaparinux Sodium 2.5 Mg/0.5 Ml Syringe) 2.5 mg SUBCUT Q24H [facility] Last Admin: 04/02/25 17:20 Dose: 2.5 mg Guaifenesin (Guaifenesin 200 Mg/10 Ml 10 Ml Liquid) 10 ml PO Q4H PRN PRN Reason: Cough Last Admin: 04/01/25 12:07 Dose: 10 ml Lactated Ringer's (Lr) 1,000 mls @ 75 mls/hr IVCONT .[id number] [facility] Last Admin: 04/02/25 09:56 Dose: 75 mls/hr Nutrition (Parenteral) (Parenteral Nutrition) 1,680 mls @ 70 mls/hr IV .Q24H [facility]; Protocol Stop: 04/03/25 20:59 Last Admin: 04/02/25 20:48 Dose: 70 mls/hr Loperamide HCl (Loperamide Hcl 2 Mg Capsule) 2 mg PO Q6H PRN PRN Reason: Diarrhea Magnesium Hydroxide (Milk Of Magnesia 30 Ml Oral.Susp) 30 ml PO DAILY PRN PRN Reason: Constipation Melatonin (Melatonin 3 Mg Tablet) 3 mg PO BEDTIME PRN PRN Reason: Sleep Meropenem (Meropenem 1 Gm Vial) 1 gm IVPUSH Q8H [facility] Last Admin: 04/02/25 20:37 Dose: 1 gm Mirtazapine (Mirtazapine 15 Mg Tablet) 15 mg PO BEDTIME [facility] Last Admin: 04/02/25 20:54 Dose: Not Given Naloxone HCl (Naloxone Hcl 0.4 Mg/Ml Vial) 0.04 mg IVPUSH Q5M PRN PRN Reason: Excessive sedation or RR < 8 Olanzapine (Olanzapine 10 Mg Vial) 2.5 mg IM BID [facility] Last Admin: 04/02/25 20:32 Dose: 2.5 mg Omeprazole (Omeprazole 20 Mg Capsule.Dr) 20 mg PO DAILY@0630 [facility] Last Admin: 04/02/25 05:39 Dose: Not Given Ondansetron HCl (Ondansetron Hcl 4 Mg/2 Ml Vial) 4 mg IVPUSH Q8H PRN PRN Reason: Nausea and Vomiting Pharmacy Consult (Consult Rx Parenteral Nutrition Ordering) 1 each MISCELLANE DAILY PRN PRN Reason: Consult order Polyethylene Glycol (Polyethylene Glycol 3350 17 Gm Powd.Pack) 17 gm PO DAILY PRN PRN Reason: Constipation Potassium Chloride (Potassium Chloride Packet 20 Meq Packet) 20 meq PO BID [facility] Last Admin: 04/02/25 20:54 Dose: Not Given Senna (Sennosides 8.6 Mg Tablet) 17.2 mg PO BEDTIME [facility] Last Admin: 04/02/25 20:54 Dose: Not Given Sodium Chloride (0.9 % Sodium Chloride Flush 3 Ml Syringe) 3 ml IVFLUSH QSHIFT [facility] Last Admin: 04/02/25 20:31 Dose: 3 ml Thiamine HCl (Thiamine Hcl 100 Mg Tablet) 100 mg PO BID [facility] Last Admin: 04/02/25 20:54 Dose: Not Given Allergies Allergies Allergy/AdvReac Type Severity Reaction Status Date / Time bee pollen Allergy Severe Anaphylaxis Verified 03/21/25 14:48 levofloxacin (From Levaquin) Allergy Severe Itching Verified 03/21/25 14:48 enoxaparin (From Lovenox) Allergy Intermediate Rash Verified 03/21/25 14:48 Seasonal Allergies Allergy Mild Runny Nose Verified 03/21/25 14:48 venlafaxine (From Effexor) Allergy Mild Constipatio Verified 03/21/25 14:48 n Penicillins Allergy Unknown Unknown Verified 03/21/25 14:48 Assessment & Plan Assessment & Plan (1) Catatonia: Status: Acute Code(s): F06.1 - Catatonic disorder due to known physiological condition Plan Attending Dr Tan requested to FLU with patient regarding catatonia. Dr. Richardson does not see improvement after first ECT yesterday. Case also discuss with RNs on shift and coming shift who has been taking care of patient. patient appears to be restless, not tolerate to PO yet, not eating or drinking. Report after ECT yesterday, patient was eating some ice cream, some pudding and some water but not today. Per nursing, it took for a while before she could fall asleep after PM meds via IV. Continue with current plan: IV fluid and IVpush on meds, Continue with Diazepam until tolerate and able to take it PO, then start on Ativan which is more appropriate for Catatonia. Continue with antibiotic treatment for UTI/Pneumonia. Continue with ECT as plan. Would not see or expect improve only after one ECT treatment. Total time managing care of this patient today ____ minutes. Patient educated on: other (not able to provide education at this time. ) Informed Consent: does not understand and further education needed
[2025-04-03] VITALS (12 sets, daily range): BP systolic 103–143; BP diastolic 57–74; PULSE 78–122; RESP 13–32; TEMP 36.2–37.4; O2SAT 91–97
--- NOTE | 2025-04-03 05:42 | PC.NURSE ---
Pt refused morning blood work.
[2025-04-03] MEDS: OLANZapine 10 MG VIAL 2.5 MG IM (08:59)
[2025-04-03] MEDS: Lactated Ringers 1,000 ML 75 ML IVCONT ×2 (09:00→19:52)
[2025-04-03] MEDS: diazePAM 10 MG/2 ML CARTRIDGE 4 MG IVPUSH (09:00)
--- NOTE | 2025-04-03 10:00 | MHC.CLN ---
F/U CONTINUES WITH VERY POOR PO INTAKE 0-25% DIET RX: GROUND REVIEWED LABS COMMUNICATED WITH PHARMACY CONTINUE PPN AT MAX GOAL RATE OF 70 ML/HR WITH 65 G LIPIDS PROVIDES 1507 TOTAL KCALS (26.1 KCALS/KG CMW), 71 G PROTEIN (1.2 G/KG CMW), 168 G DEXTROSE REPLETE LYTES NEEDED MONITOR PO INTAKE CLOSELY
[2025-04-03 10:14] LABS: Albumin Level 3.3 g/dL (3.5-5.0); Anion Gap 10 (12-20); Blood Urea Nitrogen 12 mg/dL (9-16); Calcium 9.7 mg/dL (8.4-10.2); Carbon Dioxide 28 mmol/L (22-29); Chloride 104 mmol/L (96-108); Creatinine Clr Calc Pharmacy 105.6; Estimated Glomerular Filt Rate > 60; Magnesium 2.4 mg/dL (1.6-2.6); Potassium 4.3 mmol/L (3.3-5.1); Sodium 138 mmol/L (135-145)
--- NOTE | 2025-04-03 10:26 | MHC.CM.PN ---
PER MD ROUNDS, PT STILL CATATONIC, PSYCH FOLLOWING DCP TBD PENDING RECOVERY, IPLOC VS HOME
--- NOTE | 2025-04-03 11:23 | MHC.SHP ---
Pre-Procedural Eval Section A - 24 Hr Update-Section A only Date of Service: 04/03/25 The patient is an INPATIENT: Yes Changes since office visit: Yes New Medical Problems; No Cold of Flu in the past 2 weeks, No Changes in Medication and No Patient answered all questions The patient has been examined within 24 hours of the surgical procedure. The History & Physical has been completed within 30 days and I have reviewed it.: Yes Section B - Complete if H&P > 30 days Chief Complaint: UTI no to PO ABX Allergies: Allergies Allergy/AdvReac Type Severity Reaction Status Date / Time bee pollen Allergy Severe Anaphylaxis Verified 03/21/25 14:48 levofloxacin (From Levaquin) Allergy Severe Itching Verified 03/21/25 14:48 enoxaparin (From Lovenox) Allergy Intermediate Rash Verified 03/21/25 14:48 Seasonal Allergies Allergy Mild Runny Nose Verified 03/21/25 14:48 venlafaxine (From Effexor) Allergy Mild Constipatio Verified 03/21/25 14:48 n Penicillins Allergy Unknown Unknown Verified 03/21/25 14:48 Plan I have reviewed the history and physical and performed a pertinent physical examination on my patient. No changes have occurred unless specified. Time Spent With Patient Time: Total time managing care of this patient today ____ minutes.
--- NOTE | 2025-04-03 11:43 | MHC.SLORD ---
Speech Language Pathology Order Status: [employer]EM[employer] arrived for dysphagia treatment this a.m. and offered several food and drink items. Patient refused, at one point repeated back water when asked Would you like some water?, but when presented with cup, shook her head and said no. RN arrived at this point and informed [employer]EM[employer] patient is NPO for ECT treatment. Patient did not consume any PO. Notified MD that there is no NPO order in [facility]. No further PO trials attempted.
--- NOTE | 2025-04-03 11:44 | HO.WOUND ---
Wound Consult: Follow up 69yr old? female admitted to [facility] on 03/21/25 19:08- See progress notes and H&P for detailed history.? Wound consult placed for redness to buttock while on unit.? Patient no longer has sitter present and is nonverbal at this time. ? Re-eval today, improving, no new topical recommendations at this time, wound care will follow. ZEINA Mattress in use - Patient remains nutritionally compromised nutrition following patient appears cachectic and overall thin. She is noted to have psoriatric skin lesions on her face and arms. Sacrum / Buttock 03/31/25 Sacrum/buttock 04/01/25 04/02/25 Etiology: ?Redness Wound Bed: intact redness blanchable tissue - improved from previous assessment - irregular and not located over bony prominence, dark areas are darker in appearance but irregular in texture firm abrasion like pimples not consistent with pressure injury at this time Drainage / Odor: None Edges: ? irregular Annel wound: improving ?redness No Induration, Fluctuance or Warmth noted Goals of Treatment: ? off load pressure foam dressing applied Recommendations: 1. Turn and Reposition every 2 hours and as needed for patient comfort.? Use pillows or wedges to support off loading positions. 2. Off Load all bony prominences with use of pillows and heel boots if needed.? Apply Preventative foams where needed. ? 3. Monitor for incontinence and moisture control, use barrier creams when needed for prevention and treatment. 4. Provide adequate and supplemental nutrition.? 5. Continue low air loss mattress. 6. When applicable maintain blood glucose levels per Providers order. Buttock and Sacrum - Off Load Pressure with Q2 hr turns and use of pillows - Routine cleansing.? Apply skin prep allow to dry.? Cover with foam dressing to aid in off loading and protection from friction. Change every 3 days and PRN. Bilateral Heels? - Elevate heels off of bed surface with pillows.? Float heels off of pillows.? Apply skin prep allow to dry.? Apply heel foam dressings, peel back and assess Q shift and change every 5-7 days and PRN. Re-consult wound care Nurse for wound deterioration or wound changes.
--- NOTE | 2025-04-03 13:38 | HO.ANESPROP2 ---
FORMERLY [facility], 1928–1983 Active Problems Active Problems: All Active Problems Catatonia (Acute) Delirium due to another medical condition (Acute) Delirium (Acute) UTI (urinary tract infection) (Acute) Dehydration (Acute) Arthritis of right knee (Acute) Bipolar 1 disorder, depressed, severe (Acute) Elevated troponin (Acute) Chest discomfort (Acute) S/P cardiac catheterization (Acute) Bipolar 1 disorder (Acute) Varus deformity of knee (Acute) Osteoarthritis of left knee (Acute) Anxiety (Acute) GERD (gastroesophageal reflux disease) (Acute) Insomnia (Acute) Osteopenia (Acute) Murmur, cardiac (Acute) Status post total knee replacement, left (Acute) Acute deep vein thrombosis (DVT) of left tibial vein (Chronic) Past Medical History Medical History Delirium due to another medical condition History of skin cancer Hx of bladder problems VITO (generalized anxiety disorder) Murmur, cardiac Hx of thyroid nodule Osteopenia Hx of skin cancer, basal cell Seasonal allergies Insomnia Constipation GERD (gastroesophageal reflux disease) Anxiety History of electroconvulsive therapy Bipolar 1 disorder Functional capacity: bed bound Family History Family History Mother Basal cell carcinoma (BCC) in situ of skin Osteoporosis Hyperlipidemia Father CAD (coronary artery disease) Alcoholism Sister Osteoporosis Depression Brother Cancer of tongue Cancer of skin Family history of problems with anesthesia: No Surgical History Surgical History Hx of colonoscopy H/O elbow surgery History of back surgery History of Problems with Anesthesia: No Social History Social History Household Members: Unknown / Unable to assess Household Members Other:: brought in [facility] Housing: Unknown / Unable to assess Are you a primary pharmacist critical care to a significant other at home: No Do you presently have visiting nurse or other home services: Yes Unable to assess alcohol history related to: Unable to respond Comment: 1:1 Patient Tobacco Use Status: Tobacco use Unknown Tobacco use type: Cigarette Years Smoked: 30+, now vapes e-Cigarette/Vaping Use: Currently Using Second Hand Smoke Exposure: No Substance Use Type: Crack/Cocaine Advance Directives Date on File: 06/12/24 service: No Current occupational status: unemployed and retired 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 Sexual orientation: Straight/Heterosexual Meds Allergies Allergy/AdvReac Type Severity Reaction Status Date / Time bee pollen Allergy Severe Anaphylaxis Verified 03/21/25 14:48 levofloxacin (From Levaquin) Allergy Severe Itching Verified 03/21/25 14:48 enoxaparin (From Lovenox) Allergy Intermediate Rash Verified 03/21/25 14:48 Seasonal Allergies Allergy Mild Runny Nose Verified 03/21/25 14:48 venlafaxine (From Effexor) Allergy Mild Constipatio Verified 03/21/25 14:48 n Penicillins Allergy Unknown Unknown Verified 03/21/25 14:48 Active Medications: Current Medications Acetaminophen (Acetaminophen 325 Mg Tablet) 650 mg PO Q6H PRN On Hold: 03/26/25 15:06 PRN Reason: Pain, Mild 1-3,fever,headache Calcium Carbonate (Calcium Carbonate 750 Mg Tab.Chew) 750 mg PO Q4H PRN PRN Reason: Heartburn Ceftriaxone Sodium (Ceftriaxone Sodium 1 Gm Vial) 1 gm IVPUSH Q24H [facility] Last Admin: 04/02/25 17:20 Dose: 1 gm Diazepam (Diazepam 10 Mg/2 Ml Cartridge) 4 mg IVPUSH TID [facility] Last Admin: 04/03/25 09:00 Dose: 4 mg Docusate Sodium (Docusate Sodium 100 Mg Capsule) 100 mg PO BID PRN PRN Reason: Constipation Fondaparinux (Fondaparinux Sodium 2.5 Mg/0.5 Ml Syringe) 2.5 mg SUBCUT Q24H [facility] Last Admin: 04/02/25 17:20 Dose: 2.5 mg Guaifenesin (Guaifenesin 200 Mg/10 Ml 10 Ml Liquid) 10 ml PO Q4H PRN PRN Reason: Cough Last Admin: 04/01/25 12:07 Dose: 10 ml Nutrition (Parenteral) (Parenteral Nutrition) 1,680 mls @ 70 mls/hr IV .Q24H [facility]; Protocol Stop: 04/03/25 20:59 Last Admin: 04/02/25 20:48 Dose: 70 mls/hr Nutrition (Parenteral) (Parenteral Nutrition) 1,680 mls @ 70 mls/hr IV .Q24H [facility]; Protocol Stop: 04/04/25 20:59 Loperamide HCl (Loperamide Hcl 2 Mg Capsule) 2 mg PO Q6H PRN PRN Reason: Diarrhea Magnesium Hydroxide (Milk Of Magnesia 30 Ml Oral.Susp) 30 ml PO DAILY PRN PRN Reason: Constipation Melatonin (Melatonin 3 Mg Tablet) 3 mg PO BEDTIME PRN PRN Reason: Sleep Meropenem (Meropenem 1 Gm Vial) 1 gm IVPUSH Q8H [facility] Last Admin: 04/03/25 11:45 Dose: 1 gm Mirtazapine (Mirtazapine 15 Mg Tablet) 15 mg PO BEDTIME [facility] Last Admin: 04/02/25 20:54 Dose: Not Given Naloxone HCl (Naloxone Hcl 0.4 Mg/Ml Vial) 0.04 mg IVPUSH Q5M PRN PRN Reason: Excessive sedation or RR < 8 Olanzapine (Olanzapine 10 Mg Vial) 2.5 mg IM BID [facility] Last Admin: 04/03/25 08:59 Dose: 2.5 mg Omeprazole (Omeprazole 20 Mg Capsule.Dr) 20 mg PO DAILY@0630 [facility] Last Admin: 04/03/25 05:42 Dose: Not Given Ondansetron HCl (Ondansetron Hcl 4 Mg/2 Ml Vial) 4 mg IVPUSH Q8H PRN PRN Reason: Nausea and Vomiting Pharmacy Consult (Consult Rx Parenteral Nutrition Ordering) 1 each MISCELLANE DAILY PRN PRN Reason: Consult order Polyethylene Glycol (Polyethylene Glycol 3350 17 Gm Powd.Pack) 17 gm PO DAILY PRN PRN Reason: Constipation Potassium Chloride (Potassium Chloride Packet 20 Meq Packet) 20 meq PO BID [facility] Last Admin: 04/03/25 07:12 Dose: Not Given Senna (Sennosides 8.6 Mg Tablet) 17.2 mg PO BEDTIME [facility] Last Admin: 04/02/25 20:54 Dose: Not Given Sodium Chloride (0.9 % Sodium Chloride Flush 3 Ml Syringe) 3 ml IVFLUSH QSHIFT [facility] Last Admin: 04/03/25 07:12 Dose: Not Given Thiamine HCl (Thiamine Hcl 100 Mg Tablet) 100 mg PO BID [facility] Last Admin: 04/03/25 07:12 Dose: Not Given Home Medications ?Medication ?Instructions ?Recorded ?Confirmed ?Last Taken ?Type benztropine 0.5 mg tablet 0.5 mg PO Q12H 03/22/25 03/22/25 Unknown History docusate sodium 100 mg capsule 1 cap PO BID PRN Constipation 03/22/25 03/22/25 Unknown History hydroxyzine HCl 25 mg tablet 50 mg PO Q4H PRN Anxiety 03/22/25 03/22/25 Unknown History ibuprofen 400 mg tablet 400 mg PO Q8H PRN Pain 03/22/25 03/22/25 Unknown History loperamide 2 mg tablet 2 mg PO Q6H PRN Diarrhea 03/22/25 03/22/25 Unknown History lorazepam 0.5 mg tablet 0.5 mg PO TID 03/22/25 03/22/25 Unknown History melatonin 3 mg tablet 3 mg PO BEDTIME PRN Sleep 03/22/25 03/22/25 Unknown History mirtazapine 15 mg tablet 15 mg PO BEDTIME 03/22/25 03/22/25 Unknown History nitrofurantoin 100 mg PO BID 03/22/25 03/22/25 Unknown History monohydrate/macrocrystals 100 mg capsule (Macrobid) ondansetron HCl 4 mg tablet 4 mg PO Q6H PRN Nausea And Vomiting 03/22/25 03/22/25 Unknown History pantoprazole 40 mg tablet,delayed 40 mg PO DAILY@0630 03/22/25 03/22/25 Unknown History release quetiapine 400 mg tablet 400 mg PO BEDTIME 03/22/25 03/22/25 Unknown History quetiapine 50 mg tablet 50 mg PO BID 03/22/25 03/22/25 Unknown History Exam Exam Date and Time: 04/03/2025 Height,Weight and Vital Signs: Height 5 ft 4 in Weight 68.039 kg Last Vital Signs Temp 97.3 F 04/03/25 12:00 Pulse 80 04/03/25 12:00 Resp 18 04/03/25 12:00 BP 124/67 04/03/25 12:00 Pulse Ox 93 04/03/25 12:00 O2 Del Method Room Air 04/03/25 12:00 O2 Flow Rate 6 04/01/25 08:30 Pertinent Lab Results Pertinent Lab Results: Laboratory Tests 03/21/25 03/21/25 03/22/25 15:09 16:46 04:12 WBC 11.3 H 7.6 RBC 4.28 3.70 L Hgb 13.2 11.2 L Hct 36.9 L 32.5 L MCV 86.2 87.8 MCH 30.8 30.3 MCHC 35.8 H 34.5 RDW 13.5 13.4 Plt Count 269 234 MPV 9.3 L 9.2 L Immature Gran % (Auto) 0.8 H 0.9 H Neut % (Auto) 77.8 H 67.9 Lymph % (Auto) 11.0 L 17.5 L [place] % (Auto) 10.2 12.4 H Eos % (Auto) 0.0 0.9 Baso % (Auto) 0.2 0.4 Lymph # (Auto) 1.3 1.3 [place] # (Auto) 1.2 0.9 Eos # (Auto) 0.0 0.1 Baso # (Auto) 0.0 0.0 Abs Immat Gran (auto) 0.09 H 0.07 H Absolute Neuts (auto) 8.8 H 5.2 Absolute Nucleated RBC 0.000 0.000 Nucleated RBC % (auto) 0.0 0.0 Hold Purple Top Sodium 136 140 Potassium 4.3 D 2.9 L* D Chloride 104 108 Carbon Dioxide 20 L 22 Anion Gap 16 13 BUN 46 H 25 H Creatinine 1.23 0.62 Estim Creat Clear Calc 42.0 83.4 Estimated GFR 44 > 60 Random Glucose 111 121 H Lactic Acid Calcium 9.9 8.3 L D Phosphorus Magnesium 2.3 Total Bilirubin 0.6 0.6 AST 107 H 80 H ALT 38 H 28 Alkaline Phosphatase 113 88 Ammonia 16 Total Creatine Kinase NT-Pro-B Natriuret Pep Total Protein 7.3 5.7 L Albumin 4.3 3.4 L Triglycerides Cholesterol LDL Cholesterol, Calc HDL Cholesterol Urine Color Yellow Urine Appearance Cloudy Urine pH 5.5 Ur Specific [place] 1.020 Urine Protein 30 (1+) H Urine Glucose (UA) Negative Urine Ketones 15 Urine Blood Small (1+) H Urine Nitrite Negative Ur Leukocyte Esterase Small (1+) H Urine RBC 3-5 H Urine WBC 11-20 H Ur Squamous Epith Cells 0-2 Urine Bacteria 4+ Hyaline Casts 3-5 Urine Opiates Screen Not Detected Ur Buprenorphine Scrn Not Detected Ur Oxycodone Screen Not Detected Urine Methadone Screen Not Detected Urine Fentanyl Screen Not Detected Ur Barbiturates Screen Not Detected Ur Phencyclidine Scrn Not Detected Ur Amphetamines Screen Not Detected U Benzodiazepines Scrn Not Detected Urine Cocaine Screen Not Detected U Marijuana (THC) Screen Not Detected 03/22/25 03/23/25 03/23/25 13:30 05:44 11:28 WBC RBC Hgb Hct MCV MCH MCHC RDW Plt Count MPV Immature Gran % (Auto) Neut % (Auto) Lymph % (Auto) [place] % (Auto) Eos % (Auto) Baso % (Auto) Lymph # (Auto) [place] # (Auto) Eos # (Auto) Baso # (Auto) Abs Immat Gran (auto) Absolute Neuts (auto) Absolute Nucleated RBC Nucleated RBC % (auto) Hold Purple Top SEE NOTE Sodium 139 Potassium 3.1 L 2.7 L* 4.3 D Chloride 109 H Carbon Dioxide 25 Anion Gap 8 L BUN 6 L Creatinine 0.48 L Estim Creat Clear Calc 107.8 Estimated GFR > 60 Random Glucose 134 H Lactic Acid Calcium 8.0 L Phosphorus Magnesium 1.5 L Total Bilirubin AST ALT Alkaline Phosphatase Ammonia Total Creatine Kinase NT-Pro-B Natriuret Pep Total Protein Albumin Triglycerides Cholesterol LDL Cholesterol, Calc HDL Cholesterol Urine Color Urine Appearance Urine pH Ur Specific [place] Urine Protein Urine Glucose (UA) Urine Ketones Urine Blood Urine Nitrite Ur Leukocyte Esterase Urine RBC Urine WBC Ur Squamous Epith Cells Urine Bacteria Hyaline Casts Urine Opiates Screen Ur Buprenorphine Scrn Ur Oxycodone Screen Urine Methadone Screen Urine Fentanyl Screen Ur Barbiturates Screen Ur Phencyclidine Scrn Ur Amphetamines Screen U Benzodiazepines Scrn Urine Cocaine Screen U Marijuana (THC) Screen 03/23/25 03/24/25 03/25/25 17:01 05:12 05:36 WBC RBC Hgb Hct MCV MCH MCHC RDW Plt Count MPV Immature Gran % (Auto) Neut % (Auto) Lymph % (Auto) [place] % (Auto) Eos % (Auto) Baso % (Auto) Lymph # (Auto) [place] # (Auto) Eos # (Auto) Baso # (Auto) Abs Immat Gran (auto) Absolute Neuts (auto) Absolute Nucleated RBC Nucleated RBC % (auto) Hold Purple Top SEE NOTE Sodium 140 141 137 Potassium 3.3 D 3.5 4.0 Chloride 110 H 110 H 105 Carbon Dioxide 24 25 22 Anion Gap 9 L 10 L 14 BUN 3 L 4 L Creatinine 0.49 L 0.54 Estim Creat Clear Calc 105.6 95.8 Estimated GFR > 60 > 60 Random Glucose 122 H 135 H Lactic Acid Calcium 8.1 L 9.5 D Phosphorus Magnesium Total Bilirubin AST ALT Alkaline Phosphatase Ammonia Total Creatine Kinase NT-Pro-B Natriuret Pep Total Protein Albumin Triglycerides Cholesterol LDL Cholesterol, Calc HDL Cholesterol Urine Color Urine Appearance Urine pH Ur Specific [place] Urine Protein Urine Glucose (UA) Urine Ketones Urine Blood Urine Nitrite Ur Leukocyte Esterase Urine RBC Urine WBC Ur Squamous Epith Cells Urine Bacteria Hyaline Casts Urine Opiates Screen Ur Buprenorphine Scrn Ur Oxycodone Screen Urine Methadone Screen Urine Fentanyl Screen Ur Barbiturates Screen Ur Phencyclidine Scrn Ur Amphetamines Screen U Benzodiazepines Scrn Urine Cocaine Screen U Marijuana (THC) Screen 03/26/25 03/27/25 03/28/25 16:26 09:19 09:17 WBC 14.6 H 11.7 H 9.9 RBC 4.63 D 4.29 3.78 L Hgb 14.0 D 13.0 11.6 L Hct 41.0 D 37.1 33.4 L MCV 88.6 86.5 88.4 MCH 30.2 30.3 30.7 MCHC 34.1 35.0 34.7 RDW 13.8 13.7 13.9 Plt Count 268 255 228 MPV 8.5 L 8.4 L 8.4 L Immature Gran % (Auto) 0.8 H Neut % (Auto) 77.9 H Lymph % (Auto) 11.4 L [place] % (Auto) 9.4 Eos % (Auto) 0.1 Baso % (Auto) 0.4 Lymph # (Auto) 1.7 [place] # (Auto) 1.4 H Eos # (Auto) 0.0 Baso # (Auto) 0.1 Abs Immat Gran (auto) 0.11 H Absolute Neuts (auto) 11.4 H Absolute Nucleated RBC 0.000 0.000 0.000 Nucleated RBC % (auto) 0.0 0.0 0.0 Hold Purple Top Sodium 137 140 143 Potassium 4.3 3.8 3.7 Chloride 103 104 109 H Carbon Dioxide 19 L 22 23 Anion Gap 19 18 15 BUN 12 8 L 9 Creatinine 0.57 0.50 0.54 Estim Creat Clear Calc 90.7 103.4 95.8 Estimated GFR > 60 > 60 > 60 Random Glucose 89 79 82 Lactic Acid Calcium 9.4 9.1 8.5 D Phosphorus Magnesium Total Bilirubin 0.4 AST 36 H ALT 24 Alkaline Phosphatase 119 H Ammonia Total Creatine Kinase 325 H NT-Pro-B Natriuret Pep Total Protein 6.8 Albumin 3.7 Triglycerides Cholesterol LDL Cholesterol, Calc HDL Cholesterol Urine Color Urine Appearance Urine pH Ur Specific [place] Urine Protein Urine Glucose (UA) Urine Ketones Urine Blood Urine Nitrite Ur Leukocyte Esterase Urine RBC Urine WBC Ur Squamous Epith Cells Urine Bacteria Hyaline Casts Urine Opiates Screen Ur Buprenorphine Scrn Ur Oxycodone Screen Urine Methadone Screen Urine Fentanyl Screen Ur Barbiturates Screen Ur Phencyclidine Scrn Ur Amphetamines Screen U Benzodiazepines Scrn Urine Cocaine Screen U Marijuana (THC) Screen 03/29/25 03/29/25 03/30/25 13:16 13:17 06:07 WBC 11.0 H RBC 3.98 L Hgb 12.2 Hct 35.1 L MCV 88.2 MCH 30.7 MCHC 34.8 RDW 13.8 Plt Count 224 MPV 8.5 L Immature Gran % (Auto) Neut % (Auto) Lymph % (Auto) [place] % (Auto) Eos % (Auto) Baso % (Auto) Lymph # (Auto) [place] # (Auto) Eos # (Auto) Baso # (Auto) Abs Immat Gran (auto) Absolute Neuts (auto) Absolute Nucleated RBC 0.000 Nucleated RBC % (auto) 0.0 Hold Purple Top SEE NOTE Sodium 138 140 Potassium 3.4 3.3 Chloride 103 104 Carbon Dioxide 26 28 Anion Gap 12 11 L BUN 4 L 8 L Creatinine 0.46 L 0.52 Estim Creat Clear Calc 112.5 99.5 Estimated GFR > 60 > 60 Random Glucose 156 H 140 H Lactic Acid 1.2 Calcium 8.5 9.0 Phosphorus 2.7 Magnesium 1.6 Total Bilirubin AST ALT Alkaline Phosphatase Ammonia Total Creatine Kinase NT-Pro-B Natriuret Pep Total Protein Albumin 2.9 L Triglycerides 72 Cholesterol 132 LDL Cholesterol, Calc 83 HDL Cholesterol 35 L Urine Color Urine Appearance Urine pH Ur Specific [place] Urine Protein Urine Glucose (UA) Urine Ketones Urine Blood Urine Nitrite Ur Leukocyte Esterase Urine RBC Urine WBC Ur Squamous Epith Cells Urine Bacteria Hyaline Casts Urine Opiates Screen Ur Buprenorphine Scrn Ur Oxycodone Screen Urine Methadone Screen Urine Fentanyl Screen Ur Barbiturates Screen Ur Phencyclidine Scrn Ur Amphetamines Screen U Benzodiazepines Scrn Urine Cocaine Screen U Marijuana (THC) Screen 03/30/25 03/31/25 04/01/25 10:57 05:03 05:32 WBC 11.3 H RBC 3.58 L Hgb 10.9 L Hct 32.2 L MCV 89.9 MCH 30.4 MCHC 33.9 RDW 13.8 Plt Count 209 MPV 9.0 L Immature Gran % (Auto) 0.4 Neut % (Auto) 81.2 H Lymph % (Auto) 11.5 L [place] % (Auto) 6.3 Eos % (Auto) 0.3 Baso % (Auto) 0.3 Lymph # (Auto) 1.3 [place] # (Auto) 0.7 Eos # (Auto) 0.0 Baso # (Auto) 0.0 Abs Immat Gran (auto) 0.04 H Absolute Neuts (auto) 9.2 H Absolute Nucleated RBC 0.000 Nucleated RBC % (auto) 0.0 Hold Purple Top SEE NOTE SEE NOTE Sodium 139 139 Potassium 4.3 D 4.4 Chloride 105 104 Carbon Dioxide 28 25 Anion Gap 10 L 14 BUN 9 11 Creatinine 0.45 L 0.48 L Estim Creat Clear Calc 114.9 107.8 Estimated GFR > 60 > 60 Random Glucose 129 H 123 H Lactic Acid 1.2 Calcium 9.1 9.5 Phosphorus 2.3 L 2.8 Magnesium 2.0 2.3 Total Bilirubin AST ALT Alkaline Phosphatase Ammonia Total Creatine Kinase NT-Pro-B Natriuret Pep 86.7 Total Protein Albumin 2.9 L 3.2 L Triglycerides Cholesterol LDL Cholesterol, Calc HDL Cholesterol Urine Color Urine Appearance Urine pH Ur Specific [place] Urine Protein Urine Glucose (UA) Urine Ketones Urine Blood Urine Nitrite Ur Leukocyte Esterase Urine RBC Urine WBC Ur Squamous Epith Cells Urine Bacteria Hyaline Casts Urine Opiates Screen Ur Buprenorphine Scrn Ur Oxycodone Screen Urine Methadone Screen Urine Fentanyl Screen Ur Barbiturates Screen Ur Phencyclidine Scrn Ur Amphetamines Screen U Benzodiazepines Scrn Urine Cocaine Screen U Marijuana (THC) Screen 04/02/25 04/03/25 05:30 09:14 WBC RBC Hgb Hct MCV MCH MCHC RDW Plt Count MPV Immature Gran % (Auto) Neut % (Auto) Lymph % (Auto) [place] % (Auto) Eos % (Auto) Baso % (Auto) Lymph # (Auto) [place] # (Auto) Eos # (Auto) Baso # (Auto) Abs Immat Gran (auto) Absolute Neuts (auto) Absolute Nucleated RBC Nucleated RBC % (auto) Hold Purple Top Sodium 139 138 Potassium 4.3 4.3 Chloride 105 104 Carbon Dioxide 30 H 28 Anion Gap 8 L 10 L BUN 10 12 Creatinine 0.45 L 0.49 L Estim Creat Clear Calc 114.9 105.6 Estimated GFR > 60 > 60 Random Glucose 124 H 118 H Lactic Acid Calcium 9.1 9.7 D Phosphorus 3.3 3.2 Magnesium 2.4 2.4 Total Bilirubin AST ALT Alkaline Phosphatase Ammonia Total Creatine Kinase NT-Pro-B Natriuret Pep Total Protein Albumin 2.8 L 3.3 L Triglycerides Cholesterol LDL Cholesterol, Calc HDL Cholesterol Urine Color Urine Appearance Urine pH Ur Specific [place] Urine Protein Urine Glucose (UA) Urine Ketones Urine Blood Urine Nitrite Ur Leukocyte Esterase Urine RBC Urine WBC Ur Squamous Epith Cells Urine Bacteria Hyaline Casts Urine Opiates Screen Ur Buprenorphine Scrn Ur Oxycodone Screen Urine Methadone Screen Urine Fentanyl Screen Ur Barbiturates Screen Ur Phencyclidine Scrn Ur Amphetamines Screen U Benzodiazepines Scrn Urine Cocaine Screen U Marijuana (THC) Screen Airway Mallampati Class: Patient Non-Cooperative TM Dist: >3cm Loose/Missing/Broken Teeth: Yes Heart: rrr Lungs: sats 90s room air Other: facial dermatitis. flat affect Assessment and Plan Final Anesthetic Review Family History of Problems with Anesthesia: No History of Problems with Anesthesia: No NPO: Yes ASA Class: III Final Preanesthetic Review: No Changes in Pt Med Stat Patient Risk: Low Procedure Risk: Low Anesthetic Plan Anesthetic Plan: GA Disposition: Standard PACU
[2025-04-03] MEDS: Albuterol Sulfate (0.083%) 2.5 MG/3 ML VIAL.NEB INHALE (15:43)
[2025-04-03] MEDS: 0.9 % Sodium Chloride Flush 3 ML SYRINGE IVFLUSH (17:50)
[2025-04-03] MEDS: Parenteral Nutrition 1,680 ML 70 ML IV (20:58)
--- NOTE | 2025-04-03 21:42 | PC.NURSE ---
pt refusing all night time medications, IV, IM and PO and antibiotics. MD Nye aware.
--- NOTE | 2025-04-03 22:27 | PC.NURSE ---
pt bladder scan at 2200 for 549 mL. MD Nye notified. No plan or orders for straight cath as pt had not been straight cathed all day. Will continue to check pt for urine output.
--- NOTE | 2025-04-04 01:54 | PC.NURSE ---
0115 pt bladder scanned for 846 mL. pt said she wanted to get up and pee. pt assisted to bedside commode and voided 650 mL dark yellow urine - there was also a small amount of urine in brief, sheet and bed protector. Post void bladder scan 231 mL.
[2025-04-04 03:13] VITALS: BP 122/71; PULSE 76; RESP 18; TEMP 36.2; O2SAT 95
--- NOTE | 2025-04-04 06:29 | PC.NURSE ---
0545 pt bladder scanned for 444 mL. Pt assisted to bedside commode and urinated 500 mL dark yellow urine. Post-void bladder scan 0 mL.
[2025-04-04 07:24] VITALS: BP 113/67; PULSE 74; RESP 16; TEMP 36.2; O2SAT 91
[2025-04-04 07:40] LABS: Albumin Level 3.0 g/dL (3.5-5.0); Anion Gap 13 (12-20); Blood Urea Nitrogen 15 mg/dL (9-16); Calcium 9.4 mg/dL (8.4-10.2); Carbon Dioxide 26 mmol/L (22-29); Chloride 103 mmol/L (96-108); Creatinine Clr Calc Pharmacy 107.8; Estimated Glomerular Filt Rate > 60; Magnesium 2.3 mg/dL (1.6-2.6); Potassium 4.2 mmol/L (3.3-5.1); Sodium 138 mmol/L (135-145)
--- NOTE | 2025-04-04 07:56 | HO.PM.IMPN ---
Subjective Subjective Date of Service: 04/04/25 Interval History: psych unable to do ect yesterday question of low sats but sat seemsall aboe 90% range . Review of Systems Patient does not see any chest pain or shortness of breath, no cough Patient is sitting comfortably on the chair, even talking some words today. Her chest x-ray seems better than before. Review of Systems: Yes all other systems are reviewed and are negative Physical Exam Exam: Exam: awake,some conversation lungs no rales or wheezes Abd s, nd, nt, ext no edema neuro: NF Psych: catatonic Vital Signs: Vital Signs: Last Vital Signs Temp 97.2 F 04/04/25 07:24 Pulse 74 04/04/25 07:24 Resp 16 04/04/25 07:24 BP 113/67 04/04/25 07:24 Pulse Ox 91 L 04/04/25 07:24 O2 Del Method Room Air 04/04/25 07:24 O2 Flow Rate 3 04/03/25 15:45 BMI result Body Mass Index 25.7 Objective Data Active Medications Acetaminophen (Acetaminophen 325 Mg Tablet) 650 mg PO Q6H PRN On Hold: 03/26/25 15:06 PRN Reason: Pain, Mild 1-3,fever,headache Calcium Carbonate (Calcium Carbonate 750 Mg Tab.Chew) 750 mg PO Q4H PRN PRN Reason: Heartburn Diazepam (Diazepam 10 Mg/2 Ml Cartridge) 4 mg IVPUSH TID ON LICENSE OF [facility] Last Admin: 04/03/25 20:51 Dose: Not Given Documented By: ADRIENNE Non-Admin Reason: Patient Refused Docusate Sodium (Docusate Sodium 100 Mg Capsule) 100 mg PO BID PRN PRN Reason: Constipation Fondaparinux (Fondaparinux Sodium 2.5 Mg/0.5 Ml Syringe) 2.5 mg SUBCUT Q24H [facility] Last Admin: 04/03/25 17:49 Dose: 2.5 mg Documented By: SANDRA Guaifenesin (Guaifenesin 200 Mg/10 Ml 10 Ml Liquid) 10 ml PO Q4H PRN PRN Reason: Cough Last Admin: 04/01/25 12:07 Dose: 10 ml Documented By: EMANI Nutrition (Parenteral) (Parenteral Nutrition) 1,680 mls @ 70 mls/hr IV .Q24H [facility]; Protocol Stop: 04/04/25 20:59 Last Admin: 04/03/25 20:58 Dose: 70 mls/hr Documented By: ADRIENNE Lactated Ringer's (Lr) 1,000 mls @ 75 mls/hr IVCONT .[id number] ON LICENSE OF [facility] Stop: 04/04/25 08:44 Last Admin: 04/03/25 19:52 Dose: 75 mls/hr Documented By: ADRIENNE Loperamide HCl (Loperamide Hcl 2 Mg Capsule) 2 mg PO Q6H PRN PRN Reason: Diarrhea Magnesium Hydroxide (Milk Of Magnesia 30 Ml Oral.Susp) 30 ml PO DAILY PRN PRN Reason: Constipation Melatonin (Melatonin 3 Mg Tablet) 3 mg PO BEDTIME PRN PRN Reason: Sleep Mirtazapine (Mirtazapine 15 Mg Tablet) 15 mg PO BEDTIME ON LICENSE OF [facility] Last Admin: 04/03/25 22:21 Dose: Not Given Documented By: ADRIENNE Non-Admin Reason: Patient Refused Naloxone HCl (Naloxone Hcl 0.4 Mg/Ml Vial) 0.04 mg IVPUSH Q5M PRN PRN Reason: Excessive sedation or RR < 8 Naloxone HCl (Naloxone Hcl 0.4 Mg/Ml Vial) 0.04 mg IVPUSH Q5M PRN PRN Reason: Excessive sedation or RR < 8 Olanzapine (Olanzapine 10 Mg Vial) 2.5 mg IM BID ON LICENSE OF [facility] Last Admin: 04/03/25 20:52 Dose: Not Given Documented By: ADRIENNE Non-Admin Reason: Patient Refused Omeprazole (Omeprazole 20 Mg Capsule.) 20 mg PO DAILY@0630 ON LICENSE OF [facility] Last Admin: 04/04/25 06:07 Dose: Not Given Documented By: ADRIENNE Non-Admin Reason: Patient Refused Ondansetron HCl (Ondansetron Hcl 4 Mg/2 Ml Vial) 4 mg IVPUSH Q8H PRN PRN Reason: Nausea and Vomiting Pharmacy Consult (Consult Rx Parenteral Nutrition Ordering) 1 each MISCELLANE DAILY PRN PRN Reason: Consult order Polyethylene Glycol (Polyethylene Glycol 3350 17 Gm Powd.Pack) 17 gm PO DAILY PRN PRN Reason: Constipation Potassium Chloride (Potassium Chloride Packet 20 Meq Packet) 20 meq PO BID ON LICENSE OF [facility] Last Admin: 04/03/25 22:21 Dose: Not Given Documented By: ADRIENNE Non-Admin Reason: Patient Refused Senna (Sennosides 8.6 Mg Tablet) 17.2 mg PO BEDTIME ON LICENSE OF [facility] Last Admin: 04/03/25 22:22 Dose: Not Given Documented By: ADRIENNE Non-Admin Reason: Patient Refused Sodium Chloride (0.9 % Sodium Chloride Flush 3 Ml Syringe) 3 ml IVFLUSH QSHIFT ON LICENSE OF [facility] Last Admin: 04/04/25 00:54 Dose: Not Given Documented By: ADRIENNE Non-Admin Reason: IV Running Thiamine HCl (Thiamine Hcl 100 Mg Tablet) 100 mg PO BID ON LICENSE OF [facility] Last Admin: 04/03/25 22:22 Dose: Not Given Documented By: ADRIENNE Non-Admin Reason: Patient Refused Labs 03/31/25 05:03 04/04/25 05:57 Labs: Laboratory Results - last 24 hr 04/03/25 04/04/25 09:14 05:57 Hold Purple Top SEE NOTE Anion Gap 10 L 13 Estim Creat Clear Calc 105.6 107.8 Estimated GFR > 60 > 60 Random Glucose 118 H 119 H Calcium 9.7 D 9.4 Phosphorus 3.2 2.9 Magnesium 2.4 2.3 Albumin 3.3 L 3.0 L Microbiology Microbiology Results: Microbiology 03/29/25 13:16 Blood Culture - Final Blood - Venous No growth after 5 days. 03/29/25 13:16 Blood Culture - Final Blood - Venous No growth after 5 days. Assessment and Plan (1) Bipolar 1 disorder: Status: Acute (2) Anxiety: Status: Acute (3) Bipolar 1 disorder, depressed, severe: Status: Acute Plan The patient is a 69-year-old female, currently nonverbal and unable to provide a history. She was diagnosed with a urinary tract infection in the ED, and admission has been requested. Chart review reveals a past medical history significant for recurrent UTIs, bipolar I disorder with depression, osteoarthritis, status post cardiac catheterization, anxiety, GERD, insomnia, osteopenia, and a prior DVT of the left tibial vein (no longer on anticoagulation). At [facility], she has been noncompliant with oral medications and has had poor oral nutritional intake for over one week. Urinary Tract Infection Urine culture grew?Aerococcus urinae; sensitivities are not routinely performed. has completed 7 days of Ceftriaxone Consider transition to oral antibiotics if the patient is clinically stable and able to tolerate oral intake. Catatonia. The patient presented with decompensated bipolar disorder, altered mental status, and catatonia, refusing medications, food, and interventions. She has shown improvement since started benzodiazepine (Valium) IV administration. If able to tolerate oral intake, we will transition to Ativan, which is preferred as first-line therapy for catatonia. Current treatment with Valium will be continued per Psychiatry recommendations, along with other recommendation per Psych (see Psych note). Given her history of positive response, ECT will ultimately be needed. Once medically stabilized, she will require psychiatric admission for further management--discussed with Psych team.. Minimize sedation if too somnolent. s/p ect-awake ,but does not say much today. Need psych follow-up. Hypoxia with O2 sat of 90 on room air, likely from atelectasis and sedation Xray 03/29.. atelectatis,. Incentive spirometry use when awake enough cxr: 04/03/24:Bibasilar discoid opacities/atelectasis, with improved aeration in the left lower lobe, overall improved prior. recived meropenem for 1 week. mild malnutrition, nutritional consult continue ivf for now Started PPN 03/29 HypOkalemia, corrected History of DVT left lower extremity, no longer on anticoagulation Patient can not take Lovenox d/t rash SCDs ordered, and added Arixtra GERD PPI DVT prophylaxis: SCD, Arixtra Full Code status ongoing need : Catatonia-currently on TPN and IV fluid: Monitor electrolytes, also need psych follow-up. Quality Stroke Does the patient have a stroke diagnosis?: No Reason for No Anti-thrombotic by Day Two: Drug declined by patient VTE Prior VTE?: No VTE Risk Level:: Medical - low VTE Device Contraindication: N/A - Device Ordered VTE Drug Contraindication: N/A - Med Ordered
[2025-04-04] MEDS: OLANZapine 10 MG VIAL 2.5 MG IM (09:09)
[2025-04-04] MEDS: 0.9 % Sodium Chloride Flush 3 ML SYRINGE IVFLUSH ×2 (09:15→20:19)
--- NOTE | 2025-04-04 09:20 | PC.NURSE ---
Patient sitting up in chair, provider Dominick came to bedside for morning rounds - provider verbalized to hold Valium for now to see if patient will eat breakfast. Chair alarm on, call gomez in reach, virtual monitor in place.
[2025-04-04] MEDS: Lactated Ringers 1,000 ML 80 ML IVCONT ×2 (10:48→21:58)
[2025-04-04 12:00] VITALS: BP 117/66; PULSE 85; RESP 16; TEMP 36.3; O2SAT 94
[2025-04-04] MEDS: diazePAM 10 MG/2 ML CARTRIDGE 4 MG IVPUSH ×2 (14:32→20:18)
--- NOTE | 2025-04-04 15:00 | PC.NURSE ---
15:00 - Concern for current IV status - both IV are red and swollen at sites, Provider Tan notified. Multiple attempts made at getting new access - IV placed, PPN infusing, LR paused due to IV access. Provider aware, provider discussed midline placement on Sunday.
[2025-04-04 15:42] VITALS: BP 130/60; PULSE 83; RESP 16; TEMP 36.3
[2025-04-04 20:00] VITALS: BP 122/58; PULSE 83; RESP 18; TEMP 36.5; O2SAT 97
[2025-04-04] MEDS: Parenteral Nutrition 1,680 ML 70 ML IV (21:02)
[2025-04-05] VITALS (8 sets, daily range): BP systolic 95–176; BP diastolic 50–90; PULSE 75–110; RESP 16–20; TEMP 36–36.6; O2SAT 93–97
[2025-04-05 06:11] LABS: Albumin Level 3.2 g/dL (3.5-5.0); Anion Gap 12 (12-20); Blood Urea Nitrogen 12 mg/dL (9-16); Calcium 9.4 mg/dL (8.4-10.2); Carbon Dioxide 25 mmol/L (22-29); Chloride 105 mmol/L (96-108); Creatinine Clr Calc Pharmacy 110.1; Estimated Glomerular Filt Rate > 60; Magnesium 2.2 mg/dL (1.6-2.6); Potassium 4.2 mmol/L (3.3-5.1); Sodium 138 mmol/L (135-145)
--- NOTE | 2025-04-05 07:34 | PC.NURSE ---
Patient was attempting to get out of bed, upon going in room, IV was found, intact, in bed - patient removed IV. Patient and area cleaned up, patient 2A stand by up to chair, chair alarm on, call gomez within reach, virtual monitor in place for safety.
--- NOTE | 2025-04-05 08:07 | P.PNIM_ITS ---
Subjective Subjective Date of Service: 04/05/25 Interval History: follow up catatonia Review of Systems more awake intermitent agiatation Review of Systems: Yes all other systems are reviewed and are negative Physical Exam 2 Exam: Exam: awake,singing song intermittent agaitation lungs no rales or wheezes Abd s, nd, nt, ext no edema neuro: NF Psych: catatonic Vital Signs: Vital Signs: Last Vital Signs Temp 97.3 F 04/05/25 04:00 Pulse 82 04/05/25 04:00 Resp 18 04/05/25 04:00 BP 176/70 H 04/05/25 04:00 Pulse Ox 94 04/05/25 04:00 O2 Del Method Room Air 04/05/25 04:00 O2 Flow Rate 3 04/03/25 15:45 BMI result Body Mass Index 25.7 Objective Data Active Medications Acetaminophen (Acetaminophen 325 Mg Tablet) 650 mg PO Q6H PRN On Hold: 03/26/25 15:06 PRN Reason: Pain, Mild 1-3,fever,headache Calcium Carbonate (Calcium Carbonate 750 Mg Tab.Chew) 750 mg PO Q4H PRN PRN Reason: Heartburn Diazepam (Diazepam 10 Mg/2 Ml Cartridge) 4 mg IVPUSH TID [facility] Last Admin: 04/04/25 20:18 Dose: 4 mg Documented By: ADRIENNE Docusate Sodium (Docusate Sodium 100 Mg Capsule) 100 mg PO BID PRN PRN Reason: Constipation Fondaparinux (Fondaparinux Sodium 2.5 Mg/0.5 Ml Syringe) 2.5 mg SUBCUT Q24H [facility] Last Admin: 04/04/25 18:20 Dose: 2.5 mg Documented By: JEFFERY Guaifenesin (Guaifenesin 200 Mg/10 Ml 10 Ml Liquid) 10 ml PO Q4H PRN PRN Reason: Cough Last Admin: 04/01/25 12:07 Dose: 10 ml Documented By: EMANI Nutrition (Parenteral) (Parenteral Nutrition) 1,680 mls @ 70 mls/hr IV .Q24H [facility]; Protocol Stop: 04/05/25 20:59 Last Admin: 04/04/25 21:02 Dose: 70 mls/hr Documented By: ADRIENNE Lactated Ringer's (Lr) 1,000 mls @ 80 mls/hr IVCONT .[id number] [facility] Last Infusion: 04/05/25 07:31 Dose: 0 mls/hr Documented By: JEFFERY Loperamide HCl (Loperamide Hcl 2 Mg Capsule) 2 mg PO Q6H PRN PRN Reason: Diarrhea Magnesium Hydroxide (Milk Of Magnesia 30 Ml Oral.Susp) 30 ml PO DAILY PRN PRN Reason: Constipation Melatonin (Melatonin 3 Mg Tablet) 3 mg PO BEDTIME PRN PRN Reason: Sleep Mirtazapine (Mirtazapine 15 Mg Tablet) 15 mg PO BEDTIME [facility] Last Admin: 04/04/25 20:26 Dose: Not Given Documented By: ADRIENNE Non-Admin Reason: Patient Refused Naloxone HCl (Naloxone Hcl 0.4 Mg/Ml Vial) 0.04 mg IVPUSH Q5M PRN PRN Reason: Excessive sedation or RR < 8 Naloxone HCl (Naloxone Hcl 0.4 Mg/Ml Vial) 0.04 mg IVPUSH Q5M PRN PRN Reason: Excessive sedation or RR < 8 Olanzapine (Olanzapine 10 Mg Vial) 2.5 mg IM BID [facility] Last Admin: 04/04/25 22:40 Dose: Not Given Documented By: ADRIENNE Non-Admin Reason: Patient Refused Omeprazole (Omeprazole 20 Mg Capsule.) 20 mg PO DAILY@0630 [facility] Last Admin: 04/05/25 06:11 Dose: Not Given Documented By: ADRIENNE Non-Admin Reason: Patient Refused Ondansetron HCl (Ondansetron Hcl 4 Mg/2 Ml Vial) 4 mg IVPUSH Q8H PRN PRN Reason: Nausea and Vomiting Pharmacy Consult (Consult Rx Parenteral Nutrition Ordering) 1 each MISCELLANE DAILY PRN PRN Reason: Consult order Polyethylene Glycol (Polyethylene Glycol 3350 17 Gm Powd.Pack) 17 gm PO DAILY PRN PRN Reason: Constipation Potassium Chloride (Potassium Chloride Packet 20 Meq Packet) 20 meq PO BID [facility] Last Admin: 04/04/25 20:25 Dose: Not Given Documented By: ADRIENNE Non-Admin Reason: Patient Refused Senna (Sennosides 8.6 Mg Tablet) 17.2 mg PO BEDTIME [facility] Last Admin: 04/04/25 20:25 Dose: Not Given Documented By: ADRIENNE Non-Admin Reason: Patient Refused Sodium Chloride (0.9 % Sodium Chloride Flush 3 Ml Syringe) 3 ml IVFLUSH QSHIFT [facility] Last Admin: 04/04/25 20:19 Dose: 3 ml Documented By: ADRIENNE Thiamine HCl (Thiamine Hcl 100 Mg Tablet) 100 mg PO BID [facility] Last Admin: 04/04/25 20:25 Dose: Not Given Documented By: ADRIENNE Non-Admin Reason: Patient Refused Labs 03/31/25 05:03 04/05/25 05:49 Labs: Laboratory Results - last 24 hr 04/05/25 05:49 Anion Gap 12 Estim Creat Clear Calc 110.1 Estimated GFR > 60 Random Glucose 120 H Calcium 9.4 Phosphorus 3.4 Magnesium 2.2 Albumin 3.2 L Assessment and Plan (1) Bipolar 1 disorder: Status: Acute (2) Anxiety: Status: Acute (3) Bipolar 1 disorder, depressed, severe: Status: Acute Plan The patient is a 69-year-old female, currently nonverbal and unable to provide a history. She was diagnosed with a urinary tract infection in the ED, and admission has been requested. Chart review reveals a past medical history significant for recurrent UTIs, bipolar I disorder with depression, osteoarthritis, status post cardiac catheterization, anxiety, GERD, insomnia, osteopenia, and a prior DVT of the left tibial vein (no longer on anticoagulation). At [facility], she has been noncompliant with oral medications and has had poor oral nutritional intake for over one week. Urinary Tract Infection * Urine culture grew?Aerococcus urinae; sensitivities are not routinely performed. * has completed 7 days of Ceftriaxone * Consider transition to oral antibiotics if the patient is clinically stable and able to tolerate oral intake. Catatonia. The patient presented with decompensated bipolar disorder, altered mental status, and catatonia, refusing medications, food, and interventions. She has shown improvement since started benzodiazepine (Valium) IV administration. If able to tolerate oral intake, we will transition to Ativan, which is preferred as first-line therapy for catatonia. Current treatment with Valium will be continued per Psychiatry recommendations, along with other recommendation per Psych (see Psych note). Given her history of positive response, ECT will ultimately be needed. Once medically stabilized, she will require psychiatric admission for further management--discussed with Psych team.. Minimize sedation if too somnolent. s/p ect-awake ,but does not say much today. psych follow-up today :for agiatation. Hypoxia with O2 sat of 90 on room air, likely from atelectasis and sedation Xray 03/29.. atelectatis,. Incentive spirometry use when awake enough cxr: 04/03/24:Bibasilar discoid opacities/atelectasis, with improved aeration in the left lower lobe, overall improved prior. recived meropenem for 1 week. mild malnutrition, nutritional consult continue ivf for now Started PPN 03/29 HypOkalemia, corrected History of DVT left lower extremity, no longer on anticoagulation Patient can not take Lovenox d/t rash SCDs ordered, and added Arixtra GERD PPI DVT prophylaxis: SCD, Arixtra Full Code status ongoing need : Catatonia-currently on TPN and IV fluid: Monitor electrolytes, also need psych follow-up. Quality Stroke Does the patient have a stroke diagnosis?: No Reason for No Anti-thrombotic by Day Two: Drug declined by patient VTE Prior VTE?: No VTE Risk Level:: Medical - low VTE Device Contraindication: N/A - Device Ordered VTE Drug Contraindication: N/A - Med Ordered
--- NOTE | 2025-04-05 08:41 | MHC.CLN ---
F/U PT NOT TAKING PO DIET RX: GROUND REVIEWED LABS COMMUNICATED WITH PHARMACY CONTINUE PPN AT MAX GOAL RATE OF 70 ML/HR WITH 65 G LIPIDS PROVIDES 1507 TOTAL KCALS (26.1 KCALS/KG CMW), 71 G PROTEIN (1.2 G/KG CMW), 168 G DEXTROSE REPLETE LYTES NEEDED MONITOR PO INTAKE CLOSELY
[2025-04-05] MEDS: diazePAM 10 MG/2 ML CARTRIDGE 4 MG IVPUSH (08:43)
[2025-04-05] MEDS: OLANZapine 10 MG VIAL 2.5 MG IM (08:45)
[2025-04-05] MEDS: 0.9 % Sodium Chloride Flush 3 ML SYRINGE IVFLUSH (08:47)
--- NOTE | 2025-04-05 08:47 | PC.NURSE ---
Patient sitting in chair, appears comfortable, not attempting to get up. Patient singing out loud and chanting songs about the Lord , patient watching mandaen ceremony on TV. Chair alarm in place, call gomez within reach, virtual monitor in place.
--- NOTE | 2025-04-05 14:01 | PC.NURSE ---
Loss peripheral IV access due to patient's restlessness. Provider Tan aware of loss of access. Patient compliant with attempts at IV placement by multiple nurses with no success. Reached out to staff members to see if U/S guided IV can be placed, awaiting response. 1:1 remains at bedside due to patient's restlessness and attempting to get out of bed and fall risk. Patient yelling out. Bed alarm on. Virtual monitor in place.
--- NOTE | 2025-04-05 15:24 | P.CNPS_ITS ---
History of Present Illness Date of Service: 04/05/25 at 1504 Chief Complaint: UTI no to PO ABX Reason for Consult: Agitation Requesting physician: Mary Tan Discussed with referring provider: Yes Sources of Information: patient interviewed, chart reviewed and crisis/core team assessment reviewed HPI Narrative: See Previous consult for HPI Past Psychiatric History: Inpt: [facility] [place] 09/09/[place]21 (cat[place]), 11/03/2023; 12/24/23; 06/10/24. 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 -Per sister, pt has had depression since her early 20s and has suffered from unspecified chronic pain, surgeries. -Hx of multiple psych admissions to [facility] Past medication trials: seroquel, paliperidone, vraylar. [facility]LY [facility] Medical History Delirium due to another medical condition History of skin cancer Hx of bladder problems VITO (generalized anxiety disorder) Murmur, cardiac Hx of thyroid nodule Osteopenia Hx of skin cancer, basal cell Seasonal allergies Insomnia Constipation GERD (gastroesophageal reflux disease) Anxiety History of electroconvulsive therapy Bipolar 1 disorder Surgical History Hx of colonoscopy H/O elbow surgery History of back surgery Family History: -Depression. In 1998 her great grandfather hung himself. Social History: -Pt has never been , no children. Dog recently . -Pt's mother (age 88), sister, and brother are involved with pt's care. -She graduated h.s. And has bachelors in psychology. She worked at [facility]. Trauma History: deferred Diagnostics Vital Signs (24Hr): Vital Signs - 24 hr 04/04/25 15:42 04/04/25 20:00 04/05/25 00:00 Temperature 97.3 F 97.7 F 96.8 F Pulse Rate 83 83 87 Respiratory Rate 16 18 16 Blood Pressure 130/60 122/58 L 121/50 L Pulse Oximetry 97 97 Oxygen Delivery Method Room Air Room Air 04/05/25 04:00 04/05/25 08:00 04/05/25 12:00 Temperature 97.3 F 97.3 F 97.1 F Pulse Rate 82 108 H 110 H Respiratory Rate 18 16 18 Blood Pressure 176/70 H 140/88 H 138/66 Pulse Oximetry 94 95 96 Oxygen Delivery Method Room Air Room Air Room Air BMI result Body Mass Index 25.7 Labs 03/31/25 05:03 04/06/25 06:00 Labs: Laboratory Results - last 48 hr 04/04/25 04/05/25 05:57 05:49 Hold Purple Top SEE NOTE Sodium 138 138 Potassium 4.2 4.2 Chloride 103 105 Carbon Dioxide 26 25 Anion Gap 13 12 BUN 15 12 Creatinine 0.48 L 0.47 L Estim Creat Clear Calc 107.8 110.1 Estimated GFR > 60 > 60 Random Glucose 119 H 120 H Calcium 9.4 9.4 Phosphorus 2.9 3.4 Magnesium 2.3 2.2 Albumin 3.0 L 3.2 L Mental Status Exam Mental Status Exam Narrative: Patient is A+O, wearing hospital attire, distracted, lying in bed. Eyes focused on the TV screen. Poor eye contact, not meet but nonsensical mostly. Not express SI/SIB/HI/AVH. Feeling awful , appears preoccupied, restless, tried to get out of bed. Thought processes disorganized, not linear. Medications Medications Current Medications Acetaminophen (Acetaminophen 325 Mg Tablet) 650 mg PO Q6H PRN On Hold: 03/26/25 15:06 PRN Reason: Pain, Mild 1-3,fever,headache Calcium Carbonate (Calcium Carbonate 750 Mg Tab.Chew) 750 mg PO Q4H PRN PRN Reason: Heartburn Diazepam (Diazepam 10 Mg/2 Ml Cartridge) 4 mg IVPUSH TID GRECIA Last Admin: 04/05/25 08:43 Dose: 4 mg Docusate Sodium (Docusate Sodium 100 Mg Capsule) 100 mg PO BID PRN PRN Reason: Constipation Fondaparinux (Fondaparinux Sodium 2.5 Mg/0.5 Ml Syringe) 2.5 mg SUBCUT Q24H GRECIA Last Admin: 04/04/25 18:20 Dose: 2.5 mg Guaifenesin (Guaifenesin 200 Mg/10 Ml 10 Ml Liquid) 10 ml PO Q4H PRN PRN Reason: Cough Last Admin: 04/01/25 12:07 Dose: 10 ml Nutrition (Parenteral) (Parenteral Nutrition) 1,680 mls @ 70 mls/hr IV .Q24H GRECIA; Protocol Stop: 04/05/25 20:59 Last Infusion: 04/05/25 13:59 Dose: 0 mls/hr Lactated Ringer's (Lr) 1,000 mls @ 80 mls/hr IVCONT .[id number] [facility] Last Infusion: 04/05/25 07:31 Dose: 0 mls/hr Nutrition (Parenteral) (Parenteral Nutrition) 1,680 mls @ 70 mls/hr IV .Q24H [facility]; Protocol Stop: 04/06/25 20:59 Loperamide HCl (Loperamide Hcl 2 Mg Capsule) 2 mg PO Q6H PRN PRN Reason: Diarrhea Lorazepam (Lorazepam 1 Mg Tablet) 1 mg PO ONCE ONE Stop: 04/05/25 15:22 Magnesium Hydroxide (Milk Of Magnesia 30 Ml Oral.Susp) 30 ml PO DAILY PRN PRN Reason: Constipation Melatonin (Melatonin 3 Mg Tablet) 3 mg PO BEDTIME PRN PRN Reason: Sleep Mirtazapine (Mirtazapine 15 Mg Tablet) 15 mg PO BEDTIME [facility] Last Admin: 04/04/25 20:26 Dose: Not Given Naloxone HCl (Naloxone Hcl 0.4 Mg/Ml Vial) 0.04 mg IVPUSH Q5M PRN PRN Reason: Excessive sedation or RR < 8 Naloxone HCl (Naloxone Hcl 0.4 Mg/Ml Vial) 0.04 mg IVPUSH Q5M PRN PRN Reason: Excessive sedation or RR < 8 Olanzapine (Olanzapine 10 Mg Vial) 2.5 mg IM BID [facility] Last Admin: 04/05/25 08:45 Dose: 2.5 mg Omeprazole (Omeprazole 20 Mg Capsule.Dr) 20 mg PO DAILY@0630 [facility] Last Admin: 04/05/25 06:11 Dose: Not Given Ondansetron HCl (Ondansetron Hcl 4 Mg/2 Ml Vial) 4 mg IVPUSH Q8H PRN PRN Reason: Nausea and Vomiting Pharmacy Consult (Consult Rx Parenteral Nutrition Ordering) 1 each MISCELLANE DAILY PRN PRN Reason: Consult order Polyethylene Glycol (Polyethylene Glycol 3350 17 Gm Powd.Pack) 17 gm PO DAILY PRN PRN Reason: Constipation Potassium Chloride (Potassium Chloride Packet 20 Meq Packet) 20 meq PO BID [facility] Last Admin: 04/05/25 08:47 Dose: Not Given Senna (Sennosides 8.6 Mg Tablet) 17.2 mg PO BEDTIME [facility] Last Admin: 04/04/25 20:25 Dose: Not Given Sodium Chloride (0.9 % Sodium Chloride Flush 3 Ml Syringe) 3 ml IVFLUSH QSHIFT [facility] Last Admin: 04/05/25 08:47 Dose: 3 ml Thiamine HCl (Thiamine Hcl 100 Mg Tablet) 100 mg PO BID [facility] Last Admin: 04/05/25 08:47 Dose: Not Given Allergies Allergies Allergy/AdvReac Type Severity Reaction Status Date / Time bee pollen Allergy Severe Anaphylaxis Verified 03/21/25 14:48 levofloxacin (From Levaquin) Allergy Severe Itching Verified 03/21/25 14:48 enoxaparin (From Lovenox) Allergy Intermediate Rash Verified 03/21/25 14:48 Seasonal Allergies Allergy Mild Runny Nose Verified 03/21/25 14:48 venlafaxine (From Effexor) Allergy Mild Constipatio Verified 03/21/25 14:48 n Penicillins Allergy Unknown Unknown Verified 03/21/25 14:48 Assessment & Plan Assessment & Plan (1) Agitated: Status: Acute Code(s): R45.1 - Restlessness and agitation Plan Attending Dr Tan requested to FLU with patient regarding agitation. Teresanet attempted to get out of bed, restless. Per sitter and nursing, patient fulled on IV line out, one of them off possible from moving around. Patient did not allow to get IV back in. At this time, there is no IV line to push IV Valium. However, she ate whole tray with extra juice offered for dinner. Patient is difficult to redirect at times. Slightly better in term of verbal conversation even though sometime it is nonsensical. She was singing loudly prior to meeting with this provider per sitter. Knowing she is in [place] but not further answering questions. Randomly saying Some animals, I ate them while looking at TV screen. Per sitter, she talked about sister and mother, thinking they are here. Keep getting out of bed, swearing, restless. . Do not want to take PO meds, trial of PO Ativan 1 mg x1 but refused it. Nursing and Dr Tan contact this provider again for agitation and combative behaviors. Given IM x1 of Zyprexa 5 with Valium 5. Continue with current plan: IV fluid and IVpush on meds and make IV access as soon as possible. There are none access by the time of assessment. Continue with Diazepam until tolerate and able to take it PO, then start on Ativan which is more appropriate for Catatonia. Continue with antibiotic treatment for UTI/Pneumonia if not completed treatment. Continue with ECT as plan. Would not see or expect improve only after one ECT treatment. Total time managing care of this patient today ____ minutes. Patient educated on: other (Not able to provide teaching at this time d/t AMS) Informed Consent: further education needed
--- NOTE | 2025-04-05 15:40 | PC.NURSE ---
Patient has 1:1 at bedside. 1:1 reported patient patient self fed and at all her food on the lunch tray. Lunch plate was empty. Box, psychological aide came to bedside and assessed patient, discussed ordering PO Ativan. Attempted to give PO Ativa whole, patient would not take pill, tried crushing pill and mixing with pudding and patient would not take, kept mouth close, turning head away and swatting spoon away. Provider Box notified patient did not take PO Ativan. Still attempting to get IV access. 1:1 remains at bedside, virtual monitor, bed alarm and call gomez in place.
[2025-04-05] MEDS: OLANZapine 10 MG VIAL 5 MG IM (17:30)
[2025-04-05] MEDS: diazePAM 10 MG/2 ML CARTRIDGE 5 MG IM (17:31)
--- NOTE | 2025-04-05 17:36 | PC.NURSE ---
Patient yelling out, swearing at staff. Continuously yelling to let me go down stairs . Patient attempting to get out of bed, swatting at staff. Reached out to Provider Dominick, aware patient did not receive scheduled IV Valium due to loss of IV access, asked provider for IM medications - no order placed. Reached out to psych Box, IM orders placed for patient. IM medications administered to patient. Patient requesting to walk down there and go outside , patient ambulated in hallway with 2 CNAs, gait belt, walker and wheel chair behind patient, patient ambulated to nurses station then placed in wheel chair to bring back to room. Patient continuously yelling out I want to go down there . Patient placed back in bed, bed alarm on, 1:1 at bedside, virtual monitor in place. ICU nurse at bedside attempting U/S guided IV.
[2025-04-05] MEDS: Parenteral Nutrition 1,680 ML 70 ML IV (21:00)
--- NOTE | 2025-04-05 21:51 | HO.ECTPROC ---
ECT Procedure Note Diagnosis/Treatment Date of Service: 04/03/25 Diagnosis: Bipolar disorder Previous ECT Date: 04/01/25 Current Treatment Number: 2 Treatment: Series Interval Clinical Notes: Patient continues to be on the medical floor is getting some IV nutrition minimal intake. Some cough pre on the medical floor patient was treated rtlf have some respiratory compromise post. Anesthesia concerns were relayed to the hospitalist service. Time: Total time managing care of this patient today _35___ minutes. ECT Settings Device: THYMATRON DGx Electrode Placement: Rt temporal/ Lt frontal Program/Pulse Width: 0.50 Energy Percent: 100 Seizure Duration By EEG (in seconds): 37 Medications Administration General Anesthetic: Etomidate (12) Muscle Relaxant: Succinylcholine (100) Ancillary Medications Miscillaneous Medications: Flumazenil Airway Management Airway Management: Bag Mask Ventilation Treatment Recommendations Electrode Placement: Bifrontal Program/Pulse Width: 0.50 Energy Percent: 100 Notes: Apparently patient had some postop respiratory difficulties. Might decrease etomidate perhaps go back to bifrontal although I do not see how this could be a contributing factor unless she had more confusion
--- NOTE | 2025-04-05 21:52 | PC.NURSE ---
pt was given 5 mg IM valium and 5 mg IM olazapine at 1730 on previous shift by TAURUS Valdez. pt has been sleeping since thus night time meds were not given.
[2025-04-06 03:14] VITALS: BP 109/59; PULSE 81; RESP 16; TEMP 36.8; O2SAT 93
[2025-04-06 07:03] LABS: Albumin Level 3.0 g/dL (3.5-5.0); Anion Gap 10 (12-20); Blood Urea Nitrogen 14 mg/dL (9-16); Calcium 9.2 mg/dL (8.4-10.2); Carbon Dioxide 27 mmol/L (22-29); Chloride 105 mmol/L (96-108); Creatinine Clr Calc Pharmacy 105.6; Estimated Glomerular Filt Rate > 60; Magnesium 2.3 mg/dL (1.6-2.6); Potassium 4.2 mmol/L (3.3-5.1); Sodium 138 mmol/L (135-145)
[2025-04-06 07:25] VITALS: BP 114/68; PULSE 86; RESP 16; TEMP 36; O2SAT 96
[2025-04-06 07:44] LABS: Hemoglobin A1C 112.9747 umol/L; Total Hemoglobin (HGBA1C) 3016.4956 umol/L
[2025-04-06] MEDS: OLANZapine 10 MG VIAL 2.5 MG IM ×2 (08:38→21:29)
[2025-04-06] MEDS: diazePAM 10 MG/2 ML CARTRIDGE 4 MG IVPUSH ×3 (08:38→21:28)
--- NOTE | 2025-04-06 10:28 | MHC.CLN ---
F/U DIET RX: NPO. PATIENT NPO WITH ECT TX. USUAL DIET RX: GROUND. CONTINUES WITH PPN. INTAKE NOTED 100% AT LUNCH / BUT PO INTAKE USUALLY POOR. SKIN WITH STAGE I PRESSURE INJURY TO BILATERAL BUTTOCKS. REVIEWED LABS. COMMUNICATED WITH PHARMACY. CONTINUE PPN AT MAX GOAL RATE OF 70 ML/HR WITH 65 G LIPIDS TO PROVIDE 1507 TOTAL KCALS (26.1 KCALS/KG CMW), 71 G PROTEIN (1.2 G/KG CMW), 168 G DEXTROSE. REPLETE LYTES NEEDED. CHECK TRIGLYCERIDES. MONITOR PO INTAKE CLOSELY AND ADJUST PPN NEEDED.
[2025-04-06 12:00] VITALS: BP 113/72; PULSE 84; RESP 16; TEMP 36; O2SAT 93
--- NOTE | 2025-04-06 13:58 | MHC.CM.PN ---
EMR REVIEWED AND PER MD ROUNDS, PT CONTINUES TO BE SEEN BY PSYCH/ECT TREATMENTS CONTINUE. CM WILL CONTINUE TO FOLLOW FOR PLAN.
--- NOTE | 2025-04-06 14:12 | P.CONPL_ITS ---
History of Present Illness History of Present Illness Consult date: 04/06/25 Chief complaint: Pulmonary periprocedural risk assessment Narrative: 69-year-old lady, former 30 pack-year smoker, with underlying bipolar disorder, depression, CAD, remote lower extremity DVT currently not on anticoagulation hospitalized with catatonia and plan for electroconvulsive therapy. Patient is unable/unwilling to participate in evaluation, this information has been obtained from chart review. Pulmonary. Procedural risk assessment for electroconvulsive therapy has been requested. It appears that patient does not have underlying history of lung disease except possible undiagnosed emphysema versus COPD secondary to prolonged smoking. Review of Systems 2 Review of Systems: Yes Unobtainable due to mental condition PMFSH Past Medical History Medical History Delirium due to another medical condition History of skin cancer Hx of bladder problems VITO (generalized anxiety disorder) Murmur, cardiac Hx of thyroid nodule Osteopenia Hx of skin cancer, basal cell Seasonal allergies Insomnia Constipation GERD (gastroesophageal reflux disease) Anxiety History of electroconvulsive therapy Bipolar 1 disorder Family History Family History Mother Basal cell carcinoma (BCC) in situ of skin Osteoporosis Hyperlipidemia Father CAD (coronary artery disease) Alcoholism Sister Osteoporosis Depression Brother Cancer of tongue Cancer of skin Surgical History Surgical History Hx of colonoscopy H/O elbow surgery History of back surgery Social History Social History Household Members: Unknown / Unable to assess Household Members Other:: brought in from [facility] Housing: Unknown / Unable to assess Are you a primary palliative care nurse to a significant other at home: No Do you presently have visiting nurse or other home services: Yes Unable to assess alcohol history related to: Unable to respond Comment: 1-1 sitter Patient Tobacco Use Status: Tobacco use Unknown Tobacco use type: Cigarette Years Smoked: 30+, now vapes e-Cigarette/Vaping Use: Currently Using Second Hand Smoke Exposure: No Substance Use Type: Crack/Cocaine Advance Directives Date on File: 06/12/24 service: No Current occupational status: unemployed and retired 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 Sexual orientation: Straight/Heterosexual Travel History Ebola Risk: Travel/Contact With Anyone From Affected Area/s: No Has Patient Experienced Ebola Symptoms: No Meds Allergies Allergy/AdvReac Type Severity Reaction Status Date / Time bee pollen Allergy Severe Anaphylaxis Verified 03/21/25 14:48 levofloxacin (From Levaquin) Allergy Severe Itching Verified 03/21/25 14:48 enoxaparin (From Lovenox) Allergy Intermediate Rash Verified 03/21/25 14:48 Seasonal Allergies Allergy Mild Runny Nose Verified 03/21/25 14:48 venlafaxine (From Effexor) Allergy Mild Constipatio Verified 03/21/25 14:48 n Penicillins Allergy Unknown Unknown Verified 03/21/25 14:48 Active Medications: Current Medications Acetaminophen (Acetaminophen 325 Mg Tablet) 650 mg PO Q6H PRN On Hold: 03/26/25 15:06 PRN Reason: Pain, Mild 1-3,fever,headache Calcium Carbonate (Calcium Carbonate 750 Mg Tab.Chew) 750 mg PO Q4H PRN PRN Reason: Heartburn Diazepam (Diazepam 10 Mg/2 Ml Cartridge) 4 mg IVPUSH TID [facility] Last Admin: 04/06/25 08:38 Dose: 4 mg Docusate Sodium (Docusate Sodium 100 Mg Capsule) 100 mg PO BID PRN PRN Reason: Constipation Fondaparinux (Fondaparinux Sodium 2.5 Mg/0.5 Ml Syringe) 2.5 mg SUBCUT Q24H [facility] Last Admin: 04/05/25 18:19 Dose: 2.5 mg Guaifenesin (Guaifenesin 200 Mg/10 Ml 10 Ml Liquid) 10 ml PO Q4H PRN PRN Reason: Cough Last Admin: 04/01/25 12:07 Dose: 10 ml Lactated Ringer's (Lr) 1,000 mls @ 80 mls/hr IVCONT .[id number] [facility] Last Admin: 04/06/25 13:03 Dose: Not Given Nutrition (Parenteral) (Parenteral Nutrition) 1,680 mls @ 70 mls/hr IV .Q24H [facility]; Protocol Stop: 04/06/25 20:59 Last Admin: 04/05/25 21:00 Dose: 70 mls/hr Nutrition (Parenteral) (Parenteral Nutrition) 1,680 mls @ 70 mls/hr IV .Q24H [facility]; Protocol Stop: 04/07/25 20:59 Loperamide HCl (Loperamide Hcl 2 Mg Capsule) 2 mg PO Q6H PRN PRN Reason: Diarrhea Magnesium Hydroxide (Milk Of Magnesia 30 Ml Oral.Susp) 30 ml PO DAILY PRN PRN Reason: Constipation Melatonin (Melatonin 3 Mg Tablet) 3 mg PO BEDTIME PRN PRN Reason: Sleep Naloxone HCl (Naloxone Hcl 0.4 Mg/Ml Vial) 0.04 mg IVPUSH Q5M PRN PRN Reason: Excessive sedation or RR < 8 Naloxone HCl (Naloxone Hcl 0.4 Mg/Ml Vial) 0.04 mg IVPUSH Q5M PRN PRN Reason: Excessive sedation or RR < 8 Olanzapine (Olanzapine 10 Mg Vial) 2.5 mg IM BID [facility] Last Admin: 04/06/25 08:38 Dose: 2.5 mg Omeprazole (Omeprazole 20 Mg Capsule.Dr) 20 mg PO DAILY@0630 [facility] Last Admin: 04/06/25 06:07 Dose: Not Given Ondansetron HCl (Ondansetron Hcl 4 Mg/2 Ml Vial) 4 mg IVPUSH Q8H PRN PRN Reason: Nausea and Vomiting Pharmacy Consult (Consult Rx Parenteral Nutrition Ordering) 1 each MISCELLANE DAILY PRN PRN Reason: Consult order Polyethylene Glycol (Polyethylene Glycol 3350 17 Gm Powd.Pack) 17 gm PO DAILY PRN PRN Reason: Constipation Potassium Chloride (Potassium Chloride Packet 20 Meq Packet) 20 meq PO BID [facility] Last Admin: 04/06/25 11:40 Dose: Not Given Senna (Sennosides 8.6 Mg Tablet) 17.2 mg PO BEDTIME [facility] Last Admin: 04/05/25 21:51 Dose: Not Given Sodium Chloride (0.9 % Sodium Chloride Flush 3 Ml Syringe) 3 ml IVFLUSH QSHIFT [facility] Last Admin: 04/06/25 07:13 Dose: Not Given Thiamine HCl (Thiamine Hcl 100 Mg Tablet) 100 mg PO BID [facility] Last Admin: 04/06/25 10:45 Dose: Not Given Home Medications ?Medication ?Instructions ?Recorded ?Confirmed ?Last Taken ?Type benztropine 0.5 mg tablet 0.5 mg PO Q12H 03/22/25 09/2 07/26 Unknown History docusate sodium 100 mg capsule 1 cap PO BID PRN Consti pation 03/22/25 03/22/25 Unknown History hydroxyzine HCl 25 mg tablet 50 mg PO Q4H PRN Anxiety 03/22/25 03/22/25 Unknown History ibuprofen 400 mg tablet 400 mg PO Q8H PRN Pain 03/2203/22/25 Unknown History loperamide 2 mg tablet 2 mg PO Q6H PRN Diarrhea 03/22/25 Unknown History lorazepam 0.5 mg tablet 0.5 mg PO TID 03/22/2503/22 Unknown History melatonin 3 mg tablet 3 mg PO BEDTIME PRN Sleep 03/22/25 Unknown History mirtazapine 15 mg tablet 15 mg PO BEDTIME 03/22/25 Unknown History nitrofurantoin 100 mg PO BID 03/22/2503/22 Unknown History monohydrate/macrocrystals 100 mg capsule (Macrobid) ondansetron HCl 4 mg tablet 4 mg PO Q6H PRN Nausea And Vomiting 03/22/25 03/22/25 Unknown History pantoprazole 40 mg tablet,delayed 40 mg PO DAILY@0630 03/22/25 03/22/25 Unknown History release quetiapine 400 mg tablet 400 mg PO BEDTIME 03/22/25 0 03/22/25 Unknown History quetiapine 50 mg tablet 50 mg PO BID 03/22/25 Unknown History Physical Exam 2 Vital Signs: Vital Signs: Last Vital Signs Temp 96.8 F 04/06/25 12:00 Pulse 84 04/06/25 12:00 Resp 16 04/06/25 12:00 BP 113/72 04/06/25 12:00 Pulse Ox 93 04/06/25 12:00 O2 Del Method Room Air 04/06/25 12:00 O2 Flow Rate 3 04/03/25 15:45 BMI result Body Mass Index 25.7 Const: General: no acute distress, alert, awake and other (Not cooperating) Eyes: Sclerae: sclerae normal EOM: EOMs intact bilaterally Neck: Neck: Yes no lymphadenopathy, Yes trachea midline and Yes supple Resp: Effort & Inspection: normal respiratory effort and no respiratory distress Auscultation: clear to auscultation bilaterally Cardio: Rate: regular rate Rhythm: regular rhythm Heart sounds: no gallops, no murmurs and no rubs GI: Palpation (GI): Soft to palpation and Other GI palpation findings present ( Nontender) Auscultation: normal bowel sounds Extrem: General: Yes no pedal edema, No clubbing and No cyanosis Results Laboratory Findings 03/31/25 05:03 04/06/25 06:00 Abnormal lab findings: Abnormal Labs 03/21/25 03/21/25 03/22/25 15:09 16:46 04:12 WBC 11.3 H RBC 3.70 L Hgb 11.2 L Hct 36.9 L 32.5 L MCHC 35.8 H MPV 9.3 L 9.2 L Immature Gran % (Auto) 0.8 H 0.9 H Neut % (Auto) 77.8 H Lymph % (Auto) 11.0 L 17.5 L Mayes % (Auto) 12.4 H Mayes # (Auto) Abs Immat Gran (auto) 0.09 H 0.07 H Absolute Neuts (auto) 8.8 H Potassium 2.9 L* D Chloride Carbon Dioxide 20 L Anion Gap BUN 46 H 25 H Creatinine Random Glucose 121 H Calcium 8.3 L D Phosphorus Magnesium AST 107 H 80 H ALT 38 H Alkaline Phosphatase Total Creatine Kinase Total Protein 5.7 L Albumin 3.4 L HDL Cholesterol Urine Protein 30 (1+) H Urine Blood Small (1+) H Ur Leukocyte Esterase Small (1+) H Urine RBC 3-5 H Urine WBC 11-20 H 03/22/25 03/23/25 03/23/25 13:30 05:44 17:01 WBC RBC Hgb Hct MCHC MPV Immature Gran % (Auto) Neut % (Auto) Lymph % (Auto) Mayes % (Auto) Mayes # (Auto) Abs Immat Gran (auto) Absolute Neuts (auto) Potassium 3.1 L 2.7 L* Chloride 109 H 110 H Carbon Dioxide Anion Gap 8 L 9 L BUN 6 L Creatinine 0.48 L Random Glucose 134 H Calcium 8.0 L Phosphorus Magnesium 1.5 L AST ALT Alkaline Phosphatase Total Creatine Kinase Total Protein Albumin HDL Cholesterol Urine Protein Urine Blood Ur Leukocyte Esterase Urine RBC Urine WBC 03/24/25 03/25/25 03/26/25 05:12 05:36 16:26 WBC 14.6 H RBC Hgb Hct MCHC MPV 8.5 L Immature Gran % (Auto) 0.8 H Neut % (Auto) 77.9 H Lymph % (Auto) 11.4 L Mayes % (Auto) Mayes # (Auto) 1.4 H Abs Immat Gran (auto) 0.11 H Absolute Neuts (auto) 11.4 H Potassium Chloride 110 H Carbon Dioxide 19 L Anion Gap 10 L BUN 3 L 4 L Creatinine 0.49 L Random Glucose 122 H 135 H Calcium 8.1 L Phosphorus Magnesium AST 36 H ALT Alkaline Phosphatase 119 H Total Creatine Kinase 325 H Total Protein Albumin HDL Cholesterol Urine Protein Urine Blood Ur Leukocyte Esterase Urine RBC Urine WBC 03/27/25 03/28/25 03/29/25 09:19 09:17 13:16 WBC 11.7 H RBC 3.78 L Hgb 11.6 L Hct 33.4 L MCHC MPV 8.4 L 8.4 L Immature Gran % (Auto) Neut % (Auto) Lymph % (Auto) Mayes % (Auto) Mayes # (Auto) Abs Immat Gran (auto) Absolute Neuts (auto) Potassium Chloride 109 H Carbon Dioxide Anion Gap BUN 8 L 4 L Creatinine 0.46 L Random Glucose 156 H Calcium Phosphorus Magnesium AST ALT Alkaline Phosphatase Total Creatine Kinase Total Protein Albumin HDL Cholesterol Urine Protein Urine Blood Ur Leukocyte Esterase Urine RBC Urine WBC 03/29/25 03/30/25 03/31/25 13:17 06:07 05:03 WBC 11.0 H 11.3 H RBC 3.98 L 3.58 L Hgb 10.9 L Hct 35.1 L 32.2 L MCHC MPV 8.5 L 9.0 L Immature Gran % (Auto) Neut % (Auto) 81.2 H Lymph % (Auto) 11.5 L Mayes % (Auto) Mayes # (Auto) Abs Immat Gran (auto) 0.04 H Absolute Neuts (auto) 9.2 H Potassium Chloride Carbon Dioxide Anion Gap 11 L 10 L BUN 8 L Creatinine 0.45 L Random Glucose 140 H 129 H Calcium Phosphorus 2.3 L Magnesium AST ALT Alkaline Phosphatase Total Creatine Kinase Total Protein Albumin 2.9 L 2.9 L HDL Cholesterol 35 L Urine Protein Urine Blood Ur Leukocyte Esterase Urine RBC Urine WBC 04/01/25 04/02/25 04/03/25 05:32 05:30 09:14 WBC RBC Hgb Hct MCHC MPV Immature Gran % (Auto) Neut % (Auto) Lymph % (Auto) Mayes % (Auto) Mayes # (Auto) Abs Immat Gran (auto) Absolute Neuts (auto) Potassium Chloride Carbon Dioxide 30 H Anion Gap 8 L 10 L BUN Creatinine 0.48 L 0.45 L 0.49 L Random Glucose 123 H 124 H 118 H Calcium Phosphorus Magnesium AST ALT Alkaline Phosphatase Total Creatine Kinase Total Protein Albumin 3.2 L 2.8 L 3.3 L HDL Cholesterol Urine Protein Urine Blood Ur Leukocyte Esterase Urine RBC Urine WBC 04/04/25 04/05/25 04/06/25 05:57 05:49 06:00 WBC RBC Hgb Hct MCHC MPV Immature Gran % (Auto) Neut % (Auto) Lymph % (Auto) Mayes % (Auto) Mayes # (Auto) Abs Immat Gran (auto) Absolute Neuts (auto) Potassium Chloride Carbon Dioxide Anion Gap 10 L BUN Creatinine 0.48 L 0.47 L 0.49 L Random Glucose 119 H 120 H 126 H Calcium Phosphorus Magnesium AST ALT Alkaline Phosphatase Total Creatine Kinase Total Protein Albumin 3.0 L 3.2 L 3.0 L HDL Cholesterol Urine Protein Urine Blood Ur Leukocyte Esterase Urine RBC Urine WBC Microbiology: Microbiology 03/29/25 13:16 Blood - Venous Blood Culture - Final No growth after 5 days. 03/29/25 13:16 Blood - Venous Blood Culture - Final No growth after 5 days. 03/21/25 18:11 Blood - Venous Blood Culture - Final No growth after 5 days. 03/21/25 18:07 Blood - Venous Blood Culture - Final No growth after 5 days. 03/21/25 16:46 Urine clean catch - Clean Catch Midstream Urine Culture - Final Aerococcus urinae Assessment and Plan (1) Encounter for preoperative pulmonary examination: Status: Acute Plan Impression: 69-year-old lady hospitalized with catatonia planned for electroconvulsive therapy with no prior history of lung disease. Patient is recent approximately 30 pack-year smoker and may have underlying COPD, but currently has no pulmonary related symptoms. At this time patient is at low risk for pulmonary perioperative complications for the proposed electroconvulsive therapy under monitored anesthesia care. Procedures Date of Service Date of Service: 04/06/25
--- NOTE | 2025-04-06 14:32 | HO.WOUND ---
Wound Consult: Follow up 69yr old? female admitted to [facility] on 03/21/25 19:08- See progress notes and H&P for detailed history.? Wound consult placed for redness to buttock while on unit.? Patient no longer has sitter present and is nonverbal at this time. ? Re-eval today, improving, no new topical recommendations at this time, wound care will follow. ZEINA Mattress in use - Patient remains nutritionally compromised nutrition following patient appears cachectic and overall thin. She is noted to have psoriatric skin lesions on her face and arms. Sacrum / Buttock 03/31/25 Sacrum/buttock 04/01/25 04/02/25 04/03/25 04/06/25 Etiology: ?Redness Wound Bed: intact redness blanchable tissue - improved from previous assessment - irregular and not located over bony prominence, dark areas are darker in appearance but irregular in texture firm abrasion like pimples not consistent with pressure injury at this time Drainage / Odor: None Edges: ? irregular Annel wound: improving ?redness No Induration, Fluctuance or Warmth noted Goals of Treatment: ? off load pressure foam dressing applied Recommendations: 1. Turn and Reposition every 2 hours and as needed for patient comfort.? Use pillows or wedges to support off loading positions. 2. Off Load all bony prominences with use of pillows and heel boots if needed.? Apply Preventative foams where needed. ? 3. Monitor for incontinence and moisture control, use barrier creams when needed for prevention and treatment. 4. Provide adequate and supplemental nutrition.? 5. Continue low air loss mattress. 6. When applicable maintain blood glucose levels per Providers order. Buttock and Sacrum - Off Load Pressure with Q2 hr turns and use of pillows - Routine cleansing.? Apply skin prep allow to dry.? Cover with foam dressing to aid in off loading and protection from friction. Change every 3 days and PRN. Bilateral Heels? - Elevate heels off of bed surface with pillows.? Float heels off of pillows.? Apply skin prep allow to dry.? Apply heel foam dressings, peel back and assess Q shift and change every 5-7 days and PRN. Re-consult wound care Nurse for wound deterioration or wound changes.
--- NOTE | 2025-04-06 14:53 | MHC.SLORD ---
Speech Language Pathology Order Status: Pt not seen for dysphagia treatment today. Postop respiratory difficulties noted. PHYSICIST [employer] to follow up when indicated.
[2025-04-06] MEDS: 0.9 % Sodium Chloride Flush 3 ML SYRINGE IVFLUSH ×2 (15:07→21:38)
--- NOTE | 2025-04-06 15:21 | P.PNIM_ITS ---
Subjective Subjective Date of Service: 04/06/25 Interval History: catatonia Review of Systems not eating much today Does not seem and short of breath, not hypoxic, no cough Review of Systems: Yes all other systems are reviewed and are negative Physical Exam 2 Exam: Exam: awake,does not speak / conversation lungs no rales or wheezes Abd s, nd, nt, ext no edema neuro: NF Psych: catatonic Vital Signs: Vital Signs: Last Vital Signs Temp 96.8 F 04/06/25 12:00 Pulse 84 04/06/25 12:00 Resp 16 04/06/25 12:00 BP 113/72 04/06/25 12:00 Pulse Ox 93 04/06/25 12:00 O2 Del Method Room Air 04/06/25 12:00 O2 Flow Rate 3 04/03/25 15:45 BMI result Body Mass Index 25.7 Objective Data Active Medications Acetaminophen (Acetaminophen 325 Mg Tablet) 650 mg PO Q6H PRN On Hold: 03/26/25 15:06 PRN Reason: Pain, Mild 1-3,fever,headache Calcium Carbonate (Calcium Carbonate 750 Mg Tab.Chew) 750 mg PO Q4H PRN PRN Reason: Heartburn Diazepam (Diazepam 10 Mg/2 Ml Cartridge) 4 mg IVPUSH TID [facility] Last Admin: 04/06/25 15:05 Dose: 4 mg Documented By: OMAR Docusate Sodium (Docusate Sodium 100 Mg Capsule) 100 mg PO BID PRN PRN Reason: Constipation Fondaparinux (Fondaparinux Sodium 2.5 Mg/0.5 Ml Syringe) 2.5 mg SUBCUT Q24H [facility] Last Admin: 04/05/25 18:19 Dose: 2.5 mg Documented By: JEFFERY Comments: patient uncooperative at earlier time Guaifenesin (Guaifenesin 200 Mg/10 Ml 10 Ml Liquid) 10 ml PO Q4H PRN PRN Reason: Cough Last Admin: 04/01/25 12:07 Dose: 10 ml Documented By: EMANI Lactated Ringer's (Lr) 1,000 mls @ 80 mls/hr IVCONT .[id number] [facility] Last Admin: 04/06/25 13:03 Dose: Not Given Documented By: OMAR Non-Admin Reason: Physician Held Med Nutrition (Parenteral) (Parenteral Nutrition) 1,680 mls @ 70 mls/hr IV .Q24H [facility]; Protocol Stop: 04/06/25 20:59 Last Admin: 04/05/25 21:00 Dose: 70 mls/hr Documented By: ADRIENNE Nutrition (Parenteral) (Parenteral Nutrition) 1,680 mls @ 70 mls/hr IV .Q24H [facility]; Protocol Stop: 04/07/25 20:59 Loperamide HCl (Loperamide Hcl 2 Mg Capsule) 2 mg PO Q6H PRN PRN Reason: Diarrhea Magnesium Hydroxide (Milk Of Magnesia 30 Ml Oral.Susp) 30 ml PO DAILY PRN PRN Reason: Constipation Melatonin (Melatonin 3 Mg Tablet) 3 mg PO BEDTIME PRN PRN Reason: Sleep Naloxone HCl (Naloxone Hcl 0.4 Mg/Ml Vial) 0.04 mg IVPUSH Q5M PRN PRN Reason: Excessive sedation or RR < 8 Naloxone HCl (Naloxone Hcl 0.4 Mg/Ml Vial) 0.04 mg IVPUSH Q5M PRN PRN Reason: Excessive sedation or RR < 8 Olanzapine (Olanzapine 10 Mg Vial) 2.5 mg IM BID [facility] Last Admin: 04/06/25 08:38 Dose: 2.5 mg Documented By: OMAR Omeprazole (Omeprazole 20 Mg Capsule.Dr) 20 mg PO DAILY@0630 [facility] Last Admin: 04/06/25 06:07 Dose: Not Given Documented By: ADRIENNE Non-Admin Reason: Patient Refused Ondansetron HCl (Ondansetron Hcl 4 Mg/2 Ml Vial) 4 mg IVPUSH Q8H PRN PRN Reason: Nausea and Vomiting Pharmacy Consult (Consult Rx Parenteral Nutrition Ordering) 1 each MISCELLANE DAILY PRN PRN Reason: Consult order Polyethylene Glycol (Polyethylene Glycol 3350 17 Gm Powd.Pack) 17 gm PO DAILY PRN PRN Reason: Constipation Potassium Chloride (Potassium Chloride Packet 20 Meq Packet) 20 meq PO BID [facility] Last Admin: 04/06/25 11:40 Dose: Not Given Documented By: OMAR Non-Admin Reason: Patient Refused Senna (Sennosides 8.6 Mg Tablet) 17.2 mg PO BEDTIME [facility] Last Admin: 04/05/25 21:51 Dose: Not Given Documented By: ADRIENNE Non-Admin Reason: Patient Asleep Sodium Chloride (0.9 % Sodium Chloride Flush 3 Ml Syringe) 3 ml IVFLUSH QSHIFT [facility] Last Admin: 04/06/25 15:07 Dose: 3 ml Documented By: OMAR Thiamine HCl (Thiamine Hcl 100 Mg Tablet) 100 mg PO BID [facility] Last Admin: 04/06/25 10:45 Dose: Not Given Documented By: OMAR Non-Admin Reason: Patient Refused Labs 03/31/25 05:03 04/06/25 06:00 Labs: Laboratory Results - last 24 hr 04/06/25 04/06/25 06:00 06:01 Hold Purple Top SEE NOTE Anion Gap 10 L Estim Creat Clear Calc 105.6 Estimated GFR > 60 Random Glucose 126 H Estimat Average Glucose 114 Hemoglobin A1c % 5.6 Calcium 9.2 Phosphorus 3.7 Magnesium 2.3 Albumin 3.0 L Assessment and Plan (1) Bipolar 1 disorder: Status: Acute (2) Anxiety: Status: Acute (3) Bipolar 1 disorder, depressed, severe: Status: Acute Plan The patient is a 69-year-old female, currently nonverbal and unable to provide a history. She was diagnosed with a urinary tract infection in the ED, and admission has been requested. Chart review reveals a past medical history significant for recurrent UTIs, bipolar I disorder with depression, osteoarthritis, status post cardiac catheterization, anxiety, GERD, insomnia, osteopenia, and a prior DVT of the left tibial vein (no longer on anticoagulation). At [facility], she has been noncompliant with oral medications and has had poor oral nutritional intake for over one week. Urinary Tract Infection * Urine culture grew?Aerococcus urinae; sensitivities are not routinely performed. * has completed 7 days of Ceftriaxone * Consider transition to oral antibiotics if the patient is clinically stable and able to tolerate oral intake. Catatonia. The patient presented with decompensated bipolar disorder, altered mental status, and catatonia, refusing medications, food, and interventions. She has shown improvement since started benzodiazepine (Valium) IV administration. If able to tolerate oral intake, we will transition to Ativan, which is preferred as first-line therapy for catatonia. Current treatment with Valium will be continued per Psychiatry recommendations, along with other recommendation per Psych (see Psych note). Given her history of positive response, ECTX1 last week. Once medically stabilized, she will require psychiatric admission for further management--discussed with Psych team.. Minimize sedation if too somnolent. possible ect today,npo psych follow-up today :for agiatation. Hypoxia with O2 sat of 90 on room air, likely from atelectasis and sedation Xray 03/29.. atelectatis,. Incentive spirometry use when awake enough cxr: 04/03/24:Bibasilar discoid opacities/atelectasis, with improved aeration in the left lower lobe, overall improved prior. recived meropenem for 1 week. mild malnutrition, nutritional consult continue ivf for now Started PPN 03/29 HypOkalemia, corrected History of DVT left lower extremity, no longer on anticoagulation Patient can not take Lovenox d/t rash SCDs ordered, and added Arixtra GERD PPI DVT prophylaxis: SCD, Arixtra Full Code status ongoing need : Catatonia-currently on TPN and IV fluid: Monitor electrolytes, also need psych follow-up. Quality Stroke Does the patient have a stroke diagnosis?: No Reason for No Anti-thrombotic by Day Two: Drug declined by patient VTE Prior VTE?: No VTE Risk Level:: Medical - low VTE Device Contraindication: N/A - Device Ordered VTE Drug Contraindication: N/A - Med Ordered
[2025-04-06 15:57] VITALS: BP 116/72; PULSE 86; RESP 14; TEMP 36.6; O2SAT 96
[2025-04-06 20:00] VITALS: BP 138/71; PULSE 90; RESP 19; TEMP 35.8; O2SAT 92
[2025-04-06] MEDS: Parenteral Nutrition 1,680 ML 70 ML IV (21:29)
[2025-04-07] VITALS (12 sets, daily range): BP systolic 102–132; BP diastolic 66–78; PULSE 87–111; RESP 10–32; TEMP 36.2–37.2; O2SAT 91–96; BMI 25.7
[2025-04-07 06:41] LABS: Albumin Level 3.2 g/dL (3.5-5.0); Anion Gap 13 (12-20); Blood Urea Nitrogen 14 mg/dL (9-16); Calcium 9.4 mg/dL (8.4-10.2); Carbon Dioxide 24 mmol/L (22-29); Chloride 106 mmol/L (96-108); Creatinine Clr Calc Pharmacy 105.6; Estimated Glomerular Filt Rate > 60; Magnesium 2.2 mg/dL (1.6-2.6); Potassium 4.2 mmol/L (3.3-5.1); Sodium 139 mmol/L (135-145)
[2025-04-07] MEDS: 0.9 % Sodium Chloride Flush 3 ML SYRINGE IVFLUSH ×2 (09:15→21:40)
[2025-04-07] MEDS: diazePAM 10 MG/2 ML CARTRIDGE 4 MG IVPUSH ×3 (09:17→21:40)
[2025-04-07] MEDS: OLANZapine 10 MG VIAL 2.5 MG IM ×2 (09:18→21:39)
--- NOTE | 2025-04-07 09:35 | MHC.CLN ---
F/U DIET RX: NPO. PATIENT NPO WITH ECT TX SCHEDULED. USUAL DIET RX: GROUND. CONTINUES WITH PPN. SKIN WITH STAGE I PRESSURE INJURY TO BILATERAL BUTTOCKS. REVIEWED LABS. COMMUNICATED WITH PHARMACY. CONTINUE PPN AT MAX GOAL RATE OF 70 ML/HR WITH 65 G LIPIDS TO PROVIDE 1507 TOTAL KCALS (26.1 KCALS/KG CMW), 71 G PROTEIN (1.2 G/KG CMW), 168 G DEXTROSE. REPLETE LYTES NEEDED. CHECK TRIGLYCERIDES. MONITOR FOR DIET ADVANCEMENT, PO INTAKE AND PPN TOLERANCE.
--- NOTE | 2025-04-07 11:21 | MHC.CM.PN ---
Per MD rounds not medically cleared for discharge. Patient is scheduled for ECT today. DP Pending medical clearance and Psych eval to determine if pt qualifies for an IPLOC.
--- NOTE | 2025-04-07 13:53 | HO.ANESPROP2 ---
COUNTS INCLUDE 234 BEDS AT THE [facility] Active Problems Active Problems: All Active Problems (Updated 04/06/25 @ 14:16 by Gary Scott MD) Encounter for preoperative pulmonary examination (Acute) Agitated (Acute) Catatonia (Acute) Delirium due to another medical condition (Acute) Delirium (Acute) UTI (urinary tract infection) (Acute) Dehydration (Acute) Arthritis of right knee (Acute) Bipolar 1 disorder, depressed, severe (Acute) Elevated troponin (Acute) Chest discomfort (Acute) S/P cardiac catheterization (Acute) Bipolar 1 disorder (Acute) Varus deformity of knee (Acute) Osteoarthritis of left knee (Acute) Anxiety (Acute) GERD (gastroesophageal reflux disease) (Acute) Insomnia (Acute) Osteopenia (Acute) Murmur, cardiac (Acute) Status post total knee replacement, left (Acute) Acute deep vein thrombosis (DVT) of left tibial vein (Chronic) Past Medical History Medical History Delirium due to another medical condition History of skin cancer Hx of bladder problems VITO (generalized anxiety disorder) Murmur, cardiac Hx of thyroid nodule Osteopenia Hx of skin cancer, basal cell Seasonal allergies Insomnia Constipation GERD (gastroesophageal reflux disease) Anxiety History of electroconvulsive therapy Bipolar 1 disorder Cognitive capacity: not agitated but poor interaction Functional capacity: bed bound Patient : No Family History Family History Mother Basal cell carcinoma (BCC) in situ of skin Osteoporosis Hyperlipidemia Father CAD (coronary artery disease) Alcoholism Sister Osteoporosis Depression Brother Cancer of tongue Cancer of skin Family history of problems with anesthesia: No Surgical History Surgical History Hx of colonoscopy H/O elbow surgery History of back surgery History of Problems with Anesthesia: No Social History Social History Household Members: Unknown / Unable to assess Household Members Other:: brought in from [facility] Housing: Unknown / Unable to assess Are you a primary assistant child care teacher to a significant other at home: No Do you presently have visiting nurse or other home services: Yes Unable to assess alcohol history related to: Unable to respond Comment: 1-1 sitter Patient Tobacco Use Status: Tobacco use Unknown Tobacco use type: Cigarette Years Smoked: 30+, now vapes e-Cigarette/Vaping Use: Currently Using Second Hand Smoke Exposure: No Substance Use Type: Crack/Cocaine Advance Directives Date on File: 06/12/24 service: No Current occupational status: unemployed and retired 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 Sexual orientation: Straight/Heterosexual Meds Allergies Allergy/AdvReac Type Severity Reaction Status Date / Time bee pollen Allergy Severe Anaphylaxis Verified 03/21/25 14:48 levofloxacin (From Levaquin) Allergy Severe Itching Verified 03/21/25 14:48 enoxaparin (From Lovenox) Allergy Intermediate Rash Verified 03/21/25 14:48 Seasonal Allergies Allergy Mild Runny Nose Verified 03/21/25 14:48 venlafaxine (From Effexor) Allergy Mild Constipatio Verified 03/21/25 14:48 n Penicillins Allergy Unknown Unknown Verified 03/21/25 14:48 Active Medications: Current Medications Acetaminophen (Acetaminophen 325 Mg Tablet) 650 mg PO Q6H PRN On Hold: 03/26/25 15:06 PRN Reason: Pain, Mild 1-3,fever,headache Calcium Carbonate (Calcium Carbonate 750 Mg Tab.Chew) 750 mg PO Q4H PRN PRN Reason: Heartburn Diazepam (Diazepam 10 Mg/2 Ml Cartridge) 4 mg IVPUSH TID [facility] Last Admin: 04/07/25 09:17 Dose: 4 mg Docusate Sodium (Docusate Sodium 100 Mg Capsule) 100 mg PO BID PRN PRN Reason: Constipation Fondaparinux (Fondaparinux Sodium 2.5 Mg/0.5 Ml Syringe) 2.5 mg SUBCUT Q24H [facility] Last Admin: 04/06/25 16:27 Dose: 2.5 mg Guaifenesin (Guaifenesin 200 Mg/10 Ml 10 Ml Liquid) 10 ml PO Q4H PRN PRN Reason: Cough Last Admin: 04/01/25 12:07 Dose: 10 ml Lactated Ringer's (Lr) 1,000 mls @ 80 mls/hr IVCONT .[id number] [facility] Last Admin: 04/06/25 23:06 Dose: Not Given Nutrition (Parenteral) (Parenteral Nutrition) 1,680 mls @ 70 mls/hr IV .Q24H [facility]; Protocol Stop: 04/07/25 20:59 Last Admin: 04/06/25 21:29 Dose: 70 mls/hr Nutrition (Parenteral) (Parenteral Nutrition) 1,680 mls @ 70 mls/hr IV .Q24H [facility]; Protocol Stop: 04/08/25 20:59 Loperamide HCl (Loperamide Hcl 2 Mg Capsule) 2 mg PO Q6H PRN PRN Reason: Diarrhea Magnesium Hydroxide (Milk Of Magnesia 30 Ml Oral.Susp) 30 ml PO DAILY PRN PRN Reason: Constipation Melatonin (Melatonin 3 Mg Tablet) 3 mg PO BEDTIME PRN PRN Reason: Sleep Naloxone HCl (Naloxone Hcl 0.4 Mg/Ml Vial) 0.04 mg IVPUSH Q5M PRN PRN Reason: Excessive sedation or RR < 8 Naloxone HCl (Naloxone Hcl 0.4 Mg/Ml Vial) 0.04 mg IVPUSH Q5M PRN PRN Reason: Excessive sedation or RR < 8 Olanzapine (Olanzapine 10 Mg Vial) 2.5 mg IM BID [facility] Last Admin: 04/07/25 09:18 Dose: 2.5 mg Omeprazole (Omeprazole 20 Mg Capsule.Dr) 20 mg PO DAILY@0630 [facility] Last Admin: 04/07/25 07:02 Dose: Not Given Ondansetron HCl (Ondansetron Hcl 4 Mg/2 Ml Vial) 4 mg IVPUSH Q8H PRN PRN Reason: Nausea and Vomiting Pharmacy Consult (Consult Rx Parenteral Nutrition Ordering) 1 each MISCELLANE DAILY PRN PRN Reason: Consult order Polyethylene Glycol (Polyethylene Glycol 3350 17 Gm Powd.Pack) 17 gm PO DAILY PRN PRN Reason: Constipation Potassium Chloride (Potassium Chloride Packet 20 Meq Packet) 20 meq PO BID [facility] Last Admin: 04/07/25 09:20 Dose: Not Given Senna (Sennosides 8.6 Mg Tablet) 17.2 mg PO BEDTIME [facility] Last Admin: 04/06/25 21:39 Dose: Not Given Sodium Chloride (0.9 % Sodium Chloride Flush 3 Ml Syringe) 3 ml IVFLUSH QSHIFT [facility] Last Admin: 04/07/25 09:15 Dose: 3 ml Thiamine HCl (Thiamine Hcl 100 Mg Tablet) 100 mg PO BID [facility] Last Admin: 04/07/25 09:20 Dose: Not Given Home Medications ?Medication ?Instructions ?Recorded ?Confirmed ?Last Taken ?Type benztropine 0.5 mg tablet 0.5 mg PO Q12H 03/22/25 03/22/25 Unknown History docusate sodium 100 mg capsule 1 cap PO BID PRN Constipation 03/22/25 03/22/25 Unknown History hydroxyzine HCl 25 mg tablet 50 mg PO Q4H PRN Anxiety 03/22/25 03/22/25 Unknown History ibuprofen 400 mg tablet 400 mg PO Q8H PRN Pain 03/22/25 03/22/25 Unknown History loperamide 2 mg tablet 2 mg PO Q6H PRN Diarrhea 03/22/25 03/22/25 Unknown History lorazepam 0.5 mg tablet 0.5 mg PO TID 03/22/25 03/22/25 Unknown History melatonin 3 mg tablet 3 mg PO BEDTIME PRN Sleep 03/22/25 03/22/25 Unknown History mirtazapine 15 mg tablet 15 mg PO BEDTIME 03/22/25 03/22/25 Unknown History nitrofurantoin 100 mg PO BID 03/22/25 03/22/25 Unknown History monohydrate/macrocrystals 100 mg capsule (Macrobid) ondansetron HCl 4 mg tablet 4 mg PO Q6H PRN Nausea And Vomiting 03/22/25 03/22/25 Unknown History pantoprazole 40 mg tablet,delayed 40 mg PO DAILY@0630 03/22/25 03/22/25 Unknown History release quetiapine 400 mg tablet 400 mg PO BEDTIME 03/22/25 03/22/25 Unknown History quetiapine 50 mg tablet 50 mg PO BID 03/22/25 03/22/25 Unknown History Exam Exam Date and Time: 04/07/2025 Height,Weight and Vital Signs: Height 5 ft 4 in Weight 68 kg Last Vital Signs Temp 98.0 F 04/07/25 13:26 Pulse 94 04/07/25 13:26 Resp 32 H 04/07/25 13:26 BP 113/77 04/07/25 13:26 Pulse Ox 91 L 04/07/25 13:26 O2 Del Method Room Air 04/07/25 13:26 O2 Flow Rate 3 04/03/25 15:45 Pertinent Lab Results Pertinent Lab Results: Laboratory Tests 03/21/25 03/21/25 03/22/25 15:09 16:46 04:12 WBC 11.3 H 7.6 RBC 4.28 3.70 L Hgb 13.2 11.2 L Hct 36.9 L 32.5 L MCV 86.2 87.8 MCH 30.8 30.3 MCHC 35.8 H 34.5 RDW 13.5 13.4 Plt Count 269 234 MPV 9.3 L 9.2 L Immature Gran % (Auto) 0.8 H 0.9 H Neut % (Auto) 77.8 H 67.9 Lymph % (Auto) 11.0 L 17.5 L [place] % (Auto) 10.2 12.4 H Eos % (Auto) 0.0 0.9 Baso % (Auto) 0.2 0.4 Lymph # (Auto) 1.3 1.3 [place] # (Auto) 1.2 0.9 Eos # (Auto) 0.0 0.1 Baso # (Auto) 0.0 0.0 Abs Immat Gran (auto) 0.09 H 0.07 H Absolute Neuts (auto) 8.8 H 5.2 Absolute Nucleated RBC 0.000 0.000 Nucleated RBC % (auto) 0.0 0.0 Hold Purple Top Sodium 136 140 Potassium 4.3 D 2.9 L* D Chloride 104 108 Carbon Dioxide 20 L 22 Anion Gap 16 13 BUN 46 H 25 H Creatinine 1.23 0.62 Estim Creat Clear Calc 42.0 83.4 Estimated GFR 44 > 60 Random Glucose 111 121 H Estimat Average Glucose Hemoglobin A1c % Lactic Acid Calcium 9.9 8.3 L D Phosphorus Magnesium 2.3 Total Bilirubin 0.6 0.6 AST 107 H 80 H ALT 38 H 28 Alkaline Phosphatase 113 88 Ammonia 16 Total Creatine Kinase NT-Pro-B Natriuret Pep Total Protein 7.3 5.7 L Albumin 4.3 3.4 L Triglycerides Cholesterol LDL Cholesterol, Calc HDL Cholesterol Urine Color Yellow Urine Appearance Cloudy Urine pH 5.5 Ur Specific [place] 1.020 Urine Protein 30 (1+) H Urine Glucose (UA) Negative Urine Ketones 15 Urine Blood Small (1+) H Urine Nitrite Negative Ur Leukocyte Esterase Small (1+) H Urine RBC 3-5 H Urine WBC 11-20 H Ur Squamous Epith Cells 0-2 Urine Bacteria 4+ Hyaline Casts 3-5 Urine Opiates Screen Not Detected Ur Buprenorphine Scrn Not Detected Ur Oxycodone Screen Not Detected Urine Methadone Screen Not Detected Urine Fentanyl Screen Not Detected Ur Barbiturates Screen Not Detected Ur Phencyclidine Scrn Not Detected Ur Amphetamines Screen Not Detected U Benzodiazepines Scrn Not Detected Urine Cocaine Screen Not Detected U Marijuana (THC) Screen Not Detected 03/22/25 03/23/25 03/23/25 13:30 05:44 11:28 WBC RBC Hgb Hct MCV MCH MCHC RDW Plt Count MPV Immature Gran % (Auto) Neut % (Auto) Lymph % (Auto) [place] % (Auto) Eos % (Auto) Baso % (Auto) Lymph # (Auto) [place] # (Auto) Eos # (Auto) Baso # (Auto) Abs Immat Gran (auto) Absolute Neuts (auto) Absolute Nucleated RBC Nucleated RBC % (auto) Hold Purple Top SEE NOTE Sodium 139 Potassium 3.1 L 2.7 L* 4.3 D Chloride 109 H Carbon Dioxide 25 Anion Gap 8 L BUN 6 L Creatinine 0.48 L Estim Creat Clear Calc 107.8 Estimated GFR > 60 Random Glucose 134 H Estimat Average Glucose Hemoglobin A1c % Lactic Acid Calcium 8.0 L Phosphorus Magnesium 1.5 L Total Bilirubin AST ALT Alkaline Phosphatase Ammonia Total Creatine Kinase NT-Pro-B Natriuret Pep Total Protein Albumin Triglycerides Cholesterol LDL Cholesterol, Calc HDL Cholesterol Urine Color Urine Appearance Urine pH Ur Specific [place] Urine Protein Urine Glucose (UA) Urine Ketones Urine Blood Urine Nitrite Ur Leukocyte Esterase Urine RBC Urine WBC Ur Squamous Epith Cells Urine Bacteria Hyaline Casts Urine Opiates Screen Ur Buprenorphine Scrn Ur Oxycodone Screen Urine Methadone Screen Urine Fentanyl Screen Ur Barbiturates Screen Ur Phencyclidine Scrn Ur Amphetamines Screen U Benzodiazepines Scrn Urine Cocaine Screen U Marijuana (THC) Screen 03/23/25 03/24/25 03/25/25 17:01 05:12 05:36 WBC RBC Hgb Hct MCV MCH MCHC RDW Plt Count MPV Immature Gran % (Auto) Neut % (Auto) Lymph % (Auto) [place] % (Auto) Eos % (Auto) Baso % (Auto) Lymph # (Auto) [place] # (Auto) Eos # (Auto) Baso # (Auto) Abs Immat Gran (auto) Absolute Neuts (auto) Absolute Nucleated RBC Nucleated RBC % (auto) Hold Purple Top SEE NOTE Sodium 140 141 137 Potassium 3.3 D 3.5 4.0 Chloride 110 H 110 H 105 Carbon Dioxide 24 25 22 Anion Gap 9 L 10 L 14 BUN 3 L 4 L Creatinine 0.49 L 0.54 Estim Creat Clear Calc 105.6 95.8 Estimated GFR > 60 > 60 Random Glucose 122 H 135 H Estimat Average Glucose Hemoglobin A1c % Lactic Acid Calcium 8.1 L 9.5 D Phosphorus Magnesium Total Bilirubin AST ALT Alkaline Phosphatase Ammonia Total Creatine Kinase NT-Pro-B Natriuret Pep Total Protein Albumin Triglycerides Cholesterol LDL Cholesterol, Calc HDL Cholesterol Urine Color Urine Appearance Urine pH Ur Specific [place] Urine Protein Urine Glucose (UA) Urine Ketones Urine Blood Urine Nitrite Ur Leukocyte Esterase Urine RBC Urine WBC Ur Squamous Epith Cells Urine Bacteria Hyaline Casts Urine Opiates Screen Ur Buprenorphine Scrn Ur Oxycodone Screen Urine Methadone Screen Urine Fentanyl Screen Ur Barbiturates Screen Ur Phencyclidine Scrn Ur Amphetamines Screen U Benzodiazepines Scrn Urine Cocaine Screen U Marijuana (THC) Screen 03/26/25 03/27/25 03/28/25 16:26 09:19 09:17 WBC 14.6 H 11.7 H 9.9 RBC 4.63 D 4.29 3.78 L Hgb 14.0 D 13.0 11.6 L Hct 41.0 D 37.1 33.4 L MCV 88.6 86.5 88.4 MCH 30.2 30.3 30.7 MCHC 34.1 35.0 34.7 RDW 13.8 13.7 13.9 Plt Count 268 255 228 MPV 8.5 L 8.4 L 8.4 L Immature Gran % (Auto) 0.8 H Neut % (Auto) 77.9 H Lymph % (Auto) 11.4 L [place] % (Auto) 9.4 Eos % (Auto) 0.1 Baso % (Auto) 0.4 Lymph # (Auto) 1.7 [place] # (Auto) 1.4 H Eos # (Auto) 0.0 Baso # (Auto) 0.1 Abs Immat Gran (auto) 0.11 H Absolute Neuts (auto) 11.4 H Absolute Nucleated RBC 0.000 0.000 0.000 Nucleated RBC % (auto) 0.0 0.0 0.0 Hold Purple Top Sodium 137 140 143 Potassium 4.3 3.8 3.7 Chloride 103 104 109 H Carbon Dioxide 19 L 22 23 Anion Gap 19 18 15 BUN 12 8 L 9 Creatinine 0.57 0.50 0.54 Estim Creat Clear Calc 90.7 103.4 95.8 Estimated GFR > 60 > 60 > 60 Random Glucose 89 79 82 Estimat Average Glucose Hemoglobin A1c % Lactic Acid Calcium 9.4 9.1 8.5 D Phosphorus Magnesium Total Bilirubin 0.4 AST 36 H ALT 24 Alkaline Phosphatase 119 H Ammonia Total Creatine Kinase 325 H NT-Pro-B Natriuret Pep Total Protein 6.8 Albumin 3.7 Triglycerides Cholesterol LDL Cholesterol, Calc HDL Cholesterol Urine Color Urine Appearance Urine pH Ur Specific [place] Urine Protein Urine Glucose (UA) Urine Ketones Urine Blood Urine Nitrite Ur Leukocyte Esterase Urine RBC Urine WBC Ur Squamous Epith Cells Urine Bacteria Hyaline Casts Urine Opiates Screen Ur Buprenorphine Scrn Ur Oxycodone Screen Urine Methadone Screen Urine Fentanyl Screen Ur Barbiturates Screen Ur Phencyclidine Scrn Ur Amphetamines Screen U Benzodiazepines Scrn Urine Cocaine Screen U Marijuana (THC) Screen 03/29/25 03/29/25 03/30/25 13:16 13:17 06:07 WBC 11.0 H RBC 3.98 L Hgb 12.2 Hct 35.1 L MCV 88.2 MCH 30.7 MCHC 34.8 RDW 13.8 Plt Count 224 MPV 8.5 L Immature Gran % (Auto) Neut % (Auto) Lymph % (Auto) [place] % (Auto) Eos % (Auto) Baso % (Auto) Lymph # (Auto) [place] # (Auto) Eos # (Auto) Baso # (Auto) Abs Immat Gran (auto) Absolute Neuts (auto) Absolute Nucleated RBC 0.000 Nucleated RBC % (auto) 0.0 Hold Purple Top SEE NOTE Sodium 138 140 Potassium 3.4 3.3 Chloride 103 104 Carbon Dioxide 26 28 Anion Gap 12 11 L BUN 4 L 8 L Creatinine 0.46 L 0.52 Estim Creat Clear Calc 112.5 99.5 Estimated GFR > 60 > 60 Random Glucose 156 H 140 H Estimat Average Glucose Hemoglobin A1c % Lactic Acid 1.2 Calcium 8.5 9.0 Phosphorus 2.7 Magnesium 1.6 Total Bilirubin AST ALT Alkaline Phosphatase Ammonia Total Creatine Kinase NT-Pro-B Natriuret Pep Total Protein Albumin 2.9 L Triglycerides 72 Cholesterol 132 LDL Cholesterol, Calc 83 HDL Cholesterol 35 L Urine Color Urine Appearance Urine pH Ur Specific [place] Urine Protein Urine Glucose (UA) Urine Ketones Urine Blood Urine Nitrite Ur Leukocyte Esterase Urine RBC Urine WBC Ur Squamous Epith Cells Urine Bacteria Hyaline Casts Urine Opiates Screen Ur Buprenorphine Scrn Ur Oxycodone Screen Urine Methadone Screen Urine Fentanyl Screen Ur Barbiturates Screen Ur Phencyclidine Scrn Ur Amphetamines Screen U Benzodiazepines Scrn Urine Cocaine Screen U Marijuana (THC) Screen 03/30/25 03/31/25 04/01/25 10:57 05:03 05:32 WBC 11.3 H RBC 3.58 L Hgb 10.9 L Hct 32.2 L MCV 89.9 MCH 30.4 MCHC 33.9 RDW 13.8 Plt Count 209 MPV 9.0 L Immature Gran % (Auto) 0.4 Neut % (Auto) 81.2 H Lymph % (Auto) 11.5 L [place] % (Auto) 6.3 Eos % (Auto) 0.3 Baso % (Auto) 0.3 Lymph # (Auto) 1.3 [place] # (Auto) 0.7 Eos # (Auto) 0.0 Baso # (Auto) 0.0 Abs Immat Gran (auto) 0.04 H Absolute Neuts (auto) 9.2 H Absolute Nucleated RBC 0.000 Nucleated RBC % (auto) 0.0 Hold Purple Top SEE NOTE SEE NOTE Sodium 139 139 Potassium 4.3 D 4.4 Chloride 105 104 Carbon Dioxide 28 25 Anion Gap 10 L 14 BUN 9 11 Creatinine 0.45 L 0.48 L Estim Creat Clear Calc 114.9 107.8 Estimated GFR > 60 > 60 Random Glucose 129 H 123 H Estimat Average Glucose Hemoglobin A1c % Lactic Acid 1.2 Calcium 9.1 9.5 Phosphorus 2.3 L 2.8 Magnesium 2.0 2.3 Total Bilirubin AST ALT Alkaline Phosphatase Ammonia Total Creatine Kinase NT-Pro-B Natriuret Pep 86.7 Total Protein Albumin 2.9 L 3.2 L Triglycerides Cholesterol LDL Cholesterol, Calc HDL Cholesterol Urine Color Urine Appearance Urine pH Ur Specific [place] Urine Protein Urine Glucose (UA) Urine Ketones Urine Blood Urine Nitrite Ur Leukocyte Esterase Urine RBC Urine WBC Ur Squamous Epith Cells Urine Bacteria Hyaline Casts Urine Opiates Screen Ur Buprenorphine Scrn Ur Oxycodone Screen Urine Methadone Screen Urine Fentanyl Screen Ur Barbiturates Screen Ur Phencyclidine Scrn Ur Amphetamines Screen U Benzodiazepines Scrn Urine Cocaine Screen U Marijuana (THC) Screen 04/02/25 04/03/25 04/04/25 05:30 09:14 05:57 WBC RBC Hgb Hct MCV MCH MCHC RDW Plt Count MPV Immature Gran % (Auto) Neut % (Auto) Lymph % (Auto) [place] % (Auto) Eos % (Auto) Baso % (Auto) Lymph # (Auto) [place] # (Auto) Eos # (Auto) Baso # (Auto) Abs Immat Gran (auto) Absolute Neuts (auto) Absolute Nucleated RBC Nucleated RBC % (auto) Hold Purple Top SEE NOTE Sodium 139 138 138 Potassium 4.3 4.3 4.2 Chloride 105 104 103 Carbon Dioxide 30 H 28 26 Anion Gap 8 L 10 L 13 BUN 10 12 15 Creatinine 0.45 L 0.49 L 0.48 L Estim Creat Clear Calc 114.9 105.6 107.8 Estimated GFR > 60 > 60 > 60 Random Glucose 124 H 118 H 119 H Estimat Average Glucose Hemoglobin A1c % Lactic Acid Calcium 9.1 9.7 D 9.4 Phosphorus 3.3 3.2 2.9 Magnesium 2.4 2.4 2.3 Total Bilirubin AST ALT Alkaline Phosphatase Ammonia Total Creatine Kinase NT-Pro-B Natriuret Pep Total Protein Albumin 2.8 L 3.3 L 3.0 L Triglycerides Cholesterol LDL Cholesterol, Calc HDL Cholesterol Urine Color Urine Appearance Urine pH Ur Specific [place] Urine Protein Urine Glucose (UA) Urine Ketones Urine Blood Urine Nitrite Ur Leukocyte Esterase Urine RBC Urine WBC Ur Squamous Epith Cells Urine Bacteria Hyaline Casts Urine Opiates Screen Ur Buprenorphine Scrn Ur Oxycodone Screen Urine Methadone Screen Urine Fentanyl Screen Ur Barbiturates Screen Ur Phencyclidine Scrn Ur Amphetamines Screen U Benzodiazepines Scrn Urine Cocaine Screen U Marijuana (THC) Screen 04/05/25 04/06/25 04/06/25 05:49 06:00 06:01 WBC RBC Hgb Hct MCV MCH MCHC RDW Plt Count MPV Immature Gran % (Auto) Neut % (Auto) Lymph % (Auto) [place] % (Auto) Eos % (Auto) Baso % (Auto) Lymph # (Auto) [place] # (Auto) Eos # (Auto) Baso # (Auto) Abs Immat Gran (auto) Absolute Neuts (auto) Absolute Nucleated RBC Nucleated RBC % (auto) Hold Purple Top SEE NOTE Sodium 138 138 Potassium 4.2 4.2 Chloride 105 105 Carbon Dioxide 25 27 Anion Gap 12 10 L BUN 12 14 Creatinine 0.47 L 0.49 L Estim Creat Clear Calc 110.1 105.6 Estimated GFR > 60 > 60 Random Glucose 120 H 126 H Estimat Average Glucose 114 Hemoglobin A1c % 5.6 Lactic Acid Calcium 9.4 9.2 Phosphorus 3.4 3.7 Magnesium 2.2 2.3 Total Bilirubin AST ALT Alkaline Phosphatase Ammonia Total Creatine Kinase NT-Pro-B Natriuret Pep Total Protein Albumin 3.2 L 3.0 L Triglycerides Cholesterol LDL Cholesterol, Calc HDL Cholesterol Urine Color Urine Appearance Urine pH Ur Specific [place] Urine Protein Urine Glucose (UA) Urine Ketones Urine Blood Urine Nitrite Ur Leukocyte Esterase Urine RBC Urine WBC Ur Squamous Epith Cells Urine Bacteria Hyaline Casts Urine Opiates Screen Ur Buprenorphine Scrn Ur Oxycodone Screen Urine Methadone Screen Urine Fentanyl Screen Ur Barbiturates Screen Ur Phencyclidine Scrn Ur Amphetamines Screen U Benzodiazepines Scrn Urine Cocaine Screen U Marijuana (THC) Screen 04/07/25 05:32 WBC RBC Hgb Hct MCV MCH MCHC RDW Plt Count MPV Immature Gran % (Auto) Neut % (Auto) Lymph % (Auto) [place] % (Auto) Eos % (Auto) Baso % (Auto) Lymph # (Auto) [place] # (Auto) Eos # (Auto) Baso # (Auto) Abs Immat Gran (auto) Absolute Neuts (auto) Absolute Nucleated RBC Nucleated RBC % (auto) Hold Purple Top Sodium 139 Potassium 4.2 Chloride 106 Carbon Dioxide 24 Anion Gap 13 BUN 14 Creatinine 0.49 L Estim Creat Clear Calc 105.6 Estimated GFR > 60 Random Glucose 124 H Estimat Average Glucose Hemoglobin A1c % Lactic Acid Calcium 9.4 Phosphorus 4.1 Magnesium 2.2 Total Bilirubin AST ALT Alkaline Phosphatase Ammonia Total Creatine Kinase NT-Pro-B Natriuret Pep Total Protein Albumin 3.2 L Triglycerides Cholesterol LDL Cholesterol, Calc HDL Cholesterol Urine Color Urine Appearance Urine pH Ur Specific [place] Urine Protein Urine Glucose (UA) Urine Ketones Urine Blood Urine Nitrite Ur Leukocyte Esterase Urine RBC Urine WBC Ur Squamous Epith Cells Urine Bacteria Hyaline Casts Urine Opiates Screen Ur Buprenorphine Scrn Ur Oxycodone Screen Urine Methadone Screen Urine Fentanyl Screen Ur Barbiturates Screen Ur Phencyclidine Scrn Ur Amphetamines Screen U Benzodiazepines Scrn Urine Cocaine Screen U Marijuana (THC) Screen Airway Mallampati Class: Patient Non-Cooperative TM Dist: >3cm Neck ROM: Full Denture: Upper Loose/Missing/Broken Teeth: Yes Heart: rrr Lungs: diminished with poor effort Assessment and Plan Assessment Anesthesia Assessment: Chart Reviewed Final Anesthetic Review Family History of Problems with Anesthesia: No History of Problems with Anesthesia: No NPO: Yes ASA Class: III Final Preanesthetic Review: No Changes in Pt Med Stat and Consent Obtained/Reviewed Patient Risk: Low Procedure Risk: Low Anesthetic Plan Anesthetic Plan: GA (plan is for lma post-seizure due to atelectasis following most recent treatment) Disposition: Standard PACU
--- NOTE | 2025-04-07 13:58 | P.PNIM_ITS ---
Subjective Subjective Date of Service: 04/07/25 Interval History: catatonia Review of Systems going for ECT today. Otherwise awake no new symptoms Review of Systems: Yes all other systems are reviewed and are negative Physical Exam 2 Exam: Exam: awake,does not speak / conversation lungs no rales or wheezes Abd s, nd, nt, ext no edema neuro: NF Psych: catatonic Vital Signs: Vital Signs: Last Vital Signs Temp 98.0 F 04/07/25 13:26 Pulse 94 04/07/25 13:26 Resp 32 H 04/07/25 13:26 BP 113/77 04/07/25 13:26 Pulse Ox 91 L 04/07/25 13:26 O2 Del Method Room Air 04/07/25 13:26 O2 Flow Rate 3 04/03/25 15:45 BMI result Body Mass Index 25.7 Objective Data Active Medications Acetaminophen (Acetaminophen 325 Mg Tablet) 650 mg PO Q6H PRN On Hold: 03/26/25 15:06 PRN Reason: Pain, Mild 1-3,fever,headache Albuterol Sulfate (Albuterol Sulfate (0.083%) 2.5 Mg/3 Ml Vial.Neb) 2.5 mg INHALE PREOP ONE Stop: 04/07/25 13:58 Calcium Carbonate (Calcium Carbonate 750 Mg Tab.Chew) 750 mg PO Q4H PRN PRN Reason: Heartburn Diazepam (Diazepam 10 Mg/2 Ml Cartridge) 4 mg IVPUSH TID [facility] Last Admin: 04/07/25 09:17 Dose: 4 mg Documented By: OMAR Docusate Sodium (Docusate Sodium 100 Mg Capsule) 100 mg PO BID PRN PRN Reason: Constipation Fondaparinux (Fondaparinux Sodium 2.5 Mg/0.5 Ml Syringe) 2.5 mg SUBCUT Q24H [facility] Last Admin: 04/06/25 16:27 Dose: 2.5 mg Documented By: OMAR Guaifenesin (Guaifenesin 200 Mg/10 Ml 10 Ml Liquid) 10 ml PO Q4H PRN PRN Reason: Cough Last Admin: 04/01/25 12:07 Dose: 10 ml Documented By: EMANI Lactated Ringer's (Lr) 1,000 mls @ 80 mls/hr IVCONT .[id number] [facility] Last Admin: 04/06/25 23:06 Dose: Not Given Documented By: MARIAN Non-Admin Reason: Physician Held Med Nutrition (Parenteral) (Parenteral Nutrition) 1,680 mls @ 70 mls/hr IV .Q24H [facility]; Protocol Stop: 04/07/25 20:59 Last Admin: 04/06/25 21:29 Dose: 70 mls/hr Documented By: MARIAN Nutrition (Parenteral) (Parenteral Nutrition) 1,680 mls @ 70 mls/hr IV .Q24H [facility]; Protocol Stop: 04/08/25 20:59 Loperamide HCl (Loperamide Hcl 2 Mg Capsule) 2 mg PO Q6H PRN PRN Reason: Diarrhea Magnesium Hydroxide (Milk Of Magnesia 30 Ml Oral.Susp) 30 ml PO DAILY PRN PRN Reason: Constipation Melatonin (Melatonin 3 Mg Tablet) 3 mg PO BEDTIME PRN PRN Reason: Sleep Naloxone HCl (Naloxone Hcl 0.4 Mg/Ml Vial) 0.04 mg IVPUSH Q5M PRN PRN Reason: Excessive sedation or RR < 8 Naloxone HCl (Naloxone Hcl 0.4 Mg/Ml Vial) 0.04 mg IVPUSH Q5M PRN PRN Reason: Excessive sedation or RR < 8 Olanzapine (Olanzapine 10 Mg Vial) 2.5 mg IM BID [facility] Last Admin: 04/07/25 09:18 Dose: 2.5 mg Documented By: OMAR Omeprazole (Omeprazole 20 Mg Capsule.) 20 mg PO DAILY@0630 [facility] Last Admin: 04/07/25 07:02 Dose: Not Given Documented By: MARIAN Non-Admin Reason: Patient Refused Ondansetron HCl (Ondansetron Hcl 4 Mg/2 Ml Vial) 4 mg IVPUSH Q8H PRN PRN Reason: Nausea and Vomiting Pharmacy Consult (Consult Rx Parenteral Nutrition Ordering) 1 each MISCELLANE DAILY PRN PRN Reason: Consult order Polyethylene Glycol (Polyethylene Glycol 3350 17 Gm Powd.Pack) 17 gm PO DAILY PRN PRN Reason: Constipation Potassium Chloride (Potassium Chloride Packet 20 Meq Packet) 20 meq PO BID [facility] Last Admin: 04/07/25 09:20 Dose: Not Given Documented By: OMAR Non-Admin Reason: Patient Refused Senna (Sennosides 8.6 Mg Tablet) 17.2 mg PO BEDTIME [facility] Last Admin: 04/06/25 21:39 Dose: Not Given Documented By: MARIAN Non-Admin Reason: Patient Refused Sodium Chloride (0.9 % Sodium Chloride Flush 3 Ml Syringe) 3 ml IVFLUSH QSHIFT [facility] Last Admin: 04/07/25 09:15 Dose: 3 ml Documented By: OMAR Thiamine HCl (Thiamine Hcl 100 Mg Tablet) 100 mg PO BID [facility] Last Admin: 04/07/25 09:20 Dose: Not Given Documented By: OMAR Non-Admin Reason: Patient Refused Labs 03/31/25 05:03 04/07/25 05:32 Labs: Laboratory Results - last 24 hr 04/07/25 05:32 Anion Gap 13 Estim Creat Clear Calc 105.6 Estimated GFR > 60 Random Glucose 124 H Calcium 9.4 Phosphorus 4.1 Magnesium 2.2 Albumin 3.2 L Assessment and Plan (1) Bipolar 1 disorder: Status: Acute (2) Anxiety: Status: Acute (3) Bipolar 1 disorder, depressed, severe: Status: Acute Plan The patient is a 69-year-old female, currently nonverbal and unable to provide a history. She was diagnosed with a urinary tract infection in the ED, and admission has been requested. Chart review reveals a past medical history significant for recurrent UTIs, bipolar I disorder with depression, osteoarthritis, status post cardiac catheterization, anxiety, GERD, insomnia, osteopenia, and a prior DVT of the left tibial vein (no longer on anticoagulation). At [facility], she has been noncompliant with oral medications and has had poor oral nutritional intake for over one week. Urinary Tract Infection * Urine culture grew?Aerococcus urinae; sensitivities are not routinely performed. * has completed 7 days of Ceftriaxone * Consider transition to oral antibiotics if the patient is clinically stable and able to tolerate oral intake. Catatonia. The patient presented with decompensated bipolar disorder, altered mental status, and catatonia, refusing medications, food, and interventions. She has shown improvement since started benzodiazepine (Valium) IV administration. If able to tolerate oral intake, we will transition to Ativan, which is preferred as first-line therapy for catatonia. Current treatment with Valium will be continued per Psychiatry recommendations, along with other recommendation per Psych (see Psych note). Given her history of positive response, ECTX1 last week. Once medically stabilized, she will require psychiatric admission for further management--discussed with Psych team. catatonia : possible ect today,npo psych follow-up Hypoxia with O2 sat of 90 on room air, likely from atelectasis and sedation Xray 03/29.. atelectatis,. Incentive spirometry use when awake enough cxr: 04/03/24:Bibasilar discoid opacities/atelectasis, with improved aeration in the left lower lobe, overall improved prior. recived meropenem for 1 week. mild malnutrition, nutritional consult continue ivf for now Started PPN 03/29 HypOkalemia, corrected History of DVT left lower extremity, no longer on anticoagulation Patient can not take Lovenox d/t rash SCDs ordered, and added Arixtra GERD PPI DVT prophylaxis: SCD, Arixtra Full Code status ongoing need : Catatonia-currently on TPN and IV fluid: Monitor electrolytes, also need psych follow-up. Quality Stroke Does the patient have a stroke diagnosis?: No Reason for No Anti-thrombotic by Day Two: Drug declined by patient VTE Prior VTE?: No VTE Risk Level:: Medical - low VTE Device Contraindication: N/A - Device Ordered VTE Drug Contraindication: N/A - Med Ordered
--- NOTE | 2025-04-07 14:13 | P.HPSUR_ITS ---
Pre-Procedural Eval Section A - 24 Hr Update-Section A only Date of Service: 04/07/25 The patient is an INPATIENT: Yes Changes since office visit: No Cold of Flu in the past 2 weeks, No New Medical Problems, No Changes in Medication and No Patient answered all questions The patient has been examined within 24 hours of the surgical procedure. The History & Physical has been completed within 30 days and I have reviewed it.: Yes Section B - Complete if H&P > 30 days Chief Complaint: Pulmonary periprocedural risk assessment Details of Present Illness: remains with catatonia, though did answer some ques tions Allergies: Allergies Allergy/AdvReac Type Severity Reaction Status Date / Time bee pollen Allergy Severe Anaphylaxis Verified 03/21/25 14:48 levofloxacin (From Levaquin) Allergy Severe Itching Verified 03/21/25 14:48 enoxaparin (From Lovenox) Allergy Intermediate Rash Verified 03/21/25 14:48 Seasonal Allergies Allergy Mild Runny Nose Verified 03/21/25 14:48 venlafaxine (From Effexor) Allergy Mild Constipatio Verified 03/21/25 14:48 n Penicillins Allergy Unknown Unknown Verified 03/21/25 14:48 Plan Diagnosis/Plan: Unchanged I have reviewed the history and physical and performed a pertinent physical examination on my patient. No changes have occurred unless specified. Time Spent With Patient Time: Total time managing care of this patient today ____ minutes.
--- NOTE | 2025-04-07 14:14 | HO.ECTPROC ---
ECT Procedure Note Diagnosis/Treatment Date of Service: 04/07/25 Diagnosis: Catatonia Previous ECT Date: 04/05/25 Current Treatment Number: 3 Treatment: Series Interval Clinical Notes: remains catatonic but did answer some questions today. Time: Total time managing care of this patient today ____ minutes. ECT Settings Device: THYMATRON DGx Electrode Placement: Bifrontal Program/Pulse Width: 0.50 Energy Percent: 100 Seizure Duration By EEG (in seconds): 45 By Motor Observation (in seconds): 21 Medications Administration General Anesthetic: Etomidate (12) Muscle Relaxant: Succinylcholine (100) Ancillary Medications Miscillaneous Medications: Flumazenil Airway Management Airway Management: LMA (post) and Bag Mask Ventilation (pre) Treatment Recommendations No Changes Recommended: No change Electrode Placement: Bifrontal Program/Pulse Width: 0.50 Energy Percent: 100 Notes: pt treated with bifrontal with good seizure response Continue tx plan Pt Tolerated Procedure w/o Issue: Yes
--- NOTE | 2025-04-07 17:50 | MHC.SLORD ---
Speech Language Pathology Order Status: Patient not seen today by [employer] SAL[employer] REPRESENTATIVE secondary to patient caseload demand, [employer] SAL[employer] REPRESENTATIVE will continue to follow.
[2025-04-07] MEDS: Parenteral Nutrition 1,680 ML 70 ML IV (22:02)
[2025-04-08] VITALS (14 sets, daily range): BP systolic 100–171; BP diastolic 57–102; PULSE 77–115; RESP 16–24; TEMP 36.4–37.4; O2SAT 93–100
[2025-04-08 06:04] LABS: Triglycerides 103 mg/dL (<150)
[2025-04-08 06:11] LABS: Albumin Level 3.3 g/dL (3.5-5.0); Anion Gap 14 (12-20); Blood Urea Nitrogen 19 mg/dL (9-16); Calcium 9.4 mg/dL (8.4-10.2); Carbon Dioxide 24 mmol/L (22-29); Chloride 105 mmol/L (96-108); Creatinine Clr Calc Pharmacy 99.5; Estimated Glomerular Filt Rate > 60; Magnesium 2.2 mg/dL (1.6-2.6); Potassium 4.1 mmol/L (3.3-5.1); Sodium 139 mmol/L (135-145)
--- NOTE | 2025-04-08 06:46 | PC.NURSE ---
Patient disconnected from PPN, as she is off unit for a procedure.
[2025-04-08] MEDS: Lactated Ringers 1,000 ML 50 ML IVCONT (06:55)
--- NOTE | 2025-04-08 06:56 | P.CONAN_ITS ---
[facility] Active Problems Active Problems: All Active Problems Encounter for preoperative pulmonary examination (Acute) Agitated (Acute) Catatonia (Acute) Delirium due to another medical condition (Acute) Delirium (Acute) UTI (urinary tract infection) (Acute) Dehydration (Acute) Arthritis of right knee (Acute) Bipolar 1 disorder, depressed, severe (Acute) Elevated troponin (Acute) Chest discomfort (Acute) S/P cardiac catheterization (Acute) Bipolar 1 disorder (Acute) Varus deformity of knee (Acute) Osteoarthritis of left knee (Acute) Anxiety (Acute) GERD (gastroesophageal reflux disease) (Acute) Insomnia (Acute) Osteopenia (Acute) Murmur, cardiac (Acute) Status post total knee replacement, left (Acute) Acute deep vein thrombosis (DVT) of left tibial vein (Chronic) Past Medical History Medical History Delirium due to another medical condition History of skin cancer Hx of bladder problems VITO (generalized anxiety disorder) Murmur, cardiac Hx of thyroid nodule Osteopenia Hx of skin cancer, basal cell Seasonal allergies Insomnia Constipation GERD (gastroesophageal reflux disease) Anxiety History of electroconvulsive therapy Bipolar 1 disorder Functional capacity: bed bound Family History Family History Mother Basal cell carcinoma (BCC) in situ of skin Osteoporosis Hyperlipidemia Father CAD (coronary artery disease) Alcoholism Sister Osteoporosis Depression Brother Cancer of tongue Cancer of skin Family history of problems with anesthesia: No Surgical History Surgical History Hx of colonoscopy H/O elbow surgery History of back surgery History of Problems with Anesthesia: No Social History Social History Household Members: Unknown / Unable to assess Household Members Other:: brought in [facility] Housing: Unknown / Unable to assess Are you a primary overnight caregiver to a significant other at home: No Do you presently have visiting nurse or other home services: Yes Unable to assess alcohol history related to: Unable to respond Comment: 1-1 sitter Patient Tobacco Use Status: Tobacco use Unknown Tobacco use type: Cigarette Years Smoked: 30+, now vapes e-Cigarette/Vaping Use: Currently Using Second Hand Smoke Exposure: No Substance Use Type: Crack/Cocaine Advance Directives Date on File: 06/12/24 service: No Current occupational status: unemployed and retired 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 Sexual orientation: Straight/Heterosexual Meds Allergies Allergy/AdvReac Type Severity Reaction Status Date / Time bee pollen Allergy Severe Anaphylaxis Verified 03/21/25 14:48 levofloxacin (From Levaquin) Allergy Severe Itching Verified 03/21/25 14:48 enoxaparin (From Lovenox) Allergy Intermediate Rash Verified 03/21/25 14:48 Seasonal Allergies Allergy Mild Runny Nose Verified 03/21/25 14:48 venlafaxine (From Effexor) Allergy Mild Constipatio Verified 03/21/25 14:48 n Penicillins Allergy Unknown Unknown Verified 03/21/25 14:48 Active Medications: Current Medications Acetaminophen (Acetaminophen 325 Mg Tablet) 650 mg PO Q6H PRN PRN Reason: Pain, Mild 1-3,fever,headache Calcium Carbonate (Calcium Carbonate 750 Mg Tab.Chew) 750 mg PO Q4H PRN PRN Reason: Heartburn Diazepam (Diazepam 10 Mg/2 Ml Cartridge) 4 mg IVPUSH TID [facility] Last Admin: 04/07/25 21:40 Dose: 4 mg Docusate Sodium (Docusate Sodium 100 Mg Capsule) 100 mg PO BID PRN PRN Reason: Constipation Fondaparinux (Fondaparinux Sodium 2.5 Mg/0.5 Ml Syringe) 2.5 mg SUBCUT Q24H [facility] Last Admin: 04/07/25 17:42 Dose: 2.5 mg Guaifenesin (Guaifenesin 200 Mg/10 Ml 10 Ml Liquid) 10 ml PO Q4H PRN PRN Reason: Cough Last Admin: 04/01/25 12:07 Dose: 10 ml Lactated Ringer's (Lr) 1,000 mls @ 80 mls/hr IVCONT .[id number] [facility] Last Admin: 04/08/25 01:00 Dose: Not Given Nutrition (Parenteral) (Parenteral Nutrition) 1,680 mls @ 70 mls/hr IV .Q24H [facility]; Protocol Stop: 04/08/25 20:59 Last Infusion: 04/08/25 06:45 Dose: 0 mls/hr Lactated Ringer's (Lr) 1,000 mls @ 50 mls/hr IVCONT .Q20H [facility] Last Admin: 04/08/25 06:55 Dose: 50 mls/hr Loperamide HCl (Loperamide Hcl 2 Mg Capsule) 2 mg PO Q6H PRN PRN Reason: Diarrhea Magnesium Hydroxide (Milk Of Magnesia 30 Ml Oral.Susp) 30 ml PO DAILY PRN PRN Reason: Constipation Melatonin (Melatonin 3 Mg Tablet) 3 mg PO BEDTIME PRN PRN Reason: Sleep Naloxone HCl (Naloxone Hcl 0.4 Mg/Ml Vial) 0.04 mg IVPUSH Q5M PRN PRN Reason: Excessive sedation or RR < 8 Naloxone HCl (Naloxone Hcl 0.4 Mg/Ml Vial) 0.04 mg IVPUSH Q5M PRN PRN Reason: Excessive sedation or RR < 8 Naloxone HCl (Naloxone Hcl 0.4 Mg/Ml Vial) 0.04 mg IVPUSH Q5M PRN PRN Reason: Excessive sedation or RR < 8 Olanzapine (Olanzapine 10 Mg Vial) 2.5 mg IM BID [facility] Last Admin: 04/07/25 21:39 Dose: 2.5 mg Omeprazole (Omeprazole 20 Mg Capsule.Dr) 20 mg PO DAILY@0630 [facility] Last Admin: 04/08/25 05:41 Dose: Not Given Ondansetron HCl (Ondansetron Hcl 4 Mg/2 Ml Vial) 4 mg IVPUSH Q8H PRN PRN Reason: Nausea and Vomiting Pharmacy Consult (Consult Rx Parenteral Nutrition Ordering) 1 each MISCELLANE DAILY PRN PRN Reason: Consult order Polyethylene Glycol (Polyethylene Glycol 3350 17 Gm Powd.Pack) 17 gm PO DAILY PRN PRN Reason: Constipation Potassium Chloride (Potassium Chloride Packet 20 Meq Packet) 20 meq PO BID [facility] Last Admin: 04/07/25 21:49 Dose: Not Given Senna (Sennosides 8.6 Mg Tablet) 17.2 mg PO BEDTIME [facility] Last Admin: 04/07/25 22:03 Dose: Not Given Sodium Chloride (0.9 % Sodium Chloride Flush 3 Ml Syringe) 3 ml IVFLUSH QSHIFT [facility] Last Admin: 04/07/25 21:40 Dose: 3 ml Thiamine HCl (Thiamine Hcl 100 Mg Tablet) 100 mg PO BID [facility] Last Admin: 04/07/25 21:50 Dose: Not Given Home Medications ?Medication ?Instructions ?Recorded ?Confirmed ?Last Taken ?Type benztropine 0.5 mg tablet 0.5 mg PO Q12H 03/22/2503/03 Unknown History docusate sodium 100 mg capsule 1 cap PO BID PRN Consti pation 03/22/25 03/22/25 Unknown History hydroxyzine HCl 25 mg tablet 50 mg PO Q4H PRN Anxiety 03/22/25 03/22/25 Unknown History ibuprofen 400 mg tablet 400 mg PO Q8H PRN Pain 03/2203/22/25 Unknown History loperamide 2 mg tablet 2 mg PO Q6H PRN Diarrhea 03/22/25 Unknown History lorazepam 0.5 mg tablet 0.5 mg PO TID 03/22/2503/22 Unknown History melatonin 3 mg tablet 3 mg PO BEDTIME PRN Sleep 03/22/25 Unknown History mirtazapine 15 mg tablet 15 mg PO BEDTIME 03/22/25 Unknown History nitrofurantoin 100 mg PO BID 03/22/2503/22 Unknown History monohydrate/macrocrystals 100 mg capsule (Macrobid) ondansetron HCl 4 mg tablet 4 mg PO Q6H PRN Nausea And Vomiting 03/22/25 03/22/25 Unknown History pantoprazole 40 mg tablet,delayed 40 mg PO DAILY@0630 03/22/25 03/22/25 Unknown History release quetiapine 400 mg tablet 400 mg PO BEDTIME 03/22/25 0 03/22/25 Unknown History quetiapine 50 mg tablet 50 mg PO BID 03/22/25 Unknown History Exam Height,Weight and Vital Signs: Height 5 ft 4 in Weight 68 kg Last Vital Signs Temp 98.1 F 04/08/25 06:45 Pulse 86 04/08/25 06:45 Resp 24 H 04/08/25 06:45 BP 100/57 L 04/08/25 06:45 Pulse Ox 96 04/08/25 06:45 O2 Del Method Room Air 04/08/25 06:45 O2 Flow Rate 2 04/07/25 14:43 Pertinent Lab Results Pertinent Lab Results: Laboratory Tests 03/21/25 03/21/25 03/22/25 15:09 16:46 04:12 WBC 11.3 H 7.6 RBC 4.28 3.70 L Hgb 13.2 11.2 L Hct 36.9 L 32.5 L MCV 86.2 87.8 MCH 30.8 30.3 MCHC 35.8 H 34.5 RDW 13.5 13.4 Plt Count 269 234 MPV 9.3 L 9.2 L Immature Gran % (Auto) 0.8 H 0.9 H Neut % (Auto) 77.8 H 67.9 Lymph % (Auto) 11.0 L 17.5 L [place] % (Auto) 10.2 12.4 H Eos % (Auto) 0.0 0.9 Baso % (Auto) 0.2 0.4 Lymph # (Auto) 1.3 1.3 [place] # (Auto) 1.2 0.9 Eos # (Auto) 0.0 0.1 Baso # (Auto) 0.0 0.0 Abs Immat Gran (auto) 0.09 H 0.07 H Absolute Neuts (auto) 8.8 H 5.2 Absolute Nucleated RBC 0.000 0.000 Nucleated RBC % (auto) 0.0 0.0 Hold Purple Top Sodium 136 140 Potassium 4.3 D 2.9 L* D Chloride 104 108 Carbon Dioxide 20 L 22 Anion Gap 16 13 BUN 46 H 25 H Creatinine 1.23 0.62 Estim Creat Clear Calc 42.0 83.4 Estimated GFR 44 > 60 Random Glucose 111 121 H Estimat Average Glucose Hemoglobin A1c % Lactic Acid Calcium 9.9 8.3 L D Phosphorus Magnesium 2.3 Total Bilirubin 0.6 0.6 AST 107 H 80 H ALT 38 H 28 Alkaline Phosphatase 113 88 Ammonia 16 Total Creatine Kinase NT-Pro-B Natriuret Pep Total Protein 7.3 5.7 L Albumin 4.3 3.4 L Triglycerides Cholesterol LDL Cholesterol, Calc HDL Cholesterol Urine Color Yellow Urine Appearance Cloudy Urine pH 5.5 Ur Specific [place] 1.020 Urine Protein 30 (1+) H Urine Glucose (UA) Negative Urine Ketones 15 Urine Blood Small (1+) H Urine Nitrite Negative Ur Leukocyte Esterase Small (1+) H Urine RBC 3-5 H Urine WBC 11-20 H Ur Squamous Epith Cells 0-2 Urine Bacteria 4+ Hyaline Casts 3-5 Urine Opiates Screen Not Detected Ur Buprenorphine Scrn Not Detected Ur Oxycodone Screen Not Detected Urine Methadone Screen Not Detected Urine Fentanyl Screen Not Detected Ur Barbiturates Screen Not Detected Ur Phencyclidine Scrn Not Detected Ur Amphetamines Screen Not Detected U Benzodiazepines Scrn Not Detected Urine Cocaine Screen Not Detected U Marijuana (THC) Screen Not Detected 03/22/25 03/23/25 03/23/25 13:30 05:44 11:28 WBC RBC Hgb Hct MCV MCH MCHC RDW Plt Count MPV Immature Gran % (Auto) Neut % (Auto) Lymph % (Auto) [place] % (Auto) Eos % (Auto) Baso % (Auto) Lymph # (Auto) [place] # (Auto) Eos # (Auto) Baso # (Auto) Abs Immat Gran (auto) Absolute Neuts (auto) Absolute Nucleated RBC Nucleated RBC % (auto) Hold Purple Top SEE NOTE Sodium 139 Potassium 3.1 L 2.7 L* 4.3 D Chloride 109 H Carbon Dioxide 25 Anion Gap 8 L BUN 6 L Creatinine 0.48 L Estim Creat Clear Calc 107.8 Estimated GFR > 60 Random Glucose 134 H Estimat Average Glucose Hemoglobin A1c % Lactic Acid Calcium 8.0 L Phosphorus Magnesium 1.5 L Total Bilirubin AST ALT Alkaline Phosphatase Ammonia Total Creatine Kinase NT-Pro-B Natriuret Pep Total Protein Albumin Triglycerides Cholesterol LDL Cholesterol, Calc HDL Cholesterol Urine Color Urine Appearance Urine pH Ur Specific [place] Urine Protein Urine Glucose (UA) Urine Ketones Urine Blood Urine Nitrite Ur Leukocyte Esterase Urine RBC Urine WBC Ur Squamous Epith Cells Urine Bacteria Hyaline Casts Urine Opiates Screen Ur Buprenorphine Scrn Ur Oxycodone Screen Urine Methadone Screen Urine Fentanyl Screen Ur Barbiturates Screen Ur Phencyclidine Scrn Ur Amphetamines Screen U Benzodiazepines Scrn Urine Cocaine Screen U Marijuana (THC) Screen 03/23/25 03/24/25 03/25/25 17:01 05:12 05:36 WBC RBC Hgb Hct MCV MCH MCHC RDW Plt Count MPV Immature Gran % (Auto) Neut % (Auto) Lymph % (Auto) [place] % (Auto) Eos % (Auto) Baso % (Auto) Lymph # (Auto) [place] # (Auto) Eos # (Auto) Baso # (Auto) Abs Immat Gran (auto) Absolute Neuts (auto) Absolute Nucleated RBC Nucleated RBC % (auto) Hold Purple Top SEE NOTE Sodium 140 141 137 Potassium 3.3 D 3.5 4.0 Chloride 110 H 110 H 105 Carbon Dioxide 24 25 22 Anion Gap 9 L 10 L 14 BUN 3 L 4 L Creatinine 0.49 L 0.54 Estim Creat Clear Calc 105.6 95.8 Estimated GFR > 60 > 60 Random Glucose 122 H 135 H Estimat Average Glucose Hemoglobin A1c % Lactic Acid Calcium 8.1 L 9.5 D Phosphorus Magnesium Total Bilirubin AST ALT Alkaline Phosphatase Ammonia Total Creatine Kinase NT-Pro-B Natriuret Pep Total Protein Albumin Triglycerides Cholesterol LDL Cholesterol, Calc HDL Cholesterol Urine Color Urine Appearance Urine pH Ur Specific [place] Urine Protein Urine Glucose (UA) Urine Ketones Urine Blood Urine Nitrite Ur Leukocyte Esterase Urine RBC Urine WBC Ur Squamous Epith Cells Urine Bacteria Hyaline Casts Urine Opiates Screen Ur Buprenorphine Scrn Ur Oxycodone Screen Urine Methadone Screen Urine Fentanyl Screen Ur Barbiturates Screen Ur Phencyclidine Scrn Ur Amphetamines Screen U Benzodiazepines Scrn Urine Cocaine Screen U Marijuana (THC) Screen 03/26/25 03/27/25 03/28/25 16:26 09:19 09:17 WBC 14.6 H 11.7 H 9.9 RBC 4.63 D 4.29 3.78 L Hgb 14.0 D 13.0 11.6 L Hct 41.0 D 37.1 33.4 L MCV 88.6 86.5 88.4 MCH 30.2 30.3 30.7 MCHC 34.1 35.0 34.7 RDW 13.8 13.7 13.9 Plt Count 268 255 228 MPV 8.5 L 8.4 L 8.4 L Immature Gran % (Auto) 0.8 H Neut % (Auto) 77.9 H Lymph % (Auto) 11.4 L [place] % (Auto) 9.4 Eos % (Auto) 0.1 Baso % (Auto) 0.4 Lymph # (Auto) 1.7 [place] # (Auto) 1.4 H Eos # (Auto) 0.0 Baso # (Auto) 0.1 Abs Immat Gran (auto) 0.11 H Absolute Neuts (auto) 11.4 H Absolute Nucleated RBC 0.000 0.000 0.000 Nucleated RBC % (auto) 0.0 0.0 0.0 Hold Purple Top Sodium 137 140 143 Potassium 4.3 3.8 3.7 Chloride 103 104 109 H Carbon Dioxide 19 L 22 23 Anion Gap 19 18 15 BUN 12 8 L 9 Creatinine 0.57 0.50 0.54 Estim Creat Clear Calc 90.7 103.4 95.8 Estimated GFR > 60 > 60 > 60 Random Glucose 89 79 82 Estimat Average Glucose Hemoglobin A1c % Lactic Acid Calcium 9.4 9.1 8.5 D Phosphorus Magnesium Total Bilirubin 0.4 AST 36 H ALT 24 Alkaline Phosphatase 119 H Ammonia Total Creatine Kinase 325 H NT-Pro-B Natriuret Pep Total Protein 6.8 Albumin 3.7 Triglycerides Cholesterol LDL Cholesterol, Calc HDL Cholesterol Urine Color Urine Appearance Urine pH Ur Specific [place] Urine Protein Urine Glucose (UA) Urine Ketones Urine Blood Urine Nitrite Ur Leukocyte Esterase Urine RBC Urine WBC Ur Squamous Epith Cells Urine Bacteria Hyaline Casts Urine Opiates Screen Ur Buprenorphine Scrn Ur Oxycodone Screen Urine Methadone Screen Urine Fentanyl Screen Ur Barbiturates Screen Ur Phencyclidine Scrn Ur Amphetamines Screen U Benzodiazepines Scrn Urine Cocaine Screen U Marijuana (THC) Screen 03/29/25 03/29/25 03/30/25 13:16 13:17 06:07 WBC 11.0 H RBC 3.98 L Hgb 12.2 Hct 35.1 L MCV 88.2 MCH 30.7 MCHC 34.8 RDW 13.8 Plt Count 224 MPV 8.5 L Immature Gran % (Auto) Neut % (Auto) Lymph % (Auto) [place] % (Auto) Eos % (Auto) Baso % (Auto) Lymph # (Auto) [place] # (Auto) Eos # (Auto) Baso # (Auto) Abs Immat Gran (auto) Absolute Neuts (auto) Absolute Nucleated RBC 0.000 Nucleated RBC % (auto) 0.0 Hold Purple Top SEE NOTE Sodium 138 140 Potassium 3.4 3.3 Chloride 103 104 Carbon Dioxide 26 28 Anion Gap 12 11 L BUN 4 L 8 L Creatinine 0.46 L 0.52 Estim Creat Clear Calc 112.5 99.5 Estimated GFR > 60 > 60 Random Glucose 156 H 140 H Estimat Average Glucose Hemoglobin A1c % Lactic Acid 1.2 Calcium 8.5 9.0 Phosphorus 2.7 Magnesium 1.6 Total Bilirubin AST ALT Alkaline Phosphatase Ammonia Total Creatine Kinase NT-Pro-B Natriuret Pep Total Protein Albumin 2.9 L Triglycerides 72 Cholesterol 132 LDL Cholesterol, Calc 83 HDL Cholesterol 35 L Urine Color Urine Appearance Urine pH Ur Specific [place] Urine Protein Urine Glucose (UA) Urine Ketones Urine Blood Urine Nitrite Ur Leukocyte Esterase Urine RBC Urine WBC Ur Squamous Epith Cells Urine Bacteria Hyaline Casts Urine Opiates Screen Ur Buprenorphine Scrn Ur Oxycodone Screen Urine Methadone Screen Urine Fentanyl Screen Ur Barbiturates Screen Ur Phencyclidine Scrn Ur Amphetamines Screen U Benzodiazepines Scrn Urine Cocaine Screen U Marijuana (THC) Screen 03/30/25 03/31/25 04/01/25 10:57 05:03 05:32 WBC 11.3 H RBC 3.58 L Hgb 10.9 L Hct 32.2 L MCV 89.9 MCH 30.4 MCHC 33.9 RDW 13.8 Plt Count 209 MPV 9.0 L Immature Gran % (Auto) 0.4 Neut % (Auto) 81.2 H Lymph % (Auto) 11.5 L [place] % (Auto) 6.3 Eos % (Auto) 0.3 Baso % (Auto) 0.3 Lymph # (Auto) 1.3 [place] # (Auto) 0.7 Eos # (Auto) 0.0 Baso # (Auto) 0.0 Abs Immat Gran (auto) 0.04 H Absolute Neuts (auto) 9.2 H Absolute Nucleated RBC 0.000 Nucleated RBC % (auto) 0.0 Hold Purple Top SEE NOTE SEE NOTE Sodium 139 139 Potassium 4.3 D 4.4 Chloride 105 104 Carbon Dioxide 28 25 Anion Gap 10 L 14 BUN 9 11 Creatinine 0.45 L 0.48 L Estim Creat Clear Calc 114.9 107.8 Estimated GFR > 60 > 60 Random Glucose 129 H 123 H Estimat Average Glucose Hemoglobin A1c % Lactic Acid 1.2 Calcium 9.1 9.5 Phosphorus 2.3 L 2.8 Magnesium 2.0 2.3 Total Bilirubin AST ALT Alkaline Phosphatase Ammonia Total Creatine Kinase NT-Pro-B Natriuret Pep 86.7 Total Protein Albumin 2.9 L 3.2 L Triglycerides Cholesterol LDL Cholesterol, Calc HDL Cholesterol Urine Color Urine Appearance Urine pH Ur Specific [place] Urine Protein Urine Glucose (UA) Urine Ketones Urine Blood Urine Nitrite Ur Leukocyte Esterase Urine RBC Urine WBC Ur Squamous Epith Cells Urine Bacteria Hyaline Casts Urine Opiates Screen Ur Buprenorphine Scrn Ur Oxycodone Screen Urine Methadone Screen Urine Fentanyl Screen Ur Barbiturates Screen Ur Phencyclidine Scrn Ur Amphetamines Screen U Benzodiazepines Scrn Urine Cocaine Screen U Marijuana (THC) Screen 04/02/25 04/03/25 04/04/25 05:30 09:14 05:57 WBC RBC Hgb Hct MCV MCH MCHC RDW Plt Count MPV Immature Gran % (Auto) Neut % (Auto) Lymph % (Auto) [place] % (Auto) Eos % (Auto) Baso % (Auto) Lymph # (Auto) [place] # (Auto) Eos # (Auto) Baso # (Auto) Abs Immat Gran (auto) Absolute Neuts (auto) Absolute Nucleated RBC Nucleated RBC % (auto) Hold Purple Top SEE NOTE Sodium 139 138 138 Potassium 4.3 4.3 4.2 Chloride 105 104 103 Carbon Dioxide 30 H 28 26 Anion Gap 8 L 10 L 13 BUN 10 12 15 Creatinine 0.45 L 0.49 L 0.48 L Estim Creat Clear Calc 114.9 105.6 107.8 Estimated GFR > 60 > 60 > 60 Random Glucose 124 H 118 H 119 H Estimat Average Glucose Hemoglobin A1c % Lactic Acid Calcium 9.1 9.7 D 9.4 Phosphorus 3.3 3.2 2.9 Magnesium 2.4 2.4 2.3 Total Bilirubin AST ALT Alkaline Phosphatase Ammonia Total Creatine Kinase NT-Pro-B Natriuret Pep Total Protein Albumin 2.8 L 3.3 L 3.0 L Triglycerides Cholesterol LDL Cholesterol, Calc HDL Cholesterol Urine Color Urine Appearance Urine pH Ur Specific [place] Urine Protein Urine Glucose (UA) Urine Ketones Urine Blood Urine Nitrite Ur Leukocyte Esterase Urine RBC Urine WBC Ur Squamous Epith Cells Urine Bacteria Hyaline Casts Urine Opiates Screen Ur Buprenorphine Scrn Ur Oxycodone Screen Urine Methadone Screen Urine Fentanyl Screen Ur Barbiturates Screen Ur Phencyclidine Scrn Ur Amphetamines Screen U Benzodiazepines Scrn Urine Cocaine Screen U Marijuana (THC) Screen 04/05/25 04/06/25 04/06/25 05:49 06:00 06:01 WBC RBC Hgb Hct MCV MCH MCHC RDW Plt Count MPV Immature Gran % (Auto) Neut % (Auto) Lymph % (Auto) [place] % (Auto) Eos % (Auto) Baso % (Auto) Lymph # (Auto) [place] # (Auto) Eos # (Auto) Baso # (Auto) Abs Immat Gran (auto) Absolute Neuts (auto) Absolute Nucleated RBC Nucleated RBC % (auto) Hold Purple Top SEE NOTE Sodium 138 138 Potassium 4.2 4.2 Chloride 105 105 Carbon Dioxide 25 27 Anion Gap 12 10 L BUN 12 14 Creatinine 0.47 L 0.49 L Estim Creat Clear Calc 110.1 105.6 Estimated GFR > 60 > 60 Random Glucose 120 H 126 H Estimat Average Glucose 114 Hemoglobin A1c % 5.6 Lactic Acid Calcium 9.4 9.2 Phosphorus 3.4 3.7 Magnesium 2.2 2.3 Total Bilirubin AST ALT Alkaline Phosphatase Ammonia Total Creatine Kinase NT-Pro-B Natriuret Pep Total Protein Albumin 3.2 L 3.0 L Triglycerides Cholesterol LDL Cholesterol, Calc HDL Cholesterol Urine Color Urine Appearance Urine pH Ur Specific [place] Urine Protein Urine Glucose (UA) Urine Ketones Urine Blood Urine Nitrite Ur Leukocyte Esterase Urine RBC Urine WBC Ur Squamous Epith Cells Urine Bacteria Hyaline Casts Urine Opiates Screen Ur Buprenorphine Scrn Ur Oxycodone Screen Urine Methadone Screen Urine Fentanyl Screen Ur Barbiturates Screen Ur Phencyclidine Scrn Ur Amphetamines Screen U Benzodiazepines Scrn Urine Cocaine Screen U Marijuana (THC) Screen 04/07/25 04/08/25 05:32 05:31 WBC RBC Hgb Hct MCV MCH MCHC RDW Plt Count MPV Immature Gran % (Auto) Neut % (Auto) Lymph % (Auto) [place] % (Auto) Eos % (Auto) Baso % (Auto) Lymph # (Auto) [place] # (Auto) Eos # (Auto) Baso # (Auto) Abs Immat Gran (auto) Absolute Neuts (auto) Absolute Nucleated RBC Nucleated RBC % (auto) Hold Purple Top SEE NOTE Sodium 139 139 Potassium 4.2 4.1 Chloride 106 105 Carbon Dioxide 24 24 Anion Gap 13 14 BUN 14 19 H Creatinine 0.49 L 0.52 Estim Creat Clear Calc 105.6 99.5 Estimated GFR > 60 > 60 Random Glucose 124 H 118 H Estimat Average Glucose Hemoglobin A1c % Lactic Acid Calcium 9.4 9.4 Phosphorus 4.1 3.5 Magnesium 2.2 2.2 Total Bilirubin AST ALT Alkaline Phosphatase Ammonia Total Creatine Kinase NT-Pro-B Natriuret Pep Total Protein Albumin 3.2 L 3.3 L Triglycerides 103 Cholesterol LDL Cholesterol, Calc HDL Cholesterol Urine Color Urine Appearance Urine pH Ur Specific [place] Urine Protein Urine Glucose (UA) Urine Ketones Urine Blood Urine Nitrite Ur Leukocyte Esterase Urine RBC Urine WBC Ur Squamous Epith Cells Urine Bacteria Hyaline Casts Urine Opiates Screen Ur Buprenorphine Scrn Ur Oxycodone Screen Urine Methadone Screen Urine Fentanyl Screen Ur Barbiturates Screen Ur Phencyclidine Scrn Ur Amphetamines Screen U Benzodiazepines Scrn Urine Cocaine Screen U Marijuana (THC) Screen Airway Mallampati Class: II TM Dist: >3cm Neck ROM: Full Heart: rrr Lungs: poor effort, clear at top Assessment and Plan Assessment Anesthesia Assessment: Anesthesia Plan Discussed and Chart Reviewed Final Anesthetic Review Family History of Problems with Anesthesia: No History of Problems with Anesthesia: No NPO: Yes ASA Class: III Final Preanesthetic Review: No Changes in Pt Med Stat, Meds/Allgs Chart Reviewed and Consent Obtained/Reviewed Patient Risk: Intermediate Procedure Risk: Intermediate Anesthetic Plan Anesthetic Plan: GA Disposition: Standard PACU
--- NOTE | 2025-04-08 07:42 | MHC.SHP ---
Pre-Procedural Eval Section A - 24 Hr Update-Section A only Date of Service: 04/08/25 Changes since office visit: Yes New Medical Problems and Yes Changes in Medication; No Cold of Flu in the past 2 weeks and No Patient answered all questions The patient has been examined within 24 hours of the surgical procedure. The History & Physical has been completed within 30 days and I have reviewed it.: Yes Section B - Complete if H&P > 30 days Chief Complaint: Pulmonary periprocedural risk assessment Allergies: Allergies Allergy/AdvReac Type Severity Reaction Status Date / Time bee pollen Allergy Severe Anaphylaxis Verified 03/21/25 14:48 levofloxacin (From Levaquin) Allergy Severe Itching Verified 03/21/25 14:48 enoxaparin (From Lovenox) Allergy Intermediate Rash Verified 03/21/25 14:48 Seasonal Allergies Allergy Mild Runny Nose Verified 03/21/25 14:48 venlafaxine (From Effexor) Allergy Mild Constipatio Verified 03/21/25 14:48 n Penicillins Allergy Unknown Unknown Verified 03/21/25 14:48 Plan I have reviewed the history and physical and performed a pertinent physical examination on my patient. No changes have occurred unless specified. Time Spent With Patient Time: Total time managing care of this patient today ____ minutes.
--- NOTE | 2025-04-08 08:02 | HO.ECTPROC ---
ECT Procedure Note Diagnosis/Treatment Date of Service: 04/08/25 Diagnosis: Bipolar disorder and Catatonia Previous ECT Date: 04/07/25 Current Treatment Number: 4 Treatment: Series Interval Clinical Notes: Preoperatively was generally nonverbal minimal speech after ECT showed a broader range of affect tolerated ECT without any respiratory issues did not need LMA. Case was discussed with patient's sister her healthcare proxy. Also discussed with Dr. Manzanares patient will need to be able to eat and drink in hopefully be off TPN before transferred to psychiatric unit and also we should start to mobilize her physically has not been ambulating. This can be started on the medical floor Patient has had some cognitive impairment in the past with ECT some memory difficulty once out of catatonia and more stable might benefit from unilateral treatment . Patient treated bifrontally without difficulty tolerated treatment Time: Total time managing care of this patient today _35___ minutes. ECT Settings Device: THYMATRON DGx Electrode Placement: Bifrontal Program/Pulse Width: 0.50 Energy Percent: 100 Seizure Duration By EEG (in seconds): 46 Medications Administration General Anesthetic: Etomidate (12) Muscle Relaxant: Succinylcholine (100) Ancillary Medications Miscillaneous Medications: Flumazenil Airway Management Airway Management: Bag Mask Ventilation (pre) Treatment Recommendations No Changes Recommended: No change Electrode Placement: Bifrontal Program/Pulse Width: 0.50 Energy Percent: 100 Notes: pt treated with bifrontal with good seizure response Continue tx plan would change to unilateral when clinically possible and out of catatonia because of past cognitive concerns Pt Tolerated Procedure w/o Issue: Yes
--- NOTE | 2025-04-08 09:55 | MHC.CLN ---
Addendum entered by Angelica Cam, DAVY 04/08/25 14:49: DIET CONSISTENCY CHANGED TO GROUND. Original Note: F/U DIET RX: REGULAR PER PROVIDER. NPO WHEN ECT TX SCHEDULED. CONTINUES WITH PPN DUE TO USUALLY POOR PO INTAKE. SKIN WITH STAGE I PRESSURE INJURY TO BILATERAL BUTTOCKS. REVIEWED LABS. COMMUNICATED WITH PHARMACY. CONTINUE PPN AT MAX GOAL RATE OF 70 ML/HR WITH 65 G LIPIDS TO PROVIDE 1507 TOTAL KCALS (26.1 KCALS/KG CMW), 71 G PROTEIN (1.2 G/KG CMW), 168 G DEXTROSE. REPLETE LYTES NEEDED. CHECK TRIGLYCERIDES. MONITOR FOR PO INTAKE AND PPN TOLERANCE.
[2025-04-08] MEDS: OLANZapine 10 MG VIAL 2.5 MG IM ×2 (10:27→22:23)
[2025-04-08] MEDS: diazePAM 10 MG/2 ML CARTRIDGE 4 MG IVPUSH ×2 (10:28→22:22)
--- NOTE | 2025-04-08 10:28 | MHC.SLORD ---
Speech Language Pathology Order Status: RD communicated with DCS ENGINEER 'regular diet per MD', DCS ENGINEER adjusted order to reflect NDD2 with thinsimeon, attending MD notified. Pt not seen for dysphagia tx as pt made NPO after midnight. DCS ENGINEER continues to follow.
[2025-04-08] MEDS: Potassium Chloride Packet 20 MEQ PACKET PO (10:29)
--- NOTE | 2025-04-08 10:48 | P.PNIM_ITS ---
Subjective Subjective Date of Service: 04/08/25 Interval History: talking, no complaints Physical Exam 2 Exam: Exam: General: AO X 2, no acute distress Resp: CTA bilateral, no accessory muscles used CVS: S1,S2,RRR GI: soft, non tender, non distended Neuro: motor grossly intact, alert Vital Signs: Vital Signs: Last Vital Signs Temp 98 F 04/08/25 09:35 Pulse 98 04/08/25 09:35 Resp 16 04/08/25 09:35 BP 125/65 04/08/25 09:35 Pulse Ox 96 04/08/25 09:35 O2 Del Method Room Air 04/08/25 08:45 O2 Flow Rate 3 04/08/25 08:08 BMI result Body Mass Index 25.7 Objective Data Active Medications Acetaminophen (Acetaminophen 325 Mg Tablet) 650 mg PO Q6H PRN PRN Reason: Pain, Mild 1-3,fever,headache Calcium Carbonate (Calcium Carbonate 750 Mg Tab.Chew) 750 mg PO Q4H PRN PRN Reason: Heartburn Diazepam (Diazepam 10 Mg/2 Ml Cartridge) 4 mg IVPUSH TID [facility] Last Admin: 04/08/25 10:28 Dose: 4 mg Documented By: RUBEN Docusate Sodium (Docusate Sodium 100 Mg Capsule) 100 mg PO BID PRN PRN Reason: Constipation Fondaparinux (Fondaparinux Sodium 2.5 Mg/0.5 Ml Syringe) 2.5 mg SUBCUT Q24H [facility] Last Admin: 04/07/25 17:42 Dose: 2.5 mg Documented By: OMAR Guaifenesin (Guaifenesin 200 Mg/10 Ml 10 Ml Liquid) 10 ml PO Q4H PRN PRN Reason: Cough Last Admin: 04/01/25 12:07 Dose: 10 ml Documented By: EMANI Nutrition (Parenteral) (Parenteral Nutrition) 1,680 mls @ 70 mls/hr IV .Q24H [facility]; Protocol Stop: 04/08/25 20:59 Last Infusion: 04/08/25 10:12 Dose: 70 mls/hr Documented By: RUBEN Lactated Ringer's (Lr) 1,000 mls @ 50 mls/hr IVCONT .Q20H [facility] Last Infusion: 04/08/25 08:52 Dose: Infused Documented By: DEBORAH Lactated Ringer's (Lr) 1,000 mls @ 50 mls/hr IVCONT .Q20H [facility] Nutrition (Parenteral) (Parenteral Nutrition) 1,680 mls @ 70 mls/hr IV .Q24H [facility]; Protocol Stop: 04/09/25 20:59 Loperamide HCl (Loperamide Hcl 2 Mg Capsule) 2 mg PO Q6H PRN PRN Reason: Diarrhea Magnesium Hydroxide (Milk Of Magnesia 30 Ml Oral.Susp) 30 ml PO DAILY PRN PRN Reason: Constipation Melatonin (Melatonin 3 Mg Tablet) 3 mg PO BEDTIME PRN PRN Reason: Sleep Naloxone HCl (Naloxone Hcl 0.4 Mg/Ml Vial) 0.04 mg IVPUSH Q5M PRN PRN Reason: Excessive sedation or RR < 8 Naloxone HCl (Naloxone Hcl 0.4 Mg/Ml Vial) 0.04 mg IVPUSH Q5M PRN PRN Reason: Excessive sedation or RR < 8 Naloxone HCl (Naloxone Hcl 0.4 Mg/Ml Vial) 0.04 mg IVPUSH Q5M PRN PRN Reason: Excessive sedation or RR < 8 Naloxone HCl (Naloxone Hcl 0.4 Mg/Ml Vial) 0.04 mg IVPUSH Q5M PRN PRN Reason: Excessive sedation or RR < 8 Olanzapine (Olanzapine 10 Mg Vial) 2.5 mg IM BID [facility] Last Admin: 04/08/25 10:27 Dose: 2.5 mg Documented By: RUBEN Omeprazole (Omeprazole 20 Mg Capsule.Dr) 20 mg PO DAILY@0630 [facility] Last Admin: 04/08/25 05:41 Dose: Not Given Documented By: COCO Non-Admin Reason: Patient Refused Ondansetron HCl (Ondansetron Hcl 4 Mg/2 Ml Vial) 4 mg IVPUSH Q8H PRN PRN Reason: Nausea and Vomiting Pharmacy Consult (Consult Rx Parenteral Nutrition Ordering) 1 each MISCELLANE DAILY PRN PRN Reason: Consult order Polyethylene Glycol (Polyethylene Glycol 3350 17 Gm Powd.Pack) 17 gm PO DAILY PRN PRN Reason: Constipation Potassium Chloride (Potassium Chloride Packet 20 Meq Packet) 20 meq PO BID [facility] Last Admin: 04/08/25 10:29 Dose: 20 meq Documented By: RUBEN Senna (Sennosides 8.6 Mg Tablet) 17.2 mg PO BEDTIME [facility] Last Admin: 04/07/25 22:03 Dose: Not Given Documented By: COCO Non-Admin Reason: Patient Refused Sodium Chloride (0.9 % Sodium Chloride Flush 3 Ml Syringe) 3 ml IVFLUSH QSHIFT [facility] Last Admin: 04/08/25 09:44 Dose: Not Given Documented By: RUBEN Non-Admin Reason: Previously Administered Thiamine HCl (Thiamine Hcl 100 Mg Tablet) 100 mg PO BID [facility] Last Admin: 04/08/25 10:29 Dose: 100 mg Documented By: RUBEN Labs 03/31/25 05:03 04/08/25 05:31 Labs: Laboratory Results - last 24 hr 04/08/25 05:31 Hold Purple Top SEE NOTE Anion Gap 14 Estim Creat Clear Calc 99.5 Estimated GFR > 60 Random Glucose 118 H Calcium 9.4 Phosphorus 3.5 Magnesium 2.2 Albumin 3.3 L Triglycerides 103 Assessment and Plan (1) Catatonia: Status: Acute Plan 69F PMH bipolar, recurrent utis, history of DVT no longer on AC, presented with catatonia bioplar with catatonia and mod preotein calorie malnutrition continue valium, ECTs, ppn, monitor strict calorie count improving slowly, was verbal today after ECT psych following acute hypoxic respiratory failure due to possible pna completed 1 week mere dvt prophlaxis - fondaparinaux full code reason for continued hospitalization:still with some catatonia needing ppn Quality Stroke Does the patient have a stroke diagnosis?: No Reason for No Anti-thrombotic by Day Two: Drug declined by patient VTE Prior VTE?: No VTE Risk Level:: Medical - low VTE Device Contraindication: N/A - Device Ordered VTE Drug Contraindication: N/A - Med Ordered
--- NOTE | 2025-04-08 11:02 | MHC.CM.PN ---
Patient received ECT today. Per MD not medically cleared. She continues with some Catatonia. She continues to require PPN. CHRISTOPHE IPLOC once medically cleared and evaluated by Psych. Psych is following patient.
[2025-04-08] MEDS: Parenteral Nutrition 1,680 ML 70 ML IV (22:30)
[2025-04-08] MEDS: 0.9 % Sodium Chloride Flush 3 ML SYRINGE IVFLUSH (22:31)
[2025-04-09 04:00] VITALS: BP 121/58; PULSE 78; RESP 16; TEMP 36; O2SAT 94
[2025-04-09 06:28] LABS: Albumin Level 2.8 g/dL (3.5-5.0); Anion Gap 10 (12-20); Blood Urea Nitrogen 15 mg/dL (9-16); Calcium 8.9 mg/dL (8.4-10.2); Carbon Dioxide 25 mmol/L (22-29); Chloride 105 mmol/L (96-108); Creatinine Clr Calc Pharmacy 99.5; Estimated Glomerular Filt Rate > 60; Magnesium 2.1 mg/dL (1.6-2.6); Potassium 4.2 mmol/L (3.3-5.1); Sodium 136 mmol/L (135-145)
[2025-04-09 07:54] VITALS: BP 116/71; PULSE 72; RESP 12; TEMP 36.5; O2SAT 94
[2025-04-09] MEDS: OLANZapine 10 MG VIAL 2.5 MG IM ×2 (09:24→18:38)
[2025-04-09] MEDS: diazePAM 10 MG/2 ML CARTRIDGE 4 MG IVPUSH ×2 (09:25→21:35)
--- NOTE | 2025-04-09 09:37 | HO.PM.IMPN ---
Subjective Subjective Date of Service: 04/09/25 Interval History: Not hungry today in a bad mood Physical Exam Exam: Exam: Alert, less communicative but still verbal today, non participatory Vital Signs: Vital Signs: Last Vital Signs Temp 97.7 F 04/09/25 07:54 Pulse 72 04/09/25 07:54 Resp 12 04/09/25 07:54 BP 116/71 04/09/25 07:54 Pulse Ox 94 04/09/25 07:54 O2 Del Method Room Air 04/09/25 07:54 O2 Flow Rate 3 04/08/25 08:08 BMI result Body Mass Index 25.7 Objective Data Active Medications Acetaminophen (Acetaminophen 325 Mg Tablet) 650 mg PO Q6H PRN PRN Reason: Pain, Mild 1-3,fever,headache Calcium Carbonate (Calcium Carbonate 750 Mg Tab.Chew) 750 mg PO Q4H PRN PRN Reason: Heartburn Diazepam (Diazepam 10 Mg/2 Ml Cartridge) 4 mg IVPUSH TID [facility] Last Admin: 04/09/25 09:25 Dose: 4 mg Documented By: RUBEN Docusate Sodium (Docusate Sodium 100 Mg Capsule) 100 mg PO BID PRN PRN Reason: Constipation Fondaparinux (Fondaparinux Sodium 2.5 Mg/0.5 Ml Syringe) 2.5 mg SUBCUT Q24H [facility] Last Admin: 04/08/25 17:01 Dose: 2.5 mg Documented By: RUBEN Guaifenesin (Guaifenesin 200 Mg/10 Ml 10 Ml Liquid) 10 ml PO Q4H PRN PRN Reason: Cough Last Admin: 04/01/25 12:07 Dose: 10 ml Documented By: EMANI Lactated Ringer's (Lr) 1,000 mls @ 50 mls/hr IVCONT .Q20H [facility] Last Admin: 04/09/25 03:00 Dose: Not Given Documented By: YEE Non-Admin Reason: No Access Nutrition (Parenteral) (Parenteral Nutrition) 1,680 mls @ 70 mls/hr IV .Q24H [facility]; Protocol Stop: 04/09/25 20:59 Last Admin: 04/08/25 22:30 Dose: 70 mls/hr Documented By: YEE Nutrition (Parenteral) (Parenteral Nutrition) 1,680 mls @ 70 mls/hr IV .Q24H [facility]; Protocol Stop: 04/10/25 20:59 Loperamide HCl (Loperamide Hcl 2 Mg Capsule) 2 mg PO Q6H PRN PRN Reason: Diarrhea Magnesium Hydroxide (Milk Of Magnesia 30 Ml Oral.Susp) 30 ml PO DAILY PRN PRN Reason: Constipation Melatonin (Melatonin 3 Mg Tablet) 3 mg PO BEDTIME PRN PRN Reason: Sleep Naloxone HCl (Naloxone Hcl 0.4 Mg/Ml Vial) 0.04 mg IVPUSH Q5M PRN PRN Reason: Excessive sedation or RR < 8 Naloxone HCl (Naloxone Hcl 0.4 Mg/Ml Vial) 0.04 mg IVPUSH Q5M PRN PRN Reason: Excessive sedation or RR < 8 Naloxone HCl (Naloxone Hcl 0.4 Mg/Ml Vial) 0.04 mg IVPUSH Q5M PRN PRN Reason: Excessive sedation or RR < 8 Naloxone HCl (Naloxone Hcl 0.4 Mg/Ml Vial) 0.04 mg IVPUSH Q5M PRN PRN Reason: Excessive sedation or RR < 8 Olanzapine (Olanzapine 10 Mg Vial) 2.5 mg IM BID [facility] Last Admin: 04/09/25 09:24 Dose: 2.5 mg Documented By: RUBEN Omeprazole (Omeprazole 20 Mg Capsule.) 20 mg PO DAILY@0630 [facility] Last Admin: 04/09/25 05:38 Dose: Not Given Documented By: YEE Non-Admin Reason: Patient Refused Ondansetron HCl (Ondansetron Hcl 4 Mg/2 Ml Vial) 4 mg IVPUSH Q8H PRN PRN Reason: Nausea and Vomiting Pharmacy Consult (Consult Rx Parenteral Nutrition Ordering) 1 each MISCELLANE DAILY PRN PRN Reason: Consult order Polyethylene Glycol (Polyethylene Glycol 3350 17 Gm Powd.Pack) 17 gm PO DAILY PRN PRN Reason: Constipation Potassium Chloride (Potassium Chloride Packet 20 Meq Packet) 20 meq PO BID [facility] Last Admin: 04/09/25 09:23 Dose: Not Given Documented By: RUBEN Non-Admin Reason: Patient Refused Senna (Sennosides 8.6 Mg Tablet) 17.2 mg PO BEDTIME [facility] Last Admin: 04/08/25 22:31 Dose: Not Given Documented By: HO.ORLANDV Non-Admin Reason: Patient Refused Sodium Chloride (0.9 % Sodium Chloride Flush 3 Ml Syringe) 3 ml IVFLUSH QSHIFT [facility] Last Admin: 04/09/25 09:16 Dose: Not Given Documented By: RUBEN Non-Admin Reason: IV Running Thiamine HCl (Thiamine Hcl 100 Mg Tablet) 100 mg PO BID [facility] Last Admin: 04/09/25 09:24 Dose: Not Given Documented By: RUBEN Non-Admin Reason: Patient Refused Labs 03/31/25 05:03 04/09/25 05:20 Labs: Laboratory Results - last 24 hr 04/09/25 05:20 Hold Purple Top SEE NOTE Anion Gap 10 L Estim Creat Clear Calc 99.5 Estimated GFR > 60 Random Glucose 123 H Calcium 8.9 Phosphorus 3.3 Magnesium 2.1 Albumin 2.8 L Assessment and Plan (1) Catatonia: Status: Acute Plan 69F PMH bipolar, recurrent utis, history of DVT no longer on AC, presented with catatonia bioplar with catatonia and mod preotein calorie malnutrition continue valium, ECTs, ppn, monitor strict calorie count - ate well yesterday improving slowly, better on ECT days psych following acute hypoxic respiratory failure due to possible pna completed 1 week merem dvt prophlaxis - fondaparinaux full code reason for continued hospitalization:still with some catatonia needing ppn Quality Stroke Does the patient have a stroke diagnosis?: No Reason for No Anti-thrombotic by Day Two: Drug declined by patient VTE Prior VTE?: No VTE Risk Level:: Medical - low VTE Device Contraindication: N/A - Device Ordered VTE Drug Contraindication: N/A - Med Ordered
--- NOTE | 2025-04-09 10:11 | MHC.CLN ---
F/U PO INTAKE 50% AVG X4 MEALS DIET RX: GRD M/S REVIEWED LABS COMMUNICATED WITH PHARMACY CONTINUE PPN AT MAX GOAL RATE OF 70 ML/HR WITH 65 G LIPIDS PROVIDES 1507 TOTAL KCALS (26.1 KCALS/KG CMW), 71 G PROTEIN (1.2 G/KG CMW), 168 G DEXTROSE REPLETE LYTES NEEDED MONITOR FOR PO INTAKE GOAL TO REDUCE PPN PO INTAKE IMPROVES
--- NOTE | 2025-04-09 12:41 | HO.WOUND ---
Wound Consult: Follow up 69yr old? female admitted to [facility] on 03/21/25 19:08- See progress notes and H&P for detailed history.? Wound consult placed for redness to buttock.? Patient has sitter present and is nonverbal at this time, except No . ? Re-eval today, improving and not evolving, no new topical recommendations at this time, wound care will follow. ZEINA Mattress in use - Patient remains nutritionally compromised nutrition following patient appears cachectic and overall thin. She is noted to have psoriatric skin lesions on her face and arms. Sacrum / Buttock 03/31/25 Sacrum/buttock 04/01/25 04/02/25 04/03/25 04/06/25 04/09/25 Etiology: ?Redness Wound Bed: intact redness blanchable tissue - improved from previous assessment - irregular and not located over bony prominence, dark areas are darker in appearance but irregular in texture firm abrasion like pimples not consistent with pressure injury at this time Drainage / Odor: None Edges: ? irregular Annel wound: improving ?redness No Induration, Fluctuance or Warmth noted Goals of Treatment: ? off load pressure foam dressing applied Recommendations: 1. Turn and Reposition every 2 hours and as needed for patient comfort.? Use pillows or wedges to support off loading positions. 2. Off Load all bony prominences with use of pillows and heel boots if needed.? Apply Preventative foams where needed. ? 3. Monitor for incontinence and moisture control, use barrier creams when needed for prevention and treatment. 4. Provide adequate and supplemental nutrition.? 5. Continue low air loss mattress. 6. When applicable maintain blood glucose levels per Providers order. Buttock and Sacrum - Off Load Pressure with Q2 hr turns and use of pillows - Routine cleansing.? Apply skin prep allow to dry.? Cover with foam dressing to aid in off loading and protection from friction. Change every 3 days and PRN. Bilateral Heels? - Elevate heels off of bed surface with pillows.? Float heels off of pillows.? Apply skin prep allow to dry.? Apply heel foam dressings, peel back and assess Q shift and change every 5-7 days and PRN. Re-consult wound care Nurse for wound deterioration or wound changes.
[2025-04-09 16:00] VITALS: BP 108/69; PULSE 78; RESP 16; TEMP 36.6; O2SAT 95
--- NOTE | 2025-04-09 16:49 | MHC.SLORD ---
Speech Language Pathology Order Status: Attempted to see patient this p.m., offered patient a variety of snacks or drinks, patient refused all. Patient significantly more verbal today, answered questions about her previous dog, but also delusional about saving her baby. BOARDING KENNEL OR CATTERY OPERATOR will continue to follow.
--- NOTE | 2025-04-09 18:40 | PC.NURSE ---
Patient presenting with increased agitation. Attempting to jump out of bed and attempting to pull out IV. Verbal re-direction attempted with no effect. Patient presenting with congregational fixation, yelling I don't want to be with Satan! . Bedtime Zyprexa given early per Dr. Hernandez. See MAR for details. Respirations even and unlabored.
[2025-04-09 19:44] VITALS: BP 108/67; PULSE 76; RESP 18; TEMP 36.6; O2SAT 95
[2025-04-09] MEDS: Parenteral Nutrition 1,680 ML 70 ML IV (21:21)
[2025-04-09] MEDS: OLANZapine 10 MG VIAL 5 MG IM (22:42)
[2025-04-09 23:31] VITALS: RESP 18
[2025-04-10] VITALS (10 sets, daily range): BP systolic 105–155; BP diastolic 60–108; PULSE 78–101; RESP 16–20; TEMP 36.3–37.1; O2SAT 92–97
--- NOTE | 2025-04-10 05:38 | PC.NURSE ---
Addendum entered by Jennifer Simms RN 04/10/25 06:42: Pt was transported to PACU for her ECT at 0600. Original Note: Pt seen at shift change , yelling and restless, combative to staff and unredirectible, sitter was continuously redirecting pt, trying to get out of bed, toileted and needs attended, offered meds but refused tried to distract and divert attention but no avail, gave scheduled Vaium but had a short term effect, pt resumed yelling, agitated, trying to pull IVline saying she doesn't want it anymore, combative, Dr. Kan was notifed, Zyprexa 5 mg IM given, pt slept after, safety camera maintained, unable to cover with a sitter at 0300, vitals benign, awaken with care, fell back to sleep after.
[2025-04-10 06:40] LABS: Albumin Level 3.1 g/dL (3.5-5.0); Anion Gap 10 (12-20); Blood Urea Nitrogen 14 mg/dL (9-16); Calcium 9.3 mg/dL (8.4-10.2); Carbon Dioxide 27 mmol/L (22-29); Chloride 106 mmol/L (96-108); Creatinine Clr Calc Pharmacy 103.4; Estimated Glomerular Filt Rate > 60; Magnesium 2.1 mg/dL (1.6-2.6); Potassium 4.2 mmol/L (3.3-5.1); Sodium 139 mmol/L (135-145)
--- NOTE | 2025-04-10 06:48 | P.CONAN_ITS ---
[facility] Active Problems Active Problems: All Active Problems Encounter for preoperative pulmonary examination (Acute) Agitated (Acute) Catatonia (Acute) Delirium due to another medical condition (Acute) Delirium (Acute) UTI (urinary tract infection) (Acute) Dehydration (Acute) Arthritis of right knee (Acute) Bipolar 1 disorder, depressed, severe (Acute) Elevated troponin (Acute) Chest discomfort (Acute) S/P cardiac catheterization (Acute) Bipolar 1 disorder (Acute) Varus deformity of knee (Acute) Osteoarthritis of left knee (Acute) Anxiety (Acute) GERD (gastroesophageal reflux disease) (Acute) Insomnia (Acute) Osteopenia (Acute) Murmur, cardiac (Acute) Status post total knee replacement, left (Acute) Acute deep vein thrombosis (DVT) of left tibial vein (Chronic) Past Medical History Medical History Delirium due to another medical condition History of skin cancer Hx of bladder problems VITO (generalized anxiety disorder) Murmur, cardiac Hx of thyroid nodule Osteopenia Hx of skin cancer, basal cell Seasonal allergies Insomnia Constipation GERD (gastroesophageal reflux disease) Anxiety History of electroconvulsive therapy Bipolar 1 disorder Functional capacity: bed bound Family History Family History Mother Basal cell carcinoma (BCC) in situ of skin Osteoporosis Hyperlipidemia Father CAD (coronary artery disease) Alcoholism Sister Osteoporosis Depression Brother Cancer of tongue Cancer of skin Family history of problems with anesthesia: No Surgical History Surgical History Hx of colonoscopy H/O elbow surgery History of back surgery History of Problems with Anesthesia: No Social History Social History Household Members: Unknown / Unable to assess Household Members Other:: brought in [facility] Housing: Unknown / Unable to assess Are you a primary foster care therapist to a significant other at home: No Do you presently have visiting nurse or other home services: Yes Unable to assess alcohol history related to: Unable to respond Comment: sitter at bedside Patient Tobacco Use Status: Tobacco use Unknown Tobacco use type: Cigarette Years Smoked: 30+, now vapes e-Cigarette/Vaping Use: Currently Using Second Hand Smoke Exposure: No Substance Use Type: Crack/Cocaine Advance Directives Date on File: 06/12/24 service: No Current occupational status: unemployed and retired 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 Sexual orientation: Straight/Heterosexual Meds Allergies Allergy/AdvReac Type Severity Reaction Status Date / Time bee pollen Allergy Severe Anaphylaxis Verified 03/21/25 14:48 levofloxacin (From Levaquin) Allergy Severe Itching Verified 03/21/25 14:48 enoxaparin (From Lovenox) Allergy Intermediate Rash Verified 03/21/25 14:48 Seasonal Allergies Allergy Mild Runny Nose Verified 03/21/25 14:48 venlafaxine (From Effexor) Allergy Mild Constipatio Verified 03/21/25 14:48 n Penicillins Allergy Unknown Unknown Verified 03/21/25 14:48 Active Medications: Current Medications Acetaminophen (Acetaminophen 325 Mg Tablet) 650 mg PO Q6H PRN PRN Reason: Pain, Mild 1-3,fever,headache Calcium Carbonate (Calcium Carbonate 750 Mg Tab.Chew) 750 mg PO Q4H PRN PRN Reason: Heartburn Diazepam (Diazepam 10 Mg/2 Ml Cartridge) 4 mg IVPUSH TID COUNT INCLUDES THE [facility] Last Admin: 04/09/25 21:35 Dose: 4 mg Docusate Sodium (Docusate Sodium 100 Mg Capsule) 100 mg PO BID PRN PRN Reason: Constipation Fondaparinux (Fondaparinux Sodium 2.5 Mg/0.5 Ml Syringe) 2.5 mg SUBCUT Q24H COUNT INCLUDES THE [facility] Last Admin: 04/09/25 16:48 Dose: Not Given Guaifenesin (Guaifenesin 200 Mg/10 Ml 10 Ml Liquid) 10 ml PO Q4H PRN PRN Reason: Cough Last Admin: 04/01/25 12:07 Dose: 10 ml Lactated Ringer's (Lr) 1,000 mls @ 50 mls/hr IVCONT .Q20H COUNT INCLUDES THE [facility] Last Admin: 04/09/25 23:13 Dose: Not Given Nutrition (Parenteral) (Parenteral Nutrition) 1,680 mls @ 70 mls/hr IV .Q24H COUNT INCLUDES THE [facility]; Protocol Stop: 04/10/25 20:59 Last Admin: 04/09/25 21:21 Dose: 70 mls/hr Lactated Ringer's (Lr) 1,000 mls @ 50 mls/hr IVCONT .Q20H COUNT INCLUDES THE [facility] Loperamide HCl (Loperamide Hcl 2 Mg Capsule) 2 mg PO Q6H PRN PRN Reason: Diarrhea Magnesium Hydroxide (Milk Of Magnesia 30 Ml Oral.Susp) 30 ml PO DAILY PRN PRN Reason: Constipation Melatonin (Melatonin 3 Mg Tablet) 3 mg PO BEDTIME PRN PRN Reason: Sleep Naloxone HCl (Naloxone Hcl 0.4 Mg/Ml Vial) 0.04 mg IVPUSH Q5M PRN PRN Reason: Excessive sedation or RR < 8 Naloxone HCl (Naloxone Hcl 0.4 Mg/Ml Vial) 0.04 mg IVPUSH Q5M PRN PRN Reason: Excessive sedation or RR < 8 Naloxone HCl (Naloxone Hcl 0.4 Mg/Ml Vial) 0.04 mg IVPUSH Q5M PRN PRN Reason: Excessive sedation or RR < 8 Naloxone HCl (Naloxone Hcl 0.4 Mg/Ml Vial) 0.04 mg IVPUSH Q5M PRN PRN Reason: Excessive sedation or RR < 8 Olanzapine (Olanzapine 10 Mg Vial) 2.5 mg IM BID COUNT INCLUDES THE [facility] Last Admin: 04/09/25 18:38 Dose: 2.5 mg Omeprazole (Omeprazole 20 Mg Capsule.Dr) 20 mg PO DAILY@0630 COUNT INCLUDES THE [facility] Last Admin: 04/10/25 05:27 Dose: Not Given Ondansetron HCl (Ondansetron Hcl 4 Mg/2 Ml Vial) 4 mg IVPUSH Q8H PRN PRN Reason: Nausea and Vomiting Pharmacy Consult (Consult Rx Parenteral Nutrition Ordering) 1 each MISCELLANE DAILY PRN PRN Reason: Consult order Polyethylene Glycol (Polyethylene Glycol 3350 17 Gm Powd.Pack) 17 gm PO DAILY PRN PRN Reason: Constipation Potassium Chloride (Potassium Chloride Packet 20 Meq Packet) 20 meq PO BID COUNT INCLUDES THE [facility] Last Admin: 04/09/25 21:38 Dose: Not Given Senna (Sennosides 8.6 Mg Tablet) 17.2 mg PO BEDTIME COUNT INCLUDES THE [facility] Last Admin: 04/09/25 21:38 Dose: Not Given Sodium Chloride (0.9 % Sodium Chloride Flush 3 Ml Syringe) 3 ml IVFLUSH QSHIFT COUNT INCLUDES THE [facility] Last Admin: 04/10/25 00:32 Dose: Not Given Thiamine HCl (Thiamine Hcl 100 Mg Tablet) 100 mg PO BID COUNT INCLUDES THE [facility] Last Admin: 04/09/25 21:38 Dose: Not Given Home Medications ?Medication ?Instructions ?Recorded ?Confirmed ?Last Taken ?Type benztropine 0.5 mg tablet 0.5 mg PO Q12H 03/22/25 09/2 07/26 Unknown History docusate sodium 100 mg capsule 1 cap PO BID PRN Consti pation 03/22/25 03/22/25 Unknown History hydroxyzine HCl 25 mg tablet 50 mg PO Q4H PRN Anxiety 03/22/25 03/22/25 Unknown History ibuprofen 400 mg tablet 400 mg PO Q8H PRN Pain 03/2203/22/25 Unknown History loperamide 2 mg tablet 2 mg PO Q6H PRN Diarrhea 03/22/25 Unknown History lorazepam 0.5 mg tablet 0.5 mg PO TID 03/22/2503/22 Unknown History melatonin 3 mg tablet 3 mg PO BEDTIME PRN Sleep 03/22/25 Unknown History mirtazapine 15 mg tablet 15 mg PO BEDTIME 03/22/25 Unknown History nitrofurantoin 100 mg PO BID 03/22/2503/22 Unknown History monohydrate/macrocrystals 100 mg capsule (Macrobid) ondansetron HCl 4 mg tablet 4 mg PO Q6H PRN Nausea And Vomiting 03/22/25 03/22/25 Unknown History pantoprazole 40 mg tablet,delayed 40 mg PO DAILY@0630 03/22/25 03/22/25 Unknown History release quetiapine 400 mg tablet 400 mg PO BEDTIME 03/22/25 0 03/22/25 Unknown History quetiapine 50 mg tablet 50 mg PO BID 03/22/25 Unknown History Exam Height,Weight and Vital Signs: Height 5 ft 4 in Weight 68 kg Last Vital Signs Temp 97.3 F 04/10/25 06:23 Pulse 87 04/10/25 06:23 Resp 16 04/10/25 06:23 BP 112/66 04/10/25 06:23 Pulse Ox 94 04/10/25 06:23 O2 Del Method Room Air 04/10/25 06:23 O2 Flow Rate 3 04/08/25 08:08 Pertinent Lab Results Pertinent Lab Results: Laboratory Tests 03/21/25 03/21/25 03/22/25 15:09 16:46 04:12 WBC 11.3 H 7.6 RBC 4.28 3.70 L Hgb 13.2 11.2 L Hct 36.9 L 32.5 L MCV 86.2 87.8 MCH 30.8 30.3 MCHC 35.8 H 34.5 RDW 13.5 13.4 Plt Count 269 234 MPV 9.3 L 9.2 L Immature Gran % (Auto) 0.8 H 0.9 H Neut % (Auto) 77.8 H 67.9 Lymph % (Auto) 11.0 L 17.5 L Preston % (Auto) 10.2 12.4 H Eos % (Auto) 0.0 0.9 Baso % (Auto) 0.2 0.4 Lymph # (Auto) 1.3 1.3 Preston # (Auto) 1.2 0.9 Eos # (Auto) 0.0 0.1 Baso # (Auto) 0.0 0.0 Abs Immat Gran (auto) 0.09 H 0.07 H Absolute Neuts (auto) 8.8 H 5.2 Absolute Nucleated RBC 0.000 0.000 Nucleated RBC % (auto) 0.0 0.0 Hold Purple Top Sodium 136 140 Potassium 4.3 D 2.9 L* D Chloride 104 108 Carbon Dioxide 20 L 22 Anion Gap 16 13 BUN 46 H 25 H Creatinine 1.23 0.62 Estim Creat Clear Calc 42.0 83.4 Estimated GFR 44 > 60 Random Glucose 111 121 H Estimat Average Glucose Hemoglobin A1c % Lactic Acid Calcium 9.9 8.3 L D Phosphorus Magnesium 2.3 Total Bilirubin 0.6 0.6 AST 107 H 80 H ALT 38 H 28 Alkaline Phosphatase 113 88 Ammonia 16 Total Creatine Kinase NT-Pro-B Natriuret Pep Total Protein 7.3 5.7 L Albumin 4.3 3.4 L Triglycerides Cholesterol LDL Cholesterol, Calc HDL Cholesterol Urine Color Yellow Urine Appearance Cloudy Urine pH 5.5 Ur Specific [place] 1.020 Urine Protein 30 (1+) H Urine Glucose (UA) Negative Urine Ketones 15 Urine Blood Small (1+) H Urine Nitrite Negative Ur Leukocyte Esterase Small (1+) H Urine RBC 3-5 H Urine WBC 11-20 H Ur Squamous Epith Cells 0-2 Urine Bacteria 4+ Hyaline Casts 3-5 Urine Opiates Screen Not Detected Ur Buprenorphine Scrn Not Detected Ur Oxycodone Screen Not Detected Urine Methadone Screen Not Detected Urine Fentanyl Screen Not Detected Ur Barbiturates Screen Not Detected Ur Phencyclidine Scrn Not Detected Ur Amphetamines Screen Not Detected U Benzodiazepines Scrn Not Detected Urine Cocaine Screen Not Detected U Marijuana (THC) Screen Not Detected 03/22/25 03/23/25 03/23/25 13:30 05:44 11:28 WBC RBC Hgb Hct MCV MCH MCHC RDW Plt Count MPV Immature Gran % (Auto) Neut % (Auto) Lymph % (Auto) Preston % (Auto) Eos % (Auto) Baso % (Auto) Lymph # (Auto) [place] # (Auto) Eos # (Auto) Baso # (Auto) Abs Immat Gran (auto) Absolute Neuts (auto) Absolute Nucleated RBC Nucleated RBC % (auto) Hold Purple Top SEE NOTE Sodium 139 Potassium 3.1 L 2.7 L* 4.3 D Chloride 109 H Carbon Dioxide 25 Anion Gap 8 L BUN 6 L Creatinine 0.48 L Estim Creat Clear Calc 107.8 Estimated GFR > 60 Random Glucose 134 H Estimat Average Glucose Hemoglobin A1c % Lactic Acid Calcium 8.0 L Phosphorus Magnesium 1.5 L Total Bilirubin AST ALT Alkaline Phosphatase Ammonia Total Creatine Kinase NT-Pro-B Natriuret Pep Total Protein Albumin Triglycerides Cholesterol LDL Cholesterol, Calc HDL Cholesterol Urine Color Urine Appearance Urine pH Ur Specific [place] Urine Protein Urine Glucose (UA) Urine Ketones Urine Blood Urine Nitrite Ur Leukocyte Esterase Urine RBC Urine WBC Ur Squamous Epith Cells Urine Bacteria Hyaline Casts Urine Opiates Screen Ur Buprenorphine Scrn Ur Oxycodone Screen Urine Methadone Screen Urine Fentanyl Screen Ur Barbiturates Screen Ur Phencyclidine Scrn Ur Amphetamines Screen U Benzodiazepines Scrn Urine Cocaine Screen U Marijuana (THC) Screen 03/23/25 03/24/25 03/25/25 17:01 05:12 05:36 WBC RBC Hgb Hct MCV MCH MCHC RDW Plt Count MPV Immature Gran % (Auto) Neut % (Auto) Lymph % (Auto) Preston % (Auto) Eos % (Auto) Baso % (Auto) Lymph # (Auto) [place] # (Auto) Eos # (Auto) Baso # (Auto) Abs Immat Gran (auto) Absolute Neuts (auto) Absolute Nucleated RBC Nucleated RBC % (auto) Hold Purple Top SEE NOTE Sodium 140 141 137 Potassium 3.3 D 3.5 4.0 Chloride 110 H 110 H 105 Carbon Dioxide 24 25 22 Anion Gap 9 L 10 L 14 BUN 3 L 4 L Creatinine 0.49 L 0.54 Estim Creat Clear Calc 105.6 95.8 Estimated GFR > 60 > 60 Random Glucose 122 H 135 H Estimat Average Glucose Hemoglobin A1c % Lactic Acid Calcium 8.1 L 9.5 D Phosphorus Magnesium Total Bilirubin AST ALT Alkaline Phosphatase Ammonia Total Creatine Kinase NT-Pro-B Natriuret Pep Total Protein Albumin Triglycerides Cholesterol LDL Cholesterol, Calc HDL Cholesterol Urine Color Urine Appearance Urine pH Ur Specific [place] Urine Protein Urine Glucose (UA) Urine Ketones Urine Blood Urine Nitrite Ur Leukocyte Esterase Urine RBC Urine WBC Ur Squamous Epith Cells Urine Bacteria Hyaline Casts Urine Opiates Screen Ur Buprenorphine Scrn Ur Oxycodone Screen Urine Methadone Screen Urine Fentanyl Screen Ur Barbiturates Screen Ur Phencyclidine Scrn Ur Amphetamines Screen U Benzodiazepines Scrn Urine Cocaine Screen U Marijuana (THC) Screen 03/26/25 03/27/25 03/28/25 16:26 09:19 09:17 WBC 14.6 H 11.7 H 9.9 RBC 4.63 D 4.29 3.78 L Hgb 14.0 D 13.0 11.6 L Hct 41.0 D 37.1 33.4 L MCV 88.6 86.5 88.4 MCH 30.2 30.3 30.7 MCHC 34.1 35.0 34.7 RDW 13.8 13.7 13.9 Plt Count 268 255 228 MPV 8.5 L 8.4 L 8.4 L Immature Gran % (Auto) 0.8 H Neut % (Auto) 77.9 H Lymph % (Auto) 11.4 L Preston % (Auto) 9.4 Eos % (Auto) 0.1 Baso % (Auto) 0.4 Lymph # (Auto) 1.7 Preston # (Auto) 1.4 H Eos # (Auto) 0.0 Baso # (Auto) 0.1 Abs Immat Gran (auto) 0.11 H Absolute Neuts (auto) 11.4 H Absolute Nucleated RBC 0.000 0.000 0.000 Nucleated RBC % (auto) 0.0 0.0 0.0 Hold Purple Top Sodium 137 140 143 Potassium 4.3 3.8 3.7 Chloride 103 104 109 H Carbon Dioxide 19 L 22 23 Anion Gap 19 18 15 BUN 12 8 L 9 Creatinine 0.57 0.50 0.54 Estim Creat Clear Calc 90.7 103.4 95.8 Estimated GFR > 60 > 60 > 60 Random Glucose 89 79 82 Estimat Average Glucose Hemoglobin A1c % Lactic Acid Calcium 9.4 9.1 8.5 D Phosphorus Magnesium Total Bilirubin 0.4 AST 36 H ALT 24 Alkaline Phosphatase 119 H Ammonia Total Creatine Kinase 325 H NT-Pro-B Natriuret Pep Total Protein 6.8 Albumin 3.7 Triglycerides Cholesterol LDL Cholesterol, Calc HDL Cholesterol Urine Color Urine Appearance Urine pH Ur Specific [place] Urine Protein Urine Glucose (UA) Urine Ketones Urine Blood Urine Nitrite Ur Leukocyte Esterase Urine RBC Urine WBC Ur Squamous Epith Cells Urine Bacteria Hyaline Casts Urine Opiates Screen Ur Buprenorphine Scrn Ur Oxycodone Screen Urine Methadone Screen Urine Fentanyl Screen Ur Barbiturates Screen Ur Phencyclidine Scrn Ur Amphetamines Screen U Benzodiazepines Scrn Urine Cocaine Screen U Marijuana (THC) Screen 03/29/25 03/29/25 03/30/25 13:16 13:17 06:07 WBC 11.0 H RBC 3.98 L Hgb 12.2 Hct 35.1 L MCV 88.2 MCH 30.7 MCHC 34.8 RDW 13.8 Plt Count 224 MPV 8.5 L Immature Gran % (Auto) Neut % (Auto) Lymph % (Auto) Preston % (Auto) Eos % (Auto) Baso % (Auto) Lymph # (Auto) [place] # (Auto) Eos # (Auto) Baso # (Auto) Abs Immat Gran (auto) Absolute Neuts (auto) Absolute Nucleated RBC 0.000 Nucleated RBC % (auto) 0.0 Hold Purple Top SEE NOTE Sodium 138 140 Potassium 3.4 3.3 Chloride 103 104 Carbon Dioxide 26 28 Anion Gap 12 11 L BUN 4 L 8 L Creatinine 0.46 L 0.52 Estim Creat Clear Calc 112.5 99.5 Estimated GFR > 60 > 60 Random Glucose 156 H 140 H Estimat Average Glucose Hemoglobin A1c % Lactic Acid 1.2 Calcium 8.5 9.0 Phosphorus 2.7 Magnesium 1.6 Total Bilirubin AST ALT Alkaline Phosphatase Ammonia Total Creatine Kinase NT-Pro-B Natriuret Pep Total Protein Albumin 2.9 L Triglycerides 72 Cholesterol 132 LDL Cholesterol, Calc 83 HDL Cholesterol 35 L Urine Color Urine Appearance Urine pH Ur Specific [place] Urine Protein Urine Glucose (UA) Urine Ketones Urine Blood Urine Nitrite Ur Leukocyte Esterase Urine RBC Urine WBC Ur Squamous Epith Cells Urine Bacteria Hyaline Casts Urine Opiates Screen Ur Buprenorphine Scrn Ur Oxycodone Screen Urine Methadone Screen Urine Fentanyl Screen Ur Barbiturates Screen Ur Phencyclidine Scrn Ur Amphetamines Screen U Benzodiazepines Scrn Urine Cocaine Screen U Marijuana (THC) Screen 03/30/25 03/31/25 04/01/25 10:57 05:03 05:32 WBC 11.3 H RBC 3.58 L Hgb 10.9 L Hct 32.2 L MCV 89.9 MCH 30.4 MCHC 33.9 RDW 13.8 Plt Count 209 MPV 9.0 L Immature Gran % (Auto) 0.4 Neut % (Auto) 81.2 H Lymph % (Auto) 11.5 L Preston % (Auto) 6.3 Eos % (Auto) 0.3 Baso % (Auto) 0.3 Lymph # (Auto) 1.3 Preston # (Auto) 0.7 Eos # (Auto) 0.0 Baso # (Auto) 0.0 Abs Immat Gran (auto) 0.04 H Absolute Neuts (auto) 9.2 H Absolute Nucleated RBC 0.000 Nucleated RBC % (auto) 0.0 Hold Purple Top SEE NOTE SEE NOTE Sodium 139 139 Potassium 4.3 D 4.4 Chloride 105 104 Carbon Dioxide 28 25 Anion Gap 10 L 14 BUN 9 11 Creatinine 0.45 L 0.48 L Estim Creat Clear Calc 114.9 107.8 Estimated GFR > 60 > 60 Random Glucose 129 H 123 H Estimat Average Glucose Hemoglobin A1c % Lactic Acid 1.2 Calcium 9.1 9.5 Phosphorus 2.3 L 2.8 Magnesium 2.0 2.3 Total Bilirubin AST ALT Alkaline Phosphatase Ammonia Total Creatine Kinase NT-Pro-B Natriuret Pep 86.7 Total Protein Albumin 2.9 L 3.2 L Triglycerides Cholesterol LDL Cholesterol, Calc HDL Cholesterol Urine Color Urine Appearance Urine pH Ur Specific [place] Urine Protein Urine Glucose (UA) Urine Ketones Urine Blood Urine Nitrite Ur Leukocyte Esterase Urine RBC Urine WBC Ur Squamous Epith Cells Urine Bacteria Hyaline Casts Urine Opiates Screen Ur Buprenorphine Scrn Ur Oxycodone Screen Urine Methadone Screen Urine Fentanyl Screen Ur Barbiturates Screen Ur Phencyclidine Scrn Ur Amphetamines Screen U Benzodiazepines Scrn Urine Cocaine Screen U Marijuana (THC) Screen 04/02/25 04/03/25 04/04/25 05:30 09:14 05:57 WBC RBC Hgb Hct MCV MCH MCHC RDW Plt Count MPV Immature Gran % (Auto) Neut % (Auto) Lymph % (Auto) Preston % (Auto) Eos % (Auto) Baso % (Auto) Lymph # (Auto) [place] # (Auto) Eos # (Auto) Baso # (Auto) Abs Immat Gran (auto) Absolute Neuts (auto) Absolute Nucleated RBC Nucleated RBC % (auto) Hold Purple Top SEE NOTE Sodium 139 138 138 Potassium 4.3 4.3 4.2 Chloride 105 104 103 Carbon Dioxide 30 H 28 26 Anion Gap 8 L 10 L 13 BUN 10 12 15 Creatinine 0.45 L 0.49 L 0.48 L Estim Creat Clear Calc 114.9 105.6 107.8 Estimated GFR > 60 > 60 > 60 Random Glucose 124 H 118 H 119 H Estimat Average Glucose Hemoglobin A1c % Lactic Acid Calcium 9.1 9.7 D 9.4 Phosphorus 3.3 3.2 2.9 Magnesium 2.4 2.4 2.3 Total Bilirubin AST ALT Alkaline Phosphatase Ammonia Total Creatine Kinase NT-Pro-B Natriuret Pep Total Protein Albumin 2.8 L 3.3 L 3.0 L Triglycerides Cholesterol LDL Cholesterol, Calc HDL Cholesterol Urine Color Urine Appearance Urine pH Ur Specific [place] Urine Protein Urine Glucose (UA) Urine Ketones Urine Blood Urine Nitrite Ur Leukocyte Esterase Urine RBC Urine WBC Ur Squamous Epith Cells Urine Bacteria Hyaline Casts Urine Opiates Screen Ur Buprenorphine Scrn Ur Oxycodone Screen Urine Methadone Screen Urine Fentanyl Screen Ur Barbiturates Screen Ur Phencyclidine Scrn Ur Amphetamines Screen U Benzodiazepines Scrn Urine Cocaine Screen U Marijuana (THC) Screen 04/05/25 04/06/25 04/06/25 05:49 06:00 06:01 WBC RBC Hgb Hct MCV MCH MCHC RDW Plt Count MPV Immature Gran % (Auto) Neut % (Auto) Lymph % (Auto) Preston % (Auto) Eos % (Auto) Baso % (Auto) Lymph # (Auto) [place] # (Auto) Eos # (Auto) Baso # (Auto) Abs Immat Gran (auto) Absolute Neuts (auto) Absolute Nucleated RBC Nucleated RBC % (auto) Hold Purple Top SEE NOTE Sodium 138 138 Potassium 4.2 4.2 Chloride 105 105 Carbon Dioxide 25 27 Anion Gap 12 10 L BUN 12 14 Creatinine 0.47 L 0.49 L Estim Creat Clear Calc 110.1 105.6 Estimated GFR > 60 > 60 Random Glucose 120 H 126 H Estimat Average Glucose 114 Hemoglobin A1c % 5.6 Lactic Acid Calcium 9.4 9.2 Phosphorus 3.4 3.7 Magnesium 2.2 2.3 Total Bilirubin AST ALT Alkaline Phosphatase Ammonia Total Creatine Kinase NT-Pro-B Natriuret Pep Total Protein Albumin 3.2 L 3.0 L Triglycerides Cholesterol LDL Cholesterol, Calc HDL Cholesterol Urine Color Urine Appearance Urine pH Ur Specific [place] Urine Protein Urine Glucose (UA) Urine Ketones Urine Blood Urine Nitrite Ur Leukocyte Esterase Urine RBC Urine WBC Ur Squamous Epith Cells Urine Bacteria Hyaline Casts Urine Opiates Screen Ur Buprenorphine Scrn Ur Oxycodone Screen Urine Methadone Screen Urine Fentanyl Screen Ur Barbiturates Screen Ur Phencyclidine Scrn Ur Amphetamines Screen U Benzodiazepines Scrn Urine Cocaine Screen U Marijuana (THC) Screen 04/07/25 04/08/25 04/09/25 05:32 05:31 05:20 WBC RBC Hgb Hct MCV MCH MCHC RDW Plt Count MPV Immature Gran % (Auto) Neut % (Auto) Lymph % (Auto) Preston % (Auto) Eos % (Auto) Baso % (Auto) Lymph # (Auto) [place] # (Auto) Eos # (Auto) Baso # (Auto) Abs Immat Gran (auto) Absolute Neuts (auto) Absolute Nucleated RBC Nucleated RBC % (auto) Hold Purple Top SEE NOTE SEE NOTE Sodium 139 139 136 Potassium 4.2 4.1 4.2 Chloride 106 105 105 Carbon Dioxide 24 24 25 Anion Gap 13 14 10 L BUN 14 19 H 15 Creatinine 0.49 L 0.52 0.52 Estim Creat Clear Calc 105.6 99.5 99.5 Estimated GFR > 60 > 60 > 60 Random Glucose 124 H 118 H 123 H Estimat Average Glucose Hemoglobin A1c % Lactic Acid Calcium 9.4 9.4 8.9 Phosphorus 4.1 3.5 3.3 Magnesium 2.2 2.2 2.1 Total Bilirubin AST ALT Alkaline Phosphatase Ammonia Total Creatine Kinase NT-Pro-B Natriuret Pep Total Protein Albumin 3.2 L 3.3 L 2.8 L Triglycerides 103 Cholesterol LDL Cholesterol, Calc HDL Cholesterol Urine Color Urine Appearance Urine pH Ur Specific [place] Urine Protein Urine Glucose (UA) Urine Ketones Urine Blood Urine Nitrite Ur Leukocyte Esterase Urine RBC Urine WBC Ur Squamous Epith Cells Urine Bacteria Hyaline Casts Urine Opiates Screen Ur Buprenorphine Scrn Ur Oxycodone Screen Urine Methadone Screen Urine Fentanyl Screen Ur Barbiturates Screen Ur Phencyclidine Scrn Ur Amphetamines Screen U Benzodiazepines Scrn Urine Cocaine Screen U Marijuana (THC) Screen 04/10/25 05:39 WBC RBC Hgb Hct MCV MCH MCHC RDW Plt Count MPV Immature Gran % (Auto) Neut % (Auto) Lymph % (Auto) [place] % (Auto) Eos % (Auto) Baso % (Auto) Lymph # (Auto) [place] # (Auto) Eos # (Auto) Baso # (Auto) Abs Immat Gran (auto) Absolute Neuts (auto) Absolute Nucleated RBC Nucleated RBC % (auto) Hold Purple Top SEE NOTE Sodium 139 Potassium 4.2 Chloride 106 Carbon Dioxide 27 Anion Gap 10 L BUN 14 Creatinine 0.50 Estim Creat Clear Calc 103.4 Estimated GFR > 60 Random Glucose 110 Estimat Average Glucose Hemoglobin A1c % Lactic Acid Calcium 9.3 Phosphorus 3.8 Magnesium 2.1 Total Bilirubin AST ALT Alkaline Phosphatase Ammonia Total Creatine Kinase NT-Pro-B Natriuret Pep Total Protein Albumin 3.1 L Triglycerides Cholesterol LDL Cholesterol, Calc HDL Cholesterol Urine Color Urine Appearance Urine pH Ur Specific [place] Urine Protein Urine Glucose (UA) Urine Ketones Urine Blood Urine Nitrite Ur Leukocyte Esterase Urine RBC Urine WBC Ur Squamous Epith Cells Urine Bacteria Hyaline Casts Urine Opiates Screen Ur Buprenorphine Scrn Ur Oxycodone Screen Urine Methadone Screen Urine Fentanyl Screen Ur Barbiturates Screen Ur Phencyclidine Scrn Ur Amphetamines Screen U Benzodiazepines Scrn Urine Cocaine Screen U Marijuana (THC) Screen Airway Mallampati Class: II (edentulous on top) TM Dist: >3cm Neck ROM: Full Heart: rrr Lungs: cta Assessment and Plan Assessment Anesthesia Assessment: Anesthesia Plan Discussed and Chart Reviewed Final Anesthetic Review Family History of Problems with Anesthesia: No History of Problems with Anesthesia: No NPO: Yes ASA Class: III Final Preanesthetic Review: No Changes in Pt Med Stat, Meds/Allgs Chart Reviewed and Consent Obtained/Reviewed Patient Risk: Intermediate Procedure Risk: Intermediate Anesthetic Plan Anesthetic Plan: GA Disposition: Standard PACU
--- NOTE | 2025-04-10 08:56 | PC.NURSE ---
Pt returned from ECT was canceled . Pt refusing PPN to be restarted . will continue to encourage , MD Pete uribe
[2025-04-10] MEDS: OLANZapine 10 MG VIAL 2.5 MG IM (09:30)
--- NOTE | 2025-04-10 09:36 | PC.NURSE ---
PPN running at 70cc/hr as ordered
--- NOTE | 2025-04-10 09:38 | HO.PM.IMPN ---
Subjective Subjective Date of Service: 04/10/25 Interval History: no appetite Physical Exam Exam: Exam: Alert, less communicative but still verbal today, non participatory Vital Signs: Vital Signs: Last Vital Signs Temp 97.3 F 04/10/25 06:23 Pulse 87 04/10/25 06:23 Resp 16 04/10/25 06:23 BP 112/66 04/10/25 06:23 Pulse Ox 94 04/10/25 06:23 O2 Del Method Room Air 04/10/25 06:23 O2 Flow Rate 3 04/08/25 08:08 BMI result Body Mass Index 25.7 Objective Data Active Medications Acetaminophen (Acetaminophen 325 Mg Tablet) 650 mg PO Q6H PRN PRN Reason: Pain, Mild 1-3,fever,headache Calcium Carbonate (Calcium Carbonate 750 Mg Tab.Chew) 750 mg PO Q4H PRN PRN Reason: Heartburn Diazepam (Diazepam 10 Mg/2 Ml Cartridge) 4 mg IVPUSH TID [facility] Last Admin: 04/09/25 21:35 Dose: 4 mg Documented By: GAVIN Docusate Sodium (Docusate Sodium 100 Mg Capsule) 100 mg PO BID PRN PRN Reason: Constipation Fondaparinux (Fondaparinux Sodium 2.5 Mg/0.5 Ml Syringe) 2.5 mg SUBCUT Q24H [facility] Last Admin: 04/09/25 16:48 Dose: Not Given Documented By: RUBEN Non-Admin Reason: Patient Refused Guaifenesin (Guaifenesin 200 Mg/10 Ml 10 Ml Liquid) 10 ml PO Q4H PRN PRN Reason: Cough Last Admin: 04/01/25 12:07 Dose: 10 ml Documented By: EMANI Nutrition (Parenteral) (Parenteral Nutrition) 1,680 mls @ 70 mls/hr IV .Q24H [facility]; Protocol Stop: 04/10/25 20:59 Last Admin: 04/09/25 21:21 Dose: 70 mls/hr Documented By: GAVIN Lactated Ringer's (Lr) 1,000 mls @ 50 mls/hr IVCONT .Q20H GRECIA Nutrition (Parenteral) (Parenteral Nutrition) 1,680 mls @ 70 mls/hr IV .Q24H [facility]; Protocol Stop: 04/11/25 20:59 Loperamide HCl (Loperamide Hcl 2 Mg Capsule) 2 mg PO Q6H PRN PRN Reason: Diarrhea Magnesium Hydroxide (Milk Of Magnesia 30 Ml Oral.Susp) 30 ml PO DAILY PRN PRN Reason: Constipation Melatonin (Melatonin 3 Mg Tablet) 3 mg PO BEDTIME PRN PRN Reason: Sleep Naloxone HCl (Naloxone Hcl 0.4 Mg/Ml Vial) 0.04 mg IVPUSH Q5M PRN PRN Reason: Excessive sedation or RR < 8 Naloxone HCl (Naloxone Hcl 0.4 Mg/Ml Vial) 0.04 mg IVPUSH Q5M PRN PRN Reason: Excessive sedation or RR < 8 Naloxone HCl (Naloxone Hcl 0.4 Mg/Ml Vial) 0.04 mg IVPUSH Q5M PRN PRN Reason: Excessive sedation or RR < 8 Naloxone HCl (Naloxone Hcl 0.4 Mg/Ml Vial) 0.04 mg IVPUSH Q5M PRN PRN Reason: Excessive sedation or RR < 8 Naloxone HCl (Naloxone Hcl 0.4 Mg/Ml Vial) 0.04 mg IVPUSH Q5M PRN PRN Reason: Excessive sedation or RR < 8 Olanzapine (Olanzapine 10 Mg Vial) 2.5 mg IM BID [facility] Last Admin: 04/10/25 09:30 Dose: 2.5 mg Documented By: VALARIE Omeprazole (Omeprazole 20 Mg Capsule.Dr) 20 mg PO DAILY@0630 [facility] Last Admin: 04/10/25 05:27 Dose: Not Given Documented By: GAVIN Non-Admin Reason: Patient Refused Ondansetron HCl (Ondansetron Hcl 4 Mg/2 Ml Vial) 4 mg IVPUSH Q8H PRN PRN Reason: Nausea and Vomiting Pharmacy Consult (Consult Rx Parenteral Nutrition Ordering) 1 each MISCELLANE DAILY PRN PRN Reason: Consult order Polyethylene Glycol (Polyethylene Glycol 3350 17 Gm Powd.Pack) 17 gm PO DAILY PRN PRN Reason: Constipation Potassium Chloride (Potassium Chloride Packet 20 Meq Packet) 20 meq PO BID [facility] Last Admin: 04/10/25 09:21 Dose: Not Given Documented By: VALARIE Non-Admin Reason: Patient Refused Senna (Sennosides 8.6 Mg Tablet) 17.2 mg PO BEDTIME [facility] Last Admin: 04/09/25 21:38 Dose: Not Given Documented By: HO.CASTILM Non-Admin Reason: Patient Refused Sodium Chloride (0.9 % Sodium Chloride Flush 3 Ml Syringe) 3 ml IVFLUSH QSHIFT [facility] Last Admin: 04/10/25 09:05 Dose: Not Given Documented By: VALARIE Non-Admin Reason: Patient Refused Thiamine HCl (Thiamine Hcl 100 Mg Tablet) 100 mg PO BID [facility] Last Admin: 04/10/25 09:22 Dose: Not Given Documented By: VALARIE Non-Admin Reason: Patient Refused Labs 03/31/25 05:03 04/10/25 05:39 Labs: Laboratory Results - last 24 hr 04/10/25 05:39 Hold Purple Top SEE NOTE Anion Gap 10 L Estim Creat Clear Calc 103.4 Estimated GFR > 60 Random Glucose 110 Calcium 9.3 Phosphorus 3.8 Magnesium 2.1 Albumin 3.1 L Assessment and Plan (1) Catatonia: Status: Acute Plan 69F PMH bipolar, recurrent utis, history of DVT no longer on AC, presented with catatonia bioplar with catatonia and mod preotein calorie malnutrition continue valium, ECTs, ppn, monitor strict calorie count - ate well on ECT day, but did not eat on non ECT day improving slowly, better on ECT days psych following acute hypoxic respiratory failure due to possible pna completed 1 week merem dvt prophlaxis - fondaparinaux full code reason for continued hospitalization:still with some catatonia needing ppn Quality Stroke Does the patient have a stroke diagnosis?: No Reason for No Anti-thrombotic by Day Two: Drug declined by patient VTE Prior VTE?: No VTE Risk Level:: Medical - low VTE Device Contraindication: N/A - Device Ordered VTE Drug Contraindication: N/A - Med Ordered
--- NOTE | 2025-04-10 10:19 | MHC.CLN ---
F/U DIET RX: GROUND AND NPO WHEN RECEIVING ECT. REVIEWED LABS. COMMUNICATED WITH PHARMACY. CONTINUE PPN AT MAX GOAL RATE OF 70 ML/HR WITH 65 G LIPIDS PROVIDES 1507 TOTAL KCALS (26.1 KCALS/KG CMW), 71 G PROTEIN (1.2 G/KG CMW), 168 G DEXTROSE. REPLETE LYTES NEEDED. MONITOR FOR PO INTAKE. GOAL TO REDUCE PPN PO INTAKE IMPROVES. CONTINUE MAX GOAL RATE. RD AVAILABLE VIA TIGER TEXT OVER WEEKEND.
--- NOTE | 2025-04-10 11:22 | P.HPSUR_ITS ---
Pre-Procedural Eval Section A - 24 Hr Update-Section A only Date of Service: 04/10/25 The patient is an INPATIENT: Yes Changes since office visit: No Cold of Flu in the past 2 weeks, No New Medical Problems, No Changes in Medication and No Patient answered all questions The patient has been examined within 24 hours of the surgical procedure. The History & Physical has been completed within 30 days and I have reviewed it.: Yes Section B - Complete if H&P > 30 days Chief Complaint: Pulmonary periprocedural risk assessment Details of Present Illness: catatonia improved but remains very disorganized; d oes not understand her psychiatric illness Allergies: Allergies Allergy/AdvReac Type Severity Reaction Status Date / Time bee pollen Allergy Severe Anaphylaxis Verified 03/21/25 14:48 levofloxacin (From Levaquin) Allergy Severe Itching Verified 03/21/25 14:48 enoxaparin (From Lovenox) Allergy Intermediate Rash Verified 03/21/25 14:48 Seasonal Allergies Allergy Mild Runny Nose Verified 03/21/25 14:48 venlafaxine (From Effexor) Allergy Mild Constipatio Verified 03/21/25 14:48 n Penicillins Allergy Unknown Unknown Verified 03/21/25 14:48 Plan Diagnosis/Plan: Unchanged I have reviewed the history and physical and performed a pertinent physical examination on my patient. No changes have occurred unless specified. Time Spent With Patient Time: Total time managing care of this patient today ____ minutes.
--- NOTE | 2025-04-10 11:29 | HO.ECTPROC ---
ECT Procedure Note Diagnosis/Treatment Date of Service: 04/10/25 Diagnosis: Bipolar disorder and Catatonia Previous ECT Date: 04/08/25 Current Treatment Number: 5 Treatment: Series Interval Clinical Notes: improved some but remains disorganized in speech and behavior Time: Total time managing care of this patient today ____ minutes. ECT Settings Device: THYMATRON DGx Electrode Placement: Bifrontal Program/Pulse Width: 0.50 Energy Percent: 100 Medications Administration General Anesthetic: Etomidate (12) Muscle Relaxant: Succinylcholine (100) Ancillary Medications Miscillaneous Medications: Flumazenil (0.5) Airway Management Airway Management: Bag Mask Ventilation Treatment Recommendations Electrode Placement: Bifrontal Program/Pulse Width: 0.50 Energy Percent: 100 Notes: pt did not seize at first and procedure done again this time with Flumazenil 0.05mg along with additional Etom 12mg and Succ 100mg. However, patient still did not have a seizure. Did not attempt 3rd time. Later found that patient had been given IV Diazepam at 11:30 am just prior to this procedure. Continue current parameters If Valium is held night before, day of, Flumazenil 0.05mg may be enough, however Consider increasing to Flumazenil 0.1mg regardless
[2025-04-10] MEDS: diazePAM 10 MG/2 ML CARTRIDGE 4 MG IVPUSH ×2 (11:32→16:46)
--- NOTE | 2025-04-10 12:11 | MHC.CM.PN ---
Addendum entered by Ninfa Alcantar 04/10/25 12:15: Patient continues on PPN. Original Note: Per MD rounds patient is not medically cleared. ECT was performed again today. Poor PO with increased catatonia on non ECT days. DP IPLOC once medically cleared.
--- NOTE | 2025-04-10 12:54 | PC.NURSE ---
Pt returned from ECT, awake alert at baseline , pt ate 100% of lunch .
--- NOTE | 2025-04-10 13:09 | MHC.SLORD ---
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 Poor PO intake. Per RN, patient did not eat her breakfast or lunch yesterday.
--- NOTE | 2025-04-10 13:10 | PC.NURSE ---
Pt was aggravated buy the writing on the dry erase board i.e. nurse mat cleaning machine operator date provider and casemanager room number , so board was erased to ease pts anxiety
--- NOTE | 2025-04-10 15:48 | PC.NURSE ---
Pt pulled out second IV of the day
--- NOTE | 2025-04-10 17:03 | PC.NURSE ---
Pt has pulled out 3 IV today PPN is currently paused . Pt is running out of access due to multiple IVs daily. Md Freeman notified.
--- NOTE | 2025-04-10 22:03 | PC.NURSE ---
patient still has no IV access and would not let us put another one. MD Kan notified and aware w/ no response.
[2025-04-11 03:57] VITALS: BP 112/64; PULSE 76; RESP 18; TEMP 36.3; O2SAT 96
[2025-04-11 06:58] LABS: Albumin Level 2.9 g/dL (3.5-5.0); Anion Gap 10 (12-20); Blood Urea Nitrogen 17 mg/dL (9-16); Calcium 8.9 mg/dL (8.4-10.2); Carbon Dioxide 27 mmol/L (22-29); Chloride 106 mmol/L (96-108); Creatinine Clr Calc Pharmacy 97.6; Estimated Glomerular Filt Rate > 60; Magnesium 2.0 mg/dL (1.6-2.6); Potassium 3.8 mmol/L (3.3-5.1); Sodium 139 mmol/L (135-145)
[2025-04-11 08:00] VITALS: BP 141/76; PULSE 77; RESP 16; TEMP 36; O2SAT 96
--- NOTE | 2025-04-11 09:32 | P.PNIM_ITS ---
Subjective Subjective Date of Service: 04/11/25 Interval History: no appetite Physical Exam 2 Exam: Exam: Alert, less communicative but still verbal today, non participatory Vital Signs: Vital Signs: Last Vital Signs Temp 96.8 F 04/11/25 08:00 Pulse 77 04/11/25 08:00 Resp 16 04/11/25 08:00 BP 141/76 H 04/11/25 08:00 Pulse Ox 96 04/11/25 08:00 O2 Del Method Room Air 04/11/25 08:00 O2 Flow Rate 2 04/10/25 12:12 BMI result Body Mass Index 25.7 Objective Data Active Medications Acetaminophen (Acetaminophen 325 Mg Tablet) 650 mg PO Q6H PRN PRN Reason: Pain, Mild 1-3,fever,headache Calcium Carbonate (Calcium Carbonate 750 Mg Tab.Chew) 750 mg PO Q4H PRN PRN Reason: Heartburn Diazepam (Diazepam 10 Mg/2 Ml Cartridge) 4 mg IVPUSH TID [facility] Last Admin: 04/10/25 22:02 Dose: Not Given Documented By: MARIAN Non-Admin Reason: No Access Docusate Sodium (Docusate Sodium 100 Mg Capsule) 100 mg PO BID PRN PRN Reason: Constipation Fondaparinux (Fondaparinux Sodium 2.5 Mg/0.5 Ml Syringe) 2.5 mg SUBCUT Q24H [facility] Last Admin: 04/10/25 16:50 Dose: Not Given Documented By: HEIDI Non-Admin Reason: Patient Refused Guaifenesin (Guaifenesin 200 Mg/10 Ml 10 Ml Liquid) 10 ml PO Q4H PRN PRN Reason: Cough Last Admin: 04/01/25 12:07 Dose: 10 ml Documented By: EMANI Lactated Ringer's (Lr) 1,000 mls @ 50 mls/hr IVCONT .Q20H [facility] Last Admin: 04/11/25 02:26 Dose: Not Given Documented By: MARIAN Non-Admin Reason: No Access Loperamide HCl (Loperamide Hcl 2 Mg Capsule) 2 mg PO Q6H PRN PRN Reason: Diarrhea Magnesium Hydroxide (Milk Of Magnesia 30 Ml Oral.Susp) 30 ml PO DAILY PRN PRN Reason: Constipation Melatonin (Melatonin 3 Mg Tablet) 3 mg PO BEDTIME PRN PRN Reason: Sleep Naloxone HCl (Naloxone Hcl 0.4 Mg/Ml Vial) 0.04 mg IVPUSH Q5M PRN PRN Reason: Excessive sedation or RR < 8 Naloxone HCl (Naloxone Hcl 0.4 Mg/Ml Vial) 0.04 mg IVPUSH Q5M PRN PRN Reason: Excessive sedation or RR < 8 Naloxone HCl (Naloxone Hcl 0.4 Mg/Ml Vial) 0.04 mg IVPUSH Q5M PRN PRN Reason: Excessive sedation or RR < 8 Naloxone HCl (Naloxone Hcl 0.4 Mg/Ml Vial) 0.04 mg IVPUSH Q5M PRN PRN Reason: Excessive sedation or RR < 8 Naloxone HCl (Naloxone Hcl 0.4 Mg/Ml Vial) 0.04 mg IVPUSH Q5M PRN PRN Reason: Excessive sedation or RR < 8 Olanzapine (Olanzapine 10 Mg Vial) 2.5 mg IM BID [facility] Last Admin: 04/10/25 22:40 Dose: Not Given Documented By: MARIAN Non-Admin Reason: Patient Refused Omeprazole (Omeprazole 20 Mg Jose Juan.) 20 mg PO DAILY@0630 [facility] Last Admin: 04/11/25 06:37 Dose: Not Given Documented By: MARIAN Non-Admin Reason: Patient Refused Ondansetron HCl (Ondansetron Hcl 4 Mg/2 Ml Vial) 4 mg IVPUSH Q8H PRN PRN Reason: Nausea and Vomiting Pharmacy Consult (Consult Rx Parenteral Nutrition Ordering) 1 each MISCELLANE DAILY PRN PRN Reason: Consult order Polyethylene Glycol (Polyethylene Glycol 3350 17 Gm Powd.Pack) 17 gm PO DAILY PRN PRN Reason: Constipation Potassium Chloride (Potassium Chloride Packet 20 Meq Packet) 20 meq PO BID [facility] Last Admin: 04/10/25 22:03 Dose: Not Given Documented By: MARIAN Non-Admin Reason: Patient Refused Senna (Sennosides 8.6 Mg Tablet) 17.2 mg PO BEDTIME [facility] Last Admin: 04/10/25 22:03 Dose: Not Given Documented By: MARIAN Non-Admin Reason: Patient Refused Sodium Chloride (0.9 % Sodium Chloride Flush 3 Ml Syringe) 3 ml IVFLUSH QSHIFT [facility] Last Admin: 04/11/25 09:12 Dose: Not Given Documented By: RUBEN Non-Admin Reason: No Access Thiamine HCl (Thiamine Hcl 100 Mg Tablet) 100 mg PO BID [facility] Last Admin: 04/10/25 22:03 Dose: Not Given Documented By: MARIAN Non-Admin Reason: Patient Refused Labs 03/31/25 05:03 04/11/25 06:23 Labs: Laboratory Results - last 24 hr 04/11/25 06:23 Anion Gap 10 L Estim Creat Clear Calc 97.6 Estimated GFR > 60 Random Glucose 95 Calcium 8.9 Phosphorus 3.1 Magnesium 2.0 Albumin 2.9 L Assessment and Plan (1) Catatonia: Status: Acute Plan 69F PMH bipolar, recurrent utis, history of DVT no longer on AC, presented with catatonia bioplar with catatonia and mod preotein calorie malnutrition continue valium, ECTs, monitor strict calorie count - eats well on ECT day, less on non ECT day improving slowly, better on ECT days psych following will hold ppn as diet increasing acute hypoxic respiratory failure due to possible pna completed 1 week merem dvt prophlaxis - [place]ar[place] full code reason for continued hospitalization:still with some catatonia monitoring caloric intake Quality Stroke Does the patient have a stroke diagnosis?: No Reason for No Anti-thrombotic by Day Two: Drug declined by patient VTE Prior VTE?: No VTE Risk Level:: Medical - low VTE Device Contraindication: N/A - Device Ordered VTE Drug Contraindication: N/A - Med Ordered
[2025-04-11 11:18] VITALS: BP 95/71; PULSE 75; RESP 18; TEMP 37.3; O2SAT 98
[2025-04-11 15:24] VITALS: BP 102/65; PULSE 95; RESP 18; TEMP 36.4
--- NOTE | 2025-04-11 15:30 | PC.NURSE ---
Patient allowed CUSTOMS DIRECTOR to obtain afternoon vital signs. Refused SpO2 assessment. Respirations even and unlabored. No signs or symptoms of distress. Denies pain. Patient remains on room air. See vital signs documentation for details. High fall risk interventions in place. Call gomez within reach.
[2025-04-11 20:00] VITALS: BP 116/72; PULSE 94; RESP 18; TEMP 36.6; O2SAT 93
[2025-04-12 06:50] LABS: Albumin Level 3.2 g/dL (3.5-5.0); Anion Gap 14 (12-20); Blood Urea Nitrogen 20 mg/dL (9-16); Calcium 9.2 mg/dL (8.4-10.2); Carbon Dioxide 23 mmol/L (22-29); Chloride 108 mmol/L (96-108); Creatinine Clr Calc Pharmacy 95.7; Estimated Glomerular Filt Rate > 60; Magnesium 2.0 mg/dL (1.6-2.6); Potassium 3.9 mmol/L (3.3-5.1); Sodium 141 mmol/L (135-145)
[2025-04-12 07:20] VITALS: BP 109/63; PULSE 74; RESP 18; TEMP 36; O2SAT 94
[2025-04-12 07:36] VITALS: TEMP 36.5
--- NOTE | 2025-04-12 08:42 | HO.PM.IMPN ---
Subjective Subjective Date of Service: 04/12/25 Interval History: no appetite Physical Exam Exam: Exam: Alert, less communicative but still verbal today, non participatory Vital Signs: Vital Signs: Last Vital Signs Temp 97.7 F 04/12/25 07:36 Pulse 74 04/12/25 07:20 Resp 18 04/12/25 07:20 BP 109/63 04/12/25 07:20 Pulse Ox 94 04/12/25 07:20 O2 Del Method Room Air 04/12/25 07:20 O2 Flow Rate 2 04/10/25 12:12 BMI result Body Mass Index 25.7 Objective Data Active Medications Acetaminophen (Acetaminophen 325 Mg Tablet) 650 mg PO Q6H PRN PRN Reason: Pain, Mild 1-3,fever,headache Calcium Carbonate (Calcium Carbonate 750 Mg Tab.Chew) 750 mg PO Q4H PRN PRN Reason: Heartburn Diazepam (Diazepam 10 Mg/2 Ml Cartridge) 4 mg IVPUSH TID [facility] Last Admin: 04/11/25 22:23 Dose: Not Given Documented By: MARIAN Non-Admin Reason: No Access Docusate Sodium (Docusate Sodium 100 Mg Capsule) 100 mg PO BID PRN PRN Reason: Constipation Fondaparinux (Fondaparinux Sodium 2.5 Mg/0.5 Ml Syringe) 2.5 mg SUBCUT Q24H [facility] Last Admin: 04/11/25 16:58 Dose: Not Given Documented By: RUBEN Non-Admin Reason: Patient Refused Guaifenesin (Guaifenesin 200 Mg/10 Ml 10 Ml Liquid) 10 ml PO Q4H PRN PRN Reason: Cough Last Admin: 04/01/25 12:07 Dose: 10 ml Documented By: EMANI Loperamide HCl (Loperamide Hcl 2 Mg Capsule) 2 mg PO Q6H PRN PRN Reason: Diarrhea Magnesium Hydroxide (Milk Of Magnesia 30 Ml Oral.Susp) 30 ml PO DAILY PRN PRN Reason: Constipation Melatonin (Melatonin 3 Mg Tablet) 3 mg PO BEDTIME PRN PRN Reason: Sleep Naloxone HCl (Naloxone Hcl 0.4 Mg/Ml Vial) 0.04 mg IVPUSH Q5M PRN PRN Reason: Excessive sedation or RR < 8 Naloxone HCl (Naloxone Hcl 0.4 Mg/Ml Vial) 0.04 mg IVPUSH Q5M PRN PRN Reason: Excessive sedation or RR < 8 Naloxone HCl (Naloxone Hcl 0.4 Mg/Ml Vial) 0.04 mg IVPUSH Q5M PRN PRN Reason: Excessive sedation or RR < 8 Naloxone HCl (Naloxone Hcl 0.4 Mg/Ml Vial) 0.04 mg IVPUSH Q5M PRN PRN Reason: Excessive sedation or RR < 8 Naloxone HCl (Naloxone Hcl 0.4 Mg/Ml Vial) 0.04 mg IVPUSH Q5M PRN PRN Reason: Excessive sedation or RR < 8 Olanzapine (Olanzapine 10 Mg Vial) 2.5 mg IM BID [facility] Last Admin: 04/11/25 23:30 Dose: Not Given Documented By: MARIAN Non-Admin Reason: Patient Refused Omeprazole (Omeprazole 20 Mg Capsule.Dr) 20 mg PO DAILY@0630 [facility] Last Admin: 04/12/25 07:25 Dose: Not Given Documented By: RUBEN Non-Admin Reason: Patient Refused Ondansetron HCl (Ondansetron Hcl 4 Mg/2 Ml Vial) 4 mg IVPUSH Q8H PRN PRN Reason: Nausea and Vomiting Polyethylene Glycol (Polyethylene Glycol 3350 17 Gm Powd.Pack) 17 gm PO DAILY PRN PRN Reason: Constipation Potassium Chloride (Potassium Chloride Packet 20 Meq Packet) 20 meq PO BID [facility] Last Admin: 04/11/25 22:23 Dose: Not Given Documented By: MARIAN Non-Admin Reason: Patient Refused Senna (Sennosides 8.6 Mg Tablet) 17.2 mg PO BEDTIME [facility] Last Admin: 04/11/25 22:24 Dose: Not Given Documented By: MARIAN Non-Admin Reason: Patient Refused Sodium Chloride (0.9 % Sodium Chloride Flush 3 Ml Syringe) 3 ml IVFLUSH QSHIFT [facility] Last Admin: 04/12/25 07:26 Dose: Not Given Documented By: RUBEN Non-Admin Reason: No Access Thiamine HCl (Thiamine Hcl 100 Mg Tablet) 100 mg PO BID [facility] Last Admin: 04/11/25 22:24 Dose: Not Given Documented By: MARIAN Non-Admin Reason: Patient Refused Labs 03/31/25 05:03 04/12/25 05:56 Labs: Laboratory Results - last 24 hr 04/12/25 05:56 Anion Gap 14 Estim Creat Clear Calc 95.7 Estimated GFR > 60 Random Glucose 90 Calcium 9.2 Phosphorus 4.0 Magnesium 2.0 Albumin 3.2 L Assessment and Plan (1) Catatonia: Status: Acute Plan 69F PMH bipolar, recurrent utis, history of DVT no longer on AC, presented with catatonia bioplar with catatonia and mod preotein calorie malnutrition continue valium, ECTs, monitor strict calorie count - eats well on ECT day, less on non ECT day improving slowly, better on ECT days psych following will hold ppn as diet increasing acute hypoxic respiratory failure due to possible pna completed 1 week mere dvt prophlaxis - [place]ar[place]ux full code reason for continued hospitalization:still with some catatonia monitoring caloric intake Quality Stroke Does the patient have a stroke diagnosis?: No Reason for No Anti-thrombotic by Day Two: Drug declined by patient VTE Prior VTE?: No VTE Risk Level:: Medical - low VTE Device Contraindication: N/A - Device Ordered VTE Drug Contraindication: N/A - Med Ordered
--- NOTE | 2025-04-12 11:09 | PC.NURSE ---
Addendum entered by Yordy Espitia RN 04/12/25 11:10: Patient refusing foam dressings. Independently repositioning self in bed frequently. Original Note: Patient refusing full skin assessment. T/w was able to visualize coccyx when patient was up to the commode. No redness present. Skin dry and intact.
[2025-04-12 11:20] VITALS: BP 105/59; PULSE 88; RESP 16; TEMP 36.3; O2SAT 97
[2025-04-12 15:33] VITALS: BP 106/65; PULSE 92; RESP 20; TEMP 36.4; O2SAT 94
[2025-04-12 19:27] VITALS: BP 107/65; PULSE 79; RESP 16; TEMP 36.7; O2SAT 95
[2025-04-13 00:01] VITALS: BP 98/50; PULSE 74; RESP 16; TEMP 36.3; O2SAT 97
[2025-04-13 03:29] VITALS: BP 101/59; PULSE 78; RESP 18; TEMP 36.4; O2SAT 98
[2025-04-13 08:00] VITALS: BP 102/64; PULSE 74; RESP 16; TEMP 36.1; O2SAT 96
--- NOTE | 2025-04-13 09:06 | HO.PM.IMPN ---
Subjective Subjective Date of Service: 04/13/25 Interval History: eating today Physical Exam Exam: Exam: Alert, communicative, non participatory Vital Signs: Vital Signs: Last Vital Signs Temp 97.0 F 04/13/25 08:00 Pulse 74 04/13/25 08:00 Resp 16 04/13/25 08:00 BP 102/64 04/13/25 08:00 Pulse Ox 96 04/13/25 08:00 O2 Del Method Room Air 04/13/25 08:00 O2 Flow Rate 2 04/10/25 12:12 BMI result Body Mass Index 25.7 Objective Data Active Medications Acetaminophen (Acetaminophen 325 Mg Tablet) 650 mg PO Q6H PRN PRN Reason: Pain, Mild 1-3,fever,headache Calcium Carbonate (Calcium Carbonate 750 Mg Tab.Chew) 750 mg PO Q4H PRN PRN Reason: Heartburn Diazepam (Diazepam 10 Mg/2 Ml Cartridge) 4 mg IVPUSH TID [facility] Last Admin: 04/13/25 09:04 Dose: Not Given Documented By: RUBEN Non-Admin Reason: No access/patient refused. Docusate Sodium (Docusate Sodium 100 Mg Capsule) 100 mg PO BID PRN PRN Reason: Constipation Fondaparinux (Fondaparinux Sodium 2.5 Mg/0.5 Ml Syringe) 2.5 mg SUBCUT Q24H [facility] Last Admin: 04/12/25 16:23 Dose: Not Given Documented By: MODESTO Non-Admin Reason: Patient Refused Guaifenesin (Guaifenesin 200 Mg/10 Ml 10 Ml Liquid) 10 ml PO Q4H PRN PRN Reason: Cough Last Admin: 04/01/25 12:07 Dose: 10 ml Documented By: EMANI Loperamide HCl (Loperamide Hcl 2 Mg Capsule) 2 mg PO Q6H PRN PRN Reason: Diarrhea Magnesium Hydroxide (Milk Of Magnesia 30 Ml Oral.Susp) 30 ml PO DAILY PRN PRN Reason: Constipation Melatonin (Melatonin 3 Mg Tablet) 3 mg PO BEDTIME PRN PRN Reason: Sleep Naloxone HCl (Naloxone Hcl 0.4 Mg/Ml Vial) 0.04 mg IVPUSH Q5M PRN PRN Reason: Excessive sedation or RR < 8 Naloxone HCl (Naloxone Hcl 0.4 Mg/Ml Vial) 0.04 mg IVPUSH Q5M PRN PRN Reason: Excessive sedation or RR < 8 Naloxone HCl (Naloxone Hcl 0.4 Mg/Ml Vial) 0.04 mg IVPUSH Q5M PRN PRN Reason: Excessive sedation or RR < 8 Naloxone HCl (Naloxone Hcl 0.4 Mg/Ml Vial) 0.04 mg IVPUSH Q5M PRN PRN Reason: Excessive sedation or RR < 8 Naloxone HCl (Naloxone Hcl 0.4 Mg/Ml Vial) 0.04 mg IVPUSH Q5M PRN PRN Reason: Excessive sedation or RR < 8 Olanzapine (Olanzapine 2.5 Mg Tablet) 2.5 mg PO BID [facility] Omeprazole (Omeprazole 20 Mg Capsule.Dr) 20 mg PO DAILY@0630 [facility] Last Admin: 04/13/25 05:14 Dose: 20 mg Documented By: MARIAN Ondansetron HCl (Ondansetron Hcl 4 Mg/2 Ml Vial) 4 mg IVPUSH Q8H PRN PRN Reason: Nausea and Vomiting Polyethylene Glycol (Polyethylene Glycol 3350 17 Gm Powd.Pack) 17 gm PO DAILY PRN PRN Reason: Constipation Potassium Chloride (Potassium Chloride Packet 20 Meq Packet) 20 meq PO BID [facility] Last Admin: 04/12/25 22:47 Dose: Not Given Documented By: MARIAN Non-Admin Reason: Patient Refused Senna (Sennosides 8.6 Mg Tablet) 17.2 mg PO BEDTIME [facility] Last Admin: 04/12/25 22:47 Dose: Not Given Documented By: MARIAN Non-Admin Reason: Patient Refused Sodium Chloride (0.9 % Sodium Chloride Flush 3 Ml Syringe) 3 ml IVFLUSH QSHIFT [facility] Last Admin: 04/13/25 07:20 Dose: Not Given Documented By: RUBEN Non-Admin Reason: No Access Thiamine HCl (Thiamine Hcl 100 Mg Tablet) 100 mg PO BID [facility] Last Admin: 04/12/25 22:47 Dose: Not Given Documented By: MARIAN Non-Admin Reason: Patient Refused Labs 03/31/25 05:03 04/12/25 05:56 Assessment and Plan (1) Catatonia: Status: Acute Plan 69F PMH bipolar, recurrent utis, history of DVT no longer on AC, presented with catatonia bioplar with catatonia and mod preotein calorie malnutrition continue valium, ECTs, monitor strict calorie count - eats well on ECT day, less on non ECT day though this has also been improving improving slowly, better on ECT days psych following now off ppn acute hypoxic respiratory failure due to possible pna completed 1 week russell dvt prophlaxis - fondaparinaux full code reason for continued hospitalization:still with some catatonia, dispo planning Quality Stroke Does the patient have a stroke diagnosis?: No Reason for No Anti-thrombotic by Day Two: Drug declined by patient VTE Prior VTE?: No VTE Risk Level:: Medical - low VTE Device Contraindication: N/A - Device Ordered VTE Drug Contraindication: N/A - Med Ordered
--- NOTE | 2025-04-13 09:53 | MHC.CLN ---
F/U DIET RX: GROUND AND NPO WHEN RECEIVING ECT. PPN ON HOLD SINCE 04/12 SINCE OVERALL PO INTAKE IMPROVING. WILL TAKE 100% OF MEALS AT TIMES. ADDING ENSURE TID TO PROMOTE NUTRITIONAL INTAKE. SUPPLEMENT PROVIDES 1050 KCALS, 60 G PROTEIN. CONTINUE TO FOLLOW FOR PO INTAKE.
--- NOTE | 2025-04-13 12:46 | MHC.SL.SWA ---
Speech Pathologist Impression: Risk of Aspiration, Oral Phase Dysphagia Dysphasia Diet Status: Upgrade to NDD3 Liquid Consistency and Strategies for Safe Swallow: Liquid Intake Recommendation: Thin Solid Food Consistency: Dietary Recommendations: Chopped/Advanced (NDD3) Additional Modifications to Solid Foods: Recommend UPGRADE to CHOPPED/ADVANCED (NDD3), continue on THIN liquids, pills CRUSHED in PUREE, supervise at meals Oral Medication Intake: Crushed with Puree Please contact the pharmacy regarding appropriate crushable or liquid drug formulations that are available whenever modified delivery is recommended. Compensatory Strategies and Precautions to be Taken for Safe Swallow: Sitting Upright (90 deg) Liquids from Cup Small Bites and Sips Alternate Liquids/Solids Supervision While Eating and Drinking for Safe Swallow: Direct Supervision (1:1) Swallowing Recommended Treatments: Compens. Strategy Educat. Recommendation for Speech: Inpatient Speech Therapy Frequency/Duration: Daily M-F Date Range for Service Req: Timeline to reassess: Rubber Stamp Die Inspector Clinican/Clinical Fellow: No Supervisory Statement: I have reviewed and agree with the student/clinical fellow's documentation: N/A Speech Language Pathologist: Carolyn Cabrales M.A., CCC-SCREEN VENT BINDER
--- NOTE | 2025-04-13 14:51 | MHC.CARE ---
Patient evaluated by the CARE Team, she will require an inpatient psychiatric admission. Dr. Freeman updated
[2025-04-13 16:03] VITALS: RESP 19; TEMP 36.6
[2025-04-13 16:34] VITALS: BP 107/61; PULSE 73; RESP 19; TEMP 36.9; O2SAT 99
--- NOTE | 2025-04-13 18:00 | PC.NURSE ---
Approximately 1615- patient complaining of moderate to severe anxiety and requesting medication to feel better . Dr. Freeman notified with plan to order PRN medication. Approximately 1630- patient complaining of shortness of breath and chest pain. Patient calm and laying in bed. Vital signs obtained and stable. Respirations even and unlabored. No visible signs of respiratory distress. Lungs clear throughout with slightly diminished bases. Heart sounds normal. Dr. Freeman made aware. Plan to administer PRN medication and monitor vital signs. Patient educated on importance of monitoring vital signs- verbalized understanding and agreeable to allow staff to obtain them. Patient provided emotional support at bedside by t/w and 1:1 at bedside. PRN ativan administered- see MAR for details. Patient ate 100% of her dinner. Denies chest pain. No further complaints at this time.
[2025-04-13] MEDS: Potassium Chloride Packet 20 MEQ PACKET PO (20:18)
[2025-04-13 23:28] VITALS: BP 111/57; PULSE 74; RESP 16; TEMP 36.8; O2SAT 97
[2025-04-14 06:00] VITALS: BP 108/57; PULSE 70; RESP 14; TEMP 36.7; O2SAT 93
[2025-04-14] MEDS: Potassium Chloride Packet 20 MEQ PACKET PO (07:28)
[2025-04-14 07:50] VITALS: BP 108/56; PULSE 69; RESP 14; TEMP 36.2; O2SAT 95
--- NOTE | 2025-04-14 08:38 | HO.PM.IMPN ---
Subjective Subjective Date of Service: 04/14/25 Interval History: eating today Physical Exam Exam: Exam: Alert, communicative, non participatory Vital Signs: Vital Signs: Last Vital Signs Temp 97.2 F 04/14/25 07:50 Pulse 69 04/14/25 07:50 Resp 14 04/14/25 07:50 BP 108/56 L 04/14/25 07:50 Pulse Ox 95 04/14/25 07:50 O2 Del Method Room Air 04/14/25 07:50 O2 Flow Rate 2 04/10/25 12:12 BMI result Body Mass Index 25.7 Objective Data Active Medications Acetaminophen (Acetaminophen 325 Mg Tablet) 650 mg PO Q6H PRN PRN Reason: Pain, Mild 1-3,fever,headache Calcium Carbonate (Calcium Carbonate 750 Mg Tab.Chew) 750 mg PO Q4H PRN PRN Reason: Heartburn Diazepam (Diazepam 10 Mg/2 Ml Cartridge) 4 mg IVPUSH TID [facility] Last Admin: 04/14/25 07:26 Dose: Not Given Documented By: SAMARA Non-Admin Reason: No Access Docusate Sodium (Docusate Sodium 100 Mg Capsule) 100 mg PO BID PRN PRN Reason: Constipation Fondaparinux (Fondaparinux Sodium 2.5 Mg/0.5 Ml Syringe) 2.5 mg SUBCUT Q24H [facility] Last Admin: 04/13/25 17:03 Dose: 2.5 mg Documented By: RUBEN Guaifenesin (Guaifenesin 200 Mg/10 Ml 10 Ml Liquid) 10 ml PO Q4H PRN PRN Reason: Cough Last Admin: 04/01/25 12:07 Dose: 10 ml Documented By: EMANI Loperamide HCl (Loperamide Hcl 2 Mg Capsule) 2 mg PO Q6H PRN PRN Reason: Diarrhea Lorazepam (Lorazepam 1 Mg Tablet) 1 mg PO Q4H PRN PRN Reason: Anxiety Last Admin: 04/13/25 17:03 Dose: 1 mg Documented By: RUBEN Magnesium Hydroxide (Milk Of Magnesia 30 Ml Oral.Susp) 30 ml PO DAILY PRN PRN Reason: Constipation Melatonin (Melatonin 3 Mg Tablet) 3 mg PO BEDTIME PRN PRN Reason: Sleep Last Admin: 04/13/25 20:18 Dose: 3 mg Documented By: AAYUSH Naloxone HCl (Naloxone Hcl 0.4 Mg/Ml Vial) 0.04 mg IVPUSH Q5M PRN PRN Reason: Excessive sedation or RR < 8 Naloxone HCl (Naloxone Hcl 0.4 Mg/Ml Vial) 0.04 mg IVPUSH Q5M PRN PRN Reason: Excessive sedation or RR < 8 Naloxone HCl (Naloxone Hcl 0.4 Mg/Ml Vial) 0.04 mg IVPUSH Q5M PRN PRN Reason: Excessive sedation or RR < 8 Naloxone HCl (Naloxone Hcl 0.4 Mg/Ml Vial) 0.04 mg IVPUSH Q5M PRN PRN Reason: Excessive sedation or RR < 8 Naloxone HCl (Naloxone Hcl 0.4 Mg/Ml Vial) 0.04 mg IVPUSH Q5M PRN PRN Reason: Excessive sedation or RR < 8 Olanzapine (Olanzapine 2.5 Mg Tablet) 2.5 mg PO BID [facility] Last Admin: 04/14/25 07:26 Dose: 2.5 mg Documented By: SAMARA Omeprazole (Omeprazole 20 Mg Capsule.Dr) 20 mg PO DAILY@0630 [facility] Last Admin: 04/14/25 05:31 Dose: 20 mg Documented By: AAYUSH Ondansetron HCl (Ondansetron Hcl 4 Mg/2 Ml Vial) 4 mg IVPUSH Q8H PRN PRN Reason: Nausea and Vomiting Polyethylene Glycol (Polyethylene Glycol 3350 17 Gm Powd.Pack) 17 gm PO DAILY PRN PRN Reason: Constipation Potassium Chloride (Potassium Chloride Packet 20 Meq Packet) 20 meq PO BID [facility] Last Admin: 04/14/25 07:28 Dose: 20 meq Documented By: SAMARA Senna (Sennosides 8.6 Mg Tablet) 17.2 mg PO BEDTIME [facility] Last Admin: 04/13/25 20:18 Dose: 17.2 mg Documented By: AAYUSH Sodium Chloride (0.9 % Sodium Chloride Flush 3 Ml Syringe) [facility] Last Admin: 04/14/25 07:26 Dose: Not Given Documented By: SAMARA Non-Admin Reason: No Access Thiamine HCl (Thiamine Hcl 100 Mg Tablet) 100 mg PO BID [facility] Last Admin: 04/14/25 07:26 Dose: 100 mg Documented By: SAMARA Labs 03/31/25 05:03 04/12/25 05:56 Assessment and Plan (1) Catatonia: Status: Acute Plan 69F PMH bipolar, recurrent utis, history of DVT no longer on AC, presented with catatonia bioplar with catatonia and mod preotein calorie malnutrition continue valium, ECTs, monitor strict calorie count - eats well on ECT day, less on non ECT day though this has also been improving improving, better on ECT days psych following now off ppn plan to discharge to psych when available acute hypoxic respiratory failure due to possible pna completed 1 week mere dvt prophlaxis - fondaparinaux full code reason for continued hospitalization: dispo planning Quality Stroke Does the patient have a stroke diagnosis?: No Reason for No Anti-thrombotic by Day Two: Drug declined by patient VTE Prior VTE?: No VTE Risk Level:: Medical - low VTE Device Contraindication: N/A - Device Ordered VTE Drug Contraindication: N/A - Med Ordered
--- NOTE | 2025-04-14 08:43 | P.DS_ITS ---
DS: Providers Provider Date of Service: 04/14/25 Date of admission: 03/21/25 19:08 Date of discharge: 04/14/25 Primary care physician: Theresa Nelson MD Consults: 03/21/25 19:35 Consult to Psychiatry Routine Consulting Provider: [facility] Psych Covering Reason for consultation: from [facility] non verbal X3wks, ? cataonia Has provider been notified: No 03/24/25 12:17 Inpt CARE Team Crisis Consult Stat Comment: Reason for consultation: Medically Cleared. Need Inpatient Psych. 03/26/25 09:42 Consult to Psychiatry Routine Consulting Provider: [facility] Psych Covering Reason for consultation: reconsult for management of catatonia Has provider been notified: No 03/31/25 14:48 Consult to Wound Care Routine Reason for consultation: Redness to buttock 04/06/25 08:24 Consult to Pulmonology Routine Consulting Provider: [facility] Pulmonology Services Reason for consultation: Building Equipment Inspector e for ECT Has provider been notified: No 04/09/25 00:27 Consult to Wound Care Routine Reason for consultation: redness to buttocks 04/13/25 09:07 Inpt CARE Team Crisis Consult Routine Comment: Reason for consultation: catatonia, now eating better, ?transfer to [facility] DS: Diagnosis Discharge Diagnosis (1) Catatonia: Status: Acute DS: Summary Hospital Course Hospital Course: from initial hpi: 69 yo female currently nonverbal and unable to provide any HPI, PMH has been diagnosed with UTI in ED and request for admission has been made. 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 This account underwriter did speak to patient's, sister listed as primary contact Jennifer and patient has been at [facility] now for approximately 3 weeks. Patient originally seen in [facility] after patient called 911. Prior to that patient had a puppy but could no longer care for the puppy and the puppy was taken away. Patient appeared to have a breakdown and was calling sister incessantly regarding the puppy and apparently called 911 out of distress. Patient was transferred to [facility] on a section 12 from [facility] for MDD, intrusive thoughts and auditory hallucinations. [facility] from [facility] on 03/16/2025 and was diagnosed with a UTI and was discharged back to [facility] on oral antibiotics. Initial concern was patient was not eating for 3-4 days prior to being seen in the ED. At that time, patient was verbal and was stating she had pain everywhere. Patient has refused oral antibiotics at [facility]. Patient then returned to the ED 03/20/2025 status post a fall with increased confusion. Workup in the ED was unremarkable aside from the known UTI. Patient was discharged back to [facility] and was started on Ceftin po and again patient refused antibiotics. Patient does not have a Salomon in place. Patient does not have a guardian. Patient is seen for admission and presents in a catatonic state. Patient is mute and appears to be in a state of stupor. Patient appears stiff lying on her back with minimal movement. Patient is making eye contact but does not respond appropriately. Patient appears to be able to protect her airway but risk for aspiration seems high. Patient has not received any benzodiazepines at this time. Per patient's sister Jennifer, patient had been on Seroquel and was doing very well for approximately 5 years until the recent incident with a puppy. At [facility], the psychiatrist had mentioned a new medication that they were considering but patient had not yet started because she was refusing oral medications. Patient currently has a one-to-one in place in the ED hospital course: Patient was admitted for bipolar disorder with catatonia moderate protein calorie malnutrition. Was treated with IV Valium, multiple ECTs, was supported with parenteral nutrition. Slowly patient had improvement, became more verbal, more participatory and diet significantly increased and was able to be weaned off parenteral nutrition. Was seen by Psychiatry who adjusted medications. Patient is still having significant acute psychiatric issues so will be discharged to inpatient psych. During hospitalization patient did have episode of acute hypoxic respiratory failure possibly due to pneumonia and completed 1 week of ertapenem. Time Attestation Discharge Coordination Time (in mins): 33 Quality: Safe Use of Opioids Does Pt have an Active Cancer Diagnosis on the Problem List?: No Quality: Stroke Does the patient have a stroke diagnosis?: No Physical Exam Exam: Exam: Alert, communicative, non participatory Vital Signs: Vital Signs: Last Vital Signs Temp 97.2 F 04/14/25 07:50 Pulse 69 04/14/25 07:50 Resp 14 04/14/25 07:50 BP 108/56 L 04/14/25 07:50 Pulse Ox 95 04/14/25 07:50 O2 Del Method Room Air 04/14/25 07:50 O2 Flow Rate 2 04/10/25 12:12 BMI result Body Mass Index 25.7 DS: Data Data Completed and Pending Completed studies during hospitalization [Text1]: Procedures Other Electroconvulsive Therapy (04/25/24) Replacement of Left Knee Joint with Synthetic Substitute, Cemented, Open Approach (08/09/21) Transfusion of Nonautologous Red Blood Cells into Peripheral Vein, Percutaneous Approach (08/09/21) Discharge Plan Discharge Anticipated Discharge Date/Time: 04/14/25 08:39 Patient Disposition: Xfer Psychiatric Hosp Discharge Diagnosis: catatonia Referrals: Theresa Nelson MD [Primary Care Provider, Internal Medicine] - 1 Week Discharge Medications: New olanzapine 2.5 mg Tablet 2.5 mg PO BID Qty: 0 0RF Continued thiamine HCl (vitamin B1) [Vitamin B-1] 100 mg tablet 100 mg PO BID 30 Days Qty: 60 0RF docusate sodium 100 mg capsule 1 cap PO BID PRN (Reason: Constipation) ondansetron HCl 4 mg Tablet 4 mg PO Q6H PRN (Reason: Nausea And Vomiting) loperamide 2 mg Tablet 2 mg PO Q6H PRN (Reason: Diarrhea) melatonin 3 mg Tablet 3 mg PO BEDTIME PRN (Reason: Sleep) lorazepam 0.5 mg Tablet 0.5 mg PO TID pantoprazole 40 mg Tablet,Delayed Release (Dr/Ec) 40 mg PO DAILY@0630 Discontinued loratadine 10 mg Tablet 10 mg PO DAILY 30 Days Qty: 30 0RF benztropine 0.5 mg tablet 0.5 mg PO Q12H hydroxyzine HCl 25 mg tablet 50 mg PO Q4H PRN (Reason: Anxiety) ibuprofen 400 mg Tablet 400 mg PO Q8H PRN (Reason: Pain) mirtazapine 15 mg Tablet 15 mg PO BEDTIME nitrofurantoin monohyd/m-cryst [Macrobid] 100 mg Capsule 100 mg PO BID Rx Instructions: FOR 5 DAYS, STARTED ON 03/16/25 quetiapine 50 mg Tablet 50 mg PO BID quetiapine 400 mg Tablet 400 mg PO BEDTIME Diet: NDD3 solids, thin liq Activity on Discharge: As tolerated Stand Alone Forms: Patient Portal Discharge page Print Language: Tunisian Care Plan Goals: manage catatonia Health Concerns: catatonia Plan of Treatment: transfer to psych Assessment: see above
--- NOTE | 2025-04-14 12:37 | MHC.CM.PN ---
IMM 04/16/25 Patient has been cleared medically for discharge. She qualifies for IPLOC. She has been transferred to [facility] @ [facility].
--- NOTE | 2025-04-14 13:01 | HO.WOUND ---
Wound Consult: Follow up 69yr old? female admitted to [facility] on 03/21/25 19:08- See progress notes and H&P for detailed history.? Wound consult placed for redness to buttock. ? Re-eval today, improving and not evolving, no new topical recommendations at this time, wound care will follow. ZEINA Mattress in use - Patient remains nutritionally compromised nutrition following patient appears cachectic and overall thin. She is noted to have psoriatric skin lesions on her face and arms. Sacrum / Buttock 03/31/25 Sacrum/buttock 04/01/25 04/02/25 04/03/25 04/06/25 04/09/25 04/14/25 Etiology: ?Redness Wound Bed: intact redness blanchable tissue - improved from previous assessment - irregular and not located over bony prominence, dark areas are darker in appearance but irregular in texture firm abrasion like pimples not consistent with pressure injury at this time Drainage / Odor: None Edges: ? irregular Annel wound: improving ?redness No Induration, Fluctuance or Warmth noted Goals of Treatment: ? off load pressure foam dressing applied Recommendations: 1. Turn and Reposition every 2 hours and as needed for patient comfort.? Use pillows or wedges to support off loading positions. 2. Off Load all bony prominences with use of pillows and heel boots if needed.? Apply Preventative foams where needed. ? 3. Monitor for incontinence and moisture control, use barrier creams when needed for prevention and treatment. 4. Provide adequate and supplemental nutrition.? 5. Continue low air loss mattress. 6. When applicable maintain blood glucose levels per Providers order. Buttock and Sacrum - Off Load Pressure with Q2 hr turns and use of pillows - Routine cleansing.? Apply skin prep allow to dry.? Cover with foam dressing to aid in off loading and protection from friction. Change every 3 days and PRN. Bilateral Heels? - Elevate heels off of bed surface with pillows.? Float heels off of pillows.? Apply skin prep allow to dry.? Apply heel foam dressings, peel back and assess Q shift and change every 5-7 days and PRN. Re-consult wound care Nurse for wound deterioration or wound changes.
--- NOTE | 2025-04-30 19:37 | PM.PSYCN ---
History of Present Illness Chief Complaint: Pulmonary periprocedural risk assessment HPI Past Psychiatric History: Inpt: [facility] [place] 09/09/2021 (catatonia), 11/03/2023; 12/24/23; 06/10/24. 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 Currently is receiving ECT treatment. -Per sister, pt has had depression since her early 20s and has suffered from unspecified chronic pain, surgeries. -Hx of multiple psych admissions to [facility] Past medication trials: seroquel, paliperidone, vraylar. [facility] Medical History Delirium due to another medical condition History of skin cancer Hx of bladder problems VITO (generalized anxiety disorder) Murmur, cardiac Hx of thyroid nodule Osteopenia Hx of skin cancer, basal cell Seasonal allergies Insomnia Constipation GERD (gastroesophageal reflux disease) Anxiety History of electroconvulsive therapy Bipolar 1 disorder Surgical History Hx of colonoscopy H/O elbow surgery History of back surgery Family History: -Depression. In 1998 her great grandfather hung himself. Social History: -Pt has never been , no children. Dog recently . -Pt's mother (age 88), sister, and brother are involved with pt's care. -She graduated h.s. And has bachelors in psychology. She worked at [facility]. Trauma History: deferred. Not able to obtain d/t clinical presentation Diagnostics Vital Signs (24Hr): BMI result Body Mass Index 25.7 Labs 03/31/25 05:03 04/12/25 05:56 Medications Allergies Allergies Allergy/AdvReac Type Severity Reaction Status Date / Time bee pollen Allergy Severe Anaphylaxis Verified 03/21/25 14:48 levofloxacin (From Levaquin) Allergy Severe Itching Verified 03/21/25 14:48 enoxaparin (From Lovenox) Allergy Intermediate Rash Verified 03/21/25 14:48 Seasonal Allergies Allergy Mild Runny Nose Verified 03/21/25 14:48 venlafaxine (From Effexor) Allergy Mild Constipatio Verified 03/21/25 14:48 n Penicillins Allergy Unknown Unknown Verified 03/21/25 14:48 Assessment & Plan Total time managing care of this patient today ____ minutes.
--- NOTE | 2025-05-01 23:01 | HO.PSYCHPN ---
Subjective Subjective Date of Service: 05/01/25 Reason For Visit: Pulmonary periprocedural risk assessment Subjective Notes: Conditional Voluntary Healthcare Proxy: Yes Interim History: Pt tolerating ect has concerns regarding referral to rest home setting . Periods of irritability dyphoria . Eating well sleep ok tolerated ect today Mental Status Exam Mental Status Exam Patient Appearance: Unkempt Level of Consciousness: Awake Mood Description: Apprehensive Affect Description: Depressed and Apprehensive Speech Pattern: Clear Memory Description: Episodic Impaired Hallucinations: None Thought Process: Rumination Thought Content: positive for [place] Depressive Symptoms: Increased Anxiety Judgement: Fair Diagnostics Vital Signs (24Hr): BMI result Body Mass Index 25.7 Labs 03/31/25 05:03 04/12/25 05:56 Medications Allergies Allergies Allergy/AdvReac Type Severity Reaction Status Date / Time bee pollen Allergy Severe Anaphylaxis Verified 03/21/25 14:48 levofloxacin (From Levaquin) Allergy Severe Itching Verified 03/21/25 14:48 enoxaparin (From Lovenox) Allergy Intermediate Rash Verified 03/21/25 14:48 Seasonal Allergies Allergy Mild Runny Nose Verified 03/21/25 14:48 venlafaxine (From Effexor) Allergy Mild Constipatio Verified 03/21/25 14:48 n Penicillins Allergy Unknown Unknown Verified 03/21/25 14:48 Assessment & Plan Assessment & Plan (1) Bipolar 1 disorder, depressed, severe: Status: Acute Code(s): F31.4 - Bipolar disorder, current episode depressed, severe, without psychotic features (2) Anxiety: Status: Acute Code(s): F41.9 - Anxiety disorder, unspecified (3) Catatonia: Status: Acute Code(s): F06.1 - Catatonic disorder due to known physiological condition Plan The patient is a 69-year-old female, currently nonverbal and unable to provide a history. She was diagnosed with a urinary tract infection in the ED, and admission has been requested. Chart review reveals a past medical history significant for recurrent UTIs, bipolar I disorder with depression, osteoarthritis, status post cardiac catheterization, anxiety, GERD, insomnia, osteopenia, and a prior DVT of the left tibial vein (no longer on anticoagulation). At [facility], she has been noncompliant with oral medications and has had poor oral nutritional intake for over one week. Urinary Tract Infection Urine culture grew?Aerococcus urinae; sensitivities are not routinely performed. Continue ceftriaxone for now, stop Ceftriaxone after today for 7 days of AB Consider transition to oral antibiotics if the patient is clinically stable and able to tolerate oral intake. Catatonia. The patient presented with decompensated bipolar disorder, altered mental status, and catatonia, refusing medications, food, and interventions. She has shown improvement since started benzodiazepine (Valium) IV administration. If able to tolerate oral intake, we will transition to Ativan, which is preferred as first-line therapy for catatonia. Current treatment with Valium will be continued per Psychiatry recommendations, along with other recommendation per Psych (see Psych note). Given her history of positive response, ECT will ultimately be needed. Once medically stabilized, she will require psychiatric admission for further management--discussed with Psych team.. Minimize sedation if too somnolent. She is medically optimized for ECT, no further tesing is indicated at this time, and will get a routine ECG Hypoxia with O2 sat of 90 on room air, likely from atelectasis and sedation Xray 03/29.. atelectatis,. Incentive spirometry use when awake enough Already on ceftriaxone mild malnutrition, nutritional consult continue ivf for now Started PPN 03/29 HypOkalemia, corrected History of DVT left lower extremity Patient is not on anticoagulation No evidence of DVT at this time Patient can not take Lovenox or heparin due to allergy/rash SCDs ordered, and added Arixtra GERD PPI DVT prophylaxis: SCD, Arixtra Full Code status 03/30/2025 Patient lethargic generally not ambulating catatonia present not responding to benzodiazepines history of good response to ECT case reviewed with healthcare proxy who agrees with treatment plan ECT. Without treatment patient at risk of pulmonary embolism aspiration has had severe weight loss. 04/16: Continue current treatment regimen. Encouraged to use her walker for ambulation at all times. Verbalized understanding and agrees with the plan. 04/17 missed ECT today since she ate breakfast; also had a witnessed fall but patient said she did not hit her head, neuro checks unremarkable. Patient showing some signs of improvement and more organized in speech today. Discussed ECT with her and she seemed to accept that she is better for said okay to continuing 04/18/25: Patient slept for 7 hours, compliant with medications, remain on 1-1 for for risk. Reports passive SI, reports heartburn. Given Tums, and other PRNs for anxiety, racing thoughts, severe anxiety. Usually lies a lot of PRNs. She is negative, not future focus I do not want to be here. Nobody helping me . U/A on 04/17/25 seemed fine. No UTI. Given extra Ativan 1mg and Zyprexa 5mg x1 today for severe anxiety and racing thoughts. 04/19/25: Patient slept better, remain on 1-1. No falls. Patient is negative, feeling like she is dying and not getting better. Passive SI I do not want to live anymore. I do not want to be here. I think I am going to hell . Patient does not want to having ECT tomorrow is not helping me. Make me worse . Reports depression anxiety. Patient encouraged to eat, need lots of direction and encouragement, and assurance. However, overall, patient is better than yesterday. 04/20 still disorganized, but steadily improving; continue tx plan 04/21 Were organized tolerating ECT continue ECT course improved ambulation Plan: 04/23/25 Cont ect inc abilify prilosec for reflux 04/24/25 Pt tolerated todays ect no psychosis dysphoric irritable but much improved carafate and prilosec for gerd inc abilify 10 mg ect note reviewed dr holden 04/25: continue current management and treatment plan. 04/26: Start Prilosec 20 mg daily. Otherwise continue current management and treatment plan. 04/27/[address] increase Prilosec to 20 b.i.d. secondary to reflux Abilify discontinued secondary to irritability akathisia Vraylar started 04/28/25 Pt improving less labile on vraylar inc to 3 mg if lucrecia can inc further taper ect 04/30/2025 Patient denied being her meds a to admission does state that at a daily visiting nurse. Was on Seroquel prior to admission. Patient on Vraylar seems appropriate for bipolar mixed states depression. Still complains of anxiety has irritability consider Depakote ECT for the 05/01/25 Cont ect vraylar extensive d/c planning Patient educated on: ECT Informed Consent: further education needed Reason for continued inpatient stay Substantial Risk for: inability to function and rapid decompensation Time Spent With Patient Time: Total time managing care of this patient today ____ minutes.
== END 2025-04-14 12:32 | DRG 689 ==
LOC: HO.ED 19:07 → HO.EDOVER 19:12 → HO.S3 03-22 07:31
PROVIDERS: Internal Medicine; Physician Assistant Medical; Psychiatry & Neurology Psychiatry; Social Worker; Admitting Provider Nurse Practitioner Family; Emergency Provider Emergency Medicine; PCP Family Medicine; Visit Provider Internal Medicine
PROC: GZB4ZZZ Other Electroconvulsive Therapy (ICD-10-PCS; CPT 90870; principal; 2025-04-01 08:30)
DX: N39.0 Urinary tract infection, site not specified (principal); J18.9 Pneumonia, unspecified organism; J96.01 Acute respiratory failure with hypoxia; F05 Delirium due to known physiological condition; J98.11 Atelectasis; E44.0 Moderate protein-calorie malnutrition; E87.6 Hypokalemia; B96.89 Other specified bacterial agents as the cause of diseases classified elsewhere; F06.1 Catatonic disorder due to known physiological condition; T36.1X6A Underdosing of cephalosporins and other beta-lactam antibiotics, initial encounter; Z91.128 Patient's intentional underdosing of medication regimen for other reason; F31.9 Bipolar disorder, unspecified; K21.9 Gastro-esophageal reflux disease without esophagitis; Z68.25 Body mass index [BMI] 25.0-25.9, adult; Z86.718 Personal history of other venous thrombosis and embolism; Z79.899 Other long term (current) drug therapy
CPT/HCPCS: 36415; 70450; 71045; 80048; 80051; 80053; 80061; 80307; 81001; 82040; 82140; 82550; 83036; 83605; 83735; 83880; 84100; 84132; 84478; 85025; 85027; 87040; 87086; 87088; 90870; 92526; 92610; 93005; 94640; 97163; 99285; J0131; J0330; J0696; J1200; J1596; J1652; J1805; J2185; J2359; J2470; J2704; J3360; J3475; J3480; J7120; S9485

== ENCOUNTER → 2025-03-21 15:00 | Outpatient (BNV) | payer OTHER, SELFPAY | PROVIDERS: Admitting Provider Nurse Practitioner Family; Emergency Provider Emergency Medicine; Visit Provider Internal Medicine | DX: R94.31 Abnormal electrocardiogram [ECG] [EKG] (principal); R41.82 Altered mental status, unspecified | CPT/HCPCS: 93010 ==

== ENCOUNTER → 2025-03-21 15:03 | Outpatient (BNV) | payer OTHER, SELFPAY | PROVIDERS: Emergency Provider Emergency Medicine; Visit Provider Radiology Diagnostic Radiology | DX: R41.82 Altered mental status, unspecified (principal) | CPT/HCPCS: 70450 ==

== ENCOUNTER 2025-03-21 19:08 | Outpatient (BNV) | payer OTHER, SELFPAY | END 2025-04-03 18:07 | PROVIDERS: Admitting Provider Nurse Practitioner Family; Emergency Provider Emergency Medicine; PCP Family Medicine; Visit Provider Radiology Diagnostic Radiology | DX: R06.02 Shortness of breath (principal) | CPT/HCPCS: 71045 ==

== ENCOUNTER 2025-03-21 19:08 | Outpatient (BNV) | payer OTHER, SELFPAY | END 2025-03-30 12:08 | PROVIDERS: Admitting Provider Nurse Practitioner Family; Emergency Provider Emergency Medicine; PCP Family Medicine; Visit Provider Internal Medicine | DX: R94.31 Abnormal electrocardiogram [ECG] [EKG] (principal); Z01.818 Encounter for other preprocedural examination | CPT/HCPCS: 93010 ==

== ENCOUNTER 2025-03-21 19:08 | Outpatient (BNV) | payer OTHER, SELFPAY | END 2025-03-29 13:51 | PROVIDERS: Admitting Provider Nurse Practitioner Family; Emergency Provider Emergency Medicine; PCP Family Medicine; Visit Provider Nuclear Medicine | DX: R09.02 Hypoxemia (principal) | CPT/HCPCS: 71045 ==

== ENCOUNTER → 2025-03-21 19:08 | Outpatient (BNV) | payer OTHER, SELFPAY | PROVIDERS: Admitting Provider Nurse Practitioner Family; Emergency Provider Emergency Medicine; Visit Provider Psychiatry & Neurology Psychiatry | DX: F06.1 Catatonic disorder due to known physiological condition (principal) | CPT/HCPCS: 99222; 99223; 99231; 99232 ==

== ENCOUNTER → 2025-03-21 19:08 | Outpatient (BNV) | payer OTHER, SELFPAY | PROVIDERS: Admitting Provider Nurse Practitioner Family; Emergency Provider Emergency Medicine; PCP Family Medicine; Visit Provider Internal Medicine Pulmonary Disease | DX: Z01.811 Encounter for preprocedural respiratory examination (principal) | CPT/HCPCS: 99222 ==

== ENCOUNTER → 2025-03-21 19:08 | Outpatient (BNV) | payer OTHER, SELFPAY | PROVIDERS: Admitting Provider Nurse Practitioner Family; Emergency Provider Emergency Medicine; Visit Provider Nurse Practitioner Family | DX: F31.9 Bipolar disorder, unspecified (principal); F41.9 Anxiety disorder, unspecified; F31.4 Bipolar disorder, current episode depressed, severe, without psychotic features | CPT/HCPCS: 99222; 99232; 99233; 99499 ==

== ENCOUNTER → 2025-03-21 19:08 | Outpatient (BNV) | payer OTHER, SELFPAY | PROVIDERS: Admitting Provider Nurse Practitioner Family; Emergency Provider Emergency Medicine; PCP Family Medicine; Visit Provider Psychiatry & Neurology Psychiatry | DX: F06.1 Catatonic disorder due to known physiological condition (principal) | CPT/HCPCS: 90870 ==

== ENCOUNTER 2025-04-14 11:38 | Inpatient (IN) | payer OTHER, SELFPAY ==
--- NOTE | ~2025-04-14 | CT_ITS ---
EXAMINATION: CT HEAD WITHOUT IV CONTRAST HISTORY: unwitnessed fall, head strike. TECHNIQUE: Unenhanced helical CT of the head was performed per standard departmental protocol. Coronal and sagittal reformats of the head were also evaluated. One or more of the following techniques was used for dose reduction: Automated exposure control, adjustment of the mA and/or kV according to patient size, use of iterative reconstruction technique. DLP: 807 mGy-cm COMPARISON: Previous head CT most recent March 2025 FINDINGS: BRAIN: There is no evidence of an extra-axial collection. There is no evidence of intra or extra-axial hemorrhage. The ventricles and extra-axial CSF spaces are stable. There is nonspecific periventricular white matter disease similar to previous exam, again most frequently related to small vessel disease. No mass, mass effect or infarct. SINUSES: The visualized paranasal sinuses are clear. The mastoid air cells and middle ear cavities are well pneumatized. ORBITS: The visualized orbits are unremarkable. BONES/SOFT TISSUES: The extracranial soft tissues are unremarkable. The calvarium is intact. No fracture. No suspicious lytic or sclerotic lesions. CT/CT head/brain wo IV con IMPRESSION: Stable exam. No acute intracranial findings. Electronically signed by: Massiel Tucker MD 04/17/2025 10:22 AM EDT
[2025-04-14 12:55] VITALS: BP 105/65; PULSE 85; RESP 18; TEMP 37.3; O2SAT 93
--- OUTSIDE RECORDS SUMMARY | 2025-04-14 15:30 | XMS_ITS | Patient Health Record ---
Author Organization [facility] Address [address] [place] [address] Care Team Providers Care Process Planner Name Role Phone Omar Theresa Primary Care Provider Cesar Abebe Jr Unavailable [phone] Allergies Allergen (clinical drug ingredient) Drug/Non Drug [...] at 5:00 p.m. the day before the procedure; Duration: 1 day 05/16/2019 Active SEROquel Active Docusate Sodium Acti ve Immunizations Vaccine Route Administration Date Status Comme nts Influenza Unknown 04/01/2019 Administered Problems Problem Type SNOMED Code ICD Code Onset Dates Problem Status W/U Status Risk Notes Problem Esophageal reflux (162062170) Esophageal reflux (530.81) Active confirmed Problem Colon cancer screening (115361624) Colon cancer screening (Z12.11) Active confirmed Problem Gastroesophageal reflux disease without esophagitis (959647500) Gastroesophageal reflux disease without esophagitis (K21.9) Active confirmed Problem Drug-induced constipation (14491633) Drug-induced constipation (K59.03) Active confirmed Plan Of Treatment Future Test Test Name Order Date COLONOSCOPY 05/16/2019 Insurance Providers Payer Name Payer Address Payer Phone Subscriber Number Group Number Insured Name Patient Relationship to Insured Coverage Start Date Coverage End Date [facility] [address] [place] [phone] [id number] KYLIE MORFIN Self - patient is the insured MEDICARE OF [place] [address] [place] [address] [id number] KYLIE MORFIN Self - patient is the insured MEDICAID OF [facility] [address] [place] [address] [phone] [id number] KYLIE MORFIN Self - patient is the insured Medical (General) History Medical History History ICD Code bipolar disorder 1 skin cancer esophageal reflux osteoarthritis constipation Surgical History Surgery Date(Month/Year) back surgery, kyphoplasty skin cancer removal on face
--- OUTSIDE RECORDS SUMMARY | 2025-04-14 15:30 | XMS_ITS | Encounter Summary ---
Author Organization [facility] Address [address] [place] [address] [place] [phone] Phone Care Team Providers Care Drying Machine Receiver Name Role Phone Theresa Nelson MD Primary Care Provider [phone] Encounter Details Date Type Department Care Team (Late st Contact Info) Description 10/26/2023 Procedure Pass [facility], [facility] [address] [place] [address] Social History Tobacco Use Types Packs/Day Years [...] on filedocumented in this encounter Care Teams Drying Machine Receiver Relationship Specialty Start Date End Date Theresa Nelson MD [address] [place] [address] [email or web address] PCP - General 07/05/17 documented as of this encounter Additional Source Comments The information contained in this document represents components of the legal health record. It is not the complete legal health record.[facility]
--- OUTSIDE RECORDS SUMMARY | 2025-04-14 15:30 | XMS_ITS | Encounter Summary ---
Author Organization [facility] Address [address] [facility] [address] [place] [address] Phone Care Team Providers Care Motorcycle Riding Instructor Name Role Phone Theresa Nelson MD Primary Care Provider Encounter Details Date Type Department Care Team (Late st Contact Info) Description 02/16/2025 Procedure Pass [facility], Ct Scan - [facility] [address] [place] [address] Social History Tobacco Use Types Packs/Day Years [...] 02/17/2025 10:56 AM Aleena Montano RN * [place] Suicide Severity Rating Scale (Screener/Recent Self-Report) Question [...] on filedocumented in this encounter Care Teams Motorcycle Riding Instructor Relationship Specialty Start Date End Date Theresa Nelson MD [address] [place] [address] [email or web address] PCP - General 07/05/17 documented as of this encounter Additional Source Comments The information contained in this document represents components of the legal health record. It is not the complete legal health record.[facility]
--- OUTSIDE RECORDS SUMMARY | 2025-04-14 15:30 | XMS_ITS | Clinical Summary ---
Author Organization [facility] Address [address] [place] [address] Phone Care Team Providers Care Tube Lancer Name Role Phone Theresa Nelson MD Primary [...] 02/20/2025 11:23 AM EDT Emergency [facility] [address] [place] [address] Hari Kaminski MD Kanter, Carolyn R, MD Brewer, Allison V, MD Andrade, Olyn Amanda, MD Savage, Justin G, DO Griffith, Andrew Thomas Liao, MD Devries, Miles Alaniz MD [facility]: [facility] 02/16/2025 Procedure Pass [facility], Ct Scan - [address] [address] 02/16/2025 Procedure Pass [facility], Ct Scan - [address] [address] from Last 3 Months Immunizations Immunization Administration [...] BPM [facility] Atrial Rate 89 BPM [facility] [place] Interval 136 ms [facility] QRS Duration 70 ms [facility] QT Interval 374 ms [facility] QTC Interval 455 ms [facility] P [place] 48 degrees [facility] R Wave [place] 32 degrees [facility] T Wave [place] 16 degrees [facility] 02/18/2025 3:07 PM EDT [...] (02/16/2025 10:34 PM EDT) COLOR Yellow Yellow [facility] CLARITY Clear [facility] GLUCOSE Negative Negative [facility] BILI Negative Negative [facility] KETONES 1+(A) Negative [facility] SPECIFIC GRAVITY 1.010 1.005 - 1.030 [facility] BLOOD Trace(A) Negative [facility] PH 8.0 5.0 - 8.0 [facility] Protein-UA Negative Negative [facility] NITRITE Negative Negative [facility] Leukocyte esterase, ur Negative Negative [facility] Urine (Urine) 02/16/2025 10: 34 PM EDT 02/16/2025 11:04 PM EDT us Hari Kaminski MD URINE ORDERABLES Final R esult [address] [address] * Toxicology screen, urine (02/16/2025 10:34 PM EDT) URINE CANNABINOIDS NONE DETECTED NONE DETECTED [facility] Comment:Cutoff: 50 ng/mL URINE COCAINE METAB NONE DETECTED NONE DETECTED [facility] Comment:Cutoff: 300 ng/mL URINE AMPHETAMINES NONE DETECTED NONE DETECTED [facility] Comment:Cutoff: 1000 ng/mL URINE METHADONE NONE DETECTED NONE DETECTED [facility] Comment:Cutoff: 300 ng/mL URINE OPIATES NONE DETECTED NONE DETECTED [facility] Comment:Cutoff: 300 ng/mL URINE PHENCYCLIDINE NONE DETECTED NONE DETECTED [facility] Comment:Cutoff: 25 ng/mL URINE OXYCODONE NONE DETECTED NONE DETECTED [facility] Comment:Cutoff: 300 ng/mL URINE BARBITURATES NONE DETECTED NONE DETECTED [facility] Comment:Cutoff: 200 ng/mL URINE BENZODIAZEPINE NONE DETECTED NONE DETECTED [facility] Comment:Cutoff: 200 ng/mL URINE BUPRENORPHINE NONE DETECTED NONE DETECTED [facility] Comment:Cutoff: 5 ng/mL Fentanyl, urine NONE DETECTED NONE DETECTED [facility] Comment: Cutoff: 5 ng/mL INTERPRETATION FOR TOXICOLOGY PANEL: These results are unconfirmed and should be used for Medical Treatment purposes only. Urine (Urine) 02/16/2025 10: 34 PM EDT 02/16/2025 11:04 PM EDT us Hari Kaminski MD URINE ORDERABLES Final R esult [facility] [address] [place] [address] * XR WRIST 3 OR MORE VIEWS [...] clinician's provided indication for this examination in [facility]: Pain; swelling and pain COMPARISON: Right forearm radiograph from October 24, 2023 Procedure Note Linwood Quinn MD - 02/17/2025 XR WRIST 3 OR MORE VIEWS (RIGHT) Referring clinician's provided indication for this examination in [facility]:Pain; swelling and pain COMPARISON: Right forearm [...] HS Gen5 <6 0 - 9 ng/L [facility] Blood 02/16/2025 9:49 PM EDT 02/16/2025 10:01 PM EDT us Hari Kaminski MD LAB BLOOD ORDERABLES Fin al Result Performing Organization Address City/[facility]/ZIP Co de Phone Number [address] [address] * Ethanol, blood (02/16/2025 8:37 PM EDT) ETHANOL <10 <10 mg/dL [facility] Blood 02/16/2025 8:37 PM EDT 02/16/2025 8:57 PM EDT us Hari Kaminski MD LAB BLOOD ORDERABLES Fin al Result Performing Organization Address [facility] Co de Phone Number [address] [address] * LFTs (hepatic panel) (02/16/2025 8:37 PM EDT) ALKALINE PHOSPHATASE 114 39 - 117 U/L [facility] TOTAL BILIRUBIN <0.2 0.0 - 1.2 mg/dL [facility] DIRECT BILIRUBIN <0.1 0.0 - 0.2 mg/dL [facility] Bilirubin (Indirect) NOT CALCULATED 0 - 1.5 mg/dL [facility] AST 17 0 - 37 U/L [facility] ALT 9 0 - 40 U/L [facility] TOTAL PROTEIN 7.3 6.5 - 8.0 g/dL [facility] ALBUMIN 4.4 3.9 - 4.8 g/dL [facility] GLOBULIN 2.9 1 - 4.8 g/dL [facility] A/G Ratio 1.52 1.00 - 4.80 RATIO [facility] Blood 02/16/2025 8:37 PM EDT 02/16/2025 8:57 PM EDT us Hari Kaminski MD LAB BLOOD ORDERABLES Fin al Result Performing Organization Address City/[facility]/ZIP Co de Phone Number [address] [address] * PT-INR (02/16/2025 8:37 PM EDT) PT 11.8 10.2 - 12.9 sec [facility] INR 1.0 0.9 - 1.1 [facility] Comment:Therapeutic range fo r oral Vitamin K antagonists: 2.0-3.5 Blood 02/16/2025 8:37 PM EDT 02/16/2025 8:57 PM EDT us Hari Kaminski MD LAB BLOOD ORDERABLES Fin al Result [facility] [address] [place] [address] * CBC and differential (02/16/2025 8:37 PM EDT) WBC 7.13 4.00 - 11.00 K/uL [facility] RBC 4.27 4.00 - 5.20 M/uL [facility] HGB 13.0 12.0 - 16.0 g/dL [facility] HCT 39.3 36.0 - 46.0 % [facility] PLT 287 150 - 450 K/uL [facility] MCV 92.0 80.0 - 100.0 fL [facility] MCH 30.4 27.0 - 31.0 pg [facility] MCHC 33.1 32.0 - 36.0 g/dL [facility] RDW 13.3 11.5 - 14.5 % [facility] MPV 8.5 8.4 - 12.0 fL [facility] NRBC 0.00 0.00 /100 WBCs [facility] ABSOLUTE NRBC 0.00 0.00 K/uL [facility] DIFF METHOD Auto [facility] NEUTS 65.2 48.0 - 76.0 % [facility] LYMPHS 25.8 18.0 - 41.0 % [facility] MONOS 7.6 4.0 - 11.0 % [facility] EOS 0.7 0.0 - 5.0 % [facility] BASOS 0.4 0.0 - 1.5 % [facility] Granulocytes, immature (%) 0.3 0.0 - 0.9 % [facility] ABSOLUTE NEUTS 4.65 1.92 - 7.60 K/uL [facility] ABSOLUTE LYMPHS 1.84 0.72 - 4.10 K/uL [facility] ABSOLUTE MONOS 0.54 0.16 - 1.10 K/uL [facility] ABSOLUTE EOS 0.05 0.00 - 0.50 K/uL [facility] ABSOLUTE BASOS 0.03 0.00 - 0.15 K/uL [facility] Granulocytes, immature 0.02 0.00 - 0.09 K/uL [facility] Blood 02/16/2025 8:37 PM EDT 02/16/2025 8:57 PM EDT us Hari Kaminski MD LAB BLOOD ORDERABLES Fin al Result Performing Organization Address [facility]/ZIP Co de Phone Number [address] [address] * Magnesium (02/16/2025 8:37 PM EDT) Pathologist [facility] MAGNESIUM 2.2 1.6 - 2.6 mg/dL [facility] Blood 02/16/2025 8:37 PM EDT 02/16/2025 8:57 PM EDT us Hari Kaminski MD LAB BLOOD ORDERABLES Fin al Result Performing Organization Address [facility]/ZIP Co de Phone Number [address] [address] * (ABNORMAL) Basic metabolic panel (02/16/2025 8:37 PM EDT) SODIUM 138 133 - 146 mmol/L [facility] CHLORIDE 103 96 - 108 mmol/L [facility] POTASSIUM 3.7 3.3 - 5.1 mmol/L [facility] CO2 23 21 - 35 mmol/L [facility] BUN 15 6 - 19 mg/dL [facility] CREATININE 0.70 0.5 - 1.5 mg/dL [facility] GLUCOSE 110(H) 70 - 99 mg/dL [facility] CALCIUM 9.9 8.4 - 10.3 mg/dL [facility] EGFR 95 >59 mL/min/1.7 3m2 [facility] Comment:Estimated glomerular filtration rate calculated using the CKD-EPI refit equation. ANION GAP 16 10 - 20 mmol/L [facility] Blood 02/16/2025 8:37 PM EDT 02/16/2025 8:57 PM EDT us Hari Kaminski MD LAB BLOOD ORDERABLES Fin al Result [facility] [address] [place] [address] * XR Chest Portable (02/16/2025 8:19 PM [...] CONTRAST (02/16/2025 8:02 PM EDT) MGB IMG FILAMENT TESTER COMMENT No intracranial hemorrhage. No large vessel occlusion. [facility] Anatomical Region Laterality Modality Neck Computed Tomogra phy 02/16/2025 8:04 PM EDT Impressions 02/16/2025 8:44 PM EDT 1. No acute intracranial abnormality. 2. No acute vascular abnormality. A clinically significant result was initiated on 02/16/2025 8:11 PM, Message ID [id number]. ATTESTATION: I, Layne Harper as teaching physician, [...] clinician's provided indication for this examination in [facility]: *Neuro deficit, acute, stroke suspected; slurred [...] was initiated on 02/16/2025 8:11 PM,Message ID [id number]. ATTESTATION: Layne Leahy as teaching physician, have reviewed theimages for this case and if necessary edited the report originally createdby Eder Chavez. Hari Kaminski MD [facility] [place] HEAD/NECK Final R esult * CT HEAD (CODE STROKE) WITHOUT CONTRAST (02/16/2025 8:02 PM EDT) MGB IMG FILAMENT TESTER COMMENT No intracranial hemorrhage. No large vessel occlusion. [facility] Anatomical Region Laterality Modality Head Computed Tomogra phy 02/16/2025 8:04 PM EDT Impressions 02/16/2025 8:44 PM EDT 1. No acute intracranial abnormality. 2. No acute vascular abnormality. A clinically significant result was initiated on 02/16/2025 8:11 PM, Message ID [id number]. ATTESTATION: Layne Leahy as teaching physician, have reviewed the images for this case and if necessary edited the report originally created by Eder Chavez. Narrative 02/16/2025 8:[address] HEAD (CODE STROKE) WITHOUT CONTRAST, CT ANGIO HEAD (CODE STROKE) W CONTRAST, CT ANGIO NECK W CONTRAST Referring clinician's provided indication for this examination in [facility]: * Neuro deficit, acute, stroke suspected; [...] was initiated on 02/16/2025 8:11 PM,Message ID [id number]. ATTESTATION: I, Layne Harper as teaching physician, have reviewed theimages for this case and if necessary edited the report originally createdby Eder Chavez. us Hari Kaminski MD IMG CT HEAD/NECK Final R esult * (ABNORMAL) Lipid panel (10/14/2023 8:20 AM EDT) HDL 60 mg/dL [facility] Comment: Interpretation <40 mg/dL: Low HDL cholesterol (major risk factor for CHD) Greater than or equal to 60 mg/dL: High HDL cholesterol ( negative risk factor for CHD) HDL - cholesterol is affected by a number of factors, e.g. smoking, excerise, hormones, sex and age. CHOLESTEROL 241(H) 0 - 240 mg/dL [facility] TRIGLYCERIDES 76 30 - 160 mg/dL [facility] LDL 166(H) 50 - 129 mg/dL [facility] Comment: LDL levels in terms of risk for coronary heart disease: <100 mg/dL: Optimal 100-129 mg/dL: Near or above optimal 130-159 mg/dL: Borderline high 160-189 mg/dL: High >190 mg/dL: Very High CARDIAC RISK RATIO 4.0 3.3 - 4.4 C [facility] Blood 10/14/2023 8:20 AM EDT 10/14/2023 8:30 AM EDT us Janet Vazquez MD LAB BLOOD ORDERABLES Final Re sult [facility] [address] [place] [address] from Last 3 Months or Most Recently Relevant to Health Maintenance Insurance [facility] MEDICARE REPLACEMENT [facility] MEDICARE REPLACEMENT [facility] MEDICARE [facility]PLACEMENT [facility] MEDICARE REPLACEMENT [facility] MEDICARE REPLACEMENT [facility] MEDICARE REPLACEMENT [facility] MEDICARE REPLACEMENT [facility] MEDICARE REPLACEMENT Advance Directives For more information, please contact: [phone] (9AM - 5PM [facility], Sunday-Sunday) Documents on File Type Date Recorded Patient Platform Builder Expl anation Healthcare Proxy 11/02/2023 1:33 PM * Full Code (Latest Code Status on File) Date Activated Date Inactivated Comments 10/09/2023 6:56 PM Question Answer Comments Code Status Confirmed With: Patient Healthcare Agents on File Name Relationship Healthcare Agent Relationshi p Communication Jennifer Ailyn Sister .Primary Health Care Agent (Proxy form on file) Care Teams Tube Lancer Relationship Specialty Start Date End Date Theresa Nelson MD [address] [place] [address] [email or web address] PCP - General 07/05/17 Additional Source Comments The information contained in this document represents components of the legal health record. It is not the complete legal health record.[facility]
--- OUTSIDE RECORDS SUMMARY | 2025-04-14 15:30 | XMS_ITS | Encounter Summary ---
Author Organization [facility] Address [address] [place] [address] Phone Care Team Providers Care Rn Emergency Room Name Role Phone Theresa Nelson MD Primary Care Provider Encounter Details Date Type Department Care Team (Late st Contact Info) Description 02/16/2025 Procedure Pass [facility], Ct Scan - [facility] [address] [place] [address] Social History Tobacco Use Types Packs/Day Years [...] 02/17/2025 10:56 AM Aleena Montano RN * [place] Suicide Severity Rating Scale (Screener/Recent Self-Report) Question [...] on filedocumented in this encounter Care Teams Rn Emergency Room Relationship Specialty Start Date End Date Theresa Nelson MD [address] [place] [phone] [email or web address] PCP - General 07/05/17 documented as of this encounter Additional Source Comments The information contained in this document represents components of the legal health record. It is not the complete legal health record.[facility]
[2025-04-14 16:54] VITALS: BMI 23.3
--- NOTE | 2025-04-14 18:13 | PC.ADMIT ---
Admission Note: 69 year-old female patient admitted to room 182-2 after DC from S3 at 12:53pm. Warm hand-off report completed. Per report and medical record, patient recently has had multiple inpatient psychiatric stays and ER visits r/t Bipolar Disorder 1 and Catatonia. She was admitted to [facility] 03/21/25 with UTI, Failure to Thrive, and Catatonia. She was medically cleared and DC'd to S1. 12B signed and completed. Spoke with HCP/sister Jennifer to inform her that patient arrived to the unit. She admits that caring for the patient can be overwhelming. She fears the patient isn't taking care of herself and won't be able to sustain living alone. She admits the patient is social and would benefit from being with others. She'd like to discuss more terminal operations manager planning/placement with psychologist social. Expressed interest in [facility] for terminal operations manager support. Encouraged her to discuss this with treatment team. Patient also works with [employer]- has a therapist. She gets ECT MWF which started on 04/02/25. She did not have it yesterday d/t the holiday. Upon arrival to the unit, patient repeatedly stated I don't want to be here. Limited participation with assessment questions. VSS and no s/s of obvious physical distress. Denies any pain. Patient had stopped eating and was receiving TPN on S3 (it was since DC'd). Appetite is improving since admitted inpatient. Denies N/V/D/C. Last BM today (per RN hand off report). solvent recoverer completed and skin check performed. No open areas noted, however dry pink patches noted on her face. Provider notified and cream ordered. Patient ambulating without assistive device- but gait is unsteady. She had a fall while admitted to [facility]. Standby and 1:1 assist. Walker provider, however patient is not using it. Fall precautions in place and patient will require reinforcement. Patient affect is flat and depressed. Behavior agitated, mildly paranoid/suspicious, and anxious as she wanted to leave/go home. History of depression. Reports anxiety is bad - possibly triggered by her pet dog being rehomed (to her sister) as she was unable to care for it. Vague SI- she stated I don't even want to be alive and I just want to be with Chapo at different times throughout the shift. She confirms she has no plan or intent to harm herself or others. Denies history of attempt, however crisis note indicates she did in her teens. Denies any AH/VH. She confirms feeling safe in the hospital. She acknowledged that she would not be safe enough to take care of herself at home, but repeated I don't want to be here . She became increasingly anxious and agitated in milieu regarding wanting to leave. She also began insisting that her family members were . She then began calling her brother (Lincoln) and sister (Jennifer) repeatedly. Becoming more agitated when they did not answer her calls. She received PRN Olanzapine and Hydroxyzine. Minimal effect therefore she received PRN Lorazepam. After speaking with family, she was more calm sitting in common area. She did approach another patient who was using the phone and told her to get off the phone. Patient accused the other patient of talking about her on the phone (which was not the case, RN was there). Patient informed that the phone is for all the patients. Patient oriented to the floor. Placed on 5 minute checks.
[2025-04-14 20:00] VITALS: BP 122/72; PULSE 98; RESP 16; TEMP 36.3; O2SAT 97
--- NOTE | 2025-04-14 20:19 | HO.PSYADMNOT ---
HPI Date of Service: 04/14/25 Chief Complaint: decomp Sources of Information: patient interviewed, chart reviewed and crisis/core team assessment reviewed HPI Subjective Notes: Section 12B Healthcare Proxy: Yes Guardianship: No Medical Problems Affecting Mental Status: No Narrative: Per [facility] record: patient is a 69 yo female with hx history of UTI, depression, bipolar 1 depression, osteoarthritis, status post cardiac catheterization, anxiety, GERD, insomnia, osteopenia, 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 Patient has been at [facility] for approximately 3 weeks. Patient originally seen in [facility] after patient called 911. Prior to that patient had a puppy but could no longer care for the puppy and the puppy was taken away. Patient appeared to have a breakdown and was calling sister incessantly regarding the puppy and apparently called 911 out of distress. Patient was transferred to [facility] on a section 12 from [facility] for MDD, intrusive thoughts and auditory hallucinations. Pt was taken to [facility] ED from [facility] on 03/16/2025 and was diagnosed with a UTI and was discharged back to [facility] on oral antibiotics. Initial concern was patient was not eating for 3-4 days prior to being seen in the ED. At that time, patient was verbal and was stating she had pain everywhere. Patient has refused oral antibiotics at [facility] after sending back from ED first time. Patient then returned to the ED 03/20/2025 status post a fall with increased confusion. Workup in the ED was unremarkable aside from the known UTI. Patient presents in a catatonic state. Patient is mute and appears to be in a state of stupor. Patient is making eye contact but does not respond appropriately. Per patient's sister Jennifer, patient had been on Seroquel and was doing very well for approximately 5 years until the recent incident with a puppy. At [facility], the psychiatrist had mentioned a new medication that they were considering but patient had not yet started because she was refusing oral medications. From 03/20/25 to 04/14/25: Patient was admitted for bipolar disorder with catatonia moderate protein calorie malnutrition. Was treated with IV Valium, multiple ECTs, was supported with parenteral nutrition. Slowly patient had improvement, became more verbal, more participatory and diet significantly increased and was able to be weaned off parenteral nutrition. Was seen by Psychiatry who adjusted medications. Patient is still having significant acute psychiatric issues so will be discharged to inpatient psych. During hospitalization patient did have episode of acute hypoxic respiratory failure possibly due to pneumonia and completed 1 week of ertapenem. On S1: meet with patient for psychiatric evaluation. This provider is familiar with the case as patient was seen by this provider a couple times on med floor and twice over at [facility] over the weekends probably two months ago. Compare to 3 weeks ago. Patient is verbal and engagable as she was mute and not taking food or OP meds. She reports reason for being here is stuff that I have seen things. A lot of people's but denies AVH at this current time. She is aware of I am at [facility]. Why you keep asking me that questions. I want to talk to my sister and my brother . She is perseverative on making phone calls to her family, having a contact list in her hand and repeatedly saying she wants to make phone calls to her family memeber but she was not able to get a hold of them. Report her brother is Lincoln and her sister is Jennifer. Report she has Bipolar and there is a nurse who helped her manage medication at home. She does not remember what medication she supposed to take. Mood is bad and I want to talk to my sister and brother . Denies SI/SIB/HI/AVH but appear preoccupied, restless, racing thoughts with loud voices. She states I do not want to be here. I want to go home and refuses to sign CV. Therefore she is currently on section 12B. However, agrees to take medication and compliant with food so she can get better. Goal is help me feel better . Patient is A+O, restless with racing thoughts, not truly engage in assessment but verbally, eating diner. Goal directed even though thought content is not on treatment, want to go home. She takes PO PRN medication in the afternoon without any issues. Speech is loud with pressure. Mood is irritable and perserverative. Thought process is disorganized, not linear. Not on treatment. Impaired insight and judgment. Will reach out to HCP-sister- Jennifer for collateral. Will continue with current meds with some changes to address psychotic and manic/depressed symptoms/behavior. Will continue with ECG and hold on BZD prior to scheduled ECT with NPO after midnight per ECT protocol. Past Psychiatric History: Inpt: [facility] 09/09/2021 (catatonia), 11/03/2023; 12/24/23; 06/10/24. 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 Currently is receiving ECT treatment. -Per sister, pt has had depression since her early 20s and has suffered from unspecified chronic pain, surgeries. -Hx of multiple psych admissions to [facility] Past medication trials: seroquel, paliperidone, vraylar. R Medical Evaluation Reviewed: Yes [facility] Medical History Delirium due to another medical condition History of skin cancer Hx of bladder problems VITO (generalized anxiety disorder) Murmur, cardiac Hx of thyroid nodule Osteopenia Hx of skin cancer, basal cell Seasonal allergies Insomnia Constipation GERD (gastroesophageal reflux disease) Anxiety History of electroconvulsive therapy Bipolar 1 disorder Surgical History Hx of colonoscopy H/O elbow surgery History of back surgery Family History: -Depression. In 1998 her great grandfather hung himself. Social History: -Pt has never been , no children. Dog recently . -Pt's mother (age 88), sister, and brother are involved with pt's care. -She graduated h.s. And has bachelors in psychology. She worked at [facility] [employer]. Substance History: Not able to obtain d/t clinical presentation Trauma History: deferred. Not able to obtain d/t clinical presentation Diagnostics Vital Signs (24Hr): Vital Signs - 24 hr 04/14/25 12:55 04/14/25 20:00 Temperature 99.1 F 97.4 F Pulse Rate 85 98 Respiratory Rate 18 16 Blood Pressure 105/65 122/72 Pulse Oximetry 93 97 Oxygen Delivery Method Room Air Room Air BMI result Body Mass Index 23.3 Meds/Allergies Meds Home Medications ?Medication ?Instructions ?Recorded ?Confirmed ?Type docusate sodium 100 mg capsule 1 cap PO BID PRN Constipation 03/22/25 04/14/25 History loperamide 2 mg tablet 2 mg PO Q6H PRN Diarrhea 03/22/25 04/14/25 History lorazepam 0.5 mg tablet 0.5 mg PO TID 03/22/25 04/14/25 History melatonin 3 mg tablet 3 mg PO BEDTIME PRN Sleep 03/22/25 04/14/25 History ondansetron HCl 4 mg tablet 4 mg PO Q6H PRN Nausea And Vomiting 03/22/25 04/14/25 History pantoprazole 40 mg tablet,delayed 40 mg PO DAILY@0630 03/22/25 04/14/25 History release Allergies Allergies Allergy/AdvReac Type Severity Reaction Status Date / Time bee pollen Allergy Severe Anaphylaxis Verified 03/21/25 14:48 levofloxacin (From Levaquin) Allergy Severe Itching Verified 03/21/25 14:48 enoxaparin (From Lovenox) Allergy Intermediate Rash Verified 03/21/25 14:48 Seasonal Allergies Allergy Mild Runny Nose Verified 03/21/25 14:48 venlafaxine (From Effexor) Allergy Mild Constipatio Verified 03/21/25 14:48 n Penicillins Allergy Unknown Unknown Verified 03/21/25 14:48 Mental Status Exam Mental Status Exam Narrative: Patient is A+O, wearing hospital attire, unkempt hair, distracted, visible, preservative on phone calling sister and brother.. Eyes contact is fair. Denies SI/SIB/HI/AVH. Speech is loud and pressure. Feeling bad , appears preoccupied, restless, racing thoughts. Thought processes disorganized, not linear. Poor and impaired judgment and insight. Assessment & Plan Assessment & Plan (1) Catatonia: Status: Acute Code(s): F06.1 - Catatonic disorder due to known physiological condition (2) Bipolar II, mixed, severe with psychotic behavior: Status: Acute Code(s): F31.81 - Bipolar II disorder Plan HPI: patient is a 69 yo female with hx history of UTI, depression, bipolar 1 depression, osteoarthritis, status post cardiac catheterization, anxiety, GERD, insomnia, osteopenia, 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 Patient has been at [facility] for approximately 3 weeks. Patient originally seen in [facility] after patient called 911. Prior to that patient had a puppy but could no longer care for the puppy and the puppy was taken away. Patient appeared to have a breakdown and was calling sister incessantly regarding the puppy and apparently called 911 out of distress. Patient was transferred to [facility] on a section 12 from [facility] for MDD, intrusive thoughts and auditory hallucinations. She was on Med floor from 03/20/25 to 04/14/25: Patient was admitted for bipolar disorder with catatonia moderate protein calorie malnutrition. Was treated with IV Valium, multiple ECTs, was supported with parenteral nutrition. Slowly patient had improvement, became more verbal, more participatory and diet significantly increased and was able to be weaned off parenteral nutrition. Was seen by Psychiatry who adjusted medications. Patient is still having significant acute psychiatric issues so will be discharged to inpatient psych. During hospitalization patient did have episode of acute hypoxic respiratory failure possibly due to pneumonia and completed 1 week of ertapenem. Formulation/clinical reasoning: Continue presenting with manic/psychotic/catatonia features. Just recently taking PO medication the past 2-3 days plus starting eating, advance to regular diet prior to transferred to . Hospital course: 04/14/25: Continue with ECT as scheduled Ativan 0.5mg TID PO for anxiety/catatonia. Ativan 0.5mg BID PRN For severe anxiety Increase Zypexa 2.5 BID to 5mg BID to target psychotic/bipolar symptoms. BID PRN for severe agitation Plan Patient on 5 minute checks for safety. Admitted to S1. 12B NPO after midnight on . Hold BZD the night before ECT. Work with treatment team to do collateral. Patient educated on: diagnosis, medication risk/benefits and therapeutic strategies Informed Consent: further education needed Reason for continued inpatient stay Substantial Risk for: med/psych decompensation Statement Statement: I have reviewed the history and physical and performed a pertinent examination on my patient. No changes have occurred unless specified. If the History and Physical was not performed prior to admission, the Hospitalist's service will be consulted for completing the admission physical. Time Spent With Patient Time: Total time managing care of this patient today ____ minutes.
[2025-04-14] MEDS: Clotrimazole 1 % Cream 15 GM TUBE 1 APPL TOPICAL (21:27)
[2025-04-15] VITALS (9 sets, daily range): BP systolic 105–199; BP diastolic 60–113; PULSE 70–112; RESP 16–18; TEMP 36.3–36.9; O2SAT 96–99
--- NOTE | 2025-04-15 07:15 | PM.ANESCN ---
History of Present Illness Consult details Consult date: 04/15/25 Review of Systems Review of Systems: Yes all other systems are reviewed and are negative Constitutional: Constitutional: Reports as per HPI Eyes: Eyes: Reports as per HPI ENT: Reports as per HPI Cardiovascular: Cardiovascular: Reports as per HPI Respiratory: Respiratory: Reports as per HPI Gastrointestinal: Gastrointestinal: Reports as per HPI Genitourinary: Genitourinary: Reports as per HPI Musculoskeletal: Musculoskeletal: Reports no additional musculoskeletal complaints Integumentary/Breasts: Skin/Breast: Reports system reviewed and no additional complaints, except as docu Neurologic: Reports system reviewed and no additional complaints, except as documented Psychiatric: Psychiatric: Reports as per HPI Endocrine: Endocrine: Reports no additional endocrine complaints Hematologic/Lymphatic: Hematologic/Lymphatic: Reports no additional hematologic/lymphatic complaints Allergic/Immunologic: Allergic/Immunologic: Reports no additional allergic/immunologic complaints PMFSH Past Medical History Medical History Delirium due to another medical condition History of skin cancer Hx of bladder problems VITO (generalized anxiety disorder) Murmur, cardiac Hx of thyroid nodule Osteopenia Hx of skin cancer, basal cell Seasonal allergies Insomnia Constipation GERD (gastroesophageal reflux disease) Anxiety History of electroconvulsive therapy Bipolar 1 disorder Functional capacity: independent ambulation Family History Family History Mother Basal cell carcinoma (BCC) in situ of skin Osteoporosis Hyperlipidemia Father CAD (coronary artery disease) Alcoholism Sister Osteoporosis Depression Brother Cancer of tongue Cancer of skin Surgical History Surgical History Hx of colonoscopy H/O elbow surgery History of back surgery History of Problems with Anesthesia: Yes Social History Social History Household Members: None Household Members Other:: brought in [facility] Housing: Apartment Are you a primary healthcare prof to a significant other at home: No Do you presently have visiting nurse or other home services: Yes Comment: 1:1 Patient Tobacco Use Status: Never used Tobacco Tobacco use type: Cigarette Years Smoked: 30+, now vapes e-Cigarette/Vaping Use: Currently Using Second Hand Smoke Exposure: No Substance Use Type: Crack/Cocaine Have you been hit, kicked, punched, or otherwise hurt by someone within the past year? If so, by whom?: No Do you feel safe in your current relationship?: No Are you made to feel afraid or neglected: No Spiritual Healthcare Practices: No Hinduism Healthcare Practices: No Cultural Healthcare Practices: No Advance Directives: Yes Advance Directives on File: Yes Advance Directives Date on File: 06/12/24 Recently lost weight without trying: Yes How much weight loss: Unsure Eating poorly because of decreased appetite: No Nutrition screen score: 4 Nutrition Risks: No Nutritional Risk Patient : No : No Poor oral hygiene: No service: No Current occupational status: unemployed and retired 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 Sexual orientation: Straight/Heterosexual Meds Allergies Allergy/AdvReac Type Severity Reaction Status Date / Time bee pollen Allergy Severe Anaphylaxis Verified 03/21/25 14:48 levofloxacin (From Levaquin) Allergy Severe Itching Verified 03/21/25 14:48 enoxaparin (From Lovenox) Allergy Intermediate Rash Verified 03/21/25 14:48 Seasonal Allergies Allergy Mild Runny Nose Verified 03/21/25 14:48 venlafaxine (From Effexor) Allergy Mild Constipatio Verified 03/21/25 14:48 n Penicillins Allergy Unknown Unknown Verified 03/21/25 14:48 Active Medications: Current Medications Acetaminophen (Acetaminophen 325 Mg Tablet) 650 mg PO Q6H PRN PRN Reason: Headache/Pain, Scale 1-10 Al Hydroxide/Mg Hydroxide (Magnesium Hydrox/Alum Hydrox 30 Ml Oral.Susp) 30 ml PO Q6H PRN PRN Reason: Heartburn/Nausea Clotrimazole (Clotrimazole 1 % Cream 15 Gm Tube) 1 appl TOPICAL BID GRECIA; Protocol Last Admin: 04/14/25 21:27 Dose: 1 appl Docusate Sodium (Docusate Sodium 100 Mg Capsule) 100 mg PO BID PRN PRN Reason: Constipation Hydroxyzine HCl (Hydroxyzine Hcl 25 Mg Tablet) 25 mg PO Q6H PRN PRN Reason: mild anxiety Last Admin: 04/14/25 15:12 Dose: 25 mg Loperamide HCl (Loperamide Hcl 2 Mg Capsule) 2 mg PO Q6H PRN PRN Reason: Diarrhea Lorazepam (Lorazepam 0.5 Mg Tablet) 0.5 mg PO TID GRECIA On Hold: 04/14/25 20:18 Lorazepam (Lorazepam 0.5 Mg Tablet) 0.5 mg PO Q6H PRN On Hold: 04/14/25 20:18 PRN Reason: severe anxiety Last Admin: 04/14/25 15:58 Dose: 0.5 mg Magnesium Hydroxide (Milk Of Magnesia 30 Ml Oral.Susp) 30 ml PO DAILY PRN PRN Reason: Constipation Melatonin (Melatonin 3 Mg Tablet) 6 mg PO BEDTIME [facility] Last Admin: 04/14/25 21:27 Dose: 6 mg Nicotine (Nicotine 21 Mg Patch.Td24) 21 mg TRANSDERMA DAILY PRN PRN Reason: nicotine craving Nicotine Polacrilex (Nicotine Polacrilex 2 Mg Gum) 2 mg BUCCAL Q2H PRN PRN Reason: Nicotine Cravings Olanzapine (Olanzapine 5 Mg Tablet) 5 mg PO BID PRN PRN Reason: agitation Last Admin: 04/14/25 15:12 Dose: 5 mg Olanzapine (Olanzapine 5 Mg Tablet) 5 mg PO BID [facility] Last Admin: 04/14/25 21:29 Dose: 5 mg Omeprazole (Omeprazole 20 Mg Capsule.Dr) 20 mg PO DAILY@0630 [facility] Last Admin: 04/15/25 01:55 Dose: Not Given Ondansetron HCl (Ondansetron Odt 4 Mg Tab.Rapdis) 4 mg TRANSLINGU Q6H PRN PRN Reason: Nausea and Vomiting Thiamine HCl (Thiamine Hcl 100 Mg Tablet) 100 mg PO BID [facility] Last Admin: 04/14/25 21:27 Dose: 100 mg Trazodone HCl (Trazodone Hcl 50 Mg Tablet) 50 mg PO BEDTIME MRX1 PRN PRN Reason: Insomnia Home Medications ?Medication ?Instructions ?Recorded ?Confirmed ?Last Taken ?Type docusate sodium 100 mg capsule 1 cap PO BID PRN Constipation 03/22/25 04/14/25 Unknown History loperamide 2 mg tablet 2 mg PO Q6H PRN Diarrhea 03/22/25 04/14/25 Unknown History lorazepam 0.5 mg tablet 0.5 mg PO TID 03/22/25 04/14/25 Unknown History melatonin 3 mg tablet 3 mg PO BEDTIME PRN Sleep 03/22/25 04/14/25 Unknown History ondansetron HCl 4 mg tablet 4 mg PO Q6H PRN Nausea And Vomiting 03/22/25 04/14/25 Unknown History pantoprazole 40 mg tablet,delayed 40 mg PO DAILY@0630 03/22/25 04/14/25 Unknown History release Physical Exam Vital Signs: Vital Signs: Last Vital Signs Temp 97.7 F 04/15/25 06:59 Pulse 77 04/15/25 06:59 Resp 16 04/15/25 06:59 BP 105/70 04/15/25 06:59 Pulse Ox 98 04/15/25 06:59 O2 Del Method Room Air 04/15/25 06:59 BMI result Body Mass Index 23.3 Results Labs Labs: All other labs normal. Procedures Date of Service Date of Service: 04/15/25
--- NOTE | 2025-04-15 07:17 | MHC.SHP ---
Pre-Procedural Eval Section A - 24 Hr Update-Section A only Date of Service: 04/15/25 The patient is an INPATIENT: Yes Changes since office visit: No Cold of Flu in the past 2 weeks, No New Medical Problems, No Changes in Medication and No Patient answered all questions The patient has been examined within 24 hours of the surgical procedure. The History & Physical has been completed within 30 days and I have reviewed it.: Yes Section B - Complete if H&P > 30 days Chief Complaint: decomp Details of Present Illness: pt improved, no catatonia; still disorganized Allergies: Allergies Allergy/AdvReac Type Severity Reaction Status Date / Time bee pollen Allergy Severe Anaphylaxis Verified 03/21/25 14:48 levofloxacin (From Levaquin) Allergy Severe Itching Verified 03/21/25 14:48 enoxaparin (From Lovenox) Allergy Intermediate Rash Verified 03/21/25 14:48 Seasonal Allergies Allergy Mild Runny Nose Verified 03/21/25 14:48 venlafaxine (From Effexor) Allergy Mild Constipatio Verified 03/21/25 14:48 n Penicillins Allergy Unknown Unknown Verified 03/21/25 14:48 Plan Diagnosis/Plan: Unchanged I have reviewed the history and physical and performed a pertinent physical examination on my patient. No changes have occurred unless specified. Time Spent With Patient Time: Total time managing care of this patient today ____ minutes.
--- NOTE | 2025-04-15 07:42 | HO.ECTPROC ---
ECT Procedure Note Diagnosis/Treatment Date of Service: 04/15/25 Diagnosis: Bipolar disorder and Catatonia (resolved) Previous ECT Date: 04/10/25 Current Treatment Number: 5 Treatment: Series Interval Clinical Notes: remains disorganized in speech and behavior; catatonia seems resolved Time: Total time managing care of this patient today ____ minutes. ECT Settings Device: THYMATRON DGx Electrode Placement: Bifrontal Program/Pulse Width: 0.50 Energy Percent: 100 Seizure Duration By EEG (in seconds): 40 By Motor Observation (in seconds): 25 Medications Administration General Anesthetic: Etomidate (12 +4) Muscle Relaxant: Succinylcholine (100) Ancillary Medications Miscillaneous Medications: Midazolam (2) and Flumazenil (0.5) Airway Management Airway Management: Bag Mask Ventilation Treatment Recommendations No Changes Recommended: No change Electrode Placement: Bifrontal Program/Pulse Width: 0.50 Energy Percent: 100 Notes: tolerated procedure; adequate seizure ended up needing some additional Etomidate for total of 16mg got Versed 2mg post ECT for restlessness Pt Tolerated Procedure w/o Issue: Yes
--- NOTE | 2025-04-15 08:18 | HO.PM.IMCN ---
History of Present Illness Data of Consult Service Date: 04/15/25 Primary Care Provider: Unknown Physician HPI Reason for consult: Medical consult 69 yo female with PMH UTI, depression, bipolar 1 depression, osteoarthritis, status post cardiac catheterization, anxiety, GERD, insomnia, osteopenia, DVT of left tibial vein no longer on anticoagulation, History of basal cell skin cancer, VITO, cardiac murmur, history of thyroid nodule, osteopenia and history of ECT. Prior to admission to the medical center patient was at [facility] as a result of a section 12 from [facility] for major depressive disorder intrusive thoughts and auditory hallucinations. Patient apparently had decompensation after she had a puppy that she was unable to care for which was taken from her. Patient presented to the [facility] ED from [facility] diagnosed with a UTI and was discharged on medications which she did not take. She was again brought to the ED status post fall with increased confusion and again diagnosed with a UTI. She was started on Ceftin but refused these. Patient initially presented in a catatonic state. She was treated with IV Valium, ECTs and received TPN for nutrition. She has gradually improved and then was weaned off parenteral nutrition had medications adjusted and a care team was consulted when she was medically stable and now she is discharged to [facility] for further care and treatment. On exam she is awake and alert, reporting that she wants to go home. Denies any medical concerns. Review of Systems Review of Systems: Denies any shortness of breath, chest pain, headaches, dysuria, abdominal pain or discomfort, nausea, vomiting or diarrhea. [facility] Medical History Delirium due to another medical condition History of skin cancer Hx of bladder problems VITO (generalized anxiety disorder) Murmur, cardiac Hx of thyroid nodule Osteopenia Hx of skin cancer, basal cell Seasonal allergies Insomnia Constipation GERD (gastroesophageal reflux disease) Anxiety History of electroconvulsive therapy Bipolar 1 disorder Functional capacity: independent ambulation Family History Mother Basal cell carcinoma (BCC) in situ of skin Osteoporosis Hyperlipidemia Father CAD (coronary artery disease) Alcoholism Sister Osteoporosis Depression Brother Cancer of tongue Cancer of skin Surgical History Hx of colonoscopy H/O elbow surgery History of back surgery Social History Household Members: None Household Members Other:: brought in from [facility] Housing: Apartment Are you a primary home care provider to a significant other at home: No Do you presently have visiting nurse or other home services: Yes Comment: 1:1 Patient Tobacco Use Status: Never used Tobacco Tobacco use type: Cigarette Years Smoked: 30+, now vapes e-Cigarette/Vaping Use: Currently Using Second Hand Smoke Exposure: No Substance Use Type: Crack/Cocaine Currently Displaying Signs/Symptoms of Drug Intoxication Withdrawal: No Have you been hit, kicked, punched, or otherwise hurt by someone within the past year? If so, by whom?: No Do you feel safe in your current relationship?: No Are you made to feel afraid or neglected: No Spiritual Healthcare Practices: No Mandaeism Healthcare Practices: No Cultural Healthcare Practices: No Advance Directives: Yes Advance Directives on File: Yes Advance Directives Date on File: 06/12/24 Do you have thoughts of harming others: None Do you have a plan to hurt others: No Plan Recently lost weight without trying: Yes How much weight loss: Unsure Eating poorly because of decreased appetite: No Nutrition screen score: 4 Nutrition Risks: No Nutritional Risk Patient : No : No Poor oral hygiene: No service: No Current occupational status: unemployed and retired 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 Sexual orientation: Straight/Heterosexual Meds Allergies Allergy/AdvReac Type Severity Reaction Status Date / Time bee pollen Allergy Severe Anaphylaxis Verified 03/21/25 14:48 levofloxacin (From Levaquin) Allergy Severe Itching Verified 03/21/25 14:48 enoxaparin (From Lovenox) Allergy Intermediate Rash Verified 03/21/25 14:48 Seasonal Allergies Allergy Mild Runny Nose Verified 03/21/25 14:48 venlafaxine (From Effexor) Allergy Mild Constipatio Verified 03/21/25 14:48 n Penicillins Allergy Unknown Unknown Verified 03/21/25 14:48 Active Medications: Current Medications Acetaminophen (Acetaminophen 325 Mg Tablet) 650 mg PO Q6H PRN PRN Reason: Headache/Pain, Scale 1-10 Al Hydroxide/Mg Hydroxide (Magnesium Hydrox/Alum Hydrox 30 Ml Oral.Susp) 30 ml PO Q6H PRN PRN Reason: Heartburn/Nausea Clotrimazole (Clotrimazole 1 % Cream 15 Gm Tube) 1 appl TOPICAL BID [facility]; Protocol Last Admin: 04/14/25 21:27 Dose: 1 appl Docusate Sodium (Docusate Sodium 100 Mg Capsule) 100 mg PO BID PRN PRN Reason: Constipation Hydroxyzine HCl (Hydroxyzine Hcl 25 Mg Tablet) 25 mg PO Q6H PRN PRN Reason: mild anxiety Last Admin: 04/14/25 15:12 Dose: 25 mg Loperamide HCl (Loperamide Hcl 2 Mg Capsule) 2 mg PO Q6H PRN PRN Reason: Diarrhea Lorazepam (Lorazepam 0.5 Mg Tablet) 0.5 mg PO TID [facility] Lorazepam (Lorazepam 0.5 Mg Tablet) 0.5 mg PO Q6H PRN PRN Reason: severe anxiety Last Admin: 04/14/25 15:58 Dose: 0.5 mg Magnesium Hydroxide (Milk Of Magnesia 30 Ml Oral.Susp) 30 ml PO DAILY PRN PRN Reason: Constipation Melatonin (Melatonin 3 Mg Tablet) 6 mg PO BEDTIME [facility] Last Admin: 04/14/25 21:27 Dose: 6 mg Nicotine (Nicotine 21 Mg Patch.Td24) 21 mg TRANSDERMA DAILY PRN PRN Reason: nicotine craving Nicotine Polacrilex (Nicotine Polacrilex 2 Mg Gum) 2 mg BUCCAL Q2H PRN PRN Reason: Nicotine Cravings Olanzapine (Olanzapine 5 Mg Tablet) 5 mg PO BID PRN PRN Reason: agitation Last Admin: 04/14/25 15:12 Dose: 5 mg Olanzapine (Olanzapine 5 Mg Tablet) 5 mg PO BID [facility] Last Admin: 04/14/25 21:29 Dose: 5 mg Omeprazole (Omeprazole 20 Mg Capsule.Dr) 20 mg PO DAILY@0630 [facility] Last Admin: 04/15/25 01:55 Dose: Not Given Ondansetron HCl (Ondansetron Odt 4 Mg Tab.Rapdis) 4 mg TRANSLINGU Q6H PRN PRN Reason: Nausea and Vomiting Thiamine HCl (Thiamine Hcl 100 Mg Tablet) 100 mg PO BID [facility] Last Admin: 04/14/25 21:27 Dose: 100 mg Trazodone HCl (Trazodone Hcl 50 Mg Tablet) 50 mg PO BEDTIME MRX1 PRN PRN Reason: Insomnia Home Medications ?Medication ?Instructions ?Recorded ?Confirmed ?Last Taken ?Type docusate sodium 100 mg capsule 1 cap PO BID PRN Constipation 03/22/25 04/14/25 Unknown History loperamide 2 mg tablet 2 mg PO Q6H PRN Diarrhea 03/22/25 04/14/25 Unknown History lorazepam 0.5 mg tablet 0.5 mg PO TID 03/22/25 04/14/25 Unknown History melatonin 3 mg tablet 3 mg PO BEDTIME PRN Sleep 03/22/25 04/14/25 Unknown History ondansetron HCl 4 mg tablet 4 mg PO Q6H PRN Nausea And Vomiting 03/22/25 04/14/25 Unknown History pantoprazole 40 mg tablet,delayed 40 mg PO DAILY@0630 03/22/25 04/14/25 Unknown History release Physical Exam Vital Signs and Narrative: Vital Signs: Last Vital Signs Temp 97.7 F 04/15/25 06:59 Pulse 77 04/15/25 06:59 Resp 16 04/15/25 06:59 BP 105/70 04/15/25 06:59 Pulse Ox 98 04/15/25 06:59 O2 Del Method Room Air 04/15/25 06:59 BMI result Body Mass Index 23.3 CONST: Alert, flat affect, in NAD. Thin HEENT: Normocephalic, atraumatic, MMM, Eyes clear, Neck supple RESP: Lungs clear, RRR even and regular HEART:,RRR, S1, S2. No edema GI:Abdomen Soft NT, ND. + BS times four :Deferred SKIN: Warm dry and intact, no visible lesions or rashes NEURO:CN II-XII Intact bilaterally, Sensation intact. Speech clear PSYCH: Flat affect, guarded, verbal Assessment and Plan (1) GERD (gastroesophageal reflux disease): Status: Acute Plan 69-year-old female admitted from the medical floor to inpatient the medical center for continued care after she presented with catatonia and decompensated bipolar disorder Depression/bipolar 2 mixed with psychotic behavior/VITO/insomnia Treatment per psychiatric team Continues on ECT treatments Recently treated for acute hypoxic respiratory failure due to pneumonia, she completed 1 week of meropenem, also treated for UTI. GERD Continues on omeprazole Thank you for allowing me to participate in the care of this patient. Will follow with you, please notify medical provider with any changes in condition or concerns.
[2025-04-15] MEDS: Clotrimazole 1 % Cream 15 GM TUBE 1 APPL TOPICAL ×2 (10:11→20:26)
--- NOTE | 2025-04-15 15:32 | P.PNPSI_ITS ---
Subjective Subjective Date of Service: 04/15/25 Reason For Visit: decomp Interim History: Met with patient; discussed with team Catatonia remains resolved but patient disorganized in speech and behavior; frequently yells out I am dying or I do not want to calling her trying to call her sister numerous times a day. Discussed ECT and patient says she does not want it but seems to accept at least momentarily that she needs it Mental Status Exam Mental Status Exam Narrative: Patient is A+O, wearing hospital attire, disorganized in speech and behavior; unkempt hair, distracted, visible, preservative about wanting to call her sister.. Eyes contact is fair. Denies SI/SIB/HI/AVH. Speech is loud. Feeling bad , appears preoccupied, restless, racing thoughts. Thought processes disorganized, not linear. Poor and impaired judgment and insight. Diagnostics Vital Signs (24Hr): Vital Signs - 24 hr 04/14/25 20:00 04/15/25 06:59 04/15/25 08:00 Temperature 97.4 F 97.7 F 97.4 F Pulse Rate 98 77 88 Respiratory Rate 16 16 18 Blood Pressure 122/72 105/70 120/70 Pulse Oximetry 97 98 99 Oxygen Delivery Method Room Air Room Air Room Air 04/15/25 08:11 04/15/25 08:15 04/15/25 08:20 Temperature 98.1 F Pulse Rate 70 112 H 112 H Respiratory Rate 16 16 16 Blood Pressure 149/60 H 192/107 H 199/113 H Pulse Oximetry 97 97 97 Oxygen Delivery Method Room Air Room Air Room Air 04/15/25 08:25 04/15/25 08:30 04/15/25 08:45 Temperature 97.8 F Pulse Rate 110 H 109 H 105 H Respiratory Rate 16 16 16 Blood Pressure 166/94 H 142/82 H 138/86 Pulse Oximetry 97 98 98 Oxygen Delivery Method Room Air Room Air Room Air BMI result Body Mass Index 23.3 Labs 04/17/25 13:06 04/17/25 13:06 Medications Medications Current Medications Acetaminophen (Acetaminophen 325 Mg Tablet) 650 mg PO Q6H PRN PRN Reason: Headache/Pain, Scale 1-10 Al Hydroxide/Mg Hydroxide (Magnesium Hydrox/Alum Hydrox 30 Ml Oral.Susp) 30 ml PO Q6H PRN PRN Reason: Heartburn/Nausea Clotrimazole (Clotrimazole 1 % Cream 15 Gm Tube) 1 appl TOPICAL BID [facility]; Protocol Last Admin: 04/15/25 10:11 Dose: 1 appl Docusate Sodium (Docusate Sodium 100 Mg Capsule) 100 mg PO BID PRN PRN Reason: Constipation Hydroxyzine HCl (Hydroxyzine Hcl 25 Mg Tablet) 25 mg PO Q6H PRN PRN Reason: mild anxiety Last Admin: 04/14/25 15:12 Dose: 25 mg Loperamide HCl (Loperamide Hcl 2 Mg Capsule) 2 mg PO Q6H PRN PRN Reason: Diarrhea Lorazepam (Lorazepam 0.5 Mg Tablet) 0.5 mg PO TID [facility] Last Admin: 04/15/25 14:18 Dose: 0.5 mg Lorazepam (Lorazepam 0.5 Mg Tablet) 0.5 mg PO Q6H PRN PRN Reason: severe anxiety Last Admin: 04/14/25 15:58 Dose: 0.5 mg Magnesium Hydroxide (Milk Of Magnesia 30 Ml Oral.Susp) 30 ml PO DAILY PRN PRN Reason: Constipation Melatonin (Melatonin 3 Mg Tablet) 6 mg PO BEDTIME [facility] Last Admin: 04/14/25 21:27 Dose: 6 mg Nicotine (Nicotine 21 Mg Patch.Td24) 21 mg TRANSDERMA DAILY PRN PRN Reason: nicotine craving Nicotine Polacrilex (Nicotine Polacrilex 2 Mg Gum) 2 mg BUCCAL Q2H PRN PRN Reason: Nicotine Cravings Olanzapine (Olanzapine 5 Mg Tablet) 5 mg PO BID PRN PRN Reason: agitation Last Admin: 04/14/25 15:12 Dose: 5 mg Olanzapine (Olanzapine 5 Mg Tablet) 5 mg PO BID [facility] Last Admin: 04/15/25 09:18 Dose: 5 mg Omeprazole (Omeprazole 20 Mg Capsule.Dr) 20 mg PO DAILY@0630 [facility] Last Admin: 04/15/25 01:55 Dose: Not Given Ondansetron HCl (Ondansetron Odt 4 Mg Tab.Rapdis) 4 mg TRANSLINGU Q6H PRN PRN Reason: Nausea and Vomiting Thiamine HCl (Thiamine Hcl 100 Mg Tablet) 100 mg PO BID [facility] Last Admin: 04/15/25 09:18 Dose: 100 mg Trazodone HCl (Trazodone Hcl 50 Mg Tablet) 50 mg PO BEDTIME MRX1 PRN PRN Reason: Insomnia Allergies Allergies Allergy/AdvReac Type Severity Reaction Status Date / Time bee pollen Allergy Severe Anaphylaxis Verified 03/21/25 14:48 levofloxacin (From Levaquin) Allergy Severe Itching Verified 03/21/25 14:48 enoxaparin (From Lovenox) Allergy Intermediate Rash Verified 03/21/25 14:48 Seasonal Allergies Allergy Mild Runny Nose Verified 03/21/25 14:48 venlafaxine (From Effexor) Allergy Mild Constipatio Verified 03/21/25 14:48 n Penicillins Allergy Unknown Unknown Verified 03/21/25 14:48 Assessment & Plan Assessment & Plan (1) GERD (gastroesophageal reflux disease): Status: Acute Code(s): K21.9 - Gastro-esophageal reflux disease without esophagitis Plan 69-year-old female admitted from the medical floor to inpatient [facility] for continued care after she presented with catatonia and decompensated bipolar disorder Depression/bipolar 2 mixed with psychotic behavior/VITO/insomnia Treatment per psychiatric team Continues on ECT treatments Recently treated for acute hypoxic respiratory failure due to pneumonia, she completed 1 week of meropenem, also treated for UTI. GERD Continues on omeprazole Thank you for allowing me to participate in the care of this patient. Will follow with you, please notify medical provider with any changes in condition or concerns. Patient educated on: diagnosis and ECT Informed Consent: does not understand Reason for continued inpatient stay Substantial Risk for: inability to function Time Spent With Patient Time: Total time managing care of this patient today ____ minutes.
[2025-04-16 07:00] VITALS: BMI 21.4
[2025-04-16 08:00] VITALS: BP 112/68; PULSE 91; RESP 16; TEMP 36.6; O2SAT 100
[2025-04-16] MEDS: Clotrimazole 1 % Cream 15 GM TUBE 1 APPL TOPICAL (08:58)
--- NOTE | 2025-04-16 09:28 | P.PNPSI_ITS ---
Subjective Subjective Date of Service: 04/16/25 Reason For Visit: decomp Subjective Notes: Section 12B Interim History: Patient found standing in the day room. She notes that she is Not good today. She states I feel like I am burning up, for the past 3 days. She also feels like she is in hell and feel like i can't get out of hell. She reports severe anxiety and depression. She denies SI/HI/AVH. Per nursing, patient fell in the bathroom this morning and landed on her buttocks with her back against the wall. She was using her roommate's walker at the time of the fall. No injury or trauma noted. Medication Compliance: Yes Side effects from medications: No Review of Systems Acute medical concerns: No Mental Status Exam Mental Status Exam Narrative: Appearance: Casually dressed, adequate hygiene, unkempt hair Behavior: Calm and cooperative throughout the interview. Minimal eye contact, and there are no signs of psychomotor agitation or retardation Speech: Normal volume and prosody Thought process: Logical and goal-directed Thought content: Future oriented no self-harming thoughts Mood: Not good Affect: Flat SI:denies HI:denies VH/AH:none Delusions: None Insight/judgment: Impaired insight and judgment Memory/cog: Alert and oriented Diagnostics Vital Signs (24Hr): Vital Signs - 24 hr 04/15/25 20:00 Temperature 98.5 F Pulse Rate 77 Respiratory Rate 18 Blood Pressure 106/64 Pulse Oximetry 96 Oxygen Delivery Method Room Air BMI result Body Mass Index 23.3 Medications Medications Current Medications Acetaminophen (Acetaminophen 325 Mg Tablet) 650 mg PO Q6H PRN PRN Reason: Headache/Pain, Scale 1-10 Al Hydroxide/Mg Hydroxide (Magnesium Hydrox/Alum Hydrox 30 Ml Oral.Susp) 30 ml PO Q6H PRN PRN Reason: Heartburn/Nausea Clotrimazole (Clotrimazole 1 % Cream 15 Gm Tube) 1 appl TOPICAL BID [facility]; Protocol Last Admin: 04/16/25 08:58 Dose: 1 appl Docusate Sodium (Docusate Sodium 100 Mg Capsule) 100 mg PO BID PRN PRN Reason: Constipation Hydroxyzine HCl (Hydroxyzine Hcl 25 Mg Tablet) 25 mg PO Q6H PRN PRN Reason: mild anxiety Last Admin: 04/14/25 15:12 Dose: 25 mg Loperamide HCl (Loperamide Hcl 2 Mg Capsule) 2 mg PO Q6H PRN PRN Reason: Diarrhea Lorazepam (Lorazepam 0.5 Mg Tablet) 0.5 mg PO TID [facility] Last Admin: 04/16/25 08:56 Dose: 0.5 mg Lorazepam (Lorazepam 0.5 Mg Tablet) 0.5 mg PO Q6H PRN PRN Reason: severe anxiety Last Admin: 04/14/25 15:58 Dose: 0.5 mg Magnesium Hydroxide (Milk Of Magnesia 30 Ml Oral.Susp) 30 ml PO DAILY PRN PRN Reason: Constipation Melatonin (Melatonin 3 Mg Tablet) 6 mg PO BEDTIME [facility] Last Admin: 04/15/25 20:25 Dose: 6 mg Nicotine (Nicotine 21 Mg Patch.Td24) 21 mg TRANSDERMA DAILY PRN PRN Reason: nicotine craving Nicotine Polacrilex (Nicotine Polacrilex 2 Mg Gum) 2 mg BUCCAL Q2H PRN PRN Reason: Nicotine Cravings Olanzapine (Olanzapine 5 Mg Tablet) 5 mg PO BID PRN PRN Reason: agitation Last Admin: 04/14/25 15:12 Dose: 5 mg Olanzapine (Olanzapine 5 Mg Tablet) 5 mg PO BID [facility] Last Admin: 04/16/25 08:56 Dose: 5 mg Omeprazole (Omeprazole 20 Mg Capsule.Dr) 20 mg PO DAILY@0630 [facility] Last Admin: 04/16/25 06:08 Dose: 20 mg Ondansetron HCl (Ondansetron Odt 4 Mg Tab.Rapdis) 4 mg TRANSLINGU Q6H PRN PRN Reason: Nausea and Vomiting Thiamine HCl (Thiamine Hcl 100 Mg Tablet) 100 mg PO BID [facility] Last Admin: 04/16/25 08:56 Dose: 100 mg Trazodone HCl (Trazodone Hcl 50 Mg Tablet) 50 mg PO BEDTIME MRX1 PRN PRN Reason: Insomnia Allergies Allergies Allergy/AdvReac Type Severity Reaction Status Date / Time bee pollen Allergy Severe Anaphylaxis Verified 03/21/25 14:48 levofloxacin (From Levaquin) Allergy Severe Itching Verified 03/21/25 14:48 enoxaparin (From Lovenox) Allergy Intermediate Rash Verified 03/21/25 14:48 Seasonal Allergies Allergy Mild Runny Nose Verified 03/21/25 14:48 venlafaxine (From Effexor) Allergy Mild Constipatio Verified 03/21/25 14:48 n Penicillins Allergy Unknown Unknown Verified 03/21/25 14:48 Assessment & Plan Assessment & Plan (1) GERD (gastroesophageal reflux disease): Status: Acute Code(s): K21.9 - Gastro-esophageal reflux disease without esophagitis Plan 69-year-old female admitted from the medical [facility] after she presented with catatonia and decompensated bipolar disorder Depression/bipolar 2 mixed with psychotic behavior/VITO/insomnia Treatment per psychiatric team Continues on ECT treatments Recently treated for acute hypoxic respiratory failure due to pneumonia, she completed 1 week of meropenem, also treated for UTI. GERD Continues on omeprazole Thank you for allowing me to participate in the care of this patient. Will foll ow with you, please notify medical provider with any changes in condition or concerns. 04/16: Continue current treatment regimen. Encouraged to use her walker for ambulation at all times. Verbalized understanding and agrees with the plan. Patient educated on: therapeutic strategies Reason for continued inpatient stay Substantial Risk for: rapid decompensation Time Spent With Patient Time: Total time managing care of this patient today ____ minutes.
[2025-04-16 14:45] LABS: Folate 9.6 ng/mL (> or = 4.0); Vitamin B12 741 pg/mL (200-900)
[2025-04-16 15:01] VITALS: BP 106/67; PULSE 90; RESP 16; TEMP 36.6; O2SAT 99
--- NOTE | 2025-04-16 18:09 | PC.NURSE ---
Patient is s/p witnessed fall in the bathroom, fell on her bottom. Didn't hit her head. Neuros and VS wnl. Alert and oriented x4. Pleasant and calm. Utilizes walker for ambulation, gait steady. Pt denies pain. Sister Jennifer Robertson notified by phone. Will continue to monitor.
[2025-04-16 19:42] VITALS: BP 90/51; PULSE 83; RESP 16; TEMP 36.6; O2SAT 97
[2025-04-17 07:18] LABS: Glucose, Whole Blood 99 mg/dL (60-115)
[2025-04-17 07:25] VITALS: BP 128/102; PULSE 81; RESP 16; TEMP 36.6; O2SAT 98
--- NOTE | 2025-04-17 07:26 | P.EN_ITS ---
Event Note Date of Service: 04/17/25 Event Note: RAPID RESPONSE NOTE Date/Time of Event: 07:00 Location: [facility] psych Provider Responding: Myself Primary Team / Attending Notified: No Reason for Rapid Response * Unwitnessed Fall Patient was found this morning on her back on the floor by her roommate, and notified nurses. The patient is unable to recall how she fell. No history of syncope. Denies chest pain, palpitations, dizziness, diaphoresis. Denies persistent symptomology. Initial Assessment Patient Position / Appearance: Seated in bed, soiled Level of Consciousness: Alert and responsive, not in pain Airway: Airway patent, no concerns Breathing: Respiratory rate 12 breaths per minute, normal effort, normal oxygen saturations, lungs clear Circulation: Heart rate 70-80 beats per minute, blood pressure 120 systolic, regularly regular rhythm. Well perfused Neuro: No focal neurological deficits noted, pupils normal equal. Strength 5/5 throughout all extremities, sensation normal throughout, EOMI. Skin: No wounds, no new ecchymosis, no bleeding MSK: No pain on bony prominences, no MSK pain on palpation of all bony prominences/ joints/ large bones/ chest/ribs Lines / Tubes / Devices: None Interventions Performed * Airway / Breathing: None * Circulation: None * Medications Given: None * Labs / Imaging Ordered: CT brain without IV contrast * Consults Activated: None Response to Interventions * Condition : Unchanged * Repeat Vitals: Stable * Mental Status Change: None * Clinical Impression: Mechanical fall suspected Disposition * Remained on unit ? stable Receiving Provider / Unit: N/A Handoff Completed With: Nurse on staff Summary / Impression Likely mechanical fall, as patient stood up on her own and mobilized in the dark. Similar event occurring yesterday, attributed to a mechanical fall. Patient is not on anticoagulation currently. In the setting of unwitnessed fall with head strike, CT brain without IV contrast ordered for further evaluation. All other systems within normal limits; no further concerns Plan / Follow-up * Continue monitoring * Consider orthostatics * CT brain without IV contrast * Re-evaluate in 2 hours Time Spent With Patient Time: Total time managing care of this patient today 30 minutes.
--- NOTE | 2025-04-17 08:29 | P.PNIM_ITS ---
Subjective Subjective Date of Service: 04/17/25 Interval History: Patient was seen follow up for 2 recent falls. On 04/16 patient had a witnessed fall in the bathroom which she did not hit her head. Her neuro and vitals were within normal limits. This morning at 07:00 patient had an unwitnessed fall in her bathroom. BAKERY MACHINE MECHANIC SUPERVISOR was called, CT head performed which was negative. Patient denies any pain on exam, moving all extremities. She has a 1:1 for safety. No visible bruising or evidence of injury. Patient reports she does not ?feel good ? Denies any shortness of breath, denies any chest pain, denies any abdominal pain, dysuria, cough. Her vitals have been stable. Review of Systems Denies shortness of breath, cough, chest pain, dizziness, dysuria, constipation or other concerning symptoms. Physical Exam 2 Exam: Exam: CONST: Alert and oriented, in NAD. Well nourished HEENT: Normocephalic, atraumatic, MMM, Eyes clear, Neck supple RESP: Lungs clear, RRR even and regular HEART:,RRR, S1, S2. No edema GI:Abdomen Soft NT, ND. + BS times four :Deferred SKIN: Warm dry and intact, no visible lesions or rashes. No bruising reported NEURO:CN II-XII Intact bilaterally, Sensation intact. Speech clear PSYCH: Flat affect, answers appropriately Vital Signs: Vital Signs: Last Vital Signs Temp 97.8 F 04/17/25 07:25 Pulse 81 04/17/25 07:25 Resp 16 04/17/25 07:25 BP 128/102 H 04/17/25 07:25 Pulse Ox 98 04/17/25 07:25 O2 Del Method Room Air 04/17/25 07:25 BMI result Body Mass Index 21.4 Objective Data Active Medications Acetaminophen (Acetaminophen 325 Mg Tablet) 650 mg PO Q6H PRN PRN Reason: Headache/Pain, Scale 1-10 Al Hydroxide/Mg Hydroxide (Magnesium Hydrox/Alum Hydrox 30 Ml Oral.Susp) 30 ml PO Q6H PRN PRN Reason: Heartburn/Nausea Clotrimazole (Clotrimazole 1 % Cream 15 Gm Tube) 1 appl TOPICAL BID [facility]; Protocol Last Admin: 04/16/25 22:28 Dose: Not Given Documented By: DAVID Non-Admin Reason: Patient Refused Docusate Sodium (Docusate Sodium 100 Mg Capsule) 100 mg PO BID PRN PRN Reason: Constipation Hydroxyzine HCl (Hydroxyzine Hcl 25 Mg Tablet) 25 mg PO Q6H PRN PRN Reason: mild anxiety Last Admin: 04/14/25 15:12 Dose: 25 mg Documented By: WILIAN Lactated Ringer's (Lr) 1,000 mls @ 50 mls/hr IVCONT .Q20H [facility] Loperamide HCl (Loperamide Hcl 2 Mg Capsule) 2 mg PO Q6H PRN PRN Reason: Diarrhea Lorazepam (Lorazepam 0.5 Mg Tablet) 0.5 mg PO TID [facility] Last Admin: 04/16/25 20:27 Dose: 0.5 mg Documented By: DAVID Lorazepam (Lorazepam 0.5 Mg Tablet) 0.5 mg PO Q6H PRN PRN Reason: severe anxiety Last Admin: 04/14/25 15:58 Dose: 0.5 mg Documented By: WILIAN Magnesium Hydroxide (Milk Of Magnesia 30 Ml Oral.Susp) 30 ml PO DAILY PRN PRN Reason: Constipation Melatonin (Melatonin 3 Mg Tablet) 6 mg PO BEDTIME [facility] Last Admin: 04/16/25 20:27 Dose: 6 mg Documented By: DAVID Naloxone HCl (Naloxone Hcl 0.4 Mg/Ml Vial) 0.04 mg IVPUSH Q5M PRN PRN Reason: Excessive sedation or RR < 8 Naloxone HCl (Naloxone Hcl 0.4 Mg/Ml Vial) 0.04 mg IVPUSH Q5M PRN PRN Reason: Excessive sedation or RR < 8 Nicotine (Nicotine 21 Mg Patch.Td24) 21 mg TRANSDERMA DAILY PRN PRN Reason: nicotine craving Nicotine Polacrilex (Nicotine Polacrilex 2 Mg Gum) 2 mg BUCCAL Q2H PRN PRN Reason: Nicotine Cravings Olanzapine (Olanzapine 5 Mg Tablet) 5 mg PO BID PRN PRN Reason: agitation Last Admin: 04/14/25 15:12 Dose: 5 mg Documented By: WILIAN Olanzapine (Olanzapine 5 Mg Tablet) 5 mg PO BID [facility] Last Admin: 04/16/25 20:27 Dose: 5 mg Documented By: DAVID Omeprazole (Omeprazole 20 Mg Capsule.Dr) 20 mg PO DAILY@0630 [facility] Last Admin: 04/17/25 05:35 Dose: Not Given Documented By: DAVID Non-Admin Reason: Pt NPO Ondansetron HCl (Ondansetron Odt 4 Mg Tab.Rapdis) 4 mg TRANSLINGU Q6H PRN PRN Reason: Nausea and Vomiting Thiamine HCl (Thiamine Hcl 100 Mg Tablet) 100 mg PO BID [facility] Last Admin: 04/16/25 20:27 Dose: 100 mg Documented By: DAVID Trazodone HCl (Trazodone Hcl 50 Mg Tablet) 50 mg PO BEDTIME MRX1 PRN PRN Reason: Insomnia Labs 04/17/25 13:06 04/17/25 13:06 Labs: Laboratory Results - last 24 hr 04/16/25 04/17/25 12:17 07:09 Anion Gap Cancelled Estim Creat Clear Calc Cancelled Estimated GFR Cancelled POC Glucose 99 Random Glucose Cancelled Estimat Average Glucose Cancelled Hemoglobin A1c % Cancelled Calcium Cancelled Total Bilirubin Cancelled AST Cancelled ALT Cancelled Alkaline Phosphatase Cancelled Total Protein Cancelled Albumin Cancelled Triglycerides Cancelled Cholesterol Cancelled LDL Cholesterol, Calc Cancelled HDL Cholesterol Cancelled Vitamin B12 741 Folate 9.6 TSH Cancelled Free T4 Cancelled Assessment and Plan (1) Catatonia: Status: Acute Plan 69-year-old female admitted from the medical floor to inpatient [facility] for continued care after she presented with catatonia and decompensated bipolar disorder Depression/bipolar 2 mixed with psychotic behavior/VITO/insomnia Treatment per psychiatric team Continues on ECT treatments Recently treated for acute hypoxic respiratory failure due to pneumonia, she completed 1 week of meropenem, also treated for UTI. Falls Patient has had two falls 04/16 and 04/[address] negative, no evidence of injury. Moves all extremities. CBC and BMP negative for any acute abnormalities UA to rule out medical etiology due to multiple falls. Urine pending GERD Continues on omeprazole Thank you for allowing me to participate in the care of this patient. Will follow with you, please notify medical provider with any changes in condition or concerns. Quality Stroke Does the patient have a stroke diagnosis?: No VTE Prior VTE?: No VTE Risk Level:: Medical - low VTE Device Contraindication: Treatment Not Indicated VTE Drug Contraindication: Treatment Not Indicated
--- NOTE | 2025-04-17 11:17 | PC.NURSE ---
Pt call gomez was signaled and RN approached pt room. Staff members sat pt on her bed and notified this RN of pt having an unwitnessed fall in her bathroom. ANTHROPOLOGIST was called and pt was assessed. Pt was asymptomatic and reported no pain. Pt VS WNL. CT w/o contrast was ordered per protocol. Pt was placed on a 1:1 d/t unsteady gait and risk for safety. Clinical coordinator and provider Pauly Box notified by primary RN.
[2025-04-17] MEDS: Clotrimazole 1 % Cream 15 GM TUBE 1 APPL TOPICAL ×2 (11:31→19:55)
[2025-04-17 11:36] VITALS: BP 128/102; PULSE 81; RESP 16; TEMP 36.6; O2SAT 98
[2025-04-17 13:07] LABS: MANUAL DIFF FLAG NO
[2025-04-17 13:16] LABS: Hematocrit 35.7 % (37.0-47.0); Hemoglobin 11.5 g/dl (12.0-16.0); Imm Gran Abs Auto 0.07 X10*3/uL (0.00-0.03); Imm Gran Pct Auto 1.0 % (0.0-0.4); Lymphocytes Absolute Auto 2.2 X10*3/uL (1.2-4.9); Mean Corpuscular HGB Conc 32.2 g/dl (31.0-35.0); Mean Corpuscular Hemoglobin 30.2 pg (27.0-33.0); Mean Corpuscular Volume 93.7 fL (80.0-98.0); NRBC Abs Auto 0.000 X10*3/uL (0.0-0.012); NRBC Pct Auto 0.0 /100WBC (0.0-0.2); Platelet Count 476 X10*3/uL (160-400); Red Blood Count 3.81 X10*6/uL (4.20-5.50); White Blood Count 7.1 X10*3/uL (4.8-10.8)
[2025-04-17 13:23] LABS: Anion Gap 11 (12-20); Blood Urea Nitrogen 13 mg/dL (9-16); Calcium 9.2 mg/dL (8.4-10.2); Carbon Dioxide 25 mmol/L (22-29); Chloride 111 mmol/L (96-108); Creatinine Clr Calc Pharmacy 87.0; Estimated Glomerular Filt Rate > 60; Potassium 4.2 mmol/L (3.3-5.1); Sodium 143 mmol/L (135-145)
--- NOTE | 2025-04-17 13:28 | PC.NURSE ---
Patient c/o ill fitting lower denture. Removed denture and placed in patient belongings. Edited on Belongings list. Patient has 1 upper and 1 lower in room. Lower denture does not have her name it it. Attempting to call sister Jennifer to inform her of need for denture refit.
[2025-04-17 15:28] LABS: Appearance Urine Clear; Glucose Urine UA Negative (Negative); PH 6.0 (5.0-9.0); Specific Gravity - Urine 1.025 (1.005-1.025); UMIC TRIGGER UA YES
[2025-04-17 15:52] LABS: Other Crystals Urine Present
[2025-04-17] MEDS: Milk of Magnesia 30 ML ORAL.SUSP PO (17:00)
[2025-04-17 19:51] VITALS: BP 115/69; PULSE 90; RESP 16; TEMP 36.2; O2SAT 99
[2025-04-17] MEDS: Magnesium Hydrox/Alum Hydrox 30 ML ORAL.SUSP PO (19:56)
--- NOTE | 2025-04-18 01:56 | HO.PSYCHPN ---
Subjective Subjective Date of Service: 04/17/25 Reason For Visit: decomp Interim History: late entry note for 04/17; met with patient; discussed with team This morning, patient had an unwitnessed fall; technical proposal writer discuss this with her and she said she did not hit her head. Patient however did eat some breakfast this morning and was not able to get ECT Patient a little more redirectable regarding ECT. Initially she said she did not want it but then technical proposal writer explained her presentation prior to ECT, how she was not talking or eating or moving... And how now, with ECT she is doing much better. Patient paused and seemed to consider and said okay to getting ECT Mental Status Exam Mental Status Exam Narrative: Appearance: Casually dressed, adequate hygiene, unkempt hair Behavior: Calm and cooperative throughout the interview. Minimal eye contact, and there are no signs of psychomotor agitation or retardation Speech: Normal volume and prosody Thought process: More organized and more goal-directed Thought content: About seeing her sister; treatment Mood: ok Affect: Blunted SI: None HI: None VH/AH:none Delusions: None expressed Insight/judgment: Impaired insight and judgment Memory/cog: Alert and oriented Diagnostics Vital Signs (24Hr): Vital Signs - 24 hr 04/17/25 07:25 04/17/25 11:36 04/17/25 19:51 Temperature 97.8 F 97.8 F 97.2 F Pulse Rate 81 81 90 Respiratory Rate 16 16 16 Blood Pressure 128/102 H 128/102 H 115/69 Pulse Oximetry 98 98 99 Oxygen Delivery Method Room Air Room Air BMI result Body Mass Index 21.4 Labs 04/17/25 13:06 04/17/25 13:06 Labs: Laboratory Results - last 48 hr 04/16/25 04/17/25 04/17/25 12:17 07:09 13:06 WBC 7.1 RBC 3.81 L Hgb 11.5 L Hct 35.7 L MCV 93.7 MCH 30.2 MCHC 32.2 RDW 15.1 Plt Count 476 H D MPV 8.4 L Immature Gran % (Auto) 1.0 H Neut % (Auto) 57.0 Lymph % (Auto) 31.7 [place] % (Auto) 8.6 Eos % (Auto) 1.0 Baso % (Auto) 0.7 Lymph # (Auto) 2.2 [place] # (Auto) 0.6 Eos # (Auto) 0.1 Baso # (Auto) 0.1 Abs Immat Gran (auto) 0.07 H Absolute Neuts (auto) 4.0 Absolute Nucleated RBC 0.000 Nucleated RBC % (auto) 0.0 Sodium Cancelled 143 Potassium Cancelled 4.2 Chloride Cancelled 111 H Carbon Dioxide Cancelled 25 Anion Gap Cancelled 11 L BUN Cancelled 13 Creatinine Cancelled 0.61 Estim Creat Clear Calc Cancelled 87.0 Estimated GFR Cancelled > 60 POC Glucose 99 Random Glucose Cancelled 78 Estimat Average Glucose Cancelled Hemoglobin A1c % Cancelled Calcium Cancelled 9.2 Total Bilirubin Cancelled AST Cancelled ALT Cancelled Alkaline Phosphatase Cancelled Total Protein Cancelled Albumin Cancelled Triglycerides Cancelled Cholesterol Cancelled LDL Cholesterol, Calc Cancelled HDL Cholesterol Cancelled Vitamin B12 741 Folate 9.6 TSH Cancelled Free T4 Cancelled Urine Color Urine Appearance Urine pH Ur Specific [place] Urine Protein Urine Glucose (UA) Urine Ketones Urine Blood Urine Nitrite Ur Leukocyte Esterase Urine RBC Urine WBC Ur Squamous Epith Cells Calcium Oxalate Crystal Other Crystals Urine Bacteria Hyaline Casts 04/17/25 15:10 WBC RBC Hgb Hct MCV MCH MCHC RDW Plt Count MPV Immature Gran % (Auto) Neut % (Auto) Lymph % (Auto) [place] % (Auto) Eos % (Auto) Baso % (Auto) Lymph # (Auto) [place] # (Auto) Eos # (Auto) Baso # (Auto) Abs Immat Gran (auto) Absolute Neuts (auto) Absolute Nucleated RBC Nucleated RBC % (auto) Sodium Potassium Chloride Carbon Dioxide Anion Gap BUN Creatinine Estim Creat Clear Calc Estimated GFR POC Glucose Random Glucose Estimat Average Glucose Hemoglobin A1c % Calcium Total Bilirubin AST ALT Alkaline Phosphatase Total Protein Albumin Triglycerides Cholesterol LDL Cholesterol, Calc HDL Cholesterol Vitamin B12 Folate TSH Free T4 Urine Color Yellow Urine Appearance Clear Urine pH 6.0 Ur Specific [place] 1.025 Urine Protein Negative Urine Glucose (UA) Negative Urine Ketones Negative Urine Blood Negative Urine Nitrite Negative Ur Leukocyte Esterase Trace H Urine RBC 0-2 Urine WBC 0-5 Ur Squamous Epith Cells 3-5 Calcium Oxalate Crystal Present Other Crystals Present Urine Bacteria None Seen Hyaline Casts 0-2 Imaging Radiology Impressions: ITS Impressions Head CT 04/17/25 09:49 IMPRESSION: Stable exam. No acute intracranial findings. Electronically signed by: Massiel Tucker MD 04/17/2025 10:22 AM EDT RP Medications Medications Current Medications Acetaminophen (Acetaminophen 325 Mg Tablet) 650 mg PO Q6H PRN PRN Reason: Headache/Pain, Scale 1-10 Al Hydroxide/Mg Hydroxide (Magnesium Hydrox/Alum Hydrox 30 Ml Oral.Susp) 30 ml PO Q6H PRN PRN Reason: Heartburn/Nausea Last Admin: 04/17/25 19:56 Dose: 30 ml Clotrimazole (Clotrimazole 1 % Cream 15 Gm Tube) 1 appl TOPICAL BID [facility]; Protocol Last Admin: 04/17/25 19:55 Dose: 1 appl Docusate Sodium (Docusate Sodium 100 Mg Capsule) 100 mg PO BID PRN PRN Reason: Constipation Hydroxyzine HCl (Hydroxyzine Hcl 25 Mg Tablet) 25 mg PO Q6H PRN PRN Reason: mild anxiety Last Admin: 04/14/25 15:12 Dose: 25 mg Lactated Ringer's (Lr) 1,000 mls @ 50 mls/hr IVCONT .Q20H [facility] Last Admin: 04/17/25 15:44 Dose: Not Given Loperamide HCl (Loperamide Hcl 2 Mg Capsule) 2 mg PO Q6H PRN PRN Reason: Diarrhea Lorazepam (Lorazepam 0.5 Mg Tablet) 0.5 mg PO TID [facility] Last Admin: 04/17/25 19:54 Dose: 0.5 mg Lorazepam (Lorazepam 0.5 Mg Tablet) 0.5 mg PO Q6H PRN PRN Reason: severe anxiety Last Admin: 04/14/25 15:58 Dose: 0.5 mg Magnesium Hydroxide (Milk Of Magnesia 30 Ml Oral.Susp) 30 ml PO DAILY PRN PRN Reason: Constipation Last Admin: 04/17/25 17:00 Dose: 30 ml Melatonin (Melatonin 3 Mg Tablet) 6 mg PO BEDTIME [facility] Last Admin: 04/17/25 19:54 Dose: 6 mg Naloxone HCl (Naloxone Hcl 0.4 Mg/Ml Vial) 0.04 mg IVPUSH Q5M PRN PRN Reason: Excessive sedation or RR < 8 Naloxone HCl (Naloxone Hcl 0.4 Mg/Ml Vial) 0.04 mg IVPUSH Q5M PRN PRN Reason: Excessive sedation or RR < 8 Nicotine (Nicotine 21 Mg Patch.Td24) 21 mg TRANSDERMA DAILY PRN PRN Reason: nicotine craving Nicotine Polacrilex (Nicotine Polacrilex 2 Mg Gum) 2 mg BUCCAL Q2H PRN PRN Reason: Nicotine Cravings Olanzapine (Olanzapine 5 Mg Tablet) 5 mg PO BID PRN PRN Reason: agitation Last Admin: 04/14/25 15:12 Dose: 5 mg Olanzapine (Olanzapine 5 Mg Tablet) 5 mg PO BID [facility] Last Admin: 04/17/25 19:54 Dose: 5 mg Omeprazole (Omeprazole 20 Mg Capsule.Dr) 20 mg PO DAILY@0630 [facility] Last Admin: 04/17/25 05:35 Dose: Not Given Ondansetron HCl (Ondansetron Odt 4 Mg Tab.Rapdis) 4 mg TRANSLINGU Q6H PRN PRN Reason: Nausea and Vomiting Thiamine HCl (Thiamine Hcl 100 Mg Tablet) 100 mg PO BID [facility] Last Admin: 04/17/25 19:53 Dose: 100 mg Trazodone HCl (Trazodone Hcl 50 Mg Tablet) 50 mg PO BEDTIME MRX1 PRN PRN Reason: Insomnia Allergies Allergies Allergy/AdvReac Type Severity Reaction Status Date / Time bee pollen Allergy Severe Anaphylaxis Verified 03/21/25 14:48 levofloxacin (From Levaquin) Allergy Severe Itching Verified 03/21/25 14:48 enoxaparin (From Lovenox) Allergy Intermediate Rash Verified 03/21/25 14:48 Seasonal Allergies Allergy Mild Runny Nose Verified 03/21/25 14:48 venlafaxine (From Effexor) Allergy Mild Constipatio Verified 03/21/25 14:48 n Penicillins Allergy Unknown Unknown Verified 03/21/25 14:48 Assessment & Plan Assessment & Plan (1) Catatonia: Status: Acute Code(s): F06.1 - Catatonic disorder due to known physiological condition Plan HPI: patient is a 69 yo female with hx history of UTI, depression, bipolar 1 depression, osteoarthritis, status post cardiac catheterization, anxiety, GERD, insomnia, osteopenia, 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 Patient has been at [facility] for approximately 3 weeks. Patient originally seen in [facility] after patient called 911. Prior to that patient had a puppy but could no longer care for the puppy and the puppy was taken away. Patient appeared to have a breakdown and was calling sister incessantly regarding the puppy and apparently called 911 out of distress. Patient was transferred to [facility] on a section 12 from [facility] for MDD, intrusive thoughts and auditory hallucinations. She was on Med floor from 03/20/25 to 04/14/25: Patient was admitted for bipolar disorder with catatonia moderate protein calorie malnutrition. Was treated with IV Valium, multiple ECTs, was supported with parenteral nutrition. Slowly patient had improvement, became more verbal, more participatory and diet significantly increased and was able to be weaned off parenteral nutrition. Was seen by Psychiatry who adjusted medications. Patient is still having significant acute psychiatric issues so will be discharged to inpatient psych. During hospitalization patient did have episode of acute hypoxic respiratory failure possibly due to pneumonia and completed 1 week of ertapenem. Formulation/clinical reasoning: Continue presenting with manic/psychotic/catatonia features. Just recently taking PO medication the past 2-3 days plus starting eating, advance to regular diet prior to transferred to . Hospital course: 04/14/25: Continue with ECT -- as scheduled Ativan 0.5mg TID PO for anxiety/catatonia. Ativan 0.5mg BID PRN For severe anxiety Increase Zypexa 2.5 BID to 5mg BID to target psychotic/bipolar symptoms. BID PRN for severe agitation 04/16: Continue current treatment regimen. Encouraged to use her walker for ambulation at all times. Verbalized understanding and agrees with the plan. 04/17 missed ECT today since she ate breakfast; also had a witnessed fall but patient said she did not hit her head, neuro checks unremarkable. Patient showing some signs of improvement and more organized in speech today. Discussed ECT with her and she seemed to accept that she is better for said okay to continuing 04/18/25: Patient slept for 7 hours, compliant with medications, remain on 1-1 for for risk. Reports passive SI, reports heartburn. Given Tums, and other PRNs for anxiety, racing thoughts, severe anxiety. Usually lies a lot of PRNs. She is negative, not future focus I do not want to be here. Nobody helping me . U/A on 04/17/25 seemed fine. No UTI. Given extra Ativan 1mg and Zyprexa 5mg x1 today for severe anxiety and racing thoughts. 04/19/25: Patient slept better, remain on 1-1. No falls. Patient is negative, feeling like she is dying and not getting better. Passive SI I do not want to live anymore. I do not want to be here. I think I am going to hell . Patient does not want to having ECT tomorrow is not helping me. Make me worse . Reports depression anxiety. Patient encouraged to eat, need lots of direction and encouragement, and assurance. However, overall, patient is better than yesterday. Plan: Continues on ECT treatments Recently treated for acute hypoxic respiratory failure due to pneumonia, she completed 1 week of meropenem, also treated for UTI. Falls Patient has had two falls 04/16 and 04/[address] negative, no evidence of injury. Moves all extremities. CBC and BMP negative for any acute abnormalities UA to rule out medical etiology due to multiple falls. Urine pending GERD Continues on omeprazole Patient educated on: diagnosis and ECT Informed Consent: understands, does not understand and further education needed Reason for continued inpatient stay Substantial Risk for: inability to function and med/psych decompensation Time Spent With Patient Time: Total time managing care of this patient today ____ minutes.
[2025-04-18 08:00] VITALS: BP 139/60; PULSE 88; RESP 18; TEMP 36.6; O2SAT 96
[2025-04-18] MEDS: Magnesium Hydrox/Alum Hydrox 30 ML ORAL.SUSP PO (09:18)
[2025-04-18] MEDS: Clotrimazole 1 % Cream 15 GM TUBE 1 APPL TOPICAL (09:27)
[2025-04-18] MEDS: Milk of Magnesia 30 ML ORAL.SUSP PO (17:10)
[2025-04-18 19:46] VITALS: BP 97/52; PULSE 84; TEMP 36.7; O2SAT 95
--- NOTE | 2025-04-18 20:26 | P.PNPSI_ITS ---
Subjective Subjective Date of Service: 04/18/25 Reason For Visit: decomp Subjective Notes: Conditional Voluntary (by HCP) Healthcare Proxy: Yes Guardianship: No Medical Problems Affecting Mental Status: No Interim History: Medical record and nursing notes reviewed; case discussed during rounds with team/nursing staff, and met with patient for supportive therapy/psychoeducation, as well as medication management. Patient slept for 7 hours, compliant with medications, remain on 1-1 for for risk. Reports passive SI, reports heartburn. Given Tums, and other PRNs for anxiety, racing thoughts, severe anxiety. Usually lies a lot of PRNs. She is negative, not future focus I do not want to be here. Nobody helping me . Medication Compliance: Yes Side effects from medications: No Attending Groups: No Review of Systems Acute medical concerns: No Medical Review of Systems: unchanged Review of Systems Review of Systems Denies any shortness of breath, chest pain, headaches, dysuria, abdominal pain or discomfort, nausea, vomiting or diarrhea. Report heart burn. Mental Status Exam Mental Status Exam Narrative: Appearance: Casually dressed, adequate hygiene, unkempt hair Behavior: anxious but cooperative throughout the interview. Tense to fair eye contact, and there are no signs of psychomotor agitation or retardation Speech: Normal rate with pressure Thought process: disorganized Thought content: Not Future oriented but no self-harming thoughts Mood: anxious and depressed Affect: Flat SI:passive SI HI:denies VH/AH:none Delusions: None Insight/judgment: Impaired insight and judgment Memory/cog: Alert and oriented Patient Appearance: Unkempt Diagnostics Vital Signs (24Hr): Vital Signs - 24 hr 04/18/25 08:00 04/18/25 19:46 Temperature 98 F 98.1 F Pulse Rate 88 84 Respiratory Rate 18 Blood Pressure 139/60 97/52 L Pulse Oximetry 96 95 Oxygen Delivery Method Room Air Room Air BMI result Body Mass Index 21.4 Labs 04/17/25 13:06 04/17/25 13:06 Labs: Laboratory Results - last 48 hr 04/17/25 04/17/25 04/17/25 07:09 13:06 15:10 WBC 7.1 RBC 3.81 L Hgb 11.5 L Hct 35.7 L MCV 93.7 MCH 30.2 MCHC 32.2 RDW 15.1 Plt Count 476 H D MPV 8.4 L Immature Gran % (Auto) 1.0 H Neut % (Auto) 57.0 Lymph % (Auto) 31.7 [place] % (Auto) 8.6 Eos % (Auto) 1.0 Baso % (Auto) 0.7 Lymph # (Auto) 2.2 [place] # (Auto) 0.6 Eos # (Auto) 0.1 Baso # (Auto) 0.1 Abs Immat Gran (auto) 0.07 H Absolute Neuts (auto) 4.0 Absolute Nucleated RBC 0.000 Nucleated RBC % (auto) 0.0 Sodium 143 Potassium 4.2 Chloride 111 H Carbon Dioxide 25 Anion Gap 11 L BUN 13 Creatinine 0.61 Estim Creat Clear Calc 87.0 Estimated GFR > 60 POC Glucose 99 Random Glucose 78 Calcium 9.2 Urine Color Yellow Urine Appearance Clear Urine pH 6.0 Ur Specific [place] 1.025 Urine Protein Negative Urine Glucose (UA) Negative Urine Ketones Negative Urine Blood Negative Urine Nitrite Negative Ur Leukocyte Esterase Trace H Urine RBC 0-2 Urine WBC 0-5 Ur Squamous Epith Cells 3-5 Calcium Oxalate Crystal Present Other Crystals Present Urine Bacteria None Seen Hyaline Casts 0-2 Imaging Radiology Impressions: ITS Impressions Head CT 04/17/25 09:49 IMPRESSION: Stable exam. No acute intracranial findings. Electronically signed by: Massiel Tucker MD 04/17/2025 10:22 AM EDT Medications Medications Current Medications Acetaminophen (Acetaminophen 325 Mg Tablet) 650 mg PO Q6H PRN PRN Reason: Headache/Pain, Scale 1-10 Last Admin: 04/18/25 17:10 Dose: 650 mg Al Hydroxide/Mg Hydroxide (Magnesium Hydrox/Alum Hydrox 30 Ml Oral.Susp) 30 ml PO Q6H PRN PRN Reason: Heartburn/Nausea Last Admin: 04/18/25 09:18 Dose: 30 ml Calcium Carbonate (Calcium Carbonate 750 Mg Tab.Chew) 750 mg PO Q6H PRN PRN Reason: Heartburn Last Admin: 04/18/25 17:10 Dose: 750 mg Clotrimazole (Clotrimazole 1 % Cream 15 Gm Tube) 1 appl TOPICAL BID GRECIA; Protocol Last Admin: 04/18/25 09:27 Dose: 1 appl Docusate Sodium (Docusate Sodium 100 Mg Capsule) 100 mg PO BID PRN PRN Reason: Constipation Last Admin: 04/18/25 15:29 Dose: 100 mg Hydroxyzine HCl (Hydroxyzine Hcl 25 Mg Tablet) 25 mg PO Q6H PRN PRN Reason: mild anxiety Last Admin: 04/18/25 10:40 Dose: 25 mg Loperamide HCl (Loperamide Hcl 2 Mg Capsule) 2 mg PO Q6H PRN PRN Reason: Diarrhea Lorazepam (Lorazepam 0.5 Mg Tablet) 0.5 mg PO TID [facility] Last Admin: 04/18/25 14:26 Dose: 0.5 mg Lorazepam (Lorazepam 1 Mg Tablet) 1 mg PO Q6H PRN PRN Reason: severe anxiety Magnesium Hydroxide (Milk Of Magnesia 30 Ml Oral.Susp) 30 ml PO DAILY PRN PRN Reason: Constipation Last Admin: 04/18/25 17:10 Dose: 30 ml Melatonin (Melatonin 3 Mg Tablet) 6 mg PO BEDTIME [facility] Last Admin: 04/17/25 19:54 Dose: 6 mg Naloxone HCl (Naloxone Hcl 0.4 Mg/Ml Vial) 0.04 mg IVPUSH Q5M PRN PRN Reason: Excessive sedation or RR < 8 Naloxone HCl (Naloxone Hcl 0.4 Mg/Ml Vial) 0.04 mg IVPUSH Q5M PRN PRN Reason: Excessive sedation or RR < 8 Nicotine (Nicotine 21 Mg Patch.Td24) 21 mg TRANSDERMA DAILY PRN PRN Reason: nicotine craving Nicotine Polacrilex (Nicotine Polacrilex 2 Mg Gum) 2 mg BUCCAL Q2H PRN PRN Reason: Nicotine Cravings Olanzapine (Olanzapine 5 Mg Tablet) 5 mg PO BID PRN PRN Reason: agitation Last Admin: 04/18/25 15:10 Dose: 5 mg Olanzapine (Olanzapine 5 Mg Tablet) 5 mg PO BID [facility] Last Admin: 04/18/25 08:35 Dose: 5 mg Omeprazole (Omeprazole 20 Mg Capsule.Dr) 20 mg PO DAILY@0630 [facility] Last Admin: 04/18/25 05:31 Dose: 20 mg Ondansetron HCl (Ondansetron Odt 4 Mg Tab.Rapdis) 4 mg TRANSLINGU Q6H PRN PRN Reason: Nausea and Vomiting Last Admin: 04/18/25 17:10 Dose: 4 mg Thiamine HCl (Thiamine Hcl 100 Mg Tablet) 100 mg PO BID [facility] Last Admin: 04/18/25 08:35 Dose: 100 mg Trazodone HCl (Trazodone Hcl 50 Mg Tablet) 50 mg PO BEDTIME MRX1 PRN PRN Reason: Insomnia Allergies Allergies Allergy/AdvReac Type Severity Reaction Status Date / Time bee pollen Allergy Severe Anaphylaxis Verified 03/21/25 14:48 levofloxacin (From Levaquin) Allergy Severe Itching Verified 03/21/25 14:48 enoxaparin (From Lovenox) Allergy Intermediate Rash Verified 03/21/25 14:48 Seasonal Allergies Allergy Mild Runny Nose Verified 03/21/25 14:48 venlafaxine (From Effexor) Allergy Mild Constipatio Verified 03/21/25 14:48 n Penicillins Allergy Unknown Unknown Verified 03/21/25 14:48 Assessment & Plan Assessment & Plan (1) Catatonia: Status: Acute Code(s): F06.1 - Catatonic disorder due to known physiological condition Plan HPI: patient is a 69 yo female with hx history of UTI, depression, bipolar 1 depression, osteoarthritis, status post cardiac catheterization, anxiety, GERD, insomnia, osteopenia, 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 Patient has been at [facility] for approximately 3 weeks. Patient originally seen in [facility] after patient called 911. Prior to that patient had a puppy but could no longer care for the puppy and the puppy was taken away. Patient appeared to have a breakdown and was calling sister incessantly regarding the puppy and apparently called 911 out of distress. Patient was transferred to [facility] on a section 12 from [facility] for MDD, intrusive thoughts and auditory hallucinations. She was on Med floor from 03/20/25 to 04/14/25: Patient was admitted for bipolar disorder with catatonia moderate protein calorie malnutrition. Was treated with IV Valium, multiple ECTs, was supported with parenteral nutrition. Slowly patient had improvement, became more verbal, more participatory and diet significantly increased and was able to be weaned off parenteral nutrition. Was seen by Psychiatry who adjusted medications. Patient is still having significant acute psychiatric issues so will be discharged to inpatient psych. During hospitalization patient did have episode of acute hypoxic respiratory failure possibly due to pneumonia and completed 1 week of ertapenem. Formulation/clinical reasoning: Continue presenting with manic/psychotic/catatonia features. Just recently taking PO medication the past 2-3 days plus starting eating, advance to regular diet prior to transferred to S[facility]. Hospital course: 04/14/25: Continue with ECT -- as scheduled Ativan 0.5mg TID PO for anxiety/catatonia. Ativan 0.5mg BID PRN For severe anxiety Increase Zypexa 2.5 BID to 5mg BID to target psychotic/bipolar symptoms. BID PRN for severe agitation 04/16: Continue current treatment regimen. Encouraged to use her walker for ambulation at all times. Verbalized understanding and agrees with the plan. 04/18/25: Patient slept for 7 hours, compliant with medications, remain on 1-1 for for risk. Reports passive SI, reports heartburn. Given Tums, and other PRNs for anxiety, racing thoughts, severe anxiety. Usually lies a lot of PRNs. She is negative, not future focus I do not want to be here. Nobody helping me . U/A on 04/17/25 seemed fine. No UTI. Given extra Ativan 1mg and Zyprexa 5mg x1 today for severe anxiety and racing thoughts. Plan: Continues on ECT treatments Recently treated for acute hypoxic respiratory failure due to pneumonia, she completed 1 week of meropenem, also treated for UTI. Falls Patient has had two falls 04/16 and 04/[address] negative, no evidence of injury. Moves all extremities. CBC and BMP negative for any acute abnormalities UA to rule out medical etiology due to multiple falls. Urine pending GERD Continues on omeprazole Patient educated on: diagnosis, medication risk/benefits and therapeutic strategies Informed Consent: further education needed Reason for continued inpatient stay Substantial Risk for: med/psych decompensation Time Spent With Patient Time: Total time managing care of this patient today ____ minutes.
[2025-04-19 09:17] VITALS: BP 124/73; PULSE 88; RESP 18; TEMP 37.5; O2SAT 99
[2025-04-19] MEDS: Clotrimazole 1 % Cream 15 GM TUBE 1 APPL TOPICAL (10:27)
--- NOTE | 2025-04-19 11:58 | HO.PSYCHPN ---
Subjective Subjective Date of Service: 04/19/25 Reason For Visit: decomp Subjective Notes: Conditional Voluntary (by HCP) Healthcare Proxy: Yes Guardianship: No Medical Problems Affecting Mental Status: No Interim History: Medical record and nursing notes reviewed; case discussed during rounds with team/nursing staff, and met with patient for supportive therapy/psychoeducation, as well as medication management. Patient slept better, remain on 1-1. No falls. Patient is negative, feeling like she is dying and not getting better. Passive SI I do not want to live anymore. I do not want to be here. I think I am going to hell . Patient does not want to having ECT tomorrow is not helping me. Make me worse . Reports depression anxiety. Patient encouraged to eat, need lots of direction and encouragement, and assurance. However, overall, patient is better than yesterday. Medication Compliance: Yes (except cream for skin conditionx1) Side effects from medications: No Attending Groups: No Review of Systems Acute medical concerns: No Medical Review of Systems: unchanged Review of Systems Review of Systems Denies any shortness of breath, chest pain, headaches, dysuria, abdominal pain or discomfort, nausea, vomiting or diarrhea. Report heart burn. Mental Status Exam Mental Status Exam Narrative: Appearance: Casually dressed, adequate hygiene, unkempt hair Behavior: anxious but cooperative throughout the interview. Tense to fair eye contact, and there are no signs of psychomotor agitation or retardation Speech: Normal rate with pressure Thought process: disorganized, negative. Thought content: Not Future oriented but no self-harming thoughts Mood: anxious and depressed Affect: Flat SI:passive SI HI:denies VH/AH:none Delusions: None Insight/judgment: Impaired insight and judgment Memory/cog: Alert and oriented Patient Appearance: Unkempt Diagnostics Vital Signs (24Hr): Vital Signs - 24 hr 04/18/25 19:46 04/19/25 09:17 Temperature 98.1 F 99.5 F Pulse Rate 84 88 Respiratory Rate 18 Blood Pressure 97/52 L 124/73 Pulse Oximetry 95 99 Oxygen Delivery Method Room Air Room Air BMI result Body Mass Index 21.4 Labs 04/17/25 13:06 04/17/25 13:06 Labs: Laboratory Results - last 48 hr 04/17/25 04/17/25 13:06 15:10 WBC 7.1 RBC 3.81 L Hgb 11.5 L Hct 35.7 L MCV 93.7 MCH 30.2 MCHC 32.2 RDW 15.1 Plt Count 476 H D MPV 8.4 L Immature Gran % (Auto) 1.0 H Neut % (Auto) 57.0 Lymph % (Auto) 31.7 [place] % (Auto) 8.6 Eos % (Auto) 1.0 Baso % (Auto) 0.7 Lymph # (Auto) 2.2 [place] # (Auto) 0.6 Eos # (Auto) 0.1 Baso # (Auto) 0.1 Abs Immat Gran (auto) 0.07 H Absolute Neuts (auto) 4.0 Absolute Nucleated RBC 0.000 Nucleated RBC % (auto) 0.0 Sodium 143 Potassium 4.2 Chloride 111 H Carbon Dioxide 25 Anion Gap 11 L BUN 13 Creatinine 0.61 Estim Creat Clear Calc 87.0 Estimated GFR > 60 Random Glucose 78 Calcium 9.2 Urine Color Yellow Urine Appearance Clear Urine pH 6.0 Ur Specific [place] 1.025 Urine Protein Negative Urine Glucose (UA) Negative Urine Ketones Negative Urine Blood Negative Urine Nitrite Negative Ur Leukocyte Esterase Trace H Urine RBC 0-2 Urine WBC 0-5 Ur Squamous Epith Cells 3-5 Calcium Oxalate Crystal Present Other Crystals Present Urine Bacteria None Seen Hyaline Casts 0-2 Imaging Radiology Impressions: ITS Impressions Head CT 04/17/25 09:49 IMPRESSION: Stable exam. No acute intracranial findings. Electronically signed by: Massiel Tucker MD 04/17/2025 10:22 AM EDT Medications Medications Current Medications Acetaminophen (Acetaminophen 325 Mg Tablet) 650 mg PO Q6H PRN PRN Reason: Headache/Pain, Scale 1-10 Last Admin: 04/18/25 17:10 Dose: 650 mg Al Hydroxide/Mg Hydroxide (Magnesium Hydrox/Alum Hydrox 30 Ml Oral.Susp) 30 ml PO Q6H PRN PRN Reason: Heartburn/Nausea Last Admin: 04/18/25 09:18 Dose: 30 ml Calcium Carbonate (Calcium Carbonate 750 Mg Tab.Chew) 750 mg PO Q6H PRN PRN Reason: Heartburn Last Admin: 04/19/25 10:50 Dose: 750 mg Clotrimazole (Clotrimazole 1 % Cream 15 Gm Tube) 1 appl TOPICAL BID GRECIA; Protocol Last Admin: 04/19/25 10:27 Dose: 1 appl Docusate Sodium (Docusate Sodium 100 Mg Capsule) 100 mg PO BID PRN PRN Reason: Constipation Last Admin: 04/18/25 15:29 Dose: 100 mg Hydroxyzine HCl (Hydroxyzine Hcl 25 Mg Tablet) 25 mg PO Q6H PRN PRN Reason: mild anxiety Last Admin: 04/19/25 10:50 Dose: 25 mg Loperamide HCl (Loperamide Hcl 2 Mg Capsule) 2 mg PO Q6H PRN PRN Reason: Diarrhea Lorazepam (Lorazepam 0.5 Mg Tablet) 0.5 mg PO TID [facility] Last Admin: 04/19/25 09:18 Dose: 0.5 mg Lorazepam (Lorazepam 1 Mg Tablet) 1 mg PO Q6H PRN PRN Reason: severe anxiety Magnesium Hydroxide (Milk Of Magnesia 30 Ml Oral.Susp) 30 ml PO DAILY PRN PRN Reason: Constipation Last Admin: 04/18/25 17:10 Dose: 30 ml Melatonin (Melatonin 3 Mg Tablet) 6 mg PO BEDTIME [facility] Last Admin: 04/18/25 21:42 Dose: 6 mg Naloxone HCl (Naloxone Hcl 0.4 Mg/Ml Vial) 0.04 mg IVPUSH Q5M PRN PRN Reason: Excessive sedation or RR < 8 Naloxone HCl (Naloxone Hcl 0.4 Mg/Ml Vial) 0.04 mg IVPUSH Q5M PRN PRN Reason: Excessive sedation or RR < 8 Nicotine (Nicotine 21 Mg Patch.Td24) 21 mg TRANSDERMA DAILY PRN PRN Reason: nicotine craving Nicotine Polacrilex (Nicotine Polacrilex 2 Mg Gum) 2 mg BUCCAL Q2H PRN PRN Reason: Nicotine Cravings Olanzapine (Olanzapine 5 Mg Tablet) 5 mg PO BID PRN PRN Reason: agitation Last Admin: 04/18/25 15:10 Dose: 5 mg Olanzapine (Olanzapine 5 Mg Tablet) 5 mg PO BID [facility] Last Admin: 04/19/25 09:18 Dose: 5 mg Omeprazole (Omeprazole 20 Mg Capsule.Dr) 20 mg PO DAILY@0630 [facility] Last Admin: 04/19/25 06:20 Dose: 20 mg Ondansetron HCl (Ondansetron Odt 4 Mg Tab.Rapdis) 4 mg TRANSLINGU Q6H PRN PRN Reason: Nausea and Vomiting Last Admin: 04/18/25 17:10 Dose: 4 mg Thiamine HCl (Thiamine Hcl 100 Mg Tablet) 100 mg PO BID [facility] Last Admin: 04/19/25 09:18 Dose: 100 mg Trazodone HCl (Trazodone Hcl 50 Mg Tablet) 50 mg PO BEDTIME MRX1 PRN PRN Reason: Insomnia Allergies Allergies Allergy/AdvReac Type Severity Reaction Status Date / Time bee pollen Allergy Severe Anaphylaxis Verified 03/21/25 14:48 levofloxacin (From Levaquin) Allergy Severe Itching Verified 03/21/25 14:48 enoxaparin (From Lovenox) Allergy Intermediate Rash Verified 03/21/25 14:48 Seasonal Allergies Allergy Mild Runny Nose Verified 03/21/25 14:48 venlafaxine (From Effexor) Allergy Mild Constipatio Verified 03/21/25 14:48 n Penicillins Allergy Unknown Unknown Verified 03/21/25 14:48 Assessment & Plan Assessment & Plan (1) Catatonia: Status: Acute Code(s): F06.1 - Catatonic disorder due to known physiological condition Plan HPI: patient is a 69 yo female with hx history of UTI, depression, bipolar 1 depression, osteoarthritis, status post cardiac catheterization, anxiety, GERD, insomnia, osteopenia, 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 Patient has been at [facility] for approximately 3 weeks. Patient originally seen in [facility] after patient called 911. Prior to that patient had a puppy but could no longer care for the puppy and the puppy was taken away. Patient appeared to have a breakdown and was calling sister incessantly regarding the puppy and apparently called 911 out of distress. Patient was transferred to [facility] on a section 12 from [facility] for MDD, intrusive thoughts and auditory hallucinations. She was on Med floor from 03/20/25 to 04/14/25: Patient was admitted for bipolar disorder with catatonia moderate protein calorie malnutrition. Was treated with IV Valium, multiple ECTs, was supported with parenteral nutrition. Slowly patient had improvement, became more verbal, more participatory and diet significantly increased and was able to be weaned off parenteral nutrition. Was seen by Psychiatry who adjusted medications. Patient is still having significant acute psychiatric issues so will be discharged to inpatient psych. During hospitalization patient did have episode of acute hypoxic respiratory failure possibly due to pneumonia and completed 1 week of ertapenem. Formulation/clinical reasoning: Continue presenting with manic/psychotic/catatonia features. Just recently taking PO medication the past 2-3 days plus starting eating, advance to regular diet prior to transferred to . Hospital course: 04/14/25: Continue with ECT - as scheduled Ativan 0.5mg TID PO for anxiety/catatonia. Ativan 0.5mg BID PRN For severe anxiety Increase Zypexa 2.5 BID to 5mg BID to target psychotic/bipolar symptoms. BID PRN for severe agitation 04/16: Continue current treatment regimen. Encouraged to use her walker for ambulation at all times. Verbalized understanding and agrees with the plan. 04/18/25: Patient slept for 7 hours, compliant with medications, remain on 1-1 for for risk. Reports passive SI, reports heartburn. Given Tums, and other PRNs for anxiety, racing thoughts, severe anxiety. Usually lies a lot of PRNs. She is negative, not future focus I do not want to be here. Nobody helping me . U/A on 04/17/25 seemed fine. No UTI. Given extra Ativan 1mg and Zyprexa 5mg x1 today for severe anxiety and racing thoughts. 04/19/25: Patient slept better, remain on 1-1. No falls. Patient is negative, feeling like she is dying and not getting better. Passive SI I do not want to live anymore. I do not want to be here. I think I am going to hell . Patient does not want to having ECT tomorrow is not helping me. Make me worse . Reports depression anxiety. Patient encouraged to eat, need lots of direction and encouragement, and assurance. However, overall, patient is better than yesterday. Plan: Continues on ECT treatments Recently treated for acute hypoxic respiratory failure due to pneumonia, she completed 1 week of meropenem, also treated for UTI. Falls Patient has had two falls 04/16 and 04/[address] negative, no evidence of injury. Moves all extremities. CBC and BMP negative for any acute abnormalities UA to rule out medical etiology due to multiple falls. Urine pending GERD Continues on omeprazole Patient educated on: medication risk/benefits and therapeutic strategies Informed Consent: understands and further education needed Reason for continued inpatient stay Substantial Risk for: med/psych decompensation Time Spent With Patient Time: Total time managing care of this patient today ____ minutes.
[2025-04-19 19:49] VITALS: BP 131/66; PULSE 98; RESP 16; TEMP 36.6; O2SAT 98
[2025-04-19] MEDS: Milk of Magnesia 30 ML ORAL.SUSP PO (21:03)
[2025-04-20] VITALS (9 sets, daily range): BP systolic 97–178; BP diastolic 53–111; PULSE 84–103; RESP 16–20; TEMP 36.4–37.3; O2SAT 95–99
--- NOTE | 2025-04-20 | ECG_ITS ---
Test Reason : epigstric pain; r/o cardiac Blood Pressure : */* mmHG Vent. Rate : 84 BPM Atrial Rate : 84 BPM P-R Int : 132 ms QRS Dur : 72 ms QT Int : 382 ms P-R-T Axes : 20 39 35 degrees QTcB Int : 451 ms Normal sinus rhythm Normal ECG When compared with ECG of 30-Mar-2025 12:08, Criteria for Inferior infarct are no longer Present Nonspecific T wave abnormality has replaced inverted T waves in Inferior leads Referred By: Isaac Garza Electronically Signed By: CHARU SCHULER MD
--- NOTE | 2025-04-20 06:55 | HO.ANESPROP2 ---
[facility] Active Problems Active Problems: All Active Problems Bipolar II, mixed, severe with psychotic behavior (Acute) Encounter for preoperative pulmonary examination (Acute) Agitated (Acute) Catatonia (Acute) Delirium due to another medical condition (Acute) Delirium (Acute) UTI (urinary tract infection) (Acute) Dehydration (Acute) Arthritis of right knee (Acute) Bipolar 1 disorder, depressed, severe (Acute) Elevated troponin (Acute) Chest discomfort (Acute) S/P cardiac catheterization (Acute) Bipolar 1 disorder (Acute) Varus deformity of knee (Acute) Osteoarthritis of left knee (Acute) Anxiety (Acute) GERD (gastroesophageal reflux disease) (Acute) Insomnia (Acute) Osteopenia (Acute) Murmur, cardiac (Acute) Status post total knee replacement, left (Acute) Acute deep vein thrombosis (DVT) of left tibial vein (Chronic) Past Medical History Medical History Delirium due to another medical condition History of skin cancer Hx of bladder problems VITO (generalized anxiety disorder) Murmur, cardiac Hx of thyroid nodule Osteopenia Hx of skin cancer, basal cell Seasonal allergies Insomnia Constipation GERD (gastroesophageal reflux disease) Anxiety History of electroconvulsive therapy Bipolar 1 disorder Functional capacity: independent ambulation Family History Family History Mother Basal cell carcinoma (BCC) in situ of skin Osteoporosis Hyperlipidemia Father CAD (coronary artery disease) Alcoholism Sister Osteoporosis Depression Brother Cancer of tongue Cancer of skin Family history of problems with anesthesia: No Surgical History Surgical History Hx of colonoscopy H/O elbow surgery History of back surgery History of Problems with Anesthesia: Yes Social History Social History Household Members: None Household Members Other:: brought in from [facility] Housing: Apartment Are you a primary life care planner to a significant other at home: No Do you presently have visiting nurse or other home services: Yes Comment: 1:1 Patient Tobacco Use Status: Never used Tobacco Tobacco use type: Cigarette Years Smoked: 30+, now vapes e-Cigarette/Vaping Use: Currently Using Second Hand Smoke Exposure: No Substance Use Type: Crack/Cocaine Currently Displaying Signs/Symptoms of Drug Intoxication Withdrawal: No Have you been hit, kicked, punched, or otherwise hurt by someone within the past year? If so, by whom?: No Do you feel safe in your current relationship?: No Are you made to feel afraid or neglected: No Spiritual Healthcare Practices: No Latter-Day Healthcare Practices: No Cultural Healthcare Practices: No Advance Directives: Yes Advance Directives on File: Yes Advance Directives Date on File: 06/12/24 Do you have thoughts of harming others: None Do you have a plan to hurt others: No Plan Recently lost weight without trying: Yes How much weight loss: Unsure Eating poorly because of decreased appetite: No Nutrition screen score: 4 Nutrition Risks: No Nutritional Risk Patient : No : No Poor oral hygiene: No service: No Current occupational status: unemployed and retired 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 Sexual orientation: Straight/Heterosexual Meds Allergies Allergy/AdvReac Type Severity Reaction Status Date / Time bee pollen Allergy Severe Anaphylaxis Verified 03/21/25 14:48 levofloxacin (From Levaquin) Allergy Severe Itching Verified 03/21/25 14:48 enoxaparin (From Lovenox) Allergy Intermediate Rash Verified 03/21/25 14:48 Seasonal Allergies Allergy Mild Runny Nose Verified 03/21/25 14:48 venlafaxine (From Effexor) Allergy Mild Constipatio Verified 03/21/25 14:48 n Penicillins Allergy Unknown Unknown Verified 03/21/25 14:48 Active Medications: Current Medications Acetaminophen (Acetaminophen 325 Mg Tablet) 650 mg PO Q6H PRN PRN Reason: Headache/Pain, Scale 1-10 Last Admin: 04/18/25 17:10 Dose: 650 mg Al Hydroxide/Mg Hydroxide (Magnesium Hydrox/Alum Hydrox 30 Ml Oral.Susp) 30 ml PO Q6H PRN PRN Reason: Heartburn/Nausea Last Admin: 04/18/25 09:18 Dose: 30 ml Calcium Carbonate (Calcium Carbonate 750 Mg Tab.Chew) 750 mg PO Q6H PRN PRN Reason: Heartburn Last Admin: 04/19/25 10:50 Dose: 750 mg Clotrimazole (Clotrimazole 1 % Cream 15 Gm Tube) 1 appl TOPICAL BID GRECIA; Protocol Last Admin: 04/19/25 20:58 Dose: Not Given Docusate Sodium (Docusate Sodium 100 Mg Capsule) 100 mg PO BID PRN PRN Reason: Constipation Last Admin: 04/18/25 15:29 Dose: 100 mg Hydroxyzine HCl (Hydroxyzine Hcl 25 Mg Tablet) 25 mg PO Q6H PRN PRN Reason: mild anxiety Last Admin: 04/19/25 20:58 Dose: 25 mg Lactated Ringer's (Lr) 1,000 mls @ 50 mls/hr IVCONT .Q20H GRECIA Lactated Ringer's (Lr) 1,000 mls @ 50 mls/hr IVCONT .Q20H GRECIA Loperamide HCl (Loperamide Hcl 2 Mg Capsule) 2 mg PO Q6H PRN PRN Reason: Diarrhea Lorazepam (Lorazepam 0.5 Mg Tablet) 0.5 mg PO TID [facility] Last Admin: 04/19/25 21:01 Dose: 0.5 mg Lorazepam (Lorazepam 1 Mg Tablet) 1 mg PO Q6H PRN PRN Reason: severe anxiety Magnesium Hydroxide (Milk Of Magnesia 30 Ml Oral.Susp) 30 ml PO DAILY PRN PRN Reason: Constipation Last Admin: 04/19/25 21:03 Dose: 30 ml Melatonin (Melatonin 3 Mg Tablet) 6 mg PO BEDTIME [facility] Last Admin: 04/19/25 20:58 Dose: 6 mg Naloxone HCl (Naloxone Hcl 0.4 Mg/Ml Vial) 0.04 mg IVPUSH Q5M PRN PRN Reason: Excessive sedation or RR < 8 Naloxone HCl (Naloxone Hcl 0.4 Mg/Ml Vial) 0.04 mg IVPUSH Q5M PRN PRN Reason: Excessive sedation or RR < 8 Naloxone HCl (Naloxone Hcl 0.4 Mg/Ml Vial) 0.04 mg IVPUSH Q5M PRN PRN Reason: Excessive sedation or RR < 8 Naloxone HCl (Naloxone Hcl 0.4 Mg/Ml Vial) 0.04 mg IVPUSH Q5M PRN PRN Reason: Excessive sedation or RR < 8 Nicotine (Nicotine 21 Mg Patch.Td24) 21 mg TRANSDERMA DAILY PRN PRN Reason: nicotine craving Nicotine Polacrilex (Nicotine Polacrilex 2 Mg Gum) 2 mg BUCCAL Q2H PRN PRN Reason: Nicotine Cravings Olanzapine (Olanzapine 5 Mg Tablet) 5 mg PO BID PRN PRN Reason: agitation Last Admin: 04/18/25 15:10 Dose: 5 mg Olanzapine (Olanzapine 5 Mg Tablet) 5 mg PO BID [facility] Last Admin: 04/19/25 20:59 Dose: 5 mg Omeprazole (Omeprazole 20 Mg Capsule.Dr) 20 mg PO DAILY@06 [facility] Last Admin: 04/20/25 05:41 Dose: Not Given Ondansetron HCl (Ondansetron Odt 4 Mg Tab.Rapdis) 4 mg TRANSLINGU Q6H PRN PRN Reason: Nausea and Vomiting Last Admin: 04/18/25 17:10 Dose: 4 mg Thiamine HCl (Thiamine Hcl 100 Mg Tablet) 100 mg PO BID [facility] Last Admin: 04/19/25 20:58 Dose: 100 mg Trazodone HCl (Trazodone Hcl 50 Mg Tablet) 50 mg PO BEDTIME MRX1 PRN PRN Reason: Insomnia Last Admin: 04/20/25 01:33 Dose: 50 mg Home Medications ?Medication ?Instructions ?Recorded ?Confirmed ?Last Taken ?Type docusate sodium 100 mg capsule 1 cap PO BID PRN Constipation 03/22/25 04/14/25 Unknown History loperamide 2 mg tablet 2 mg PO Q6H PRN Diarrhea 03/22/25 04/14/25 Unknown History lorazepam 0.5 mg tablet 0.5 mg PO TID 03/22/25 04/14/25 Unknown History melatonin 3 mg tablet 3 mg PO BEDTIME PRN Sleep 03/22/25 04/14/25 Unknown History ondansetron HCl 4 mg tablet 4 mg PO Q6H PRN Nausea And Vomiting 03/22/25 04/14/25 Unknown History pantoprazole 40 mg tablet,delayed 40 mg PO DAILY@0630 03/22/25 04/14/25 Unknown History release Exam Height,Weight and Vital Signs: Height 5 ft 7 in Weight 61.859 kg Last Vital Signs Temp 98 F 04/19/25 19:49 Pulse 98 04/19/25 19:49 Resp 16 04/19/25 19:49 BP 131/66 04/19/25 19:49 Pulse Ox 98 04/19/25 19:49 O2 Del Method Room Air 04/19/25 19:49 Pertinent Lab Results Pertinent Lab Results: Laboratory Tests 04/16/25 04/17/25 04/17/25 12:17 07:09 13:06 WBC 7.1 RBC 3.81 L Hgb 11.5 L Hct 35.7 L MCV 93.7 MCH 30.2 MCHC 32.2 RDW 15.1 Plt Count 476 H D MPV 8.4 L Immature Gran % (Auto) 1.0 H Neut % (Auto) 57.0 Lymph % (Auto) 31.7 [place] % (Auto) 8.6 Eos % (Auto) 1.0 Baso % (Auto) 0.7 Lymph # (Auto) 2.2 [place] # (Auto) 0.6 Eos # (Auto) 0.1 Baso # (Auto) 0.1 Abs Immat Gran (auto) 0.07 H Absolute Neuts (auto) 4.0 Absolute Nucleated RBC 0.000 Nucleated RBC % (auto) 0.0 Sodium Cancelled 143 Potassium Cancelled 4.2 Chloride Cancelled 111 H Carbon Dioxide Cancelled 25 Anion Gap Cancelled 11 L BUN Cancelled 13 Creatinine Cancelled 0.61 Estim Creat Clear Calc Cancelled 87.0 Estimated GFR Cancelled > 60 POC Glucose 99 Random Glucose Cancelled 78 Estimat Average Glucose Cancelled Hemoglobin A1c % Cancelled Calcium Cancelled 9.2 Total Bilirubin Cancelled AST Cancelled ALT Cancelled Alkaline Phosphatase Cancelled Total Protein Cancelled Albumin Cancelled Triglycerides Cancelled Cholesterol Cancelled LDL Cholesterol, Calc Cancelled HDL Cholesterol Cancelled Vitamin B12 741 Folate 9.6 TSH Cancelled Free T4 Cancelled Urine Color Urine Appearance Urine pH Ur Specific [place] Urine Protein Urine Glucose (UA) Urine Ketones Urine Blood Urine Nitrite Ur Leukocyte Esterase Urine RBC Urine WBC Ur Squamous Epith Cells Calcium Oxalate Crystal Other Crystals Urine Bacteria Hyaline Casts 04/17/25 15:10 WBC RBC Hgb Hct MCV MCH MCHC RDW Plt Count MPV Immature Gran % (Auto) Neut % (Auto) Lymph % (Auto) [place] % (Auto) Eos % (Auto) Baso % (Auto) Lymph # (Auto) [place] # (Auto) Eos # (Auto) Baso # (Auto) Abs Immat Gran (auto) Absolute Neuts (auto) Absolute Nucleated RBC Nucleated RBC % (auto) Sodium Potassium Chloride Carbon Dioxide Anion Gap BUN Creatinine Estim Creat Clear Calc Estimated GFR POC Glucose Random Glucose Estimat Average Glucose Hemoglobin A1c % Calcium Total Bilirubin AST ALT Alkaline Phosphatase Total Protein Albumin Triglycerides Cholesterol LDL Cholesterol, Calc HDL Cholesterol Vitamin B12 Folate TSH Free T4 Urine Color Yellow Urine Appearance Clear Urine pH 6.0 Ur Specific [place] 1.025 Urine Protein Negative Urine Glucose (UA) Negative Urine Ketones Negative Urine Blood Negative Urine Nitrite Negative Ur Leukocyte Esterase Trace H Urine RBC 0-2 Urine WBC 0-5 Ur Squamous Epith Cells 3-5 Calcium Oxalate Crystal Present Other Crystals Present Urine Bacteria None Seen Hyaline Casts 0-2 Airway Mallampati Class: II TM Dist: >3cm Neck ROM: Full Denture: Upper Heart: rrr Lungs: cta Assessment and Plan Assessment Anesthesia Assessment: Anesthesia Plan Discussed and Chart Reviewed Final Anesthetic Review Family History of Problems with Anesthesia: No History of Problems with Anesthesia: Yes NPO: Yes ASA Class: III Final Preanesthetic Review: No Changes in Pt Med Stat, Meds/Allgs Chart Reviewed and Consent Obtained/Reviewed Patient Risk: Intermediate Procedure Risk: Intermediate Anesthetic Plan Anesthetic Plan: GA Disposition: Standard PACU
--- NOTE | 2025-04-20 07:08 | MHC.SHP ---
Pre-Procedural Eval Section A - 24 Hr Update-Section A only Date of Service: 04/20/25 The patient is an INPATIENT: Yes Changes since office visit: No Cold of Flu in the past 2 weeks, No New Medical Problems, No Changes in Medication and No Patient answered all questions Section B - Complete if H&P > 30 days Chief Complaint: decomp Details of Present Illness: incrementally better; agrees with ECT Allergies: Allergies Allergy/AdvReac Type Severity Reaction Status Date / Time bee pollen Allergy Severe Anaphylaxis Verified 03/21/25 14:48 levofloxacin (From Levaquin) Allergy Severe Itching Verified 03/21/25 14:48 enoxaparin (From Lovenox) Allergy Intermediate Rash Verified 03/21/25 14:48 Seasonal Allergies Allergy Mild Runny Nose Verified 03/21/25 14:48 venlafaxine (From Effexor) Allergy Mild Constipatio Verified 03/21/25 14:48 n Penicillins Allergy Unknown Unknown Verified 03/21/25 14:48 Review of Systems Sugical H&P ROS: Negative: Constitution and Yes, Specify: Gastrointestinal (epigastric pain/discomfort since yesterday) Exam Surgical H&P Exam: Normal: Heart (RRR) and Normal: Lungs (CTA b/l throughout) Plan Diagnosis/Plan: Unchanged I have reviewed the history and physical and performed a pertinent physical examination on my patient. No changes have occurred unless specified. Time Spent With Patient Time: Total time managing care of this patient today ____ minutes.
[2025-04-20] MEDS: Lactated Ringers 1,000 ML 50 ML IVCONT (07:11)
--- NOTE | 2025-04-20 07:14 | HO.ECTPROC ---
ECT Procedure Note Diagnosis/Treatment Date of Service: 04/20/25 Diagnosis: Bipolar disorder and Catatonia Current Treatment Number: 5 Treatment: Series Interval Clinical Notes: little better, little more organized and cooperative Time: Total time managing care of this patient today ____ minutes. ECT Settings Device: THYMATRON DGx Electrode Placement: Bifrontal Program/Pulse Width: 0.50 Energy Percent: 100 Seizure Duration By EEG (in seconds): 30 By Motor Observation (in seconds): 20 Medications Administration General Anesthetic: Etomidate (16) Muscle Relaxant: Succinylcholine (100) Ancillary Medications Miscillaneous Medications: Midazolam (2 (post)) and Flumazenil (0.5) Airway Management Airway Management: Bag Mask Ventilation Treatment Recommendations No Changes Recommended: No change Electrode Placement: Bifrontal Program/Pulse Width: 0.50 Energy Percent: 100 Notes: continues to improve, more organized and cooperative continue w/ same parameters Pt Tolerated Procedure w/o Issue: Yes
[2025-04-20] MEDS: Clotrimazole 1 % Cream 15 GM TUBE 1 APPL TOPICAL ×2 (09:09→20:13)
[2025-04-20] MEDS: Magnesium Hydrox/Alum Hydrox 30 ML ORAL.SUSP PO (12:23)
--- NOTE | 2025-04-20 13:07 | HO.PSYCHPN ---
Subjective Subjective Date of Service: 04/20/25 Reason For Visit: decomp Interim History: Met with patient; discussed with team Patient remains with some improvement. During ECT this morning she consented to getting it and asked if she was doing better. Not yelling and overall more organized. Patient complained of epigastric pain which got better with Maalox and fully resolved with Pepcid 20mg. -ordered EKG/trops out of abundance of caution; unremarkable Mental Status Exam Mental Status Exam Narrative: Appearance: Casually dressed, adequate hygiene, unkempt hair Behavior: more organized, but still perseverative, anxious; Adequate eye contact intermittent mild to moderate psychomotor agitation Speech: mostly Normal volume and prosody Thought process: More organized and more goal-directed Thought content: About seeing her sister; treatment Mood: ok Affect:anxious SI: None HI: None VH/AH:none Delusions: None expressed Insight/judgment: Impaired insight and judgment Memory/cog: Alert and oriented Diagnostics Vital Signs (24Hr): Vital Signs - 24 hr 04/19/25 19:49 04/20/25 06:45 04/20/25 07:32 Temperature 98 F 98.3 F 99.2 F Pulse Rate 98 84 103 H Respiratory Rate 16 20 16 Blood Pressure 131/66 110/53 L 178/111 H Pulse Oximetry 98 96 99 Oxygen Delivery Method Room Air Room Air Nasal Cannula Nasal Cannula with ETCO2 Oxygen Flow Rate 2 04/20/25 07:37 04/20/25 07:42 04/20/25 07:47 Temperature Pulse Rate 101 H 102 H 100 Respiratory Rate 16 16 16 Blood Pressure 172/77 H 171/99 H 165/90 H Pulse Oximetry 99 99 99 Oxygen Delivery Method Room Air Room Air Room Air Oxygen Flow Rate 04/20/25 08:02 04/20/25 08:12 Temperature 98.2 F 97.6 F Pulse Rate 97 103 H Respiratory Rate 18 18 Blood Pressure 141/90 H 143/79 H Pulse Oximetry 99 97 Oxygen Delivery Method Room Air Room Air Oxygen Flow Rate 2 BMI result Body Mass Index 21.4 Labs 04/17/25 13:06 04/17/25 13:06 Imaging Radiology Impressions: ITS Impressions Head CT 04/17/25 09:49 IMPRESSION: Stable exam. No acute intracranial findings. Electronically signed by: Massiel Tucker MD 04/17/2025 10:22 AM EDT Medications Medications Current Medications Acetaminophen (Acetaminophen 325 Mg Tablet) 650 mg PO Q6H PRN PRN Reason: Headache/Pain, Scale 1-10 Last Admin: 04/18/25 17:10 Dose: 650 mg Al Hydroxide/Mg Hydroxide (Magnesium Hydrox/Alum Hydrox 30 Ml Oral.Susp) 30 ml PO Q6H PRN PRN Reason: Heartburn/Nausea Last Admin: 04/20/25 12:23 Dose: 30 ml Calcium Carbonate (Calcium Carbonate 750 Mg Tab.Chew) 750 mg PO Q6H PRN PRN Reason: Heartburn Last Admin: 04/19/25 10:50 Dose: 750 mg Clotrimazole (Clotrimazole 1 % Cream 15 Gm Tube) 1 appl TOPICAL BID GRECIA; Protocol Last Admin: 04/20/25 09:09 Dose: 1 appl Docusate Sodium (Docusate Sodium 100 Mg Capsule) 100 mg PO BID PRN PRN Reason: Constipation Last Admin: 04/18/25 15:29 Dose: 100 mg Hydroxyzine HCl (Hydroxyzine Hcl 25 Mg Tablet) 25 mg PO Q6H PRN PRN Reason: mild anxiety Last Admin: 04/19/25 20:58 Dose: 25 mg Lactated Ringer's (Lr) 1,000 mls @ 50 mls/hr IVCONT .Q20H GRECIA Last Admin: 04/20/25 07:11 Dose: 50 mls/hr Lactated Ringer's (Lr) 1,000 mls @ 50 mls/hr IVCONT .Q20H GRECIA Loperamide HCl (Loperamide Hcl 2 Mg Capsule) 2 mg PO Q6H PRN PRN Reason: Diarrhea Lorazepam (Lorazepam 0.5 Mg Tablet) 0.5 mg PO TID [facility] Last Admin: 04/20/25 08:42 Dose: 0.5 mg Lorazepam (Lorazepam 1 Mg Tablet) 1 mg PO Q6H PRN PRN Reason: severe anxiety Magnesium Hydroxide (Milk Of Magnesia 30 Ml Oral.Susp) 30 ml PO DAILY PRN PRN Reason: Constipation Last Admin: 04/19/25 21:03 Dose: 30 ml Melatonin (Melatonin 3 Mg Tablet) 6 mg PO BEDTIME [facility] Last Admin: 04/19/25 20:58 Dose: 6 mg Naloxone HCl (Naloxone Hcl 0.4 Mg/Ml Vial) 0.04 mg IVPUSH Q5M PRN PRN Reason: Excessive sedation or RR < 8 Naloxone HCl (Naloxone Hcl 0.4 Mg/Ml Vial) 0.04 mg IVPUSH Q5M PRN PRN Reason: Excessive sedation or RR < 8 Naloxone HCl (Naloxone Hcl 0.4 Mg/Ml Vial) 0.04 mg IVPUSH Q5M PRN PRN Reason: Excessive sedation or RR < 8 Naloxone HCl (Naloxone Hcl 0.4 Mg/Ml Vial) 0.04 mg IVPUSH Q5M PRN PRN Reason: Excessive sedation or RR < 8 Nicotine (Nicotine 21 Mg Patch.Td24) 21 mg TRANSDERMA DAILY PRN PRN Reason: nicotine craving Nicotine Polacrilex (Nicotine Polacrilex 2 Mg Gum) 2 mg BUCCAL Q2H PRN PRN Reason: Nicotine Cravings Olanzapine (Olanzapine 5 Mg Tablet) 5 mg PO BID PRN PRN Reason: agitation Last Admin: 04/18/25 15:10 Dose: 5 mg Olanzapine (Olanzapine 5 Mg Tablet) 5 mg PO BID [facility] Last Admin: 04/20/25 08:42 Dose: 5 mg Omeprazole (Omeprazole 20 Mg Capsule.Dr) 20 mg PO DAILY@0630 [facility] Last Admin: 04/20/25 05:41 Dose: Not Given Ondansetron HCl (Ondansetron Odt 4 Mg Tab.Rapdis) 4 mg TRANSLINGU Q6H PRN PRN Reason: Nausea and Vomiting Last Admin: 04/18/25 17:10 Dose: 4 mg Thiamine HCl (Thiamine Hcl 100 Mg Tablet) 100 mg PO BID [facility] Last Admin: 04/20/25 08:43 Dose: 100 mg Trazodone HCl (Trazodone Hcl 50 Mg Tablet) 50 mg PO BEDTIME MRX1 PRN PRN Reason: Insomnia Last Admin: 04/20/25 01:33 Dose: 50 mg Allergies Allergies Allergy/AdvReac Type Severity Reaction Status Date / Time bee pollen Allergy Severe Anaphylaxis Verified 03/21/25 14:48 levofloxacin (From Levaquin) Allergy Severe Itching Verified 03/21/25 14:48 enoxaparin (From Lovenox) Allergy Intermediate Rash Verified 03/21/25 14:48 Seasonal Allergies Allergy Mild Runny Nose Verified 03/21/25 14:48 venlafaxine (From Effexor) Allergy Mild Constipatio Verified 03/21/25 14:48 n Penicillins Allergy Unknown Unknown Verified 03/21/25 14:48 Assessment & Plan Assessment & Plan (1) Catatonia: Status: Acute Code(s): F06.1 - Catatonic disorder due to known physiological condition Plan HPI: patient is a 69 yo female with hx history of UTI, depression, bipolar 1 depression, osteoarthritis, status post cardiac catheterization, anxiety, GERD, insomnia, osteopenia, 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 Patient has been at [facility] for approximately 3 weeks. Patient originally seen in [facility] after patient called 911. Prior to that patient had a puppy but could no longer care for the puppy and the puppy was taken away. Patient appeared to have a breakdown and was calling sister incessantly regarding the puppy and apparently called 911 out of distress. Patient was transferred to [facility] on a section 12 from [facility] for MDD, intrusive thoughts and auditory hallucinations. She was on Med floor from 03/20/25 to 04/14/25: Patient was admitted for bipolar disorder with catatonia moderate protein calorie malnutrition. Was treated with IV Valium, multiple ECTs, was supported with parenteral nutrition. Slowly patient had improvement, became more verbal, more participatory and diet significantly increased and was able to be weaned off parenteral nutrition. Was seen by Psychiatry who adjusted medications. Patient is still having significant acute psychiatric issues so will be discharged to inpatient psych. During hospitalization patient did have episode of acute hypoxic respiratory failure possibly due to pneumonia and completed 1 week of ertapenem. Formulation/clinical reasoning: Continue presenting with manic/psychotic/catatonia features. Just recently taking PO medication the past 2-3 days plus starting eating, advance to regular diet prior to transferred to . Hospital course: 04/14/25: Continue with ECT - as scheduled Ativan 0.5mg TID PO for anxiety/catatonia. Ativan 0.5mg BID PRN For severe anxiety Increase Zypexa 2.5 BID to 5mg BID to target psychotic/bipolar symptoms. BID PRN for severe agitation 04/16: Continue current treatment regimen. Encouraged to use her walker for ambulation at all times. Verbalized understanding and agrees with the plan. 04/17 missed ECT today since she ate breakfast; also had a witnessed fall but patient said she did not hit her head, neuro checks unremarkable. Patient showing some signs of improvement and more organized in speech today. Discussed ECT with her and she seemed to accept that she is better for said okay to continuing 04/18/25: Patient slept for 7 hours, compliant with medications, remain on 1-1 for for risk. Reports passive SI, reports heartburn. Given Tums, and other PRNs for anxiety, racing thoughts, severe anxiety. Usually lies a lot of PRNs. She is negative, not future focus I do not want to be here. Nobody helping me . U/A on 04/17/25 seemed fine. No UTI. Given extra Ativan 1mg and Zyprexa 5mg x1 today for severe anxiety and racing thoughts. 04/19/25: Patient slept better, remain on 1-1. No falls. Patient is negative, feeling like she is dying and not getting better. Passive SI I do not want to live anymore. I do not want to be here. I think I am going to hell . Patient does not want to having ECT tomorrow is not helping me. Make me worse . Reports depression anxiety. Patient encouraged to eat, need lots of direction and encouragement, and assurance. However, overall, patient is better than yesterday. 04/20 still disorganized, but steadily improving; continue tx plan Plan: Continues on ECT treatments Recently treated for acute hypoxic respiratory failure due to pneumonia, she completed 1 week of meropenem, also treated for UTI. Falls Patient has had two falls 04/16 and 04/[address] negative, no evidence of injury. Moves all extremities. CBC and BMP negative for any acute abnormalities UA to rule out medical etiology due to multiple falls. Urine pending GERD Continues on omeprazole Patient educated on: diagnosis, ECT and medical condition Informed Consent: understands, does not understand and further education needed Reason for continued inpatient stay Substantial Risk for: inability to function Time Spent With Patient Time: Total time managing care of this patient today ____ minutes.
--- NOTE | 2025-04-20 14:55 | PC.NURSE ---
Pt c/o 02/08 stomach pain that is achey and crampy and that has been happening off and on for days. Provider Jey Garza notified and ordered Famotidine, an EKG and Troponin labs. Famotidine given pending effect.
[2025-04-20 16:46] LABS: Troponin-I High Sensitivity 3.2 ng/L (<3.5-17.0)
[2025-04-21] MEDS: Clotrimazole 1 % Cream 15 GM TUBE 1 APPL TOPICAL ×2 (07:55→20:43)
[2025-04-21 08:00] VITALS: BP 114/78; PULSE 87; RESP 18; TEMP 36.9; O2SAT 97
[2025-04-21] MEDS: Milk of Magnesia 30 ML ORAL.SUSP PO (17:12)
[2025-04-21 20:00] VITALS: BP 101/60; PULSE 77; RESP 16; TEMP 37; O2SAT 96
--- NOTE | 2025-04-21 21:59 | HO.PSYCHPN ---
Subjective Subjective Date of Service: 04/21/25 Reason For Visit: catatonia Subjective Notes: Conditional Voluntary Interim History: Patient ambulating tolerating ECT less labile remains depressed irritable Medication Compliance: Yes Mental Status Exam Mental Status Exam Narrative: Appearance: Casually dressed, adequate hygiene, unkempt hair Behavior: more organized, but still perseverative, anxious; Adequate eye contact intermittent mild to moderate psychomotor agitation Speech: mostly Normal volume and prosody Thought process: More organized and more goal-directed Thought content: About seeing her sister; treatment Mood: ok Affect:anxious SI: None HI: None VH/AH:none Delusions: None expressed Insight/judgment: Impaired insight and judgment Memory/cog: Alert and oriented Diagnostics Vital Signs (24Hr): Vital Signs - 24 hr 04/21/25 08:00 04/21/25 20:00 Temperature 98.4 F 98.6 F Pulse Rate 87 77 Respiratory Rate 18 16 Blood Pressure 114/78 101/60 Pulse Oximetry 97 96 Oxygen Delivery Method Room Air Room Air BMI result Body Mass Index 21.4 Labs 04/17/25 13:06 04/17/25 13:06 Labs: Laboratory Results - last 48 hr 04/20/25 15:39 Troponin I High Sens 3.2 Imaging Radiology Impressions: ITS Impressions Head CT 04/17/25 09:49 IMPRESSION: Stable exam. No acute intracranial findings. Electronically signed by: Massiel Tucker MD 04/17/2025 10:22 AM EDT RP Medications Medications Current Medications Acetaminophen (Acetaminophen 325 Mg Tablet) 650 mg PO Q6H PRN PRN Reason: Headache/Pain, Scale 1-10 Last Admin: 04/18/25 17:10 Dose: 650 mg Al Hydroxide/Mg Hydroxide (Magnesium Hydrox/Alum Hydrox 30 Ml Oral.Susp) 30 ml PO Q6H PRN PRN Reason: Heartburn/Nausea Last Admin: 04/20/25 12:23 Dose: 30 ml Calcium Carbonate (Calcium Carbonate 750 Mg Tab.Chew) 750 mg PO Q6H PRN PRN Reason: Heartburn Last Admin: 04/19/25 10:50 Dose: 750 mg Clotrimazole (Clotrimazole 1 % Cream 15 Gm Tube) 1 appl TOPICAL BID GRECIA; Protocol Last Admin: 04/21/25 20:43 Dose: 1 appl Docusate Sodium (Docusate Sodium 100 Mg Capsule) 100 mg PO BID PRN PRN Reason: Constipation Last Admin: 04/18/25 15:29 Dose: 100 mg Hydroxyzine HCl (Hydroxyzine Hcl 25 Mg Tablet) 25 mg PO Q6H PRN PRN Reason: mild anxiety Last Admin: 04/19/25 20:58 Dose: 25 mg Loperamide HCl (Loperamide Hcl 2 Mg Capsule) 2 mg PO Q6H PRN PRN Reason: Diarrhea Lorazepam (Lorazepam 0.5 Mg Tablet) 0.5 mg PO TID [facility] Last Admin: 04/21/25 20:45 Dose: 0.5 mg Lorazepam (Lorazepam 1 Mg Tablet) 1 mg PO Q6H PRN PRN Reason: severe anxiety Last Admin: 04/20/25 16:11 Dose: 1 mg Magnesium Hydroxide (Milk Of Magnesia 30 Ml Oral.Susp) 30 ml PO DAILY PRN PRN Reason: Constipation Last Admin: 04/21/25 17:12 Dose: 30 ml Melatonin (Melatonin 3 Mg Tablet) 6 mg PO BEDTIME [facility] Last Admin: 04/21/25 20:44 Dose: 6 mg Naloxone HCl (Naloxone Hcl 0.4 Mg/Ml Vial) 0.04 mg IVPUSH Q5M PRN PRN Reason: Excessive sedation or RR < 8 Naloxone HCl (Naloxone Hcl 0.4 Mg/Ml Vial) 0.04 mg IVPUSH Q5M PRN PRN Reason: Excessive sedation or RR < 8 Naloxone HCl (Naloxone Hcl 0.4 Mg/Ml Vial) 0.04 mg IVPUSH Q5M PRN PRN Reason: Excessive sedation or RR < 8 Naloxone HCl (Naloxone Hcl 0.4 Mg/Ml Vial) 0.04 mg IVPUSH Q5M PRN PRN Reason: Excessive sedation or RR < 8 Nicotine (Nicotine 21 Mg Patch.Td24) 21 mg TRANSDERMA DAILY PRN PRN Reason: nicotine craving Nicotine Polacrilex (Nicotine Polacrilex 2 Mg Gum) 2 mg BUCCAL Q2H PRN PRN Reason: Nicotine Cravings Olanzapine (Olanzapine 5 Mg Tablet) 5 mg PO BID PRN PRN Reason: agitation Last Admin: 04/18/25 15:10 Dose: 5 mg Olanzapine (Olanzapine 5 Mg Tablet) 5 mg PO BID [facility] Last Admin: 04/21/25 20:44 Dose: 5 mg Omeprazole (Omeprazole 20 Mg Capsule.Dr) 20 mg PO DAILY@0630 [facility] Last Admin: 04/21/25 06:22 Dose: 20 mg Ondansetron HCl (Ondansetron Odt 4 Mg Tab.Rapdis) 4 mg TRANSLINGU Q6H PRN PRN Reason: Nausea and Vomiting Last Admin: 04/18/25 17:10 Dose: 4 mg Thiamine HCl (Thiamine Hcl 100 Mg Tablet) 100 mg PO BID [facility] Last Admin: 04/21/25 20:44 Dose: 100 mg Trazodone HCl (Trazodone Hcl 50 Mg Tablet) 50 mg PO BEDTIME MRX1 PRN PRN Reason: Insomnia Last Admin: 04/20/25 01:33 Dose: 50 mg Allergies Allergies Allergy/AdvReac Type Severity Reaction Status Date / Time bee pollen Allergy Severe Anaphylaxis Verified 03/21/25 14:48 levofloxacin (From Levaquin) Allergy Severe Itching Verified 03/21/25 14:48 enoxaparin (From Lovenox) Allergy Intermediate Rash Verified 03/21/25 14:48 Seasonal Allergies Allergy Mild Runny Nose Verified 03/21/25 14:48 venlafaxine (From Effexor) Allergy Mild Constipatio Verified 03/21/25 14:48 n Penicillins Allergy Unknown Unknown Verified 03/21/25 14:48 Assessment & Plan Assessment & Plan (1) Catatonia: Status: Acute Code(s): F06.1 - Catatonic disorder due to known physiological condition Plan HPI: patient is a 69 yo female with hx history of UTI, depression, bipolar 1 depression, osteoarthritis, status post cardiac catheterization, anxiety, GERD, insomnia, osteopenia, 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 Patient has been at [facility] for approximately 3 weeks. Patient originally seen in [facility] after patient called 911. Prior to that patient had a puppy but could no longer care for the puppy and the puppy was taken away. Patient appeared to have a breakdown and was calling sister incessantly regarding the puppy and apparently called 911 out of distress. Patient was transferred to [facility] on a section 12 from [facility] for MDD, intrusive thoughts and auditory hallucinations. She was on [facility] floor from 03/20/25 to 04/14/25: Patient was admitted for bipolar disorder with catatonia moderate protein calorie malnutrition. Was treated with IV Valium, multiple ECTs, was supported with parenteral nutrition. Slowly patient had improvement, became more verbal, more participatory and diet significantly increased and was able to be weaned off parenteral nutrition. Was seen by Psychiatry who adjusted medications. Patient is still having significant acute psychiatric issues so will be discharged to inpatient psych. During hospitalization patient did have episode of acute hypoxic respiratory failure possibly due to pneumonia and completed 1 week of ertapenem. Formulation/clinical reasoning: Continue presenting with manic/psychotic/catatonia features. Just recently taking PO medication the past 2-3 days plus starting eating, advance to regular diet prior to transferred to S1. Hospital course: 04/14/25: Continue with ECT -- as scheduled Ativan 0.5mg TID PO for anxiety/catatonia. Ativan 0.5mg BID PRN For severe anxiety Increase Zypexa 2.5 BID to 5mg BID to target psychotic/bipolar symptoms. BID PRN for severe agitation 04/16: Continue current treatment regimen. Encouraged to use her walker for ambulation at all times. Verbalized understanding and agrees with the plan. 04/17 missed ECT today since she ate breakfast; also had a witnessed fall but patient said she did not hit her head, neuro checks unremarkable. Patient showing some signs of improvement and more organized in speech today. Discussed ECT with her and she seemed to accept that she is better for said okay to continuing 04/18/25: Patient slept for 7 hours, compliant with medications, remain on 1-1 for for risk. Reports passive SI, reports heartburn. Given Tums, and other PRNs for anxiety, racing thoughts, severe anxiety. Usually lies a lot of PRNs. She is negative, not future focus I do not want to be here. Nobody helping me . U/A on 04/17/25 seemed fine. No UTI. Given extra Ativan 1mg and Zyprexa 5mg x1 today for severe anxiety and racing thoughts. 04/19/25: Patient slept better, remain on 1-1. No falls. Patient is negative, feeling like she is dying and not getting better. Passive SI I do not want to live anymore. I do not want to be here. I think I am going to hell . Patient does not want to having ECT tomorrow is not helping me. Make me worse . Reports depression anxiety. Patient encouraged to eat, need lots of direction and encouragement, and assurance. However, overall, patient is better than yesterday. 04/20 still disorganized, but steadily improving; continue tx plan 04/21 Were organized tolerating ECT continue ECT course improved ambulation Plan: Continues on ECT treatments Recently treated for acute hypoxic respiratory failure due to pneumonia, she completed 1 week of meropenem, also treated for UTI. Falls Patient has had two falls 04/16 and 04/[address] negative, no evidence of injury. Moves all extremities. CBC and BMP negative for any acute abnormalities UA to rule out medical etiology due to multiple falls. Urine pending GERD Continues on omeprazole Reason for continued inpatient stay Substantial Risk for: harm to self, inability to function and rapid decompensation Time Spent With Patient Time: Total time managing care of this patient today ____ minutes.
[2025-04-22] VITALS (9 sets, daily range): BP systolic 104–157; BP diastolic 60–97; PULSE 77–97; RESP 15–18; TEMP 36.1–37.1; O2SAT 96–97
--- NOTE | 2025-04-22 07:08 | HO.ANESPROP2 ---
[facility] Active Problems Active Problems: All Active Problems (Updated 04/22/25 @ 00:01 by Sandra Berrios) Bipolar II, mixed, severe with psychotic behavior (Acute) Catatonia (Acute) Delirium due to another medical condition (Acute) Delirium (Acute) Arthritis of right knee (Acute) Bipolar 1 disorder, depressed, severe (Acute) Elevated troponin (Acute) Chest discomfort (Acute) S/P cardiac catheterization (Acute) Varus deformity of knee (Acute) Osteoarthritis of left knee (Acute) Anxiety (Acute) GERD (gastroesophageal reflux disease) (Acute) Insomnia (Acute) Osteopenia (Acute) Murmur, cardiac (Acute) Status post total knee replacement, left (Acute) Acute deep vein thrombosis (DVT) of left tibial vein (Chronic) Past Medical History Medical History Delirium due to another medical condition History of skin cancer Hx of bladder problems VITO (generalized anxiety disorder) Murmur, cardiac Hx of thyroid nodule Osteopenia Hx of skin cancer, basal cell Seasonal allergies Insomnia Constipation GERD (gastroesophageal reflux disease) Anxiety History of electroconvulsive therapy Bipolar 1 disorder Functional capacity: independent ambulation Family History Family History Mother Basal cell carcinoma (BCC) in situ of skin Osteoporosis Hyperlipidemia Father CAD (coronary artery disease) Alcoholism Sister Osteoporosis Depression Brother Cancer of tongue Cancer of skin Family history of problems with anesthesia: No Surgical History Surgical History Hx of colonoscopy H/O elbow surgery History of back surgery History of Problems with Anesthesia: Yes Social History Social History Household Members: None Household Members Other:: brought in [facility] Housing: Apartment Are you a primary lawn care professional to a significant other at home: No Do you presently have visiting nurse or other home services: Yes Comment: 5 minute Patient Tobacco Use Status: Never used Tobacco Tobacco use type: Cigarette Years Smoked: 30+, now vapes e-Cigarette/Vaping Use: Currently Using Second Hand Smoke Exposure: No Substance Use Type: Crack/Cocaine Currently Displaying Signs/Symptoms of Drug Intoxication Withdrawal: No Have you been hit, kicked, punched, or otherwise hurt by someone within the past year? If so, by whom?: No Do you feel safe in your current relationship?: No Are you made to feel afraid or neglected: No Spiritual Healthcare Practices: No Scientology Healthcare Practices: No Cultural Healthcare Practices: No Advance Directives: Yes Advance Directives on File: Yes Advance Directives Date on File: 06/12/24 Do you have thoughts of harming others: None Do you have a plan to hurt others: No Plan Recently lost weight without trying: Yes How much weight loss: Unsure Eating poorly because of decreased appetite: No Nutrition screen score: 4 Nutrition Risks: No Nutritional Risk Patient : No : No Poor oral hygiene: No service: No Current occupational status: unemployed and retired 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 Sexual orientation: Straight/Heterosexual Meds Allergies Allergy/AdvReac Type Severity Reaction Status Date / Time bee pollen Allergy Severe Anaphylaxis Verified 03/21/25 14:48 levofloxacin (From Levaquin) Allergy Severe Itching Verified 03/21/25 14:48 enoxaparin (From Lovenox) Allergy Intermediate Rash Verified 03/21/25 14:48 Seasonal Allergies Allergy Mild Runny Nose Verified 03/21/25 14:48 venlafaxine (From Effexor) Allergy Mild Constipatio Verified 03/21/25 14:48 n Penicillins Allergy Unknown Unknown Verified 03/21/25 14:48 Active Medications: Current Medications Acetaminophen (Acetaminophen 325 Mg Tablet) 650 mg PO Q6H PRN PRN Reason: Headache/Pain, Scale 1-10 Last Admin: 04/18/25 17:10 Dose: 650 mg Al Hydroxide/Mg Hydroxide (Magnesium Hydrox/Alum Hydrox 30 Ml Oral.Susp) 30 ml PO Q6H PRN PRN Reason: Heartburn/Nausea Last Admin: 04/20/25 12:23 Dose: 30 ml Calcium Carbonate (Calcium Carbonate 750 Mg Tab.Chew) 750 mg PO Q6H PRN PRN Reason: Heartburn Last Admin: 04/19/25 10:50 Dose: 750 mg Clotrimazole (Clotrimazole 1 % Cream 15 Gm Tube) 1 appl TOPICAL BID GRECIA; Protocol Last Admin: 04/21/25 20:43 Dose: 1 appl Docusate Sodium (Docusate Sodium 100 Mg Capsule) 100 mg PO BID PRN PRN Reason: Constipation Last Admin: 04/18/25 15:29 Dose: 100 mg Hydroxyzine HCl (Hydroxyzine Hcl 25 Mg Tablet) 25 mg PO Q6H PRN PRN Reason: mild anxiety Last Admin: 04/19/25 20:58 Dose: 25 mg Loperamide HCl (Loperamide Hcl 2 Mg Capsule) 2 mg PO Q6H PRN PRN Reason: Diarrhea Lorazepam (Lorazepam 0.5 Mg Tablet) 0.5 mg PO TID [facility] Last Admin: 04/21/25 20:45 Dose: 0.5 mg Lorazepam (Lorazepam 1 Mg Tablet) 1 mg PO Q6H PRN PRN Reason: severe anxiety Last Admin: 04/20/25 16:11 Dose: 1 mg Magnesium Hydroxide (Milk Of Magnesia 30 Ml Oral.Susp) 30 ml PO DAILY PRN PRN Reason: Constipation Last Admin: 04/21/25 17:12 Dose: 30 ml Melatonin (Melatonin 3 Mg Tablet) 6 mg PO BEDTIME [facility] Last Admin: 04/21/25 20:44 Dose: 6 mg Naloxone HCl (Naloxone Hcl 0.4 Mg/Ml Vial) 0.04 mg IVPUSH Q5M PRN PRN Reason: Excessive sedation or RR < 8 Naloxone HCl (Naloxone Hcl 0.4 Mg/Ml Vial) 0.04 mg IVPUSH Q5M PRN PRN Reason: Excessive sedation or RR < 8 Naloxone HCl (Naloxone Hcl 0.4 Mg/Ml Vial) 0.04 mg IVPUSH Q5M PRN PRN Reason: Excessive sedation or RR < 8 Naloxone HCl (Naloxone Hcl 0.4 Mg/Ml Vial) 0.04 mg IVPUSH Q5M PRN PRN Reason: Excessive sedation or RR < 8 Nicotine (Nicotine 21 Mg Patch.Td24) 21 mg TRANSDERMA DAILY PRN PRN Reason: nicotine craving Nicotine Polacrilex (Nicotine Polacrilex 2 Mg Gum) 2 mg BUCCAL Q2H PRN PRN Reason: Nicotine Cravings Olanzapine (Olanzapine 5 Mg Tablet) 5 mg PO BID PRN PRN Reason: agitation Last Admin: 04/18/25 15:10 Dose: 5 mg Olanzapine (Olanzapine 5 Mg Tablet) 5 mg PO BID [facility] Last Admin: 04/21/25 20:44 Dose: 5 mg Omeprazole (Omeprazole 20 Mg Capsule.Dr) 20 mg PO DAILY@0630 [facility] Last Admin: 04/21/25 06:22 Dose: 20 mg Ondansetron HCl (Ondansetron Odt 4 Mg Tab.Rapdis) 4 mg TRANSLINGU Q6H PRN PRN Reason: Nausea and Vomiting Last Admin: 04/18/25 17:10 Dose: 4 mg Thiamine HCl (Thiamine Hcl 100 Mg Tablet) 100 mg PO BID [facility] Last Admin: 04/21/25 20:44 Dose: 100 mg Trazodone HCl (Trazodone Hcl 50 Mg Tablet) 50 mg PO BEDTIME MRX1 PRN PRN Reason: Insomnia Last Admin: 04/20/25 01:33 Dose: 50 mg Home Medications ?Medication ?Instructions ?Recorded ?Confirmed ?Last Taken ?Type docusate sodium 100 mg capsule 1 cap PO BID PRN Constipation 03/22/25 04/14/25 Unknown History loperamide 2 mg tablet 2 mg PO Q6H PRN Diarrhea 03/22/25 04/14/25 Unknown History lorazepam 0.5 mg tablet 0.5 mg PO TID 03/22/25 04/14/25 Unknown History melatonin 3 mg tablet 3 mg PO BEDTIME PRN Sleep 03/22/25 04/14/25 Unknown History ondansetron HCl 4 mg tablet 4 mg PO Q6H PRN Nausea And Vomiting 03/22/25 04/14/25 Unknown History pantoprazole 40 mg tablet,delayed 40 mg PO DAILY@0630 03/22/25 04/14/25 Unknown History release Exam Height,Weight and Vital Signs: Height 5 ft 7 in Weight 61.859 kg Last Vital Signs Temp 97 F 04/22/25 06:20 Pulse 77 04/22/25 06:20 Resp 15 04/22/25 06:20 BP 104/63 04/22/25 06:20 Pulse Ox 96 04/22/25 06:20 O2 Del Method Room Air 04/22/25 06:20 O2 Flow Rate 2 04/20/25 08:02 Pertinent Lab Results Pertinent Lab Results: Laboratory Tests 04/16/25 04/17/25 04/17/25 12:17 07:09 13:06 WBC 7.1 RBC 3.81 L Hgb 11.5 L Hct 35.7 L MCV 93.7 MCH 30.2 MCHC 32.2 RDW 15.1 Plt Count 476 H D MPV 8.4 L Immature Gran % (Auto) 1.0 H Neut % (Auto) 57.0 Lymph % (Auto) 31.7 Whiteside % (Auto) 8.6 Eos % (Auto) 1.0 Baso % (Auto) 0.7 Lymph # (Auto) 2.2 Whiteside # (Auto) 0.6 Eos # (Auto) 0.1 Baso # (Auto) 0.1 Abs Immat Gran (auto) 0.07 H Absolute Neuts (auto) 4.0 Absolute Nucleated RBC 0.000 Nucleated RBC % (auto) 0.0 Sodium Cancelled 143 Potassium Cancelled 4.2 Chloride Cancelled 111 H Carbon Dioxide Cancelled 25 Anion Gap Cancelled 11 L BUN Cancelled 13 Creatinine Cancelled 0.61 Estim Creat Clear Calc Cancelled 87.0 Estimated GFR Cancelled > 60 POC Glucose 99 Random Glucose Cancelled 78 Estimat Average Glucose Cancelled Hemoglobin A1c % Cancelled Calcium Cancelled 9.2 Total Bilirubin Cancelled AST Cancelled ALT Cancelled Alkaline Phosphatase Cancelled Troponin I High Sens Total Protein Cancelled Albumin Cancelled Triglycerides Cancelled Cholesterol Cancelled LDL Cholesterol, Calc Cancelled HDL Cholesterol Cancelled Vitamin B12 741 Folate 9.6 TSH Cancelled Free T4 Cancelled Urine Color Urine Appearance Urine pH Ur Specific [place] Urine Protein Urine Glucose (UA) Urine Ketones Urine Blood Urine Nitrite Ur Leukocyte Esterase Urine RBC Urine WBC Ur Squamous Epith Cells Calcium Oxalate Crystal Other Crystals Urine Bacteria Hyaline Casts 04/17/25 04/20/25 15:10 15:39 WBC RBC Hgb Hct MCV MCH MCHC RDW Plt Count MPV Immature Gran % (Auto) Neut % (Auto) Lymph % (Auto) [place] % (Auto) Eos % (Auto) Baso % (Auto) Lymph # (Auto) [place] # (Auto) Eos # (Auto) Baso # (Auto) Abs Immat Gran (auto) Absolute Neuts (auto) Absolute Nucleated RBC Nucleated RBC % (auto) Sodium Potassium Chloride Carbon Dioxide Anion Gap BUN Creatinine Estim Creat Clear Calc Estimated GFR POC Glucose Random Glucose Estimat Average Glucose Hemoglobin A1c % Calcium Total Bilirubin AST ALT Alkaline Phosphatase Troponin I High Sens 3.2 Total Protein Albumin Triglycerides Cholesterol LDL Cholesterol, Calc HDL Cholesterol Vitamin B12 Folate TSH Free T4 Urine Color Yellow Urine Appearance Clear Urine pH 6.0 Ur Specific [place] 1.025 Urine Protein Negative Urine Glucose (UA) Negative Urine Ketones Negative Urine Blood Negative Urine Nitrite Negative Ur Leukocyte Esterase Trace H Urine RBC 0-2 Urine WBC 0-5 Ur Squamous Epith Cells 3-5 Calcium Oxalate Crystal Present Other Crystals Present Urine Bacteria None Seen Hyaline Casts 0-2 Airway Mallampati Class: II TM Dist: >3cm Neck ROM: Full Loose/Missing/Broken Teeth: Yes, Upper and Lower Heart: RRR Lungs: CTA Assessment and Plan Assessment Anesthesia Assessment: Anesthesia Plan Discussed and Chart Reviewed Final Anesthetic Review Family History of Problems with Anesthesia: No History of Problems with Anesthesia: Yes NPO: Yes ASA Class: III Final Preanesthetic Review: Meds/Allgs Chart Reviewed, Consent Obtained/Reviewed and Anes Risks/Benef Reviewed Patient Risk: Intermediate Procedure Risk: Intermediate Anesthetic Plan Anesthetic Plan: GA Disposition: Standard PACU
--- NOTE | 2025-04-22 07:24 | MHC.SHP ---
Pre-Procedural Eval Section A - 24 Hr Update-Section A only Date of Service: 04/22/25 The patient is an INPATIENT: Yes Changes since office visit: No Cold of Flu in the past 2 weeks, No New Medical Problems, No Changes in Medication and No Patient answered all questions Section B - Complete if H&P > 30 days Chief Complaint: catatonia Details of Present Illness: incrementally better; agrees with ECT Allergies: Allergies Allergy/AdvReac Type Severity Reaction Status Date / Time bee pollen Allergy Severe Anaphylaxis Verified 03/21/25 14:48 levofloxacin (From Levaquin) Allergy Severe Itching Verified 03/21/25 14:48 enoxaparin (From Lovenox) Allergy Intermediate Rash Verified 03/21/25 14:48 Seasonal Allergies Allergy Mild Runny Nose Verified 03/21/25 14:48 venlafaxine (From Effexor) Allergy Mild Constipatio Verified 03/21/25 14:48 n Penicillins Allergy Unknown Unknown Verified 03/21/25 14:48 Review of Systems Sugical H&P ROS: Negative: Constitution and Yes, Specify: Gastrointestinal (epigastric pain/discomfort since yesterday) Exam Surgical H&P Exam: Normal: Heart (RRR) and Normal: Lungs (CTA b/l throughout) Plan Diagnosis/Plan: Unchanged I have reviewed the history and physical and performed a pertinent physical examination on my patient. No changes have occurred unless specified. Time Spent With Patient Time: Total time managing care of this patient today ____ minutes.
--- NOTE | 2025-04-22 07:24 | HO.ECTPROC ---
ECT Procedure Note Diagnosis/Treatment Date of Service: 04/22/25 Diagnosis: Bipolar disorder Previous ECT Date: 04/13/25 Current Treatment Number: 6 Treatment: Series Interval Clinical Notes: Pt with no c/o margaret e effects less labile tx bf had relatively short sz Time: Total time managing care of this patient today ____ minutes. ECT Settings Device: THYMATRON DGx Electrode Placement: Bifrontal Program/Pulse Width: 0.50 Energy Percent: 100 Seizure Duration By EEG (in seconds): 14 Medications Administration General Anesthetic: Etomidate (16) Muscle Relaxant: Succinylcholine (100) Ancillary Medications Analgesics: Torodol - Pre ECT Miscillaneous Medications: Flumazenil Airway Management Airway Management: Bag Mask Ventilation Treatment Recommendations Notes: had olanzapine 5 mg angella 1 mg post Pt Tolerated Procedure w/o Issue: Yes
[2025-04-22] MEDS: Clotrimazole 1 % Cream 15 GM TUBE 1 APPL TOPICAL (09:46)
--- NOTE | 2025-04-22 10:50 | PC.NURSE ---
Pt received 1mg Ativan and 5mg Zyprexa in the PACU for increased anxiety and agitation. Per provider Phillpi Rangel, scheduled 0900 Ativan and Zyprexa should be held d/t pt being in behavioral control and receiving the prior dose in the PACU. RN held scheduled Zyprexa and Ativan.
[2025-04-22] MEDS: OLANZapine 7.5 MG TABLET PO (20:41)
[2025-04-23 07:00] VITALS: BMI 22.1
[2025-04-23 08:00] VITALS: BP 106/63; PULSE 98; RESP 17; TEMP 36.9; O2SAT 99
[2025-04-23] MEDS: Clotrimazole 1 % Cream 15 GM TUBE 1 APPL TOPICAL (08:43)
[2025-04-23] MEDS: Magnesium Hydrox/Alum Hydrox 30 ML ORAL.SUSP PO (09:55)
--- NOTE | 2025-04-23 10:24 | P.PNPSI_ITS ---
Subjective Subjective Date of Service: 04/23/25 Reason For Visit: catatonia Subjective Notes: Conditional Voluntary Interim History: Pt superficially cooperative but easily frazzled overwhelmed irritable but cooperative with care Mental Status Exam Mental Status Exam Narrative: Appearance: Casually dressed, adequate hygiene, unkempt hair Behavior: more organized, but still perseverative, anxious; Adequate eye contact intermittent mild to moderate psychomotor agitation Speech: mostly Normal volume and prosody Thought process: More organized and more goal-directed Thought content: About seeing her sister; treatment Mood: anxious Affect:anxious labile irritable SI: None HI: None VH/AH:none Delusions: None expressed Insight/judgment: Impaired insight and judgment Memory/cog: Alert and oriented Diagnostics Vital Signs (24Hr): Vital Signs - 24 hr 04/22/25 20:00 04/23/25 08:00 Temperature 98.4 F 98.5 F Pulse Rate 97 98 Respiratory Rate 16 17 Blood Pressure 131/60 106/63 Pulse Oximetry 96 99 Oxygen Delivery Method Room Air Room Air BMI result Body Mass Index 21.4 Labs 04/17/25 13:06 04/17/25 13:06 Imaging Radiology Impressions: ITS Impressions Head CT 04/17/25 09:49 IMPRESSION: Stable exam. No acute intracranial findings. Electronically signed by: Massiel Tucker MD 04/17/2025 10:22 AM EDT Medications Medications Current Medications Acetaminophen (Acetaminophen 325 Mg Tablet) 650 mg PO Q6H PRN PRN Reason: Headache/Pain, Scale 1-10 Last Admin: 04/23/25 08:38 Dose: 650 mg Al Hydroxide/Mg Hydroxide (Magnesium Hydrox/Alum Hydrox 30 Ml Oral.Susp) 30 ml PO Q6H PRN PRN Reason: Heartburn/Nausea Last Admin: 04/23/25 09:55 Dose: 30 ml Aripiprazole (Aripiprazole 2 Mg Tablet) 4 mg PO DAILY GRECIA Last Admin: 04/23/25 08:37 Dose: 4 mg Calcium Carbonate (Calcium Carbonate 750 Mg Tab.Chew) 750 mg PO Q6H PRN PRN Reason: Heartburn Last Admin: 04/22/25 14:38 Dose: 750 mg Clotrimazole (Clotrimazole 1 % Cream 15 Gm Tube) 1 appl TOPICAL BID GRECIA; Protocol Last Admin: 04/23/25 08:43 Dose: 1 appl Docusate Sodium (Docusate Sodium 100 Mg Capsule) 100 mg PO BID PRN PRN Reason: Constipation Last Admin: 04/18/25 15:29 Dose: 100 mg Hydroxyzine HCl (Hydroxyzine Hcl 25 Mg Tablet) 25 mg PO Q6H PRN PRN Reason: mild anxiety Last Admin: 04/22/25 20:40 Dose: 25 mg Loperamide HCl (Loperamide Hcl 2 Mg Capsule) 2 mg PO Q6H PRN PRN Reason: Diarrhea Lorazepam (Lorazepam 0.5 Mg Tablet) 0.5 mg PO TID [facility] Last Admin: 04/23/25 08:38 Dose: 0.5 mg Lorazepam (Lorazepam 1 Mg Tablet) 1 mg PO Q6H PRN PRN Reason: severe anxiety Last Admin: 04/22/25 15:18 Dose: 1 mg Magnesium Hydroxide (Milk Of Magnesia 30 Ml Oral.Susp) 30 ml PO DAILY PRN PRN Reason: Constipation Last Admin: 04/21/25 17:12 Dose: 30 ml Melatonin (Melatonin 3 Mg Tablet) 6 mg PO BEDTIME [facility] Last Admin: 04/22/25 20:40 Dose: 6 mg Naloxone HCl (Naloxone Hcl 0.4 Mg/Ml Vial) 0.04 mg IVPUSH Q5M PRN PRN Reason: Excessive sedation or RR < 8 Naloxone HCl (Naloxone Hcl 0.4 Mg/Ml Vial) 0.04 mg IVPUSH Q5M PRN PRN Reason: Excessive sedation or RR < 8 Nicotine (Nicotine 21 Mg Patch.Td24) 21 mg TRANSDERMA DAILY PRN PRN Reason: nicotine craving Nicotine Polacrilex (Nicotine Polacrilex 2 Mg Gum) 2 mg BUCCAL Q2H PRN PRN Reason: Nicotine Cravings Olanzapine (Olanzapine 5 Mg Tablet) 5 mg PO BID PRN PRN Reason: agitation Last Admin: 04/22/25 13:50 Dose: 5 mg Olanzapine (Olanzapine 7.5 Mg Tablet) 7.5 mg PO BEDTIME [facility] Last Admin: 04/22/25 20:41 Dose: 7.5 mg Omeprazole (Omeprazole 20 Mg Capsule.Dr) 20 mg PO BID@0630,1630 [facility] Ondansetron HCl (Ondansetron Odt 4 Mg Tab.Rapdis) 4 mg TRANSLINGU Q6H PRN PRN Reason: Nausea and Vomiting Last Admin: 04/18/25 17:10 Dose: 4 mg Thiamine HCl (Thiamine Hcl 100 Mg Tablet) 100 mg PO BID GRECIA Last Admin: 04/23/25 08:38 Dose: 100 mg Trazodone HCl (Trazodone Hcl 50 Mg Tablet) 50 mg PO BEDTIME MRX1 PRN PRN Reason: Insomnia Last Admin: 04/22/25 20:40 Dose: 50 mg Allergies Allergies Allergy/AdvReac Type Severity Reaction Status Date / Time bee pollen Allergy Severe Anaphylaxis Verified 03/21/25 14:48 levofloxacin (From Levaquin) Allergy Severe Itching Verified 03/21/25 14:48 enoxaparin (From Lovenox) Allergy Intermediate Rash Verified 03/21/25 14:48 Seasonal Allergies Allergy Mild Runny Nose Verified 03/21/25 14:48 venlafaxine (From Effexor) Allergy Mild Constipatio Verified 03/21/25 14:48 n Penicillins Allergy Unknown Unknown Verified 03/21/25 14:48 Assessment & Plan Assessment & Plan (1) Catatonia: Status: Acute Code(s): F06.1 - Catatonic disorder due to known physiological condition Plan HPI: patient is a 69 yo female with hx history of UTI, depression, bipolar 1 depression, osteoarthritis, status post cardiac catheterization, anxiety, GERD, insomnia, osteopenia, 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 Patient has been at [facility] for approximately 3 weeks. Patient originally seen in [facility] after patient called 911. Prior to that patient had a puppy but could no longer care for the puppy and the puppy was taken away. Patient appeared to have a breakdown and was calling sister incessantly regarding the puppy and apparently called 911 out of distress. Patient was transferred to [facility] on a section 12 from [facility] for MDD, intrusive thoughts and auditory hallucinations. She was on Med floor from 03/20/25 to 04/14/25: Patient was admitted for bipolar disorder with catatonia moderate protein calorie malnutrition. Was treated with IV Valium, multiple ECTs, was supported with parenteral nutrition. Slowly patient had improvement, became more verbal, more participatory and diet significantly increased and was able to be weaned off parenteral nutrition. Was seen by Psychiatry who adjusted medications. Patient is still having significant acute psychiatric issues so will be discharged to inpatient psych. During hospitalization patient did have episode of acute hypoxic respiratory failure possibly due to pneumonia and completed 1 week of ertapenem. Formulation/clinical reasoning: Continue presenting with manic/psychotic/catatonia features. Just recently taking PO medication the past 2-3 days plus starting eating, advance to regular diet prior to transferred to S1. Hospital course: 04/14/25: Continue with ECT -- as scheduled Ativan 0.5mg TID PO for anxiety/catatonia. Ativan 0.5mg BID PRN For severe anxiety Increase Zypexa 2.5 BID to 5mg BID to target psychotic/bipolar symptoms. BID PRN for severe agitation 04/16: Continue current treatment regimen. Encouraged to use her walker for ambulation at all times. Verbalized understanding and agrees with the plan. 04/17 missed ECT today since she ate breakfast; also had a witnessed fall but patient said she did not hit her head, neuro checks unremarkable. Patient showing some signs of improvement and more organized in speech today. Discussed ECT with her and she seemed to accept that she is better for said okay to continuing 04/18/25: Patient slept for 7 hours, compliant with medications, remain on 1-1 for for risk. Reports passive SI, reports heartburn. Given Tums, and other PRNs for anxiety, racing thoughts, severe anxiety. Usually lies a lot of PRNs. She is negative, not future focus I do not want to be here. Nobody helping me . U/A on 04/17/25 seemed fine. No UTI. Given extra Ativan 1mg and Zyprexa 5mg x1 today for severe anxiety and racing thoughts. 04/19/25: Patient slept better, remain on 1-1. No falls. Patient is negative, feeling like she is dying and not getting better. Passive SI I do not want to live anymore. I do not want to be here. I think I am going to hell . Patient does not want to having ECT tomorrow is not helping me. Make me worse . Reports depression anxiety. Patient encouraged to eat, need lots of direction and encouragement, and assurance. However, overall, patient is better than yesterday. 04/20 still disorganized, but steadily improving; continue tx plan 04/21 Were organized tolerating ECT continue ECT course improved ambulation Plan: 10/23/25 Cont ect inc [facility] for reflux Falls Patient has had two falls 04/16 and 04/[address] negative, no evidence of injury. Moves all extremities. CBC and BMP negative for any acute abnormalities UA to rule out medical etiology due to multiple falls. Urine pending GERD Continues on omeprazole Reason for continued inpatient stay Substantial Risk for: harm to self and rapid decompensation Time Spent With Patient Time: Total time managing care of this patient today ____ minutes.
[2025-04-23 20:22] VITALS: BP 94/55; PULSE 97; RESP 16; TEMP 36.9; O2SAT 95
[2025-04-23] MEDS: OLANZapine 7.5 MG TABLET PO (20:31)
--- NOTE | 2025-04-23 23:49 | P.PNPSI_ITS ---
Subjective Subjective Date of Service: 04/24/25 Reason For Visit: catatonia Subjective Notes: Conditional Voluntary Healthcare Proxy: Yes Interim History: Pt tolerating ect remains depressed irritable person affect c/o reflux sx ongoing cooperative with medication abilify staarted Mental Status Exam Mental Status Exam Narrative: Appearance: Casually dressed, adequate hygiene, unkempt hair Behavior: more organized, but still perseverative, anxious; Adequate eye contact intermittent mild to moderate psychomotor agitation Speech: mostly Normal volume and prosody Thought process: More organized and more goal-directed Thought content: About seeing her sister; treatment c/o reflux sx Mood: anxious Affect:anxious labile irritable dysphoric SI: None HI: None VH/AH:none Delusions: None expressed Insight/judgment: Impaired insight and judgment Memory/cog: Alert and oriented Diagnostics Vital Signs (24Hr): Vital Signs - 24 hr 04/23/25 08:00 04/23/25 20:22 Temperature 98.5 F 98.5 F Pulse Rate 98 97 Respiratory Rate 17 16 Blood Pressure 106/63 94/55 L Pulse Oximetry 99 95 Oxygen Delivery Method Room Air Room Air BMI result Body Mass Index 22.1 Labs 04/17/25 13:06 04/17/25 13:06 Imaging Radiology Impressions: ITS Impressions Head CT 04/17/25 09:49 IMPRESSION: Stable exam. No acute intracranial findings. Electronically signed by: Massiel Tucker MD 04/17/2025 10:22 AM EDT RP Medications Medications Current Medications Acetaminophen (Acetaminophen 325 Mg Tablet) 650 mg PO Q6H PRN PRN Reason: Headache/Pain, Scale 1-10 Last Admin: 04/23/25 08:38 Dose: 650 mg Al Hydroxide/Mg Hydroxide (Magnesium Hydrox/Alum Hydrox 30 Ml Oral.Susp) 30 ml PO Q6H PRN PRN Reason: Heartburn/Nausea Last Admin: 04/23/25 09:55 Dose: 30 ml Aripiprazole (Aripiprazole 2 Mg Tablet) 4 mg PO DAILY GRECIA Last Admin: 04/23/25 08:37 Dose: 4 mg Calcium Carbonate (Calcium Carbonate 750 Mg Tab.Chew) 750 mg PO Q6H PRN PRN Reason: Heartburn Last Admin: 04/22/25 14:38 Dose: 750 mg Clotrimazole (Clotrimazole 1 % Cream 15 Gm Tube) 1 appl TOPICAL BID [facility]; Protocol Last Admin: 04/23/25 20:34 Dose: Not Given Docusate Sodium (Docusate Sodium 100 Mg Capsule) 100 mg PO BID PRN PRN Reason: Constipation Last Admin: 04/18/25 15:29 Dose: 100 mg Hydroxyzine HCl (Hydroxyzine Hcl 25 Mg Tablet) 25 mg PO Q6H PRN PRN Reason: mild anxiety Last Admin: 04/22/25 20:40 Dose: 25 mg Loperamide HCl (Loperamide Hcl 2 Mg Capsule) 2 mg PO Q6H PRN PRN Reason: Diarrhea Lorazepam (Lorazepam 0.5 Mg Tablet) 0.5 mg PO TID [facility] Last Admin: 04/23/25 20:31 Dose: 0.5 mg Lorazepam (Lorazepam 1 Mg Tablet) 1 mg PO Q6H PRN PRN Reason: severe anxiety Last Admin: 04/22/25 15:18 Dose: 1 mg Magnesium Hydroxide (Milk Of Magnesia 30 Ml Oral.Susp) 30 ml PO DAILY PRN PRN Reason: Constipation Last Admin: 04/21/25 17:12 Dose: 30 ml Melatonin (Melatonin 3 Mg Tablet) 6 mg PO BEDTIME [facility] Last Admin: 04/23/25 20:30 Dose: 6 mg Naloxone HCl (Naloxone Hcl 0.4 Mg/Ml Vial) 0.04 mg IVPUSH Q5M PRN PRN Reason: Excessive sedation or RR < 8 Naloxone HCl (Naloxone Hcl 0.4 Mg/Ml Vial) 0.04 mg IVPUSH Q5M PRN PRN Reason: Excessive sedation or RR < 8 Nicotine (Nicotine 21 Mg Patch.Td24) 21 mg TRANSDERMA DAILY PRN PRN Reason: nicotine craving Nicotine Polacrilex (Nicotine Polacrilex 2 Mg Gum) 2 mg BUCCAL Q2H PRN PRN Reason: Nicotine Cravings Olanzapine (Olanzapine 5 Mg Tablet) 5 mg PO BID PRN PRN Reason: agitation Last Admin: 04/22/25 13:50 Dose: 5 mg Olanzapine (Olanzapine 7.5 Mg Tablet) 7.5 mg PO BEDTIME [facility] Last Admin: 04/23/25 20:31 Dose: 7.5 mg Omeprazole (Omeprazole 20 Mg Capsule.Dr) 20 mg PO BID@0630,1630 [facility] Last Admin: 04/23/25 15:49 Dose: 20 mg Ondansetron HCl (Ondansetron Odt 4 Mg Tab.Rapdis) 4 mg TRANSLINGU Q6H PRN PRN Reason: Nausea and Vomiting Last Admin: 04/18/25 17:10 Dose: 4 mg Thiamine HCl (Thiamine Hcl 100 Mg Tablet) 100 mg PO BID GRECIA Last Admin: 04/23/25 20:30 Dose: 100 mg Trazodone HCl (Trazodone Hcl 50 Mg Tablet) 50 mg PO BEDTIME MRX1 PRN PRN Reason: Insomnia Last Admin: 04/22/25 20:40 Dose: 50 mg Allergies Allergies Allergy/AdvReac Type Severity Reaction Status Date / Time bee pollen Allergy Severe Anaphylaxis Verified 03/21/25 14:48 levofloxacin (From Levaquin) Allergy Severe Itching Verified 03/21/25 14:48 enoxaparin (From Lovenox) Allergy Intermediate Rash Verified 03/21/25 14:48 Seasonal Allergies Allergy Mild Runny Nose Verified 03/21/25 14:48 venlafaxine (From Effexor) Allergy Mild Constipatio Verified 03/21/25 14:48 n Penicillins Allergy Unknown Unknown Verified 03/21/25 14:48 Assessment & Plan Assessment & Plan (1) Catatonia: Status: Acute Code(s): F06.1 - Catatonic disorder due to known physiological condition Plan HPI: patient is a 69 yo female with hx history of UTI, depression, bipolar 1 depression, osteoarthritis, status post cardiac catheterization, anxiety, GERD, insomnia, osteopenia, 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 Patient has been at [facility] for approximately 3 weeks. Patient originally seen in [facility] after patient called 911. Prior to that patient had a puppy but could no longer care for the puppy and the puppy was taken away. Patient appeared to have a breakdown and was calling sister incessantly regarding the puppy and apparently called 911 out of distress. Patient was transferred to [facility] on a section 12 from [facility] for MDD, intrusive thoughts and auditory hallucinations. She was on Med floor from 03/20/25 to 04/14/25: Patient was admitted for bipolar disorder with catatonia moderate protein calorie malnutrition. Was treated with IV Valium, multiple ECTs, was supported with parenteral nutrition. Slowly patient had improvement, became more verbal, more participatory and diet significantly increased and was able to be weaned off parenteral nutrition. Was seen by Psychiatry who adjusted medications. Patient is still having significant acute psychiatric issues so will be discharged to inpatient psych. During hospitalization patient did have episode of acute hypoxic respiratory failure possibly due to pneumonia and completed 1 week of ertapenem. Formulation/clinical reasoning: Continue presenting with manic/psychotic/catatonia features. Just recently taking PO medication the past 2-3 days plus starting eating, advance to regular diet prior to transferred to S1. Hospital course: 04/14/25: Continue with ECT -- as scheduled Ativan 0.5mg TID PO for anxiety/catatonia. Ativan 0.5mg BID PRN For severe anxiety Increase Zypexa 2.5 BID to 5mg BID to target psychotic/bipolar symptoms. BID PRN for severe agitation 04/16: Continue current treatment regimen. Encouraged to use her walker for ambulation at all times. Verbalized understanding and agrees with the plan. 04/17 missed ECT today since she ate breakfast; also had a witnessed fall but patient said she did not hit her head, neuro checks unremarkable. Patient showing some signs of improvement and more organized in speech today. Discussed ECT with her and she seemed to accept that she is better for said okay to continuing 04/18/25: Patient slept for 7 hours, compliant with medications, remain on 1-1 for for risk. Reports passive SI, reports heartburn. Given Tums, and other PRNs for anxiety, racing thoughts, severe anxiety. Usually lies a lot of PRNs. She is negative, not future focus I do not want to be here. Nobody helping me . U/A on 04/17/25 seemed fine. No UTI. Given extra Ativan 1mg and Zyprexa 5mg x1 today for severe anxiety and racing thoughts. 04/19/25: Patient slept better, remain on 1-1. No falls. Patient is negative, feeling like she is dying and not getting better. Passive SI I do not want to live anymore. I do not want to be here. I think I am going to hell . Patient does not want to having ECT tomorrow is not helping me. Make me worse . Reports depression anxiety. Patient encouraged to eat, need lots of direction and encouragement, and assurance. However, overall, patient is better than yesterday. 04/20 still disorganized, but steadily improving; continue tx plan 04/21 Were organized tolerating ECT continue ECT course improved ambulation Plan: 04/23/25 Cont ect inc abilify prilosec for reflux 04/24/25 Pt tolerated todays ect no psychosis dysphoric irritable but much improved carafate and prilosec for gerd inc abilify 10 mg ect note reviewed dr holden Patient educated on: medication risk/benefits, ECT and medical condition Informed Consent: further education needed Reason for continued inpatient stay Substantial Risk for: inability to function, rapid decompensation and med/psych decompensation Time Spent With Patient Time: Total time managing care of this patient today _30___ minutes.
[2025-04-24] VITALS (9 sets, daily range): BP systolic 115–147; BP diastolic 57–82; PULSE 66–91; RESP 12–17; TEMP 36.2–36.9; O2SAT 94–99
--- NOTE | 2025-04-24 06:47 | P.CONAN_ITS ---
[facility] Active Problems Active Problems: All Active Problems Bipolar II, mixed, severe with psychotic behavior (Acute) Catatonia (Acute) Delirium due to another medical condition (Acute) Delirium (Acute) Arthritis of right knee (Acute) Bipolar 1 disorder, depressed, severe (Acute) Elevated troponin (Acute) Chest discomfort (Acute) S/P cardiac catheterization (Acute) Varus deformity of knee (Acute) Osteoarthritis of left knee (Acute) Anxiety (Acute) GERD (gastroesophageal reflux disease) (Acute) Insomnia (Acute) Osteopenia (Acute) Murmur, cardiac (Acute) Status post total knee replacement, left (Acute) Acute deep vein thrombosis (DVT) of left tibial vein (Chronic) Past Medical History Medical History Delirium due to another medical condition History of skin cancer Hx of bladder problems VITO (generalized anxiety disorder) Murmur, cardiac Hx of thyroid nodule Osteopenia Hx of skin cancer, basal cell Seasonal allergies Insomnia Constipation GERD (gastroesophageal reflux disease) Anxiety History of electroconvulsive therapy Bipolar 1 disorder Functional capacity: independent ambulation Family History Family History Mother Basal cell carcinoma (BCC) in situ of skin Osteoporosis Hyperlipidemia Father CAD (coronary artery disease) Alcoholism Sister Osteoporosis Depression Brother Cancer of tongue Cancer of skin Family history of problems with anesthesia: No Surgical History Surgical History Hx of colonoscopy H/O elbow surgery History of back surgery History of Problems with Anesthesia: No Social History Social History Household Members: None Household Members Other:: [facility] Housing: Apartment Are you a primary healthcare risk control consultant to a significant other at home: No Do you presently have visiting nurse or other home services: Yes Comment: 5 minute Patient Tobacco Use Status: Never used Tobacco Tobacco use type: Cigarette Years Smoked: 30+, now vapes e-Cigarette/Vaping Use: Currently Using Second Hand Smoke Exposure: No Substance Use Type: Crack/Cocaine Currently Displaying Signs/Symptoms of Drug Intoxication Withdrawal: No Have you been hit, kicked, punched, or otherwise hurt by someone within the past year? If so, by whom?: No Do you feel safe in your current relationship?: No Are you made to feel afraid or neglected: No Spiritual Healthcare Practices: No Taoism Healthcare Practices: No Cultural Healthcare Practices: No Advance Directives: Yes Advance Directives on File: Yes Advance Directives Date on File: 06/12/24 Do you have thoughts of harming others: None Do you have a plan to hurt others: No Plan Recently lost weight without trying: Yes How much weight loss: Unsure Eating poorly because of decreased appetite: No Nutrition screen score: 4 Nutrition Risks: No Nutritional Risk Patient : No : No Poor oral hygiene: No service: No Current occupational status: unemployed and retired 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 Sexual orientation: Straight/Heterosexual Meds Allergies Allergy/AdvReac Type Severity Reaction Status Date / Time bee pollen Allergy Severe Anaphylaxis Verified 03/21/25 14:48 levofloxacin (From Levaquin) Allergy Severe Itching Verified 03/21/25 14:48 enoxaparin (From Lovenox) Allergy Intermediate Rash Verified 03/21/25 14:48 Seasonal Allergies Allergy Mild Runny Nose Verified 03/21/25 14:48 venlafaxine (From Effexor) Allergy Mild Constipatio Verified 03/21/25 14:48 n Penicillins Allergy Unknown Unknown Verified 03/21/25 14:48 Active Medications: Current Medications Acetaminophen (Acetaminophen 325 Mg Tablet) 650 mg PO Q6H PRN PRN Reason: Headache/Pain, Scale 1-10 Last Admin: 04/23/25 08:38 Dose: 650 mg Al Hydroxide/Mg Hydroxide (Magnesium Hydrox/Alum Hydrox 30 Ml Oral.Susp) 30 ml PO Q6H PRN PRN Reason: Heartburn/Nausea Last Admin: 04/23/25 09:55 Dose: 30 ml Aripiprazole (Aripiprazole 2 Mg Tablet) 4 mg PO DAILY [facility] Last Admin: 04/23/25 08:37 Dose: 4 mg Calcium Carbonate (Calcium Carbonate 750 Mg Tab.Chew) 750 mg PO Q6H PRN PRN Reason: Heartburn Last Admin: 04/22/25 14:38 Dose: 750 mg Clotrimazole (Clotrimazole 1 % Cream 15 Gm Tube) 1 appl TOPICAL BID [facility]; Protocol Last Admin: 04/23/25 20:34 Dose: Not Given Docusate Sodium (Docusate Sodium 100 Mg Capsule) 100 mg PO BID PRN PRN Reason: Constipation Last Admin: 04/18/25 15:29 Dose: 100 mg Hydroxyzine HCl (Hydroxyzine Hcl 25 Mg Tablet) 25 mg PO Q6H PRN PRN Reason: mild anxiety Last Admin: 04/22/25 20:40 Dose: 25 mg Loperamide HCl (Loperamide Hcl 2 Mg Capsule) 2 mg PO Q6H PRN PRN Reason: Diarrhea Lorazepam (Lorazepam 0.5 Mg Tablet) 0.5 mg PO TID [facility] Last Admin: 04/23/25 20:31 Dose: 0.5 mg Lorazepam (Lorazepam 1 Mg Tablet) 1 mg PO Q6H PRN PRN Reason: severe anxiety Last Admin: 04/22/25 15:18 Dose: 1 mg Magnesium Hydroxide (Milk Of Magnesia 30 Ml Oral.Susp) 30 ml PO DAILY PRN PRN Reason: Constipation Last Admin: 04/21/25 17:12 Dose: 30 ml Melatonin (Melatonin 3 Mg Tablet) 6 mg PO BEDTIME [facility] Last Admin: 04/23/25 20:30 Dose: 6 mg Naloxone HCl (Naloxone Hcl 0.4 Mg/Ml Vial) 0.04 mg IVPUSH Q5M PRN PRN Reason: Excessive sedation or RR < 8 Naloxone HCl (Naloxone Hcl 0.4 Mg/Ml Vial) 0.04 mg IVPUSH Q5M PRN PRN Reason: Excessive sedation or RR < 8 Nicotine (Nicotine 21 Mg Patch.Td24) 21 mg TRANSDERMA DAILY PRN PRN Reason: nicotine craving Nicotine Polacrilex (Nicotine Polacrilex 2 Mg Gum) 2 mg BUCCAL Q2H PRN PRN Reason: Nicotine Cravings Olanzapine (Olanzapine 5 Mg Tablet) 5 mg PO BID PRN PRN Reason: agitation Last Admin: 04/22/25 13:50 Dose: 5 mg Olanzapine (Olanzapine 7.5 Mg Tablet) 7.5 mg PO BEDTIME [facility] Last Admin: 04/23/25 20:31 Dose: 7.5 mg Omeprazole (Omeprazole 20 Mg Capsule.Dr) 20 mg PO BID@0630,1630 [facility] Last Admin: 04/24/25 05:43 Dose: Not Given Ondansetron HCl (Ondansetron Odt 4 Mg Tab.Rapdis) 4 mg TRANSLINGU Q6H PRN PRN Reason: Nausea and Vomiting Last Admin: 04/18/25 17:10 Dose: 4 mg Thiamine HCl (Thiamine Hcl 100 Mg Tablet) 100 mg PO BID [facility] Last Admin: 04/23/25 20:30 Dose: 100 mg Trazodone HCl (Trazodone Hcl 50 Mg Tablet) 50 mg PO BEDTIME MRX1 PRN PRN Reason: Insomnia Last Admin: 04/22/25 20:40 Dose: 50 mg Home Medications ?Medication ?Instructions ?Recorded ?Confirmed ?Last Taken ?Type docusate sodium 100 mg capsule 1 cap PO BID PRN Consti pation 03/22/25 04/14/25 Unknown History loperamide 2 mg tablet 2 mg PO Q6H PRN Diarrhea 04/14/25 Unknown History lorazepam 0.5 mg tablet 0.5 mg PO TID 03/22/2504/14 Unknown History melatonin 3 mg tablet 3 mg PO BEDTIME PRN Sleep 04/14/25 Unknown History ondansetron HCl 4 mg tablet 4 mg PO Q6H PRN Nausea And Vomiting 03/22/25 04/14/25 Unknown History pantoprazole 40 mg tablet,delayed 40 mg PO DAILY@0630 03/22/25 04/14/25 Unknown History release Exam Height,Weight and Vital Signs: Height 5 ft 7 in Weight 64.013 kg Last Vital Signs Temp 97.3 F 04/24/25 06:23 Pulse 75 04/24/25 06:23 Resp 12 04/24/25 06:23 BP 118/75 04/24/25 06:23 Pulse Ox 97 04/24/25 06:23 O2 Del Method Room Air 04/24/25 06:23 O2 Flow Rate 2 04/22/25 08:00 Pertinent Lab Results Pertinent Lab Results: Laboratory Tests 04/16/25 04/17/25 04/17/25 12:17 07:09 13:06 WBC 7.1 RBC 3.81 L Hgb 11.5 L Hct 35.7 L MCV 93.7 MCH 30.2 MCHC 32.2 RDW 15.1 Plt Count 476 H D MPV 8.4 L Immature Gran % (Auto) 1.0 H Neut % (Auto) 57.0 Lymph % (Auto) 31.7 Hardy % (Auto) 8.6 Eos % (Auto) 1.0 Baso % (Auto) 0.7 Lymph # (Auto) 2.2 Hardy # (Auto) 0.6 Eos # (Auto) 0.1 Baso # (Auto) 0.1 Abs Immat Gran (auto) 0.07 H Absolute Neuts (auto) 4.0 Absolute Nucleated RBC 0.000 Nucleated RBC % (auto) 0.0 Sodium Cancelled 143 Potassium Cancelled 4.2 Chloride Cancelled 111 H Carbon Dioxide Cancelled 25 Anion Gap Cancelled 11 L BUN Cancelled 13 Creatinine Cancelled 0.61 Estim Creat Clear Calc Cancelled 87.0 Estimated GFR Cancelled > 60 POC Glucose 99 Random Glucose Cancelled 78 Estimat Average Glucose Cancelled Hemoglobin A1c % Cancelled Calcium Cancelled 9.2 Total Bilirubin Cancelled AST Cancelled ALT Cancelled Alkaline Phosphatase Cancelled Troponin I High Sens Total Protein Cancelled Albumin Cancelled Triglycerides Cancelled Cholesterol Cancelled LDL Cholesterol, Calc Cancelled HDL Cholesterol Cancelled Vitamin B12 741 Folate 9.6 TSH Cancelled Free T4 Cancelled Urine Color Urine Appearance Urine pH Ur Specific [place] Urine Protein Urine Glucose (UA) Urine Ketones Urine Blood Urine Nitrite Ur Leukocyte Esterase Urine RBC Urine WBC Ur Squamous Epith Cells Calcium Oxalate Crystal Other Crystals Urine Bacteria Hyaline Casts 04/17/25 04/20/25 15:10 15:39 WBC RBC Hgb Hct MCV MCH MCHC RDW Plt Count MPV Immature Gran % (Auto) Neut % (Auto) Lymph % (Auto) Hardy % (Auto) Eos % (Auto) Baso % (Auto) Lymph # (Auto) Hardy # (Auto) Eos # (Auto) Baso # (Auto) Abs Immat Gran (auto) Absolute Neuts (auto) Absolute Nucleated RBC Nucleated RBC % (auto) Sodium Potassium Chloride Carbon Dioxide Anion Gap BUN Creatinine Estim Creat Clear Calc Estimated GFR POC Glucose Random Glucose Estimat Average Glucose Hemoglobin A1c % Calcium Total Bilirubin AST ALT Alkaline Phosphatase Troponin I High Sens 3.2 Total Protein Albumin Triglycerides Cholesterol LDL Cholesterol, Calc HDL Cholesterol Vitamin B12 Folate TSH Free T4 Urine Color Yellow Urine Appearance Clear Urine pH 6.0 Ur Specific [place] 1.025 Urine Protein Negative Urine Glucose (UA) Negative Urine Ketones Negative Urine Blood Negative Urine Nitrite Negative Ur Leukocyte Esterase Trace H Urine RBC 0-2 Urine WBC 0-5 Ur Squamous Epith Cells 3-5 Calcium Oxalate Crystal Present Other Crystals Present Urine Bacteria None Seen Hyaline Casts 0-2 Airway Mallampati Class: II (edentulous) TM Dist: >3cm Neck ROM: Poor Heart: rrr Lungs: cta Assessment and Plan Assessment Anesthesia Assessment: Anesthesia Plan Discussed and Chart Reviewed Final Anesthetic Review Family History of Problems with Anesthesia: No History of Problems with Anesthesia: No NPO: Yes ASA Class: III Final Preanesthetic Review: No Changes in Pt Med Stat, Meds/Allgs Chart Reviewed and Consent Obtained/Reviewed Patient Risk: Intermediate Procedure Risk: Intermediate Anesthetic Plan Anesthetic Plan: GA Disposition: Standard PACU
[2025-04-24] MEDS: Lactated Ringers 1,000 ML 50 ML IVCONT (06:50)
--- NOTE | 2025-04-24 07:33 | MHC.SHP ---
Pre-Procedural Eval Section A - 24 Hr Update-Section A only Date of Service: 04/24/25 The patient is an INPATIENT: Yes Changes since office visit: No Cold of Flu in the past 2 weeks, No New Medical Problems, No Changes in Medication and No Patient answered all questions The patient has been examined within 24 hours of the surgical procedure. The History & Physical has been completed within 30 days and I have reviewed it.: Yes Section B - Complete if H&P > 30 days Chief Complaint: catatonia Allergies: Allergies Allergy/AdvReac Type Severity Reaction Status Date / Time bee pollen Allergy Severe Anaphylaxis Verified 03/21/25 14:48 levofloxacin (From Levaquin) Allergy Severe Itching Verified 03/21/25 14:48 enoxaparin (From Lovenox) Allergy Intermediate Rash Verified 03/21/25 14:48 Seasonal Allergies Allergy Mild Runny Nose Verified 03/21/25 14:48 venlafaxine (From Effexor) Allergy Mild Constipatio Verified 03/21/25 14:48 n Penicillins Allergy Unknown Unknown Verified 03/21/25 14:48 Plan Diagnosis/Plan: Unchanged I have reviewed the history and physical and performed a pertinent physical examination on my patient. No changes have occurred unless specified. Time Spent With Patient Time: Total time managing care of this patient today __30__ minutes.
--- NOTE | 2025-04-24 07:50 | HO.ECTPROC ---
ECT Procedure Note Diagnosis/Treatment Date of Service: 04/24/25 Diagnosis: Bipolar disorder Previous ECT Date: 04/22/25 Current Treatment Number: 7 Treatment: Series Interval Clinical Notes: Pt isn't sure if ECT is helping but appears less anxious. Denies any issues with last tx. See [facility] psych notes for more details Time: Total time managing care of this patient today ____ minutes. ECT Settings Device: THYMATRON DGx Electrode Placement: Bifrontal Program/Pulse Width: 0.50 Energy Percent: 100 Seizure Duration By EEG (in seconds): 39 By Motor Observation (in seconds): 12 Medications Administration General Anesthetic: Etomidate (16 mg) Muscle Relaxant: Succinylcholine (100 mg) Ancillary Medications Miscillaneous Medications: Propofol (30 mg) Airway Management Airway Management: Bag Mask Ventilation Treatment Recommendations No Changes Recommended: No change Pt Tolerated Procedure w/o Issue: Yes
[2025-04-24] MEDS: Clotrimazole 1 % Cream 15 GM TUBE 1 APPL TOPICAL ×2 (08:57→20:21)
--- NOTE | 2025-04-24 09:38 | PC.NURSE ---
Patient back from ECT about 9 AM. Pt denies dizziness, denies nausea, no pain. Upon arrival back to the unit pt stated feeling so good . Believes the ECT makes her feel better now. VS: T 98.2, P 79, BP 147/71, R 17, O2sat 99% on RA. Took meds as ordered. Consumed breakfast and went back to her room. Ambulates with walker, gait steady. Will continue to monitor.
[2025-04-24] MEDS: Magnesium Hydrox/Alum Hydrox 30 ML ORAL.SUSP PO (12:34)
[2025-04-24] MEDS: Sucralfate Oral Suspension 1 GM/10 ML ORAL.SUSP PO ×2 (16:16→20:17)
[2025-04-24] MEDS: OLANZapine 7.5 MG TABLET PO (20:17)
[2025-04-25] MEDS: Sucralfate Oral Suspension 1 GM/10 ML ORAL.SUSP PO ×4 (08:21→20:54)
[2025-04-25 09:21] VITALS: BP 123/71; PULSE 85; RESP 14; TEMP 36.3; O2SAT 99
--- NOTE | 2025-04-25 13:40 | HO.PSYCHPN ---
Subjective Subjective Date of Service: 04/25/25 Reason For Visit: catatonia Interim History: Patient is irritable. She was frustrated because she was calling her sister repeatedly and she wasn't answering. She says I want to get out of here, nothing is happening. She is aware she is receiving ECT's and feels they are helpful. She denies SI/Hi. Tolerating medications. Review of Systems Review of Systems Denies any shortness of breath, chest pain, headaches, dysuria, abdominal pain or discomfort, nausea, vomiting or diarrhea. Report heart burn. Yes all other systems are reviewed and are negative and Unobtainable due to mental condition Constitutional: Reports as per HPI Eyes: Reports as per HPI Reports as per HPI Cardiovascular: Reports as per HPI Respiratory: Reports as per HPI Gastrointestinal: Reports as per HPI Musculoskeletal: Reports no additional musculoskeletal complaints Skin/Breast: Reports system reviewed and no additional complaints, except as docu Reports system reviewed and no additional complaints, except as documented Psychiatric: Reports as per HPI Endocrine: Reports no additional endocrine complaints Hematologic/Lymphatic: Reports no additional hematologic/lymphatic complaints Allergic/Immunologic: Reports no additional allergic/immunologic complaints Mental Status Exam Mental Status Exam Narrative: Appearance: Casually dressed, adequate hygiene, unkempt hair Behavior: more organized, but still perseverative, anxious; Adequate eye contact intermittent mild to moderate psychomotor agitation Speech: mostly Normal volume and prosody Thought process: More organized and more goal-directed Thought content: About seeing her sister; treatment c/o reflux sx Mood: anxious Affect:anxious labile irritable dysphoric SI: None HI: None VH/AH:none Delusions: None expressed Insight/judgment: Impaired insight and judgment Memory/cog: Alert and oriented Patient Appearance: Unkempt Diagnostics Vital Signs (24Hr): Vital Signs - 24 hr 04/24/25 20:15 04/25/25 09:21 Temperature 97.7 F 97.3 F Pulse Rate 91 85 Respiratory Rate 16 14 Blood Pressure 121/67 123/71 Pulse Oximetry 98 99 Oxygen Delivery Method Room Air Room Air BMI result Body Mass Index 22.1 Labs 04/17/25 13:06 04/17/25 13:06 Imaging Radiology Impressions: ITS Impressions Head CT 04/17/25 09:49 IMPRESSION: Stable exam. No acute intracranial findings. Electronically signed by: Massiel Tucker MD 04/17/2025 10:22 AM EDT RP Medications Medications Current Medications Acetaminophen (Acetaminophen 325 Mg Tablet) 650 mg PO Q6H PRN PRN Reason: Headache/Pain, Scale 1-10 Last Admin: 04/23/25 08:38 Dose: 650 mg Al Hydroxide/Mg Hydroxide (Magnesium Hydrox/Alum Hydrox 30 Ml Oral.Susp) 30 ml PO Q6H PRN PRN Reason: Heartburn/Nausea Last Admin: 04/24/25 12:34 Dose: 30 ml Aripiprazole (Aripiprazole 2 Mg Tablet) 4 mg PO DAILY [facility] Last Admin: 04/25/25 09:27 Dose: 4 mg Calcium Carbonate (Calcium Carbonate 750 Mg Tab.Chew) 750 mg PO Q6H PRN PRN Reason: Heartburn Last Admin: 04/24/25 13:41 Dose: 750 mg Clotrimazole (Clotrimazole 1 % Cream 15 Gm Tube) 1 appl TOPICAL BID [facility]; Protocol Last Admin: 04/25/25 09:29 Dose: Not Given Docusate Sodium (Docusate Sodium 100 Mg Capsule) 100 mg PO BID PRN PRN Reason: Constipation Last Admin: 04/18/25 15:29 Dose: 100 mg Hydroxyzine HCl (Hydroxyzine Hcl 25 Mg Tablet) 25 mg PO Q6H PRN PRN Reason: mild anxiety Last Admin: 04/24/25 13:41 Dose: 25 mg Loperamide HCl (Loperamide Hcl 2 Mg Capsule) 2 mg PO Q6H PRN PRN Reason: Diarrhea Lorazepam (Lorazepam 0.5 Mg Tablet) 0.5 mg PO TID [facility] Last Admin: 04/25/25 09:27 Dose: 0.5 mg Lorazepam (Lorazepam 1 Mg Tablet) 1 mg PO Q6H PRN PRN Reason: severe anxiety Last Admin: 04/25/25 04:44 Dose: 1 mg Magnesium Hydroxide (Milk Of Magnesia 30 Ml Oral.Susp) 30 ml PO DAILY PRN PRN Reason: Constipation Last Admin: 04/21/25 17:12 Dose: 30 ml Melatonin (Melatonin 3 Mg Tablet) 6 mg PO BEDTIME [facility] Last Admin: 04/24/25 20:17 Dose: 6 mg Naloxone HCl (Naloxone Hcl 0.4 Mg/Ml Vial) 0.04 mg IVPUSH Q5M PRN PRN Reason: Excessive sedation or RR < 8 Naloxone HCl (Naloxone Hcl 0.4 Mg/Ml Vial) 0.04 mg IVPUSH Q5M PRN PRN Reason: Excessive sedation or RR < 8 Nicotine (Nicotine 21 Mg Patch.Td24) 21 mg TRANSDERMA DAILY PRN PRN Reason: nicotine craving Nicotine Polacrilex (Nicotine Polacrilex 2 Mg Gum) 2 mg BUCCAL Q2H PRN PRN Reason: Nicotine Cravings Olanzapine (Olanzapine 5 Mg Tablet) 5 mg PO BID PRN PRN Reason: agitation Last Admin: 04/22/25 13:50 Dose: 5 mg Olanzapine (Olanzapine 7.5 Mg Tablet) 7.5 mg PO BEDTIME [facility] Last Admin: 04/24/25 20:17 Dose: 7.5 mg Omeprazole (Omeprazole 20 Mg Capsule.Dr) 20 mg PO BID@0630,1630 [facility] Last Admin: 04/25/25 05:37 Dose: 20 mg Ondansetron HCl (Ondansetron Odt 4 Mg Tab.Rapdis) 4 mg TRANSLINGU Q6H PRN PRN Reason: Nausea and Vomiting Last Admin: 04/18/25 17:10 Dose: 4 mg Sucralfate (Sucralfate Oral Suspension 1 Gm/10 Ml Oral.Susp) 1 gm PO QIDACHS [facility] Last Admin: 04/25/25 12:39 Dose: 1 gm Thiamine HCl (Thiamine Hcl 100 Mg Tablet) 100 mg PO BID [facility] Last Admin: 04/25/25 09:27 Dose: 100 mg Trazodone HCl (Trazodone Hcl 50 Mg Tablet) 50 mg PO BEDTIME MRX1 PRN PRN Reason: Insomnia Last Admin: 04/22/25 20:40 Dose: 50 mg Allergies Allergies Allergy/AdvReac Type Severity Reaction Status Date / Time bee pollen Allergy Severe Anaphylaxis Verified 03/21/25 14:48 levofloxacin (From Levaquin) Allergy Severe Itching Verified 03/21/25 14:48 enoxaparin (From Lovenox) Allergy Intermediate Rash Verified 03/21/25 14:48 Seasonal Allergies Allergy Mild Runny Nose Verified 03/21/25 14:48 venlafaxine (From Effexor) Allergy Mild Constipatio Verified 03/21/25 14:48 n Penicillins Allergy Unknown Unknown Verified 03/21/25 14:48 Assessment & Plan Assessment & Plan (1) Catatonia: Status: Acute Code(s): F06.1 - Catatonic disorder due to known physiological condition Plan HPI: patient is a 69 yo female with hx history of UTI, depression, bipolar 1 depression, osteoarthritis, status post cardiac catheterization, anxiety, GERD, insomnia, osteopenia, 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 Patient has been at [facility] for approximately 3 weeks. Patient originally seen in [facility] after patient called 911. Prior to that patient had a puppy but could no longer care for the puppy and the puppy was taken away. Patient appeared to have a breakdown and was calling sister incessantly regarding the puppy and apparently called 911 out of distress. Patient was transferred to [facility] on a section 12 from [facility] for MDD, intrusive thoughts and auditory hallucinations. She was on [facility] floor from 03/20/25 to 04/14/25: Patient was admitted for bipolar disorder with catatonia moderate protein calorie malnutrition. Was treated with IV Valium, multiple ECTs, was supported with parenteral nutrition. Slowly patient had improvement, became more verbal, more participatory and diet significantly increased and was able to be weaned off parenteral nutrition. Was seen by Psychiatry who adjusted medications. Patient is still having significant acute psychiatric issues so will be discharged to inpatient psych. During hospitalization patient did have episode of acute hypoxic respiratory failure possibly due to pneumonia and completed 1 week of ertapenem. Formulation/clinical reasoning: Continue presenting with manic/psychotic/catatonia features. Just recently taking PO medication the past 2-3 days plus starting eating, advance to regular diet prior to transferred to . Hospital course: 04/14/25: Continue with ECT as scheduled Ativan 0.5mg TID PO for anxiety/catatonia. Ativan 0.5mg BID PRN For severe anxiety Increase Zypexa 2.5 BID to 5mg BID to target psychotic/bipolar symptoms. BID PRN for severe agitation 04/16: Continue current treatment regimen. Encouraged to use her walker for ambulation at all times. Verbalized understanding and agrees with the plan. 04/17 missed ECT today since she ate breakfast; also had a witnessed fall but patient said she did not hit her head, neuro checks unremarkable. Patient showing some signs of improvement and more organized in speech today. Discussed ECT with her and she seemed to accept that she is better for said okay to continuing 04/18/25: Patient slept for 7 hours, compliant with medications, remain on 1-1 for for risk. Reports passive SI, reports heartburn. Given Tums, and other PRNs for anxiety, racing thoughts, severe anxiety. Usually lies a lot of PRNs. She is negative, not future focus I do not want to be here. Nobody helping me . U/A on 04/17/25 seemed fine. No UTI. Given extra Ativan 1mg and Zyprexa 5mg x1 today for severe anxiety and racing thoughts. 04/19/25: Patient slept better, remain on 1-1. No falls. Patient is negative, feeling like she is dying and not getting better. Passive SI I do not want to live anymore. I do not want to be here. I think I am going to hell . Patient does not want to having ECT tomorrow is not helping me. Make me worse . Reports depression anxiety. Patient encouraged to eat, need lots of direction and encouragement, and assurance. However, overall, patient is better than yesterday. 04/20 still disorganized, but steadily improving; continue tx plan 04/21 Were organized tolerating ECT continue ECT course improved ambulation Plan: 04/23/25 Cont ect inc abilify prilosec for reflux 04/24/25 Pt tolerated todays ect no psychosis dysphoric irritable but much improved carafate and prilosec for gerd inc abilify 10 mg ect note reviewed dr holden 04/25: continue current management and treatment plan. Reason for continued inpatient stay Substantial Risk for: rapid decompensation Time Spent With Patient Time: Total time managing care of this patient today ____ minutes.
[2025-04-25 19:59] VITALS: BP 97/60; PULSE 77; RESP 16; TEMP 36.3; O2SAT 96
[2025-04-25] MEDS: OLANZapine 7.5 MG TABLET PO (20:55)
[2025-04-26 08:10] VITALS: BP 106/73; PULSE 92; RESP 14; TEMP 36; O2SAT 99
--- NOTE | 2025-04-26 09:40 | HO.PSYCHPN ---
Subjective Subjective Date of Service: 04/26/25 Reason For Visit: catatonia Interim History: Patient is less irritable today. Reports having some stomach problems. Carafate isn't helping. She is open to continuing ECT treatments and wondering how many she has to do. Discussed usual course of treatment. Denies SI/HI/AVH. Adherent to medications. Review of Systems Review of Systems Denies any shortness of breath, chest pain, headaches, dysuria, abdominal pain or discomfort, nausea, vomiting or diarrhea. Report heart burn. Yes all other systems are reviewed and are negative and Unobtainable due to mental condition Constitutional: Reports as per HPI Eyes: Reports as per HPI Reports as per HPI Cardiovascular: Reports as per HPI Respiratory: Reports as per HPI Gastrointestinal: Reports as per HPI Musculoskeletal: Reports no additional musculoskeletal complaints Skin/Breast: Reports system reviewed and no additional complaints, except as docu Reports system reviewed and no additional complaints, except as documented Psychiatric: Reports as per HPI Endocrine: Reports no additional endocrine complaints Hematologic/Lymphatic: Reports no additional hematologic/lymphatic complaints Allergic/Immunologic: Reports no additional allergic/immunologic complaints Mental Status Exam Mental Status Exam Narrative: Appearance: Casually dressed, adequate hygiene, unkempt hair Behavior: more organized, but still perseverative, anxious; Adequate eye contact intermittent mild to moderate psychomotor agitation Speech: mostly Normal volume and prosody Thought process: More organized and more goal-directed Thought content: About seeing her sister; treatment c/o reflux sx Mood: anxious Affect:anxious labile irritable dysphoric SI: None HI: None VH/AH:none Delusions: None expressed Insight/judgment: Impaired insight and judgment Memory/cog: Alert and oriented Patient Appearance: Unkempt Diagnostics Vital Signs (24Hr): Vital Signs - 24 hr 04/25/25 19:59 04/26/25 08:10 Temperature 97.4 F 96.8 F Pulse Rate 77 92 Respiratory Rate 16 14 Blood Pressure 97/60 106/73 Pulse Oximetry 96 99 Oxygen Delivery Method Room Air Room Air BMI result Body Mass Index 22.1 Labs 04/17/25 13:06 04/17/25 13:06 Imaging Radiology Impressions: ITS Impressions Head CT 04/17/25 09:49 IMPRESSION: Stable exam. No acute intracranial findings. Electronically signed by: Massiel Tucker MD 04/17/2025 10:22 AM EDT Medications Medications Current Medications Acetaminophen (Acetaminophen 325 Mg Tablet) 650 mg PO Q6H PRN PRN Reason: Headache/Pain, Scale 1-10 Last Admin: 04/23/25 08:38 Dose: 650 mg Al Hydroxide/Mg Hydroxide (Magnesium Hydrox/Alum Hydrox 30 Ml Oral.Susp) 30 ml PO Q6H PRN PRN Reason: Heartburn/Nausea Last Admin: 04/24/25 12:34 Dose: 30 ml Aripiprazole (Aripiprazole 2 Mg Tablet) 4 mg PO DAILY [facility] Last Admin: 04/26/25 08:20 Dose: 4 mg Calcium Carbonate (Calcium Carbonate 750 Mg Tab.Chew) 750 mg PO Q6H PRN PRN Reason: Heartburn Last Admin: 04/24/25 13:41 Dose: 750 mg Clotrimazole (Clotrimazole 1 % Cream 15 Gm Tube) 1 appl TOPICAL BID [facility]; Protocol Last Admin: 04/26/25 08:21 Dose: Not Given Docusate Sodium (Docusate Sodium 100 Mg Capsule) 100 mg PO BID PRN PRN Reason: Constipation Last Admin: 04/18/25 15:29 Dose: 100 mg Hydroxyzine HCl (Hydroxyzine Hcl 25 Mg Tablet) 25 mg PO Q6H PRN PRN Reason: mild anxiety Last Admin: 04/25/25 20:55 Dose: 25 mg Loperamide HCl (Loperamide Hcl 2 Mg Capsule) 2 mg PO Q6H PRN PRN Reason: Diarrhea Lorazepam (Lorazepam 0.5 Mg Tablet) 0.5 mg PO TID [facility] Last Admin: 04/26/25 08:20 Dose: 0.5 mg Lorazepam (Lorazepam 1 Mg Tablet) 1 mg PO Q6H PRN PRN Reason: severe anxiety Last Admin: 04/26/25 09:10 Dose: 1 mg Magnesium Hydroxide (Milk Of Magnesia 30 Ml Oral.Susp) 30 ml PO DAILY PRN PRN Reason: Constipation Last Admin: 04/21/25 17:12 Dose: 30 ml Melatonin (Melatonin 3 Mg Tablet) 6 mg PO BEDTIME [facility] Last Admin: 04/25/25 20:54 Dose: 6 mg Naloxone HCl (Naloxone Hcl 0.4 Mg/Ml Vial) 0.04 mg IVPUSH Q5M PRN PRN Reason: Excessive sedation or RR < 8 Naloxone HCl (Naloxone Hcl 0.4 Mg/Ml Vial) 0.04 mg IVPUSH Q5M PRN PRN Reason: Excessive sedation or RR < 8 Nicotine (Nicotine 21 Mg Patch.Td24) 21 mg TRANSDERMA DAILY PRN PRN Reason: nicotine craving Nicotine Polacrilex (Nicotine Polacrilex 2 Mg Gum) 2 mg BUCCAL Q2H PRN PRN Reason: Nicotine Cravings Olanzapine (Olanzapine 5 Mg Tablet) 5 mg PO BID PRN PRN Reason: agitation Last Admin: 04/22/25 13:50 Dose: 5 mg Olanzapine (Olanzapine 7.5 Mg Tablet) 7.5 mg PO BEDTIME [facility] Last Admin: 04/25/25 20:55 Dose: 7.5 mg Omeprazole (Omeprazole 20 Mg Capsule.Dr) 20 mg PO BID@0630,1630 [facility] Last Admin: 04/26/25 06:19 Dose: 20 mg Ondansetron HCl (Ondansetron Odt 4 Mg Tab.Rapdis) 4 mg TRANSLINGU Q6H PRN PRN Reason: Nausea and Vomiting Last Admin: 04/18/25 17:10 Dose: 4 mg Sucralfate (Sucralfate Oral Suspension 1 Gm/10 Ml Oral.Susp) 1 gm PO QIDACHS [facility] Last Admin: 04/25/25 20:54 Dose: 1 gm Thiamine HCl (Thiamine Hcl 100 Mg Tablet) 100 mg PO BID [facility] Last Admin: 04/26/25 08:20 Dose: 100 mg Trazodone HCl (Trazodone Hcl 50 Mg Tablet) 50 mg PO BEDTIME MRX1 PRN PRN Reason: Insomnia Last Admin: 04/22/25 20:40 Dose: 50 mg Allergies Allergies Allergy/AdvReac Type Severity Reaction Status Date / Time bee pollen Allergy Severe Anaphylaxis Verified 03/21/25 14:48 levofloxacin (From Levaquin) Allergy Severe Itching Verified 03/21/25 14:48 enoxaparin (From Lovenox) Allergy Intermediate Rash Verified 03/21/25 14:48 Seasonal Allergies Allergy Mild Runny Nose Verified 03/21/25 14:48 venlafaxine (From Effexor) Allergy Mild Constipatio Verified 03/21/25 14:48 n Penicillins Allergy Unknown Unknown Verified 03/21/25 14:48 Assessment & Plan Assessment & Plan (1) Catatonia: Status: Acute Code(s): F06.1 - Catatonic disorder due to known physiological condition Plan HPI: patient is a 69 yo female with hx history of UTI, depression, bipolar 1 depression, osteoarthritis, status post cardiac catheterization, anxiety, GERD, insomnia, osteopenia, 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 Patient has been at [facility] for approximately 3 weeks. Patient originally seen in [facility] after patient called 911. Prior to that patient had a puppy but could no longer care for the puppy and the puppy was taken away. Patient appeared to have a breakdown and was calling sister incessantly regarding the puppy and apparently called 911 out of distress. Patient was transferred to [facility] on a section 12 from [facility] for MDD, intrusive thoughts and auditory hallucinations. She was on [facility] floor from 03/20/25 to 04/14/25: Patient was admitted for bipolar disorder with catatonia moderate protein calorie malnutrition. Was treated with IV Valium, multiple ECTs, was supported with parenteral nutrition. Slowly patient had improvement, became more verbal, more participatory and diet significantly increased and was able to be weaned off parenteral nutrition. Was seen by Psychiatry who adjusted medications. Patient is still having significant acute psychiatric issues so will be discharged to inpatient psych. During hospitalization patient did have episode of acute hypoxic respiratory failure possibly due to pneumonia and completed 1 week of ertapenem. Formulation/clinical reasoning: Continue presenting with manic/psychotic/catatonia features. Just recently taking PO medication the past 2-3 days plus starting eating, advance to regular diet prior to transferred to . Hospital course: 04/14/25: Continue with ECT as scheduled Ativan 0.5mg TID PO for anxiety/catatonia. Ativan 0.5mg BID PRN For severe anxiety Increase Zypexa 2.5 BID to 5mg BID to target psychotic/bipolar symptoms. BID PRN for severe agitation 04/16: Continue current treatment regimen. Encouraged to use her walker for ambulation at all times. Verbalized understanding and agrees with the plan. 04/17 missed ECT today since she ate breakfast; also had a witnessed fall but patient said she did not hit her head, neuro checks unremarkable. Patient showing some signs of improvement and more organized in speech today. Discussed ECT with her and she seemed to accept that she is better for said okay to continuing 04/18/25: Patient slept for 7 hours, compliant with medications, remain on 1-1 for for risk. Reports passive SI, reports heartburn. Given Tums, and other PRNs for anxiety, racing thoughts, severe anxiety. Usually lies a lot of PRNs. She is negative, not future focus I do not want to be here. Nobody helping me . U/A on 04/17/25 seemed fine. No UTI. Given extra Ativan 1mg and Zyprexa 5mg x1 today for severe anxiety and racing thoughts. 04/19/25: Patient slept better, remain on 1-1. No falls. Patient is negative, feeling like she is dying and not getting better. Passive SI I do not want to live anymore. I do not want to be here. I think I am going to hell . Patient does not want to having ECT tomorrow is not helping me. Make me worse . Reports depression anxiety. Patient encouraged to eat, need lots of direction and encouragement, and assurance. However, overall, patient is better than yesterday. 04/20 still disorganized, but steadily improving; continue tx plan 04/21 Were organized tolerating ECT continue ECT course improved ambulation Plan: 04/23/25 Cont ect inc abilify prilosec for reflux 04/24/25 Pt tolerated todays ect no psychosis dysphoric irritable but much improved carafate and prilosec for gerd inc abilify 10 mg ect note reviewed dr holden 04/25: continue current management and treatment plan. 04/26: Start Prilosec 20 mg daily. Otherwise continue current management and treatment plan. Reason for continued inpatient stay Substantial Risk for: inability to function and rapid decompensation Time Spent With Patient Time: Total time managing care of this patient today ____ minutes.
[2025-04-26] MEDS: Sucralfate Oral Suspension 1 GM/10 ML ORAL.SUSP PO ×3 (10:55→21:49)
[2025-04-26 20:00] VITALS: BP 115/65; PULSE 96; RESP 16; TEMP 36.1; O2SAT 95
[2025-04-26] MEDS: OLANZapine 7.5 MG TABLET PO (21:50)
[2025-04-27] VITALS (10 sets, daily range): BP systolic 100–155; BP diastolic 59–96; PULSE 74–96; RESP 16; TEMP 36.3–37.4; O2SAT 93–97
--- NOTE | 2025-04-27 06:54 | HO.ANESPROP2 ---
[facility] Active Problems Active Problems: All Active Problems Bipolar II, mixed, severe with psychotic behavior (Acute) Catatonia (Acute) Delirium due to another medical condition (Acute) Delirium (Acute) Arthritis of right knee (Acute) Bipolar 1 disorder, depressed, severe (Acute) Elevated troponin (Acute) Chest discomfort (Acute) S/P cardiac catheterization (Acute) Varus deformity of knee (Acute) Osteoarthritis of left knee (Acute) Anxiety (Acute) GERD (gastroesophageal reflux disease) (Acute) Insomnia (Acute) Osteopenia (Acute) Murmur, cardiac (Acute) Status post total knee replacement, left (Acute) Acute deep vein thrombosis (DVT) of left tibial vein (Chronic) Past Medical History Medical History Delirium due to another medical condition History of skin cancer Hx of bladder problems VITO (generalized anxiety disorder) Murmur, cardiac Hx of thyroid nodule Osteopenia Hx of skin cancer, basal cell Seasonal allergies Insomnia Constipation GERD (gastroesophageal reflux disease) Anxiety History of electroconvulsive therapy Bipolar 1 disorder Functional capacity: independent ambulation Family History Family History Mother Basal cell carcinoma (BCC) in situ of skin Osteoporosis Hyperlipidemia Father CAD (coronary artery disease) Alcoholism Sister Osteoporosis Depression Brother Cancer of tongue Cancer of skin Family history of problems with anesthesia: No Surgical History Surgical History Hx of colonoscopy H/O elbow surgery History of back surgery History of Problems with Anesthesia: No Social History Social History Household Members: None Household Members Other:: brought in from [facility] Housing: Apartment Are you a primary senior care specialist to a significant other at home: No Do you presently have visiting nurse or other home services: Yes Comment: 5 minute Patient Tobacco Use Status: Never used Tobacco Tobacco use type: Cigarette Years Smoked: 30+, now vapes e-Cigarette/Vaping Use: Currently Using Second Hand Smoke Exposure: No Substance Use Type: Crack/Cocaine Currently Displaying Signs/Symptoms of Drug Intoxication Withdrawal: No Have you been hit, kicked, punched, or otherwise hurt by someone within the past year? If so, by whom?: No Do you feel safe in your current relationship?: No Are you made to feel afraid or neglected: No Spiritual Healthcare Practices: No Religion Healthcare Practices: No Cultural Healthcare Practices: No Advance Directives: Yes Advance Directives on File: Yes Advance Directives Date on File: 06/12/24 Do you have thoughts of harming others: None Do you have a plan to hurt others: No Plan Recently lost weight without trying: Yes How much weight loss: Unsure Eating poorly because of decreased appetite: No Nutrition screen score: 4 Nutrition Risks: No Nutritional Risk Patient : No : No Poor oral hygiene: No service: No Current occupational status: unemployed and retired 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 Sexual orientation: Straight/Heterosexual Meds Allergies Allergy/AdvReac Type Severity Reaction Status Date / Time bee pollen Allergy Severe Anaphylaxis Verified 03/21/25 14:48 levofloxacin (From Levaquin) Allergy Severe Itching Verified 03/21/25 14:48 enoxaparin (From Lovenox) Allergy Intermediate Rash Verified 03/21/25 14:48 Seasonal Allergies Allergy Mild Runny Nose Verified 03/21/25 14:48 venlafaxine (From Effexor) Allergy Mild Constipatio Verified 03/21/25 14:48 n Penicillins Allergy Unknown Unknown Verified 03/21/25 14:48 Active Medications: Current Medications Acetaminophen (Acetaminophen 325 Mg Tablet) 650 mg PO Q6H PRN PRN Reason: Headache/Pain, Scale 1-10 Last Admin: 04/23/25 08:38 Dose: 650 mg Al Hydroxide/Mg Hydroxide (Magnesium Hydrox/Alum Hydrox 30 Ml Oral.Susp) 30 ml PO Q6H PRN PRN Reason: Heartburn/Nausea Last Admin: 04/24/25 12:34 Dose: 30 ml Aripiprazole (Aripiprazole 2 Mg Tablet) 4 mg PO DAILY [facility] Last Admin: 04/26/25 08:20 Dose: 4 mg Calcium Carbonate (Calcium Carbonate 750 Mg Tab.Chew) 750 mg PO Q6H PRN PRN Reason: Heartburn Last Admin: 04/26/25 13:48 Dose: 750 mg Clotrimazole (Clotrimazole 1 % Cream 15 Gm Tube) 1 appl TOPICAL BID [facility]; Protocol Last Admin: 04/26/25 21:55 Dose: Not Given Docusate Sodium (Docusate Sodium 100 Mg Capsule) 100 mg PO BID PRN PRN Reason: Constipation Last Admin: 04/18/25 15:29 Dose: 100 mg Hydroxyzine HCl (Hydroxyzine Hcl 25 Mg Tablet) 25 mg PO Q6H PRN PRN Reason: mild anxiety Last Admin: 04/25/25 20:55 Dose: 25 mg Loperamide HCl (Loperamide Hcl 2 Mg Capsule) 2 mg PO Q6H PRN PRN Reason: Diarrhea Lorazepam (Lorazepam 0.5 Mg Tablet) 0.5 mg PO TID [facility] Last Admin: 04/26/25 21:50 Dose: 0.5 mg Lorazepam (Lorazepam 1 Mg Tablet) 1 mg PO Q6H PRN PRN Reason: severe anxiety Last Admin: 04/26/25 16:28 Dose: 1 mg Magnesium Hydroxide (Milk Of Magnesia 30 Ml Oral.Susp) 30 ml PO DAILY PRN PRN Reason: Constipation Last Admin: 04/21/25 17:12 Dose: 30 ml Melatonin (Melatonin 3 Mg Tablet) 6 mg PO BEDTIME [facility] Last Admin: 04/26/25 21:50 Dose: 6 mg Naloxone HCl (Naloxone Hcl 0.4 Mg/Ml Vial) 0.04 mg IVPUSH Q5M PRN PRN Reason: Excessive sedation or RR < 8 Naloxone HCl (Naloxone Hcl 0.4 Mg/Ml Vial) 0.04 mg IVPUSH Q5M PRN PRN Reason: Excessive sedation or RR < 8 Nicotine (Nicotine 21 Mg Patch.Td24) 21 mg TRANSDERMA DAILY PRN PRN Reason: nicotine craving Nicotine Polacrilex (Nicotine Polacrilex 2 Mg Gum) 2 mg BUCCAL Q2H PRN PRN Reason: Nicotine Cravings Olanzapine (Olanzapine 5 Mg Tablet) 5 mg PO BID PRN PRN Reason: agitation Last Admin: 04/22/25 13:50 Dose: 5 mg Olanzapine (Olanzapine 7.5 Mg Tablet) 7.5 mg PO BEDTIME [facility] Last Admin: 04/26/25 21:50 Dose: 7.5 mg Omeprazole (Omeprazole 20 Mg Capsule.Dr) 20 mg PO BID@0630,1630 [facility] Last Admin: 04/27/25 05:56 Dose: Not Given Ondansetron HCl (Ondansetron Odt 4 Mg Tab.Rapdis) 4 mg TRANSLINGU Q6H PRN PRN Reason: Nausea and Vomiting Last Admin: 04/18/25 17:10 Dose: 4 mg Sucralfate (Sucralfate Oral Suspension 1 Gm/10 Ml Oral.Susp) 1 gm PO QIDACHS [facility] Last Admin: 04/26/25 21:49 Dose: 1 gm Thiamine HCl (Thiamine Hcl 100 Mg Tablet) 100 mg PO BID [facility] Last Admin: 04/26/25 21:50 Dose: 100 mg Trazodone HCl (Trazodone Hcl 50 Mg Tablet) 50 mg PO BEDTIME MRX1 PRN PRN Reason: Insomnia Last Admin: 04/22/25 20:40 Dose: 50 mg Home Medications ?Medication ?Instructions ?Recorded ?Confirmed ?Last Taken ?Type docusate sodium 100 mg capsule 1 cap PO BID PRN Constipation 03/22/25 04/14/25 Unknown History loperamide 2 mg tablet 2 mg PO Q6H PRN Diarrhea 03/22/25 04/14/25 Unknown History lorazepam 0.5 mg tablet 0.5 mg PO TID 03/22/25 04/14/25 Unknown History melatonin 3 mg tablet 3 mg PO BEDTIME PRN Sleep 03/22/25 04/14/25 Unknown History ondansetron HCl 4 mg tablet 4 mg PO Q6H PRN Nausea And Vomiting 03/22/25 04/14/25 Unknown History pantoprazole 40 mg tablet,delayed 40 mg PO DAILY@0630 03/22/25 04/14/25 Unknown History release Exam Height,Weight and Vital Signs: Height 5 ft 7 in Weight 64.013 kg Last Vital Signs Temp 98.1 F 04/27/25 06:40 Pulse 86 04/27/25 06:40 Resp 16 04/27/25 06:40 BP 110/73 04/27/25 06:40 Pulse Ox 97 04/27/25 06:40 O2 Del Method Room Air 04/27/25 06:40 O2 Flow Rate 2 04/22/25 08:00 Pertinent Lab Results Pertinent Lab Results: Laboratory Tests 04/16/25 04/17/25 04/17/25 12:17 07:09 13:06 WBC 7.1 RBC 3.81 L Hgb 11.5 L Hct 35.7 L MCV 93.7 MCH 30.2 MCHC 32.2 RDW 15.1 Plt Count 476 H D MPV 8.4 L Immature Gran % (Auto) 1.0 H Neut % (Auto) 57.0 Lymph % (Auto) 31.7 [place] % (Auto) 8.6 Eos % (Auto) 1.0 Baso % (Auto) 0.7 Lymph # (Auto) 2.2 [place] # (Auto) 0.6 Eos # (Auto) 0.1 Baso # (Auto) 0.1 Abs Immat Gran (auto) 0.07 H Absolute Neuts (auto) 4.0 Absolute Nucleated RBC 0.000 Nucleated RBC % (auto) 0.0 Sodium Cancelled 143 Potassium Cancelled 4.2 Chloride Cancelled 111 H Carbon Dioxide Cancelled 25 Anion Gap Cancelled 11 L BUN Cancelled 13 Creatinine Cancelled 0.61 Estim Creat Clear Calc Cancelled 87.0 Estimated GFR Cancelled > 60 POC Glucose 99 Random Glucose Cancelled 78 Estimat Average Glucose Cancelled Hemoglobin A1c % Cancelled Calcium Cancelled 9.2 Total Bilirubin Cancelled AST Cancelled ALT Cancelled Alkaline Phosphatase Cancelled Troponin I High Sens Total Protein Cancelled Albumin Cancelled Triglycerides Cancelled Cholesterol Cancelled LDL Cholesterol, Calc Cancelled HDL Cholesterol Cancelled Vitamin B12 741 Folate 9.6 TSH Cancelled Free T4 Cancelled Urine Color Urine Appearance Urine pH Ur Specific [place] Urine Protein Urine Glucose (UA) Urine Ketones Urine Blood Urine Nitrite Ur Leukocyte Esterase Urine RBC Urine WBC Ur Squamous Epith Cells Calcium Oxalate Crystal Other Crystals Urine Bacteria Hyaline Casts 04/17/25 04/20/25 15:10 15:39 WBC RBC Hgb Hct MCV MCH MCHC RDW Plt Count MPV Immature Gran % (Auto) Neut % (Auto) Lymph % (Auto) [place] % (Auto) Eos % (Auto) Baso % (Auto) Lymph # (Auto) [place] # (Auto) Eos # (Auto) Baso # (Auto) Abs Immat Gran (auto) Absolute Neuts (auto) Absolute Nucleated RBC Nucleated RBC % (auto) Sodium Potassium Chloride Carbon Dioxide Anion Gap BUN Creatinine Estim Creat Clear Calc Estimated GFR POC Glucose Random Glucose Estimat Average Glucose Hemoglobin A1c % Calcium Total Bilirubin AST ALT Alkaline Phosphatase Troponin I High Sens 3.2 Total Protein Albumin Triglycerides Cholesterol LDL Cholesterol, Calc HDL Cholesterol Vitamin B12 Folate TSH Free T4 Urine Color Yellow Urine Appearance Clear Urine pH 6.0 Ur Specific [place] 1.025 Urine Protein Negative Urine Glucose (UA) Negative Urine Ketones Negative Urine Blood Negative Urine Nitrite Negative Ur Leukocyte Esterase Trace H Urine RBC 0-2 Urine WBC 0-5 Ur Squamous Epith Cells 3-5 Calcium Oxalate Crystal Present Other Crystals Present Urine Bacteria None Seen Hyaline Casts 0-2 Airway Mallampati Class: II (edentulous on top) TM Dist: >3cm Neck ROM: Full Heart: rrr Lungs: cta Assessment and Plan Assessment Anesthesia Assessment: Anesthesia Plan Discussed and Chart Reviewed Final Anesthetic Review Family History of Problems with Anesthesia: No History of Problems with Anesthesia: No NPO: Yes ASA Class: III Final Preanesthetic Review: No Changes in Pt Med Stat, Meds/Allgs Chart Reviewed and Consent Obtained/Reviewed Patient Risk: Intermediate Procedure Risk: Intermediate Anesthetic Plan Anesthetic Plan: GA Disposition: Standard PACU
[2025-04-27] MEDS: Lactated Ringers 500 ML 20 ML IVCONT (07:00)
--- NOTE | 2025-04-27 07:38 | MHC.SHP ---
Pre-Procedural Eval Section A - 24 Hr Update-Section A only Date of Service: 04/27/25 The patient is an INPATIENT: Yes Changes since office visit: No Cold of Flu in the past 2 weeks, No New Medical Problems, No Changes in Medication and No Patient answered all questions The patient has been examined within 24 hours of the surgical procedure. The History & Physical has been completed within 30 days and I have reviewed it.: Yes Section B - Complete if H&P > 30 days Chief Complaint: catatonia Allergies: Allergies Allergy/AdvReac Type Severity Reaction Status Date / Time bee pollen Allergy Severe Anaphylaxis Verified 03/21/25 14:48 levofloxacin (From Levaquin) Allergy Severe Itching Verified 03/21/25 14:48 enoxaparin (From Lovenox) Allergy Intermediate Rash Verified 03/21/25 14:48 Seasonal Allergies Allergy Mild Runny Nose Verified 03/21/25 14:48 venlafaxine (From Effexor) Allergy Mild Constipatio Verified 03/21/25 14:48 n Penicillins Allergy Unknown Unknown Verified 03/21/25 14:48 Plan Diagnosis/Plan: Unchanged I have reviewed the history and physical and performed a pertinent physical examination on my patient. No changes have occurred unless specified. Time Spent With Patient Time: Total time managing care of this patient today ____ minutes.
--- NOTE | 2025-04-27 07:40 | HO.ECTPROC ---
ECT Procedure Note Diagnosis/Treatment Date of Service: 04/27/25 Diagnosis: Bipolar disorder Previous ECT Date: 04/24/25 Current Treatment Number: 8 Treatment: Series Interval Clinical Notes: Pt not catatonic or psychotic remains anxious labile Time: Total time managing care of this patient today _30___ minutes. ECT Settings Device: THYMATRON DGx Electrode Placement: Bifrontal Program/Pulse Width: 0.50 Energy Percent: 100 Seizure Duration By EEG (in seconds): 23 Medications Administration General Anesthetic: Etomidate (16 mg) Muscle Relaxant: Succinylcholine (100 mg) Ancillary Medications Miscillaneous Medications: Propofol (30 mg) Airway Management Airway Management: Bag Mask Ventilation Treatment Recommendations Electrode Placement: Rt temporal/ Lt frontal Notes: change to rtlf Pt Tolerated Procedure w/o Issue: Yes
[2025-04-27] MEDS: Sucralfate Oral Suspension 1 GM/10 ML ORAL.SUSP PO ×4 (09:02→20:17)
--- NOTE | 2025-04-27 09:06 | HO.ECTPROC ---
ECT Procedure Note Diagnosis/Treatment Date of Service: 04/27/25 Diagnosis: Bipolar disorder Previous ECT Date: 04/24/25 Time: Total time managing care of this patient today ____ minutes. ECT Settings Device: THYMATRON DGx
[2025-04-27] MEDS: Magnesium Hydrox/Alum Hydrox 30 ML ORAL.SUSP PO (14:00)
--- NOTE | 2025-04-27 22:44 | P.PNPSI_ITS ---
Subjective Subjective Date of Service: 04/27/25 Reason For Visit: catatonia Subjective Notes: Conditional Voluntary Healthcare Proxy: Yes Interim History: Patient is somewhat irritable and labile. No psychotic concerns. Has been tolerating Vraylar in the milieu but limited group engagement Mental Status Exam Mental Status Exam Narrative: Appearance: Casually dressed, adequate hygiene, unkempt hair Behavior: more organized, but still perseverative, anxious; Adequate eye contact intermittent mild to moderate psychomotor agitation Speech: mostly Normal volume and prosody Thought process: More organized and more goal-directed Thought content: treatment c/o reflux sx Mood: Apprehensive Affect:anxious labile irritable dysphoric SI: None HI: None VH/AH:none Delusions: None expressed Insight/judgment: Impaired insight and judgment Memory/cog: Alert and oriented Patient Appearance: Unkempt Diagnostics Vital Signs (24Hr): Vital Signs - 24 hr 04/27/25 05:57 04/27/25 05:59 04/27/25 06:40 Temperature 97.6 F 97.6 F 98.1 F Pulse Rate 90 90 86 Respiratory Rate 16 16 16 Blood Pressure 124/73 124/73 110/73 Pulse Oximetry 97 97 97 Oxygen Delivery Method Room Air Room Air Oxygen Flow Rate 04/27/25 07:58 04/27/25 08:03 04/27/25 08:08 Temperature 97.9 F Pulse Rate 74 96 90 Respiratory Rate 16 16 16 Blood Pressure 110/59 L 122/96 H 119/74 Pulse Oximetry 93 96 96 Oxygen Delivery Method Nasal Cannula with ETCO2 Nasal Cannula with ETCO2 Nasal Cannula with ETCO2 Oxygen Flow Rate 3 3 3 04/27/25 08:13 04/27/25 08:28 04/27/25 09:06 Temperature 99.4 F 98.5 F Pulse Rate 93 89 89 Respiratory Rate 16 16 16 Blood Pressure 125/68 150/76 H 155/71 H Pulse Oximetry 96 96 97 Oxygen Delivery Method Nasal Cannula with ETCO2 Room Air Room Air Oxygen Flow Rate 3 04/27/25 20:00 Temperature 97.4 F Pulse Rate 85 Respiratory Rate 16 Blood Pressure 100/60 Pulse Oximetry 97 Oxygen Delivery Method Room Air Oxygen Flow Rate BMI result Body Mass Index 22.1 Labs 04/17/25 13:06 04/17/25 13:06 Imaging Radiology Impressions: ITS Impressions Head CT 04/17/25 09:49 IMPRESSION: Stable exam. No acute intracranial findings. Electronically signed by: Massiel Tucker MD 04/17/2025 10:22 AM EDT RP Medications Medications Current Medications Acetaminophen (Acetaminophen 325 Mg Tablet) 650 mg PO Q6H PRN PRN Reason: Headache/Pain, Scale 1-10 Last Admin: 04/23/25 08:38 Dose: 650 mg Al Hydroxide/Mg Hydroxide (Magnesium Hydrox/Alum Hydrox 30 Ml Oral.Susp) 30 ml PO Q6H PRN PRN Reason: Heartburn/Nausea Last Admin: 04/27/25 14:00 Dose: 30 ml Calcium Carbonate (Calcium Carbonate 750 Mg Tab.Chew) 750 mg PO Q6H PRN PRN Reason: Heartburn Last Admin: 04/27/25 12:31 Dose: 750 mg Cariprazine (Cariprazine Hcl 1.5 Mg Capsule) 1.5 mg PO DAILY [facility] Last Admin: 04/27/25 11:02 Dose: 1.5 mg Clotrimazole (Clotrimazole 1 % Cream 15 Gm Tube) 1 appl TOPICAL BID [facility]; Protocol Last Admin: 04/27/25 20:20 Dose: Not Given Docusate Sodium (Docusate Sodium 100 Mg Capsule) 100 mg PO BID PRN PRN Reason: Constipation Last Admin: 04/18/25 15:29 Dose: 100 mg Hydroxyzine HCl (Hydroxyzine Hcl 25 Mg Tablet) 25 mg PO Q6H PRN PRN Reason: mild anxiety Last Admin: 04/25/25 20:55 Dose: 25 mg Loperamide HCl (Loperamide Hcl 2 Mg Capsule) 2 mg PO Q6H PRN PRN Reason: Diarrhea Lorazepam (Lorazepam 0.5 Mg Tablet) 0.5 mg PO TID GRECIA Last Admin: 04/27/25 20:18 Dose: 0.5 mg Lorazepam (Lorazepam 1 Mg Tablet) 1 mg PO Q6H PRN PRN Reason: severe anxiety Last Admin: 04/27/25 14:00 Dose: 1 mg Magnesium Hydroxide (Milk Of Magnesia 30 Ml Oral.Susp) 30 ml PO DAILY PRN PRN Reason: Constipation Last Admin: 04/21/25 17:12 Dose: 30 ml Melatonin (Melatonin 3 Mg Tablet) 6 mg PO BEDTIME [facility] Last Admin: 04/27/25 20:18 Dose: 6 mg Naloxone HCl (Naloxone Hcl 0.4 Mg/Ml Vial) 0.04 mg IVPUSH Q5M PRN PRN Reason: Excessive sedation or RR < 8 Nicotine (Nicotine 21 Mg Patch.Td24) 21 mg TRANSDERMA DAILY PRN PRN Reason: nicotine craving Nicotine Polacrilex (Nicotine Polacrilex 2 Mg Gum) 2 mg BUCCAL Q2H PRN PRN Reason: Nicotine Cravings Olanzapine (Olanzapine 5 Mg Tablet) 5 mg PO BID PRN PRN Reason: agitation Last Admin: 04/22/25 13:50 Dose: 5 mg Olanzapine (Olanzapine 5 Mg Tablet) 5 mg PO BEDTIME [facility] Last Admin: 04/27/25 20:18 Dose: 5 mg Omeprazole (Omeprazole 40 Mg Capsule.Dr) 40 mg PO BID@0630,1630 [facility] Last Admin: 04/27/25 16:33 Dose: 40 mg Ondansetron HCl (Ondansetron Odt 4 Mg Tab.Rapdis) 4 mg TRANSLINGU Q6H PRN PRN Reason: Nausea and Vomiting Last Admin: 04/18/25 17:10 Dose: 4 mg Sucralfate (Sucralfate Oral Suspension 1 Gm/10 Ml Oral.Susp) 1 gm PO QIDACHS [facility] Last Admin: 04/27/25 20:17 Dose: 1 gm Thiamine HCl (Thiamine Hcl 100 Mg Tablet) 100 mg PO BID [facility] Last Admin: 04/27/25 20:21 Dose: 100 mg Trazodone HCl (Trazodone Hcl 50 Mg Tablet) 50 mg PO BEDTIME MRX1 PRN PRN Reason: Insomnia Last Admin: 04/22/25 20:40 Dose: 50 mg Allergies Allergies Allergy/AdvReac Type Severity Reaction Status Date / Time bee pollen Allergy Severe Anaphylaxis Verified 03/21/25 14:48 levofloxacin (From Levaquin) Allergy Severe Itching Verified 03/21/25 14:48 enoxaparin (From Lovenox) Allergy Intermediate Rash Verified 03/21/25 14:48 Seasonal Allergies Allergy Mild Runny Nose Verified 03/21/25 14:48 venlafaxine (From Effexor) Allergy Mild Constipatio Verified 03/21/25 14:48 n Penicillins Allergy Unknown Unknown Verified 03/21/25 14:48 Assessment & Plan Assessment & Plan (1) Catatonia: Status: Acute Code(s): F06.1 - Catatonic disorder due to known physiological condition (2) Bipolar 1 disorder, depressed, severe: Status: Acute Code(s): F31.4 - Bipolar disorder, current episode depressed, severe, without psychotic features Plan HPI: patient is a 69 yo female with hx history of UTI, depression, bipolar 1 depression, osteoarthritis, status post cardiac catheterization, anxiety, GERD, insomnia, osteopenia, 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 Patient has been at [facility] for approximately 3 weeks. Patient originally seen in [facility] after patient called 911. Prior to that patient had a puppy but could no longer care for the puppy and the puppy was taken away. Patient appeared to have a breakdown and was calling sister incessantly regarding the puppy and apparently called 911 out of distress. Patient was transferred to [facility] on a section 12 from [facility] for MDD, intrusive thoughts and auditory hallucinations. She was on [facility] floor from 03/20/25 to 04/14/25: Patient was admitted for bipolar disorder with catatonia moderate protein calorie malnutrition. Was treated with IV Valium, multiple ECTs, was supported with parenteral nutrition. Slowly patient had improvement, became more verbal, more participatory and diet significantly increased and was able to be weaned off parenteral nutrition. Was seen by Psychiatry who adjusted medications. Patient is still having significant acute psychiatric issues so will be discharged to inpatient psych. During hospitalization patient did have episode of acute hypoxic respiratory failure possibly due to pneumonia and completed 1 week of ertapenem. Formulation/clinical reasoning: Continue presenting with manic/psychotic/catatonia features. Just recently taking PO medication the past 2-3 days plus starting eating, advance to regular diet prior to transferred to . Hospital course: 04/14/25: Continue with ECT as scheduled Ativan 0.5mg TID PO for anxiety/catatonia. Ativan 0.5mg BID PRN For severe anxiety Increase Zypexa 2.5 BID to 5mg BID to target psychotic/bipolar symptoms. BID PRN for severe agitation 04/16: Continue current treatment regimen. Encouraged to use her walker for ambulation at all times. Verbalized understanding and agrees with the plan. 04/17 missed ECT today since she ate breakfast; also had a witnessed fall but patient said she did not hit her head, neuro checks unremarkable. Patient showing some signs of improvement and more organized in speech today. Discussed ECT with her and she seemed to accept that she is better for said okay to continuing 04/18/25: Patient slept for 7 hours, compliant with medications, remain on 1-1 for for risk. Reports passive SI, reports heartburn. Given Tums, and other PRNs for anxiety, racing thoughts, severe anxiety. Usually lies a lot of PRNs. She is negative, not future focus I do not want to be here. Nobody helping me . U/A on 04/17/25 seemed fine. No UTI. Given extra Ativan 1mg and Zyprexa 5mg x1 today for severe anxiety and racing thoughts. 04/19/25: Patient slept better, remain on 1-1. No falls. Patient is negative, feeling like she is dying and not getting better. Passive SI I do not want to live anymore. I do not want to be here. I think I am going to hell . Patient does not want to having ECT tomorrow is not helping me. Make me worse . Reports depression anxiety. Patient encouraged to eat, need lots of direction and encouragement, and assurance. However, overall, patient is better than yesterday. 04/20 still disorganized, but steadily improving; continue tx plan 04/21 Were organized tolerating ECT continue ECT course improved ambulation Plan: 04/23/25 Cont ect inc abilify prilosec for reflux 04/24/25 Pt tolerated todays ect no psychosis dysphoric irritable but much improved carafate and prilosec for gerd inc abilify 10 mg ect note reviewed dr holden 04/25: continue current management and treatment plan. 04/26: Start Prilosec 20 mg daily. Otherwise continue current management and treatment plan. 04/27/[address] increase Prilosec to 20 b.i.d. secondary to reflux Abilify discontinued secondary to irritability akathisia Vraylar started Reason for continued inpatient stay Substantial Risk for: harm to self, rapid decompensation and med/psych decompensation Time Spent With Patient Time: Total time managing care of this patient today ____ minutes.
[2025-04-28 08:00] VITALS: BP 112/63; PULSE 95; RESP 15; TEMP 36.8; O2SAT 98
[2025-04-28] MEDS: Sucralfate Oral Suspension 1 GM/10 ML ORAL.SUSP PO ×4 (08:20→20:16)
[2025-04-28 20:00] VITALS: BP 124/68; PULSE 86; RESP 16; TEMP 36.6; O2SAT 95
[2025-04-28] MEDS: Clotrimazole 1 % Cream 15 GM TUBE 1 APPL TOPICAL (20:15)
[2025-04-29 08:05] VITALS: BP 115/65; PULSE 89; RESP 18; TEMP 36.8; O2SAT 98
[2025-04-29] MEDS: Sucralfate Oral Suspension 1 GM/10 ML ORAL.SUSP PO ×4 (08:39→20:47)
[2025-04-29] MEDS: Clotrimazole 1 % Cream 15 GM TUBE 1 APPL TOPICAL (08:39)
--- NOTE | 2025-04-29 08:50 | HO.PSYCHPN ---
Subjective Subjective Date of Service: 04/28/25 Reason For Visit: catatonia Subjective Notes: Conditional Voluntary Healthcare Proxy: Yes Interim History: Pt clearer less labile out in the [place] less reactive still has c/o gerd but improved has changed to vraylar Review of Systems Acute medical concerns: No Medical Review of Systems: unchanged Mental Status Exam Mental Status Exam Narrative: Appearance: Casually dressed, adequate hygiene Behavior: more organized Adequate eye contact intermittent mild to moderate psychomotor agitation Speech: mostly Normal volume and prosody Thought process: More organized and more goal-directed Thought content: treatment c/o reflux sx able to discuss her daily habits more Mood: Apprehensive Affect:anxious labile irritable dysphoric SI: None HI: None VH/AH:none Delusions: None expressed Insight/judgment: Impaired insight and judgment Memory/cog: Alert and oriented Patient Appearance: Unkempt Diagnostics Vital Signs (24Hr): Vital Signs - 24 hr 04/28/25 20:00 Temperature 97.8 F Pulse Rate 86 Respiratory Rate 16 Blood Pressure 124/68 Pulse Oximetry 95 Oxygen Delivery Method Room Air BMI result Body Mass Index 22.1 Labs 04/17/25 13:06 04/17/25 13:06 Imaging Radiology Impressions: ITS Impressions Head CT 04/17/25 09:49 IMPRESSION: Stable exam. No acute intracranial findings. Electronically signed by: Massiel Tucker MD 04/17/2025 10:22 AM EDT Medications Medications Current Medications Acetaminophen (Acetaminophen 325 Mg Tablet) 650 mg PO Q6H PRN PRN Reason: Headache/Pain, Scale 1-10 Last Admin: 04/23/25 08:38 Dose: 650 mg Al Hydroxide/Mg Hydroxide (Magnesium Hydrox/Alum Hydrox 30 Ml Oral.Susp) 30 ml PO Q6H PRN PRN Reason: Heartburn/Nausea Last Admin: 04/27/25 14:00 Dose: 30 ml Calcium Carbonate (Calcium Carbonate 750 Mg Tab.Chew) 750 mg PO Q6H PRN PRN Reason: Heartburn Last Admin: 04/27/25 12:31 Dose: 750 mg Cariprazine (Cariprazine Hcl 3 Mg Capsule) 3 mg PO DAILY [facility] Last Admin: 04/29/25 08:39 Dose: 3 mg Clotrimazole (Clotrimazole 1 % Cream 15 Gm Tube) 1 appl TOPICAL BID [facility]; Protocol Last Admin: 04/29/25 08:39 Dose: 1 appl Docusate Sodium (Docusate Sodium 100 Mg Capsule) 100 mg PO BID PRN PRN Reason: Constipation Last Admin: 04/18/25 15:29 Dose: 100 mg Hydroxyzine HCl (Hydroxyzine Hcl 25 Mg Tablet) 25 mg PO Q6H PRN PRN Reason: mild anxiety Last Admin: 04/25/25 20:55 Dose: 25 mg Hydroxyzine HCl (Hydroxyzine Hcl 25 Mg Tablet) 25 mg PO BEDTIME [facility] Last Admin: 04/28/25 20:17 Dose: 25 mg Loperamide HCl (Loperamide Hcl 2 Mg Capsule) 2 mg PO Q6H PRN PRN Reason: Diarrhea Lorazepam (Lorazepam 0.5 Mg Tablet) 0.5 mg PO TID [facility] Last Admin: 04/29/25 08:39 Dose: 0.5 mg Lorazepam (Lorazepam 1 Mg Tablet) 1 mg PO Q6H PRN PRN Reason: severe anxiety Last Admin: 04/27/25 14:00 Dose: 1 mg Magnesium Hydroxide (Milk Of Magnesia 30 Ml Oral.Susp) 30 ml PO DAILY PRN PRN Reason: Constipation Last Admin: 04/21/25 17:12 Dose: 30 ml Melatonin (Melatonin 3 Mg Tablet) 6 mg PO BEDTIME [facility] Last Admin: 04/28/25 20:17 Dose: 6 mg Naloxone HCl (Naloxone Hcl 0.4 Mg/Ml Vial) 0.04 mg IVPUSH Q5M PRN PRN Reason: Excessive sedation or RR < 8 Nicotine (Nicotine 21 Mg Patch.Td24) 21 mg TRANSDERMA DAILY PRN PRN Reason: nicotine craving Nicotine Polacrilex (Nicotine Polacrilex 2 Mg Gum) 2 mg BUCCAL Q2H PRN PRN Reason: Nicotine Cravings Olanzapine (Olanzapine 5 Mg Tablet) 5 mg PO BID PRN PRN Reason: agitation Last Admin: 04/22/25 13:50 Dose: 5 mg Olanzapine (Olanzapine 5 Mg Tablet) 5 mg PO BEDTIME [facility] Last Admin: 04/28/25 20:17 Dose: 5 mg Omeprazole (Omeprazole 40 Mg Capsule.Dr) 40 mg PO BID@0630,1630 [facility] Last Admin: 04/29/25 06:18 Dose: 40 mg Ondansetron HCl (Ondansetron Odt 4 Mg Tab.Rapdis) 4 mg TRANSLINGU Q6H PRN PRN Reason: Nausea and Vomiting Last Admin: 04/18/25 17:10 Dose: 4 mg Sucralfate (Sucralfate Oral Suspension 1 Gm/10 Ml Oral.Susp) 1 gm PO QIDACHS [facility] Last Admin: 04/29/25 08:39 Dose: 1 gm Thiamine HCl (Thiamine Hcl 100 Mg Tablet) 100 mg PO BID [facility] Last Admin: 04/29/25 08:39 Dose: 100 mg Allergies Allergies Allergy/AdvReac Type Severity Reaction Status Date / Time bee pollen Allergy Severe Anaphylaxis Verified 03/21/25 14:48 levofloxacin (From Levaquin) Allergy Severe Itching Verified 03/21/25 14:48 enoxaparin (From Lovenox) Allergy Intermediate Rash Verified 03/21/25 14:48 Seasonal Allergies Allergy Mild Runny Nose Verified 03/21/25 14:48 venlafaxine (From Effexor) Allergy Mild Constipatio Verified 03/21/25 14:48 n Penicillins Allergy Unknown Unknown Verified 03/21/25 14:48 Assessment & Plan Assessment & Plan (1) Catatonia: Status: Acute Code(s): F06.1 - Catatonic disorder due to known physiological condition (2) Bipolar 1 disorder, depressed, severe: Status: Acute Code(s): F31.4 - Bipolar disorder, current episode depressed, severe, without psychotic features Plan HPI: patient is a 69 yo female with hx history of UTI, depression, bipolar 1 depression, osteoarthritis, status post cardiac catheterization, anxiety, GERD, insomnia, osteopenia, 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 Patient has been at [facility] for approximately 3 weeks. Patient originally seen in [facility] after patient called 911. Prior to that patient had a puppy but could no longer care for the puppy and the puppy was taken away. Patient appeared to have a breakdown and was calling sister incessantly regarding the puppy and apparently called 911 out of distress. Patient was transferred to [facility] on a section 12 from [facility] for MDD, intrusive thoughts and auditory hallucinations. She was on [place] floor from 03/20/25 to 04/14/25: Patient was admitted for bipolar disorder with catatonia moderate protein calorie malnutrition. Was treated with IV Valium, multiple ECTs, was supported with parenteral nutrition. Slowly patient had improvement, became more verbal, more participatory and diet significantly increased and was able to be weaned off parenteral nutrition. Was seen by Psychiatry who adjusted medications. Patient is still having significant acute psychiatric issues so will be discharged to inpatient psych. During hospitalization patient did have episode of acute hypoxic respiratory failure possibly due to pneumonia and completed 1 week of ertapenem. Formulation/clinical reasoning: Continue presenting with manic/psychotic/catatonia features. Just recently taking PO medication the past 2-3 days plus starting eating, advance to regular diet prior to transferred to S[facility]. Hospital course: 04/14/25: Continue with ECT -- as scheduled Ativan 0.5mg TID PO for anxiety/catatonia. Ativan 0.5mg BID PRN For severe anxiety Increase Zypexa 2.5 BID to 5mg BID to target psychotic/bipolar symptoms. BID PRN for severe agitation 04/16: Continue current treatment regimen. Encouraged to use her walker for ambulation at all times. Verbalized understanding and agrees with the plan. 04/17 missed ECT today since she ate breakfast; also had a witnessed fall but patient said she did not hit her head, neuro checks unremarkable. Patient showing some signs of improvement and more organized in speech today. Discussed ECT with her and she seemed to accept that she is better for said okay to continuing 04/18/25: Patient slept for 7 hours, compliant with medications, remain on 1-1 for for risk. Reports passive SI, reports heartburn. Given Tums, and other PRNs for anxiety, racing thoughts, severe anxiety. Usually lies a lot of PRNs. She is negative, not future focus I do not want to be here. Nobody helping me . U/A on 04/17/25 seemed fine. No UTI. Given extra Ativan 1mg and Zyprexa 5mg x1 today for severe anxiety and racing thoughts. 04/19/25: Patient slept better, remain on 1-1. No falls. Patient is negative, feeling like she is dying and not getting better. Passive SI I do not want to live anymore. I do not want to be here. I think I am going to hell . Patient does not want to having ECT tomorrow is not helping me. Make me worse . Reports depression anxiety. Patient encouraged to eat, need lots of direction and encouragement, and assurance. However, overall, patient is better than yesterday. 04/20 still disorganized, but steadily improving; continue tx plan 04/21 Were organized tolerating ECT continue ECT course improved ambulation Plan: 04/23/25 Cont ect inc abilify prilosec for reflux 04/24/25 Pt tolerated todays ect no psychosis dysphoric irritable but much improved carafate and prilosec for gerd inc abilify 10 mg ect note reviewed dr holden 04/25: continue current management and treatment plan. 04/26: Start Prilosec 20 mg daily. Otherwise continue current management and treatment plan. 04/27/[address] increase Prilosec to 20 b.i.d. secondary to reflux Abilify discontinued secondary to irritability akathisia Vraylar started 04/28/25 Pt improving less labile on vraylar inc to 3 mg if lucrecia can inc further taper ect Patient educated on: diagnosis and medication risk/benefits Informed Consent: further education needed Reason for continued inpatient stay Substantial Risk for: inability to function and med/psych decompensation Time Spent With Patient Time: Total time managing care of this patient today 60____ minutes.
[2025-04-29 20:00] VITALS: BP 92/55; PULSE 86; RESP 16; TEMP 36.5; O2SAT 95
--- NOTE | 2025-04-29 22:28 | HO.PSYCHPN ---
Subjective Subjective Date of Service: 04/29/25 Reason For Visit: catatonia Subjective Notes: Conditional Voluntary Healthcare Proxy: Yes Interim History: Patient seen chart reviewed treatment plan discussed with nursing staff and social work Patient is somewhat irritable ruminating on where she is going to live discharge back home and has unfortunately frequently relapsed. Patient's social in the unit limited engagement in activities often negativistic Medication Compliance: Yes Mental Status Exam Mental Status Exam Narrative: Appearance: Casually dressed, adequate hygiene Behavior: more organized Adequate eye contact intermittent mild to moderate psychomotor agitation Speech: mostly Normal volume and prosody Thought process: More organized and more goal-directed Thought content: Focused on discharge setting Mood: Apprehensive Affect:anxious labile irritable dysphoric SI: None HI: None VH/AH:none Delusions: None expressed Insight/judgment: Impaired insight and judgment Memory/cog: Alert and oriented Patient Appearance: Unkempt Diagnostics Vital Signs (24Hr): Vital Signs - 24 hr 04/29/25 08:05 Temperature 98.2 F Pulse Rate 89 Respiratory Rate 18 Blood Pressure 115/65 Pulse Oximetry 98 Oxygen Delivery Method Room Air BMI result Body Mass Index 22.1 Labs 04/17/25 13:06 04/17/25 13:06 Imaging Radiology Impressions: ITS Impressions Head CT 04/17/25 09:49 IMPRESSION: Stable exam. No acute intracranial findings. Electronically signed by: Massiel Tucker MD 04/17/2025 10:22 AM EDT Medications Medications Current Medications Acetaminophen (Acetaminophen 325 Mg Tablet) 650 mg PO Q6H PRN PRN Reason: Headache/Pain, Scale 1-10 Last Admin: 04/23/25 08:38 Dose: 650 mg Al Hydroxide/Mg Hydroxide (Magnesium Hydrox/Alum Hydrox 30 Ml Oral.Susp) 30 ml PO Q6H PRN PRN Reason: Heartburn/Nausea Last Admin: 04/27/25 14:00 Dose: 30 ml Calcium Carbonate (Calcium Carbonate 750 Mg Tab.Chew) 750 mg PO Q6H PRN PRN Reason: Heartburn Last Admin: 04/27/25 12:31 Dose: 750 mg Cariprazine (Cariprazine Hcl 1.5 Mg Capsule) 4.5 mg PO DAILY [facility] Clotrimazole (Clotrimazole 1 % Cream 15 Gm Tube) 1 appl TOPICAL BID [facility]; Protocol Last Admin: 04/29/25 21:35 Dose: Not Given Docusate Sodium (Docusate Sodium 100 Mg Capsule) 100 mg PO BID PRN PRN Reason: Constipation Last Admin: 04/18/25 15:29 Dose: 100 mg Hydroxyzine HCl (Hydroxyzine Hcl 25 Mg Tablet) 25 mg PO Q6H PRN PRN Reason: mild anxiety Last Admin: 04/29/25 21:59 Dose: 25 mg Hydroxyzine HCl (Hydroxyzine Hcl 25 Mg Tablet) 25 mg PO BEDTIME [facility] Last Admin: 04/29/25 20:47 Dose: 25 mg Loperamide HCl (Loperamide Hcl 2 Mg Capsule) 2 mg PO Q6H PRN PRN Reason: Diarrhea Lorazepam (Lorazepam 0.5 Mg Tablet) 0.5 mg PO TID [facility] Last Admin: 04/29/25 20:47 Dose: 0.5 mg Lorazepam (Lorazepam 1 Mg Tablet) 1 mg PO Q6H PRN PRN Reason: severe anxiety Last Admin: 04/29/25 12:41 Dose: 1 mg Magnesium Hydroxide (Milk Of Magnesia 30 Ml Oral.Susp) 30 ml PO DAILY PRN PRN Reason: Constipation Last Admin: 04/21/25 17:12 Dose: 30 ml Melatonin (Melatonin 3 Mg Tablet) 6 mg PO BEDTIME [facility] Last Admin: 04/29/25 20:47 Dose: 6 mg Naloxone HCl (Naloxone Hcl 0.4 Mg/Ml Vial) 0.04 mg IVPUSH Q5M PRN PRN Reason: Excessive sedation or RR < 8 Nicotine (Nicotine 21 Mg Patch.Td24) 21 mg TRANSDERMA DAILY PRN PRN Reason: nicotine craving Nicotine Polacrilex (Nicotine Polacrilex 2 Mg Gum) 2 mg BUCCAL Q2H PRN PRN Reason: Nicotine Cravings Olanzapine (Olanzapine 5 Mg Tablet) 5 mg PO BID PRN PRN Reason: agitation Last Admin: 04/22/25 13:50 Dose: 5 mg Olanzapine (Olanzapine 5 Mg Tablet) 5 mg PO BEDTIME [facility] Last Admin: 04/29/25 20:47 Dose: 5 mg Omeprazole (Omeprazole 40 Mg Capsule.Dr) 40 mg PO BID@0630,1630 [facility] Last Admin: 04/29/25 16:13 Dose: 40 mg Ondansetron HCl (Ondansetron Odt 4 Mg Tab.Rapdis) 4 mg TRANSLINGU Q6H PRN PRN Reason: Nausea and Vomiting Last Admin: 04/18/25 17:10 Dose: 4 mg Sucralfate (Sucralfate Oral Suspension 1 Gm/10 Ml Oral.Susp) 1 gm PO QIDACHS [facility] Last Admin: 04/29/25 20:47 Dose: 1 gm Thiamine HCl (Thiamine Hcl 100 Mg Tablet) 100 mg PO BID [facility] Last Admin: 04/29/25 20:47 Dose: 100 mg Allergies Allergies Allergy/AdvReac Type Severity Reaction Status Date / Time bee pollen Allergy Severe Anaphylaxis Verified 03/21/25 14:48 levofloxacin (From Levaquin) Allergy Severe Itching Verified 03/21/25 14:48 enoxaparin (From Lovenox) Allergy Intermediate Rash Verified 03/21/25 14:48 Seasonal Allergies Allergy Mild Runny Nose Verified 03/21/25 14:48 venlafaxine (From Effexor) Allergy Mild Constipatio Verified 03/21/25 14:48 n Penicillins Allergy Unknown Unknown Verified 03/21/25 14:48 Assessment & Plan Assessment & Plan (1) Catatonia: Status: Acute Code(s): F06.1 - Catatonic disorder due to known physiological condition (2) Bipolar 1 disorder, depressed, severe: Status: Acute Code(s): F31.4 - Bipolar disorder, current episode depressed, severe, without psychotic features Plan HPI: patient is a 69 yo female with hx history of UTI, depression, bipolar 1 depression, osteoarthritis, status post cardiac catheterization, anxiety, GERD, insomnia, osteopenia, 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 Patient has been at [facility] for approximately 3 weeks. Patient originally seen in [facility] after patient called 911. Prior to that patient had a puppy but could no longer care for the puppy and the puppy was taken away. Patient appeared to have a breakdown and was calling sister incessantly regarding the puppy and apparently called 911 out of distress. Patient was transferred to [facility] on a section 12 from [facility] for MDD, intrusive thoughts and auditory hallucinations. She was on [facility] floor from 03/20/25 to 04/14/25: Patient was admitted for bipolar disorder with catatonia moderate protein calorie malnutrition. Was treated with IV Valium, multiple ECTs, was supported with parenteral nutrition. Slowly patient had improvement, became more verbal, more participatory and diet significantly increased and was able to be weaned off parenteral nutrition. Was seen by Psychiatry who adjusted medications. Patient is still having significant acute psychiatric issues so will be discharged to inpatient psych. During hospitalization patient did have episode of acute hypoxic respiratory failure possibly due to pneumonia and completed 1 week of ertapenem. Formulation/clinical reasoning: Continue presenting with manic/psychotic/catatonia features. Just recently taking PO medication the past 2-3 days plus starting eating, advance to regular diet prior to transferred to S1. Hospital course: 04/14/25: Continue with ECT -- as scheduled Ativan 0.5mg TID PO for anxiety/catatonia. Ativan 0.5mg BID PRN For severe anxiety Increase Zypexa 2.5 BID to 5mg BID to target psychotic/bipolar symptoms. BID PRN for severe agitation 04/16: Continue current treatment regimen. Encouraged to use her walker for ambulation at all times. Verbalized understanding and agrees with the plan. 04/17 missed ECT today since she ate breakfast; also had a witnessed fall but patient said she did not hit her head, neuro checks unremarkable. Patient showing some signs of improvement and more organized in speech today. Discussed ECT with her and she seemed to accept that she is better for said okay to continuing 04/18/25: Patient slept for 7 hours, compliant with medications, remain on 1-1 for for risk. Reports passive SI, reports heartburn. Given Tums, and other PRNs for anxiety, racing thoughts, severe anxiety. Usually lies a lot of PRNs. She is negative, not future focus I do not want to be here. Nobody helping me . U/A on 04/17/25 seemed fine. No UTI. Given extra Ativan 1mg and Zyprexa 5mg x1 today for severe anxiety and racing thoughts. 04/19/25: Patient slept better, remain on 1-1. No falls. Patient is negative, feeling like she is dying and not getting better. Passive SI I do not want to live anymore. I do not want to be here. I think I am going to hell . Patient does not want to having ECT tomorrow is not helping me. Make me worse . Reports depression anxiety. Patient encouraged to eat, need lots of direction and encouragement, and assurance. However, overall, patient is better than yesterday. 04/20 still disorganized, but steadily improving; continue tx plan 04/21 Were organized tolerating ECT continue ECT course improved ambulation Plan: 04/23/25 Cont ect inc abilify prilosec for reflux 04/24/25 Pt tolerated todays ect no psychosis dysphoric irritable but much improved carafate and prilosec for gerd inc abilify 10 mg ect note reviewed dr holden 04/25: continue current management and treatment plan. 04/26: Start Prilosec 20 mg daily. Otherwise continue current management and treatment plan. 04/27/[address] increase Prilosec to 20 b.i.d. secondary to reflux Abilify discontinued secondary to irritability akathisia Vraylar started 04/28/25 Pt improving less labile on vraylar inc to 3 mg if lucrecia can inc further taper ect Reason for continued inpatient stay Substantial Risk for: harm to self and rapid decompensation Time Spent With Patient Time: Total time managing care of this patient today ____ minutes.
[2025-04-30] MEDS: Sucralfate Oral Suspension 1 GM/10 ML ORAL.SUSP PO ×4 (06:19→20:10)
[2025-04-30 08:00] VITALS: BP 112/66; PULSE 89; RESP 18; TEMP 36.8; O2SAT 97
[2025-04-30] MEDS: Clotrimazole 1 % Cream 15 GM TUBE 1 APPL TOPICAL (08:27)
[2025-04-30 12:09] VITALS: BMI 23.2
[2025-04-30 20:00] VITALS: BP 118/62; PULSE 89; RESP 18; TEMP 37; O2SAT 99
--- NOTE | 2025-04-30 23:29 | P.PNPSI_ITS ---
Subjective Subjective Date of Service: 04/30/25 Reason For Visit: catatonia /bipolar depression Subjective Notes: Conditional Voluntary Healthcare Proxy: Yes Interim History: Patient seen chart reviewed case reviewed in treatment planning and with nursing and social work staff. Patient is scheduled for ECT in the morning had been trying to taper patient often somewhat irritable and complaining in the milieu has been focused on whether she can return back to her apartment Medication Compliance: Yes Mental Status Exam Mental Status Exam Narrative: Appearance: Casually dressed, adequate hygiene Behavior: more organized Adequate eye contact intermittent mild to moderate psychomotor agitation Speech: mostly Normal volume and prosody Thought process: More organized and more goal-directed perseverative Thought content: Focused on discharge setting whether she can return home worried about being placed in a different setting Mood: Apprehensive anxious Affect:anxious labile irritable dysphoric SI: None HI: None VH/AH:none Delusions: None expressed Insight/judgment: Impaired insight and judgment Memory/cog: Alert and oriented Patient Appearance: Unkempt Diagnostics Vital Signs (24Hr): Vital Signs - 24 hr 04/30/25 08:00 04/30/25 20:00 Temperature 98.2 F 98.6 F Pulse Rate 89 89 Respiratory Rate 18 18 Blood Pressure 112/66 118/62 Pulse Oximetry 97 99 Oxygen Delivery Method Room Air Room Air BMI result Body Mass Index 23.2 Labs 04/17/25 13:06 04/17/25 13:06 Imaging Radiology Impressions: ITS Impressions Head CT 04/17/25 09:49 IMPRESSION: Stable exam. No acute intracranial findings. Electronically signed by: Massiel Tucker MD 04/17/2025 10:22 AM EDT Medications Medications Current Medications Acetaminophen (Acetaminophen 325 Mg Tablet) 650 mg PO Q6H PRN PRN Reason: Headache/Pain, Scale 1-10 Last Admin: 04/23/25 08:38 Dose: 650 mg Al Hydroxide/Mg Hydroxide (Magnesium Hydrox/Alum Hydrox 30 Ml Oral.Susp) 30 ml PO Q6H PRN PRN Reason: Heartburn/Nausea Last Admin: 04/27/25 14:00 Dose: 30 ml Calcium Carbonate (Calcium Carbonate 750 Mg Tab.Chew) 750 mg PO Q6H PRN PRN Reason: Heartburn Last Admin: 04/27/25 12:31 Dose: 750 mg Cariprazine (Cariprazine Hcl 1.5 Mg Capsule) 4.5 mg PO DAILY [facility] Last Admin: 04/30/25 08:25 Dose: 4.5 mg Clotrimazole (Clotrimazole 1 % Cream 15 Gm Tube) 1 appl TOPICAL BID [facility]; Protocol Last Admin: 04/30/25 20:49 Dose: Not Given Docusate Sodium (Docusate Sodium 100 Mg Capsule) 100 mg PO BID PRN PRN Reason: Constipation Last Admin: 04/18/25 15:29 Dose: 100 mg Hydroxyzine HCl (Hydroxyzine Hcl 25 Mg Tablet) 25 mg PO Q6H PRN PRN Reason: mild anxiety Last Admin: 04/29/25 21:59 Dose: 25 mg Hydroxyzine HCl (Hydroxyzine Hcl 25 Mg Tablet) 25 mg PO BEDTIME [facility] Last Admin: 04/30/25 20:09 Dose: 25 mg Loperamide HCl (Loperamide Hcl 2 Mg Capsule) 2 mg PO Q6H PRN PRN Reason: Diarrhea Lorazepam (Lorazepam 1 Mg Tablet) 1 mg PO Q6H PRN PRN Reason: severe anxiety Last Admin: 04/30/25 12:46 Dose: 1 mg Lorazepam (Lorazepam 0.5 Mg Tablet) 0.5 mg PO BID [facility] Last Admin: 04/30/25 20:09 Dose: 0.5 mg Magnesium Hydroxide (Milk Of Magnesia 30 Ml Oral.Susp) 30 ml PO DAILY PRN PRN Reason: Constipation Last Admin: 04/21/25 17:12 Dose: 30 ml Melatonin (Melatonin 3 Mg Tablet) 6 mg PO BEDTIME [facility] Last Admin: 04/30/25 20:10 Dose: 6 mg Naloxone HCl (Naloxone Hcl 0.4 Mg/Ml Vial) 0.04 mg IVPUSH Q5M PRN PRN Reason: Excessive sedation or RR < 8 Nicotine (Nicotine 21 Mg Patch.Td24) 21 mg TRANSDERMA DAILY PRN PRN Reason: nicotine craving Nicotine Polacrilex (Nicotine Polacrilex 2 Mg Gum) 2 mg BUCCAL Q2H PRN PRN Reason: Nicotine Cravings Olanzapine (Olanzapine 5 Mg Tablet) 5 mg PO BID PRN PRN Reason: agitation Last Admin: 04/22/25 13:50 Dose: 5 mg Olanzapine (Olanzapine 5 Mg Tablet) 5 mg PO BEDTIME [facility] Last Admin: 04/30/25 20:09 Dose: 5 mg Omeprazole (Omeprazole 40 Mg Capsule.Dr) 40 mg PO BID@0630,1630 [facility] Last Admin: 04/30/25 15:57 Dose: 40 mg Ondansetron HCl (Ondansetron Odt 4 Mg Tab.Rapdis) 4 mg TRANSLINGU Q6H PRN PRN Reason: Nausea and Vomiting Last Admin: 04/18/25 17:10 Dose: 4 mg Sucralfate (Sucralfate Oral Suspension 1 Gm/10 Ml Oral.Susp) 1 gm PO QIDACHS [facility] Last Admin: 04/30/25 20:10 Dose: 1 gm Thiamine HCl (Thiamine Hcl 100 Mg Tablet) 100 mg PO BID [facility] Last Admin: 04/30/25 20:09 Dose: 100 mg Allergies Allergies Allergy/AdvReac Type Severity Reaction Status Date / Time bee pollen Allergy Severe Anaphylaxis Verified 03/21/25 14:48 levofloxacin (From Levaquin) Allergy Severe Itching Verified 03/21/25 14:48 enoxaparin (From Lovenox) Allergy Intermediate Rash Verified 03/21/25 14:48 Seasonal Allergies Allergy Mild Runny Nose Verified 03/21/25 14:48 venlafaxine (From Effexor) Allergy Mild Constipatio Verified 03/21/25 14:48 n Penicillins Allergy Unknown Unknown Verified 03/21/25 14:48 Assessment & Plan Assessment & Plan (1) Bipolar 1 disorder, depressed, severe: Status: Acute Code(s): F31.4 - Bipolar disorder, current episode depressed, severe, without psychotic features (2) Catatonia: Status: Acute Code(s): F06.1 - Catatonic disorder due to known physiological condition Plan HPI: patient is a 69 yo female with hx history of UTI, depression, bipolar 1 depression, osteoarthritis, status post cardiac catheterization, anxiety, GERD, insomnia, osteopenia, 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 Patient has been at [facility] for approximately 3 weeks. Patient originally seen in [place] after patient called 911. Prior to that patient had a puppy but could no longer care for the puppy and the puppy was taken away. Patient appeared to have a breakdown and was calling sister incessantly regarding the puppy and apparently called 911 out of distress. Patient was transferred to [facility] on a section 12 from [facility] for MDD, intrusive thoughts and auditory hallucinations. She was on Med floor from 03/20/25 to 04/14/25: Patient was admitted for bipolar disorder with catatonia moderate protein calorie malnutrition. Was treated with IV Valium, multiple ECTs, was supported with parenteral nutrition. Slowly patient had improvement, became more verbal, more participatory and diet significantly increased and was able to be weaned off parenteral nutrition. Was seen by Psychiatry who adjusted medications. Patient is still having significant acute psychiatric issues so will be discharged to inpatient psych. During hospitalization patient did have episode of acute hypoxic respiratory failure possibly due to pneumonia and completed 1 week of ertapenem. Formulation/clinical reasoning: Continue presenting with manic/psychotic/catatonia features. Just recently taking PO medication the past 2-3 days plus starting eating, advance to regular diet prior to transferred to . Hospital course: 04/14/25: Continue with ECT -- as scheduled Ativan 0.5mg TID PO for anxiety/catatonia. Ativan 0.5mg BID PRN For severe anxiety Increase Zypexa 2.5 BID to 5mg BID to target psychotic/bipolar symptoms. BID PRN for severe agitation 04/16: Continue current treatment regimen. Encouraged to use her walker for ambulation at all times. Verbalized understanding and agrees with the plan. 04/17 missed ECT today since she ate breakfast; also had a witnessed fall but patient said she did not hit her head, neuro checks unremarkable. Patient showing some signs of improvement and more organized in speech today. Discussed ECT with her and she seemed to accept that she is better for said okay to continuing 04/18/25: Patient slept for 7 hours, compliant with medications, remain on 1-1 for for risk. Reports passive SI, reports heartburn. Given Tums, and other PRNs for anxiety, racing thoughts, severe anxiety. Usually lies a lot of PRNs. She is negative, not future focus I do not want to be here. Nobody helping me . U/A on 04/17/25 seemed fine. No UTI. Given extra Ativan 1mg and Zyprexa 5mg x1 today for severe anxiety and racing thoughts. 04/19/25: Patient slept better, remain on 1-1. No falls. Patient is negative, feeling like she is dying and not getting better. Passive SI I do not want to live anymore. I do not want to be here. I think I am going to hell . Patient does not want to having ECT tomorrow is not helping me. Make me worse . Reports depression anxiety. Patient encouraged to eat, need lots of direction and encouragement, and assurance. However, overall, patient is better than yesterday. 04/20 still disorganized, but steadily improving; continue tx plan 04/21 Were organized tolerating ECT continue ECT course improved ambulation Plan: 04/23/25 Cont ect inc abilify prilosec for reflux 04/24/25 Pt tolerated todays ect no psychosis dysphoric irritable but much improved carafate and prilosec for gerd inc abilify 10 mg ect note reviewed dr holden 04/25: continue current management and treatment plan. 04/26: Start Prilosec 20 mg daily. Otherwise continue current management and treatment plan. 04/27/[address] increase Prilosec to 20 b.i.d. secondary to reflux Abilify discontinued secondary to irritability akathisia Vraylar started 04/28/25 Pt improving less labile on vraylar inc to 3 mg if lucrecia can inc further taper ect 04/30/2025 Patient denied being her meds a to admission does state that at a daily visiting nurse. Was on Seroquel prior to admission. Patient on Vraylar seems appropriate for bipolar mixed states depression. Still complains of anxiety has irritability consider Depakote ECT for the morning Patient educated on: diagnosis and medication risk/benefits Informed Consent: further education needed Reason for continued inpatient stay Substantial Risk for: harm to self and rapid decompensation Time Spent With Patient Time: Total time managing care of this patient today _30___ minutes.
[2025-05-01] VITALS (9 sets, daily range): BP systolic 107–146; BP diastolic 67–77; PULSE 74–96; RESP 12–24; TEMP 36.2–36.7; O2SAT 93–99
--- NOTE | 2025-05-01 06:45 | HO.ANESPROP2 ---
[facility] Active Problems Active Problems: All Active Problems Bipolar II, mixed, severe with psychotic behavior (Acute) Catatonia (Acute) Delirium due to another medical condition (Acute) Delirium (Acute) Arthritis of right knee (Acute) Bipolar 1 disorder, depressed, severe (Acute) Elevated troponin (Acute) Chest discomfort (Acute) S/P cardiac catheterization (Acute) Varus deformity of knee (Acute) Osteoarthritis of left knee (Acute) Anxiety (Acute) GERD (gastroesophageal reflux disease) (Acute) Insomnia (Acute) Osteopenia (Acute) Murmur, cardiac (Acute) Status post total knee replacement, left (Acute) Acute deep vein thrombosis (DVT) of left tibial vein (Chronic) Past Medical History Medical History Delirium due to another medical condition History of skin cancer Hx of bladder problems VITO (generalized anxiety disorder) Murmur, cardiac Hx of thyroid nodule Osteopenia Hx of skin cancer, basal cell Seasonal allergies Insomnia Constipation GERD (gastroesophageal reflux disease) Anxiety History of electroconvulsive therapy Bipolar 1 disorder Functional capacity: independent ambulation Family History Family History Mother Basal cell carcinoma (BCC) in situ of skin Osteoporosis Hyperlipidemia Father CAD (coronary artery disease) Alcoholism Sister Osteoporosis Depression Brother Cancer of tongue Cancer of skin Family history of problems with anesthesia: No Surgical History Surgical History Hx of colonoscopy H/O elbow surgery History of back surgery History of Problems with Anesthesia: No Social History Social History Household Members: None Household Members Other:: brought in from [facility] Housing: Apartment Are you a primary rn transitional care to a significant other at home: No Do you presently have visiting nurse or other home services: Yes Comment: 5 minute Patient Tobacco Use Status: Never used Tobacco Tobacco use type: Cigarette Years Smoked: 30+, now vapes e-Cigarette/Vaping Use: Currently Using Second Hand Smoke Exposure: No Substance Use Type: Crack/Cocaine Currently Displaying Signs/Symptoms of Drug Intoxication Withdrawal: No Have you been hit, kicked, punched, or otherwise hurt by someone within the past year? If so, by whom?: No Do you feel safe in your current relationship?: No Are you made to feel afraid or neglected: No Spiritual Healthcare Practices: No Mandaen Healthcare Practices: No Cultural Healthcare Practices: No Advance Directives: Yes Advance Directives on File: Yes Advance Directives Date on File: 06/12/24 Do you have thoughts of harming others: None Do you have a plan to hurt others: No Plan Recently lost weight without trying: Yes How much weight loss: Unsure Eating poorly because of decreased appetite: No Nutrition screen score: 4 Nutrition Risks: No Nutritional Risk Patient : No : No Poor oral hygiene: No service: No Current occupational status: unemployed and retired 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 Sexual orientation: Straight/Heterosexual Meds Allergies Allergy/AdvReac Type Severity Reaction Status Date / Time bee pollen Allergy Severe Anaphylaxis Verified 03/21/25 14:48 levofloxacin (From Levaquin) Allergy Severe Itching Verified 03/21/25 14:48 enoxaparin (From Lovenox) Allergy Intermediate Rash Verified 03/21/25 14:48 Seasonal Allergies Allergy Mild Runny Nose Verified 03/21/25 14:48 venlafaxine (From Effexor) Allergy Mild Constipatio Verified 03/21/25 14:48 n Penicillins Allergy Unknown Unknown Verified 03/21/25 14:48 Active Medications: Current Medications Acetaminophen (Acetaminophen 325 Mg Tablet) 650 mg PO Q6H PRN PRN Reason: Headache/Pain, Scale 1-10 Last Admin: 04/23/25 08:38 Dose: 650 mg Al Hydroxide/Mg Hydroxide (Magnesium Hydrox/Alum Hydrox 30 Ml Oral.Susp) 30 ml PO Q6H PRN PRN Reason: Heartburn/Nausea Last Admin: 04/27/25 14:00 Dose: 30 ml Calcium Carbonate (Calcium Carbonate 750 Mg Tab.Chew) 750 mg PO Q6H PRN PRN Reason: Heartburn Last Admin: 04/27/25 12:31 Dose: 750 mg Cariprazine (Cariprazine Hcl 1.5 Mg Capsule) 4.5 mg PO DAILY GRECIA Last Admin: 04/30/25 08:25 Dose: 4.5 mg Clotrimazole (Clotrimazole 1 % Cream 15 Gm Tube) 1 appl TOPICAL BID GRECIA; Protocol Last Admin: 04/30/25 20:49 Dose: Not Given Docusate Sodium (Docusate Sodium 100 Mg Capsule) 100 mg PO BID PRN PRN Reason: Constipation Last Admin: 04/18/25 15:29 Dose: 100 mg Hydroxyzine HCl (Hydroxyzine Hcl 25 Mg Tablet) 25 mg PO Q6H PRN PRN Reason: mild anxiety Last Admin: 04/29/25 21:59 Dose: 25 mg Hydroxyzine HCl (Hydroxyzine Hcl 25 Mg Tablet) 25 mg PO BEDTIME GRECIA Last Admin: 04/30/25 20:09 Dose: 25 mg Loperamide HCl (Loperamide Hcl 2 Mg Capsule) 2 mg PO Q6H PRN PRN Reason: Diarrhea Lorazepam (Lorazepam 1 Mg Tablet) 1 mg PO Q6H PRN PRN Reason: severe anxiety Last Admin: 04/30/25 12:46 Dose: 1 mg Lorazepam (Lorazepam 0.5 Mg Tablet) 0.5 mg PO BID [facility] Last Admin: 04/30/25 20:09 Dose: 0.5 mg Magnesium Hydroxide (Milk Of Magnesia 30 Ml Oral.Susp) 30 ml PO DAILY PRN PRN Reason: Constipation Last Admin: 04/21/25 17:12 Dose: 30 ml Melatonin (Melatonin 3 Mg Tablet) 6 mg PO BEDTIME [facility] Last Admin: 04/30/25 20:10 Dose: 6 mg Naloxone HCl (Naloxone Hcl 0.4 Mg/Ml Vial) 0.04 mg IVPUSH Q5M PRN PRN Reason: Excessive sedation or RR < 8 Nicotine (Nicotine 21 Mg Patch.Td24) 21 mg TRANSDERMA DAILY PRN PRN Reason: nicotine craving Nicotine Polacrilex (Nicotine Polacrilex 2 Mg Gum) 2 mg BUCCAL Q2H PRN PRN Reason: Nicotine Cravings Olanzapine (Olanzapine 5 Mg Tablet) 5 mg PO BID PRN PRN Reason: agitation Last Admin: 04/22/25 13:50 Dose: 5 mg Olanzapine (Olanzapine 5 Mg Tablet) 5 mg PO BEDTIME [facility] Last Admin: 04/30/25 20:09 Dose: 5 mg Omeprazole (Omeprazole 40 Mg Capsule.Dr) 40 mg PO BID@0630,1630 [facility] Last Admin: 05/01/25 06:39 Dose: Not Given Ondansetron HCl (Ondansetron Odt 4 Mg Tab.Rapdis) 4 mg TRANSLINGU Q6H PRN PRN Reason: Nausea and Vomiting Last Admin: 04/18/25 17:10 Dose: 4 mg Sucralfate (Sucralfate Oral Suspension 1 Gm/10 Ml Oral.Susp) 1 gm PO QIDACHS [facility] Last Admin: 04/30/25 20:10 Dose: 1 gm Thiamine HCl (Thiamine Hcl 100 Mg Tablet) 100 mg PO BID [facility] Last Admin: 04/30/25 20:09 Dose: 100 mg Home Medications ?Medication ?Instructions ?Recorded ?Confirmed ?Last Taken ?Type docusate sodium 100 mg capsule 1 cap PO BID PRN Constipation 03/22/25 04/14/25 Unknown History loperamide 2 mg tablet 2 mg PO Q6H PRN Diarrhea 03/22/25 04/14/25 Unknown History lorazepam 0.5 mg tablet 0.5 mg PO TID 03/22/25 04/14/25 Unknown History melatonin 3 mg tablet 3 mg PO BEDTIME PRN Sleep 03/22/25 04/14/25 Unknown History ondansetron HCl 4 mg tablet 4 mg PO Q6H PRN Nausea And Vomiting 03/22/25 04/14/25 Unknown History pantoprazole 40 mg tablet,delayed 40 mg PO DAILY@0630 03/22/25 04/14/25 Unknown History release Exam Height,Weight and Vital Signs: Height 5 ft 7 in Weight 67.222 kg Last Vital Signs Temp 97.2 F 05/01/25 06:24 Pulse 83 05/01/25 06:24 Resp 12 05/01/25 06:24 BP 107/72 05/01/25 06:24 Pulse Ox 96 05/01/25 06:24 O2 Del Method Room Air 05/01/25 06:24 O2 Flow Rate 3 04/27/25 08:13 Pertinent Lab Results Pertinent Lab Results: Laboratory Tests 04/16/25 04/17/25 04/17/25 12:17 07:09 13:06 WBC 7.1 RBC 3.81 L Hgb 11.5 L Hct 35.7 L MCV 93.7 MCH 30.2 MCHC 32.2 RDW 15.1 Plt Count 476 H D MPV 8.4 L Immature Gran % (Auto) 1.0 H Neut % (Auto) 57.0 Lymph % (Auto) 31.7 [place] % (Auto) 8.6 Eos % (Auto) 1.0 Baso % (Auto) 0.7 Lymph # (Auto) 2.2 [place] # (Auto) 0.6 Eos # (Auto) 0.1 Baso # (Auto) 0.1 Abs Immat Gran (auto) 0.07 H Absolute Neuts (auto) 4.0 Absolute Nucleated RBC 0.000 Nucleated RBC % (auto) 0.0 Sodium Cancelled 143 Potassium Cancelled 4.2 Chloride Cancelled 111 H Carbon Dioxide Cancelled 25 Anion Gap Cancelled 11 L BUN Cancelled 13 Creatinine Cancelled 0.61 Estim Creat Clear Calc Cancelled 87.0 Estimated GFR Cancelled > 60 POC Glucose 99 Random Glucose Cancelled 78 Estimat Average Glucose Cancelled Hemoglobin A1c % Cancelled Calcium Cancelled 9.2 Total Bilirubin Cancelled AST Cancelled ALT Cancelled Alkaline Phosphatase Cancelled Troponin I High Sens Total Protein Cancelled Albumin Cancelled Triglycerides Cancelled Cholesterol Cancelled LDL Cholesterol, Calc Cancelled HDL Cholesterol Cancelled Vitamin B12 741 Folate 9.6 TSH Cancelled Free T4 Cancelled Urine Color Urine Appearance Urine pH Ur Specific [place] Urine Protein Urine Glucose (UA) Urine Ketones Urine Blood Urine Nitrite Ur Leukocyte Esterase Urine RBC Urine WBC Ur Squamous Epith Cells Calcium Oxalate Crystal Other Crystals Urine Bacteria Hyaline Casts 04/17/25 04/20/25 15:10 15:39 WBC RBC Hgb Hct MCV MCH MCHC RDW Plt Count MPV Immature Gran % (Auto) Neut % (Auto) Lymph % (Auto) [place] % (Auto) Eos % (Auto) Baso % (Auto) Lymph # (Auto) [place] # (Auto) Eos # (Auto) Baso # (Auto) Abs Immat Gran (auto) Absolute Neuts (auto) Absolute Nucleated RBC Nucleated RBC % (auto) Sodium Potassium Chloride Carbon Dioxide Anion Gap BUN Creatinine Estim Creat Clear Calc Estimated GFR POC Glucose Random Glucose Estimat Average Glucose Hemoglobin A1c % Calcium Total Bilirubin AST ALT Alkaline Phosphatase Troponin I High Sens 3.2 Total Protein Albumin Triglycerides Cholesterol LDL Cholesterol, Calc HDL Cholesterol Vitamin B12 Folate TSH Free T4 Urine Color Yellow Urine Appearance Clear Urine pH 6.0 Ur Specific [place] 1.025 Urine Protein Negative Urine Glucose (UA) Negative Urine Ketones Negative Urine Blood Negative Urine Nitrite Negative Ur Leukocyte Esterase Trace H Urine RBC 0-2 Urine WBC 0-5 Ur Squamous Epith Cells 3-5 Calcium Oxalate Crystal Present Other Crystals Present Urine Bacteria None Seen Hyaline Casts 0-2 Airway Mallampati Class: II TM Dist: >3cm Neck ROM: Full Partial: Upper and Lower Heart: rrr Lungs: cta Assessment and Plan Assessment Anesthesia Assessment: Anesthesia Plan Discussed and Chart Reviewed Final Anesthetic Review Family History of Problems with Anesthesia: No History of Problems with Anesthesia: No NPO: Yes ASA Class: III Final Preanesthetic Review: No Changes in Pt Med Stat, Meds/Allgs Chart Reviewed and Consent Obtained/Reviewed Patient Risk: Intermediate Procedure Risk: Intermediate Anesthetic Plan Anesthetic Plan: GA Disposition: Standard PACU
--- NOTE | 2025-05-01 07:08 | MHC.SHP ---
Pre-Procedural Eval Section A - 24 Hr Update-Section A only Date of Service: 05/01/25 The patient is an INPATIENT: Yes Changes since office visit: No Cold of Flu in the past 2 weeks, No New Medical Problems, No Changes in Medication and No Patient answered all questions The patient has been examined within 24 hours of the surgical procedure. The History & Physical has been completed within 30 days and I have reviewed it.: Yes Section B - Complete if H&P > 30 days Chief Complaint: catatonia /bipolar depression Allergies: Allergies Allergy/AdvReac Type Severity Reaction Status Date / Time bee pollen Allergy Severe Anaphylaxis Verified 03/21/25 14:48 levofloxacin (From Levaquin) Allergy Severe Itching Verified 03/21/25 14:48 enoxaparin (From Lovenox) Allergy Intermediate Rash Verified 03/21/25 14:48 Seasonal Allergies Allergy Mild Runny Nose Verified 03/21/25 14:48 venlafaxine (From Effexor) Allergy Mild Constipatio Verified 03/21/25 14:48 n Penicillins Allergy Unknown Unknown Verified 03/21/25 14:48 Plan Diagnosis/Plan: Unchanged I have reviewed the history and physical and performed a pertinent physical examination on my patient. No changes have occurred unless specified. Time Spent With Patient Time: Total time managing care of this patient today ____ minutes.
--- NOTE | 2025-05-01 07:26 | HO.ECTPROC ---
ECT Procedure Note Diagnosis/Treatment Date of Service: 05/01/25 Diagnosis: Bipolar disorder Previous ECT Date: 04/27/25 Current Treatment Number: 9 Treatment: Series Interval Clinical Notes: Pt reports feeling 'okay'. Affect is brighter than when t/w last treated her. She denies any issues with last tx. See [facility] psych notes for further details Time: Total time managing care of this patient today ____ minutes. ECT Settings Device: THYMATRON DGx Program/Pulse Width: 0.50 Energy Percent: 100 Seizure Duration By EEG (in seconds): 50 By Motor Observation (in seconds): 16 Medications Administration General Anesthetic: Etomidate (16 mg) Muscle Relaxant: Succinylcholine (100 mg) Ancillary Medications Miscillaneous Medications: Propofol (30 mg) Airway Management Airway Management: Bag Mask Ventilation Treatment Recommendations No Changes Recommended: No change Pt Tolerated Procedure w/o Issue: Yes
[2025-05-01] MEDS: Sucralfate Oral Suspension 1 GM/10 ML ORAL.SUSP PO ×4 (08:14→20:17)
[2025-05-02 09:05] VITALS: BP 144/70; PULSE 94; RESP 18; TEMP 36.9; O2SAT 98
[2025-05-02] MEDS: Sucralfate Oral Suspension 1 GM/10 ML ORAL.SUSP PO ×4 (09:09→20:45)
--- NOTE | 2025-05-02 17:01 | HO.PSYCHPN ---
Subjective Subjective Date of Service: 05/02/25 Reason For Visit: catatonia /bipolar depression Diagnostics Vital Signs (24Hr): Vital Signs - 24 hr 05/01/25 20:00 05/02/25 09:05 Temperature 97.9 F 98.4 F Pulse Rate 87 94 Respiratory Rate 18 18 Blood Pressure 112/69 144/70 H Pulse Oximetry 97 98 Oxygen Delivery Method Room Air Room Air BMI result Body Mass Index 23.2 Labs 04/17/25 13:06 04/17/25 13:06 Imaging Radiology Impressions: ITS Impressions Head CT 04/17/25 09:49 IMPRESSION: Stable exam. No acute intracranial findings. Electronically signed by: Massiel Tucker MD 04/17/2025 10:22 AM EDT RP Medications Medications Current Medications Acetaminophen (Acetaminophen 325 Mg Tablet) 650 mg PO Q6H PRN PRN Reason: Headache/Pain, Scale 1-10 Last Admin: 04/23/25 08:38 Dose: 650 mg Al Hydroxide/Mg Hydroxide (Magnesium Hydrox/Alum Hydrox 30 Ml Oral.Susp) 30 ml PO Q6H PRN PRN Reason: Heartburn/Nausea Last Admin: 04/27/25 14:00 Dose: 30 ml Calcium Carbonate (Calcium Carbonate 750 Mg Tab.Chew) 750 mg PO Q6H PRN PRN Reason: Heartburn Last Admin: 04/27/25 12:31 Dose: 750 mg Cariprazine (Cariprazine Hcl 1.5 Mg Capsule) 4.5 mg PO DAILY [facility] Last Admin: 05/02/25 09:10 Dose: 4.5 mg Clotrimazole (Clotrimazole 1 % Cream 15 Gm Tube) 1 appl TOPICAL BID [facility]; Protocol Last Admin: 05/02/25 12:30 Dose: Not Given Docusate Sodium (Docusate Sodium 100 Mg Capsule) 100 mg PO BID PRN PRN Reason: Constipation Last Admin: 04/18/25 15:29 Dose: 100 mg Hydroxyzine HCl (Hydroxyzine Hcl 25 Mg Tablet) 25 mg PO Q6H PRN PRN Reason: mild anxiety Last Admin: 05/01/25 13:52 Dose: 25 mg Hydroxyzine HCl (Hydroxyzine Hcl 25 Mg Tablet) 25 mg PO BEDTIME [facility] Last Admin: 05/01/25 20:17 Dose: 25 mg Loperamide HCl (Loperamide Hcl 2 Mg Capsule) 2 mg PO Q6H PRN PRN Reason: Diarrhea Lorazepam (Lorazepam 1 Mg Tablet) 1 mg PO Q6H PRN PRN Reason: severe anxiety Last Admin: 05/02/25 12:45 Dose: 1 mg Lorazepam (Lorazepam 0.5 Mg Tablet) 0.5 mg PO BID [facility] Last Admin: 05/02/25 09:10 Dose: 0.5 mg Magnesium Hydroxide (Milk Of Magnesia 30 Ml Oral.Susp) 30 ml PO DAILY PRN PRN Reason: Constipation Last Admin: 04/21/25 17:12 Dose: 30 ml Melatonin (Melatonin 3 Mg Tablet) 6 mg PO BEDTIME [facility] Last Admin: 05/01/25 20:17 Dose: 6 mg Naloxone HCl (Naloxone Hcl 0.4 Mg/Ml Vial) 0.04 mg IVPUSH Q5M PRN PRN Reason: Excessive sedation or RR < 8 Naloxone HCl (Naloxone Hcl 0.4 Mg/Ml Vial) 0.04 mg IVPUSH Q5M PRN PRN Reason: Excessive sedation or RR < 8 Nicotine (Nicotine 21 Mg Patch.Td24) 21 mg TRANSDERMA DAILY PRN PRN Reason: nicotine craving Nicotine Polacrilex (Nicotine Polacrilex 2 Mg Gum) 2 mg BUCCAL Q2H PRN PRN Reason: Nicotine Cravings Olanzapine (Olanzapine 5 Mg Tablet) 5 mg PO BID PRN PRN Reason: agitation Last Admin: 04/22/25 13:50 Dose: 5 mg Olanzapine (Olanzapine 5 Mg Tablet) 5 mg PO BEDTIME [facility] Last Admin: 05/01/25 20:17 Dose: 5 mg Omeprazole (Omeprazole 40 Mg Capsule.Dr) 40 mg PO BID@0630,1630 [facility] Last Admin: 05/02/25 15:57 Dose: 40 mg Ondansetron HCl (Ondansetron Odt 4 Mg Tab.Rapdis) 4 mg TRANSLINGU Q6H PRN PRN Reason: Nausea and Vomiting Last Admin: 04/18/25 17:10 Dose: 4 mg Sucralfate (Sucralfate Oral Suspension 1 Gm/10 Ml Oral.Susp) 1 gm PO QIDACHS [facility] Last Admin: 05/02/25 15:57 Dose: 1 gm Thiamine HCl (Thiamine Hcl 100 Mg Tablet) 100 mg PO BID [facility] Last Admin: 05/02/25 09:10 Dose: 100 mg Allergies Allergies Allergy/AdvReac Type Severity Reaction Status Date / Time bee pollen Allergy Severe Anaphylaxis Verified 03/21/25 14:48 levofloxacin (From Levaquin) Allergy Severe Itching Verified 03/21/25 14:48 enoxaparin (From Lovenox) Allergy Intermediate Rash Verified 03/21/25 14:48 Seasonal Allergies Allergy Mild Runny Nose Verified 03/21/25 14:48 venlafaxine (From Effexor) Allergy Mild Constipatio Verified 03/21/25 14:48 n Penicillins Allergy Unknown Unknown Verified 03/21/25 14:48 Assessment & Plan Assessment & Plan (1) Bipolar 1 disorder, depressed, severe: Status: Acute Code(s): F31.4 - Bipolar disorder, current episode depressed, severe, without psychotic features (2) Catatonia: Status: Acute Code(s): F06.1 - Catatonic disorder due to known physiological condition Plan HPI: patient is a 69 yo female with hx history of UTI, depression, bipolar 1 depression, osteoarthritis, status post cardiac catheterization, anxiety, GERD, insomnia, osteopenia, 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 Patient has been at [facility] for approximately 3 weeks. Patient originally seen in [facility] after patient called 911. Prior to that patient had a puppy but could no longer care for the puppy and the puppy was taken away. Patient appeared to have a breakdown and was calling sister incessantly regarding the puppy and apparently called 911 out of distress. Patient was transferred to [facility] on a section 12 from [facility] for MDD, intrusive thoughts and auditory hallucinations. She was on Med floor from 03/20/25 to 04/14/25: Patient was admitted for bipolar disorder with catatonia moderate protein calorie malnutrition. Was treated with IV Valium, multiple ECTs, was supported with parenteral nutrition. Slowly patient had improvement, became more verbal, more participatory and diet significantly increased and was able to be weaned off parenteral nutrition. Was seen by Psychiatry who adjusted medications. Patient is still having significant acute psychiatric issues so will be discharged to inpatient psych. During hospitalization patient did have episode of acute hypoxic respiratory failure possibly due to pneumonia and completed 1 week of ertapenem. Formulation/clinical reasoning: Continue presenting with manic/psychotic/catatonia features. Just recently taking PO medication the past 2-3 days plus starting eating, advance to regular diet prior to transferred to S[facility]. Hospital course: 04/14/25: Continue with ECT as scheduled Ativan 0.5mg TID PO for anxiety/catatonia. Ativan 0.5mg BID PRN For severe anxiety Increase Zypexa 2.5 BID to 5mg BID to target psychotic/bipolar symptoms. BID PRN for severe agitation 04/16: Continue current treatment regimen. Encouraged to use her walker for ambulation at all times. Verbalized understanding and agrees with the plan. 04/17 missed ECT today since she ate breakfast; also had a witnessed fall but patient said she did not hit her head, neuro checks unremarkable. Patient showing some signs of improvement and more organized in speech today. Discussed ECT with her and she seemed to accept that she is better for said okay to continuing 04/18/25: Patient slept for 7 hours, compliant with medications, remain on 1-1 for for risk. Reports passive SI, reports heartburn. Given Tums, and other PRNs for anxiety, racing thoughts, severe anxiety. Usually lies a lot of PRNs. She is negative, not future focus I do not want to be here. Nobody helping me . U/A on 04/17/25 seemed fine. No UTI. Given extra Ativan 1mg and Zyprexa 5mg x1 today for severe anxiety and racing thoughts. 04/19/25: Patient slept better, remain on 1-1. No falls. Patient is negative, feeling like she is dying and not getting better. Passive SI I do not want to live anymore. I do not want to be here. I think I am going to hell . Patient does not want to having ECT tomorrow is not helping me. Make me worse . Reports depression anxiety. Patient encouraged to eat, need lots of direction and encouragement, and assurance. However, overall, patient is better than yesterday. 04/20 still disorganized, but steadily improving; continue tx plan 04/21 Were organized tolerating ECT continue ECT course improved ambulation Plan: 04/23/25 Cont ect inc abilify prilosec for reflux 04/24/25 Pt tolerated todays ect no psychosis dysphoric irritable but much improved carafate and prilosec for gerd inc abilify 10 mg ect note reviewed dr holden 04/25: continue current management and treatment plan. 04/26: Start Prilosec 20 mg daily. Otherwise continue current management and treatment plan. 04/27/[address] increase Prilosec to 20 b.i.d. secondary to reflux Abilify discontinued secondary to irritability akathisia Vraylar started 04/28/25 Pt improving less labile on vraylar inc to 3 mg if lucrecia can inc further taper ect 04/30/2025 Patient denied being her meds a to admission does state that at a daily visiting nurse. Was on Seroquel prior to admission. Patient on Vraylar seems appropriate for bipolar mixed states depression. Still complains of anxiety has irritability consider Depakote ECT for the morning Time Spent With Patient Time: Total time managing care of this patient today ____ minutes.
[2025-05-02 20:00] VITALS: BP 122/57; PULSE 80; RESP 18; TEMP 36.8; O2SAT 95
[2025-05-03] MEDS: Sucralfate Oral Suspension 1 GM/10 ML ORAL.SUSP PO ×4 (06:37→20:15)
[2025-05-03 08:07] VITALS: BP 140/79; PULSE 84; RESP 18; TEMP 37.3; O2SAT 98
--- NOTE | 2025-05-03 19:26 | HO.PSYCHPN ---
Subjective Subjective Date of Service: 05/03/25 Reason For Visit: catatonia /bipolar depression Interim History: chart reviewed, case discussed w/ nursing staff Met w/ pt in milieu, where she was watching TV w/ peers She is aware of plan for ECT tomorrow am and agreeable. States that she was catatonic on admission and she's feeling better now Denies any issues w/ last ECT that she can recall. Reports sleeping well but states that she feels wound up and wired in the evening. Asks if her meds can be adjusted Denies SI MSE: Appearance: Casually dressed. Grooming/hygiene wnl. Good eye contact Attitude:Cooperative Speech: Fluent and wnl in regard to volume, tone, prosody Motor activity: Calm and without any tics, tremors or dyskinesias. Mood: as noted above Affect: appropriate, reactive, generally bright Thought process: goal directed and without evidence of formal thought disorder Thought content: as noted above. Perception: does not appear to respond to internal stimuli Cognition grossly intact Insight: intact Judgment: intact Diagnostics Vital Signs (24Hr): Vital Signs - 24 hr 05/03/25 08:07 Temperature 99.1 F Pulse Rate 84 Respiratory Rate 18 Blood Pressure 140/79 H Pulse Oximetry 98 Oxygen Delivery Method Room Air BMI result Body Mass Index 23.2 Labs 04/17/25 13:06 04/17/25 13:06 Imaging Radiology Impressions: ITS Impressions Head CT 04/17/25 09:49 IMPRESSION: Stable exam. No acute intracranial findings. Electronically signed by: Massiel Tucker MD 04/17/2025 10:22 AM EDT Medications Medications Current Medications Acetaminophen (Acetaminophen 325 Mg Tablet) 650 mg PO Q6H PRN PRN Reason: Headache/Pain, Scale 1-10 Last Admin: 04/23/25 08:38 Dose: 650 mg Al Hydroxide/Mg Hydroxide (Magnesium Hydrox/Alum Hydrox 30 Ml Oral.Susp) 30 ml PO Q6H PRN PRN Reason: Heartburn/Nausea Last Admin: 04/27/25 14:00 Dose: 30 ml Calcium Carbonate (Calcium Carbonate 750 Mg Tab.Chew) 750 mg PO Q6H PRN PRN Reason: Heartburn Last Admin: 04/27/25 12:31 Dose: 750 mg Cariprazine (Cariprazine Hcl 1.5 Mg Capsule) 4.5 mg PO DAILY [facility] Last Admin: 05/03/25 08:16 Dose: 4.5 mg Docusate Sodium (Docusate Sodium 100 Mg Capsule) 100 mg PO BID PRN PRN Reason: Constipation Last Admin: 04/18/25 15:29 Dose: 100 mg Hydroxyzine HCl (Hydroxyzine Hcl 25 Mg Tablet) 25 mg PO Q6H PRN PRN Reason: mild anxiety Last Admin: 05/01/25 13:52 Dose: 25 mg Hydroxyzine HCl (Hydroxyzine Hcl 25 Mg Tablet) 25 mg PO BEDTIME REPLACED [facility] Last Admin: 05/02/25 20:45 Dose: 25 mg Loperamide HCl (Loperamide Hcl 2 Mg Capsule) 2 mg PO Q6H PRN PRN Reason: Diarrhea Lorazepam (Lorazepam 1 Mg Tablet) 1 mg PO Q6H PRN PRN Reason: severe anxiety Last Admin: 05/03/25 15:25 Dose: 1 mg Lorazepam (Lorazepam 0.5 Mg Tablet) 0.5 mg PO BID [facility]PL[facility] Last Admin: 05/03/25 08:16 Dose: 0.5 mg Magnesium Hydroxide (Milk Of Magnesia 30 Ml Oral.Susp) 30 ml PO DAILY PRN PRN Reason: Constipation Last Admin: 04/21/25 17:12 Dose: 30 ml Melatonin (Melatonin 3 Mg Tablet) 6 mg PO BEDTIME REPLACED [facility] Last Admin: 05/02/25 20:45 Dose: 6 mg Naloxone HCl (Naloxone Hcl 0.4 Mg/Ml Vial) 0.04 mg IVPUSH Q5M PRN PRN Reason: Excessive sedation or RR < 8 Naloxone HCl (Naloxone Hcl 0.4 Mg/Ml Vial) 0.04 mg IVPUSH Q5M PRN PRN Reason: Excessive sedation or RR < 8 Nicotine (Nicotine 21 Mg Patch.Td24) 21 mg TRANSDERMA DAILY PRN PRN Reason: nicotine craving Nicotine Polacrilex (Nicotine Polacrilex 2 Mg Gum) 2 mg BUCCAL Q2H PRN PRN Reason: Nicotine Cravings Olanzapine (Olanzapine 5 Mg Tablet) 5 mg PO BID PRN PRN Reason: agitation Last Admin: 04/22/25 13:50 Dose: 5 mg Olanzapine (Olanzapine 5 Mg Tablet) 5 mg PO BEDTIME REPLACED BY [facility] Last Admin: 05/02/25 20:45 Dose: 5 mg Omeprazole (Omeprazole 40 Mg Capsule.Dr) 40 mg PO BID@0630,1630 REPLACED BY [facility] Last Admin: 05/03/25 15:25 Dose: 40 mg Ondansetron HCl (Ondansetron Odt 4 Mg Tab.Rapdis) 4 mg TRANSLINGU Q6H PRN PRN Reason: Nausea and Vomiting Last Admin: 04/18/25 17:10 Dose: 4 mg Sucralfate (Sucralfate Oral Suspension 1 Gm/10 Ml Oral.Susp) 1 gm PO QIDACHS REPLACED BY [facility] Last Admin: 05/03/25 15:25 Dose: 1 gm Thiamine HCl (Thiamine Hcl 100 Mg Tablet) 100 mg PO BID REPLACED BY [facility] Last Admin: 05/03/25 08:16 Dose: 100 mg Allergies Allergies Allergy/AdvReac Type Severity Reaction Status Date / Time bee pollen Allergy Severe Anaphylaxis Verified 03/21/25 14:48 levofloxacin (From Levaquin) Allergy Severe Itching Verified 03/21/25 14:48 enoxaparin (From Lovenox) Allergy Intermediate Rash Verified 03/21/25 14:48 Seasonal Allergies Allergy Mild Runny Nose Verified 03/21/25 14:48 venlafaxine (From Effexor) Allergy Mild Constipatio Verified 03/21/25 14:48 n Penicillins Allergy Unknown Unknown Verified 03/21/25 14:48 Assessment & Plan Assessment & Plan (1) Bipolar 1 disorder, depressed, severe: Status: Acute Code(s): F31.4 - Bipolar disorder, current episode depressed, severe, without psychotic features (2) Catatonia: Status: Acute Code(s): F06.1 - Catatonic disorder due to known physiological condition Plan HPI: patient is a 69 yo female with hx history of UTI, depression, bipolar 1 depression, osteoarthritis, status post cardiac catheterization, anxiety, GERD, insomnia, osteopenia, 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 Patient has been at [facility] for approximately 3 weeks. Patient originally seen in [facility] after patient called 911. Prior to that patient had a puppy but could no longer care for the puppy and the puppy was taken away. Patient appeared to have a breakdown and was calling sister incessantly regarding the puppy and apparently called 911 out of distress. Patient was transferred to [facility] on a section 12 from [facility] for MDD, intrusive thoughts and auditory hallucinations. She was on [facility] floor from 03/20/25 to 04/14/25: Patient was admitted for bipolar disorder with catatonia moderate protein calorie malnutrition. Was treated with IV Valium, multiple ECTs, was supported with parenteral nutrition. Slowly patient had improvement, became more verbal, more participatory and diet significantly increased and was able to be weaned off parenteral nutrition. Was seen by Psychiatry who adjusted medications. Patient is still having significant acute psychiatric issues so will be discharged to inpatient psych. During hospitalization patient did have episode of acute hypoxic respiratory failure possibly due to pneumonia and completed 1 week of ertapenem. Formulation/clinical reasoning: Continue presenting with manic/psychotic/catatonia features. Just recently taking PO medication the past 2-3 days plus starting eating, advance to regular diet prior to transferred to . Hospital course: 04/14/25: Continue with ECT as scheduled Ativan 0.5mg TID PO for anxiety/catatonia. Ativan 0.5mg BID PRN For severe anxiety Increase Zypexa 2.5 BID to 5mg BID to target psychotic/bipolar symptoms. BID PRN for severe agitation 04/16: Continue current treatment regimen. Encouraged to use her walker for ambulation at all times. Verbalized understanding and agrees with the plan. 04/17 missed ECT today since she ate breakfast; also had a witnessed fall but patient said she did not hit her head, neuro checks unremarkable. Patient showing some signs of improvement and more organized in speech today. Discussed ECT with her and she seemed to accept that she is better for said okay to continuing 04/18/25: Patient slept for 7 hours, compliant with medications, remain on 1-1 for for risk. Reports passive SI, reports heartburn. Given Tums, and other PRNs for anxiety, racing thoughts, severe anxiety. Usually lies a lot of PRNs. She is negative, not future focus I do not want to be here. Nobody helping me . U/A on 04/17/25 seemed fine. No UTI. Given extra Ativan 1mg and Zyprexa 5mg x1 today for severe anxiety and racing thoughts. 04/19/25: Patient slept better, remain on 1-1. No falls. Patient is negative, feeling like she is dying and not getting better. Passive SI I do not want to live anymore. I do not want to be here. I think I am going to hell . Patient does not want to having ECT tomorrow is not helping me. Make me worse . Reports depression anxiety. Patient encouraged to eat, need lots of direction and encouragement, and assurance. However, overall, patient is better than yesterday. 04/20 still disorganized, but steadily improving; continue tx plan 04/21 Were organized tolerating ECT continue ECT course improved ambulation Plan: 04/23/25 Cont ect inc abilify prilosec for reflux 04/24/25 Pt tolerated todays ect no psychosis dysphoric irritable but much improved carafate and prilosec for gerd inc abilify 10 mg ect note reviewed dr holden 04/25: continue current management and treatment plan. 04/26: Start Prilosec 20 mg daily. Otherwise continue current management and treatment plan. 04/27/[address] increase Prilosec to 20 b.i.d. secondary to reflux Abilify discontinued secondary to irritability akathisia Vraylar started 04/28/25 Pt improving less labile on vraylar inc to 3 mg if lucrecia can inc further taper ect 04/30/2025 Patient denied being her meds a to admission does state that at a daily visiting nurse. Was on Seroquel prior to admission. Patient on Vraylar seems appropriate for bipolar mixed states depression. Still complains of anxiety has irritability consider Depakote ECT for the morning 05/03: ECT scheduled for tomorrow. NPO ordered after midnight. Will defer med adjustments to primary team since she has multiple prns for anxiety/agitation Reason for continued inpatient stay Substantial Risk for: med/psych decompensation Time Spent With Patient Time: Total time managing care of this patient today ____ minutes.
[2025-05-03 20:12] VITALS: BP 118/63; PULSE 79; RESP 16; TEMP 36.2; O2SAT 79
[2025-05-04] VITALS (9 sets, daily range): BP systolic 99–179; BP diastolic 54–87; PULSE 80–94; RESP 12–24; TEMP 36–37.1; O2SAT 94–98
--- NOTE | 2025-05-04 07:51 | P.PNPSI_ITS ---
Subjective Subjective Reason For Visit: catatonia /bipolar depression Diagnostics Vital Signs (24Hr): Vital Signs - 24 hr 05/03/25 08:07 05/03/25 20:12 05/04/25 05:36 Temperature 99.1 F 97.2 F 98.2 F Pulse Rate 84 79 80 Respiratory Rate 18 16 16 Blood Pressure 140/79 H 118/63 99/54 L Pulse Oximetry 98 79 L 96 Oxygen Delivery Method Room Air Room Air 05/04/25 06:55 Temperature 97.9 F Pulse Rate 81 Respiratory Rate 20 Blood Pressure 139/77 Pulse Oximetry 97 Oxygen Delivery Method Room Air BMI result Body Mass Index 23.2 Labs 04/17/25 13:06 04/17/25 13:06 Imaging Radiology Impressions: ITS Impressions Head CT 04/17/25 09:49 IMPRESSION: Stable exam. No acute intracranial findings. Electronically signed by: Massiel Tucker MD 04/17/2025 10:22 AM EDT RP Medications Medications Current Medications Acetaminophen (Acetaminophen 325 Mg Tablet) 650 mg PO Q6H PRN PRN Reason: Headache/Pain, Scale 1-10 Last Admin: 04/23/25 08:38 Dose: 650 mg Al Hydroxide/Mg Hydroxide (Magnesium Hydrox/Alum Hydrox 30 Ml Oral.Susp) 30 ml PO Q6H PRN PRN Reason: Heartburn/Nausea Last Admin: 04/27/25 14:00 Dose: 30 ml Calcium Carbonate (Calcium Carbonate 750 Mg Tab.Chew) 750 mg PO Q6H PRN PRN Reason: Heartburn Last Admin: 04/27/25 12:31 Dose: 750 mg Cariprazine (Cariprazine Hcl 1.5 Mg Capsule) 4.5 mg PO DAILY [facility] Last Admin: 05/03/25 08:16 Dose: 4.5 mg Docusate Sodium (Docusate Sodium 100 Mg Capsule) 100 mg PO BID PRN PRN Reason: Constipation Last Admin: 04/18/25 15:29 Dose: 100 mg Hydroxyzine HCl (Hydroxyzine Hcl 25 Mg Tablet) 25 mg PO Q6H PRN PRN Reason: mild anxiety Last Admin: 05/03/25 21:36 Dose: 25 mg Hydroxyzine HCl (Hydroxyzine Hcl 25 Mg Tablet) 25 mg PO BEDTIME [facility] Last Admin: 05/03/25 20:14 Dose: 25 mg Loperamide HCl (Loperamide Hcl 2 Mg Capsule) 2 mg PO Q6H PRN PRN Reason: Diarrhea Lorazepam (Lorazepam 1 Mg Tablet) 1 mg PO Q6H PRN PRN Reason: severe anxiety Last Admin: 05/03/25 15:25 Dose: 1 mg Lorazepam (Lorazepam 0.5 Mg Tablet) 0.5 mg PO BID [facility] Last Admin: 05/03/25 20:14 Dose: 0.5 mg Magnesium Hydroxide (Milk Of Magnesia 30 Ml Oral.Susp) 30 ml PO DAILY PRN PRN Reason: Constipation Last Admin: 04/21/25 17:12 Dose: 30 ml Melatonin (Melatonin 3 Mg Tablet) 6 mg PO BEDTIME [facility] Last Admin: 05/03/25 20:14 Dose: 6 mg Naloxone HCl (Naloxone Hcl 0.4 Mg/Ml Vial) 0.04 mg IVPUSH Q5M PRN PRN Reason: Excessive sedation or RR < 8 Naloxone HCl (Naloxone Hcl 0.4 Mg/Ml Vial) 0.04 mg IVPUSH Q5M PRN PRN Reason: Excessive sedation or RR < 8 Nicotine (Nicotine 21 Mg Patch.Td24) 21 mg TRANSDERMA DAILY PRN PRN Reason: nicotine craving Nicotine Polacrilex (Nicotine Polacrilex 2 Mg Gum) 2 mg BUCCAL Q2H PRN PRN Reason: Nicotine Cravings Olanzapine (Olanzapine 5 Mg Tablet) 5 mg PO BID PRN PRN Reason: agitation Last Admin: 04/22/25 13:50 Dose: 5 mg Olanzapine (Olanzapine 5 Mg Tablet) 5 mg PO BEDTIME [facility] Last Admin: 05/03/25 20:14 Dose: 5 mg Omeprazole (Omeprazole 40 Mg Capsule.Dr) 40 mg PO BID@0630,1630 [facility] Last Admin: 05/03/25 15:25 Dose: 40 mg Ondansetron HCl (Ondansetron Odt 4 Mg Tab.Rapdis) 4 mg TRANSLINGU Q6H PRN PRN Reason: Nausea and Vomiting Last Admin: 04/18/25 17:10 Dose: 4 mg Sucralfate (Sucralfate Oral Suspension 1 Gm/10 Ml Oral.Susp) 1 gm PO QIDACHS [facility] Last Admin: 05/03/25 20:15 Dose: 1 gm Thiamine HCl (Thiamine Hcl 100 Mg Tablet) 100 mg PO BID [facility] Last Admin: 05/03/25 20:14 Dose: 100 mg Allergies Allergies Allergy/AdvReac Type Severity Reaction Status Date / Time bee pollen Allergy Severe Anaphylaxis Verified 03/21/25 14:48 levofloxacin (From Levaquin) Allergy Severe Itching Verified 03/21/25 14:48 enoxaparin (From Lovenox) Allergy Intermediate Rash Verified 03/21/25 14:48 Seasonal Allergies Allergy Mild Runny Nose Verified 03/21/25 14:48 venlafaxine (From Effexor) Allergy Mild Constipatio Verified 03/21/25 14:48 n Penicillins Allergy Unknown Unknown Verified 03/21/25 14:48 Assessment & Plan Assessment & Plan (1) Bipolar 1 disorder, depressed, severe: Status: Acute Code(s): F31.4 - Bipolar disorder, current episode depressed, severe, without psychotic features (2) Catatonia: Status: Acute Code(s): F06.1 - Catatonic disorder due to known physiological condition Plan HPI: patient is a 69 yo female with hx history of UTI, depression, bipolar 1 depression, osteoarthritis, status post cardiac catheterization, anxiety, GERD, insomnia, osteopenia, 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 Patient has been at [facility] for approximately 3 weeks. Patient originally seen in [facility] after patient called 911. Prior to that patient had a puppy but could no longer care for the puppy and the puppy was taken away. Patient appeared to have a breakdown and was calling sister incessantly regarding the puppy and apparently called 911 out of distress. Patient was transferred to [facility] on a section 12 from [facility] for MDD, intrusive thoughts and auditory hallucinations. She was on Med floor from 03/20/25 to 04/14/25: Patient was admitted for bipolar disorder with catatonia moderate protein calorie malnutrition. Was treated with IV Valium, multiple ECTs, was supported with parenteral nutrition. Slowly patient had improvement, became more verbal, more participatory and diet significantly increased and was able to be weaned off parenteral nutrition. Was seen by Psychiatry who adjusted medications. Patient is still having significant acute psychiatric issues so will be discharged to inpatient psych. During hospitalization patient did have episode of acute hypoxic respiratory failure possibly due to pneumonia and completed 1 week of ertapenem. Formulation/clinical reasoning: Continue presenting with manic/psychotic/catatonia features. Just recently taking PO medication the past 2-3 days plus starting eating, advance to regular diet prior to transferred to S1. Hospital course: 04/14/25: Continue with ECT as scheduled Ativan 0.5mg TID PO for anxiety/catatonia. Ativan 0.5mg BID PRN For severe anxiety Increase Zypexa 2.5 BID to 5mg BID to target psychotic/bipolar symptoms. BID PRN for severe agitation 04/16: Continue current treatment regimen. Encouraged to use her walker for ambulation at all times. Verbalized understanding and agrees with the plan. 04/17 missed ECT today since she ate breakfast; also had a witnessed fall but patient said she did not hit her head, neuro checks unremarkable. Patient showing some signs of improvement and more organized in speech today. Discussed ECT with her and she seemed to accept that she is better for said okay to continuing 04/18/25: Patient slept for 7 hours, compliant with medications, remain on 1-1 for for risk. Reports passive SI, reports heartburn. Given Tums, and other PRNs for anxiety, racing thoughts, severe anxiety. Usually lies a lot of PRNs. She is negative, not future focus I do not want to be here. Nobody helping me . U/A on 04/17/25 seemed fine. No UTI. Given extra Ativan 1mg and Zyprexa 5mg x1 today for severe anxiety and racing thoughts. 04/19/25: Patient slept better, remain on 1-1. No falls. Patient is negative, feeling like she is dying and not getting better. Passive SI I do not want to live anymore. I do not want to be here. I think I am going to hell . Patient does not want to having ECT tomorrow is not helping me. Make me worse . Reports depression anxiety. Patient encouraged to eat, need lots of direction and encouragement, and assurance. However, overall, patient is better than yesterday. 04/20 still disorganized, but steadily improving; continue tx plan 04/21 Were organized tolerating ECT continue ECT course improved ambulation Plan: 04/23/25 Cont ect inc abilify prilosec for reflux 04/24/25 Pt tolerated todays ect no psychosis dysphoric irritable but much improved carafate and prilosec for gerd inc abilify 10 mg ect note reviewed dr holden 04/25: continue current management and treatment plan. 04/26: Start Prilosec 20 mg daily. Otherwise continue current management and treatment plan. 04/27/[address] increase Prilosec to 20 b.i.d. secondary to reflux Abilify discontinued secondary to irritability akathisia Vraylar started 04/28/25 Pt improving less labile on vraylar inc to 3 mg if lucrecia can inc further taper ect 04/30/2025 Patient denied being her meds a to admission does state that at a daily visiting nurse. Was on Seroquel prior to admission. Patient on Vraylar seems appropriate for bipolar mixed states depression. Still complains of anxiety has irritability consider Depakote ECT for the morning 05/03: ECT scheduled for tomorrow. NPO ordered after midnight. Will defer med adjustments to primary team since she has multiple prns for anxiety/agitation Time Spent With Patient Time: Total time managing care of this patient today ____ minutes.
--- NOTE | 2025-05-04 07:54 | MHC.SHP ---
Pre-Procedural Eval Section A - 24 Hr Update-Section A only Date of Service: 05/04/25 The patient is an INPATIENT: Yes Changes since office visit: No Cold of Flu in the past 2 weeks, No New Medical Problems, No Changes in Medication and No Patient answered all questions The patient has been examined within 24 hours of the surgical procedure. The History & Physical has been completed within 30 days and I have reviewed it.: Yes Section B - Complete if H&P > 30 days Chief Complaint: catatonia /bipolar depression Allergies: Allergies Allergy/AdvReac Type Severity Reaction Status Date / Time bee pollen Allergy Severe Anaphylaxis Verified 03/21/25 14:48 levofloxacin (From Levaquin) Allergy Severe Itching Verified 03/21/25 14:48 enoxaparin (From Lovenox) Allergy Intermediate Rash Verified 03/21/25 14:48 Seasonal Allergies Allergy Mild Runny Nose Verified 03/21/25 14:48 venlafaxine (From Effexor) Allergy Mild Constipatio Verified 03/21/25 14:48 n Penicillins Allergy Unknown Unknown Verified 03/21/25 14:48 Plan Diagnosis/Plan: Unchanged I have reviewed the history and physical and performed a pertinent physical examination on my patient. No changes have occurred unless specified. Time Spent With Patient Time: Total time managing care of this patient today ____ minutes.
--- NOTE | 2025-05-04 07:56 | P.CONAN1_ITS ---
History of Present Illness Consult details Consult date: 05/04/25 [facility] Past Medical History Medical History Delirium due to another medical condition History of skin cancer Hx of bladder problems VITO (generalized anxiety disorder) Murmur, cardiac Hx of thyroid nodule Osteopenia Hx of skin cancer, basal cell Seasonal allergies Insomnia Constipation GERD (gastroesophageal reflux disease) Anxiety History of electroconvulsive therapy Bipolar 1 disorder Functional capacity: independent ambulation Family History Family History Mother Basal cell carcinoma (BCC) in situ of skin Osteoporosis Hyperlipidemia Father CAD (coronary artery disease) Alcoholism Sister Osteoporosis Depression Brother Cancer of tongue Cancer of skin Surgical History Surgical History Hx of colonoscopy H/O elbow surgery History of back surgery Social History Social History Household Members: None Household Members Other:: brought in [facility] Housing: Apartment Are you a primary youth career specialist to a significant other at home: No Do you presently have visiting nurse or other home services: Yes Comment: 5 minute Patient Tobacco Use Status: Never used Tobacco Tobacco use type: Cigarette Years Smoked: 30+, now vapes e-Cigarette/Vaping Use: Currently Using Second Hand Smoke Exposure: No Substance Use Type: Crack/Cocaine Currently Displaying Signs/Symptoms of Drug Intoxication Withdrawal: No Have you been hit, kicked, punched, or otherwise hurt by someone within the past year? If so, by whom?: No Do you feel safe in your current relationship?: No Are you made to feel afraid or neglected: No Spiritual Healthcare Practices: No Muslim Healthcare Practices: No Cultural Healthcare Practices: No Are you DNR?: No Advance Directives: Yes Advance Directives on File: Yes Advance Directives Date on File: 06/12/24 Do you have thoughts of harming others: None Do you have a plan to hurt others: No Plan Recently lost weight without trying: Yes How much weight loss: Unsure Eating poorly because of decreased appetite: No Nutrition screen score: 4 Nutrition Risks: No Nutritional Risk Patient : No : No Poor oral hygiene: No service: No Current occupational status: unemployed and retired 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 Sexual orientation: Straight/Heterosexual Meds Allergies Allergy/AdvReac Type Severity Reaction Status Date / Time bee pollen Allergy Severe Anaphylaxis Verified 03/21/25 14:48 levofloxacin (From Levaquin) Allergy Severe Itching Verified 03/21/25 14:48 enoxaparin (From Lovenox) Allergy Intermediate Rash Verified 03/21/25 14:48 Seasonal Allergies Allergy Mild Runny Nose Verified 03/21/25 14:48 venlafaxine (From Effexor) Allergy Mild Constipatio Verified 03/21/25 14:48 n Penicillins Allergy Unknown Unknown Verified 03/21/25 14:48 Active Medications: Current Medications Acetaminophen (Acetaminophen 325 Mg Tablet) 650 mg PO Q6H PRN PRN Reason: Headache/Pain, Scale 1-10 Last Admin: 04/23/25 08:38 Dose: 650 mg Al Hydroxide/Mg Hydroxide (Magnesium Hydrox/Alum Hydrox 30 Ml Oral.Susp) 30 ml PO Q6H PRN PRN Reason: Heartburn/Nausea Last Admin: 04/27/25 14:00 Dose: 30 ml Calcium Carbonate (Calcium Carbonate 750 Mg Tab.Chew) 750 mg PO Q6H PRN PRN Reason: Heartburn Last Admin: 04/27/25 12:31 Dose: 750 mg Cariprazine (Cariprazine Hcl 1.5 Mg Capsule) 4.5 mg PO DAILY [facility] Last Admin: 05/03/25 08:16 Dose: 4.5 mg Docusate Sodium (Docusate Sodium 100 Mg Capsule) 100 mg PO BID PRN PRN Reason: Constipation Last Admin: 04/18/25 15:29 Dose: 100 mg Hydroxyzine HCl (Hydroxyzine Hcl 25 Mg Tablet) 25 mg PO Q6H PRN PRN Reason: mild anxiety Last Admin: 05/03/25 21:36 Dose: 25 mg Hydroxyzine HCl (Hydroxyzine Hcl 25 Mg Tablet) 25 mg PO BEDTIME [facility] Last Admin: 05/03/25 20:14 Dose: 25 mg Loperamide HCl (Loperamide Hcl 2 Mg Capsule) 2 mg PO Q6H PRN PRN Reason: Diarrhea Lorazepam (Lorazepam 1 Mg Tablet) 1 mg PO Q6H PRN PRN Reason: severe anxiety Last Admin: 05/03/25 15:25 Dose: 1 mg Lorazepam (Lorazepam 0.5 Mg Tablet) 0.5 mg PO BID [facility] Last Admin: 05/03/25 20:14 Dose: 0.5 mg Magnesium Hydroxide (Milk Of Magnesia 30 Ml Oral.Susp) 30 ml PO DAILY PRN PRN Reason: Constipation Last Admin: 04/21/25 17:12 Dose: 30 ml Melatonin (Melatonin 3 Mg Tablet) 6 mg PO BEDTIME [facility] Last Admin: 05/03/25 20:14 Dose: 6 mg Naloxone HCl (Naloxone Hcl 0.4 Mg/Ml Vial) 0.04 mg IVPUSH Q5M PRN PRN Reason: Excessive sedation or RR < 8 Naloxone HCl (Naloxone Hcl 0.4 Mg/Ml Vial) 0.04 mg IVPUSH Q5M PRN PRN Reason: Excessive sedation or RR < 8 Nicotine (Nicotine 21 Mg Patch.Td24) 21 mg TRANSDERMA DAILY PRN PRN Reason: nicotine craving Nicotine Polacrilex (Nicotine Polacrilex 2 Mg Gum) 2 mg BUCCAL Q2H PRN PRN Reason: Nicotine Cravings Olanzapine (Olanzapine 5 Mg Tablet) 5 mg PO BID PRN PRN Reason: agitation Last Admin: 04/22/25 13:50 Dose: 5 mg Olanzapine (Olanzapine 5 Mg Tablet) 5 mg PO BEDTIME [facility] Last Admin: 05/03/25 20:14 Dose: 5 mg Omeprazole (Omeprazole 40 Mg Capsule.Dr) 40 mg PO BID@0630,1630 [facility] Last Admin: 05/03/25 15:25 Dose: 40 mg Ondansetron HCl (Ondansetron Odt 4 Mg Tab.Rapdis) 4 mg TRANSLINGU Q6H PRN PRN Reason: Nausea and Vomiting Last Admin: 04/18/25 17:10 Dose: 4 mg Sucralfate (Sucralfate Oral Suspension 1 Gm/10 Ml Oral.Susp) 1 gm PO QIDACHS [facility] Last Admin: 05/03/25 20:15 Dose: 1 gm Thiamine HCl (Thiamine Hcl 100 Mg Tablet) 100 mg PO BID [facility] Last Admin: 05/03/25 20:14 Dose: 100 mg Home Medications ?Medication ?Instructions ?Recorded ?Confirmed ?Last Taken ?Type docusate sodium 100 mg capsule 1 cap PO BID PRN Consti pation 03/22/25 04/14/25 Unknown History loperamide 2 mg tablet 2 mg PO Q6H PRN Diarrhea 04/14/25 Unknown History lorazepam 0.5 mg tablet 0.5 mg PO TID 03/22/2504/14 Unknown History melatonin 3 mg tablet 3 mg PO BEDTIME PRN Sleep 04/14/25 Unknown History ondansetron HCl 4 mg tablet 4 mg PO Q6H PRN Nausea And Vomiting 03/22/25 04/14/25 Unknown History pantoprazole 40 mg tablet,delayed 40 mg PO DAILY@0630 03/22/25 04/14/25 Unknown History release Physical Exam 2 Vital Signs: Vital Signs: Last Vital Signs Temp 97.9 F 05/04/25 06:55 Pulse 81 05/04/25 06:55 Resp 20 05/04/25 06:55 BP 139/77 05/04/25 06:55 Pulse Ox 97 05/04/25 06:55 O2 Del Method Room Air 05/04/25 06:55 O2 Flow Rate 2 05/01/25 07:44 BMI result Body Mass Index 23.2 Results Labs 04/17/25 13:06 04/17/25 13:06 Labs: Urine 04/17/25 Range/Units 15:10 Urine Color Yellow Urine Appearance Clear Urine pH 6.0 (5.0-9.0) Ur Specific Berry 1.025 (1.005-1.025) Urine Protein Negative (Neg-Trace) mg/dL Urine Glucose (UA) Negative (Negative) mg/dL All other labs normal. Procedures Date of Service Date of Service: 05/04/25
--- NOTE | 2025-05-04 08:14 | P.PNPSI_ITS ---
Subjective Subjective Date of Service: 05/04/25 Reason For Visit: catatonia /bipolar depression Subjective Notes: Conditional Voluntary Healthcare Proxy: Yes Interim History: Patient tolerated ECT without difficulty. Patient focused on not wanting to go to a rest home setting stating she has a daily visiting nurse [facility] comfortable in her present surroundings. Denies drinking prior to admission denies taking medication generally confirmed by VNA. Case reviewed with patient's psychiatric provider outpatient Mental Status Exam Mental Status Exam Patient Appearance: Unkempt Level of Consciousness: Awake Mood Description: Apprehensive Affect Description: Depressed and Apprehensive Speech Pattern: Clear Memory Description: Episodic Impaired Hallucinations: None Thought Process: Rumination Thought Content: positive for [place] Depressive Symptoms: Increased Anxiety Judgement: Fair Diagnostics Vital Signs (24Hr): Vital Signs - 24 hr 05/03/25 20:12 05/04/25 05:36 05/04/25 06:55 Temperature 97.2 F 98.2 F 97.9 F Pulse Rate 79 80 81 Respiratory Rate 16 16 20 Blood Pressure 118/63 99/54 L 139/77 Pulse Oximetry 79 L 96 97 Oxygen Delivery Method Room Air Room Air BMI result Body Mass Index 23.2 Labs 04/17/25 13:06 04/17/25 13:06 Imaging Radiology Impressions: ITS Impressions Head CT 04/17/25 09:49 IMPRESSION: Stable exam. No acute intracranial findings. Electronically signed by: Massiel Tucker MD 04/17/2025 10:22 AM EDT RP Medications Medications Current Medications Acetaminophen (Acetaminophen 325 Mg Tablet) 650 mg PO Q6H PRN PRN Reason: Headache/Pain, Scale 1-10 Last Admin: 04/23/25 08:38 Dose: 650 mg Al Hydroxide/Mg Hydroxide (Magnesium Hydrox/Alum Hydrox 30 Ml Oral.Susp) 30 ml PO Q6H PRN PRN Reason: Heartburn/Nausea Last Admin: 04/27/25 14:00 Dose: 30 ml Calcium Carbonate (Calcium Carbonate 750 Mg Tab.Chew) 750 mg PO Q6H PRN PRN Reason: Heartburn Last Admin: 04/27/25 12:31 Dose: 750 mg Cariprazine (Cariprazine Hcl 1.5 Mg Capsule) 4.5 mg PO DAILY [facility] Last Admin: 05/03/25 08:16 Dose: 4.5 mg Docusate Sodium (Docusate Sodium 100 Mg Capsule) 100 mg PO BID PRN PRN Reason: Constipation Last Admin: 04/18/25 15:29 Dose: 100 mg Hydroxyzine HCl (Hydroxyzine Hcl 25 Mg Tablet) 25 mg PO Q6H PRN PRN Reason: mild anxiety Last Admin: 05/03/25 21:36 Dose: 25 mg Hydroxyzine HCl (Hydroxyzine Hcl 25 Mg Tablet) 25 mg PO BEDTIME [facility] Last Admin: 05/03/25 20:14 Dose: 25 mg Loperamide HCl (Loperamide Hcl 2 Mg Capsule) 2 mg PO Q6H PRN PRN Reason: Diarrhea Lorazepam (Lorazepam 1 Mg Tablet) 1 mg PO Q6H PRN PRN Reason: severe anxiety Last Admin: 05/03/25 15:25 Dose: 1 mg Lorazepam (Lorazepam 0.5 Mg Tablet) 0.5 mg PO BID [facility] Last Admin: 05/03/25 20:14 Dose: 0.5 mg Magnesium Hydroxide (Milk Of Magnesia 30 Ml Oral.Susp) 30 ml PO DAILY PRN PRN Reason: Constipation Last Admin: 04/21/25 17:12 Dose: 30 ml Melatonin (Melatonin 3 Mg Tablet) 6 mg PO BEDTIME [facility] Last Admin: 05/03/25 20:14 Dose: 6 mg Naloxone HCl (Naloxone Hcl 0.4 Mg/Ml Vial) 0.04 mg IVPUSH Q5M PRN PRN Reason: Excessive sedation or RR < 8 Naloxone HCl (Naloxone Hcl 0.4 Mg/Ml Vial) 0.04 mg IVPUSH Q5M PRN PRN Reason: Excessive sedation or RR < 8 Nicotine (Nicotine 21 Mg Patch.Td24) 21 mg TRANSDERMA DAILY PRN PRN Reason: nicotine craving Nicotine Polacrilex (Nicotine Polacrilex 2 Mg Gum) 2 mg BUCCAL Q2H PRN PRN Reason: Nicotine Cravings Olanzapine (Olanzapine 5 Mg Tablet) 5 mg PO BID PRN PRN Reason: agitation Last Admin: 04/22/25 13:50 Dose: 5 mg Olanzapine (Olanzapine 5 Mg Tablet) 5 mg PO BEDTIME [facility] Last Admin: 05/03/25 20:14 Dose: 5 mg Omeprazole (Omeprazole 40 Mg Capsule.Dr) 40 mg PO BID@0630,1630 [facility] Last Admin: 05/03/25 15:25 Dose: 40 mg Ondansetron HCl (Ondansetron Odt 4 Mg Tab.Rapdis) 4 mg TRANSLINGU Q6H PRN PRN Reason: Nausea and Vomiting Last Admin: 04/18/25 17:10 Dose: 4 mg Sucralfate (Sucralfate Oral Suspension 1 Gm/10 Ml Oral.Susp) 1 gm PO QIDACHS [facility] Last Admin: 05/03/25 20:15 Dose: 1 gm Thiamine HCl (Thiamine Hcl 100 Mg Tablet) 100 mg PO BID [facility] Last Admin: 05/03/25 20:14 Dose: 100 mg Allergies Allergies Allergy/AdvReac Type Severity Reaction Status Date / Time bee pollen Allergy Severe Anaphylaxis Verified 03/21/25 14:48 levofloxacin (From Levaquin) Allergy Severe Itching Verified 03/21/25 14:48 enoxaparin (From Lovenox) Allergy Intermediate Rash Verified 03/21/25 14:48 Seasonal Allergies Allergy Mild Runny Nose Verified 03/21/25 14:48 venlafaxine (From Effexor) Allergy Mild Constipatio Verified 03/21/25 14:48 n Penicillins Allergy Unknown Unknown Verified 03/21/25 14:48 Assessment & Plan Assessment & Plan (1) Bipolar 1 disorder, depressed, severe: Status: Acute Code(s): F31.4 - Bipolar disorder, current episode depressed, severe, without psychotic features (2) Catatonia: Status: Acute Code(s): F06.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 Discussing with family and outpatient providers how best to prevent relapse. Vraylar does seem to be effective well tolerated Patient educated on: diagnosis, medication risk/benefits and ECT Informed Consent: further education needed Reason for continued inpatient stay Substantial Risk for: inability to function, rapid decompensation and med/psych decompensation Time Spent With Patient Time: Total time managing care of this patient today ____ minutes.
--- NOTE | 2025-05-04 08:14 | HO.ECTPROC ---
ECT Procedure Note Diagnosis/Treatment Date of Service: 05/05/25 Diagnosis: Bipolar disorder Previous ECT Date: 04/27/25 Current Treatment Number: 10 Treatment: Series Interval Clinical Notes: Patient generally improved no cognitive or other side effects noted with ECT. Some residual irritability lidocaine was helpful to control pain of etomidate. See [facility] psych notes for further details Time: Total time managing care of this patient today ____ minutes. ECT Settings Device: THYMATRON DGx Electrode Placement: Bifrontal Program/Pulse Width: 0.50 Energy Percent: 100 Seizure Duration By EEG (in seconds): 31 Medications Administration General Anesthetic: Etomidate (16 mg) Muscle Relaxant: Succinylcholine (100 mg) Ancillary Medications Miscillaneous Medications: Propofol (30 mg) Airway Management Airway Management: Bag Mask Ventilation Treatment Recommendations No Changes Recommended: No change Notes: use lidocaine Pt Tolerated Procedure w/o Issue: Yes
[2025-05-04] MEDS: Sucralfate Oral Suspension 1 GM/10 ML ORAL.SUSP PO ×4 (09:45→20:13)
[2025-05-05 08:24] VITALS: BP 128/67; PULSE 82; RESP 17; TEMP 37.2; O2SAT 98
[2025-05-05] MEDS: Sucralfate Oral Suspension 1 GM/10 ML ORAL.SUSP PO ×4 (08:26→19:44)
[2025-05-05 19:42] VITALS: BP 112/58; PULSE 89; RESP 15; TEMP 36.8; O2SAT 94
[2025-05-06] VITALS (11 sets, daily range): BP systolic 117–148; BP diastolic 61–89; PULSE 81–95; RESP 12–22; TEMP 36.6–37.4; O2SAT 91–98
[2025-05-06] MEDS: Lidocaine 4 % Cream KIT 1 APPL TOPICAL (06:15)
--- NOTE | 2025-05-06 06:43 | P.CONAN_ITS ---
FORM[facility] Active Problems Active Problems: All Active Problems Bipolar II, mixed, severe with psychotic behavior (Acute) Catatonia (Acute) Delirium due to another medical condition (Acute) Delirium (Acute) Arthritis of right knee (Acute) Bipolar 1 disorder, depressed, severe (Acute) Elevated troponin (Acute) Chest discomfort (Acute) S/P cardiac catheterization (Acute) Varus deformity of knee (Acute) Osteoarthritis of left knee (Acute) Anxiety (Acute) GERD (gastroesophageal reflux disease) (Acute) Insomnia (Acute) Osteopenia (Acute) Murmur, cardiac (Acute) Status post total knee replacement, left (Acute) Acute deep vein thrombosis (DVT) of left tibial vein (Chronic) Past Medical History Medical History Delirium due to another medical condition History of skin cancer Hx of bladder problems VITO (generalized anxiety disorder) Murmur, cardiac Hx of thyroid nodule Osteopenia Hx of skin cancer, basal cell Seasonal allergies Insomnia Constipation GERD (gastroesophageal reflux disease) Anxiety History of electroconvulsive therapy Bipolar 1 disorder Functional capacity: independent ambulation Family History Family History Mother Basal cell carcinoma (BCC) in situ of skin Osteoporosis Hyperlipidemia Father CAD (coronary artery disease) Alcoholism Sister Osteoporosis Depression Brother Cancer of tongue Cancer of skin Family history of problems with anesthesia: No Surgical History Surgical History Hx of colonoscopy H/O elbow surgery History of back surgery History of Problems with Anesthesia: No Social History Social History Household Members: None Household Members Other:: brought in from [facility] Housing: Apartment Are you a primary director of patient care to a significant other at home: No Do you presently have visiting nurse or other home services: Yes Comment: 5 minute Patient Tobacco Use Status: Never used Tobacco Tobacco use type: Cigarette Years Smoked: 30+, now vapes e-Cigarette/Vaping Use: Currently Using Second Hand Smoke Exposure: No Substance Use Type: Crack/Cocaine Currently Displaying Signs/Symptoms of Drug Intoxication Withdrawal: No Have you been hit, kicked, punched, or otherwise hurt by someone within the past year? If so, by whom?: No Do you feel safe in your current relationship?: No Are you made to feel afraid or neglected: No Spiritual Healthcare Practices: No Jehovah'S Witness Healthcare Practices: No Cultural Healthcare Practices: No Are you DNR?: No Advance Directives: Yes Advance Directives on File: Yes Advance Directives Date on File: 06/12/24 Do you have thoughts of harming others: None Do you have a plan to hurt others: No Plan Recently lost weight without trying: Yes How much weight loss: Unsure Eating poorly because of decreased appetite: No Nutrition screen score: 4 Nutrition Risks: No Nutritional Risk Patient : No : No Poor oral hygiene: No service: No Current occupational status: unemployed and retired 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 Sexual orientation: Straight/Heterosexual Meds Allergies Allergy/AdvReac Type Severity Reaction Status Date / Time bee pollen Allergy Severe Anaphylaxis Verified 03/21/25 14:48 levofloxacin (From Levaquin) Allergy Severe Itching Verified 03/21/25 14:48 enoxaparin (From Lovenox) Allergy Intermediate Rash Verified 03/21/25 14:48 Seasonal Allergies Allergy Mild Runny Nose Verified 03/21/25 14:48 venlafaxine (From Effexor) Allergy Mild Constipatio Verified 03/21/25 14:48 n Penicillins Allergy Unknown Unknown Verified 03/21/25 14:48 Active Medications: Current Medications Acetaminophen (Acetaminophen 325 Mg Tablet) 650 mg PO Q6H PRN PRN Reason: Headache/Pain, Scale 1-10 Last Admin: 04/23/25 08:38 Dose: 650 mg Al Hydroxide/Mg Hydroxide (Magnesium Hydrox/Alum Hydrox 30 Ml Oral.Susp) 30 ml PO Q6H PRN PRN Reason: Heartburn/Nausea Last Admin: 04/27/25 14:00 Dose: 30 ml Calcium Carbonate (Calcium Carbonate 750 Mg Tab.Chew) 750 mg PO Q6H PRN PRN Reason: Heartburn Last Admin: 04/27/25 12:31 Dose: 750 mg Cariprazine (Cariprazine Hcl 1.5 Mg Capsule) 4.5 mg PO DAILY [facility] Last Admin: 05/05/25 08:27 Dose: 4.5 mg Docusate Sodium (Docusate Sodium 100 Mg Capsule) 100 mg PO BID PRN PRN Reason: Constipation Last Admin: 04/18/25 15:29 Dose: 100 mg Hydroxyzine HCl (Hydroxyzine Hcl 25 Mg Tablet) 25 mg PO Q6H PRN PRN Reason: mild anxiety Last Admin: 05/05/25 12:55 Dose: 25 mg Hydroxyzine HCl (Hydroxyzine Hcl 25 Mg Tablet) 25 mg PO BEDTIME [facility] Last Admin: 05/05/25 19:43 Dose: 25 mg Loperamide HCl (Loperamide Hcl 2 Mg Capsule) 2 mg PO Q6H PRN PRN Reason: Diarrhea Lorazepam (Lorazepam 1 Mg Tablet) 1 mg PO Q6H PRN PRN Reason: severe anxiety Last Admin: 05/03/25 15:25 Dose: 1 mg Lorazepam (Lorazepam 0.5 Mg Tablet) 0.5 mg PO BID [facility] Last Admin: 05/05/25 19:43 Dose: 0.5 mg Magnesium Hydroxide (Milk Of Magnesia 30 Ml Oral.Susp) 30 ml PO DAILY PRN PRN Reason: Constipation Last Admin: 04/21/25 17:12 Dose: 30 ml Melatonin (Melatonin 3 Mg Tablet) 6 mg PO BEDTIME [facility] Last Admin: 05/05/25 19:43 Dose: 6 mg Naloxone HCl (Naloxone Hcl 0.4 Mg/Ml Vial) 0.04 mg IVPUSH Q5M PRN PRN Reason: Excessive sedation or RR < 8 Nicotine (Nicotine 21 Mg Patch.Td24) 21 mg TRANSDERMA DAILY PRN PRN Reason: nicotine craving Nicotine Polacrilex (Nicotine Polacrilex 2 Mg Gum) 2 mg BUCCAL Q2H PRN PRN Reason: Nicotine Cravings Olanzapine (Olanzapine 5 Mg Tablet) 5 mg PO BID PRN PRN Reason: agitation Last Admin: 04/22/25 13:50 Dose: 5 mg Omeprazole (Omeprazole 40 Mg Capsule.Dr) 40 mg PO BID@0630,1630 [facility] Last Admin: 05/05/25 15:43 Dose: 40 mg Ondansetron HCl (Ondansetron Odt 4 Mg Tab.Rapdis) 4 mg TRANSLINGU Q6H PRN PRN Reason: Nausea and Vomiting Last Admin: 04/18/25 17:10 Dose: 4 mg Quetiapine Fumarate (Quetiapine Fumarate 25 Mg Tablet) 25 mg PO BEDTIME [facility] Sucralfate (Sucralfate Oral Suspension 1 Gm/10 Ml Oral.Susp) 1 gm PO QIDACHS [facility] Last Admin: 05/05/25 19:44 Dose: 1 gm Thiamine HCl (Thiamine Hcl 100 Mg Tablet) 100 mg PO BID [facility] Last Admin: 05/05/25 19:43 Dose: 100 mg Home Medications ?Medication ?Instructions ?Recorded ?Confirmed ?Last Taken ?Type docusate sodium 100 mg capsule 1 cap PO BID PRN Consti pation 03/22/25 04/14/25 Unknown History loperamide 2 mg tablet 2 mg PO Q6H PRN Diarrhea 04/14/25 Unknown History lorazepam 0.5 mg tablet 0.5 mg PO TID 03/22/2504/14 Unknown History melatonin 3 mg tablet 3 mg PO BEDTIME PRN Sleep 04/14/25 Unknown History ondansetron HCl 4 mg tablet 4 mg PO Q6H PRN Nausea And Vomiting 03/22/25 04/14/25 Unknown History pantoprazole 40 mg tablet,delayed 40 mg PO DAILY@0630 03/22/25 04/14/25 Unknown History release Exam Height,Weight and Vital Signs: Height 5 ft 7 in Weight 67.222 kg Last Vital Signs Temp 97.8 F 05/06/25 06:30 Pulse 85 05/06/25 06:30 Resp 22 H 05/06/25 06:30 BP 117/65 05/06/25 06:30 Pulse Ox 96 05/06/25 06:30 O2 Del Method Room Air 05/06/25 06:30 O2 Flow Rate 2 05/04/25 08:25 Pertinent Lab Results Pertinent Lab Results: Laboratory Tests 04/16/25 04/17/25 04/17/25 12:17 07:09 13:06 WBC 7.1 RBC 3.81 L Hgb 11.5 L Hct 35.7 L MCV 93.7 MCH 30.2 MCHC 32.2 RDW 15.1 Plt Count 476 H D MPV 8.4 L Immature Gran % (Auto) 1.0 H Neut % (Auto) 57.0 Lymph % (Auto) 31.7 [place] % (Auto) 8.6 Eos % (Auto) 1.0 Baso % (Auto) 0.7 Lymph # (Auto) 2.2 [place] # (Auto) 0.6 Eos # (Auto) 0.1 Baso # (Auto) 0.1 Abs Immat Gran (auto) 0.07 H Absolute Neuts (auto) 4.0 Absolute Nucleated RBC 0.000 Nucleated RBC % (auto) 0.0 Sodium Cancelled 143 Potassium Cancelled 4.2 Chloride Cancelled 111 H Carbon Dioxide Cancelled 25 Anion Gap Cancelled 11 L BUN Cancelled 13 Creatinine Cancelled 0.61 Estim Creat Clear Calc Cancelled 87.0 Estimated GFR Cancelled > 60 POC Glucose 99 Random Glucose Cancelled 78 Estimat Average Glucose Cancelled Hemoglobin A1c % Cancelled Calcium Cancelled 9.2 Total Bilirubin Cancelled AST Cancelled ALT Cancelled Alkaline Phosphatase Cancelled Troponin I High Sens Total Protein Cancelled Albumin Cancelled Triglycerides Cancelled Cholesterol Cancelled LDL Cholesterol, Calc Cancelled HDL Cholesterol Cancelled Vitamin B12 741 Folate 9.6 TSH Cancelled Free T4 Cancelled Urine Color Urine Appearance Urine pH Ur Specific [place] Urine Protein Urine Glucose (UA) Urine Ketones Urine Blood Urine Nitrite Ur Leukocyte Esterase Urine RBC Urine WBC Ur Squamous Epith Cells Calcium Oxalate Crystal Other Crystals Urine Bacteria Hyaline Casts 04/17/25 04/20/25 15:10 15:39 WBC RBC Hgb Hct MCV MCH MCHC RDW Plt Count MPV Immature Gran % (Auto) Neut % (Auto) Lymph % (Auto) [place] % (Auto) Eos % (Auto) Baso % (Auto) Lymph # (Auto) [place] # (Auto) Eos # (Auto) Baso # (Auto) Abs Immat Gran (auto) Absolute Neuts (auto) Absolute Nucleated RBC Nucleated RBC % (auto) Sodium Potassium Chloride Carbon Dioxide Anion Gap BUN Creatinine Estim Creat Clear Calc Estimated GFR POC Glucose Random Glucose Estimat Average Glucose Hemoglobin A1c % Calcium Total Bilirubin AST ALT Alkaline Phosphatase Troponin I High Sens 3.2 Total Protein Albumin Triglycerides Cholesterol LDL Cholesterol, Calc HDL Cholesterol Vitamin B12 Folate TSH Free T4 Urine Color Yellow Urine Appearance Clear Urine pH 6.0 Ur Specific [place] 1.025 Urine Protein Negative Urine Glucose (UA) Negative Urine Ketones Negative Urine Blood Negative Urine Nitrite Negative Ur Leukocyte Esterase Trace H Urine RBC 0-2 Urine WBC 0-5 Ur Squamous Epith Cells 3-5 Calcium Oxalate Crystal Present Other Crystals Present Urine Bacteria None Seen Hyaline Casts 0-2 Airway Mallampati Class: II TM Dist: >3cm Neck ROM: Full Partial: Upper Heart: rrr Lungs: cta Assessment and Plan Assessment Anesthesia Assessment: Anesthesia Plan Discussed and Chart Reviewed Final Anesthetic Review Family History of Problems with Anesthesia: No History of Problems with Anesthesia: No NPO: Yes ASA Class: III Final Preanesthetic Review: No Changes in Pt Med Stat, Meds/Allgs Chart Reviewed and Consent Obtained/Reviewed Patient Risk: Intermediate Procedure Risk: Intermediate Anesthetic Plan Anesthetic Plan: GA Disposition: Standard PACU
--- NOTE | 2025-05-06 07:01 | MHC.SHP ---
Pre-Procedural Eval Section A - 24 Hr Update-Section A only Date of Service: 05/06/25 The patient is an INPATIENT: Yes Changes since office visit: Yes Changes in Medication and Yes Patient answered all questions; No Cold of Flu in the past 2 weeks and No New Medical Problems The patient has been examined within 24 hours of the surgical procedure. The History & Physical has been completed within 30 days and I have reviewed it.: Yes Section B - Complete if H&P > 30 days Chief Complaint: catatonia /bipolar depression Allergies: Allergies Allergy/AdvReac Type Severity Reaction Status Date / Time bee pollen Allergy Severe Anaphylaxis Verified 03/21/25 14:48 levofloxacin (From Levaquin) Allergy Severe Itching Verified 03/21/25 14:48 enoxaparin (From Lovenox) Allergy Intermediate Rash Verified 03/21/25 14:48 Seasonal Allergies Allergy Mild Runny Nose Verified 03/21/25 14:48 venlafaxine (From Effexor) Allergy Mild Constipatio Verified 03/21/25 14:48 n Penicillins Allergy Unknown Unknown Verified 03/21/25 14:48 Plan Diagnosis/Plan: Unchanged I have reviewed the history and physical and performed a pertinent physical examination on my patient. No changes have occurred unless specified. Time Spent With Patient Time: Total time managing care of this patient today ____ minutes.
--- NOTE | 2025-05-06 07:02 | HO.ECTPROC ---
ECT Procedure Note Diagnosis/Treatment Date of Service: 05/06/25 Diagnosis: Bipolar disorder Previous ECT Date: 04/03/25 Current Treatment Number: 11 Treatment: Series Interval Clinical Notes: Patient generally improved no cognitive or other side effects noted with ECT. Some residual irritability lidocaine was helpful to control pain of etomidate.Will hold further ect for now start lithium See [facility] psych notes for further details Time: Total time managing care of this patient today ____ minutes. ECT Settings Device: THYMATRON DGx Electrode Placement: Bifrontal Program/Pulse Width: 0.50 Energy Percent: 100 Seizure Duration By EEG (in seconds): 18 Medications Administration General Anesthetic: Etomidate (16 mg) Muscle Relaxant: Succinylcholine (100 mg) Ancillary Medications Miscillaneous Medications: Propofol (30 mg) Airway Management Airway Management: Bag Mask Ventilation Treatment Recommendations No Changes Recommended: No change Notes: lidocaine used with good effect Pt Tolerated Procedure w/o Issue: Yes
[2025-05-06] MEDS: Sucralfate Oral Suspension 1 GM/10 ML ORAL.SUSP PO ×4 (09:00→20:23)
[2025-05-07 07:43] LABS: MANUAL DIFF FLAG NO
[2025-05-07 07:46] LABS: Hematocrit 36.4 % (37.0-47.0); Hemoglobin 11.7 g/dl (12.0-16.0); Imm Gran Abs Auto 0.03 X10*3/uL (0.00-0.03); Imm Gran Pct Auto 0.6 % (0.0-0.4); Lymphocytes Absolute Auto 1.7 X10*3/uL (1.2-4.9); Mean Corpuscular HGB Conc 32.1 g/dl (31.0-35.0); Mean Corpuscular Hemoglobin 30.3 pg (27.0-33.0); Mean Corpuscular Volume 94.3 fL (80.0-98.0); NRBC Abs Auto 0.000 X10*3/uL (0.0-0.012); NRBC Pct Auto 0.0 /100WBC (0.0-0.2); Platelet Count 258 X10*3/uL (160-400); Red Blood Count 3.86 X10*6/uL (4.20-5.50); White Blood Count 5.2 X10*3/uL (4.8-10.8)
[2025-05-07 07:55] VITALS: BP 110/62; PULSE 87; RESP 18; TEMP 36.2; O2SAT 96
[2025-05-07 08:11] LABS: Alanine Aminotransferase 52 U/L (0-31); Albumin Level 3.9 g/dL (3.5-5.0); Alkaline Phosphatase 89 U/L (39-117); Anion Gap 12 (12-20); Aspartate Amino Transferase 45 U/L (5-31); Blood Urea Nitrogen 19 mg/dL (9-16); Calcium 9.3 mg/dL (8.4-10.2); Carbon Dioxide 25 mmol/L (22-29); Chloride 105 mmol/L (96-108); Creatinine Clr Calc Pharmacy 80.4; Estimated Glomerular Filt Rate > 60; Potassium 4.0 mmol/L (3.3-5.1); Sodium 138 mmol/L (135-145); Total Protein 6.6 g/dL (6.5-8.0)
[2025-05-07] MEDS: Sucralfate Oral Suspension 1 GM/10 ML ORAL.SUSP PO ×4 (08:39→20:11)
[2025-05-07 14:17] VITALS: BMI 23.5
[2025-05-07 20:09] VITALS: BP 113/62; PULSE 80; RESP 16; TEMP 36.1; O2SAT 98
--- NOTE | 2025-05-07 20:25 | P.PNPSI_ITS ---
Subjective Subjective Date of Service: 05/07/25 Reason For Visit: catatonia /bipolar depression Subjective Notes: Conditional Voluntary Healthcare Proxy: Yes Interim History: Patient seen psychiatric follow-up. Patient has been out in the milieu tolerated ECT from 05/06/2025 with minimal confusion. Patient agreeable to lithium trial. Sleep and appetite have been adequate Medication Compliance: Yes Side effects from medications: No Review of Systems Acute medical concerns: No Mental Status Exam Mental Status Exam Patient Appearance: Appropriate Patient Orientation: Person, Place and Situation Level of Consciousness: Awake Patient Behavior: Appropriate Mood Description: Apprehensive Affect Description: Labile (less labile) and Apprehensive Speech Pattern: Clear Memory Description: Episodic Impaired Hallucinations: None Delusions: Not Present Thought Process: Rumination Thought Content: positive for [place] Depressive Symptoms: Increased Anxiety Judgement: Fair (Improving judgment better able to take in information regarding events prior to admission agreeable to lithium) Diagnostics Vital Signs (24Hr): Vital Signs - 24 hr 05/07/25 07:55 05/07/25 20:09 Temperature 97.2 F 97 F Pulse Rate 87 80 Respiratory Rate 18 16 Blood Pressure 110/62 113/62 Pulse Oximetry 96 98 Oxygen Delivery Method Room Air BMI result Body Mass Index 23.5 Labs 05/07/25 07:08 05/07/25 07:08 Labs: Laboratory Results - last 48 hr 05/07/25 07:08 WBC 5.2 RBC 3.86 L Hgb 11.7 L Hct 36.4 L MCV 94.3 MCH 30.3 MCHC 32.1 RDW 15.8 Plt Count 258 D MPV 8.4 L Immature Gran % (Auto) 0.6 H Neut % (Auto) 55.5 Lymph % (Auto) 32.9 [place] % (Auto) 7.9 Eos % (Auto) 2.5 Baso % (Auto) 0.6 Lymph # (Auto) 1.7 [place] # (Auto) 0.4 Eos # (Auto) 0.1 Baso # (Auto) 0.0 Abs Immat Gran (auto) 0.03 Absolute Neuts (auto) 2.9 Absolute Nucleated RBC 0.000 Nucleated RBC % (auto) 0.0 Sodium 138 Potassium 4.0 Chloride 105 Carbon Dioxide 25 Anion Gap 12 BUN 19 H Creatinine 0.66 Estim Creat Clear Calc 80.4 Estimated GFR > 60 Random Glucose 102 Estimat Average Glucose 97 Hemoglobin A1c % 5.0 Calcium 9.3 Total Bilirubin 0.4 AST 45 H ALT 52 H Alkaline Phosphatase 89 Total Protein 6.6 Albumin 3.9 TSH 0.43 Imaging Radiology Impressions: ITS Impressions Head CT 04/17/25 09:49 IMPRESSION: Stable exam. No acute intracranial findings. Electronically signed by: Massiel Tucker MD 04/17/2025 10:22 AM EDT RP Medications Medications Current Medications Acetaminophen (Acetaminophen 325 Mg Tablet) 650 mg PO Q6H PRN PRN Reason: Headache/Pain, Scale 1-10 Last Admin: 04/23/25 08:38 Dose: 650 mg Al Hydroxide/Mg Hydroxide (Magnesium Hydrox/Alum Hydrox 30 Ml Oral.Susp) 30 ml PO Q6H PRN PRN Reason: Heartburn/Nausea Last Admin: 04/27/25 14:00 Dose: 30 ml Calcium Carbonate (Calcium Carbonate 750 Mg Tab.Chew) 750 mg PO Q6H PRN PRN Reason: Heartburn Last Admin: 04/27/25 12:31 Dose: 750 mg Docusate Sodium (Docusate Sodium 100 Mg Capsule) 100 mg PO BID PRN PRN Reason: Constipation Last Admin: 04/18/25 15:29 Dose: 100 mg Hydroxyzine HCl (Hydroxyzine Hcl 25 Mg Tablet) 25 mg PO Q6H PRN PRN Reason: mild anxiety Last Admin: 05/06/25 14:39 Dose: 25 mg Hydroxyzine HCl (Hydroxyzine Hcl 25 Mg Tablet) 25 mg PO BEDTIME [facility] Last Admin: 05/07/25 20:11 Dose: 25 mg [place] Carbonate ([place] Carbonate Er 300 Mg Tablet.Er) 300 mg PO BEDTIME [facility] Last Admin: 05/07/25 20:11 Dose: 300 mg Loperamide HCl (Loperamide Hcl 2 Mg Capsule) 2 mg PO Q6H PRN PRN Reason: Diarrhea Lorazepam (Lorazepam 1 Mg Tablet) 1 mg PO Q6H PRN PRN Reason: severe anxiety Last Admin: 05/03/25 15:25 Dose: 1 mg Lorazepam (Lorazepam 0.5 Mg Tablet) 0.5 mg PO BID [facility] Last Admin: 05/07/25 20:11 Dose: 0.5 mg Magnesium Hydroxide (Milk Of Magnesia 30 Ml Oral.Susp) 30 ml PO DAILY PRN PRN Reason: Constipation Last Admin: 04/21/25 17:12 Dose: 30 ml Melatonin (Melatonin 3 Mg Tablet) 6 mg PO BEDTIME [facility] Last Admin: 05/07/25 20:11 Dose: 6 mg Naloxone HCl (Naloxone Hcl 0.4 Mg/Ml Vial) 0.04 mg IVPUSH Q5M PRN PRN Reason: Excessive sedation or RR < 8 Nicotine (Nicotine 21 Mg Patch.Td24) 21 mg TRANSDERMA DAILY PRN PRN Reason: nicotine craving Nicotine Polacrilex (Nicotine Polacrilex 2 Mg Gum) 2 mg BUCCAL Q2H PRN PRN Reason: Nicotine Cravings Patient Own Medication ( Cariprazine [Vraylar ] 4.5mg Capsule) 1 each PO DAILY [facility] Last Admin: 05/07/25 08:39 Dose: 1 each Olanzapine (Olanzapine 5 Mg Tablet) 5 mg PO BID PRN PRN Reason: agitation Last Admin: 04/22/25 13:50 Dose: 5 mg Omeprazole (Omeprazole 40 Mg Capsule.Dr) 40 mg PO BID@0630,1630 [facility] Last Admin: 05/07/25 16:49 Dose: 40 mg Ondansetron HCl (Ondansetron Odt 4 Mg Tab.Rapdis) 4 mg TRANSLINGU Q6H PRN PRN Reason: Nausea and Vomiting Last Admin: 05/06/25 20:34 Dose: 4 mg Quetiapine Fumarate (Quetiapine Fumarate 25 Mg Tablet) 25 mg PO BEDTIME [facility] Last Admin: 05/07/25 20:11 Dose: 25 mg Sucralfate (Sucralfate Oral Suspension 1 Gm/10 Ml Oral.Susp) 1 gm PO QIDACHS [facility] Last Admin: 05/07/25 20:11 Dose: 1 gm Thiamine HCl (Thiamine Hcl 100 Mg Tablet) 100 mg PO BID [facility] Last Admin: 05/07/25 20:10 Dose: 100 mg Allergies Allergies Allergy/AdvReac Type Severity Reaction Status Date / Time bee pollen Allergy Severe Anaphylaxis Verified 03/21/25 14:48 levofloxacin (From Levaquin) Allergy Severe Itching Verified 03/21/25 14:48 enoxaparin (From Lovenox) Allergy Intermediate Rash Verified 03/21/25 14:48 Seasonal Allergies Allergy Mild Runny Nose Verified 03/21/25 14:48 venlafaxine (From Effexor) Allergy Mild Constipatio Verified 03/21/25 14:48 n Penicillins Allergy Unknown Unknown Verified 03/21/25 14:48 Assessment & Plan Assessment & Plan (1) Bipolar 1 disorder, depressed, severe: Status: Acute Code(s): F31.4 - Bipolar disorder, current episode depressed, severe, without psychotic features (2) Catatonia: Status: Acute Code(s): F06.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 Discussing with family and outpatient providers how best to prevent relapse. Vraylar does seem to be effective well tolerated 05/07/2025 Tolerating Vraylar lithium started risks benefits alternatives reviewed patient's labs generally unremarkable minimally elevated LFTs. TSH renal function unremarkable Patient educated on: diagnosis and medication risk/benefits Informed Consent: further education needed Reason for continued inpatient stay Substantial Risk for: inability to function and rapid decompensation Time Spent With Patient Time: Total time managing care of this patient today ____ minutes.
[2025-05-08 08:00] VITALS: BP 119/72; PULSE 76; RESP 16; TEMP 36.9; O2SAT 98
[2025-05-08] MEDS: Sucralfate Oral Suspension 1 GM/10 ML ORAL.SUSP PO ×4 (08:34→20:34)
[2025-05-08 20:00] VITALS: BP 141/71; PULSE 84; RESP 16; TEMP 37.2; O2SAT 96
--- NOTE | 2025-05-08 23:03 | P.PNPSI_ITS ---
Subjective Subjective Date of Service: 05/08/25 Reason For Visit: catatonia /bipolar depression Subjective Notes: Conditional Voluntary Healthcare Proxy: Yes Interim History: Patient has been not overly depressed or manic. Social and engaged on the unit. Patient has started lithium Medication Compliance: Yes Review of Systems Acute medical concerns: No Mental Status Exam Mental Status Exam Patient Appearance: Appropriate Patient Orientation: Person, Place and Situation Level of Consciousness: Awake Patient Behavior: Appropriate Mood Description: Apprehensive Affect Description: Labile (less labile) and Apprehensive Speech Pattern: Clear Memory Description: Episodic Impaired Hallucinations: None Delusions: Not Present Thought Process: Rumination Thought Content: positive for [place] Depressive Symptoms: Increased Anxiety Judgement: Fair (Improving judgment better able to take in information regarding events prior to admission agreeable to lithium) Diagnostics Vital Signs (24Hr): Vital Signs - 24 hr 05/08/25 08:00 Temperature 98.4 F Pulse Rate 76 Respiratory Rate 16 Blood Pressure 119/72 Pulse Oximetry 98 Oxygen Delivery Method Room Air BMI result Body Mass Index 23.5 Labs 05/07/25 07:08 05/07/25 07:08 Labs: Laboratory Results - last 48 hr 05/07/25 07:08 WBC 5.2 RBC 3.86 L Hgb 11.7 L Hct 36.4 L MCV 94.3 MCH 30.3 MCHC 32.1 RDW 15.8 Plt Count 258 D MPV 8.4 L Immature Gran % (Auto) 0.6 H Neut % (Auto) 55.5 Lymph % (Auto) 32.9 [place] % (Auto) 7.9 Eos % (Auto) 2.5 Baso % (Auto) 0.6 Lymph # (Auto) 1.7 [place] # (Auto) 0.4 Eos # (Auto) 0.1 Baso # (Auto) 0.0 Abs Immat Gran (auto) 0.03 Absolute Neuts (auto) 2.9 Absolute Nucleated RBC 0.000 Nucleated RBC % (auto) 0.0 Sodium 138 Potassium 4.0 Chloride 105 Carbon Dioxide 25 Anion Gap 12 BUN 19 H Creatinine 0.66 Estim Creat Clear Calc 80.4 Estimated GFR > 60 Random Glucose 102 Estimat Average Glucose 97 Hemoglobin A1c % 5.0 Calcium 9.3 Total Bilirubin 0.4 AST 45 H ALT 52 H Alkaline Phosphatase 89 Total Protein 6.6 Albumin 3.9 TSH 0.43 Imaging Radiology Impressions: ITS Impressions Head CT 04/17/25 09:49 IMPRESSION: Stable exam. No acute intracranial findings. Electronically signed by: Massiel Tucker MD 04/17/2025 10:22 AM EDT RP Medications Medications Current Medications Acetaminophen (Acetaminophen 325 Mg Tablet) 650 mg PO Q6H PRN PRN Reason: Headache/Pain, Scale 1-10 Last Admin: 04/23/25 08:38 Dose: 650 mg Al Hydroxide/Mg Hydroxide (Magnesium Hydrox/Alum Hydrox 30 Ml Oral.Susp) 30 ml PO Q6H PRN PRN Reason: Heartburn/Nausea Last Admin: 04/27/25 14:00 Dose: 30 ml Calcium Carbonate (Calcium Carbonate 750 Mg Tab.Chew) 750 mg PO Q6H PRN PRN Reason: Heartburn Last Admin: 04/27/25 12:31 Dose: 750 mg Docusate Sodium (Docusate Sodium 100 Mg Capsule) 100 mg PO BID PRN PRN Reason: Constipation Last Admin: 04/18/25 15:29 Dose: 100 mg Hydroxyzine HCl (Hydroxyzine Hcl 25 Mg Tablet) 25 mg PO Q6H PRN PRN Reason: mild anxiety Last Admin: 05/06/25 14:39 Dose: 25 mg Hydroxyzine HCl (Hydroxyzine Hcl 25 Mg Tablet) 25 mg PO BEDTIME [facility] Last Admin: 05/08/25 20:35 Dose: 25 mg [place] Carbonate ([place] Carbonate Er 300 Mg Tablet.Er) 300 mg PO BEDTIME [facility] Last Admin: 05/08/25 20:35 Dose: 300 mg Loperamide HCl (Loperamide Hcl 2 Mg Capsule) 2 mg PO Q6H PRN PRN Reason: Diarrhea Lorazepam (Lorazepam 1 Mg Tablet) 1 mg PO Q6H PRN PRN Reason: severe anxiety Last Admin: 05/03/25 15:25 Dose: 1 mg Lorazepam (Lorazepam 0.5 Mg Tablet) 0.5 mg PO BID [facility] Last Admin: 05/08/25 20:35 Dose: 0.5 mg Magnesium Hydroxide (Milk Of Magnesia 30 Ml Oral.Susp) 30 ml PO DAILY PRN PRN Reason: Constipation Last Admin: 04/21/25 17:12 Dose: 30 ml Melatonin (Melatonin 3 Mg Tablet) 6 mg PO BEDTIME [facility] Last Admin: 05/08/25 20:34 Dose: 6 mg Naloxone HCl (Naloxone Hcl 0.4 Mg/Ml Vial) 0.04 mg IVPUSH Q5M PRN PRN Reason: Excessive sedation or RR < 8 Nicotine (Nicotine 21 Mg Patch.Td24) 21 mg TRANSDERMA DAILY PRN PRN Reason: nicotine craving Nicotine Polacrilex (Nicotine Polacrilex 2 Mg Gum) 2 mg BUCCAL Q2H PRN PRN Reason: Nicotine Cravings Patient Own Medication ( Cariprazine [Vraylar ] 4.5mg Capsule) 1 each PO DAILY [facility] Last Admin: 05/08/25 08:35 Dose: 1 each Olanzapine (Olanzapine 5 Mg Tablet) 5 mg PO BID PRN PRN Reason: agitation Last Admin: 04/22/25 13:50 Dose: 5 mg Omeprazole (Omeprazole 40 Mg Capsule.Dr) 40 mg PO BID@0630,1630 [facility] Last Admin: 05/08/25 16:26 Dose: 40 mg Ondansetron HCl (Ondansetron Odt 4 Mg Tab.Rapdis) 4 mg TRANSLINGU Q6H PRN PRN Reason: Nausea and Vomiting Last Admin: 05/06/25 20:34 Dose: 4 mg Quetiapine Fumarate (Quetiapine Fumarate 25 Mg Tablet) 25 mg PO BEDTIME [facility] Last Admin: 05/08/25 20:35 Dose: 25 mg Sucralfate (Sucralfate Oral Suspension 1 Gm/10 Ml Oral.Susp) 1 gm PO QIDACHS [facility] Last Admin: 05/08/25 20:34 Dose: 1 gm Thiamine HCl (Thiamine Hcl 100 Mg Tablet) 100 mg PO BID [facility] Last Admin: 05/08/25 20:34 Dose: 100 mg Allergies Allergies Allergy/AdvReac Type Severity Reaction Status Date / Time bee pollen Allergy Severe Anaphylaxis Verified 03/21/25 14:48 levofloxacin (From Levaquin) Allergy Severe Itching Verified 03/21/25 14:48 enoxaparin (From Lovenox) Allergy Intermediate Rash Verified 03/21/25 14:48 Seasonal Allergies Allergy Mild Runny Nose Verified 03/21/25 14:48 venlafaxine (From Effexor) Allergy Mild Constipatio Verified 03/21/25 14:48 n Penicillins Allergy Unknown Unknown Verified 03/21/25 14:48 Assessment & Plan Assessment & Plan (1) Bipolar 1 disorder, depressed, severe: Status: Acute Code(s): F31.4 - Bipolar disorder, current episode depressed, severe, without psychotic features (2) Catatonia: Status: Acute Code(s): F06.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 Discussing with family and outpatient providers how best to prevent relapse. Vraylar does seem to be effective well tolerated 05/07/2025 Tolerating Vraylar lithium started risks benefits alternatives reviewed patient's labs generally unremarkable minimally elevated LFTs. TSH renal function unremarkable 05/08/2025 Increase lithium to 450 mg continue Vraylar discharge planning Patient educated on: medication risk/benefits Informed Consent: further education needed Reason for continued inpatient stay Substantial Risk for: inability to function
[2025-05-09 08:00] VITALS: BP 117/60; PULSE 91; RESP 18; TEMP 36.7; O2SAT 98
[2025-05-09] MEDS: Sucralfate Oral Suspension 1 GM/10 ML ORAL.SUSP PO ×4 (08:23→20:46)
[2025-05-09 20:00] VITALS: BP 123/67; PULSE 87; RESP 17; TEMP 36.6; O2SAT 94
--- NOTE | 2025-05-09 21:32 | HO.PSYCHPN ---
Subjective Subjective Date of Service: 05/09/25 Reason For Visit: catatonia /bipolar depression Subjective Notes: Conditional Voluntary Healthcare Proxy: Yes Guardianship: No Medical Problems Affecting Mental Status: No Interim History: Medical record and nursing notes reviewed; case discussed during rounds with team/nursing staff, and met with patient for supportive therapy/psychoeducation, as well as medication management. Meet with patient in sensory room, report sleep and appetite have been good. Less anxious and depressed. She denies side effects. Compliant with meds. She is looking forward to going home but they suggest assisted living but I want to go back to my apartment. Denies any safety concerns. Visible, pleasant, calm and cooperative. Medication Compliance: Yes Side effects from medications: No Attending Groups: Intermittent Review of Systems Acute medical concerns: No Medical Review of Systems: unchanged Review of Systems Review of Systems Constitutional: Denies fatigue and Denies fever(s) Cardiovascular: Denies chest pain and Denies dyspnea Respiratory: Denies dyspnea Gastrointestinal: Denies abdominal pain Psychiatric: denies suicidal ideation Endocrine: Denies fatigue Yes all other systems are reviewed and are negative Mental Status Exam Mental Status Exam Narrative: Patient is A+O x4, future focus. Less anxious and depression, less racing thoughts, calm, pleasant, and cooperative. Better concentration. Engaged in full conversation without any issues. Thought process is more organized and linear. Thought content is on treatment. No SI/SIB/HI/AVH. Fair judgment and insight. Speech is less pressure. Diagnostics Vital Signs (24Hr): Vital Signs - 24 hr 05/09/25 08:00 05/09/25 20:00 Temperature 98.1 F 97.8 F Pulse Rate 91 87 Respiratory Rate 18 17 Blood Pressure 117/60 123/67 Pulse Oximetry 98 94 Oxygen Delivery Method Room Air Room Air BMI result Body Mass Index 23.5 Labs 05/07/25 07:08 05/07/25 07:08 Imaging Radiology Impressions: ITS Impressions Head CT 04/17/25 09:49 IMPRESSION: Stable exam. No acute intracranial findings. Electronically signed by: Massiel Tucker MD 04/17/2025 10:22 AM EDT Medications Medications Current Medications Acetaminophen (Acetaminophen 325 Mg Tablet) 650 mg PO Q6H PRN PRN Reason: Headache/Pain, Scale 1-10 Last Admin: 04/23/25 08:38 Dose: 650 mg Al Hydroxide/Mg Hydroxide (Magnesium Hydrox/Alum Hydrox 30 Ml Oral.Susp) 30 ml PO Q6H PRN PRN Reason: Heartburn/Nausea Last Admin: 04/27/25 14:00 Dose: 30 ml Calcium Carbonate (Calcium Carbonate 750 Mg Tab.Chew) 750 mg PO Q6H PRN PRN Reason: Heartburn Last Admin: 04/27/25 12:31 Dose: 750 mg Docusate Sodium (Docusate Sodium 100 Mg Capsule) 100 mg PO BID PRN PRN Reason: Constipation Last Admin: 04/18/25 15:29 Dose: 100 mg Hydroxyzine HCl (Hydroxyzine Hcl 25 Mg Tablet) 25 mg PO Q6H PRN PRN Reason: mild anxiety Last Admin: 05/09/25 18:21 Dose: 25 mg Hydroxyzine HCl (Hydroxyzine Hcl 25 Mg Tablet) 25 mg PO BEDTIME [facility] Last Admin: 05/09/25 20:47 Dose: 25 mg [place] Carbonate ([place] Carbonate Er 450 Mg Tablet.Er) 450 mg PO BEDTIME [facility] Last Admin: 05/09/25 20:47 Dose: 450 mg Loperamide HCl (Loperamide Hcl 2 Mg Capsule) 2 mg PO Q6H PRN PRN Reason: Diarrhea Lorazepam (Lorazepam 1 Mg Tablet) 1 mg PO Q6H PRN PRN Reason: severe anxiety Last Admin: 05/03/25 15:25 Dose: 1 mg Magnesium Hydroxide (Milk Of Magnesia 30 Ml Oral.Susp) 30 ml PO DAILY PRN PRN Reason: Constipation Last Admin: 04/21/25 17:12 Dose: 30 ml Melatonin (Melatonin 3 Mg Tablet) 6 mg PO BEDTIME [facility] Last Admin: 05/09/25 20:46 Dose: 6 mg Naloxone HCl (Naloxone Hcl 0.4 Mg/Ml Vial) 0.04 mg IVPUSH Q5M PRN PRN Reason: Excessive sedation or RR < 8 Nicotine (Nicotine 21 Mg Patch.Td24) 21 mg TRANSDERMA DAILY PRN PRN Reason: nicotine craving Nicotine Polacrilex (Nicotine Polacrilex 2 Mg Gum) 2 mg BUCCAL Q2H PRN PRN Reason: Nicotine Cravings Patient Own Medication ( Cariprazine [Vraylar ] 4.5mg Capsule) 1 each PO DAILY [facility] Last Admin: 05/09/25 08:23 Dose: 1 each Olanzapine (Olanzapine 5 Mg Tablet) 5 mg PO BID PRN PRN Reason: agitation Last Admin: 04/22/25 13:50 Dose: 5 mg Omeprazole (Omeprazole 40 Mg Capsule.Dr) 40 mg PO BID@0630,1630 [facility] Last Admin: 05/09/25 16:19 Dose: 40 mg Ondansetron HCl (Ondansetron Odt 4 Mg Tab.Rapdis) 4 mg TRANSLINGU Q6H PRN PRN Reason: Nausea and Vomiting Last Admin: 05/06/25 20:34 Dose: 4 mg Quetiapine Fumarate (Quetiapine Fumarate 25 Mg Tablet) 25 mg PO BEDTIME [facility] Last Admin: 05/09/25 20:47 Dose: 25 mg Sucralfate (Sucralfate Oral Suspension 1 Gm/10 Ml Oral.Susp) 1 gm PO QIDACHS [facility] Last Admin: 05/09/25 20:46 Dose: 1 gm Thiamine HCl (Thiamine Hcl 100 Mg Tablet) 100 mg PO BID [facility] Last Admin: 05/09/25 20:47 Dose: 100 mg Allergies Allergies Allergy/AdvReac Type Severity Reaction Status Date / Time bee pollen Allergy Severe Anaphylaxis Verified 03/21/25 14:48 levofloxacin (From Levaquin) Allergy Severe Itching Verified 03/21/25 14:48 enoxaparin (From Lovenox) Allergy Intermediate Rash Verified 03/21/25 14:48 Seasonal Allergies Allergy Mild Runny Nose Verified 03/21/25 14:48 venlafaxine (From Effexor) Allergy Mild Constipatio Verified 03/21/25 14:48 n Penicillins Allergy Unknown Unknown Verified 03/21/25 14:48 Assessment & Plan Assessment & Plan (1) Bipolar 1 disorder, depressed, severe: Status: Acute Code(s): F31.4 - Bipolar disorder, current episode depressed, severe, without psychotic features (2) Catatonia: Status: Acute Code(s): F06.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 Discussing with family and outpatient providers how best to prevent relapse. Vraylar does seem to be effective well tolerated 05/07/2025 Tolerating Vraylar lithium started risks benefits alternatives reviewed patient's labs generally unremarkable minimally elevated LFTs. TSH renal function unremarkable 05/08/2025 Increase lithium to 450 mg continue Vraylar discharge planning 05/09/25: Meet with patient in sensory room, report sleep and appetite have been good. Less anxious and depressed. She denies side effects. Compliant with meds. She is looking forward to going home but they suggest assisted living but I want to go back to my apartment. Denies any safety concerns. Visible, pleasant, calm and cooperative. Per nursing, patient slept for 5+ hours. Patient educated on: diagnosis, medication risk/benefits and therapeutic strategies Informed Consent: understands and further education needed Reason for continued inpatient stay Substantial Risk for: med/psych decompensation Time Spent With Patient Time: Total time managing care of this patient today ____ minutes.
[2025-05-10 07:54] VITALS: BP 127/75; PULSE 86; RESP 18; TEMP 36.1; O2SAT 98
[2025-05-10] MEDS: Sucralfate Oral Suspension 1 GM/10 ML ORAL.SUSP PO ×4 (08:16→20:14)
[2025-05-10 20:08] VITALS: BP 122/77; PULSE 92; RESP 15; TEMP 36.2; O2SAT 96
--- NOTE | 2025-05-10 22:57 | HO.PSYCHPN ---
Subjective Subjective Date of Service: 05/10/25 Reason For Visit: catatonia /bipolar depression Subjective Notes: Conditional Voluntary Healthcare Proxy: Yes Guardianship: No Medical Problems Affecting Mental Status: No Interim History: Medical record and nursing notes reviewed; case discussed during rounds with team/nursing staff, and met with patient for supportive therapy/psychoeducation, as well as medication management. Patient reports she did not sleep well but good appetite. Denies anxiety or depression. Denies safety concerns. Report she will have no more ECT. She is looking forward to be discharged this week back to her own place. Per nursing patient slept for 8 hours was medication compliant, good appetite. No issues Medication Compliance: Yes Side effects from medications: No Attending Groups: Yes Review of Systems Acute medical concerns: No Medical Review of Systems: unchanged Review of Systems Review of Systems Constitutional: Denies fatigue and Denies fever(s) Cardiovascular: Denies chest pain and Denies dyspnea Respiratory: Denies dyspnea Gastrointestinal: Denies abdominal pain Psychiatric: denies suicidal ideation Endocrine: Denies fatigue Yes all other systems are reviewed and are negative Mental Status Exam Mental Status Exam Narrative: Patient is A+O x4, future focus. Less anxious and depression, less racing thoughts, calm, pleasant, and cooperative. Better concentration. Engaged in full conversation without any issues. Thought process is more organized and linear. Thought content is on treatment. No SI/SIB/HI/AVH. Fair judgment and insight. Speech is less pressure. Diagnostics Vital Signs (24Hr): Vital Signs - 24 hr 05/10/25 07:54 05/10/25 20:08 Temperature 97.0 F 97.2 F Pulse Rate 86 92 Respiratory Rate 18 15 Blood Pressure 127/75 122/77 Pulse Oximetry 98 96 Oxygen Delivery Method Room Air Room Air BMI result Body Mass Index 23.5 Labs 05/07/25 07:08 05/07/25 07:08 Imaging Radiology Impressions: ITS Impressions Head CT 04/17/25 09:49 IMPRESSION: Stable exam. No acute intracranial findings. Electronically signed by: Massiel Tucker MD 04/17/2025 10:22 AM EDT Medications Medications Current Medications Acetaminophen (Acetaminophen 325 Mg Tablet) 650 mg PO Q6H PRN PRN Reason: Headache/Pain, Scale 1-10 Last Admin: 04/23/25 08:38 Dose: 650 mg Al Hydroxide/Mg Hydroxide (Magnesium Hydrox/Alum Hydrox 30 Ml Oral.Susp) 30 ml PO Q6H PRN PRN Reason: Heartburn/Nausea Last Admin: 04/27/25 14:00 Dose: 30 ml Calcium Carbonate (Calcium Carbonate 750 Mg Tab.Chew) 750 mg PO Q6H PRN PRN Reason: Heartburn Last Admin: 04/27/25 12:31 Dose: 750 mg Docusate Sodium (Docusate Sodium 100 Mg Capsule) 100 mg PO BID PRN PRN Reason: Constipation Last Admin: 04/18/25 15:29 Dose: 100 mg Hydroxyzine HCl (Hydroxyzine Hcl 25 Mg Tablet) 25 mg PO Q6H PRN PRN Reason: mild anxiety Last Admin: 05/10/25 22:25 Dose: 25 mg Hydroxyzine HCl (Hydroxyzine Hcl 25 Mg Tablet) 25 mg PO BEDTIME [facility] Last Admin: 05/10/25 20:14 Dose: 25 mg [place] Carbonate ([place] Carbonate Er 450 Mg Tablet.Er) 450 mg PO BEDTIME [facility] Last Admin: 05/10/25 20:14 Dose: 450 mg Loperamide HCl (Loperamide Hcl 2 Mg Capsule) 2 mg PO Q6H PRN PRN Reason: Diarrhea Lorazepam (Lorazepam 1 Mg Tablet) 1 mg PO Q6H PRN PRN Reason: severe anxiety Last Admin: 05/03/25 15:25 Dose: 1 mg Magnesium Hydroxide (Milk Of Magnesia 30 Ml Oral.Susp) 30 ml PO DAILY PRN PRN Reason: Constipation Last Admin: 04/21/25 17:12 Dose: 30 ml Melatonin (Melatonin 3 Mg Tablet) 6 mg PO BEDTIME [facility] Last Admin: 05/10/25 20:14 Dose: 6 mg Naloxone HCl (Naloxone Hcl 0.4 Mg/Ml Vial) 0.04 mg IVPUSH Q5M PRN PRN Reason: Excessive sedation or RR < 8 Nicotine (Nicotine 21 Mg Patch.Td24) 21 mg TRANSDERMA DAILY PRN PRN Reason: nicotine craving Nicotine Polacrilex (Nicotine Polacrilex 2 Mg Gum) 2 mg BUCCAL Q2H PRN PRN Reason: Nicotine Cravings Patient Own Medication ( Cariprazine [Vraylar ] 4.5mg Capsule) 1 each PO DAILY [facility] Last Admin: 05/10/25 08:16 Dose: 1 each Olanzapine (Olanzapine 5 Mg Tablet) 5 mg PO BID PRN PRN Reason: agitation Last Admin: 04/22/25 13:50 Dose: 5 mg Omeprazole (Omeprazole 40 Mg Capsule.Dr) 40 mg PO BID@0630,1630 [facility] Last Admin: 05/10/25 16:08 Dose: 40 mg Ondansetron HCl (Ondansetron Odt 4 Mg Tab.Rapdis) 4 mg TRANSLINGU Q6H PRN PRN Reason: Nausea and Vomiting Last Admin: 05/06/25 20:34 Dose: 4 mg Quetiapine Fumarate (Quetiapine Fumarate 25 Mg Tablet) 25 mg PO BEDTIME [facility] Last Admin: 05/10/25 20:14 Dose: 25 mg Sucralfate (Sucralfate Oral Suspension 1 Gm/10 Ml Oral.Susp) 1 gm PO QIDACHS [facility] Last Admin: 05/10/25 20:14 Dose: 1 gm Thiamine HCl (Thiamine Hcl 100 Mg Tablet) 100 mg PO BID [facility] Last Admin: 05/10/25 20:13 Dose: 100 mg Allergies Allergies Allergy/AdvReac Type Severity Reaction Status Date / Time bee pollen Allergy Severe Anaphylaxis Verified 03/21/25 14:48 levofloxacin (From Levaquin) Allergy Severe Itching Verified 03/21/25 14:48 enoxaparin (From Lovenox) Allergy Intermediate Rash Verified 03/21/25 14:48 Seasonal Allergies Allergy Mild Runny Nose Verified 03/21/25 14:48 venlafaxine (From Effexor) Allergy Mild Constipatio Verified 03/21/25 14:48 n Penicillins Allergy Unknown Unknown Verified 03/21/25 14:48 Assessment & Plan Assessment & Plan (1) Bipolar 1 disorder, depressed, severe: Status: Acute Code(s): F31.4 - Bipolar disorder, current episode depressed, severe, without psychotic features (2) Catatonia: Status: Acute Code(s): F06.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 Discussing with family and outpatient providers how best to prevent relapse. Vraylar does seem to be effective well tolerated 05/07/2025 Tolerating Vraylar lithium started risks benefits alternatives reviewed patient's labs generally unremarkable minimally elevated LFTs. TSH renal function unremarkable 05/08/2025 Increase lithium to 450 mg continue Vraylar discharge planning 05/09/25: Meet with patient in sensory room, report sleep and appetite have been good. Less anxious and depressed. She denies side effects. Compliant with meds. She is looking forward to going home but they suggest assisted living but I want to go back to my apartment. Denies any safety concerns. Visible, pleasant, calm and cooperative. Per nursing, patient slept for 5+ hours. 05/10/25: Patient reports she did not sleep well but good appetite. Denies anxiety or depression. Denies safety concerns. Report she will have no more ECT. She is looking forward to be discharged this week back to her own place. Per nursing patient slept for 8 hours was medication compliant, good appetite. No issues Patient educated on: diagnosis, medication risk/benefits and therapeutic strategies Informed Consent: understands Reason for continued inpatient stay Substantial Risk for: med/psych decompensation Time Spent With Patient Time: Total time managing care of this patient today ____ minutes.
[2025-05-11 08:00] VITALS: BP 113/72; PULSE 85; RESP 17; TEMP 37; O2SAT 96
[2025-05-11] MEDS: Sucralfate Oral Suspension 1 GM/10 ML ORAL.SUSP PO ×4 (08:57→20:28)
[2025-05-11 20:00] VITALS: BP 125/68; PULSE 73; RESP 16; TEMP 36.7; O2SAT 96
--- NOTE | 2025-05-11 23:24 | P.PNPSI_ITS ---
Subjective Subjective Date of Service: 05/11/25 Reason For Visit: catatonia /bipolar depression Subjective Notes: Conditional Voluntary Healthcare Proxy: Yes Interim History: Pt seen case reviewed with tx planning . Pt has been cooiperative some difficulty with sleep no lucrecia noted social enegaged accepting of d/c plan Mental Status Exam Mental Status Exam Narrative: Patient is A+O x4, future focus. Less anxious and depression, less racing thoughts, calm, pleasant, and cooperative. Better concentration. Engaged in full conversation without any issues. Thought process is more organized and linear. Thought content is on treatment. No SI/SIB/HI/AVH. Fair judgment and insight. Accepting of tx no c/o side effects Diagnostics Vital Signs (24Hr): Vital Signs - 24 hr 05/11/25 08:00 Temperature 98.6 F Pulse Rate 85 Respiratory Rate 17 Blood Pressure 113/72 Pulse Oximetry 96 Oxygen Delivery Method Room Air BMI result Body Mass Index 23.5 Labs 05/07/25 07:08 05/07/25 07:08 Imaging Radiology Impressions: ITS Impressions Head CT 04/17/25 09:49 IMPRESSION: Stable exam. No acute intracranial findings. Electronically signed by: Massiel Tucker MD 04/17/2025 10:22 AM EDT RP Medications Medications Current Medications Acetaminophen (Acetaminophen 325 Mg Tablet) 650 mg PO Q6H PRN PRN Reason: Headache/Pain, Scale 1-10 Last Admin: 04/23/25 08:38 Dose: 650 mg Al Hydroxide/Mg Hydroxide (Magnesium Hydrox/Alum Hydrox 30 Ml Oral.Susp) 30 ml PO Q6H PRN PRN Reason: Heartburn/Nausea Last Admin: 04/27/25 14:00 Dose: 30 ml Calcium Carbonate (Calcium Carbonate 750 Mg Tab.Chew) 750 mg PO Q6H PRN PRN Reason: Heartburn Last Admin: 04/27/25 12:31 Dose: 750 mg Docusate Sodium (Docusate Sodium 100 Mg Capsule) 100 mg PO BID PRN PRN Reason: Constipation Last Admin: 04/18/25 15:29 Dose: 100 mg Hydroxyzine HCl (Hydroxyzine Hcl 25 Mg Tablet) 25 mg PO Q6H PRN PRN Reason: mild anxiety Last Admin: 05/10/25 22:25 Dose: 25 mg Hydroxyzine HCl (Hydroxyzine Hcl 25 Mg Tablet) 25 mg PO BEDTIME [facility] Last Admin: 05/11/25 20:29 Dose: 25 mg [place] Carbonate ([place] Carbonate Er 300 Mg Tablet.Er) 600 mg PO BEDTIME [facility] Last Admin: 05/11/25 20:28 Dose: 600 mg Loperamide HCl (Loperamide Hcl 2 Mg Capsule) 2 mg PO Q6H PRN PRN Reason: Diarrhea Lorazepam (Lorazepam 1 Mg Tablet) 1 mg PO Q6H PRN PRN Reason: severe anxiety Last Admin: 05/03/25 15:25 Dose: 1 mg Lorazepam (Lorazepam 1 Mg Tablet) 1 mg PO BEDTIME PRN PRN Reason: Insomnia Magnesium Hydroxide (Milk Of Magnesia 30 Ml Oral.Susp) 30 ml PO DAILY PRN PRN Reason: Constipation Last Admin: 04/21/25 17:12 Dose: 30 ml Melatonin (Melatonin 3 Mg Tablet) 6 mg PO BEDTIME [facility] Last Admin: 05/11/25 20:28 Dose: 6 mg Nicotine (Nicotine 21 Mg Patch.Td24) 21 mg TRANSDERMA DAILY PRN PRN Reason: nicotine craving Nicotine Polacrilex (Nicotine Polacrilex 2 Mg Gum) 2 mg BUCCAL Q2H PRN PRN Reason: Nicotine Cravings Patient Own Medication ( Cariprazine [Vraylar ] 4.5mg Capsule) 1 each PO DAILY [facility] Last Admin: 05/11/25 08:58 Dose: 1 each Olanzapine (Olanzapine 5 Mg Tablet) 5 mg PO BID PRN PRN Reason: agitation Last Admin: 04/22/25 13:50 Dose: 5 mg Omeprazole (Omeprazole 40 Mg Capsule.Dr) 40 mg PO BID@0630,1630 [facility] Last Admin: 05/11/25 17:24 Dose: 40 mg Ondansetron HCl (Ondansetron Odt 4 Mg Tab.Rapdis) 4 mg TRANSLINGU Q6H PRN PRN Reason: Nausea and Vomiting Last Admin: 05/06/25 20:34 Dose: 4 mg Quetiapine Fumarate (Quetiapine Fumarate 50 Mg Tablet) 50 mg PO BEDTIME [facility] Last Admin: 05/11/25 20:29 Dose: 50 mg Sucralfate (Sucralfate Oral Suspension 1 Gm/10 Ml Oral.Susp) 1 gm PO QIDACHS [facility] Last Admin: 05/11/25 20:28 Dose: 1 gm Thiamine HCl (Thiamine Hcl 100 Mg Tablet) 100 mg PO BID [facility] Last Admin: 05/11/25 20:29 Dose: 100 mg Allergies Allergies Allergy/AdvReac Type Severity Reaction Status Date / Time bee pollen Allergy Severe Anaphylaxis Verified 03/21/25 14:48 levofloxacin (From Levaquin) Allergy Severe Itching Verified 03/21/25 14:48 enoxaparin (From Lovenox) Allergy Intermediate Rash Verified 03/21/25 14:48 Seasonal Allergies Allergy Mild Runny Nose Verified 03/21/25 14:48 venlafaxine (From Effexor) Allergy Mild Constipatio Verified 03/21/25 14:48 n Penicillins Allergy Unknown Unknown Verified 03/21/25 14:48 Assessment & Plan Assessment & Plan (1) Bipolar 1 disorder, depressed, severe: Status: Acute Code(s): F31.4 - Bipolar disorder, current episode depressed, severe, without psychotic features (2) Catatonia: Status: Acute Code(s): F06.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 Discussing with family and outpatient providers how best to prevent relapse. Vraylar does seem to be effective well tolerated 05/07/2025 Tolerating Vraylar lithium started risks benefits alternatives reviewed patient's labs generally unremarkable minimally elevated LFTs. TSH renal function unremarkable 05/08/2025 Increase lithium to 450 mg continue Vraylar discharge planning 05/09/25: Meet with patient in sensory room, report sleep and appetite have been good. Less anxious and depressed. She denies side effects. Compliant with meds. She is looking forward to going home but they suggest assisted living but I want to go back to my apartment. Denies any safety concerns. Visible, pleasant, calm and cooperative. Per nursing, patient slept for 5+ hours. 05/10/25: Patient reports she did not sleep well but good appetite. Denies anxiety or depression. Denies safety concerns. Report she will have no more ECT. She is looking forward to be discharged this week back to her own place. Per nursing patient slept for 8 hours was medication compliant, good appetite. No issues 05/11/25 cont lithium 600mg hs vraylar Patient educated on: diagnosis and medication risk/benefits Guardian/Caregiver educated on: diagnosis and medication risk/benefits Informed Consent: further education needed Reason for continued inpatient stay Substantial Risk for: inability to function, rapid decompensation and med/psych decompensation Time Spent With Patient Time: Total time managing care of this patient today _25___ minutes.
[2025-05-12 08:00] VITALS: BP 120/71; PULSE 87; RESP 18; TEMP 36.7; O2SAT 97
[2025-05-12 08:13] LABS: Lithium 0.39 mmol/L (0.60-1.20)
[2025-05-12] MEDS: Sucralfate Oral Suspension 1 GM/10 ML ORAL.SUSP PO ×4 (08:46→20:21)
--- NOTE | 2025-05-12 17:45 | P.PNPSI_ITS ---
Subjective Subjective Date of Service: 05/12/25 Reason For Visit: catatonia /bipolar depression Subjective Notes: Conditional Voluntary Healthcare Proxy: Yes Interim History: Pt seen in psych f/u mood has been generally stable future oriented sleep appetite ok Mental Status Exam Mental Status Exam Narrative: Patient is A+O x4, future focus. some blunting , less racing thoughts, calm, pleasant, and cooperative. Better concentration. Engaged in full conversation without any issues. Thought process is more organized and linear. Thought content is on treatment and d/c . No SI/SIB/HI/AVH. Fair judgment and insight. Accepting of tx no c/o side effects Diagnostics Vital Signs (24Hr): Vital Signs - 24 hr 05/11/25 20:00 05/12/25 08:00 Temperature 98.1 F 98.1 F Pulse Rate 73 87 Respiratory Rate 16 18 Blood Pressure 125/68 120/71 Pulse Oximetry 96 97 Oxygen Delivery Method Room Air Room Air BMI result Body Mass Index 23.5 Labs 05/07/25 07:08 05/07/25 07:08 Labs: Laboratory Results - last 48 hr 05/12/25 07:36 [place] 0.39 L Imaging Radiology Impressions: ITS Impressions Head CT 04/17/25 09:49 IMPRESSION: Stable exam. No acute intracranial findings. Electronically signed by: Massiel Tucker MD 04/17/2025 10:22 AM EDT Medications Medications Current Medications Acetaminophen (Acetaminophen 325 Mg Tablet) 650 mg PO Q6H PRN PRN Reason: Headache/Pain, Scale 1-10 Last Admin: 04/23/25 08:38 Dose: 650 mg Al Hydroxide/Mg Hydroxide (Magnesium Hydrox/Alum Hydrox 30 Ml Oral.Susp) 30 ml PO Q6H PRN PRN Reason: Heartburn/Nausea Last Admin: 04/27/25 14:00 Dose: 30 ml Calcium Carbonate (Calcium Carbonate 750 Mg Tab.Chew) 750 mg PO Q6H PRN PRN Reason: Heartburn Last Admin: 04/27/25 12:31 Dose: 750 mg Docusate Sodium (Docusate Sodium 100 Mg Capsule) 100 mg PO BID PRN PRN Reason: Constipation Last Admin: 04/18/25 15:29 Dose: 100 mg Hydroxyzine HCl (Hydroxyzine Hcl 25 Mg Tablet) 25 mg PO Q6H PRN PRN Reason: mild anxiety Last Admin: 05/10/25 22:25 Dose: 25 mg Hydroxyzine HCl (Hydroxyzine Hcl 25 Mg Tablet) 25 mg PO BEDTIME [facility] [place] Last Admin: 05/11/25 20:29 Dose: 25 mg [place] Carbonate ([place] Carbonate Er 300 Mg Tablet.Er) 600 mg PO BEDTIME [facility] Last Admin: 05/11/25 20:28 Dose: 600 mg Loperamide HCl (Loperamide Hcl 2 Mg Capsule) 2 mg PO Q6H PRN PRN Reason: Diarrhea Lorazepam (Lorazepam 1 Mg Tablet) 1 mg PO Q6H PRN PRN Reason: severe anxiety Last Admin: 05/03/25 15:25 Dose: 1 mg Lorazepam (Lorazepam 1 Mg Tablet) 1 mg PO BEDTIME PRN PRN Reason: Insomnia Magnesium Hydroxide (Milk Of Magnesia 30 Ml Oral.Susp) 30 ml PO DAILY PRN PRN Reason: Constipation Last Admin: 04/21/25 17:12 Dose: 30 ml Melatonin (Melatonin 3 Mg Tablet) 6 mg PO BEDTIME [facility] [place] Last Admin: 05/11/25 20:28 Dose: 6 mg Nicotine (Nicotine 21 Mg Patch.Td24) 21 mg TRANSDERMA DAILY PRN PRN Reason: nicotine craving Nicotine Polacrilex (Nicotine Polacrilex 2 Mg Gum) 2 mg BUCCAL Q2H PRN PRN Reason: Nicotine Cravings Patient Own Medication ( Cariprazine [Vraylar ] 4.5mg Capsule) 1 each PO DAILY [facility] Last Admin: 05/12/25 08:46 Dose: 1 each Olanzapine (Olanzapine 5 Mg Tablet) 5 mg PO BID PRN PRN Reason: agitation Last Admin: 04/22/25 13:50 Dose: 5 mg Omeprazole (Omeprazole 40 Mg Capsule.Dr) 40 mg PO BID@0630,1630 [facility] [place] Last Admin: 05/12/25 16:03 Dose: 40 mg Ondansetron HCl (Ondansetron Odt 4 Mg Tab.Rapdis) 4 mg TRANSLINGU Q6H PRN PRN Reason: Nausea and Vomiting Last Admin: 05/06/25 20:34 Dose: 4 mg Quetiapine Fumarate (Quetiapine Fumarate 50 Mg Tablet) 50 mg PO BEDTIME [facility] [place] Last Admin: 05/11/25 20:29 Dose: 50 mg Sucralfate (Sucralfate Oral Suspension 1 Gm/10 Ml Oral.Susp) 1 gm PO QIDACHS [facility] [place] Last Admin: 05/12/25 16:03 Dose: 1 gm Thiamine HCl (Thiamine Hcl 100 Mg Tablet) 100 mg PO BID [facility] [place] Last Admin: 05/12/25 08:46 Dose: 100 mg Allergies Allergies Allergy/AdvReac Type Severity Reaction Status Date / Time bee pollen Allergy Severe Anaphylaxis Verified 03/21/25 14:48 levofloxacin (From Levaquin) Allergy Severe Itching Verified 03/21/25 14:48 enoxaparin (From Lovenox) Allergy Intermediate Rash Verified 03/21/25 14:48 Seasonal Allergies Allergy Mild Runny Nose Verified 03/21/25 14:48 venlafaxine (From Effexor) Allergy Mild Constipatio Verified 03/21/25 14:48 n Penicillins Allergy Unknown Unknown Verified 03/21/25 14:48 Assessment & Plan Assessment & Plan (1) Bipolar 1 disorder, depressed, severe: Status: Acute Code(s): F31.4 - Bipolar disorder, current episode depressed, severe, without psychotic features (2) Catatonia: Status: Acute Code(s): F06.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 Discussing with family and outpatient providers how best to prevent relapse. Vraylar does seem to be effective well tolerated 05/07/2025 Tolerating Vraylar lithium started risks benefits alternatives reviewed patient's labs generally unremarkable minimally elevated LFTs. TSH renal function unremarkable 05/08/2025 Increase lithium to 450 mg continue Vraylar discharge planning 05/09/25: Meet with patient in sensory room, report sleep and appetite have been good. Less anxious and depressed. She denies side effects. Compliant with meds. She is looking forward to going home but they suggest assisted living but I want to go back to my apartment. Denies any safety concerns. Visible, pleasant, calm and cooperative. Per nursing, patient slept for 5+ hours. 05/10/25: Patient reports she did not sleep well but good appetite. Denies anxiety or depression. Denies safety concerns. Report she will have no more ECT. She is looking forward to be discharged this week back to her own place. Per nursing patient slept for 8 hours was medication compliant, good appetite. No issues 05/12/25 pt stable for d/c in am lithium 750 ck level Patient educated on: medication risk/benefits Informed Consent: further education needed Reason for continued inpatient stay Substantial Risk for: rapid decompensation Time Spent With Patient Time: 20Total time managing care of this patient today ____ minutes.
[2025-05-12 20:19] VITALS: BP 113/56; PULSE 57; RESP 16; TEMP 36.9; O2SAT 96
[2025-05-13 07:52] VITALS: BP 113/63; PULSE 80; RESP 18; TEMP 36.7; O2SAT 97
[2025-05-13] MEDS: Sucralfate Oral Suspension 1 GM/10 ML ORAL.SUSP PO ×2 (08:01→11:00)
[2025-05-13 08:22] LABS: Lithium 0.42 mmol/L (0.60-1.20)
--- NOTE | 2025-05-13 13:37 | P.DS_ITS ---
DS: Providers Provider Date of Service: 05/13/25 Date of admission: 04/14/25 11:38 Date of discharge: 05/13/25 Primary care physician: Unknown Physician Admitting clinician: Pauly Box Attending physician on admission: Phillip Rangel Attending physician on discharge: Phillip Rangel Discharging clinician: Phillip Rangel DS: Diagnosis Discharge Diagnosis (1) Bipolar 1 disorder, depressed, severe: Status: Acute (2) Catatonia: Status: Acute (3) GERD (gastroesophageal reflux disease): Status: Acute DS: Medications Discharge Medications Home Medications: Home Medications ?Medication ?Instructions ?Recorded ?Confirmed loperamide 2 mg tablet 2 mg PO Q6H PRN Diarrhea 04/14/25 Previous Rx's ?Medication ?Instructions ?Recorded cariprazine 4.5 mg capsule 4.5 mg PO DAILY 30 days #30 caps 05/05/25 docusate sodium 100 mg capsule 1 cap PO BID PRN Consti pation 30 05/13/25 days #60 caps hydroxyzine HCl 25 mg tablet 25 mg PO BEDTIME 30 days #30 tabs 05/13/25 lithium carbonate 300 mg 750 mg (2.5 x 300 mg) PO BED TIME 05/13/25 tablet,extended release 30 days #75 tabs melatonin 3 mg tablet 6 mg (2 x 3 mg) PO BEDTIME P RN 05/13/25 Sleep 30 days #60 tabs nicotine 21 mg/24 hr daily 21 mg transdermal DAILY PRN 05/13/25 transdermal patch nicotine craving 14 days #14 ea ondansetron HCl 4 mg tablet 4 mg PO Q6H PRN Nausea And 05/13/25 Vomiting 30 days #15 tabs pantoprazole 40 mg tablet,delayed 40 mg PO BID 30 days #60 tabs 05/13/25 release quetiapine 50 mg tablet 50 mg PO DIRECTED 30 days #60 05/13/25 tabs sucralfate 100 mg/mL oral 1 g (10 mL) PO QIDACHS PRN A benny 05/13/25 suspension Reflux 30 days #100 mL thiamine HCl (vitamin B1) 100 mg 100 mg PO BID 30 days #60 tabs 05/13/25 tablet (Vitamin B-1) Mental Status Exam Mental Status Exam Narrative: Patient is A+O x4, future focus. some blunting , logical calm, pleasant, and cooperative. Better concentration. Somewhat concrete Engaged in full conversation without any issues. Thought process is more organized and linear. Thought content is on treatment and d/c . No SI/SIB/HI/AVH. Fair judgment and insight. Accepting of tx no c/o side effects Data Data Completed and Pending Completed studies during hospitalization [Text1]: 05/07/25 05/12/25 05/13/25 07:08 07:36 07:15 WBC 5.2 RBC 3.86 L Hgb 11.7 L Hct 36.4 L MCV 94.3 MCH 30.3 MCHC 32.1 RDW 15.8 Plt Count 258 D MPV 8.4 L Immature Gran % (Auto) 0.6 H Neut % (Auto) 55.5 Lymph % (Auto) 32.9 [place] % (Auto) 7.9 Eos % (Auto) 2.5 Baso % (Auto) 0.6 Lymph # (Auto) 1.7 [place] # (Auto) 0.4 Eos # (Auto) 0.1 Baso # (Auto) 0.0 Abs Immat Gran (auto) 0.03 Absolute Neuts (auto) 2.9 Absolute Nucleated RBC 0.000 Nucleated RBC % (auto) 0.0 Sodium 138 Potassium 4.0 Chloride 105 Carbon Dioxide 25 Anion Gap 12 BUN 19 H Creatinine 0.66 Estim Creat Clear Calc 80.4 Estimated GFR > 60 Random Glucose 102 Estimat Average Glucose 97 Hemoglobin A1c % 5.0 Calcium 9.3 Total Bilirubin 0.4 AST 45 H ALT 52 H Alkaline Phosphatase 89 Total Protein 6.6 Albumin 3.9 TSH 0.43 [place] 0.39 L 0.42 L Imaging Diagnostic Imaging Impressions Head CT 04/17/25 09:49 IMPRESSION: Stable exam. No acute intracranial findings. Electronically signed by: Massiel Tucker MD 04/17/2025 10:22 AM EDT DS: Summary Hospital Course Hospital Course: Signed Patient: Steffi Robertson MR#: [id number] : 1955 Acct:[id number] Age/Sex: 69 / F Loc: [id number].PGERI 182-[address]: Pauly Box MARINE STRUCTURAL DESIGNER cc: Phillip Rangel MD; Pauly Box MARINE STRUCTURAL DESIGNER~ HPI Date of Service: 04/14/25 Chief Complaint: decomp Sources of Information: patient interviewed, chart reviewed and crisis/core team assessment reviewed HPI Subjective Notes: Section 12B Healthcare Proxy: Yes Guardianship: No Medical Problems Affecting Mental Status: No Narrative: Per [facility] record: patient is a 69 yo female with hx history of UTI, depression, bipolar 1 depression, osteoarthritis, status post cardiac catheterization, anxiety, GERD, insomnia, osteopenia, 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 Patient has been at [facility] for approximately 3 weeks. Patient originally seen in [facility] after patient called 911. Prior to that patient had a puppy but could no longer care for the puppy and the puppy was taken away. Patient appeared to have a breakdown and was calling sister incessantly regarding the puppy and apparently called 911 out of distress. Patient was transferred to [facility] on a section 12 from [facility] for MDD, intrusive thoughts and auditory hallucinations. Pt was taken to [facility] ED from [facility] on 03/16/2025 and was diagnosed with a UTI and was discharged back to [facility] on oral antibiotics. Initial concern was patient was not eating for 3-4 days prior to being seen in the ED. At that time, patient was verbal and was stating she had pain everywhere. Patient has refused oral antibiotics at [facility] after sending back from ED first time. Patient then returned to the ED 03/20/2025 status post a fall with increased confusion. Workup in the ED was unremarkable aside from the known UTI. Patient presents in a catatonic state. Patient is mute and appears to be in a state of stupor. Patient is making eye contact but does not respond appropriately. Per patient's sister Jennifer, patient had been on Seroquel and was doing very well for approximately 5 years until the recent incident with a puppy. At [facility], the psychiatrist had mentioned a new medication that they were considering but patient had not yet started because she was refusing oral medications. From 03/20/25 to 04/14/25: Patient was admitted for bipolar disorder with catatonia moderate protein calorie malnutrition. Was treated with IV Valium, multiple ECTs, was supported with parenteral nutrition. Slowly patient had improvement, became more verbal, more participatory and diet significantly increased and was able to be weaned off parenteral nutrition. Was seen by Psychiatry who adjusted medications. Patient is still having significant acute psychiatric issues so will be discharged to inpatient psych. During hos pitalization patient did have episode of acute hypoxic respiratory failure possibly due to pneumonia and completed 1 week of ertapenem. On S1: meet with patient for psychiatric evaluation. This provider is familiar with the case as patient was seen by this provider a couple times on med floor and twice over at [facility] over the weekends probably two months ago. Compare to 3 weeks ago. Patient is verbal and engagable as she was mute and not taking food or OP meds. She reports reason for being here is stuff that I have seen things. A lot of people's but denies AVH at this current time. She is aware of I am at [facility]. Why you keep asking me that questions. I want to talk to my sister and my brother . She is perseverative on making phone calls to her family, having a contact list in her hand and repeatedly saying she wants to make phone calls to her family memeber but she was not able to get a hold of them. Report her brother is Lincoln and her sister is Jennifer. Report she has Bipolar and there is a nurse who helped her manage medication at home. She does not remember what medication she supposed to take. Mood is bad and I want to talk to my sister and brother . Denies SI/SIB/HI/AVH but appear preoccupied, restless, racing thoughts with loud voices. She states I do not want to be here. I want to go home and refuses to sign CV. Therefore she is currently on section 12B. However, agrees to take medication and compliant with food so she can get better. Goal is help me feel better . Patient is A+O, restless with racing thoughts, not truly engage in assessment but verbally, eating diner. Goal directed even though thought content is not on treatment, want to go home. She takes PO PRN medication in the afternoon without any issues. Speech is loud with pressure. Mood is irritable and perserverative. Thought process is disorganized, not linear. Not on treatment. Impaired insight and judgment. Will reach out to HCP-sister- Jennifer for collateral. Will continue with current meds with some changes to address psychotic and manic/depressed symptoms/behavior. Will continue with ECG and hold on BZD prior to scheduled ECT with NPO after midnight per ECT protocol. Past Psychiatric History: Inpt: [facility] 09/09/2021 (catatonia), 11/03/2023; 12/24/23; 06/10/24. 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 Currently is receiving ECT treatment. -Per sister, pt has had depression since her early 20s and has suffered from unspecified chronic pain, surgeries. -Hx of multiple psych admissions to [facility] Past medication trials: seroquel, paliperidone, vraylar. R Medical Evaluation Reviewed: Yes [facility] Medical History Delirium due to another medical condition History of skin cancer Hx of bladder problems VITO (generalized anxiety disorder) Murmur, cardiac Hx of thyroid nodule Osteopenia Hx of skin cancer, basal cell Seasonal allergies Insomnia Constipation GERD (gastroesophageal reflux disease) Anxiety History of electroconvulsive therapy Bipolar 1 disorder Surgical History Hx of colonoscopy H/O elbow surgery History of back surgery Family History: -Depression. In 1998 her great grandfather hung himself. Social History: -Pt has never been , no children. Dog recently . -Pt's mother (age 88), sister, and brother are involved with pt's care. -She graduated h.s. And has bachelors in psychology. She worked at [facility]. Substance History: Not able to obtain d/t clinical presentation Trauma History: deferred. Not able to obtain d/t clinical presentation Diagnostics Vital Signs (24Hr): Vital Signs - 24 hr 04/14/25 12:55 04/14/25 20:00 Temperature 99.1 F 97.4 F Pulse Rate 85 98 Respiratory Rate 18 16 Blood Pressure 105/65 122/72 Pulse Oximetry 93 97 Oxygen Delivery Method Room Air Room Air BMI result Body Mass Index 23.3 Meds/Allergies Meds Home Medications Medication Instructions Recorded Confirmed Type docusate sodium 100 mg capsule 1 cap PO BID PRN Constipation 03/22/25 04/14/25 History loperamide 2 mg tablet 2 mg PO Q6H PRN Diarrhea 03/22/25 04/14/25 History lorazepam 0.5 mg tablet 0.5 mg PO TID 03/22/25 04/14/25 History melatonin 3 mg tablet 3 mg PO BEDTIME PRN Sleep 03/22/25 04/14/25 History ondansetron HCl 4 mg tablet 4 mg PO Q6H PRN Nausea And Vomiting 03/22/25 04/14/25 History pantoprazole 40 mg tablet,delayed 40 mg PO DAILY@0630 03/22/25 04/14/25 History release Allergies Allergies Allergy/AdvReac Type Severity Reaction Status Date / Time bee pollen Allergy Severe Anaphylaxis Verified 03/21/25 14:48 levofloxacin (From Levaquin) Allergy Severe Itching Verified 03/21/25 14:48 enoxaparin (From Lovenox) Allergy Intermediate Rash Verified 03/21/25 14:48 Seasonal Allergies Allergy Mild Runny Nose Verified 03/21/25 14:48 venlafaxine (From Effexor) Allergy Mild Constipatio Verified 03/21/25 14:48 n Penicillins Allergy Unknown Unknown Verified 03/21/25 14:48 Mental Status Exam Mental Status Exam Narrative: Patient is A+O, wearing hospital attire, unkempt hair, distracted, visible, preservative on phone calling sister and brother.. Eyes contact is fair. Denies SI/SIB/HI/AVH. Speech is loud and pressure. Feeling bad , appears preoccupied, restless, racing thoughts. Thought processes disorganized, not linear. Poor and impaired judgment and insight. Assessment & Plan Assessment & Plan (1) Catatonia: Status: Acute Code(s): F06.1 - Catatonic disorder due to known physiological condition (2) Bipolar II, mixed, severe with psychotic behavior: Status: Acute Code(s): F31.81 - Bipolar II disorder Plan HPI: patient is a 69 yo female with hx history of UTI, depression, bipolar 1 depression, osteoarthritis, status post cardiac catheterization, anxiety, GERD, insomnia, osteopenia, 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 Patient has been at [facility] for approximately 3 weeks. Patient originally seen in [facility] after patient called 911. Prior to that patient had a puppy but could no longer care for the puppy and the puppy was taken away. Patient appeared to have a breakdown and was calling sister incessantly regarding the puppy and apparently called 911 out of distress. Patient was transferred to [facility] on a section 12 from [facility] for MDD, intrusive thoughts and auditory hallucinations. She was on Med floor from 03/20/25 to 04/14/25: Patient was admitted for bipolar disorder with catatonia moderate protein calorie malnutrition. Was treated with IV Valium, multiple ECTs, was supported with parenteral nutrition. Slowly patient had improvement, became more verbal, more participatory and diet significantly increased and was able to be weaned off parenteral nutrition. Was seen by Psychiatry who adjusted medications. Patient is still having significant acute psychiatric issues so will be discharged to inpatient psych. During hospitalization patient did have episode of acute hypoxic respiratory failure possibly due to pneumonia and completed 1 week of ertapenem. Formulation/clinical reasoning: Continue presenting with manic/psychotic/catatonia features. Just recently taking PO medication the past 2-3 days plus starting eating, advance to regular diet prior to transferred to . Hospital course: 04/14/25: Continue with ECT as scheduled Ativan 0.5mg TID PO for anxiety/catatonia. Ativan 0.5mg BID PRN For severe anxiety Increase Zypexa 2.5 BID to 5mg BID to target psychotic/bipolar symptoms. BID PRN for severe agitation Plan Patient on 5 minute checks for safety. Admitted to S1. 12B NPO after midnight on . Hold BZD the night before ECT. Work with treatment team to do collateral. Patient educated on: diagnosis, medication risk/benefits and therapeutic strategies Informed Consent: further education needed Reason for continued inpatient stay Substantial Risk for: med/psych decompensation Statement Statement: I have reviewed the history and physical and performed a pertinent examination on my patient. No changes have occurred unless specified. If the History and Physical was not performed prior to admission, the Hospitalist's service will be consulted for completing the admission physical. Time Spent With Patient Time: Total time managing care of this patient today ____ minutes. Dictated By: Pauly Box NP Signed By: <Electronically signed by Pauly Box> 04/14/252134 <Electronically signed by Phillip Rangel MD> 04/14/252308 <Electronically signed by Phillip Rangel MD> 04/14/252308 DD/ 18 TD/TT: 04/14/252018 Audience Development Manager: HOSPITAL COURSE Patient was admitted to the geriatric psychiatry treatment after initially being treated on the medical floor for severe catatonia not eating not drinking requiring TPN and not responding to benzodiazepines for catatonia. Patient was started on ECT while on the medical floor and this was continued for a total of 11 bifrontal treatments. Patient has a history responding well to ECT and did respond this time with significant improvement in mood psychosis and was able to socialize in the milieu take care of her grooming was eating well and eventually sleeping well. Patient has a history of bipolar disorder with recurrent catatonia and at times excited catatonia. Given her bipolar history and history of cycling and depressive episodes it was eventually decide to treat her with lithium which was started after her course of ECT. She was also treated with Vraylar 4.5 mg this could be increased to 6 mg daily but she was not psychotic not overly depressed by the time of discharge. She was future oriented she stated that she had a support system where she lived and did have daily VNA. She denied that she had been drinking at all prior to admission stating that she had and sober and had been taking her medications. Seroquel was added at bedtime to help with insomnia. Patient had no contraindications to lithium her thyroid functioning renal function was unremarkable. Should be noted when catatonic it is quite severe and she required TPN was quite psychotic talking about God and a baby and by the time of discharge was without any psychotic symptoms had a person range of affect. There had been some discussion about referral to rest home setting the patient generally refused the rest home setting and she which seem to have more supervision in her current setting. Would recommend consideration day treatment drop-in center possibly the start program or something like that for structure after discharge. She will be going to [facility] and I did speak with her psychiatric provider during the hospitalization. Patient had not been on a mood stabilizing anti cycling bipolar agent prior to admission and hopefully she will have a more stable course on lithium. Initial lithium level was 0.42 she was discharged on 750 mg and she was given a slip to get a lithium level in a week but would probably check it sometimes Center if possible. Risks benefits and alternatives or reviewed with patient. Her sister is her healthcare proxy. Patient reported no cognitive difficulties with the bifrontal ECT treatment. It did not seem that the patient would be able to do maintenance treatment in an ongoing way. The patient is GERD was treated with Carafate in combination with Prilosec and seem to be very helpful for the patient. Status at Discharge Cognitive/behavioral status at discharge: Patient alert oriented aware of her diagnosis and medication mood described as okay some anxiety about discharge sleep and appetite okay. Functional status at discharge: independent ambulation Overall status at discharge: patient is progressing back to baseline Time Spent with Patient Time attestation: Total time managing care of this patient today 40____ minutes. Time spent: Greater than 30 minutes Discharge Plan Discharge Anticipated Discharge Date/Time: 05/13/25 14:00 Patient Disposition: Home Health Service Discharge Diagnosis: bipolar dx 1 depression moderate recent catatonia Referrals: Ana Polk (Therapist) [Other] - 3-5 Days Referral Note: Ana will reach out ot you for an appointment. If you do not hear from her with in 3-5 days please reach out at the number listed. [facility] [Outside] - 1 Day Referral Note: Your home services will restart after discharge. If there are any issues with this please call the number listed. Ly Schultz RN [Physician, Internal Medicine] - 05/14/25 1:30 pm Referral Note: You will see Ly in office, on 05/14 at 1:30pm. Please call the number listed if you need to reschedule or cancel the appointment Theresa Nelson MD [Physician, Internal Medicine] - 3-5 Days Referral Note: office will be reaching out ot you with in the next 48 hours to schedule a time and date for your appointment. Please reach out to them at the number listed if you do not hear from them with in that time. Discharge Medications: New cariprazine 4.5 mg capsule 4.5 mg PO DAILY 30 Days Qty: 30 1RF lithium carbonate 300 mg Tablet Extended Release 750 mg PO BEDTIME 30 Days Qty: 75 0RF nicotine 21 mg/24 hr Patch 24 Hour 21 mg transdermal DAILY PRN (Reason: nicotine craving) 14 Days Qty: 14 0RF hydroxyzine HCl 25 mg Tablet 25 mg PO BEDTIME 30 Days Qty: 30 0RF quetiapine 50 mg Tablet 50 mg PO DIRECTED 30 Days Qty: 60 0RF Rx Instructions: 1 bedtime may take 1 tab daily as needed for agitation sucralfate 100 mg/mL Suspension 1 g PO QIDACHS PRN (Reason: Acid Reflux) 30 Days Qty: 100 0RF Continued loperamide 2 mg Tablet 2 mg PO Q6H PRN (Reason: Diarrhea) ondansetron HCl 4 mg Tablet 4 mg PO Q6H PRN (Reason: Nausea And Vomiting) 30 Days Qty: 15 0RF thiamine HCl (vitamin B1) [Vitamin B-1] 100 mg tablet 100 mg PO BID 30 Days Qty: 60 1RF docusate sodium 100 mg capsule 1 cap PO BID PRN (Reason: Constipation) 30 Days Qty: 60 0RF Changed melatonin 3 mg Tablet 6 mg PO BEDTIME PRN (Reason: Sleep) 30 Days Qty: 60 0RF pantoprazole 40 mg Tablet,Delayed Release (Dr/Ec) 40 mg PO BID 30 Days Qty: 60 0RF Discontinued lorazepam 0.5 mg Tablet 0.5 mg PO TID olanzapine 2.5 mg Tablet 2.5 mg PO BID Qty: 0 0RF Discharge Orders: Discharge Order (Routine); Ordered 05/13/25 Ordered By: Phillip Rangel Diet: Advance to usual diet Activity on Discharge: As tolerated Stand Alone Forms: Patient Portal Discharge page Print Language: Cymraes Other Ambulatory Orders: [place] (Routine) Timeframe: 1 Week Location: Determined by Patient Ordered By: Phillip Rangel Care Plan Goals: stabilize mood avoid depression and lucrecia stabilize gerd Health Concerns: gerd bilpolar disorder recent catatonia Plan of Treatment: vraylar for bipolar disorder you were started on lithiumFOR BIPOLAR disorder need regular blood work until stable seroquel at bedtime for sleep and anxiety call 911 go to er if feeling unsafe make all your therapy and doctor appts Assessment: pt pleasant stable future oriented not psychotic some anxiety mild dysphoria Discharge Date/Time: 05/13/25 14:15
== END 2025-05-13 14:15 | disposition home health service (06) | DRG 885 ==
PROVIDERS: Nurse Practitioner Family; Psychiatry & Neurology Psychiatry; Admitting Provider Nurse Practitioner Psychiatric/Mental Health; Visit Provider Psychiatry & Neurology Psychiatry
PROC: GZB4ZZZ Other Electroconvulsive Therapy (ICD-10-PCS; CPT 90870; principal; 2025-04-15 08:00)
DX: F31.32 Bipolar disorder, current episode depressed, moderate (principal); K21.9 Gastro-esophageal reflux disease without esophagitis; W19.XXXA Unspecified fall, initial encounter; Y92.230 Patient room in hospital as the place of occurrence of the external cause; F06.1 Catatonic disorder due to known physiological condition; Z86.718 Personal history of other venous thrombosis and embolism; Z79.899 Other long term (current) drug therapy
CPT/HCPCS: 36415; 70450; 80048; 80053; 80061; 80178; 81001; 82607; 82746; 82947; 83036; 84439; 84443; 84484; 85025; 90870; 93005; J0330; J1596; J1805; J2003; J2250; J2704; J7120

== ENCOUNTER 2025-04-14 11:38 | Outpatient (BNV) | payer OTHER, SELFPAY | END 2025-04-20 16:27 | PROVIDERS: Admitting Provider Nurse Practitioner Psychiatric/Mental Health; Visit Provider Internal Medicine Cardiovascular Disease | DX: R10.13 Epigastric pain (principal) | CPT/HCPCS: 93010 ==

== ENCOUNTER 2025-04-14 11:38 | Outpatient (BNV) | payer OTHER, SELFPAY | END 2025-04-17 09:49 | PROVIDERS: Admitting Provider Nurse Practitioner Psychiatric/Mental Health; Visit Provider Radiology Diagnostic Radiology | DX: S09.90XA Unspecified injury of head, initial encounter (principal); W19.XXXA Unspecified fall, initial encounter | CPT/HCPCS: 70450 ==

== ENCOUNTER → 2025-04-14 11:38 | Outpatient (BNV) | payer OTHER, SELFPAY | PROVIDERS: Admitting Provider Nurse Practitioner Psychiatric/Mental Health; Visit Provider Nurse Practitioner Psychiatric/Mental Health | DX: F31.81 Bipolar II disorder (principal); F06.1 Catatonic disorder due to known physiological condition | CPT/HCPCS: 90792; 90870 ==

== ENCOUNTER → 2025-04-14 11:38 | Outpatient (BNV) | payer OTHER, SELFPAY | PROVIDERS: Admitting Provider Nurse Practitioner Psychiatric/Mental Health; Visit Provider Psychiatry & Neurology Psychiatry | DX: F06.1 Catatonic disorder due to known physiological condition (principal) | CPT/HCPCS: 99232 ==

== ENCOUNTER → 2025-04-14 11:38 | Outpatient (BNV) | payer OTHER, SELFPAY | PROVIDERS: Admitting Provider Nurse Practitioner Psychiatric/Mental Health; Visit Provider Nurse Practitioner Family | DX: F06.1 Catatonic disorder due to known physiological condition (principal) | CPT/HCPCS: 99231; 99358 ==